=== PATIENT | female | born 1975 | race Caucasian/White ===

== ENCOUNTER 2018-05-09 14:12 | Emergency (ER) | payer MEDICARE, MEDICAID ==
[~2018-05-09] VITALS: Ht 160 cm; Wt 72.1 kg
[~2018-05-09 14:12] MED LIST: AMIT25TA9 PO; BCL10T PO; CLCX200C PO; FENO135C PO; LSNP20T PO; LURA80TA PO; METH-53 PO; METO100T5 PO; MILN50TA6 PO; NF-ESOM40C PO; OXYC60TA9 PO; ROSU20TA14 PO; ZOLP12.5 PO
--- OUTSIDE RECORDS SUMMARY | 2018-05-09 14:20 | XMS REPORT | Encounter Summary ---
Author Author [facility] Organization [facility] Address Unknown Phone Unavailable Care Team Providers Care Telecommunications Line Mechanic Name Role Phone Jolly Bonilla MD Unavailable Osvaldo Maharaj MD Unavailable Tano Freeman MD PCP Reason for Visit * Reason Comments Infusion Therapy * Treatment (Routine) Referred By Contact Referred To Contact Status Reason Specialty Diagnoses / Procedures Romel Grayson MD [address] [facility] [address] [place] [address] [facility] Cl [address] [place] [address] Closed Diagnoses Age-related osteoporosis without current pathological fracture P rocedures ZOLEDRONIC ACID (RECLAST) Encounter Details Care Team Description Date Type Department Romel Grayson MD [address] [facility] [address] [place] [address] [phone] Age-related osteoporosis without current pathological fracture (Primary Dx) 05/04/2018 Infusion Infusion Therapy Clinic - [facility] [address] [place] [address] Social History Date Tobacco Use Types Packs/Day Years Used Current Every Day Smoker Cigarettes Smokeless Tobacco: Never Used Comments: Tried vape once and got very ill. Alcohol Use Drinks/Week oz/Week Comments No Sex Assigned at Date Recorded Not on file Industry Job Start Date Occupation Not on file Not on file Not on file Travel End Travel History Travel Start No recent travel history available. as of this encounter Last Filed Vital Signs Time Taken Vital Sign Reading 05/04/2018 2:04 PM IRIDOLOGIST Blood Pressure 113/74 05/04/2018 2:04 PM IRIDOLOGIST Pulse 89 05/04/2018 2:04 PM IRIDOLOGIST Temperature 37.1 C (98.8 F) 05/04/2018 2:04 PM IRIDOLOGIST Respiratory Rate 14 05/04/2018 2:04 PM IRIDOLOGIST Oxygen Saturation 100% - Inhaled Oxygen - Concentration - Weight - - Height - - Body Mass Index - in this encounter Functional Status Date of Assessment Functional Status Response 05/04/2018 Does the patient have a hearing impairment: Yes 05/04/2018 Does the patient have a visual impairment: Yes 05/04/2018 Does the patient have impaired ambulation: Yes 05/04/2018 Does the patient have an activity of daily living No (ADL) impairment: 05/04/2018 Does the patient have an instrumental activity of Yes daily living (IADL) impairment: Date of Assessment Cognitive Status Response 05/04/2018 Does the patient have a cognitive impairment: Yes as of this encounter Plan of Treatment Not on fileas of this encounter Visit Diagnoses Diagnosis Age-related osteoporosis without current pathological fracture - Primary Senile osteoporosis in this encounter Administered Medications Action Date Dose Rate Site Medication Order MAR Action 05/04/2018 2:30 PM IRIDOLOGIST 5 mg zoledronic acid/mannitol/water (RECLAST) Given - New 5mg/100 mL IVPB Bag 5 mg, Intravenous, ONCE, 1 dose, Anastasia 05/04/18 at 1415, Flush IV site with NS at the completion of infusion., in this encounter
--- OUTSIDE RECORDS SUMMARY | 2018-05-09 14:20 | XMS REPORT | Clinical Summary ---
Author Author [facility] Organization [facility] Address Unknown Phone Unavailable Care Team Providers Care Fur Joiner Name Role Phone Jolly Bonilla MD Unavailable Osvaldo Maharaj MD Unavailable Tano Freeman MD PCP Source Comments Some departments are not documenting in the electronic medical record. If you do not see the information that you expected, contact Release of Information in the Health Information Management department at [phone] for further assistance in locating additional records.[facility] Allergies Comments Active Allergy Reactions Severity Noted Date Adhesive Tape (Rosins) RASH Medium 01/14/2018 Aspirin UNKNOWN 03/21/2014 Sulfamethoxazole-Trimetho RASH Medium 08/16/2016 prim Hornet Venom ANAPHYLAXIS 03/21/2014 Methadone NAUSEA AND 03/21/2014 VOMITING, ITCHING Tramadol NAUSEA AND 03/21/2014 VOMITING, ITCHING Venom-Wasp ANAPHYLAXIS 03/21/2014 Hydrocodone-Acetaminophen NAUSEA AND 03/21/2014 VOMITING, ITCHING Medications End Date Status Medication Sig Dispensed Refills Start Date Active metoprolol XL (TOPROL XL) Take 100 mg 0 100 mg tablet by mouth daily. Active cholecalciferol (Vitamin Take 2,000 0 D3) (VITAMIN D-3) 1,000 Units by units tablet mouth daily. Active Magnesium 100 mg cap Take 400 mg 0 by mouth. Active diclofenac(+) (VOLTAREN) Apply 2 g 0 1 % gel topical gel topically to affected area twice daily. Active fenofibrate Take 145 mg 0 nanocrystallized (TRICOR) by mouth 145 mg tablet daily. Take with food. Active montelukast (SINGULAIR) Take 10 mg by 0 10 mg tablet mouth daily. Active cetirizine (ZYRTEC) 1 Take 10 mg by 0 mg/mL oral solution mouth daily. Active nortriptyline (PAMELOR) Take 50 mg by 0 10 mg capsule mouth at bedtime daily. Active ascorbic acid (VITAMIN C) Take 4,000 mg 0 500 mg tablet by mouth daily. Active vitamins, B complex tab Take 1 Tab by 0 mouth daily. Active potassium chloride SR Take 10 mEq 0 (K-DUR) 10 mEq by mouth as tabletIndications: one Needed (With daily PRN Lasix.). Take with a meal and a full glass of water. Active umeclidinium-vilanterol Inhale 1 puff 0 62.5-25 mcg/actuation by mouth into dsdv the lungs daily. Active fluticasone (FLOVENT HFA) Inhale 2 0 220 mcg/actuation inhaler Puffs by mouth into the lungs daily. Active latanoprost (XALATAN) Place 1 drop 0 0.005 % ophthalmic into or solution around eye(s) at bedtime daily. Active ZOLEDRONIC Administer 0 ACID/MANNITOL-WATER through vein. (RECLAST IV) Active atorvastatin (LIPITOR) 80 Take 80 mg by 0 mg tablet mouth daily. Active duloxetine DR (CYMBALTA) Take one 0 60 mg capsule capsule by 8 mouth daily. Active insulin aspart U-100 Inject 0 (NOVOLOG FLEXPEN) 100 fifteen Units 8 unit/mL injection PEN under the skin three times daily with meals. Active insulin glargine (LANTUS Inject thirty 0 SOLOSTAR, BASAGLAR) 100 Units under 8 unit/mL (3 mL) injection the skin PEN twice daily. Active cariprazine (VRAYLAR) 1.5 Take 1.5 mg 0 mg cap by mouth daily. Active ramelteon(+) (ROZEREM) 8 Take 8 mg by 0 mg tab mouth at bedtime as needed. Active bumetanide (BUMEX) 1 mg Take 1 mg by 0 tablet mouth daily. Active metFORMIN-ER(+) Take 1,000 mg 0 (FORTAMET) 500 mg by mouth extended release tablet twice daily. 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 She additionally reports recurrent otitis media. She has had pneumonia five total times. She received Pneumovax in 2009. She has been hospitalized twice for pneumonia. She has had two pneumonias since Pneumovax. No osteomyelitis, no meningitis. No cellulitis. No skin abscess. - Immunodeffiency evaluation revealed normal quantitative studies of immunoglobulins (IgA, IgG, IgM), normal CH50, T&B cell panel normal aside from slightly elevated CD4 and CD8, normal lymphocyte proliferation to mitogens and antigens, normal oxidative burst, normal MBL, normal response to tetanus and haemophilus. She did however have suboptimal pneumococcal IgG antibody concentrations with 11 of 23 serotypes demonstrating a sufficient response, post booster pneumovax she had an excellent response with 22/23 serotypes tested in the protective range. - I had a long discussion with her and her mother that her immune evaluation reveals she has a normal healthy immune system. She is most likely getting recurrent bronchitis due to her COPD and possibly allergic rhinitis (will optimize tx for this). She has already been referred to pulmonary for further evaluation. Allergic rhinitis 03/21/2014 Overview: History of allergic rhinoconjunctivitis. She was on allergy immunotherapy approximately one year ago by an model maker plaster, Dr. Bustos, in [place], [place] and also for one year in 2007. She was skin tested in September 2012, and she reports she was positive for everything. She was unable to complete immunotherapy secondary to recurrent infections and her not being able to complete shots. She has tried Flonase, Nasonex, and Nasacort, and they have not been helpful. Tried Qnasl last visit but did not like and switched back to Flonase. Will repeat skin testing next visit. - Continue Flonase two sprays per nostril daily. - Continue cetirizine 10 mg p.o. daily. - Continue Singulair 10 mg p.o. daily. - Continue Astelin nose spray 2 puffs in each nostril twice a day - Hold Zyrtec and Astelin for 7 days prior to your next appt for skin testing Allergy or toxic reaction to venom 03/21/2014 Overview: - Will readdress once aeroallergen skin testing complete - Continue to carry injectable epinephrine (EpiPen). - Serum tryptase normal Cough 03/21/2014 Overview: She has an apparent history of asthma as a child with a positive methacholine challenge. Spirometry at last visit was normal. Complete PFT's showed Normal ventilatory studies with a moderate defect in diffusion. There is no significant improvement in lung function following the administration of a bronchodilator. - Suspect she may have underlying COPD given 20+ pack year smoking history and frequent mucus production - Discussed importance of smoking cessation - Referred to pulmonary for further evaluation of decreased DLCO Resolved Problems Problem Noted Date Resolved Date Aseptic meningitis 01/14/2018 01/20/2018 Diabetic ketoacidosis with coma associated with diabetes mellitus due to 01/20/2018 underlying condition Encephalopathy 01/14/2018 01/20/2018 On mechanically assisted ventilation 01/14/2018 01/20/2018 Altered mental status, unspecified 01/13/2018 01/20/2018 Encounters Care Team Description Date Type Specialty Romel Grayson MD Age-related osteoporosis without current pathological fracture (Primary Dx) 05/04/2018 Infusion Infusion Riccardo Shafer RPH 04/28/2018 Orders Only Infusion Romel Grayson MD Results 04/24/2018 Telephone Endocrinology, Metabolism & Genetics Encounter for monitoring denosumab therapy; Osteoporosis, unspecified osteoporosis type, unspecified pathological fracture presence; Postmenopausal osteoporosis; Encounter for monitoring zoledronate therapy 04/18/2018 Clinical Endocrinology, Metabolism Support & Genetics Romel Grayson MD Age-related osteoporosis without current pathological fracture (Primary Dx); Vitamin D deficiency 04/03/2018 Office Visit Endocrinology, Metabolism & Genetics Romel Grayson MD Encounter for monitoring denosumab therapy (Primary Dx); Osteoporosis, unspecified osteoporosis type, unspecified pathological fracture presence 03/24/2018 Orders Only Endocrinology, Metabolism & Genetics from Last 3 Months Immunizations Name Dates Previously Given Next Due Pneumococcal Vaccine 04/11/2014 (23-Yarelis Adult) Family History Medical History Relation Name Comments Hypertension Other Relation Name Status Comments Other Social History Date Tobacco Use Types Packs/Day Years Used Current Every Day Smoker Cigarettes Smokeless Tobacco: Never Used Tobacco Cessation: Ready to Quit: No; Counseling Given: No Comments: Tried vape once and got very ill. Alcohol Use Drinks/Week oz/Week Comments No Sex Assigned at Date Recorded Not on file Industry Job Start Date Occupation Not on file Not on file Not on file Travel End Travel History Travel Start No recent travel history available. Last Filed Vital Signs Time Taken Vital Sign Reading 05/04/2018 2:04 PM EMERGENCY ROOM CLERK Blood Pressure 113/74 05/04/2018 2:04 PM EMERGENCY ROOM CLERK Pulse 89 05/04/2018 2:04 PM EMERGENCY ROOM CLERK Temperature 37.1 C (98.8 F) 05/04/2018 2:04 PM EMERGENCY ROOM CLERK Respiratory Rate 14 05/04/2018 2:04 PM EMERGENCY ROOM CLERK Oxygen Saturation 100% - Inhaled Oxygen - Concentration 04/03/2018 1:16 PM EMERGENCY ROOM CLERK Weight 73.4 kg (161 lb 12.8 oz) 04/03/2018 1:16 PM EMERGENCY ROOM CLERK Height 161.3 cm (5' 3.5") 04/03/2018 1:16 PM EMERGENCY ROOM CLERK Body Mass Index 28.21 Plan of Treatment Health Maintenance Due Date Last Done Comments PHYSICAL (COMPREHENSIVE) 1983 EXAM HIV SCREENING 1991 DILATED EYE EXAM 1994 DTAP/TDAP VACCINES (1 - 1994 Tdap) FOOT EXAM 1994 MICROALBUMIN 1994 CERVICAL CANCER SCREENING 2006 BREAST CANCER SCREENING 2016 INFLUENZA VACCINE 12/28/2017 HBA1C 07/22/2018 01/19/2018 PNEUMONIA VACCINE (DM) Completed 04/11/2014 Procedures Comments Procedure Name Priority Date/Time Associated Diagnosis BONE DENSITY SPINE/HIP Routine 04/18/2018 Encounter for monitoring denosumab therapy Osteoporosis, unspecified osteoporosis type, unspecified pathological fracture presence from Last 3 Months Results * BONE DENSITY SPINE/HIP (04/18/2018) Narrative Performed At Performing Organization Address City/State/Zipcode Phone Number IN CLINIC from Last 3 Months Insurance Payer Benefit Subscriber ID Type Phone Address Plan / Group MEDICARE MEDICARE xxxxxxxxxxx Medicare PART A AND B [facility] MEDICAID [facility] xxxxxxxxxxx Medicaid [employer] [place] Advance Directives Patient has advance care planning documents, and code status on file. For more information, please contact: [facility] [address] [place] [address] Date Inactivated Comments Code Status Date Activated 01/20/2018 3:07 PM Full Code 01/13/2018 10:49 PM Provider has discussed Code Status No, more discussion w/Patient or Family? needed
--- OUTSIDE RECORDS SUMMARY | 2018-05-09 14:20 | XMS REPORT | Encounter Summary ---
Author Author [facility] Organization [facility] Address Unknown Phone Unavailable Care Team Providers Care Mounter Saxophones Name Role Phone Jolly Bonilla MD Unavailable Osvaldo Maharaj MD Unavailable Tano Freeman MD PCP Encounter Details Care Team Description Date Type Department Riccardo Shafer [facility] 04/28/2018 Orders Only Infusion Therapy Clinic - [place] [address] [place] [address] Social History Date Tobacco Use Types Packs/Day [...] travel history available. as of this encounter Functional Status Date of Assessment Functional Status Response 01/20/2018 Does the patient have a hearing impairment: No 01/20/2018 Does the patient have a visual impairment: No 01/20/2018 Does the patient have impaired ambulation: No 01/20/2018 Does the patient have an activity of daily living No (ADL) impairment: 01/20/2018 Does the patient have an instrumental activity of No daily living (IADL) impairment: Date of Assessment Cognitive Status Response 01/20/2018 Does the patient have a cognitive impairment: No as of this encounter Plan of Treatment Not on fileas of this encounter Visit Diagnoses Not on filein this encounter
--- OUTSIDE RECORDS SUMMARY | 2018-05-09 14:20 | XMS REPORT | Encounter Summary ---
Author Author [facility] Organization [facility] Address Unknown Phone Unavailable Care Team Providers Care City Constable Name Role Phone Jolly Bonilla MD Unavailable Osvaldo Maharaj MD Unavailable Tano Freeman MD PCP Reason for Referral * Radiology Services (Routine) Referred By Contact Referred To Contact Status Reason Specialty Diagnoses / Procedures Romel Grayson MD [address] [facility] [address] [place] [address] New Request Radiology Diagnoses Encounter for monitoring denosumab therapy Osteoporosis, unspecified osteoporosis type, unspecified pathological fracture presence P rocedures BONE DENSITY SPINE/HIP Reason for Visit * Reason Comments Test/procedure Encounter Details Care Team Description Date Type Department Encounter for monitoring denosumab therapy; Osteoporosis, unspecified osteoporosis type, unspecified pathological fracture presence; Postmenopausal osteoporosis; Encounter for monitoring zoledronate therapy 04/18/2018 Clinical [facility] Support Physicians - Internal Medicine [facility] [address] [place] [address] Social History Date Tobacco Use Types Packs/Day [...] Treatment Not on fileas of this encounter Procedures Comments Procedure Name Priority Date/Time Associated Diagnosis BONE DENSITY SPINE/HIP Routine 04/18/2018 Encounter for monitoring denosumab therapy Osteoporosis, unspecified osteoporosis type, unspecified pathological fracture presence in this encounter Results * BONE DENSITY SPINE/HIP (04/18/2018) Narrative Performed At Performing Organization Address City/State/Zipcode Phone Number IN CLINIC in this encounter Visit Diagnoses Diagnosis Encounter for monitoring denosumab therapy Encounter for therapeutic drug monitoring Osteoporosis, unspecified osteoporosis type, unspecified pathological fracture presence Postmenopausal osteoporosis Senile osteoporosis Encounter for monitoring zoledronate therapy Encounter for therapeutic drug monitoring in this encounter
--- OUTSIDE RECORDS SUMMARY | 2018-05-09 14:20 | XMS REPORT | Encounter Summary ---
Author Author [facility] Organization [facility] Address Unknown Phone Unavailable Care Team Providers Care Contracts Administrator Name Role Phone Jolly Bonilla MD Unavailable Osvaldo Maharaj MD Unavailable Tano Freeman MD PCP Reason for Visit * Reason Comments Results Encounter Details Care Team Description Date Type Department Romel Grayson MD [address] [facility] [address] [place], [place] [id number] Results 04/24/[address] [facility] Physicians - Internal Medicine [facility] [address] [place] [address] Social History Date Tobacco Use Types Packs/Day [...] cognitive impairment: No as of this encounter Miscellaneous Notes * Telephone Encounter - Lazara Ayala RN - 04/24/2018 1:51 PM SAP SOLUTION MANAGER CONSULTANT Called pt Relayed message She verbalized understanding * Telephone Encounter - Romel Grayson MD - 04/24/2018 1:32 PM SAP SOLUTION MANAGER CONSULTANT Please call patient and let her know that I have reviewed her bone density and it is stable since the most recent one completed in July 2016. We will proceed with Reclast dose this year. I have ordered. The infusion clinic will call her to schedule. in this encounter Plan of Treatment Not on fileas of this encounter Visit Diagnoses Not on filein this encounter
--- OUTSIDE RECORDS SUMMARY | 2018-05-09 14:20 | XMS REPORT | Encounter Summary ---
Author Author [facility] Organization [facility] Address Unknown Phone Unavailable Care Team Providers Care Blister Pack Operator Name Role Phone Jolly Bonilla MD Unavailable Osvaldo Maharaj MD Unavailable Tano Freeman MD PCP Reason for Visit * Reason Comments Osteoporosis Encounter Details Care Team Description Date Type Department Romel Grayson MD [address] [facility] [address] [place] [address] Age-related osteoporosis without current pathological fracture (Primary Dx); Vitamin D deficiency 04/03/2018 Office Visit [facility] - Internal Medicine [facility] Level 5A [address] [place] [address] Social History Date Tobacco Use [...] Vital Signs Time Taken Vital Sign Reading 04/03/2018 1:16 PM ARNP Blood Pressure 125/85 04/03/2018 1:16 PM ARNP Pulse 89 - Temperature - - Respiratory Rate - - Oxygen Saturation - - Inhaled Oxygen - Concentration 04/03/2018 1:16 PM ARNP Weight 73.4 kg (161 lb 12.8 oz) 04/03/2018 1:16 PM ARNP Height 161.3 cm (5' 3.5") 04/03/2018 1:16 PM ARNP Body Mass Index 28.21 in this encounter Functional Status Date of [...] cognitive impairment: No as of this encounter Progress Notes * Romel Grayson MD - 04/03/2018 2:40 PM ARNP Date of Service: 04/03/2018 Subjective: Rupali Ya is a 43 y.o. female Presented to the [facility] today for ongoing management of osteoporosis. She is under the primary care of Dr. Dumont. Her other medical problems include history of bipolar disorder, vitamin D deficiency, type 2 diabetes, and gastroesophageal reflux disease. History of Present Illness Ms. Ya was diagnosed with osteoporosis around 2012. Summary of osteoporosis history and treatment is as below. Since her last appointment, she has not had any fractures. She has fallen after she lost her balance and did not have any fractures at that time. She has been participating in physical therapy for the past 3 months. She last visited his dentist in 2002, she had dental extraction for her teeth when she was 26 years old. She last seen a dentist in 2002. She has symptoms of heartburn. She continues to have epidural injections intermittently, her most recent one was in November 2017, she does not take any calcium supplementation, she consumes 8 or more servings of dairy per day. She was admitted in December 2017 with aseptic meningitis that was thought to be medication induced. She has questions today were than Reclast can cause aseptic meningitis, most recently last dose was February 2017. She continues to take vitamin D 2000 IUs daily. Review of Systems A comprehensive review of system was obtained from patient today and was positive for back pain, pelvic pain, poor balance. The remainder of review of systems. Past Medical History: Diagnosis Date Allergic headache Asthma Bipolar 1 disorder (HCC) DM (diabetes mellitus) (HCC) Immunodeficiency (HCC) Ovarian cancer (HCC) Recurrent infections Thyroid disease Urticaria Past Surgical History: Procedure Laterality Date APPENDECTOMY CHOLECYSTECTOMY HYSTERECTOMY at age 34 Family History Problem Relation Age of Onset Hypertension Other Social History Social History Marital status: Spouse name: N/A Number of children: N/A Years of education: N/A Occupational History Not on file. Social History Main Topics Smoking status: Current Every Day Smoker Types: Cigarettes Smokeless tobacco: Never Used Comment: Tried vape once and got very ill. Alcohol use No Drug use: No Sexual activity: Not on file Other Topics Concern Not on file Social History Narrative No narrative on file Objective: ascorbic acid (VITAMIN C) 500 mg tablet Take 4,000 mg by mouth daily. atorvastatin (LIPITOR) 80 mg tablet Take 80 mg by mouth daily. bumetanide (BUMEX) 1 mg tablet Take 1 mg by mouth daily. cariprazine (VRAYLAR) 1.5 mg cap Take 1.5 mg by mouth daily. cetirizine (ZYRTEC) 1 mg/mL oral solution Take 10 mg by mouth daily. cholecalciferol (Vitamin D3) (VITAMIN D-3) 1,000 units tablet Take 2,000 Units by mouth daily. diclofenac(+) (VOLTAREN) 1 % gel topical gel Apply 2 g topically to affected area twice daily. duloxetine DR (CYMBALTA) 60 mg capsule Take one capsule by mouth daily. fenofibrate nanocrystallized (TRICOR) 145 mg tablet Take 145 mg by mouth daily. Take with food. fluticasone (FLOVENT HFA) 220 mcg/actuation inhaler Inhale 2 Puffs by mouth into the lungs daily. insulin aspart U-100 (NOVOLOG FLEXPEN) 100 unit/mL injection PEN Inject fifteen Units under the skin three times daily with meals. (Patient taking differently: Inject 25 Units under the skin three times daily with meals.) insulin glargine (LANTUS SOLOSTAR, BASAGLAR) 100 unit/mL (3 mL) injection PEN Inject thirty Units under the skin twice daily. (Patient taking differently : Inject 35 Units under the skin twice daily.) latanoprost (XALATAN) 0.005 % ophthalmic solution Place 1 drop into or around eye(s) at bedtime daily. Magnesium 100 mg cap Take 400 mg by mouth. metFORMIN-ER(+) (FORTAMET) 500 mg extended release tablet Take 1,000 mg by mouth twice daily. metoprolol XL (TOPROL XL) 100 mg tablet Take 100 mg by mouth daily. montelukast (SINGULAIR) 10 mg tablet Take 10 mg by mouth daily. nortriptyline (PAMELOR) 10 mg capsule Take 50 mg by mouth at bedtime daily. potassium chloride SR (K-DUR) 10 mEq tablet Take 10 mEq by mouth as Needed ( With Lasix.). Take with a meal and a full glass of water. ramelteon(+) (ROZEREM) 8 mg tab Take 8 mg by mouth at bedtime as needed. umeclidinium-vilanterol 62.5-25 mcg/actuation dsdv Inhale 1 puff by mouth into the lungs daily. vitamins, B complex tab Take 1 Tab by mouth daily. ZOLEDRONIC ACID/MANNITOL-WATER (RECLAST IV) Administer through vein. Vitals: 04/03/18 1316 BP: 125/85 Pulse: 89 Weight: 73.4 kg (161 lb 12.8 oz) Height: 161.3 cm (63.5") Body mass index is 28.21 kg/m. Physical Exam Vitals reviewed. Constitutional: oriented to person, place, and time. On a wheelchair. HENT: Head: Normocephalic and atraumatic. Mouth/Throat: Oropharynx is clear and moist. Eyes: Conjunctivae normal Neck: Normal range of motion. Neck supple. Cardiovascular: Normal rate Pulmonary/Chest: Effort normal Abdominal: Soft. Musculoskeletal: exhibits no edema. Neurological: alert and oriented to person, place, and time. Neuro exam is grossly unremarkable Skin is warm and dry. No rash noted. No erythema. Labs reviewed Bone density reviewed. Assessment and Plan: Osteoporosis Diagnosis : 2012, first bone density was 05/2015 Risk factors: smoking, premature menopause (total abdominal hysterectomy at age 34 for ovarian cancer, and was treated with hormone replacement therapy for one year after that) , vitamin D deficiency, history of alcohol abuse in the past ( quit 1994), family history of osteoporosis in brother and possibly mother, multiple steroid injections in the past, diabetes type 2, chronic vitamin D deficiency. Fracture history Multiple stress fracture in bilateral fe9 th rib fracture 11/2016 after chiropractor treatment. 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 Treatment history Prolia 2012 - 05/2015 Forteo 05/2015 - 08/2015 Prolia 09/2015 - 06/2016 (last dose was 06/2016). Reclast: 02/2017 Plan: Bonnie was evaluated by Dr. Watt and no evidence of osteogenesis imperfecta was found. She has tolerated Reclast well in February 2017. She is pleased that she has not had fracture over the past year although she has fallen. She would like to continue with the treatment. She was supposed to get bone density today however, the senior radiation protection technician was out of the office. Bone density was rescheduled on April 18. Once the results of this test is back, will proceed with Reclast depending on results. Vitamin D deficiency Currently on 2000IU daily Most recent vitamin D level was normal 62 in October 2016. Diabetes type 2 Diabetes being managed by primary care physician. Return to clinic in 1 year with repeat bone density. in this encounter Plan of Treatment Not on fileas of this encounter Visit Diagnoses Diagnosis Age-related osteoporosis without current pathological fracture - Primary Senile osteoporosis Vitamin D deficiency Unspecified vitamin D deficiency in this encounter
--- OUTSIDE RECORDS SUMMARY | 2018-05-09 14:21 | XMS REPORT | Encounter Summary ---
Author Author [facility] Organization [facility] Address Unknown Phone Unavailable Care Team Providers Care Residential Specialist Name Role Phone Jolly Bonilla MD Unavailable Heena Dumont MD PCP Osvaldo Maharaj MD Unavailable Reason for Referral * Radiology Services (Routine) Referred By Contact Referred To Contact Status Reason Specialty Diagnoses / Procedures Romel Graysno MD [address] [place] [address] [address] [place] [address] New Request Radiology Diagnoses Encounter for monitoring denosumab therapy Osteoporosis, unspecified osteoporosis type, unspecified pathological fracture presence P rocedures BONE DENSITY SPINE/HIP Encounter Details Care Team Description Date Type Department Romel Grayson MD [address] [place] [address] [address] [place], [place] [id number] Encounter for monitoring denosumab therapy (Primary Dx); Osteoporosis, unspecified osteoporosis type, unspecified pathological fracture presence 03/24/2018 Orders Only [facility] - Internal Medicine [facility] [address] [place] [address] Social History Date Tobacco Use [...] Treatment Not on fileas of this encounter Results * BONE DENSITY SPINE/HIP (04/18/2018) Narrative Performed At Performing Organization Address City/State/Zipcode Phone Number IN CLINIC in this encounter Visit Diagnoses Diagnosis Encounter for monitoring denosumab therapy - Primary Encounter for therapeutic drug monitoring Osteoporosis, unspecified osteoporosis type, unspecified pathological fracture presence in this encounter
--- OUTSIDE RECORDS SUMMARY | 2018-05-09 14:21 | XMS REPORT | CCD ---
Author Author [facility] Organization Unknown Address [address] [facility] [address] [place], [place] [id number] Care Team Providers Care Cash Crop Farmer Name Role Phone FRANK, MABEL DO Attphys FRANK, MABEL DO Prisurg Vital Signs Unknown or Not Available. Allergies Allergy Code Allergy Type Reaction Status ULTRAM 062956 Drug allergy Active METHADONE 6813 Drug allergy Active ASPIRIN 1191 Drug allergy Active VICODIN 039441 Drug allergy Active Procedures Procedure Code Procedure Type Date HAND; 2VWS 54579599 SNOMED CT 11/26/2014 History of Immunizations Immunization Code Date pneumococcal polysaccharide PPV23 33 05/30/2010 Influenza, seasonal, injectable 141 03/30/2011 Problems Problem Code Start Date Resolved Date Status SUICIDE ATTEMPT BY DRUG INGESTION 18357168 08/18/2011 Active BIPOLAR 1 DISORDER 881186690 Active HYPERLIPIDEMIA 76733202 Active Results Unknown or Not Available. Active Medications Unknown or Not Available. Medications Administered During Visit Unknown or Not Available. Encounters Encounter Diagnosis Diagnosis Code Start Date CONTUSION OF HANDS 75537 11/26/2014 Social History Smoking Status Code Start Date End Date Current every day smoker 261942460 Patient Decision Aids Unknown or Not Available. Discharge Instructions You were admitted to [facility] on 11/26/2014 with a principal diagnosis of CONTUSION OF HANDS. You were discharged from [facility] on 11/26/2014. Should you have any questions prior to discharge, please contact a member of your healthcare team. If you have left the hospital and have any questions, please contact your primary care physician. Chief Complaint and Reason For Visit Chief Complaint Date of Onset FINGER INJURY Function Status Unknown or Not Available. Referral/Transition of Care Unknown or Not Available.
--- OUTSIDE RECORDS SUMMARY | 2018-05-09 14:30 | XMS REPORT ---
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 Also with cervicalgia, requesting eval for interventional procedures. CMP 09/16/2015 12:00 AM EKG (12-lead electrocardiogram) 11/13/2015 12:00 AM HEMOGLOBIN 12/16/2015 12:00 AM COMPREHENSIVE METABOLIC PANEL 09/09/2016 12:00 AM CBC W/ AUTO DIFF (RFLX MAN DIFF IF IND). 09/09/2016 12:00 AM Lipid profile 09/24/2016 12:00 AM Urine dipstick in office (automated) 11/02/2016 12:[address] (with and without contrast) 11/03/2012 12:[address] (with and without contrast) 11/03/2012 12:00 AM Liver imaging (SPECT) 11/14/2012 12:00 AM Lipase 11/27/2012 12:00 AM Peripheral Blood Smear 11/27/2012 12:00 AM Urine culture 11/27/2012 12:00 AM allergies 04/30/2016 1:40 PM Peripheral blood smear review by pathologist 12/12/2013 12:00 AM Injection,Subcutaneous/Intramuscul 03/29/2014 12:00 AM Injection,Subcutaneous/Intramuscul 03/29/2014 12:00 AM IM Injection 03/29/2014 12:00 AM Chest X-Ray Pa & Lat 06/12/2014 12:00 AM CBC with Auto 10/01/2014 12:00 AM KUB 09/25/2014 12:00 AM Medications Active Name Start Date Estimated Completion Date SIG Comments Nexium 40 mg oral capsule,delayed release(DR/EC) take 1 capsule (40 mg) by oral route once daily Pyridium 200 mg oral tablet 09/11/2013 TAKE 1 TABLET(S) BY MOUTH TID Vitamin D3 50,000 units then 2,000 units 09/19/2013 one tablet (50,000 units) once weekly for twelve weeks, then 2,000 units once daily for 30 days. amitriptyline 25 mg oral tablet 12/07/2013 TAKE 1-2 TABLETS BY ORAL ROUTE ONCE DAILY AT BEDTIME PRN Janumet 50-1,000 mg oral tablet 01/08/2014 take 1 tablet by oral route 2 times per day with meals meloxicam 7.5 mg oral tablet 03/07/2014 TAKE 1-2 TABLETS BY ORAL ROUTE QD PRN FOR BACK PAIN magnesium oxide 400 mg oral capsule take 1 capsule by oral route daily EpiPen 0.3 mg/0.3 mL injection auto-injector inject 0.3 milliliter (0.3 mg) by intramuscular route once as needed for anaphylaxis EpiPen 0.3 mg/0.3 mL injection auto-injector inject 0.3 milliliter (0.3 mg) by intramuscular route once as needed for anaphylaxis fenofibrate 120 mg oral tablet take 1 tablet (120 mg) by oral route once daily Flovent HFA 220 mcg/actuation inhalation HFA aerosol inhaler 09/01/2015 inhale 1 puff (220 mcg) by inhalation route 2 times per day Anoro Ellipta 62.5-25 mcg/actuation inhalation blister with device 09/01/2015 inhale 1 puff by inhalation route once daily at the same time each day Anoro Ellipta 62.5-25 mcg/actuation inhalation blister with device 12/02/2015 INHALE 1 PUFF BY INHALATION ROUTE ONCE DAILY AT THE SAME TIME EACH DAY clobetasol-emollient 0.05 % topical foam 01/19/2016 APPLY BY EXTERNAL ROUTE ONCE DAILY omeprazole 20 mg oral capsule,delayed release(DR/EC) 03/19/2016 TAKE 1 CAPSULE (20 MG) BY ORAL ROUTE ONCE DAILY BEFORE A MEAL FOR 30 DAYS albuterol sulfate 2.5 mg /3 mL (0.083 %) inhalation solution for nebulization 07/19/2017 inhale 3 milliliters (2.5 mg) by nebulization route every 8 hours for 30 days montelukast 10 mg oral tablet 07/19/2017 TAKE 1 TABLET BY MOUTH EVERY EVENING FOR 30 DAYS Flomax 0.4 mg oral capsule,extended release 24hr take 1 capsule (0.4 mg ) by oral route once daily 1/2 hour following the same meal each day cetirizine 10 mg oral tablet 10/12/2017 TAKE 1 TABLET BY MOUTH EVERY DAY potassium chloride 10 mEq oral capsule, extended release 10/27/2017 TAKE 1 CAPSULE (10 MEQ) BY ORAL ROUTE ONLY WHEN TAKING Bumetinide bumetanide 1 mg oral tablet 10/27/2017 TAKE 1 TABLET (1 MG) BY ORAL ROUTE ONCE DAILY FOR 7 DAYS Lantus U-100 Insulin 100 unit/mL subcutaneous solution 54 units Novolog U-100 Insulin aspart 100 unit/mL subcutaneous solution 8 units increasing 1 unit every 50 Cymbalta oral unsure of dose amount. takes one tablet daily Fish Oil 120 mg-180 mg- 60 mg-1,200 mg oral capsule,delayed release(DR/EC) take 1 capsule by oral route daily Vitamin C 1,000 mg oral tablet extended release take 6 tablets by oral route daily Voltaren 1 % topical gel apply 2 gram to the affected area(s) by topical route 4 times per day Vraylar 1.5 mg (1)- 3 mg (6) oral capsule,dose pack take as directed Rozerem 8 mg oral tablet take 1 tablet (8 mg) by oral route once daily at bedtime Name Start Date Expiration Date SIG Comments Zoloft 100 mg oral tablet take 1.5 tablets (150 mg) by oral route once daily dosage change diclofenac sodium 75 mg oral tablet,delayed release (DR/EC) 11/17/20092009 take 1 tablet (75 mg) by oral route daily x 10 days Percocet 5-325 mg oral tablet 12/16/2009 12/23/2009 take 1 - 2 tablets by oral route every 4-6 hours as needed for 7 days Biaxin 250 mg oral tablet 01/29/2010 02/08/2010 take 1 tablet (250 mg) by oral route every 12 hours for 10 days Promethazine VC-Codeine 6.25-5-10 mg/5 mL oral syrup 01/29/2010 02/05/2010 take 5 milliliters by oral route every 6 hours as needed, not to exceed 30 mL in 24 hours for 7 days Medrol (Simon) 4 mg oral tablets,dose pack 01/29/2010 02/03/2010 take as directed for 5 days amoxicillin 500 mg oral tablet 02/06/2010 02/16/2010 take 1 tablet (500 mg) by oral route 3 times per day for 10 days nystatin 100,000 unit/mL oral suspension 02/06/2010 02/13/2010 take 5 milliliters (500,000 unit) by oral route 4 times per day for 7 days baclofen 20 mg oral tablet 12/01/2010 12/31/2010 TAKE 1 TABLET BY MOUTH THREE TIMES DAILY methocarbamol 500 mg oral tablet 12/01/2010 12/31/2010 TAKE 1 TABLET BY MOUTH TWICE DAILY NEEDED FOR PAIN prednisone 10 mg oral tablet 02/17/2011 02/22/2011 take 1 tablet (10 mg) by oral route once daily for 5 days Cymbalta 60 mg oral capsule,delayed release(DR/EC) 03/02/2011 04/01/2011 take 1 capsule (60 mg) by oral route once daily for 30 days Zithromax Z-Simon 250 mg oral tablet 04/28/2011 05/03/2011 take 2 tablets (500 mg) by oral route once daily for 1 day then 1 tablet (250 mg) by oral route once daily for 4 days Voltaren 1 % topical gel 05/11/2011 07/10/2011 apply 2 gram to the affected area(s) by topical route 4 times per day for 30 days Bentyl 10 mg oral capsule 05/14/2011 06/13/2011 take 1 capsule (10 mg) by oral route 3 times per day for 30 days Cipro 500 mg oral tablet 06/15/2011 06/22/2011 take 1 tablet (500 mg) by oral route every 12 hours for 7 days Zithromax Z-Simon 250 mg oral tablet 08/02/2011 08/07/2011 take 2 tablets (500 mg ) by oral route once daily for 1 day then 1 tablet (250 mg) by oral route once daily for 4 days Geodon 60 mg oral capsule 09/10/2011 10/10/2011 take 2 capsules by oral route once a day (in the evening) for 30 days Crestor 20 mg oral tablet 12/09/2011 12/09/2011 take 1 tablet (20 mg) by oral route once daily Zithromax Z-Simon 250 mg oral tablet 02/09/2012 02/14/2012 take 2 tablets (500 mg) by oral route once daily for 1 day then 1 tablet (250 mg) by oral route once daily for 4 days meloxicam 15 mg oral tablet 02/19/2012 05/19/2012 TAKE 1 TABLET BY MOUTH EVERY DAY FOR PAIN Zoloft 100 mg oral tablet 03/30/2012 04/29/2012 take 1.5 tablets (150 mg) by oral route once daily for 30 days Geodon 80 mg oral capsule 03/30/2012 04/29/2012 take 1 capsule by oral route BID Trilipix 135 mg oral capsule,delayed release(/EC) 04/24/2012 07/23/2012 take 1 capsule (135 mg) by oral route once daily for 30 days Savella 50 mg oral tablet 05/26/2012 08/24/2012 take 1 tablet (50 mg) by oral route 2 times per day for 30 days Zithromax Z-Simon 250 mg oral tablet 06/20/2012 06/25/2012 take 2 tablets (500 mg) by oral route once daily for 1 day then 1 tablet (250 mg) by oral route once daily for 4 days Ambien CR 12.5 mg oral tablet,ext release multiphase 07/24/2012 09/22/2012 take 1 tablet (12.5 mg) by oral route once daily at bedtime for 30 days Augmentin 875-125 mg oral tablet 10/11/2012 10/18/2012 take 1 tablet by oral route every 12 hours for 7 days Cipro 500 mg oral tablet 12/04/2012 12/11/2012 take 1 tablet (500 mg) by oral route every 12 hours for 7 days promethazine 25 mg oral tablet 12/29/2012 01/28/2013 take 1 tablet (25 mg) by oral route every 6 hours as needed Toprol XL 100 mg oral tablet extended release 24 hr 01/18/2013 04/18/2013 take 1 tablet (100 mg) by oral route once daily for 30 days Zithromax Z-Simon 250 mg oral tablet 01/25/2013 01/30/2013 take 2 tablets (500 mg ) by oral route once daily for 1 day then 1 tablet (250 mg) by oral route once daily for 4 days tizanidine 4 mg oral tablet 11/15/2012 12/07/2012 TAKE 1/2 TO 1 TABLET BY MOUTH TWICE DAILY NEEDED FOR PAIN Cipro 500 mg oral tablet 03/28/2013 04/04/2013 take 1 tablet (500 mg) by oral route 2 times per day for 7 days tizanidine 4 mg oral tablet 01/17/2012 11/27/2012 Cipro 500 mg oral tablet 04/17/2013 04/24/2013 take 1 tablet (500 mg) by oral route 2 times per day for 7 days Zithromax Z-Simon 250 mg oral tablet 05/09/2013 05/14/2013 take 2 tablets ( 500 mg) by oral route once daily for 1 day then 1 tablet (250 mg) by oral route once daily for 4 days Voltaren 1 % topical gel 06/04/2013 10/02/2013 apply 2 gram to the affected area (s) by topical route 4 times per day for 30 days Levaquin 750 mg oral tablet 07/16/2013 07/23/2013 take 1 tablet (750 mg) by oral route once daily for 7 days Zithromax Z-Simon 250 mg oral tablet 09/14/2013 09/19/2013 take 2 tablets (500 mg) by oral route once daily for 1 day then 1 tablet (250 mg) by oral route once daily for 4 days Tessalon Perles 100 mg oral capsule 10/02/2013 11/01/2013 take 1 capsule by oral route once a day (at bedtime) for 30 days Cipro 500 mg oral tablet 10/15/2013 10/22/2013 take 1 tablet (500 mg) by oral route every 12 hours for 7 days Zithromax Z-Simon 250 mg oral tablet 10/23/2013 10/28/2013 take 2 tablets (500 mg ) by oral route once daily for 1 day then 1 tablet (250 mg) by oral route once daily for 4 days ibuprofen 600 mg oral tablet 11/16/2013 12/16/2013 take 1 tablet (600 mg) by oral route every 6 hours as needed with food for 30 days amitriptyline 50 mg oral tablet 12/07/2013 03/07/2014 take 1tablets by oral route once daily at bedtime PRN lisinopril 20 mg oral tablet 01/02/2014 12/28/2014 take 1 tablet (20 mg) by oral route once daily for 90 days azithromycin 250 mg oral tablet 01/24/2014 01/29/2014 take 2 tablets (500 mg) by oral route once daily for 1 day then 1 tablet (250 mg) by oral route once daily for 4 days hydrocodone-acetaminophen 7.5-325 mg oral tablet 02/03/2014 02/06/2014 take 1 tablet by oral route every 6 hours as needed for pain for 3 days meloxicam 7.5 mg oral tablet 02/07/2014 03/09/2014 take 1-2 tablets by oral route QD PRN for back pain Estrace 0.01 % (0.1 mg/gram) vaginal cream 02/13/2014 02/14/2014 apply 1 applicatorful by vaginal route 3XW Lipitor 40 mg oral tablet 2014 07/02/2014 take 1 tablet (40 mg) by oral route once daily at bedtime for 30 days multivitamin oral capsule 2014 06/02/2014 take 1 capsule by oral route daily for 30 days capsaicin 0.075 % topical cream 03/15/2014 06/13/2014 apply to the affected area(s) by topical route 3 times per day for 30 days Savella 50 mg oral tablet 03/18/2014 TAKE 1 TABLET (50 MG) BY ORAL ROUTE 2 FOR 30 DAYS bacitracin 500 unit/gram topical ointment 04/02/2014 04/09/2014 apply to affected area by external route 2 times a day for 7 days Raleigh 5-325 mg oral tablet 06/17/2014 06/27/2014 take 1 tablet by oral route every 6 hours as needed for pain for 10 days Ambien CR 12.5 mg oral tablet,ext release multiphase 07/08/2014 10/06/2014 take 1 tablet (12.5 mg) by oral route once daily at bedtime for 30 days naproxen 500 mg oral tablet 07/12/2014 07/17/2014 take 1 tablet by oral route bid for 3 days then taper down 0.5 tab bid for 1 day and 0.5 tab once daily for 1 day. metronidazole 500 mg oral tablet 08/28/2014 09/04/2014 take 1 tablet by oral route 2 times a day for 7 days Bactrim 400-80 mg oral tablet take 1 tablet by oral route BID x 7 days. Finished on 10-12-14 Flagyl 500 mg oral tablet take 1 tablet by oral route BID x 14 days. Started 10-04-14 Tessalon Perles 100 mg oral capsule 10/09/2014 10/16/2014 take 1 capsule by oral route 2 times a day for 7 days ondansetron 4 mg oral tablet,disintegrating 12/04/2014 01/03/2015 dissolve 1 tablet by oral route 2 times a day as needed for 30 days srvikwnt-sylitfzvd-WM 3.5-10,000-1 mg/mL-unit/mL-% otic drops,suspension 201401/08/2015 instill 4 drops into affected ear(s) by otic route 3 times per day for 7 days rx completed Ambien CR 12.5 mg oral tablet,ext release multiphase 02/25/2015 03/27/2015 take 1 tablet (12.5 mg) by oral route once daily at bedtime for 30 days per patient this is gone permently Lasix 20 mg oral tablet 03/21/2015 06/19/2015 take 1 tablet (20 mg) by oral route once daily for 1-3 days at a time then reassess swelling, use PRN Levaquin 750 mg oral tablet 05/06/2015 05/13/2015 take 1 tablet (750 mg) by oral route once daily for 7 days clobetasol-emollient 0.05 % topical foam 05/08/2015 09/05/2015 apply by external route once daily naproxen 500 mg oral tablet 05/19/2015 08/17/2015 take 1 tablet by oral route 2 times a day for 30 days Zithromax Z-Simon 250 mg oral tablet 05/20/2015 05/25/2015 take 2 tablets ( 500 mg) by oral route once daily for 1 day then 1 tablet (250 mg) by oral route once daily for 4 days Vimovo 500-20 mg oral tablet,IR,delayed rel,biphasic 06/10/2015 10/08/2015 take 1 tablet by oral route 2 times per day 30 minutes before meals for 30 days baclofen 10 mg oral tablet 06/17/2015 07/17/2015 1 TABLET BY ORAL ROUTE BEFORE BED PRN MUSCLE SPASM promethazine 25 mg oral tablet 06/17/2015 07/17/2015 take 1 tablet by oral route 2 times a day as needed for 30 days Ventolin HFA 90 mcg/actuation inhalation HFA aerosol inhaler 07/04/20152015 inhale 1 puff (90 mcg) by inhalation route every 6 hours PRN azithromycin 250 mg oral tablet 11/03/2015 11/08/2015 take 2 tablets (500 mg) by oral route once daily for 1 day then 1 tablet (250 mg) by oral route once daily for 4 days Levaquin 750 mg oral tablet 11/24/2015 12/01/2015 take 1 tablet (750 mg) by oral route once daily for 7 days omeprazole 20 mg oral capsule,delayed release(DR/EC) 12/16/2015 04/14/2016 take 1 capsule (20 mg) by oral route once daily before a meal for 30 days metoclopramide HCl 5 mg oral tablet take 1 tab by oral route 4 times per day 30 minutes before meals and at bedtime Elocon 0.1 % topical cream 04/02/2016 09/29/2016 apply a thin layer to the affected area(s) by topical route once daily for 90 days Estrace 0.01 % (0.1 mg/gram) vaginal cream 04/02/2016 04/09/2016 insert 1 gram by vaginal route 3 times per week for 7 days Levaquin 750 mg oral tablet 04/26/2016 05/03/2016 take 1 tablet (750 mg) by oral route once daily for 7 days doxycycline hyclate 100 mg oral capsule 05/04/2016 05/09/2016 take 1 capsule (100 mg) by oral route 2 times per day for 5 days nicotine 21 mg/24 hr transdermal patch 24 hour 05/13/2016 05/27/2016 apply 1 patch (21 mg) by transdermal route once daily and remove at bedtime for 14 days Savella 50 mg oral tablet 06/04/2016 12/01/2016 take 1 tablet (50 mg) by oral route 2 times per day for 30 days azithromycin 250 mg oral tablet 06/07/2016 06/12/2016 take 2 tablets (500 mg) by oral route once daily for 1 day then 1 tablet (250 mg) by oral route once daily for 4 days omeprazole 20 mg oral capsule,delayed release(DR/EC) 07/05/2016 TAKE 1 CAPSULE (20 MG) BY ORAL ROUTE ONCE DAILY BEFORE A MEAL FOR 30 DAYS hydrocortisone-acetic acid 1-2 % otic drops 07/07/2016 07/17/2016 instill 2 drops into right ear by otic route 3 times per day. Ok for similiar substitution or individual components. iikflget-xtlmitaxl-ST 3.5-10,000-1 mg/mL-unit/mL-% otic drops,suspension 201607/23/2016 instill 4 drops into affected ear(s) by otic route 3 times per day for 7 days Jardiance 10 mg oral tablet take 1 tablet (10 mg) by oral route once daily in the morning Cipro 500 mg oral tablet 11/01/2016 11/08/2016 take 1 tablet (500 mg) by oral route every 12 hours for 7 days oxycodone 5 mg oral tablet 11/05/2016 11/15/2016 take 1 tablet every 6 hours as needed. doxycycline monohydrate 100 mg oral tablet 11/17/2016 11/24/2016 take 1 tablet (100 mg) by oral route every 12 hours for 7 days ProAir HFA 90 mcg/actuation inhalation HFA aerosol inhaler 11/22/2016 inhale 1 puff (90 mcg) by inhalation route every 6 hours as needed hydrocodone-acetaminophen 5-325 mg oral tablet 01/19/2017 01/28/2017 take 1 tablet by oral route BID x 9 days MS Contin 15 mg oral tablet extended release 02/02/2017 2017 take 1 tablet (15 mg) by oral route every 12 hours for 30 days gentamicin 0.3 % ophthalmic (eye) drops 02/25/2017 instill 1 drop into both eyes by ophthalmic route every 4 hours for 7 days Chantix Starting Month Box 0.5 mg (11)- 1 mg (42) oral tablets,dose pack 201605/30/2017 DIRECTED Macrobid 100 mg oral capsule 06/24/2017 take 1 capsule (100 mg) by oral route every 12 hours with food for 7 days triamcinolone acetonide 0.5 % topical ointment 06/28/2017 apply a thin layer to the affected area(s) by topical route 3 times per day for 90 days Savella 50 mg oral tablet 08/01/2017 11/29/2017 TAKE 1 TABLET BY MOUTH TWICE DAILY metoprolol succinate 100 mg oral tablet extended release 24 hr 08/23/201708/23 TAKE 1 TABLET BY MOUTH EVERY DAY nortriptyline 10 mg oral capsule 08/29/2017 08/29/2017 TAKE 1 CAPSULE BY ORAL ROUTE ONCE A DAY (AT BEDTIME) FOR 30 DAYS Myrbetriq 25 mg oral tablet extended release 24 hr 08/29/2017 08/29/2017 TAKE 1 TABLET (25 MG) BY ORAL ROUTE ONCE DAILY SWALLOWING WHOLE WITH WATER. DO NOT CRUSH, CHEW AND/OR DIVIDE. FOR 30 DAYS naproxen 250 mg oral tablet 09/12/2017 take 1 tablet (250 mg) by oral route 2 times per day with food atorvastatin 80 mg oral tablet 10/27/2017 04/25/2018 take 1 tablet (80 mg) by oral route once daily for 30 days baclofen 10 mg oral tablet 12/22/2017 01/21/2018 take 1 tablet by oral route once a day (at bedtime) for 30 days Aimovig Autoinjector 70 mg/mL subcutaneous auto-injector 03/30/2018 04/29/2018 inject 1 milliliter (70 mg) by subcutaneous route once a month in the abdomen , thigh, or outer area of upper arm for 30 days metaxalone 800 mg oral tablet 03/30/2018 04/06/2018 take 1 tablet by oral route 3 times a day for 7 days orphenadrine citrate 100 mg oral tablet extended release 04/07/20182017 take 1 tablet (100 mg) by oral route 2 times per day in the morning and evening for 7 days Discontinued Name Start Date Discontinued Date SIG Comments Elmiron 100 mg oral capsule 11/10/2009 take 1 capsule (100 mg) by oral route 3 times per day with water, 1 hour before or 2 hours after a meal Lyrica 150 mg oral capsule 11/17/2010 1 tab TID no longer taking chlorzoxazone 500 mg oral tablet 11/27/2012 take 1 tablet (500 mg) by oral route 3 times per day Imitrex 100 mg oral tablet 11/27/2012 take 1 tablet (100 mg) by oral route once with fluids as early as possible after the onset of a migraine attack;may repeat after 2 hours if headache returns, not to exceed 200mg in 24hrs pseudoephedrine HCl 60 mg oral tablet 11/10/2009 take 1 tablet (60 mg) by oral route every 6 hours as needed diphenhydramine HCl 50 mg oral capsule 12/02/2010 take 1 capsule (50 mg) by oral route every 6 hours as needed chlorpheniramine maleate 4 mg oral tablet 03/18/2010 take 1 tablet (4 mg) by oral route every 6 hours as needed meloxicam 15 mg oral tablet 11/17/2009 take 1 tablet (15 mg) by oral route once daily Pyridium 200 mg oral tablet 03/18/2010 take 1 tablet (200 mg) by oral route 3 times per day Bactrim DS Oral 160-800 mg Oral Tablet 11/06/2009 11/17/2009 Tylenol-Codeine #3 300-30 mg oral tablet 12/10/2009 12/10/2009 take 1 tablet by oral route every 4-6 hours as needed Pt. states that it doesn't work for her. Elmiron 100 mg oral capsule 03/18/2010 take 1 capsule (100 mg) by oral route 3 times per day with water, 1 hour before or 2 hours after a meal Motrin 800 mg oral tablet 12/16/2009 03/18/2010 take 1 tablet by oral route every 8 hours as needed Darvocet-N 50 50-325 mg oral tablet 12/16/2009 03/18/2010 take 1 tablet by oral route every 4-6 hours as needed for pain Proventil HFA 90 mcg/actuation inhalation HFA aerosol inhaler 01/29/20102009 inhale 2 puffs by inhalation route every 4-6 hours as needed for 21 days Diflucan 150 mg oral tablet 02/06/2010 02/06/2010 take 1 tablet (150 mg) by oral route once estradiol 0.1 mg/24 hr transdermal patch weekly 02/16/2010 06/18/2010 apply 1 patch by transdermal route once weekly for 30 days Progesterone/Triest/Testosterone 200 mg/1.25mg/0.75m 06/18/2010 11/17/2010 Apply 1ml to wrist daily stopped, cannot afford Cymbalta 03/02/2011 dose change Simvastatin 11/02/2011 Bactroban 2 % topical ointment 11/17/2010 08/18/2011 apply a small amount to the affected area by topical route 3 times per day Augmentin 875-125 mg oral tablet 11/17/2010 12/02/2010 take 1 tablet by oral route every 12 hours Tessalon 200 mg oral capsule 11/17/2010 11/24/2010 take 1 capsule (200 mg) by oral route 3 times per day as needed promethazine-codeine 6.25-10 mg/5 mL oral syrup 02/17/2011 03/02/2011 take 5 milliliters by oral route every 6 hours as needed, not to exceed 30 mL in 24 hours Chantix Starting Month Simon 0.5 mg (11)- 1 mg (42) oral tablets,dose pack 201111/02/2011 take as directed Vicodin 5-500 mg oral tablet 03/30/2012 Lyrica 150 mg oral capsule 10/05/2011 11/02/2011 take 1 capsule (150 mg) by oral route three times a day for 30 days Amitiza 8 mcg oral capsule 10/14/2011 11/02/2011 take 1 capsule (8 mcg) by oral route 2 times per day with food and water for 30 days Savella 12.5 mg oral tablet 01/11/2012 03/30/2012 take 1 tablets (12.5 mg) by oral route 2 times per day Ambien CR 12.5 mg oral tablet,ext release multiphase 03/13/2012 03/30/2012 TAKE 1 tablet (12.5 mg) by oral route at bedtime as needed for 30 days amitriptyline 25 mg oral tablet 04/11/2012 04/24/2012 take 2 tablet (50 mg) by oral route once daily at bedtime Dexilant 60 mg oral capsule,biphase delayed releas 04/11/2012 05/18/2013 take 1 capsule (60 mg) by oral route once daily Chantix Starting Month Box 0.5 mg (11)- 1 mg (42) oral tablets,dose pack 04/1106/06/2012 take as directed Cipro 500 mg oral tablet 04/18/2012 04/24/2012 take 1 tablet (500 mg) by oral route every 12 hours for 7 days Ambien 10 mg oral tablet 05/03/2012 take 1 tablet (10 mg) by oral route once daily at bedtime for 30 days Ambien CR 12.5 mg oral tablet,ext release multiphase 04/28/2012 05/03/2012 take 1 tablet (12.5 mg) by oral route once daily at bedtime ondansetron 4 mg oral tablet,disintegrating 04/28/2012 05/02/2012 dissolve 1 tablet by oral route QID PRN need prior auth will change medication Restoril 30 mg oral capsule 05/03/2012 06/06/2012 take 1 capsule (30 mg) by oral route once daily at bedtime as needed simvastatin 40 mg oral tablet 08/23/2013 take 1 tablet (40 mg) by oral route once daily in the evening changed to crestor Flonase 50 mcg/actuation nasal spray,suspension 06/20/2012 10/31/2012 inhale 1 spray (50 mcg) in each nostril by intranasal route once daily Restoril 15 mg oral capsule 06/28/2012 07/11/2012 take 1 capsule (15 mg) by oral route once daily at bedtime as needed Chantix Starting Month Box 0.5 mg (11)- 1 mg (42) oral tablets,dose pack 201210/31/2012 take as directed Ambien 10 mg oral tablet 07/11/2012 07/24/2012 take 1 tablet (10 mg) by oral route once daily at bedtime for 30 days cetirizine 10 mg oral tablet 07/28/2012 11/27/2012 take 1 tablet (10 mg) by oral route once daily Sudafed 12 Hour 120 mg oral tablet extended release 07/28/2012 10/31/2012 take 1 tablet (120 mg) by oral route every 12 hours phenazopyridine 200 mg oral tablet 10/03/2012 10/31/2012 take 1 tablet (200 mg) by oral route 3 times per day after meals Proventil HFA 90 mcg/actuation inhalation HFA aerosol inhaler 10/10/20122012 inhale 1 - 2 puffs by inhalation route every 6 hours as needed Geodon 80 mg oral capsule 01/22/2013 take 1 capsule (80 mg) by oral route 2 times per day with food naproxen 500 mg oral tablet,delayed release (DR/EC) 12/29/2012 05/18/2013 take 1 tablet by oral route 2 times a day Saphris 10 mg sublingual tablet, sublingual 03/28/2013 place 1 tablet (10 mg) under the tongue and allow to dissolve by sublingual route 2 times per day albuterol sulfate 2.5 mg /3 mL (0.083 %) inhalation solution for nebulization 01/25/2013 08/23/2013 inhale 3 milliliters (2.5 mg) by nebulization route 3 times per day Compazine 10mg 01/31/2013 08/23/2013 1 tab every 6 hours as needed amoxicillin 500 mg oral capsule 02/09/2013 02/19/2013 take 1 capsule by oral route 3 times a day for 5 days cyclobenzaprine 10 mg oral tablet 12/29/2012 08/23/2013 take 1 tablet (10 mg) by oral route 2 times per day as needed Zofran (as hydrochloride) 4 mg oral tablet 03/21/2013 05/18/2013 take 1 tablet by mouth q6 hours for nausea Latuda 40 mg oral tablet 09/22/2016 take 1 tablet (40 mg) by oral route once daily with food (at least 350 calories) mental health removed due to weight gain Lunesta 2 mg oral tablet 06/15/2012 05/18/2013 take 1 tablet (2 mg) by oral route daily baclofen oral 07/29/2014 promethazine-codeine 6.25-10 mg/5 mL oral syrup 05/18/2013 take 5 milliliters by oral route every 6 hours as needed, not to exceed 30 mL in 24 hours Mildred Perles 100 mg oral capsule 04/30/2013 05/18/2013 take 1 capsule ( 100 mg) by oral route 3 times per day Bactrim DS 800-160 mg oral tablet 05/18/2013 Augmentin 875-125 mg oral tablet 05/16/2013 05/18/2013 take 1 tablet by oral route every 12 hours for 7 days amoxicillin 500 mg oral capsule 07/12/2013 take 1 capsule (500 mg) by oral route every 12 hours Celebrex 200 mg oral capsule 05/18/2013 05/31/2013 take 1 capsule (200 mg) by oral route once daily as needed for 30 days insurance did not cover it Celebrex 200 mg oral capsule 07/10/2013 07/26/2013 take 1 capsule (200 mg) by oral route once daily for 30 days She is already on ibuprofen and vicoprofen by other providers doxycycline hyclate oral 08/23/2013 changed to diclofenac bid Tylenol-Codeine #3 300-30 mg oral tablet 07/18/2013 07/19/2013 take 1 tablet by oral route every 4 hours as needed ibuprofen 800 mg oral tablet 07/18/2013 10/02/2013 take 1 tablet by oral route 3 times a day as needed Vicoprofen 7.5-200 mg oral tablet 07/19/2013 10/02/2013 take 1 tablet by oral route every 6 hours as needed for pain not to exceed 5 tablets in 24hrs prednisone oral 08/23/2013 albuterol sulfate 90 mcg/actuation inhalation HFA aerosol inhaler 07/25/2013 inhale 1 - 2 puffs by inhalation route every 4 hours as needed Symbicort 80-4.5 mcg/actuation inhalation HFA aerosol inhaler 07/25/20132013 inhale 2 puffs by inhalation route 2 times per day in the morning and evening promethazine-codeine 6.25-10 mg/5 mL oral syrup 07/25/2013 09/14/2013 take 5 milliliters by oral route every 4-6 hours as needed, not to exceed 30 mL in 24 hours Crestor 40 mg oral tablet 10/02/2013 take 1 tablet (40 mg) by oral route once daily for 30 days diclofenac sodium oral 10/02/2013 Toprol XL oral 02/07/2014 naproxen 500 mg oral tablet 09/06/2013 10/02/2013 take 1 tablet by oral route 2 times a day for 30 days promethazine 25 mg oral tablet 09/17/2013 11/21/2013 Take 1 tab every 4-6 hours as needed Xanax 1 mg oral tablet 10/12/2013 12/05/2013 take 1 tablet daily at HS loratadine 10 mg oral tablet 10/23/2013 12/05/2013 take 1 tablet (10 mg) by oral route once daily as needed Medrol (Simon) 4 mg oral tablets,dose pack 10/23/2013 12/05/2013 take as directed Pyridium 200 mg oral tablet 10/29/2013 02/07/2014 TAKE 1 TABLET(S) BY MOUTH TID diclofenac sodium 75 mg oral tablet,delayed release (DR/EC) 11/02/20132013 take 1 tablet (75 mg) by oral route 2 times per day for 30 days amitriptyline 25 mg oral tablet 12/10/2013 02/07/2014 TAKE 1-2 TABLETS BY ORAL ROUTE ONCE DAILY AT BEDTIME PRN Zovirax 5 % topical cream 01/16/2014 03/17/2016 apply to the affected area(s ) by topical route 5 times per day Sudafed 12 Hour 120 mg oral tablet extended release 01/30/2014 02/07/2014 take 1 tablet (120 mg) by oral route every 12 hours Singulair 10 mg oral tablet 01/30/2014 07/01/2014 take 1 tablet (10 mg) by oral route once daily in the evening Levaquin 500 mg oral tablet 02/03/2014 02/07/2014 take 1 tablet by oral route once a day for 5 days Nexium 40 mg oral capsule,delayed release(DR/EC) 02/04/2014 05/27/2014 1 CAPSULE BY ORAL ROUTE 1 TIME PER DAY Elmiron 100 mg oral capsule 02/07/2014 06/25/2014 take 1 capsule (100 mg) by oral route 3 times per day with water, 1 hour before or 2 hours after a meal for 30 days States its not working Ambien CR 6.25 mg oral tablet,ext release multiphase 02/25/2014 03/01/2014 take 1 tablet (6.25 mg) by oral route once daily at bedtime for 30 days per kaylynn increase strenth lidocaine 5 % topical adhesive patch,medicated 03/15/2014 05/27/2014 apply 1 patch by transdermal route once daily (May wear up to 12hours.) for 30 days QNASL 80 mcg/actuation nasal HFA aerosol inhaler 07/29/2014 spray 2 sprays ( 160 mcg) in each nostril by intranasal route once daily Janumet 50-1,000 mg oral tablet 04/28/2014 06/25/2014 TAKE 1 TABLET BY MOUTH TWICE DAILY WITH MEALS Nicoderm CQ 14 mg/24 hr transdermal patch 24 hour 06/03/2014 07/29/2014 apply 1 patch (14 mg) by transdermal route once daily and remove at bedtime for 30 days Symbicort 160-4.5 mcg/actuation inhalation HFA aerosol inhaler 06/12/20142014 inhale 1 puff by inhalation route 2 times a day albuterol sulfate 2.5 mg /3 mL (0.083 %) inhalation solution for nebulization 06/12/2014 09/25/2014 inhale 3 milliliters (2.5 mg) by nebulization route 4 times per day Medrol (Simon) 4 mg oral tablets,dose pack 06/12/2014 07/01/2014 take as directed nicotine 21 mg/24 hr transdermal patch 24 hour 06/12/2014 07/29/2014 apply 1 patch (21 mg) by transdermal route once daily prednisone 20 mg oral tablet 07/02/2014 07/29/2014 take 60mg x2 days then 40mg x2 days then 20mg x4 days Breo Ellipta 100-25 mcg/dose inhalation blister with device 07/29/2014 inhale 1 puff by inhalation route once daily at the same time each day amitriptyline 25 mg oral tablet 07/01/2014 09/25/2014 take 1 tablet (25 mg) by oral route once daily at bedtime for 30 days multivitamin oral capsule 07/02/2014 11/16/2017 TAKE 1 CAPSULE BY ORAL ROUTE DAILY FOR 30 DAYS meloxicam 7.5 mg oral tablet 07/02/2014 10/09/2014 TAKE 1-2 TABLETS BY ORAL ROUTE QD PRN FOR BACK PAIN Zithromax Z-Simon 250 mg oral tablet 07/29/2014 Symbicort 160-4.5 mcg/actuation inhalation HFA aerosol inhaler 07/17/201409/12 inhale 1 puff by inhalation route 2 times per day in the morning and evening Sudafed 12 Hour 120 mg oral tablet extended release 07/17/2014 03/21/2015 take 1 tablet (120 mg) by oral route every 12 hours Flonase 50 mcg/actuation nasal spray,suspension 01/08/2015 inhale 1 spray ( 50 mcg) in each nostril by intranasal route once daily azelastine 0.15 % (205.5 mcg) nasal spray,non-aerosol 01/08/2015 spray 2 sprays (411 mcg) in each nostril by intranasal route 2 times per day WelChol 3.75 gram oral powder in packet 07/29/2014 09/12/2014 take 1 packet ( 3.75 gram) dissolved in 120 to 240ml of water; stir and drink by oral route once daily with a meal for 30 days ondansetron 4 mg oral tablet,disintegrating 08/28/2014 09/04/2014 take one tab every 4 hours as needed for nausea Invokana 100 mg oral tablet 10/18/2014 take 1 tablet (100 mg) by oral route once daily before the first meal of the day Calcium 500 + D 500 mg(1,250mg) -200 unit oral tablet 01/16/2016 take 1 tablet by oral route daily magnesium oxide 400 mg oral capsule 10/18/2014 take 1 capsule by oral route daily Advair Diskus 100-50 mcg/dose inhalation blister with device 09/25/2014 inhale 1 puff by inhalation route 2 times per day in the morning and evening approximately 12 hours apart for 30 days Cholestyramine Light 4 gram oral powder 09/25/2014 take 1 scoop (4 gram) dissolved in 2 to 6 ounces of water or noncarbonated beverage by oral route 1 times per day metformin 500 mg oral tablet 10/18/2014 take 4 tablets by oral route Dooley's Yeast 500 mg (7.5 gr) oral tablet 10/09/2014 take 2 tablets by oral route daily Cipro 250 mg oral tablet 12/13/2014 take 1 tablet by oral route BID x 2 weeks. Startes on 10-13-14 Spiriva with HandiHaler 18 mcg inhalation capsule, w/inhalation device 07/15 inhale 1 capsule (18 mcg) by inhalation route once daily carbamazepine 200 mg oral tablet extended release 12 hr 10/18/2014 12/13/2014 take 1 tablet (200 mg) by oral route every 12 hours for 30 days Pt. reports not having the seizures Invokana 100 mg oral tablet 04/13/2016 take 1 tablet (100 mg) by oral route once daily before the first meal of the day Zyrtec 10 mg oral tablet 03/17/2016 take 1 tablet (10 mg) by oral route once daily Symbicort 160-4.5 mcg/actuation inhalation HFA aerosol inhaler 07/15/2015 inhale 2 puffs by inhalation route 2 times per day in the morning and evening Prolia 60 mg/mL subcutaneous syringe 07/04/2015 inject 1 milliliter (60 mg) by subcutaneous route every 6 months in the upper arm, upper thigh or abdomen switched to forteo simvastatin 20 mg oral tablet 03/17/2016 take 1 tablet (20 mg) by oral route once daily in the evening promethazine 50 mg oral tablet 04/29/2015 07/15/2015 take 1 tablet (50 mg) by oral route once daily at bedtime promethazine-DM 6.25-15 mg/5 mL oral syrup 05/06/2015 05/20/2015 take 5 milliliters by oral route every 4 hours as needed promethazine-codeine 6.25-10 mg/5 mL oral syrup 05/20/2015 06/06/2015 take 5 milliliters by oral route every 4-6 hours as needed, not to exceed 30 mL in 24 hours oxycodone 5 mg oral tablet 06/02/2015 06/06/2015 take 1 tablet by oral route every 12 hours for 30 days Grastek 2,800 BAU sublingual tablet, sublingual 06/06/2015 01/16/2016 place 1 tablet under tongue by translingual route daily QNASL 80 mcg/actuation nasal HFA aerosol inhaler 06/06/2015 07/15/2015 spray 2 sprays (160 mcg) in each nostril by intranasal route once daily Forteo 20 mcg/dose - 600 mcg/2.4 mL subcutaneous pen injector 01/16/2016 inject 0.08 milliliter (20 mcg) by subcutaneous route once daily into the thigh or abdominal wall Nasonex 50 mcg/actuation nasal spray,non-aerosol 07/15/2015 09/22/2016 spray 2 sprays in each nostril by intranasal route once daily Sudafed 12 Hour 120 mg oral tablet extended release 07/15/2015 07/30/2015 take 1 tablet (120 mg) by oral route every 12 hours Vimovo 500-20 mg oral tablet,IR,delayed rel,biphasic 09/01/2015 01/16/2016 take 1 tablet by oral route 2 times per day 30 minutes before meals for 30 days Patanol 0.1 % ophthalmic drops 10/20/2015 09/22/2016 instill 1 drop into affected eye(s) by ophthalmic route 2 times per day at an interval of 6 to 8 hours metronidazole 250 mg oral tablet 09/22/2016 take 1 tablet (250 mg) by oral route 4 times per day clobetasol-emollient 0.05 % topical foam 02/09/2016 04/02/2016 APPLY BY EXTERNAL ROUTE ONCE DAILY Pt. reports this is not working. metformin oral 09/22/2016 cyclobenzaprine 10 mg oral tablet 04/26/2016 08/26/2016 take 1 tablet by oral route once a day (at bedtime) Zyrtec-D 5-120 mg oral tablet extended release 12 hr 06/18/2016 08/26/2016 take 1 tablet by oral route every 12 hours duplicate hydrocodone-acetaminophen 10-325 mg oral tablet 08/26/2016 08/26/2016 take 1 tablet by oral route every 6 hours for 30 days May fill 08/02/16 oxycodone 10 mg oral tablet 08/26/2016 09/22/2016 take 1 tablet (10 mg) by oral route every 6 hours for 30 days Geodon 60 mg oral capsule 03/30/2018 take 1 capsule (60 mg) by oral route once daily with food albuterol sulfate 2.5 mg /3 mL (0.083 %) inhalation solution for nebulization 11/17/2016 11/22/2016 inhale 3 milliliters (2.5 mg) by nebulization route 4 times per day prednisone 20 mg oral tablet 11/17/2016 01/03/2017 take 2 tablets x2 days then 1 tablet daily x4 Lasix 20 mg oral tablet 11/29/2016 04/20/2017 TAKE 1 TABLET (20 MG) BY ORAL ROUTE ONCE DAILY FOR 1-3 DAYS AT A TIME THEN REASSESS SWELLING, USE PRN Diflucan 150 mg oral tablet 06/24/2017 06/28/2017 take 1 tablet (150 mg) by oral route once for 1 day mometasone 0.1 % topical cream 06/28/2017 06/28/2017 apply a thin layer to the affected area(s) by topical route once daily changed phenazopyridine 100 mg oral tablet 01/24/2018 take 1 tablet (100 mg) by oral route 3 times per day after meals 4 days of the week oxycodone 10 mg oral tablet 01/24/2018 take 1 tablet (10 mg) by oral route every 3 hours Ambien CR 12.5 mg oral tablet,ext release multiphase 03/30/2018 take 1 tablet (12.5 mg) by oral route once daily at bedtime Problem List Description Status Onset Anemia Active Bipolar disorder, unspecified Active Anxiety Active Digestive Active Fibromyalgia Active Gastroesophageal Reflux Active Headache Active Insomnia, Active interstial cysitis Active Irritable bowel syndrome Active Migraine Active Pelvic Inflammatory Disease Active Seasonal Allergies Active Thoracic Spine Pain Active Obstructive Sleep Apnea Active 08/10/2013 Hyperlipidemia Active 12/07/2013 Elevated liver enzymes Active 12/07/2013 Menopausal Syndrome Active 12/07/2013 Fatty liver disease, nonalcoholic Active 01/08/2014 Osteoporosis Active Vaginal lesion Active 02/13/2014 Allergic rhinitis, unspecified allergic rhinitis type Active 06/09/2015 Vital Signs Date Time BP-Sys(mm[Hg] BP-Ilsha(mm[Hg]) HR(bpm) RR(rpm) Temp WT HT HC BMI BSA BMI Percentile O2 Sat(%) 05/02/2018 11:35:00 AM 126 mmHg 70 mmHg 97 bpm 97.9 F 171.187 lbs 63 in 30.3242 kg/m 1.8578 m 98 % 03/30/2018 4:30:00 PM 132 mmHg 70 mmHg 98 bpm 97.6 F 166.5 lbs 63 in 29.49 kg/m2 1.83 m2 98 % 01/24/2018 11:25:00 AM 108 mmHg 72 mmHg 92 bpm 18 rpm 99 F 168 lbs 63 in 29.7596 kg/m 1.8405 m 97 % 12/16/2017 10:42:00 AM 120 mmHg 78 mmHg 69 bpm 18 rpm 98.1 F 169.375 lbs 63 in 30.00 kg/m2 1.85 m2 94 % 11/16/2017 10:12:00 AM 120 mmHg 60 mmHg 99 bpm 98.1 F 166 lbs 63 in 29.4053 kg/m 1.8295 m 97 % 11/02/2017 1:47:00 PM 130 mmHg 80 mmHg 87 bpm 16 rpm 97.7 F 161 lbs 63 in 28.52 kg/m2 1.80 m2 98 % 10/27/2017 10:04:00 AM 112 mmHg 70 mmHg 94 bpm 18 rpm 98.1 F 164.375 lbs 63 in 29.1174 kg/m 1.8205 m 97 % 09/14/2017 2:45:00 PM 118 mmHg 80 mmHg 84 bpm 16 rpm 98.6 F 169.125 lbs 63 in 29.96 kg/m2 1.85 m2 93 % 09/06/2017 10:48:00 AM 102 mmHg 64 mmHg 102 bpm 18 rpm 98.1 F 63 in 94 % 08/15/2017 2:14:00 PM 126 mmHg 82 mmHg 101 bpm 18 rpm 97.1 F 166.375 lbs 63 in 29.4717 kg/m 1.8315 m 95 % 07/18/2017 3:02:00 PM 134 mmHg 80 mmHg 105 bpm 16 rpm 98.4 F 164.25 lbs 63 in 29.10 kg/m2 1.82 m2 97 % 06/28/2017 10:42:00 AM 123 mmHg 85 mmHg 92 bpm 98.2 F 159 lbs 63 in 28.1653 kg/m 1.7905 m 06/24/2017 10:30:00 AM 124 mmHg 84 mmHg 100 bpm 18 rpm 96.5 F 163.25 lbs 63 in 28.92 kg/m2 1.81 m2 100 % 06/02/2017 4:02:00 PM 132 mmHg 82 mmHg 93 bpm 16 rpm 98.2 F 164 lbs 63 in 29.051 kg/m 1.8184 m 100 % 04/20/2017 2:09:00 PM 118 mmHg 78 mmHg 94 bpm 18 rpm 98.5 F 164.25 lbs 63 in 29.10 kg/m2 1.82 m2 98 % 03/22/2017 10:12:00 AM 110 mmHg 78 mmHg 106 bpm 16 rpm 98.4 F 162.5 lbs 63 in 28.7853 kg/m 1.8101 m 96 % 03/05/2017 9:12:00 AM 132 mmHg 64 mmHg 91 bpm 18 rpm 96.9 F 159.375 lbs 63 in 28.23 kg/m2 1.79 m2 100 % 02/23/2017 5:33:00 PM 128 mmHg 73 mmHg 89 bpm 18 rpm 98.6 F 164 lbs 63 in 29.051 kg/m 1.8184 m 99 % 02/21/2017 3:21:00 PM 126 mmHg 74 mmHg 85 bpm 16 rpm 98.3 F 160.375 lbs 63 in 28.41 kg/m2 1.80 m2 99 % 02/15/2017 2:03:00 PM 128 mmHg 84 mmHg 98 bpm 16 rpm 97.5 F 65 in 99 % 02/02/2017 10:43:00 AM 126 mmHg 86 mmHg 97 bpm 18 rpm 98.3 F 154.375 lbs 63 in 27.346 kg/m 1.7642 m 96 % 01/03/2017 2:07:00 PM 112 mmHg 72 mmHg 93 bpm 16 rpm 98.6 F 155 lbs 63 in 27.46 kg/m2 1.77 m2 97 % 12/15/2016 10:45:00 AM 126 mmHg 78 mmHg 94 bpm 16 rpm 97.8 F 97 % 12/02/2016 2:07:00 PM 130 mmHg 80 mmHg 95 bpm 16 rpm 99.3 F 151.25 lbs 63 in 26.7925 kg/m 1.7463 m 99 % 11/23/2016 10:04:00 AM 118 mmHg 76 mmHg 98 bpm 18 rpm 97.6 F 99 % 11/17/2016 10:33:00 AM 132 mmHg 72 mmHg 99 bpm 18 rpm 98.6 F 63 in 98 % 11/02/2016 10:28:00 AM 118 mmHg 80 mmHg 96 bpm 18 rpm 98 F 158 lbs 63 in 27.9882 kg/m 1.7848 m 98 % 10/06/2016 11:43:00 AM 122 mmHg 75 mmHg 79 bpm 18 rpm 97.3 F 63 in 99 % 09/22/2016 9:59:00 AM 114 mmHg 70 mmHg 88 bpm 16 rpm 98.1 F 158.25 lbs 63 in 28.0324 kg/m 1.7862 m 95 % 09/09/2016 8:50:00 AM 130 mmHg 74 mmHg 83 bpm 18 rpm 97.3 F 155.125 lbs 63 in 27.48 kg/m2 1.77 m2 97 % 08/26/2016 3:05:00 PM 124 mmHg 80 mmHg 91 bpm 16 rpm 99.1 F 155 lbs 63 in 27.4567 kg/m 1.7678 m 98 % 07/09/2016 3:23:00 PM 122 mmHg 76 mmHg 79 bpm 18 rpm 98.1 F 95 % 07/06/2016 10:45:00 AM 118 mmHg 76 mmHg 88 bpm 16 rpm 98.8 F 157.125 lbs 63 in 27.8332 kg/m 1.7799 m 97 % 06/18/2016 8:47:00 AM 124 mmHg 70 mmHg 93 bpm 18 rpm 97.2 F 154 lbs 63 in 27.28 kg/m2 1.76 m2 98 % 06/07/2016 10:37:00 AM 86 bpm 16 rpm 98 F 154 lbs 63 in 27.2796 kg/m 1.7621 m 97 % 06/04/2016 11:01:00 AM 120 mmHg 74 mmHg 87 bpm 16 rpm 98.6 F 154.5 lbs 63 in 27.37 kg/m2 1.76 m2 98 % 05/13/2016 3:09:00 PM 104 mmHg 68 mmHg 92 bpm 16 rpm 98 F 153 lbs 63 in 27.1025 kg/m 1.7564 m 94 % 05/03/2016 3:38:00 PM 120 mmHg 80 mmHg 99 bpm 16 rpm 99.4 F 152.25 lbs 63 in 26.97 kg/m2 1.75 m2 97 % 04/26/2016 10:23:00 AM 132 mmHg 76 mmHg 101 bpm 18 rpm 97.6 F 154.125 lbs 63 in 27.3017 kg/m 1.7628 m 98 % 04/14/2016 1:35:00 PM 128 mmHg 68 mmHg 76 bpm 18 rpm 98.3 F 156 lbs 63 in 27.63 kg/m2 1.77 m2 98 % 04/13/2016 9:40:00 AM 114 mmHg 68 mmHg 78 bpm 18 rpm 97.6 F 156.8 lbs 63 in 27.7756 kg/m 1.778 m 94 % 04/02/2016 11:09:00 AM 121 mmHg 68 mmHg 63 bpm 97.8 F 150 lbs 63 in 26.57 kg/m2 1.74 m2 04/02/2016 10:05:00 AM 110 mmHg 70 mmHg 80 bpm 16 rpm 99.3 F 150.375 lbs 63 in 26.6375 kg/m 1.7412 m 100 % 03/26/2016 5:23:00 PM 134 mmHg 72 mmHg 99 bpm 18 rpm 97.2 F 94 % 03/17/2016 10:46:00 AM 118 mmHg 80 mmHg 79 bpm 16 rpm 98.9 F 152.5 lbs 63 in 27.0139 kg/m 1.7535 m 96 % 03/05/2016 10:47:00 AM 91 bpm 18 rpm 99.1 F 152.2 lbs 63 in 26.96 kg/m2 1.75 m2 97 % 02/16/2016 2:34:00 PM 108 mmHg 64 mmHg 93 bpm 16 rpm 100.8 F 155.5 lbs 63 in 27.5453 kg/m 1.7707 m 95 % 02/14/2016 11:32:00 AM 79 bpm 18 rpm 98.2 F 152 lbs 63 in 26.93 kg/m2 1.75 m2 97 % 01/16/2016 10:53:00 AM 120 mmHg 80 mmHg 80 bpm 18 rpm 99 F 151.5 lbs 63 in 26.8367 kg/m 1.7477 m 98 % 12/16/2015 11:41:00 AM 130 mmHg 80 mmHg 101 bpm 18 rpm 98 F 150.25 lbs 63 in 26.62 kg/m2 1.74 m2 97 % 11/24/2015 11:26:00 AM 124 mmHg 66 mmHg 86 bpm 18 rpm 97.8 F 155 lbs 63 in 27.4567 kg/m 1.7678 m 97 % 11/18/2015 1:37:00 PM 122 mmHg 74 mmHg 86 bpm 16 rpm 98.3 F 156.375 lbs 63 in 27.70 kg/m2 1.78 m2 97 % 11/03/2015 9:27:00 AM 118 mmHg 80 mmHg 88 bpm 18 rpm 98.2 F 98 % 10/20/2015 2:08:00 PM 128 mmHg 72 mmHg 81 bpm 18 rpm 97.4 F 156.187 lbs 63 in 27.67 kg/m2 1.77 m2 98 % 09/23/2015 2:36:00 PM 110 mmHg 70 mmHg 82 bpm 18 rpm 97.4 F 156 lbs 63 in 27.6339 kg/m 1.7735 m 99 % 09/16/2015 10:49:00 AM 128 mmHg 74 mmHg 74 bpm 18 rpm 96.6 F 156 lbs 63 in 27.63 kg/m2 1.77 m2 95 % 09/02/2015 2:12:00 PM 118 mmHg 64 mmHg 83 bpm 18 rpm 96.1 F 160 lbs 63 in 28.3424 kg/m 1.7961 m 96 % 09/01/2015 10:50:00 AM 108 mmHg 72 mmHg 96 bpm 19 rpm 97.4 F 160 lbs 63 in 28.34 kg/m2 1.80 m2 98 % 07/30/2015 2:32:00 PM 126 mmHg 72 mmHg 80 bpm 98.7 F 163.25 lbs 63 in 28.9181 kg/m 1.8142 m 97 % 07/15/2015 8:58:00 AM 126 mmHg 68 mmHg 100 bpm 18 rpm 96.9 F 160 lbs 63 in 28.34 kg/m2 1.80 m2 97 % 07/04/2015 11:09:00 AM 120 mmHg 84 mmHg 87 bpm 98.5 F 164.375 lbs 63 in 29.1174 kg/m 1.8205 m 97 % 06/06/2015 10:02:00 AM 110 mmHg 70 mmHg 86 bpm 97.9 F 163 lbs 63 in 28.87 kg/m2 1.81 m2 98 % 06/06/2015 9:12:00 AM 132 mmHg 64 mmHg 90 bpm 18 rpm 96.5 F 163.25 lbs 100 % 06/02/2015 3:06:00 PM 124 mmHg 64 mmHg 79 bpm 18 rpm 97 F 160.125 lbs 97 % 05/26/2015 10:18:00 AM 102 mmHg 56 mmHg 84 bpm 18 rpm 97.8 F 96 % 05/20/2015 1:34:00 PM 124 mmHg 68 mmHg 89 bpm 18 rpm 96.8 F 160 lbs 63 in 28.3424 kg/m 1.7961 m 96 % 05/08/2015 4:11:00 PM 118 mmHg 74 mmHg 83 bpm 98.6 F 160.375 lbs 63 in 28.41 kg/m2 1.80 m2 96 % 05/06/2015 11:20:00 AM 124 mmHg 72 mmHg 72 bpm 18 rpm 96.9 F 161.5 lbs 63 in 28.6081 kg/m 1.8045 m 98 % 04/29/2015 3:07:00 PM 126 mmHg 72 mmHg 90 bpm 18 rpm 97.6 F 161.125 lbs 63 in 28.54 kg/m2 1.80 m2 97 % 03/27/2015 1:22:00 PM 106 mmHg 68 mmHg 110 bpm 97.4 F 164 lbs 63 in 29.051 kg/m 1.8184 m 97 % 03/21/2015 11:11:00 AM 110 mmHg 64 mmHg 94 bpm 98.6 F 162.125 lbs 63 in 28.72 kg/m2 1.81 m2 98 % 03/12/2015 11:37:00 AM 126 mmHg 64 mmHg 81 bpm 18 rpm 97.7 F 158 lbs 63 in 27.9882 kg/m 1.7848 m 99 % 02/26/2015 11:23:00 AM 114 mmHg 80 mmHg 97 bpm 20 rpm 98.2 F 160 lbs 96 % 02/13/2015 3:33:00 PM 120 mmHg 72 mmHg 91 bpm 98.7 F 159.125 lbs 63 in 28.1874 kg/m 1.7912 m 97 % 01/15/2015 10:55:00 AM 86 bpm 20 rpm 96.8 F 157.6 lbs 96 % 01/13/2015 4:28:00 PM 110 mmHg 70 mmHg 94 bpm 98.2 F 156.375 lbs 63 in 27.7003 kg/m 1.7756 m 99 % 01/08/2015 3:14:00 PM 114 mmHg 77 mmHg 77 bpm 97.2 F 158.125 lbs 63 in 28.01 kg/m2 1.79 m2 01/01/2015 2:18:00 PM 125 mmHg 70 mmHg 103 bpm 20 rpm 97.8 F 187 lbs 63 in 33.1252 kg/m 1.9417 m 98 % 12/13/2014 11:03:00 AM 112 mmHg 70 mmHg 86 bpm 97.7 F 156.25 lbs 63 in 27.68 kg/m2 1.77 m2 97 % 11/27/2014 9:57:00 AM 110 mmHg 80 mmHg 97 bpm 16 rpm 98.3 F 156 lbs 63 in 27.6339 kg/m 1.7735 m 96 % 11/14/2014 3:57:00 PM 112 mmHg 72 mmHg 90 bpm 99 F 156.5 lbs 63 in 27.72 kg/m2 1.78 m2 96 % 10/18/2014 11:46:00 AM 120 mmHg 62 mmHg 100 bpm 16 rpm 97.5 F 157 lbs 93 % 10/09/2014 1:38:00 PM 122 mmHg 76 mmHg 89 bpm 98.2 F 157.125 lbs 63 in 27.8332 kg/m 1.7799 m 98 % 09/25/2014 2:42:00 PM 110 mmHg 78 mmHg 102 bpm 98.7 F 158.5 lbs 63 in 28.08 kg/m2 1.79 m2 95 % 09/17/2014 11:09:00 AM 122 mmHg 66 mmHg 100 bpm 18 rpm 97.8 F 156.125 lbs 63 in 27.656 kg/m 1.7742 m 98 % 09/04/2014 2:06:00 PM 120 mmHg 70 mmHg 105 bpm 97.4 F 157.5 lbs 63 in 27.90 kg/m2 1.78 m2 96 % 08/28/2014 3:02:00 PM 128 mmHg 66 mmHg 104 bpm 18 rpm 98.1 F 158.125 lbs 63 in 28.0103 kg/m 1.7855 m 98 % 08/01/2014 3:24:00 PM 132 mmHg 66 mmHg 86 bpm 18 rpm 98.7 F 161 lbs 63 in 28.52 kg/m2 1.80 m2 98 % 07/29/2014 3:37:00 PM 126 mmHg 78 mmHg 90 bpm 97.8 F 165.25 lbs 63 in 29.2724 kg/m 1.8253 m 93 % 07/25/2014 2:03:00 PM 108 mmHg 76 mmHg 99 bpm 99 F 163.375 lbs 63 in 28.94 kg/m2 1.81 m2 95 % 07/17/2014 10:02:00 AM 132 mmHg 66 mmHg 100 bpm 18 rpm 97.9 F 167.125 lbs 63 in 29.6046 kg/m 1.8357 m 100 % 07/11/2014 4:07:00 PM 135 mmHg 85 mmHg 124 bpm 18 rpm 98.3 F 164.375 lbs 63 in 29.12 kg/m2 1.82 m2 100 % 07/01/2014 3:45:00 PM 126 mmHg 70 mmHg 91 bpm 97.6 F 167.125 lbs 63 in 29.6046 kg/m 1.8357 m 98 % 06/25/2014 11:04:00 AM 120 mmHg 70 mmHg 100 bpm 20 rpm 97 F 157.125 lbs 63 in 27.83 kg/m2 1.78 m2 97 % 06/12/2014 10:49:00 AM 110 mmHg 80 mmHg 120 bpm 20 rpm 97.6 F 160.25 lbs 63 in 28.3867 kg/m 1.7975 m 99 % 06/06/2014 10:57:00 AM 100 mmHg 68 mmHg 112 bpm 18 rpm 97.6 F 156 lbs 63 in 27.63 kg/m2 1.77 m2 98 % 05/27/2014 2:18:00 PM 118 mmHg 72 mmHg 107 bpm 20 rpm 97 F 157 lbs 63 in 27.811 kg/m 1.7792 m 100 % 04/20/2014 9:42:00 AM 132 mmHg 72 mmHg 114 bpm 18 rpm 97.4 F 165 lbs 63 in 29.23 kg/m2 1.82 m2 97 % 03/29/2014 5:23:00 PM 122 mmHg 72 mmHg 74 bpm 20 rpm 97.8 F 158 lbs 63 in 27.9882 kg/m 1.7848 m 03/15/2014 10:29:00 AM 116 mmHg 60 mmHg 120 bpm 18 rpm 98 F 156 lbs 63 in 27.63 kg/m2 1.77 m2 2014 3:17:00 PM 102 mmHg 60 mmHg 95 bpm 18 rpm 96.8 F 158 lbs 63 in 27.9882 kg/m 1.7848 m 95 % 02/13/2014 1:48:00 PM 106 mmHg 66 mmHg 86 bpm 97.4 F 159 lbs 63 in 28.17 kg/m2 1.79 m2 02/07/2014 3:06:00 PM 118 mmHg 68 mmHg 107 bpm 18 rpm 96.5 F 157 lbs 63 in 27.811 kg/m 1.7792 m 93 % 02/03/2014 2:15:00 PM 92 mmHg 58 mmHg 104 bpm 18 rpm 97.3 F 153.187 lbs 64 in 26.29 kg/m2 1.77 m2 93 % 01/30/2014 1:56:00 PM 124 mmHg 62 mmHg 90 bpm 18 rpm 97.8 F 157.25 lbs 63 in 27.8553 kg/m 1.7806 m 95 % 01/24/2014 5:04:00 PM 94 mmHg 62 mmHg 86 bpm 18 rpm 98.2 F 164.125 lbs 63 in 29.07 kg/m2 1.82 m2 93 % 01/16/2014 2:27:00 PM 126 mmHg 74 mmHg 100 bpm 18 rpm 161 lbs 64 in 27.6353 kg/m 1.8159 m 99 % 01/08/2014 2:23:00 PM 132 mmHg 66 mmHg 102 bpm 18 rpm 97.8 F 157 lbs 64 in 26.95 kg/m2 1.79 m2 98 % 12/05/2013 9:42:00 AM 134 mmHg 66 mmHg 97 bpm 18 rpm 97.6 F 161.25 lbs 64 in 27.6782 kg/m 1.8174 m 99 % 11/21/2013 3:06:00 PM 126 mmHg 66 mmHg 112 bpm 18 rpm 98.1 F 167 lbs 64 in 28.67 kg/m2 1.85 m2 98 % 10/23/2013 2:20:00 PM 117 mmHg 65 mmHg 99 bpm 20 rpm 97.8 F 176 lbs 64 in 30.21 kg/m 1.8987 m 96 % 10/12/2013 9:34:00 AM 122 mmHg 66 mmHg 111 bpm 18 rpm 97.7 F 177.125 lbs 94 % 10/02/2013 4:04:00 PM 130 mmHg 80 mmHg 105 bpm 18 rpm 98.1 F 177 lbs 64 in 30.3817 kg/m 1.904 m 97 % 09/14/2013 10:08:00 AM 123 mmHg 66 mmHg 102 bpm 18 rpm 97.8 F 64 in 97 % 09/05/2013 7:27:00 PM 140 mmHg 74 mmHg 114 bpm 18 rpm 98.4 F 97 % 08/31/2013 10:11:00 AM 132 mmHg 74 mmHg 97 bpm 18 rpm 96.3 F 180.125 lbs 64 in 30.9181 kg/m 1.9208 m 98 % 08/23/2013 1:45:00 PM 106 mmHg 70 mmHg 103 bpm 20 rpm 97.5 F 182 lbs 64 in 31.24 kg/m2 1.93 m2 98 % 08/10/2013 11:06:00 AM 132 mmHg 68 mmHg 114 bpm 18 rpm 98.1 F 164.5 lbs 64 in 28.2361 kg/m 1.8356 m 95 % 07/25/2013 4:01:00 PM 122 mmHg 64 mmHg 97 bpm 18 rpm 97.1 F 181 lbs 64 in 31.07 kg/m2 1.93 m2 98 % 07/18/2013 3:52:00 PM 134 mmHg 78 mmHg 122 bpm 24 rpm 98.6 F 184.5 lbs 64 in 31.669 kg/m 1.944 m 96 % 07/12/2013 3:49:00 PM 128 mmHg 68 mmHg 112 bpm 18 rpm 97.9 F 183.437 lbs 64 in 31.49 kg/m2 1.94 m2 97 % 05/18/2013 8:36:00 AM 132 mmHg 78 mmHg 78 bpm 22 rpm 97.4 F 188 lbs 64 in 32.2698 kg/m 1.9623 m 05/16/2013 1:49:00 PM 132 mmHg 64 mmHg 93 bpm 18 rpm 98.3 F 189.125 lbs 64 in 32.46 kg/m2 1.97 m2 97 % 05/09/2013 2:56:00 PM 136 mmHg 72 mmHg 111 bpm 18 rpm 98.5 F 186 lbs 64 in 31.9265 kg/m 1.9518 m 100 % 04/17/2013 11:34:00 AM 126 mmHg 78 mmHg 104 bpm 18 rpm 98.2 F 188.375 lbs 64 in 32.33 kg/m2 1.96 m2 96 % 04/03/2013 2:24:00 PM 120 mmHg 80 mmHg 89 bpm 16 rpm 97.3 F 189 lbs 64 in 32.4414 kg/m 1.9675 m 03/28/2013 7:31:00 PM 136 mmHg 68 mmHg 98 bpm 18 rpm 98.2 F 188 lbs 64 in 32.27 kg/m2 1.96 m2 97 % 03/21/2013 1:58:00 PM 136 mmHg 74 mmHg 86 bpm 18 rpm 98.7 F 188.25 lbs 64 in 32.3127 kg/m 1.9636 m 03/20/2013 1:41:00 PM 132 mmHg 84 mmHg 98 bpm 20 rpm 97.4 F 189 lbs 64 in 32.44 kg/m2 1.97 m2 02/19/2013 2:40:00 PM 112 mmHg 82 mmHg 104 bpm 96 % 02/19/2013 1:45:00 PM 122 mmHg 80 mmHg 111 bpm 18 rpm 98.2 F 188.375 lbs 96 % 02/09/2013 10:19:00 AM 118 mmHg 70 mmHg 105 bpm 20 rpm 97.4 F 190 lbs 64 in 32.6131 kg/m 1.9727 m 95 % 01/25/2013 10:59:00 AM 132 mmHg 72 mmHg 99 bpm 18 rpm 97.8 F 189.5 lbs 64 in 32.53 kg/m2 1.97 m2 98 % 01/22/2013 2:47:00 PM 133 mmHg 89 mmHg 107 bpm 98.2 F 186.25 lbs 64 in 31.9694 kg/m 1.9532 m 12/29/2012 10:06:00 AM 136 mmHg 68 mmHg 104 bpm 18 rpm 98.3 F 187.125 lbs 64 in 32.12 kg/m2 1.96 m2 99 % 11/27/2012 1:17:00 PM 122 mmHg 62 mmHg 108 bpm 18 rpm 98.6 F 189.25 lbs 64 in 32.4844 kg/m 1.9688 m 96 % 11/08/2012 3:13:00 PM 132 mmHg 90 mmHg 88 bpm 16 rpm 96.8 F 194 lbs 64 in 33.30 kg/m2 1.99 m2 11/07/2012 1:50:00 PM 138 mmHg 74 mmHg 98 bpm 18 rpm 98.9 F 194.125 lbs 64 in 33.3211 kg/m 1.994 m 10/31/2012 1:39:00 PM 142 mmHg 90 mmHg 76 bpm 18 rpm 97.8 F 196.125 lbs 64 in 33.66 kg/m2 2.00 m2 10/19/2012 3:47:00 PM 150 mmHg 90 mmHg 88 bpm 14 rpm 98.2 F 191 lbs 64 in 32.7847 kg/m 1.9779 m 10/10/2012 10:45:00 AM 130 mmHg 74 mmHg 100 bpm 18 rpm 98.9 F 191.5 lbs 64 in 32.87 kg/m2 1.98 m2 98 % 10/03/2012 10:46:00 AM 138 mmHg 78 mmHg 68 bpm 18 rpm 98.7 F 194.25 lbs 64 in 33.3426 kg/m 1.9947 m 09/26/2012 3:28:00 PM 134 mmHg 68 mmHg 72 bpm 18 rpm 98.4 F 193.375 lbs 64 in 33.19 kg/m2 1.99 m2 09/06/2012 2:13:00 PM 136 mmHg 76 mmHg 72 bpm 18 rpm 97.7 F 197.25 lbs 64 in 33.8575 kg/m 2.01 m 09/06/2012 7:56:00 AM 128 mmHg 88 mmHg 104 bpm 18 rpm 96.2 F 197.25 lbs 64 in 33.86 kg/m2 2.01 m2 08/31/2012 2:53:00 PM 132 mmHg 68 mmHg 68 bpm 18 rpm 98.1 F 194.125 lbs 64 in 33.3211 kg/m 1.994 m 07/28/2012 10:22:00 AM 126 mmHg 72 mmHg 68 bpm 18 rpm 96.7 F 193.5 lbs 07/11/2012 1:57:00 PM 132 mmHg 68 mmHg 68 bpm 18 rpm 98 F 197.5 lbs 06/21/2012 11:10:00 AM 136 mmHg 82 mmHg 100 bpm 18 rpm 98.8 F 196.375 lbs 64 in 33.7073 kg/m 2.0055 m 06/20/2012 3:53:00 PM 140 mmHg 90 mmHg 103 bpm 20 rpm 97.7 F 197 lbs 64 in 33.81 kg/m2 2.01 m2 97 % 06/06/2012 1:30:00 PM 134 mmHg 92 mmHg 102 bpm 18 rpm 97.2 F 194 lbs 64 in 33.2997 kg/m 1.9934 m 05/03/2012 10:51:00 AM 136 mmHg 72 mmHg 68 bpm 18 rpm 98.7 F 190.25 lbs 04/28/2012 2:04:00 PM 124 mmHg 68 mmHg 96 bpm 20 rpm 96.4 F 188.4 lbs 64 in 32.3385 kg/m 1.9644 m 04/11/2012 2:18:00 PM 110 mmHg 78 mmHg 101 bpm 18 rpm 98.8 F 190 lbs 64 in 32.61 kg/m2 1.97 m2 98 % 03/30/2012 1:36:00 PM 128 mmHg 68 mmHg 68 bpm 18 rpm 97.9 F 184.125 lbs 64 in 31.6047 kg/m 1.942 m 03/15/2012 2:28:00 PM 124 mmHg 64 mmHg 64 bpm 18 rpm 97 F 182 lbs 64 in 31.24 kg/m2 1.93 m2 03/15/2012 12:54:00 PM 146 mmHg 82 mmHg 82 bpm 16 rpm 95.6 F 182.5 lbs 64 in 31.3257 kg/m 1.9334 m 02/09/2012 10:56:00 AM 132 mmHg 70 mmHg 68 bpm 18 rpm 97.8 F 181.125 lbs 64 in 31.09 kg/m2 1.93 m2 12/23/2011 2:48:00 PM 128 mmHg 66 mmHg 68 bpm 18 rpm 98.2 F 174.375 lbs 64 in 29.9311 kg/m 1.8899 m 11/02/2011 2:48:00 PM 132 mmHg 68 mmHg 84 bpm 18 rpm 98.4 F 172 lbs 64 in 29.52 kg/m2 1.88 m2 94 % 10/14/2011 10:34:00 AM 126 mmHg 66 mmHg 66 bpm 18 rpm 96.6 F 171.125 lbs 64 in 29.3732 kg/m 1.8722 m 09/27/2011 3:14:00 PM 136 mmHg 64 mmHg 68 bpm 18 rpm 97.1 F 166.5 lbs 64 in 28.58 kg/m2 1.85 m2 08/18/2011 10:40:00 AM 126 mmHg 72 mmHg 68 bpm 18 rpm 98.6 F 160.5 lbs 64 in 27.5495 kg/m 1.8131 m 08/02/2011 2:47:00 PM 120 mmHg 68 mmHg 68 bpm 18 rpm 96.8 F 160.375 lbs 64 in 27.53 kg/m2 1.81 m2 07/08/2011 1:36:00 PM 136 mmHg 74 mmHg 68 bpm 18 rpm 97.7 F 161.125 lbs 64 in 27.6568 kg/m 1.8166 m 07/05/2011 1:57:00 PM 128 mmHg 90 mmHg 84 bpm 16 rpm 96.6 F 160 lbs 64 in 27.46 kg/m2 1.81 m2 06/15/2011 1:48:00 PM 138 mmHg 70 mmHg 68 bpm 18 rpm 97.4 F 160.5 lbs 64 in 27.5495 kg/m 1.8131 m 05/14/2011 10:30:00 AM 118 mmHg 68 mmHg 72 bpm 18 rpm 96.6 F 159.375 lbs 64 in 27.36 kg/m2 1.81 m2 05/11/2011 12:46:00 PM 108 mmHg 80 mmHg 62 bpm 16 rpm 97.8 F 155 lbs 64 in 26.6054 kg/m 1.7818 m 04/28/2011 9:16:00 AM 118 mmHg 68 mmHg 68 bpm 18 rpm 96.5 F 159.5 lbs 64 in 27.38 kg/m2 1.81 m2 03/02/2011 2:57:00 PM 134 mmHg 78 mmHg 80 bpm 18 rpm 98.2 F 02/17/2011 9:47:00 AM 130 mmHg 72 mmHg 76 bpm 18 rpm 97.2 F 155 lbs 01/19/2011 10:48:00 AM 126 mmHg 80 mmHg 76 bpm 16 rpm 95.6 F 154.5 lbs 64 in 26.5196 kg/m 1.7789 m 12/16/2010 2:49:00 PM 110 mmHg 76 mmHg 78 bpm 16 rpm 96.9 F 12/02/2010 2:21:00 PM 122 mmHg 85 mmHg 96 bpm 98.4 F 157.312 lbs 64 in 27.0024 kg/m 1.795 m 11/24/2010 10:10:00 AM 128 mmHg 70 mmHg 74 bpm 18 rpm 98.2 F 148 lbs 11/17/2010 2:25:00 PM 134 mmHg 78 mmHg 70 bpm 18 rpm 98.3 F 150 lbs 10/01/2010 1:23:00 PM 116 mmHg 80 mmHg 74 bpm 16 rpm 97.6 F 09/02/2010 2:01:00 PM 124 mmHg 80 mmHg 84 bpm 16 rpm 97.1 F 08/26/2010 9:52:00 AM 106 mmHg 72 mmHg 76 bpm 16 rpm 97.4 F 146.5 lbs 07/23/2010 9:43:00 AM 102 mmHg 54 mmHg 84 bpm 18 rpm 97 F 148 lbs 07/06/2010 8:27:00 AM 112 mmHg 68 mmHg 68 bpm 16 rpm 98.4 F 149.5 lbs 06/18/2010 2:28:00 PM 132 mmHg 83 mmHg 99 bpm 98 F 06/03/2010 9:50:00 AM 130 mmHg 80 mmHg 96 bpm 20 rpm 98.2 F 150.375 lbs 03/18/2010 3:14:00 PM 134 mmHg 82 mmHg 82 bpm 16 rpm 97.1 F 152 lbs 02/06/2010 12:40:00 PM 140 mmHg 90 mmHg 88 bpm 16 rpm 97.4 F 151.25 lbs 02/04/2010 2:44:00 PM 135 mmHg 90 mmHg 81 bpm 98.4 F 01/29/2010 10:55:00 AM 118 mmHg 80 mmHg 95 bpm 20 rpm 96.9 F 168 lbs 93 % 12/16/2009 3:34:00 PM 128 mmHg 80 mmHg 69 bpm 98.1 F 12/10/2009 3:30:00 PM 110 mmHg 64 mmHg 68 bpm 16 rpm 97.8 F 152 lbs 11/26/2009 3:20:00 PM 128 mmHg 84 mmHg 74 bpm 98.6 F 146.5 lbs 63.5 in 25.544 kg/m 1.7255 m 11/17/2009 9:05:00 AM 124 mmHg 70 mmHg 72 bpm 16 rpm 97.6 F 151.25 lbs 11/10/2009 2:16:00 PM 128 mmHg 78 mmHg 80 bpm 16 rpm 99.8 F 144 lbs Social History Name Description Comments Lives with spouse in an apartment with a child recieving Social Security Disability Did not graduate from High School experimented with illicit drugs in past 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 10/20/2015 - History of Procedures Date Ordered Description Order Status 02/13/2015 12:00 AM IMMUNIZATION ADMIN Reviewed 02/13/2015 12:00 AM INFLUENZA VAC 4 VALENT PRSRV FREE 3 YRS PLUS IM Reviewed 02/13/2015 12:00 AM Tick Panel Reviewed 03/12/2015 12:00 AM Physical Therapy Consult Reviewed 03/21/2015 12:00 AM RADEX SPINE CERVICAL 2 OR 3 VIEWS Reviewed 04/29/2015 12:00 AM INFLUENZA A/B AG EIA Reviewed 05/20/2015 12:00 AM COMPLETE CBC W/AUTO DIFF WBC Reviewed 05/20/2015 12:00 AM COMPREHEN METABOLIC PANEL Reviewed 05/20/2015 12:00 AM CHEST X-RAY 2VW FRONTAL&LATL Reviewed 05/20/2015 12:00 AM BORDETELLA ANTIBODY Reviewed 05/20/2015 12:00 AM FIBRIN DEGRADATION QUANT Reviewed 05/26/2015 12:00 AM X-RAY EXAM OF FOOT Reviewed 06/02/2015 12:00 AM DXA BONE DENSITY AXIAL Reviewed 06/06/2015 12:00 AM TDAP VACCINE 7 YRS/> IM Reviewed 07/17/2015 12:00 AM INFLUENZA A/B AG EIA Reviewed 07/28/2015 12:00 AM X-RAY EXAM OF PELVIS Reviewed 04/28/2011 12:00 AM THER/PROPH/DIAG INJ SC/IM Reviewed 04/28/2011 12:00 AM Decadron 1 mg [facility]#[id number] (Jr) Reviewed 04/28/2011 12:00 AM Depo-Medrol 80 mg [facility]#[id number] Reviewed 09/02/2015 12:00 AM Toradol 60 Mg ND#7614-0541-99 Reviewed 09/02/2015 12:00 AM Phenergan, Up to 50 Mg [facility] Medicaid Reviewed 09/16/2015 12:00 AM Toradol 60 Mg N[facility]#6282-0917-70 Reviewed 09/16/2015 12:00 AM Phenergan Up to 50 mg [facility] Medicare Reviewed 05/11/2011 12:00 AM N BLOCK INJ OCCIPITAL Reviewed 05/11/2011 12:00 AM Kenalog [id number] ANNA Reviewed 11/13/2015 12:00 AM ASSAY OF TROPONIN QUANT Returned 11/13/2015 12:00 AM ASSAY THYROID STIM HORMONE Returned 11/13/2015 12:00 AM COMPLETE CBC W/AUTO DIFF WBC Returned 11/13/2015 12:00 AM METABOLIC PANEL TOTAL CA Returned 11/13/2015 12:00 AM ASSAY OF MAGNESIUM Returned 11/24/2015 12:00 AM COMPLETE CBC W/AUTO DIFF WBC Reviewed 11/24/2015 12:00 AM COMPREHEN METABOLIC PANEL Reviewed 11/24/2015 12:00 AM CHEST X-RAY 2VW FRONTAL&LATL Reviewed 06/15/2011 12:00 AM COMPLETE CBC W/AUTO DIFF WBC Reviewed 06/15/2011 12:00 AM COMPREHEN METABOLIC PANEL Reviewed 07/08/2011 12:00 AM THER/PROPH/DIAG INJ SC/IM Reviewed 07/08/2011 12:00 AM Toradol,15mg [facility]#[id number], Hetmejiaer Reviewed 07/08/2011 12:00 AM Phenergan 50 Mg Im [facility] 9158-0070-81 ALLIE Grahn Reviewed 01/21/2016 12:00 AM ECG MONIT/REPRT UP TO 48 HRS Returned 08/02/2011 12:00 AM THER/PROPH/DIAG INJ SC/IM Reviewed 08/02/2011 12:00 AM Decadron 1 mg [facility]#[id number] (Jr) Reviewed 08/02/2011 12:00 AM Depo-Medrol 80 mg [facility]#[id number]-Ipezqyyi Reviewed 03/05/2016 12:00 AM COMPLETE CBC W/AUTO DIFF WBC Reviewed 03/05/2016 12:00 AM STREP A ASSAY W/OPTIC Reviewed 03/05/2016 12:00 AM C-REACTIVE PROTEIN Reviewed 03/18/2016 12:00 AM [facility] MEDICARE - flu vaccine administration Reviewed 03/18/2016 12:00 AM INFLUENZA VACCINE QUADRIVALENT 3 YRS PLUS IM Reviewed 04/15/2016 12:00 AM Screening mammography, bilateral Reviewed 04/16/2016 12:00 AM Consult/Referral Reviewed 05/03/2016 12:00 AM METABOLIC PANEL TOTAL CA Returned 05/03/2016 12:00 AM COMPLETE CBC W/AUTO DIFF WBC Returned 06/07/2016 12:00 AM Consult/Referral Reviewed 09/27/2011 12:00 AM THER/PROPH/DIAG INJ SC/IM Reviewed 09/27/2011 12:00 AM Depo-Medrol 80 mg [facility]#[id number]-Bkinqpke Reviewed 09/27/2011 12:00 AM Depo-Medrol 40 mg [facility]#[id number] Reviewed 07/06/2016 12:00 AM CHEST X-RAY 4/> VIEWS Returned 10/14/2011 12:00 AM X-RAY EXAM OF ABDOMEN Reviewed 10/14/2011 12:00 AM URINALYSIS AUTO W/O SCOPE Reviewed 08/09/2016 12:00 AM INJ FORAMEN EPIDURAL L/S Reviewed 08/09/2016 12:00 AM INJECT SPINE LUMBAR/SACRAL Reviewed 08/09/2016 12:00 AM INJECT SPINE CERV/THORACIC Reviewed 09/09/2016 12:[address] HEAD/BRAIN W/O DYE Reviewed 09/22/2016 12:00 AM COMPLETE CBC W/AUTO DIFF WBC Returned 09/22/2016 12:00 AM COMPREHEN METABOLIC PANEL Returned 09/22/2016 12:00 AM LIPID PANEL Returned 09/22/2016 12:00 AM GLYCOSYLATED HEMOGLOBIN TEST Returned 09/22/2016 12:00 AM ALBUMIN URINE MICROALBUMIN QUANTIATIVE Returned 09/22/2016 12:00 AM ASSAY OF MAGNESIUM Returned 10/06/2016 12:00 AM STREP A ASSAY W/OPTIC Reviewed 12/23/2011 12:00 AM THER/PROPH/DIAG INJ SC/IM Reviewed 12/23/2011 12:00 AM Decadron 1 mg [facility]#[id number] (Jr) Reviewed 12/23/2011 12:00 AM Depo-Medrol 80 mg [facility]#[id number]-Mfbsoyme Reviewed 11/02/2016 11:45 AM URINALYSIS AUTO W/O SCOPE Reviewed 11/23/2016 12:00 AM COMPLETE CBC W/AUTO DIFF WBC Reviewed 11/23/2016 12:00 AM COMPREHEN METABOLIC PANEL Reviewed 11/23/2016 12:00 AM CHEST X-RAY 2VW FRONTAL&LATL Reviewed 11/23/2016 12:00 AM FIBRIN DEGRADE SEMIQUANT Reviewed 11/23/2016 12:00 AM ASSAY OF TROPONIN QUANT Reviewed 11/23/2016 12:00 AM ELECTROCARDIOGRAM TRACING Reviewed 12/02/2016 12:00 AM X-RAY EXAM OF ABDOMEN Returned 12/15/2016 12:00 AM X-RAY EXAM RIBS UNI 2 VIEWS Reviewed 12/20/2016 12:00 AM INJECT SPINE LUMBAR/SACRAL Reviewed 12/20/2016 12:00 AM INJECT SPINE CERV/THORACIC Reviewed 02/09/2012 12:00 AM THER/PROPH/DIAG INJ SC/IM Reviewed 02/09/2012 12:00 AM Decadron 1 mg [facility]#[id number] (Jr) Reviewed 02/09/2012 12:00 AM Depo-Medrol 80 mg [facility]#[id number]-Nbblznmr Reviewed 02/21/2017 12:00 AM CULTURE OTHR SPECIMN AEROBIC Returned 02/21/2017 12:00 AM INFLUENZA ASSAY W/OPTIC Returned 02/23/2017 12:00 AM COMPLETE CBC W/AUTO DIFF WBC Reviewed 02/23/2017 12:00 AM X-RAY EXAM OF KNEE 3 Returned 03/15/2012 12:00 AM N BLOCK INJ OCCIPITAL Reviewed 03/15/2012 12:00 AM Kenalog [id number] ANNA Reviewed 04/11/2012 12:00 AM COMPLETE CBC W/AUTO DIFF WBC Reviewed 04/11/2012 12:00 AM COMPREHEN METABOLIC PANEL Reviewed 04/11/2012 12:00 AM LIPID PANEL Reviewed 04/11/2012 12:00 AM ASSAY THYROID STIM HORMONE Reviewed 04/11/2012 12:00 AM DESTRUCT PREMALG LES 2-14 Reviewed 04/20/2017 12:00 AM INFLUENZA ASSAY W/OPTIC Returned 04/20/2017 12:00 AM HERPES SIMPLEX 1 AG IF Returned 04/20/2017 12:00 AM VIRUS INOCULATION SHELL VIA Returned 04/20/2017 12:00 AM HERPES SIMPLEX 2 AG IF Returned 04/20/2017 12:00 AM ANTIBODY DETECTION NOS IF Returned 06/28/2017 12:00 AM Screening mammography, bilateral Reviewed 06/02/2017 12:00 AM EXTRACRANIAL BILAT STUDY Returned 06/28/2017 12:00 AM CYTOPATH C/V THIN LAYER Reviewed 06/28/2017 12:00 AM SPECIMEN HANDLING OFFICE-LAB Reviewed 06/28/2017 12:00 AM MAMMOGRAM BOTH BREASTS Reviewed 06/24/2017 12:00 AM COMPLETE CBC W/AUTO DIFF WBC Reviewed 06/24/2017 12:00 AM COMPREHEN METABOLIC PANEL Reviewed 06/24/2017 12:00 AM URNLS DIP STICK/TABLET RGNT AUTO W/O MICROSCOPY Reviewed 06/24/2017 12:00 AM RBC SED RATE AUTOMATED Reviewed 07/18/2017 12:00 AM DETECT AGENT NOS DNA AMP Returned 06/20/2012 12:00 AM THER/PROPH/DIAG INJ SC/IM Reviewed 06/20/2012 12:00 AM Decadron, Per 1 Mg [facility]# [address]-76 Reviewed 06/20/2012 12:00 AM Depo-Medrol, Per 80 Mg [facility]#0202-1631-93 Reviewed 09/06/2017 12:00 AM RADEX FOOT COMPLETE MINIMUM 3 VIEWS Returned 09/06/2017 12:00 AM X-RAY EXAM RIBS UNI 2 VIEWS Returned 08/15/2017 12:00 AM COMPLETE CBC W/AUTO DIFF WBC Returned 08/15/2017 12:00 AM COMPREHEN METABOLIC PANEL Returned 08/15/2017 12:00 AM URINALYSIS AUTO W/SCOPE Returned 11/16/2017 12:00 AM MRI BRAIN STEM W/O & W/DYE Returned 09/06/2012 12:00 AM N BLOCK INJ OCCIPITAL Reviewed 09/06/2012 12:00 AM Kenalog [id number] ANNA Reviewed 09/06/2012 12:00 AM X-RAY EXAM RIBS UNI 2 VIEWS Reviewed 09/26/2012 12:00 AM THER/PROPH/DIAG INJ SC/IM Reviewed 09/26/2012 12:00 AM Decadron, Per 1 Mg [facility]# [address]-27 Reviewed 09/26/2012 12:00 AM Depo-Medrol, Per 80 Mg [facility]#1818-6348-73 Reviewed 11/02/2017 12:00 AM COMPLETE CBC W/AUTO DIFF WBC Reviewed 11/02/2017 12:00 AM METABOLIC PANEL TOTAL CA Reviewed 10/03/2012 12:00 AM URINALYSIS AUTO W/O SCOPE Reviewed 10/03/2012 12:00 AM THER/PROPH/DIAG INJ SC/IM Reviewed 10/03/2012 12:00 AM Toradol 60 Mg [facility]#6423-5886-37 Reviewed 10/03/2012 12:00 AM Phenergan, 25Mg [facility]#3746-3331-17 Reviewed 10/19/2012 12:00 AM N BLOCK INJ OCCIPITAL Reviewed 10/19/2012 12:00 AM Kenalog, Per 10 Mg [facility]#3392-4032-84 Reviewed 10/19/2012 12:00 AM Toradol 30 Mg [facility]#9284-1787-54 Reviewed 10/19/2012 12:00 AM THER/PROPH/DIAG INJ SC/IM Reviewed 10/31/2012 12:00 AM COMPLETE CBC W/AUTO DIFF WBC Reviewed 10/31/2012 12:00 AM COMPREHEN METABOLIC PANEL Reviewed 10/31/2012 12:00 AM LIPID PANEL Reviewed 10/31/2012 12:00 AM ELECTROCARDIOGRAM COMPLETE Reviewed 11/03/2012 12:[address] THORAX W/O & W/DYE Reviewed 11/08/2012 12:00 AM N BLOCK INJ OCCIPITAL Reviewed 11/08/2012 12:00 AM Kenalog [id number] ANNA Reviewed 11/27/2012 12:00 AM COMPLETE CBC W/AUTO DIFF WBC Reviewed 11/27/2012 12:00 AM COMPREHEN METABOLIC PANEL Reviewed 11/27/2012 12:00 AM URINALYSIS NONAUTO W/SCOPE Reviewed 01/05/2013 12:00 AM IMMUNOTHERAPY INJECTIONS Reviewed 01/11/2013 12:00 AM Holter monitoring, 24-hour, continuous original ECG waveform, recording and storage without superimposition scanning utilizing a device capable of producing a full miniaturized printout; includes recording, microprocessor-based analysis with report, physician review and interpretation Reviewed 01/11/2013 12:00 AM IMMUNOTHERAPY INJECTIONS Reviewed 01/18/2013 12:00 AM IMMUNOTHERAPY INJECTIONS Reviewed 01/22/2013 12:00 AM Pelvic & Breast Exam - Medicare Reviewed 01/22/2013 12:00 AM Pap Specimen Handling - Medicare Reviewed 01/22/2013 12:00 AM HIV-1ANTIBODY Reviewed 01/25/2013 12:00 AM THER/PROPH/DIAG INJ SC/IM Reviewed 01/25/2013 12:00 AM Decadron, Per 1 Mg [facility]# [id number] Reviewed 01/25/2013 12:00 AM Depo-Medrol, Per 80 Mg [facility]#1460-2215-70 Reviewed 01/26/2013 12:00 AM IMMUNOTHERAPY ONE INJECTION Reviewed 01/26/2013 12:00 AM IMMUNOTHERAPY INJECTIONS Reviewed 02/01/2013 12:00 AM IMMUNOTHERAPY INJECTIONS Reviewed 02/08/2013 12:00 AM IMMUNOTHERAPY INJECTIONS Reviewed 02/16/2013 12:00 AM IMMUNOTHERAPY INJECTIONS Reviewed 03/14/2013 12:00 AM IMMUNOTHERAPY INJECTIONS Reviewed 03/20/2013 12:00 AM Cervical Spine Complete - MOB Reviewed 03/21/2013 12:00 AM COMPLETE CBC W/AUTO DIFF WBC Reviewed 03/21/2013 12:00 AM COMPREHEN METABOLIC PANEL Reviewed 03/21/2013 12:00 AM ASSAY OF LIPASE Reviewed 03/21/2013 12:00 AM X-RAY EXAM OF ABDOMEN Reviewed 03/22/2013 12:00 AM GLYCOSYLATED HEMOGLOBIN TEST Reviewed 04/03/2013 12:00 AM IMMUNOTHERAPY INJECTIONS Reviewed 04/17/2013 12:00 AM URINE CULTURE/COLONY COUNT Reviewed 04/25/2013 12:00 AM IMMUNOTHERAPY INJECTIONS Reviewed 03/05/2013 12:00 AM IMMUNOTHERAPY INJECTIONS Reviewed 05/16/2013 12:00 AM THER/PROPH/DIAG INJ SC/IM Reviewed 05/16/2013 12:00 AM Decadron, Per 1 Mg [place]# [address]-63 Reviewed 05/16/2013 12:00 AM Depo-Medrol, Per 80 Mg [facility]#4754-7920-70 Reviewed 05/31/2013 12:00 AM IMMUNOTHERAPY INJECTIONS Reviewed 06/08/2013 12:00 AM IMMUNOTHERAPY INJECTIONS Reviewed 06/14/2013 12:00 AM IMMUNOTHERAPY INJECTIONS Reviewed 06/28/2013 12:00 AM IMMUNOTHERAPY INJECTIONS Reviewed 07/12/2013 12:00 AM X-RAY EXAM RIBS UNI 2 VIEWS Reviewed 07/18/2013 12:00 AM Toradol 60 Mg [facility]#9633-4337-71 Reviewed 07/18/2013 12:00 AM THER/PROPH/DIAG INJ SC/IM Reviewed 08/23/2013 12:00 AM COMPLETE CBC W/AUTO DIFF WBC Reviewed 08/23/2013 12:00 AM COMPREHEN METABOLIC PANEL Reviewed 08/23/2013 12:00 AM LIPID PANEL Reviewed 08/31/2013 12:00 AM X-RAY EXAM OF LOWER LEG Reviewed 09/04/2013 12:00 AM IMMUNOTHERAPY INJECTIONS Reviewed 09/14/2013 12:00 AM THER/PROPH/DIAG INJ SC/IM Reviewed 09/14/2013 12:00 AM Decadron, Per 1 Mg [facility]# [address]-46 Reviewed 09/14/2013 12:00 AM Depo-Medrol, Per 80 Mg [facility]#2462-4998-53 Reviewed 09/20/2013 12:00 AM IMMUNOTHERAPY INJECTIONS Reviewed 10/02/2013 12:00 AM IMMUNOTHERAPY INJECTIONS Reviewed 10/17/2013 12:00 AM IMMUNOTHERAPY INJECTIONS Reviewed 11/11/2009 12:00 AM URINALYSIS AUTO W/SCOPE Reviewed 11/26/2009 12:00 AM CYTOPATH TBS C/V MANUAL Reviewed 11/26/2009 12:00 AM SPECIMEN HANDLING OFFICE-LAB Reviewed 11/26/2009 12:00 AM N.GONORRHOEAE DNA AMP PROB Reviewed 11/26/2009 12:00 AM CHLAMYDIA CULTURE Reviewed 11/26/2009 12:00 AM COMPLETE CBC W/AUTO DIFF WBC Reviewed 11/26/2009 12:00 AM ASSAY GLUCOSE BLOOD QUANT Reviewed 12/10/2009 12:00 AM N BLOCK INJ OCCIPITAL Reviewed 12/10/2009 12:00 AM Kenalog [id number] ANNA Reviewed 12/16/2009 12:00 AM HIV-1ANTIBODY Reviewed 12/16/2009 12:00 AM COMPLETE CBC W/AUTO DIFF WBC Reviewed 12/16/2009 12:00 AM METABOLIC PANEL TOTAL CA Reviewed 12/16/2009 12:00 AM Type and screen Reviewed 12/16/2009 12:00 AM PROTHROMBIN TIME Reviewed 12/16/2009 12:00 AM THROMBOPLASTIN TIME PARTIAL Reviewed 03/18/2010 12:00 AM DRAIN/INJ JOINT/BURSA W/O US Reviewed 03/18/2010 12:00 AM Kenalog [id number] ANNA Reviewed 11/21/2013 12:00 AM RADEX HAND MINIMUM 3 VIEWS Reviewed 06/03/2010 12:00 AM INJ TRIGGER POINT 1/2 MUSCL Reviewed 06/03/2010 12:00 AM Kenalog per 10Mg Im-Ndc#[address]-60(Niall) Reviewed 12/05/2013 12:00 AM COMPLETE CBC W/AUTO DIFF WBC Reviewed 12/05/2013 12:00 AM COMPREHEN METABOLIC PANEL Reviewed 12/05/2013 12:00 AM LIPID PANEL Reviewed 12/05/2013 12:00 AM GLYCOSYLATED HEMOGLOBIN TEST Reviewed 12/05/2013 12:00 AM ASSAY THYROID STIM HORMONE Reviewed 12/05/2013 12:00 AM ACUTE HEPATITIS PANEL Reviewed 12/05/2013 12:00 AM ASSAY OF GONADOTROPIN (FSH) Reviewed 12/05/2013 12:00 AM ASSAY OF ESTRADIOL Reviewed 12/05/2013 12:00 AM ASSAY OF FREE TESTOSTERONE Reviewed 12/05/2013 12:00 AM ASSAY OF PROGESTERONE Reviewed 06/18/2010 12:00 AM INJ TRIGGER POINT 1/2 MUSCL Reviewed 01/10/2014 12:00 AM Prolia, 1 Mg RHC Medicare Reviewed 02/07/2014 12:00 AM VIT D 1 25-DIHYDROXY Reviewed 02/13/2014 12:00 AM VIRUS INOCULATION TISSUE Reviewed 02/25/2014 12:00 AM COMPLETE CBC W/AUTO DIFF WBC Reviewed 02/25/2014 12:00 AM COMPREHEN METABOLIC PANEL Reviewed 02/25/2014 12:00 AM METABOLIC PANEL TOTAL CA Reviewed 02/25/2014 12:00 AM LIPID PANEL Reviewed 02/25/2014 12:00 AM GLYCOSYLATED HEMOGLOBIN TEST Reviewed 02/25/2014 12:00 AM Physical Therapy Consult Reviewed 07/23/2010 12:00 AM INJ TRIGGER POINT 1/2 MUSCL Reviewed 07/23/2010 12:00 AM Kenalog per 10Mg Im-Ndc#[address]-45(Niall) Reviewed 2014 12:00 AM COMPLETE CBC W/AUTO DIFF WBC Reviewed 2014 12:00 AM COMPREHEN METABOLIC PANEL Reviewed 2014 12:00 AM ASSAY OF MAGNESIUM Reviewed 2014 12:00 AM ELECTROCARDIOGRAM COMPLETE Reviewed 04/24/2014 12:00 AM INFLUENZA VAC 4 VALENT PRSRV FREE 3 YRS PLUS IM Reviewed 08/26/2010 12:00 AM URINALYSIS NONAUTO W/SCOPE Reviewed 08/26/2010 12:00 AM METABOLIC PANEL TOTAL CA Reviewed 05/27/2014 12:00 AM COMPLETE CBC W/AUTO DIFF WBC Reviewed 05/27/2014 12:00 AM COMPREHEN METABOLIC PANEL Reviewed 05/27/2014 12:00 AM LIPID PANEL Reviewed 05/27/2014 12:00 AM VITAMIN B-12 Reviewed 05/27/2014 12:00 AM ASSAY THYROID STIM HORMONE Reviewed 05/27/2014 12:00 AM ASSAY OF PHOSPHORUS Reviewed 05/27/2014 12:00 AM ASSAY OF PARATHORMONE Reviewed 05/27/2014 12:00 AM VIT D 1 25-DIHYDROXY Reviewed 06/06/2014 12:00 AM INFLUENZA A/B AG EIA Reviewed 06/12/2014 12:00 AM CHEST X-RAY 2VW FRONTAL&LATL Reviewed 06/27/2014 12:00 AM CHEST X-RAY 2VW FRONTAL&LATL Reviewed 07/18/2014 12:[address] HEAD/BRAIN W/O DYE Reviewed 07/29/2014 12:00 AM MRI BRAIN STEM W/O & W/DYE Reviewed 07/29/2014 12:00 AM MRI JNT OF LWR EXTRE W/O DYE Reviewed 10/01/2010 12:00 AM N BLOCK INJ OCCIPITAL Reviewed 10/01/2010 12:00 AM Kengretta [id number] ANNA Reviewed 07/25/2014 12:00 AM THER/PROPH/DIAG INJ SC/IM Reviewed 07/25/2014 12:00 AM Prolia, 60 Mg Reviewed 07/01/2014 12:00 AM COMPLETE CBC W/AUTO DIFF WBC Reviewed 07/01/2014 12:00 AM COMPREHEN METABOLIC PANEL Reviewed 07/01/2014 12:00 AM MRI JOINT OF LWR EXTR W/DYE Reviewed 07/01/2014 12:00 AM ASSAY OF GGT Reviewed 07/01/2014 12:00 AM ALPHA-FETOPROTEIN SERUM Reviewed 07/11/2014 12:00 AM CHEST X-RAY 2VW FRONTAL&LATL Reviewed 08/28/2014 12:00 AM CLOSTRIDIUM AG EIA Reviewed 08/28/2014 12:00 AM X-RAY EXAM OF ABDOMEN Reviewed 08/28/2014 12:00 AM FECES CULTURE AEROBIC BACT Reviewed 10/01/2014 12:00 AM COMPREHEN METABOLIC PANEL Reviewed 11/19/2010 12:[address] ABDOMEN W/O & W/DYE Reviewed 11/19/2010 12:[address] PELVIS W/O & W/DYE Reviewed 09/25/2014 12:00 AM CLOSTRIDIUM AG EIA Reviewed 09/25/2014 12:00 AM COMPREHEN METABOLIC PANEL Reviewed 09/25/2014 12:00 AM ASSAY OF LIPASE Reviewed 12/02/2010 12:00 AM CYTOPATH TBS C/V MANUAL Reviewed 12/02/2010 12:00 AM Pelvic & Breast Exam - Medicare Reviewed 12/02/2010 12:00 AM Pap Specimen Handling - Medicare Reviewed 10/18/2014 12:00 AM COMPLETE CBC W/AUTO DIFF WBC Reviewed 10/18/2014 12:00 AM COMPREHEN METABOLIC PANEL Reviewed 10/18/2014 12:00 AM GLYCOSYLATED HEMOGLOBIN TEST Reviewed 10/18/2014 12:00 AM URINALYSIS AUTO W/SCOPE Reviewed 10/18/2014 12:00 AM MICROALBUMIN QUANTITATIVE Reviewed 01/08/2015 12:00 AM CYTOPATH TBS C/V MANUAL Reviewed 01/08/2015 12:00 AM SPECIMEN HANDLING OFFICE-LAB Reviewed 01/15/2015 12:00 AM ENT Consult Reviewed Results Summary Date and Description Results 11/11/2009 2:49 PM COLOR YELLOW APPEARANCE CLEAR SPEC GRAV 1.010 pH 6.5 PROTEIN NEGATIVE GLUCOSE NEGATIVE KETONE NEGATIVE BILIRUBIN NEGATIVE BLOOD TRACE -LYSED NITRITE NEGATIVE LEUK SCREEN NEGATIVE WBC/HPF 0-5 RBC/HPF RARE CASTS/LPF NEGATIVE CRYSTALS NEGATIVE MUCOUS THRDS NEGATIVE BACTERIA FEW EPITH CELLS FEW SQUAMOUS TRICHOMONAS NEGATIVE YEAST NEGATIVE CULT SET UP? NO 12/16/2009 5:20 PM PROTIME 10.30 secsINR 1.0 PTT 26.70 secsGLUCOSE 91.0 mg/ dLSODIUM 136.0 mmol/LPOTASSIUM 4.10 mmol/LCHLORIDE 101.0 mmol/LCO2 24.0 mmol/ LBUN 11.0 mg/dLCREATININE 0.70 mg/dLCALCIUM 10.20 mg/dLAGE 34 GFR NonAA 96 GFR AA 116 eGFR >60 mL/min/1.73 m2eGFR AA* >60 WBC 10.5 RBC 3.65 HGB 11.40 g/dLHCT 34.80 %MCV 95.0 fLMCH 31.20 pgMCHC 32.80 g/dLRDW SD 48 RDW CV 13.70 %MPV 11.30 fLPLT 310 NRBC# 0.00 NRBC% 0.0 %NEUT 58.90 %%LYMP 30.0 %%MONO 6.40 %%EOS 4.40 %% BASO 0.30 %#NEUT 6.17 #LYMP 3.14 #MONO 0.67 #EOS 0.46 #BASO 0.03 MANUAL DIFF NOT IND 08/26/2010 10:35 AM COLOR YELLOW APPEARANCE TURBID SPEC GRAV >=1.030 pH 6.0 PROTEIN NEGATIVE GLUCOSE NEGATIVE KETONE NEGATIVE BILIRUBIN NEGATIVE BLOOD NEGATIVE NITRITE NEGATIVE LEUK SCREEN NEGATIVE WBC/HPF NEGATIVE RBC/HPF NEGATIVE CASTS/LPF NEGATIVE CRYSTALS 4++++ AMORPH MUCOUS THRDS NEGATIVE BACTERIA NEGATIVE EPITH CELLS FEW SQUAMOUS TRICHOMONAS NEGATIVE YEAST NEGATIVE CULT SET UP? NO GLUCOSE 101.0 mg/dLSODIUM 140.0 mmol/LPOTASSIUM 4.80 mmol/ LCHLORIDE 103.0 mmol/LCO2 26.0 mmol/LBUN 11.0 mg/dLCREATININE 0.70 mg/dLCALCIUM 10.50 mg/dLAGE 35 GFR NonAA 96 GFR AA 116 eGFR >60 mL/min/1.73 m2eGFR AA* >60 06/15/2011 2:38 PM WBC 13.1 RBC 4.51 HGB 13.50 g/dLHCT 40.60 %MCV 90.0 fLMCH 29.90 pgMCHC 33.30 g/dLRDW SD 44 RDW CV 13.40 %MPV 11.40 fLPLT 288 NRBC# 0.00 NRBC% 0.0 %NEUT 71.30 %%LYMP 20.70 %%MONO 5.10 %%EOS 2.50 %%BASO 0.40 %#NEUT 9.34 #LYMP 2.72 #MONO 0.67 #EOS 0.33 #BASO 0.05 MANUAL DIFF NOT IND GLUCOSE 103.0 mg/dLSODIUM 142.0 mmol/LPOTASSIUM 4.40 mmol/LCHLORIDE 103.0 mmol/LCO2 29.0 mmol/LBUN 7.0 mg/dLCREATININE 0.70 mg/dLSGOT/AST 15.0 IU/LSGPT/ALT 27.0 IU/ LALK PHOS 173.0 IU/LTOTAL PROTEIN 7.90 g/dLALBUMIN 5.0 g/dLTOTAL BILI 0.20 mg/ dLCALCIUM 10.50 mg/dLAGE 36 GFR NonAA 95 GFR AA 115 eGFR >60 mL/min/1.73 m2eGFR AA* >60 04/24/2012 11:10 AM WBC 10.6 RBC 4.50 HGB 13.20 g/dLHCT 40.60 %MCV 90.0 fLMCH 29.30 pgMCHC 32.50 g/dLRDW SD 45 RDW CV 13.50 %MPV 11.30 fLPLT 231 NRBC# 0.00 NRBC% 0.0 %NEUT 65.0 %%LYMP 25.10 %%MONO 6.70 %%EOS 2.90 %%BASO 0.30 %#NEUT 6.91 #LYMP 2.67 #MONO 0.71 #EOS 0.31 #BASO 0.03 MANUAL DIFF NOT IND GLUCOSE 93.0 mg/dLSODIUM 139.0 mmol/LPOTASSIUM 4.30 mmol/LCHLORIDE 105.0 mmol/LCO2 23.0 mmol/LBUN 9.0 mg/dLCREATININE 0.70 mg/dLSGOT/AST 37.0 IU/LSGPT/ALT 62.0 IU/LALK PHOS 131.0 IU/LTOTAL PROTEIN 7.70 g/dLALBUMIN 4.70 g/dLTOTAL BILI 0.30 mg/ dLCALCIUM 10.10 mg/dLAGE 37 GFR NonAA 95 GFR AA 115 eGFR 60 eGFR AA* 60 TRIGLYCERIDES 347.0 mg/dLCHOLESTEROL 168.0 mg/dLHDL 23.0 mg/dLTOT CHOL/HDL 7.3 LDL (CALC) 76.0 mg/dLTSH 0.930 uIU/mL 11/01/2012 9:46 AM GLUCOSE 141.0 mg/dLSODIUM 138.0 mmol/LPOTASSIUM 5.10 mmol/ LCHLORIDE 100.0 mmol/LCO2 25.0 mmol/LBUN 13.0 mg/dLCREATININE 0.80 mg/dLSGOT/ AST 51.0 IU/LSGPT/ALT 107.0 IU/LALK PHOS 109.0 IU/LTOTAL PROTEIN 7.90 g/ dLALBUMIN 4.70 g/dLTOTAL BILI 0.50 mg/dLCALCIUM 11.30 mg/dLAGE 37 GFR NonAA 81 GFR AA 98 eGFR 60 eGFR AA* 60 TRIGLYCERIDES 673.0 mg/dLCHOLESTEROL 254.0 mg/ dLHDL 15.0 mg/dLTOT CHOL/HDL 16.9 LDL (CALC) INVALID MG/DL TRIG WBC 16.6 RBC 4.37 HGB 13.30 g/dLHCT 41.10 %MCV 94.0 fLMCH 30.40 pgMCHC 32.40 g/dLRDW SD 50 RDW CV 14.60 %MPV 12.0 fLPLT 344 NRBC# 0.00 NRBC% 0.0 %NEUT 70.90 %%LYMP 22.70 % %MONO 5.30 %%EOS 0.70 %%BASO 0.40 %#NEUT 11.79 #LYMP 3.77 #MONO 0.88 #EOS 0.11 # BASO 0.06 MANUAL DIFF SEE BELOW SEGS 70 BANDS 8 LYMPHS 20 MONOS 2 11/27/2012 1:52 PM COLOR ORANGE APPEARANCE HAZY SPEC GRAV 1.010 pH 5.0 PROTEIN 100 GLUCOSE 250 KETONE TRACE BILIRUBIN NEGATIVE BLOOD NEGATIVE NITRITE NEGATIVE LEUK SCREEN NEGATIVE WBC/HPF RARE RBC/HPF NEGATIVE CASTS/LPF NEGATIVE CRYSTALS NEGATIVE MUCOUS THRDS NEGATIVE BACTERIA NEGATIVE EPITH CELLS FEW SQUAMOUS TRICHOMONAS NEGATIVE YEAST NEGATIVE CULT SET UP? NO WBC 20.0 RBC 4.06 HGB 12.90 g/dLHCT 38.90 %MCV 96.0 fLMCH 31.80 pgMCHC 33.20 g/dLRDW SD 48 RDW CV 13.50 % MPV 11.70 fLPLT 382 NRBC# 0.00 NRBC% 0.0 %NEUT 75.10 %%LYMP 16.90 %%MONO 5.0 %% EOS 2.60 %%BASO 0.40 %#NEUT 15.05 #LYMP 3.38 #MONO 1.01 #EOS 0.52 #BASO 0.08 MANUAL DIFF SEE BELOW SEGS 77 BANDS 1 LYMPHS 15 MONOS 4 EOS 3.0 %GLUCOSE 146.0 mg/dLSODIUM 139.0 mmol/LPOTASSIUM 5.10 mmol/LCHLORIDE 99.0 mmol/LCO2 27.0 mmol/ LBUN 9.0 mg/dLCREATININE 1.0 mg/dLSGOT/AST 77.0 IU/LSGPT/ALT 94.0 IU/LALK PHOS 84.0 IU/LTOTAL PROTEIN 8.0 g/dLALBUMIN 4.80 g/dLTOTAL BILI 0.50 mg/dLCALCIUM 11.60 mg/dLAGE 37 GFR NonAA 63 GFR AA 76 eGFR 60 eGFR AA* 60 01/22/2013 3:52 PM HIV AG/AB COMBO 0.13 03/21/2013 2:27 PM HGB A1C 6.10 %Est Avg Glucose 128.4 mg/dL 03/21/2013 2:37 PM WBC 16.2 RBC 4.14 HGB 13.10 g/dLHCT 39.90 %MCV 96.0 fLMCH 31.60 pgMCHC 32.80 g/dLRDW SD 48 RDW CV 13.70 %MPV 11.70 fLPLT 371 NRBC# 0.00 NRBC% 0.0 %NEUT 68.80 %%LYMP 23.30 %%MONO 5.10 %%EOS 2.40 %%BASO 0.40 %#NEUT 11.09 #LYMP 3.77 #MONO 0.83 #EOS 0.39 #BASO 0.07 MANUAL DIFF SEE BELOW SEGS 66 BANDS 1 LYMPHS 19 MONOS 9 EOS 4.0 %BASO 1.0 %GLUCOSE 187.0 mg/dLSODIUM 137.0 mmol/LPOTASSIUM 4.40 mmol/LCHLORIDE 99.0 mmol/LCO2 25.0 mmol/LBUN 7.0 mg/ dLCREATININE 0.80 mg/dLSGOT/AST 94.0 IU/LSGPT/ALT 124.0 IU/LALK PHOS 106.0 IU/ LTOTAL PROTEIN 8.20 g/dLALBUMIN 4.70 g/dLTOTAL BILI 0.60 mg/dLCALCIUM 10.90 mg/ dLAGE 38 GFR NonAA 81 GFR AA 98 eGFR >60 mL/min/1.73 m2eGFR AA* >60 LIPASE 45.0 U/L 08/31/2013 10:54 AM GLUCOSE 255.0 mg/dLSODIUM 133.0 mmol/LPOTASSIUM 4.60 mmol/ LCHLORIDE 100.0 mmol/LCO2 20.0 mmol/LBUN 12.0 mg/dLCREATININE 0.80 mg/dLSGOT/ AST 52.0 IU/LSGPT/ALT 87.0 IU/LALK PHOS 118.0 IU/LTOTAL PROTEIN 7.20 g/ dLALBUMIN 4.30 g/dLTOTAL BILI 0.30 mg/dLCALCIUM 9.30 mg/dLAGE 38 GFR NonAA 81 GFR AA 98 eGFR 60 eGFR AA* 60 WBC 11.3 RBC 3.96 HGB 12.40 g/dLHCT 37.80 %MCV 96.0 fLMCH 31.30 pgMCHC 32.80 g/dLRDW SD 45 RDW CV 12.80 %MPV 12.50 fLPLT 242 NRBC# 0.00 NRBC% 0.0 %NEUT 65.40 %%LYMP 26.60 %%MONO 5.30 %%EOS 2.30 %%BASO 0.40 %#NEUT 7.36 #LYMP 3.00 #MONO 0.60 #EOS 0.26 #BASO 0.05 MANUAL DIFF NOT IND TRIGLYCERIDES 908.0 mg/dLCHOLESTEROL 243.0 mg/dLHDL 16.0 mg/dLTOT CHOL/HDL 15.2 LDL (CALC) INVALID MG/DL 12/12/2013 11:25 AM WBC 12.1 RBC 4.68 HGB 14.30 g/dLHCT 41.30 %MCV 88.0 fLMCH 30.60 pgMCHC 34.60 g/dLRDW SD 44 RDW CV 13.70 %MPV 12.80 fLPLT 272 NRBC# 0.00 NRBC% 0.0 %NEUT 65.80 %%LYMP 25.60 %%MONO 4.20 %%EOS 4.10 %%BASO 0.30 %#NEUT 7.97 #LYMP 3.11 #MONO 0.51 #EOS 0.50 #BASO 0.04 MANUAL DIFF NOT IND GLUCOSE 358.0 mg/dLSODIUM 129.0 mmol/LPOTASSIUM 3.20 mmol/LCHLORIDE 89.0 mmol/LCO2 23.0 mmol/LBUN 6.0 mg/dLCREATININE 0.70 mg/dLSGOT/AST 34.0 IU/LSGPT/ALT 43.0 IU/LALK PHOS 212.0 IU/LTOTAL PROTEIN 8.30 g/dLALBUMIN 4.10 g/dLTOTAL BILI 0.50 mg/ dLCALCIUM 10.10 mg/dLAGE 38 GFR NonAA 94 GFR AA 114 eGFR 60 eGFR AA* 60 HGB A1C 12.90 %Est Avg Glucose 323.5 mg/dLTSH 0.30 uIU/mLPROGESTERONE 0.10 ng/ mLESTRADIOL 15.0 pg/mLFSH 70.20 mIU/mLTRIGLYCERIDES 1990.0 mg/dLCHOLESTEROL 362.0 mg/dLHDL 21.0 mg/dLTOT CHOL/HDL 17.2 LDL (CALC) INVALID MG/DLHep A Ab, IgM Negative HBsAg Screen Negative Hep B Core Ab, IgM Negative Hep C Virus Ab < 0.1 Free Testosterone(Direct) 0.50 pg/mL 02/07/2014 3:55 PM VITAMIN D 31.10 ng/mL 02/27/2014 10:45 AM WBC 14.1 RBC 4.37 HGB 13.20 g/dLHCT 38.70 %MCV 89.0 fLMCH 30.20 pgMCHC 34.10 g/dLRDW SD 44 RDW CV 13.60 %MPV 11.50 fLPLT 355 NRBC# 0.00 NRBC% 0.0 %NEUT 71.20 %%LYMP 21.0 %%MONO 4.80 %%EOS 2.80 %%BASO 0.20 %#NEUT 10.03 #LYMP 2.95 #MONO 0.68 #EOS 0.39 #BASO 0.03 MANUAL DIFF SEE BELOW SEGS 75 LYMPHS 20 MONOS 3 EOS 2.0 %GLUCOSE 105.0 mg/dLSODIUM 134.0 mmol/LPOTASSIUM 5.90 mmol/LCHLORIDE 98.0 mmol/LCO2 23.0 mmol/LBUN 12.0 mg/dLCREATININE 0.80 mg/dLSGOT /AST 20.0 IU/LSGPT/ALT 37.0 IU/LALK PHOS 123.0 IU/LTOTAL PROTEIN 8.10 g/ dLALBUMIN 4.90 g/dLTOTAL BILI 0.30 mg/dLCALCIUM 10.80 mg/dLAGE 38 GFR NonAA 81 GFR AA 98 eGFR 60 eGFR AA* 60 TRIGLYCERIDES 905.0 mg/dLCHOLESTEROL 286.0 mg/ dLHDL 27.0 mg/dLTOT CHOL/HDL 10.6 LDL (CALC) INVALID MG/DLGLUCOSE 105.0 mg/ dLSODIUM 134.0 mmol/LPOTASSIUM 5.90 mmol/LCHLORIDE 98.0 mmol/LCO2 23.0 mmol/ LBUN 12.0 mg/dLCREATININE 0.80 mg/dLCALCIUM 10.80 mg/dLAGE 38 GFR NonAA 81 GFR AA 98 eGFR 60 eGFR AA* 60 HGB A1C 6.0 %Est Avg Glucose 125.5 mg/dL 2014 4:42 PM WBC 16.9 RBC 4.22 HGB 12.80 g/dLHCT 37.40 %MCV 89.0 fLMCH 30.30 pgMCHC 34.20 g/dLRDW SD 43 RDW CV 13.40 %MPV 11.30 fLPLT 325 NRBC# 0.00 NRBC% 0.0 %NEUT 69.80 %%LYMP 24.20 %%MONO 3.30 %%EOS 2.40 %%BASO 0.30 %#NEUT 11.76 #LYMP 4.07 #MONO 0.56 #EOS 0.41 #BASO 0.05 MANUAL DIFF SEE BELOW SEGS 74 LYMPHS 22 MONOS 4 WBC 16.9 RBC 4.22 HGB 12.80 g/dLHCT 37.40 %MCV 89.0 fLMCH 30.30 pgMCHC 34.20 g/dLRDW SD 43 RDW CV 13.40 %MPV 11.30 fLPLT 325 NRBC# 0.00 NRBC% 0.0 %NEUT 69.80 %%LYMP 24.20 %%MONO 3.30 %%EOS 2.40 %%BASO 0.30 %#NEUT 11.76 #LYMP 4.07 #MONO 0.56 #EOS 0.41 #BASO 0.05 MANUAL DIFF PENDING MAGNESIUM 1.40 mg/dLGLUCOSE 104.0 mg/dLSODIUM 133.0 mmol/LPOTASSIUM 4.70 mmol/LCHLORIDE 98.0 mmol/LCO2 22.0 mmol/LBUN 10.0 mg/dLCREATININE 0.70 mg/dLSGOT/AST 28.0 IU/ LSGPT/ALT 50.0 IU/LALK PHOS 119.0 IU/LTOTAL PROTEIN 8.0 g/dLALBUMIN 4.60 g/ dLTOTAL BILI 0.20 mg/dLCALCIUM 10.0 mg/dLAGE 39 GFR NonAA 94 GFR AA 114 eGFR 60 eGFR AA* 60 06/06/2014 12:10 PM INFLUENZA A & B NO INFLUENZA A OR B DETECTED GLUCOSE 159.0 mg/dLSODIUM 132.0 mmol/LPOTASSIUM 4.50 mmol/LCHLORIDE 100.0 mmol/LCO2 23.0 mmol/ LBUN 11.0 mg/dLCREATININE 0.70 mg/dLSGOT/AST 29.0 IU/LSGPT/ALT 45.0 IU/LALK PHOS 150.0 IU/LTOTAL PROTEIN 8.50 g/dLALBUMIN 4.90 g/dLTOTAL BILI 0.40 mg/ dLCALCIUM 10.60 mg/dLAGE 39 GFR NonAA 94 GFR AA 114 eGFR >60 mL/min/1.73 m2eGFR AA* >60 TRIGLYCERIDES 369.0 mg/dLCHOLESTEROL 153.0 mg/dLHDL 26.0 mg/dLTOT CHOL/ HDL 5.9 LDL (CALC) 53.0 mg/dLPHOSPHORUS 3.20 mg/dLTSH 0.180 uIU/mLWBC 16.1 RBC 4.86 HGB 14.50 g/dLHCT 43.30 %MCV 89.0 fLMCH 29.80 pgMCHC 33.50 g/dLRDW SD 43 RDW CV 13.10 %MPV 11.70 fLPLT 367 NRBC# 0.00 NRBC% 0.0 %NEUT 60.30 %%LYMP 32.20 %%MONO 3.90 %%EOS 3.40 %%BASO 0.20 %#NEUT 9.69 #LYMP 5.18 #MONO 0.62 #EOS 0.55 # BASO 0.04 MANUAL DIFF SEE BELOW SEGS 67 BANDS 1 LYMPHS 29 MONOS 2 EOS 1.0 % VITAMIN B12 352.0 pg/mLVITAMIN D >96.0 ng/mLPTH, Intact 14 08/30/2014 1:42 PM C DIFFICILE NAAT NEGATIVE 09/25/2014 3:38 PM LIPASE 46.0 U/LGLUCOSE 116.0 mg/dLSODIUM 134.0 mmol/ LPOTASSIUM 4.60 mmol/LCHLORIDE 98.0 mmol/LCO2 26.0 mmol/LBUN 10.0 mg/ dLCREATININE 0.80 mg/dLSGOT/AST 49.0 IU/LSGPT/ALT 74.0 IU/LALK PHOS 95.0 IU/ LTOTAL PROTEIN 8.50 g/dLALBUMIN 4.0 g/dLTOTAL BILI 0.30 mg/dLCALCIUM 10.70 mg/ dLAGE 39 GFR NonAA 80 GFR AA 97 eGFR >60 mL/min/1.73 m2eGFR AA* >60 09/27/2014 10:30 AM C DIFFICILE NAAT TNP-FORMED STOOL 10/02/2014 4:01 PM GLUCOSE 124.0 mg/dLSODIUM 135.0 mmol/LPOTASSIUM 4.60 mmol/ LCHLORIDE 99.0 mmol/LCO2 24.0 mmol/LBUN 6.0 mg/dLCREATININE 0.70 mg/dLSGOT/AST 56.0 IU/LSGPT/ALT 94.0 IU/LALK PHOS 106.0 IU/LTOTAL PROTEIN 7.50 g/dLALBUMIN 4.70 g/dLTOTAL BILI 0.40 mg/dLCALCIUM 10.40 mg/dLAGE 39 GFR NonAA 94 GFR AA 114 eGFR >60 mL/min/1.73 m2eGFR AA* >60 WBC 16.1 RBC 4.62 HGB 14.0 g/dLHCT 41.70 % MCV 90.0 fLMCH 30.30 pgMCHC 33.60 g/dLRDW SD 43 RDW CV 13.20 %MPV 11.90 fLPLT 391 NRBC# 0.00 NRBC% 0.0 %NEUT 51.30 %%LYMP 38.30 %%MONO 5.80 %%EOS 4.20 %%BASO 0.40 %#NEUT 8.25 #LYMP 6.15 #MONO 0.93 #EOS 0.67 #BASO 0.06 MANUAL DIFF SEE BELOW SEGS 53 BANDS 2 LYMPHS 32 MONOS 8 EOS 5.0 %ATYP LYMPHS FEW 10/23/2014 12:35 PM WBC 15.2 RBC 4.59 HGB 13.90 g/dLHCT 41.60 %MCV 91.0 fLMCH 30.30 pgMCHC 33.40 g/dLRDW SD 44 RDW CV 13.60 %MPV 11.10 fLPLT 375 NRBC# 0.00 NRBC% 0.0 %NEUT 59.30 %%LYMP 30.40 %%MONO 5.30 %%EOS 4.60 %%BASO 0.40 %#NEUT 9.00 #LYMP 4.61 #MONO 0.80 #EOS 0.69 #BASO 0.06 MANUAL DIFF NOT IND GLUCOSE 112.0 mg/dLSODIUM 138.0 mmol/LPOTASSIUM 4.10 mmol/LCHLORIDE 104.0 mmol/LCO2 23.0 mmol/LBUN 7.0 mg/dLCREATININE 0.70 mg/dLSGOT/AST 38.0 IU/LSGPT/ALT 60.0 IU/ LALK PHOS 85.0 IU/LTOTAL PROTEIN 8.0 g/dLALBUMIN 4.60 g/dLTOTAL BILI 0.30 mg/ dLCALCIUM 10.0 mg/dLAGE 39 GFR NonAA 94 GFR AA 114 eGFR >60 mL/min/1.73 m2eGFR AA* >60 COLOR YELLOW APPEARANCE CLEAR SPEC GRAV 1.010 pH 5.5 PROTEIN NEGATIVE GLUCOSE NEGATIVE KETONE NEGATIVE BILIRUBIN NEGATIVE BLOOD NEGATIVE NITRITE NEGATIVE LEUK SCREEN NEGATIVE MICRO INDICATED? NOT INDICATED HGB A1C 6.30 %Est Avg Glucose 134.1 mg/dLMICROALBUMIN UR <0.5 MG/DL 02/13/2015 4:38 PM Lyme IgG/IgM Ab <0.91 Lyme Disease Ab, Quant,IgM <0.80 RMSF , IgG, EIA Negative [facility] Spotted Fever,IgM 0.51 E. chaffeensis ([facility]) IgGTiter Negative titerE. chaffeensis (HME) IgMTiter Negative 04/29/2015 3:38 PM INFLUENZA A & B NO INFLUENZA A OR B DETECTED 05/20/2015 1:55 PM WBC 16.4 RBC 4.60 HGB 13.90 g/dLHCT 41.70 %MCV 91.0 fLMCH 30.20 pgMCHC 33.30 g/dLRDW SD 45 RDW CV 13.70 %MPV 11.70 fLPLT 343 NRBC# 0.00 NRBC% 0.0 %NEUT 60.70 %%LYMP 30.90 %%MONO 4.80 %%EOS 3.40 %%BASO 0.20 %#NEUT 9.96 #LYMP 5.06 #MONO 0.79 #EOS 0.55 #BASO 0.04 MANUAL DIFF NOT IND GLUCOSE 125.0 mg/dLSODIUM 140.0 mmol/LPOTASSIUM 3.90 mmol/LCHLORIDE 107.0 mmol/LCO2 22.0 mmol/LBUN 7.0 mg/dLCREATININE 1.0 mg/dLSGOT/AST 23.0 IU/LSGPT/ALT 30.0 IU/ LALK PHOS 78.0 IU/LTOTAL PROTEIN 7.10 g/dLALBUMIN 4.30 g/dLTOTAL BILI 0.40 mg/ dLCALCIUM 9.80 mg/dLAGE 40 GFR NonAA 62 GFR AA 75 eGFR >60 mL/min/1.73meGFR AA * >60 B pertussis IgG Ab 1.09 B pertussis IgM Ab <1.0 05/21/2015 12:35 PM D-DIMER QUANT <0.19 07/17/2015 11:30 AM INFLUENZA A & B NO INFLUENZA A OR B DETECTED 11/24/2015 11:50 AM WBC 18.2 RBC 4.65 HGB 14.20 g/dLHCT 43.0 %MCV 93.0 fLMCH 30.50 pgMCHC 33.0 g/dLRDW SD 44 RDW CV 13.20 %MPV 10.80 fLPLT 394 NRBC# 0.00 NRBC% 0.0 %NEUT 64.0 %%LYMP 27.80 %%MONO 4.50 %%EOS 2.70 %%BASO 0.40 %#NEUT 11.63 #LYMP 5.05 #MONO 0.81 #EOS 0.49 #BASO 0.08 MANUAL DIFF SEE BELOW SEGS 66 BANDS 2 LYMPHS 26 MONOS 2 EOS 3.0 %BASO 1.0 %GLUCOSE 151.0 mg/dLSODIUM 138.0 mmol/LPOTASSIUM 4.10 mmol/LCHLORIDE 102.0 mmol/LCO2 23.0 mmol/LBUN 7.0 mg/ dLCREATININE 0.80 mg/dLSGOT/AST 26.0 IU/LSGPT/ALT 41.0 IU/LALK PHOS 181.0 IU/ LTOTAL PROTEIN 7.70 g/dLALBUMIN 5.10 g/dLTOTAL BILI 0.40 mg/dLCALCIUM 10.50 mg/ dLAGE 40 GFR NonAA 80 GFR AA 97 eGFR >60 mL/min/1.73meGFR AA* >60 03/05/2016 11:20 AM STREP SCREEN NEGATIVE C REACTIVE PROTEIN 23.0 mg/LWBC 20.0 RBC 4.24 HGB 12.70 g/dLHCT 39.80 %MCV 94.0 fLMCH 30.0 pgMCHC 31.90 g/dLRDW SD 47 RDW CV 14.0 %MPV 11.40 fLPLT 432 NRBC# 0.00 NRBC% 0.0 %NEUT 67.30 %%LYMP 25.10 %%MONO 3.90 %%EOS 2.50 %%BASO 0.50 %#NEUT 13.44 #LYMP 5.01 #MONO 0.78 # EOS 0.50 #BASO 0.09 MANUAL DIFF SEE BELOW SEGS 62 BANDS 7 LYMPHS 24 MONOS 2 EOS 5.0 % 10/06/2016 1:32 PM STREP SCREEN NEGATIVE 11/02/2016 11:45 AM Clarity Ur clear Color Ur yellow Glucose Ur-sCnc >=1000mg/ dL Bilirub Ur Ql Strip neg Ketones Ur Ql Strip neg Sp Gr Ur Qn 1.020 Hgb Ur Ql Strip neg pH Ur-LsCnc 5.5 Prot Ur Ql Strip neg Urobilinogen Ur-mCnc 0.2 E.U../ dL Nitrite Ur Ql Strip neg WBC Est Ur Ql Strip neg 11/23/2016 10:50 AM WBC 21.9 RBC 4.30 HGB 13.0 g/dLHCT 40.0 %MCV 93.0 fLMCH 30.20 pgMCHC 32.50 g/dLRDW SD 50 RDW CV 14.80 %MPV 11.30 fLPLT 443 NRBC# 0.00 NRBC% 0.0 %NEUT 55.30 %%LYMP 37.0 %%MONO 4.40 %%EOS 1.70 %%BASO 0.30 %#NEUT 12.09 #LYMP 8.08 #MONO 0.96 #EOS 0.38 #BASO 0.07 MANUAL DIFF SEE BELOW SEGS 61 BANDS 2 LYMPHS 36 EOS 1.0 %GLUCOSE 192.0 mg/dLSODIUM 136.0 mmol/LPOTASSIUM 3.20 mmol/LCHLORIDE 103.0 mmol/LCO2 22.0 mmol/LBUN 18.0 mg/dLCREATININE 0.80 mg/ dLSGOT/AST 18.0 IU/LSGPT/ALT 21.0 IU/LALK PHOS 54.0 IU/LTOTAL PROTEIN 7.30 g/ dLALBUMIN 4.0 g/dLTOTAL BILI 0.40 mg/dLCALCIUM 9.70 mg/dLAGE 41 GFR NonAA 79 GFR AA 96 eGFR >60 mL/min/1.73meGFR AA* >60 D-DIMER QUANT <0.19 TROPONIN-I AD <0.04 ng/mL 02/23/2017 6:53 PM WBC 21.1 RBC 4.14 HGB 12.70 g/dLHCT 37.50 %MCV 91.0 fLMCH 30.70 pgMCHC 33.90 g/dLRDW SD 46 RDW CV 13.80 %MPV 11.20 fLPLT 437 NRBC# 0.04 NRBC% 0.2 %NEUT 61.90 %%LYMP 24.60 %%MONO 5.50 %%EOS 2.60 %%BASO 0.80 %#NEUT 13.12 #LYMP 5.19 #MONO 1.16 #EOS 0.54 #BASO 0.16 MANUAL DIFF SEE BELOW SEGS 60 BANDS 2 LYMPHS 29 MONOS 3 EOS 1.0 %BASO 1.0 %METAS 4 06/24/2017 11:15 AM WBC 14.2 RBC 4.38 HGB 13.50 g/dLHCT 42.20 %MCV 96.0 fLMCH 30.80 pgMCHC 32.0 g/dLRDW SD 48 RDW CV 13.60 %MPV 11.0 fLPLT 376 NRBC# 0.00 NRBC % 0.0 %NEUT 65.30 %%LYMP 25.50 %%MONO 4.90 %%EOS 3.0 %%BASO 0.50 %#NEUT 9.27 # LYMP 3.63 #MONO 0.69 #EOS 0.43 #BASO 0.07 MANUAL DIFF NOT IND GLUCOSE 376.0 mg/ dLSODIUM 134.0 mmol/LPOTASSIUM 4.30 mmol/LCHLORIDE 100.0 mmol/LCO2 22.0 mmol/ LBUN 10.0 mg/dLCREATININE 0.90 mg/dLSGOT/AST 21.0 IU/LSGPT/ALT 29.0 IU/LALK PHOS 104.0 IU/LTOTAL PROTEIN 8.10 g/dLALBUMIN 4.90 g/dLTOTAL BILI 0.30 mg/ dLCALCIUM 10.0 mg/dLAGE 42 GFR NonAA 69 GFR AA 84 eGFR >60 mL/min/1.73meGFR AA * >60 COLOR YELLOW APPEARANCE CLEAR SPEC GRAV 1.010 pH 5.0 PROTEIN NEGATIVE GLUCOSE >=1000 mg/dLKETONE NEGATIVE BILIRUBIN NEGATIVE BLOOD NEGATIVE NITRITE NEGATIVE LEUK SCREEN NEGATIVE MICRO INDICATED? SEE BELOW WBC/HPF RARE RBC/HPF NEGATIVE CASTS/LPF NEGATIVE /LPFCRYSTALS NEGATIVE MUCOUS THRDS NEGATIVE BACTERIA NEGATIVE EPITH CELLS FEW SQUAMOUS /HPFTRICHOMONAS NEGATIVE YEAST FEW BUDDING CULT SET UP? NO SEDRATE 13.0 mm/hr 11/02/2017 3:38 PM GLUCOSE 190.0 mg/dLSODIUM 138.0 mmol/LPOTASSIUM 3.60 mmol/ LCHLORIDE 103.0 mmol/LCO2 21.0 mmol/LBUN 8.0 mg/dLCREATININE 0.80 mg/dLCALCIUM 10.50 mg/dLAGE 42 GFR NonAA 79 GFR AA 96 eGFR 79 eGFR AA* >60 WBC 15.5 RBC 3.92 HGB 12.40 g/dLHCT 37.50 %MCV 96.0 fLMCH 31.60 pgMCHC 33.10 g/dLRDW SD 47 RDW CV 13.30 %MPV 11.10 fLPLT 485 NRBC# 0.00 NRBC% 0.0 %NEUT 63.20 %%LYMP 29.10 %%MONO 4.10 %%EOS 2.30 %%BASO 0.50 %#NEUT 9.82 #LYMP 4.52 #MONO 0.64 #EOS 0.35 #BASO 0.08 MANUAL DIFF NOT IND History Of Immunizations Name Date Admin Mfg Name Mfg Code Trade Name Lot# Route Inj Vis Given Vis Pub CVX Influenza 03/30/2011 Not Entered NE Not Entered Not Entered Not Entered 03/31/2011 05/30/2017 141 Influenza 04/24/2014 [employer] FLUZONE [id number] Intramuscular Left Upper Arm 02/27/2014 01/15/2014 141 Influenza 02/13/2015 [employer] FLUZONE [id number] Intramuscular Left Deltoid 02/13/2015 01/03/2015 140 Tdap 06/06/2015 [employer] SKB BOOSTRIX [id number] Intramuscular Left Deltoid 06/06/2015 07/23/2014 115 Influenza 03/18/[address] [facility] FLUZONE [id number] Intramuscular Left Deltoid 03/17/2016 01/03/2015 141 History of Past Illness Name Date of Onset Comments Fibromyalgia interstial cysitis Irritable bowel syndrome Insomnia, Migraine Gastroesophageal Reflux Seasonal Allergies Thoracic Spine Pain Bipolar disorder, unspecified Anxiety Anemia Cancer cervical Digestive Headache Gonorrhea Pelvic Inflammatory Disease Urinary Frequency Nov 10 2009 2:16PM Cystitis, Chronic Interstitial Nov 10 2009 2:16PM Dysuria Nov 11 2009 2:42PM Lumbago Nov 17 2009 9:14AM Gynecological Exam Nov 26 2009 3:26PM Endometriosis Nov 26 2009 3:26PM Pelvic Inflammatory Disease Nov 26 2009 3:26PM Pelvic Pain Nov 26 2009 3:26PM Occipital Neuralgia Dec 10 2009 4:08PM Lumbago Dec 10 2009 3:34PM Menorrhagia Dec 16 2009 3:35PM Pelvic Pain Dec 16 2009 3:35PM AARON with liver dysfunction Hypertension Hyperlipidemia, unspecified Bronchitis Jan 29 2010 10:58AM Sinusitis, Acute Jan 29 2010 10:58AM Otitis Media, Acute Jan 29 2010 10:58AM Obstructive Sleep Apnea 08/10/2013 Postoperative Examination Following Surgery Feb 04 2010 2:46PM Menopausal Syndrome Feb 04 2010 2:46PM Upper Respiratory Infection Feb 06 2010 12:42PM Hyperlipidemia 12/07/2013 Elevated liver enzymes 12/07/2013 Menopausal Syndrome 12/07/2013 Fatty liver disease, nonalcoholic 01/08/2014 Osteoporosis Vaginal lesion 02/13/2014 Lumbago Mar 18 2010 3:20PM Bursitis Mar 18 2010 3:20PM Trochanteric Bursitis Mar 18 2010 4:08PM Lumbago Jun 03 2010 9:52AM Bursitis Jun 03 2010 9:52AM Myofascial pain Jun 03 2010 10:20AM Spinal enthesopathy Jun 03 2010 10:20AM Neuralgia Jun 18 2010 2:29PM Muscle Spasm Jun 18 2010 2:29PM Lumbago Jul 06 2010 8:33AM Bursitis Jul 06 2010 8:33AM Allergic rhinitis, unspecified allergic rhinitis type 06/09/2015 Myofascial pain Jul 23 2010 10:30AM Spinal enthesopathy Jul 23 2010 10:30AM Lumbago Jul 23 2010 9:49AM Bursitis Jul 23 2010 9:49AM Lumbago Aug 26 2010 9:52AM Lumbago Sep 02 2010 2:01PM Myofascial pain Sep 30 2010 3:06PM Occipital Neuralgia Oct 01 2010 1:44PM Abdominal Pain, Generalized Nov 17 2010 2:25PM Bronchitis, Acute Nov 17 2010 2:25PM Impetigo Nov 17 2010 2:25PM Sinusitis, Acute Nov 17 2010 2:25PM Abdominal Pain, LLQ Nov 24 2010 10:09AM Routine gynecological examination Dec 02 2010 2:23PM Lumbago Dec 16 2010 2:48PM Lumbago Jan 19 2011 10:54AM Muscle Spasm Jan 19 2011 10:54AM Bronchiolitis, Viral Feb 17 2011 9:45AM Low Back Pain Mar 02 2011 2:54PM Myalgia Mar 02 2011 2:54PM Bronchitis, Acute Apr 28 2011 9:13AM Bilateral Occipital Neuralgia May 11 2011 1:32PM Constipation May 14 2011 10:32AM Fibromyalgia May 14 2011 10:32AM Abdominal Pain Jun 15 2011 1:50PM Lumbago b 6 2011 1:58PM Muscle Spasm b 6 2011 1:58PM Headache Feb 9 2011 1:38PM Heart Sound Abnormality Jun 9 2011 1:38PM Upper Respiratory Infections Aug 02 2011 2:49PM Bipolar Disorder Aug 18 2011 10:42AM Anxiety Disorder Aug 18 2011 10:42AM Insomnia Aug 18 2011 10:42AM Tobacco Abuse Aug 18 2011 10:42AM Pain in joint; Hip Sep 27 2011 3:16PM Abdominal Pain Oct 14 2011 10:36AM Constipation Oct 14 2011 10:36AM Fibromyalgia Nov 02 2011 2:50PM Upper Respiratory Infections Dec 23 2011 2:50PM Upper Respiratory Infections Feb 09 2012 10:58AM Bilateral Occipital Neuralgia Mar 15 2012 1:10PM Sprain/Strain Improving Mar 15 2012 2:30PM Insomnia Mar 30 2012 1:38PM Hyperlipidemia, unspecified Apr 11 2012 2:26PM Fatigue Apr 11 2012 2:26PM Benign nevi, multiple Apr 11 2012 2:26PM Insomnia Apr 11 2012 2:26PM Gastritis Apr 11 2012 2:26PM Benign neoplasm of skin, multiple Apr 13 2012 10:20AM Insomnia Apr 28 2012 2:08PM Nausea With Vomiting Apr 28 2012 2:08PM Insomnia May 03 2012 10:53AM Nausea With Vomiting May 03 2012 10:53AM Lumbago Jun 06 2012 1:31PM Muscle Spasm Jun 06 2012 1:31PM Cough Jun 20 2012 3:58PM Sinusitis, Acute Jun 20 2012 3:58PM Upper Respiratory Infections Jun 20 2012 3:58PM Muscle Spasm Jun 21 2012 11:20AM SI joint pain Jun 21 2012 11:20AM Insomnia Jul 11 2012 1:59PM Tobacco Abuse Jul 11 2012 1:59PM Upper Respiratory Infections Jul 28 2012 10:25AM Lumbago Sep 06 2012 8:08AM Bilateral greater occipital neuralgia Sep 06 2012 8:08AM Bilateral Occipital Neuralgia Sep 06 2012 8:32AM Right rib pain Sep 06 2012 2:15PM Allergic Rhinitis Sep 26 2012 3:31PM Headache Oct 03 2012 10:48AM Dysuria Oct 03 2012 10:48AM Upper Respiratory Infections Oct 10 2012 10:47AM Occipital Neuralgia Oct 19 2012 3:50PM Headache Oct 19 2012 3:50PM Lumbago Oct 19 2012 3:50PM Bilateral greater occipital neuralgia Oct 19 2012 3:50PM Hypertension Oct 31 2012 1:42PM Tachycardia Oct 31 2012 1:42PM Cough Nov 03 2012 12:22PM Elevated liver enzymes Nov 03 2012 12:22PM Abdominal Pain Nov 07 2012 1:53PM Hypertension Nov 07 2012 1:53PM Tachycardia Nov 07 2012 1:53PM Bilateral Occipital Neuralgia Nov 08 2012 4:05PM Bilateral greater occipital neuralgia Nov 08 2012 3:15PM Fatty Liver Disease, nonalcoholic Nov 14 2012 1:15PM Abdominal Pain Nov 27 2012 1:20PM Leukocytosis Nov 27 2012 1:20PM Fatty Liver Disease, nonalcoholic Nov 27 2012 1:20PM Fatigue Nov 27 2012 1:20PM Tachycardia Nov 27 2012 1:20PM Neck Pain Dec 29 2012 10:08AM Allergic rhinitis; due to pollen Jan 05 2013 11:36AM Allergic rhinitis; due to other allergen Jan 05 2013 11:36AM Palpitations Jan 11 2013 2:39PM Allergic rhinitis; due to pollen Jan 11 2013 3:05PM Allergic rhinitis; due to other allergen Jan 11 2013 3:05PM Allergic rhinitis; due to pollen Jan 18 2013 1:01PM Allergic rhinitis; due to other allergen Jan 18 2013 1:01PM Routine gynecological examination Jan 22 2013 2:48PM Allergic rhinitis; due to pollen Jan 26 2013 11:13AM Allergic rhinitis; due to other allergen Jan 26 2013 11:13AM Bronchitis, Acute Jan 25 2013 11:02AM Allergic rhinitis; due to pollen Feb 01 2013 3:13PM Allergic rhinitis; due to other allergen Feb 01 2013 3:13PM Allergic rhinitis; due to pollen Feb 08 2013 3:41PM Allergic rhinitis; due to other allergen Feb 08 2013 3:41PM Upper Respiratory Infection Feb 09 2013 10:23AM Allergic rhinitis; due to pollen Feb 16 2013 11:17AM Allergic rhinitis; due to other allergen Feb 16 2013 11:17AM Bilateral Occipital Neuralgia Feb 19 2013 1:48PM Allergic rhinitis; due to pollen Mar 14 2013 1:33PM Allergic rhinitis; due to other allergen Mar 14 2013 1:33PM Headache Mar 20 2013 1:45PM Abdominal Pain Mar 21 2013 2:00PM Nausea With Vomiting Mar 21 2013 2:00PM Diarrhea Mar 21 2013 2:00PM Glycosuria Mar 22 2013 11:05AM Abdominal Pain Mar 28 2013 7:35PM Headache Apr 03 2013 2:25PM Cervicalgia Apr 03 2013 2:25PM Allergic rhinitis; due to pollen Apr 03 2013 4:14PM Allergic rhinitis; due to other allergen Apr 03 2013 4:14PM Dysuria Apr 17 2013 11:36AM Allergic rhinitis; due to pollen Apr 25 2013 1:55PM Allergic rhinitis; due to other allergen Apr 25 2013 1:55PM Allergic rhinitis; due to pollen May 08 2013 4:06PM Allergic rhinitis; due to other allergen May 08 2013 4:06PM Rib Fracture, Closed May 09 2013 2:58PM Cough May 09 2013 2:58PM Sinusitis, Acute May 16 2013 1:51PM Headache May 18 2013 8:44AM Cervicalgia May 18 2013 8:44AM Allergic rhinitis; due to pollen May 31 2013 2:54PM Allergic rhinitis; due to other allergen May 31 2013 2:54PM Allergic rhinitis; due to pollen Jun 08 2013 11:50AM Allergic rhinitis; due to other allergen Jun 08 2013 11:50AM Allergic rhinitis; due to pollen Jun 14 2013 3:04PM Allergic rhinitis; due to other allergen Jun 14 2013 3:04PM Allergic rhinitis; due to pollen Jun 28 2013 2:54PM Allergic rhinitis; due to other allergen Jun 28 2013 2:54PM Chest Pain Jul 12 2013 3:51PM Shortness Of Breath Jul 12 2013 3:51PM Left 8th Rib Fracture, Closed Jul 18 2013 3:57PM Cough Jul 25 2013 4:03PM Obstructive Sleep Apnea Aug 10 2013 11:08AM Anxiety Disorder Aug 10 2013 11:08AM Obstructive Sleep Apnea Aug 23 2013 2:03PM Anemia Aug 23 2013 2:03PM Bipolar disorder, unspecified Aug 23 2013 2:03PM Gastroesophageal Reflux Aug 23 2013 2:03PM Irritable bowel syndrome Aug 23 2013 2:03PM Pelvic Inflammatory Disease Aug 23 2013 2:03PM Seasonal Allergies Aug 23 2013 2:03PM Lower leg pain-Left Aug 31 2013 10:13AM Fibular Fracture, Closed Aug 31 2013 10:13AM Allergic rhinitis; due to pollen Sep 04 2013 5:11PM Allergic rhinitis; due to other allergen Sep 04 2013 5:11PM Fibular Fracture, Closed Sep 05 2013 7:31PM Sinusitis, Acute Sep 14 2013 10:10AM Allergic rhinitis; due to pollen Sep 20 2013 4:19PM Allergic rhinitis; due to other allergen Sep 20 2013 4:19PM Fatigue Oct 02 2013 4:09PM Hypertension Oct 02 2013 4:09PM Obstructive Sleep Apnea Oct 02 2013 4:09PM Anemia Oct 02 2013 4:09PM Bipolar disorder, unspecified Oct 02 2013 4:09PM Fibromyalgia Oct 02 2013 4:09PM Gastroesophageal Reflux Oct 02 2013 4:09PM Headache Oct 02 2013 4:09PM Insomnia, Oct 02 2013 4:09PM Irritable Bowel Syndrome Oct 02 2013 4:09PM Migraine Oct 02 2013 4:09PM Pelvic Inflammatory Disease Oct 02 2013 4:09PM Seasonal Allergies Oct 02 2013 4:09PM Thoracic Spine Pain Oct 02 2013 4:09PM Elevated liver enzymes Oct 02 2013 4:09PM Dysphagia Oct 02 2013 4:09PM Nausea Oct 02 2013 4:09PM Hyperglycemia Oct 02 2013 4:09PM Allergic rhinitis; due to pollen Oct 02 2013 4:29PM Allergic rhinitis; due to other allergen Oct 02 2013 4:29PM Bilateral rib pain Oct 02 2013 4:09PM Obstructive sleep apnea (adult) Oct 12 2013 9:36AM Insomnia Oct 12 2013 9:36AM Allergic rhinitis; due to pollen Oct 17 2013 1:52PM Allergic rhinitis; due to other allergen Oct 17 2013 1:52PM Bronchitis, Acute Oct 23 2013 2:22PM Hand pain, right Nov 21 2013 3:09PM Obstructive Sleep Apnea Dec 05 2013 9:44AM Anemia Dec 05 2013 9:44AM Bipolar disorder, unspecified Dec 05 2013 9:44AM Anxiety Dec 05 2013 9:44AM Gastroesophageal Reflux Dec 05 2013 9:44AM Hyperlipidemia Dec 05 2013 9:44AM Elevated liver enzymes Dec 05 2013 9:44AM Menopausal syndrome Dec 05 2013 9:44AM Elevated white blood cell count Dec 12 2013 4:52PM Back Pain Jan 08 2014 2:26PM Diabetes Mellitus, Type II Jan 08 2014 2:26PM Hyperlipidemia Jan 08 2014 2:26PM Obstructive Sleep Apnea Jan 08 2014 2:26PM Anemia Jan 08 2014 2:26PM Anxiety Jan 08 2014 2:26PM Gastroesophageal Reflux Jan 08 2014 2:26PM Fatty liver disease, nonalcoholic Jan 08 2014 2:26PM Osteoporosis Jan 10 2014 4:11PM Costochondritis Jan 16 2014 2:29PM Oral herpes simplex infection Jan 16 2014 2:29PM Upper respiratory infection Jan 24 2014 5:07PM Diabetes Mellitus, Type II Jan 30 2014 1:58PM Allergic rhinitis Jan 30 2014 1:58PM Hernia, hiatal Jan 30 2014 1:58PM Bronchitis, Acute Feb 03 2014 2:20PM Viral respiratory illness Feb 03 2014 2:20PM Painful rib Feb 03 2014 2:20PM Myofascial pain Feb 07 2014 3:18PM Fatty liver disease, nonalcoholic Feb 07 2014 3:18PM Hyperlipidemia Feb 07 2014 3:18PM Bipolar disorder, unspecified Feb 07 2014 3:18PM Anxiety Feb 07 2014 3:18PM Fibromyalgia Feb 07 2014 3:18PM Gastroesophageal Reflux Feb 07 2014 3:18PM Headache Feb 07 2014 3:18PM Irritable Bowel Syndrome Feb 07 2014 3:18PM Seasonal Allergies Feb 07 2014 3:18PM Cystitis, interstitial Feb 07 2014 3:18PM Dyspareunia Feb 13 2014 1:51PM Vaginal Lesion Feb 13 2014 1:51PM Diabetes Mellitus, Type II Feb 25 2014 4:17PM Generalized weakness Feb 25 2014 4:23PM Hyperlipidemia, Mixed 2014 3:24PM Obesity 2014 3:24PM Hyperkalemia 2014 3:24PM Hypercalcemia 2014 3:24PM Leukocytosis 2014 3:24PM Palpitations 2014 3:24PM Elevated liver enzymes Mar 15 2014 10:33AM Fatty liver disease, nonalcoholic Mar 15 2014 10:33AM Menopausal Syndrome Mar 15 2014 10:33AM Bipolar disorder, unspecified Mar 15 2014 10:33AM Anxiety Mar 15 2014 10:33AM Fibromyalgia Mar 15 2014 10:33AM Gastroesophageal Reflux Mar 15 2014 10:33AM Headache Mar 15 2014 10:33AM Insomnia, Mar 15 2014 10:33AM Irritable bowel syndrome Mar 15 2014 10:33AM Seasonal Allergies Mar 15 2014 10:33AM Thoracic Spine Pain Mar 15 2014 10:33AM Upper Respiratory Infection Mar 29 2014 5:52PM Allergic rhinitis; due to other allergen Mar 29 2014 5:56PM Maxillary Sinusitis, Acute Mar 29 2014 5:29PM Acute Pharyngitis Mar 29 2014 5:29PM Fever, unspecified Mar 29 2014 5:29PM Itching Apr 20 2014 9:44AM Contact dermatitis Apr 20 2014 9:44AM Flu Apr 24 2014 3:35PM Fatigue May 27 2014 2:25PM Hypothyroidism, Acquired May 27 2014 2:25PM Fatty liver disease, nonalcoholic May 27 2014 2:25PM Hyperlipidemia May 27 2014 2:25PM Menopausal Syndrome May 27 2014 2:25PM Bipolar disorder, unspecified May 27 2014 2:25PM Anxiety May 27 2014 2:25PM Gastroesophageal Reflux May 27 2014 2:25PM Headache May 27 2014 2:25PM Insomnia, May 27 2014 2:25PM Irritable Bowel Syndrome May 27 2014 2:25PM Seasonal Allergies May 27 2014 2:25PM Osteomalacia May 27 2014 2:25PM Chronic nausea May 27 2014 2:25PM Tobacco abuse May 27 2014 2:25PM Upper Respiratory Infections Jun 06 2014 11:01AM Cough Jun 12 2014 12:34PM Upper Respiratory Infections Jun 12 2014 10:55AM Bronchitis, Acute Jun 12 2014 10:55AM Painful rib Jun 12 2014 10:55AM Tobacco abuse Jun 12 2014 10:55AM Bronchitis, Acute Jun 25 2014 11:13AM Cough Jun 27 2014 6:10PM Ankle pain, left Jul 01 2014 3:51PM Tendon dysfunction Jul 01 2014 3:51PM Osteoporosis Jul 01 2014 3:51PM Elevated liver enzymes Jul 01 2014 3:51PM Sternal pain Jul 11 2014 4:22PM Right Otitis Media, Acute Jul 17 2014 10:04AM Asthma Jul 17 2014 10:04AM Headache Jul 18 2014 4:46PM Fall as cause of accidental injury in home as place of occurrence, initial encounter Jul 18 2014 4:46PM Ankle instability, left Jul 23 2014 11:30AM Ankle pain Jul 23 2014 11:30AM History of fall Jul 23 2014 11:30AM Headache Jul 23 2014 11:30AM Osteoporosis Jul 25 2014 2:09PM Post concussion syndrome Jul 29 2014 3:46PM Fall Jul 29 2014 3:46PM Spinal stenosis Jul 29 2014 3:46PM Ankle pain, chronic, left Jul 11 2014 4:22PM Vertigo Jul 11 2014 4:22PM Eustachian tube dysfunction Aug 01 2014 3:27PM Abdominal Pain Aug 28 2014 3:04PM Diarrhea Aug 28 2014 3:04PM Bipolar disorder, unspecified Sep 04 2014 2:15PM Anxiety Sep 04 2014 2:15PM Fibromyalgia Sep 04 2014 2:15PM Headache Sep 04 2014 2:15PM Irritable bowel syndrome Sep 04 2014 2:15PM Seasonal Allergies Sep 04 2014 2:15PM Thoracic Spine Pain Sep 04 2014 2:15PM Osteoporosis Sep 04 2014 2:15PM Dyspnea on exertion Sep 04 2014 2:15PM RSD (reflex sympathetic dystrophy) Sep 04 2014 2:15PM Allergic rhinitis Sep 17 2014 11:11AM Epigastric pain Sep 25 2014 2:47PM Diarrhea Sep 25 2014 2:47PM Diarrhea Oct 01 2014 11:17AM Elevated liver enzymes Oct 18 2014 11:53AM Fatty liver disease, nonalcoholic Oct 18 2014 11:53AM Hyperlipidemia Oct 18 2014 11:53AM Bipolar disorder, unspecified Oct 18 2014 11:53AM Anxiety Oct 18 2014 11:53AM Fibromyalgia Oct 18 2014 11:53AM Gastroesophageal Reflux Oct 18 2014 11:53AM Insomnia, Oct 18 2014 11:53AM Irritable bowel syndrome Oct 18 2014 11:53AM Migraine Oct 18 2014 11:53AM Pelvic Inflammatory Disease Oct 18 2014 11:53AM Seasonal Allergies Oct 18 2014 11:53AM Thoracic Spine Pain Oct 18 2014 11:53AM Osteoporosis Oct 18 2014 11:53AM Nausea & vomiting Oct 18 2014 11:53AM Abnormal mental state Oct 18 2014 11:53AM Abnormal blood sugar Oct 18 2014 11:53AM Fatty liver disease, nonalcoholic Oct 09 2014 1:54PM Hyperlipidemia Oct 09 2014 1:54PM Menopausal Syndrome Oct 09 2014 1:54PM Bipolar disorder, unspecified Oct 09 2014 1:54PM Anxiety Oct 09 2014 1:54PM Fibromyalgia Oct 09 2014 1:54PM Gastroesophageal Reflux Oct 09 2014 1:54PM Headache Oct 09 2014 1:54PM Insomnia, Oct 09 2014 1:54PM Irritable bowel syndrome Oct 09 2014 1:54PM Migraine Oct 09 2014 1:54PM Pelvic Inflammatory Disease Oct 09 2014 1:54PM Seasonal Allergies Oct 09 2014 1:54PM Thoracic Spine Pain Oct 09 2014 1:54PM Osteoporosis Oct 09 2014 1:54PM Osteoarthritis Nov 14 2014 4:01PM Elevated liver enzymes Nov 14 2014 4:01PM Fatty liver disease, nonalcoholic Nov 14 2014 4:01PM Hyperlipidemia Nov 14 2014 4:01PM Menopausal Syndrome Nov 14 2014 4:01PM Bipolar disorder, unspecified Nov 14 2014 4:01PM Anxiety Nov 14 2014 4:01PM Gastroesophageal Reflux Nov 14 2014 4:01PM Headache Nov 14 2014 4:01PM Insomnia, Nov 14 2014 4:01PM Irritable bowel syndrome Nov 14 2014 4:01PM Migraine Nov 14 2014 4:01PM Seasonal Allergies Nov 14 2014 4:01PM Thoracic Spine Pain Nov 14 2014 4:01PM Osteoporosis Nov 14 2014 4:01PM Tendinopathy Nov 14 2014 4:01PM Seizure Oct 18 2014 11:53AM Acute Hand pain, left Nov 27 2014 10:00AM Elevated liver enzymes Dec 13 2014 11:08AM Fatty liver disease, nonalcoholic Dec 13 2014 11:08AM Hyperlipidemia Dec 13 2014 11:08AM Menopausal Syndrome Dec 13 2014 11:08AM Vaginal lesion Dec 13 2014 11:08AM Bipolar disorder, unspecified Dec 13 2014 11:08AM Anxiety Dec 13 2014 11:08AM Fibromyalgia Dec 13 2014 11:08AM Gastroesophageal Reflux Dec 13 2014 11:08AM Headache Dec 13 2014 11:08AM Insomnia, Dec 13 2014 11:08AM Irritable bowel syndrome Dec 13 2014 11:08AM Migraine Dec 13 2014 11:08AM Pelvic Inflammatory Disease Dec 13 2014 11:08AM Seasonal Allergies Dec 13 2014 11:08AM Thoracic Spine Pain Dec 13 2014 11:08AM Osteoporosis Dec 13 2014 11:08AM Ankle pain Dec 13 2014 11:08AM Heel pain Dec 13 2014 11:08AM Right ear pain Jan 01 2015 2:37PM Gynecological Exam Jan 08 2015 3:25PM Elevated liver enzymes Jan 13 2015 4:34PM Fatty liver disease, nonalcoholic Jan 13 2015 4:34PM Hyperlipidemia Jan 13 2015 4:34PM Menopausal Syndrome Jan 13 2015 4:34PM Bipolar disorder, unspecified Jan 13 2015 4:34PM Anxiety Jan 13 2015 4:34PM Fibromyalgia Jan 13 2015 4:34PM Gastroesophageal Reflux Jan 13 2015 4:34PM Headache Jan 13 2015 4:34PM Insomnia, Jan 13 2015 4:34PM Irritable bowel syndrome Jan 13 2015 4:34PM Pelvic Inflammatory Disease Jan 13 2015 4:34PM Seasonal Allergies Jan 13 2015 4:34PM Thoracic Spine Pain Jan 13 2015 4:34PM Osteoporosis Jan 13 2015 4:34PM Ear pain, bilateral Jan 15 2015 10:56AM Osteoporosis Jan 21 2015 3:43PM Flu Vaccine Feb 13 2015 4:28PM Lichen sclerosus of female genitalia Feb 13 2015 3:38PM Viral Gastroenteritis Feb 26 2015 11:24AM Lumbar strain, initial encounter Mar 12 2015 11:39AM Neck pain Mar 21 2015 11:15AM Fall from chair, initial encounter Mar 21 2015 11:15AM Osteoarthritis Mar 21 2015 11:15AM Edema Mar 21 2015 11:15AM Radicular pain of both lower extremities Mar 21 2015 11:15AM Acute URI Apr 29 2015 3:09PM Left lower quadrant pain Apr 29 2015 3:09PM Non-intractable vomiting with nausea, vomiting of unspecified type Apr 29 2015 3:09PM Acute URI May 06 2015 11:22AM Walking pneumonia May 06 2015 11:22AM Dysphagia May 09 2015 10:50AM Pyloric stenosis May 09 2015 10:50AM Cough May 20 2015 1:36PM Acute frontal sinusitis, recurrence not specified May 20 2015 1:36PM Cough May 20 2015 3:58PM Right foot pain May 26 2015 10:22AM Fracture of toe of right foot May 26 2015 10:22AM Osteoporosis Jun 02 2015 4:29PM Frequent fractures of bone Jun 02 2015 4:29PM Nondisplaced fracture of proximal phalanx of lesser toe of right foot with delayed healing, subsequent encounter Jun 02 2015 3:08PM Osteoporosis Jun 02 2015 3:08PM Acid Reflux Jun 06 2015 10:08AM Osteoarthritis Jun 06 2015 10:08AM Foot fracture, right, with delayed healing, subsequent encounter Jun 06 2015 10:08AM Non-intractable vomiting without nausea, vomiting of unspecified type Jun 06 2015 10:08AM Osteoporosis Jun 06 2015 10:08AM Chronic pain of lower extremity, right Jun 06 2015 10:08AM Adacel Jun 06 2015 11:31AM Allergic rhinitis, unspecified allergic rhinitis type Jun 06 2015 9:14AM Acute upper respiratory infection Jul 15 2015 9:01AM Fever Jul 17 2015 9:50AM Cough Jul 17 2015 9:50AM Pelvic Pain Jul 28 2015 12:10PM Intractable migraine without aura and with status migrainosus Sep 02 2015 2: 14PM Migraine Sep 01 2015 10:54AM Osteoporosis Sep 01 2015 10:54AM Neck pain, chronic Sep 01 2015 10:54AM Elevated alkaline phosphatase level Sep 01 2015 10:54AM Mild persistent asthma without complication Sep 01 2015 10:54AM Intractable migraine with aura with status migrainosus Sep 16 2015 10:53AM Osteogenesis imperfecta Sep 16 2015 10:53AM Fibromyalgia Sep 23 2015 2:39PM Chronic back pain Sep 23 2015 2:39PM Osteoporosis Jul 04 2015 11:14AM Polyarthralgia Jul 04 2015 11:14AM Primary osteoarthritis of both hips Jul 04 2015 11:14AM Acid Reflux May 08 2015 4:18PM Nausea May 08 2015 4:18PM Osteoporosis May 08 2015 4:18PM Bone pain May 08 2015 4:18PM AARON (nonalcoholic steatohepatitis) May 08 2015 4:18PM IBS (irritable bowel syndrome) May 08 2015 4:18PM Lichen sclerosus May 08 2015 4:18PM Symphysis pubis disruption, sequela Jul 30 2015 2:38PM Tail bone pain Jul 30 2015 2:38PM Allergic conjunctivitis, left Oct 20 2015 2:10PM Upper respiratory tract infection, unspecified type Nov 03 2015 9:29AM Chest pain Nov 13 2015 2:18PM Cough Nov 24 2015 11:28AM Acute upper respiratory infection Nov 24 2015 11:28AM Abdominal Pain Dec 16 2015 11:45AM BRBPR (bright red blood per rectum) Dec 16 2015 11:45AM Osteoarthritis Nov 18 2015 1:41PM Osteoporosis Nov 18 2015 1:41PM Lichen sclerosus Nov 18 2015 1:41PM Osteoarthritis Jan 16 2016 10:58AM Osteoporosis Jan 16 2016 10:58AM Palpitations Jan 16 2016 10:58AM Anxiety about health Jan 16 2016 10:58AM Heart palpitations Jan 21 2016 4:43PM Allergic contact dermatitis due to adhesives Feb 14 2016 11:33AM Neck pain Mar 05 2016 10:52AM Fever in other diseases Mar 05 2016 10:52AM Sore throat Mar 05 2016 10:52AM Acute upper respiratory infection Mar 05 2016 10:52AM Acid Reflux Mar 17 2016 10:49AM Allergic Rhinitis Mar 17 2016 10:49AM Back Pain Mar 17 2016 10:49AM Diabetes Mellitus, Type II Mar 17 2016 10:49AM Fatigue Mar 17 2016 10:49AM Hyperlipidemia, Mixed Mar 17 2016 10:49AM Hypertension Mar 17 2016 10:49AM Osteoarthritis Mar 17 2016 10:49AM Peripheral Neuropathy Mar 17 2016 10:49AM Mild intermittent asthma without complication Mar 17 2016 10:49AM Flu Vaccine Mar 18 2016 11:58AM Cough Mar 26 2016 5:25PM Seasonal allergic rhinitis, unspecified allergic rhinitis trigger Mar 26 2016 5:25PM Left lower quadrant pain Mar 26 2016 5:25PM Atypical chest pain Mar 17 2016 10:49AM Generalized anxiety disorder Mar 17 2016 10:49AM Gastroenteritis and colitis, viral Mar 26 2016 5:25PM Encounter for screening mammogram for breast cancer Apr 02 2016 11:40AM Lichen sclerosus of female genitalia Apr 02 2016 11:15AM Disturbance in affect Feb 16 2016 2:38PM Disturbance of skin sensation Feb 16 2016 2:38PM Seasonal allergic rhinitis due to other allergic trigger Apr 13 2016 9:43AM Seasonal allergies Apr 16 2016 9:20AM Acute midline low back pain without sciatica Apr 26 2016 10:26AM Acute non-recurrent maxillary sinusitis Apr 26 2016 10:26AM Pneumonia of right lower lobe due to infectious organism May 03 2016 3:43PM Diarrhea May 03 2016 3:43PM Cough May 13 2016 3:12PM Mild intermittent asthma without complication May 13 2016 3:12PM Tobacco dependence May 13 2016 3:12PM Osteoporosis Apr 02 2016 10:08AM Hypoparathyroidism Apr 02 2016 10:08AM Chronic pain syndrome Apr 02 2016 10:08AM Diabetes Mellitus, Type II Apr 14 2016 1:38PM Osteoporosis Apr 14 2016 1:38PM Subacute maxillary sinusitis Apr 14 2016 1:38PM Hormone replacement therapy Apr 14 2016 1:38PM Tobacco dependence Apr 14 2016 1:38PM Tobacco dependence May 03 2016 3:43PM Insomnia May 03 2016 3:43PM Spinal stenosis, cervical region Jun 04 2016 11:05AM Acute non-recurrent frontal sinusitis Jun 07 2016 10:38AM Acute upper respiratory infection Jun 18 2016 8:49AM Back Pain Jun 04 2016 11:05AM Lower extremity pain, central, left Jun 04 2016 11:05AM Weakness of left lower extremity Jun 04 2016 11:05AM Recurrent pneumonia Jul 06 2016 10:48AM Cough Jul 06 2016 10:48AM Otitis externa Jul 06 2016 10:48AM Bulging of cervical intervertebral disc Jul 09 2016 3:50PM Cervical spinal stenosis Jul 09 2016 3:50PM Lumbago Jul 09 2016 3:25PM Stenosis, cervical spine Jul 09 2016 3:25PM Disc disorder of cervical region Jul 09 2016 3:25PM Cervicalgia Jul 09 2016 3:25PM Osteoporosis Jul 16 2016 10:32AM Lumbago Aug 09 2016 8:51AM Bulging of cervical intervertebral disc Aug 09 2016 9:03AM Cervical stenosis of spine Aug 09 2016 9:03AM Lumbar radiculitis Aug 27 2016 9:35AM Blurry vision, bilateral Sep 09 2016 8:52AM Intractable acute post-traumatic headache Sep 09 2016 8:52AM Head injury, initial encounter Sep 09 2016 8:52AM Nystagmus Sep 09 2016 8:52AM Headache Sep 09 2016 11:29AM Dizziness Sep 09 2016 11:29AM Diabetes Mellitus, Type II Sep 22 2016 10:05AM Hyperlipidemia, Mixed Sep 22 2016 10:05AM Hypertension Sep 22 2016 10:05AM Hypomagnesemia Sep 22 2016 10:05AM Osteoporosis Sep 22 2016 10:05AM Polypharmacy Sep 22 2016 10:05AM Hyperlipidemia, unspecified Sep 24 2016 8:48AM Osteoporosis Aug 26 2016 3:09PM Peripheral Neuropathy Aug 26 2016 3:09PM Osteogenesis imperfecta Aug 26 2016 3:09PM Chronic pain syndrome Aug 26 2016 3:09PM Anxiety about health Aug 26 2016 3:09PM Sore throat Oct 06 2016 11:45AM Seasonal allergic rhinitis due to other allergic trigger Oct 06 2016 11:45AM Back Pain Nov 02 2016 10:33AM Polyuria Nov 02 2016 10:33AM Polyuria Nov 02 2016 11:45AM Stenosis, cervical spine Nov 05 2016 3:20PM Cervicalgia Nov 05 2016 3:20PM Disc disorder of cervical region Nov 05 2016 3:20PM Chronic obstructive pulmonary disease with acute exacerbation Nov 17 2016 10: 34AM Cough Nov 23 2016 10:06AM Fever, unspecified fever cause Nov 23 2016 10:06AM Shortness of breath on exertion Nov 23 2016 10:06AM Other chest pain Nov 23 2016 10:06AM Acid Reflux Dec 02 2016 2:15PM LLQ abdominal pain Dec 02 2016 2:15PM Generalized anxiety disorder Dec 02 2016 2:15PM Abdominal pain Dec 02 2016 2:54PM Radiculitis LT L4-5 Dec 14 2016 8:43AM Rib pain on left side Dec 15 2016 10:47AM Osteoporosis Dec 15 2016 10:47AM Closed fracture of one rib of left side, initial encounter Dec 15 2016 10: 47AM Chronic pain syndrome Dec 15 2016 10:47AM Cervicalgia Dec 20 2016 9:08AM Chronic pain syndrome Dec 02 2016 2:15PM Bronchospasm Jan 03 2017 2:12PM Chronic pain syndrome Jan 03 2017 2:12PM Anxiety about health Jan 03 2017 2:12PM Lumbar radiculopathy Jan 07 2017 2:55PM Eye pain, bilateral Feb 21 2017 3:25PM Other malaise Feb 21 2017 3:25PM Other fatigue Feb 21 2017 3:25PM Pain in left knee Feb 23 2017 5:37PM Knee swelling Feb 23 2017 5:37PM Unspecified conjunctivitis Feb 25 2017 9:00AM Chronic pain syndrome Feb 02 2017 10:46AM Anxiety about health Feb 02 2017 10:46AM Allergic reaction Mar 05 2017 9:14AM Osteoporosis Feb 15 2017 2:08PM Generalized weakness Feb 15 2017 2:08PM Chronic pain syndrome Feb 15 2017 2:08PM Lymphadenopathy Apr 20 2017 2:12PM Sore throat Apr 20 2017 2:12PM Nicotine Addiction Mar 22 2017 10:15AM Lightheadedness Jun 02 2017 4:05PM Encounter for screening mammogram for breast cancer Jun 17 2017 9:16AM Type 2 diabetes mellitus with hyperglycemia Jun 24 2017 10:33AM jail (current) use of insulin Jun 24 2017 10:33AM Fatigue, unspecified type Jun 24 2017 10:33AM Malaise Jun 24 2017 10:33AM Tingling of left upper extremity Jun 02 2017 4:05PM Routine gynecological examination Jun 28 2017 10:51AM Obesity Jun 28 2017 10:51AM Special screening for malignant neoplasms; breast; other screening mammogram Jun 28 2017 10:51AM Charity vaginitis Jun 28 2017 10:51AM Lichen sclerosus Jun 28 2017 10:51AM Cough Jul 18 2017 3:05PM Myalgia Jul 18 2017 3:05PM Back Pain Aug 15 2017 2:20PM Nausea & vomiting Aug 15 2017 2:20PM Polyuria Aug 15 2017 2:20PM Muscle spasm Aug 15 2017 2:20PM Foot pain, left Sep 06 2017 10:50AM Rib pain on right side Sep 06 2017 10:50AM Rib contusion, right, sequela Sep 14 2017 2:48PM Mixed hyperlipidemia Oct 27 2017 10:10AM Obstructive Sleep Apnea Oct 27 2017 10:10AM Bipolar disorder, unspecified Oct 27 2017 10:10AM Anxiety Oct 27 2017 10:10AM Fibromyalgia Oct 27 2017 10:10AM Gastroesophageal Reflux Oct 27 2017 10:10AM Insomnia, Oct 27 2017 10:10AM Vomiting Nov 02 2017 1:54PM Diarrhea Nov 02 2017 1:54PM Paresthesias Nov 16 2017 10:26AM Syncope Nov 16 2017 10:26AM Conversion disorder Nov 16 2017 10:26AM Cervicalgia Nov 16 2017 10:26AM Bladder incontinence Nov 16 2017 10:26AM Hemiballismus Nov 16 2017 10:26AM Cervicalgia Dec 16 2017 10:44AM Cognitive impairment Dec 16 2017 10:44AM Cervicalgia Jan 24 2018 11:28AM Cognitive impairment Jan 24 2018 11:28AM Chronic migraine w/o aura, intractable, w status migrainosus Jan 24 2018 11: 28AM Cervicalgia Mar 30 2018 4:32PM Cognitive impairment Mar 30 2018 4:32PM Chronic migraine w/o aura, intractable, w status migrainosus Mar 30 2018 4: 32PM Spasm Mar 30 2018 4:32PM Cervicalgia May 02 2018 11:43AM Cognitive impairment May 02 2018 11:43AM Chronic migraine w/o aura, intractable, w status migrainosus May 02 2018 11: 43AM Spasm May 02 2018 11:43AM Payers Insurance Name Company Name Plan Name Plan Number Policy Number Policy Group Number Start Date Medicare Part B [employer] [place] [id number] N/A [facility] Plan [facility] Comm Plan of [id number] Wednesday, 2012 [facility] Comm [id number] N/A Medicare RHC Medicare RHC [id number] N/A Medicare Part A Medicare - Lab/Xray [id number] N/A Medicare Part B [place] [id number] Monday, February 28, 2000 [place] [facility] [place] [employer] [place] [id number] Tuesday, November 10, 2009 Medicare Part A Medicare Part A [id number] N/A [place] [employer] - RHC [place] [employer] Pro[employer] - [facility] [id number] May History of Encounters Visit Date Visit Type Provider 05/02/2018 Office visit Aniket Mayen DO 03/30/2018 Office visit Aniket Mayen DO 01/24/2018 Office visit Aniket Mayen DO 01/12/2018 [facility] John Hoskins MD 01/12/2018 [facility] Martín Arora MD 12/16/2017 Office visit Aniket Mayen DO 12/09/2017 [facility] John Hoskins MD 11/16/2017 Office visit Aniket Mayen DO 11/02/2017 Office visit Symone Marie [employer] 10/27/2017 Office visit Kaylynn Mendez [employer] 09/14/2017 Office visit Heena Dumont MD 09/06/2017 Office visit Kaylynn Mendez [employer] 08/15/2017 Office visit Heena Dumont MD 07/18/2017 Office visit Heena Dumont MD 06/28/2017 Office visit 06/28/2017 Office visit Lena El GLOBAL CLIMATE CHANGE RESEARCHER 06/24/2017 Office visit Sundeep Russell GLOBAL CLIMATE CHANGE RESEARCHER 06/02/2017 Office visit Heena Dumont MD 04/20/2017 Office visit 04/20/2017 Office visit 04/20/2017 Office visit 04/20/2017 Office visit Heena Dumont MD 03/22/2017 Office visit Heena Dumont MD 03/05/2017 Office visit Lena Chaves GLOBAL CLIMATE CHANGE RESEARCHER 02/23/2017 Office visit Symone Marie GLOBAL CLIMATE CHANGE RESEARCHER 02/21/2017 Office visit Heena Dumont MD 02/15/2017 Office visit Heena Dumont MD 02/02/2017 Office visit Heean Dumont MD 01/07/2017 Office visit Riccardo Cardoza MD 01/03/2017 Office visit Heena Dumont MD 12/15/2016 Office visit Kaylynn Mendez GLOBAL CLIMATE CHANGE RESEARCHER 12/02/2016 Office visit Heena Dumont MD 11/23/2016 [facility] John Hoskins MD 11/23/2016 Office visit Kaylynn Mendez GLOBAL CLIMATE CHANGE RESEARCHER 11/17/2016 Office visit Kaylynn Mendez GLOBAL CLIMATE CHANGE RESEARCHER 11/05/2016 Office visit Riccardo Cardoza MD 11/02/2016 Office visit Heena Dumont MD 10/06/2016 Office visit Kaylynn Mendez GLOBAL CLIMATE CHANGE RESEARCHER 09/22/2016 Office visit Heena Dumont MD 09/09/2016 Office visit Kaylynn Mendez GLOBAL CLIMATE CHANGE RESEARCHER 08/27/2016 Office visit Riccardo Cardoza MD 08/26/2016 Office visit Heena Dumont MD 07/09/2016 Office visit Riccardo Cardoza MD 07/06/2016 Office visit Heena Dumont MD 06/18/2016 Office visit Kaylynn Mendez GLOBAL CLIMATE CHANGE RESEARCHER 06/07/2016 Office visit Sundeep Russell GLOBAL CLIMATE CHANGE RESEARCHER 06/04/2016 Office visit Heena Dumont MD 05/13/2016 Office visit Heena Dumont MD 05/03/2016 Office visit Heena Dumont MD 04/26/2016 Office visit Kaylynn Mendez GLOBAL CLIMATE CHANGE RESEARCHER 04/14/2016 Office visit Heena Dumont MD 04/13/2016 Office visit Kaylynn Mendez GLOBAL CLIMATE CHANGE RESEARCHER 04/02/2016 Office visit Lena El GLOBAL CLIMATE CHANGE RESEARCHER 04/02/2016 Office visit Heena Dumont MD 03/26/2016 Office visit Yesica Falcon GLOBAL CLIMATE CHANGE RESEARCHER 03/17/2016 Office visit Heena Dumont MD 03/05/2016 Office visit Kaylynn Mendez GLOBAL CLIMATE CHANGE RESEARCHER 02/16/2016 Office visit Heena Dumont MD 02/14/2016 Office visit Na Jones GLOBAL CLIMATE CHANGE RESEARCHER 01/16/2016 Office visit Heena Dumont MD 12/16/2015 Office visit Heena Dumont MD 11/24/2015 Office visit Kaylynn Mendez GLOBAL CLIMATE CHANGE RESEARCHER 11/18/2015 Office visit Heena Dumont MD 11/03/2015 Office visit Sundeep Russell GLOBAL CLIMATE CHANGE RESEARCHER 10/20/2015 Office visit Kaylynn Mendez GLOBAL CLIMATE CHANGE RESEARCHER 09/23/2015 Office visit Kaylynn Mendez GLOBAL CLIMATE CHANGE RESEARCHER 09/16/[address] Pepe Figueroa MD 09/02/2015 Office visit Kaylynn Mendez GLOBAL CLIMATE CHANGE RESEARCHER 09/01/2015 Office visit Kaylynn Mendez GLOBAL CLIMATE CHANGE RESEARCHER 07/30/2015 Office visit Heena Dumont MD 07/15/2015 Office visit Kaylynn Mendez GLOBAL CLIMATE CHANGE RESEARCHER 07/04/2015 Office visit Heena Dumont MD 06/06/2015 Office visit Heena Dumont MD 06/06/2015 Office visit Kaylynn Mendez GLOBAL CLIMATE CHANGE RESEARCHER 06/02/2015 Office visit Kaylynn Mendez GLOBAL CLIMATE CHANGE RESEARCHER 05/26/2015 Office visit Kaylynn Mendez GLOBAL CLIMATE CHANGE RESEARCHER 05/20/2015 Office visit Kaylynn Mendez GLOBAL CLIMATE CHANGE RESEARCHER 05/08/2015 Office visit Heena Dumont MD 05/06/2015 Office visit Kyalynn Mendez GLOBAL CLIMATE CHANGE RESEARCHER 04/29/2015 Office visit Kaylynn Mendez GLOBAL CLIMATE CHANGE RESEARCHER 03/27/2015 Voided Brittni Yanez GLOBAL CLIMATE CHANGE RESEARCHER 03/21/2015 Office visit Heena Dumont MD 03/12/2015 Office visit Kaylynn Mendez GLOBAL CLIMATE CHANGE RESEARCHER 02/26/2015 Office visit Brittni Yanez GLOBAL CLIMATE CHANGE RESEARCHER 02/13/2015 Office visit Heena Dumont MD 01/15/2015 Office visit Brittni Yanez GLOBAL CLIMATE CHANGE RESEARCHER 01/13/2015 Office visit Heena Dumont MD 01/08/[address] Carol Fowler MD 01/01/2015 Office visit Brittni Yanez GLOBAL CLIMATE CHANGE RESEARCHER 12/13/2014 Office visit Heena Dumont MD 11/27/2014 Office visit Kaylynn Mendez GLOBAL CLIMATE CHANGE RESEARCHER 11/14/2014 Office visit Heena Dumont MD 10/18/2014 Office visit Heena Dumont MD 10/17/2014 [facility] 10/09/2014 Office visit Heena Dumont MD 09/25/2014 Office visit Heena Dumont MD 09/17/2014 Office visit Kaylynn Mendez GLOBAL CLIMATE CHANGE RESEARCHER 09/04/2014 Office visit Heena Dumont MD 08/28/2014 Office visit Kaylynn Mendez GLOBAL CLIMATE CHANGE RESEARCHER 08/23/2014 [facility] 08/01/2014 Office visit Kaylynn Mendez GLOBAL CLIMATE CHANGE RESEARCHER 07/29/2014 Office visit Heena Dumont MD 07/25/2014 Nurse visit Heena Dumont MD 07/17/2014 Office visit Kaylynn Mendez GLOBAL CLIMATE CHANGE RESEARCHER 07/11/2014 Office visit Heena Dumont MD 07/01/2014 Office visit Heena Dumont MD 06/25/2014 Office visit Kaylynn Mendez GLOBAL CLIMATE CHANGE RESEARCHER 06/12/2014 Office visit Kaylynn Mendez GLOBAL CLIMATE CHANGE RESEARCHER 06/06/2014 Office visit Kaylynn Mendez GLOBAL CLIMATE CHANGE RESEARCHER 05/27/2014 Office visit Heena Dumont MD 04/20/2014 Office visit Yesica Falcon GLOBAL CLIMATE CHANGE RESEARCHER 03/29/2014 Office visit Na Jones GLOBAL CLIMATE CHANGE RESEARCHER 03/15/2014 Office visit Heena Dumont MD 2014 Office visit Heena Dumont MD 2014 [facility] John Hoskins MD 02/27/2014 Nurse visit Heena Dumont MD 02/13/2014 Office visit Lena El GLOBAL CLIMATE CHANGE RESEARCHER 02/07/2014 Office visit Heena Dumont MD 02/03/2014 Office visit Na Jones GLOBAL CLIMATE CHANGE RESEARCHER 01/30/2014 Office visit Kaylynn Mendez GLOBAL CLIMATE CHANGE RESEARCHER 01/24/2014 Office visit Sundeep Russell GLOBAL CLIMATE CHANGE RESEARCHER 01/16/2014 Office visit Kaylynn Mendez GLOBAL CLIMATE CHANGE RESEARCHER 01/10/2014 Nurse visit Kaylynn Mendez GLOBAL CLIMATE CHANGE RESEARCHER 01/08/2014 Office visit Kaylynn Mendez GLOBAL CLIMATE CHANGE RESEARCHER 12/05/2013 Office visit Kaylynn Mendez GLOBAL CLIMATE CHANGE RESEARCHER 11/21/2013 Office visit Kaylynn Mendez GLOBAL CLIMATE CHANGE RESEARCHER 10/23/2013 Office visit Brittni Yanez GLOBAL CLIMATE CHANGE RESEARCHER 10/17/2013 Nurse visit Heena Dumont MD 10/12/2013 Office visit Kaylynn Mendez GLOBAL CLIMATE CHANGE RESEARCHER 10/02/2013 Office visit Heena Dumont MD 09/20/2013 Nurse visit Kaylynn Mendez GLOBAL CLIMATE CHANGE RESEARCHER 09/20/2013 Voided Heena Dumont MD 09/14/2013 Office visit Kaylynn Walker GLOBAL CLIMATE CHANGE RESEARCHER 09/05/2013 Office visit Sundeep Russell GLOBAL CLIMATE CHANGE RESEARCHER 09/04/2013 Nurse visit Kaylynn Walker GLOBAL CLIMATE CHANGE RESEARCHER 08/31/2013 Office visit Kaylynn Walker GLOBAL CLIMATE CHANGE RESEARCHER 08/23/2013 Office visit Heena Dumont MD 08/10/2013 Office visit Kaylynn Walker GLOBAL CLIMATE CHANGE RESEARCHER 07/25/2013 Office visit Kaylynn Walker GLOBAL CLIMATE CHANGE RESEARCHER 07/18/2013 Office visit Kaylynn Walker GLOBAL CLIMATE CHANGE RESEARCHER 07/12/2013 Office visit Kaylynn Walker GLOBAL CLIMATE CHANGE RESEARCHER 06/28/2013 Nurse visit Kaylynn Walker GLOBAL CLIMATE CHANGE RESEARCHER 06/14/2013 Nurse visit Kaylynn Walker GLOBAL CLIMATE CHANGE RESEARCHER 06/08/2013 Nurse visit Kaylynn Walker GLOBAL CLIMATE CHANGE RESEARCHER 05/31/2013 Nurse visit Chadd Norris DO 05/18/2013 Office visit Terese Davidson MD 05/16/2013 Office visit Kaylynn Walker GLOBAL CLIMATE CHANGE RESEARCHER 05/09/2013 Office visit Kaylynn Mendez GLOBAL CLIMATE CHANGE RESEARCHER 04/29/2013 [facility] 04/25/2013 Nurse visit Kaylynn Walker GLOBAL CLIMATE CHANGE RESEARCHER 04/17/2013 Office visit Kaylynn Walker GLOBAL CLIMATE CHANGE RESEARCHER 04/03/2013 Nurse visit Kaylynn Walker GLOBAL CLIMATE CHANGE RESEARCHER 04/03/2013 Office visit Terese Davidson MD 03/28/2013 Office visit Sundeep Russell GLOBAL CLIMATE CHANGE RESEARCHER 03/21/2013 Office visit Kaylynn Mendez GLOBAL CLIMATE CHANGE RESEARCHER 03/20/2013 Office visit Terese Davidson MD 03/14/2013 Nurse visit Kaylynn Walker GLOBAL CLIMATE CHANGE RESEARCHER 03/05/2013 Nurse visit Kaylynn Mendez GLOBAL CLIMATE CHANGE RESEARCHER 02/19/2013 Office visit Terese Davidson MD 02/16/2013 Nurse visit Kaylynn Mendez GLOBAL CLIMATE CHANGE RESEARCHER 02/09/2013 Office visit Sundeep Russell GLOBAL CLIMATE CHANGE RESEARCHER 02/08/2013 Nurse visit Kaylynn Walker GLOBAL CLIMATE CHANGE RESEARCHER 02/01/2013 Nurse visit Kaylynn Walker GLOBAL CLIMATE CHANGE RESEARCHER 01/26/2013 Nurse visit Sabrina Mendez COOLING SYSTEM OPERATOR 01/25/2013 Office visit Kaylynn Walker GLOBAL CLIMATE CHANGE RESEARCHER 01/22/2013 Office visit Yoan Castaneda MD 01/18/2013 Nurse visit Kaylynn Walker GLOBAL CLIMATE CHANGE RESEARCHER 01/11/2013 Nurse visit Kaylynn Walker GLOBAL CLIMATE CHANGE RESEARCHER 01/05/2013 Nurse visit Kaylynn Walker GLOBAL CLIMATE CHANGE RESEARCHER 12/29/2012 Office visit Kaylynn Walker GLOBAL CLIMATE CHANGE RESEARCHER 11/27/2012 Office visit Kaylynn Mendez GLOBAL CLIMATE CHANGE RESEARCHER 11/08/2012 Office visit Odell Tierney MD 11/08/2012 Voided Odell Tierney MD 11/07/2012 Office visit Kaylynn Mendez GLOBAL CLIMATE CHANGE RESEARCHER 10/31/2012 [facility] John Hoskins MD 10/31/2012 Office visit Kaylynn Walker GLOBAL CLIMATE CHANGE RESEARCHER 10/19/2012 Office visit Genoveva Ayala GLOBAL CLIMATE CHANGE RESEARCHER 10/10/2012 Office visit Kaylynn Walker GLOBAL CLIMATE CHANGE RESEARCHER 10/03/2012 Office visit Kaylynn Walker GLOBAL CLIMATE CHANGE RESEARCHER 09/26/2012 Office visit Kaylynn Walker GLOBAL CLIMATE CHANGE RESEARCHER 09/06/2012 Office visit Kaylynn Andrea GLOBAL CLIMATE CHANGE RESEARCHER 09/06/2012 Office visit Odell Tierney MD 08/31/2012 Voided Kaylynn Andrea GLOBAL CLIMATE CHANGE RESEARCHER 07/28/2012 Office visit Kaylynn Walker GLOBAL CLIMATE CHANGE RESEARCHER 07/27/2012 Office visit David Joyner DO 07/20/2012 [facility] David Sheriffuman DO 07/13/2012 [facility] David Joyner DO 07/11/2012 Office visit Kaylynn Andrea GLOBAL CLIMATE CHANGE RESEARCHER 06/27/2012 [facility] Odell Tierney MD 06/21/2012 Office visit David Joyner DO 06/21/2012 Office visit Odell Tierney MD 06/20/2012 Office visit Brittni Yanez GLOBAL CLIMATE CHANGE RESEARCHER 06/06/2012 Office visit Odell Tierney MD 05/03/2012 Office visit Kaylynn Mendez GLOBAL CLIMATE CHANGE RESEARCHER 04/28/2012 Office visit Brittni Yanez GLOBAL CLIMATE CHANGE RESEARCHER 04/11/2012 Office visit Kaylynn Mendez GLOBAL CLIMATE CHANGE RESEARCHER 04/06/2012 [facility] John Hoskins MD 03/30/2012 Office visit Kaylynn Walker GLOBAL CLIMATE CHANGE RESEARCHER 03/15/2012 Office visit Kaylynn Walker GLOBAL CLIMATE CHANGE RESEARCHER 03/15/2012 Office visit Odell Tierney MD 02/09/2012 Office visit Kaylynn Mendez GLOBAL CLIMATE CHANGE RESEARCHER 12/23/2011 Office visit Kaylynn Walker GLOBAL CLIMATE CHANGE RESEARCHER 11/02/2011 Office visit Kaylynn Walker GLOBAL CLIMATE CHANGE RESEARCHER 10/14/2011 Office visit Kaylynn Walker GLOBAL CLIMATE CHANGE RESEARCHER 09/27/2011 Office visit Kaylynn Walker GLOBAL CLIMATE CHANGE RESEARCHER 08/19/2011 Hospital [facility] Hoskins MD 08/18/2011 [facility] John Hoskins MD 08/18/2011 Office visit Kaylynn Walker GLOBAL CLIMATE CHANGE RESEARCHER 08/02/2011 Office visit Kaylynn Walker GLOBAL CLIMATE CHANGE RESEARCHER 07/08/2011 Office visit Kaylynn Walker GLOBAL CLIMATE CHANGE RESEARCHER 07/05/2011 Office visit Odell Tierney MD 06/15/2011 Office visit Kaylynn Mendez GLOBAL CLIMATE CHANGE RESEARCHER 05/14/2011 Office visit Kaylynn Mendez GLOBAL CLIMATE CHANGE RESEARCHER 05/11/2011 Office visit Odell Tierney MD 04/28/2011 Office visit Kaylynn Mendez GLOBAL CLIMATE CHANGE RESEARCHER 03/02/2011 Office visit Chadd Norris DO 02/17/2011 Office visit Chadd Norris DO 01/19/2011 Office visit Odell Tierney MD 12/16/2010 Office visit Odell Tierney MD 12/02/2010 Office visit Yoan Castaneda MD 11/24/2010 Office visit Chadd Norris DO 11/17/2010 Office visit Chadd Norris DO 10/01/2010 Office visit Odell Tierney MD 09/02/2010 Office visit Odell Tierney MD 08/26/2010 Office visit Odell Tierney MD 07/23/2010 Office visit Odell Tierney MD 07/06/2010 Office visit Odell Tierney MD 06/18/2010 Office visit Yoan Castaneda MD 06/03/2010 Office visit Odell Tierney MD 03/18/2010 Office visit Odell Tierney MD 02/06/2010 Office visit Vickie STEIN 02/04/2010 Surgery Yoan Castaneda MD 01/29/2010 Office visit Hillary RITCHIE 12/23/2009 Surgery Yoan Castaneda MD 12/16/2009 Surgery Yoan Castaneda MD 12/10/2009 Office visit Odell Tierney MD 11/26/2009 Office visit Yoan Castaneda MD 11/17/2009 Office visit Odell Tierney MD 11/10/2009 Office visit Chadd Norris DO
--- OUTSIDE RECORDS SUMMARY | 2018-05-09 14:35 | XMS REPORT ---
Author Author Aniket Mayen Organization [facility] Address [address] [place], [place] [id number] Care Team Providers Care Sap Treasury Consultant Name Role Phone Aniket Mayen PCP Heena Dumont PreferredProvider Allergies and Adverse Reactions Name Reaction Notes Aspirin Methadone Ultram Vicodin Bactrim rash on legs Plan of Treatment Planned Activity Comments Planned Date Planned Time Plan/Goal VIDEO SWALLOW 05/08/2015 12:00 AM CMP 09/16/2015 12:00 AM EKG (12-lead electrocardiogram) [...] 01/19/2016 APPLY BY EXTERNAL ROUTE ONCE DAILY OneTouch TEEspy IQ Meter miscellaneous kit 01/21/2016 test 2 x daily, Dx: E11.9, 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 OneTouch Tequila Lancets 33 gauge miscellaneous misc 01/21/2016 use as directed omeprazole 20 mg oral capsule,delayed release(DR/EC) 03/19/2016 [...] TAKE 1 TABLET BY MOUTH EVERY DAY atorvastatin 80 mg oral tablet 10/27/2017 04/25/2018 take 1 tablet (80 mg) by oral route once daily for 30 days potassium chloride 10 mEq oral capsule, extended [...] by oral route once daily at bedtime Aimovig Autoinjector 70 mg/mL subcutaneous auto-injector 03/30/2018 04/29/2018 inject 1 milliliter (70 mg) by subcutaneous route once a month in the abdomen , thigh, or outer area of upper arm for 30 days metaxalone 800 mg oral tablet 03/30/2018 04/06/2018 take 1 tablet by oral route 3 times a day for 7 days Name Start Date Expiration Date SIG Comments [...] route BID Trilipix 135 mg oral capsule,delayed release(DR/EC) 04/24/2012 07/23/2012 take 1 capsule (135 mg) [...] 2 times a day for 7 days cane miscellaneous device 05/20/2014 08/27/2014 use as directed for 99 days Howell 5-325 mg oral tablet 06/17/2014 06/27/2014 take [...] a day as needed for 30 days [id number]-[id number]-[id number] 3.5-10,000-1 mg/mL-unit/mL-% otic drops,suspension 201401/08/2015 instill 4 [...] a day as needed for 30 days wheelchair miscellaneous device 07/04/2015 10/11/2015 use as directed for 99 days Ventolin HFA 90 mcg/actuation inhalation HFA [...] 30 minutes before meals and at bedtime OneTouch Gómez miscellaneous strip 01/21/2016 07/19/2016 Test 2x daily, Dx: E11.9 TEST STRIPS Elocon 0.1 % topical cream 04/02/2016 09/29/2016 [...] Ok for similiar substitution or individual components. [id number]-[id number]-[id number] 3.5-10,000-1 mg/mL-unit/mL-% otic drops,suspension 201607/23/2016 instill 4 [...] route 2 times per day with food baclofen 10 mg oral tablet 12/22/2017 01/21/2018 take 1 tablet by oral route once a day (at bedtime) for 30 days Discontinued Name Start Date Discontinued Date [...] to exceed 30 mL in 24 hours Tessalon Perles 100 mg oral capsule 04/30/2013 05/18/2013 [...] Active 06/09/2015 Vital Signs Date Time BP-Sys(mm[Hg] BP-Lisha(mm[Hg]) HR(bpm) RR(rpm) Temp WT HT HC BMI BSA BMI Percentile O2 Sat(%) 03/30/2018 4:30:00 PM 132 mmHg 70 mmHg 98 bpm 97.6 F 166.5 lbs 63 in 29.4938 kg/m 1.8322 m 98 % 01/24/2018 11:25:00 AM 108 mmHg 72 mmHg 92 bpm 18 rpm 99 F 168 lbs 63 in 29.76 kg/m2 1.84 m2 97 % 12/16/2017 10:42:00 AM 120 mmHg 78 mmHg 69 bpm 18 rpm 98.1 F 169.375 lbs 63 in 30.0031 kg/m 1.848 m 94 % 11/16/2017 10:12:00 AM 120 mmHg 60 mmHg 99 bpm 98.1 F 166 lbs 63 in 29.41 kg/m2 1.83 m2 97 % 11/02/2017 1:47:00 PM 130 mmHg 80 mmHg 87 bpm 16 rpm 97.7 F 161 lbs 63 in 28.5196 kg/m 1.8017 m 98 % 10/27/2017 10:04:00 AM 112 mmHg 70 mmHg 94 bpm 18 rpm 98.1 F 164.375 lbs 63 in 29.12 kg/m2 1.82 m2 97 % 09/14/2017 2:45:00 PM 118 mmHg 80 mmHg 84 bpm 16 rpm 98.6 F 169.125 lbs 63 in 29.9588 kg/m 1.8466 m 93 % 09/06/2017 10:48:00 AM 102 mmHg [...] 154.5 lbs 64 in 26.5196 kg/m 1.7789 12/16/2010 2:49:00 PM 110 mmHg 76 mmHg 78 bpm 16 rpm 96.9 F 12/02/2010 2:21:00 PM 122 mmHg 85 mmHg 96 bpm 98.4 F 157.312 lbs 64 in 27.0024 kg/m 1.795 11/24/2010 10:10:00 AM 128 mmHg 70 mmHg [...] Reviewed 04/28/2011 12:00 AM Decadron 1 mg NDC#[id number] (Jr) Reviewed 04/28/2011 12:00 AM Depo-Medrol 80 mg NDC#[id number]-Qnkvoigx Reviewed 09/02/2015 12:00 AM Toradol 60 Mg NDC#8043-8153-47 Reviewed 09/02/2015 12:00 AM Phenergan, Up to 50 Mg RHC Medicaid Reviewed 09/16/2015 12:00 AM Toradol 60 Mg NDC#0544-9656-30 Reviewed 09/16/2015 12:00 AM Phenergan Up to 50 mg RHC Medicare Reviewed 05/11/2011 12:00 AM N BLOCK INJ OCCIPITAL Reviewed 05/11/2011 12:00 AM Kenalog Mm-[address]-20 ANNA Reviewed 11/13/2015 12:00 AM ASSAY OF [...] INJ SC/IM Reviewed 07/08/2011 12:00 AM Toradol,15mg [facility]#[id number], Brunildaer Reviewed 07/08/2011 12:00 AM Phenergan 50 Mg Im [facility] 4206-2848-75 ALLIE [place] Reviewed 01/21/2016 12:00 AM ECG MONIT/REPRT UP TO 48 HRS Returned 08/02/2011 12:00 AM THER/PROPH/DIAG INJ SC/IM Reviewed 08/02/2011 12:00 AM Decadron 1 mg [facility]#[id number] (Jr) Reviewed 08/02/2011 12:00 AM Depo-Medrol 80 mg [facility]#[id number]-Tkdbkeor Reviewed 03/05/2016 12:00 AM COMPLETE CBC W/AUTO DIFF WBC Reviewed 03/05/2016 12:00 AM STREP A ASSAY W/OPTIC Reviewed 03/05/2016 12:00 AM C-REACTIVE PROTEIN Reviewed 03/18/2016 12:00 AM [facility] - flu vaccine administration Reviewed 03/18/2016 [...] Reviewed 09/27/2011 12:00 AM Depo-Medrol 80 mg [facility]#[id number]-Ksxilbnx Reviewed 09/27/2011 12:00 AM Depo-Medrol 40 mg [facility]#[id number] Reviewed 07/06/2016 12:00 AM CHEST X-RAY 4/> [...] Reviewed 12/23/2011 12:00 AM Decadron 1 mg NDC#[id number] (Jr) Reviewed 12/23/2011 12:00 AM Depo-Medrol 80 mg NDC#[id number]-Gujscvkv Reviewed 11/02/2016 11:45 AM URINALYSIS AUTO W/O [...] Reviewed 02/09/2012 12:00 AM Decadron 1 mg NDC#58256138428 (Jr) Reviewed 02/09/2012 12:00 AM Depo-Medrol 80 mg NDC#[id number]-Goerpoom Reviewed 02/21/2017 12:00 AM CULTURE OTHR SPECIMN AEROBIC Returned 02/21/2017 12:00 AM INFLUENZA ASSAY W/OPTIC Returned 02/23/2017 12:00 AM COMPLETE CBC W/AUTO DIFF WBC Reviewed 02/23/2017 12:00 AM X-RAY EXAM OF KNEE 3 Returned 03/15/2012 12:00 AM N BLOCK INJ OCCIPITAL Reviewed 03/15/2012 12:00 AM [place]entin Mn-[address]-20 ANNA Reviewed 04/11/2012 12:00 AM COMPLETE CBC [...] 06/20/2012 12:00 AM Decadron, Per 1 Mg [facility]# [address]-05 Reviewed 06/20/2012 12:00 AM Depo-Medrol, Per 80 Mg [facility]#1930[address]-39 Reviewed 09/06/2017 12:00 AM RADEX FOOT COMPLETE [...] INJ OCCIPITAL Reviewed 09/06/2012 12:00 AM Kenalog Cq-[address]-20 ANNA Reviewed 09/06/2012 12:00 AM X-RAY EXAM RIBS UNI 2 VIEWS Reviewed 09/26/2012 12:00 AM THER/PROPH/DIAG INJ SC/IM Reviewed 09/26/2012 12:00 AM Decadron, Per 1 Mg [facility]# [address]-76 Reviewed 09/26/2012 12:00 AM Depo-Medrol, Per 80 Mg ND#0623-6426-78 Reviewed 11/02/2017 12:00 AM COMPLETE CBC W/AUTO DIFF WBC Reviewed 11/02/2017 12:00 AM METABOLIC PANEL TOTAL CA Reviewed 10/03/2012 12:00 AM URINALYSIS AUTO W/O SCOPE Reviewed 10/03/2012 12:00 AM THER/PROPH/DIAG INJ SC/IM Reviewed 10/03/2012 12:00 AM Toradol 60 Mg [facility]#2414-1848-14 Reviewed 10/03/2012 12:00 AM Phenergan, 25Mg ND#5548-5852-86 Reviewed 10/19/2012 12:00 AM N BLOCK INJ OCCIPITAL Reviewed 10/19/2012 12:00 AM Kenalog, Per 10 Mg ND#2178-0654-68 Reviewed 10/19/2012 12:00 AM Toradol 30 Mg ND#5631-5302-50 Reviewed 10/19/2012 12:00 AM THER/PROPH/DIAG INJ SC/IM Reviewed 10/31/2012 12:00 AM COMPLETE CBC W/AUTO DIFF WBC Reviewed 10/31/2012 12:00 AM COMPREHEN METABOLIC PANEL Reviewed 10/31/2012 12:00 AM LIPID PANEL Reviewed 10/31/2012 12:00 AM ELECTROCARDIOGRAM COMPLETE Reviewed 11/03/2012 12:[address] THORAX W/O & W/DYE Reviewed 11/08/2012 12:00 AM N BLOCK INJ OCCIPITAL Reviewed 11/08/2012 12:00 AM Kenalog Qn-[address]-20 ANNA Reviewed 11/27/2012 12:00 AM COMPLETE CBC [...] 01/25/2013 12:00 AM Decadron, Per 1 Mg [facility]# [address]-04 Reviewed 01/25/2013 12:00 AM Depo-Medrol, Per 80 Mg [facility]#0216-6807-84 Reviewed 01/26/2013 12:00 AM IMMUNOTHERAPY ONE INJECTION [...] 05/16/2013 12:00 AM Decadron, Per 1 Mg [facility]# [address]-05 Reviewed 05/16/2013 12:00 AM Depo-Medrol, Per 80 Mg [facility]#5757-5894-44 Reviewed 05/31/2013 12:00 AM IMMUNOTHERAPY INJECTIONS Reviewed 06/08/2013 12:00 AM IMMUNOTHERAPY INJECTIONS Reviewed 06/14/2013 12:00 AM IMMUNOTHERAPY INJECTIONS Reviewed 06/28/2013 12:00 AM IMMUNOTHERAPY INJECTIONS Reviewed 07/12/2013 12:00 AM X-RAY EXAM RIBS UNI 2 VIEWS Reviewed 07/18/2013 12:00 AM Toradol 60 Mg [facility]#5962-1367-84 Reviewed 07/18/2013 12:00 AM THER/PROPH/DIAG INJ SC/IM Reviewed 08/23/2013 12:00 AM COMPLETE CBC W/AUTO DIFF WBC Reviewed 08/23/2013 12:00 AM COMPREHEN METABOLIC PANEL Reviewed 08/23/2013 12:00 AM LIPID PANEL Reviewed 08/31/2013 12:00 AM X-RAY EXAM OF LOWER LEG Reviewed 09/04/2013 12:00 AM IMMUNOTHERAPY INJECTIONS Reviewed 09/14/2013 12:00 AM THER/PROPH/DIAG INJ SC/IM Reviewed 09/14/2013 12:00 AM Decadron, Per 1 Mg [facility]# [address]-83 Reviewed 09/14/2013 12:00 AM Depo-Medrol, Per 80 Mg [facility]#3409-3053-74 Reviewed 09/20/2013 12:00 AM IMMUNOTHERAPY INJECTIONS Reviewed [...] INJ OCCIPITAL Reviewed 12/10/2009 12:00 AM Kenalog Ut-[address]-20 ANNA Reviewed 12/16/2009 12:00 AM HIV-1ANTIBODY Reviewed 12/16/2009 12:00 AM COMPLETE CBC W/AUTO DIFF WBC Reviewed 12/16/2009 12:00 AM METABOLIC PANEL TOTAL CA Reviewed 12/16/2009 12:00 AM Type and screen Reviewed 12/16/2009 12:00 AM PROTHROMBIN TIME Reviewed 12/16/2009 12:00 AM THROMBOPLASTIN TIME PARTIAL Reviewed 03/18/2010 12:00 AM DRAIN/INJ JOINT/BURSA W/O US Reviewed 03/18/2010 12:00 AM Kenalog Sd-[address]-20 ANNA Reviewed 11/21/2013 12:00 AM RADEX HAND MINIMUM 3 VIEWS Reviewed 06/03/2010 12:00 AM INJ TRIGGER POINT 1/2 MUSCL Reviewed 06/03/2010 12:00 AM Kenalog per 10Mg Im-Ndc#[address]-55(Niall) Reviewed 12/05/2013 12:00 AM COMPLETE CBC W/AUTO [...] Reviewed 07/23/2010 12:00 AM Kenalog per 10Mg Im-Ndc#[address]-16(Niall) Reviewed 2014 12:00 AM COMPLETE CBC W/AUTO [...] BLOCK INJ OCCIPITAL Reviewed 10/01/2010 12:00 AM Kenalog Gg-[address]-20 ANNA Reviewed 07/25/2014 12:00 AM THER/PROPH/DIAG INJ [...] Quant,IgM <0.80 RMSF , IgG, EIA Negative [facility] Spotted Fever,IgM 0.51 E. chaffeensis (HME) IgGTiter [...] 141 Influenza 04/24/2014 [employer] paste[employer]C FLUZONE [id number] Intramuscular Left Upper Arm 02/27/2014 01/15/2014 141 Influenza 02/13/2015 [employer] paste[employer]C FLUZONE [id number] Intramuscular Left Deltoid 02/13/2015 01/03/2015 140 Tdap 06/06/2015 [employer] SKB BOOSTRIX [id number] Intramuscular Left Deltoid 06/06/2015 07/23/2014 115 Influenza 03/18/2016 [facility] FLUZONE [id number] Intramuscular Left Deltoid 03/17/2016 01/03/2015 141 History [...] Abdominal Pain Jun 15 2011 1:50PM Lumbago Feb 6 2011 1:58PM Muscle Spasm Feb 6 2011 1:58PM Headache Feb 9 2011 1:38PM Heart Sound Abnormality Jul 08 2011 1:38PM Upper Respiratory Infections Aug 02 [...] mellitus with hyperglycemia Jun 24 2017 10:33AM residential (current) use of insulin Jun 24 2017 [...] 4: 32PM Spasm Mar 30 2018 4:32PM Payers Insurance Name Company Name Plan Name Plan Number Policy Number Policy Group Number Start Date Medicare Part B Medicare Of [place] [id number] N/A [facility] Community Plan of [facility] Comm Plan of [id number] Wednesday, 2012 [facility] [id number] N/A Medicare RHC Medicare RHC [id number] N/A Medicare Part A Medicare - Lab/Xray [id number] N/A Medicare Part B Medicare [place] [id number] Monday, February 28, 2000 [place] [employer] [place] [employer] [place] [id number] Tuesday, November 10, 2009 Medicare Part A Medicare Part A [id number] N/A [place] [employer] - RHC [place] [employer] Prog - RHC [id number] May History of Encounters Visit Date Visit Type Provider 03/30/2018 Office visit Aniket Mayen DO 01/24/2018 Office visit Aniket Mayen DO 01/12/2018 Hospital John Hoskins MD 01/12/2018 [facility] Martín Arora MD 12/16/2017 Office visit Aniket Mayen DO 12/09/2017 Hospital John Hoskins MD 11/16/2017 Office visit Aniket Mayen DO 11/02/2017 Office visit Symone Marie DISTRIBUTOR OF DIRECTORIES 10/27/2017 Office visit Kaylynn Mendez DISTRIBUTOR OF DIRECTORIES 09/14/2017 Office visit Heena Dumont MD 09/06/2017 Office visit Kaylynn Mendez DISTRIBUTOR OF DIRECTORIES 08/15/2017 Office visit Heena Dumont MD 07/18/2017 Office visit Heena Dumont MD 06/28/2017 Office visit 06/28/2017 Office visit Lena El DISTRIBUTOR OF DIRECTORIES 06/24/2017 Office visit Sundeep Russell DISTRIBUTOR OF DIRECTORIES 06/02/2017 Office visit Heena Dumont MD 04/20/2017 Office visit 04/20/2017 Office visit 04/20/2017 Office visit 04/20/2017 Office visit Heena Dumont MD 03/22/2017 Office visit Heena Dumont MD 03/05/2017 Office visit Lena Chaves DISTRIBUTOR OF DIRECTORIES 02/23/2017 Office visit Symone Marie DISTRIBUTOR OF DIRECTORIES 02/21/2017 Office visit Heena Dumont MD 02/15/2017 Office visit Heena Dumont MD 02/02/2017 Office visit Heena Dumont MD 01/07/2017 Office visit Riccardo Cardoza MD 01/03/2017 Office visit Heena Dumont MD 12/15/2016 Office visit Kaylynn Mendez DISTRIBUTOR OF DIRECTORIES 12/02/2016 Office visit Heena Dumont MD 11/23/2016 [facility] Eliseo Hoskins MD 11/23/2016 Office visit Kaylynn Mendez DISTRIBUTOR OF DIRECTORIES 11/17/2016 Office visit Kaylynn Mendez DISTRIBUTOR OF DIRECTORIES 11/05/2016 Office visit Riccardo Cardoza MD 11/02/2016 Office visit Heena Dumont MD 10/06/2016 Office visit Kaylynn Mendez DISTRIBUTOR OF DIRECTORIES 09/22/2016 Office visit Heena Dumont MD 09/09/2016 Office visit Kaylynn Mendez DISTRIBUTOR OF DIRECTORIES 08/27/2016 Office visit Riccardo Cardoza MD 08/26/2016 Office visit Heena Dumont MD 07/09/2016 Office visit Riccardo Cardoza MD 07/06/2016 Office visit Heena Dumont MD 06/18/2016 Office visit Kaylynn Mendez DISTRIBUTOR OF DIRECTORIES 06/07/2016 Office visit Sundeep Russell DISTRIBUTOR OF DIRECTORIES 06/04/2016 Office visit Heena Dumont MD 05/13/2016 Office visit Heena Dumont MD 05/03/2016 Office visit Heena Dumont MD 04/26/2016 Office visit Kaylynn Mendez DISTRIBUTOR OF DIRECTORIES 04/14/2016 Office visit Heena Dumont MD 04/13/2016 Office visit Kaylynn Mendez DISTRIBUTOR OF DIRECTORIES 04/02/2016 Office visit Lena El DISTRIBUTOR OF DIRECTORIES 04/02/2016 Office visit Heena Dumont MD 03/26/2016 Office visit Yesica Falcon DISTRIBUTOR OF DIRECTORIES 03/17/2016 Office visit Heena Dumont MD 03/05/2016 Office visit Kaylynn Mendez DISTRIBUTOR OF DIRECTORIES 02/16/2016 Office visit Heena Dumont MD 02/14/2016 Office visit Na Jones DISTRIBUTOR OF DIRECTORIES 01/16/2016 Office visit Heena Dumont MD 12/16/2015 Office visit Heena Dumont MD 11/24/2015 Office visit Kaylynn Mendez DISTRIBUTOR OF DIRECTORIES 11/18/2015 Office visit Heena Dumont MD 11/03/2015 Office visit Sundeep Russell DISTRIBUTOR OF DIRECTORIES 10/20/2015 Office visit Kaylynn Mendez DISTRIBUTOR OF DIRECTORIES 09/23/2015 Office visit Kaylynn Mendez DISTRIBUTOR OF DIRECTORIES 09/16/[address] Pepe Figueroa MD 09/02/2015 Office visit Kaylynn Mendez DISTRIBUTOR OF DIRECTORIES 09/01/2015 Office visit Kaylynn Mendez DISTRIBUTOR OF DIRECTORIES 07/30/2015 Office visit Heena Dumont MD 07/15/2015 Office visit Kaylynn Mendez DISTRIBUTOR OF DIRECTORIES 07/04/2015 Office visit Heena Dumont MD 06/06/2015 Office visit Heena Dumont MD 06/06/2015 Office visit Kaylynn Mendez DISTRIBUTOR OF DIRECTORIES 06/02/2015 Office visit Kaylynn Mendez DISTRIBUTOR OF DIRECTORIES 05/26/2015 Office visit Kaylynn Mendez DISTRIBUTOR OF DIRECTORIES 05/20/2015 Office visit Kaylynn Mendez DISTRIBUTOR OF DIRECTORIES 05/08/2015 Office visit Heena Dumont MD 05/06/2015 Office visit Kaylynn Mendez DISTRIBUTOR OF DIRECTORIES 04/29/2015 Office visit Kaylynn Mendez DISTRIBUTOR OF DIRECTORIES 03/27/2015 Voided Brittni Yanez DISTRIBUTOR OF DIRECTORIES 03/21/2015 Office visit Heena Dumont MD 03/12/2015 Office visit Kaylynn Mendez DISTRIBUTOR OF DIRECTORIES 02/26/2015 Office visit Brittni Yanez DISTRIBUTOR OF DIRECTORIES 02/13/2015 Office visit Heena Dumont MD 01/15/2015 Office visit Brittni Yanez DISTRIBUTOR OF DIRECTORIES 01/13/2015 Office visit Heena Dumont MD 01/08/[address] Carol Fowler MD 01/01/2015 Office visit Brittni Yanez DISTRIBUTOR OF DIRECTORIES 12/13/2014 Office visit Heena Dumont MD 11/27/2014 Office visit Kaylynn Mendez DISTRIBUTOR OF DIRECTORIES 11/14/2014 Office visit Heena Dumont MD 10/18/2014 Office visit Heena Dumont MD 10/17/2014 [facility] John Hoskins MD 10/09/2014 Office visit Heena Dumont MD 09/25/2014 Office visit Heena Dumont MD 09/17/2014 Office visit Kaylynn Mendez DISTRIBUTOR OF DIRECTORIES 09/04/2014 Office visit Heena Dumont MD 08/28/2014 Office visit Kaylynn Mendez DISTRIBUTOR OF DIRECTORIES 08/23/2014 [facility] John Hoskins MD 08/01/2014 Office visit Kaylynn Mendez DISTRIBUTOR OF DIRECTORIES 07/29/2014 Office visit Heena Dumont MD 07/25/2014 Nurse visit Heena Dumont MD 07/17/2014 Office visit Kaylynn Mendez DISTRIBUTOR OF DIRECTORIES 07/11/2014 Office visit Heena Dumont MD 07/01/2014 Office visit Heena Dumont MD 06/25/2014 Office visit Kaylynn Mendez DISTRIBUTOR OF DIRECTORIES 06/12/2014 Office visit Kaylynn Mendez DISTRIBUTOR OF DIRECTORIES 06/06/2014 Office visit Kaylynn Mendez DISTRIBUTOR OF DIRECTORIES 05/27/2014 Office visit Heena Dumont MD 04/20/2014 Office visit Yesica Falcon DISTRIBUTOR OF DIRECTORIES 03/29/2014 Office visit Na Jones DISTRIBUTOR OF DIRECTORIES 03/15/2014 Office visit Heena Dumont MD 2014 Office visit Heena Dumont MD 2014 [facility] John Hoskins MD 02/27/2014 Nurse visit Heena Dumont MD 02/13/2014 Office visit Lena El DISTRIBUTOR OF DIRECTORIES 02/07/2014 Office visit Heena Dumont MD 02/03/2014 Office visit Na Jones DISTRIBUTOR OF DIRECTORIES 01/30/2014 Office visit Kaylynn Mendez DISTRIBUTOR OF DIRECTORIES 01/24/2014 Office visit Sundeep Russell DISTRIBUTOR OF DIRECTORIES 01/16/2014 Office visit Kaylynn Mendez DISTRIBUTOR OF DIRECTORIES 01/10/2014 Nurse visit Kaylynn Walker DISTRIBUTOR OF DIRECTORIES 01/08/2014 Office visit Kaylynn Walker DISTRIBUTOR OF DIRECTORIES 12/05/2013 Office visit Kaylynn Walker DISTRIBUTOR OF DIRECTORIES 11/21/2013 Office visit Kaylynn Mendez DISTRIBUTOR OF DIRECTORIES 10/23/2013 Office visit Brittni Yanez DISTRIBUTOR OF DIRECTORIES 10/17/2013 Nurse visit Heena Dumont MD 10/12/2013 Office visit Kaylynn Mendez DISTRIBUTOR OF DIRECTORIES 10/02/2013 Office visit Heena Dumont MD 09/20/2013 Nurse visit Kaylynn Mendez DISTRIBUTOR OF DIRECTORIES 09/20/2013 Voided Heena Dumont MD 09/14/2013 Office visit Kaylynn Mendez DISTRIBUTOR OF DIRECTORIES 09/05/2013 Office visit Sundeep Russell DISTRIBUTOR OF DIRECTORIES 09/04/2013 Nurse visit Kaylynn Walker DISTRIBUTOR OF DIRECTORIES 08/31/2013 Office visit Kaylynn Walker DISTRIBUTOR OF DIRECTORIES 08/23/2013 Office visit Heena Dumotn MD 08/10/2013 Office visit Kaylynn Walker DISTRIBUTOR OF DIRECTORIES 07/25/2013 Office visit Kaylynn Walker DISTRIBUTOR OF DIRECTORIES 07/18/2013 Office visit Kaylynn Walker DISTRIBUTOR OF DIRECTORIES 07/12/2013 Office visit Kaylynn Walker DISTRIBUTOR OF DIRECTORIES 06/28/2013 Nurse visit Kaylynn Walker DISTRIBUTOR OF DIRECTORIES 06/14/2013 Nurse visit Kaylynn Walker DISTRIBUTOR OF DIRECTORIES 06/08/2013 Nurse visit Kaylynn Walker DISTRIBUTOR OF DIRECTORIES 05/31/2013 Nurse visit Chadd Norris DO 05/18/2013 Office visit Terese Davidson MD 05/16/2013 Office visit Kaylynn Walker DISTRIBUTOR OF DIRECTORIES 05/09/2013 Office visit Kaylynn Walker DISTRIBUTOR OF DIRECTORIES 04/29/2013 [facility] John Hoskins MD 04/25/2013 Nurse visit Kaylynn Walker DISTRIBUTOR OF DIRECTORIES 04/17/2013 Office visit Kaylynn Walker DISTRIBUTOR OF DIRECTORIES 04/03/2013 Nurse visit Kaylynn Walker DISTRIBUTOR OF DIRECTORIES 04/03/2013 Office visit Terese Davidson MD 03/28/2013 Office visit Sundeep Russell DISTRIBUTOR OF DIRECTORIES 03/21/2013 Office visit Kaylynn Mendez DISTRIBUTOR OF DIRECTORIES 03/20/2013 Office visit Terese Davidson MD 03/14/2013 Nurse visit Kaylynn Walker DISTRIBUTOR OF DIRECTORIES 03/05/2013 Nurse visit Kaylynn Walker DISTRIBUTOR OF DIRECTORIES 02/19/2013 Office visit Terese Davidson MD 02/16/2013 Nurse visit Kaylynn Walker DISTRIBUTOR OF DIRECTORIES 02/09/2013 Office visit Sundeep Russell DISTRIBUTOR OF DIRECTORIES 02/08/2013 Nurse visit Kaylynn Walker DISTRIBUTOR OF DIRECTORIES 02/01/2013 Nurse visit Kaylynn Walker DISTRIBUTOR OF DIRECTORIES 01/26/2013 Nurse visit Sabrina Mendez DIGITAL PRINTER OPERATOR 01/25/2013 Office visit Kaylynn Walker DISTRIBUTOR OF DIRECTORIES 01/22/2013 Office visit Yoan Castaneda MD 01/18/2013 Nurse visit Kaylynn Walker DISTRIBUTOR OF DIRECTORIES 01/11/2013 Nurse visit Kaylynn Walker DISTRIBUTOR OF DIRECTORIES 01/05/2013 Nurse visit Kaylynn Walker DISTRIBUTOR OF DIRECTORIES 12/29/2012 Office visit Kaylynn Walker DISTRIBUTOR OF DIRECTORIES 11/27/2012 Office visit Kaylynn Walker DISTRIBUTOR OF DIRECTORIES 11/08/2012 Office visit Odell Tierney MD 11/08/2012 Voided Odell Tierney MD 11/07/2012 Office visit Kaylynn Walker DISTRIBUTOR OF DIRECTORIES 10/31/2012 [facility] John Hoskins MD 10/31/2012 Office visit Kaylynn Walker DISTRIBUTOR OF DIRECTORIES 10/19/2012 Office visit Genoveva Ayala DISTRIBUTOR OF DIRECTORIES 10/10/2012 Office visit Kaylynn Mendez DISTRIBUTOR OF DIRECTORIES 10/03/2012 Office visit Kaylynn Mendez DISTRIBUTOR OF DIRECTORIES 09/26/2012 Office visit Kaylynn Mendez DISTRIBUTOR OF DIRECTORIES 09/06/2012 Office visit Kaylynn Mendez DISTRIBUTOR OF DIRECTORIES 09/06/2012 Office visit Odell Tierney MD 08/31/2012 Voided Kaylynn Mendez DISTRIBUTOR OF DIRECTORIES 07/28/2012 Office visit Kaylynn Andrea DISTRIBUTOR OF DIRECTORIES 07/27/2012 Office visit David Joyner DO 07/20/2012 Hospital David Joyner DO 07/13/2012 Hospital David Joyner DO 07/11/2012 Office visit Kaylynn Mendez DISTRIBUTOR OF DIRECTORIES 06/27/2012 Hospital Odell Tierney MD 06/21/2012 Office visit David Joyner DO 06/21/2012 Office visit Odell Tierney MD 06/20/2012 Office visit Brittni Yanez DISTRIBUTOR OF DIRECTORIES 06/06/2012 Office visit Odell Tierney MD 05/03/2012 Office visit Kaylynn Mendez DISTRIBUTOR OF DIRECTORIES 04/28/2012 Office visit Brittni Yanez DISTRIBUTOR OF DIRECTORIES 04/11/2012 Office visit Kaylynn Mendez DISTRIBUTOR OF DIRECTORIES 04/06/2012 [facility] John Hoskins MD 03/30/2012 Office visit Kaylynn Mendez DISTRIBUTOR OF DIRECTORIES 03/15/2012 Office visit Kaylynn Mendez DISTRIBUTOR OF DIRECTORIES 03/15/2012 Office visit Odell Tierney MD 02/09/2012 Office visit Kaylynn Mendez DISTRIBUTOR OF DIRECTORIES 12/23/2011 Office visit Kaylynn Mendez DISTRIBUTOR OF DIRECTORIES 11/02/2011 Office visit Kaylynn Mendez DISTRIBUTOR OF DIRECTORIES 10/14/2011 Office visit Kaylynn Walker DISTRIBUTOR OF DIRECTORIES 09/27/2011 Office visit Kaylynn Mendez DISTRIBUTOR OF DIRECTORIES 08/19/2011 Hospital John Hoskins MD 08/18/2011 Hospital John Hoskins MD 08/18/2011 Office visit Kaylynn Mendez DISTRIBUTOR OF DIRECTORIES 08/02/2011 Office visit Kaylynn Walker DISTRIBUTOR OF DIRECTORIES 07/08/2011 Office visit Kaylynn Mendez DISTRIBUTOR OF DIRECTORIES 07/05/2011 Office visit Odell Tierney MD 06/15/2011 Office visit Kaylynn Mendez DISTRIBUTOR OF DIRECTORIES 05/14/2011 Office visit Kaylynn Mendez DISTRIBUTOR OF DIRECTORIES 05/11/2011 Office visit Odell Tierney MD 04/28/2011 Office visit Kaylynn Mendez DISTRIBUTOR OF DIRECTORIES 03/02/2011 Office visit Chadd Norris DO 02/17/2011 [...]
[2018-05-09] MEDS ORDERED: NEOM10SO8 OT (14:41)
--- NOTE | 2018-05-09 14:41 | ED EENT ---
History of Present Illness General Chief Complaint: Ear Problems Stated Complaint: EAR ACHE Nursing Triage Note: ARRIVED VIA AMB TO TRIAGE ET COMPLAINS OF LEFT SIDED EAR PAIN DUE TO IMMUNE SYSTEM BEING DOWN AFTER TAKING RELCAST. Source: patient Exam Limitations: no limitations History of Present Illness Date Seen by Provider: May 09, 2018 Time Seen by Provider: 14:30 Initial Comments This 43-year-old woman presents to the emergency room with complaints of left sided otalgia and radiation of pain into the face around the left jaw. This has been present for a couple of days. She reports having upper respiratory infection symptoms for about 5 days. She is presently taking Augmentin. She states the Augmentin "isn't doing anything". She is afebrile at present. She reports that her ear canal is extremely swollen and she is having difficulty hearing out of it as a result. She is under the impression she is having immune problems because of Reclast treatments she gets for osteogenesis imperfecta. Patient also states she was recently admitted to [facility] for a medication-induced meningitis. Patient lives in [place] and sees Granados at the [facility] clinic in [place]. She describes multiple comorbidities and states "I couldn't possibly tell you all my medical problems". Allergies and Home Medications Allergies Coded Allergies: aspirin (Verified Allergy, Unknown, 12/26/14) methadone (Verified Allergy, Unknown, 12/26/14) tramadol (Verified Allergy, Unknown, 12/26/14) NSAIDS (Non-Steroidal Anti-Inflamma (Verified Adverse Reaction, Unknown, 05/09/18) "I just can't have them" Home Medications Amitriptyline Hcl 25 Mg Tab, 25 MG PO DAILY, (Reported) Baclofen 10 Mg Tab, 10 MG PO TID, (Reported) Celecoxib 200 Mg Capsule, 200 MG PO DAILY, (Reported) Esomeprazole Mag Trihydrate 40 Mg Capsule.dr, 40 MG PO DAILY, (Reported) Fenofibric Acid (Choline) 135 Mg Capsule.dr, 135 MG PO DAILY, (Reported) Lisinopril 20 Mg Tab, 20 MG PO DAILY, (Reported) Lurasidone Hcl 80 Mg Tablet, 80 MG PO DAILY, (Reported) Methocarbamol 750 Mg Tablet, 1 EACH PO QID PRN PRN for MUSCLE SPASMS Prescribed by: MEL PERSAUD on 06/12/13 4759 Metoprolol Succinate 100 Mg Tab.sr.24h, 1 EACH PO DAILY, (Reported) Milnacipran Hcl 50 Mg Tablet, 50 MG PO BID, (Reported) Neomycin/Polymyxin B Sulf/Hc 10 Ml Solution, 4 DROPS OT QID Prescribed by: MATT CORTEZ on 05/09/18 1441 Oxycodone Hcl 60 Mg Tab.sr.12h, 60 MG PO PRN PRN for HEADACHE, (Reported) Rosuvastatin Calcium 20 Mg Tablet, 20 MG PO DAILY, (Reported) Zolpidem Tartrate 12.5 Mg/Bottle Tab.mphase, 12.5 MG PO HS, (Reported) Patient Home Medication List Home Medication List Reviewed: Yes Review of Systems Review of Systems Constitutional: no symptoms reported Eyes: No Symptoms Reported Ears: See HPI Nose: no symptoms reported Mouth: no symptoms reported Throat: no symptoms reported Respiratory: no symptoms reported Cardiovascular: no symptoms reported Gastrointestinal: no symptoms reported Musculoskeletal: see HPI Skin: no symptoms reported Neurological: No Symptoms Reported Immunological/Allergic: see HPI Past Uqrqchn-Pybtbw-Ghpbos Hx Patient Social History Alcohol Use: Denies Use Recreational Drug Use: No Smoking Status: Current Everyday Smoker Recent Foreign Travel: No Contact w/Someone Who Travel: No Recent Infectious Disease Expo: No Immunizations Up To Date Date of Influenza Vaccine: Mar 30, 2013 Past Medical History Surgeries: Yes (LAPROSCOPY X2) Respiratory: No Cardiac: Yes ("ABNORMALLY HIGH PULSE") High Cholesterol, Hypertension 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 oz. [id number]; BMI Method:Stated General Appearance: WD/WN, no apparent distress Ears: left ear canal normal (mild erythema with the appearance of excoriation. 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 There did appear to be some excoriation within the ear canal. However, there were no exam findings to correlate with patient's pain in either ear. It was noted in K tracks that patient has had numerous controlled substances filled in the recent past. Departure Impression Primary Impression: Otitis externa Qualified Codes: H60.503 - Unspecified acute noninfective otitis externa, bilateral Additional Impression: Otalgia of both ears Disposition: HOME, SELF-CARE Condition: Stable Departure-Patient Inst. Decision time for Depature: 14:37 Referrals: SUNNY JEREZ MD (PCP/Family) Primary Care Physician Patient Instructions: Outer Ear Infection (DC) Add. Discharge Instructions: Continue with your antibiotics as prescribed. Follow up with your primary care provider if not improving after using drops for 48 hours. Return to care if symptoms are worsening, especially if you develop recurrent fevers over 100. Avoid placing anything in your ear canals other than the prescribed drops. This applies to Q-tips, fingernails, etc. All discharge instructions reviewed with patient and/or family. Voiced understanding. Scripts Neomycin/Polymyxin B Sulf/Hc (Nhlervim-Ufavxwmej-Fx Ear Soln) 10 Ml Solution 4 DROPS OT QID, #1 EA Prov: MATT ROWELL MD 05/09/18 MATT ROWELL MD May 09, 2018 14:41
--- OUTSIDE RECORDS SUMMARY | 2018-05-09 14:41 | XMS REPORT ---
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 takes one tablet daily Ambien CR 12.5 mg oral tablet,ext release multiphase take 1 tablet ( 12.5 mg) by oral route once daily at bedtime Fish Oil 120 mg-180 mg- 60 mg-1,200 mg oral capsule,delayed release(DR/EC) take 1 capsule by oral route daily Vitamin C 1,000 mg oral tablet extended release take 6 tablets by oral route daily Voltaren 1 % topical gel apply 2 gram to the affected area(s) by topical route 4 times per day Name Start Date Expiration Date SIG Comments [...] times per day for 7 days Zithromax Z-Simno 250 mg oral tablet 05/09/2013 05/14/2013 take [...] 08/27/2014 use as directed for 99 days Zelienople 5-325 mg oral tablet 06/17/2014 06/27/2014 take [...] a day as needed for 30 days wywroutp-stwdbzjxz-OT 3.5-10,000-1 mg/mL-unit/mL-% otic drops,suspension 201401/08/2015 instill 4 [...] minutes before meals and at bedtime OneTouch Verio miscellaneous strip 01/21/2016 07/19/2016 Test 2x daily, [...] Ok for similiar substitution or individual components. qulhjdsk-feqpgvthk-QL 3.5-10,000-1 mg/mL-unit/mL-% otic drops,suspension 201607/23/2016 instill 4 [...] route every 6 hours for 30 days albuterol sulfate 2.5 mg /3 mL (0.083 [...] mg) by oral route every 3 hours Problem List Description Status Onset Anemia Active [...] HC BMI BSA BMI Percentile O2 Sat(%) 01/24/2018 11:25:00 AM 108 mmHg 72 mmHg [...] 194 lbs 64 in 33.2997 kg/m 1.9934 05/03/2012 10:51:00 AM 136 mmHg 72 mmHg 68 bpm 18 rpm 98.7 F 190.25 lbs 04/28/2012 2:04:00 PM 124 mmHg 68 mmHg 96 bpm 20 rpm 96.4 F 188.4 lbs 64 in 32.3385 kg/m 1.9644 04/11/2012 2:18:00 PM 110 mmHg 78 mmHg [...] 182.5 lbs 64 in 31.3257 kg/m 1.9334 02/09/2012 10:56:00 AM 132 mmHg 70 mmHg [...] Reviewed 04/28/2011 12:00 AM Decadron 1 mg [facility]#65535130224 (Jr) Reviewed 04/28/2011 12:00 AM Depo-Medrol 80 mg ND#[id number]-Nymaetoa Reviewed 09/02/2015 12:00 AM Toradol 60 Mg ND#8261-9834-56 Reviewed 09/02/2015 12:00 AM Phenergan, Up to 50 Mg [facility] Medicaid Reviewed 09/16/2015 12:00 AM Toradol 60 Mg ND#7386-4634-52 Reviewed 09/16/2015 12:00 AM Phenergan Up to 50 mg [facility] Medicare Reviewed 05/11/2011 12:00 AM N BLOCK INJ OCCIPITAL Reviewed 05/11/2011 12:00 AM Kenalog By-[address]-20 ANNA Reviewed 11/13/2015 12:00 AM ASSAY OF [...] INJ SC/IM Reviewed 07/08/2011 12:00 AM Toradol,15mg [facility]#33120986449, Adilene Reviewed 07/08/2011 12:00 AM Phenergan 50 Mg Im [facility] 9969-1114-88 [facility] Reviewed 01/21/2016 12:00 AM ECG MONIT/REPRT UP TO 48 HRS Returned 08/02/2011 12:00 AM THER/PROPH/DIAG INJ SC/IM Reviewed 08/02/2011 12:00 AM Decadron 1 mg [facility]#20990999151 (Jr) Reviewed 08/02/2011 12:00 AM Depo-Medrol 80 mg [facility]#[id number]-Gkicfnlr Reviewed 03/05/2016 12:00 AM COMPLETE CBC W/AUTO DIFF WBC Reviewed 03/05/2016 12:00 AM STREP A ASSAY W/OPTIC Reviewed 03/05/2016 12:00 AM C-REACTIVE PROTEIN Reviewed 03/18/2016 12:00 AM C MEDICARE - flu vaccine administration Reviewed 03/18/2016 [...] Reviewed 09/27/2011 12:00 AM Depo-Medrol 80 mg [facility]#[id number]-Clitnwke Reviewed 09/27/2011 12:00 AM Depo-Medrol 40 mg [facility]#[id number] Reviewed 07/06/2016 12:00 AM CHEST X-RAY 4/> [...] Reviewed 12/23/2011 12:00 AM Decadron 1 mg [facility]#[id number] (Jr) Reviewed 12/23/2011 12:00 AM Depo-Medrol 80 mg [facility]#[id number]-Sspyioiv Reviewed 11/02/2016 11:45 AM URINALYSIS AUTO W/O [...] Reviewed 02/09/2012 12:00 AM Decadron 1 mg [facility]#22505104852 (Jr) Reviewed 02/09/2012 12:00 AM Depo-Medrol 80 mg [facility]#[id number]-Hrcaflot Reviewed 02/21/2017 12:00 AM CULTURE OTHR SPECIMN AEROBIC Returned 02/21/2017 12:00 AM INFLUENZA ASSAY W/OPTIC Returned 02/23/2017 12:00 AM COMPLETE CBC W/AUTO DIFF WBC Reviewed 02/23/2017 12:00 AM X-RAY EXAM OF KNEE 3 Returned 03/15/2012 12:00 AM N BLOCK INJ OCCIPITAL Reviewed 03/15/2012 12:00 AM Quentin Fg-[address]-20 ANNA Reviewed 04/11/2012 12:00 AM COMPLETE CBC [...] 06/20/2012 12:00 AM Decadron, Per 1 Mg N[facility]# [address]-36 Reviewed 06/20/2012 12:00 AM Depo-Medrol, Per 80 Mg N[facility]#3515-9129-28 Reviewed 09/06/2017 12:00 AM RADEX FOOT COMPLETE [...] INJ OCCIPITAL Reviewed 09/06/2012 12:00 AM Kenalog Fv-[address]-20 ANNA Reviewed 09/06/2012 12:00 AM X-RAY EXAM RIBS UNI 2 VIEWS Reviewed 09/26/2012 12:00 AM THER/PROPH/DIAG INJ SC/IM Reviewed 09/26/2012 12:00 AM Decadron, Per 1 Mg NDC# [address]-70 Reviewed 09/26/2012 12:00 AM Depo-Medrol, Per 80 Mg NDC#4005-1463-24 Reviewed 11/02/2017 12:00 AM COMPLETE CBC W/AUTO DIFF WBC Reviewed 11/02/2017 12:00 AM METABOLIC PANEL TOTAL CA Reviewed 10/03/2012 12:00 AM URINALYSIS AUTO W/O SCOPE Reviewed 10/03/2012 12:00 AM THER/PROPH/DIAG INJ SC/IM Reviewed 10/03/2012 12:00 AM Toradol 60 Mg [facility]#4983-3771-07 Reviewed 10/03/2012 12:00 AM Phenergan, 25Mg [facility]#2448-7691-85 Reviewed 10/19/2012 12:00 AM N BLOCK INJ OCCIPITAL Reviewed 10/19/2012 12:00 AM Kenalog, Per 10 Mg [facility]#0047-2041-16 Reviewed 10/19/2012 12:00 AM Toradol 30 Mg [facility]#7243-5948-53 Reviewed 10/19/2012 12:00 AM THER/PROPH/DIAG INJ SC/IM Reviewed 10/31/2012 12:00 AM COMPLETE CBC W/AUTO DIFF WBC Reviewed 10/31/2012 12:00 AM COMPREHEN METABOLIC PANEL Reviewed 10/31/2012 12:00 AM LIPID PANEL Reviewed 10/31/2012 12:00 AM ELECTROCARDIOGRAM COMPLETE Reviewed 11/03/2012 12:[address] THORAX W/O & W/DYE Reviewed 11/08/2012 12:00 AM N BLOCK INJ OCCIPITAL Reviewed 11/08/2012 12:00 AM Kenalog Jl-[address]-20 ANNA Reviewed 11/27/2012 12:00 AM COMPLETE CBC [...] 01/25/2013 12:00 AM Decadron, Per 1 Mg [facility]# [address]-77 Reviewed 01/25/2013 12:00 AM Depo-Medrol, Per 80 Mg [facility]#0887-3166-48 Reviewed 01/26/2013 12:00 AM IMMUNOTHERAPY ONE INJECTION [...] 05/16/2013 12:00 AM Decadron, Per 1 Mg [facility]# [address]-96 Reviewed 05/16/2013 12:00 AM Depo-Medrol, Per 80 Mg [facility]#2747-9325-91 Reviewed 05/31/2013 12:00 AM IMMUNOTHERAPY INJECTIONS Reviewed 06/08/2013 12:00 AM IMMUNOTHERAPY INJECTIONS Reviewed 06/14/2013 12:00 AM IMMUNOTHERAPY INJECTIONS Reviewed 06/28/2013 12:00 AM IMMUNOTHERAPY INJECTIONS Reviewed 07/12/2013 12:00 AM X-RAY EXAM RIBS UNI 2 VIEWS Reviewed 07/18/2013 12:00 AM Toradol 60 Mg [facility]#7181-8331-79 Reviewed 07/18/2013 12:00 AM THER/PROPH/DIAG INJ SC/IM Reviewed 08/23/2013 12:00 AM COMPLETE CBC W/AUTO DIFF WBC Reviewed 08/23/2013 12:00 AM COMPREHEN METABOLIC PANEL Reviewed 08/23/2013 12:00 AM LIPID PANEL Reviewed 08/31/2013 12:00 AM X-RAY EXAM OF LOWER LEG Reviewed 09/04/2013 12:00 AM IMMUNOTHERAPY INJECTIONS Reviewed 09/14/2013 12:00 AM THER/PROPH/DIAG INJ SC/IM Reviewed 09/14/2013 12:00 AM Decadron, Per 1 Mg [facility]# [address]-17 Reviewed 09/14/2013 12:00 AM Depo-Medrol, Per 80 Mg [facility]#1872-3334-73 Reviewed 09/20/2013 12:00 AM IMMUNOTHERAPY INJECTIONS Reviewed [...] INJ OCCIPITAL Reviewed 12/10/2009 12:00 AM Kenalog Vu-[address]-20 ANNA Reviewed 12/16/2009 12:00 AM HIV-1ANTIBODY Reviewed 12/16/2009 12:00 AM COMPLETE CBC W/AUTO DIFF WBC Reviewed 12/16/2009 12:00 AM METABOLIC PANEL TOTAL CA Reviewed 12/16/2009 12:00 AM Type and screen Reviewed 12/16/2009 12:00 AM PROTHROMBIN TIME Reviewed 12/16/2009 12:00 AM THROMBOPLASTIN TIME PARTIAL Reviewed 03/18/2010 12:00 AM DRAIN/INJ JOINT/BURSA W/O US Reviewed 03/18/2010 12:00 AM Kenalog Ai-[address]-20 ANNA Reviewed 11/21/2013 12:00 AM RADEX HAND MINIMUM 3 VIEWS Reviewed 06/03/2010 12:00 AM INJ TRIGGER POINT 1/2 MUSCL Reviewed 06/03/2010 12:00 AM Kenalog per 10Mg Im-[facility]#[address]-80(Niall) Reviewed 12/05/2013 12:00 AM COMPLETE CBC W/AUTO [...] Reviewed 07/23/2010 12:00 AM Kenalog per 10Mg Im-[facility]#[address]-14(Niall) Reviewed 2014 12:00 AM COMPLETE CBC W/AUTO [...] INJ OCCIPITAL Reviewed 10/01/2010 12:00 AM Kenalog Wh-[address]-20 ANNA Reviewed 07/25/2014 12:00 AM THER/PROPH/DIAG INJ [...] Quant,IgM <0.80 RMSF , IgG, EIA Negative [facility] Spotted Fever,IgM 0.51 E. chaffeensis (HME) [...] 141 Influenza 04/24/2014 sanofi pasteur PMC FLUZONE [id number] Intramuscular Left Upper Arm 02/27/2014 01/15/2014 141 Influenza 02/13/2015 sanofi pasteur PMC FLUZONE [id number] Intramuscular Left Deltoid 02/13/2015 01/03/2015 140 Tdap 06/06/2015 Gl[employer]oSmith[employer] SKB BOOSTRIX [id number] Intramuscular Left Deltoid 06/06/2015 07/23/2014 115 Influenza 03/18/2016 sanofi pasteur PMC FLUZONE [id number] Intramuscular Left Deltoid 03/17/2016 01/03/2015 141 History [...] unspecified allergic rhinitis type 06/09/2015 Myofascial pain b 2010 10:30AM Spinal enthesopathy Jul 23 2010 [...] Abdominal Pain Jun 15 2011 1:50PM Lumbago Jul 05 2011 1:58PM Muscle Spasm Jul 05 2011 1:58PM Headache Jul 08 2011 1:38PM Heart Sound Abnormality Jul 08 [...] Jun 27 2014 6:10PM Ankle pain, left Feb 2014 3:51PM Tendon dysfunction b 2014 3:51PM Osteoporosis Feb 2014 3:51PM Elevated liver enzymes Feb 2014 3:51PM Sternal pain Feb 2014 4:22PM Right Otitis Media, Acute b 2014 10:04AM Asthma b 2014 10:04AM Headache b 2014 4:46PM Fall as cause of accidental injury in home as place of occurrence, initial encounter b 2014 4:46PM Ankle instability, left b 2014 11:30AM Ankle pain b 2014 11:30AM History of fall Jul 23 2014 11:30AM Headache b 2014 11:30AM Osteoporosis Feb 2014 2:09PM Post concussion syndrome Jul 29 2014 3:46PM Fall Jul 29 2014 3:46PM Spinal stenosis Jul 29 2014 3:46PM Ankle pain, chronic, left Feb 12 2014 4:22PM Vertigo Feb 12 2014 4:22PM Eustachian tube dysfunction Aug 01 [...] Jul 09 2016 3:50PM Cervical spinal stenosis Feb 2016 3:50PM Lumbago Feb 10 2016 3:25PM Stenosis, cervical spine b 2016 3:25PM Disc disorder of cervical region b 2016 3:25PM Cervicalgia b 2016 3:25PM Osteoporosis Jul 16 2016 10:32AM [...] mellitus with hyperglycemia Jun 24 2017 10:33AM penitentiary (current) use of insulin Jun 24 2017 [...] status migrainosus Jan 24 2018 11: 28AM Payers Insurance Name Company Name Plan Name Plan Number Policy Number Policy Group Number Start Date Medicare Part B Medicare Of [place] [id number] N/A [facility] Plan of [facility] Comm Plan of [id number] Wednesday, 2012 [facility] - RHC - [facility] of [facility] RHC Comm [id number] N/A Medicare RHC Medicare RHC [id number] N/A Medicare Part A Medicare - Lab/Xray [id number] N/A Medicare Part B Medicare [facility] [id number] Monday, February 28, 2000 [place] [employer] [place] [employer] [place] [id number] Tuesday, November 10, 2009 Medicare Part A Medicare Part A [id number] N/A [place] [employer] [place] [employer] - [place] [id number] May History of Encounters Visit Date Visit Type Provider 01/24/2018 Office visit [facility] DO 12/16/2017 Office visit [facility] 12/09/2017 [facility] John Hoskins MD 11/16/2017 Office visit [facility] Mayen DO 11/02/2017 Office visit Symone Marie INFLATED BALL MOLDER 10/27/2017 Office visit Kaylynn Mendez INFLATED BALL MOLDER 09/14/2017 Office visit Heena Dumont MD 09/06/2017 Office visit Kaylynn Mendez INFLATED BALL MOLDER 08/15/2017 Office visit Heena Dumont MD 07/18/2017 Office visit Heena Dumont MD 06/28/2017 Office visit 06/28/2017 Office visit Lena El INFLATED BALL MOLDER 06/24/2017 Office visit Sundeep Russell INFLATED BALL MOLDER 06/02/2017 Office visit Heena Dumont MD 04/20/2017 Office visit 04/20/2017 Office visit 04/20/2017 Office visit 04/20/2017 Office visit Heena Dumont MD 03/22/2017 Office visit Heena Dumont MD 03/05/2017 Office visit Lena Chaves INFLATED BALL MOLDER 02/23/2017 Office visit Symone Marie INFLATED BALL MOLDER 02/21/2017 Office visit Heena Dumont MD 02/15/2017 Office visit Heena Duomnt MD 02/02/2017 Office visit Heena Dumont MD 01/07/2017 Office visit Riccardo Cardoza MD 01/03/2017 Office visit Heena Dumont MD 12/15/2016 Office visit Kaylynn Mendez INFLATED BALL MOLDER 12/02/2016 Office visit Heena Dumont MD 11/23/2016 [facility] Eliseo Hoskins MD 11/23/2016 Office visit Kaylynn Mendez INFLATED BALL MOLDER 11/17/2016 Office visit Kaylynn Mendez INFLATED BALL MOLDER 11/05/2016 Office visit Riccardo Cardoza MD 11/02/2016 Office visit Heena Dumont MD 10/06/2016 Office visit Kaylynn Mendez INFLATED BALL MOLDER 09/22/2016 Office visit Heena Dumont MD 09/09/2016 Office visit Kaylynn Mendez INFLATED BALL MOLDER 08/27/2016 Office visit Riccardo Cardoza MD 08/26/2016 Office visit Heena Dumont MD 07/09/2016 Office visit Riccardo Cardoza MD 07/06/2016 Office visit Heena Dumont MD 06/18/2016 Office visit Kaylynn Mendez INFLATED BALL MOLDER 06/07/2016 Office visit Sundeep Russell INFLATED BALL MOLDER 06/04/2016 Office visit Heena Dumont MD 05/13/2016 Office visit Heena Dumont MD 05/03/2016 Office visit Heena Dumont MD 04/26/2016 Office visit Kaylynn Mendez INFLATED BALL MOLDER 04/14/2016 Office visit Heena Dumont MD 04/13/2016 Office visit Kaylynn Mendez INFLATED BALL MOLDER 04/02/2016 Office visit Lena El INFLATED BALL MOLDER 04/02/2016 Office visit Heena Dumont MD 03/26/2016 Office visit Yesica Falcon INFLATED BALL MOLDER 03/17/2016 Office visit Heena Dumont MD 03/05/2016 Office visit Kaylynn Mendez INFLATED BALL MOLDER 02/16/2016 Office visit Heena Dumont MD 02/14/2016 Office visit Na Jones INFLATED BALL MOLDER 01/16/2016 Office visit Heena Dumont MD 12/16/2015 Office visit Heena Dumont MD 11/24/2015 Office visit Kaylynn Mendez INFLATED BALL MOLDER 11/18/2015 Office visit Heena Dumont MD 11/03/2015 Office visit Sundeep Russell INFLATED BALL MOLDER 10/20/2015 Office visit Kaylynn Mendez INFLATED BALL MOLDER 09/23/2015 Office visit Kaylynn Mendez INFLATED BALL MOLDER 09/16/[address] Pepe Figueroa MD 09/02/2015 Office visit Kaylynn Mendez INFLATED BALL MOLDER 09/01/2015 Office visit Kaylynn Mendez INFLATED BALL MOLDER 07/30/2015 Office visit Heena Dumont MD 07/15/2015 Office visit Kaylynn Mendez INFLATED BALL MOLDER 07/04/2015 Office visit Heena Dumont MD 06/06/2015 Office visit Heena Dumont MD 06/06/2015 Office visit Kaylynn Mendez INFLATED BALL MOLDER 06/02/2015 Office visit Kaylynn Walker INFLATED BALL MOLDER 05/26/2015 Office visit Kaylynn Walker INFLATED BALL MOLDER 05/20/2015 Office visit Kaylynn Mendez INFLATED BALL MOLDER 05/08/2015 Office visit Heena Dumont MD 05/06/2015 Office visit Kaylynn Mendez INFLATED BALL MOLDER 04/29/2015 Office visit Kaylynn Mendez INFLATED BALL MOLDER 03/27/2015 Voided Brittni Yanez INFLATED BALL MOLDER 03/21/2015 Office visit Heena Dumont MD 03/12/2015 Office visit Kaylynn Mendez INFLATED BALL MOLDER 02/26/2015 Office visit Brittni Yanez INFLATED BALL MOLDER 02/13/2015 Office visit Heena Dumont MD 01/15/2015 Office visit Brittni Yanez INFLATED BALL MOLDER 01/13/2015 Office visit Heena Dumont MD 01/08/[address] Carol Fowler MD 01/01/2015 Office visit Brittni Yanez INFLATED BALL MOLDER 12/13/2014 Office visit Heena Dumont MD 11/27/2014 Office visit Kaylynn Mendez INFLATED BALL MOLDER 11/14/2014 Office visit Heena Dumont MD 10/18/2014 Office visit Heena Dumont MD 10/17/2014 [facility] John Hoskins MD 10/09/2014 Office visit Heena Dumont MD 09/25/2014 Office visit Heena Dumont MD 09/17/2014 Office visit Kaylynn Mendez INFLATED BALL MOLDER 09/04/2014 Office visit Heena Dumont MD 08/28/2014 Office visit Kaylynn Mendez INFLATED BALL MOLDER 08/23/2014 Hospital John Hoskins MD 08/01/2014 Office visit Kaylynn Mendez INFLATED BALL MOLDER 07/29/2014 Office visit Heena Dumont MD 07/25/2014 Nurse visit Heena Dumont MD 07/17/2014 Office visit Kaylynn Mendez INFLATED BALL MOLDER 07/11/2014 Office visit Heena Dumont MD 07/01/2014 Office visit Heena Dumont MD 06/25/2014 Office visit Kaylynn Mendez INFLATED BALL MOLDER 06/12/2014 Office visit Kaylynn Mendez INFLATED BALL MOLDER 06/06/2014 Office visit Kaylynn Mendez INFLATED BALL MOLDER 05/27/2014 Office visit Heena Dumont MD 04/20/2014 Office visit Yesica Falcon INFLATED BALL MOLDER 03/29/2014 Office visit Na Jones INFLATED BALL MOLDER 03/15/2014 Office visit Heena Dumont MD 2014 Office visit Heena Dumont MD 2014 [facility] John Hosikns MD 02/27/2014 Nurse visit Heena Dumont MD 02/13/2014 Office visit Lena El INFLATED BALL MOLDER 02/07/2014 Office visit Heena Dumont MD 02/03/2014 Office visit Na Jones INFLATED BALL MOLDER 01/30/2014 Office visit Kaylynn Mendez INFLATED BALL MOLDER 01/24/2014 Office visit Sundeep Russell INFLATED BALL MOLDER 01/16/2014 Office visit Kaylynn Walker INFLATED BALL MOLDER 01/10/2014 Nurse visit Kaylynn Walker INFLATED BALL MOLDER 01/08/2014 Office visit Kaylynn Walker INFLATED BALL MOLDER 12/05/2013 Office visit Kaylynn Walker INFLATED BALL MOLDER 11/21/2013 Office visit Kaylynn Walker INFLATED BALL MOLDER 10/23/2013 Office visit Brittni Yanez INFLATED BALL MOLDER 10/17/2013 Nurse visit Heena Dumont MD 10/12/2013 Office visit Kaylynn Walker INFLATED BALL MOLDER 10/02/2013 Office visit Heena Dumont MD 09/20/2013 Nurse visit Kaylynn Mendez INFLATED BALL MOLDER 09/20/2013 Voided Heena Dumont MD 09/14/2013 Office visit Kaylynn Walker INFLATED BALL MOLDER 09/05/2013 Office visit Sundeep Russell INFLATED BALL MOLDER 09/04/2013 Nurse visit Kaylynn Mendez INFLATED BALL MOLDER 08/31/2013 Office visit Kaylynn Walker INFLATED BALL MOLDER 08/23/2013 Office visit Heena Dumont MD 08/10/2013 Office visit Kaylynn Walker INFLATED BALL MOLDER 07/25/2013 Office visit Kaylynn Walker INFLATED BALL MOLDER 07/18/2013 Office visit Kaylynn Walker INFLATED BALL MOLDER 07/12/2013 Office visit Kaylynn Walker INFLATED BALL MOLDER 06/28/2013 Nurse visit Kaylynn Walker INFLATED BALL MOLDER 06/14/2013 Nurse visit Kaylynn Mendez INFLATED BALL MOLDER 06/08/2013 Nurse visit Kaylynn Walker INFLATED BALL MOLDER 05/31/2013 Nurse visit Chadd Norris DO 05/18/2013 Office visit Terese Davidson MD 05/16/2013 Office visit Kaylynn Mendez INFLATED BALL MOLDER 05/09/2013 Office visit Kaylynn Mendez INFLATED BALL MOLDER 04/29/2013 [facility] John Hoskins MD 04/25/2013 Nurse visit Kaylynn Walker INFLATED BALL MOLDER 04/17/2013 Office visit Kaylynn Walker INFLATED BALL MOLDER 04/03/2013 Nurse visit Kaylynn Mendez INFLATED BALL MOLDER 04/03/2013 Office visit Terese Davidson MD 03/28/2013 Office visit Sundeep Russell INFLATED BALL MOLDER 03/21/2013 Office visit Kaylynn Mendez INFLATED BALL MOLDER 03/20/2013 Office visit Terese Davidson MD 03/14/2013 Nurse visit Kaylynn Mendez INFLATED BALL MOLDER 03/05/2013 Nurse visit Kaylynn Walker INFLATED BALL MOLDER 02/19/2013 Office visit Terese Davidson MD 02/16/2013 Nurse visit Kaylynn Walker INFLATED BALL MOLDER 02/09/2013 Office visit Sundeep Russell INFLATED BALL MOLDER 02/08/2013 Nurse visit Kaylynn Walker INFLATED BALL MOLDER 02/01/2013 Nurse visit Kaylynn Walker INFLATED BALL MOLDER 01/26/2013 Nurse visit Sabrina Andrea VARITYPE OPERATOR 01/25/2013 Office visit Kaylynn Walker INFLATED BALL MOLDER 01/22/2013 Office visit Yoan Castaneda MD 01/18/2013 Nurse visit Kaylynn Walker INFLATED BALL MOLDER 01/11/2013 Nurse visit Kaylynn Walker INFLATED BALL MOLDER 01/05/2013 Nurse visit Kaylynn Walker INFLATED BALL MOLDER 12/29/2012 Office visit Kaylynn Andrea INFLATED BALL MOLDER 11/27/2012 Office visit Kaylynn Mendez INFLATED BALL MOLDER 11/08/2012 Office visit Odell Tierney MD 11/08/2012 Voided Odell Tierney MD 11/07/2012 Office visit Kaylynn Mendez INFLATED BALL MOLDER 10/31/2012 [facility] John Hoskins MD 10/31/2012 Office visit Kaylynn Mendez INFLATED BALL MOLDER 10/19/2012 Office visit Genoveva Ayala INFLATED BALL MOLDER 10/10/2012 Office visit Kaylynn Mendez INFLATED BALL MOLDER 10/03/2012 Office visit Kaylynn Mendez INFLATED BALL MOLDER 09/26/2012 Office visit Kaylynn Mendez INFLATED BALL MOLDER 09/06/2012 Office visit Kaylynn Mendez INFLATED BALL MOLDER 09/06/2012 Office visit Odell Tierney MD 08/31/2012 Voided Kaylynn Mendez INFLATED BALL MOLDER 07/28/2012 Office visit Kaylynn Mendez INFLATED BALL MOLDER 07/27/2012 Office visit David Joyner DO 07/20/2012 [facility] David Joyner DO 07/13/2012 [facility] David Joyner DO 07/11/2012 Office visit Kaylynn Mendez INFLATED BALL MOLDER 06/27/2012 [facility] Odell Tierney MD 06/21/2012 Office visit David Joyner DO 06/21/2012 Office visit Odell Tierney MD 06/20/2012 Office visit Brittni Yanez INFLATED BALL MOLDER 06/06/2012 Office visit Odell Tierney MD 05/03/2012 Office visit Kaylynn Mendez INFLATED BALL MOLDER 04/28/2012 Office visit Brittni Yanez INFLATED BALL MOLDER 04/11/2012 Office visit Kaylynn Mendez INFLATED BALL MOLDER 04/06/2012 [facility] John Hoskins MD 03/30/2012 Office visit Kaylynn Mendez INFLATED BALL MOLDER 03/15/2012 Office visit Kaylynn Mendez INFLATED BALL MOLDER 03/15/2012 Office visit Odell Tierney MD 02/09/2012 Office visit Kaylynn Mendez INFLATED BALL MOLDER 12/23/2011 Office visit Kaylynn Mendez INFLATED BALL MOLDER 11/02/2011 Office visit Kaylynn Mendez INFLATED BALL MOLDER 10/14/2011 Office visit Kaylynn Mendez INFLATED BALL MOLDER 09/27/2011 Office visit Kaylynn Mendez INFLATED BALL MOLDER 08/19/2011 Hospital John Hoskins MD 08/18/2011 Hospital John Hoskins MD 08/18/2011 Office visit Kaylynn Mendez INFLATED BALL MOLDER 08/02/2011 Office visit Kaylynn Mendez INFLATED BALL MOLDER 07/08/2011 Office visit Kaylynn Mendez INFLATED BALL MOLDER 07/05/2011 Office visit Odell Tierney MD 06/15/2011 Office visit Kaylynn Mendez INFLATED BALL MOLDER 05/14/2011 Office visit Kaylynn Andrea INFLATED BALL MOLDER 05/11/2011 Office visit Odell Tierney MD 04/28/2011 Office visit Kaylynn Mendez INFLATED BALL MOLDER 03/02/2011 Office visit Chadd Norris DO 02/17/2011 [...]
[2018-05-09 14:47] VITALS: BP 140/83
--- OUTSIDE RECORDS SUMMARY | 2018-05-09 14:47 | XMS REPORT ---
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 takes one tablet daily oxycodone 10 mg oral tablet take 1 tablet [...] by topical route 4 times per day baclofen 10 mg oral tablet 12/16/2017 12/23/2017 take 1 tablet by oral route once a day (at bedtime) for 7 days Name Start Date Expiration [...] 08/27/2014 use as directed for 99 days [place] 5-325 mg oral tablet 06/17/2014 06/27/2014 take [...] a day as needed for 30 days oknpenpf-decmevfah-VS 3.5-10,000-1 mg/mL-unit/mL-% otic drops,suspension 201401/08/2015 instill 4 [...] minutes before meals and at bedtime OneTouch Verk[employer] miscellaneous strip 01/21/2016 07/19/2016 Test 2x daily, [...] Ok for similiar substitution or individual components. zykiqtrt-rqdtxrctn-HO 3.5-10,000-1 mg/mL-unit/mL-% otic drops,suspension 201607/23/2016 instill 4 [...] route 2 times per day with food Discontinued Name Start Date Discontinued Date SIG [...] area(s) by topical route once daily changed Problem List Description Status Onset Anemia Active [...] HC BMI BSA BMI Percentile O2 Sat(%) 12/16/2017 10:42:00 AM 120 mmHg 78 mmHg [...] 160.5 lbs 64 in 27.5495 kg/m 1.8131 05/14/2011 10:30:00 AM 118 mmHg 68 mmHg [...] Reviewed 04/28/2011 12:00 AM Decadron 1 mg NDC#[id number] (Jr) Reviewed 04/28/2011 12:00 AM Depo-Medrol 80 mg NDC#[id number]-Mvfqltnl Reviewed 09/02/2015 12:00 AM Toradol 60 Mg NDC#6843-9901-47 Reviewed 09/02/2015 12:00 AM Phenergan, Up to 50 Mg [facility] Medicaid Reviewed 09/16/2015 12:00 AM Toradol 60 Mg [facility]#8534-7560-15 Reviewed 09/16/2015 12:00 AM Phenergan Up to 50 mg [facility] Medicare Reviewed 05/11/2011 12:00 AM N BLOCK INJ OCCIPITAL Reviewed 05/11/2011 12:00 AM Kenalog Sm-[address]-20 ANNA Reviewed 11/13/2015 12:00 AM ASSAY OF [...] SC/IM Reviewed 07/08/2011 12:00 AM Toradol,15mg [facility]#[id number], [place] Reviewed 07/08/2011 12:00 AM Phenergan 50 Mg Im [facility] 4092-8500-20 [facility] Reviewed 01/21/2016 12:00 AM ECG MONIT/REPRT UP TO 48 HRS Returned 08/02/2011 12:00 AM THER/PROPH/DIAG INJ SC/IM Reviewed 08/02/2011 12:00 AM Decadron 1 mg [facility]#[id number] (Jr) Reviewed 08/02/2011 12:00 AM Depo-Medrol 80 mg [facility]#[id number]-Fysatlxk Reviewed 03/05/2016 12:00 AM COMPLETE CBC W/AUTO DIFF WBC Reviewed 03/05/2016 12:00 AM STREP A ASSAY W/OPTIC Reviewed 03/05/2016 12:00 AM C-REACTIVE PROTEIN Reviewed 03/18/2016 12:00 AM RHC MEDICARE - flu vaccine administration Reviewed 03/18/2016 [...] Reviewed 09/27/2011 12:00 AM Depo-Medrol 80 mg [facility]#[id number]-Zcrlxgwo Reviewed 09/27/2011 12:00 AM Depo-Medrol 40 mg [facility]#[id number] Reviewed 07/06/2016 12:00 AM CHEST X-RAY 4/> [...] Reviewed 12/23/2011 12:00 AM Decadron 1 mg [facility]#[id number] (Jr) Reviewed 12/23/2011 12:00 AM Depo-Medrol 80 mg [facility]#[id number]-Iqjgqzvh Reviewed 11/02/2016 11:45 AM URINALYSIS AUTO W/O [...] 02/09/2012 12:00 AM Decadron 1 mg [facility]#[id number] (Jr) Reviewed 02/09/2012 12:00 AM Depo-Medrol 80 mg N[facility]#[id number]-Raouqasq Reviewed 02/21/2017 12:00 AM CULTURE OTHR SPECIMN AEROBIC Returned 02/21/2017 12:00 AM INFLUENZA ASSAY W/OPTIC Returned 02/23/2017 12:00 AM COMPLETE CBC W/AUTO DIFF WBC Reviewed 02/23/2017 12:00 AM X-RAY EXAM OF KNEE 3 Returned 03/15/2012 12:00 AM N BLOCK INJ OCCIPITAL Reviewed 03/15/2012 12:00 AM Kenalog Yo-[address]-20 ANNA Reviewed 04/11/2012 12:00 AM COMPLETE CBC [...] 06/20/2012 12:00 AM Decadron, Per 1 Mg [facility]# [address]-57 Reviewed 06/20/2012 12:00 AM Depo-Medrol, Per 80 Mg ND#1853-5934-19 Reviewed 09/06/2017 12:00 AM RADEX FOOT COMPLETE [...] INJ OCCIPITAL Reviewed 09/06/2012 12:00 AM Kenalog Xa-[address]-20 ANNA Reviewed 09/06/2012 12:00 AM X-RAY EXAM RIBS UNI 2 VIEWS Reviewed 09/26/2012 12:00 AM THER/PROPH/DIAG INJ SC/IM Reviewed 09/26/2012 12:00 AM Decadron, Per 1 Mg [facility]# [address]-83 Reviewed 09/26/2012 12:00 AM Depo-Medrol, Per 80 Mg [facility]#5620-2938-00 Reviewed 11/02/2017 12:00 AM COMPLETE CBC W/AUTO DIFF WBC Reviewed 11/02/2017 12:00 AM METABOLIC PANEL TOTAL CA Reviewed 10/03/2012 12:00 AM URINALYSIS AUTO W/O SCOPE Reviewed 10/03/2012 12:00 AM THER/PROPH/DIAG INJ SC/IM Reviewed 10/03/2012 12:00 AM Toradol 60 Mg [facility]#3921-3181-25 Reviewed 10/03/2012 12:00 AM Phenergan, 25Mg [facility]#0376-6414-68 Reviewed 10/19/2012 12:00 AM N BLOCK INJ OCCIPITAL Reviewed 10/19/2012 12:00 AM Kenalog, Per 10 Mg [facility]#5503-6846-99 Reviewed 10/19/2012 12:00 AM Toradol 30 Mg [facility]#9375-7937-86 Reviewed 10/19/2012 12:00 AM THER/PROPH/DIAG INJ SC/IM Reviewed 10/31/2012 12:00 AM COMPLETE CBC W/AUTO DIFF WBC Reviewed 10/31/2012 12:00 AM COMPREHEN METABOLIC PANEL Reviewed 10/31/2012 12:00 AM LIPID PANEL Reviewed 10/31/2012 12:00 AM ELECTROCARDIOGRAM COMPLETE Reviewed 11/03/2012 12:[address] THORAX W/O & W/DYE Reviewed 11/08/2012 12:00 AM N BLOCK INJ OCCIPITAL Reviewed 11/08/2012 12:00 AM Kenalog Pu-[address]-20 ANNA Reviewed 11/27/2012 12:00 AM COMPLETE CBC [...] 12:00 AM Decadron, Per 1 Mg [facility]# [address]-21 Reviewed 01/25/2013 12:00 AM Depo-Medrol, Per 80 Mg [facility]#2300-4958-06 Reviewed 01/26/2013 12:00 AM IMMUNOTHERAPY ONE INJECTION [...] 12:00 AM Decadron, Per 1 Mg [facility]# [address]-00 Reviewed 05/16/2013 12:00 AM Depo-Medrol, Per 80 Mg [facility]#7455-7324-65 Reviewed 05/31/2013 12:00 AM IMMUNOTHERAPY INJECTIONS Reviewed 06/08/2013 12:00 AM IMMUNOTHERAPY INJECTIONS Reviewed 06/14/2013 12:00 AM IMMUNOTHERAPY INJECTIONS Reviewed 06/28/2013 12:00 AM IMMUNOTHERAPY INJECTIONS Reviewed 07/12/2013 12:00 AM X-RAY EXAM RIBS UNI 2 VIEWS Reviewed 07/18/2013 12:00 AM Toradol 60 Mg [facility]#4803-4662-98 Reviewed 07/18/2013 12:00 AM THER/PROPH/DIAG INJ SC/IM Reviewed 08/23/2013 12:00 AM COMPLETE CBC W/AUTO DIFF WBC Reviewed 08/23/2013 12:00 AM COMPREHEN METABOLIC PANEL Reviewed 08/23/2013 12:00 AM LIPID PANEL Reviewed 08/31/2013 12:00 AM X-RAY EXAM OF LOWER LEG Reviewed 09/04/2013 12:00 AM IMMUNOTHERAPY INJECTIONS Reviewed 09/14/2013 12:00 AM THER/PROPH/DIAG INJ SC/IM Reviewed 09/14/2013 12:00 AM Decadron, Per 1 Mg [facility]# [address]-31 Reviewed 09/14/2013 12:00 AM Depo-Medrol, Per 80 Mg [facility]#5459-9089-75 Reviewed 09/20/2013 12:00 AM IMMUNOTHERAPY INJECTIONS Reviewed [...] INJ OCCIPITAL Reviewed 12/10/2009 12:00 AM Kenalog Iy-[address]-20 ANNA Reviewed 12/16/2009 12:00 AM HIV-1ANTIBODY Reviewed 12/16/2009 12:00 AM COMPLETE CBC W/AUTO DIFF WBC Reviewed 12/16/2009 12:00 AM METABOLIC PANEL TOTAL CA Reviewed 12/16/2009 12:00 AM Type and screen Reviewed 12/16/2009 12:00 AM PROTHROMBIN TIME Reviewed 12/16/2009 12:00 AM THROMBOPLASTIN TIME PARTIAL Reviewed 03/18/2010 12:00 AM DRAIN/INJ JOINT/BURSA W/O US Reviewed 03/18/2010 12:00 AM Kenalog We-[address]-20 ANNA Reviewed 11/21/2013 12:00 AM RADEX HAND MINIMUM 3 VIEWS Reviewed 06/03/2010 12:00 AM INJ TRIGGER POINT 1/2 MUSCL Reviewed 06/03/2010 12:00 AM Kenalog per 10Mg Im-[facility]#[address]-24(Niall) Reviewed 12/05/2013 12:00 AM COMPLETE CBC W/AUTO [...] Reviewed 07/23/2010 12:00 AM Kenalog per 10Mg Im-N[facility]#[address]-43(Niall) Reviewed 2014 12:00 AM COMPLETE CBC W/AUTO [...] INJ OCCIPITAL Reviewed 10/01/2010 12:00 AM Kenalog Vr-[address]-20 ANNA Reviewed 07/25/2014 12:00 AM THER/PROPH/DIAG INJ [...] Quant,IgM <0.80 RMSF , IgG, EIA Negative [facility] Spotted Fever,IgM 0.51 E. chaffeensis (HME) [...] 141 Influenza 04/24/2014 sanofi pasteur PMC FLUZONE [id number] Intramuscular Left Upper Arm 02/27/2014 01/15/2014 141 Influenza 02/13/2015 sanofi pasteur PMC FLUZONE [id number] Intramuscular Left Deltoid 02/13/2015 01/03/2015 140 Tdap 06/06/2015 Gl[employer]oSmith[employer] SKB BOOSTRIX [id number] Intramuscular Left Deltoid 06/06/2015 07/23/2014 115 Influenza 03/18/2016 sanofi pasteur PMC FLUZONE [id number] Intramuscular Left Deltoid 03/17/2016 01/03/2015 141 History [...] Jul 08 2011 1:38PM Heart Sound Abnormality b 2011 1:38PM Upper Respiratory Infections Aug 02 [...] pain, left Feb 2014 3:51PM Tendon dysfunction Feb 2014 3:51PM Osteoporosis b 2014 3:51PM Elevated liver enzymes Feb 2014 3:51PM Sternal pain b 2014 4:22PM Right Otitis Media, Acute Jul 17 2014 10:04AM Asthma Jul 17 2014 10:04AM Headache b 2014 4:46PM Fall as cause of accidental injury in home as place of occurrence, initial encounter Jul 18 2014 4:46PM Ankle instability, left b 2014 11:30AM Ankle pain b 2014 11:30AM History of fall Jul 23 2014 11:30AM Headache b 2014 11:30AM Osteoporosis b 2014 2:09PM Post concussion syndrome Jul 29 2014 3:46PM Fall Jul 29 2014 3:46PM Spinal stenosis Jul 29 2014 3:46PM Ankle pain, chronic, left Feb 2014 4:22PM Vertigo Jul 11 2014 4:22PM [...] of cervical region b 2016 3:25PM Cervicalgia Jul 09 2016 3:25PM [...] mellitus with hyperglycemia Jun 24 2017 10:33AM correction (current) use of insulin Jun 24 2017 [...] 10:44AM Cognitive impairment Dec 16 2017 10:44AM Payers Insurance Name Company Name Plan Name Plan Number Policy Number Policy Group Number Start Date Medicare Part B Medicare Of [place] [id number] N/A [facility] Comm Plan of [id number] Wednesday, 2012 [facility] Comm [id number] N/A Medicare [facility] Medicare [facility] [id number] N/A Medicare Part A Medicare - Lab/Xray [id number] N/A Medicare Part B Medicare [place] [id number] Monday, February 28, 2000 [place] [employer] [facility] [place] [employer] [id number] Tuesday, November 10, 2009 Medicare Part A Medicare Part A [id number] N/A [place] [employer] [place] [facility] [place] [employer] [place] [employer] [id number] May History of Encounters Visit Date Visit Type Provider 12/16/2017 Office visit Aniket Mayen DO 11/16/2017 Office visit Aniket Mayen DO 11/02/2017 Office visit Symone Marie ANTENNA RIGGER 10/27/2017 Office visit Kaylynn Mendez ANTENNA RIGGER 09/14/2017 Office visit Heena Dumont MD 09/06/2017 Office visit Kaylynn Mendez ANTENNA RIGGER 08/15/2017 Office visit Heena Dumont MD 07/18/2017 Office visit Heena Dumont MD 06/28/2017 Office visit 06/28/2017 Office visit Lena El ANTENNA RIGGER 06/24/2017 Office visit Sundeep Russell ANTENNA RIGGER 06/02/2017 Office visit Heena Dumont MD 04/20/2017 Office visit 04/20/2017 Office visit 04/20/2017 Office visit 04/20/2017 Office visit Heena Dumont MD 03/22/2017 Office visit Heena Dumont MD 03/05/2017 Office visit Lena Chaves ANTENNA RIGGER 02/23/2017 Office visit Symone Marie ANTENNA RIGGER 02/21/2017 Office visit Heena Dumont MD 02/15/2017 Office visit Heena Dumont MD 02/02/2017 Office visit Heena Dumont MD 01/07/2017 Office visit Riccardo Cadroza MD 01/03/2017 Office visit Heena Dumont MD 12/15/2016 Office visit Kaylynn Mendez ANTENNA RIGGER 12/02/2016 Office visit Heena Dumont MD 11/23/2016 Zuleika Hoskins MD 11/23/2016 Office visit Kaylynn Mendez ANTENNA RIGGER 11/17/2016 Office visit Kaylynn Mendez ANTENNA RIGGER 11/05/2016 Office visit Riccardo Cardoza MD 11/02/2016 Office visit Heena Dumont MD 10/06/2016 Office visit Kaylynn Mendez ANTENNA RIGGER 09/22/2016 Office visit Heena Dumont MD 09/09/2016 Office visit Kaylynn Mendez ANTENNA RIGGER 08/27/2016 Office visit Riccardo Cardoza MD 08/26/2016 Office visit Heena Dumont MD 07/09/2016 Office visit Riccardo Cardoza MD 07/06/2016 Office visit Heena Dumont MD 06/18/2016 Office visit Kaylynn Mendez ANTENNA RIGGER 06/07/2016 Office visit Sundeep Russell ANTENNA RIGGER 06/04/2016 Office visit Heena Dumont MD 05/13/2016 Office visit Heena Dumont MD 05/03/2016 Office visit Heena Dumont MD 04/26/2016 Office visit Kaylynn Mendez ANTENNA RIGGER 04/14/2016 Office visit Heena Dumont MD 04/13/2016 Office visit Kaylynn Mendez ANTENNA RIGGER 04/02/2016 Office visit Lena El ANTENNA RIGGER 04/02/2016 Office visit Heena Dumont MD 03/26/2016 Office visit Yesica Falcon ANTENNA RIGGER 03/17/2016 Office visit Heena Dumont MD 03/05/2016 Office visit Kaylynn Mendez ANTENNA RIGGER 02/16/2016 Office visit Heena Dumont MD 02/14/2016 Office visit Na Jones ANTENNA RIGGER 01/16/2016 Office visit Heena Dumont MD 12/16/2015 Office visit Heena Dumont MD 11/24/2015 Office visit Kaylynn Mendez ANTENNA RIGGER 11/18/2015 Office visit Heena Dumont MD 11/03/2015 Office visit Sundeep Rusesll ANTENNA RIGGER 10/20/2015 Office visit Kaylynn Mendez ANTENNA RIGGER 09/23/2015 Office visit Kaylynn Mendez ANTENNA RIGGER 09/16/[address] Pepe Figueroa MD 09/02/2015 Office visit Kaylynn Mendez ANTENNA RIGGER 09/01/2015 Office visit Kaylynn Mendez ANTENNA RIGGER 07/30/2015 Office visit Heena Dumont MD 07/15/2015 Office visit Kaylynn Mendez ANTENNA RIGGER 07/04/2015 Office visit Heena Dumont MD 06/06/2015 Office visit Heena Dumont MD 06/06/2015 Office visit Kaylynn Mendez ANTENNA RIGGER 06/02/2015 Office visit Kaylynn Walker ANTENNA RIGGER 05/26/2015 Office visit Kaylynn Walker ANTENNA RIGGER 05/20/2015 Office visit Kaylynn Mendez ANTENNA RIGGER 05/08/2015 Office visit Heena Dumont MD 05/06/2015 Office visit Kaylynn Mendez ANTENNA RIGGER 04/29/2015 Office visit Kaylynn Mendez ANTENNA RIGGER 03/27/2015 Voided Brittni Yanez ANTENNA RIGGER 03/21/2015 Office visit Heena Dumont MD 03/12/2015 Office visit Kaylynn Mendez ANTENNA RIGGER 02/26/2015 Office visit Brittni Yanez ANTENNA RIGGER 02/13/2015 Office visit Heena Dumont MD 01/15/2015 Office visit Brittni Yanez ANTENNA RIGGER 01/13/2015 Office visit Heena Dumont MD 01/08/[address] Carol Fowler MD 01/01/2015 Office visit Brittni Yanez ANTENNA RIGGER 12/13/2014 Office visit Heena Dumont MD 11/27/2014 Office visit Kaylynn Mendez ANTENNA RIGGER 11/14/2014 Office visit Heena Dumont MD 10/18/2014 Office visit Heena Dumont MD 10/17/2014 Hospital Eliseo Hoskins MD 10/09/2014 Office visit Heena Dumont MD 09/25/2014 Office visit Heena Dumont MD 09/17/2014 Office visit Kaylynn Mendez ANTENNA RIGGER 09/04/2014 Office visit Heena Dumont MD 08/28/2014 Office visit Kaylynn Mendez ANTENNA RIGGER 08/23/2014 [facility] Eliseo Hoskins MD 08/01/2014 Office visit aKylynn Mendez ANTENNA RIGGER 07/29/2014 Office visit Heena Dumont MD 07/25/2014 Nurse visit Heena Dumont MD 07/17/2014 Office visit Kaylynn Mendez ANTENNA RIGGER 07/11/2014 Office visit Heena Dumont MD 07/01/2014 Office visit Heena Dumont MD 06/25/2014 Office visit Kaylynn Mendez ANTENNA RIGGER 06/12/2014 Office visit Kaylynn Mendez ANTENNA RIGGER 06/06/2014 Office visit Kaylynn Mendez ANTENNA RIGGER 05/27/2014 Office visit Heena Dumont MD 04/20/2014 Office visit Yesica Falcon ANTENNA RIGGER 03/29/2014 Office visit Na Jones ANTENNA RIGGER 03/15/2014 Office visit Henea Dumont MD 2014 Office visit Heena Dumont MD 2014 Hospital John Hoskins MD 02/27/2014 Nurse visit Heena Dumont MD 02/13/2014 Office visit Lena El ANTENNA RIGGER 02/07/2014 Office visit Heena Dumont MD 02/03/2014 Office visit Na Jones ANTENNA RIGGER 01/30/2014 Office visit Kaylynn Mendez ANTENNA RIGGER 01/24/2014 Office visit Sundeep Russell ANTENNA RIGGER 01/16/2014 Office visit Kaylynn Mendez ANTENNA RIGGER 01/10/2014 Nurse visit Kaylynn Mendez ANTENNA RIGGER 01/08/2014 Office visit Kaylynn Walker ANTENNA RIGGER 12/05/2013 Office visit Kaylynn Walker ANTENNA RIGGER 11/21/2013 Office visit Kaylynn Walker ANTENNA RIGGER 10/23/2013 Office visit Brittni Yanez ANTENNA RIGGER 10/17/2013 Nurse visit Heena Dumont MD 10/12/2013 Office visit Kaylynn Walker ANTENNA RIGGER 10/02/2013 Office visit Heena Dumont MD 09/20/2013 Nurse visit Kaylynn Walker ANTENNA RIGGER 09/20/2013 Voided Heena Dumont MD 09/14/2013 Office visit Kaylynn Walker ANTENNA RIGGER 09/05/2013 Office visit Sundeep Russell ANTENNA RIGGER 09/04/2013 Nurse visit Kaylynn Walker ANTENNA RIGGER 08/31/2013 Office visit Kaylynn Walker ANTENNA RIGGER 08/23/2013 Office visit Heena Dumont MD 08/10/2013 Office visit Kaylynn Walker ANTENNA RIGGER 07/25/2013 Office visit Kaylynn Walker ANTENNA RIGGER 07/18/2013 Office visit Kaylynn Walker ANTENNA RIGGER 07/12/2013 Office visit Kaylynn Walker ANTENNA RIGGER 06/28/2013 Nurse visit Kaylynn Walker ANTENNA RIGGER 06/14/2013 Nurse visit Kaylynn Walker ANTENNA RIGGER 06/08/2013 Nurse visit Kaylynn Walker ANTENNA RIGGER 05/31/2013 Nurse visit Chadd Norris DO 05/18/2013 Office visit Terese Davidson MD 05/16/2013 Office visit Kaylynn Mendez ANTENNA RIGGER 05/09/2013 Office visit Kaylynn Mendez ANTENNA RIGGER 04/29/2013 [facility] Eliseo Hoskins MD 04/25/2013 Nurse visit Kaylynn Walker ANTENNA RIGGER 04/17/2013 Office visit Kaylynn Walker ANTENNA RIGGER 04/03/2013 Nurse visit Kaylynn Walker ANTENNA RIGGER 04/03/2013 Office visit Terese Davidson MD 03/28/2013 Office visit Sundeep Russell ANTENNA RIGGER 03/21/2013 Office visit Kaylynn Mendez ANTENNA RIGGER 03/20/2013 Office visit Terese Davidson MD 03/14/2013 Nurse visit Kaylynn Mendez ANTENNA RIGGER 03/05/2013 Nurse visit Kaylynn Walker ANTENNA RIGGER 02/19/2013 Office visit Terese Davidson MD 02/16/2013 Nurse visit Kaylynn Mendez ANTENNA RIGGER 02/09/2013 Office visit Sundeep Russell ANTENNA RIGGER 02/08/2013 Nurse visit Kaylynn Walker ANTENNA RIGGER 02/01/2013 Nurse visit Kaylynn Walker ANTENNA RIGGER 01/26/2013 Nurse visit Sabrina Mendez [employer] 01/25/2013 Office visit Kaylynn Mendez ANTENNA RIGGER 01/22/2013 Office visit Yoan Castaneda MD 01/18/2013 Nurse visit Kaylynn Walker ANTENNA RIGGER 01/11/2013 Nurse visit Kaylynn Walker ANTENNA RIGGER 01/05/2013 Nurse visit Kaylynn Walker ANTENNA RIGGER 12/29/2012 Office visit Kaylynn Walker ANTENNA RIGGER 11/27/2012 Office visit Kaylynn Walker ANTENNA RIGGER 11/08/2012 Office visit Odell Tierney MD 11/08/2012 Voided Odell Tierney MD 11/07/2012 Office visit Kaylynn Walker ANTENNA RIGGER 10/31/2012 [facility] John Hoskins MD 10/31/2012 Office visit Kaylynn Walker ANTENNA RIGGER 10/19/2012 Office visit Genoveva Ayala ANTENNA RIGGER 10/10/2012 Office visit Kaylynn Walker ANTENNA RIGGER 10/03/2012 Office visit Kaylynn Walker ANTENNA RIGGER 09/26/2012 Office visit Kaylynn Walker ANTENNA RIGGER 09/06/2012 Office visit Kaylynn Walker ANTENNA RIGGER 09/06/2012 Office visit Odell Tierney MD 08/31/2012 Voided Kaylynn Mendez ANTENNA RIGGER 07/28/2012 Office visit Kaylynn Walker ANTENNA RIGGER 07/27/2012 Office visit David Joyner DO 07/20/2012 [facility] 07/13/2012 [facility] DO 07/11/2012 Office visit Kaylynn Mendez ANTENNA RIGGER 06/27/2012 [facility] Odell Tierney MD 06/21/2012 Office visit David Joyner DO 06/21/2012 Office visit Odell Tierney MD 06/20/2012 Office visit Brittni Yanez ANTENNA RIGGER 06/06/2012 Office visit Odell Tierney MD 05/03/2012 Office visit Kaylynn Mendez ANTENNA RIGGER 04/28/2012 Office visit Brittni Yanez ANTENNA RIGGER 04/11/2012 Office visit Kaylynn Mendez ANTENNA RIGGER 04/06/2012 [facility] John Hoskins MD 03/30/2012 Office visit Kaylynn Walker ANTENNA RIGGER 03/15/2012 Office visit Kaylynn Andrea ANTENNA RIGGER 03/15/2012 Office visit Odell Tierney MD 02/09/2012 Office visit Kaylynn Walker ANTENNA RIGGER 12/23/2011 Office visit Kaylynn Walker ANTENNA RIGGER 11/02/2011 Office visit Kaylynn Walker ANTENNA RIGGER 10/14/2011 Office visit Kaylynn Walker ANTENNA RIGGER 09/27/2011 Office visit Kaylynn Walker ANTENNA RIGGER 08/19/2011 Hospital John Hoskins MD 08/18/2011 [facility] John Hoskins MD 08/18/2011 Office visit Kaylynn Walker ANTENNA RIGGER 08/02/2011 Office visit Kaylynn Walker ANTENNA RIGGER 07/08/2011 Office visit Kaylynn Mendez ANTENNA RIGGER 07/05/2011 Office visit Odell Tierney MD 06/15/2011 Office visit Kaylynn Mendez ANTENNA RIGGER 05/14/2011 Office visit Kaylynn Mendez ANTENNA RIGGER 05/11/2011 Office visit Odell Tierney MD 04/28/2011 Office visit Kaylynn Mendez ANTENNA RIGGER 03/02/2011 Office visit Chadd Norris DO 02/17/2011 [...]
--- OUTSIDE RECORDS SUMMARY | 2018-05-09 14:52 | XMS REPORT ---
Author Author Aniket Mayen Organization [facility] Address [address] [place], [place] [id number] Care Team Providers Care Inspector Subassemblies Name Role Phone Aniket Mayen PCP Heena [...] 01/19/2016 APPLY BY EXTERNAL ROUTE ONCE DAILY [employer] IQ Meter miscellaneous kit 01/21/2016 test 2 [...] 08/27/2014 use as directed for 99 days Morganza 5-325 mg oral tablet 06/17/2014 06/27/2014 take [...] a day as needed for 30 days esvivxww-eszankfkx-KX 3.5-10,000-1 mg/mL-unit/mL-% otic drops,suspension 201401/08/2015 instill 4 [...] Ok for similiar substitution or individual components. fbpylmag-munjdebla-CN 3.5-10,000-1 mg/mL-unit/mL-% otic drops,suspension 201607/23/2016 instill 4 [...] Reviewed 04/28/2011 12:00 AM Decadron 1 mg [facility]#[id number] (Jr) Reviewed 04/28/2011 12:00 AM Depo-Medrol 80 mg N[facility]#[id number]-Rohvqjoh Reviewed 09/02/2015 12:00 AM Toradol 60 Mg NDC#7044-8841-65 Reviewed 09/02/2015 12:00 AM Phenergan, Up to 50 Mg RHC Medicaid Reviewed 09/16/2015 12:00 AM Toradol 60 Mg [facility]#6998-9072-23 Reviewed 09/16/2015 12:00 AM Phenergan Up to 50 mg RHC Medicare Reviewed 05/11/2011 12:00 AM N BLOCK INJ OCCIPITAL Reviewed 05/11/2011 12:00 AM Kenalog On-[address]-20 ANNA Reviewed 11/13/2015 12:00 AM ASSAY OF [...] SC/IM Reviewed 07/08/2011 12:00 AM Toradol,15mg [facility]#[id number], [place] Reviewed 07/08/2011 12:00 AM Phenergan 50 Mg Im [facility] 3138-3960-40 [facility] Reviewed 01/21/2016 12:00 AM ECG MONIT/REPRT UP TO 48 HRS Returned 08/02/2011 12:00 AM THER/PROPH/DIAG INJ SC/IM Reviewed 08/02/2011 12:00 AM Decadron 1 mg [facility]#[id number] (Jr) Reviewed 08/02/2011 12:00 AM Depo-Medrol 80 mg [facility]#[id number]-Ojhnbwhj Reviewed 03/05/2016 12:00 AM COMPLETE CBC W/AUTO [...] Reviewed 09/27/2011 12:00 AM Depo-Medrol 80 mg [facility]#[id number]-Dupvkufv Reviewed 09/27/2011 12:00 AM Depo-Medrol 40 mg [facility]#[id number] Reviewed 07/06/2016 12:00 AM CHEST X-RAY 4/> [...] Reviewed 12/23/2011 12:00 AM Decadron 1 mg [facility]#[id number] (Jr) Reviewed 12/23/2011 12:00 AM Depo-Medrol 80 mg [facility]#[id number]-Tmpvvfzj Reviewed 11/02/2016 11:45 AM URINALYSIS AUTO W/O [...] 02/09/2012 12:00 AM Decadron 1 mg [facility]#[id number] (Jr) Reviewed 02/09/2012 12:00 AM Depo-Medrol 80 mg [facility]#[id number]-Avdgqulx Reviewed 02/21/2017 12:00 AM CULTURE OTHR SPECIMN AEROBIC Returned 02/21/2017 12:00 AM INFLUENZA ASSAY W/OPTIC Returned 02/23/2017 12:00 AM COMPLETE CBC W/AUTO DIFF WBC Reviewed 02/23/2017 12:00 AM X-RAY EXAM OF KNEE 3 Returned 03/15/2012 12:00 AM N BLOCK INJ OCCIPITAL Reviewed 03/15/2012 12:00 AM Kenalog Lp-[address]-20 ANNA Reviewed 04/11/2012 12:00 AM COMPLETE CBC [...] 12:00 AM Decadron, Per 1 Mg [facility]# [address]-23 Reviewed 06/20/2012 12:00 AM Depo-Medrol, Per 80 Mg N[facility]#6834-0422-14 Reviewed 09/06/2017 12:00 AM RADEX FOOT COMPLETE MINIMUM 3 VIEWS Returned 09/06/2017 12:00 AM X-RAY EXAM RIBS UNI 2 VIEWS Returned 08/15/2017 12:00 AM COMPLETE CBC W/AUTO DIFF WBC Returned 08/15/2017 12:00 AM COMPREHEN METABOLIC PANEL Returned 08/15/2017 12:00 AM URINALYSIS AUTO W/SCOPE Returned 11/02/2017 12:00 AM COMPLETE CBC W/AUTO DIFF WBC Reviewed 11/02/2017 12:00 AM METABOLIC PANEL TOTAL CA Reviewed 11/16/2017 12:00 AM MRI BRAIN STEM W/O & W/DYE Returned 09/06/2012 12:00 AM N BLOCK INJ OCCIPITAL Reviewed 09/06/2012 12:00 AM Kenalog Qs-[address]-20 ANNA Reviewed 09/06/2012 12:00 AM X-RAY EXAM RIBS UNI 2 VIEWS Reviewed 09/26/2012 12:00 AM THER/PROPH/DIAG INJ SC/IM Reviewed 09/26/2012 12:00 AM Decadron, Per 1 Mg [place]# [address]-63 Reviewed 09/26/2012 12:00 AM Depo-Medrol, Per 80 Mg [facility]#5416-7398-51 Reviewed 10/03/2012 12:00 AM URINALYSIS AUTO W/O SCOPE Reviewed 10/03/2012 12:00 AM THER/PROPH/DIAG INJ SC/IM Reviewed 10/03/2012 12:00 AM Toradol 60 Mg [facility]#9775-3525-16 Reviewed 10/03/2012 12:00 AM Phenergan, 25Mg [facility]#7310-2865-64 Reviewed 10/19/2012 12:00 AM N BLOCK INJ OCCIPITAL Reviewed 10/19/2012 12:00 AM Kenalog, Per 10 Mg ND#5820-0601-15 Reviewed 10/19/2012 12:00 AM Toradol 30 Mg [facility]#1467-4844-75 Reviewed 10/19/2012 12:00 AM THER/PROPH/DIAG INJ SC/IM Reviewed 10/31/2012 12:00 AM COMPLETE CBC W/AUTO DIFF WBC Reviewed 10/31/2012 12:00 AM COMPREHEN METABOLIC PANEL Reviewed 10/31/2012 12:00 AM LIPID PANEL Reviewed 10/31/2012 12:00 AM ELECTROCARDIOGRAM COMPLETE Reviewed 11/03/2012 12:[address] THORAX W/O & W/DYE Reviewed 11/08/2012 12:00 AM N BLOCK INJ OCCIPITAL Reviewed 11/08/2012 12:00 AM Kenalog Zk-[address]-20 ANNA Reviewed 11/27/2012 12:00 AM COMPLETE CBC [...] 12:00 AM Decadron, Per 1 Mg [facility]# [address]-47 Reviewed 01/25/2013 12:00 AM Depo-Medrol, Per 80 Mg [facility]#0939-5627-20 Reviewed 01/26/2013 12:00 AM IMMUNOTHERAPY ONE INJECTION [...] 12:00 AM Decadron, Per 1 Mg [facility]# [address]-05 Reviewed 05/16/2013 12:00 AM Depo-Medrol, Per 80 Mg [facility]#8406-1215-56 Reviewed 05/31/2013 12:00 AM IMMUNOTHERAPY INJECTIONS Reviewed 06/08/2013 12:00 AM IMMUNOTHERAPY INJECTIONS Reviewed 06/14/2013 12:00 AM IMMUNOTHERAPY INJECTIONS Reviewed 06/28/2013 12:00 AM IMMUNOTHERAPY INJECTIONS Reviewed 07/12/2013 12:00 AM X-RAY EXAM RIBS UNI 2 VIEWS Reviewed 07/18/2013 12:00 AM Toradol 60 Mg [facility]#2214-1415-99 Reviewed 07/18/2013 12:00 AM THER/PROPH/DIAG INJ SC/IM Reviewed 08/23/2013 12:00 AM COMPLETE CBC W/AUTO DIFF WBC Reviewed 08/23/2013 12:00 AM COMPREHEN METABOLIC PANEL Reviewed 08/23/2013 12:00 AM LIPID PANEL Reviewed 08/31/2013 12:00 AM X-RAY EXAM OF LOWER LEG Reviewed 09/04/2013 12:00 AM IMMUNOTHERAPY INJECTIONS Reviewed 09/14/2013 12:00 AM THER/PROPH/DIAG INJ SC/IM Reviewed 09/14/2013 12:00 AM Decadron, Per 1 Mg [facility]# [address]-00 Reviewed 09/14/2013 12:00 AM Depo-Medrol, Per 80 Mg [facility]#9186-5700-89 Reviewed 09/20/2013 12:00 AM IMMUNOTHERAPY INJECTIONS Reviewed [...] INJ OCCIPITAL Reviewed 12/10/2009 12:00 AM Kenalog Tj-[address]-20 ANNA Reviewed 12/16/2009 12:00 AM HIV-1ANTIBODY Reviewed 12/16/2009 12:00 AM COMPLETE CBC W/AUTO DIFF WBC Reviewed 12/16/2009 12:00 AM METABOLIC PANEL TOTAL CA Reviewed 12/16/2009 12:00 AM Type and screen Reviewed 12/16/2009 12:00 AM PROTHROMBIN TIME Reviewed 12/16/2009 12:00 AM THROMBOPLASTIN TIME PARTIAL Reviewed 03/18/2010 12:00 AM DRAIN/INJ JOINT/BURSA W/O US Reviewed 03/18/2010 12:00 AM Kenalog Vx-[address]-20 ANNA Reviewed 11/21/2013 12:00 AM RADEX HAND MINIMUM 3 VIEWS Reviewed 06/03/2010 12:00 AM INJ TRIGGER POINT 1/2 MUSCL Reviewed 06/03/2010 12:00 AM Kenalog per 10Mg Im-[facility]#[address]-60(Niall) Reviewed 12/05/2013 12:00 AM COMPLETE CBC W/AUTO [...] Reviewed 07/23/2010 12:00 AM Kenalog per 10Mg Im-Ndc#[address]-92(Niall) Reviewed 2014 12:00 AM COMPLETE CBC W/AUTO [...] INJ OCCIPITAL Reviewed 10/01/2010 12:00 AM Kenalog Lo-[address]-20 ANNA Reviewed 07/25/2014 12:00 AM THER/PROPH/DIAG INJ [...] Quant,IgM <0.80 RMSF , IgG, EIA Negative [facility] Spotted Fever,IgM 0.51 E. chaffeensis [...] 141 Influenza 04/24/2014 sanofi pasteur PMC FLUZONE [id number] Intramuscular Left Upper Arm 02/27/2014 01/15/2014 141 Influenza 02/13/2015 sanofi pasteur PMC FLUZONE [id number] Intramuscular Left Deltoid 02/13/2015 01/03/2015 140 Tdap 06/06/2015 [employer] SKB BOOSTRIX [id number] Intramuscular Left Deltoid 06/06/2015 07/23/2014 115 Influenza 03/18/2016 sanofi pasteur PMC FLUZONE [id number] Intramuscular Left Deltoid 03/17/2016 01/03/2015 141 History [...] mellitus with hyperglycemia Jun 24 2017 10:33AM assisted (current) use of insulin Jun 24 2017 [...] Date Medicare Part B Medicare [place] [id number] N/A [facility] Comm Plan of [id number] Wednesday, 2012 [facility] Comm [id number] N/A Medicare [facility] Medicare [facility] [id number] N/A Medicare Part A Medicare - Lab/Xray [id number] N/A Medicare Part B Medicare [place] [id number] Monday, February 28, 2000 [place] [facility] [place] [facility] [place] [facility] [id number] Tuesday, November 10, 2009 Medicare Part A Medicare Part A [id number] N/A [place] [employer] - [facility] [employer] - [facility] [id number] May History of Encounters Visit Date Visit Type Provider 12/16/2017 Office visit Aniket Mayen DO 11/16/2017 Office visit Aniket Mayen DO 11/02/2017 Office visit Symone Marie FLAT EXAMINER 10/27/2017 Office visit Kaylynn Mendez FLAT EXAMINER 09/14/2017 Office visit Heena Dumont MD 09/06/2017 Office visit Kaylynn Mendez FLAT EXAMINER 08/15/2017 Office visit Heena Dumont MD 07/18/2017 Office visit Heena Dumont MD 06/28/2017 Office visit 06/28/2017 Office visit Lena El FLAT EXAMINER 06/24/2017 Office visit Sundeep Russell FLAT EXAMINER 06/02/2017 Office visit Heena Dumont MD 04/20/2017 Office visit 04/20/2017 Office visit 04/20/2017 Office visit 04/20/2017 Office visit Heena Dumont MD 03/22/2017 Office visit Heena Dumont MD 03/05/2017 Office visit eLna Chaves FLAT EXAMINER 02/23/2017 Office visit Symone Marie FLAT EXAMINER 02/21/2017 Office visit Heena Dumont MD 02/15/2017 Office visit Heena Dumont MD 02/02/2017 Office visit Heena Dumont MD 01/07/2017 Office visit Riccardo Cardoza MD 01/03/2017 Office visit Heena Dumont MD 12/15/2016 Office visit Kaylynn Mendez FLAT EXAMINER 12/02/2016 Office visit Heena Dumont MD 11/23/2016 Zuleika Hoskins MD 11/23/2016 Office visit Kaylynn Mendez FLAT EXAMINER 11/17/2016 Office visit Kaylynn Mendez FLAT EXAMINER 11/05/2016 Office visit Riccardo Cardoza MD 11/02/2016 Office visit Heena Dumont MD 10/06/2016 Office visit Kaylynn Mendez FLAT EXAMINER 09/22/2016 Office visit Heena Dumont MD 09/09/2016 Office visit Kaylynn Mendez FLAT EXAMINER 08/27/2016 Office visit Riccardo Cardoza MD 08/26/2016 Office visit Heena Dumont MD 07/09/2016 Office visit Riccardo Cardoza MD 07/06/2016 Office visit Heena Dumont MD 06/18/2016 Office visit Kaylynn Mendez FLAT EXAMINER 06/07/2016 Office visit Sundeep Russell FLAT EXAMINER 06/04/2016 Office visit Heena Dumont MD 05/13/2016 Office visit Heena Dumont MD 05/03/2016 Office visit Heena Dumont MD 04/26/2016 Office visit Kaylynn Mendze FLAT EXAMINER 04/14/2016 Office visit Heena Dumont MD 04/13/2016 Office visit Kaylynn Mendez FLAT EXAMINER 04/02/2016 Office visit Lena El FLAT EXAMINER 04/02/2016 Office visit Heena Dumont MD 03/26/2016 Office visit Yesica Falcon FLAT EXAMINER 03/17/2016 Office visit Heena Dumont MD 03/05/2016 Office visit Kaylynn Mendez FLAT EXAMINER 02/16/2016 Office visit Heena Dumont MD 02/14/2016 Office visit Na Jones FLAT EXAMINER 01/16/2016 Office visit Heena Dumont MD 12/16/2015 Office visit Heena Dumont MD 11/24/2015 Office visit Kaylynn Mendez FLAT EXAMINER 11/18/2015 Office visit Heena Dumont MD 11/03/2015 Office visit Sundeep Russell FLAT EXAMINER 10/20/2015 Office visit Kaylynn Mendez FLAT EXAMINER 09/23/2015 Office visit Kaylynn Mendez FLAT EXAMINER 09/16/[address] Pepe Figueroa MD 09/02/2015 Office visit Kaylynn Mendez FLAT EXAMINER 09/01/2015 Office visit Kaylynn Mendez FLAT EXAMINER 07/30/2015 Office visit Heena Dumont MD 07/15/2015 Office visit Kaylynn Mendez FLAT EXAMINER 07/04/2015 Office visit Heena Dumont MD 06/06/2015 Office visit Heena Dumont MD 06/06/2015 Office visit Kaylynn Mendez FLAT EXAMINER 06/02/2015 Office visit Kaylynn Walker FLAT EXAMINER 05/26/2015 Office visit Kaylynn Walker FLAT EXAMINER 05/20/2015 Office visit Kaylynn Mendez FLAT EXAMINER 05/08/2015 Office visit Heena Dumont MD 05/06/2015 Office visit Kaylynn Mendez FLAT EXAMINER 04/29/2015 Office visit Kaylynn Mendez FLAT EXAMINER 03/27/2015 Voided Brittni Yanez FLAT EXAMINER 03/21/2015 Office visit Heena Dumont MD 03/12/2015 Office visit Kaylynn Mendez FLAT EXAMINER 02/26/2015 Office visit Brittni Yanez FLAT EXAMINER 02/13/2015 Office visit Heena Dumont MD 01/15/2015 Office visit Brittni Yanez FLAT EXAMINER 01/13/2015 Office visit Heena Dumont MD 01/08/[address] Carol Fowler MD 01/01/2015 Office visit Brittni Yanez FLAT EXAMINER 12/13/2014 Office visit Heena Dumont MD 11/27/2014 Office visit Kaylynn Mendez FLAT EXAMINER 11/14/2014 Office visit Heena Dumont MD 10/18/2014 Office visit Heena Dumont MD 10/17/2014 Hospital Eliseo Hoskins MD 10/09/2014 Office visit Heena Dumont MD 09/25/2014 Office visit Heena Dumont MD 09/17/2014 Office visit Kaylynn Mendez FLAT EXAMINER 09/04/2014 Office visit Heena Dumont MD 08/28/2014 Office visit Kaylynn Mendez FLAT EXAMINER 08/23/2014 [facility] Eliseo Hoskins MD 08/01/2014 Office visit Kaylynn Mendez FLAT EXAMINER 07/29/2014 Office visit Heena Dumont MD 07/25/2014 Nurse visit Heena Dumont MD 07/17/2014 Office visit Kaylynn Mendez FLAT EXAMINER 07/11/2014 Office visit Heena Dumont MD 07/01/2014 Office visit Heena Dumont MD 06/25/2014 Office visit Kaylynn Mendez FLAT EXAMINER 06/12/2014 Office visit Kaylynn Mendez FLAT EXAMINER 06/06/2014 Office visit Kaylynn Mendez FLAT EXAMINER 05/27/2014 Office visit Heena Dumont MD 04/20/2014 Office visit Yesica Falcon FLAT EXAMINER 03/29/2014 Office visit Na Jones FLAT EXAMINER 03/15/2014 Office visit Heena Dumont MD 2014 Office visit Heena Dumont MD 2014 Hospital John Hoskins MD 02/27/2014 Nurse visit Heena Dumont MD 02/13/2014 Office visit Lena El FLAT EXAMINER 02/07/2014 Office visit Heena Dumont MD 02/03/2014 Office visit Na Jones FLAT EXAMINER 01/30/2014 Office visit Kaylynn Mendez FLAT EXAMINER 01/24/2014 Office visit Sundeep Russell FLAT EXAMINER 01/16/2014 Office visit Kaylynn Mendez FLAT EXAMINER 01/10/2014 Nurse visit Kaylynn Mendez FLAT EXAMINER 01/08/2014 Office visit Kaylynn Walker FLAT EXAMINER 12/05/2013 Office visit Kaylynn Walker FLAT EXAMINER 11/21/2013 Office visit Kaylynn Walker FLAT EXAMINER 10/23/2013 Office visit Brittni Yanez FLAT EXAMINER 10/17/2013 Nurse visit Heena Dumont MD 10/12/2013 Office visit Kaylynn Walker FLAT EXAMINER 10/02/2013 Office visit Heena Dumont MD 09/20/2013 Nurse visit Kaylynn Walker FLAT EXAMINER 09/20/2013 Voided Heena Dumont MD 09/14/2013 Office visit Kaylynn Walker FLAT EXAMINER 09/05/2013 Office visit Sundeep Russell FLAT EXAMINER 09/04/2013 Nurse visit Kaylynn Walker FLAT EXAMINER 08/31/2013 Office visit Kaylynn Walker FLAT EXAMINER 08/23/2013 Office visit Heena Dumont MD 08/10/2013 Office visit Kaylynn Walker FLAT EXAMINER 07/25/2013 Office visit Kaylynn Walker FLAT EXAMINER 07/18/2013 Office visit Kaylynn Walker FLAT EXAMINER 07/12/2013 Office visit Kaylynn Walker FLAT EXAMINER 06/28/2013 Nurse visit Kaylynn Walker FLAT EXAMINER 06/14/2013 Nurse visit Kaylynn Walker FLAT EXAMINER 06/08/2013 Nurse visit Kaylynn Walker FLAT EXAMINER 05/31/2013 Nurse visit Chadd Norris DO 05/18/2013 Office visit Terese Davidson MD 05/16/2013 Office visit Kaylynn Mendez FLAT EXAMINER 05/09/2013 Office visit Kaylynn Mendez FLAT EXAMINER 04/29/2013 [facility] Eliseo Hoskins MD 04/25/2013 Nurse visit Kaylynn Walker FLAT EXAMINER 04/17/2013 Office visit Kaylynn Walker FLAT EXAMINER 04/03/2013 Nurse visit Kaylynn Walker FLAT EXAMINER 04/03/2013 Office visit Terese Davidson MD 03/28/2013 Office visit Sundeep Russell FLAT EXAMINER 03/21/2013 Office visit Kaylynn Mendez FLAT EXAMINER 03/20/2013 Office visit Terese Davidson MD 03/14/2013 Nurse visit Kaylynn Mendez FLAT EXAMINER 03/05/2013 Nurse visit Kaylynn Walker FLAT EXAMINER 02/19/2013 Office visit Terese Davidson MD 02/16/2013 Nurse visit Kaylynn Mendez FLAT EXAMINER 02/09/2013 Office visit Sundeep Russell FLAT EXAMINER 02/08/2013 Nurse visit Kaylynn Walker FLAT EXAMINER 02/01/2013 Nurse visit Kaylynn Walker FLAT EXAMINER 01/26/2013 Nurse visit Sabrina Mendez BOOKING OFFICER 01/25/2013 Office visit Kaylynn Mendez FLAT EXAMINER 01/22/2013 Office visit Yoan Castaneda MD 01/18/2013 Nurse visit Kaylynn Walker FLAT EXAMINER 01/11/2013 Nurse visit Kaylynn Walker FLAT EXAMINER 01/05/2013 Nurse visit Kaylynn Walker FLAT EXAMINER 12/29/2012 Office visit Kaylynn Walker FLAT EXAMINER 11/27/2012 Office visit Kaylynn Walker FLAT EXAMINER 11/08/2012 Office visit Odell Tierney MD 11/08/2012 Voided Odell Tierney MD 11/07/2012 Office visit Kaylynn Walker FLAT EXAMINER 10/31/2012 [facility] John Hoskins MD 10/31/2012 Office visit Kaylynn Walker FLAT EXAMINER 10/19/2012 Office visit Genoveva Ayala FLAT EXAMINER 10/10/2012 Office visit Kaylynn Walker FLAT EXAMINER 10/03/2012 Office visit Kaylynn Walker FLAT EXAMINER 09/26/2012 Office visit Kaylynn Walker FLAT EXAMINER 09/06/2012 Office visit Kaylynn Walker FLAT EXAMINER 09/06/2012 Office visit Odell Tierney MD 08/31/2012 Voided Kaylynn Mendez FLAT EXAMINER 07/28/2012 Office visit Kaylynn Walker FLAT EXAMINER 07/27/2012 Office visit David Joyner DO 07/20/2012 [facility] 07/13/2012 [facility] DO 07/11/2012 Office visit Kaylynn Mendez FLAT EXAMINER 06/27/2012 [facility] Odell Tierney MD 06/21/2012 Office visit David Joyner DO 06/21/2012 Office visit Odell Tierney MD 06/20/2012 Office visit Brittni Yanez FLAT EXAMINER 06/06/2012 Office visit Odell Tierney MD 05/03/2012 Office visit Kaylynn Mendez FLAT EXAMINER 04/28/2012 Office visit Brittni Yanez FLAT EXAMINER 04/11/2012 Office visit Kaylynn Mendez FLAT EXAMINER 04/06/2012 [facility] John Hoskins MD 03/30/2012 Office visit Kaylynn Walker FLAT EXAMINER 03/15/2012 Office visit Kaylynn Andrea FLAT EXAMINER 03/15/2012 Office visit Odell Tierney MD 02/09/2012 Office visit Kaylynn Walker FLAT EXAMINER 12/23/2011 Office visit Kaylynn Walker FLAT EXAMINER 11/02/2011 Office visit Kaylynn Walker FLAT EXAMINER 10/14/2011 Office visit Kaylynn Walker FLAT EXAMINER 09/27/2011 Office visit Kaylynn Walker FLAT EXAMINER 08/19/2011 Hospital John Hoskins MD 08/18/2011 [facility] John Hoskins MD 08/18/2011 Office visit Kaylynn Walker FLAT EXAMINER 08/02/2011 Office visit Kaylynn Walker FLAT EXAMINER 07/08/2011 Office visit Kaylynn Mendez FLAT EXAMINER 07/05/2011 Office visit Odell Tierney MD 06/15/2011 Office visit Kaylynn Mendez FLAT EXAMINER 05/14/2011 Office visit Kaylynn Mendez FLAT EXAMINER 05/11/2011 Office visit Odell Tierney MD 04/28/2011 Office visit Kaylynn Mendez FLAT EXAMINER 03/02/2011 Office visit Chadd Norris DO 02/17/2011 [...]
--- OUTSIDE RECORDS SUMMARY | 2018-05-09 14:58 | XMS REPORT ---
Author Author Heena Dumont Organization [facility] Address [address] [place], [place] [id number] Care Team Providers Care Ctrs Name Role Phone Heena Dumont PCP Heena Dumont PreferredProvider Allergies and Adverse [...] ORAL ROUTE QD PRN FOR BACK PAIN baclofen 10 mg oral tablet 03/07/2014 1 TABLET BY ORAL ROUTE 3 TIMES PER DAY PRN MUSCLE SPASM baclofen 10 mg oral tablet 06/09/2014 1 TABLET BY ORAL ROUTE 3 TIMES PER DAY PRN MUSCLE SPASM multivitamin oral capsule 07/02/2014 TAKE 1 CAPSULE BY ORAL ROUTE DAILY FOR 30 DAYS baclofen 10 mg oral tablet 07/31/2014 1 TABLET BY ORAL ROUTE 3 TIMES PER DAY PRN MUSCLE SPASM magnesium oxide 400 mg oral capsule take [...] DAILY AT THE SAME TIME EACH DAY metoclopramide HCl 5 mg oral tablet take 1 tab by oral route 4 times per day 30 minutes before meals and at bedtime clobetasol-emollient 0.05 % topical foam 01/19/2016 APPLY BY EXTERNAL ROUTE ONCE DAILY OneToRUNform IQ Meter miscellaneous kit 01/21/2016 test 2 x daily, Dx: E11.9, 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 Larry Mandel Lancjaxson 33 gauge miscellaneous [facility] 01/21/2016 use as directed cetirizine 10 mg oral tablet 01/26/2016 TAKE 1 TABLET BY MOUTH EVERY DAY omeprazole 20 mg oral capsule,delayed release(DR/EC) 03/19/2016 TAKE 1 CAPSULE (20 MG) BY ORAL ROUTE ONCE DAILY BEFORE A MEAL FOR 30 DAYS omeprazole 20 mg oral capsule,delayed release(DR/EC) 07/05/2016 TAKE 1 CAPSULE (20 MG) BY ORAL ROUTE ONCE DAILY BEFORE A MEAL FOR 30 DAYS cetirizine 10 mg oral tablet 08/23/2016 TAKE 1 TABLET BY MOUTH EVERY DAY Geodon 60 mg oral capsule take 1 capsule (60 mg) by oral route once daily with food Jardiance 10 mg oral tablet take 1 tablet (10 mg) by oral route once daily in the morning ProAir HFA 90 mcg/actuation inhalation HFA aerosol inhaler 11/22/2016 inhale 1 puff (90 mcg) by inhalation route every 6 hours as needed potassium chloride 10 mEq oral capsule, extended release 11/29/2016 TAKE 1 CAPSULE (10 MEQ) BY ORAL ROUTE ONLY WHEN TAKING LASIX. cetirizine 10 mg oral tablet 12/06/2016 TAKE 1 TABLET BY MOUTH EVERY DAY gentamicin 0.3 % ophthalmic (eye) drops 02/25/2017 instill 1 drop into both eyes by ophthalmic route every 4 hours for 7 days Macrobid 100 mg oral capsule 06/24/2017 take 1 capsule (100 mg) by oral route every 12 hours with food for 7 days triamcinolone acetonide 0.5 % topical ointment 06/28/2017 apply a thin layer to the affected area(s) by topical route 3 times per day for 90 days albuterol sulfate 2.5 mg /3 mL (0.083 %) inhalation solution for nebulization 07/19/2017 inhale 3 milliliters (2.5 mg) by nebulization route every 8 hours for 30 days montelukast 10 mg oral tablet 07/19/2017 TAKE 1 TABLET BY MOUTH EVERY EVENING FOR 30 DAYS Savella 50 mg oral tablet 08/01/2017 11/29/2017 TAKE 1 TABLET BY MOUTH TWICE DAILY naproxen 250 mg oral tablet 09/12/2017 take 1 tablet (250 mg) by oral route 2 times per day with food bumetanide 1 mg oral tablet 09/12/2017 TAKE 1 TABLET (1 MG) BY ORAL ROUTE ONCE DAILY FOR 7 DAYS phenazopyridine 100 mg oral tablet take 1 tablet (100 mg) by oral route 3 times per day after meals 4 days of the week Flomax 0.4 mg oral capsule,extended release 24hr take 1 capsule (0.4 mg ) by oral route once daily 1/2 hour following the same meal each day Name Start Date Expiration Date SIG [...] 08/27/2014 use as directed for 99 days [place] 5-325 mg oral tablet 06/17/2014 06/27/2014 take [...] 2 times a day for 7 days baclofen 10 mg oral tablet 10/18/2014 02/15/2015 1/2 TABLET BY ORAL ROUTE 3 TIMES PER DAY PRN MUSCLE SPASM ondansetron 4 mg oral tablet,disintegrating 12/04/2014 01/03/2015 dissolve 1 tablet by oral route 2 times a day as needed for 30 days dihhupmf-byakrepag-PY 3.5-10,000-1 mg/mL-unit/mL-% otic drops,suspension 201401/08/2015 instill 4 [...] a time then reassess swelling, use PRN potassium chloride 10 mEq oral capsule, extended release 03/21/20152015 take 1 capsule (10 meq) by oral route only when taking lasix. Levaquin 750 mg oral tablet 05/06/2015 05/13/2015 [...] 7 days omeprazole 20 mg oral capsule,delayed release(/EC) 12/16/2015 04/14/2016 take 1 capsule (20 mg) by oral route once daily before a meal for 30 days OneTouch Verio miscellaneous strip 01/21/2016 07/19/2016 Test [...] oral route once daily for 4 days hydrocortisone-acetic acid 1-2 % otic drops 07/07/2016 07/17/2016 instill 2 drops into right ear by otic route 3 times per day. Ok for similiar substitution or individual components. wnjqhoqm-ucmwhqdmt-QF 3.5-10,000-1 mg/mL-unit/mL-% otic drops,suspension 201607/23/2016 instill 4 drops into affected ear(s) by otic route 3 times per day for 7 days atorvastatin 80 mg oral tablet 09/24/2016 03/23/2017 take 1 tablet (80 mg) by oral route once daily for 30 days Riddel said to increase from 40 to 80 due to recent Lipid panel Cipro 500 mg oral tablet 11/01/2016 11/08/2016 take 1 tablet (500 mg) by oral route every 12 hours for 7 days oxycodone 5 mg oral tablet 11/05/2016 11/15/2016 take 1 tablet every 6 hours as needed. doxycycline monohydrate 100 mg oral tablet 11/17/2016 11/24/2016 take 1 tablet (100 mg) by oral route every 12 hours for 7 days hydrocodone-acetaminophen 5-325 mg oral tablet 01/19/2017 01/28/2017 take 1 tablet by oral route BID x 9 days MS Contin 15 mg oral tablet extended release 02/02/2017 2017 take 1 tablet (15 mg) by oral route every 12 hours for 30 days Chantix Starting Month Box 0.5 mg (11)- 1 mg (42) oral tablets,dose pack 201605/30/2017 DIRECTED metoprolol succinate 100 mg oral tablet extended [...] CRUSH, CHEW AND/OR DIVIDE. FOR 30 DAYS Discontinued Name Start Date Discontinued Date SIG [...] bedtime for 30 days per kaylynn increase willa lidocaine 5 % topical adhesive patch,medicated 03/15/2014 [...] once daily at bedtime for 30 days meloxicam 7.5 mg oral tablet 07/02/2014 10/09/2014 [...] HC BMI BSA BMI Percentile O2 Sat(%) 09/14/2017 2:45:00 PM 118 mmHg 80 mmHg [...] 174.375 lbs 64 in 29.9311 kg/m 1.8899 11/02/2011 2:48:00 PM 132 mmHg 68 mmHg [...] 155 lbs 64 in 26.6054 kg/m 1.7818 04/28/2011 9:16:00 AM 118 mmHg 68 mmHg [...] Reviewed 04/28/2011 12:00 AM Decadron 1 mg ND#[id number] (Jr) Reviewed 04/28/2011 12:00 AM Depo-Medrol 80 mg ND#[id number]-Glegrigs Reviewed 09/02/2015 12:00 AM Toradol 60 Mg NDC#0977-7152-85 Reviewed 09/02/2015 12:00 AM Phenergan, Up to 50 Mg RHC Medicaid Reviewed 09/16/2015 12:00 AM Toradol 60 Mg ND#5423-5152-74 Reviewed 09/16/2015 12:00 AM Phenergan Up to 50 mg RHC Medicare Reviewed 05/11/2011 12:00 AM N BLOCK INJ OCCIPITAL Reviewed 05/11/2011 12:00 AM Kenalog Qv-[address]-20 ANNA Reviewed 11/13/2015 12:00 AM ASSAY OF [...] INJ SC/IM Reviewed 07/08/2011 12:00 AM Toradol,15mg [facility]#[id number], [place] Reviewed 07/08/2011 12:00 AM Phenergan 50 Mg Im Nd 5693-1655-22 [place] Reviewed 01/21/2016 12:00 AM ECG MONIT/REPRT UP TO 48 HRS Returned 08/02/2011 12:00 AM THER/PROPH/DIAG INJ SC/IM Reviewed 08/02/2011 12:00 AM Decadron 1 mg [facility]#[id number] (Jr) Reviewed 08/02/2011 12:00 AM Depo-Medrol 80 mg [facility]#[id number]-Xmieodef Reviewed 03/05/2016 12:00 AM COMPLETE CBC W/AUTO DIFF WBC Reviewed 03/05/2016 12:00 AM STREP A ASSAY W/OPTIC Reviewed 03/05/2016 12:00 AM C-REACTIVE PROTEIN Reviewed 03/18/2016 12:00 AM [facility] MEDIC[facility] - flu vaccine administration Reviewed 03/18/2016 [...] Reviewed 09/27/2011 12:00 AM Depo-Medrol 80 mg ND#[id number]-Zxocpisn Reviewed 09/27/2011 12:00 AM Depo-Medrol 40 mg ND#[id number] Reviewed 07/06/2016 12:00 AM CHEST X-RAY 4/> [...] Reviewed 12/23/2011 12:00 AM Decadron 1 mg NDC#[id number] (Jr) Reviewed 12/23/2011 12:00 AM Depo-Medrol 80 mg NDC#[id number]-Oevkrdkd Reviewed 11/02/2016 11:45 AM URINALYSIS AUTO W/O [...] Reviewed 02/09/2012 12:00 AM Decadron 1 mg NDC#[id number] (Jr) Reviewed 02/09/2012 12:00 AM Depo-Medrol 80 mg NDC#[id number]-Tpshfriv Reviewed 02/21/2017 12:00 AM CULTURE OTHR SPECIMN AEROBIC Returned 02/21/2017 12:00 AM INFLUENZA ASSAY W/OPTIC Returned 02/23/2017 12:00 AM COMPLETE CBC W/AUTO DIFF WBC Reviewed 02/23/2017 12:00 AM X-RAY EXAM OF KNEE 3 Returned 03/15/2012 12:00 AM N BLOCK INJ OCCIPITAL Reviewed 03/15/2012 12:00 AM Kenalog Bd-[address]-20 ANNA Reviewed 04/11/2012 12:00 AM COMPLETE CBC [...] 06/20/2012 12:00 AM Decadron, Per 1 Mg [facility]# [address]-81 Reviewed 06/20/2012 12:00 AM Depo-Medrol, Per 80 Mg [facility]#1469-8147-39 Reviewed 09/06/2017 12:00 AM RADEX FOOT COMPLETE MINIMUM 3 VIEWS Returned 09/06/2017 12:00 AM X-RAY EXAM RIBS UNI 2 VIEWS Returned 08/15/2017 12:00 AM COMPLETE CBC W/AUTO DIFF WBC Returned 08/15/2017 12:00 AM COMPREHEN METABOLIC PANEL Returned 08/15/2017 12:00 AM URINALYSIS AUTO W/SCOPE Returned 09/06/2012 12:00 AM N BLOCK INJ OCCIPITAL Reviewed 09/06/2012 12:00 AM Kenalog Mc-[address]-20 ANNA Reviewed 09/06/2012 12:00 AM X-RAY EXAM RIBS UNI 2 VIEWS Reviewed 09/26/2012 12:00 AM THER/PROPH/DIAG INJ SC/IM Reviewed 09/26/2012 12:00 AM Decadron, Per 1 Mg ND# [address]-39 Reviewed 09/26/2012 12:00 AM Depo-Medrol, Per 80 Mg ND#5324-7972-82 Reviewed 10/03/2012 12:00 AM URINALYSIS AUTO W/O SCOPE Reviewed 10/03/2012 12:00 AM THER/PROPH/DIAG INJ SC/IM Reviewed 10/03/2012 12:00 AM Toradol 60 Mg ND#9198-1723-29 Reviewed 10/03/2012 12:00 AM Phenergan, 25Mg ND#0316-6366-30 Reviewed 10/19/2012 12:00 AM N BLOCK INJ OCCIPITAL Reviewed 10/19/2012 12:00 AM Kenalog, Per 10 Mg ND#9374-0884-91 Reviewed 10/19/2012 12:00 AM Toradol 30 Mg ND#8143-7909-30 Reviewed 10/19/2012 12:00 AM THER/PROPH/DIAG INJ SC/IM Reviewed 10/31/2012 12:00 AM COMPLETE CBC W/AUTO DIFF WBC Reviewed 10/31/2012 12:00 AM COMPREHEN METABOLIC PANEL Reviewed 10/31/2012 12:00 AM LIPID PANEL Reviewed 10/31/2012 12:00 AM ELECTROCARDIOGRAM COMPLETE Reviewed 11/03/2012 12:[address] THORAX W/O & W/DYE Reviewed 11/08/2012 12:00 AM N BLOCK INJ OCCIPITAL Reviewed 11/08/2012 12:00 AM Kenalog Dw-[address]-20 ANNA Reviewed 11/27/2012 12:00 AM COMPLETE CBC [...] 01/25/2013 12:00 AM Decadron, Per 1 Mg [facility]# [address]-32 Reviewed 01/25/2013 12:00 AM Depo-Medrol, Per 80 Mg [facility]#2608-6966-22 Reviewed 01/26/2013 12:00 AM IMMUNOTHERAPY ONE INJECTION [...] 05/16/2013 12:00 AM Decadron, Per 1 Mg [facility]# [address]-04 Reviewed 05/16/2013 12:00 AM Depo-Medrol, Per 80 Mg [facility]#7346-3653-03 Reviewed 05/31/2013 12:00 AM IMMUNOTHERAPY INJECTIONS Reviewed 06/08/2013 12:00 AM IMMUNOTHERAPY INJECTIONS Reviewed 06/14/2013 12:00 AM IMMUNOTHERAPY INJECTIONS Reviewed 06/28/2013 12:00 AM IMMUNOTHERAPY INJECTIONS Reviewed 07/12/2013 12:00 AM X-RAY EXAM RIBS UNI 2 VIEWS Reviewed 07/18/2013 12:00 AM Toradol 60 Mg [facility]#3203-0585-86 Reviewed 07/18/2013 12:00 AM THER/PROPH/DIAG INJ SC/IM Reviewed 08/23/2013 12:00 AM COMPLETE CBC W/AUTO DIFF WBC Reviewed 08/23/2013 12:00 AM COMPREHEN METABOLIC PANEL Reviewed 08/23/2013 12:00 AM LIPID PANEL Reviewed 08/31/2013 12:00 AM X-RAY EXAM OF LOWER LEG Reviewed 09/04/2013 12:00 AM IMMUNOTHERAPY INJECTIONS Reviewed 09/14/2013 12:00 AM THER/PROPH/DIAG INJ SC/IM Reviewed 09/14/2013 12:00 AM Decadron, Per 1 Mg [facility]# [address]-15 Reviewed 09/14/2013 12:00 AM Depo-Medrol, Per 80 Mg [facility]#6284-7403-89 Reviewed 09/20/2013 12:00 AM IMMUNOTHERAPY INJECTIONS Reviewed [...] BLOCK INJ OCCIPITAL Reviewed 12/10/2009 12:00 AM Quentni Vj-[address]-20 ANNA Reviewed 12/16/2009 12:00 AM HIV-1ANTIBODY Reviewed 12/16/2009 12:00 AM COMPLETE CBC W/AUTO DIFF WBC Reviewed 12/16/2009 12:00 AM METABOLIC PANEL TOTAL CA Reviewed 12/16/2009 12:00 AM Type and screen Reviewed 12/16/2009 12:00 AM PROTHROMBIN TIME Reviewed 12/16/2009 12:00 AM THROMBOPLASTIN TIME PARTIAL Reviewed 03/18/2010 12:00 AM DRAIN/INJ JOINT/BURSA W/O US Reviewed 03/18/2010 12:00 AM Kenalog Lr-[address]-20 ANNA Reviewed 11/21/2013 12:00 AM RADEX HAND MINIMUM 3 VIEWS Reviewed 06/03/2010 12:00 AM INJ TRIGGER POINT 1/2 MUSCL Reviewed 06/03/2010 12:00 AM Kenalog per 10Mg [facility]#[address]-05(Niall) Reviewed 12/05/2013 12:00 AM COMPLETE CBC W/AUTO [...] Reviewed 07/23/2010 12:00 AM Kenalog per 10Mg Im-[facility]#[address]-55(Niall) Reviewed 2014 12:00 AM COMPLETE CBC W/AUTO [...] INJ OCCIPITAL Reviewed 10/01/2010 12:00 AM Kenalog Hx-[address]-20 ANNA Reviewed 07/25/2014 12:00 AM THER/PROPH/DIAG INJ [...] Quant,IgM <0.80 RMSF , IgG, EIA Negative [facility] Spotted Fever,IgM 0.51 E. chaffeensis ([facility]) [...] CULT SET UP? NO SEDRATE 13.0 mm/hr History Of Immunizations Name Date Admin Mfg Name Mfg Code Trade Name Lot# Route Inj Vis Given Vis Pub CVX Influenza 03/30/2011 Not Entered NE Not Entered Not Entered Not Entered 03/31/2011 05/30/2017 141 Influenza 04/24/2014 sanofi pasteur PMC FLUZONE [id number] Intramuscular Left Upper Arm 02/27/2014 01/15/2014 141 Influenza 02/13/2015 sanofi pasteur PMC FLUZONE [id number] Intramuscular Left Deltoid 02/13/2015 01/03/2015 140 Tdap 06/06/2015 GlaxoSmithKline SKB BOOSTRIX [id number] Intramuscular Left Deltoid 06/06/2015 07/23/2014 115 Influenza 03/18/2016 sanofi pasteur PMC FLUZONE [id number] Intramuscular Left Deltoid 03/17/2016 01/03/2015 141 History [...] Media, Acute Jul 17 2014 10:04AM Asthma b 2014 10:04AM Headache [...] chronic, left Feb 12 2014 4:22PM Vertigo b 12 2014 4:22PM Eustachian tube dysfunction Aug [...] 2016 10:48AM Bulging of cervical intervertebral disc b 2016 3:50PM Cervical spinal stenosis Feb 10 2016 3:50PM Lumbago Feb 10 2016 3:25PM Stenosis, cervical spine Feb 2016 3:25PM Disc disorder of cervical region b 2016 3:25PM Cervicalgia b 10 2016 3:25PM Osteoporosis Jul 16 2016 10:32AM [...] mellitus with hyperglycemia Jun 24 2017 10:33AM alf (current) use of insulin Jun 24 2017 [...] contusion, right, sequela Sep 14 2017 2:48PM Payers Insurance Name Company Name Plan Name Plan Number Policy Number Policy Group Number Start Date Medicare RHC Medicare RHC [id number] N/A [facility] Comm [id number] N/A Medicare Part A Medicare - Lab/Xray [id number] N/A Medicare Part B Medicare Of [place] [id number] Monday, February 28, 2000 [place] [facility] [employer] [facility] [place] [employer] [place] [id number] Tuesday, November 10, 2009 Medicare Part A Medicare Part A [id number] N/A [place] [employer] - RHC [place] [employer] Pro[employer] - RHC [id number] [place] Comm Plan of [id number] Wednesday, May 30, 2012 History of Encounters Visit Date Visit Type Provider 09/14/2017 Office visit Heena Dumont MD 09/06/2017 Office visit Kaylynn Mendez APRN 08/15/2017 Office visit Heena Dumont MD 07/18/2017 Office visit Heena Dumont MD 06/28/2017 Office visit 06/28/2017 Office visit Lena El ASPHALT MACHINE OPERATOR 06/24/2017 Office visit Sundeep Russell ASPHALT MACHINE OPERATOR 06/02/2017 Office visit Heena Dumont MD 04/20/2017 Office visit 04/20/2017 Office visit 04/20/2017 Office visit 04/20/2017 Office visit Heena Dumont MD 03/22/2017 Office visit Heena Dumont MD 03/05/2017 Office visit Lena Chaves ASPHALT MACHINE OPERATOR 02/23/2017 Office visit Symone PolkBarbara Marie ASPHALT MACHINE OPERATOR 02/21/2017 Office visit Heena Dumont MD 02/15/2017 Office visit Heena Dumont MD 02/02/2017 Office visit Heena Dumont MD 01/07/2017 Office visit Riccardo Cardoza MD 01/03/2017 Office visit Heena Dumont MD 12/15/2016 Office visit Kaylynn Mendez ASPHALT MACHINE OPERATOR 12/02/2016 Office visit Heena Dumont MD 11/23/2016 [facility] Eliseo Hoskins MD 11/23/2016 Office visit Kaylynn Mendez ASPHALT MACHINE OPERATOR 11/17/2016 Office visit Kaylynn Mendez ASPHALT MACHINE OPERATOR 11/05/2016 Office visit Riccardo Cardoza MD 11/02/2016 Office visit Heena Dumont MD 10/06/2016 Office visit Kaylynn Mendez ASPHALT MACHINE OPERATOR 09/22/2016 Office visit Heena Dumont MD 09/09/2016 Office visit Kaylynn Mendez ASPHALT MACHINE OPERATOR 08/27/2016 Office visit Riccardo Cardoza MD 08/26/2016 Office visit Heena Dumont MD 07/09/2016 Office visit Riccardo Cardoza MD 07/06/2016 Office visit Heena Dumont MD 06/18/2016 Office visit Kaylynn Mendez ASPHALT MACHINE OPERATOR 06/07/2016 Office visit Sundeep Russell ASPHALT MACHINE OPERATOR 06/04/2016 Office visit Heena Dumont MD 05/13/2016 Office visit Heena Dumont MD 05/03/2016 Office visit Heena Dumont MD 04/26/2016 Office visit Kaylynn Mendez ASPHALT MACHINE OPERATOR 04/14/2016 Office visit Heena Dumont MD 04/13/2016 Office visit Kaylynn Mendez ASPHALT MACHINE OPERATOR 04/02/2016 Office visit Lena El ASPHALT MACHINE OPERATOR 04/02/2016 Office visit Heena Dumont MD 03/26/2016 Office visit Yesica Falcon ASPHALT MACHINE OPERATOR 03/17/2016 Office visit Heena Dumont MD 03/05/2016 Office visit Kaylynn Mendez ASPHALT MACHINE OPERATOR 02/16/2016 Office visit Heena Dumont MD 02/14/2016 Office visit Na Jones ASPHALT MACHINE OPERATOR 01/16/2016 Office visit Heena Dumont MD 12/16/2015 Office visit Heena Dumont MD 11/24/2015 Office visit Kaylynn Mendez ASPHALT MACHINE OPERATOR 11/18/2015 Office visit Heena Dumont MD 11/03/2015 Office visit Sundeep Russell ASPHALT MACHINE OPERATOR 10/20/2015 Office visit Kaylynn Mendez ASPHALT MACHINE OPERATOR 09/23/2015 Office visit Kaylynn Mendez ASPHALT MACHINE OPERATOR 09/16/[address] Pepe Figueroa MD 09/02/2015 Office visit Kaylynn Mendez ASPHALT MACHINE OPERATOR 09/01/2015 Office visit Kaylynn Mendez ASPHALT MACHINE OPERATOR 07/30/2015 Office visit Heena Dumont MD 07/15/2015 Office visit Kaylynn Mendez ASPHALT MACHINE OPERATOR 07/04/2015 Office visit Heena Dumont MD 06/06/2015 Office visit Heena Dumont MD 06/06/2015 Office visit Kaylynn Mendez ASPHALT MACHINE OPERATOR 06/02/2015 Office visit Kaylynn Mendez ASPHALT MACHINE OPERATOR 05/26/2015 Office visit Kaylynn Mendez ASPHALT MACHINE OPERATOR 05/20/2015 Office visit Kaylynn Mendez ASPHALT MACHINE OPERATOR 05/08/2015 Office visit Heena Dumont MD 05/06/2015 Office visit Kaylynn Mendez ASPHALT MACHINE OPERATOR 04/29/2015 Office visit Kaylynn Mendez ASPHALT MACHINE OPERATOR 03/27/2015 Voided Brittni Yanez ASPHALT MACHINE OPERATOR 03/21/2015 Office visit Heena Dumont MD 03/12/2015 Office visit Kaylynn Mendez ASPHALT MACHINE OPERATOR 02/26/2015 Office visit Brittni Yanez ASPHALT MACHINE OPERATOR 02/13/2015 Office visit Heena Dumont MD 01/15/2015 Office visit Brittni Yanez ASPHALT MACHINE OPERATOR 01/13/2015 Office visit Heena Dumont MD 01/08/[address] Carol Fowler MD 01/01/2015 Office visit Brittni Yanez ASPHALT MACHINE OPERATOR 12/13/2014 Office visit Heena Dumont MD 11/27/2014 Office visit Kaylynn Mendez ASPHALT MACHINE OPERATOR 11/14/2014 Office visit Heena Dumont MD 10/18/2014 Office visit Heena Dumont MD 10/17/2014 [facility] John Hoskins MD 10/09/2014 Office visit Heena Dumont MD 09/25/2014 Office visit Heena Dumont MD 09/17/2014 Office visit Kaylynn Mendez ASPHALT MACHINE OPERATOR 09/04/2014 Office visit Heena Dumont MD 08/28/2014 Office visit Kaylynn Mendez ASPHALT MACHINE OPERATOR 08/23/2014 [facility] John Hoskins MD 08/01/2014 Office visit Kaylynn Mendez ASPHALT MACHINE OPERATOR 07/29/2014 Office visit Heena Dumont MD 07/25/2014 Nurse visit Heena Dumont MD 07/17/2014 Office visit Kaylynn Mendez ASPHALT MACHINE OPERATOR 07/11/2014 Office visit Heena Dumont MD 07/01/2014 Office visit Heena Dumont MD 06/25/2014 Office visit Kaylynn Walker ASPHALT MACHINE OPERATOR 06/12/2014 Office visit Kaylynn Walker ASPHALT MACHINE OPERATOR 06/06/2014 Office visit Kaylynn Mendez ASPHALT MACHINE OPERATOR 05/27/2014 Office visit Heena Dumont MD 04/20/2014 Office visit Yesica Falcon ASPHALT MACHINE OPERATOR 03/29/2014 Office visit Na Jones ASPHALT MACHINE OPERATOR 03/15/2014 Office visit Heena Dumont MD 2014 Office visit Heena Dumont MD 2014 [facility] John Hoskins MD 02/27/2014 Nurse visit Heena Dumont MD 02/13/2014 Office visit Lena El ASPHALT MACHINE OPERATOR 02/07/2014 Office visit Heena Dumont MD 02/03/2014 Office visit Na Jones ASPHALT MACHINE OPERATOR 01/30/2014 Office visit Kaylynn Mendez ASPHALT MACHINE OPERATOR 01/24/2014 Office visit Sundeep Russell ASPHALT MACHINE OPERATOR 01/16/2014 Office visit Kaylynn Mendez ASPHALT MACHINE OPERATOR 01/10/2014 Nurse visit Kaylynn Mendez ASPHALT MACHINE OPERATOR 01/08/2014 Office visit Kaylynn Mendez ASPHALT MACHINE OPERATOR 12/05/2013 Office visit Kaylynn Mendez ASPHALT MACHINE OPERATOR 11/21/2013 Office visit Kaylynn Mendez ASPHALT MACHINE OPERATOR 10/23/2013 Office visit Brittni Yanez ASPHALT MACHINE OPERATOR 10/17/2013 Nurse visit Heena Dumont MD 10/12/2013 Office visit Kaylynn Mendez ASPHALT MACHINE OPERATOR 10/02/2013 Office visit Heena Dumont MD 09/20/2013 Nurse visit Kaylynn Mendez ASPHALT MACHINE OPERATOR 09/20/2013 Voided Heena Dumont MD 09/14/2013 Office visit Kaylynn Walker ASPHALT MACHINE OPERATOR 09/05/2013 Office visit Sundeep Russell ASPHALT MACHINE OPERATOR 09/04/2013 Nurse visit Kaylynn Mendez ASPHALT MACHINE OPERATOR 08/31/2013 Office visit Kaylynn Mendez ASPHALT MACHINE OPERATOR 08/23/2013 Office visit Heena Dumont MD 08/10/2013 Office visit Kaylynn Mendez ASPHALT MACHINE OPERATOR 07/25/2013 Office visit Kaylynn Mendez ASPHALT MACHINE OPERATOR 07/18/2013 Office visit Kaylynn Walker ASPHALT MACHINE OPERATOR 07/12/2013 Office visit Kaylynn Walker ASPHALT MACHINE OPERATOR 06/28/2013 Nurse visit Kaylynn Walker ASPHALT MACHINE OPERATOR 06/14/2013 Nurse visit Kaylynn Walker ASPHALT MACHINE OPERATOR 06/08/2013 Nurse visit Kaylynn Walker ASPHALT MACHINE OPERATOR 05/31/2013 Nurse visit Chadd Norris DO 05/18/2013 Office visit Terese Davidson MD 05/16/2013 Office visit Kaylynn Walker ASPHALT MACHINE OPERATOR 05/09/2013 Office visit Kaylynn Walker ASPHALT MACHINE OPERATOR 04/29/2013 [facility] John Hoskins MD 04/25/2013 Nurse visit Kaylynn Walker ASPHALT MACHINE OPERATOR 04/17/2013 Office visit Kaylynn Walker ASPHALT MACHINE OPERATOR 04/03/2013 Nurse visit Kaylynn Walker ASPHALT MACHINE OPERATOR 04/03/2013 Office visit Terese Davidson MD 03/28/2013 Office visit Sundeep Russell ASPHALT MACHINE OPERATOR 03/21/2013 Office visit Kaylynn Walker ASPHALT MACHINE OPERATOR 03/20/2013 Office visit Terese Davidson MD 03/14/2013 Nurse visit Kaylynn Walker ASPHALT MACHINE OPERATOR 03/05/2013 Nurse visit Kaylynn Walker ASPHALT MACHINE OPERATOR 02/19/2013 Office visit Terese Davidson MD 02/16/2013 Nurse visit Kaylynn Walker ASPHALT MACHINE OPERATOR 02/09/2013 Office visit Sundeep Russell ASPHALT MACHINE OPERATOR 02/08/2013 Nurse visit Kaylynn Walker ASPHALT MACHINE OPERATOR 02/01/2013 Nurse visit Kaylynn Walker ASPHALT MACHINE OPERATOR 01/26/2013 Nurse visit Sabrina Menedz SALESPERSON FURNITURE 01/25/2013 Office visit Kaylynn Walker ASPHALT MACHINE OPERATOR 01/22/2013 Office visit Yoan Castaneda MD 01/18/2013 Nurse visit Kaylynn Walker ASPHALT MACHINE OPERATOR 01/11/2013 Nurse visit Kaylynn Walker ASPHALT MACHINE OPERATOR 01/05/2013 Nurse visit Kaylynn Walker ASPHALT MACHINE OPERATOR 12/29/2012 Office visit Kaylynn Walker ASPHALT MACHINE OPERATOR 11/27/2012 Office visit Kaylynn Mendez ASPHALT MACHINE OPERATOR 11/08/2012 Office visit Odell Tierney MD 11/08/2012 Voided Odell Tierney MD 11/07/2012 Office visit Kaylynn Mendez ASPHALT MACHINE OPERATOR 10/31/2012 [facility] John Hoskins MD 10/31/2012 Office visit Kaylynn Walker ASPHALT MACHINE OPERATOR 10/19/2012 Office visit Genoveva Ayala ASPHALT MACHINE OPERATOR 10/10/2012 Office visit Kaylynn Walker ASPHALT MACHINE OPERATOR 10/03/2012 Office visit Kaylynn Walker ASPHALT MACHINE OPERATOR 09/26/2012 Office visit Kaylynn Walker ASPHALT MACHINE OPERATOR 09/06/2012 Office visit Kaylynn Mendez ASPHALT MACHINE OPERATOR 09/06/2012 Office visit Odell Tierney MD 08/31/2012 Voided Kaylynn Mendez ASPHALT MACHINE OPERATOR 07/28/2012 Office visit Kaylynn Andrea ASPHALT MACHINE OPERATOR 07/27/2012 Office visit David Ar DO 07/20/2012 Hospital David Sherifftom DO 07/13/2012 Hospital David Ar DO 07/11/2012 Office visit Kaylynn Mendez [employer] MACHINE OPERATOR 06/27/2012 Hospital Odell Tierney MD 06/21/2012 Office visit David Joyner DO 06/21/2012 Office visit Odell Tierney MD 06/20/2012 Office visit Brittni Yanez [employer] MACHINE OPERATOR 06/06/2012 Office visit Odell Tierney MD 05/03/2012 Office visit Kaylynn Mendez [employer] MACHINE OPERATOR 04/28/2012 Office visit Brittni Yanez [employer] MACHINE OPERATOR 04/11/2012 Office visit Kaylynn Mendez [employer] MACHINE OPERATOR 04/06/2012 Hospital John Hoskins MD 03/30/2012 Office visit Kaylynn Mendez [employer] MACHINE OPERATOR 03/15/2012 Office visit Kaylynn Mendez [employer] MACHINE OPERATOR 03/15/2012 Office visit Odell Tierney MD 02/09/2012 Office visit Kaylynn Mendez [employer] MACHINE OPERATOR 12/23/2011 Office visit Kaylynn Mendez [employer] MACHINE OPERATOR 11/02/2011 Office visit Kaylynn Mendez [employer] MACHINE OPERATOR 10/14/2011 Office visit Kaylynn Mendez [employer] MACHINE OPERATOR 09/27/2011 Office visit Kaylynn Mendez [employer] MACHINE OPERATOR 08/19/2011 Hospital John Hoskins MD 08/18/2011 Hospital John Hoskins MD 08/18/2011 Office visit Kaylynn Mendez [employer] MACHINE OPERATOR 08/02/2011 Office visit Kaylynn Mendez [employer] MACHINE OPERATOR 07/08/2011 Office visit Kaylynn Mendez [employer] MACHINE OPERATOR 07/05/2011 Office visit Odell Tierney MD 06/15/2011 Office visit Kaylynn Mendez [employer] MACHINE OPERATOR 05/14/2011 Office visit Kaylynn Mendez [employer] MACHINE OPERATOR 05/11/2011 Office visit Odell Tierney MD 04/28/2011 Office visit Kaylynn Mendez [employer] MACHINE OPERATOR 03/02/2011 Office visit Chadd Norris DO 02/17/2011 [...]
--- OUTSIDE RECORDS SUMMARY | 2018-05-09 15:03 | XMS REPORT ---
Author Author Heena Dumont Organization [facility] Address [address] [place], [place] [id number] Care Team Providers Care Psych Rn Name Role Phone Heena Dumont PCP Heena Dumont PreferredProvider Allergies and Adverse Reactions Name Reaction Notes Aspirin Methadone Ultram Vicodin Plan of Treatment Planned Activity Comments Planned Date Planned Time Plan/Goal VIDEO SWALLOW 05/08/2015 12:00 AM CMP 09/16/2015 12:00 AM EKG (12-lead electrocardiogram) 11/13/2015 12:00 AM HEMOGLOBIN 12/16/2015 12:00 AM EKG (12-lead electrocardiogram) 10/31/2012 12:[address] (with and without contrast) 11/03/2012 12:[address] (with and without contrast) 11/03/2012 12:00 AM Liver imaging (SPECT) 11/14/2012 12:00 AM Lipase 11/27/2012 12:00 AM Peripheral Blood Smear 11/27/2012 12:00 AM Urine culture 11/27/2012 12:00 AM Allergy Injection Multiple 01/11/2013 12:00 AM Allergy Injection Single 01/26/2013 12:00 AM Allergy Injection Multiple 03/05/2013 12:00 AM allergies 04/30/2016 1:40 PM Peripheral blood smear review by pathologist 12/12/2013 12:00 AM Injection,Subcutaneous/Intramuscul 03/29/2014 12:00 AM Injection,Subcutaneous/Intramuscul 03/29/2014 12:00 AM IM Injection 03/29/2014 12:00 AM Chest X-Ray Pa & Lat 06/12/2014 12:00 AM CBC with Auto 10/01/2014 12:00 AM KUB 09/25/2014 12:00 AM Medications Active Name Start Date Estimated Completion Date SIG Comments Latuda 40 mg oral tablet take 1 tablet (40 mg) by oral route once daily with food (at least 350 calories) Nexium 40 mg oral capsule,delayed release(DR/EC) take [...] route 2 times per day with meals montelukast 10 mg oral tablet 02/25/2014 TAKE 1 TABLET BY MOUTH EVERY EVENING meloxicam 7.5 mg oral tablet 03/07/2014 TAKE 1-2 TABLETS BY ORAL ROUTE QD PRN FOR BACK PAIN baclofen 10 mg oral tablet 03/07/2014 1 TABLET BY ORAL ROUTE 3 TIMES PER DAY PRN MUSCLE SPASM baclofen 10 mg oral tablet 06/09/2014 1 TABLET BY ORAL ROUTE 3 TIMES PER DAY PRN MUSCLE SPASM metoprolol succinate 100 mg oral tablet extended release 24 hr 07/02/2014 1 TABLET BY ORAL ROUTE 1 TIME PER DAY FOR 30 DAYS multivitamin oral capsule 07/02/2014 TAKE 1 CAPSULE [...] (120 mg) by oral route once daily montelukast 10 mg oral tablet 06/06/2015 TAKE 1 TABLET BY MOUTH EVERY EVENING metoprolol succinate 100 mg oral tablet extended release 24 hr 06/18/2015 1 TABLET BY ORAL ROUTE 1 TIME PER DAY FOR 30 DAYS Nasonex 50 mcg/actuation nasal spray,non-aerosol 07/15/2015 spray 2 sprays in each nostril by intranasal route once daily metoprolol succinate 100 mg oral tablet extended release 24 hr 07/23/2015 TAKE 1 TABLET BY MOUTH EVERY DAY Flovent HFA 220 mcg/actuation inhalation HFA aerosol inhaler 09/01/2015 inhale 1 puff (220 mcg) by inhalation route 2 times per day Anoro Ellipta 62.5-25 mcg/actuation inhalation blister with device 09/01/2015 inhale 1 puff by inhalation route once daily at the same time each day Patanol 0.1 % ophthalmic drops 10/20/2015 instill 1 drop into affected eye( s) by ophthalmic route 2 times per day at an interval of 6 to 8 hours metoprolol succinate 100 mg oral tablet extended release 24 hr 11/24/2015 TAKE 1 TABLET BY MOUTH EVERY DAY Anoro Ellipta 62.5-25 mcg/actuation inhalation blister with device 12/02/2015 INHALE 1 PUFF BY INHALATION ROUTE ONCE DAILY AT THE SAME TIME EACH DAY nortriptyline 10 mg oral capsule 12/22/2015 TAKE 1 CAPSULE BY ORAL ROUTE ONCE A DAY (AT BEDTIME) FOR 30 DAYS atorvastatin 40 mg oral tablet take 1 tablet (40 mg) by oral route once daily metoclopramide HCl 5 mg oral tablet take 1 tab by oral route 4 times per day 30 minutes before meals and at bedtime metronidazole 250 mg oral tablet take 1 tablet (250 mg) by oral route 4 times per day clobetasol-emollient 0.05 % topical foam 01/19/2016 APPLY BY EXTERNAL ROUTE ONCE DAILY SocialVolt IQ Meter miscellaneous kit 01/21/2016 test 2 x daily, Dx: E11.9, 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 Corduro DelI Love QC Lancets 33 gauge miscellaneous misc 01/21/2016 use as directed [employer]Volt miscellaneous strip 01/21/2016 07/19/2016 Test 2x daily, Dx: E11.9 TEST STRIPS cetirizine 10 mg oral tablet 01/26/2016 TAKE 1 TABLET BY MOUTH EVERY DAY nortriptyline 10 mg oral capsule 01/28/2016 TAKE 1 CAPSULE BY ORAL ROUTE ONCE A DAY (AT BEDTIME) FOR 30 DAYS omeprazole 20 mg oral capsule,delayed release(DR/EC) 03/19/2016 TAKE 1 CAPSULE (20 MG) BY ORAL ROUTE ONCE DAILY BEFORE A MEAL FOR 30 DAYS Elocon 0.1 % topical cream 04/02/2016 09/29/2016 apply a thin layer to the affected area(s) by topical route once daily for 90 days Lasix 20 mg oral tablet 04/12/2016 TAKE 1 TABLET (20 MG) BY ORAL ROUTE ONCE DAILY FOR 1-3 DAYS AT A TIME THEN REASSESS SWELLING, USE PRN potassium chloride 10 mEq oral capsule, extended release 04/12/2016 TAKE 1 CAPSULE (10 MEQ) BY ORAL ROUTE ONLY WHEN TAKING LASIX. metformin oral cyclobenzaprine 10 mg oral tablet 04/26/2016 take 1 tablet by oral route once a day (at bedtime) cetirizine 10 mg oral tablet 04/26/2016 TAKE 1 TABLET BY MOUTH EVERY DAY Savella 50 mg oral tablet 06/04/2016 12/01/2016 take 1 tablet (50 mg) by oral route 2 times per day for 30 days Myrbetriq 25 mg oral tablet extended release 24 hr 06/08/2016 09/06/2016 take 1 tablet (25 mg) by oral route once daily swallowing whole with water. Do not crush, chew and/or divide. for 30 days Zyrtec-D 5-120 mg oral tablet extended release 12 hr 06/18/2016 take 1 tablet by oral route every 12 hours montelukast 10 mg oral tablet 07/01/2016 12/28/2016 TAKE 1 TABLET BY MOUTH EVERY EVENING for 30 days omeprazole 20 mg oral capsule,delayed release(DR/EC) 07/05/2016 TAKE 1 CAPSULE (20 MG) BY ORAL ROUTE ONCE DAILY BEFORE A MEAL FOR 30 DAYS metoprolol succinate 100 mg oral tablet extended release 24 hr 07/05/2016 TAKE 1 TABLET BY MOUTH EVERY DAY hydrocodone-acetaminophen 10-325 mg oral tablet 07/05/2016 08/04/2016 take 1 tablet by oral route every 6 hours for 30 days hydrocortisone-acetic acid 1-2 % otic drops 07/07/2016 07/17/2016 instill 2 drops into right ear by otic route 3 times per day. Ok for similiar substitution or individual components. Name Start Date Expiration Date SIG Comments [...] apply 1 applicatorful by vaginal route 3XW metoprolol succinate 100 mg oral tablet extended release 24 hr 02/26/201407/26 1 TABLET BY ORAL ROUTE 1 TIME PER DAY for 30 days Lipitor 40 mg oral tablet 2014 07/02/2014 [...] 08/27/2014 use as directed for 99 days [place] 5-325 mg oral tablet 06/17/2014 06/27/2014 take [...] days baclofen 10 mg oral tablet 10/18/2014 02/15/201505/31 TABLET BY ORAL ROUTE 3 TIMES PER DAY PRN MUSCLE SPASM ondansetron 4 mg oral tablet,disintegrating 12/04/2014 01/03/2015 dissolve 1 tablet by oral route 2 times a day as needed for 30 days mtbjoxtx-qkmokxbfz-RP 3.5-10,000-1 mg/mL-unit/mL-% otic drops,suspension 201401/08/2015 instill 4 drops into affected ear(s) by otic route 3 times per day for 7 days rx completed Ambien CR 12.5 mg oral tablet,ext release multiphase 02/25/2015 03/27/2015 take 1 tablet (12.5 mg) by oral route once daily at bedtime for 30 days Lasix 20 mg oral tablet 03/21/2015 06/19/2015 [...] by inhalation route every 6 hours PRN nortriptyline 10 mg oral capsule 09/16/2015 12/15/2015 take 1 capsule by oral route once a day (at bedtime) for 30 days azithromycin 250 mg oral tablet 11/03/2015 11/08/2015 [...] daily before a meal for 30 days Estrace 0.01 % (0.1 mg/gram) vaginal [...] and remove at bedtime for 14 days azithromycin 250 mg oral tablet 06/07/2016 06/12/2016 take 2 tablets (500 mg) by oral route once daily for 1 day then 1 tablet (250 mg) by oral route once daily for 4 days Discontinued Name Start Date Discontinued Date [...] (15 mg) by oral route once daily Dr. Patterson Pyridium 200 mg oral tablet 03/18/2010 take 1 tablet (200 mg) by oral route [address] Jin Bactrim DS Oral 160-800 mg Oral Tablet 11/06/2009 11/17/2009 Dr. Hammond Tylenol-Codeine #3 300-30 mg oral tablet 12/10/2009 [...] once daily at bedtime for 30 days Please do not fill unless patient brings back her old script of Restoril. cetirizine 10 mg oral tablet 07/28/2012 11/27/2012 [...] tablet by mouth q6 hours for nausea Lunesta 2 mg oral tablet 06/15/2012 05/18/2013 [...] once daily as needed for 30 days Celebrex 200 mg oral capsule 05/18/2013 05/31/2013 [...] daily into the thigh or abdominal wall Sudafed 12 Hour 120 mg oral tablet extended release 07/15/2015 07/30/2015 take 1 tablet (120 mg) by oral route every 12 hours Vimovo 500-20 mg oral tablet,IR,delayed rel,biphasic 09/01/2015 01/16/2016 take 1 tablet by oral route 2 times per day 30 minutes before meals for 30 days clobetasol-emollient 0.05 % topical foam 02/09/2016 04/02/2016 APPLY BY EXTERNAL ROUTE ONCE DAILY clobetasol-emollient 0.05 % topical foam 02/09/2016 04/02/2016 APPLY BY EXTERNAL ROUTE ONCE DAILY Pt. reports this is not working. Problem List Description Status Onset Anemia Active [...] HC BMI BSA BMI Percentile O2 Sat(%) 07/06/2016 10:45:00 AM 118 mmHg 76 mmHg 88 bpm 16 rpm 98.8 F 157.125 lbs 63 in 27.83 kg/m2 1.78 m2 97 % 06/18/2016 8:47:00 AM 124 mmHg 70 mmHg 93 bpm 18 rpm 97.2 F 154 lbs 63 in 27.2796 kg/m 1.7621 m 98 % 06/07/2016 10:37:00 AM 86 bpm 16 rpm 98 F 154 lbs 63 in 27.28 kg/ m2 1.76 m2 97 % 06/04/2016 11:01:00 AM 120 mmHg 74 mmHg 87 bpm 16 rpm 98.6 F 154.5 lbs 63 in 27.3682 kg/m 1.765 m 98 % 05/13/2016 3:09:00 PM 104 mmHg 68 mmHg 92 bpm 16 rpm 98 F 153 lbs 63 in 27.10 kg/m2 1.76 m2 94 % 05/03/2016 3:38:00 PM 120 mmHg 80 mmHg 99 bpm 16 rpm 99.4 F 152.25 lbs 63 in 26.9696 kg/m 1.7521 m 97 % 04/26/2016 10:23:00 AM 132 mmHg 76 mmHg 101 bpm 18 rpm 97.6 F 154.125 lbs 63 in 27.30 kg/m2 1.76 m2 98 % 04/14/2016 1:35:00 PM 128 mmHg 68 mmHg 76 bpm 18 rpm 98.3 F 156 lbs 63 in 27.6339 kg/m 1.7735 m 98 % 04/13/2016 9:40:00 AM 114 mmHg 68 mmHg 78 bpm 18 rpm 97.6 F 156.8 lbs 63 in 27.78 kg/m2 1.78 m2 94 % 04/02/2016 11:09:00 AM 121 mmHg 68 mmHg 63 bpm 97.8 F 150 lbs 63 in 26.571 kg/m 1.7391 m 04/02/2016 10:05:00 AM 110 mmHg 70 mmHg 80 bpm 16 rpm 99.3 F 150.375 lbs 63 in 26.64 kg/m2 1.74 m2 100 % 03/26/2016 5:23:00 PM 134 mmHg 72 mmHg 99 bpm 18 rpm 97.2 F 94 % 03/17/2016 10:46:00 AM 118 mmHg 80 mmHg 79 bpm 16 rpm 98.9 F 152.5 lbs 63 in 27.01 kg/m2 1.75 m2 96 % 03/05/2016 10:47:00 AM 91 bpm 18 rpm 99.1 F 152.2 lbs 63 in 26.9607 kg/m 1.7518 m 97 % 02/16/2016 2:34:00 PM 108 mmHg 64 mmHg 93 bpm 16 rpm 100.8 F 155.5 lbs 63 in 27.55 kg/m2 1.77 m2 95 % 02/14/2016 11:32:00 AM 79 bpm 18 rpm 98.2 F 152 lbs 63 in 26.9253 kg/m 1.7506 m 97 % 01/16/2016 10:53:00 AM 120 mmHg 80 mmHg 80 bpm 18 rpm 99 F 151.5 lbs 63 in 26.84 kg/m2 1.75 m2 98 % 12/16/2015 11:41:00 AM 130 mmHg 80 mmHg 101 bpm 18 rpm 98 F 150.25 lbs 63 in 26.6153 kg/m 1.7405 m 97 % 11/24/2015 11:26:00 AM 124 mmHg 66 mmHg 86 bpm 18 rpm 97.8 F 155 lbs 63 in 27.46 kg/m2 1.77 m2 97 % 11/18/2015 1:37:00 PM 122 mmHg 74 mmHg 86 bpm 16 rpm 98.3 F 156.375 lbs 63 in 27.7003 kg/m 1.7756 m 97 % 11/03/2015 9:27:00 AM 118 mmHg 80 mmHg 88 bpm 18 rpm 98.2 F 98 % 10/20/2015 2:08:00 PM 128 mmHg 72 mmHg 81 bpm 18 rpm 97.4 F 156.187 lbs 63 in 27.6671 kg/m 1.7746 m 98 % 09/23/2015 2:36:00 PM 110 mmHg 70 mmHg 82 bpm 18 rpm 97.4 F 156 lbs 63 in 27.63 kg/m2 1.77 m2 99 % 09/16/2015 10:49:00 AM 128 mmHg 74 mmHg 74 bpm 18 rpm 96.6 F 156 lbs 63 in 27.6339 kg/m 1.7735 m 95 % 09/02/2015 2:12:00 PM 118 mmHg 64 mmHg 83 bpm 18 rpm 96.1 F 160 lbs 63 in 28.34 kg/m2 1.80 m2 96 % 09/01/2015 10:50:00 AM 108 mmHg 72 mmHg 96 bpm 19 rpm 97.4 F 160 lbs 63 in 28.3424 kg/m 1.7961 m 98 % 07/30/2015 2:32:00 PM 126 mmHg 72 mmHg 80 bpm 98.7 F 163.25 lbs 63 in 28.92 kg/m2 1.81 m2 97 % 07/15/2015 8:58:00 AM 126 mmHg 68 mmHg 100 bpm 18 rpm 96.9 F 160 lbs 63 in 28.3424 kg/m 1.7961 m 97 % 07/04/2015 11:09:00 AM 120 mmHg 84 mmHg 87 bpm 98.5 F 164.375 lbs 63 in 29.12 kg/m2 1.82 m2 97 % 06/06/2015 10:02:00 AM 110 mmHg 70 mmHg 86 bpm 97.9 F 163 lbs 63 in 28.8739 kg/m 1.8129 m 98 % 06/06/2015 9:12:00 AM 132 mmHg [...] bpm 98.2 F 157.125 lbs 63 in 27.83 kg/m2 1.78 m2 98 % 09/25/2014 2:42:00 PM 110 mmHg 78 mmHg 102 bpm 98.7 F 158.5 lbs 63 in 28.0767 kg/m 1.7877 m 95 % 09/17/2014 11:09:00 AM 122 mmHg 66 mmHg 100 bpm 18 rpm 97.8 F 156.125 lbs 63 in 27.66 kg/m2 1.77 m2 98 % 09/04/2014 2:06:00 PM 120 mmHg 70 mmHg 105 bpm 97.4 F 157.5 lbs 63 in 27.8996 kg/m 1.782 m 96 % 08/28/2014 3:02:00 PM 128 mmHg 66 mmHg 104 bpm 18 rpm 98.1 F 158.125 lbs 63 in 28.01 kg/m2 1.79 m2 98 % 08/01/2014 3:24:00 PM 132 mmHg 66 mmHg 86 bpm 18 rpm 98.7 F 161 lbs 63 in 28.5196 kg/m 1.8017 m 98 % 07/29/2014 3:37:00 PM 126 mmHg 78 mmHg 90 bpm 97.8 F 165.25 lbs 63 in 29.27 kg/m2 1.83 m2 93 % 07/25/2014 2:03:00 PM 108 mmHg 76 mmHg 99 bpm 99 F 163.375 lbs 63 in 28.9403 kg/m 1.8149 m 95 % 07/17/2014 10:02:00 AM 132 mmHg 66 mmHg 100 bpm 18 rpm 97.9 F 167.125 lbs 63 in 29.60 kg/m2 1.84 m2 100 % 07/11/2014 4:07:00 PM 135 mmHg 85 mmHg 124 bpm 18 rpm 98.3 F 164.375 lbs 63 in 29.1174 kg/m 1.8205 m 100 % 07/01/2014 3:45:00 PM 126 mmHg 70 mmHg 91 bpm 97.6 F 167.125 lbs 63 in 29.60 kg/m2 1.84 m2 98 % 06/25/2014 11:04:00 AM 120 mmHg 70 mmHg 100 bpm 20 rpm 97 F 157.125 lbs 63 in 27.8332 kg/m 1.7799 m 97 % 06/12/2014 10:49:00 AM 110 mmHg 80 mmHg 120 bpm 20 rpm 97.6 F 160.25 lbs 63 in 28.39 kg/m2 1.80 m2 99 % 06/06/2014 10:57:00 AM 100 mmHg 68 mmHg 112 bpm 18 rpm 97.6 F 156 lbs 63 in 27.6339 kg/m 1.7735 m 98 % 05/27/2014 2:18:00 PM 118 mmHg 72 mmHg 107 bpm 20 rpm 97 F 157 lbs 63 in 27.81 kg/m2 1.78 m2 100 % 04/20/2014 9:42:00 AM 132 mmHg 72 mmHg 114 bpm 18 rpm 97.4 F 165 lbs 63 in 29.2281 kg/m 1.8239 m 97 % 03/29/2014 5:23:00 PM 122 mmHg 72 mmHg 74 bpm 20 rpm 97.8 F 158 lbs 63 in 27.99 kg/m2 1.78 m2 03/15/2014 10:29:00 AM 116 mmHg 60 mmHg 120 bpm 18 rpm 98 F 156 lbs 63 in 27.6339 kg/m 1.7735 m 2014 3:17:00 PM 102 mmHg 60 mmHg 95 bpm 18 rpm 96.8 F 158 lbs 63 in 27.99 kg/m2 1.78 m2 95 % 02/13/2014 1:48:00 PM 106 mmHg 66 mmHg 86 bpm 97.4 F 159 lbs 63 in 28.1653 kg/m 1.7905 m 02/07/2014 3:06:00 PM 118 mmHg 68 mmHg 107 bpm 18 rpm 96.5 F 157 lbs 63 in 27.81 kg/m2 1.78 m2 93 % 02/03/2014 2:15:00 PM 92 mmHg 58 mmHg 104 bpm 18 rpm 97.3 F 153.187 lbs 64 in 26.2943 kg/m 1.7713 m 93 % 01/30/2014 1:56:00 PM 124 mmHg 62 mmHg 90 bpm 18 rpm 97.8 F 157.25 lbs 63 in 27.86 kg/m2 1.78 m2 95 % 01/24/2014 5:04:00 PM 94 mmHg 62 mmHg 86 bpm 18 rpm 98.2 F 164.125 lbs 63 in 29.0731 kg/m 1.8191 m 93 % 01/16/2014 2:27:00 PM 126 mmHg 74 mmHg 100 bpm 18 rpm 161 lbs 64 in 27.64 kg/m2 1.82 m2 99 % 01/08/2014 2:23:00 PM 132 mmHg 66 mmHg 102 bpm 18 rpm 97.8 F 157 lbs 64 in 26.9487 kg/m 1.7932 m 98 % 12/05/2013 9:42:00 AM 134 mmHg 66 mmHg 97 bpm 18 rpm 97.6 F 161.25 lbs 64 in 27.68 kg/m2 1.82 m2 99 % 11/21/2013 3:06:00 PM 126 mmHg 66 mmHg 112 bpm 18 rpm 98.1 F 167 lbs 64 in 28.6652 kg/m 1.8495 m 98 % 10/23/2013 2:20:00 PM 117 mmHg 65 mmHg 99 bpm 20 rpm 97.8 F 176 lbs 64 in 30.21 kg/m2 1.90 m2 96 % 10/12/2013 9:34:00 AM 122 mmHg 66 mmHg 111 bpm 18 rpm 97.7 F 177.125 lbs 94 % 10/02/2013 4:04:00 PM 130 mmHg 80 mmHg 105 bpm 18 rpm 98.1 F 177 lbs 64 in 30.38 kg/m2 1.90 m2 97 % 09/14/2013 10:08:00 AM 123 mmHg [...] rpm 98.8 F 196.375 lbs 64 in 33.71 kg/m2 2.01 m2 06/20/2012 3:53:00 PM 140 mmHg 90 mmHg 103 bpm 20 rpm 97.7 F 197 lbs 64 in 33.8146 kg/m 2.0087 m 97 % 06/06/2012 1:30:00 PM 134 mmHg 92 mmHg 102 bpm 18 rpm 97.2 F 194 lbs 64 in 33.30 kg/m2 1.99 m2 05/03/2012 10:51:00 AM 136 mmHg 72 mmHg 68 bpm 18 rpm 98.7 F 190.25 lbs 04/28/2012 2:04:00 PM 124 mmHg 68 mmHg 96 bpm 20 rpm 96.4 F 188.4 lbs 64 in 32.34 kg/m2 1.96 m2 04/11/2012 2:18:00 PM 110 mmHg 78 mmHg 101 bpm 18 rpm 98.8 F 190 lbs 64 in 32.6131 kg/m 1.9727 m 98 % 03/30/2012 1:36:00 PM 128 mmHg 68 mmHg 68 bpm 18 rpm 97.9 F 184.125 lbs 64 in 31.60 kg/m2 1.94 m2 03/15/2012 2:28:00 PM 124 mmHg 64 mmHg 64 bpm 18 rpm 97 F 182 lbs 64 in 31.2399 kg/m 1.9307 m 03/15/2012 12:54:00 PM 146 mmHg 82 mmHg 82 bpm 16 rpm 95.6 F 182.5 lbs 64 in 31.33 kg/m2 1.93 m2 02/09/2012 10:56:00 AM 132 mmHg 70 mmHg 68 bpm 18 rpm 97.8 F 181.125 lbs 64 in 31.0897 kg/m 1.9261 m 12/23/2011 2:48:00 PM 128 mmHg 66 mmHg 68 bpm 18 rpm 98.2 F 174.375 lbs 64 in 29.93 kg/m2 1.89 m2 11/02/2011 2:48:00 PM 132 mmHg 68 mmHg 84 bpm 18 rpm 98.4 F 172 lbs 64 in 29.5234 kg/m 1.877 m 94 % 10/14/2011 10:34:00 AM 126 mmHg 66 mmHg 66 bpm 18 rpm 96.6 F 171.125 lbs 64 in 29.37 kg/m2 1.87 m2 09/27/2011 3:14:00 PM 136 mmHg 64 mmHg 68 bpm 18 rpm 97.1 F 166.5 lbs 64 in 28.5794 kg/m 1.8467 m 08/18/2011 10:40:00 AM 126 mmHg 72 mmHg 68 bpm 18 rpm 98.6 F 160.5 lbs 64 in 27.55 kg/m2 1.81 m2 08/02/2011 2:47:00 PM 120 mmHg 68 mmHg 68 bpm 18 rpm 96.8 F 160.375 lbs 64 in 27.528 kg/m 1.8124 m 07/08/2011 1:36:00 PM 136 mmHg 74 mmHg 68 bpm 18 rpm 97.7 F 161.125 lbs 64 in 27.66 kg/m2 1.82 m2 07/05/2011 1:57:00 PM 128 mmHg 90 mmHg 84 bpm 16 rpm 96.6 F 160 lbs 64 in 27.4637 kg/m 1.8103 m 06/15/2011 1:48:00 PM 138 mmHg 70 mmHg 68 bpm 18 rpm 97.4 F 160.5 lbs 64 in 27.55 kg/m2 1.81 m2 05/14/2011 10:30:00 AM 118 mmHg 68 mmHg 72 bpm 18 rpm 96.6 F 159.375 lbs 64 in 27.3564 kg/m 1.8068 m 05/11/2011 12:46:00 PM 108 mmHg 80 mmHg 62 bpm 16 rpm 97.8 F 155 lbs 64 in 26.61 kg/m2 1.78 m2 04/28/2011 9:16:00 AM 118 mmHg 68 mmHg 68 bpm 18 rpm 96.5 F 159.5 lbs 64 in 27.3778 kg/m 1.8075 m 03/02/2011 2:57:00 PM 134 mmHg 78 mmHg 80 bpm 18 rpm 98.2 F 02/17/2011 9:47:00 AM 130 mmHg 72 mmHg 76 bpm 18 rpm 97.2 F 155 lbs 01/19/2011 10:48:00 AM 126 mmHg 80 mmHg 76 bpm 16 rpm 95.6 F 154.5 lbs 64 in 26.52 kg/m2 1.78 m2 12/16/2010 2:49:00 PM 110 mmHg 76 mmHg 78 bpm 16 rpm 96.9 F 12/02/2010 2:21:00 PM 122 mmHg 85 mmHg 96 bpm 98.4 F 157.312 lbs 64 in 27.00 kg/m2 1.80 m2 11/24/2010 10:10:00 AM 128 mmHg 70 mmHg [...] bpm 98.6 F 146.5 lbs 63.5 in 25.54 kg/m2 1.73 m2 11/17/2009 9:05:00 AM 124 mmHg 70 mmHg [...] Reviewed 02/13/2015 12:00 AM Tick Panel Reviewed 03/21/2015 12:00 AM RADEX SPINE CERVICAL [...] 12:00 AM Decadron 1 mg [facility]#[id number] (Jr) Reviewed 04/28/2011 12:00 AM Depo-Medrol 80 mg [facility]#[id number] Reviewed 09/02/2015 12:00 AM Toradol 60 Mg ND#[id number] Reviewed 09/02/2015 12:00 AM Phenergan, Up to 50 Mg [facility] Medicaid Reviewed 09/16/2015 12:00 AM Toradol 60 Mg [facility]#3163-3583-81 Reviewed 09/16/2015 12:00 AM Phenergan Up to 50 mg RHC Medicare Reviewed 05/11/2011 12:00 AM N BLOCK INJ OCCIPITAL Reviewed 05/11/2011 12:00 AM Kenalog [id number] ANNA Reviewed 11/13/2015 12:00 AM ASSAY OF TROPONIN QUANT Returned 11/13/2015 12:00 AM ASSAY THYROID STIM HORMONE Returned 11/13/2015 12:00 AM COMPLETE CBC W/AUTO DIFF WBC Returned 11/13/2015 12:00 AM METABOLIC PANEL TOTAL CA Returned 11/13/2015 12:00 AM ASSAY OF MAGNESIUM Returned 11/24/2015 12:00 AM COMPLETE CBC W/AUTO DIFF WBC Returned 11/24/2015 12:00 AM COMPREHEN METABOLIC PANEL Returned 11/24/2015 12:00 AM CHEST X-RAY 2VW FRONTAL&LATL Returned 06/15/2011 12:00 AM COMPLETE CBC W/AUTO DIFF WBC Reviewed 06/15/2011 12:00 AM COMPREHEN METABOLIC PANEL Reviewed 07/08/2011 12:00 AM THER/PROPH/DIAG INJ SC/IM Reviewed 07/08/2011 12:00 AM Toradol,15mg [facility]#[id number], [place] Reviewed 07/08/2011 12:00 AM Phenergan 50 Mg Im Formerly Named [facility] [id number] [place] Reviewed 01/21/2016 12:00 AM ECG MONIT/REPRT UP TO 48 HRS Returned 08/02/2011 12:00 AM THER/PROPH/DIAG INJ SC/IM Reviewed 08/02/2011 12:00 AM Decadron 1 mg ND#[id number] (Jr) Reviewed 08/02/2011 12:00 AM Depo-Medrol 80 mg ND#[id number] Reviewed 03/05/2016 12:00 AM COMPLETE CBC W/AUTO DIFF WBC Returned 03/05/2016 12:00 AM STREP A ASSAY W/OPTIC Returned 03/05/2016 12:00 AM C-REACTIVE PROTEIN Returned 03/18/2016 12:00 AM [facility] MEDIC[facility] - flu vaccine administration Reviewed 03/18/2016 [...] Reviewed 09/27/2011 12:00 AM Depo-Medrol 80 mg ND#[id number]-Gadlfctt Reviewed 07/06/2016 12:00 AM CHEST X-RAY 4/> VIEWS Returned 10/14/2011 12:00 AM X-RAY EXAM OF ABDOMEN Reviewed 10/14/2011 12:00 AM URINALYSIS AUTO W/O SCOPE Reviewed 12/23/2011 12:00 AM THER/PROPH/DIAG INJ SC/IM Reviewed 12/23/2011 12:00 AM Decadron 1 mg ND#[id number] (Jr) Reviewed 12/23/2011 12:00 AM Depo-Medrol 80 mg [facility]#[id number] Reviewed 02/09/2012 12:00 AM THER/PROPH/DIAG INJ SC/IM Reviewed 02/09/2012 12:00 AM Decadron 1 mg [facility]#[id number] (Jr) Reviewed 02/09/2012 12:00 AM Depo-Medrol 80 mg [facility]#[id number] Reviewed 03/15/2012 12:00 AM N BLOCK INJ OCCIPITAL Reviewed 03/15/2012 12:00 AM Kenalog [id number] ANNA Reviewed 04/11/2012 12:00 AM COMPLETE CBC W/AUTO DIFF WBC Reviewed 04/11/2012 12:00 AM COMPREHEN METABOLIC PANEL Reviewed 04/11/2012 12:00 AM LIPID PANEL Reviewed 04/11/2012 12:00 AM ASSAY THYROID STIM HORMONE Reviewed 06/20/2012 12:00 AM THER/PROPH/DIAG INJ SC/IM Reviewed 06/20/2012 12:00 AM Decadron, Per 1 Mg ND# [address]-92 Reviewed 06/20/2012 12:00 AM Depo-Medrol, Per 80 Mg ND#6242-1468-96 Reviewed 09/06/2012 12:00 AM N BLOCK INJ OCCIPITAL Reviewed 09/06/2012 12:00 AM Kenalog [id number] ANNA Reviewed 09/06/2012 12:00 AM X-RAY EXAM RIBS UNI 2 VIEWS Reviewed 09/26/2012 12:00 AM THER/PROPH/DIAG INJ SC/IM Reviewed 09/26/2012 12:00 AM Decadron, Per 1 Mg ND# [id number] Reviewed 09/26/2012 12:00 AM Depo-Medrol, Per 80 Mg ND#7796-2444-10 Reviewed 10/03/2012 12:00 AM URINALYSIS AUTO W/O SCOPE Reviewed 10/03/2012 12:00 AM THER/PROPH/DIAG INJ SC/IM Reviewed 10/03/2012 12:00 AM Toradol 60 Mg ND#[id number] Reviewed 10/03/2012 12:00 AM Phenergan, 25Mg ND#9675-3636-34 Reviewed 10/19/2012 12:00 AM N BLOCK INJ OCCIPITAL Reviewed 10/19/2012 12:00 AM Kenalog, Per 10 Mg ND#0492-2045-05 Reviewed 10/19/2012 12:00 AM Toradol 30 Mg ND#9151-0307-57 Reviewed 10/19/2012 12:00 AM THER/PROPH/DIAG INJ SC/IM Reviewed 10/31/2012 12:00 AM COMPLETE CBC W/AUTO DIFF WBC Reviewed 10/31/2012 12:00 AM COMPREHEN METABOLIC PANEL Reviewed 10/31/2012 12:00 AM LIPID PANEL Reviewed 11/03/2012 12:[address] THORAX W/O & W/DYE Reviewed 11/08/2012 12:00 AM N BLOCK INJ OCCIPITAL Reviewed 11/08/2012 12:00 AM Kenalog [id number] ANNA Reviewed 11/27/2012 12:00 AM COMPLETE CBC [...] with report, physician review and interpretation Reviewed 01/18/2013 12:00 AM IMMUNOTHERAPY INJECTIONS Reviewed 01/22/2013 12:00 AM Pelvic & Breast Exam - Medicare Reviewed 01/22/2013 12:00 AM Pap Specimen Handling - Medicare Reviewed 01/22/2013 12:00 AM HIV-1ANTIBODY Reviewed 01/25/2013 12:00 AM THER/PROPH/DIAG INJ SC/IM Reviewed 01/25/2013 12:00 AM Decadron, Per 1 Mg [facility]# [address]-54 Reviewed 01/25/2013 12:00 AM Depo-Medrol, Per 80 Mg [facility] [place]#7299-3401-80 Reviewed 01/26/2013 12:00 AM IMMUNOTHERAPY INJECTIONS Reviewed [...] Reviewed 04/25/2013 12:00 AM IMMUNOTHERAPY INJECTIONS Reviewed 05/16/2013 12:00 AM THER/PROPH/DIAG INJ SC/IM Reviewed 05/16/2013 12:00 AM Decadron, Per 1 Mg [facility] [place]# [address]-70 Reviewed 05/16/2013 12:00 AM Depo-Medrol, Per 80 Mg [facility] [place]#3813-4382-07 Reviewed 05/31/2013 12:00 AM IMMUNOTHERAPY INJECTIONS Reviewed 06/08/2013 12:00 AM IMMUNOTHERAPY INJECTIONS Reviewed 06/14/2013 12:00 AM IMMUNOTHERAPY INJECTIONS Reviewed 06/28/2013 12:00 AM IMMUNOTHERAPY INJECTIONS Reviewed 07/12/2013 12:00 AM X-RAY EXAM RIBS UNI 2 VIEWS Reviewed 07/18/2013 12:00 AM Toradol 60 Mg [facility] [place]#9112-1602-91 Reviewed 07/18/2013 12:00 AM THER/PROPH/DIAG INJ SC/IM Reviewed 08/23/2013 12:00 AM COMPLETE CBC W/AUTO DIFF WBC Reviewed 08/23/2013 12:00 AM COMPREHEN METABOLIC PANEL Reviewed 08/23/2013 12:00 AM LIPID PANEL Reviewed 08/31/2013 12:00 AM X-RAY EXAM OF LOWER LEG Reviewed 09/04/2013 12:00 AM IMMUNOTHERAPY INJECTIONS Reviewed 09/14/2013 12:00 AM THER/PROPH/DIAG INJ SC/IM Reviewed 09/14/2013 12:00 AM Decadron, Per 1 Mg [facility] [place]# [address]-46 Reviewed 09/14/2013 12:00 AM Depo-Medrol, Per 80 Mg [facility] [place]#4506-2779-48 Reviewed 09/20/2013 12:00 AM IMMUNOTHERAPY INJECTIONS Reviewed [...] INJ OCCIPITAL Reviewed 12/10/2009 12:00 AM Kenalog Do-[id number] ANNA Reviewed 12/16/2009 12:00 AM HIV-1ANTIBODY Reviewed 12/16/2009 12:00 AM COMPLETE CBC W/AUTO DIFF WBC Reviewed 12/16/2009 12:00 AM METABOLIC PANEL TOTAL CA Reviewed 12/16/2009 12:00 AM Type and screen Reviewed 12/16/2009 12:00 AM PROTHROMBIN TIME Reviewed 12/16/2009 12:00 AM THROMBOPLASTIN TIME PARTIAL Reviewed 03/18/2010 12:00 AM DRAIN/INJ JOINT/BURSA W/O US Reviewed 03/18/2010 12:00 AM Kenalog [id number] ANNA Reviewed 11/21/2013 12:00 AM RADEX HAND MINIMUM 3 VIEWS Reviewed 06/03/2010 12:00 AM INJ TRIGGER POINT 1/2 MUSCL Reviewed 06/03/2010 12:00 AM Kenalog per 10Mg -Formerly Named [facility]#[id number](Niall) Reviewed 12/05/2013 12:00 AM COMPLETE CBC W/AUTO [...] Reviewed 07/23/2010 12:00 AM Kenalog per 10Mg Im-Formerly Named [facility]#[id number](Niall) Reviewed 2014 12:00 AM COMPLETE CBC W/AUTO [...] INJ OCCIPITAL Reviewed 10/01/2010 12:00 AM Kenalog [id number] ANNA Reviewed 07/25/2014 12:00 AM THER/PROPH/DIAG INJ [...] 12:00 AM ENT Consult Reviewed Results Summary Data and Description Results 11/11/2009 2:49 PM COLOR [...] 0.46 #BASO 0.03 MANUAL DIFF NOT IND 12/24/2009 5:30 AM WBC 13.4 RBC 3.01 HGB 9.30 g/dLHCT 29.10 %MCV 97.0 fLMCH 30.90 pgMCHC 32.0 g/dLRDW SD 46 RDW CV 12.90 %MPV 11.30 fLPLT 222 NRBC# 0.00 NRBC% 0.0 %NEUT 71.30 %%LYMP 19.70 %%MONO 6.20 %%EOS 2.70 %%BASO 0.10 %#NEUT 9.51 #LYMP 2.63 #MONO 0.83 #EOS 0.36 #BASO 0.02 MANUAL DIFF NOT IND 08/26/2010 10:35 AM [...] 115 eGFR >60 mL/min/1.73 m2eGFR AA* >60 06/16/2011 12:02 PM TRIGLYCERIDES 421.0 mg/dLCHOLESTEROL 352.0 mg/dLHDL 27.0 mg /dLTOT CHOL/HDL 13.0 LDL (CALC) INVALID MG/DL TRIG 07/05/2011 3:55 PM URIC ACID 3.2 mg/dLMAGNESIUM 2.30 mg/dLFREE T4 0.86 TSH 0.430 uIU/mLVITAMIN B12 252.0 pg/mL 04/24/2012 11:10 AM WBC 10.6 RBC 4.50 [...] 4.68 HGB 14.30 g/dLHCT 41.30 %MCV 88.0 [facility] pgHC 34.60 g/dLRDW SD 44 RDW CV 13.70 [...] 75 LYMPHS 20 MONOS 3 EOS 2.0 %WBC 14.1 RBC 4.37 HGB 13.20 g/dLHCT 38.70 %MCV 89.0 fLMCH 30.20 pgMCHC 34.10 g/dLRDW SD 44 RDW CV 13.60 %MPV 11.50 fLPLT 355 NRBC# 0.00 NRBC% 0.0 %NEUT 71.20 %%LYMP 21.0 %%MONO 4.80 %%EOS 2.80 %%BASO 0.20 %# NEUT 10.03 #LYMP 2.95 #MONO 0.68 #EOS 0.39 #BASO 0.03 MANUAL DIFF PENDING GLUCOSE 105.0 mg/dLSODIUM 134.0 mmol/LPOTASSIUM 5.90 mmol/LCHLORIDE 98.0 mmol/ LCO2 23.0 mmol/LBUN 12.0 mg/dLCREATININE 0.80 mg/dLSGOT/AST 20.0 IU/LSGPT/ALT 37.0 IU/LALK PHOS 123.0 IU/LTOTAL PROTEIN 8.10 g/dLALBUMIN 4.90 g/dLTOTAL BILI 0.30 mg/dLCALCIUM 10.80 mg/dLAGE 38 GFR NonAA 81 GFR AA 98 eGFR 60 eGFR AA* 60 TRIGLYCERIDES 905.0 mg/dLCHOLESTEROL 286.0 mg/dLHDL 27.0 mg/dLTOT CHOL/HDL 10.6 LDL (CALC) INVALID MG/DLGLUCOSE 105.0 mg/dLSODIUM 134.0 mmol/LPOTASSIUM 5.90 mmol/LCHLORIDE 98.0 mmol/LCO2 23.0 mmol/LBUN 12.0 mg/dLCREATININE 0.80 mg/ dLCALCIUM 10.80 mg/dLAGE 38 GFR NonAA 81 GFR [...] AA 114 eGFR 60 eGFR AA* 60 03/18/2014 2:46 PM VITAMIN D 38.60 ng/mL 06/06/2014 12:10 PM INFLUENZA A & B [...] C DIFFICILE NAAT NEGATIVE 09/25/2014 3:38 PM WBC 19.7 RBC 4.70 HGB 14.50 g/dLHCT 42.20 %MCV 90.0 fLMCH 30.90 pgMCHC 34.40 g/dLRDW SD 43 RDW CV 13.0 %MPV 11.50 fLPLT 392 NRBC# 0.00 NRBC% 0.0 LIPASE 46.0 U/LGLUCOSE 116.0 mg/dLSODIUM 134.0 mmol/LPOTASSIUM 4.60 mmol/LCHLORIDE 98.0 mmol/LCO2 26.0 mmol/LBUN 10.0 mg/dLCREATININE 0.80 mg/dLSGOT /AST 49.0 IU/LSGPT/ALT 74.0 IU/LALK PHOS 95.0 IU/LTOTAL PROTEIN 8.50 g/ dLALBUMIN 4.0 g/dLTOTAL BILI 0.30 mg/dLCALCIUM 10.70 mg/dLAGE 39 GFR NonAA 80 GFR AA 97 [...] Quant,IgM <0.80 RMSF , IgG, EIA Negative [facility] Spotted Fever,IgM 0.51 E. chaffeensis (HME) IgGTiter Negative titerE. chaffeensis (HME) IgMTiter Negative 02/20/2015 8:20 AM WBC 26.1 RBC 4.66 HGB 13.80 g/dLHCT 41.70 %MCV 90.0 fLMCH 29.60 pgMCHC 33.10 g/dLRDW SD 48 RDW CV 14.70 %MPV 11.30 fLPLT 414 NRBC# 0.00 NRBC% 0.0 GLUCOSE 121.0 mg/dLSODIUM 134.0 mmol/LPOTASSIUM 3.90 mmol/LCHLORIDE 98.0 mmol/LCO2 27.0 mmol/LBUN 9.0 mg/dLCREATININE 0.70 mg/dLSGOT/AST 20.0 IU/ LSGPT/ALT 41.0 IU/LALK PHOS 111.0 IU/LTOTAL PROTEIN 7.20 g/dLALBUMIN 4.10 g/ dLTOTAL BILI 0.20 mg/dLCALCIUM 9.80 mg/dLAGE 39 GFR NonAA 94 GFR AA 114 eGFR > 60 mL/min/1.73meGFR AA* >60 TRIGLYCERIDES 773.0 mg/dLCHOLESTEROL 303.0 mg/ dLHDL 36.0 mg/dLTOT CHOL/HDL 8.4 LDL 188.0 mg/dLTSH 0.660 uIU/mLVITAMIN D 45.50 ng/mL 04/29/2015 3:38 PM INFLUENZA A & B NO INFLUENZA A OR B DETECTED 05/20/2015 1:55 PM WBC 16.4 RBC 4.60 HGB 13.90 g/dLHCT 41.70 %MCV 91.0 fLMCH 30.20 pgHC 33.30 g/dLRDW SD 45 RDW CV 13.70 [...] <1.0 05/21/2015 12:35 PM D-DIMER QUANT <0.19 06/11/2015 2:48 PM GLUCOSE 129.0 mg/dLSODIUM 136.0 mmol/LPOTASSIUM 4.40 mmol/ LCHLORIDE 103.0 mmol/LCO2 24.0 mmol/LBUN 11.0 mg/dLCREATININE 0.80 mg/dLSGOT/ AST 32.0 IU/LSGPT/ALT 39.0 IU/LALK PHOS 120.0 IU/LTOTAL PROTEIN 7.50 g/ dLALBUMIN 4.80 g/dLTOTAL BILI 0.30 mg/dLCALCIUM 10.50 mg/dLAGE 40 GFR NonAA 80 GFR AA 97 eGFR >60 mL/min/1.73meGFR AA* >60 PTH, Intact 11 07/17/2015 11:30 AM INFLUENZA A & B NO INFLUENZA A OR B DETECTED 07/18/2015 11:32 AM WBC 18.1 RBC 4.28 HGB 13.20 g/dLHCT 39.50 %MCV 92.0 fLMCH 30.80 pgMCHC 33.40 g/dLRDW SD 47 RDW CV 14.0 %MPV 12.20 fLPLT 410 NRBC# 0.00 NRBC% 0.0 GLUCOSE 89.0 mg/dLSODIUM 138.0 mmol/LPOTASSIUM 4.20 mmol/LCHLORIDE 103.0 mmol/LCO2 25.0 mmol/LBUN 13.0 mg/dLCREATININE 0.80 mg/dLSGOT/AST 28.0 IU/ LSGPT/ALT 31.0 IU/LALK PHOS 157.0 IU/LTOTAL PROTEIN 7.30 g/dLALBUMIN 4.70 g/ dLTOTAL BILI 0.30 mg/dLCALCIUM 10.30 mg/dLAGE 40 GFR NonAA 80 GFR AA 97 eGFR > 60 mL/min/1.73meGFR AA* >60 VITAMIN D 60.90 ng/mLPTH, Intact 9 08/08/2015 10:12 AM GLUCOSE 130.0 mg/dLSODIUM 138.0 mmol/LPOTASSIUM 4.70 mmol/ LCHLORIDE 104.0 mmol/LCO2 24.0 mmol/LBUN 12.0 mg/dLCREATININE 0.80 mg/dLSGOT/ AST 27.0 IU/LSGPT/ALT 32.0 IU/LALK PHOS 159.0 IU/LTOTAL PROTEIN 7.20 g/ dLALBUMIN 4.60 g/dLTOTAL BILI 0.30 mg/dLCALCIUM 10.10 mg/dLAGE 40 GFR NonAA 80 GFR AA 97 eGFR >60 mL/min/1.73meGFR AA* >60 PROTIME 10.90 secsINR 1.0 WBC 12.8 RBC 4.53 HGB 14.0 g/dLHCT 42.30 %MCV 93.0 fLMCH 30.90 pgMCHC 33.10 g/dLRDW SD 47 RDW CV 13.80 %MPV 11.90 fLPLT 384 NRBC# 0.00 NRBC% 0.0 %NEUT 61.0 %%LYMP 29.60 %%MONO 5.60 %%EOS 3.40 %%BASO 0.40 %#NEUT 7.83 #LYMP 3.79 #MONO 0.72 #EOS 0.43 #BASO 0.05 MANUAL DIFF NOT IND AFP, Serum, Tumor Marker 2.40 ng/mL 08/15/2015 12:02 PM WBC 12.9 RBC 4.35 HGB 13.70 g/dLHCT 40.40 %MCV 93.0 fLMCH 31.50 pgMCHC 33.90 g/dLRDW SD 45 RDW CV 13.20 %MPV 11.50 fLPLT 371 NRBC# 0.00 NRBC% 0.0 %NEUT 61.50 %%LYMP 30.20 %%MONO 4.70 %%EOS 2.60 %%BASO 0.60 %#NEUT 7.91 #LYMP 3.89 #MONO 0.61 #EOS 0.34 #BASO 0.08 MANUAL DIFF NOT IND GLUCOSE 181.0 mg/dLSODIUM 136.0 mmol/LPOTASSIUM 4.10 mmol/LCHLORIDE 101.0 mmol/LCO2 23.0 mmol/LBUN 11.0 mg/dLCREATININE 0.80 mg/dLSGOT/AST 38.0 IU/LSGPT/ALT 42.0 IU /LALK PHOS 172.0 IU/LTOTAL PROTEIN 7.40 g/dLALBUMIN 4.70 g/dLTOTAL BILI 0.30 mg/ dLCALCIUM 10.20 mg/dLAGE 40 GFR NonAA 80 GFR AA 97 eGFR >60 mL/min/1.73meGFR AA* >60 PTH, Intact 13 08/26/2015 10:08 AM MICROALBUMIN UR 6.0 ug/mLTRIGLYCERIDES 709.0 mg/ dLCHOLESTEROL 264.0 mg/dLHDL 15.0 mg/dLTOT CHOL/HDL 17.6 LDL 167.0 mg/dL 09/30/2015 2:40 PM GLUCOSE 129.0 mg/dLSODIUM 140.0 mmol/LPOTASSIUM 3.70 mmol/ LCHLORIDE 103.0 mmol/LCO2 26.0 mmol/LBUN 11.0 mg/dLCREATININE 0.80 mg/dLSGOT/ AST 30.0 IU/LSGPT/ALT 43.0 IU/LALK PHOS 149.0 IU/LTOTAL PROTEIN 7.40 g/ dLALBUMIN 4.50 g/dLTOTAL BILI 0.30 mg/dLCALCIUM 9.90 mg/dLAGE 40 GFR NonAA 80 GFR AA 97 eGFR >60 mL/min/1.73meGFR AA* >60 VITAMIN D 46.50 ng/mLGLUCOSE 129.0 mg/dLSODIUM 140.0 mmol/LPOTASSIUM 3.70 mmol/LCHLORIDE 103.0 mmol/LCO2 26.0 mmol/LBUN 11.0 mg/dLCREATININE 0.80 mg/dLSGOT/AST 30.0 IU/LSGPT/ALT 43.0 IU /LALK PHOS 149.0 IU/LTOTAL PROTEIN 7.40 g/dLALBUMIN 4.50 g/dLTOTAL BILI 0.30 mg/ dLCALCIUM 9.90 mg/dLAGE 40 GFR NonAA 80 GFR AA 97 eGFR >60 mL/min/1.73meGFR AA * >60 PTH, Intact 12 11/03/2015 10:02 AM C REACTIVE PROTEIN 9.0 mg/LURIC ACID 2.8 mg/dLRA Factor < 15.0 IU/mLSEDRATE 10.0 mm/hrANA Direct Negative 11/13/2015 3:50 PM WBC 15.0 RBC 4.61 HGB 14.0 g/dLHCT 42.60 %MCV 92.0 fLMCH 30.40 pgMCHC 32.90 g/dLRDW SD 44 RDW CV 12.90 %MPV 11.30 fLPLT 413 NRBC# 0.00 NRBC% 0.0 %NEUT 53.90 %%LYMP 35.80 %%MONO 5.20 %%EOS 4.0 %%BASO 0.50 %#NEUT 8.08 #LYMP 5.36 #MONO 0.78 #EOS 0.60 #BASO 0.07 MANUAL DIFF NOT IND TSH 0.520 uIU/mLGLUCOSE 149.0 mg/dLSODIUM 136.0 mmol/LPOTASSIUM 3.40 mmol/LCHLORIDE 101.0 mmol/LCO2 23.0 mmol/LBUN 10.0 mg/dLCREATININE 0.80 mg/dLCALCIUM 10.10 mg/dLAGE 40 GFR NonAA 80 GFR AA 97 eGFR >60 mL/min/1.73meGFR AA* >60 TROPONIN-I AD < 0.04 ng/mLMAGNESIUM 2.10 mg/dL 11/24/2015 11:50 AM WBC 18.2 RBC 4.65 [...] >60 03/05/2016 11:20 AM STREP SCREEN NEGATIVE GLUCOSE 121.0 mg/dLSODIUM 139.0 mmol/ LPOTASSIUM 3.60 mmol/LCHLORIDE 106.0 mmol/LCO2 22.0 mmol/LBUN 7.0 mg/ dLCREATININE 0.70 mg/dLCALCIUM 9.10 mg/dLAGE 41 GFR NonAA 93 GFR AA 113 eGFR > 60 mL/min/1.73meGFR AA* >60 C REACTIVE PROTEIN 23.0 mg/LWBC 20.0 RBC 4.24 HGB 12.70 g/dLHCT 39.80 %MCV 94.0 fLMCH 30.0 pgMCHC 31.90 g/dLRDW SD 47 RDW CV 14.0 %MPV 11.40 fLPLT 432 NRBC# 0.00 NRBC% 0.0 %NEUT 67.30 %%LYMP 25.10 %%MONO 3.90 % %EOS 2.50 %%BASO 0.50 %#NEUT 13.44 #LYMP 5.01 #MONO 0.78 #EOS 0.50 #BASO 0.09 MANUAL DIFF SEE BELOW SEGS 62 BANDS 7 LYMPHS 24 MONOS 2 EOS 5.0 % 04/16/2016 10:28 AM TOTAL VOLUME 3100 CREAT UR 24.10 mg/dLCREAT UR 24H 0.7 TOTAL VOLUME: 3100 ML Cortisol,F,ug/L,U <1 ug/LCortisol,F,ug/24hr,U <3 ug/24 hr 05/03/2016 5:02 PM GLUCOSE 106.0 mg/dLSODIUM 138.0 mmol/LPOTASSIUM 3.80 mmol/ LCHLORIDE 102.0 mmol/LCO2 22.0 mmol/LBUN 8.0 mg/dLCREATININE 0.70 mg/dLCALCIUM 10.50 mg/dLAGE 41 GFR NonAA 93 GFR AA 113 eGFR >60 mL/min/1.73meGFR AA* >60 WBC 18.9 RBC 4.43 HGB 13.20 g/dLHCT 39.80 %MCV 90.0 fLMCH 29.80 pgMCHC 33.20 g/ dLRDW SD 41 RDW CV 12.40 %MPV 10.50 fLPLT 434 NRBC# 0.00 NRBC% 0.0 %NEUT 59.30 % %LYMP 31.70 %%MONO 4.30 %%EOS 3.10 %%BASO 0.40 %#NEUT 11.21 #LYMP 5.98 #MONO 0.82 #EOS 0.58 #BASO 0.07 MANUAL DIFF SEE BELOW SEGS 69 BANDS 1 LYMPHS 28 MONOS 2 ANISO 1+ 05/05/2016 4:21 PM Salivary Cortisol, MS 0.104 Salivary Cortisol, MS 0.017 Salivary Cortisol, MS <0.010 06/18/2016 9:35 AM Adenovirus Not Detected Coronavirus 229E Not Detected Coronavirus HKU1 Not Detected Coronavirus NL63 Not Detected Coronavirus OC43 Not Detected Human Metapneumoviru Not Detected Human Rhinov/Enterov Not Detected Influenza A Not Detected Influenza B Not Detected Parainfluenza Virus1 Not Detected Parainfluenza Virus2 Not Detected Parainfluenza Virus3 Not Detected Parainfluenza Virus4 Not Detected Resp Syncytial Virus Not Detected Bordetella pertussis Not Detected Chlamydophila pneumo Not Detected Mycoplasma pneumonia Not Detected History Of Immunizations Name Date Admin Mfg Name Mf Code Trade Name Lot# Route Inj Vis Given Vis Pub CVX Influenza 03/30/2011 Not Entered NE Not Entered Not Entered Not Entered 03/31/2011 05/30/2016 141 Influenza 04/24/2014 sanofi pasteur PMC Fluzone [id number] Intramuscular Left Upper Arm 02/27/2014 01/15/2014 141 Influenza 02/13/2015 sanofi pasteur PMC Fluzone [id number] Intramuscular Left Deltoid 02/13/2015 01/03/2015 140 Tdap 06/06/2015 Gl[employer]oSmithKline SKB BOOSTRIX [id number] Intramuscular Left Deltoid 06/06/2015 07/23/2014 115 Influenza 03/18/2016 sanofi pasteur PMC Fluzone [id number] Intramuscular Left Deltoid 03/17/2016 01/03/2015 141 History [...] Jun 27 2014 6:10PM Ankle pain, left b 2014 3:51PM Tendon dysfunction Jul 01 2014 3:51PM Osteoporosis Jul 01 2014 3:51PM Elevated liver enzymes b 2014 3:51PM Sternal pain Jul 11 2014 4:22PM Right Otitis Media, Acute Jul 17 2014 10:04AM Asthma Jul 17 2014 10:04AM Headache Jul 18 2014 4:46PM Fall as cause of accidental injury in home as place of occurrence, initial encounter Jul 18 2014 4:46PM Ankle instability, left b 2014 11:30AM Ankle pain Jul 23 2014 [...] 10:48AM Otitis externa Jul 06 2016 10:48AM Payers Insurance Name Company Name Plan Name Plan Number Policy Number Policy Group Number Start Date Medicare [facility] Medicare [facility] [id number] N/A [facility] Comm [id number] N/A Medicare Part A Medicare - Lab/Xray [id number] N/A Medicare Part B Medicare Of [place] [id number] Tuesday, February 28, 2000 [place] [facility] [place] [facility] [place] [id number] Tuesday, November 10, 2009 Medicare Part A Medicare Part A [id number] N/A [place] [facility] [id number] May [facility] Plan of [id number] Wednesday, May 30, 2012 History of Encounters Visit Date Visit Type Provider 07/06/2016 Office visit Heena Dumont MD 06/18/2016 Office visit Kaylynn Mendez REPLANTER 06/07/2016 Office visit Sundeep Russell REPLANTER 06/04/2016 Office visit Heena Dumont MD 05/13/2016 Office visit Heena Dumont MD 05/03/2016 Office visit Heena Dumont MD 04/26/2016 Office visit Kaylynn Mendez REPLANTER 04/14/2016 Office visit Heena Dumont MD 04/13/2016 Office visit Kaylynn Mendez REPLANTER 04/02/2016 Office visit Lena El REPLANTER 04/02/2016 Office visit Heena Dumont MD 03/26/2016 Office visit Yesica Falcon REPLANTER 03/17/2016 Office visit Heena Dumont MD 03/05/2016 Office visit Kaylynn Mendez REPLANTER 02/16/2016 Office visit Heena Dumont MD 02/14/2016 Office visit Na Jones REPLANTER 01/16/2016 Office visit Heena Dumont MD 12/16/2015 Office visit Heena Dumont MD 11/24/2015 Office visit Kaylynn Mendez REPLANTER 11/18/2015 Office visit Heena Dumont MD 11/03/2015 Office visit Sundeep Russell REPLANTER 10/20/2015 Office visit Kaylynn Mendez REPLANTER 09/23/2015 Office visit Kaylynn Mendez REPLANTER 09/16/[address] Pepe Figueroa MD 09/02/2015 Office visit Kaylynn Mendez REPLANTER 09/01/2015 Office visit Kaylynn Mendez REPLANTER 07/30/2015 Office visit Heena Dumont MD 07/15/2015 Office visit Kaylynn Mendez REPLANTER 07/04/2015 Office visit Heena Dumont MD 06/06/2015 Office visit Heena Dumont MD 06/06/2015 Office visit Kaylynn Mendez REPLANTER 06/02/2015 Office visit Kaylynn Mendez REPLANTER 05/26/2015 Office visit Kaylynn Mendez REPLANTER 05/20/2015 Office visit Kaylynn Mendez REPLANTER 05/08/2015 Office visit Heena Dumont MD 05/06/2015 Office visit Kaylynn Mendez REPLANTER 04/29/2015 Office visit Kaylynn Mendez REPLANTER 03/27/2015 Voided Brittni Yanez REPLANTER 03/21/2015 Office visit Heena Dumont MD 03/12/2015 Office visit Kaylynn Mendez REPLANTER 02/26/2015 Office visit Brittni Yanez REPLANTER 02/13/2015 Office visit Heena Dumont MD 01/15/2015 Office visit Brittni Yanez REPLANTER 01/13/2015 Office visit Heena Dumont MD 01/08/[address] Carol Fowler MD 01/01/2015 Office visit Brittni Yanez REPLANTER 12/13/2014 Office visit Heena Dumont MD 11/27/2014 Office visit Kaylynn Mendez REPLANTER 11/14/2014 Office visit Heena Dumont MD 10/18/2014 Office visit Heena Dumont MD 10/17/2014 Hospital Eliseo Hoskins MD 10/09/2014 Office visit Heena Dumont MD 09/25/2014 Office visit Heena Dumont MD 09/17/2014 Office visit Kaylynn Mendez REPLANTER 09/04/2014 Office visit Heena Dumont MD 08/28/2014 Office visit Kaylynn Mendez REPLANTER 08/23/2014 [facility] Eliseo Hoskins MD 08/01/2014 Office visit Kaylynn Mendez REPLANTER 07/29/2014 Office visit Heena Dumont MD 07/25/2014 Nurse visit Heena Dumont MD 07/17/2014 Office visit Kaylynn Mendez REPLANTER 07/11/2014 Office visit Heena Dumont MD 07/01/2014 Office visit Heena Dumont MD 06/25/2014 Office visit Kaylynn Mendez REPLANTER 06/12/2014 Office visit Kaylynn Mendez REPLANTER 06/06/2014 Office visit Kaylynn Mendez REPLANTER 05/27/2014 Office visit Heena Dumont MD 04/20/2014 Office visit Yesica Falcon REPLANTER 03/29/2014 Office visit Na Jones REPLANTER 03/15/2014 Office visit Heena Dumont MD 2014 Office visit Heena Dumont MD 2014 [facility] John Hoskins MD 02/27/2014 Nurse visit Heena Dumont MD 02/13/2014 Office visit Lena El REPLANTER 02/07/2014 Office visit Heena Dumont MD 02/03/2014 Office visit Na Jones REPLANTER 01/30/2014 Office visit Kaylynn Mendez REPLANTER 01/24/2014 Office visit Sundeep Russell REPLANTER 01/16/2014 Office visit Kaylynn Mendez REPLANTER 01/10/2014 Nurse visit Kaylynn Mendez REPLANTER 01/08/2014 Office visit Kaylynn Mendez REPLANTER 12/05/2013 Office visit Kaylynn Walker REPLANTER 11/21/2013 Office visit Kaylynn Walker REPLANTER 10/23/2013 Office visit Brittni Yanez REPLANTER 10/17/2013 Nurse visit Heena Dumont MD 10/12/2013 Office visit Kaylynn Mendez REPLANTER 10/02/2013 Office visit Heena Dumont MD 09/20/2013 Nurse visit Kaylynn Mendez REPLANTER 09/20/2013 Voided Heena Dumont MD 09/14/2013 Office visit Kaylynn Walker REPLANTER 09/05/2013 Office visit Sundeep Russell REPLANTER 09/04/2013 Nurse visit Kaylynn Walker REPLANTER 08/31/2013 Office visit Kaylynn Walker REPLANTER 08/23/2013 Office visit Heena Dumont MD 08/10/2013 Office visit Kaylynn Walker REPLANTER 07/25/2013 Office visit Kaylynn Walker REPLANTER 07/18/2013 Office visit Kaylynn Walker REPLANTER 07/12/2013 Office visit Kaylynn Walker REPLANTER 06/28/2013 Nurse visit Kaylynn Walker REPLANTER 06/14/2013 Nurse visit Kaylynn Walker REPLANTER 06/08/2013 Nurse visit Kaylynn Andrea REPLANTER 05/31/2013 Nurse visit Chadd Norris DO 05/18/2013 Office visit Terese Davidson MD 05/16/2013 Office visit Kaylynn Mendez REPLANTER 05/09/2013 Office visit Kaylynn Mendez REPLANTER 04/29/2013 [facility] Eliseo Hoskins MD 04/25/2013 Nurse visit Kaylynn Mendez REPLANTER 04/17/2013 Office visit Kaylynn Walker REPLANTER 04/03/2013 Nurse visit Kaylynn Mendez REPLANTER 04/03/2013 Office visit Terese Davidson MD 03/28/2013 Office visit Sundeep Russell REPLANTER 03/21/2013 Office visit Kaylynn Mendez REPLANTER 03/20/2013 Office visit Terese Davidson MD 03/14/2013 Nurse visit Kaylynn Mendez REPLANTER 03/05/2013 Nurse visit Kaylynn Mendez REPLANTER 02/19/2013 Office visit Terese Davidson MD 02/16/2013 Nurse visit Kaylynn Mendez REPLANTER 02/09/2013 Office visit Sundeep Russell REPLANTER 02/08/2013 Nurse visit Kaylynn Mendez REPLANTER 02/01/2013 Nurse visit Kaylynn Walker REPLANTER 01/26/2013 Nurse visit Sabrina Mendez MARKETING SALES SUPERVISOR 01/25/2013 Office visit Kaylynn Mendez REPLANTER 01/22/2013 Office visit Yoan Castaneda MD 01/18/2013 Nurse visit Kaylynn Walker REPLANTER 01/11/2013 Nurse visit Kaylynn Walker REPLANTER 01/05/2013 Nurse visit Kaylynn Walker REPLANTER 12/29/2012 Office visit Kaylynn Walker REPLANTER 11/27/2012 Office visit Kaylynn Walker REPLANTER 11/08/2012 Office visit Odell Tierney MD 11/08/2012 Voided Odell Tierney MD 11/07/2012 Office visit Kaylynn Walker REPLANTER 10/31/2012 [facility] John Hoskins MD 10/31/2012 Office visit Kaylynn Walker REPLANTER 10/19/2012 Office visit Genoveva Ayala REPLANTER 10/10/2012 Office visit Kaylynn Walker REPLANTER 10/03/2012 Office visit Kaylynn Walker REPLANTER 09/26/2012 Office visit Kaylynn Walker REPLANTER 09/06/2012 Office visit Kaylynn Walker REPLANTER 09/06/2012 Office visit Odell Tierney MD 08/31/2012 Voided Kaylynn Mendez REPLANTER 07/28/2012 Office visit Kaylynn Mendez REPLANTER 07/27/2012 Office visit David Joyner DO 07/20/2012 [facility] DO 07/13/2012 [facility] DO 07/11/2012 Office visit Kaylynn Mendez REPLANTER 06/27/2012 [facility] Odell Tierney MD 06/21/2012 Office visit David Joyner DO 06/21/2012 Office visit Odell Tierney MD 06/20/2012 Office visit Brittni Yanez REPLANTER 06/06/2012 Office visit Odell Tierney MD 05/03/2012 Office visit Kaylynn Mendez REPLANTER 04/28/2012 Office visit Brittni Yanez REPLANTER 04/11/2012 Office visit Kaylynn Mendez REPLANTER 04/06/2012 [facility] John Hoskins MD 03/30/2012 Office visit Kaylynn Mendez REPLANTER 03/15/2012 Office visit Kaylynn Mendez REPLANTER 03/15/2012 Office visit Odell Tierney MD 02/09/2012 Office visit Kaylynn Mendez REPLANTER 12/23/2011 Office visit Kaylynn Walker REPLANTER 11/02/2011 Office visit Kaylynn Walker REPLANTER 10/14/2011 Office visit Kaylynn Mendez REPLANTER 09/27/2011 Office visit Kaylynn Mendez REPLANTER 08/19/2011 [facility] John Hoskins MD 08/18/2011 [facility] John Hoskins MD 08/18/2011 Office visit Kaylynn Mendez REPLANTER 08/02/2011 Office visit Kaylynn Walker REPLANTER 07/08/2011 Office visit Kaylynn Andrea REPLANTER 07/05/2011 Office visit dOell Tierney MD 06/15/2011 Office visit Kaylynn Mendez REPLANTER 05/14/2011 Office visit Kaylynn Mendez REPLANTER 05/11/2011 Office visit Odell Tierney MD 04/28/2011 Office visit Kaylynn Menedz REPLANTER 03/02/2011 Office visit Chadd Norris DO 02/17/2011 [...]
--- OUTSIDE RECORDS SUMMARY | 2018-05-09 15:09 | XMS REPORT ---
Author Author Heena Dumont Organization [facility] Address [address] [place], [place] [id number] Care Team Providers Care Business Services Tech Name Role Phone Heena Dumont PCP Heena [...] SIG Comments Nexium 40 mg oral capsule,delayed release(/EC) take 1 capsule (40 mg) by oral [...] 1 TIME PER DAY FOR 30 DAYS metoprolol succinate 100 mg [...] daily at the same time each day metoprolol succinate 100 mg oral tablet extended release 24 hr 11/24/2015 TAKE 1 TABLET BY MOUTH EVERY DAY Anoro Ellipta 62.5-25 mcg/actuation inhalation blister with device 12/02/2015 INHALE 1 PUFF BY INHALATION ROUTE ONCE DAILY AT THE SAME TIME EACH DAY nortriptyline 10 mg oral capsule 12/22/2015 TAKE 1 CAPSULE BY ORAL ROUTE ONCE A DAY (AT BEDTIME) FOR 30 DAYS metoclopramide HCl 5 mg oral tablet take 1 tab by oral route 4 times per day 30 minutes before meals and at bedtime clobetasol-emollient 0.05 % topical foam 01/19/2016 APPLY BY EXTERNAL ROUTE ONCE DAILY [employer] IQ Meter miscellaneous kit 01/21/2016 test 2 x daily, Dx: E11.9, 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 OneTouch ZEFR Lancets 33 gauge miscellaneous [facility] [place]21[place]2016 use as directed cetirizine 10 mg oral tablet 01/26/2016 TAKE 1 TABLET BY MOUTH EVERY DAY nortriptyline 10 mg oral capsule 01/28/2016 TAKE 1 CAPSULE BY ORAL ROUTE ONCE A DAY (AT BEDTIME) FOR 30 DAYS omeprazole 20 mg oral capsule,delayed release(DR/EC) 03/19/2016 TAKE 1 CAPSULE (20 MG) BY ORAL ROUTE ONCE DAILY BEFORE A MEAL FOR 30 DAYS Lasix 20 mg oral tablet 04/12/2016 TAKE 1 TABLET (20 MG) BY ORAL ROUTE ONCE DAILY FOR 1-3 DAYS AT A TIME THEN REASSESS SWELLING, USE PRN potassium chloride 10 mEq oral capsule, extended release 04/12/2016 TAKE 1 CAPSULE (10 MEQ) BY ORAL ROUTE ONLY WHEN TAKING LASIX. Savella 50 mg oral tablet 06/04/2016 12/01/2016 take 1 tablet (50 mg) by oral route 2 times per day for 30 days montelukast 10 mg oral tablet 07/01/2016 12/28/2016 TAKE 1 TABLET BY MOUTH EVERY EVENING for 30 days omeprazole 20 mg oral capsule,delayed release(DR/EC) 07/05/2016 TAKE 1 CAPSULE (20 MG) BY ORAL ROUTE ONCE DAILY BEFORE A MEAL FOR 30 DAYS metoprolol succinate 100 mg oral tablet extended release 24 hr 07/05/2016 TAKE 1 TABLET BY MOUTH EVERY DAY cetirizine 10 mg oral tablet 08/23/2016 TAKE 1 TABLET BY MOUTH EVERY DAY nortriptyline 10 mg oral capsule 08/23/2016 TAKE 1 CAPSULE BY ORAL ROUTE ONCE A DAY (AT BEDTIME) FOR 30 DAYS Geodon 60 mg oral capsule take 1 capsule (60 mg) by oral route once daily with food Jardiance 10 mg oral tablet take 1 tablet (10 mg) by oral route once daily in the morning atorvastatin 80 mg oral tablet 09/24/2016 03/23/2017 take 1 tablet (80 mg) by oral route once daily for 30 days Riddel said to increase from 40 to 80 due to recent Lipid panel oxycodone 5 mg oral tablet 10/06/2016 take 0.5 tablet only as needed. Myrbetriq 25 mg oral tablet extended release 24 hr 10/20/2016 TAKE 1 TABLET (25 MG) BY ORAL ROUTE ONCE DAILY SWALLOWING WHOLE WITH WATER. DO NOT CRUSH, CHEW AND/OR DIVIDE. FOR 30 DAYS Cipro 500 mg oral tablet 11/01/2016 11/08/2016 take 1 tablet (500 mg) by oral route every 12 hours for 7 days MS Contin 30 mg oral tablet extended release 11/02/2016 12/02/2016 take 0.5 tablet by oral route every 12 hours for 30 days Name Start Date Expiration Date SIG [...] 08/27/2014 use as directed for 99 days Alburnett 5-325 mg oral tablet 06/17/2014 06/27/2014 take [...] a day as needed for 30 days mszbwnwe-mfqvnnpcn-AO 3.5-10,000-1 mg/mL-unit/mL-% otic drops,suspension 201401/08/2015 instill 4 [...] oral route once daily for 4 days Myrbetriq 25 mg oral tablet extended release 24 hr 06/08/2016 09/06/2016 take 1 tablet (25 mg) by oral route once daily swallowing whole with water. Do not crush, chew and/or divide. for 30 days hydrocortisone-acetic acid 1-2 % otic drops 07/07/2016 07/17/2016 instill 2 drops into right ear by otic route 3 times per day. Ok for similiar substitution or individual components. iipjkoed-gggxyrnoz-WN 3.5-10,000-1 mg/mL-unit/mL-% otic drops,suspension 201607/23/2016 instill 4 drops into affected ear(s) by otic route 3 times per day for 7 days Discontinued Name Start Date [...] mL in 24 hours Chantix Starting Month 0.5 mg (11)- 1 mg (42) oral [...] route every 6 hours for 30 days Problem List Description Status Onset Anemia Active [...] HC BMI BSA BMI Percentile O2 Sat(%) 11/02/2016 10:28:00 AM 118 mmHg 80 mmHg 96 bpm 18 rpm 98 F 158 lbs 63 in 27.99 kg/m2 1.78 m2 98 % 10/06/2016 11:43:00 AM 122 mmHg 75 mmHg 79 bpm 18 rpm 97.3 F 63 in 99 % 09/22/2016 9:59:00 AM 114 mmHg 70 mmHg 88 bpm 16 rpm 98.1 F 158.25 lbs 63 in 28.03 kg/m2 1.79 m2 95 % 09/09/2016 8:50:00 AM 130 mmHg 74 mmHg 83 bpm 18 rpm 97.3 F 155.125 lbs 63 in 27.4789 kg/m 1.7685 m 97 % 08/26/2016 3:05:00 PM 124 mmHg 80 mmHg 91 bpm 16 rpm 99.1 F 155 lbs 63 in 27.46 kg/m2 1.77 m2 98 % 07/09/2016 3:23:00 PM 122 mmHg [...] Reviewed 04/28/2011 12:00 AM Decadron 1 mg NDC#[id number] (Jr) Reviewed 04/28/2011 12:00 AM Depo-Medrol 80 mg NDC#[id number]-Bbwjhzvr Reviewed 09/02/2015 12:00 AM Toradol 60 Mg NDC#2744-7889-61 Reviewed 09/02/2015 12:00 AM Phenergan, Up to 50 Mg RHC Medicaid Reviewed 09/16/2015 12:00 AM Toradol 60 Mg NDC#8519-3222-82 Reviewed 09/16/2015 12:00 AM Phenergan Up to 50 mg RHC Medicare Reviewed 05/11/2011 12:00 AM N BLOCK INJ OCCIPITAL Reviewed 05/11/2011 12:00 AM Kenalog Sc-[address]-20 ANNA Reviewed 11/13/2015 12:00 AM ASSAY OF [...] INJ SC/IM Reviewed 07/08/2011 12:00 AM Toradol,15mg [facility]#[id number], [place] Reviewed 07/08/2011 12:00 AM Phenergan 50 Mg Im [facility] 4594-4849-69 [place] Reviewed 01/21/2016 12:00 AM ECG MONIT/REPRT UP TO 48 HRS Returned 08/02/2011 12:00 AM THER/PROPH/DIAG INJ SC/IM Reviewed 08/02/2011 12:00 AM Decadron 1 mg [facility]#[id number] (Jr) Reviewed 08/02/2011 12:00 AM Depo-Medrol 80 mg [facility]#[id number]-Wamhsrgp Reviewed 03/05/2016 12:00 AM COMPLETE CBC W/AUTO DIFF WBC Reviewed 03/05/2016 12:00 AM STREP A ASSAY W/OPTIC Reviewed 03/05/2016 12:00 AM C-REACTIVE PROTEIN Reviewed 03/18/2016 12:00 AM [facility] MEDICARE - flu vaccine administration Reviewed 03/18/2016 [...] Reviewed 09/27/2011 12:00 AM Depo-Medrol 80 mg [facility]#[id number]-Vvugqari Reviewed 09/27/2011 12:00 AM Depo-Medrol 40 mg N[facility]#[id number] Reviewed 07/06/2016 12:00 AM CHEST X-RAY 4/> [...] 10/06/2016 12:00 AM STREP A ASSAY W/OPTIC Returned 12/23/2011 12:00 AM THER/PROPH/DIAG INJ SC/IM Reviewed 12/23/2011 12:00 AM Decadron 1 mg N[facility]#[id number] (Jr) Reviewed 12/23/2011 12:00 AM Depo-Medrol 80 mg N[facility]#[id number]-Zxzbzwle Reviewed 11/02/2016 11:45 AM URINALYSIS AUTO W/O SCOPE Reviewed 02/09/2012 12:00 AM THER/PROPH/DIAG INJ SC/IM Reviewed 02/09/2012 12:00 AM Decadron 1 mg [facility]#[id number] (Jr) Reviewed 02/09/2012 12:00 AM Depo-Medrol 80 mg N[facility]#[id number]-Iimimdpo Reviewed 03/15/2012 12:00 AM N BLOCK INJ OCCIPITAL Reviewed 03/15/2012 12:00 AM Kenalog [id number]-[id number] ANNA Reviewed 04/11/2012 12:00 AM COMPLETE CBC W/AUTO DIFF WBC Reviewed 04/11/2012 12:00 AM COMPREHEN METABOLIC PANEL Reviewed 04/11/2012 12:00 AM LIPID PANEL Reviewed 04/11/2012 12:00 AM ASSAY THYROID STIM HORMONE Reviewed 04/11/2012 12:00 AM DESTRUCT PREMALG LES 2-14 Reviewed 06/20/2012 12:00 AM THER/PROPH/DIAG INJ SC/IM Reviewed 06/20/2012 12:00 AM Decadron, Per 1 Mg ND# [address]-47 Reviewed 06/20/2012 12:00 AM Depo-Medrol, Per 80 Mg ND#2755-8334-82 Reviewed 09/06/2012 12:00 AM N BLOCK INJ OCCIPITAL Reviewed 09/06/2012 12:00 AM Kenalog Wi-[address]-20 ANNA Reviewed 09/06/2012 12:00 AM X-RAY EXAM RIBS UNI 2 VIEWS Reviewed 09/26/2012 12:00 AM THER/PROPH/DIAG INJ SC/IM Reviewed 09/26/2012 12:00 AM Decadron, Per 1 Mg ND# [address]-59 Reviewed 09/26/2012 12:00 AM Depo-Medrol, Per 80 Mg [facility]#9786-0645-68 Reviewed 10/03/2012 12:00 AM URINALYSIS AUTO W/O SCOPE Reviewed 10/03/2012 12:00 AM THER/PROPH/DIAG INJ SC/IM Reviewed 10/03/2012 12:00 AM Toradol 60 Mg ND#8488-2996-35 Reviewed 10/03/2012 12:00 AM Phenergan, 25Mg ND#5314-1569-81 Reviewed 10/19/2012 12:00 AM N BLOCK INJ OCCIPITAL Reviewed 10/19/2012 12:00 AM Kenalog, Per 10 Mg [facility]#8896-2865-93 Reviewed 10/19/2012 12:00 AM Toradol 30 Mg ND#9923-3355-61 Reviewed 10/19/2012 12:00 AM THER/PROPH/DIAG INJ SC/IM Reviewed 10/31/2012 12:00 AM COMPLETE CBC W/AUTO DIFF WBC Reviewed 10/31/2012 12:00 AM COMPREHEN METABOLIC PANEL Reviewed 10/31/2012 12:00 AM LIPID PANEL Reviewed 10/31/2012 12:00 AM ELECTROCARDIOGRAM COMPLETE Reviewed 11/03/2012 12:[address] THORAX W/O & W/DYE Reviewed 11/08/2012 12:00 AM N BLOCK INJ OCCIPITAL Reviewed 11/08/2012 12:00 AM Kenalog Wy-[address]-20 ANNA Reviewed 11/27/2012 12:00 AM COMPLETE CBC [...] 01/25/2013 12:00 AM Decadron, Per 1 Mg [facility]# [address]-77 Reviewed 01/25/2013 12:00 AM Depo-Medrol, Per 80 Mg [facility]#0245-0780-41 Reviewed 01/26/2013 12:00 AM IMMUNOTHERAPY ONE INJECTION [...] 05/16/2013 12:00 AM Decadron, Per 1 Mg [facility]# [address]-72 Reviewed 05/16/2013 12:00 AM Depo-Medrol, Per 80 Mg [facility]#6298-4378-09 Reviewed 05/31/2013 12:00 AM IMMUNOTHERAPY INJECTIONS Reviewed 06/08/2013 12:00 AM IMMUNOTHERAPY INJECTIONS Reviewed 06/14/2013 12:00 AM IMMUNOTHERAPY INJECTIONS Reviewed 06/28/2013 12:00 AM IMMUNOTHERAPY INJECTIONS Reviewed 07/12/2013 12:00 AM X-RAY EXAM RIBS UNI 2 VIEWS Reviewed 07/18/2013 12:00 AM Toradol 60 Mg [facility]#0523-6214-19 Reviewed 07/18/2013 12:00 AM THER/PROPH/DIAG INJ SC/IM Reviewed 08/23/2013 12:00 AM COMPLETE CBC W/AUTO DIFF WBC Reviewed 08/23/2013 12:00 AM COMPREHEN METABOLIC PANEL Reviewed 08/23/2013 12:00 AM LIPID PANEL Reviewed 08/31/2013 12:00 AM X-RAY EXAM OF LOWER LEG Reviewed 09/04/2013 12:00 AM IMMUNOTHERAPY INJECTIONS Reviewed 09/14/2013 12:00 AM THER/PROPH/DIAG INJ SC/IM Reviewed 09/14/2013 12:00 AM Decadron, Per 1 Mg [facility]# [address]-03 Reviewed 09/14/2013 12:00 AM Depo-Medrol, Per 80 Mg [facility]#5999-8165-64 Reviewed 09/20/2013 12:00 AM IMMUNOTHERAPY INJECTIONS Reviewed [...] INJ OCCIPITAL Reviewed 12/10/2009 12:00 AM Kenalog Ti-[address]-20 ANNA Reviewed 12/16/2009 12:00 AM HIV-1ANTIBODY Reviewed 12/16/2009 12:00 AM COMPLETE CBC W/AUTO DIFF WBC Reviewed 12/16/2009 12:00 AM METABOLIC PANEL TOTAL CA Reviewed 12/16/2009 12:00 AM Type and screen Reviewed 12/16/2009 12:00 AM PROTHROMBIN TIME Reviewed 12/16/2009 12:00 AM THROMBOPLASTIN TIME PARTIAL Reviewed 03/18/2010 12:00 AM DRAIN/INJ JOINT/BURSA W/O US Reviewed 03/18/2010 12:00 AM Kenalog Je-[address]-20 ANNA Reviewed 11/21/2013 12:00 AM RADEX HAND MINIMUM 3 VIEWS Reviewed 06/03/2010 12:00 AM INJ TRIGGER POINT 1/2 MUSCL Reviewed 06/03/2010 12:00 AM Kenalog per 10Mg Im-[facility]#[address]-67(Niall) Reviewed 12/05/2013 12:00 AM COMPLETE CBC W/AUTO [...] Reviewed 07/23/2010 12:00 AM Kenalog per 10Mg Im-[facility]#[address]-74(Niall) Reviewed 2014 12:00 AM COMPLETE CBC W/AUTO [...] INJ OCCIPITAL Reviewed 10/01/2010 12:00 AM Kenalog Su-[address]-20 ANNA Reviewed 07/25/2014 12:00 AM THER/PROPH/DIAG INJ [...] Quant,IgM <0.80 RMSF , IgG, EIA Negative [facility] Spotted Fever,IgM 0.51 E. chaffeensis (HME) [...] pneumo Not Detected Mycoplasma pneumonia Not Detected 09/22/2016 11:10 AM WBC 16.6 RBC 4.32 HGB 13.40 g/dLHCT 40.90 %MCV 95.0 fLMCH 31.0 pgMCHC 32.80 g/dLRDW SD 46 RDW CV 13.10 %MPV 11.30 fLPLT 427 NRBC# 0.00 NRBC% 0.0 %NEUT 59.20 %%LYMP 30.10 %%MONO 4.80 %%EOS 4.90 %%BASO 0.50 %#NEUT 9.83 #LYMP 5.01 #MONO 0.80 #EOS 0.81 #BASO 0.08 MANUAL DIFF NOT IND MICROALBUMIN UR 5.0 ug/mLGLUCOSE 173.0 mg/dLSODIUM 137.0 mmol/LPOTASSIUM 3.50 mmol/LCHLORIDE 105.0 mmol/LCO2 22.0 mmol/LBUN 12.0 mg/dLCREATININE 0.80 mg/ dLSGOT/AST 38.0 IU/LSGPT/ALT 55.0 IU/LALK PHOS 67.0 IU/LTOTAL PROTEIN 8.10 g/ dLALBUMIN 4.40 g/dLTOTAL BILI 0.30 mg/dLCALCIUM 9.70 mg/dLAGE 41 GFR NonAA 79 GFR AA 96 eGFR >60 mL/min/1.73meGFR AA* >60 TRIGLYCERIDES 667.0 mg/ dLCHOLESTEROL 242.0 mg/dLHDL 11.0 mg/dLTOT CHOL/HDL 22.0 LDL (CALC) INVALID mg/ dLHGB A1C 6.20 %Est Avg Glucose 131.2 mg/dLMAGNESIUM 2.0 mg/dL 10/06/2016 1:32 PM STREP SCREEN NEGATIVE 11/02/2016 11:45 AM Clarity Ur clear Color Ur yellow Glucose Ur-sCnc >=1000mg/ dL Bilirub Ur Ql Strip neg Ketones Ur Ql Strip neg Sp Gr Ur Qn 1.020 Hgb Ur Ql Strip neg pH Ur-LsCnc 5.5 Prot Ur Ql Strip neg Urobilinogen Ur-mCnc 0.2 E.U../ dL Nitrite Ur Ql Strip neg WBC Est Ur Ql Strip neg History Of Immunizations Name Date Admin Mfg Name Mfg Code Trade Name Lot# Route Inj Vis Given Vis Pub CVX Influenza 03/30/2011 Not Entered NE Not Entered Not Entered Not Entered 03/31/2011 05/30/2016 141 Influenza 04/24/2014 sanofi pasteur PMC Fluzone [id number] Intramuscular Left Upper Arm 02/27/2014 01/15/2014 141 Influenza 02/13/2015 sanofi pasteur PMC Fluzone [id number] Intramuscular Left Deltoid 02/13/2015 01/03/2015 140 Tdap 06/06/2015 GlaxoSmithKline SKB BOOSTRIX [id number] Intramuscular Left Deltoid 06/06/2015 07/23/2014 115 Influenza 03/18/2016 sanofi pasteur PMC Fluzone [id number] Intramuscular Left Deltoid 03/17/2016 01/03/2015 141 History [...] 10:30AM Lumbago Jul 23 2010 9:49AM Bursitis b 2010 9:49AM Lumbago Aug 26 2010 9:52AM [...] 3:51PM Tendon dysfunction b 2014 3:51PM Osteoporosis b 2014 3:51PM Elevated liver enzymes b 2014 [...] 29 2014 3:46PM Ankle pain, chronic, left b 2014 4:22PM Vertigo Jul 11 2014 4:22PM [...] 09 2016 3:50PM Cervical spinal stenosis Feb 10 [...] 2016 10:33AM Polyuria Nov 02 2016 11:45AM Payers Insurance Name Company Name Plan Name Plan Number Policy Number Policy Group Number Start Date Medicare RHC Medicare RHC [id number] N/A [facility] - RHC - [facility] of [facility] RHC Comm [id number] N/A Medicare Part A Medicare - Lab/Xray [id number] N/A Medicare Part B Medicare Of [place] [id number] Monday, February 28, 2000 [place] [facility] [place] [id number] Tuesday, November 10, 2009 Medicare Part A Medicare Part A [id number] N/A [place] [employer] - RHC [place] [employer] - RHC [id number] [facility] Comm Plan of [id number] Wednesday, May 30, 2012 History of Encounters Visit Date Visit Type Provider 11/02/2016 Office visit Heena Dumont MD 10/06/2016 Office visit Kaylynn Mendez FOOT DRILL OPERATOR 09/22/2016 Office visit Heena Dumont MD 09/09/2016 Office visit Kaylynn Mendez FOOT DRILL OPERATOR 08/27/2016 Office visit Riccardo Cardoza MD 08/26/2016 Office visit Heena Dumont MD 07/09/2016 Office visit Riccardo Cardoza MD 07/06/2016 Office visit Heena Dumont MD 06/18/2016 Office visit Kaylynn Mendez FOOT DRILL OPERATOR 06/07/2016 Office visit Sundeep Russell FOOT DRILL OPERATOR 06/04/2016 Office visit Heena Dumont MD 05/13/2016 Office visit Heena Dumont MD 05/03/2016 Office visit Heena Dumont MD 04/26/2016 Office visit Kaylynn Mendez FOOT DRILL OPERATOR 04/14/2016 Office visit Heena Dumont MD 04/13/2016 Office visit Kaylynn Mendez FOOT DRILL OPERATOR 04/02/2016 Office visit Lena El FOOT DRILL OPERATOR 04/02/2016 Office visit Heena Dumont MD 03/26/2016 Office visit Yesica Falcon FOOT DRILL OPERATOR 03/17/2016 Office visit Heena Dumont MD 03/05/2016 Office visit Kaylynn Mendez FOOT DRILL OPERATOR 02/16/2016 Office visit Heena Dumont MD 02/14/2016 Office visit Na Jones FOOT DRILL OPERATOR 01/16/2016 Office visit Heena Dumont MD 12/16/2015 Office visit Heena Dumont MD 11/24/2015 Office visit Kaylynn Mendez FOOT DRILL OPERATOR 11/18/2015 Office visit Heena Dumont MD 11/03/2015 Office visit Sundeep Russell FOOT DRILL OPERATOR 10/20/2015 Office visit Kaylynn Walker FOOT DRILL OPERATOR 09/23/2015 Office visit Kaylynn Mendez FOOT DRILL OPERATOR 09/16/[address] Pepe Figueroa MD 09/02/2015 Office visit Kaylynn Mendez FOOT DRILL OPERATOR 09/01/2015 Office visit Kaylynn Walker FOOT DRILL OPERATOR 07/30/2015 Office visit Heena Dumont MD 07/15/2015 Office visit Kaylynn Mendez FOOT DRILL OPERATOR 07/04/2015 Office visit Heena Dumont MD 06/06/2015 Office visit Heena Dumont MD 06/06/2015 Office visit Kaylynn Mendez FOOT DRILL OPERATOR 06/02/2015 Office visit Kaylynn Walker FOOT DRILL OPERATOR 05/26/2015 Office visit Kaylynn Mendez FOOT DRILL OPERATOR 05/20/2015 Office visit Kaylynn Mendez FOOT DRILL OPERATOR 05/08/2015 Office visit Heena Dumont MD 05/06/2015 Office visit Kaylynn Mendez FOOT DRILL OPERATOR 04/29/2015 Office visit Kaylynn Mendez FOOT DRILL OPERATOR 03/27/2015 Voided Brittni Yanez FOOT DRILL OPERATOR 03/21/2015 Office visit Heena Dumont MD 03/12/2015 Office visit Kaylynn Mendez FOOT DRILL OPERATOR 02/26/2015 Office visit Brittni Yanez FOOT DRILL OPERATOR 02/13/2015 Office visit Heena Dumont MD 01/15/2015 Office visit Brittni Yanez FOOT DRILL OPERATOR 01/13/2015 Office visit Heena Dumont MD 01/08/[address] Carol Fowler MD 01/01/2015 Office visit Brittni Yanez FOOT DRILL OPERATOR 12/13/2014 Office visit Heena Dumont MD 11/27/2014 Office visit Kaylynn Mendez FOOT DRILL OPERATOR 11/14/2014 Office visit Heena Dumont MD 10/18/2014 Office visit Heena Dumont MD 10/17/2014 [facility] Eliseo Hoskins MD 10/09/2014 Office visit Heena Dumont MD 09/25/2014 Office visit Heena Dumont MD 09/17/2014 Office visit Kaylynn Mendez FOOT DRILL OPERATOR 09/04/2014 Office visit Heena Dumont MD 08/28/2014 Office visit Kaylynn Mendez FOOT DRILL OPERATOR 08/23/2014 [facility] Eliseo Hoskins MD 08/01/2014 Office visit Kaylynn Mendez FOOT DRILL OPERATOR 07/29/2014 Office visit Heena Dumont MD 07/25/2014 Nurse visit Heena Dumont MD 07/17/2014 Office visit Kaylynn Mendez FOOT DRILL OPERATOR 07/11/2014 Office visit Heena Dumont MD 07/01/2014 Office visit Heena Dumont MD 06/25/2014 Office visit Kaylynn Mendez FOOT DRILL OPERATOR 06/12/2014 Office visit Kaylynn Mendez FOOT DRILL OPERATOR 06/06/2014 Office visit Kaylynn Mendez FOOT DRILL OPERATOR 05/27/2014 Office visit Heena Dumont MD 04/20/2014 Office visit Yesica Falcon FOOT DRILL OPERATOR 03/29/2014 Office visit Na Jones FOOT DRILL OPERATOR 03/15/2014 Office visit Heena Dumont MD 2014 Office visit Heena Dumont MD 2014 [facility] Eliseo Hoskins MD 02/27/2014 Nurse visit Heena Dumont MD 02/13/2014 Office visit Lena El FOOT DRILL OPERATOR 02/07/2014 Office visit Heena Dumont MD 02/03/2014 Office visit Na Jones FOOT DRILL OPERATOR 01/30/2014 Office visit Kaylynn Mendez FOOT DRILL OPERATOR 01/24/2014 Office visit Sundeep Russell FOOT DRILL OPERATOR 01/16/2014 Office visit Kaylynn Mendez FOOT DRILL OPERATOR 01/10/2014 Nurse visit Kaylynn Mendez FOOT DRILL OPERATOR 01/08/2014 Office visit Kaylynn Mendez FOOT DRILL OPERATOR 12/05/2013 Office visit Kaylynn Mendez FOOT DRILL OPERATOR 11/21/2013 Office visit Kaylynn Mendez FOOT DRILL OPERATOR 10/23/2013 Office visit Brittni Yanez FOOT DRILL OPERATOR 10/17/2013 Nurse visit Heena Dumont MD 10/12/2013 Office visit Kaylynn Mendez FOOT DRILL OPERATOR 10/02/2013 Office visit Heena Dumont MD 09/20/2013 Nurse visit Kaylynn Mendez FOOT DRILL OPERATOR 09/20/2013 Voided Heena Dumont MD 09/14/2013 Office visit Kaylynn Mendez FOOT DRILL OPERATOR 09/05/2013 Office visit Sundeep Russell FOOT DRILL OPERATOR 09/04/2013 Nurse visit Kaylynn Mendez FOOT DRILL OPERATOR 08/31/2013 Office visit Kaylynn Mendez FOOT DRILL OPERATOR 08/23/2013 Office visit Heena Dumont MD 08/10/2013 Office visit Kaylynn Walker FOOT DRILL OPERATOR 07/25/2013 Office visit Kaylynn Walker FOOT DRILL OPERATOR 07/18/2013 Office visit Kaylynn Walker FOOT DRILL OPERATOR 07/12/2013 Office visit Kaylynn Walker FOOT DRILL OPERATOR 06/28/2013 Nurse visit Kaylynn Walker FOOT DRILL OPERATOR 06/14/2013 Nurse visit Kaylynn Walker FOOT DRILL OPERATOR 06/08/2013 Nurse visit Kaylynn Walker FOOT DRILL OPERATOR 05/31/2013 Nurse visit Chadd Norris DO 05/18/2013 Office visit Terese Davidson MD 05/16/2013 Office visit Kaylynn Walker FOOT DRILL OPERATOR 05/09/2013 Office visit Kaylynn Walker FOOT DRILL OPERATOR 04/29/2013 [facility] John Hoskins MD 04/25/2013 Nurse visit Kaylynn Walker FOOT DRILL OPERATOR 04/17/2013 Office visit Kaylynn Walker FOOT DRILL OPERATOR 04/03/2013 Nurse visit Kaylynn Walker FOOT DRILL OPERATOR 04/03/2013 Office visit Terese Davidson MD 03/28/2013 Office visit Sundeep Russell FOOT DRILL OPERATOR 03/21/2013 Office visit Kaylynn Mendez FOOT DRILL OPERATOR 03/20/2013 Office visit Terese Davidson MD 03/14/2013 Nurse visit Kaylynn Walker FOOT DRILL OPERATOR 03/05/2013 Nurse visit Kaylynn Walker FOOT DRILL OPERATOR 02/19/2013 Office visit Terese Davidson MD 02/16/2013 Nurse visit Kaylynn Walker FOOT DRILL OPERATOR 02/09/2013 Office visit Sundeep Russell FOOT DRILL OPERATOR 02/08/2013 Nurse visit Kaylynn Walker FOOT DRILL OPERATOR 02/01/2013 Nurse visit Kaylynn Walker FOOT DRILL OPERATOR 01/26/2013 Nurse visit Sabrina Mendez [employer]OL SPECIALIST 01/25/2013 Office visit Kaylynn Walker FOOT DRILL OPERATOR 01/22/2013 Office visit Yoan Castaneda MD 01/18/2013 Nurse visit Kaylynn Walker FOOT DRILL OPERATOR 01/11/2013 Nurse visit Kaylynn Walker FOOT DRILL OPERATOR 01/05/2013 Nurse visit Kaylynn Walker FOOT DRILL OPERATOR 12/29/2012 Office visit Kaylynn Walker FOOT DRILL OPERATOR 11/27/2012 Office visit Kaylynn Walker FOOT DRILL OPERATOR 11/08/2012 Office visit Odell Tierney MD 11/08/2012 Voided Odell Tierney MD 11/07/2012 Office visit Kaylynn Walker FOOT DRILL OPERATOR 10/31/2012 [facility] John Hoskins MD 10/31/2012 Office visit Kaylynn Walker FOOT DRILL OPERATOR 10/19/2012 Office visit Genoveva Ayala FOOT DRILL OPERATOR 10/10/2012 Office visit Kaylynn Walker FOOT DRILL OPERATOR 10/03/2012 Office visit Kaylynn Walker FOOT DRILL OPERATOR 09/26/2012 Office visit Kaylynn Mendez FOOT DRILL OPERATOR 09/06/2012 Office visit Kaylynn Mendez FOOT DRILL OPERATOR 09/06/2012 Office visit Odell Tierney MD 08/31/2012 Voided Kaylynn Mendez FOOT DRILL OPERATOR 07/28/2012 Office visit Kaylynn Mendez FOOT DRILL OPERATOR 07/27/2012 Office visit David rA DO 07/20/2012 [facility] David Joyner DO 07/13/2012 Hospital David Joyner DO 07/11/2012 Office visit Kaylynn Mendez FOOT DRILL OPERATOR 06/27/2012 Hospital Odell Tierney MD 06/21/2012 Office visit David Joyner DO 06/21/2012 Office visit Odell Tierney MD 06/20/2012 Office visit Brittni Yanez FOOT DRILL OPERATOR 06/06/2012 Office visit Odell Tierney MD 05/03/2012 Office visit Kaylynn Mendez FOOT DRILL OPERATOR 04/28/2012 Office visit Brittni Yanez FOOT DRILL OPERATOR 04/11/2012 Office visit Kaylynn Mendez FOOT DRILL OPERATOR 04/06/2012 [facility] John Hoskins MD 03/30/2012 Office visit Kaylynn Mendez FOOT DRILL OPERATOR 03/15/2012 Office visit Kaylynn Mendez FOOT DRILL OPERATOR 03/15/2012 Office visit Odell Tierney MD 02/09/2012 Office visit Kaylynn Mendez FOOT DRILL OPERATOR 12/23/2011 Office visit Kaylynn Mendez FOOT DRILL OPERATOR 11/02/2011 Office visit Kaylynn Mendez FOOT DRILL OPERATOR 10/14/2011 Office visit Kaylynn Andrea FOOT DRILL OPERATOR 09/27/2011 Office visit Kaylynn Mendez FOOT DRILL OPERATOR 08/19/2011 [facility] John Hoskins MD 08/18/2011 [facility] John Hoskins MD 08/18/2011 Office visit Kaylynn Mendez FOOT DRILL OPERATOR 08/02/2011 Office visit Kaylynn Mendez FOOT DRILL OPERATOR 07/08/2011 Office visit Kaylynn Mendez FOOT DRILL OPERATOR 07/05/2011 Office visit Odell Tierney MD 06/15/2011 Office visit Kaylynn Mendez FOOT DRILL OPERATOR 05/14/2011 Office visit Kaylynn Mendez FOOT DRILL OPERATOR 05/11/2011 Office visit Odell Tierney MD 04/28/2011 Office visit Kaylynn Mendez FOOT DRILL OPERATOR 03/02/2011 Office visit Chadd Norris DO [...]
--- OUTSIDE RECORDS SUMMARY | 2018-05-09 15:14 | XMS REPORT ---
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 [employer]ila Lancets 33 gauge miscellaneous [facility] [place] 01/21/2016 use as directed cetirizine 10 mg [...] TAKE 1 TABLET BY MOUTH EVERY DAY montelukast 10 mg oral tablet 01/03/2017 TAKE 1 TABLET BY MOUTH EVERY EVENING FOR 30 DAYS Savella 50 mg oral tablet 01/03/2017 TAKE 1 TABLET BY MOUTH TWICE DAILY metoprolol succinate 100 mg oral tablet extended release 24 hr 02/10/2017 TAKE 1 TABLET BY MOUTH EVERY DAY gentamicin 0.3 % ophthalmic (eye) drops 02/25/2017 instill 1 drop into both eyes by ophthalmic route every 4 hours for 7 days nortriptyline 10 mg oral capsule 02/28/2017 TAKE 1 CAPSULE BY ORAL ROUTE ONCE A DAY (AT BEDTIME) FOR 30 DAYS Myrbetriq 25 mg oral tablet extended release 24 hr 04/20/2017 TAKE 1 TABLET (25 MG) BY ORAL ROUTE ONCE DAILY SWALLOWING WHOLE WITH WATER. DO NOT CRUSH, CHEW AND/OR DIVIDE. FOR 30 DAYS bumetanide 1 mg oral tablet 04/20/2017 take 1 tablet (1 mg) by oral route once daily for 7 days Macrobid 100 mg oral capsule 06/24/2017 take 1 capsule (100 mg) by oral route every 12 hours with food for 7 days triamcinolone acetonide 0.5 % topical ointment 06/28/2017 apply a thin layer to the affected area(s) by topical route 3 times per day for 90 days Name Start Date Expiration Date SIG [...] 08/27/2014 use as directed for 99 days Amasa 5-325 mg oral tablet 06/17/2014 06/27/2014 take [...] a day as needed for 30 days ejtxhuet-qlkpncisy-MC 3.5-10,000-1 mg/mL-unit/mL-% otic drops,suspension 201401/08/2015 instill 4 [...] oral route once daily for 4 days montelukast 10 mg oral tablet 07/01/2016 12/28/2016 TAKE 1 TABLET BY MOUTH EVERY EVENING for 30 days hydrocortisone-acetic acid 1-2 % otic drops 07/07/2016 07/17/2016 instill 2 drops into right ear by otic route 3 times per day. Ok for similiar substitution or individual components. jpixmxiz-bjggzfrwr-BU 3.5-10,000-1 mg/mL-unit/mL-% otic drops,suspension 201607/23/2016 instill 4 [...] mg (42) oral tablets,dose pack 201605/30/2017 DIRECTED Discontinued Name Start Date Discontinued Date SIG [...] 10/18/2014 take 4 tablets by oral route Odoley's Yeast 500 mg (7.5 gr) oral tablet [...] HC BMI BSA BMI Percentile O2 Sat(%) 06/28/2017 10:42:00 AM 123 mmHg 85 mmHg 92 bpm 98.2 F 159 lbs 63 in 28.17 kg/m2 1.79 m2 06/24/2017 10:30:00 AM 124 mmHg 84 mmHg 100 bpm 18 rpm 96.5 F 163.25 lbs 63 in 28.9181 kg/m 1.8142 m 100 % 06/02/2017 4:02:00 PM 132 mmHg 82 mmHg 93 bpm 16 rpm 98.2 F 164 lbs 63 in 29.05 kg/m2 1.82 m2 100 % 04/20/2017 2:09:00 PM 118 mmHg 78 mmHg 94 bpm 18 rpm 98.5 F 164.25 lbs 63 in 29.0953 kg/m 1.8198 m 98 % 03/22/2017 10:12:00 AM 110 mmHg 78 mmHg 106 bpm 16 rpm 98.4 F 162.5 lbs 63 in 28.79 kg/m2 1.81 m2 96 % 03/05/2017 9:12:00 AM 132 mmHg 64 mmHg 91 bpm 18 rpm 96.9 F 159.375 lbs 63 in 28.2317 kg/m 1.7926 m 100 % 02/23/2017 5:33:00 PM 128 mmHg 73 mmHg 89 bpm 18 rpm 98.6 F 164 lbs 63 in 29.05 kg/m2 1.82 m2 99 % 02/21/2017 3:21:00 PM 126 mmHg 74 mmHg 85 bpm 16 rpm 98.3 F 160.375 lbs 63 in 28.4089 kg/m 1.7982 m 99 % 02/15/2017 2:03:00 PM 128 mmHg [...] rpm 99.3 F 151.25 lbs 63 in 26.79 kg/m2 1.75 m2 99 % 11/23/2016 10:04:00 AM 118 mmHg [...] rpm 96.8 F 160 lbs 63 in 28.34 kg/m2 1.80 m2 96 % 05/08/2015 4:11:00 PM 118 mmHg 74 mmHg 83 bpm 98.6 F 160.375 lbs 63 in 28.4089 kg/m 1.7982 m 96 % 05/06/2015 11:20:00 AM 124 mmHg 72 mmHg 72 bpm 18 rpm 96.9 F 161.5 lbs 63 in 28.61 kg/m2 1.80 m2 98 % 04/29/2015 3:07:00 PM 126 mmHg 72 mmHg 90 bpm 18 rpm 97.6 F 161.125 lbs 63 in 28.5417 kg/m 1.8024 m 97 % 03/27/2015 1:22:00 PM 106 mmHg 68 mmHg 110 bpm 97.4 F 164 lbs 63 in 29.05 kg/m2 1.82 m2 97 % 03/21/2015 11:11:00 AM 110 mmHg 64 mmHg 94 bpm 98.6 F 162.125 lbs 63 in 28.7189 kg/m 1.808 m 98 % 03/12/2015 11:37:00 AM 126 mmHg 64 mmHg 81 bpm 18 rpm 97.7 F 158 lbs 63 in 27.99 kg/m2 1.78 m2 99 % 02/26/2015 11:23:00 AM 114 mmHg 80 mmHg 97 bpm 20 rpm 98.2 F 160 lbs 96 % 02/13/2015 3:33:00 PM 120 mmHg 72 mmHg 91 bpm 98.7 F 159.125 lbs 63 in 28.19 kg/m2 1.79 m2 97 % 01/15/2015 10:55:00 AM 86 bpm [...] Reviewed 04/28/2011 12:00 AM Decadron 1 mg [facility]#[id number] (Jr) Reviewed 04/28/2011 12:00 AM Depo-Medrol 80 mg [facility]#[id number]-Naovzrfm Reviewed 09/02/2015 12:00 AM Toradol 60 Mg ND#2269-1207-48 Reviewed 09/02/2015 12:00 AM Phenergan, Up to 50 Mg RHC Medicaid Reviewed 09/16/2015 12:00 AM Toradol 60 Mg ND#9511-2554-63 Reviewed 09/16/2015 12:00 AM Phenergan Up to 50 mg RHC Medicare Reviewed 05/11/2011 12:00 AM N BLOCK INJ OCCIPITAL Reviewed 05/11/2011 12:00 AM Kenalog Nf-[address]-20 ANNA Reviewed 11/13/2015 12:00 AM ASSAY OF [...] INJ SC/IM Reviewed 07/08/2011 12:00 AM Toradol,15mg [facility]#[id number], [place] Reviewed 07/08/2011 12:00 AM Phenergan 50 Mg Im [facility] 5624-0158-49 ALLIE [place] Reviewed 01/21/2016 12:00 AM ECG MONIT/REPRT UP TO 48 HRS Returned 08/02/2011 12:00 AM THER/PROPH/DIAG INJ SC/IM Reviewed 08/02/2011 12:00 AM Decadron 1 mg [facility]#[id number] (Jr) Reviewed 08/02/2011 12:00 AM Depo-Medrol 80 mg [facility]#[id number]-Jqqhaunz Reviewed 03/05/2016 12:00 AM COMPLETE CBC W/AUTO [...] Reviewed 09/27/2011 12:00 AM Depo-Medrol 80 mg [facility]#[id number]-Jcsgmbcb Reviewed 09/27/2011 12:00 AM Depo-Medrol 40 mg [facility]#[id number] Reviewed 07/06/2016 12:00 AM CHEST X-RAY 4/> [...] Reviewed 12/23/2011 12:00 AM Decadron 1 mg [facility]#[id number] (Jr) Reviewed 12/23/2011 12:00 AM Depo-Medrol 80 mg [facility]#[id number]-Mkpgeren Reviewed 11/02/2016 11:45 AM URINALYSIS AUTO W/O [...] Reviewed 02/09/2012 12:00 AM Decadron 1 mg [facility]#[id number] (Jr) Reviewed 02/09/2012 12:00 AM Depo-Medrol 80 mg [facility]#[id number]-Crbfcfry Reviewed 02/21/2017 12:00 AM CULTURE OTHR SPECIMN AEROBIC Returned 02/21/2017 12:00 AM INFLUENZA ASSAY W/OPTIC Returned 02/23/2017 12:00 AM COMPLETE CBC W/AUTO DIFF WBC Reviewed 02/23/2017 12:00 AM X-RAY EXAM OF KNEE 3 Returned 03/15/2012 12:00 AM N BLOCK INJ OCCIPITAL Reviewed 03/15/2012 12:00 AM Kenalog Nt-[address]-20 ANNA Reviewed 04/11/2012 12:00 AM COMPLETE CBC [...] 12:00 AM ANTIBODY DETECTION NOS IF Returned 06/02/2017 12:00 AM EXTRACRANIAL BILAT STUDY Returned 06/28/2017 12:00 AM MAMMOGRAM BOTH BREASTS Reviewed 06/24/2017 12:00 AM COMPLETE CBC W/AUTO DIFF WBC Returned 06/24/2017 12:00 AM COMPREHEN METABOLIC PANEL Returned 06/24/2017 12:00 AM URNLS DIP STICK/TABLET RGNT AUTO W/O MICROSCOPY Returned 06/24/2017 12:00 AM RBC SED RATE AUTOMATED Returned 06/20/2012 12:00 AM THER/PROPH/DIAG INJ SC/IM Reviewed 06/20/2012 12:00 AM Decadron, Per 1 Mg [facility]# [address]-34 Reviewed 06/20/2012 12:00 AM Depo-Medrol, Per 80 Mg [facility]#0507-7160-52 Reviewed 09/06/2012 12:00 AM N BLOCK INJ OCCIPITAL Reviewed 09/06/2012 12:00 AM Kenalog Dw-[address]-20 ANNA Reviewed 09/06/2012 12:00 AM X-RAY EXAM RIBS UNI 2 VIEWS Reviewed 09/26/2012 12:00 AM THER/PROPH/DIAG INJ SC/IM Reviewed 09/26/2012 12:00 AM Decadron, Per 1 Mg [facility]# [address]-97 Reviewed 09/26/2012 12:00 AM Depo-Medrol, Per 80 Mg [facility]#4224-1152-63 Reviewed 10/03/2012 12:00 AM URINALYSIS AUTO W/O SCOPE Reviewed 10/03/2012 12:00 AM THER/PROPH/DIAG INJ SC/IM Reviewed 10/03/2012 12:00 AM Toradol 60 Mg ND#6956-4987-91 Reviewed 10/03/2012 12:00 AM Phenergan, 25Mg [facility]#0041-8854-93 Reviewed 10/19/2012 12:00 AM N BLOCK INJ OCCIPITAL Reviewed 10/19/2012 12:00 AM Kenalog, Per 10 Mg [facility]#8024-9907-97 Reviewed 10/19/2012 12:00 AM Toradol 30 Mg [facility]#9239-6062-76 Reviewed 10/19/2012 12:00 AM THER/PROPH/DIAG INJ SC/IM Reviewed 10/31/2012 12:00 AM COMPLETE CBC W/AUTO DIFF WBC Reviewed 10/31/2012 12:00 AM COMPREHEN METABOLIC PANEL Reviewed 10/31/2012 12:00 AM LIPID PANEL Reviewed 10/31/2012 12:00 AM ELECTROCARDIOGRAM COMPLETE Reviewed 11/03/2012 12:[address] THORAX W/O & W/DYE Reviewed 11/08/2012 12:00 AM N BLOCK INJ OCCIPITAL Reviewed 11/08/2012 12:00 AM Kenalog Jp-[address]-20 ANNA Reviewed 11/27/2012 12:00 AM COMPLETE CBC [...] 01/25/2013 12:00 AM Decadron, Per 1 Mg [facility]# [address]-02 Reviewed 01/25/2013 12:00 AM Depo-Medrol, Per 80 Mg [facility]#5107-4485-49 Reviewed 01/26/2013 12:00 AM IMMUNOTHERAPY ONE INJECTION [...] 05/16/2013 12:00 AM Decadron, Per 1 Mg [facility]# [address]-24 Reviewed 05/16/2013 12:00 AM Depo-Medrol, Per 80 Mg [facility]#3525-8383-84 Reviewed 05/31/2013 12:00 AM IMMUNOTHERAPY INJECTIONS Reviewed 06/08/2013 12:00 AM IMMUNOTHERAPY INJECTIONS Reviewed 06/14/2013 12:00 AM IMMUNOTHERAPY INJECTIONS Reviewed 06/28/2013 12:00 AM IMMUNOTHERAPY INJECTIONS Reviewed 07/12/2013 12:00 AM X-RAY EXAM RIBS UNI 2 VIEWS Reviewed 07/18/2013 12:00 AM Toradol 60 Mg [facility]#0962-4126-45 Reviewed 07/18/2013 12:00 AM THER/PROPH/DIAG INJ SC/IM Reviewed 08/23/2013 12:00 AM COMPLETE CBC W/AUTO DIFF WBC Reviewed 08/23/2013 12:00 AM COMPREHEN METABOLIC PANEL Reviewed 08/23/2013 12:00 AM LIPID PANEL Reviewed 08/31/2013 12:00 AM X-RAY EXAM OF LOWER LEG Reviewed 09/04/2013 12:00 AM IMMUNOTHERAPY INJECTIONS Reviewed 09/14/2013 12:00 AM THER/PROPH/DIAG INJ SC/IM Reviewed 09/14/2013 12:00 AM Decadron, Per 1 Mg [facility]# [address]-36 Reviewed 09/14/2013 12:00 AM Depo-Medrol, Per 80 Mg [facility]#0691-6034-13 Reviewed 09/20/2013 12:00 AM IMMUNOTHERAPY INJECTIONS Reviewed [...] INJ OCCIPITAL Reviewed 12/10/2009 12:00 AM Kenalog Qn-[address]-20 ANNA Reviewed 12/16/2009 12:00 AM HIV-1ANTIBODY Reviewed 12/16/2009 12:00 AM COMPLETE CBC W/AUTO DIFF WBC Reviewed 12/16/2009 12:00 AM METABOLIC PANEL TOTAL CA Reviewed 12/16/2009 12:00 AM Type and screen Reviewed 12/16/2009 12:00 AM PROTHROMBIN TIME Reviewed 12/16/2009 12:00 AM THROMBOPLASTIN TIME PARTIAL Reviewed 03/18/2010 12:00 AM DRAIN/INJ JOINT/BURSA W/O US Reviewed 03/18/2010 12:00 AM Kenalog Jw-[address]-20 ANNA Reviewed 11/21/2013 12:00 AM RADEX HAND MINIMUM 3 VIEWS Reviewed 06/03/2010 12:00 AM INJ TRIGGER POINT 1/2 MUSCL Reviewed 06/03/2010 12:00 AM Kenalog per 10Mg [facility]#[address]-65(Niall) Reviewed 12/05/2013 12:00 AM COMPLETE CBC W/AUTO [...] Reviewed 07/23/2010 12:00 AM INJ TRIGGER POINT 12 MUSCL Reviewed 07/23/2010 12:00 AM Kenalog per 10Mg [facility]#[address]-38(Niall) Reviewed 2014 12:00 AM COMPLETE CBC W/AUTO [...] INJ OCCIPITAL Reviewed 10/01/2010 12:00 AM Kenalog Ak-[address]-20 ANNA Reviewed 07/25/2014 12:00 AM THER/PROPH/DIAG INJ [...] Quant,IgM <0.80 RMSF , IgG, EIA Negative [facility] Spotted Fever,IgM 0.51 E. chaffeensis [...] 3 EOS 1.0 %BASO 1.0 %METAS 4 History Of Immunizations Name Date Admin Mfg Name Mfg Code Trade Name Lot# Route Inj Vis Given Vis Pub CVX Influenza 03/30/2011 Not Entered NE Not Entered Not Entered Not Entered 03/31/2011 05/30/2017 141 Influenza 04/24/2014 sanofi pasteur PMC Fluzone [id number] Intramuscular Left Upper Arm 02/27/2014 01/15/2014 141 Influenza 02/13/2015 sanofi pasteur PMC Fluzone [id number] Intramuscular Left Deltoid 02/13/2015 01/03/2015 140 Tdap 06/06/2015 GlaxoSmithKline SKB BOOSTRIX [id number] Intramuscular Left Deltoid 06/06/2015 07/23/2014 115 Influenza 03/18/2016 sanofi pasteur PMC Fluzone [id number] Intramuscular Left Deltoid 03/17/2016 01/03/2015 141 History [...] unspecified allergic rhinitis type 06/09/2015 Myofascial pain Feb 2010 10:30AM Spinal enthesopathy Jul 23 2010 [...] Abdominal Pain Jun 15 2011 1:50PM Lumbago Jun 6 2011 1:58PM Muscle Spasm Feb 6 2011 1:58PM Headache Feb 9 2011 1:38PM Heart Sound Abnormality Feb 9 2011 1:38PM Upper Respiratory Infections Aug [...] 27 2014 6:10PM Ankle pain, left Feb 2 2014 3:51PM Tendon dysfunction Feb 2 2014 3:51PM Osteoporosis Feb 2 2014 3:51PM Elevated liver enzymes Jul 01 [...] Jul 09 2016 3:50PM Cervical spinal stenosis b 2016 3:50PM Lumbago b 2016 3:25PM Stenosis, cervical spine Jul 09 [...] mellitus with hyperglycemia Jun 24 2017 10:33AM 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 Jun 24 2017 [...] 10:51AM Lichen sclerosus Jun 28 2017 10:51AM Payers Insurance Name Company Name Plan Name Plan Number Policy Number Policy Group Number Start Date Medicare RHC Medicare RHC [id number] N/A [facility] - RHC - [facility] RHC Comm [id number] N/A Medicare Part A Medicare - Lab/Xray [id number] N/A Medicare Part B Medicare Of [place] [id number] Monday, February 28, 2000 [place] [employer] [place] [id number] Tuesday, November 10, 2009 Medicare Part A Medicare Part A [id number] N/A [place] [employer] - R[place] [employer] - RHC [id number] May [facility] Plan [facility] Comm Plan of [id number] Wednesday, May 30, 2012 History of Encounters Visit Date Visit Type Provider 06/28/2017 Office visit 06/28/2017 Office visit Lena El MAINTENANCE SUPERVISOR MECHANICAL 06/24/2017 Office visit Sundeep Russell MAINTENANCE SUPERVISOR MECHANICAL 06/02/2017 Office visit Heena Dumont MD 04/20/2017 Office visit 04/20/2017 Office visit 04/20/2017 Office visit 04/20/2017 Office visit Heena Dumont MD 03/22/2017 Office visit Heena Dumont MD 03/05/2017 Office visit Lena Chaves MAINTENANCE SUPERVISOR MECHANICAL 02/23/2017 Office visit Symone Marie MAINTENANCE SUPERVISOR MECHANICAL 02/21/2017 Office visit Heena Dumont MD 02/15/2017 Office visit Heena Dumont MD 02/02/2017 Office visit Heena Dumont MD 01/07/2017 Office visit Riccardo Cardoza MD 01/03/2017 Office visit Heena Dumont MD 12/15/2016 Office visit Kaylynn Mendez MAINTENANCE SUPERVISOR MECHANICAL 12/02/2016 Office visit Heena Dumont MD 11/23/2016 [facility] John Hoskins MD 11/23/2016 Office visit Kaylynn Mendez MAINTENANCE SUPERVISOR MECHANICAL 11/17/2016 Office visit Kaylynn Mendez MAINTENANCE SUPERVISOR MECHANICAL 11/05/2016 Office visit Riccardo Cardoza MD 11/02/2016 Office visit Heena Dumont MD 10/06/2016 Office visit Kaylynn Mendez MAINTENANCE SUPERVISOR MECHANICAL 09/22/2016 Office visit Heena Dumont MD 09/09/2016 Office visit Kaylynn Mendez MAINTENANCE SUPERVISOR MECHANICAL 08/27/2016 Office visit Riccardo Cardoza MD 08/26/2016 Office visit Heena Dumont MD 07/09/2016 Office visit Riccardo Cardoza MD 07/06/2016 Office visit Heena Dumont MD 06/18/2016 Office visit Kaylynn Mendez MAINTENANCE SUPERVISOR MECHANICAL 06/07/2016 Office visit Sundeep Russell MAINTENANCE SUPERVISOR MECHANICAL 06/04/2016 Office visit Heena Dumont MD 05/13/2016 Office visit Heena Dumont MD 05/03/2016 Office visit Heena Dumont MD 04/26/2016 Office visit Kaylynn Mendez MAINTENANCE SUPERVISOR MECHANICAL 04/14/2016 Office visit Heena Dumont MD 04/13/2016 Office visit Kaylynn Mendez MAINTENANCE SUPERVISOR MECHANICAL 04/02/2016 Office visit Lena El MAINTENANCE SUPERVISOR MECHANICAL 04/02/2016 Office visit Heena Dumont MD 03/26/2016 Office visit Yesica Falcon MAINTENANCE SUPERVISOR MECHANICAL 03/17/2016 Office visit Heena Dumont MD 03/05/2016 Office visit Kaylynn Mendez MAINTENANCE SUPERVISOR MECHANICAL 02/16/2016 Office visit Heena Dumont MD 02/14/2016 Office visit Na Jones MAINTENANCE SUPERVISOR MECHANICAL 01/16/2016 Office visit Heena Dumont MD 12/16/2015 Office visit Heena Dumont MD 11/24/2015 Office visit Kaylynn Mendez MAINTENANCE SUPERVISOR MECHANICAL 11/18/2015 Office visit Heena Dumont MD 11/03/2015 Office visit Sundeep Russell MAINTENANCE SUPERVISOR MECHANICAL 10/20/2015 Office visit Kaylynn Mendez MAINTENANCE SUPERVISOR MECHANICAL 09/23/2015 Office visit Kaylynn Mendez MAINTENANCE SUPERVISOR MECHANICAL 09/16/[address] Pepe Figueroa MD 09/02/2015 Office visit Kaylynn Mendez MAINTENANCE SUPERVISOR MECHANICAL 09/01/2015 Office visit Kaylynn Mendez MAINTENANCE SUPERVISOR MECHANICAL 07/30/2015 Office visit Heena Dumont MD 07/15/2015 Office visit Kaylynn Mendez MAINTENANCE SUPERVISOR MECHANICAL 07/04/2015 Office visit Heena Dumont MD 06/06/2015 Office visit Heena Dumont MD 06/06/2015 Office visit Kaylynn Mendez MAINTENANCE SUPERVISOR MECHANICAL 06/02/2015 Office visit Kaylynn Walker MAINTENANCE SUPERVISOR MECHANICAL 05/26/2015 Office visit Kaylynn Walker MAINTENANCE SUPERVISOR MECHANICAL 05/20/2015 Office visit Kaylynn Walker MAINTENANCE SUPERVISOR MECHANICAL 05/08/2015 Office visit Heena Dumont MD 05/06/2015 Office visit Kaylynn Mendez MAINTENANCE SUPERVISOR MECHANICAL 04/29/2015 Office visit Kaylynn Walker MAINTENANCE SUPERVISOR MECHANICAL 03/27/2015 Voided Brittni Yanez MAINTENANCE SUPERVISOR MECHANICAL 03/21/2015 Office visit Heena Dumont MD 03/12/2015 Office visit Kaylynn Mendez MAINTENANCE SUPERVISOR MECHANICAL 02/26/2015 Office visit Brittni Yanez MAINTENANCE SUPERVISOR MECHANICAL 02/13/2015 Office visit Heena Dumont MD 01/15/2015 Office visit Brittni Yanez MAINTENANCE SUPERVISOR MECHANICAL 01/13/2015 Office visit Heena Dumont MD 01/08/[address] Carol Fowler MD 01/01/2015 Office visit Brittni Yanez MAINTENANCE SUPERVISOR MECHANICAL 12/13/2014 Office visit Heena Dumont MD 11/27/2014 Office visit Kaylynn Mendez MAINTENANCE SUPERVISOR MECHANICAL 11/14/2014 Office visit Heena Dumont MD 10/18/2014 Office visit Heena Dumont MD 10/17/2014 [facility] John Hoskins MD 10/09/2014 Office visit Heena Dumont MD 09/25/2014 Office visit Heena Dumont MD 09/17/2014 Office visit Kaylynn Mendez MAINTENANCE SUPERVISOR MECHANICAL 09/04/2014 Office visit Heena Dumont MD 08/28/2014 Office visit Kaylynn Mendez MAINTENANCE SUPERVISOR MECHANICAL 08/23/2014 [facility] Eliseo Hoskins MD 08/01/2014 Office visit Kaylynn Mendez MAINTENANCE SUPERVISOR MECHANICAL 07/29/2014 Office visit Heena Dumont MD 07/25/2014 Nurse visit Heena Dumont MD 07/17/2014 Office visit Kaylynn Mendez MAINTENANCE SUPERVISOR MECHANICAL 07/11/2014 Office visit Heena Dumont MD 07/01/2014 Office visit Heena Dumont MD 06/25/2014 Office visit Kaylynn Mendez MAINTENANCE SUPERVISOR MECHANICAL 06/12/2014 Office visit Kaylynn Mendez MAINTENANCE SUPERVISOR MECHANICAL 06/06/2014 Office visit Kaylynn Mendez MAINTENANCE SUPERVISOR MECHANICAL 05/27/2014 Office visit Heena Dumnot MD 04/20/2014 Office visit Yesica Falcon MAINTENANCE SUPERVISOR MECHANICAL 03/29/2014 Office visit Na Jones MAINTENANCE SUPERVISOR MECHANICAL 03/15/2014 Office visit Heena Dumont MD 2014 Office visit Heena Dumont MD 2014 [facility] oJhn Hoskins MD 02/27/2014 Nurse visit Heena Dumont MD 02/13/2014 Office visit Lena El MAINTENANCE SUPERVISOR MECHANICAL 02/07/2014 Office visit Heena Dumont MD 02/03/2014 Office visit Na Jones MAINTENANCE SUPERVISOR MECHANICAL 01/30/2014 Office visit Kaylynn Mendez MAINTENANCE SUPERVISOR MECHANICAL 01/24/2014 Office visit Sundeep Russell MAINTENANCE SUPERVISOR MECHANICAL 01/16/2014 Office visit Kaylynn Mendez MAINTENANCE SUPERVISOR MECHANICAL 01/10/2014 Nurse visit Kaylynn Mendez MAINTENANCE SUPERVISOR MECHANICAL 01/08/2014 Office visit Kaylynn Mendez MAINTENANCE SUPERVISOR MECHANICAL 12/05/2013 Office visit Kaylynn Walker MAINTENANCE SUPERVISOR MECHANICAL 11/21/2013 Office visit Kaylynn Walker MAINTENANCE SUPERVISOR MECHANICAL 10/23/2013 Office visit Brittni Yanez MAINTENANCE SUPERVISOR MECHANICAL 10/17/2013 Nurse visit Heena Dumont MD 10/12/2013 Office visit Kaylynn Walker MAINTENANCE SUPERVISOR MECHANICAL 10/02/2013 Office visit Heena Dumont MD 09/20/2013 Nurse visit Kaylynn Walker MAINTENANCE SUPERVISOR MECHANICAL 09/20/2013 Voided Heena Dumont MD 09/14/2013 Office visit Kaylynn Walker MAINTENANCE SUPERVISOR MECHANICAL 09/05/2013 Office visit Sundeep Russell MAINTENANCE SUPERVISOR MECHANICAL 09/04/2013 Nurse visit Kaylynn Walker MAINTENANCE SUPERVISOR MECHANICAL 08/31/2013 Office visit Kaylynn Walker MAINTENANCE SUPERVISOR MECHANICAL 08/23/2013 Office visit Heena Dumont MD 08/10/2013 Office visit Kaylynn Walker MAINTENANCE SUPERVISOR MECHANICAL 07/25/2013 Office visit Kaylynn Walker MAINTENANCE SUPERVISOR MECHANICAL 07/18/2013 Office visit Kaylynn Walker MAINTENANCE SUPERVISOR MECHANICAL 07/12/2013 Office visit Kaylynn Walker MAINTENANCE SUPERVISOR MECHANICAL 06/28/2013 Nurse visit Kaylynn Walker MAINTENANCE SUPERVISOR MECHANICAL 06/14/2013 Nurse visit Kaylynn Walker MAINTENANCE SUPERVISOR MECHANICAL 06/08/2013 Nurse visit Kaylynn Mendez MAINTENANCE SUPERVISOR MECHANICAL 05/31/2013 Nurse visit Chadd Norris DO 05/18/2013 Office visit Terese Davidson MD 05/16/2013 Office visit Kaylynn Mendez MAINTENANCE SUPERVISOR MECHANICAL 05/09/2013 Office visit Kaylynn Mendez MAINTENANCE SUPERVISOR MECHANICAL 04/29/2013 [facility] John Hoskins MD 04/25/2013 Nurse visit Kaylynn Mendez MAINTENANCE SUPERVISOR MECHANICAL 04/17/2013 Office visit Kaylynn Mendez MAINTENANCE SUPERVISOR MECHANICAL 04/03/2013 Nurse visit Kaylynn Mendez MAINTENANCE SUPERVISOR MECHANICAL 04/03/2013 Office visit Terese Davidson MD 03/28/2013 Office visit Sundeep Russell MAINTENANCE SUPERVISOR MECHANICAL 03/21/2013 Office visit Kaylynn Mendez MAINTENANCE SUPERVISOR MECHANICAL 03/20/2013 Office visit Terese Davidson MD 03/14/2013 Nurse visit Kaylynn Mendez MAINTENANCE SUPERVISOR MECHANICAL 03/05/2013 Nurse visit Kaylynn Mendez MAINTENANCE SUPERVISOR MECHANICAL 02/19/2013 Office visit Terese Davidson MD 02/16/2013 Nurse visit Kaylynn Mendez MAINTENANCE SUPERVISOR MECHANICAL 02/09/2013 Office visit Sundeep Russell MAINTENANCE SUPERVISOR MECHANICAL 02/08/2013 Nurse visit Kaylynn Walker MAINTENANCE SUPERVISOR MECHANICAL 02/01/2013 Nurse visit Kaylynn Walker MAINTENANCE SUPERVISOR MECHANICAL 01/26/2013 Nurse visit Sabrina Mendez TIRE BUILDER 01/25/2013 Office visit Kaylynn Mendez MAINTENANCE SUPERVISOR MECHANICAL 01/22/2013 Office visit Yoan Castaneda MD 01/18/2013 Nurse visit Kaylynn Mendez MAINTENANCE SUPERVISOR MECHANICAL 01/11/2013 Nurse visit Kaylynn Walker MAINTENANCE SUPERVISOR MECHANICAL 01/05/2013 Nurse visit Kaylynn Walker MAINTENANCE SUPERVISOR MECHANICAL 12/29/2012 Office visit Kaylynn Walker MAINTENANCE SUPERVISOR MECHANICAL 11/27/2012 Office visit Kaylynn Walker MAINTENANCE SUPERVISOR MECHANICAL 11/08/2012 Office visit Odell Tierney MD 11/08/2012 Voided Odell Tierney MD 11/07/2012 Office visit Kaylynn Walker MAINTENANCE SUPERVISOR MECHANICAL 10/31/2012 [facility] John Hoskins MD 10/31/2012 Office visit Kaylynn Walker MAINTENANCE SUPERVISOR MECHANICAL 10/19/2012 Office visit Genoveva Ayala MAINTENANCE SUPERVISOR MECHANICAL 10/10/2012 Office visit Kaylynn Walker MAINTENANCE SUPERVISOR MECHANICAL 10/03/2012 Office visit Kaylynn Walker MAINTENANCE SUPERVISOR MECHANICAL 09/26/2012 Office visit Kaylynn Walker MAINTENANCE SUPERVISOR MECHANICAL 09/06/2012 Office visit Kaylynn Walker MAINTENANCE SUPERVISOR MECHANICAL 09/06/2012 Office visit Odell Tierney MD 08/31/2012 Voided Kaylynn Mendez MAINTENANCE SUPERVISOR MECHANICAL 07/28/2012 Office visit Kaylynn Walker MAINTENANCE SUPERVISOR MECHANICAL 07/27/2012 Office visit David Joyner DO 07/20/2012 [facility] David Ar DO 07/13/2012 [facility] 07/11/2012 Office visit Kaylynn Mendez MAINTENANCE SUPERVISOR MECHANICAL 06/27/2012 [facility] Odell Tierney MD 06/21/2012 Office visit David Joyner DO 06/21/2012 Office visit Odell Tierney MD 06/20/2012 Office visit Brittni Yanez MAINTENANCE SUPERVISOR MECHANICAL 06/06/2012 Office visit Odell Tierney MD 05/03/2012 Office visit Kaylynn Mendez MAINTENANCE SUPERVISOR MECHANICAL 04/28/2012 Office visit Brittni Yanez MAINTENANCE SUPERVISOR MECHANICAL 04/11/2012 Office visit Kaylynn Mendez MAINTENANCE SUPERVISOR MECHANICAL 04/06/2012 [facility] John Hoskins MD 03/30/2012 Office visit Kaylynn Walker MAINTENANCE SUPERVISOR MECHANICAL 03/15/2012 Office visit Kaylynn Mendez MAINTENANCE SUPERVISOR MECHANICAL 03/15/2012 Office visit Odell Tierney MD 02/09/2012 Office visit Kaylynn Mendez MAINTENANCE SUPERVISOR MECHANICAL 12/23/2011 Office visit Kaylynn Walker MAINTENANCE SUPERVISOR MECHANICAL 11/02/2011 Office visit Kaylynn Walker MAINTENANCE SUPERVISOR MECHANICAL 10/14/2011 Office visit Kaylynn Walker MAINTENANCE SUPERVISOR MECHANICAL 09/27/2011 Office visit Kaylynn Walker MAINTENANCE SUPERVISOR MECHANICAL 08/19/2011 [facility] John Hoskins MD 08/18/2011 [facility] John Hoskins MD 08/18/2011 Office visit Kaylynn Walker 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
--- OUTSIDE RECORDS SUMMARY | 2018-05-09 15:19 | XMS REPORT ---
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 nhhjpedl-awnnzsnfl-MZ 3.5-10,000-1 mg/mL-unit/mL-% otic drops,suspension 201607/23/2016 instill 4 [...] (11)- 1 mg (42) oral tablets,dose pack 03/2204/21/2017 take as directed for 30 days Discontinued Name Start Date [...] A TIME THEN REASSESS SWELLING, USE PRN Problem List Description Status Onset Anemia Active [...] HC BMI BSA BMI Percentile O2 Sat(%) 04/20/2017 2:09:00 PM 118 mmHg 78 mmHg [...] rpm 98.3 F 154.375 lbs 63 in 27.35 kg/m2 1.76 m2 96 % 01/03/2017 2:07:00 PM 112 mmHg 72 mmHg 93 bpm 16 rpm 98.6 F 155 lbs 63 in 27.4567 kg/m 1.7678 m 97 % 12/15/2016 10:45:00 AM 126 mmHg [...] Reviewed 04/28/2011 12:00 AM Decadron 1 mg ND#[id number] (Jr) Reviewed 04/28/2011 12:00 AM Depo-Medrol 80 mg NDC#[id number]-Kussucbq Reviewed 09/02/2015 12:00 AM Toradol 60 Mg NDC#0014-5665-27 Reviewed 09/02/2015 12:00 AM Phenergan, Up to 50 Mg RHC Medicaid Reviewed 09/16/2015 12:00 AM Toradol 60 Mg NDC#2999-5529-46 Reviewed 09/16/2015 12:00 AM Phenergan Up to 50 mg RHC Medicare Reviewed 05/11/2011 12:00 AM N BLOCK INJ OCCIPITAL Reviewed 05/11/2011 12:00 AM Kenalog Yn-[address]-20 ANNA Reviewed 11/13/2015 12:00 AM ASSAY OF [...] INJ SC/IM Reviewed 07/08/2011 12:00 AM Toradol,15mg [facility]#[id number], [place] Reviewed 07/08/2011 12:00 AM Phenergan 50 Mg Im [facility] 9911-8232-29 [place] Reviewed 01/21/2016 12:00 AM ECG MONIT/REPRT UP TO 48 HRS Returned 08/02/2011 12:00 AM THER/PROPH/DIAG INJ SC/IM Reviewed 08/02/2011 12:00 AM Decadron 1 mg [facility] 2001#[id number] (Jr) Reviewed 08/02/2011 12:00 AM Depo-Medrol 80 mg [facility] 2001#[id number]-Gozcarzo Reviewed 03/05/2016 12:00 AM COMPLETE CBC W/AUTO DIFF WBC Reviewed 03/05/2016 12:00 AM STREP A ASSAY W/OPTIC Reviewed 03/05/2016 12:00 AM C-REACTIVE PROTEIN Reviewed 03/18/2016 12:00 AM [facility] MED[facility] - flu vaccine administration Reviewed [...] Reviewed 09/27/2011 12:00 AM Depo-Medrol 80 mg ND#[id number]-Jdnxmich Reviewed 09/27/2011 12:00 AM Depo-Medrol 40 mg ND#[id number] Reviewed 07/06/2016 12:00 AM CHEST X-RAY 4/> [...] Reviewed 12/23/2011 12:00 AM Decadron 1 mg [facility] 2001#[id number] (Rj) Reviewed 12/23/2011 12:00 AM Depo-Medrol 80 mg [facility] 2001#[id number]-Pcaoxlua Reviewed 11/02/2016 11:45 AM URINALYSIS AUTO W/O [...] Reviewed 02/09/2012 12:00 AM Decadron 1 mg ND#[id number] (Jr) Reviewed 02/09/2012 12:00 AM Depo-Medrol 80 mg NDC#[id number]-Zkdxzggd Reviewed 02/21/2017 12:00 AM CULTURE OTHR SPECIMN AEROBIC Returned 02/21/2017 12:00 AM INFLUENZA ASSAY W/OPTIC Returned 02/23/2017 12:00 AM COMPLETE CBC W/AUTO DIFF WBC Reviewed 02/23/2017 12:00 AM X-RAY EXAM OF KNEE 3 Returned 03/15/2012 12:00 AM N BLOCK INJ OCCIPITAL Reviewed 03/15/2012 12:00 AM Kenalog As-[address]-20 ANNA Reviewed 04/11/2012 12:00 AM COMPLETE CBC [...] 12:00 AM ANTIBODY DETECTION NOS IF Returned 06/20/2012 12:00 AM THER/PROPH/DIAG INJ SC/IM Reviewed 06/20/2012 12:00 AM Decadron, Per 1 Mg ND# [address]-55 Reviewed 06/20/2012 12:00 AM Depo-Medrol, Per 80 Mg ND#1864-5829-74 Reviewed 09/06/2012 12:00 AM N BLOCK INJ OCCIPITAL Reviewed 09/06/2012 12:00 AM Kenalog Jj-[address]-20 ANNA Reviewed 09/06/2012 12:00 AM X-RAY EXAM RIBS UNI 2 VIEWS Reviewed 09/26/2012 12:00 AM THER/PROPH/DIAG INJ SC/IM Reviewed 09/26/2012 12:00 AM Decadron, Per 1 Mg NDC# [address]-97 Reviewed 09/26/2012 12:00 AM Depo-Medrol, Per 80 Mg [facility] 2001#3688-7206-90 Reviewed 10/03/2012 12:00 AM URINALYSIS AUTO W/O SCOPE Reviewed 10/03/2012 12:00 AM THER/PROPH/DIAG INJ SC/IM Reviewed 10/03/2012 12:00 AM Toradol 60 Mg [facility] 2001#6136-7024-80 Reviewed 10/03/2012 12:00 AM Phenergan, 25Mg [facility] 2001#3121-6267-74 Reviewed 10/19/2012 12:00 AM N BLOCK INJ OCCIPITAL Reviewed 10/19/2012 12:00 AM Kenalog, Per 10 Mg [facility] 2001#0614-8056-11 Reviewed 10/19/2012 12:00 AM Toradol 30 Mg [facility] 2001#6547-1193-20 Reviewed 10/19/2012 12:00 AM THER/PROPH/DIAG INJ SC/IM Reviewed 10/31/2012 12:00 AM COMPLETE CBC W/AUTO DIFF WBC Reviewed 10/31/2012 12:00 AM COMPREHEN METABOLIC PANEL Reviewed 10/31/2012 12:00 AM LIPID PANEL Reviewed 10/31/2012 12:00 AM ELECTROCARDIOGRAM COMPLETE Reviewed 11/03/2012 12:[address] THORAX W/O & W/DYE Reviewed 11/08/2012 12:00 AM N BLOCK INJ OCCIPITAL Reviewed 11/08/2012 12:00 AM Kenalog Qi-[address]-20 ANNA Reviewed 11/27/2012 12:00 AM COMPLETE CBC [...] 01/25/2013 12:00 AM Decadron, Per 1 Mg [facility] 2001# [address]-23 Reviewed 01/25/2013 12:00 AM Depo-Medrol, Per 80 Mg [facility] 2001#9575-1715-50 Reviewed 01/26/2013 12:00 AM IMMUNOTHERAPY ONE INJECTION [...] 05/16/2013 12:00 AM Decadron, Per 1 Mg [facility] 2001# [address]-63 Reviewed 05/16/2013 12:00 AM Depo-Medrol, Per 80 Mg [facility] 2001#1237-7084-21 Reviewed 05/31/2013 12:00 AM IMMUNOTHERAPY INJECTIONS Reviewed 06/08/2013 12:00 AM IMMUNOTHERAPY INJECTIONS Reviewed 06/14/2013 12:00 AM IMMUNOTHERAPY INJECTIONS Reviewed 06/28/2013 12:00 AM IMMUNOTHERAPY INJECTIONS Reviewed 07/12/2013 12:00 AM X-RAY EXAM RIBS UNI 2 VIEWS Reviewed 07/18/2013 12:00 AM Toradol 60 Mg [facility] 2001#1683-9284-85 Reviewed 07/18/2013 12:00 AM THER/PROPH/DIAG INJ SC/IM Reviewed 08/23/2013 12:00 AM COMPLETE CBC W/AUTO DIFF WBC Reviewed 08/23/2013 12:00 AM COMPREHEN METABOLIC PANEL Reviewed 08/23/2013 12:00 AM LIPID PANEL Reviewed 08/31/2013 12:00 AM X-RAY EXAM OF LOWER LEG Reviewed 09/04/2013 12:00 AM IMMUNOTHERAPY INJECTIONS Reviewed 09/14/2013 12:00 AM THER/PROPH/DIAG INJ SC/IM Reviewed 09/14/2013 12:00 AM Decadron, Per 1 Mg [facility] 2001# [address]-47 Reviewed 09/14/2013 12:00 AM Depo-Medrol, Per 80 Mg [facility] 2001#7978-7467-46 Reviewed 09/20/2013 12:00 AM IMMUNOTHERAPY INJECTIONS Reviewed [...] INJ OCCIPITAL Reviewed 12/10/2009 12:00 AM Kenalog In-[address]-20 ANNA Reviewed 12/16/2009 12:00 AM HIV-1ANTIBODY Reviewed 12/16/2009 12:00 AM COMPLETE CBC W/AUTO DIFF WBC Reviewed 12/16/2009 12:00 AM METABOLIC PANEL TOTAL CA Reviewed 12/16/2009 12:00 AM Type and screen Reviewed 12/16/2009 12:00 AM PROTHROMBIN TIME Reviewed 12/16/2009 12:00 AM THROMBOPLASTIN TIME PARTIAL Reviewed 03/18/2010 12:00 AM DRAIN/INJ JOINT/BURSA W/O US Reviewed 03/18/2010 12:00 AM Kenalog Dl-[address]-20 ANNA Reviewed 11/21/2013 12:00 AM RADEX HAND MINIMUM 3 VIEWS Reviewed 06/03/2010 12:00 AM INJ TRIGGER POINT 1/2 MUSCL Reviewed 06/03/2010 12:00 AM Kenalog per 10Mg Im-[facility]#[address]-56(Niall) Reviewed 12/05/2013 12:00 AM COMPLETE CBC W/AUTO [...] Reviewed 07/23/2010 12:00 AM Kenalog per 10Mg Im-[facility]#[address]-30(Niall) Reviewed 2014 12:00 AM COMPLETE CBC W/AUTO [...] INJ OCCIPITAL Reviewed 10/01/2010 12:00 AM Kenalog Ur-[address]-20 ANNA Reviewed 07/25/2014 12:00 AM THER/PROPH/DIAG INJ [...] 4.68 HGB 14.30 g/dLHCT 41.30 %MCV 88.0 [facility] 30.60 pgHC 34.60 g/dLRDW SD 44 RDW [...] Quant,IgM <0.80 RMSF , IgG, EIA Negative [facility] Spotted Fever,IgM 0.51 E. [...] 141 Influenza 04/24/2014 sanofi pasteur PMC Fluzone [id number] Intramuscular Left Upper Arm 02/27/2014 01/15/2014 141 Influenza 02/13/2015 sanofi pasteur PMC Fluzone [id number] Intramuscular Left Deltoid 02/13/2015 01/03/2015 140 Tdap 06/06/2015 [place] [facility] [place] [facility] BOOSTRIX [id number] Intramuscular Left Deltoid 06/06/2015 07/23/2014 115 Influenza 03/18/2016 sanofi pasteur PMC Fluzone [id number] Intramuscular Left Deltoid 03/17/2016 01/03/2015 141 History [...] Lumbago Jul 05 2011 1:58PM Muscle Spasm Feb 2011 1:58PM Headache Feb 9 2011 1:38PM [...] pain, left b 2014 3:51PM Tendon dysfunction b 2014 3:51PM [...] extremity Jun 04 2016 11:05AM Recurrent pneumonia b 2016 10:48AM Cough b 2016 10:48AM Otitis externa Feb 7 2016 10:48AM Bulging of cervical intervertebral disc Feb 2016 3:50PM Cervical spinal stenosis Feb 10 2016 3:50PM Lumbago Feb 10 2016 3:25PM Stenosis, cervical spine Feb 10 2016 3:25PM Disc disorder of cervical region Feb 10 2016 3:25PM Cervicalgia Feb 10 2016 3:25PM Osteoporosis Jul 16 2016 [...] 2:12PM Nicotine Addiction Mar 22 2017 10:15AM Payers Insurance Name Company Name Plan Name Plan Number Policy Number Policy Group Number Start Date Medicare RHC Medicare RHC [id number] N/A [employer] - RHC - Community Plan of [facility] RHC Comm [id number] N/A Medicare Part A Medicare - Lab/Xray [id number] N/A Medicare Part B Medicare Of [place] [id number] Monday, February 28, 2000 [place] [employer] [place] [id number] Tuesday, November 10, 2009 Medicare Part A Medicare Part A [id number] N/A [place] [employer] - [place]HC [place] [employer] - RHC [id number] May [facility] Comm Plan of [id number] Wednesday, May 30, 2012 History of Encounters Visit Date Visit Type Provider 04/20/2017 Office visit 04/20/2017 Office visit 04/20/2017 Office visit 04/20/2017 Office visit Heena Dumont MD 03/22/2017 Office visit Heena Dumont MD 03/05/2017 Office visit Lena Chaves COMMUNICATIONS MANAGER 02/23/2017 Office visit Symone Marie COMMUNICATIONS MANAGER 02/21/2017 Office visit Heena Dumont MD 02/15/2017 Office visit Heena Dumont MD 02/02/2017 Office visit Heena Dumont MD 01/07/2017 Office visit Riccardo Cardoza MD 01/03/2017 Office visit Heena Dumont MD 12/15/2016 Office visit Kaylynn Mendez COMMUNICATIONS MANAGER 12/02/2016 Office visit Heena Dumont MD 11/23/2016 [facility] John Hoskins MD 11/23/2016 Office visit Kaylynn Mendez COMMUNICATIONS MANAGER 11/17/2016 Office visit Kaylynn Mendez COMMUNICATIONS MANAGER 11/05/2016 Office visit Riccardo Cardoza MD 11/02/2016 Office visit Heena Dumont MD 10/06/2016 Office visit Kaylynn Mendez COMMUNICATIONS MANAGER 09/22/2016 Office visit Heena Dumont MD 09/09/2016 Office visit Kaylynn Mendez COMMUNICATIONS MANAGER 08/27/2016 Office visit Riccardo Cardoza MD 08/26/2016 Office visit Heena Dumont MD 07/09/2016 Office visit Riccardo Cardoza MD 07/06/2016 Office visit Heena Dumont MD 06/18/2016 Office visit Kaylynn Mendez COMMUNICATIONS MANAGER 06/07/2016 Office visit Sundeep Russell COMMUNICATIONS MANAGER 06/04/2016 Office visit Heena Dumont MD 05/13/2016 Office visit Heena Dumont MD 05/03/2016 Office visit Heena Dumont MD 04/26/2016 Office visit Kaylynn Mendez COMMUNICATIONS MANAGER 04/14/2016 Office visit Heena Dumont MD 04/13/2016 Office visit Kaylynn Mendez COMMUNICATIONS MANAGER 04/02/2016 Office visit Lena El COMMUNICATIONS MANAGER 04/02/2016 Office visit Heena Dumont MD 03/26/2016 Office visit Yesica Falcon COMMUNICATIONS MANAGER 03/17/2016 Office visit Heena Dumont MD 03/05/2016 Office visit Kaylynn Mendez COMMUNICATIONS MANAGER 02/16/2016 Office visit Heena Dumont MD 02/14/2016 Office visit Na Jones COMMUNICATIONS MANAGER 01/16/2016 Office visit Heena Dumont MD 12/16/2015 Office visit Heena Dumont MD 11/24/2015 Office visit Kaylynn Mendez COMMUNICATIONS MANAGER 11/18/2015 Office visit Heena Dumont MD 11/03/2015 Office visit Sundeep Russell COMMUNICATIONS MANAGER 10/20/2015 Office visit Kaylynn Mendez COMMUNICATIONS MANAGER 09/23/2015 Office visit Kaylynn Mendez COMMUNICATIONS MANAGER 09/16/[address] Pepe Figueroa MD 09/02/2015 Office visit Kaylynn Mendez COMMUNICATIONS MANAGER 09/01/2015 Office visit Kaylynn Mendez COMMUNICATIONS MANAGER 07/30/2015 Office visit Heena Dumont MD 07/15/2015 Office visit Kaylynn Mendez COMMUNICATIONS MANAGER 07/04/2015 Office visit Heena Dumont MD 06/06/2015 Office visit Heena Dumont MD 06/06/2015 Office visit Kaylynn Mendez COMMUNICATIONS MANAGER 06/02/2015 Office visit Kaylynn Mendez COMMUNICATIONS MANAGER 05/26/2015 Office visit Kaylynn Mendez COMMUNICATIONS MANAGER 05/20/2015 Office visit Kaylynn Mendez COMMUNICATIONS MANAGER 05/08/2015 Office visit Heena Dumont MD 05/06/2015 Office visit Kaylynn Mendez COMMUNICATIONS MANAGER 04/29/2015 Office visit Kaylynn Mendez COMMUNICATIONS MANAGER 03/27/2015 Voided Brittni Yanez COMMUNICATIONS MANAGER 03/21/2015 Office visit Heena Dumont MD 03/12/2015 Office visit Kaylynn Mendez COMMUNICATIONS MANAGER 02/26/2015 Office visit Brittni Yanez COMMUNICATIONS MANAGER 02/13/2015 Office visit Heena Dumont MD 01/15/2015 Office visit Brittni Yanez COMMUNICATIONS MANAGER 01/13/2015 Office visit Heena Dumont MD 01/08/[address] Carol Fowler MD 01/01/2015 Office visit Brittni Yanez COMMUNICATIONS MANAGER 12/13/2014 Office visit Heena Dumont MD 11/27/2014 Office visit Kaylynn Mendez COMMUNICATIONS MANAGER 11/14/2014 Office visit Heena Dumont MD 10/18/2014 Office visit Heena Dumont MD 10/17/2014 [facility] Eliseo Hoskins MD 10/09/2014 Office visit Heena Dumont MD 09/25/2014 Office visit Heena Dumont MD 09/17/2014 Office visit Kaylynn Mendez COMMUNICATIONS MANAGER 09/04/2014 Office visit Heena Dumont MD 08/28/2014 Office visit Kaylynn Mendez COMMUNICATIONS MANAGER 08/23/2014 [facility] Eliseo Hoskins MD 08/01/2014 Office visit Kaylynn Mendez COMMUNICATIONS MANAGER 07/29/2014 Office visit Heena Dumont MD 07/25/2014 Nurse visit Heena Dumont MD 07/17/2014 Office visit Kaylynn Mendez COMMUNICATIONS MANAGER 07/11/2014 Office visit Heena Dumont MD 07/01/2014 Office visit Heena Dumont MD 06/25/2014 Office visit Kaylynn Mendez COMMUNICATIONS MANAGER 06/12/2014 Office visit Kaylynn Mendez COMMUNICATIONS MANAGER 06/06/2014 Office visit Kaylynn Mendez COMMUNICATIONS MANAGER 05/27/2014 Office visit Heena Dumont MD 04/20/2014 Office visit Yesica Falcon COMMUNICATIONS MANAGER 03/29/2014 Office visit Na Jones COMMUNICATIONS MANAGER 03/15/2014 Office visit Heena Dumont MD 2014 Office visit Heena Dumont MD 2014 [facility] Eliseo Hoskins MD 02/27/2014 Nurse visit Heena Dumont MD 02/13/2014 Office visit Lena El COMMUNICATIONS MANAGER 02/07/2014 Office visit Heena Dumont MD 02/03/2014 Office visit Na Jones COMMUNICATIONS MANAGER 01/30/2014 Office visit Kaylynn Mendez COMMUNICATIONS MANAGER 01/24/2014 Office visit Sundeep Russell COMMUNICATIONS MANAGER 01/16/2014 Office visit Kaylynn Mendez COMMUNICATIONS MANAGER 01/10/2014 Nurse visit Kaylynn Mendez COMMUNICATIONS MANAGER 01/08/2014 Office visit Kaylynn Mendez COMMUNICATIONS MANAGER 12/05/2013 Office visit Kaylynn Mendez COMMUNICATIONS MANAGER 11/21/2013 Office visit Kaylynn Mendez COMMUNICATIONS MANAGER 10/23/2013 Office visit Brittni Yanez COMMUNICATIONS MANAGER 10/17/2013 Nurse visit Heena Dumont MD 10/12/2013 Office visit Kaylynn Mendez COMMUNICATIONS MANAGER 10/02/2013 Office visit Heena Dumont MD 09/20/2013 Nurse visit Kaylynn Walker COMMUNICATIONS MANAGER 09/20/2013 Voided Heena Dumont MD 09/14/2013 Office visit Kaylynn Walker COMMUNICATIONS MANAGER 09/05/2013 Office visit Sundeep Russell COMMUNICATIONS MANAGER 09/04/2013 Nurse visit Kaylynn Walker COMMUNICATIONS MANAGER 08/31/2013 Office visit Kaylynn Walker COMMUNICATIONS MANAGER 08/23/2013 Office visit Heena Dumont MD 08/10/2013 Office visit Kaylynn Walker COMMUNICATIONS MANAGER 07/25/2013 Office visit Kaylynn Walker COMMUNICATIONS MANAGER 07/18/2013 Office visit Kaylynn Walker COMMUNICATIONS MANAGER 07/12/2013 Office visit Kaylynn Walker COMMUNICATIONS MANAGER 06/28/2013 Nurse visit Kaylynn Walker COMMUNICATIONS MANAGER 06/14/2013 Nurse visit Kaylynn Walker COMMUNICATIONS MANAGER 06/08/2013 Nurse visit Kaylynn Walker COMMUNICATIONS MANAGER 05/31/2013 Nurse visit Chadd Norris DO 05/18/2013 Office visit Terese Davidson MD 05/16/2013 Office visit Kaylynn Walker COMMUNICATIONS MANAGER 05/09/2013 Office visit Kaylynn Walker COMMUNICATIONS MANAGER 04/29/2013 [facility] Eliseo Hoskins MD 04/25/2013 Nurse visit Kaylynn Walker COMMUNICATIONS MANAGER 04/17/2013 Office visit Kaylynn Walker COMMUNICATIONS MANAGER 04/03/2013 Nurse visit Kaylynn Walker COMMUNICATIONS MANAGER 04/03/2013 Office visit Terese Davidson MD 03/28/2013 Office visit Sundeep Russell COMMUNICATIONS MANAGER 03/21/2013 Office visit Kaylynn Mendez COMMUNICATIONS MANAGER 03/20/2013 Office visit Terese Davidson MD 03/14/2013 Nurse visit Kaylynn Walker COMMUNICATIONS MANAGER 03/05/2013 Nurse visit Kaylynn Mendez COMMUNICATIONS MANAGER 02/19/2013 Office visit Terese Davidson MD 02/16/2013 Nurse visit Kaylynn Walker COMMUNICATIONS MANAGER 02/09/2013 Office visit Sundeep Russell COMMUNICATIONS MANAGER 02/08/2013 Nurse visit Kaylynn Walker COMMUNICATIONS MANAGER 02/01/2013 Nurse visit Kaylynn Walker COMMUNICATIONS MANAGER 01/26/2013 Nurse visit Sabrina Mendez [employer] ANALYST 01/25/2013 Office visit Kaylynn Walker COMMUNICATIONS MANAGER 01/22/2013 Office visit Yoan Castaneda MD 01/18/2013 Nurse visit Kaylynn Walker COMMUNICATIONS MANAGER 01/11/2013 Nurse visit Kaylynn Walker COMMUNICATIONS MANAGER 01/05/2013 Nurse visit Kaylynn Walker COMMUNICATIONS MANAGER 12/29/2012 Office visit Kaylynn Walker COMMUNICATIONS MANAGER 11/27/2012 Office visit Kaylynn Mendez COMMUNICATIONS MANAGER 11/08/2012 Office visit Odell Tierney MD 11/08/2012 Voided Odell Tierney MD 11/07/2012 Office visit Kaylynn Mendez COMMUNICATIONS MANAGER 10/31/2012 Hospital John Hoskins MD 10/31/2012 Office visit Kaylynn Walker COMMUNICATIONS MANAGER 10/19/2012 Office visit Genoveva Ayala COMMUNICATIONS MANAGER 10/10/2012 Office visit Kaylynn Walker COMMUNICATIONS MANAGER 10/03/2012 Office visit Kaylynn Walker COMMUNICATIONS MANAGER 09/26/2012 Office visit Kaylynn Walker COMMUNICATIONS MANAGER 09/06/2012 Office visit Kaylynn Andrea COMMUNICATIONS MANAGER 09/06/2012 Office visit Odell Tierney MD 08/31/2012 Voided Kaylynn Mendez COMMUNICATIONS MANAGER 07/28/2012 Office visit Kaylynn Walker COMMUNICATIONS MANAGER 07/27/2012 Office visit David Joyner DO 07/20/2012 [facility] David Bouman DO 07/13/2012 Hospital David Bouman DO 07/11/2012 Office visit Kaylynn Andrea COMMUNICATIONS MANAGER 06/27/2012 [facility] Odell Tierney MD 06/21/2012 Office visit David Joyner DO 06/21/2012 Office visit Odell Tierney MD 06/20/2012 Office visit Brittni Yanez COMMUNICATIONS MANAGER 06/06/2012 Office visit Odell Tierney MD 05/03/2012 Office visit Kaylynn Mendez COMMUNICATIONS MANAGER 04/28/2012 Office visit Brittni Yanez COMMUNICATIONS MANAGER 04/11/2012 Office visit Kaylynn Mendez COMMUNICATIONS MANAGER 04/06/2012 Hospital John Hoskins MD 03/30/2012 Office visit Kaylynn Walker COMMUNICATIONS MANAGER 03/15/2012 Office visit Kaylynn Mendez COMMUNICATIONS MANAGER 03/15/2012 Office visit Odell Tierney MD 02/09/2012 Office visit Kaylynn Mendez COMMUNICATIONS MANAGER 12/23/2011 Office visit Kaylynn Mendez COMMUNICATIONS MANAGER 11/02/2011 Office visit Kaylynn Walker COMMUNICATIONS MANAGER 10/14/2011 Office visit Kaylynn Walker COMMUNICATIONS MANAGER 09/27/2011 Office visit Kaylynn Walker COMMUNICATIONS MANAGER 08/19/2011 Hospital John Hoskins MD 08/18/2011 Hospital John Hoskins MD 08/18/2011 Office visit Kaylynn Walker COMMUNICATIONS MANAGER 08/02/2011 Office visit Kaylynn Walker COMMUNICATIONS MANAGER 07/08/2011 Office visit Kaylynn Walker COMMUNICATIONS MANAGER 07/05/2011 Office visit Odell Tierney MD 06/15/2011 Office visit Kaylynn Mendez COMMUNICATIONS MANAGER 05/14/2011 Office visit Kaylynn Mendez COMMUNICATIONS MANAGER 05/11/2011 Office visit Odell Tierney MD 04/28/2011 Office visit Kaylynn Walker COMMUNICATIONS MANAGER 03/02/2011 Office visit Chadd Norris DO 02/17/2011 [...]
--- OUTSIDE RECORDS SUMMARY | 2018-05-09 15:24 | XMS REPORT ---
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 Role Phone Heena Dumont PCP Allergies and Adverse Reactions Name Reaction Notes Aspirin Methadone Ultram Vicodin Plan of Treatment Planned Activity Comments Planned Date Planned Time Plan/Goal CINE/VID X-RAY THROAT/ESOPH 05/08/2015 12:00 AM TDAP VACCINE 7 YRS/> IM 06/06/2015 12:00 AM ELECTROCARDIOGRAM COMPLETE 10/31/2012 12:[address] PELVIS W/O & W/DYE 11/03/2012 12:[address] ABDOMEN W/O & W/DYE 11/03/2012 12:00 AM LIVER IMAGING (3D) 11/14/2012 12:00 AM ASSAY OF LIPASE 11/27/2012 12:00 AM BLOOD SMEAR INTERPRETATION 11/27/2012 12:00 AM URINE CULTURE/COLONY COUNT 11/27/2012 12:00 AM IMMUNOTHERAPY INJECTIONS 01/11/2013 12:00 AM IMMUNOTHERAPY ONE INJECTION 01/26/2013 12:00 AM IMMUNOTHERAPY INJECTIONS 03/05/2013 12:00 AM BLOOD SMEAR INTERPRETATION 12/12/2013 12:00 AM THER/PROPH/DIAG INJ SC/IM 03/29/2014 12:00 AM THER/PROPH/DIAG INJ SC/IM 03/29/2014 12:00 AM THER/PROPH/DIAG INJ SC/IM 03/29/2014 12:00 AM CHEST X-RAY 2VW FRONTAL&LATL 06/12/2014 12:00 AM COMPLETE CBC W/AUTO DIFF WBC 10/01/2014 12:00 AM X-RAY EXAM OF ABDOMEN 09/25/2014 12:00 AM Medications Active Name Start [...] 2,000 units once daily for 30 days. Myrbetriq 25 mg oral tablet extended release 24 hr take 1 tablet (25 mg ) by oral route once daily swallowing whole with water. Do not crush, chew and/ or divide. amitriptyline 25 mg oral tablet 12/07/2013 TAKE 1-2 TABLETS BY ORAL ROUTE ONCE DAILY AT BEDTIME PRN Janumet 50-1,000 mg oral tablet 01/08/2014 take 1 tablet by oral route 2 times per day with meals Zovirax 5 % topical cream 01/16/2014 apply to the affected area(s) by topical route 5 times per day montelukast 10 mg oral tablet 02/25/2014 TAKE [...] 3 TIMES PER DAY PRN MUSCLE SPASM Glucose test strips and lancets 08/14/2014 08/09/2015 Test bid OneTouch Delica Lancets 33 gauge miscellaneous misc 08/21/2014 use as directed Calcium 500 + D 500 mg(1,250mg) -200 unit oral tablet take 1 tablet by oral route daily promethazine 25 mg oral tablet 10/07/2014 TAKE 1 TABLET BY MOUTH TWICE DAILY Spiriva with HandiHaler 18 mcg inhalation capsule, w/inhalation device inhale 1 capsule (18 mcg) by inhalation route once daily promethazine 25 mg oral tablet 12/16/2014 TAKE 1 TABLET BY MOUTH TWICE DAILY Invokana 100 mg oral tablet take 1 tablet (100 mg) by oral route once daily before the first meal of the day Zyrtec 10 mg oral tablet take 1 tablet (10 mg) by oral route once daily magnesium oxide 400 mg oral capsule take 1 capsule by oral route daily Symbicort 160-4.5 mcg/actuation inhalation HFA aerosol inhaler inhale 2 puffs by inhalation route 2 times per day in the morning and evening EpiPen 0.3 mg/0.3 mL (1:1,000) injection auto-injector inject 0.3 milliliter (0.3 mg) by intramuscular route once as needed for anaphylaxis Prolia 60 mg/mL subcutaneous syringe inject 1 milliliter (60 mg) by subcutaneous route every 6 months in the upper arm, upper thigh or abdomen promethazine 25 mg oral tablet 01/27/2015 TAKE 1 TABLET BY MOUTH TWICE DAILY simvastatin 20 mg oral tablet take 1 tablet (20 mg) by oral route once daily in the evening fenofibrate 120 mg oral tablet take 1 tablet (120 mg) by oral route once daily Lasix 20 mg oral tablet 03/21/2015 06/19/2015 take 1 tablet (20 mg) by oral route once daily for 1-3 days at a time then reassess swelling, use PRN potassium chloride 10 mEq oral capsule, extended release 03/21/20152015 take 1 capsule (10 meq) by oral route only when taking lasix. promethazine 50 mg oral tablet 04/29/2015 take 1 tablet (50 mg) by oral route once daily at bedtime Vimovo 500-20 mg oral tablet,IR & delay rel,biphasic 05/08/2015 09/05/2015 take 1 tablet by oral route 2 times per day 30 minutes before meals for 30 days clobetasol-emollient 0.05 % topical foam 05/08/2015 09/05/2015 apply by external route once daily naproxen 500 mg oral tablet 05/19/2015 08/17/2015 take 1 tablet by oral route 2 times a day for 30 days omeprazole 20 mg oral capsule,delayed release(DR/EC) 05/19/2015 09/16/2015 take 1 capsule (20 mg) by oral route once daily before a meal for 30 days Grastek 2,800 BAU sublingual tablet, sublingual 06/06/2015 place 1 tablet under tongue by translingual route daily QNASL 80 mcg/actuation nasal HFA aerosol inhaler 06/06/2015 spray 2 sprays ( 160 mcg) in each nostril by intranasal route once daily montelukast 10 mg oral tablet 06/06/2015 TAKE 1 TABLET BY MOUTH EVERY EVENING hydrocodone-acetaminophen 7.5-325 mg oral tablet 06/06/2015 07/06/2015 take 1 tablet by oral route every 8 hours for 30 days Name Start Date [...] oral route once daily for 7 days Savella 50 mg oral tablet 09/10/2013 03/09/2014 take 1 tablet (50 mg) by oral route 2 for 30 days Zithromax Z-Simon 250 mg [...] 08/27/2014 use as directed for 99 days [place] 5-325 mg oral tablet 06/17/2014 06/27/2014 take 1 tablet by oral route every 6 hours as needed for pain for 10 days promethazine 25 mg oral tablet 07/01/2014 09/29/2014 take 1 tablet (25 mg) by oral route 2 times per day for 30 days Ambien CR 12.5 mg [...] a day as needed for 30 days rfqptqbn-stfvsdjop-HG 3.5-10,000-1 mg/mL-unit/mL-% otic drops,suspension 201401/08/2015 instill 4 drops into affected ear(s) by otic route 3 times per day for 7 days rx completed Ambien CR 12.5 mg oral tablet,ext release multiphase 02/25/2015 03/27/2015 take 1 tablet (12.5 mg) by oral route once daily at bedtime for 30 days baclofen 10 mg oral tablet 03/12/2015 04/11/2015 1 TABLET BY ORAL ROUTE BEFORE BED PRN MUSCLE SPASM Levaquin 750 mg oral tablet 05/06/2015 05/13/2015 [...] ORAL ROUTE ONCE DAILY AT BEDTIME PRN Sudafed 12 Hour 120 mg oral tablet [...] before the first meal of the day magnesium oxide 400 mg oral capsule 10/18/2014 [...] BID x 2 weeks. Startes on 10-13-14 carbamazepine 200 mg oral tablet extended release 12 hr 10/18/2014 12/13/2014 take 1 tablet (200 mg) by oral route every 12 hours for 30 days Pt. reports not having the seizures promethazine-DM 6.25-15 mg/5 mL oral syrup 05/06/2015 [...] route every 12 hours for 30 days Problem List Description [...] 01/08/2014 Osteoporosis Active Vaginal lesion Active 02/13/2014 Vital Signs Date Time BP-Sys(mm[Hg] BP-Lisha(mm[Hg]) HR(bpm) RR(rpm) Temp WT HT HC BMI BSA BMI Percentile O2 Sat(%) 06/06/2015 10:02:00 AM 110 mmHg 70 mmHg [...] F 176 lbs 64 in 30.21 kg/m 1.90 m2 96 % 10/12/2013 9:34:00 AM 122 mmHg 66 mmHg 111 bpm 18 rpm 97.7 F 177.125 lbs 94 % 10/02/2013 4:04:00 PM 130 mmHg 80 mmHg 105 bpm 18 rpm 98.1 F 177 lbs 64 in 30.3817 kg/m 1.90 m2 97 % 09/14/2013 10:08:00 AM [...] 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 History of Procedures Date Ordered Description Order Status 02/13/2015 12:00 AM IMMUNIZATION ADMIN Reviewed 02/13/2015 12:00 AM INFLUENZA VAC 4 VALENT PRSRV FREE 3 YRS PLUS IM Reviewed 02/13/2015 12:00 AM Tick Panel Returned 03/21/2015 12:00 AM RADEX SPINE CERVICAL 2 OR 3 VIEWS Returned 04/29/2015 12:00 AM INFLUENZA A/B AG EIA Returned 05/20/2015 12:00 AM COMPLETE CBC W/AUTO DIFF WBC Returned 05/20/2015 12:00 AM COMPREHEN METABOLIC PANEL Returned 05/20/2015 12:00 AM CHEST X-RAY 2VW FRONTAL&LATL Returned 05/20/2015 12:00 AM BORDETELLA ANTIBODY Returned 05/20/2015 12:00 AM FIBRIN DEGRADATION QUANT Returned 05/26/2015 12:00 AM X-RAY EXAM OF FOOT Returned 06/02/2015 12:00 AM DXA BONE DENSITY AXIAL Returned 04/28/2011 12:00 AM THER/PROPH/DIAG INJ SC/IM Reviewed 04/28/2011 12:00 AM Decadron 1 mg [facility]#[id number] (Jr) Reviewed 04/28/2011 12:00 AM Depo-Medrol 80 mg NDC#[id number]-Hbsfspap Reviewed 05/11/2011 12:00 AM N BLOCK INJ OCCIPITAL Reviewed 05/11/2011 12:00 AM Kenalog Pt-[address]-20 ANNA Reviewed 06/15/2011 12:00 AM COMPLETE CBC W/AUTO DIFF WBC Returned 06/15/2011 12:00 AM COMPREHEN METABOLIC PANEL Returned 07/08/2011 12:00 AM THER/PROPH/DIAG INJ SC/IM Reviewed 07/08/2011 12:00 AM Toradol,15mg NDC#[id number], Hetmejiaer Reviewed 07/08/2011 12:00 AM Phenergan 50 Mg Im Nd 3220-2394-68 ALLIE Hoskins Reviewed 08/02/2011 12:00 AM THER/PROPH/DIAG INJ SC/IM Reviewed 08/02/2011 12:00 AM Decadron 1 mg NDC#[id number] (Jr) Reviewed 08/02/2011 12:00 AM Depo-Medrol 80 mg NDC#[id number]-Afavpjcp Reviewed 09/27/2011 12:00 AM THER/PROPH/DIAG INJ SC/IM Reviewed 09/27/2011 12:00 AM Depo-Medrol 80 mg NDC#[id number]-Hjsdxcdd Reviewed 10/14/2011 12:00 AM X-RAY EXAM OF ABDOMEN Returned 10/14/2011 12:00 AM URINALYSIS AUTO W/O SCOPE Reviewed 12/23/2011 12:00 AM THER/PROPH/DIAG INJ SC/IM Reviewed 12/23/2011 12:00 AM Decadron 1 mg NDC#[id number] (Jr) Reviewed 12/23/2011 12:00 AM Depo-Medrol 80 mg NDC#[id number]-Ftbfvmzo Reviewed 02/09/2012 12:00 AM THER/PROPH/DIAG INJ SC/IM Reviewed 02/09/2012 12:00 AM Decadron 1 mg NDC#[id number] (Jr) Reviewed 02/09/2012 12:00 AM Depo-Medrol 80 mg NDC#[id number]-Lkjfvlfh Reviewed 03/15/2012 12:00 AM N BLOCK INJ OCCIPITAL Reviewed 03/15/2012 12:00 AM Kenalog Bj-[address]-20 ANNA Reviewed 04/11/2012 12:00 AM COMPLETE CBC W/AUTO DIFF WBC Returned 04/11/2012 12:00 AM COMPREHEN METABOLIC PANEL Returned 04/11/2012 12:00 AM LIPID PANEL Returned 04/11/2012 12:00 AM ASSAY THYROID STIM HORMONE Returned 06/20/2012 12:00 AM THER/PROPH/DIAG INJ SC/IM Reviewed 06/20/2012 12:00 AM Decadron, Per 1 Mg ND# [address]-86 Reviewed 06/20/2012 12:00 AM Depo-Medrol, Per 80 Mg ND#3638-1983-45 Reviewed 09/06/2012 12:00 AM N BLOCK INJ OCCIPITAL Reviewed 09/06/2012 12:00 AM Kenalog Sq-[address]-20 ANNA Reviewed 09/06/2012 12:00 AM X-RAY EXAM RIBS UNI 2 VIEWS Returned 09/26/2012 12:00 AM THER/PROPH/DIAG INJ SC/IM Reviewed 09/26/2012 12:00 AM Decadron, Per 1 Mg ND# [address]-01 Reviewed 09/26/2012 12:00 AM Depo-Medrol, Per 80 Mg ND#6579-5361-64 Reviewed 10/03/2012 12:00 AM URINALYSIS AUTO W/O SCOPE Reviewed 10/03/2012 12:00 AM THER/PROPH/DIAG INJ SC/IM Reviewed 10/03/2012 12:00 AM Toradol 60 Mg ND#4488-2217-65 Reviewed 10/03/2012 12:00 AM Phenergan, 25Mg ND#4271-2407-69 Reviewed 10/19/2012 12:00 AM N BLOCK INJ OCCIPITAL Reviewed 10/19/2012 12:00 AM Kenalog, Per 10 Mg ND#1859-5211-37 Reviewed 10/19/2012 12:00 AM Toradol 30 Mg ND#2085-9230-45 Reviewed 10/19/2012 12:00 AM THER/PROPH/DIAG INJ SC/IM Reviewed 10/31/2012 12:00 AM COMPLETE CBC W/AUTO DIFF WBC Returned 10/31/2012 12:00 AM COMPREHEN METABOLIC PANEL Returned 10/31/2012 12:00 AM LIPID PANEL Returned 11/03/2012 12:[address] THORAX W/O & W/DYE Returned 11/08/2012 12:00 AM N BLOCK INJ OCCIPITAL Reviewed 11/08/2012 12:00 AM Kenalog Bq-[address]-20 ANNA Reviewed 11/27/2012 12:00 AM COMPLETE CBC W/AUTO DIFF WBC Returned 11/27/2012 12:00 AM COMPREHEN METABOLIC PANEL Returned 11/27/2012 12:00 AM URINALYSIS NONAUTO W/SCOPE Returned 01/05/2013 12:00 AM IMMUNOTHERAPY INJECTIONS Reviewed 01/11/2013 12:00 AM Holter monitoring, 24-hour, continuous original ECG waveform, recording and storage without superimposition scanning utilizing a device capable of producing a full miniaturized printout; includes recording, microprocessor-based analysis with report, physician review and interpretation Returned 01/18/2013 12:00 AM IMMUNOTHERAPY INJECTIONS Reviewed 01/22/2013 12:00 AM Pelvic & Breast Exam - Medicare Returned 01/22/2013 12:00 AM Pap Specimen Handling - Medicare Reviewed 01/22/2013 12:00 AM HIV-1ANTIBODY Returned 01/25/2013 12:00 AM THER/PROPH/DIAG INJ SC/IM Reviewed 01/25/2013 12:00 AM Decadron, Per 1 Mg [facility]# [address]-95 Reviewed 01/25/2013 12:00 AM Depo-Medrol, Per 80 Mg [facility]#1676-5200-77 Reviewed 01/26/2013 12:00 AM IMMUNOTHERAPY INJECTIONS Returned 02/01/2013 12:00 AM IMMUNOTHERAPY INJECTIONS Reviewed 02/08/2013 12:00 AM IMMUNOTHERAPY INJECTIONS Reviewed 02/16/2013 12:00 AM IMMUNOTHERAPY INJECTIONS Reviewed 03/14/2013 12:00 AM IMMUNOTHERAPY INJECTIONS Reviewed 03/20/2013 12:00 AM Cervical Spine Complete - MOB Returned 03/21/2013 12:00 AM COMPLETE CBC W/AUTO DIFF WBC Returned 03/21/2013 12:00 AM COMPREHEN METABOLIC PANEL Returned 03/21/2013 12:00 AM ASSAY OF LIPASE Returned 03/21/2013 12:00 AM X-RAY EXAM OF ABDOMEN Returned 03/22/2013 12:00 AM GLYCOSYLATED HEMOGLOBIN TEST Returned 04/03/2013 12:00 AM IMMUNOTHERAPY INJECTIONS Reviewed 04/17/2013 12:00 AM URINE CULTURE/COLONY COUNT Returned 04/25/2013 12:00 AM IMMUNOTHERAPY INJECTIONS Reviewed 05/16/2013 12:00 AM THER/PROPH/DIAG INJ SC/IM Reviewed 05/16/2013 12:00 AM Decadron, Per 1 Mg [facility]# [address]-16 Reviewed 05/16/2013 12:00 AM Depo-Medrol, Per 80 Mg [facility]#1245-4845-64 Reviewed 05/31/2013 12:00 AM IMMUNOTHERAPY INJECTIONS Reviewed 06/08/2013 12:00 AM IMMUNOTHERAPY INJECTIONS Reviewed 06/14/2013 12:00 AM IMMUNOTHERAPY INJECTIONS Reviewed 06/28/2013 12:00 AM IMMUNOTHERAPY INJECTIONS Reviewed 07/12/2013 12:00 AM X-RAY EXAM RIBS UNI 2 VIEWS Returned 07/18/2013 12:00 AM Toradol 60 Mg [facility]#9719-2719-61 Reviewed 07/18/2013 12:00 AM THER/PROPH/DIAG INJ SC/IM Reviewed 08/23/2013 12:00 AM COMPLETE CBC W/AUTO DIFF WBC Reviewed 08/23/2013 12:00 AM COMPREHEN METABOLIC PANEL Reviewed 08/23/2013 12:00 AM LIPID PANEL Reviewed 08/31/2013 12:00 AM X-RAY EXAM OF LOWER LEG Returned 09/04/2013 12:00 AM IMMUNOTHERAPY INJECTIONS Reviewed 09/14/2013 12:00 AM THER/PROPH/DIAG INJ SC/IM Reviewed 09/14/2013 12:00 AM Decadron, Per 1 Mg [facility]# [address]-50 Reviewed 09/14/2013 12:00 AM Depo-Medrol, Per 80 Mg [facility]#0168-6344-75 Reviewed 09/20/2013 12:00 AM IMMUNOTHERAPY INJECTIONS Reviewed [...] INJ OCCIPITAL Reviewed 12/10/2009 12:00 AM Kenalog Qg-[address]-20 ANNA Reviewed 12/16/2009 12:00 AM HIV-1ANTIBODY Reviewed 12/16/2009 12:00 AM COMPLETE CBC W/AUTO DIFF WBC Reviewed 12/16/2009 12:00 AM METABOLIC PANEL TOTAL CA Reviewed 12/16/2009 12:00 AM Type and screen Reviewed 12/16/2009 12:00 AM PROTHROMBIN TIME Reviewed 12/16/2009 12:00 AM THROMBOPLASTIN TIME PARTIAL Reviewed 03/18/2010 12:00 AM DRAIN/INJ JOINT/BURSA W/O US Reviewed 03/18/2010 12:00 AM Kenalog Bs-[address]-20 ANNA Reviewed 11/21/2013 12:00 AM RADEX HAND MINIMUM 3 VIEWS Returned 06/03/2010 12:00 AM INJ TRIGGER POINT 05/31 MUSCL Reviewed 06/03/2010 12:00 AM Kenalog per 10Mg [facility]#[address]-49(Niall) Reviewed 12/05/2013 12:00 AM COMPLETE CBC W/AUTO DIFF WBC Returned 12/05/2013 12:00 AM COMPREHEN METABOLIC PANEL Returned 12/05/2013 12:00 AM LIPID PANEL Returned 12/05/2013 12:00 AM GLYCOSYLATED HEMOGLOBIN TEST Returned 12/05/2013 12:00 AM ASSAY THYROID STIM HORMONE Returned 12/05/2013 12:00 AM ACUTE HEPATITIS PANEL Returned 12/05/2013 12:00 AM ASSAY OF GONADOTROPIN (FSH) Returned 12/05/2013 12:00 AM ASSAY OF ESTRADIOL Returned 12/05/2013 12:00 AM ASSAY OF FREE TESTOSTERONE Returned 12/05/2013 12:00 AM ASSAY OF PROGESTERONE Returned 06/18/2010 12:00 AM INJ TRIGGER POINT 05/31 MUSCL Reviewed 01/10/2014 12:00 AM Prolia, 1 Mg RHC Medicare Reviewed 02/07/2014 12:00 AM VIT D 1 25-DIHYDROXY Returned 02/13/2014 12:00 AM VIRUS INOCULATION TISSUE Returned 02/25/2014 12:00 AM COMPLETE CBC W/AUTO DIFF WBC Returned 02/25/2014 12:00 AM COMPREHEN METABOLIC PANEL Returned 02/25/2014 12:00 AM METABOLIC PANEL TOTAL CA Returned 02/25/2014 12:00 AM LIPID PANEL Returned 02/25/2014 12:00 AM GLYCOSYLATED HEMOGLOBIN TEST Returned 02/25/2014 12:00 AM Physical Therapy Consult Returned 07/23/2010 12:00 AM INJ TRIGGER POINT 2 MUSCL Reviewed 07/23/2010 12:00 AM Kenalog per 10Mg Im-[facility]#[address]-48(Niall) Reviewed 2014 12:00 AM COMPLETE CBC W/AUTO DIFF WBC Returned 2014 12:00 AM COMPREHEN METABOLIC PANEL Returned 2014 12:00 AM ASSAY OF MAGNESIUM Returned 2014 12:00 AM ELECTROCARDIOGRAM COMPLETE Reviewed 04/24/2014 12:00 AM INFLUENZA VAC 4 VALENT PRSRV FREE 3 YRS PLUS IM Reviewed 08/26/2010 12:00 AM URINALYSIS NONAUTO W/SCOPE Reviewed 08/26/2010 12:00 AM METABOLIC PANEL TOTAL CA Reviewed 05/27/2014 12:00 AM COMPLETE CBC W/AUTO DIFF WBC Returned 05/27/2014 12:00 AM COMPREHEN METABOLIC PANEL Returned 05/27/2014 12:00 AM LIPID PANEL Returned 05/27/2014 12:00 AM VITAMIN B-12 Returned 05/27/2014 12:00 AM ASSAY THYROID STIM HORMONE Returned 05/27/2014 12:00 AM ASSAY OF PHOSPHORUS Returned 05/27/2014 12:00 AM ASSAY OF PARATHORMONE Returned 05/27/2014 12:00 AM VIT D 1 25-DIHYDROXY Returned 06/06/2014 12:00 AM INFLUENZA A/B AG EIA Returned 06/12/2014 12:00 AM CHEST X-RAY 2VW FRONTAL&LATL Returned 06/27/2014 12:00 AM CHEST X-RAY 2VW FRONTAL&LATL Returned 07/18/2014 12:[address] HEAD/BRAIN W/O DYE Returned 07/29/2014 12:00 AM MRI BRAIN STEM W/O & W/DYE Returned 07/29/2014 12:00 AM MRI JNT OF LWR EXTRE W/O DYE Returned 10/01/2010 12:00 AM N BLOCK INJ OCCIPITAL Reviewed 10/01/2010 12:00 AM Kenalog Cv-[id number] ANNA Reviewed 07/25/2014 12:00 AM THER/PROPH/DIAG INJ SC/IM Reviewed 07/25/2014 12:00 AM Prolia, 60 Mg Reviewed 07/01/2014 12:00 AM COMPLETE CBC W/AUTO DIFF WBC Returned 07/01/2014 12:00 AM COMPREHEN METABOLIC PANEL Returned 07/01/2014 12:00 AM MRI JOINT OF LWR EXTR W/DYE Returned 07/01/2014 12:00 AM ASSAY OF GGT Returned 07/01/2014 12:00 AM ALPHA-FETOPROTEIN SERUM Returned 07/11/2014 12:00 AM CHEST X-RAY 2VW FRONTAL&LATL Returned 08/28/2014 12:00 AM CLOSTRIDIUM AG EIA Reviewed 08/28/2014 12:00 AM X-RAY EXAM OF ABDOMEN Reviewed 08/28/2014 12:00 AM FECES CULTURE AEROBIC BACT Reviewed 10/01/2014 12:00 AM COMPREHEN METABOLIC PANEL Returned 11/19/2010 12:[address] ABDOMEN W/O & W/DYE Reviewed 11/19/2010 12:[address] PELVIS W/O & W/DYE Reviewed 09/25/2014 12:00 AM CLOSTRIDIUM AG EIA Returned 09/25/2014 12:00 AM COMPREHEN METABOLIC PANEL Returned 09/25/2014 12:00 AM ASSAY OF LIPASE Returned 12/02/2010 12:00 AM CYTOPATH TBS C/V MANUAL Reviewed 12/02/2010 12:00 AM Pelvic & Breast Exam - Medicare Reviewed 12/02/2010 12:00 AM Pap Specimen Handling - Medicare Reviewed 10/18/2014 12:00 AM COMPLETE CBC W/AUTO DIFF WBC Returned 10/18/2014 12:00 AM COMPREHEN METABOLIC PANEL Returned 10/18/2014 12:00 AM GLYCOSYLATED HEMOGLOBIN TEST Returned 10/18/2014 12:00 AM URINALYSIS AUTO W/SCOPE Returned 10/18/2014 12:00 AM MICROALBUMIN QUANTITATIVE Returned 01/08/2015 12:00 AM CYTOPATH TBS C/V MANUAL Returned 01/08/2015 12:00 AM SPECIMEN HANDLING OFFICE-LAB Reviewed 01/15/2015 12:00 AM ENT Consult Reviewed Results Summary Data and Description Results 11/11/2009 2:49 PM COLOR YELLOW APPEARANCE CLEAR SPEC GRAV 1.010 pH 6.5 PROTEIN NEGATIVE GLUCOSE NEGATIVE KETONE NEGATIVE BILIRUBIN NEGATIVE BLOOD TRACE -LYSED NITRITE NEGATIVE LEUK SCREEN NEGATIVE CASTS/LPF NEGATIVE CRYSTALS NEGATIVE MUCOUS THRDS NEGATIVE BACTERIA FEW EPITH CELLS FEW SQUAMOUS TRICHOMONAS NEGATIVE YEAST NEGATIVE 12/16/2009 5:20 PM PROTIME 10.30 secsINR 1.0 PTT 26.70 secsGLUCOSE 91.0 mg/ dLSODIUM 136.0 mmol/LPOTASSIUM 4.10 mmol/LCHLORIDE 101.0 mmol/LCO2 24.0 mmol/ LBUN 11.0 mg/dLCREATININE 0.70 mg/dLCALCIUM 10.20 mg/dLeGFR >60 mL/min/1.73 m2WBC 10.5 RBC 3.65 HGB 11.40 g/dLHCT 34.80 %MCV 95.0 fLMCH 31.20 pgMCHC 32.80 g /dLRDW CV 13.70 %MPV 11.30 fLPLT 310 %NEUT 58.90 %%LYMP 30.0 %%MONO 6.40 %%EOS 4.40 %%BASO 0.30 %#NEUT 6.17 #LYMP 3.14 #MONO 0.67 #EOS 0.46 #BASO 0.03 12/24/2009 5:30 AM WBC 13.4 RBC 3.01 HGB 9.30 g/dLHCT 29.10 %MCV 97.0 fLMCH 30.90 pgMCHC 32.0 g/dLRDW CV 12.90 %MPV 11.30 fLPLT 222 %NEUT 71.30 %%LYMP 19.70 %%MONO 6.20 %%EOS 2.70 %%BASO 0.10 %#NEUT 9.51 #LYMP 2.63 #MONO 0.83 #EOS 0.36 #BASO 0.02 08/26/2010 10:35 AM COLOR YELLOW APPEARANCE TURBID SPEC GRAV >=1.030 pH 6.0 PROTEIN NEGATIVE GLUCOSE NEGATIVE KETONE NEGATIVE BILIRUBIN NEGATIVE BLOOD NEGATIVE NITRITE NEGATIVE LEUK SCREEN NEGATIVE CASTS/LPF NEGATIVE CRYSTALS 4+++ + AMORPH MUCOUS THRDS NEGATIVE BACTERIA NEGATIVE EPITH CELLS FEW SQUAMOUS TRICHOMONAS NEGATIVE YEAST NEGATIVE GLUCOSE 101.0 mg/dLSODIUM 140.0 mmol/ LPOTASSIUM 4.80 mmol/LCHLORIDE 103.0 mmol/LCO2 26.0 mmol/LBUN 11.0 mg/ dLCREATININE 0.70 mg/dLCALCIUM 10.50 mg/dLeGFR >60 mL/min/1.73 m2 06/15/2011 2:38 PM WBC 13.1 RBC 4.51 HGB 13.50 g/dLHCT 40.60 %MCV 90.0 fLMCH 29.90 pgMCHC 33.30 g/dLRDW CV 13.40 %MPV 11.40 fLPLT 288 %NEUT 71.30 %%LYMP 20.70 %%MONO 5.10 %%EOS 2.50 %%BASO 0.40 %#NEUT 9.34 #LYMP 2.72 #MONO 0.67 #EOS 0.33 #BASO 0.05 GLUCOSE 103.0 mg/dLSODIUM 142.0 mmol/LPOTASSIUM 4.40 mmol/ LCHLORIDE 103.0 mmol/LCO2 29.0 mmol/LBUN 7.0 mg/dLCREATININE 0.70 mg/dLSGOT/AST 15.0 IU/LSGPT/ALT 27.0 IU/LALK PHOS 173.0 IU/LTOTAL PROTEIN 7.90 g/dLALBUMIN 5.0 g/dLTOTAL BILI 0.20 mg/dLCALCIUM 10.50 mg/dLeGFR >60 mL/min/1.73 m2 06/16/2011 12:02 PM TRIGLYCERIDES 421.0 mg/dLCHOLESTEROL 352.0 mg/dLHDL 27.0 mg /dLLDL (CALC) INVALID MG/DL 07/05/2011 3:55 PM URIC ACID 3.2 mg/dLMAGNESIUM 2.30 mg/dLTSH 0.430 uIU/ mLVITAMIN B12 252.0 pg/mL 04/24/2012 11:10 AM WBC 10.6 RBC 4.50 HGB 13.20 g/dLHCT 40.60 %MCV 90.0 fLMCH 29.30 pgMCHC 32.50 g/dLRDW CV 13.50 %MPV 11.30 fLPLT 231 %NEUT 65.0 %%LYMP 25.10 %%MONO 6.70 %%EOS 2.90 %%BASO 0.30 %#NEUT 6.91 #LYMP 2.67 #MONO 0.71 #EOS 0.31 #BASO 0.03 GLUCOSE 93.0 mg/dLSODIUM 139.0 mmol/LPOTASSIUM 4.30 mmol/ LCHLORIDE 105.0 mmol/LCO2 23.0 mmol/LBUN 9.0 mg/dLCREATININE 0.70 mg/dLSGOT/AST 37.0 IU/LSGPT/ALT 62.0 IU/LALK PHOS 131.0 IU/LTOTAL PROTEIN 7.70 g/dLALBUMIN 4.70 g/dLTOTAL BILI 0.30 mg/dLCALCIUM 10.10 mg/dLeGFR 60 TRIGLYCERIDES 347.0 mg/ dLCHOLESTEROL 168.0 mg/dLHDL 23.0 mg/dLLDL (CALC) 76.0 mg/dLTSH 0.930 uIU/mL 11/01/2012 9:46 AM GLUCOSE 141.0 mg/dLSODIUM 138.0 mmol/LPOTASSIUM 5.10 mmol/ LCHLORIDE 100.0 mmol/LCO2 25.0 mmol/LBUN 13.0 mg/dLCREATININE 0.80 mg/dLSGOT/ AST 51.0 IU/LSGPT/ALT 107.0 IU/LALK PHOS 109.0 IU/LTOTAL PROTEIN 7.90 g/ dLALBUMIN 4.70 g/dLTOTAL BILI 0.50 mg/dLCALCIUM 11.30 mg/dLeGFR 60 TRIGLYCERIDES 673.0 mg/dLCHOLESTEROL 254.0 mg/dLHDL 15.0 mg/dLLDL (CALC) INVALID MG/DLWBC 16.6 RBC 4.37 HGB 13.30 g/dLHCT 41.10 %MCV 94.0 fLMCH 30.40 pgMCHC 32.40 g/dLRDW CV 14.60 %MPV 12.0 fLPLT 344 %NEUT 70.90 %%LYMP 22.70 %% MONO 5.30 %%EOS 0.70 %%BASO 0.40 %#NEUT 11.79 #LYMP 3.77 #MONO 0.88 #EOS 0.11 # BASO 0.06 11/27/2012 1:52 PM COLOR ORANGE APPEARANCE HAZY SPEC GRAV 1.010 pH 5.0 PROTEIN 100 GLUCOSE 250 KETONE TRACE BILIRUBIN NEGATIVE BLOOD NEGATIVE NITRITE NEGATIVE LEUK SCREEN NEGATIVE CASTS/LPF NEGATIVE CRYSTALS NEGATIVE MUCOUS THRDS NEGATIVE BACTERIA NEGATIVE EPITH CELLS FEW SQUAMOUS TRICHOMONAS NEGATIVE YEAST NEGATIVE WBC 20.0 RBC 4.06 HGB 12.90 g/dLHCT 38.90 %MCV 96.0 fLMCH 31.80 pgMCHC 33.20 g/ dLRDW CV 13.50 %MPV 11.70 fLPLT 382 %NEUT 75.10 %%LYMP 16.90 %%MONO 5.0 %%EOS 2.60 %%BASO 0.40 %#NEUT 15.05 #LYMP 3.38 #MONO 1.01 #EOS 0.52 #BASO 0.08 EOS 3.0 %GLUCOSE 146.0 mg/dLSODIUM 139.0 mmol/LPOTASSIUM 5.10 mmol/LCHLORIDE 99.0 mmol/LCO2 27.0 mmol/LBUN 9.0 mg/dLCREATININE 1.0 mg/dLSGOT/AST 77.0 IU/LSGPT/ ALT 94.0 IU/LALK PHOS 84.0 IU/LTOTAL PROTEIN 8.0 g/dLALBUMIN 4.80 g/dLTOTAL BILI 0.50 mg/dLCALCIUM 11.60 mg/dLeGFR 60 01/22/2013 3:52 PM HIV AG/AB COMBO 0.13 03/21/2013 2:27 PM Est Avg Glucose 128.4 mg/dL 03/21/2013 2:37 PM WBC 16.2 RBC 4.14 HGB 13.10 g/dLHCT 39.90 %MCV 96.0 fLMCH 31.60 pgMCHC 32.80 g/dLRDW CV 13.70 %MPV 11.70 fLPLT 371 %NEUT 68.80 %%LYMP 23.30 %%MONO 5.10 %%EOS 2.40 %%BASO 0.40 %#NEUT 11.09 #LYMP 3.77 #MONO 0.83 # EOS 0.39 #BASO 0.07 EOS 4.0 %BASO 1.0 %GLUCOSE 187.0 mg/dLSODIUM 137.0 mmol/ LPOTASSIUM 4.40 mmol/LCHLORIDE 99.0 mmol/LCO2 25.0 mmol/LBUN 7.0 mg/ dLCREATININE 0.80 mg/dLSGOT/AST 94.0 IU/LSGPT/ALT 124.0 IU/LALK PHOS 106.0 IU/ LTOTAL PROTEIN 8.20 g/dLALBUMIN 4.70 g/dLTOTAL BILI 0.60 mg/dLCALCIUM 10.90 mg/ dLeGFR >60 mL/min/1.73 [id number] 45.0 U/L 08/31/2013 10:54 AM GLUCOSE 255.0 mg/dLSODIUM 133.0 mmol/LPOTASSIUM 4.60 mmol/ LCHLORIDE 100.0 mmol/LCO2 20.0 mmol/LBUN 12.0 mg/dLCREATININE 0.80 mg/dLSGOT/ AST 52.0 IU/LSGPT/ALT 87.0 IU/LALK PHOS 118.0 IU/LTOTAL PROTEIN 7.20 g/ dLALBUMIN 4.30 g/dLTOTAL BILI 0.30 mg/dLCALCIUM 9.30 mg/dLeGFR 60 WBC 11.3 RBC 3.96 HGB 12.40 g/dLHCT 37.80 %MCV 96.0 fLMCH 31.30 pgMCHC 32.80 g/dLRDW CV 12.80 %MPV 12.50 fLPLT 242 %NEUT 65.40 %%LYMP 26.60 %%MONO 5.30 %%EOS 2.30 %% BASO 0.40 %#NEUT 7.36 #LYMP 3.00 #MONO 0.60 #EOS 0.26 #BASO 0.05 TRIGLYCERIDES 908.0 mg/dLCHOLESTEROL 243.0 mg/dLHDL 16.0 mg/dLLDL (CALC) INVALID MG/DL 12/12/2013 11:25 AM WBC 12.1 RBC 4.68 HGB 14.30 g/dLHCT 41.30 %MCV 88.0 fLMCH 30.60 pgMCHC 34.60 g/dLRDW CV 13.70 %MPV 12.80 fLPLT 272 %NEUT 65.80 %%LYMP 25.60 %%MONO 4.20 %%EOS 4.10 %%BASO 0.30 %#NEUT 7.97 #LYMP 3.11 #MONO 0.51 #EOS 0.50 #BASO 0.04 GLUCOSE 358.0 mg/dLSODIUM 129.0 mmol/LPOTASSIUM 3.20 mmol/ LCHLORIDE 89.0 mmol/LCO2 23.0 mmol/LBUN 6.0 mg/dLCREATININE 0.70 mg/dLSGOT/AST 34.0 IU/LSGPT/ALT 43.0 IU/LALK PHOS 212.0 IU/LTOTAL PROTEIN 8.30 g/dLALBUMIN 4.10 g/dLTOTAL BILI 0.50 mg/dLCALCIUM 10.10 mg/dLeGFR 60 Est Avg Glucose 323.5 mg/dLTSH 0.30 uIU/mLPROGESTERONE 0.10 ng/mLESTRADIOL 15.0 pg/mLFSH 70.20 mIU/ mLTRIGLYCERIDES 1990.0 mg/dLCHOLESTEROL 362.0 mg/dLHDL 21.0 mg/dLLDL (CALC) INVALID MG/DLHep A Ab, IgM Negative HBsAg Screen Negative Hep B Core Ab, IgM Negative Hep C Virus Ab <0.1 Free Testosterone(Direct) 0.50 pg/mL 02/07/2014 3:55 PM VITAMIN D 31.10 ng/mL 02/27/2014 10:45 AM WBC 14.1 RBC 4.37 HGB 13.20 g/dLHCT 38.70 %MCV 89.0 fLMCH 30.20 pgMCHC 34.10 g/dLRDW CV 13.60 %MPV 11.50 fLPLT 355 %NEUT 71.20 %%LYMP 21.0 %%MONO 4.80 %%EOS 2.80 %%BASO 0.20 %#NEUT 10.03 #LYMP 2.95 #MONO 0.68 #EOS 0.39 #BASO 0.03 EOS 2.0 %WBC 14.1 RBC 4.37 HGB 13.20 g/dLHCT 38.70 %MCV 89.0 fLMCH 30.20 pgMCHC 34.10 g/dLRDW CV 13.60 %MPV 11.50 fLPLT 355 %NEUT 71.20 %% LYMP 21.0 %%MONO 4.80 %%EOS 2.80 %%BASO 0.20 %#NEUT 10.03 #LYMP 2.95 #MONO 0.68 #EOS 0.39 #BASO 0.03 GLUCOSE 105.0 mg/dLSODIUM 134.0 mmol/LPOTASSIUM 5.90 mmol/ LCHLORIDE 98.0 mmol/LCO2 23.0 mmol/LBUN 12.0 mg/dLCREATININE 0.80 mg/dLSGOT/AST 20.0 IU/LSGPT/ALT 37.0 IU/LALK PHOS 123.0 IU/LTOTAL PROTEIN 8.10 g/dLALBUMIN 4.90 g/dLTOTAL BILI 0.30 mg/dLCALCIUM 10.80 mg/dLeGFR 60 TRIGLYCERIDES 905.0 mg/ dLCHOLESTEROL 286.0 mg/dLHDL 27.0 mg/dLLDL (CALC) INVALID MG/DLGLUCOSE 105.0 mg/ dLSODIUM 134.0 mmol/LPOTASSIUM 5.90 mmol/LCHLORIDE 98.0 mmol/LCO2 23.0 mmol/ LBUN 12.0 mg/dLCREATININE 0.80 mg/dLCALCIUM 10.80 mg/dLeGFR 60 Est Avg Glucose 125.5 mg/dL 2014 4:42 PM WBC 16.9 RBC 4.22 HGB 12.80 g/dLHCT 37.40 %MCV 89.0 fLMCH 30.30 pgMCHC 34.20 g/dLRDW CV 13.40 %MPV 11.30 fLPLT 325 %NEUT 69.80 %%LYMP 24.20 %%MONO 3.30 %%EOS 2.40 %%BASO 0.30 %#NEUT 11.76 #LYMP 4.07 #MONO 0.56 # EOS 0.41 #BASO 0.05 WBC 16.9 RBC 4.22 HGB 12.80 g/dLHCT 37.40 %MCV 89.0 fLMCH 30.30 pgMCHC 34.20 g/dLRDW CV 13.40 %MPV 11.30 fLPLT 325 %NEUT 69.80 %%LYMP 24.20 %%MONO 3.30 %%EOS 2.40 %%BASO 0.30 %#NEUT 11.76 #LYMP 4.07 #MONO 0.56 # EOS 0.41 #BASO 0.05 MAGNESIUM 1.40 mg/dLGLUCOSE 104.0 mg/dLSODIUM 133.0 mmol/ LPOTASSIUM 4.70 mmol/LCHLORIDE 98.0 mmol/LCO2 22.0 mmol/LBUN 10.0 mg/ dLCREATININE 0.70 mg/dLSGOT/AST 28.0 IU/LSGPT/ALT 50.0 IU/LALK PHOS 119.0 IU/ LTOTAL PROTEIN 8.0 g/dLALBUMIN 4.60 g/dLTOTAL BILI 0.20 mg/dLCALCIUM 10.0 mg/ dLeGFR 60 03/18/2014 2:46 PM VITAMIN D 38.60 ng/mL 06/06/2014 12:10 PM INFLUENZA A & B NO INFLUENZA A OR B DETECTED GLUCOSE 159.0 mg/dLSODIUM 132.0 mmol/LPOTASSIUM 4.50 mmol/LCHLORIDE 100.0 mmol/LCO2 23.0 mmol/ LBUN 11.0 mg/dLCREATININE 0.70 mg/dLSGOT/AST 29.0 IU/LSGPT/ALT 45.0 IU/LALK PHOS 150.0 IU/LTOTAL PROTEIN 8.50 g/dLALBUMIN 4.90 g/dLTOTAL BILI 0.40 mg/ dLCALCIUM 10.60 mg/dLeGFR >60 mL/min/1.73 [id number] 369.0 mg/ dLCHOLESTEROL 153.0 mg/dLHDL 26.0 mg/dLLDL (CALC) 53.0 mg/dLPHOSPHORUS 3.20 mg/ dLTSH 0.180 uIU/mLWBC 16.1 RBC 4.86 HGB 14.50 g/dLHCT 43.30 %MCV 89.0 fLMCH 29.80 pgMCHC 33.50 g/dLRDW CV 13.10 %MPV 11.70 fLPLT 367 %NEUT 60.30 %%LYMP 32.20 %%MONO 3.90 %%EOS 3.40 %%BASO 0.20 %#NEUT 9.69 #LYMP 5.18 #MONO 0.62 #EOS 0.55 #BASO 0.04 EOS 1.0 %VITAMIN B12 352.0 pg/mLVITAMIN D >96.0 ng/mL 08/30/2014 1:42 PM C DIFFICILE NAAT NEGATIVE 09/25/2014 3:38 PM WBC 19.7 RBC 4.70 HGB 14.50 g/dLHCT 42.20 %MCV 90.0 fLMCH 30.90 pgMCHC 34.40 g/dLRDW CV 13.0 %MPV 11.50 fLPLT 392 LIPASE 46.0 U/LGLUCOSE 116.0 mg/dLSODIUM 134.0 mmol/LPOTASSIUM 4.60 mmol/LCHLORIDE 98.0 mmol/LCO2 26.0 mmol/LBUN 10.0 mg/dLCREATININE 0.80 mg/dLSGOT/AST 49.0 IU/LSGPT/ALT 74.0 IU/ LALK PHOS 95.0 IU/LTOTAL PROTEIN 8.50 g/dLALBUMIN 4.0 g/dLTOTAL BILI 0.30 mg/ dLCALCIUM 10.70 mg/dLeGFR >60 mL/min/1.73 m2 09/27/2014 10:30 AM C DIFFICILE NAAT TNP-FORMED STOOL 10/02/2014 4:01 PM GLUCOSE 124.0 mg/dLSODIUM 135.0 mmol/LPOTASSIUM 4.60 mmol/ LCHLORIDE 99.0 mmol/LCO2 24.0 mmol/LBUN 6.0 mg/dLCREATININE 0.70 mg/dLSGOT/AST 56.0 IU/LSGPT/ALT 94.0 IU/LALK PHOS 106.0 IU/LTOTAL PROTEIN 7.50 g/dLALBUMIN 4.70 g/dLTOTAL BILI 0.40 mg/dLCALCIUM 10.40 mg/dLeGFR >60 mL/min/1.73 m2WBC 16.1 RBC 4.62 HGB 14.0 g/dLHCT 41.70 %MCV 90.0 fLMCH 30.30 pgMCHC 33.60 g/dLRDW CV 13.20 %MPV 11.90 fLPLT 391 %NEUT 51.30 %%LYMP 38.30 %%MONO 5.80 %%EOS 4.20 %% BASO 0.40 %#NEUT 8.25 #LYMP 6.15 #MONO 0.93 #EOS 0.67 #BASO 0.06 EOS 5.0 %ATYP LYMPHS FEW 10/23/2014 12:35 PM WBC 15.2 RBC 4.59 HGB 13.90 g/dLHCT 41.60 %MCV 91.0 fLMCH 30.30 pgMCHC 33.40 g/dLRDW CV 13.60 %MPV 11.10 fLPLT 375 %NEUT 59.30 %%LYMP 30.40 %%MONO 5.30 %%EOS 4.60 %%BASO 0.40 %#NEUT 9.00 #LYMP 4.61 #MONO 0.80 #EOS 0.69 #BASO 0.06 GLUCOSE 112.0 mg/dLSODIUM 138.0 mmol/LPOTASSIUM 4.10 mmol/ LCHLORIDE 104.0 mmol/LCO2 23.0 mmol/LBUN 7.0 mg/dLCREATININE 0.70 mg/dLSGOT/AST 38.0 IU/LSGPT/ALT 60.0 IU/LALK PHOS 85.0 IU/LTOTAL PROTEIN 8.0 g/dLALBUMIN 4.60 g/dLTOTAL BILI 0.30 mg/dLCALCIUM 10.0 mg/dLeGFR >60 mL/min/1.73 g2MZFEH YELLOW APPEARANCE CLEAR SPEC GRAV 1.010 pH 5.5 PROTEIN NEGATIVE GLUCOSE NEGATIVE KETONE NEGATIVE BILIRUBIN NEGATIVE BLOOD NEGATIVE NITRITE NEGATIVE LEUK SCREEN NEGATIVE Est Avg Glucose 134.1 mg/dLMICROALBUMIN UR <0.5 MG/DL 02/13/2015 4:38 PM RMSF, IgG, EIA Negative [facility] Spotted Fever,IgM 0.51 E. chaffeensis (HME) IgGTiter Negative titer 02/20/2015 8:20 AM WBC 26.1 RBC 4.66 HGB 13.80 g/dLHCT 41.70 %MCV 90.0 fLMCH 29.60 pgMCHC 33.10 g/dLRDW CV 14.70 %MPV 11.30 fLPLT 414 GLUCOSE 121.0 mg/ dLSODIUM 134.0 mmol/LPOTASSIUM 3.90 mmol/LCHLORIDE 98.0 mmol/LCO2 27.0 mmol/ LBUN 9.0 mg/dLCREATININE 0.70 mg/dLSGOT/AST 20.0 IU/LSGPT/ALT 41.0 IU/LALK PHOS 111.0 IU/LTOTAL PROTEIN 7.20 g/dLALBUMIN 4.10 g/dLTOTAL BILI 0.20 mg/dLCALCIUM 9.80 mg/dLeGFR >60 mL/min/1.73mTRIGLYCERIDES 773.0 mg/dLCHOLESTEROL 303.0 mg/ dLHDL 36.0 mg/dLLDL 188.0 mg/dLTSH 0.660 uIU/mLVITAMIN D 45.50 ng/mL 04/29/2015 3:38 PM INFLUENZA A & B NO INFLUENZA A OR B DETECTED 05/20/2015 1:55 PM WBC 16.4 RBC 4.60 HGB 13.90 g/dLHCT 41.70 %MCV 91.0 fLMCH 30.20 pgMCHC 33.30 g/dLRDW CV 13.70 %MPV 11.70 fLPLT 343 %NEUT 60.70 %%LYMP 30.90 %%MONO 4.80 %%EOS 3.40 %%BASO 0.20 %#NEUT 9.96 #LYMP 5.06 #MONO 0.79 #EOS 0.55 #BASO 0.04 GLUCOSE 125.0 mg/dLSODIUM 140.0 mmol/LPOTASSIUM 3.90 mmol/ LCHLORIDE 107.0 mmol/LCO2 22.0 mmol/LBUN 7.0 mg/dLCREATININE 1.0 mg/dLSGOT/AST 23.0 IU/LSGPT/ALT 30.0 IU/LALK PHOS 78.0 IU/LTOTAL PROTEIN 7.10 g/dLALBUMIN 4.30 g/dLTOTAL BILI 0.40 mg/dLCALCIUM 9.80 mg/dLeGFR >60 mL/min/1.73m 05/21/2015 12:35 PM D-DIMER QUANT <0.19 History Of Immunizations Name Date Admin Mfg Name Mfg Code Trade Name Lot# Route Inj Vis Given Vis Pub CVX Influenza 03/30/2011 Not Entered NE Not Entered Not Entered Not Entered 03/31/2011 05/30/2015 141 Influenza 04/24/2014 sanofi pasteur PMC Fluzone [id number] Intramuscular Left Upper Arm 02/27/2014 01/15/2014 141 Influenza 02/13/2015 sanofi pasteur PMC Fluzone [id number] Intramuscular Left Deltoid 02/13/2015 01/03/2015 140 History of Past Illness Name Date of [...] 2010 8:33AM Bursitis Jul 06 2010 8:33AM Myofascial pain Jul 23 2010 10:30AM Spinal [...] Muscle Spasm Jul 05 2011 1:58PM Headache Jun 9 2011 1:38PM Heart Sound Abnormality Feb [...] 2015 10:08AM Adacel Jun 06 2015 11:31AM Payers Insurance Name Company Name Plan Name Plan Number Policy Number Policy Group Number Start Date Medicare Part A Medicare Part A [id number] N/A [facility] - Community Plan [facility] RHC Comm [id number] N/A [place] [employer] - R[place] [employer] - C [id number] [facility] Comm Plan of [id number] Wednesday, 2012 Medicare Part B Medicare [place] [id number] Monday, 2000 [place] Medical Assistance [facility] Medical Assistance Prog [id number] Tuesday, 2009 History of Encounters Visit Date Visit Type Provider 06/06/2015 Office visit Heena Dumont MD 06/06/2015 Office visit Kaylynn Mendez [employer]ER[employer] 06/02/2015 Office visit Kaylynn Mendez [employer]SEHOLD RE[employer]IGERATION MECH[employer]IC 05/26/2015 Office visit Kaylynn Mendez HOUSEHOLD RE[employer]IGERATION MECH[employer]IC 05/20/2015 Office visit Kaylynn Mendez HOUSEHOLD REFRIGERATION MECHANIC 05/08/2015 Office visit Heena Dumont MD 05/06/2015 Office visit Kaylynn Mendez HOUSEHOLD REFRIGERATION MECHANIC 04/29/2015 Office visit Kaylynn Mendez HOUSEHOLD REFRIGERATION MECHANIC 03/27/2015 Voided Brittni Yanez [employer]SEHOLD RE[employer]IGERATION MECH[employer]IC 03/21/2015 Office visit Heena Dumont MD 03/12/2015 Office visit Kaylynn Mendez HOUSEHOLD RE[employer]IGERATION MECHANIC 02/26/2015 Office visit Brittni Yanez HOUSEHOLD REFRIGERATION MECHANIC 02/13/2015 Office visit Heena Dumont MD 01/15/2015 Office visit Brittni Yanez [employer]SEHOLD RE[employer]IGERATION MECHANIC 01/13/2015 Office visit Heena Dumont MD 01/08/[address] Carol Fowler MD 01/01/2015 Office visit Brittni Yanez [employer]SEHOLD RE[employer]IGERATION MECH[employer]IC 12/13/2014 Office visit Heena Dumont MD 11/27/2014 Office visit Kaylynn Mendez [employer]SEHOLD RE[employer]IGERATION MECHANIC 11/14/2014 Office visit Heena Dumont MD 10/18/2014 Office visit Heena Dumont MD 10/17/2014 Hospital John Hoskins MD 10/09/2014 Office visit Heena Dumont MD 09/25/2014 Office visit Heena Dumont MD 09/17/2014 Office visit Kaylynn Mendez [employer]SEHOLD RE[employer]IGERATION MECH[employer]IC 09/04/2014 Office visit Heena Dumont MD 08/28/2014 Office visit Kaylynn Mendez HOUSEHOLD REFRIGERATION MECHANIC 08/23/2014 [facility] John Hoskins MD 08/01/2014 Office visit Kaylynn Mendez [employer]SEHOLD RE[employer]IGERATION MECH[employer]IC 07/29/2014 Office visit Heena Dumont MD 07/25/2014 Nurse visit Heena Dumont MD 07/17/2014 Office visit Kaylynn Mendez [employer]HOLD [employer]ER[employer] MECH[employer]IC 07/11/2014 Office visit Heena Dumont MD 07/01/2014 Office visit Heena Dumont MD 06/25/2014 Office visit Kaylynn Mendez HOUSEHOLD REFRIGERATION MECHANIC 06/12/2014 Office visit Kaylynn Mendez HOUSEHOLD REFRIGERATION MECHANIC 06/06/2014 Office visit Kaylynn Mendez HOUSEHOLD REFRIGERATION MECHANIC 05/27/2014 Office visit Heena Dumont MD 04/20/2014 Office visit Yesica Falcon [employer]HOLD RE[employer]IGERATION MECHANIC 03/29/2014 Office visit Na Jones [employer]SEHOLD REFRIGERATION MECHANIC 03/15/2014 Office visit Heena Dumont MD 2014 Office visit Heena Dumont MD 2014 [facility] John Hoskins MD 02/27/2014 Nurse visit Heena Dumont MD 02/13/2014 Office visit Lena El [employer]HOLD RE[employer]ERATION MECH[employer]IC 02/07/2014 Office visit Heena Dumont MD 02/03/2014 Office visit Na Jones [employer]SEHOLD RE[employer]IGERATION MECHANIC 01/30/2014 Office visit Kaylynn Mendez HOUSEHOLD REFRIGERATION MECHANIC 01/24/2014 Office visit Sundeep Russell [employer]SEHOLD RE[employer]IGERATION MECHANIC 01/16/2014 Office visit Kaylynn Mendez HOUSEHOLD REFRIGERATION MECHANIC 01/10/2014 Nurse visit Kaylynn Mendez HOUSEHOLD REFRIGERATION MECHANIC 01/08/2014 Office visit Kaylynn Mendez HOUSEHOLD REFRIGERATION MECHANIC 12/05/2013 Office visit Kaylynn Walker [employer]SEHOLD RE[employer]IGERATION MECHANIC 11/21/2013 Office visit Kaylynn Mendez HOUSEHOLD REFRIGERATION MECHANIC 10/23/2013 Office visit Brittni Yanez HOUSEHOLD REFRIGERATION MECHANIC 10/17/2013 Nurse visit Heena Dumont MD 10/12/2013 Office visit Kaylynn Mendez HOUSEHOLD REFRIGERATION MECHANIC 10/02/2013 Office visit Heena Dumont MD 09/20/2013 Nurse visit Kaylynn Mendez HOUSEHOLD REFRIGERATION MECHANIC 09/20/2013 Voided Heena Dumont MD 09/14/2013 Office visit Kaylynn Mendez HOUSEHOLD REFRIGERATION MECHANIC 09/05/2013 Office visit Sundeep Russell HOUSEHOLD REFRIGERATION MECHANIC 09/04/2013 Nurse visit Kaylynn Walker HOUSEHOLD REFRIGERATION MECHANIC 08/31/2013 Office visit Kaylynn Walker HOUSEHOLD REFRIGERATION MECHANIC 08/23/2013 Office visit Heena Dumont MD 08/10/2013 Office visit Kaylynn Walker HOUSEHOLD REFRIGERATION MECHANIC 07/25/2013 Office visit Kaylynn Walker HOUSEHOLD REFRIGERATION MECHANIC 07/18/2013 Office visit Kaylynn Walker HOUSEHOLD REFRIGERATION MECHANIC 07/12/2013 Office visit Kaylynn Walker HOUSEHOLD REFRIGERATION MECHANIC 06/28/2013 Nurse visit Kaylynn Walker HOUSEHOLD REFRIGERATION MECHANIC 06/14/2013 Nurse visit Kaylynn Walker HOUSEHOLD REFRIGERATION MECHANIC 06/08/2013 Nurse visit Kaylynn Walker HOUSEHOLD REFRIGERATION MECHANIC 05/31/2013 Nurse visit Chadd Norris DO 05/18/2013 Office visit Terese Davidson MD 05/16/2013 Office visit Kaylynn Walker [employer]SEHOLD RE[employer]IGERATION MECHANIC 05/09/2013 Office visit Kaylynn Walker HOUSEHOLD REFRIGERATION MECHANIC 04/29/2013 [facility] John Hoskins MD 04/25/2013 Nurse visit Kaylynn Walker HOUSEHOLD REFRIGERATION MECHANIC 04/17/2013 Office visit Kaylynn Walker HOUSEHOLD REFRIGERATION MECHANIC 04/03/2013 Nurse visit Kaylynn Walker HOUSEHOLD REFRIGERATION MECHANIC 04/03/2013 Office visit Terese Davidson MD 03/28/2013 Office visit Sundeep Russell HOUSEHOLD REFRIGERATION MECHANIC 03/21/2013 Office visit Kaylynn Mendez HOUSEHOLD REFRIGERATION MECHANIC 03/20/2013 Office visit Terese Davidson MD 03/14/2013 Nurse visit Kaylynn Walker [employer]SEHOLD REFRIGERATION MECHANIC 03/05/2013 Nurse visit Kaylynn Mendez HOUSEHOLD REFRIGERATION MECHANIC 02/19/2013 Office visit Terese Davidson MD 02/16/2013 Nurse visit Kaylynn Walker HOUSEHOLD REFRIGERATION MECHANIC 02/09/2013 Office visit Sundeep Russell HOUSEHOLD REFRIGERATION MECHANIC 02/08/2013 Nurse visit Kaylynn Walker HOUSEHOLD REFRIGERATION MECHANIC 02/01/2013 Nurse visit Kaylynn Walker HOUSEHOLD REFRIGERATION MECHANIC 01/26/2013 Nurse visit Sabrina Mendez SNOWBLOWER MECHANIC 01/25/2013 Office visit Kaylynn Walker HOUSEHOLD RE[employer]IGERATION MECHANIC 01/22/2013 Office visit Yoan Castaneda MD 01/18/2013 Nurse visit Kaylynn Walker [employer]HOLD RE[employer]IGERATION MECHANIC 01/11/2013 Nurse visit Kaylynn Walker HOUSEHOLD REFRIGERATION MECHANIC 01/05/2013 Nurse visit Kaylynn Walker HOUSEHOLD REFRIGERATION MECHANIC 12/29/2012 Office visit Kaylynn Walker HOUSEHOLD REFRIGERATION MECHANIC 11/27/2012 Office visit Kaylynn Walker HOUSEHOLD REFRIGERATION MECHANIC 11/08/2012 Office visit Odell Tierney MD 11/08/2012 Voided Odell Tierney MD 11/07/2012 Office visit Kaylynn Mendez HOUSEHOLD REFRIGERATION MECHANIC 10/31/2012 [facility] John Hoskins MD 10/31/2012 Office visit Kaylynn Walker HOUSEHOLD RE[employer]IGERATION MECHANIC 10/19/2012 Office visit Genoveva Ayala [employer]SEHOLD REFRIGERATION MECHANIC 10/10/2012 Office visit Kaylynn Mendez HOUSEHOLD REFRIGERATION MECHANIC 10/03/2012 Office visit Kaylynn Mendez HOUSEHOLD REFRIGERATION MECHANIC 09/26/2012 Office visit Kaylynn Mendez HOUSEHOLD REFRIGERATION MECHANIC 09/06/2012 Office visit Kaylynn Mendez HOUSEHOLD REFRIGERATION MECHANIC 09/06/2012 Office visit Odell Tierney MD 08/31/2012 Voided Kaylynn Mendez [employer]HOLD RE[employer]IGERATION MECHANIC 07/28/2012 Office visit Kaylynn Andrea [employer]HOLD RE[employer]IGERATION MECHANIC 07/27/2012 Office visit David Ar DO 07/20/2012 Hospital David Joyner DO 07/13/2012 [facility] David Joyner DO 07/11/2012 Office visit Kaylynn Mendez HOUSEHOLD REFRIGERATION MECHANIC 06/27/2012 [facility] Odell Tierney MD 06/21/2012 Office visit David Joyner DO 06/21/2012 Office visit Odell Tierney MD 06/20/2012 Office visit Brittni Yanez [employer]SEHOLD RE[employer]IGERATION MECH[employer]IC 06/06/2012 Office visit Odell Tierney MD 05/03/2012 Office visit Kaylynn Mendez HOUSEHOLD REFRIGERATION MECHANIC 04/28/2012 Office visit Brittni Yanez HOUSEHOLD REFRIGERATION MECHANIC 04/11/2012 Office visit Kaylynn Mendez HOUSEHOLD REFRIGERATION MECHANIC 04/06/2012 [facility] John Hoskins MD 03/30/2012 Office visit Kaylynn Mendez HOUSEHOLD REFRIGERATION MECHANIC 03/15/2012 Office visit Kaylynn Mendez HOUSEHOLD REFRIGERATION MECHANIC 03/15/2012 Office visit Odell Tierney MD 02/09/2012 Office visit Kaylynn Mendez HOUSEHOLD REFRIGERATION MECHANIC 12/23/2011 Office visit Kaylynn Mendez HOUSEHOLD REFRIGERATION MECHANIC 11/02/2011 Office visit Kaylynn Mendez HOUSEHOLD REFRIGERATION MECHANIC 10/14/2011 Office visit Kaylynn Mendez HOUSEHOLD REFRIGERATION MECHANIC 09/27/2011 Office visit Kaylynn Mendez HOUSEHOLD REFRIGERATION MECHANIC 08/19/2011 Hospital John Hoskins MD 08/18/2011 Hospital John Hoskins MD 08/18/2011 Office visit Kaylynn Mendez HOUSEHOLD REFRIGERATION MECHANIC 08/02/2011 Office visit Kaylynn Walker [employer]SEHOLD REFRIGERATION MECHANIC 07/08/2011 Office visit Kaylynn Mendez HOUSEHOLD REFRIGERATION MECHANIC 07/05/2011 Office visit Odell Tierney MD 06/15/2011 Office visit Kaylynn Mendez HOUSEHOLD REFRIGERATION MECHANIC 05/14/2011 Office visit Kaylynn Mendez HOUSEHOLD REFRIGERATION MECHANIC 05/11/2011 Office visit Odell Tierney MD 04/28/2011 Office visit Kaylynn Mendez HOUSEHOLD REFRIGERATION MECHANIC 03/02/2011 Office visit Chadd Norris DO 02/17/2011 [...] visit Odell Tierney MD 03/18/2010 Office visit Oedll Tierney MD 02/06/2010 Office visit Vickie STEIN 02/04/2010 Surgery Yoan Castaneda MD 01/29/2010 Office visit Hillary RITCHIE 12/23/2009 Surgery Yoan Castaneda MD 12/16/2009 Surgery Yoan Castaneda MD 12/10/2009 Office visit Odell Tierney MD 11/26/2009 Office visit Yoan Castaneda MD 11/17/2009 Office visit Odell Tierney MD 11/10/2009 Office visit Chadd Norris DO
--- OUTSIDE RECORDS SUMMARY | 2018-05-09 15:29 | XMS REPORT ---
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 uuijidip-zozhujshi-BY 3.5-10,000-1 mg/mL-unit/mL-% otic drops,suspension 201607/23/2016 instill 4 [...] Reviewed 04/28/2011 12:00 AM Decadron 1 mg ND#[id number] (Jr) Reviewed 04/28/2011 12:00 AM Depo-Medrol 80 mg ND#[id number]-Bcyozhjm Reviewed 09/02/2015 12:00 AM Toradol 60 Mg NDC#4285-2540-76 Reviewed 09/02/2015 12:00 AM Phenergan, Up to 50 Mg RHC Medicaid Reviewed 09/16/2015 12:00 AM Toradol 60 Mg ND#5385-8164-34 Reviewed 09/16/2015 12:00 AM Phenergan Up to 50 mg RHC Medicare Reviewed 05/11/2011 12:00 AM N BLOCK INJ OCCIPITAL Reviewed 05/11/2011 12:00 AM Kenalog Fe-[address]-20 ANNA Reviewed 11/13/2015 12:00 AM ASSAY OF [...] INJ SC/IM Reviewed 07/08/2011 12:00 AM Toradol,15mg [facility]#[id number], [place] Reviewed 07/08/2011 12:00 AM Phenergan 50 Mg Im Nd 0038-8484-21 [place] Reviewed 01/21/2016 12:00 AM ECG MONIT/REPRT UP TO 48 HRS Returned 08/02/2011 12:00 AM THER/PROPH/DIAG INJ SC/IM Reviewed 08/02/2011 12:00 AM Decadron 1 mg [facility]#[id number] (Jr) Reviewed 08/02/2011 12:00 AM Depo-Medrol 80 mg [facility]#[id number]-Jxhuvnsf Reviewed 03/05/2016 12:00 AM COMPLETE CBC W/AUTO DIFF WBC Reviewed 03/05/2016 12:00 AM STREP A ASSAY W/OPTIC Reviewed 03/05/2016 12:00 AM C-REACTIVE PROTEIN Reviewed 03/18/2016 12:00 AM [facility] MEDICARE - flu vaccine administration Reviewed 03/18/2016 [...] Reviewed 09/27/2011 12:00 AM Depo-Medrol 80 mg ND#[id number]-Izepojql Reviewed 09/27/2011 12:00 AM Depo-Medrol 40 mg ND#[id number] Reviewed 07/06/2016 12:00 AM CHEST X-RAY 4/> [...] Reviewed 12/23/2011 12:00 AM Decadron 1 mg NDC#[id number] (Jr) Reviewed 12/23/2011 12:00 AM Depo-Medrol 80 mg NDC#[id number]-Uhsshxwf Reviewed 11/02/2016 11:45 AM URINALYSIS AUTO W/O [...] Reviewed 02/09/2012 12:00 AM Decadron 1 mg NDC#[id number] (Jr) Reviewed 02/09/2012 12:00 AM Depo-Medrol 80 mg NDC#[id number]-Rxrbwepe Reviewed 02/21/2017 12:00 AM CULTURE OTHR SPECIMN AEROBIC Returned 02/21/2017 12:00 AM INFLUENZA ASSAY W/OPTIC Returned 02/23/2017 12:00 AM COMPLETE CBC W/AUTO DIFF WBC Reviewed 02/23/2017 12:00 AM X-RAY EXAM OF KNEE 3 Returned 03/15/2012 12:00 AM N BLOCK INJ OCCIPITAL Reviewed 03/15/2012 12:00 AM Kenalog Qk-[address]-20 ANNA Reviewed 04/11/2012 12:00 AM COMPLETE CBC [...] 06/20/2012 12:00 AM Decadron, Per 1 Mg [facility]# [address]-84 Reviewed 06/20/2012 12:00 AM Depo-Medrol, Per 80 Mg [facility]#8069-2871-83 Reviewed 09/06/2017 12:00 AM RADEX FOOT COMPLETE MINIMUM 3 VIEWS Returned 09/06/2017 12:00 AM X-RAY EXAM RIBS UNI 2 VIEWS Returned 08/15/2017 12:00 AM COMPLETE CBC W/AUTO DIFF WBC Returned 08/15/2017 12:00 AM COMPREHEN METABOLIC PANEL Returned 08/15/2017 12:00 AM URINALYSIS AUTO W/SCOPE Returned 09/06/2012 12:00 AM N BLOCK INJ OCCIPITAL Reviewed 09/06/2012 12:00 AM Kenalog Ae-[address]-20 ANNA Reviewed 09/06/2012 12:00 AM X-RAY EXAM RIBS UNI 2 VIEWS Reviewed 09/26/2012 12:00 AM THER/PROPH/DIAG INJ SC/IM Reviewed 09/26/2012 12:00 AM Decadron, Per 1 Mg ND# [address]-37 Reviewed 09/26/2012 12:00 AM Depo-Medrol, Per 80 Mg ND#4002-9673-98 Reviewed 10/03/2012 12:00 AM URINALYSIS AUTO W/O SCOPE Reviewed 10/03/2012 12:00 AM THER/PROPH/DIAG INJ SC/IM Reviewed 10/03/2012 12:00 AM Toradol 60 Mg ND#8309-6896-33 Reviewed 10/03/2012 12:00 AM Phenergan, 25Mg ND#8600-4664-86 Reviewed 10/19/2012 12:00 AM N BLOCK INJ OCCIPITAL Reviewed 10/19/2012 12:00 AM Kenalog, Per 10 Mg ND#3322-6586-56 Reviewed 10/19/2012 12:00 AM Toradol 30 Mg ND#2117-8580-03 Reviewed 10/19/2012 12:00 AM THER/PROPH/DIAG INJ SC/IM Reviewed 10/31/2012 12:00 AM COMPLETE CBC W/AUTO DIFF WBC Reviewed 10/31/2012 12:00 AM COMPREHEN METABOLIC PANEL Reviewed 10/31/2012 12:00 AM LIPID PANEL Reviewed 10/31/2012 12:00 AM ELECTROCARDIOGRAM COMPLETE Reviewed 11/03/2012 12:[address] THORAX W/O & W/DYE Reviewed 11/08/2012 12:00 AM N BLOCK INJ OCCIPITAL Reviewed 11/08/2012 12:00 AM Kenalog Jc-[address]-20 ANNA Reviewed 11/27/2012 12:00 AM COMPLETE CBC [...] 01/25/2013 12:00 AM Decadron, Per 1 Mg [facility]# [address]-98 Reviewed 01/25/2013 12:00 AM Depo-Medrol, Per 80 Mg [facility]#4925-7464-19 Reviewed 01/26/2013 12:00 AM IMMUNOTHERAPY ONE INJECTION [...] 05/16/2013 12:00 AM Decadron, Per 1 Mg [facility]# [address]-46 Reviewed 05/16/2013 12:00 AM Depo-Medrol, Per 80 Mg [facility]#2043-6834-78 Reviewed 05/31/2013 12:00 AM IMMUNOTHERAPY INJECTIONS Reviewed 06/08/2013 12:00 AM IMMUNOTHERAPY INJECTIONS Reviewed 06/14/2013 12:00 AM IMMUNOTHERAPY INJECTIONS Reviewed 06/28/2013 12:00 AM IMMUNOTHERAPY INJECTIONS Reviewed 07/12/2013 12:00 AM X-RAY EXAM RIBS UNI 2 VIEWS Reviewed 07/18/2013 12:00 AM Toradol 60 Mg [facility]#[address]-97 Reviewed 07/18/2013 12:00 AM THER/PROPH/DIAG INJ SC/IM Reviewed 08/23/2013 12:00 AM COMPLETE CBC W/AUTO DIFF WBC Reviewed 08/23/2013 12:00 AM COMPREHEN METABOLIC PANEL Reviewed 08/23/2013 12:00 AM LIPID PANEL Reviewed 08/31/2013 12:00 AM X-RAY EXAM OF LOWER LEG Reviewed 09/04/2013 12:00 AM IMMUNOTHERAPY INJECTIONS Reviewed 09/14/2013 12:00 AM THER/PROPH/DIAG INJ SC/IM Reviewed 09/14/2013 12:00 AM Decadron, Per 1 Mg [facility]# [address]-05 Reviewed 09/14/2013 12:00 AM Depo-Medrol, Per 80 Mg [facility]#9280-3186-45 Reviewed 09/20/2013 12:00 AM IMMUNOTHERAPY INJECTIONS Reviewed [...] BLOCK INJ OCCIPITAL Reviewed 12/10/2009 12:00 AM Quentin Pq-[address]-20 ANNA Reviewed 12/16/2009 12:00 AM HIV-1ANTIBODY Reviewed 12/16/2009 12:00 AM COMPLETE CBC W/AUTO DIFF WBC Reviewed 12/16/2009 12:00 AM METABOLIC PANEL TOTAL CA Reviewed 12/16/2009 12:00 AM Type and screen Reviewed 12/16/2009 12:00 AM PROTHROMBIN TIME Reviewed 12/16/2009 12:00 AM THROMBOPLASTIN TIME PARTIAL Reviewed 03/18/2010 12:00 AM DRAIN/INJ JOINT/BURSA W/O US Reviewed 03/18/2010 12:00 AM Kenalog Rk-[address]-20 ANNA Reviewed 11/21/2013 12:00 AM RADEX HAND MINIMUM 3 VIEWS Reviewed 06/03/2010 12:00 AM INJ TRIGGER POINT 1/2 MUSCL Reviewed 06/03/2010 12:00 AM Kenalog per 10Mg Im-[facility]#[address]-80(Niall) Reviewed 12/05/2013 12:00 AM COMPLETE CBC W/AUTO [...] Reviewed 07/23/2010 12:00 AM Kenalog per 10Mg Im-[facility]#[address]-20(Niall) Reviewed 2014 12:00 AM COMPLETE CBC W/AUTO [...] INJ OCCIPITAL Reviewed 10/01/2010 12:00 AM Kenalog Ty-[address]-20 ANNA Reviewed 07/25/2014 12:00 AM THER/PROPH/DIAG INJ [...] 141 Influenza 04/24/2014 sanofi pasteur PMC FLUZONE [id number] Intramuscular Left Upper Arm 02/27/2014 01/15/2014 141 Influenza 02/13/2015 sanofi pasteur PMC FLUZONE [id number] Intramuscular Left Deltoid 02/13/2015 01/03/2015 140 Tdap 06/06/2015 [employer] SKB BOOSTRIX [id number] Intramuscular Left Deltoid 06/06/2015 07/23/2014 115 Influenza 03/18/2016 sanofi pasteur PMC FLUZONE [id number] Intramuscular Left Deltoid 03/17/2016 01/03/2015 141 History [...] Number Start Date Medicare RHC Medicare RHC [id number] N/A [facility] Comm [id number] N/A Medicare Part A Medicare - Lab/Xray [id number] N/A Medicare Part B Medicare Of [place] [id number] Monday, February 28, 2000 [place] [employer] [place]g [id number] Tuesday, November 10, 2009 Medicare Part A Medicare Part A [id number] N/A [place] Portfolio Administrator Prog - RHC [place] Portfolio Administrator Prog - RHC [id number] [facility] Comm Plan of [id number] Wednesday, May 30, 2012 History of Encounters Visit Date Visit Type Provider 09/14/2017 Office visit Heena Dumont MD 09/06/2017 Office visit Kaylynn Mendez APRN 08/15/2017 Office visit Heena Dumont MD 07/18/2017 Office visit Heena Dumont MD 06/28/2017 Office visit 06/28/2017 Office visit Lena El MATE CHIEF 06/24/2017 Office visit Sundeep Russell MATE CHIEF 06/02/2017 Office visit Heena Dumont MD 04/20/2017 Office visit 04/20/2017 Office visit 04/20/2017 Office visit 04/20/2017 Office visit Heena Dumont MD 03/22/2017 Office visit Heena Dumont MD 03/05/2017 Office visit Lena Chaves MATE CHIEF 02/23/2017 Office visit Symone PolkBarbara Marie MATE CHIEF 02/21/2017 Office visit Heena Dumont MD 02/15/2017 Office visit Heena Dumont MD 02/02/2017 Office visit Heena Dumont MD 01/07/2017 Office visit Riccardo Cardoza MD 01/03/2017 Office visit Heena Dumont MD 12/15/2016 Office visit Kaylynn Mendez MATE CHIEF 12/02/2016 Office visit Heena Dumont MD 11/23/2016 [facility] Eliseo Hoskins MD 11/23/2016 Office visit Kaylynn Mendez MATE CHIEF 11/17/2016 Office visit Kaylynn Mendez MATE CHIEF 11/05/2016 Office visit Riccardo Cardoza MD 11/02/2016 Office visit Heena Dumont MD 10/06/2016 Office visit Kaylynn Mendez MATE CHIEF 09/22/2016 Office visit Heena Dumont MD 09/09/2016 Office visit Kaylynn Mendez MATE CHIEF 08/27/2016 Office visit Riccardo Cardoza MD 08/26/2016 Office visit Heena Dumont MD 07/09/2016 Office visit Riccardo Cardoza MD 07/06/2016 Office visit Heena Dumont MD 06/18/2016 Office visit Kaylynn Mendez MATE CHIEF 06/07/2016 Office visit Sundeep Russell MATE CHIEF 06/04/2016 Office visit Heena Dumont MD 05/13/2016 Office visit Heena Dumont MD 05/03/2016 Office visit Heena Dumont MD 04/26/2016 Office visit Kaylynn Mendez MATE CHIEF 04/14/2016 Office visit Heena Dumont MD 04/13/2016 Office visit Kaylynn Mendez MATE CHIEF 04/02/2016 Office visit Lena El MATE CHIEF 04/02/2016 Office visit Heena Dumont MD 03/26/2016 Office visit Yesica Falcon MATE CHIEF 03/17/2016 Office visit Heena Dumont MD 03/05/2016 Office visit Kaylynn Mendez MATE CHIEF 02/16/2016 Office visit Heena Dumont MD 02/14/2016 Office visit Na Jones MATE CHIEF 01/16/2016 Office visit Heena Dumont MD 12/16/2015 Office visit Heena Dumont MD 11/24/2015 Office visit Kaylynn Mendez MATE CHIEF 11/18/2015 Office visit Heena Dumont MD 11/03/2015 Office visit Sundeep Russell MATE CHIEF 10/20/2015 Office visit Kaylynn Mendez MATE CHIEF 09/23/2015 Office visit Kaylynn Mendez MATE CHIEF 09/16/[address] Pepe Figueroa MD 09/02/2015 Office visit Kaylynn Mendez MATE CHIEF 09/01/2015 Office visit Kaylynn Mendez MATE CHIEF 07/30/2015 Office visit Heena Dumont MD 07/15/2015 Office visit Kaylynn Mendez MATE CHIEF 07/04/2015 Office visit Heena Dumont MD 06/06/2015 Office visit Heena Dumont MD 06/06/2015 Office visit Kaylynn Mendez MATE CHIEF 06/02/2015 Office visit Kaylynn Mendez MATE CHIEF 05/26/2015 Office visit Kaylynn Mendez MATE CHIEF 05/20/2015 Office visit Kaylynn Mendez MATE CHIEF 05/08/2015 Office visit Heena Dumont MD 05/06/2015 Office visit Kaylynn Mendez MATE CHIEF 04/29/2015 Office visit Kaylynn Mendez MATE CHIEF 03/27/2015 Voided Brittni Yanez MATE CHIEF 03/21/2015 Office visit Heena Dumont MD 03/12/2015 Office visit Kaylynn Mendez MATE CHIEF 02/26/2015 Office visit Brittni Yanez MATE CHIEF 02/13/2015 Office visit Heena Dumont MD 01/15/2015 Office visit Brittni Yanez MATE CHIEF 01/13/2015 Office visit Heena Dumont MD 01/08/[address] Carol Fowler MD 01/01/2015 Office visit Brittni Yanez MATE CHIEF 12/13/2014 Office visit Heena Dumont MD 11/27/2014 Office visit Kaylynn Mendez MATE CHIEF 11/14/2014 Office visit Heena Dumont MD 10/18/2014 Office visit Heena Dumont MD 10/17/2014 [facility] John Hoskins MD 10/09/2014 Office visit Heena Dumont MD 09/25/2014 Office visit Heena Dumont MD 09/17/2014 Office visit Kaylynn Mendez MATE CHIEF 09/04/2014 Office visit Heena Dumont MD 08/28/2014 Office visit Kaylynn Mendez MATE CHIEF 08/23/2014 [facility] John Hoskins MD 08/01/2014 Office visit Kaylynn Mendez MATE CHIEF 07/29/2014 Office visit Heena Dumont MD 07/25/2014 Nurse visit Heena Dumont MD 07/17/2014 Office visit Kaylynn Mendez MATE CHIEF 07/11/2014 Office visit Heena Dumont MD 07/01/2014 Office visit Heena Dumont MD 06/25/2014 Office visit Kaylynn Walker MATE CHIEF 06/12/2014 Office visit Kaylynn Walker MATE CHIEF 06/06/2014 Office visit Kaylynn Mendez MATE CHIEF 05/27/2014 Office visit Heena Dumont MD 04/20/2014 Office visit Yesica Falcon MATE CHIEF 03/29/2014 Office visit Na Jones MATE CHIEF 03/15/2014 Office visit Heena Dumont MD 2014 Office visit Heena Dumont MD 2014 [facility] John Hoskins MD 02/27/2014 Nurse visit Heena Dumont MD 02/13/2014 Office visit Lena El MATE CHIEF 02/07/2014 Office visit Heena Dumont MD 02/03/2014 Office visit Na Jones MATE CHIEF 01/30/2014 Office visit Kaylynn Mendez MATE CHIEF 01/24/2014 Office visit Sundeep Russell MATE CHIEF 01/16/2014 Office visit Kaylynn Mendez MATE CHIEF 01/10/2014 Nurse visit Kaylynn Mendez MATE CHIEF 01/08/2014 Office visit Kaylynn Mendez MATE CHIEF 12/05/2013 Office visit Kaylynn Mendez MATE CHIEF 11/21/2013 Office visit Kaylynn Mendez MATE CHIEF 10/23/2013 Office visit Brittni Yanez MATE CHIEF 10/17/2013 Nurse visit Heena Dumont MD 10/12/2013 Office visit Kaylynn Mendez MATE CHIEF 10/02/2013 Office visit Heena Dumont MD 09/20/2013 Nurse visit Kaylynn Mendez MATE CHIEF 09/20/2013 Voided Heena Dumont MD 09/14/2013 Office visit Kaylynn Walker MATE CHIEF 09/05/2013 Office visit Sundeep Russell MATE CHIEF 09/04/2013 Nurse visit Kaylynn Mendez MATE CHIEF 08/31/2013 Office visit Kaylynn Mendez MATE CHIEF 08/23/2013 Office visit Heena Dumont MD 08/10/2013 Office visit Kaylynn Mendez MATE CHIEF 07/25/2013 Office visit Kaylynn Mendez MATE CHIEF 07/18/2013 Office visit Kaylynn Walker MATE CHIEF 07/12/2013 Office visit Kaylynn Walker MATE CHIEF 06/28/2013 Nurse visit Kaylynn Walker MATE CHIEF 06/14/2013 Nurse visit Kaylynn Walker MATE CHIEF 06/08/2013 Nurse visit Kaylynn Walker MATE CHIEF 05/31/2013 Nurse visit Chadd Norris DO 05/18/2013 Office visit Terese Davidson MD 05/16/2013 Office visit Kaylynn Walker MATE CHIEF 05/09/2013 Office visit Kaylynn Walker MATE CHIEF 04/29/2013 [facility] John Hoskins MD 04/25/2013 Nurse visit Kaylynn Walker MATE CHIEF 04/17/2013 Office visit Kaylynn Walker MATE CHIEF 04/03/2013 Nurse visit Kaylynn Walker MATE CHIEF 04/03/2013 Office visit Terese Davidson MD 03/28/2013 Office visit Sundeep Russell MATE CHIEF 03/21/2013 Office visit Kaylynn Walker MATE CHIEF 03/20/2013 Office visit Terese Davidson MD 03/14/2013 Nurse visit Kaylynn Walker MATE CHIEF 03/05/2013 Nurse visit Kaylynn Walker MATE CHIEF 02/19/2013 Office visit Terese Davidson MD 02/16/2013 Nurse visit Kaylynn Walker MATE CHIEF 02/09/2013 Office visit Sundeep Russell MATE CHIEF 02/08/2013 Nurse visit Kaylynn Walker MATE CHIEF 02/01/2013 Nurse visit Kaylynn Walker MATE CHIEF 01/26/2013 Nurse visit Sabrina Mendez VETERINARY LABORATORY TECHNICIAN 01/25/2013 Office visit Kaylynn Walker MATE CHIEF 01/22/2013 Office visit Yoan Castaneda MD 01/18/2013 Nurse visit Kaylynn Walker MATE CHIEF 01/11/2013 Nurse visit Kaylynn Walker MATE CHIEF 01/05/2013 Nurse visit Kaylynn Walker MATE CHIEF 12/29/2012 Office visit Kaylynn Walker MATE CHIEF 11/27/2012 Office visit Kaylynn Mendez MATE CHIEF 11/08/2012 Office visit Odell Tierney MD 11/08/2012 Voided Odell Tierney MD 11/07/2012 Office visit Kaylynn Mendez MATE CHIEF 10/31/2012 [facility] John Hoskins MD 10/31/2012 Office visit Kaylynn Walker MATE CHIEF 10/19/2012 Office visit Genoveva Ayala MATE CHIEF 10/10/2012 Office visit Kaylynn Walker MATE CHIEF 10/03/2012 Office visit Kaylynn Walker MATE CHIEF 09/26/2012 Office visit Kaylynn Walker MATE CHIEF 09/06/2012 Office visit Kaylynn Mendez MATE CHIEF 09/06/2012 Office visit Odell Tierney MD 08/31/2012 Voided Kaylynn Mendez MATE CHIEF 07/28/2012 Office visit Kaylynn Andrea MATE CHIEF 07/27/2012 Office visit David Ar DO 07/20/2012 Hospital David Sherifftom DO 07/13/2012 Hospital David Ar DO 07/11/2012 Office visit Kaylynn Mendez MATE CHIEF 06/27/2012 Hospital Odell Tierney MD 06/21/2012 Office visit David Joyner DO 06/21/2012 Office visit Odell Tierney MD 06/20/2012 Office visit Brittni Yanez MATE CHIEF 06/06/2012 Office visit Odell Tierney MD 05/03/2012 Office visit Kaylynn Mendez MATE CHIEF 04/28/2012 Office visit Brittni Yanez MATE CHIEF 04/11/2012 Office visit Kaylynn Mendez MATE CHIEF 04/06/2012 Hospital John Hoskins MD 03/30/2012 Office visit Kaylynn Mendez MATE CHIEF 03/15/2012 Office visit Kaylynn Mendez MATE CHIEF 03/15/2012 Office visit Odell Tierney MD 02/09/2012 Office visit Kaylynn Mendez MATE CHIEF 12/23/2011 Office visit Kaylynn Mendez MATE CHIEF 11/02/2011 Office visit Kaylynn Mendez MATE CHIEF 10/14/2011 Office visit Kaylynn Mendez MATE CHIEF 09/27/2011 Office visit Kaylynn Mendez MATE CHIEF 08/19/2011 Hospital John Hoskins MD 08/18/2011 Hospital John Hoskins MD 08/18/2011 Office visit Kaylynn Mendez MATE CHIEF 08/02/2011 Office visit Kaylynn Mendez MATE CHIEF 07/08/2011 Office visit Kaylynn Mendez MATE CHIEF 07/05/2011 Office visit Odell Tierney MD 06/15/2011 Office visit Kaylynn Mendez MATE CHIEF 05/14/2011 Office visit Kaylynn Mendez MATE CHIEF 05/11/2011 Office visit Odell Tierney MD 04/28/2011 Office visit Kaylynn Mendez MATE CHIEF 03/02/2011 Office visit Chadd Norris DO 02/17/2011 [...]
--- OUTSIDE RECORDS SUMMARY | 2018-05-09 15:33 | XMS REPORT ---
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 Name Role Phone Kaylynn Mendez PCP Unavailable Allergies and Adverse Reactions Name Reaction Notes Aspirin Methadone Ultram Vicodin Plan of Treatment Planned Activity Comments Planned Date Planned Time Plan/Goal CINE/VID X-RAY THROAT/ESOPH 05/08/2015 12:00 AM INFLUENZA A/B AG EIA 07/17/2015 12:00 AM ELECTROCARDIOGRAM COMPLETE 10/31/2012 12:00 AM [...] take 1 tablet by oral route daily Invokana 100 mg oral tablet take 1 [...] intramuscular route once as needed for anaphylaxis simvastatin 20 mg oral tablet take 1 tablet (20 mg) by oral route once daily in the evening fenofibrate 120 mg oral tablet take 1 tablet (120 mg) by oral route once daily clobetasol-emollient 0.05 % topical foam 05/08/2015 09/05/2015 [...] tablet under tongue by translingual route daily montelukast 10 mg oral tablet 06/06/2015 TAKE 1 TABLET BY MOUTH EVERY EVENING Vimovo 500-20 mg oral tablet,IR,delayed rel,biphasic 06/10/2015 [...] a day as needed for 30 days metoprolol succinate 100 mg oral tablet extended release 24 hr 06/18/2015 1 TABLET BY ORAL ROUTE 1 TIME PER DAY FOR 30 DAYS Forteo 20 mcg/dose - 600 mcg/2.4 mL subcutaneous pen injector inject 0.08 milliliter (20 mcg) by subcutaneous route once daily into the thigh or abdominal wall hydrocodone-acetaminophen 7.5-325 mg oral tablet 07/04/2015 08/03/2015 take 1 tablet by oral route every 8 hours for 30 days wheelchair miscellaneous device 07/04/2015 10/11/2015 use as directed for 99 days Ventolin HFA 90 mcg/actuation inhalation HFA aerosol inhaler 07/04/20152015 inhale 1 puff (90 mcg) by inhalation route every 6 hours PRN Nasonex 50 mcg/actuation nasal spray,non-aerosol 07/15/2015 spray 2 sprays in each nostril by intranasal route once daily Sudafed 12 Hour 120 mg oral tablet extended release 07/15/2015 take 1 tablet (120 mg) by oral route every 12 hours Name Start Date Expiration Date SIG Comments [...] 08/27/2014 use as directed for 99 days [place] 5-325 mg oral tablet 06/17/2014 06/27/2014 take [...] a day as needed for 30 days [id number] 3.5-10,000-1 mg/mL-unit/mL-% otic drops,suspension 201401/08/2015 instill 4 [...] ORAL ROUTE ONCE DAILY AT BEDTIME PRN Robertafed 12 Hour 120 mg oral tablet extended [...] days Pt. reports not having the seizures Symbicort 160-4.5 mcg/actuation inhalation HFA aerosol inhaler 07/15/2015 inhale 2 puffs by inhalation route 2 times per day in the morning and evening Prolia 60 mg/mL subcutaneous syringe 07/04/2015 inject 1 milliliter (60 mg) by subcutaneous route every 6 months in the upper arm, upper thigh or abdomen switched to forteo promethazine 50 mg oral tablet 04/29/2015 07/15/2015 [...] route every 12 hours for 30 days QNASL 80 mcg/actuation nasal HFA aerosol inhaler 06/06/2015 07/15/2015 spray 2 sprays (160 mcg) in each nostril by intranasal route once daily Problem List Description Status Onset Anemia Active [...] HC BMI BSA BMI Percentile O2 Sat(%) 07/15/2015 8:58:00 AM 126 mmHg 68 mmHg [...] 12:00 AM DXA BONE DENSITY AXIAL Returned 06/06/2015 12:00 AM TDAP VACCINE 7 YRS/> IM Reviewed 04/28/2011 12:00 AM THER/PROPH/DIAG INJ SC/IM Reviewed 04/28/2011 12:00 AM Decadron 1 mg NDC#[id number] (Jr) Reviewed 04/28/2011 12:00 AM Depo-Medrol 80 mg NDC#[id number]-Czzfgoej Reviewed 05/11/2011 12:00 AM N BLOCK INJ OCCIPITAL Reviewed 05/11/2011 12:00 AM Kenalog Qf-[address]-20 ANNA Reviewed 06/15/2011 12:00 AM COMPLETE CBC W/AUTO DIFF WBC Returned 06/15/2011 12:00 AM COMPREHEN METABOLIC PANEL Returned 07/08/2011 12:00 AM THER/PROPH/DIAG INJ SC/IM Reviewed 07/08/2011 12:00 AM Toradol,15mg NDC#[id number], Adilene Reviewed 07/08/2011 12:00 AM Phenergan 50 Mg Im Ndc 5398-0199-01 ALLIE Hoskins Reviewed 08/02/2011 12:00 AM THER/PROPH/DIAG INJ SC/IM Reviewed 08/02/2011 12:00 AM Decadron 1 mg NDC#[id number] (Jr) Reviewed 08/02/2011 12:00 AM Depo-Medrol 80 mg NDC#[id number]-Hojrjony Reviewed 09/27/2011 12:00 AM THER/PROPH/DIAG INJ SC/IM Reviewed 09/27/2011 12:00 AM Depo-Medrol 80 mg NDC#[id number]-Enkmiwia Reviewed 10/14/2011 12:00 AM X-RAY EXAM OF ABDOMEN Returned 10/14/2011 12:00 AM URINALYSIS AUTO W/O SCOPE Reviewed 12/23/2011 12:00 AM THER/PROPH/DIAG INJ SC/IM Reviewed 12/23/2011 12:00 AM Decadron 1 mg NDC#[id number] (Jr) Reviewed 12/23/2011 12:00 AM Depo-Medrol 80 mg NDC#[id number]-Thiqbwca Reviewed 02/09/2012 12:00 AM THER/PROPH/DIAG INJ SC/IM Reviewed 02/09/2012 12:00 AM Decadron 1 mg NDC#[id number] (Jr) Reviewed 02/09/2012 12:00 AM Depo-Medrol 80 mg NDC#[id number]-Xtcfqvfo Reviewed 03/15/2012 12:00 AM N BLOCK INJ OCCIPITAL Reviewed 03/15/2012 12:00 AM Kenalog Qt-[address]-20 ANNA Reviewed 04/11/2012 12:00 AM COMPLETE CBC W/AUTO DIFF WBC Returned 04/11/2012 12:00 AM COMPREHEN METABOLIC PANEL Returned 04/11/2012 12:00 AM LIPID PANEL Returned 04/11/2012 12:00 AM ASSAY THYROID STIM HORMONE Returned 06/20/2012 12:00 AM THER/PROPH/DIAG INJ SC/IM Reviewed 06/20/2012 12:00 AM Decadron, Per 1 Mg ND# [address]-81 Reviewed 06/20/2012 12:00 AM Depo-Medrol, Per 80 Mg ND#0837-7432-20 Reviewed 09/06/2012 12:00 AM N BLOCK INJ OCCIPITAL Reviewed 09/06/2012 12:00 AM Kenalog Hf-[address]-20 ANNA Reviewed 09/06/2012 12:00 AM X-RAY EXAM RIBS UNI 2 VIEWS Returned 09/26/2012 12:00 AM THER/PROPH/DIAG INJ SC/IM Reviewed 09/26/2012 12:00 AM Decadron, Per 1 Mg [facility]# [address]-83 Reviewed 09/26/2012 12:00 AM Depo-Medrol, Per 80 Mg [facility]#9776-2803-26 Reviewed 10/03/2012 12:00 AM URINALYSIS AUTO W/O SCOPE Reviewed 10/03/2012 12:00 AM THER/PROPH/DIAG INJ SC/IM Reviewed 10/03/2012 12:00 AM Toradol 60 Mg ND#2005-7308-27 Reviewed 10/03/2012 12:00 AM Phenergan, 25Mg ND#2438-0630-35 Reviewed 10/19/2012 12:00 AM N BLOCK INJ OCCIPITAL Reviewed 10/19/2012 12:00 AM Kenalog, Per 10 Mg [facility]#5900-0594-72 Reviewed 10/19/2012 12:00 AM Toradol 30 Mg ND#4589-2412-19 Reviewed 10/19/2012 12:00 AM THER/PROPH/DIAG INJ SC/IM Reviewed 10/31/2012 12:00 AM COMPLETE CBC W/AUTO DIFF WBC Returned 10/31/2012 12:00 AM COMPREHEN METABOLIC PANEL Returned 10/31/2012 12:00 AM LIPID PANEL Returned 11/03/2012 12:[address] THORAX W/O & W/DYE Returned 11/08/2012 12:00 AM N BLOCK INJ OCCIPITAL Reviewed 11/08/2012 12:00 AM Kenalog Ug-[address]-20 ANNA Reviewed 11/27/2012 12:00 AM COMPLETE CBC [...] 01/25/2013 12:00 AM Decadron, Per 1 Mg [facility]# [address]-86 Reviewed 01/25/2013 12:00 AM Depo-Medrol, Per 80 Mg [facility]#3004-2334-85 Reviewed 01/26/2013 12:00 AM IMMUNOTHERAPY INJECTIONS Returned [...] 05/16/2013 12:00 AM Decadron, Per 1 Mg [facility]# [address]-23 Reviewed 05/16/2013 12:00 AM Depo-Medrol, Per 80 Mg [facility]#5491-9812-69 Reviewed 05/31/2013 12:00 AM IMMUNOTHERAPY INJECTIONS Reviewed 06/08/2013 12:00 AM IMMUNOTHERAPY INJECTIONS Reviewed 06/14/2013 12:00 AM IMMUNOTHERAPY INJECTIONS Reviewed 06/28/2013 12:00 AM IMMUNOTHERAPY INJECTIONS Reviewed 07/12/2013 12:00 AM X-RAY EXAM RIBS UNI 2 VIEWS Returned 07/18/2013 12:00 AM Toradol 60 Mg [facility]#1209-2064-45 Reviewed 07/18/2013 12:00 AM THER/PROPH/DIAG INJ SC/IM Reviewed 08/23/2013 12:00 AM COMPLETE CBC W/AUTO DIFF WBC Reviewed 08/23/2013 12:00 AM COMPREHEN METABOLIC PANEL Reviewed 08/23/2013 12:00 AM LIPID PANEL Reviewed 08/31/2013 12:00 AM X-RAY EXAM OF LOWER LEG Returned 09/04/2013 12:00 AM IMMUNOTHERAPY INJECTIONS Reviewed 09/14/2013 12:00 AM THER/PROPH/DIAG INJ SC/IM Reviewed 09/14/2013 12:00 AM Decadron, Per 1 Mg [facility]# [address]-14 Reviewed 09/14/2013 12:00 AM Depo-Medrol, Per 80 Mg [facility]#2376-8024-48 Reviewed 09/20/2013 12:00 AM IMMUNOTHERAPY INJECTIONS Reviewed [...] INJ OCCIPITAL Reviewed 12/10/2009 12:00 AM Kenalog Nj-[address]-20 ANNA Reviewed 12/16/2009 12:00 AM HIV-1ANTIBODY Reviewed 12/16/2009 12:00 AM COMPLETE CBC W/AUTO DIFF WBC Reviewed 12/16/2009 12:00 AM METABOLIC PANEL TOTAL CA Reviewed 12/16/2009 12:00 AM Type and screen Reviewed 12/16/2009 12:00 AM PROTHROMBIN TIME Reviewed 12/16/2009 12:00 AM THROMBOPLASTIN TIME PARTIAL Reviewed 03/18/2010 12:00 AM DRAIN/INJ JOINT/BURSA W/O US Reviewed 03/18/2010 12:00 AM Kenalog Ru-[address]-20 ANNA Reviewed 11/21/2013 12:00 AM RADEX HAND MINIMUM 3 VIEWS Returned 06/03/2010 12:00 AM INJ TRIGGER POINT 1/2 MUSCL Reviewed 06/03/2010 12:00 AM Kenalog per 10Mg Im-[facility]#[address]-70(Niall) Reviewed 12/05/2013 12:00 AM COMPLETE CBC W/AUTO [...] Returned 06/18/2010 12:00 AM INJ TRIGGER POINT 1/2 [...] Returned 07/23/2010 12:00 AM INJ TRIGGER POINT 1/2 MUSCL Reviewed 07/23/2010 12:00 AM Kenalog per 10Mg Im-Ndc#[address]-81(Niall) Reviewed 2014 12:00 AM COMPLETE CBC W/AUTO [...] INJ OCCIPITAL Reviewed 10/01/2010 12:00 AM Kenalog Uu-[address]-20 ANNA Reviewed 07/25/2014 12:00 AM THER/PROPH/DIAG INJ [...] 0.60 mg/dLCALCIUM 10.90 mg/ dLeGFR >60 mL/min/1.73 [id number] 45.0 U/L 08/31/2013 10:54 AM GLUCOSE 255.0 [...] 0.40 mg/ dLCALCIUM 10.60 mg/dLeGFR >60 mL/min/1.73 [id number] 369.0 mg/ dLCHOLESTEROL 153.0 mg/dLHDL 26.0 mg/dLLDL [...] BILI 0.30 mg/dLCALCIUM 10.0 mg/dLeGFR >60 mL/min/1.73 [id number] YELLOW APPEARANCE CLEAR SPEC GRAV 1.010 pH 5.5 PROTEIN NEGATIVE GLUCOSE NEGATIVE KETONE NEGATIVE BILIRUBIN NEGATIVE BLOOD NEGATIVE NITRITE NEGATIVE LEUK SCREEN NEGATIVE Est Avg Glucose 134.1 mg/dLMICROALBUMIN UR <0.5 MG/DL 02/13/2015 4:38 PM RMSF, IgG, EIA Negative [facility] Spotted Fever,IgM 0.51 E. [...] mL/min/1.73m 05/21/2015 12:35 PM D-DIMER QUANT <0.19 06/11/2015 2:48 PM GLUCOSE 129.0 mg/dLSODIUM 136.0 mmol/LPOTASSIUM 4.40 mmol/ LCHLORIDE 103.0 mmol/LCO2 24.0 mmol/LBUN 11.0 mg/dLCREATININE 0.80 mg/dLSGOT/ AST 32.0 IU/LSGPT/ALT 39.0 IU/LALK PHOS 120.0 IU/LTOTAL PROTEIN 7.50 g/ dLALBUMIN 4.80 g/dLTOTAL BILI 0.30 mg/dLCALCIUM 10.50 mg/dLeGFR >60 mL/min/ 1.73m History Of Immunizations Name Date Admin Mfg Name Mfg Code Trade Name Lot# Route Inj Vis Given Vis Pub CVX Influenza 03/30/2011 Not Entered NE Not Entered Not Entered Not Entered 03/31/2011 05/30/2015 141 Influenza 04/24/2014 sanofi pasteur PMC Fluzone [id number] Intramuscular Left Upper Arm 02/27/2014 01/15/2014 141 Influenza 02/13/2015 sanofi pasteur PMC Fluzone [id number] Intramuscular Left Deltoid 02/13/2015 01/03/2015 140 Tdap 06/06/2015 GlaxoSmithKline SKB BOOSTRIX [id number] Intramuscular Left Deltoid 06/06/2015 07/23/2014 115 History of Past Illness Name Date of [...] Muscle Spasm Jul 05 2011 1:58PM Headache Feb 9 2011 1:38PM [...] Feb 2 2014 3:51PM Elevated liver enzymes Feb 2 2015 3:51PM Sternal pain Jul 11 2014 4:22PM [...] 2015 9:50AM Cough Jul 17 2015 9:50AM Payers Insurance Name Company Name Plan Name Plan Number Policy Number Policy Group Number Start Date Medicare Part A Medicare Part A [id number] N/A [facility] - RHC - Community Plan [facility] Comm [id number] N/A [place] [employer] - RHC [place] [employer] - RHC [id number] [facility] Comm Plan of [id number] Wednesday, 2012 Medicare Part B Medicare Of [place] [id number] Monday, 2000 [place] Medical Assistance [facility] Medical Assistance Prog [id number] Tuesday, 2009 History of Encounters Visit Date Visit Type Provider 07/15/2015 Office visit Kaylynn Mendez CONTINUOUS WASHER OPERATOR 07/04/2015 Office visit Heena Dumont MD 06/06/2015 Office visit Heena Dumont MD 06/06/2015 Office visit Kaylynn Mendez CONTINUOUS WASHER OPERATOR 06/02/2015 Office visit Kaylynn Mendez CONTINUOUS WASHER OPERATOR 05/26/2015 Office visit Kaylynn Mendez CONTINUOUS WASHER OPERATOR 05/20/2015 Office visit Kaylynn Mendez CONTINUOUS WASHER OPERATOR 05/08/2015 Office visit Heena Dumont MD 05/06/2015 Office visit Kaylynn Mendez CONTINUOUS WASHER OPERATOR 04/29/2015 Office visit Kaylynn Mendez CONTINUOUS WASHER OPERATOR 03/27/2015 Voided Brittni Yanez CONTINUOUS WASHER OPERATOR 03/21/2015 Office visit Heena Dumont MD 03/12/2015 Office visit Kaylynn Mendez CONTINUOUS WASHER OPERATOR 02/26/2015 Office visit Brittni Yanez CONTINUOUS WASHER OPERATOR 02/13/2015 Office visit Heena Dumont MD 01/15/2015 Office visit Brittni Yanez CONTINUOUS WASHER OPERATOR 01/13/2015 Office visit Heena Dumont MD 01/08/[address] Carol Fowler MD 01/01/2015 Office visit Brittni Yanez CONTINUOUS WASHER OPERATOR 12/13/2014 Office visit Heena Dumont MD 11/27/2014 Office visit Kaylynn Mendez CONTINUOUS WASHER OPERATOR 11/14/2014 Office visit Heena Dumont MD 10/18/2014 Office visit Heena Dumont MD 10/17/2014 [facility] John Hoskins MD 10/09/2014 Office visit Heena Dumont MD 09/25/2014 Office visit Heena Dumont MD 09/17/2014 Office visit Kaylynn Mendez CONTINUOUS WASHER OPERATOR 09/04/2014 Office visit Heena Dumont MD 08/28/2014 Office visit Kaylynn Mendez CONTINUOUS WASHER OPERATOR 08/23/2014 [facility] John Hoskins MD 08/01/2014 Office visit Kaylynn Mendez CONTINUOUS WASHER OPERATOR 07/29/2014 Office visit Heena Dumont MD 07/25/2014 Nurse visit Heena Dumont MD 07/17/2014 Office visit Kaylynn Mendez CONTINUOUS WASHER OPERATOR 07/11/2014 Office visit Heena Dumont MD 07/01/2014 Office visit Heena Dumont MD 06/25/2014 Office visit Kaylynn Mendez CONTINUOUS WASHER OPERATOR 06/12/2014 Office visit Kaylynn Mendez CONTINUOUS WASHER OPERATOR 06/06/2014 Office visit Kaylynn Mendez CONTINUOUS WASHER OPERATOR 05/27/2014 Office visit Heena Dumont MD 04/20/2014 Office visit Yesica Falcon CONTINUOUS WASHER OPERATOR 03/29/2014 Office visit Na Jones CONTINUOUS WASHER OPERATOR 03/15/2014 Office visit Heena Dumont MD 2014 Office visit Heena Dumont MD 2014 [facility] John Hoskins MD 02/27/2014 Nurse visit Heena Dumont MD 02/13/2014 Office visit Lena El CONTINUOUS WASHER OPERATOR 02/07/2014 Office visit Heena Dumont MD 02/03/2014 Office visit Na Jones CONTINUOUS WASHER OPERATOR 01/30/2014 Office visit Kaylynn Mendez CONTINUOUS WASHER OPERATOR 01/24/2014 Office visit Sundeep Russell CONTINUOUS WASHER OPERATOR 01/16/2014 Office visit Kaylynn Mendez CONTINUOUS WASHER OPERATOR 01/10/2014 Nurse visit Kaylynn Mendez CONTINUOUS WASHER OPERATOR 01/08/2014 Office visit Kaylynn Mendez CONTINUOUS WASHER OPERATOR 12/05/2013 Office visit Kaylynn Mendez CONTINUOUS WASHER OPERATOR 11/21/2013 Office visit Kaylynn Mendez CONTINUOUS WASHER OPERATOR 10/23/2013 Office visit Brittni Yanez CONTINUOUS WASHER OPERATOR 10/17/2013 Nurse visit Heena Dumont MD 10/12/2013 Office visit Kaylynn Mendez CONTINUOUS WASHER OPERATOR 10/02/2013 Office visit Heena Dumont MD 09/20/2013 Nurse visit Kaylynn Mendez CONTINUOUS WASHER OPERATOR 09/20/2013 Voided Heena Dumont MD 09/14/2013 Office visit Kaylynn Walker CONTINUOUS WASHER OPERATOR 09/05/2013 Office visit Sundeep Russell CONTINUOUS WASHER OPERATOR 09/04/2013 Nurse visit Kaylynn Walker CONTINUOUS WASHER OPERATOR 08/31/2013 Office visit Kaylynn Walker CONTINUOUS WASHER OPERATOR 08/23/2013 Office visit Heena Dumont MD 08/10/2013 Office visit Kaylynn Walker CONTINUOUS WASHER OPERATOR 07/25/2013 Office visit Kaylynn Walker CONTINUOUS WASHER OPERATOR 07/18/2013 Office visit Kaylynn Walker CONTINUOUS WASHER OPERATOR 07/12/2013 Office visit Kaylynn Walker CONTINUOUS WASHER OPERATOR 06/28/2013 Nurse visit Kaylynn Walker CONTINUOUS WASHER OPERATOR 06/14/2013 Nurse visit Kaylynn Walker CONTINUOUS WASHER OPERATOR 06/08/2013 Nurse visit Kaylynn Walker CONTINUOUS WASHER OPERATOR 05/31/2013 Nurse visit Chadd Norris DO 05/18/2013 Office visit Terese Davidson MD 05/16/2013 Office visit Kaylynn Walker CONTINUOUS WASHER OPERATOR 05/09/2013 Office visit Kaylynn Mendez CONTINUOUS WASHER OPERATOR 04/29/2013 [facility] John Hoskins MD 04/25/2013 Nurse visit Kaylynn Walker CONTINUOUS WASHER OPERATOR 04/17/2013 Office visit Kaylynn Walker CONTINUOUS WASHER OPERATOR 04/03/2013 Nurse visit Kaylynn Mendez CONTINUOUS WASHER OPERATOR 04/03/2013 Office visit Terese Davidson MD 03/28/2013 Office visit Sundeep Russell CONTINUOUS WASHER OPERATOR 03/21/2013 Office visit Kaylynn Mendez CONTINUOUS WASHER OPERATOR 03/20/2013 Office visit Terese Davidson MD 03/14/2013 Nurse visit Kaylynn Walker CONTINUOUS WASHER OPERATOR 03/05/2013 Nurse visit Kaylynn Mendez CONTINUOUS WASHER OPERATOR 02/19/2013 Office visit Terese Davidson MD 02/16/2013 Nurse visit Kaylynn Mendez CONTINUOUS WASHER OPERATOR 02/09/2013 Office visit Sundeep Russell CONTINUOUS WASHER OPERATOR 02/08/2013 Nurse visit Kaylynn Walker CONTINUOUS WASHER OPERATOR 02/01/2013 Nurse visit Kaylynn Walker CONTINUOUS WASHER OPERATOR 01/26/2013 Nurse visit Sabrina Mendez SALES FLOOR ASSOCIATE 01/25/2013 Office visit Kaylynn Mendez CONTINUOUS WASHER OPERATOR 01/22/2013 Office visit Yoan Castaneda MD 01/18/2013 Nurse visit Kaylynn Walker CONTINUOUS WASHER OPERATOR 01/11/2013 Nurse visit Kaylynn Walker CONTINUOUS WASHER OPERATOR 01/05/2013 Nurse visit Kaylynn Walker CONTINUOUS WASHER OPERATOR 12/29/2012 Office visit Kaylynn Walker CONTINUOUS WASHER OPERATOR 11/27/2012 Office visit Kaylynn Walker CONTINUOUS WASHER OPERATOR 11/08/2012 Office visit Odell Tierney MD 11/08/2012 Voided Odell Tierney MD 11/07/2012 Office visit Kaylynn Mendez CONTINUOUS WASHER OPERATOR 10/31/2012 [facility] John Hoskins MD 10/31/2012 Office visit Kaylynn Mendez CONTINUOUS WASHER OPERATOR 10/19/2012 Office visit Genoveva Ayala CONTINUOUS WASHER OPERATOR 10/10/2012 Office visit Kaylynn Walker CONTINUOUS WASHER OPERATOR 10/03/2012 Office visit Kaylynn Walker CONTINUOUS WASHER OPERATOR 09/26/2012 Office visit Kaylynn Walker CONTINUOUS WASHER OPERATOR 09/06/2012 Office visit Kaylynn Walker CONTINUOUS WASHER OPERATOR 09/06/2012 Office visit Odell Tierney MD 08/31/2012 Voided Kaylynn Mendez CONTINUOUS WASHER OPERATOR 07/28/2012 Office visit Kaylynn Mendez CONTINUOUS WASHER OPERATOR 07/27/2012 Office visit David Joyner DO 07/20/2012 [facility] David Joyner DO 07/13/2012 [facility] David Joyner DO 07/11/2012 Office visit Kaylynn Mendez CONTINUOUS WASHER OPERATOR 06/27/2012 [facility] Odell Tierney MD 06/21/2012 Office visit David Joyner DO 06/21/2012 Office visit Odell Tierney MD 06/20/2012 Office visit Brittni Yanez CONTINUOUS WASHER OPERATOR 06/06/2012 Office visit Odell Tierney MD 05/03/2012 Office visit Kaylynn Mendez CONTINUOUS WASHER OPERATOR 04/28/2012 Office visit Brittni Yanez CONTINUOUS WASHER OPERATOR 04/11/2012 Office visit Kaylynn Mendez CONTINUOUS WASHER OPERATOR 04/06/2012 [facility] John Hoskins MD 03/30/2012 Office visit Kaylynn Mendez CONTINUOUS WASHER OPERATOR 03/15/2012 Office visit Kaylynn Mendez CONTINUOUS WASHER OPERATOR 03/15/2012 Office visit Odell Tierney MD 02/09/2012 Office visit Kaylynn Mendez CONTINUOUS WASHER OPERATOR 12/23/2011 Office visit Kaylynn Mendez CONTINUOUS WASHER OPERATOR 11/02/2011 Office visit Kaylynn Mendez CONTINUOUS WASHER OPERATOR 10/14/2011 Office visit Kaylynn Mendez CONTINUOUS WASHER OPERATOR 09/27/2011 Office visit Kaylynn Mendez CONTINUOUS WASHER OPERATOR 08/19/2011 [facility] John Hoskins MD 08/18/2011 [facility] John Hoskins MD 08/18/2011 Office visit Kaylynn Mendez CONTINUOUS WASHER OPERATOR 08/02/2011 Office visit Kaylynn Mendez CONTINUOUS WASHER OPERATOR 07/08/2011 Office visit Kaylynn Mendez CONTINUOUS WASHER OPERATOR 07/05/2011 Office visit Odell Tierney MD 06/15/2011 Office visit Kaylynn Mendez CONTINUOUS WASHER OPERATOR 05/14/2011 Office visit Kaylynn Mendez CONTINUOUS WASHER OPERATOR 05/11/2011 Office visit Odell Tierney MD 04/28/2011 Office visit Kaylynn Mendez CONTINUOUS WASHER OPERATOR 03/02/2011 Office visit Chadd Norris DO [...]
--- OUTSIDE RECORDS SUMMARY | 2018-05-09 15:39 | XMS REPORT ---
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 DO NOT CRUSH, CHEW AND/OR DIVIDE. FOR 30 DAYS MS Contin 30 mg oral tablet extended release 11/02/2016 12/02/2016 take 0.5 tablet by oral route every 12 hours for 30 days albuterol sulfate 2.5 mg /3 mL (0.083 %) inhalation solution for nebulization 11/17/2016 inhale 3 milliliters (2.5 mg) by nebulization route 4 times per day doxycycline monohydrate 100 mg oral tablet 11/17/2016 11/24/2016 take 1 tablet (100 mg) by oral route every 12 hours for 7 days prednisone 20 mg oral tablet 11/17/2016 take 2 tablets x2 days then 1 tablet daily x4 Name Start Date Expiration Date SIG Comments [...] 08/27/2014 use as directed for 99 days Safford 5-325 mg oral tablet 06/17/2014 06/27/2014 take [...] a day as needed for 30 days hhbwbbpo-hgsealuho-RG 3.5-10,000-1 mg/mL-unit/mL-% otic drops,suspension 201401/08/2015 instill 4 [...] Ok for similiar substitution or individual components. ccgcqcna-vaaputxcu-EO 3.5-10,000-1 mg/mL-unit/mL-% otic drops,suspension 201607/23/2016 instill 4 drops into affected ear(s) by otic route 3 times per day for 7 days Cipro 500 mg oral tablet 11/01/2016 11/08/2016 take 1 tablet (500 mg) by oral route every 12 hours for 7 days oxycodone 5 mg oral tablet 11/05/2016 11/15/2016 take 1 tablet every 6 hours as needed. Discontinued Name Start Date Discontinued Date SIG [...] HC BMI BSA BMI Percentile O2 Sat(%) 11/17/2016 10:33:00 AM 132 mmHg 72 mmHg [...] Reviewed 04/28/2011 12:00 AM Decadron 1 mg ND#[id number] (Jr) Reviewed 04/28/2011 12:00 AM Depo-Medrol 80 mg ND#[id number]-Dgqixuor Reviewed 09/02/2015 12:00 AM Toradol 60 Mg ND#2643-9883-23 Reviewed 09/02/2015 12:00 AM Phenergan, Up to 50 Mg RHC Medicaid Reviewed 09/16/2015 12:00 AM Toradol 60 Mg [facility]#9997-9975-57 Reviewed 09/16/2015 12:00 AM Phenergan Up to 50 mg RHC Medicare Reviewed 05/11/2011 12:00 AM N BLOCK INJ OCCIPITAL Reviewed 05/11/2011 12:00 AM Kenalog Om-[address]-20 ANNA Reviewed 11/13/2015 12:00 AM ASSAY OF [...] INJ SC/IM Reviewed 07/08/2011 12:00 AM Toradol,15mg [facility]#[id number], Brunildaer Reviewed 07/08/2011 12:00 AM Phenergan 50 Mg Im [facility] 9035-8166-68 [facility] Reviewed 01/21/2016 12:00 AM ECG MONIT/REPRT UP TO 48 HRS Returned 08/02/2011 12:00 AM THER/PROPH/DIAG INJ SC/IM Reviewed 08/02/2011 12:00 AM Decadron 1 mg [facility]#[id number] (Jr) Reviewed 08/02/2011 12:00 AM Depo-Medrol 80 mg [facility]#[id number]-Xvrywuwb Reviewed 03/05/2016 12:00 AM COMPLETE CBC W/AUTO DIFF WBC Reviewed 03/05/2016 12:00 AM STREP A ASSAY W/OPTIC Reviewed 03/05/2016 12:00 AM C-REACTIVE PROTEIN Reviewed 03/18/2016 12:00 AM [facility] MEDICARE - flu vaccine administration Reviewed [...] Reviewed 09/27/2011 12:00 AM Depo-Medrol 80 mg NDC#[id number]-Apzmypbv Reviewed 09/27/2011 12:00 AM Depo-Medrol 40 mg NDC#[id number] Reviewed 07/06/2016 12:00 AM CHEST X-RAY 4/> [...] Reviewed 12/23/2011 12:00 AM Decadron 1 mg NDC#[id number] (Jr) Reviewed 12/23/2011 12:00 AM Depo-Medrol 80 mg NDC#[id number]-Cdpqwpvt Reviewed 11/02/2016 11:45 AM URINALYSIS AUTO W/O SCOPE Reviewed 02/09/2012 12:00 AM THER/PROPH/DIAG INJ SC/IM Reviewed 02/09/2012 12:00 AM Decadron 1 mg NDC#[id number] (Jr) Reviewed 02/09/2012 12:00 AM Depo-Medrol 80 mg ND#[id number]-Luodfpju Reviewed 03/15/2012 12:00 AM N BLOCK INJ OCCIPITAL Reviewed 03/15/2012 12:00 AM Kenalog Gm-[address]-20 ANNA Reviewed 04/11/2012 12:00 AM COMPLETE CBC W/AUTO DIFF WBC Reviewed 04/11/2012 12:00 AM COMPREHEN METABOLIC PANEL Reviewed 04/11/2012 12:00 AM LIPID PANEL Reviewed 04/11/2012 12:00 AM ASSAY THYROID STIM HORMONE Reviewed 04/11/2012 12:00 AM DESTRUCT PREMALG LES 2-14 Reviewed 06/20/2012 12:00 AM THER/PROPH/DIAG INJ SC/IM Reviewed 06/20/2012 12:00 AM Decadron, Per 1 Mg ND# [address]-00 Reviewed 06/20/2012 12:00 AM Depo-Medrol, Per 80 Mg ND#2532-9150-03 Reviewed 09/06/2012 12:00 AM N BLOCK INJ OCCIPITAL Reviewed 09/06/2012 12:00 AM Kenalog Rr-[address]-20 ANNA Reviewed 09/06/2012 12:00 AM X-RAY EXAM RIBS UNI 2 VIEWS Reviewed 09/26/2012 12:00 AM THER/PROPH/DIAG INJ SC/IM Reviewed 09/26/2012 12:00 AM Decadron, Per 1 Mg ND# [address]-74 Reviewed 09/26/2012 12:00 AM Depo-Medrol, Per 80 Mg ND#2081-8202-92 Reviewed 10/03/2012 12:00 AM URINALYSIS AUTO W/O SCOPE Reviewed 10/03/2012 12:00 AM THER/PROPH/DIAG INJ SC/IM Reviewed 10/03/2012 12:00 AM Toradol 60 Mg ND#9973-4438-64 Reviewed 10/03/2012 12:00 AM Phenergan, 25Mg ND#0945-8888-37 Reviewed 10/19/2012 12:00 AM N BLOCK INJ OCCIPITAL Reviewed 10/19/2012 12:00 AM Kenalog, Per 10 Mg ND#3746-1811-85 Reviewed 10/19/2012 12:00 AM Toradol 30 Mg ND#7345-2784-64 Reviewed 10/19/2012 12:00 AM THER/PROPH/DIAG INJ SC/IM Reviewed 10/31/2012 12:00 AM COMPLETE CBC W/AUTO DIFF WBC Reviewed 10/31/2012 12:00 AM COMPREHEN METABOLIC PANEL Reviewed 10/31/2012 12:00 AM LIPID PANEL Reviewed 10/31/2012 12:00 AM ELECTROCARDIOGRAM COMPLETE Reviewed 11/03/2012 12:[address] THORAX W/O & W/DYE Reviewed 11/08/2012 12:00 AM N BLOCK INJ OCCIPITAL Reviewed 11/08/2012 12:00 AM Kenalog Jo-[address]-20 ANNA Reviewed 11/27/2012 12:00 AM COMPLETE CBC [...] 01/25/2013 12:00 AM Decadron, Per 1 Mg [facility]# [address]-59 Reviewed 01/25/2013 12:00 AM Depo-Medrol, Per 80 Mg [facility]#7845-8737-21 Reviewed 01/26/2013 12:00 AM IMMUNOTHERAPY ONE INJECTION [...] 05/16/2013 12:00 AM Decadron, Per 1 Mg [facility]# [address]-25 Reviewed 05/16/2013 12:00 AM Depo-Medrol, Per 80 Mg [facility]#1041-4122-85 Reviewed 05/31/2013 12:00 AM IMMUNOTHERAPY INJECTIONS Reviewed 06/08/2013 12:00 AM IMMUNOTHERAPY INJECTIONS Reviewed 06/14/2013 12:00 AM IMMUNOTHERAPY INJECTIONS Reviewed 06/28/2013 12:00 AM IMMUNOTHERAPY INJECTIONS Reviewed 07/12/2013 12:00 AM X-RAY EXAM RIBS UNI 2 VIEWS Reviewed 07/18/2013 12:00 AM Toradol 60 Mg [facility]#3106-8370-02 Reviewed 07/18/2013 12:00 AM THER/PROPH/DIAG INJ SC/IM Reviewed 08/23/2013 12:00 AM COMPLETE CBC W/AUTO DIFF WBC Reviewed 08/23/2013 12:00 AM COMPREHEN METABOLIC PANEL Reviewed 08/23/2013 12:00 AM LIPID PANEL Reviewed 08/31/2013 12:00 AM X-RAY EXAM OF LOWER LEG Reviewed 09/04/2013 12:00 AM IMMUNOTHERAPY INJECTIONS Reviewed 09/14/2013 12:00 AM THER/PROPH/DIAG INJ SC/IM Reviewed 09/14/2013 12:00 AM Decadron, Per 1 Mg [facility]# [address]-18 Reviewed 09/14/2013 12:00 AM Depo-Medrol, Per 80 Mg [facility]#3658-6528-78 Reviewed 09/20/2013 12:00 AM IMMUNOTHERAPY INJECTIONS Reviewed [...] INJ OCCIPITAL Reviewed 12/10/2009 12:00 AM Kenalog Qe-[address]-20 ANNA Reviewed 12/16/2009 12:00 AM HIV-1ANTIBODY Reviewed 12/16/2009 12:00 AM COMPLETE CBC W/AUTO DIFF WBC Reviewed 12/16/2009 12:00 AM METABOLIC PANEL TOTAL CA Reviewed 12/16/2009 12:00 AM Type and screen Reviewed 12/16/2009 12:00 AM PROTHROMBIN TIME Reviewed 12/16/2009 12:00 AM THROMBOPLASTIN TIME PARTIAL Reviewed 03/18/2010 12:00 AM DRAIN/INJ JOINT/BURSA W/O US Reviewed 03/18/2010 12:00 AM Kenalog On-[address]-20 ANNA Reviewed 11/21/2013 12:00 AM RADEX HAND MINIMUM 3 VIEWS Reviewed 06/03/2010 12:00 AM INJ TRIGGER POINT 1/2 MUSCL Reviewed 06/03/2010 12:00 AM Kenalog per 10Mg -[facility]#[address]-29(Niall) Reviewed 12/05/2013 12:00 AM COMPLETE CBC W/AUTO [...] AM Kenalog per 10Mg Im-[facility]#[address]-70(Niall) Reviewed 2014 12:00 AM COMPLETE CBC W/AUTO [...] BLOCK INJ OCCIPITAL Reviewed 10/01/2010 12:00 AM Quentin Xl-[address]-20 ANNA Reviewed 07/25/2014 12:00 AM THER/PROPH/DIAG INJ [...] Quant,IgM <0.80 RMSF , IgG, EIA Negative [facility] Spotted Fever,IgM 0.51 E. chaffeensis (HME) [...] neg WBC Est Ur Ql Strip neg 11/12/2016 9:25 AM GLUCOSE 148.0 mg/dLSODIUM 141.0 mmol/LPOTASSIUM 4.0 mmol/ LCHLORIDE 108.0 mmol/LCO2 23.0 mmol/LBUN 12.0 mg/dLCREATININE 0.70 mg/dLSGOT/ AST 20.0 IU/LSGPT/ALT 33.0 IU/LALK PHOS 69.0 IU/LTOTAL PROTEIN 7.50 g/dLALBUMIN 4.10 g/dLTOTAL BILI 0.20 mg/dLCALCIUM 9.70 mg/dLAGE 41 GFR NonAA 93 GFR AA 113 eGFR >60 mL/min/1.73meGFR AA* >60 FREE T4 0.95 TSH 1.180 uIU/mLT3 TOTAL 93.0 ng/dLVITAMIN D 62.60 ng/mL History Of Immunizations Name Date Admin Mfg Name Mfg Code Trade Name Lot# Route Inj Vis Given Vis Pub CVX Influenza 03/30/2011 Not Entered NE Not Entered Not Entered Not Entered 03/31/2011 05/30/2016 141 Influenza 04/24/2014 sanofi pasteur PMC Fluzone [id number] Intramuscular Left Upper Arm 02/27/2014 01/15/2014 141 Influenza 02/13/2015 sanofi pasteur PMC Fluzone [id number] Intramuscular Left Deltoid 02/13/2015 01/03/2015 140 Tdap 06/06/2015 GlaxoSmithKline SKB BOOSTRIX [id number] Intramuscular Left Deltoid 06/06/2015 07/23/2014 115 Influenza 03/18/2016 sanofi pasteur PMC Fluzone [id number] Intramuscular Left Deltoid 03/17/2016 01/03/2015 141 History [...] Lumbago Feb 6 2011 1:58PM Muscle Spasm Jul 05 2011 [...] Lumbago b 2016 3:25PM Stenosis, cervical spine b 2016 [...] acute exacerbation Nov 17 2016 10: 34AM Payers Insurance Name Company Name Plan Name Plan Number Policy Number Policy Group Number Start Date Medicare RHC Medicare [facility] [id number] N/A [facility] Comm [id number] N/A Medicare Part A Medicare - Lab/Xray [id number] N/A Medicare Part B Medicare [place] [id number] Monday, February 28, 2000 [place] [employer] [place] [employer] [place] Prog [id number] Tuesday, November 10, 2009 Medicare Part A Medicare Part A [id number] N/A [place] Care[place] Non Medical Prog - RHC [place] [employer] Non Medical Prog - RHC [id number] May [facility] Plan of [id number] Wednesday, May 30, 2012 History of Encounters Visit Date Visit Type Provider 11/17/2016 Office visit Kaylynn Mendez BEATER ENGINEER HELPER 11/05/2016 Office visit Riccardo Cardoza MD 11/02/2016 Office visit Heena Dumont MD 10/06/2016 Office visit Kaylynn Mendez BEATER ENGINEER HELPER 09/22/2016 Office visit Heena Dumont MD 09/09/2016 Office visit Kaylynn Mendez BEATER ENGINEER HELPER 08/27/2016 Office visit Riccardo Cardoza MD 08/26/2016 Office visit Heena Dumont MD 07/09/2016 Office visit Riccardo Cardoza MD 07/06/2016 Office visit Heena Dumont MD 06/18/2016 Office visit Kaylynn Mendez BEATER ENGINEER HELPER 06/07/2016 Office visit Sundeep Russell BEATER ENGINEER HELPER 06/04/2016 Office visit Heena Dumont MD 05/13/2016 Office visit Heena Dumont MD 05/03/2016 Office visit Heena Dumont MD 04/26/2016 Office visit Kaylynn Mendez BEATER ENGINEER HELPER 04/14/2016 Office visit Heena Dumont MD 04/13/2016 Office visit Kaylynn Mendez BEATER ENGINEER HELPER 04/02/2016 Office visit Lena El BEATER ENGINEER HELPER 04/02/2016 Office visit Heena Dumont MD 03/26/2016 Office visit Yesica Falcon BEATER ENGINEER HELPER 03/17/2016 Office visit Heena Dumont MD 03/05/2016 Office visit Kaylynn Mendez BEATER ENGINEER HELPER 02/16/2016 Office visit Heena Dumont MD 02/14/2016 Office visit Na Jones BEATER ENGINEER HELPER 01/16/2016 Office visit Heena Dumont MD 12/16/2015 Office visit Heena Dumont MD 11/24/2015 Office visit Kaylynn Mendez BEATER ENGINEER HELPER 11/18/2015 Office visit Heena Dumont MD 11/03/2015 Office visit Sundeep Galloran BEATER ENGINEER HELPER 10/20/2015 Office visit Kaylynn Walker BEATER ENGINEER HELPER 09/23/2015 Office visit Kaylynn Walker BEATER ENGINEER HELPER 09/16/[address] Pepe Figueroa MD 09/02/2015 Office visit Kaylynn Walker BEATER ENGINEER HELPER 09/01/2015 Office visit Kaylynn Walker BEATER ENGINEER HELPER 07/30/2015 Office visit Heena Dumont MD 07/15/2015 Office visit Kaylynn Walker BEATER ENGINEER HELPER 07/04/2015 Office visit Heena Dumont MD 06/06/2015 Office visit Heena Dumont MD 06/06/2015 Office visit Kaylynn Walker BEATER ENGINEER HELPER 06/02/2015 Office visit Kaylynn Walker BEATER ENGINEER HELPER 05/26/2015 Office visit Kaylynn Walker BEATER ENGINEER HELPER 05/20/2015 Office visit Kaylynn Walker BEATER ENGINEER HELPER 05/08/2015 Office visit Heena Dumont MD 05/06/2015 Office visit Kaylynn Walker BEATER ENGINEER HELPER 04/29/2015 Office visit Kaylynn Walker BEATER ENGINEER HELPER 03/27/2015 Voided Brittni Yanez BEATER ENGINEER HELPER 03/21/2015 Office visit Heena Dumont MD 03/12/2015 Office visit Kaylynn Mendez BEATER ENGINEER HELPER 02/26/2015 Office visit Brittni Yanez BEATER ENGINEER HELPER 02/13/2015 Office visit Heena Dumont MD 01/15/2015 Office visit Brittni Yanez BEATER ENGINEER HELPER 01/13/2015 Office visit Heena Dumont MD 01/08/[address] Carol Fowler MD 01/01/2015 Office visit Brittni Yanez BEATER ENGINEER HELPER 12/13/2014 Office visit Heena Dumont MD 11/27/2014 Office visit Kaylynn Mendez BEATER ENGINEER HELPER 11/14/2014 Office visit Heena Dumont MD 10/18/2014 Office visit Heena Dumont MD 10/17/2014 [facility] MD 10/09/2014 Office visit Heena Dumont MD 09/25/2014 Office visit Heena Dumont MD 09/17/2014 Office visit Kaylynn Mendez BEATER ENGINEER HELPER 09/04/2014 Office visit Heena Dumont MD 08/28/2014 Office visit Kaylynn Mendez BEATER ENGINEER HELPER 08/23/2014 [facility] Hoskins MD 08/01/2014 Office visit Kaylynn Mendez BEATER ENGINEER HELPER 07/29/2014 Office visit Heena Dumont MD 07/25/2014 Nurse visit Heena Dumont MD 07/17/2014 Office visit Kaylynn Mendez BEATER ENGINEER HELPER 07/11/2014 Office visit Heena Dumont MD 07/01/2014 Office visit Heena Dumont MD 06/25/2014 Office visit Kaylynn Mendez BEATER ENGINEER HELPER 06/12/2014 Office visit Kaylynn Mendez BEATER ENGINEER HELPER 06/06/2014 Office visit Kaylynn Mendez BEATER ENGINEER HELPER 05/27/2014 Office visit Heena Dumont MD 04/20/2014 Office visit Yesica Falcon BEATER ENGINEER HELPER 03/29/2014 Office visit Na Jones BEATER ENGINEER HELPER 03/15/2014 Office visit Heena Dumont MD 2014 Office visit Heena Dumont MD 2014 [facility] Eliseo Hoskins MD 02/27/2014 Nurse visit Heena Dumont MD 02/13/2014 Office visit Lena El BEATER ENGINEER HELPER 02/07/2014 Office visit Heena Dumont MD 02/03/2014 Office visit Na Jones BEATER ENGINEER HELPER 01/30/2014 Office visit Kaylynn Mendez BEATER ENGINEER HELPER 01/24/2014 Office visit Sundeep Russell BEATER ENGINEER HELPER 01/16/2014 Office visit Kaylynn Mendez BEATER ENGINEER HELPER 01/10/2014 Nurse visit Kaylynn Mendez BEATER ENGINEER HELPER 01/08/2014 Office visit Kaylynn Walker BEATER ENGINEER HELPER 12/05/2013 Office visit Kaylynn Mendez BEATER ENGINEER HELPER 11/21/2013 Office visit Kaylynn Mendez BEATER ENGINEER HELPER 10/23/2013 Office visit Brittni Yanez BEATER ENGINEER HELPER 10/17/2013 Nurse visit Heena Dumont MD 10/12/2013 Office visit Kaylynn Mendez BEATER ENGINEER HELPER 10/02/2013 Office visit Heena Dumont MD 09/20/2013 Nurse visit Kaylynn Mendez BEATER ENGINEER HELPER 09/20/2013 Voided Heena Dumont MD 09/14/2013 Office visit Kaylynn Mendez BEATER ENGINEER HELPER 09/05/2013 Office visit Sundeep Russell BEATER ENGINEER HELPER 09/04/2013 Nurse visit Kaylynn Walker BEATER ENGINEER HELPER 08/31/2013 Office visit Kaylynn Mendez BEATER ENGINEER HELPER 08/23/2013 Office visit Heena Dumont MD 08/10/2013 Office visit Kaylynn Mendez BEATER ENGINEER HELPER 07/25/2013 Office visit Kaylynn Walker BEATER ENGINEER HELPER 07/18/2013 Office visit Kaylynn Walker BEATER ENGINEER HELPER 07/12/2013 Office visit Kaylynn Walker BEATER ENGINEER HELPER 06/28/2013 Nurse visit Kaylynn Walker BEATER ENGINEER HELPER 06/14/2013 Nurse visit Kaylynn Walker BEATER ENGINEER HELPER 06/08/2013 Nurse visit Kaylynn Walker BEATER ENGINEER HELPER 05/31/2013 Nurse visit Chadd Norris DO 05/18/2013 Office visit Terese Davidson MD 05/16/2013 Office visit Kaylynn Walker BEATER ENGINEER HELPER 05/09/2013 Office visit Kaylynn Mendez BEATER ENGINEER HELPER 04/29/2013 [facility] MD 04/25/2013 Nurse visit Kaylynn Walker BEATER ENGINEER HELPER 04/17/2013 Office visit Kaylynn Walker BEATER ENGINEER HELPER 04/03/2013 Nurse visit Kaylynn Walker BEATER ENGINEER HELPER 04/03/2013 Office visit Terese Davidson MD 03/28/2013 Office visit Sundeep Russell BEATER ENGINEER HELPER 03/21/2013 Office visit Kaylynn Mendez BEATER ENGINEER HELPER 03/20/2013 Office visit Terese Davidson MD 03/14/2013 Nurse visit Kaylynn Walker BEATER ENGINEER HELPER 03/05/2013 Nurse visit Kaylynn Walker BEATER ENGINEER HELPER 02/19/2013 Office visit Terese Davidson MD 02/16/2013 Nurse visit Kaylynn Walker BEATER ENGINEER HELPER 02/09/2013 Office visit Sundeep Russell BEATER ENGINEER HELPER 02/08/2013 Nurse visit Kaylynn Walker BEATER ENGINEER HELPER 02/01/2013 Nurse visit Kaylynn Walker BEATER ENGINEER HELPER 01/26/2013 Nurse visit Sabrina Andrea GROCERY STORE ASSOCIATE 01/25/2013 Office visit Kaylynn Mendez BEATER ENGINEER HELPER 01/22/2013 Office visit Yoan Castaneda MD 01/18/2013 Nurse visit Kaylynn Walker BEATER ENGINEER HELPER 01/11/2013 Nurse visit Kaylynn Walker BEATER ENGINEER HELPER 01/05/2013 Nurse visit Kaylynn Walker BEATER ENGINEER HELPER 12/29/2012 Office visit Kaylynn Walker BEATER ENGINEER HELPER 11/27/2012 Office visit Kaylynn Mendez BEATER ENGINEER HELPER 11/08/2012 Office visit Odell Tierney MD 11/08/2012 Voided Odell Tierney MD 11/07/2012 Office visit Kaylynn Mendez BEATER ENGINEER HELPER 10/31/2012 [facility] MD 10/31/2012 Office visit Kaylynn Walker BEATER ENGINEER HELPER 10/19/2012 Office visit Genoveva Ayala BEATER ENGINEER HELPER 10/10/2012 Office visit Kaylynn Walker BEATER ENGINEER HELPER 10/03/2012 Office visit Kaylynn Walker BEATER ENGINEER HELPER 09/26/2012 Office visit Kaylynn Walker BEATER ENGINEER HELPER 09/06/2012 Office visit Kaylynn Mendez BEATER ENGINEER HELPER 09/06/2012 Office visit Odell Tierney MD 08/31/2012 Voided Kaylynn Mendez BEATER ENGINEER HELPER 07/28/2012 Office visit Kaylynn Mendez BEATER ENGINEER HELPER 07/27/2012 Office visit David Joyenr DO 07/20/2012 [facility] DO 07/13/2012 [facility] Joyner DO 07/11/2012 Office visit Kaylynn Mendez BEATER ENGINEER HELPER 06/27/2012 [facility] Odell Tierney MD 06/21/2012 Office visit David Joyner DO 06/21/2012 Office visit Odell Tierney MD 06/20/2012 Office visit Brittni Yanez BEATER ENGINEER HELPER 06/06/2012 Office visit Odell Tierney MD 05/03/2012 Office visit Kaylynn Mendez BEATER ENGINEER HELPER 04/28/2012 Office visit Brittni Yanez BEATER ENGINEER HELPER 04/11/2012 Office visit Kaylynn Andrea BEATER ENGINEER HELPER 04/06/2012 [facility] MD 03/30/2012 Office visit Kaylynn Walker BEATER ENGINEER HELPER 03/15/2012 Office visit Kaylynn Walker BEATER ENGINEER HELPER 03/15/2012 Office visit Odell Tierney MD 02/09/2012 Office visit Kaylynn Andrea BEATER ENGINEER HELPER 12/23/2011 Office visit Kaylynn Walker BEATER ENGINEER HELPER 11/02/2011 Office visit Kaylynn Walker BEATER ENGINEER HELPER 10/14/2011 Office visit Kaylynn Walker BEATER ENGINEER HELPER 09/27/2011 Office visit Kaylynn Walker BEATER ENGINEER HELPER 08/19/2011 [facility] Hos[facility] MD 08/18/2011 [facility] MD 08/18/2011 Office visit Kaylynn Mendez BEATER ENGINEER HELPER 08/02/2011 Office visit Kaylynn Walker BEATER ENGINEER HELPER 07/08/2011 Office visit Kaylynn Andrea BEATER ENGINEER HELPER 07/05/2011 Office visit Odell Tierney MD 06/15/2011 Office visit Kaylynn Mendez BEATER ENGINEER HELPER 05/14/2011 Office visit Kaylynn Mendez BEATER ENGINEER HELPER 05/11/2011 Office visit Odell Tierney MD 04/28/2011 Office visit Kaylynn Mendez BEATER ENGINEER HELPER 03/02/2011 Office visit Chadd Norris DO 02/17/2011 [...]
--- OUTSIDE RECORDS SUMMARY | 2018-05-09 15:43 | XMS REPORT ---
Author Kaylynn Lyles Organization [facility] Address [address] [place], [place] [id number] Care Team Providers Care Wharf Attendant Name Role Phone Kaylynn Mendez PCP Unavailable Allergies and Adverse Reactions Name Reaction Notes Aspirin Methadone Ultram Vicodin Plan of Treatment Planned Activity Comments Planned Date Planned Time Plan/Goal CINE/VID X-RAY THROAT/ESOPH 05/08/2015 12:00 AM COMPREHEN METABOLIC PANEL 09/16/2015 12:00 AM ELECTROCARDIOGRAM COMPLETE 10/31/2012 12:00 AM [...] 3 TIMES PER DAY PRN MUSCLE SPASM Larry Mandel Lancets 33 gauge miscellaneous misc 08/21/2014 use [...] (120 mg) by oral route once daily Grastek 2,800 BAU sublingual tablet, sublingual 06/06/2015 place 1 tablet under tongue by translingual route daily montelukast 10 mg oral tablet 06/06/2015 TAKE 1 TABLET BY MOUTH EVERY EVENING Vimovo 500-20 mg oral tablet,IR,delayed rel,biphasic 06/10/2015 10/08/2015 take 1 tablet by oral route 2 times per day 30 minutes before meals for 30 days metoprolol succinate 100 mg oral tablet extended release 24 hr 06/18/2015 1 TABLET BY ORAL ROUTE 1 TIME PER DAY FOR 30 DAYS Forteo 20 mcg/dose - 600 mcg/2.4 mL subcutaneous pen injector inject 0.08 milliliter (20 mcg) by subcutaneous route once daily into the thigh or abdominal wall wheelchair miscellaneous device 07/04/2015 10/11/2015 use as [...] daily at the same time each day Vimovo 500-20 mg oral tablet,IR,delayed rel,biphasic 09/01/2015 take 1 tablet by oral route 2 times per day 30 minutes before meals for 30 days nortriptyline 10 mg oral capsule 09/16/2015 12/15/2015 take 1 capsule by oral route once a day (at bedtime) for 30 days hydrocodone-acetaminophen 10-325 mg oral tablet 09/23/2015 10/23/2015 take 1 tablet by oral route every [...] 08/27/2014 use as directed for 99 days Tarzan 5-325 mg oral tablet 06/17/2014 06/27/2014 take [...] 0.5 tab once daily for 1 day. Glucose test strips and lancets 08/14/2014 08/09/2015 Test bid metronidazole 500 mg oral tablet 08/28/2014 09/04/2014 [...] a day as needed for 30 days [id number]-[id number]-SY 3.5-10,000-1 mg/mL-unit/mL-% otic drops,suspension 201401/08/2015 instill 4 [...] daily before a meal for 30 days Zithromax Z-Simon 250 mg oral tablet 05/20/2015 05/25/2015 take 2 tablets ( 500 mg) by oral route once daily for 1 day then 1 tablet (250 mg) by oral route once daily for 4 days baclofen 10 mg oral tablet 06/17/2015 07/17/2015 1 TABLET BY ORAL ROUTE BEFORE BED PRN MUSCLE SPASM promethazine 25 mg oral tablet 06/17/2015 07/17/2015 take 1 tablet by oral route 2 times a day as needed for 30 days Discontinued Name Start Date [...] bedtime for 30 days per kaylynn increase lynnnth lidocaine 5 % topical adhesive patch,medicated 03/15/2014 [...] mg) by oral route every 12 hours Problem List Description Status Onset Anemia [...] HC BMI BSA BMI Percentile O2 Sat(%) 09/23/2015 2:36:00 PM 110 mmHg 70 mmHg [...] 07/17/2015 12:00 AM INFLUENZA A/B AG EIA Returned 07/28/2015 12:00 AM X-RAY EXAM OF PELVIS Returned 04/28/2011 12:00 AM THER/PROPH/DIAG INJ SC/IM Reviewed 04/28/2011 12:00 AM Decadron 1 mg ND#[id number] (Jr) Reviewed 04/28/2011 12:00 AM Depo-Medrol 80 mg NDC#[id number]-Glvpmzpv Reviewed 09/02/2015 12:00 AM Toradol 60 Mg ND#1734-9496-36 Reviewed 09/02/2015 12:00 AM Phenergan, Up to 50 Mg RHC Medicaid Reviewed 05/11/2011 12:00 AM N BLOCK INJ OCCIPITAL Reviewed 05/11/2011 12:00 AM Kenalog Ok-[address]-20 ANNA Reviewed 06/15/2011 12:00 AM COMPLETE CBC W/AUTO DIFF WBC Returned 06/15/2011 12:00 AM COMPREHEN METABOLIC PANEL Returned 07/08/2011 12:00 AM THER/PROPH/DIAG INJ SC/IM Reviewed 07/08/2011 12:00 AM Toradol,15mg ND#[id number], Brunildaer Reviewed 07/08/2011 12:00 AM Phenergan 50 Mg Im Nd 5366-2023-41 ALLIE Forreston Reviewed 08/02/2011 12:00 AM THER/PROPH/DIAG INJ SC/IM Reviewed 08/02/2011 12:00 AM Decadron 1 mg NDC#[id number] (Jr) Reviewed 08/02/2011 12:00 AM Depo-Medrol 80 mg NDC#[id number]-Dbgfblel Reviewed 09/27/2011 12:00 AM THER/PROPH/DIAG INJ SC/IM Reviewed 09/27/2011 12:00 AM Depo-Medrol 80 mg NDC#[id number]-Czrabord Reviewed 10/14/2011 12:00 AM X-RAY EXAM OF ABDOMEN Returned 10/14/2011 12:00 AM URINALYSIS AUTO W/O SCOPE Reviewed 12/23/2011 12:00 AM THER/PROPH/DIAG INJ SC/IM Reviewed 12/23/2011 12:00 AM Decadron 1 mg NDC#[id number] (Jr) Reviewed 12/23/2011 12:00 AM Depo-Medrol 80 mg NDC#[id number]-Sqsvhnva Reviewed 02/09/2012 12:00 AM THER/PROPH/DIAG INJ SC/IM Reviewed 02/09/2012 12:00 AM Decadron 1 mg NDC#[id number] (Jr) Reviewed 02/09/2012 12:00 AM Depo-Medrol 80 mg NDC#[id number]-Kpjczbpq Reviewed 03/15/2012 12:00 AM N BLOCK INJ OCCIPITAL Reviewed 03/15/2012 12:00 AM Kenalog Ps-[address]-20 ANNA Reviewed 04/11/2012 12:00 AM COMPLETE CBC W/AUTO DIFF WBC Returned 04/11/2012 12:00 AM COMPREHEN METABOLIC PANEL Returned 04/11/2012 12:00 AM LIPID PANEL Returned 04/11/2012 12:00 AM ASSAY THYROID STIM HORMONE Returned 06/20/2012 12:00 AM THER/PROPH/DIAG INJ SC/IM Reviewed 06/20/2012 12:00 AM Decadron, Per 1 Mg ND# [address]-32 Reviewed 06/20/2012 12:00 AM Depo-Medrol, Per 80 Mg NDC#1304-7465-73 Reviewed 09/06/2012 12:00 AM N BLOCK INJ OCCIPITAL Reviewed 09/06/2012 12:00 AM Kenalog [id number]-[id number] ANNA Reviewed 09/06/2012 12:00 AM X-RAY EXAM RIBS UNI 2 VIEWS Returned 09/26/2012 12:00 AM THER/PROPH/DIAG INJ SC/IM Reviewed 09/26/2012 12:00 AM Decadron, Per 1 Mg NDC# [address]-95 Reviewed 09/26/2012 12:00 AM Depo-Medrol, Per 80 Mg NDC#6045-8974-80 Reviewed 10/03/2012 12:00 AM URINALYSIS AUTO W/O SCOPE Reviewed 10/03/2012 12:00 AM THER/PROPH/DIAG INJ SC/IM Reviewed 10/03/2012 12:00 AM Toradol 60 Mg [facility]#7478-3454-93 Reviewed 10/03/2012 12:00 AM Phenergan, 25Mg ND#7972-6274-45 Reviewed 10/19/2012 12:00 AM N BLOCK INJ OCCIPITAL Reviewed 10/19/2012 12:00 AM Kenalog, Per 10 Mg ND#7975-6757-18 Reviewed 10/19/2012 12:00 AM Toradol 30 Mg ND#3757-3533-90 Reviewed 10/19/2012 12:00 AM THER/PROPH/DIAG INJ SC/IM Reviewed 10/31/2012 12:00 AM COMPLETE CBC W/AUTO DIFF WBC Returned 10/31/2012 12:00 AM COMPREHEN METABOLIC PANEL Returned 10/31/2012 12:00 AM LIPID PANEL Returned 11/03/2012 12:[address] THORAX W/O & W/DYE Returned 11/08/2012 12:00 AM N BLOCK INJ OCCIPITAL Reviewed 11/08/2012 12:00 AM Kenalog [id number]-[id number] ANNA Reviewed 11/27/2012 12:00 AM COMPLETE CBC [...] 01/25/2013 12:00 AM Decadron, Per 1 Mg [facility]# [address]-66 Reviewed 01/25/2013 12:00 AM Depo-Medrol, Per 80 Mg [facility]#8015-8458-37 Reviewed 01/26/2013 12:00 AM IMMUNOTHERAPY INJECTIONS Returned [...] 05/16/2013 12:00 AM Decadron, Per 1 Mg [facility]# [address]-53 Reviewed 05/16/2013 12:00 AM Depo-Medrol, Per 80 Mg [facility]#5113-5259-89 Reviewed 05/31/2013 12:00 AM IMMUNOTHERAPY INJECTIONS Reviewed 06/08/2013 12:00 AM IMMUNOTHERAPY INJECTIONS Reviewed 06/14/2013 12:00 AM IMMUNOTHERAPY INJECTIONS Reviewed 06/28/2013 12:00 AM IMMUNOTHERAPY INJECTIONS Reviewed 07/12/2013 12:00 AM X-RAY EXAM RIBS UNI 2 VIEWS Returned 07/18/2013 12:00 AM Toradol 60 Mg [facility]#1498-8749-19 Reviewed 07/18/2013 12:00 AM THER/PROPH/DIAG INJ SC/IM Reviewed 08/23/2013 12:00 AM COMPLETE CBC W/AUTO DIFF WBC Reviewed 08/23/2013 12:00 AM COMPREHEN METABOLIC PANEL Reviewed 08/23/2013 12:00 AM LIPID PANEL Reviewed 08/31/2013 12:00 AM X-RAY EXAM OF LOWER LEG Returned 09/04/2013 12:00 AM IMMUNOTHERAPY INJECTIONS Reviewed 09/14/2013 12:00 AM THER/PROPH/DIAG INJ SC/IM Reviewed 09/14/2013 12:00 AM Decadron, Per 1 Mg [facility]# [address]-97 Reviewed 09/14/2013 12:00 AM Depo-Medrol, Per 80 Mg [facility]#6292-4998-07 Reviewed 09/20/2013 12:00 AM IMMUNOTHERAPY INJECTIONS Reviewed [...] INJ OCCIPITAL Reviewed 12/10/2009 12:00 AM Kenalog Av-[id number] ANNA Reviewed 12/16/2009 12:00 AM HIV-1ANTIBODY Reviewed 12/16/2009 12:00 AM COMPLETE CBC W/AUTO DIFF WBC Reviewed 12/16/2009 12:00 AM METABOLIC PANEL TOTAL CA Reviewed 12/16/2009 12:00 AM Type and screen Reviewed 12/16/2009 12:00 AM PROTHROMBIN TIME Reviewed 12/16/2009 12:00 AM THROMBOPLASTIN TIME PARTIAL Reviewed 03/18/2010 12:00 AM DRAIN/INJ JOINT/BURSA W/O US Reviewed 03/18/2010 12:00 AM Kenalog Gu-[id number] ANNA Reviewed 11/21/2013 12:00 AM RADEX HAND MINIMUM 3 VIEWS Returned 06/03/2010 12:00 AM INJ TRIGGER POINT 1/2 MUSCL Reviewed 06/03/2010 12:00 AM Kenalog per 10Mg Im-[facility]#[address]-11(Niall) Reviewed 12/05/2013 12:00 AM COMPLETE CBC W/AUTO [...] Returned 06/18/2010 12:00 AM INJ TRIGGER POINT /2 MUSCL Reviewed 01/10/2014 12:00 AM Prolia, 1 [...] Reviewed 07/23/2010 12:00 AM Kenalog per 10Mg [facility]#[address]-55(Niall) Reviewed 2014 12:00 AM COMPLETE CBC W/AUTO [...] INJ OCCIPITAL Reviewed 10/01/2010 12:00 AM Kenalog Hw-[address]-20 ANNA Reviewed 07/25/2014 12:00 AM THER/PROPH/DIAG INJ [...] 0.60 mg/dLCALCIUM 10.90 mg/ dLeGFR >60 mL/min/1.73 [id number] 45.0 U/L 08/31/2013 10:54 AM GLUCOSE 255.0 [...] g/dLTOTAL BILI 0.50 mg/dLCALCIUM 10.10 mg/dLeGFR 60 HGB A1C 12.90 %Est Avg Glucose 323.5 mg/dLTSH 0.30 uIU/mLPROGESTERONE 0.10 ng/mLESTRADIOL 15.0 pg/ mLFSH 70.20 mIU/mLTRIGLYCERIDES 1990.0 mg/dLCHOLESTEROL 362.0 mg/dLHDL 21.0 mg/ dLLDL (CALC) INVALID MG/DLHep A Ab, IgM Negative [...] 12.0 mg/dLCREATININE 0.80 mg/dLCALCIUM 10.80 mg/dLeGFR 60 HGB A1C 6.0 %Est Avg Glucose [...] 0.40 mg/ dLCALCIUM 10.60 mg/dLeGFR >60 mL/min/1.73 [id number] 369.0 mg/ dLCHOLESTEROL 153.0 mg/dLHDL 26.0 mg/dLLDL [...] BILI 0.30 mg/dLCALCIUM 10.0 mg/dLeGFR >60 mL/min/1.73 [id number] YELLOW APPEARANCE CLEAR SPEC GRAV 1.010 pH 5.5 PROTEIN NEGATIVE GLUCOSE NEGATIVE KETONE NEGATIVE BILIRUBIN NEGATIVE BLOOD NEGATIVE NITRITE NEGATIVE LEUK SCREEN NEGATIVE HGB A1C 6.30 %Est Avg Glucose 134.1 mg/dLMICROALBUMIN UR <0.5 MG/DL 02/13/2015 4:38 PM RMSF, IgG, EIA Negative [facility] Spotted Fever,IgM 0.51 E. chaffeensis [...] 0.30 mg/dLCALCIUM 10.50 mg/dLeGFR >60 mL/min/ 1.73m 07/17/2015 11:30 AM INFLUENZA A & B NO INFLUENZA A OR B DETECTED 07/18/2015 11:32 AM WBC 18.1 RBC 4.28 HGB 13.20 g/dLHCT 39.50 %MCV 92.0 fLMCH 30.80 pgMCHC 33.40 g/dLRDW CV 14.0 %MPV 12.20 fLPLT 410 GLUCOSE 89.0 mg/ dLSODIUM 138.0 mmol/LPOTASSIUM 4.20 mmol/LCHLORIDE 103.0 mmol/LCO2 25.0 mmol/ LBUN 13.0 mg/dLCREATININE 0.80 mg/dLSGOT/AST 28.0 IU/LSGPT/ALT 31.0 IU/LALK PHOS 157.0 IU/LTOTAL PROTEIN 7.30 g/dLALBUMIN 4.70 g/dLTOTAL BILI 0.30 mg/ dLCALCIUM 10.30 mg/dLeGFR >60 mL/min/1.73mVITAMIN D 60.90 ng/mL 08/08/2015 10:12 AM GLUCOSE 130.0 mg/dLSODIUM 138.0 mmol/LPOTASSIUM 4.70 mmol/ LCHLORIDE 104.0 mmol/LCO2 24.0 mmol/LBUN 12.0 mg/dLCREATININE 0.80 mg/dLSGOT/ AST 27.0 IU/LSGPT/ALT 32.0 IU/LALK PHOS 159.0 IU/LTOTAL PROTEIN 7.20 g/ dLALBUMIN 4.60 g/dLTOTAL BILI 0.30 mg/dLCALCIUM 10.10 mg/dLeGFR >60 mL/min/ 1.73mPROTIME 10.90 secsINR 1.0 WBC 12.8 RBC 4.53 HGB 14.0 g/dLHCT 42.30 %MCV 93.0 fLMCH 30.90 pgMCHC 33.10 g/dLRDW CV 13.80 %MPV 11.90 fLPLT 384 %NEUT 61.0 % %LYMP 29.60 %%MONO 5.60 %%EOS 3.40 %%BASO 0.40 %#NEUT 7.83 #LYMP 3.79 #MONO 0.72 #EOS 0.43 #BASO 0.05 AFP, Serum, Tumor Marker 2.40 ng/mL 08/15/2015 12:02 PM WBC 12.9 RBC 4.35 HGB 13.70 g/dLHCT 40.40 %MCV 93.0 fLMCH 31.50 pgMCHC 33.90 g/dLRDW CV 13.20 %MPV 11.50 fLPLT 371 %NEUT 61.50 %%LYMP 30.20 %%MONO 4.70 %%EOS 2.60 %%BASO 0.60 %#NEUT 7.91 #LYMP 3.89 #MONO 0.61 #EOS 0.34 #BASO 0.08 GLUCOSE 181.0 mg/dLSODIUM 136.0 mmol/LPOTASSIUM 4.10 mmol/ LCHLORIDE 101.0 mmol/LCO2 23.0 mmol/LBUN 11.0 mg/dLCREATININE 0.80 mg/dLSGOT/ AST 38.0 IU/LSGPT/ALT 42.0 IU/LALK PHOS 172.0 IU/LTOTAL PROTEIN 7.40 g/ dLALBUMIN 4.70 g/dLTOTAL BILI 0.30 mg/dLCALCIUM 10.20 mg/dLeGFR >60 mL/min/ 1.73m 08/26/2015 10:08 AM MICROALBUMIN UR 6.0 ug/mLTRIGLYCERIDES 709.0 mg/ dLCHOLESTEROL 264.0 mg/dLHDL 15.0 mg/dLLDL 167.0 mg/dL 09/30/2015 2:40 PM GLUCOSE 129.0 mg/dLSODIUM 140.0 mmol/LPOTASSIUM 3.70 mmol/ LCHLORIDE 103.0 mmol/LCO2 26.0 mmol/LBUN 11.0 mg/dLCREATININE 0.80 mg/dLSGOT/ AST 30.0 IU/LSGPT/ALT 43.0 IU/LALK PHOS 149.0 IU/LTOTAL PROTEIN 7.40 g/ dLALBUMIN 4.50 g/dLTOTAL BILI 0.30 mg/dLCALCIUM 9.90 mg/dLeGFR >60 mL/min/1.73m VITAMIN D 46.50 ng/mLGLUCOSE 129.0 mg/dLSODIUM 140.0 mmol/LPOTASSIUM 3.70 mmol/ LCHLORIDE 103.0 mmol/LCO2 26.0 mmol/LBUN 11.0 mg/dLCREATININE 0.80 mg/dLSGOT/ AST 30.0 IU/LSGPT/ALT 43.0 IU/LALK PHOS 149.0 IU/LTOTAL PROTEIN 7.40 g/ dLALBUMIN 4.50 g/dLTOTAL BILI 0.30 mg/dLCALCIUM 9.90 mg/dLeGFR >60 mL/min/1.73m History Of Immunizations Name Date Admin Mfg Name Mfg Code Trade Name Lot# Route Inj Vis Given Vis Pub CVX Influenza 03/30/2011 Not Entered NE Not Entered Not Entered Not Entered 03/31/2011 05/30/2015 141 Influenza 04/24/2014 sanofi pasteur PMC Fluzone [id number] Intramuscular Left Upper Arm 02/27/2014 01/15/2014 141 Influenza 02/13/2015 sanofi pasteur PMC Fluzone [id number] Intramuscular Left Deltoid 02/13/2015 01/03/2015 140 Tdap [...] Tail bone pain Jul 30 2015 2:38PM Payers Insurance Name Company Name Plan Name Plan Number Policy Number Policy Group Number Start Date Medicare Part A Medicare [facility] [id number] N/A [facility] [id number] N/A Medicare Part A Medicare - [employer] [id number] N/A Medicare Part B Medicare Of [place] [id number] Monday, February 28, 2000 [place] [facility] [place] [facility] [place] [facility] [id number] Tuesday, November 10, 2009 Medicare Part A Medicare Part A [id number] N/A [place] [employer] [facility] [place] [employer] [place] [facility] [id number] [facility] [place] [facility] Plan of [id number] Wednesday, May 30, 2012 History of Encounters Visit Date Visit Type Provider 09/23/2015 Office visit Kaylynn Mendez AUTO LEASING MANAGER 09/16/[address] Pepe Figueroa MD 09/02/2015 Office visit Kaylynn Mendez AUTO LEASING MANAGER 09/01/2015 Office visit Kaylynn Mendez AUTO LEASING MANAGER 07/30/2015 Office visit Heean Dumont MD 07/15/2015 Office visit Kaylynn Mendez AUTO LEASING MANAGER 07/04/2015 Office visit Heena Dumont MD 06/06/2015 Office visit Heena Dumont MD 06/06/2015 Office visit Kaylynn Mendez AUTO LEASING MANAGER 06/02/2015 Office visit Kaylynn Mendez AUTO LEASING MANAGER 05/26/2015 Office visit Kaylynn Mendez AUTO LEASING MANAGER 05/20/2015 Office visit Kaylynn Mendez AUTO LEASING MANAGER 05/08/2015 Office visit Heena Dumont MD 05/06/2015 Office visit Kaylynn Mendez AUTO LEASING MANAGER 04/29/2015 Office visit Kaylynn Mendez AUTO LEASING MANAGER 03/27/2015 Voided Brittni Yanez AUTO LEASING MANAGER 03/21/2015 Office visit Heena Dumont MD 03/12/2015 Office visit Kaylynn Mendez AUTO LEASING MANAGER 02/26/2015 Office visit Brittni Yanez AUTO LEASING MANAGER 02/13/2015 Office visit Heena Dumont MD 01/15/2015 Office visit Brittni Yanez AUTO LEASING MANAGER 01/13/2015 Office visit Heena Dumont MD 01/08/[address] Carol Fowler MD 01/01/2015 Office visit Brittni Yanez AUTO LEASING MANAGER 12/13/2014 Office visit Heena Dumont MD 11/27/2014 Office visit Kaylynn Mendez AUTO LEASING MANAGER 11/14/2014 Office visit Heena Dumont MD 10/18/2014 Office visit Heena Dumont MD 10/17/2014 [facility] John Hoskins MD 10/09/2014 Office visit Heena Dumont MD 09/25/2014 Office visit Heena Dumont MD 09/17/2014 Office visit Kaylynn Mendez AUTO LEASING MANAGER 09/04/2014 Office visit Heena Dumont MD 08/28/2014 Office visit Kaylynn Mendez AUTO LEASING MANAGER 08/23/2014 [facility] John Hoskins MD 08/01/2014 Office visit Kaylynn Mendez AUTO LEASING MANAGER 07/29/2014 Office visit Heena Dumont MD 07/25/2014 Nurse visit Heena Dumont MD 07/17/2014 Office visit Kaylynn Mendez AUTO LEASING MANAGER 07/11/2014 Office visit Heena Dumont MD 07/01/2014 Office visit Heena Dumont MD 06/25/2014 Office visit Kaylynn Mendez AUTO LEASING MANAGER 06/12/2014 Office visit Kaylynn Mendez AUTO LEASING MANAGER 06/06/2014 Office visit Kaylynn Mendez AUTO LEASING MANAGER 05/27/2014 Office visit Heena Dumont MD 04/20/2014 Office visit Yesica Falcon AUTO LEASING MANAGER 03/29/2014 Office visit Na Jones AUTO LEASING MANAGER 03/15/2014 Office visit Heena Dumont MD 2014 Office visit Heena Dumont MD 2014 [facility] John Hoskins MD 02/27/2014 Nurse visit Heena Dumont MD 02/13/2014 Office visit Lena El AUTO LEASING MANAGER 02/07/2014 Office visit Heena Dumont MD 02/03/2014 Office visit Na Jones AUTO LEASING MANAGER 01/30/2014 Office visit Kaylynn Mendez AUTO LEASING MANAGER 01/24/2014 Office visit Sundeep Russell AUTO LEASING MANAGER 01/16/2014 Office visit Kaylynn Mendez AUTO LEASING MANAGER 01/10/2014 Nurse visit Kaylynn Mendez AUTO LEASING MANAGER 01/08/2014 Office visit Kaylynn Walker AUTO LEASING MANAGER 12/05/2013 Office visit Kaylynn Mendez AUTO LEASING MANAGER 11/21/2013 Office visit Kaylynn Mendez AUTO LEASING MANAGER 10/23/2013 Office visit Brittni Yanez AUTO LEASING MANAGER 10/17/2013 Nurse visit Heena Dumont MD 10/12/2013 Office visit Kaylynn Mendez AUTO LEASING MANAGER 10/02/2013 Office visit Heena Dumont MD 09/20/2013 Nurse visit Kaylynn Mendez AUTO LEASING MANAGER 09/20/2013 Voided Heena Dumont MD 09/14/2013 Office visit Kaylynn Mendez AUTO LEASING MANAGER 09/05/2013 Office visit Sundeep Russell AUTO LEASING MANAGER 09/04/2013 Nurse visit Kaylynn Mendez AUTO LEASING MANAGER 08/31/2013 Office visit Kaylynn Mendez AUTO LEASING MANAGER 08/23/2013 Office visit Heena Dumont MD 08/10/2013 Office visit Kaylynn Mendez AUTO LEASING MANAGER 07/25/2013 Office visit Kaylynn Mendez AUTO LEASING MANAGER 07/18/2013 Office visit Kaylynn Walker AUTO LEASING MANAGER 07/12/2013 Office visit Kaylynn Walker AUTO LEASING MANAGER 06/28/2013 Nurse visit Kaylynn Walker AUTO LEASING MANAGER 06/14/2013 Nurse visit Kaylynn Walker AUTO LEASING MANAGER 06/08/2013 Nurse visit Kaylynn Walker AUTO LEASING MANAGER 05/31/2013 Nurse visit Chadd Norris DO 05/18/2013 Office visit Terese Davidson MD 05/16/2013 Office visit Kaylynn Walker AUTO LEASING MANAGER 05/09/2013 Office visit Kaylynn Walker AUTO LEASING MANAGER 04/29/2013 Hospital John Hoskins MD 04/25/2013 Nurse visit Kaylynn Walker AUTO LEASING MANAGER 04/17/2013 Office visit Kaylynn Walker AUTO LEASING MANAGER 04/03/2013 Nurse visit Kaylynn Walker AUTO LEASING MANAGER 04/03/2013 Office visit Terese Davidson MD 03/28/2013 Office visit Sundeep Russell AUTO LEASING MANAGER 03/21/2013 Office visit Kaylynn Walker AUTO LEASING MANAGER 03/20/2013 Office visit Terese Davidson MD 03/14/2013 Nurse visit Kaylynn Walker AUTO LEASING MANAGER 03/05/2013 Nurse visit Kaylynn Walker AUTO LEASING MANAGER 02/19/2013 Office visit Terese Davidson MD 02/16/2013 Nurse visit Kaylynn Walker AUTO LEASING MANAGER 02/09/2013 Office visit Sundeep Russell AUTO LEASING MANAGER 02/08/2013 Nurse visit Kaylynn Walker AUTO LEASING MANAGER 02/01/2013 Nurse visit Kaylynn Walker AUTO LEASING MANAGER 01/26/2013 Nurse visit Sabrina Mendez SLITTER HELPER 01/25/2013 Office visit Kaylynn Walker AUTO LEASING MANAGER 01/22/2013 Office visit Yoan Castaneda MD 01/18/2013 Nurse visit Kaylynn Walker AUTO LEASING MANAGER 01/11/2013 Nurse visit Kaylynn Walker AUTO LEASING MANAGER 01/05/2013 Nurse visit Kaylynn Walker AUTO LEASING MANAGER 12/29/2012 Office visit Kaylynn Walker AUTO LEASING MANAGER 11/27/2012 Office visit Kaylynn Mendez AUTO LEASING MANAGER 11/08/2012 Office visit Odell Tierney MD 11/08/2012 Voided Odell Tierney MD 11/07/2012 Office visit Kaylynn Walker AUTO LEASING MANAGER 10/31/2012 [facility] John Hoskins MD 10/31/2012 Office visit Kaylynn Walker AUTO LEASING MANAGER 10/19/2012 Office visit Genoveva Ayala AUTO LEASING MANAGER 10/10/2012 Office visit Kaylynn Walker AUTO LEASING MANAGER 10/03/2012 Office visit Kaylynn Walker AUTO LEASING MANAGER 09/26/2012 Office visit Kaylynn Walker AUTO LEASING MANAGER 09/06/2012 Office visit Kaylynn Walker AUTO LEASING MANAGER 09/06/2012 Office visit Odell Tierney MD 08/31/2012 Voided Kaylynn Mendez AUTO LEASING MANAGER 07/28/2012 Office visit Kaylynn Andrea AUTO LEASING MANAGER 07/27/2012 Office visit David Ar DO 07/20/2012 Hospital David Joyner DO 07/13/2012 Hospital David Ar DO 07/11/2012 Office visit Kaylynn Mendez AUTO LEASING MANAGER 06/27/2012 [facility] Odell Tierney MD 06/21/2012 Office visit David Joyner DO 06/21/2012 Office visit Odell Tierney MD 06/20/2012 Office visit Brittni Yanez AUTO LEASING MANAGER 06/06/2012 Office visit Odell Tierney MD 05/03/2012 Office visit Kaylynn Mendez AUTO LEASING MANAGER 04/28/2012 Office visit Brittni Yanez AUTO LEASING MANAGER 04/11/2012 Office visit Kaylynn Mendez AUTO LEASING MANAGER 04/06/2012 Hospital John Hoskins MD 03/30/2012 Office visit Kaylynn Mendez AUTO LEASING MANAGER 03/15/2012 Office visit Kaylynn Mendez AUTO LEASING MANAGER 03/15/2012 Office visit Odell Tierney MD 02/09/2012 Office visit Kaylynn Mendez AUTO LEASING MANAGER 12/23/2011 Office visit Kaylynn Mendez AUTO LEASING MANAGER 11/02/2011 Office visit Kaylynn Mendez AUTO LEASING MANAGER 10/14/2011 Office visit Kaylynn Mendez AUTO LEASING MANAGER 09/27/2011 Office visit Kaylynn Mendez AUTO LEASING MANAGER 08/19/2011 Hospital John Hoskins MD 08/18/2011 Hospital John Hoskins MD 08/18/2011 Office visit Kaylynn Mendez AUTO LEASING MANAGER 08/02/2011 Office visit Kaylynn Mendez AUTO LEASING MANAGER 07/08/2011 Office visit Kaylynn Mendez AUTO LEASING MANAGER 07/05/2011 Office visit Odell Tierney MD 06/15/2011 Office visit Kaylynn Mendez AUTO LEASING MANAGER 05/14/2011 Office visit Kaylynn Mendez AUTO LEASING MANAGER 05/11/2011 Office visit Odell Tierney MD 04/28/2011 Office visit Kaylynn Mendez AUTO LEASING MANAGER 03/02/2011 Office visit Chadd Norris DO [...]
--- OUTSIDE RECORDS SUMMARY | 2018-05-09 15:47 | XMS REPORT ---
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 oxycodone 5 mg oral tablet 04/11/2015 05/11/2015 take 1 tablet by oral route every 12 hours for 30 days promethazine 50 mg oral tablet 04/29/2015 take 1 tablet (50 mg) by oral route once daily at bedtime Levaquin 750 mg oral tablet 05/06/2015 05/13/2015 take 1 tablet (750 mg) by oral route once daily for 7 days promethazine-DM 6.25-15 mg/5 mL oral syrup 05/06/2015 take 5 milliliters by oral route every 4 hours as needed Vimovo 500-20 mg oral tablet,IR & delay rel,biphasic 05/08/2015 09/05/2015 take 1 tablet by oral route 2 times per day 30 minutes before meals for 30 days clobetasol-emollient 0.05 % topical foam 05/08/2015 09/05/2015 apply by external route once daily Name Start Date Expiration Date SIG Comments [...] 08/27/2014 use as directed for 99 days [place] 5-325 mg oral tablet 06/17/2014 06/27/2014 take [...] a day as needed for 30 days [id number]-[id number]-WF 3.5-10,000-1 mg/mL-unit/mL-% otic drops,suspension 201401/08/2015 instill 4 [...] ORAL ROUTE BEFORE BED PRN MUSCLE SPASM Discontinued Name Start Date Discontinued Date SIG [...] oral route [address] Annabel Mcgill DS Oral 160-800 mg Oral Tablet 11/06/2009 [...] days per kaylynn increase strenth lidocaine 5 %(700 mg/patch) topical adhesive patch,medicated 03/15/201405/27 apply 1 patch by transdermal route once [...] days Pt. reports not having the seizures Problem List Description Status Onset Anemia Active [...] HC BMI BSA BMI Percentile O2 Sat(%) 05/08/2015 4:11:00 PM 118 mmHg 74 mmHg [...] F 157 lbs 63 in 27.811 kg/m 1.78 m2 100 % 04/20/2014 9:42:00 AM 132 mmHg 72 mmHg 114 bpm 18 rpm 97.4 F 165 lbs 63 in 29.23 kg/m2 1.8239 m 97 % 03/29/2014 5:23:00 PM 122 mmHg 72 mmHg 74 bpm 20 rpm 97.8 F 158 lbs 63 in 27.9882 kg/m 1.78 m2 03/15/2014 10:29:00 AM 116 mmHg 60 mmHg 120 bpm 18 rpm 98 F 156 lbs 63 in 27.63 kg/m2 1.7735 m 2014 3:17:00 PM 102 mmHg 60 mmHg 95 bpm 18 rpm 96.8 F 158 lbs 63 in 27.9882 kg/m 1.78 m2 95 % 02/13/2014 1:48:00 PM 106 mmHg 66 mmHg 86 bpm 97.4 F 159 lbs 63 in 28.17 kg/m2 1.7905 m 02/07/2014 3:06:00 PM 118 mmHg 68 mmHg 107 bpm 18 rpm 96.5 F 157 lbs 63 in 27.811 kg/m 1.78 m2 93 % 02/03/2014 2:15:00 PM 92 mmHg 58 mmHg 104 bpm 18 rpm 97.3 F 153.187 lbs 64 in 26.29 kg/m2 1.7713 m 93 % 01/30/2014 1:56:00 PM 124 mmHg 62 mmHg 90 bpm 18 rpm 97.8 F 157.25 lbs 63 in 27.8553 kg/m 1.78 m2 95 % 01/24/2014 5:04:00 PM 94 mmHg 62 mmHg 86 bpm 18 rpm 98.2 F 164.125 lbs 63 in 29.07 kg/m2 1.8191 m 93 % 01/16/2014 2:27:00 PM 126 mmHg 74 mmHg 100 bpm 18 rpm 161 lbs 64 in 27.6353 kg/m 1.82 m2 99 % 01/08/2014 2:23:00 PM 132 mmHg 66 mmHg 102 bpm 18 rpm 97.8 F 157 lbs 64 in 26.95 kg/m2 1.7932 m 98 % 12/05/2013 9:42:00 AM 134 mmHg 66 mmHg 97 bpm 18 rpm 97.6 F 161.25 lbs 64 in 27.6782 kg/m 1.82 m2 99 % 11/21/2013 3:06:00 PM 126 mmHg 66 mmHg 112 bpm 18 rpm 98.1 F 167 lbs 64 in 28.67 kg/m2 1.8495 m 98 % 10/23/2013 2:20:00 PM [...] 12:00 AM INFLUENZA A/B AG EIA Returned 04/28/2011 12:00 AM THER/PROPH/DIAG INJ SC/IM Reviewed 04/28/2011 12:00 AM Decadron 1 mg [facility]#[id number] (Jr) Reviewed 04/28/2011 12:00 AM Depo-Medrol 80 mg ND#[id number]-Hhedomcf Reviewed 05/11/2011 12:00 AM N BLOCK INJ OCCIPITAL Reviewed 05/11/2011 12:00 AM Kenalog Hi-[address]-1963-20 ANNA Reviewed 06/15/2011 12:00 AM COMPLETE CBC W/AUTO DIFF WBC Returned 06/15/2011 12:00 AM COMPREHEN METABOLIC PANEL Returned 07/08/2011 12:00 AM THER/PROPH/DIAG INJ SC/IM Reviewed 07/08/2011 12:00 AM Toradol,15mg ND#[id number], [place] Reviewed 07/08/2011 12:00 AM Phenergan 50 Mg Im Nd 6841-6351-29 FP [place] Reviewed 08/02/2011 12:00 AM THER/PROPH/DIAG INJ SC/IM Reviewed 08/02/2011 12:00 AM Decadron 1 mg NDC#[id number] (Jr) Reviewed 08/02/2011 12:00 AM Depo-Medrol 80 mg NDC#[id number]-Txvjkvcf Reviewed 09/27/2011 12:00 AM THER/PROPH/DIAG INJ SC/IM Reviewed 09/27/2011 12:00 AM Depo-Medrol 80 mg NDC#[id number]-Nopyzgcf Reviewed 10/14/2011 12:00 AM X-RAY EXAM OF ABDOMEN Returned 10/14/2011 12:00 AM URINALYSIS AUTO W/O SCOPE Reviewed 12/23/2011 12:00 AM THER/PROPH/DIAG INJ SC/IM Reviewed 12/23/2011 12:00 AM Decadron 1 mg NDC#[id number] (Jr) Reviewed 12/23/2011 12:00 AM Depo-Medrol 80 mg NDC#[id number]-Kfqzdvlr Reviewed 02/09/2012 12:00 AM THER/PROPH/DIAG INJ SC/IM Reviewed 02/09/2012 12:00 AM Decadron 1 mg NDC#[id number] (Jr) Reviewed 02/09/2012 12:00 AM Depo-Medrol 80 mg NDC#[id number]-Yelmjwht Reviewed 03/15/2012 12:00 AM N BLOCK INJ OCCIPITAL Reviewed 03/15/2012 12:00 AM Kenalog Nt-[address]-20 ANNA Reviewed 04/11/2012 12:00 AM COMPLETE CBC W/AUTO DIFF WBC Returned 04/11/2012 12:00 AM COMPREHEN METABOLIC PANEL Returned 04/11/2012 12:00 AM LIPID PANEL Returned 04/11/2012 12:00 AM ASSAY THYROID STIM HORMONE Returned 06/20/2012 12:00 AM THER/PROPH/DIAG INJ SC/IM Reviewed 06/20/2012 12:00 AM Decadron, Per 1 Mg ND# [address]-61 Reviewed 06/20/2012 12:00 AM Depo-Medrol, Per 80 Mg ND#3413-4164-71 Reviewed 09/06/2012 12:00 AM N BLOCK INJ OCCIPITAL Reviewed 09/06/2012 12:00 AM Kenalog Tr-[address]-20 ANNA Reviewed 09/06/2012 12:00 AM X-RAY EXAM RIBS UNI 2 VIEWS Returned 09/26/2012 12:00 AM THER/PROPH/DIAG INJ SC/IM Reviewed 09/26/2012 12:00 AM Decadron, Per 1 Mg ND# [address]-35 Reviewed 09/26/2012 12:00 AM Depo-Medrol, Per 80 Mg ND#7915-9437-44 Reviewed 10/03/2012 12:00 AM URINALYSIS AUTO W/O SCOPE Reviewed 10/03/2012 12:00 AM THER/PROPH/DIAG INJ SC/IM Reviewed 10/03/2012 12:00 AM Toradol 60 Mg ND#0088-0449-71 Reviewed 10/03/2012 12:00 AM Phenergan, 25Mg ND#6976-1227-12 Reviewed 10/19/2012 12:00 AM N BLOCK INJ OCCIPITAL Reviewed 10/19/2012 12:00 AM Kenalog, Per 10 Mg ND#3057-3741-45 Reviewed 10/19/2012 12:00 AM Toradol 30 Mg ND#7109-0793-98 Reviewed 10/19/2012 12:00 AM THER/PROPH/DIAG INJ SC/IM Reviewed 10/31/2012 12:00 AM COMPLETE CBC W/AUTO DIFF WBC Returned 10/31/2012 12:00 AM COMPREHEN METABOLIC PANEL Returned 10/31/2012 12:00 AM LIPID PANEL Returned 11/03/2012 12:[address] THORAX W/O & W/DYE Returned 11/08/2012 12:00 AM N BLOCK INJ OCCIPITAL Reviewed 11/08/2012 12:00 AM Kenalog Ze-[address]-20 ANNA Reviewed 11/27/2012 12:00 AM COMPLETE CBC [...] 12:00 AM Decadron, Per 1 Mg [facility]# [address]-58 Reviewed 01/25/2013 12:00 AM Depo-Medrol, Per 80 Mg [facility]#5768-5283-38 Reviewed 01/26/2013 12:00 AM IMMUNOTHERAPY INJECTIONS Returned [...] 12:00 AM Decadron, Per 1 Mg [facility]# [address]-58 Reviewed 05/16/2013 12:00 AM Depo-Medrol, Per 80 Mg [facility]#2446-5946-43 Reviewed 05/31/2013 12:00 AM IMMUNOTHERAPY INJECTIONS Reviewed 06/08/2013 12:00 AM IMMUNOTHERAPY INJECTIONS Reviewed 06/14/2013 12:00 AM IMMUNOTHERAPY INJECTIONS Reviewed 06/28/2013 12:00 AM IMMUNOTHERAPY INJECTIONS Reviewed 07/12/2013 12:00 AM X-RAY EXAM RIBS UNI 2 VIEWS Returned 07/18/2013 12:00 AM Toradol 60 Mg [facility]#9738-9446-25 Reviewed 07/18/2013 12:00 AM THER/PROPH/DIAG INJ SC/IM Reviewed 08/23/2013 12:00 AM COMPLETE CBC W/AUTO DIFF WBC Reviewed 08/23/2013 12:00 AM COMPREHEN METABOLIC PANEL Reviewed 08/23/2013 12:00 AM LIPID PANEL Reviewed 08/31/2013 12:00 AM X-RAY EXAM OF LOWER LEG Returned 09/04/2013 12:00 AM IMMUNOTHERAPY INJECTIONS Reviewed 09/14/2013 12:00 AM THER/PROPH/DIAG INJ SC/IM Reviewed 09/14/2013 12:00 AM Decadron, Per 1 Mg [facility]# [address]-82 Reviewed 09/14/2013 12:00 AM Depo-Medrol, Per 80 Mg [facility]#9219-0067-59 Reviewed 09/20/2013 12:00 AM IMMUNOTHERAPY INJECTIONS Reviewed [...] INJ OCCIPITAL Reviewed 12/10/2009 12:00 AM Kenalog Vo-[address]-20 ANNA Reviewed 12/16/2009 12:00 AM HIV-1ANTIBODY Reviewed 12/16/2009 12:00 AM COMPLETE CBC W/AUTO DIFF WBC Reviewed 12/16/2009 12:00 AM METABOLIC PANEL TOTAL CA Reviewed 12/16/2009 12:00 AM Type and screen Reviewed 12/16/2009 12:00 AM PROTHROMBIN TIME Reviewed 12/16/2009 12:00 AM THROMBOPLASTIN TIME PARTIAL Reviewed 03/18/2010 12:00 AM DRAIN/INJ JOINT/BURSA W/O US Reviewed 03/18/2010 12:00 AM Kenalog Yx-[address]-20 ANNA Reviewed 11/21/2013 12:00 AM RADEX HAND MINIMUM 3 VIEWS Returned 06/03/2010 12:00 AM INJ TRIGGER POINT 1/2 MUSCL Reviewed 06/03/2010 12:00 AM Kenalog per 10Mg Im-Ndc#[address]-67(Niall) Reviewed 12/05/2013 12:00 AM COMPLETE CBC W/AUTO [...] Reviewed 07/23/2010 12:00 AM Kenalog per 10Mg Im-Ndc#[address]-76(Niall) Reviewed 2014 12:00 AM COMPLETE CBC W/AUTO [...] INJ OCCIPITAL Reviewed 10/01/2010 12:00 AM Kenalog Mz-[address]-20 ANNA Reviewed 07/25/2014 12:00 AM THER/PROPH/DIAG INJ [...] 0.60 mg/dLCALCIUM 10.90 mg/ dLeGFR >60 mL/min/1.73 [id number] 45.0 U/L 08/31/2013 10:54 AM GLUCOSE 255.0 [...] 0.40 mg/ dLCALCIUM 10.60 mg/dLeGFR >60 mL/min/1.73 [id number] 369.0 mg/ dLCHOLESTEROL 153.0 mg/dLHDL 26.0 mg/dLLDL [...] BILI 0.30 mg/dLCALCIUM 10.0 mg/dLeGFR >60 mL/min/1.73 [id number] YELLOW APPEARANCE CLEAR SPEC GRAV 1.010 pH 5.5 PROTEIN NEGATIVE GLUCOSE NEGATIVE KETONE NEGATIVE BILIRUBIN NEGATIVE BLOOD NEGATIVE NITRITE NEGATIVE LEUK SCREEN NEGATIVE Est Avg Glucose 134.1 mg/dLMICROALBUMIN UR <0.5 MG/DL 02/13/2015 4:38 PM RMSF, IgG, EIA Negative Dejuan [facility] Spotted Fever,IgM 0.51 E. [...] B NO INFLUENZA A OR B DETECTED History Of Immunizations Name Date Admin [facility] Name Mf Code Trade Name Lot# Route Inj Vis Given Vis Pub CVX Influenza 03/30/2011 Not Entered NE Not Entered Not Entered Not Entered 03/31/2011 05/30/2015 141 Influenza 04/24/2014 sanofi pasteur PMC Fluzone [id number] Intramuscular Left Upper Arm 02/27/2014 01/15/2014 141 Influenza 02/13/2015 sanofi pasteur PMC Fluzone [id number] Intramuscular Left Deltoid 02/13/2015 01/03/2015 140 History [...] 3:51PM Tendon dysfunction Feb 2014 3:51PM Osteoporosis Feb 2014 3:51PM Elevated liver enzymes b 2014 3:51PM Sternal pain Jul 11 2014 4:22PM Right Otitis Media, Acute Jul 17 2014 10:04AM Asthma b 2014 10:04AM Headache b 2014 4:46PM Fall as cause of accidental injury in home as place of occurrence, initial encounter Jul 18 2014 4:46PM Ankle instability, left Feb 2014 11:30AM Ankle pain b 2014 11:30AM History of fall Jul 23 2014 11:30AM Headache b 2014 11:30AM Osteoporosis b 2014 2:09PM Post concussion syndrome Jul 29 2014 3:46PM Fall Jul 29 2014 3:46PM Spinal stenosis Jul 29 2014 3:46PM Ankle pain, chronic, left Feb 2014 4:22PM Vertigo b 12 2014 4:22PM [...] 10:50AM Pyloric stenosis May 09 2015 10:50AM Payers Insurance Name Company Name Plan Name Plan Number Policy Number Policy Group Number Start Date Medicare Part A Medicare Part A [id number] N/A [facility] - Community Plan [facility] RHC Comm [id number] N/A [place] [employer] - R[place] [employer] - RHC [id number] May [facility] Comm Plan of [id number] Wednesday, 2012 Medicare Part B Medicare Of [place] [id number] Monday, 2000 [place] [employer] [place] [employer] [place] [id number] Tuesday, 2009 History of Encounters Visit Date Visit Type Provider 05/08/2015 Office visit Heena Dumont MD 05/06/2015 Office visit Kaylynn Mendez VESSEL MASTER 04/29/2015 Office visit Kaylynn Mendez VESSEL MASTER 03/27/2015 Voided Brittni Yanez VESSEL MASTER 03/21/2015 Office visit Heena Dumont MD 03/12/2015 Office visit Kaylynn Mendez VESSEL MASTER 02/26/2015 Office visit Brittni Yanez VESSEL MASTER 02/13/2015 Office visit Heena Dumont MD 01/15/2015 Office visit Brittni Yanez VESSEL MASTER 01/13/2015 Office visit Heena Dumont MD 01/08/[address] Carol Fowler MD 01/01/2015 Office visit Brittni Yanez VESSEL MASTER 12/13/2014 Office visit Heena Dumont MD 11/27/2014 Office visit Kaylynn Mendez VESSEL MASTER 11/14/2014 Office visit Heena Dumont MD 10/18/2014 Office visit Heena Dumont MD 10/17/2014 [facility] Eliseo Hoskins MD 10/09/2014 Office visit Heena Dumont MD 09/25/2014 Office visit Heena Dumont MD 09/17/2014 Office visit Kaylynn Mendez VESSEL MASTER 09/04/2014 Office visit Heena Dumont MD 08/28/2014 Office visit Kaylynn Mendez VESSEL MASTER 08/23/2014 [facility] John Hoskins MD 08/01/2014 Office visit Kaylynn Mendez VESSEL MASTER 07/29/2014 Office visit Heena Dumont MD 07/25/2014 Nurse visit Heena Dumont MD 07/17/2014 Office visit Kaylynn Menedz VESSEL MASTER 07/11/2014 Office visit Heena Dumont MD 07/01/2014 Office visit Heena Dumont MD 06/25/2014 Office visit Kaylynn Mendez VESSEL MASTER 06/12/2014 Office visit Kaylynn Walker VESSEL MASTER 06/06/2014 Office visit Kaylynn Walker VESSEL MASTER 05/27/2014 Office visit Heena Dumont MD 04/20/2014 Office visit Yesica Falcon VESSEL MASTER 03/29/2014 Office visit Na Jones VESSEL MASTER 03/15/2014 Office visit Heena Dumont MD 2014 Office visit Heena Dumont MD 2014 [facility] John Hoskins MD 02/27/2014 Nurse visit Heena Dumont MD 02/13/2014 Office visit Lena El VESSEL MASTER 02/07/2014 Office visit Heena Dumont MD 02/03/2014 Office visit Na Jones VESSEL MASTER 01/30/2014 Office visit Kaylynn Mendez VESSEL MASTER 01/24/2014 Office visit Sundeep Russell VESSEL MASTER 01/16/2014 Office visit Kaylynn Mendez VESSEL MASTER 01/10/2014 Nurse visit Kaylynn Walker VESSEL MASTER 01/08/2014 Office visit Kaylynn Walker VESSEL MASTER 12/05/2013 Office visit Kaylynn Mendez VESSEL MASTER 11/21/2013 Office visit Kaylynn Mendez VESSEL MASTER 10/23/2013 Office visit Brittni Yanez VESSEL MASTER 10/17/2013 Nurse visit Heena Dumont MD 10/12/2013 Office visit Kaylynn Mendez VESSEL MASTER 10/02/2013 Office visit Heena Dumont MD 09/20/2013 Nurse visit Kaylynn Mendez VESSEL MASTER 09/20/2013 Voided Heena Dumont MD 09/14/2013 Office visit Kaylynn Walker VESSEL MASTER 09/05/2013 Office visit Sundeep Russell VESSEL MASTER 09/04/2013 Nurse visit Kaylynn Walker VESSEL MASTER 08/31/2013 Office visit Kaylynn Mendez VESSEL MASTER 08/23/2013 Office visit Heena Dumont MD 08/10/2013 Office visit Kaylynn Mendez VESSEL MASTER 07/25/2013 Office visit Kaylynn Walker VESSEL MASTER 07/18/2013 Office visit Kaylynn Walker VESSEL MASTER 07/12/2013 Office visit Kaylynn Walker VESSEL MASTER 06/28/2013 Nurse visit Kaylynn Walker VESSEL MASTER 06/14/2013 Nurse visit Kaylynn Walker VESSEL MASTER 06/08/2013 Nurse visit Kaylynn Walker VESSEL MASTER 05/31/2013 Nurse visit Chadd Norris DO 05/18/2013 Office visit Terese Davidson MD 05/16/2013 Office visit Kaylynn Walker VESSEL MASTER 05/09/2013 Office visit Kaylynn Walker VESSEL MASTER 04/29/2013 [facility] John Hoskins MD 04/25/2013 Nurse visit Kaylynn Walker VESSEL MASTER 04/17/2013 Office visit Kaylynn Walker VESSEL MASTER 04/03/2013 Nurse visit Kaylynn Walker VESSEL MASTER 04/03/2013 Office visit Terese Davidson MD 03/28/2013 Office visit Sundeep Russell VESSEL MASTER 03/21/2013 Office visit Kaylynn Mendez VESSEL MASTER 03/20/2013 Office visit Terese Davidson MD 03/14/2013 Nurse visit Kaylynn Walker VESSEL MASTER 03/05/2013 Nurse visit Kaylynn Walker VESSEL MASTER 02/19/2013 Office visit Terese Davidson MD 02/16/2013 Nurse visit Kaylynn Walker VESSEL MASTER 02/09/2013 Office visit Sundeep Russell VESSEL MASTER 02/08/2013 Nurse visit Kaylynn Walker VESSEL MASTER 02/01/2013 Nurse visit Kaylynn Walker VESSEL MASTER 01/26/2013 Nurse visit Sabrina Andrea GUITAR REPAIRER 01/25/2013 Office visit Kaylynn Walker VESSEL MASTER 01/22/2013 Office visit Yoan Castaneda MD 01/18/2013 Nurse visit Kaylynn Walker VESSEL MASTER 01/11/2013 Nurse visit Kaylynn Walker VESSEL MASTER 01/05/2013 Nurse visit Kaylynn Walker VESSEL MASTER 12/29/2012 Office visit Kaylynn Walker VESSEL MASTER 11/27/2012 Office visit Kaylynn Mendez VESSEL MASTER 11/08/2012 Office visit Odell Tierney MD 11/08/2012 Voided Odell Tierney MD 11/07/2012 Office visit Kaylynn Mendez VESSEL MASTER 10/31/2012 [facility] John Hoskins MD 10/31/2012 Office visit Kaylynn Walker VESSEL MASTER 10/19/2012 Office visit Genoveva Ayala VESSEL MASTER 10/10/2012 Office visit Kaylynn Walker VESSEL MASTER 10/03/2012 Office visit Kaylynn Walker VESSEL MASTER 09/26/2012 Office visit Kaylynn Walker VESSEL MASTER 09/06/2012 Office visit Kaylynn Walker VESSEL MASTER 09/06/2012 Office visit Odell Tierney MD 08/31/2012 Voided Kaylynn Mendez VESSEL MASTER 07/28/2012 Office visit Kaylynn Mendez VESSEL MASTER 07/27/2012 Office visit Davidaziza Joyner DO 07/20/2012 Hospital David Sherifftom DO 07/13/2012 Hospital David Joyner DO 07/11/2012 Office visit Kaylynn Mendez VESSEL MASTER 06/27/2012 [facility] Odell Tierney MD 06/21/2012 Office visit David Joyner DO 06/21/2012 Office visit Odell Tierney MD 06/20/2012 Office visit Brittni Yanez VESSEL MASTER 06/06/2012 Office visit Odell Tierney MD 05/03/2012 Office visit Kaylynn Mendez VESSEL MASTER 04/28/2012 Office visit Brittni Yanez VESSEL MASTER 04/11/2012 Office visit Kaylynn Mendez VESSEL MASTER 04/06/2012 Hospital John Hoskins MD 03/30/2012 Office visit Kaylynn Mendez VESSEL MASTER 03/15/2012 Office visit Kaylynn Mendez VESSEL MASTER 03/15/2012 Office visit Odell Tierney MD 02/09/2012 Office visit Kaylynn Mendez VESSEL MASTER 12/23/2011 Office visit Kaylynn Mendez VESSEL MASTER 11/02/2011 Office visit Kaylynn Mendez VESSEL MASTER 10/14/2011 Office visit Kaylynn Mendez VESSEL MASTER 09/27/2011 Office visit Kaylynn Mendez VESSEL MASTER 08/19/2011 Hospital John Hoskins MD 08/18/2011 Hospital John Hoskins MD 08/18/2011 Office visit Kaylynn Mendez VESSEL MASTER 08/02/2011 Office visit Kaylynn Mendez VESSEL MASTER 07/08/2011 Office visit Kaylynn Mendez VESSEL MASTER 07/05/2011 Office visit Odell Tierney MD 06/15/2011 Office visit Kaylynn Mendez VESSEL MASTER 05/14/2011 Office visit Kaylnyn Mendez VESSEL MASTER 05/11/2011 Office visit Odell Tierney MD 04/28/2011 Office visit Kaylynn Mendez VESSEL MASTER 03/02/2011 Office visit Chadd Norris DO 02/17/2011 [...]
--- OUTSIDE RECORDS SUMMARY | 2018-05-09 15:52 | XMS REPORT ---
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 OneTouch Delica Lancets 33 gauge miscellaneous [facility] 01/21/2016 use as directed cetirizine 10 mg [...] EVERY DAY hydrocodone-acetaminophen 10-325 mg oral tablet 07/27/2016 08/26/2016 take 1 tablet by oral route every 6 hours for 30 days May fill 08/02/16 Name Start Date Expiration Date SIG Comments [...] 08/27/2014 use as directed for 99 days Ferdinand 5-325 mg oral tablet 06/17/2014 06/27/2014 take [...] baclofen 10 mg oral tablet 10/18/2014 02/15/2015 12 TABLET BY ORAL ROUTE 3 TIMES PER DAY PRN MUSCLE SPASM ondansetron 4 mg oral tablet,disintegrating 12/04/2014 01/03/2015 dissolve 1 tablet by oral route 2 times a day as needed for 30 days jlqioslj-ierplyzsd-ZJ 3.5-10,000-1 mg/mL-unit/mL-% otic drops,suspension 201401/08/2015 instill 4 [...] Test 2x daily, Dx: E11.9 TEST STRIPS Estrace 0.01 % (0.1 mg/gram) vaginal cream [...] Ok for similiar substitution or individual components. cxgjkazb-krksiqlxz-CS 3.5-10,000-1 mg/mL-unit/mL-% otic drops,suspension 201607/23/2016 instill 4 [...] by oral route once daily Chantix Starting [facility] Box 0.5 mg (11)- 1 mg (42) [...] HC BMI BSA BMI Percentile O2 Sat(%) 07/09/2016 3:23:00 PM 122 mmHg 76 mmHg [...] Reviewed 04/28/2011 12:00 AM Decadron 1 mg NDC#[id number] (Jr) Reviewed 04/28/2011 12:00 AM Depo-Medrol 80 mg NDC#[id number]-Lczgikxc Reviewed 09/02/2015 12:00 AM Toradol 60 Mg NDC#5587-8503-23 Reviewed 09/02/2015 12:00 AM Phenergan, Up to 50 Mg RHC Medicaid Reviewed 09/16/2015 12:00 AM Toradol 60 Mg NDC#7202-9507-62 Reviewed 09/16/2015 12:00 AM Phenergan Up to 50 mg RHC Medicare Reviewed 05/11/2011 12:00 AM N BLOCK INJ OCCIPITAL Reviewed 05/11/2011 12:00 AM Kenalog Ny-[address]-20 ANNA Reviewed 11/13/2015 12:00 AM ASSAY OF [...] SC/IM Reviewed 07/08/2011 12:00 AM Toradol,15mg [facility]#[id number], [place] Reviewed 07/08/2011 12:00 AM Phenergan 50 Mg Im [facility] [id number] [place] Reviewed 01/21/2016 12:00 AM ECG MONIT/REPRT UP TO 48 HRS Returned 08/02/2011 12:00 AM THER/PROPH/DIAG INJ SC/IM Reviewed 08/02/2011 12:00 AM Decadron [address] [facility]#[id number] (Jr) Reviewed 08/02/2011 12:00 AM Depo-Medrol [address] [facility]#[id number]-Ebgwtwck Reviewed 03/05/2016 12:00 AM COMPLETE CBC W/AUTO DIFF WBC Returned 03/05/2016 12:00 AM STREP A ASSAY W/OPTIC Returned 03/05/2016 12:00 AM C-REACTIVE PROTEIN Returned 03/18/2016 12:00 AM [facility] - flu vaccine administration Reviewed [...] 09/27/2011 12:00 AM Depo-Medrol [address] [facility]#[id number]-Hnqngams Reviewed 07/06/2016 12:00 AM CHEST X-RAY 4/> VIEWS Returned 10/14/2011 12:00 AM X-RAY EXAM OF ABDOMEN Reviewed 10/14/2011 12:00 AM URINALYSIS AUTO W/O SCOPE Reviewed 12/23/2011 12:00 AM THER/PROPH/DIAG INJ SC/IM Reviewed 12/23/2011 12:00 AM Decadron 1 mg N[facility]#[id number] (Jr) Reviewed 12/23/2011 12:00 AM Depo-Medrol 80 mg NDC#[id number]-Srknmlnr Reviewed 02/09/2012 12:00 AM THER/PROPH/DIAG INJ SC/IM Reviewed 02/09/2012 12:00 AM Decadron 1 mg N[facility]#[id number] (Jr) Reviewed 02/09/2012 12:00 AM Depo-Medrol 80 mg NDC#[id number]-Xlqyqzze Reviewed 03/15/2012 12:00 AM N BLOCK INJ OCCIPITAL Reviewed 03/15/2012 12:00 AM Kenalog Iz-[address]-20 ANNA Reviewed 04/11/2012 12:00 AM COMPLETE CBC W/AUTO DIFF WBC Reviewed 04/11/2012 12:00 AM COMPREHEN METABOLIC PANEL Reviewed 04/11/2012 12:00 AM LIPID PANEL Reviewed 04/11/2012 12:00 AM ASSAY THYROID STIM HORMONE Reviewed 06/20/2012 12:00 AM THER/PROPH/DIAG INJ SC/IM Reviewed 06/20/2012 12:00 AM Decadron, Per 1 Mg ND# [address]-59 Reviewed 06/20/2012 12:00 AM Depo-Medrol, Per 80 Mg ND#4330-3301-15 Reviewed 09/06/2012 12:00 AM N BLOCK INJ OCCIPITAL Reviewed 09/06/2012 12:00 AM Kenalog Ol-[address]-20 ANNA Reviewed 09/06/2012 12:00 AM X-RAY EXAM RIBS UNI 2 VIEWS Reviewed 09/26/2012 12:00 AM THER/PROPH/DIAG INJ SC/IM Reviewed 09/26/2012 12:00 AM Decadron, Per 1 Mg ND# [address]-46 Reviewed 09/26/2012 12:00 AM Depo-Medrol, Per 80 Mg ND#5692-0062-81 Reviewed 10/03/2012 12:00 AM URINALYSIS AUTO W/O SCOPE Reviewed 10/03/2012 12:00 AM THER/PROPH/DIAG INJ SC/IM Reviewed 10/03/2012 12:00 AM Toradol 60 Mg ND#6715-5399-27 Reviewed 10/03/2012 12:00 AM Phenergan, 25Mg [facility]#8043-5422-01 Reviewed 10/19/2012 12:00 AM N BLOCK INJ OCCIPITAL Reviewed 10/19/2012 12:00 AM Kenalog, Per 10 Mg ND#9953-5717-04 Reviewed 10/19/2012 12:00 AM Toradol [address] [facility]#7482-7994-53 Reviewed 10/19/2012 12:00 AM THER/PROPH/DIAG INJ SC/IM Reviewed 10/31/2012 12:00 AM COMPLETE CBC W/AUTO DIFF WBC Reviewed 10/31/2012 12:00 AM COMPREHEN METABOLIC PANEL Reviewed 10/31/2012 12:00 AM LIPID PANEL Reviewed 11/03/2012 12:[address] THORAX W/O & W/DYE Reviewed 11/08/2012 12:00 AM N BLOCK INJ OCCIPITAL Reviewed 11/08/2012 12:00 AM Kenalog Cq-[address]-20 ANNA Reviewed 11/27/2012 12:00 AM COMPLETE CBC [...] 12:00 AM Decadron, Per [address] [facility]# [address]-88 Reviewed 01/25/2013 12:00 AM Depo-Medrol, Per [address] [facility]#7352-6676-32 Reviewed 01/26/2013 12:00 AM IMMUNOTHERAPY INJECTIONS Reviewed [...] 12:00 AM Decadron, Per [address] [facility]# [address]-31 Reviewed 05/16/2013 12:00 AM Depo-Medrol, Per [address] [facility]#3958-9419-48 Reviewed 05/31/2013 12:00 AM IMMUNOTHERAPY INJECTIONS Reviewed 06/08/2013 12:00 AM IMMUNOTHERAPY INJECTIONS Reviewed 06/14/2013 12:00 AM IMMUNOTHERAPY INJECTIONS Reviewed 06/28/2013 12:00 AM IMMUNOTHERAPY INJECTIONS Reviewed 07/12/2013 12:00 AM X-RAY EXAM RIBS UNI 2 VIEWS Reviewed 07/18/2013 12:00 AM Toradol [address] [facility]#1898-2311-55 Reviewed 07/18/2013 12:00 AM THER/PROPH/DIAG INJ SC/IM Reviewed 08/23/2013 12:00 AM COMPLETE CBC W/AUTO DIFF WBC Reviewed 08/23/2013 12:00 AM COMPREHEN METABOLIC PANEL Reviewed 08/23/2013 12:00 AM LIPID PANEL Reviewed 08/31/2013 12:00 AM X-RAY EXAM OF LOWER LEG Reviewed 09/04/2013 12:00 AM IMMUNOTHERAPY INJECTIONS Reviewed 09/14/2013 12:00 AM THER/PROPH/DIAG INJ SC/IM Reviewed 09/14/2013 12:00 AM Decadron, Per [address] [facility]# [address]-12 Reviewed 09/14/2013 12:00 AM Depo-Medrol, Per [address] [facility]#5687-3089-62 Reviewed 09/20/2013 12:00 AM IMMUNOTHERAPY INJECTIONS Reviewed [...] INJ OCCIPITAL Reviewed 12/10/2009 12:00 AM Kenalog Vk-[address]-20 ANNA Reviewed 12/16/2009 12:00 AM HIV-1ANTIBODY Reviewed 12/16/2009 12:00 AM COMPLETE CBC W/AUTO DIFF WBC Reviewed 12/16/2009 12:00 AM METABOLIC PANEL TOTAL CA Reviewed 12/16/2009 12:00 AM Type and screen Reviewed 12/16/2009 12:00 AM PROTHROMBIN TIME Reviewed 12/16/2009 12:00 AM THROMBOPLASTIN TIME PARTIAL Reviewed 03/18/2010 12:00 AM DRAIN/INJ JOINT/BURSA W/O US Reviewed 03/18/2010 12:00 AM Kenalog Ye-[address]-20 ANNA Reviewed 11/21/2013 12:00 AM RADEX HAND MINIMUM 3 VIEWS Reviewed 06/03/2010 12:00 AM INJ TRIGGER POINT 1/2 MUSCL Reviewed 06/03/2010 12:00 AM Kenalog per 10Mg -[facility]#[address]-96(Niall) Reviewed 12/05/2013 12:00 AM COMPLETE CBC W/AUTO [...] Reviewed 07/23/2010 12:00 AM Kenalog per 10Mg Im-Nvc#[address]-12(Niall) Reviewed 2014 12:00 AM COMPLETE CBC W/AUTO [...] INJ OCCIPITAL Reviewed 10/01/2010 12:00 AM Kenalog Kq-[address]-20 ANNA Reviewed 07/25/2014 12:00 AM THER/PROPH/DIAG INJ [...] 4.59 HGB 13.90 g/dLHCT 41.60 %MCV 91.0 [facility] 30.30 [facility] 33.40 g/dLRDW SD 44 RDW CV 13.60 [...] Quant,IgM <0.80 RMSF , IgG, EIA Negative [facility] Spotted Fever,IgM 0.51 E. chaffeensis [...] Detected History Of Immunizations Name Date Admin [facility] Name Mf Code Trade Name Lot# Route Inj Vis Given Vis Pub CVX Influenza 03/30/2011 Not Entered NE Not Entered Not Entered Not Entered 03/31/2011 05/30/2016 141 Influenza 04/24/2014 sanofi pasteur PMC Fluzone [id number] Intramuscular Left Upper Arm 02/27/2014 01/15/2014 141 Influenza 02/13/2015 sanofi pasteur PMC Fluzone [id number] Intramuscular Left Deltoid 02/13/2015 01/03/2015 140 Tdap 06/06/2015 Glaxmg[employer]IAine SKB BOOSTRIX [id number] Intramuscular Left Deltoid 06/06/2015 07/23/2014 115 Influenza 03/18/2016 [facility] Fluzone [id number] Intramuscular Left Deltoid 03/17/2016 01/03/2015 141 History [...] stenosis of spine Aug 09 2016 9:03AM Payers Insurance Name Company Name Plan Name Plan Number Policy Number Policy Group Number Start Date Medicare RHC Medicare RHC [id number] N/A [facility] - RHC - Community [facility] RHC Comm [id number] N/A Medicare Part A Medicare - Lab/Xray [id number] N/A Medicare Part B Medicare Of [place] [id number] Monday, February 28, 2000 [place] [employer] [place] [employer] [place]g [id number] Tuesday, November 10, 2009 Medicare Part A Medicare Part A [id number] N/A [place] [employer] - RHC [place] 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 Prog - RHC [id number] May [facility] Comm Plan of [id number] Wednesday, May 30, 2012 History of Encounters Visit Date Visit Type Provider 07/09/2016 Office visit Riccardo Cardoza MD 07/06/2016 Office visit Heena Dumont MD 06/18/2016 Office visit Kaylynn Mendez PHOTOGRAMMETRIC SURVEYOR 06/07/2016 Office visit Sundeep Russell PHOTOGRAMMETRIC SURVEYOR 06/04/2016 Office visit Heena Dumont MD 05/13/2016 Office visit Heena Dumont MD 05/03/2016 Office visit Heena Dumont MD 04/26/2016 Office visit Kaylynn Mendez PHOTOGRAMMETRIC SURVEYOR 04/14/2016 Office visit Heena Dumont MD 04/13/2016 Office visit Kaylynn Mendez PHOTOGRAMMETRIC SURVEYOR 04/02/2016 Office visit Lena El PHOTOGRAMMETRIC SURVEYOR 04/02/2016 Office visit Heena Dumont MD 03/26/2016 Office visit Yesica Falcon PHOTOGRAMMETRIC SURVEYOR 03/17/2016 Office visit Heena Dumont MD 03/05/2016 Office visit Kaylynn Mendez PHOTOGRAMMETRIC SURVEYOR 02/16/2016 Office visit Heena Dumont MD 02/14/2016 Office visit Na Jones PHOTOGRAMMETRIC SURVEYOR 01/16/2016 Office visit Heena Dumont MD 12/16/2015 Office visit Heena Dumont MD 11/24/2015 Office visit Kaylynn Mendez PHOTOGRAMMETRIC SURVEYOR 11/18/2015 Office visit Heena Dumont MD 11/03/2015 Office visit Sundeep Russell PHOTOGRAMMETRIC SURVEYOR 10/20/2015 Office visit Kaylynn Walker PHOTOGRAMMETRIC SURVEYOR 09/23/2015 Office visit Kaylynn Walker PHOTOGRAMMETRIC SURVEYOR 09/16/[address] Pepe Figueroa MD 09/02/2015 Office visit Kaylynn Walker PHOTOGRAMMETRIC SURVEYOR 09/01/2015 Office visit Kaylynn Walker PHOTOGRAMMETRIC SURVEYOR 07/30/2015 Office visit Heena Dumont MD 07/15/2015 Office visit Kaylynn Walker PHOTOGRAMMETRIC SURVEYOR 07/04/2015 Office visit Heena Dumont MD 06/06/2015 Office visit Heena Dumont MD 06/06/2015 Office visit Kaylynn Walker PHOTOGRAMMETRIC SURVEYOR 06/02/2015 Office visit Kaylynn Walker PHOTOGRAMMETRIC SURVEYOR 05/26/2015 Office visit Kaylynn Walker PHOTOGRAMMETRIC SURVEYOR 05/20/2015 Office visit Kaylynn Walker PHOTOGRAMMETRIC SURVEYOR 05/08/2015 Office visit Heena Dumont MD 05/06/2015 Office visit Kaylynn Walker PHOTOGRAMMETRIC SURVEYOR 04/29/2015 Office visit Kaylynn Walker PHOTOGRAMMETRIC SURVEYOR 03/27/2015 Voided Brittni Yanez PHOTOGRAMMETRIC SURVEYOR 03/21/2015 Office visit Heena Dumont MD 03/12/2015 Office visit Kaylynn Mendez PHOTOGRAMMETRIC SURVEYOR 02/26/2015 Office visit Brittni Yanez PHOTOGRAMMETRIC SURVEYOR 02/13/2015 Office visit Heena Dumont MD 01/15/2015 Office visit Brittni Yanez PHOTOGRAMMETRIC SURVEYOR 01/13/2015 Office visit Heena Dumont MD 01/08/[address] Carol Fowler MD 01/01/2015 Office visit Brittni Yanez PHOTOGRAMMETRIC SURVEYOR 12/13/2014 Office visit Heena Dumont MD 11/27/2014 Office visit Kaylynn Mendez PHOTOGRAMMETRIC SURVEYOR 11/14/2014 Office visit Heena Dumont MD 10/18/2014 Office visit Heena Dumont MD 10/17/2014 [facility] John Hoskins MD 10/09/2014 Office visit Heena Dumont MD 09/25/2014 Office visit Heena Dumont MD 09/17/2014 Office visit Kaylynn Mendez PHOTOGRAMMETRIC SURVEYOR 09/04/2014 Office visit Heena Dumont MD 08/28/2014 Office visit Kaylynn Mendez PHOTOGRAMMETRIC SURVEYOR 08/23/2014 [facility] John Hoskins MD 08/01/2014 Office visit Kaylynn Mendez PHOTOGRAMMETRIC SURVEYOR 07/29/2014 Office visit Heena Dumont MD 07/25/2014 Nurse visit Heena Dumont MD 07/17/2014 Office visit Kaylynn Mendez PHOTOGRAMMETRIC SURVEYOR 07/11/2014 Office visit Heena Dumont MD 07/01/2014 Office visit Heena Dumont MD 06/25/2014 Office visit Kaylynn Mendez PHOTOGRAMMETRIC SURVEYOR 06/12/2014 Office visit Kaylynn Mendez PHOTOGRAMMETRIC SURVEYOR 06/06/2014 Office visit Kaylynn Mendez PHOTOGRAMMETRIC SURVEYOR 05/27/2014 Office visit Heena Dumont MD 04/20/2014 Office visit Yesica Falcon PHOTOGRAMMETRIC SURVEYOR 03/29/2014 Office visit Na Jones PHOTOGRAMMETRIC SURVEYOR 03/15/2014 Office visit Heena Dumont MD 2014 Office visit Heena Dumont MD 2014 [facility] John Hoskins MD 02/27/2014 Nurse visit Heena Dumont MD 02/13/2014 Office visit Lena El PHOTOGRAMMETRIC SURVEYOR 02/07/2014 Office visit Heena Dumont MD 02/03/2014 Office visit Na Jones PHOTOGRAMMETRIC SURVEYOR 01/30/2014 Office visit Kaylynn Mendez PHOTOGRAMMETRIC SURVEYOR 01/24/2014 Office visit Sundeep Russell PHOTOGRAMMETRIC SURVEYOR 01/16/2014 Office visit Kaylynn Mendez PHOTOGRAMMETRIC SURVEYOR 01/10/2014 Nurse visit Kaylynn Mendez PHOTOGRAMMETRIC SURVEYOR 01/08/2014 Office visit Kaylynn Walker PHOTOGRAMMETRIC SURVEYOR 12/05/2013 Office visit Kaylynn Walker PHOTOGRAMMETRIC SURVEYOR 11/21/2013 Office visit Kaylynn Mendez PHOTOGRAMMETRIC SURVEYOR 10/23/2013 Office visit Brittni Yanez PHOTOGRAMMETRIC SURVEYOR 10/17/2013 Nurse visit Heena Dumont MD 10/12/2013 Office visit Kaylynn Mendez PHOTOGRAMMETRIC SURVEYOR 10/02/2013 Office visit Heena Dumont MD 09/20/2013 Nurse visit Kaylynn Mendez PHOTOGRAMMETRIC SURVEYOR 09/20/2013 Voided Heena Dumont MD 09/14/2013 Office visit Kaylynn Walker PHOTOGRAMMETRIC SURVEYOR 09/05/2013 Office visit Sundeep Russell PHOTOGRAMMETRIC SURVEYOR 09/04/2013 Nurse visit Kaylynn Walker PHOTOGRAMMETRIC SURVEYOR 08/31/2013 Office visit Kaylynn Walker PHOTOGRAMMETRIC SURVEYOR 08/23/2013 Office visit Heena Dumont MD 08/10/2013 Office visit Kaylynn Walker PHOTOGRAMMETRIC SURVEYOR 07/25/2013 Office visit Kaylynn Walker PHOTOGRAMMETRIC SURVEYOR 07/18/2013 Office visit Kaylynn Walker PHOTOGRAMMETRIC SURVEYOR 07/12/2013 Office visit Kaylynn Walker PHOTOGRAMMETRIC SURVEYOR 06/28/2013 Nurse visit Kaylynn Walker PHOTOGRAMMETRIC SURVEYOR 06/14/2013 Nurse visit Kaylynn Walker PHOTOGRAMMETRIC SURVEYOR 06/08/2013 Nurse visit Kaylynn Walker PHOTOGRAMMETRIC SURVEYOR 05/31/2013 Nurse visit Chadd Norris DO 05/18/2013 Office visit Terese Davidson MD 05/16/2013 Office visit Kaylynn Walker PHOTOGRAMMETRIC SURVEYOR 05/09/2013 Office visit Kaylynn Walker PHOTOGRAMMETRIC SURVEYOR 04/29/2013 [facility] John Hoskins MD 04/25/2013 Nurse visit Kaylynn Walker PHOTOGRAMMETRIC SURVEYOR 04/17/2013 Office visit Kaylynn Walker PHOTOGRAMMETRIC SURVEYOR 04/03/2013 Nurse visit Kaylynn Walker PHOTOGRAMMETRIC SURVEYOR 04/03/2013 Office visit Terese Davidson MD 03/28/2013 Office visit Sundeep Russell PHOTOGRAMMETRIC SURVEYOR 03/21/2013 Office visit Kaylynn Mendez PHOTOGRAMMETRIC SURVEYOR 03/20/2013 Office visit Terese Davidson MD 03/14/2013 Nurse visit Kaylynn Walker PHOTOGRAMMETRIC SURVEYOR 03/05/2013 Nurse visit Kaylynn Walker PHOTOGRAMMETRIC SURVEYOR 02/19/2013 Office visit Terese Davidson MD 02/16/2013 Nurse visit Kaylynn Mendez PHOTOGRAMMETRIC SURVEYOR 02/09/2013 Office visit Sundeep Russell PHOTOGRAMMETRIC SURVEYOR 02/08/2013 Nurse visit Kaylynn Walker PHOTOGRAMMETRIC SURVEYOR 02/01/2013 Nurse visit Kaylynn Walker PHOTOGRAMMETRIC SURVEYOR 01/26/2013 Nurse visit Sabrina Andrea WET MIX OPERATOR 01/25/2013 Office visit Kaylynn Andrea PHOTOGRAMMETRIC SURVEYOR 01/22/2013 Office visit Yoan Castaneda MD 01/18/2013 Nurse visit Kaylynn Mendez PHOTOGRAMMETRIC SURVEYOR 01/11/2013 Nurse visit Kaylynn Walker PHOTOGRAMMETRIC SURVEYOR 01/05/2013 Nurse visit Kaylynn Walker PHOTOGRAMMETRIC SURVEYOR 12/29/2012 Office visit Kaylynn Walker PHOTOGRAMMETRIC SURVEYOR 11/27/2012 Office visit Kaylynn Mendez PHOTOGRAMMETRIC SURVEYOR 11/08/2012 Office visit Odell Tierney MD 11/08/2012 Voided Odell Tierney MD 11/07/2012 Office visit Kaylynn Mendez PHOTOGRAMMETRIC SURVEYOR 10/31/2012 [facility] John Hoskins MD 10/31/2012 Office visit Kaylynn Mendez PHOTOGRAMMETRIC SURVEYOR 10/19/2012 Office visit Genoveva Ayala PHOTOGRAMMETRIC SURVEYOR 10/10/2012 Office visit Kaylynn Mendez PHOTOGRAMMETRIC SURVEYOR 10/03/2012 Office visit Kaylynn Walker PHOTOGRAMMETRIC SURVEYOR 09/26/2012 Office visit Kaylynn Walker PHOTOGRAMMETRIC SURVEYOR 09/06/2012 Office visit Kaylynn Mendez PHOTOGRAMMETRIC SURVEYOR 09/06/2012 Office visit Odell Tierney MD 08/31/2012 Voided Kaylynn Mendez PHOTOGRAMMETRIC SURVEYOR 07/28/2012 Office visit Kaylynn Mendez PHOTOGRAMMETRIC SURVEYOR 07/27/2012 Office visit David Joyner DO 07/20/2012 [facility] David Joyner DO 07/13/2012 [facility] David Joyner DO 07/11/2012 Office visit Kaylynn Mendez PHOTOGRAMMETRIC SURVEYOR 06/27/2012 [facility] Odell Tierney MD 06/21/2012 Office visit David Joyner DO 06/21/2012 Office visit Odell Tierney MD 06/20/2012 Office visit Brittni Yanez PHOTOGRAMMETRIC SURVEYOR 06/06/2012 Office visit Odell Tierney MD 05/03/2012 Office visit Kaylynn Mendez PHOTOGRAMMETRIC SURVEYOR 04/28/2012 Office visit Brittni Yanez PHOTOGRAMMETRIC SURVEYOR 04/11/2012 Office visit Kaylynn Andrea PHOTOGRAMMETRIC SURVEYOR 04/06/2012 [facility] John Hoskins MD 03/30/2012 Office visit Kaylynn Mendez PHOTOGRAMMETRIC SURVEYOR 03/15/2012 Office visit Kaylynn Andrea PHOTOGRAMMETRIC SURVEYOR 03/15/2012 Office visit Odell Tierney MD 02/09/2012 Office visit Kaylynn Mendez PHOTOGRAMMETRIC SURVEYOR 12/23/2011 Office visit Kaylynn Walker PHOTOGRAMMETRIC SURVEYOR 11/02/2011 Office visit Kaylynn Walker PHOTOGRAMMETRIC SURVEYOR 10/14/2011 Office visit Kaylynn Walker PHOTOGRAMMETRIC SURVEYOR 09/27/2011 Office visit Kaylynn Mendez PHOTOGRAMMETRIC SURVEYOR 08/19/2011 Hospital John Hoskins MD 08/18/2011 [facility] John Hoskins MD 08/18/2011 Office visit Kaylynn Mendez PHOTOGRAMMETRIC SURVEYOR 08/02/2011 Office visit Kaylynn Mendez PHOTOGRAMMETRIC SURVEYOR 07/08/2011 Office visit Kaylynn Andrea PHOTOGRAMMETRIC SURVEYOR 07/05/2011 Office visit Odell Tierney MD 06/15/2011 Office visit Kaylynn Mendez PHOTOGRAMMETRIC SURVEYOR 05/14/2011 Office visit Kaylynn Mendez PHOTOGRAMMETRIC SURVEYOR 05/11/2011 Office visit Odell Tierney MD 04/28/2011 Office visit Kaylynn Mendez PHOTOGRAMMETRIC SURVEYOR 03/02/2011 Office visit Chadd Norris DO 02/17/2011 [...]
--- OUTSIDE RECORDS SUMMARY | 2018-05-09 15:57 | XMS REPORT ---
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 metformin oral Name Start Date Expiration Date SIG Comments [...] 08/27/2014 use as directed for 99 days [place] 5-325 mg oral tablet 06/17/2014 06/27/2014 take [...] a day as needed for 30 days [id number]-[id number]-WK 3.5-10,000-1 mg/mL-unit/mL-% otic drops,suspension 201401/08/2015 instill 4 [...] 3 times per week for 7 days Discontinued Name Start Date [...] route [address] Jin Bactmarta DS Oral 160-800 mg Oral Tablet 11/06/2009 [...] HC BMI BSA BMI Percentile O2 Sat(%) 04/14/2016 1:35:00 PM 128 mmHg 68 mmHg [...] Reviewed 04/28/2011 12:00 AM Decadron 1 mg ND#[id number] (Jr) Reviewed 04/28/2011 12:00 AM Depo-Medrol 80 mg ND#[id number]-Uhbgvpob Reviewed 09/02/2015 12:00 AM Toradol 60 Mg [facility]#[id number] Reviewed 09/02/2015 12:00 AM Phenergan, Up to 50 Mg RHC Medicaid Reviewed 09/16/2015 12:00 AM Toradol 60 Mg [facility]#2142-8052-44 Reviewed 09/16/2015 12:00 AM Phenergan Up to 50 mg RHC Medicare Reviewed 05/11/2011 12:00 AM N BLOCK INJ OCCIPITAL Reviewed 05/11/2011 12:00 AM Kenalog Ej-[address]-20 ANNA Reviewed 11/13/2015 12:00 AM ASSAY OF [...] INJ SC/IM Reviewed 07/08/2011 12:00 AM Toradol,15mg [facility]#[id number], [place] Reviewed 07/08/2011 12:00 AM Phenergan 50 Mg Im [facility] 2187-2465-24 ALLIE [place] Reviewed 01/21/2016 12:00 AM ECG MONIT/REPRT UP TO 48 HRS Returned 08/02/2011 12:00 AM THER/PROPH/DIAG INJ SC/IM Reviewed 08/02/2011 12:00 AM Decadron 1 mg [facility]#[id number] (Jr) Reviewed 08/02/2011 12:00 AM Depo-Medrol 80 mg [facility]#[id number]-Aypvddnc Reviewed 03/05/2016 12:00 AM COMPLETE CBC W/AUTO DIFF WBC Returned 03/05/2016 12:00 AM STREP A ASSAY W/OPTIC Returned 03/05/2016 12:00 AM C-REACTIVE PROTEIN Returned 03/18/2016 12:00 AM [facility] MEDICARE - flu vaccine administration Reviewed 03/18/2016 12:00 AM INFLUENZA VACCINE QUADRIVALENT 3 YRS PLUS IM Reviewed 09/27/2011 12:00 AM THER/PROPH/DIAG INJ SC/IM Reviewed 09/27/2011 12:00 AM Depo-Medrol 80 mg NDC#[id number]-Njvrbbrg Reviewed 10/14/2011 12:00 AM X-RAY EXAM OF ABDOMEN Returned 10/14/2011 12:00 AM URINALYSIS AUTO W/O SCOPE Reviewed 12/23/2011 12:00 AM THER/PROPH/DIAG INJ SC/IM Reviewed 12/23/2011 12:00 AM Decadron 1 mg NDC#[id number] (Jr) Reviewed 12/23/2011 12:00 AM Depo-Medrol 80 mg NDC#[id number]-Wroycbvn Reviewed 02/09/2012 12:00 AM THER/PROPH/DIAG INJ SC/IM Reviewed 02/09/2012 12:00 AM Decadron 1 mg NDC#[id number] (Jr) Reviewed 02/09/2012 12:00 AM Depo-Medrol 80 mg NDC#[id number]-Xyyqpdjj Reviewed 03/15/2012 12:00 AM N BLOCK INJ OCCIPITAL Reviewed 03/15/2012 12:[address]-[address]-20 ANNA Reviewed 04/11/2012 12:00 AM COMPLETE CBC W/AUTO DIFF WBC Returned 04/11/2012 12:00 AM COMPREHEN METABOLIC PANEL Returned 04/11/2012 12:00 AM LIPID PANEL Returned 04/11/2012 12:00 AM ASSAY THYROID STIM HORMONE Returned 06/20/2012 12:00 AM THER/PROPH/DIAG INJ SC/IM Reviewed 06/20/2012 12:00 AM Decadron, Per 1 Mg ND# [address]-37 Reviewed 06/20/2012 12:00 AM Depo-Medrol, Per 80 Mg NDC#0613-9130-82 Reviewed 09/06/2012 12:00 AM N BLOCK INJ OCCIPITAL Reviewed 09/06/2012 12:00 AM Kenalog Yj-[address]-20 ANNA Reviewed 09/06/2012 12:00 AM X-RAY EXAM RIBS UNI 2 VIEWS Returned 09/26/2012 12:00 AM THER/PROPH/DIAG INJ SC/IM Reviewed 09/26/2012 12:00 AM Decadron, Per 1 Mg [facility]# [address]-21 Reviewed 09/26/2012 12:00 AM Depo-Medrol, Per 80 Mg [facility]#7042-4741-66 Reviewed 10/03/2012 12:00 AM URINALYSIS AUTO W/O SCOPE Reviewed 10/03/2012 12:00 AM THER/PROPH/DIAG INJ SC/IM Reviewed 10/03/2012 12:00 AM Toradol 60 Mg [facility]#0841-4121-20 Reviewed 10/03/2012 12:00 AM Phenergan, 25Mg [facility]#3670-3803-94 Reviewed 10/19/2012 12:00 AM N BLOCK INJ OCCIPITAL Reviewed 10/19/2012 12:00 AM Kenalog, Per 10 Mg [facility]#1785-7058-41 Reviewed 10/19/2012 12:00 AM Toradol 30 Mg [facility]#4225-9650-86 Reviewed 10/19/2012 12:00 AM THER/PROPH/DIAG INJ SC/IM Reviewed 10/31/2012 12:00 AM COMPLETE CBC W/AUTO DIFF WBC Returned 10/31/2012 12:00 AM COMPREHEN METABOLIC PANEL Returned 10/31/2012 12:00 AM LIPID PANEL Returned 11/03/2012 12:[address] THORAX W/O & W/DYE Returned 11/08/2012 12:00 AM N BLOCK INJ OCCIPITAL Reviewed 11/08/2012 12:00 AM Kenalog Un-[address]-20 ANNA Reviewed 11/27/2012 12:00 AM COMPLETE CBC [...] 01/25/2013 12:00 AM Decadron, Per 1 Mg [facility]# [address]-90 Reviewed 01/25/2013 12:00 AM Depo-Medrol, Per 80 Mg [facility]#9677-7134-84 Reviewed 01/26/2013 12:00 AM IMMUNOTHERAPY INJECTIONS Returned [...] 05/16/2013 12:00 AM Decadron, Per 1 Mg [facility]# [address]-49 Reviewed 05/16/2013 12:00 AM Depo-Medrol, Per 80 Mg [facility]#5529-6776-22 Reviewed 05/31/2013 12:00 AM IMMUNOTHERAPY INJECTIONS Reviewed 06/08/2013 12:00 AM IMMUNOTHERAPY INJECTIONS Reviewed 06/14/2013 12:00 AM IMMUNOTHERAPY INJECTIONS Reviewed 06/28/2013 12:00 AM IMMUNOTHERAPY INJECTIONS Reviewed 07/12/2013 12:00 AM X-RAY EXAM RIBS UNI 2 VIEWS Returned 07/18/2013 12:00 AM Toradol 60 Mg [facility]#4783-5767-81 Reviewed 07/18/2013 12:00 AM THER/PROPH/DIAG INJ SC/IM Reviewed 08/23/2013 12:00 AM COMPLETE CBC W/AUTO DIFF WBC Reviewed 08/23/2013 12:00 AM COMPREHEN METABOLIC PANEL Reviewed 08/23/2013 12:00 AM LIPID PANEL Reviewed 08/31/2013 12:00 AM X-RAY EXAM OF LOWER LEG Returned 09/04/2013 12:00 AM IMMUNOTHERAPY INJECTIONS Reviewed 09/14/2013 12:00 AM THER/PROPH/DIAG INJ SC/IM Reviewed 09/14/2013 12:00 AM Decadron, Per 1 Mg [facility]# [address]-82 Reviewed 09/14/2013 12:00 AM Depo-Medrol, Per 80 Mg [facility]#3894-1934-36 Reviewed 09/20/2013 12:00 AM IMMUNOTHERAPY INJECTIONS Reviewed [...] INJ OCCIPITAL Reviewed 12/10/2009 12:00 AM Kenalog Pb-[address]-20 ANNA Reviewed 12/16/2009 12:00 AM HIV-1ANTIBODY Reviewed 12/16/2009 12:00 AM COMPLETE CBC W/AUTO DIFF WBC Reviewed 12/16/2009 12:00 AM METABOLIC PANEL TOTAL CA Reviewed 12/16/2009 12:00 AM Type and screen Reviewed 12/16/2009 12:00 AM PROTHROMBIN TIME Reviewed 12/16/2009 12:00 AM THROMBOPLASTIN TIME PARTIAL Reviewed 03/18/2010 12:00 AM DRAIN/INJ JOINT/BURSA W/O US Reviewed 03/18/2010 12:00 AM Kenalog Ep-[address]-20 ANNA Reviewed 11/21/2013 12:00 AM RADEX HAND MINIMUM 3 VIEWS Returned 06/03/2010 12:00 AM INJ TRIGGER POINT 1/2 MUSCL Reviewed 06/03/2010 12:00 AM Kenalog per 10Mg Im-[facility]#[address]-82(Niall) Reviewed 12/05/2013 12:00 AM COMPLETE CBC W/AUTO [...] Returned 07/23/2010 12:00 AM INJ TRIGGER POINT /2 MUSCL Reviewed 07/23/2010 12:00 AM Kenalog per 10Mg Im-Ndc#[address]-78(Niall) Reviewed 2014 12:00 AM COMPLETE CBC W/AUTO [...] INJ OCCIPITAL Reviewed 10/01/2010 12:00 AM Kenalog Ek-[address]-20 ANNA Reviewed 07/25/2014 12:00 AM THER/PROPH/DIAG INJ [...] Quant,IgM <0.80 RMSF , IgG, EIA Negative [facility] Spotted Fever,IgM 0.51 E. chaffeensis [...] LYMPHS 24 MONOS 2 EOS 5.0 % History Of Immunizations Name Date Admin Mfg Name Mfg Code Trade Name Lot# Route Inj Vis Given Vis Pub CVX Influenza 03/30/2011 Not Entered NE Not Entered Not Entered Not Entered 03/31/2011 05/30/2016 141 Influenza 04/24/2014 sanofi pasteur PMC Fluzone [id number] Intramuscular Left Upper Arm 02/27/2014 01/15/2014 141 Influenza 02/13/2015 sanofi pasteur PMC Fluzone [id number] Intramuscular Left Deltoid 02/13/2015 01/03/2015 140 Tdap 06/06/2015 GlaxoSmithKline SKB BOOSTRIX [id number] Intramuscular Left Deltoid 06/06/2015 07/23/2014 115 Influenza 03/18/2016 sanofi pasteur PMC Fluzone [id number] Intramuscular Left Deltoid 03/17/2016 01/03/2015 141 History [...] pain, left Feb 2014 3:51PM Tendon dysfunction Jul 01 2014 [...] other allergic trigger Apr 13 2016 9:43AM Payers Insurance Name Company Name Plan Name Plan Number Policy Number Policy Group Number Start Date Medicare Part A Medicare RHC [id number] N/A [facility] Comm [id number] N/A Medicare Part A Medicare - Lab/Xray [id number] N/A Medicare Part B Medicare Of [place] [id number] Monday, February 28, 2000 [place] [employer] [facility] [place] [employer] [facility] [id number] Tuesday, November 10, 2009 Medicare Part A Medicare Part A [id number] N/A [place] [employer] [facility] [id number] [facility] Comm Plan of [id number] Wednesday, May 30, 2012 History of Encounters Visit Date Visit Type Provider 04/14/2016 Office visit Heena Dumont MD 04/13/2016 Office visit Kaylynn Mendez VEGETABLE FARMER 04/02/2016 Office visit Lena El VEGETABLE FARMER 04/02/2016 Office visit Heena Dumont MD 03/26/2016 Office visit Yesica Falcon VEGETABLE FARMER 03/17/2016 Office visit Heena Dumont MD 03/05/2016 Office visit Kaylynn Mendez VEGETABLE FARMER 02/16/2016 Office visit Heena Dumont MD 02/14/2016 Office visit Na Jones VEGETABLE FARMER 01/16/2016 Office visit Heena Dumont MD 12/16/2015 Office visit Heena Dumont MD 11/24/2015 Office visit Kaylynn Mendez VEGETABLE FARMER 11/18/2015 Office visit Heena Dumont MD 11/03/2015 Office visit Sundeep Russell VEGETABLE FARMER 10/20/2015 Office visit Kaylynn Mendez VEGETABLE FARMER 09/23/2015 Office visit Kaylynn Mendez VEGETABLE FARMER 09/16/[address] Pepe Figueroa MD 09/02/2015 Office visit Kaylynn Mendez VEGETABLE FARMER 09/01/2015 Office visit Kaylynn Mendez VEGETABLE FARMER 07/30/2015 Office visit Heena Dumont MD 07/15/2015 Office visit Kaylynn Mendez VEGETABLE FARMER 07/04/2015 Office visit Heena Dumont MD 06/06/2015 Office visit Heena Dumont MD 06/06/2015 Office visit Kaylynn Mendez VEGETABLE FARMER 06/02/2015 Office visit Kaylynn Mendez VEGETABLE FARMER 05/26/2015 Office visit Kaylynn Mendez VEGETABLE FARMER 05/20/2015 Office visit Kaylynn Mendez VEGETABLE FARMER 05/08/2015 Office visit Heena Dumont MD 05/06/2015 Office visit Kaylynn Mendez VEGETABLE FARMER 04/29/2015 Office visit Kaylynn Mendez VEGETABLE FARMER 03/27/2015 Voided Brittni Yanez VEGETABLE FARMER 03/21/2015 Office visit Heena Dumont MD 03/12/2015 Office visit Kaylynn Mendez VEGETABLE FARMER 02/26/2015 Office visit Brittni Yanez VEGETABLE FARMER 02/13/2015 Office visit Heena Duomnt MD 01/15/2015 Office visit Brittni Yanez VEGETABLE FARMER 01/13/2015 Office visit Heena Dumont MD 01/08/[address] Carol Fowler MD 01/01/2015 Office visit Brittni Yanez VEGETABLE FARMER 12/13/2014 Office visit Heena Dumont MD 11/27/2014 Office visit Kaylynn Mendez VEGETABLE FARMER 11/14/2014 Office visit Heena Dumont MD 10/18/2014 Office visit Heena Dumont MD 10/17/2014 [facility] John Hoskins MD 10/09/2014 Office visit Heena Dumont MD 09/25/2014 Office visit Heena Dumont MD 09/17/2014 Office visit Kaylynn Mendez VEGETABLE FARMER 09/04/2014 Office visit Heena Dumont MD 08/28/2014 Office visit Kaylynn Mendez VEGETABLE FARMER 08/23/2014 [facility] John Hoskins MD 08/01/2014 Office visit Kaylynn Mendez VEGETABLE FARMER 07/29/2014 Office visit Heena Dumont MD 07/25/2014 Nurse visit Heena Dumont MD 07/17/2014 Office visit Kaylynn Mendez VEGETABLE FARMER 07/11/2014 Office visit Heena Dumont MD 07/01/2014 Office visit Heena Dumont MD 06/25/2014 Office visit Kaylynn Mendez VEGETABLE FARMER 06/12/2014 Office visit Kaylynn Mendez VEGETABLE FARMER 06/06/2014 Office visit Kaylynn Mendez VEGETABLE FARMER 05/27/2014 Office visit Heena Dumont MD 04/20/2014 Office visit Yesica Falcon VEGETABLE FARMER 03/29/2014 Office visit Na Jones VEGETABLE FARMER 03/15/2014 Office visit Heena Dumont MD 2014 Office visit Heena Dumont MD 2014 [facility] John Hoskins MD 02/27/2014 Nurse visit Heena Dumont MD 02/13/2014 Office visit Lena El VEGETABLE FARMER 02/07/2014 Office visit Heena Dumont MD 02/03/2014 Office visit Na Jones VEGETABLE FARMER 01/30/2014 Office visit Kaylynn Mendez VEGETABLE FARMER 01/24/2014 Office visit Sundeep Russell VEGETABLE FARMER 01/16/2014 Office visit Kaylynn Walker VEGETABLE FARMER 01/10/2014 Nurse visit Kaylynn Mendez VEGETABLE FARMER 01/08/2014 Office visit Kaylynn Walker VEGETABLE FARMER 12/05/2013 Office visit Kaylynn Walker VEGETABLE FARMER 11/21/2013 Office visit Kaylynn Walker VEGETABLE FARMER 10/23/2013 Office visit Brittni Yanez VEGETABLE FARMER 10/17/2013 Nurse visit Heena Dumont MD 10/12/2013 Office visit Kaylynn Mendez VEGETABLE FARMER 10/02/2013 Office visit Heena Dumont MD 09/20/2013 Nurse visit Kaylynn Mendez VEGETABLE FARMER 09/20/2013 Voided Heena Dumont MD 09/14/2013 Office visit Kaylynn Walker VEGETABLE FARMER 09/05/2013 Office visit Sundeep Drew VEGETABLE FARMER 09/04/2013 Nurse visit Kaylynn Walker VEGETABLE FARMER 08/31/2013 Office visit Kaylynn Walker VEGETABLE FARMER 08/23/2013 Office visit Heena Dumont MD 08/10/2013 Office visit Kaylynn Walker VEGETABLE FARMER 07/25/2013 Office visit Kaylynn Walker VEGETABLE FARMER 07/18/2013 Office visit Kaylynn Walker VEGETABLE FARMER 07/12/2013 Office visit Kaylynn Walker VEGETABLE FARMER 06/28/2013 Nurse visit Kaylynn Walker VEGETABLE FARMER 06/14/2013 Nurse visit Kaylynn Walker VEGETABLE FARMER 06/08/2013 Nurse visit Kaylynn Walker VEGETABLE FARMER 05/31/2013 Nurse visit Chadd Norris DO 05/18/2013 Office visit Terese Davidson MD 05/16/2013 Office visit Kaylynn Walker VEGETABLE FARMER 05/09/2013 Office visit Kaylynn Mendez VEGETABLE FARMER 04/29/2013 [facility] John Hoskins MD 04/25/2013 Nurse visit Kaylynn Walker VEGETABLE FARMER 04/17/2013 Office visit Kaylynn Walker VEGETABLE FARMER 04/03/2013 Nurse visit Kaylynn Mendez VEGETABLE FARMER 04/03/2013 Office visit Terese Davidson MD 03/28/2013 Office visit Sundeep Russell VEGETABLE FARMER 03/21/2013 Office visit Kaylynn Mendez VEGETABLE FARMER 03/20/2013 Office visit Terese Davidson MD 03/14/2013 Nurse visit Kaylynn Walker VEGETABLE FARMER 03/05/2013 Nurse visit Kaylynn Mendez VEGETABLE FARMER 02/19/2013 Office visit Terese Davidson MD 02/16/2013 Nurse visit Kaylynn Mendez VEGETABLE FARMER 02/09/2013 Office visit Sundeep Russell VEGETABLE FARMER 02/08/2013 Nurse visit Kaylynn Walker VEGETABLE FARMER 02/01/2013 Nurse visit Kaylynn Walker VEGETABLE FARMER 01/26/2013 Nurse visit Sabrina Mendez [employer] 01/25/2013 Office visit Kaylynn Walker VEGETABLE FARMER 01/22/2013 Office visit Yoan Castaneda MD 01/18/2013 Nurse visit Kaylynn Walker VEGETABLE FARMER 01/11/2013 Nurse visit Kaylynn Walker VEGETABLE FARMER 01/05/2013 Nurse visit Kaylynn Walker VEGETABLE FARMER 12/29/2012 Office visit Kaylynn Walker VEGETABLE FARMER 11/27/2012 Office visit Kaylynn Walker VEGETABLE FARMER 11/08/2012 Office visit Odell Tierney MD 11/08/2012 Voided Odell Tierney MD 11/07/2012 Office visit Kaylynn Walker VEGETABLE FARMER 10/31/2012 [facility] John Hoskins MD 10/31/2012 Office visit Kaylynn Mendez VEGETABLE FARMER 10/19/2012 Office visit Genoveva Ayala VEGETABLE FARMER 10/10/2012 Office visit Kaylynn Andrea VEGETABLE FARMER 10/03/2012 Office visit Kaylynn Walker VEGETABLE FARMER 09/26/2012 Office visit Kaylynn Walker VEGETABLE FARMER 09/06/2012 Office visit Kaylynn Mendez VEGETABLE FARMER 09/06/2012 Office visit Odell Tierney MD 08/31/2012 Voided Kaylynn Mendez VEGETABLE FARMER 07/28/2012 Office visit Kaylynn Mendez VEGETABLE FARMER 07/27/2012 Office visit David Joyner DO 07/20/2012 [facility] David Joyner DO 07/13/2012 [facility] David Joyner DO 07/11/2012 Office visit Kaylynn Mendez VEGETABLE FARMER 06/27/2012 [facility] Odell Tierney MD 06/21/2012 Office visit David Joyner DO 06/21/2012 Office visit Odell Tierney MD 06/20/2012 Office visit Brittni Yanez VEGETABLE FARMER 06/06/2012 Office visit Odell Tierney MD 05/03/2012 Office visit Kaylynn Mendez VEGETABLE FARMER 04/28/2012 Office visit Brittni Yanez VEGETABLE FARMER 04/11/2012 Office visit Kaylynn Mendez VEGETABLE FARMER 04/06/2012 [facility] John Hoskins MD 03/30/2012 Office visit Kaylynn Mendez VEGETABLE FARMER 03/15/2012 Office visit Kaylynn Mendez VEGETABLE FARMER 03/15/2012 Office visit Odell Tierney MD 02/09/2012 Office visit Kaylynn Mendez VEGETABLE FARMER 12/23/2011 Office visit Kaylynn Mendez VEGETABLE FARMER 11/02/2011 Office visit Kaylynn Mendez VEGETABLE FARMER 10/14/2011 Office visit Kaylynn Mendez VEGETABLE FARMER 09/27/2011 Office visit Kaylynn Mendez VEGETABLE FARMER 08/19/2011 [facility] John Hoskins MD 08/18/2011 [facility] John Hoskins MD 08/18/2011 Office visit Kaylynn Mendez VEGETABLE FARMER 08/02/2011 Office visit Kaylynn Mendez VEGETABLE FARMER 07/08/2011 Office visit Kaylynn Mendez VEGETABLE FARMER 07/05/2011 Office visit Odell Tierney MD 06/15/2011 Office visit Kaylynn Mendez VEGETABLE FARMER 05/14/2011 Office visit Kaylynn Mendez VEGETABLE FARMER 05/11/2011 Office visit Odell Tierney MD 04/28/2011 Office visit Kaylynn Mendez VEGETABLE FARMER 03/02/2011 Office visit Chadd Norris DO 02/17/2011 [...] 02/06/2010 Office visit Vickie STEIN 02/04/2010 Surgery oYan Castaneda MD 01/29/2010 Office visit Hillary RITCHIE 12/23/2009 Surgery Yoan Castaneda MD 12/16/2009 Surgery Yoan Castaneda MD 12/10/2009 Office visit Odell Tierney MD 11/26/2009 Office visit Yoan Castaneda MD 11/17/2009 Office visit Odell Tierney MD 11/10/2009 Office visit Chadd Norris DO
--- OUTSIDE RECORDS SUMMARY | 2018-05-09 16:02 | XMS REPORT ---
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 Larry Novoa 33 gauge [facility] 01/21/2016 use as directed omeprazole 20 mg [...] inhalation route every 6 hours as needed gentamicin 0.3 % ophthalmic (eye) drops 02/25/2017 [...] route 2 times per day with food phenazopyridine 100 mg oral tablet take 1 [...] ORAL ROUTE ONCE DAILY FOR 7 DAYS Name Start Date Expiration Date SIG Comments [...] 08/27/2014 use as directed for 99 days Cougar 5-325 mg oral tablet 06/17/2014 06/27/2014 take [...] a day as needed for 30 days msecdibo-cfjxyqcje-FQ 3.5-10,000-1 mg/mL-unit/mL-% otic drops,suspension 201401/08/2015 instill 4 [...] Ok for similiar substitution or individual components. ruxzbyyy-warseicjk-LT 3.5-10,000-1 mg/mL-unit/mL-% otic drops,suspension 201607/23/2016 instill 4 [...] HC BMI BSA BMI Percentile O2 Sat(%) 10/27/2017 10:04:00 AM 112 mmHg 70 mmHg [...] Reviewed 04/28/2011 12:00 AM Decadron 1 mg ND#[id number] (Jr) Reviewed 04/28/2011 12:00 AM Depo-Medrol 80 mg ND#[id number]-Xcmifkjg Reviewed 09/02/2015 12:00 AM Toradol 60 Mg NDC#6552-4988-53 Reviewed 09/02/2015 12:00 AM Phenergan, Up to 50 Mg RHC Medicaid Reviewed 09/16/2015 12:00 AM Toradol 60 Mg NDC#0762-7686-41 Reviewed 09/16/2015 12:00 AM Phenergan Up to 50 mg RHC Medicare Reviewed 05/11/2011 12:00 AM N BLOCK INJ OCCIPITAL Reviewed 05/11/2011 12:00 AM Kengretta Vu-[id number] ANNA Reviewed 11/13/2015 12:00 AM ASSAY OF [...] SC/IM Reviewed 07/08/2011 12:00 AM Toradol,15mg [facility]#[id number], [place] Reviewed 07/08/2011 12:00 AM Phenergan 50 Mg Im [facility] 2870-1245-70 [place] Reviewed 01/21/2016 12:00 AM ECG MONIT/REPRT UP TO 48 HRS Returned 08/02/2011 12:00 AM THER/PROPH/DIAG INJ SC/IM Reviewed 08/02/2011 12:00 AM Decadron 1 mg [facility]#[id number] (Jr) Reviewed 08/02/2011 12:00 AM Depo-Medrol 80 mg [facility]#[id number]-Xnwyxbqd Reviewed 03/05/2016 12:00 AM COMPLETE CBC W/AUTO DIFF WBC Reviewed 03/05/2016 12:00 AM STREP A ASSAY W/OPTIC Reviewed 03/05/2016 12:00 AM C-REACTIVE PROTEIN Reviewed 03/18/2016 12:00 AM [facility] MED[facility] - flu vaccine administration Reviewed [...] 09/27/2011 12:00 AM Depo-Medrol 80 mg [facility]#[id number]-Jldxfida Reviewed 09/27/2011 12:00 AM Depo-Medrol 40 mg [facility]#[id number] Reviewed 07/06/2016 12:00 AM CHEST X-RAY 4/> [...] Reviewed 12/23/2011 12:00 AM Decadron 1 mg NDC#[id number] (Jr) Reviewed 12/23/2011 12:00 AM Depo-Medrol 80 mg NDC#[id number]-Dxehipvp Reviewed 11/02/2016 11:45 AM URINALYSIS AUTO W/O [...] Reviewed 02/09/2012 12:00 AM Decadron 1 mg NDC#33698952050 (Jr) Reviewed 02/09/2012 12:00 AM Depo-Medrol 80 mg NDC#14293411092-Msjhbvfl Reviewed 02/21/2017 12:00 AM CULTURE OTHR SPECIMN AEROBIC Returned 02/21/2017 12:00 AM INFLUENZA ASSAY W/OPTIC Returned 02/23/2017 12:00 AM COMPLETE CBC W/AUTO DIFF WBC Reviewed 02/23/2017 12:00 AM X-RAY EXAM OF KNEE 3 Returned 03/15/2012 12:00 AM N BLOCK INJ OCCIPITAL Reviewed 03/15/2012 12:00 AM Kenalog Vx-[address]-20 ANNA Reviewed 04/11/2012 12:00 AM COMPLETE CBC [...] 12:00 AM Decadron, Per 1 Mg [facility]# [address]-17 Reviewed 06/20/2012 12:00 AM Depo-Medrol, Per 80 Mg [facility]#1852-3807-30 Reviewed 09/06/2017 12:00 AM RADEX FOOT COMPLETE MINIMUM 3 VIEWS Returned 09/06/2017 12:00 AM X-RAY EXAM RIBS UNI 2 VIEWS Returned 08/15/2017 12:00 AM COMPLETE CBC W/AUTO DIFF WBC Returned 08/15/2017 12:00 AM COMPREHEN METABOLIC PANEL Returned 08/15/2017 12:00 AM URINALYSIS AUTO W/SCOPE Returned 09/06/2012 12:00 AM N BLOCK INJ OCCIPITAL Reviewed 09/06/2012 12:00 AM Kenalog Lw-[address]-20 ANNA Reviewed 09/06/2012 12:00 AM X-RAY EXAM RIBS UNI 2 VIEWS Reviewed 09/26/2012 12:00 AM THER/PROPH/DIAG INJ SC/IM Reviewed 09/26/2012 12:00 AM Decadron, Per 1 Mg [facility]# [address]-61 Reviewed 09/26/2012 12:00 AM Depo-Medrol, Per 80 Mg [facility]#6662-0022-42 Reviewed 10/03/2012 12:00 AM URINALYSIS AUTO W/O SCOPE Reviewed 10/03/2012 12:00 AM THER/PROPH/DIAG INJ SC/IM Reviewed 10/03/2012 12:00 AM Toradol 60 Mg [facility]#7132-8372-52 Reviewed 10/03/2012 12:00 AM Phenergan, 25Mg [facility]#0638-7287-78 Reviewed 10/19/2012 12:00 AM N BLOCK INJ OCCIPITAL Reviewed 10/19/2012 12:00 AM Kenalog, Per 10 Mg [facility]#5013-7717-48 Reviewed 10/19/2012 12:00 AM Toradol 30 Mg [facility]#9215-0484-91 Reviewed 10/19/2012 12:00 AM THER/PROPH/DIAG INJ SC/IM Reviewed 10/31/2012 12:00 AM COMPLETE CBC W/AUTO DIFF WBC Reviewed 10/31/2012 12:00 AM COMPREHEN METABOLIC PANEL Reviewed 10/31/2012 12:00 AM LIPID PANEL Reviewed 10/31/2012 12:00 AM ELECTROCARDIOGRAM COMPLETE Reviewed 11/03/2012 12:[address] THORAX W/O & W/DYE Reviewed 11/08/2012 12:00 AM N BLOCK INJ OCCIPITAL Reviewed 11/08/2012 12:00 AM Kenalog Uw-[address]-20 ANNA Reviewed 11/27/2012 12:00 AM COMPLETE CBC [...] 12:00 AM Decadron, Per 1 Mg [facility]# [address]-93 Reviewed 01/25/2013 12:00 AM Depo-Medrol, Per 80 Mg [facility]#2103-6232-57 Reviewed 01/26/2013 12:00 AM IMMUNOTHERAPY ONE INJECTION [...] 12:00 AM Decadron, Per 1 Mg [facility]# [address]-13 Reviewed 05/16/2013 12:00 AM Depo-Medrol, Per 80 Mg [facility]#5701-7309-11 Reviewed 05/31/2013 12:00 AM IMMUNOTHERAPY INJECTIONS Reviewed 06/08/2013 12:00 AM IMMUNOTHERAPY INJECTIONS Reviewed 06/14/2013 12:00 AM IMMUNOTHERAPY INJECTIONS Reviewed 06/28/2013 12:00 AM IMMUNOTHERAPY INJECTIONS Reviewed 07/12/2013 12:00 AM X-RAY EXAM RIBS UNI 2 VIEWS Reviewed 07/18/2013 12:00 AM Toradol 60 Mg [facility]#9695-3065-00 Reviewed 07/18/2013 12:00 AM THER/PROPH/DIAG INJ SC/IM Reviewed 08/23/2013 12:00 AM COMPLETE CBC W/AUTO DIFF WBC Reviewed 08/23/2013 12:00 AM COMPREHEN METABOLIC PANEL Reviewed 08/23/2013 12:00 AM LIPID PANEL Reviewed 08/31/2013 12:00 AM X-RAY EXAM OF LOWER LEG Reviewed 09/04/2013 12:00 AM IMMUNOTHERAPY INJECTIONS Reviewed 09/14/2013 12:00 AM THER/PROPH/DIAG INJ SC/IM Reviewed 09/14/2013 12:00 AM Decadron, Per 1 Mg [facility]# [address]-97 Reviewed 09/14/2013 12:00 AM Depo-Medrol, Per 80 Mg [facility]#3448-0593-03 Reviewed 09/20/2013 12:00 AM IMMUNOTHERAPY INJECTIONS Reviewed [...] INJ OCCIPITAL Reviewed 12/10/2009 12:00 AM Kenalog Vb-[address]-20 ANNA Reviewed 12/16/2009 12:00 AM HIV-1ANTIBODY Reviewed 12/16/2009 12:00 AM COMPLETE CBC W/AUTO DIFF WBC Reviewed 12/16/2009 12:00 AM METABOLIC PANEL TOTAL CA Reviewed 12/16/2009 12:00 AM Type and screen Reviewed 12/16/2009 12:00 AM PROTHROMBIN TIME Reviewed 12/16/2009 12:00 AM THROMBOPLASTIN TIME PARTIAL Reviewed 03/18/2010 12:00 AM DRAIN/INJ JOINT/BURSA W/O US Reviewed 03/18/2010 12:00 AM Kenalog Qo-[address]-20 ANNA Reviewed 11/21/2013 12:00 AM RADEX HAND MINIMUM 3 VIEWS Reviewed 06/03/2010 12:00 AM INJ TRIGGER POINT 1/2 MUSCL Reviewed 06/03/2010 12:00 AM Kenalog per 10Mg Im-Nd#[address]-63(Niall) Reviewed 12/05/2013 12:00 AM COMPLETE CBC W/AUTO [...] Reviewed 07/23/2010 12:00 AM Kenalog per 10Mg Im-Nd#[address]-73(Niall) Reviewed 2014 12:00 AM COMPLETE CBC W/AUTO [...] INJ OCCIPITAL Reviewed 10/01/2010 12:00 AM Kenalog Xv-[address]-20 ANNA Reviewed 07/25/2014 12:00 AM THER/PROPH/DIAG INJ [...] Quant,IgM <0.80 RMSF , IgG, EIA Negative Dejuan Mtn Spotted Fever,IgM 0.51 E. chaffeensis (HME) IgGTiter [...] 141 Influenza 04/24/2014 sanofi pasteur PMC FLUZONE [id number] Intramuscular Left Upper Arm 02/27/2014 01/15/2014 141 Influenza 02/13/2015 sanofi pasteur PMC FLUZONE [id number] Intramuscular Left Deltoid 02/13/2015 01/03/2015 140 Tdap 06/06/2015 [employer] SKB BOOSTRIX [id number] Intramuscular Left Deltoid 06/06/2015 07/23/2014 115 Influenza 03/18/2016 sanofi pasteur PMC FLUZONE [id number] Intramuscular Left Deltoid 03/17/2016 01/03/2015 141 History [...] Lumbago Jul 05 2011 1:58PM Muscle Spasm b 2011 1:58PM Headache Jul 08 2011 1:38PM [...] 10:48AM Cough b 2016 10:48AM Otitis externa b 7 2016 10:48AM Bulging of cervical intervertebral [...] mellitus with hyperglycemia Jun 24 2017 10:33AM 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 Jun 24 2017 [...] 2017 10:10AM Insomnia, Oct 27 2017 10:10AM Payers Insurance Name Company Name Plan Name Plan Number Policy Number Policy Group Number Start Date Medicare RHC Medicare RHC [id number] N/A [facility] Comm [id number] N/A Medicare Part A Medicare - Lab/ay [id number] N/A Medicare Part B Medicare Of [place] [id number] Monday, February 28, 2000 [place] [employer] [place] [employer] [place] [id number] Tuesday, November 10, 2009 Medicare Part A Medicare Part A [id number] N/A [place] Bed Placement Coordinator Prog - RHC [place] Bed Placement Coordinator Prog - RHC [id number] [facility] Comm Plan of [id number] Wednesday, May 30, 2012 History of Encounters Visit Date Visit Type Provider 10/27/2017 Office visit Kaylynn Mendez APRN 09/14/2017 Office visit Heena Dumont MD 09/06/2017 Office visit Kaylynn Mendez APRN 08/15/2017 Office visit Heena Dumont MD 07/18/2017 Office visit Heena Dumont MD 06/28/2017 Office visit 06/28/2017 Office visit Lena El BLIND EYELETTER 06/24/2017 Office visit Sundeep Russell BLIND EYELETTER 06/02/2017 Office visit Heena Dumont MD 04/20/2017 Office visit 04/20/2017 Office visit 04/20/2017 Office visit 04/20/2017 Office visit Heena Dumont MD 03/22/2017 Office visit Heena Dumont MD 03/05/2017 Office visit Lena Chaves BLIND EYELETTER 02/23/2017 Office visit Symone Gaby Marie BLIND EYELETTER 02/21/2017 Office visit Heena Dumont MD 02/15/2017 Office visit Heena Dumont MD 02/02/2017 Office visit Heena Dumont MD 01/07/2017 Office visit Riccardo Cardoza MD 01/03/2017 Office visit Heena Dumont MD 12/15/2016 Office visit Kaylynn Mendez BLIND EYELETTER 12/02/2016 Office visit Heena Dumont MD 11/23/2016 [facility] Eliseo Hoskins MD 11/23/2016 Office visit Kaylynn Mendez BLIND EYELETTER 11/17/2016 Office visit Kaylynn Mendez BLIND EYELETTER 11/05/2016 Office visit Riccardo Cardoza MD 11/02/2016 Office visit Heena Dumont MD 10/06/2016 Office visit Kaylynn Mendez BLIND EYELETTER 09/22/2016 Office visit Heena Dumont MD 09/09/2016 Office visit Kaylynn Mendez BLIND EYELETTER 08/27/2016 Office visit Riccardo Cardoza MD 08/26/2016 Office visit Heena Dumont MD 07/09/2016 Office visit Riccardo Cardoza MD 07/06/2016 Office visit Heena Dumont MD 06/18/2016 Office visit Kaylynn Mendez BLIND EYELETTER 06/07/2016 Office visit Sundeep Russell BLIND EYELETTER 06/04/2016 Office visit Heena Dumont MD 05/13/2016 Office visit Heena Dumont MD 05/03/2016 Office visit Heena Dumont MD 04/26/2016 Office visit Kaylynn Mendez BLIND EYELETTER 04/14/2016 Office visit Heena Dumont MD 04/13/2016 Office visit Kaylynn Mendez BLIND EYELETTER 04/02/2016 Office visit Lena El BLIND EYELETTER 04/02/2016 Office visit Heena Dumont MD 03/26/2016 Office visit Yesica Falcon BLIND EYELETTER 03/17/2016 Office visit Heena Dumont MD 03/05/2016 Office visit Kaylynn Mendez BLIND EYELETTER 02/16/2016 Office visit Heena Dumont MD 02/14/2016 Office visit Na Jones BLIND EYELETTER 01/16/2016 Office visit Heena Dumont MD 12/16/2015 Office visit Heena Dumont MD 11/24/2015 Office visit Kaylynn Mendez BLIND EYELETTER 11/18/2015 Office visit Heena Dumont MD 11/03/2015 Office visit Sundeep Russell BLIND EYELETTER 10/20/2015 Office visit Kaylynn Mendez BLIND EYELETTER 09/23/2015 Office visit Kaylynn Mendez BLIND EYELETTER 09/16/[address] Pepe Figueroa MD 09/02/2015 Office visit Kaylynn Mendez BLIND EYELETTER 09/01/2015 Office visit Kaylynn Mendez BLIND EYELETTER 07/30/2015 Office visit Heena Dumont MD 07/15/2015 Office visit Kaylynn Mendez BLIND EYELETTER 07/04/2015 Office visit Heena Dumont MD 06/06/2015 Office visit Heena Dumont MD 06/06/2015 Office visit Kaylynn Mendez BLIND EYELETTER 06/02/2015 Office visit Kaylynn Walker BLIND EYELETTER 05/26/2015 Office visit Kaylynn Mendez BLIND EYELETTER 05/20/2015 Office visit Kaylynn Mendez BLIND EYELETTER 05/08/2015 Office visit Heena Dumont MD 05/06/2015 Office visit Kaylynn Mendez BLIND EYELETTER 04/29/2015 Office visit Kaylynn Mendez BLIND EYELETTER 03/27/2015 Voided Brittni Yanez BLIND EYELETTER 03/21/2015 Office visit Heena Dumont MD 03/12/2015 Office visit Kaylynn Mendez BLIND EYELETTER 02/26/2015 Office visit Brittni Yanez BLIND EYELETTER 02/13/2015 Office visit Heena Dumont MD 01/15/2015 Office visit Brittni Yanez BLIND EYELETTER 01/13/2015 Office visit Heena Dumont MD 01/08/[address] Carol Fowler MD 01/01/2015 Office visit Brittni Yanez BLIND EYELETTER 12/13/2014 Office visit Heena Dumont MD 11/27/2014 Office visit Kaylynn Mendez BLIND EYELETTER 11/14/2014 Office visit Heena Dumont MD 10/18/2014 Office visit Heena Dumont MD 10/17/2014 [facility] Eliseo Hoskins MD 10/09/2014 Office visit Heena Dumont MD 09/25/2014 Office visit Heena Dumont MD 09/17/2014 Office visit Kaylynn Mendez BLIND EYELETTER 09/04/2014 Office visit Heena Dumont MD 08/28/2014 Office visit Kaylynn Mendez BLIND EYELETTER 08/23/2014 [facility] John Hoskins MD 08/01/2014 Office visit Kaylynn Mendez BLIND EYELETTER 07/29/2014 Office visit Heena Dumont MD 07/25/2014 Nurse visit Heena Dumont MD 07/17/2014 Office visit Kaylynn Mendez BLIND EYELETTER 07/11/2014 Office visit Heena Dumont MD 07/01/2014 Office visit Heena Dumont MD 06/25/2014 Office visit Kaylynn Mendez BLIND EYELETTER 06/12/2014 Office visit Kaylynn Mendez BLIND EYELETTER 06/06/2014 Office visit Kaylynn Mendez BLIND EYELETTER 05/27/2014 Office visit Heena Dumont MD 04/20/2014 Office visit Yesica Falcon BLIND EYELETTER 03/29/2014 Office visit Na Jones BLIND EYELETTER 03/15/2014 Office visit Heena Dumont MD 2014 Office visit Heena Dumont MD 2014 [facility] John Hoskins MD 02/27/2014 Nurse visit Heena Dumont MD 02/13/2014 Office visit Lena El BLIND EYELETTER 02/07/2014 Office visit Heena Dumont MD 02/03/2014 Office visit Na Jones BLIND EYELETTER 01/30/2014 Office visit Kaylynn Mendez BLIND EYELETTER 01/24/2014 Office visit Sundeep Russell BLIND EYELETTER 01/16/2014 Office visit Kaylynn Mendez BLIND EYELETTER 01/10/2014 Nurse visit Kaylynn Mendez BLIND EYELETTER 01/08/2014 Office visit Kaylynn Mendez BLIND EYELETTER 12/05/2013 Office visit Kaylynn Mendez BLIND EYELETTER 11/21/2013 Office visit Kaylynn Mendez BLIND EYELETTER 10/23/2013 Office visit Brittni Yanez BLIND EYELETTER 10/17/2013 Nurse visit Heena Dumont MD 10/12/2013 Office visit Kaylynn Mendez BLIND EYELETTER 10/02/2013 Office visit Heena Dumont MD 09/20/2013 Nurse visit Kaylynn Mendez BLIND EYELETTER 09/20/2013 Voided Heena Dumont MD 09/14/2013 Office visit Kaylynn Mendez BLIND EYELETTER 09/05/2013 Office visit Sundeep Russell BLIND EYELETTER 09/04/2013 Nurse visit Kaylynn Mendez BLIND EYELETTER 08/31/2013 Office visit Kaylynn Mendez BLIND EYELETTER 08/23/2013 Office visit Heena Dumont MD 08/10/2013 Office visit Kaylynn Walker BLIND EYELETTER 07/25/2013 Office visit Kaylynn Walker BLIND EYELETTER 07/18/2013 Office visit Kaylynn Walker BLIND EYELETTER 07/12/2013 Office visit Kaylynn Walker BLIND EYELETTER 06/28/2013 Nurse visit Kaylnyn Walker BLIND EYELETTER 06/14/2013 Nurse visit Kaylynn Walker BLIND EYELETTER 06/08/2013 Nurse visit Kaylynn Walker BLIND EYELETTER 05/31/2013 Nurse visit Chadd Norris DO 05/18/2013 Office visit Terese Davidson MD 05/16/2013 Office visit Kaylynn Walker BLIND EYELETTER 05/09/2013 Office visit Kaylynn Walker BLIND EYELETTER 04/29/2013 [facility] John Hoskins MD 04/25/2013 Nurse visit Kaylynn Walker BLIND EYELETTER 04/17/2013 Office visit Kaylynn Walker BLIND EYELETTER 04/03/2013 Nurse visit Kaylynn Walker BLIND EYELETTER 04/03/2013 Office visit Terese Davidson MD 03/28/2013 Office visit Sundeep Russell BLIND EYELETTER 03/21/2013 Office visit Kaylynn Mendez BLIND EYELETTER 03/20/2013 Office visit Terese Davidson MD 03/14/2013 Nurse visit Kaylynn Walker BLIND EYELETTER 03/05/2013 Nurse visit Kaylynn Mendez BLIND EYELETTER 02/19/2013 Office visit Terese Davidson MD 02/16/2013 Nurse visit Kaylynn Mendez BLIND EYELETTER 02/09/2013 Office visit Sundeep Russell BLIND EYELETTER 02/08/2013 Nurse visit Kaylynn Walker BLIND EYELETTER 02/01/2013 Nurse visit Kaylynn Walker BLIND EYELETTER 01/26/2013 Nurse visit Sabrina Mendez SENIOR BUSINESS CONSULTANT 01/25/2013 Office visit Kaylynn Andrea BLIND EYELETTER 01/22/2013 Office visit Yoan Castaneda MD 01/18/2013 Nurse visit Kaylynn Walker BLIND EYELETTER 01/11/2013 Nurse visit Kaylynn Walker BLIND EYELETTER 01/05/2013 Nurse visit Kaylynn Walker BLIND EYELETTER 12/29/2012 Office visit Kaylynn Walker BLIND EYELETTER 11/27/2012 Office visit Kaylynn Mendez BLIND EYELETTER 11/08/2012 Office visit Odell Tierney MD 11/08/2012 Voided Odell Tierney MD 11/07/2012 Office visit Kaylynn Mendez BLIND EYELETTER 10/31/2012 [facility] John Hoskins MD 10/31/2012 Office visit Kaylynn Mendze BLIND EYELETTER 10/19/2012 Office visit Genoveva Ayala BLIND EYELETTER 10/10/2012 Office visit Kaylynn Mendez BLIND EYELETTER 10/03/2012 Office visit Kaylynn Walker BLIND EYELETTER 09/26/2012 Office visit Kaylynn Walker BLIND EYELETTER 09/06/2012 Office visit Kaylynn Mendez BLIND EYELETTER 09/06/2012 Office visit Odell Tierney MD 08/31/2012 Voided Kaylynn Mendez BLIND EYELETTER 07/28/2012 Office visit Kaylynn Mendez BLIND EYELETTER 07/27/2012 Office visit David Ar DO 07/20/2012 Hospital David Joyner DO 07/13/2012 [facility] David Joyner DO 07/11/2012 Office visit Kaylynn Mendez BLIND EYELETTER 06/27/2012 [facility] Odell Tierney MD 06/21/2012 Office visit David Joyner DO 06/21/2012 Office visit Odell Tierney MD 06/20/2012 Office visit Brittni Yanez BLIND EYELETTER 06/06/2012 Office visit Odell Tierney MD 05/03/2012 Office visit Kaylynn Mendez BLIND EYELETTER 04/28/2012 Office visit Brittni Yanez BLIND EYELETTER 04/11/2012 Office visit Kaylynn Mendez BLIND EYELETTER 04/06/2012 [facility] John Hoskins MD 03/30/2012 Office visit Kaylynn Mendez BLIND EYELETTER 03/15/2012 Office visit Kaylynn Mendez BLIND EYELETTER 03/15/2012 Office visit Odell Tierney MD 02/09/2012 Office visit Kaylynn Mendez BLIND EYELETTER 12/23/2011 Office visit Kaylynn Mendez BLIND EYELETTER 11/02/2011 Office visit Kaylynn Mendez BLIND EYELETTER 10/14/2011 Office visit Kaylynn Mendez BLIND EYELETTER 09/27/2011 Office visit Kaylynn Mendez BLIND EYELETTER 08/19/2011 [facility] John Hoskins MD 08/18/2011 [facility] John Hoskins MD 08/18/2011 Office visit Kaylynn Mendez BLIND EYELETTER 08/02/2011 Office visit Kaylynn Mendez BLIND EYELETTER 07/08/2011 Office visit Kaylynn Mendez BLIND EYELETTER 07/05/2011 Office visit Odell Tierney MD 06/15/2011 Office visit Kaylynn Mendez BLIND EYELETTER 05/14/2011 Office visit Kaylynn Mendez BLIND EYELETTER 05/11/2011 Office visit Odell Tierney MD 04/28/2011 Office visit Kaylynn Mendez BLIND EYELETTER 03/02/2011 Office visit Chadd Norris DO 02/17/2011 [...]
--- OUTSIDE RECORDS SUMMARY | 2018-05-09 16:06 | XMS REPORT ---
Author Kaylynn Lyles Organization [facility] Address [address] [place], [place] [id number] Care Team Providers Care Endoscopy Nurse Name Role Phone Kaylynn Mendez PCP Unavailable Allergies and Adverse Reactions Name Reaction Notes Aspirin Methadone Ultram Vicodin Plan of Treatment Planned Activity Comments Planned Date Planned Time Plan/Goal CINE/VID X-RAY THROAT/ESOPH 05/08/2015 12:00 AM BORDETELLA ANTIBODY 05/20/2015 12:00 AM ELECTROCARDIOGRAM COMPLETE 10/31/2012 12:00 AM [...] 09/05/2015 apply by external route once daily oxycodone 5 mg oral tablet 05/11/2015 06/10/2015 take 1 tablet by oral route every 12 hours for 30 days naproxen 500 mg oral tablet 05/19/2015 08/17/2015 take 1 tablet by oral route 2 times a day for 30 days omeprazole 20 mg oral capsule,delayed release(DR/EC) 05/19/2015 09/16/2015 take 1 capsule (20 mg) by oral route once daily before a meal for 30 days promethazine-codeine 6.25-10 mg/5 mL oral syrup 05/20/2015 take 5 milliliters by oral route every 4-6 hours as needed, not to exceed 30 mL in 24 hours Zithromax Z-Simon 250 mg oral tablet 05/20/2015 05/25/2015 take 2 tablets ( 500 mg) by oral route once daily for 1 day then 1 tablet (250 mg) by oral route once daily for 4 days Name Start Date Expiration Date SIG [...] 08/27/2014 use as directed for 99 days Oakes 5-325 mg oral tablet 06/17/2014 06/27/2014 take [...] a day as needed for 30 days [id number]-[id number]-YY 3.5-10,000-1 mg/mL-unit/mL-% otic drops,suspension 201401/08/2015 instill 4 [...] oral route once daily for 7 days Discontinued Name Start Date [...] oral route every 4 hours as needed Problem List Description Status Onset Anemia Active [...] HC BMI BSA BMI Percentile O2 Sat(%) 05/20/2015 1:34:00 PM 124 mmHg 68 mmHg [...] rpm 97.4 F 190 lbs 64 in 32.61 kg/m2 1.9727 m 95 % 01/25/2013 10:59:00 AM 132 mmHg 72 mmHg 99 bpm 18 rpm 97.8 F 189.5 lbs 64 in 32.5273 kg/m 1.97 m2 98 % 01/22/2013 2:47:00 PM 133 mmHg 89 mmHg 107 bpm 98.2 F 186.25 lbs 64 in 31.97 kg/m2 1.9532 m 12/29/2012 10:06:00 AM 136 mmHg 68 mmHg 104 bpm 18 rpm 98.3 F 187.125 lbs 64 in 32.1196 kg/m 1.96 m2 99 % 11/27/2012 1:17:00 PM 122 mmHg 62 mmHg 108 bpm 18 rpm 98.6 F 189.25 lbs 64 in 32.48 kg/m2 1.9688 m 96 % 11/08/2012 3:13:00 PM 132 mmHg 90 mmHg 88 bpm 16 rpm 96.8 F 194 lbs 64 in 33.2997 kg/m 1.99 m2 11/07/2012 1:50:00 PM 138 mmHg 74 mmHg 98 bpm 18 rpm 98.9 F 194.125 lbs 64 in 33.32 kg/m2 1.994 m 10/31/2012 1:39:00 PM 142 mmHg 90 mmHg 76 bpm 18 rpm 97.8 F 196.125 lbs 64 in 33.6644 kg/m 2.00 m2 10/19/2012 3:47:00 PM 150 mmHg 90 mmHg 88 bpm 14 rpm 98.2 F 191 lbs 64 in 32.78 kg/m2 1.9779 m 10/10/2012 10:45:00 AM 130 mmHg 74 mmHg 100 bpm 18 rpm 98.9 F 191.5 lbs 64 in 32.8706 kg/m 1.98 m2 98 % 10/03/2012 10:46:00 AM 138 mmHg 78 mmHg 68 bpm 18 rpm 98.7 F 194.25 lbs 64 in 33.34 kg/m2 1.9947 m 09/26/2012 3:28:00 PM 134 mmHg 68 mmHg 72 bpm 18 rpm 98.4 F 193.375 lbs 64 in 33.1924 kg/m 1.99 m2 09/06/2012 2:13:00 PM 136 mmHg 76 mmHg 72 bpm 18 rpm 97.7 F 197.25 lbs 64 in 33.86 kg/m2 2.01 m 09/06/2012 7:56:00 AM 128 mmHg 88 mmHg 104 bpm 18 rpm 96.2 F 197.25 lbs 64 in 33.8575 kg/m 2.01 m2 08/31/2012 2:53:00 PM 132 mmHg 68 mmHg 68 bpm 18 rpm 98.1 F 194.125 lbs 64 in 33.32 kg/m2 1.994 m 07/28/2012 10:22:00 AM 126 mmHg 72 mmHg 68 bpm 18 rpm 96.7 F 193.5 lbs 07/11/2012 1:57:00 PM 132 mmHg 68 mmHg 68 bpm 18 rpm 98 F 197.5 lbs 06/21/2012 11:10:00 AM 136 mmHg 82 mmHg 100 bpm 18 rpm 98.8 F 196.375 lbs 64 in 33.7073 kg/m 2.01 m2 06/20/2012 3:53:00 PM 140 mmHg 90 mmHg 103 bpm 20 rpm 97.7 F 197 lbs 64 in 33.81 kg/m2 2.0087 m 97 % 06/06/2012 1:30:00 PM 134 mmHg 92 mmHg 102 bpm 18 rpm 97.2 F 194 lbs 64 in 33.2997 kg/m 1.99 m2 05/03/2012 10:51:00 AM 136 mmHg 72 mmHg 68 bpm 18 rpm 98.7 F 190.25 lbs 04/28/2012 2:04:00 PM 124 mmHg 68 mmHg 96 bpm 20 rpm 96.4 F 188.4 lbs 64 in 32.3385 kg/m 1.96 m2 04/11/2012 2:18:00 PM 110 mmHg 78 mmHg 101 bpm 18 rpm 98.8 F 190 lbs 64 in 32.61 kg/m2 1.9727 m 98 % 03/30/2012 1:36:00 PM 128 mmHg 68 mmHg 68 bpm 18 rpm 97.9 F 184.125 lbs 64 in 31.6047 kg/m 1.94 m2 03/15/2012 2:28:00 PM 124 mmHg 64 mmHg 64 bpm 18 rpm 97 F 182 lbs 64 in 31.24 kg/m2 1.9307 m 03/15/2012 12:54:00 PM 146 mmHg 82 mmHg 82 bpm 16 rpm 95.6 F 182.5 lbs 64 in 31.3257 kg/m 1.93 m2 02/09/2012 10:56:00 AM 132 mmHg 70 mmHg 68 bpm 18 rpm 97.8 F 181.125 lbs 64 in 31.09 kg/m2 1.9261 m 12/23/2011 2:48:00 PM 128 mmHg 66 mmHg 68 bpm 18 rpm 98.2 F 174.375 lbs 64 in 29.9311 kg/m 1.89 m2 11/02/2011 2:48:00 PM 132 mmHg 68 mmHg 84 bpm 18 rpm 98.4 F 172 lbs 64 in 29.52 kg/m2 1.877 m 94 % 10/14/2011 10:34:00 AM 126 mmHg 66 mmHg 66 bpm 18 rpm 96.6 F 171.125 lbs 64 in 29.3732 kg/m 1.87 m2 09/27/2011 3:14:00 PM 136 mmHg 64 mmHg 68 bpm 18 rpm 97.1 F 166.5 lbs 64 in 28.58 kg/m2 1.8467 m 08/18/2011 10:40:00 AM 126 mmHg 72 mmHg 68 bpm 18 rpm 98.6 F 160.5 lbs 64 in 27.5495 kg/m 1.81 m2 08/02/2011 2:47:00 PM 120 mmHg 68 mmHg 68 bpm 18 rpm 96.8 F 160.375 lbs 64 in 27.53 kg/m2 1.8124 m 07/08/2011 1:36:00 PM 136 mmHg 74 mmHg 68 bpm 18 rpm 97.7 F 161.125 lbs 64 in 27.6568 kg/m 1.82 m2 07/05/2011 1:57:00 PM 128 mmHg 90 mmHg 84 bpm 16 rpm 96.6 F 160 lbs 64 in 27.46 kg/m2 1.8103 m 06/15/2011 1:48:00 PM 138 mmHg 70 mmHg 68 bpm 18 rpm 97.4 F 160.5 lbs 64 in 27.5495 kg/m 1.81 m2 05/14/2011 10:30:00 AM 118 mmHg 68 mmHg 72 bpm 18 rpm 96.6 F 159.375 lbs 64 in 27.36 kg/m2 1.8068 m 05/11/2011 12:46:00 PM 108 mmHg 80 mmHg 62 bpm 16 rpm 97.8 F 155 lbs 64 in 26.6054 kg/m 1.78 m2 04/28/2011 9:16:00 AM 118 mmHg 68 mmHg 68 bpm 18 rpm 96.5 F 159.5 lbs 64 in 27.38 kg/m2 1.8075 m 03/02/2011 2:57:00 PM 134 mmHg 78 mmHg 80 bpm 18 rpm 98.2 F 02/17/2011 9:47:00 AM 130 mmHg 72 mmHg 76 bpm 18 rpm 97.2 F 155 lbs 01/19/2011 10:48:00 AM 126 mmHg 80 mmHg 76 bpm 16 rpm 95.6 F 154.5 lbs 64 in 26.5196 kg/m 1.78 m2 12/16/2010 2:49:00 PM 110 mmHg 76 mmHg 78 bpm 16 rpm 96.9 F 12/02/2010 2:21:00 PM 122 mmHg 85 mmHg 96 bpm 98.4 F 157.312 lbs 64 in 27.0024 kg/m 1.80 m2 11/24/2010 10:10:00 AM 128 mmHg [...] F 146.5 lbs 63.5 in 25.544 kg/m 1.73 m2 11/17/2009 9:05:00 AM 124 mmHg [...] X-RAY 2VW FRONTAL&LATL Returned 05/20/2015 12:00 AM FIBRIN DEGRADATION QUANT Returned 04/28/2011 12:00 AM THER/PROPH/DIAG INJ SC/IM Reviewed 04/28/2011 12:00 AM Decadron 1 mg ND#[id number] (Jr) Reviewed 04/28/2011 12:00 AM Depo-Medrol 80 mg NDC#[id number]-Kaawiliz Reviewed 05/11/2011 12:00 AM N BLOCK INJ OCCIPITAL Reviewed 05/11/2011 12:00 AM Kenalog Yq-[address]-20 ANNA Reviewed 06/15/2011 12:00 AM COMPLETE CBC W/AUTO DIFF WBC Returned 06/15/2011 12:00 AM COMPREHEN METABOLIC PANEL Returned 07/08/2011 12:00 AM THER/PROPH/DIAG INJ SC/IM Reviewed 07/08/2011 12:00 AM Toradol,15mg ND#[id number], Adilene Reviewed 07/08/2011 12:00 AM Phenergan 50 Mg Im Nd 3803-6280-95 ALLIE Hoskins Reviewed 08/02/2011 12:00 AM THER/PROPH/DIAG INJ SC/IM Reviewed 08/02/2011 12:00 AM Decadron 1 mg NDC#[id number] (Jr) Reviewed 08/02/2011 12:00 AM Depo-Medrol 80 mg NDC#[id number]-Jgbvtcam Reviewed 09/27/2011 12:00 AM THER/PROPH/DIAG INJ SC/IM Reviewed 09/27/2011 12:00 AM Depo-Medrol 80 mg NDC#[id number]-Uhycfyfk Reviewed 10/14/2011 12:00 AM X-RAY EXAM OF ABDOMEN Returned 10/14/2011 12:00 AM URINALYSIS AUTO W/O SCOPE Reviewed 12/23/2011 12:00 AM THER/PROPH/DIAG INJ SC/IM Reviewed 12/23/2011 12:00 AM Decadron 1 mg NDC#[id number] (Jr) Reviewed 12/23/2011 12:00 AM Depo-Medrol 80 mg NDC#[id number]-Zjgffkas Reviewed 02/09/2012 12:00 AM THER/PROPH/DIAG INJ SC/IM Reviewed 02/09/2012 12:00 AM Decadron 1 mg NDC#85610234988 (Jr) Reviewed 02/09/2012 12:00 AM Depo-Medrol 80 mg NDC#[id number]-Whevhqhz Reviewed 03/15/2012 12:00 AM N BLOCK INJ OCCIPITAL Reviewed 03/15/2012 12:00 AM Kenalog Tb-[address]-20 ANNA Reviewed 04/11/2012 12:00 AM COMPLETE CBC W/AUTO DIFF WBC Returned 04/11/2012 12:00 AM COMPREHEN METABOLIC PANEL Returned 04/11/2012 12:00 AM LIPID PANEL Returned 04/11/2012 12:00 AM ASSAY THYROID STIM HORMONE Returned 06/20/2012 12:00 AM THER/PROPH/DIAG INJ SC/IM Reviewed 06/20/2012 12:00 AM Decadron, Per 1 Mg ND# [address]-32 Reviewed 06/20/2012 12:00 AM Depo-Medrol, Per 80 Mg NDC#4737-2851-62 Reviewed 09/06/2012 12:00 AM N BLOCK INJ OCCIPITAL Reviewed 09/06/2012 12:00 AM Kenalog Qw-[address]-20 ANNA Reviewed 09/06/2012 12:00 AM X-RAY EXAM RIBS UNI 2 VIEWS Returned 09/26/2012 12:00 AM THER/PROPH/DIAG INJ SC/IM Reviewed 09/26/2012 12:00 AM Decadron, Per 1 Mg NDC# [address]-64 Reviewed 09/26/2012 12:00 AM Depo-Medrol, Per 80 Mg NDC#6655-4495-60 Reviewed 10/03/2012 12:00 AM URINALYSIS AUTO W/O SCOPE Reviewed 10/03/2012 12:00 AM THER/PROPH/DIAG INJ SC/IM Reviewed 10/03/2012 12:00 AM Toradol 60 Mg [facility]#8857-5439-85 Reviewed 10/03/2012 12:00 AM Phenergan, 25Mg ND#9522-1158-05 Reviewed 10/19/2012 12:00 AM N BLOCK INJ OCCIPITAL Reviewed 10/19/2012 12:00 AM Kenalog, Per 10 Mg ND#7234-8355-59 Reviewed 10/19/2012 12:00 AM Toradol 30 Mg ND#6194-7250-66 Reviewed 10/19/2012 12:00 AM THER/PROPH/DIAG INJ SC/IM Reviewed 10/31/2012 12:00 AM COMPLETE CBC W/AUTO DIFF WBC Returned 10/31/2012 12:00 AM COMPREHEN METABOLIC PANEL Returned 10/31/2012 12:00 AM LIPID PANEL Returned 11/03/2012 12:[address] THORAX W/O & W/DYE Returned 11/08/2012 12:00 AM N BLOCK INJ OCCIPITAL Reviewed 11/08/2012 12:00 AM Kenalog Eh-[address]-20 ANNA Reviewed 11/27/2012 12:00 AM COMPLETE CBC [...] Per 1 Mg [facility]# [address]-67 Reviewed 01/25/2013 12:00 AM Depo-Medrol, Per 80 Mg [facility]#3296-2110-38 Reviewed 01/26/2013 12:00 AM IMMUNOTHERAPY INJECTIONS Returned [...] Per 1 Mg [facility]# [address]-76 Reviewed 05/16/2013 12:00 AM Depo-Medrol, Per 80 Mg [facility]#8209-8105-37 Reviewed 05/31/2013 12:00 AM IMMUNOTHERAPY INJECTIONS Reviewed 06/08/2013 12:00 AM IMMUNOTHERAPY INJECTIONS Reviewed 06/14/2013 12:00 AM IMMUNOTHERAPY INJECTIONS Reviewed 06/28/2013 12:00 AM IMMUNOTHERAPY INJECTIONS Reviewed 07/12/2013 12:00 AM X-RAY EXAM RIBS UNI 2 VIEWS Returned 07/18/2013 12:00 AM Toradol 60 Mg [facility]#9631-4886-88 Reviewed 07/18/2013 12:00 AM THER/PROPH/DIAG INJ SC/IM Reviewed 08/23/2013 12:00 AM COMPLETE CBC W/AUTO DIFF WBC Reviewed 08/23/2013 12:00 AM COMPREHEN METABOLIC PANEL Reviewed 08/23/2013 12:00 AM LIPID PANEL Reviewed 08/31/2013 12:00 AM X-RAY EXAM OF LOWER LEG Returned 09/04/2013 12:00 AM IMMUNOTHERAPY INJECTIONS Reviewed 09/14/2013 12:00 AM THER/PROPH/DIAG INJ SC/IM Reviewed 09/14/2013 12:00 AM Decadron, Per 1 Mg [facility]# [address]-23 Reviewed 09/14/2013 12:00 AM Depo-Medrol, Per 80 Mg [facility]#4203-6675-83 Reviewed 09/20/2013 12:00 AM IMMUNOTHERAPY INJECTIONS Reviewed [...] INJ OCCIPITAL Reviewed 12/10/2009 12:00 AM Kenalog Tk-[address]-20 ANNA Reviewed 12/16/2009 12:00 AM HIV-1ANTIBODY Reviewed 12/16/2009 12:00 AM COMPLETE CBC W/AUTO DIFF WBC Reviewed 12/16/2009 12:00 AM METABOLIC PANEL TOTAL CA Reviewed 12/16/2009 12:00 AM Type and screen Reviewed 12/16/2009 12:00 AM PROTHROMBIN TIME Reviewed 12/16/2009 12:00 AM THROMBOPLASTIN TIME PARTIAL Reviewed 03/18/2010 12:00 AM DRAIN/INJ JOINT/BURSA W/O US Reviewed 03/18/2010 12:00 AM Kenalog Dq-[address]-20 ANNA Reviewed 11/21/2013 12:00 AM RADEX HAND MINIMUM 3 VIEWS Returned 06/03/2010 12:00 AM INJ TRIGGER POINT 1/2 MUSCL Reviewed 06/03/2010 12:00 AM Kenalog per 10Mg Im-[facility]#[address]-58(Niall) Reviewed 12/05/2013 12:00 AM COMPLETE CBC W/AUTO [...] Reviewed 07/23/2010 12:00 AM Kenalog per 10Mg Im-[facility]#[address]-68(Niall) Reviewed 2014 12:00 AM COMPLETE CBC W/AUTO [...] INJ OCCIPITAL Reviewed 10/01/2010 12:00 AM Kenalog Bh-[address]-20 ANNA Reviewed 07/25/2014 12:00 AM THER/PROPH/DIAG INJ [...] 0.60 mg/dLCALCIUM 10.90 mg/ dLeGFR >60 mL/min/1.73 [id number] 45.0 U/L 08/31/2013 10:54 AM GLUCOSE 255.0 [...] 0.40 mg/ dLCALCIUM 10.60 mg/dLeGFR >60 mL/min/1.73 [id number] 369.0 mg/ dLCHOLESTEROL 153.0 mg/dLHDL 26.0 mg/dLLDL [...] BILI 0.30 mg/dLCALCIUM 10.0 mg/dLeGFR >60 mL/min/1.73 [id number] YELLOW APPEARANCE CLEAR SPEC GRAV 1.010 pH 5.5 PROTEIN NEGATIVE GLUCOSE NEGATIVE KETONE NEGATIVE BILIRUBIN NEGATIVE BLOOD NEGATIVE NITRITE NEGATIVE LEUK SCREEN NEGATIVE Est Avg Glucose 134.1 mg/dLMICROALBUMIN UR <0.5 MG/DL 02/13/2015 4:38 PM RMSF, IgG, EIA Negative Dejuan Mtn Spotted Fever,IgM [...] 141 Influenza 04/24/2014 sanofi pasteur PMC Fluzone [id number] Intramuscular Left Upper Arm 02/27/2014 01/15/2014 141 Influenza 02/13/2015 sanofi pasteur PMC Fluzone [id number] Intramuscular Left Deltoid 02/13/2015 01/03/2015 140 History [...] 2015 1:36PM Cough May 20 2015 3:58PM Payers Insurance Name Company Name Plan Name Plan Number Policy Number Policy Group Number Start Date Medicare Part A Medicare Part A [id number] N/A [facility] RHC Comm [id number] N/A [facility] 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 - [facility] [id number] May [facility] Comm Plan of [id number] Wednesday, 2012 Medicare Part B Medicare [place] [id number] Monday, 2000 [place] [employer] [facility] [place] [employer] [id number] Tuesday, 2009 History of Encounters Visit Date Visit Type Provider 05/20/2015 Office visit Kaylynn Mendez APRN 05/08/2015 Office visit Heena Dumont MD 05/06/2015 Office visit Kaylynn Mendez APRN 04/29/2015 Office visit Kaylynn Mendez APRN 03/27/2015 Voided Brittni Yanez BLIND AIDE 03/21/2015 Office visit Heena Dumont MD 03/12/2015 Office visit Kaylynn Mendez APRN 02/26/2015 Office visit Brittni Yanez APRN 02/13/2015 Office visit Heena Dumont MD 01/15/2015 Office visit Brittni Yanez APRN 01/13/2015 Office visit Heena Dumont MD 01/08/[address] Carol Fowler MD 01/01/2015 Office visit Brittni Yanez APRN 12/13/2014 Office visit Heena Dumont MD 11/27/2014 Office visit Kaylynn Mendez BLIND AIDE 11/14/2014 Office visit Heena Dumont MD 10/18/2014 Office visit Heena Dumont MD 10/17/2014 [facility] John Hoskins MD 10/09/2014 Office visit Heena Dumont MD 09/25/2014 Office visit Heena Dumont MD 09/17/2014 Office visit Kaylynn Mendez BLIND AIDE 09/04/2014 Office visit Heena Dumont MD 08/28/2014 Office visit Kaylynn Mendez BLIND AIDE 08/23/2014 [facility] John Hoskins MD 08/01/2014 Office visit Kaylynn Mendez BLIND AIDE 07/29/2014 Office visit Heena Dumont MD 07/25/2014 Nurse visit Heena Dumont MD 07/17/2014 Office visit Kaylynn Mendez BLIND AIDE 07/11/2014 Office visit Heena Dumont MD 07/01/2014 Office visit Heena Dumont MD 06/25/2014 Office visit Kaylynn Mendez BLIND AIDE 06/12/2014 Office visit Kaylynn Mendez BLIND AIDE 06/06/2014 Office visit Kaylynn Mendez BLIND AIDE 05/27/2014 Office visit Heena Dumont MD 04/20/2014 Office visit Yesica Falcon BLIND AIDE 03/29/2014 Office visit Na Jones BLIND AIDE 03/15/2014 Office visit Heena Dumont MD 2014 Office visit Heena Dumont MD 2014 [facility] John Hoskins MD 02/27/2014 Nurse visit Heena Dumont MD 02/13/2014 Office visit Lena El BLIND AIDE 02/07/2014 Office visit Heena Dumont MD 02/03/2014 Office visit Na Jones BLIND AIDE 01/30/2014 Office visit Kaylynn Mendez BLIND AIDE 01/24/2014 Office visit Sundeep Russell BLIND AIDE 01/16/2014 Office visit Kaylynn Walker BLIND AIDE 01/10/2014 Nurse visit Kaylynn Mendez BLIND AIDE 01/08/2014 Office visit Kaylynn Walker BLIND AIDE 12/05/2013 Office visit Kaylynn Walker BLIND AIDE 11/21/2013 Office visit Kaylynn Walker BLIND AIDE 10/23/2013 Office visit Brittni Yanez BLIND AIDE 10/17/2013 Nurse visit Heena Dumont MD 10/12/2013 Office visit Kaylynn Mendez BLIND AIDE 10/02/2013 Office visit Heena Dumont MD 09/20/2013 Nurse visit Kaylynn Mendez BLIND AIDE 09/20/2013 Voided Heena Dumont MD 09/14/2013 Office visit Kaylynn Walker BLIND AIDE 09/05/2013 Office visit Sundeep Drew BLIND AIDE 09/04/2013 Nurse visit Kaylynn Walker BLIND AIDE 08/31/2013 Office visit Kaylynn Walker BLIND AIDE 08/23/2013 Office visit Heena Dumont MD 08/10/2013 Office visit Kaylynn Walker BLIND AIDE 07/25/2013 Office visit Kaylynn Walker BLIND AIDE 07/18/2013 Office visit Kaylynn Walker BLIND AIDE 07/12/2013 Office visit Kaylynn Walker BLIND AIDE 06/28/2013 Nurse visit Kaylynn Walker BLIND AIDE 06/14/2013 Nurse visit Kaylynn Walker BLIND AIDE 06/08/2013 Nurse visit Kaylynn Walker BLIND AIDE 05/31/2013 Nurse visit Chadd Norris DO 05/18/2013 Office visit Terese Davidson MD 05/16/2013 Office visit Kaylynn Walker BLIND AIDE 05/09/2013 Office visit Kaylynn Mendez BLIND AIDE 04/29/2013 [facility] John Hoskins MD 04/25/2013 Nurse visit Kaylynn Walker BLIND AIDE 04/17/2013 Office visit Kaylynn Walker BLIND AIDE 04/03/2013 Nurse visit Kaylynn Mendez BLIND AIDE 04/03/2013 Office visit Terese Davidson MD 03/28/2013 Office visit Sundeep Russell BLIND AIDE 03/21/2013 Office visit Kaylynn Mendez BLIND AIDE 03/20/2013 Office visit Terese Davidson MD 03/14/2013 Nurse visit Kaylynn Walker BLIND AIDE 03/05/2013 Nurse visit Kaylynn Mendez BLIND AIDE 02/19/2013 Office visit Terese Davidson MD 02/16/2013 Nurse visit Kaylynn Mendez BLIND AIDE 02/09/2013 Office visit Sundeep Russell BLIND AIDE 02/08/2013 Nurse visit Kaylynn Walker BLIND AIDE 02/01/2013 Nurse visit Kaylynn Walker BLIND AIDE 01/26/2013 Nurse visit Sabrina Mendez EXTRUDER OPERATOR 01/25/2013 Office visit Kaylynn Walker BLIND AIDE 01/22/2013 Office visit Yoan Castaneda MD 01/18/2013 Nurse visit Kaylynn Walker BLIND AIDE 01/11/2013 Nurse visit Kaylynn Walker BLIND AIDE 01/05/2013 Nurse visit Kaylynn Walker BLIND AIDE 12/29/2012 Office visit Kaylynn Walker BLIND AIDE 11/27/2012 Office visit Kaylynn Walker BLIND AIDE 11/08/2012 Office visit Odell Tierney MD 11/08/2012 Voided Odell Tierney MD 11/07/2012 Office visit Kaylynn Walker BLIND AIDE 10/31/2012 [facility] John Hoskins MD 10/31/2012 Office visit Kaylynn Mendez BLIND AIDE 10/19/2012 Office visit Genoveva Ayala BLIND AIDE 10/10/2012 Office visit Kaylynn Andrea BLIND AIDE 10/03/2012 Office visit Kaylynn Walker BLIND AIDE 09/26/2012 Office visit Kaylynn Walker BLIND AIDE 09/06/2012 Office visit Kaylynn Mendez BLIND AIDE 09/06/2012 Office visit Odell Tierney MD 08/31/2012 Voided Kaylynn Mendez BLIND AIDE 07/28/2012 Office visit Kaylynn Mendez BLIND AIDE 07/27/2012 Office visit David Joyner DO 07/20/2012 [facility] David Joyner DO 07/13/2012 [facility] David Joyner DO 07/11/2012 Office visit Kaylynn Mendez BLIND AIDE 06/27/2012 [facility] Odell Tierney MD 06/21/2012 Office visit David Joyner DO 06/21/2012 Office visit Odell Tierney MD 06/20/2012 Office visit Brittni Yanez BLIND AIDE 06/06/2012 Office visit Odell Tierney MD 05/03/2012 Office visit Kaylynn Mendez BLIND AIDE 04/28/2012 Office visit Brittni Yanez BLIND AIDE 04/11/2012 Office visit Kaylynn Mendez BLIND AIDE 04/06/2012 [facility] John Hoskins MD 03/30/2012 Office visit Kaylynn Mendez BLIND AIDE 03/15/2012 Office visit Kaylynn Mendez BLIND AIDE 03/15/2012 Office visit Odell Tierney MD 02/09/2012 Office visit Kaylynn Mendez BLIND AIDE 12/23/2011 Office visit Kaylynn Mendez BLIND AIDE 11/02/2011 Office visit Kaylynn Mendez BLIND AIDE 10/14/2011 Office visit Kaylynn Mendez BLIND AIDE 09/27/2011 Office visit Kaylynn Mendez BLIND AIDE 08/19/2011 [facility] John Hoskins MD 08/18/2011 [facility] John Hoskins MD 08/18/2011 Office visit Kaylynn Mendez BLIND AIDE 08/02/2011 Office visit Kaylynn Mendez BLIND AIDE 07/08/2011 Office visit Kaylynn Mendez BLIND AIDE 07/05/2011 Office visit Odell Tierney MD 06/15/2011 Office visit Kaylynn Menedz BLIND AIDE 05/14/2011 Office visit Kaylynn Mendez BLIND AIDE 05/11/2011 Office visit Odell Tierney MD 04/28/2011 Office visit Kaylynn Mendez BLIND AIDE 03/02/2011 Office visit Chadd Norris DO 02/17/2011 [...]
--- OUTSIDE RECORDS SUMMARY | 2018-05-09 16:10 | XMS REPORT ---
Author Author Heena Dumont Organization [facility] Address [address] [place] [id number] Care Team Providers Care It Manager Name Role Phone Heena Dumont PCP Allergies and Adverse Reactions Name Reaction Notes Aspirin Methadone Ultram Vicodin Plan of Treatment Planned Activity Comments Planned Date Planned Time Plan/Goal CT PELVIS W/O & W/DYE 11/03/2012 12:[address] ABDOMEN W/O & W/DYE 11/03/2012 12:00 AM LIVER IMAGING (3D) 11/14/2012 12:00 AM ASSAY OF LIPASE 11/27/2012 12:00 AM BLOOD SMEAR INTERPRETATION 11/27/2012 12:00 AM URINE CULTURE/COLONY COUNT 11/27/2012 12:00 AM BLOOD SMEAR INTERPRETATION 12/12/2013 12:00 AM CHEST X-RAY 2VW FRONTAL&LATL 06/12/2014 12:00 AM COMPLETE CBC W/AUTO DIFF WBC 10/01/2014 12:00 AM X-RAY EXAM OF ABDOMEN 09/25/2014 12:00 AM Medications Active Name Start Date Estimated Completion Date SIG Comments Latuda Oral tablet 40 mg take 1 tablet (40 mg) by oral route once daily with food (at least 350 calories) Nexium oral capsule,delayed release(DR/EC) 40 mg take 1 capsule (40 mg) by oral route once daily Pyridium oral tablet 200 mg 09/11/2013 TAKE 1 TABLET(S) BY MOUTH TID Vitamin D3 50,000 units then 2,000 units 09/19/2013 one tablet (50,000 units) once weekly for twelve weeks, then 2,000 units once daily for 30 days. Myrbetriq oral tablet extended release 24 hr 25 mg take 1 tablet (25 mg ) by oral route once daily swallowing whole with water. Do not crush, chew and/ or divide. amitriptyline oral tablet 25 mg 12/07/2013 TAKE 1-2 TABLETS BY ORAL ROUTE ONCE DAILY AT BEDTIME PRN lisinopril oral tablet 20 mg 01/02/2014 12/28/2014 take 1 tablet (20 mg) by oral route once daily for 90 days Janumet oral tablet 50-1,000 mg 01/08/2014 take 1 tablet by oral route 2 times per day with meals Zovirax topical cream 5 % 01/16/2014 apply to the affected area(s) by topical route 5 times per day montelukast oral tablet 10 mg 02/25/2014 TAKE 1 TABLET BY MOUTH EVERY EVENING meloxicam oral tablet 7.5 mg 03/07/2014 TAKE 1-2 TABLETS BY ORAL ROUTE QD PRN FOR BACK PAIN baclofen oral tablet 10 mg 03/07/2014 1 TABLET BY ORAL ROUTE 3 TIMES PER DAY PRN MUSCLE SPASM baclofen oral tablet 10 mg 06/09/2014 1 TABLET BY ORAL ROUTE 3 TIMES PER DAY PRN MUSCLE SPASM metoprolol succinate oral tablet extended release 24 hr 100 mg 07/02/2014 1 TABLET BY ORAL ROUTE 1 TIME PER DAY FOR 30 DAYS multivitamin oral capsule 07/02/2014 TAKE 1 CAPSULE BY ORAL ROUTE DAILY FOR 30 DAYS montelukast oral tablet 10 mg 07/02/2014 TAKE 1 TABLET BY MOUTH EVERY EVENING Sudafed 12 Hour oral tablet extended release 120 mg 07/17/2014 take 1 tablet (120 mg) by oral route every 12 hours Flonase nasal spray,suspension 50 mcg/actuation inhale 1 spray (50 mcg) in each nostril by intranasal route once daily azelastine nasal spray,non-aerosol 0.15 % (205.5 mcg) spray 2 sprays ( 411 mcg) in each nostril by intranasal route 2 times per day baclofen oral tablet 10 mg 07/31/2014 1 TABLET BY ORAL ROUTE 3 TIMES PER DAY PRN MUSCLE SPASM Glucose test strips and lancets 08/14/2014 08/09/2015 Test bid OneTouch Delica Lancets miscellaneous misc 33 gauge 08/21/2014 use as directed Calcium 500 + D oral tablet 500 mg(1,250mg) -200 unit take 1 tablet by oral route daily promethazine oral tablet 25 mg 10/07/2014 TAKE 1 TABLET BY MOUTH TWICE DAILY Cipro oral tablet 250 mg take 1 tablet by oral route BID x 2 weeks. Startes on 10-13-14 Spiriva with HandiHaler inhalation capsule, w/inhalation device 18 mcg inhale 1 capsule (18 mcg) by inhalation route once daily carbamazepine oral tablet extended release 12 hr 200 mg 10/18/2014 04/16/2015 take 1 tablet (200 mg) by oral route every 12 hours for 30 days baclofen oral tablet 10 mg 10/18/2014 02/15/2015 1/2 TABLET BY ORAL ROUTE 3 TIMES PER DAY PRN MUSCLE SPASM oxycodone oral tablet 5 mg 11/11/2014 12/11/2014 take 1 tablet by oral route every 12 hours for 30 days Name Start Date Expiration Date SIG Comments Zoloft Oral Tablet 100 mg take 1.5 tablets (150 mg) by oral route once daily dosage change Diclofenac Sodium Oral Tablet, Delayed Release (E.C.) 75 mg 11/17/20092009 take 1 tablet (75 mg) by oral route daily x 10 days Percocet Oral Tablet 5-325 mg 12/16/2009 12/23/2009 take 1 - 2 tablets by oral route every 4-6 hours as needed for 7 days Biaxin Oral Tablet 250 mg 01/29/2010 02/08/2010 take 1 tablet (250 mg) by oral route every 12 hours for 10 days Promethazine VC-Codeine Oral Syrup 5-6.25-10 mg/5 mL 01/29/2010 02/05/2010 take 5 milliliters by oral route every 6 hours as needed, not to exceed 30 mL in 24 hours for 7 days Medrol (Simon) Oral Tablets, Dose Pack 4 mg 01/29/2010 02/03/2010 take as directed for 5 days Amoxicillin Oral Tablet 500 mg 02/06/2010 02/16/2010 take 1 tablet (500 mg) by oral route 3 times per day for 10 days Nystatin Oral Suspension 100,000 unit/mL 02/06/2010 02/13/2010 take 5 milliliters (500,000 unit) by oral route 4 times per day for 7 days baclofen Oral Tablet 20 mg 12/01/2010 12/31/2010 TAKE 1 TABLET BY MOUTH THREE TIMES DAILY methocarbamol Oral Tablet 500 mg 12/01/2010 12/31/2010 TAKE 1 TABLET BY MOUTH TWICE DAILY NEEDED FOR PAIN prednisone Oral Tablet 10 mg 02/17/2011 02/22/2011 take 1 tablet (10 mg) by oral route once daily for 5 days Cymbalta Oral Capsule, Delayed Release(E.C.) 60 mg 03/02/2011 04/01/2011 take 1 capsule (60 mg) by oral route once daily for 30 days Zithromax Z-Simon Oral Tablet 250 mg 04/28/2011 05/03/2011 take 2 tablets (500 mg) by oral route once daily for 1 day then 1 tablet (250 mg) by oral route once daily for 4 days Voltaren Topical Gel 1 % 05/11/2011 07/10/2011 apply 2 gram to the affected area(s) by topical route 4 times per day for 30 days Bentyl Oral Capsule 10 mg 05/14/2011 06/13/2011 take 1 capsule (10 mg) by oral route 3 times per day for 30 days Cipro Oral Tablet 500 mg 06/15/2011 06/22/2011 take 1 tablet (500 mg) by oral route every 12 hours for 7 days Zithromax Z-Simon Oral Tablet 250 mg 08/02/2011 08/07/2011 take 2 tablets (500 mg ) by oral route once daily for 1 day then 1 tablet (250 mg) by oral route once daily for 4 days Geodon Oral Capsule 60 mg 09/10/2011 10/10/2011 take 2 capsules by oral route once a day (in the evening) for 30 days Crestor Oral Tablet 20 mg 12/09/2011 12/09/2011 take 1 tablet (20 mg) by oral route once daily Zithromax Z-Simon Oral tablet 250 mg 02/09/2012 02/14/2012 take 2 tablets (500 mg) by oral route once daily for 1 day then 1 tablet (250 mg) by oral route once daily for 4 days meloxicam Oral tablet 15 mg 02/19/2012 05/19/2012 TAKE 1 TABLET BY MOUTH EVERY DAY FOR PAIN Zoloft Oral tablet 100 mg 03/30/2012 04/29/2012 take 1.5 tablets (150 mg) by oral route once daily for 30 days Geodon Oral capsule 80 mg 03/30/2012 04/29/2012 take 1 capsule by oral route BID Trilipix Oral capsule,delayed release(DR/EC) 135 mg 04/24/2012 07/23/2012 take 1 capsule (135 mg) by oral route once daily for 30 days Savella Oral tablet 50 mg 05/26/2012 08/24/2012 take 1 tablet (50 mg) by oral route 2 times per day for 30 days Zithromax Z-Simon Oral tablet 250 mg 06/20/2012 06/25/2012 take 2 tablets (500 mg) by oral route once daily for 1 day then 1 tablet (250 mg) by oral route once daily for 4 days Ambien CR Oral tablet,ext release multiphase 12.5 mg 07/24/2012 09/22/2012 take 1 tablet (12.5 mg) by oral route once daily at bedtime for 30 days Augmentin Oral tablet 875-125 mg 10/11/2012 10/18/2012 take 1 tablet by oral route every 12 hours for 7 days Cipro Oral tablet 500 mg 12/04/2012 12/11/2012 take 1 tablet (500 mg) by oral route every 12 hours for 7 days promethazine Oral tablet 25 mg 12/29/2012 01/28/2013 take 1 tablet (25 mg) by oral route every 6 hours as needed Toprol XL Oral tablet extended release 24 hr 100 mg 01/18/2013 04/18/2013 take 1 tablet (100 mg) by oral route once daily for 30 days Zithromax Z-Simon Oral tablet 250 mg 01/25/2013 01/30/2013 take 2 tablets (500 mg ) by oral route once daily for 1 day then 1 tablet (250 mg) by oral route once daily for 4 days tizanidine Oral tablet 4 mg 11/15/2012 12/07/2012 TAKE 1/2 TO 1 TABLET BY MOUTH TWICE DAILY NEEDED FOR PAIN Cipro Oral tablet 500 mg 03/28/2013 04/04/2013 take 1 tablet (500 mg) by oral route 2 times per day for 7 days tizanidine oral tablet 4 mg 01/17/2012 11/27/2012 Cipro oral tablet 500 mg 04/17/2013 04/24/2013 take 1 tablet (500 mg) by oral route 2 times per day for 7 days Zithromax Z-Simon oral tablet 250 mg 05/09/2013 05/14/2013 take 2 tablets ( 500 mg) by oral route once daily for 1 day then 1 tablet (250 mg) by oral route once daily for 4 days Voltaren topical gel 1 % 06/04/2013 10/02/2013 apply 2 gram to the affected area (s) by topical route 4 times per day for 30 days Levaquin oral tablet 750 mg 07/16/2013 07/23/2013 take 1 tablet (750 mg) by oral route once daily for 7 days Savella Oral tablet 50 mg 09/10/2013 03/09/2014 take 1 tablet (50 mg) by oral route 2 for 30 days Zithromax Z-Simon oral tablet 250 mg 09/14/2013 09/19/2013 take 2 tablets (500 mg) by oral route once daily for 1 day then 1 tablet (250 mg) by oral route once daily for 4 days Tessalon Perles oral capsule 100 mg 10/02/2013 11/01/2013 take 1 capsule by oral route once a day (at bedtime) for 30 days Cipro oral tablet 500 mg 10/15/2013 10/22/2013 take 1 tablet (500 mg) by oral route every 12 hours for 7 days Zithromax Z-Simon oral tablet 250 mg 10/23/2013 10/28/2013 take 2 tablets (500 mg ) by oral route once daily for 1 day then 1 tablet (250 mg) by oral route once daily for 4 days ibuprofen oral tablet 600 mg 11/16/2013 12/16/2013 take 1 tablet (600 mg) by oral route every 6 hours as needed with food for 30 days amitriptyline oral tablet 50 mg 12/07/2013 03/07/2014 take 1tablets by oral route once daily at bedtime PRN azithromycin oral tablet 250 mg 01/24/2014 01/29/2014 take 2 tablets (500 mg) by oral route once daily for 1 day then 1 tablet (250 mg) by oral route once daily for 4 days hydrocodone-acetaminophen oral tablet 7.5-325 mg 02/03/2014 02/06/2014 take 1 tablet by oral route every 6 hours as needed for pain for 3 days meloxicam oral tablet 7.5 mg 02/07/2014 03/09/2014 take 1-2 tablets by oral route QD PRN for back pain Estrace vaginal cream 0.01 % (0.1 mg/gram) 02/13/2014 02/14/2014 apply 1 applicatorful by vaginal route 3XW metoprolol succinate oral tablet extended release 24 hr 100 mg 02/26/201407/26 1 TABLET BY ORAL ROUTE 1 TIME PER DAY for 30 days Lipitor oral tablet 40 mg 2014 07/02/2014 take 1 tablet (40 mg) by oral route once daily at bedtime for 30 days multivitamin oral capsule 2014 06/02/2014 take 1 capsule by oral route daily for 30 days capsaicin topical cream 0.075 % 03/15/2014 06/13/2014 apply to the affected area(s) by topical route 3 times per day for 30 days Savella oral tablet 50 mg 03/18/2014 TAKE 1 TABLET (50 MG) BY ORAL ROUTE 2 FOR 30 DAYS bacitracin topical ointment 500 unit/gram 04/02/2014 04/09/2014 apply to affected area by external route 2 times a day for 7 days cane miscellaneous device 05/20/2014 08/27/2014 use as directed for 99 days [place] oral tablet 5-325 mg 06/17/2014 06/27/2014 take 1 tablet by oral route every 6 hours as needed for pain for 10 days promethazine oral tablet 25 mg 07/01/2014 09/29/2014 take 1 tablet (25 mg) by oral route 2 times per day for 30 days Ambien CR oral tablet,ext release multiphase 12.5 mg 07/08/2014 10/06/2014 take 1 tablet (12.5 mg) by oral route once daily at bedtime for 30 days naproxen oral tablet 500 mg 07/12/2014 07/17/2014 take 1 tablet by oral route bid for 3 days then taper down 0.5 tab bid for 1 day and 0.5 tab once daily for 1 day. metronidazole oral tablet 500 mg 08/28/2014 09/04/2014 take 1 tablet by oral route 2 times a day for 7 days Bactrim oral tablet 400-80 mg take 1 tablet by oral route BID x 7 days. Finished on 10-12-14 Flagyl oral tablet 500 mg take 1 tablet by oral route BID x 14 days. Started 10-04-14 Tessalon Perles oral capsule 100 mg 10/09/2014 10/16/2014 take 1 capsule by oral route 2 times a day for 7 days Discontinued Name Start Date Discontinued Date SIG Comments Elmiron Oral Capsule 100 mg 11/10/2009 take 1 capsule (100 mg) by oral route 3 times per day with water, 1 hour before or 2 hours after a meal Lyrica Oral Capsule 150 mg 11/17/2010 1 tab TID no longer taking Chlorzoxazone Oral Tablet 500 mg 11/27/2012 take 1 tablet (500 mg) by oral route 3 times per day Imitrex Oral Tablet 100 mg 11/27/2012 take 1 tablet (100 mg) by oral route once with fluids as early as possible after the onset of a migraine attack;may repeat after 2 hours if headache returns, not to exceed 200mg in 24hrs Pseudoephedrine HCl Oral Tablet 60 mg 11/10/2009 take 1 tablet (60 mg) by oral route every 6 hours as needed Diphenhydramine HCl Oral Capsule 50 mg 12/02/2010 take 1 capsule (50 mg) by oral route every 6 hours as needed Chlorpheniramine Maleate Oral Tablet 4 mg 03/18/2010 take 1 tablet (4 mg) by oral route every 6 hours as needed Meloxicam Oral Tablet 15 mg 11/17/2009 take 1 tablet (15 mg) by oral route once daily Dr. Patterson Pyridium Oral Tablet 200 mg 03/18/2010 take 1 tablet (200 mg) by oral route [address] Jin Bactrim DS Oral 160-800 mg Oral Tablet 11/06/2009 11/17/2009 Dr. Hammond Tylenol-Codeine #3 Oral Tablet 300-30 mg 12/10/2009 12/10/2009 take 1 tablet by oral route every 4-6 hours as needed Pt. states that it doesn't work for her. Elmiron Oral Capsule 100 mg 03/18/2010 take 1 capsule (100 mg) by oral route 3 times per day with water, 1 hour before or 2 hours after a meal Motrin Oral Tablet 800 mg 12/16/2009 03/18/2010 take 1 tablet by oral route every 8 hours as needed Darvocet-N 50 Oral Tablet 50-325 mg 12/16/2009 03/18/2010 take 1 tablet by oral route every 4-6 hours as needed for pain Proventil HFA Inhalation Aerosol Inhaler 90 mcg/Actuation 01/29/20102009 inhale 2 puffs by inhalation route every 4-6 hours as needed for 21 days Diflucan Oral Tablet 150 mg 02/06/2010 02/06/2010 take 1 tablet (150 mg) by oral route once Estradiol Transdermal Patch Weekly 0.1 mg/24 hr 02/16/2010 06/18/2010 apply 1 patch by transdermal route once weekly for 30 days Progesterone/Triest/Testosterone 200 mg/1.25mg/0.75m 06/18/2010 11/17/2010 Apply 1ml to wrist daily stopped, cannot afford Cymbalta 03/02/2011 dose change Simvastatin 11/02/2011 Bactroban Topical Ointment 2 % 11/17/2010 08/18/2011 apply a small amount to the affected area by topical route 3 times per day Augmentin Oral Tablet 875-125 mg 11/17/2010 12/02/2010 take 1 tablet by oral route every 12 hours Tessalon Oral Capsule 200 mg 11/17/2010 11/24/2010 take 1 capsule (200 mg) by oral route 3 times per day as needed promethazine-codeine Oral Syrup 6.25-10 mg/5 mL 02/17/2011 03/02/2011 take 5 milliliters by oral route every 6 hours as needed, not to exceed 30 mL in 24 hours Chantix Starting Month Simon Oral Tablets, Dose Pack 0.5(11)-1(3X14) mg 201111/02/2011 take as directed Vicodin Oral Tablet 5-500 mg 03/30/2012 Lyrica Oral Capsule 150 mg 10/05/2011 11/02/2011 take 1 capsule (150 mg) by oral route three times a day for 30 days Amitiza Oral Capsule 8 mcg 10/14/2011 11/02/2011 take 1 capsule (8 mcg) by oral route 2 times per day with food and water for 30 days Savella Oral Tablet 12.5 mg 01/11/2012 03/30/2012 take 1 tablets (12.5 mg) by oral route 2 times per day Ambien CR Oral tablet,ext release multiphase 12.5 mg 03/13/2012 03/30/2012 TAKE 1 tablet (12.5 mg) by oral route at bedtime as needed for 30 days amitriptyline Oral tablet 25 mg 04/11/2012 04/24/2012 take 2 tablet (50 mg) by oral route once daily at bedtime Dexilant Oral cap, multiphase delay release 60 mg 04/11/2012 05/18/2013 take 1 capsule (60 mg) by oral route once daily Chantix Starting Month Box Oral tablets,dose pack 0.5 (11)-1 (42) mg 201106/06/2012 take as directed Cipro Oral tablet 500 mg 04/18/2012 04/24/2012 take 1 tablet (500 mg) by oral route every 12 hours for 7 days Ambien Oral tablet 10 mg 05/03/2012 take 1 tablet (10 mg) by oral route once daily at bedtime for 30 days Ambien CR Oral tablet,ext release multiphase 12.5 mg 04/28/2012 05/03/2012 take 1 tablet (12.5 mg) by oral route once daily at bedtime ondansetron Oral tablet,disintegrating 4 mg 04/28/2012 05/02/2012 dissolve 1 tablet by oral route QID PRN need prior auth will change medication Restoril Oral capsule 30 mg 05/03/2012 06/06/2012 take 1 capsule (30 mg) by oral route once daily at bedtime as needed simvastatin Oral tablet 40 mg 08/23/2013 take 1 tablet (40 mg) by oral route once daily in the evening changed to crestor Flonase Nasal [place], Suspension 50 mcg/actuation 06/20/2012 10/31/2012 inhale 1 spray (50 mcg) in each nostril by intranasal route once daily Restoril Oral capsule 15 mg 06/28/2012 07/11/2012 take 1 capsule (15 mg) by oral route once daily at bedtime as needed Chantix Starting Month Box Oral tablets,dose pack 0.5 11)-1 42) mg 201210/31/2012 take as directed Ambien Oral tablet 10 mg 07/11/2012 07/24/2012 take 1 tablet (10 mg) by oral route once daily at bedtime for 30 days Please do not fill unless patient brings back her old script of Restoril. cetirizine Oral tablet 10 mg 07/28/2012 11/27/2012 take 1 tablet (10 mg) by oral route once daily Sudafed 12 Hour Oral tablet extended release 120 mg 07/28/2012 10/31/2012 take 1 tablet (120 mg) by oral route every 12 hours phenazopyridine Oral tablet 200 mg 10/03/2012 10/31/2012 take 1 tablet (200 mg) by oral route 3 times per day after meals Proventil HFA Inhalation HFA Aerosol Inhaler 90 mcg/actuation 10/10/20122012 inhale 1 - 2 puffs by inhalation route every 6 hours as needed Geodon Oral capsule 80 mg 01/22/2013 take 1 capsule (80 mg) by oral route 2 times per day with food naproxen Oral tablet,delayed release (DR/EC) 500 mg 12/29/2012 05/18/2013 take 1 tablet by oral route 2 times a day Saphris Sublingual tablet, sublingual 10 mg 03/28/2013 place 1 tablet (10 mg) under the tongue and allow to dissolve by sublingual route 2 times per day albuterol sulfate Inhalation Solution for Nebulization 2.5 mg /3 mL (0.083 %) 01/25/2013 08/23/2013 inhale 3 milliliters (2.5 mg) by nebulization route 3 times per day Compazine 10mg 01/31/2013 08/23/2013 1 tab every 6 hours as needed amoxicillin Oral capsule 500 mg 02/09/2013 02/19/2013 take 1 capsule by oral route 3 times a day for 5 days cyclobenzaprine Oral tablet 10 mg 12/29/2012 08/23/2013 take 1 tablet (10 mg) by oral route 2 times per day as needed Zofran Oral tablet 4 mg 03/21/2013 05/18/2013 take 1 tablet by mouth q6 hours for nausea Lunesta oral tablet 2 mg 06/15/2012 05/18/2013 take 1 tablet (2 mg) by oral route daily baclofen oral 07/29/2014 promethazine-codeine oral syrup 6.25-10 mg/5 mL 05/18/2013 take 5 milliliters by oral route every 6 hours as needed, not to exceed 30 mL in 24 hours Tesrama Perles oral capsule 100 mg 04/30/2013 05/18/2013 take 1 capsule ( 100 mg) by oral route 3 times per day Bactrim DS oral tablet 800-160 mg 05/18/2013 Augmentin oral tablet 875-125 mg 05/16/2013 05/18/2013 take 1 tablet by oral route every 12 hours for 7 days amoxicillin oral capsule 500 mg 07/12/2013 take 1 capsule (500 mg) by oral route every 12 hours Celebrex oral capsule 200 mg 05/18/2013 05/31/2013 take 1 capsule (200 mg) by oral route once daily as needed for 30 days Celebrex oral capsule 200 mg 05/18/2013 05/31/2013 take 1 capsule (200 mg) by oral route once daily as needed for 30 days insurance did not cover it Celebrex oral capsule 200 mg 07/10/2013 07/26/2013 take 1 capsule (200 mg) by oral route once daily for 30 days She is already on ibuprofen and vicoprofen by other providers doxycycline hyclate oral 08/23/2013 changed to diclofenac bid Tylenol-Codeine #3 oral tablet 300-30 mg 07/18/2013 07/19/2013 take 1 tablet by oral route every 4 hours as needed ibuprofen oral tablet 800 mg 07/18/2013 10/02/2013 take 1 tablet by oral route 3 times a day as needed Vicoprofen oral tablet 7.5-200 mg 07/19/2013 10/02/2013 take 1 tablet by oral route every 6 hours as needed for pain not to exceed 5 tablets in 24hrs prednisone oral 08/23/2013 albuterol sulfate inhalation HFA aerosol inhaler 90 mcg/actuation 07/25/2013 inhale 1 - 2 puffs by inhalation route every 4 hours as needed Symbicort inhalation HFA aerosol inhaler 80-4.5 mcg/actuation 07/25/20132013 inhale 2 puffs by inhalation route 2 times per day in the morning and evening promethazine-codeine oral syrup 6.25-10 mg/5 mL 07/25/2013 09/14/2013 take 5 milliliters by oral route every 4-6 hours as needed, not to exceed 30 mL in 24 hours Crestor oral tablet 40 mg 10/02/2013 take 1 tablet (40 mg) by oral route once daily for 30 days diclofenac sodium oral 10/02/2013 Toprol XL oral 02/07/2014 naproxen oral tablet 500 mg 09/06/2013 10/02/2013 take 1 tablet by oral route 2 times a day for 30 days promethazine oral tablet 25 mg 09/17/2013 11/21/2013 Take 1 tab every 4-6 hours as needed Xanax oral tablet 1 mg 10/12/2013 12/05/2013 take 1 tablet daily at HS loratadine oral tablet 10 mg 10/23/2013 12/05/2013 take 1 tablet (10 mg) by oral route once daily as needed Medrol (Simon) oral tablets,dose pack 4 mg 10/23/2013 12/05/2013 take as directed Pyridium oral tablet 200 mg 10/29/2013 02/07/2014 TAKE 1 TABLET(S) BY MOUTH TID diclofenac sodium oral tablet,delayed release (DR/EC) 75 mg 11/02/20132013 take 1 tablet (75 mg) by oral route 2 times per day for 30 days amitriptyline oral tablet 25 mg 12/10/2013 02/07/2014 TAKE 1-2 TABLETS BY ORAL ROUTE ONCE DAILY AT BEDTIME PRN Sudafed 12 Hour oral tablet extended release 120 mg 01/30/2014 02/07/2014 take 1 tablet (120 mg) by oral route every 12 hours Singulair oral tablet 10 mg 01/30/2014 07/01/2014 take 1 tablet (10 mg) by oral route once daily in the evening Levaquin oral tablet 500 mg 02/03/2014 02/07/2014 take 1 tablet by oral route once a day for 5 days Nexium oral capsule,delayed release(DR/EC) 40 mg 02/04/2014 05/27/2014 1 CAPSULE BY ORAL ROUTE 1 TIME PER DAY Elmiron oral capsule 100 mg 02/07/2014 06/25/2014 take 1 capsule (100 mg) by oral route 3 times per day with water, 1 hour before or 2 hours after a meal for 30 days States its not working Ambien CR oral tablet,ext release multiphase 6.25 mg 02/25/2014 03/01/2014 take 1 tablet (6.25 mg) by oral route once daily at bedtime for 30 days per kaylynn yaima crouch lidocaine topical adhesive patch,medicated 5 %(700 mg/patch) 03/15/201405/27 apply 1 patch by transdermal route once daily (May wear up to 12hours.) for 30 days QNASL nasal HFA aerosol inhaler 80 mcg/actuation 07/29/2014 spray 2 sprays ( 160 mcg) in each nostril by intranasal route once daily Janumet oral tablet 50-1,000 mg 04/28/2014 06/25/2014 TAKE 1 TABLET BY MOUTH TWICE DAILY WITH MEALS Nicoderm CQ transdermal patch 24 hour 14 mg/24 hr 06/03/2014 07/29/2014 apply 1 patch (14 mg) by transdermal route once daily and remove at bedtime for 30 days Symbicort inhalation HFA aerosol inhaler 160-4.5 mcg/actuation 06/12/20142014 inhale 1 puff by inhalation route 2 times a day albuterol sulfate inhalation solution for nebulization 2.5 mg /3 mL (0.083 %) 06/12/2014 09/25/2014 inhale 3 milliliters (2.5 mg) by nebulization route 4 times per day Medrol (Simon) oral tablets,dose pack 4 mg 06/12/2014 07/01/2014 take as directed nicotine transdermal patch 24 hour 21 mg/24 hr 06/12/2014 07/29/2014 apply 1 patch (21 mg) by transdermal route once daily prednisone oral tablet 20 mg 07/02/2014 07/29/2014 take 60mg x2 days then 40mg x2 days then 20mg x4 days Breo Ellipta inhalation blister with device 100-25 mcg/dose 07/29/2014 inhale 1 puff by inhalation route once daily at the same time each day amitriptyline oral tablet 25 mg 07/01/2014 09/25/2014 take 1 tablet (25 mg) by oral route once daily at bedtime for 30 days meloxicam oral tablet 7.5 mg 07/02/2014 10/09/2014 TAKE 1-2 TABLETS BY ORAL ROUTE QD PRN FOR BACK PAIN Zithromax Z-Simon oral tablet 250 mg 07/29/2014 Symbicort inhalation HFA aerosol inhaler 160-4.5 mcg/actuation 07/17/201409/12 inhale 1 puff by inhalation route 2 times per day in the morning and evening WelChol oral powder in packet 3.75 gram 07/29/2014 09/12/2014 take 1 packet ( 3.75 gram) dissolved in 120 to 240ml of water; stir and drink by oral route once daily with a meal for 30 days ondansetron oral tablet,disintegrating 4 mg 08/28/2014 09/04/2014 take one tab every 4 hours as needed for nausea Invokana oral tablet 100 mg 10/18/2014 take 1 tablet (100 mg) by oral route once daily before the first meal of the day magnesium oxide oral capsule 400 mg 10/18/2014 take 1 capsule by oral route daily Advair Diskus inhalation blister with device 100-50 mcg/dose 09/25/2014 inhale 1 puff by inhalation route 2 times per day in the morning and evening approximately 12 hours apart for 30 days Cholestyramine Light oral powder 4 gram 09/25/2014 take 1 scoop (4 gram) dissolved in 2 to 6 ounces of water or noncarbonated beverage by oral route 1 times per day metformin oral tablet 500 mg 10/18/2014 take 4 tablets by oral route Dooley's Yeast oral tablet 500 mg (7.5 gr) 10/09/2014 take 2 tablets by oral route daily Problem List Description Status Onset Anemia [...] HC BMI BSA BMI Percentile O2 Sat(%) 11/14/2014 3:57:00 PM 112 mmHg 72 mmHg 90 bpm 99 F 156.5 lbs 63 in 27.72 kg/m2 1.78 m2 96 % 10/18/2014 11:46:00 AM 120 mmHg 62 mmHg 100 bpm 16 rpm 97.5 F 157 lbs 93 % 10/09/2014 1:38:00 PM 122 mmHg 76 mmHg 89 bpm 98.2 F 157.125 lbs 63 in 27.8332 kg/m 1.78 m2 98 % 09/25/2014 2:42:00 PM 110 mmHg 78 mmHg 102 bpm 98.7 F 158.5 lbs 63 in 28.08 kg/m2 1.7877 m 95 % 09/17/2014 11:09:00 AM 122 mmHg 66 mmHg 100 bpm 18 rpm 97.8 F 156.125 lbs 63 in 27.656 kg/m 1.77 m2 98 % 09/04/2014 2:06:00 PM 120 mmHg 70 mmHg 105 bpm 97.4 F 157.5 lbs 63 in 27.90 kg/m2 1.782 m 96 % 08/28/2014 3:02:00 PM 128 mmHg 66 mmHg 104 bpm 18 rpm 98.1 F 158.125 lbs 63 in 28.0103 kg/m 1.79 m2 98 % 08/01/2014 3:24:00 PM 132 mmHg 66 mmHg 86 bpm 18 rpm 98.7 F 161 lbs 63 in 28.52 kg/m2 1.8017 m 98 % 07/29/2014 3:37:00 PM 126 mmHg 78 mmHg 90 bpm 97.8 F 165.25 lbs 63 in 29.2724 kg/m 1.83 m2 93 % 07/25/2014 2:03:00 PM 108 mmHg 76 mmHg 99 bpm 99 F 163.375 lbs 63 in 28.94 kg/m2 1.8149 m 95 % 07/17/2014 10:02:00 AM 132 mmHg 66 mmHg 100 bpm 18 rpm 97.9 F 167.125 lbs 63 in 29.6046 kg/m 1.84 m2 100 % 07/11/2014 4:07:00 PM 135 mmHg 85 mmHg 124 bpm 18 rpm 98.3 F 164.375 lbs 63 in 29.12 kg/m2 1.8205 m 100 % 07/01/2014 3:45:00 PM 126 mmHg 70 mmHg 91 bpm 97.6 F 167.125 lbs 63 in 29.6046 kg/m 1.84 m2 98 % 06/25/2014 11:04:00 AM 120 mmHg 70 mmHg 100 bpm 20 rpm 97 F 157.125 lbs 63 in 27.83 kg/m2 1.7799 m 97 % 06/12/2014 10:49:00 AM 110 mmHg 80 mmHg 120 bpm 20 rpm 97.6 F 160.25 lbs 63 in 28.3867 kg/m 1.80 m2 99 % 06/06/2014 10:57:00 AM 100 mmHg 68 mmHg 112 bpm 18 rpm 97.6 F 156 lbs 63 in 27.63 kg/m2 1.7735 m 98 % 05/27/2014 2:18:00 PM [...] rpm 96.3 F 180.125 lbs 64 in 30.92 kg/m2 1.9208 m 98 % 08/23/2013 1:45:00 PM 106 mmHg 70 mmHg 103 bpm 20 rpm 97.5 F 182 lbs 64 in 31.2399 kg/m 1.93 m2 98 % 08/10/2013 11:06:00 AM 132 mmHg 68 mmHg 114 bpm 18 rpm 98.1 F 164.5 lbs 64 in 28.24 kg/m2 1.8356 m 95 % 07/25/2013 4:01:00 PM 122 mmHg 64 mmHg 97 bpm 18 rpm 97.1 F 181 lbs 64 in 31.0683 kg/m 1.93 m2 98 % 07/18/2013 3:52:00 PM 134 mmHg 78 mmHg 122 bpm 24 rpm 98.6 F 184.5 lbs 64 in 31.67 kg/m2 1.944 m 96 % 07/12/2013 3:49:00 PM 128 mmHg 68 mmHg 112 bpm 18 rpm 97.9 F 183.437 lbs 64 in 31.4867 kg/m 1.94 m2 97 % 05/18/2013 8:36:00 AM 132 mmHg 78 mmHg 78 bpm 22 rpm 97.4 F 188 lbs 64 in 32.27 kg/m2 1.9623 m 05/16/2013 1:49:00 PM 132 mmHg 64 mmHg 93 bpm 18 rpm 98.3 F 189.125 lbs 64 in 32.4629 kg/m 1.97 m2 97 % 05/09/2013 2:56:00 PM 136 mmHg 72 mmHg 111 bpm 18 rpm 98.5 F 186 lbs 64 in 31.93 kg/m2 1.9518 m 100 % 04/17/2013 11:34:00 AM 126 mmHg 78 mmHg 104 bpm 18 rpm 98.2 F 188.375 lbs 64 in 32.3342 kg/m 1.96 m2 96 % 04/03/2013 2:24:00 PM 120 mmHg 80 mmHg 89 bpm 16 rpm 97.3 F 189 lbs 64 in 32.44 kg/m2 1.9675 m 03/28/2013 7:31:00 PM 136 mmHg 68 mmHg 98 bpm 18 rpm 98.2 F 188 lbs 64 in 32.2698 kg/m 1.96 m2 97 % 03/21/2013 1:58:00 PM 136 mmHg 74 mmHg 86 bpm 18 rpm 98.7 F 188.25 lbs 64 in 32.31 kg/m2 1.9636 m 03/20/2013 1:41:00 PM 132 mmHg 84 mmHg 98 bpm 20 rpm 97.4 F 189 lbs 64 in 32.4414 kg/m 1.97 m2 02/19/2013 2:40:00 PM 112 mmHg [...] F 189.25 lbs 64 in 32.48 kg/m2 1.97 m2 96 % 11/08/2012 3:13:00 PM 132 mmHg 90 mmHg 88 bpm 16 rpm 96.8 F 194 lbs 64 in 33.2997 kg/m 1.9934 m 11/07/2012 1:50:00 PM 138 mmHg 74 mmHg 98 bpm 18 rpm 98.9 F 194.125 lbs 64 in 33.32 kg/m2 1.99 m2 10/31/2012 1:39:00 PM 142 mmHg 90 mmHg 76 bpm 18 rpm 97.8 F 196.125 lbs 64 in 33.6644 kg/m 2.0043 m 10/19/2012 3:47:00 PM 150 mmHg 90 mmHg 88 bpm 14 rpm 98.2 F 191 lbs 64 in 32.78 kg/m2 1.98 m2 10/10/2012 10:45:00 AM 130 mmHg 74 mmHg 100 bpm 18 rpm 98.9 F 191.5 lbs 64 in 32.8706 kg/m 1.9805 m 98 % 10/03/2012 10:46:00 AM 138 mmHg 78 mmHg 68 bpm 18 rpm 98.7 F 194.25 lbs 64 in 33.34 kg/m2 1.99 m2 09/26/2012 3:28:00 PM 134 mmHg 68 mmHg 72 bpm 18 rpm 98.4 F 193.375 lbs 64 in 33.1924 kg/m 1.9902 m 09/06/2012 2:13:00 PM 136 mmHg 76 mmHg 72 bpm 18 rpm 97.7 F 197.25 lbs 64 in 33.86 kg/m2 2.01 m2 09/06/2012 7:56:00 AM 128 mmHg 88 mmHg 104 bpm 18 rpm 96.2 F 197.25 lbs 64 in 33.8575 kg/m 2.01 m 08/31/2012 2:53:00 PM 132 mmHg 68 mmHg 68 bpm 18 rpm 98.1 F 194.125 lbs 64 in 33.32 kg/m2 1.99 m2 07/28/2012 10:22:00 AM 126 mmHg 72 mmHg [...] of Procedures Date Ordered Description Order Status 04/28/2011 12:00 AM THER/PROPH/DIAG INJ SC/IM Reviewed 05/11/2011 12:00 AM N BLOCK INJ OCCIPITAL Reviewed 06/15/2011 12:00 AM COMPLETE CBC W/AUTO DIFF WBC Returned 06/15/2011 12:00 AM COMPREHEN METABOLIC PANEL Returned 07/08/2011 12:00 AM THER/PROPH/DIAG INJ SC/IM Reviewed 08/02/2011 12:00 AM THER/PROPH/DIAG INJ SC/IM Reviewed 09/27/2011 12:00 AM THER/PROPH/DIAG INJ SC/IM Reviewed 10/14/2011 12:00 AM X-RAY EXAM OF ABDOMEN Returned 10/14/2011 12:00 AM URINALYSIS AUTO W/O SCOPE Reviewed 12/23/2011 12:00 AM THER/PROPH/DIAG INJ SC/IM Reviewed 02/09/2012 12:00 AM THER/PROPH/DIAG INJ SC/IM Reviewed 03/15/2012 12:00 AM N BLOCK INJ OCCIPITAL Reviewed 04/11/2012 12:00 AM COMPLETE CBC W/AUTO DIFF WBC Returned 04/11/2012 12:00 AM COMPREHEN METABOLIC PANEL Returned 04/11/2012 12:00 AM LIPID PANEL Returned 04/11/2012 12:00 AM ASSAY THYROID STIM HORMONE Returned 06/20/2012 12:00 AM THER/PROPH/DIAG INJ SC/IM Reviewed 09/06/2012 12:00 AM N BLOCK INJ OCCIPITAL Reviewed 09/06/2012 12:00 AM X-RAY EXAM RIBS UNI 2 VIEWS Returned 09/26/2012 12:00 AM THER/PROPH/DIAG INJ SC/IM Reviewed 10/03/2012 12:00 AM URINALYSIS AUTO W/O SCOPE Reviewed 10/03/2012 12:00 AM THER/PROPH/DIAG INJ SC/IM Reviewed 10/19/2012 12:00 AM N BLOCK INJ OCCIPITAL Reviewed 10/19/2012 12:00 AM THER/PROPH/DIAG INJ SC/IM Reviewed 10/31/2012 12:00 AM COMPLETE CBC W/AUTO DIFF WBC Returned 10/31/2012 12:00 AM COMPREHEN METABOLIC PANEL Returned 10/31/2012 12:00 AM LIPID PANEL Returned 11/03/2012 12:[address] THORAX W/O & W/DYE Returned 11/08/2012 12:00 AM N BLOCK INJ OCCIPITAL Reviewed 11/27/2012 12:00 AM COMPLETE CBC W/AUTO [...] AM IMMUNOTHERAPY INJECTIONS Reviewed 01/22/2013 12:00 AM HIV-1ANTIBODY Returned 01/25/2013 12:00 AM THER/PROPH/DIAG INJ SC/IM Reviewed 01/26/2013 12:00 AM IMMUNOTHERAPY INJECTIONS Returned 02/01/2013 12:00 AM IMMUNOTHERAPY INJECTIONS Reviewed 02/08/2013 12:00 AM IMMUNOTHERAPY INJECTIONS Reviewed 02/16/2013 12:00 AM IMMUNOTHERAPY INJECTIONS Reviewed 03/14/2013 12:00 AM IMMUNOTHERAPY INJECTIONS Reviewed 03/21/2013 12:00 AM COMPLETE CBC W/AUTO [...] 05/16/2013 12:00 AM THER/PROPH/DIAG INJ SC/IM Reviewed 05/31/2013 12:00 AM IMMUNOTHERAPY INJECTIONS Reviewed 06/08/2013 12:00 AM IMMUNOTHERAPY INJECTIONS Reviewed 06/14/2013 12:00 AM IMMUNOTHERAPY INJECTIONS Reviewed 06/28/2013 12:00 AM IMMUNOTHERAPY INJECTIONS Reviewed 07/12/2013 12:00 AM X-RAY EXAM RIBS UNI 2 VIEWS Returned 07/18/2013 12:00 AM THER/PROPH/DIAG INJ SC/IM Reviewed 08/23/2013 12:00 AM COMPLETE CBC W/AUTO DIFF WBC Reviewed 08/23/2013 12:00 AM COMPREHEN METABOLIC PANEL Reviewed 08/23/2013 12:00 AM LIPID PANEL Reviewed 08/31/2013 12:00 AM X-RAY EXAM OF LOWER LEG Returned 09/04/2013 12:00 AM IMMUNOTHERAPY INJECTIONS Reviewed 09/14/2013 12:00 AM THER/PROPH/DIAG INJ SC/IM Reviewed 09/20/2013 12:00 AM IMMUNOTHERAPY INJECTIONS Reviewed [...] 12:00 AM N BLOCK INJ OCCIPITAL Reviewed 12/16/2009 12:00 AM HIV-1ANTIBODY Reviewed 12/16/2009 12:00 AM COMPLETE CBC W/AUTO DIFF WBC Reviewed 12/16/2009 12:00 AM METABOLIC PANEL TOTAL CA Reviewed 12/16/2009 12:00 AM Type and screen Reviewed 12/16/2009 12:00 AM PROTHROMBIN TIME Reviewed 12/16/2009 12:00 AM THROMBOPLASTIN TIME PARTIAL Reviewed 03/18/2010 12:00 AM DRAIN/INJ JOINT/BURSA W/O US Reviewed 06/03/2010 12:00 AM INJ TRIGGER POINT 1/2 MUSCL Reviewed 12/05/2013 12:00 AM COMPLETE CBC W/AUTO [...] AM INJ TRIGGER POINT 1/2 MUSCL Reviewed 02/07/2014 12:00 AM VIT D 1 25-DIHYDROXY Returned 02/13/2014 12:00 AM VIRUS INOCULATION TISSUE Returned 02/25/2014 12:00 AM COMPLETE CBC W/AUTO DIFF WBC Returned 02/25/2014 12:00 AM COMPREHEN METABOLIC PANEL Returned 02/25/2014 12:00 AM METABOLIC PANEL TOTAL CA Returned 02/25/2014 12:00 AM LIPID PANEL Returned 02/25/2014 12:00 AM GLYCOSYLATED HEMOGLOBIN TEST Returned 07/23/2010 12:00 AM INJ TRIGGER POINT 1/2 MUSCL Reviewed 2014 12:00 AM COMPLETE CBC W/AUTO DIFF WBC Returned 2014 12:00 AM COMPREHEN METABOLIC PANEL Returned 2014 12:00 AM ASSAY OF MAGNESIUM Returned 2014 12:00 AM ELECTROCARDIOGRAM COMPLETE Reviewed 08/26/2010 12:00 AM URINALYSIS NONAUTO W/SCOPE [...] 12:00 AM N BLOCK INJ OCCIPITAL Reviewed 07/25/2014 12:00 AM THER/PROPH/DIAG INJ SC/IM Reviewed 07/01/2014 12:00 AM COMPLETE CBC W/AUTO [...] 12:00 AM CYTOPATH TBS C/V MANUAL Reviewed 10/18/2014 12:00 AM COMPLETE CBC W/AUTO DIFF WBC Returned 10/18/2014 12:00 AM COMPREHEN METABOLIC PANEL Returned 10/18/2014 12:00 AM GLYCOSYLATED HEMOGLOBIN TEST Returned 10/18/2014 12:00 AM URINALYSIS AUTO W/SCOPE Returned 10/18/2014 12:00 AM MICROALBUMIN QUANTITATIVE Returned Results Summary Data and Description Results 11/11/2009 [...] 0.13 03/21/2013 2:27 PM HGB A1C 6.10 % 03/21/2013 2:37 PM WBC 16.2 RBC 4.14 [...] 0.60 mg/dLCALCIUM 10.90 mg/ dLeGFR >60 mL/min/1.73 [id number] 45.0 U/L 08/31/2013 10:54 AM GLUCOSE 255.0 [...] mg/dLCALCIUM 10.10 mg/dLeGFR 60 HGB A1C 12.90 %TSH 0.30 uIU/mLPROGESTERONE 0.10 ng/mLESTRADIOL 15.0 pg/mLFSH 70.20 [...] mg/dLCALCIUM 10.80 mg/dLeGFR 60 HGB A1C 6.0 % 2014 4:42 PM WBC 16.9 RBC 4.22 [...] 0.40 mg/ dLCALCIUM 10.60 mg/dLeGFR >60 mL/min/1.73 [id number] 369.0 mg/ dLCHOLESTEROL 153.0 mg/dLHDL 26.0 mg/dLLDL [...] %VITAMIN B12 352.0 pg/mLVITAMIN D >96.0 ng/mL 09/25/2014 3:38 PM WBC 19.7 RBC 4.70 HGB 14.50 g/dLHCT 42.20 %MCV 90.0 fLMCH 30.90 pgMCHC 34.40 g/dLRDW CV 13.0 %MPV 11.50 fLPLT 392 LIPASE 46.0 U/LGLUCOSE 116.0 mg/dLSODIUM 134.0 mmol/LPOTASSIUM 4.60 mmol/LCHLORIDE 98.0 mmol/LCO2 26.0 mmol/LBUN 10.0 mg/dLCREATININE 0.80 mg/dLSGOT/AST 49.0 IU/LSGPT/ALT 74.0 IU/ LALK PHOS 95.0 IU/LTOTAL PROTEIN 8.50 g/dLALBUMIN 4.0 g/dLTOTAL BILI 0.30 mg/ dLCALCIUM 10.70 mg/dLeGFR >60 mL/min/1.73 m2 10/02/2014 4:01 PM GLUCOSE 124.0 mg/dLSODIUM 135.0 [...] BILI 0.30 mg/dLCALCIUM 10.0 mg/dLeGFR >60 mL/min/1.73 [id number] YELLOW APPEARANCE CLEAR SPEC GRAV 1.010 pH 5.5 PROTEIN NEGATIVE GLUCOSE NEGATIVE KETONE NEGATIVE BILIRUBIN NEGATIVE BLOOD NEGATIVE NITRITE NEGATIVE LEUK SCREEN NEGATIVE HGB A1C 6.30 %MICROALBUMIN UR <0.5 MG/DL History Of Immunizations Name Date Admin Mfg Name Mfg Code Trade Name Lot# Route Inj Vis Given Vis Pub CVX Influenza 03/30/2011 Not Entered NE Not Entered Not Entered Not Entered 03/31/2011 05/30/2015 141 Influenza 04/24/2014 sanofi pasteur PMC Fluzone [id number] Intramuscular Left Upper Arm 02/27/2014 01/15/2014 141 History of Past Illness Name Date [...] 2014 4:01PM Seizure Oct 18 2014 11:53AM Payers Insurance Name Company Name Plan Name Plan Number Policy Number Policy Group Number Start Date Medicare Part A Medicare Part A [id number] N/A [facility] Community Plan [facility] RHC Comm [id number] N/A [place] [employer] - R[employer] [place] [employer] - RHC [id number] [facility] Comm Plan of [id number] Wednesday, 2012 Medicare Part B Medicare [place] [id number] Monday, 2000 [place] [employer] [place] [employer] [id number] Tuesday, 2009 History of Encounters Visit Date Visit Type Provider 11/14/2014 Office visit Heena Dumont MD 10/18/2014 Office visit Heena Dumont MD 10/09/2014 Office visit Heena Dumont MD 09/25/2014 Office visit Heena Dumont MD 09/17/2014 Office visit Kaylynn Mendez [employer] COMM[employer]ER 09/04/2014 Office visit Heena Dumont MD 08/28/2014 Office visit Kaylynn Mendez [employer] COMMISSIONER 08/01/2014 Office visit Kaylynn Mendez [employer] COMMISSIONER 07/29/2014 Office visit Heena Dumont MD 07/25/2014 Nurse visit Heena Dumont MD 07/17/2014 Office visit Kaylynn Mendez [employer] COMM[employer]ER 07/11/2014 Office visit Heena Dumont MD 07/01/2014 Office visit Heena Dumont MD 06/25/2014 Office visit Kaylynn Mendez [employer] COMM[employer]IONER 06/12/2014 Office visit Kaylynn Mendez TAX COMMISSIONER 06/06/2014 Office visit Kaylynn Mendez [employer]AX COMMISSIONER 05/27/2014 Office visit Heena Dumont MD 04/20/2014 Office visit Yesica Falcon [employer] COMM[employer]ER 03/29/2014 Office visit Na Jones [employer] COMMISSIONER 03/15/2014 Office visit Heena Dumont MD 2014 Office visit Heena Dumont MD 2014 [facility] Eliseo Hoskins MD 02/27/2014 Nurse visit Heena Dumont MD 02/13/2014 Office visit Lena El TAX COMMISSIONER 02/07/2014 Office visit Heena Dumont MD 02/03/2014 Office visit Na Jones TAX COMMISSIONER 01/30/2014 Office visit Kaylynn Mendez TAX COMMISSIONER 01/24/2014 Office visit Sundeep Russell [employer]AX COMMISSIONER 01/16/2014 Office visit Kaylynn Walker [employer]AX COMMISSIONER 01/10/2014 Nurse visit Kaylynn Walker TAX COMMISSIONER 01/08/2014 Office visit Kaylynn Walker TAX COMMISSIONER 12/05/2013 Office visit Kaylynn Walker TAX COMMISSIONER 11/21/2013 Office visit Kaylynn Walker TAX COMMISSIONER 10/23/2013 Office visit Brittni Yanez TAX COMMISSIONER 10/17/2013 Nurse visit Heena Dumont MD 10/12/2013 Office visit Kaylynn Mendez [employer] COMMISSIONER 10/02/2013 Office visit Heena Dumont MD 09/20/2013 Voided Heena Dumont MD 09/20/2013 Nurse visit Kaylynn Walker [employer] COMM[employer]ER 09/14/2013 Office visit Kaylynn Walker TAX COMMISSIONER 09/05/2013 Office visit Sundeep Russell [employer]AX COMMISSIONER 09/04/2013 Nurse visit Kaylynn Mendez TAX COMMISSIONER 08/31/2013 Office visit Kaylynn Walker TAX COMMISSIONER 08/23/2013 Office visit Heena Dumont MD 08/10/2013 Office visit Kaylynn Walker TAX COMMISSIONER 07/25/2013 Office visit Kaylynn Walker TAX COMMISSIONER 07/18/2013 Office visit Kaylynn Walker TAX COMMISSIONER 07/12/2013 Office visit Kaylynn Walker TAX COMMISSIONER 06/28/2013 Nurse visit Kaylynn Walker [employer]AX COMMISSIONER 06/14/2013 Nurse visit Kaylynn Walker [employer]AX COMMISSIONER 06/08/2013 Nurse visit Kaylynn Walker TAX COMMISSIONER 05/31/2013 Nurse visit Chadd Norris DO 05/18/2013 Office visit Terese Davidson MD 05/16/2013 Office visit Kaylynn Mendez TAX COMMISSIONER 05/09/2013 Office visit Kaylynn Mendez TAX COMMISSIONER 04/29/2013 [facility] John Hoskins MD 04/25/2013 Nurse visit Kaylynn Mendez TAX COMMISSIONER 04/17/2013 Office visit Kaylynn Mendez TAX COMMISSIONER 04/03/2013 Office visit Terese Davidson MD 04/03/2013 Nurse visit Kaylynn Mendez TAX COMMISSIONER 03/28/2013 Office visit Sundeep Russell [employer]AX COMMISSIONER 03/21/2013 Office visit Kaylynn Mendez TAX COMMISSIONER 03/20/2013 Office visit Terese Davidson MD 03/14/2013 Nurse visit Kaylynn Mendez [employer] COMMISSIONER 03/05/2013 Nurse visit Kaylynn Mendez TAX COMMISSIONER 02/19/2013 Office visit Terese Davidson MD 02/16/2013 Nurse visit Kaylynn Andrea [employer] COMM[employer]IONER 02/09/2013 Office visit Sundeep Russell TAX COMMISSIONER 02/08/2013 Nurse visit Kaylynn Andrea TAX COMMISSIONER 02/01/2013 Nurse visit Kaylynn Andrea TAX COMMISSIONER 01/26/2013 Nurse visit Sabrina Andrea [employer] DIRECTOR 01/25/2013 Office visit Kaylynn Andrea [employer]AX COMMISSIONER 01/22/2013 Office visit Yoan Castaneda MD 01/18/2013 Nurse visit Kaylynn Andrea TAX COMMISSIONER 01/11/2013 Nurse visit Kaylynn Walker TAX COMMISSIONER 01/05/2013 Nurse visit Kaylynn Walker TAX COMMISSIONER 12/29/2012 Office visit Kaylynn Andrea TAX COMMISSIONER 11/27/2012 Office visit Kaylynn Mendez TAX COMMISSIONER 11/08/2012 Voided Odell Tierney MD 11/08/2012 Office visit Odell Tierney MD 11/07/2012 Office visit Kaylynn Mendez TAX COMMISSIONER 10/31/2012 Office visit Kaylynn Mendez TAX COMMISSIONER 10/31/2012 [facility] John Hoskins MD 10/19/2012 Office visit Genoveva Ayala TAX COMMISSIONER 10/10/2012 Office visit Kaylynn Mendez TAX COMMISSIONER 10/03/2012 Office visit Kaylynn Mendez TAX COMMISSIONER 09/26/2012 Office visit Kaylynn Mendez TAX COMMISSIONER 09/06/2012 Office visit Odell Tierney MD 09/06/2012 Office visit Kaylynn Mendez TAX COMMISSIONER 08/31/2012 Voided Kaylynn Mendez TAX COMMISSIONER 07/28/2012 Office visit Kaylynn Mendez TAX COMMISSIONER 07/27/2012 Office visit David Joyner DO 07/20/2012 [employer] DO 07/13/2012 [employer] DO 07/11/2012 Office visit Kaylynn Mendez TAX COMMISSIONER 06/27/2012 [facility] Odell Tierney MD 06/21/2012 Office visit Odell Tierney MD 06/21/2012 Office visit David Joyner DO 06/20/2012 Office visit Brittni Yanez TAX COMMISSIONER 06/06/2012 Office visit Odell Tierney MD 05/03/2012 Office visit Kaylynn Mendez TAX COMMISSIONER 04/28/2012 Office visit Brittni Yanez TAX COMMISSIONER 04/11/2012 Office visit Kaylynn Mendez TAX COMMISSIONER 04/06/2012 [facility] John Hoskins MD 03/30/2012 Office visit Kaylynn Mendez TAX COMMISSIONER 03/15/2012 Office visit Odell Tierney MD 03/15/2012 Office visit Kaylynn Mendez TAX COMMISSIONER 02/09/2012 Office visit Kaylynn Mendez TAX COMMISSIONER 12/23/2011 Office visit Kaylynn Mendez TAX COMMISSIONER 11/02/2011 Office visit Kaylynn Mendez TAX COMMISSIONER 10/14/2011 Office visit Kaylynn Mendez TAX COMMISSIONER 09/27/2011 Office visit Kaylynn Mendez TAX COMMISSIONER 08/19/2011 [facility] John Hoskins MD 08/18/2011 Office visit Kaylynn Mendez TAX COMMISSIONER 08/18/2011 [facility] John Hoskins MD 08/02/2011 Office visit Kaylynn Mendez TAX COMMISSIONER 07/08/2011 Office visit Kaylynn Mendez TAX COMMISSIONER 07/05/2011 Office visit Odell Tierney MD 06/15/2011 Office visit Kaylynn Mendez TAX COMMISSIONER 05/14/2011 Office visit Kaylynn Mendez [employer]AX COMMISSIONER 05/11/2011 Office visit Odell Tierney MD 04/28/2011 Office visit Kaylynn Mendez [employer]AX COMMISSIONER 03/02/2011 Office visit Chadd Norris DO 02/17/2011 Office visit Chadd Norris DO 01/19/2011 Office visit Odell Tierney MD 12/16/2010 Office visit Odell Tierney MD 12/02/2010 Office visit Yoan Castaenda MD 11/24/2010 Office visit Chadd Norris DO [...] 02/06/2010 Office visit Vickie STEIN 02/04/2010 Surgery Yaon Castaneda MD 01/29/2010 Office visit Hillary RITCHIE 12/23/2009 Surgery Yoan Castaneda MD 12/16/2009 Surgery Yoan Castaneda MD 12/10/2009 Office visit Odell Tierney MD 11/26/2009 Office visit Yoan Castaneda MD 11/17/2009 Office visit Odell Tierney MD 11/10/2009 Office visit Chadd Norris DO
--- OUTSIDE RECORDS SUMMARY | 2018-05-09 16:15 | XMS REPORT ---
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 Sidecar Lancets 33 gauge miscellaneous misc 01/21/2016 use as directed BriefMe miscellaneous strip 01/21/2016 07/19/2016 Test 2x daily, [...] EVERY DAY hydrocodone-acetaminophen 10-325 mg oral tablet 05/03/2016 06/02/2016 take 1 tablet by oral route every 8 hours for 30 days nicotine 21 mg/24 hr transdermal patch 24 hour 05/13/2016 05/27/2016 apply 1 patch (21 mg) by transdermal route once daily and remove at bedtime for 14 days Name Start Date Expiration Date SIG [...] 08/27/2014 use as directed for 99 days Clay 5-325 mg oral tablet 06/17/2014 06/27/2014 take [...] a day as needed for 30 days wzxlkglk-rbneynuiv-VP 3.5-10,000-1 mg/mL-unit/mL-% otic drops,suspension 201401/08/2015 instill 4 [...] times a day for 30 days Zithromax Z-Ismon 250 mg oral tablet 05/20/2015 05/25/2015 take [...] 2 times per day for 5 days Discontinued Name Start Date Discontinued Date [...] HC BMI BSA BMI Percentile O2 Sat(%) 05/13/2016 3:09:00 PM 104 mmHg 68 mmHg [...] Reviewed 04/28/2011 12:00 AM Decadron 1 mg ND#[id number] (Jr) Reviewed 04/28/2011 12:00 AM Depo-Medrol 80 mg ND#[id number]-Sxukmptv Reviewed 09/02/2015 12:00 AM Toradol 60 Mg NDC#8189-8927-76 Reviewed 09/02/2015 12:00 AM Phenergan, Up to 50 Mg RHC Medicaid Reviewed 09/16/2015 12:00 AM Toradol 60 Mg ND#1050-8054-08 Reviewed 09/16/2015 12:00 AM Phenergan Up to 50 mg RHC Medicare Reviewed 05/11/2011 12:00 AM N BLOCK INJ OCCIPITAL Reviewed 05/11/2011 12:00 AM Kenalog Fi-[address]-20 ANNA Reviewed 11/13/2015 12:00 AM ASSAY OF [...] Reviewed 07/08/2011 12:00 AM Toradol,15mg [facility]#[id number], [place] Reviewed 07/08/2011 12:00 AM Phenergan 50 Mg Im [facility] 5124-5212-68 [place] Reviewed 01/21/2016 12:00 AM ECG MONIT/REPRT UP TO 48 HRS Returned 08/02/2011 12:00 AM THER/PROPH/DIAG INJ SC/IM Reviewed 08/02/2011 12:00 AM Decadron 1 mg [facility]#[id number] (Jr) Reviewed 08/02/2011 12:00 AM Depo-Medrol 80 mg [facility]#[id number]-Amahcneq Reviewed 03/05/2016 12:00 AM COMPLETE CBC W/AUTO DIFF WBC Returned 03/05/2016 12:00 AM STREP A ASSAY W/OPTIC Returned 03/05/2016 12:00 AM C-REACTIVE PROTEIN Returned 03/18/2016 12:00 AM [facility] MEDICARE - flu vaccine administration Reviewed 03/18/2016 12:00 AM INFLUENZA VACCINE QUADRIVALENT 3 YRS PLUS IM Reviewed 04/15/2016 12:00 AM Screening mammography, bilateral Reviewed 04/16/2016 12:00 AM Consult/Referral Reviewed 05/03/2016 12:00 AM METABOLIC PANEL TOTAL CA Returned 05/03/2016 12:00 AM COMPLETE CBC W/AUTO DIFF WBC Returned 09/27/2011 12:00 AM THER/PROPH/DIAG INJ SC/IM Reviewed 09/27/2011 12:00 AM Depo-Medrol 80 mg [facility]#[id number]-Qobcgftb Reviewed 10/14/2011 12:00 AM X-RAY EXAM OF ABDOMEN Reviewed 10/14/2011 12:00 AM URINALYSIS AUTO W/O SCOPE Reviewed 12/23/2011 12:00 AM THER/PROPH/DIAG INJ SC/IM Reviewed 12/23/2011 12:00 AM Decadron 1 mg NDC#[id number] (Jr) Reviewed 12/23/2011 12:00 AM Depo-Medrol 80 mg NDC#[id number]-Zqcthlml Reviewed 02/09/2012 12:00 AM THER/PROPH/DIAG INJ SC/IM Reviewed 02/09/2012 12:00 AM Decadron 1 mg NDC#25171364150 (Jr) Reviewed 02/09/2012 12:00 AM Depo-Medrol 80 mg NDC#[id number]-Vsjjllwb Reviewed 03/15/2012 12:00 AM N BLOCK INJ OCCIPITAL Reviewed 03/15/2012 12:00 AM Kenalog Nc-[address]-20 ANNA Reviewed 04/11/2012 12:00 AM COMPLETE CBC W/AUTO DIFF WBC Reviewed 04/11/2012 12:00 AM COMPREHEN METABOLIC PANEL Reviewed 04/11/2012 12:00 AM LIPID PANEL Reviewed 04/11/2012 12:00 AM ASSAY THYROID STIM HORMONE Reviewed 06/20/2012 12:00 AM THER/PROPH/DIAG INJ SC/IM Reviewed 06/20/2012 12:00 AM Decadron, Per 1 Mg ND# [address]-50 Reviewed 06/20/2012 12:00 AM Depo-Medrol, Per 80 Mg ND#3728-2960-27 Reviewed 09/06/2012 12:00 AM N BLOCK INJ OCCIPITAL Reviewed 09/06/2012 12:00 AM Kenalog Xn-[address]-20 ANNA Reviewed 09/06/2012 12:00 AM X-RAY EXAM RIBS UNI 2 VIEWS Reviewed 09/26/2012 12:00 AM THER/PROPH/DIAG INJ SC/IM Reviewed 09/26/2012 12:00 AM Decadron, Per 1 Mg NDC# [address]-54 Reviewed 09/26/2012 12:00 AM Depo-Medrol, Per 80 Mg NDC#9872-9873-52 Reviewed 10/03/2012 12:00 AM URINALYSIS AUTO W/O SCOPE Reviewed 10/03/2012 12:00 AM THER/PROPH/DIAG INJ SC/IM Reviewed 10/03/2012 12:00 AM Toradol 60 Mg NDC#5702-4919-35 Reviewed 10/03/2012 12:00 AM Phenergan, 25Mg NDC#4672-3583-58 Reviewed 10/19/2012 12:00 AM N BLOCK INJ OCCIPITAL Reviewed 10/19/2012 12:00 AM Kenalog, Per 10 Mg [facility]#0555-4648-48 Reviewed 10/19/2012 12:00 AM Toradol 30 Mg [facility]#3140-3496-38 Reviewed 10/19/2012 12:00 AM THER/PROPH/DIAG INJ SC/IM Reviewed 10/31/2012 12:00 AM COMPLETE CBC W/AUTO DIFF WBC Reviewed 10/31/2012 12:00 AM COMPREHEN METABOLIC PANEL Reviewed 10/31/2012 12:00 AM LIPID PANEL Reviewed 11/03/2012 12:[address] THORAX W/O & W/DYE Reviewed 11/08/2012 12:00 AM N BLOCK INJ OCCIPITAL Reviewed 11/08/2012 12:00 AM Kenalog Fg-[address]-20 ANNA Reviewed 11/27/2012 12:00 AM COMPLETE CBC [...] AM Decadron, Per 1 Mg [facility]# [address]-69 Reviewed 01/25/2013 12:00 AM Depo-Medrol, Per 80 Mg [facility]#0240-2202-98 Reviewed 01/26/2013 12:00 AM IMMUNOTHERAPY INJECTIONS Reviewed [...] AM Decadron, Per 1 Mg [facility]# [address]-58 Reviewed 05/16/2013 12:00 AM Depo-Medrol, Per 80 Mg [facility]#1549-4131-86 Reviewed 05/31/2013 12:00 AM IMMUNOTHERAPY INJECTIONS Reviewed 06/08/2013 12:00 AM IMMUNOTHERAPY INJECTIONS Reviewed 06/14/2013 12:00 AM IMMUNOTHERAPY INJECTIONS Reviewed 06/28/2013 12:00 AM IMMUNOTHERAPY INJECTIONS Reviewed 07/12/2013 12:00 AM X-RAY EXAM RIBS UNI 2 VIEWS Reviewed 07/18/2013 12:00 AM Toradol 60 Mg [facility]#3365-1714-55 Reviewed 07/18/2013 12:00 AM THER/PROPH/DIAG INJ SC/IM Reviewed 08/23/2013 12:00 AM COMPLETE CBC W/AUTO DIFF WBC Reviewed 08/23/2013 12:00 AM COMPREHEN METABOLIC PANEL Reviewed 08/23/2013 12:00 AM LIPID PANEL Reviewed 08/31/2013 12:00 AM X-RAY EXAM OF LOWER LEG Reviewed 09/04/2013 12:00 AM IMMUNOTHERAPY INJECTIONS Reviewed 09/14/2013 12:00 AM THER/PROPH/DIAG INJ SC/IM Reviewed 09/14/2013 12:00 AM Decadron, Per 1 Mg [facility]# [address]-33 Reviewed 09/14/2013 12:00 AM Depo-Medrol, Per 80 Mg [facility]#2153-2368-90 Reviewed 09/20/2013 12:00 AM IMMUNOTHERAPY INJECTIONS Reviewed [...] INJ OCCIPITAL Reviewed 12/10/2009 12:00 AM Kenalog Mv-[address]-20 ANNA Reviewed 12/16/2009 12:00 AM HIV-1ANTIBODY Reviewed 12/16/2009 12:00 AM COMPLETE CBC W/AUTO DIFF WBC Reviewed 12/16/2009 12:00 AM METABOLIC PANEL TOTAL CA Reviewed 12/16/2009 12:00 AM Type and screen Reviewed 12/16/2009 12:00 AM PROTHROMBIN TIME Reviewed 12/16/2009 12:00 AM THROMBOPLASTIN TIME PARTIAL Reviewed 03/18/2010 12:00 AM DRAIN/INJ JOINT/BURSA W/O US Reviewed 03/18/2010 12:00 AM Kenalog On-[address]-20 ANNA Reviewed 11/21/2013 12:00 AM RADEX HAND MINIMUM 3 VIEWS Reviewed 06/03/2010 12:00 AM INJ TRIGGER POINT 1/2 MUSCL Reviewed 06/03/2010 12:00 AM Kenalog per 10Mg -[facility]#[address]-34(Niall) Reviewed 12/05/2013 12:00 AM COMPLETE CBC W/AUTO [...] Reviewed 07/23/2010 12:00 AM Kenalog per 10Mg Im-[facility]#[address]-34(Niall) Reviewed 2014 12:00 AM COMPLETE CBC W/AUTO [...] INJ OCCIPITAL Reviewed 10/01/2010 12:00 AM Kenalog Wz-[address]-20 ANNA Reviewed 07/25/2014 12:00 AM THER/PROPH/DIAG INJ [...] Cortisol, MS 0.017 Salivary Cortisol, MS <0.010 History Of Immunizations Name Date Admin Mfg Name Mfg Code Trade Name Lot# Route Inj Vis Given Vis Pub CVX Influenza 03/30/2011 Not Entered NE Not Entered Not Entered Not Entered 03/31/2011 05/30/2016 141 Influenza 04/24/2014 sanofi pasteur PMC Fluzone [id number] Intramuscular Left Upper Arm 02/27/2014 01/15/2014 141 Influenza 02/13/2015 sanofi pasteur PMC Fluzone [id number] Intramuscular Left Deltoid 02/13/2015 01/03/2015 140 Tdap 06/06/2015 GlaxoSmithKline SKB BOOSTRIX [id number] Intramuscular Left Deltoid 06/06/2015 07/23/2014 115 Influenza 03/18/2016 sanofi pasteur PMC Fluzone [id number] Intramuscular Left Deltoid 03/17/2016 01/03/2015 141 History [...] Media, Acute b 2014 10:04AM Asthma b 18 2014 10:04AM Headache Feb 2014 4:46PM Fall as cause of accidental injury in home as place of occurrence, initial encounter Feb 2014 4:46PM Ankle instability, left Feb 2014 11:30AM Ankle pain b 2014 11:30AM History of fall b 2014 11:30AM Headache b 2014 11:30AM Osteoporosis [...] 3:12PM Tobacco dependence May 13 2016 3:12PM Payers Insurance Name Company Name Plan Name Plan Number Policy Number Policy Group Number Start Date Medicare Part A Medicare RHC [id number] N/A [facility] - RHC - Community Plan of [facility] RHC Comm [id number] N/A Medicare Part A Medicare - Lab/Xray [id number] N/A Medicare Part B Medicare Of [place] [id number] Monday, February 28, 2000 [place] [facility] [employer] [facility] [place] [facility] [employer] [facility] [id number] Tuesday, November 10, 2009 Medicare Part A Medicare Part A [id number] N/A [place] Informatics Coordinator Prog - [facility] - RHC [id number] May [facility] Comm Plan of [id number] Wednesday, May 30, 2012 History of Encounters Visit Date Visit Type Provider 05/13/2016 Office visit Heena Dumont MD 05/03/2016 Office visit Heena Dumont MD 04/26/2016 Office visit Kaylynn Mendez LPN CARE MANAGER 04/14/2016 Office visit Heena Dumont MD 04/13/2016 Office visit Kaylynn Mendez LPN CARE MANAGER 04/02/2016 Office visit Lena El LPN CARE MANAGER 04/02/2016 Office visit Heena Dumont MD 03/26/2016 Office visit Yesica Falcon LPN CARE MANAGER 03/17/2016 Office visit Heena Dumont MD 03/05/2016 Office visit Kaylynn Mendez LPN CARE MANAGER 02/16/2016 Office visit Heena Dumont MD 02/14/2016 Office visit Na Jones LPN CARE MANAGER 01/16/2016 Office visit Heena Dumont MD 12/16/2015 Office visit Heena Dumont MD 11/24/2015 Office visit Kaylynn Mendez LPN CARE MANAGER 11/18/2015 Office visit Heena Dumont MD 11/03/2015 Office visit Sundeep Russell LPN CARE MANAGER 10/20/2015 Office visit Kaylynn Walker LPN CARE MANAGER 09/23/2015 Office visit Kaylynn Walker LPN CARE MANAGER 09/16/[address] Pepe Figueroa MD 09/02/2015 Office visit Kaylynn Walker LPN CARE MANAGER 09/01/2015 Office visit Kaylynn Walker LPN CARE MANAGER 07/30/2015 Office visit Heena Dumont MD 07/15/2015 Office visit Kaylynn Walker LPN CARE MANAGER 07/04/2015 Office visit Heena Dumont MD 06/06/2015 Office visit Heena Dumont MD 06/06/2015 Office visit Kaylynn Walker LPN CARE MANAGER 06/02/2015 Office visit Kaylynn Walker LPN CARE MANAGER 05/26/2015 Office visit Kaylynn Walker LPN CARE MANAGER 05/20/2015 Office visit Kaylynn Walker LPN CARE MANAGER 05/08/2015 Office visit Heena Dumont MD 05/06/2015 Office visit Kaylynn Walker LPN CARE MANAGER 04/29/2015 Office visit Kaylynn Walker LPN CARE MANAGER 03/27/2015 Voided Brittni Yanez LPN CARE MANAGER 03/21/2015 Office visit Heena Dumont MD 03/12/2015 Office visit Kaylynn Mendez LPN CARE MANAGER 02/26/2015 Office visit Brittni Yanez LPN CARE MANAGER 02/13/2015 Office visit Heena Dumont MD 01/15/2015 Office visit Brittni Yanez LPN CARE MANAGER 01/13/2015 Office visit Heena Dumont MD 01/08/[address] Carol Fowler MD 01/01/2015 Office visit Brittni Yanez LPN CARE MANAGER 12/13/2014 Office visit Heena Dumont MD 11/27/2014 Office visit Kaylynn Mendez LPN CARE MANAGER 11/14/2014 Office visit Heena Dumont MD 10/18/2014 Office visit Heena Dumont MD 10/17/2014 [facility] John Hoskins MD 10/09/2014 Office visit Heena Dumont MD 09/25/2014 Office visit Heena Dumont MD 09/17/2014 Office visit Kaylynn Mendez LPN CARE MANAGER 09/04/2014 Office visit Heena Dumont MD 08/28/2014 Office visit Kaylynn Mendez LPN CARE MANAGER 08/23/2014 [facility] John Hoskins MD 08/01/2014 Office visit Kaylynn Mendez LPN CARE MANAGER 07/29/2014 Office visit Heena Dumont MD 07/25/2014 Nurse visit Heena Dumont MD 07/17/2014 Office visit Kaylynn Mendez LPN CARE MANAGER 07/11/2014 Office visit Heena Dumont MD 07/01/2014 Office visit Heena Dumotn MD 06/25/2014 Office visit Kaylynn Mendez LPN CARE MANAGER 06/12/2014 Office visit Kaylynn Mendez LPN CARE MANAGER 06/06/2014 Office visit Kaylynn Mendez LPN CARE MANAGER 05/27/2014 Office visit Heena Dumont MD 04/20/2014 Office visit Yesica Falcon LPN CARE MANAGER 03/29/2014 Office visit Na Jones LPN CARE MANAGER 03/15/2014 Office visit Heena Dumont MD 2014 Office visit Heena Dumont MD 2014 [facility] John Hoskins MD 02/27/2014 Nurse visit Heena Dumont MD 02/13/2014 Office visit Lena El LPN CARE MANAGER 02/07/2014 Office visit Heena Dumont MD 02/03/2014 Office visit Na Jones LPN CARE MANAGER 01/30/2014 Office visit Kaylynn Mendez LPN CARE MANAGER 01/24/2014 Office visit Sundeep Russell LPN CARE MANAGER 01/16/2014 Office visit Kaylynn Mendez LPN CARE MANAGER 01/10/2014 Nurse visit Kaylynn Mendez LPN CARE MANAGER 01/08/2014 Office visit Kaylynn Walker LPN CARE MANAGER 12/05/2013 Office visit Kaylynn Mendez LPN CARE MANAGER 11/21/2013 Office visit Kaylynn Mendez LPN CARE MANAGER 10/23/2013 Office visit Brittni Yanez LPN CARE MANAGER 10/17/2013 Nurse visit Heena Dumont MD 10/12/2013 Office visit Kaylynn Mendez LPN CARE MANAGER 10/02/2013 Office visit Heena Dumont MD 09/20/2013 Nurse visit Kaylynn Mendez LPN CARE MANAGER 09/20/2013 Voided Heena Dumont MD 09/14/2013 Office visit Kaylynn Mendez LPN CARE MANAGER 09/05/2013 Office visit Sundeep Russell LPN CARE MANAGER 09/04/2013 Nurse visit Kaylynn Walker LPN CARE MANAGER 08/31/2013 Office visit Kaylynn Mendez LPN CARE MANAGER 08/23/2013 Office visit Heena Dumont MD 08/10/2013 Office visit Kaylynn Mendez LPN CARE MANAGER 07/25/2013 Office visit Kaylynn Walker LPN CARE MANAGER 07/18/2013 Office visit Kaylynn Walker LPN CARE MANAGER 07/12/2013 Office visit Kaylynn Walker LPN CARE MANAGER 06/28/2013 Nurse visit Kaylynn Walker LPN CARE MANAGER 06/14/2013 Nurse visit Kaylynn Walker LPN CARE MANAGER 06/08/2013 Nurse visit Kaylynn Walker LPN CARE MANAGER 05/31/2013 Nurse visit Chadd Norris DO 05/18/2013 Office visit Terese Davidson MD 05/16/2013 Office visit Kaylynn Walker LPN CARE MANAGER 05/09/2013 Office visit Kaylynn Walker LPN CARE MANAGER 04/29/2013 [facility] John Hoskins MD 04/25/2013 Nurse visit Kaylynn Walker LPN CARE MANAGER 04/17/2013 Office visit Kaylynn Walker LPN CARE MANAGER 04/03/2013 Nurse visit Kaylynn Walker LPN CARE MANAGER 04/03/2013 Office visit Terese Davidson MD 03/28/2013 Office visit Sundeep Russell LPN CARE MANAGER 03/21/2013 Office visit Kaylynn Mendez LPN CARE MANAGER 03/20/2013 Office visit Terese Davidson MD 03/14/2013 Nurse visit Kaylynn Walker LPN CARE MANAGER 03/05/2013 Nurse visit Kaylynn Walker LPN CARE MANAGER 02/19/2013 Office visit Terese Davidson MD 02/16/2013 Nurse visit Kaylynn Mendez LPN CARE MANAGER 02/09/2013 Office visit Sundeep Russell LPN CARE MANAGER 02/08/2013 Nurse visit Kaylynn Walker LPN CARE MANAGER 02/01/2013 Nurse visit Kaylynn Walker LPN CARE MANAGER 01/26/2013 Nurse visit Sabrina Andrea DE ALCOHOLIZER 01/25/2013 Office visit Kaylynn Andrea LPN CARE MANAGER 01/22/2013 Office visit Yoan Castaneda MD 01/18/2013 Nurse visit Kaylynn Walker LPN CARE MANAGER 01/11/2013 Nurse visit Kaylynn Walker LPN CARE MANAGER 01/05/2013 Nurse visit Kaylynn Walker LPN CARE MANAGER 12/29/2012 Office visit Kaylynn Walker LPN CARE MANAGER 11/27/2012 Office visit Kaylynn Mendez LPN CARE MANAGER 11/08/2012 Office visit Odell Tierney MD 11/08/2012 Voided Odell Tierney MD 11/07/2012 Office visit Kaylynn Mendez LPN CARE MANAGER 10/31/2012 [facility] John Hoskins MD 10/31/2012 Office visit Kaylynn Mendez LPN CARE MANAGER 10/19/2012 Office visit Genoveva Ayala LPN CARE MANAGER 10/10/2012 Office visit Kaylynn Mendez LPN CARE MANAGER 10/03/2012 Office visit Kaylynn Walker LPN CARE MANAGER 09/26/2012 Office visit Kaylynn Walker LPN CARE MANAGER 09/06/2012 Office visit Kaylynn Mendez LPN CARE MANAGER 09/06/2012 Office visit Odell Tierney MD 08/31/2012 Voided Kaylynn Mendez LPN CARE MANAGER 07/28/2012 Office visit Kaylynn Mendez LPN CARE MANAGER 07/27/2012 Office visit David Joyner DO 07/20/2012 [facility] David Joyner DO 07/13/2012 [facility] David Joyner DO 07/11/2012 Office visit Kyalynn Mendez LPN CARE MANAGER 06/27/2012 [facility] Odell Tierney MD 06/21/2012 Office visit David Joyner DO 06/21/2012 Office visit Odell Tierney MD 06/20/2012 Office visit Brittni Yanez LPN CARE MANAGER 06/06/2012 Office visit Odell Tierney MD 05/03/2012 Office visit Kaylynn Mendez LPN CARE MANAGER 04/28/2012 Office visit Brittni Yanez LPN CARE MANAGER 04/11/2012 Office visit Kaylynn Mendez LPN CARE MANAGER 04/06/2012 [facility] John Hoskins MD 03/30/2012 Office visit Kaylynn Mendez LPN CARE MANAGER 03/15/2012 Office visit Kaylynn Walker LPN CARE MANAGER 03/15/2012 Office visit Odell Tierney MD 02/09/2012 Office visit Kaylynn Walker LPN CARE MANAGER 12/23/2011 Office visit Kaylynn Walker LPN CARE MANAGER 11/02/2011 Office visit Kaylynn Walker LPN CARE MANAGER 10/14/2011 Office visit Kaylynn Walker LPN CARE MANAGER 09/27/2011 Office visit Kaylynn Mendez LPN CARE MANAGER 08/19/2011 Hospital John Hoskins MD 08/18/2011 [facility] John Hoskins MD 08/18/2011 Office visit Kaylynn Mendez LPN CARE MANAGER 08/02/2011 Office visit Kaylynn Mendez LPN CARE MANAGER 07/08/2011 Office visit Kaylynn Andrea LPN CARE MANAGER 07/05/2011 Office visit Odell Tierney MD 06/15/2011 Office visit Kaylynn Mendez LPN CARE MANAGER 05/14/2011 Office visit Kaylynn Andrea LPN CARE MANAGER 05/11/2011 Office visit Odell Tierney MD 04/28/2011 Office visit Kaylynn Mendez LPN CARE MANAGER 03/02/2011 Office visit Chadd Norris DO [...] Yoan Castaneda MD 01/29/2010 Office visit Hillary Graeme RITCHIE 12/23/2009 Surgery Yoan Castaneda MD 12/16/2009 Surgery Yoan Castaneda MD 12/10/2009 Office visit Odell Tierney MD 11/26/2009 Office visit Yoan Castaneda MD 11/17/2009 Office visit Odell Tierney MD 11/10/2009 Office visit Chadd Norris DO
--- OUTSIDE RECORDS SUMMARY | 2018-05-09 16:19 | XMS REPORT ---
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 Name Role Phone Brittni Yanez PCP Unavailable Allergies and Adverse Reactions Name Reaction Notes Aspirin Methadone Ultram Vicodin Plan of Treatment Planned Activity Comments Planned Date Planned Time Plan/Goal ELECTROCARDIOGRAM COMPLETE 10/31/2012 12:[address] PELVIS [...] BY MOUTH EVERY EVENING Sudafed 12 Hour 120 mg oral tablet extended release 07/17/2014 take 1 tablet (120 mg) by oral route every 12 hours baclofen 10 mg oral tablet 07/31/2014 1 [...] (18 mcg) by inhalation route once daily baclofen 10 mg oral tablet 10/18/2014 02/15/2015 1/2 TABLET BY ORAL ROUTE 3 TIMES PER DAY PRN MUSCLE SPASM promethazine 25 mg oral tablet 12/16/2014 TAKE 1 TABLET BY MOUTH TWICE DAILY Ambien CR 12.5 mg oral tablet,ext release multiphase 12/28/2014 01/27/2015 take 1 tablet (12.5 mg) by oral route once daily at bedtime for 30 days Invokana 100 mg oral tablet take 1 [...] the upper arm, upper thigh or abdomen oxycodone 5 mg oral tablet 01/13/2015 02/12/2015 take 1 tablet by oral route every 12 hours for 30 days baclofen 10 mg oral tablet 01/16/2015 03/17/2015 1 TABLET BY ORAL ROUTE BEFORE BED PRN MUSCLE SPASM Name Start Date Expiration Date SIG Comments [...] 08/27/2014 use as directed for 99 days [place] 5-325 mg oral tablet 06/17/2014 06/27/2014 take [...] a day as needed for 30 days awwupsbt-[id number]-FX 3.5-10,000-1 mg/mL-unit/mL-% otic drops,suspension 201401/08/2015 instill 4 drops into affected ear(s) by otic route 3 times per day for 7 days rx completed Discontinued Name Start Date Discontinued Date SIG [...] per day in the morning and evening Flonase 50 mcg/actuation nasal spray,suspension 01/08/2015 inhale [...] HC BMI BSA BMI Percentile O2 Sat(%) 01/15/2015 10:55:00 AM 86 bpm 20 rpm 96.8 F 157.6 lbs 96 % 01/13/2015 4:28:00 PM 110 mmHg 70 mmHg 94 bpm 98.2 F 156.375 lbs 63 in 27.70 kg/m2 1.7756 m 99 % 01/08/2015 3:14:00 PM 114 mmHg 77 mmHg 77 bpm 97.2 F 158.125 lbs 63 in 28.0103 kg/m 1.79 m2 01/01/2015 2:18:00 PM 125 mmHg 70 mmHg 103 bpm 20 rpm 97.8 F 187 lbs 63 in 33.13 kg/m2 1.9417 m 98 % 12/13/2014 11:03:00 AM 112 mmHg 70 mmHg 86 bpm 97.7 F 156.25 lbs 63 in 27.6782 kg/m 1.77 m2 97 % 11/27/2014 9:57:00 AM 110 mmHg 80 mmHg 97 bpm 16 rpm 98.3 F 156 lbs 63 in 27.63 kg/m2 1.7735 m 96 % 11/14/2014 3:57:00 PM 112 mmHg 72 mmHg 90 bpm 99 F 156.5 lbs 63 in 27.7224 kg/m 1.78 m2 96 % 10/18/2014 11:46:00 AM [...] Reviewed 04/28/2011 12:00 AM Decadron 1 mg ND#[id number] (Jr) Reviewed 04/28/2011 12:00 AM Depo-Medrol 80 mg NDC#[id number]-Vtiirxhf Reviewed 05/11/2011 12:00 AM N BLOCK INJ OCCIPITAL Reviewed 05/11/2011 12:00 AM Kenalog Rp-[address]-20 ANNA Reviewed 06/15/2011 12:00 AM COMPLETE CBC W/AUTO DIFF WBC Returned 06/15/2011 12:00 AM COMPREHEN METABOLIC PANEL Returned 07/08/2011 12:00 AM THER/PROPH/DIAG INJ SC/IM Reviewed 07/08/2011 12:00 AM Toradol,15mg ND#[id number], Brunildaer Reviewed 07/08/2011 12:00 AM Phenergan 50 Mg Im Nd 5508-3770-20 ALLIE Hoskins Reviewed 08/02/2011 12:00 AM THER/PROPH/DIAG INJ SC/IM Reviewed 08/02/2011 12:00 AM Decadron 1 mg NDC#[id number] (Jr) Reviewed 08/02/2011 12:00 AM Depo-Medrol 80 mg NDC#[id number]-Rwsayptw Reviewed 09/27/2011 12:00 AM THER/PROPH/DIAG INJ SC/IM Reviewed 09/27/2011 12:00 AM Depo-Medrol 80 mg NDC#[id number]-Qyktrggo Reviewed 10/14/2011 12:00 AM X-RAY EXAM OF ABDOMEN Returned 10/14/2011 12:00 AM URINALYSIS AUTO W/O SCOPE Reviewed 12/23/2011 12:00 AM THER/PROPH/DIAG INJ SC/IM Reviewed 12/23/2011 12:00 AM Decadron 1 mg NDC#[id number] (Jr) Reviewed 12/23/2011 12:00 AM Depo-Medrol 80 mg NDC#[id number]-Rbdbunru Reviewed 02/09/2012 12:00 AM THER/PROPH/DIAG INJ SC/IM Reviewed 02/09/2012 12:00 AM Decadron 1 mg NDC#[id number] (Jr) Reviewed 02/09/2012 12:00 AM Depo-Medrol 80 mg NDC#[id number]-Cwznfzsq Reviewed 03/15/2012 12:00 AM N BLOCK INJ OCCIPITAL Reviewed 03/15/2012 12:00 AM Kenalog Ri-[address]-20 ANNA Reviewed 04/11/2012 12:00 AM COMPLETE CBC W/AUTO DIFF WBC Returned 04/11/2012 12:00 AM COMPREHEN METABOLIC PANEL Returned 04/11/2012 12:00 AM LIPID PANEL Returned 04/11/2012 12:00 AM ASSAY THYROID STIM HORMONE Returned 06/20/2012 12:00 AM THER/PROPH/DIAG INJ SC/IM Reviewed 06/20/2012 12:00 AM Decadron, Per 1 Mg ND# [address]-75 Reviewed 06/20/2012 12:00 AM Depo-Medrol, Per 80 Mg NDC#4312-7213-27 Reviewed 09/06/2012 12:00 AM N BLOCK INJ OCCIPITAL Reviewed 09/06/2012 12:00 AM Kenalog Ra-[address]-20 ANNA Reviewed 09/06/2012 12:00 AM X-RAY EXAM RIBS UNI 2 VIEWS Returned 09/26/2012 12:00 AM THER/PROPH/DIAG INJ SC/IM Reviewed 09/26/2012 12:00 AM Decadron, Per 1 Mg ND# [address]-79 Reviewed 09/26/2012 12:00 AM Depo-Medrol, Per 80 Mg NDC#4494-8295-17 Reviewed 10/03/2012 12:00 AM URINALYSIS AUTO W/O SCOPE Reviewed 10/03/2012 12:00 AM THER/PROPH/DIAG INJ SC/IM Reviewed 10/03/2012 12:00 AM Toradol 60 Mg ND#5852-4748-08 Reviewed 10/03/2012 12:00 AM Phenergan, 25Mg ND#2469-0130-57 Reviewed 10/19/2012 12:00 AM N BLOCK INJ OCCIPITAL Reviewed 10/19/2012 12:00 AM Kenalog, Per 10 Mg ND#7462-8788-59 Reviewed 10/19/2012 12:00 AM Toradol 30 Mg ND#6757-1595-20 Reviewed 10/19/2012 12:00 AM THER/PROPH/DIAG INJ SC/IM Reviewed 10/31/2012 12:00 AM COMPLETE CBC W/AUTO DIFF WBC Returned 10/31/2012 12:00 AM COMPREHEN METABOLIC PANEL Returned 10/31/2012 12:00 AM LIPID PANEL Returned 11/03/2012 12:[address] THORAX W/O & W/DYE Returned 11/08/2012 12:00 AM N BLOCK INJ OCCIPITAL Reviewed 11/08/2012 12:00 AM Kenalog Bh-[address]-20 ANNA Reviewed 11/27/2012 12:00 AM COMPLETE CBC [...] 01/25/2013 12:00 AM Decadron, Per 1 Mg [facility]# [address]-43 Reviewed 01/25/2013 12:00 AM Depo-Medrol, Per 80 Mg [facility]#3898-2033-08 Reviewed 01/26/2013 12:00 AM IMMUNOTHERAPY INJECTIONS Returned [...] 05/16/2013 12:00 AM Decadron, Per 1 Mg [facility]# [address]-91 Reviewed 05/16/2013 12:00 AM Depo-Medrol, Per 80 Mg [facility]#4162-9570-88 Reviewed 05/31/2013 12:00 AM IMMUNOTHERAPY INJECTIONS Reviewed 06/08/2013 12:00 AM IMMUNOTHERAPY INJECTIONS Reviewed 06/14/2013 12:00 AM IMMUNOTHERAPY INJECTIONS Reviewed 06/28/2013 12:00 AM IMMUNOTHERAPY INJECTIONS Reviewed 07/12/2013 12:00 AM X-RAY EXAM RIBS UNI 2 VIEWS Returned 07/18/2013 12:00 AM Toradol 60 Mg [facility]#1050-6525-75 Reviewed 07/18/2013 12:00 AM THER/PROPH/DIAG INJ SC/IM Reviewed 08/23/2013 12:00 AM COMPLETE CBC W/AUTO DIFF WBC Reviewed 08/23/2013 12:00 AM COMPREHEN METABOLIC PANEL Reviewed 08/23/2013 12:00 AM LIPID PANEL Reviewed 08/31/2013 12:00 AM X-RAY EXAM OF LOWER LEG Returned 09/04/2013 12:00 AM IMMUNOTHERAPY INJECTIONS Reviewed 09/14/2013 12:00 AM THER/PROPH/DIAG INJ SC/IM Reviewed 09/14/2013 12:00 AM Decadron, Per 1 Mg [facility]# [address]-16 Reviewed 09/14/2013 12:00 AM Depo-Medrol, Per 80 Mg [facility]#1552-2153-13 Reviewed 09/20/2013 12:00 AM IMMUNOTHERAPY INJECTIONS Reviewed [...] INJ OCCIPITAL Reviewed 12/10/2009 12:00 AM Kenalog Ny-[address]-20 ANNA Reviewed 12/16/2009 12:00 AM HIV-1ANTIBODY Reviewed 12/16/2009 12:00 AM COMPLETE CBC W/AUTO DIFF WBC Reviewed 12/16/2009 12:00 AM METABOLIC PANEL TOTAL CA Reviewed 12/16/2009 12:00 AM Type and screen Reviewed 12/16/2009 12:00 AM PROTHROMBIN TIME Reviewed 12/16/2009 12:00 AM THROMBOPLASTIN TIME PARTIAL Reviewed 03/18/2010 12:00 AM DRAIN/INJ JOINT/BURSA W/O US Reviewed 03/18/2010 12:00 AM Kenalog Bm-[address]-20 ANNA Reviewed 11/21/2013 12:00 AM RADEX HAND MINIMUM 3 VIEWS Returned 06/03/2010 12:00 AM INJ TRIGGER POINT 1/2 MUSCL Reviewed 06/03/2010 12:00 AM Kenalog per 10Mg Im-[facility]#[address]-77(Niall) Reviewed 12/05/2013 12:00 AM COMPLETE CBC W/AUTO [...] 12:00 AM Kenalog per 10Mg Im-[facility]#[address]-51(Niall) Reviewed 2014 12:00 AM COMPLETE CBC W/AUTO [...] INJ OCCIPITAL Reviewed 10/01/2010 12:00 AM Kenalog Go-[address]-20 ANNA Reviewed 07/25/2014 12:00 AM THER/PROPH/DIAG INJ [...] 0.60 mg/dLCALCIUM 10.90 mg/ dLeGFR >60 mL/min/1.73 h2MZDMBU 45.0 U/L 08/31/2013 10:54 AM GLUCOSE 255.0 [...] 0.40 mg/ dLCALCIUM 10.60 mg/dLeGFR >60 mL/min/1.73 [id number] 369.0 mg/ dLCHOLESTEROL 153.0 mg/dLHDL 26.0 mg/dLLDL [...] BILI 0.30 mg/dLCALCIUM 10.0 mg/dLeGFR >60 mL/min/1.73 p0OSOIT YELLOW APPEARANCE CLEAR SPEC GRAV 1.010 pH 5.5 PROTEIN NEGATIVE GLUCOSE NEGATIVE KETONE NEGATIVE BILIRUBIN NEGATIVE BLOOD NEGATIVE NITRITE NEGATIVE LEUK SCREEN NEGATIVE HGB A1C 6.30 %Est Avg Glucose 134.1 mg/dLMICROALBUMIN UR <0.5 MG/DL History Of Immunizations Name Date Admin Mf [place] [facility] [place] Name Lot# Route Inj Vis Given Vis Pub CVX Influenza 03/30/2011 Not Entered NE Not Entered Not Entered Not Entered 03/31/2011 05/30/2015 141 Influenza 04/24/2014 sanofi pasteur PMC Fluzone [id number] Intramuscular Left Upper Arm 02/27/2014 01/15/2014 141 [...] 2014 10:04AM Asthma b 2014 10:04AM Headache Feb 2014 4:46PM Fall as cause of accidental injury in home as place of occurrence, initial encounter Feb 2014 4:46PM Ankle instability, left Feb 2014 11:30AM Ankle pain b 2014 11:30AM History of fall b 2014 11:30AM Headache Feb 24 2014 11:30AM Osteoporosis Feb 2014 2:09PM Post [...] 2015 10:56AM Osteoporosis Jan 21 2015 3:43PM Payers Insurance Name Company Name Plan Name Plan Number Policy Number Policy Group Number Start Date Medicare Part A Medicare Part A [id number] N/A [facility] Comm [id number] N/A [facility] Asst Pro - [facility] Asst Pro - [facility] [id number] May [facility] Comm Plan of [id number] Wednesday, 2012 Medicare Part B Medicare [place] [id number] Monday, 2000 [place] [facility] Prog [id number] Tuesday, 2009 History of Encounters Visit Date Visit Type Provider 01/15/2015 Office visit Brittni Yanez AIR HOSE COUPLER 01/13/2015 Office visit Heena Dumont MD 01/08/[address] Carol Fowler MD 01/01/2015 Office visit Brittni Yanez AIR HOSE COUPLER 12/13/2014 Office visit Heena Dumont MD 11/27/2014 Office visit Kaylynn Mendez AIR HOSE COUPLER 11/14/2014 Office visit Heena Dumont MD 10/18/2014 Office visit Heena Dumont MD 10/09/2014 Office visit Heena Dumont MD 09/25/2014 Office visit Heena Dumont MD 09/17/2014 Office visit Kaylynn Mendez AIR HOSE COUPLER 09/04/2014 Office visit Heena Dumont MD 08/28/2014 Office visit Kaylynn Mendez AIR HOSE COUPLER 08/23/2014 [facility] John Hoskins MD 08/01/2014 Office visit Kaylynn Mendez AIR HOSE COUPLER 07/29/2014 Office visit Heena Dumont MD 07/25/2014 Nurse visit Heena Dumont MD 07/17/2014 Office visit Kaylynn Mendez AIR HOSE COUPLER 07/11/2014 Office visit Heena Dumont MD 07/01/2014 Office visit Heena Dumont MD 06/25/2014 Office visit Kaylynn Mendez AIR HOSE COUPLER 06/12/2014 Office visit Kaylynn Mendez AIR HOSE COUPLER 06/06/2014 Office visit Kaylynn Mendez AIR HOSE COUPLER 05/27/2014 Office visit Heena Dumont MD 04/20/2014 Office visit Yesica Falcon AIR HOSE COUPLER 03/29/2014 Office visit Na Jones AIR HOSE COUPLER 03/15/2014 Office visit Heena Dumont MD 2014 Office visit Heena Dumont MD 2014 [facility] John Hoskins MD 02/27/2014 Nurse visit Heena Dumont MD 02/13/2014 Office visit Lena El AIR HOSE COUPLER 02/07/2014 Office visit Heena Dumont MD 02/03/2014 Office visit Na Jones AIR HOSE COUPLER 01/30/2014 Office visit Kaylynn Mendez AIR HOSE COUPLER 01/24/2014 Office visit Sundeep Russell AIR HOSE COUPLER 01/16/2014 Office visit Kaylynn Mendez AIR HOSE COUPLER 01/10/2014 Nurse visit Kaylynn Mendez AIR HOSE COUPLER 01/08/2014 Office visit Kaylynn Mendez AIR HOSE COUPLER 12/05/2013 Office visit Kaylynn Mendez AIR HOSE COUPLER 11/21/2013 Office visit Kaylynn Walker AIR HOSE COUPLER 10/23/2013 Office visit Brittni Yanez AIR HOSE COUPLER 10/17/2013 Nurse visit Heena Dumont MD 10/12/2013 Office visit Kaylynn Mendez AIR HOSE COUPLER 10/02/2013 Office visit Heena Dumont MD 09/20/2013 Nurse visit Kaylynn Mendez AIR HOSE COUPLER 09/20/2013 Voided Heena Dumont MD 09/14/2013 Office visit Kaylynn Walker AIR HOSE COUPLER 09/05/2013 Office visit Sundeep Russell AIR HOSE COUPLER 09/04/2013 Nurse visit Kaylynn Walker AIR HOSE COUPLER 08/31/2013 Office visit Kaylynn Walker AIR HOSE COUPLER 08/23/2013 Office visit Heena Dumont MD 08/10/2013 Office visit Kaylynn Walker AIR HOSE COUPLER 07/25/2013 Office visit Kaylynn Walker AIR HOSE COUPLER 07/18/2013 Office visit Kaylynn Walker AIR HOSE COUPLER 07/12/2013 Office visit Kaylynn Walker AIR HOSE COUPLER 06/28/2013 Nurse visit Kaylynn Walker AIR HOSE COUPLER 06/14/2013 Nurse visit Kaylynn Walker AIR HOSE COUPLER 06/08/2013 Nurse visit Kaylynn Mendez AIR HOSE COUPLER 05/31/2013 Nurse visit Chadd Norris DO 05/18/2013 Office visit Terese Davidson MD 05/16/2013 Office visit Kaylynn eMndez AIR HOSE COUPLER 05/09/2013 Office visit Kaylynn Mendez AIR HOSE COUPLER 04/29/2013 [facility] John Hoskins MD 04/25/2013 Nurse visit Kaylynn Mendez AIR HOSE COUPLER 04/17/2013 Office visit Kaylynn Mendez AIR HOSE COUPLER 04/03/2013 Nurse visit Kaylynn Mendez AIR HOSE COUPLER 04/03/2013 Office visit Terese Davidosn MD 03/28/2013 Office visit Sundeep Russell AIR HOSE COUPLER 03/21/2013 Office visit Kaylynn Mendez AIR HOSE COUPLER 03/20/2013 Office visit Terese Davidson MD 03/14/2013 Nurse visit Kaylynn Mendez AIR HOSE COUPLER 03/05/2013 Nurse visit Kaylynn Mendez AIR HOSE COUPLER 02/19/2013 Office visit Terese Davidson MD 02/16/2013 Nurse visit Kaylynn Mendez AIR HOSE COUPLER 02/09/2013 Office visit Sundeep Russell AIR HOSE COUPLER 02/08/2013 Nurse visit Kaylynn Mendez AIR HOSE COUPLER 02/01/2013 Nurse visit Kaylynn Mendez AIR HOSE COUPLER 01/26/2013 Nurse visit Sabrina Mendez DESIGN SALES CONSULTANT 01/25/2013 Office visit Kaylynn Mendez AIR HOSE COUPLER 01/22/2013 Office visit Yoan Castaneda MD 01/18/2013 Nurse visit Kaylynn Mendez AIR HOSE COUPLER 01/11/2013 Nurse visit Kaylynn Mendez AIR HOSE COUPLER 01/05/2013 Nurse visit Kaylynn Walker AIR HOSE COUPLER 12/29/2012 Office visit Kaylynn Walker AIR HOSE COUPLER 11/27/2012 Office visit Kaylynn Walker AIR HOSE COUPLER 11/08/2012 Office visit Odell Tierney MD 11/08/2012 Voided Odell Tierney MD 11/07/2012 Office visit Kaylynn Mendez AIR HOSE COUPLER 10/31/2012 [facility] John Hoskins MD 10/31/2012 Office visit Kaylynn Walker AIR HOSE COUPLER 10/19/2012 Office visit Genoveva Ayala AIR HOSE COUPLER 10/10/2012 Office visit Kaylynn Walker AIR HOSE COUPLER 10/03/2012 Office visit Kaylynn Walker AIR HOSE COUPLER 09/26/2012 Office visit Kaylynn Walker AIR HOSE COUPLER 09/06/2012 Office visit Kaylynn Walker AIR HOSE COUPLER 09/06/2012 Office visit Odell Tierney MD 08/31/2012 Voided Kaylynn Mendez AIR HOSE COUPLER 07/28/2012 Office visit Kaylynn Walker AIR HOSE COUPLER 07/27/2012 Office visit David Joyner DO 07/20/2012 [facility] 07/13/2012 [facility] DO 07/11/2012 Office visit Kaylynn Mendez AIR HOSE COUPLER 06/27/2012 [facility] Odell Tierney MD 06/21/2012 Office visit David Joyner DO 06/21/2012 Office visit Odell Tierney MD 06/20/2012 Office visit Brittni Yanez AIR HOSE COUPLER 06/06/2012 Office visit Odell Tierney MD 05/03/2012 Office visit Kaylynn Mendez AIR HOSE COUPLER 04/28/2012 Office visit Brittni Yanez AIR HOSE COUPLER 04/11/2012 Office visit Kaylynn Mendez AIR HOSE COUPLER 04/06/2012 [facility] John Hoskins MD 03/30/2012 Office visit Kaylynn Walker AIR HOSE COUPLER 03/15/2012 Office visit Kaylynn Mendez AIR HOSE COUPLER 03/15/2012 Office visit Odell Tierney MD 02/09/2012 Office visit Kaylynn Mendez AIR HOSE COUPLER 12/23/2011 Office visit Kaylynn Walker AIR HOSE COUPLER 11/02/2011 Office visit Kaylynn Walker AIR HOSE COUPLER 10/14/2011 Office visit Kaylynn Mendez AIR HOSE COUPLER 09/27/2011 Office visit Kaylynn Walker AIR HOSE COUPLER 08/19/2011 [facility] John Hoskins MD 08/18/2011 [facility] John Hoskins MD 08/18/2011 Office visit Kaylynn Walker AIR HOSE COUPLER 08/02/2011 Office visit Kaylynn Walker AIR HOSE COUPLER 07/08/2011 Office visit Kaylynn Walker AIR HOSE COUPLER 07/05/2011 Office visit Odell Tierney MD 06/15/2011 Office visit Kaylynn Andrea AIR HOSE COUPLER 05/14/2011 Office visit Kaylynn Mendez AIR HOSE COUPLER 05/11/2011 Office visit Odell Tierney MD 04/28/2011 Office visit Kaylynn Mendez AIR HOSE COUPLER 03/02/2011 Office visit Chadd Norris DO 02/17/2011 [...]
--- OUTSIDE RECORDS SUMMARY | 2018-05-09 16:23 | XMS REPORT ---
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 Name Role Phone Sundeep Russell PCP Allergies and Adverse Reactions Name Reaction Notes Aspirin Methadone Ultram Vicodin Plan of Treatment Planned Activity Comments Planned Date Planned Time Plan/Goal CINE/VID X-RAY THROAT/ESOPH 05/08/2015 12:00 AM COMPREHEN METABOLIC PANEL 09/16/2015 12:00 AM ELECTROCARDIOGRAM COMPLETE 11/13/2015 12:00 AM ASSAY OF TROPONIN QUANT 11/13/2015 12:00 AM ASSAY THYROID STIM HORMONE 11/13/2015 12:00 AM COMPLETE CBC W/AUTO DIFF WBC 11/13/2015 12:00 AM METABOLIC PANEL TOTAL CA 11/13/2015 12:00 AM ASSAY OF MAGNESIUM 11/13/2015 12:00 AM ELECTROCARDIOGRAM COMPLETE 10/31/2012 12:00 AM [...] 3 TIMES PER DAY PRN MUSCLE SPASM OneTouch Delnatalio Lancets 33 gauge miscellaneous [facility] 08/21/2014 use as directed Calcium 500 + [...] daily into the thigh or abdominal wall Ventolin HFA 90 mcg/actuation inhalation HFA aerosol [...] a day (at bedtime) for 30 days Patanol 0.1 % ophthalmic drops 10/20/2015 instill 1 drop into affected eye( s) by ophthalmic route 2 times per day at an interval of 6 to 8 hours hydrocodone-acetaminophen 10-325 mg oral tablet 10/28/2015 11/27/2015 take 1 tablet by oral route every [...] 08/27/2014 use as directed for 99 days Hugo 5-325 mg oral tablet 06/17/2014 06/27/2014 take [...] a day as needed for 30 days mablixbv-fkjgonqfh-ZC 3.5-10,000-1 mg/mL-unit/mL-% otic drops,suspension 201401/08/2015 instill 4 [...] 10/11/2015 use as directed for 99 days azithromycin 250 mg oral tablet 11/03/2015 [...] HC BMI BSA BMI Percentile O2 Sat(%) 11/03/2015 9:27:00 AM 118 mmHg 80 mmHg [...] Reviewed 04/28/2011 12:00 AM Decadron 1 mg [facility]#[id number] (Jr) Reviewed 04/28/2011 12:00 AM Depo-Medrol 80 mg ND#[id number]-Hpftpysy Reviewed 09/02/2015 12:00 AM Toradol 60 Mg [facility]#9189-2739-56 Reviewed 09/02/2015 12:00 AM Phenergan, Up to 50 Mg [facility] Medicaid Reviewed 09/16/2015 12:00 AM Toradol 60 Mg [facility]#6242-4920-15 Reviewed 09/16/2015 12:00 AM Phenergan Up to 50 mg [facility] Medicare Reviewed 05/11/2011 12:00 AM N BLOCK INJ OCCIPITAL Reviewed 05/11/2011 12:00 AM Kenalog Sk-[address]-20 ANNA Reviewed 06/15/2011 12:00 AM COMPLETE CBC W/AUTO DIFF WBC Returned 06/15/2011 12:00 AM COMPREHEN METABOLIC PANEL Returned 07/08/2011 12:00 AM THER/PROPH/DIAG INJ SC/IM Reviewed 07/08/2011 12:00 AM Toradol,15mg [facility]#[id number], Brunildaer Reviewed 07/08/2011 12:00 AM Phenergan 50 Mg Im [facility] 8530-1504-44 ALLIE Hoskins Reviewed 08/02/2011 12:00 AM THER/PROPH/DIAG INJ SC/IM Reviewed 08/02/2011 12:00 AM Decadron 1 mg ND#[id number] (Jr) Reviewed 08/02/2011 12:00 AM Depo-Medrol 80 mg ND#[id number]-Keawoozw Reviewed 09/27/2011 12:00 AM THER/PROPH/DIAG INJ SC/IM Reviewed 09/27/2011 12:00 AM Depo-Medrol 80 mg NDC#[id number]-Bniedmfq Reviewed 10/14/2011 12:00 AM X-RAY EXAM OF ABDOMEN Returned 10/14/2011 12:00 AM URINALYSIS AUTO W/O SCOPE Reviewed 12/23/2011 12:00 AM THER/PROPH/DIAG INJ SC/IM Reviewed 12/23/2011 12:00 AM Decadron 1 mg NDC#[id number] (Jr) Reviewed 12/23/2011 12:00 AM Depo-Medrol 80 mg NDC#[id number]-Ixvksead Reviewed 02/09/2012 12:00 AM THER/PROPH/DIAG INJ SC/IM Reviewed 02/09/2012 12:00 AM Decadron 1 mg NDC#49514372213 (Jr) Reviewed 02/09/2012 12:00 AM Depo-Medrol 80 mg NDC#[id number]-Apepccdn Reviewed 03/15/2012 12:00 AM N BLOCK INJ OCCIPITAL Reviewed 03/15/2012 12:00 AM Kenalog Yt-[address]-20 ANNA Reviewed 04/11/2012 12:00 AM COMPLETE CBC W/AUTO DIFF WBC Returned 04/11/2012 12:00 AM COMPREHEN METABOLIC PANEL Returned 04/11/2012 12:00 AM LIPID PANEL Returned 04/11/2012 12:00 AM ASSAY THYROID STIM HORMONE Returned 06/20/2012 12:00 AM THER/PROPH/DIAG INJ SC/IM Reviewed 06/20/2012 12:00 AM Decadron, Per 1 Mg ND# [address]-35 Reviewed 06/20/2012 12:00 AM Depo-Medrol, Per 80 Mg ND#1600-0508-93 Reviewed 09/06/2012 12:00 AM N BLOCK INJ OCCIPITAL Reviewed 09/06/2012 12:00 AM Kenalog Gt-[address]-20 ANNA Reviewed 09/06/2012 12:00 AM X-RAY EXAM RIBS UNI 2 VIEWS Returned 09/26/2012 12:00 AM THER/PROPH/DIAG INJ SC/IM Reviewed 09/26/2012 12:00 AM Decadron, Per 1 Mg NDC# [address]-41 Reviewed 09/26/2012 12:00 AM Depo-Medrol, Per 80 Mg ND#0538-7327-21 Reviewed 10/03/2012 12:00 AM URINALYSIS AUTO W/O SCOPE Reviewed 10/03/2012 12:00 AM THER/PROPH/DIAG INJ SC/IM Reviewed 10/03/2012 12:00 AM Toradol 60 Mg ND#8517-6109-93 Reviewed 10/03/2012 12:00 AM Phenergan, 25Mg NDC#2545-8574-85 Reviewed 10/19/2012 12:00 AM N BLOCK INJ OCCIPITAL Reviewed 10/19/2012 12:00 AM Kenalog, Per 10 Mg ND#2838-5974-99 Reviewed 10/19/2012 12:00 AM Toradol 30 Mg NDC#1155-0499-00 Reviewed 10/19/2012 12:00 AM THER/PROPH/DIAG INJ SC/IM Reviewed 10/31/2012 12:00 AM COMPLETE CBC W/AUTO DIFF WBC Returned 10/31/2012 12:00 AM COMPREHEN METABOLIC PANEL Returned 10/31/2012 12:00 AM LIPID PANEL Returned 11/03/2012 12:[address] THORAX W/O & W/DYE Returned 11/08/2012 12:00 AM N BLOCK INJ OCCIPITAL Reviewed 11/08/2012 12:00 AM Kenalog Qu-[address]-20 ANNA Reviewed 11/27/2012 12:00 AM COMPLETE CBC [...] Per 1 Mg [facility]# [address]-60 Reviewed 01/25/2013 12:00 AM Depo-Medrol, Per 80 Mg [facility]#2561-2078-16 Reviewed 01/26/2013 12:00 AM IMMUNOTHERAPY INJECTIONS Returned [...] Per 1 Mg [facility]# [address]-86 Reviewed 05/16/2013 12:00 AM Depo-Medrol, Per 80 Mg [facility]#8719-8913-59 Reviewed 05/31/2013 12:00 AM IMMUNOTHERAPY INJECTIONS Reviewed 06/08/2013 12:00 AM IMMUNOTHERAPY INJECTIONS Reviewed 06/14/2013 12:00 AM IMMUNOTHERAPY INJECTIONS Reviewed 06/28/2013 12:00 AM IMMUNOTHERAPY INJECTIONS Reviewed 07/12/2013 12:00 AM X-RAY EXAM RIBS UNI 2 VIEWS Returned 07/18/2013 12:00 AM Toradol 60 Mg [facility]#2268-5843-64 Reviewed 07/18/2013 12:00 AM THER/PROPH/DIAG INJ SC/IM Reviewed 08/23/2013 12:00 AM COMPLETE CBC W/AUTO DIFF WBC Reviewed 08/23/2013 12:00 AM COMPREHEN METABOLIC PANEL Reviewed 08/23/2013 12:00 AM LIPID PANEL Reviewed 08/31/2013 12:00 AM X-RAY EXAM OF LOWER LEG Returned 09/04/2013 12:00 AM IMMUNOTHERAPY INJECTIONS Reviewed 09/14/2013 12:00 AM THER/PROPH/DIAG INJ SC/IM Reviewed 09/14/2013 12:00 AM Decadron, Per 1 Mg [facility]# [address]-35 Reviewed 09/14/2013 12:00 AM Depo-Medrol, Per 80 Mg [facility]#2785-8911-14 Reviewed 09/20/2013 12:00 AM IMMUNOTHERAPY INJECTIONS Reviewed [...] INJ OCCIPITAL Reviewed 12/10/2009 12:00 AM Kenalog Ur-[address]-20 ANNA Reviewed 12/16/2009 12:00 AM HIV-1ANTIBODY Reviewed 12/16/2009 12:00 AM COMPLETE CBC W/AUTO DIFF WBC Reviewed 12/16/2009 12:00 AM METABOLIC PANEL TOTAL CA Reviewed 12/16/2009 12:00 AM Type and screen Reviewed 12/16/2009 12:00 AM PROTHROMBIN TIME Reviewed 12/16/2009 12:00 AM THROMBOPLASTIN TIME PARTIAL Reviewed 03/18/2010 12:00 AM DRAIN/INJ JOINT/BURSA W/O US Reviewed 03/18/2010 12:00 AM Kenalog Pe-[address]-20 ANNA Reviewed 11/21/2013 12:00 AM RADEX HAND MINIMUM 3 VIEWS Returned 06/03/2010 12:00 AM INJ TRIGGER POINT 1/2 MUSCL Reviewed 06/03/2010 12:00 AM Kenalog per 10Mg -[facility]#[address]-30(Niall) Reviewed 12/05/2013 12:00 AM COMPLETE CBC W/AUTO [...] Reviewed 07/23/2010 12:00 AM Kenalog per 10Mg Im-[facility]#[address]-16(Niall) Reviewed 2014 12:00 AM COMPLETE CBC W/AUTO [...] INJ OCCIPITAL Reviewed 10/01/2010 12:00 AM Kenalog Ra-[address]-20 ANNA Reviewed 07/25/2014 12:00 AM THER/PROPH/DIAG INJ [...] 0.60 mg/dLCALCIUM 10.90 mg/ dLeGFR >60 mL/min/1.73 [id number] 45.0 U/L 08/31/2013 10:54 AM GLUCOSE 255.0 [...] 0.40 mg/ dLCALCIUM 10.60 mg/dLeGFR >60 mL/min/1.73 [id number] 369.0 mg/ dLCHOLESTEROL 153.0 mg/dLHDL 26.0 mg/dLLDL [...] BILI 0.30 mg/dLCALCIUM 10.0 mg/dLeGFR >60 mL/min/1.73 l2IZENH YELLOW APPEARANCE CLEAR SPEC GRAV 1.010 pH 5.5 PROTEIN NEGATIVE GLUCOSE NEGATIVE KETONE NEGATIVE BILIRUBIN NEGATIVE BLOOD NEGATIVE NITRITE NEGATIVE LEUK SCREEN NEGATIVE HGB A1C 6.30 %Est Avg Glucose 134.1 mg/dLMICROALBUMIN UR <0.5 MG/DL 02/13/2015 4:38 PM RMSF, IgG, EIA Negative [facility] Spotted Fever,IgM 0.51 E. chaffeensis (HME) [...] BILI 0.30 mg/dLCALCIUM 9.90 mg/dLeGFR >60 mL/min/1.73m 11/03/2015 10:02 AM C REACTIVE PROTEIN 9.0 mg/LURIC ACID 2.8 mg/dLRA Factor < 15.0 IU/mLSEDRATE 10.0 mm/hrANA Direct Negative History Of Immunizations Name Date Admin Mfg Name Mfg Code Trade Name Lot# Route Inj Vis Given Vis Pub CVX Influenza 03/30/2011 Not Entered NE Not Entered Not Entered Not Entered 03/31/2011 05/30/2015 141 Influenza 04/24/2014 sanofi pasteur PMC Fluzone [id number] Intramuscular Left Upper Arm 02/27/2014 01/15/2014 141 Influenza 02/13/2015 sanofi pasteur PMC Fluzone [id number] Intramuscular Left Deltoid 02/13/2015 01/03/2015 140 Tdap [...] Lumbago Feb 6 2011 1:58PM Muscle Spasm b 6 2011 1:58PM Headache b 9 2011 1:38PM Heart Sound Abnormality b 2011 [...] 9:29AM Chest pain Nov 13 2015 2:18PM Payers Insurance Name Company Name Plan Name Plan Number Policy Number Policy Group Number Start Date Medicare Part A Medicare C [id number] N/A [facility] Comm [id number] N/A Medicare Part A Medicare - Lab/Xray [id number] N/A Medicare Part B Medicare Of [place] [id number] Monday, February 28, 2000 [place] [employer] [facility] [place] [employer]g [id number] Tuesday, November 10, 2009 Medicare Part A Medicare Part A [id number] N/A [place] 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 Pepe Figueroa MD 09/02/2015 Office visit Kaylynn Walker [facility] 09/01/2015 Office visit Kaylynn Walker [facility] 07/30/2015 Office visit Heena Dumont MD 07/15/2015 Office visit Kaylynn Walker [facility] 07/04/2015 Office visit Heena Dumont MD 06/06/2015 Office visit Heena Dumont MD 06/06/2015 Office visit Kaylynn Walker [facility] 06/02/2015 Office visit Kaylynn Walker [facility] 05/26/2015 Office visit Kaylynn Walker [facility] 05/20/2015 Office visit Kaylynn Walker [facility] 05/08/2015 Office visit Heena Dumont MD 05/06/2015 Office visit Kaylynn Walker [facility] 04/29/2015 Office visit Kaylynn Walker [facility] 03/27/2015 Voided Brittni Yanez [facility] 03/21/2015 Office visit Heena Dumont MD 03/12/2015 Office visit Kaylynn Mendez [facility] 02/26/2015 Office visit Brittni Yanez [facility] 02/13/2015 Office visit Heena Dumont MD 01/15/2015 Office visit Brittni Yanez [facility] 01/13/2015 Office visit Heena Dumont MD 01/08/[address] Carol Fowler MD 01/01/2015 Office visit Brittni Yanez [facility] 12/13/2014 Office visit Heena Dumont MD 11/27/2014 Office visit Kaylynn Mendez [facility] 11/14/2014 Office visit Heena Dumont MD 10/18/2014 Office visit Heena Dumont MD 10/17/2014 [facility] Hoskins MD 10/09/2014 Office visit Heena Dumont MD 09/25/2014 Office visit Heean Dumont MD 09/17/2014 Office visit Kaylynn Mendez [facility] 09/04/2014 Office visit Heena Dumont MD 08/28/2014 Office visit Kaylynn Mendez [facility] 08/23/2014 [facility] John Hoskins MD 08/01/2014 Office visit Kaylynn Mendez [facility] 07/29/2014 Office visit Heena Dumont MD 07/25/2014 Nurse visit Heena Dumont MD 07/17/2014 Office visit Kaylynn Mendez [facility] 07/11/2014 Office visit Heena Dumont MD 07/01/2014 Office visit Heena Dumont MD 06/25/2014 Office visit Kaylynn Mendez [facility] 06/12/2014 Office visit Kaylynn Mendez [facility] 06/06/2014 Office visit Kaylynn Mendez [facility] 05/27/2014 Office visit Heena Dumont MD 04/20/2014 Office visit Yesica Falcon [facility] 03/29/2014 Office visit Na Jones [facility] 03/15/2014 Office visit Heena Dumont MD 2014 Office visit Heena Dumont MD 2014 [facility] John Hoskins MD 02/27/2014 Nurse visit Heena Dumont MD 02/13/2014 Office visit Lena El [facility] 02/07/2014 Office visit Heena Dumont MD 02/03/2014 Office visit Na Jones [facility] 01/30/2014 Office visit Kaylynn Mendez [facility] 01/24/2014 Office visit Sundeep Russell [facility] 01/16/2014 Office visit Kaylynn Mendez [facility] 01/10/2014 Nurse visit Kaylynn Mendez [facility] 01/08/2014 Office visit Kaylynn Walker [facility] 12/05/2013 Office visit Kaylynn Walker [facility] 11/21/2013 Office visit Kaylynn Mendez [facility] 10/23/2013 Office visit Brittni Yanez [facility] 10/17/2013 Nurse visit Heena Dumont MD 10/12/2013 Office visit Kaylynn Mendez [facility] 10/02/2013 Office visit eHena Dumont MD 09/20/2013 Nurse visit Kaylynn Mendez [facility] 09/20/2013 Voided Heena Dumont MD 09/14/2013 Office visit Kaylynn Mendez [facility] 09/05/2013 Office visit Sundeep Russell [facility] 09/04/2013 Nurse visit Kaylynn Walker [facility] 08/31/2013 Office visit Kaylynn Mendez [facility] 08/23/2013 Office visit Heena Dumont MD 08/10/2013 Office visit Kaylynn Walker [facility] 07/25/2013 Office visit Kaylynn Walker [facility] 07/18/2013 Office visit Kaylynn Walker [facility] 07/12/2013 Office visit Kaylynn Walker [facility] 06/28/2013 Nurse visit Kaylynn Walker [facility] 06/14/2013 Nurse visit Kaylynn Walker [facility] 06/08/2013 Nurse visit Kaylynn Walker [facility] 05/31/2013 Nurse visit Chadd Norris DO 05/18/2013 Office visit Terese Davidson MD 05/16/2013 Office visit Kaylynn Walker [facility] 05/09/2013 Office visit Kaylynn Walker [facility] 04/29/2013 [facility] John Hoskins MD 04/25/2013 Nurse visit Kaylynn Walker [facility] 04/17/2013 Office visit Kaylynn Walker [facility] 04/03/2013 Nurse visit Kaylynn Walker [facility] 04/03/2013 Office visit Terese Davidson MD 03/28/2013 Office visit Sundeep Russell [facility] 03/21/2013 Office visit Kaylynn Walker [facility] 03/20/2013 Office visit Terese Davidson MD 03/14/2013 Nurse visit Kaylynn Walker [facility] 03/05/2013 Nurse visit Kaylynn Mendez [facility] 02/19/2013 Office visit Terese Davidson MD 02/16/2013 Nurse visit Kaylynn Walker [facility] 02/09/2013 Office visit Sundeep Russell [facility] 02/08/2013 Nurse visit Kaylynn Walker [facility] 02/01/2013 Nurse visit Kaylynn Mendez [facility] 01/26/2013 Nurse visit Sabrina Andrea TOWERMAN 01/25/2013 Office visit Kaylynn Andrea [facility] 01/22/2013 Office visit Yoan Castaneda MD 01/18/2013 Nurse visit Kaylynn Walker [facility] 01/11/2013 Nurse visit Kaylynn Walker [facility] 01/05/2013 Nurse visit Kaylynn Walker [facility] 12/29/2012 Office visit Kaylynn Walker [facility] 11/27/2012 Office visit Kaylynn Mendez [facility] 11/08/2012 Office visit Odell Tierney MD 11/08/2012 Voided Odell Tierney MD 11/07/2012 Office visit Kaylynn Mendez [facility] 10/31/2012 [facility] John Hoskins MD 10/31/2012 Office visit Kaylynn Walker [facility] 10/19/2012 Office visit Genoveva Ayala [facility] 10/10/2012 Office visit Kaylynn Mendez [facility] 10/03/2012 Office visit Kaylynn Walker [facility] 09/26/2012 Office visit Kaylynn Walker [facility] 09/06/2012 Office visit Kaylynn Mendez [facility] 09/06/2012 Office visit Odell Tierney MD 08/31/2012 Voided Kaylynn Mendez [facility] 07/28/2012 Office visit Kaylynn Mendez [facility] 07/27/2012 Office visit David Joyner DO 07/20/2012 [facility] David Joyner DO 07/13/2012 [facility] David Joyner DO 07/11/2012 Office visit Kaylynn Mendez [facility] 06/27/2012 [facility] Odell Tierney MD 06/21/2012 Office visit David Joyner DO 06/21/2012 Office visit Odell Tierney MD 06/20/2012 Office visit Brittni Yanez [facility] 06/06/2012 Office visit Odell Tierney MD 05/03/2012 Office visit Kaylynn Mendez [facility] 04/28/2012 Office visit Brittni Tomy Yanez [facility] 04/11/2012 Office visit Kaylynn Mendez [facility] 04/06/2012 [facility] Hos[facility] MD 03/30/2012 Office visit Kaylynn Walker [facility] 03/15/2012 Office visit Kaylynn Walker [facility] 03/15/2012 Office visit Odell Tierney MD 02/09/2012 Office visit Kaylynn Walker [facility] 12/23/2011 Office visit Kaylynn Walker [facility] 11/02/2011 Office visit Kaylynn Walker [facility] 10/14/2011 Office visit Kaylynn Walker [facility] 09/27/2011 Office visit Kaylynn Walker [facility] 08/19/2011 [facility] Hoskins MD 08/18/2011 [facility] Hoskins MD 08/18/2011 Office visit Kaylynn Mendez [facility] 08/02/2011 Office visit Kaylynn Walker [facility] 07/08/2011 Office visit Kaylynn Mendez [facility] 07/05/2011 Office visit Odell Tierney MD 06/15/2011 Office visit Kaylynn Mendez [facility] 05/14/2011 Office visit Kaylynn Andrea [facility] 05/11/2011 Office visit Odell Tierney MD 04/28/2011 Office visit Kaylynn Mendez [facility] 03/02/2011 Office visit Chadd Norris DO 02/17/2011 [...]
--- OUTSIDE RECORDS SUMMARY | 2018-05-09 16:27 | XMS REPORT ---
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 Name Role Phone Heena Dumont PCP Allergies and Adverse Reactions Name Reaction Notes Aspirin Methadone Ultram Vicodin Plan of Treatment Planned Activity Comments Planned Date Planned Time Plan/Goal X-RAY EXAM NECK SPINE 2-3 VW 03/21/2015 12:00 AM ELECTROCARDIOGRAM COMPLETE 10/31/2012 12:00 AM [...] once daily at bedtime for 30 days promethazine 25 mg oral tablet 02/25/2015 TAKE 1 TABLET BY MOUTH TWICE DAILY baclofen 10 mg oral tablet 03/12/2015 04/11/2015 1 TABLET BY ORAL ROUTE BEFORE BED PRN MUSCLE SPASM oxycodone 5 mg oral tablet 03/12/2015 04/11/2015 take 1 tablet by oral route every 12 hours for 30 days simvastatin 20 mg oral tablet take 1 [...] by oral route only when taking lasix. Name Start Date Expiration Date SIG Comments [...] 08/27/2014 use as directed for 99 days [place] 5-325 mg oral tablet 06/17/2014 06/27/2014 take [...] a day as needed for 30 days jumyaeju-ufobjqmas-GD 3.5-10,000-1 mg/mL-unit/mL-% otic drops,suspension 201401/08/2015 instill 4 drops into affected ear(s) by otic route 3 times per day for 7 days rx completed clobetasol-emollient 0.05 % topical cream 02/13/2015 02/27/2015 apply to affected area(s) by topical route daily for 14 days Discontinued Name Start Date Discontinued Date [...] HC BMI BSA BMI Percentile O2 Sat(%) 03/21/2015 11:11:00 AM 110 mmHg 64 mmHg [...] Reviewed 02/13/2015 12:00 AM Tick Panel Returned 04/28/2011 12:00 AM THER/PROPH/DIAG INJ SC/IM Reviewed 04/28/2011 12:00 AM Decadron 1 mg NDC#[id number] (Jr) Reviewed 04/28/2011 12:00 AM Depo-Medrol 80 mg NDC#[id number]-Yxjcelvs Reviewed 05/11/2011 12:00 AM N BLOCK INJ OCCIPITAL Reviewed 05/11/2011 12:00 AM Kenalog Qj-[address]-20 ANNA Reviewed 06/15/2011 12:00 AM COMPLETE CBC W/AUTO DIFF WBC Returned 06/15/2011 12:00 AM COMPREHEN METABOLIC PANEL Returned 07/08/2011 12:00 AM THER/PROPH/DIAG INJ SC/IM Reviewed 07/08/2011 12:00 AM Toradol,15mg ND#[id number], [place] Reviewed 07/08/2011 12:00 AM Phenergan 50 Mg Im Nd 9017-5238-13 ALLIE Hoskins Reviewed 08/02/2011 12:00 AM THER/PROPH/DIAG INJ SC/IM Reviewed 08/02/2011 12:00 AM Decadron 1 mg NDC#[id number] (Jr) Reviewed 08/02/2011 12:00 AM Depo-Medrol 80 mg NDC#[id number]-Bdtxpcmi Reviewed 09/27/2011 12:00 AM THER/PROPH/DIAG INJ SC/IM Reviewed 09/27/2011 12:00 AM Depo-Medrol 80 mg NDC#[id number]-Ollpopcf Reviewed 10/14/2011 12:00 AM X-RAY EXAM OF ABDOMEN Returned 10/14/2011 12:00 AM URINALYSIS AUTO W/O SCOPE Reviewed 12/23/2011 12:00 AM THER/PROPH/DIAG INJ SC/IM Reviewed 12/23/2011 12:00 AM Decadron 1 mg NDC#[id number] (Jr) Reviewed 12/23/2011 12:00 AM Depo-Medrol 80 mg NDC#[id number]-Umotgupa Reviewed 02/09/2012 12:00 AM THER/PROPH/DIAG INJ SC/IM Reviewed 02/09/2012 12:00 AM Decadron 1 mg NDC#[id number] (Jr) Reviewed 02/09/2012 12:00 AM Depo-Medrol 80 mg NDC#[id number]-Bptrmpzy Reviewed 03/15/2012 12:00 AM N BLOCK INJ OCCIPITAL Reviewed 03/15/2012 12:00 AM Kenalog Du-[address]-20 ANNA Reviewed 04/11/2012 12:00 AM COMPLETE CBC W/AUTO DIFF WBC Returned 04/11/2012 12:00 AM COMPREHEN METABOLIC PANEL Returned 04/11/2012 12:00 AM LIPID PANEL Returned 04/11/2012 12:00 AM ASSAY THYROID STIM HORMONE Returned 06/20/2012 12:00 AM THER/PROPH/DIAG INJ SC/IM Reviewed 06/20/2012 12:00 AM Decadron, Per 1 Mg NDC# [address]-08 Reviewed 06/20/2012 12:00 AM Depo-Medrol, Per 80 Mg ND#0190-2709-62 Reviewed 09/06/2012 12:00 AM N BLOCK INJ OCCIPITAL Reviewed 09/06/2012 12:00 AM Kenalog Qy-[address]-20 ANNA Reviewed 09/06/2012 12:00 AM X-RAY EXAM RIBS UNI 2 VIEWS Returned 09/26/2012 12:00 AM THER/PROPH/DIAG INJ SC/IM Reviewed 09/26/2012 12:00 AM Decadron, Per 1 Mg NDC# [address]-48 Reviewed 09/26/2012 12:00 AM Depo-Medrol, Per 80 Mg NDC#1235-0950-17 Reviewed 10/03/2012 12:00 AM URINALYSIS AUTO W/O SCOPE Reviewed 10/03/2012 12:00 AM THER/PROPH/DIAG INJ SC/IM Reviewed 10/03/2012 12:00 AM Toradol 60 Mg NDC#4522-4933-07 Reviewed 10/03/2012 12:00 AM Phenergan, 25Mg NDC#3610-6836-11 Reviewed 10/19/2012 12:00 AM N BLOCK INJ OCCIPITAL Reviewed 10/19/2012 12:00 AM Kenalog, Per 10 Mg [facility]#4354-2507-14 Reviewed 10/19/2012 12:00 AM Toradol 30 Mg [facility]#3061-2670-30 Reviewed 10/19/2012 12:00 AM THER/PROPH/DIAG INJ SC/IM Reviewed 10/31/2012 12:00 AM COMPLETE CBC W/AUTO DIFF WBC Returned 10/31/2012 12:00 AM COMPREHEN METABOLIC PANEL Returned 10/31/2012 12:00 AM LIPID PANEL Returned 11/03/2012 12:[address] THORAX W/O & W/DYE Returned 11/08/2012 12:00 AM N BLOCK INJ OCCIPITAL Reviewed 11/08/2012 12:00 AM Kenalog Ux-[address]-20 ANNA Reviewed 11/27/2012 12:00 AM COMPLETE CBC [...] 01/25/2013 12:00 AM Decadron, Per 1 Mg [facility]# [address]-29 Reviewed 01/25/2013 12:00 AM Depo-Medrol, Per 80 Mg [facility]#7967-4377-11 Reviewed 01/26/2013 12:00 AM IMMUNOTHERAPY INJECTIONS Returned [...] 05/16/2013 12:00 AM Decadron, Per 1 Mg [facility]# [address]-41 Reviewed 05/16/2013 12:00 AM Depo-Medrol, Per 80 Mg [facility]#5905-3419-21 Reviewed 05/31/2013 12:00 AM IMMUNOTHERAPY INJECTIONS Reviewed 06/08/2013 12:00 AM IMMUNOTHERAPY INJECTIONS Reviewed 06/14/2013 12:00 AM IMMUNOTHERAPY INJECTIONS Reviewed 06/28/2013 12:00 AM IMMUNOTHERAPY INJECTIONS Reviewed 07/12/2013 12:00 AM X-RAY EXAM RIBS UNI 2 VIEWS Returned 07/18/2013 12:00 AM Toradol 60 Mg [facility]#4313-8460-92 Reviewed 07/18/2013 12:00 AM THER/PROPH/DIAG INJ SC/IM Reviewed 08/23/2013 12:00 AM COMPLETE CBC W/AUTO DIFF WBC Reviewed 08/23/2013 12:00 AM COMPREHEN METABOLIC PANEL Reviewed 08/23/2013 12:00 AM LIPID PANEL Reviewed 08/31/2013 12:00 AM X-RAY EXAM OF LOWER LEG Returned 09/04/2013 12:00 AM IMMUNOTHERAPY INJECTIONS Reviewed 09/14/2013 12:00 AM THER/PROPH/DIAG INJ SC/IM Reviewed 09/14/2013 12:00 AM Decadron, Per 1 Mg [facility]# [address]-17 Reviewed 09/14/2013 12:00 AM Depo-Medrol, Per 80 Mg [facility]#4802-1083-89 Reviewed 09/20/2013 12:00 AM IMMUNOTHERAPY INJECTIONS Reviewed [...] INJ OCCIPITAL Reviewed 12/10/2009 12:00 AM Kenalog Dc-[address]-20 ANNA Reviewed 12/16/2009 12:00 AM HIV-1ANTIBODY Reviewed 12/16/2009 12:00 AM COMPLETE CBC W/AUTO DIFF WBC Reviewed 12/16/2009 12:00 AM METABOLIC PANEL TOTAL CA Reviewed 12/16/2009 12:00 AM Type and screen Reviewed 12/16/2009 12:00 AM PROTHROMBIN TIME Reviewed 12/16/2009 12:00 AM THROMBOPLASTIN TIME PARTIAL Reviewed 03/18/2010 12:00 AM DRAIN/INJ JOINT/BURSA W/O US Reviewed 03/18/2010 12:00 AM Kenalog Oh-[address]-20 ANNA Reviewed 11/21/2013 12:00 AM RADEX HAND MINIMUM 3 VIEWS Returned 06/03/2010 12:00 AM INJ TRIGGER POINT 1/2 MUSCL Reviewed 06/03/2010 12:00 AM Kenalog per 10Mg -[facility]#[address]-48(Niall) Reviewed 12/05/2013 12:00 AM COMPLETE CBC W/AUTO [...] 07/23/2010 12:00 AM Kenalog per 10Mg Im-[facility]#[address]-71(Niall) Reviewed 2014 12:00 AM COMPLETE CBC W/AUTO [...] INJ OCCIPITAL Reviewed 10/01/2010 12:00 AM Kenalog Ag-[address]-20 ANNA Reviewed 07/25/2014 12:00 AM THER/PROPH/DIAG INJ [...] 0.60 mg/dLCALCIUM 10.90 mg/ dLeGFR >60 mL/min/1.73 [id number] 45.0 U/L 08/31/2013 10:54 AM GLUCOSE 255.0 [...] 0.40 mg/ dLCALCIUM 10.60 mg/dLeGFR >60 mL/min/1.73 [id number] 369.0 mg/ dLCHOLESTEROL 153.0 mg/dLHDL 26.0 mg/dLLDL [...] BILI 0.30 mg/dLCALCIUM 10.0 mg/dLeGFR >60 mL/min/1.73 [id number] YELLOW APPEARANCE CLEAR SPEC GRAV 1.010 pH 5.5 PROTEIN NEGATIVE GLUCOSE NEGATIVE KETONE NEGATIVE BILIRUBIN NEGATIVE BLOOD NEGATIVE NITRITE NEGATIVE LEUK SCREEN NEGATIVE Est Avg Glucose 134.1 mg/dLMICROALBUMIN UR <0.5 MG/DL 02/13/2015 4:38 PM RMSF, IgG, EIA Negative [facility] Spotted Fever,IgM 0.51 E. chaffeensis ([facility]) [...] 188.0 mg/dLTSH 0.660 uIU/mLVITAMIN D 45.50 ng/mL History Of Immunizations Name Date Admin Mfg Name Mfg Code Trade Name Lot# Route Inj Vis Given Vis Pub CVX Influenza 03/30/2011 Not Entered NE Not Entered Not Entered Not Entered 03/31/2011 05/30/2015 141 Influenza 04/24/2014 sanofi pasteur PMC Fluzone [id number] Intramuscular Left Upper Arm 02/27/2014 01/15/2014 141 Influenza 02/13/2015 sanofi pasteur PMC Fluzone [id number] Intramuscular Left Deltoid 02/13/2015 01/03/2015 140 History [...] Muscle Spasm Feb 6 2011 1:58PM Headache Jun 9 2011 1:38PM Heart Sound Abnormality b 9 2011 1:38PM Upper Respiratory Infections Aug [...] both lower extremities Mar 21 2015 11:15AM Payers Insurance Name Company Name Plan Name Plan Number Policy Number Policy Group Number Start Date Medicare Part A Medicare Part A [id number] N/A [facility] Plan [facility] Comm [id number] N/A [place] [facility] [place] [facility] - C [id number] May [facility] Comm Plan of [id number] Wednesday, 2012 Medicare Part B Medicare Of [place] [id number] Monday, 2000 [place] [facility] [employer] [facility] [place] [employer] [facility] [id number] Tuesday, 2009 History of Encounters Visit Date Visit Type Provider 03/21/2015 Office visit Heena Dumont MD 03/12/2015 Office visit Kaylynn Mendez APRN 02/26/2015 Office visit Brittni Yanez APRN 02/13/2015 Office visit Heena Dumont MD 01/15/2015 Office visit Brittni Yanez OVERCOIL STEPPER 01/13/2015 Office visit Heena Dumont MD 01/08/[address] Carol Fowler MD 01/01/2015 Office visit Brittni Yanez APRN 12/13/2014 Office visit Heena Dumont MD 11/27/2014 Office visit Kaylynn Mendez APRN 11/14/2014 Office visit Heena Dumont MD 10/18/2014 Office visit Heena Dumont MD 10/17/2014 [facility] Eliseo Hoskins MD 10/09/2014 Office visit Heena Dumont MD 09/25/2014 Office visit Heena Dumont MD 09/17/2014 Office visit Kaylynn Mendez OVERCOIL STEPPER 09/04/2014 Office visit Heena Dumont MD 08/28/2014 Office visit Kaylynn Mendez OVERCOIL STEPPER 08/23/2014 [facility] John Hoskins MD 08/01/2014 Office visit Kaylynn Mendez OVERCOIL STEPPER 07/29/2014 Office visit Heena Dumont MD 07/25/2014 Nurse visit Heena Dumont MD 07/17/2014 Office visit Kaylynn Mendez OVERCOIL STEPPER 07/11/2014 Office visit Heena Dumont MD 07/01/2014 Office visit Heena Dumont MD 06/25/2014 Office visit Kaylynn Mendez OVERCOIL STEPPER 06/12/2014 Office visit Kaylynn Mendez OVERCOIL STEPPER 06/06/2014 Office visit Kaylynn Mendez OVERCOIL STEPPER 05/27/2014 Office visit Heena Dumont MD 04/20/2014 Office visit eYsica Falcon OVERCOIL STEPPER 03/29/2014 Office visit Na Jones OVERCOIL STEPPER 03/15/2014 Office visit Heena Dumont MD 2014 Office visit Heena Dumont MD 2014 [facility] Eliseo Hoskins MD 02/27/2014 Nurse visit Heena Dumont MD 02/13/2014 Office visit Lena El OVERCOIL STEPPER 02/07/2014 Office visit Heena Dumont MD 02/03/2014 Office visit Na Jones OVERCOIL STEPPER 01/30/2014 Office visit Kaylynn Mendez OVERCOIL STEPPER 01/24/2014 Office visit Sundeep Russell OVERCOIL STEPPER 01/16/2014 Office visit Kaylynn Mendez OVERCOIL STEPPER 01/10/2014 Nurse visit Kaylynn Mendez OVERCOIL STEPPER 01/08/2014 Office visit Kaylynn Mendez OVERCOIL STEPPER 12/05/2013 Office visit Kaylynn Mendez OVERCOIL STEPPER 11/21/2013 Office visit Kaylynn Walker OVERCOIL STEPPER 10/23/2013 Office visit Brittni Yanez OVERCOIL STEPPER 10/17/2013 Nurse visit Heena Dumont MD 10/12/2013 Office visit Kaylynn Mendez OVERCOIL STEPPER 10/02/2013 Office visit Heena Dumont MD 09/20/2013 Nurse visit Kaylynn Mendez OVERCOIL STEPPER 09/20/2013 Voided Heena Dumont MD 09/14/2013 Office visit Kaylynn Mendez OVERCOIL STEPPER 09/05/2013 Office visit Sundeep Russell OVERCOIL STEPPER 09/04/2013 Nurse visit Kaylynn Mendez OVERCOIL STEPPER 08/31/2013 Office visit Kaylynn Mendez OVERCOIL STEPPER 08/23/2013 Office visit Heena Dumont MD 08/10/2013 Office visit Kaylynn Walker OVERCOIL STEPPER 07/25/2013 Office visit Kaylynn Walker OVERCOIL STEPPER 07/18/2013 Office visit Kaylynn Walker OVERCOIL STEPPER 07/12/2013 Office visit Kaylynn Walker OVERCOIL STEPPER 06/28/2013 Nurse visit Kaylynn Walker OVERCOIL STEPPER 06/14/2013 Nurse visit Kaylynn Walker OVERCOIL STEPPER 06/08/2013 Nurse visit Kaylynn Walker OVERCOIL STEPPER 05/31/2013 Nurse visit Chadd Norris DO 05/18/2013 Office visit Terese Davidson MD 05/16/2013 Office visit Kaylynn Walker OVERCOIL STEPPER 05/09/2013 Office visit Kaylynn Walker OVERCOIL STEPPER 04/29/2013 [facility] John Hoskins MD 04/25/2013 Nurse visit Kaylynn Walker OVERCOIL STEPPER 04/17/2013 Office visit Kaylynn Walker OVERCOIL STEPPER 04/03/2013 Nurse visit Kaylynn Walker OVERCOIL STEPPER 04/03/2013 Office visit Terese Davidson MD 03/28/2013 Office visit Sundeep Russell OVERCOIL STEPPER 03/21/2013 Office visit Kaylynn Mendez OVERCOIL STEPPER 03/20/2013 Office visit Terese Davidson MD 03/14/2013 Nurse visit Kaylynn Walker OVERCOIL STEPPER 03/05/2013 Nurse visit Kaylynn Walker OVERCOIL STEPPER 02/19/2013 Office visit Terese Davidson MD 02/16/2013 Nurse visit Kaylynn Walker OVERCOIL STEPPER 02/09/2013 Office visit Sundeep Russell OVERCOIL STEPPER 02/08/2013 Nurse visit Kaylynn Walker OVERCOIL STEPPER 02/01/2013 Nurse visit Kaylynn Walker OVERCOIL STEPPER 01/26/2013 Nurse visit Sabrina Mendez [employer] 01/25/2013 Office visit Kaylynn Walker OVERCOIL STEPPER 01/22/2013 Office visit Yoan Castaneda MD 01/18/2013 Nurse visit Kaylynn Walker OVERCOIL STEPPER 01/11/2013 Nurse visit Kaylynn Walker OVERCOIL STEPPER 01/05/2013 Nurse visit Kaylynn Walker OVERCOIL STEPPER 12/29/2012 Office visit Kaylynn Walker OVERCOIL STEPPER 11/27/2012 Office visit Kaylynn Walker OVERCOIL STEPPER 11/08/2012 Office visit Odell Tierney MD 11/08/2012 Voided Odell Tierney MD 11/07/2012 Office visit Kaylynn Walker OVERCOIL STEPPER 10/31/2012 [facility] John Hoskins MD 10/31/2012 Office visit Kaylynn Walker OVERCOIL STEPPER 10/19/2012 Office visit eGnoveva Ayala OVERCOIL STEPPER 10/10/2012 Office visit Kaylynn Walker OVERCOIL STEPPER 10/03/2012 Office visit Kaylynn Walker OVERCOIL STEPPER 09/26/2012 Office visit Kaylynn Mendez OVERCOIL STEPPER 09/06/2012 Office visit Kaylynn Mendez OVERCOIL STEPPER 09/06/2012 Office visit Odell Tierney MD 08/31/2012 Voided Kaylynn Mendez OVERCOIL STEPPER 07/28/2012 Office visit Kaylynn Andrea OVERCOIL STEPPER 07/27/2012 Office visit David Jazieltom DO 07/20/2012 Hospital David Joyner DO 07/13/2012 Hospital David Joyner DO 07/11/2012 Office visit Kaylynn Mendez OVERCOIL STEPPER 06/27/2012 Hospital Odell Tierney MD 06/21/2012 Office visit David Joyner DO 06/21/2012 Office visit Odell Tierney MD 06/20/2012 Office visit Brittni Yanze OVERCOIL STEPPER 06/06/2012 Office visit Odell Tierney MD 05/03/2012 Office visit Kaylynn Mendez OVERCOIL STEPPER 04/28/2012 Office visit Brittni Yanez OVERCOIL STEPPER 04/11/2012 Office visit Kaylynn Mendez OVERCOIL STEPPER 04/06/2012 [facility] John Hoskins MD 03/30/2012 Office visit Kaylynn Mendez OVERCOIL STEPPER 03/15/2012 Office visit Kaylynn Mendez OVERCOIL STEPPER 03/15/2012 Office visit Odell Tierney MD 02/09/2012 Office visit Kaylynn Mendez OVERCOIL STEPPER 12/23/2011 Office visit Kaylynn Mendez OVERCOIL STEPPER 11/02/2011 Office visit Kaylynn Mendez OVERCOIL STEPPER 10/14/2011 Office visit Kaylynn Mendez OVERCOIL STEPPER 09/27/2011 Office visit Kaylynn Mendez OVERCOIL STEPPER 08/19/2011 [facility] John Hoskins MD 08/18/2011 [facility] John Hoskins MD 08/18/2011 Office visit Kaylynn Mendez OVERCOIL STEPPER 08/02/2011 Office visit Kaylynn Mendez OVERCOIL STEPPER 07/08/2011 Office visit Kaylynn Mendez OVERCOIL STEPPER 07/05/2011 Office visit Odell Tierney MD 06/15/2011 Office visit Kaylynn Mendez OVERCOIL STEPPER 05/14/2011 Office visit Kaylynn Mendez OVERCOIL STEPPER 05/11/2011 Office visit Odell Tierney MD 04/28/2011 Office visit Kaylynn Mendez OVERCOIL STEPPER 03/02/2011 Office visit Chadd Norris DO 02/17/2011 [...]
--- OUTSIDE RECORDS SUMMARY | 2018-05-09 16:31 | XMS REPORT ---
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 [employer] Tequila Lancets 33 gauge miscellaneous misc 01/21/2016 use as directed [employer] miscellaneous strip 01/21/2016 07/19/2016 Test 2x daily, [...] 08/27/2014 use as directed for 99 days Kyle 5-325 mg oral tablet 06/17/2014 06/27/2014 take [...] a day as needed for 30 days gwodogcp-pecnzjwqe-HM 3.5-10,000-1 mg/mL-unit/mL-% otic drops,suspension 201401/08/2015 instill 4 [...] Reviewed 04/28/2011 12:00 AM Decadron 1 mg ND#[id number] (Rj) Reviewed 04/28/2011 12:00 AM Depo-Medrol 80 mg ND#[id number]-Zlaezigc Reviewed 09/02/2015 12:00 AM Toradol 60 Mg [facility]#3468-3576-37 Reviewed 09/02/2015 12:00 AM Phenergan, Up to 50 Mg [facility] Medicaid Reviewed 09/16/2015 12:00 AM Toradol 60 Mg [facility]#0909-6047-07 Reviewed 09/16/2015 12:00 AM Phenergan Up to 50 mg R[facility] Medicare Reviewed 05/11/2011 12:00 AM N BLOCK INJ OCCIPITAL Reviewed 05/11/2011 12:00 AM Kenalog Xj-[address]-20 ANNA Reviewed 11/13/2015 12:00 AM ASSAY OF [...] AM Toradol,15mg [facility]#[id number], [place] Reviewed 07/08/2011 12:00 AM Phenergan 50 Mg Im [facility] [id number] [place] Reviewed 01/21/2016 12:00 AM ECG MONIT/REPRT UP TO 48 HRS Returned 08/02/2011 12:00 AM THER/PROPH/DIAG INJ SC/IM Reviewed 08/02/2011 12:00 AM Decadron 1 mg [facility]#[id number] (Jr) Reviewed 08/02/2011 12:00 AM Depo-Medrol 80 mg [facility]#[id number]-Svwkkihi Reviewed 03/05/2016 12:00 AM COMPLETE CBC W/AUTO DIFF WBC Returned 03/05/2016 12:00 AM STREP A ASSAY W/OPTIC Returned 03/05/2016 12:00 AM C-REACTIVE PROTEIN Returned 03/18/2016 12:00 AM [facility] MEDICARE - flu vaccine administration Reviewed 03/18/2016 12:00 AM INFLUENZA VACCINE QUADRIVALENT 3 YRS PLUS IM Reviewed 09/27/2011 12:00 AM THER/PROPH/DIAG INJ SC/IM Reviewed 09/27/2011 12:00 AM Depo-Medrol 80 mg NDC#[id number]-Fvryeieh Reviewed 10/14/2011 12:00 AM X-RAY EXAM OF ABDOMEN Returned 10/14/2011 12:00 AM URINALYSIS AUTO W/O SCOPE Reviewed 12/23/2011 12:00 AM THER/PROPH/DIAG INJ SC/IM Reviewed 12/23/2011 12:00 AM Decadron 1 mg NDC#[id number] (Jr) Reviewed 12/23/2011 12:00 AM Depo-Medrol 80 mg NDC#[id number]-Fdhljogh Reviewed 02/09/2012 12:00 AM THER/PROPH/DIAG INJ SC/IM Reviewed 02/09/2012 12:00 AM Decadron 1 mg NDC#[id number] (Jr) Reviewed 02/09/2012 12:00 AM Depo-Medrol 80 mg NDC#[id number]-Idzeqfux Reviewed 03/15/2012 12:00 AM N BLOCK INJ OCCIPITAL Reviewed 03/15/2012 12:00 AM Kenalog Wt-[address]-20 ANNA Reviewed 04/11/2012 12:00 AM COMPLETE CBC W/AUTO DIFF WBC Returned 04/11/2012 12:00 AM COMPREHEN METABOLIC PANEL Returned 04/11/2012 12:00 AM LIPID PANEL Returned 04/11/2012 12:00 AM ASSAY THYROID STIM HORMONE Returned 06/20/2012 12:00 AM THER/PROPH/DIAG INJ SC/IM Reviewed 06/20/2012 12:00 AM Decadron, Per 1 Mg ND# [address]-48 Reviewed 06/20/2012 12:00 AM Depo-Medrol, Per 80 Mg NDC#0240-8722-62 Reviewed 09/06/2012 12:00 AM N BLOCK INJ OCCIPITAL Reviewed 09/06/2012 12:00 AM Kenalog Ce-[address]-20 ANNA Reviewed 09/06/2012 12:00 AM X-RAY EXAM RIBS UNI 2 VIEWS Returned 09/26/2012 12:00 AM THER/PROPH/DIAG INJ SC/IM Reviewed 09/26/2012 12:00 AM Decadron, Per 1 Mg [facility] [address]-33 Reviewed 09/26/2012 12:00 AM Depo-Medrol, Per 80 Mg [facility]#6686-3658-05 Reviewed 10/03/2012 12:00 AM URINALYSIS AUTO W/O SCOPE Reviewed 10/03/2012 12:00 AM THER/PROPH/DIAG INJ SC/IM Reviewed 10/03/2012 12:00 AM Toradol 60 Mg [facility]#5944-7168-79 Reviewed 10/03/2012 12:00 AM Phenergan, 25Mg [facility]#4012-4928-13 Reviewed 10/19/2012 12:00 AM N BLOCK INJ OCCIPITAL Reviewed 10/19/2012 12:00 AM Kenalog, Per 10 Mg [facility]#4056-7659-83 Reviewed 10/19/2012 12:00 AM Toradol 30 Mg [facility]#4684-6229-91 Reviewed 10/19/2012 12:00 AM THER/PROPH/DIAG INJ SC/IM Reviewed 10/31/2012 12:00 AM COMPLETE CBC W/AUTO DIFF WBC Returned 10/31/2012 12:00 AM COMPREHEN METABOLIC PANEL Returned 10/31/2012 12:00 AM LIPID PANEL Returned 11/03/2012 12:[address] THORAX W/O & W/DYE Returned 11/08/2012 12:00 AM N BLOCK INJ OCCIPITAL Reviewed 11/08/2012 12:00 AM Kenalog Fl-[address]-20 ANNA Reviewed 11/27/2012 12:00 AM COMPLETE CBC [...] Mg [facility]# [address]-44 Reviewed 01/25/2013 12:00 AM Depo-Medrol, Per 80 Mg [facility]#3859-3372-96 Reviewed 01/26/2013 12:00 AM IMMUNOTHERAPY INJECTIONS Returned [...] Mg [facility]# [address]-16 Reviewed 05/16/2013 12:00 AM Depo-Medrol, Per 80 Mg [facility]#0203-7604-31 Reviewed 05/31/2013 12:00 AM IMMUNOTHERAPY INJECTIONS Reviewed 06/08/2013 12:00 AM IMMUNOTHERAPY INJECTIONS Reviewed 06/14/2013 12:00 AM IMMUNOTHERAPY INJECTIONS Reviewed 06/28/2013 12:00 AM IMMUNOTHERAPY INJECTIONS Reviewed 07/12/2013 12:00 AM X-RAY EXAM RIBS UNI 2 VIEWS Returned 07/18/2013 12:00 AM Toradol 60 Mg [facility]#3390-8282-22 Reviewed 07/18/2013 12:00 AM THER/PROPH/DIAG INJ SC/IM [...] Mg [facility]# [address]-70 Reviewed 09/14/2013 12:00 AM Depo-Medrol, Per 80 Mg [facility]#9698-0788-78 Reviewed 09/20/2013 12:00 AM IMMUNOTHERAPY INJECTIONS Reviewed [...] INJ OCCIPITAL Reviewed 12/10/2009 12:00 AM Kenalog Xd-[address]-20 ANNA Reviewed 12/16/2009 12:00 AM HIV-1ANTIBODY Reviewed 12/16/2009 12:00 AM COMPLETE CBC W/AUTO DIFF WBC Reviewed 12/16/2009 12:00 AM METABOLIC PANEL TOTAL CA Reviewed 12/16/2009 12:00 AM Type and screen Reviewed 12/16/2009 12:00 AM PROTHROMBIN TIME Reviewed 12/16/2009 12:00 AM THROMBOPLASTIN TIME PARTIAL Reviewed 03/18/2010 12:00 AM DRAIN/INJ JOINT/BURSA W/O US Reviewed 03/18/2010 12:00 AM Kenalog Wd-[address]-20 ANNA Reviewed 11/21/2013 12:00 AM RADEX HAND MINIMUM 3 VIEWS Returned 06/03/2010 12:00 AM INJ TRIGGER POINT 1/2 MUSCL Reviewed 06/03/2010 12:00 AM Kenalog per 10Mg Im-[facility]#[address]-60(Niall) Reviewed 12/05/2013 12:00 AM COMPLETE CBC W/AUTO [...] Reviewed 07/23/2010 12:00 AM Kenalog per 10Mg Im-Ndc#[address]-86(Niall) Reviewed 2014 12:00 AM COMPLETE CBC W/AUTO [...] INJ OCCIPITAL Reviewed 10/01/2010 12:00 AM Kenalog Zy-[address]-20 ANNA Reviewed 07/25/2014 12:00 AM THER/PROPH/DIAG INJ [...] Quant,IgM <0.80 RMSF , IgG, EIA Negative [facility] Spotted Fever,IgM 0.51 E. chaffeensis (HME) IgGTiter [...] 141 Influenza 04/24/2014 sanofi pasteur PMC Fluzone [id number] Intramuscular Left Upper Arm 02/27/2014 01/15/2014 141 Influenza 02/13/2015 sanofi pasteur PMC Fluzone [id number] Intramuscular Left Deltoid 02/13/2015 01/03/2015 140 Tdap 06/06/2015 [employer] SKB BOOSTRIX [id number] Intramuscular Left Deltoid 06/06/2015 07/23/2014 115 Influenza 03/18/2016 sanofi pasteur PMC Fluzone [id number] Intramuscular Left Deltoid 03/17/2016 01/03/2015 141 History [...] Start Date Medicare Part A Medicare RHC [id number] N/A [facility] Comm [id number] N/A Medicare Part A Medicare - Lab/Xray [id number] N/A Medicare Part B Medicare Of [place] [id number] Monday, February 28, 2000 [place] [employer] [facility] [place] [facility]g [id number] Tuesday, November 10, 2009 Medicare Part A Medicare Part A [id number] N/A [place] [facility]illary [facility] [id number] May [facility] Comm Plan of [id number] Wednesday, May 30, 2012 History of Encounters Visit Date Visit Type Provider 04/14/2016 Office visit Heena Dumont MD 04/13/2016 Office visit Kaylynn Mendez GLASS ENAMEL MIXER 04/02/2016 Office visit Lena El GLASS ENAMEL MIXER 04/02/2016 Office visit Heena Dumont MD 03/26/2016 Office visit Yesica Falcon GLASS ENAMEL MIXER 03/17/2016 Office visit Heena Dumont MD 03/05/2016 Office visit Kaylynn Mendez GLASS ENAMEL MIXER 02/16/2016 Office visit Heena Dumont MD 02/14/2016 Office visit Na Jones GLASS ENAMEL MIXER 01/16/2016 Office visit Heena Dumont MD 12/16/2015 Office visit Heena Dumont MD 11/24/2015 Office visit Kaylynn Mendez GLASS ENAMEL MIXER 11/18/2015 Office visit Heena Dumont MD 11/03/2015 Office visit Sundeep Russell GLASS ENAMEL MIXER 10/20/2015 Office visit Kaylynn Mendez GLASS ENAMEL MIXER 09/23/2015 Office visit Kaylynn Mendez GLASS ENAMEL MIXER 09/16/[address] Pepe Figueroa MD 09/02/2015 Office visit Kaylynn Mendez GLASS ENAMEL MIXER 09/01/2015 Office visit Kaylynn Mendez GLASS ENAMEL MIXER 07/30/2015 Office visit Heena Dumont MD 07/15/2015 Office visit Kaylynn Mendez GLASS ENAMEL MIXER 07/04/2015 Office visit Heena Dumont MD 06/06/2015 Office visit Heena Dumont MD 06/06/2015 Office visit Kaylynn Mendez GLASS ENAMEL MIXER 06/02/2015 Office visit Kaylynn Mendez GLASS ENAMEL MIXER 05/26/2015 Office visit Kaylynn Mendez GLASS ENAMEL MIXER 05/20/2015 Office visit Kaylynn Mendez GLASS ENAMEL MIXER 05/08/2015 Office visit Heena Dumont MD 05/06/2015 Office visit Kaylynn Mendez GLASS ENAMEL MIXER 04/29/2015 Office visit Kaylynn Mendez GLASS ENAMEL MIXER 03/27/2015 Voided Brittni Yanez GLASS ENAMEL MIXER 03/21/2015 Office visit Heena Dumont MD 03/12/2015 Office visit Kaylynn Mendez GLASS ENAMEL MIXER 02/26/2015 Office visit Brittni Yanez GLASS ENAMEL MIXER 02/13/2015 Office visit Heena Dumont MD 01/15/2015 Office visit Brittni Yanez GLASS ENAMEL MIXER 01/13/2015 Office visit Heena Dumont MD 01/08/[address] Carol Fowler MD 01/01/2015 Office visit Brittni Yanez GLASS ENAMEL MIXER 12/13/2014 Office visit Heena Dumont MD 11/27/2014 Office visit Kaylynn Mendez GLASS ENAMEL MIXER 11/14/2014 Office visit Heena Dumont MD 10/18/2014 Office visit Heena Dumont MD 10/17/2014 [facility] John Hoskins MD 10/09/2014 Office visit Heena Dumont MD 09/25/2014 Office visit Heena Dumont MD 09/17/2014 Office visit Kaylynn Mendez GLASS ENAMEL MIXER 09/04/2014 Office visit Heena Dumont MD 08/28/2014 Office visit Kaylynn Mendez GLASS ENAMEL MIXER 08/23/2014 [facility] John Hoskins MD 08/01/2014 Office visit Kaylynn Mendez GLASS ENAMEL MIXER 07/29/2014 Office visit Heena Dumont MD 07/25/2014 Nurse visit Heena Dumont MD 07/17/2014 Office visit Kaylynn Mendez GLASS ENAMEL MIXER 07/11/2014 Office visit Heena Dumont MD 07/01/2014 Office visit Heena Dumont MD 06/25/2014 Office visit Kaylynn Mendez GLASS ENAMEL MIXER 06/12/2014 Office visit Kaylynn Mendez GLASS ENAMEL MIXER 06/06/2014 Office visit Kaylynn Mendez GLASS ENAMEL MIXER 05/27/2014 Office visit Heena Dumont MD 04/20/2014 Office visit Yesica Falcon GLASS ENAMEL MIXER 03/29/2014 Office visit Na Jones GLASS ENAMEL MIXER 03/15/2014 Office visit Heena Dumont MD 2014 Office visit Heena Dumont MD 2014 [facility] John Hoskins MD 02/27/2014 Nurse visit Heena Dumont MD 02/13/2014 Office visit Lena El GLASS ENAMEL MIXER 02/07/2014 Office visit Heena Dumont MD 02/03/2014 Office visit Na Jones GLASS ENAMEL MIXER 01/30/2014 Office visit Kaylynn Mendez GLASS ENAMEL MIXER 01/24/2014 Office visit Sundeep Russell GLASS ENAMEL MIXER 01/16/2014 Office visit Kaylynn Walker GLASS ENAMEL MIXER 01/10/2014 Nurse visit Kaylynn Mendez GLASS ENAMEL MIXER 01/08/2014 Office visit Kaylynn Walker GLASS ENAMEL MIXER 12/05/2013 Office visit Kaylynn Walker GLASS ENAMEL MIXER 11/21/2013 Office visit Kaylynn Walker GLASS ENAMEL MIXER 10/23/2013 Office visit Brittni Yanez GLASS ENAMEL MIXER 10/17/2013 Nurse visit Heena Dumont MD 10/12/2013 Office visit Kaylynn Mendez GLASS ENAMEL MIXER 10/02/2013 Office visit Heena Dumont MD 09/20/2013 Nurse visit Kaylynn Mendez GLASS ENAMEL MIXER 09/20/2013 Voided Heena Dumont MD 09/14/2013 Office visit Kaylynn Walker GLASS ENAMEL MIXER 09/05/2013 Office visit Sundeep Drew GLASS ENAMEL MIXER 09/04/2013 Nurse visit Kaylynn Walker GLASS ENAMEL MIXER 08/31/2013 Office visit Kaylynn Walker GLASS ENAMEL MIXER 08/23/2013 Office visit Heena Dumont MD 08/10/2013 Office visit Kaylynn Walker GLASS ENAMEL MIXER 07/25/2013 Office visit Kaylynn Walker GLASS ENAMEL MIXER 07/18/2013 Office visit Kaylynn Walker GLASS ENAMEL MIXER 07/12/2013 Office visit Kaylynn Walker GLASS ENAMEL MIXER 06/28/2013 Nurse visit Kaylynn Walker GLASS ENAMEL MIXER 06/14/2013 Nurse visit Kaylynn Walker GLASS ENAMEL MIXER 06/08/2013 Nurse visit Kaylynn Walker GLASS ENAMEL MIXER 05/31/2013 Nurse visit Chadd Norris DO 05/18/2013 Office visit Terese Davidson MD 05/16/2013 Office visit Kaylynn Walker GLASS ENAMEL MIXER 05/09/2013 Office visit Kaylynn Mendez GLASS ENAMEL MIXER 04/29/2013 [facility] John Hoskins MD 04/25/2013 Nurse visit Kaylynn Walker GLASS ENAMEL MIXER 04/17/2013 Office visit Kaylynn Walker GLASS ENAMEL MIXER 04/03/2013 Nurse visit Kaylynn Mendez GLASS ENAMEL MIXER 04/03/2013 Office visit Terese Davidson MD 03/28/2013 Office visit Sundeep Russell GLASS ENAMEL MIXER 03/21/2013 Office visit Kaylynn Mendez GLASS ENAMEL MIXER 03/20/2013 Office visit Terese Davidson MD 03/14/2013 Nurse visit Kaylynn Walker GLASS ENAMEL MIXER 03/05/2013 Nurse visit Kaylynn Mendez GLASS ENAMEL MIXER 02/19/2013 Office visit Terese Davidson MD 02/16/2013 Nurse visit Kaylynn Mendez GLASS ENAMEL MIXER 02/09/2013 Office visit Sundeep Russell GLASS ENAMEL MIXER 02/08/2013 Nurse visit Kaylynn Walker GLASS ENAMEL MIXER 02/01/2013 Nurse visit Kaylynn Walker GLASS ENAMEL MIXER 01/26/2013 Nurse visit Sabrina Mendez PAD TUFTER 01/25/2013 Office visit Kaylynn Walker GLASS ENAMEL MIXER 01/22/2013 Office visit Yoan Castaneda MD 01/18/2013 Nurse visit Kaylynn Walker GLASS ENAMEL MIXER 01/11/2013 Nurse visit Kaylynn Walker GLASS ENAMEL MIXER 01/05/2013 Nurse visit Kaylynn Walker GLASS ENAMEL MIXER 12/29/2012 Office visit Kaylynn Walker GLASS ENAMEL MIXER 11/27/2012 Office visit Kaylynn Walker GLASS ENAMEL MIXER 11/08/2012 Office visit Odell Tierney MD 11/08/2012 Voided Odell Tierney MD 11/07/2012 Office visit Kaylynn Walker GLASS ENAMEL MIXER 10/31/2012 [facility] John Hoskins MD 10/31/2012 Office visit Kaylynn Mendez GLASS ENAMEL MIXER 10/19/2012 Office visit Genoveva Ayala GLASS ENAMEL MIXER 10/10/2012 Office visit Kaylynn Andrea GLASS ENAMEL MIXER 10/03/2012 Office visit Kaylynn Walker GLASS ENAMEL MIXER 09/26/2012 Office visit Kaylynn Walker GLASS ENAMEL MIXER 09/06/2012 Office visit Kaylynn Mendez GLASS ENAMEL MIXER 09/06/2012 Office visit Odell Tierney MD 08/31/2012 Voided Kaylynn Mendez GLASS ENAMEL MIXER 07/28/2012 Office visit Kaylynn Mendez GLASS ENAMEL MIXER 07/27/2012 Office visit David Joyner DO 07/20/2012 [facility] David Joyner DO 07/13/2012 [facility] David Joyner DO 07/11/2012 Office visit Kaylynn Mendez GLASS ENAMEL MIXER 06/27/2012 [facility] Odell Tierney MD 06/21/2012 Office visit David Joyner DO 06/21/2012 Office visit Odell Tierney MD 06/20/2012 Office visit Brittni Yanez GLASS ENAMEL MIXER 06/06/2012 Office visit Odell Tierney MD 05/03/2012 Office visit Kaylynn Mendez GLASS ENAMEL MIXER 04/28/2012 Office visit Brittni Yanez GLASS ENAMEL MIXER 04/11/2012 Office visit Kaylynn Mendez GLASS ENAMEL MIXER 04/06/2012 [facility] John Hoskins MD 03/30/2012 Office visit Kaylynn Mendez GLASS ENAMEL MIXER 03/15/2012 Office visit Kaylynn Mendez GLASS ENAMEL MIXER 03/15/2012 Office visit Odell Tierney MD 02/09/2012 Office visit Kaylynn Mendez GLASS ENAMEL MIXER 12/23/2011 Office visit Kaylynn Mendez GLASS ENAMEL MIXER 11/02/2011 Office visit Kaylynn Mendez GLASS ENAMEL MIXER 10/14/2011 Office visit Kaylynn Mendez GLASS ENAMEL MIXER 09/27/2011 Office visit Kaylynn Mendez GLASS ENAMEL MIXER 08/19/2011 [facility] John Hoskins MD 08/18/2011 [facility] John Hoskins MD 08/18/2011 Office visit Kaylynn Mendez GLASS ENAMEL MIXER 08/02/2011 Office visit Kaylynn Mendez GLASS ENAMEL MIXER 07/08/2011 Office visit Kaylynn Mendez GLASS ENAMEL MIXER 07/05/2011 Office visit Odell Tierney MD 06/15/2011 Office visit Kaylynn Mendez GLASS ENAMEL MIXER 05/14/2011 Office visit Kaylynn Mendez GLASS ENAMEL MIXER 05/11/2011 Office visit Odell Tierney MD 04/28/2011 Office visit Kaylynn Mendez GLASS ENAMEL MIXER 03/02/2011 Office visit Chadd Norris DO 02/17/2011 [...]
--- OUTSIDE RECORDS SUMMARY | 2018-05-09 16:36 | XMS REPORT ---
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 Name Role Phone Heena Dumont PCP Allergies and Adverse Reactions Name Reaction Notes Aspirin Methadone Ultram Vicodin Plan of Treatment Planned Activity Comments Planned Date Planned Time Plan/Goal CINE/VID X-RAY THROAT/ESOPH 05/08/2015 12:00 AM COMPREHEN METABOLIC PANEL 09/16/2015 12:00 AM ELECTROCARDIOGRAM COMPLETE 11/13/2015 12:00 AM HEMOGLOBIN 12/16/2015 12:00 AM ELECTROCARDIOGRAM COMPLETE 10/31/2012 12:00 AM [...] 3 TIMES PER DAY PRN MUSCLE SPASM Invokana 100 mg oral tablet take 1 tablet (100 mg) by oral route once daily before the first meal of the day magnesium oxide 400 mg oral capsule take [...] DAILY AT THE SAME TIME EACH DAY omeprazole 20 mg oral capsule,delayed release(DR/EC) 12/16/2015 04/14/2016 take 1 capsule (20 mg) by oral route once daily before a meal for 30 days nortriptyline 10 mg oral capsule 12/22/2015 TAKE [...] 01/19/2016 APPLY BY EXTERNAL ROUTE ONCE DAILY [employer] IQ Meter miscellaneous kit 01/21/2016 test 2 x daily, Dx: E11.9, 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 [employer] Lancets 33 gauge miscellaneous misc 01/21/2016 use as directed [employer] miscellaneous strip 01/21/2016 07/19/2016 Test 2x daily, Dx: E11.9 TEST STRIPS cetirizine 10 mg oral tablet 01/26/2016 TAKE 1 TABLET BY MOUTH EVERY DAY nortriptyline 10 mg oral capsule 01/28/2016 TAKE 1 CAPSULE BY ORAL ROUTE ONCE A DAY (AT BEDTIME) FOR 30 DAYS clobetasol-emollient 0.05 % topical foam 02/09/2016 APPLY BY EXTERNAL ROUTE ONCE DAILY hydrocodone-acetaminophen 10-325 mg oral tablet 2016 04/03/2016 take 1 tablet by oral route every [...] 08/27/2014 use as directed for 99 days [place] 5-325 mg oral tablet 06/17/2014 06/27/2014 take [...] a day as needed for 30 days zwbktsgs-[id number]-UN 3.5-10,000-1 mg/mL-unit/mL-% otic drops,suspension 201401/08/2015 instill 4 [...] for 30 days States its not working Svitlanaien CR 6.25 mg oral tablet,ext release multiphase [...] days Pt. reports not having the seizures Zyrtec 10 mg oral tablet 03/17/2016 take [...] 30 minutes before meals for 30 days Problem List Description Status [...] Active 06/09/2015 Vital Signs Date Time BP-Sys(mm[Hg] BP-Lsiha(mm[Hg]) HR(bpm) RR(rpm) Temp WT HT HC BMI BSA BMI Percentile O2 Sat(%) 03/17/2016 10:46:00 AM 118 mmHg 80 mmHg [...] Decadron 1 mg [facility]#[id number] (Jr) Reviewed 04/28/2011 12:00 AM Depo-Medrol 80 mg [facility]#[id number]-Xkvcuppe Reviewed 09/02/2015 12:00 AM Toradol 60 Mg [facility]#8006-4473-22 Reviewed 09/02/2015 12:00 AM Phenergan, Up to 50 Mg [facility] Medicaid Reviewed 09/16/2015 12:00 AM Toradol 60 Mg [facility]#3432-1327-19 Reviewed 09/16/2015 12:00 AM Phenergan Up to 50 mg [facility] Medicare Reviewed 05/11/2011 12:00 AM N BLOCK INJ OCCIPITAL Reviewed 05/11/2011 12:00 AM Kengretta Ia-[address]-20 ANNA Reviewed 11/13/2015 12:00 AM ASSAY OF [...] 12:00 AM Toradol,15mg [facility]#[id number], Adilene Reviewed 07/08/2011 12:00 AM Phenergan 50 Mg Im [facility] [place] [id number] ALLIE Hoskins Reviewed 01/21/2016 12:00 AM ECG MONIT/REPRT UP TO 48 HRS Returned 08/02/2011 12:00 AM THER/PROPH/DIAG INJ SC/IM Reviewed 08/02/2011 12:00 AM Decadron 1 mg [facility]#[id number] (Jr) Reviewed 08/02/2011 12:00 AM Depo-Medrol 80 mg [facility]#[id number]-Ymdpggva Reviewed 03/05/2016 12:00 AM COMPLETE CBC W/AUTO DIFF WBC Returned 03/05/2016 12:00 AM STREP A ASSAY W/OPTIC Returned 03/05/2016 12:00 AM C-REACTIVE PROTEIN Returned 03/18/2016 12:00 AM [facility] MEDICARE - flu vaccine administration Reviewed 03/18/2016 12:00 AM INFLUENZA VACCINE QUADRIVALENT 3 YRS PLUS IM Reviewed 09/27/2011 12:00 AM THER/PROPH/DIAG INJ SC/IM Reviewed 09/27/2011 12:00 AM Depo-Medrol 80 mg N[facility]#[id number]-Ogkiyuha Reviewed 10/14/2011 12:00 AM X-RAY EXAM OF ABDOMEN Returned 10/14/2011 12:00 AM URINALYSIS AUTO W/O SCOPE Reviewed 12/23/2011 12:00 AM THER/PROPH/DIAG INJ SC/IM Reviewed 12/23/2011 12:00 AM Decadron 1 mg [facility]#[id number] (Jr) Reviewed 12/23/2011 12:00 AM Depo-Medrol 80 mg [facility]#[id number]-Hurhlyab Reviewed 02/09/2012 12:00 AM THER/PROPH/DIAG INJ SC/IM Reviewed 02/09/2012 12:00 AM Decadron 1 mg [facility]#[id number] (Jr) Reviewed 02/09/2012 12:00 AM Depo-Medrol 80 mg [facility]#[id number]-Pkcbmpgl Reviewed 03/15/2012 12:00 AM N BLOCK INJ OCCIPITAL Reviewed 03/15/2012 12:00 AM Kenalog Ey-[address]-20 ANNA Reviewed 04/11/2012 12:00 AM COMPLETE CBC W/AUTO DIFF WBC Returned 04/11/2012 12:00 AM COMPREHEN METABOLIC PANEL Returned 04/11/2012 12:00 AM LIPID PANEL Returned 04/11/2012 12:00 AM ASSAY THYROID STIM HORMONE Returned 06/20/2012 12:00 AM THER/PROPH/DIAG INJ SC/IM Reviewed 06/20/2012 12:00 AM Decadron, Per 1 Mg ND# [address]-84 Reviewed 06/20/2012 12:00 AM Depo-Medrol, Per 80 Mg ND#5364-0818-01 Reviewed 09/06/2012 12:00 AM N BLOCK INJ OCCIPITAL Reviewed 09/06/2012 12:00 AM Kenalog Nm-[address]-20 ANNA Reviewed 09/06/2012 12:00 AM X-RAY EXAM RIBS UNI 2 VIEWS Returned 09/26/2012 12:00 AM THER/PROPH/DIAG INJ SC/IM Reviewed 09/26/2012 12:00 AM Decadron, Per 1 Mg ND# [address]-76 Reviewed 09/26/2012 12:00 AM Depo-Medrol, Per 80 Mg [facility]#8013-6205-59 Reviewed 10/03/2012 12:00 AM URINALYSIS AUTO W/O SCOPE Reviewed 10/03/2012 12:00 AM THER/PROPH/DIAG INJ SC/IM Reviewed 10/03/2012 12:00 AM Toradol 60 Mg ND#9307-7862-81 Reviewed 10/03/2012 12:00 AM Phenergan, 25Mg [facility]#6385-5430-83 Reviewed 10/19/2012 12:00 AM N BLOCK INJ OCCIPITAL Reviewed 10/19/2012 12:00 AM Kenalog, Per 10 Mg [facility]#6022-5078-43 Reviewed 10/19/2012 12:00 AM Toradol 30 Mg ND#5582-4858-40 Reviewed 10/19/2012 12:00 AM THER/PROPH/DIAG INJ SC/IM Reviewed 10/31/2012 12:00 AM COMPLETE CBC W/AUTO DIFF WBC Returned 10/31/2012 12:00 AM COMPREHEN METABOLIC PANEL Returned 10/31/2012 12:00 AM LIPID PANEL Returned 11/03/2012 12:[address] THORAX W/O & W/DYE Returned 11/08/2012 12:00 AM N BLOCK INJ OCCIPITAL Reviewed 11/08/2012 12:00 AM Kenalog Wh-[address]-20 ANNA Reviewed 11/27/2012 12:00 AM COMPLETE CBC [...] 1 Mg [facility]# [address]-21 Reviewed 01/25/2013 12:00 AM Depo-Medrol, Per 80 Mg [facility]#5438-5892-77 Reviewed 01/26/2013 12:00 AM IMMUNOTHERAPY INJECTIONS Returned [...] 1 Mg [facility]# [address]-47 Reviewed 05/16/2013 12:00 AM Depo-Medrol, Per 80 Mg [facility]#2139-5011-72 Reviewed 05/31/2013 12:00 AM IMMUNOTHERAPY INJECTIONS Reviewed 06/08/2013 12:00 AM IMMUNOTHERAPY INJECTIONS Reviewed 06/14/2013 12:00 AM IMMUNOTHERAPY INJECTIONS Reviewed 06/28/2013 12:00 AM IMMUNOTHERAPY INJECTIONS Reviewed 07/12/2013 12:00 AM X-RAY EXAM RIBS UNI 2 VIEWS Returned 07/18/2013 12:00 AM Toradol 60 Mg [facility]#5507-3191-28 Reviewed 07/18/2013 12:00 AM THER/PROPH/DIAG INJ SC/IM [...] 1 Mg [facility]# [address]-33 Reviewed 09/14/2013 12:00 AM Depo-Medrol, Per 80 Mg [facility]#3679-2860-35 Reviewed 09/20/2013 12:00 AM IMMUNOTHERAPY INJECTIONS Reviewed [...] INJ OCCIPITAL Reviewed 12/10/2009 12:00 AM Kenalog Xf-[address]-20 ANNA Reviewed 12/16/2009 12:00 AM HIV-1ANTIBODY Reviewed 12/16/2009 12:00 AM COMPLETE CBC W/AUTO DIFF WBC Reviewed 12/16/2009 12:00 AM METABOLIC PANEL TOTAL CA Reviewed 12/16/2009 12:00 AM Type and screen Reviewed 12/16/2009 12:00 AM PROTHROMBIN TIME Reviewed 12/16/2009 12:00 AM THROMBOPLASTIN TIME PARTIAL Reviewed 03/18/2010 12:00 AM DRAIN/INJ JOINT/BURSA W/O US Reviewed 03/18/2010 12:00 AM Kenalog Ie-[address]-20 ANNA Reviewed 11/21/2013 12:00 AM RADEX HAND MINIMUM 3 VIEWS Returned 06/03/2010 12:00 AM INJ TRIGGER POINT 1/2 MUSCL Reviewed 06/03/2010 12:00 AM Kenalog per 10Mg Im-Nd#[address]-10(Niall) Reviewed 12/05/2013 12:00 AM COMPLETE CBC W/AUTO [...] Reviewed 07/23/2010 12:00 AM Kenalog per 10Mg Im-Nd#[address]-08(Niall) Reviewed 2014 12:00 AM COMPLETE CBC W/AUTO [...] INJ OCCIPITAL Reviewed 10/01/2010 12:00 AM Kenalog Is-[address]-20 ANNA Reviewed 07/25/2014 12:00 AM THER/PROPH/DIAG INJ [...] 0.60 mg/dLCALCIUM 10.90 mg/ dLeGFR >60 mL/min/1.73 [id number] 45.0 U/L 08/31/2013 10:54 AM GLUCOSE 255.0 [...] 0.40 mg/ dLCALCIUM 10.60 mg/dLeGFR >60 mL/min/1.73 [id number] 369.0 mg/ dLCHOLESTEROL 153.0 mg/dLHDL 26.0 mg/dLLDL [...] BILI 0.30 mg/dLCALCIUM 10.0 mg/dLeGFR >60 mL/min/1.73 [id number] YELLOW APPEARANCE CLEAR SPEC GRAV 1.010 pH 5.5 PROTEIN NEGATIVE GLUCOSE NEGATIVE KETONE NEGATIVE BILIRUBIN NEGATIVE BLOOD NEGATIVE NITRITE NEGATIVE LEUK SCREEN NEGATIVE Est Avg Glucose 134.1 mg/dLMICROALBUMIN UR <0.5 MG/DL 02/13/2015 4:38 PM RMSF, IgG, EIA Negative Dejuan Okn Spotted Fever,IgM 0.51 E. chaffeensis (HME) IgGTiter [...] %MCV 92.0 fLMCH 30.40 pgMCHC 32.90 g/dLRDW CV 12.90 %MPV 11.30 fLPLT 413 %NEUT 53.90 %%LYMP 35.80 %%MONO 5.20 %%EOS 4.0 %%BASO 0.50 %#NEUT 8.08 #LYMP 5.36 #MONO 0.78 #EOS 0.60 #BASO 0.07 TSH 0.520 uIU/mLGLUCOSE 149.0 mg/dLSODIUM 136.0 mmol/LPOTASSIUM 3.40 mmol/LCHLORIDE 101.0 mmol/LCO2 23.0 mmol/LBUN 10.0 mg/dLCREATININE 0.80 mg/ dLCALCIUM 10.10 mg/dLeGFR >60 mL/min/1.73mTROPONIN-I AD <0.04 ng/mLMAGNESIUM 2.10 mg/dL 11/24/2015 11:50 AM WBC 18.2 RBC 4.65 HGB 14.20 g/dLHCT 43.0 %MCV 93.0 fLMCH 30.50 pgMCHC 33.0 g/dLRDW CV 13.20 %MPV 10.80 fLPLT 394 %NEUT 64.0 %%LYMP 27.80 %%MONO 4.50 %%EOS 2.70 %%BASO 0.40 %#NEUT 11.63 #LYMP 5.05 #MONO 0.81 #EOS 0.49 #BASO 0.08 EOS 3.0 %BASO 1.0 %GLUCOSE 151.0 mg/dLSODIUM 138.0 mmol/LPOTASSIUM 4.10 mmol/LCHLORIDE 102.0 mmol/LCO2 23.0 mmol/LBUN 7.0 mg/dLCREATININE 0.80 mg/ dLSGOT/AST 26.0 IU/LSGPT/ALT 41.0 IU/LALK PHOS 181.0 IU/LTOTAL PROTEIN 7.70 g/ dLALBUMIN 5.10 g/dLTOTAL BILI 0.40 mg/dLCALCIUM 10.50 mg/dLeGFR >60 mL/min/ 1.73m 03/05/2016 11:20 AM GLUCOSE 121.0 mg/dLSODIUM 139.0 mmol/LPOTASSIUM 3.60 mmol/ LCHLORIDE 106.0 mmol/LCO2 22.0 mmol/LBUN 7.0 mg/dLCREATININE 0.70 mg/dLCALCIUM 9.10 mg/dLeGFR >60 mL/min/1.73mC REACTIVE PROTEIN 23.0 mg/LWBC 20.0 RBC 4.24 HGB 12.70 g/dLHCT 39.80 %MCV 94.0 fLMCH 30.0 pgMCHC 31.90 g/dLRDW CV 14.0 %MPV 11.40 fLPLT 432 %NEUT 67.30 %%LYMP 25.10 %%MONO 3.90 %%EOS 2.50 %%BASO 0.50 %# NEUT 13.44 #LYMP 5.01 #MONO 0.78 #EOS 0.50 #BASO 0.09 EOS 5.0 % History Of Immunizations Name Date Admin Mfg Name Mfg Code Trade Name Lot# Route Inj Vis Given Vis Pub CVX Influenza 03/30/2011 Not Entered NE Not Entered Not Entered Not Entered 03/31/2011 05/30/2016 141 Influenza 04/24/2014 sanofi pasteur PMC Fluzone [id number] Intramuscular Left Upper Arm 02/27/2014 01/15/2014 141 Influenza 02/13/2015 sanofi pasteur PMC Fluzone [id number] Intramuscular Left Deltoid 02/13/2015 01/03/2015 140 Tdap 06/06/2015 GlaxoSmithKline SKB BOOSTRIX [id number] Intramuscular Left Deltoid 06/06/2015 07/23/2014 115 Influenza 03/18/2016 sanofi pasteur PMC Fluzone [id number] Intramuscular Left Deltoid 03/17/2016 01/03/2015 141 History [...] Osteoporosis b 2014 3:51PM Elevated liver enzymes Jul 01 [...] 10:49AM Flu Vaccine Mar 18 2016 11:58AM Payers Insurance Name Company Name Plan Name Plan Number Policy Number Policy Group Number Start Date Medicare Part A Medicare RHC [id number] N/A [facility] - RHC - Community Plan [facility] RHC Comm [id number] N/A Medicare Part A Medicare - Lab/Xray [id number] N/A Medicare Part B Medicare Of [place] [id number] Monday, February 28, 2000 [employer] [facility] [place] [employer] [id number] Tuesday, November 10, 2009 Medicare Part A Medicare Part A [id number] N/A [employer] - R[employer] - RHC [id number] May [facility] Comm Plan of [id number] Wednesday, May 30, 2012 History of Encounters Visit Date Visit Type Provider 03/17/2016 Office visit Heena Dumont MD 03/05/2016 Office visit Kaylynn Mendez [employer] 02/16/2016 Office visit Heena Dumont MD 02/14/2016 Office visit Na Jones [employer] 01/16/2016 Office visit Heena Dumont MD 12/16/2015 Office visit Heena Dumont MD 11/24/2015 Office visit Kaylynn Mendez [employer] 11/18/2015 Office visit Heena Dumont MD 11/03/2015 Office visit Sundeep Russell [employer] 10/20/2015 Office visit Kaylynn Mendez [employer] 09/23/2015 Office visit Kaylynn Mendez [employer] 09/16/[address] Pepe Figueroa MD 09/02/2015 Office visit Kaylynn Mendez [employer] 09/01/2015 Office visit Kaylynn Mendez [employer] 07/30/2015 Office visit Heena Dumont MD 07/15/2015 Office visit Kaylynn Mendez [employer] 07/04/2015 Office visit Heena Dumont MD 06/06/2015 Office visit Heena Dumont MD 06/06/2015 Office visit Kaylynn Walker [employer] 06/02/2015 Office visit Kaylynn Walker [employer] 05/26/2015 Office visit Kaylynn Walker [employer] 05/20/2015 Office visit Kaylynn Walker [employer] 05/08/2015 Office visit Heena Dumont MD 05/06/2015 Office visit Kaylynn Mendez [employer] 04/29/2015 Office visit Kaylynn Walker [employer] 03/27/2015 Voided Brittni Yanez [employer] 03/21/2015 Office visit Heena Dumont MD 03/12/2015 Office visit Kaylynn Mendez [employer] 02/26/2015 Office visit Brittni Yanez [employer] 02/13/2015 Office visit Heena Dumont MD 01/15/2015 Office visit Brittni Yanez [employer] 01/13/2015 Office visit Heena Dumont MD 01/08/[address] Carol Fowler MD 01/01/2015 Office visit Brittni Yanez [employer] 12/13/2014 Office visit Heena Dumont MD 11/27/2014 Office visit Kaylynn Mendez [employer] 11/14/2014 Office visit Heena Dumont MD 10/18/2014 Office visit Heena Dumont MD 10/17/2014 [facility] John Hoskins MD 10/09/2014 Office visit Heena Dumont MD 09/25/2014 Office visit Heena Dumont MD 09/17/2014 Office visit Kaylynn Mendez [employer] 09/04/2014 Office visit Heena Dumont MD 08/28/2014 Office visit Kaylynn Mendez [employer] 08/23/2014 Hospital John Hoskins MD 08/01/2014 Office visit Kaylynn Mendez [employer] 07/29/2014 Office visit Heena Dumont MD 07/25/2014 Nurse visit Heena Dumont MD 07/17/2014 Office visit Kaylynn Mendez [employer] 07/11/2014 Office visit Heena Dumont MD 07/01/2014 Office visit Heena Dumont MD 06/25/2014 Office visit Kaylynn Mendez [employer] 06/12/2014 Office visit Kaylynn Mendez [employer] 06/06/2014 Office visit Kaylynn Mendez [employer] 05/27/2014 Office visit Heena Dumont MD 04/20/2014 Office visit Yesica Falcon [employer] 03/29/2014 Office visit Na Jones [employer] 03/15/2014 Office visit Heena Dumont MD 2014 Office visit Heena Dumont MD 2014 [facility] John Hoskins MD 02/27/2014 Nurse visit Heena Dumont MD 02/13/2014 Office visit Lena El [employer] 02/07/2014 Office visit Heena Dumont MD 02/03/2014 Office visit Na Jones [employer] 01/30/2014 Office visit Kaylynn Mendez [employer] 01/24/2014 Office visit Sundeep Russell [employer] 01/16/2014 Office visit Kaylynn Walker [employer] 01/10/2014 Nurse visit Kaylynn Mendez [employer] 01/08/2014 Office visit Kaylynn Walker [employer] 12/05/2013 Office visit Kaylynn Walker [employer] 11/21/2013 Office visit Kaylynn Walker [employer] 10/23/2013 Office visit Brittni Yanez [employer] 10/17/2013 Nurse visit Heena Dumont MD 10/12/2013 Office visit Kaylynn Mendez [employer] 10/02/2013 Office visit Heena Dumont MD 09/20/2013 Nurse visit Kaylynn Mendez [employer] 09/20/2013 Voided Heena Dumont MD 09/14/2013 Office visit Kaylynn Walker [employer] 09/05/2013 Office visit Sundeep Russell [employer] 09/04/2013 Nurse visit Kaylynn Walker [employer] 08/31/2013 Office visit Kaylynn Walker [employer] 08/23/2013 Office visit Heena Dumont MD 08/10/2013 Office visit Kaylynn Mendez [employer] 07/25/2013 Office visit Kaylynn Walker [employer] 07/18/2013 Office visit Kaylynn Walker [employer] 07/12/2013 Office visit Kaylynn Walker [employer] 06/28/2013 Nurse visit Kaylynn Walker [employer] 06/14/2013 Nurse visit Kaylynn Walker [employer] 06/08/2013 Nurse visit Kaylynn Walker [employer] 05/31/2013 Nurse visit Chadd Norris DO 05/18/2013 Office visit Terese Davidson MD 05/16/2013 Office visit Kaylynn Mendez [employer] 05/09/2013 Office visit Kaylynn Walker [employer] 04/29/2013 [facility] John Hoskins MD 04/25/2013 Nurse visit Kaylynn Walker [employer] 04/17/2013 Office visit Kaylynn Walker [employer] 04/03/2013 Nurse visit Kaylynn Mendez [employer] 04/03/2013 Office visit Terese Davidson MD 03/28/2013 Office visit Sundeep Russell [employer] 03/21/2013 Office visit Kaylynn Mendez [employer] 03/20/2013 Office visit Terese Davidson MD 03/14/2013 Nurse visit Kaylynn Mendez [employer] 03/05/2013 Nurse visit Kaylynn Andrea [employer] 02/19/2013 Office visit Terese Davidson MD 02/16/2013 Nurse visit Kaylynn Andrea [employer] 02/09/2013 Office visit Sundeep Russell [employer] 02/08/2013 Nurse visit Kaylynn Mendez [employer] 02/01/2013 Nurse visit Kaylynn Andrea [employer] 01/26/2013 Nurse visit Sabrina Andrea [employer] 01/25/2013 Office visit Kaylynn Andrea [employer] 01/22/2013 Office visit Yoan Castaneda MD 01/18/2013 Nurse visit Kaylynn Andrea [employer] 01/11/2013 Nurse visit Kaylynn Andrea [employer] 01/05/2013 Nurse visit Kaylynn Andrea [employer] 12/29/2012 Office visit Kaylynn Andrea [employer] 11/27/2012 Office visit Kaylynn Mendez [employer] 11/08/2012 Office visit Odell Tierney MD 11/08/2012 Voided Odell Tierney MD 11/07/2012 Office visit Kaylynn Mendez [employer] 10/31/2012 [facility] John Hoskins MD 10/31/2012 Office visit Kaylynn Mendez [employer] 10/19/2012 Office visit Genoveva Ayala [employer] 10/10/2012 Office visit Kaylynn Mendez [employer] 10/03/2012 Office visit Kaylynn Andrea [employer] 09/26/2012 Office visit Kaylynn Andrea [employer] 09/06/2012 Office visit Kaylynn Andrea [employer] 09/06/2012 Office visit Odell Tierney MD 08/31/2012 Voided Kaylynn Mednez [employer] 07/28/2012 Office visit Kaylynn Mendez [employer] 07/27/2012 Office visit David Joyner DO 07/20/2012 [facility] David Joyner DO 07/13/2012 [facility] David Joyner DO 07/11/2012 Office visit Kaylynn Mendez [employer] 06/27/2012 [facility] Odell Tierney MD 06/21/2012 Office visit David Joyner DO 06/21/2012 Office visit Odell Tierney MD 06/20/2012 Office visit Brittni Yanez [employer] 06/06/2012 Office visit Odell Tierney MD 05/03/2012 Office visit Kaylynn Mendez [employer] 04/28/2012 Office visit Brittni Yanez [employer] 04/11/2012 Office visit Kaylynn Mendez [employer] 04/06/2012 [facility] John Hoskins MD 03/30/2012 Office visit Kaylynn Mendez [employer] 03/15/2012 Office visit Kaylynn Mendez [employer] 03/15/2012 Office visit Odell Tierney MD 02/09/2012 Office visit Kaylynn Mendez [employer] 12/23/2011 Office visit Kaylynn Walker [employer] 11/02/2011 Office visit Kaylynn Walker [employer] 10/14/2011 Office visit Kaylynn Walker [employer] 09/27/2011 Office visit Kaylynn Walker [employer] 08/19/2011 Hospital John Hoskins MD 08/18/2011 Hospital John Hoskins MD 08/18/2011 Office visit Kaylynn Mendez [employer] 08/02/2011 Office visit Kaylynn Walker [employer] 07/08/2011 Office visit Kaylynn Walker [employer] 07/05/2011 Office visit Odell Tierney MD 06/15/2011 Office visit Kaylynn Mendez [employer] 05/14/2011 Office visit Kaylynn Andrea [employer] 05/11/2011 Office visit Odell Tierney MD 04/28/2011 Office visit Kaylynn Mendez [employer] 03/02/2011 Office visit Chadd Norris DO 02/17/2011 [...]
--- OUTSIDE RECORDS SUMMARY | 2018-05-09 16:39 | XMS REPORT ---
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 Name Role Phone Heena Dumont PCP Allergies [...] CHEST X-RAY 2VW FRONTAL&LATL 06/12/2014 12:00 AM X-RAY EXAM OF ABDOMEN 09/25/2014 12:00 AM COMPLETE CBC W/AUTO DIFF WBC 10/01/2014 12:00 AM COMPREHEN METABOLIC PANEL 10/01/2014 12:00 AM Medications Active Name Start Date [...] ORAL ROUTE DAILY FOR 30 DAYS meloxicam oral tablet 7.5 mg 07/02/2014 TAKE 1-2 TABLETS BY ORAL ROUTE QD PRN FOR BACK PAIN montelukast oral tablet 10 mg 07/02/2014 TAKE 1 TABLET BY MOUTH EVERY EVENING Ambien CR oral tablet,ext release multiphase 12.5 mg 07/08/2014 10/06/2014 take 1 tablet (12.5 mg) by oral route once daily at bedtime for 30 days Sudafed 12 Hour oral tablet extended release [...] misc 33 gauge 08/21/2014 use as directed Invokana oral tablet 100 mg take 1 tablet (100 mg) by oral route once daily before the first meal of the day Calcium 500 + D oral tablet 500 mg(1,250mg) -200 unit take 1 tablet by oral route daily magnesium oxide oral capsule 400 mg take 1 capsule by oral route daily baclofen oral tablet 10 mg 09/12/2014 1 TABLET BY ORAL ROUTE 3 TIMES PER DAY PRN MUSCLE SPASM metformin oral tablet 500 mg take 4 tablets by oral route Dooley's Yeast oral tablet 500 mg (7.5 gr) take 2 tablets by oral route daily oxycodone oral tablet 5 mg 09/27/2014 10/27/2014 take 1 tablet by oral route once a day (at bedtime) for 30 days Name Start Date Expiration [...] 08/27/2014 use as directed for 99 days [place] oral tablet 5-325 mg 06/17/2014 06/27/2014 take 1 tablet by oral route every 6 hours as needed for pain for 10 days promethazine oral tablet 25 mg 07/01/2014 09/29/2014 take 1 tablet (25 mg) by oral route 2 times per day for 30 days naproxen oral tablet 500 [...] mg) by oral route once daily Dr. aPtterson Pyridium Oral Tablet 200 mg 03/18/2010 take [...] the evening changed to crestor Flonase Nasal [place], Suspension 50 mcg/actuation 06/20/2012 10/31/2012 inhale 1 spray (50 mcg) in each nostril by intranasal route once daily Restoril Oral capsule 15 mg 06/28/2012 07/11/2012 take 1 capsule (15 mg) by oral route once daily at bedtime as needed Chantix Starting Month Box Oral tablets,dose pack 0.5 (11)-1 42) mg 201210/31/2012 take as directed Ambien [...] 30 mL in 24 hours Tessalon Perles oral capsule 100 mg 04/30/2013 05/18/2013 [...] ORAL ROUTE ONCE DAILY AT BEDTIME PRN Prateek 12 Hour oral tablet extended release 120 [...] days States its not working Svitlanaien CR oral tablet,ext release multiphase 6.25 mg 02/25/2014 03/01/2014 take 1 tablet (6.25 mg) by oral route once daily at bedtime for 30 days per kaylynn crouch lidocaine topical adhesive patch,medicated 5 %(700 [...] once daily at bedtime for 30 days Zithromax Z-Simon oral tablet 250 mg 07/29/2014 [...] every 4 hours as needed for nausea Advair Diskus inhalation blister with device 100-50 mcg/dose 09/25/2014 inhale 1 puff by inhalation route 2 times per day in the morning and evening approximately 12 hours apart for 30 days Cholestyramine Light oral powder 4 gram 09/25/2014 take 1 scoop (4 gram) dissolved in 2 to 6 ounces of water or noncarbonated beverage by oral route 1 times per day Problem List Description Status Onset Anemia Active [...] disease, nonalcoholic Active 01/08/2014 Osteoporosis Active Vaginal Lesion Active 02/13/2014 Vital Signs Date Time BP-Sys(mm[Hg] BP-Lisha(mm[Hg]) HR(bpm) RR(rpm) Temp WT HT HC BMI BSA BMI Percentile O2 Sat(%) 09/25/2014 2:42:00 PM 110 mmHg 78 mmHg [...] F 180.125 lbs 64 in 30.92 kg/m2 1.92 m2 98 % 08/23/2013 1:45:00 PM 106 mmHg 70 mmHg 103 bpm 20 rpm 97.5 F 182 lbs 64 in 31.2399 kg/m 1.9307 m 98 % 08/10/2013 11:06:00 AM 132 mmHg 68 mmHg 114 bpm 18 rpm 98.1 F 164.5 lbs 64 in 28.24 kg/m2 1.84 m2 95 % 07/25/2013 4:01:00 PM 122 mmHg 64 mmHg 97 bpm 18 rpm 97.1 F 181 lbs 64 in 31.0683 kg/m 1.9254 m 98 % 07/18/2013 3:52:00 PM 134 mmHg 78 mmHg 122 bpm 24 rpm 98.6 F 184.5 lbs 64 in 31.67 kg/m2 1.94 m2 96 % 07/12/2013 3:49:00 PM 128 mmHg 68 mmHg 112 bpm 18 rpm 97.9 F 183.437 lbs 64 in 31.4867 kg/m 1.9384 m 97 % 05/18/2013 8:36:00 AM 132 mmHg 78 mmHg 78 bpm 22 rpm 97.4 F 188 lbs 64 in 32.27 kg/m2 1.96 m2 05/16/2013 1:49:00 PM 132 mmHg 64 mmHg 93 bpm 18 rpm 98.3 F 189.125 lbs 64 in 32.4629 kg/m 1.9682 m 97 % 05/09/2013 2:56:00 PM 136 mmHg 72 mmHg 111 bpm 18 rpm 98.5 F 186 lbs 64 in 31.93 kg/m2 1.95 m2 100 % 04/17/2013 11:34:00 AM 126 mmHg 78 mmHg 104 bpm 18 rpm 98.2 F 188.375 lbs 64 in 32.3342 kg/m 1.9643 m 96 % 04/03/2013 2:24:00 PM 120 mmHg 80 mmHg 89 bpm 16 rpm 97.3 F 189 lbs 64 in 32.44 kg/m2 1.97 m2 03/28/2013 7:31:00 PM 136 mmHg 68 mmHg 98 bpm 18 rpm 98.2 F 188 lbs 64 in 32.2698 kg/m 1.9623 m 97 % 03/21/2013 1:58:00 PM 136 mmHg 74 mmHg 86 bpm 18 rpm 98.7 F 188.25 lbs 64 in 32.31 kg/m2 1.96 m2 03/20/2013 1:41:00 PM 132 mmHg 84 mmHg 98 bpm 20 rpm 97.4 F 189 lbs 64 in 32.4414 kg/m 1.9675 m 02/19/2013 2:40:00 PM 112 mmHg 82 mmHg 104 bpm 96 % 02/19/2013 1:45:00 PM 122 mmHg 80 mmHg 111 bpm 18 rpm 98.2 F 188.375 lbs 96 % 02/09/2013 10:19:00 AM 118 mmHg 70 mmHg 105 bpm 20 rpm 97.4 F 190 lbs 64 in 32.61 kg/m2 1.97 m2 95 % 01/25/2013 10:59:00 AM 132 mmHg 72 mmHg 99 bpm 18 rpm 97.8 F 189.5 lbs 64 in 32.5273 kg/m 1.9701 m 98 % 01/22/2013 2:47:00 PM 133 mmHg 89 mmHg 107 bpm 98.2 F 186.25 lbs 64 in 31.97 kg/m2 1.95 m2 12/29/2012 10:06:00 AM 136 mmHg 68 mmHg 104 bpm 18 rpm 98.3 F 187.125 lbs 64 in 32.1196 kg/m 1.9577 m 99 % 11/27/2012 1:17:00 PM 122 mmHg [...] AM INJ TRIGGER POINT 2 MUSCL Reviewed 2014 12:00 AM COMPLETE CBC [...] 12:00 AM FECES CULTURE AEROBIC BACT Reviewed 09/25/2014 12:00 AM CLOSTRIDIUM AG EIA Returned 09/25/2014 12:00 AM COMPREHEN METABOLIC PANEL Returned 09/25/2014 12:00 AM ASSAY OF LIPASE Returned 11/19/2010 12:[address] ABDOMEN W/O & W/DYE Reviewed 11/19/2010 12:[address] PELVIS W/O & W/DYE Reviewed 12/02/2010 12:00 AM CYTOPATH TBS C/V MANUAL Reviewed Results Summary Data and Description Results [...] 0.60 mg/dLCALCIUM 10.90 mg/ dLeGFR >60 mL/min/1.73 [id number] 45.0 U/L 08/31/2013 10:54 AM GLUCOSE 255.0 [...] 0.40 mg/ dLCALCIUM 10.60 mg/dLeGFR >60 mL/min/1.73 [id number] 369.0 mg/ dLCHOLESTEROL 153.0 mg/dLHDL 26.0 mg/dLLDL [...] mg/ dLCALCIUM 10.70 mg/dLeGFR >60 mL/min/1.73 m2 History Of Immunizations Name Date Admin Mfg Name Mfg Code Trade Name Lot# Route Inj Vis Given Vis Pub CVX Influenza 03/30/2011 Not Entered NE Not Entered Not Entered Not Entered 03/31/2011 05/30/2015 141 Influenza 04/24/2014 [facility] Fluzone [id number] Intramuscular Left Upper Arm 02/27/2014 01/15/2014 141 [...] Fatty liver disease, nonalcoholic 01/08/2014 Osteoporosis Vaginal Lesion 02/13/2014 Lumbago Mar 18 2010 3:20PM Bursitis [...] Jun 9 2011 1:38PM Heart Sound Abnormality Jul [...] 2014 2:47PM Diarrhea Oct 01 2014 11:17AM Payers Insurance Name Company Name Plan Name Plan Number Policy Number Policy Group Number Start Date Medicare Part A Medicare Part A [id number] N/A [facility] Plan [facility] RHC Comm [id number] N/A [employer] [place] [employer] [facility] [id number] [facility] Comm Plan of [id number] Wednesday, 2012 Medicare Part B [place] [id number] Monday, 2000 [place] [employer] [place] [employer] [id number] Tuesday, 2009 History of Encounters Visit Date Visit Type Provider 09/25/2014 Office visit Heena Dumont MD 09/17/2014 Office visit Kaylynn Mendez PHYSICIAN SCRIBE 09/04/2014 Office visit Heena Dumont MD 08/28/2014 Office visit Kaylynn Mendez PHYSICIAN SCRIBE 08/01/2014 Office visit Kaylynn Mendez PHYSICIAN SCRIBE 07/29/2014 Office visit Heena Dumont MD 07/25/2014 Nurse visit Heena Dumont MD 07/17/2014 Office visit Kaylynn Mendez PHYSICIAN SCRIBE 07/11/2014 Office visit Heena Dumont MD 07/01/2014 Office visit Heena Dumont MD 06/25/2014 Office visit Kaylynn Mendez PHYSICIAN SCRIBE 06/12/2014 Office visit Kaylynn Mendez PHYSICIAN SCRIBE 06/06/2014 Office visit Kaylynn Mendez PHYSICIAN SCRIBE 05/27/2014 Office visit Heena Dumont MD 04/20/2014 Office visit Yesica Falcno PHYSICIAN SCRIBE 03/29/2014 Office visit Na Jones PHYSICIAN SCRIBE 03/15/2014 Office visit Heena Dumont MD 2014 Office visit Heena Dumont MD 2014 [facility] John Hoskins MD 02/27/2014 Nurse visit Heena Dumont MD 02/13/2014 Office visit Lena El PHYSICIAN SCRIBE 02/07/2014 Office visit Heena Dumont MD 02/03/2014 Office visit Na Jones PHYSICIAN SCRIBE 01/30/2014 Office visit Kaylynn Mendez PHYSICIAN SCRIBE 01/24/2014 Office visit Sundeep Russell PHYSICIAN SCRIBE 01/16/2014 Office visit Kaylynn Walker PHYSICIAN SCRIBE 01/10/2014 Nurse visit Kaylynn Mendez PHYSICIAN SCRIBE 01/08/2014 Office visit Kaylynn Walker PHYSICIAN SCRIBE 12/05/2013 Office visit Kaylynn Walker PHYSICIAN SCRIBE 11/21/2013 Office visit Kaylynn Walker PHYSICIAN SCRIBE 10/23/2013 Office visit Brittni Yanez PHYSICIAN SCRIBE 10/17/2013 Nurse visit Heena Dumont MD 10/12/2013 Office visit Kaylynn Mendez PHYSICIAN SCRIBE 10/02/2013 Office visit Heena Dumont MD 09/20/2013 Voided Heena Dumont MD 09/20/2013 Nurse visit Kaylynn Walker PHYSICIAN SCRIBE 09/14/2013 Office visit Kaylynn Walker PHYSICIAN SCRIBE 09/05/2013 Office visit Sundeep Russell PHYSICIAN SCRIBE 09/04/2013 Nurse visit Kaylynn Mendez PHYSICIAN SCRIBE 08/31/2013 Office visit Kaylynn Walker PHYSICIAN SCRIBE 08/23/2013 Office visit Heena Dumont MD 08/10/2013 Office visit Kaylynn Mendez PHYSICIAN SCRIBE 07/25/2013 Office visit Kaylynn Walker PHYSICIAN SCRIBE 07/18/2013 Office visit Kaylynn Walker PHYSICIAN SCRIBE 07/12/2013 Office visit Kaylynn Walker PHYSICIAN SCRIBE 06/28/2013 Nurse visit Kaylynn Walker PHYSICIAN SCRIBE 06/14/2013 Nurse visit Kaylynn Walker PHYSICIAN SCRIBE 06/08/2013 Nurse visit Kaylynn Walker PHYSICIAN SCRIBE 05/31/2013 Nurse visit Chadd Norris DO 05/18/2013 Office visit Terese Davidson MD 05/16/2013 Office visit Kaylynn Mendez PHYSICIAN SCRIBE 05/09/2013 Office visit Kaylynn Walker PHYSICIAN SCRIBE 04/29/2013 [facility] John Hoskins MD 04/25/2013 Nurse visit Kaylynn Walker PHYSICIAN SCRIBE 04/17/2013 Office visit Kaylynn Mendez PHYSICIAN SCRIBE 04/03/2013 Office visit Terese Davidson MD 04/03/2013 Nurse visit Kaylynn Mendez PHYSICIAN SCRIBE 03/28/2013 Office visit Sundeep Russell PHYSICIAN SCRIBE 03/21/2013 Office visit Kaylynn Walker PHYSICIAN SCRIBE 03/20/2013 Office visit Terese Davidson MD 03/14/2013 Nurse visit Kaylynn Mendez PHYSICIAN SCRIBE 03/05/2013 Nurse visit Kaylynn Andrea PHYSICIAN SCRIBE 02/19/2013 Office visit Terese Davidson MD 02/16/2013 Nurse visit Kaylynn Andrea PHYSICIAN SCRIBE 02/09/2013 Office visit Sundeep Russell PHYSICIAN SCRIBE 02/08/2013 Nurse visit Kaylynn Andrea PHYSICIAN SCRIBE 02/01/2013 Nurse visit Kaylynn Andrea PHYSICIAN SCRIBE 01/26/2013 Nurse visit Sabrina Andrea 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 01/25/2013 Office visit Kaylynn Mendez PHYSICIAN SCRIBE 01/22/2013 Office visit Yoan Castaneda MD 01/18/2013 Nurse visit Kaylynn Andrea PHYSICIAN SCRIBE 01/11/2013 Nurse visit Kaylynn Andrea PHYSICIAN SCRIBE 01/05/2013 Nurse visit Kaylynn Andrea PHYSICIAN SCRIBE 12/29/2012 Office visit Kaylynn Andrea PHYSICIAN SCRIBE 11/27/2012 Office visit Kaylynn Mendez PHYSICIAN SCRIBE 11/08/2012 Voided Odell Tierney MD 11/08/2012 Office visit Odell Tierney MD 11/07/2012 Office visit Kaylynn Mendez PHYSICIAN SCRIBE 10/31/2012 Office visit Kaylynn Mendez PHYSICIAN SCRIBE 10/31/2012 [facility] John Hoskins MD 10/19/2012 Office visit Genoveva Ayala PHYSICIAN SCRIBE 10/10/2012 Office visit Kaylynn Mendez PHYSICIAN SCRIBE 10/03/2012 Office visit Kaylynn Mendez PHYSICIAN SCRIBE 09/26/2012 Office visit Kaylynn Mendez PHYSICIAN SCRIBE 09/06/2012 Office visit Odell Tierney MD 09/06/2012 Office visit Kaylynn Mendez PHYSICIAN SCRIBE 08/31/2012 Voided Kaylynn Mendez PHYSICIAN SCRIBE 07/28/2012 Office visit Kaylynn Mendez PHYSICIAN SCRIBE 07/27/2012 Office visit David Joyner DO 07/20/2012 [facility] David Joyner DO 07/13/2012 [facility] David Joyner DO 07/11/2012 Office visit Kaylynn Mendez PHYSICIAN SCRIBE 06/27/2012 [facility] Odell Tierney MD 06/21/2012 Office visit Odell Tierney MD 06/21/2012 Office visit David Joyner DO 06/20/2012 Office visit Brittni Yanez PHYSICIAN SCRIBE 06/06/2012 Office visit Odell Tierney MD 05/03/2012 Office visit Kaylynn Mendez PHYSICIAN SCRIBE 04/28/2012 Office visit Brittni Yanez PHYSICIAN SCRIBE 04/11/2012 Office visit Kaylynn Mendez PHYSICIAN SCRIBE 04/06/2012 [facility] John Hoskins MD 03/30/2012 Office visit Kaylynn Mendez PHYSICIAN SCRIBE 03/15/2012 Office visit Odell Tierney MD 03/15/2012 Office visit Kaylynn Mendez PHYSICIAN SCRIBE 02/09/2012 Office visit Kaylynn Walker PHYSICIAN SCRIBE 12/23/2011 Office visit Kaylynn Walker PHYSICIAN SCRIBE 11/02/2011 Office visit Kaylynn Walker PHYSICIAN SCRIBE 10/14/2011 Office visit Kaylynn Walker PHYSICIAN SCRIBE 09/27/2011 Office visit Kaylynn Walker PHYSICIAN SCRIBE 08/19/2011 [facility] John Hoskins MD 08/18/2011 Office visit Kaylynn Walker PHYSICIAN SCRIBE 08/18/2011 [facility] John Hoskins MD 08/02/2011 Office visit Kaylynn Walker PHYSICIAN SCRIBE 07/08/2011 Office visit Kaylynn Andrea PHYSICIAN SCRIBE 07/05/2011 Office visit Odell Tierney MD 06/15/2011 Office visit Kaylynn Walker PHYSICIAN SCRIBE 05/14/2011 Office visit Kaylynn Mendez PHYSICIAN SCRIBE 05/11/2011 Office visit Odell Tierney MD 04/28/2011 Office visit Kaylynn Mendez PHYSICIAN SCRIBE 03/02/2011 Office visit Chadd Norris DO 02/17/2011 [...]
--- OUTSIDE RECORDS SUMMARY | 2018-05-09 16:43 | XMS REPORT ---
Author Brittni Alvarez Organization [facility] Address [address] [place], [place] [id number] Care Team Providers Care Group Exercise Manager Name Role Phone Brittni Yanez PCP Unavailable [...] the upper arm, upper thigh or abdomen baclofen 10 mg oral tablet 01/16/2015 03/17/2015 1 TABLET BY ORAL ROUTE BEFORE BED PRN MUSCLE SPASM promethazine 25 mg oral tablet 01/27/2015 TAKE 1 TABLET BY MOUTH TWICE DAILY oxycodone 5 mg oral tablet 02/13/2015 03/15/2015 take 1 tablet by oral route every 12 hours for 30 days clobetasol-emollient 0.05 % topical cream 02/13/2015 02/27/2015 apply to affected area(s) by topical route daily for 14 days Ambien CR 12.5 mg oral tablet,ext release multiphase 02/25/2015 03/27/2015 take 1 tablet (12.5 mg) by oral route once daily at bedtime for 30 days promethazine 25 mg oral tablet 02/25/2015 TAKE 1 TABLET BY MOUTH TWICE DAILY Name Start Date Expiration Date SIG Comments [...] 08/27/2014 use as directed for 99 days [place] 5-325 mg oral tablet 06/17/2014 06/27/2014 take [...] a day as needed for 30 days awjzmmhb-johcgpege-DP 3.5-10,000-1 mg/mL-unit/mL-% otic drops,suspension 201401/08/2015 instill 4 [...] HC BMI BSA BMI Percentile O2 Sat(%) 02/26/2015 11:23:00 AM 114 mmHg 80 mmHg [...] Reviewed 04/28/2011 12:00 AM Decadron 1 mg ND#[id number] (Jr) Reviewed 04/28/2011 12:00 AM Depo-Medrol 80 mg NDC#[id number]-Wpienuue Reviewed 05/11/2011 12:00 AM N BLOCK INJ OCCIPITAL Reviewed 05/11/2011 12:00 AM Kenalog Rm-[address]-20 ANNA Reviewed 06/15/2011 12:00 AM COMPLETE CBC W/AUTO DIFF WBC Returned 06/15/2011 12:00 AM COMPREHEN METABOLIC PANEL Returned 07/08/2011 12:00 AM THER/PROPH/DIAG INJ SC/IM Reviewed 07/08/2011 12:00 AM Toradol,15mg ND#[id number], [place] Reviewed 07/08/2011 12:00 AM Phenergan 50 Mg Im Ndc 6393-9503-94 [place] Reviewed 08/02/2011 12:00 AM THER/PROPH/DIAG INJ SC/IM Reviewed 08/02/2011 12:00 AM Decadron 1 mg NDC#[id number] (Jr) Reviewed 08/02/2011 12:00 AM Depo-Medrol 80 mg NDC#[id number]-Ngpdlyzp Reviewed 09/27/2011 12:00 AM THER/PROPH/DIAG INJ SC/IM Reviewed 09/27/2011 12:00 AM Depo-Medrol 80 mg NDC#[id number]-Koidsdtr Reviewed 10/14/2011 12:00 AM X-RAY EXAM OF ABDOMEN Returned 10/14/2011 12:00 AM URINALYSIS AUTO W/O SCOPE Reviewed 12/23/2011 12:00 AM THER/PROPH/DIAG INJ SC/IM Reviewed 12/23/2011 12:00 AM Decadron 1 mg NDC#16037393037 (Jr) Reviewed 12/23/2011 12:00 AM Depo-Medrol 80 mg NDC#[id number]-Rdxtexpu Reviewed 02/09/2012 12:00 AM THER/PROPH/DIAG INJ SC/IM Reviewed 02/09/2012 12:00 AM Decadron 1 mg NDC#[id number] (Jr) Reviewed 02/09/2012 12:00 AM Depo-Medrol 80 mg NDC#[id number]-Epbrpyvf Reviewed 03/15/2012 12:00 AM N BLOCK INJ OCCIPITAL Reviewed 03/15/2012 12:00 AM Kenalog Vc-[address]-20 ANNA Reviewed 04/11/2012 12:00 AM COMPLETE CBC W/AUTO DIFF WBC Returned 04/11/2012 12:00 AM COMPREHEN METABOLIC PANEL Returned 04/11/2012 12:00 AM LIPID PANEL Returned 04/11/2012 12:00 AM ASSAY THYROID STIM HORMONE Returned 06/20/2012 12:00 AM THER/PROPH/DIAG INJ SC/IM Reviewed 06/20/2012 12:00 AM Decadron, Per 1 Mg ND# [address]-09 Reviewed 06/20/2012 12:00 AM Depo-Medrol, Per 80 Mg ND#2876-3414-88 Reviewed 09/06/2012 12:00 AM N BLOCK INJ OCCIPITAL Reviewed 09/06/2012 12:00 AM Kenalog Yo-[address]-20 ANNA Reviewed 09/06/2012 12:00 AM X-RAY EXAM RIBS UNI 2 VIEWS Returned 09/26/2012 12:00 AM THER/PROPH/DIAG INJ SC/IM Reviewed 09/26/2012 12:00 AM Decadron, Per 1 Mg ND# [address]-38 Reviewed 09/26/2012 12:00 AM Depo-Medrol, Per 80 Mg ND#6705-4539-32 Reviewed 10/03/2012 12:00 AM URINALYSIS AUTO W/O SCOPE Reviewed 10/03/2012 12:00 AM THER/PROPH/DIAG INJ SC/IM Reviewed 10/03/2012 12:00 AM Toradol 60 Mg ND#8101-2365-45 Reviewed 10/03/2012 12:00 AM Phenergan, 25Mg ND#5397-8357-46 Reviewed 10/19/2012 12:00 AM N BLOCK INJ OCCIPITAL Reviewed 10/19/2012 12:00 AM Kenalog, Per 10 Mg ND#6257-7001-07 Reviewed 10/19/2012 12:00 AM Toradol 30 Mg ND#3351-9639-42 Reviewed 10/19/2012 12:00 AM THER/PROPH/DIAG INJ SC/IM Reviewed 10/31/2012 12:00 AM COMPLETE CBC W/AUTO DIFF WBC Returned 10/31/2012 12:00 AM COMPREHEN METABOLIC PANEL Returned 10/31/2012 12:00 AM LIPID PANEL Returned 11/03/2012 12:[address] THORAX W/O & W/DYE Returned 11/08/2012 12:00 AM N BLOCK INJ OCCIPITAL Reviewed 11/08/2012 12:00 AM Kenalog Go-[address]-20 ANNA Reviewed 11/27/2012 12:00 AM COMPLETE CBC [...] Per 1 Mg [facility]# [address]-28 Reviewed 01/25/2013 12:00 AM Depo-Medrol, Per 80 Mg [facility]#1400-3643-74 Reviewed 01/26/2013 12:00 AM IMMUNOTHERAPY INJECTIONS Returned [...] 12:00 AM Decadron, Per 1 Mg ND# [address]-96 Reviewed 05/16/2013 12:00 AM Depo-Medrol, Per 80 Mg [facility]#8217-8257-98 Reviewed 05/31/2013 12:00 AM IMMUNOTHERAPY INJECTIONS Reviewed 06/08/2013 12:00 AM IMMUNOTHERAPY INJECTIONS Reviewed 06/14/2013 12:00 AM IMMUNOTHERAPY INJECTIONS Reviewed 06/28/2013 12:00 AM IMMUNOTHERAPY INJECTIONS Reviewed 07/12/2013 12:00 AM X-RAY EXAM RIBS UNI 2 VIEWS Returned 07/18/2013 12:00 AM Toradol 60 Mg [facility]#9137-9407-02 Reviewed 07/18/2013 12:00 AM THER/PROPH/DIAG INJ SC/IM Reviewed 08/23/2013 12:00 AM COMPLETE CBC W/AUTO DIFF WBC Reviewed 08/23/2013 12:00 AM COMPREHEN METABOLIC PANEL Reviewed 08/23/2013 12:00 AM LIPID PANEL Reviewed 08/31/2013 12:00 AM X-RAY EXAM OF LOWER LEG Returned 09/04/2013 12:00 AM IMMUNOTHERAPY INJECTIONS Reviewed 09/14/2013 12:00 AM THER/PROPH/DIAG INJ SC/IM Reviewed 09/14/2013 12:00 AM Decadron, Per 1 Mg [facility]# [address]-05 Reviewed 09/14/2013 12:00 AM Depo-Medrol, Per 80 Mg [facility]#0980-4907-52 Reviewed 09/20/2013 12:00 AM IMMUNOTHERAPY INJECTIONS Reviewed [...] INJ OCCIPITAL Reviewed 12/10/2009 12:00 AM Kenalog Bg-[address]-20 ANNA Reviewed 12/16/2009 12:00 AM HIV-1ANTIBODY Reviewed 12/16/2009 12:00 AM COMPLETE CBC W/AUTO DIFF WBC Reviewed 12/16/2009 12:00 AM METABOLIC PANEL TOTAL CA Reviewed 12/16/2009 12:00 AM Type and screen Reviewed 12/16/2009 12:00 AM PROTHROMBIN TIME Reviewed 12/16/2009 12:00 AM THROMBOPLASTIN TIME PARTIAL Reviewed 03/18/2010 12:00 AM DRAIN/INJ JOINT/BURSA W/O US Reviewed 03/18/2010 12:00 AM Kenalog Tr-[address]-20 ANNA Reviewed 11/21/2013 12:00 AM RADEX HAND MINIMUM 3 VIEWS Returned 06/03/2010 12:00 AM INJ TRIGGER POINT 1/2 MUSCL Reviewed 06/03/2010 12:00 AM Kenalog per 10Mg Im-Nd#[address]-89(Niall) Reviewed 12/05/2013 12:00 AM COMPLETE CBC W/AUTO [...] Reviewed 07/23/2010 12:00 AM Kenalog per 10Mg Im-Nd#[address]-57(Niall) Reviewed 2014 12:00 AM COMPLETE CBC W/AUTO [...] INJ OCCIPITAL Reviewed 10/01/2010 12:00 AM Kenalog Ox-[address]-20 ANNA Reviewed 07/25/2014 12:00 AM THER/PROPH/DIAG INJ [...] 0.60 mg/dLCALCIUM 10.90 mg/ dLeGFR >60 mL/min/1.73 [id number] 45.0 U/L 08/31/2013 10:54 AM GLUCOSE 255.0 [...] 0.40 mg/ dLCALCIUM 10.60 mg/dLeGFR >60 mL/min/1.73 [id number] 369.0 mg/ dLCHOLESTEROL 153.0 mg/dLHDL 26.0 mg/dLLDL [...] BILI 0.30 mg/dLCALCIUM 10.0 mg/dLeGFR >60 mL/min/1.73 [id number] YELLOW APPEARANCE CLEAR SPEC GRAV 1.010 pH 5.5 PROTEIN NEGATIVE GLUCOSE NEGATIVE KETONE NEGATIVE BILIRUBIN NEGATIVE BLOOD NEGATIVE NITRITE NEGATIVE LEUK SCREEN NEGATIVE HGB A1C 6.30 %Est Avg Glucose 134.1 mg/dLMICROALBUMIN UR <0.5 MG/DL 02/13/2015 4:38 PM RMSF, IgG, EIA Negative [facility] Spotted [...] 141 Influenza 04/24/2014 [employer]C Fluzone [id number] Intramuscular Left Upper Arm 02/27/2014 01/15/2014 141 Influenza 02/13/2015 [employer] paste[employer] PMC Fluzone [id number] Intramuscular Left Deltoid 02/13/2015 01/03/2015 140 History [...] left Feb 12 2014 4:22PM Vertigo b 2014 4:22PM Eustachian tube dysfunction Aug 01 [...] 3:38PM Viral Gastroenteritis Feb 26 2015 11:24AM Payers Insurance Name Company Name Plan Name Plan Number Policy Number Policy Group Number Start Date Medicare Part A Medicare Part A [id number] N/A [facility] Comm [id number] N/A [id number] [facility] Comm Plan of [id number] Wednesday, 2012 Medicare Part B [place] [id number] Monday, 2000 [place] [facility] Medical Assistance Pro [id number] Tuesday, 2009 History of Encounters Visit Date Visit Type Provider 02/26/2015 Office visit Brittni Yanez ANTENNA SPECIALIST 02/13/2015 Office visit Heena Dumont MD 01/15/2015 Office visit Brittni Yanez ANTENNA SPECIALIST 01/13/2015 Office visit Heena Dumont MD 01/08/[address] Carol Fowler MD 01/01/2015 Office visit Brittni Yanez ANTENNA SPECIALIST 12/13/2014 Office visit Heena Dumont MD 11/27/2014 Office visit Kaylynn Mendez ANTENNA SPECIALIST 11/14/2014 Office visit Heena Dumont MD 10/18/2014 Office visit Heena Dumont MD 10/17/2014 [facility] John Hoskins MD 10/09/2014 Office visit Heena Dumont MD 09/25/2014 Office visit Heena Dumont MD 09/17/2014 Office visit Kaylynn Mendez ANTENNA SPECIALIST 09/04/2014 Office visit Heena Dumont MD 08/28/2014 Office visit Kaylynn Mendez ANTENNA SPECIALIST 08/23/2014 [facility] John Hoskins MD 08/01/2014 Office visit Kaylynn Mendez ANTENNA SPECIALIST 07/29/2014 Office visit Heena Dumont MD 07/25/2014 Nurse visit Heena Dumont MD 07/17/2014 Office visit Kaylynn Mendez ANTENNA SPECIALIST 07/11/2014 Office visit Heena Dumont MD 07/01/2014 Office visit Heena Dumont MD 06/25/2014 Office visit Kaylynn Mendez ANTENNA SPECIALIST 06/12/2014 Office visit Kaylynn Mendez ANTENNA SPECIALIST 06/06/2014 Office visit Kaylynn Mendez ANTENNA SPECIALIST 05/27/2014 Office visit Heena Dumont MD 04/20/2014 Office visit Yesica Falcon ANTENNA SPECIALIST 03/29/2014 Office visit Na Jones ANTENNA SPECIALIST 03/15/2014 Office visit Heena Dumont MD 2014 Office visit Heena Dumont MD 2014 [facility] John Hoskins MD 02/27/2014 Nurse visit Heena Dumont MD 02/13/2014 Office visit Lena El ANTENNA SPECIALIST 02/07/2014 Office visit Heena Dumont MD 02/03/2014 Office visit Na Jones ANTENNA SPECIALIST 01/30/2014 Office visit Kaylynn Walker ANTENNA SPECIALIST 01/24/2014 Office visit Sundeep Russell ANTENNA SPECIALIST 01/16/2014 Office visit Kaylynn Walker ANTENNA SPECIALIST 01/10/2014 Nurse visit Kaylynn Walker ANTENNA SPECIALIST 01/08/2014 Office visit Kaylynn Walker ANTENNA SPECIALIST 12/05/2013 Office visit Kaylynn Walker ANTENNA SPECIALIST 11/21/2013 Office visit Kaylynn Walker ANTENNA SPECIALIST 10/23/2013 Office visit Brittni Yanez ANTENNA SPECIALIST 10/17/2013 Nurse visit Heena Dumont MD 10/12/2013 Office visit Kaylynn Andrea ANTENNA SPECIALIST 10/02/2013 Office visit Heena Dumont MD 09/20/2013 Nurse visit Kaylynn Mendez ANTENNA SPECIALIST 09/20/2013 Voided Heena Dumont MD 09/14/2013 Office visit Kaylynn Walker ANTENNA SPECIALIST 09/05/2013 Office visit Sundeep Russell ANTENNA SPECIALIST 09/04/2013 Nurse visit Kaylynn Walker ANTENNA SPECIALIST 08/31/2013 Office visit Kaylynn Walker ANTENNA SPECIALIST 08/23/2013 Office visit Heena Dumont MD 08/10/2013 Office visit Kaylynn Walker ANTENNA SPECIALIST 07/25/2013 Office visit Kaylynn Walker ANTENNA SPECIALIST 07/18/2013 Office visit Kaylynn Walker ANTENNA SPECIALIST 07/12/2013 Office visit Kaylynn Walker ANTENNA SPECIALIST 06/28/2013 Nurse visit Kaylynn Walker ANTENNA SPECIALIST 06/14/2013 Nurse visit Kaylynn Walker ANTENNA SPECIALIST 06/08/2013 Nurse visit Kaylynn Walker ANTENNA SPECIALIST 05/31/2013 Nurse visit Chadd Norris DO 05/18/2013 Office visit Terese Davidson MD 05/16/2013 Office visit Kaylynn Mendez ANTENNA SPECIALIST 05/09/2013 Office visit Kaylynn Mendez ANTENNA SPECIALIST 04/29/2013 [facility] John Hoskins MD 04/25/2013 Nurse visit Kaylynn Walker ANTENNA SPECIALIST 04/17/2013 Office visit Kaylynn Walker ANTENNA SPECIALIST 04/03/2013 Nurse visit Kaylynn Mendez ANTENNA SPECIALIST 04/03/2013 Office visit Terese Davidson MD 03/28/2013 Office visit Sundeep Russell ANTENNA SPECIALIST 03/21/2013 Office visit Kaylynn Mendez ANTENNA SPECIALIST 03/20/2013 Office visit Terese Davidson MD 03/14/2013 Nurse visit Kaylynn Mendez ANTENNA SPECIALIST 03/05/2013 Nurse visit Kaylynn Mendez ANTENNA SPECIALIST 02/19/2013 Office visit Terese Davidson MD 02/16/2013 Nurse visit Kaylynn Mendez ANTENNA SPECIALIST 02/09/2013 Office visit Sundeep Russell ANTENNA SPECIALIST 02/08/2013 Nurse visit Kaylynn Mendez ANTENNA SPECIALIST 02/01/2013 Nurse visit Kaylynn Walker ANTENNA SPECIALIST 01/26/2013 Nurse visit Sabrina Andrea WOOD CABINETMAKER 01/25/2013 Office visit Kaylynn Mendez ANTENNA SPECIALIST 01/22/2013 Office visit Yoan Castaneda MD 01/18/2013 Nurse visit Kaylynn Walker ANTENNA SPECIALIST 01/11/2013 Nurse visit Kaylynn Walker ANTENNA SPECIALIST 01/05/2013 Nurse visit Kaylynn Walker ANTENNA SPECIALIST 12/29/2012 Office visit Kaylynn Walker ANTENNA SPECIALIST 11/27/2012 Office visit Kaylynn Walker ANTENNA SPECIALIST 11/08/2012 Office visit Odell Tierney MD 11/08/2012 Voided Odell Tierney MD 11/07/2012 Office visit Kaylynn Mendez ANTENNA SPECIALIST 10/31/2012 [facility] John Hoskins MD 10/31/2012 Office visit Kaylynn Mendez ANTENNA SPECIALIST 10/19/2012 Office visit Genoveva Ayala ANTENNA SPECIALIST 10/10/2012 Office visit Kaylynn Mendez ANTENNA SPECIALIST 10/03/2012 Office visit Kaylynn Walker ANTENNA SPECIALIST 09/26/2012 Office visit Kaylynn Mendez ANTENNA SPECIALIST 09/06/2012 Office visit Kaylynn Mendez ANTENNA SPECIALIST 09/06/2012 Office visit Odell Tierney MD 08/31/2012 Voided Kaylynn Mendez ANTENNA SPECIALIST 07/28/2012 Office visit Kaylynn Mendez ANTENNA SPECIALIST 07/27/2012 Office visit David Joyner DO 07/20/2012 [facility] DO 07/13/2012 [facility] DO 07/11/2012 Office visit Kaylynn Mendez ANTENNA SPECIALIST 06/27/2012 [facility] Odell Tierney MD 06/21/2012 Office visit David Joyner DO 06/21/2012 Office visit Odell Tierney MD 06/20/2012 Office visit Brittni Yanez ANTENNA SPECIALIST 06/06/2012 Office visit Odell Tierney MD 05/03/2012 Office visit Kaylynn Mendez ANTENNA SPECIALIST 04/28/2012 Office visit Brittni Yanez ANTENNA SPECIALIST 04/11/2012 Office visit Kaylynn Mendez ANTENNA SPECIALIST 04/06/2012 [facility] John Hoskins MD 03/30/2012 Office visit Kaylynn Mendez ANTENNA SPECIALIST 03/15/2012 Office visit Kaylynn Mendez ANTENNA SPECIALIST 03/15/2012 Office visit Odell Tierney MD 02/09/2012 Office visit Kaylynn Mendez ANTENNA SPECIALIST 12/23/2011 Office visit Kaylynn Mendez ANTENNA SPECIALIST 11/02/2011 Office visit Kaylynn Walker ANTENNA SPECIALIST 10/14/2011 Office visit Kaylynn Mendez ANTENNA SPECIALIST 09/27/2011 Office visit Kaylynn Mendez ANTENNA SPECIALIST 08/19/2011 [facility] John Hoskins MD 08/18/2011 [facility] Hoskins MD 08/18/2011 Office visit Kaylynn Mendez ANTENNA SPECIALIST 08/02/2011 Office visit Kaylynn Mendez ANTENNA SPECIALIST 07/08/2011 Office visit Kaylynn Mendez ANTENNA SPECIALIST 07/05/2011 Office visit Odell Tierney MD 06/15/2011 Office visit Kaylynn Mendez ANTENNA SPECIALIST 05/14/2011 Office visit Kaylynn Mendez ANTENNA SPECIALIST 05/11/2011 Office visit Odell Tierney MD 04/28/2011 Office visit Kaylynn Andrea ANTENNA SPECIALIST 03/02/2011 Office visit Chadd Norris DO 02/17/2011 Office visit Chadd Norris DO 01/19/2011 Office visit Odell Tierney MD 12/16/2010 Office visit Odell Tierney MD 12/02/2010 Office visit oYan Castaneda MD 11/24/2010 Office visit Chadd Norris [...] Surgery Yoan Castaneda MD 12/16/2009 Surgery Yoan Castanead MD 12/10/2009 Office visit Odell Tierney MD 11/26/2009 Office visit Yoan Castaneda MD 11/17/2009 Office visit Odell Tierney MD 11/10/2009 Office visit Chadd Norris DO
--- OUTSIDE RECORDS SUMMARY | 2018-05-09 16:48 | XMS REPORT ---
Author Author Heena Dumont Organization [facility] Address [address] [place], [place] [id number] Care Team Providers Care Flight/Transport Nurse Name Role Phone Heena Dumont PCP Heena Dumont PreferredProvider Allergies and Adverse Reactions Name Reaction Notes Aspirin Methadone Ultram Vicodin Plan of Treatment Planned Activity Comments Planned Date Planned Time Plan/Goal VIDEO SWALLOW 05/08/2015 12:00 AM CMP 09/16/2015 12:00 AM EKG (12-lead electrocardiogram) 11/13/2015 12:00 AM HEMOGLOBIN 12/16/2015 12:00 AM Chest x-ray, complete, four or more views 07/06/2016 12:00 AM EKG (12-lead electrocardiogram) 10/31/2012 12:00 [...] 01/19/2016 APPLY BY EXTERNAL ROUTE ONCE DAILY [employer] IQ Meter miscellaneous kit 01/21/2016 test 2 x daily, Dx: E11.9, 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 H3 [employer] Lancets 33 gauge miscellaneous misc 01/21/2016 use as directed [employer] miscellaneous strip 01/21/2016 07/19/2016 Test 2x daily, [...] route every 6 hours for 30 days Name Start Date [...] 08/27/2014 use as directed for 99 days [place] 5-325 mg oral tablet 06/17/2014 06/27/2014 take [...] baclofen 10 mg oral tablet 10/18/2014 02/15/2015 1 TABLET BY ORAL ROUTE 3 TIMES PER DAY PRN MUSCLE SPASM ondansetron 4 mg oral tablet,disintegrating 12/04/2014 01/03/2015 dissolve 1 tablet by oral route 2 times a day as needed for 30 days zymyvjuj-[id number]-UC 3.5-10,000-1 mg/mL-unit/mL-% otic drops,suspension 201401/08/2015 instill 4 [...] Reviewed 04/28/2011 12:00 AM Decadron 1 mg ND#[id number] (Jr) Reviewed 04/28/2011 12:00 AM Depo-Medrol 80 mg NDC#[id number]-Jsegyfaj Reviewed 09/02/2015 12:00 AM Toradol 60 Mg ND#4428-7415-80 Reviewed 09/02/2015 12:00 AM Phenergan, Up to 50 Mg RHC Medicaid Reviewed 09/16/2015 12:00 AM Toradol 60 Mg NDC#5977-2564-68 Reviewed 09/16/2015 12:00 AM Phenergan Up to 50 mg RHC Medicare Reviewed 05/11/2011 12:00 AM N BLOCK INJ OCCIPITAL Reviewed 05/11/2011 12:00 AM Kenalog Bi-136[address]-1951-20 ANNA Reviewed 11/13/2015 12:00 AM ASSAY OF [...] INJ SC/IM Reviewed 07/08/2011 12:00 AM Toradol,15mg NDC#[id number], [place] Reviewed 07/08/2011 12:00 AM Phenergan [address] [facility] 2654-5775-73 [place] Reviewed 01/21/2016 12:00 AM ECG MONIT/REPRT UP TO 48 HRS Returned 08/02/2011 12:00 AM THER/PROPH/DIAG INJ SC/IM Reviewed 08/02/2011 12:00 AM Decadron 1 mg NDC#[id number] (Jr) Reviewed 08/02/2011 12:00 AM Depo-Medrol 80 mg NDC#[id number]-Yeaquwik Reviewed 03/05/2016 12:00 AM COMPLETE CBC W/AUTO DIFF WBC Returned 03/05/2016 12:00 AM STREP A ASSAY W/OPTIC Returned 03/05/2016 12:00 AM C-REACTIVE PROTEIN Returned 03/18/2016 12:00 AM [facility] MEDICARE - flu vaccine administration Reviewed 03/18/2016 [...] Reviewed 09/27/2011 12:00 AM Depo-Medrol 80 mg NDC#[id number]-Lrtdctor Reviewed 10/14/2011 12:00 AM X-RAY EXAM OF ABDOMEN Reviewed 10/14/2011 12:00 AM URINALYSIS AUTO W/O SCOPE Reviewed 12/23/2011 12:00 AM THER/PROPH/DIAG INJ SC/IM Reviewed 12/23/2011 12:00 AM Decadron 1 mg NDC#[id number] (Jr) Reviewed 12/23/2011 12:00 AM Depo-Medrol 80 mg NDC#[id number]-Bingcnmr Reviewed 02/09/2012 12:00 AM THER/PROPH/DIAG INJ SC/IM Reviewed 02/09/2012 12:00 AM Decadron 1 mg NDC#[id number] (Jr) Reviewed 02/09/2012 12:00 AM Depo-Medrol 80 mg NDC#[id number]-Wykchgto Reviewed 03/15/2012 12:00 AM N BLOCK INJ OCCIPITAL Reviewed 03/15/2012 12:00 AM Kenalog Rt-[address]-20 ANNA Reviewed 04/11/2012 12:00 AM COMPLETE CBC W/AUTO DIFF WBC Reviewed 04/11/2012 12:00 AM COMPREHEN METABOLIC PANEL Reviewed 04/11/2012 12:00 AM LIPID PANEL Reviewed 04/11/2012 12:00 AM ASSAY THYROID STIM HORMONE Reviewed 06/20/2012 12:00 AM THER/PROPH/DIAG INJ SC/IM Reviewed 06/20/2012 12:00 AM Decadron, Per 1 Mg ND# [address]-05 Reviewed 06/20/2012 12:00 AM Depo-Medrol, Per 80 Mg ND#0902-3805-04 Reviewed 09/06/2012 12:00 AM N BLOCK INJ OCCIPITAL Reviewed 09/06/2012 12:00 AM Kenalog Lh-[address]-20 ANNA Reviewed 09/06/2012 12:00 AM X-RAY EXAM RIBS UNI 2 VIEWS Reviewed 09/26/2012 12:00 AM THER/PROPH/DIAG INJ SC/IM Reviewed 09/26/2012 12:00 AM Decadron, Per 1 Mg ND# [address]-96 Reviewed 09/26/2012 12:00 AM Depo-Medrol, Per 80 Mg ND#7421-1912-02 Reviewed 10/03/2012 12:00 AM URINALYSIS AUTO W/O SCOPE Reviewed 10/03/2012 12:00 AM THER/PROPH/DIAG INJ SC/IM Reviewed 10/03/2012 12:00 AM Toradol 60 Mg ND#2575-9176-56 Reviewed 10/03/2012 12:00 AM Phenergan, 25Mg ND#8101-7232-55 Reviewed 10/19/2012 12:00 AM N BLOCK INJ OCCIPITAL Reviewed 10/19/2012 12:00 AM Kenalog, Per 10 Mg ND#6872-8704-03 Reviewed 10/19/2012 12:00 AM Toradol 30 Mg NDC#2368-1061-14 Reviewed 10/19/2012 12:00 AM THER/PROPH/DIAG INJ SC/IM Reviewed 10/31/2012 12:00 AM COMPLETE CBC W/AUTO DIFF WBC Reviewed 10/31/2012 12:00 AM COMPREHEN METABOLIC PANEL Reviewed 10/31/2012 12:00 AM LIPID PANEL Reviewed 11/03/2012 12:[address] THORAX W/O & W/DYE Reviewed 11/08/2012 12:00 AM N BLOCK INJ OCCIPITAL Reviewed 11/08/2012 12:00 AM Kenalog Qc-[address]-20 ANNA Reviewed 11/27/2012 12:00 AM COMPLETE CBC [...] Per 1 Mg [facility]# [address]-44 Reviewed 01/25/2013 12:00 AM Depo-Medrol, Per 80 Mg [facility]#8065-4470-99 Reviewed 01/26/2013 12:00 AM IMMUNOTHERAPY INJECTIONS Reviewed [...] Per 1 Mg [facility]# [address]-45 Reviewed 05/16/2013 12:00 AM Depo-Medrol, Per 80 Mg [facility]#3575-0222-85 Reviewed 05/31/2013 12:00 AM IMMUNOTHERAPY INJECTIONS Reviewed 06/08/2013 12:00 AM IMMUNOTHERAPY INJECTIONS Reviewed 06/14/2013 12:00 AM IMMUNOTHERAPY INJECTIONS Reviewed 06/28/2013 12:00 AM IMMUNOTHERAPY INJECTIONS Reviewed 07/12/2013 12:00 AM X-RAY EXAM RIBS UNI 2 VIEWS Reviewed 07/18/2013 12:00 AM Toradol 60 Mg [facility]#6142-2856-86 Reviewed 07/18/2013 12:00 AM THER/PROPH/DIAG INJ SC/IM Reviewed 08/23/2013 12:00 AM COMPLETE CBC W/AUTO DIFF WBC Reviewed 08/23/2013 12:00 AM COMPREHEN METABOLIC PANEL Reviewed 08/23/2013 12:00 AM LIPID PANEL Reviewed 08/31/2013 12:00 AM X-RAY EXAM OF LOWER LEG Reviewed 09/04/2013 12:00 AM IMMUNOTHERAPY INJECTIONS Reviewed 09/14/2013 12:00 AM THER/PROPH/DIAG INJ SC/IM Reviewed 09/14/2013 12:00 AM Decadron, Per 1 Mg [facility]# [address]-15 Reviewed 09/14/2013 12:00 AM Depo-Medrol, Per 80 Mg [facility]#0162-4876-02 Reviewed 09/20/2013 12:00 AM IMMUNOTHERAPY INJECTIONS Reviewed [...] INJ OCCIPITAL Reviewed 12/10/2009 12:00 AM Kenalog Kb-[address]-20 ANNA Reviewed 12/16/2009 12:00 AM HIV-1ANTIBODY Reviewed 12/16/2009 12:00 AM COMPLETE CBC W/AUTO DIFF WBC Reviewed 12/16/2009 12:00 AM METABOLIC PANEL TOTAL CA Reviewed 12/16/2009 12:00 AM Type and screen Reviewed 12/16/2009 12:00 AM PROTHROMBIN TIME Reviewed 12/16/2009 12:00 AM THROMBOPLASTIN TIME PARTIAL Reviewed 03/18/2010 12:00 AM DRAIN/INJ JOINT/BURSA W/O US Reviewed 03/18/2010 12:00 AM Kenalog Mf-[address]-20 ANNA Reviewed 11/21/2013 12:00 AM RADEX HAND MINIMUM 3 VIEWS Reviewed 06/03/2010 12:00 AM INJ TRIGGER POINT 1/2 MUSCL Reviewed 06/03/2010 12:00 AM Kenalog per 10Mg Im-Nd#[address]-99(Niall) Reviewed 12/05/2013 12:00 AM COMPLETE CBC W/AUTO [...] Reviewed 07/23/2010 12:00 AM Kenalog per 10Mg Im-[facility]#[address]-96(Niall) Reviewed 2014 12:00 AM COMPLETE CBC W/AUTO [...] INJ OCCIPITAL Reviewed 10/01/2010 12:00 AM Kenalog Px-[address]-20 ANNA Reviewed 07/25/2014 12:00 AM THER/PROPH/DIAG INJ [...] Quant,IgM <0.80 RMSF , IgG, EIA Negative [facility] Spotted Fever,IgM 0.51 E. chaffeensis [...] 141 Influenza 04/24/2014 sanofi pasteur PMC Fluzone [id number] Intramuscular Left Upper Arm 02/27/2014 01/15/2014 141 Influenza 02/13/2015 sanofi pasteur PMC Fluzone [id number] Intramuscular Left Deltoid 02/13/2015 01/03/2015 140 Tdap 06/06/2015 [employer] SKB BOOSTRIX [id number] Intramuscular Left Deltoid 06/06/2015 07/23/2014 115 Influenza 03/18/2016 sanofi pasteur PMC Fluzone [id number] Intramuscular Left Deltoid 03/17/2016 01/03/2015 141 History [...] 24 2014 5:07PM Diabetes Mellitus, Type II Sep 3 2014 1:58PM Allergic rhinitis Jan 30 2014 [...] Tendon dysfunction Feb 2014 3:51PM Osteoporosis Feb 2 2014 3:51PM Elevated liver enzymes Feb 2014 [...] 2016 10:48AM Cough Jul 06 2016 10:48AM Payers Insurance Name Company Name Plan Name Plan Number Policy Number Policy Group Number Start Date Medicare RHC Medicare RHC [id number] N/A [facility] Comm [id number] N/A Medicare Part A Medicare - Lab/ay [id number] N/A Medicare Part B Medicare Of [place] [id number] Monday, February 28, 2000 [place] [employer] [place] [employer] [place] [id number] Tuesday, November 10, 2009 Medicare Part A Medicare Part A [id number] N/A [place] [employer] - RHC [place] Comb[employer] Prog - [facility] [id number] May [facility] Comm Plan of [id number] Wednesday, May 30, 2012 History of Encounters Visit Date Visit Type Provider 07/06/2016 Office visit Heena Dumont MD 06/18/2016 Office visit Kaylynn Mendez APRN 06/07/2016 Office visit Sundeep Russell APRN 06/04/2016 Office visit Heena Dumont MD 05/13/2016 Office visit Heena Dumont MD 05/03/2016 Office visit Heena Dumont MD 04/26/2016 Office visit Kaylynn Mendez COMPUTER INFORMATION SYSTEMS INSTRUCTOR 04/14/2016 Office visit Heena Dumont MD 04/13/2016 Office visit Kaylynn Mendez COMPUTER INFORMATION SYSTEMS INSTRUCTOR 04/02/2016 Office visit Lena El COMPUTER INFORMATION SYSTEMS INSTRUCTOR 04/02/2016 Office visit Heena Dumont MD 03/26/2016 Office visit Yesica Falcon COMPUTER INFORMATION SYSTEMS INSTRUCTOR 03/17/2016 Office visit Heena Dumont MD 03/05/2016 Office visit Kaylynn Mendez COMPUTER INFORMATION SYSTEMS INSTRUCTOR 02/16/2016 Office visit Heena Dumont MD 02/14/2016 Office visit Na Jones COMPUTER INFORMATION SYSTEMS INSTRUCTOR 01/16/2016 Office visit Heena Dumont MD 12/16/2015 Office visit Heena Dumont MD 11/24/2015 Office visit Kaylynn Mendez COMPUTER INFORMATION SYSTEMS INSTRUCTOR 11/18/2015 Office visit Heena Dumont MD 11/03/2015 Office visit Sundeep Russell COMPUTER INFORMATION SYSTEMS INSTRUCTOR 10/20/2015 Office visit Kaylynn Mendez COMPUTER INFORMATION SYSTEMS INSTRUCTOR 09/23/2015 Office visit Kaylynn Mendez COMPUTER INFORMATION SYSTEMS INSTRUCTOR 09/16/[address] Pepe Figueroa MD 09/02/2015 Office visit Kaylynn Mendez COMPUTER INFORMATION SYSTEMS INSTRUCTOR 09/01/2015 Office visit Kaylynn Mendez COMPUTER INFORMATION SYSTEMS INSTRUCTOR 07/30/2015 Office visit Heena Dumont MD 07/15/2015 Office visit Kaylynn Mendez COMPUTER INFORMATION SYSTEMS INSTRUCTOR 07/04/2015 Office visit Heena Dumont MD 06/06/2015 Office visit Heena Dumont MD 06/06/2015 Office visit Kaylynn Mendez COMPUTER INFORMATION SYSTEMS INSTRUCTOR 06/02/2015 Office visit Kaylynn Mendez COMPUTER INFORMATION SYSTEMS INSTRUCTOR 05/26/2015 Office visit Kaylynn Mendez COMPUTER INFORMATION SYSTEMS INSTRUCTOR 05/20/2015 Office visit Kaylynn Mendez COMPUTER INFORMATION SYSTEMS INSTRUCTOR 05/08/2015 Office visit Heena Dumont MD 05/06/2015 Office visit Kaylynn Mendez COMPUTER INFORMATION SYSTEMS INSTRUCTOR 04/29/2015 Office visit Kaylynn Mendez COMPUTER INFORMATION SYSTEMS INSTRUCTOR 03/27/2015 Voided Brittni Yanez COMPUTER INFORMATION SYSTEMS INSTRUCTOR 03/21/2015 Office visit Heena Dumont MD 03/12/2015 Office visit Kaylynn Mednez COMPUTER INFORMATION SYSTEMS INSTRUCTOR 02/26/2015 Office visit Brittni Yanez COMPUTER INFORMATION SYSTEMS INSTRUCTOR 02/13/2015 Office visit Heena Dumont MD 01/15/2015 Office visit Brittni Yanez COMPUTER INFORMATION SYSTEMS INSTRUCTOR 01/13/2015 Office visit Heena Dumont MD 01/08/[address] Carol Fowler MD 01/01/2015 Office visit Brittni Yanez COMPUTER INFORMATION SYSTEMS INSTRUCTOR 12/13/2014 Office visit Heena Dumont MD 11/27/2014 Office visit Kaylynn Mendez COMPUTER INFORMATION SYSTEMS INSTRUCTOR 11/14/2014 Office visit Heena Dumont MD 10/18/2014 Office visit Heena Dumont MD 10/17/2014 [facility] Eliseo Hoskins MD 10/09/2014 Office visit Heena Dumont MD 09/25/2014 Office visit Heena Dumont MD 09/17/2014 Office visit Kaylynn Mendez COMPUTER INFORMATION SYSTEMS INSTRUCTOR 09/04/2014 Office visit Heena Dumont MD 08/28/2014 Office visit Kaylynn Mendez COMPUTER INFORMATION SYSTEMS INSTRUCTOR 08/23/2014 [facility] Eliseo Hoskins MD 08/01/2014 Office visit Kaylynn Mendez COMPUTER INFORMATION SYSTEMS INSTRUCTOR 07/29/2014 Office visit Heena Dumont MD 07/25/2014 Nurse visit Heena Dumont MD 07/17/2014 Office visit Kaylynn Mendez COMPUTER INFORMATION SYSTEMS INSTRUCTOR 07/11/2014 Office visit Heena Dumont MD 07/01/2014 Office visit Heena Dumont MD 06/25/2014 Office visit Kaylynn Mendez COMPUTER INFORMATION SYSTEMS INSTRUCTOR 06/12/2014 Office visit Kaylynn Mendez COMPUTER INFORMATION SYSTEMS INSTRUCTOR 06/06/2014 Office visit Kaylynn Mendez COMPUTER INFORMATION SYSTEMS INSTRUCTOR 05/27/2014 Office visit Heena Dumont MD 04/20/2014 Office visit Yesica Falcon COMPUTER INFORMATION SYSTEMS INSTRUCTOR 03/29/2014 Office visit Na Jones COMPUTER INFORMATION SYSTEMS INSTRUCTOR 03/15/2014 Office visit Heena Dumont MD 2014 Office visit Heena Dumont MD 2014 [facility] Eliseo Hoskins MD 02/27/2014 Nurse visit Heena Dumont MD 02/13/2014 Office visit Lena El COMPUTER INFORMATION SYSTEMS INSTRUCTOR 02/07/2014 Office visit Heena Dumont MD 02/03/2014 Office visit Na Jones COMPUTER INFORMATION SYSTEMS INSTRUCTOR 01/30/2014 Office visit Kaylynn Mendez COMPUTER INFORMATION SYSTEMS INSTRUCTOR 01/24/2014 Office visit Sundeep Russell COMPUTER INFORMATION SYSTEMS INSTRUCTOR 01/16/2014 Office visit Kaylynn Mendez COMPUTER INFORMATION SYSTEMS INSTRUCTOR 01/10/2014 Nurse visit Kaylynn Mendez COMPUTER INFORMATION SYSTEMS INSTRUCTOR 01/08/2014 Office visit Kaylynn Mendez COMPUTER INFORMATION SYSTEMS INSTRUCTOR 12/05/2013 Office visit Kaylynn Mendez COMPUTER INFORMATION SYSTEMS INSTRUCTOR 11/21/2013 Office visit Kaylynn Mendez COMPUTER INFORMATION SYSTEMS INSTRUCTOR 10/23/2013 Office visit Brittni Yanez COMPUTER INFORMATION SYSTEMS INSTRUCTOR 10/17/2013 Nurse visit Heena Dumont MD 10/12/2013 Office visit Kaylynn Walker COMPUTER INFORMATION SYSTEMS INSTRUCTOR 10/02/2013 Office visit Heena Dumont MD 09/20/2013 Nurse visit Kaylynn Walker COMPUTER INFORMATION SYSTEMS INSTRUCTOR 09/20/2013 Voided Heena Dumont MD 09/14/2013 Office visit Kaylynn Walker COMPUTER INFORMATION SYSTEMS INSTRUCTOR 09/05/2013 Office visit Sundeep Russell COMPUTER INFORMATION SYSTEMS INSTRUCTOR 09/04/2013 Nurse visit Kaylynn Walker COMPUTER INFORMATION SYSTEMS INSTRUCTOR 08/31/2013 Office visit Kaylynn Walker COMPUTER INFORMATION SYSTEMS INSTRUCTOR 08/23/2013 Office visit Heena Dumont MD 08/10/2013 Office visit Kaylynn Walker COMPUTER INFORMATION SYSTEMS INSTRUCTOR 07/25/2013 Office visit Kaylynn Walker COMPUTER INFORMATION SYSTEMS INSTRUCTOR 07/18/2013 Office visit Kaylynn Walker COMPUTER INFORMATION SYSTEMS INSTRUCTOR 07/12/2013 Office visit Kaylynn Walker COMPUTER INFORMATION SYSTEMS INSTRUCTOR 06/28/2013 Nurse visit Kaylynn Walker COMPUTER INFORMATION SYSTEMS INSTRUCTOR 06/14/2013 Nurse visit Kaylynn Walker COMPUTER INFORMATION SYSTEMS INSTRUCTOR 06/08/2013 Nurse visit Kaylynn Walker COMPUTER INFORMATION SYSTEMS INSTRUCTOR 05/31/2013 Nurse visit Chadd Norris DO 05/18/2013 Office visit Terese Davidson MD 05/16/2013 Office visit Kaylynn Walker COMPUTER INFORMATION SYSTEMS INSTRUCTOR 05/09/2013 Office visit Kaylynn Walker COMPUTER INFORMATION SYSTEMS INSTRUCTOR 04/29/2013 [facility] Eliseo Hoskins MD 04/25/2013 Nurse visit Kaylynn Walker COMPUTER INFORMATION SYSTEMS INSTRUCTOR 04/17/2013 Office visit Kaylynn Walker COMPUTER INFORMATION SYSTEMS INSTRUCTOR 04/03/2013 Nurse visit Kaylynn Walker COMPUTER INFORMATION SYSTEMS INSTRUCTOR 04/03/2013 Office visit Terese Davidson MD 03/28/2013 Office visit Sundeep Russell COMPUTER INFORMATION SYSTEMS INSTRUCTOR 03/21/2013 Office visit Kaylynn Mendez COMPUTER INFORMATION SYSTEMS INSTRUCTOR 03/20/2013 Office visit Terese Davidson MD 03/14/2013 Nurse visit Kaylynn Walker COMPUTER INFORMATION SYSTEMS INSTRUCTOR 03/05/2013 Nurse visit Kaylynn Mendez COMPUTER INFORMATION SYSTEMS INSTRUCTOR 02/19/2013 Office visit Terese Davidson MD 02/16/2013 Nurse visit Kaylynn Walker COMPUTER INFORMATION SYSTEMS INSTRUCTOR 02/09/2013 Office visit Sundeep Russell COMPUTER INFORMATION SYSTEMS INSTRUCTOR 02/08/2013 Nurse visit Kaylynn Walker COMPUTER INFORMATION SYSTEMS INSTRUCTOR 02/01/2013 Nurse visit Kaylynn Walker COMPUTER INFORMATION SYSTEMS INSTRUCTOR 01/26/2013 Nurse visit Sabrina Mendez STEEPING PRESS OPERATOR 01/25/2013 Office visit Kaylynn Walker COMPUTER INFORMATION SYSTEMS INSTRUCTOR 01/22/2013 Office visit Yoan Castaneda MD 01/18/2013 Nurse visit Kaylynn Walker COMPUTER INFORMATION SYSTEMS INSTRUCTOR 01/11/2013 Nurse visit Kaylynn Walker COMPUTER INFORMATION SYSTEMS INSTRUCTOR 01/05/2013 Nurse visit Kaylynn Walker COMPUTER INFORMATION SYSTEMS INSTRUCTOR 12/29/2012 Office visit Kaylynn Walker COMPUTER INFORMATION SYSTEMS INSTRUCTOR 11/27/2012 Office visit Kaylynn Walker COMPUTER INFORMATION SYSTEMS INSTRUCTOR 11/08/2012 Office visit Odell Tierney MD 11/08/2012 Voided Odell Tierney MD 11/07/2012 Office visit Kaylynn Mendez COMPUTER INFORMATION SYSTEMS INSTRUCTOR 10/31/2012 [facility] Hoskins MD 10/31/2012 Office visit Kaylynn Walker COMPUTER INFORMATION SYSTEMS INSTRUCTOR 10/19/2012 Office visit Genoveva Ayala COMPUTER INFORMATION SYSTEMS INSTRUCTOR 10/10/2012 Office visit Kaylynn Walker COMPUTER INFORMATION SYSTEMS INSTRUCTOR 10/03/2012 Office visit Kaylynn Walker COMPUTER INFORMATION SYSTEMS INSTRUCTOR 09/26/2012 Office visit Kaylynn Walker COMPUTER INFORMATION SYSTEMS INSTRUCTOR 09/06/2012 Office visit Kaylynn Walker COMPUTER INFORMATION SYSTEMS INSTRUCTOR 09/06/2012 Office visit Odell Tierney MD 08/31/2012 Voided Kaylynn Andrea COMPUTER INFORMATION SYSTEMS INSTRUCTOR 07/28/2012 Office visit Kaylynn Walker COMPUTER INFORMATION SYSTEMS INSTRUCTOR 07/27/2012 Office visit David Joyner DO 07/20/2012 [facility] David Joyner DO 07/13/2012 [facility] David Joyner DO 07/11/2012 Office visit Kaylynn Walker COMPUTER INFORMATION SYSTEMS INSTRUCTOR 06/27/2012 [facility] Odell Tierney MD 06/21/2012 Office visit David Joyner DO 06/21/2012 Office visit Odell Tierney MD 06/20/2012 Office visit Brittni Yanez COMPUTER INFORMATION SYSTEMS INSTRUCTOR 06/06/2012 Office visit Odell Tierney MD 05/03/2012 Office visit Kaylynn Mendez COMPUTER INFORMATION SYSTEMS INSTRUCTOR 04/28/2012 Office visit Brittni Yanez COMPUTER INFORMATION SYSTEMS INSTRUCTOR 04/11/2012 Office visit Kaylynn Walker COMPUTER INFORMATION SYSTEMS INSTRUCTOR 04/06/2012 [facility] John Hoskins MD 03/30/2012 Office visit Kaylynn Walker COMPUTER INFORMATION SYSTEMS INSTRUCTOR 03/15/2012 Office visit Kaylynn Walker COMPUTER INFORMATION SYSTEMS INSTRUCTOR 03/15/2012 Office visit Odell Tierney MD 02/09/2012 Office visit Kaylynn Mendez COMPUTER INFORMATION SYSTEMS INSTRUCTOR 12/23/2011 Office visit Kaylynn Walker COMPUTER INFORMATION SYSTEMS INSTRUCTOR 11/02/2011 Office visit Kaylynn Walker COMPUTER INFORMATION SYSTEMS INSTRUCTOR 10/14/2011 Office visit Kaylynn Walker COMPUTER INFORMATION SYSTEMS INSTRUCTOR 09/27/2011 Office visit Kaylynn Walker COMPUTER INFORMATION SYSTEMS INSTRUCTOR 08/19/2011 [facility] Hoskins MD 08/18/2011 [facility] Hoskins MD 08/18/2011 Office visit Kaylynn Walker COMPUTER INFORMATION SYSTEMS INSTRUCTOR 08/02/2011 Office visit Kaylynn Walker COMPUTER INFORMATION SYSTEMS INSTRUCTOR 07/08/2011 Office visit Kaylynn Walker COMPUTER INFORMATION SYSTEMS INSTRUCTOR 07/05/2011 Office visit Odell Tierney MD 06/15/2011 Office visit Kaylynn Mendez COMPUTER INFORMATION SYSTEMS INSTRUCTOR 05/14/2011 Office visit Kaylynn Mendez COMPUTER INFORMATION SYSTEMS INSTRUCTOR 05/11/2011 Office visit Odell Tierney MD 04/28/2011 Office visit Kaylynn Mendez COMPUTER INFORMATION SYSTEMS INSTRUCTOR 03/02/2011 Office visit Chadd Norris DO 02/17/2011 [...]
--- OUTSIDE RECORDS SUMMARY | 2018-05-09 16:51 | XMS REPORT ---
Author Author Heena Dumont Organization [facility] Address [address] [place], [place] [id number] Care Team Providers Care Commissioner Of Officials Name Role Phone Heena Dumont PCP Allergies [...] X-RAY EXAM OF ABDOMEN 09/25/2014 12:00 AM CYTOPATH TBS C/V MANUAL 01/08/2015 12:00 AM Medications Active Name Start Date [...] ROUTE ONCE DAILY AT BEDTIME PRN Janumet oral tablet 50-1,000 mg 01/08/2014 take [...] by oral route every 12 hours baclofen oral tablet 10 mg 07/31/2014 1 [...] BY MOUTH TWICE DAILY Spiriva with HandiHaler inhalation capsule, w/inhalation device 18 mcg inhale 1 capsule (18 mcg) by inhalation route once daily baclofen oral tablet 10 mg 10/18/2014 02/15/2015 1/2 TABLET BY ORAL ROUTE 3 TIMES PER DAY PRN MUSCLE SPASM baclofen oral tablet 10 mg 12/03/2014 1 TABLET BY ORAL ROUTE 3 TIMES PER DAY PRN MUSCLE SPASM oxycodone oral tablet 5 mg 12/13/2014 01/12/2015 take 1 tablet by oral route every 12 hours for 30 days promethazine oral tablet 25 mg 12/16/2014 TAKE 1 TABLET BY MOUTH TWICE DAILY Ambien CR oral tablet,ext release multiphase 12.5 mg 12/28/2014 01/27/2015 take 1 tablet (12.5 mg) by oral route once daily at bedtime for 30 days [id number] otic drops,suspension 3.5-10,000-1 mg/mL-unit/mL-% 201401/08/2015 instill 4 drops into affected ear(s) by otic route 3 times per day for 7 days Invokana 100 mg oral tablet take [...] the upper arm, upper thigh or abdomen Name Start Date Expiration Date SIG Comments [...] route once daily at bedtime PRN lisinopril oral tablet 20 mg 01/02/2014 12/28/2014 take 1 tablet (20 mg) by oral route once daily for 90 days azithromycin oral tablet 250 mg 01/24/2014 01/29/2014 [...] 08/27/2014 use as directed for 99 days [place] oral tablet 5-325 mg 06/17/2014 06/27/2014 take [...] times a day for 7 days ondansetron oral tablet,disintegrating 4 mg 12/04/2014 01/03/2015 dissolve 1 tablet by oral [...] the evening changed to crestor Flonase Nasal [place], Suspension 50 mcg/actuation 06/20/2012 10/31/2012 inhale 1 [...] exceed 30 mL in 24 hours Mildred Rogers oral capsule 100 mg 04/30/2013 05/18/2013 take [...] ORAL ROUTE ONCE DAILY AT BEDTIME PRN Robertafekonstantin 12 Hour oral tablet extended release 120 [...] for 30 days States its not working Gabriel CR oral tablet,ext release multiphase 6.25 mg 02/25/2014 03/01/2014 take 1 tablet (6.25 mg) by oral route once daily at bedtime for 30 days per kaylynn increase willa lidocaine topical adhesive patch,medicated 5 %(700 mg/patch) [...] day in the morning and evening Flonase nasal spray,suspension 50 mcg/actuation 01/08/2015 inhale 1 spray ( 50 mcg) in each nostril by intranasal route once daily azelastine nasal spray,non-aerosol 0.15 % (205.5 mcg) 01/08/2015 spray 2 sprays (411 mcg) in each nostril by intranasal route 2 times per day WelChol oral powder in packet 3.75 gram [...] 2 tablets by oral route daily Cipro oral tablet 250 mg 12/13/2014 take 1 tablet by oral route BID x 2 weeks. Startes on 10-13-14 carbamazepine oral tablet extended release 12 hr 200 mg 10/18/2014 12/13/2014 take 1 tablet (200 mg) [...] HC BMI BSA BMI Percentile O2 Sat(%) 01/08/2015 3:14:00 PM 114 mmHg 77 mmHg [...] Reviewed 04/28/2011 12:00 AM Decadron 1 mg NDC#[id number] (Jr) Reviewed 04/28/2011 12:00 AM Depo-Medrol 80 mg NDC#[id number]-Vajgkcrs Reviewed 05/11/2011 12:00 AM N BLOCK INJ OCCIPITAL Reviewed 05/11/2011 12:00 AM Kenalog Mm-[id number] ANNA Reviewed 06/15/2011 12:00 AM COMPLETE CBC W/AUTO DIFF WBC Returned 06/15/2011 12:00 AM COMPREHEN METABOLIC PANEL Returned 07/08/2011 12:00 AM THER/PROPH/DIAG INJ SC/IM Reviewed 07/08/2011 12:00 AM Toradol,15mg NDC#[id number], Adilene Reviewed 07/08/2011 12:00 AM Phenergan 50 Mg Im Nd 8855-7182-19 [place]IE [place] Reviewed 08/02/2011 12:00 AM THER/PROPH/DIAG INJ SC/IM Reviewed 08/02/2011 12:00 AM Decadron 1 mg NDC#[id number] (Jr) Reviewed 08/02/2011 12:00 AM Depo-Medrol 80 mg NDC#[id number]-Gbnzneza Reviewed 09/27/2011 12:00 AM THER/PROPH/DIAG INJ SC/IM Reviewed 09/27/2011 12:00 AM Depo-Medrol 80 mg NDC#[id number]-Hndqeueg Reviewed 09/27/2011 12:00 AM Depo-Medrol 40 mg NDC#[id number] Ordered 10/14/2011 12:00 AM X-RAY EXAM OF ABDOMEN Returned 10/14/2011 12:00 AM URINALYSIS AUTO W/O SCOPE Reviewed 12/23/2011 12:00 AM THER/PROPH/DIAG INJ SC/IM Reviewed 12/23/2011 12:00 AM Decadron 1 mg NDC#[id number] (Jr) Reviewed 12/23/2011 12:00 AM Depo-Medrol 80 mg NDC#[id number]-Knqonajk Reviewed 02/09/2012 12:00 AM THER/PROPH/DIAG INJ SC/IM Reviewed 02/09/2012 12:00 AM Decadron 1 mg ND#[id number] (Jr) Reviewed 02/09/2012 12:00 AM Depo-Medrol 80 mg NDC#[id number]-Ugecjalg Reviewed 03/15/2012 12:00 AM N BLOCK INJ OCCIPITAL Reviewed 03/15/2012 12:00 AM Kenalog Gu-[address]-20 ANNA Reviewed 04/11/2012 12:00 AM COMPLETE CBC W/AUTO DIFF WBC Returned 04/11/2012 12:00 AM COMPREHEN METABOLIC PANEL Returned 04/11/2012 12:00 AM LIPID PANEL Returned 04/11/2012 12:00 AM ASSAY THYROID STIM HORMONE Returned 04/11/2012 12:00 AM DESTRUCT PREMALG LES 2-14 Ordered 06/20/2012 12:00 AM THER/PROPH/DIAG INJ SC/IM Reviewed 06/20/2012 12:00 AM Decadron, Per 1 Mg ND# [address]-65 Reviewed 06/20/2012 12:00 AM Depo-Medrol, Per 80 Mg ND#3130-9408-45 Reviewed 09/06/2012 12:00 AM N BLOCK INJ OCCIPITAL Reviewed 09/06/2012 12:00 AM Kenalog Hx-[address]-20 ANNA Reviewed 09/06/2012 12:00 AM X-RAY EXAM RIBS UNI 2 VIEWS Returned 09/26/2012 12:00 AM THER/PROPH/DIAG INJ SC/IM Reviewed 09/26/2012 12:00 AM Decadron, Per 1 Mg ND# [address]-03 Reviewed 09/26/2012 12:00 AM Depo-Medrol, Per 80 Mg ND#6556-7270-32 Reviewed 10/03/2012 12:00 AM URINALYSIS AUTO W/O SCOPE Reviewed 10/03/2012 12:00 AM THER/PROPH/DIAG INJ SC/IM Reviewed 10/03/2012 12:00 AM Toradol 60 Mg ND#3353-3193-62 Reviewed 10/03/2012 12:00 AM Phenergan, 25Mg ND#4153-9404-65 Reviewed 10/19/2012 12:00 AM N BLOCK INJ OCCIPITAL Reviewed 10/19/2012 12:00 AM Kenalog, Per 10 Mg [facility]#5369-7103-00 Reviewed 10/19/2012 12:00 AM Toradol 30 Mg [facility]#5135-8488-88 Reviewed 10/19/2012 12:00 AM THER/PROPH/DIAG INJ SC/IM Reviewed 10/31/2012 12:00 AM COMPLETE CBC W/AUTO DIFF WBC Returned 10/31/2012 12:00 AM COMPREHEN METABOLIC PANEL Returned 10/31/2012 12:00 AM LIPID PANEL Returned 10/31/2012 12:00 AM ELECTROCARDIOGRAM COMPLETE Ordered 11/03/2012 12:[address] PELVIS W/O & W/DYE Ordered 11/03/2012 12:[address] ABDOMEN W/O & W/DYE Ordered 11/03/2012 12:[address] THORAX W/O & W/DYE Returned 11/08/2012 12:00 AM N BLOCK INJ OCCIPITAL Reviewed 11/08/2012 12:00 AM Kenalog Vs-[id number] ANNA Reviewed 11/14/2012 12:00 AM LIVER IMAGING (3D) Ordered 11/27/2012 12:00 AM COMPLETE CBC W/AUTO DIFF WBC Returned 11/27/2012 12:00 AM COMPREHEN METABOLIC PANEL Returned 11/27/2012 12:00 AM URINALYSIS NONAUTO W/SCOPE Returned 11/27/2012 12:00 AM ASSAY OF LIPASE Ordered 11/27/2012 12:00 AM BLOOD SMEAR INTERPRETATION Ordered 11/27/2012 12:00 AM URINE CULTURE/COLONY COUNT Ordered 01/05/2013 12:00 AM IMMUNOTHERAPY INJECTIONS Reviewed 01/11/2013 12:00 AM Holter monitoring, 24-hour, continuous original ECG waveform, recording and storage without superimposition scanning utilizing a device capable of producing a full miniaturized printout; includes recording, microprocessor-based analysis with report, physician review and interpretation Returned 01/11/2013 12:00 AM IMMUNOTHERAPY INJECTIONS Ordered 01/18/2013 12:00 AM IMMUNOTHERAPY INJECTIONS Reviewed 01/22/2013 12:00 AM Pelvic & Breast Exam - Medicare Returned 01/22/2013 12:00 AM Pap Specimen Handling - Medicare Reviewed 01/22/2013 12:00 AM HIV-1ANTIBODY Returned 01/25/2013 12:00 AM THER/PROPH/DIAG INJ SC/IM Reviewed 01/25/2013 12:00 AM Decadron, Per 1 Mg [facility]# [address]-03 Reviewed 01/25/2013 12:00 AM Depo-Medrol, Per 80 Mg [facility]#0182-7911-95 Reviewed 01/26/2013 12:00 AM IMMUNOTHERAPY ONE INJECTION Ordered 01/26/2013 12:00 AM IMMUNOTHERAPY INJECTIONS Returned 02/01/2013 12:00 AM IMMUNOTHERAPY INJECTIONS Reviewed 02/08/2013 12:00 AM IMMUNOTHERAPY INJECTIONS Reviewed 02/16/2013 12:00 AM IMMUNOTHERAPY INJECTIONS Reviewed 02/19/2013 12:00 AM N BLOCK INJ OCCIPITAL Ordered 02/19/2013 12:00 AM Kenalog Ke-[address]-20 ANNA Ordered 03/14/2013 12:00 AM IMMUNOTHERAPY INJECTIONS Reviewed 03/20/2013 [...] Returned 04/25/2013 12:00 AM IMMUNOTHERAPY INJECTIONS Reviewed 03/05/2013 12:00 AM IMMUNOTHERAPY INJECTIONS Ordered 05/16/2013 12:00 AM THER/PROPH/DIAG INJ SC/IM Reviewed 05/16/2013 12:00 AM Decadron, Per 1 Mg [facility]# [address]-67 Reviewed 05/16/2013 12:00 AM Depo-Medrol, Per 80 Mg [facility]#0361-4392-12 Reviewed 05/31/2013 12:00 AM IMMUNOTHERAPY INJECTIONS Reviewed 06/08/2013 12:00 AM IMMUNOTHERAPY INJECTIONS Reviewed 06/14/2013 12:00 AM IMMUNOTHERAPY INJECTIONS Reviewed 06/28/2013 12:00 AM IMMUNOTHERAPY INJECTIONS Reviewed 07/12/2013 12:00 AM X-RAY EXAM RIBS UNI 2 VIEWS Returned 07/18/2013 12:00 AM Toradol 60 Mg [facility]#0850-3750-76 Reviewed 07/18/2013 12:00 AM THER/PROPH/DIAG INJ SC/IM Reviewed 08/23/2013 12:00 AM COMPLETE CBC W/AUTO DIFF WBC Reviewed 08/23/2013 12:00 AM COMPREHEN METABOLIC PANEL Reviewed 08/23/2013 12:00 AM LIPID PANEL Reviewed 08/31/2013 12:00 AM X-RAY EXAM OF LOWER LEG Returned 09/04/2013 12:00 AM IMMUNOTHERAPY INJECTIONS Reviewed 09/14/2013 12:00 AM THER/PROPH/DIAG INJ SC/IM Reviewed 09/14/2013 12:00 AM Decadron, Per 1 Mg [facility]# [address]-70 Reviewed 09/14/2013 12:00 AM Depo-Medrol, Per 80 Mg [facility]#1530-3653-23 Reviewed 09/20/2013 12:00 AM IMMUNOTHERAPY INJECTIONS Reviewed [...] INJ OCCIPITAL Reviewed 12/10/2009 12:00 AM Kenalog Wn-[address]-20 ANNA Reviewed 12/16/2009 12:00 AM HIV-1ANTIBODY Reviewed 12/16/2009 12:00 AM COMPLETE CBC W/AUTO DIFF WBC Reviewed 12/16/2009 12:00 AM METABOLIC PANEL TOTAL CA Reviewed 12/16/2009 12:00 AM Type and screen Reviewed 12/16/2009 12:00 AM PROTHROMBIN TIME Reviewed 12/16/2009 12:00 AM THROMBOPLASTIN TIME PARTIAL Reviewed 03/18/2010 12:00 AM DRAIN/INJ JOINT/BURSA W/O US Reviewed 03/18/2010 12:00 AM Kenalog Ng-[address]-20 ANNA Reviewed 11/21/2013 12:00 AM RADEX HAND MINIMUM 3 VIEWS Returned 06/03/2010 12:00 AM INJ TRIGGER POINT 1/2 MUSCL Reviewed 06/03/2010 12:00 AM Kenalog per 10Mg [facility]#[address]-24(Niall) Reviewed 12/05/2013 12:00 AM COMPLETE CBC W/AUTO [...] 12/05/2013 12:00 AM ASSAY OF PROGESTERONE Returned 12/12/2013 12:00 AM BLOOD SMEAR INTERPRETATION Ordered 06/18/2010 12:00 AM INJ TRIGGER POINT 1/2 [...] Reviewed 07/23/2010 12:00 AM Kenalog per 10Mg [facility]#[address]-89(Niall) Reviewed 2014 12:00 AM COMPLETE CBC W/AUTO DIFF WBC Returned 2014 12:00 AM COMPREHEN METABOLIC PANEL Returned 2014 12:00 AM ASSAY OF MAGNESIUM Returned 2014 12:00 AM ELECTROCARDIOGRAM COMPLETE Reviewed 03/29/2014 12:00 AM THER/PROPH/DIAG INJ SC/IM Ordered 03/29/2014 12:00 AM Rocephin 1 gram [facility]#3578-8666-73 Ordered 03/29/2014 12:00 AM THER/PROPH/DIAG INJ SC/IM Ordered 03/29/2014 12:00 AM Decadron, Per 1 Mg [facility]# [address]-72 Ordered 03/29/2014 12:00 AM THER/PROPH/DIAG INJ SC/IM Ordered 03/29/2014 12:00 AM Decadron, Per 1 Mg [facility]# [address]-60 Ordered 03/29/2014 12:00 AM Rocephin 1 gram [facility]#3595-0480-44 Ordered 04/24/2014 12:00 AM INFLUENZA VAC 4 VALENT [...] 06/12/2014 12:00 AM CHEST X-RAY 2VW FRONTAL&LATL Ordered 06/12/2014 12:00 AM CHEST X-RAY 2VW FRONTAL&LATL Returned 06/27/2014 12:00 AM CHEST X-RAY 2VW FRONTAL&LATL Returned 07/18/2014 12:[address] HEAD/BRAIN W/O DYE Returned 07/29/2014 12:00 AM MRI BRAIN STEM W/O & W/DYE Returned 07/29/2014 12:00 AM MRI JNT OF LWR EXTRE W/O DYE Returned 10/01/2010 12:00 AM N BLOCK INJ OCCIPITAL Reviewed 10/01/2010 12:00 AM Kenalog Za-[address]-20 ANNA Reviewed 07/25/2014 12:00 AM THER/PROPH/DIAG INJ [...] CULTURE AEROBIC BACT Reviewed 10/01/2014 12:00 AM COMPLETE CBC W/AUTO DIFF WBC Ordered 10/01/2014 12:00 AM COMPREHEN METABOLIC PANEL Returned 11/19/2010 12:[address] ABDOMEN W/O & W/DYE Reviewed 11/19/2010 12:[address] PELVIS W/O & W/DYE Reviewed 09/25/2014 12:00 AM X-RAY EXAM OF ABDOMEN Ordered 09/25/2014 12:00 AM CLOSTRIDIUM AG EIA Returned [...] 01/08/2015 12:00 AM CYTOPATH TBS C/V MANUAL Ordered 01/08/2015 12:00 AM SPECIMEN HANDLING OFFICE-LAB Ordered Results Summary Data and Description Results 11/11/2009 [...] 0.60 mg/dLCALCIUM 10.90 mg/ dLeGFR >60 mL/min/1.73 [id number] 45.0 U/L 08/31/2013 10:54 AM GLUCOSE 255.0 [...] 0.40 mg/ dLCALCIUM 10.60 mg/dLeGFR >60 mL/min/1.73 [id number] 369.0 mg/ dLCHOLESTEROL 153.0 mg/dLHDL 26.0 mg/dLLDL [...] BILI 0.30 mg/dLCALCIUM 10.0 mg/dLeGFR >60 mL/min/1.73 [id number] YELLOW APPEARANCE CLEAR SPEC GRAV 1.010 pH [...] 141 Influenza 04/24/2014 sanofi pasteur PMC Fluzone [id number] Intramuscular Left Upper Arm 02/27/2014 01/15/2014 141 [...] Lumbago Feb 6 2011 1:58PM Muscle Spasm Jun 6 2011 1:58PM Headache Feb 9 2011 [...] 2:37PM Gynecological Exam Jan 08 2015 3:25PM Payers Insurance Name Company Name Plan Name Plan Number Policy Number Policy Group Number Start Date Medicare Part A Medicare Part A [id number] N/A [facility] - RHC - Community Plan of [facility] RHC Comm [id number] N/A [employer] - [employer] - RHC [id number] [facility] Comm Plan of [id number] Wednesday, 2012 Medicare Part B Medicare Of [place] [id number] Monday, 2000 [place] [employer] [place] [employer] [id number] Tuesday, 2009 History of Encounters Visit Date Visit Type Provider 01/08/[address] Carol Fowler MD 01/01/2015 Office visit Brittni Yanez POWERED BRIDGE SPECIALIST 12/13/2014 Office visit Heena Dumont MD 11/27/2014 Office visit Kaylynn Mendez POWERED BRIDGE SPECIALIST 11/14/2014 Office visit Heena Dumont MD 10/18/2014 Office visit Heena Dumont MD 10/09/2014 Office visit Heena Dumont MD 09/25/2014 Office visit Heena Dumont MD 09/17/2014 Office visit Kaylynn Mendez POWERED BRIDGE SPECIALIST 09/04/2014 Office visit Heena Dumont MD 08/28/2014 Office visit Kaylynn Mendez POWERED BRIDGE SPECIALIST 08/23/2014 [facility] John Hoskins MD 08/01/2014 Office visit Kaylynn Mendez POWERED BRIDGE SPECIALIST 07/29/2014 Office visit Heena Dumont MD 07/25/2014 Nurse visit Heena Dumont MD 07/17/2014 Office visit Kaylynn Mendez POWERED BRIDGE SPECIALIST 07/11/2014 Office visit Heena Dumont MD 07/01/2014 Office visit Heena Dumont MD 06/25/2014 Office visit Kaylynn Mendez POWERED BRIDGE SPECIALIST 06/12/2014 Office visit Kaylynn Mendez POWERED BRIDGE SPECIALIST 06/06/2014 Office visit Kaylynn Mendez POWERED BRIDGE SPECIALIST 05/27/2014 Office visit Heena Dumont MD 04/20/2014 Office visit Yesica Falcon POWERED BRIDGE SPECIALIST 03/29/2014 Office visit Na Jones POWERED BRIDGE SPECIALIST 03/15/2014 Office visit Heena Dumont MD 2014 Office visit Heena Dumont MD 2014 [facility] John Hoskins MD 02/27/2014 Nurse visit Heena Dumont MD 02/13/2014 Office visit Lena El POWERED BRIDGE SPECIALIST 02/07/2014 Office visit Heena uDmont MD 02/03/2014 Office visit Na Jones POWERED BRIDGE SPECIALIST 01/30/2014 Office visit Kaylynn Mendez POWERED BRIDGE SPECIALIST 01/24/2014 Office visit Sundeep Russell POWERED BRIDGE SPECIALIST 01/16/2014 Office visit Kaylynn Walker POWERED BRIDGE SPECIALIST 01/10/2014 Nurse visit Kaylynn Walker POWERED BRIDGE SPECIALIST 01/08/2014 Office visit Kaylynn Walker POWERED BRIDGE SPECIALIST 12/05/2013 Office visit Kaylynn Walker POWERED BRIDGE SPECIALIST 11/21/2013 Office visit Kaylynn Walker POWERED BRIDGE SPECIALIST 10/23/2013 Office visit Brittni Yanez POWERED BRIDGE SPECIALIST 10/17/2013 Nurse visit Heena Dumont MD 10/12/2013 Office visit Kaylynn Mendez POWERED BRIDGE SPECIALIST 10/02/2013 Office visit Heena Dumont MD 09/20/2013 Voided Heena Dumont MD 09/20/2013 Nurse visit Kaylynn Walker POWERED BRIDGE SPECIALIST 09/14/2013 Office visit Kaylynn Walker POWERED BRIDGE SPECIALIST 09/05/2013 Office visit Sundeep Russell POWERED BRIDGE SPECIALIST 09/04/2013 Nurse visit Kaylynn Mendez POWERED BRIDGE SPECIALIST 08/31/2013 Office visit Kaylynn Mendez POWERED BRIDGE SPECIALIST 08/23/2013 Office visit Heena Dumont MD 08/10/2013 Office visit Kaylynn Mendez POWERED BRIDGE SPECIALIST 07/25/2013 Office visit Kaylynn Walker POWERED BRIDGE SPECIALIST 07/18/2013 Office visit Kaylynn Walker POWERED BRIDGE SPECIALIST 07/12/2013 Office visit Kaylynn Mendez POWERED BRIDGE SPECIALIST 06/28/2013 Nurse visit Kaylynn Walker POWERED BRIDGE SPECIALIST 06/14/2013 Nurse visit Kaylynn Walker POWERED BRIDGE SPECIALIST 06/08/2013 Nurse visit Kaylynn Walker POWERED BRIDGE SPECIALIST 05/31/2013 Nurse visit Chadd Norris DO 05/18/2013 Office visit Terese Davidson MD 05/16/2013 Office visit Kaylynn Mendez POWERED BRIDGE SPECIALIST 05/09/2013 Office visit Kaylynn Mendez POWERED BRIDGE SPECIALIST 04/29/2013 [facility] John Hoskins MD 04/25/2013 Nurse visit Kaylynn Walker POWERED BRIDGE SPECIALIST 04/17/2013 Office visit Kaylynn Mendez POWERED BRIDGE SPECIALIST 04/03/2013 Office visit Terese Davidson MD 04/03/2013 Nurse visit Kaylynn Mendez POWERED BRIDGE SPECIALIST 03/28/2013 Office visit Sundeep Russell POWERED BRIDGE SPECIALIST 03/21/2013 Office visit Kaylynn Mendez POWERED BRIDGE SPECIALIST 03/20/2013 Office visit Terese Davidson MD 03/14/2013 Nurse visit Kaylynn Mendez POWERED BRIDGE SPECIALIST 03/05/2013 Nurse visit Kaylynn Mendez POWERED BRIDGE SPECIALIST 02/19/2013 Office visit Terese Davidson MD 02/16/2013 Nurse visit Kaylynn Mendez POWERED BRIDGE SPECIALIST 02/09/2013 Office visit Sundeep Russell POWERED BRIDGE SPECIALIST 02/08/2013 Nurse visit Kaylynn Mendez POWERED BRIDGE SPECIALIST 02/01/2013 Nurse visit Kaylynn Mendez POWERED BRIDGE SPECIALIST 01/26/2013 Nurse visit Sabrina Andrea APPEALS OFFICER 01/25/2013 Office visit Kaylynn Mendez POWERED BRIDGE SPECIALIST 01/22/2013 Office visit Yoan Castaneda MD 01/18/2013 Nurse visit Kaylynn Mendez POWERED BRIDGE SPECIALIST 01/11/2013 Nurse visit Kaylynn Walker POWERED BRIDGE SPECIALIST 01/05/2013 Nurse visit Kaylynn Walker POWERED BRIDGE SPECIALIST 12/29/2012 Office visit Kaylynn Walker POWERED BRIDGE SPECIALIST 11/27/2012 Office visit Kaylynn Mednez POWERED BRIDGE SPECIALIST 11/08/2012 Voided Odell Tierney MD 11/08/2012 Office visit Odell Tierney MD 11/07/2012 Office visit Kaylynn Mendez POWERED BRIDGE SPECIALIST 10/31/2012 Office visit Kaylynn Mendez POWERED BRIDGE SPECIALIST 10/31/2012 [facility] John Hoskins MD 10/19/2012 Office visit Genoveva Ayala POWERED BRIDGE SPECIALIST 10/10/2012 Office visit Kaylynn Mendez POWERED BRIDGE SPECIALIST 10/03/2012 Office visit Kaylynn Mendez POWERED BRIDGE SPECIALIST 09/26/2012 Office visit Kaylynn Mendez POWERED BRIDGE SPECIALIST 09/06/2012 Office visit Odell Tierney MD 09/06/2012 Office visit Kaylynn Mendez POWERED BRIDGE SPECIALIST 08/31/2012 Voided Kaylynn Mendez POWERED BRIDGE SPECIALIST 07/28/2012 Office visit Kaylynn Mendez POWERED BRIDGE SPECIALIST 07/27/2012 Office visit David Joyner DO 07/20/2012 [facility] David Botom DO 07/13/2012 [facility] DO 07/11/2012 Office visit Kaylynn Mendez POWERED BRIDGE SPECIALIST 06/27/2012 [facility] Odell Tierney MD 06/21/2012 Office visit Odell Tierney MD 06/21/2012 Office visit David Joyner DO 06/20/2012 Office visit Brittni Yanez POWERED BRIDGE SPECIALIST 06/06/2012 Office visit Odell Tierney MD 05/03/2012 Office visit Kaylynn Mendez POWERED BRIDGE SPECIALIST 04/28/2012 Office visit Brittni Yanez POWERED BRIDGE SPECIALIST 04/11/2012 Office visit Kaylynn Mendez POWERED BRIDGE SPECIALIST 04/06/2012 [facility] John Hoskins MD 03/30/2012 Office visit Kaylynn Mendez POWERED BRIDGE SPECIALIST 03/15/2012 Office visit Odell Tierney MD 03/15/2012 Office visit Kaylynn Mendez POWERED BRIDGE SPECIALIST 02/09/2012 Office visit Kaylynn Mendez POWERED BRIDGE SPECIALIST 12/23/2011 Office visit Kaylynn Mendez POWERED BRIDGE SPECIALIST 11/02/2011 Office visit Kaylynn Mendez POWERED BRIDGE SPECIALIST 10/14/2011 Office visit Kaylynn Mendez POWERED BRIDGE SPECIALIST 09/27/2011 Office visit Kaylynn Mendez POWERED BRIDGE SPECIALIST 08/19/2011 [facility] John Hoskins MD 08/18/2011 Office visit Kaylynn Mendez POWERED BRIDGE SPECIALIST 08/18/2011 [facility] John Hoskins MD 08/02/2011 Office visit Kaylynn Mendez POWERED BRIDGE SPECIALIST 07/08/2011 Office visit Kaylynn Mendez POWERED BRIDGE SPECIALIST 07/05/2011 Office visit Odell Tierney MD 06/15/2011 Office visit Kaylynn Mendez POWERED BRIDGE SPECIALIST 05/14/2011 Office visit Kaylynn Mendez POWERED BRIDGE SPECIALIST 05/11/2011 Office visit Odell Tierney MD 04/28/2011 Office visit Kaylynn Mendez POWERED BRIDGE SPECIALIST 03/02/2011 Office visit Chadd Norris DO [...]
--- OUTSIDE RECORDS SUMMARY | 2018-05-09 16:56 | XMS REPORT ---
Author Author Kaylynn Mendez Organization [facility] Address [address] [place], [place] [id number] Care Team Providers Care Design Engineering Manager Name Role Phone Kaylynn Mendez PCP Unavailable Heena Dumont PreferredProvider Allergies and Adverse Reactions Name Reaction Notes Aspirin Methadone Ultram Vicodin Plan of Treatment Planned Activity Comments Planned Date Planned Time Plan/Goal VIDEO SWALLOW 05/08/2015 12:00 AM CMP 09/16/2015 12:00 AM EKG (12-lead electrocardiogram) 11/13/2015 12:00 AM HEMOGLOBIN 12/16/2015 12:[address] HEAD W/O CONTRAST 09/09/2016 12:00 AM EKG (12-lead electrocardiogram) 10/31/2012 12:00 [...] 01/19/2016 APPLY BY EXTERNAL ROUTE ONCE DAILY [employer] IQ Meter miscellaneous kit 01/21/2016 test 2 x daily, Dx: E11.9, 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 metformin oral Savella 50 mg oral tablet 06/04/2016 12/01/2016 [...] A DAY (AT BEDTIME) FOR 30 DAYS oxycodone 10 mg oral tablet 08/26/2016 09/25/2016 take 1 tablet (10 mg) by oral route every 6 hours for 30 days MS Contin 30 mg oral tablet extended release 09/01/2016 10/01/2016 take 1 tablet (30 mg) by oral route every 12 hours [...] 08/27/2014 use as directed for 99 days [place] 5-325 mg oral tablet 06/17/2014 06/27/2014 take [...] route BID x 7 days. Finished on 5-16-15 Flagyl 500 mg oral tablet take 1 [...] a day as needed for 30 days jptbiisr-nrvwgdqbm-EL 3.5-10,000-1 mg/mL-unit/mL-% otic drops,suspension 201401/08/2015 instill 4 [...] Ok for similiar substitution or individual components. mzkxttod-rrwshrixi-AQ 3.5-10,000-1 mg/mL-unit/mL-% otic drops,suspension 201607/23/2016 instill 4 [...] route [address] Jin Bactrineelima DS Oral 160-800 mg Oral Tablet 11/06/2009 [...] days States its not working Gabriel CR 6.25 mg oral tablet,ext release multiphase [...] DAILY Pt. reports this is not working. cyclobenzaprine 10 mg oral tablet 04/26/2016 08/26/2016 take 1 tablet by oral route once a day (at bedtime) Zyrtec-D 5-120 mg oral tablet extended release 12 hr 06/18/2016 08/26/2016 take 1 tablet by oral route every 12 hours duplicate hydrocodone-acetaminophen 10-325 mg oral tablet 08/26/2016 08/26/2016 take 1 tablet by oral route every 6 hours for 30 days May fill 08/02/16 Problem List Description Status Onset Anemia Active [...] HC BMI BSA BMI Percentile O2 Sat(%) 09/09/2016 8:50:00 AM 130 mmHg 74 mmHg [...] Reviewed 04/28/2011 12:00 AM Decadron 1 mg NDC#[id number] (Jr) Reviewed 04/28/2011 12:00 AM Depo-Medrol 80 mg NDC#[id number]-Yadithdb Reviewed 09/02/2015 12:00 AM Toradol 60 Mg ND#9002-7392-03 Reviewed 09/02/2015 12:00 AM Phenergan, Up to 50 Mg RHC Medicaid Reviewed 09/16/2015 12:00 AM Toradol 60 Mg [facility]#5658-4490-98 Reviewed 09/16/2015 12:00 AM Phenergan Up to 50 mg RHC Medicare Reviewed 05/11/2011 12:00 AM N BLOCK INJ OCCIPITAL Reviewed 05/11/2011 12:00 AM Kenalog Na-[address]-20 ANNA Reviewed 11/13/2015 12:00 AM ASSAY OF [...] INJ SC/IM Reviewed 07/08/2011 12:00 AM Toradol,15mg [facility]#[id number], [place] Reviewed 07/08/2011 12:00 AM Phenergan 50 Mg Im [facility] [phone] [facility] Reviewed 01/21/2016 12:00 AM ECG MONIT/REPRT UP TO 48 HRS Returned 08/02/2011 12:00 AM THER/PROPH/DIAG INJ SC/IM Reviewed 08/02/2011 12:00 AM Decadron 1 mg [facility]#[id number] (Jr) Reviewed 08/02/2011 12:00 AM Depo-Medrol 80 mg [facility]#[id number]-Dhrqixnk Reviewed 03/05/2016 12:00 AM COMPLETE CBC W/AUTO DIFF WBC Returned 03/05/2016 12:00 AM STREP A ASSAY W/OPTIC Returned 03/05/2016 12:00 AM C-REACTIVE PROTEIN Returned 03/18/2016 12:00 AM [facility] - flu vaccine administration Reviewed [...] Reviewed 09/27/2011 12:00 AM Depo-Medrol 80 mg NDC#[id number]-Yfyfahwf Reviewed 07/06/2016 12:00 AM CHEST X-RAY 4/> VIEWS Returned 10/14/2011 12:00 AM X-RAY EXAM OF ABDOMEN Reviewed 10/14/2011 12:00 AM URINALYSIS AUTO W/O SCOPE Reviewed 08/09/2016 12:00 AM INJ FORAMEN EPIDURAL L/S Reviewed 08/09/2016 12:00 AM INJECT SPINE LUMBAR/SACRAL Reviewed 08/09/2016 12:00 AM INJECT SPINE CERV/THORACIC Reviewed 12/23/2011 12:00 AM THER/PROPH/DIAG INJ SC/IM Reviewed 12/23/2011 12:00 AM Decadron 1 mg NDC#[id number] (Jr) Reviewed 12/23/2011 12:00 AM Depo-Medrol 80 mg NDC#[id number]-Kytscypm Reviewed 02/09/2012 12:00 AM THER/PROPH/DIAG INJ SC/IM Reviewed 02/09/2012 12:00 AM Decadron 1 mg NDC#87044020791 (Jr) Reviewed 02/09/2012 12:00 AM Depo-Medrol 80 mg NDC#[id number]-Jsvxogcy Reviewed 03/15/2012 12:00 AM N BLOCK INJ OCCIPITAL Reviewed 03/15/2012 12:00 AM Kenalog Ig-[address]-20 ANNA Reviewed 04/11/2012 12:00 AM COMPLETE CBC W/AUTO DIFF WBC Reviewed 04/11/2012 12:00 AM COMPREHEN METABOLIC PANEL Reviewed 04/11/2012 12:00 AM LIPID PANEL Reviewed 04/11/2012 12:00 AM ASSAY THYROID STIM HORMONE Reviewed 06/20/2012 12:00 AM THER/PROPH/DIAG INJ SC/IM Reviewed 06/20/2012 12:00 AM Decadron, Per 1 Mg NDC# [address]-31 Reviewed 06/20/2012 12:00 AM Depo-Medrol, Per 80 Mg NDC#1099-2955-47 Reviewed 09/06/2012 12:00 AM N BLOCK INJ OCCIPITAL Reviewed 09/06/2012 12:00 AM Kenalog Vt-[address]-20 ANNA Reviewed 09/06/2012 12:00 AM X-RAY EXAM RIBS UNI 2 VIEWS Reviewed 09/26/2012 12:00 AM THER/PROPH/DIAG INJ SC/IM Reviewed 09/26/2012 12:00 AM Decadron, Per 1 Mg NDC# [address]-53 Reviewed 09/26/2012 12:00 AM Depo-Medrol, Per 80 Mg NDC#1985-2479-27 Reviewed 10/03/2012 12:00 AM URINALYSIS AUTO W/O SCOPE Reviewed 10/03/2012 12:00 AM THER/PROPH/DIAG INJ SC/IM Reviewed 10/03/2012 12:00 AM Toradol 60 Mg NDC#4499-0521-97 Reviewed 10/03/2012 12:00 AM Phenergan, 25Mg NDC#4401-0085-65 Reviewed 10/19/2012 12:00 AM N BLOCK INJ OCCIPITAL Reviewed 10/19/2012 12:00 AM Kenalog, Per 10 Mg ND#6210-3097-04 Reviewed 10/19/2012 12:00 AM Toradol 30 Mg NDC#1230-5996-70 Reviewed 10/19/2012 12:00 AM THER/PROPH/DIAG INJ SC/IM Reviewed 10/31/2012 12:00 AM COMPLETE CBC W/AUTO DIFF WBC Reviewed 10/31/2012 12:00 AM COMPREHEN METABOLIC PANEL Reviewed 10/31/2012 12:00 AM LIPID PANEL Reviewed 11/03/2012 12:[address] THORAX W/O & W/DYE Reviewed 11/08/2012 12:00 AM N BLOCK INJ OCCIPITAL Reviewed 11/08/2012 12:00 AM Kenalog Qn-[address]-20 ANNA Reviewed 11/27/2012 12:00 AM COMPLETE CBC [...] 01/25/2013 12:00 AM Decadron, Per 1 Mg [facility]# [address]-09 Reviewed 01/25/2013 12:00 AM Depo-Medrol, Per 80 Mg [facility]#6368-8977-01 Reviewed 01/26/2013 12:00 AM IMMUNOTHERAPY INJECTIONS Reviewed [...] 05/16/2013 12:00 AM Decadron, Per 1 Mg [facility]# [address]-61 Reviewed 05/16/2013 12:00 AM Depo-Medrol, Per 80 Mg [facility]#4239-9039-04 Reviewed 05/31/2013 12:00 AM IMMUNOTHERAPY INJECTIONS Reviewed 06/08/2013 12:00 AM IMMUNOTHERAPY INJECTIONS Reviewed 06/14/2013 12:00 AM IMMUNOTHERAPY INJECTIONS Reviewed 06/28/2013 12:00 AM IMMUNOTHERAPY INJECTIONS Reviewed 07/12/2013 12:00 AM X-RAY EXAM RIBS UNI 2 VIEWS Reviewed 07/18/2013 12:00 AM Toradol 60 Mg [facility]#9854-1304-83 Reviewed 07/18/2013 12:00 AM THER/PROPH/DIAG INJ SC/IM Reviewed 08/23/2013 12:00 AM COMPLETE CBC W/AUTO DIFF WBC Reviewed 08/23/2013 12:00 AM COMPREHEN METABOLIC PANEL Reviewed 08/23/2013 12:00 AM LIPID PANEL Reviewed 08/31/2013 12:00 AM X-RAY EXAM OF LOWER LEG Reviewed 09/04/2013 12:00 AM IMMUNOTHERAPY INJECTIONS Reviewed 09/14/2013 12:00 AM THER/PROPH/DIAG INJ SC/IM Reviewed 09/14/2013 12:00 AM Decadron, Per 1 Mg [facility]# [address]-55 Reviewed 09/14/2013 12:00 AM Depo-Medrol, Per 80 Mg [facility]#6162-0657-45 Reviewed 09/20/2013 12:00 AM IMMUNOTHERAPY INJECTIONS Reviewed [...] INJ OCCIPITAL Reviewed 12/10/2009 12:00 AM Kenalog Pg-[address]-20 ANNA Reviewed 12/16/2009 12:00 AM HIV-1ANTIBODY Reviewed 12/16/2009 12:00 AM COMPLETE CBC W/AUTO DIFF WBC Reviewed 12/16/2009 12:00 AM METABOLIC PANEL TOTAL CA Reviewed 12/16/2009 12:00 AM Type and screen Reviewed 12/16/2009 12:00 AM PROTHROMBIN TIME Reviewed 12/16/2009 12:00 AM THROMBOPLASTIN TIME PARTIAL Reviewed 03/18/2010 12:00 AM DRAIN/INJ JOINT/BURSA W/O US Reviewed 03/18/2010 12:00 AM Kenalog Nb-[address]-20 ANNA Reviewed 11/21/2013 12:00 AM RADEX HAND MINIMUM 3 VIEWS Reviewed 06/03/2010 12:00 AM INJ TRIGGER POINT 1/2 MUSCL Reviewed 06/03/2010 12:00 AM Kenalog per 10Mg Im-Nd#[address]-39(Niall) Reviewed 12/05/2013 12:00 AM COMPLETE CBC W/AUTO [...] Reviewed 07/23/2010 12:00 AM Kenalog per 10Mg Im-Nd#[address]-29(Niall) Reviewed 2014 12:00 AM COMPLETE CBC W/AUTO [...] INJ OCCIPITAL Reviewed 10/01/2010 12:00 AM Kenalog Ux-[address]-20 ANNA Reviewed 07/25/2014 12:00 AM THER/PROPH/DIAG INJ [...] Quant,IgM <0.80 RMSF , IgG, EIA Negative [facility] Spotted Fever,IgM 0.51 E. chaffeensis (HME) [...] 141 Influenza 04/24/2014 sanofi pasteur PMC Fluzone [id number] Intramuscular Left Upper Arm 02/27/2014 01/15/2014 141 Influenza 02/13/2015 sanofi pasteur PMC Fluzone [id number] Intramuscular Left Deltoid 02/13/2015 01/03/2015 140 Tdap 06/06/2015 [employer] SKB BOOSTRIX [id number] Intramuscular Left Deltoid 06/06/2015 07/23/2014 115 Influenza 03/18/2016 sanofi pasteur PMC Fluzone [id number] Intramuscular Left Deltoid 03/17/2016 01/03/2015 141 History [...] Abdominal Pain Jun 15 2011 1:50PM Lumbago Fe 6 2011 1:58PM Muscle Spasm Jul 05 2011 1:58PM Headache Jul 08 2011 1:38PM Heart Sound Abnormality Feb 2011 1:38PM Upper Respiratory Infections Aug 02 [...] liver enzymes b 2014 3:51PM Sternal pain b 2014 4:22PM [...] 11:30AM Headache Jul 23 2014 11:30AM Osteoporosis b 2014 2:09PM Post [...] spinal stenosis Jul 09 2016 3:50PM Lumbago b 2016 3:25PM Stenosis, [...] 2016 8:52AM Nystagmus Sep 09 2016 8:52AM Payers Insurance Name Company Name Plan Name Plan Number Policy Number Policy Group Number Start Date Medicare [facility] Medicare [facility] [id number] N/A [facility] Comm [id number] N/A Medicare Part A Medicare - Lab/[facility] [id number] N/A Medicare Part B Medicare Of [place] [id number] Monday, February 28, 2000 [place] [employer] [place] [employer] [place] [id number] Tuesday, November 10, 2009 Medicare Part A Medicare Part A [id number] N/A [place] 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 Prog 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g - [facility] [id number] May [facility] [place] [facility] Plan of [id number] Wednesday, May 30, 2012 History of Encounters Visit Date Visit Type Provider 09/09/2016 Office visit Kaylynn Mendez SENIOR TRAINING SPECIALIST 08/27/2016 Office visit Riccardo Cardoza MD 08/26/2016 Office visit Heena Dumont MD 07/09/2016 Office visit Riccardo Cardoza MD 07/06/2016 Office visit Heena Dumont MD 06/18/2016 Office visit Kaylynn Mendez SENIOR TRAINING SPECIALIST 06/07/2016 Office visit Sundeep Russell SENIOR TRAINING SPECIALIST 06/04/2016 Office visit Heena Dumont MD 05/13/2016 Office visit Heena Dumont MD 05/03/2016 Office visit Heena Dumont MD 04/26/2016 Office visit Kaylynn Mendez SENIOR TRAINING SPECIALIST 04/14/2016 Office visit Heena Dumont MD 04/13/2016 Office visit Kaylynn Mendez SENIOR TRAINING SPECIALIST 04/02/2016 Office visit Lena El SENIOR TRAINING SPECIALIST 04/02/2016 Office visit Heena Dumont MD 03/26/2016 Office visit Yesica Falcon SENIOR TRAINING SPECIALIST 03/17/2016 Office visit Heena Dumont MD 03/05/2016 Office visit Kaylynn Mendez SENIOR TRAINING SPECIALIST 02/16/2016 Office visit Heena Dumont MD 02/14/2016 Office visit Na Jones SENIOR TRAINING SPECIALIST 01/16/2016 Office visit Heena Dumont MD 12/16/2015 Office visit Heena Dumont MD 11/24/2015 Office visit Kaylynn Mendez SENIOR TRAINING SPECIALIST 11/18/2015 Office visit Heena Dumont MD 11/03/2015 Office visit Sundeep Russell SENIOR TRAINING SPECIALIST 10/20/2015 Office visit Kaylynn Mendez SENIOR TRAINING SPECIALIST 09/23/2015 Office visit Kaylynn Mendez SENIOR TRAINING SPECIALIST 09/16/[address] Pepe Figueroa MD 09/02/2015 Office visit Kaylynn Mendez SENIOR TRAINING SPECIALIST 09/01/2015 Office visit Kaylynn Mendez SENIOR TRAINING SPECIALIST 07/30/2015 Office visit Heena Dumont MD 07/15/2015 Office visit Kaylynn Mendez SENIOR TRAINING SPECIALIST 07/04/2015 Office visit Heena Dumont MD 06/06/2015 Office visit Heena Dumont MD 06/06/2015 Office visit Kaylynn Mendez SENIOR TRAINING SPECIALIST 06/02/2015 Office visit Kaylynn Mendez SENIOR TRAINING SPECIALIST 05/26/2015 Office visit Kaylynn Mendez SENIOR TRAINING SPECIALIST 05/20/2015 Office visit Kaylynn Mendez SENIOR TRAINING SPECIALIST 05/08/2015 Office visit Heena Dumont MD 05/06/2015 Office visit Kaylynn Mendez SENIOR TRAINING SPECIALIST 04/29/2015 Office visit Kaylynn Mendez SENIOR TRAINING SPECIALIST 03/27/2015 Voided Brittni Yanez SENIOR TRAINING SPECIALIST 03/21/2015 Office visit Heena Dumont MD 03/12/2015 Office visit Kaylynn Mendez SENIOR TRAINING SPECIALIST 02/26/2015 Office visit Brittni Yanez SENIOR TRAINING SPECIALIST 02/13/2015 Office visit Heena Dumont MD 01/15/2015 Office visit Brittni Yanez SENIOR TRAINING SPECIALIST 01/13/2015 Office visit Heena Dumont MD 01/08/[address] Carol Fowler MD 01/01/2015 Office visit Brittni Yanez SENIOR TRAINING SPECIALIST 12/13/2014 Office visit Heena Dumont MD 11/27/2014 Office visit Kaylynn Mendez SENIOR TRAINING SPECIALIST 11/14/2014 Office visit Heena Dumont MD 10/18/2014 Office visit Heena Dumont MD 10/17/2014 [facility] John Hoskins MD 10/09/2014 Office visit Heena Dumont MD 09/25/2014 Office visit Heena Dumont MD 09/17/2014 Office visit Kaylynn Mendez SENIOR TRAINING SPECIALIST 09/04/2014 Office visit Heena Dumont MD 08/28/2014 Office visit Kaylynn Mendez SENIOR TRAINING SPECIALIST 08/23/2014 [facility] John Hoskins MD 08/01/2014 Office visit Kaylynn Mendez SENIOR TRAINING SPECIALIST 07/29/2014 Office visit Heena Dumont MD 07/25/2014 Nurse visit Heena Dumont MD 07/17/2014 Office visit Kaylynn Mendez SENIOR TRAINING SPECIALIST 07/11/2014 Office visit Heena Dumont MD 07/01/2014 Office visit Heena Dumont MD 06/25/2014 Office visit Kaylynn Mendez SENIOR TRAINING SPECIALIST 06/12/2014 Office visit Kaylynn Mendez SENIOR TRAINING SPECIALIST 06/06/2014 Office visit Kaylynn Mendez SENIOR TRAINING SPECIALIST 05/27/2014 Office visit Heena Dumont MD 04/20/2014 Office visit Yesica Falcon SENIOR TRAINING SPECIALIST 03/29/2014 Office visit Na Jones SENIOR TRAINING SPECIALIST 03/15/2014 Office visit Heena Dumont MD 2014 Office visit Heena Dumont MD 2014 [facility] John Hoskins MD 02/27/2014 Nurse visit Heena Dumont MD 02/13/2014 Office visit Lena El SENIOR TRAINING SPECIALIST 02/07/2014 Office visit Heena Dumont MD 02/03/2014 Office visit Na Jones SENIOR TRAINING SPECIALIST 01/30/2014 Office visit Kaylynn Walker SENIOR TRAINING SPECIALIST 01/24/2014 Office visit Sundeep Russell SENIOR TRAINING SPECIALIST 01/16/2014 Office visit Kaylynn Walker SENIOR TRAINING SPECIALIST 01/10/2014 Nurse visit Kaylynn Walker SENIOR TRAINING SPECIALIST 01/08/2014 Office visit Kaylynn Walker SENIOR TRAINING SPECIALIST 12/05/2013 Office visit Kaylynn Walker SENIOR TRAINING SPECIALIST 11/21/2013 Office visit Kaylynn Walker SENIOR TRAINING SPECIALIST 10/23/2013 Office visit Brittni Yanez SENIOR TRAINING SPECIALIST 10/17/2013 Nurse visit Heena Dumont MD 10/12/2013 Office visit Kaylynn Andrea SENIOR TRAINING SPECIALIST 10/02/2013 Office visit Heena Dumont MD 09/20/2013 Nurse visit Kaylynn Mendez SENIOR TRAINING SPECIALIST 09/20/2013 Voided Heena Dumont MD 09/14/2013 Office visit Kaylynn Walker SENIOR TRAINING SPECIALIST 09/05/2013 Office visit Sundeep Russell SENIOR TRAINING SPECIALIST 09/04/2013 Nurse visit Kaylynn Walker SENIOR TRAINING SPECIALIST 08/31/2013 Office visit Kaylynn Walker SENIOR TRAINING SPECIALIST 08/23/2013 Office visit Heena Dumont MD 08/10/2013 Office visit Kaylynn Walker SENIOR TRAINING SPECIALIST 07/25/2013 Office visit Kaylynn Walker SENIOR TRAINING SPECIALIST 07/18/2013 Office visit Kaylynn Walker SENIOR TRAINING SPECIALIST 07/12/2013 Office visit Kaylynn Walker SENIOR TRAINING SPECIALIST 06/28/2013 Nurse visit Kaylynn Walker SENIOR TRAINING SPECIALIST 06/14/2013 Nurse visit Kaylynn Walker SENIOR TRAINING SPECIALIST 06/08/2013 Nurse visit Kaylynn Walker SENIOR TRAINING SPECIALIST 05/31/2013 Nurse visit Chadd Norris DO 05/18/2013 Office visit Terese Davidson MD 05/16/2013 Office visit Kaylynn Mendez SENIOR TRAINING SPECIALIST 05/09/2013 Office visit Kaylynn Mendez SENIOR TRAINING SPECIALIST 04/29/2013 [facility] John Hoskins MD 04/25/2013 Nurse visit Kaylynn Walker SENIOR TRAINING SPECIALIST 04/17/2013 Office visit Kaylynn Walker SENIOR TRAINING SPECIALIST 04/03/2013 Nurse visit Kaylynn Mendez SENIOR TRAINING SPECIALIST 04/03/2013 Office visit Terese Davidson MD 03/28/2013 Office visit Sundeep Russell SENIOR TRAINING SPECIALIST 03/21/2013 Office visit Kaylynn Mendez SENIOR TRAINING SPECIALIST 03/20/2013 Office visit Terese Davidson MD 03/14/2013 Nurse visit Kaylynn Mendez SENIOR TRAINING SPECIALIST 03/05/2013 Nurse visit Kaylynn Mendez SENIOR TRAINING SPECIALIST 02/19/2013 Office visit Terese Davidson MD 02/16/2013 Nurse visit Kaylynn Mendez SENIOR TRAINING SPECIALIST 02/09/2013 Office visit Sundeep Russell SENIOR TRAINING SPECIALIST 02/08/2013 Nurse visit Kaylynn Mendez SENIOR TRAINING SPECIALIST 02/01/2013 Nurse visit Kaylynn Walker SENIOR TRAINING SPECIALIST 01/26/2013 Nurse visit Sabrina Andrea OUTPATIENT RECEPTIONIST 01/25/2013 Office visit Kaylynn Mendez SENIOR TRAINING SPECIALIST 01/22/2013 Office visit Yoan Castaneda MD 01/18/2013 Nurse visit Kaylynn Walker SENIOR TRAINING SPECIALIST 01/11/2013 Nurse visit Kaylynn Walker SENIOR TRAINING SPECIALIST 01/05/2013 Nurse visit Kaylynn Walker SENIOR TRAINING SPECIALIST 12/29/2012 Office visit Kaylynn Walker SENIOR TRAINING SPECIALIST 11/27/2012 Office visit Kaylynn Walker SENIOR TRAINING SPECIALIST 11/08/2012 Office visit Odell Tierney MD 11/08/2012 Voided Odell Tierney MD 11/07/2012 Office visit Kaylynn Mendez SENIOR TRAINING SPECIALIST 10/31/2012 [facility] John Hoskins MD 10/31/2012 Office visit Kaylynn Mendez SENIOR TRAINING SPECIALIST 10/19/2012 Office visit Genoveva Ayala SENIOR TRAINING SPECIALIST 10/10/2012 Office visit Kaylynn Mendez SENIOR TRAINING SPECIALIST 10/03/2012 Office visit Kaylynn Walker SENIOR TRAINING SPECIALIST 09/26/2012 Office visit Kaylynn Mendez SENIOR TRAINING SPECIALIST 09/06/2012 Office visit Kaylynn Mendez SENIOR TRAINING SPECIALIST 09/06/2012 Office visit Odell Tierney MD 08/31/2012 Voided Kaylynn Mendez SENIOR TRAINING SPECIALIST 07/28/2012 Office visit Kaylynn Mendez SENIOR TRAINING SPECIALIST 07/27/2012 Office visit David Joyner DO 07/20/2012 [facility] DO 07/13/2012 [facility] DO 07/11/2012 Office visit Kaylynn Mendez SENIOR TRAINING SPECIALIST 06/27/2012 [facility] Odell Tierney MD 06/21/2012 Office visit David Joyner DO 06/21/2012 Office visit Odell Tierney MD 06/20/2012 Office visit Brittni Yanez SENIOR TRAINING SPECIALIST 06/06/2012 Office visit Odell Tierney MD 05/03/2012 Office visit Kaylynn Mendez SENIOR TRAINING SPECIALIST 04/28/2012 Office visit Brittni Yanez SENIOR TRAINING SPECIALIST 04/11/2012 Office visit Kaylynn Mendez SENIOR TRAINING SPECIALIST 04/06/2012 [facility] John Hoskins MD 03/30/2012 Office visit Kaylynn Mendez SENIOR TRAINING SPECIALIST 03/15/2012 Office visit Kaylynn Mendez SENIOR TRAINING SPECIALIST 03/15/2012 Office visit Odell Tierney MD 02/09/2012 Office visit Kaylynn Mendez SENIOR TRAINING SPECIALIST 12/23/2011 Office visit Kaylynn Mendez SENIOR TRAINING SPECIALIST 11/02/2011 Office visit Kaylynn Walker SENIOR TRAINING SPECIALIST 10/14/2011 Office visit Kaylynn Mendez SENIOR TRAINING SPECIALIST 09/27/2011 Office visit Kaylynn Mendez SENIOR TRAINING SPECIALIST 08/19/2011 [facility] Hoskins MD 08/18/2011 [facility] John Hoskins MD 08/18/2011 Office visit Kaylynn Mendez SENIOR TRAINING SPECIALIST 08/02/2011 Office visit Kaylynn Mendez SENIOR TRAINING SPECIALIST 07/08/2011 Office visit Kaylynn Mendez SENIOR TRAINING SPECIALIST 07/05/2011 Office visit Odell Tierney MD 06/15/2011 Office visit Kaylynn Mendez SENIOR TRAINING SPECIALIST 05/14/2011 Office visit Kaylynn Mendez SENIOR TRAINING SPECIALIST 05/11/2011 Office visit Odell Tierney MD 04/28/2011 Office visit Kaylynn Andrea SENIOR TRAINING SPECIALIST 03/02/2011 Office visit Chadd Norris DO [...] Office visit Vickie STEIN 02/04/2010 Surgery Yoan Csataneda MD 01/29/2010 Office visit Hillary RITCHIE 12/23/2009 Surgery Yoan Castaneda MD 12/16/2009 Surgery Yoan Castaneda MD 12/10/2009 Office visit Odell Tierney MD 11/26/2009 Office visit Yoan Castaneda MD 11/17/2009 Office visit Odell Tierney MD 11/10/2009 Office visit Chadd Norris DO
--- OUTSIDE RECORDS SUMMARY | 2018-05-09 17:02 | XMS REPORT ---
Author Author Kaylynn Mendez Organization [facility] Address [address] [place], [place] [id number] Care Team Providers Care Shoe Shanker Name Role Phone Kaylynn Mendez PCP Unavailable [...] 01/19/2016 APPLY BY EXTERNAL ROUTE ONCE DAILY [employer] IQ Meter HomeAwaycellaneous kit 01/21/2016 test 2 x daily, Dx: [...] route every 12 hours for 30 days doxycycline monohydrate 100 mg oral tablet 11/17/2016 11/24/2016 take 1 tablet (100 mg) by oral route every 12 hours for 7 days prednisone 20 mg oral tablet 11/17/2016 take 2 tablets x2 days then 1 tablet daily x4 ProAir HFA 90 mcg/actuation inhalation HFA aerosol inhaler 11/22/2016 inhale 1 puff (90 mcg) by inhalation route every 6 hours as needed Name Start Date Expiration Date SIG Comments [...] 08/27/2014 use as directed for 99 days [place] 5-325 mg oral tablet 06/17/2014 06/27/2014 take [...] a day as needed for 30 days [id number]-[id number]-BZ 3.5-10,000-1 mg/mL-unit/mL-% otic drops,suspension 201401/08/2015 instill 4 [...] Ok for similiar substitution or individual components. pwbzmfjh-hxhicpevi-FK 3.5-10,000-1 mg/mL-unit/mL-% otic drops,suspension 201607/23/2016 instill 4 [...] by nebulization route 4 times per day Problem List Description Status [...] 04/28/2011 12:00 AM Decadron 1 mg [facility]#[id number] (Jr) Reviewed 04/28/2011 12:00 AM Depo-Medrol 80 mg ND#[id number]-Jpcxvvby Reviewed 09/02/2015 12:00 AM Toradol 60 Mg ND#3045-5354-19 Reviewed 09/02/2015 12:00 AM Phenergan, Up to 50 Mg R[facility] Medicaid Reviewed 09/16/2015 12:00 AM Toradol 60 Mg ND#9071-0036-44 Reviewed 09/16/2015 12:00 AM Phenergan Up to 50 mg RHC Medicare Reviewed 05/11/2011 12:00 AM N BLOCK INJ OCCIPITAL Reviewed 05/11/2011 12:00 AM Kenalog Yr-[address]-20 ANNA Reviewed 11/13/2015 12:00 AM ASSAY OF [...] SC/IM Reviewed 07/08/2011 12:00 AM Toradol,15mg [facility]#[id number], [place] Reviewed 07/08/2011 12:00 AM Phenergan 50 Mg Im [facility] 4677-2165-57 [facility] Reviewed 01/21/2016 12:00 AM ECG MONIT/REPRT UP TO 48 HRS Returned 08/02/2011 12:00 AM THER/PROPH/DIAG INJ SC/IM Reviewed 08/02/2011 12:00 AM Decadron 1 mg [facility]#[id number] (Jr) Reviewed 08/02/2011 12:00 AM Depo-Medrol 80 mg [facility]#[id number]-Vmhcfwbx Reviewed 03/05/2016 12:00 AM COMPLETE CBC W/AUTO [...] Reviewed 09/27/2011 12:00 AM Depo-Medrol 80 mg NDC#[id number]-Lbxcqoiu Reviewed 09/27/2011 12:00 AM Depo-Medrol 40 mg NDC#[id number] Reviewed 07/06/2016 12:00 AM CHEST X-RAY 4/> [...] Reviewed 12/23/2011 12:00 AM Decadron 1 mg [facility]#[id number] (Jr) Reviewed 12/23/2011 12:00 AM Depo-Medrol 80 mg N[facility]#[id number]-Vdjkziya Reviewed 11/02/2016 11:45 AM URINALYSIS AUTO W/O SCOPE Reviewed 02/09/2012 12:00 AM THER/PROPH/DIAG INJ SC/IM Reviewed 02/09/2012 12:00 AM Decadron 1 mg [facility]#[id number] (Jr) Reviewed 02/09/2012 12:00 AM Depo-Medrol 80 mg N[facility]#[id number]-Rsjuswby Reviewed 03/15/2012 12:00 AM N BLOCK INJ OCCIPITAL Reviewed 03/15/2012 12:00 AM Kenalog Xt-[address]-20 ANNA Reviewed 04/11/2012 12:00 AM COMPLETE CBC W/AUTO DIFF WBC Reviewed 04/11/2012 12:00 AM COMPREHEN METABOLIC PANEL Reviewed 04/11/2012 12:00 AM LIPID PANEL Reviewed 04/11/2012 12:00 AM ASSAY THYROID STIM HORMONE Reviewed 04/11/2012 12:00 AM DESTRUCT PREMALG LES 2-14 Reviewed 06/20/2012 12:00 AM THER/PROPH/DIAG INJ SC/IM Reviewed 06/20/2012 12:00 AM Decadron, Per 1 Mg ND# [address]-45 Reviewed 06/20/2012 12:00 AM Depo-Medrol, Per 80 Mg ND#8588-9570-51 Reviewed 09/06/2012 12:00 AM N BLOCK INJ OCCIPITAL Reviewed 09/06/2012 12:00 AM Kenalog Ff-[address]-20 ANNA Reviewed 09/06/2012 12:00 AM X-RAY EXAM RIBS UNI 2 VIEWS Reviewed 09/26/2012 12:00 AM THER/PROPH/DIAG INJ SC/IM Reviewed 09/26/2012 12:00 AM Decadron, Per 1 Mg ND# [address]-15 Reviewed 09/26/2012 12:00 AM Depo-Medrol, Per 80 Mg ND#6806-3619-15 Reviewed 10/03/2012 12:00 AM URINALYSIS AUTO W/O SCOPE Reviewed 10/03/2012 12:00 AM THER/PROPH/DIAG INJ SC/IM Reviewed 10/03/2012 12:00 AM Toradol 60 Mg NDC#3756-4645-99 Reviewed 10/03/2012 12:00 AM Phenergan, 25Mg NDC#0674-7878-64 Reviewed 10/19/2012 12:00 AM N BLOCK INJ OCCIPITAL Reviewed 10/19/2012 12:00 AM Kenalog, Per 10 Mg [facility]#0121-7715-63 Reviewed 10/19/2012 12:00 AM Toradol 30 Mg [facility]#8570-7296-83 Reviewed 10/19/2012 12:00 AM THER/PROPH/DIAG INJ SC/IM Reviewed 10/31/2012 12:00 AM COMPLETE CBC W/AUTO DIFF WBC Reviewed 10/31/2012 12:00 AM COMPREHEN METABOLIC PANEL Reviewed 10/31/2012 12:00 AM LIPID PANEL Reviewed 10/31/2012 12:00 AM ELECTROCARDIOGRAM COMPLETE Reviewed 11/03/2012 12:[address] THORAX W/O & W/DYE Reviewed 11/08/2012 12:00 AM N BLOCK INJ OCCIPITAL Reviewed 11/08/2012 12:00 AM Kenalog Jv-[address]-20 ANNA Reviewed 11/27/2012 12:00 AM COMPLETE CBC [...] 12:00 AM Decadron, Per 1 Mg [facility]# [address]-88 Reviewed 01/25/2013 12:00 AM Depo-Medrol, Per 80 Mg [facility]#2944-6151-42 Reviewed 01/26/2013 12:00 AM IMMUNOTHERAPY ONE INJECTION [...] 12:00 AM Decadron, Per 1 Mg [facility]# [address]-31 Reviewed 05/16/2013 12:00 AM Depo-Medrol, Per 80 Mg [facility]#8649-9633-65 Reviewed 05/31/2013 12:00 AM IMMUNOTHERAPY INJECTIONS Reviewed 06/08/2013 12:00 AM IMMUNOTHERAPY INJECTIONS Reviewed 06/14/2013 12:00 AM IMMUNOTHERAPY INJECTIONS Reviewed 06/28/2013 12:00 AM IMMUNOTHERAPY INJECTIONS Reviewed 07/12/2013 12:00 AM X-RAY EXAM RIBS UNI 2 VIEWS Reviewed 07/18/2013 12:00 AM Toradol 60 Mg [facility]#4171-7193-32 Reviewed 07/18/2013 12:00 AM THER/PROPH/DIAG INJ SC/IM Reviewed 08/23/2013 12:00 AM COMPLETE CBC W/AUTO DIFF WBC Reviewed 08/23/2013 12:00 AM COMPREHEN METABOLIC PANEL Reviewed 08/23/2013 12:00 AM LIPID PANEL Reviewed 08/31/2013 12:00 AM X-RAY EXAM OF LOWER LEG Reviewed 09/04/2013 12:00 AM IMMUNOTHERAPY INJECTIONS Reviewed 09/14/2013 12:00 AM THER/PROPH/DIAG INJ SC/IM Reviewed 09/14/2013 12:00 AM Decadron, Per 1 Mg [facility]# [address]-16 Reviewed 09/14/2013 12:00 AM Depo-Medrol, Per 80 Mg [facility]#1106-9763-40 Reviewed 09/20/2013 12:00 AM IMMUNOTHERAPY INJECTIONS Reviewed [...] INJ OCCIPITAL Reviewed 12/10/2009 12:00 AM Kenalog Oc-[address]-20 ANNA Reviewed 12/16/2009 12:00 AM HIV-1ANTIBODY Reviewed 12/16/2009 12:00 AM COMPLETE CBC W/AUTO DIFF WBC Reviewed 12/16/2009 12:00 AM METABOLIC PANEL TOTAL CA Reviewed 12/16/2009 12:00 AM Type and screen Reviewed 12/16/2009 12:00 AM PROTHROMBIN TIME Reviewed 12/16/2009 12:00 AM THROMBOPLASTIN TIME PARTIAL Reviewed 03/18/2010 12:00 AM DRAIN/INJ JOINT/BURSA W/O US Reviewed 03/18/2010 12:00 AM Kenalog Dc-[address]-20 ANNA Reviewed 11/21/2013 12:00 AM RADEX HAND MINIMUM 3 VIEWS Reviewed 06/03/2010 12:00 AM INJ TRIGGER POINT 1/2 MUSCL Reviewed 06/03/2010 12:00 AM Kenalog per 10Mg [facility]#[address]-91(Niall) Reviewed 12/05/2013 12:00 AM COMPLETE CBC W/AUTO [...] 07/23/2010 12:00 AM Kenalog per 10Mg Im-[facility]#[address]-27(Niall) Reviewed 2014 12:00 AM COMPLETE CBC W/AUTO [...] INJ OCCIPITAL Reviewed 10/01/2010 12:00 AM Kenalog Mp-[address]-20 ANNA Reviewed 07/25/2014 12:00 AM THER/PROPH/DIAG INJ [...] Quant,IgM <0.80 RMSF , IgG, EIA Negative [facility] Spotted Fever,IgM 0.51 E. chaffeensis [...] 141 Influenza 04/24/2014 sanofi pasteur PMC Fluzone [id number] Intramuscular Left Upper Arm 02/27/2014 01/15/2014 141 Influenza 02/13/2015 sanofi pasteur PMC Fluzone [id number] Intramuscular Left Deltoid 02/13/2015 01/03/2015 140 Tdap 06/06/2015 [employer] SKB BOOSTRIX [id number] Intramuscular Left Deltoid 06/06/2015 07/23/2014 115 Influenza 03/18/2016 sanofi pasteur PMC Fluzone [id number] Intramuscular Left Deltoid 03/17/2016 01/03/2015 141 History [...] Lumbago Jun 6 2011 1:58PM Muscle Spasm Jul 05 [...] Feb 2 2014 3:51PM Tendon dysfunction Feb 2014 3:51PM Osteoporosis Jul 01 2014 3:51PM [...] 2014 2:15PM Dyspnea on exertion Sep 04 2015 2:15PM RSD (reflex sympathetic dystrophy) Sep 04 [...] Number Start Date Medicare RHC Medicare RHC [id number] N/A [facility] - RHC - [employer] [facility] [place] RHC Comm [id number] N/A Medicare Part A Medicare - Lab/Xray [id number] N/A Medicare Part B Medicare Of [place] [id number] Monday, February 28, 2000 [place] [facility] [place] [facility] [place] [facility] [place] [id number] Tuesday, November 10, 2009 Medicare Part A Medicare Part A [id number] N/A [place] [employer] - RHC [place] [employer] - RHC [id number] [facility] Plan of [facility] Plan of [id number] Wednesday, May 30, 2012 History of Encounters Visit Date Visit Type Provider 11/17/2016 Office visit Kaylynn Mendez APARTMENT RENTAL AGENT 11/05/2016 Office visit Riccardo Cardoza MD 11/02/2016 Office visit Heena Dumont MD 10/06/2016 Office visit Kaylynn Mendez APARTMENT RENTAL AGENT 09/22/2016 Office visit Heena Dumont MD 09/09/2016 Office visit Kaylynn Mendez APARTMENT RENTAL AGENT 08/27/2016 Office visit Riccardo Cardoza MD 08/26/2016 Office visit Heena Dumont MD 07/09/2016 Office visit Riccardo Cardoza MD 07/06/2016 Office visit Heena Dumont MD 06/18/2016 Office visit Kaylynn Mendez APARTMENT RENTAL AGENT 06/07/2016 Office visit Sundeep Russell APARTMENT RENTAL AGENT 06/04/2016 Office visit Heena Dumont MD 05/13/2016 Office visit Heena Dumont MD 05/03/2016 Office visit Heena Dumont MD 04/26/2016 Office visit Kaylynn Mendez APARTMENT RENTAL AGENT 04/14/2016 Office visit Heena Dumont MD 04/13/2016 Office visit Kaylynn Mendez APARTMENT RENTAL AGENT 04/02/2016 Office visit Lena El APARTMENT RENTAL AGENT 04/02/2016 Office visit Heena Dumont MD 03/26/2016 Office visit Yesica Falcon APARTMENT RENTAL AGENT 03/17/2016 Office visit Heena Dumont MD 03/05/2016 Office visit Kaylynn Mendez APARTMENT RENTAL AGENT 02/16/2016 Office visit Heena Dumont MD 02/14/2016 Office visit Na Jones APARTMENT RENTAL AGENT 01/16/2016 Office visit Heena Dumont MD 12/16/2015 Office visit Heena Dumont MD 11/24/2015 Office visit Kaylynn Mendez APARTMENT RENTAL AGENT 11/18/2015 Office visit Heena Dumont MD 11/03/2015 Office visit Sundeep Russell APARTMENT RENTAL AGENT 10/20/2015 Office visit Kaylynn Walker APARTMENT RENTAL AGENT 09/23/2015 Office visit Kaylynn Walker APARTMENT RENTAL AGENT 09/16/[address] Pepe Figueroa MD 09/02/2015 Office visit Kaylynn Walker APARTMENT RENTAL AGENT 09/01/2015 Office visit Kaylynn Walker APARTMENT RENTAL AGENT 07/30/2015 Office visit Heena Dumont MD 07/15/2015 Office visit Kaylynn Walker APARTMENT RENTAL AGENT 07/04/2015 Office visit Heena Dumont MD 06/06/2015 Office visit Heena Dumont MD 06/06/2015 Office visit Kaylynn Walker APARTMENT RENTAL AGENT 06/02/2015 Office visit Kaylynn Walker APARTMENT RENTAL AGENT 05/26/2015 Office visit Kaylynn Walker APARTMENT RENTAL AGENT 05/20/2015 Office visit Kaylynn Mendez APARTMENT RENTAL AGENT 05/08/2015 Office visit Heena Dumont MD 05/06/2015 Office visit Kaylynn Mendez APARTMENT RENTAL AGENT 04/29/2015 Office visit Kaylynn Mendez APARTMENT RENTAL AGENT 03/27/2015 Voided Brittni Yanez APARTMENT RENTAL AGENT 03/21/2015 Office visit Heena Dumont MD 03/12/2015 Office visit Kaylynn Mendez APARTMENT RENTAL AGENT 02/26/2015 Office visit Brittni Yanez APARTMENT RENTAL AGENT 02/13/2015 Office visit Heena Dumont MD 01/15/2015 Office visit Brittni Yanez APARTMENT RENTAL AGENT 01/13/2015 Office visit Heena Dumont MD 01/08/[address] Carol Fowler MD 01/01/2015 Office visit Brittni Yanez APARTMENT RENTAL AGENT 12/13/2014 Office visit Heena Dumont MD 11/27/2014 Office visit Kaylynn Mendez APARTMENT RENTAL AGENT 11/14/2014 Office visit Heena Dumont MD 10/18/2014 Office visit Heena Dumont MD 10/17/2014 [facility] John Hoskins MD 10/09/2014 Office visit Heena Dumont MD 09/25/2014 Office visit Heena Dumont MD 09/17/2014 Office visit Kaylynn Mendez APARTMENT RENTAL AGENT 09/04/2014 Office visit Heena Dumont MD 08/28/2014 Office visit Kaylynn Mendez APARTMENT RENTAL AGENT 08/23/2014 Hospital John Hoskins MD 08/01/2014 Office visit Kaylynn Mendez APARTMENT RENTAL AGENT 07/29/2014 Office visit Heena Dumont MD 07/25/2014 Nurse visit Heena Dumont MD 07/17/2014 Office visit Kaylynn Mendez APARTMENT RENTAL AGENT 07/11/2014 Office visit Heena Dumont MD 07/01/2014 Office visit Heena Dumont MD 06/25/2014 Office visit Kaylynn Mendez APARTMENT RENTAL AGENT 06/12/2014 Office visit Kaylynn Mendez APARTMENT RENTAL AGENT 06/06/2014 Office visit Kaylynn Mendez APARTMENT RENTAL AGENT 05/27/2014 Office visit Heena Dumont MD 04/20/2014 Office visit Yesica Falcon APARTMENT RENTAL AGENT 03/29/2014 Office visit Na Jones APARTMENT RENTAL AGENT 03/15/2014 Office visit Heena Dumont MD 2014 Office visit Heena Dumont MD 2014 [facility] Eliseo Hoskins MD 02/27/2014 Nurse visit Heena Dumont MD 02/13/2014 Office visit Lena El APARTMENT RENTAL AGENT 02/07/2014 Office visit Heena Dumont MD 02/03/2014 Office visit Na Jones APARTMENT RENTAL AGENT 01/30/2014 Office visit Kaylynn Mendez APARTMENT RENTAL AGENT 01/24/2014 Office visit Sundeep Russell APARTMENT RENTAL AGENT 01/16/2014 Office visit Kaylynn Mendez APARTMENT RENTAL AGENT 01/10/2014 Nurse visit Kaylynn Mendez APARTMENT RENTAL AGENT 01/08/2014 Office visit Kaylynn Walker APARTMENT RENTAL AGENT 12/05/2013 Office visit Kaylynn Walker APARTMENT RENTAL AGENT 11/21/2013 Office visit Kaylynn Mendez APARTMENT RENTAL AGENT 10/23/2013 Office visit Brittni Yanez APARTMENT RENTAL AGENT 10/17/2013 Nurse visit Heena Dumont MD 10/12/2013 Office visit Kaylynn Mendez APARTMENT RENTAL AGENT 10/02/2013 Office visit Heena Dumont MD 09/20/2013 Nurse visit Kaylynn Mendez APARTMENT RENTAL AGENT 09/20/2013 Voided Heena Dumont MD 09/14/2013 Office visit Kaylynn Walker APARTMENT RENTAL AGENT 09/05/2013 Office visit Sundeep Russell APARTMENT RENTAL AGENT 09/04/2013 Nurse visit Kaylynn Walker APARTMENT RENTAL AGENT 08/31/2013 Office visit Kaylynn Walker APARTMENT RENTAL AGENT 08/23/2013 Office visit Heena Dumont MD 08/10/2013 Office visit Kaylynn Walker APARTMENT RENTAL AGENT 07/25/2013 Office visit Kaylynn Walker APARTMENT RENTAL AGENT 07/18/2013 Office visit Kaylynn Walker APARTMENT RENTAL AGENT 07/12/2013 Office visit Kaylynn Walker APARTMENT RENTAL AGENT 06/28/2013 Nurse visit Kaylynn Walker APARTMENT RENTAL AGENT 06/14/2013 Nurse visit Kaylynn Walker APARTMENT RENTAL AGENT 06/08/2013 Nurse visit Kaylynn Walker APARTMENT RENTAL AGENT 05/31/2013 Nurse visit Chadd Norris DO 05/18/2013 Office visit Terese Davidson MD 05/16/2013 Office visit Kaylynn Mendez APARTMENT RENTAL AGENT 05/09/2013 Office visit Kaylynn Walker APARTMENT RENTAL AGENT 04/29/2013 [facility] John Hoskins MD 04/25/2013 Nurse visit Kaylynn Walker APARTMENT RENTAL AGENT 04/17/2013 Office visit Kaylynn Walker APARTMENT RENTAL AGENT 04/03/2013 Nurse visit Kaylynn Mendez APARTMENT RENTAL AGENT 04/03/2013 Office visit Terese Davidson MD 03/28/2013 Office visit Sundeep Russell APARTMENT RENTAL AGENT 03/21/2013 Office visit Kaylynn Mendez APARTMENT RENTAL AGENT 03/20/2013 Office visit Terese Davidson MD 03/14/2013 Nurse visit Kaylynn Mendez APARTMENT RENTAL AGENT 03/05/2013 Nurse visit Kaylynn Mendez APARTMENT RENTAL AGENT 02/19/2013 Office visit Terese Davidson MD 02/16/2013 Nurse visit Kaylynn Mendez APARTMENT RENTAL AGENT 02/09/2013 Office visit Sundeep Russell APARTMENT RENTAL AGENT 02/08/2013 Nurse visit Kaylynn Walker APARTMENT RENTAL AGENT 02/01/2013 Nurse visit Kaylynn Mendez APARTMENT RENTAL AGENT 01/26/2013 Nurse visit Sabrina Mendez SOFTWARE PUBLISHER 01/25/2013 Office visit Kaylynn Mendez APARTMENT RENTAL AGENT 01/22/2013 Office visit Yoan Castaneda MD 01/18/2013 Nurse visit Kaylynn Walker APARTMENT RENTAL AGENT 01/11/2013 Nurse visit Kaylynn Walker APARTMENT RENTAL AGENT 01/05/2013 Nurse visit Kaylynn Walker APARTMENT RENTAL AGENT 12/29/2012 Office visit Kaylynn Mendez APARTMENT RENTAL AGENT 11/27/2012 Office visit Kaylynn Mendez APARTMENT RENTAL AGENT 11/08/2012 Office visit Odell Tierney MD 11/08/2012 Voided Odell Tierney MD 11/07/2012 Office visit Kaylynn Mendez APARTMENT RENTAL AGENT 10/31/2012 [facility] John Hoskins MD 10/31/2012 Office visit Kaylynn Mendez APARTMENT RENTAL AGENT 10/19/2012 Office visit Genoveva Ayala APARTMENT RENTAL AGENT 10/10/2012 Office visit Kaylynn Mendez APARTMENT RENTAL AGENT 10/03/2012 Office visit Kalyynn Walker APARTMENT RENTAL AGENT 09/26/2012 Office visit Kaylynn Walker APARTMENT RENTAL AGENT 09/06/2012 Office visit Kaylynn Mendez APARTMENT RENTAL AGENT 09/06/2012 Office visit Odell Tierney MD 08/31/2012 Voided Kaylynn Mendez APARTMENT RENTAL AGENT 07/28/2012 Office visit Kaylynn Mendez APARTMENT RENTAL AGENT 07/27/2012 Office visit David Joyner DO 07/20/2012 [facility] David Joyner DO 07/13/2012 [facility] David Joyner DO 07/11/2012 Office visit Kaylynn Mendez APARTMENT RENTAL AGENT 06/27/2012 Hospital Odell Tierney MD 06/21/2012 Office visit David Joyner DO 06/21/2012 Office visit Odell Tierney MD 06/20/2012 Office visit Brittni Yanez APARTMENT RENTAL AGENT 06/06/2012 Office visit Odell Tierney MD 05/03/2012 Office visit Kaylynn Mendez APARTMENT RENTAL AGENT 04/28/2012 Office visit Brittni Yanez APARTMENT RENTAL AGENT 04/11/2012 Office visit Kaylynn Mendez APARTMENT RENTAL AGENT 04/06/2012 [facility] John Hoskins MD 03/30/2012 Office visit Kaylynn Mendez APARTMENT RENTAL AGENT 03/15/2012 Office visit Kaylynn Mendez APARTMENT RENTAL AGENT 03/15/2012 Office visit Odell Tierney MD 02/09/2012 Office visit Kaylynn Menedz APARTMENT RENTAL AGENT 12/23/2011 Office visit Kaylynn Mendez APARTMENT RENTAL AGENT 11/02/2011 Office visit Kaylynn Mendez APARTMENT RENTAL AGENT 10/14/2011 Office visit Kaylynn Mendez APARTMENT RENTAL AGENT 09/27/2011 Office visit Kaylynn Mendez APARTMENT RENTAL AGENT 08/19/2011 Hospital John Hoskins MD 08/18/2011 [facility] John Hoskins MD 08/18/2011 Office visit Kaylynn Andrea APARTMENT RENTAL AGENT 08/02/2011 Office visit Kaylynn Andrea APARTMENT RENTAL AGENT 07/08/2011 Office visit Kaylynn Mendez APARTMENT RENTAL AGENT 07/05/2011 Office visit Odell Tierney MD 06/15/2011 Office visit Kaylynn Mendez APARTMENT RENTAL AGENT 05/14/2011 Office visit Kaylynn Mendez APARTMENT RENTAL AGENT 05/11/2011 Office visit Odell Tierney MD 04/28/2011 Office visit Kaylynn Mendez APARTMENT RENTAL AGENT 03/02/2011 Office visit Chadd Norris DO 02/17/2011 [...]
--- OUTSIDE RECORDS SUMMARY | 2018-05-09 17:06 | XMS REPORT ---
Author Kaylynn Lyles Organization [facility] Address [address] [place], [place] [id number] Care Team Providers Care Sugar Grinder Name Role Phone Kaylynn Mendez PCP Unavailable [...] TIMES PER DAY PRN MUSCLE SPASM OneTouch Delica Lancets 33 gauge miscellaneous misc [...] 09/05/2015 apply by external route once daily omeprazole 20 mg oral capsule,delayed release(DR/EC) 05/19/2015 [...] 1 TABLET BY MOUTH EVERY DAY hydrocodone-acetaminophen 7.5-325 mg oral tablet 08/28/2015 09/27/2015 take 1 tablet by oral route every 8 hours for 30 days Flovent HFA 220 mcg/actuation inhalation HFA aerosol [...] 30 minutes before meals for 30 days Name Start Date Expiration [...] 08/27/2014 use as directed for 99 days Convoy 5-325 mg oral tablet 06/17/2014 06/27/2014 take [...] a day as needed for 30 days flnmbzos-hprrdvvlh-CY 3.5-10,000-1 mg/mL-unit/mL-% otic drops,suspension 201401/08/2015 instill 4 [...] oral route once daily for 7 days naproxen 500 mg oral tablet 05/19/2015 [...] HC BMI BSA BMI Percentile O2 Sat(%) 09/02/2015 2:12:00 PM 118 mmHg 64 mmHg [...] Reviewed 04/28/2011 12:00 AM Decadron 1 mg ND#[id number] (Jr) Reviewed 04/28/2011 12:00 AM Depo-Medrol 80 mg NDC#[id number]-Lmbbcdll Reviewed 09/02/2015 12:00 AM Phenergan, Up to 50 Mg RHC Medicaid Reviewed 05/11/2011 12:00 AM N BLOCK INJ OCCIPITAL Reviewed 05/11/2011 12:00 AM Kenalog Er-[address]-20 ANNA Reviewed 06/15/2011 12:00 AM COMPLETE CBC W/AUTO DIFF WBC Returned 06/15/2011 12:00 AM COMPREHEN METABOLIC PANEL Returned 07/08/2011 12:00 AM THER/PROPH/DIAG INJ SC/IM Reviewed 07/08/2011 12:00 AM Toradol,15mg ND#[id number], Brunildaer Reviewed 07/08/2011 12:00 AM Phenergan 50 Mg Im Formerly Named [facility] [id number] [facility] Reviewed 08/02/2011 12:00 AM THER/PROPH/DIAG INJ SC/IM Reviewed 08/02/2011 12:00 AM Decadron 1 mg ND#[id number] (Jr) Reviewed 08/02/2011 12:00 AM Depo-Medrol 80 mg ND#[id number]-Xtxujiit Reviewed 09/27/2011 12:00 AM THER/PROPH/DIAG INJ SC/IM Reviewed 09/27/2011 12:00 AM Depo-Medrol 80 mg ND#[id number]-Afermggt Reviewed 10/14/2011 12:00 AM X-RAY EXAM OF ABDOMEN Returned 10/14/2011 12:00 AM URINALYSIS AUTO W/O SCOPE Reviewed 12/23/2011 12:00 AM THER/PROPH/DIAG INJ SC/IM Reviewed 12/23/2011 12:00 AM Decadron 1 mg NDC#[id number] (Jr) Reviewed 12/23/2011 12:00 AM Depo-Medrol 80 mg NDC#[id number]-Vcgsesiu Reviewed 02/09/2012 12:00 AM THER/PROPH/DIAG INJ SC/IM Reviewed 02/09/2012 12:00 AM Decadron 1 mg ND#[id number] (Jr) Reviewed 02/09/2012 12:00 AM Depo-Medrol 80 mg ND#[id number]-Bsfpufqs Reviewed 03/15/2012 12:00 AM N BLOCK INJ OCCIPITAL Reviewed 03/15/2012 12:00 AM Kenalog Nj-[address]-20 ANNA Reviewed 04/11/2012 12:00 AM COMPLETE CBC W/AUTO DIFF WBC Returned 04/11/2012 12:00 AM COMPREHEN METABOLIC PANEL Returned 04/11/2012 12:00 AM LIPID PANEL Returned 04/11/2012 12:00 AM ASSAY THYROID STIM HORMONE Returned 06/20/2012 12:00 AM THER/PROPH/DIAG INJ SC/IM Reviewed 06/20/2012 12:00 AM Decadron, Per 1 Mg ND# [address]-32 Reviewed 06/20/2012 12:00 AM Depo-Medrol, Per 80 Mg ND#5091-6404-60 Reviewed 09/06/2012 12:00 AM N BLOCK INJ OCCIPITAL Reviewed 09/06/2012 12:00 AM Kenalog Jc-[address]-20 ANNA Reviewed 09/06/2012 12:00 AM X-RAY EXAM RIBS UNI 2 VIEWS Returned 09/26/2012 12:00 AM THER/PROPH/DIAG INJ SC/IM Reviewed 09/26/2012 12:00 AM Decadron, Per 1 Mg ND# [address]-37 Reviewed 09/26/2012 12:00 AM Depo-Medrol, Per 80 Mg ND#8568-1917-39 Reviewed 10/03/2012 12:00 AM URINALYSIS AUTO W/O SCOPE Reviewed 10/03/2012 12:00 AM THER/PROPH/DIAG INJ SC/IM Reviewed 10/03/2012 12:00 AM Toradol 60 Mg ND#3657-1608-06 Reviewed 10/03/2012 12:00 AM Phenergan, 25Mg ND#2079-2358-45 Reviewed 10/19/2012 12:00 AM N BLOCK INJ OCCIPITAL Reviewed 10/19/2012 12:00 AM Kenalog, Per 10 Mg ND#3799-7078-59 Reviewed 10/19/2012 12:00 AM Toradol 30 Mg [facility]#8110-5115-29 Reviewed 10/19/2012 12:00 AM THER/PROPH/DIAG INJ SC/IM Reviewed 10/31/2012 12:00 AM COMPLETE CBC W/AUTO DIFF WBC Returned 10/31/2012 12:00 AM COMPREHEN METABOLIC PANEL Returned 10/31/2012 12:00 AM LIPID PANEL Returned 11/03/2012 12:[address] THORAX W/O & W/DYE Returned 11/08/2012 12:00 AM N BLOCK INJ OCCIPITAL Reviewed 11/08/2012 12:00 AM Kenalog Vd-224[address]-2006-20 ANNA Reviewed 11/27/2012 12:00 AM COMPLETE CBC [...] Decadron, Per 1 Mg [facility]# [address]-11 Reviewed 01/25/2013 12:00 AM Depo-Medrol, Per 80 Mg [facility]#3819-4186-78 Reviewed 01/26/2013 12:00 AM IMMUNOTHERAPY INJECTIONS Returned [...] Decadron, Per 1 Mg [facility]# [address]-72 Reviewed 05/16/2013 12:00 AM Depo-Medrol, Per 80 Mg [facility]#9320-1238-76 Reviewed 05/31/2013 12:00 AM IMMUNOTHERAPY INJECTIONS Reviewed 06/08/2013 12:00 AM IMMUNOTHERAPY INJECTIONS Reviewed 06/14/2013 12:00 AM IMMUNOTHERAPY INJECTIONS Reviewed 06/28/2013 12:00 AM IMMUNOTHERAPY INJECTIONS Reviewed 07/12/2013 12:00 AM X-RAY EXAM RIBS UNI 2 VIEWS Returned 07/18/2013 12:00 AM Toradol 60 Mg [facility]#4974-0697-11 Reviewed 07/18/2013 12:00 AM THER/PROPH/DIAG INJ SC/IM Reviewed 08/23/2013 12:00 AM COMPLETE CBC W/AUTO DIFF WBC Reviewed 08/23/2013 12:00 AM COMPREHEN METABOLIC PANEL Reviewed 08/23/2013 12:00 AM LIPID PANEL Reviewed 08/31/2013 12:00 AM X-RAY EXAM OF LOWER LEG Returned 09/04/2013 12:00 AM IMMUNOTHERAPY INJECTIONS Reviewed 09/14/2013 12:00 AM THER/PROPH/DIAG INJ SC/IM Reviewed 09/14/2013 12:00 AM Decadron, Per 1 Mg [facility]# [address]-57 Reviewed 09/14/2013 12:00 AM Depo-Medrol, Per 80 Mg [facility]#1973-5642-87 Reviewed 09/20/2013 12:00 AM IMMUNOTHERAPY INJECTIONS Reviewed [...] INJ OCCIPITAL Reviewed 12/10/2009 12:00 AM Kenalog Hf-[address]-20 ANNA Reviewed 12/16/2009 12:00 AM HIV-1ANTIBODY Reviewed 12/16/2009 12:00 AM COMPLETE CBC W/AUTO DIFF WBC Reviewed 12/16/2009 12:00 AM METABOLIC PANEL TOTAL CA Reviewed 12/16/2009 12:00 AM Type and screen Reviewed 12/16/2009 12:00 AM PROTHROMBIN TIME Reviewed 12/16/2009 12:00 AM THROMBOPLASTIN TIME PARTIAL Reviewed 03/18/2010 12:00 AM DRAIN/INJ JOINT/BURSA W/O US Reviewed 03/18/2010 12:00 AM Kengretta Jv-[address]-20 ANNA Reviewed 11/21/2013 12:00 AM RADEX HAND MINIMUM 3 VIEWS Returned 06/03/2010 12:00 AM INJ TRIGGER POINT 1/2 MUSCL Reviewed 06/03/2010 12:00 AM Kenalog per 10Mg -Formerly Named [facility]#[address]-29(Niall) Reviewed 12/05/2013 12:00 AM COMPLETE CBC W/AUTO [...] Named [facility]#[id number](Niall) Reviewed 2014 12:00 AM COMPLETE CBC W/AUTO [...] INJ OCCIPITAL Reviewed 10/01/2010 12:00 AM Kenalog Kj-[address]-20 ANNA Reviewed 07/25/2014 12:00 AM THER/PROPH/DIAG INJ [...] 0.60 mg/dLCALCIUM 10.90 mg/ dLeGFR >60 mL/min/1.73 [id number] 45.0 U/L 08/31/2013 10:54 AM GLUCOSE 255.0 [...] 0.40 mg/ dLCALCIUM 10.60 mg/dLeGFR >60 mL/min/1.73 [id number] 369.0 mg/ dLCHOLESTEROL 153.0 mg/dLHDL 26.0 mg/dLLDL [...] BILI 0.30 mg/dLCALCIUM 10.0 mg/dLeGFR >60 mL/min/1.73 [id number] YELLOW APPEARANCE CLEAR SPEC GRAV 1.010 pH [...] dLCHOLESTEROL 264.0 mg/dLHDL 15.0 mg/dLLDL 167.0 mg/dL History Of Immunizations Name Date Admin Mfg Name Mfg Code Trade Name Lot# Route Inj Vis Given Vis Pub CVX Influenza 03/30/2011 Not Entered NE Not Entered Not Entered Not Entered 03/31/2011 05/30/2015 141 Influenza 04/24/2014 sanofi pasteur PMC Fluzone [id number] Intramuscular Left Upper Arm 02/27/2014 01/15/2014 141 Influenza 02/13/2015 sanofi pasteur PMC Fluzone [id number] Intramuscular Left Deltoid 02/13/2015 01/03/2015 140 Tdap [...] 1:58PM Muscle Spasm Feb 2011 1:58PM Headache Jul 08 2011 1:38PM [...] status migrainosus Sep 02 2015 2: 14PM Payers Insurance Name Company Name Plan Name Plan Number Policy Number Policy Group Number Start Date Medicare Part A Medicare Part A [facility] [id number] N/A [facility] Comm [id number] N/A Medicare Part B Medicare Of [place] [id number] Monday, 2000 [place] [facility] [employer] [place] [facility] [employer] [facility] [id number] Tuesday, 2009 Medicare Part A Medicare Part A [id number] N/A [place] [employer] - [facility] [place] [employer] - [facility] [id number] May [facility] Comm Plan of [id number] Wednesday, 2012 History of Encounters Visit Date Visit Type Provider 09/02/2015 Office visit Kaylynn Mendez APRN 09/01/2015 Office visit Kaylynn Mendez DEMONSTRATOR SALES 07/30/2015 Office visit Heena Dumont MD 07/15/2015 Office visit Kaylynn Mendez [employer]STRATOR SALES 07/04/2015 Office visit Heena Dumont MD 06/06/2015 Office visit Heena Dumont MD 06/06/2015 Office visit Kaylynn Mendez DEMONSTRATOR SALES 06/02/2015 Office visit Kaylynn Walker DEMONSTRATOR SALES 05/26/2015 Office visit Kaylynn Walker DEMONSTRATOR SALES 05/20/2015 Office visit Kaylynn Mendez DEMONSTRATOR SALES 05/08/2015 Office visit Heena Dumont MD 05/06/2015 Office visit Kaylynn Mendez DEMONSTRATOR SALES 04/29/2015 Office visit Kaylynn Mendez DEMONSTRATOR SALES 03/27/2015 Voided Brittni Yanez DEMONSTRATOR SALES 03/21/2015 Office visit Heena Dumont MD 03/12/2015 Office visit Kaylynn Mendez DEMONSTRATOR SALES 02/26/2015 Office visit Brittni Yanez DEMONSTRATOR SALES 02/13/2015 Office visit Heena Dumont MD 01/15/2015 Office visit Brittni Yanez DEMONSTRATOR SALES 01/13/2015 Office visit Heena Dumont MD 01/08/[address] Carol Fowler MD 01/01/2015 Office visit Brittni Yanez DEMONSTRATOR SALES 12/13/2014 Office visit Heena Dumont MD 11/27/2014 Office visit Kaylynn Mendez DEMONSTRATOR SALES 11/14/2014 Office visit Heena Dumont MD 10/18/2014 Office visit Heena Dumont MD 10/17/2014 [facility] Eliseo Hoskins MD 10/09/2014 Office visit Heena Dumont MD 09/25/2014 Office visit Heena Dumont MD 09/17/2014 Office visit Kaylynn Mendez DEMONSTRATOR SALES 09/04/2014 Office visit Heena Dumont MD 08/28/2014 Office visit Kaylynn Mendez DEMONSTRATOR SALES 08/23/2014 [facility] Eliseo Hoskins MD 08/01/2014 Office visit Kaylynn Mendez [employer]STRATOR SALES 07/29/2014 Office visit Heena Dumont MD 07/25/2014 Nurse visit Heena Dumont MD 07/17/2014 Office visit Kaylynn Mendez [employer]ATOR SALES 07/11/2014 Office visit Heena Dumont MD 07/01/2014 Office visit Heena Dumont MD 06/25/2014 Office visit Kaylynn Mendez DEMONSTRATOR SALES 06/12/2014 Office visit Kaylynn Mendez DEMONSTRATOR SALES 06/06/2014 Office visit Kaylynn Mendez DEMONSTRATOR SALES 05/27/2014 Office visit Heena Dumont MD 04/20/2014 Office visit Yesica Falcon DEMONSTRATOR SALES 03/29/2014 Office visit Na Jones DEMONSTRATOR SALES 03/15/2014 Office visit Heena Dumont MD 2014 Office visit Heena Dumont MD 2014 [facility] John Hoskins MD 02/27/2014 Nurse visit Heena Dumont MD 02/13/2014 Office visit Lena El DEMONSTRATOR SALES 02/07/2014 Office visit Heena Dumont MD 02/03/2014 Office visit Na Jones [employer]ONSTRATOR SALES 01/30/2014 Office visit Kaylynn Mendez DEMONSTRATOR SALES 01/24/2014 Office visit Sundeep Russell DEMONSTRATOR SALES 01/16/2014 Office visit Kaylynn Mendez DEMONSTRATOR SALES 01/10/2014 Nurse visit Kaylynn Mendez [employer]ONSTRATOR SALES 01/08/2014 Office visit Kaylynn Walker DEMONSTRATOR SALES 12/05/2013 Office visit Kaylynn Walker [employer]ONSTRATOR SALES 11/21/2013 Office visit Kaylynn Walker [employer]ONSTRATOR SALES 10/23/2013 Office visit Brittni Yanez DEMONSTRATOR SALES 10/17/2013 Nurse visit Heena Dumont MD 10/12/2013 Office visit Kaylynn Mendez [employer]ONSTRATOR SALES 10/02/2013 Office visit Heena Dumont MD 09/20/2013 Nurse visit Kaylynn Mendez [employer]STRATOR SALES 09/20/2013 Voided Heena Dumont MD 09/14/2013 Office visit Kaylynn Walker [employer]ONSTRATOR SALES 09/05/2013 Office visit Sundeep Russell DEMONSTRATOR SALES 09/04/2013 Nurse visit Kaylynn Mendez DEMONSTRATOR SALES 08/31/2013 Office visit Kaylynn Walker [employer]ONSTRATOR SALES 08/23/2013 Office visit Heena Dumont MD 08/10/2013 Office visit Kaylynn Mendez DEMONSTRATOR SALES 07/25/2013 Office visit Kaylynn Walker DEMONSTRATOR SALES 07/18/2013 Office visit Kaylynn Walker DEMONSTRATOR SALES 07/12/2013 Office visit Kaylynn Andrea [employer]ONSTRATOR SALES 06/28/2013 Nurse visit Kaylynn Walker DEMONSTRATOR SALES 06/14/2013 Nurse visit Kaylynn Mendez DEMONSTRATOR SALES 06/08/2013 Nurse visit Kaylynn Mendez DEMONSTRATOR SALES 05/31/2013 Nurse visit Chadd Norris DO 05/18/2013 Office visit Terese Davidson MD 05/16/2013 Office visit Kaylynn Mendez DEMONSTRATOR SALES 05/09/2013 Office visit Kaylynn Mendez DEMONSTRATOR SALES 04/29/2013 [facility] John Hoskins MD 04/25/2013 Nurse visit Kaylynn Walker DEMONSTRATOR SALES 04/17/2013 Office visit Kaylynn Walker [employer]ONSTRATOR SALES 04/03/2013 Nurse visit Kaylynn Mendez DEMONSTRATOR SALES 04/03/2013 Office visit Terese Davidson MD 03/28/2013 Office visit Sundeep Russell DEMONSTRATOR SALES 03/21/2013 Office visit Kaylynn Mendez DEMONSTRATOR SALES 03/20/2013 Office visit Terese Davidson MD 03/14/2013 Nurse visit Kaylynn Mendez DEMONSTRATOR SALES 03/05/2013 Nurse visit Kaylynn Walker DEMONSTRATOR SALES 02/19/2013 Office visit Terese Davidson MD 02/16/2013 Nurse visit Kaylynn Walker [employer]ONSTRATOR SALES 02/09/2013 Office visit Sundeep Russell DEMONSTRATOR SALES 02/08/2013 Nurse visit Kaylynn Walker DEMONSTRATOR SALES 02/01/2013 Nurse visit Kaylynn Walker DEMONSTRATOR SALES 01/26/2013 Nurse visit Sabrina Andrea ALMOND PASTE MIXER 01/25/2013 Office visit Kaylynn Andrea [employer]ONSTRATOR SALES 01/22/2013 Office visit Yoan Castaneda MD 01/18/2013 Nurse visit Kaylynn Walker [employer]ATOR SALES 01/11/2013 Nurse visit Kaylynn Walker [employer]ONSTRATOR SALES 01/05/2013 Nurse visit Kaylynn Walker [employer]ONSTRATOR SALES 12/29/2012 Office visit Kaylynn Walker [employer]ONSTRATOR SALES 11/27/2012 Office visit Kaylynn Mendez DEMONSTRATOR SALES 11/08/2012 Office visit Odell Tierney MD 11/08/2012 Voided Odell Tierney MD 11/07/2012 Office visit Kaylynn Mendez [employer]ONSTRATOR SALES 10/31/2012 [facility] John Hoskins MD 10/31/2012 Office visit Kaylynn Mendez DEMONSTRATOR SALES 10/19/2012 Office visit Genoveva Ayala DEMONSTRATOR SALES 10/10/2012 Office visit Kaylynn Mendez DEMONSTRATOR SALES 10/03/2012 Office visit Kaylynn Walker [employer]ONSTRATOR SALES 09/26/2012 Office visit Kaylynn Andrea DEMONSTRATOR SALES 09/06/2012 Office visit Kaylynn Mendez DEMONSTRATOR SALES 09/06/2012 Office visit Odell Tierney MD 08/31/2012 Voided Kaylynn Mendez DEMONSTRATOR SALES 07/28/2012 Office visit Kaylynn Mendez DEMONSTRATOR SALES 07/27/2012 Office visit David Joyner DO 07/20/2012 [facility] David Joyner DO 07/13/2012 [facility] David Joyner DO 07/11/2012 Office visit Kaylynn Mendez DEMONSTRATOR SALES 06/27/2012 [facility] Odell Tierney MD 06/21/2012 Office visit David Joyner DO 06/21/2012 Office visit Odell Tierney MD 06/20/2012 Office visit Brittni Yanez DEMONSTRATOR SALES 06/06/2012 Office visit Odell Tierney MD 05/03/2012 Office visit Kaylynn Mendez DEMONSTRATOR SALES 04/28/2012 Office visit Brittni Yanez DEMONSTRATOR SALES 04/11/2012 Office visit Kaylynn Mendez DEMONSTRATOR SALES 04/06/2012 [facility] John Hoskins MD 03/30/2012 Office visit Kaylynn Mendez DEMONSTRATOR SALES 03/15/2012 Office visit Kaylynn Mendez DEMONSTRATOR SALES 03/15/2012 Office visit Odell Tierney MD 02/09/2012 Office visit Kaylynn Mendez DEMONSTRATOR SALES 12/23/2011 Office visit Kaylynn Mendez DEMONSTRATOR SALES 11/02/2011 Office visit Kaylynn Mendez DEMONSTRATOR SALES 10/14/2011 Office visit Kaylynn Mendez DEMONSTRATOR SALES 09/27/2011 Office visit Kaylynn Mendez DEMONSTRATOR SALES 08/19/2011 Hospital John Hoskins MD 08/18/2011 Hospital John Hoskins MD 08/18/2011 Office visit Kaylynn Mendez DEMONSTRATOR SALES 08/02/2011 Office visit Kaylynn Mendez DEMONSTRATOR SALES 07/08/2011 Office visit Kaylynn Mendez DEMONSTRATOR SALES 07/05/2011 Office visit Odell Tierney MD 06/15/2011 Office visit Kaylynn Mendez DEMONSTRATOR SALES 05/14/2011 Office visit Kaylynn Andrea [employer]ONSTRATOR SALES 05/11/2011 Office visit Odell Tierney MD 04/28/2011 Office visit Kaylynn Mendez [employer]STRATOR SALES 03/02/2011 Office visit Chadd Norris DO 02/17/2011 [...] Odell Tierney MD 06/18/2010 Office visit Yoan Catsaneda MD 06/03/2010 Office visit Odell Tierney MD 03/18/2010 Office visit Odell Tierney MD 02/06/2010 Office visit Vickie STEIN 02/04/2010 Surgery Yoan Castaneda MD 01/29/2010 Office visit Hillary RITCHIE 12/23/2009 Surgery Yoan Castaneda MD 12/16/2009 Surgery Yoan Castaneda MD 12/10/2009 Office visit Odell Tierney MD 11/26/2009 Office visit Yoan Castanead MD 11/17/2009 Office visit Odell Tierney MD 11/10/2009 Office visit Chadd Norris DO
--- OUTSIDE RECORDS SUMMARY | 2018-05-09 17:09 | XMS REPORT ---
Author Author Heena Dumont Organization [facility] Address [address] [place], [place] [id number] Care Team Providers Care [employer] Manager Name Role Phone Heena Dumont PCP [...] TIMES PER DAY PRN MUSCLE SPASM promethazine oral tablet 25 mg 12/16/2014 TAKE [...] upper arm, upper thigh or abdomen oxycodone oral tablet 5 mg 01/13/2015 02/12/2015 take 1 tablet by oral [...] 08/27/2014 use as directed for 99 days [place] oral tablet 5-325 mg 06/17/2014 06/27/2014 take [...] route BID x 14 days. Started 10-04-14 Mildred Rogers oral capsule 100 mg 10/09/2014 10/16/2014 take 1 capsule by oral route 2 times a day for 7 days ondansetron oral tablet,disintegrating 4 mg 12/04/2014 01/03/2015 dissolve 1 tablet by oral route 2 times a day as needed for 30 days fsuaanpo-vazbxryyg-UT otic drops,suspension 3.5-10,000-1 mg/mL-unit/mL-% 201401/08/2015 instill 4 [...] the evening changed to crestor Flonase Nasal [place], Suspension 50 mcg/actuation 06/20/2012 10/31/2012 inhale 1 [...] HC BMI BSA BMI Percentile O2 Sat(%) 01/13/2015 4:28:00 PM 110 mmHg 70 mmHg 94 bpm 98.2 F 156.375 lbs 63 in 27.70 kg/m2 1.78 m2 99 % 01/08/2015 3:14:00 PM 114 mmHg 77 mmHg 77 bpm 97.2 F 158.125 lbs 63 in 28.0103 kg/m 1.7855 m 01/01/2015 2:18:00 PM 125 mmHg 70 mmHg 103 bpm 20 rpm 97.8 F 187 lbs 63 in 33.13 kg/m2 1.94 m2 98 % 12/13/2014 11:03:00 AM 112 mmHg 70 mmHg 86 bpm 97.7 F 156.25 lbs 63 in 27.6782 kg/m 1.7749 m 97 % 11/27/2014 9:57:00 AM 110 mmHg 80 mmHg 97 bpm 16 rpm 98.3 F 156 lbs 63 in 27.63 kg/m2 1.77 m2 96 % 11/14/2014 3:57:00 PM 112 mmHg 72 mmHg 90 bpm 99 F 156.5 lbs 63 in 27.7224 kg/m 1.7763 m 96 % 10/18/2014 11:46:00 AM 120 mmHg [...] 171.125 lbs 64 in 29.3732 kg/m 1.8722 09/27/2011 3:14:00 PM 136 mmHg 64 mmHg 68 bpm 18 rpm 97.1 F 166.5 lbs 64 in 28.58 kg/m2 1.85 m2 08/18/2011 10:40:00 AM 126 mmHg 72 mmHg 68 bpm 18 rpm 98.6 F 160.5 lbs 64 in 27.5495 kg/m 1.8131 08/02/2011 2:47:00 PM 120 mmHg 68 mmHg [...] Reviewed 04/28/2011 12:00 AM Decadron 1 mg NDC#[id number] (Jr) Reviewed 04/28/2011 12:00 AM Depo-Medrol 80 mg NDC#[id number]-Epebbarw Reviewed 05/11/2011 12:00 AM N BLOCK INJ OCCIPITAL Reviewed 05/11/2011 12:00 AM Kenalog Ft-[address]-20 ANNA Reviewed 06/15/2011 12:00 AM COMPLETE CBC W/AUTO DIFF WBC Returned 06/15/2011 12:00 AM COMPREHEN METABOLIC PANEL Returned 07/08/2011 12:00 AM THER/PROPH/DIAG INJ SC/IM Reviewed 07/08/2011 12:00 AM Toradol,15mg ND#[id number], Brunildaer Reviewed 07/08/2011 12:00 AM Phenergan 50 Mg Im Nd 7589-3287-78 FP [place] Reviewed 08/02/2011 12:00 AM THER/PROPH/DIAG INJ SC/IM Reviewed 08/02/2011 12:00 AM Decadron 1 mg NDC#[id number] (Jr) Reviewed 08/02/2011 12:00 AM Depo-Medrol 80 mg NDC#[id number]-Ycevzhux Reviewed 09/27/2011 12:00 AM THER/PROPH/DIAG INJ SC/IM Reviewed 09/27/2011 12:00 AM Depo-Medrol 80 mg NDC#[id number]-Bsqapusi Reviewed 09/27/2011 12:00 AM Depo-Medrol 40 mg NDC#[id number] Ordered 10/14/2011 12:00 AM X-RAY EXAM OF ABDOMEN Returned 10/14/2011 12:00 AM URINALYSIS AUTO W/O SCOPE Reviewed 12/23/2011 12:00 AM THER/PROPH/DIAG INJ SC/IM Reviewed 12/23/2011 12:00 AM Decadron 1 mg NDC#[id number] (Jr) Reviewed 12/23/2011 12:00 AM Depo-Medrol 80 mg NDC#[id number]-Gxcwvpnt Reviewed 02/09/2012 12:00 AM THER/PROPH/DIAG INJ SC/IM Reviewed 02/09/2012 12:00 AM Decadron 1 mg NDC#[id number] (Jr) Reviewed 02/09/2012 12:00 AM Depo-Medrol 80 mg NDC#[id number]-Ttszhicb Reviewed 03/15/2012 12:00 AM N BLOCK INJ OCCIPITAL Reviewed 03/15/2012 12:00 AM Kenalog Rt-[address]-20 ANNA Reviewed 04/11/2012 12:00 AM COMPLETE CBC W/AUTO DIFF WBC Returned 04/11/2012 12:00 AM COMPREHEN METABOLIC PANEL Returned 04/11/2012 12:00 AM LIPID PANEL Returned 04/11/2012 12:00 AM ASSAY THYROID STIM HORMONE Returned 04/11/2012 12:00 AM DESTRUCT PREMALG LES 2-14 Ordered 06/20/2012 12:00 AM THER/PROPH/DIAG INJ SC/IM Reviewed 06/20/2012 12:00 AM Decadron, Per 1 Mg ND# [address]-44 Reviewed 06/20/2012 12:00 AM Depo-Medrol, Per 80 Mg ND#2140-6935-72 Reviewed 09/06/2012 12:00 AM N BLOCK INJ OCCIPITAL Reviewed 09/06/2012 12:00 AM Kenalog Iy-[address]-20 ANNA Reviewed 09/06/2012 12:00 AM X-RAY EXAM RIBS UNI 2 VIEWS Returned 09/26/2012 12:00 AM THER/PROPH/DIAG INJ SC/IM Reviewed 09/26/2012 12:00 AM Decadron, Per 1 Mg ND# [address]-36 Reviewed 09/26/2012 12:00 AM Depo-Medrol, Per 80 Mg ND#2414-4931-74 Reviewed 10/03/2012 12:00 AM URINALYSIS AUTO W/O SCOPE Reviewed 10/03/2012 12:00 AM THER/PROPH/DIAG INJ SC/IM Reviewed 10/03/2012 12:00 AM Toradol 60 Mg ND#8266-7527-50 Reviewed 10/03/2012 12:00 AM Phenergan, 25Mg ND#8594-2541-27 Reviewed 10/19/2012 12:00 AM N BLOCK INJ OCCIPITAL Reviewed 10/19/2012 12:00 AM Kenalog, Per 10 Mg [facility]#6699-2235-42 Reviewed 10/19/2012 12:00 AM Toradol 30 Mg [facility]#6284-5989-79 Reviewed 10/19/2012 12:00 AM THER/PROPH/DIAG INJ SC/IM [...] INJ OCCIPITAL Reviewed 11/08/2012 12:00 AM Kenalog Cz-[address]-20 ANNA Reviewed 11/14/2012 12:00 AM LIVER IMAGING [...] 01/25/2013 12:00 AM Decadron, Per 1 Mg [facility]# [address]-79 Reviewed 01/25/2013 12:00 AM Depo-Medrol, Per 80 Mg [facility]#8197-1941-75 Reviewed 01/26/2013 12:00 AM IMMUNOTHERAPY ONE INJECTION Ordered 01/26/2013 12:00 AM IMMUNOTHERAPY INJECTIONS Returned 02/01/2013 12:00 AM IMMUNOTHERAPY INJECTIONS Reviewed 02/08/2013 12:00 AM IMMUNOTHERAPY INJECTIONS Reviewed 02/16/2013 12:00 AM IMMUNOTHERAPY INJECTIONS Reviewed 02/19/2013 12:00 AM N BLOCK INJ OCCIPITAL Ordered 02/19/2013 12:00 AM Kenalog Jv-[address]-20 ANNA Ordered 03/14/2013 12:00 AM IMMUNOTHERAPY INJECTIONS [...] 05/16/2013 12:00 AM Decadron, Per 1 Mg [facility]# [address]-42 Reviewed 05/16/2013 12:00 AM Depo-Medrol, Per 80 Mg [facility]#0816-0908-85 Reviewed 05/31/2013 12:00 AM IMMUNOTHERAPY INJECTIONS Reviewed 06/08/2013 12:00 AM IMMUNOTHERAPY INJECTIONS Reviewed 06/14/2013 12:00 AM IMMUNOTHERAPY INJECTIONS Reviewed 06/28/2013 12:00 AM IMMUNOTHERAPY INJECTIONS Reviewed 07/12/2013 12:00 AM X-RAY EXAM RIBS UNI 2 VIEWS Returned 07/18/2013 12:00 AM Toradol 60 Mg [facility]#1915-6762-84 Reviewed 07/18/2013 12:00 AM THER/PROPH/DIAG INJ SC/IM Reviewed 08/23/2013 12:00 AM COMPLETE CBC W/AUTO DIFF WBC Reviewed 08/23/2013 12:00 AM COMPREHEN METABOLIC PANEL Reviewed 08/23/2013 12:00 AM LIPID PANEL Reviewed 08/31/2013 12:00 AM X-RAY EXAM OF LOWER LEG Returned 09/04/2013 12:00 AM IMMUNOTHERAPY INJECTIONS Reviewed 09/14/2013 12:00 AM THER/PROPH/DIAG INJ SC/IM Reviewed 09/14/2013 12:00 AM Decadron, Per 1 Mg [facility]# [address]-44 Reviewed 09/14/2013 12:00 AM Depo-Medrol, Per 80 Mg [facility]#4507-4832-28 Reviewed 09/20/2013 12:00 AM IMMUNOTHERAPY INJECTIONS Reviewed [...] INJ OCCIPITAL Reviewed 12/10/2009 12:00 AM Quentin Hg-[address]-20 ANNA Reviewed 12/16/2009 12:00 AM HIV-1ANTIBODY Reviewed 12/16/2009 12:00 AM COMPLETE CBC W/AUTO DIFF WBC Reviewed 12/16/2009 12:00 AM METABOLIC PANEL TOTAL CA Reviewed 12/16/2009 12:00 AM Type and screen Reviewed 12/16/2009 12:00 AM PROTHROMBIN TIME Reviewed 12/16/2009 12:00 AM THROMBOPLASTIN TIME PARTIAL Reviewed 03/18/2010 12:00 AM DRAIN/INJ JOINT/BURSA W/O US Reviewed 03/18/2010 12:00 AM Quentin Qn-[address]-20 ANNA Reviewed 11/21/2013 12:00 AM RADEX HAND MINIMUM 3 VIEWS Returned 06/03/2010 12:00 AM INJ TRIGGER POINT 1/2 MUSCL Reviewed 06/03/2010 12:00 AM Kenalog per 10Mg Im-[facility]#[address]-54(Niall) Reviewed 12/05/2013 12:00 AM COMPLETE CBC W/AUTO [...] AM Kenalog per 10Mg Im-[facility]#[address]-58(Niall) Reviewed 2014 12:00 AM COMPLETE CBC W/AUTO DIFF WBC Returned 2014 12:00 AM COMPREHEN METABOLIC PANEL Returned 2014 12:00 AM ASSAY OF MAGNESIUM Returned 2014 12:00 AM ELECTROCARDIOGRAM COMPLETE Reviewed 03/29/2014 12:00 AM THER/PROPH/DIAG INJ SC/IM Ordered 03/29/2014 12:00 AM Rocephin 1 gram [facility]#8410-0025-13 Ordered 03/29/2014 12:00 AM THER/PROPH/DIAG INJ SC/IM Ordered 03/29/2014 12:00 AM Decadron, Per 1 Mg [facility]# [address]-69 Ordered 03/29/2014 12:00 AM THER/PROPH/DIAG INJ SC/IM Ordered 03/29/2014 12:00 AM Decadron, Per 1 Mg [facility]# [address]-70 Ordered 03/29/2014 12:00 AM Rocephin 1 gram [facility]#6756-7449-67 Ordered 04/24/2014 12:00 AM INFLUENZA VAC 4 [...] INJ OCCIPITAL Reviewed 10/01/2010 12:00 AM Kenalog Dn-[address]-20 ANNA Reviewed 07/25/2014 12:00 AM THER/PROPH/DIAG INJ [...] Returned 01/08/2015 12:00 AM SPECIMEN HANDLING OFFICE-LAB Ordered [...] 0.60 mg/dLCALCIUM 10.90 mg/ dLeGFR >60 mL/min/1.73 [id number] 45.0 U/L 08/31/2013 10:54 AM GLUCOSE 255.0 [...] 0.40 mg/ dLCALCIUM 10.60 mg/dLeGFR >60 mL/min/1.73 [id number] 369.0 mg/ dLCHOLESTEROL 153.0 mg/dLHDL 26.0 mg/dLLDL [...] BILI 0.30 mg/dLCALCIUM 10.0 mg/dLeGFR >60 mL/min/1.73 o1GQPXP YELLOW APPEARANCE CLEAR SPEC GRAV 1.010 pH [...] 141 Influenza 04/24/2014 sanofi pasteur PMC Fluzone [id number] Intramuscular Left Upper Arm 02/27/2014 01/15/2014 141 [...] pain, left b 2014 3:51PM Tendon dysfunction Feb 2 2014 [...] 2015 4:34PM Osteoporosis Jan 13 2015 4:34PM Payers Insurance Name Company Name Plan Name Plan Number Policy Number Policy Group Number Start Date Medicare Part A Medicare Part A [id number] N/A [facility] Plan [facility] RHC Comm [id number] N/A [place] [employer] - [facility] [employer] - C [id number] [facility] Comm Plan of [id number] Wednesday, 2012 Medicare Part B Medicare [place] [id number] Monday, 2000 [place] [employer] [place] [employer] [id number] Tuesday, 2009 History of Encounters Visit Date Visit Type Provider 01/13/2015 Office visit Heena Dumont MD 01/08/[address] Carol Fowler MD 01/01/2015 Office visit Brittni Yanez BELLOWS ASSEMBLER 12/13/2014 Office visit Heena Dumont MD 11/27/2014 Office visit Kaylynn Mendez [employer] ASSEM[employer]ER 11/14/2014 Office visit Heena Dumont MD 10/18/2014 Office visit Heena Dumont MD 10/09/2014 Office visit Heena Dumont MD 09/25/2014 Office visit Heena Dumont MD 09/17/2014 Office visit Kaylynn Mendez [employer] ASSEMBLER 09/04/2014 Office visit Heena Dumont MD 08/28/2014 Office visit Kaylynn Mendez BELLOWS ASSEMBLER 08/23/2014 [facility] Eliseo Hoskins MD 08/01/2014 Office visit Kaylynn Mendez [employer]LLOWS ASSEMBLER 07/29/2014 Office visit Heena Dumont MD 07/25/2014 Nurse visit Heena Dumont MD 07/17/2014 Office visit Kaylynn Mendez [employer] ASSEMBLER 07/11/2014 Office visit Heena Dumont MD 07/01/2014 Office visit Heena Dumont MD 06/25/2014 Office visit Kaylynn Mendez [employer] ASSEMBLER 06/12/2014 Office visit Kaylynn Mendez BELLOWS ASSEMBLER 06/06/2014 Office visit Kaylynn Mendez [employer]LLOWS ASSEMBLER 05/27/2014 Office visit Heena Dumont MD 04/20/2014 Office visit Yesica Falcon [employer]ER 03/29/2014 Office visit Na Jones [employer]OWS ASSEMBLER 03/15/2014 Office visit Heena Dumont MD 2014 Office visit Heena Dumont MD 2014 [facility] Eliseo Hoskins MD 02/27/2014 Nurse visit Heena Dumont MD 02/13/2014 Office visit Lena El [employer] ASSEMBLER 02/07/2014 Office visit Heena Dumont MD 02/03/2014 Office visit Na Jones [employer]LLOWS ASSEMBLER 01/30/2014 Office visit Kaylynn Mendez [employer]LLOWS ASSEMBLER 01/24/2014 Office visit Sundeep Russell [employer] ASSEMBLER 01/16/2014 Office visit Kaylynn Mendez [employer]LLOWS ASSEMBLER 01/10/2014 Nurse visit Kaylynn Mendez [employer]LLOWS ASSEMBLER 01/08/2014 Office visit Kaylynn Walker [employer]LLOWS ASSEMBLER 12/05/2013 Office visit Kaylynn Mendez BELLOWS ASSEMBLER 11/21/2013 Office visit Kaylynn Mendez BELLOWS ASSEMBLER 10/23/2013 Office visit Brittni Yanez [employer]LLOWS ASSEMBLER 10/17/2013 Nurse visit Heena Dumont MD 10/12/2013 Office visit Kaylynn Mendez [employer]LLOWS ASSEMBLER 10/02/2013 Office visit Heena Dumont MD 09/20/2013 Voided Heena Dumont MD 09/20/2013 Nurse visit Kaylynn Walker [employer] ASSEMBLER 09/14/2013 Office visit Kaylynn Walker BELLOWS ASSEMBLER 09/05/2013 Office visit Sundeep Russell [employer]LLOWS ASSEMBLER 09/04/2013 Nurse visit Kaylynn Walker BELLOWS ASSEMBLER 08/31/2013 Office visit Kaylynn Mendez BELLOWS ASSEMBLER 08/23/2013 Office visit Heena Dumont MD 08/10/2013 Office visit Kaylynn Walker [employer]LLOWS ASSEMBLER 07/25/2013 Office visit Kaylynn Walker BELLOWS ASSEMBLER 07/18/2013 Office visit Kaylynn Walker BELLOWS ASSEMBLER 07/12/2013 Office visit Kaylynn Walker BELLOWS ASSEMBLER 06/28/2013 Nurse visit Kaylynn Walker BELLOWS ASSEMBLER 06/14/2013 Nurse visit Kaylynn Mendez [employer]LLOWS ASSEMBLER 06/08/2013 Nurse visit Kaylynn Walker BELLOWS ASSEMBLER 05/31/2013 Nurse visit Chadd Norris DO 05/18/2013 Office visit Terese Davidson MD 05/16/2013 Office visit Kaylynn Mendez [employer]LLOWS ASSEMBLER 05/09/2013 Office visit Kaylynn Mendez BELLOWS ASSEMBLER 04/29/2013 [facility] John Hoskins MD 04/25/2013 Nurse visit Kaylynn Walker BELLOWS ASSEMBLER 04/17/2013 Office visit Kaylynn Walker BELLOWS ASSEMBLER 04/03/2013 Office visit Terese Davidson MD 04/03/2013 Nurse visit Kaylynn Mendez [employer]LLOWS ASSEMBLER 03/28/2013 Office visit Sundeep Russell [employer]LLOWS ASSEMBLER 03/21/2013 Office visit Kaylynn Mendez BELLOWS ASSEMBLER 03/20/2013 Office visit Terese Davidson MD 03/14/2013 Nurse visit Kaylynn Mendez [employer]LLOWS ASSEMBLER 03/05/2013 Nurse visit Kaylynn Mendez BELLOWS ASSEMBLER 02/19/2013 Office visit Terese Davidson MD 02/16/2013 Nurse visit Kaylynn Mendez [employer]LLOWS ASSEMBLER 02/09/2013 Office visit Sundeep Russell [employer]LLOWS ASSEMBLER 02/08/2013 Nurse visit Kaylynn Mendez BELLOWS ASSEMBLER 02/01/2013 Nurse visit Kaylynn Mendez BELLOWS ASSEMBLER 01/26/2013 Nurse visit Sabrina Mendez ADULT CARE PROVIDER 01/25/2013 Office visit Kaylynn Mendez [employer]LLOWS ASSEMBLER 01/22/2013 Office visit Yoan Castaneda MD 01/18/2013 Nurse visit Kaylynn Mendez BELLOWS ASSEMBLER 01/11/2013 Nurse visit Kaylynn Walker [employer]LLOWS ASSEMBLER 01/05/2013 Nurse visit Kaylynn Mendez BELLOWS ASSEMBLER 12/29/2012 Office visit Kaylynn Mendez BELLOWS ASSEMBLER 11/27/2012 Office visit Kaylynn Mendez BELLOWS ASSEMBLER 11/08/2012 Voided Odell Tierney MD 11/08/2012 Office visit Odell Tierney MD 11/07/2012 Office visit Kaylynn Mendez BELLOWS ASSEMBLER 10/31/2012 Office visit Kaylynn Mendez BELLOWS ASSEMBLER 10/31/2012 [facility] John Hoskins MD 10/19/2012 Office visit Genoveva Ayala [employer]LLOWS ASSEMBLER 10/10/2012 Office visit Kaylynn Mendez BELLOWS ASSEMBLER 10/03/2012 Office visit Kaylynn Walker BELLOWS ASSEMBLER 09/26/2012 Office visit Kaylynn Mendez BELLOWS ASSEMBLER 09/06/2012 Office visit Odell Tierney MD 09/06/2012 Office visit Kaylynn Mendez BELLOWS ASSEMBLER 08/31/2012 Voided Kaylynn Mendez BELLOWS ASSEMBLER 07/28/2012 Office visit Kaylynn Mendez BELLOWS ASSEMBLER 07/27/2012 Office visit David Joyner DO 07/20/2012 [facility] David Joyner DO 07/13/2012 [facility] David Joyner DO 07/11/2012 Office visit Kaylynn Mendez BELLOWS ASSEMBLER 06/27/2012 Hospital Odell Tierney MD 06/21/2012 Office visit Odell Tierney MD 06/21/2012 Office visit David Joyner DO 06/20/2012 Office visit Brittni Yanez BELLOWS ASSEMBLER 06/06/2012 Office visit Odell Tierney MD 05/03/2012 Office visit Kaylynn Mendez BELLOWS ASSEMBLER 04/28/2012 Office visit Brittni Yanez BELLOWS ASSEMBLER 04/11/2012 Office visit Kaylynn Mendez BELLOWS ASSEMBLER 04/06/2012 Hospital John Hoskins MD 03/30/2012 Office visit Kaylynn Mendez BELLOWS ASSEMBLER 03/15/2012 Office visit Odell Tierney MD 03/15/2012 Office visit Kaylynn Mendez BELLOWS ASSEMBLER 02/09/2012 Office visit Kaylynn Walker [employer]LLOWS ASSEMBLER 12/23/2011 Office visit Kaylynn Walker BELLOWS ASSEMBLER 11/02/2011 Office visit Kaylynn Mendez BELLOWS ASSEMBLER 10/14/2011 Office visit Kaylynn Mendez BELLOWS ASSEMBLER 09/27/2011 Office visit Kaylynn Andrea [employer]LLOWS ASSEMBLER 08/19/2011 Hospital John Hoskins MD 08/18/2011 Office visit Kaylynn Mendez BELLOWS ASSEMBLER 08/18/2011 [facility] John Hoskins MD 08/02/2011 Office visit Kaylynn Mendez BELLOWS ASSEMBLER 07/08/2011 Office visit Kaylynn Andrea [employer]LLOWS ASSEMBLER 07/05/2011 Office visit Odell Tierney MD 06/15/2011 Office visit Kaylynn Mendez [employer]LLOWS ASSEMBLER 05/14/2011 Office visit Kaylynn Mendez BELLOWS ASSEMBLER 05/11/2011 Office visit Odell Tierney MD 04/28/2011 Office visit Kaylynn Mendez [employer]LLOWS ASSEMBLER 03/02/2011 Office visit Chadd Norris DO 02/17/2011 [...]
--- OUTSIDE RECORDS SUMMARY | 2018-05-09 17:15 | XMS REPORT ---
Author Author Kaylynn Mendez Organization [facility] Address [address] [place], [place] [id number] Care Team Providers Care Interdisciplinary Professor Name Role Phone Kaylynn Mendez PCP Unavailable [...] 01/19/2016 APPLY BY EXTERNAL ROUTE ONCE DAILY [employer] ([employer]) IQ Meter Avancarcellaneous kit 01/21/2016 test 2 x daily, Dx: [...] inhalation route every 6 hours as needed Myrbetriq 25 mg oral tablet extended release 24 hr 11/22/2016 TAKE 1 TABLET (25 MG) BY ORAL ROUTE ONCE DAILY SWALLOWING WHOLE WITH WATER. DO NOT CRUSH, CHEW AND/OR DIVIDE. FOR 30 DAYS Name Start Date Expiration Date SIG [...] 08/27/2014 use as directed for 99 days [place] 5-325 mg oral tablet 06/17/2014 06/27/2014 take [...] a day as needed for 30 days tqjjnwnc-dgfmegyxa-VT 3.5-10,000-1 mg/mL-unit/mL-% otic drops,suspension 201401/08/2015 instill 4 [...] Ok for similiar substitution or individual components. oxmvltpo-oenbaqgzv-ZG 3.5-10,000-1 mg/mL-unit/mL-% otic drops,suspension 201607/23/2016 instill 4 [...] HC BMI BSA BMI Percentile O2 Sat(%) 11/23/2016 10:04:00 AM 118 mmHg 76 mmHg [...] Reviewed 04/28/2011 12:00 AM Decadron 1 mg [facility]#[id number] (Jr) Reviewed 04/28/2011 12:00 AM Depo-Medrol 80 mg [facility]#[id number]-Ylxzfvcy Reviewed 09/02/2015 12:00 AM Toradol 60 Mg ND#4133-9610-56 Reviewed 09/02/2015 12:00 AM Phenergan, Up to 50 Mg RHC Medicaid Reviewed 09/16/2015 12:00 AM Toradol 60 Mg ND#0044-5887-92 Reviewed 09/16/2015 12:00 AM Phenergan Up to 50 mg RHC Medicare Reviewed 05/11/2011 12:00 AM N BLOCK INJ OCCIPITAL Reviewed 05/11/2011 12:00 AM Kenalog Xg-[address]-20 ANNA Reviewed 11/13/2015 12:00 AM ASSAY OF [...] INJ SC/IM Reviewed 07/08/2011 12:00 AM Toradol,15mg [facility]#[id number], Adilene Reviewed 07/08/2011 12:00 AM Phenergan 50 Mg Im [facility] 4777-2275-61 ALLIE Hoskins Reviewed 01/21/2016 12:00 AM ECG MONIT/REPRT UP TO 48 HRS Returned 08/02/2011 12:00 AM THER/PROPH/DIAG INJ SC/IM Reviewed 08/02/2011 12:00 AM Decadron 1 mg [facility]#[id number] (Jr) Reviewed 08/02/2011 12:00 AM Depo-Medrol 80 mg [facility]#[id number]-Jrhfolcx Reviewed 03/05/2016 12:00 AM COMPLETE CBC W/AUTO DIFF WBC Reviewed 03/05/2016 12:00 AM STREP A ASSAY W/OPTIC Reviewed 03/05/2016 12:00 AM C-REACTIVE PROTEIN Reviewed 03/18/2016 12:00 AM [facility] MEDICARE - flu vaccine administration Reviewed [...] Reviewed 09/27/2011 12:00 AM Depo-Medrol 80 mg [facility]#[id number]-Uubfivyc Reviewed 09/27/2011 12:00 AM Depo-Medrol 40 mg [facility]#[id number] Reviewed 07/06/2016 12:00 AM CHEST X-RAY 4/> [...] Reviewed 12/23/2011 12:00 AM Decadron 1 mg [facility]#[id number] (Jr) Reviewed 12/23/2011 12:00 AM Depo-Medrol 80 mg [facility]#[id number]-Spfwfysb Reviewed 11/02/2016 11:45 AM URINALYSIS AUTO W/O SCOPE Reviewed 11/23/2016 12:00 AM COMPLETE CBC W/AUTO DIFF WBC Returned 11/23/2016 12:00 AM COMPREHEN METABOLIC PANEL Returned 11/23/2016 12:00 AM CHEST X-RAY 2VW FRONTAL&LATL Returned 11/23/2016 12:00 AM FIBRIN DEGRADE SEMIQUANT Returned 11/23/2016 12:00 AM ASSAY OF TROPONIN QUANT Returned 11/23/2016 12:00 AM ELECTROCARDIOGRAM TRACING Reviewed 02/09/2012 12:00 AM THER/PROPH/DIAG INJ SC/IM Reviewed 02/09/2012 12:00 AM Decadron 1 mg [facility]#[id number] () Reviewed 02/09/2012 12:00 AM Depo-Medrol 80 mg [facility]#[id number]-Quwtnbxj Reviewed 03/15/2012 12:00 AM N BLOCK INJ OCCIPITAL Reviewed 03/15/2012 12:00 AM Kenalog Bj-[address]-20 ANNA Reviewed 04/11/2012 12:00 AM COMPLETE CBC W/AUTO DIFF WBC Reviewed 04/11/2012 12:00 AM COMPREHEN METABOLIC PANEL Reviewed 04/11/2012 12:00 AM LIPID PANEL Reviewed 04/11/2012 12:00 AM ASSAY THYROID STIM HORMONE Reviewed 04/11/2012 12:00 AM DESTRUCT PREMALG LES 2-14 Reviewed 06/20/2012 12:00 AM THER/PROPH/DIAG INJ SC/IM Reviewed 06/20/2012 12:00 AM Decadron, Per 1 Mg ND# [address]-39 Reviewed 06/20/2012 12:00 AM Depo-Medrol, Per 80 Mg [facility]#5221-9738-18 Reviewed 09/06/2012 12:00 AM N BLOCK INJ OCCIPITAL Reviewed 09/06/2012 12:00 AM Kenalog Hf-[address]-20 ANNA Reviewed 09/06/2012 12:00 AM X-RAY EXAM RIBS UNI 2 VIEWS Reviewed 09/26/2012 12:00 AM THER/PROPH/DIAG INJ SC/IM Reviewed 09/26/2012 12:00 AM Decadron, Per 1 Mg [facility]# [address]-84 Reviewed 09/26/2012 12:00 AM Depo-Medrol, Per 80 Mg [facility]#7398-7576-53 Reviewed 10/03/2012 12:00 AM URINALYSIS AUTO W/O SCOPE Reviewed 10/03/2012 12:00 AM THER/PROPH/DIAG INJ SC/IM Reviewed 10/03/2012 12:00 AM Toradol 60 Mg [facility]#2176-4000-29 Reviewed 10/03/2012 12:00 AM Phenergan, 25Mg [facility]#9637-5813-75 Reviewed 10/19/2012 12:00 AM N BLOCK INJ OCCIPITAL Reviewed 10/19/2012 12:00 AM Kenalog, Per 10 Mg [facility]#4481-9684-20 Reviewed 10/19/2012 12:00 AM Toradol 30 Mg [facility]#5696-5426-39 Reviewed 10/19/2012 12:00 AM THER/PROPH/DIAG INJ SC/IM Reviewed 10/31/2012 12:00 AM COMPLETE CBC W/AUTO DIFF WBC Reviewed 10/31/2012 12:00 AM COMPREHEN METABOLIC PANEL Reviewed 10/31/2012 12:00 AM LIPID PANEL Reviewed 10/31/2012 12:00 AM ELECTROCARDIOGRAM COMPLETE Reviewed 11/03/2012 12:[address] THORAX W/O & W/DYE Reviewed 11/08/2012 12:00 AM N BLOCK INJ OCCIPITAL Reviewed 11/08/2012 12:00 AM Kenalog Nk-[address]-20 ANNA Reviewed 11/27/2012 12:00 AM COMPLETE CBC [...] 01/25/2013 12:00 AM Decadron, Per 1 Mg [facility]# [address]-54 Reviewed 01/25/2013 12:00 AM Depo-Medrol, Per 80 Mg [facility]#2741-6900-10 Reviewed 01/26/2013 12:00 AM IMMUNOTHERAPY ONE INJECTION [...] 05/16/2013 12:00 AM Decadron, Per 1 Mg [facility]# [address]-24 Reviewed 05/16/2013 12:00 AM Depo-Medrol, Per 80 Mg [facility]#3971-0733-02 Reviewed 05/31/2013 12:00 AM IMMUNOTHERAPY INJECTIONS Reviewed 06/08/2013 12:00 AM IMMUNOTHERAPY INJECTIONS Reviewed 06/14/2013 12:00 AM IMMUNOTHERAPY INJECTIONS Reviewed 06/28/2013 12:00 AM IMMUNOTHERAPY INJECTIONS Reviewed 07/12/2013 12:00 AM X-RAY EXAM RIBS UNI 2 VIEWS Reviewed 07/18/2013 12:00 AM Toradol 60 Mg [facility]#0687-8988-47 Reviewed 07/18/2013 12:00 AM THER/PROPH/DIAG INJ SC/IM Reviewed 08/23/2013 12:00 AM COMPLETE CBC W/AUTO DIFF WBC Reviewed 08/23/2013 12:00 AM COMPREHEN METABOLIC PANEL Reviewed 08/23/2013 12:00 AM LIPID PANEL Reviewed 08/31/2013 12:00 AM X-RAY EXAM OF LOWER LEG Reviewed 09/04/2013 12:00 AM IMMUNOTHERAPY INJECTIONS Reviewed 09/14/2013 12:00 AM THER/PROPH/DIAG INJ SC/IM Reviewed 09/14/2013 12:00 AM Decadron, Per 1 Mg [facility]# [address]-33 Reviewed 09/14/2013 12:00 AM Depo-Medrol, Per 80 Mg [facility]#3686-2248-34 Reviewed 09/20/2013 12:00 AM IMMUNOTHERAPY INJECTIONS Reviewed [...] INJ OCCIPITAL Reviewed 12/10/2009 12:00 AM Quentin Wh-[address]-20 ANNA Reviewed 12/16/2009 12:00 AM HIV-1ANTIBODY Reviewed 12/16/2009 12:00 AM COMPLETE CBC W/AUTO DIFF WBC Reviewed 12/16/2009 12:00 AM METABOLIC PANEL TOTAL CA Reviewed 12/16/2009 12:00 AM Type and screen Reviewed 12/16/2009 12:00 AM PROTHROMBIN TIME Reviewed 12/16/2009 12:00 AM THROMBOPLASTIN TIME PARTIAL Reviewed 03/18/2010 12:00 AM DRAIN/INJ JOINT/BURSA W/O US Reviewed 03/18/2010 12:00 AM Quentin Ks-[address]-20 ANNA Reviewed 11/21/2013 12:00 AM RADEX HAND MINIMUM 3 VIEWS Reviewed 06/03/2010 12:00 AM INJ TRIGGER POINT 1/2 MUSCL Reviewed 06/03/2010 12:00 AM Kenalog per 10Mg Im-[facility]#[address]-56(Niall) Reviewed 12/05/2013 12:00 AM COMPLETE CBC W/AUTO [...] Reviewed 07/23/2010 12:00 AM Kenalog per 10Mg Im-[facility]#[address]-10(Niall) Reviewed 2014 12:00 AM COMPLETE CBC W/AUTO [...] INJ OCCIPITAL Reviewed 10/01/2010 12:00 AM Kenalog Pz-[address]-20 ANNA Reviewed 07/25/2014 12:00 AM THER/PROPH/DIAG INJ [...] Quant,IgM <0.80 RMSF , IgG, EIA Negative [facility] Spotted Fever,IgM 0.51 E. [...] uIU/mLT3 TOTAL 93.0 ng/dLVITAMIN D 62.60 ng/mL 11/23/2016 10:50 AM WBC 21.9 RBC 4.30 [...] D-DIMER QUANT <0.19 TROPONIN-I AD <0.04 ng/mL History Of Immunizations Name Date Admin Mfg Name Mfg Code Trade Name Lot# Route Inj Vis Given Vis Pub CVX Influenza 03/30/2011 Not Entered NE Not Entered Not Entered Not Entered 03/31/2011 05/30/2016 141 Influenza 04/24/2014 sanofi pasteur PMC Fluzone [id number] Intramuscular Left Upper Arm 02/27/2014 01/15/2014 141 Influenza 02/13/2015 sanofi pasteur PMC Fluzone [id number] Intramuscular Left Deltoid 02/13/2015 01/03/2015 140 Tdap 06/06/2015 GlaxoSmithKline SKB BOOSTRIX [id number] Intramuscular Left Deltoid 06/06/2015 07/23/2014 115 Influenza 03/18/2016 sanofi pasteur PMC Fluzone [id number] Intramuscular Left Deltoid 03/17/2016 01/03/2015 141 History [...] Other chest pain Nov 23 2016 10:06AM Payers Insurance Name Company Name Plan Name Plan Number Policy Number Policy Group Number Start Date Medicare RHC Medicare RHC [id number] N/A [facility] - RHC - Community Plan of [facility] RHC Comm [id number] N/A Medicare Part A Medicare - Lab/Xray [id number] N/A Medicare Part B Medicare Of [place] [id number] Monday, February 28, 2000 [place] [employer] [place] [employer] [place] [id number] Tuesday, November 10, 2009 Medicare Part A Medicare Part A [id number] N/A [place] [employer] - RHC [place] [employer] - RHC [id number] [facility] Comm Plan of [id number] Wednesday, May 30, 2012 History of Encounters Visit Date Visit Type Provider 11/23/2016 Office visit Kaylynn Mendez P D DRIVER 11/17/2016 Office visit Kaylynn Mendez P D DRIVER 11/05/2016 Office visit Riccardo Cardoza MD 11/02/2016 Office visit Heena Dumont MD 10/06/2016 Office visit Kaylynn Mendez P D DRIVER 09/22/2016 Office visit Heena Dumont MD 09/09/2016 Office visit Kaylynn Mendez P D DRIVER 08/27/2016 Office visit Riccardo Cardoza MD 08/26/2016 Office visit Heena Dumont MD 07/09/2016 Office visit Riccardo Cardoza MD 07/06/2016 Office visit Heena Dumont MD 06/18/2016 Office visit Kaylynn Mendez P D DRIVER 06/07/2016 Office visit Sundeep Russell P D DRIVER 06/04/2016 Office visit Heena Dumont MD 05/13/2016 Office visit Heena Dumont MD 05/03/2016 Office visit Heena Dumont MD 04/26/2016 Office visit Kaylynn Mendez P D DRIVER 04/14/2016 Office visit Heena Dumont MD 04/13/2016 Office visit Kaylynn Mendez P D DRIVER 04/02/2016 Office visit Lena El P D DRIVER 04/02/2016 Office visit Heena Dumont MD 03/26/2016 Office visit Yesica Falcon P D DRIVER 03/17/2016 Office visit Heena Dumont MD 03/05/2016 Office visit Kaylynn Mendez P D DRIVER 02/16/2016 Office visit Heena Dumont MD 02/14/2016 Office visit Na Jones P D DRIVER 01/16/2016 Office visit Heena Dumont MD 12/16/2015 Office visit Heena Dumont MD 11/24/2015 Office visit Kaylynn Mendez P D DRIVER 11/18/2015 Office visit Heena Dumont MD 11/03/2015 Office visit Sundeep Russell P D DRIVER 10/20/2015 Office visit Kaylynn Walker P D DRIVER 09/23/2015 Office visit Kaylynn Walker P D DRIVER 09/16/[address] Pepe Figueroa MD 09/02/2015 Office visit Kaylynn Walker P D DRIVER 09/01/2015 Office visit Kaylynn Walker P D DRIVER 07/30/2015 Office visit Heena Dumont MD 07/15/2015 Office visit Kaylynn Mendez P D DRIVER 07/04/2015 Office visit Heena Dumont MD 06/06/2015 Office visit Heena Dumont MD 06/06/2015 Office visit Kaylynn Mendez P D DRIVER 06/02/2015 Office visit Kaylynn Walker P D DRIVER 05/26/2015 Office visit Kaylynn Mendez P D DRIVER 05/20/2015 Office visit Kaylynn Mendez P D DRIVER 05/08/2015 Office visit Heena Dumont MD 05/06/2015 Office visit Kaylynn Mendez P D DRIVER 04/29/2015 Office visit Kaylynn Mendez P D DRIVER 03/27/2015 Voided Brittni Yanez P D DRIVER 03/21/2015 Office visit Heena Dumont MD 03/12/2015 Office visit Kaylynn Mendez P D DRIVER 02/26/2015 Office visit Brittni Yanez P D DRIVER 02/13/2015 Office visit Heena Dumont MD 01/15/2015 Office visit Brittni Yanez P D DRIVER 01/13/2015 Office visit Heena Dumont MD 01/08/[address] Carol Fowler MD 01/01/2015 Office visit Brittni Yanez P D DRIVER 12/13/2014 Office visit Heena Dumont MD 11/27/2014 Office visit Kaylynn Mendez P D DRIVER 11/14/2014 Office visit Heena Dumont MD 10/18/2014 Office visit Heena Dumont MD 10/17/2014 [facility] Eliseo Hoskins MD 10/09/2014 Office visit Heena Dumont MD 09/25/2014 Office visit Heena Dumont MD 09/17/2014 Office visit Kaylynn Mendez P D DRIVER 09/04/2014 Office visit Heena Dumont MD 08/28/2014 Office visit Kaylynn Mendez P D DRIVER 08/23/2014 [facility] John Hoskins MD 08/01/2014 Office visit Kaylynn Mendez P D DRIVER 07/29/2014 Office visit Heena Dumont MD 07/25/2014 Nurse visit Heena Dumont MD 07/17/2014 Office visit Kaylynn Mendez P D DRIVER 07/11/2014 Office visit Heena Dumont MD 07/01/2014 Office visit Heena Dumont MD 06/25/2014 Office visit Kaylynn Mendez P D DRIVER 06/12/2014 Office visit Kaylynn Mendez P D DRIVER 06/06/2014 Office visit Kaylynn Mendez P D DRIVER 05/27/2014 Office visit Heena Dumont MD 04/20/2014 Office visit Yesica Falcon P D DRIVER 03/29/2014 Office visit Na Jones P D DRIVER 03/15/2014 Office visit Heena Dumont MD 2014 Office visit Heena Dumont MD 2014 [facility] John Hoskins MD 02/27/2014 Nurse visit Heena Dumont MD 02/13/2014 Office visit Lena El P D DRIVER 02/07/2014 Office visit Heena Dumont MD 02/03/2014 Office visit Na Jones P D DRIVER 01/30/2014 Office visit Kaylynn Mendez P D DRIVER 01/24/2014 Office visit Sundeep Russell P D DRIVER 01/16/2014 Office visit Kaylynn Mendez P D DRIVER 01/10/2014 Nurse visit Kaylynn Mendez P D DRIVER 01/08/2014 Office visit Kaylynn Mendez P D DRIVER 12/05/2013 Office visit Kaylynn Mendez P D DRIVER 11/21/2013 Office visit Kaylynn Mendez P D DRIVER 10/23/2013 Office visit Brittni Yanez P D DRIVER 10/17/2013 Nurse visit Heena Dumont MD 10/12/2013 Office visit Kaylynn Mendez P D DRIVER 10/02/2013 Office visit Heena Dumont MD 09/20/2013 Nurse visit Kaylynn Mendez P D DRIVER 09/20/2013 Voided Heena Dumont MD 09/14/2013 Office visit Kaylynn Mendez P D DRIVER 09/05/2013 Office visit Sundeep Russell P D DRIVER 09/04/2013 Nurse visit Kaylynn Mendez P D DRIVER 08/31/2013 Office visit Kaylynn Mendez P D DRIVER 08/23/2013 Office visit Heena Dumont MD 08/10/2013 Office visit Kaylynn Mendez P D DRIVER 07/25/2013 Office visit Kaylynn Mendez P D DRIVER 07/18/2013 Office visit Kaylynn Mendez P D DRIVER 07/12/2013 Office visit Kaylynn Walker P D DRIVER 06/28/2013 Nurse visit Kaylynn Walker P D DRIVER 06/14/2013 Nurse visit Kaylynn Walker P D DRIVER 06/08/2013 Nurse visit Kaylynn Walker P D DRIVER 05/31/2013 Nurse visit Chadd Norris DO 05/18/2013 Office visit Terese Davidson MD 05/16/2013 Office visit Kaylynn Walker P D DRIVER 05/09/2013 Office visit Kaylynn Walker P D DRIVER 04/29/2013 [facility] John Hoskins MD 04/25/2013 Nurse visit Kaylynn Walker P D DRIVER 04/17/2013 Office visit Kaylynn Walker P D DRIVER 04/03/2013 Nurse visit Kaylynn Walker P D DRIVER 04/03/2013 Office visit Terese Davidson MD 03/28/2013 Office visit Sundeep Russell P D DRIVER 03/21/2013 Office visit Kaylynn Walker P D DRIVER 03/20/2013 Office visit Terese Davidson MD 03/14/2013 Nurse visit Kaylynn Walker P D DRIVER 03/05/2013 Nurse visit Kaylynn Walker P D DRIVER 02/19/2013 Office visit Terese Davidson MD 02/16/2013 Nurse visit Kaylynn Walker P D DRIVER 02/09/2013 Office visit Sundeep Russell P D DRIVER 02/08/2013 Nurse visit Kaylynn Walker P D DRIVER 02/01/2013 Nurse visit Kaylynn Walker P D DRIVER 01/26/2013 Nurse visit Sabrina Mendez LIFTER DRIVER 01/25/2013 Office visit Kaylynn Walker P D DRIVER 01/22/2013 Office visit Yoan Castaneda MD 01/18/2013 Nurse visit Kaylynn Walker P D DRIVER 01/11/2013 Nurse visit Kaylynn Walker P D DRIVER 01/05/2013 Nurse visit Kaylynn Walker P D DRIVER 12/29/2012 Office visit Kaylynn Walker P D DRIVER 11/27/2012 Office visit Kaylynn Mendez P D DRIVER 11/08/2012 Office visit Odell Tierney MD 11/08/2012 Voided Odell Tierney MD 11/07/2012 Office visit Kaylynn Mendez P D DRIVER 10/31/2012 [facility] John Hoskins MD 10/31/2012 Office visit Kaylynn Walker P D DRIVER 10/19/2012 Office visit Genoveva Ayala P D DRIVER 10/10/2012 Office visit Kaylynn Walker P D DRIVER 10/03/2012 Office visit Kaylynn Walker P D DRIVER 09/26/2012 Office visit Kaylynn Walker P D DRIVER 09/06/2012 Office visit Kaylynn Walker P D DRIVER 09/06/2012 Office visit Odell Tierney MD 08/31/2012 Voided Kaylynn Mendez P D DRIVER 07/28/2012 Office visit Kaylynn Mendez P D DRIVER 07/27/2012 Office visit David Ar DO 07/20/2012 Hospital David Sherifftom DO 07/13/2012 Hospital David Ar DO 07/11/2012 Office visit Kaylynn Mendez P D DRIVER 06/27/2012 Hospital Odell Tierney MD 06/21/2012 Office visit David Joyner DO 06/21/2012 Office visit Odell Tierney MD 06/20/2012 Office visit Brittni Yanez P D DRIVER 06/06/2012 Office visit Odell Tierney MD 05/03/2012 Office visit Kaylynn Mendez P D DRIVER 04/28/2012 Office visit Brittni Yanez P D DRIVER 04/11/2012 Office visit Kaylynn Mendez P D DRIVER 04/06/2012 Hospital John Hoskins MD 03/30/2012 Office visit Kaylynn Mendez P D DRIVER 03/15/2012 Office visit Kaylynn Mendez P D DRIVER 03/15/2012 Office visit Odell Tierney MD 02/09/2012 Office visit Kaylynn Mendez P D DRIVER 12/23/2011 Office visit Kaylynn Mendez P D DRIVER 11/02/2011 Office visit Kaylynn Mendez P D DRIVER 10/14/2011 Office visit Kaylynn Mendez P D DRIVER 09/27/2011 Office visit Kaylynn Mendez P D DRIVER 08/19/2011 Hospital John Hoskins MD 08/18/2011 Hospital John Hoskins MD 08/18/2011 Office visit Kaylynn Mendez P D DRIVER 08/02/2011 Office visit Kaylynn Mendez P D DRIVER 07/08/2011 Office visit Kaylynn Mendez P D DRIVER 07/05/2011 Office visit Odell Tierney MD 06/15/2011 Office visit Kaylynn Mendez P D DRIVER 05/14/2011 Office visit Kaylynn Mendez P D DRIVER 05/11/2011 Office visit Odell Tierney MD 04/28/2011 Office visit Kaylynn Mendez P D DRIVER 03/02/2011 Office visit Chadd Norris DO 02/17/2011 [...]
--- OUTSIDE RECORDS SUMMARY | 2018-05-09 17:18 | XMS REPORT ---
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 Name Role Phone Kaylynn Mendez PCP Unavailable Allergies and Adverse Reactions Name Reaction Notes Aspirin Methadone Ultram Vicodin Plan of Treatment Planned Activity Comments Planned Date Planned Time Plan/Goal CINE/VID X-RAY THROAT/ESOPH 05/08/2015 12:00 AM BORDETELLA ANTIBODY 05/20/2015 12:00 AM FIBRIN DEGRADATION QUANT 05/20/2015 12:00 AM ELECTROCARDIOGRAM COMPLETE 10/31/2012 12:00 [...] 08/27/2014 use as directed for 99 days Orient 5-325 mg oral tablet 06/17/2014 06/27/2014 take [...] a day as needed for 30 days dvtoulew-zfougllsn-RC 3.5-10,000-1 mg/mL-unit/mL-% otic drops,suspension 201401/08/2015 instill 4 [...] 159.5 lbs 64 in 27.38 kg/m2 1.8075 03/02/2011 2:57:00 PM 134 mmHg 78 mmHg [...] 12:00 AM CHEST X-RAY 2VW FRONTAL&LATL Returned 04/28/2011 12:00 AM THER/PROPH/DIAG INJ SC/IM Reviewed 04/28/2011 12:00 AM Decadron 1 mg ND#[id number] (Jr) Reviewed 04/28/2011 12:00 AM Depo-Medrol 80 mg NDC#[id number]-Hrbylnch Reviewed 05/11/2011 12:00 AM N BLOCK INJ OCCIPITAL Reviewed 05/11/2011 12:00 AM Kenalog Kb-[address]-20 ANNA Reviewed 06/15/2011 12:00 AM COMPLETE CBC W/AUTO DIFF WBC Returned 06/15/2011 12:00 AM COMPREHEN METABOLIC PANEL Returned 07/08/2011 12:00 AM THER/PROPH/DIAG INJ SC/IM Reviewed 07/08/2011 12:00 AM Toradol,15mg ND#[id number], Adilene Reviewed 07/08/2011 12:00 AM Phenergan 50 Mg Im Nd 3598-6789-07 ALLIE Hoskins Reviewed 08/02/2011 12:00 AM THER/PROPH/DIAG INJ SC/IM Reviewed 08/02/2011 12:00 AM Decadron 1 mg NDC#[id number] (Jr) Reviewed 08/02/2011 12:00 AM Depo-Medrol 80 mg NDC#[id number]-Ovafbeuj Reviewed 09/27/2011 12:00 AM THER/PROPH/DIAG INJ SC/IM Reviewed 09/27/2011 12:00 AM Depo-Medrol 80 mg NDC#[id number]-Hozpqkih Reviewed 10/14/2011 12:00 AM X-RAY EXAM OF ABDOMEN Returned 10/14/2011 12:00 AM URINALYSIS AUTO W/O SCOPE Reviewed 12/23/2011 12:00 AM THER/PROPH/DIAG INJ SC/IM Reviewed 12/23/2011 12:00 AM Decadron 1 mg NDC#[id number] (Jr) Reviewed 12/23/2011 12:00 AM Depo-Medrol 80 mg NDC#[id number]-Dpwmqxpx Reviewed 02/09/2012 12:00 AM THER/PROPH/DIAG INJ SC/IM Reviewed 02/09/2012 12:00 AM Decadron 1 mg NDC#[id number] (Jr) Reviewed 02/09/2012 12:00 AM Depo-Medrol 80 mg NDC#[id number]-Dllusoia Reviewed 03/15/2012 12:00 AM N BLOCK INJ OCCIPITAL Reviewed 03/15/2012 12:00 AM Kenalog Ae-[address]-20 ANNA Reviewed 04/11/2012 12:00 AM COMPLETE CBC W/AUTO DIFF WBC Returned 04/11/2012 12:00 AM COMPREHEN METABOLIC PANEL Returned 04/11/2012 12:00 AM LIPID PANEL Returned 04/11/2012 12:00 AM ASSAY THYROID STIM HORMONE Returned 06/20/2012 12:00 AM THER/PROPH/DIAG INJ SC/IM Reviewed 06/20/2012 12:00 AM Decadron, Per 1 Mg ND# [address]-98 Reviewed 06/20/2012 12:00 AM Depo-Medrol, Per 80 Mg NDC#2597-5436-58 Reviewed 09/06/2012 12:00 AM N BLOCK INJ OCCIPITAL Reviewed 09/06/2012 12:00 AM Kenalog Lx-[address]-20 ANNA Reviewed 09/06/2012 12:00 AM X-RAY EXAM RIBS UNI 2 VIEWS Returned 09/26/2012 12:00 AM THER/PROPH/DIAG INJ SC/IM Reviewed 09/26/2012 12:00 AM Decadron, Per 1 Mg NDC# [address]-07 Reviewed 09/26/2012 12:00 AM Depo-Medrol, Per 80 Mg NDC#7236-2669-61 Reviewed 10/03/2012 12:00 AM URINALYSIS AUTO W/O SCOPE Reviewed 10/03/2012 12:00 AM THER/PROPH/DIAG INJ SC/IM Reviewed 10/03/2012 12:00 AM Toradol 60 Mg ND#2003-5500-31 Reviewed 10/03/2012 12:00 AM Phenergan, 25Mg ND#7170-2273-03 Reviewed 10/19/2012 12:00 AM N BLOCK INJ OCCIPITAL Reviewed 10/19/2012 12:00 AM Kenalog, Per 10 Mg ND#4892-3817-01 Reviewed 10/19/2012 12:00 AM Toradol 30 Mg ND#5843-2006-46 Reviewed 10/19/2012 12:00 AM THER/PROPH/DIAG INJ SC/IM Reviewed 10/31/2012 12:00 AM COMPLETE CBC W/AUTO DIFF WBC Returned 10/31/2012 12:00 AM COMPREHEN METABOLIC PANEL Returned 10/31/2012 12:00 AM LIPID PANEL Returned 11/03/2012 12:[address] THORAX W/O & W/DYE Returned 11/08/2012 12:00 AM N BLOCK INJ OCCIPITAL Reviewed 11/08/2012 12:00 AM Kenalog Vs-[address]-20 ANNA Reviewed 11/27/2012 12:00 AM COMPLETE CBC [...] 01/25/2013 12:00 AM Decadron, Per 1 Mg [facility]# [address]-67 Reviewed 01/25/2013 12:00 AM Depo-Medrol, Per 80 Mg [facility]#8551-0589-20 Reviewed 01/26/2013 12:00 AM IMMUNOTHERAPY INJECTIONS Returned [...] 05/16/2013 12:00 AM Decadron, Per 1 Mg [facility]# [address]-09 Reviewed 05/16/2013 12:00 AM Depo-Medrol, Per 80 Mg [facility]#2349-0134-56 Reviewed 05/31/2013 12:00 AM IMMUNOTHERAPY INJECTIONS Reviewed 06/08/2013 12:00 AM IMMUNOTHERAPY INJECTIONS Reviewed 06/14/2013 12:00 AM IMMUNOTHERAPY INJECTIONS Reviewed 06/28/2013 12:00 AM IMMUNOTHERAPY INJECTIONS Reviewed 07/12/2013 12:00 AM X-RAY EXAM RIBS UNI 2 VIEWS Returned 07/18/2013 12:00 AM Toradol 60 Mg [facility]#3195-9230-70 Reviewed 07/18/2013 12:00 AM THER/PROPH/DIAG INJ SC/IM Reviewed 08/23/2013 12:00 AM COMPLETE CBC W/AUTO DIFF WBC Reviewed 08/23/2013 12:00 AM COMPREHEN METABOLIC PANEL Reviewed 08/23/2013 12:00 AM LIPID PANEL Reviewed 08/31/2013 12:00 AM X-RAY EXAM OF LOWER LEG Returned 09/04/2013 12:00 AM IMMUNOTHERAPY INJECTIONS Reviewed 09/14/2013 12:00 AM THER/PROPH/DIAG INJ SC/IM Reviewed 09/14/2013 12:00 AM Decadron, Per 1 Mg [facility]# [address]-51 Reviewed 09/14/2013 12:00 AM Depo-Medrol, Per 80 Mg [facility]#5815-0279-40 Reviewed 09/20/2013 12:00 AM IMMUNOTHERAPY INJECTIONS Reviewed [...] INJ OCCIPITAL Reviewed 12/10/2009 12:00 AM Kenalog Ds-[address]-20 ANNA Reviewed 12/16/2009 12:00 AM HIV-1ANTIBODY Reviewed 12/16/2009 12:00 AM COMPLETE CBC W/AUTO DIFF WBC Reviewed 12/16/2009 12:00 AM METABOLIC PANEL TOTAL CA Reviewed 12/16/2009 12:00 AM Type and screen Reviewed 12/16/2009 12:00 AM PROTHROMBIN TIME Reviewed 12/16/2009 12:00 AM THROMBOPLASTIN TIME PARTIAL Reviewed 03/18/2010 12:00 AM DRAIN/INJ JOINT/BURSA W/O US Reviewed 03/18/2010 12:00 AM Kenalog Af-[address]-20 ANNA Reviewed 11/21/2013 12:00 AM RADEX HAND MINIMUM 3 VIEWS Returned 06/03/2010 12:00 AM INJ TRIGGER POINT 1/2 MUSCL Reviewed 06/03/2010 12:00 AM Kenalog per 10Mg [facility]#[address]-50(Niall) Reviewed 12/05/2013 12:00 AM COMPLETE CBC W/AUTO [...] Reviewed 07/23/2010 12:00 AM Kenalog per 10Mg [facility]#[address]-82(Niall) Reviewed 2014 12:00 AM COMPLETE CBC W/AUTO [...] INJ OCCIPITAL Reviewed 10/01/2010 12:00 AM Kenalog Bb-[address]-20 ANNA Reviewed 07/25/2014 12:00 AM THER/PROPH/DIAG INJ [...] 0.60 mg/dLCALCIUM 10.90 mg/ dLeGFR >60 mL/min/1.73 [id number] 45.0 U/L 08/31/2013 10:54 AM GLUCOSE 255.0 [...] 0.40 mg/ dLCALCIUM 10.60 mg/dLeGFR >60 mL/min/1.73 [id number] 369.0 mg/ dLCHOLESTEROL 153.0 mg/dLHDL 26.0 mg/dLLDL [...] BILI 0.30 mg/dLCALCIUM 10.0 mg/dLeGFR >60 mL/min/1.73 [id number] YELLOW APPEARANCE CLEAR SPEC GRAV 1.010 pH [...] BILI 0.40 mg/dLCALCIUM 9.80 mg/dLeGFR >60 mL/min/1.73m History Of Immunizations Name Date Admin Mfg Name Mfg Code Trade Name Lot# Route Inj Vis Given Vis Pub CVX Influenza 03/30/2011 Not Entered NE Not Entered Not Entered Not Entered 03/31/2011 05/30/2015 141 Influenza 04/24/2014 sanofi pasteur PMC Fluzone [id number] Intramuscular Left Upper Arm 02/27/2014 01/15/2014 141 Influenza 02/13/2015 sanofi pasteur PMC Fluzone [id number] Intramuscular Left Deltoid 02/13/2015 01/03/2015 140 History [...] 3:51PM Tendon dysfunction b 2014 3:51PM Osteoporosis Jul 01 2014 3:51PM [...] Date Medicare Part A Medicare Part A [id number] N/A [facility] [id number] N/A [employer]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 [facility] [id number] May [facility] Comm Plan of [id number] Wednesday, 2012 Medicare Part B Medicare [place] [id number] Monday, 2000 [place] [employer] [facility] [place] [employer] [facility]g [id number] Tuesday, 2009 History of Encounters Visit Date Visit Type Provider 05/20/2015 Office visit Kaylynn Mendez MACHINIST INSTRUCTOR 05/08/2015 Office visit Heena Dumont MD 05/06/2015 Office visit Kaylynn Mendez MACHINIST INSTRUCTOR 04/29/2015 Office visit Kaylynn Mendez MACHINIST INSTRUCTOR 03/27/2015 Voided Brittni Yanez MACHINIST INSTRUCTOR 03/21/2015 Office visit Heena Dumont MD 03/12/2015 Office visit Kaylynn Mendez MACHINIST INSTRUCTOR 02/26/2015 Office visit Brittni Yanez MACHINIST INSTRUCTOR 02/13/2015 Office visit Heena Dumont MD 01/15/2015 Office visit Brittni Yanez MACHINIST INSTRUCTOR 01/13/2015 Office visit Heena Dumont MD 01/08/[address] Carol Fowler MD 01/01/2015 Office visit Brittni Yanez MACHINIST INSTRUCTOR 12/13/2014 Office visit Heena Dumont MD 11/27/2014 Office visit Kaylynn Mendez MACHINIST INSTRUCTOR 11/14/2014 Office visit Heena Dumont MD 10/18/2014 Office visit Heena Dumont MD 10/17/2014 [facility] Eliseo Hoskins MD 10/09/2014 Office visit Heena Dumont MD 09/25/2014 Office visit Heena Dumont MD 09/17/2014 Office visit Kaylynn Mendez MACHINIST INSTRUCTOR 09/04/2014 Office visit Heena Dumont MD 08/28/2014 Office visit Kaylynn Mendez MACHINIST INSTRUCTOR 08/23/2014 [facility] Eliseo Hoskins MD 08/01/2014 Office visit Kaylynn Mendez MACHINIST INSTRUCTOR 07/29/2014 Office visit Heena Dumont MD 07/25/2014 Nurse visit Heena Dumont MD 07/17/2014 Office visit Kaylynn Mendez MACHINIST INSTRUCTOR 07/11/2014 Office visit Henea Dumont MD 07/01/2014 Office visit Heena Dumont MD 06/25/2014 Office visit Kaylynn Mendez MACHINIST INSTRUCTOR 06/12/2014 Office visit Kaylynn Mendez MACHINIST INSTRUCTOR 06/06/2014 Office visit Kaylynn Mendez MACHINIST INSTRUCTOR 05/27/2014 Office visit Heena Dumont MD 04/20/2014 Office visit Yesica Falcon MACHINIST INSTRUCTOR 03/29/2014 Office visit Na Jones MACHINIST INSTRUCTOR 03/15/2014 Office visit Heena Dumont MD 2014 Office visit Heena Dumont MD 2014 [facility] John Hoskins MD 02/27/2014 Nurse visit Heena Dumont MD 02/13/2014 Office visit Lena El MACHINIST INSTRUCTOR 02/07/2014 Office visit Heena Dumont MD 02/03/2014 Office visit Na Jones MACHINIST INSTRUCTOR 01/30/2014 Office visit Kaylynn Mendez MACHINIST INSTRUCTOR 01/24/2014 Office visit Sundeep Russell MACHINIST INSTRUCTOR 01/16/2014 Office visit Kaylynn Mendez MACHINIST INSTRUCTOR 01/10/2014 Nurse visit Kaylynn Mendez MACHINIST INSTRUCTOR 01/08/2014 Office visit Kaylynn Mendez MACHINIST INSTRUCTOR 12/05/2013 Office visit Kaylynn Mendez MACHINIST INSTRUCTOR 11/21/2013 Office visit Kaylynn Mendez MACHINIST INSTRUCTOR 10/23/2013 Office visit Brittni Yanez MACHINIST INSTRUCTOR 10/17/2013 Nurse visit Heena Dumont MD 10/12/2013 Office visit Kaylynn Mendez MACHINIST INSTRUCTOR 10/02/2013 Office visit Heena Dumont MD 09/20/2013 Nurse visit Kaylynn Mendez MACHINIST INSTRUCTOR 09/20/2013 Voided Heena Dumont MD 09/14/2013 Office visit Kaylynn Mendez MACHINIST INSTRUCTOR 09/05/2013 Office visit Sundeep Russell MACHINIST INSTRUCTOR 09/04/2013 Nurse visit Kaylynn Walker MACHINIST INSTRUCTOR 08/31/2013 Office visit Kaylynn Walker MACHINIST INSTRUCTOR 08/23/2013 Office visit Heena Dumont MD 08/10/2013 Office visit Kaylynn Walker MACHINIST INSTRUCTOR 07/25/2013 Office visit Kaylynn Walker MACHINIST INSTRUCTOR 07/18/2013 Office visit Kaylynn Walker MACHINIST INSTRUCTOR 07/12/2013 Office visit Kaylynn Walker MACHINIST INSTRUCTOR 06/28/2013 Nurse visit Kaylynn Walker MACHINIST INSTRUCTOR 06/14/2013 Nurse visit Kaylynn Walker MACHINIST INSTRUCTOR 06/08/2013 Nurse visit Kaylynn Walker MACHINIST INSTRUCTOR 05/31/2013 Nurse visit Chadd Norris DO 05/18/2013 Office visit Terese Davidson MD 05/16/2013 Office visit Kaylynn Walker MACHINIST INSTRUCTOR 05/09/2013 Office visit Kaylynn Walker MACHINIST INSTRUCTOR 04/29/2013 [facility] John Hoskins MD 04/25/2013 Nurse visit Kaylynn Walker MACHINIST INSTRUCTOR 04/17/2013 Office visit Kaylynn Walker MACHINIST INSTRUCTOR 04/03/2013 Nurse visit Kaylynn Walker MACHINIST INSTRUCTOR 04/03/2013 Office visit eTrese Davidson MD 03/28/2013 Office visit Sundeep Russell MACHINIST INSTRUCTOR 03/21/2013 Office visit Kaylynn Mendez MACHINIST INSTRUCTOR 03/20/2013 Office visit Terese Davidson MD 03/14/2013 Nurse visit Kaylynn Walker MACHINIST INSTRUCTOR 03/05/2013 Nurse visit Kaylynn Walker MACHINIST INSTRUCTOR 02/19/2013 Office visit Terese Davidson MD 02/16/2013 Nurse visit Kaylynn Walker MACHINIST INSTRUCTOR 02/09/2013 Office visit Sundeep Russell MACHINIST INSTRUCTOR 02/08/2013 Nurse visit Kaylynn Walker MACHINIST INSTRUCTOR 02/01/2013 Nurse visit Kaylynn Walker MACHINIST INSTRUCTOR 01/26/2013 Nurse visit Sabrina Mendez MUSKRAT TRAPPER 01/25/2013 Office visit Kaylynn Walker MACHINIST INSTRUCTOR 01/22/2013 Office visit Yoan Castaneda MD 01/18/2013 Nurse visit Kaylynn Walker MACHINIST INSTRUCTOR 01/11/2013 Nurse visit Kaylynn Walker MACHINIST INSTRUCTOR 01/05/2013 Nurse visit Kaylynn Walker MACHINIST INSTRUCTOR 12/29/2012 Office visit Kaylynn Walker MACHINIST INSTRUCTOR 11/27/2012 Office visit Kaylynn Walker MACHINIST INSTRUCTOR 11/08/2012 Office visit Odell Tierney MD 11/08/2012 Voided Odell Tierney MD 11/07/2012 Office visit Kaylynn Mendez MACHINIST INSTRUCTOR 10/31/2012 [facility] John Hoskins MD 10/31/2012 Office visit Kaylynn Walker MACHINIST INSTRUCTOR 10/19/2012 Office visit Genoveva Ayala MACHINIST INSTRUCTOR 10/10/2012 Office visit Kaylynn Mendez MACHINIST INSTRUCTOR 10/03/2012 Office visit Kaylynn Andrea MACHINIST INSTRUCTOR 09/26/2012 Office visit Kaylynn Mendez MACHINIST INSTRUCTOR 09/06/2012 Office visit Kaylynn Mendez MACHINIST INSTRUCTOR 09/06/2012 Office visit Odell Tierney MD 08/31/2012 Voided Kaylnyn Mendez MACHINIST INSTRUCTOR 07/28/2012 Office visit Kaylynn Mendez MACHINIST INSTRUCTOR 07/27/2012 Office visit David Ar DO 07/20/2012 [facility] David Joyner DO 07/13/2012 [facility] David Joyner DO 07/11/2012 Office visit Kaylynn Mendez MACHINIST INSTRUCTOR 06/27/2012 [facility] Odell Tierney MD 06/21/2012 Office visit David Joyner DO 06/21/2012 Office visit Odell Tierney MD 06/20/2012 Office visit Brittni Yanez MACHINIST INSTRUCTOR 06/06/2012 Office visit Odell Tierney MD 05/03/2012 Office visit Kaylynn Mendez MACHINIST INSTRUCTOR 04/28/2012 Office visit Brittni Yanez MACHINIST INSTRUCTOR 04/11/2012 Office visit Kaylynn Mendez MACHINIST INSTRUCTOR 04/06/2012 [facility] John Hoskins MD 03/30/2012 Office visit Kaylynn Mendez MACHINIST INSTRUCTOR 03/15/2012 Office visit Kaylynn Mendez MACHINIST INSTRUCTOR 03/15/2012 Office visit Odell Tierney MD 02/09/2012 Office visit Kaylynn Mendez MACHINIST INSTRUCTOR 12/23/2011 Office visit Kaylynn Mendez MACHINIST INSTRUCTOR 11/02/2011 Office visit Kaylynn Mendez MACHINIST INSTRUCTOR 10/14/2011 Office visit Kaylynn Andrea MACHINIST INSTRUCTOR 09/27/2011 Office visit Kaylynn Mendez MACHINIST INSTRUCTOR 08/19/2011 [facility] John Hoskins MD 08/18/2011 [facility] John Hoskins MD 08/18/2011 Office visit Kaylynn Mendez MACHINIST INSTRUCTOR 08/02/2011 Office visit Kaylynn Walker MACHINIST INSTRUCTOR 07/08/2011 Office visit Kaylynn Mendez MACHINIST INSTRUCTOR 07/05/2011 Office visit Odell Tierney MD 06/15/2011 Office visit Kaylynn Mendez MACHINIST INSTRUCTOR 05/14/2011 Office visit Kaylynn Mendez MACHINIST INSTRUCTOR 05/11/2011 Office visit Odell Tierney MD 04/28/2011 Office visit Kaylynn Mendez MACHINIST INSTRUCTOR 03/02/2011 Office visit Chadd Norris DO [...]
--- OUTSIDE RECORDS SUMMARY | 2018-05-09 17:24 | XMS REPORT ---
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 FOR 30 DAYS ProAir HFA 90 mcg/actuation inhalation HFA aerosol inhaler 11/22/2016 inhale 1 puff (90 mcg) by inhalation route every 6 hours as needed Myrbetriq 25 mg oral tablet extended release 24 hr 11/22/2016 TAKE 1 TABLET (25 MG) BY ORAL ROUTE ONCE DAILY SWALLOWING WHOLE WITH WATER. DO NOT CRUSH, CHEW AND/OR DIVIDE. FOR 30 DAYS Lasix 20 mg oral tablet 11/29/2016 TAKE 1 TABLET (20 MG) BY ORAL [...] TAKE 1 TABLET BY MOUTH TWICE DAILY MS Contin 30 mg oral tablet extended release 01/03/2017 02/02/2017 take 0.5 tablet by oral route every 12 hours for 30 days hydrocodone-acetaminophen 5-325 mg oral tablet 01/06/2017 01/16/2017 take 1 tablet by oral route BID x 10 days Name Start Date Expiration Date SIG [...] route once daily for 30 days Zithromax Z-Smion 250 mg oral tablet 01/25/2013 01/30/2013 take [...] 08/27/2014 use as directed for 99 days Gladstone 5-325 mg oral tablet 06/17/2014 06/27/2014 take [...] a day as needed for 30 days fykirxiy-pzdhivnmq-PF 3.5-10,000-1 mg/mL-unit/mL-% otic drops,suspension 201401/08/2015 instill 4 [...] crush, chew and/or divide. for 30 days montelukast 10 mg oral tablet 07/01/2016 12/28/2016 TAKE 1 TABLET BY MOUTH EVERY EVENING for 30 days hydrocortisone-acetic acid 1-2 % otic drops 07/07/2016 07/17/2016 instill 2 drops into right ear by otic route 3 times per day. Ok for similiar substitution or individual components. eraxpfyw-udpcxzigf-MA 3.5-10,000-1 mg/mL-unit/mL-% otic drops,suspension 201607/23/2016 instill 4 [...] route every 12 hours for 7 days Discontinued Name Start Date [...] each nostril by intranasal route once daily Fadiumet 50-1,000 mg oral tablet 04/28/2014 06/25/2014 TAKE [...] x2 days then 1 tablet daily x4 Problem List Description Status Onset Anemia Active [...] HC BMI BSA BMI Percentile O2 Sat(%) 01/03/2017 2:07:00 PM 112 mmHg 72 mmHg [...] Reviewed 04/28/2011 12:00 AM Decadron 1 mg [facility]#[id number] (Jr) Reviewed 04/28/2011 12:00 AM Depo-Medrol 80 mg [facility]#[id number]-Yjrwcgmf Reviewed 09/02/2015 12:00 AM Toradol 60 Mg ND#6661-7418-29 Reviewed 09/02/2015 12:00 AM Phenergan, Up to 50 Mg [facility] Medicaid Reviewed 09/16/2015 12:00 AM Toradol 60 Mg ND#4695-9969-34 Reviewed 09/16/2015 12:00 AM Phenergan Up to 50 mg [facility] Medicare Reviewed 05/11/2011 12:00 AM N BLOCK INJ OCCIPITAL Reviewed 05/11/2011 12:00 AM Kengretta Ji-[address]-20 ANNA Reviewed 11/13/2015 12:00 AM ASSAY OF [...] INJ SC/IM Reviewed 07/08/2011 12:00 AM Toradol,15mg [facility]#[id number], [place] Reviewed 07/08/2011 12:00 AM Phenergan 50 Mg Im [facility] 3119-8322-31 [place] Reviewed 01/21/2016 12:00 AM ECG MONIT/REPRT UP TO 48 HRS Returned 08/02/2011 12:00 AM THER/PROPH/DIAG INJ SC/IM Reviewed 08/02/2011 12:00 AM Decadron 1 mg [facility]#[id number] (Jr) Reviewed 08/02/2011 12:00 AM Depo-Medrol 80 mg [facility]#[id number]-Kkptscms Reviewed 03/05/2016 12:00 AM COMPLETE CBC W/AUTO DIFF WBC Reviewed 03/05/2016 12:00 AM STREP A ASSAY W/OPTIC Reviewed 03/05/2016 12:00 AM C-REACTIVE PROTEIN Reviewed 03/18/2016 12:00 AM [facility] MEDICARE - flu vaccine administration Reviewed [...] Reviewed 09/27/2011 12:00 AM Depo-Medrol 80 mg ND#[id number]-Rflwxudx Reviewed 09/27/2011 12:00 AM Depo-Medrol 40 mg [facility]#[id number] Reviewed 07/06/2016 12:00 AM CHEST X-RAY 4/> [...] Reviewed 12/23/2011 12:00 AM Decadron 1 mg [facility]#[id number] (Jr) Reviewed 12/23/2011 12:00 AM Depo-Medrol 80 mg [facility]#[id number]-Pxiyrtws Reviewed 11/02/2016 11:45 AM URINALYSIS AUTO W/O [...] X-RAY EXAM RIBS UNI 2 VIEWS Reviewed 02/09/2012 12:00 AM THER/PROPH/DIAG INJ SC/IM Reviewed 02/09/2012 12:00 AM Decadron 1 mg [facility]#[id number] (Jr) Reviewed 02/09/2012 12:00 AM Depo-Medrol 80 mg [facility]#[id number]-Domgqdbb Reviewed 03/15/2012 12:00 AM N BLOCK INJ OCCIPITAL Reviewed 03/15/2012 12:00 AM Kenalog Ax-[address]-20 ANNA Reviewed 04/11/2012 12:00 AM COMPLETE CBC W/AUTO DIFF WBC Reviewed 04/11/2012 12:00 AM COMPREHEN METABOLIC PANEL Reviewed 04/11/2012 12:00 AM LIPID PANEL Reviewed 04/11/2012 12:00 AM ASSAY THYROID STIM HORMONE Reviewed 04/11/2012 12:00 AM DESTRUCT PREMALG LES 2-14 Reviewed 06/20/2012 12:00 AM THER/PROPH/DIAG INJ SC/IM Reviewed 06/20/2012 12:00 AM Decadron, Per 1 Mg ND# [address]-09 Reviewed 06/20/2012 12:00 AM Depo-Medrol, Per 80 Mg ND#9610-9503-94 Reviewed 09/06/2012 12:00 AM N BLOCK INJ OCCIPITAL Reviewed 09/06/2012 12:00 AM Kenalog My-[address]-20 ANNA Reviewed 09/06/2012 12:00 AM X-RAY EXAM RIBS UNI 2 VIEWS Reviewed 09/26/2012 12:00 AM THER/PROPH/DIAG INJ SC/IM Reviewed 09/26/2012 12:00 AM Decadron, Per 1 Mg ND# [address]-79 Reviewed 09/26/2012 12:00 AM Depo-Medrol, Per 80 Mg ND#1863-1503-97 Reviewed 10/03/2012 12:00 AM URINALYSIS AUTO W/O SCOPE Reviewed 10/03/2012 12:00 AM THER/PROPH/DIAG INJ SC/IM Reviewed 10/03/2012 12:00 AM Toradol 60 Mg ND#4316-5505-90 Reviewed 10/03/2012 12:00 AM Phenergan, 25Mg ND#2808-0778-73 Reviewed 10/19/2012 12:00 AM N BLOCK INJ OCCIPITAL Reviewed 10/19/2012 12:00 AM Kenalog, Per 10 Mg ND#4939-6786-62 Reviewed 10/19/2012 12:00 AM Toradol 30 Mg ND#3599-5619-85 Reviewed 10/19/2012 12:00 AM THER/PROPH/DIAG INJ SC/IM Reviewed 10/31/2012 12:00 AM COMPLETE CBC W/AUTO DIFF WBC Reviewed 10/31/2012 12:00 AM COMPREHEN METABOLIC PANEL Reviewed 10/31/2012 12:00 AM LIPID PANEL Reviewed 10/31/2012 12:00 AM ELECTROCARDIOGRAM COMPLETE Reviewed 11/03/2012 12:[address] THORAX W/O & W/DYE Reviewed 11/08/2012 12:00 AM N BLOCK INJ OCCIPITAL Reviewed 11/08/2012 12:00 AM Kengretta Qa-[address]-20 ANNA Reviewed 11/27/2012 12:00 AM COMPLETE CBC [...] Mg [facility]# [address]-48 Reviewed 01/25/2013 12:00 AM Depo-Medrol, Per 80 Mg [facility]#9191-6261-09 Reviewed 01/26/2013 12:00 AM IMMUNOTHERAPY ONE INJECTION [...] Mg [facility]# [address]-31 Reviewed 05/16/2013 12:00 AM Depo-Medrol, Per 80 Mg [facility]#7299-0454-77 Reviewed 05/31/2013 12:00 AM IMMUNOTHERAPY INJECTIONS Reviewed 06/08/2013 12:00 AM IMMUNOTHERAPY INJECTIONS Reviewed 06/14/2013 12:00 AM IMMUNOTHERAPY INJECTIONS Reviewed 06/28/2013 12:00 AM IMMUNOTHERAPY INJECTIONS Reviewed 07/12/2013 12:00 AM X-RAY EXAM RIBS UNI 2 VIEWS Reviewed 07/18/2013 12:00 AM Toradol 60 Mg [facility]#1501-4978-14 Reviewed 07/18/2013 12:00 AM THER/PROPH/DIAG INJ SC/IM [...] Mg [facility]# [address]-51 Reviewed 09/14/2013 12:00 AM Depo-Medrol, Per 80 Mg [facility]#1136-1937-54 Reviewed 09/20/2013 12:00 AM IMMUNOTHERAPY INJECTIONS Reviewed [...] INJ OCCIPITAL Reviewed 12/10/2009 12:00 AM Kenalog Cx-[address]-20 ANNA Reviewed 12/16/2009 12:00 AM HIV-1ANTIBODY Reviewed 12/16/2009 12:00 AM COMPLETE CBC W/AUTO DIFF WBC Reviewed 12/16/2009 12:00 AM METABOLIC PANEL TOTAL CA Reviewed 12/16/2009 12:00 AM Type and screen Reviewed 12/16/2009 12:00 AM PROTHROMBIN TIME Reviewed 12/16/2009 12:00 AM THROMBOPLASTIN TIME PARTIAL Reviewed 03/18/2010 12:00 AM DRAIN/INJ JOINT/BURSA W/O US Reviewed 03/18/2010 12:00 AM Kengretta Ej-[address]-20 ANNA Reviewed 11/21/2013 12:00 AM RADEX HAND MINIMUM 3 VIEWS Reviewed 06/03/2010 12:00 AM INJ TRIGGER POINT 1/2 MUSCL Reviewed 06/03/2010 12:00 AM Kenalog per 10Mg -[facility]#[address]-72(Niall) Reviewed 12/05/2013 12:00 AM COMPLETE CBC W/AUTO [...] 07/23/2010 12:00 AM Kenalog per 10Mg Im-[facility]#[address]-38(Niall) Reviewed 2014 12:00 AM COMPLETE CBC W/AUTO [...] INJ OCCIPITAL Reviewed 10/01/2010 12:00 AM Kenalog Yf-[address]-20 ANNA Reviewed 07/25/2014 12:00 AM THER/PROPH/DIAG INJ [...] 141 Influenza 04/24/2014 sanofi pasteur PMC Fluzone [id number] Intramuscular Left Upper Arm 02/27/2014 01/15/2014 141 Influenza 02/13/2015 sanofi pasteur PMC Fluzone [id number] Intramuscular Left Deltoid 02/13/2015 01/03/2015 140 Tdap 06/06/2015 [employer] SKB BOOSTRIX [id number] Intramuscular Left Deltoid 06/06/2015 07/23/2014 115 Influenza 03/18/2016 sanofi pasteur PMC Fluzone [id number] Intramuscular Left Deltoid 03/17/2016 01/03/2015 141 History [...] Jul 09 2016 3:50PM Cervical spinal stenosis Fe2016 3:50PM Lumbago Jul 09 2016 3:25PM Stenosis, cervical spine b 2016 [...] 2:12PM Lumbar radiculopathy Jan 07 2017 2:55PM Payers Insurance Name Company Name Plan Name Plan Number Policy Number Policy Group Number Start Date Medicare RHC Medicare RHC [id number] N/A [facility] Plan [facility] Comm [id number] N/A Medicare Part A Medicare - Lab/Xray [id number] N/A Medicare Part B Medicare Of [place] [id number] Monday, February 28, 2000 [place] [facility] [employer] [facility] [place] [employer] [facility] [id number] Tuesday, November 10, 2009 Medicare Part A Medicare Part A [id number] N/A [place] [employer] Prog - RHC [place] [employer] Prog - RHC [id number] May [facility] Plan of [id number] Wednesday, May 30, 2012 History of Encounters Visit Date Visit Type Provider 01/07/2017 Office visit Riccardo Cardoza MD 01/03/2017 Office visit Heena Dumont MD 12/15/2016 Office visit Kaylynn Mendez ORNAMENT SETTER 12/02/2016 Office visit Heena Dumont MD 11/23/2016 Office visit Kaylynn Mendez ORNAMENT SETTER 11/17/2016 Office visit Kaylynn Mendez ORNAMENT SETTER 11/05/2016 Office visit Riccarod Cardoza MD 11/02/2016 Office visit Heena Dumont MD 10/06/2016 Office visit Kaylynn Mendez ORNAMENT SETTER 09/22/2016 Office visit Heena Dumont MD 09/09/2016 Office visit Kaylynn Mendez ORNAMENT SETTER 08/27/2016 Office visit Riccardo Cardoza MD 08/26/2016 Office visit Heena Dumont MD 07/09/2016 Office visit Riccardo Cardoza MD 07/06/2016 Office visit Heena Dumont MD 06/18/2016 Office visit Kaylynn Mendez ORNAMENT SETTER 06/07/2016 Office visit Sundeep Russell ORNAMENT SETTER 06/04/2016 Office visit Heena Dumont MD 05/13/2016 Office visit Heena Dumont MD 05/03/2016 Office visit Heena Dumont MD 04/26/2016 Office visit Kaylynn Mendez ORNAMENT SETTER 04/14/2016 Office visit Heena Dumont MD 04/13/2016 Office visit Kaylynn Mendez ORNAMENT SETTER 04/02/2016 Office visit Lena El ORNAMENT SETTER 04/02/2016 Office visit Heena Dumont MD 03/26/2016 Office visit Yesica Falcon ORNAMENT SETTER 03/17/2016 Office visit Heena Dumont MD 03/05/2016 Office visit Kaylynn Mendez ORNAMENT SETTER 02/16/2016 Office visit Heena Dumont MD 02/14/2016 Office visit Na Jones ORNAMENT SETTER 01/16/2016 Office visit Heena Dumont MD 12/16/2015 Office visit Heena Dumont MD 11/24/2015 Office visit Kaylynn Mendez ORNAMENT SETTER 11/18/2015 Office visit Heena Dumont MD 11/03/2015 Office visit Sundeep Russell ORNAMENT SETTER 10/20/2015 Office visit Kaylynn Walker ORNAMENT SETTER 09/23/2015 Office visit Kaylynn Walker ORNAMENT SETTER 09/16/[address] Pepe Figueroa MD 09/02/2015 Office visit Kaylynn Walker ORNAMENT SETTER 09/01/2015 Office visit Kaylynn Walker ORNAMENT SETTER 07/30/2015 Office visit Heena Dumont MD 07/15/2015 Office visit Kaylynn Walker ORNAMENT SETTER 07/04/2015 Office visit Heena Dumont MD 06/06/2015 Office visit Heena Dumont MD 06/06/2015 Office visit Kaylynn Walker ORNAMENT SETTER 06/02/2015 Office visit Kaylynn Walker ORNAMENT SETTER 05/26/2015 Office visit Kaylynn Walker ORNAMENT SETTER 05/20/2015 Office visit Kaylynn Mendez ORNAMENT SETTER 05/08/2015 Office visit Heena Dumont MD 05/06/2015 Office visit Kaylynn Mendez ORNAMENT SETTER 04/29/2015 Office visit Kaylynn Mendez ORNAMENT SETTER 03/27/2015 Voided Brittni Yanez ORNAMENT SETTER 03/21/2015 Office visit Heena Dumont MD 03/12/2015 Office visit Kaylynn Mendez ORNAMENT SETTER 02/26/2015 Office visit Brittni Yanez ORNAMENT SETTER 02/13/2015 Office visit Heena Dumont MD 01/15/2015 Office visit Brittni Yanez ORNAMENT SETTER 01/13/2015 Office visit Heena Dumont MD 01/08/[address] Carol Fowler MD 01/01/2015 Office visit Brittni Yanez ORNAMENT SETTER 12/13/2014 Office visit Heena Dumont MD 11/27/2014 Office visit Kaylynn Mendez ORNAMENT SETTER 11/14/2014 Office visit Heena Dumont MD 10/18/2014 Office visit Heena Dumont MD 10/17/2014 [facility] John Hoskins MD 10/09/2014 Office visit Heena Dumont MD 09/25/2014 Office visit Heena Dumont MD 09/17/2014 Office visit Kaylynn Mendez ORNAMENT SETTER 09/04/2014 Office visit Heena Dumont MD 08/28/2014 Office visit Kaylynn Mendez ORNAMENT SETTER 08/23/2014 Hospital John Hoskins MD 08/01/2014 Office visit Kaylynn Mendez ORNAMENT SETTER 07/29/2014 Office visit Heena Dumont MD 07/25/2014 Nurse visit Heena Dumont MD 07/17/2014 Office visit Kaylynn Mendez ORNAMENT SETTER 07/11/2014 Office visit Heena Dumont MD 07/01/2014 Office visit Heena Dumont MD 06/25/2014 Office visit Kaylynn Mendez ORNAMENT SETTER 06/12/2014 Office visit Kaylynn Mnedez ORNAMENT SETTER 06/06/2014 Office visit Kaylynn Mendez ORNAMENT SETTER 05/27/2014 Office visit Heena Dumont MD 04/20/2014 Office visit Yesica Falcon ORNAMENT SETTER 03/29/2014 Office visit Na Jones ORNAMENT SETTER 03/15/2014 Office visit Heena Dumont MD 2014 Office visit Heena Dumont MD 2014 [facility] Eliseo Hoskins MD 02/27/2014 Nurse visit Heena Dumont MD 02/13/2014 Office visit Lena El ORNAMENT SETTER 02/07/2014 Office visit Heena Dumont MD 02/03/2014 Office visit Na Jones ORNAMENT SETTER 01/30/2014 Office visit Kaylynn Mendez ORNAMENT SETTER 01/24/2014 Office visit Sundeep Russell ORNAMENT SETTER 01/16/2014 Office visit Kaylynn Mendez ORNAMENT SETTER 01/10/2014 Nurse visit Kaylynn Mendez ORNAMENT SETTER 01/08/2014 Office visit Kaylynn Walker ORNAMENT SETTER 12/05/2013 Office visit Kaylynn Walker ORNAMENT SETTER 11/21/2013 Office visit Kaylynn Mendez ORNAMENT SETTER 10/23/2013 Office visit Brittni Yanez ORNAMENT SETTER 10/17/2013 Nurse visit Heena Dumont MD 10/12/2013 Office visit Kaylynn Mendez ORNAMENT SETTER 10/02/2013 Office visit Heena Dumont MD 09/20/2013 Nurse visit Kaylynn Mendez ORNAMENT SETTER 09/20/2013 Voided Heena Dumont MD 09/14/2013 Office visit Kaylynn Walker ORNAMENT SETTER 09/05/2013 Office visit Sundeep Russell ORNAMENT SETTER 09/04/2013 Nurse visit Kaylynn Walker ORNAMENT SETTER 08/31/2013 Office visit Kaylynn Walker ORNAMENT SETTER 08/23/2013 Office visit Heena Dumont MD 08/10/2013 Office visit Kaylynn Walker ORNAMENT SETTER 07/25/2013 Office visit Kaylynn Walker ORNAMENT SETTER 07/18/2013 Office visit Kaylynn Walker ORNAMENT SETTER 07/12/2013 Office visit Kaylynn Walker ORNAMENT SETTER 06/28/2013 Nurse visit Kaylynn Walker ORNAMENT SETTER 06/14/2013 Nurse visit Kaylynn Walker ORNAMENT SETTER 06/08/2013 Nurse visit Kaylynn Walker ORNAMENT SETTER 05/31/2013 Nurse visit Chadd Norris DO 05/18/2013 Office visit Terese Davidson MD 05/16/2013 Office visit Kaylynn Mendez ORNAMENT SETTER 05/09/2013 Office visit Kaylynn Walker ORNAMENT SETTER 04/29/2013 [facility] John Hoskins MD 04/25/2013 Nurse visit Kaylynn Walker ORNAMENT SETTER 04/17/2013 Office visit Kaylynn Walker ORNAMENT SETTER 04/03/2013 Nurse visit Kaylynn Mendez ORNAMENT SETTER 04/03/2013 Office visit Terese Davidson MD 03/28/2013 Office visit Sundeep Russell ORNAMENT SETTER 03/21/2013 Office visit Kaylynn Mendez ORNAMENT SETTER 03/20/2013 Office visit Terese Davidson MD 03/14/2013 Nurse visit Kaylynn Mendez ORNAMENT SETTER 03/05/2013 Nurse visit Kaylynn Mendez ORNAMENT SETTER 02/19/2013 Office visit Terese Davidson MD 02/16/2013 Nurse visit Kaylynn Mendez ORNAMENT SETTER 02/09/2013 Office visit Sundeep Russell ORNAMENT SETTER 02/08/2013 Nurse visit Kaylynn Walker ORNAMENT SETTER 02/01/2013 Nurse visit Kaylynn Mendez ORNAMENT SETTER 01/26/2013 Nurse visit Sabrina Mendez CASTING MACHINE SET UP OPERATOR 01/25/2013 Office visit Kaylynn Mendez ORNAMENT SETTER 01/22/2013 Office visit Yoan Castaneda MD 01/18/2013 Nurse visit Kaylynn Walker ORNAMENT SETTER 01/11/2013 Nurse visit Kaylynn Walker ORNAMENT SETTER 01/05/2013 Nurse visit Kaylynn Walker ORNAMENT SETTER 12/29/2012 Office visit Kaylynn Mendez ORNAMENT SETTER 11/27/2012 Office visit Kaylynn Mendez ORNAMENT SETTER 11/08/2012 Office visit Odell Tierney MD 11/08/2012 Voided Odell Tierney MD 11/07/2012 Office visit Kaylynn Mendez ORNAMENT SETTER 10/31/2012 [facility] John Hoskins MD 10/31/2012 Office visit Kaylynn Mendez ORNAMENT SETTER 10/19/2012 Office visit Genoveva Ayala ORNAMENT SETTER 10/10/2012 Office visit Kaylynn Mendez ORNAMENT SETTER 10/03/2012 Office visit Kaylynn Walker ORNAMENT SETTER 09/26/2012 Office visit Kaylynn Walker ORNAMENT SETTER 09/06/2012 Office visit Kaylynn Mendez ORNAMENT SETTER 09/06/2012 Office visit Odell Tierney MD 08/31/2012 Voided Kaylynn Mendez ORNAMENT SETTER 07/28/2012 Office visit Kaylynn Mendez ORNAMENT SETTER 07/27/2012 Office visit David Joynre DO 07/20/2012 [facility] David Joyner DO 07/13/2012 [facility] David Joyner DO 07/11/2012 Office visit Kaylynn Mendez ORNAMENT SETTER 06/27/2012 Hospital Odell Tierney MD 06/21/2012 Office visit David Joyner DO 06/21/2012 Office visit Odell Tierney MD 06/20/2012 Office visit Brittni Yanez ORNAMENT SETTER 06/06/2012 Office visit Odell Tierney MD 05/03/2012 Office visit Kaylynn Mendez ORNAMENT SETTER 04/28/2012 Office visit Brittni aYnez ORNAMENT SETTER 04/11/2012 Office visit Kaylynn Mendez ORNAMENT SETTER 04/06/2012 [facility] John Hoskins MD 03/30/2012 Office visit Kaylynn Mendez ORNAMENT SETTER 03/15/2012 Office visit Kaylynn Mendez ORNAMENT SETTER 03/15/2012 Office visit Odell Tierney MD 02/09/2012 Office visit Kaylynn Mendez ORNAMENT SETTER 12/23/2011 Office visit Kaylynn Mendez ORNAMENT SETTER 11/02/2011 Office visit Kaylynn Mendez ORNAMENT SETTER 10/14/2011 Office visit Kaylynn Mendez ORNAMENT SETTER 09/27/2011 Office visit Kaylynn Mendez ORNAMENT SETTER 08/19/2011 Hospital John Hoskins MD 08/18/2011 [facility] John Hoskins MD 08/18/2011 Office visit Kaylynn Andrea ORNAMENT SETTER 08/02/2011 Office visit Kaylynn Andrea ORNAMENT SETTER 07/08/2011 Office visit Kaylynn Mendez ORNAMENT SETTER 07/05/2011 Office visit Odell Tierney MD 06/15/2011 Office visit Kaylynn Mendez ORNAMENT SETTER 05/14/2011 Office visit Kaylynn Mendez ORNAMENT SETTER 05/11/2011 Office visit Odell Tierney MD 04/28/2011 Office visit Kaylynn Mendez ORNAMENT SETTER 03/02/2011 Office visit Chadd Norris DO 02/17/2011 [...]
--- OUTSIDE RECORDS SUMMARY | 2018-05-09 17:28 | XMS REPORT ---
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 OneTonadja Mandel Lancets 33 gauge miscellaneous misc 01/21/2016 use as directed One[employer]ja aMgaña miscellaneous strip 01/21/2016 07/19/2016 Test 2x daily, Dx: E11.9 TEST STRIPS cetirizine 10 mg oral tablet 01/26/2016 TAKE 1 TABLET BY MOUTH EVERY DAY nortriptyline 10 mg oral capsule 01/28/2016 TAKE 1 CAPSULE BY ORAL ROUTE ONCE A DAY (AT BEDTIME) FOR 30 DAYS hydrocodone-acetaminophen 10-325 mg oral tablet 02/03/2016 2016 take 1 tablet by oral route every 8 hours for 30 days clobetasol-emollient 0.05 % topical foam 02/09/2016 APPLY BY EXTERNAL ROUTE ONCE DAILY Name Start Date Expiration Date SIG [...] 08/27/2014 use as directed for 99 days Chester 5-325 mg oral tablet 06/17/2014 06/27/2014 take [...] a day as needed for 30 days hsspqdiv-[id number]-KQ 3.5-10,000-1 mg/mL-unit/mL-% otic drops,suspension 201401/08/2015 instill 4 [...] 30 mL in 24 hours Mildred Rogers 100 mg oral capsule 04/30/2013 05/18/2013 take [...] HC BMI BSA BMI Percentile O2 Sat(%) 02/16/2016 2:34:00 PM 108 mmHg 64 mmHg [...] Reviewed 04/28/2011 12:00 AM Decadron 1 mg ND#[id number] (Jr) Reviewed 04/28/2011 12:00 AM Depo-Medrol 80 mg ND#[id number]-Wechuyhq Reviewed 09/02/2015 12:00 AM Toradol 60 Mg [facility]#3157-9209-40 Reviewed 09/02/2015 12:00 AM Phenergan, Up to 50 Mg RHC Medicaid Reviewed 09/16/2015 12:00 AM Toradol 60 Mg [facility]#4215-6732-50 Reviewed 09/16/2015 12:00 AM Phenergan Up to 50 mg RHC Medicare Reviewed 05/11/2011 12:00 AM N BLOCK INJ OCCIPITAL Reviewed 05/11/2011 12:00 AM Kenalog Wl-[id number] ANNA Reviewed 11/13/2015 12:00 AM ASSAY OF [...] 12:00 AM Toradol,15mg [facility]#[id number], Brunildaer Reviewed 07/08/2011 12:00 AM Phenergan 50 Mg Im [facility] 9010-5723-66 [facility] Reviewed 01/21/2016 12:00 AM ECG MONIT/REPRT UP TO 48 HRS Returned 08/02/2011 12:00 AM THER/PROPH/DIAG INJ SC/IM Reviewed 08/02/2011 12:00 AM Decadron 1 mg [facility]#[id number] (Jr) Reviewed 08/02/2011 12:00 AM Depo-Medrol 80 mg [facility]#[id number]-Hjkapgxb Reviewed 09/27/2011 12:00 AM THER/PROPH/DIAG INJ SC/IM Reviewed 09/27/2011 12:00 AM Depo-Medrol 80 mg [facility]#[id number]-Zailmvng Reviewed 10/14/2011 12:00 AM X-RAY EXAM OF ABDOMEN Returned 10/14/2011 12:00 AM URINALYSIS AUTO W/O SCOPE Reviewed 12/23/2011 12:00 AM THER/PROPH/DIAG INJ SC/IM Reviewed 12/23/2011 12:00 AM Decadron 1 mg NDC#[id number] (Jr) Reviewed 12/23/2011 12:00 AM Depo-Medrol 80 mg NDC#[id number]-Ilhraiiy Reviewed 02/09/2012 12:00 AM THER/PROPH/DIAG INJ SC/IM Reviewed 02/09/2012 12:00 AM Decadron 1 mg NDC#[id number] (Jr) Reviewed 02/09/2012 12:00 AM Depo-Medrol 80 mg NDC#[id number]-Vyygktaw Reviewed 03/15/2012 12:00 AM N BLOCK INJ OCCIPITAL Reviewed 03/15/2012 12:00 AM Kenalog Vc-[id number] ANNA Reviewed 04/11/2012 12:00 AM COMPLETE CBC W/AUTO DIFF WBC Returned 04/11/2012 12:00 AM COMPREHEN METABOLIC PANEL Returned 04/11/2012 12:00 AM LIPID PANEL Returned 04/11/2012 12:00 AM ASSAY THYROID STIM HORMONE Returned 06/20/2012 12:00 AM THER/PROPH/DIAG INJ SC/IM Reviewed 06/20/2012 12:00 AM Decadron, Per 1 Mg NDC# [address]-21 Reviewed 06/20/2012 12:00 AM Depo-Medrol, Per 80 Mg NDC#6793-8607-05 Reviewed 09/06/2012 12:00 AM N BLOCK INJ OCCIPITAL Reviewed 09/06/2012 12:00 AM Kenalog Dy-[id number] ANNA Reviewed 09/06/2012 12:00 AM X-RAY EXAM RIBS UNI 2 VIEWS Returned 09/26/2012 12:00 AM THER/PROPH/DIAG INJ SC/IM Reviewed 09/26/2012 12:00 AM Decadron, Per 1 Mg NDC# [address]-92 Reviewed 09/26/2012 12:00 AM Depo-Medrol, Per 80 Mg NDC#8905-3549-25 Reviewed 10/03/2012 12:00 AM URINALYSIS AUTO W/O SCOPE Reviewed 10/03/2012 12:00 AM THER/PROPH/DIAG INJ SC/IM Reviewed 10/03/2012 12:00 AM Toradol 60 Mg [facility]#3906-4395-80 Reviewed 10/03/2012 12:00 AM Phenergan, 25Mg ND#1253-1423-83 Reviewed 10/19/2012 12:00 AM N BLOCK INJ OCCIPITAL Reviewed 10/19/2012 12:00 AM Kenalog, Per 10 Mg [facility]#6387-2580-91 Reviewed 10/19/2012 12:00 AM Toradol 30 Mg ND#0409-2585-25 Reviewed 10/19/2012 12:00 AM THER/PROPH/DIAG INJ SC/IM Reviewed 10/31/2012 12:00 AM COMPLETE CBC W/AUTO DIFF WBC Returned 10/31/2012 12:00 AM COMPREHEN METABOLIC PANEL Returned 10/31/2012 12:00 AM LIPID PANEL Returned 11/03/2012 12:[address] THORAX W/O & W/DYE Returned 11/08/2012 12:00 AM N BLOCK INJ OCCIPITAL Reviewed 11/08/2012 12:00 AM Kenalog Vu-[id number] ANNA Reviewed 11/27/2012 12:00 AM COMPLETE CBC [...] Per 1 Mg [facility]# [address]-54 Reviewed 01/25/2013 12:00 AM Depo-Medrol, Per 80 Mg NDC#8211-1330-71 Reviewed 01/26/2013 12:00 AM IMMUNOTHERAPY INJECTIONS Returned [...] Per 1 Mg [facility]# [address]-16 Reviewed 05/16/2013 12:00 AM Depo-Medrol, Per 80 Mg [facility]#5642-3311-57 Reviewed 05/31/2013 12:00 AM IMMUNOTHERAPY INJECTIONS Reviewed 06/08/2013 12:00 AM IMMUNOTHERAPY INJECTIONS Reviewed 06/14/2013 12:00 AM IMMUNOTHERAPY INJECTIONS Reviewed 06/28/2013 12:00 AM IMMUNOTHERAPY INJECTIONS Reviewed 07/12/2013 12:00 AM X-RAY EXAM RIBS UNI 2 VIEWS Returned 07/18/2013 12:00 AM Toradol 60 Mg [facility]#1930[address]-43 Reviewed 07/18/2013 12:00 AM THER/PROPH/DIAG INJ SC/IM Reviewed 08/23/2013 12:00 AM COMPLETE CBC W/AUTO DIFF WBC Reviewed 08/23/2013 12:00 AM COMPREHEN METABOLIC PANEL Reviewed 08/23/2013 12:00 AM LIPID PANEL Reviewed 08/31/2013 12:00 AM X-RAY EXAM OF LOWER LEG Returned 09/04/2013 12:00 AM IMMUNOTHERAPY INJECTIONS Reviewed 09/14/2013 12:00 AM THER/PROPH/DIAG INJ SC/IM Reviewed 09/14/2013 12:00 AM Decadron, Per 1 Mg [facility]# [address]-95 Reviewed 09/14/2013 12:00 AM Depo-Medrol, Per 80 Mg [facility]#8105-9022-48 Reviewed 09/20/2013 12:00 AM IMMUNOTHERAPY INJECTIONS Reviewed [...] INJ OCCIPITAL Reviewed 12/10/2009 12:00 AM Kenalog Ja-[address]-20 ANNA Reviewed 12/16/2009 12:00 AM HIV-1ANTIBODY Reviewed 12/16/2009 12:00 AM COMPLETE CBC W/AUTO DIFF WBC Reviewed 12/16/2009 12:00 AM METABOLIC PANEL TOTAL CA Reviewed 12/16/2009 12:00 AM Type and screen Reviewed 12/16/2009 12:00 AM PROTHROMBIN TIME Reviewed 12/16/2009 12:00 AM THROMBOPLASTIN TIME PARTIAL Reviewed 03/18/2010 12:00 AM DRAIN/INJ JOINT/BURSA W/O US Reviewed 03/18/2010 12:00 AM Kenalog Ll-[id number] ANNA Reviewed 11/21/2013 12:00 AM RADEX HAND MINIMUM 3 VIEWS Returned 06/03/2010 12:00 AM INJ TRIGGER POINT 1/2 MUSCL Reviewed 06/03/2010 12:00 AM Kenalog per 10Mg -[facility]#[address]-83(Niall) Reviewed 12/05/2013 12:00 AM COMPLETE CBC W/AUTO [...] Returned 07/23/2010 12:00 AM INJ TRIGGER POINT 05/31 MUSCL Reviewed 07/23/2010 12:00 AM Kenalog per 10Mg Im-Ndc#[address]-92(Niall) Reviewed 2014 12:00 AM COMPLETE CBC W/AUTO [...] INJ OCCIPITAL Reviewed 10/01/2010 12:00 AM Kenalog Ie-[address]-20 ANNA Reviewed 07/25/2014 12:00 AM THER/PROPH/DIAG INJ [...] 0.60 mg/dLCALCIUM 10.90 mg/ dLeGFR >60 mL/min/1.73 [id number] 45.0 U/L 08/31/2013 10:54 AM GLUCOSE 255.0 [...] 0.40 mg/ dLCALCIUM 10.60 mg/dLeGFR >60 mL/min/1.73 [id number] 369.0 mg/ dLCHOLESTEROL 153.0 mg/dLHDL 26.0 mg/dLLDL [...] BILI 0.30 mg/dLCALCIUM 10.0 mg/dLeGFR >60 mL/min/1.73 z9CHERN YELLOW APPEARANCE CLEAR SPEC GRAV 1.010 pH [...] 0.40 mg/dLCALCIUM 10.50 mg/dLeGFR >60 mL/min/ 1.73m History Of Immunizations Name Date Admin Mfg Name Mfg Code Trade Name Lot# Route Inj Vis Given Vis Pub CVX Influenza 03/30/2011 Not Entered NE Not Entered Not Entered Not Entered 03/31/2011 05/30/2016 141 Influenza 04/24/2014 sanofi pasteur PMC Fluzone [id number] Intramuscular Left Upper Arm 02/27/2014 01/15/2014 141 Influenza 02/13/2015 sanofi pasteur PMC Fluzone [id number] Intramuscular Left Deltoid 02/13/2015 01/03/2015 140 Tdap [...] due to adhesives Feb 14 2016 11:33AM Payers Insurance Name Company Name Plan Name Plan Number Policy Number Policy Group Number Start Date Medicare Part A Medicare RHC [id number] N/A [facility] RHC Comm [id number] N/A Medicare Part A Medicare - Lab/Xray [id number] N/A Medicare Part B Medicare Of [place] [id number] Monday, February 28, 2000 [place] [employer] [place] [employer] [place] [id number] Tuesday, November 10, 2009 Medicare Part A Medicare Part A [id number] N/A [place] [employer] - RHC [place] [employer] - RHC [id number] [facility] Comm Plan of [id number] Wednesday, May 30, 2012 History of Encounters Visit Date Visit Type Provider 02/16/2016 Office visit Heena Dumont MD 02/14/2016 Office visit Na Jones SPECIALTY MOLDER 01/16/2016 Office visit Heena Dumont MD 12/16/2015 Office visit Heena Dumont MD 11/24/2015 Office visit Kaylynn Mendez SPECIALTY MOLDER 11/18/2015 Office visit Heena Dumont MD 11/03/2015 Office visit Sundeep Russell SPECIALTY MOLDER 10/20/2015 Office visit Kaylynn Mendez SPECIALTY MOLDER 09/23/2015 Office visit Kaylynn Mendez SPECIALTY MOLDER 09/16/[address] Pepe Figueroa MD 09/02/2015 Office visit Kaylynn Mendez SPECIALTY MOLDER 09/01/2015 Office visit Kaylynn Mendez SPECIALTY MOLDER 07/30/2015 Office visit Heena Dumont MD 07/15/2015 Office visit Kaylynn Mendez SPECIALTY MOLDER 07/04/2015 Office visit Heena Dumont MD 06/06/2015 Office visit Heena Dumont MD 06/06/2015 Office visit Kaylynn Mendez SPECIALTY MOLDER 06/02/2015 Office visit Kaylynn Mendez SPECIALTY MOLDER 05/26/2015 Office visit Kaylynn Mendez SPECIALTY MOLDER 05/20/2015 Office visit Kaylynn Mendez SPECIALTY MOLDER 05/08/2015 Office visit Heena Dumont MD 05/06/2015 Office visit Kaylynn Mendez SPECIALTY MOLDER 04/29/2015 Office visit Kaylynn Mendez SPECIALTY MOLDER 03/27/2015 Voided Brittni Yanez SPECIALTY MOLDER 03/21/2015 Office visit Heena Dumont MD 03/12/2015 Office visit Kaylynn Mendez SPECIALTY MOLDER 02/26/2015 Office visit Brittni Yanez SPECIALTY MOLDER 02/13/2015 Office visit Heena Dumont MD 01/15/2015 Office visit Brittni Yanez SPECIALTY MOLDER 01/13/2015 Office visit Heena Dumont MD 01/08/[address] Carol Fowler MD 01/01/2015 Office visit Brittni Yanez SPECIALTY MOLDER 12/13/2014 Office visit Heena Dumont MD 11/27/2014 Office visit Kaylynn Mendez SPECIALTY MOLDER 11/14/2014 Office visit Heena Dumont MD 10/18/2014 Office visit Heena Dumont MD 10/17/2014 [facility] John Hoskins MD 10/09/2014 Office visit Heena Dumont MD 09/25/2014 Office visit Heena Dumont MD 09/17/2014 Office visit Kaylynn Mendez SPECIALTY MOLDER 09/04/2014 Office visit Heena Dumont MD 08/28/2014 Office visit Kaylynn Mendez SPECIALTY MOLDER 08/23/2014 [facility] Hoskins MD 08/01/2014 Office visit Kaylynn Mendez SPECIALTY MOLDER 07/29/2014 Office visit Heena Dumont MD 07/25/2014 Nurse visit Heena Dumont MD 07/17/2014 Office visit Kaylynn Mendez SPECIALTY MOLDER 07/11/2014 Office visit Heena Dumont MD 07/01/2014 Office visit Heena Dumont MD 06/25/2014 Office visit Kaylynn Mendez SPECIALTY MOLDER 06/12/2014 Office visit Kaylynn Mendez SPECIALTY MOLDER 06/06/2014 Office visit Kaylynn Mendez SPECIALTY MOLDER 05/27/2014 Office visit Heena Dumont MD 04/20/2014 Office visit Yesica Falcon SPECIALTY MOLDER 03/29/2014 Office visit Na Jones SPECIALTY MOLDER 03/15/2014 Office visit Heena Dumont MD 2014 Office visit Heena Dumont MD 2014 [facility] Hos[facility] MD 02/27/2014 Nurse visit Heena Dumont MD 02/13/2014 Office visit Lena El SPECIALTY MOLDER 02/07/2014 Office visit Heena Dumont MD 02/03/2014 Office visit Na Jones SPECIALTY MOLDER 01/30/2014 Office visit Kaylynn Mendez SPECIALTY MOLDER 01/24/2014 Office visit Sundeep Russell SPECIALTY MOLDER 01/16/2014 Office visit Kaylynn Walker SPECIALTY MOLDER 01/10/2014 Nurse visit Kaylynn Walker SPECIALTY MOLDER 01/08/2014 Office visit Kaylynn Walker SPECIALTY MOLDER 12/05/2013 Office visit Kaylynn Walker SPECIALTY MOLDER 11/21/2013 Office visit Kaylynn Walker SPECIALTY MOLDER 10/23/2013 Office visit Brittni Yanez SPECIALTY MOLDER 10/17/2013 Nurse visit Heena Dumont MD 10/12/2013 Office visit Kaylynn Mendez SPECIALTY MOLDER 10/02/2013 Office visit Heena Dumont MD 09/20/2013 Nurse visit Kaylynn Mendez SPECIALTY MOLDER 09/20/2013 Voided Heena Dumont MD 09/14/2013 Office visit Kaylynn Mendez SPECIALTY MOLDER 09/05/2013 Office visit Sundeep Russell SPECIALTY MOLDER 09/04/2013 Nurse visit Kaylynn Walker SPECIALTY MOLDER 08/31/2013 Office visit Kaylynn Walker SPECIALTY MOLDER 08/23/2013 Office visit Heena Dumont MD 08/10/2013 Office visit Kaylynn Mendez SPECIALTY MOLDER 07/25/2013 Office visit Kaylynn Walker SPECIALTY MOLDER 07/18/2013 Office visit Kaylynn Walker SPECIALTY MOLDER 07/12/2013 Office visit Kaylynn Walker SPECIALTY MOLDER 06/28/2013 Nurse visit Kaylynn Walker SPECIALTY MOLDER 06/14/2013 Nurse visit Kaylynn Mendez SPECIALTY MOLDER 06/08/2013 Nurse visit Kaylynn Mendez SPECIALTY MOLDER 05/31/2013 Nurse visit Chadd Norris DO 05/18/2013 Office visit Terese Davidson MD 05/16/2013 Office visit Kaylynn Mendez SPECIALTY MOLDER 05/09/2013 Office visit Kaylynn Mendez SPECIALTY MOLDER 04/29/2013 [facility] John Hoskins MD 04/25/2013 Nurse visit Kaylynn Walker SPECIALTY MOLDER 04/17/2013 Office visit Kaylynn Walker SPECIALTY MOLDER 04/03/2013 Nurse visit Kaylynn Walker SPECIALTY MOLDER 04/03/2013 Office visit Terese Davidson MD 03/28/2013 Office visit Sundeep Russell SPECIALTY MOLDER 03/21/2013 Office visit Kaylynn Mendez SPECIALTY MOLDER 03/20/2013 Office visit Terese Davidson MD 03/14/2013 Nurse visit Kaylynn Mendez SPECIALTY MOLDER 03/05/2013 Nurse visit Kaylynn Mendez SPECIALTY MOLDER 02/19/2013 Office visit Terese Davidson MD 02/16/2013 Nurse visit Kaylynn Mendez SPECIALTY MOLDER 02/09/2013 Office visit Sundeep Russell SPECIALTY MOLDER 02/08/2013 Nurse visit Kaylynn Mendez SPECIALTY MOLDER 02/01/2013 Nurse visit Kaylynn Walker SPECIALTY MOLDER 01/26/2013 Nurse visit Sabrina Andrea RETANNER 01/25/2013 Office visit Kaylynn Walker SPECIALTY MOLDER 01/22/2013 Office visit Yoan Castaneda MD 01/18/2013 Nurse visit Kaylynn Walker SPECIALTY MOLDER 01/11/2013 Nurse visit Kaylynn Walker SPECIALTY MOLDER 01/05/2013 Nurse visit Kaylynn Walker SPECIALTY MOLDER 12/29/2012 Office visit Kaylynn Walker SPECIALTY MOLDER 11/27/2012 Office visit Kaylynn Walker SPECIALTY MOLDER 11/08/2012 Office visit Odell Tierney MD 11/08/2012 Voided Odell Tierney MD 11/07/2012 Office visit Kaylynn Mendez SPECIALTY MOLDER 10/31/2012 [facility] John Hoskins MD 10/31/2012 Office visit Kaylynn Walker SPECIALTY MOLDER 10/19/2012 Office visit Genoveva Ayala SPECIALTY MOLDER 10/10/2012 Office visit Kaylynn Walker SPECIALTY MOLDER 10/03/2012 Office visit Kaylynn Walker SPECIALTY MOLDER 09/26/2012 Office visit Kaylynn Mendez SPECIALTY MOLDER 09/06/2012 Office visit Kaylynn Mendez SPECIALTY MOLDER 09/06/2012 Office visit Odell Tierney MD 08/31/2012 Voided Kaylynn Mendez SPECIALTY MOLDER 07/28/2012 Office visit Kaylynn Mendez SPECIALTY MOLDER 07/27/2012 Office visit David Joyner DO 07/20/2012 [facility] David Joyner DO 07/13/2012 [facility] Office visit Kaylynn Mendez SPECIALTY MOLDER 06/27/2012 [facility] Odell Tierney MD 06/21/2012 Office visit David Joyner DO 06/21/2012 Office visit Odell Tierney MD 06/20/2012 Office visit Brittni Yanez SPECIALTY MOLDER 06/06/2012 Office visit Odell Tierney MD 05/03/2012 Office visit Kaylynn Mendez SPECIALTY MOLDER 04/28/2012 Office visit Brittni Yanez SPECIALTY MOLDER 04/11/2012 Office visit Kaylynn Mendez SPECIALTY MOLDER 04/06/2012 [facility] John Hoskins MD 03/30/2012 Office visit Kaylynn Walker SPECIALTY MOLDER 03/15/2012 Office visit Kaylynn Mednez SPECIALTY MOLDER 03/15/2012 Office visit Odell Tierney MD 02/09/2012 Office visit Kaylynn Mendez SPECIALTY MOLDER 12/23/2011 Office visit Kaylynn Walker SPECIALTY MOLDER 11/02/2011 Office visit Kaylynn Walker SPECIALTY MOLDER 10/14/2011 Office visit Kaylynn Walker SPECIALTY MOLDER 09/27/2011 Office visit Kaylynn Mendez SPECIALTY MOLDER 08/19/2011 [facility] Hos[facility] MD 08/18/2011 [facility] Hoskins MD 08/18/2011 Office visit Kaylynn Mendez SPECIALTY MOLDER 08/02/2011 Office visit Kaylynn Mendez SPECIALTY MOLDER 07/08/2011 Office visit Kaylynn Mendez SPECIALTY MOLDER 07/05/2011 Office visit Odell Tierney MD 06/15/2011 Office visit Kaylynn Mendez SPECIALTY MOLDER 05/14/2011 Office visit Kaylynn Mendez SPECIALTY MOLDER 05/11/2011 Office visit Odell Tierney MD 04/28/2011 Office visit Kaylynn Mendez SPECIALTY MOLDER 03/02/2011 Office visit Chadd Norris DO [...]
--- OUTSIDE RECORDS SUMMARY | 2018-05-09 17:33 | XMS REPORT ---
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 [employer] Lancets 33 gauge miscellaneous misc 01/21/2016 use as directed [facility] miscellaneous strip 01/21/2016 07/19/2016 Test 2x daily, [...] 08/27/2014 use as directed for 99 days [place] 5-325 mg oral tablet 06/17/2014 06/27/2014 [...] a day as needed for 30 days iokodrfn-ctgseqvwe-YF 3.5-10,000-1 mg/mL-unit/mL-% otic drops,suspension 201401/08/2015 instill 4 [...] Reviewed 04/28/2011 12:00 AM Decadron 1 mg ND#[id number] (Jr) Reviewed 04/28/2011 12:00 AM Depo-Medrol 80 mg NDC#[id number]-Nvrpfblk Reviewed 09/02/2015 12:00 AM Toradol 60 Mg NDC#0492-8813-48 Reviewed 09/02/2015 12:00 AM Phenergan, Up to 50 Mg RHC Medicaid Reviewed 09/16/2015 12:00 AM Toradol 60 Mg NDC#8978-6696-30 Reviewed 09/16/2015 12:00 AM Phenergan Up to 50 mg RHC Medicare Reviewed 05/11/2011 12:00 AM N BLOCK INJ OCCIPITAL Reviewed 05/11/2011 12:00 AM Kenalog Xv-[address]-20 ANNA Reviewed 11/13/2015 12:00 AM ASSAY OF [...] 07/08/2011 12:00 AM Toradol,15mg [facility]#[id number], [place] Reviewed 07/08/2011 12:00 AM Phenergan 50 Mg Im [facility] 4961-7235-45 FP [place] Reviewed 01/21/2016 12:00 AM ECG MONIT/REPRT UP TO 48 HRS Returned 08/02/2011 12:00 AM THER/PROPH/DIAG INJ SC/IM Reviewed 08/02/2011 12:00 AM Decadron 1 mg ND#[id number] (Jr) Reviewed 08/02/2011 12:00 AM Depo-Medrol 80 mg ND#[id number]-Vlboimbx Reviewed 03/05/2016 12:00 AM COMPLETE CBC W/AUTO DIFF WBC Returned 03/05/2016 12:00 AM STREP A ASSAY W/OPTIC Returned 03/05/2016 12:00 AM C-REACTIVE PROTEIN Returned 03/18/2016 12:00 AM [employer] - flu vaccine administration Reviewed 03/18/2016 [...] AM Depo-Medrol 80 mg [facility]#[id number]-Uxitqddc Reviewed 07/06/2016 12:00 AM CHEST X-RAY 4/> VIEWS Returned 10/14/2011 12:00 AM X-RAY EXAM OF ABDOMEN Reviewed 10/14/2011 12:00 AM URINALYSIS AUTO W/O SCOPE Reviewed 12/23/2011 12:00 AM THER/PROPH/DIAG INJ SC/IM Reviewed 12/23/2011 12:00 AM Decadron 1 mg ND#[id number] (Jr) Reviewed 12/23/2011 12:00 AM Depo-Medrol 80 mg ND#[id number]-Zjpvhxtg Reviewed 02/09/2012 12:00 AM THER/PROPH/DIAG INJ SC/IM Reviewed 02/09/2012 12:00 AM Decadron 1 mg ND#[id number] (Jr) Reviewed 02/09/2012 12:00 AM Depo-Medrol 80 mg ND#[id number]-Mrzewgcg Reviewed 03/15/2012 12:00 AM N BLOCK INJ OCCIPITAL Reviewed 03/15/2012 12:00 AM Kenalog Zr-[address]-20 ANNA Reviewed 04/11/2012 12:00 AM COMPLETE CBC W/AUTO DIFF WBC Reviewed 04/11/2012 12:00 AM COMPREHEN METABOLIC PANEL Reviewed 04/11/2012 12:00 AM LIPID PANEL Reviewed 04/11/2012 12:00 AM ASSAY THYROID STIM HORMONE Reviewed 06/20/2012 12:00 AM THER/PROPH/DIAG INJ SC/IM Reviewed 06/20/2012 12:00 AM Decadron, Per 1 Mg ND# [address]-68 Reviewed 06/20/2012 12:00 AM Depo-Medrol, Per 80 Mg ND#7278-5717-74 Reviewed 09/06/2012 12:00 AM N BLOCK INJ OCCIPITAL Reviewed 09/06/2012 12:00 AM Kenalog Es-[address]-20 ANNA Reviewed 09/06/2012 12:00 AM X-RAY EXAM RIBS UNI 2 VIEWS Reviewed 09/26/2012 12:00 AM THER/PROPH/DIAG INJ SC/IM Reviewed 09/26/2012 12:00 AM Decadron, Per 1 Mg ND# [address]-01 Reviewed 09/26/2012 12:00 AM Depo-Medrol, Per 80 Mg ND#4632-9248-65 Reviewed 10/03/2012 12:00 AM URINALYSIS AUTO W/O SCOPE Reviewed 10/03/2012 12:00 AM THER/PROPH/DIAG INJ SC/IM Reviewed 10/03/2012 12:00 AM Toradol 60 Mg ND#3139-4660-47 Reviewed 10/03/2012 12:00 AM Phenergan, 25Mg ND#7091-6662-24 Reviewed 10/19/2012 12:00 AM N BLOCK INJ OCCIPITAL Reviewed 10/19/2012 12:00 AM Kenalog, Per 10 Mg ND#6739-1788-18 Reviewed 10/19/2012 12:00 AM Toradol 30 Mg [facility]#5876-7157-57 Reviewed 10/19/2012 12:00 AM THER/PROPH/DIAG INJ SC/IM Reviewed 10/31/2012 12:00 AM COMPLETE CBC W/AUTO DIFF WBC Reviewed 10/31/2012 12:00 AM COMPREHEN METABOLIC PANEL Reviewed 10/31/2012 12:00 AM LIPID PANEL Reviewed 11/03/2012 12:[address] THORAX W/O & W/DYE Reviewed 11/08/2012 12:00 AM N BLOCK INJ OCCIPITAL Reviewed 11/08/2012 12:00 AM Kenalog Ch-[address]-20 ANNA Reviewed 11/27/2012 12:00 AM COMPLETE CBC [...] Decadron, Per 1 Mg [facility]# [address]-19 Reviewed 01/25/2013 12:00 AM Depo-Medrol, Per 80 Mg [facility]#5866-6423-51 Reviewed 01/26/2013 12:00 AM IMMUNOTHERAPY INJECTIONS Reviewed [...] Decadron, Per 1 Mg [facility]# [address]-26 Reviewed 05/16/2013 12:00 AM Depo-Medrol, Per 80 Mg [facility]#7661-8329-59 Reviewed 05/31/2013 12:00 AM IMMUNOTHERAPY INJECTIONS Reviewed 06/08/2013 12:00 AM IMMUNOTHERAPY INJECTIONS Reviewed 06/14/2013 12:00 AM IMMUNOTHERAPY INJECTIONS Reviewed 06/28/2013 12:00 AM IMMUNOTHERAPY INJECTIONS Reviewed 07/12/2013 12:00 AM X-RAY EXAM RIBS UNI 2 VIEWS Reviewed 07/18/2013 12:00 AM Toradol 60 Mg [facility]#0552-3717-68 Reviewed 07/18/2013 12:00 AM THER/PROPH/DIAG INJ SC/IM Reviewed 08/23/2013 12:00 AM COMPLETE CBC W/AUTO DIFF WBC Reviewed 08/23/2013 12:00 AM COMPREHEN METABOLIC PANEL Reviewed 08/23/2013 12:00 AM LIPID PANEL Reviewed 08/31/2013 12:00 AM X-RAY EXAM OF LOWER LEG Reviewed 09/04/2013 12:00 AM IMMUNOTHERAPY INJECTIONS Reviewed 09/14/2013 12:00 AM THER/PROPH/DIAG INJ SC/IM Reviewed 09/14/2013 12:00 AM Decadron, Per 1 Mg [facility]# [address]-85 Reviewed 09/14/2013 12:00 AM Depo-Medrol, Per 80 Mg [facility]#6001-2979-57 Reviewed 09/20/2013 12:00 AM IMMUNOTHERAPY INJECTIONS Reviewed [...] INJ OCCIPITAL Reviewed 12/10/2009 12:00 AM Kenalog Ac-[address]-20 ANNA Reviewed 12/16/2009 12:00 AM HIV-1ANTIBODY Reviewed 12/16/2009 12:00 AM COMPLETE CBC W/AUTO DIFF WBC Reviewed 12/16/2009 12:00 AM METABOLIC PANEL TOTAL CA Reviewed 12/16/2009 12:00 AM Type and screen Reviewed 12/16/2009 12:00 AM PROTHROMBIN TIME Reviewed 12/16/2009 12:00 AM THROMBOPLASTIN TIME PARTIAL Reviewed 03/18/2010 12:00 AM DRAIN/INJ JOINT/BURSA W/O US Reviewed 03/18/2010 12:00 AM Kengretta Qx-[address]-20 ANNA Reviewed 11/21/2013 12:00 AM RADEX HAND MINIMUM 3 VIEWS Reviewed 06/03/2010 12:00 AM INJ TRIGGER POINT 1/2 MUSCL Reviewed 06/03/2010 12:00 AM Kenalog per 10Mg -[facility]#[address]-78(Niall) Reviewed 12/05/2013 12:00 AM COMPLETE CBC W/AUTO [...] Reviewed 07/23/2010 12:00 AM Kenalog per 10Mg Im-[facility]#[address]-97(Niall) Reviewed 2014 12:00 AM COMPLETE CBC W/AUTO [...] INJ OCCIPITAL Reviewed 10/01/2010 12:00 AM Kenalog Ex-[address]-20 ANNA Reviewed 07/25/2014 12:00 AM THER/PROPH/DIAG INJ [...] 141 Influenza 04/24/2014 sanofi pasteur PMC Fluzone [id number] Intramuscular Left Upper Arm 02/27/2014 01/15/2014 141 Influenza 02/13/2015 sanofi pasteur PMC Fluzone [id number] Intramuscular Left Deltoid 02/13/2015 01/03/2015 140 Tdap 06/06/2015 [employer] SKB BOOSTRIX [id number] Intramuscular Left Deltoid 06/06/2015 07/23/2014 115 Influenza 03/18/2016 sanofi pasteur PMC Fluzone [id number] Intramuscular Left Deltoid 03/17/2016 01/03/2015 141 History [...] Cervical spinal stenosis Jul 09 2016 3:50PM Payers Insurance Name Company Name Plan Name Plan Number Policy Number Policy Group Number Start Date Medicare [facility] Medicare [employer] [id number] N/A [facility] Comm [id number] N/A Medicare Part A Medicare - Lab/Xray [id number] N/A Medicare Part B Medicare Of [place] [id number] Monday, February 28, 2000 [place] [facility] Prog [id number] Tuesday, November 10, 2009 Medicare Part A Medicare Part A [id number] N/A [place] [employer]g - RHC [facility] Asst Prog - RHC [id number] May [facility] Plan of [id number] Wednesday, May 30, 2012 History of Encounters Visit Date Visit Type Provider 07/09/2016 Office visit Riccardo Cardoza MD 07/06/2016 Office visit Heena Dumont MD 06/18/2016 Office visit Kaylynn Mendez 2ND PRESSMAN 06/07/2016 Office visit Sundeep Russell 2ND PRESSMAN 06/04/2016 Office visit Heena Dumont MD 05/13/2016 Office visit Heena Dumont MD 05/03/2016 Office visit Heena Dumont MD 04/26/2016 Office visit Kaylynn Mendez 2ND PRESSMAN 04/14/2016 Office visit Heena Dumont MD 04/13/2016 Office visit Kaylynn Mendez 2ND PRESSMAN 04/02/2016 Office visit Lena El 2ND PRESSMAN 04/02/2016 Office visit Heena Dumont MD 03/26/2016 Office visit Yesica Falcon 2ND PRESSMAN 03/17/2016 Office visit Heena Dumont MD 03/05/2016 Office visit Kaylynn Mendez 2ND PRESSMAN 02/16/2016 Office visit Heena Dumont MD 02/14/2016 Office visit Na Jones 2ND PRESSMAN 01/16/2016 Office visit Heena Dumont MD 12/16/2015 Office visit Heena Dumont MD 11/24/2015 Office visit Kaylynn Mendez 2ND PRESSMAN 11/18/2015 Office visit Heena Dumont MD 11/03/2015 Office visit Sundeep Russell 2ND PRESSMAN 10/20/2015 Office visit Kaylynn Mendez 2ND PRESSMAN 09/23/2015 Office visit Kaylynn Mendez 2ND PRESSMAN 09/16/[address] Pepe Figueroa MD 09/02/2015 Office visit Kaylynn Mendez 2ND PRESSMAN 09/01/2015 Office visit Kaylynn Mendez 2ND PRESSMAN 07/30/2015 Office visit Heena Dumont MD 07/15/2015 Office visit Kaylynn Mendez 2ND PRESSMAN 07/04/2015 Office visit Heena Dumont MD 06/06/2015 Office visit Heena Dumont MD 06/06/2015 Office visit Kaylynn Mendez 2ND PRESSMAN 06/02/2015 Office visit Kaylynn Mendez 2ND PRESSMAN 05/26/2015 Office visit Kaylynn Mendez 2ND PRESSMAN 05/20/2015 Office visit Kaylynn Mendez 2ND PRESSMAN 05/08/2015 Office visit Heena Dumont MD 05/06/2015 Office visit Kaylynn Mendez 2ND PRESSMAN 04/29/2015 Office visit Kaylynn Mendez 2ND PRESSMAN 03/27/2015 Voided Brittni Yanez 2ND PRESSMAN 03/21/2015 Office visit Heena Dumont MD 03/12/2015 Office visit Kaylynn Mendez 2ND PRESSMAN 02/26/2015 Office visit Brittni Yanez 2ND PRESSMAN 02/13/2015 Office visit Heena Dumont MD 01/15/2015 Office visit Brittni Yanez 2ND PRESSMAN 01/13/2015 Office visit Heena Dumont MD 01/08/[address] Carol Fowler MD 01/01/2015 Office visit Brittni Yanez 2ND PRESSMAN 12/13/2014 Office visit Heena Dumont MD 11/27/2014 Office visit Kaylynn Mendez 2ND PRESSMAN 11/14/2014 Office visit Heena Dumont MD 10/18/2014 Office visit Heena Dumont MD 10/17/2014 [facility] John Hoskins MD 10/09/2014 Office visit Heena Dumont MD 09/25/2014 Office visit Heena Dumont MD 09/17/2014 Office visit Kaylynn Mendez 2ND PRESSMAN 09/04/2014 Office visit Heena Dumont MD 08/28/2014 Office visit Kaylynn Mendez 2ND PRESSMAN 08/23/2014 Hospital John Hoskins MD 08/01/2014 Office visit Kaylynn Mendez 2ND PRESSMAN 07/29/2014 Office visit Heena Dumont MD 07/25/2014 Nurse visit Heena Dumont MD 07/17/2014 Office visit Kaylynn Mendez 2ND PRESSMAN 07/11/2014 Office visit Heena Dumont MD 07/01/2014 Office visit Heena Dumont MD 06/25/2014 Office visit Kaylynn Mendez 2ND PRESSMAN 06/12/2014 Office visit Kaylynn Mendez 2ND PRESSMAN 06/06/2014 Office visit Kaylynn Mendez 2ND PRESSMAN 05/27/2014 Office visit Heena Dumont MD 04/20/2014 Office visit Yesica Falcon 2ND PRESSMAN 03/29/2014 Office visit Na Jones 2ND PRESSMAN 03/15/2014 Office visit Heena Dumont MD 2014 Office visit Heena Dumont MD 2014 Hospital John Hoskins MD 02/27/2014 Nurse visit Heena Dumont MD 02/13/2014 Office visit Lena El 2ND PRESSMAN 02/07/2014 Office visit Heena Dumont MD 02/03/2014 Office visit Na Jones 2ND PRESSMAN 01/30/2014 Office visit Kaylynn Mendez 2ND PRESSMAN 01/24/2014 Office visit Sundeep Russell 2ND PRESSMAN 01/16/2014 Office visit Kaylynn Mendez 2ND PRESSMAN 01/10/2014 Nurse visit Kaylynn Walker 2ND PRESSMAN 01/08/2014 Office visit Kaylynn Walker 2ND PRESSMAN 12/05/2013 Office visit Kaylynn Walker 2ND PRESSMAN 11/21/2013 Office visit Kaylynn Walker 2ND PRESSMAN 10/23/2013 Office visit Brittni Yanez 2ND PRESSMAN 10/17/2013 Nurse visit Heena Dumont MD 10/12/2013 Office visit Kaylynn Mendez 2ND PRESSMAN 10/02/2013 Office visit Heena Dumont MD 09/20/2013 Nurse visit Kaylynn Mendez 2ND PRESSMAN 09/20/2013 Voided Heena Dumont MD 09/14/2013 Office visit Kaylynn Mendez 2ND PRESSMAN 09/05/2013 Office visit Sundeep Russell 2ND PRESSMAN 09/04/2013 Nurse visit Kaylynn Mendez 2ND PRESSMAN 08/31/2013 Office visit Kaylynn Mendez 2ND PRESSMAN 08/23/2013 Office visit Heena Dumont MD 08/10/2013 Office visit Kaylynn Mendez 2ND PRESSMAN 07/25/2013 Office visit Kaylynn Mendez 2ND PRESSMAN 07/18/2013 Office visit Kaylynn Walker 2ND PRESSMAN 07/12/2013 Office visit Kaylynn Walker 2ND PRESSMAN 06/28/2013 Nurse visit Kaylynn Mendez 2ND PRESSMAN 06/14/2013 Nurse visit Kaylynn Mendez 2ND PRESSMAN 06/08/2013 Nurse visit Kaylynn Walker 2ND PRESSMAN 05/31/2013 Nurse visit Chadd Norris DO 05/18/2013 Office visit Terese Davidson MD 05/16/2013 Office visit Kaylynn Mendez 2ND PRESSMAN 05/09/2013 Office visit Kaylynn Mendez 2ND PRESSMAN 04/29/2013 [facility] John Hoskins MD 04/25/2013 Nurse visit Kaylynn Mendez 2ND PRESSMAN 04/17/2013 Office visit Kaylynn Walker 2ND PRESSMAN 04/03/2013 Nurse visit Kaylynn Mendez 2ND PRESSMAN 04/03/2013 Office visit Terese Davidson MD 03/28/2013 Office visit Sundeep Russell 2ND PRESSMAN 03/21/2013 Office visit Kaylynn Mendez 2ND PRESSMAN 03/20/2013 Office visit Terese Davidson MD 03/14/2013 Nurse visit Kaylynn Mendez 2ND PRESSMAN 03/05/2013 Nurse visit Kaylynn Mendez 2ND PRESSMAN 02/19/2013 Office visit Terese Davidson MD 02/16/2013 Nurse visit Kaylynn Mendez 2ND PRESSMAN 02/09/2013 Office visit Sundeep Russell 2ND PRESSMAN 02/08/2013 Nurse visit Kaylynn Mendez 2ND PRESSMAN 02/01/2013 Nurse visit Kaylynn Walker 2ND PRESSMAN 01/26/2013 Nurse visit Sabrina Andrea DIAGNOSTICS TECH 01/25/2013 Office visit Kaylynn Mendez 2ND PRESSMAN 01/22/2013 Office visit Yoan Castaneda MD 01/18/2013 Nurse visit Kaylynn Walker 2ND PRESSMAN 01/11/2013 Nurse visit Kaylynn Walker 2ND PRESSMAN 01/05/2013 Nurse visit Kaylynn Walker 2ND PRESSMAN 12/29/2012 Office visit Kaylynn Walker 2ND PRESSMAN 11/27/2012 Office visit Kaylynn Mendez 2ND PRESSMAN 11/08/2012 Office visit Odell Tierney MD 11/08/2012 Voided Odell Tierney MD 11/07/2012 Office visit Kaylynn Mendez 2ND PRESSMAN 10/31/2012 [facility] John Hoskins MD 10/31/2012 Office visit Kaylynn Mendez 2ND PRESSMAN 10/19/2012 Office visit Genoveva Ayala 2ND PRESSMAN 10/10/2012 Office visit Kaylynn Mendez 2ND PRESSMAN 10/03/2012 Office visit Kaylynn Mendez 2ND PRESSMAN 09/26/2012 Office visit Kaylynn Mendez 2ND PRESSMAN 09/06/2012 Office visit Kaylynn Mendez 2ND PRESSMAN 09/06/2012 Office visit Odell Tierney MD 08/31/2012 Voided Kaylynn Mendez 2ND PRESSMAN 07/28/2012 Office visit Kaylynn Mendez 2ND PRESSMAN 07/27/2012 Office visit David Joyner DO 07/20/2012 [facility] David Ar DO 07/13/2012 [facility] DO 07/11/2012 Office visit Kaylynn Mendez 2ND PRESSMAN 06/27/2012 [facility] Odell Tierney MD 06/21/2012 Office visit David Joyner DO 06/21/2012 Office visit Odell Tierney MD 06/20/2012 Office visit Brittni Yanez 2ND PRESSMAN 06/06/2012 Office visit Odell Tierney MD 05/03/2012 Office visit Kaylynn Menedz 2ND PRESSMAN 04/28/2012 Office visit Brittni Yanez 2ND PRESSMAN 04/11/2012 Office visit Kaylynn Mendez 2ND PRESSMAN 04/06/2012 [facility] John Hoskins MD 03/30/2012 Office visit Kaylynn Mendez 2ND PRESSMAN 03/15/2012 Office visit Kaylynn Mendez 2ND PRESSMAN 03/15/2012 Office visit Odell Tierney MD 02/09/2012 Office visit Kaylynn Mendez 2ND PRESSMAN 12/23/2011 Office visit Kaylynn Mendez 2ND PRESSMAN 11/02/2011 Office visit Kaylynn Mendez 2ND PRESSMAN 10/14/2011 Office visit Kaylynn Mendez 2ND PRESSMAN 09/27/2011 Office visit Kaylynn Mendez 2ND PRESSMAN 08/19/2011 Hospital John Hoskins MD 08/18/2011 Hospital John Hoskins MD 08/18/2011 Office visit Kaylynn Mendez 2ND PRESSMAN 08/02/2011 Office visit Kaylynn Mendez 2ND PRESSMAN 07/08/2011 Office visit Kaylynn Mendez 2ND PRESSMAN 07/05/2011 Office visit Odell Tierney MD 06/15/2011 Office visit Kaylynn Mendez 2ND PRESSMAN 05/14/2011 Office visit Kaylynn Mendez 2ND PRESSMAN 05/11/2011 Office visit Odell Tierney MD 04/28/2011 Office visit Kaylynn Andrea 2ND PRESSMAN 03/02/2011 Office visit Chadd Norris DO 02/17/2011 [...]
--- OUTSIDE RECORDS SUMMARY | 2018-05-09 17:37 | XMS REPORT ---
Author Brittni Alvarez Organization [facility] Address [address] [place], [place] [id number] Care Team Providers Care Director Of Consumer Marketing Name Role Phone Brittni Yanez PCP Unavailable [...] route every 12 hours for 30 days Ambien CR 12.5 mg [...] 08/27/2014 use as directed for 99 days Toxey 5-325 mg oral tablet 06/17/2014 06/27/2014 take [...] a day as needed for 30 days xigxmsqz-exyjeyien-JA 3.5-10,000-1 mg/mL-unit/mL-% otic drops,suspension 201401/08/2015 instill 4 [...] Reviewed 04/28/2011 12:00 AM Decadron 1 mg ND#[id number] (Jr) Reviewed 04/28/2011 12:00 AM Depo-Medrol 80 mg NDC#[id number]-Akrcbtdb Reviewed 05/11/2011 12:00 AM N BLOCK INJ OCCIPITAL Reviewed 05/11/2011 12:00 AM Kenalog At-[address]-20 ANNA Reviewed 06/15/2011 12:00 AM COMPLETE CBC W/AUTO DIFF WBC Returned 06/15/2011 12:00 AM COMPREHEN METABOLIC PANEL Returned 07/08/2011 12:00 AM THER/PROPH/DIAG INJ SC/IM Reviewed 07/08/2011 12:00 AM Toradol,15mg ND#[id number], Adilene Reviewed 07/08/2011 12:00 AM Phenergan 50 Mg Im Ndc 3734-6512-96 FP [place] Reviewed 08/02/2011 12:00 AM THER/PROPH/DIAG INJ SC/IM Reviewed 08/02/2011 12:00 AM Decadron 1 mg NDC#[id number] (Jr) Reviewed 08/02/2011 12:00 AM Depo-Medrol 80 mg NDC#[id number]-Xalokafo Reviewed 09/27/2011 12:00 AM THER/PROPH/DIAG INJ SC/IM Reviewed 09/27/2011 12:00 AM Depo-Medrol 80 mg NDC#[id number]-Txyewhgr Reviewed 10/14/2011 12:00 AM X-RAY EXAM OF ABDOMEN Returned 10/14/2011 12:00 AM URINALYSIS AUTO W/O SCOPE Reviewed 12/23/2011 12:00 AM THER/PROPH/DIAG INJ SC/IM Reviewed 12/23/2011 12:00 AM Decadron 1 mg NDC#[id number] (Jr) Reviewed 12/23/2011 12:00 AM Depo-Medrol 80 mg NDC#[id number]-Uajnoxtn Reviewed 02/09/2012 12:00 AM THER/PROPH/DIAG INJ SC/IM Reviewed 02/09/2012 12:00 AM Decadron 1 mg NDC#[id number] (Jr) Reviewed 02/09/2012 12:00 AM Depo-Medrol 80 mg NDC#[id number]-Ecshsykc Reviewed 03/15/2012 12:00 AM N BLOCK INJ OCCIPITAL Reviewed 03/15/2012 12:00 AM Kenalog Kb-[address]-20 ANNA Reviewed 04/11/2012 12:00 AM COMPLETE CBC W/AUTO DIFF WBC Returned 04/11/2012 12:00 AM COMPREHEN METABOLIC PANEL Returned 04/11/2012 12:00 AM LIPID PANEL Returned 04/11/2012 12:00 AM ASSAY THYROID STIM HORMONE Returned 06/20/2012 12:00 AM THER/PROPH/DIAG INJ SC/IM Reviewed 06/20/2012 12:00 AM Decadron, Per 1 Mg ND# [address]-86 Reviewed 06/20/2012 12:00 AM Depo-Medrol, Per 80 Mg ND#4140-1707-19 Reviewed 09/06/2012 12:00 AM N BLOCK INJ OCCIPITAL Reviewed 09/06/2012 12:00 AM Kenalog Pu-[address]-20 ANNA Reviewed 09/06/2012 12:00 AM X-RAY EXAM RIBS UNI 2 VIEWS Returned 09/26/2012 12:00 AM THER/PROPH/DIAG INJ SC/IM Reviewed 09/26/2012 12:00 AM Decadron, Per 1 Mg ND# [address]-53 Reviewed 09/26/2012 12:00 AM Depo-Medrol, Per 80 Mg ND#7747-5370-66 Reviewed 10/03/2012 12:00 AM URINALYSIS AUTO W/O SCOPE Reviewed 10/03/2012 12:00 AM THER/PROPH/DIAG INJ SC/IM Reviewed 10/03/2012 12:00 AM Toradol 60 Mg ND#0547-7505-20 Reviewed 10/03/2012 12:00 AM Phenergan, 25Mg ND#7007-1767-90 Reviewed 10/19/2012 12:00 AM N BLOCK INJ OCCIPITAL Reviewed 10/19/2012 12:00 AM Kenalog, Per 10 Mg ND#0591-6724-08 Reviewed 10/19/2012 12:00 AM Toradol 30 Mg ND#7543-9655-41 Reviewed 10/19/2012 12:00 AM THER/PROPH/DIAG INJ SC/IM Reviewed 10/31/2012 12:00 AM COMPLETE CBC W/AUTO DIFF WBC Returned 10/31/2012 12:00 AM COMPREHEN METABOLIC PANEL Returned 10/31/2012 12:00 AM LIPID PANEL Returned 11/03/2012 12:[address] THORAX W/O & W/DYE Returned 11/08/2012 12:00 AM N BLOCK INJ OCCIPITAL Reviewed 11/08/2012 12:00 AM Kenalog Ne-[address]-20 ANNA Reviewed 11/27/2012 12:00 AM COMPLETE CBC [...] Per 1 Mg [facility]# [address]-64 Reviewed 01/25/2013 12:00 AM Depo-Medrol, Per 80 Mg [facility]#1774-3896-50 Reviewed 01/26/2013 12:00 AM IMMUNOTHERAPY INJECTIONS Returned [...] 12:00 AM Decadron, Per 1 Mg ND# [address]-88 Reviewed 05/16/2013 12:00 AM Depo-Medrol, Per 80 Mg [facility]#6288-1279-89 Reviewed 05/31/2013 12:00 AM IMMUNOTHERAPY INJECTIONS Reviewed 06/08/2013 12:00 AM IMMUNOTHERAPY INJECTIONS Reviewed 06/14/2013 12:00 AM IMMUNOTHERAPY INJECTIONS Reviewed 06/28/2013 12:00 AM IMMUNOTHERAPY INJECTIONS Reviewed 07/12/2013 12:00 AM X-RAY EXAM RIBS UNI 2 VIEWS Returned 07/18/2013 12:00 AM Toradol 60 Mg [facility]#2206-5279-04 Reviewed 07/18/2013 12:00 AM THER/PROPH/DIAG INJ SC/IM Reviewed 08/23/2013 12:00 AM COMPLETE CBC W/AUTO DIFF WBC Reviewed 08/23/2013 12:00 AM COMPREHEN METABOLIC PANEL Reviewed 08/23/2013 12:00 AM LIPID PANEL Reviewed 08/31/2013 12:00 AM X-RAY EXAM OF LOWER LEG Returned 09/04/2013 12:00 AM IMMUNOTHERAPY INJECTIONS Reviewed 09/14/2013 12:00 AM THER/PROPH/DIAG INJ SC/IM Reviewed 09/14/2013 12:00 AM Decadron, Per 1 Mg [facility]# [address]-91 Reviewed 09/14/2013 12:00 AM Depo-Medrol, Per 80 Mg [facility]#7835-3141-49 Reviewed 09/20/2013 12:00 AM IMMUNOTHERAPY INJECTIONS Reviewed [...] INJ OCCIPITAL Reviewed 12/10/2009 12:00 AM Kenalog Sl-[address]-20 ANNA Reviewed 12/16/2009 12:00 AM HIV-1ANTIBODY Reviewed 12/16/2009 12:00 AM COMPLETE CBC W/AUTO DIFF WBC Reviewed 12/16/2009 12:00 AM METABOLIC PANEL TOTAL CA Reviewed 12/16/2009 12:00 AM Type and screen Reviewed 12/16/2009 12:00 AM PROTHROMBIN TIME Reviewed 12/16/2009 12:00 AM THROMBOPLASTIN TIME PARTIAL Reviewed 03/18/2010 12:00 AM DRAIN/INJ JOINT/BURSA W/O US Reviewed 03/18/2010 12:00 AM Kenalog Ru-[address]-20 ANNA Reviewed 11/21/2013 12:00 AM RADEX HAND MINIMUM 3 VIEWS Returned 06/03/2010 12:00 AM INJ TRIGGER POINT 1/2 MUSCL Reviewed 06/03/2010 12:00 AM Kenalog per 10Mg Im-Nd#[address]-75(Niall) Reviewed 12/05/2013 12:00 AM COMPLETE CBC W/AUTO [...] Reviewed 07/23/2010 12:00 AM Kenalog per 10Mg Im-Nd#[address]-16(Niall) Reviewed 2014 12:00 AM COMPLETE CBC W/AUTO [...] INJ OCCIPITAL Reviewed 10/01/2010 12:00 AM Kenalog Ss-[address]-20 ANNA Reviewed 07/25/2014 12:00 AM THER/PROPH/DIAG INJ [...] 0.60 mg/dLCALCIUM 10.90 mg/ dLeGFR >60 mL/min/1.73 [id number] 45.0 U/L 08/31/2013 10:54 AM GLUCOSE 255.0 [...] 0.40 mg/ dLCALCIUM 10.60 mg/dLeGFR >60 mL/min/1.73 [id number] 369.0 mg/ dLCHOLESTEROL 153.0 mg/dLHDL 26.0 mg/dLLDL [...] BILI 0.30 mg/dLCALCIUM 10.0 mg/dLeGFR >60 mL/min/1.73 [id number] YELLOW APPEARANCE CLEAR SPEC GRAV 1.010 pH 5.5 PROTEIN NEGATIVE GLUCOSE NEGATIVE KETONE NEGATIVE BILIRUBIN NEGATIVE BLOOD NEGATIVE NITRITE NEGATIVE LEUK SCREEN NEGATIVE HGB A1C 6.30 %Est Avg Glucose 134.1 mg/dLMICROALBUMIN UR <0.5 MG/DL 02/13/2015 4:38 PM RMSF, IgG, EIA Negative [facility] Spotted Fever,IgM 0.51 E. chaffeensis [...] 141 Influenza 04/24/2014 sanofi pasteur PMC Fluzone [id number] Intramuscular Left Upper Arm 02/27/2014 01/15/2014 141 Influenza 02/13/2015 sanofi pasteur PMC Fluzone [id number] Intramuscular Left Deltoid 02/13/2015 01/03/2015 140 History [...] Date Medicare Part A Medicare Part A [id number] N/A [facility] Comm [id number] N/A [facility] [id number] May [facility] Comm Plan of [id number] Wednesday, 2012 Medicare Part B Medicare Of [place] [id number] Monday, 2000 [place] [facility] Medical Assistance Pro [id number] Tuesday, 2009 History of Encounters Visit Date Visit Type Provider 02/26/[address] [employer]INGS INSPECTOR 02/13/2015 Office visit Heena Dumont MD 01/15/[address]ni Yanez [facility] OPENINGS INSPECTOR 01/13/2015 Office visit Heena Dumont MD 01/08/[address] Carol Fowler MD 01/01/2015 Office visit Brittni Yanez [facility] OPENINGS INSPECTOR 12/13/2014 Office visit Heena Dumont MD 11/27/2014 Office [address] Kaylynn Mendez [facility] OPENINGS INSPECTOR 11/14/2014 Office visit Heena Dumont MD 10/18/2014 Office visit Heena Dumont MD 10/17/2014 [facility] Jhon Hoskins MD 10/09/2014 Office visit Heena Dumont MD 09/25/2014 Office visit Heena Dumont MD 09/17/2014 Office visit Kaylynn Mendez [facility] OPENINGS INSPECTOR 09/04/2014 Office visit Heena Dumont MD 08/28/2014 Office visit Kaylynn Mendez [facility] OPENINGS INSPECTOR 08/23/2014 [facility] Hoskins MD 08/01/2014 Office visit Kaylynn Mendez [facility] OPENINGS INSPECTOR 07/29/2014 Office visit Heena Dumont MD 07/25/2014 Nurse visit Heena Dumont MD 07/17/2014 Office visit Kaylynn Mendez [facility] OPENINGS INSPECTOR 07/11/2014 Office visit Heena Dumont MD 07/01/2014 Office visit Heena Dumont MD 06/25/2014 Office visit Kaylynn Mendez [facility] OPENINGS INSPECTOR 06/12/2014 Office visit Kaylynn Mendez [facility] OPENINGS INSPECTOR 06/06/2014 Office visit Kaylynn Mendez [facility] OPENINGS INSPECTOR 05/27/2014 Office visit Heena Dumont MD 04/20/2014 Office visit Yesica Falcon [facility] OPENINGS INSPECTOR 03/29/2014 Office visit Na Jones [facility] OPENINGS INSPECTOR 03/15/2014 Office visit Heena Dumont MD 2014 Office visit Heena Dumont MD 2014 [facility] John Hoskins MD 02/27/2014 Nurse visit Heena Dumont MD 02/13/2014 Office visit Lena El [facility] OPENINGS INSPECTOR 02/07/2014 Office visit Heena Dumont MD 02/03/2014 Office visit Na Jones [facility] OPENINGS INSPECTOR 01/30/2014 Office visit Kaylynn Walker [facility] OPENINGS INSPECTOR 01/24/2014 Office visit Sundeep Russell [facility] OPENINGS INSPECTOR 01/16/2014 Office visit Kaylynn Walker [facility] OPENINGS INSPECTOR 01/10/2014 Nurse visit Kaylynn Walker [facility] OPENINGS INSPECTOR 01/08/2014 Office visit Kaylynn Walker [facility] OPENINGS INSPECTOR 12/05/2013 Office visit Kaylynn Walker [facility] OPENINGS INSPECTOR 11/21/2013 Office visit Kaylynn Walker [facility] OPENINGS INSPECTOR 10/23/2013 Office visit Brittni Yanez STRE[facility] OPENINGS INSPECTOR 10/17/2013 Nurse visit Heena Dumont MD 10/12/2013 Office visit Kaylynn Andrea [facility] OPENINGS INSPECTOR 10/02/2013 Office visit Heena Dumont MD 09/20/2013 Nurse visit Kaylynn Mendez [facility] OPENINGS INSPECTOR 09/20/2013 Voided Heena Dumont MD 09/14/2013 Office visit Kaylynn Walker [facility] OPENINGS INSPECTOR 09/05/2013 Office visit Sundeep Russell [facility] OPENINGS INSPECTOR 09/04/2013 Nurse visit Kaylynn Walker [facility] OPENINGS INSPECTOR 08/31/2013 Office visit Kaylynn Walker [facility] OPENINGS INSPECTOR 08/23/2013 Office visit Heena Dumont MD 08/10/2013 Office visit Kaylynn Walker [facility] OPENINGS INSPECTOR 07/25/2013 Office visit Kaylynn Walker [facility] OPENINGS INSPECTOR 07/18/2013 Office visit Kaylynn Walker [facility] OPENINGS INSPECTOR 07/12/2013 Office visit Kaylynn Walker [facility] OPENINGS INSPECTOR 06/28/2013 Nurse visit Kaylynn Walker [facility] OPENINGS INSPECTOR 06/14/2013 Nurse visit Kaylynn Walker [facility] OPENINGS INSPECTOR 06/08/2013 Nurse visit Kaylynn Walker [facility] OPENINGS INSPECTOR 05/31/2013 Nurse visit Chadd Norris DO 05/18/2013 Office visit Terese Davidson MD 05/16/2013 Office visit Kaylynn Mendez [facility] OPENINGS INSPECTOR 05/09/2013 Office visit Kaylynn Mendez [facility] OPENINGS INSPECTOR 04/29/2013 [facility] John Hoskins MD 04/25/2013 Nurse visit Kaylynn Walker [facility] OPENINGS INSPECTOR 04/17/2013 Office visit Kaylynn Walker [facility] OPENINGS INSPECTOR 04/03/2013 Nurse visit Kaylynn Mendez [facility] OPENINGS INSPECTOR 04/03/2013 Office visit Terese Davidson MD 03/28/2013 Office visit Sundeep Russell [facility] OPENINGS INSPECTOR 03/21/2013 Office visit Kaylynn Mendez [facility] OPENINGS INSPECTOR 03/20/2013 Office visit Terese Davidson MD 03/14/2013 Nurse visit Kaylynn Mendez [facility] OPENINGS INSPECTOR 03/05/2013 Nurse visit Kaylynn Mendez [facility] OPENINGS INSPECTOR 02/19/2013 Office visit Terese Davidson MD 02/16/2013 Nurse visit Kaylynn Mendez [facility] OPENINGS INSPECTOR 02/09/2013 Office visit Sundeep Russell [facility] OPENINGS INSPECTOR 02/08/2013 Nurse visit Kaylynn Mendez ST[employer] OPENINGS INSPECTOR 02/01/2013 Nurse visit Kaylynn Walker [facility] OPENINGS INSPECTOR 01/26/2013 Nurse visit Sabrina Andrea CAD TECHNICIAN 01/25/2013 Office visit Kaylynn Mendez [facility] OPENINGS INSPECTOR 01/22/2013 Office visit Yoan Castaneda MD 01/18/2013 Nurse visit Kaylynn Walker [facility] OPENINGS INSPECTOR 01/11/2013 Nurse visit Kaylynn Walker [facility] OPENINGS INSPECTOR 01/05/2013 Nurse visit Kaylynn Walker [facility] OPENINGS INSPECTOR 12/29/2012 Office visit Kaylynn Walker [facility] OPENINGS INSPECTOR 11/27/2012 Office visit Kaylynn Walker [facility] OPENINGS INSPECTOR 11/08/2012 Office visit Odell Tierney MD 11/08/2012 Voided Odell Tierney MD 11/07/2012 Office visit Kaylynn Mendez [facility] OPENINGS INSPECTOR 10/31/2012 [facility] John Hoskins MD 10/31/2012 Office visit Kaylynn Mendez [facility] OPENINGS INSPECTOR 10/19/2012 Office visit Genoveva Ayala STRE[facility] OPENINGS INSPECTOR 10/10/2012 Office visit Kaylynn Mendez [facility] OPENINGS INSPECTOR 10/03/2012 Office visit Kaylynn Walker [facility] OPENINGS INSPECTOR 09/26/2012 Office visit Kaylynn Mendez [facility]RE[facility] OPENINGS INSPECTOR 09/06/2012 Office visit Kaylynn Mendez [facility] OPENINGS INSPECTOR 09/06/2012 Office visit Odell Tierney MD 08/31/[address] OPENINGS INSPECTOR 07/28/2012 Office visit Kaylynn Mendez [facility] OPENINGS INSPECTOR 07/27/2012 Office visit David Joyner DO 07/20/2012 [facility] DO 07/13/2012 [facility] DO 07/11/2012 Office visit Kaylynn Mendez [facility] OPENINGS INSPECTOR 06/27/2012 [facility] Odell Tierney MD 06/21/2012 Office visit David Joyner DO 06/21/2012 Office visit Odell Tierney MD 06/20/2012 Office [address] Brittni Yanez STRE[facility] OPENINGS INSPECTOR 06/06/2012 Office visit Odell Tierney MD 05/03/2012 Office visit Kaylynn Mendez [facility] OPENINGS INSPECTOR 04/28/2012 Office visit Brittni Yanez STRE[facility] OPENINGS INSPECTOR 04/11/2012 Office visit Kaylynn Mendez [facility] OPENINGS INSPECTOR 04/06/2012 [facility] John Hoskins MD 03/30/2012 Office visit Kaylynn Mendez [facility] OPENINGS INSPECTOR 03/15/2012 Office visit Kaylynn Mendez [facility] OPENINGS INSPECTOR 03/15/2012 Office visit Odell Tierney MD 02/09/2012 Office visit Kaylynn Mendez [facility] OPENINGS INSPECTOR 12/23/2011 Office visit Kaylynn Mendez [facility] OPENINGS INSPECTOR 11/02/2011 Office visit Kaylynn Walker [facility] OPENINGS INSPECTOR 10/14/2011 Office visit Kaylynn Mendez [facility] OPENINGS INSPECTOR 09/27/2011 Office visit Kaylynn Mendez [facility] OPENINGS INSPECTOR 08/19/2011 [facility] MD 08/18/2011 [facility] Hos[facility] MD 08/18/2011 Office visit Kaylynn Mendez [facility] OPENINGS INSPECTOR 08/02/2011 Office visit Kaylynn Mendez [facility] OPENINGS INSPECTOR 07/08/2011 Office visit Kaylynn Mendez [facility] OPENINGS INSPECTOR 07/05/2011 Office visit Odell Tierney MD 06/15/2011 Office visit Kaylynn Mendez [facility] OPENINGS INSPECTOR 05/14/2011 Office visit Kaylynn Mendez [facility] OPENINGS INSPECTOR 05/11/2011 Office visit Odell Tierney MD 04/28/2011 Office visit Kaylynn Andrea ST[facility] OPENINGS INSPECTOR 03/02/2011 Office visit Chadd Norris DO 02/17/2011 [...]
--- OUTSIDE RECORDS SUMMARY | 2018-05-09 17:41 | XMS REPORT ---
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 Name Role Phone Kaylynn Mendez PCP [...] hours oxycodone 5 mg oral tablet 06/02/2015 07/02/2015 take 1 tablet by oral route every [...] 08/27/2014 use as directed for 99 days [place] 5-325 mg oral tablet 06/17/2014 06/27/2014 take [...] a day as needed for 30 days mdcpwkoi-dsuycilxv-HC 3.5-10,000-1 mg/mL-unit/mL-% otic drops,suspension 201401/08/2015 instill 4 [...] HC BMI BSA BMI Percentile O2 Sat(%) 06/02/2015 3:06:00 PM 124 mmHg 64 mmHg [...] Reviewed 04/28/2011 12:00 AM Decadron 1 mg [facility]#[id number] (Jr) Reviewed 04/28/2011 12:00 AM Depo-Medrol 80 mg ND#[id number]-Mzrwlxkm Reviewed 05/11/2011 12:00 AM N BLOCK INJ OCCIPITAL Reviewed 05/11/2011 12:00 AM Kenalog Lb-[address]-20 ANNA Reviewed 06/15/2011 12:00 AM COMPLETE CBC W/AUTO DIFF WBC Returned 06/15/2011 12:00 AM COMPREHEN METABOLIC PANEL Returned 07/08/2011 12:00 AM THER/PROPH/DIAG INJ SC/IM Reviewed 07/08/2011 12:00 AM Toradol,15mg ND#[id number], Adilene Reviewed 07/08/2011 12:00 AM Phenergan 50 Mg Im Nd 4386-3715-11 ALLIE Hoskins Reviewed 08/02/2011 12:00 AM THER/PROPH/DIAG INJ SC/IM Reviewed 08/02/2011 12:00 AM Decadron 1 mg NDC#[id number] (Jr) Reviewed 08/02/2011 12:00 AM Depo-Medrol 80 mg NDC#[id number]-Zdaxlviz Reviewed 09/27/2011 12:00 AM THER/PROPH/DIAG INJ SC/IM Reviewed 09/27/2011 12:00 AM Depo-Medrol 80 mg NDC#[id number]-Uqedgspq Reviewed 10/14/2011 12:00 AM X-RAY EXAM OF ABDOMEN Returned 10/14/2011 12:00 AM URINALYSIS AUTO W/O SCOPE Reviewed 12/23/2011 12:00 AM THER/PROPH/DIAG INJ SC/IM Reviewed 12/23/2011 12:00 AM Decadron 1 mg NDC#50090026007 (Jr) Reviewed 12/23/2011 12:00 AM Depo-Medrol 80 mg NDC#[id number]-Xqnwvhuj Reviewed 02/09/2012 12:00 AM THER/PROPH/DIAG INJ SC/IM Reviewed 02/09/2012 12:00 AM Decadron 1 mg NDC#[id number] (Jr) Reviewed 02/09/2012 12:00 AM Depo-Medrol 80 mg NDC#[id number]-Fkvrtctk Reviewed 03/15/2012 12:00 AM N BLOCK INJ OCCIPITAL Reviewed 03/15/2012 12:00 AM Kenalog Um-[address]-20 ANNA Reviewed 04/11/2012 12:00 AM COMPLETE CBC W/AUTO DIFF WBC Returned 04/11/2012 12:00 AM COMPREHEN METABOLIC PANEL Returned 04/11/2012 12:00 AM LIPID PANEL Returned 04/11/2012 12:00 AM ASSAY THYROID STIM HORMONE Returned 06/20/2012 12:00 AM THER/PROPH/DIAG INJ SC/IM Reviewed 06/20/2012 12:00 AM Decadron, Per 1 Mg NDC# [address]-93 Reviewed 06/20/2012 12:00 AM Depo-Medrol, Per 80 Mg NDC#5472-4759-43 Reviewed 09/06/2012 12:00 AM N BLOCK INJ OCCIPITAL Reviewed 09/06/2012 12:00 AM Kenalog Uv-[address]-20 ANNA Reviewed 09/06/2012 12:00 AM X-RAY EXAM RIBS UNI 2 VIEWS Returned 09/26/2012 12:00 AM THER/PROPH/DIAG INJ SC/IM Reviewed 09/26/2012 12:00 AM Decadron, Per 1 Mg [facility]# [address]-76 Reviewed 09/26/2012 12:00 AM Depo-Medrol, Per 80 Mg [facility]#4969-9022-83 Reviewed 10/03/2012 12:00 AM URINALYSIS AUTO W/O SCOPE Reviewed 10/03/2012 12:00 AM THER/PROPH/DIAG INJ SC/IM Reviewed 10/03/2012 12:00 AM Toradol 60 Mg [facility]#1792-7684-96 Reviewed 10/03/2012 12:00 AM Phenergan, 25Mg [facility]#7994-2817-18 Reviewed 10/19/2012 12:00 AM N BLOCK INJ OCCIPITAL Reviewed 10/19/2012 12:00 AM Kenalog, Per 10 Mg [facility]#2746-2209-35 Reviewed 10/19/2012 12:00 AM Toradol 30 Mg [facility]#6989-1026-23 Reviewed 10/19/2012 12:00 AM THER/PROPH/DIAG INJ SC/IM Reviewed 10/31/2012 12:00 AM COMPLETE CBC W/AUTO DIFF WBC Returned 10/31/2012 12:00 AM COMPREHEN METABOLIC PANEL Returned 10/31/2012 12:00 AM LIPID PANEL Returned 11/03/2012 12:[address] THORAX W/O & W/DYE Returned 11/08/2012 12:00 AM N BLOCK INJ OCCIPITAL Reviewed 11/08/2012 12:00 AM Kenalog Mo-[address]-20 ANNA Reviewed 11/27/2012 12:00 AM COMPLETE CBC [...] 01/25/2013 12:00 AM Decadron, Per 1 Mg [facility]# [address]-34 Reviewed 01/25/2013 12:00 AM Depo-Medrol, Per 80 Mg [facility]#5997-4967-17 Reviewed 01/26/2013 12:00 AM IMMUNOTHERAPY INJECTIONS Returned [...] 05/16/2013 12:00 AM Decadron, Per 1 Mg [facility]# [address]-27 Reviewed 05/16/2013 12:00 AM Depo-Medrol, Per 80 Mg [facility]#9663-4714-57 Reviewed 05/31/2013 12:00 AM IMMUNOTHERAPY INJECTIONS Reviewed 06/08/2013 12:00 AM IMMUNOTHERAPY INJECTIONS Reviewed 06/14/2013 12:00 AM IMMUNOTHERAPY INJECTIONS Reviewed 06/28/2013 12:00 AM IMMUNOTHERAPY INJECTIONS Reviewed 07/12/2013 12:00 AM X-RAY EXAM RIBS UNI 2 VIEWS Returned 07/18/2013 12:00 AM Toradol 60 Mg [facility]#9323-7157-00 Reviewed 07/18/2013 12:00 AM THER/PROPH/DIAG INJ SC/IM Reviewed 08/23/2013 12:00 AM COMPLETE CBC W/AUTO DIFF WBC Reviewed 08/23/2013 12:00 AM COMPREHEN METABOLIC PANEL Reviewed 08/23/2013 12:00 AM LIPID PANEL Reviewed 08/31/2013 12:00 AM X-RAY EXAM OF LOWER LEG Returned 09/04/2013 12:00 AM IMMUNOTHERAPY INJECTIONS Reviewed 09/14/2013 12:00 AM THER/PROPH/DIAG INJ SC/IM Reviewed 09/14/2013 12:00 AM Decadron, Per 1 Mg [facility]# [address]-43 Reviewed 09/14/2013 12:00 AM Depo-Medrol, Per 80 Mg [facility]#4201-1578-90 Reviewed 09/20/2013 12:00 AM IMMUNOTHERAPY INJECTIONS Reviewed [...] INJ OCCIPITAL Reviewed 12/10/2009 12:00 AM Quentin We-[address]-20 ANNA Reviewed 12/16/2009 12:00 AM HIV-1ANTIBODY Reviewed 12/16/2009 12:00 AM COMPLETE CBC W/AUTO DIFF WBC Reviewed 12/16/2009 12:00 AM METABOLIC PANEL TOTAL CA Reviewed 12/16/2009 12:00 AM Type and screen Reviewed 12/16/2009 12:00 AM PROTHROMBIN TIME Reviewed 12/16/2009 12:00 AM THROMBOPLASTIN TIME PARTIAL Reviewed 03/18/2010 12:00 AM DRAIN/INJ JOINT/BURSA W/O US Reviewed 03/18/2010 12:00 AM Kengretta Ch-[address]-20 ANNA Reviewed 11/21/2013 12:00 AM RADEX HAND MINIMUM 3 VIEWS Returned 06/03/2010 12:00 AM INJ TRIGGER POINT 1/2 MUSCL Reviewed 06/03/2010 12:00 AM Kenalog per 10Mg Im-[facility]#[address]-03(Niall) Reviewed 12/05/2013 12:00 AM COMPLETE CBC W/AUTO [...] Reviewed 07/23/2010 12:00 AM Kenalog per 10Mg Im-Nd#[address]-46(Niall) Reviewed 2014 12:00 AM COMPLETE CBC W/AUTO [...] INJ OCCIPITAL Reviewed 10/01/2010 12:00 AM Quentin Zp-[address]-20 ANNA Reviewed 07/25/2014 12:00 AM THER/PROPH/DIAG INJ [...] 0.60 mg/dLCALCIUM 10.90 mg/ dLeGFR >60 mL/min/1.73 [id number] 45.0 U/L 08/31/2013 10:54 AM GLUCOSE 255.0 mg/dLSODIUM 133.0 mmol/LPOTASSIUM 4.60 mmol/ LCHLORIDE 100.0 mmol/LCO2 20.0 mmol/LBUN 12.0 mg/dLCREATININE 0.80 mg/dLSGOT/ AST 52.0 IU/LSGPT/ALT 87.0 IU/LALK PHOS 118.0 IU/LTOTAL PROTEIN 7.20 g/ dLALBUMIN 4.30 g/dLTOTAL BILI 0.30 mg/dLCALCIUM 9.30 mg/dLeGFR 60 WBC 11.3 RBC 3.96 HGB 12.40 g/dLHCT 37.80 %MCV 96.0 fLH 31.30 pgMCHC 32.80 g/dLRDW CV 12.80 %MPV [...] 0.40 mg/ dLCALCIUM 10.60 mg/dLeGFR >60 mL/min/1.73 [id number] 369.0 mg/ dLCHOLESTEROL 153.0 mg/dLHDL 26.0 mg/dLLDL [...] BILI 0.30 mg/dLCALCIUM 10.0 mg/dLeGFR >60 mL/min/1.73 [id number] YELLOW APPEARANCE CLEAR SPEC GRAV 1.010 pH [...] Not Entered 03/31/2011 05/30/2015 141 Influenza 04/24/2014 [facility] Fluzone [id number] Intramuscular Left Upper Arm 02/27/2014 01/15/2014 141 Influenza 02/13/2015 [facility] Fluzone [id number] Intramuscular Left Deltoid 02/13/2015 01/03/2015 140 History [...] 08 2011 1:38PM Heart Sound Abnormality Feb 9 [...] 2015 3:08PM Osteoporosis Jun 02 2015 3:08PM Payers Insurance Name Company Name Plan Name Plan Number Policy Number Policy Group Number Start Date Medicare Part A Medicare Part A [id number] N/A [facility] Comm [id number] N/A [place] [facility]g - [facility] Clinical Interviewer Prog - [facility] [id number] May [facility] Comm Plan of [id number] Wednesday, 2012 Medicare Part B Medicare [facility] [id number] Monday, 2000 [place] [employer] [facility] [place] [employer] [id number] Tuesday, 2009 History of Encounters Visit Date Visit Type Provider 06/02/2015 Office visit Kaylynn Mendez HIMS CODER 05/26/2015 Office visit Kaylynn Mendez HIMS CODER 05/20/2015 Office visit Kaylynn Mendez HIMS CODER 05/08/2015 Office visit Heena Dumont MD 05/06/2015 Office visit Kaylynn Mendez HIMS CODER 04/29/2015 Office visit Kaylynn Mendez HIMS CODER 03/27/2015 Voided Brittni Yanez HIMS CODER 03/21/2015 Office visit Heena Dumont MD 03/12/2015 Office visit Kaylynn Mendez HIMS CODER 02/26/2015 Office visit Brittni Yanez HIMS CODER 02/13/2015 Office visit Heena Dumont MD 01/15/2015 Office visit Brittni Yanez HIMS CODER 01/13/2015 Office visit Heena Dumont MD 01/08/[address] Carol Fowler MD 01/01/2015 Office visit Brittni Yanez HIMS CODER 12/13/2014 Office visit Heena Dumont MD 11/27/2014 Office visit Kaylynn Mendez HIMS CODER 11/14/2014 Office visit Heena Dumont MD 10/18/2014 Office visit Heena Dumont MD 10/17/2014 [facility] John Hoskins MD 10/09/2014 Office visit Heena Dumont MD 09/25/2014 Office visit Heena Dumont MD 09/17/2014 Office visit Kaylynn Mendez HIMS CODER 09/04/2014 Office visit Heena Dumont MD 08/28/2014 Office visit Kaylynn Mendez HIMS CODER 08/23/2014 [facility] John Hoskins MD 08/01/2014 Office visit Kaylynn Mendez HIMS CODER 07/29/2014 Office visit Heena Dumont MD 07/25/2014 Nurse visit Heena Dumont MD 07/17/2014 Office visit Kaylynn Mendez HIMS CODER 07/11/2014 Office visit Heena Dumont MD 07/01/2014 Office visit Heena Dumont MD 06/25/2014 Office visit Kaylynn Mendez HIMS CODER 06/12/2014 Office visit Kaylynn Mendez HIMS CODER 06/06/2014 Office visit Kaylynn Mendez HIMS CODER 05/27/2014 Office visit Heena Dumont MD 04/20/2014 Office visit Yesica Falcon HIMS CODER 03/29/2014 Office visit Na Jones HIMS CODER 03/15/2014 Office visit Heena Dumont MD 2014 Office visit Heena Dumont MD 2014 [facility] John Hoskins MD 02/27/2014 Nurse visit Heena Dumont MD 02/13/2014 Office visit Lena El HIMS CODER 02/07/2014 Office visit Heena Dumont MD 02/03/2014 Office visit Na Jones HIMS CODER 01/30/2014 Office visit Kaylynn Mendez HIMS CODER 01/24/2014 Office visit Sundeep Russell HIMS CODER 01/16/2014 Office visit Kaylynn Walker HIMS CODER 01/10/2014 Nurse visit Kaylynn Walker HIMS CODER 01/08/2014 Office visit Kaylynn Walker HIMS CODER 12/05/2013 Office visit Kaylynn Walker HIMS CODER 11/21/2013 Office visit Kaylynn Walker HIMS CODER 10/23/2013 Office visit Brittni Yanez HIMS CODER 10/17/2013 Nurse visit Heena Dumont MD 10/12/2013 Office visit Kaylynn Mendez HIMS CODER 10/02/2013 Office visit Heena Dumont MD 09/20/2013 Nurse visit Kaylynn Mendez HIMS CODER 09/20/2013 Voided Heena Dumont MD 09/14/2013 Office visit Kaylynn Mendez HIMS CODER 09/05/2013 Office visit Sundeep Russell HIMS CODER 09/04/2013 Nurse visit Kaylynn Mendez HIMS CODER 08/31/2013 Office visit Kaylynn Mendez HIMS CODER 08/23/2013 Office visit Heena Dumont MD 08/10/2013 Office visit Kaylynn Mendez HIMS CODER 07/25/2013 Office visit Kaylynn Walker HIMS CODER 07/18/2013 Office visit Kaylynn Walker HIMS CODER 07/12/2013 Office visit Kaylynn Mendez HIMS CODER 06/28/2013 Nurse visit Kaylynn Walker HIMS CODER 06/14/2013 Nurse visit Kaylynn Walker HIMS CODER 06/08/2013 Nurse visit Kaylynn Walker HIMS CODER 05/31/2013 Nurse visit Chadd Norris DO 05/18/2013 Office visit Terese Davidson MD 05/16/2013 Office visit Kaylynn Mendez HIMS CODER 05/09/2013 Office visit Kaylynn Mendez HIMS CODER 04/29/2013 [facility] Eliseo Hoskins MD 04/25/2013 Nurse visit Kaylynn Walker HIMS CODER 04/17/2013 Office visit Kaylynn Walker HIMS CODER 04/03/2013 Nurse visit Kaylynn Mendez HIMS CODER 04/03/2013 Office visit Terese Davidson MD 03/28/2013 Office visit Sundeep Russell HIMS CODER 03/21/2013 Office visit Kaylynn Mendez HIMS CODER 03/20/2013 Office visit Terese Davidson MD 03/14/2013 Nurse visit Kaylynn Mendez HIMS CODER 03/05/2013 Nurse visit Kaylynn Mendez HIMS CODER 02/19/2013 Office visit Terese Davidson MD 02/16/2013 Nurse visit Kaylynn Mendez HIMS CODER 02/09/2013 Office visit Sundeep Russell HIMS CODER 02/08/2013 Nurse visit Kaylynn Mendez HIMS CODER 02/01/2013 Nurse visit Kaylynn Mendez HIMS CODER 01/26/2013 Nurse visit Sabrina Mendez CHARGING CRANE OPERATOR 01/25/2013 Office visit Kaylynn Walker HIMS CODER 01/22/2013 Office visit Yoan Castaneda MD 01/18/2013 Nurse visit Kaylynn Mendez HIMS CODER 01/11/2013 Nurse visit Kaylynn Walker HIMS CODER 01/05/2013 Nurse visit Kaylynn Walker HIMS CODER 12/29/2012 Office visit Kaylynn Walker HIMS CODER 11/27/2012 Office visit Kaylynn Walker HIMS CODER 11/08/2012 Office visit Odell Tierney MD 11/08/2012 Voided Odell Tierney MD 11/07/2012 Office visit Kaylynn Mendez HIMS CODER 10/31/2012 [facility] John Hoskins MD 10/31/2012 Office visit Kaylynn Mendez HIMS CODER 10/19/2012 Office visit Genoveva Ayala HIMS CODER 10/10/2012 Office visit Kaylynn Mendez HIMS CODER 10/03/2012 Office visit Kaylynn Mendez HIMS CODER 09/26/2012 Office visit Kaylynn Mendez HIMS CODER 09/06/2012 Office visit Kaylynn Mendez HIMS CODER 09/06/2012 Office visit Odell Tierney MD 08/31/2012 Voided Kaylynn Mendez HIMS CODER 07/28/2012 Office visit Kaylynn Mendez HIMS CODER 07/27/2012 Office visit [facility] 07/20/[facility] [facility] DO 07/11/2012 Office visit Kaylynn Mendez HIMS CODER 06/27/2012 [facility] Odell Tierney MD 06/21/2012 Office visit David Joyner DO 06/21/2012 Office visit Odell Tierney MD 06/20/2012 Office visit Brittni Yanez HIMS CODER 06/06/2012 Office visit Odell Tierney MD 05/03/2012 Office visit Kaylynn Mendez HIMS CODER 04/28/2012 Office visit Brittni Yanez HIMS CODER 04/11/2012 Office visit Kaylynn Mendez HIMS CODER 04/06/2012 [facility] John Hoskins MD 03/30/2012 Office visit Kaylynn Mendez HIMS CODER 03/15/2012 Office visit Kaylynn Mendez HIMS CODER 03/15/2012 Office visit Odell Tierney MD 02/09/2012 Office visit Kaylynn Mendez HIMS CODER 12/23/2011 Office visit Kaylynn Mendez HIMS CODER 11/02/2011 Office visit Kaylynn Mendez HIMS CODER 10/14/2011 Office visit Kaylynn Mendez HIMS CODER 09/27/2011 Office visit Kaylynn Mendez HIMS CODER 08/19/2011 [facility] John Hoskins MD 08/18/2011 [facility] John Hoskins MD 08/18/2011 Office visit Kaylynn Mendez HIMS CODER 08/02/2011 Office visit Kaylynn Mendez HIMS CODER 07/08/2011 Office visit Kaylynn Mendez HIMS CODER 07/05/2011 Office visit Odell Tierney MD 06/15/2011 Office visit Kaylynn Mendez HIMS CODER 05/14/2011 Office visit Kaylynn Mendez HIMS CODER 05/11/2011 Office visit Odell Tierney MD 04/28/2011 Office visit Kaylynn Mendez HIMS CODER 03/02/2011 Office visit Chadd Norris DO 02/17/2011 [...]
--- OUTSIDE RECORDS SUMMARY | 2018-05-09 17:46 | XMS REPORT ---
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 [id number]-[id number]-QY 3.5-10,000-1 mg/mL-unit/mL-% otic drops,suspension 201607/23/2016 instill 4 [...] Reviewed 04/28/2011 12:00 AM Decadron 1 mg ND#[id number] (Jr) Reviewed 04/28/2011 12:00 AM Depo-Medrol 80 mg ND#[id number]-Wdobjbsn Reviewed 09/02/2015 12:00 AM Toradol 60 Mg ND#7907-4230-67 Reviewed 09/02/2015 12:00 AM Phenergan, Up to 50 Mg RHC Medicaid Reviewed 09/16/2015 12:00 AM Toradol 60 Mg [facility]#9571-6323-15 Reviewed 09/16/2015 12:00 AM Phenergan Up to 50 mg RHC Medicare Reviewed 05/11/2011 12:00 AM N BLOCK INJ OCCIPITAL Reviewed 05/11/2011 12:00 AM Kenalog Np-[address]-20 ANNA Reviewed 11/13/2015 12:00 AM ASSAY OF [...] INJ SC/IM Reviewed 07/08/2011 12:00 AM Toradol,15mg [facility]#[id number], Brunildaer Reviewed 07/08/2011 12:00 AM Phenergan 50 Mg Im [facility] [id number] [facility] Reviewed 01/21/2016 12:00 AM ECG MONIT/REPRT UP TO 48 HRS Returned 08/02/2011 12:00 AM THER/PROPH/DIAG INJ SC/IM Reviewed 08/02/2011 12:00 AM Decadron 1 mg [facility]#[id number] (Jr) Reviewed 08/02/2011 12:00 AM Depo-Medrol 80 mg [facility]#[id number]-Amztliez Reviewed 03/05/2016 12:00 AM COMPLETE CBC W/AUTO DIFF WBC Reviewed 03/05/2016 12:00 AM STREP A ASSAY W/OPTIC Reviewed 03/05/2016 12:00 AM C-REACTIVE PROTEIN Reviewed 03/18/2016 12:00 AM [facility] MEDICARE - flu vaccine administration Reviewed 03/18/2016 [...] Reviewed 09/27/2011 12:00 AM Depo-Medrol 80 mg NDC#[id number]-Kmuyemfw Reviewed 09/27/2011 12:00 AM Depo-Medrol 40 mg NDC#[id number] Reviewed 07/06/2016 12:00 AM CHEST X-RAY 4/> [...] Reviewed 12/23/2011 12:00 AM Decadron 1 mg NDC#[id number] (Jr) Reviewed 12/23/2011 12:00 AM Depo-Medrol 80 mg NDC#[id number]-Aetwwglk Reviewed 11/02/2016 11:45 AM URINALYSIS AUTO W/O SCOPE Reviewed 02/09/2012 12:00 AM THER/PROPH/DIAG INJ SC/IM Reviewed 02/09/2012 12:00 AM Decadron 1 mg NDC#[id number] (Jr) Reviewed 02/09/2012 12:00 AM Depo-Medrol 80 mg ND#[id number]-Avixkgne Reviewed 03/15/2012 12:00 AM N BLOCK INJ OCCIPITAL Reviewed 03/15/2012 12:00 AM Kenalog Ej-[address]-20 ANNA Reviewed 04/11/2012 12:00 AM COMPLETE CBC W/AUTO DIFF WBC Reviewed 04/11/2012 12:00 AM COMPREHEN METABOLIC PANEL Reviewed 04/11/2012 12:00 AM LIPID PANEL Reviewed 04/11/2012 12:00 AM ASSAY THYROID STIM HORMONE Reviewed 04/11/2012 12:00 AM DESTRUCT PREMALG LES 2-14 Reviewed 06/20/2012 12:00 AM THER/PROPH/DIAG INJ SC/IM Reviewed 06/20/2012 12:00 AM Decadron, Per 1 Mg ND# [address]-87 Reviewed 06/20/2012 12:00 AM Depo-Medrol, Per 80 Mg ND#7849-5967-40 Reviewed 09/06/2012 12:00 AM N BLOCK INJ OCCIPITAL Reviewed 09/06/2012 12:00 AM Kenalog Yl-[address]-20 ANNA Reviewed 09/06/2012 12:00 AM X-RAY EXAM RIBS UNI 2 VIEWS Reviewed 09/26/2012 12:00 AM THER/PROPH/DIAG INJ SC/IM Reviewed 09/26/2012 12:00 AM Decadron, Per 1 Mg ND# [address]-28 Reviewed 09/26/2012 12:00 AM Depo-Medrol, Per 80 Mg ND#9358-3651-61 Reviewed 10/03/2012 12:00 AM URINALYSIS AUTO W/O SCOPE Reviewed 10/03/2012 12:00 AM THER/PROPH/DIAG INJ SC/IM Reviewed 10/03/2012 12:00 AM Toradol 60 Mg ND#4507-3013-39 Reviewed 10/03/2012 12:00 AM Phenergan, 25Mg ND#9731-8446-14 Reviewed 10/19/2012 12:00 AM N BLOCK INJ OCCIPITAL Reviewed 10/19/2012 12:00 AM Kenalog, Per 10 Mg ND#4507-7881-41 Reviewed 10/19/2012 12:00 AM Toradol 30 Mg ND#8050-3902-71 Reviewed 10/19/2012 12:00 AM THER/PROPH/DIAG INJ SC/IM Reviewed 10/31/2012 12:00 AM COMPLETE CBC W/AUTO DIFF WBC Reviewed 10/31/2012 12:00 AM COMPREHEN METABOLIC PANEL Reviewed 10/31/2012 12:00 AM LIPID PANEL Reviewed 10/31/2012 12:00 AM ELECTROCARDIOGRAM COMPLETE Reviewed 11/03/2012 12:[address] THORAX W/O & W/DYE Reviewed 11/08/2012 12:00 AM N BLOCK INJ OCCIPITAL Reviewed 11/08/2012 12:00 AM Kenalog Cf-[address]-20 ANNA Reviewed 11/27/2012 12:00 AM COMPLETE CBC [...] Decadron, Per 1 Mg [facility]# [address]-24 Reviewed 01/25/2013 12:00 AM Depo-Medrol, Per 80 Mg [facility]#4072-6030-86 Reviewed 01/26/2013 12:00 AM IMMUNOTHERAPY ONE INJECTION [...] Decadron, Per 1 Mg [facility]# [address]-32 Reviewed 05/16/2013 12:00 AM Depo-Medrol, Per 80 Mg [facility]#7195-1905-26 Reviewed 05/31/2013 12:00 AM IMMUNOTHERAPY INJECTIONS Reviewed 06/08/2013 12:00 AM IMMUNOTHERAPY INJECTIONS Reviewed 06/14/2013 12:00 AM IMMUNOTHERAPY INJECTIONS Reviewed 06/28/2013 12:00 AM IMMUNOTHERAPY INJECTIONS Reviewed 07/12/2013 12:00 AM X-RAY EXAM RIBS UNI 2 VIEWS Reviewed 07/18/2013 12:00 AM Toradol 60 Mg [facility]#3122-3730-34 Reviewed 07/18/2013 12:00 AM THER/PROPH/DIAG INJ SC/IM Reviewed 08/23/2013 12:00 AM COMPLETE CBC W/AUTO DIFF WBC Reviewed 08/23/2013 12:00 AM COMPREHEN METABOLIC PANEL Reviewed 08/23/2013 12:00 AM LIPID PANEL Reviewed 08/31/2013 12:00 AM X-RAY EXAM OF LOWER LEG Reviewed 09/04/2013 12:00 AM IMMUNOTHERAPY INJECTIONS Reviewed 09/14/2013 12:00 AM THER/PROPH/DIAG INJ SC/IM Reviewed 09/14/2013 12:00 AM Decadron, Per 1 Mg [facility]# [address]-81 Reviewed 09/14/2013 12:00 AM Depo-Medrol, Per 80 Mg [facility]#6205-9711-49 Reviewed 09/20/2013 12:00 AM IMMUNOTHERAPY INJECTIONS Reviewed [...] INJ OCCIPITAL Reviewed 12/10/2009 12:00 AM Kenalog Xf-[address]-20 ANNA Reviewed 12/16/2009 12:00 AM HIV-1ANTIBODY Reviewed 12/16/2009 12:00 AM COMPLETE CBC W/AUTO DIFF WBC Reviewed 12/16/2009 12:00 AM METABOLIC PANEL TOTAL CA Reviewed 12/16/2009 12:00 AM Type and screen Reviewed 12/16/2009 12:00 AM PROTHROMBIN TIME Reviewed 12/16/2009 12:00 AM THROMBOPLASTIN TIME PARTIAL Reviewed 03/18/2010 12:00 AM DRAIN/INJ JOINT/BURSA W/O US Reviewed 03/18/2010 12:00 AM Kenalog Os-[address]-20 ANNA Reviewed 11/21/2013 12:00 AM RADEX HAND MINIMUM 3 VIEWS Reviewed 06/03/2010 12:00 AM INJ TRIGGER POINT 1/2 MUSCL Reviewed 06/03/2010 12:00 AM Kenalog per 10Mg -[facility]#[address]-13(Niall) Reviewed 12/05/2013 12:00 AM COMPLETE CBC W/AUTO [...] Reviewed 07/23/2010 12:00 AM Kenalog per 10Mg Im-[facility]#[address]-79(Niall) Reviewed 2014 12:00 AM COMPLETE CBC W/AUTO [...] INJ OCCIPITAL Reviewed 10/01/2010 12:00 AM Quentin Ws-[address]-20 ANNA Reviewed 07/25/2014 12:00 AM THER/PROPH/DIAG INJ [...] Quant,IgM <0.80 RMSF , IgG, EIA Negative [facility] Spotted Fever,IgM 0.51 E. chaffeensis [...] 141 Influenza 04/24/2014 sanofi pasteur PMC Fluzone [id number] Intramuscular Left Upper Arm 02/27/2014 01/15/2014 141 Influenza 02/13/2015 sanofi pasteur PMC Fluzone [id number] Intramuscular Left Deltoid 02/13/2015 01/03/2015 140 Tdap 06/06/2015 [employer] SKB BOOSTRIX [id number] Intramuscular Left Deltoid 06/06/2015 07/23/2014 115 Influenza 03/18/2016 sanofi pasteur PMC Fluzone [id number] Intramuscular Left Deltoid 03/17/2016 01/03/2015 141 History [...] Group Number Start Date Medicare RHC Medicare [facility] [id number] N/A Health system - [facility] Comm [id number] N/A Medicare Part A Medicare - Lab/Xray [id number] N/A Medicare Part B Medicare [place] [id number] Monday, February 28, 2000 [place] [facility] [place] [id number] Tuesday, November 10, 2009 Medicare Part A Medicare Part A [id number] N/A [place] [employer] Prog - [place] [employer] Prog - RHC [id number] May [facility] Plan of [id number] Wednesday, May 30, 2012 History of Encounters Visit Date Visit Type Provider 11/17/2016 Office visit Kaylynn Mendez FOXER 11/05/2016 Office visit Riccardo Cardoza MD 11/02/2016 Office visit Heena Dumont MD 10/06/2016 Office visit Kaylynn Mendez FOXER 09/22/2016 Office visit Heena Dumont MD 09/09/2016 Office visit Kaylynn Mendez FOXER 08/27/2016 Office visit Riccardo Cardoza MD 08/26/2016 Office visit Heena Dumont MD 07/09/2016 Office visit Riccardo Cardoza MD 07/06/2016 Office visit Heena Dumont MD 06/18/2016 Office visit Kaylynn Mendez FOXER 06/07/2016 Office visit Sundeep Russell FOXER 06/04/2016 Office visit Heena Dumont MD 05/13/2016 Office visit Heena Dumont MD 05/03/2016 Office visit Heena Dumont MD 04/26/2016 Office visit Kaylynn Mendez FOXER 04/14/2016 Office visit Heena Dumont MD 04/13/2016 Office visit Kaylynn Mendez FOXER 04/02/2016 Office visit Lena El FOXER 04/02/2016 Office visit Heena Dumont MD 03/26/2016 Office visit Yesica Falcon FOXER 03/17/2016 Office visit Heena Dumont MD 03/05/2016 Office visit Kaylynn Mendez FOXER 02/16/2016 Office visit Heena Dumont MD 02/14/2016 Office visit Na Jones FOXER 01/16/2016 Office visit Heena Dumont MD 12/16/2015 Office visit Heena Dumont MD 11/24/2015 Office visit Kaylynn Mendez FOXER 11/18/2015 Office visit Heena Dumont MD 11/03/2015 Office visit Sundeep Galloran FOXER 10/20/2015 Office visit Kaylynn Walker FOXER 09/23/2015 Office visit Kaylynn Walker FOXER 09/16/[address] Pepe Figueroa MD 09/02/2015 Office visit Kaylynn Walker FOXER 09/01/2015 Office visit Kaylynn Walker FOXER 07/30/2015 Office visit Heena Dumont MD 07/15/2015 Office visit Kaylynn Walker FOXER 07/04/2015 Office visit Heena Dumont MD 06/06/2015 Office visit Heena Dumont MD 06/06/2015 Office visit Kaylynn Walker FOXER 06/02/2015 Office visit Kaylynn Walker FOXER 05/26/2015 Office visit Kaylynn Walker FOXER 05/20/2015 Office visit Kaylynn Walker FOXER 05/08/2015 Office visit Heena Dumont MD 05/06/2015 Office visit Kaylynn Walker FOXER 04/29/2015 Office visit Kaylynn Walker FOXER 03/27/2015 Voided Brittni Yanez FOXER 03/21/2015 Office visit Heena Dumont MD 03/12/2015 Office visit Kaylynn Mendez FOXER 02/26/2015 Office visit Brittni Yanez FOXER 02/13/2015 Office visit Heena Dumont MD 01/15/2015 Office visit Brittni Yanez FOXER 01/13/2015 Office visit Heena Dumont MD 01/08/[address] Carol Fowler MD 01/01/2015 Office visit Brittni Yanez FOXER 12/13/2014 Office visit Heena Dumont MD 11/27/2014 Office visit Kaylynn Mendez FOXER 11/14/2014 Office visit Heena Dumont MD 10/18/2014 Office visit Heena Dumont MD 10/17/2014 [facility] John Hoskins MD 10/09/2014 Office visit Heena Dumont MD 09/25/2014 Office visit Heena Dumont MD 09/17/2014 Office visit Kaylynn Mendez FOXER 09/04/2014 Office visit Heena Dumont MD 08/28/2014 Office visit Kaylynn Mendez FOXER 08/23/2014 [facility] John Hoskins MD 08/01/2014 Office visit Kaylynn Mendez FOXER 07/29/2014 Office visit Heena Dumont MD 07/25/2014 Nurse visit Heena Dumont MD 07/17/2014 Office visit Kaylynn Mendez FOXER 07/11/2014 Office visit Heena Dumont MD 07/01/2014 Office visit Heena Dumont MD 06/25/2014 Office visit Kaylynn Mendez FOXER 06/12/2014 Office visit Kaylynn Mendez FOXER 06/06/2014 Office visit Kaylynn Mendez FOXER 05/27/2014 Office visit Heena Dumont MD 04/20/2014 Office visit Yesica Falcon FOXER 03/29/2014 Office visit Na Jones FOXER 03/15/2014 Office visit Heena Dumont MD 2014 Office visit Heena Dumont MD 2014 [facility] Eliseo Hoskins MD 02/27/2014 Nurse visit Heena Dumont MD 02/13/2014 Office visit Lena El FOXER 02/07/2014 Office visit Heena Dumont MD 02/03/2014 Office visit Na Jones FOXER 01/30/2014 Office visit Kaylynn Mendez FOXER 01/24/2014 Office visit Sundeep Russell FOXER 01/16/2014 Office visit Kaylynn Mendez FOXER 01/10/2014 Nurse visit Kaylynn Mendez FOXER 01/08/2014 Office visit Kaylynn Walker FOXER 12/05/2013 Office visit Kaylynn Mendez FOXER 11/21/2013 Office visit Kaylynn Mendez FOXER 10/23/2013 Office visit Brittni Yanez FOXER 10/17/2013 Nurse visit Heena Dumont MD 10/12/2013 Office visit Kaylynn Mendez FOXER 10/02/2013 Office visit Heena Dumont MD 09/20/2013 Nurse visit Kaylynn Mendez FOXER 09/20/2013 Voided Heena Dumont MD 09/14/2013 Office visit Kaylynn Mendez FOXER 09/05/2013 Office visit Sundeep Russell FOXER 09/04/2013 Nurse visit Kaylynn Walker FOXER 08/31/2013 Office visit Kaylynn Mendez FOXER 08/23/2013 Office visit Heena Dumont MD 08/10/2013 Office visit Kaylynn Mendez FOXER 07/25/2013 Office visit Kaylynn Walker FOXER 07/18/2013 Office visit Kaylynn Walker FOXER 07/12/2013 Office visit Kaylynn Walker FOXER 06/28/2013 Nurse visit Kaylynn Walker FOXER 06/14/2013 Nurse visit Kaylynn Walker FOXER 06/08/2013 Nurse visit Kaylynn Walker FOXER 05/31/2013 Nurse visit Chadd Norris DO 05/18/2013 Office visit Terese Davidson MD 05/16/2013 Office visit Kaylynn Walker FOXER 05/09/2013 Office visit Kaylynn Mendez FOXER 04/29/2013 [facility] John Hoskins MD 04/25/2013 Nurse visit Kaylynn Walker FOXER 04/17/2013 Office visit Kaylynn Walker FOXER 04/03/2013 Nurse visit Kaylynn Walker FOXER 04/03/2013 Office visit Terese Davidson MD 03/28/2013 Office visit Sundeep Russell FOXER 03/21/2013 Office visit Kaylynn Mendez FOXER 03/20/2013 Office visit Terese Davidson MD 03/14/2013 Nurse visit Kaylynn Walker FOXER 03/05/2013 Nurse visit Kaylynn Walker FOXER 02/19/2013 Office visit Terese Davidson MD 02/16/2013 Nurse visit Kaylynn Walker FOXER 02/09/2013 Office visit Sundeep Russell FOXER 02/08/2013 Nurse visit Kaylynn Walker FOXER 02/01/2013 Nurse visit Kaylynn Walker FOXER 01/26/2013 Nurse visit Sabrina Andrea GUARD IMMIGRATION 01/25/2013 Office visit Kaylynn Mendez FOXER 01/22/2013 Office visit Yoan Castaneda MD 01/18/2013 Nurse visit Kaylynn Walker FOXER 01/11/2013 Nurse visit Kaylynn Walker FOXER 01/05/2013 Nurse visit Kaylynn Walker FOXER 12/29/2012 Office visit Kaylynn Walker FOXER 11/27/2012 Office visit Kaylynn Mendez FOXER 11/08/2012 Office visit Odell Tierney MD 11/08/2012 Voided Odell Tierney MD 11/07/2012 Office visit Kaylynn Mendez FOXER 10/31/2012 [facility] John Hoskins MD 10/31/2012 Office visit Kaylynn Walker FOXER 10/19/2012 Office visit Genoveva Ayala FOXER 10/10/2012 Office visit Kaylynn Walker FOXER 10/03/2012 Office visit Kaylynn Walker FOXER 09/26/2012 Office visit Kaylynn Walker FOXER 09/06/2012 Office visit Kaylynn Mendez FOXER 09/06/2012 Office visit Odell Tierney MD 08/31/2012 Voided Kaylynn Mendez FOXER 07/28/2012 Office visit Kaylynn Mendez FOXER 07/27/2012 Office visit David Joyner DO 07/20/2012 [facility] David Joyner DO 07/13/2012 [facility] David Joyner DO 07/11/2012 Office visit Kaylynn Mendez FOXER 06/27/2012 [facility] Odell Tierney MD 06/21/2012 Office visit David Joyner DO 06/21/2012 Office visit Odell Tierney MD 06/20/2012 Office visit Brittni Yanez FOXER 06/06/2012 Office visit Odell Tierney MD 05/03/2012 Office visit Kaylynn Mendez FOXER 04/28/2012 Office visit Brittni Yanez FOXER 04/11/2012 Office visit Kaylynn Andrea FOXER 04/06/2012 [facility] John Hoskins MD 03/30/2012 Office visit Kaylynn Walker FOXER 03/15/2012 Office visit Kaylynn Walker FOXER 03/15/2012 Office visit Odell Tierney MD 02/09/2012 Office visit Kaylynn Andrea FOXER 12/23/2011 Office visit Kaylynn Walker FOXER 11/02/2011 Office visit Kaylynn Walker FOXER 10/14/2011 Office visit Kaylynn Walker FOXER 09/27/2011 Office visit Kaylynn Walker FOXER 08/19/2011 [facility] John Hoskins MD 08/18/2011 [facility] John Hoskins MD 08/18/2011 Office visit Kaylynn Mendez FOXER 08/02/2011 Office visit Kaylynn Walker FOXER 07/08/2011 Office visit Kaylynn Andrea FOXER 07/05/2011 Office visit Odell Tierney MD 06/15/2011 Office visit Kaylynn Mendez FOXER 05/14/2011 Office visit Kaylynn Mendez FOXER 05/11/2011 Office visit Odell Tierney MD 04/28/2011 Office visit Kaylynn Mendez FOXER 03/02/2011 Office visit Chadd Norris DO 02/17/2011 [...]
--- OUTSIDE RECORDS SUMMARY | 2018-05-09 17:51 | XMS REPORT ---
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 OneTouch Delica Lancets 33 [facility] 01/21/2016 use as directed cetirizine 10 [...] to 80 due to recent Lipid panel MS Contin 30 mg oral tablet extended release 10/06/2016 11/05/2016 take 0.5 tablet by oral route every 12 hours for 30 days oxycodone 5 mg oral tablet 10/06/2016 take [...] route every 12 hours for 7 days Name Start Date Expiration [...] 08/27/2014 use as directed for 99 days [place] 5-325 mg oral tablet 06/17/2014 06/27/2014 take [...] a day as needed for 30 days gdzseylp-xhnhjzsvp-UE 3.5-10,000-1 mg/mL-unit/mL-% otic drops,suspension 201401/08/2015 instill 4 [...] Ok for similiar substitution or individual components. wjavhazj-zicpxizyj-TV 3.5-10,000-1 mg/mL-unit/mL-% otic drops,suspension 201607/23/2016 instill 4 [...] HC BMI BSA BMI Percentile O2 Sat(%) 10/06/2016 11:43:00 AM 122 mmHg 75 mmHg [...] Reviewed 04/28/2011 12:00 AM Decadron 1 mg ND#[id number] (Jr) Reviewed 04/28/2011 12:00 AM Depo-Medrol 80 mg NDC#[id number]-Ipzsmwny Reviewed 09/02/2015 12:00 AM Toradol 60 Mg NDC#2785-4797-94 Reviewed 09/02/2015 12:00 AM Phenergan, Up to 50 Mg RHC Medicaid Reviewed 09/16/2015 12:00 AM Toradol 60 Mg NDC#5338-1159-33 Reviewed 09/16/2015 12:00 AM Phenergan Up to 50 mg RHC Medicare Reviewed 05/11/2011 12:00 AM N BLOCK INJ OCCIPITAL Reviewed 05/11/2011 12:00 AM Kenalog Nz-[address]-20 ANNA Reviewed 11/13/2015 12:00 AM ASSAY OF [...] INJ SC/IM Reviewed 07/08/2011 12:00 AM Toradol,15mg [facility]#[id number], [place] Reviewed 07/08/2011 12:00 AM Phenergan 50 Mg Im [facility] 4523-3365-77 [place] Reviewed 01/21/2016 12:00 AM ECG MONIT/REPRT UP TO 48 HRS Returned 08/02/2011 12:00 AM THER/PROPH/DIAG INJ SC/IM Reviewed 08/02/2011 12:00 AM Decadron 1 mg [facility]#[id number] (Jr) Reviewed 08/02/2011 12:00 AM Depo-Medrol 80 mg [facility]#[id number]-Pbdgwudq Reviewed 03/05/2016 12:00 AM COMPLETE CBC W/AUTO DIFF WBC Reviewed 03/05/2016 12:00 AM STREP A ASSAY W/OPTIC Reviewed 03/05/2016 12:00 AM C-REACTIVE PROTEIN Reviewed 03/18/2016 12:00 AM [facility] [employer] - flu vaccine administration Reviewed [...] Reviewed 09/27/2011 12:00 AM Depo-Medrol 80 mg ND#[id number]-Lssgpdaa Reviewed 09/27/2011 12:00 AM Depo-Medrol 40 mg NDC#[id number] Reviewed 07/06/2016 12:00 AM CHEST X-RAY 4/> [...] Reviewed 12/23/2011 12:00 AM Decadron 1 mg NDC#[id number] (Jr) Reviewed 12/23/2011 12:00 AM Depo-Medrol 80 mg NDC#[id number]-Jnlvtltv Reviewed 02/09/2012 12:00 AM THER/PROPH/DIAG INJ SC/IM Reviewed 02/09/2012 12:00 AM Decadron 1 mg NDC#[id number] (Jr) Reviewed 02/09/2012 12:00 AM Depo-Medrol 80 mg NDC#[id number]-Pfryuvqk Reviewed 03/15/2012 12:00 AM N BLOCK INJ OCCIPITAL Reviewed 03/15/2012 12:00 AM Kenalog Or-[address]-20 ANNA Reviewed 04/11/2012 12:00 AM COMPLETE CBC W/AUTO DIFF WBC Reviewed 04/11/2012 12:00 AM COMPREHEN METABOLIC PANEL Reviewed 04/11/2012 12:00 AM LIPID PANEL Reviewed 04/11/2012 12:00 AM ASSAY THYROID STIM HORMONE Reviewed 04/11/2012 12:00 AM DESTRUCT PREMALG LES 2-14 Reviewed 06/20/2012 12:00 AM THER/PROPH/DIAG INJ SC/IM Reviewed 06/20/2012 12:00 AM Decadron, Per 1 Mg ND# [address]-00 Reviewed 06/20/2012 12:00 AM Depo-Medrol, Per 80 Mg ND#2229-6956-35 Reviewed 09/06/2012 12:00 AM N BLOCK INJ OCCIPITAL Reviewed 09/06/2012 12:00 AM Kenalog Vh-[address]-20 ANNA Reviewed 09/06/2012 12:00 AM X-RAY EXAM RIBS UNI 2 VIEWS Reviewed 09/26/2012 12:00 AM THER/PROPH/DIAG INJ SC/IM Reviewed 09/26/2012 12:00 AM Decadron, Per 1 Mg [facility]# [address]-01 Reviewed 09/26/2012 12:00 AM Depo-Medrol, Per 80 Mg ND#5154-7132-76 Reviewed 10/03/2012 12:00 AM URINALYSIS AUTO W/O SCOPE Reviewed 10/03/2012 12:00 AM THER/PROPH/DIAG INJ SC/IM Reviewed 10/03/2012 12:00 AM Toradol 60 Mg ND#7676-9303-98 Reviewed 10/03/2012 12:00 AM Phenergan, 25Mg [facility]#8229-6522-68 Reviewed 10/19/2012 12:00 AM N BLOCK INJ OCCIPITAL Reviewed 10/19/2012 12:00 AM Kenalog, Per 10 Mg [facility]#4270-3397-66 Reviewed 10/19/2012 12:00 AM Toradol 30 Mg [facility]#2201-1185-90 Reviewed 10/19/2012 12:00 AM THER/PROPH/DIAG INJ SC/IM Reviewed 10/31/2012 12:00 AM COMPLETE CBC W/AUTO DIFF WBC Reviewed 10/31/2012 12:00 AM COMPREHEN METABOLIC PANEL Reviewed 10/31/2012 12:00 AM LIPID PANEL Reviewed 10/31/2012 12:00 AM ELECTROCARDIOGRAM COMPLETE Reviewed 11/03/2012 12:[address] THORAX W/O & W/DYE Reviewed 11/08/2012 12:00 AM N BLOCK INJ OCCIPITAL Reviewed 11/08/2012 12:00 AM Kenalog Et-[address]-20 ANNA Reviewed 11/27/2012 12:00 AM COMPLETE CBC [...] 01/25/2013 12:00 AM Decadron, Per 1 Mg [facility]# [address]-74 Reviewed 01/25/2013 12:00 AM Depo-Medrol, Per 80 Mg ND#1567-9451-69 Reviewed 01/26/2013 12:00 AM IMMUNOTHERAPY ONE INJECTION [...] 12:00 AM Decadron, Per 1 Mg ND# [address]-05 Reviewed 05/16/2013 12:00 AM Depo-Medrol, Per 80 Mg ND#2711-9311-58 Reviewed 05/31/2013 12:00 AM IMMUNOTHERAPY INJECTIONS Reviewed 06/08/2013 12:00 AM IMMUNOTHERAPY INJECTIONS Reviewed 06/14/2013 12:00 AM IMMUNOTHERAPY INJECTIONS Reviewed 06/28/2013 12:00 AM IMMUNOTHERAPY INJECTIONS Reviewed 07/12/2013 12:00 AM X-RAY EXAM RIBS UNI 2 VIEWS Reviewed 07/18/2013 12:00 AM Toradol 60 Mg [facility]#7191-2432-71 Reviewed 07/18/2013 12:00 AM THER/PROPH/DIAG INJ SC/IM Reviewed 08/23/2013 12:00 AM COMPLETE CBC W/AUTO DIFF WBC Reviewed 08/23/2013 12:00 AM COMPREHEN METABOLIC PANEL Reviewed 08/23/2013 12:00 AM LIPID PANEL Reviewed 08/31/2013 12:00 AM X-RAY EXAM OF LOWER LEG Reviewed 09/04/2013 12:00 AM IMMUNOTHERAPY INJECTIONS Reviewed 09/14/2013 12:00 AM THER/PROPH/DIAG INJ SC/IM Reviewed 09/14/2013 12:00 AM Decadron, Per 1 Mg [facility]# [address]-86 Reviewed 09/14/2013 12:00 AM Depo-Medrol, Per 80 Mg [facility]#2517-8508-04 Reviewed 09/20/2013 12:00 AM IMMUNOTHERAPY INJECTIONS Reviewed [...] INJ OCCIPITAL Reviewed 12/10/2009 12:00 AM Kenalog Xo-[address]-20 ANNA Reviewed 12/16/2009 12:00 AM HIV-1ANTIBODY Reviewed 12/16/2009 12:00 AM COMPLETE CBC W/AUTO DIFF WBC Reviewed 12/16/2009 12:00 AM METABOLIC PANEL TOTAL CA Reviewed 12/16/2009 12:00 AM Type and screen Reviewed 12/16/2009 12:00 AM PROTHROMBIN TIME Reviewed 12/16/2009 12:00 AM THROMBOPLASTIN TIME PARTIAL Reviewed 03/18/2010 12:00 AM DRAIN/INJ JOINT/BURSA W/O US Reviewed 03/18/2010 12:00 AM Kenalog Ce-[address]-20 ANNA Reviewed 11/21/2013 12:00 AM RADEX HAND MINIMUM 3 VIEWS Reviewed 06/03/2010 12:00 AM INJ TRIGGER POINT 1/2 MUSCL Reviewed 06/03/2010 12:00 AM Kenalog per 10Mg Im-Ndc#[address]-52(Niall) Reviewed 12/05/2013 12:00 AM COMPLETE CBC W/AUTO [...] Reviewed 07/23/2010 12:00 AM Kenalog per 10Mg Im-Ndc#[address]-00(Niall) Reviewed 2014 12:00 AM COMPLETE CBC W/AUTO [...] INJ OCCIPITAL Reviewed 10/01/2010 12:00 AM Kenalog Xn-[address]-20 ANNA Reviewed 07/25/2014 12:00 AM THER/PROPH/DIAG INJ [...] <0.80 RMSF , IgG, EIA Negative Dejuan [facility] Spotted Fever,IgM 0.51 E. chaffeensis (HME) IgGTiter [...] mg/dL 10/06/2016 1:32 PM STREP SCREEN NEGATIVE History Of Immunizations Name Date Admin Mfg Name Mfg Code Trade Name Lot# Route Inj Vis Given Vis Pub CVX Influenza 03/30/2011 Not Entered NE Not Entered Not Entered Not Entered 03/31/2011 05/30/2016 141 Influenza 04/24/2014 sanofi pasteur PMC Fluzone [id number] Intramuscular Left Upper Arm 02/27/2014 01/15/2014 141 Influenza 02/13/2015 sanofi pasteur PMC Fluzone [id number] Intramuscular Left Deltoid 02/13/2015 01/03/2015 140 Tdap 06/06/2015 [employer]oSmith[employer]line SKB BOOSTRIX [id number] Intramuscular Left Deltoid 06/06/2015 07/23/2014 115 Influenza 03/18/2016 sanofi pasteur PMC Fluzone [id number] Intramuscular Left Deltoid 03/17/2016 01/03/2015 141 History [...] Muscle Spasm Jul 05 2011 1:58PM Headache b 2011 1:38PM Heart Sound Abnormality Feb 9 [...] Feb 2 2014 3:51PM Elevated liver enzymes b 2014 [...] other allergic trigger Oct 06 2016 11:45AM Payers Insurance Name Company Name Plan Name Plan Number Policy Number Policy Group Number Start Date Medicare [employer] Medicare [employer] [facility] [id number] N/A [facility] Comm [id number] N/A Medicare Part A Medicare - Lab/Xray [id number] N/A Medicare Part B Medicare Of [place] [id number] Monday, February 28, 2000 [place] [employer] [place] [employer] [place] [id number] Tuesday, November 10, 2009 Medicare Part A Medicare Part A [id number] N/A [place] [employer] [place] [employer] [id number] May [facility] Plan of [id number] Wednesday, May 30, 2012 History of Encounters Visit Date Visit Type Provider 10/06/2016 Office visit Kaylynn Mendez ROOM SERVICE WAITER 09/22/2016 Office visit Heena Dumont MD 09/09/2016 Office visit Kaylynn Mendez ROOM SERVICE WAITER 08/27/2016 Office visit Riccardo Cardoaz MD 08/26/2016 Office visit Heena Dumont MD 07/09/2016 Office visit Riccardo Cardoza MD 07/06/2016 Office visit Heena Dumont MD 06/18/2016 Office visit Kaylynn Mendez ROOM SERVICE WAITER 06/07/2016 Office visit Sundeep Russell ROOM SERVICE WAITER 06/04/2016 Office visit Heena Dumont MD 05/13/2016 Office visit Heena Dumont MD 05/03/2016 Office visit Heena Dumont MD 04/26/2016 Office visit Kaylnyn Mendez ROOM SERVICE WAITER 04/14/2016 Office visit Heena Dumont MD 04/13/2016 Office visit Kaylynn Mendez ROOM SERVICE WAITER 04/02/2016 Office visit Lena El ROOM SERVICE WAITER 04/02/2016 Office visit Heena Dumont MD 03/26/2016 Office visit Yesica Falcon ROOM SERVICE WAITER 03/17/2016 Office visit Heena Dumont MD 03/05/2016 Office visit Kaylynn Mendez ROOM SERVICE WAITER 02/16/2016 Office visit Heena Dumont MD 02/14/2016 Office visit Na Jones ROOM SERVICE WAITER 01/16/2016 Office visit Heena Dumont MD 12/16/2015 Office visit Heena Dumont MD 11/24/2015 Office visit Kaylynn Mendez ROOM SERVICE WAITER 11/18/2015 Office visit Heena Dumont MD 11/03/2015 Office visit Sundeep Russell ROOM SERVICE WAITER 10/20/2015 Office visit Kaylynn Mendez ROOM SERVICE WAITER 09/23/2015 Office visit Kaylynn Mendez ROOM SERVICE WAITER 09/16/[address] Pepe Figueroa MD 09/02/2015 Office visit Kaylynn Mendez ROOM SERVICE WAITER 09/01/2015 Office visit Kaylynn Mendez ROOM SERVICE WAITER 07/30/2015 Office visit Heena Dumont MD 07/15/2015 Office visit Kaylynn Mendez ROOM SERVICE WAITER 07/04/2015 Office visit Heena Dumont MD 06/06/2015 Office visit Heena Dumont MD 06/06/2015 Office visit Kaylynn Walker ROOM SERVICE WAITER 06/02/2015 Office visit Kaylynn Walker ROOM SERVICE WAITER 05/26/2015 Office visit Kaylynn Walker ROOM SERVICE WAITER 05/20/2015 Office visit Kaylynn Walker ROOM SERVICE WAITER 05/08/2015 Office visit Heena Dumont MD 05/06/2015 Office visit Kaylynn Walker ROOM SERVICE WAITER 04/29/2015 Office visit Kaylynn Walker ROOM SERVICE WAITER 03/27/2015 Voided Brittni Yanez ROOM SERVICE WAITER 03/21/2015 Office visit Heena Dumont MD 03/12/2015 Office visit Kaylynn Mendez ROOM SERVICE WAITER 02/26/2015 Office visit Brittni Yanez ROOM SERVICE WAITER 02/13/2015 Office visit Heena Dumont MD 01/15/2015 Office visit Brittni Yanez ROOM SERVICE WAITER 01/13/2015 Office visit Heena Dumont MD 01/08/[address] Carol Fowler MD 01/01/2015 Office visit Brittni Yanez ROOM SERVICE WAITER 12/13/2014 Office visit Heena Dumont MD 11/27/2014 Office visit Kaylynn Mendez ROOM SERVICE WAITER 11/14/2014 Office visit Heena Dumont MD 10/18/2014 Office visit Heena Dumont MD 10/17/2014 Hospital John Hoskins MD 10/09/2014 Office visit Heena Dumont MD 09/25/2014 Office visit Heena Dumont MD 09/17/2014 Office visit Kaylynn Mendez ROOM SERVICE WAITER 09/04/2014 Office visit Heena Dumont MD 08/28/2014 Office visit Kaylynn Mendez ROOM SERVICE WAITER 08/23/2014 [facility] John Hoskins MD 08/01/2014 Office visit Kaylynn Mendez ROOM SERVICE WAITER 07/29/2014 Office visit Heena Dumont MD 07/25/2014 Nurse visit Heena Dumont MD 07/17/2014 Office visit Kaylynn Mendez ROOM SERVICE WAITER 07/11/2014 Office visit Heena Dumont MD 07/01/2014 Office visit Heena Dumont MD 06/25/2014 Office visit Kaylynn Mendez ROOM SERVICE WAITER 06/12/2014 Office visit Kaylynn Walker ROOM SERVICE WAITER 06/06/2014 Office visit Kaylynn Walker ROOM SERVICE WAITER 05/27/2014 Office visit Heena Dumont MD 04/20/2014 Office visit Yesica Falcon ROOM SERVICE WAITER 03/29/2014 Office visit Na Jones ROOM SERVICE WAITER 03/15/2014 Office visit Heena Dumont MD 2014 Office visit Heena Dumont MD 2014 [facility] John Hoskins MD 02/27/2014 Nurse visit Heena Dumont MD 02/13/2014 Office visit Lena El ROOM SERVICE WAITER 02/07/2014 Office visit Heena Dumont MD 02/03/2014 Office visit Na Jones ROOM SERVICE WAITER 01/30/2014 Office visit Kaylynn Walker ROOM SERVICE WAITER 01/24/2014 Office visit Sundeep Russell ROOM SERVICE WAITER 01/16/2014 Office visit Kaylynn Walker ROOM SERVICE WAITER 01/10/2014 Nurse visit Kaylynn Walker ROOM SERVICE WAITER 01/08/2014 Office visit Kaylynn Walker ROOM SERVICE WAITER 12/05/2013 Office visit Kaylynn Walker ROOM SERVICE WAITER 11/21/2013 Office visit Kaylynn Walker ROOM SERVICE WAITER 10/23/2013 Office visit Brittni Yanez ROOM SERVICE WAITER 10/17/2013 Nurse visit Heena Dumont MD 10/12/2013 Office visit Kaylynn Walker ROOM SERVICE WAITER 10/02/2013 Office visit Heena Dumont MD 09/20/2013 Nurse visit Kaylynn Mendez ROOM SERVICE WAITER 09/20/2013 Voided Heena Dumont MD 09/14/2013 Office visit Kaylynn Walker ROOM SERVICE WAITER 09/05/2013 Office visit Sundeep Russell ROOM SERVICE WAITER 09/04/2013 Nurse visit Kaylynn Walker ROOM SERVICE WAITER 08/31/2013 Office visit Kaylynn Walker ROOM SERVICE WAITER 08/23/2013 Office visit Heena Dumont MD 08/10/2013 Office visit Kaylynn Walker ROOM SERVICE WAITER 07/25/2013 Office visit Kaylynn Walker ROOM SERVICE WAITER 07/18/2013 Office visit Kaylynn Walker ROOM SERVICE WAITER 07/12/2013 Office visit Kaylynn Walker ROOM SERVICE WAITER 06/28/2013 Nurse visit Kaylynn Walker ROOM SERVICE WAITER 06/14/2013 Nurse visit Kaylynn Walker ROOM SERVICE WAITER 06/08/2013 Nurse visit Kaylynn Walker ROOM SERVICE WAITER 05/31/2013 Nurse visit Chadd Norris DO 05/18/2013 Office visit Terese Davidson MD 05/16/2013 Office visit Kaylynn Mendez ROOM SERVICE WAITER 05/09/2013 Office visit Kaylynn Walker ROOM SERVICE WAITER 04/29/2013 [facility] John Hoskins MD 04/25/2013 Nurse visit Kaylynn Walker ROOM SERVICE WAITER 04/17/2013 Office visit Kaylynn Walker ROOM SERVICE WAITER 04/03/2013 Nurse visit Kaylynn Mendez ROOM SERVICE WAITER 04/03/2013 Office visit Terese Davidson MD 03/28/2013 Office visit Sundeep Russell ROOM SERVICE WAITER 03/21/2013 Office visit Kaylynn Mendez ROOM SERVICE WAITER 03/20/2013 Office visit Terese Davidson MD 03/14/2013 Nurse visit Kaylynn Mendez ROOM SERVICE WAITER 03/05/2013 Nurse visit Kaylynn Mendez ROOM SERVICE WAITER 02/19/2013 Office visit Terese Davidson MD 02/16/2013 Nurse visit Kaylynn Andrea ROOM SERVICE WAITER 02/09/2013 Office visit Sundeep Russell ROOM SERVICE WAITER 02/08/2013 Nurse visit Kaylynn Andrea ROOM SERVICE WAITER 02/01/2013 Nurse visit Kaylynn Walker ROOM SERVICE WAITER 01/26/2013 Nurse visit Sabrina Andrea MEDICARE INTERVIEWER 01/25/2013 Office visit Kaylynn Mendez ROOM SERVICE WAITER 01/22/2013 Office visit Yoan Castaneda MD 01/18/2013 Nurse visit Kaylynn Walker ROOM SERVICE WAITER 01/11/2013 Nurse visit Kaylynn Walker ROOM SERVICE WAITER 01/05/2013 Nurse visit Kaylynn Walker ROOM SERVICE WAITER 12/29/2012 Office visit Kaylynn Andrea ROOM SERVICE WAITER 11/27/2012 Office visit Kaylynn Mendez ROOM SERVICE WAITER 11/08/2012 Office visit Odell Tierney MD 11/08/2012 Voided Odell Tierney MD 11/07/2012 Office visit Kaylynn Mendez ROOM SERVICE WAITER 10/31/2012 [facility] John Hoskins MD 10/31/2012 Office visit Kaylynn Mendez ROOM SERVICE WAITER 10/19/2012 Office visit Genoveva Ayala ROOM SERVICE WAITER 10/10/2012 Office visit Kaylynn Mendez ROOM SERVICE WAITER 10/03/2012 Office visit Kaylynn Mendez ROOM SERVICE WAITER 09/26/2012 Office visit Kaylynn Mendez ROOM SERVICE WAITER 09/06/2012 Office visit Kaylynn Mendez ROOM SERVICE WAITER 09/06/2012 Office visit Odell Tierney MD 08/31/2012 Voided Kaylynn Mendez ROOM SERVICE WAITER 07/28/2012 Office visit Kaylynn Mendez ROOM SERVICE WAITER 07/27/2012 Office visit David Joyner DO 07/20/2012 [facility] David Joyner DO 07/13/2012 [facility] David Joyner DO 07/11/2012 Office visit Kaylynn Mendez ROOM SERVICE WAITER 06/27/2012 [facility] Odell Tierney MD 06/21/2012 Office visit David Joyner DO 06/21/2012 Office visit Odell Tierney MD 06/20/2012 Office visit Brittni Yanez ROOM SERVICE WAITER 06/06/2012 Office visit Odell Tierney MD 05/03/2012 Office visit Kaylynn Mendez ROOM SERVICE WAITER 04/28/2012 Office visit Brittni Yanez ROOM SERVICE WAITER 04/11/2012 Office visit Kaylynn Mendez ROOM SERVICE WAITER 04/06/2012 [facility] John Hoskins MD 03/30/2012 Office visit Kaylynn Mendez ROOM SERVICE WAITER 03/15/2012 Office visit Kaylynn Mendez ROOM SERVICE WAITER 03/15/2012 Office visit Odell Tierney MD 02/09/2012 Office visit Kaylynn Mendez ROOM SERVICE WAITER 12/23/2011 Office visit Kaylynn Mendez ROOM SERVICE WAITER 11/02/2011 Office visit Kaylynn Mendez ROOM SERVICE WAITER 10/14/2011 Office visit Kaylynn Mendez ROOM SERVICE WAITER 09/27/2011 Office visit Kaylynn Mendez ROOM SERVICE WAITER 08/19/2011 Hospital John Hoskins MD 08/18/2011 Hospital John Hoskins MD 08/18/2011 Office visit Kaylynn Mendez ROOM SERVICE WAITER 08/02/2011 Office visit Kaylynn Mendez ROOM SERVICE WAITER 07/08/2011 Office visit Kaylynn Mendez ROOM SERVICE WAITER 07/05/2011 Office visit Odell Tierney MD 06/15/2011 Office visit Kaylynn Mendez ROOM SERVICE WAITER 05/14/2011 Office visit Kaylynn Mendez ROOM SERVICE WAITER 05/11/2011 Office visit Odell Tierney MD 04/28/2011 Office visit Kaylynn Andrea ROOM SERVICE WAITER 03/02/2011 Office visit Chadd Norris DO 02/17/2011 [...]
--- OUTSIDE RECORDS SUMMARY | 2018-05-09 17:55 | XMS REPORT ---
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 Name Role Phone Kaylynn Mendez PCP Unavailable [...] 08/27/2014 use as directed for 99 days Lonepine 5-325 mg oral tablet 06/17/2014 06/27/2014 take [...] a day as needed for 30 days seurlxby-uwqbejlyv-FM 3.5-10,000-1 mg/mL-unit/mL-% otic drops,suspension 201401/08/2015 instill 4 [...] Reviewed 04/28/2011 12:00 AM Decadron 1 mg NDC#[id number] (Jr) Reviewed 04/28/2011 12:00 AM Depo-Medrol 80 mg NDC#[id number]-Vlrrfxnh Reviewed 05/11/2011 12:00 AM N BLOCK INJ OCCIPITAL Reviewed 05/11/2011 12:00 AM Kenalog Eh-[address]-20 ANNA Reviewed 06/15/2011 12:00 AM COMPLETE CBC W/AUTO DIFF WBC Returned 06/15/2011 12:00 AM COMPREHEN METABOLIC PANEL Returned 07/08/2011 12:00 AM THER/PROPH/DIAG INJ SC/IM Reviewed 07/08/2011 12:00 AM Toradol,15mg NDC#[id number], Adilene Reviewed 07/08/2011 12:00 AM Phenergan 50 Mg Im Ndc 9614-8175-35 ALLIE Hoskins Reviewed 08/02/2011 12:00 AM THER/PROPH/DIAG INJ SC/IM Reviewed 08/02/2011 12:00 AM Decadron 1 mg NDC#[id number] (Jr) Reviewed 08/02/2011 12:00 AM Depo-Medrol 80 mg NDC#[id number]-Ygurggbh Reviewed 09/27/2011 12:00 AM THER/PROPH/DIAG INJ SC/IM Reviewed 09/27/2011 12:00 AM Depo-Medrol 80 mg NDC#[id number]-Nzlhahbz Reviewed 10/14/2011 12:00 AM X-RAY EXAM OF ABDOMEN Returned 10/14/2011 12:00 AM URINALYSIS AUTO W/O SCOPE Reviewed 12/23/2011 12:00 AM THER/PROPH/DIAG INJ SC/IM Reviewed 12/23/2011 12:00 AM Decadron 1 mg NDC#49762603814 (Jr) Reviewed 12/23/2011 12:00 AM Depo-Medrol 80 mg NDC#[id number]-Otmkwywf Reviewed 02/09/2012 12:00 AM THER/PROPH/DIAG INJ SC/IM Reviewed 02/09/2012 12:00 AM Decadron 1 mg NDC#[id number] (Jr) Reviewed 02/09/2012 12:00 AM Depo-Medrol 80 mg NDC#[id number]-Jyjaeecr Reviewed 03/15/2012 12:00 AM N BLOCK INJ OCCIPITAL Reviewed 03/15/2012 12:00 AM Kenalog Wl-[address]-20 ANNA Reviewed 04/11/2012 12:00 AM COMPLETE CBC W/AUTO DIFF WBC Returned 04/11/2012 12:00 AM COMPREHEN METABOLIC PANEL Returned 04/11/2012 12:00 AM LIPID PANEL Returned 04/11/2012 12:00 AM ASSAY THYROID STIM HORMONE Returned 06/20/2012 12:00 AM THER/PROPH/DIAG INJ SC/IM Reviewed 06/20/2012 12:00 AM Decadron, Per 1 Mg ND# [address]-85 Reviewed 06/20/2012 12:00 AM Depo-Medrol, Per 80 Mg ND#9839-2053-46 Reviewed 09/06/2012 12:00 AM N BLOCK INJ OCCIPITAL Reviewed 09/06/2012 12:00 AM Kenalog If-[address]-20 ANNA Reviewed 09/06/2012 12:00 AM X-RAY EXAM RIBS UNI 2 VIEWS Returned 09/26/2012 12:00 AM THER/PROPH/DIAG INJ SC/IM Reviewed 09/26/2012 12:00 AM Decadron, Per 1 Mg [facility]# [address]-57 Reviewed 09/26/2012 12:00 AM Depo-Medrol, Per 80 Mg [facility]#0732-7704-64 Reviewed 10/03/2012 12:00 AM URINALYSIS AUTO W/O SCOPE Reviewed 10/03/2012 12:00 AM THER/PROPH/DIAG INJ SC/IM Reviewed 10/03/2012 12:00 AM Toradol 60 Mg ND#0786-2670-37 Reviewed 10/03/2012 12:00 AM Phenergan, 25Mg ND#2015-4201-78 Reviewed 10/19/2012 12:00 AM N BLOCK INJ OCCIPITAL Reviewed 10/19/2012 12:00 AM Kenalog, Per 10 Mg [facility]#7782-1543-87 Reviewed 10/19/2012 12:00 AM Toradol 30 Mg ND#3486-7965-18 Reviewed 10/19/2012 12:00 AM THER/PROPH/DIAG INJ SC/IM Reviewed 10/31/2012 12:00 AM COMPLETE CBC W/AUTO DIFF WBC Returned 10/31/2012 12:00 AM COMPREHEN METABOLIC PANEL Returned 10/31/2012 12:00 AM LIPID PANEL Returned 11/03/2012 12:[address] THORAX W/O & W/DYE Returned 11/08/2012 12:00 AM N BLOCK INJ OCCIPITAL Reviewed 11/08/2012 12:00 AM Kenalog Bl-[address]-20 ANNA Reviewed 11/27/2012 12:00 AM COMPLETE CBC [...] 12:00 AM Decadron, Per 1 Mg [facility]# [address]-50 Reviewed 01/25/2013 12:00 AM Depo-Medrol, Per 80 Mg [facility]#5000-9663-36 Reviewed 01/26/2013 12:00 AM IMMUNOTHERAPY INJECTIONS Returned [...] 12:00 AM Decadron, Per 1 Mg [facility]# [address]-88 Reviewed 05/16/2013 12:00 AM Depo-Medrol, Per 80 Mg [facility]#5682-4605-57 Reviewed 05/31/2013 12:00 AM IMMUNOTHERAPY INJECTIONS Reviewed 06/08/2013 12:00 AM IMMUNOTHERAPY INJECTIONS Reviewed 06/14/2013 12:00 AM IMMUNOTHERAPY INJECTIONS Reviewed 06/28/2013 12:00 AM IMMUNOTHERAPY INJECTIONS Reviewed 07/12/2013 12:00 AM X-RAY EXAM RIBS UNI 2 VIEWS Returned 07/18/2013 12:00 AM Toradol 60 Mg [facility]#7162-3158-88 Reviewed 07/18/2013 12:00 AM THER/PROPH/DIAG INJ SC/IM Reviewed 08/23/2013 12:00 AM COMPLETE CBC W/AUTO DIFF WBC Reviewed 08/23/2013 12:00 AM COMPREHEN METABOLIC PANEL Reviewed 08/23/2013 12:00 AM LIPID PANEL Reviewed 08/31/2013 12:00 AM X-RAY EXAM OF LOWER LEG Returned 09/04/2013 12:00 AM IMMUNOTHERAPY INJECTIONS Reviewed 09/14/2013 12:00 AM THER/PROPH/DIAG INJ SC/IM Reviewed 09/14/2013 12:00 AM Decadron, Per 1 Mg [facility]# [address]-18 Reviewed 09/14/2013 12:00 AM Depo-Medrol, Per 80 Mg [facility]#7540-3671-59 Reviewed 09/20/2013 12:00 AM IMMUNOTHERAPY INJECTIONS Reviewed [...] INJ OCCIPITAL Reviewed 12/10/2009 12:00 AM Kenalog Ij-[address]-20 ANNA Reviewed 12/16/2009 12:00 AM HIV-1ANTIBODY Reviewed 12/16/2009 12:00 AM COMPLETE CBC W/AUTO DIFF WBC Reviewed 12/16/2009 12:00 AM METABOLIC PANEL TOTAL CA Reviewed 12/16/2009 12:00 AM Type and screen Reviewed 12/16/2009 12:00 AM PROTHROMBIN TIME Reviewed 12/16/2009 12:00 AM THROMBOPLASTIN TIME PARTIAL Reviewed 03/18/2010 12:00 AM DRAIN/INJ JOINT/BURSA W/O US Reviewed 03/18/2010 12:00 AM Kenalog Dk-[address]-20 ANNA Reviewed 11/21/2013 12:00 AM RADEX HAND MINIMUM 3 VIEWS Returned 06/03/2010 12:00 AM INJ TRIGGER POINT 1/2 MUSCL Reviewed 06/03/2010 12:00 AM Kenalog per 10Mg Im-[facility]#[address]-38(Niall) Reviewed 12/05/2013 12:00 AM COMPLETE CBC W/AUTO [...] Reviewed 07/23/2010 12:00 AM Kenalog per 10Mg Im-Ndc#[address]-36(Niall) Reviewed 2014 12:00 AM COMPLETE CBC W/AUTO [...] INJ OCCIPITAL Reviewed 10/01/2010 12:00 AM Kenalog Un-[address]-20 ANNA Reviewed 07/25/2014 12:00 AM THER/PROPH/DIAG INJ [...] 0.60 mg/dLCALCIUM 10.90 mg/ dLeGFR >60 mL/min/1.73 [id number] 45.0 U/L 08/31/2013 10:54 AM GLUCOSE 255.0 [...] 0.40 mg/ dLCALCIUM 10.60 mg/dLeGFR >60 mL/min/1.73 [id number] 369.0 mg/ dLCHOLESTEROL 153.0 mg/dLHDL 26.0 mg/dLLDL [...] BILI 0.30 mg/dLCALCIUM 10.0 mg/dLeGFR >60 mL/min/1.73 [id number] YELLOW APPEARANCE CLEAR SPEC GRAV 1.010 pH 5.5 PROTEIN NEGATIVE GLUCOSE NEGATIVE KETONE NEGATIVE BILIRUBIN NEGATIVE BLOOD NEGATIVE NITRITE NEGATIVE LEUK SCREEN NEGATIVE Est Avg Glucose 134.1 mg/dLMICROALBUMIN UR <0.5 MG/DL 02/13/2015 4:38 PM RMSF, IgG, EIA Negative [facility] Spotted Fever,IgM 0.51 E. 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 - RHC [id number] [facility] Comm Plan of [id number] Wednesday, 2012 Medicare Part B Medicare Of [place] [id number] Monday, 2000 [place] Medical Assistance [facility] Medical Assistance Prog [id number] Tuesday, 2009 History of Encounters Visit Date Visit Type Provider 07/15/2015 Office visit Kaylynn Mendez FOOD PRODUCTION WORKER 07/04/2015 Office visit Heena Dumont MD 06/06/2015 Office visit Heena Dumont MD 06/06/2015 Office visit Kaylynn Mendez FOOD PRODUCTION WORKER 06/02/2015 Office visit Kaylynn Mendez FOOD PRODUCTION WORKER 05/26/2015 Office visit Kaylynn Mendez FOOD PRODUCTION WORKER 05/20/2015 Office visit Kaylynn Mendez FOOD PRODUCTION WORKER 05/08/2015 Office visit Heena Dumont MD 05/06/2015 Office visit Kaylynn Mendez FOOD PRODUCTION WORKER 04/29/2015 Office visit Kaylynn Mendez FOOD PRODUCTION WORKER 03/27/2015 Voided Brittni Yanez FOOD PRODUCTION WORKER 03/21/2015 Office visit Heena Dumont MD 03/12/2015 Office visit Kaylynn Mendez FOOD PRODUCTION WORKER 02/26/2015 Office visit Brittni Yanez FOOD PRODUCTION WORKER 02/13/2015 Office visit Heena Dumont MD 01/15/2015 Office visit Brittni Yanez FOOD PRODUCTION WORKER 01/13/2015 Office visit Heena Dumont MD 01/08/[address] Carol Fowler MD 01/01/2015 Office visit Brittni Yanez FOOD PRODUCTION WORKER 12/13/2014 Office visit Heena Dumont MD 11/27/2014 Office visit Kaylynn Mendez FOOD PRODUCTION WORKER 11/14/2014 Office visit Heena Dumont MD 10/18/2014 Office visit Heena Dumont MD 10/17/2014 [facility] John Hoskins MD 10/09/2014 Office visit Heena Dumont MD 09/25/2014 Office visit Heena Dumont MD 09/17/2014 Office visit Kaylynn Mendez FOOD PRODUCTION WORKER 09/04/2014 Office visit Heena Dumont MD 08/28/2014 Office visit Kaylynn Mendez FOOD PRODUCTION WORKER 08/23/2014 [facility] John Hoskins MD 08/01/2014 Office visit Kaylynn Mendez FOOD PRODUCTION WORKER 07/29/2014 Office visit Heena Dumont MD 07/25/2014 Nurse visit Heena Dumont MD 07/17/2014 Office visit Kaylynn Mendez FOOD PRODUCTION WORKER 07/11/2014 Office visit Heena Dumont MD 07/01/2014 Office visit Heena Dumont MD 06/25/2014 Office visit Kaylynn Mendez FOOD PRODUCTION WORKER 06/12/2014 Office visit Kaylynn Mendez FOOD PRODUCTION WORKER 06/06/2014 Office visit Kaylynn Mendez FOOD PRODUCTION WORKER 05/27/2014 Office visit Heena Dumont MD 04/20/2014 Office visit Yesica Falcon FOOD PRODUCTION WORKER 03/29/2014 Office visit Na Jones FOOD PRODUCTION WORKER 03/15/2014 Office visit Heena Dumont MD 2014 Office visit Heena Dumont MD 2014 [facility] John Hoskins MD 02/27/2014 Nurse visit Heena Dumont MD 02/13/2014 Office visit Lena El FOOD PRODUCTION WORKER 02/07/2014 Office visit Heean Dumont MD 02/03/2014 Office visit Na Jones FOOD PRODUCTION WORKER 01/30/2014 Office visit Kaylynn Mendez FOOD PRODUCTION WORKER 01/24/2014 Office visit Sundeep Russell FOOD PRODUCTION WORKER 01/16/2014 Office visit Kaylynn Mendez FOOD PRODUCTION WORKER 01/10/2014 Nurse visit Kaylynn Mendez FOOD PRODUCTION WORKER 01/08/2014 Office visit Kaylynn Mendez FOOD PRODUCTION WORKER 12/05/2013 Office visit Kaylynn Mendez FOOD PRODUCTION WORKER 11/21/2013 Office visit Kaylynn Mendez FOOD PRODUCTION WORKER 10/23/2013 Office visit Brittni Yanez FOOD PRODUCTION WORKER 10/17/2013 Nurse visit Heena Dumont MD 10/12/2013 Office visit Kaylynn Mendez FOOD PRODUCTION WORKER 10/02/2013 Office visit Heena Dumont MD 09/20/2013 Nurse visit Kaylynn Mendez FOOD PRODUCTION WORKER 09/20/2013 Voided Heena Dumont MD 09/14/2013 Office visit Kaylynn Walker FOOD PRODUCTION WORKER 09/05/2013 Office visit Sundeep Russell FOOD PRODUCTION WORKER 09/04/2013 Nurse visit Kaylynn Walker FOOD PRODUCTION WORKER 08/31/2013 Office visit Kaylynn Walker FOOD PRODUCTION WORKER 08/23/2013 Office visit Heena Dumont MD 08/10/2013 Office visit Kaylynn Walker FOOD PRODUCTION WORKER 07/25/2013 Office visit Kaylynn Walker FOOD PRODUCTION WORKER 07/18/2013 Office visit Kaylynn Walker FOOD PRODUCTION WORKER 07/12/2013 Office visit Kaylynn Walker FOOD PRODUCTION WORKER 06/28/2013 Nurse visit Kaylynn Walker FOOD PRODUCTION WORKER 06/14/2013 Nurse visit Kaylynn Walker FOOD PRODUCTION WORKER 06/08/2013 Nurse visit Kaylynn Walker FOOD PRODUCTION WORKER 05/31/2013 Nurse visit Chadd Norris DO 05/18/2013 Office visit Terese Davidson MD 05/16/2013 Office visit Kaylynn Walker FOOD PRODUCTION WORKER 05/09/2013 Office visit Kaylynn Mendez FOOD PRODUCTION WORKER 04/29/2013 [facility] John Hoskins MD 04/25/2013 Nurse visit Kaylynn Walker FOOD PRODUCTION WORKER 04/17/2013 Office visit Kayylnn Walker FOOD PRODUCTION WORKER 04/03/2013 Nurse visit Kaylynn Mendez FOOD PRODUCTION WORKER 04/03/2013 Office visit Terese Davidson MD 03/28/2013 Office visit Sundeep Russell FOOD PRODUCTION WORKER 03/21/2013 Office visit Kaylynn Mendez FOOD PRODUCTION WORKER 03/20/2013 Office visit Terese Davidson MD 03/14/2013 Nurse visit Kaylynn Walker FOOD PRODUCTION WORKER 03/05/2013 Nurse visit Kaylynn Mendez FOOD PRODUCTION WORKER 02/19/2013 Office visit Terese Davidson MD 02/16/2013 Nurse visit Kaylynn Mendez FOOD PRODUCTION WORKER 02/09/2013 Office visit Sundeep Russell FOOD PRODUCTION WORKER 02/08/2013 Nurse visit Kaylynn Walker FOOD PRODUCTION WORKER 02/01/2013 Nurse visit Kaylynn Walker FOOD PRODUCTION WORKER 01/26/2013 Nurse visit Sabrina Mendez DECAL TRANSFERRER 01/25/2013 Office visit Kaylynn Mendez FOOD PRODUCTION WORKER 01/22/2013 Office visit Yoan Castaneda MD 01/18/2013 Nurse visit Kaylynn Walker FOOD PRODUCTION WORKER 01/11/2013 Nurse visit Kaylynn Walker FOOD PRODUCTION WORKER 01/05/2013 Nurse visit Kaylynn Walker FOOD PRODUCTION WORKER 12/29/2012 Office visit Kaylynn Walker FOOD PRODUCTION WORKER 11/27/2012 Office visit Kaylynn Walker FOOD PRODUCTION WORKER 11/08/2012 Office visit Odell Tierney MD 11/08/2012 Voided Odell Tierney MD 11/07/2012 Office visit Kaylynn Mendez FOOD PRODUCTION WORKER 10/31/2012 [facility] John Hoskins MD 10/31/2012 Office visit Kayylnn Mendez FOOD PRODUCTION WORKER 10/19/2012 Office visit Genoveva Ayala FOOD PRODUCTION WORKER 10/10/2012 Office visit Kaylynn Walker FOOD PRODUCTION WORKER 10/03/2012 Office visit Kaylynn Walker FOOD PRODUCTION WORKER 09/26/2012 Office visit Kaylynn Walker FOOD PRODUCTION WORKER 09/06/2012 Office visit Kaylynn Walker FOOD PRODUCTION WORKER 09/06/2012 Office visit Odell Tierney MD 08/31/2012 Voided Kaylynn Mendez FOOD PRODUCTION WORKER 07/28/2012 Office visit Kaylynn Mendez FOOD PRODUCTION WORKER 07/27/2012 Office visit David Joyner DO 07/20/2012 [facility] David Joyner DO 07/13/2012 [facility] David Joyner DO 07/11/2012 Office visit Kaylynn Mendez FOOD PRODUCTION WORKER 06/27/2012 [facility] Odell Tierney MD 06/21/2012 Office visit David Joyner DO 06/21/2012 Office visit Odell Tierney MD 06/20/2012 Office visit Brittni Yanez FOOD PRODUCTION WORKER 06/06/2012 Office visit Odell Tierney MD 05/03/2012 Office visit Kaylynn Mendez FOOD PRODUCTION WORKER 04/28/2012 Office visit Brittni Yanez FOOD PRODUCTION WORKER 04/11/2012 Office visit Kaylynn Mendez FOOD PRODUCTION WORKER 04/06/2012 [facility] John Hoskins MD 03/30/2012 Office visit Kaylynn Mendez FOOD PRODUCTION WORKER 03/15/2012 Office visit Kaylynn Mendez FOOD PRODUCTION WORKER 03/15/2012 Office visit Odell Tierney MD 02/09/2012 Office visit Kaylynn Mendez FOOD PRODUCTION WORKER 12/23/2011 Office visit Kaylynn Mendez FOOD PRODUCTION WORKER 11/02/2011 Office visit Kaylynn Mendez FOOD PRODUCTION WORKER 10/14/2011 Office visit Kaylynn Mendez FOOD PRODUCTION WORKER 09/27/2011 Office visit Kaylynn Mendez FOOD PRODUCTION WORKER 08/19/2011 [facility] John Hoskins MD 08/18/2011 [facility] John Hoskins MD 08/18/2011 Office visit Kaylynn Mendez FOOD PRODUCTION WORKER 08/02/2011 Office visit Kaylynn Mendez FOOD PRODUCTION WORKER 07/08/2011 Office visit Kaylynn Mendez FOOD PRODUCTION WORKER 07/05/2011 Office visit Odell Tierney MD 06/15/2011 Office visit Kaylynn Mendez FOOD PRODUCTION WORKER 05/14/2011 Office visit Kaylynn Mendez FOOD PRODUCTION WORKER 05/11/2011 Office visit Odell Tierney MD 04/28/2011 Office visit Kaylynn Mendez FOOD PRODUCTION WORKER 03/02/2011 Office visit Chadd Norris DO 02/17/2011 [...]
--- OUTSIDE RECORDS SUMMARY | 2018-05-09 17:59 | XMS REPORT ---
Author Na Marsh Organization [facility] Address [address] [place], [place] [id number] Care Team Providers Care Facilities Maintenance Manager Name Role Phone Na Jones PCP Allergies and Adverse Reactions Name Reaction Notes Aspirin Methadone Ultram Vicodin Plan of Treatment Planned Activity Comments Planned Date Planned Time Plan/Goal CINE/VID X-RAY THROAT/ESOPH 05/08/2015 12:00 AM COMPREHEN METABOLIC PANEL 09/16/2015 12:00 AM ELECTROCARDIOGRAM COMPLETE 11/13/2015 12:00 AM HEMOGLOBIN 12/16/2015 12:00 AM ECG MONIT/REPRT UP TO 48 HRS 01/21/2016 12:00 AM ELECTROCARDIOGRAM COMPLETE 10/31/2012 12:00 AM [...] APPLY BY EXTERNAL ROUTE ONCE DAILY OneTouch [employer] Now IQ Meter miscellaneous kit 01/21/2016 test 2 x daily, Dx: E11.9, 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 OneTouch Delnatalio Lancets 33 gauge miscellaneous misc 01/21/2016 use as directed OneTouch Verio miscellaneous strip 01/21/2016 07/19/2016 Test [...] 08/27/2014 use as directed for 99 days [place] 5-325 mg oral tablet 06/17/2014 06/27/2014 take [...] a day as needed for 30 days opaejmmg-lizdrbipw-QD 3.5-10,000-1 mg/mL-unit/mL-% otic drops,suspension 201401/08/2015 instill 4 [...] HC BMI BSA BMI Percentile O2 Sat(%) 02/14/2016 11:32:00 AM 79 bpm 18 rpm [...] Reviewed 04/28/2011 12:00 AM Decadron 1 mg NDC#08061767047 (Jr) Reviewed 04/28/2011 12:00 AM Depo-Medrol 80 mg NDC#52150301610-Avcalvif Reviewed 09/02/2015 12:00 AM Toradol 60 Mg NDC#3634-3509-34 Reviewed 09/02/2015 12:00 AM Phenergan, Up to 50 Mg RHC Medicaid Reviewed 09/16/2015 12:00 AM Toradol 60 Mg [facility]#9403-5705-78 Reviewed 09/16/2015 12:00 AM Phenergan Up to 50 mg RHC Medicare Reviewed 05/11/2011 12:00 AM N BLOCK INJ OCCIPITAL Reviewed 05/11/2011 12:00 AM Kenalog Rj-[address]-20 ANNA Reviewed 11/13/2015 12:00 AM ASSAY OF [...] SC/IM Reviewed 07/08/2011 12:00 AM Toradol,15mg [facility]#[id number] Reviewed 07/08/2011 12:00 AM Phenergan 50 Mg Im [facility] 8623-5416-87 ALLIE Hoskins Reviewed 08/02/2011 12:00 AM THER/PROPH/DIAG INJ SC/IM Reviewed 08/02/2011 12:00 AM Decadron 1 mg [facility]#86073219934 (Jr) Reviewed 08/02/2011 12:00 AM Depo-Medrol 80 mg [facility]#[id number]-Uqdmmnhq Reviewed 09/27/2011 12:00 AM THER/PROPH/DIAG INJ SC/IM Reviewed 09/27/2011 12:00 AM Depo-Medrol 80 mg [facility]#89802529351-Qesyhdrt Reviewed 10/14/2011 12:00 AM X-RAY EXAM OF ABDOMEN Returned 10/14/2011 12:00 AM URINALYSIS AUTO W/O SCOPE Reviewed 12/23/2011 12:00 AM THER/PROPH/DIAG INJ SC/IM Reviewed 12/23/2011 12:00 AM Decadron 1 mg N[facility]#31114758545 (Jr) Reviewed 12/23/2011 12:00 AM Depo-Medrol 80 mg NDC#[id number]-Oywcebpn Reviewed 02/09/2012 12:00 AM THER/PROPH/DIAG INJ SC/IM Reviewed 02/09/2012 12:00 AM Decadron 1 mg N[facility]#66858485902 (Jr) Reviewed 02/09/2012 12:00 AM Depo-Medrol 80 mg NDC#76676395474-Gracvzsu Reviewed 03/15/2012 12:00 AM N BLOCK INJ OCCIPITAL Reviewed 03/15/2012 12:00 AM Kenalog Up-[address]-20 ANNA Reviewed 04/11/2012 12:00 AM COMPLETE CBC W/AUTO DIFF WBC Returned 04/11/2012 12:00 AM COMPREHEN METABOLIC PANEL Returned 04/11/2012 12:00 AM LIPID PANEL Returned 04/11/2012 12:00 AM ASSAY THYROID STIM HORMONE Returned 06/20/2012 12:00 AM THER/PROPH/DIAG INJ SC/IM Reviewed 06/20/2012 12:00 AM Decadron, Per 1 Mg ND# [address]-07 Reviewed 06/20/2012 12:00 AM Depo-Medrol, Per 80 Mg ND#2565-0767-73 Reviewed 09/06/2012 12:00 AM N BLOCK INJ OCCIPITAL Reviewed 09/06/2012 12:00 AM Kenalog Bn-[address]-20 ANNA Reviewed 09/06/2012 12:00 AM X-RAY EXAM RIBS UNI 2 VIEWS Returned 09/26/2012 12:00 AM THER/PROPH/DIAG INJ SC/IM Reviewed 09/26/2012 12:00 AM Decadron, Per 1 Mg ND# [address]-07 Reviewed 09/26/2012 12:00 AM Depo-Medrol, Per 80 Mg ND#1981-6615-01 Reviewed 10/03/2012 12:00 AM URINALYSIS AUTO W/O SCOPE Reviewed 10/03/2012 12:00 AM THER/PROPH/DIAG INJ SC/IM Reviewed 10/03/2012 12:00 AM Toradol 60 Mg ND#1526-3180-85 Reviewed 10/03/2012 12:00 AM Phenergan, 25Mg ND#5015-7321-82 Reviewed 10/19/2012 12:00 AM N BLOCK INJ OCCIPITAL Reviewed 10/19/2012 12:00 AM Kenalog, Per 10 Mg ND#6357-2950-26 Reviewed 10/19/2012 12:00 AM Toradol 30 Mg [facility]#6465-0927-05 Reviewed 10/19/2012 12:00 AM THER/PROPH/DIAG INJ SC/IM Reviewed 10/31/2012 12:00 AM COMPLETE CBC W/AUTO DIFF WBC Returned 10/31/2012 12:00 AM COMPREHEN METABOLIC PANEL Returned 10/31/2012 12:00 AM LIPID PANEL Returned 11/03/2012 12:[address] THORAX W/O & W/DYE Returned 11/08/2012 12:00 AM N BLOCK INJ OCCIPITAL Reviewed 11/08/2012 12:00 AM Kenalog Pm-[address]-20 ANNA Reviewed 11/27/2012 12:00 AM COMPLETE CBC [...] 1 Mg [facility]# [address]-54 Reviewed 01/25/2013 12:00 AM Depo-Medrol, Per 80 Mg [facility]#0752-8455-21 Reviewed 01/26/2013 12:00 AM IMMUNOTHERAPY INJECTIONS Returned [...] 1 Mg [facility]# [address]-91 Reviewed 05/16/2013 12:00 AM Depo-Medrol, Per 80 Mg [facility]#9579-9371-46 Reviewed 05/31/2013 12:00 AM IMMUNOTHERAPY INJECTIONS Reviewed 06/08/2013 12:00 AM IMMUNOTHERAPY INJECTIONS Reviewed 06/14/2013 12:00 AM IMMUNOTHERAPY INJECTIONS Reviewed 06/28/2013 12:00 AM IMMUNOTHERAPY INJECTIONS Reviewed 07/12/2013 12:00 AM X-RAY EXAM RIBS UNI 2 VIEWS Returned 07/18/2013 12:00 AM Toradol 60 Mg [facility]#9949-9968-17 Reviewed 07/18/2013 12:00 AM THER/PROPH/DIAG INJ SC/IM [...] 1 Mg [facility]# [address]-49 Reviewed 09/14/2013 12:00 AM Depo-Medrol, Per 80 Mg [facility]#9145-9894-70 Reviewed 09/20/2013 12:00 AM IMMUNOTHERAPY INJECTIONS Reviewed [...] INJ OCCIPITAL Reviewed 12/10/2009 12:00 AM Kenalog Of-[address]-20 ANNA Reviewed 12/16/2009 12:00 AM HIV-1ANTIBODY Reviewed 12/16/2009 12:00 AM COMPLETE CBC W/AUTO DIFF WBC Reviewed 12/16/2009 12:00 AM METABOLIC PANEL TOTAL CA Reviewed 12/16/2009 12:00 AM Type and screen Reviewed 12/16/2009 12:00 AM PROTHROMBIN TIME Reviewed 12/16/2009 12:00 AM THROMBOPLASTIN TIME PARTIAL Reviewed 03/18/2010 12:00 AM DRAIN/INJ JOINT/BURSA W/O US Reviewed 03/18/2010 12:00 AM Kenalog Vd-[address]-20 ANNA Reviewed 11/21/2013 12:00 AM RADEX HAND MINIMUM 3 VIEWS Returned 06/03/2010 12:00 AM INJ TRIGGER POINT 1/2 MUSCL Reviewed 06/03/2010 12:00 AM Kenalog per 10Mg -[facility]#[address]-60(Niall) Reviewed 12/05/2013 12:00 AM COMPLETE CBC W/AUTO [...] Reviewed 07/23/2010 12:00 AM Kenalog per 10Mg Im-[facility]#[address]-48(Niall) Reviewed 2014 12:00 AM COMPLETE CBC W/AUTO [...] INJ OCCIPITAL Reviewed 10/01/2010 12:00 AM Kenalog Cj-[address]-20 ANNA Reviewed 07/25/2014 12:00 AM THER/PROPH/DIAG INJ [...] 0.60 mg/dLCALCIUM 10.90 mg/ dLeGFR >60 mL/min/1.73 [id number] 45.0 U/L 08/31/2013 10:54 AM GLUCOSE 255.0 [...] 0.40 mg/ dLCALCIUM 10.60 mg/dLeGFR >60 mL/min/1.73 [id number] 369.0 mg/ dLCHOLESTEROL 153.0 mg/dLHDL 26.0 mg/dLLDL [...] BILI 0.30 mg/dLCALCIUM 10.0 mg/dLeGFR >60 mL/min/1.73 [id number] YELLOW APPEARANCE CLEAR SPEC GRAV 1.010 pH 5.5 PROTEIN NEGATIVE GLUCOSE NEGATIVE KETONE NEGATIVE BILIRUBIN NEGATIVE BLOOD NEGATIVE NITRITE NEGATIVE LEUK SCREEN NEGATIVE Est Avg Glucose 134.1 mg/dLMICROALBUMIN UR <0.5 MG/DL 02/13/2015 4:38 PM RMSF, IgG, EIA Negative [facility] Spotted Fever,IgM 0.51 E. chaffeensis [...] 141 Influenza 04/24/2014 sanofi pasteur PMC Fluzone [id number] Intramuscular Left Upper Arm 02/27/2014 01/15/2014 141 Influenza 02/13/2015 sanofi pasteur PMC Fluzone [id number] Intramuscular Left Deltoid 02/13/2015 01/03/2015 140 Tdap [...] Start Date Medicare Part A Medicare RHC [id number] N/A [facility] - RHC - Community Plan of [facility] RHC Comm [id number] N/A Medicare Part A Medicare - Lab/Xray [id number] N/A Medicare Part B Medicare Of [place] [id number] Monday, February 28, 2000 [place] [facility] [place] [facility] [place] [id number] Tuesday, November 10, 2009 Medicare Part A Medicare Part A [id number] N/A [place] [employer] - [place] [employer] - R[place] [id number] [facility] Plan [facility] Comm Plan of [id number] Wednesday, May 30, 2012 History of Encounters Visit Date Visit Type Provider 02/14/2016 Office visit Na Jones SOX ANALYST 01/16/2016 Office visit Heena Dumont MD 12/16/2015 Office visit Heena Dumont MD 11/24/2015 Office visit Kaylynn Mendez SOX ANALYST 11/18/2015 Office visit Heena Dumont MD 11/03/2015 Office visit Sundeep Russell SOX ANALYST 10/20/2015 Office visit Kaylynn Mendez SOX ANALYST 09/23/2015 Office visit Kaylynn Mendez SOX ANALYST 09/16/[address] Pepe Figueroa MD 09/02/2015 Office visit Kaylynn Mendez SOX ANALYST 09/01/2015 Office visit Kaylynn Mendez SOX ANALYST 07/30/2015 Office visit Heena Dumont MD 07/15/2015 Office visit Kaylynn Mendez SOX ANALYST 07/04/2015 Office visit Heena Dumont MD 06/06/2015 Office visit Heena Dumont MD 06/06/2015 Office visit Kaylynn Mendez SOX ANALYST 06/02/2015 Office visit Kaylynn Mendez SOX ANALYST 05/26/2015 Office visit Kaylynn Mendez SOX ANALYST 05/20/2015 Office visit Kaylynn Mendez SOX ANALYST 05/08/2015 Office visit Heena Dumont MD 05/06/2015 Office visit Kaylynn Mendez SOX ANALYST 04/29/2015 Office visit Kaylynn Mendez SOX ANALYST 03/27/2015 Voided Brittni Yanez SOX ANALYST 03/21/2015 Office visit Heena Dumont MD 03/12/2015 Office visit Kaylynn Mendez SOX ANALYST 02/26/2015 Office visit Brittni Yanez SOX ANALYST 02/13/2015 Office visit Heena Dumont MD 01/15/2015 Office visit Brittni Yanez SOX ANALYST 01/13/2015 Office visit Heena Dumont MD 01/08/[address] Carol Fowler MD 01/01/2015 Office visit Brittni Yanez SOX ANALYST 12/13/2014 Office visit Heena Dumont MD 11/27/2014 Office visit Kaylynn Mendez SOX ANALYST 11/14/2014 Office visit Heena Dumont MD 10/18/2014 Office visit Heena Dumont MD 10/17/2014 [facility] Eliseo Hoskins MD 10/09/2014 Office visit Heena Dumont MD 09/25/2014 Office visit Heena Dumont MD 09/17/2014 Office visit Kaylynn Mendez SOX ANALYST 09/04/2014 Office visit Heena Dumont MD 08/28/2014 Office visit Kaylynn Mendez SOX ANALYST 08/23/2014 [facility] Eliseo Hoskins MD 08/01/2014 Office visit Kaylynn Mendez SOX ANALYST 07/29/2014 Office visit Heena Dumont MD 07/25/2014 Nurse visit Heena Dumont MD 07/17/2014 Office visit Kaylynn Mendez SOX ANALYST 07/11/2014 Office visit Heena Dumont MD 07/01/2014 Office visit Heena Dumont MD 06/25/2014 Office visit Kaylynn Mendez SOX ANALYST 06/12/2014 Office visit Kaylynn Mendez SOX ANALYST 06/06/2014 Office visit Kaylynn Mendez SOX ANALYST 05/27/2014 Office visit Heena Dumont MD 04/20/2014 Office visit Yesica Falcon SOX ANALYST 03/29/2014 Office visit Na Jones SOX ANALYST 03/15/2014 Office visit Heena Duomnt MD 2014 Office visit Heena Dumont MD 2014 [facility] John Hoskins MD 02/27/2014 Nurse visit Heena Dumont MD 02/13/2014 Office visit Lena El SOX ANALYST 02/07/2014 Office visit Heena Dumont MD 02/03/2014 Office visit Na Jones SOX ANALYST 01/30/2014 Office visit Kaylynn Mendez SOX ANALYST 01/24/2014 Office visit Sundeep Russell SOX ANALYST 01/16/2014 Office visit Kaylynn Mendez SOX ANALYST 01/10/2014 Nurse visit Kaylynn Mendez SOX ANALYST 01/08/2014 Office visit Kaylynn Mendez SOX ANALYST 12/05/2013 Office visit Kaylynn Walker SOX ANALYST 11/21/2013 Office visit Kaylynn Walker SOX ANALYST 10/23/2013 Office visit Brittni Yanez SOX ANALYST 10/17/2013 Nurse visit Heena Dumont MD 10/12/2013 Office visit Kaylynn Walker SOX ANALYST 10/02/2013 Office visit Heena Dumont MD 09/20/2013 Nurse visit Kaylynn Walker SOX ANALYST 09/20/2013 Voided Heena Dumont MD 09/14/2013 Office visit Kaylynn Walker SOX ANALYST 09/05/2013 Office visit Sundeep Russell SOX ANALYST 09/04/2013 Nurse visit Kaylynn Walker SOX ANALYST 08/31/2013 Office visit Kaylynn Walker SOX ANALYST 08/23/2013 Office visit Heena Dumont MD 08/10/2013 Office visit Kaylynn Walker SOX ANALYST 07/25/2013 Office visit Kaylynn Walker SOX ANALYST 07/18/2013 Office visit Kaylynn Walker SOX ANALYST 07/12/2013 Office visit Kaylynn Walker SOX ANALYST 06/28/2013 Nurse visit Kaylynn Walker SOX ANALYST 06/14/2013 Nurse visit Kaylynn Walker SOX ANALYST 06/08/2013 Nurse visit Kaylynn Walker SOX ANALYST 05/31/2013 Nurse visit Chadd Norris DO 05/18/2013 Office visit Terese Davidson MD 05/16/2013 Office visit Kaylynn Mendez SOX ANALYST 05/09/2013 Office visit Kaylynn Mendez SOX ANALYST 04/29/2013 Zuleika Hoskins MD 04/25/2013 Nurse visit Kaylynn Mendez SOX ANALYST 04/17/2013 Office visit Kaylynn Walker SOX ANALYST 04/03/2013 Nurse visit Kaylynn Mendez SOX ANALYST 04/03/2013 Office visit Terese Davidson MD 03/28/2013 Office visit Sundeep Russell SOX ANALYST 03/21/2013 Office visit Kaylynn Mendez SOX ANALYST 03/20/2013 Office visit Terese Davidson MD 03/14/2013 Nurse visit Kaylynn Mendez SOX ANALYST 03/05/2013 Nurse visit Kaylynn Mendez SOX ANALYST 02/19/2013 Office visit Terese Davidson MD 02/16/2013 Nurse visit Kaylynn Mendez SOX ANALYST 02/09/2013 Office visit Sundeep Russell SOX ANALYST 02/08/2013 Nurse visit Kaylynn Walker SOX ANALYST 02/01/2013 Nurse visit Kaylynn Walker SOX ANALYST 01/26/2013 Nurse visit Sabrina Mendez FISHER SPEAR 01/25/2013 Office visit Kaylynn Mendez SOX ANALYST 01/22/2013 Office visit Yoan Castaneda MD 01/18/2013 Nurse visit Kaylynn Walker SOX ANALYST 01/11/2013 Nurse visit Kaylynn Walker SOX ANALYST 01/05/2013 Nurse visit Kaylynn Walker SOX ANALYST 12/29/2012 Office visit Kaylynn Walker SOX ANALYST 11/27/2012 Office visit Kaylynn Walker SOX ANALYST 11/08/2012 Office visit Odell Tierney MD 11/08/2012 Voided Odell Tierney MD 11/07/2012 Office visit Kaylynn Walker SOX ANALYST 10/31/2012 [facility] John Hoskins MD 10/31/2012 Office visit Kaylynn Walker SOX ANALYST 10/19/2012 Office visit Genoveva Ayala SOX ANALYST 10/10/2012 Office visit Kaylynn Walker SOX ANALYST 10/03/2012 Office visit Kaylynn Walker SOX ANALYST 09/26/2012 Office visit Kalyynn Walker SOX ANALYST 09/06/2012 Office visit Kaylynn Walker SOX ANALYST 09/06/2012 Office visit Odell Tierney MD 08/31/2012 Voided Kaylynn Mendez SOX ANALYST 07/28/2012 Office visit Kaylynn Walker SOX ANALYST 07/27/2012 Office visit David Joyner DO 07/20/2012 [facility] 07/13/2012 [facility] DO 07/11/2012 Office visit Kaylynn Mendez SOX ANALYST 06/27/2012 [facility] Odell Tierney MD 06/21/2012 Office visit David Joyner DO 06/21/2012 Office visit Odell Tierney MD 06/20/2012 Office visit Brittni Yanez SOX ANALYST 06/06/2012 Office visit Odell Tierney MD 05/03/2012 Office visit Kaylynn Mendez SOX ANALYST 04/28/2012 Office visit Brittni Yanez SOX ANALYST 04/11/2012 Office visit Kaylynn Mendez SOX ANALYST 04/06/2012 [facility] John Hoskins MD 03/30/2012 Office visit Kaylynn Walker SOX ANALYST 03/15/2012 Office visit Kaylynn Walker SOX ANALYST 03/15/2012 Office visit Odell Tierney MD 02/09/2012 Office visit Kaylynn Walker SOX ANALYST 12/23/2011 Office visit Kaylynn Walker SOX ANALYST 11/02/2011 Office visit Kaylynn Walker SOX ANALYST 10/14/2011 Office visit Kaylynn Walker SOX ANALYST 09/27/2011 Office visit Kaylynn Walker SOX ANALYST 08/19/2011 [facility] John Hoskins MD 08/18/2011 [facility] John Hoskins MD 08/18/2011 Office visit Kaylynn Walker SOX ANALYST 08/02/2011 Office visit Kaylynn Walker SOX ANALYST 07/08/2011 Office visit Kaylynn Walker SOX ANALYST 07/05/2011 Office visit Odell Tierney MD 06/15/2011 Office visit Kaylynn Mendez SOX ANALYST 05/14/2011 Office visit Kaylynn Mendez SOX ANALYST 05/11/2011 Office visit Odell Tierney MD 04/28/2011 Office visit Kaylynn Mendez SOX ANALYST 03/02/2011 Office visit Chadd Norris DO 02/17/2011 [...]
--- OUTSIDE RECORDS SUMMARY | 2018-05-09 18:05 | XMS REPORT ---
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 qlllvybu-yfizzngqp-BF 3.5-10,000-1 mg/mL-unit/mL-% otic drops,suspension 201607/23/2016 instill 4 [...] Reviewed 04/28/2011 12:00 AM Decadron 1 mg FORMERLY NAMED [facility]#[id number] (Jr) Reviewed 04/28/2011 12:00 AM Depo-Medrol 80 mg FORMERLY NAMED [facility]#[id number]-Bomakqwl Reviewed 09/02/2015 12:00 AM Toradol 60 Mg ND#9011-9214-33 Reviewed 09/02/2015 12:00 AM Phenergan, Up to 50 Mg RHC Medicaid Reviewed 09/16/2015 12:00 AM Toradol 60 Mg ND#2197-2799-73 Reviewed 09/16/2015 12:00 AM Phenergan Up to 50 mg RHC Medicare Reviewed 05/11/2011 12:00 AM N BLOCK INJ OCCIPITAL Reviewed 05/11/2011 12:00 AM Kengretta Qz-[address]-0002-20 ANNA Reviewed 11/13/2015 12:00 AM ASSAY OF [...] INJ SC/IM Reviewed 07/08/2011 12:00 AM Toradol,15mg FORMERLY NAMED [facility]#[id number], [place] Reviewed 07/08/2011 12:00 AM Phenergan 50 Mg Im [facility] 2848-3184-31 [place] Reviewed 01/21/2016 12:00 AM ECG MONIT/REPRT UP TO 48 HRS Returned 08/02/2011 12:00 AM THER/PROPH/DIAG INJ SC/IM Reviewed 08/02/2011 12:00 AM Decadron 1 mg FORMERLY NAMED [facility]#[id number] (Jr) Reviewed 08/02/2011 12:00 AM Depo-Medrol 80 mg FORMERLY NAMED [facility]#[id number]-Rrlgsyiw Reviewed 03/05/2016 12:00 AM COMPLETE CBC W/AUTO DIFF WBC Reviewed 03/05/2016 12:00 AM STREP A ASSAY W/OPTIC Reviewed 03/05/2016 12:00 AM C-REACTIVE PROTEIN Reviewed 03/18/2016 12:00 AM [facility] - flu vaccine administration Reviewed 03/18/2016 [...] Reviewed 09/27/2011 12:00 AM Depo-Medrol 80 mg ND#[id number]-Wofzllmi Reviewed 09/27/2011 12:00 AM Depo-Medrol 40 mg FORMERLY NAMED [facility]#[id number] Reviewed 07/06/2016 12:00 AM CHEST X-RAY 4/> [...] Reviewed 12/23/2011 12:00 AM Decadron 1 mg NDC#[id number] (Jr) Reviewed 12/23/2011 12:00 AM Depo-Medrol 80 mg NDC#[id number]-Mmjqhydy Reviewed 11/02/2016 11:45 AM URINALYSIS AUTO W/O [...] Reviewed 02/09/2012 12:00 AM Decadron 1 mg N[facility]#[id number] (Jr) Reviewed 02/09/2012 12:00 AM Depo-Medrol 80 mg N[facility]#[id number]-Aonjqdoy Reviewed 03/15/2012 12:00 AM N BLOCK INJ OCCIPITAL Reviewed 03/15/2012 12:00 AM Kenalog Jq-[address]-20 ANNA Reviewed 04/11/2012 12:00 AM COMPLETE CBC W/AUTO DIFF WBC Reviewed 04/11/2012 12:00 AM COMPREHEN METABOLIC PANEL Reviewed 04/11/2012 12:00 AM LIPID PANEL Reviewed 04/11/2012 12:00 AM ASSAY THYROID STIM HORMONE Reviewed 04/11/2012 12:00 AM DESTRUCT PREMALG LES 2-14 Reviewed 06/20/2012 12:00 AM THER/PROPH/DIAG INJ SC/IM Reviewed 06/20/2012 12:00 AM Decadron, Per 1 Mg ND# [address]-33 Reviewed 06/20/2012 12:00 AM Depo-Medrol, Per 80 Mg ND#9179-4845-75 Reviewed 09/06/2012 12:00 AM N BLOCK INJ OCCIPITAL Reviewed 09/06/2012 12:00 AM Kenalog Bh-[address]-20 ANNA Reviewed 09/06/2012 12:00 AM X-RAY EXAM RIBS UNI 2 VIEWS Reviewed 09/26/2012 12:00 AM THER/PROPH/DIAG INJ SC/IM Reviewed 09/26/2012 12:00 AM Decadron, Per 1 Mg ND# [address]-59 Reviewed 09/26/2012 12:00 AM Depo-Medrol, Per 80 Mg ND#6754-1324-67 Reviewed 10/03/2012 12:00 AM URINALYSIS AUTO W/O SCOPE Reviewed 10/03/2012 12:00 AM THER/PROPH/DIAG INJ SC/IM Reviewed 10/03/2012 12:00 AM Toradol 60 Mg ND#8284-5168-88 Reviewed 10/03/2012 12:00 AM Phenergan, 25Mg ND#5220-4966-53 Reviewed 10/19/2012 12:00 AM N BLOCK INJ OCCIPITAL Reviewed 10/19/2012 12:00 AM Kenalog, Per 10 Mg ND#3475-4325-13 Reviewed 10/19/2012 12:00 AM Toradol 30 Mg ND#3118-1332-92 Reviewed 10/19/2012 12:00 AM THER/PROPH/DIAG INJ SC/IM Reviewed 10/31/2012 12:00 AM COMPLETE CBC W/AUTO DIFF WBC Reviewed 10/31/2012 12:00 AM COMPREHEN METABOLIC PANEL Reviewed 10/31/2012 12:00 AM LIPID PANEL Reviewed 10/31/2012 12:00 AM ELECTROCARDIOGRAM COMPLETE Reviewed 11/03/2012 12:[address] THORAX W/O & W/DYE Reviewed 11/08/2012 12:00 AM N BLOCK INJ OCCIPITAL Reviewed 11/08/2012 12:00 AM Kengretta Lr-[address]-20 ANNA Reviewed 11/27/2012 12:00 AM COMPLETE CBC [...] 01/25/2013 12:00 AM Decadron, Per 1 Mg FORMERLY NAMED [facility]# [address]-40 Reviewed 01/25/2013 12:00 AM Depo-Medrol, Per 80 Mg FORMERLY NAMED [facility]#0816-3391-63 Reviewed 01/26/2013 12:00 AM IMMUNOTHERAPY ONE INJECTION [...] 05/16/2013 12:00 AM Decadron, Per 1 Mg FORMERLY NAMED [facility]# [address]-69 Reviewed 05/16/2013 12:00 AM Depo-Medrol, Per 80 Mg FORMERLY NAMED [facility]#7125-1375-91 Reviewed 05/31/2013 12:00 AM IMMUNOTHERAPY INJECTIONS Reviewed 06/08/2013 12:00 AM IMMUNOTHERAPY INJECTIONS Reviewed 06/14/2013 12:00 AM IMMUNOTHERAPY INJECTIONS Reviewed 06/28/2013 12:00 AM IMMUNOTHERAPY INJECTIONS Reviewed 07/12/2013 12:00 AM X-RAY EXAM RIBS UNI 2 VIEWS Reviewed 07/18/2013 12:00 AM Toradol 60 Mg FORMERLY NAMED [facility]#4532-2522-67 Reviewed 07/18/2013 12:00 AM THER/PROPH/DIAG INJ SC/IM Reviewed 08/23/2013 12:00 AM COMPLETE CBC W/AUTO DIFF WBC Reviewed 08/23/2013 12:00 AM COMPREHEN METABOLIC PANEL Reviewed 08/23/2013 12:00 AM LIPID PANEL Reviewed 08/31/2013 12:00 AM X-RAY EXAM OF LOWER LEG Reviewed 09/04/2013 12:00 AM IMMUNOTHERAPY INJECTIONS Reviewed 09/14/2013 12:00 AM THER/PROPH/DIAG INJ SC/IM Reviewed 09/14/2013 12:00 AM Decadron, Per 1 Mg FORMERLY NAMED [facility]# [address]-92 Reviewed 09/14/2013 12:00 AM Depo-Medrol, Per 80 Mg FORMERLY NAMED [facility]#5587-6543-26 Reviewed 09/20/2013 12:00 AM IMMUNOTHERAPY INJECTIONS Reviewed [...] INJ OCCIPITAL Reviewed 12/10/2009 12:00 AM Kenalog Zy-[address]-20 ANNA Reviewed 12/16/2009 12:00 AM HIV-1ANTIBODY Reviewed 12/16/2009 12:00 AM COMPLETE CBC W/AUTO DIFF WBC Reviewed 12/16/2009 12:00 AM METABOLIC PANEL TOTAL CA Reviewed 12/16/2009 12:00 AM Type and screen Reviewed 12/16/2009 12:00 AM PROTHROMBIN TIME Reviewed 12/16/2009 12:00 AM THROMBOPLASTIN TIME PARTIAL Reviewed 03/18/2010 12:00 AM DRAIN/INJ JOINT/BURSA W/O US Reviewed 03/18/2010 12:00 AM Kengretta Tt-[address]-20 ANNA Reviewed 11/21/2013 12:00 AM RADEX HAND MINIMUM 3 VIEWS Reviewed 06/03/2010 12:00 AM INJ TRIGGER POINT 1/2 MUSCL Reviewed 06/03/2010 12:00 AM Kenalog per 10Mg -[facility]#[address]-47(Niall) Reviewed 12/05/2013 12:00 AM COMPLETE CBC W/AUTO [...] 07/23/2010 12:00 AM Kenalog per 10Mg Im-[facility]#[address]-93(Niall) Reviewed 2014 12:00 AM COMPLETE CBC W/AUTO [...] INJ OCCIPITAL Reviewed 10/01/2010 12:00 AM Kenalog Xh-[address]-20 ANNA Reviewed 07/25/2014 12:00 AM THER/PROPH/DIAG INJ [...] 141 Influenza 04/24/2014 sanofi pasteur PMC Fluzone [id number] Intramuscular Left Upper Arm 02/27/2014 01/15/2014 141 Influenza 02/13/2015 sanofi pasteur PMC Fluzone [id number] Intramuscular Left Deltoid 02/13/2015 01/03/2015 140 Tdap 06/06/2015 [employer]Smith[employer] SKB BOOSTRIX [id number] Intramuscular Left Deltoid 06/06/2015 07/23/2014 115 Influenza 03/18/2016 sanofi pasteur PMC Fluzone [id number] Intramuscular Left Deltoid 03/17/2016 01/03/2015 141 History [...] Anxiety about health Jan 03 2017 2:12PM Payers Insurance Name Company Name Plan Name Plan Number Policy Number Policy Group Number Start Date Medicare RHC Medicare RHC [id number] N/A [facility] RH Comm [id number] N/A Medicare Part A Medicare - Lab/Xray [id number] N/A Medicare Part B Medicare Of [place] [id number] Monday, February 28, 2000 [place] [employer] [place] [employer] [place] [id number] Tuesday, November 10, 2009 Medicare Part A Medicare Part A [id number] N/A [place] [employer] - [place] [employer] - RHC [id number] May [facility] Plan of [id number] Wednesday, May 30, 2012 History of Encounters Visit Date Visit Type Provider 01/03/2017 Office visit Heena Dumont MD 12/15/2016 Office visit Kaylynn Mendez LUMBER BEARER 12/02/2016 Office visit Heena Dumont MD 11/23/2016 Office visit Kaylynn Mendez LUMBER BEARER 11/17/2016 Office visit Kaylynn Mendez LUMBER BEARER 11/05/2016 Office visit Riccardo Cardoza MD 11/02/2016 Office visit Heena Dumont MD 10/06/2016 Office visit Kaylynn Mendez LUMBER BEARER 09/22/2016 Office visit Heena Dumont MD 09/09/2016 Office visit Kaylynn Mendez LUMBER BEARER 08/27/2016 Office visit Riccardo Cardoza MD 08/26/2016 Office visit Heena Dumont MD 07/09/2016 Office visit Riccardo Cardoza MD 07/06/2016 Office visit Heena Dumont MD 06/18/2016 Office visit Kaylynn Mendez LUMBER BEARER 06/07/2016 Office visit Sundeep Russell LUMBER BEARER 06/04/2016 Office visit Heena Dumont MD 05/13/2016 Office visit Heena Dumont MD 05/03/2016 Office visit Heena Dumont MD 04/26/2016 Office visit Kaylynn Mendez LUMBER BEARER 04/14/2016 Office visit Heena Dumont MD 04/13/2016 Office visit Kaylynn Mendez LUMBER BEARER 04/02/2016 Office visit Lena El LUMBER BEARER 04/02/2016 Office visit Heena Dumont MD 03/26/2016 Office visit Yesica Falcon LUMBER BEARER 03/17/2016 Office visit Heena Dumont MD 03/05/2016 Office visit Kaylynn Mendez LUMBER BEARER 02/16/2016 Office visit Heena Dumont MD 02/14/2016 Office visit Na Jones LUMBER BEARER 01/16/2016 Office visit Heena Dumont MD 12/16/2015 Office visit Heena Dumont MD 11/24/2015 Office visit Kaylynn Mendez LUMBER BEARER 11/18/2015 Office visit Heena Dumont MD 11/03/2015 Office visit Sundeep Russell LUMBER BEARER 10/20/2015 Office visit Kaylynn Walker LUMBER BEARER 09/23/2015 Office visit Kaylynn Mendez LUMBER BEARER 09/16/[address] Pepe Figueroa MD 09/02/2015 Office visit Kaylynn Mendez LUMBER BEARER 09/01/2015 Office visit Kaylynn Walker LUMBER BEARER 07/30/2015 Office visit Heena Dumont MD 07/15/2015 Office visit Kaylynn Mendez LUMBER BEARER 07/04/2015 Office visit Heena Dumont MD 06/06/2015 Office visit Heena Dumont MD 06/06/2015 Office visit Kaylynn Walker LUMBER BEARER 06/02/2015 Office visit Kaylynn Walker LUMBER BEARER 05/26/2015 Office visit Kaylynn Walker LUMBER BEARER 05/20/2015 Office visit Kaylynn Mendez LUMBER BEARER 05/08/2015 Office visit Heena Dumont MD 05/06/2015 Office visit Kaylynn Mendez LUMBER BEARER 04/29/2015 Office visit Kaylynn Mendze LUMBER BEARER 03/27/2015 Voided Brittni Yanez LUMBER BEARER 03/21/2015 Office visit Heena Dumont MD 03/12/2015 Office visit Kaylynn Mendez LUMBER BEARER 02/26/2015 Office visit Brittni Yanez LUMBER BEARER 02/13/2015 Office visit Heena Dumont MD 01/15/2015 Office visit Brittni Yanez LUMBER BEARER 01/13/2015 Office visit Heena Dumont MD 01/08/[address] Carol Fowler MD 01/01/2015 Office visit Brittni Yanez LUMBER BEARER 12/13/2014 Office visit Heena Dumont MD 11/27/2014 Office visit Kaylynn Mendez LUMBER BEARER 11/14/2014 Office visit Heena Dumont MD 10/18/2014 Office visit Heena Dumont MD 10/17/2014 [facility] John Hoskins MD 10/09/2014 Office visit Heena Dumont MD 09/25/2014 Office visit Heena Dumont MD 09/17/2014 Office visit Kaylynn Mendez LUMBER BEARER 09/04/2014 Office visit Heena Dumont MD 08/28/2014 Office visit Kaylynn Mendez LUMBER BEARER 08/23/2014 [facility] John Hoskins MD 08/01/2014 Office visit Kaylynn Mendez LUMBER BEARER 07/29/2014 Office visit Heena Dumont MD 07/25/2014 Nurse visit Heena Dumont MD 07/17/2014 Office visit Kaylynn Mendez LUMBER BEARER 07/11/2014 Office visit Heena Dumont MD 07/01/2014 Office visit Heena Dumont MD 06/25/2014 Office visit Kaylynn Mendez LUMBER BEARER 06/12/2014 Office visit Kaylynn Walker LUMBER BEARER 06/06/2014 Office visit Kaylynn Mendez LUMBER BEARER 05/27/2014 Office visit Heena Dumont MD 04/20/2014 Office visit Yesica Falcon LUMBER BEARER 03/29/2014 Office visit Na Jones LUMBER BEARER 03/15/2014 Office visit Heena Dumont MD 2014 Office visit Heena Dumont MD 2014 [facility] Eliseo Hoskins MD 02/27/2014 Nurse visit Heena Dumont MD 02/13/2014 Office visit Lena El LUMBER BEARER 02/07/2014 Office visit Heena Dumont MD 02/03/2014 Office visit Na Jones LUMBER BEARER 01/30/2014 Office visit Kaylynn Mendez LUMBER BEARER 01/24/2014 Office visit Sundeep Russell LUMBER BEARER 01/16/2014 Office visit Kaylynn Walker LUMBER BEARER 01/10/2014 Nurse visit Kaylynn Mendez LUMBER BEARER 01/08/2014 Office visit Kaylynn Walker LUMBER BEARER 12/05/2013 Office visit Kaylynn Mendez LUMBER BEARER 11/21/2013 Office visit Kaylynn Mendez LUMBER BEARER 10/23/2013 Office visit Brittni Yanez LUMBER BEARER 10/17/2013 Nurse visit Heena Dumont MD 10/12/2013 Office visit Kaylynn Mendez LUMBER BEARER 10/02/2013 Office visit Heena Dumont MD 09/20/2013 Nurse visit Kaylynn Mendez LUMBER BEARER 09/20/2013 Voided Heena Dumont MD 09/14/2013 Office visit Kaylynn Walker LUMBER BEARER 09/05/2013 Office visit Sundeep Russell LUMBER BEARER 09/04/2013 Nurse visit Kaylynn Walker LUMBER BEARER 08/31/2013 Office visit Kaylynn Mendez LUMBER BEARER 08/23/2013 Office visit Heena Dumont MD 08/10/2013 Office visit Kaylynn Walker LUMBER BEARER 07/25/2013 Office visit Kaylynn Walker LUMBER BEARER 07/18/2013 Office visit Kaylynn Walker LUMBER BEARER 07/12/2013 Office visit Kaylynn Walker LUMBER BEARER 06/28/2013 Nurse visit Kaylynn Walker LUMBER BEARER 06/14/2013 Nurse visit Kaylynn Walker LUMBER BEARER 06/08/2013 Nurse visit Kaylynn Walker LUMBER BEARER 05/31/2013 Nurse visit Chadd Norris DO 05/18/2013 Office visit Terese Davidson MD 05/16/2013 Office visit Kaylynn Walker LUMBER BEARER 05/09/2013 Office visit Kaylynn Walker LUMBER BEARER 04/29/2013 [facility] John Hoskins MD 04/25/2013 Nurse visit Kaylynn Walker LUMBER BEARER 04/17/2013 Office visit Kaylynn Walker LUMBER BEARER 04/03/2013 Nurse visit Kaylynn Walker LUMBER BEARER 04/03/2013 Office visit Terese Davidson MD 03/28/2013 Office visit Sundeep Russell LUMBER BEARER 03/21/2013 Office visit Kaylynn Mendez LUMBER BEARER 03/20/2013 Office visit Terese Davidson MD 03/14/2013 Nurse visit Kaylynn Walker LUMBER BEARER 03/05/2013 Nurse visit Kaylynn Walker LUMBER BEARER 02/19/2013 Office visit Terese Davidson MD 02/16/2013 Nurse visit Kaylynn Walker LUMBER BEARER 02/09/2013 Office visit Sundeep Russell LUMBER BEARER 02/08/2013 Nurse visit Kaylynn Walker LUMBER BEARER 02/01/2013 Nurse visit Kaylynn Walker LUMBER BEARER 01/26/2013 Nurse visit Sabrina Andrea APPEALS ANALYST 01/25/2013 Office visit Kaylynn Walker LUMBER BEARER 01/22/2013 Office visit Yoan Castaneda MD 01/18/2013 Nurse visit Kaylynn Walker LUMBER BEARER 01/11/2013 Nurse visit Kaylynn Walker LUMBER BEARER 01/05/2013 Nurse visit Kaylynn Walker LUMBER BEARER 12/29/2012 Office visit Kaylynn Walker LUMBER BEARER 11/27/2012 Office visit Kaylynn Mendez LUMBER BEARER 11/08/2012 Office visit Odell Tierney MD 11/08/2012 Voided Odell Tierney MD 11/07/2012 Office visit Kaylynn Walker LUMBER BEARER 10/31/2012 [facility] John Hoskins MD 10/31/2012 Office visit Kaylynn Walker LUMBER BEARER 10/19/2012 Office visit Genoveva Ayala LUMBER BEARER 10/10/2012 Office visit Kaylynn Walker LUMBER BEARER 10/03/2012 Office visit Kaylynn Walker LUMBER BEARER 09/26/2012 Office visit Kaylynn Walker LUMBER BEARER 09/06/2012 Office visit Kaylynn Mendez LUMBER BEARER 09/06/2012 Office visit Odell Tierney MD 08/31/2012 Voided Kaylynn Mendez LUMBER BEARER 07/28/2012 Office visit Kaylynn Walker LUMBER BEARER 07/27/2012 Office visit David Joyner DO 07/20/2012 [facility] David Joyner DO 07/13/2012 [facility] David Joyner DO 07/11/2012 Office visit Kaylynn Mendez LUMBER BEARER 06/27/2012 [facility] Odell Tierney MD 06/21/2012 Office visit David Joyner DO 06/21/2012 Office visit Odell Tierney MD 06/20/2012 Office visit Brittni Yanez LUMBER BEARER 06/06/2012 Office visit Odell Tierney MD 05/03/2012 Office visit Kaylynn Mendez LUMBER BEARER 04/28/2012 Office visit Brittni Yanez LUMBER BEARER 04/11/2012 Office visit Kaylynn Mendez LUMBER BEARER 04/06/2012 [facility] John Hoskins MD 03/30/2012 Office visit Kaylynn Mendez LUMBER BEARER 03/15/2012 Office visit Kaylynn Mendez LUMBER BEARER 03/15/2012 Office visit Odell Tierney MD 02/09/2012 Office visit Kaylynn Mendez LUMBER BEARER 12/23/2011 Office visit Kaylynn Mendez LUMBER BEARER 11/02/2011 Office visit Kaylynn Mendez LUMBER BEARER 10/14/2011 Office visit Kaylynn Mendez LUMBER BEARER 09/27/2011 Office visit Kaylynn Mendez LUMBER BEARER 08/19/2011 [facility] John Hoskins MD 08/18/2011 [facility] John Hoskins MD 08/18/2011 Office visit Kaylynn Mendez LUMBER BEARER 08/02/2011 Office visit Kaylynn Mendez LUMBER BEARER 07/08/2011 Office visit Kaylynn Andrea LUMBER BEARER 07/05/2011 Office visit Odell Tierney MD 06/15/2011 Office visit Kaylynn Mendez LUMBER BEARER 05/14/2011 Office visit Kaylynn Mendez LUMBER BEARER 05/11/2011 Office visit Odell Tierney MD 04/28/2011 Office visit Kaylynn Mendez LUMBER BEARER 03/02/2011 Office visit Chadd Norris DO 02/17/2011 Office visit Chadd Norris DO 01/19/2011 Office visit Odell Tierney MD 12/16/2010 Office visit Odell Tierney MD 12/02/2010 Office visit Yoan Csataneda MD 11/24/2010 Office visit Chadd Norris DO [...]
--- OUTSIDE RECORDS SUMMARY | 2018-05-09 18:10 | XMS REPORT ---
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 Itaconix DelTokalas Lancets 33 gauge miscellaneous misc 01/21/2016 use as directed curated.by miscellaneous strip 01/21/2016 07/19/2016 Test 2x daily, [...] 08/27/2014 use as directed for 99 days [place] 5-325 mg oral tablet 06/17/2014 06/27/2014 take [...] a day as needed for 30 days gsrkysam-ruglpapwa-NP 3.5-10,000-1 mg/mL-unit/mL-% otic drops,suspension 201401/08/2015 instill 4 [...] Reviewed 04/28/2011 12:00 AM Decadron 1 mg ND#[id number] (Jr) Reviewed 04/28/2011 12:00 AM Depo-Medrol 80 mg NDC#[id number]-Bzirjaak Reviewed 09/02/2015 12:00 AM Toradol 60 Mg NDC#1251-9751-21 Reviewed 09/02/2015 12:00 AM Phenergan, Up to 50 Mg RHC Medicaid Reviewed 09/16/2015 12:00 AM Toradol 60 Mg NDC#2191-1829-26 Reviewed 09/16/2015 12:00 AM Phenergan Up to 50 mg RHC Medicare Reviewed 05/11/2011 12:00 AM N BLOCK INJ OCCIPITAL Reviewed 05/11/2011 12:00 AM Kenalog Gr-[address]-20 ANNA Reviewed 11/13/2015 12:00 AM ASSAY OF [...] INJ SC/IM Reviewed 07/08/2011 12:00 AM Toradol,15mg [facility]#[id number], [place] Reviewed 07/08/2011 12:00 AM Phenergan 50 Mg Im [facility] 0337-0668-26 FP [place] Reviewed 01/21/2016 12:00 AM ECG MONIT/REPRT UP TO 48 HRS Returned 08/02/2011 12:00 AM THER/PROPH/DIAG INJ SC/IM Reviewed 08/02/2011 12:00 AM Decadron 1 mg ND#[id number] (Jr) Reviewed 08/02/2011 12:00 AM Depo-Medrol 80 mg ND#[id number]-Sjgoitkq Reviewed 03/05/2016 12:00 AM COMPLETE CBC W/AUTO DIFF WBC Returned 03/05/2016 12:00 AM STREP A ASSAY W/OPTIC Returned 03/05/2016 12:00 AM C-REACTIVE PROTEIN Returned 03/18/2016 12:00 AM [facility] MEDICARE - flu vaccine administration Reviewed 03/18/2016 [...] Reviewed 09/27/2011 12:00 AM Depo-Medrol [address] [facility]#[id number]-Jzvpindb Reviewed 07/06/2016 12:00 AM CHEST X-RAY 4/> VIEWS Returned 10/14/2011 12:00 AM X-RAY EXAM OF ABDOMEN Reviewed 10/14/2011 12:00 AM URINALYSIS AUTO W/O SCOPE Reviewed 12/23/2011 12:00 AM THER/PROPH/DIAG INJ SC/IM Reviewed 12/23/2011 12:00 AM Decadron 1 mg ND#[id number] (Jr) Reviewed 12/23/2011 12:00 AM Depo-Medrol 80 mg ND#[id number]-Hwyjuufc Reviewed 02/09/2012 12:00 AM THER/PROPH/DIAG INJ SC/IM Reviewed 02/09/2012 12:00 AM Decadron 1 mg ND#[id number] (Jr) Reviewed 02/09/2012 12:00 AM Depo-Medrol 80 mg ND#[id number]-Sljkrvsz Reviewed 03/15/2012 12:00 AM N BLOCK INJ OCCIPITAL Reviewed 03/15/2012 12:00 AM Kenalog Sb-[address]-20 ANNA Reviewed 04/11/2012 12:00 AM COMPLETE CBC W/AUTO DIFF WBC Reviewed 04/11/2012 12:00 AM COMPREHEN METABOLIC PANEL Reviewed 04/11/2012 12:00 AM LIPID PANEL Reviewed 04/11/2012 12:00 AM ASSAY THYROID STIM HORMONE Reviewed 06/20/2012 12:00 AM THER/PROPH/DIAG INJ SC/IM Reviewed 06/20/2012 12:00 AM Decadron, Per 1 Mg ND# [address]-71 Reviewed 06/20/2012 12:00 AM Depo-Medrol, Per 80 Mg ND#0177-3465-00 Reviewed 09/06/2012 12:00 AM N BLOCK INJ OCCIPITAL Reviewed 09/06/2012 12:00 AM Kenalog Nt-[address]-20 ANNA Reviewed 09/06/2012 12:00 AM X-RAY EXAM RIBS UNI 2 VIEWS Reviewed 09/26/2012 12:00 AM THER/PROPH/DIAG INJ SC/IM Reviewed 09/26/2012 12:00 AM Decadron, Per 1 Mg ND# [address]-29 Reviewed 09/26/2012 12:00 AM Depo-Medrol, Per 80 Mg ND#5581-2797-55 Reviewed 10/03/2012 12:00 AM URINALYSIS AUTO W/O SCOPE Reviewed 10/03/2012 12:00 AM THER/PROPH/DIAG INJ SC/IM Reviewed 10/03/2012 12:00 AM Toradol 60 Mg ND#3729-5174-45 Reviewed 10/03/2012 12:00 AM Phenergan, 25Mg ND#4519-9509-92 Reviewed 10/19/2012 12:00 AM N BLOCK INJ OCCIPITAL Reviewed 10/19/2012 12:00 AM Kenalog, Per 10 Mg ND#9046-8092-52 Reviewed 10/19/2012 12:00 AM Toradol [address] [facility]#[id number] Reviewed 10/19/2012 12:00 AM THER/PROPH/DIAG INJ SC/IM Reviewed 10/31/2012 12:00 AM COMPLETE CBC W/AUTO DIFF WBC Reviewed 10/31/2012 12:00 AM COMPREHEN METABOLIC PANEL Reviewed 10/31/2012 12:00 AM LIPID PANEL Reviewed 11/03/2012 12:[address] THORAX W/O & W/DYE Reviewed 11/08/2012 12:00 AM N BLOCK INJ OCCIPITAL Reviewed 11/08/2012 12:00 AM Kenalog Ko-[address]-20 ANNA Reviewed 11/27/2012 12:00 AM COMPLETE CBC [...] 01/25/2013 12:00 AM Decadron, Per [address] [facility]# [address]-56 Reviewed 01/25/2013 12:00 AM Depo-Medrol, Per [address] [facility]#[id number] Reviewed 01/26/2013 12:00 AM IMMUNOTHERAPY INJECTIONS Reviewed [...] 05/16/2013 12:00 AM Decadron, Per [address] [facility]# [address]-81 Reviewed 05/16/2013 12:00 AM Depo-Medrol, Per [address] [facility]#[id number] Reviewed 05/31/2013 12:00 AM IMMUNOTHERAPY INJECTIONS Reviewed 06/08/2013 12:00 AM IMMUNOTHERAPY INJECTIONS Reviewed 06/14/2013 12:00 AM IMMUNOTHERAPY INJECTIONS Reviewed 06/28/2013 12:00 AM IMMUNOTHERAPY INJECTIONS Reviewed 07/12/2013 12:00 AM X-RAY EXAM RIBS UNI 2 VIEWS Reviewed 07/18/2013 12:00 AM Toradol [address] [facility]#[id number] Reviewed 07/18/2013 12:00 AM THER/PROPH/DIAG INJ SC/IM Reviewed 08/23/2013 12:00 AM COMPLETE CBC W/AUTO DIFF WBC Reviewed 08/23/2013 12:00 AM COMPREHEN METABOLIC PANEL Reviewed 08/23/2013 12:00 AM LIPID PANEL Reviewed 08/31/2013 12:00 AM X-RAY EXAM OF LOWER LEG Reviewed 09/04/2013 12:00 AM IMMUNOTHERAPY INJECTIONS Reviewed 09/14/2013 12:00 AM THER/PROPH/DIAG INJ SC/IM Reviewed 09/14/2013 12:00 AM Decadron, Per [address] [facility]# [id number] Reviewed 09/14/2013 12:00 AM Depo-Medrol, Per [address] [facility]#4847-6496-91 Reviewed 09/20/2013 12:00 AM IMMUNOTHERAPY INJECTIONS Reviewed [...] INJ OCCIPITAL Reviewed 12/10/2009 12:00 AM Kenalog Fy-[address]-20 ANNA Reviewed 12/16/2009 12:00 AM HIV-1ANTIBODY Reviewed 12/16/2009 12:00 AM COMPLETE CBC W/AUTO DIFF WBC Reviewed 12/16/2009 12:00 AM METABOLIC PANEL TOTAL CA Reviewed 12/16/2009 12:00 AM Type and screen Reviewed 12/16/2009 12:00 AM PROTHROMBIN TIME Reviewed 12/16/2009 12:00 AM THROMBOPLASTIN TIME PARTIAL Reviewed 03/18/2010 12:00 AM DRAIN/INJ JOINT/BURSA W/O US Reviewed 03/18/2010 12:00 AM Kengretta Vr-[address]-20 ANNA Reviewed 11/21/2013 12:00 AM RADEX HAND MINIMUM 3 VIEWS Reviewed 06/03/2010 12:00 AM INJ TRIGGER POINT 1/2 MUSCL Reviewed 06/03/2010 12:00 AM Kenalog per 10Mg -[facility]#[address]-35(Niall) Reviewed 12/05/2013 12:00 AM COMPLETE CBC W/AUTO [...] Reviewed 07/23/2010 12:00 AM Kenalog per 10Mg Im-[facility]#[address]-38(Niall) Reviewed 2014 12:00 AM COMPLETE CBC W/AUTO [...] INJ OCCIPITAL Reviewed 10/01/2010 12:00 AM Kenalog Jk-[address]-20 ANNA Reviewed 07/25/2014 12:00 AM THER/PROPH/DIAG INJ [...] 141 Influenza 04/24/2014 sanofi pasteur PMC Fluzone [id number] Intramuscular Left Upper Arm 02/27/2014 01/15/2014 141 Influenza 02/13/2015 sanofi pasteur PMC Fluzone [id number] Intramuscular Left Deltoid 02/13/2015 01/03/2015 140 Tdap 06/06/2015 Gl[employer]oSmith[employer] SKB BOOSTRIX [id number] Intramuscular Left Deltoid 06/06/2015 07/23/2014 115 Influenza 03/18/2016 sanofi pasteur PMC Fluzone [id number] Intramuscular Left Deltoid 03/17/2016 01/03/2015 141 History [...] 2016 3:25PM Cervicalgia Jul 09 2016 3:25PM Payers Insurance Name Company Name Plan Name Plan Number Policy Number Policy Group Number Start Date Medicare [facility] Medicare [facility] [id number] N/A [facility] - [facility] - [facility] Comm [id number] N/A Medicare Part A Medicare - Lab/Xray [id number] N/A Medicare Part B Medicare Of [place] [id number] Monday, February 28, 2000 [place] [employer] [place] [employer] [place] [id number] Tuesday, November 10, 2009 Medicare Part A Medicare Part A [id number] N/A [employer] [place] [employer] - [employer] [id number] May [facility] [place] Plan of [place] [facility] Plan of [id number] Wednesday, May 30, 2012 History of Encounters Visit Date Visit Type Provider 07/09/2016 Office visit Riccardo Cardoza MD 07/06/2016 Office visit Heena Dumont MD 06/18/2016 Office visit Kaylynn Mendez BENEFITS TECHNICIAN 06/07/2016 Office visit Sundeep Russell BENEFITS TECHNICIAN 06/04/2016 Office visit Heena Dumont MD 05/13/2016 Office visit Heena Dumont MD 05/03/2016 Office visit Heena Dumont MD 04/26/2016 Office visit Kaylynn Mendez BENEFITS TECHNICIAN 04/14/2016 Office visit Heena Dumont MD 04/13/2016 Office visit Kaylynn Mendez BENEFITS TECHNICIAN 04/02/2016 Office visit Lena El BENEFITS TECHNICIAN 04/02/2016 Office visit Heena Dumont MD 03/26/2016 Office visit Yesica Falcon BENEFITS TECHNICIAN 03/17/2016 Office visit Heena Dumont MD 03/05/2016 Office visit Kaylynn Mendez BENEFITS TECHNICIAN 02/16/2016 Office visit Heena Dumont MD 02/14/2016 Office visit Na Jones BENEFITS TECHNICIAN 01/16/2016 Office visit Heena Dumont MD 12/16/2015 Office visit Heena Dumont MD 11/24/2015 Office visit Kaylynn Mendez BENEFITS TECHNICIAN 11/18/2015 Office visit Heena Dumont MD 11/03/2015 Office visit Sundeep Russell BENEFITS TECHNICIAN 10/20/2015 Office visit Kaylynn Mendez BENEFITS TECHNICIAN 09/23/2015 Office visit Kaylynn Mendez BENEFITS TECHNICIAN 09/16/[address] Pepe Figueroa MD 09/02/2015 Office visit Kaylynn Mendez BENEFITS TECHNICIAN 09/01/2015 Office visit Kaylynn Mendez BENEFITS TECHNICIAN 07/30/2015 Office visit Heena Dumont MD 07/15/2015 Office visit Kaylynn Mendez BENEFITS TECHNICIAN 07/04/2015 Office visit Heena Dumont MD 06/06/2015 Office visit Heena Dumont MD 06/06/2015 Office visit Kaylynn Mendez BENEFITS TECHNICIAN 06/02/2015 Office visit Kaylynn Walker BENEFITS TECHNICIAN 05/26/2015 Office visit Kaylynn Walker BENEFITS TECHNICIAN 05/20/2015 Office visit Kaylnyn Walker BENEFITS TECHNICIAN 05/08/2015 Office visit Heena Dumont MD 05/06/2015 Office visit Kaylynn Walker BENEFITS TECHNICIAN 04/29/2015 Office visit Kaylynn Walker BENEFITS TECHNICIAN 03/27/2015 Voided Brittni Yanez BENEFITS TECHNICIAN 03/21/2015 Office visit Heena Dumont MD 03/12/2015 Office visit Kaylynn Mendez BENEFITS TECHNICIAN 02/26/2015 Office visit Brittni Yanez BENEFITS TECHNICIAN 02/13/2015 Office visit Heena Dumont MD 01/15/2015 Office visit Brittni Yanez BENEFITS TECHNICIAN 01/13/2015 Office visit Heena Dumont MD 01/08/[address] Carol Fowler MD 01/01/2015 Office visit Brittni Yanez BENEFITS TECHNICIAN 12/13/2014 Office visit Heena Dumont MD 11/27/2014 Office visit Kaylynn Mendez BENEFITS TECHNICIAN 11/14/2014 Office visit Heena Dumont MD 10/18/2014 Office visit Heena Dumont MD 10/17/2014 [facility] John Hoskins MD 10/09/2014 Office visit Heena Dumont MD 09/25/2014 Office visit Heena Dumont MD 09/17/2014 Office visit Kaylynn Mendez BENEFITS TECHNICIAN 09/04/2014 Office visit Heena Dumont MD 08/28/2014 Office visit Kaylynn Mendez BENEFITS TECHNICIAN 08/23/2014 [facility] John Hoskins MD 08/01/2014 Office visit aKylynn Mendez BENEFITS TECHNICIAN 07/29/2014 Office visit Heena Dumont MD 07/25/2014 Nurse visit Heena Dumont MD 07/17/2014 Office visit Kaylynn Mendez BENEFITS TECHNICIAN 07/11/2014 Office visit Heena Dumont MD 07/01/2014 Office visit Heena Dumont MD 06/25/2014 Office visit Kaylynn Mendez BENEFITS TECHNICIAN 06/12/2014 Office visit Kaylynn Mendez BENEFITS TECHNICIAN 06/06/2014 Office visit Kaylynn Mendez BENEFITS TECHNICIAN 05/27/2014 Office visit Heena Dumont MD 04/20/2014 Office visit Yesica Falcon BENEFITS TECHNICIAN 03/29/2014 Office visit Na Jones BENEFITS TECHNICIAN 03/15/2014 Office visit Heena Dumont MD 2014 Office visit Heena Dumont MD 2014 [facility] John Hoskins MD 02/27/2014 Nurse visit Heena Dumont MD 02/13/2014 Office visit Lena El BENEFITS TECHNICIAN 02/07/2014 Office visit Heena Dumont MD 02/03/2014 Office visit Na Jones BENEFITS TECHNICIAN 01/30/2014 Office visit Kaylynn Mendez BENEFITS TECHNICIAN 01/24/2014 Office visit Sundeep Russell BENEFITS TECHNICIAN 01/16/2014 Office visit Kaylynn Walker BENEFITS TECHNICIAN 01/10/2014 Nurse visit Kaylynn Walker BENEFITS TECHNICIAN 01/08/2014 Office visit Kaylynn Walker BENEFITS TECHNICIAN 12/05/2013 Office visit Kaylynn Walker BENEFITS TECHNICIAN 11/21/2013 Office visit Kaylynn Walker BENEFITS TECHNICIAN 10/23/2013 Office visit Brittni Yanez BENEFITS TECHNICIAN 10/17/2013 Nurse visit Heena Dumont MD 10/12/2013 Office visit Kaylynn Walker BENEFITS TECHNICIAN 10/02/2013 Office visit Heena Dumont MD 09/20/2013 Nurse visit Kaylynn Mendez BENEFITS TECHNICIAN 09/20/2013 Voided Heena Dumont MD 09/14/2013 Office visit Kaylynn Walker BENEFITS TECHNICIAN 09/05/2013 Office visit Sundeep Russell BENEFITS TECHNICIAN 09/04/2013 Nurse visit Kaylynn Mendez BENEFITS TECHNICIAN 08/31/2013 Office visit Kaylynn Walker BENEFITS TECHNICIAN 08/23/2013 Office visit Heena Dumont MD 08/10/2013 Office visit Kaylynn Walker BENEFITS TECHNICIAN 07/25/2013 Office visit Kaylynn Walker BENEFITS TECHNICIAN 07/18/2013 Office visit Kaylynn Walker BENEFITS TECHNICIAN 07/12/2013 Office visit Kaylynn Walker BENEFITS TECHNICIAN 06/28/2013 Nurse visit Kaylynn Walker BENEFITS TECHNICIAN 06/14/2013 Nurse visit Kaylynn Walker BENEFITS TECHNICIAN 06/08/2013 Nurse visit Kaylynn Walker BENEFITS TECHNICIAN 05/31/2013 Nurse visit Chadd Norris DO 05/18/2013 Office visit Terese Davidson MD 05/16/2013 Office visit Kaylynn Mendez BENEFITS TECHNICIAN 05/09/2013 Office visit Kaylynn Mendez BENEFITS TECHNICIAN 04/29/2013 [facility] John Hoskins MD 04/25/2013 Nurse visit Kaylynn Walker BENEFITS TECHNICIAN 04/17/2013 Office visit Kaylynn Walker BENEFITS TECHNICIAN 04/03/2013 Nurse visit Kaylynn Walker BENEFITS TECHNICIAN 04/03/2013 Office visit Terese Davidson MD 03/28/2013 Office visit Sundeep Russell BENEFITS TECHNICIAN 03/21/2013 Office visit Kaylynn Mendez BENEFITS TECHNICIAN 03/20/2013 Office visit Terese Davidson MD 03/14/2013 Nurse visit Kaylynn Mendez BENEFITS TECHNICIAN 03/05/2013 Nurse visit Kaylynn Mendez BENEFITS TECHNICIAN 02/19/2013 Office visit Terese Davidson MD 02/16/2013 Nurse visit Kaylynn Walker BENEFITS TECHNICIAN 02/09/2013 Office visit Sundeep Russell BENEFITS TECHNICIAN 02/08/2013 Nurse visit Kaylynn Andrea BENEFITS TECHNICIAN 02/01/2013 Nurse visit Kaylynn Andrea BENEFITS TECHNICIAN 01/26/2013 Nurse visit Sabrina Andrea VOICE OVER ARTIST 01/25/2013 Office visit Kaylynn Andrea BENEFITS TECHNICIAN 01/22/2013 Office visit Yoan Castaneda MD 01/18/2013 Nurse visit Kaylynn Andrea BENEFITS TECHNICIAN 01/11/2013 Nurse visit Kaylynn Walker BENEFITS TECHNICIAN 01/05/2013 Nurse visit Kaylynn Walker BENEFITS TECHNICIAN 12/29/2012 Office visit Kaylynn Andrea BENEFITS TECHNICIAN 11/27/2012 Office visit Kaylynn Mendez BENEFITS TECHNICIAN 11/08/2012 Office visit Odell Tierney MD 11/08/2012 Voided Odell Tierney MD 11/07/2012 Office visit Kaylynn Mendez BENEFITS TECHNICIAN 10/31/2012 [facility] John Hoskins MD 10/31/2012 Office visit Kaylynn Mendez BENEFITS TECHNICIAN 10/19/2012 Office visit Genoveva Ayala BENEFITS TECHNICIAN 10/10/2012 Office visit Kaylynn Mendez BENEFITS TECHNICIAN 10/03/2012 Office visit Kaylynn Andrea BENEFITS TECHNICIAN 09/26/2012 Office visit Kaylynn Mendez BENEFITS TECHNICIAN 09/06/2012 Office visit Kaylynn Mendez BENEFITS TECHNICIAN 09/06/2012 Office visit Odell Tierney MD 08/31/2012 Voided Kaylynn Mendez BENEFITS TECHNICIAN 07/28/2012 Office visit Kaylynn Mendez BENEFITS TECHNICIAN 07/27/2012 Office visit David Joyner DO 07/20/2012 [facility] 07/11/2012 Office visit Kaylynn Mendez BENEFITS TECHNICIAN 06/27/2012 [facility] Odell Tierney MD 06/21/2012 Office visit David Joyner DO 06/21/2012 Office visit Odell Tierney MD 06/20/2012 Office visit Brittni Yanez BENEFITS TECHNICIAN 06/06/2012 Office visit Odell Tierney MD 05/03/2012 Office visit Kaylynn Mendez BENEFITS TECHNICIAN 04/28/2012 Office visit Brittni Yanez BENEFITS TECHNICIAN 04/11/2012 Office visit Kaylynn Mendez BENEFITS TECHNICIAN 04/06/2012 [facility] John Hoskins MD 03/30/2012 Office visit Kaylynn Mendez BENEFITS TECHNICIAN 03/15/2012 Office visit Kaylynn Mendez BENEFITS TECHNICIAN 03/15/2012 Office visit Odell Tierney MD 02/09/2012 Office visit Kaylynn Mendez BENEFITS TECHNICIAN 12/23/2011 Office visit Kaylynn Mendez BENEFITS TECHNICIAN 11/02/2011 Office visit Kaylynn Mendez BENEFITS TECHNICIAN 10/14/2011 Office visit Kaylynn Mendez BENEFITS TECHNICIAN 09/27/2011 Office visit Kaylynn Mendez BENEFITS TECHNICIAN 08/19/2011 [facility] John Hoskins MD 08/18/2011 [facility] John Hoskins MD 08/18/2011 Office visit Kaylynn Mendez BENEFITS TECHNICIAN 08/02/2011 Office visit Kaylynn Mendez BENEFITS TECHNICIAN 07/08/2011 Office visit Kaylynn Mendez BENEFITS TECHNICIAN 07/05/2011 Office visit Odell Tierney MD 06/15/2011 Office visit Kaylynn Mendez BENEFITS TECHNICIAN 05/14/2011 Office visit Kaylynn Mendez BENEFITS TECHNICIAN 05/11/2011 Office visit Odell Tierney MD 04/28/2011 Office visit Kaylynn Mendez BENEFITS TECHNICIAN 03/02/2011 Office visit Chadd Norris DO 02/17/2011 [...]
--- OUTSIDE RECORDS SUMMARY | 2018-05-09 18:16 | XMS REPORT ---
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 mvyrlasw-bplihlrep-YG 3.5-10,000-1 mg/mL-unit/mL-% otic drops,suspension 201607/23/2016 instill 4 [...] 12:00 AM Decadron 1 mg [facility]#[id number] (Jr) Reviewed 04/28/2011 12:00 AM Depo-Medrol 80 mg [facility]#[id number]-Rgidkcav Reviewed 09/02/2015 12:00 AM Toradol 60 Mg ND#6770-1839-50 Reviewed 09/02/2015 12:00 AM Phenergan, Up to 50 Mg [facility] Medicaid Reviewed 09/16/2015 12:00 AM Toradol 60 Mg ND#5087-0994-26 Reviewed 09/16/2015 12:00 AM Phenergan Up to 50 mg [facility] Medicare Reviewed 05/11/2011 12:00 AM N BLOCK INJ OCCIPITAL Reviewed 05/11/2011 12:00 AM Kengretta On-[address]-20 ANNA Reviewed 11/13/2015 12:00 AM ASSAY OF [...] Reviewed 07/08/2011 12:00 AM Toradol,15mg [facility]#[id number], [place] Reviewed 07/08/2011 12:00 AM Phenergan 50 Mg Im [facility] 1933-6753-10 [place] Reviewed 01/21/2016 12:00 AM ECG MONIT/REPRT UP TO 48 HRS Returned 08/02/2011 12:00 AM THER/PROPH/DIAG INJ SC/IM Reviewed 08/02/2011 12:00 AM Decadron 1 mg [facility]#[id number] (Jr) Reviewed 08/02/2011 12:00 AM Depo-Medrol 80 mg [facility]#[id number]-Kabtatpl Reviewed 03/05/2016 12:00 AM COMPLETE CBC W/AUTO DIFF WBC Reviewed 03/05/2016 12:00 AM STREP A ASSAY W/OPTIC Reviewed 03/05/2016 12:00 AM C-REACTIVE PROTEIN Reviewed 03/18/2016 12:00 AM [facility] MEDIC[facility] - flu vaccine administration Reviewed 03/18/2016 [...] Reviewed 09/27/2011 12:00 AM Depo-Medrol 80 mg ND#[id number]-Sptovyvy Reviewed 09/27/2011 12:00 AM Depo-Medrol 40 mg [facility]#[id number] Reviewed 07/06/2016 12:00 AM CHEST X-RAY 4/> [...] Reviewed 12/23/2011 12:00 AM Decadron 1 mg [facility]#[id number] (Jr) Reviewed 12/23/2011 12:00 AM Depo-Medrol 80 mg [facility]#[id number]-Gusnwmli Reviewed 11/02/2016 11:45 AM URINALYSIS AUTO W/O [...] Reviewed 02/09/2012 12:00 AM Decadron 1 mg [facility]#[id number] (Jr) Reviewed 02/09/2012 12:00 AM Depo-Medrol 80 mg [facility]#[id number]-Apueexwu Reviewed 03/15/2012 12:00 AM N BLOCK INJ OCCIPITAL Reviewed 03/15/2012 12:00 AM Kenalog Wf-[address]-20 ANNA Reviewed 04/11/2012 12:00 AM COMPLETE CBC W/AUTO DIFF WBC Reviewed 04/11/2012 12:00 AM COMPREHEN METABOLIC PANEL Reviewed 04/11/2012 12:00 AM LIPID PANEL Reviewed 04/11/2012 12:00 AM ASSAY THYROID STIM HORMONE Reviewed 04/11/2012 12:00 AM DESTRUCT PREMALG LES 2-14 Reviewed 06/20/2012 12:00 AM THER/PROPH/DIAG INJ SC/IM Reviewed 06/20/2012 12:00 AM Decadron, Per 1 Mg ND# [address]-19 Reviewed 06/20/2012 12:00 AM Depo-Medrol, Per 80 Mg ND#1259-4751-57 Reviewed 09/06/2012 12:00 AM N BLOCK INJ OCCIPITAL Reviewed 09/06/2012 12:00 AM Kenalog Cg-[address]-20 ANNA Reviewed 09/06/2012 12:00 AM X-RAY EXAM RIBS UNI 2 VIEWS Reviewed 09/26/2012 12:00 AM THER/PROPH/DIAG INJ SC/IM Reviewed 09/26/2012 12:00 AM Decadron, Per 1 Mg ND# [address]-29 Reviewed 09/26/2012 12:00 AM Depo-Medrol, Per 80 Mg ND#3520-2111-62 Reviewed 10/03/2012 12:00 AM URINALYSIS AUTO W/O SCOPE Reviewed 10/03/2012 12:00 AM THER/PROPH/DIAG INJ SC/IM Reviewed 10/03/2012 12:00 AM Toradol 60 Mg ND#4851-7285-07 Reviewed 10/03/2012 12:00 AM Phenergan, 25Mg ND#5132-8141-92 Reviewed 10/19/2012 12:00 AM N BLOCK INJ OCCIPITAL Reviewed 10/19/2012 12:00 AM Kenalog, Per 10 Mg ND#5576-9531-03 Reviewed 10/19/2012 12:00 AM Toradol 30 Mg ND#0583-8800-66 Reviewed 10/19/2012 12:00 AM THER/PROPH/DIAG INJ SC/IM Reviewed 10/31/2012 12:00 AM COMPLETE CBC W/AUTO DIFF WBC Reviewed 10/31/2012 12:00 AM COMPREHEN METABOLIC PANEL Reviewed 10/31/2012 12:00 AM LIPID PANEL Reviewed 10/31/2012 12:00 AM ELECTROCARDIOGRAM COMPLETE Reviewed 11/03/2012 12:[address] THORAX W/O & W/DYE Reviewed 11/08/2012 12:00 AM N BLOCK INJ OCCIPITAL Reviewed 11/08/2012 12:00 AM Kengretta Uy-[address]-20 ANNA Reviewed 11/27/2012 12:00 AM COMPLETE CBC [...] AM Decadron, Per 1 Mg [facility]# [address]-69 Reviewed 01/25/2013 12:00 AM Depo-Medrol, Per 80 Mg [facility]#6669-0521-73 Reviewed 01/26/2013 12:00 AM IMMUNOTHERAPY ONE INJECTION [...] AM Decadron, Per 1 Mg [facility]# [address]-75 Reviewed 05/16/2013 12:00 AM Depo-Medrol, Per 80 Mg [facility]#6331-8549-63 Reviewed 05/31/2013 12:00 AM IMMUNOTHERAPY INJECTIONS Reviewed 06/08/2013 12:00 AM IMMUNOTHERAPY INJECTIONS Reviewed 06/14/2013 12:00 AM IMMUNOTHERAPY INJECTIONS Reviewed 06/28/2013 12:00 AM IMMUNOTHERAPY INJECTIONS Reviewed 07/12/2013 12:00 AM X-RAY EXAM RIBS UNI 2 VIEWS Reviewed 07/18/2013 12:00 AM Toradol 60 Mg [facility]#1813-7036-13 Reviewed 07/18/2013 12:00 AM THER/PROPH/DIAG INJ SC/IM Reviewed 08/23/2013 12:00 AM COMPLETE CBC W/AUTO DIFF WBC Reviewed 08/23/2013 12:00 AM COMPREHEN METABOLIC PANEL Reviewed 08/23/2013 12:00 AM LIPID PANEL Reviewed 08/31/2013 12:00 AM X-RAY EXAM OF LOWER LEG Reviewed 09/04/2013 12:00 AM IMMUNOTHERAPY INJECTIONS Reviewed 09/14/2013 12:00 AM THER/PROPH/DIAG INJ SC/IM Reviewed 09/14/2013 12:00 AM Decadron, Per 1 Mg [facility]# [address]-13 Reviewed 09/14/2013 12:00 AM Depo-Medrol, Per 80 Mg [facility]#4855-7306-51 Reviewed 09/20/2013 12:00 AM IMMUNOTHERAPY INJECTIONS Reviewed [...] INJ OCCIPITAL Reviewed 12/10/2009 12:00 AM Kenalog Wb-[address]-20 ANNA Reviewed 12/16/2009 12:00 AM HIV-1ANTIBODY Reviewed 12/16/2009 12:00 AM COMPLETE CBC W/AUTO DIFF WBC Reviewed 12/16/2009 12:00 AM METABOLIC PANEL TOTAL CA Reviewed 12/16/2009 12:00 AM Type and screen Reviewed 12/16/2009 12:00 AM PROTHROMBIN TIME Reviewed 12/16/2009 12:00 AM THROMBOPLASTIN TIME PARTIAL Reviewed 03/18/2010 12:00 AM DRAIN/INJ JOINT/BURSA W/O US Reviewed 03/18/2010 12:00 AM Kengretta Er-[address]-20 ANNA Reviewed 11/21/2013 12:00 AM RADEX HAND MINIMUM 3 VIEWS Reviewed 06/03/2010 12:00 AM INJ TRIGGER POINT 1/2 MUSCL Reviewed 06/03/2010 12:00 AM Kenalog per 10Mg -[facility]#[address]-75(Niall) Reviewed 12/05/2013 12:00 AM COMPLETE CBC W/AUTO [...] Reviewed 07/23/2010 12:00 AM Kenalog per 10Mg Im-[facility]#[address]-70(Niall) Reviewed 2014 12:00 AM COMPLETE CBC W/AUTO [...] INJ OCCIPITAL Reviewed 10/01/2010 12:00 AM Kenalog Xn-[address]-20 ANNA Reviewed 07/25/2014 12:00 AM THER/PROPH/DIAG INJ [...] 141 Influenza 04/24/2014 sanofi pasteur PMC Fluzone [id number] Intramuscular Left Upper Arm 02/27/2014 01/15/2014 141 Influenza 02/13/2015 sanofi pasteur PMC Fluzone [id number] Intramuscular Left Deltoid 02/13/2015 01/03/2015 140 Tdap 06/06/2015 [employer] SKB BOOSTRIX [id number] Intramuscular Left Deltoid 06/06/2015 07/23/2014 115 Influenza 03/18/2016 sanofi pasteur PMC Fluzone [id number] Intramuscular Left Deltoid 03/17/2016 01/03/2015 141 History [...] Number Start Date Medicare RHC Medicare RHC [id number] N/A [facility] Plan [facility] Comm [id number] N/A Medicare Part A Medicare - Lab/Xray [id number] N/A Medicare Part B Medicare Of [place] [id number] Monday, February 28, 2000 [place] [facility] [place] [facility] [place] [id number] Tuesday, November 10, 2009 Medicare Part A Medicare Part A [id number] N/A [place] [employer] - RHC [place] [employer] - RHC [id number] May [facility] [place] [facility] Plan of [id number] Wednesday, May 30, 2012 History of Encounters Visit Date Visit Type Provider 01/07/2017 Office visit Riccardo Cardoza MD 01/03/2017 Office visit Heena Dumont MD 12/15/2016 Office visit Kaylynn Mendez [facility] MODEL 12/02/2016 Office visit Heena Dumont MD 11/23/2016 Office visit Kaylynn Mendez [employer] [facility] 11/17/2016 Office visit Kaylynn Mendez [employer] MODEL 11/05/2016 Office visit Riccardo Cardoza MD 11/02/2016 Office visit Heena Dumont MD 10/06/2016 Office visit Kaylynn Mendez [employer]ISTS[employer] MODEL 09/22/2016 Office visit Heena Dumont MD 09/09/2016 Office visit Kaylynn Mendez [employer]ISTS[facility] MODEL 08/27/2016 Office visit Riccardo Cardoza MD 08/26/2016 Office visit Heena Dumont MD 07/09/2016 Office visit Riccardo Cardoza MD 07/06/2016 Office visit Heena Dumont MD 06/18/2016 Office visit Kaylynn Mendez [employer]DEL 06/07/2016 Office visit Sundeep Russell [employer]DEL 06/04/2016 Office visit Heena Dumont MD 05/13/2016 Office visit Heena Dumont MD 05/03/2016 Office visit Heena Dumont MD 04/26/2016 Office visit Kaylynn Mendez [employer] MODEL 04/14/2016 Office visit Heena Dumont MD 04/13/2016 Office visit Kaylynn Mendez [employer]ISTS[employer] MODEL 04/02/2016 Office visit Lena El [employer] MODEL 04/02/2016 Office visit Heena Dumont MD 03/26/2016 Office visit Yesica Falcon [employer] MODEL 03/17/2016 Office visit Heena Dumont MD 03/05/2016 Office visit Kaylynn Mendez [employer] MODEL 02/16/2016 Office visit Heena Dumont MD 02/14/2016 Office visit Na Jones [employer] MODEL 01/16/2016 Office visit Heena Dumont MD 12/16/2015 Office visit Heena Dumont MD 11/24/2015 Office visit Kaylynn Mendez [employer]ISTS[employer] MODEL 11/18/2015 Office visit Heena Dumont MD 11/03/2015 Office visit Sundeep Russell [employer] [facility]DEL 10/20/2015 Office visit Kaylynn Walker [employer]DEL 09/23/2015 Office visit Kaylynn Walker [employer] MODEL 09/16/[address] Pepe Figueroa MD 09/02/2015 Office visit Kaylynn Walker [employer] MODEL 09/01/2015 Office visit Kaylynn Walker [employer]ISTS[employer] MODEL 07/30/2015 Office visit Heena Dumont MD 07/15/2015 Office visit Kaylynn Walker [employer] MODEL 07/04/2015 Office visit Heena Dumont MD 06/06/2015 Office visit Heena Dumont MD 06/06/2015 Office visit Kaylynn Walker [employer]ISTS' MODEL 06/02/2015 Office visit Kaylynn Walker ARTISTS' MODEL 05/26/2015 Office visit Kaylynn Walker [employer]ISTS' MODEL 05/20/2015 Office visit Kaylynn Mendez [employer]ISTS' MODEL 05/08/2015 Office visit Heena Dumont MD 05/06/2015 Office visit Kaylynn Mendez [employer] MODEL 04/29/2015 Office visit Kaylynn Mendez [employer]ISTS[employer] MODEL 03/27/2015 Voided Brittni Yanez [employer] MODEL 03/21/2015 Office visit Heena Dumont MD 03/12/2015 Office visit Kaylynn Mendez [employer] MODEL 02/26/2015 Office visit Brittni Yanez [employer]ISTS' MODEL 02/13/2015 Office visit Heena Dumont MD 01/15/2015 Office visit Brittni Yanez [employer]ISTS[employer] MODEL 01/13/2015 Office visit Heena Dumont MD 01/08/[address] Carol Fowler MD 01/01/2015 Office visit Brittni Yanez [employer] MODEL 12/13/2014 Office visit Heena Dumont MD 11/27/2014 Office visit Kaylynn Mendez [employer] MODEL 11/14/2014 Office visit Heena Dumont MD 10/18/2014 Office visit Heena Dumont MD 10/17/2014 Hospital John Hoskins MD 10/09/2014 Office visit Heena Dumont MD 09/25/2014 Office visit Heena Dumont MD 09/17/2014 Office visit Kaylynn Mendez [employer] MODEL 09/04/2014 Office visit Heena Dumont MD 08/28/2014 Office visit Kaylynn Mendez [employer]ISTS[employer] MODEL 08/23/2014 Hospital John Hoskins MD 08/01/2014 Office visit Kaylynn Mendez [employer]ISTS' MODEL 07/29/2014 Office visit Heena Dumont MD 07/25/2014 Nurse visit Heena Dumont MD 07/17/2014 Office visit Kaylynn Mendez [employer] MODEL 07/11/2014 Office visit Heena Dumont MD 07/01/2014 Office visit Heena Dumont MD 06/25/2014 Office visit Kaylynn Mendez [employer]ISTS' MODEL 06/12/2014 Office visit Kaylynn Mendez [employer]ISTS' MODEL 06/06/2014 Office visit Kaylynn Mendez [employer]ISTS[employer] MODEL 05/27/2014 Office visit Heena Dumont MD 04/20/2014 Office visit Yesica Falcon [employer] MODEL 03/29/2014 Office visit Na Jones [employer] MODEL 03/15/2014 Office visit Heena Dumont MD 2014 Office visit Heena Dumont MD 2014 [facility] Eliseo Hoskins MD 02/27/2014 Nurse visit Heena Dumont MD 02/13/2014 Office visit Lena El [employer]ISTS' MODEL 02/07/2014 Office visit Heena Dumont MD 02/03/2014 Office visit Na Jones [employer]ISTS' MODEL 01/30/2014 Office visit Kaylynn Mendez [employer] MODEL 01/24/2014 Office visit Sundeep Russell [employer]ISTS[employer] MODEL 01/16/2014 Office visit Kaylynn Mendez [employer]ISTS[employer] MODEL 01/10/2014 Nurse visit Kaylynn Mendez [employer]ISTS[employer] MODEL 01/08/2014 Office visit Kaylynn Walker [employer] MODEL 12/05/2013 Office visit Kaylynn Walker [employer]ISTS' MODEL 11/21/2013 Office visit Kaylynn Mendez [employer]ISTS' MODEL 10/23/2013 Office visit Brittni Yanez [employer] MODEL 10/17/2013 Nurse visit Heena Dumont MD 10/12/2013 Office visit Kaylynn Mendez [employer] MODEL 10/02/2013 Office visit Heena Dumont MD 09/20/2013 Nurse visit Kaylynn Mendez [employer]ISTS[employer] MODEL 09/20/2013 Voided Heena Dumont MD 09/14/2013 Office visit Kaylynn Walker [employer] MODEL 09/05/2013 Office visit Sundeep Rusesll [employer]ISTS' MODEL 09/04/2013 Nurse visit Kaylynn Walker [employer]ISTS[employer] MODEL 08/31/2013 Office visit Kaylynn Walker [employer]ISTS[employer] MODEL 08/23/2013 Office visit Heena Dumont MD 08/10/2013 Office visit Kaylynn Walker [employer]ISTS[employer] MODEL 07/25/2013 Office visit Kaylynn Walker ARTISTS' MODEL 07/18/2013 Office visit Kaylynn Walker ARTISTS' MODEL 07/12/2013 Office visit Kaylynn Walker [employer]ISTS[employer] MODEL 06/28/2013 Nurse visit Kaylynn Walker [employer]ISTS' MODEL 06/14/2013 Nurse visit Kaylynn Walker [employer]ISTS[employer] MODEL 06/08/2013 Nurse visit Kaylynn Walker [employer] MODEL 05/31/2013 Nurse visit Chadd Norris DO 05/18/2013 Office visit Terese Davidson MD 05/16/2013 Office visit Kaylynn Mendez [employer]DEL 05/09/2013 Office visit Kaylynn Walker [employer] MODEL 04/29/2013 [facility] John Hoskins MD 04/25/2013 Nurse visit Kaylynn Walker [employer]ISTS' MODEL 04/17/2013 Office visit Kaylynn Walker ARTISTS' MODEL 04/03/2013 Nurse visit Kaylynn Mendez [employer]ISTS[employer] MODEL 04/03/2013 Office visit Terese Davidson MD 03/28/2013 Office visit Sundeep Russell [employer] MODEL 03/21/2013 Office visit Kaylynn Mendez [employer]ISTS[employer] MODEL 03/20/2013 Office visit Terese Davidson MD 03/14/2013 Nurse visit Kaylynn Mendez [employer]ISTS[employer] MODEL 03/05/2013 Nurse visit Kaylynn Mendez [employer]ISTS[employer] MODEL 02/19/2013 Office visit Terese Davidson MD 02/16/2013 Nurse visit Kaylynn Mendez [employer]ISTS[employer] MODEL 02/09/2013 Office visit Sundeep Russell [employer]DEL 02/08/2013 Nurse visit Kaylynn Walker [employer] MODEL 02/01/2013 Nurse visit Kaylynn Mendez [employer] 01/26/2013 Nurse visit Sabrina Mendez ASSESSMENT RN 01/25/2013 Office visit Kaylynn Mendez [employer] 01/22/2013 Office visit Yoan Castaneda MD 01/18/2013 Nurse visit Kaylynn Walker [employer] 01/11/2013 Nurse visit Kaylynn Walker [employer]DEL 01/05/2013 Nurse visit Kaylynn Walker [employer]DEL 12/29/2012 Office visit Kaylynn Mendez [employer] MODEL 11/27/2012 Office visit Kaylynn Mendez [employer]ISTS[employer] MODEL 11/08/2012 Office visit Odell Tierney MD 11/08/2012 Voided Odell Tierney MD 11/07/2012 Office visit Kaylynn Mendez [employer]DEL 10/31/2012 [facility] John Hoskins MD 10/31/2012 Office visit Kaylynn Mendez [employer]ISTS[employer] MODEL 10/19/2012 Office visit Genoveva Ayala [employer] MODEL 10/10/2012 Office visit Kaylynn Mendez [employer]ISTS[employer] MODEL 10/03/2012 Office visit Kaylynn Walker [employer]ISTS[employer] MODEL 09/26/2012 Office visit Kaylynn Walker [employer]ISTS[employer] MODEL 09/06/2012 Office visit Kaylynn Mendez [employer]ISTS[employer] MODEL 09/06/2012 Office visit Odell Tierney MD 08/31/2012 Voided Kaylynn Mendez [employer]ISTS[employer] MODEL 07/28/2012 Office visit Kaylynn Mendez [employer]ISTS[employer] MODEL 07/27/2012 Office visit David Joyner DO 07/20/2012 [facility] David Joyner DO 07/13/2012 [facility] David Joyner DO 07/11/2012 Office visit Kaylynn Mendez [employer] 06/27/2012 Hospital Odell Tierney MD 06/21/2012 Office visit David Joyner DO 06/21/2012 Office visit Odell Tierney MD 06/20/2012 Office visit Brittni Yanez [employer]DEL 06/06/2012 Office visit Odell Tierney MD 05/03/2012 Office visit Kaylynn Mendez [employer]ISTS' MODEL 04/28/2012 Office visit Brittni Yanez ARTISTS' MODEL 04/11/2012 Office visit Kaylynn Mendez [employer]ISTS[employer] MODEL 04/06/2012 [facility] John Hoskins MD 03/30/2012 Office visit Kaylynn Mendez [employer]ISTS[employer] MODEL 03/15/2012 Office visit Kaylynn Mendez ARTISTS' MODEL 03/15/2012 Office visit Odell Tierney MD 02/09/2012 Office visit Kaylynn Mendez [employer]ISTS[employer] MODEL 12/23/2011 Office visit Kaylynn Mendez ARTISTS' MODEL 11/02/2011 Office visit Kaylynn Mendez ARTISTS' MODEL 10/14/2011 Office visit Kaylynn Mendez ARTISTS' MODEL 09/27/2011 Office visit Kaylynn Mendez ARTISTS' MODEL 08/19/2011 Hospital John Hoskins MD 08/18/2011 [facility] John Hoskins MD 08/18/2011 Office visit Kaylynn Andrea [employer] MODEL 08/02/2011 Office visit Kaylynn Andrea [employer]ISTS' MODEL 07/08/2011 Office visit Kaylynn Mendez [employer]ISTS' MODEL 07/05/2011 Office visit Odell Tierney MD 06/15/2011 Office visit Kaylynn Mendez [employer]ISTS[employer] MODEL 05/14/2011 Office visit Kaylynn Mendez [employer]ISTS' MODEL 05/11/2011 Office visit Odell Tierney MD 04/28/2011 Office visit Kaylynn Mendez [employer]DEL 03/02/2011 Office visit Chadd Norris DO 02/17/2011 [...]
--- OUTSIDE RECORDS SUMMARY | 2018-05-09 18:20 | XMS REPORT ---
Author Kaylynn Lyles Organization [facility] Address [address] [place], [place] [id number] Care Team Providers Care Clinical Education Assistant Name Role Phone Kaylynn Mendez PCP Unavailable Allergies and Adverse Reactions Name Reaction Notes Aspirin Methadone Ultram Vicodin Plan of Treatment Planned Activity Comments Planned Date Planned Time Plan/Goal CINE/VID X-RAY THROAT/ESOPH 05/08/2015 12:00 AM COMPREHEN METABOLIC PANEL 09/16/2015 12:00 AM ELECTROCARDIOGRAM COMPLETE 11/13/2015 12:00 AM CHEST X-RAY 2VW FRONTAL&LATL 11/24/2015 12:00 AM ELECTROCARDIOGRAM COMPLETE 10/31/2012 12:00 AM [...] route every 8 hours for 30 days metoprolol succinate 100 mg oral tablet extended release 24 hr 11/24/2015 TAKE 1 TABLET BY MOUTH EVERY DAY Levaquin 750 mg oral tablet 11/24/2015 12/01/2015 [...] 08/27/2014 use as directed for 99 days Bureau 5-325 mg oral tablet 06/17/2014 06/27/2014 take [...] a day as needed for 30 days [id number]-[id number]-KW 3.5-10,000-1 mg/mL-unit/mL-% otic drops,suspension 201401/08/2015 instill 4 [...] HC BMI BSA BMI Percentile O2 Sat(%) 11/24/2015 11:26:00 AM 124 mmHg 66 mmHg [...] Reviewed 04/28/2011 12:00 AM Decadron 1 mg NDC#[id number] (Jr) Reviewed 04/28/2011 12:00 AM Depo-Medrol 80 mg ND#[id number]-Fycqdlif Reviewed 09/02/2015 12:00 AM Toradol 60 Mg ND#7447-2809-79 Reviewed 09/02/2015 12:00 AM Phenergan, Up to 50 Mg RHC Medicaid Reviewed 09/16/2015 12:00 AM Toradol 60 Mg ND#1623-5715-65 Reviewed 09/16/2015 12:00 AM Phenergan Up to 50 mg RHC Medicare Reviewed 05/11/2011 12:00 AM N BLOCK INJ OCCIPITAL Reviewed 05/11/2011 12:00 AM Kenalog Mo-[address]-20 ANNA Reviewed 11/13/2015 12:00 AM ASSAY OF TROPONIN QUANT Returned 11/13/2015 12:00 AM ASSAY THYROID STIM HORMONE Returned 11/13/2015 12:00 AM COMPLETE CBC W/AUTO DIFF WBC Returned 11/13/2015 12:00 AM METABOLIC PANEL TOTAL CA Returned 11/13/2015 12:00 AM ASSAY OF MAGNESIUM Returned 11/24/2015 12:00 AM COMPLETE CBC W/AUTO DIFF WBC Returned 11/24/2015 12:00 AM COMPREHEN METABOLIC PANEL Returned 06/15/2011 12:00 AM COMPLETE CBC W/AUTO DIFF WBC Returned 06/15/2011 12:00 AM COMPREHEN METABOLIC PANEL Returned 07/08/2011 12:00 AM THER/PROPH/DIAG INJ SC/IM Reviewed 07/08/2011 12:00 AM Toradol,15mg [facility]#[id number] Reviewed 07/08/2011 12:00 AM Phenergan 50 Mg Im [facility] [id number] [facility] Reviewed 08/02/2011 12:00 AM THER/PROPH/DIAG INJ SC/IM Reviewed 08/02/2011 12:00 AM Decadron 1 mg ND#[id number] (Jr) Reviewed 08/02/2011 12:00 AM Depo-Medrol 80 mg [facility]#[id number]-Zmojaauh Reviewed 09/27/2011 12:00 AM THER/PROPH/DIAG INJ SC/IM Reviewed 09/27/2011 12:00 AM Depo-Medrol 80 mg [facility]#[id number]-Zzgbqvno Reviewed 10/14/2011 12:00 AM X-RAY EXAM OF ABDOMEN Returned 10/14/2011 12:00 AM URINALYSIS AUTO W/O SCOPE Reviewed 12/23/2011 12:00 AM THER/PROPH/DIAG INJ SC/IM Reviewed 12/23/2011 12:00 AM Decadron 1 mg NDC#[id number] (Jr) Reviewed 12/23/2011 12:00 AM Depo-Medrol 80 mg NDC#[id number]-Sdqkrmic Reviewed 02/09/2012 12:00 AM THER/PROPH/DIAG INJ SC/IM Reviewed 02/09/2012 12:00 AM Decadron 1 mg NDC#[id number] (Jr) Reviewed 02/09/2012 12:00 AM Depo-Medrol 80 mg NDC#[id number]-Aydsjrde Reviewed 03/15/2012 12:00 AM N BLOCK INJ OCCIPITAL Reviewed 03/15/2012 12:00 AM Kenalog Qy-[address]-20 ANNA Reviewed 04/11/2012 12:00 AM COMPLETE CBC W/AUTO DIFF WBC Returned 04/11/2012 12:00 AM COMPREHEN METABOLIC PANEL Returned 04/11/2012 12:00 AM LIPID PANEL Returned 04/11/2012 12:00 AM ASSAY THYROID STIM HORMONE Returned 06/20/2012 12:00 AM THER/PROPH/DIAG INJ SC/IM Reviewed 06/20/2012 12:00 AM Decadron, Per 1 Mg NDC# [address]-87 Reviewed 06/20/2012 12:00 AM Depo-Medrol, Per 80 Mg NDC#4856-7232-15 Reviewed 09/06/2012 12:00 AM N BLOCK INJ OCCIPITAL Reviewed 09/06/2012 12:00 AM Kenalog Hf-[address]-20 ANNA Reviewed 09/06/2012 12:00 AM X-RAY EXAM RIBS UNI 2 VIEWS Returned 09/26/2012 12:00 AM THER/PROPH/DIAG INJ SC/IM Reviewed 09/26/2012 12:00 AM Decadron, Per 1 Mg NDC# [address]-14 Reviewed 09/26/2012 12:00 AM Depo-Medrol, Per 80 Mg NDC#6173-2593-75 Reviewed 10/03/2012 12:00 AM URINALYSIS AUTO W/O SCOPE Reviewed 10/03/2012 12:00 AM THER/PROPH/DIAG INJ SC/IM Reviewed 10/03/2012 12:00 AM Toradol 60 Mg [facility]#2326-0501-73 Reviewed 10/03/2012 12:00 AM Phenergan, 25Mg ND#2665-7065-99 Reviewed 10/19/2012 12:00 AM N BLOCK INJ OCCIPITAL Reviewed 10/19/2012 12:00 AM Kenalog, Per 10 Mg [facility]#3917-8331-10 Reviewed 10/19/2012 12:00 AM Toradol 30 Mg ND#4551-1467-94 Reviewed 10/19/2012 12:00 AM THER/PROPH/DIAG INJ SC/IM Reviewed 10/31/2012 12:00 AM COMPLETE CBC W/AUTO DIFF WBC Returned 10/31/2012 12:00 AM COMPREHEN METABOLIC PANEL Returned 10/31/2012 12:00 AM LIPID PANEL Returned 11/03/2012 12:[address] THORAX W/O & W/DYE Returned 11/08/2012 12:00 AM N BLOCK INJ OCCIPITAL Reviewed 11/08/2012 12:[address]-[address]-20 ANNA Reviewed 11/27/2012 12:00 AM COMPLETE CBC [...] 01/25/2013 12:00 AM Decadron, Per 1 Mg [facility]# [address]-53 Reviewed 01/25/2013 12:00 AM Depo-Medrol, Per 80 Mg [facility]#3239-1195-39 Reviewed 01/26/2013 12:00 AM IMMUNOTHERAPY INJECTIONS Returned [...] 05/16/2013 12:00 AM Decadron, Per 1 Mg [facility]# [address]-29 Reviewed 05/16/2013 12:00 AM Depo-Medrol, Per 80 Mg [facility]#8094-9973-67 Reviewed 05/31/2013 12:00 AM IMMUNOTHERAPY INJECTIONS Reviewed 06/08/2013 12:00 AM IMMUNOTHERAPY INJECTIONS Reviewed 06/14/2013 12:00 AM IMMUNOTHERAPY INJECTIONS Reviewed 06/28/2013 12:00 AM IMMUNOTHERAPY INJECTIONS Reviewed 07/12/2013 12:00 AM X-RAY EXAM RIBS UNI 2 VIEWS Returned 07/18/2013 12:00 AM Toradol 60 Mg [facility]#9865-1585-08 Reviewed 07/18/2013 12:00 AM THER/PROPH/DIAG INJ SC/IM Reviewed 08/23/2013 12:00 AM COMPLETE CBC W/AUTO DIFF WBC Reviewed 08/23/2013 12:00 AM COMPREHEN METABOLIC PANEL Reviewed 08/23/2013 12:00 AM LIPID PANEL Reviewed 08/31/2013 12:00 AM X-RAY EXAM OF LOWER LEG Returned 09/04/2013 12:00 AM IMMUNOTHERAPY INJECTIONS Reviewed 09/14/2013 12:00 AM THER/PROPH/DIAG INJ SC/IM Reviewed 09/14/2013 12:00 AM Decadron, Per 1 Mg [facility]# [address]-45 Reviewed 09/14/2013 12:00 AM Depo-Medrol, Per 80 Mg [facility]#6742-7183-30 Reviewed 09/20/2013 12:00 AM IMMUNOTHERAPY INJECTIONS Reviewed [...] INJ OCCIPITAL Reviewed 12/10/2009 12:00 AM Kenalog Ek-[address]-20 ANNA Reviewed 12/16/2009 12:00 AM HIV-1ANTIBODY Reviewed 12/16/2009 12:00 AM COMPLETE CBC W/AUTO DIFF WBC Reviewed 12/16/2009 12:00 AM METABOLIC PANEL TOTAL CA Reviewed 12/16/2009 12:00 AM Type and screen Reviewed 12/16/2009 12:00 AM PROTHROMBIN TIME Reviewed 12/16/2009 12:00 AM THROMBOPLASTIN TIME PARTIAL Reviewed 03/18/2010 12:00 AM DRAIN/INJ JOINT/BURSA W/O US Reviewed 03/18/2010 12:00 AM Kenalog Sy-[address]-20 ANNA Reviewed 11/21/2013 12:00 AM RADEX HAND MINIMUM 3 VIEWS Returned 06/03/2010 12:00 AM INJ TRIGGER POINT 1/2 MUSCL Reviewed 06/03/2010 12:00 AM Kenalog per 10Mg -[facility]#[address]-91(Niall) Reviewed 12/05/2013 12:00 AM COMPLETE CBC W/AUTO [...] Reviewed 07/23/2010 12:00 AM Kenalog per 10Mg Im-[facility]#[address]-22(Niall) Reviewed 2014 12:00 AM COMPLETE CBC W/AUTO [...] INJ OCCIPITAL Reviewed 10/01/2010 12:00 AM Kenalog Pq-[address]-20 ANNA Reviewed 07/25/2014 12:00 AM THER/PROPH/DIAG INJ [...] 0.60 mg/dLCALCIUM 10.90 mg/ dLeGFR >60 mL/min/1.73 [id number] 45.0 U/L 08/31/2013 10:54 AM GLUCOSE 255.0 [...] 0.40 mg/ dLCALCIUM 10.60 mg/dLeGFR >60 mL/min/1.73 [id number] 369.0 mg/ dLCHOLESTEROL 153.0 mg/dLHDL 26.0 mg/dLLDL [...] BILI 0.30 mg/dLCALCIUM 10.0 mg/dLeGFR >60 mL/min/1.73 [id number] YELLOW APPEARANCE CLEAR SPEC GRAV 1.010 pH 5.5 PROTEIN NEGATIVE GLUCOSE NEGATIVE KETONE NEGATIVE BILIRUBIN NEGATIVE BLOOD NEGATIVE NITRITE NEGATIVE LEUK SCREEN NEGATIVE HGB A1C 6.30 %Est Avg Glucose 134.1 mg/dLMICROALBUMIN UR <0.5 MG/DL 02/13/2015 4:38 PM RMSF, IgG, EIA Negative [facility] Spotted Fever,IgM 0.51 E. chaffeensis [...] 141 Influenza 04/24/2014 sanofi pasteur PMC Fluzone [id number] Intramuscular Left Upper Arm 02/27/2014 01/15/2014 141 Influenza 02/13/2015 sanofi pasteur PMC Fluzone [id number] Intramuscular Left Deltoid 02/13/2015 01/03/2015 140 Tdap [...] upper respiratory infection Nov 24 2015 11:28AM Payers Insurance Name Company Name Plan Name Plan Number Policy Number Policy Group Number Start Date Medicare Part A Medicare [employer] [id number] N/A [facility] - RHC - [place] [facility]HC Comm [id number] N/A Medicare Part A Medicare - Lab/Xray [id number] N/A Medicare Part B Medicare [place] [id number] Monday, February 28, 2000 [place] [employer] [place] [employer] [id number] Tuesday, November 10, 2009 Medicare Part A Medicare Part A [id number] N/A [place] [employer] - [place] [employer] - [place] [id number] May [facility] Community Plan of [facility] Comm Plan of [id number] Wednesday, May 30, 2012 History of Encounters Visit Date Visit Type Provider 11/24/2015 Office visit Kaylynn Mendez RN INTERNSHIP 11/18/2015 Office visit Heena Dumont MD 11/03/2015 Office visit Sundeep Russell RN INTERNSHIP 10/20/2015 Office visit Kaylynn Mendez RN INTERNSHIP 09/23/2015 Office visit Kaylynn Mendez RN INTERNSHIP 09/16/[address] Pepe Figueroa MD 09/02/2015 Office visit Kaylynn Mendez RN INTERNSHIP 09/01/2015 Office visit Kaylynn Mendez RN INTERNSHIP 07/30/2015 Office visit Heena Dumont MD 07/15/2015 Office visit Kaylynn Mendez RN INTERNSHIP 07/04/2015 Office visit Heena Dumont MD 06/06/2015 Office visit Heena Dumont MD 06/06/2015 Office visit Kaylynn Mendez RN INTERNSHIP 06/02/2015 Office visit Kaylynn Mendez RN INTERNSHIP 05/26/2015 Office visit Kaylynn Mendez RN INTERNSHIP 05/20/2015 Office visit Kaylynn Mendez RN INTERNSHIP 05/08/2015 Office visit Heena Dumont MD 05/06/2015 Office visit Kaylynn Mendez RN INTERNSHIP 04/29/2015 Office visit Kaylynn Mendez RN INTERNSHIP 03/27/2015 Voided Brittni Yanez RN INTERNSHIP 03/21/2015 Office visit Heena Dumont MD 03/12/2015 Office visit Kaylynn Mendez RN INTERNSHIP 02/26/2015 Office visit Brittni Yanez RN INTERNSHIP 02/13/2015 Office visit Heena Dumont MD 01/15/2015 Office visit Brittni Yanez RN INTERNSHIP 01/13/2015 Office visit Heena Dumont MD 01/08/[address] Carol Fowler MD 01/01/2015 Office visit Brittni Yanez RN INTERNSHIP 12/13/2014 Office visit Heena Dumont MD 11/27/2014 Office visit Kaylynn Mendez RN INTERNSHIP 11/14/2014 Office visit Heena Dumont MD 10/18/2014 Office visit Heena Dumont MD 10/17/2014 [facility] Eliseo Hoskins MD 10/09/2014 Office visit Heena Dumont MD 09/25/2014 Office visit Heena Dumont MD 09/17/2014 Office visit Kaylynn Mendez RN INTERNSHIP 09/04/2014 Office visit Heena Dumont MD 08/28/2014 Office visit Kaylynn Mendez RN INTERNSHIP 08/23/2014 [facility] Eliseo Hoskins MD 08/01/2014 Office visit Kaylynn Mendez RN INTERNSHIP 07/29/2014 Office visit Heena Dumont MD 07/25/2014 Nurse visit Heena Dumont MD 07/17/2014 Office visit Kaylynn Mendez RN INTERNSHIP 07/11/2014 Office visit Heena Dumont MD 07/01/2014 Office visit Heena Dumont MD 06/25/2014 Office visit Kaylynn Mendez RN INTERNSHIP 06/12/2014 Office visit Kaylynn Mendez RN INTERNSHIP 06/06/2014 Office visit Kaylynn Mendez RN INTERNSHIP 05/27/2014 Office visit Heena Dumont MD 04/20/2014 Office visit Yesica Falcon RN INTERNSHIP 03/29/2014 Office visit Na Jones RN INTERNSHIP 03/15/2014 Office visit Heena Dumont MD 2014 Office visit Heena Dumont MD 2014 [facility] Eliseo Hoskins MD 02/27/2014 Nurse visit Heena Dumont MD 02/13/2014 Office visit Lena El RN INTERNSHIP 02/07/2014 Office visit Heena Dumont MD 02/03/2014 Office visit Na Jones RN INTERNSHIP 01/30/2014 Office visit Kaylynn Mendez RN INTERNSHIP 01/24/2014 Office visit Sundeep Russell RN INTERNSHIP 01/16/2014 Office visit Kaylynn Mendez RN INTERNSHIP 01/10/2014 Nurse visit Kaylynn Mendez RN INTERNSHIP 01/08/2014 Office visit Kaylynn Mendez RN INTERNSHIP 12/05/2013 Office visit Kaylynn Mendez RN INTERNSHIP 11/21/2013 Office visit Kaylynn Mendez RN INTERNSHIP 10/23/2013 Office visit Brittni Yanez RN INTERNSHIP 10/17/2013 Nurse visit Heena Dumont MD 10/12/2013 Office visit Kaylynn Mendez RN INTERNSHIP 10/02/2013 Office visit Heena Dumont MD 09/20/2013 Nurse visit Kaylynn Walker RN INTERNSHIP 09/20/2013 Voided Heena Dumont MD 09/14/2013 Office visit Kaylynn Walker RN INTERNSHIP 09/05/2013 Office visit Sundeep Russell RN INTERNSHIP 09/04/2013 Nurse visit Kaylynn Walker RN INTERNSHIP 08/31/2013 Office visit Kaylynn Walker RN INTERNSHIP 08/23/2013 Office visit Heena Dumont MD 08/10/2013 Office visit Kaylynn Walker RN INTERNSHIP 07/25/2013 Office visit Kaylynn Walker RN INTERNSHIP 07/18/2013 Office visit Kaylynn Walker RN INTERNSHIP 07/12/2013 Office visit Kaylynn Walker RN INTERNSHIP 06/28/2013 Nurse visit Kaylynn Walker RN INTERNSHIP 06/14/2013 Nurse visit Kaylynn Walker RN INTERNSHIP 06/08/2013 Nurse visit Kaylynn Walker RN INTERNSHIP 05/31/2013 Nurse visit Chadd Norris DO 05/18/2013 Office visit Terese Davidson MD 05/16/2013 Office visit Kaylynn Walker RN INTERNSHIP 05/09/2013 Office visit Kaylynn Walker RN INTERNSHIP 04/29/2013 [facility] Eliseo Hoskins MD 04/25/2013 Nurse visit Kaylynn Walker RN INTERNSHIP 04/17/2013 Office visit Kaylynn Walker RN INTERNSHIP 04/03/2013 Nurse visit Kaylynn Walker RN INTERNSHIP 04/03/2013 Office visit Terese Davidson MD 03/28/2013 Office visit Sundeep Russell RN INTERNSHIP 03/21/2013 Office visit Kaylynn Mendez RN INTERNSHIP 03/20/2013 Office visit Terese Davidson MD 03/14/2013 Nurse visit Kaylynn Walker RN INTERNSHIP 03/05/2013 Nurse visit Kaylynn Mendez RN INTERNSHIP 02/19/2013 Office visit Terese Davidson MD 02/16/2013 Nurse visit Kaylynn Walker RN INTERNSHIP 02/09/2013 Office visit Sundeep Russell RN INTERNSHIP 02/08/2013 Nurse visit Kaylynn Walker RN INTERNSHIP 02/01/2013 Nurse visit Kaylynn Walker RN INTERNSHIP 01/26/2013 Nurse visit Sabrina Mendez SALES ORDER COORDINATOR 01/25/2013 Office visit Kaylynn Walker RN INTERNSHIP 01/22/2013 Office visit Yoan Castaneda MD 01/18/2013 Nurse visit Kaylynn Walker RN INTERNSHIP 01/11/2013 Nurse visit Kaylynn Walker RN INTERNSHIP 01/05/2013 Nurse visit Kaylynn Walker RN INTERNSHIP 12/29/2012 Office visit Kaylynn Walker RN INTERNSHIP 11/27/2012 Office visit Kaylynn Mendez RN INTERNSHIP 11/08/2012 Office visit Odell Tierney MD 11/08/2012 Voided Odell Tierney MD 11/07/2012 Office visit Kaylynn Mendez RN INTERNSHIP 10/31/2012 Hospital John Hoskins MD 10/31/2012 Office visit Kaylynn Walker RN INTERNSHIP 10/19/2012 Office visit Genoveva Ayala RN INTERNSHIP 10/10/2012 Office visit Kaylynn Walker RN INTERNSHIP 10/03/2012 Office visit Kaylynn Walker RN INTERNSHIP 09/26/2012 Office visit Kaylynn Walker RN INTERNSHIP 09/06/2012 Office visit Kaylynn Andrea RN INTERNSHIP 09/06/2012 Office visit Odell Tierney MD 08/31/2012 Voided Kaylynn Mendez RN INTERNSHIP 07/28/2012 Office visit Kaylynn Walker RN INTERNSHIP 07/27/2012 Office visit David Joyner DO 07/20/2012 [facility] David Bouman DO 07/13/2012 Hospital David Bouman DO 07/11/2012 Office visit Kaylynn Andrea RN INTERNSHIP 06/27/2012 [facility] Odell Tierney MD 06/21/2012 Office visit David Joyner DO 06/21/2012 Office visit Odell Tierney MD 06/20/2012 Office visit Brittni Yanez RN INTERNSHIP 06/06/2012 Office visit Odell Tierney MD 05/03/2012 Office visit Kaylynn Mendez RN INTERNSHIP 04/28/2012 Office visit Brittni Yanez RN INTERNSHIP 04/11/2012 Office visit Kaylynn Mendez RN INTERNSHIP 04/06/2012 Hospital John Hoskins MD 03/30/2012 Office visit Kaylynn Walker RN INTERNSHIP 03/15/2012 Office visit Kaylynn Mendez RN INTERNSHIP 03/15/2012 Office visit Odell Tierney MD 02/09/2012 Office visit Kaylynn Mendez RN INTERNSHIP 12/23/2011 Office visit Kaylynn Mendez RN INTERNSHIP 11/02/2011 Office visit Kaylynn Walker RN INTERNSHIP 10/14/2011 Office visit Kaylynn Walker RN INTERNSHIP 09/27/2011 Office visit Kaylynn Walker RN INTERNSHIP 08/19/2011 Hospital John Hoskins MD 08/18/2011 Hospital John Hoskins MD 08/18/2011 Office visit Kaylynn Walker RN INTERNSHIP 08/02/2011 Office visit Kaylynn Walker RN INTERNSHIP 07/08/2011 Office visit Kaylynn Walker RN INTERNSHIP 07/05/2011 Office visit Odell Tierney MD 06/15/2011 Office visit Kaylynn Menedz RN INTERNSHIP 05/14/2011 Office visit Kaylynn Mendez RN INTERNSHIP 05/11/2011 Office visit Odell Tierney MD 04/28/2011 Office visit Kaylynn Walker RN INTERNSHIP 03/02/2011 Office visit Chadd Norris DO 02/17/2011 [...]
--- OUTSIDE RECORDS SUMMARY | 2018-05-09 18:25 | XMS REPORT ---
Author Sundeep Carlson [facility] Address [address] [place], [place] [id number] Care Team Providers Care Painter Sign Maintenance Name Role Phone Sundeep Russell PCP Allergies and Adverse Reactions Name Reaction Notes Aspirin Methadone Ultram Vicodin Plan of Treatment Planned Activity Comments Planned Date Planned Time Plan/Goal CINE/VID X-RAY THROAT/ESOPH 05/08/2015 12:00 AM COMPREHEN METABOLIC PANEL 09/16/2015 12:00 AM ELECTROCARDIOGRAM COMPLETE 11/13/2015 12:00 AM ASSAY OF TROPONIN QUANT 11/13/2015 12:00 AM ASSAY THYROID STIM HORMONE 11/13/2015 12:00 AM METABOLIC PANEL TOTAL CA [...] 08/27/2014 use as directed for 99 days Elgin 5-325 mg oral tablet 06/17/2014 06/27/2014 take [...] a day as needed for 30 days obufyueo-[id number]-ZV 3.5-10,000-1 mg/mL-unit/mL-% otic drops,suspension 201401/08/2015 instill 4 [...] Reviewed 04/28/2011 12:00 AM Decadron 1 mg NDC#[id number] (Jr) Reviewed 04/28/2011 12:00 AM Depo-Medrol 80 mg NDC#[id number]-Zblejemo Reviewed 09/02/2015 12:00 AM Toradol 60 Mg NDC#9918-1281-55 Reviewed 09/02/2015 12:00 AM Phenergan, Up to 50 Mg RHC Medicaid Reviewed 09/16/2015 12:00 AM Toradol 60 Mg NDC#3021-0378-61 Reviewed 09/16/2015 12:00 AM Phenergan Up to 50 mg C Medicare Reviewed 05/11/2011 12:00 AM N BLOCK INJ OCCIPITAL Reviewed 05/11/2011 12:00 AM Kenalog Fa-[address]-20 ANNA Reviewed 11/13/2015 12:00 AM COMPLETE CBC W/AUTO DIFF WBC Returned 06/15/2011 12:00 AM COMPLETE CBC W/AUTO DIFF WBC Returned 06/15/2011 12:00 AM COMPREHEN METABOLIC PANEL Returned 07/08/2011 12:00 AM THER/PROPH/DIAG INJ SC/IM Reviewed 07/08/2011 12:00 AM Toradol,15mg ND#[id number], [place] Reviewed 07/08/2011 12:00 AM Phenergan 50 Mg Im [facility] 8963-3871-44 ALLIE [place] Reviewed 08/02/2011 12:00 AM THER/PROPH/DIAG INJ SC/IM Reviewed 08/02/2011 12:00 AM Decadron 1 mg ND#[id number] (Jr) Reviewed 08/02/2011 12:00 AM Depo-Medrol 80 mg NDC#[id number]-Mdrzdqnf Reviewed 09/27/2011 12:00 AM THER/PROPH/DIAG INJ SC/IM Reviewed 09/27/2011 12:00 AM Depo-Medrol 80 mg NDC#[id number]-Ufqeooip Reviewed 10/14/2011 12:00 AM X-RAY EXAM OF ABDOMEN Returned 10/14/2011 12:00 AM URINALYSIS AUTO W/O SCOPE Reviewed 12/23/2011 12:00 AM THER/PROPH/DIAG INJ SC/IM Reviewed 12/23/2011 12:00 AM Decadron 1 mg NDC#[id number] (Jr) Reviewed 12/23/2011 12:00 AM Depo-Medrol 80 mg NDC#[id number]-Vgdwcmen Reviewed 02/09/2012 12:00 AM THER/PROPH/DIAG INJ SC/IM Reviewed 02/09/2012 12:00 AM Decadron 1 mg NDC#[id number] (Jr) Reviewed 02/09/2012 12:00 AM Depo-Medrol 80 mg NDC#[id number]-Nnqyxfyo Reviewed 03/15/2012 12:00 AM N BLOCK INJ OCCIPITAL Reviewed 03/15/2012 12:00 AM Kenalog Bh-[address]-20 ANNA Reviewed 04/11/2012 12:00 AM COMPLETE CBC W/AUTO DIFF WBC Returned 04/11/2012 12:00 AM COMPREHEN METABOLIC PANEL Returned 04/11/2012 12:00 AM LIPID PANEL Returned 04/11/2012 12:00 AM ASSAY THYROID STIM HORMONE Returned 06/20/2012 12:00 AM THER/PROPH/DIAG INJ SC/IM Reviewed 06/20/2012 12:00 AM Decadron, Per 1 Mg ND# [address]-33 Reviewed 06/20/2012 12:00 AM Depo-Medrol, Per 80 Mg ND#1314-3844-30 Reviewed 09/06/2012 12:00 AM N BLOCK INJ OCCIPITAL Reviewed 09/06/2012 12:00 AM Kenalog Cj-[address]-20 ANNA Reviewed 09/06/2012 12:00 AM X-RAY EXAM RIBS UNI 2 VIEWS Returned 09/26/2012 12:00 AM THER/PROPH/DIAG INJ SC/IM Reviewed 09/26/2012 12:00 AM Decadron, Per 1 Mg ND# [address]-24 Reviewed 09/26/2012 12:00 AM Depo-Medrol, Per 80 Mg ND#1708-8197-17 Reviewed 10/03/2012 12:00 AM URINALYSIS AUTO W/O SCOPE Reviewed 10/03/2012 12:00 AM THER/PROPH/DIAG INJ SC/IM Reviewed 10/03/2012 12:00 AM Toradol 60 Mg ND#2231-5849-82 Reviewed 10/03/2012 12:00 AM Phenergan, 25Mg NDC#9430-6986-66 Reviewed 10/19/2012 12:00 AM N BLOCK INJ OCCIPITAL Reviewed 10/19/2012 12:00 AM Kenalog, Per 10 Mg ND#0748-7554-06 Reviewed 10/19/2012 12:00 AM Toradol 30 Mg NDC#2991-7232-54 Reviewed 10/19/2012 12:00 AM THER/PROPH/DIAG INJ SC/IM Reviewed 10/31/2012 12:00 AM COMPLETE CBC W/AUTO DIFF WBC Returned 10/31/2012 12:00 AM COMPREHEN METABOLIC PANEL Returned 10/31/2012 12:00 AM LIPID PANEL Returned 11/03/2012 12:[address] THORAX W/O & W/DYE Returned 11/08/2012 12:00 AM N BLOCK INJ OCCIPITAL Reviewed 11/08/2012 12:00 AM Kenalog Bx-[address]-20 ANNA Reviewed 11/27/2012 12:00 AM COMPLETE CBC [...] 12:00 AM Decadron, Per 1 Mg [facility]# [address]-88 Reviewed 01/25/2013 12:00 AM Depo-Medrol, Per 80 Mg [facility]#5089-9388-90 Reviewed 01/26/2013 12:00 AM IMMUNOTHERAPY INJECTIONS Returned [...] 12:00 AM Decadron, Per 1 Mg [facility]# [address]-81 Reviewed 05/16/2013 12:00 AM Depo-Medrol, Per 80 Mg [facility]#2624-0437-26 Reviewed 05/31/2013 12:00 AM IMMUNOTHERAPY INJECTIONS Reviewed 06/08/2013 12:00 AM IMMUNOTHERAPY INJECTIONS Reviewed 06/14/2013 12:00 AM IMMUNOTHERAPY INJECTIONS Reviewed 06/28/2013 12:00 AM IMMUNOTHERAPY INJECTIONS Reviewed 07/12/2013 12:00 AM X-RAY EXAM RIBS UNI 2 VIEWS Returned 07/18/2013 12:00 AM Toradol 60 Mg [facility]#3533-4930-37 Reviewed 07/18/2013 12:00 AM THER/PROPH/DIAG INJ SC/IM Reviewed 08/23/2013 12:00 AM COMPLETE CBC W/AUTO DIFF WBC Reviewed 08/23/2013 12:00 AM COMPREHEN METABOLIC PANEL Reviewed 08/23/2013 12:00 AM LIPID PANEL Reviewed 08/31/2013 12:00 AM X-RAY EXAM OF LOWER LEG Returned 09/04/2013 12:00 AM IMMUNOTHERAPY INJECTIONS Reviewed 09/14/2013 12:00 AM THER/PROPH/DIAG INJ SC/IM Reviewed 09/14/2013 12:00 AM Decadron, Per 1 Mg [facility]# [address]-65 Reviewed 09/14/2013 12:00 AM Depo-Medrol, Per 80 Mg [facility]#2308-5872-12 Reviewed 09/20/2013 12:00 AM IMMUNOTHERAPY INJECTIONS Reviewed [...] INJ OCCIPITAL Reviewed 12/10/2009 12:00 AM Kenalog We-[address]-20 ANNA Reviewed 12/16/2009 12:00 AM HIV-1ANTIBODY Reviewed 12/16/2009 12:00 AM COMPLETE CBC W/AUTO DIFF WBC Reviewed 12/16/2009 12:00 AM METABOLIC PANEL TOTAL CA Reviewed 12/16/2009 12:00 AM Type and screen Reviewed 12/16/2009 12:00 AM PROTHROMBIN TIME Reviewed 12/16/2009 12:00 AM THROMBOPLASTIN TIME PARTIAL Reviewed 03/18/2010 12:00 AM DRAIN/INJ JOINT/BURSA W/O US Reviewed 03/18/2010 12:00 AM Kenalog Cu-[address]-20 ANNA Reviewed 11/21/2013 12:00 AM RADEX HAND MINIMUM 3 VIEWS Returned 06/03/2010 12:00 AM INJ TRIGGER POINT 1/2 MUSCL Reviewed 06/03/2010 12:00 AM Kenalog per 10Mg -[facility]#[address]-54(Niall) Reviewed 12/05/2013 12:00 AM COMPLETE CBC W/AUTO [...] Reviewed 07/23/2010 12:00 AM Kenalog per 10Mg Im-[facility]#[address]-15(Niall) Reviewed 2014 12:00 AM COMPLETE CBC W/AUTO [...] INJ OCCIPITAL Reviewed 10/01/2010 12:00 AM Kenalog Va-[address]-20 ANNA Reviewed 07/25/2014 12:00 AM THER/PROPH/DIAG INJ [...] 0.60 mg/dLCALCIUM 10.90 mg/ dLeGFR >60 mL/min/1.73 [id number] 45.0 U/L 08/31/2013 10:54 AM GLUCOSE 255.0 [...] 0.40 mg/ dLCALCIUM 10.60 mg/dLeGFR >60 mL/min/1.73 [id number] 369.0 mg/ dLCHOLESTEROL 153.0 mg/dLHDL 26.0 mg/dLLDL [...] BILI 0.30 mg/dLCALCIUM 10.0 mg/dLeGFR >60 mL/min/1.73 u9GPLIF YELLOW APPEARANCE CLEAR SPEC GRAV 1.010 pH 5.5 PROTEIN NEGATIVE GLUCOSE NEGATIVE KETONE NEGATIVE BILIRUBIN NEGATIVE BLOOD NEGATIVE NITRITE NEGATIVE LEUK SCREEN NEGATIVE HGB A1C 6.30 %Est Avg Glucose 134.1 mg/dLMICROALBUMIN UR <0.5 MG/DL 02/13/2015 4:38 PM RMSF, IgG, EIA Negative [facility] Spotted Fever,IgM 0.51 E. chaffeensis (HME) IgGTiter [...] 141 Influenza 04/24/2014 sanofi pasteur PMC Fluzone [id number] Intramuscular Left Upper Arm 02/27/2014 01/15/2014 141 Influenza 02/13/2015 sanofi pasteur PMC Fluzone [id number] Intramuscular Left Deltoid 02/13/2015 01/03/2015 140 Tdap [...] Muscle Spasm Jun 6 2011 1:58PM Headache Jul 08 2011 1:38PM Heart Sound Abnormality b 9 [...] Start Date Medicare Part A Medicare C [id number] N/A [facility] Comm [id number] N/A Medicare Part A Medicare - Lab/Xray [id number] N/A Medicare Part B Medicare Of [place] [id number] Monday, February 28, 2000 [place] [facility] [employer] [facility] [place] [facility] [place] [facility] [id number] Tuesday, November 10, 2009 Medicare Part A Medicare Part A [id number] N/A [place] [facility] [id number] [facility] Comm Plan of [id number] Wednesday, May 30, 2012 History of Encounters Visit Date Visit Type Provider 11/03/2015 Office visit Sundeep Russell CDL B DRIVER 10/20/2015 Office visit Kaylynn Walker CDL B DRIVER 09/23/2015 Office visit Kaylynn Walker CDL B DRIVER 09/16/[address] Pepe Figueroa MD 09/02/2015 Office visit Kaylynn Walker CDL B DRIVER 09/01/2015 Office visit Kaylynn Walker CDL B DRIVER 07/30/2015 Office visit Heena Dumont MD 07/15/2015 Office visit Kaylynn Walker CDL B DRIVER 07/04/2015 Office visit Heena Dumont MD 06/06/2015 Office visit Heena Dumont MD 06/06/2015 Office visit Kaylynn Walker CDL B DRIVER 06/02/2015 Office visit Kaylynn Walker CDL B DRIVER 05/26/2015 Office visit Kaylynn Walker CDL B DRIVER 05/20/2015 Office visit Kaylynn Walker CDL B DRIVER 05/08/2015 Office visit Heena Dumont MD 05/06/2015 Office visit Kaylynn Walker CDL B DRIVER 04/29/2015 Office visit Kaylynn Walker CDL B DRIVER 03/27/2015 Voided Brittni Yanez CDL B DRIVER 03/21/2015 Office visit Heena Dumont MD 03/12/2015 Office visit Kaylynn Mendez CDL B DRIVER 02/26/2015 Office visit Brittni Yanez CDL B DRIVER 02/13/2015 Office visit Heena Dumont MD 01/15/2015 Office visit Brittni Yanez CDL B DRIVER 01/13/2015 Office visit Heena Dmuont MD 01/08/[address] Carol Fowler MD 01/01/2015 Office visit Brittni Yanez CDL B DRIVER 12/13/2014 Office visit Heena Dumont MD 11/27/2014 Office visit Kaylynn Mendez CDL B DRIVER 11/14/2014 Office visit Heena Dumont MD 10/18/2014 Office visit Heena Dumont MD 10/17/2014 [facility] Hoskins MD 10/09/2014 Office visit Heena Dumont MD 09/25/2014 Office visit Heena Dumont MD 09/17/2014 Office visit Kaylynn Mendez CDL B DRIVER 09/04/2014 Office visit Heena Dumont MD 08/28/2014 Office visit Kaylynn Mendez CDL B DRIVER 08/23/2014 [facility] John Hoskins MD 08/01/2014 Office visit Kaylynn Mendez CDL B DRIVER 07/29/2014 Office visit Heena Dumont MD 07/25/2014 Nurse visit Heena Dumont MD 07/17/2014 Office visit Kaylynn Mendez CDL B DRIVER 07/11/2014 Office visit Heena Dumont MD 07/01/2014 Office visit Heena Dumont MD 06/25/2014 Office visit Kaylynn Walker CDL B DRIVER 06/12/2014 Office visit Kaylynn Walker CDL B DRIVER 06/06/2014 Office visit Kaylynn Andrea CDL B DRIVER 05/27/2014 Office visit Heena Dumont MD 04/20/2014 Office visit Yesica Falcon CDL B DRIVER 03/29/2014 Office visit Na Jones CDL B DRIVER 03/15/2014 Office visit Heena Dumont MD 2014 Office visit Heena Dumont MD 2014 [facility] John Hoskins MD 02/27/2014 Nurse visit Heena Dumont MD 02/13/2014 Office visit Lena El CDL B DRIVER 02/07/2014 Office visit Heena Dumont MD 02/03/2014 Office visit Na Jones CDL B DRIVER 01/30/2014 Office visit Kaylynn Mendez CDL B DRIVER 01/24/2014 Office visit Sundeep Russell CDL B DRIVER 01/16/2014 Office visit Kaylynn Walker CDL B DRIVER 01/10/2014 Nurse visit Kaylynn Walker CDL B DRIVER 01/08/2014 Office visit Kaylynn Walker CDL B DRIVER 12/05/2013 Office visit Kaylynn Walker CDL B DRIVER 11/21/2013 Office visit Kaylynn Mendez CDL B DRIVER 10/23/2013 Office visit Brittni Yanez CDL B DRIVER 10/17/2013 Nurse visit Heena Dumont MD 10/12/2013 Office visit Kaylynn Walker CDL B DRIVER 10/02/2013 Office visit Heena Dumont MD 09/20/2013 Nurse visit Kaylynn Walker CDL B DRIVER 09/20/2013 Voided Heena Dumont MD 09/14/2013 Office visit Kaylynn Walker CDL B DRIVER 09/05/2013 Office visit Sundeep Russell CDL B DRIVER 09/04/2013 Nurse visit Kaylynn Walker CDL B DRIVER 08/31/2013 Office visit Kaylynn Walker CDL B DRIVER 08/23/2013 Office visit Heena Dumont MD 08/10/2013 Office visit Kaylynn Walker CDL B DRIVER 07/25/2013 Office visit Kaylynn Walker CDL B DRIVER 07/18/2013 Office visit Kaylynn Walker CDL B DRIVER 07/12/2013 Office visit Kaylynn Walker CDL B DRIVER 06/28/2013 Nurse visit Kaylynn Walker CDL B DRIVER 06/14/2013 Nurse visit Kaylynn Walker CDL B DRIVER 06/08/2013 Nurse visit Kaylynn Walker CDL B DRIVER 05/31/2013 Nurse visit Chadd Norris DO 05/18/2013 Office visit Terese Davidson MD 05/16/2013 Office visit Kaylynn Walker CDL B DRIVER 05/09/2013 Office visit Kaylynn Walker CDL B DRIVER 04/29/2013 [facility] John Hoskins MD 04/25/2013 Nurse visit Kaylynn Walker CDL B DRIVER 04/17/2013 Office visit Kaylynn Walker CDL B DRIVER 04/03/2013 Nurse visit Kaylynn Walker CDL B DRIVER 04/03/2013 Office visit Terese Davidson MD 03/28/2013 Office visit Sundeep Russell CDL B DRIVER 03/21/2013 Office visit Kaylynn Walker CDL B DRIVER 03/20/2013 Office visit Terese Davidson MD 03/14/2013 Nurse visit Kaylynn Walker CDL B DRIVER 03/05/2013 Nurse visit Kaylynn Walker CDL B DRIVER 02/19/2013 Office visit Terese Davidson MD 02/16/2013 Nurse visit Kaylynn Walker CDL B DRIVER 02/09/2013 Office visit Sundeep Russell CDL B DRIVER 02/08/2013 Nurse visit Kaylynn Walker CDL B DRIVER 02/01/2013 Nurse visit Kaylynn Walker CDL B DRIVER 01/26/2013 Nurse visit Sabrina Andrea PRINT BUYER 01/25/2013 Office visit Kaylynn Andrea CDL B DRIVER 01/22/2013 Office visit Yoan Castaneda MD 01/18/2013 Nurse visit Kaylynn Walker CDL B DRIVER 01/11/2013 Nurse visit Kaylynn Walker CDL B DRIVER 01/05/2013 Nurse visit Kaylynn Walker CDL B DRIVER 12/29/2012 Office visit Kaylynn Walker CDL B DRIVER 11/27/2012 Office visit Kaylynn Mendez CDL B DRIVER 11/08/2012 Office visit Odell Tierney MD 11/08/2012 Voided Odell Tierney MD 11/07/2012 Office visit Kaylynn Mendez CDL B DRIVER 10/31/2012 [facility] John Hoskins MD 10/31/2012 Office visit Kaylynn Mendez CDL B DRIVER 10/19/2012 Office visit Genoveva Ayala CDL B DRIVER 10/10/2012 Office visit Kaylynn Mendez CDL B DRIVER 10/03/2012 Office visit Kaylynn Walker CDL B DRIVER 09/26/2012 Office visit Kaylynn Walker CDL B DRIVER 09/06/2012 Office visit Kaylynn Walker CDL B DRIVER 09/06/2012 Office visit Odell Tierney MD 08/31/2012 Voided Kaylynn Mendez CDL B DRIVER 07/28/2012 Office visit Kaylynn Mendez CDL B DRIVER 07/27/2012 Office visit David Joyner DO 07/20/2012 [facility] David Joyner DO 07/13/2012 [facility] David Joyner DO 07/11/2012 Office visit Kaylynn Mendez CDL B DRIVER 06/27/2012 [facility] Odell Tierney MD 06/21/2012 Office visit David Joyner DO 06/21/2012 Office visit Odell Tierney MD 06/20/2012 Office visit Brittni Yanez CDL B DRIVER 06/06/2012 Office visit Odell Tierney MD 05/03/2012 Office visit Kaylynn Andrea CDL B DRIVER 04/28/2012 Office visit Brittni Tomy Yanez CDL B DRIVER 04/11/2012 Office visit Kaylynn Mendez CDL B DRIVER 04/06/2012 [facility] MD 03/30/2012 Office visit Kaylynn Walker CDL B DRIVER 03/15/2012 Office visit Kaylynn Walker CDL B DRIVER 03/15/2012 Office visit Odell Tierney MD 02/09/2012 Office visit Kaylynn Walker CDL B DRIVER 12/23/2011 Office visit Kaylynn Walker CDL B DRIVER 11/02/2011 Office visit Kaylynn Walker CDL B DRIVER 10/14/2011 Office visit Kaylynn Walker CDL B DRIVER 09/27/2011 Office visit Kaylynn Walker CDL B DRIVER 08/19/2011 [facility] Hoskins MD 08/18/2011 [facility] John Hoskins MD 08/18/2011 Office visit Kaylynn Walker CDL B DRIVER 08/02/2011 Office visit Kaylynn Walker CDL B DRIVER 07/08/2011 Office visit Kaylynn Walker CDL B DRIVER 07/05/2011 Office visit Odell Tierney MD 06/15/2011 Office visit Kaylynn Walker CDL B DRIVER 05/14/2011 Office visit Kaylynn Andrea CDL B DRIVER 05/11/2011 Office visit Odell Tierney MD 04/28/2011 Office visit Kaylynn Mendez CDL B DRIVER 03/02/2011 Office visit Chadd Norris DO [...]
--- OUTSIDE RECORDS SUMMARY | 2018-05-09 18:30 | XMS REPORT ---
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 Aud[place] Tequila Lancets 33 gauge miscellaneous misc 01/21/2016 use as directed [place] miscellaneous strip 01/21/2016 07/19/2016 Test 2x daily, [...] 08/27/2014 use as directed for 99 days [place] 5-325 mg oral tablet 06/17/2014 06/27/2014 take [...] a day as needed for 30 days daubkrhd-cisrkdxow-KG 3.5-10,000-1 mg/mL-unit/mL-% otic drops,suspension 201401/08/2015 instill 4 [...] Reviewed 04/28/2011 12:00 AM Decadron 1 mg ND#[id number] (Jr) Reviewed 04/28/2011 12:00 AM Depo-Medrol 80 mg ND#[id number]-Jfwacdqt Reviewed 09/02/2015 12:00 AM Toradol 60 Mg [facility]#4194-1001-34 Reviewed 09/02/2015 12:00 AM Phenergan, Up to 50 Mg R[facility] Medicaid Reviewed 09/16/2015 12:00 AM Toradol 60 Mg [facility]#7090-7544-11 Reviewed 09/16/2015 12:00 AM Phenergan Up to 50 mg RHC Medicare Reviewed 05/11/2011 12:00 AM N BLOCK INJ OCCIPITAL Reviewed 05/11/2011 12:00 AM Kenalog Eb-[address]-20 ANNA Reviewed 11/13/2015 12:00 AM ASSAY OF [...] 07/08/2011 12:00 AM Toradol,15mg [facility]#[id number], [place]il[place] Reviewed 07/08/2011 12:00 AM Phenergan 50 Mg [facility] 8495-7993-10 ALLIE Rosalia Reviewed 01/21/2016 12:00 AM ECG MONIT/REPRT UP TO 48 HRS Returned 08/02/2011 12:00 AM THER/PROPH/DIAG INJ SC/IM Reviewed 08/02/2011 12:00 AM Decadron 1 mg [facility]#[id number] (Jr) Reviewed 08/02/2011 12:00 AM Depo-Medrol 80 mg [facility]#[id number]-Xvwyfrxy Reviewed 03/05/2016 12:00 AM COMPLETE CBC W/AUTO DIFF WBC Returned 03/05/2016 12:00 AM STREP A ASSAY W/OPTIC Returned 03/05/2016 12:00 AM C-REACTIVE PROTEIN Returned 03/18/2016 12:00 AM [facility] MEDICARE - flu vaccine administration Reviewed 03/18/2016 12:00 AM INFLUENZA VACCINE QUADRIVALENT 3 YRS PLUS IM Reviewed 09/27/2011 12:00 AM THER/PROPH/DIAG INJ SC/IM Reviewed 09/27/2011 12:00 AM Depo-Medrol 80 mg NDC#[id number]-Guyykkcq Reviewed 10/14/2011 12:00 AM X-RAY EXAM OF ABDOMEN Returned 10/14/2011 12:00 AM URINALYSIS AUTO W/O SCOPE Reviewed 12/23/2011 12:00 AM THER/PROPH/DIAG INJ SC/IM Reviewed 12/23/2011 12:00 AM Decadron 1 mg N[facility]#[id number] (Jr) Reviewed 12/23/2011 12:00 AM Depo-Medrol 80 mg NDC#[id number]-Ammzlpst Reviewed 02/09/2012 12:00 AM THER/PROPH/DIAG INJ SC/IM Reviewed 02/09/2012 12:00 AM Decadron 1 mg N[facility]#[id number] (Jr) Reviewed 02/09/2012 12:00 AM Depo-Medrol 80 mg NDC#[id number]-Qbblplwl Reviewed 03/15/2012 12:00 AM N BLOCK INJ OCCIPITAL Reviewed 03/15/2012 12:00 AM Kenalog Qm-[address]-20 ANNA Reviewed 04/11/2012 12:00 AM COMPLETE CBC W/AUTO DIFF WBC Returned 04/11/2012 12:00 AM COMPREHEN METABOLIC PANEL Returned 04/11/2012 12:00 AM LIPID PANEL Returned 04/11/2012 12:00 AM ASSAY THYROID STIM HORMONE Returned 06/20/2012 12:00 AM THER/PROPH/DIAG INJ SC/IM Reviewed 06/20/2012 12:00 AM Decadron, Per 1 Mg ND# [address]-90 Reviewed 06/20/2012 12:00 AM Depo-Medrol, Per 80 Mg NDC#0097-2570-88 Reviewed 09/06/2012 12:00 AM N BLOCK INJ OCCIPITAL Reviewed 09/06/2012 12:00 AM Kenalog Vt-[address]-20 ANNA Reviewed 09/06/2012 12:00 AM X-RAY EXAM RIBS UNI 2 VIEWS Returned 09/26/2012 12:00 AM THER/PROPH/DIAG INJ SC/IM Reviewed 09/26/2012 12:00 AM Decadron, Per 1 Mg [facility]# [address]-87 Reviewed 09/26/2012 12:00 AM Depo-Medrol, Per 80 Mg [facility]#5056-7785-27 Reviewed 10/03/2012 12:00 AM URINALYSIS AUTO W/O SCOPE Reviewed 10/03/2012 12:00 AM THER/PROPH/DIAG INJ SC/IM Reviewed 10/03/2012 12:00 AM Toradol 60 Mg [facility]#7011-3178-67 Reviewed 10/03/2012 12:00 AM Phenergan, 25Mg [facility]#9754-8583-35 Reviewed 10/19/2012 12:00 AM N BLOCK INJ OCCIPITAL Reviewed 10/19/2012 12:00 AM Kenalog, Per 10 Mg [facility]#4318-6390-53 Reviewed 10/19/2012 12:00 AM Toradol 30 Mg [facility]#9766-6684-52 Reviewed 10/19/2012 12:00 AM THER/PROPH/DIAG INJ SC/IM Reviewed 10/31/2012 12:00 AM COMPLETE CBC W/AUTO DIFF WBC Returned 10/31/2012 12:00 AM COMPREHEN METABOLIC PANEL Returned 10/31/2012 12:00 AM LIPID PANEL Returned 11/03/2012 12:[address] THORAX W/O & W/DYE Returned 11/08/2012 12:00 AM N BLOCK INJ OCCIPITAL Reviewed 11/08/2012 12:00 AM Kenalog Cb-[address]-20 ANNA Reviewed 11/27/2012 12:00 AM COMPLETE CBC [...] Decadron, Per 1 Mg [facility]# [address]-03 Reviewed 01/25/2013 12:00 AM Depo-Medrol, Per 80 Mg [facility]#0552-9703-70 Reviewed 01/26/2013 12:00 AM IMMUNOTHERAPY INJECTIONS Returned [...] Decadron, Per 1 Mg [facility]# [address]-22 Reviewed 05/16/2013 12:00 AM Depo-Medrol, Per 80 Mg [facility]#5094-9200-36 Reviewed 05/31/2013 12:00 AM IMMUNOTHERAPY INJECTIONS Reviewed 06/08/2013 12:00 AM IMMUNOTHERAPY INJECTIONS Reviewed 06/14/2013 12:00 AM IMMUNOTHERAPY INJECTIONS Reviewed 06/28/2013 12:00 AM IMMUNOTHERAPY INJECTIONS Reviewed 07/12/2013 12:00 AM X-RAY EXAM RIBS UNI 2 VIEWS Returned 07/18/2013 12:00 AM Toradol 60 Mg [facility]#2069-9476-35 Reviewed 07/18/2013 12:00 AM THER/PROPH/DIAG INJ SC/IM Reviewed 08/23/2013 12:00 AM COMPLETE CBC W/AUTO DIFF WBC Reviewed 08/23/2013 12:00 AM COMPREHEN METABOLIC PANEL Reviewed 08/23/2013 12:00 AM LIPID PANEL Reviewed 08/31/2013 12:00 AM X-RAY EXAM OF LOWER LEG Returned 09/04/2013 12:00 AM IMMUNOTHERAPY INJECTIONS Reviewed 09/14/2013 12:00 AM THER/PROPH/DIAG INJ SC/IM Reviewed 09/14/2013 12:00 AM Decadron, Per 1 Mg [facility]# [address]-30 Reviewed 09/14/2013 12:00 AM Depo-Medrol, Per 80 Mg [facility]#3496-4143-99 Reviewed 09/20/2013 12:00 AM IMMUNOTHERAPY INJECTIONS Reviewed [...] INJ OCCIPITAL Reviewed 12/10/2009 12:00 AM Kenalog Ts-[address]-20 ANNA Reviewed 12/16/2009 12:00 AM HIV-1ANTIBODY Reviewed 12/16/2009 12:00 AM COMPLETE CBC W/AUTO DIFF WBC Reviewed 12/16/2009 12:00 AM METABOLIC PANEL TOTAL CA Reviewed 12/16/2009 12:00 AM Type and screen Reviewed 12/16/2009 12:00 AM PROTHROMBIN TIME Reviewed 12/16/2009 12:00 AM THROMBOPLASTIN TIME PARTIAL Reviewed 03/18/2010 12:00 AM DRAIN/INJ JOINT/BURSA W/O US Reviewed 03/18/2010 12:00 AM Kenalog Qm-[address]-20 ANNA Reviewed 11/21/2013 12:00 AM RADEX HAND MINIMUM 3 VIEWS Returned 06/03/2010 12:00 AM INJ TRIGGER POINT 1/2 MUSCL Reviewed 06/03/2010 12:00 AM Kenalog per 10Mg [facility]#[address]-33(Niall) Reviewed 12/05/2013 12:00 AM COMPLETE CBC W/AUTO [...] Reviewed 07/23/2010 12:00 AM Kenalog per 10Mg Im-Ndc#[address]-62(Niall) Reviewed 2014 12:00 AM COMPLETE CBC W/AUTO [...] INJ OCCIPITAL Reviewed 10/01/2010 12:00 AM Kenalog He-[address]-20 ANNA Reviewed 07/25/2014 12:00 AM THER/PROPH/DIAG INJ [...] Quant,IgM <0.80 RMSF , IgG, EIA Negative [facility] Spotted Fever,IgM 0.51 E. chaffeensis [...] 141 Influenza 04/24/2014 sanofi pasteur PMC Fluzone [id number] Intramuscular Left Upper Arm 02/27/2014 01/15/2014 141 Influenza 02/13/2015 sanofi pasteur PMC Fluzone [id number] Intramuscular Left Deltoid 02/13/2015 01/03/2015 140 Tdap 06/06/2015 [employer] SKB BOOSTRIX [id number] Intramuscular Left Deltoid 06/06/2015 07/23/2014 115 Influenza 03/18/2016 sanofi pasteur PMC Fluzone [id number] Intramuscular Left Deltoid 03/17/2016 01/03/2015 141 History [...] Start Date Medicare Part A Medicare RHC [id number] N/A [facility] Comm [id number] N/A Medicare Part A Medicare - Lab/Xray [id number] N/A Medicare Part B Medicare Of [place] [id number] Monday, February 28, 2000 [place] [id number] Tuesday, November 10, 2009 Medicare Part A Medicare Part A [id number] N/A [place] Paper Plate [employer]ender Prog [facility] - [facility] [id number] May [facility] Comm Plan of [id number] Wednesday, May 30, 2012 History of Encounters Visit Date Visit Type Provider 04/14/2016 Office visit Heena Dumont MD 04/13/2016 Office visit Kaylynn Mendez MERCHANDISER RETAIL REPRESENTATIVE 04/02/2016 Office visit Lena El MERCHANDISER RETAIL REPRESENTATIVE 04/02/2016 Office visit Heena Dumont MD 03/26/2016 Office visit Yesica Falcon MERCHANDISER RETAIL REPRESENTATIVE 03/17/2016 Office visit Heena Dumont MD 03/05/2016 Office visit Kaylynn Mendez MERCHANDISER RETAIL REPRESENTATIVE 02/16/2016 Office visit Heena Dumont MD 02/14/2016 Office visit Na Jones MERCHANDISER RETAIL REPRESENTATIVE 01/16/2016 Office visit Heena Dumont MD 12/16/2015 Office visit Heena Dumont MD 11/24/2015 Office visit Kaylynn Mendez MERCHANDISER RETAIL REPRESENTATIVE 11/18/2015 Office visit Heena Dumont MD 11/03/2015 Office visit Sundeep Russell MERCHANDISER RETAIL REPRESENTATIVE 10/20/2015 Office visit Kaylynn Mendez MERCHANDISER RETAIL REPRESENTATIVE 09/23/2015 Office visit Kaylynn Mendez MERCHANDISER RETAIL REPRESENTATIVE 09/16/[address] Pepe Figueroa MD 09/02/2015 Office visit Kaylynn Mendez MERCHANDISER RETAIL REPRESENTATIVE 09/01/2015 Office visit Kaylynn Mendez MERCHANDISER RETAIL REPRESENTATIVE 07/30/2015 Office visit Heena Dumont MD 07/15/2015 Office visit Kaylynn Mendez MERCHANDISER RETAIL REPRESENTATIVE 07/04/2015 Office visit Heena Dumont MD 06/06/2015 Office visit Heena Dumont MD 06/06/2015 Office visit Kaylynn Mendez MERCHANDISER RETAIL REPRESENTATIVE 06/02/2015 Office visit Kaylynn Mendez MERCHANDISER RETAIL REPRESENTATIVE 05/26/2015 Office visit Kaylynn Mendez MERCHANDISER RETAIL REPRESENTATIVE 05/20/2015 Office visit Kaylynn Mendez MERCHANDISER RETAIL REPRESENTATIVE 05/08/2015 Office visit Heena Dumont MD 05/06/2015 Office visit Kaylynn Mendez MERCHANDISER RETAIL REPRESENTATIVE 04/29/2015 Office visit Kaylynn Mendez MERCHANDISER RETAIL REPRESENTATIVE 03/27/2015 Voided Brittni Yanez MERCHANDISER RETAIL REPRESENTATIVE 03/21/2015 Office visit Heena Dumont MD 03/12/2015 Office visit Kaylynn Mendez MERCHANDISER RETAIL REPRESENTATIVE 02/26/2015 Office visit Brittni Yanez MERCHANDISER RETAIL REPRESENTATIVE 02/13/2015 Office visit Heena Dumont MD 01/15/2015 Office visit Brittni Yanez MERCHANDISER RETAIL REPRESENTATIVE 01/13/2015 Office visit Heena Dumont MD 01/08/[address] Carol Fowler MD 01/01/2015 Office visit Brittni Yanez MERCHANDISER RETAIL REPRESENTATIVE 12/13/2014 Office visit Heena Dumont MD 11/27/2014 Office visit Kaylynn Mendez MERCHANDISER RETAIL REPRESENTATIVE 11/14/2014 Office visit Heena Dumont MD 10/18/2014 Office visit Heena Dumont MD 10/17/2014 [facility] John Hoskins MD 10/09/2014 Office visit Heena Dumont MD 09/25/2014 Office visit Heena Dumont MD 09/17/2014 Office visit Kaylynn Mendez MERCHANDISER RETAIL REPRESENTATIVE 09/04/2014 Office visit Heena Dumont MD 08/28/2014 Office visit Kaylynn Mendez MERCHANDISER RETAIL REPRESENTATIVE 08/23/2014 [facility] John Hoskins MD 08/01/2014 Office visit Kaylynn Mendez MERCHANDISER RETAIL REPRESENTATIVE 07/29/2014 Office visit Heena Dumont MD 07/25/2014 Nurse visit Heena Dumont MD 07/17/2014 Office visit Kaylynn Mendez MERCHANDISER RETAIL REPRESENTATIVE 07/11/2014 Office visit Heena Dumont MD 07/01/2014 Office visit Heena Dumont MD 06/25/2014 Office visit Kaylynn Mendez MERCHANDISER RETAIL REPRESENTATIVE 06/12/2014 Office visit Kaylynn Mendez MERCHANDISER RETAIL REPRESENTATIVE 06/06/2014 Office visit Kaylynn Mendez MERCHANDISER RETAIL REPRESENTATIVE 05/27/2014 Office visit Heena Dumont MD 04/20/2014 Office visit Yesica Falcon MERCHANDISER RETAIL REPRESENTATIVE 03/29/2014 Office visit Na Jones MERCHANDISER RETAIL REPRESENTATIVE 03/15/2014 Office visit Heena Dumont MD 2014 Office visit Heena Dumont MD 2014 [facility] John Hoskins MD 02/27/2014 Nurse visit Heena Dumont MD 02/13/2014 Office visit Lena El MERCHANDISER RETAIL REPRESENTATIVE 02/07/2014 Office visit Heena Dumont MD 02/03/2014 Office visit Na Jones MERCHANDISER RETAIL REPRESENTATIVE 01/30/2014 Office visit Kaylynn Mendez MERCHANDISER RETAIL REPRESENTATIVE 01/24/2014 Office visit Sundeep Russell MERCHANDISER RETAIL REPRESENTATIVE 01/16/2014 Office visit Kaylynn Walker MERCHANDISER RETAIL REPRESENTATIVE 01/10/2014 Nurse visit Kaylynn Mendez MERCHANDISER RETAIL REPRESENTATIVE 01/08/2014 Office visit Kaylynn Walker MERCHANDISER RETAIL REPRESENTATIVE 12/05/2013 Office visit Kaylynn Walker MERCHANDISER RETAIL REPRESENTATIVE 11/21/2013 Office visit Kaylynn Walker MERCHANDISER RETAIL REPRESENTATIVE 10/23/2013 Office visit Brittni Yanez MERCHANDISER RETAIL REPRESENTATIVE 10/17/2013 Nurse visit Heena Dumont MD 10/12/2013 Office visit Kaylynn Mendez MERCHANDISER RETAIL REPRESENTATIVE 10/02/2013 Office visit Heena Dumont MD 09/20/2013 Nurse visit Kaylynn Mendez MERCHANDISER RETAIL REPRESENTATIVE 09/20/2013 Voided Heena Dumont MD 09/14/2013 Office visit Kaylynn Walker MERCHANDISER RETAIL REPRESENTATIVE 09/05/2013 Office visit Sundeep Drew MERCHANDISER RETAIL REPRESENTATIVE 09/04/2013 Nurse visit Kaylynn Walker MERCHANDISER RETAIL REPRESENTATIVE 08/31/2013 Office visit Kyalynn Walker MERCHANDISER RETAIL REPRESENTATIVE 08/23/2013 Office visit Heena Dumont MD 08/10/2013 Office visit Kaylynn Walker MERCHANDISER RETAIL REPRESENTATIVE 07/25/2013 Office visit Kaylynn Walker MERCHANDISER RETAIL REPRESENTATIVE 07/18/2013 Office visit Kaylynn Walker MERCHANDISER RETAIL REPRESENTATIVE 07/12/2013 Office visit Kaylynn Walker MERCHANDISER RETAIL REPRESENTATIVE 06/28/2013 Nurse visit Kaylynn Walker MERCHANDISER RETAIL REPRESENTATIVE 06/14/2013 Nurse visit Kaylynn Walker MERCHANDISER RETAIL REPRESENTATIVE 06/08/2013 Nurse visit Kaylynn Walker MERCHANDISER RETAIL REPRESENTATIVE 05/31/2013 Nurse visit Chadd Norris DO 05/18/2013 Office visit Terese Davidson MD 05/16/2013 Office visit Kaylynn Walker MERCHANDISER RETAIL REPRESENTATIVE 05/09/2013 Office visit Kaylynn Mendez MERCHANDISER RETAIL REPRESENTATIVE 04/29/2013 [facility] John Hoskins MD 04/25/2013 Nurse visit Kaylynn Walker MERCHANDISER RETAIL REPRESENTATIVE 04/17/2013 Office visit Kaylynn Walker MERCHANDISER RETAIL REPRESENTATIVE 04/03/2013 Nurse visit Kaylynn Mendez MERCHANDISER RETAIL REPRESENTATIVE 04/03/2013 Office visit Terese Davidson MD 03/28/2013 Office visit Sundeep Russell MERCHANDISER RETAIL REPRESENTATIVE 03/21/2013 Office visit Kaylynn Mendez MERCHANDISER RETAIL REPRESENTATIVE 03/20/2013 Office visit Terese Davidson MD 03/14/2013 Nurse visit Kaylynn Walker MERCHANDISER RETAIL REPRESENTATIVE 03/05/2013 Nurse visit Kaylynn Mendez MERCHANDISER RETAIL REPRESENTATIVE 02/19/2013 Office visit Terese Davidson MD 02/16/2013 Nurse visit Kaylynn Mendez MERCHANDISER RETAIL REPRESENTATIVE 02/09/2013 Office visit Sundeep Russell MERCHANDISER RETAIL REPRESENTATIVE 02/08/2013 Nurse visit Kaylynn Walker MERCHANDISER RETAIL REPRESENTATIVE 02/01/2013 Nurse visit Kaylynn Walker MERCHANDISER RETAIL REPRESENTATIVE 01/26/2013 Nurse visit Sabrina Mendez INTEGRATED CIRCUIT FABRICATOR 01/25/2013 Office visit Kaylynn Walker MERCHANDISER RETAIL REPRESENTATIVE 01/22/2013 Office visit Yoan Castaneda MD 01/18/2013 Nurse visit Kaylynn Walker MERCHANDISER RETAIL REPRESENTATIVE 01/11/2013 Nurse visit Kaylynn Walker MERCHANDISER RETAIL REPRESENTATIVE 01/05/2013 Nurse visit Kaylynn Walker MERCHANDISER RETAIL REPRESENTATIVE 12/29/2012 Office visit Kaylynn Walker MERCHANDISER RETAIL REPRESENTATIVE 11/27/2012 Office visit Kaylynn Walker MERCHANDISER RETAIL REPRESENTATIVE 11/08/2012 Office visit Odell Tierney MD 11/08/2012 Voided Odell Tierney MD 11/07/2012 Office visit Kaylynn Walker MERCHANDISER RETAIL REPRESENTATIVE 10/31/2012 [facility] John Hoskins MD 10/31/2012 Office visit Kaylynn Mendez MERCHANDISER RETAIL REPRESENTATIVE 10/19/2012 Office visit Genoveva Ayala MERCHANDISER RETAIL REPRESENTATIVE 10/10/2012 Office visit Kaylynn Andrea MERCHANDISER RETAIL REPRESENTATIVE 10/03/2012 Office visit Kaylynn Walker MERCHANDISER RETAIL REPRESENTATIVE 09/26/2012 Office visit Kaylynn Walker MERCHANDISER RETAIL REPRESENTATIVE 09/06/2012 Office visit Kaylynn Mendez MERCHANDISER RETAIL REPRESENTATIVE 09/06/2012 Office visit Odell Tierney MD 08/31/2012 Voided Kaylynn Mendez MERCHANDISER RETAIL REPRESENTATIVE 07/28/2012 Office visit Kaylynn Mendez MERCHANDISER RETAIL REPRESENTATIVE 07/27/2012 Office visit David Joyner DO 07/20/2012 [facility] David Joyner DO 07/13/2012 [facility] David Joyner DO 07/11/2012 Office visit Kaylynn Mendez MERCHANDISER RETAIL REPRESENTATIVE 06/27/2012 [facility] Odell Tierney MD 06/21/2012 Office visit David Joyner DO 06/21/2012 Office visit Odell Tierney MD 06/20/2012 Office visit Britnti Yanez MERCHANDISER RETAIL REPRESENTATIVE 06/06/2012 Office visit Odell Tierney MD 05/03/2012 Office visit Kaylynn Mendez MERCHANDISER RETAIL REPRESENTATIVE 04/28/2012 Office visit Brittni Yanez MERCHANDISER RETAIL REPRESENTATIVE 04/11/2012 Office visit Kaylynn Mendez MERCHANDISER RETAIL REPRESENTATIVE 04/06/2012 [facility] John Hoskins MD 03/30/2012 Office visit Kaylynn Mendez MERCHANDISER RETAIL REPRESENTATIVE 03/15/2012 Office visit Kaylynn Mendez MERCHANDISER RETAIL REPRESENTATIVE 03/15/2012 Office visit Odell Tierney MD 02/09/2012 Office visit Kaylynn Mendez MERCHANDISER RETAIL REPRESENTATIVE 12/23/2011 Office visit Kaylynn Mendez MERCHANDISER RETAIL REPRESENTATIVE 11/02/2011 Office visit Kaylynn Mendez MERCHANDISER RETAIL REPRESENTATIVE 10/14/2011 Office visit Kaylynn Mendez MERCHANDISER RETAIL REPRESENTATIVE 09/27/2011 Office visit Kaylynn Mendez MERCHANDISER RETAIL REPRESENTATIVE 08/19/2011 Hospital John Hoskins MD 08/18/2011 [facility] John Hoskins MD 08/18/2011 Office visit Kaylynn Mendez MERCHANDISER RETAIL REPRESENTATIVE 08/02/2011 Office visit Kaylynn Mendez MERCHANDISER RETAIL REPRESENTATIVE 07/08/2011 Office visit Kaylynn Mendez MERCHANDISER RETAIL REPRESENTATIVE 07/05/2011 Office visit Odell Tierney MD 06/15/2011 Office visit Kaylynn Mendez MERCHANDISER RETAIL REPRESENTATIVE 05/14/2011 Office visit Kaylynn Mendez MERCHANDISER RETAIL REPRESENTATIVE 05/11/2011 Office visit Odell Tierney MD 04/28/2011 Office visit Kaylynn Mendez MERCHANDISER RETAIL REPRESENTATIVE 03/02/2011 Office visit Chadd Norris DO 02/17/2011 [...] Surgery Yoan Castaneda MD 12/10/2009 Office visit Oedll Tierney MD 11/26/2009 Office visit Yoan Castaneda MD 11/17/2009 Office visit Odell Tierney MD 11/10/2009 Office visit Chadd Norris DO
--- OUTSIDE RECORDS SUMMARY | 2018-05-09 18:34 | XMS REPORT ---
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 [employer] I/O Lancets 33 gauge miscellaneous misc 01/21/2016 use as directed Evestra miscellaneous strip 01/21/2016 07/19/2016 Test 2x daily, [...] 08/27/2014 use as directed for 99 days Elizabeth 5-325 mg oral tablet 06/17/2014 06/27/2014 take [...] a day as needed for 30 days [id number]-GF 3.5-10,000-1 mg/mL-unit/mL-% otic drops,suspension 201401/08/2015 instill 4 [...] Reviewed 04/28/2011 12:00 AM Decadron 1 mg ND#[id number] (Jr) Reviewed 04/28/2011 12:00 AM Depo-Medrol 80 mg NDC#[id number]-Viwgfpoe Reviewed 09/02/2015 12:00 AM Toradol 60 Mg NDC#3225-9530-47 Reviewed 09/02/2015 12:00 AM Phenergan, Up to 50 Mg R[facility] Medicaid Reviewed 09/16/2015 12:00 AM Toradol 60 Mg NDC#9300-8873-24 Reviewed 09/16/2015 12:00 AM Phenergan Up to 50 mg RHC Medicare Reviewed 05/11/2011 12:00 AM N BLOCK INJ OCCIPITAL Reviewed 05/11/2011 12:00 AM Kenalog Hl-[address]-20 ANNA Reviewed 11/13/2015 12:00 AM ASSAY OF [...] INJ SC/IM Reviewed 07/08/2011 12:00 AM Toradol,15mg [facility]#[id number], [place] Reviewed 07/08/2011 12:00 AM Phenergan 50 Mg Im [facility] 4963-4153-46 FP [place] Reviewed 01/21/2016 12:00 AM ECG MONIT/REPRT UP TO 48 HRS Returned 08/02/2011 12:00 AM THER/PROPH/DIAG INJ SC/IM Reviewed 08/02/2011 12:00 AM Decadron 1 mg ND#[id number] (Jr) Reviewed 08/02/2011 12:00 AM Depo-Medrol 80 mg ND#[id number]-Rnmdqmuw Reviewed 03/05/2016 12:00 AM COMPLETE CBC W/AUTO DIFF WBC Returned 03/05/2016 12:00 AM STREP A ASSAY W/OPTIC Returned 03/05/2016 12:00 AM C-REACTIVE PROTEIN Returned 03/18/2016 12:00 AM [facility] MEDICARE - flu vaccine administration Reviewed [...] Reviewed 09/27/2011 12:00 AM Depo-Medrol 80 mg [facility]#[id number]-Bdaopxlp Reviewed 07/06/2016 12:00 AM CHEST X-RAY 4/> VIEWS Returned 10/14/2011 12:00 AM X-RAY EXAM OF ABDOMEN Reviewed 10/14/2011 12:00 AM URINALYSIS AUTO W/O SCOPE Reviewed 12/23/2011 12:00 AM THER/PROPH/DIAG INJ SC/IM Reviewed 12/23/2011 12:00 AM Decadron 1 mg ND#[id number] (Jr) Reviewed 12/23/2011 12:00 AM Depo-Medrol 80 mg ND#[id number]-Fmygbkof Reviewed 02/09/2012 12:00 AM THER/PROPH/DIAG INJ SC/IM Reviewed 02/09/2012 12:00 AM Decadron 1 mg ND#[id number] (Jr) Reviewed 02/09/2012 12:00 AM Depo-Medrol 80 mg ND#[id number]-Ockeerru Reviewed 03/15/2012 12:00 AM N BLOCK INJ OCCIPITAL Reviewed 03/15/2012 12:00 AM Kenalog Ey-[address]-20 ANNA Reviewed 04/11/2012 12:00 AM COMPLETE CBC W/AUTO DIFF WBC Reviewed 04/11/2012 12:00 AM COMPREHEN METABOLIC PANEL Reviewed 04/11/2012 12:00 AM LIPID PANEL Reviewed 04/11/2012 12:00 AM ASSAY THYROID STIM HORMONE Reviewed 06/20/2012 12:00 AM THER/PROPH/DIAG INJ SC/IM Reviewed 06/20/2012 12:00 AM Decadron, Per 1 Mg ND# [address]-55 Reviewed 06/20/2012 12:00 AM Depo-Medrol, Per 80 Mg ND#4567-2019-12 Reviewed 09/06/2012 12:00 AM N BLOCK INJ OCCIPITAL Reviewed 09/06/2012 12:00 AM Kenalog Cc-[address]-20 ANNA Reviewed 09/06/2012 12:00 AM X-RAY EXAM RIBS UNI 2 VIEWS Reviewed 09/26/2012 12:00 AM THER/PROPH/DIAG INJ SC/IM Reviewed 09/26/2012 12:00 AM Decadron, Per 1 Mg ND# [address]-39 Reviewed 09/26/2012 12:00 AM Depo-Medrol, Per 80 Mg ND#9008-6013-18 Reviewed 10/03/2012 12:00 AM URINALYSIS AUTO W/O SCOPE Reviewed 10/03/2012 12:00 AM THER/PROPH/DIAG INJ SC/IM Reviewed 10/03/2012 12:00 AM Toradol 60 Mg ND#2163-3365-42 Reviewed 10/03/2012 12:00 AM Phenergan, 25Mg ND#7881-9568-19 Reviewed 10/19/2012 12:00 AM N BLOCK INJ OCCIPITAL Reviewed 10/19/2012 12:00 AM Kenalog, Per 10 Mg ND#5915-4541-10 Reviewed 10/19/2012 12:00 AM Toradol 30 Mg [facility]#1333-1454-01 Reviewed 10/19/2012 12:00 AM THER/PROPH/DIAG INJ SC/IM Reviewed 10/31/2012 12:00 AM COMPLETE CBC W/AUTO DIFF WBC Reviewed 10/31/2012 12:00 AM COMPREHEN METABOLIC PANEL Reviewed 10/31/2012 12:00 AM LIPID PANEL Reviewed 11/03/2012 12:[address] THORAX W/O & W/DYE Reviewed 11/08/2012 12:00 AM N BLOCK INJ OCCIPITAL Reviewed 11/08/2012 12:00 AM Kenalog Ye-[address]-20 ANNA Reviewed 11/27/2012 12:00 AM COMPLETE CBC [...] 01/25/2013 12:00 AM Decadron, Per 1 Mg [facility]# [address]-90 Reviewed 01/25/2013 12:00 AM Depo-Medrol, Per 80 Mg [facility]#1619-5517-04 Reviewed 01/26/2013 12:00 AM IMMUNOTHERAPY INJECTIONS Reviewed [...] 05/16/2013 12:00 AM Decadron, Per 1 Mg [facility]# [address]-29 Reviewed 05/16/2013 12:00 AM Depo-Medrol, Per 80 Mg [facility]#2711-0250-56 Reviewed 05/31/2013 12:00 AM IMMUNOTHERAPY INJECTIONS Reviewed 06/08/2013 12:00 AM IMMUNOTHERAPY INJECTIONS Reviewed 06/14/2013 12:00 AM IMMUNOTHERAPY INJECTIONS Reviewed 06/28/2013 12:00 AM IMMUNOTHERAPY INJECTIONS Reviewed 07/12/2013 12:00 AM X-RAY EXAM RIBS UNI 2 VIEWS Reviewed 07/18/2013 12:00 AM Toradol 60 Mg [facility]#7303-2987-94 Reviewed 07/18/2013 12:00 AM THER/PROPH/DIAG INJ SC/IM Reviewed 08/23/2013 12:00 AM COMPLETE CBC W/AUTO DIFF WBC Reviewed 08/23/2013 12:00 AM COMPREHEN METABOLIC PANEL Reviewed 08/23/2013 12:00 AM LIPID PANEL Reviewed 08/31/2013 12:00 AM X-RAY EXAM OF LOWER LEG Reviewed 09/04/2013 12:00 AM IMMUNOTHERAPY INJECTIONS Reviewed 09/14/2013 12:00 AM THER/PROPH/DIAG INJ SC/IM Reviewed 09/14/2013 12:00 AM Decadron, Per 1 Mg [facility]# [address]-16 Reviewed 09/14/2013 12:00 AM Depo-Medrol, Per 80 Mg [facility]#2212-5674-75 Reviewed 09/20/2013 12:00 AM IMMUNOTHERAPY INJECTIONS Reviewed [...] INJ OCCIPITAL Reviewed 12/10/2009 12:00 AM Kenalog Gp-[address]-20 ANNA Reviewed 12/16/2009 12:00 AM HIV-1ANTIBODY Reviewed 12/16/2009 12:00 AM COMPLETE CBC W/AUTO DIFF WBC Reviewed 12/16/2009 12:00 AM METABOLIC PANEL TOTAL CA Reviewed 12/16/2009 12:00 AM Type and screen Reviewed 12/16/2009 12:00 AM PROTHROMBIN TIME Reviewed 12/16/2009 12:00 AM THROMBOPLASTIN TIME PARTIAL Reviewed 03/18/2010 12:00 AM DRAIN/INJ JOINT/BURSA W/O US Reviewed 03/18/2010 12:00 AM Kengretta Kb-[address]-20 ANNA Reviewed 11/21/2013 12:00 AM RADEX HAND MINIMUM 3 VIEWS Reviewed 06/03/2010 12:00 AM INJ TRIGGER POINT 1/2 MUSCL Reviewed 06/03/2010 12:00 AM Kenalog per 10Mg -[facility]#[address]-65(Niall) Reviewed 12/05/2013 12:00 AM COMPLETE CBC W/AUTO [...] Reviewed 07/23/2010 12:00 AM Kenalog per 10Mg Im-[facility]#[address]-68(Niall) Reviewed 2014 12:00 AM COMPLETE CBC W/AUTO [...] INJ OCCIPITAL Reviewed 10/01/2010 12:00 AM Kenalog Ev-[address]-20 ANNA Reviewed 07/25/2014 12:00 AM THER/PROPH/DIAG INJ [...] 141 Influenza 04/24/2014 sanofi pasteur PMC Fluzone [id number] Intramuscular Left Upper Arm 02/27/2014 01/15/2014 141 Influenza 02/13/2015 sanofi pasteur PMC Fluzone [id number] Intramuscular Left Deltoid 02/13/2015 01/03/2015 140 Tdap 06/06/2015 [employer] SKB BOOSTRIX [id number] Intramuscular Left Deltoid 06/06/2015 07/23/2014 115 Influenza 03/18/2016 sanofi pasteur PMC Fluzone [id number] Intramuscular Left Deltoid 03/17/2016 01/03/2015 141 History [...] Number Policy Group Number Start Date Medicare [facility] Medicare [facility] [id number] N/A [facility] - [facility] - [facility] Comm [id number] N/A Medicare Part A Medicare - Lab/Xray [id number] N/A Medicare Part B Medicare Of [place] [id number] Monday, February 28, 2000 [place] [facility] [place] [facility] [place] [id number] Tuesday, November 10, 2009 Medicare Part A Medicare Part A [id number] N/A [place] [employer] - [facility] [place] [employer] - [facility] [id number] [facility] Plan of [place] [facility] Plan of [id number] Wednesday, May 30, 2012 History of Encounters Visit Date Visit Type Provider 07/09/2016 Office visit Riccardo Cardoza MD 07/06/2016 Office visit Heena Dumont MD 06/18/2016 Office visit Kaylynn Mendez [place] [facility] 06/07/2016 Office visit Sundeep Russell [place] [facility] 06/04/2016 Office visit Heena Dumont MD 05/13/2016 Office visit Heena Dumont MD 05/03/2016 Office visit Heena Dumont MD 04/26/2016 Office visit Kaylynn Mendez [place] [facility] 04/14/2016 Office visit Heena Dumont MD 04/13/2016 Office visit Kaylynn Mendez [place] [facility] 04/02/2016 Office visit Lena El [place] [facility] 04/02/2016 Office visit Heena Dumont MD 03/26/2016 Office visit Yesica Falcon [place] [facility] 03/17/2016 Office visit Heena Dumont MD 03/05/2016 Office visit Kaylnyn Mendez [place] [facility] 02/16/2016 Office visit Heena Dumont MD 02/14/2016 Office visit Na Jones [place] [facility] 01/16/2016 Office visit Heena Dumont MD 12/16/2015 Office visit Heena Dumont MD 11/24/2015 Office visit Kaylynn Mendez [place] [facility] 11/18/2015 Office visit Heena Dumont MD 11/03/2015 Office visit Sundeep Russell [place] [facility] 10/20/2015 Office visit Kaylynn Mendez [place] [facility] 09/23/2015 Office visit Kaylynn Mendez [place] [facility] 09/16/[address] Pepe Figueroa MD 09/02/2015 Office visit Kaylynn Mendez [place] [facility] 09/01/2015 Office visit Kaylynn Mendez [place] [facility] 07/30/2015 Office visit Heena Dumont MD 07/15/2015 Office visit Kaylynn Mendez [place] [facility] 07/04/2015 Office visit Heena Dumont MD 06/06/2015 Office visit Heena Dumont MD 06/06/2015 Office visit Kaylynn Mendez [place] [facility] 06/02/2015 Office visit Kaylynn Walker [place] [facility] 05/26/2015 Office visit Kaylynn Walker [place] [facility] 05/20/2015 Office visit Kaylynn Walker [place] [facility] 05/08/2015 Office visit Heena Dumont MD 05/06/2015 Office visit Kaylynn Walker [place] [facility] 04/29/2015 Office visit Kaylynn Walker [place] [facility] 03/27/2015 Voided Brittni Yanez [place] [facility] 03/21/2015 Office visit Heena Dumont MD 03/12/2015 Office visit Kaylynn Mendez [place] [facility] 02/26/2015 Office visit Brittni Yanez [place] [facility] 02/13/2015 Office visit Heena Dumont MD 01/15/2015 Office visit Brittni Yanez [place] [facility] 01/13/2015 Office visit Heena Dumont MD 01/08/[address] Carol Fowler MD 01/01/2015 Office visit Brittni Yanez [place] [facility] 12/13/2014 Office visit Heena Dumont MD 11/27/2014 Office visit Kaylynn Mendez [place] [facility] 11/14/2014 Office visit Heena Dumont MD 10/18/2014 Office visit Heena Dumont MD 10/17/2014 [facility] John Hoskins MD 10/09/2014 Office visit Heena Dumont MD 09/25/2014 Office visit Heena Dumont MD 09/17/2014 Office visit Kaylynn Mendez [place] [facility] 09/04/2014 Office visit Heena Dumont MD 08/28/2014 Office visit Kaylynn Mendez [place] [facility] 08/23/2014 [facility] John Hoskins MD 08/01/2014 Office visit Kaylynn Mendez [place] [facility] 07/29/2014 Office visit Heena Dumont MD 07/25/2014 Nurse visit Heena Dumont MD 07/17/2014 Office visit Kaylynn Mendez [place] [facility] 07/11/2014 Office visit Heena Dumont MD 07/01/2014 Office visit Heena Dumont MD 06/25/2014 Office visit Kaylynn Mendez [place] [facility] 06/12/2014 Office visit Kaylynn Mendez [place] [facility] 06/06/2014 Office visit Kaylynn Mendez [place] [facility] 05/27/2014 Office visit Heena Dumont MD 04/20/2014 Office visit Yesica Falcon [place] [facility] 03/29/2014 Office visit Na Jones [place] [facility] 03/15/2014 Office visit Heena Dumont MD 2014 Office visit Heena Dumont MD 2014 [facility] John Hoskins MD 02/27/2014 Nurse visit Heena Dumont MD 02/13/2014 Office visit Lena lE [place] [facility] 02/07/2014 Office visit Heena Dumont MD 02/03/2014 Office visit Na Jones [place] [facility] 01/30/2014 Office visit Kaylynn Mendez [place] [facility] 01/24/2014 Office visit Sundeep Russell [place] [facility] 01/16/2014 Office visit Kaylynn Walker [place] [facility] 01/10/2014 Nurse visit Kaylynn Walker [place] [facility] 01/08/2014 Office visit Kaylynn Walker [place] [facility] 12/05/2013 Office visit Kaylynn Walker [place] [facility] 11/21/2013 Office visit Kaylynn Walker [place] [facility] 10/23/2013 Office visit Brittni Yanez [place] [facility] 10/17/2013 Nurse visit Heena Dumont MD 10/12/2013 Office visit Kaylynn Walker [place] [facility] 10/02/2013 Office visit Heena Dumont MD 09/20/2013 Nurse visit Kaylynn Mendez [place] [facility] 09/20/2013 Voided Heena Dumont MD 09/14/2013 Office visit Kaylynn Walker [place] [facility] 09/05/2013 Office visit Sundeep Russell [place] [facility] 09/04/2013 Nurse visit Kaylynn Mendez [place] [facility] 08/31/2013 Office visit Kaylynn Walker [place] [facility] 08/23/2013 Office visit Heena Dumont MD 08/10/2013 Office visit Kaylynn Walker [place] [facility] 07/25/2013 Office visit Kaylynn Walker [place] [facility] 07/18/2013 Office visit Kaylynn Walker [place] [facility] 07/12/2013 Office visit Kaylynn Walker [place] [facility] 06/28/2013 Nurse visit Kaylynn Walker [place] [facility] 06/14/2013 Nurse visit Kaylynn Walker [place] [facility] 06/08/2013 Nurse visit Kaylynn Walker [place] [facility] 05/31/2013 Nurse visit Chadd Norris DO 05/18/2013 Office visit Terese Davidson MD 05/16/2013 Office visit Kaylynn Mendez [place] [facility] 05/09/2013 Office visit Kaylynn Mendez [place] [facility] 04/29/2013 [facility] John Hoskins MD 04/25/2013 Nurse visit Kaylynn Walker [place] [facility] 04/17/2013 Office visit Kaylynn Walker [place] [facility] 04/03/2013 Nurse visit Kaylynn Walker [place] [facility] 04/03/2013 Office visit Terese Davidson MD 03/28/2013 Office visit Sundeep Russell [place] [facility] 03/21/2013 Office visit Kaylynn Mendez [place] [facility] 03/20/2013 Office visit Terese Davidson MD 03/14/2013 Nurse visit Kaylynn Mendez [place] [facility] 03/05/2013 Nurse visit Kaylynn Mendez [place] [facility] 02/19/2013 Office visit Terese Davidson MD 02/16/2013 Nurse visit Kaylynn Walker [place] [facility] 02/09/2013 Office visit Sundeep Russell [place] [facility] 02/08/2013 Nurse visit Kaylynn Andrea [place] [facility] 02/01/2013 Nurse visit Kaylynn Andrea [place] [facility] 01/26/2013 Nurse visit Sabrina Andrea [employer] PITCHER 01/25/2013 Office visit Kaylynn Andrea [place] [facility] 01/22/2013 Office visit Yoan Castaneda MD 01/18/2013 Nurse visit Kaylynn Andrea [place] [facility] 01/11/2013 Nurse visit Kaylynn Walker [place] [facility] 01/05/2013 Nurse visit Kaylynn Walker [place] [facility] 12/29/2012 Office visit Kaylynn Andrea [place] [facility] 11/27/2012 Office visit Kaylynn Mendez [place] [facility] 11/08/2012 Office visit Odell Tierney MD 11/08/2012 Voided Odell Tierney MD 11/07/2012 Office visit Kaylynn Mendez [place] [facility] 10/31/2012 [facility] John Hoskins MD 10/31/2012 Office visit Kaylynn Mendez [place] [facility] 10/19/2012 Office visit Genoveva Ayala [place] [facility] 10/10/2012 Office visit Kaylynn Mendez [place] [facility] 10/03/2012 Office visit Kaylynn Andrea [place] [facility] 09/26/2012 Office visit Kaylynn Mendez [place] [facility] 09/06/2012 Office visit Kaylynn Mnedez [place] [facility] 09/06/2012 Office visit Odell Tierney MD 08/31/2012 Voided Kaylynn Mendez [place] [facility] 07/28/2012 Office visit Kaylynn Mendez [place] [facility] 07/27/2012 Office visit David Joyner DO 07/20/2012 [facility] 07/13/2012 [facility] 07/11/2012 Office visit Kaylynn Mendez [place] [facility] 06/27/2012 [facility] Odell Tierney MD 06/21/2012 Office visit David Joyner DO 06/21/2012 Office visit Odell Tierney MD 06/20/2012 Office visit Brittni Yanez [place] [facility] 06/06/2012 Office visit Odell Tierney MD 05/03/2012 Office visit Kaylynn Mendez [place] [facility] 04/28/2012 Office visit Brittni Yanez [place] [facility] 04/11/2012 Office visit Kaylynn Mendez [place] [facility] 04/06/2012 [facility] John Hoskins MD 03/30/2012 Office visit Kaylynn Mendez [place] [facility] 03/15/2012 Office visit Kaylynn Mendez [place] [facility] 03/15/2012 Office visit Odell Tierney MD 02/09/2012 Office visit Kaylynn Mendez [place] [facility] 12/23/2011 Office visit Kaylynn Mendez [place] [facility] 11/02/2011 Office visit Kaylynn Mendez [place] [facility] 10/14/2011 Office visit Kaylynn Mendez [place] [facility] 09/27/2011 Office visit Kaylynn Mendez [place] [facility] 08/19/2011 Hospital John Hoskins MD 08/18/2011 Hospital John Hoskins MD 08/18/2011 Office visit Kaylynn Mendez [place] [facility] 08/02/2011 Office visit Kaylynn Mendez [place] [facility] 07/08/2011 Office visit Kaylynn Mendez [place] [facility] 07/05/2011 Office visit Odell Tierney MD 06/15/2011 Office visit Kaylynn Mendez [place] [facility] 05/14/2011 Office visit Kaylynn Mendez [place] [facility] 05/11/2011 Office visit Odell Tierney MD 04/28/2011 Office visit Kaylynn Mendez [place] [facility] 03/02/2011 Office visit Chadd Norris DO 02/17/2011 [...]
--- OUTSIDE RECORDS SUMMARY | 2018-05-09 18:39 | XMS REPORT ---
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 Name Role Phone Sundeep Russell PCP Allergies [...] SPASM OneTouch Delnatalio Lancets 33 gauge [facility] 08/21/2014 use as directed Calcium 500 + [...] route every 8 hours for 30 days azithromycin 250 mg oral [...] 08/27/2014 use as directed for 99 days Acosta 5-325 mg oral tablet 06/17/2014 06/27/2014 take [...] a day as needed for 30 days ymhafmor-cvwehexgt-LT 3.5-10,000-1 mg/mL-unit/mL-% otic drops,suspension 201401/08/2015 instill 4 [...] 10/11/2015 use as directed for 99 days Discontinued Name Start Date Discontinued Date [...] Reviewed 04/28/2011 12:00 AM Decadron 1 mg ND#[id number] (Jr) Reviewed 04/28/2011 12:00 AM Depo-Medrol 80 mg NDC#[id number]-Tebiwbml Reviewed 09/02/2015 12:00 AM Toradol 60 Mg NDC#8353-2064-37 Reviewed 09/02/2015 12:00 AM Phenergan, Up to 50 Mg RHC Medicaid Reviewed 09/16/2015 12:00 AM Toradol 60 Mg NDC#0471-7217-10 Reviewed 09/16/2015 12:00 AM Phenergan Up to 50 mg RHC Medicare Reviewed 05/11/2011 12:00 AM N BLOCK INJ OCCIPITAL Reviewed 05/11/2011 12:00 AM Kenalog Mi-[address]-20 ANNA Reviewed 06/15/2011 12:00 AM COMPLETE CBC W/AUTO DIFF WBC Returned 06/15/2011 12:00 AM COMPREHEN METABOLIC PANEL Returned 07/08/2011 12:00 AM THER/PROPH/DIAG INJ SC/IM Reviewed 07/08/2011 12:00 AM Toradol,15mg ND#[id number], Hetmejiaer Reviewed 07/08/2011 12:00 AM Phenergan 50 Mg Im Nd 6711-0175-55 FP [place] Reviewed 08/02/2011 12:00 AM THER/PROPH/DIAG INJ SC/IM Reviewed 08/02/2011 12:00 AM Decadron 1 mg NDC#[id number] (Jr) Reviewed 08/02/2011 12:00 AM Depo-Medrol 80 mg NDC#[id number]-Bhukhhlh Reviewed 09/27/2011 12:00 AM THER/PROPH/DIAG INJ SC/IM Reviewed 09/27/2011 12:00 AM Depo-Medrol 80 mg NDC#[id number]-Yghaefpg Reviewed 10/14/2011 12:00 AM X-RAY EXAM OF ABDOMEN Returned 10/14/2011 12:00 AM URINALYSIS AUTO W/O SCOPE Reviewed 12/23/2011 12:00 AM THER/PROPH/DIAG INJ SC/IM Reviewed 12/23/2011 12:00 AM Decadron 1 mg NDC#[id number] (Jr) Reviewed 12/23/2011 12:00 AM Depo-Medrol 80 mg NDC#[id number]-Xdmopfss Reviewed 02/09/2012 12:00 AM THER/PROPH/DIAG INJ SC/IM Reviewed 02/09/2012 12:00 AM Decadron 1 mg NDC#[id number] (Jr) Reviewed 02/09/2012 12:00 AM Depo-Medrol 80 mg NDC#[id number]-Kvkeqxnd Reviewed 03/15/2012 12:00 AM N BLOCK INJ OCCIPITAL Reviewed 03/15/2012 12:00 AM Kenalog Dy-[address]-20 ANNA Reviewed 04/11/2012 12:00 AM COMPLETE CBC W/AUTO DIFF WBC Returned 04/11/2012 12:00 AM COMPREHEN METABOLIC PANEL Returned 04/11/2012 12:00 AM LIPID PANEL Returned 04/11/2012 12:00 AM ASSAY THYROID STIM HORMONE Returned 06/20/2012 12:00 AM THER/PROPH/DIAG INJ SC/IM Reviewed 06/20/2012 12:00 AM Decadron, Per 1 Mg [facility]# [address]-22 Reviewed 06/20/2012 12:00 AM Depo-Medrol, Per 80 Mg ND#3496-9061-10 Reviewed 09/06/2012 12:00 AM N BLOCK INJ OCCIPITAL Reviewed 09/06/2012 12:00 AM Kenalog Iy-[address]-20 ANNA Reviewed 09/06/2012 12:00 AM X-RAY EXAM RIBS UNI 2 VIEWS Returned 09/26/2012 12:00 AM THER/PROPH/DIAG INJ SC/IM Reviewed 09/26/2012 12:00 AM Decadron, Per 1 Mg [facility]# [address]-72 Reviewed 09/26/2012 12:00 AM Depo-Medrol, Per 80 Mg [facility]#2733-2038-39 Reviewed 10/03/2012 12:00 AM URINALYSIS AUTO W/O SCOPE Reviewed 10/03/2012 12:00 AM THER/PROPH/DIAG INJ SC/IM Reviewed 10/03/2012 12:00 AM Toradol 60 Mg ND#7351-4830-59 Reviewed 10/03/2012 12:00 AM Phenergan, 25Mg [facility]#6661-1825-19 Reviewed 10/19/2012 12:00 AM N BLOCK INJ OCCIPITAL Reviewed 10/19/2012 12:00 AM Kenalog, Per 10 Mg [facility]#6844-8397-70 Reviewed 10/19/2012 12:00 AM Toradol 30 Mg [facility]#0475-8256-46 Reviewed 10/19/2012 12:00 AM THER/PROPH/DIAG INJ SC/IM Reviewed 10/31/2012 12:00 AM COMPLETE CBC W/AUTO DIFF WBC Returned 10/31/2012 12:00 AM COMPREHEN METABOLIC PANEL Returned 10/31/2012 12:00 AM LIPID PANEL Returned 11/03/2012 12:[address] THORAX W/O & W/DYE Returned 11/08/2012 12:00 AM N BLOCK INJ OCCIPITAL Reviewed 11/08/2012 12:00 AM Kenalog Fl-[address]-20 ANNA Reviewed 11/27/2012 12:00 AM COMPLETE CBC [...] 01/25/2013 12:00 AM Decadron, Per 1 Mg [facility]# [address]-35 Reviewed 01/25/2013 12:00 AM Depo-Medrol, Per 80 Mg [facility]#1704-8233-50 Reviewed 01/26/2013 12:00 AM IMMUNOTHERAPY INJECTIONS Returned [...] 05/16/2013 12:00 AM Decadron, Per 1 Mg [facility]# [address]-06 Reviewed 05/16/2013 12:00 AM Depo-Medrol, Per 80 Mg [facility]#9049-8762-19 Reviewed 05/31/2013 12:00 AM IMMUNOTHERAPY INJECTIONS Reviewed 06/08/2013 12:00 AM IMMUNOTHERAPY INJECTIONS Reviewed 06/14/2013 12:00 AM IMMUNOTHERAPY INJECTIONS Reviewed 06/28/2013 12:00 AM IMMUNOTHERAPY INJECTIONS Reviewed 07/12/2013 12:00 AM X-RAY EXAM RIBS UNI 2 VIEWS Returned 07/18/2013 12:00 AM Toradol 60 Mg [facility]#4512-1648-83 Reviewed 07/18/2013 12:00 AM THER/PROPH/DIAG INJ SC/IM Reviewed 08/23/2013 12:00 AM COMPLETE CBC W/AUTO DIFF WBC Reviewed 08/23/2013 12:00 AM COMPREHEN METABOLIC PANEL Reviewed 08/23/2013 12:00 AM LIPID PANEL Reviewed 08/31/2013 12:00 AM X-RAY EXAM OF LOWER LEG Returned 09/04/2013 12:00 AM IMMUNOTHERAPY INJECTIONS Reviewed 09/14/2013 12:00 AM THER/PROPH/DIAG INJ SC/IM Reviewed 09/14/2013 12:00 AM Decadron, Per 1 Mg [facility]# [address]-83 Reviewed 09/14/2013 12:00 AM Depo-Medrol, Per 80 Mg [facility]#9348-3969-26 Reviewed 09/20/2013 12:00 AM IMMUNOTHERAPY INJECTIONS Reviewed [...] INJ OCCIPITAL Reviewed 12/10/2009 12:00 AM Kenalog Xu-[address]-20 ANNA Reviewed 12/16/2009 12:00 AM HIV-1ANTIBODY Reviewed 12/16/2009 12:00 AM COMPLETE CBC W/AUTO DIFF WBC Reviewed 12/16/2009 12:00 AM METABOLIC PANEL TOTAL CA Reviewed 12/16/2009 12:00 AM Type and screen Reviewed 12/16/2009 12:00 AM PROTHROMBIN TIME Reviewed 12/16/2009 12:00 AM THROMBOPLASTIN TIME PARTIAL Reviewed 03/18/2010 12:00 AM DRAIN/INJ JOINT/BURSA W/O US Reviewed 03/18/2010 12:00 AM Kenalog Tc-[address]-20 ANNA Reviewed 11/21/2013 12:00 AM RADEX HAND MINIMUM 3 VIEWS Returned 06/03/2010 12:00 AM INJ TRIGGER POINT 1/2 MUSCL Reviewed 06/03/2010 12:00 AM Kenalog per 10Mg Im-Ndc#[address]-73(Niall) Reviewed 12/05/2013 12:00 AM COMPLETE CBC W/AUTO [...] Reviewed 07/23/2010 12:00 AM Kenalog per 10Mg Im-Ndc#[address]-99(Niall) Reviewed 2014 12:00 AM COMPLETE CBC W/AUTO [...] INJ OCCIPITAL Reviewed 10/01/2010 12:00 AM Kenalog Eb-[address]-20 ANNA Reviewed 07/25/2014 12:00 AM THER/PROPH/DIAG INJ [...] 0.60 mg/dLCALCIUM 10.90 mg/ dLeGFR >60 mL/min/1.73 [id number] 45.0 U/L 08/31/2013 10:54 AM GLUCOSE 255.0 [...] 0.40 mg/ dLCALCIUM 10.60 mg/dLeGFR >60 mL/min/1.73 [id number] 369.0 mg/ dLCHOLESTEROL 153.0 mg/dLHDL 26.0 mg/dLLDL [...] BILI 0.30 mg/dLCALCIUM 10.0 mg/dLeGFR >60 mL/min/1.73 [id number] YELLOW APPEARANCE CLEAR SPEC GRAV 1.010 pH 5.5 PROTEIN NEGATIVE GLUCOSE NEGATIVE KETONE NEGATIVE BILIRUBIN NEGATIVE BLOOD NEGATIVE NITRITE NEGATIVE LEUK SCREEN NEGATIVE HGB A1C 6.30 %Est Avg Glucose 134.1 mg/dLMICROALBUMIN UR <0.5 MG/DL 02/13/2015 4:38 PM RMSF, IgG, EIA Negative Dejuan [facility] Spotted Fever,IgM 0.51 E. chaffeensis (HME) [...] 141 Influenza 04/24/2014 sanofi pasteur PMC Fluzone [id number] Intramuscular Left Upper Arm 02/27/2014 01/15/2014 141 Influenza 02/13/2015 sanofi pasteur PMC Fluzone [id number] Intramuscular Left Deltoid 02/13/2015 01/03/2015 140 Tdap 06/06/2015 [employer] SKB BOOSTRIX [id number] Intramuscular Left Deltoid 06/06/2015 [...] Muscle Spasm b 6 2011 1:58PM Headache Jun 9 2011 [...] infection, unspecified type Nov 03 2015 9:29AM Payers Insurance Name Company Name Plan Name Plan Number Policy Number Policy Group Number Start Date Medicare Part A Medicare RHC [id number] N/A [facility] [id number] N/A Medicare Part A Medicare - Lab/Xray [id number] N/A Medicare Part B Medicare Of [place] [id number] Monday, February 28, 2000 [place] [employer] [place] [id number] Tuesday, November 10, 2009 Medicare Part A Medicare Part A [id number] N/A [place] Manager Social Responsibility Prog [facility] - RH [id number] May [facility] Plan of [id number] Wednesday, May 30, 2012 History of Encounters Visit Date Visit Type Provider 11/03/2015 Office visit Sundeep Russell APRN 10/20/2015 Office visit Kaylynn Mendez [employer]VEYING 09/23/2015 Office visit Kaylynn Mendez [employer]YING 09/16/[address] Pepe Figueroa MD 09/02/2015 Office visit Kaylynn Mendez [employer] 09/01/2015 Office visit Kaylynn Mendez [employer]VEYING 07/30/2015 Office visit Heena Dumont MD 07/15/2015 Office visit Kaylynn Mendez [employer]VEYING 07/04/2015 Office visit Heena Dumont MD 06/06/2015 Office visit Heena Dumont MD 06/06/2015 Office visit Kaylynn Mendez [employer]VEYING 06/02/2015 Office visit Kaylynn Walker [employer] SURVEYING 05/26/2015 Office visit Kaylynn Walker [employer]VEYING 05/20/2015 Office visit Kaylynn Walker [employer] SURVEYING 05/08/2015 Office visit Heena Dumont MD 05/06/2015 Office visit Kaylynn Mendez [employer]VEYING 04/29/2015 Office visit Kaylynn Walker [employer]VEYING 03/27/2015 Voided Brittni Yanez [employer]VEYING 03/21/2015 Office visit Heena Dumont MD 03/12/2015 Office visit Kaylynn Mendez [employer]VEYING 02/26/2015 Office visit Brittni Yanez [employer]VEYING 02/13/2015 Office visit Heena Dumont MD 01/15/2015 Office visit Brittni Yanez [employer]VEYING 01/13/2015 Office visit Heena Dumont MD 01/08/[address] Carol Fowler MD 01/01/2015 Office visit Brittni Yanez [employer]VEYING 12/13/2014 Office visit Heena Dumont MD 11/27/2014 Office visit Kaylynn Mendez [employer]VEYING 11/14/2014 Office visit Heena Dumont MD 10/18/2014 Office visit Heena Dumont MD 10/17/2014 Hospital John Hoskins MD 10/09/2014 Office visit Heena Dumont MD 09/25/2014 Office visit Heena Dumont MD 09/17/2014 Office visit Kaylynn Mendez [employer]VEYING 09/04/2014 Office visit Heena Dumont MD 08/28/2014 Office visit Kaylynn Mendez [employer]VEYING 08/23/2014 [facility] Hoskins MD 08/01/2014 Office visit Kaylynn Mendez [employer]VEYING 07/29/2014 Office visit Heena Dumont MD 07/25/2014 Nurse visit Heena Dumont MD 07/17/2014 Office visit Kaylynn Mendez [employer]VEYING 07/11/2014 Office visit Heena Dumont MD 07/01/2014 Office visit Heena Dumont MD 06/25/2014 Office visit Kaylynn Mendez [employer]VEYING 06/12/2014 Office visit Kaylynn Mendez [employer] SURVEYING 06/06/2014 Office visit Kaylynn Mendez [employer] SURVEYING 05/27/2014 Office visit Heena Dumont MD 04/20/2014 Office visit Yesica Falcon [employer]VEYING 03/29/2014 Office visit Na Jones [employer] SURVEYING 03/15/2014 Office visit Heena Dumont MD 2014 Office visit Heena Dumont MD 2014 [facility] John Hoskins MD 02/27/2014 Nurse visit Heena Dumont MD 02/13/2014 Office visit Lena El [employer]VEYING 02/07/2014 Office visit Heena Dumont MD 02/03/2014 Office visit Na Jones [employer]VEYING 01/30/2014 Office visit Kaylynn Mendez [employer]VEYING 01/24/2014 Office visit Sundeep Russell [employer]VEYING 01/16/2014 Office visit Kaylynn Walker [employer]VEYING 01/10/2014 Nurse visit Kaylynn Walker [employer]VEYING 01/08/2014 Office visit Kaylynn Walker [employer]VEYING 12/05/2013 Office visit Kaylynn Walker [employer] SURVEYING 11/21/2013 Office visit Kaylynn Walker [employer] SURVEYING 10/23/2013 Office visit Brittni Yanez [employer] SURVEYING 10/17/2013 Nurse visit Heena Dumont MD 10/12/2013 Office visit Kaylynn Walker [employer]VEYING 10/02/2013 Office visit Heena Dumont MD 09/20/2013 Nurse visit Kaylynn Mendez [employer]VEYING 09/20/2013 Voided Heena Dumont MD 09/14/2013 Office visit Kaylynn Walker [employer]VEYING 09/05/2013 Office visit Sundeep Russell [employer]VEYING 09/04/2013 Nurse visit Kaylynn Mendez [employer]VEYING 08/31/2013 Office visit Kaylynn Walker [employer]VEYING 08/23/2013 Office visit Heena Dumont MD 08/10/2013 Office visit Kaylynn Walker [employer] SURVEYING 07/25/2013 Office visit Kaylynn Walker [employer] SURVEYING 07/18/2013 Office visit Kaylynn Walker [employer] SURVEYING 07/12/2013 Office visit Kaylynn Andrea [employer] SURVEYING 06/28/2013 Nurse visit Kaylynn Walker [employer]VEYING 06/14/2013 Nurse visit Kaylynn Mendez [employer]VEYING 06/08/2013 Nurse visit Kaylynn Walker [employer]VEYING 05/31/2013 Nurse visit Chadd Norris DO 05/18/2013 Office visit Terese Davidson MD 05/16/2013 Office visit Kaylynn Mendez [employer]VEYING 05/09/2013 Office visit Kaylynn Mendez [employer] SURVEYING 04/29/2013 [facility] John Hoskins MD 04/25/2013 Nurse visit Kaylynn Walker [employer]VEYING 04/17/2013 Office visit Kaylynn Walker [employer] SURVEYING 04/03/2013 Nurse visit Kaylynn Mendez [employer] SURVEYING 04/03/2013 Office visit Terese Davidson MD 03/28/2013 Office visit Sundeep Russell [employer]VEYING 03/21/2013 Office visit Kaylynn Mendez [employer] SURVEYING 03/20/2013 Office visit Terese Davidson MD 03/14/2013 Nurse visit Kaylynn Mendez [employer]VEYING 03/05/2013 Nurse visit Kaylynn Walker [employer]VEYING 02/19/2013 Office visit Terese Davidson MD 02/16/2013 Nurse visit Kaylynn Walker [employer]VEYING 02/09/2013 Office visit Sundeep Russell [employer]VEYING 02/08/2013 Nurse visit Kaylynn Walker [employer] SURVEYING 02/01/2013 Nurse visit Kaylynn Walker [employer]VEYING 01/26/2013 Nurse visit Sabrina Andrea NUTRITION AND DIETETICS INSTRUCTOR 01/25/2013 Office visit Kaylynn Andrea [employer]VEYING 01/22/2013 Office visit Yoan Castaneda MD 01/18/2013 Nurse visit Kaylynn Walker [employer]VEYING 01/11/2013 Nurse visit Kaylynn Walker [employer]VEYING 01/05/2013 Nurse visit Kaylynn Walker [employer]VEYING 12/29/2012 Office visit Kaylynn Walker [employer]VEYING 11/27/2012 Office visit Kaylynn Mendez [employer]VEYING 11/08/2012 Office visit Odell Tierney MD 11/08/2012 Voided Odell Tierney MD 11/07/2012 Office visit Kaylynn Mendez [employer] 10/31/2012 [facility] John Hoskins MD 10/31/2012 Office visit Kaylynn Mendez [employer]YING 10/19/2012 Office visit Genoveva Ayala [employer] SURVEYING 10/10/2012 Office visit Kaylynn Mendez [employer] SURVEYING 10/03/2012 Office visit Kaylynn Mendez [employer]VEYING 09/26/2012 Office visit Kaylynn Mendez [employer]VEYING 09/06/2012 Office visit Kaylynn Mendez [employer]VEYING 09/06/2012 Office visit Odell Tierney MD 08/31/2012 Voided Kaylynn Mendez [employer] 07/28/2012 Office visit Kaylynn Mendez [employer] 07/27/2012 Office visit David Joyner DO 07/20/2012 [facility] David Joyner DO 07/13/2012 [facility] David Joyner DO 07/11/2012 Office visit Kaylynn Mendez [employer]YING 06/27/2012 [facility] Odell Tierney MD 06/21/2012 Office visit David Joyner DO 06/21/2012 Office visit Odell Tierney MD 06/20/2012 Office visit Brittni Yanez [employer]VEYING 06/06/2012 Office visit Odell Tierney MD 05/03/2012 Office visit Kaylynn Mendez [employer]VEYING 04/28/2012 Office visit Brittni Yanez [employer] SURVEYING 04/11/2012 Office visit Kaylynn Mendez [employer] SURVEYING 04/06/2012 [facility] John Hoskins MD 03/30/2012 Office visit Kaylynn Mendez [employer]VEYING 03/15/2012 Office visit Kaylynn Mendez [employer] SURVEYING 03/15/2012 Office visit Odell Tierney MD 02/09/2012 Office visit Kaylynn Mendez [employer]VEYING 12/23/2011 Office visit Kaylynn Mendez [employer]VEYING 11/02/2011 Office visit Kaylynn Mendez [employer] SURVEYING 10/14/2011 Office visit Kaylynn Mendez [employer]VEYING 09/27/2011 Office visit Kaylynn Mendez [employer]VEYING 08/19/2011 [facility] Hos[facility] MD 08/18/2011 Hospital John Hoskins MD 08/18/2011 Office visit Kaylynn Mendez [employer] SURVEYING 08/02/2011 Office visit Kaylynn Mendez [employer] SURVEYING 07/08/2011 Office visit Kaylynn Mendez [employer] CLE[employer] SURVEYING 07/05/2011 Office visit Odell Tierney MD 06/15/2011 Office visit Kaylynn Mendez [employer]VEYING 05/14/2011 Office visit Kaylynn Andrea [employer]VEYING 05/11/2011 Office visit Odell Tierney MD 04/28/2011 Office visit Kaylynn Mendez [employer]YING 03/02/2011 Office visit Chadd Norris DO 02/17/2011 [...]
--- OUTSIDE RECORDS SUMMARY | 2018-05-09 18:44 | XMS REPORT ---
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 Name Start Date Expiration Date SIG Comments [...] 08/27/2014 use as directed for 99 days Imler 5-325 mg oral tablet 06/17/2014 06/27/2014 take [...] a day as needed for 30 days mjgxesvw-aqsaoechv-QW 3.5-10,000-1 mg/mL-unit/mL-% otic drops,suspension 201401/08/2015 instill 4 [...] Ok for similiar substitution or individual components. lcadsebk-uptnsdwmn-IO 3.5-10,000-1 mg/mL-unit/mL-% otic drops,suspension 201607/23/2016 instill 4 [...] Reviewed 04/28/2011 12:00 AM Decadron 1 mg ND#[id number] (Jr) Reviewed 04/28/2011 12:00 AM Depo-Medrol 80 mg ND#[id number]-Itxngznz Reviewed 09/02/2015 12:00 AM Toradol 60 Mg NDC#8466-9732-84 Reviewed 09/02/2015 12:00 AM Phenergan, Up to 50 Mg RHC Medicaid Reviewed 09/16/2015 12:00 AM Toradol 60 Mg ND#7735-8546-81 Reviewed 09/16/2015 12:00 AM Phenergan Up to 50 mg RHC Medicare Reviewed 05/11/2011 12:00 AM N BLOCK INJ OCCIPITAL Reviewed 05/11/2011 12:00 AM Kenalog Co-[address]-20 ANNA Reviewed 11/13/2015 12:00 AM ASSAY OF [...] INJ SC/IM Reviewed 07/08/2011 12:00 AM Toradol,15mg [facility]#[id number], [place] Reviewed 07/08/2011 12:00 AM Phenergan 50 Mg Im [facility] [id number] [place] Reviewed 01/21/2016 12:00 AM ECG MONIT/REPRT UP TO 48 HRS Returned 08/02/2011 12:00 AM THER/PROPH/DIAG INJ SC/IM Reviewed 08/02/2011 12:00 AM Decadron 1 mg [facility]#[id number] (Jr) Reviewed 08/02/2011 12:00 AM Depo-Medrol 80 mg [facility]#[id number]-Hekagytd Reviewed 03/05/2016 12:00 AM COMPLETE CBC W/AUTO DIFF WBC Reviewed 03/05/2016 12:00 AM STREP A ASSAY W/OPTIC Reviewed 03/05/2016 12:00 AM C-REACTIVE PROTEIN Reviewed 03/18/2016 12:00 AM [facility] MEDICARE - flu vaccine administration [...] Reviewed 09/27/2011 12:00 AM Depo-Medrol 80 mg [facility]#[id number]-Bohgrezw Reviewed 09/27/2011 12:00 AM Depo-Medrol 40 mg NDC#[id number] Reviewed 07/06/2016 12:00 AM CHEST X-RAY 4/> [...] Reviewed 12/23/2011 12:00 AM Decadron 1 mg NDC#[id number] (Jr) Reviewed 12/23/2011 12:00 AM Depo-Medrol 80 mg NDC#[id number]-Ozwantan Reviewed 11/02/2016 11:45 AM URINALYSIS AUTO W/O SCOPE Reviewed 02/09/2012 12:00 AM THER/PROPH/DIAG INJ SC/IM Reviewed 02/09/2012 12:00 AM Decadron 1 mg NDC#[id number] (Jr) Reviewed 02/09/2012 12:00 AM Depo-Medrol 80 mg NDC#[id number]-Nrsiizrn Reviewed 03/15/2012 12:00 AM N BLOCK INJ OCCIPITAL Reviewed 03/15/2012 12:00 AM Kenalog Aj-[address]-20 ANNA Reviewed 04/11/2012 12:00 AM COMPLETE CBC W/AUTO DIFF WBC Reviewed 04/11/2012 12:00 AM COMPREHEN METABOLIC PANEL Reviewed 04/11/2012 12:00 AM LIPID PANEL Reviewed 04/11/2012 12:00 AM ASSAY THYROID STIM HORMONE Reviewed 04/11/2012 12:00 AM DESTRUCT PREMALG LES 2-14 Reviewed 06/20/2012 12:00 AM THER/PROPH/DIAG INJ SC/IM Reviewed 06/20/2012 12:00 AM Decadron, Per 1 Mg ND# [address]-22 Reviewed 06/20/2012 12:00 AM Depo-Medrol, Per 80 Mg ND#7823-5323-24 Reviewed 09/06/2012 12:00 AM N BLOCK INJ OCCIPITAL Reviewed 09/06/2012 12:00 AM Kenalog Sw-[address]-20 ANNA Reviewed 09/06/2012 12:00 AM X-RAY EXAM RIBS UNI 2 VIEWS Reviewed 09/26/2012 12:00 AM THER/PROPH/DIAG INJ SC/IM Reviewed 09/26/2012 12:00 AM Decadron, Per 1 Mg ND# [address]-86 Reviewed 09/26/2012 12:00 AM Depo-Medrol, Per 80 Mg ND#2266-5337-93 Reviewed 10/03/2012 12:00 AM URINALYSIS AUTO W/O SCOPE Reviewed 10/03/2012 12:00 AM THER/PROPH/DIAG INJ SC/IM Reviewed 10/03/2012 12:00 AM Toradol 60 Mg ND#9311-8014-56 Reviewed 10/03/2012 12:00 AM Phenergan, 25Mg ND#8486-8124-59 Reviewed 10/19/2012 12:00 AM N BLOCK INJ OCCIPITAL Reviewed 10/19/2012 12:00 AM Kenalog, Per 10 Mg ND#9712-3957-67 Reviewed 10/19/2012 12:00 AM Toradol 30 Mg ND#2089-1059-21 Reviewed 10/19/2012 12:00 AM THER/PROPH/DIAG INJ SC/IM Reviewed 10/31/2012 12:00 AM COMPLETE CBC W/AUTO DIFF WBC Reviewed 10/31/2012 12:00 AM COMPREHEN METABOLIC PANEL Reviewed 10/31/2012 12:00 AM LIPID PANEL Reviewed 10/31/2012 12:00 AM ELECTROCARDIOGRAM COMPLETE Reviewed 11/03/2012 12:[address] THORAX W/O & W/DYE Reviewed 11/08/2012 12:00 AM N BLOCK INJ OCCIPITAL Reviewed 11/08/2012 12:00 AM Kenalog Ue-[address]-20 ANNA Reviewed 11/27/2012 12:00 AM COMPLETE CBC [...] 01/25/2013 12:00 AM Decadron, Per 1 Mg [facility]# [address]-54 Reviewed 01/25/2013 12:00 AM Depo-Medrol, Per 80 Mg [facility]#6932-9643-70 Reviewed 01/26/2013 12:00 AM IMMUNOTHERAPY ONE INJECTION [...] 05/16/2013 12:00 AM Decadron, Per 1 Mg [facility]# [address]-77 Reviewed 05/16/2013 12:00 AM Depo-Medrol, Per 80 Mg [facility]#1274-9561-17 Reviewed 05/31/2013 12:00 AM IMMUNOTHERAPY INJECTIONS Reviewed 06/08/2013 12:00 AM IMMUNOTHERAPY INJECTIONS Reviewed 06/14/2013 12:00 AM IMMUNOTHERAPY INJECTIONS Reviewed 06/28/2013 12:00 AM IMMUNOTHERAPY INJECTIONS Reviewed 07/12/2013 12:00 AM X-RAY EXAM RIBS UNI 2 VIEWS Reviewed 07/18/2013 12:00 AM Toradol 60 Mg [facility]#5594-1379-62 Reviewed 07/18/2013 12:00 AM THER/PROPH/DIAG INJ SC/IM Reviewed 08/23/2013 12:00 AM COMPLETE CBC W/AUTO DIFF WBC Reviewed 08/23/2013 12:00 AM COMPREHEN METABOLIC PANEL Reviewed 08/23/2013 12:00 AM LIPID PANEL Reviewed 08/31/2013 12:00 AM X-RAY EXAM OF LOWER LEG Reviewed 09/04/2013 12:00 AM IMMUNOTHERAPY INJECTIONS Reviewed 09/14/2013 12:00 AM THER/PROPH/DIAG INJ SC/IM Reviewed 09/14/2013 12:00 AM Decadron, Per 1 Mg [facility]# [address]-02 Reviewed 09/14/2013 12:00 AM Depo-Medrol, Per 80 Mg [facility]#6464-2584-99 Reviewed 09/20/2013 12:00 AM IMMUNOTHERAPY INJECTIONS Reviewed [...] INJ OCCIPITAL Reviewed 12/10/2009 12:00 AM Kenalog Pg-[address]-20 ANNA Reviewed 12/16/2009 12:00 AM HIV-1ANTIBODY Reviewed 12/16/2009 12:00 AM COMPLETE CBC W/AUTO DIFF WBC Reviewed 12/16/2009 12:00 AM METABOLIC PANEL TOTAL CA Reviewed 12/16/2009 12:00 AM Type and screen Reviewed 12/16/2009 12:00 AM PROTHROMBIN TIME Reviewed 12/16/2009 12:00 AM THROMBOPLASTIN TIME PARTIAL Reviewed 03/18/2010 12:00 AM DRAIN/INJ JOINT/BURSA W/O US Reviewed 03/18/2010 12:00 AM Kenalog Av-[address]-20 ANNA Reviewed 11/21/2013 12:00 AM RADEX HAND MINIMUM 3 VIEWS Reviewed 06/03/2010 12:00 AM INJ TRIGGER POINT 1/2 MUSCL Reviewed 06/03/2010 12:00 AM Kenalog per 10Mg Im-Nd#[address]-73(Niall) Reviewed 12/05/2013 12:00 AM COMPLETE CBC W/AUTO [...] 07/23/2010 12:00 AM Kenalog per 10Mg Im-[facility]#[address]-56(Niall) Reviewed 2014 12:00 AM COMPLETE CBC W/AUTO [...] INJ OCCIPITAL Reviewed 10/01/2010 12:00 AM Kenalog Rr-[address]-20 ANNA Reviewed 07/25/2014 12:00 AM THER/PROPH/DIAG INJ [...] 141 Influenza 04/24/2014 sanofi pasteur PMC Fluzone [id number] Intramuscular Left Upper Arm 02/27/2014 01/15/2014 141 Influenza 02/13/2015 sanofi pasteur PMC Fluzone [id number] Intramuscular Left Deltoid 02/13/2015 01/03/2015 140 Tdap 06/06/2015 [employer] SKB BOOSTRIX [id number] Intramuscular Left Deltoid 06/06/2015 07/23/2014 115 Influenza 03/18/2016 sanofi pasteur PMC Fluzone [id number] Intramuscular Left Deltoid 03/17/2016 01/03/2015 141 History [...] of cervical region Nov 05 2016 3:20PM Payers Insurance Name Company Name Plan Name Plan Number Policy Number Policy Group Number Start Date Medicare RHC Medicare RHC [id number] N/A [facility] RHC Comm [id number] N/A Medicare Part A Medicare - Lab/Xray [id number] N/A Medicare Part B Medicare Of [place] [id number] Monday, February 28, 2000 [place] [employer] [facility] [place] [employer] [id number] Tuesday, November 10, 2009 Medicare Part A Medicare Part A [id number] N/A [place] [employer] [place] [employer] - RHC [id number] May [facility] Comm Plan of [id number] Wednesday, May 30, 2012 History of Encounters Visit Date Visit Type Provider 11/05/2016 Office visit Riccardo Cardoza MD 11/02/2016 Office visit Heena Dumont MD 10/06/2016 Office visit Kaylynn Mendez CALENDER RUNNER 09/22/2016 Office visit Heena Dumont MD 09/09/2016 Office visit Kaylynn Mendez CALENDER RUNNER 08/27/2016 Office visit Riccardo Cardoza MD 08/26/2016 Office visit Heena Dumont MD 07/09/2016 Office visit Riccardo Cardoza MD 07/06/2016 Office visit Heena Dumont MD 06/18/2016 Office visit Kaylynn Mendez APRN 06/07/2016 Office visit Sundeep Russell APRN 06/04/2016 Office visit Heena Dumont MD 05/13/2016 Office visit Heena Dumont MD 05/03/2016 Office visit Heena Dumont MD 04/26/2016 Office visit Kaylynn Mendez CALENDER RUNNER 04/14/2016 Office visit Heena Dumont MD 04/13/2016 Office visit Kaylynn Mendez CALENDER RUNNER 04/02/2016 Office visit Lena El CALENDER RUNNER 04/02/2016 Office visit Heena Dumont MD 03/26/2016 Office visit Yesica Falcon CALENDER RUNNER 03/17/2016 Office visit Heena Dumont MD 03/05/2016 Office visit Kaylynn Mendez CALENDER RUNNER 02/16/2016 Office visit Heena Dumont MD 02/14/2016 Office visit Na Jones CALENDER RUNNER 01/16/2016 Office visit Heena Dumont MD 12/16/2015 Office visit Heena Dumont MD 11/24/2015 Office visit Kaylynn Mendez CALENDER RUNNER 11/18/2015 Office visit Heena Dumont MD 11/03/2015 Office visit Sundeep Russell CALENDER RUNNER 10/20/2015 Office visit Kaylynn Mendez CALENDER RUNNER 09/23/2015 Office visit Kaylynn Mendze CALENDER RUNNER 09/16/[address] Pepe Figueroa MD 09/02/2015 Office visit Kaylynn Mendez CALENDER RUNNER 09/01/2015 Office visit Kaylynn Mendez CALENDER RUNNER 07/30/2015 Office visit Heena Dumont MD 07/15/2015 Office visit Kaylynn Mendez CALENDER RUNNER 07/04/2015 Office visit Heena Dumont MD 06/06/2015 Office visit Heena Dumont MD 06/06/2015 Office visit Kaylynn Mendez CALENDER RUNNER 06/02/2015 Office visit Kaylynn Mendez CALENDER RUNNER 05/26/2015 Office visit Kaylynn Mendez CALENDER RUNNER 05/20/2015 Office visit Kaylynn Mendez CALENDER RUNNER 05/08/2015 Office visit Heena Dumont MD 05/06/2015 Office visit Kaylynn Mendez CALENDER RUNNER 04/29/2015 Office visit Kaylynn Mendez CALENDER RUNNER 03/27/2015 Voided Brittni Yanez CALENDER RUNNER 03/21/2015 Office visit Heena Dumont MD 03/12/2015 Office visit Kaylynn Mendez CALENDER RUNNER 02/26/2015 Office visit Brittni Yanez CALENDER RUNNER 02/13/2015 Office visit Heena Dumont MD 01/15/2015 Office visit Brittni Yanez CALENDER RUNNER 01/13/2015 Office visit Heena Dumont MD 01/08/[address] Carol Fowler MD 01/01/2015 Office visit Brittni Yanez CALENDER RUNNER 12/13/2014 Office visit Heena Dumont MD 11/27/2014 Office visit Kaylynn Mendez CALENDER RUNNER 11/14/2014 Office visit Heena Dumont MD 10/18/2014 Office visit Heena Dumont MD 10/17/2014 [facility] John Hoskins MD 10/09/2014 Office visit Heena Dumont MD 09/25/2014 Office visit Heena Dumont MD 09/17/2014 Office visit Kaylynn Mendez CALENDER RUNNER 09/04/2014 Office visit Heena Dumont MD 08/28/2014 Office visit Kaylynn Mendez CALENDER RUNNER 08/23/2014 [facility] John Hoskins MD 08/01/2014 Office visit Kaylynn Mendez CALENDER RUNNER 07/29/2014 Office visit Heena Dumont MD 07/25/2014 Nurse visit Heena Dumont MD 07/17/2014 Office visit Kaylynn Mendez CALENDER RUNNER 07/11/2014 Office visit Heena Dumont MD 07/01/2014 Office visit Heena Dumont MD 06/25/2014 Office visit Kaylynn Mendez CALENDER RUNNER 06/12/2014 Office visit Kaylynn Mendez CALENDER RUNNER 06/06/2014 Office visit Kaylynn Mendez CALENDER RUNNER 05/27/2014 Office visit Heena Dumont MD 04/20/2014 Office visit Yesica Falcon CALENDER RUNNER 03/29/2014 Office visit Na Jones CALENDER RUNNER 03/15/2014 Office visit Heena Dumont MD 2014 Office visit Heena Dumont MD 2014 [facility] John Hoskins MD 02/27/2014 Nurse visit Heena Dumont MD 02/13/2014 Office visit Lena El CALENDER RUNNER 02/07/2014 Office visit Heena Dumont MD 02/03/2014 Office visit Na Jones CALENDER RUNNER 01/30/2014 Office visit Kaylynn Mendez CALENDER RUNNER 01/24/2014 Office visit Sundeep Russell CALENDER RUNNER 01/16/2014 Office visit Kaylynn Mendez CALENDER RUNNER 01/10/2014 Nurse visit Kaylynn Mendez CALENDER RUNNER 01/08/2014 Office visit Kaylynn Mendez CALENDER RUNNER 12/05/2013 Office visit Kaylynn Walker CALENDER RUNNER 11/21/2013 Office visit Kaylynn Mendez CALENDER RUNNER 10/23/2013 Office visit Brittni Yanez CALENDER RUNNER 10/17/2013 Nurse visit Heena Dumont MD 10/12/2013 Office visit Kaylynn Mendez CALENDER RUNNER 10/02/2013 Office visit Heena Dumont MD 09/20/2013 Nurse visit Kaylynn Mendez CALENDER RUNNER 09/20/2013 Voided Heena Dumont MD 09/14/2013 Office visit Kaylynn Walker CALENDER RUNNER 09/05/2013 Office visit Sundeep Russell CALENDER RUNNER 09/04/2013 Nurse visit Kaylynn Walker CALENDER RUNNER 08/31/2013 Office visit Kaylynn Walker CALENDER RUNNER 08/23/2013 Office visit Heena Dumont MD 08/10/2013 Office visit Kaylynn Walker CALENDER RUNNER 07/25/2013 Office visit Kaylynn Walker CALENDER RUNNER 07/18/2013 Office visit Kaylynn Walker CALENDER RUNNER 07/12/2013 Office visit Kaylynn Walker CALENDER RUNNER 06/28/2013 Nurse visit Kaylynn Walker CALENDER RUNNER 06/14/2013 Nurse visit Kaylynn Walker CALENDER RUNNER 06/08/2013 Nurse visit Kaylynn Walker CALENDER RUNNER 05/31/2013 Nurse visit Chadd Norris DO 05/18/2013 Office visit Terese Davidson MD 05/16/2013 Office visit Kaylynn Walker CALENDER RUNNER 05/09/2013 Office visit Kaylynn Walker CALENDER RUNNER 04/29/2013 [facility] John Hoskins MD 04/25/2013 Nurse visit Kaylynn Walker CALENDER RUNNER 04/17/2013 Office visit Kaylynn Walker CALENDER RUNNER 04/03/2013 Nurse visit Kaylynn Walker CALENDER RUNNER 04/03/2013 Office visit Terese Davidson MD 03/28/2013 Office visit Sundeep Russell CALENDER RUNNER 03/21/2013 Office visit Kaylynn Mendez CALENDER RUNNER 03/20/2013 Office visit Terese Davidson MD 03/14/2013 Nurse visit Kaylynn Walker CALENDER RUNNER 03/05/2013 Nurse visit Kaylynn Mendez CALENDER RUNNER 02/19/2013 Office visit Terese Davidson MD 02/16/2013 Nurse visit Kaylynn Mendez CALENDER RUNNER 02/09/2013 Office visit Sundeep Russell CALENDER RUNNER 02/08/2013 Nurse visit Kaylynn Walker CALENDER RUNNER 02/01/2013 Nurse visit Kaylynn Walker CALENDER RUNNER 01/26/2013 Nurse visit Sabrina Mendez [employer] 01/25/2013 Office visit Kaylynn Walker CALENDER RUNNER 01/22/2013 Office visit Yoan Castaneda MD 01/18/2013 Nurse visit Kaylynn Walker CALENDER RUNNER 01/11/2013 Nurse visit Kaylynn Walker CALENDER RUNNER 01/05/2013 Nurse visit Kaylynn Walker CALENDER RUNNER 12/29/2012 Office visit Kaylynn Walker CALENDER RUNNER 11/27/2012 Office visit Kaylynn Walker CALENDER RUNNER 11/08/2012 Office visit Odell Tierney MD 11/08/2012 Voided Odell Tierney MD 11/07/2012 Office visit Kaylynn Mendez CALENDER RUNNER 10/31/2012 [facility] John Hoskins MD 10/31/2012 Office visit Kaylynn Mendez CALENDER RUNNER 10/19/2012 Office visit Genoveva Ayala CALENDER RUNNER 10/10/2012 Office visit Kaylynn Mendez CALENDER RUNNER 10/03/2012 Office visit Kaylynn Walker CALENDER RUNNER 09/26/2012 Office visit Kaylynn Mendez CALENDER RUNNER 09/06/2012 Office visit Kaylynn Walker CALENDER RUNNER 09/06/2012 Office visit Odell Tierney MD 08/31/2012 Voided Kaylynn Mendez CALENDER RUNNER 07/28/2012 Office visit Kaylynn Mendez CALENDER RUNNER 07/27/2012 Office visit David Joyner DO 07/20/2012 Hospital David Joyner DO 07/13/2012 [facility] David Joyner DO 07/11/2012 Office visit Kaylynn Mendez CALENDER RUNNER 06/27/2012 Hospital Odell Tierney MD 06/21/2012 Office visit David Joyner DO 06/21/2012 Office visit Odell Tierney MD 06/20/2012 Office visit Brittni Yanez CALENDER RUNNER 06/06/2012 Office visit Odell Tierney MD 05/03/2012 Office visit Kaylynn Mendez CALENDER RUNNER 04/28/2012 Office visit Brittni Yanez CALENDER RUNNER 04/11/2012 Office visit Kaylynn Mendez CALENDER RUNNER 04/06/2012 [facility] John Hoskins MD 03/30/2012 Office visit Kaylynn Mendez CALENDER RUNNER 03/15/2012 Office visit Kaylynn Mendez CALENDER RUNNER 03/15/2012 Office visit Odell Tierney MD 02/09/2012 Office visit Kaylynn Mendez CALENDER RUNNER 12/23/2011 Office visit Kaylynn Mendez CALENDER RUNNER 11/02/2011 Office visit Kaylynn Mendez CALENDER RUNNER 10/14/2011 Office visit Kaylynn Mendez CALENDER RUNNER 09/27/2011 Office visit Kaylynn Mendez CALENDER RUNNER 08/19/2011 Hospital John Hoskins MD 08/18/2011 [facility] John Hoskins MD 08/18/2011 Office visit Kaylynn Mendez CALENDER RUNNER 08/02/2011 Office visit Kaylynn Mendez CALENDER RUNNER 07/08/2011 Office visit Kaylynn Mendez CALENDER RUNNER 07/05/2011 Office visit Odell Tierney MD 06/15/2011 Office visit Kaylynn Mendez CALENDER RUNNER 05/14/2011 Office visit Kaylynn Mendez CALENDER RUNNER 05/11/2011 Office visit Odell Tierney MD 04/28/2011 Office visit Kaylynn Mendez CALENDER RUNNER 03/02/2011 Office visit Chadd Norris DO 02/17/2011 [...]
--- OUTSIDE RECORDS SUMMARY | 2018-05-09 18:48 | XMS REPORT ---
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 [employer] Lancets 33 gauge miscellaneous misc 01/21/2016 use as directed [facility] miscellaneous strip 01/21/2016 07/19/2016 Test 2x daily, [...] route every 8 hours for 30 days omeprazole 20 mg oral capsule,delayed release(DR/EC) 03/19/2016 TAKE 1 CAPSULE (20 MG) BY ORAL ROUTE ONCE DAILY BEFORE A MEAL FOR 30 DAYS Name Start Date Expiration [...] 08/27/2014 use as directed for 99 days [place] 5-325 mg oral tablet 06/17/2014 06/27/2014 take [...] a day as needed for 30 days umoxeyoe-uvhvqxrok-RN 3.5-10,000-1 mg/mL-unit/mL-% otic drops,suspension 201401/08/2015 instill 4 [...] HC BMI BSA BMI Percentile O2 Sat(%) 03/26/2016 5:23:00 PM 134 mmHg 72 mmHg [...] Reviewed 04/28/2011 12:00 AM Decadron 1 mg [facility]#42693129903 (Jr) Reviewed 04/28/2011 12:00 AM Depo-Medrol 80 mg ND#[id number]-Oobajubz Reviewed 09/02/2015 12:00 AM Toradol 60 Mg [facility]#7449-5435-54 Reviewed 09/02/2015 12:00 AM Phenergan, Up to 50 Mg [facility] Medicaid Reviewed 09/16/2015 12:00 AM Toradol 60 Mg ND#0305-0235-93 Reviewed 09/16/2015 12:00 AM Phenergan Up to 50 mg [facility] Medicare Reviewed 05/11/2011 12:00 AM N BLOCK INJ OCCIPITAL Reviewed 05/11/2011 12:00 AM Kenalog Vq-[id number] ANNA Reviewed 11/13/2015 12:00 AM ASSAY OF [...] INJ SC/IM Reviewed 07/08/2011 12:00 AM Toradol,15mg ND#[id number], [place] Reviewed 07/08/2011 12:00 AM Phenergan 50 Mg Im [facility] [id number] [facility] Reviewed 01/21/2016 12:00 AM ECG MONIT/REPRT UP TO 48 HRS Returned 08/02/2011 12:00 AM THER/PROPH/DIAG INJ SC/IM Reviewed 08/02/2011 12:00 AM Decadron 1 mg NDC#[id number] (Jr) Reviewed 08/02/2011 12:00 AM Depo-Medrol 80 mg ND#[id number]-Pkfaxwbs Reviewed 03/05/2016 12:00 AM COMPLETE CBC W/AUTO DIFF WBC Returned 03/05/2016 12:00 AM STREP A ASSAY W/OPTIC Returned 03/05/2016 12:00 AM C-REACTIVE PROTEIN Returned 03/18/2016 12:00 AM [facility] MEDICARE - flu vaccine administration Reviewed 03/18/2016 12:00 AM INFLUENZA VACCINE QUADRIVALENT 3 YRS PLUS IM Reviewed 09/27/2011 12:00 AM THER/PROPH/DIAG INJ SC/IM Reviewed 09/27/2011 12:00 AM Depo-Medrol 80 mg NDC#[id number]-Siwqguau Reviewed 10/14/2011 12:00 AM X-RAY EXAM OF ABDOMEN Returned 10/14/2011 12:00 AM URINALYSIS AUTO W/O SCOPE Reviewed 12/23/2011 12:00 AM THER/PROPH/DIAG INJ SC/IM Reviewed 12/23/2011 12:00 AM Decadron 1 mg NDC#[id number] (Jr) Reviewed 12/23/2011 12:00 AM Depo-Medrol 80 mg NDC#[id number]-Eyhbqqlb Reviewed 02/09/2012 12:00 AM THER/PROPH/DIAG INJ SC/IM Reviewed 02/09/2012 12:00 AM Decadron 1 mg NDC#[id number] (Jr) Reviewed 02/09/2012 12:00 AM Depo-Medrol 80 mg NDC#[id number]-Ynbzmhan Reviewed 03/15/2012 12:00 AM N BLOCK INJ OCCIPITAL Reviewed 03/15/2012 12:00 AM Kenalog Rl-[id number] ANNA Reviewed 04/11/2012 12:00 AM COMPLETE CBC W/AUTO DIFF WBC Returned 04/11/2012 12:00 AM COMPREHEN METABOLIC PANEL Returned 04/11/2012 12:00 AM LIPID PANEL Returned 04/11/2012 12:00 AM ASSAY THYROID STIM HORMONE Returned 06/20/2012 12:00 AM THER/PROPH/DIAG INJ SC/IM Reviewed 06/20/2012 12:00 AM Decadron, Per 1 Mg [facility]# [address]-84 Reviewed 06/20/2012 12:00 AM Depo-Medrol, Per 80 Mg ND#3570-6228-15 Reviewed 09/06/2012 12:00 AM N BLOCK INJ OCCIPITAL Reviewed 09/06/2012 12:00 AM Kenalog Kg-[id number] ANNA Reviewed 09/06/2012 12:00 AM X-RAY EXAM RIBS UNI 2 VIEWS Returned 09/26/2012 12:00 AM THER/PROPH/DIAG INJ SC/IM Reviewed 09/26/2012 12:00 AM Decadron, Per 1 Mg [facility]# [address]-43 Reviewed 09/26/2012 12:00 AM Depo-Medrol, Per 80 Mg [facility]#3476-2747-39 Reviewed 10/03/2012 12:00 AM URINALYSIS AUTO W/O SCOPE Reviewed 10/03/2012 12:00 AM THER/PROPH/DIAG INJ SC/IM Reviewed 10/03/2012 12:00 AM Toradol 60 Mg [facility]#1581-8075-17 Reviewed 10/03/2012 12:00 AM Phenergan, 25Mg [facility]#8191-3190-22 Reviewed 10/19/2012 12:00 AM N BLOCK INJ OCCIPITAL Reviewed 10/19/2012 12:00 AM Kenalog, Per 10 Mg [facility]#8293-1146-41 Reviewed 10/19/2012 12:00 AM Toradol 30 Mg [facility]#3985-3667-78 Reviewed 10/19/2012 12:00 AM THER/PROPH/DIAG INJ SC/IM Reviewed 10/31/2012 12:00 AM COMPLETE CBC W/AUTO DIFF WBC Returned 10/31/2012 12:00 AM COMPREHEN METABOLIC PANEL Returned 10/31/2012 12:00 AM LIPID PANEL Returned 11/03/2012 12:[address] THORAX W/O & W/DYE Returned 11/08/2012 12:00 AM N BLOCK INJ OCCIPITAL Reviewed 11/08/2012 12:00 AM Kenalog Uu-[id number] ANNA Reviewed 11/27/2012 12:00 AM COMPLETE CBC [...] 01/25/2013 12:00 AM Decadron, Per 1 Mg [facility]# [address]-75 Reviewed 01/25/2013 12:00 AM Depo-Medrol, Per 80 Mg [facility]#6188-4944-22 Reviewed 01/26/2013 12:00 AM IMMUNOTHERAPY INJECTIONS Returned [...] 05/16/2013 12:00 AM Decadron, Per 1 Mg [facility]# [address]-86 Reviewed 05/16/2013 12:00 AM Depo-Medrol, Per 80 Mg [facility]#0826-3541-00 Reviewed 05/31/2013 12:00 AM IMMUNOTHERAPY INJECTIONS Reviewed 06/08/2013 12:00 AM IMMUNOTHERAPY INJECTIONS Reviewed 06/14/2013 12:00 AM IMMUNOTHERAPY INJECTIONS Reviewed 06/28/2013 12:00 AM IMMUNOTHERAPY INJECTIONS Reviewed 07/12/2013 12:00 AM X-RAY EXAM RIBS UNI 2 VIEWS Returned 07/18/2013 12:00 AM Toradol 60 Mg [facility]#1039-9690-79 Reviewed 07/18/2013 12:00 AM THER/PROPH/DIAG INJ SC/IM Reviewed 08/23/2013 12:00 AM COMPLETE CBC W/AUTO DIFF WBC Reviewed 08/23/2013 12:00 AM COMPREHEN METABOLIC PANEL Reviewed 08/23/2013 12:00 AM LIPID PANEL Reviewed 08/31/2013 12:00 AM X-RAY EXAM OF LOWER LEG Returned 09/04/2013 12:00 AM IMMUNOTHERAPY INJECTIONS Reviewed 09/14/2013 12:00 AM THER/PROPH/DIAG INJ SC/IM Reviewed 09/14/2013 12:00 AM Decadron, Per 1 Mg [facility]# [address]-97 Reviewed 09/14/2013 12:00 AM Depo-Medrol, Per 80 Mg [facility]#3637-7299-37 Reviewed 09/20/2013 12:00 AM IMMUNOTHERAPY INJECTIONS Reviewed [...] INJ OCCIPITAL Reviewed 12/10/2009 12:00 AM Kenalog Rk-[id number] ANNA Reviewed 12/16/2009 12:00 AM HIV-1ANTIBODY Reviewed 12/16/2009 12:00 AM COMPLETE CBC W/AUTO DIFF WBC Reviewed 12/16/2009 12:00 AM METABOLIC PANEL TOTAL CA Reviewed 12/16/2009 12:00 AM Type and screen Reviewed 12/16/2009 12:00 AM PROTHROMBIN TIME Reviewed 12/16/2009 12:00 AM THROMBOPLASTIN TIME PARTIAL Reviewed 03/18/2010 12:00 AM DRAIN/INJ JOINT/BURSA W/O US Reviewed 03/18/2010 12:00 AM Kenalog Ea-[address]-20 ANNA Reviewed 11/21/2013 12:00 AM RADEX HAND MINIMUM 3 VIEWS Returned 06/03/2010 12:00 AM INJ TRIGGER POINT 1/2 MUSCL Reviewed 06/03/2010 12:00 AM Kenalog per 10Mg Im-Ndc#[address]-69(Niall) Reviewed 12/05/2013 12:00 AM COMPLETE CBC W/AUTO [...] Reviewed 07/23/2010 12:00 AM Kenalog per 10Mg Im-Ndc#[address]-32(Niall) Reviewed 2014 12:00 AM COMPLETE CBC W/AUTO [...] INJ OCCIPITAL Reviewed 10/01/2010 12:00 AM Kenalog Uy-[address]-20 ANNA Reviewed 07/25/2014 12:00 AM THER/PROPH/DIAG INJ [...] 0.60 mg/dLCALCIUM 10.90 mg/ dLeGFR >60 mL/min/1.73 [id number] 45.0 U/L 08/31/2013 10:54 AM GLUCOSE 255.0 [...] 0.40 mg/ dLCALCIUM 10.60 mg/dLeGFR >60 mL/min/1.73 [id number] 369.0 mg/ dLCHOLESTEROL 153.0 mg/dLHDL 26.0 mg/dLLDL [...] BILI 0.30 mg/dLCALCIUM 10.0 mg/dLeGFR >60 mL/min/1.73 [id number] YELLOW APPEARANCE CLEAR SPEC GRAV 1.010 pH 5.5 PROTEIN NEGATIVE GLUCOSE NEGATIVE KETONE NEGATIVE BILIRUBIN NEGATIVE BLOOD NEGATIVE NITRITE NEGATIVE LEUK SCREEN NEGATIVE HGB A1C 6.30 %Est Avg Glucose 134.1 mg/dLMICROALBUMIN UR <0.5 MG/DL 02/13/2015 4:38 PM RMSF, IgG, EIA Negative [facility] [...] 141 Influenza 04/24/2014 sanofi pasteur PMC Fluzone [id number] Intramuscular Left Upper Arm 02/27/2014 01/15/2014 141 Influenza 02/13/2015 sanofi pasteur PMC Fluzone [id number] Intramuscular Left Deltoid 02/13/2015 01/03/2015 140 Tdap 06/06/2015 Gl[employer]oSmith[employer]line SKB BOOSTRIX [id number] Intramuscular Left Deltoid 06/06/2015 07/23/2014 115 Influenza 03/18/2016 sanofi pasteur PMC Fluzone [id number] Intramuscular Left Deltoid 03/17/2016 01/03/2015 141 History [...] Muscle Spasm Jul 05 2011 1:58PM Headache Fe 9 2011 1:38PM Heart Sound Abnormality Fe2011 1:38PM Upper Respiratory Infections Aug 02 2011 [...] Tendon dysfunction Jul 01 2014 3:51PM Osteoporosis b 2014 3:51PM Elevated [...] 11:58AM Cough Mar 26 2016 5:25PM Seasonal allergies Mar 26 2016 5:25PM Abdominal pain Mar 26 2016 5:25PM Diverticulitis Mar 26 2016 5:25PM Atypical chest pain Mar 17 2016 10:49AM Generalized anxiety disorder Mar 17 2016 10:49AM Payers Insurance Name Company Name Plan Name Plan Number Policy Number Policy Group Number Start Date Medicare Part A Medicare [facility] [id number] N/A [facility] [id number] N/A Medicare Part A Medicare - Lab/Xray [id number] N/A Medicare Part B Medicare Of [place] [id number] Monday, February 28, 2000 [place] [employer] [place] [employer] [id number] Tuesday, November 10, 2009 Medicare Part A Medicare Part A [id number] N/A [place] [employer] - [employer] [place] [employer] - [facility] [id number] May [facility] Comm Plan of [id number] Wednesday, May 30, 2012 History of Encounters Visit Date Visit Type Provider 03/26/2016 Office visit Yesica Falcon APRN 03/17/2016 Office visit Heena Dumont MD 03/05/2016 Office visit Kaylynn Mendez MATERIAL CHECKER 02/16/2016 Office visit Heena Dumont MD 02/14/2016 Office visit Na Jones MATERIAL CHECKER 01/16/2016 Office visit Heena Dumont MD 12/16/2015 Office visit Heena Dumont MD 11/24/2015 Office visit Kaylynn Mendez MATERIAL CHECKER 11/18/2015 Office visit Heena Dumont MD 11/03/2015 Office visit Sundeep Russell MATERIAL CHECKER 10/20/2015 Office visit Kaylynn Walker MATERIAL CHECKER 09/23/2015 Office visit Kaylynn Walker MATERIAL CHECKER 09/16/[address] Pepe Figueroa MD 09/02/2015 Office visit Kaylynn Walker MATERIAL CHECKER 09/01/2015 Office visit Kaylynn Walker MATERIAL CHECKER 07/30/2015 Office visit Heena Dumont MD 07/15/2015 Office visit Kaylynn Mendez MATERIAL CHECKER 07/04/2015 Office visit Heena Dumont MD 06/06/2015 Office visit Heena Dumont MD 06/06/2015 Office visit Kaylynn Mendez MATERIAL CHECKER 06/02/2015 Office visit Kaylynn Mendez MATERIAL CHECKER 05/26/2015 Office visit Kaylynn Mendez MATERIAL CHECKER 05/20/2015 Office visit Kaylynn Mendez MATERIAL CHECKER 05/08/2015 Office visit Heena Dumont MD 05/06/2015 Office visit Kaylynn Mendez MATERIAL CHECKER 04/29/2015 Office visit Kaylynn Mendez MATERIAL CHECKER 03/27/2015 Voided Brittni Yanez MATERIAL CHECKER 03/21/2015 Office visit Heena Dumont MD 03/12/2015 Office visit Kaylynn Mendez MATERIAL CHECKER 02/26/2015 Office visit Brittni Yanez MATERIAL CHECKER 02/13/2015 Office visit Heena Dumont MD 01/15/2015 Office visit Brittni Yanez MATERIAL CHECKER 01/13/2015 Office visit Heena Dumont MD 01/08/[address] Carol Fowler MD 01/01/2015 Office visit Brittni Yanez MATERIAL CHECKER 12/13/2014 Office visit Heena Dumont MD 11/27/2014 Office visit Kaylynn Mendez MATERIAL CHECKER 11/14/2014 Office visit Heena Dumont MD 10/18/2014 Office visit Heena Dumont MD 10/17/2014 [facility] Eliseo Hoskins MD 10/09/2014 Office visit Heena Dumont MD 09/25/2014 Office visit Heena Dumont MD 09/17/2014 Office visit Kaylynn Mendez MATERIAL CHECKER 09/04/2014 Office visit Heena Dumont MD 08/28/2014 Office visit Kaylynn Mendez MATERIAL CHECKER 08/23/2014 [facility] John Hoskins MD 08/01/2014 Office visit Kaylynn Mendez MATERIAL CHECKER 07/29/2014 Office visit Heena Dumont MD 07/25/2014 Nurse visit Heena Dumont MD 07/17/2014 Office visit Kaylynn Mendez MATERIAL CHECKER 07/11/2014 Office visit Heena Dumont MD 07/01/2014 Office visit Heena Dumont MD 06/25/2014 Office visit Kaylynn Mendez MATERIAL CHECKER 06/12/2014 Office visit Kaylynn Mendez MATERIAL CHECKER 06/06/2014 Office visit Kaylynn Mendez MATERIAL CHECKER 05/27/2014 Office visit Heena Dumont MD 04/20/2014 Office visit Yesica Falcon MATERIAL CHECKER 03/29/2014 Office visit Na Jones MATERIAL CHECKER 03/15/2014 Office visit Heena Dumont MD 2014 Office visit Heena Dumont MD 2014 [facility] John Hoskins MD 02/27/2014 Nurse visit Heena Dumont MD 02/13/2014 Office visit Lena El MATERIAL CHECKER 02/07/2014 Office visit Heena Dumont MD 02/03/2014 Office visit Na Jones MATERIAL CHECKER 01/30/2014 Office visit Kaylynn Mendez MATERIAL CHECKER 01/24/2014 Office visit Sundeep Russell MATERIAL CHECKER 01/16/2014 Office visit Kaylynn Mendez MATERIAL CHECKER 01/10/2014 Nurse visit Kaylynn Mendez MATERIAL CHECKER 01/08/2014 Office visit Kaylynn Mendez MATERIAL CHECKER 12/05/2013 Office visit Kaylynn Mendez MATERIAL CHECKER 11/21/2013 Office visit Kaylynn Mendez MATERIAL CHECKER 10/23/2013 Office visit Brittni Yanez MATERIAL CHECKER 10/17/2013 Nurse visit Heena Dumont MD 10/12/2013 Office visit Kaylynn Mendez MATERIAL CHECKER 10/02/2013 Office visit Heena Dumont MD 09/20/2013 Nurse visit Kaylynn Mendez MATERIAL CHECKER 09/20/2013 Voided Heena Dumont MD 09/14/2013 Office visit Kaylynn Mendez MATERIAL CHECKER 09/05/2013 Office visit Sundeep Russell MATERIAL CHECKER 09/04/2013 Nurse visit Kaylynn Mendez MATERIAL CHECKER 08/31/2013 Office visit Kaylynn Mendez MATERIAL CHECKER 08/23/2013 Office visit Heena Dumont MD 08/10/2013 Office visit Kaylynn Mnedez MATERIAL CHECKER 07/25/2013 Office visit Kaylynn Mendez MATERIAL CHECKER 07/18/2013 Office visit Kaylynn Mendez MATERIAL CHECKER 07/12/2013 Office visit Kaylynn Walker MATERIAL CHECKER 06/28/2013 Nurse visit Kaylynn Walker MATERIAL CHECKER 06/14/2013 Nurse visit Kaylynn Walker MATERIAL CHECKER 06/08/2013 Nurse visit Kaylynn Walker MATERIAL CHECKER 05/31/2013 Nurse visit Chadd Norris DO 05/18/2013 Office visit Terese Davidson MD 05/16/2013 Office visit Kaylynn Walker MATERIAL CHECKER 05/09/2013 Office visit Kaylynn Walker MATERIAL CHECKER 04/29/2013 [facility] John Hoskins MD 04/25/2013 Nurse visit Kaylynn Walker MATERIAL CHECKER 04/17/2013 Office visit Kaylynn Walker MATERIAL CHECKER 04/03/2013 Nurse visit Kaylynn Walker MATERIAL CHECKER 04/03/2013 Office visit Terese Davidson MD 03/28/2013 Office visit Sundeep Russell MATERIAL CHECKER 03/21/2013 Office visit Kaylynn Walker MATERIAL CHECKER 03/20/2013 Office visit Terese Davidson MD 03/14/2013 Nurse visit Kaylynn Walker MATERIAL CHECKER 03/05/2013 Nurse visit Kaylynn Walker MATERIAL CHECKER 02/19/2013 Office visit Terese Davidson MD 02/16/2013 Nurse visit Kaylynn Walker MATERIAL CHECKER 02/09/2013 Office visit Sundeep Russell MATERIAL CHECKER 02/08/2013 Nurse visit Kaylynn Walker MATERIAL CHECKER 02/01/2013 Nurse visit Kaylynn Walker MATERIAL CHECKER 01/26/2013 Nurse visit Sabrina Mendez LAPIDARIST 01/25/2013 Office visit Kaylynn Walker MATERIAL CHECKER 01/22/2013 Office visit Yoan Castaneda MD 01/18/2013 Nurse visit Kaylynn Walker MATERIAL CHECKER 01/11/2013 Nurse visit Kaylynn Walker MATERIAL CHECKER 01/05/2013 Nurse visit Kaylynn Walker MATERIAL CHECKER 12/29/2012 Office visit Kaylynn Walker MATERIAL CHECKER 11/27/2012 Office visit Kaylynn Mendez MATERIAL CHECKER 11/08/2012 Office visit Odell Tierney MD 11/08/2012 Voided Odell Tierney MD 11/07/2012 Office visit Kaylynn Walker MATERIAL CHECKER 10/31/2012 [facility] John Hoskins MD 10/31/2012 Office visit Kaylynn Walker MATERIAL CHECKER 10/19/2012 Office visit Genoveva Ayala MATERIAL CHECKER 10/10/2012 Office visit Kaylynn Walker MATERIAL CHECKER 10/03/2012 Office visit Kaylynn Walker MATERIAL CHECKER 09/26/2012 Office visit Kaylynn Walker MATERIAL CHECKER 09/06/2012 Office visit Kaylynn Walker MATERIAL CHECKER 09/06/2012 Office visit Odell Tierney MD 08/31/2012 Voided Kaylynn Walker MATERIAL CHECKER 07/28/2012 Office visit Kaylynn Walker MATERIAL CHECKER 07/27/2012 Office visit David Ar DO 07/20/2012 Hospital David Joyner DO 07/13/2012 Hospital David Joyner DO 07/11/2012 Office visit Kaylynn Mendez MATERIAL CHECKER 06/27/2012 [facility] Odell Tierney MD 06/21/2012 Office visit David Joyner DO 06/21/2012 Office visit Odell Tierney MD 06/20/2012 Office visit Brittni Yanez MATERIAL CHECKER 06/06/2012 Office visit Odell Tierney MD 05/03/2012 Office visit Kaylynn Mendez MATERIAL CHECKER 04/28/2012 Office visit Brittni Yanez MATERIAL CHECKER 04/11/2012 Office visit Kaylynn Mendez MATERIAL CHECKER 04/06/2012 Hospital John Hoskins MD 03/30/2012 Office visit Kaylynn Mendez MATERIAL CHECKER 03/15/2012 Office visit Kaylynn Mendez MATERIAL CHECKER 03/15/2012 Office visit Odell Tierney MD 02/09/2012 Office visit Kaylynn Mendez MATERIAL CHECKER 12/23/2011 Office visit Kaylynn Mendez MATERIAL CHECKER 11/02/2011 Office visit Kaylynn Mendez MATERIAL CHECKER 10/14/2011 Office visit Kaylynn Mendez MATERIAL CHECKER 09/27/2011 Office visit Kaylynn Mendez MATERIAL CHECKER 08/19/2011 Hospital John Hoskins MD 08/18/2011 Hospital John Hoskins MD 08/18/2011 Office visit Kaylynn Mendez MATERIAL CHECKER 08/02/2011 Office visit Kaylynn Mendez MATERIAL CHECKER 07/08/2011 Office visit Kaylynn Mendez MATERIAL CHECKER 07/05/2011 Office visit Odell Tierney MD 06/15/2011 Office visit Kaylynn Mendez MATERIAL CHECKER 05/14/2011 Office visit Kaylynn Mendez MATERIAL CHECKER 05/11/2011 Office visit Odell Tierney MD 04/28/2011 Office visit Kaylynn Mendez MATERIAL CHECKER 03/02/2011 Office visit Chadd Norris DO 02/17/2011 [...] visit Odell Tierney MD 07/06/2010 Office visit Odlel Tierney MD 06/18/2010 Office visit Yoan Castaneda [...]
--- OUTSIDE RECORDS SUMMARY | 2018-05-09 18:53 | XMS REPORT ---
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 [employer] Lancets 33 gauge miscellaneous misc 01/21/2016 use as directed [facility] miscellaneous strip 01/21/2016 07/19/2016 Test 2x daily, [...] 08/27/2014 use as directed for 99 days [place] 5-325 mg oral tablet 06/17/2014 06/27/2014 take [...] a day as needed for 30 days awywpaee-mxeusvmow-EQ 3.5-10,000-1 mg/mL-unit/mL-% otic drops,suspension 201401/08/2015 instill 4 [...] HC BMI BSA BMI Percentile O2 Sat(%) 06/18/2016 8:47:00 AM 124 mmHg 70 mmHg [...] Reviewed 04/28/2011 12:00 AM Decadron 1 mg [facility] [place][id number] (Jr) Reviewed 04/28/2011 12:00 AM Depo-Medrol 80 mg ND#[id number]-Nqiuwzgb Reviewed 09/02/2015 12:00 AM Toradol 60 Mg ND#0282-6937-08 Reviewed 09/02/2015 12:00 AM Phenergan, Up to 50 Mg RHC Medicaid Reviewed 09/16/2015 12:00 AM Toradol 60 Mg ND#8997-1222-47 Reviewed 09/16/2015 12:00 AM Phenergan Up to 50 mg RHC Medicare Reviewed 05/11/2011 12:00 AM N BLOCK INJ OCCIPITAL Reviewed 05/11/2011 12:00 AM Kenalog Lz-[address]-20 ANNA Reviewed 11/13/2015 12:00 AM ASSAY OF [...] INJ SC/IM Reviewed 07/08/2011 12:00 AM Toradol,15mg [facility] [place][id number], [place] Reviewed 07/08/2011 12:00 AM Phenergan 50 Mg Im [facility] 4661-6240-52 ALLIE [place] Reviewed 01/21/2016 12:00 AM ECG MONIT/REPRT UP TO 48 HRS Returned 08/02/2011 12:00 AM THER/PROPH/DIAG INJ SC/IM Reviewed 08/02/2011 12:00 AM Decadron 1 mg [facility] [place][id number] (Jr) Reviewed 08/02/2011 12:00 AM Depo-Medrol 80 mg NDC#[id number]-Ozevqqiz Reviewed 03/05/2016 12:00 AM COMPLETE CBC W/AUTO DIFF WBC Returned 03/05/2016 12:00 AM STREP A ASSAY W/OPTIC Returned 03/05/2016 12:00 AM C-REACTIVE PROTEIN Returned 03/18/2016 12:00 AM [facility] MEDICARE - flu vaccine administration Reviewed [...] Reviewed 09/27/2011 12:00 AM Depo-Medrol 80 mg NDC#[id number]-Sslzsmgy Reviewed 10/14/2011 12:00 AM X-RAY EXAM OF ABDOMEN Reviewed 10/14/2011 12:00 AM URINALYSIS AUTO W/O SCOPE Reviewed 12/23/2011 12:00 AM THER/PROPH/DIAG INJ SC/IM Reviewed 12/23/2011 12:00 AM Decadron 1 mg NDC#[id number] (Jr) Reviewed 12/23/2011 12:00 AM Depo-Medrol 80 mg NDC#[id number]-Jpklixwl Reviewed 02/09/2012 12:00 AM THER/PROPH/DIAG INJ SC/IM Reviewed 02/09/2012 12:00 AM Decadron 1 mg NDC#[id number] (Jr) Reviewed 02/09/2012 12:00 AM Depo-Medrol 80 mg NDC#[id number]-Ktojvauq Reviewed 03/15/2012 12:00 AM N BLOCK INJ OCCIPITAL Reviewed 03/15/2012 12:00 AM Kenalog Px-[address]-20 ANNA Reviewed 04/11/2012 12:00 AM COMPLETE CBC W/AUTO DIFF WBC Reviewed 04/11/2012 12:00 AM COMPREHEN METABOLIC PANEL Reviewed 04/11/2012 12:00 AM LIPID PANEL Reviewed 04/11/2012 12:00 AM ASSAY THYROID STIM HORMONE Reviewed 06/20/2012 12:00 AM THER/PROPH/DIAG INJ SC/IM Reviewed 06/20/2012 12:00 AM Decadron, Per 1 Mg ND# [address]-28 Reviewed 06/20/2012 12:00 AM Depo-Medrol, Per 80 Mg ND#9809-4453-46 Reviewed 09/06/2012 12:00 AM N BLOCK INJ OCCIPITAL Reviewed 09/06/2012 12:00 AM Kenalog Vt-[address]-20 ANNA Reviewed 09/06/2012 12:00 AM X-RAY EXAM RIBS UNI 2 VIEWS Reviewed 09/26/2012 12:00 AM THER/PROPH/DIAG INJ SC/IM Reviewed 09/26/2012 12:00 AM Decadron, Per 1 Mg ND# [address]-22 Reviewed 09/26/2012 12:00 AM Depo-Medrol, Per 80 Mg ND#0526-7833-75 Reviewed 10/03/2012 12:00 AM URINALYSIS AUTO W/O SCOPE Reviewed 10/03/2012 12:00 AM THER/PROPH/DIAG INJ SC/IM Reviewed 10/03/2012 12:00 AM Toradol 60 Mg ND#5547-2153-01 Reviewed 10/03/2012 12:00 AM Phenergan, 25Mg [facility] [place]#9300-0372-56 Reviewed 10/19/2012 12:00 AM N BLOCK INJ OCCIPITAL Reviewed 10/19/2012 12:00 AM Kenalog, Per 10 Mg ND#8318-8638-48 Reviewed 10/19/2012 12:00 AM Toradol 30 Mg [facility] [place]#8098-4692-20 Reviewed 10/19/2012 12:00 AM THER/PROPH/DIAG INJ SC/IM Reviewed 10/31/2012 12:00 AM COMPLETE CBC W/AUTO DIFF WBC Reviewed 10/31/2012 12:00 AM COMPREHEN METABOLIC PANEL Reviewed 10/31/2012 12:00 AM LIPID PANEL Reviewed 11/03/2012 12:[address] THORAX W/O & W/DYE Reviewed 11/08/2012 12:00 AM N BLOCK INJ OCCIPITAL Reviewed 11/08/2012 12:00 AM Kenalog Pz-[address]-20 ANNA Reviewed 11/27/2012 12:00 AM COMPLETE CBC [...] 01/25/2013 12:00 AM Decadron, Per 1 Mg [facility] [place] [address]-38 Reviewed 01/25/2013 12:00 AM Depo-Medrol, Per 80 Mg ND#7448-8563-51 Reviewed 01/26/2013 12:00 AM IMMUNOTHERAPY INJECTIONS Reviewed [...] 12:00 AM Decadron, Per 1 Mg ND# [address]-67 Reviewed 05/16/2013 12:00 AM Depo-Medrol, Per 80 Mg NDC#4850-1949-92 Reviewed 05/31/2013 12:00 AM IMMUNOTHERAPY INJECTIONS Reviewed 06/08/2013 12:00 AM IMMUNOTHERAPY INJECTIONS Reviewed 06/14/2013 12:00 AM IMMUNOTHERAPY INJECTIONS Reviewed 06/28/2013 12:00 AM IMMUNOTHERAPY INJECTIONS Reviewed 07/12/2013 12:00 AM X-RAY EXAM RIBS UNI 2 VIEWS Reviewed 07/18/2013 12:00 AM Toradol 60 Mg [facility] [place]#0292-56[address]-69 Reviewed 07/18/2013 12:00 AM THER/PROPH/DIAG INJ SC/IM Reviewed 08/23/2013 12:00 AM COMPLETE CBC W/AUTO DIFF WBC Reviewed 08/23/2013 12:00 AM COMPREHEN METABOLIC PANEL Reviewed 08/23/2013 12:00 AM LIPID PANEL Reviewed 08/31/2013 12:00 AM X-RAY EXAM OF LOWER LEG Reviewed 09/04/2013 12:00 AM IMMUNOTHERAPY INJECTIONS Reviewed 09/14/2013 12:00 AM THER/PROPH/DIAG INJ SC/IM Reviewed 09/14/2013 12:00 AM Decadron, Per 1 Mg [facility] [place] [address]-13 Reviewed 09/14/2013 12:00 AM Depo-Medrol, Per 80 Mg [facility] [place]#1167-3423-78 Reviewed 09/20/2013 12:00 AM IMMUNOTHERAPY INJECTIONS Reviewed [...] INJ OCCIPITAL Reviewed 12/10/2009 12:00 AM Kenalog Qw-[address]-20 ANNA Reviewed 12/16/2009 12:00 AM HIV-1ANTIBODY Reviewed 12/16/2009 12:00 AM COMPLETE CBC W/AUTO DIFF WBC Reviewed 12/16/2009 12:00 AM METABOLIC PANEL TOTAL CA Reviewed 12/16/2009 12:00 AM Type and screen Reviewed 12/16/2009 12:00 AM PROTHROMBIN TIME Reviewed 12/16/2009 12:00 AM THROMBOPLASTIN TIME PARTIAL Reviewed 03/18/2010 12:00 AM DRAIN/INJ JOINT/BURSA W/O US Reviewed 03/18/2010 12:[address]-[address]-20 ANNA Reviewed 11/21/2013 12:00 AM RADEX HAND MINIMUM 3 VIEWS Reviewed 06/03/2010 12:00 AM INJ TRIGGER POINT 1/2 MUSCL Reviewed 06/03/2010 12:00 AM Kenalog per 10Mg Im-Ndc#[address]-69(Niall) Reviewed 12/05/2013 12:00 AM COMPLETE CBC W/AUTO [...] Reviewed 07/23/2010 12:00 AM Kenalog per 10Mg Im-Ndc#[address]-27(Niall) Reviewed 2014 12:00 AM COMPLETE CBC W/AUTO [...] INJ OCCIPITAL Reviewed 10/01/2010 12:00 [place]-[address]-20 ANNA Reviewed 07/25/2014 12:00 AM THER/PROPH/DIAG INJ [...] Quant,IgM <0.80 RMSF , IgG, EIA Negative [facility] [...] 141 Influenza 04/24/2014 sanofi pasteur PMC Fluzone [id number] Intramuscular Left Upper Arm 02/27/2014 01/15/2014 141 Influenza 02/13/2015 sanofi pasteur PMC Fluzone [id number] Intramuscular Left Deltoid 02/13/2015 01/03/2015 140 Tdap 06/06/2015 [employer] SKB BOOSTRIX [id number] Intramuscular Left Deltoid 06/06/2015 07/23/2014 115 Influenza 03/18/2016 sanofi pasteur PMC Fluzone [id number] Intramuscular Left Deltoid 03/17/2016 01/03/2015 141 History [...] Jul 05 2011 1:58PM Muscle Spasm Feb 6 2011 1:58PM Headache Feb 9 2011 1:38PM Heart Sound Abnormality Feb 2011 [...] left lower extremity Jun 04 2016 11:05AM Payers Insurance Name Company Name Plan Name Plan Number Policy Number Policy Group Number Start Date Medicare RHC Medicare RHC [id number] N/A [facility] RHC Comm [id number] N/A Medicare Part A Medicare - Lab/Xray [id number] N/A Medicare Part B Medicare Of [place] [id number] Monday, February 28, 2000 [place] [employer] [place] [id number] Tuesday, November 10, 2009 Medicare Part A Medicare Part A [id number] N/A [place] [employer] - [place] [employer] - RHC [id number] May [facility] Comm Plan of [id number] Wednesday, May 30, 2012 History of Encounters Visit Date Visit Type Provider 06/18/2016 Office visit Kaylynn Mendez SENIOR CLINICAL PROJECT MANAGER 06/07/2016 Office visit Sundeep Russell SENIOR CLINICAL PROJECT MANAGER 06/04/2016 Office visit Heena Dumont MD 05/13/2016 Office visit Heena Dumont MD 05/03/2016 Office visit Heena Dumont MD 04/26/2016 Office visit Kaylynn Mendez SENIOR CLINICAL PROJECT MANAGER 04/14/2016 Office visit Heena Dumont MD 04/13/2016 Office visit Kaylynn Mendez SENIOR CLINICAL PROJECT MANAGER 04/02/2016 Office visit Lena El SENIOR CLINICAL PROJECT MANAGER 04/02/2016 Office visit Heena Dumont MD 03/26/2016 Office visit Yesica Falcon SENIOR CLINICAL PROJECT MANAGER 03/17/2016 Office visit Heena Dumont MD 03/05/2016 Office visit Kaylynn Mendez SENIOR CLINICAL PROJECT MANAGER 02/16/2016 Office visit Heena Dumont MD 02/14/2016 Office visit Na Jones SENIOR CLINICAL PROJECT MANAGER 01/16/2016 Office visit Heena Dumont MD 12/16/2015 Office visit Heena Dumont MD 11/24/2015 Office visit Kaylynn Mendez SENIOR CLINICAL PROJECT MANAGER 11/18/2015 Office visit Heena Dumont MD 11/03/2015 Office visit Sundeep Russell SENIOR CLINICAL PROJECT MANAGER 10/20/2015 Office visit Kaylynn Mendez SENIOR CLINICAL PROJECT MANAGER 09/23/2015 Office visit Kaylynn Andrea SENIOR CLINICAL PROJECT MANAGER 09/16/[address] Pepe Figueroa MD 09/02/2015 Office visit Kaylynn Mendez SENIOR CLINICAL PROJECT MANAGER 09/01/2015 Office visit Kaylynn Mendez SENIOR CLINICAL PROJECT MANAGER 07/30/2015 Office visit Heena Dumont MD 07/15/2015 Office visit Kaylynn Mendez SENIOR CLINICAL PROJECT MANAGER 07/04/2015 Office visit Heena Dumont MD 06/06/2015 Office visit Heena Dumont MD 06/06/2015 Office visit Kaylynn Mendez SENIOR CLINICAL PROJECT MANAGER 06/02/2015 Office visit Kaylynn Mendez SENIOR CLINICAL PROJECT MANAGER 05/26/2015 Office visit Kaylynn Mendez SENIOR CLINICAL PROJECT MANAGER 05/20/2015 Office visit Kaylynn Mendez SENIOR CLINICAL PROJECT MANAGER 05/08/2015 Office visit Heena Dumont MD 05/06/2015 Office visit Kaylynn Mendez SENIOR CLINICAL PROJECT MANAGER 04/29/2015 Office visit Kaylynn Mendez SENIOR CLINICAL PROJECT MANAGER 03/27/2015 Voided Brittni Yanez SENIOR CLINICAL PROJECT MANAGER 03/21/2015 Office visit Heena Dumont MD 03/12/2015 Office visit Kaylynn Mendez SENIOR CLINICAL PROJECT MANAGER 02/26/2015 Office visit Brittni Yanez SENIOR CLINICAL PROJECT MANAGER 02/13/2015 Office visit Heena Dumont MD 01/15/2015 Office visit Brittni Yanez SENIOR CLINICAL PROJECT MANAGER 01/13/2015 Office visit Heena Dumont MD 01/08/[address] Carol Fowler MD 01/01/2015 Office visit Brittni Yanez SENIOR CLINICAL PROJECT MANAGER 12/13/2014 Office visit Heena Dumont MD 11/27/2014 Office visit Kaylynn Mendez SENIOR CLINICAL PROJECT MANAGER 11/14/2014 Office visit Heena Dumont MD 10/18/2014 Office visit Heena Dumont MD 10/17/2014 [facility] Eliseo Hoskins MD 10/09/2014 Office visit Heena Dumont MD 09/25/2014 Office visit Heena Dumont MD 09/17/2014 Office visit Kaylynn Mendez SENIOR CLINICAL PROJECT MANAGER 09/04/2014 Office visit Heena Dumont MD 08/28/2014 Office visit Kaylynn Mendze SENIOR CLINICAL PROJECT MANAGER 08/23/2014 [facility] John Hoskins MD 08/01/2014 Office visit Kaylynn Mendez SENIOR CLINICAL PROJECT MANAGER 07/29/2014 Office visit Heena Dumont MD 07/25/2014 Nurse visit Heena Dumont MD 07/17/2014 Office visit Kaylynn Mendez SENIOR CLINICAL PROJECT MANAGER 07/11/2014 Office visit Heena Dumont MD 07/01/2014 Office visit Heena Dumont MD 06/25/2014 Office visit Kaylynn Mendez SENIOR CLINICAL PROJECT MANAGER 06/12/2014 Office visit Kaylynn Mendez SENIOR CLINICAL PROJECT MANAGER 06/06/2014 Office visit Kaylynn Mendez SENIOR CLINICAL PROJECT MANAGER 05/27/2014 Office visit Heena Dumont MD 04/20/2014 Office visit Yesica Falcon SENIOR CLINICAL PROJECT MANAGER 03/29/2014 Office visit Na Jones SENIOR CLINICAL PROJECT MANAGER 03/15/2014 Office visit Heena Dumont MD 2014 Office visit Heena Dumont MD 2014 [facility] John Hoskins MD 02/27/2014 Nurse visit Heena Dumont MD 02/13/2014 Office visit Lena El SENIOR CLINICAL PROJECT MANAGER 02/07/2014 Office visit Heena Dumont MD 02/03/2014 Office visit Na Jones SENIOR CLINICAL PROJECT MANAGER 01/30/2014 Office visit Kaylynn Mendez SENIOR CLINICAL PROJECT MANAGER 01/24/2014 Office visit Sundeep Russell SENIOR CLINICAL PROJECT MANAGER 01/16/2014 Office visit Kaylynn Mendez SENIOR CLINICAL PROJECT MANAGER 01/10/2014 Nurse visit Kaylynn Mendez SENIOR CLINICAL PROJECT MANAGER 01/08/2014 Office visit Kaylynn Mendez SENIOR CLINICAL PROJECT MANAGER 12/05/2013 Office visit Kaylynn Mendez SENIOR CLINICAL PROJECT MANAGER 11/21/2013 Office visit Kaylynn Mendez SENIOR CLINICAL PROJECT MANAGER 10/23/2013 Office visit Brittni Yanez SENIOR CLINICAL PROJECT MANAGER 10/17/2013 Nurse visit Heena Dumont MD 10/12/2013 Office visit Kaylynn Mendez SENIOR CLINICAL PROJECT MANAGER 10/02/2013 Office visit Heena Dumont MD 09/20/2013 Nurse visit Kaylynn Mendez SENIOR CLINICAL PROJECT MANAGER 09/20/2013 Voided Heena Dumont MD 09/14/2013 Office visit Kaylynn Mendez SENIOR CLINICAL PROJECT MANAGER 09/05/2013 Office visit Sundeep Russell SENIOR CLINICAL PROJECT MANAGER 09/04/2013 Nurse visit Kaylynn Mendez SENIOR CLINICAL PROJECT MANAGER 08/31/2013 Office visit Kaylynn Mendez SENIOR CLINICAL PROJECT MANAGER 08/23/2013 Office visit Heena Dumont MD 08/10/2013 Office visit Kaylynn Walker SENIOR CLINICAL PROJECT MANAGER 07/25/2013 Office visit Kaylynn Walker SENIOR CLINICAL PROJECT MANAGER 07/18/2013 Office visit Kaylynn Walker SENIOR CLINICAL PROJECT MANAGER 07/12/2013 Office visit Kaylynn Walker SENIOR CLINICAL PROJECT MANAGER 06/28/2013 Nurse visit Kaylynn Walker SENIOR CLINICAL PROJECT MANAGER 06/14/2013 Nurse visit Kaylynn Walker SENIOR CLINICAL PROJECT MANAGER 06/08/2013 Nurse visit Kaylynn Walker SENIOR CLINICAL PROJECT MANAGER 05/31/2013 Nurse visit Chadd Norris DO 05/18/2013 Office visit Terese Davidson MD 05/16/2013 Office visit Kaylynn Walker SENIOR CLINICAL PROJECT MANAGER 05/09/2013 Office visit Kaylynn Walker SENIOR CLINICAL PROJECT MANAGER 04/29/2013 [facility] John Hoskins MD 04/25/2013 Nurse visit Kaylynn Walker SENIOR CLINICAL PROJECT MANAGER 04/17/2013 Office visit Kaylynn Walker SENIOR CLINICAL PROJECT MANAGER 04/03/2013 Nurse visit Kaylynn Walker SENIOR CLINICAL PROJECT MANAGER 04/03/2013 Office visit Terese Davidson MD 03/28/2013 Office visit Sundeep Russell SENIOR CLINICAL PROJECT MANAGER 03/21/2013 Office visit Kaylynn Mendez SENIOR CLINICAL PROJECT MANAGER 03/20/2013 Office visit Terese Davidson MD 03/14/2013 Nurse visit Kaylynn Walker SENIOR CLINICAL PROJECT MANAGER 03/05/2013 Nurse visit Kaylynn Walker SENIOR CLINICAL PROJECT MANAGER 02/19/2013 Office visit Terese Davidson MD 02/16/2013 Nurse visit Kaylynn Walker SENIOR CLINICAL PROJECT MANAGER 02/09/2013 Office visit Sundeep Russell SENIOR CLINICAL PROJECT MANAGER 02/08/2013 Nurse visit Kaylynn Walker SENIOR CLINICAL PROJECT MANAGER 02/01/2013 Nurse visit Kaylynn Walker SENIOR CLINICAL PROJECT MANAGER 01/26/2013 Nurse visit Sabrina Mendez CAPACITOR ASSEMBLER 01/25/2013 Office visit Kaylynn Walker SENIOR CLINICAL PROJECT MANAGER 01/22/2013 Office visit Yoan Castaneda MD 01/18/2013 Nurse visit Kaylynn Walker SENIOR CLINICAL PROJECT MANAGER 01/11/2013 Nurse visit Kaylynn Walker SENIOR CLINICAL PROJECT MANAGER 01/05/2013 Nurse visit Kaylynn Walker SENIOR CLINICAL PROJECT MANAGER 12/29/2012 Office visit Kaylynn Walker SENIOR CLINICAL PROJECT MANAGER 11/27/2012 Office visit Kaylynn Andrea SENIOR CLINICAL PROJECT MANAGER 11/08/2012 Office visit Odell Tierney MD 11/08/2012 Voided Odell Tierney MD 11/07/2012 Office visit Kaylynn Mendez SENIOR CLINICAL PROJECT MANAGER 10/31/2012 [facility] John Hoskins MD 10/31/2012 Office visit Kaylynn Walker SENIOR CLINICAL PROJECT MANAGER 10/19/2012 Office visit Genoveva Ayala SENIOR CLINICAL PROJECT MANAGER 10/10/2012 Office visit Kaylynn Walker SENIOR CLINICAL PROJECT MANAGER 10/03/2012 Office visit Kaylynn Walker SENIOR CLINICAL PROJECT MANAGER 09/26/2012 Office visit Kaylynn Walker SENIOR CLINICAL PROJECT MANAGER 09/06/2012 Office visit Kaylynn Walker SENIOR CLINICAL PROJECT MANAGER 09/06/2012 Office visit Odell Tierney MD 08/31/2012 Voided Kaylynn Mnedez SENIOR CLINICAL PROJECT MANAGER 07/28/2012 Office visit Kaylynn Mendez SENIOR CLINICAL PROJECT MANAGER 07/27/2012 Office visit David Ar DO 07/20/2012 Hospital David Ar DO 07/13/2012 Hospital David Ar DO 07/11/2012 Office visit Kaylynn Mendez SENIOR CLINICAL PROJECT MANAGER 06/27/2012 [facility] Odell Tierney MD 06/21/2012 Office visit David Joyner DO 06/21/2012 Office visit Odell Tierney MD 06/20/2012 Office visit Brittni Yanez SENIOR CLINICAL PROJECT MANAGER 06/06/2012 Office visit Odell Tierney MD 05/03/2012 Office visit Kaylynn Mendez SENIOR CLINICAL PROJECT MANAGER 04/28/2012 Office visit Brittni Yanez SENIOR CLINICAL PROJECT MANAGER 04/11/2012 Office visit Kaylynn Mendez SENIOR CLINICAL PROJECT MANAGER 04/06/2012 [facility] John Hoskins MD 03/30/2012 Office visit Kaylynn Mendez SENIOR CLINICAL PROJECT MANAGER 03/15/2012 Office visit Kaylynn Mendez SENIOR CLINICAL PROJECT MANAGER 03/15/2012 Office visit Odell Tierney MD 02/09/2012 Office visit Kaylynn Mendez SENIOR CLINICAL PROJECT MANAGER 12/23/2011 Office visit Kaylynn Mendez SENIOR CLINICAL PROJECT MANAGER 11/02/2011 Office visit Kaylynn Mendez SENIOR CLINICAL PROJECT MANAGER 10/14/2011 Office visit Kaylynn Mendez SENIOR CLINICAL PROJECT MANAGER 09/27/2011 Office visit Kaylynn Mendez SENIOR CLINICAL PROJECT MANAGER 08/19/2011 [facility] John Hoskins MD 08/18/2011 [facility] John Hoskins MD 08/18/2011 Office visit Kaylynn Mendez SENIOR CLINICAL PROJECT MANAGER 08/02/2011 Office visit Kaylynn Mendez SENIOR CLINICAL PROJECT MANAGER 07/08/2011 Office visit Kaylynn Mendez SENIOR CLINICAL PROJECT MANAGER 07/05/2011 Office visit Odell Tierney MD 06/15/2011 Office visit Kaylynn Mendez SENIOR CLINICAL PROJECT MANAGER 05/14/2011 Office visit Kaylynn Mendez SENIOR CLINICAL PROJECT MANAGER 05/11/2011 Office visit Odell Tierney MD 04/28/2011 Office visit Kaylynn Menedz SENIOR CLINICAL PROJECT MANAGER 03/02/2011 Office visit Chadd Norris DO [...]
--- OUTSIDE RECORDS SUMMARY | 2018-05-09 18:58 | XMS REPORT ---
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 [facility] [place] Lancets 33 gauge miscellaneous [facility] 01/21/2016 use as directed AIM miscellaneous strip 01/21/2016 07/19/2016 Test 2x daily, [...] oral route once a day (at bedtime) Levaquin 750 mg oral tablet 04/26/2016 05/03/2016 take 1 tablet (750 mg) by oral route once daily for 7 days cetirizine 10 mg oral tablet 04/26/2016 TAKE 1 TABLET BY MOUTH EVERY DAY Name Start Date Expiration Date SIG Comments [...] 08/27/2014 use as directed for 99 days [place] 5-325 mg oral tablet 06/17/2014 06/27/2014 take [...] a day as needed for 30 days qmontzgt-ebrcxaxpn-IM 3.5-10,000-1 mg/mL-unit/mL-% otic drops,suspension 201401/08/2015 instill 4 [...] HC BMI BSA BMI Percentile O2 Sat(%) 04/26/2016 10:23:00 AM 132 mmHg 76 mmHg [...] Reviewed 04/28/2011 12:00 AM Decadron 1 mg [facility]#[id number] (Jr) Reviewed 04/28/2011 12:00 AM Depo-Medrol 80 mg ND#[id number]-Bbauczur Reviewed 09/02/2015 12:00 AM Toradol 60 Mg ND#3851-9508-07 Reviewed 09/02/2015 12:00 AM Phenergan, Up to 50 Mg [facility] Medicaid Reviewed 09/16/2015 12:00 AM Toradol 60 Mg ND#8366-6026-97 Reviewed 09/16/2015 12:00 AM Phenergan Up to 50 mg RHC Medicare Reviewed 05/11/2011 12:00 AM N BLOCK INJ OCCIPITAL Reviewed 05/11/2011 12:00 AM Kenalog Jh-[id number] ANNA Reviewed 11/13/2015 12:00 AM ASSAY OF [...] INJ SC/IM Reviewed 07/08/2011 12:00 AM Toradol,15mg ND#[id number], [place] Reviewed 07/08/2011 12:00 AM Phenergan 50 Mg Im [facility] [id number] [facility] Reviewed 01/21/2016 12:00 AM ECG MONIT/REPRT UP TO 48 HRS Returned 08/02/2011 12:00 AM THER/PROPH/DIAG INJ SC/IM Reviewed 08/02/2011 12:00 AM Decadron 1 mg NDC#[id number] (Jr) Reviewed 08/02/2011 12:00 AM Depo-Medrol 80 mg NDC#[id number]-Hxepkopo Reviewed 03/05/2016 12:00 AM COMPLETE CBC W/AUTO DIFF WBC Returned 03/05/2016 12:00 AM STREP A ASSAY W/OPTIC Returned 03/05/2016 12:00 AM C-REACTIVE PROTEIN Returned 03/18/2016 12:00 AM [facility] MEDICARE - flu vaccine administration Reviewed 03/18/2016 12:00 AM INFLUENZA VACCINE QUADRIVALENT 3 YRS PLUS IM Reviewed 04/16/2016 12:00 AM Consult/Referral Reviewed 09/27/2011 12:00 AM THER/PROPH/DIAG INJ SC/IM Reviewed 09/27/2011 12:00 AM Depo-Medrol 80 mg NDC#[id number]-Qxfkalor Reviewed 10/14/2011 12:00 AM X-RAY EXAM OF ABDOMEN Reviewed 10/14/2011 12:00 AM URINALYSIS AUTO W/O SCOPE Reviewed 12/23/2011 12:00 AM THER/PROPH/DIAG INJ SC/IM Reviewed 12/23/2011 12:00 AM Decadron 1 mg NDC#[id number] (Jr) Reviewed 12/23/2011 12:00 AM Depo-Medrol 80 mg NDC#[id number]-Yozczkhu Reviewed 02/09/2012 12:00 AM THER/PROPH/DIAG INJ SC/IM Reviewed 02/09/2012 12:00 AM Decadron 1 mg NDC#[id number] (Jr) Reviewed 02/09/2012 12:00 AM Depo-Medrol 80 mg NDC#[id number]-Zjiyzqcf Reviewed 03/15/2012 12:00 AM N BLOCK INJ OCCIPITAL Reviewed 03/15/2012 12:00 AM Kenalog Mf-[address]-20 ANNA Reviewed 04/11/2012 12:00 AM COMPLETE CBC W/AUTO DIFF WBC Reviewed 04/11/2012 12:00 AM COMPREHEN METABOLIC PANEL Reviewed 04/11/2012 12:00 AM LIPID PANEL Reviewed 04/11/2012 12:00 AM ASSAY THYROID STIM HORMONE Reviewed 06/20/2012 12:00 AM THER/PROPH/DIAG INJ SC/IM Reviewed 06/20/2012 12:00 AM Decadron, Per 1 Mg ND# [address]-87 Reviewed 06/20/2012 12:00 AM Depo-Medrol, Per 80 Mg ND#8940-6393-23 Reviewed 09/06/2012 12:00 AM N BLOCK INJ OCCIPITAL Reviewed 09/06/2012 12:00 AM Kenalog Lj-[address]-20 ANNA Reviewed 09/06/2012 12:00 AM X-RAY EXAM RIBS UNI 2 VIEWS Reviewed 09/26/2012 12:00 AM THER/PROPH/DIAG INJ SC/IM Reviewed 09/26/2012 12:00 AM Decadron, Per 1 Mg ND# [address]-17 Reviewed 09/26/2012 12:00 AM Depo-Medrol, Per 80 Mg ND#1461-8085-20 Reviewed 10/03/2012 12:00 AM URINALYSIS AUTO W/O SCOPE Reviewed 10/03/2012 12:00 AM THER/PROPH/DIAG INJ SC/IM Reviewed 10/03/2012 12:00 AM Toradol 60 Mg ND#7173-7347-83 Reviewed 10/03/2012 12:00 AM Phenergan, 25Mg ND#5734-7393-98 Reviewed 10/19/2012 12:00 AM N BLOCK INJ OCCIPITAL Reviewed 10/19/2012 12:00 AM Kenalog, Per 10 Mg ND#6062-4511-94 Reviewed 10/19/2012 12:00 AM Toradol 30 Mg ND#5001-9756-18 Reviewed 10/19/2012 12:00 AM THER/PROPH/DIAG INJ SC/IM Reviewed 10/31/2012 12:00 AM COMPLETE CBC W/AUTO DIFF WBC Reviewed 10/31/2012 12:00 AM COMPREHEN METABOLIC PANEL Reviewed 10/31/2012 12:00 AM LIPID PANEL Reviewed 11/03/2012 12:[address] THORAX W/O & W/DYE Reviewed 11/08/2012 12:00 AM N BLOCK INJ OCCIPITAL Reviewed 11/08/2012 12:00 AM Kenalog Zk-[address]-20 ANNA Reviewed 11/27/2012 12:00 AM COMPLETE CBC [...] 01/25/2013 12:00 AM Decadron, Per 1 Mg ND# [address]-79 Reviewed 01/25/2013 12:00 AM Depo-Medrol, Per 80 Mg NDC#6203-5908-39 Reviewed 01/26/2013 12:00 AM IMMUNOTHERAPY INJECTIONS Reviewed [...] 05/16/2013 12:00 AM Decadron, Per 1 Mg NDC# [address]-60 Reviewed 05/16/2013 12:00 AM Depo-Medrol, Per 80 Mg NDC#1868-0172-34 Reviewed 05/31/2013 12:00 AM IMMUNOTHERAPY INJECTIONS Reviewed 06/08/2013 12:00 AM IMMUNOTHERAPY INJECTIONS Reviewed 06/14/2013 12:00 AM IMMUNOTHERAPY INJECTIONS Reviewed 06/28/2013 12:00 AM IMMUNOTHERAPY INJECTIONS Reviewed 07/12/2013 12:00 AM X-RAY EXAM RIBS UNI 2 VIEWS Reviewed 07/18/2013 12:00 AM Toradol 60 Mg [facility]#6380-5715-28 Reviewed 07/18/2013 12:00 AM THER/PROPH/DIAG INJ SC/IM Reviewed 08/23/2013 12:00 AM COMPLETE CBC W/AUTO DIFF WBC Reviewed 08/23/2013 12:00 AM COMPREHEN METABOLIC PANEL Reviewed 08/23/2013 12:00 AM LIPID PANEL Reviewed 08/31/2013 12:00 AM X-RAY EXAM OF LOWER LEG Reviewed 09/04/2013 12:00 AM IMMUNOTHERAPY INJECTIONS Reviewed 09/14/2013 12:00 AM THER/PROPH/DIAG INJ SC/IM Reviewed 09/14/2013 12:00 AM Decadron, Per 1 Mg [facility]# [address]-47 Reviewed 09/14/2013 12:00 AM Depo-Medrol, Per 80 Mg [facility]#4471-3054-68 Reviewed 09/20/2013 12:00 AM IMMUNOTHERAPY INJECTIONS Reviewed [...] INJ OCCIPITAL Reviewed 12/10/2009 12:00 AM Kenalog Az-[address]-20 ANNA Reviewed 12/16/2009 12:00 AM HIV-1ANTIBODY Reviewed 12/16/2009 12:00 AM COMPLETE CBC W/AUTO DIFF WBC Reviewed 12/16/2009 12:00 AM METABOLIC PANEL TOTAL CA Reviewed 12/16/2009 12:00 AM Type and screen Reviewed 12/16/2009 12:00 AM PROTHROMBIN TIME Reviewed 12/16/2009 12:00 AM THROMBOPLASTIN TIME PARTIAL Reviewed 03/18/2010 12:00 AM DRAIN/INJ JOINT/BURSA W/O US Reviewed 03/18/2010 12:00 AM Kenalog Hn-[address]-20 ANNA Reviewed 11/21/2013 12:00 AM RADEX HAND MINIMUM 3 VIEWS Reviewed 06/03/2010 12:00 AM INJ TRIGGER POINT 1/2 MUSCL Reviewed 06/03/2010 12:00 AM Kenalog per 10Mg Im-Nd#[address]-52(Niall) Reviewed 12/05/2013 12:00 AM COMPLETE CBC W/AUTO [...] Reviewed 07/23/2010 12:00 AM Kenalog per 10Mg Im-Ndc#[address]-73(Niall) Reviewed 2014 12:00 AM COMPLETE CBC W/AUTO [...] INJ OCCIPITAL Reviewed 10/01/2010 12:00 AM Kenalog Hl-[address]-20 ANNA Reviewed 07/25/2014 12:00 AM THER/PROPH/DIAG INJ [...] Quant,IgM <0.80 RMSF , IgG, EIA Negative [facility] Spotted Fever,IgM 0.51 E. chaffeensis [...] ML Cortisol,F,ug/L,U <1 ug/LCortisol,F,ug/24hr,U <3 ug/24 hr History Of Immunizations Name Date Admin Mfg Name Mfg Code Trade Name Lot# Route Inj Vis Given Vis Pub CVX Influenza 03/30/2011 Not Entered NE Not Entered Not Entered Not Entered 03/31/2011 05/30/2016 141 Influenza 04/24/2014 sanofi pasteur PMC Fluzone [id number] Intramuscular Left Upper Arm 02/27/2014 01/15/2014 141 Influenza 02/13/2015 sanofi pasteur PMC Fluzone [id number] Intramuscular Left Deltoid 02/13/2015 01/03/2015 140 Tdap 06/06/2015 GlaxoSmithKline SKB BOOSTRIX [id number] Intramuscular Left Deltoid 06/06/2015 07/23/2014 115 Influenza 03/18/2016 sanofi pasteur PMC Fluzone [id number] Intramuscular Left Deltoid 03/17/2016 01/03/2015 141 History [...] non-recurrent maxillary sinusitis Apr 26 2016 10:26AM Payers Insurance Name Company Name Plan Name Plan Number Policy Number Policy Group Number Start Date Medicare Part A Medicare RHC [id number] N/A [facility] - [facility] Plan of [facility] RHC Comm [id number] N/A Medicare Part A Medicare - Lab/Xray [id number] N/A Medicare Part B Medicare Of [place] [id number] Monday, February 28, 2000 [place] [employer] [place] [employer] [place] [id number] Tuesday, November 10, 2009 Medicare Part A Medicare Part A [id number] N/A [place] [employer] - R[place] [employer] - RHC [id number] May [facility] Comm Plan of [id number] Wednesday, May 30, 2012 History of Encounters Visit Date Visit Type Provider 04/26/2016 Office visit Kaylynn Mendez FINANCIAL AID MANAGER 04/14/2016 Office visit Heena Dumont MD 04/13/2016 Office visit Kaylynn Mendez FINANCIAL AID MANAGER 04/02/2016 Office visit Lena El FINANCIAL AID MANAGER 04/02/2016 Office visit Heena Dumont MD 03/26/2016 Office visit Yesica Falcon FINANCIAL AID MANAGER 03/17/2016 Office visit Heena Dumont MD 03/05/2016 Office visit Kaylynn Mendez FINANCIAL AID MANAGER 02/16/2016 Office visit Heena Dumont MD 02/14/2016 Office visit Na Jones FINANCIAL AID MANAGER 01/16/2016 Office visit Heena Dumont MD 12/16/2015 Office visit Heena Dumont MD 11/24/2015 Office visit Kaylynn Mendez FINANCIAL AID MANAGER 11/18/2015 Office visit Heena Dumont MD 11/03/2015 Office visit Sundeep Russell FINANCIAL AID MANAGER 10/20/2015 Office visit Kaylynn Mendez FINANCIAL AID MANAGER 09/23/2015 Office visit Kaylynn Mendez FINANCIAL AID MANAGER 09/16/[address] Pepe Figueroa MD 09/02/2015 Office visit Kaylynn Mendez FINANCIAL AID MANAGER 09/01/2015 Office visit Kaylynn Mendez FINANCIAL AID MANAGER 07/30/2015 Office visit Heena Dumont MD 07/15/2015 Office visit Kaylynn Mendez FINANCIAL AID MANAGER 07/04/2015 Office visit Heena Dumont MD 06/06/2015 Office visit Heean Dumont MD 06/06/2015 Office visit Kaylynn Mendez FINANCIAL AID MANAGER 06/02/2015 Office visit Kaylynn Walker FINANCIAL AID MANAGER 05/26/2015 Office visit Kaylynn Walker FINANCIAL AID MANAGER 05/20/2015 Office visit Kaylynn Walker FINANCIAL AID MANAGER 05/08/2015 Office visit Heena Dumont MD 05/06/2015 Office visit Kaylynn Mendez FINANCIAL AID MANAGER 04/29/2015 Office visit Kaylynn Walker FINANCIAL AID MANAGER 03/27/2015 Voided Brittni Yanez FINANCIAL AID MANAGER 03/21/2015 Office visit Heena Dumont MD 03/12/2015 Office visit Kaylynn Mendez FINANCIAL AID MANAGER 02/26/2015 Office visit Brittni Yanez FINANCIAL AID MANAGER 02/13/2015 Office visit Heena Dumont MD 01/15/2015 Office visit Brittni Yanez FINANCIAL AID MANAGER 01/13/2015 Office visit Heena Dumont MD 01/08/[address] Carol Fowler MD 01/01/2015 Office visit Brittni Yanez FINANCIAL AID MANAGER 12/13/2014 Office visit Heena Dumont MD 11/27/2014 Office visit Kaylynn Mendez FINANCIAL AID MANAGER 11/14/2014 Office visit Heena Dumont MD 10/18/2014 Office visit Heena Dumont MD 10/17/2014 [facility] John Hoskins MD 10/09/2014 Office visit Heena Dumont MD 09/25/2014 Office visit Heena Dumont MD 09/17/2014 Office visit Kaylynn Mendez FINANCIAL AID MANAGER 09/04/2014 Office visit Heena Dumont MD 08/28/2014 Office visit Kaylynn Mendez FINANCIAL AID MANAGER 08/23/2014 [facility] John Hoskins MD 08/01/2014 Office visit Kaylynn Mendez FINANCIAL AID MANAGER 07/29/2014 Office visit Heena Dumont MD 07/25/2014 Nurse visit Heena Dumont MD 07/17/2014 Office visit Kaylynn Mendez FINANCIAL AID MANAGER 07/11/2014 Office visit Heena Dumont MD 07/01/2014 Office visit Heena Dumont MD 06/25/2014 Office visit Kaylynn Mendez FINANCIAL AID MANAGER 06/12/2014 Office visit Kaylynn Mendez FINANCIAL AID MANAGER 06/06/2014 Office visit Kaylynn Mendez FINANCIAL AID MANAGER 05/27/2014 Office visit Heena Dumont MD 04/20/2014 Office visit Yesica Falcon FINANCIAL AID MANAGER 03/29/2014 Office visit Na Jones FINANCIAL AID MANAGER 03/15/2014 Office visit Heena Dumont MD 2014 Office visit Heena Dumont MD 2014 [facility] John Hoskins MD 02/27/2014 Nurse visit Heena Dumont MD 02/13/2014 Office visit Lena El FINANCIAL AID MANAGER 02/07/2014 Office visit Heena Dumont MD 02/03/2014 Office visit Na Jones FINANCIAL AID MANAGER 01/30/2014 Office visit Kaylynn Mendez FINANCIAL AID MANAGER 01/24/2014 Office visit Sundeep Russell FINANCIAL AID MANAGER 01/16/2014 Office visit Kaylynn Walker FINANCIAL AID MANAGER 01/10/2014 Nurse visit Kaylynn Mendez FINANCIAL AID MANAGER 01/08/2014 Office visit Kaylynn Mendez FINANCIAL AID MANAGER 12/05/2013 Office visit Kaylynn Walker FINANCIAL AID MANAGER 11/21/2013 Office visit Kaylynn Andrea FINANCIAL AID MANAGER 10/23/2013 Office visit Brittni Yanez FINANCIAL AID MANAGER 10/17/2013 Nurse visit Heena Dumont MD 10/12/2013 Office visit Kaylynn Mendez FINANCIAL AID MANAGER 10/02/2013 Office visit Heena Dumont MD 09/20/2013 Nurse visit Kaylynn Mendez FINANCIAL AID MANAGER 09/20/2013 Voided Heena Dumont MD 09/14/2013 Office visit Kaylynn Walker FINANCIAL AID MANAGER 09/05/2013 Office visit Sundeep Russell FINANCIAL AID MANAGER 09/04/2013 Nurse visit Kaylynn Mendez FINANCIAL AID MANAGER 08/31/2013 Office visit Kaylynn Mendez FINANCIAL AID MANAGER 08/23/2013 Office visit Heena Dumont MD 08/10/2013 Office visit Kaylynn Mendez FINANCIAL AID MANAGER 07/25/2013 Office visit Kaylynn Walker FINANCIAL AID MANAGER 07/18/2013 Office visit Kaylynn Walker FINANCIAL AID MANAGER 07/12/2013 Office visit Kaylynn Walker FINANCIAL AID MANAGER 06/28/2013 Nurse visit Kaylynn Walker FINANCIAL AID MANAGER 06/14/2013 Nurse visit Kaylynn Walker FINANCIAL AID MANAGER 06/08/2013 Nurse visit Kaylynn Walker FINANCIAL AID MANAGER 05/31/2013 Nurse visit Chadd Norris DO 05/18/2013 Office visit Terese Davidson MD 05/16/2013 Office visit Kaylynn Mendez FINANCIAL AID MANAGER 05/09/2013 Office visit Kaylynn Mendez FINANCIAL AID MANAGER 04/29/2013 [facility] John Hoskins MD 04/25/2013 Nurse visit Kaylynn Walker FINANCIAL AID MANAGER 04/17/2013 Office visit Kaylynn Mendez FINANCIAL AID MANAGER 04/03/2013 Nurse visit Kaylynn Mendez FINANCIAL AID MANAGER 04/03/2013 Office visit Terese Davidson MD 03/28/2013 Office visit Sundeep Russell FINANCIAL AID MANAGER 03/21/2013 Office visit Kaylynn Mendez FINANCIAL AID MANAGER 03/20/2013 Office visit Terese Davidson MD 03/14/2013 Nurse visit Kaylynn Mendez FINANCIAL AID MANAGER 03/05/2013 Nurse visit Kaylynn Walker FINANCIAL AID MANAGER 02/19/2013 Office visit Terese Davidson MD 02/16/2013 Nurse visit Kaylynn Andrea FINANCIAL AID MANAGER 02/09/2013 Office visit Sundeep Russell FINANCIAL AID MANAGER 02/08/2013 Nurse visit Kaylynn Mendez FINANCIAL AID MANAGER 02/01/2013 Nurse visit Kaylynn Walker FINANCIAL AID MANAGER 01/26/2013 Nurse visit Sabrina Andrea ELEVATOR ERECTOR HELPER 01/25/2013 Office visit Kaylynn Andrea FINANCIAL AID MANAGER 01/22/2013 Office visit Yoan Castaneda MD 01/18/2013 Nurse visit Kaylynn Andrea FINANCIAL AID MANAGER 01/11/2013 Nurse visit Kaylynn Walker FINANCIAL AID MANAGER 01/05/2013 Nurse visit Kaylynn Walker FINANCIAL AID MANAGER 12/29/2012 Office visit Kaylynn Andrea FINANCIAL AID MANAGER 11/27/2012 Office visit Kaylynn Andrea FINANCIAL AID MANAGER 11/08/2012 Office visit Odell Tierney MD 11/08/2012 Voided Odell Tierney MD 11/07/2012 Office visit Kaylynn Mendez FINANCIAL AID MANAGER 10/31/2012 [facility] John Hoskins MD 10/31/2012 Office visit Kaylynn Mendez FINANCIAL AID MANAGER 10/19/2012 Office visit Genoveva Ayala FINANCIAL AID MANAGER 10/10/2012 Office visit Kaylynn Mendez FINANCIAL AID MANAGER 10/03/2012 Office visit Kaylynn Walker FINANCIAL AID MANAGER 09/26/2012 Office visit Kaylynn Mendez FINANCIAL AID MANAGER 09/06/2012 Office visit Kaylynn Andrea FINANCIAL AID MANAGER 09/06/2012 Office visit Odell Tierney MD 08/31/2012 Voided Kaylynn Mendez FINANCIAL AID MANAGER 07/28/2012 Office visit Kaylynn Mendez FINANCIAL AID MANAGER 07/27/2012 Office visit David Joyner DO 07/20/2012 [facility] David Joyner DO 07/13/2012 [facility] David Joyner DO 07/11/2012 Office visit Kaylynn Mendez FINANCIAL AID MANAGER 06/27/2012 [facility] Odell Tierney MD 06/21/2012 Office visit David Joyner DO 06/21/2012 Office visit Odell Tierney MD 06/20/2012 Office visit Brittni Yanez FINANCIAL AID MANAGER 06/06/2012 Office visit Odell Tierney MD 05/03/2012 Office visit Kaylynn Mendez FINANCIAL AID MANAGER 04/28/2012 Office visit Brittni Yanez FINANCIAL AID MANAGER 04/11/2012 Office visit Kaylynn Mendez FINANCIAL AID MANAGER 04/06/2012 [facility] John Hoskins MD 03/30/2012 Office visit Kaylynn Walker FINANCIAL AID MANAGER 03/15/2012 Office visit Kaylynn Walker FINANCIAL AID MANAGER 03/15/2012 Office visit Oedll Tierney MD 02/09/2012 Office visit Kaylynn Walker FINANCIAL AID MANAGER 12/23/2011 Office visit Kaylynn Walker FINANCIAL AID MANAGER 11/02/2011 Office visit Kaylynn Walker FINANCIAL AID MANAGER 10/14/2011 Office visit Kaylynn Walker FINANCIAL AID MANAGER 09/27/2011 Office visit Kaylynn Walker FINANCIAL AID MANAGER 08/19/2011 [facility] John Hoskins MD 08/18/2011 [facility] John Hoskins MD 08/18/2011 Office visit Kaylynn Walker FINANCIAL AID MANAGER 08/02/2011 Office visit Kaylynn Walker FINANCIAL AID MANAGER 07/08/2011 Office visit Kaylynn Walker FINANCIAL AID MANAGER 07/05/2011 Office visit Odell Tierney MD 06/15/2011 Office visit Kaylynn Walker FINANCIAL AID MANAGER 05/14/2011 Office visit Kaylynn Mendez FINANCIAL AID MANAGER 05/11/2011 Office visit Odell Tierney MD 04/28/2011 Office visit Kaylynn Andrea FINANCIAL AID MANAGER 03/02/2011 Office visit Chadd Norris DO [...]
--- OUTSIDE RECORDS SUMMARY | 2018-05-09 19:01 | XMS REPORT ---
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 Name Role Phone Kaylynn Mendez PCP Unavailable [...] 08/27/2014 use as directed for 99 days Troy 5-325 mg oral tablet 06/17/2014 06/27/2014 take [...] a day as needed for 30 days apsdwvqs-cdycciokn-CK 3.5-10,000-1 mg/mL-unit/mL-% otic drops,suspension 201401/08/2015 instill 4 [...] HC BMI BSA BMI Percentile O2 Sat(%) 03/12/2015 11:37:00 AM 126 mmHg 64 mmHg [...] Reviewed 04/28/2011 12:00 AM Decadron 1 mg ND#[id number] (Jr) Reviewed 04/28/2011 12:00 AM Depo-Medrol 80 mg NDC#[id number]-Ahsbixlb Reviewed 05/11/2011 12:00 AM N BLOCK INJ OCCIPITAL Reviewed 05/11/2011 12:00 AM Kenalog Uz-[address]-20 ANNA Reviewed 06/15/2011 12:00 AM COMPLETE CBC W/AUTO DIFF WBC Returned 06/15/2011 12:00 AM COMPREHEN METABOLIC PANEL Returned 07/08/2011 12:00 AM THER/PROPH/DIAG INJ SC/IM Reviewed 07/08/2011 12:00 AM Toradol,15mg ND#[id number], Brunildaer Reviewed 07/08/2011 12:00 AM Phenergan 50 Mg Im Nd 0158-3974-40 FP West Reviewed 08/02/2011 12:00 AM THER/PROPH/DIAG INJ SC/IM Reviewed 08/02/2011 12:00 AM Decadron 1 mg NDC#[id number] (Jr) Reviewed 08/02/2011 12:00 AM Depo-Medrol 80 mg NDC#[id number]-Ihqalqqp Reviewed 09/27/2011 12:00 AM THER/PROPH/DIAG INJ SC/IM Reviewed 09/27/2011 12:00 AM Depo-Medrol 80 mg NDC#[id number]-Dqhobdoo Reviewed 10/14/2011 12:00 AM X-RAY EXAM OF ABDOMEN Returned 10/14/2011 12:00 AM URINALYSIS AUTO W/O SCOPE Reviewed 12/23/2011 12:00 AM THER/PROPH/DIAG INJ SC/IM Reviewed 12/23/2011 12:00 AM Decadron 1 mg NDC#[id number] (Jr) Reviewed 12/23/2011 12:00 AM Depo-Medrol 80 mg NDC#[id number]-Qqcqffvr Reviewed 02/09/2012 12:00 AM THER/PROPH/DIAG INJ SC/IM Reviewed 02/09/2012 12:00 AM Decadron 1 mg NDC#[id number] (Jr) Reviewed 02/09/2012 12:00 AM Depo-Medrol 80 mg NDC#[id number]-Rvznmbxb Reviewed 03/15/2012 12:00 AM N BLOCK INJ OCCIPITAL Reviewed 03/15/2012 12:00 AM Kenalog Rj-[address]-20 ANNA Reviewed 04/11/2012 12:00 AM COMPLETE CBC W/AUTO DIFF WBC Returned 04/11/2012 12:00 AM COMPREHEN METABOLIC PANEL Returned 04/11/2012 12:00 AM LIPID PANEL Returned 04/11/2012 12:00 AM ASSAY THYROID STIM HORMONE Returned 06/20/2012 12:00 AM THER/PROPH/DIAG INJ SC/IM Reviewed 06/20/2012 12:00 AM Decadron, Per 1 Mg [facility]# [address]-53 Reviewed 06/20/2012 12:00 AM Depo-Medrol, Per 80 Mg ND#8035-0290-59 Reviewed 09/06/2012 12:00 AM N BLOCK INJ OCCIPITAL Reviewed 09/06/2012 12:00 AM Kenalog Ww-[address]-20 ANNA Reviewed 09/06/2012 12:00 AM X-RAY EXAM RIBS UNI 2 VIEWS Returned 09/26/2012 12:00 AM THER/PROPH/DIAG INJ SC/IM Reviewed 09/26/2012 12:00 AM Decadron, Per 1 Mg [facility]# [address]-29 Reviewed 09/26/2012 12:00 AM Depo-Medrol, Per 80 Mg [facility]#8258-0403-59 Reviewed 10/03/2012 12:00 AM URINALYSIS AUTO W/O SCOPE Reviewed 10/03/2012 12:00 AM THER/PROPH/DIAG INJ SC/IM Reviewed 10/03/2012 12:00 AM Toradol 60 Mg [facility]#6304-0502-23 Reviewed 10/03/2012 12:00 AM Phenergan, 25Mg [facility]#2305-7072-68 Reviewed 10/19/2012 12:00 AM N BLOCK INJ OCCIPITAL Reviewed 10/19/2012 12:00 AM Kenalog, Per 10 Mg [facility]#2469-8780-85 Reviewed 10/19/2012 12:00 AM Toradol 30 Mg [facility]#3511-3003-99 Reviewed 10/19/2012 12:00 AM THER/PROPH/DIAG INJ SC/IM Reviewed 10/31/2012 12:00 AM COMPLETE CBC W/AUTO DIFF WBC Returned 10/31/2012 12:00 AM COMPREHEN METABOLIC PANEL Returned 10/31/2012 12:00 AM LIPID PANEL Returned 11/03/2012 12:[address] THORAX W/O & W/DYE Returned 11/08/2012 12:00 AM N BLOCK INJ OCCIPITAL Reviewed 11/08/2012 12:00 AM Kenalog Am-[address]-20 ANNA Reviewed 11/27/2012 12:00 AM COMPLETE CBC [...] 01/25/2013 12:00 AM Decadron, Per 1 Mg [facility]# [address]-01 Reviewed 01/25/2013 12:00 AM Depo-Medrol, Per 80 Mg [facility]#6561-9249-95 Reviewed 01/26/2013 12:00 AM IMMUNOTHERAPY INJECTIONS Returned [...] 05/16/2013 12:00 AM Decadron, Per 1 Mg [facility]# [address]-87 Reviewed 05/16/2013 12:00 AM Depo-Medrol, Per 80 Mg [facility]#3945-6092-92 Reviewed 05/31/2013 12:00 AM IMMUNOTHERAPY INJECTIONS Reviewed 06/08/2013 12:00 AM IMMUNOTHERAPY INJECTIONS Reviewed 06/14/2013 12:00 AM IMMUNOTHERAPY INJECTIONS Reviewed 06/28/2013 12:00 AM IMMUNOTHERAPY INJECTIONS Reviewed 07/12/2013 12:00 AM X-RAY EXAM RIBS UNI 2 VIEWS Returned 07/18/2013 12:00 AM Toradol 60 Mg [facility]#4238-8691-33 Reviewed 07/18/2013 12:00 AM THER/PROPH/DIAG INJ SC/IM Reviewed 08/23/2013 12:00 AM COMPLETE CBC W/AUTO DIFF WBC Reviewed 08/23/2013 12:00 AM COMPREHEN METABOLIC PANEL Reviewed 08/23/2013 12:00 AM LIPID PANEL Reviewed 08/31/2013 12:00 AM X-RAY EXAM OF LOWER LEG Returned 09/04/2013 12:00 AM IMMUNOTHERAPY INJECTIONS Reviewed 09/14/2013 12:00 AM THER/PROPH/DIAG INJ SC/IM Reviewed 09/14/2013 12:00 AM Decadron, Per 1 Mg [facility]# [address]-33 Reviewed 09/14/2013 12:00 AM Depo-Medrol, Per 80 Mg [facility]#0343-5190-23 Reviewed 09/20/2013 12:00 AM IMMUNOTHERAPY INJECTIONS Reviewed [...] INJ OCCIPITAL Reviewed 12/10/2009 12:00 AM Kenalog Tl-[address]-20 ANNA Reviewed 12/16/2009 12:00 AM HIV-1ANTIBODY Reviewed 12/16/2009 12:00 AM COMPLETE CBC W/AUTO DIFF WBC Reviewed 12/16/2009 12:00 AM METABOLIC PANEL TOTAL CA Reviewed 12/16/2009 12:00 AM Type and screen Reviewed 12/16/2009 12:00 AM PROTHROMBIN TIME Reviewed 12/16/2009 12:00 AM THROMBOPLASTIN TIME PARTIAL Reviewed 03/18/2010 12:00 AM DRAIN/INJ JOINT/BURSA W/O US Reviewed 03/18/2010 12:00 AM Kenalog Kq-[address]-20 ANNA Reviewed 11/21/2013 12:00 AM RADEX HAND MINIMUM 3 VIEWS Returned 06/03/2010 12:00 AM INJ TRIGGER POINT 1/2 MUSCL Reviewed 06/03/2010 12:00 AM Kenalog per 10Mg Im-Ndc#[address]-78(Niall) Reviewed 12/05/2013 12:00 AM COMPLETE CBC W/AUTO [...] Reviewed 07/23/2010 12:00 AM Kenalog per 10Mg Im-Ndc#[address]-57(Niall) Reviewed 2014 12:00 AM COMPLETE CBC W/AUTO [...] INJ OCCIPITAL Reviewed 10/01/2010 12:00 AM Kenalog Ou-[address]-20 ANNA Reviewed 07/25/2014 12:00 AM THER/PROPH/DIAG INJ [...] 0.60 mg/dLCALCIUM 10.90 mg/ dLeGFR >60 mL/min/1.73 [id number] 45.0 U/L 08/31/2013 10:54 AM GLUCOSE 255.0 [...] 0.40 mg/ dLCALCIUM 10.60 mg/dLeGFR >60 mL/min/1.73 [id number] 369.0 mg/ dLCHOLESTEROL 153.0 mg/dLHDL 26.0 mg/dLLDL [...] BILI 0.30 mg/dLCALCIUM 10.0 mg/dLeGFR >60 mL/min/1.73 [id number] YELLOW APPEARANCE CLEAR SPEC GRAV 1.010 pH 5.5 PROTEIN NEGATIVE GLUCOSE NEGATIVE KETONE NEGATIVE BILIRUBIN NEGATIVE BLOOD NEGATIVE NITRITE NEGATIVE LEUK SCREEN NEGATIVE Est Avg Glucose 134.1 mg/dLMICROALBUMIN UR <0.5 MG/DL 02/13/2015 4:38 PM RMSF, IgG, EIA Negative [facility] Spotted Fever,IgM 0.51 E. chaffeensis (HME) [...] 141 Influenza 04/24/2014 sanofi pasteur PMC Fluzone [id number] Intramuscular Left Upper Arm 02/27/2014 01/15/2014 141 Influenza 02/13/2015 sanofi pasteur PMC Fluzone [id number] Intramuscular Left Deltoid 02/13/2015 01/03/2015 140 History [...] Otitis Media, Acute b 2014 10:04AM Asthma Feb 18 2014 10:04AM Headache Feb 2014 4:46PM Fall as cause of accidental injury in home as place of occurrence, initial encounter Feb 2014 4:46PM Ankle instability, left Feb 2014 11:30AM Ankle pain b 2014 11:30AM History of fall Jul 23 2014 11:30AM Headache Feb 2014 11:30AM Osteoporosis Feb 26 2014 2:09PM Post concussion syndrome Jul 29 [...] strain, initial encounter Mar 12 2015 11:39AM Payers Insurance Name Company Name Plan Name Plan Number Policy Number Policy Group Number Start Date Medicare Part A Medicare Part A [id number] N/A [facility] Comm [id number] N/A [id number] May [facility] Plan of [id number] Wednesday, 2012 Medicare Part B Medicare [facility] [id number] Monday, 2000 [place] [employer] [facility] Medical Assistance Pro [id number] Tuesday, 2009 History of Encounters Visit Date Visit Type Provider 03/12/2015 Office visit Kaylynn Mendez ENGAGEMENT EXECUTIVE 02/26/2015 Office visit Brittni Yanez ENGAGEMENT EXECUTIVE 02/13/2015 Office visit Heena Dumont MD 01/15/2015 Office visit Brittni Yanez ENGAGEMENT EXECUTIVE 01/13/2015 Office visit Heena Dumont MD 01/08/[address] Carol Fowler MD 01/01/2015 Office visit Brittni Yanez ENGAGEMENT EXECUTIVE 12/13/2014 Office visit Heena Dumont MD 11/27/2014 Office visit Kaylynn Mendez ENGAGEMENT EXECUTIVE 11/14/2014 Office visit Henea Dumont MD 10/18/2014 Office visit Heena Dumont MD 10/17/2014 [facility] Hoskins MD 10/09/2014 Office visit Heena Dumont MD 09/25/2014 Office visit Heena Dumont MD 09/17/2014 Office visit Kaylynn Mendez ENGAGEMENT EXECUTIVE 09/04/2014 Office visit Heena Dumont MD 08/28/2014 Office visit Kaylynn Mendez ENGAGEMENT EXECUTIVE 08/23/2014 [facility] John Hoskins MD 08/01/2014 Office visit Kaylynn Mendez ENGAGEMENT EXECUTIVE 07/29/2014 Office visit Heena Dumont MD 07/25/2014 Nurse visit Heena Dumont MD 07/17/2014 Office visit Kaylynn Mendez ENGAGEMENT EXECUTIVE 07/11/2014 Office visit Heena Dumont MD 07/01/2014 Office visit Heena Dumont MD 06/25/2014 Office visit Kaylynn Mendez ENGAGEMENT EXECUTIVE 06/12/2014 Office visit Kaylynn Mendez ENGAGEMENT EXECUTIVE 06/06/2014 Office visit Kaylynn Mendez ENGAGEMENT EXECUTIVE 05/27/2014 Office visit Heena Dumont MD 04/20/2014 Office visit Yesica Falcon ENGAGEMENT EXECUTIVE 03/29/2014 Office visit Na Jones ENGAGEMENT EXECUTIVE 03/15/2014 Office visit Heena Dumont MD 2014 Office visit Heena Dumont MD 2014 [facility] MD 02/27/2014 Nurse visit Heena Dumont MD 02/13/2014 Office visit Lena El ENGAGEMENT EXECUTIVE 02/07/2014 Office visit Heena Dumont MD 02/03/2014 Office visit Na Jones ENGAGEMENT EXECUTIVE 01/30/2014 Office visit Kaylynn Andrea ENGAGEMENT EXECUTIVE 01/24/2014 Office visit Sundeep Russell ENGAGEMENT EXECUTIVE 01/16/2014 Office visit Kaylynn Walker ENGAGEMENT EXECUTIVE 01/10/2014 Nurse visit Kaylynn Andrea ENGAGEMENT EXECUTIVE 01/08/2014 Office visit Kaylynn Walker ENGAGEMENT EXECUTIVE 12/05/2013 Office visit Kaylynn Walker ENGAGEMENT EXECUTIVE 11/21/2013 Office visit Kaylynn Walker ENGAGEMENT EXECUTIVE 10/23/2013 Office visit Brittni Yanez ENGAGEMENT EXECUTIVE 10/17/2013 Nurse visit Heena Dumont MD 10/12/2013 Office visit Kaylynn Mendez ENGAGEMENT EXECUTIVE 10/02/2013 Office visit Heena Dumont MD 09/20/2013 Nurse visit Kaylynn Mendez ENGAGEMENT EXECUTIVE 09/20/2013 Voided Heena Dumont MD 09/14/2013 Office visit Kaylynn Walker ENGAGEMENT EXECUTIVE 09/05/2013 Office visit Sundeep Russell ENGAGEMENT EXECUTIVE 09/04/2013 Nurse visit Kaylynn Mendez ENGAGEMENT EXECUTIVE 08/31/2013 Office visit Kaylynn Mendez ENGAGEMENT EXECUTIVE 08/23/2013 Office visit Heena Dumont MD 08/10/2013 Office visit Kaylynn Mendez ENGAGEMENT EXECUTIVE 07/25/2013 Office visit Kaylynn Walker ENGAGEMENT EXECUTIVE 07/18/2013 Office visit Kaylynn Walker ENGAGEMENT EXECUTIVE 07/12/2013 Office visit Kaylynn Andrea ENGAGEMENT EXECUTIVE 06/28/2013 Nurse visit Kaylynn Walker ENGAGEMENT EXECUTIVE 06/14/2013 Nurse visit Kaylynn Walker ENGAGEMENT EXECUTIVE 06/08/2013 Nurse visit Kaylynn Walker ENGAGEMENT EXECUTIVE 05/31/2013 Nurse visit Chadd Norris DO 05/18/2013 Office visit Terese Davidson MD 05/16/2013 Office visit Kaylynn Mendez ENGAGEMENT EXECUTIVE 05/09/2013 Office visit Kaylynn Walker ENGAGEMENT EXECUTIVE 04/29/2013 [facility] Eliseo Hoskins MD 04/25/2013 Nurse visit Kaylynn Walker ENGAGEMENT EXECUTIVE 04/17/2013 Office visit Kaylynn Walker ENGAGEMENT EXECUTIVE 04/03/2013 Nurse visit Kaylynn Mendez ENGAGEMENT EXECUTIVE 04/03/2013 Office visit Terese Davidson MD 03/28/2013 Office visit Sundeep Russell ENGAGEMENT EXECUTIVE 03/21/2013 Office visit Kaylynn Mendez ENGAGEMENT EXECUTIVE 03/20/2013 Office visit Terese Davidson MD 03/14/2013 Nurse visit Kaylynn Mendez ENGAGEMENT EXECUTIVE 03/05/2013 Nurse visit Kaylynn Mendez ENGAGEMENT EXECUTIVE 02/19/2013 Office visit Terese Davidson MD 02/16/2013 Nurse visit Kaylynn Mendez ENGAGEMENT EXECUTIVE 02/09/2013 Office visit Sundeep Russell ENGAGEMENT EXECUTIVE 02/08/2013 Nurse visit Kaylynn Mendez ENGAGEMENT EXECUTIVE 02/01/2013 Nurse visit Kaylynn Mendez ENGAGEMENT EXECUTIVE 01/26/2013 Nurse visit Sabrina Andrea RICE DRIER OPERATOR 01/25/2013 Office visit Kaylynn Mendez ENGAGEMENT EXECUTIVE 01/22/2013 Office visit Yoan Castaneda MD 01/18/2013 Nurse visit Kaylynn Mendez ENGAGEMENT EXECUTIVE 01/11/2013 Nurse visit Kaylynn Mendez ENGAGEMENT EXECUTIVE 01/05/2013 Nurse visit Kaylynn Walker ENGAGEMENT EXECUTIVE 12/29/2012 Office visit Kaylynn Walker ENGAGEMENT EXECUTIVE 11/27/2012 Office visit Kaylynn Mendez ENGAGEMENT EXECUTIVE 11/08/2012 Office visit Odell Tierney MD 11/08/2012 Voided Odell Tierney MD 11/07/2012 Office visit Kaylynn Mendez ENGAGEMENT EXECUTIVE 10/31/2012 [facility] John Hoskins MD 10/31/2012 Office visit Kaylynn Mendez ENGAGEMENT EXECUTIVE 10/19/2012 Office visit Genoveva Ayala ENGAGEMENT EXECUTIVE 10/10/2012 Office visit Kaylynn Mendez ENGAGEMENT EXECUTIVE 10/03/2012 Office visit Kaylynn Mendez ENGAGEMENT EXECUTIVE 09/26/2012 Office visit Kaylynn Mendez ENGAGEMENT EXECUTIVE 09/06/2012 Office visit Kaylynn Mendez ENGAGEMENT EXECUTIVE 09/06/2012 Office visit Odell Tierney MD 08/31/2012 Voided Kaylynn Mendez ENGAGEMENT EXECUTIVE 07/28/2012 Office visit Kaylynn Mendez ENGAGEMENT EXECUTIVE 07/27/2012 Office visit David Joyner DO 07/20/2012 [facility] DO 07/13/2012 [facility] DO 07/11/2012 Office visit Kaylynn Mendez ENGAGEMENT EXECUTIVE 06/27/2012 [facility] Odell Tierney MD 06/21/2012 Office visit David Joyner DO 06/21/2012 Office visit Odell Tierney MD 06/20/2012 Office visit Brittni Yanez ENGAGEMENT EXECUTIVE 06/06/2012 Office visit Odell Tierney MD 05/03/2012 Office visit Kaylynn Mendez ENGAGEMENT EXECUTIVE 04/28/2012 Office visit Brittni Yanez ENGAGEMENT EXECUTIVE 04/11/2012 Office visit Kaylynn Mendez ENGAGEMENT EXECUTIVE 04/06/2012 [facility] John Hoskins MD 03/30/2012 Office visit Kaylynn Mendez ENGAGEMENT EXECUTIVE 03/15/2012 Office visit Kaylynn Mendez ENGAGEMENT EXECUTIVE 03/15/2012 Office visit Odell Tierney MD 02/09/2012 Office visit Kaylynn Mendez ENGAGEMENT EXECUTIVE 12/23/2011 Office visit Kaylynn Mendez ENGAGEMENT EXECUTIVE 11/02/2011 Office visit Kaylynn Mendez ENGAGEMENT EXECUTIVE 10/14/2011 Office visit Kaylynn Mendez ENGAGEMENT EXECUTIVE 09/27/2011 Office visit Kaylynn Mendez ENGAGEMENT EXECUTIVE 08/19/2011 [facility] MD 08/18/2011 [facility] MD 08/18/2011 Office visit Kaylynn Mendez ENGAGEMENT EXECUTIVE 08/02/2011 Office visit Kaylynn Mendez ENGAGEMENT EXECUTIVE 07/08/2011 Office visit Kaylynn Mendez ENGAGEMENT EXECUTIVE 07/05/2011 Office visit Odell Tierney MD 06/15/2011 Office visit Kaylynn Mendez ENGAGEMENT EXECUTIVE 05/14/2011 Office visit Kaylynn Mendez ENGAGEMENT EXECUTIVE 05/11/2011 Office visit Odell Tierney MD 04/28/2011 Office visit Kaylynn Mendez ENGAGEMENT EXECUTIVE 03/02/2011 Office visit Chadd Norris DO 02/17/2011 [...]
--- OUTSIDE RECORDS SUMMARY | 2018-05-09 19:06 | XMS REPORT ---
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 Role Phone Kaylynn Mendez PCP Unavailable [...] 08/27/2014 use as directed for 99 days [facility] 5-325 mg oral tablet 06/17/2014 06/27/2014 take [...] a day as needed for 30 days [id number]-[id number]-[place] 3.5-10,000-1 mg/mL-unit/mL-% otic drops,suspension 201401/08/2015 instill 4 [...] Reviewed 04/28/2011 12:00 AM Decadron 1 mg NDC#[id number] (Jr) Reviewed 04/28/2011 12:00 AM Depo-Medrol 80 mg ND#[id number]-Rwuvmfsi Reviewed 09/02/2015 12:00 AM Toradol 60 Mg ND#8034-8845-30 Reviewed 09/02/2015 12:00 AM Phenergan, Up to 50 Mg [facility] Medicaid Reviewed 09/16/2015 12:00 AM Toradol 60 Mg ND#8677-9603-60 Reviewed 09/16/2015 12:00 AM Phenergan Up to 50 mg [facility] Medicare Reviewed 05/11/2011 12:00 AM N BLOCK INJ OCCIPITAL Reviewed 05/11/2011 12:00 AM Kenalog Ru-[address]-20 ANNA Reviewed 11/13/2015 12:00 AM ASSAY OF [...] 12:00 AM Toradol,15mg [facility]#[id number] Reviewed 07/08/2011 12:00 AM Phenergan 50 Mg Im [facility] 9377-2743-02 [facility] Reviewed 08/02/2011 12:00 AM THER/PROPH/DIAG INJ SC/IM Reviewed 08/02/2011 12:00 AM Decadron 1 mg ND#[id number] (Jr) Reviewed 08/02/2011 12:00 AM Depo-Medrol 80 mg [facility]#[id number]-Lhfurkrx Reviewed 09/27/2011 12:00 AM THER/PROPH/DIAG INJ SC/IM Reviewed 09/27/2011 12:00 AM Depo-Medrol 80 mg [facility]#[id number]-Grjvnopr Reviewed 10/14/2011 12:00 AM X-RAY EXAM OF ABDOMEN Returned 10/14/2011 12:00 AM URINALYSIS AUTO W/O SCOPE Reviewed 12/23/2011 12:00 AM THER/PROPH/DIAG INJ SC/IM Reviewed 12/23/2011 12:00 AM Decadron 1 mg NDC#[id number] (Jr) Reviewed 12/23/2011 12:00 AM Depo-Medrol 80 mg NDC#[id number]-Yrzwgfne Reviewed 02/09/2012 12:00 AM THER/PROPH/DIAG INJ SC/IM Reviewed 02/09/2012 12:00 AM Decadron 1 mg NDC#[id number] (Jr) Reviewed 02/09/2012 12:00 AM Depo-Medrol 80 mg NDC#[id number]-Udqylpyd Reviewed 03/15/2012 12:00 AM N BLOCK INJ OCCIPITAL Reviewed 03/15/2012 12:00 AM Kenalog Fu-[address]-20 ANNA Reviewed 04/11/2012 12:00 AM COMPLETE CBC W/AUTO DIFF WBC Returned 04/11/2012 12:00 AM COMPREHEN METABOLIC PANEL Returned 04/11/2012 12:00 AM LIPID PANEL Returned 04/11/2012 12:00 AM ASSAY THYROID STIM HORMONE Returned 06/20/2012 12:00 AM THER/PROPH/DIAG INJ SC/IM Reviewed 06/20/2012 12:00 AM Decadron, Per 1 Mg NDC# [address]-14 Reviewed 06/20/2012 12:00 AM Depo-Medrol, Per 80 Mg NDC#1768-4313-57 Reviewed 09/06/2012 12:00 AM N BLOCK INJ OCCIPITAL Reviewed 09/06/2012 12:00 AM Kenalog Dc-[address]-20 ANNA Reviewed 09/06/2012 12:00 AM X-RAY EXAM RIBS UNI 2 VIEWS Returned 09/26/2012 12:00 AM THER/PROPH/DIAG INJ SC/IM Reviewed 09/26/2012 12:00 AM Decadron, Per 1 Mg NDC# [address]-17 Reviewed 09/26/2012 12:00 AM Depo-Medrol, Per 80 Mg NDC#8021-6371-77 Reviewed 10/03/2012 12:00 AM URINALYSIS AUTO W/O SCOPE Reviewed 10/03/2012 12:00 AM THER/PROPH/DIAG INJ SC/IM Reviewed 10/03/2012 12:00 AM Toradol 60 Mg [facility]#0781-4889-11 Reviewed 10/03/2012 12:00 AM Phenergan, 25Mg ND#9288-7226-59 Reviewed 10/19/2012 12:00 AM N BLOCK INJ OCCIPITAL Reviewed 10/19/2012 12:00 AM Kenalog, Per 10 Mg [facility]#0268-7495-34 Reviewed 10/19/2012 12:00 AM Toradol 30 Mg ND#5981-4450-34 Reviewed 10/19/2012 12:00 AM THER/PROPH/DIAG INJ SC/IM Reviewed 10/31/2012 12:00 AM COMPLETE CBC W/AUTO DIFF WBC Returned 10/31/2012 12:00 AM COMPREHEN METABOLIC PANEL Returned 10/31/2012 12:00 AM LIPID PANEL Returned 11/03/2012 12:[address] THORAX W/O & W/DYE Returned 11/08/2012 12:00 AM N BLOCK INJ OCCIPITAL Reviewed 11/08/2012 12:00 AM Kenalog [id number]-[id number] ANNA Reviewed 11/27/2012 12:00 AM COMPLETE CBC [...] Per 1 Mg [facility]# [address]-95 Reviewed 01/25/2013 12:00 AM Depo-Medrol, Per 80 Mg [facility]#4500-1396-59 Reviewed 01/26/2013 12:00 AM IMMUNOTHERAPY INJECTIONS Returned [...] Per 1 Mg [facility]# [address]-42 Reviewed 05/16/2013 12:00 AM Depo-Medrol, Per 80 Mg [facility]#9683-7094-52 Reviewed 05/31/2013 12:00 AM IMMUNOTHERAPY INJECTIONS Reviewed 06/08/2013 12:00 AM IMMUNOTHERAPY INJECTIONS Reviewed 06/14/2013 12:00 AM IMMUNOTHERAPY INJECTIONS Reviewed 06/28/2013 12:00 AM IMMUNOTHERAPY INJECTIONS Reviewed 07/12/2013 12:00 AM X-RAY EXAM RIBS UNI 2 VIEWS Returned 07/18/2013 12:00 AM Toradol 60 Mg [facility]#0326-5710-97 Reviewed 07/18/2013 12:00 AM THER/PROPH/DIAG INJ SC/IM Reviewed 08/23/2013 12:00 AM COMPLETE CBC W/AUTO DIFF WBC Reviewed 08/23/2013 12:00 AM COMPREHEN METABOLIC PANEL Reviewed 08/23/2013 12:00 AM LIPID PANEL Reviewed 08/31/2013 12:00 AM X-RAY EXAM OF LOWER LEG Returned 09/04/2013 12:00 AM IMMUNOTHERAPY INJECTIONS Reviewed 09/14/2013 12:00 AM THER/PROPH/DIAG INJ SC/IM Reviewed 09/14/2013 12:00 AM Decadron, Per 1 Mg [facility]# [address]-29 Reviewed 09/14/2013 12:00 AM Depo-Medrol, Per 80 Mg [facility]#2857-8604-44 Reviewed 09/20/2013 12:00 AM IMMUNOTHERAPY INJECTIONS Reviewed [...] INJ OCCIPITAL Reviewed 12/10/2009 12:00 AM Kenalog Dk-[address]-20 ANNA Reviewed 12/16/2009 12:00 AM HIV-1ANTIBODY Reviewed 12/16/2009 12:00 AM COMPLETE CBC W/AUTO DIFF WBC Reviewed 12/16/2009 12:00 AM METABOLIC PANEL TOTAL CA Reviewed 12/16/2009 12:00 AM Type and screen Reviewed 12/16/2009 12:00 AM PROTHROMBIN TIME Reviewed 12/16/2009 12:00 AM THROMBOPLASTIN TIME PARTIAL Reviewed 03/18/2010 12:00 AM DRAIN/INJ JOINT/BURSA W/O US Reviewed 03/18/2010 12:[address]-[address]-20 ANNA Reviewed 11/21/2013 12:00 AM RADEX HAND MINIMUM 3 VIEWS Returned 06/03/2010 12:00 AM INJ TRIGGER POINT 1/2 MUSCL Reviewed 06/03/2010 12:00 AM Kenalog per 10Mg -[facility]#[address]-46(Niall) Reviewed 12/05/2013 12:00 AM COMPLETE CBC W/AUTO [...] Kenalog per 10Mg Im-[facility]#[address]-40(Niall) Reviewed 2014 12:00 AM COMPLETE CBC W/AUTO [...] INJ OCCIPITAL Reviewed 10/01/2010 12:00 AM Kenalog Rf-[address]-20 ANNA Reviewed 07/25/2014 12:00 AM THER/PROPH/DIAG INJ [...] 0.60 mg/dLCALCIUM 10.90 mg/ dLeGFR >60 mL/min/1.73 [id number] 45.0 U/L 08/31/2013 10:54 AM GLUCOSE 255.0 [...] 0.40 mg/ dLCALCIUM 10.60 mg/dLeGFR >60 mL/min/1.73 [id number] 369.0 mg/ dLCHOLESTEROL 153.0 mg/dLHDL 26.0 mg/dLLDL [...] BILI 0.30 mg/dLCALCIUM 10.0 mg/dLeGFR >60 mL/min/1.73 [id number] YELLOW APPEARANCE CLEAR SPEC GRAV 1.010 pH 5.5 PROTEIN NEGATIVE GLUCOSE NEGATIVE KETONE NEGATIVE BILIRUBIN NEGATIVE BLOOD NEGATIVE NITRITE NEGATIVE LEUK SCREEN NEGATIVE HGB A1C 6.30 %Est Avg Glucose 134.1 mg/dLMICROALBUMIN UR <0.5 MG/DL 02/13/2015 4:38 PM RMSF, IgG, EIA Negative [facility] Spotted [...] 141 Influenza 04/24/2014 sanofi pasteur PMC Fluzone [id number] Intramuscular Left Upper Arm 02/27/2014 01/15/2014 141 Influenza 02/13/2015 sanofi pasteur PMC Fluzone [id number] Intramuscular Left Deltoid 02/13/2015 01/03/2015 140 Tdap [...] Number Start Date Medicare Part A Medicare [facility] [id number] N/A [facility] - [facility] [place] [facility] [id number] N/A Medicare Part A Medicare - Lab/Xray [id number] N/A Medicare Part B Medicare [place] [id number] Monday, February 28, 2000 [place] Medical Assistance [place] Medical Assistance Prog [id number] Tuesday, November 10, 2009 Medicare Part A Medicare Part A [id number] N/A [place] [employer] Prog - R[facility] [place] 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 Pepe Figueroa MD 09/02/2015 Office visit Kaylynn Mendez HOME IMPROVEMENT CONTRACTOR 09/01/2015 Office visit Kaylynn Mendez HOME IMPROVEMENT CONTRACTOR 07/30/2015 Office visit Heena Dumont MD 07/15/2015 Office visit Kaylynn Mendez HOME IMPROVEMENT CONTRACTOR 07/04/2015 Office visit Heena Dumont MD 06/06/2015 Office visit Heena Dumont MD 06/06/2015 Office visit Kaylynn Mendez HOME IMPROVEMENT CONTRACTOR 06/02/2015 Office visit Kaylynn Mendez HOME IMPROVEMENT CONTRACTOR 05/26/2015 Office visit Kaylynn Mendez HOME IMPROVEMENT CONTRACTOR 05/20/2015 Office visit Kaylynn Mendez HOME IMPROVEMENT CONTRACTOR 05/08/2015 Office visit Heena Dumont MD 05/06/2015 Office visit Kaylynn Mendez HOME IMPROVEMENT CONTRACTOR 04/29/2015 Office visit Kaylynn Mendez HOME IMPROVEMENT CONTRACTOR 03/27/2015 Voided Brittni Yanez HOME IMPROVEMENT CONTRACTOR 03/21/2015 Office visit Heena Dumont MD 03/12/2015 Office visit Kaylynn Mendez HOME IMPROVEMENT CONTRACTOR 02/26/2015 Office visit Brittni Yanez HOME IMPROVEMENT CONTRACTOR 02/13/2015 Office visit Heena Dumont MD 01/15/2015 Office visit Brittni Yanez HOME IMPROVEMENT CONTRACTOR 01/13/2015 Office visit Heena Dumont MD 01/08/[address] Carol Fowler MD 01/01/2015 Office visit Brittni Yanez HOME IMPROVEMENT CONTRACTOR 12/13/2014 Office visit Heena Dumont MD 11/27/2014 Office visit Kaylynn Mendez HOME IMPROVEMENT CONTRACTOR 11/14/2014 Office visit Heena Dumont MD 10/18/2014 Office visit Heena Dumont MD 10/17/2014 [facility] Eliseo Hoskins MD 10/09/2014 Office visit Heena Dumont MD 09/25/2014 Office visit Heena Dumont MD 09/17/2014 Office visit Kaylynn Mendez HOME IMPROVEMENT CONTRACTOR 09/04/2014 Office visit Heena Dumont MD 08/28/2014 Office visit Kaylynn Mendez HOME IMPROVEMENT CONTRACTOR 08/23/2014 [facility] Eliseo Hoskins MD 08/01/2014 Office visit Kaylynn Mendez HOME IMPROVEMENT CONTRACTOR 07/29/2014 Office visit Heena Dumont MD 07/25/2014 Nurse visit Heena Dumont MD 07/17/2014 Office visit Kaylynn Mendez HOME IMPROVEMENT CONTRACTOR 07/11/2014 Office visit Heena Dumont MD 07/01/2014 Office visit Heena Dumont MD 06/25/2014 Office visit Kaylynn Mendez HOME IMPROVEMENT CONTRACTOR 06/12/2014 Office visit Kaylynn Mendez HOME IMPROVEMENT CONTRACTOR 06/06/2014 Office visit Kaylynn Mendez HOME IMPROVEMENT CONTRACTOR 05/27/2014 Office visit Heena Dumont MD 04/20/2014 Office visit Yesica Falcon HOME IMPROVEMENT CONTRACTOR 03/29/2014 Office visit Na Jones HOME IMPROVEMENT CONTRACTOR 03/15/2014 Office visit Heena Dumont MD 2014 Office visit Heena Dumont MD 2014 [facility] Eliseo Hoskins MD 02/27/2014 Nurse visit Heena Dumont MD 02/13/2014 Office visit Lena El HOME IMPROVEMENT CONTRACTOR 02/07/2014 Office visit Heena Dumont MD 02/03/2014 Office visit Na Jones HOME IMPROVEMENT CONTRACTOR 01/30/2014 Office visit Kaylynn Mendez HOME IMPROVEMENT CONTRACTOR 01/24/2014 Office visit Sundeep Russell HOME IMPROVEMENT CONTRACTOR 01/16/2014 Office visit Kaylynn Mendez HOME IMPROVEMENT CONTRACTOR 01/10/2014 Nurse visit Kaylynn Mendez HOME IMPROVEMENT CONTRACTOR 01/08/2014 Office visit Kaylynn Mendez HOME IMPROVEMENT CONTRACTOR 12/05/2013 Office visit Kaylynn Mendez HOME IMPROVEMENT CONTRACTOR 11/21/2013 Office visit Kaylynn Mendez HOME IMPROVEMENT CONTRACTOR 10/23/2013 Office visit Brittni Yanez HOME IMPROVEMENT CONTRACTOR 10/17/2013 Nurse visit Heena Dumont MD 10/12/2013 Office visit Kaylynn Mendez HOME IMPROVEMENT CONTRACTOR 10/02/2013 Office visit Heena Dumont MD 09/20/2013 Nurse visit Kaylynn Walker HOME IMPROVEMENT CONTRACTOR 09/20/2013 Voided Heena Dumont MD 09/14/2013 Office visit Kaylynn Walker HOME IMPROVEMENT CONTRACTOR 09/05/2013 Office visit Sundeep Russell HOME IMPROVEMENT CONTRACTOR 09/04/2013 Nurse visit Kaylynn Walker HOME IMPROVEMENT CONTRACTOR 08/31/2013 Office visit Kaylynn Walker HOME IMPROVEMENT CONTRACTOR 08/23/2013 Office visit Heena Dumont MD 08/10/2013 Office visit Kaylynn Walker HOME IMPROVEMENT CONTRACTOR 07/25/2013 Office visit Kaylynn Walker HOME IMPROVEMENT CONTRACTOR 07/18/2013 Office visit Kaylynn Walker HOME IMPROVEMENT CONTRACTOR 07/12/2013 Office visit Kaylynn Walker HOME IMPROVEMENT CONTRACTOR 06/28/2013 Nurse visit Kaylynn Walker HOME IMPROVEMENT CONTRACTOR 06/14/2013 Nurse visit Kaylynn Walker HOME IMPROVEMENT CONTRACTOR 06/08/2013 Nurse visit Kaylynn Walker HOME IMPROVEMENT CONTRACTOR 05/31/2013 Nurse visit Chadd Norris DO 05/18/2013 Office visit Terese Davidson MD 05/16/2013 Office visit Kaylynn Walker HOME IMPROVEMENT CONTRACTOR 05/09/2013 Office visit Kaylynn Walker HOME IMPROVEMENT CONTRACTOR 04/29/2013 [facility] Eliseo Hoskins MD 04/25/2013 Nurse visit Kaylynn Walker HOME IMPROVEMENT CONTRACTOR 04/17/2013 Office visit Kaylynn Walker HOME IMPROVEMENT CONTRACTOR 04/03/2013 Nurse visit Kaylynn Walker HOME IMPROVEMENT CONTRACTOR 04/03/2013 Office visit Terese Davidson MD 03/28/2013 Office visit Sundeep Russell HOME IMPROVEMENT CONTRACTOR 03/21/2013 Office visit Kaylynn Mendez HOME IMPROVEMENT CONTRACTOR 03/20/2013 Office visit Terese Davidson MD 03/14/2013 Nurse visit Kaylynn Walker HOME IMPROVEMENT CONTRACTOR 03/05/2013 Nurse visit Kaylynn Mendez HOME IMPROVEMENT CONTRACTOR 02/19/2013 Office visit Terese Davidson MD 02/16/2013 Nurse visit Kaylynn Walker HOME IMPROVEMENT CONTRACTOR 02/09/2013 Office visit Sundeep Russell HOME IMPROVEMENT CONTRACTOR 02/08/2013 Nurse visit Kaylynn Walker HOME IMPROVEMENT CONTRACTOR 02/01/2013 Nurse visit Kaylynn Walker HOME IMPROVEMENT CONTRACTOR 01/26/2013 Nurse visit Sabrina Mendez FISH HATCHERY SUPERINTENDENT 01/25/2013 Office visit Kaylynn Walker HOME IMPROVEMENT CONTRACTOR 01/22/2013 Office visit Yoan Castaneda MD 01/18/2013 Nurse visit Kaylynn Walker HOME IMPROVEMENT CONTRACTOR 01/11/2013 Nurse visit Kaylynn Walker HOME IMPROVEMENT CONTRACTOR 01/05/2013 Nurse visit Kaylynn Walker HOME IMPROVEMENT CONTRACTOR 12/29/2012 Office visit Kaylynn Walker HOME IMPROVEMENT CONTRACTOR 11/27/2012 Office visit Kaylynn Mendez HOME IMPROVEMENT CONTRACTOR 11/08/2012 Office visit Odell Tierney MD 11/08/2012 Voided Odell Tierney MD 11/07/2012 Office visit Kaylynn Mendez HOME IMPROVEMENT CONTRACTOR 10/31/2012 Hospital John Hoskins MD 10/31/2012 Office visit Kaylynn Walker HOME IMPROVEMENT CONTRACTOR 10/19/2012 Office visit Genoveva Ayala HOME IMPROVEMENT CONTRACTOR 10/10/2012 Office visit Kaylynn Walker HOME IMPROVEMENT CONTRACTOR 10/03/2012 Office visit Kaylynn Walker HOME IMPROVEMENT CONTRACTOR 09/26/2012 Office visit Kaylynn Walker HOME IMPROVEMENT CONTRACTOR 09/06/2012 Office visit Kaylynn Andrea HOME IMPROVEMENT CONTRACTOR 09/06/2012 Office visit Odell Tierney MD 08/31/2012 Voided Kaylynn Mendez HOME IMPROVEMENT CONTRACTOR 07/28/2012 Office visit Kaylynn Walker HOME IMPROVEMENT CONTRACTOR 07/27/2012 Office visit David Joyner DO 07/20/2012 [facility] David Bouman DO 07/13/2012 Hospital David Bouman DO 07/11/2012 Office visit Kaylynn Andrea HOME IMPROVEMENT CONTRACTOR 06/27/2012 [facility] Odell Tierney MD 06/21/2012 Office visit David Joyner DO 06/21/2012 Office visit Odell Tierney MD 06/20/2012 Office visit Brittni Yanez HOME IMPROVEMENT CONTRACTOR 06/06/2012 Office visit Odell Tierney MD 05/03/2012 Office visit Kaylynn Mendez HOME IMPROVEMENT CONTRACTOR 04/28/2012 Office visit Brittni Yanez HOME IMPROVEMENT CONTRACTOR 04/11/2012 Office visit Kaylynn Mendez HOME IMPROVEMENT CONTRACTOR 04/06/2012 Hospital John Hoskins MD 03/30/2012 Office visit Kaylynn Walker HOME IMPROVEMENT CONTRACTOR 03/15/2012 Office visit Kaylynn Mendez HOME IMPROVEMENT CONTRACTOR 03/15/2012 Office visit Odell Tierney MD 02/09/2012 Office visit Kaylynn Mendez HOME IMPROVEMENT CONTRACTOR 12/23/2011 Office visit Kaylynn Mendez HOME IMPROVEMENT CONTRACTOR 11/02/2011 Office visit Kaylynn Walker HOME IMPROVEMENT CONTRACTOR 10/14/2011 Office visit Kaylynn Walker HOME IMPROVEMENT CONTRACTOR 09/27/2011 Office visit Kaylynn Walker HOME IMPROVEMENT CONTRACTOR 08/19/2011 Hospital John Hoskins MD 08/18/2011 Hospital John Hoskins MD 08/18/2011 Office visit Kaylynn Walker HOME IMPROVEMENT CONTRACTOR 08/02/2011 Office visit Kaylynn Walker HOME IMPROVEMENT CONTRACTOR 07/08/2011 Office visit Kaylynn Walker HOME IMPROVEMENT CONTRACTOR 07/05/2011 Office visit Odell Tierney MD 06/15/2011 Office visit Kaylynn Mendez HOME IMPROVEMENT CONTRACTOR 05/14/2011 Office visit Kaylynn Mendez HOME IMPROVEMENT CONTRACTOR 05/11/2011 Office visit Odell Tierney MD 04/28/2011 Office visit Kaylynn Walker HOME IMPROVEMENT CONTRACTOR 03/02/2011 Office visit Chadd Norris DO 02/17/2011 [...]
--- OUTSIDE RECORDS SUMMARY | 2018-05-09 19:10 | XMS REPORT ---
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 [employer] [place] Lancets 33 gauge miscellaneous misc 01/21/2016 use as directed [employer] miscellaneous strip 01/21/2016 07/19/2016 Test 2x daily, [...] 3 times per week for 7 days Name Start Date Expiration [...] use as directed for 99 days [place] 5-325 mg oral tablet 06/17/2014 06/27/2014 take [...] a day as needed for 30 days dolmijmd-gwadwdnsa-JF 3.5-10,000-1 mg/mL-unit/mL-% otic drops,suspension 201401/08/2015 instill 4 [...] exceed 30 mL in 24 hours Mildred Davises 100 mg oral capsule 04/30/2013 05/18/2013 take [...] HC BMI BSA BMI Percentile O2 Sat(%) 04/02/2016 11:09:00 AM 121 mmHg 68 mmHg [...] Reviewed 04/28/2011 12:00 AM Decadron 1 mg ND#[id number] (Jr) Reviewed 04/28/2011 12:00 AM Depo-Medrol 80 mg ND#[id number]-Etqjtbxs Reviewed 09/02/2015 12:00 AM Toradol 60 Mg ND#8336-1872-40 Reviewed 09/02/2015 12:00 AM Phenergan, Up to 50 Mg RHC Medicaid Reviewed 09/16/2015 12:00 AM Toradol 60 Mg ND#9077-7356-73 Reviewed 09/16/2015 12:00 AM Phenergan Up to 50 mg RHC Medicare Reviewed 05/11/2011 12:00 AM N BLOCK INJ OCCIPITAL Reviewed 05/11/2011 12:00 AM Kenalog Nk-[address]-20 ANNA Reviewed 11/13/2015 12:00 AM ASSAY OF [...] AM Toradol,15mg [facility] [place][id number], [place] Reviewed 07/08/2011 12:00 AM Phenergan 50 Mg Im [facility] [id number] FP [place] Reviewed 01/21/2016 12:00 AM ECG MONIT/REPRT UP TO 48 HRS Returned 08/02/2011 12:00 AM THER/PROPH/DIAG INJ SC/IM Reviewed 08/02/2011 12:00 AM Decadron 1 mg [facility] [place]#[id number] (Jr) Reviewed 08/02/2011 12:00 AM Depo-Medrol 80 mg [facility] [place]#[id number]-Mttssggx Reviewed 03/05/2016 12:00 AM COMPLETE CBC W/AUTO DIFF WBC Returned 03/05/2016 12:00 AM STREP A ASSAY W/OPTIC Returned 03/05/2016 12:00 AM C-REACTIVE PROTEIN Returned 03/18/2016 12:00 AM [facility] MEDICARE - flu vaccine administration Reviewed 03/18/2016 12:00 AM INFLUENZA VACCINE QUADRIVALENT 3 YRS PLUS IM Reviewed 09/27/2011 12:00 AM THER/PROPH/DIAG INJ SC/IM Reviewed 09/27/2011 12:00 AM Depo-Medrol 80 mg [facility] [place]#[id number]-Rexatyfd Reviewed 10/14/2011 12:00 AM X-RAY EXAM OF ABDOMEN Returned 10/14/2011 12:00 AM URINALYSIS AUTO W/O SCOPE Reviewed 12/23/2011 12:00 AM THER/PROPH/DIAG INJ SC/IM Reviewed 12/23/2011 12:00 AM Decadron 1 mg [facility] [place]#[id number] (Jr) Reviewed 12/23/2011 12:00 AM Depo-Medrol 80 mg NDC#[id number]-Ficfrvpd Reviewed 02/09/2012 12:00 AM THER/PROPH/DIAG INJ SC/IM Reviewed 02/09/2012 12:00 AM Decadron 1 mg NDC#[id number] (Jr) Reviewed 02/09/2012 12:00 AM Depo-Medrol 80 mg NDC#[id number]-Mobcesli Reviewed 03/15/2012 12:00 AM N BLOCK INJ OCCIPITAL Reviewed 03/15/2012 12:00 AM Kenalog Lk-[address]-20 ANNA Reviewed 04/11/2012 12:00 AM COMPLETE CBC W/AUTO DIFF WBC Returned 04/11/2012 12:00 AM COMPREHEN METABOLIC PANEL Returned 04/11/2012 12:00 AM LIPID PANEL Returned 04/11/2012 12:00 AM ASSAY THYROID STIM HORMONE Returned 06/20/2012 12:00 AM THER/PROPH/DIAG INJ SC/IM Reviewed 06/20/2012 12:00 AM Decadron, Per 1 Mg ND# [address]-18 Reviewed 06/20/2012 12:00 AM Depo-Medrol, Per 80 Mg ND#0902-0919-30 Reviewed 09/06/2012 12:00 AM N BLOCK INJ OCCIPITAL Reviewed 09/06/2012 12:00 AM Kenalog Hu-[address]-20 ANNA Reviewed 09/06/2012 12:00 AM X-RAY EXAM RIBS UNI 2 VIEWS Returned 09/26/2012 12:00 AM THER/PROPH/DIAG INJ SC/IM Reviewed 09/26/2012 12:00 AM Decadron, Per 1 Mg ND# [address]-28 Reviewed 09/26/2012 12:00 AM Depo-Medrol, Per 80 Mg ND#2959-6634-06 Reviewed 10/03/2012 12:00 AM URINALYSIS AUTO W/O SCOPE Reviewed 10/03/2012 12:00 AM THER/PROPH/DIAG INJ SC/IM Reviewed 10/03/2012 12:00 AM Toradol 60 Mg ND#6750-2327-94 Reviewed 10/03/2012 12:00 AM Phenergan, 25Mg ND#2625-3905-78 Reviewed 10/19/2012 12:00 AM N BLOCK INJ OCCIPITAL Reviewed 10/19/2012 12:00 AM Kenalog, Per 10 Mg [facility] [place]#4082-8265-66 Reviewed 10/19/2012 12:00 AM Toradol 30 Mg [facility] [place]#2826-6671-15 Reviewed 10/19/2012 12:00 AM THER/PROPH/DIAG INJ SC/IM Reviewed 10/31/2012 12:00 AM COMPLETE CBC W/AUTO DIFF WBC Returned 10/31/2012 12:00 AM COMPREHEN METABOLIC PANEL Returned 10/31/2012 12:00 AM LIPID PANEL Returned 11/03/2012 12:[address] THORAX W/O & W/DYE Returned 11/08/2012 12:00 AM N BLOCK INJ OCCIPITAL Reviewed 11/08/2012 12:00 AM Kenalog Cn-[address]-20 ANNA Reviewed 11/27/2012 12:00 AM COMPLETE CBC [...] Mg [facility] [place] [address]-25 Reviewed 01/25/2013 12:00 AM Depo-Medrol, Per 80 Mg [facility] [place]#2412-8333-70 Reviewed 01/26/2013 12:00 AM IMMUNOTHERAPY INJECTIONS Returned [...] 05/16/2013 12:00 AM Decadron, Per 1 Mg [facility] [place] [address]-46 Reviewed 05/16/2013 12:00 AM Depo-Medrol, Per 80 Mg [facility] [place]#8961-8552-78 Reviewed 05/31/2013 12:00 AM IMMUNOTHERAPY INJECTIONS Reviewed 06/08/2013 12:00 AM IMMUNOTHERAPY INJECTIONS Reviewed 06/14/2013 12:00 AM IMMUNOTHERAPY INJECTIONS Reviewed 06/28/2013 12:00 AM IMMUNOTHERAPY INJECTIONS Reviewed 07/12/2013 12:00 AM X-RAY EXAM RIBS UNI 2 VIEWS Returned 07/18/2013 12:00 AM Toradol 60 Mg [facility] [place]#1675-3531-94 Reviewed 07/18/2013 12:00 AM THER/PROPH/DIAG INJ SC/IM [...] Mg [facility] [place] [address]-42 Reviewed 09/14/2013 12:00 AM Depo-Medrol, Per 80 Mg [facility] [place]#4210-9656-96 Reviewed 09/20/2013 12:00 AM IMMUNOTHERAPY INJECTIONS Reviewed [...] INJ OCCIPITAL Reviewed 12/10/2009 12:00 AM Kenalog Ip-[address]-20 ANNA Reviewed 12/16/2009 12:00 AM HIV-1ANTIBODY Reviewed 12/16/2009 12:00 AM COMPLETE CBC W/AUTO DIFF WBC Reviewed 12/16/2009 12:00 AM METABOLIC PANEL TOTAL CA Reviewed 12/16/2009 12:00 AM Type and screen Reviewed 12/16/2009 12:00 AM PROTHROMBIN TIME Reviewed 12/16/2009 12:00 AM THROMBOPLASTIN TIME PARTIAL Reviewed 03/18/2010 12:00 AM DRAIN/INJ JOINT/BURSA W/O US Reviewed 03/18/2010 12:00 AM Kenalog Rn-[address]-20 ANNA Reviewed 11/21/2013 12:00 AM RADEX HAND MINIMUM 3 VIEWS Returned 06/03/2010 12:00 AM INJ TRIGGER POINT 1/2 MUSCL Reviewed 06/03/2010 12:00 AM Kenalog per 10Mg [facility]#[address]-16(Niall) Reviewed 12/05/2013 12:00 AM COMPLETE CBC W/AUTO [...] Reviewed 07/23/2010 12:00 AM Kenalog per 10Mg [facility]#[address]-87(Niall) Reviewed 2014 12:00 AM COMPLETE CBC W/AUTO [...] INJ OCCIPITAL Reviewed 10/01/2010 12:00 AM Quentin Ka-[address]-20 ANNA Reviewed 07/25/2014 12:00 AM THER/PROPH/DIAG INJ [...] Quant,IgM <0.80 RMSF , IgG, EIA Negative [facility] Spotted Fever,IgM 0.51 E. chaffeensis (HME) [...] 141 Influenza 04/24/2014 sanofi pasteur PMC Fluzone [id number] Intramuscular Left Upper Arm 02/27/2014 01/15/2014 141 Influenza 02/13/2015 sanofi pasteur PMC Fluzone [id number] Intramuscular Left Deltoid 02/13/2015 01/03/2015 140 Tdap 06/06/2015 [employer] SKB BOOSTRIX [id number] Intramuscular Left Deltoid 06/06/2015 07/23/2014 115 Influenza 03/18/2016 [facility] Fluzone [id number] Intramuscular Left Deltoid 03/17/2016 01/03/2015 141 History [...] of female genitalia Apr 02 2016 11:15AM Payers Insurance Name Company Name Plan Name Plan Number Policy Number Policy Group Number Start Date Medicare Part A Medicare RHC [id number] N/A [facility] - RHC - Community Plan of [facility] RHC Comm [id number] N/A Medicare Part A Medicare - Lab/Xray [id number] N/A Medicare Part B Medicare Of [place] [id number] Monday, February 28, 2000 [place] [employer] [place] [employer] [id number] Tuesday, November 10, 2009 Medicare Part A Medicare Part A [id number] N/A [place] [employer] - RHC [place] [employer] - RHC [id number] May [facility] Plan of [facility] Comm Plan of [id number] Wednesday, May 30, 2012 History of Encounters Visit Date Visit Type Provider 04/02/2016 Office visit Lena El CCO & PRESIDENT 04/02/2016 Office visit Heena Dumont MD 03/26/2016 Office visit Yesica Falcon CCO & PRESIDENT 03/17/2016 Office visit Heena Dumont MD 03/05/2016 Office visit Kaylynn Mendez CCO & PRESIDENT 02/16/2016 Office visit Heena Dumont MD 02/14/2016 Office visit Na Jones CCO & PRESIDENT 01/16/2016 Office visit Heena Dumont MD 12/16/2015 Office visit Heena Dumont MD 11/24/2015 Office visit Kaylynn Mendez CCO & PRESIDENT 11/18/2015 Office visit Heena Dumont MD 11/03/2015 Office visit Sundeep Russell CCO & PRESIDENT 10/20/2015 Office visit Kaylynn Mendez CCO & PRESIDENT 09/23/2015 Office visit Kaylynn Mendez CCO & PRESIDENT 09/16/[address] Pepe Figueroa MD 09/02/2015 Office visit Kaylynn Mendez CCO & PRESIDENT 09/01/2015 Office visit Kaylynn Walker CCO & PRESIDENT 07/30/2015 Office visit Heena Dumont MD 07/15/2015 Office visit Kaylynn Walker CCO & PRESIDENT 07/04/2015 Office visit Heena Dumont MD 06/06/2015 Office visit Heena Dumont MD 06/06/2015 Office visit Kaylynn Walker CCO & PRESIDENT 06/02/2015 Office visit Kaylynn Walker CCO & PRESIDENT 05/26/2015 Office visit Kaylynn Walker CCO & PRESIDENT 05/20/2015 Office visit Kaylynn Walker CCO & PRESIDENT 05/08/2015 Office visit Heena Dumont MD 05/06/2015 Office visit Kaylynn Walker CCO & PRESIDENT 04/29/2015 Office visit Kaylynn Walker CCO & PRESIDENT 03/27/2015 Voided Brittni Yanez CCO & PRESIDENT 03/21/2015 Office visit Heena Dumont MD 03/12/2015 Office visit Kaylynn Mendez CCO & PRESIDENT 02/26/2015 Office visit Brittni Yanez CCO & PRESIDENT 02/13/2015 Office visit Heena Dumont MD 01/15/2015 Office visit Brittni Yanez CCO & PRESIDENT 01/13/2015 Office visit Heena Dumont MD 01/08/[address] Carol Fowler MD 01/01/2015 Office visit Brittni Yanez CCO & PRESIDENT 12/13/2014 Office visit Heena Dumont MD 11/27/2014 Office visit Kaylynn Mendez CCO & PRESIDENT 11/14/2014 Office visit Heena Dumont MD 10/18/2014 Office visit Heena Dumont MD 10/17/2014 [facility] Eliseo Hoskins MD 10/09/2014 Office visit Heena Dumont MD 09/25/2014 Office visit Heena Dumont MD 09/17/2014 Office visit Kaylynn Mendez CCO & PRESIDENT 09/04/2014 Office visit Heena Dumont MD 08/28/2014 Office visit Kaylynn Mendez CCO & PRESIDENT 08/23/2014 [facility] Eliseo Hoskins MD 08/01/2014 Office visit Kaylynn Mendez CCO & PRESIDENT 07/29/2014 Office visit Heena Dumont MD 07/25/2014 Nurse visit Heena Dumont MD 07/17/2014 Office visit Kaylynn Mendez CCO & PRESIDENT 07/11/2014 Office visit Heena Dumont MD 07/01/2014 Office visit Heena Dumont MD 06/25/2014 Office visit Kaylynn Mendez CCO & PRESIDENT 06/12/2014 Office visit Kaylynn Mendez CCO & PRESIDENT 06/06/2014 Office visit Kaylynn Mendez CCO & PRESIDENT 05/27/2014 Office visit Heena Dumont MD 04/20/2014 Office visit Yesica Falcon CCO & PRESIDENT 03/29/2014 Office visit Na Jones CCO & PRESIDENT 03/15/2014 Office visit Heena Dumont MD 2014 Office visit Heena Dumont MD 2014 [facility] John Hoskins MD 02/27/2014 Nurse visit Heena Dumont MD 02/13/2014 Office visit Lena El CCO & PRESIDENT 02/07/2014 Office visit Heena Dumont MD 02/03/2014 Office visit Na Jones CCO & PRESIDENT 01/30/2014 Office visit Kaylynn Mendez CCO & PRESIDENT 01/24/2014 Office visit Sundeep Russell CCO & PRESIDENT 01/16/2014 Office visit Kaylynn Walker CCO & PRESIDENT 01/10/2014 Nurse visit Kaylynn Walker CCO & PRESIDENT 01/08/2014 Office visit Kaylynn Walker CCO & PRESIDENT 12/05/2013 Office visit Kaylynn Walker CCO & PRESIDENT 11/21/2013 Office visit Kaylynn Walker CCO & PRESIDENT 10/23/2013 Office visit Brittni Yanez CCO & PRESIDENT 10/17/2013 Nurse visit Heena Dumont MD 10/12/2013 Office visit Kaylynn Mendez CCO & PRESIDENT 10/02/2013 Office visit Heena Dumont MD 09/20/2013 Nurse visit Kaylynn Mendez CCO & PRESIDENT 09/20/2013 Voided Heena Dumont MD 09/14/2013 Office visit Kaylynn Walker CCO & PRESIDENT 09/05/2013 Office visit Sundeep Russell CCO & PRESIDENT 09/04/2013 Nurse visit Kaylynn Walker CCO & PRESIDENT 08/31/2013 Office visit Kaylynn Walker CCO & PRESIDENT 08/23/2013 Office visit Heena Dumont MD 08/10/2013 Office visit Kaylynn Walker CCO & PRESIDENT 07/25/2013 Office visit Kaylynn Walker CCO & PRESIDENT 07/18/2013 Office visit Kaylynn Walker CCO & PRESIDENT 07/12/2013 Office visit Kaylynn Walker CCO & PRESIDENT 06/28/2013 Nurse visit Kaylynn Walker CCO & PRESIDENT 06/14/2013 Nurse visit Kaylynn Walker CCO & PRESIDENT 06/08/2013 Nurse visit Kaylynn Walker CCO & PRESIDENT 05/31/2013 Nurse visit Chadd Norris DO 05/18/2013 Office visit Terese Davidson MD 05/16/2013 Office visit Kaylynn Walker CCO & PRESIDENT 05/09/2013 Office visit Kaylynn Walker CCO & PRESIDENT 04/29/2013 [facility] John Hoskins MD 04/25/2013 Nurse visit Kaylynn Walker CCO & PRESIDENT 04/17/2013 Office visit Kaylynn Walker CCO & PRESIDENT 04/03/2013 Nurse visit Kaylynn Walker CCO & PRESIDENT 04/03/2013 Office visit Terese Davidson MD 03/28/2013 Office visit Sundeep Russell CCO & PRESIDENT 03/21/2013 Office visit Kaylynn Mendez CCO & PRESIDENT 03/20/2013 Office visit Terese Davidson MD 03/14/2013 Nurse visit Kaylynn Mendze CCO & PRESIDENT 03/05/2013 Nurse visit Kaylynn Andrea CCO & PRESIDENT 02/19/2013 Office visit Terese Davidson MD 02/16/2013 Nurse visit Kaylynn Mendez CCO & PRESIDENT 02/09/2013 Office visit Sundeep Russell CCO & PRESIDENT 02/08/2013 Nurse visit Kaylynn Andrea CCO & PRESIDENT 02/01/2013 Nurse visit Kaylynn Walker CCO & PRESIDENT 01/26/2013 Nurse visit Sabrina Andrea 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 01/25/2013 Office visit Kaylynn Andrea CCO & PRESIDENT 01/22/2013 Office visit Yoan Castaneda MD 01/18/2013 Nurse visit Kaylynn Andrea CCO & PRESIDENT 01/11/2013 Nurse visit Kaylynn Walker CCO & PRESIDENT 01/05/2013 Nurse visit Kaylynn Andrea CCO & PRESIDENT 12/29/2012 Office visit Kaylynn Andrea CCO & PRESIDENT 11/27/2012 Office visit Kaylynn Mendez CCO & PRESIDENT 11/08/2012 Office visit Odell Tierney MD 11/08/2012 Voided Odell Tierney MD 11/07/2012 Office visit Kaylynn Mendez CCO & PRESIDENT 10/31/2012 [facility] John Hoskins MD 10/31/2012 Office visit Kaylynn Mendez CCO & PRESIDENT 10/19/2012 Office visit Genoveva Ayala CCO & PRESIDENT 10/10/2012 Office visit Kaylynn Mendez CCO & PRESIDENT 10/03/2012 Office visit Kaylynn Mendez CCO & PRESIDENT 09/26/2012 Office visit Kaylynn Mendez CCO & PRESIDENT 09/06/2012 Office visit Kaylynn Mendez CCO & PRESIDENT 09/06/2012 Office visit Odell Tierney MD 08/31/2012 Voided Kaylynn Mendez CCO & PRESIDENT 07/28/2012 Office visit Kaylynn Mendez CCO & PRESIDENT 07/27/2012 Office visit David Joyner DO 07/20/2012 [facility] David Joyner DO 07/13/2012 Hospital David Joyner DO 07/11/2012 Office visit Kaylynn Mendez CCO & PRESIDENT 06/27/2012 [facility] Odell Tierney MD 06/21/2012 Office visit David Joyner DO 06/21/2012 Office visit Odell Tierney MD 06/20/2012 Office visit Brittni Yanez CCO & PRESIDENT 06/06/2012 Office visit Odell Tierney MD 05/03/2012 Office visit Kaylynn Mendez CCO & PRESIDENT 04/28/2012 Office visit Brittni Yanez CCO & PRESIDENT 04/11/2012 Office visit Kaylynn Mendez CCO & PRESIDENT 04/06/2012 Hospital John Hoskins MD 03/30/2012 Office visit Kaylynn Mendez CCO & PRESIDENT 03/15/2012 Office visit Kaylynn Mendez CCO & PRESIDENT 03/15/2012 Office visit Odell Tierney MD 02/09/2012 Office visit Kaylynn Mendez CCO & PRESIDENT 12/23/2011 Office visit Kaylynn Walker CCO & PRESIDENT 11/02/2011 Office visit Kaylynn Walker CCO & PRESIDENT 10/14/2011 Office visit Kaylynn Walker CCO & PRESIDENT 09/27/2011 Office visit Kaylynn Walker CCO & PRESIDENT 08/19/2011 Hospital John Hoskins MD 08/18/2011 Hospital John Hoskins MD 08/18/2011 Office visit Kaylynn Mendez CCO & PRESIDENT 08/02/2011 Office visit Kaylynn Mendez CCO & PRESIDENT 07/08/2011 Office visit Kaylynn Mendez CCO & PRESIDENT 07/05/2011 Office visit Odell Tierney MD 06/15/2011 Office visit Kaylynn Mendez CCO & PRESIDENT 05/14/2011 Office visit Kaylynn Andrea CCO & PRESIDENT 05/11/2011 Office visit Odell Tierney MD 04/28/2011 Office visit Kaylynn Mendez CCO & PRESIDENT 03/02/2011 Office visit Chadd Norris DO 02/17/2011 [...]
--- OUTSIDE RECORDS SUMMARY | 2018-05-09 19:15 | XMS REPORT ---
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 jhghujve-ilnackxet-ME 3.5-10,000-1 mg/mL-unit/mL-% otic drops,suspension 201607/23/2016 instill 4 [...] route BID x 2 weeks. Startes on 5-17-15 Spiriva with HandiHaler 18 mcg inhalation capsule, [...] HC BMI BSA BMI Percentile O2 Sat(%) 08/26/2016 3:05:00 PM 124 mmHg 80 mmHg [...] Reviewed 04/28/2011 12:00 AM Decadron 1 mg NDC#[id number] (Jr) Reviewed 04/28/2011 12:00 AM Depo-Medrol 80 mg NDC#[id number]-Azlhbpqa Reviewed 09/02/2015 12:00 AM Toradol 60 Mg NDC#5279-8573-92 Reviewed 09/02/2015 12:00 AM Phenergan, Up to 50 Mg RHC Medicaid Reviewed 09/16/2015 12:00 AM Toradol 60 Mg NDC#8012-6462-60 Reviewed 09/16/2015 12:00 AM Phenergan Up to 50 mg RHC Medicare Reviewed 05/11/2011 12:00 AM N BLOCK INJ OCCIPITAL Reviewed 05/11/2011 12:[address]-[address]-20 ANNA Reviewed 11/13/2015 12:00 AM ASSAY OF [...] SC/IM Reviewed 07/08/2011 12:00 AM Toradol,15mg [facility]#[id number], [place] Reviewed 07/08/2011 12:00 AM Phenergan 50 Mg Im [facility] 9006-6728-94 [facility] Reviewed 01/21/2016 12:00 AM ECG MONIT/REPRT UP TO 48 HRS Returned 08/02/2011 12:00 AM THER/PROPH/DIAG INJ SC/IM Reviewed 08/02/2011 12:00 AM Decadron 1 mg [facility]#[id number] (Jr) Reviewed 08/02/2011 12:00 AM Depo-Medrol 80 mg [facility]#[id number]-Rtcrgnko Reviewed 03/05/2016 12:00 AM COMPLETE CBC W/AUTO DIFF WBC Returned 03/05/2016 12:00 AM STREP A ASSAY W/OPTIC Returned 03/05/2016 12:00 AM C-REACTIVE PROTEIN Returned 03/18/2016 12:00 AM [facility] [address] MEDICARE - flu vaccine administration Reviewed 03/18/2016 [...] Reviewed 09/27/2011 12:00 AM Depo-Medrol 80 mg NDC#[id number]-Qgyawwym Reviewed 07/06/2016 12:00 AM CHEST X-RAY 4/> VIEWS Returned 10/14/2011 12:00 AM X-RAY EXAM OF ABDOMEN Reviewed 10/14/2011 12:00 AM URINALYSIS AUTO W/O SCOPE Reviewed 12/23/2011 12:00 AM THER/PROPH/DIAG INJ SC/IM Reviewed 12/23/2011 12:00 AM Decadron 1 mg NDC#[id number] (Jr) Reviewed 12/23/2011 12:00 AM Depo-Medrol 80 mg ND#[id number]-Fngfsuup Reviewed 02/09/2012 12:00 AM THER/PROPH/DIAG INJ SC/IM Reviewed 02/09/2012 12:00 AM Decadron 1 mg ND#[id number] (Jr) Reviewed 02/09/2012 12:00 AM Depo-Medrol 80 mg NDC#[id number]-Jaxwitpd Reviewed 03/15/2012 12:00 AM N BLOCK INJ OCCIPITAL Reviewed 03/15/2012 12:00 AM Kenalog Vq-[address]-20 ANNA Reviewed 04/11/2012 12:00 AM COMPLETE CBC W/AUTO DIFF WBC Reviewed 04/11/2012 12:00 AM COMPREHEN METABOLIC PANEL Reviewed 04/11/2012 12:00 AM LIPID PANEL Reviewed 04/11/2012 12:00 AM ASSAY THYROID STIM HORMONE Reviewed 06/20/2012 12:00 AM THER/PROPH/DIAG INJ SC/IM Reviewed 06/20/2012 12:00 AM Decadron, Per 1 Mg ND# [address]-85 Reviewed 06/20/2012 12:00 AM Depo-Medrol, Per 80 Mg ND#4639-1724-64 Reviewed 09/06/2012 12:00 AM N BLOCK INJ OCCIPITAL Reviewed 09/06/2012 12:00 AM Kenalog El-[address]-20 ANNA Reviewed 09/06/2012 12:00 AM X-RAY EXAM RIBS UNI 2 VIEWS Reviewed 09/26/2012 12:00 AM THER/PROPH/DIAG INJ SC/IM Reviewed 09/26/2012 12:00 AM Decadron, Per 1 Mg [facility]# [address]-87 Reviewed 09/26/2012 12:00 AM Depo-Medrol, Per 80 Mg [facility]#1137-3083-32 Reviewed 10/03/2012 12:00 AM URINALYSIS AUTO W/O SCOPE Reviewed 10/03/2012 12:00 AM THER/PROPH/DIAG INJ SC/IM Reviewed 10/03/2012 12:00 AM Toradol 60 Mg [facility]#8786-6099-10 Reviewed 10/03/2012 12:00 AM Phenergan, 25Mg [facility]#0448-9010-12 Reviewed 10/19/2012 12:00 AM N BLOCK INJ OCCIPITAL Reviewed 10/19/2012 12:00 AM Kenalog, Per 10 Mg [facility]#7976-6022-97 Reviewed 10/19/2012 12:00 AM Toradol 30 Mg [facility]#1714-4674-03 Reviewed 10/19/2012 12:00 AM THER/PROPH/DIAG INJ SC/IM Reviewed 10/31/2012 12:00 AM COMPLETE CBC W/AUTO DIFF WBC Reviewed 10/31/2012 12:00 AM COMPREHEN METABOLIC PANEL Reviewed 10/31/2012 12:00 AM LIPID PANEL Reviewed 11/03/2012 12:[address] THORAX W/O & W/DYE Reviewed 11/08/2012 12:00 AM N BLOCK INJ OCCIPITAL Reviewed 11/08/2012 12:00 AM Kenalog Zh-[address]-20 ANNA Reviewed 11/27/2012 12:00 AM COMPLETE CBC [...] 12:00 AM Decadron, Per 1 Mg [facility]# [address]-22 Reviewed 01/25/2013 12:00 AM Depo-Medrol, Per 80 Mg [facility]#9075-9734-91 Reviewed 01/26/2013 12:00 AM IMMUNOTHERAPY INJECTIONS Reviewed [...] 12:00 AM Decadron, Per 1 Mg [facility]# [address]-17 Reviewed 05/16/2013 12:00 AM Depo-Medrol, Per 80 Mg [facility]#4501-0680-69 Reviewed 05/31/2013 12:00 AM IMMUNOTHERAPY INJECTIONS Reviewed 06/08/2013 12:00 AM IMMUNOTHERAPY INJECTIONS Reviewed 06/14/2013 12:00 AM IMMUNOTHERAPY INJECTIONS Reviewed 06/28/2013 12:00 AM IMMUNOTHERAPY INJECTIONS Reviewed 07/12/2013 12:00 AM X-RAY EXAM RIBS UNI 2 VIEWS Reviewed 07/18/2013 12:00 AM Toradol 60 Mg [facility]#3812-3853-82 Reviewed 07/18/2013 12:00 AM THER/PROPH/DIAG INJ SC/IM Reviewed 08/23/2013 12:00 AM COMPLETE CBC W/AUTO DIFF WBC Reviewed 08/23/2013 12:00 AM COMPREHEN METABOLIC PANEL Reviewed 08/23/2013 12:00 AM LIPID PANEL Reviewed 08/31/2013 12:00 AM X-RAY EXAM OF LOWER LEG Reviewed 09/04/2013 12:00 AM IMMUNOTHERAPY INJECTIONS Reviewed 09/14/2013 12:00 AM THER/PROPH/DIAG INJ SC/IM Reviewed 09/14/2013 12:00 AM Decadron, Per 1 Mg [facility]# [address]-10 Reviewed 09/14/2013 12:00 AM Depo-Medrol, Per 80 Mg [facility]#2002-8690-81 Reviewed 09/20/2013 12:00 AM IMMUNOTHERAPY INJECTIONS Reviewed [...] INJ OCCIPITAL Reviewed 12/10/2009 12:00 AM Kenalog Vv-[address]-20 ANNA Reviewed 12/16/2009 12:00 AM HIV-1ANTIBODY Reviewed 12/16/2009 12:00 AM COMPLETE CBC W/AUTO DIFF WBC Reviewed 12/16/2009 12:00 AM METABOLIC PANEL TOTAL CA Reviewed 12/16/2009 12:00 AM Type and screen Reviewed 12/16/2009 12:00 AM PROTHROMBIN TIME Reviewed 12/16/2009 12:00 AM THROMBOPLASTIN TIME PARTIAL Reviewed 03/18/2010 12:00 AM DRAIN/INJ JOINT/BURSA W/O US Reviewed 03/18/2010 12:00 AM Kenalog Ga-[address]-20 ANNA Reviewed 11/21/2013 12:00 AM RADEX HAND MINIMUM 3 VIEWS Reviewed 06/03/2010 12:00 AM INJ TRIGGER POINT 1/2 MUSCL Reviewed 06/03/2010 12:00 AM Kenalog per 10Mg Im-[facility]#[address]-21(Niall) Reviewed 12/05/2013 12:00 AM COMPLETE CBC W/AUTO [...] 12:00 AM Kenalog per 10Mg [facility]#[address]-18(Niall) Reviewed 2014 12:00 AM COMPLETE CBC W/AUTO [...] INJ OCCIPITAL Reviewed 10/01/2010 12:00 AM Kenalog Vr-[address]-20 ANNA Reviewed 07/25/2014 12:00 AM THER/PROPH/DIAG INJ [...] Quant,IgM <0.80 RMSF , IgG, EIA Negative [facility] Spotted Fever,IgM 0.51 E. chaffeensis [...] 141 Influenza 04/24/2014 sanofi pasteur PMC Fluzone [id number] Intramuscular Left Upper Arm 02/27/2014 01/15/2014 141 Influenza 02/13/2015 sanofi pasteur PMC Fluzone [id number] Intramuscular Left Deltoid 02/13/2015 01/03/2015 140 Tdap 06/06/2015 [employer] SKB BOOSTRIX [id number] Intramuscular Left Deltoid 06/06/2015 07/23/2014 115 Influenza 03/18/2016 sanofi pasteur PMC Fluzone [id number] Intramuscular Left Deltoid 03/17/2016 01/03/2015 141 History [...] Number Start Date Medicare RHC Medicare RHC [id number] N/A [facility] RHC Comm [id number] N/A Medicare Part A Medicare - Lab/Xray [id number] N/A Medicare Part B Medicare Of [place] [id number] Monday, February 28, 2000 [place] [facility] [place] [facility] [place] [id number] Tuesday, November 10, 2009 Medicare Part A Medicare Part A [id number] N/A [place] [employer] - RHC [place] [employer] - RHC [id number] May [facility] Comm Plan of [id number] Wednesday, May 30, 2012 History of Encounters Visit Date Visit Type Provider 08/27/2016 Office visit Riccardo Cardoza MD 08/26/2016 Office visit Heena Dumont MD 07/09/2016 Office visit Riccardo Cardoza MD 07/06/2016 Office visit Heena Dumont MD 06/18/2016 Office visit Kaylynn Mendez APRN 06/07/2016 Office visit Sundeep Russell APRN 06/04/2016 Office visit Heena Dumont MD 05/13/2016 Office visit Heena Dumont MD 05/03/2016 Office visit Heena Dumont MD 04/26/2016 Office visit Kaylynn Mendez APRN 04/14/2016 Office visit Heena Dumont MD 04/13/2016 Office visit Kaylynn Mendez APRN 04/02/2016 Office visit Lena El DAIRY TECHNOLOGIST 04/02/2016 Office visit Heena Dumont MD 03/26/2016 Office visit Yesica Falcon DAIRY TECHNOLOGIST 03/17/2016 Office visit Heena Dumont MD 03/05/2016 Office visit Kaylynn Mendez DAIRY TECHNOLOGIST 02/16/2016 Office visit Heena Dumont MD 02/14/2016 Office visit Na Jones DAIRY TECHNOLOGIST 01/16/2016 Office visit Heena Dumont MD 12/16/2015 Office visit Heena Dumont MD 11/24/2015 Office visit Kaylynn Mendez DAIRY TECHNOLOGIST 11/18/2015 Office visit Heena Dumont MD 11/03/2015 Office visit Sundeep Russell DAIRY TECHNOLOGIST 10/20/2015 Office visit Kaylynn Mendez DAIRY TECHNOLOGIST 09/23/2015 Office visit Kaylynn Mendez DAIRY TECHNOLOGIST 09/16/[address] Pepe Figueroa MD 09/02/2015 Office visit Kaylynn Mendez DAIRY TECHNOLOGIST 09/01/2015 Office visit Kaylynn Mendez DAIRY TECHNOLOGIST 07/30/2015 Office visit Heena Dumont MD 07/15/2015 Office visit Kaylynn Mendez DAIRY TECHNOLOGIST 07/04/2015 Office visit Heena Dumont MD 06/06/2015 Office visit Heena Dumont MD 06/06/2015 Office visit Kaylynn Mendez DAIRY TECHNOLOGIST 06/02/2015 Office visit Kaylynn Mendez DAIRY TECHNOLOGIST 05/26/2015 Office visit Kaylynn Mendez DAIRY TECHNOLOGIST 05/20/2015 Office visit Kaylynn Mendez DAIRY TECHNOLOGIST 05/08/2015 Office visit Heena Dumont MD 05/06/2015 Office visit Kaylynn Mendez DAIRY TECHNOLOGIST 04/29/2015 Office visit Kaylynn Mendez DAIRY TECHNOLOGIST 03/27/2015 Voided Brittni Yanez DAIRY TECHNOLOGIST 03/21/2015 Office visit Heena Dumont MD 03/12/2015 Office visit Kaylynn Mendez DAIRY TECHNOLOGIST 02/26/2015 Office visit Brittni Yanez DAIRY TECHNOLOGIST 02/13/2015 Office visit Heena Dumont MD 01/15/2015 Office visit Brittni Yanez DAIRY TECHNOLOGIST 01/13/2015 Office visit Heena Dumont MD 01/08/[address] Carol Fowler MD 01/01/2015 Office visit Brittni Yanez DAIRY TECHNOLOGIST 12/13/2014 Office visit Heena Dumont MD 11/27/2014 Office visit Kaylynn Mendez DAIRY TECHNOLOGIST 11/14/2014 Office visit Heena Dumont MD 10/18/2014 Office visit Heena Dumont MD 10/17/2014 [facility] John Hoskins MD 10/09/2014 Office visit Heena Dumont MD 09/25/2014 Office visit Heena Dumont MD 09/17/2014 Office visit Kaylynn Mendez DAIRY TECHNOLOGIST 09/04/2014 Office visit Heena Dumont MD 08/28/2014 Office visit Kaylynn Mendez DAIRY TECHNOLOGIST 08/23/2014 [facility] John Hoskins MD 08/01/2014 Office visit Kaylynn Mendez DAIRY TECHNOLOGIST 07/29/2014 Office visit Heena Dumont MD 07/25/2014 Nurse visit Heena Dumont MD 07/17/2014 Office visit Kaylynn Mendez DAIRY TECHNOLOGIST 07/11/2014 Office visit Heena Dumont MD 07/01/2014 Office visit Heena Dumont MD 06/25/2014 Office visit Kaylynn Mendez DAIRY TECHNOLOGIST 06/12/2014 Office visit Kaylynn Mendez DAIRY TECHNOLOGIST 06/06/2014 Office visit Kaylynn Mendez DAIRY TECHNOLOGIST 05/27/2014 Office visit Heena Dumont MD 04/20/2014 Office visit Yesica Falcon DAIRY TECHNOLOGIST 03/29/2014 Office visit Na Jones DAIRY TECHNOLOGIST 03/15/2014 Office visit Heena Dumont MD 2014 Office visit Heena Dumont MD 2014 [facility] John Hoskins MD 02/27/2014 Nurse visit Heena Dumont MD 02/13/2014 Office visit Lena El DAIRY TECHNOLOGIST 02/07/2014 Office visit Heena Dumont MD 02/03/2014 Office visit Na Jones DAIRY TECHNOLOGIST 01/30/2014 Office visit Kaylynn Mendez DAIRY TECHNOLOGIST 01/24/2014 Office visit Sundeep Russell DAIRY TECHNOLOGIST 01/16/2014 Office visit Kaylynn Mendez DAIRY TECHNOLOGIST 01/10/2014 Nurse visit Kaylynn Mendez DAIRY TECHNOLOGIST 01/08/2014 Office visit Kaylynn Mendez DAIRY TECHNOLOGIST 12/05/2013 Office visit Kaylynn Mendez DAIRY TECHNOLOGIST 11/21/2013 Office visit Kaylynn Mendez DAIRY TECHNOLOGIST 10/23/2013 Office visit Brittni Yanez DAIRY TECHNOLOGIST 10/17/2013 Nurse visit Heena Dumont MD 10/12/2013 Office visit Kaylynn Mendez DAIRY TECHNOLOGIST 10/02/2013 Office visit Heena Dumont MD 09/20/2013 Nurse visit Kaylynn Mendez DAIRY TECHNOLOGIST 09/20/2013 Voided Heena Dumont MD 09/14/2013 Office visit Kaylynn Mendez DAIRY TECHNOLOGIST 09/05/2013 Office visit Sundeep Russell DAIRY TECHNOLOGIST 09/04/2013 Nurse visit Kaylynn Walker DAIRY TECHNOLOGIST 08/31/2013 Office visit Kaylynn Walker DAIRY TECHNOLOGIST 08/23/2013 Office visit Heena Dumont MD 08/10/2013 Office visit Kaylynn Walker DAIRY TECHNOLOGIST 07/25/2013 Office visit Kaylynn Walker DAIRY TECHNOLOGIST 07/18/2013 Office visit Kaylynn Walker DAIRY TECHNOLOGIST 07/12/2013 Office visit Kaylynn Walker DAIRY TECHNOLOGIST 06/28/2013 Nurse visit Kaylynn Walker DAIRY TECHNOLOGIST 06/14/2013 Nurse visit Kaylynn Walker DAIRY TECHNOLOGIST 06/08/2013 Nurse visit Kaylynn Walker DAIRY TECHNOLOGIST 05/31/2013 Nurse visit Chadd Norris DO 05/18/2013 Office visit Terese Davidson MD 05/16/2013 Office visit Kaylynn Walker DAIRY TECHNOLOGIST 05/09/2013 Office visit Kaylynn Walker DAIRY TECHNOLOGIST 04/29/2013 [facility] John Hoskins MD 04/25/2013 Nurse visit Kaylynn Walker DAIRY TECHNOLOGIST 04/17/2013 Office visit Kaylynn Walker DAIRY TECHNOLOGIST 04/03/2013 Nurse visit Kaylynn Walker DAIRY TECHNOLOGIST 04/03/2013 Office visit Terese Davidson MD 03/28/2013 Office visit Sundepe Russell DAIRY TECHNOLOGIST 03/21/2013 Office visit Kaylynn Mendez DAIRY TECHNOLOGIST 03/20/2013 Office visit Terese Davidson MD 03/14/2013 Nurse visit Kaylynn Walker DAIRY TECHNOLOGIST 03/05/2013 Nurse visit Kaylynn Walker DAIRY TECHNOLOGIST 02/19/2013 Office visit Terese Davidson MD 02/16/2013 Nurse visit Kaylynn Walker DAIRY TECHNOLOGIST 02/09/2013 Office visit Sundeep Russell DAIRY TECHNOLOGIST 02/08/2013 Nurse visit Kaylynn Walker DAIRY TECHNOLOGIST 02/01/2013 Nurse visit Kaylynn Walker DAIRY TECHNOLOGIST 01/26/2013 Nurse visit Sabrina Mendez HOUSE MOTHER 01/25/2013 Office visit Kaylynn Walker DAIRY TECHNOLOGIST 01/22/2013 Office visit Yoan Castaneda MD 01/18/2013 Nurse visit Kaylynn Walker DAIRY TECHNOLOGIST 01/11/2013 Nurse visit Kaylynn Walker DAIRY TECHNOLOGIST 01/05/2013 Nurse visit Kaylynn Walker DAIRY TECHNOLOGIST 12/29/2012 Office visit Kaylynn Walker DAIRY TECHNOLOGIST 11/27/2012 Office visit Kaylynn Mendez DAIRY TECHNOLOGIST 11/08/2012 Office visit Odell Tierney MD 11/08/2012 Voided Odell Tierney MD 11/07/2012 Office visit Kaylynn Mendez DAIRY TECHNOLOGIST 10/31/2012 [facility] John Hoskins MD 10/31/2012 Office visit Kaylynn Walker DAIRY TECHNOLOGIST 10/19/2012 Office visit Genoveva Ayala DAIRY TECHNOLOGIST 10/10/2012 Office visit Kaylynn Walker DAIRY TECHNOLOGIST 10/03/2012 Office visit Kaylynn Walker DAIRY TECHNOLOGIST 09/26/2012 Office visit Kaylynn Mendez DAIRY TECHNOLOGIST 09/06/2012 Office visit Kaylynn Mendez DAIRY TECHNOLOGIST 09/06/2012 Office visit Odell Tierney MD 08/31/2012 Voided Kaylynn Mendez DAIRY TECHNOLOGIST 07/28/2012 Office visit Kaylynn Mendez DAIRY TECHNOLOGIST 07/27/2012 Office visit David Ar DO 07/20/2012 Hospital David Jazieluman DO 07/13/2012 Hospital David Jazieluman DO 07/11/2012 Office visit Kaylynn Mendez DAIRY TECHNOLOGIST 06/27/2012 [facility] Odell Tierney MD 06/21/2012 Office visit David Joyner DO 06/21/2012 Office visit Odell Tierney MD 06/20/2012 Office visit Brittni Yanez DAIRY TECHNOLOGIST 06/06/2012 Office visit Odell Tierney MD 05/03/2012 Office visit Kaylynn Mendez DAIRY TECHNOLOGIST 04/28/2012 Office visit Brittni Yanez DAIRY TECHNOLOGIST 04/11/2012 Office visit Kaylynn Mendez DAIRY TECHNOLOGIST 04/06/2012 [facility] John Hoskins MD 03/30/2012 Office visit Kaylynn Mendez DAIRY TECHNOLOGIST 03/15/2012 Office visit Kaylynn Mendez DAIRY TECHNOLOGIST 03/15/2012 Office visit Odell Tierney MD 02/09/2012 Office visit Kaylynn Mendez DAIRY TECHNOLOGIST 12/23/2011 Office visit Kaylynn Mendez DAIRY TECHNOLOGIST 11/02/2011 Office visit Kaylynn Mendez DAIRY TECHNOLOGIST 10/14/2011 Office visit Kaylynn Mendez DAIRY TECHNOLOGIST 09/27/2011 Office visit Kaylynn Mendez DAIRY TECHNOLOGIST 08/19/2011 Hospital John Hoskins MD 08/18/2011 [facility] John Hoskins MD 08/18/2011 Office visit Kaylynn Mendez DAIRY TECHNOLOGIST 08/02/2011 Office visit Kaylynn Mendez DAIRY TECHNOLOGIST 07/08/2011 Office visit Kaylynn Mendez DAIRY TECHNOLOGIST 07/05/2011 Office visit Odell Tierney MD 06/15/2011 Office visit Kaylynn Mendez DAIRY TECHNOLOGIST 05/14/2011 Office visit Kaylynn Mendez DAIRY TECHNOLOGIST 05/11/2011 Office visit Odell Tierney MD 04/28/2011 Office visit Kaylynn Mendez DAIRY TECHNOLOGIST 03/02/2011 Office visit Chadd Norris DO 02/17/2011 Office visit Chadd Norris DO 01/19/2011 Office visit Oedll Tierney MD 12/16/2010 Office visit Odell Tierney [...]
--- OUTSIDE RECORDS SUMMARY | 2018-05-09 19:20 | XMS REPORT ---
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 Name Role Phone Heena Dumont PCP Allergies [...] gauge miscellaneous misc 08/21/2014 use as directed Invokana 100 mg oral tablet take 1 [...] 30 DAYS hydrocodone-acetaminophen 10-325 mg oral tablet 01/02/2016 02/01/2016 take 1 tablet by oral route every 8 hours for 30 days Printing again due to printer error atorvastatin 40 mg oral tablet take 1 tablet (40 mg) by oral route once daily metoclopramide HCl 5 mg oral tablet take 1 tab by oral route 4 times per day 30 minutes before meals and at bedtime metronidazole 250 mg oral tablet take 1 tablet (250 mg) by oral route 4 times per day Name Start [...] a day as needed for 30 days hbhlnsne-gsykpnizz-PQ 3.5-10,000-1 mg/mL-unit/mL-% otic drops,suspension 201401/08/2015 instill 4 [...] HC BMI BSA BMI Percentile O2 Sat(%) 01/16/2016 10:53:00 AM 120 mmHg 80 mmHg [...] 04/28/2011 12:00 AM Decadron 1 mg [facility]#[id number] (Jr) Reviewed 04/28/2011 12:00 AM Depo-Medrol 80 mg ND#[id number]-Kgqoyvkg Reviewed 09/02/2015 12:00 AM Toradol 60 Mg ND#5970-1481-60 Reviewed 09/02/2015 12:00 AM Phenergan, Up to 50 Mg [facility] Medicaid Reviewed 09/16/2015 12:00 AM Toradol 60 Mg ND#2930-5778-45 Reviewed 09/16/2015 12:00 AM Phenergan Up to 50 mg [facility] Medicare Reviewed 05/11/2011 12:00 AM N BLOCK INJ OCCIPITAL Reviewed 05/11/2011 12:00 AM Kenalog Ad-[address]-20 ANNA Reviewed 11/13/2015 12:00 AM ASSAY OF [...] INJ SC/IM Reviewed 07/08/2011 12:00 AM Toradol,15mg NDC#[id number], Hetmejiaer Reviewed 07/08/2011 12:00 AM Phenergan 50 Mg Im Ndc 3048-6257-46 [place] Reviewed 08/02/2011 12:00 AM THER/PROPH/DIAG INJ SC/IM Reviewed 08/02/2011 12:00 AM Decadron 1 mg NDC#19054913129 (Jr) Reviewed 08/02/2011 12:00 AM Depo-Medrol 80 mg NDC#[id number]-Kklrrgym Reviewed 09/27/2011 12:00 AM THER/PROPH/DIAG INJ SC/IM Reviewed 09/27/2011 12:00 AM Depo-Medrol 80 mg NDC#[id number]-Qrspwfuc Reviewed 10/14/2011 12:00 AM X-RAY EXAM OF ABDOMEN Returned 10/14/2011 12:00 AM URINALYSIS AUTO W/O SCOPE Reviewed 12/23/2011 12:00 AM THER/PROPH/DIAG INJ SC/IM Reviewed 12/23/2011 12:00 AM Decadron 1 mg NDC#18116609621 (Jr) Reviewed 12/23/2011 12:00 AM Depo-Medrol 80 mg NDC#[id number]-Pjkhziun Reviewed 02/09/2012 12:00 AM THER/PROPH/DIAG INJ SC/IM Reviewed 02/09/2012 12:00 AM Decadron 1 mg NDC#38490000928 (Jr) Reviewed 02/09/2012 12:00 AM Depo-Medrol 80 mg NDC#[id number]-Jkdgbllo Reviewed 03/15/2012 12:00 AM N BLOCK INJ OCCIPITAL Reviewed 03/15/2012 12:00 AM Kenalog Kk-[address]-20 ANNA Reviewed 04/11/2012 12:00 AM COMPLETE CBC W/AUTO DIFF WBC Returned 04/11/2012 12:00 AM COMPREHEN METABOLIC PANEL Returned 04/11/2012 12:00 AM LIPID PANEL Returned 04/11/2012 12:00 AM ASSAY THYROID STIM HORMONE Returned 06/20/2012 12:00 AM THER/PROPH/DIAG INJ SC/IM Reviewed 06/20/2012 12:00 AM Decadron, Per 1 Mg ND# [address]-73 Reviewed 06/20/2012 12:00 AM Depo-Medrol, Per 80 Mg NDC#9455-3903-14 Reviewed 09/06/2012 12:00 AM N BLOCK INJ OCCIPITAL Reviewed 09/06/2012 12:00 AM Kenalog Yh-[address]-20 ANNA Reviewed 09/06/2012 12:00 AM X-RAY EXAM RIBS UNI 2 VIEWS Returned 09/26/2012 12:00 AM THER/PROPH/DIAG INJ SC/IM Reviewed 09/26/2012 12:00 AM Decadron, Per 1 Mg ND# [address]-47 Reviewed 09/26/2012 12:00 AM Depo-Medrol, Per 80 Mg NDC#5316-0501-20 Reviewed 10/03/2012 12:00 AM URINALYSIS AUTO W/O SCOPE Reviewed 10/03/2012 12:00 AM THER/PROPH/DIAG INJ SC/IM Reviewed 10/03/2012 12:00 AM Toradol 60 Mg NDC#3317-6143-03 Reviewed 10/03/2012 12:00 AM Phenergan, 25Mg ND#7996-6822-44 Reviewed 10/19/2012 12:00 AM N BLOCK INJ OCCIPITAL Reviewed 10/19/2012 12:00 AM Kenalog, Per 10 Mg ND#0686-0691-50 Reviewed 10/19/2012 12:00 AM Toradol 30 Mg NDC#9494-4814-54 Reviewed 10/19/2012 12:00 AM THER/PROPH/DIAG INJ SC/IM Reviewed 10/31/2012 12:00 AM COMPLETE CBC W/AUTO DIFF WBC Returned 10/31/2012 12:00 AM COMPREHEN METABOLIC PANEL Returned 10/31/2012 12:00 AM LIPID PANEL Returned 11/03/2012 12:[address] THORAX W/O & W/DYE Returned 11/08/2012 12:00 AM N BLOCK INJ OCCIPITAL Reviewed 11/08/2012 12:00 AM Kenalog Xg-47[address]-1971-20 ANNA Reviewed 11/27/2012 12:00 AM COMPLETE CBC [...] 12:00 AM Decadron, Per 1 Mg [facility]# [address]-57 Reviewed 01/25/2013 12:00 AM Depo-Medrol, Per 80 Mg [facility]#8461-5997-37 Reviewed 01/26/2013 12:00 AM IMMUNOTHERAPY INJECTIONS Returned [...] 12:00 AM Decadron, Per 1 Mg NDC# [address]-13 Reviewed 05/16/2013 12:00 AM Depo-Medrol, Per 80 Mg [facility]#4226-5927-57 Reviewed 05/31/2013 12:00 AM IMMUNOTHERAPY INJECTIONS Reviewed 06/08/2013 12:00 AM IMMUNOTHERAPY INJECTIONS Reviewed 06/14/2013 12:00 AM IMMUNOTHERAPY INJECTIONS Reviewed 06/28/2013 12:00 AM IMMUNOTHERAPY INJECTIONS Reviewed 07/12/2013 12:00 AM X-RAY EXAM RIBS UNI 2 VIEWS Returned 07/18/2013 12:00 AM Toradol 60 Mg [facility]#5403-4072-45 Reviewed 07/18/2013 12:00 AM THER/PROPH/DIAG INJ SC/IM Reviewed 08/23/2013 12:00 AM COMPLETE CBC W/AUTO DIFF WBC Reviewed 08/23/2013 12:00 AM COMPREHEN METABOLIC PANEL Reviewed 08/23/2013 12:00 AM LIPID PANEL Reviewed 08/31/2013 12:00 AM X-RAY EXAM OF LOWER LEG Returned 09/04/2013 12:00 AM IMMUNOTHERAPY INJECTIONS Reviewed 09/14/2013 12:00 AM THER/PROPH/DIAG INJ SC/IM Reviewed 09/14/2013 12:00 AM Decadron, Per 1 Mg [facility]# [address]-74 Reviewed 09/14/2013 12:00 AM Depo-Medrol, Per 80 Mg [facility]#0312-8952-52 Reviewed 09/20/2013 12:00 AM IMMUNOTHERAPY INJECTIONS Reviewed [...] INJ OCCIPITAL Reviewed 12/10/2009 12:00 AM Kenalog Bz-[address]-20 ANNA Reviewed 12/16/2009 12:00 AM HIV-1ANTIBODY Reviewed 12/16/2009 12:00 AM COMPLETE CBC W/AUTO DIFF WBC Reviewed 12/16/2009 12:00 AM METABOLIC PANEL TOTAL CA Reviewed 12/16/2009 12:00 AM Type and screen Reviewed 12/16/2009 12:00 AM PROTHROMBIN TIME Reviewed 12/16/2009 12:00 AM THROMBOPLASTIN TIME PARTIAL Reviewed 03/18/2010 12:00 AM DRAIN/INJ JOINT/BURSA W/O US Reviewed 03/18/2010 12:00 AM Kenalog Wi-[address]-20 ANNA Reviewed 11/21/2013 12:00 AM RADEX HAND MINIMUM 3 VIEWS Returned 06/03/2010 12:00 AM INJ TRIGGER POINT 1/2 MUSCL Reviewed 06/03/2010 12:00 AM Kenalog per 10Mg Im-Nd#[address]-80(Niall) Reviewed 12/05/2013 12:00 AM COMPLETE CBC W/AUTO [...] Reviewed 07/23/2010 12:00 AM Kenalog per 10Mg Im-Ndc#[address]-26(Niall) Reviewed 2014 12:00 AM COMPLETE CBC W/AUTO [...] INJ OCCIPITAL Reviewed 10/01/2010 12:00 AM Kenalog Lp-[address]-20 ANNA Reviewed 07/25/2014 12:00 AM THER/PROPH/DIAG INJ [...] 0.60 mg/dLCALCIUM 10.90 mg/ dLeGFR >60 mL/min/1.73 [id number] 45.0 U/L 08/31/2013 10:54 AM GLUCOSE 255.0 [...] 0.40 mg/ dLCALCIUM 10.60 mg/dLeGFR >60 mL/min/1.73 [id number] 369.0 mg/ dLCHOLESTEROL 153.0 mg/dLHDL 26.0 mg/dLLDL [...] BILI 0.30 mg/dLCALCIUM 10.0 mg/dLeGFR >60 mL/min/1.73 [id number] YELLOW APPEARANCE CLEAR SPEC GRAV 1.010 pH 5.5 PROTEIN NEGATIVE GLUCOSE NEGATIVE KETONE NEGATIVE BILIRUBIN NEGATIVE BLOOD NEGATIVE NITRITE NEGATIVE LEUK SCREEN NEGATIVE HGB A1C 6.30 %Est Avg Glucose 134.1 mg/dLMICROALBUMIN UR <0.5 MG/DL 02/13/2015 4:38 PM RMSF, IgG, EIA Negative [facility] Spotted Fever,IgM 0.51 E. chaffeensis (HME) [...] 141 Influenza 04/24/2014 sanofi pasteur PMC Fluzone [id number] Intramuscular Left Upper Arm 02/27/2014 01/15/2014 141 Influenza 02/13/2015 sanofi pasteur PMC Fluzone [id number] Intramuscular Left Deltoid 02/13/2015 01/03/2015 140 Tdap 06/06/2015 [facility] SKB BOOSTRIX [id number] Intramuscular Left Deltoid 06/06/2015 [...] Headache b 2011 1:38PM Heart Sound Abnormality b 2011 [...] Anxiety about health Jan 16 2016 10:58AM Payers Insurance Name Company Name Plan Name Plan Number Policy Number Policy Group Number Start Date Medicare Part A Medicare [facility] [id number] N/A [facility] [id number] N/A Medicare Part A Medicare - Lab/Xray [id number] N/A Medicare Part B Medicare Of [place] [id number] Tuesday, February 28, 2000 [place] [facility] [employer] [facility] [place] [facility] [employer] [facility] [id number] Tuesday, November 10, 2009 Medicare Part A Medicare Part A [id number] N/A [place] [facility] - [facility] [id number] May [facility] Plan of [id number] Wednesday, May 30, 2012 History of Encounters Visit Date Visit Type Provider 01/16/2016 Office visit Heena Dumont MD 12/16/2015 Office visit Heena Dumont MD 11/24/2015 Office visit Kaylynn Mendez QUALITY ENG 11/18/2015 Office visit Heena Dumont MD 11/03/2015 Office visit Sundeep Russell QUALITY ENG 10/20/2015 Office visit Kaylynn Mendez QUALITY ENG 09/23/2015 Office visit Kaylynn Mendez QUALITY ENG 09/16/[address] Pepe Figueroa MD 09/02/2015 Office visit Kaylynn Mendez QUALITY ENG 09/01/2015 Office visit Kaylynn Mendez QUALITY ENG 07/30/2015 Office visit Heena Dumont MD 07/15/2015 Office visit Kaylynn Mendez QUALITY ENG 07/04/2015 Office visit Heena Dumont MD 06/06/2015 Office visit Heena Dumont MD 06/06/2015 Office visit Kaylynn Mendez QUALITY ENG 06/02/2015 Office visit Kaylynn Mendez QUALITY ENG 05/26/2015 Office visit Kaylynn Mendez QUALITY ENG 05/20/2015 Office visit Kaylynn Mendez QUALITY ENG 05/08/2015 Office visit Heena Dumont MD 05/06/2015 Office visit Kaylynn Mendez QUALITY ENG 04/29/2015 Office visit Kaylynn Mendez QUALITY ENG 03/27/2015 Voided Brittni Yanez QUALITY ENG 03/21/2015 Office visit Heena Dumont MD 03/12/2015 Office visit Kaylynn Mendez QUALITY ENG 02/26/2015 Office visit Brittni Yanez QUALITY ENG 02/13/2015 Office visit Heena Dumont MD 01/15/2015 Office visit Brittni Yanez QUALITY ENG 01/13/2015 Office visit Heena Dumont MD 01/08/[address] Carol Fowler MD 01/01/2015 Office visit Brittni Yanez QUALITY ENG 12/13/2014 Office visit Heena Dumont MD 11/27/2014 Office visit Kaylynn Mendez QUALITY ENG 11/14/2014 Office visit Heena Dumont MD 10/18/2014 Office visit Heena Dumont MD 10/17/2014 [facility] Eliseo Hoskins MD 10/09/2014 Office visit Heena Dumont MD 09/25/2014 Office visit Heena Dumont MD 09/17/2014 Office visit Kaylynn Mendez QUALITY ENG 09/04/2014 Office visit Heena Dumont MD 08/28/2014 Office visit Kaylynn Mendez QUALITY ENG 08/23/2014 [facility] John Hoskins MD 08/01/2014 Office visit Kaylynn Mendez QUALITY ENG 07/29/2014 Office visit Heena Dumont MD 07/25/2014 Nurse visit Heena Dumont MD 07/17/2014 Office visit Kaylynn Mendez QUALITY ENG 07/11/2014 Office visit Heena Dumont MD 07/01/2014 Office visit Heena Dumont MD 06/25/2014 Office visit Kaylynn Mendez QUALITY ENG 06/12/2014 Office visit Kaylynn Walker QUALITY ENG 06/06/2014 Office visit Kaylynn Walker QUALITY ENG 05/27/2014 Office visit Heena Dumont MD 04/20/2014 Office visit Yesica Falcon QUALITY ENG 03/29/2014 Office visit Na Jones QUALITY ENG 03/15/2014 Office visit Heena Dumont MD 2014 Office visit Heena Dumont MD 2014 [facility] John Hoskins MD 02/27/2014 Nurse visit Heena Dumont MD 02/13/2014 Office visit Lena El QUALITY ENG 02/07/2014 Office visit Heena Dumont MD 02/03/2014 Office visit Na Jones QUALITY ENG 01/30/2014 Office visit Kaylynn Mendez QUALITY ENG 01/24/2014 Office visit Sundeep Russell QUALITY ENG 01/16/2014 Office visit Kaylynn Mendez QUALITY ENG 01/10/2014 Nurse visit Kaylynn Walker QUALITY ENG 01/08/2014 Office visit Kaylynn Walker QUALITY ENG 12/05/2013 Office visit Kaylynn Mendez QUALITY ENG 11/21/2013 Office visit Kaylynn Mendez QUALITY ENG 10/23/2013 Office visit Brittni Yanez QUALITY ENG 10/17/2013 Nurse visit Heena Dumont MD 10/12/2013 Office visit Kaylynn Mendez QUALITY ENG 10/02/2013 Office visit Heena Dumont MD 09/20/2013 Nurse visit Kaylynn Mendez QUALITY ENG 09/20/2013 Voided Heena Dumont MD 09/14/2013 Office visit Kaylynn Walker QUALITY ENG 09/05/2013 Office visit Sundeep Russell QUALITY ENG 09/04/2013 Nurse visit Kaylynn Walker QUALITY ENG 08/31/2013 Office visit Kaylynn Mendez QUALITY ENG 08/23/2013 Office visit Heena Dumont MD 08/10/2013 Office visit Kaylynn Mendez QUALITY ENG 07/25/2013 Office visit Kaylynn Walker QUALITY ENG 07/18/2013 Office visit Kaylynn Walker QUALITY ENG 07/12/2013 Office visit Kaylynn Walker QUALITY ENG 06/28/2013 Nurse visit Kaylynn Walker QUALITY ENG 06/14/2013 Nurse visit Kaylynn Walker QUALITY ENG 06/08/2013 Nurse visit Kaylynn Walker QUALITY ENG 05/31/2013 Nurse visit Chadd Norris DO 05/18/2013 Office visit Terese Davidson MD 05/16/2013 Office visit Kaylynn Walker QUALITY ENG 05/09/2013 Office visit Kaylynn Walker QUALITY ENG 04/29/2013 [facility] John Hoskins MD 04/25/2013 Nurse visit Kaylynn Walker QUALITY ENG 04/17/2013 Office visit Kaylynn Walker QUALITY ENG 04/03/2013 Nurse visit Kaylynn Walker QUALITY ENG 04/03/2013 Office visit Terese Davidson MD 03/28/2013 Office visit Sundeep Russell QUALITY ENG 03/21/2013 Office visit Kaylynn Mendez QUALITY ENG 03/20/2013 Office visit Terese Davidson MD 03/14/2013 Nurse visit Kaylynn Walker QUALITY ENG 03/05/2013 Nurse visit Kaylynn Walker QUALITY ENG 02/19/2013 Office visit Terese Davidson MD 02/16/2013 Nurse visit Kaylynn Walker QUALITY ENG 02/09/2013 Office visit Sundeep Russell QUALITY ENG 02/08/2013 Nurse visit Kaylynn Walker QUALITY ENG 02/01/2013 Nurse visit Kaylynn Walker QUALITY ENG 01/26/2013 Nurse visit Sabrina Andrea DATA PROCESSING CONSULTANT 01/25/2013 Office visit Kaylynn Walker QUALITY ENG 01/22/2013 Office visit Yoan Castaneda MD 01/18/2013 Nurse visit Kaylynn Walker QUALITY ENG 01/11/2013 Nurse visit Kaylynn Walker QUALITY ENG 01/05/2013 Nurse visit Kaylynn Walker QUALITY ENG 12/29/2012 Office visit Kaylynn Walker QUALITY ENG 11/27/2012 Office visit Kaylynn Mendez QUALITY ENG 11/08/2012 Office visit Odell Tierney MD 11/08/2012 Voided Odell Tierney MD 11/07/2012 Office visit Kaylynn Mendez QUALITY ENG 10/31/2012 [facility] John Hoskins MD 10/31/2012 Office visit Kaylynn Walker QUALITY ENG 10/19/2012 Office visit Genoveva Ayala QUALITY ENG 10/10/2012 Office visit Kaylynn Walker QUALITY ENG 10/03/2012 Office visit Kaylynn Walker QUALITY ENG 09/26/2012 Office visit Kaylynn Walker QUALITY ENG 09/06/2012 Office visit Kaylynn Walker QUALITY ENG 09/06/2012 Office visit Odell Tierney MD 08/31/2012 Voided Kaylynn Mendez QUALITY ENG 07/28/2012 Office visit Kaylynn Mendez QUALITY ENG 07/27/2012 Office visit Davidaziza Joyner DO 07/20/2012 [facility] David Sherifftom DO 07/13/2012 Hospital David Joyner DO 07/11/2012 Office visit Kaylynn Mendez QUALITY ENG 06/27/2012 [facility] Odell Tierney MD 06/21/2012 Office visit David Joyner DO 06/21/2012 Office visit Odell Tierney MD 06/20/2012 Office visit Brittni Yanez QUALITY ENG 06/06/2012 Office visit Odell Tierney MD 05/03/2012 Office visit Kaylynn Mendez QUALITY ENG 04/28/2012 Office visit Brittni Yanez QUALITY ENG 04/11/2012 Office visit Kaylynn Mendez QUALITY ENG 04/06/2012 Hospital John Hoskins MD 03/30/2012 Office visit Kaylynn Mendez QUALITY ENG 03/15/2012 Office visit Kaylynn Mendez QUALITY ENG 03/15/2012 Office visit Odell Tierney MD 02/09/2012 Office visit Kaylynn Mendez QUALITY ENG 12/23/2011 Office visit Kaylynn Mendez QUALITY ENG 11/02/2011 Office visit Kaylynn Mendez QUALITY ENG 10/14/2011 Office visit Kaylynn Mendez QUALITY ENG 09/27/2011 Office visit Kaylynn Mendez QUALITY ENG 08/19/2011 Hospital John Hoskins MD 08/18/2011 Hospital John Hoskins MD 08/18/2011 Office visit Kaylynn Mendez QUALITY ENG 08/02/2011 Office visit Kaylynn Mendez QUALITY ENG 07/08/2011 Office visit Kaylynn Mendez QUALITY ENG 07/05/2011 Office visit Odell Tierney MD 06/15/2011 Office visit Kaylynn Mendez QUALITY ENG 05/14/2011 Office visit Kaylynn Mendez QUALITY ENG 05/11/2011 Office visit Odell Tierney MD 04/28/2011 Office visit Kaylynn Mendez QUALITY ENG 03/02/2011 Office visit Chadd Norris DO 02/17/2011 Office visit Chadd Norris DO 01/19/2011 Office visit Odell Tierney MD 12/16/2010 Office visit Odell Tierney MD 12/02/2010 Office visit Yoan Castaneda MD 11/24/2010 Office visit Chadd Norris DO 11/17/2010 Office visit Chadd Norris DO 10/01/2010 Office visit Odell Tierney MD 09/02/2010 Office visit Odell Tierney MD 08/26/2010 Office visit Oedll Tierney MD 07/23/2010 Office visit Odell Tierney [...]
--- OUTSIDE RECORDS SUMMARY | 2018-05-09 19:25 | XMS REPORT ---
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 tkydpdij-xkxxilroa-HA 3.5-10,000-1 mg/mL-unit/mL-% otic drops,suspension 201607/23/2016 instill 4 [...] Reviewed 04/28/2011 12:00 AM Decadron 1 mg ND#[id number] (Jr) Reviewed 04/28/2011 12:00 AM Depo-Medrol 80 mg ND#[id number]-Qlvqxteh Reviewed 09/02/2015 12:00 AM Toradol 60 Mg NDC#0436-5718-10 Reviewed 09/02/2015 12:00 AM Phenergan, Up to 50 Mg RHC Medicaid Reviewed 09/16/2015 12:00 AM Toradol 60 Mg ND#1416-3815-38 Reviewed 09/16/2015 12:00 AM Phenergan Up to 50 mg RHC Medicare Reviewed 05/11/2011 12:00 AM N BLOCK INJ OCCIPITAL Reviewed 05/11/2011 12:00 AM Kenalog La-[address]-20 ANNA Reviewed 11/13/2015 12:00 AM ASSAY OF [...] SC/IM Reviewed 07/08/2011 12:00 AM Toradol,15mg [facility]#[id number], [place] Reviewed 07/08/2011 12:00 AM Phenergan 50 Mg Im [facility] [id number] [place] Reviewed 01/21/2016 12:00 AM ECG MONIT/REPRT UP TO 48 HRS Returned 08/02/2011 12:00 AM THER/PROPH/DIAG INJ SC/IM Reviewed 08/02/2011 12:00 AM Decadron 1 mg [facility]#[id number] (Jr) Reviewed 08/02/2011 12:00 AM Depo-Medrol 80 mg [facility]#[id number]-Bncmdsuc Reviewed 03/05/2016 12:00 AM COMPLETE CBC W/AUTO DIFF WBC Reviewed 03/05/2016 12:00 AM STREP A ASSAY W/OPTIC Reviewed 03/05/2016 12:00 AM C-REACTIVE PROTEIN Reviewed 03/18/2016 12:00 AM [facility] MEDICARE - flu vaccine administration Reviewed 03/18/2016 [...] 09/27/2011 12:00 AM Depo-Medrol 80 mg [facility]#[id number]-Jmlkffqc Reviewed 09/27/2011 12:00 AM Depo-Medrol 40 mg NDC#[id number] Reviewed 07/06/2016 12:00 AM CHEST X-RAY 4/> [...] Reviewed 12/23/2011 12:00 AM Decadron 1 mg NDC#[id number] (Jr) Reviewed 12/23/2011 12:00 AM Depo-Medrol 80 mg NDC#[id number]-Voxnikrp Reviewed 11/02/2016 11:45 AM URINALYSIS AUTO W/O SCOPE Reviewed 02/09/2012 12:00 AM THER/PROPH/DIAG INJ SC/IM Reviewed 02/09/2012 12:00 AM Decadron 1 mg NDC#[id number] (Jr) Reviewed 02/09/2012 12:00 AM Depo-Medrol 80 mg NDC#[id number]-Xqnlwoao Reviewed 03/15/2012 12:00 AM N BLOCK INJ OCCIPITAL Reviewed 03/15/2012 12:00 AM Kenalog Vj-[address]-20 ANNA Reviewed 04/11/2012 12:00 AM COMPLETE CBC W/AUTO DIFF WBC Reviewed 04/11/2012 12:00 AM COMPREHEN METABOLIC PANEL Reviewed 04/11/2012 12:00 AM LIPID PANEL Reviewed 04/11/2012 12:00 AM ASSAY THYROID STIM HORMONE Reviewed 04/11/2012 12:00 AM DESTRUCT PREMALG LES 2-14 Reviewed 06/20/2012 12:00 AM THER/PROPH/DIAG INJ SC/IM Reviewed 06/20/2012 12:00 AM Decadron, Per 1 Mg ND# [address]-44 Reviewed 06/20/2012 12:00 AM Depo-Medrol, Per 80 Mg ND#1514-7471-57 Reviewed 09/06/2012 12:00 AM N BLOCK INJ OCCIPITAL Reviewed 09/06/2012 12:00 AM Kenalog Av-[address]-20 ANNA Reviewed 09/06/2012 12:00 AM X-RAY EXAM RIBS UNI 2 VIEWS Reviewed 09/26/2012 12:00 AM THER/PROPH/DIAG INJ SC/IM Reviewed 09/26/2012 12:00 AM Decadron, Per 1 Mg ND# [address]-07 Reviewed 09/26/2012 12:00 AM Depo-Medrol, Per 80 Mg ND#2809-2112-37 Reviewed 10/03/2012 12:00 AM URINALYSIS AUTO W/O SCOPE Reviewed 10/03/2012 12:00 AM THER/PROPH/DIAG INJ SC/IM Reviewed 10/03/2012 12:00 AM Toradol 60 Mg ND#7790-9726-89 Reviewed 10/03/2012 12:00 AM Phenergan, 25Mg ND#1964-0416-67 Reviewed 10/19/2012 12:00 AM N BLOCK INJ OCCIPITAL Reviewed 10/19/2012 12:00 AM Kenalog, Per 10 Mg ND#9463-9093-10 Reviewed 10/19/2012 12:00 AM Toradol 30 Mg ND#0072-2318-64 Reviewed 10/19/2012 12:00 AM THER/PROPH/DIAG INJ SC/IM Reviewed 10/31/2012 12:00 AM COMPLETE CBC W/AUTO DIFF WBC Reviewed 10/31/2012 12:00 AM COMPREHEN METABOLIC PANEL Reviewed 10/31/2012 12:00 AM LIPID PANEL Reviewed 10/31/2012 12:00 AM ELECTROCARDIOGRAM COMPLETE Reviewed 11/03/2012 12:[address] THORAX W/O & W/DYE Reviewed 11/08/2012 12:00 AM N BLOCK INJ OCCIPITAL Reviewed 11/08/2012 12:00 AM Kenalog Fr-[address]-20 ANNA Reviewed 11/27/2012 12:00 AM COMPLETE CBC [...] Decadron, Per 1 Mg [facility]# [address]-89 Reviewed 01/25/2013 12:00 AM Depo-Medrol, Per 80 Mg [facility]#3908-4541-91 Reviewed 01/26/2013 12:00 AM IMMUNOTHERAPY ONE INJECTION [...] Decadron, Per 1 Mg [facility]# [address]-92 Reviewed 05/16/2013 12:00 AM Depo-Medrol, Per 80 Mg [facility]#8943-5182-65 Reviewed 05/31/2013 12:00 AM IMMUNOTHERAPY INJECTIONS Reviewed 06/08/2013 12:00 AM IMMUNOTHERAPY INJECTIONS Reviewed 06/14/2013 12:00 AM IMMUNOTHERAPY INJECTIONS Reviewed 06/28/2013 12:00 AM IMMUNOTHERAPY INJECTIONS Reviewed 07/12/2013 12:00 AM X-RAY EXAM RIBS UNI 2 VIEWS Reviewed 07/18/2013 12:00 AM Toradol 60 Mg [facility]#8462-6337-26 Reviewed 07/18/2013 12:00 AM THER/PROPH/DIAG INJ SC/IM Reviewed 08/23/2013 12:00 AM COMPLETE CBC W/AUTO DIFF WBC Reviewed 08/23/2013 12:00 AM COMPREHEN METABOLIC PANEL Reviewed 08/23/2013 12:00 AM LIPID PANEL Reviewed 08/31/2013 12:00 AM X-RAY EXAM OF LOWER LEG Reviewed 09/04/2013 12:00 AM IMMUNOTHERAPY INJECTIONS Reviewed 09/14/2013 12:00 AM THER/PROPH/DIAG INJ SC/IM Reviewed 09/14/2013 12:00 AM Decadron, Per 1 Mg [facility]# [address]-01 Reviewed 09/14/2013 12:00 AM Depo-Medrol, Per 80 Mg [facility]#3501-9698-66 Reviewed 09/20/2013 12:00 AM IMMUNOTHERAPY INJECTIONS Reviewed [...] INJ OCCIPITAL Reviewed 12/10/2009 12:00 AM Kenalog Ow-[address]-20 ANNA Reviewed 12/16/2009 12:00 AM HIV-1ANTIBODY Reviewed 12/16/2009 12:00 AM COMPLETE CBC W/AUTO DIFF WBC Reviewed 12/16/2009 12:00 AM METABOLIC PANEL TOTAL CA Reviewed 12/16/2009 12:00 AM Type and screen Reviewed 12/16/2009 12:00 AM PROTHROMBIN TIME Reviewed 12/16/2009 12:00 AM THROMBOPLASTIN TIME PARTIAL Reviewed 03/18/2010 12:00 AM DRAIN/INJ JOINT/BURSA W/O US Reviewed 03/18/2010 12:[address]-[address]-20 ANNA Reviewed 11/21/2013 12:00 AM RADEX HAND MINIMUM 3 VIEWS Reviewed 06/03/2010 12:00 AM INJ TRIGGER POINT 1/2 MUSCL Reviewed 06/03/2010 12:00 AM Kenalog per 10Mg Im-Nd#[address]-71(Niall) Reviewed 12/05/2013 12:00 AM COMPLETE CBC W/AUTO [...] Reviewed 07/23/2010 12:00 AM Kenalog per 10Mg Im-[facility]#[address]-91(Niall) Reviewed 2014 12:00 AM COMPLETE CBC W/AUTO [...] INJ OCCIPITAL Reviewed 10/01/2010 12:00 AM Kenalog Um-[address]-20 ANNA Reviewed 07/25/2014 12:00 AM THER/PROPH/DIAG INJ [...] Quant,IgM <0.80 RMSF , IgG, EIA Negative [facility] Spotted Fever,IgM 0.51 E. chaffeensis (HME) [...] 141 Influenza 04/24/2014 sanofi pasteur PMC Fluzone [id number] Intramuscular Left Upper Arm 02/27/2014 01/15/2014 141 Influenza 02/13/2015 sanofi pasteur PMC Fluzone [id number] Intramuscular Left Deltoid 02/13/2015 01/03/2015 140 Tdap 06/06/2015 Storify SKB BOOSTRIX [id number] Intramuscular Left Deltoid 06/06/2015 07/23/2014 115 Influenza 03/18/2016 [facility] Fluzone [id number] Intramuscular Left Deltoid 03/17/2016 01/03/2015 141 History [...] Number Policy Group Number Start Date Medicare [facility] Medicare C [id number] N/A [facility] Comm [id number] N/A Medicare Part A Medicare - Lab/Xray [id number] N/A Medicare Part B Medicare Of [place] [id number] Monday, February 28, 2000 [place] [facility] [place] [facility] [place] [id number] Tuesday, November 10, 2009 Medicare Part A Medicare Part A [id number] N/A [place] [facility] [place] [facility] - [facility] [id number] May [facility] Plan of [id number] Wednesday, May 30, 2012 History of Encounters Visit Date Visit Type Provider 11/05/2016 Office visit Riccardo Cardoza MD 11/02/2016 Office visit Heena Dumont MD 10/06/2016 Office visit Kaylynn Mendez ASSISTANT CROSS COUNTRY COACH 09/22/2016 Office visit Heena Dumont MD 09/09/2016 Office visit Kaylynn Mendez ASSISTANT CROSS COUNTRY COACH 08/27/2016 Office visit Riccardo Cardoza MD 08/26/2016 Office visit Heena Dumont MD 07/09/2016 Office visit Riccardo Cardoza MD 07/06/2016 Office visit Heena Dumont MD 06/18/2016 Office visit Kaylynn Mendez ASSISTANT CROSS COUNTRY COACH 06/07/2016 Office visit Sundeep Russell ASSISTANT CROSS COUNTRY COACH 06/04/2016 Office visit Heena Dumont MD 05/13/2016 Office visit Heena Dumont MD 05/03/2016 Office visit Heena Dumont MD 04/26/2016 Office visit Kaylynn Mendez ASSISTANT CROSS COUNTRY COACH 04/14/2016 Office visit Heena Dumont MD 04/13/2016 Office visit Kaylynn Mendez ASSISTANT CROSS COUNTRY COACH 04/02/2016 Office visit Lena El ASSISTANT CROSS COUNTRY COACH 04/02/2016 Office visit Heena Dumont MD 03/26/2016 Office visit Yesica Falcon ASSISTANT CROSS COUNTRY COACH 03/17/2016 Office visit Heena Dumont MD 03/05/2016 Office visit Kaylynn Mendez ASSISTANT CROSS COUNTRY COACH 02/16/2016 Office visit Heena Dumont MD 02/14/2016 Office visit Na Jones ASSISTANT CROSS COUNTRY COACH 01/16/2016 Office visit Heena Dumont MD 12/16/2015 Office visit Heena Dumont MD 11/24/2015 Office visit Kaylynn Mendez ASSISTANT CROSS COUNTRY COACH 11/18/2015 Office visit Heena Dumont MD 11/03/2015 Office visit Sundeep Russell ASSISTANT CROSS COUNTRY COACH 10/20/2015 Office visit Kaylynn Mendez ASSISTANT CROSS COUNTRY COACH 09/23/2015 Office visit Kaylynn Mendez ASSISTANT CROSS COUNTRY COACH 09/16/[address] Pepe Figueroa MD 09/02/2015 Office visit Kaylynn Mendez ASSISTANT CROSS COUNTRY COACH 09/01/2015 Office visit Kaylynn Mendez ASSISTANT CROSS COUNTRY COACH 07/30/2015 Office visit Heena Dumont MD 07/15/2015 Office visit Kaylynn Mendez ASSISTANT CROSS COUNTRY COACH 07/04/2015 Office visit Heena Dumont MD 06/06/2015 Office visit Heena Dumont MD 06/06/2015 Office visit Kaylynn Mendez ASSISTANT CROSS COUNTRY COACH 06/02/2015 Office visit Kaylynn Mendez ASSISTANT CROSS COUNTRY COACH 05/26/2015 Office visit Kaylynn Mendez ASSISTANT CROSS COUNTRY COACH 05/20/2015 Office visit Kaylynn Walker ASSISTANT CROSS COUNTRY COACH 05/08/2015 Office visit Heena Dumont MD 05/06/2015 Office visit Kaylynn Andrea ASSISTANT CROSS COUNTRY COACH 04/29/2015 Office visit Kaylynn Walker ASSISTANT CROSS COUNTRY COACH 03/27/2015 Voided Brittni Yanez ASSISTANT CROSS COUNTRY COACH 03/21/2015 Office visit Heena Dumont MD 03/12/2015 Office visit Kaylynn Mendez ASSISTANT CROSS COUNTRY COACH 02/26/2015 Office visit Brittni Yanez ASSISTANT CROSS COUNTRY COACH 02/13/2015 Office visit Heena Dumont MD 01/15/2015 Office visit Brittni Yanez ASSISTANT CROSS COUNTRY COACH 01/13/2015 Office visit Heena Dumont MD 01/08/[address] Carol Fowler MD 01/01/2015 Office visit Brittni Yanez ASSISTANT CROSS COUNTRY COACH 12/13/2014 Office visit Heena Dumont MD 11/27/2014 Office visit Kaylynn Mendez ASSISTANT CROSS COUNTRY COACH 11/14/2014 Office visit Heena Dumont MD 10/18/2014 Office visit Heena Dumont MD 10/17/2014 [facility] John Hoskins MD 10/09/2014 Office visit Heena Dumont MD 09/25/2014 Office visit Heena Dumont MD 09/17/2014 Office visit Kaylynn Mendez ASSISTANT CROSS COUNTRY COACH 09/04/2014 Office visit Heena Dumont MD 08/28/2014 Office visit Kaylynn Mendez ASSISTANT CROSS COUNTRY COACH 08/23/2014 [facility] John Hoskins MD 08/01/2014 Office visit Kaylynn Mendez ASSISTANT CROSS COUNTRY COACH 07/29/2014 Office visit Heena Dumont MD 07/25/2014 Nurse visit Heena Dumont MD 07/17/2014 Office visit Kaylynn Mendez ASSISTANT CROSS COUNTRY COACH 07/11/2014 Office visit Heena Dumont MD 07/01/2014 Office visit Heena Dumont MD 06/25/2014 Office visit Kaylynn Mendez ASSISTANT CROSS COUNTRY COACH 06/12/2014 Office visit Kaylynn Mendez ASSISTANT CROSS COUNTRY COACH 06/06/2014 Office visit Kaylynn Mendez ASSISTANT CROSS COUNTRY COACH 05/27/2014 Office visit Heena Dumont MD 04/20/2014 Office visit Yesica Falcon ASSISTANT CROSS COUNTRY COACH 03/29/2014 Office visit Na Jones ASSISTANT CROSS COUNTRY COACH 03/15/2014 Office visit Heena Dumont MD 2014 Office visit Heena Dumont MD 2014 [facility] John Hoskins MD 02/27/2014 Nurse visit Heena Dumont MD 02/13/2014 Office visit Lena El ASSISTANT CROSS COUNTRY COACH 02/07/2014 Office visit Heena Dumont MD 02/03/2014 Office visit Na Jones ASSISTANT CROSS COUNTRY COACH 01/30/2014 Office visit Kaylynn Mendez ASSISTANT CROSS COUNTRY COACH 01/24/2014 Office visit Sundeep Russell ASSISTANT CROSS COUNTRY COACH 01/16/2014 Office visit Kaylynn Walker ASSISTANT CROSS COUNTRY COACH 01/10/2014 Nurse visit Kaylynn Walker ASSISTANT CROSS COUNTRY COACH 01/08/2014 Office visit Kaylynn Walker ASSISTANT CROSS COUNTRY COACH 12/05/2013 Office visit Kaylynn Walker ASSISTANT CROSS COUNTRY COACH 11/21/2013 Office visit Kaylynn Walker ASSISTANT CROSS COUNTRY COACH 10/23/2013 Office visit Brtitni Yanez ASSISTANT CROSS COUNTRY COACH 10/17/2013 Nurse visit Heena Dumont MD 10/12/2013 Office visit Kaylynn Mendez ASSISTANT CROSS COUNTRY COACH 10/02/2013 Office visit Heena Dumont MD 09/20/2013 Nurse visit Kaylynn Walker ASSISTANT CROSS COUNTRY COACH 09/20/2013 Voided Heena Dumont MD 09/14/2013 Office visit Kaylynn Walker ASSISTANT CROSS COUNTRY COACH 09/05/2013 Office visit Sundeep Russell ASSISTANT CROSS COUNTRY COACH 09/04/2013 Nurse visit Kaylynn Mendez ASSISTANT CROSS COUNTRY COACH 08/31/2013 Office visit Kaylynn Mendez ASSISTANT CROSS COUNTRY COACH 08/23/2013 Office visit Heena Dumont MD 08/10/2013 Office visit Kaylynn Walker ASSISTANT CROSS COUNTRY COACH 07/25/2013 Office visit Kaylynn Walker ASSISTANT CROSS COUNTRY COACH 07/18/2013 Office visit Kaylynn Walker ASSISTANT CROSS COUNTRY COACH 07/12/2013 Office visit Kaylynn Walker ASSISTANT CROSS COUNTRY COACH 06/28/2013 Nurse visit Kaylynn Walker ASSISTANT CROSS COUNTRY COACH 06/14/2013 Nurse visit Kaylynn Walker ASSISTANT CROSS COUNTRY COACH 06/08/2013 Nurse visit Kaylynn Walker ASSISTANT CROSS COUNTRY COACH 05/31/2013 Nurse visit Chadd Norris DO 05/18/2013 Office visit Terese Davidson MD 05/16/2013 Office visit Kaylynn Mendez ASSISTANT CROSS COUNTRY COACH 05/09/2013 Office visit Kaylynn Walker ASSISTANT CROSS COUNTRY COACH 04/29/2013 [facility] Eliseo Hoskins MD 04/25/2013 Nurse visit Kaylynn Walker ASSISTANT CROSS COUNTRY COACH 04/17/2013 Office visit Kaylynn Walker ASSISTANT CROSS COUNTRY COACH 04/03/2013 Nurse visit Kaylynn Walker ASSISTANT CROSS COUNTRY COACH 04/03/2013 Office visit Terese Davidson MD 03/28/2013 Office visit Sundeep Russell ASSISTANT CROSS COUNTRY COACH 03/21/2013 Office visit Kaylynn Mendez ASSISTANT CROSS COUNTRY COACH 03/20/2013 Office visit Terese Davidson MD 03/14/2013 Nurse visit Kaylynn Mendez ASSISTANT CROSS COUNTRY COACH 03/05/2013 Nurse visit Kaylynn Mendez ASSISTANT CROSS COUNTRY COACH 02/19/2013 Office visit Terese Davidson MD 02/16/2013 Nurse visit Kaylynn Mendez ASSISTANT CROSS COUNTRY COACH 02/09/2013 Office visit Sundeep Russell ASSISTANT CROSS COUNTRY COACH 02/08/2013 Nurse visit Kaylynn Mendez ASSISTANT CROSS COUNTRY COACH 02/01/2013 Nurse visit Kaylynn Mendez ASSISTANT CROSS COUNTRY COACH 01/26/2013 Nurse visit Sabrina Andrea NETWORK RELAY TESTER 01/25/2013 Office visit Kaylynn Mendez ASSISTANT CROSS COUNTRY COACH 01/22/2013 Office visit Yoan Castaneda MD 01/18/2013 Nurse visit Kaylynn Mendez ASSISTANT CROSS COUNTRY COACH 01/11/2013 Nurse visit Kaylynn Mendez ASSISTANT CROSS COUNTRY COACH 01/05/2013 Nurse visit Kaylynn Walker ASSISTANT CROSS COUNTRY COACH 12/29/2012 Office visit Kaylynn Walker ASSISTANT CROSS COUNTRY COACH 11/27/2012 Office visit Kaylynn Mendez ASSISTANT CROSS COUNTRY COACH 11/08/2012 Office visit Odell Tierney MD 11/08/2012 Voided Odell Tierney MD 11/07/2012 Office visit Kaylynn Mendez ASSISTANT CROSS COUNTRY COACH 10/31/2012 [facility] John Hoskins MD 10/31/2012 Office visit Kaylynn Mendez ASSISTANT CROSS COUNTRY COACH 10/19/2012 Office visit Genoveva Ayala ASSISTANT CROSS COUNTRY COACH 10/10/2012 Office visit Kaylynn Mendez ASSISTANT CROSS COUNTRY COACH 10/03/2012 Office visit Kaylynn Mendez ASSISTANT CROSS COUNTRY COACH 09/26/2012 Office visit Kaylynn Mendez ASSISTANT CROSS COUNTRY COACH 09/06/2012 Office visit Kaylynn Mendez ASSISTANT CROSS COUNTRY COACH 09/06/2012 Office visit Odell Tierney MD 08/31/2012 Voided Kaylynn Mendez ASSISTANT CROSS COUNTRY COACH 07/28/2012 Office visit Kaylynn Mendez ASSISTANT CROSS COUNTRY COACH 07/27/2012 Office visit David Joyner DO 07/20/2012 [facility] DO 07/13/2012 [facility] DO 07/11/2012 Office visit Kaylynn Mendez ASSISTANT CROSS COUNTRY COACH 06/27/2012 [facility] Odell Tierney MD 06/21/2012 Office visit David Joyner DO 06/21/2012 Office visit Odell Tierney MD 06/20/2012 Office visit Brittni Yanez ASSISTANT CROSS COUNTRY COACH 06/06/2012 Office visit Odell Tierney MD 05/03/2012 Office visit Kaylynn Mendez ASSISTANT CROSS COUNTRY COACH 04/28/2012 Office visit Brittni aYnez ASSISTANT CROSS COUNTRY COACH 04/11/2012 Office visit Kaylynn Mendez ASSISTANT CROSS COUNTRY COACH 04/06/2012 [facility] John Hoskins MD 03/30/2012 Office visit Kaylynn Mendez ASSISTANT CROSS COUNTRY COACH 03/15/2012 Office visit Kaylynn Mendez ASSISTANT CROSS COUNTRY COACH 03/15/2012 Office visit Odell Tierney MD 02/09/2012 Office visit Kaylynn Mendez ASSISTANT CROSS COUNTRY COACH 12/23/2011 Office visit Kaylynn Mendez ASSISTANT CROSS COUNTRY COACH 11/02/2011 Office visit Kaylynn Mendez ASSISTANT CROSS COUNTRY COACH 10/14/2011 Office visit Kaylynn Mendez ASSISTANT CROSS COUNTRY COACH 09/27/2011 Office visit Kaylynn Mendez ASSISTANT CROSS COUNTRY COACH 08/19/2011 [facility] John Hoskins MD 08/18/2011 [facility] John Hoskins MD 08/18/2011 Office visit Kaylynn Mendez ASSISTANT CROSS COUNTRY COACH 08/02/2011 Office visit Kaylynn Mendez ASSISTANT CROSS COUNTRY COACH 07/08/2011 Office visit Kaylynn Mendez ASSISTANT CROSS COUNTRY COACH 07/05/2011 Office visit Odell Tierney MD 06/15/2011 Office visit Kaylynn Mendez ASSISTANT CROSS COUNTRY COACH 05/14/2011 Office visit Kaylynn Mendez ASSISTANT CROSS COUNTRY COACH 05/11/2011 Office visit Odell Tierney MD 04/28/2011 Office visit Kaylynn Mendez ASSISTANT CROSS COUNTRY COACH 03/02/2011 Office visit Chadd Norris DO 02/17/2011 [...]
--- OUTSIDE RECORDS SUMMARY | 2018-05-09 19:30 | XMS REPORT ---
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 [employer] Closure Lancets 33 gauge miscellaneous misc 01/21/2016 use as directed Kixer miscellaneous strip 01/21/2016 07/19/2016 Test 2x daily, [...] use as directed for 99 days [place] 5-325 mg oral tablet 06/17/2014 06/27/2014 take [...] a day as needed for 30 days tfyvzsme-gjimsopoc-WM 3.5-10,000-1 mg/mL-unit/mL-% otic drops,suspension 201401/08/2015 instill 4 [...] Reviewed 04/28/2011 12:00 AM Decadron 1 mg ND#[id number] (Jr) Reviewed 04/28/2011 12:00 AM Depo-Medrol 80 mg NDC#[id number]-Valmgyqq Reviewed 09/02/2015 12:00 AM Toradol 60 Mg NDC#0340-6802-86 Reviewed 09/02/2015 12:00 AM Phenergan, Up to 50 Mg RHC Medicaid Reviewed 09/16/2015 12:00 AM Toradol 60 Mg NDC#1919-3853-97 Reviewed 09/16/2015 12:00 AM Phenergan Up to 50 mg RHC Medicare Reviewed 05/11/2011 12:00 AM N BLOCK INJ OCCIPITAL Reviewed 05/11/2011 12:00 AM Kenalog Qs-[address]-20 ANNA Reviewed 11/13/2015 12:00 AM ASSAY OF [...] AM Toradol,15mg [facility]#[id number], Brunildaer Reviewed 07/08/2011 12:00 AM Phenergan 50 Mg Im [facility] 1880-4494-50 FP [place] Reviewed 01/21/2016 12:00 AM ECG MONIT/REPRT UP TO 48 HRS Returned 08/02/2011 12:00 AM THER/PROPH/DIAG INJ SC/IM Reviewed 08/02/2011 12:00 AM Decadron 1 mg ND#[id number] (Jr) Reviewed 08/02/2011 12:00 AM Depo-Medrol 80 mg ND#[id number]-Pekwiapi Reviewed 03/05/2016 12:00 AM COMPLETE CBC W/AUTO DIFF WBC Returned 03/05/2016 12:00 AM STREP A ASSAY W/OPTIC Returned 03/05/2016 12:00 AM C-REACTIVE PROTEIN Returned 03/18/2016 12:00 AM [facility] MEDICARE - flu vaccine administration Reviewed [...] Reviewed 09/27/2011 12:00 AM Depo-Medrol 80 mg [facility]#[id number]-Ntajalhq Reviewed 07/06/2016 12:00 AM CHEST X-RAY 4/> VIEWS Returned 10/14/2011 12:00 AM X-RAY EXAM OF ABDOMEN Reviewed 10/14/2011 12:00 AM URINALYSIS AUTO W/O SCOPE Reviewed 12/23/2011 12:00 AM THER/PROPH/DIAG INJ SC/IM Reviewed 12/23/2011 12:00 AM Decadron 1 mg ND#[id number] (Jr) Reviewed 12/23/2011 12:00 AM Depo-Medrol 80 mg ND#[id number]-Caigtdse Reviewed 02/09/2012 12:00 AM THER/PROPH/DIAG INJ SC/IM Reviewed 02/09/2012 12:00 AM Decadron 1 mg ND#[id number] (Jr) Reviewed 02/09/2012 12:00 AM Depo-Medrol 80 mg ND#[id number]-Vjcwcsfh Reviewed 03/15/2012 12:00 AM N BLOCK INJ OCCIPITAL Reviewed 03/15/2012 12:00 AM Kenalog Ej-[address]-20 ANNA Reviewed 04/11/2012 12:00 AM COMPLETE CBC W/AUTO DIFF WBC Reviewed 04/11/2012 12:00 AM COMPREHEN METABOLIC PANEL Reviewed 04/11/2012 12:00 AM LIPID PANEL Reviewed 04/11/2012 12:00 AM ASSAY THYROID STIM HORMONE Reviewed 06/20/2012 12:00 AM THER/PROPH/DIAG INJ SC/IM Reviewed 06/20/2012 12:00 AM Decadron, Per 1 Mg ND# [address]-41 Reviewed 06/20/2012 12:00 AM Depo-Medrol, Per 80 Mg ND#0700-5109-57 Reviewed 09/06/2012 12:00 AM N BLOCK INJ OCCIPITAL Reviewed 09/06/2012 12:00 AM Kenalog Uy-[address]-20 ANNA Reviewed 09/06/2012 12:00 AM X-RAY EXAM RIBS UNI 2 VIEWS Reviewed 09/26/2012 12:00 AM THER/PROPH/DIAG INJ SC/IM Reviewed 09/26/2012 12:00 AM Decadron, Per 1 Mg ND# [address]-93 Reviewed 09/26/2012 12:00 AM Depo-Medrol, Per 80 Mg ND#3370-1461-39 Reviewed 10/03/2012 12:00 AM URINALYSIS AUTO W/O SCOPE Reviewed 10/03/2012 12:00 AM THER/PROPH/DIAG INJ SC/IM Reviewed 10/03/2012 12:00 AM Toradol 60 Mg ND#4393-4978-40 Reviewed 10/03/2012 12:00 AM Phenergan, 25Mg ND#6649-2639-36 Reviewed 10/19/2012 12:00 AM N BLOCK INJ OCCIPITAL Reviewed 10/19/2012 12:00 AM Kenalog, Per 10 Mg ND#5916-9572-00 Reviewed 10/19/2012 12:00 AM Toradol 30 Mg [facility]#2807-0208-88 Reviewed 10/19/2012 12:00 AM THER/PROPH/DIAG INJ SC/IM Reviewed 10/31/2012 12:00 AM COMPLETE CBC W/AUTO DIFF WBC Reviewed 10/31/2012 12:00 AM COMPREHEN METABOLIC PANEL Reviewed 10/31/2012 12:00 AM LIPID PANEL Reviewed 11/03/2012 12:[address] THORAX W/O & W/DYE Reviewed 11/08/2012 12:00 AM N BLOCK INJ OCCIPITAL Reviewed 11/08/2012 12:00 AM Kenalog Vd-[address]-20 ANNA Reviewed 11/27/2012 12:00 AM COMPLETE CBC [...] Mg [facility]# [address]-76 Reviewed 01/25/2013 12:00 AM Depo-Medrol, Per 80 Mg [facility]#1149-1833-91 Reviewed 01/26/2013 12:00 AM IMMUNOTHERAPY INJECTIONS Reviewed [...] 05/16/2013 12:00 AM Decadron, Per 1 Mg [facility]# [address]-58 Reviewed 05/16/2013 12:00 AM Depo-Medrol, Per 80 Mg [facility]#1863-0296-31 Reviewed 05/31/2013 12:00 AM IMMUNOTHERAPY INJECTIONS Reviewed 06/08/2013 12:00 AM IMMUNOTHERAPY INJECTIONS Reviewed 06/14/2013 12:00 AM IMMUNOTHERAPY INJECTIONS Reviewed 06/28/2013 12:00 AM IMMUNOTHERAPY INJECTIONS Reviewed 07/12/2013 12:00 AM X-RAY EXAM RIBS UNI 2 VIEWS Reviewed 07/18/2013 12:00 AM Toradol 60 Mg [facility]#3236-5459-54 Reviewed 07/18/2013 12:00 AM THER/PROPH/DIAG INJ SC/IM [...] Mg [facility]# [address]-37 Reviewed 09/14/2013 12:00 AM Depo-Medrol, Per 80 Mg [facility]#2083-1057-84 Reviewed 09/20/2013 12:00 AM IMMUNOTHERAPY INJECTIONS Reviewed [...] INJ OCCIPITAL Reviewed 12/10/2009 12:00 AM Kenalog Ay-[address]-20 ANNA Reviewed 12/16/2009 12:00 AM HIV-1ANTIBODY Reviewed 12/16/2009 12:00 AM COMPLETE CBC W/AUTO DIFF WBC Reviewed 12/16/2009 12:00 AM METABOLIC PANEL TOTAL CA Reviewed 12/16/2009 12:00 AM Type and screen Reviewed 12/16/2009 12:00 AM PROTHROMBIN TIME Reviewed 12/16/2009 12:00 AM THROMBOPLASTIN TIME PARTIAL Reviewed 03/18/2010 12:00 AM DRAIN/INJ JOINT/BURSA W/O US Reviewed 03/18/2010 12:00 AM Kengretta Jm-[address]-20 ANNA Reviewed 11/21/2013 12:00 AM RADEX HAND MINIMUM 3 VIEWS Reviewed 06/03/2010 12:00 AM INJ TRIGGER POINT 1/2 MUSCL Reviewed 06/03/2010 12:00 AM Kenalog per 10Mg -[facility]#[address]-98(Niall) Reviewed 12/05/2013 12:00 AM COMPLETE CBC W/AUTO [...] 07/23/2010 12:00 AM Kenalog per 10Mg Im-[facility]#[address]-42(Niall) Reviewed 2014 12:00 AM COMPLETE CBC W/AUTO [...] INJ OCCIPITAL Reviewed 10/01/2010 12:00 AM Kenalog Bt-[address]-20 ANNA Reviewed 07/25/2014 12:00 AM THER/PROPH/DIAG INJ [...] 141 Influenza 04/24/2014 sanofi pasteur PMC Fluzone [id number] Intramuscular Left Upper Arm 02/27/2014 01/15/2014 141 Influenza 02/13/2015 sanofi pasteur PMC Fluzone [id number] Intramuscular Left Deltoid 02/13/2015 01/03/2015 140 Tdap 06/06/2015 [employer] SKB BOOSTRIX [id number] Intramuscular Left Deltoid 06/06/2015 07/23/2014 115 Influenza 03/18/2016 sanofi pasteur PMC Fluzone [id number] Intramuscular Left Deltoid 03/17/2016 01/03/2015 141 History [...] 2016 3:25PM Osteoporosis Jul 16 2016 10:32AM Payers Insurance Name Company Name Plan Name Plan Number Policy Number Policy Group Number Start Date Medicare [facility] Medicare RHC [id number] N/A [facility] Comm [id number] N/A Medicare Part A Medicare - Lab/Xray [id number] N/A Medicare Part B Medicare Of [place] [id number] Monday, February 28, 2000 [place] [employer] [place] [employer] [place] [id number] Tuesday, November 10, 2009 Medicare Part A Medicare Part A [id number] N/A [place] [employer] 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 Plan of [id number] Wednesday, May 30, 2012 History of Encounters Visit Date Visit Type Provider 07/09/2016 Office visit Riccardo Cardoza MD 07/06/2016 Office visit Heena Dumont MD 06/18/2016 Office visit Kaylynn Mendez EQUIPMENT PROCESSOR 06/07/2016 Office visit Sundeep Russell EQUIPMENT PROCESSOR 06/04/2016 Office visit Heena Dumont MD 05/13/2016 Office visit Heena Dumont MD 05/03/2016 Office visit Heena Dumont MD 04/26/2016 Office visit Kaylynn Mendez EQUIPMENT PROCESSOR 04/14/2016 Office visit Heena Dumont MD 04/13/2016 Office visit Kaylynn Mendez EQUIPMENT PROCESSOR 04/02/2016 Office visit Lena El EQUIPMENT PROCESSOR 04/02/2016 Office visit Heena Dumont MD 03/26/2016 Office visit Yesica Falcon EQUIPMENT PROCESSOR 03/17/2016 Office visit Heena Dumont MD 03/05/2016 Office visit Kaylynn Mendez EQUIPMENT PROCESSOR 02/16/2016 Office visit Heena Dumont MD 02/14/2016 Office visit Na Jones EQUIPMENT PROCESSOR 01/16/2016 Office visit Heena Dumont MD 12/16/2015 Office visit Heena Dumont MD 11/24/2015 Office visit Kaylynn Mendez EQUIPMENT PROCESSOR 11/18/2015 Office visit Heena Dumont MD 11/03/2015 Office visit Sundeep Russell EQUIPMENT PROCESSOR 10/20/2015 Office visit Kaylynn Mendez EQUIPMENT PROCESSOR 09/23/2015 Office visit Kaylynn Mendez EQUIPMENT PROCESSOR 09/16/[address] Pepe Figueroa MD 09/02/2015 Office visit Kaylynn Mendez EQUIPMENT PROCESSOR 09/01/2015 Office visit Kaylynn Mendez EQUIPMENT PROCESSOR 07/30/2015 Office visit Heena Dumont MD 07/15/2015 Office visit Kaylynn Mendez EQUIPMENT PROCESSOR 07/04/2015 Office visit Heena Dumont MD 06/06/2015 Office visit Heena Dumont MD 06/06/2015 Office visit Kaylynn Mendez EQUIPMENT PROCESSOR 06/02/2015 Office visit Kaylynn Andrea EQUIPMENT PROCESSOR 05/26/2015 Office visit Kaylynn Mendez EQUIPMENT PROCESSOR 05/20/2015 Office visit Kaylynn Mendez EQUIPMENT PROCESSOR 05/08/2015 Office visit Heena Dumotn MD 05/06/2015 Office visit Kaylynn Mendez EQUIPMENT PROCESSOR 04/29/2015 Office visit Kaylynn Mendez EQUIPMENT PROCESSOR 03/27/2015 Voided Brittni Yanez EQUIPMENT PROCESSOR 03/21/2015 Office visit Heena Dumont MD 03/12/2015 Office visit Kaylynn Mendez EQUIPMENT PROCESSOR 02/26/2015 Office visit Brittni Yanez EQUIPMENT PROCESSOR 02/13/2015 Office visit Heena Dumont MD 01/15/2015 Office visit Brittin Yanez EQUIPMENT PROCESSOR 01/13/2015 Office visit Heena Dumont MD 01/08/[address] Carol Fowler MD 01/01/2015 Office visit Brittni Yanez EQUIPMENT PROCESSOR 12/13/2014 Office visit Heena Dumont MD 11/27/2014 Office visit Kaylynn Mendez EQUIPMENT PROCESSOR 11/14/2014 Office visit Heena Dumont MD 10/18/2014 Office visit Heena Dumont MD 10/17/2014 [facility] Eliseo Hoskins MD 10/09/2014 Office visit Heena Dumont MD 09/25/2014 Office visit Heena Dumont MD 09/17/2014 Office visit Kaylynn Mendez EQUIPMENT PROCESSOR 09/04/2014 Office visit Heena Dumont MD 08/28/2014 Office visit Kaylynn Mendez EQUIPMENT PROCESSOR 08/23/2014 [facility] Eliseo Hoskins MD 08/01/2014 Office visit Kaylynn Mendez EQUIPMENT PROCESSOR 07/29/2014 Office visit Heena Dumont MD 07/25/2014 Nurse visit Heena Dumont MD 07/17/2014 Office visit Kaylynn Mendez EQUIPMENT PROCESSOR 07/11/2014 Office visit Heena Dumont MD 07/01/2014 Office visit Heena Dumont MD 06/25/2014 Office visit Kaylynn Mendez EQUIPMENT PROCESSOR 06/12/2014 Office visit Kaylynn Mendez EQUIPMENT PROCESSOR 06/06/2014 Office visit Kaylynn Mendez EQUIPMENT PROCESSOR 05/27/2014 Office visit Heena Dumont MD 04/20/2014 Office visit Yesica Falcon EQUIPMENT PROCESSOR 03/29/2014 Office visit Na Jones EQUIPMENT PROCESSOR 03/15/2014 Office visit Heena Dumont MD 2014 Office visit Heena Dumont MD 2014 [facility] John Hoskins MD 02/27/2014 Nurse visit Heena Dumont MD 02/13/2014 Office visit Lena El EQUIPMENT PROCESSOR 02/07/2014 Office visit Heena Dumont MD 02/03/2014 Office visit Na Jones EQUIPMENT PROCESSOR 01/30/2014 Office visit Kaylynn Mendez EQUIPMENT PROCESSOR 01/24/2014 Office visit Sundeep Russell EQUIPMENT PROCESSOR 01/16/2014 Office visit Kaylynn Walker EQUIPMENT PROCESSOR 01/10/2014 Nurse visit Kaylynn Walker EQUIPMENT PROCESSOR 01/08/2014 Office visit Kaylynn Walker EQUIPMENT PROCESSOR 12/05/2013 Office visit Kaylynn Walker EQUIPMENT PROCESSOR 11/21/2013 Office visit Kaylynn Walker EQUIPMENT PROCESSOR 10/23/2013 Office visit Brittni Yanez EQUIPMENT PROCESSOR 10/17/2013 Nurse visit Heena Dumont MD 10/12/2013 Office visit Kaylynn Walker EQUIPMENT PROCESSOR 10/02/2013 Office visit Heena Dumont MD 09/20/2013 Nurse visit Kaylynn Mendez EQUIPMENT PROCESSOR 09/20/2013 Voided Heena Dumont MD 09/14/2013 Office visit Kaylynn Walker EQUIPMENT PROCESSOR 09/05/2013 Office visit Sundeep Russell EQUIPMENT PROCESSOR 09/04/2013 Nurse visit Kaylynn Walker EQUIPMENT PROCESSOR 08/31/2013 Office visit Kaylynn Walker EQUIPMENT PROCESSOR 08/23/2013 Office visit Heena Dumont MD 08/10/2013 Office visit Kaylynn Walker EQUIPMENT PROCESSOR 07/25/2013 Office visit Kaylynn Walker EQUIPMENT PROCESSOR 07/18/2013 Office visit Kaylynn Walker EQUIPMENT PROCESSOR 07/12/2013 Office visit Kaylynn Walker EQUIPMENT PROCESSOR 06/28/2013 Nurse visit Kaylynn Walker EQUIPMENT PROCESSOR 06/14/2013 Nurse visit Kaylynn Walker EQUIPMENT PROCESSOR 06/08/2013 Nurse visit Kaylynn Walker EQUIPMENT PROCESSOR 05/31/2013 Nurse visit Chadd Norris DO 05/18/2013 Office visit Terese Davidson MD 05/16/2013 Office visit Kaylynn Mendez EQUIPMENT PROCESSOR 05/09/2013 Office visit Kaylynn Mendez EQUIPMENT PROCESSOR 04/29/2013 [facility] John Hoskins MD 04/25/2013 Nurse visit Kaylynn Walker EQUIPMENT PROCESSOR 04/17/2013 Office visit Kaylynn Walker EQUIPMENT PROCESSOR 04/03/2013 Nurse visit Kaylynn Mendez EQUIPMENT PROCESSOR 04/03/2013 Office visit Terese Davidson MD 03/28/2013 Office visit Sundeep Russell EQUIPMENT PROCESSOR 03/21/2013 Office visit Kaylynn Mendez EQUIPMENT PROCESSOR 03/20/2013 Office visit Terese Davidson MD 03/14/2013 Nurse visit Kaylynn Mendez EQUIPMENT PROCESSOR 03/05/2013 Nurse visit Kaylynn Walker EQUIPMENT PROCESSOR 02/19/2013 Office visit Terese Davidson MD 02/16/2013 Nurse visit Kaylynn Walker EQUIPMENT PROCESSOR 02/09/2013 Office visit Sundeep Russell EQUIPMENT PROCESSOR 02/08/2013 Nurse visit Kaylynn Walker EQUIPMENT PROCESSOR 02/01/2013 Nurse visit Kaylynn Walker EQUIPMENT PROCESSOR 01/26/2013 Nurse visit Sabrina Andrea PANELBOARD ASSEMBLER 01/25/2013 Office visit Kaylynn Andrea EQUIPMENT PROCESSOR 01/22/2013 Office visit Yoan Castaneda MD 01/18/2013 Nurse visit Kaylynn Walker EQUIPMENT PROCESSOR 01/11/2013 Nurse visit Kaylynn Walker EQUIPMENT PROCESSOR 01/05/2013 Nurse visit Kaylynn Walker EQUIPMENT PROCESSOR 12/29/2012 Office visit Kaylynn Walker EQUIPMENT PROCESSOR 11/27/2012 Office visit Kaylynn Mendez EQUIPMENT PROCESSOR 11/08/2012 Office visit Odell Tierney MD 11/08/2012 Voided Odell Tierney MD 11/07/2012 Office visit Kaylynn Mendez EQUIPMENT PROCESSOR 10/31/2012 [facility] John Hoskins MD 10/31/2012 Office visit Kaylynn Mendez EQUIPMENT PROCESSOR 10/19/2012 Office visit Genoveva Ayala EQUIPMENT PROCESSOR 10/10/2012 Office visit Kaylynn Mendez EQUIPMENT PROCESSOR 10/03/2012 Office visit Kaylynn Walker EQUIPMENT PROCESSOR 09/26/2012 Office visit Kaylynn Mendez EQUIPMENT PROCESSOR 09/06/2012 Office visit Kaylynn Mendez EQUIPMENT PROCESSOR 09/06/2012 Office visit Odell Tierney MD 08/31/2012 Voided Kaylynn Mendez EQUIPMENT PROCESSOR 07/28/2012 Office visit Kaylynn Mendez EQUIPMENT PROCESSOR 07/27/2012 Office visit David Joyner DO 07/20/2012 [facility] David Joyner DO 07/13/2012 [facility] David Joyner DO 07/11/2012 Office visit Kaylynn Mendez EQUIPMENT PROCESSOR 06/27/2012 [facility] Odell Tierney MD 06/21/2012 Office visit David Joyner DO 06/21/2012 Office visit Odell Tierney MD 06/20/2012 Office visit Brittni Yanez EQUIPMENT PROCESSOR 06/06/2012 Office visit Odell Tierney MD 05/03/2012 Office visit Kaylynn Mendez EQUIPMENT PROCESSOR 04/28/2012 Office visit Brittni Yanez EQUIPMENT PROCESSOR 04/11/2012 Office visit Kaylynn Mendez EQUIPMENT PROCESSOR 04/06/2012 [facility] John Hoskins MD 03/30/2012 Office visit Kaylynn Mendez EQUIPMENT PROCESSOR 03/15/2012 Office visit Kaylynn Mendez EQUIPMENT PROCESSOR 03/15/2012 Office visit Odell Tierney MD 02/09/2012 Office visit Kaylynn Mendez EQUIPMENT PROCESSOR 12/23/2011 Office visit Kaylynn Mendez EQUIPMENT PROCESSOR 11/02/2011 Office visit Kaylynn Mendez EQUIPMENT PROCESSOR 10/14/2011 Office visit Kaylynn Mendez EQUIPMENT PROCESSOR 09/27/2011 Office visit Kaylynn Mendez EQUIPMENT PROCESSOR 08/19/2011 [facility] John Hoskins MD 08/18/2011 [facility] John Hoskins MD 08/18/2011 Office visit Kaylynn Mendez EQUIPMENT PROCESSOR 08/02/2011 Office visit Kaylynn Mendez EQUIPMENT PROCESSOR 07/08/2011 Office visit Kaylynn Mendez EQUIPMENT PROCESSOR 07/05/2011 Office visit Odell Tierney MD 06/15/2011 Office visit Kaylynn Mendez EQUIPMENT PROCESSOR 05/14/2011 Office visit Kaylynn Andrea EQUIPMENT PROCESSOR 05/11/2011 Office visit Odell Tierney MD 04/28/2011 Office visit Kaylynn Mendez EQUIPMENT PROCESSOR 03/02/2011 Office visit Chadd Norris DO 02/17/2011 [...]
--- OUTSIDE RECORDS SUMMARY | 2018-05-09 19:34 | XMS REPORT ---
Author Kaylynn Lyles Organization [facility] Address [address] [place], [place] [id number] Care Team Providers Care Manager In Training Name Role Phone Kaylynn Mendez PCP Unavailable [...] route every 8 hours for 30 days Patanol 0.1 % ophthalmic drops 10/20/2015 instill 1 drop into affected eye( s) by ophthalmic route 2 times per day at an interval of 6 to 8 hours Name Start Date Expiration Date SIG [...] 08/27/2014 use as directed for 99 days Bluford 5-325 mg oral tablet 06/17/2014 06/27/2014 take [...] a day as needed for 30 days igdsloaf-xdecobhwl-JO 3.5-10,000-1 mg/mL-unit/mL-% otic drops,suspension 201401/08/2015 instill 4 [...] HC BMI BSA BMI Percentile O2 Sat(%) 10/20/2015 2:08:00 PM 128 mmHg 72 mmHg [...] Reviewed 04/28/2011 12:00 AM Decadron 1 mg ND#[id number] (Jr) Reviewed 04/28/2011 12:00 AM Depo-Medrol 80 mg ND#[id number]-Rnoiauqt Reviewed 09/02/2015 12:00 AM Toradol 60 Mg NDC#0021-1157-66 Reviewed 09/02/2015 12:00 AM Phenergan, Up to 50 Mg RHC Medicaid Reviewed 09/16/2015 12:00 AM Toradol 60 Mg ND#4792-0025-06 Reviewed 09/16/2015 12:00 AM Phenergan Up to 50 mg RHC Medicare Reviewed 05/11/2011 12:00 AM N BLOCK INJ OCCIPITAL Reviewed 05/11/2011 12:00 AM Kenalog Gr-[address]-20 ANNA Reviewed 06/15/2011 12:00 AM COMPLETE CBC W/AUTO DIFF WBC Returned 06/15/2011 12:00 AM COMPREHEN METABOLIC PANEL Returned 07/08/2011 12:00 AM THER/PROPH/DIAG INJ SC/IM Reviewed 07/08/2011 12:00 AM Toradol,15mg ND#[id number], Adilene Reviewed 07/08/2011 12:00 AM Phenergan 50 Mg Im Ndc 8322-3329-67 [place] Reviewed 08/02/2011 12:00 AM THER/PROPH/DIAG INJ SC/IM Reviewed 08/02/2011 12:00 AM Decadron 1 mg NDC#[id number] (Jr) Reviewed 08/02/2011 12:00 AM Depo-Medrol 80 mg NDC#[id number]-Noqguiem Reviewed 09/27/2011 12:00 AM THER/PROPH/DIAG INJ SC/IM Reviewed 09/27/2011 12:00 AM Depo-Medrol 80 mg NDC#[id number]-Wnwbeehf Reviewed 10/14/2011 12:00 AM X-RAY EXAM OF ABDOMEN Returned 10/14/2011 12:00 AM URINALYSIS AUTO W/O SCOPE Reviewed 12/23/2011 12:00 AM THER/PROPH/DIAG INJ SC/IM Reviewed 12/23/2011 12:00 AM Decadron 1 mg NDC#[id number] (Jr) Reviewed 12/23/2011 12:00 AM Depo-Medrol 80 mg NDC#[id number]-Buzdichd Reviewed 02/09/2012 12:00 AM THER/PROPH/DIAG INJ SC/IM Reviewed 02/09/2012 12:00 AM Decadron 1 mg NDC#[id number] (Jr) Reviewed 02/09/2012 12:00 AM Depo-Medrol 80 mg NDC#[id number]-Fewvwact Reviewed 03/15/2012 12:00 AM N BLOCK INJ OCCIPITAL Reviewed 03/15/2012 12:00 AM Kenalog Lh-[address]-20 ANNA Reviewed 04/11/2012 12:00 AM COMPLETE CBC W/AUTO DIFF WBC Returned 04/11/2012 12:00 AM COMPREHEN METABOLIC PANEL Returned 04/11/2012 12:00 AM LIPID PANEL Returned 04/11/2012 12:00 AM ASSAY THYROID STIM HORMONE Returned 06/20/2012 12:00 AM THER/PROPH/DIAG INJ SC/IM Reviewed 06/20/2012 12:00 AM Decadron, Per 1 Mg ND# [address]-24 Reviewed 06/20/2012 12:00 AM Depo-Medrol, Per 80 Mg ND#3197-7248-38 Reviewed 09/06/2012 12:00 AM N BLOCK INJ OCCIPITAL Reviewed 09/06/2012 12:00 AM Kenalog Qm-[address]-20 ANNA Reviewed 09/06/2012 12:00 AM X-RAY EXAM RIBS UNI 2 VIEWS Returned 09/26/2012 12:00 AM THER/PROPH/DIAG INJ SC/IM Reviewed 09/26/2012 12:00 AM Decadron, Per 1 Mg [facility]# [address]-76 Reviewed 09/26/2012 12:00 AM Depo-Medrol, Per 80 Mg [facility]#8565-6997-43 Reviewed 10/03/2012 12:00 AM URINALYSIS AUTO W/O SCOPE Reviewed 10/03/2012 12:00 AM THER/PROPH/DIAG INJ SC/IM Reviewed 10/03/2012 12:00 AM Toradol 60 Mg [facility]#8139-2224-64 Reviewed 10/03/2012 12:00 AM Phenergan, 25Mg [facility]#9530-6615-71 Reviewed 10/19/2012 12:00 AM N BLOCK INJ OCCIPITAL Reviewed 10/19/2012 12:00 AM Kenalog, Per 10 Mg ND#1145-6264-70 Reviewed 10/19/2012 12:00 AM Toradol 30 Mg [facility]#6385-4036-00 Reviewed 10/19/2012 12:00 AM THER/PROPH/DIAG INJ SC/IM Reviewed 10/31/2012 12:00 AM COMPLETE CBC W/AUTO DIFF WBC Returned 10/31/2012 12:00 AM COMPREHEN METABOLIC PANEL Returned 10/31/2012 12:00 AM LIPID PANEL Returned 11/03/2012 12:[address] THORAX W/O & W/DYE Returned 11/08/2012 12:00 AM N BLOCK INJ OCCIPITAL Reviewed 11/08/2012 12:00 AM Kenalog Oh-[address]-20 ANNA Reviewed 11/27/2012 12:00 AM COMPLETE CBC [...] 12:00 AM Decadron, Per 1 Mg [facility]# [address]-65 Reviewed 01/25/2013 12:00 AM Depo-Medrol, Per 80 Mg [facility]#9955-2790-36 Reviewed 01/26/2013 12:00 AM IMMUNOTHERAPY INJECTIONS Returned [...] 12:00 AM Decadron, Per 1 Mg [facility]# [address]-26 Reviewed 05/16/2013 12:00 AM Depo-Medrol, Per 80 Mg [facility]#7884-1672-00 Reviewed 05/31/2013 12:00 AM IMMUNOTHERAPY INJECTIONS Reviewed 06/08/2013 12:00 AM IMMUNOTHERAPY INJECTIONS Reviewed 06/14/2013 12:00 AM IMMUNOTHERAPY INJECTIONS Reviewed 06/28/2013 12:00 AM IMMUNOTHERAPY INJECTIONS Reviewed 07/12/2013 12:00 AM X-RAY EXAM RIBS UNI 2 VIEWS Returned 07/18/2013 12:00 AM Toradol 60 Mg [facility]#2159-0408-83 Reviewed 07/18/2013 12:00 AM THER/PROPH/DIAG INJ SC/IM Reviewed 08/23/2013 12:00 AM COMPLETE CBC W/AUTO DIFF WBC Reviewed 08/23/2013 12:00 AM COMPREHEN METABOLIC PANEL Reviewed 08/23/2013 12:00 AM LIPID PANEL Reviewed 08/31/2013 12:00 AM X-RAY EXAM OF LOWER LEG Returned 09/04/2013 12:00 AM IMMUNOTHERAPY INJECTIONS Reviewed 09/14/2013 12:00 AM THER/PROPH/DIAG INJ SC/IM Reviewed 09/14/2013 12:00 AM Decadron, Per 1 Mg [facility]# [address]-99 Reviewed 09/14/2013 12:00 AM Depo-Medrol, Per 80 Mg [facility]#6594-0528-37 Reviewed 09/20/2013 12:00 AM IMMUNOTHERAPY INJECTIONS Reviewed [...] INJ OCCIPITAL Reviewed 12/10/2009 12:00 AM Quentin Ua-[address]-20 ANNA Reviewed 12/16/2009 12:00 AM HIV-1ANTIBODY Reviewed 12/16/2009 12:00 AM COMPLETE CBC W/AUTO DIFF WBC Reviewed 12/16/2009 12:00 AM METABOLIC PANEL TOTAL CA Reviewed 12/16/2009 12:00 AM Type and screen Reviewed 12/16/2009 12:00 AM PROTHROMBIN TIME Reviewed 12/16/2009 12:00 AM THROMBOPLASTIN TIME PARTIAL Reviewed 03/18/2010 12:00 AM DRAIN/INJ JOINT/BURSA W/O US Reviewed 03/18/2010 12:00 AM Quentin Cl-[address]-20 ANNA Reviewed 11/21/2013 12:00 AM RADEX HAND MINIMUM 3 VIEWS Returned 06/03/2010 12:00 AM INJ TRIGGER POINT 2 MUSCL Reviewed 06/03/2010 12:00 AM Kenalog per 10Mg Im-Nd#[address]-04(Niall) Reviewed 12/05/2013 12:00 AM COMPLETE CBC W/AUTO [...] Returned 06/18/2010 12:00 AM INJ TRIGGER POINT 2 MUSCL Reviewed 01/10/2014 12:00 AM Prolia, 1 [...] Reviewed 07/23/2010 12:00 AM Kenalog per 10Mg Im-Nd#[address]-80(Niall) Reviewed 2014 12:00 AM COMPLETE CBC W/AUTO [...] INJ OCCIPITAL Reviewed 10/01/2010 12:00 AM Kenalog Vw-[address]-20 ANNA Reviewed 07/25/2014 12:00 AM THER/PROPH/DIAG INJ [...] 0.60 mg/dLCALCIUM 10.90 mg/ dLeGFR >60 mL/min/1.73 [id number] 45.0 U/L 08/31/2013 10:54 AM GLUCOSE 255.0 [...] 0.40 mg/ dLCALCIUM 10.60 mg/dLeGFR >60 mL/min/1.73 [id number] 369.0 mg/ dLCHOLESTEROL 153.0 mg/dLHDL 26.0 mg/dLLDL [...] BILI 0.30 mg/dLCALCIUM 10.0 mg/dLeGFR >60 mL/min/1.73 [id number] YELLOW APPEARANCE CLEAR SPEC GRAV 1.010 pH 5.5 PROTEIN NEGATIVE GLUCOSE NEGATIVE KETONE NEGATIVE BILIRUBIN NEGATIVE BLOOD NEGATIVE NITRITE NEGATIVE LEUK SCREEN NEGATIVE HGB A1C 6.30 %Est Avg Glucose 134.1 mg/dLMICROALBUMIN UR <0.5 MG/DL 02/13/2015 4:38 PM RMSF, IgG, EIA Negative [facility] Spotted Fever,IgM 0.51 E. chaffeensis [...] 141 Influenza 04/24/2014 sanofi pasteur PMC Fluzone [id number] Intramuscular Left Upper Arm 02/27/2014 01/15/2014 141 Influenza 02/13/2015 sanofi pasteur PMC Fluzone [id number] Intramuscular Left Deltoid 02/13/2015 01/03/2015 140 Tdap [...] Allergic conjunctivitis, left Oct 20 2015 2:10PM Payers Insurance Name Company Name Plan Name Plan Number Policy Number Policy Group Number Start Date Medicare Part A Medicare RHC [id number] N/A [facility] - RHC - [facility] RHC Comm [id number] N/A Medicare Part A Medicare - Lab/Xray [id number] N/A Medicare Part B Medicare Of [place] [id number] Monday, February 28, 2000 [place] [employer] [place] [employer] [place] [id number] Tuesday, November 10, 2009 Medicare Part A Medicare Part A [id number] N/A [place] [employer] - RHC [place] [employer] - RHC [id number] May [facility] Comm Plan of [id number] Wednesday, May 30, 2012 History of Encounters Visit Date Visit Type Provider 10/20/2015 Office visit Kaylynn Mendez SENIOR WRITER 09/23/2015 Office visit Kaylynn Mendez SENIOR WRITER 09/16/[address] Pepe Figueroa MD 09/02/2015 Office visit Kaylynn Mendez SENIOR WRITER 09/01/2015 Office visit Kaylynn Mendez SENIOR WRITER 07/30/2015 Office visit Heena Dumont MD 07/15/2015 Office visit Kaylynn Mendez SENIOR WRITER 07/04/2015 Office visit Heena Dumont MD 06/06/2015 Office visit Heena Dumont MD 06/06/2015 Office visit Kaylynn Mendez SENIOR WRITER 06/02/2015 Office visit Kaylynn Mendez SENIOR WRITER 05/26/2015 Office visit Kaylynn Mendez SENIOR WRITER 05/20/2015 Office visit Kaylynn Mendez SENIOR WRITER 05/08/2015 Office visit Heena Dumont MD 05/06/2015 Office visit Kaylynn Mendez SENIOR WRITER 04/29/2015 Office visit Kaylynn Mendez SENIOR WRITER 03/27/2015 Voided Brittni Yanez SENIOR WRITER 03/21/2015 Office visit Heena Dumont MD 03/12/2015 Office visit Kaylynn Mendez SENIOR WRITER 02/26/2015 Office visit Brittni Yanez APRN 02/13/2015 Office visit Heena Dumont MD 01/15/2015 Office visit Brittni Yanez SENIOR WRITER 01/13/2015 Office visit Heena Dumont MD 01/08/[address] Carol Fowler MD 01/01/2015 Office visit Brittni Yanez SENIOR WRITER 12/13/2014 Office visit Heena Dumont MD 11/27/2014 Office visit Kaylynn Mendez SENIOR WRITER 11/14/2014 Office visit Heena Dumont MD 10/18/2014 Office visit Heena Dumont MD 10/17/2014 [facility] Eliseo Hoskins MD 10/09/2014 Office visit Heena Dumont MD 09/25/2014 Office visit Heena Dumont MD 09/17/2014 Office visit Kaylynn Mendez SENIOR WRITER 09/04/2014 Office visit Heena Dumont MD 08/28/2014 Office visit Kaylynn Mendez SENIOR WRITER 08/23/2014 [facility] Eliseo Hoskins MD 08/01/2014 Office visit Kaylynn Mendez SENIOR WRITER 07/29/2014 Office visit Heena Dumont MD 07/25/2014 Nurse visit Heena Dumont MD 07/17/2014 Office visit Kaylynn Mendez SENIOR WRITER 07/11/2014 Office visit Heena Dumont MD 07/01/2014 Office visit Heena Dumont MD 06/25/2014 Office visit Kaylynn Mendez SENIOR WRITER 06/12/2014 Office visit Kaylynn Mendez SENIOR WRITER 06/06/2014 Office visit Kaylynn Mendez SENIOR WRITER 05/27/2014 Office visit Heena Dumont MD 04/20/2014 Office visit Yesica Falcon SENIOR WRITER 03/29/2014 Office visit Na Jones SENIOR WRITER 03/15/2014 Office visit Heena Dumont MD 2014 Office visit Heena Dumont MD 2014 [facility] Eliseo Hoskins MD 02/27/2014 Nurse visit Heena Dumont MD 02/13/2014 Office visit Lena El SENIOR WRITER 02/07/2014 Office visit Heena Dumont MD 02/03/2014 Office visit Na Jones SENIOR WRITER 01/30/2014 Office visit Kaylynn Mendez SENIOR WRITER 01/24/2014 Office visit Sundeep Russell SENIOR WRITER 01/16/2014 Office visit Kaylynn Mendez SENIOR WRITER 01/10/2014 Nurse visit Kaylynn Mendez SENIOR WRITER 01/08/2014 Office visit Kaylynn Mendez SENIOR WRITER 12/05/2013 Office visit Kaylynn Mendez SENIOR WRITER 11/21/2013 Office visit Kaylynn Mendez SENIOR WRITER 10/23/2013 Office visit Brittni Yanez SENIOR WRITER 10/17/2013 Nurse visit Heena Dumont MD 10/12/2013 Office visit Kaylynn Mendez SENIOR WRITER 10/02/2013 Office visit Heena Dumont MD 09/20/2013 Nurse visit Kaylynn Mendez SENIOR WRITER 09/20/2013 Voided Heena Dumont MD 09/14/2013 Office visit Kaylynn Mendez SENIOR WRITER 09/05/2013 Office visit Sundeep Russell SENIOR WRITER 09/04/2013 Nurse visit Kaylynn Walker SENIOR WRITER 08/31/2013 Office visit Kaylynn Walker SENIOR WRITER 08/23/2013 Office visit Heena Dumont MD 08/10/2013 Office visit Kaylynn Walker SENIOR WRITER 07/25/2013 Office visit Kaylynn Walker SENIOR WRITER 07/18/2013 Office visit Kaylynn Walker SENIOR WRITER 07/12/2013 Office visit Kaylynn Walker SENIOR WRITER 06/28/2013 Nurse visit Kaylynn Walker SENIOR WRITER 06/14/2013 Nurse visit Kaylynn Walker SENIOR WRITER 06/08/2013 Nurse visit Kaylynn Walker SENIOR WRITER 05/31/2013 Nurse visit Chadd Norris DO 05/18/2013 Office visit Terese Davidson MD 05/16/2013 Office visit Kaylynn Mendez SENIOR WRITER 05/09/2013 Office visit Kaylynn Mendez SENIOR WRITER 04/29/2013 [facility] Eliseo Hoskins MD 04/25/2013 Nurse visit Kaylynn Walker SENIOR WRITER 04/17/2013 Office visit Kaylynn Mendez SENIOR WRITER 04/03/2013 Nurse visit Kaylynn Mendez SENIOR WRITER 04/03/2013 Office visit Terese Davidson MD 03/28/2013 Office visit Sundeep Russell SENIOR WRITER 03/21/2013 Office visit Kaylynn Mendez SENIOR WRITER 03/20/2013 Office visit Terese Davidson MD 03/14/2013 Nurse visit Kaylynn Mendez SENIOR WRITER 03/05/2013 Nurse visit Kaylynn Mendez SENIOR WRITER 02/19/2013 Office visit Terese Davidson MD 02/16/2013 Nurse visit Kaylynn Mendez SENIOR WRITER 02/09/2013 Office visit Sundeep Russell SENIOR WRITER 02/08/2013 Nurse visit Kaylynn Walker SENIOR WRITER 02/01/2013 Nurse visit Kaylynn Mendez SENIOR WRITER 01/26/2013 Nurse visit Sabrina Mendez HAND MOUNTER 01/25/2013 Office visit Kaylynn Mendez SENIOR WRITER 01/22/2013 Office visit Yoan Castaneda MD 01/18/2013 Nurse visit Kaylynn Walker SENIOR WRITER 01/11/2013 Nurse visit Kaylynn Walker SENIOR WRITER 01/05/2013 Nurse visit Kaylynn Walker SENIOR WRITER 12/29/2012 Office visit Kaylynn Mendez SENIOR WRITER 11/27/2012 Office visit Kaylynn Walker SENIOR WRITER 11/08/2012 Office visit Odell Tierney MD 11/08/2012 Voided Odell Tierney MD 11/07/2012 Office visit Kaylynn Andrea SENIOR WRITER 10/31/2012 [facility] John Hoskins MD 10/31/2012 Office visit Kaylynn Walker SENIOR WRITER 10/19/2012 Office visit Genoveva Ayala SENIOR WRITER 10/10/2012 Office visit Kaylynn Walker SENIOR WRITER 10/03/2012 Office visit Kaylynn Walker SENIOR WRITER 09/26/2012 Office visit Kaylynn Walker SENIOR WRITER 09/06/2012 Office visit Kaylynn Walker SENIOR WRITER 09/06/2012 Office visit Odell Tierney MD 08/31/2012 Voided Kaylynn Andrea SENIOR WRITER 07/28/2012 Office visit Kaylynn Walker SENIOR WRITER 07/27/2012 Office visit David Joyner DO 07/20/2012 [facility] 07/13/2012 [facility] David Joyner DO 07/11/2012 Office visit Kaylynn Andrea SENIOR WRITER 06/27/2012 [facility] Odell Tierney MD 06/21/2012 Office visit David Joyner DO 06/21/2012 Office visit Odell Tierney MD 06/20/2012 Office visit Brittni Yanez SENIOR WRITER 06/06/2012 Office visit Odell Tierney MD 05/03/2012 Office visit Kaylynn Mendez SENIOR WRITER 04/28/2012 Office visit Brittni Yanez SENIOR WRITER 04/11/2012 Office visit Kaylynn Walker SENIOR WRITER 04/06/2012 [facility] John Hoskins MD 03/30/2012 Office visit Kaylynn Walker SENIOR WRITER 03/15/2012 Office visit Kaylynn Mendez SENIOR WRITER 03/15/2012 Office visit Odell Tierney MD 02/09/2012 Office visit Kaylynn Walker SENIOR WRITER 12/23/2011 Office visit Kaylynn Walker SENIOR WRITER 11/02/2011 Office visit Kaylynn Walker SENIOR WRITER 10/14/2011 Office visit Kaylynn Walker SENIOR WRITER 09/27/2011 Office visit Kaylynn Mendez SENIOR WRITER 08/19/2011 Hospital Jhon Hoskins MD 08/18/2011 [facility] John Hoskins MD 08/18/2011 Office visit Kaylynn Walker SENIOR WRITER 08/02/2011 Office visit Kaylynn Walker SENIOR WRITER 07/08/2011 Office visit Kaylnyn Walker SENIOR WRITER 07/05/2011 Office visit Odell Tierney MD 06/15/2011 Office visit Kaylynn Walker SENIOR WRITER 05/14/2011 Office visit Kaylynn Walker SENIOR WRITER 05/11/2011 Office visit Odell Tierney MD 04/28/2011 Office visit Kaylynn Mendez SENIOR WRITER 03/02/2011 Office visit Chadd Norris DO 02/17/2011 [...]
--- OUTSIDE RECORDS SUMMARY | 2018-05-09 19:38 | XMS REPORT ---
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 Role Phone Kaylynn Mendez PCP Unavailable [...] 08/27/2014 use as directed for 99 days [place] 5-325 mg oral tablet 06/17/2014 06/27/2014 take [...] a day as needed for 30 days qxbqiklu-jhqyvgdsi-UK 3.5-10,000-1 mg/mL-unit/mL-% otic drops,suspension 201401/08/2015 instill 4 [...] Reviewed 04/28/2011 12:00 AM Decadron 1 mg ND#[id number] (Jr) Reviewed 04/28/2011 12:00 AM Depo-Medrol 80 mg NDC#[id number]-Tszlrefh Reviewed 05/11/2011 12:00 AM N BLOCK INJ OCCIPITAL Reviewed 05/11/2011 12:00 AM Kenalog Md-[address]-20 ANNA Reviewed 06/15/2011 12:00 AM COMPLETE CBC W/AUTO DIFF WBC Returned 06/15/2011 12:00 AM COMPREHEN METABOLIC PANEL Returned 07/08/2011 12:00 AM THER/PROPH/DIAG INJ SC/IM Reviewed 07/08/2011 12:00 AM Toradol,15mg ND#[id number], Brunildaer Reviewed 07/08/2011 12:00 AM Phenergan 50 Mg Im Nd 0783-9841-77 FP [place] Reviewed 08/02/2011 12:00 AM THER/PROPH/DIAG INJ SC/IM Reviewed 08/02/2011 12:00 AM Decadron 1 mg NDC#[id number] (Jr) Reviewed 08/02/2011 12:00 AM Depo-Medrol 80 mg NDC#[id number]-Fdeuchqm Reviewed 09/27/2011 12:00 AM THER/PROPH/DIAG INJ SC/IM Reviewed 09/27/2011 12:00 AM Depo-Medrol 80 mg NDC#[id number]-Wducyggx Reviewed 10/14/2011 12:00 AM X-RAY EXAM OF ABDOMEN Returned 10/14/2011 12:00 AM URINALYSIS AUTO W/O SCOPE Reviewed 12/23/2011 12:00 AM THER/PROPH/DIAG INJ SC/IM Reviewed 12/23/2011 12:00 AM Decadron 1 mg NDC#[id number] (Jr) Reviewed 12/23/2011 12:00 AM Depo-Medrol 80 mg NDC#[id number]-Pjwvqtsg Reviewed 02/09/2012 12:00 AM THER/PROPH/DIAG INJ SC/IM Reviewed 02/09/2012 12:00 AM Decadron 1 mg NDC#65410875319 (Jr) Reviewed 02/09/2012 12:00 AM Depo-Medrol 80 mg NDC#[id number]-Tvduggwc Reviewed 03/15/2012 12:00 AM N BLOCK INJ OCCIPITAL Reviewed 03/15/2012 12:00 AM Kenalog Qs-[address]-20 ANNA Reviewed 04/11/2012 12:00 AM COMPLETE CBC W/AUTO DIFF WBC Returned 04/11/2012 12:00 AM COMPREHEN METABOLIC PANEL Returned 04/11/2012 12:00 AM LIPID PANEL Returned 04/11/2012 12:00 AM ASSAY THYROID STIM HORMONE Returned 06/20/2012 12:00 AM THER/PROPH/DIAG INJ SC/IM Reviewed 06/20/2012 12:00 AM Decadron, Per 1 Mg [facility]# [address]-82 Reviewed 06/20/2012 12:00 AM Depo-Medrol, Per 80 Mg ND#4277-4730-00 Reviewed 09/06/2012 12:00 AM N BLOCK INJ OCCIPITAL Reviewed 09/06/2012 12:00 AM Kenalog Cv-[address]-20 ANNA Reviewed 09/06/2012 12:00 AM X-RAY EXAM RIBS UNI 2 VIEWS Returned 09/26/2012 12:00 AM THER/PROPH/DIAG INJ SC/IM Reviewed 09/26/2012 12:00 AM Decadron, Per 1 Mg [facility]# [address]-64 Reviewed 09/26/2012 12:00 AM Depo-Medrol, Per 80 Mg [facility]#2080-2218-93 Reviewed 10/03/2012 12:00 AM URINALYSIS AUTO W/O SCOPE Reviewed 10/03/2012 12:00 AM THER/PROPH/DIAG INJ SC/IM Reviewed 10/03/2012 12:00 AM Toradol 60 Mg [facility]#2369-0713-46 Reviewed 10/03/2012 12:00 AM Phenergan, 25Mg [facility]#0158-2858-66 Reviewed 10/19/2012 12:00 AM N BLOCK INJ OCCIPITAL Reviewed 10/19/2012 12:00 AM Kenalog, Per 10 Mg [facility]#6911-7782-83 Reviewed 10/19/2012 12:00 AM Toradol 30 Mg [facility]#6468-5744-76 Reviewed 10/19/2012 12:00 AM THER/PROPH/DIAG INJ SC/IM Reviewed 10/31/2012 12:00 AM COMPLETE CBC W/AUTO DIFF WBC Returned 10/31/2012 12:00 AM COMPREHEN METABOLIC PANEL Returned 10/31/2012 12:00 AM LIPID PANEL Returned 11/03/2012 12:[address] THORAX W/O & W/DYE Returned 11/08/2012 12:00 AM N BLOCK INJ OCCIPITAL Reviewed 11/08/2012 12:00 AM Kenalog Ao-[address]-20 ANNA Reviewed 11/27/2012 12:00 AM COMPLETE CBC [...] 1 Mg [facility]# [address]-76 Reviewed 01/25/2013 12:00 AM Depo-Medrol, Per 80 Mg [facility]#7910-6982-04 Reviewed 01/26/2013 12:00 AM IMMUNOTHERAPY INJECTIONS Returned [...] 1 Mg [facility]# [address]-68 Reviewed 05/16/2013 12:00 AM Depo-Medrol, Per 80 Mg [facility]#6933-4311-92 Reviewed 05/31/2013 12:00 AM IMMUNOTHERAPY INJECTIONS Reviewed 06/08/2013 12:00 AM IMMUNOTHERAPY INJECTIONS Reviewed 06/14/2013 12:00 AM IMMUNOTHERAPY INJECTIONS Reviewed 06/28/2013 12:00 AM IMMUNOTHERAPY INJECTIONS Reviewed 07/12/2013 12:00 AM X-RAY EXAM RIBS UNI 2 VIEWS Returned 07/18/2013 12:00 AM Toradol 60 Mg [facility]#1504-6450-76 Reviewed 07/18/2013 12:00 AM THER/PROPH/DIAG INJ SC/IM [...] 1 Mg [facility]# [address]-00 Reviewed 09/14/2013 12:00 AM Depo-Medrol, Per 80 Mg [facility]#1139-9895-44 Reviewed 09/20/2013 12:00 AM IMMUNOTHERAPY INJECTIONS Reviewed [...] INJ OCCIPITAL Reviewed 12/10/2009 12:00 AM Kenalog Oi-[address]-20 ANNA Reviewed 12/16/2009 12:00 AM HIV-1ANTIBODY Reviewed 12/16/2009 12:00 AM COMPLETE CBC W/AUTO DIFF WBC Reviewed 12/16/2009 12:00 AM METABOLIC PANEL TOTAL CA Reviewed 12/16/2009 12:00 AM Type and screen Reviewed 12/16/2009 12:00 AM PROTHROMBIN TIME Reviewed 12/16/2009 12:00 AM THROMBOPLASTIN TIME PARTIAL Reviewed 03/18/2010 12:00 AM DRAIN/INJ JOINT/BURSA W/O US Reviewed 03/18/2010 12:[address]-[address]-20 ANNA Reviewed 11/21/2013 12:00 AM RADEX HAND MINIMUM 3 VIEWS Returned 06/03/2010 12:00 AM INJ TRIGGER POINT 1/2 MUSCL Reviewed 06/03/2010 12:00 AM Kenalog per 10Mg Im-Ndc#[address]-65(Niall) Reviewed 12/05/2013 12:00 AM COMPLETE CBC W/AUTO [...] Reviewed 07/23/2010 12:00 AM Kenalog per 10Mg Im-Ndc#[address]-74(Niall) Reviewed 2014 12:00 AM COMPLETE CBC W/AUTO [...] INJ OCCIPITAL Reviewed 10/01/2010 12:00 AM Kenalog Th-[address]-20 ANNA Reviewed 07/25/2014 12:00 AM THER/PROPH/DIAG INJ [...] 0.60 mg/dLCALCIUM 10.90 mg/ dLeGFR >60 mL/min/1.73 [id number] 45.0 U/L 08/31/2013 10:54 AM GLUCOSE 255.0 [...] 0.40 mg/ dLCALCIUM 10.60 mg/dLeGFR >60 mL/min/1.73 [id number] 369.0 mg/ dLCHOLESTEROL 153.0 mg/dLHDL 26.0 mg/dLLDL [...] BILI 0.30 mg/dLCALCIUM 10.0 mg/dLeGFR >60 mL/min/1.73 [id number] YELLOW APPEARANCE CLEAR SPEC GRAV 1.010 pH 5.5 PROTEIN NEGATIVE GLUCOSE NEGATIVE KETONE NEGATIVE BILIRUBIN NEGATIVE BLOOD NEGATIVE NITRITE NEGATIVE LEUK SCREEN NEGATIVE Est Avg Glucose 134.1 mg/dLMICROALBUMIN UR <0.5 MG/DL 02/13/2015 4:38 PM RMSF, IgG, EIA Negative [facility] Spotted Fever,IgM 0.51 E. chaffeensis [...] 141 Influenza 04/24/2014 sanofi pasteur PMC Fluzone [id number] Intramuscular Left Upper Arm 02/27/2014 01/15/2014 141 Influenza 02/13/2015 sanofi pasteur PMC Fluzone [id number] Intramuscular Left Deltoid 02/13/2015 01/03/2015 140 History [...] Date Medicare Part A Medicare Part A [id number] N/A [facility] [id number] [id number] May [facility] Plan of [id number] Wednesday, 2012 Medicare Part B Medicare Of [place] [id number] Monday, 2000 [place] [facility] Assistance [facility] Medical Assistance Pro [id number] Tuesday, 2009 History of Encounters Visit Date Visit Type Provider 03/12/2015 Office visit Kaylynn Mendez ADOLESCENT COUNSELOR 02/26/2015 Office visit Brittni Yanez ADOLESCENT COUNSELOR 02/13/2015 Office visit Heena Dumont MD 01/15/2015 Office visit Brittni Yanez ADOLESCENT COUNSELOR 01/13/2015 Office visit Heena Dumont MD 01/08/[address] Carol Fowler MD 01/01/2015 Office visit Brittni Yanez ADOLESCENT COUNSELOR 12/13/2014 Office visit Heena Dumont MD 11/27/2014 Office visit Kaylynn Mendez ADOLESCENT COUNSELOR 11/14/2014 Office visit Heena Dumont MD 10/18/2014 Office visit Heena Dumont MD 10/17/2014 [facility] John Hoskins MD 10/09/2014 Office visit Heena Dumont MD 09/25/2014 Office visit Heena Dumont MD 09/17/2014 Office visit Kaylynn Mendez ADOLESCENT COUNSELOR 09/04/2014 Office visit Heena Dumont MD 08/28/2014 Office visit Kaylynn Mendez ADOLESCENT COUNSELOR 08/23/2014 [facility] Hoskins MD 08/01/2014 Office visit Kaylynn Mendez ADOLESCENT COUNSELOR 07/29/2014 Office visit Heena Dumont MD 07/25/2014 Nurse visit Heena Dumont MD 07/17/2014 Office visit Kaylynn Mendez ADOLESCENT COUNSELOR 07/11/2014 Office visit Heena Dumont MD 07/01/2014 Office visit Heena Dumont MD 06/25/2014 Office visit Kaylynn Mendez ADOLESCENT COUNSELOR 06/12/2014 Office visit Kaylynn Mendez ADOLESCENT COUNSELOR 06/06/2014 Office visit Kaylynn Mendez ADOLESCENT COUNSELOR 05/27/2014 Office visit Heena Dumont MD 04/20/2014 Office visit Yesica Falcon ADOLESCENT COUNSELOR 03/29/2014 Office visit Na Jones ADOLESCENT COUNSELOR 03/15/2014 Office visit Heena Dumont MD 2014 Office visit Heena Dumont MD 2014 [facility] MD 02/27/2014 Nurse visit Heena Dumont MD 02/13/2014 Office visit Lena El ADOLESCENT COUNSELOR 02/07/2014 Office visit Heena Dumont MD 02/03/2014 Office visit Na Jones ADOLESCENT COUNSELOR 01/30/2014 Office visit Kaylynn Walker ADOLESCENT COUNSELOR 01/24/2014 Office visit Sundeep Russell ADOLESCENT COUNSELOR 01/16/2014 Office visit Kaylynn Walker ADOLESCENT COUNSELOR 01/10/2014 Nurse visit Kaylynn Walker ADOLESCENT COUNSELOR 01/08/2014 Office visit Kaylynn Walker ADOLESCENT COUNSELOR 12/05/2013 Office visit Kaylynn Walker ADOLESCENT COUNSELOR 11/21/2013 Office visit Kaylynn Walker ADOLESCENT COUNSELOR 10/23/2013 Office visit Brittni Yanez ADOLESCENT COUNSELOR 10/17/2013 Nurse visit Heena Dumont MD 10/12/2013 Office visit Kaylynn Mendez ADOLESCENT COUNSELOR 10/02/2013 Office visit Heena Dumont MD 09/20/2013 Nurse visit Kaylynn Mendez ADOLESCENT COUNSELOR 09/20/2013 Voided Heena Dumont MD 09/14/2013 Office visit Kaylynn Walker ADOLESCENT COUNSELOR 09/05/2013 Office visit Sundeep Russell ADOLESCENT COUNSELOR 09/04/2013 Nurse visit Kaylynn Walker ADOLESCENT COUNSELOR 08/31/2013 Office visit Kaylynn Walker ADOLESCENT COUNSELOR 08/23/2013 Office visit Heena Dumont MD 08/10/2013 Office visit Kaylynn Walker ADOLESCENT COUNSELOR 07/25/2013 Office visit Kaylynn Walker ADOLESCENT COUNSELOR 07/18/2013 Office visit Kaylynn Walker ADOLESCENT COUNSELOR 07/12/2013 Office visit Kaylynn Walker ADOLESCENT COUNSELOR 06/28/2013 Nurse visit Kaylynn Walker ADOLESCENT COUNSELOR 06/14/2013 Nurse visit Kaylynn Walker ADOLESCENT COUNSELOR 06/08/2013 Nurse visit Kaylynn Walker ADOLESCENT COUNSELOR 05/31/2013 Nurse visit Chadd Norris DO 05/18/2013 Office visit Terese Davidson MD 05/16/2013 Office visit Kaylynn Walker ADOLESCENT COUNSELOR 05/09/2013 Office visit Kaylynn Walker ADOLESCENT COUNSELOR 04/29/2013 [facility] John Hoskins MD 04/25/2013 Nurse visit Kaylynn Walker ADOLESCENT COUNSELOR 04/17/2013 Office visit Kaylynn Walker ADOLESCENT COUNSELOR 04/03/2013 Nurse visit Kaylynn Walker ADOLESCENT COUNSELOR 04/03/2013 Office visit Terese Davidson MD 03/28/2013 Office visit Sundeep Russell ADOLESCENT COUNSELOR 03/21/2013 Office visit aKylynn Mendez ADOLESCENT COUNSELOR 03/20/2013 Office visit Terese Davidson MD 03/14/2013 Nurse visit Kaylynn Mendez ADOLESCENT COUNSELOR 03/05/2013 Nurse visit Kaylynn Mendez ADOLESCENT COUNSELOR 02/19/2013 Office visit Terese Davidson MD 02/16/2013 Nurse visit Kaylynn Mendez ADOLESCENT COUNSELOR 02/09/2013 Office visit Sundeep Russell ADOLESCENT COUNSELOR 02/08/2013 Nurse visit Kaylynn Mendez ADOLESCENT COUNSELOR 02/01/2013 Nurse visit Kaylynn Andrea ADOLESCENT COUNSELOR 01/26/2013 Nurse visit Sabrina Mendez LINE REPAIRER TOWER 01/25/2013 Office visit Kaylynn Walker ADOLESCENT COUNSELOR 01/22/2013 Office visit Yoan Castaneda MD 01/18/2013 Nurse visit Kaylynn Walker ADOLESCENT COUNSELOR 01/11/2013 Nurse visit Kaylynn Walker ADOLESCENT COUNSELOR 01/05/2013 Nurse visit Kaylynn Walker ADOLESCENT COUNSELOR 12/29/2012 Office visit Kaylynn Walker ADOLESCENT COUNSELOR 11/27/2012 Office visit Kaylynn Mendez ADOLESCENT COUNSELOR 11/08/2012 Office visit Odell Tierney MD 11/08/2012 Voided Odell Tierney MD 11/07/2012 Office visit Kaylynn Mendez ADOLESCENT COUNSELOR 10/31/2012 [facility] John Hoskins MD 10/31/2012 Office visit Kaylynn Mendez ADOLESCENT COUNSELOR 10/19/2012 Office visit Genoveva Ayala ADOLESCENT COUNSELOR 10/10/2012 Office visit Kaylynn Mendez ADOLESCENT COUNSELOR 10/03/2012 Office visit Kaylynn Mendez ADOLESCENT COUNSELOR 09/26/2012 Office visit Kaylynn Mendze ADOLESCENT COUNSELOR 09/06/2012 Office visit Kaylynn Mendez ADOLESCENT COUNSELOR 09/06/2012 Office visit Odell Tierney MD 08/31/2012 Voided Kaylynn Mendez ADOLESCENT COUNSELOR 07/28/2012 Office visit Kaylynn Mendez ADOLESCENT COUNSELOR 07/27/2012 Office visit David Joyner DO 07/20/2012 [facility] David Ar DO 07/13/2012 [facility] DO 07/11/2012 Office visit Kaylynn Mendez ADOLESCENT COUNSELOR 06/27/2012 [facility] Odell Tierney MD 06/21/2012 Office visit David Joyner DO 06/21/2012 Office visit Odell Tierney MD 06/20/2012 Office visit Brittni Yanez ADOLESCENT COUNSELOR 06/06/2012 Office visit Odell Tierney MD 05/03/2012 Office visit Kaylynn Mendez ADOLESCENT COUNSELOR 04/28/2012 Office visit Brittni Yanez ADOLESCENT COUNSELOR 04/11/2012 Office visit Kaylynn Mendez ADOLESCENT COUNSELOR 04/06/2012 [facility] John Hoskins MD 03/30/2012 Office visit Kaylynn Mendez ADOLESCENT COUNSELOR 03/15/2012 Office visit Kaylynn Mendez ADOLESCENT COUNSELOR 03/15/2012 Office visit Odell Tierney MD 02/09/2012 Office visit Kaylynn Mendez ADOLESCENT COUNSELOR 12/23/2011 Office visit Kaylynn Mendez ADOLESCENT COUNSELOR 11/02/2011 Office visit Kaylynn Mendez ADOLESCENT COUNSELOR 10/14/2011 Office visit Kaylynn Mendez ADOLESCENT COUNSELOR 09/27/2011 Office visit Kaylynn Mendez ADOLESCENT COUNSELOR 08/19/2011 [facility] Hos[facility] MD 08/18/2011 [facility] Hoskins MD 08/18/2011 Office visit Kaylynn Mendez ADOLESCENT COUNSELOR 08/02/2011 Office visit Kaylynn Mendez ADOLESCENT COUNSELOR 07/08/2011 Office visit Kaylynn Mendez ADOLESCENT COUNSELOR 07/05/2011 Office visit Odell Tierney MD 06/15/2011 Office visit Kaylynn Mendez ADOLESCENT COUNSELOR 05/14/2011 Office visit Kaylynn Mendez ADOLESCENT COUNSELOR 05/11/2011 Office visit Odell Tierney MD 04/28/2011 Office visit Kaylynn Andrea ADOLESCENT COUNSELOR 03/02/2011 Office visit Chadd Norris DO 02/17/2011 [...]
--- OUTSIDE RECORDS SUMMARY | 2018-05-09 19:43 | XMS REPORT ---
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.] and remove at bedtime for 14 days Discontinued Name Start Date [...] mL in 24 hours Chantix Starting Month Smion 0.5 mg (11)- 1 mg (42) oral [...] HC BMI BSA BMI Percentile O2 Sat(%) 06/04/2016 11:01:00 AM 120 mmHg 74 mmHg [...] 159.5 lbs 64 in 27.3778 kg/m 1.8075 03/02/2011 2:57:00 PM 134 mmHg 78 [...] Reviewed 04/28/2011 12:00 AM Decadron 1 mg ND#[id number] (Jr) Reviewed 04/28/2011 12:00 AM Depo-Medrol 80 mg ND#[id number]-Bckqehzw Reviewed 09/02/2015 12:00 AM Toradol 60 Mg ND#9129-5713-00 Reviewed 09/02/2015 12:00 AM Phenergan, Up to 50 Mg [facility] Medicaid Reviewed 09/16/2015 12:00 AM Toradol 60 Mg ND#6627-9526-92 Reviewed 09/16/2015 12:00 AM Phenergan Up to 50 mg [facility] Medicare Reviewed 05/11/2011 12:00 AM N BLOCK INJ OCCIPITAL Reviewed 05/11/2011 12:00 AM Kenalog At-[address]-20 ANNA Reviewed 11/13/2015 12:00 AM ASSAY OF [...] 07/08/2011 12:00 AM Toradol,15mg [facility]#[id number], [place] Reviewed 07/08/2011 12:00 AM Phenergan 50 Mg Im [facility] 3001-0421-37 [facility] Reviewed 01/21/2016 12:00 AM ECG MONIT/REPRT UP TO 48 HRS Returned 08/02/2011 12:00 AM THER/PROPH/DIAG INJ SC/IM Reviewed 08/02/2011 12:00 AM Decadron 1 mg [facility]#[id number] (Jr) Reviewed 08/02/2011 12:00 AM Depo-Medrol 80 mg [facility]#[id number] Reviewed 03/05/2016 12:00 AM COMPLETE CBC W/AUTO DIFF WBC Returned 03/05/2016 12:00 AM STREP A ASSAY W/OPTIC Returned 03/05/2016 12:00 AM C-REACTIVE PROTEIN Returned 03/18/2016 12:00 AM [facility] MEDICARE - flu vaccine administration Reviewed [...] AM Depo-Medrol 80 mg [facility]#[id number]-Jsbmgksn Reviewed 10/14/2011 12:00 AM X-RAY EXAM OF ABDOMEN Reviewed 10/14/2011 12:00 AM URINALYSIS AUTO W/O SCOPE Reviewed 12/23/2011 12:00 AM THER/PROPH/DIAG INJ SC/IM Reviewed 12/23/2011 12:00 AM Decadron 1 mg [facility]#[id number] (Jr) Reviewed 12/23/2011 12:00 AM Depo-Medrol 80 mg [facility]#[id number]-Mbjolwgk Reviewed 02/09/2012 12:00 AM THER/PROPH/DIAG INJ SC/IM Reviewed 02/09/2012 12:00 AM Decadron 1 mg [facility]#[id number] (Jr) Reviewed 02/09/2012 12:00 AM Depo-Medrol 80 mg N[facility]#[id number]-Btwvnxjl Reviewed 03/15/2012 12:00 AM N BLOCK INJ OCCIPITAL Reviewed 03/15/2012 12:00 AM Kenalog Hy-[address]-20 ANNA Reviewed 04/11/2012 12:00 AM COMPLETE CBC W/AUTO DIFF WBC Reviewed 04/11/2012 12:00 AM COMPREHEN METABOLIC PANEL Reviewed 04/11/2012 12:00 AM LIPID PANEL Reviewed 04/11/2012 12:00 AM ASSAY THYROID STIM HORMONE Reviewed 06/20/2012 12:00 AM THER/PROPH/DIAG INJ SC/IM Reviewed 06/20/2012 12:00 AM Decadron, Per 1 Mg ND# [address]-53 Reviewed 06/20/2012 12:00 AM Depo-Medrol, Per 80 Mg ND#7525-7815-29 Reviewed 09/06/2012 12:00 AM N BLOCK INJ OCCIPITAL Reviewed 09/06/2012 12:00 AM Kenalog Ux-[address]-20 ANNA Reviewed 09/06/2012 12:00 AM X-RAY EXAM RIBS UNI 2 VIEWS Reviewed 09/26/2012 12:00 AM THER/PROPH/DIAG INJ SC/IM Reviewed 09/26/2012 12:00 AM Decadron, Per 1 Mg ND# [address]-42 Reviewed 09/26/2012 12:00 AM Depo-Medrol, Per 80 Mg ND#0537-7538-07 Reviewed 10/03/2012 12:00 AM URINALYSIS AUTO W/O SCOPE Reviewed 10/03/2012 12:00 AM THER/PROPH/DIAG INJ SC/IM Reviewed 10/03/2012 12:00 AM Toradol 60 Mg ND#3063-5396-07 Reviewed 10/03/2012 12:00 AM Phenergan, 25Mg ND#9869-6108-34 Reviewed 10/19/2012 12:00 AM N BLOCK INJ OCCIPITAL Reviewed 10/19/2012 12:00 AM Kenalog, Per 10 Mg [facility]#6762-1064-66 Reviewed 10/19/2012 12:00 AM Toradol 30 Mg ND#1160-6805-70 Reviewed 10/19/2012 12:00 AM THER/PROPH/DIAG INJ SC/IM Reviewed 10/31/2012 12:00 AM COMPLETE CBC W/AUTO DIFF WBC Reviewed 10/31/2012 12:00 AM COMPREHEN METABOLIC PANEL Reviewed 10/31/2012 12:00 AM LIPID PANEL Reviewed 11/03/2012 12:[address] THORAX W/O & W/DYE Reviewed 11/08/2012 12:00 AM N BLOCK INJ OCCIPITAL Reviewed 11/08/2012 12:00 AM Kenalog Jx-[address]-20 ANNA Reviewed 11/27/2012 12:00 AM COMPLETE CBC [...] Per 1 Mg [facility]# [address]-82 Reviewed 01/25/2013 12:00 AM Depo-Medrol, Per 80 Mg [facility]#6326-5290-17 Reviewed 01/26/2013 12:00 AM IMMUNOTHERAPY INJECTIONS Reviewed [...] Per 1 Mg [facility]# [address]-93 Reviewed 05/16/2013 12:00 AM Depo-Medrol, Per 80 Mg [facility]#5698-9476-35 Reviewed 05/31/2013 12:00 AM IMMUNOTHERAPY INJECTIONS Reviewed 06/08/2013 12:00 AM IMMUNOTHERAPY INJECTIONS Reviewed 06/14/2013 12:00 AM IMMUNOTHERAPY INJECTIONS Reviewed 06/28/2013 12:00 AM IMMUNOTHERAPY INJECTIONS Reviewed 07/12/2013 12:00 AM X-RAY EXAM RIBS UNI 2 VIEWS Reviewed 07/18/2013 12:00 AM Toradol 60 Mg [facility]#2825-4202-30 Reviewed 07/18/2013 12:00 AM THER/PROPH/DIAG INJ SC/IM Reviewed 08/23/2013 12:00 AM COMPLETE CBC W/AUTO DIFF WBC Reviewed 08/23/2013 12:00 AM COMPREHEN METABOLIC PANEL Reviewed 08/23/2013 12:00 AM LIPID PANEL Reviewed 08/31/2013 12:00 AM X-RAY EXAM OF LOWER LEG Reviewed 09/04/2013 12:00 AM IMMUNOTHERAPY INJECTIONS Reviewed 09/14/2013 12:00 AM THER/PROPH/DIAG INJ SC/IM Reviewed 09/14/2013 12:00 AM Decadron, Per 1 Mg [facility]# [address]-64 Reviewed 09/14/2013 12:00 AM Depo-Medrol, Per 80 Mg [facility]#4740-9620-72 Reviewed 09/20/2013 12:00 AM IMMUNOTHERAPY INJECTIONS Reviewed [...] INJ OCCIPITAL Reviewed 12/10/2009 12:00 AM Kenalog Sq-[address]-20 ANNA Reviewed 12/16/2009 12:00 AM HIV-1ANTIBODY Reviewed 12/16/2009 12:00 AM COMPLETE CBC W/AUTO DIFF WBC Reviewed 12/16/2009 12:00 AM METABOLIC PANEL TOTAL CA Reviewed 12/16/2009 12:00 AM Type and screen Reviewed 12/16/2009 12:00 AM PROTHROMBIN TIME Reviewed 12/16/2009 12:00 AM THROMBOPLASTIN TIME PARTIAL Reviewed 03/18/2010 12:00 AM DRAIN/INJ JOINT/BURSA W/O US Reviewed 03/18/2010 12:00 AM Kenalog Tm-[address]-20 ANNA Reviewed 11/21/2013 12:00 AM RADEX HAND MINIMUM 3 VIEWS Reviewed 06/03/2010 12:00 AM INJ TRIGGER POINT 1/2 MUSCL Reviewed 06/03/2010 12:00 AM Kenalog per 10Mg [facility]#[address]-85(Niall) Reviewed 12/05/2013 12:00 AM COMPLETE CBC W/AUTO [...] Reviewed 07/23/2010 12:00 AM Kenalog per 10Mg [facility]#[address]-49(Niall) Reviewed 2014 12:00 AM COMPLETE CBC W/AUTO [...] INJ OCCIPITAL Reviewed 10/01/2010 12:00 AM Kenalog Yi-[address]-20 ANNA Reviewed 07/25/2014 12:00 AM THER/PROPH/DIAG INJ [...] Quant,IgM <0.80 RMSF , IgG, EIA Negative [facility] Spotted Fever,IgM 0.51 E. chaffeensis [...] 141 Influenza 04/24/2014 sanofi pasteur PMC Fluzone [id number] Intramuscular Left Upper Arm 02/27/2014 01/15/2014 141 Influenza 02/13/2015 sanofi pasteur PMC Fluzone [id number] Intramuscular Left Deltoid 02/13/2015 01/03/2015 140 Tdap 06/06/2015 [employer] SKB BOOSTRIX [id number] Intramuscular Left Deltoid 06/06/2015 07/23/2014 115 Influenza 03/18/2016 sanofi pasteur PMC Fluzone [id number] Intramuscular Left Deltoid 03/17/2016 01/03/2015 141 History [...] stenosis, cervical region Jun 04 2016 11:05AM Payers Insurance Name Company Name Plan Name Plan Number Policy Number Policy Group Number Start Date Medicare Part A Medicare [facility] [id number] N/A [facility] Comm [id number] N/A Medicare Part A Medicare - Lab/ay [id number] N/A Medicare Part B Medicare Of [place] [id number] Monday, February 28, 2000 [place] [employer] [place] [employer] [id number] Tuesday, November 10, 2009 Medicare Part A Medicare Part A [id number] N/A [place] [employer] - [facility] [place] [employer] - [facility] [id number] May [facility] Comm Plan of [id number] Wednesday, May 30, 2012 History of Encounters Visit Date Visit Type Provider 06/04/2016 Office visit Heena Dumont MD 05/13/2016 Office visit Heena Dumont MD 05/03/2016 Office visit Heena Dumont MD 04/26/2016 Office visit Kaylynn Mendez SECURITY OFFICER 04/14/2016 Office visit Heena Dumont MD 04/13/2016 Office visit Kaylynn Mendez SECURITY OFFICER 04/02/2016 Office visit Lena El SECURITY OFFICER 04/02/2016 Office visit Heena Dumont MD 03/26/2016 Office visit Yesica Falcon SECURITY OFFICER 03/17/2016 Office visit Heena Dumont MD 03/05/2016 Office visit Kaylynn Mendez SECURITY OFFICER 02/16/2016 Office visit Heena Dumont MD 02/14/2016 Office visit Na Jones SECURITY OFFICER 01/16/2016 Office visit Heena Dumont MD 12/16/2015 Office visit Heena Dumont MD 11/24/2015 Office visit Kaylynn Mendez SECURITY OFFICER 11/18/2015 Office visit Heena Dumont MD 11/03/2015 Office visit Sundeep Russell SECURITY OFFICER 10/20/2015 Office visit Kaylynn Mendez SECURITY OFFICER 09/23/2015 Office visit Kaylynn Mendez SECURITY OFFICER 09/16/[address] Pepe Figueroa MD 09/02/2015 Office visit Kaylynn Mendze SECURITY OFFICER 09/01/2015 Office visit Kaylynn Mendez SECURITY OFFICER 07/30/2015 Office visit Heena Dumont MD 07/15/2015 Office visit Kaylynn Mendez SECURITY OFFICER 07/04/2015 Office visit Heena Dumont MD 06/06/2015 Office visit Heena Dumont MD 06/06/2015 Office visit Kaylynn Mendez SECURITY OFFICER 06/02/2015 Office visit Kaylynn Mendez SECURITY OFFICER 05/26/2015 Office visit Kaylynn Mendez SECURITY OFFICER 05/20/2015 Office visit Kaylynn Mendez SECURITY OFFICER 05/08/2015 Office visit eHena Dumont MD 05/06/2015 Office visit Kaylynn Mendez SECURITY OFFICER 04/29/2015 Office visit Kaylynn Mendez SECURITY OFFICER 03/27/2015 Voided Brittni Yanez SECURITY OFFICER 03/21/2015 Office visit Heena Dumont MD 03/12/2015 Office visit Kaylynn Mendez SECURITY OFFICER 02/26/2015 Office visit Brittni Yanez SECURITY OFFICER 02/13/2015 Office visit Heena Dumont MD 01/15/2015 Office visit Brittni Yanez SECURITY OFFICER 01/13/2015 Office visit Heena Dumont MD 01/08/[address] Carol Fowler MD 01/01/2015 Office visit Brittni Yanez SECURITY OFFICER 12/13/2014 Office visit Heena Dumont MD 11/27/2014 Office visit Kaylynn Mendez SECURITY OFFICER 11/14/2014 Office visit Heena Dumont MD 10/18/2014 Office visit Heena Dumont MD 10/17/2014 [facility] John Hoskins MD 10/09/2014 Office visit Heena Dumont MD 09/25/2014 Office visit Heena Dumont MD 09/17/2014 Office visit Kaylynn Mendez SECURITY OFFICER 09/04/2014 Office visit Heena Dumont MD 08/28/2014 Office visit Kaylynn Mendez SECURITY OFFICER 08/23/2014 [facility] John Hoskins MD 08/01/2014 Office visit Kaylynn Mendez SECURITY OFFICER 07/29/2014 Office visit Heena Dumont MD 07/25/2014 Nurse visit Heena Dumont MD 07/17/2014 Office visit Kaylynn Mendez SECURITY OFFICER 07/11/2014 Office visit Heena Dumont MD 07/01/2014 Office visit Heena Dumont MD 06/25/2014 Office visit Kaylynn Mendez SECURITY OFFICER 06/12/2014 Office visit Kaylynn Mendez SECURITY OFFICER 06/06/2014 Office visit Kaylynn Mendez SECURITY OFFICER 05/27/2014 Office visit Heena Dumont MD 04/20/2014 Office visit Yesica Falcon SECURITY OFFICER 03/29/2014 Office visit Na Jones SECURITY OFFICER 03/15/2014 Office visit Heena Dumont MD 2014 Office visit Heena Dumont MD 2014 [facility] John Hoskins MD 02/27/2014 Nurse visit Heena Dumont MD 02/13/2014 Office visit Lena El SECURITY OFFICER 02/07/2014 Office visit Heena Dumont MD 02/03/2014 Office visit Na Jones SECURITY OFFICER 01/30/2014 Office visit Kaylynn Mendez SECURITY OFFICER 01/24/2014 Office visit Sundeep Russell SECURITY OFFICER 01/16/2014 Office visit Kaylynn Mendez SECURITY OFFICER 01/10/2014 Nurse visit Kaylynn Mendez SECURITY OFFICER 01/08/2014 Office visit Kaylynn Mendez SECURITY OFFICER 12/05/2013 Office visit Kaylynn Mendez SECURITY OFFICER 11/21/2013 Office visit Kaylynn Mendez SECURITY OFFICER 10/23/2013 Office visit Brittni Yanez SECURITY OFFICER 10/17/2013 Nurse visit Heena Dumont MD 10/12/2013 Office visit Kaylynn Mendez SECURITY OFFICER 10/02/2013 Office visit Heena Dumont MD 09/20/2013 Nurse visit Kaylynn Mendez SECURITY OFFICER 09/20/2013 Voided Heena Dumont MD 09/14/2013 Office visit Kaylynn Walker SECURITY OFFICER 09/05/2013 Office visit Sundeep Russell SECURITY OFFICER 09/04/2013 Nurse visit Kaylynn Walker SECURITY OFFICER 08/31/2013 Office visit Kaylynn Walker SECURITY OFFICER 08/23/2013 Office visit Heena Dumont MD 08/10/2013 Office visit Kaylynn Walker SECURITY OFFICER 07/25/2013 Office visit Kaylynn Walker SECURITY OFFICER 07/18/2013 Office visit Kaylynn Walker SECURITY OFFICER 07/12/2013 Office visit Kaylynn Walker SECURITY OFFICER 06/28/2013 Nurse visit Kaylynn Walker SECURITY OFFICER 06/14/2013 Nurse visit Kaylynn Walker SECURITY OFFICER 06/08/2013 Nurse visit Kaylynn Walker SECURITY OFFICER 05/31/2013 Nurse visit Chadd Norris DO 05/18/2013 Office visit Terese Davidson MD 05/16/2013 Office visit Kaylynn Walker SECURITY OFFICER 05/09/2013 Office visit Kaylynn Walker SECURITY OFFICER 04/29/2013 [facility] John Hoskins MD 04/25/2013 Nurse visit Kaylynn Walker SECURITY OFFICER 04/17/2013 Office visit Kaylynn Walker SECURITY OFFICER 04/03/2013 Nurse visit Kaylynn Walker SECURITY OFFICER 04/03/2013 Office visit Terese Davidson MD 03/28/2013 Office visit Sundeep Russell SECURITY OFFICER 03/21/2013 Office visit Kaylynn Mendez SECURITY OFFICER 03/20/2013 Office visit Terese Davidson MD 03/14/2013 Nurse visit Kaylynn Walker SECURITY OFFICER 03/05/2013 Nurse visit Kaylynn Mendez SECURITY OFFICER 02/19/2013 Office visit Terese Davidson MD 02/16/2013 Nurse visit Kayylnn Walker SECURITY OFFICER 02/09/2013 Office visit Sundeep Russell SECURITY OFFICER 02/08/2013 Nurse visit Kaylynn Walker SECURITY OFFICER 02/01/2013 Nurse visit Kaylynn Walker SECURITY OFFICER 01/26/2013 Nurse visit Sabrina Mendez HIGH RISK OB 01/25/2013 Office visit Kaylynn Walker SECURITY OFFICER 01/22/2013 Office visit Yoan Castaneda MD 01/18/2013 Nurse visit Kaylynn Walker SECURITY OFFICER 01/11/2013 Nurse visit Kaylynn Walker SECURITY OFFICER 01/05/2013 Nurse visit Kaylynn Walker SECURITY OFFICER 12/29/2012 Office visit Kaylynn Walker SECURITY OFFICER 11/27/2012 Office visit Kaylynn Walker SECURITY OFFICER 11/08/2012 Office visit Odell Tierney MD 11/08/2012 Voided Odell Tierney MD 11/07/2012 Office visit Kaylynn Mendez SECURITY OFFICER 10/31/2012 [facility] John Hoskins MD 10/31/2012 Office visit Kaylynn Mendez SECURITY OFFICER 10/19/2012 Office visit Genoveva Ayala SECURITY OFFICER 10/10/2012 Office visit Kaylynn Mendez SECURITY OFFICER 10/03/2012 Office visit Kaylynn Walker SECURITY OFFICER 09/26/2012 Office visit Kaylynn Walker SECURITY OFFICER 09/06/2012 Office visit Kaylynn Andrea SECURITY OFFICER 09/06/2012 Office visit Odell Tierney MD 08/31/2012 Voided Kaylynn Mendez SECURITY OFFICER 07/28/2012 Office visit Kaylynn Walker SECURITY OFFICER 07/27/2012 Office visit David Joyner DO 07/20/2012 Hospital David Sheriffuman DO 07/13/2012 Hospital David Bouman DO 07/11/2012 Office visit Kaylynn Mendez SECURITY OFFICER 06/27/2012 Hospital Odell Tierney MD 06/21/2012 Office visit David Joyner DO 06/21/2012 Office visit Odell Tierney MD 06/20/2012 Office visit Brittni Yanez SECURITY OFFICER 06/06/2012 Office visit Odell Tierney MD 05/03/2012 Office visit Kaylynn Mendez SECURITY OFFICER 04/28/2012 Office visit Brittni Yanez SECURITY OFFICER 04/11/2012 Office visit Kaylynn Mendez SECURITY OFFICER 04/06/2012 Hospital John Hoskins MD 03/30/2012 Office visit Kaylynn Mendez SECURITY OFFICER 03/15/2012 Office visit Kaylynn Mendez SECURITY OFFICER 03/15/2012 Office visit Odell Tierney MD 02/09/2012 Office visit Kaylynn Mendez SECURITY OFFICER 12/23/2011 Office visit Kaylynn Mendez SECURITY OFFICER 11/02/2011 Office visit Kaylynn Mendez SECURITY OFFICER 10/14/2011 Office visit Kaylynn Walker SECURITY OFFICER 09/27/2011 Office visit Kaylynn Mendez SECURITY OFFICER 08/19/2011 Hospital John Hoskins MD 08/18/2011 [facility] John Hoskins MD 08/18/2011 Office visit Kaylynn Mendez SECURITY OFFICER 08/02/2011 Office visit Kaylynn Mendez SECURITY OFFICER 07/08/2011 Office visit Kaylynn Mendez SECURITY OFFICER 07/05/2011 Office visit Odell Tierney MD 06/15/2011 Office visit Kaylynn Mendez SECURITY OFFICER 05/14/2011 Office visit Kaylynn Mendez SECURITY OFFICER 05/11/2011 Office visit Odell Tierney MD 04/28/2011 Office visit Kaylynn Mendez SECURITY OFFICER 03/02/2011 Office visit Chadd Norris DO 02/17/2011 [...]
--- OUTSIDE RECORDS SUMMARY | 2018-05-09 19:48 | XMS REPORT ---
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 DO NOT CRUSH, CHEW AND/OR DIVIDE. FOR 30 DAYS Geodon 60 mg oral [...] 10/06/2016 take 0.5 tablet only as needed. Name Start Date Expiration Date [...] 08/27/2014 use as directed for 99 days [place] 5-325 mg oral tablet 06/17/2014 06/27/2014 take [...] a day as needed for 30 days forxfgae-fjkidfrqu-WE 3.5-10,000-1 mg/mL-unit/mL-% otic drops,suspension 201401/08/2015 instill 4 [...] Ok for similiar substitution or individual components. adyfiuqh-hfukygvym-SN 3.5-10,000-1 mg/mL-unit/mL-% otic drops,suspension 201607/23/2016 instill 4 [...] Reviewed 04/28/2011 12:00 AM Decadron 1 mg [facility]#[id number] (Jr) Reviewed 04/28/2011 12:00 AM Depo-Medrol 80 mg [facility]#[id number]-Klwewxyf Reviewed 09/02/2015 12:00 AM Toradol 60 Mg NDC#7829-1943-14 Reviewed 09/02/2015 12:00 AM Phenergan, Up to 50 Mg R[facility] Medicaid Reviewed 09/16/2015 12:00 AM Toradol 60 Mg ND#9828-8179-04 Reviewed 09/16/2015 12:00 AM Phenergan Up to 50 mg RHC Medicare Reviewed 05/11/2011 12:00 AM N BLOCK INJ OCCIPITAL Reviewed 05/11/2011 12:00 AM Quentin Ry-[address]-20 ANNA Reviewed 11/13/2015 12:00 AM ASSAY OF [...] INJ SC/IM Reviewed 07/08/2011 12:00 AM Toradol,15mg [facility]#[id number], [place] Reviewed 07/08/2011 12:00 AM Phenergan 50 Mg Im [facility] [place] 6271-8016-42 [place] Reviewed 01/21/2016 12:00 AM ECG MONIT/REPRT UP TO 48 HRS Returned 08/02/2011 12:00 AM THER/PROPH/DIAG INJ SC/IM Reviewed 08/02/2011 12:00 AM Decadron 1 mg [facility]#[id number] (Jr) Reviewed 08/02/2011 12:00 AM Depo-Medrol 80 mg [facility]#[id number]-Xevfzqyc Reviewed 03/05/2016 12:00 AM COMPLETE CBC W/AUTO [...] Reviewed 09/27/2011 12:00 AM Depo-Medrol 80 mg [facility]#[id number]-Bufwwadx Reviewed 07/06/2016 12:00 AM CHEST X-RAY 4/> [...] 09/22/2016 12:00 AM ASSAY OF MAGNESIUM Returned 12/23/2011 12:00 AM THER/PROPH/DIAG INJ SC/IM Reviewed 12/23/2011 12:00 AM Decadron 1 mg [facility]#[id number] (Jr) Reviewed 12/23/2011 12:00 AM Depo-Medrol 80 mg [facility]#[id number]-Xgnqmdwg Reviewed 02/09/2012 12:00 AM THER/PROPH/DIAG INJ SC/IM Reviewed 02/09/2012 12:00 AM Decadron 1 mg [facility]#[id number] (Jr) Reviewed 02/09/2012 12:00 AM Depo-Medrol 80 mg [facility]#[id number]-Bvwbjlbf Reviewed 03/15/2012 12:00 AM N BLOCK INJ OCCIPITAL Reviewed 03/15/2012 12:00 AM Kenalog Cc-[address]-20 ANNA Reviewed 04/11/2012 12:00 AM COMPLETE CBC W/AUTO DIFF WBC Reviewed 04/11/2012 12:00 AM COMPREHEN METABOLIC PANEL Reviewed 04/11/2012 12:00 AM LIPID PANEL Reviewed 04/11/2012 12:00 AM ASSAY THYROID STIM HORMONE Reviewed 06/20/2012 12:00 AM THER/PROPH/DIAG INJ SC/IM Reviewed 06/20/2012 12:00 AM Decadron, Per 1 Mg [facility]# [address]-82 Reviewed 06/20/2012 12:00 AM Depo-Medrol, Per 80 Mg N[facility]#3415-8093-36 Reviewed 09/06/2012 12:00 AM N BLOCK INJ OCCIPITAL Reviewed 09/06/2012 12:00 AM Kenalog Hg-[address]-20 ANNA Reviewed 09/06/2012 12:00 AM X-RAY EXAM RIBS UNI 2 VIEWS Reviewed 09/26/2012 12:00 AM THER/PROPH/DIAG INJ SC/IM Reviewed 09/26/2012 12:00 AM Decadron, Per 1 Mg [facility]# [address]-12 Reviewed 09/26/2012 12:00 AM Depo-Medrol, Per 80 Mg [facility]#8665-5449-72 Reviewed 10/03/2012 12:00 AM URINALYSIS AUTO W/O SCOPE Reviewed 10/03/2012 12:00 AM THER/PROPH/DIAG INJ SC/IM Reviewed 10/03/2012 12:00 AM Toradol 60 Mg ND#4542-7038-80 Reviewed 10/03/2012 12:00 AM Phenergan, 25Mg [facility]#8650-5908-00 Reviewed 10/19/2012 12:00 AM N BLOCK INJ OCCIPITAL Reviewed 10/19/2012 12:00 AM Kenalog, Per 10 Mg [facility]#9055-8348-69 Reviewed 10/19/2012 12:00 AM Toradol 30 Mg ND#4522-4086-80 Reviewed 10/19/2012 12:00 AM THER/PROPH/DIAG INJ SC/IM Reviewed 10/31/2012 12:00 AM COMPLETE CBC W/AUTO DIFF WBC Reviewed 10/31/2012 12:00 AM COMPREHEN METABOLIC PANEL Reviewed 10/31/2012 12:00 AM LIPID PANEL Reviewed 11/03/2012 12:[address] THORAX W/O & W/DYE Reviewed 11/08/2012 12:00 AM N BLOCK INJ OCCIPITAL Reviewed 11/08/2012 12:00 AM Kenalog Bj-[address]-20 ANNA Reviewed 11/27/2012 12:00 AM COMPLETE CBC [...] 01/25/2013 12:00 AM Decadron, Per 1 Mg [facility]# [address]-21 Reviewed 01/25/2013 12:00 AM Depo-Medrol, Per 80 Mg [facility]#0915-4664-32 Reviewed 01/26/2013 12:00 AM IMMUNOTHERAPY INJECTIONS Reviewed [...] 05/16/2013 12:00 AM Decadron, Per 1 Mg [facility]# [address]-05 Reviewed 05/16/2013 12:00 AM Depo-Medrol, Per 80 Mg [facility]#6931-6112-01 Reviewed 05/31/2013 12:00 AM IMMUNOTHERAPY INJECTIONS Reviewed 06/08/2013 12:00 AM IMMUNOTHERAPY INJECTIONS Reviewed 06/14/2013 12:00 AM IMMUNOTHERAPY INJECTIONS Reviewed 06/28/2013 12:00 AM IMMUNOTHERAPY INJECTIONS Reviewed 07/12/2013 12:00 AM X-RAY EXAM RIBS UNI 2 VIEWS Reviewed 07/18/2013 12:00 AM Toradol 60 Mg [facility]#7297-1872-42 Reviewed 07/18/2013 12:00 AM THER/PROPH/DIAG INJ SC/IM Reviewed 08/23/2013 12:00 AM COMPLETE CBC W/AUTO DIFF WBC Reviewed 08/23/2013 12:00 AM COMPREHEN METABOLIC PANEL Reviewed 08/23/2013 12:00 AM LIPID PANEL Reviewed 08/31/2013 12:00 AM X-RAY EXAM OF LOWER LEG Reviewed 09/04/2013 12:00 AM IMMUNOTHERAPY INJECTIONS Reviewed 09/14/2013 12:00 AM THER/PROPH/DIAG INJ SC/IM Reviewed 09/14/2013 12:00 AM Decadron, Per 1 Mg [facility]# [address]-36 Reviewed 09/14/2013 12:00 AM Depo-Medrol, Per 80 Mg [facility]#2928-2895-31 Reviewed 09/20/2013 12:00 AM IMMUNOTHERAPY INJECTIONS Reviewed [...] INJ OCCIPITAL Reviewed 12/10/2009 12:00 AM Quentin Dh-[address]-20 ANNA Reviewed 12/16/2009 12:00 AM HIV-1ANTIBODY Reviewed 12/16/2009 12:00 AM COMPLETE CBC W/AUTO DIFF WBC Reviewed 12/16/2009 12:00 AM METABOLIC PANEL TOTAL CA Reviewed 12/16/2009 12:00 AM Type and screen Reviewed 12/16/2009 12:00 AM PROTHROMBIN TIME Reviewed 12/16/2009 12:00 AM THROMBOPLASTIN TIME PARTIAL Reviewed 03/18/2010 12:00 AM DRAIN/INJ JOINT/BURSA W/O US Reviewed 03/18/2010 12:00 AM Quentin Oe-[address]-20 ANNA Reviewed 11/21/2013 12:00 AM RADEX HAND MINIMUM 3 VIEWS Reviewed 06/03/2010 12:00 AM INJ TRIGGER POINT 1/2 MUSCL Reviewed 06/03/2010 12:00 AM Kenalog per 10Mg Im-[facility] [place]#[address]-33(Niall) Reviewed 12/05/2013 12:00 AM COMPLETE CBC W/AUTO [...] Reviewed 07/23/2010 12:00 AM Kenalog per 10Mg Im-Nd#[address]-90(Niall) Reviewed 2014 12:00 AM COMPLETE CBC W/AUTO [...] INJ OCCIPITAL Reviewed 10/01/2010 12:00 AM Kenalog Kp-[address]-20 ANNA Reviewed 07/25/2014 12:00 AM THER/PROPH/DIAG INJ [...] Quant,IgM <0.80 RMSF , IgG, EIA Negative [facility] Spotted Fever,IgM 0.51 E. chaffeensis [...] %Est Avg Glucose 131.2 mg/dLMAGNESIUM 2.0 mg/dL History Of Immunizations Name Date Admin Mfg Name Mfg Code Trade Name Lot# Route Inj Vis Given Vis Pub CVX Influenza 03/30/2011 Not Entered NE Not Entered Not Entered Not Entered 03/31/2011 05/30/2016 141 Influenza 04/24/2014 sanofi pasteur PMC Fluzone [id number] Intramuscular Left Upper Arm 02/27/2014 01/15/2014 141 Influenza 02/13/2015 sanofi pasteur PMC Fluzone [id number] Intramuscular Left Deltoid 02/13/2015 01/03/2015 140 Tdap 06/06/2015 [employer]oSmith[employer] SKB BOOSTRIX [id number] Intramuscular Left Deltoid 06/06/2015 07/23/2014 115 Influenza 03/18/2016 [facility] Fluzone [id number] Intramuscular Left Deltoid 03/17/2016 01/03/2015 141 History [...] Number Start Date Medicare RHC Medicare RHC [id number] N/A [facility] [id number] N/A Medicare Part A Medicare - Lab/Xray [id number] N/A Medicare Part B Medicare Of [place] [id number] Monday, February 28, 2000 [place] [facility] [place] [facility] [place] [id number] Tuesday, November 10, 2009 Medicare Part A Medicare Part A [id number] N/A [place] [facility] [id number] May [facility] Comm Plan of [id number] Wednesday, May 30, 2012 History of Encounters Visit Date Visit Type Provider 10/06/2016 Office visit Kaylynn Mendez PIG MACHINE CRANE OPERATOR 09/22/2016 Office visit Heena Dumont MD 09/09/2016 Office visit Kaylynn Mendez PIG MACHINE CRANE OPERATOR 08/27/2016 Office visit Riccardo Cardoza MD 08/26/2016 Office visit Heena Dumont MD 07/09/2016 Office visit Riccardo Cardoza MD 07/06/2016 Office visit Heena Dumont MD 06/18/2016 Office visit Kaylynn Mendez PIG MACHINE CRANE OPERATOR 06/07/2016 Office visit Sundeep Russell PIG MACHINE CRANE OPERATOR 06/04/2016 Office visit Heena Dumont MD 05/13/2016 Office visit Heena Dumont MD 05/03/2016 Office visit Heena Dumont MD 04/26/2016 Office visit Kaylynn Mendez PIG MACHINE CRANE OPERATOR 04/14/2016 Office visit Heena Dumont MD 04/13/2016 Office visit Kaylynn Mendez PIG MACHINE CRANE OPERATOR 04/02/2016 Office visit Lena El PIG MACHINE CRANE OPERATOR 04/02/2016 Office visit Heena Dumont MD 03/26/2016 Office visit Yesica Falcon PIG MACHINE CRANE OPERATOR 03/17/2016 Office visit Heena Dumont MD 03/05/2016 Office visit Kaylynn Mendez PIG MACHINE CRANE OPERATOR 02/16/2016 Office visit Heena Dumont MD 02/14/2016 Office visit Na Jones PIG MACHINE CRANE OPERATOR 01/16/2016 Office visit Heena Dumont MD 12/16/2015 Office visit Heena Dumont MD 11/24/2015 Office visit Kaylynn Mendez PIG MACHINE CRANE OPERATOR 11/18/2015 Office visit Heena Dumont MD 11/03/2015 Office visit Sundeep Russell PIG MACHINE CRANE OPERATOR 10/20/2015 Office visit Kaylynn Mendez PIG MACHINE CRANE OPERATOR 09/23/2015 Office visit Kaylynn Mendez PIG MACHINE CRANE OPERATOR 09/16/[address] Pepe Figueroa MD 09/02/2015 Office visit Kaylynn Mendez PIG MACHINE CRANE OPERATOR 09/01/2015 Office visit Kaylynn Mendez PIG MACHINE CRANE OPERATOR 07/30/2015 Office visit Heena Dumont MD 07/15/2015 Office visit Kaylynn Mendez PIG MACHINE CRANE OPERATOR 07/04/2015 Office visit Heena Dumont MD 06/06/2015 Office visit Heena Dumont MD 06/06/2015 Office visit Kaylynn Mendez PIG MACHINE CRANE OPERATOR 06/02/2015 Office visit Kaylynn Mendez PIG MACHINE CRANE OPERATOR 05/26/2015 Office visit Kaylynn Mendez PIG MACHINE CRANE OPERATOR 05/20/2015 Office visit Kaylynn Mendez PIG MACHINE CRANE OPERATOR 05/08/2015 Office visit Heena Dumont MD 05/06/2015 Office visit Kaylynn Mendez PIG MACHINE CRANE OPERATOR 04/29/2015 Office visit Kaylynn Mendez PIG MACHINE CRANE OPERATOR 03/27/2015 Voided Brittni Yanez PIG MACHINE CRANE OPERATOR 03/21/2015 Office visit Heena Dumont MD 03/12/2015 Office visit Kaylynn Mendez PIG MACHINE CRANE OPERATOR 02/26/2015 Office visit Brittni Yanez PIG MACHINE CRANE OPERATOR 02/13/2015 Office visit Heena Dumont MD 01/15/2015 Office visit Brittni Yanez PIG MACHINE CRANE OPERATOR 01/13/2015 Office visit Heena Dumont MD 01/08/[address] Carol Fowler MD 01/01/2015 Office visit Brittni Yanez PIG MACHINE CRANE OPERATOR 12/13/2014 Office visit Heena Dumont MD 11/27/2014 Office visit Kaylynn Mendez PIG MACHINE CRANE OPERATOR 11/14/2014 Office visit Heena Dumont MD 10/18/2014 Office visit Heena Dumont MD 10/17/2014 [facility] John Hoskins MD 10/09/2014 Office visit Heena Dumont MD 09/25/2014 Office visit Heena Dumont MD 09/17/2014 Office visit Kaylynn Mendez PIG MACHINE CRANE OPERATOR 09/04/2014 Office visit Heena Dumont MD 08/28/2014 Office visit Kaylynn Mendez PIG MACHINE CRANE OPERATOR 08/23/2014 [facility] John Hoskins MD 08/01/2014 Office visit Kaylynn Mendez PIG MACHINE CRANE OPERATOR 07/29/2014 Office visit Heena Dumont MD 07/25/2014 Nurse visit Heena Dumont MD 07/17/2014 Office visit Kaylynn Mendez PIG MACHINE CRANE OPERATOR 07/11/2014 Office visit Heena Dumont MD 07/01/2014 Office visit Heena Dumont MD 06/25/2014 Office visit Kaylynn Mendez PIG MACHINE CRANE OPERATOR 06/12/2014 Office visit Kaylynn Mendez PIG MACHINE CRANE OPERATOR 06/06/2014 Office visit Kaylynn Mendez PIG MACHINE CRANE OPERATOR 05/27/2014 Office visit Heena Dumont MD 04/20/2014 Office visit Yesica Falcon PIG MACHINE CRANE OPERATOR 03/29/2014 Office visit Na Jones PIG MACHINE CRANE OPERATOR 03/15/2014 Office visit Heena Dumont MD 2014 Office visit Heena Dumont MD 2014 [facility] John Hoskins MD 02/27/2014 Nurse visit Heena Dumont MD 02/13/2014 Office visit Lena El PIG MACHINE CRANE OPERATOR 02/07/2014 Office visit Heena Dumont MD 02/03/2014 Office visit Na Jones PIG MACHINE CRANE OPERATOR 01/30/2014 Office visit Kaylynn Mendez PIG MACHINE CRANE OPERATOR 01/24/2014 Office visit Sundeep Russell PIG MACHINE CRANE OPERATOR 01/16/2014 Office visit Kaylynn Walker PIG MACHINE CRANE OPERATOR 01/10/2014 Nurse visit Kaylynn Walker PIG MACHINE CRANE OPERATOR 01/08/2014 Office visit Kaylynn Walker PIG MACHINE CRANE OPERATOR 12/05/2013 Office visit Kaylynn Walker PIG MACHINE CRANE OPERATOR 11/21/2013 Office visit Kaylynn Walker PIG MACHINE CRANE OPERATOR 10/23/2013 Office visit Brittni Yanez PIG MACHINE CRANE OPERATOR 10/17/2013 Nurse visit Heena Dumont MD 10/12/2013 Office visit Kaylynn Walker PIG MACHINE CRANE OPERATOR 10/02/2013 Office visit Heena Dumont MD 09/20/2013 Nurse visit Kaylynn Walker PIG MACHINE CRANE OPERATOR 09/20/2013 Voided Heena Dumont MD 09/14/2013 Office visit Kaylynn Walker PIG MACHINE CRANE OPERATOR 09/05/2013 Office visit Sundeep Russell PIG MACHINE CRANE OPERATOR 09/04/2013 Nurse visit Kaylynn Walker PIG MACHINE CRANE OPERATOR 08/31/2013 Office visit Kaylynn Walker PIG MACHINE CRANE OPERATOR 08/23/2013 Office visit Heena Dumont MD 08/10/2013 Office visit Kaylynn Walker PIG MACHINE CRANE OPERATOR 07/25/2013 Office visit Kaylynn Walker PIG MACHINE CRANE OPERATOR 07/18/2013 Office visit Kaylynn Walker PIG MACHINE CRANE OPERATOR 07/12/2013 Office visit Kaylynn Walker PIG MACHINE CRANE OPERATOR 06/28/2013 Nurse visit Kaylynn Walker PIG MACHINE CRANE OPERATOR 06/14/2013 Nurse visit Kaylynn Walker PIG MACHINE CRANE OPERATOR 06/08/2013 Nurse visit Kaylynn Walker PIG MACHINE CRANE OPERATOR 05/31/2013 Nurse visit Chadd Norris DO 05/18/2013 Office visit Terese Davidson MD 05/16/2013 Office visit Kaylynn Mendez PIG MACHINE CRANE OPERATOR 05/09/2013 Office visit Kaylynn Mendez PIG MACHINE CRANE OPERATOR 04/29/2013 [facility] John Hoskins MD 04/25/2013 Nurse visit Kaylynn Walker PIG MACHINE CRANE OPERATOR 04/17/2013 Office visit Kaylynn Walker PIG MACHINE CRANE OPERATOR 04/03/2013 Nurse visit Kaylynn Mendez PIG MACHINE CRANE OPERATOR 04/03/2013 Office visit Terese Davidson MD 03/28/2013 Office visit Sundeep Russell PIG MACHINE CRANE OPERATOR 03/21/2013 Office visit Kaylynn Mendez PIG MACHINE CRANE OPERATOR 03/20/2013 Office visit Terese Davidson MD 03/14/2013 Nurse visit Kaylynn Mendez PIG MACHINE CRANE OPERATOR 03/05/2013 Nurse visit Kaylynn Mendez PIG MACHINE CRANE OPERATOR 02/19/2013 Office visit Terese Davidson MD 02/16/2013 Nurse visit Kaylynn Mendez PIG MACHINE CRANE OPERATOR 02/09/2013 Office visit Sundeep Russell PIG MACHINE CRANE OPERATOR 02/08/2013 Nurse visit Kaylynn Mendez PIG MACHINE CRANE OPERATOR 02/01/2013 Nurse visit Kaylynn Walker PIG MACHINE CRANE OPERATOR 01/26/2013 Nurse visit Sabrina Mendez FACING GRINDER 01/25/2013 Office visit Kaylynn Walker PIG MACHINE CRANE OPERATOR 01/22/2013 Office visit Yoan Castaneda MD 01/18/2013 Nurse visit Kaylynn Walker PIG MACHINE CRANE OPERATOR 01/11/2013 Nurse visit Kaylynn Walker PIG MACHINE CRANE OPERATOR 01/05/2013 Nurse visit Kaylynn Walker PIG MACHINE CRANE OPERATOR 12/29/2012 Office visit Kaylynn Walker PIG MACHINE CRANE OPERATOR 11/27/2012 Office visit Kaylynn Walker PIG MACHINE CRANE OPERATOR 11/08/2012 Office visit Odell Tierney MD 11/08/2012 Voided Odell Tierney MD 11/07/2012 Office visit Kaylynn Walker PIG MACHINE CRANE OPERATOR 10/31/2012 [facility] John Hoskins MD 10/31/2012 Office visit Kaylynn Walker PIG MACHINE CRANE OPERATOR 10/19/2012 Office visit Genoveva Ayala PIG MACHINE CRANE OPERATOR 10/10/2012 Office visit Kaylynn Walker PIG MACHINE CRANE OPERATOR 10/03/2012 Office visit Kaylynn Walker PIG MACHINE CRANE OPERATOR 09/26/2012 Office visit Kaylynn Walker PIG MACHINE CRANE OPERATOR 09/06/2012 Office visit Kaylynn Walker PIG MACHINE CRANE OPERATOR 09/06/2012 Office visit Odell Tierney MD 08/31/2012 Voided Kaylynn Mendez PIG MACHINE CRANE OPERATOR 07/28/2012 Office visit Kaylynn Walker PIG MACHINE CRANE OPERATOR 07/27/2012 Office visit David Joyner DO 07/20/2012 [facility] David Joyner DO 07/13/2012 [facility] DO 07/11/2012 Office visit Kaylynn Mendez PIG MACHINE CRANE OPERATOR 06/27/2012 [facility] Odell Tierney MD 06/21/2012 Office visit David Joyner DO 06/21/2012 Office visit Odell Tierney MD 06/20/2012 Office visit Brittni Yanez PIG MACHINE CRANE OPERATOR 06/06/2012 Office visit Odell Tierney MD 05/03/2012 Office visit Kaylynn Mendez PIG MACHINE CRANE OPERATOR 04/28/2012 Office visit Brittni Yanez PIG MACHINE CRANE OPERATOR 04/11/2012 Office visit Kaylynn Mendez PIG MACHINE CRANE OPERATOR 04/06/2012 [facility] John Hoskins MD 03/30/2012 Office visit Kaylynn Mendez PIG MACHINE CRANE OPERATOR 03/15/2012 Office visit Kaylynn Mendez PIG MACHINE CRANE OPERATOR 03/15/2012 Office visit Odell Tierney MD 02/09/2012 Office visit Kaylynn Walker PIG MACHINE CRANE OPERATOR 12/23/2011 Office visit Kaylynn Walker PIG MACHINE CRANE OPERATOR 11/02/2011 Office visit Kaylynn Walker PIG MACHINE CRANE OPERATOR 10/14/2011 Office visit Kaylynn Walker PIG MACHINE CRANE OPERATOR 09/27/2011 Office visit Kaylynn Mendez PIG MACHINE CRANE OPERATOR 08/19/2011 [facility] John Hoskins MD 08/18/2011 [facility] John Hoskins MD 08/18/2011 Office visit Kaylynn Mendez PIG MACHINE CRANE OPERATOR 08/02/2011 Office visit Kaylynn Mendez PIG MACHINE CRANE OPERATOR 07/08/2011 Office visit Kaylynn Andrea PIG MACHINE CRANE OPERATOR 07/05/2011 Office visit Odell Tierney MD 06/15/2011 Office visit Kaylynn Mendez PIG MACHINE CRANE OPERATOR 05/14/2011 Office visit Kaylynn Mendez PIG MACHINE CRANE OPERATOR 05/11/2011 Office visit Odell Tierney MD 04/28/2011 Office visit Kaylynn Anrdea PIG MACHINE CRANE OPERATOR 03/02/2011 Office visit Chadd Norris DO [...]
--- OUTSIDE RECORDS SUMMARY | 2018-05-09 19:53 | XMS REPORT ---
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 piabzxir-ojacvyilw-ZB 3.5-10,000-1 mg/mL-unit/mL-% otic drops,suspension 201607/23/2016 instill 4 [...] Reviewed 04/28/2011 12:00 AM Decadron 1 mg [facility]#[id number] (Jr) Reviewed 04/28/2011 12:00 AM Depo-Medrol 80 mg ND#[id number]-Nscpvefw Reviewed 09/02/2015 12:00 AM Toradol 60 Mg [facility]#3637-8159-68 Reviewed 09/02/2015 12:00 AM Phenergan, Up to 50 Mg [facility] Medicaid Reviewed 09/16/2015 12:00 AM Toradol 60 Mg [facility]#3861-4046-29 Reviewed 09/16/2015 12:00 AM Phenergan Up to 50 mg [facility] Medicare Reviewed 05/11/2011 12:00 AM N BLOCK INJ OCCIPITAL Reviewed 05/11/2011 12:00 AM Kenalog Qr-[address]-20 ANNA Reviewed 11/13/2015 12:00 AM ASSAY OF [...] INJ SC/IM Reviewed 07/08/2011 12:00 AM Toradol,15mg [facility]#[id number], Brunildaer Reviewed 07/08/2011 12:00 AM Phenergan 50 Mg Im [facility] [id number] [facility] Reviewed 01/21/2016 12:00 AM ECG MONIT/REPRT UP TO 48 HRS Returned 08/02/2011 12:00 AM THER/PROPH/DIAG INJ SC/IM Reviewed 08/02/2011 12:00 AM Decadron 1 mg [facility]#[id number] (Jr) Reviewed 08/02/2011 12:00 AM Depo-Medrol 80 mg [facility]#[id number]-Moczhnjo Reviewed 03/05/2016 12:00 AM COMPLETE CBC W/AUTO DIFF WBC Returned 03/05/2016 12:00 AM STREP A ASSAY W/OPTIC Returned 03/05/2016 12:00 AM C-REACTIVE PROTEIN Returned 03/18/2016 12:00 AM [facility] MEDICARE - flu vaccine administration Reviewed [...] Reviewed 09/27/2011 12:00 AM Depo-Medrol 80 mg NDC#[id number]-Qlpgyshr Reviewed 07/06/2016 12:00 AM CHEST X-RAY 4/> VIEWS Returned 10/14/2011 12:00 AM X-RAY EXAM OF ABDOMEN Reviewed 10/14/2011 12:00 AM URINALYSIS AUTO W/O SCOPE Reviewed 08/09/2016 12:00 AM INJ FORAMEN EPIDURAL L/S Reviewed 08/09/2016 12:00 AM INJECT SPINE LUMBAR/SACRAL Reviewed 08/09/2016 12:00 AM INJECT SPINE CERV/THORACIC Reviewed 09/09/2016 12:[address] HEAD/BRAIN W/O DYE Returned 12/23/2011 12:00 AM THER/PROPH/DIAG INJ SC/IM Reviewed 12/23/2011 12:00 AM Decadron 1 mg [facility]#[id number] (Jr) Reviewed 12/23/2011 12:00 AM Depo-Medrol 80 mg N[facility]#[id number]-Nspheero Reviewed 02/09/2012 12:00 AM THER/PROPH/DIAG INJ SC/IM Reviewed 02/09/2012 12:00 AM Decadron 1 mg [facility]#[id number] (Jr) Reviewed 02/09/2012 12:00 AM Depo-Medrol 80 mg N[facility]#[id number]-Khqsruje Reviewed 03/15/2012 12:00 AM N BLOCK INJ OCCIPITAL Reviewed 03/15/2012 12:00 AM Kenalog Nd-[address]-20 ANNA Reviewed 04/11/2012 12:00 AM COMPLETE CBC W/AUTO DIFF WBC Reviewed 04/11/2012 12:00 AM COMPREHEN METABOLIC PANEL Reviewed 04/11/2012 12:00 AM LIPID PANEL Reviewed 04/11/2012 12:00 AM ASSAY THYROID STIM HORMONE Reviewed 06/20/2012 12:00 AM THER/PROPH/DIAG INJ SC/IM Reviewed 06/20/2012 12:00 AM Decadron, Per 1 Mg ND# [address]-78 Reviewed 06/20/2012 12:00 AM Depo-Medrol, Per 80 Mg ND#7825-2262-22 Reviewed 09/06/2012 12:00 AM N BLOCK INJ OCCIPITAL Reviewed 09/06/2012 12:00 AM Kenalog Fh-[address]-20 ANNA Reviewed 09/06/2012 12:00 AM X-RAY EXAM RIBS UNI 2 VIEWS Reviewed 09/26/2012 12:00 AM THER/PROPH/DIAG INJ SC/IM Reviewed 09/26/2012 12:00 AM Decadron, Per 1 Mg [facility]# [address]-70 Reviewed 09/26/2012 12:00 AM Depo-Medrol, Per 80 Mg [facility]#1493-0591-10 Reviewed 10/03/2012 12:00 AM URINALYSIS AUTO W/O SCOPE Reviewed 10/03/2012 12:00 AM THER/PROPH/DIAG INJ SC/IM Reviewed 10/03/2012 12:00 AM Toradol 60 Mg [facility]#6932-7713-26 Reviewed 10/03/2012 12:00 AM Phenergan, 25Mg [facility]#9812-0215-79 Reviewed 10/19/2012 12:00 AM N BLOCK INJ OCCIPITAL Reviewed 10/19/2012 12:00 AM Kenalog, Per 10 Mg ND#0364-2893-82 Reviewed 10/19/2012 12:00 AM Toradol 30 Mg [facility]#6928-7283-15 Reviewed 10/19/2012 12:00 AM THER/PROPH/DIAG INJ SC/IM Reviewed 10/31/2012 12:00 AM COMPLETE CBC W/AUTO DIFF WBC Reviewed 10/31/2012 12:00 AM COMPREHEN METABOLIC PANEL Reviewed 10/31/2012 12:00 AM LIPID PANEL Reviewed 11/03/2012 12:[address] THORAX W/O & W/DYE Reviewed 11/08/2012 12:00 AM N BLOCK INJ OCCIPITAL Reviewed 11/08/2012 12:00 AM Kenalog Yl-[address]-20 ANNA Reviewed 11/27/2012 12:00 AM COMPLETE CBC [...] 12:00 AM Decadron, Per 1 Mg ND# [address]-72 Reviewed 01/25/2013 12:00 AM Depo-Medrol, Per 80 Mg NDC#3087-0948-86 Reviewed 01/26/2013 12:00 AM IMMUNOTHERAPY INJECTIONS Reviewed [...] 12:00 AM Decadron, Per 1 Mg N[facility]# [address]-42 Reviewed 05/16/2013 12:00 AM Depo-Medrol, Per 80 Mg NDC#4357-8560-39 Reviewed 05/31/2013 12:00 AM IMMUNOTHERAPY INJECTIONS Reviewed 06/08/2013 12:00 AM IMMUNOTHERAPY INJECTIONS Reviewed 06/14/2013 12:00 AM IMMUNOTHERAPY INJECTIONS Reviewed 06/28/2013 12:00 AM IMMUNOTHERAPY INJECTIONS Reviewed 07/12/2013 12:00 AM X-RAY EXAM RIBS UNI 2 VIEWS Reviewed 07/18/2013 12:00 AM Toradol 60 Mg [facility]#4042-5636-41 Reviewed 07/18/2013 12:00 AM THER/PROPH/DIAG INJ SC/IM Reviewed 08/23/2013 12:00 AM COMPLETE CBC W/AUTO DIFF WBC Reviewed 08/23/2013 12:00 AM COMPREHEN METABOLIC PANEL Reviewed 08/23/2013 12:00 AM LIPID PANEL Reviewed 08/31/2013 12:00 AM X-RAY EXAM OF LOWER LEG Reviewed 09/04/2013 12:00 AM IMMUNOTHERAPY INJECTIONS Reviewed 09/14/2013 12:00 AM THER/PROPH/DIAG INJ SC/IM Reviewed 09/14/2013 12:00 AM Decadron, Per 1 Mg [facility]# [address]-30 Reviewed 09/14/2013 12:00 AM Depo-Medrol, Per 80 Mg [facility]#5552-2653-58 Reviewed 09/20/2013 12:00 AM IMMUNOTHERAPY INJECTIONS Reviewed [...] INJ OCCIPITAL Reviewed 12/10/2009 12:00 AM Kenalog Fy-[address]-20 ANNA Reviewed 12/16/2009 12:00 AM HIV-1ANTIBODY Reviewed 12/16/2009 12:00 AM COMPLETE CBC W/AUTO DIFF WBC Reviewed 12/16/2009 12:00 AM METABOLIC PANEL TOTAL CA Reviewed 12/16/2009 12:00 AM Type and screen Reviewed 12/16/2009 12:00 AM PROTHROMBIN TIME Reviewed 12/16/2009 12:00 AM THROMBOPLASTIN TIME PARTIAL Reviewed 03/18/2010 12:00 AM DRAIN/INJ JOINT/BURSA W/O US Reviewed 03/18/2010 12:00 AM Kenalog Jt-[address]-20 ANNA Reviewed 11/21/2013 12:00 AM RADEX HAND MINIMUM 3 VIEWS Reviewed 06/03/2010 12:00 AM INJ TRIGGER POINT 1/2 MUSCL Reviewed 06/03/2010 12:00 AM Kenalog per 10Mg Im-Ndc#[address]-53(Niall) Reviewed 12/05/2013 12:00 AM COMPLETE CBC W/AUTO [...] Reviewed 07/23/2010 12:00 AM Kenalog per 10Mg Im-Ndc#[address]-23(Niall) Reviewed 2014 12:00 AM COMPLETE CBC W/AUTO [...] INJ OCCIPITAL Reviewed 10/01/2010 12:00 AM Kengretta Ti-[address]-20 NANA Reviewed 07/25/2014 12:00 AM THER/PROPH/DIAG INJ SC/IM [...] Quant,IgM <0.80 RMSF , IgG, EIA Negative [facility] Spotted Fever,IgM 0.51 E. chaffeensis (HME) [...] 141 Influenza 04/24/2014 sanofi pasteur PMC Fluzone [id number] Intramuscular Left Upper Arm 02/27/2014 01/15/2014 141 Influenza 02/13/2015 sanofi pasteur PMC Fluzone [id number] Intramuscular Left Deltoid 02/13/2015 01/03/2015 140 Tdap 06/06/2015 [employer] SKB BOOSTRIX [id number] Intramuscular Left Deltoid 06/06/2015 07/23/2014 115 Influenza 03/18/2016 sanofi pasteur PMC Fluzone [id number] Intramuscular Left Deltoid 03/17/2016 01/03/2015 141 History [...] Oct 31 2012 1:42PM Tachycardia Oct 31 2013 1:42PM Cough Nov 03 2012 12:22PM Elevated [...] stenosis Jul 09 2016 3:50PM Lumbago b 10 2016 3:25PM Stenosis, cervical spine b [...] 2016 11:29AM Dizziness Sep 09 2016 11:29AM Payers Insurance Name Company Name Plan Name Plan Number Policy Number Policy Group Number Start Date Medicare [facility] Medicare [facility] [id number] N/A [facility] Comm [id number] N/A Medicare Part A Medicare - Lab/Xray [id number] N/A Medicare Part B Medicare Of [place] [id number] Monday, February 28, 2000 [place] [employer] [place] [id number] Tuesday, November 10, 2009 Medicare Part A Medicare Part A [id number] N/A [place] [employer] [place] [employer] [place] [employer] [place] [employer] [id number] [facility] Plan of [id number] Wednesday, May 30, 2012 History of Encounters Visit Date Visit Type Provider 09/09/2016 Office visit Kaylynn Mendez CONSERVATION OFFICER 08/27/2016 Office visit Riccardo Cardoza MD 08/26/2016 Office visit Heena Dumont MD 07/09/2016 Office visit Riccardo Cardoza MD 07/06/2016 Office visit Heena Dumont MD 06/18/2016 Office visit Kaylynn Mendez CONSERVATION OFFICER 06/07/2016 Office visit Sundeep Russell CONSERVATION OFFICER 06/04/2016 Office visit Heena Dumont MD 05/13/2016 Office visit Heena Dumont MD 05/03/2016 Office visit Heena Dumont MD 04/26/2016 Office visit Kaylynn Mendez CONSERVATION OFFICER 04/14/2016 Office visit Heena Dumont MD 04/13/2016 Office visit Kaylynn Mendez CONSERVATION OFFICER 04/02/2016 Office visit Lena El CONSERVATION OFFICER 04/02/2016 Office visit Heena Dumont MD 03/26/2016 Office visit Yesica Falcon CONSERVATION OFFICER 03/17/2016 Office visit Heena Dumont MD 03/05/2016 Office visit Kaylynn Mendez CONSERVATION OFFICER 02/16/2016 Office visit Heena Dumont MD 02/14/2016 Office visit Na Jones CONSERVATION OFFICER 01/16/2016 Office visit Heena Dumont MD 12/16/2015 Office visit Heena Dumont MD 11/24/2015 Office visit Kaylynn Mendez CONSERVATION OFFICER 11/18/2015 Office visit Heena Dumont MD 11/03/2015 Office visit Sundeep Russell CONSERVATION OFFICER 10/20/2015 Office visit Kaylynn Mendez CONSERVATION OFFICER 09/23/2015 Office visit Kaylynn Mendez CONSERVATION OFFICER 09/16/[address] Pepe Figueroa MD 09/02/2015 Office visit Kaylynn Mendez CONSERVATION OFFICER 09/01/2015 Office visit Kaylynn Mendez CONSERVATION OFFICER 07/30/2015 Office visit Heena Dumont MD 07/15/2015 Office visit Kaylynn Mendez CONSERVATION OFFICER 07/04/2015 Office visit Heena Dumont MD 06/06/2015 Office visit Heena Dumont MD 06/06/2015 Office visit Kaylynn Mendez CONSERVATION OFFICER 06/02/2015 Office visit Kaylynn Andrea CONSERVATION OFFICER 05/26/2015 Office visit Kaylynn Mendez CONSERVATION OFFICER 05/20/2015 Office visit Kaylynn Mendez CONSERVATION OFFICER 05/08/2015 Office visit Heena Dumont MD 05/06/2015 Office visit Kaylynn Mendez CONSERVATION OFFICER 04/29/2015 Office visit Kaylynn Mendez CONSERVATION OFFICER 03/27/2015 Voided Brittni Yanez CONSERVATION OFFICER 03/21/2015 Office visit Heena Dumont MD 03/12/2015 Office visit Kaylynn Mendez CONSERVATION OFFICER 02/26/2015 Office visit Brittni Yanez CONSERVATION OFFICER 02/13/2015 Office visit Heena Dumont MD 01/15/2015 Office visit Brittni Yanez CONSERVATION OFFICER 01/13/2015 Office visit Heena Dumont MD 01/08/[address] Carol Fowler MD 01/01/2015 Office visit Brittni Yanez CONSERVATION OFFICER 12/13/2014 Office visit Heena Dumont MD 11/27/2014 Office visit Kaylynn Mendez CONSERVATION OFFICER 11/14/2014 Office visit Heena Dumont MD 10/18/2014 Office visit Heena Dumont MD 10/17/2014 Hospital Eliseo Hoskins MD 10/09/2014 Office visit Heena Dumont MD 09/25/2014 Office visit Heena Dumont MD 09/17/2014 Office visit Kaylynn Mendez CONSERVATION OFFICER 09/04/2014 Office visit Heena Dumont MD 08/28/2014 Office visit Kaylynn Mendez CONSERVATION OFFICER 08/23/2014 [facility] John Hoskins MD 08/01/2014 Office visit Kaylynn Mendez CONSERVATION OFFICER 07/29/2014 Office visit Heena Dumont MD 07/25/2014 Nurse visit Heena Dumont MD 07/17/2014 Office visit Kaylynn Mendez CONSERVATION OFFICER 07/11/2014 Office visit Heena Dumont MD 07/01/2014 Office visit Heena Dumont MD 06/25/2014 Office visit Kaylynn Mendez CONSERVATION OFFICER 06/12/2014 Office visit Kaylynn Mendez CONSERVATION OFFICER 06/06/2014 Office visit Kaylynn Mendez CONSERVATION OFFICER 05/27/2014 Office visit Heena Dumont MD 04/20/2014 Office visit Yesica Falcon CONSERVATION OFFICER 03/29/2014 Office visit Na Jones CONSERVATION OFFICER 03/15/2014 Office visit Heena Dumont MD 2014 Office visit Heena Dumont MD 2014 [facility] John Hoskins MD 02/27/2014 Nurse visit Heena Dumont MD 02/13/2014 Office visit Lena El CONSERVATION OFFICER 02/07/2014 Office visit Heena Dumont MD 02/03/2014 Office visit Na Jones CONSERVATION OFFICER 01/30/2014 Office visit Kaylynn Mendez CONSERVATION OFFICER 01/24/2014 Office visit Sundeep Russell CONSERVATION OFFICER 01/16/2014 Office visit Kaylynn Walker CONSERVATION OFFICER 01/10/2014 Nurse visit Kaylynn Walker CONSERVATION OFFICER 01/08/2014 Office visit Kaylynn Walker CONSERVATION OFFICER 12/05/2013 Office visit Kaylynn Walker CONSERVATION OFFICER 11/21/2013 Office visit Kaylynn Walker CONSERVATION OFFICER 10/23/2013 Office visit Brittni Yanez CONSERVATION OFFICER 10/17/2013 Nurse visit Heena Dumont MD 10/12/2013 Office visit Kaylynn Walker CONSERVATION OFFICER 10/02/2013 Office visit Heena Dumont MD 09/20/2013 Nurse visit Kaylynn Mendez CONSERVATION OFFICER 09/20/2013 Voided Heena Dumont MD 09/14/2013 Office visit Kaylynn Walker CONSERVATION OFFICER 09/05/2013 Office visit Sundeep Russell CONSERVATION OFFICER 09/04/2013 Nurse visit Kaylynn Walker CONSERVATION OFFICER 08/31/2013 Office visit Kaylynn Walker CONSERVATION OFFICER 08/23/2013 Office visit Heena Dumont MD 08/10/2013 Office visit Kaylynn Walker CONSERVATION OFFICER 07/25/2013 Office visit Kaylynn Walker CONSERVATION OFFICER 07/18/2013 Office visit Kaylynn Walker CONSERVATION OFFICER 07/12/2013 Office visit Kaylynn Walker CONSERVATION OFFICER 06/28/2013 Nurse visit Kaylynn Walker CONSERVATION OFFICER 06/14/2013 Nurse visit Kaylynn Walker CONSERVATION OFFICER 06/08/2013 Nurse visit Kaylynn Walker CONSERVATION OFFICER 05/31/2013 Nurse visit Chadd Norris DO 05/18/2013 Office visit Terese Davidson MD 05/16/2013 Office visit Kaylynn Mendez CONSERVATION OFFICER 05/09/2013 Office visit Kaylynn Mendez CONSERVATION OFFICER 04/29/2013 [facility] John Hoskins MD 04/25/2013 Nurse visit Kaylynn Walker CONSERVATION OFFICER 04/17/2013 Office visit Kaylynn Walker CONSERVATION OFFICER 04/03/2013 Nurse visit Kaylynn Walker CONSERVATION OFFICER 04/03/2013 Office visit Terese Davidson MD 03/28/2013 Office visit Sundeep Russell CONSERVATION OFFICER 03/21/2013 Office visit Kaylynn Mendez CONSERVATION OFFICER 03/20/2013 Office visit Terese Davidson MD 03/14/2013 Nurse visit Kaylynn Mendez CONSERVATION OFFICER 03/05/2013 Nurse visit Kaylynn Walker CONSERVATION OFFICER 02/19/2013 Office visit Terese Davidson MD 02/16/2013 Nurse visit Kaylynn Walker CONSERVATION OFFICER 02/09/2013 Office visit Sundeep Russell CONSERVATION OFFICER 02/08/2013 Nurse visit Kaylynn Walker CONSERVATION OFFICER 02/01/2013 Nurse visit Kaylynn Walker CONSERVATION OFFICER 01/26/2013 Nurse visit Sabrina Andrea BISQUE BRUSHER 01/25/2013 Office visit Kaylynn Andrea CONSERVATION OFFICER 01/22/2013 Office visit Yoan Castaneda MD 01/18/2013 Nurse visit Kaylynn Walker CONSERVATION OFFICER 01/11/2013 Nurse visit Kaylynn Walker CONSERVATION OFFICER 01/05/2013 Nurse visit Kaylynn Walker CONSERVATION OFFICER 12/29/2012 Office visit Kaylynn Walker CONSERVATION OFFICER 11/27/2012 Office visit Kaylynn Mendez CONSERVATION OFFICER 11/08/2012 Office visit Odell Tierney MD 11/08/2012 Voided Odell Tierney MD 11/07/2012 Office visit Kaylynn Mendez CONSERVATION OFFICER 10/31/2012 [facility] John Hoskins MD 10/31/2012 Office visit Kaylynn Mendez CONSERVATION OFFICER 10/19/2012 Office visit Genoveva Ayala CONSERVATION OFFICER 10/10/2012 Office visit Kaylynn Mendez CONSERVATION OFFICER 10/03/2012 Office visit Kaylynn Walker CONSERVATION OFFICER 09/26/2012 Office visit Kaylynn Mendez CONSERVATION OFFICER 09/06/2012 Office visit Kaylynn Mendez CONSERVATION OFFICER 09/06/2012 Office visit Odell Tierney MD 08/31/2012 Voided Kaylynn Mendez CONSERVATION OFFICER 07/28/2012 Office visit Kaylynn Mendez CONSERVATION OFFICER 07/27/2012 Office visit David Joyner DO 07/20/2012 [facility] David Joyner DO 07/13/2012 [facility] David Joyner DO 07/11/2012 Office visit Kaylynn Mendez CONSERVATION OFFICER 06/27/2012 [facility] Odell Tierney MD 06/21/2012 Office visit David Joyner DO 06/21/2012 Office visit Odell Tierney MD 06/20/2012 Office visit Brittni Yanez CONSERVATION OFFICER 06/06/2012 Office visit Odell Tierney MD 05/03/2012 Office visit Kaylynn Mendez CONSERVATION OFFICER 04/28/2012 Office visit Brittni Yanez CONSERVATION OFFICER 04/11/2012 Office visit Kaylynn Mendez CONSERVATION OFFICER 04/06/2012 [facility] John Hoskins MD 03/30/2012 Office visit Kaylynn Mendez CONSERVATION OFFICER 03/15/2012 Office visit Kaylynn Mendez CONSERVATION OFFICER 03/15/2012 Office visit Odell Tierney MD 02/09/2012 Office visit Kaylynn Mendez CONSERVATION OFFICER 12/23/2011 Office visit Kaylynn Mendez CONSERVATION OFFICER 11/02/2011 Office visit Kaylynn Mendez CONSERVATION OFFICER 10/14/2011 Office visit Kaylynn Mendez CONSERVATION OFFICER 09/27/2011 Office visit Kaylynn Mendez CONSERVATION OFFICER 08/19/2011 Hospital John Hoskins MD 08/18/2011 [facility] John Hoskins MD 08/18/2011 Office visit Kaylynn Mendez CONSERVATION OFFICER 08/02/2011 Office visit Kaylynn Mendez CONSERVATION OFFICER 07/08/2011 Office visit Kaylynn Mendez CONSERVATION OFFICER 07/05/2011 Office visit Odell Tierney MD 06/15/2011 Office visit Kaylynn Mendez CONSERVATION OFFICER 05/14/2011 Office visit Kaylynn Andrea CONSERVATION OFFICER 05/11/2011 Office visit Odell Tierney MD 04/28/2011 Office visit Kaylynn Mendez CONSERVATION OFFICER 03/02/2011 Office visit Chadd Norris DO [...]
--- OUTSIDE RECORDS SUMMARY | 2018-05-09 19:58 | XMS REPORT ---
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 Name Role Phone Kaylynn Mendez PCP [...] times per day for 7 days Zithromax Z-Smion 250 mg oral tablet 05/09/2013 05/14/2013 take [...] 08/27/2014 use as directed for 99 days [place] 5-325 mg oral tablet 06/17/2014 06/27/2014 take [...] a day as needed for 30 days [id number] 3.5-10,000-1 mg/mL-unit/mL-% otic drops,suspension 201401/08/2015 instill 4 [...] Reviewed 04/28/2011 12:00 AM Decadron 1 mg ND#[id number] (Jr) Reviewed 04/28/2011 12:00 AM Depo-Medrol 80 mg NDC#[id number]-Izceqmnz Reviewed 09/02/2015 12:00 AM Toradol 60 Mg ND#7279-8021-89 Reviewed 09/02/2015 12:00 AM Phenergan, Up to 50 Mg RHC Medicaid Reviewed 05/11/2011 12:00 AM N BLOCK INJ OCCIPITAL Reviewed 05/11/2011 12:00 AM Kenalog Lw-[address]-20 ANNA Reviewed 06/15/2011 12:00 AM COMPLETE CBC W/AUTO DIFF WBC Returned 06/15/2011 12:00 AM COMPREHEN METABOLIC PANEL Returned 07/08/2011 12:00 AM THER/PROPH/DIAG INJ SC/IM Reviewed 07/08/2011 12:00 AM Toradol,15mg ND#[id number], Brunildaer Reviewed 07/08/2011 12:00 AM Phenergan 50 Mg Im Nd 2054-4514-78 ALL[place] Reviewed 08/02/2011 12:00 AM THER/PROPH/DIAG INJ SC/IM Reviewed 08/02/2011 12:00 AM Decadron 1 mg NDC#[id number] (Jr) Reviewed 08/02/2011 12:00 AM Depo-Medrol 80 mg NDC#[id number]-Alimavis Reviewed 09/27/2011 12:00 AM THER/PROPH/DIAG INJ SC/IM Reviewed 09/27/2011 12:00 AM Depo-Medrol 80 mg NDC#[id number]-Cectwyvh Reviewed 10/14/2011 12:00 AM X-RAY EXAM OF ABDOMEN Returned 10/14/2011 12:00 AM URINALYSIS AUTO W/O SCOPE Reviewed 12/23/2011 12:00 AM THER/PROPH/DIAG INJ SC/IM Reviewed 12/23/2011 12:00 AM Decadron 1 mg NDC#[id number] (Jr) Reviewed 12/23/2011 12:00 AM Depo-Medrol 80 mg NDC#[id number]-Nemrozhi Reviewed 02/09/2012 12:00 AM THER/PROPH/DIAG INJ SC/IM Reviewed 02/09/2012 12:00 AM Decadron 1 mg NDC#[id number] (Jr) Reviewed 02/09/2012 12:00 AM Depo-Medrol 80 mg NDC#[id number]-Fpqqdicv Reviewed 03/15/2012 12:00 AM N BLOCK INJ OCCIPITAL Reviewed 03/15/2012 12:00 AM Kenalog Ej-[address]-20 ANNA Reviewed 04/11/2012 12:00 AM COMPLETE CBC W/AUTO DIFF WBC Returned 04/11/2012 12:00 AM COMPREHEN METABOLIC PANEL Returned 04/11/2012 12:00 AM LIPID PANEL Returned 04/11/2012 12:00 AM ASSAY THYROID STIM HORMONE Returned 06/20/2012 12:00 AM THER/PROPH/DIAG INJ SC/IM Reviewed 06/20/2012 12:00 AM Decadron, Per 1 Mg ND# [address]-57 Reviewed 06/20/2012 12:00 AM Depo-Medrol, Per 80 Mg NDC#4299-1699-16 Reviewed 09/06/2012 12:00 AM N BLOCK INJ OCCIPITAL Reviewed 09/06/2012 12:00 AM Kenalog Ke-[address]-20 ANNA Reviewed 09/06/2012 12:00 AM X-RAY EXAM RIBS UNI 2 VIEWS Returned 09/26/2012 12:00 AM THER/PROPH/DIAG INJ SC/IM Reviewed 09/26/2012 12:00 AM Decadron, Per 1 Mg NDC# [address]-13 Reviewed 09/26/2012 12:00 AM Depo-Medrol, Per 80 Mg NDC#2144-4655-54 Reviewed 10/03/2012 12:00 AM URINALYSIS AUTO W/O SCOPE Reviewed 10/03/2012 12:00 AM THER/PROPH/DIAG INJ SC/IM Reviewed 10/03/2012 12:00 AM Toradol 60 Mg [facility]#7030-1251-24 Reviewed 10/03/2012 12:00 AM Phenergan, 25Mg ND#2189-5189-33 Reviewed 10/19/2012 12:00 AM N BLOCK INJ OCCIPITAL Reviewed 10/19/2012 12:00 AM Kenalog, Per 10 Mg ND#0740-4789-44 Reviewed 10/19/2012 12:00 AM Toradol 30 Mg ND#0449-0671-12 Reviewed 10/19/2012 12:00 AM THER/PROPH/DIAG INJ SC/IM Reviewed 10/31/2012 12:00 AM COMPLETE CBC W/AUTO DIFF WBC Returned 10/31/2012 12:00 AM COMPREHEN METABOLIC PANEL Returned 10/31/2012 12:00 AM LIPID PANEL Returned 11/03/2012 12:[address] THORAX W/O & W/DYE Returned 11/08/2012 12:00 AM N BLOCK INJ OCCIPITAL Reviewed 11/08/2012 12:00 AM Kenalog My-[address]-20 ANNA Reviewed 11/27/2012 12:00 AM COMPLETE CBC [...] 12:00 AM Decadron, Per 1 Mg [facility]# [address]-37 Reviewed 01/25/2013 12:00 AM Depo-Medrol, Per 80 Mg [facility]#2496-5226-49 Reviewed 01/26/2013 12:00 AM IMMUNOTHERAPY INJECTIONS Returned [...] 12:00 AM Decadron, Per 1 Mg [facility]# [address]-96 Reviewed 05/16/2013 12:00 AM Depo-Medrol, Per 80 Mg [facility]#3511-1805-65 Reviewed 05/31/2013 12:00 AM IMMUNOTHERAPY INJECTIONS Reviewed 06/08/2013 12:00 AM IMMUNOTHERAPY INJECTIONS Reviewed 06/14/2013 12:00 AM IMMUNOTHERAPY INJECTIONS Reviewed 06/28/2013 12:00 AM IMMUNOTHERAPY INJECTIONS Reviewed 07/12/2013 12:00 AM X-RAY EXAM RIBS UNI 2 VIEWS Returned 07/18/2013 12:00 AM Toradol 60 Mg [facility]#6443-7605-21 Reviewed 07/18/2013 12:00 AM THER/PROPH/DIAG INJ SC/IM Reviewed 08/23/2013 12:00 AM COMPLETE CBC W/AUTO DIFF WBC Reviewed 08/23/2013 12:00 AM COMPREHEN METABOLIC PANEL Reviewed 08/23/2013 12:00 AM LIPID PANEL Reviewed 08/31/2013 12:00 AM X-RAY EXAM OF LOWER LEG Returned 09/04/2013 12:00 AM IMMUNOTHERAPY INJECTIONS Reviewed 09/14/2013 12:00 AM THER/PROPH/DIAG INJ SC/IM Reviewed 09/14/2013 12:00 AM Decadron, Per 1 Mg [facility]# [address]-48 Reviewed 09/14/2013 12:00 AM Depo-Medrol, Per 80 Mg [facility]#3258-2459-42 Reviewed 09/20/2013 12:00 AM IMMUNOTHERAPY INJECTIONS Reviewed [...] INJ OCCIPITAL Reviewed 12/10/2009 12:00 AM Kenalog Ih-[address]-20 ANNA Reviewed 12/16/2009 12:00 AM HIV-1ANTIBODY Reviewed 12/16/2009 12:00 AM COMPLETE CBC W/AUTO DIFF WBC Reviewed 12/16/2009 12:00 AM METABOLIC PANEL TOTAL CA Reviewed 12/16/2009 12:00 AM Type and screen Reviewed 12/16/2009 12:00 AM PROTHROMBIN TIME Reviewed 12/16/2009 12:00 AM THROMBOPLASTIN TIME PARTIAL Reviewed 03/18/2010 12:00 AM DRAIN/INJ JOINT/BURSA W/O US Reviewed 03/18/2010 12:00 AM Kenalog Qx-[address]-20 ANNA Reviewed 11/21/2013 12:00 AM RADEX HAND MINIMUM 3 VIEWS Returned 06/03/2010 12:00 AM INJ TRIGGER POINT 1/2 MUSCL Reviewed 06/03/2010 12:00 AM Kenalog per 10Mg Im-[facility]#[address]-97(Niall) Reviewed 12/05/2013 12:00 AM COMPLETE CBC W/AUTO [...] Reviewed 07/23/2010 12:00 AM Kenalog per 10Mg Im-[facility]#[address]-56(Niall) Reviewed 2014 12:00 AM COMPLETE CBC W/AUTO [...] INJ OCCIPITAL Reviewed 10/01/2010 12:00 AM Kenalog Wy-[address]-20 ANNA Reviewed 07/25/2014 12:00 AM THER/PROPH/DIAG INJ [...] 0.60 mg/dLCALCIUM 10.90 mg/ dLeGFR >60 mL/min/1.73 [id number] 45.0 U/L 08/31/2013 10:54 AM GLUCOSE 255.0 [...] 0.40 mg/ dLCALCIUM 10.60 mg/dLeGFR >60 mL/min/1.73 [id number] 369.0 mg/ dLCHOLESTEROL 153.0 mg/dLHDL 26.0 mg/dLLDL [...] BILI 0.30 mg/dLCALCIUM 10.0 mg/dLeGFR >60 mL/min/1.73 [id number] YELLOW APPEARANCE CLEAR SPEC GRAV 1.010 pH [...] 141 Influenza 04/24/2014 sanofi pasteur PMC Fluzone [id number] Intramuscular Left Upper Arm 02/27/2014 01/15/2014 141 Influenza 02/13/2015 sanofi pasteur PMC Fluzone [id number] Intramuscular Left Deltoid 02/13/2015 01/03/2015 140 Tdap [...] 4:18PM Lichen sclerosus May 08 2015 4:18PM Payers Insurance Name Company Name Plan Name Plan Number Policy Number Policy Group Number Start Date Medicare Part A Medicare [facility] [id number] N/A [facility] Comm [id number] N/A Medicare Part A Medicare - Lab/Xray [id number] N/A Medicare Part B Medicare Of [place] [id number] Monday, February 28, 2000 [facility] Prog [id number] Tuesday, November 10, 2009 Medicare Part A Medicare Part A [id number] N/A [place] [employer] - [facility] [place] [employer] - [facility] [id number] May [facility] [place] [facility] Plan of [id number] Wednesday, May 30, 2012 History of Encounters Visit Date Visit Type Provider 09/23/2015 Office visit Kaylynn Mendez PAPER WINDER 09/16/[address] Pepe Figueroa MD 09/02/2015 Office visit Kaylynn Mendez PAPER WINDER 09/01/2015 Office visit Kaylynn Mendez PAPER WINDER 07/30/2015 Office visit Heena Dumont MD 07/15/2015 Office visit Kaylynn Mendez PAPER WINDER 07/04/2015 Office visit Heena Dumont MD 06/06/2015 Office visit Heena Dumont MD 06/06/2015 Office visit Kaylynn Mendez PAPER WINDER 06/02/2015 Office visit Kaylynn Mendez PAPER WINDER 05/26/2015 Office visit Kaylynn Mendez PAPER WINDER 05/20/2015 Office visit Kaylynn Mendez PAPER WINDER 05/08/2015 Office visit Heena Dumont MD 05/06/2015 Office visit Kaylynn Mendez PAPER WINDER 04/29/2015 Office visit Kaylynn Mendez PAPER WINDER 03/27/2015 Voided Brittni Yanez PAPER WINDER 03/21/2015 Office visit Heena Dumont MD 03/12/2015 Office visit Kaylynn Mendez PAPER WINDER 02/26/2015 Office visit Brittni Yanez PAPER WINDER 02/13/2015 Office visit Heena Dumont MD 01/15/2015 Office visit Brittni Yanez PAPER WINDER 01/13/2015 Office visit Heena Dumont MD 01/08/[address] Carol Fowler MD 01/01/2015 Office visit Brittni Yanez PAPER WINDER 12/13/2014 Office visit Heena Dumont MD 11/27/2014 Office visit Kaylynn Mendez PAPER WINDER 11/14/2014 Office visit Heena Dumont MD 10/18/2014 Office visit Heena Dumont MD 10/17/2014 Hospital John Hoskins MD 10/09/2014 Office visit Heena Dumont MD 09/25/2014 Office visit Heena Dumont MD 09/17/2014 Office visit Kaylynn Mendez PAPER WINDER 09/04/2014 Office visit Heena Dumont MD 08/28/2014 Office visit Kaylynn Mendez PAPER WINDER 08/23/2014 Hospital John Hoskins MD 08/01/2014 Office visit Kaylynn Mendez PAPER WINDER 07/29/2014 Office visit Heena Dumont MD 07/25/2014 Nurse visit Heena Dumont MD 07/17/2014 Office visit Kaylynn Mendez PAPER WINDER 07/11/2014 Office visit Heena Dumont MD 07/01/2014 Office visit Heena Dumont MD 06/25/2014 Office visit Kaylynn Mendez PAPER WINDER 06/12/2014 Office visit Kaylynn Mendez PAPER WINDER 06/06/2014 Office visit Kaylynn Mendez PAPER WINDER 05/27/2014 Office visit Heena Dumont MD 04/20/2014 Office visit Yesica Falcon PAPER WINDER 03/29/2014 Office visit Na Jones PAPER WINDER 03/15/2014 Office visit Heena Dumont MD 2014 Office visit Heena Dumont MD 2014 [facility] John Hoskins MD 02/27/2014 Nurse visit Heena Dumont MD 02/13/2014 Office visit Lena El PAPER WINDER 02/07/2014 Office visit Heena Dumont MD 02/03/2014 Office visit Na Jones PAPER WINDER 01/30/2014 Office visit Kaylynn Mendez PAPER WINDER 01/24/2014 Office visit Sundeep Russell PAPER WINDER 01/16/2014 Office visit Kaylynn Mendez PAPER WINDER 01/10/2014 Nurse visit Kaylynn Mendez PAPER WINDER 01/08/2014 Office visit Kaylynn Walker PAPER WINDER 12/05/2013 Office visit Kaylynn Mendez PAPER WINDER 11/21/2013 Office visit Kaylynn Mendez PAPER WINDER 10/23/2013 Office visit Brittni Yanez PAPER WINDER 10/17/2013 Nurse visit Heena Dumont MD 10/12/2013 Office visit Kaylynn Mendez PAPER WINDER 10/02/2013 Office visit Heena Dumont MD 09/20/2013 Nurse visit Kaylynn Mendez PAPER WINDER 09/20/2013 Voided Heena Dumont MD 09/14/2013 Office visit Kaylynn Walker PAPER WINDER 09/05/2013 Office visit Sundeep Russell PAPER WINDER 09/04/2013 Nurse visit Kaylynn Walker PAPER WINDER 08/31/2013 Office visit Kaylynn Walker PAPER WINDER 08/23/2013 Office visit Heena Dumont MD 08/10/2013 Office visit Kaylynn Mendez PAPER WINDER 07/25/2013 Office visit Kaylynn Walker PAPER WINDER 07/18/2013 Office visit Kaylynn Walker PAPER WINDER 07/12/2013 Office visit Kaylynn Walker PAPER WINDER 06/28/2013 Nurse visit Kaylynn Walker PAPER WINDER 06/14/2013 Nurse visit Kaylynn Walker PAPER WINDER 06/08/2013 Nurse visit Kaylynn Walker PAPER WINDER 05/31/2013 Nurse visit Chadd Norris DO 05/18/2013 Office visit Terese Davidson MD 05/16/2013 Office visit Kaylynn Walker PAPER WINDER 05/09/2013 Office visit Kaylynn Walker PAPER WINDER 04/29/2013 [facility] John Hoskins MD 04/25/2013 Nurse visit Kaylynn Walker PAPER WINDER 04/17/2013 Office visit Kaylynn Walker PAPER WINDER 04/03/2013 Nurse visit Kaylynn Walker PAPER WINDER 04/03/2013 Office visit Terese Davidson MD 03/28/2013 Office visit Sundeep Russell PAPER WINDER 03/21/2013 Office visit Kaylynn Mendez PAPER WINDER 03/20/2013 Office visit Terese Davidson MD 03/14/2013 Nurse visit Kaylynn Mendez PAPER WINDER 03/05/2013 Nurse visit Kaylynn Walker PAPER WINDER 02/19/2013 Office visit Terese Davidson MD 02/16/2013 Nurse visit Kaylynn Walker PAPER WINDER 02/09/2013 Office visit Sundeep Russell PAPER WINDER 02/08/2013 Nurse visit Kaylynn Walker PAPER WINDER 02/01/2013 Nurse visit Kaylynn Walker PAPER WINDER 01/26/2013 Nurse visit Sabrina Andrea OPERATIONS SUPPORT REPRESENTATIVE 01/25/2013 Office visit Kaylynn Walker PAPER WINDER 01/22/2013 Office visit Yoan Castaneda MD 01/18/2013 Nurse visit Kaylynn Walker PAPER WINDER 01/11/2013 Nurse visit Kaylynn Walker PAPER WINDER 01/05/2013 Nurse visit Kaylynn Walker PAPER WINDER 12/29/2012 Office visit Kaylynn Walker PAPER WINDER 11/27/2012 Office visit Kaylynn Mendez PAPER WINDER 11/08/2012 Office visit Odell Tierney MD 11/08/2012 Voided Odell Tierney MD 11/07/2012 Office visit Kaylynn Walker PAPER WINDER 10/31/2012 [facility] John Hoskins MD 10/31/2012 Office visit Kaylynn Walker PAPER WINDER 10/19/2012 Office visit Genoveva Ayala PAPER WINDER 10/10/2012 Office visit Kaylynn Walker PAPER WINDER 10/03/2012 Office visit Kaylynn Walker PAPER WINDER 09/26/2012 Office visit Kaylynn Walker PAPER WINDER 09/06/2012 Office visit Kaylynn Walker PAPER WINDER 09/06/2012 Office visit Odell Tierney MD 08/31/2012 Voided Kaylynn Mendez PAPER WINDER 07/28/2012 Office visit Kaylynn Walker PAPER WINDER 07/27/2012 Office visit David Joyner DO 07/20/2012 [facility] David Joyner DO 07/13/2012 Hospital David Joyner DO 07/11/2012 Office visit Kaylynn Mendez PAPER WINDER 06/27/2012 Hospital Odell Tierney MD 06/21/2012 Office visit David Joyner DO 06/21/2012 Office visit Odell Tierney MD 06/20/2012 Office visit Brittni Yanez PAPER WINDER 06/06/2012 Office visit Odell Tierney MD 05/03/2012 Office visit Kaylynn eMndez PAPER WINDER 04/28/2012 Office visit Brittni Yanez PAPER WINDER 04/11/2012 Office visit Kaylynn Mendez PAPER WINDER 04/06/2012 [facility] John Hoskins MD 03/30/2012 Office visit Kaylynn Mendez PAPER WINDER 03/15/2012 Office visit Kaylynn Mendez PAPER WINDER 03/15/2012 Office visit Odell Tierney MD 02/09/2012 Office visit Kaylynn Mendez PAPER WINDER 12/23/2011 Office visit Kaylynn Mendez PAPER WINDER 11/02/2011 Office visit Kaylynn Mendez PAPER WINDER 10/14/2011 Office visit Kaylynn Mendez PAPER WINDER 09/27/2011 Office visit Kaylynn Mendez PAPER WINDER 08/19/2011 Hospital John Hoskins MD 08/18/2011 [facility] John Hoskins MD 08/18/2011 Office visit Kaylynn Mendez PAPER WINDER 08/02/2011 Office visit Kaylynn Mendez PAPER WINDER 07/08/2011 Office visit Kaylynn Mendez PAPER WINDER 07/05/2011 Office visit Odell Tierney MD 06/15/2011 Office visit Kaylynn Mendez PAPER WINDER 05/14/2011 Office visit Kaylynn Mendez PAPER WINDER 05/11/2011 Office visit Odell Tierney MD 04/28/2011 Office visit Kaylynn Mendez PAPER WINDER 03/02/2011 Office visit Chadd Norris DO 02/17/2011 [...]
--- OUTSIDE RECORDS SUMMARY | 2018-05-09 20:01 | XMS REPORT ---
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 Name Role Phone Kaylynn Mendez PCP Unavailable [...] oral route once daily for 4 days Mildred Davises 100 mg oral capsule 10/02/2013 11/01/2013 take [...] 08/27/2014 use as directed for 99 days [place] 5-325 mg oral tablet 06/17/2014 06/27/2014 take [...] a day as needed for 30 days [id number]-[id number]-UW 3.5-10,000-1 mg/mL-unit/mL-% otic drops,suspension 201401/08/2015 instill 4 [...] Reviewed 04/28/2011 12:00 AM Decadron 1 mg NDC#[id number] (Jr) Reviewed 04/28/2011 12:00 AM Depo-Medrol 80 mg NDC#[id number]-Yfmijxen Reviewed 05/11/2011 12:00 AM N BLOCK INJ OCCIPITAL Reviewed 05/11/2011 12:00 AM Kenalog Ti-[address]-20 ANNA Reviewed 06/15/2011 12:00 AM COMPLETE CBC W/AUTO DIFF WBC Returned 06/15/2011 12:00 AM COMPREHEN METABOLIC PANEL Returned 07/08/2011 12:00 AM THER/PROPH/DIAG INJ SC/IM Reviewed 07/08/2011 12:00 AM Toradol,15mg NDC#[id number], [place] Reviewed 07/08/2011 12:00 AM Phenergan 50 Mg Im Ndc 6356-3022-67 ALLIE Hoskins Reviewed 08/02/2011 12:00 AM THER/PROPH/DIAG INJ SC/IM Reviewed 08/02/2011 12:00 AM Decadron 1 mg NDC#[id number] (Jr) Reviewed 08/02/2011 12:00 AM Depo-Medrol 80 mg NDC#[id number]-Dquivtte Reviewed 09/27/2011 12:00 AM THER/PROPH/DIAG INJ SC/IM Reviewed 09/27/2011 12:00 AM Depo-Medrol 80 mg NDC#[id number]-Uawycdlg Reviewed 10/14/2011 12:00 AM X-RAY EXAM OF ABDOMEN Returned 10/14/2011 12:00 AM URINALYSIS AUTO W/O SCOPE Reviewed 12/23/2011 12:00 AM THER/PROPH/DIAG INJ SC/IM Reviewed 12/23/2011 12:00 AM Decadron 1 mg NDC#[id number] (Jr) Reviewed 12/23/2011 12:00 AM Depo-Medrol 80 mg NDC#[id number]-Manopbbx Reviewed 02/09/2012 12:00 AM THER/PROPH/DIAG INJ SC/IM Reviewed 02/09/2012 12:00 AM Decadron 1 mg NDC#[id number] (Jr) Reviewed 02/09/2012 12:00 AM Depo-Medrol 80 mg NDC#[id number]-Ukfzxawa Reviewed 03/15/2012 12:00 AM N BLOCK INJ OCCIPITAL Reviewed 03/15/2012 12:00 AM Kenalog Km-[address]-20 ANNA Reviewed 04/11/2012 12:00 AM COMPLETE CBC W/AUTO DIFF WBC Returned 04/11/2012 12:00 AM COMPREHEN METABOLIC PANEL Returned 04/11/2012 12:00 AM LIPID PANEL Returned 04/11/2012 12:00 AM ASSAY THYROID STIM HORMONE Returned 06/20/2012 12:00 AM THER/PROPH/DIAG INJ SC/IM Reviewed 06/20/2012 12:00 AM Decadron, Per 1 Mg ND# [address]-00 Reviewed 06/20/2012 12:00 AM Depo-Medrol, Per 80 Mg ND#8800-8740-13 Reviewed 09/06/2012 12:00 AM N BLOCK INJ OCCIPITAL Reviewed 09/06/2012 12:00 AM Kenalog Bk-[address]-20 ANNA Reviewed 09/06/2012 12:00 AM X-RAY EXAM RIBS UNI 2 VIEWS Returned 09/26/2012 12:00 AM THER/PROPH/DIAG INJ SC/IM Reviewed 09/26/2012 12:00 AM Decadron, Per 1 Mg ND# [address]-08 Reviewed 09/26/2012 12:00 AM Depo-Medrol, Per 80 Mg [facility]#6641-5158-53 Reviewed 10/03/2012 12:00 AM URINALYSIS AUTO W/O SCOPE Reviewed 10/03/2012 12:00 AM THER/PROPH/DIAG INJ SC/IM Reviewed 10/03/2012 12:00 AM Toradol 60 Mg [facility]#1159-7758-88 Reviewed 10/03/2012 12:00 AM Phenergan, 25Mg [facility]#7028-8619-71 Reviewed 10/19/2012 12:00 AM N BLOCK INJ OCCIPITAL Reviewed 10/19/2012 12:00 AM Kenalog, Per 10 Mg [facility]#7000-1439-41 Reviewed 10/19/2012 12:00 AM Toradol 30 Mg [facility]#5052-2192-88 Reviewed 10/19/2012 12:00 AM THER/PROPH/DIAG INJ SC/IM Reviewed 10/31/2012 12:00 AM COMPLETE CBC W/AUTO DIFF WBC Returned 10/31/2012 12:00 AM COMPREHEN METABOLIC PANEL Returned 10/31/2012 12:00 AM LIPID PANEL Returned 11/03/2012 12:[address] THORAX W/O & W/DYE Returned 11/08/2012 12:00 AM N BLOCK INJ OCCIPITAL Reviewed 11/08/2012 12:00 AM Kenalog Rc-[address]-20 ANNA Reviewed 11/27/2012 12:00 AM COMPLETE CBC [...] 1 Mg [facility]# [address]-03 Reviewed 01/25/2013 12:00 AM Depo-Medrol, Per 80 Mg [facility]#6388-7809-74 Reviewed 01/26/2013 12:00 AM IMMUNOTHERAPY INJECTIONS Returned [...] 1 Mg [facility]# [address]-65 Reviewed 05/16/2013 12:00 AM Depo-Medrol, Per 80 Mg [facility]#6101-8141-60 Reviewed 05/31/2013 12:00 AM IMMUNOTHERAPY INJECTIONS Reviewed 06/08/2013 12:00 AM IMMUNOTHERAPY INJECTIONS Reviewed 06/14/2013 12:00 AM IMMUNOTHERAPY INJECTIONS Reviewed 06/28/2013 12:00 AM IMMUNOTHERAPY INJECTIONS Reviewed 07/12/2013 12:00 AM X-RAY EXAM RIBS UNI 2 VIEWS Returned 07/18/2013 12:00 AM Toradol 60 Mg [facility]#2368-0331-72 Reviewed 07/18/2013 12:00 AM THER/PROPH/DIAG INJ SC/IM [...] 1 Mg [facility]# [address]-92 Reviewed 09/14/2013 12:00 AM Depo-Medrol, Per 80 Mg [facility]#0271-6907-65 Reviewed 09/20/2013 12:00 AM IMMUNOTHERAPY INJECTIONS Reviewed [...] INJ OCCIPITAL Reviewed 12/10/2009 12:00 AM Kenalog Np-[address]-20 ANNA Reviewed 12/16/2009 12:00 AM HIV-1ANTIBODY Reviewed 12/16/2009 12:00 AM COMPLETE CBC W/AUTO DIFF WBC Reviewed 12/16/2009 12:00 AM METABOLIC PANEL TOTAL CA Reviewed 12/16/2009 12:00 AM Type and screen Reviewed 12/16/2009 12:00 AM PROTHROMBIN TIME Reviewed 12/16/2009 12:00 AM THROMBOPLASTIN TIME PARTIAL Reviewed 03/18/2010 12:00 AM DRAIN/INJ JOINT/BURSA W/O US Reviewed 03/18/2010 12:00 AM Kenalog Ag-[address]-20 ANNA Reviewed 11/21/2013 12:00 AM RADEX HAND MINIMUM 3 VIEWS Returned 06/03/2010 12:00 AM INJ TRIGGER POINT 1/2 MUSCL Reviewed 06/03/2010 12:00 AM Kenalog per 10Mg Im-[facility]#[address]-26(Niall) Reviewed 12/05/2013 12:00 AM COMPLETE CBC W/AUTO [...] Reviewed 07/23/2010 12:00 AM Kenalog per 10Mg Im-[facility]#[address]-69(Niall) Reviewed 2014 12:00 AM COMPLETE CBC W/AUTO [...] INJ OCCIPITAL Reviewed 10/01/2010 12:00 AM Quentin Ww-[address]-20 ANNA Reviewed 07/25/2014 12:00 AM THER/PROPH/DIAG INJ [...] 0.60 mg/dLCALCIUM 10.90 mg/ dLeGFR >60 mL/min/1.73 [id number] 45.0 U/L 08/31/2013 10:54 AM GLUCOSE 255.0 [...] 0.40 mg/ dLCALCIUM 10.60 mg/dLeGFR >60 mL/min/1.73 [id number] 369.0 mg/ dLCHOLESTEROL 153.0 mg/dLHDL 26.0 mg/dLLDL [...] BILI 0.30 mg/dLCALCIUM 10.0 mg/dLeGFR >60 mL/min/1.73 [id number] YELLOW APPEARANCE CLEAR SPEC GRAV 1.010 pH 5.5 PROTEIN NEGATIVE GLUCOSE NEGATIVE KETONE NEGATIVE BILIRUBIN NEGATIVE BLOOD NEGATIVE NITRITE NEGATIVE [place] SCREEN NEGATIVE Est Avg Glucose 134.1 mg/dLMICROALBUMIN UR <0.5 MG/DL 02/13/2015 4:38 PM RMSF, IgG, EIA Negative [facility] [...] 141 Influenza 04/24/2014 sanofi pasteur PMC Fluzone [id number] Intramuscular Left Upper Arm 02/27/2014 01/15/2014 141 Influenza 02/13/2015 sanofi pasteur PMC Fluzone [id number] Intramuscular Left Deltoid 02/13/2015 01/03/2015 140 Tdap 06/06/2015 GlaxoSmFishin' GlueKlTribeHR SKB BOOSTRIX [id number] Intramuscular Left Deltoid 06/06/2015 [...] upper respiratory infection Jul 15 2015 9:01AM Payers Insurance Name Company Name Plan Name Plan Number Policy Number Policy Group Number Start Date Medicare Part A Medicare Part A [id number] N/A [facility] - RH - Community Plan of [facility] RHC Comm [id number] N/A [employer] - RHC [employer] - RHC [id number] [facility] Plan [facility] Comm Plan of [id number] Wednesday, 2012 Medicare Part B Medicare [facility] [id number] Monday, 2000 [place] [employer] [id number] Tuesday, 2009 History of Encounters Visit Date Visit Type Provider 07/15/2015 Office visit Kaylynn Mendez INSTALLER SOFT TOP 07/04/2015 Office visit Heena Dumont MD 06/06/2015 Office visit Heena Dumont MD 06/06/2015 Office visit Kaylynn Mendez INSTALLER SOFT TOP 06/02/2015 Office visit Kaylynn Mendez INSTALLER SOFT TOP 05/26/2015 Office visit Kaylynn Mendez INSTALLER SOFT TOP 05/20/2015 Office visit Kaylynn Mendez INSTALLER SOFT TOP 05/08/2015 Office visit Heena Dumont MD 05/06/2015 Office visit Kaylynn Mendez INSTALLER SOFT TOP 04/29/2015 Office visit Kaylynn Mendez INSTALLER SOFT TOP 03/27/2015 Voided Brittni Yanez INSTALLER SOFT TOP 03/21/2015 Office visit Heena Dumont MD 03/12/2015 Office visit Kaylynn Mendez INSTALLER SOFT TOP 02/26/2015 Office visit Brittni Yanez INSTALLER SOFT TOP 02/13/2015 Office visit Heena Dumont MD 01/15/2015 Office visit Brittni Yanez INSTALLER SOFT TOP 01/13/2015 Office visit Heena Dumont MD 01/08/[address] Carol Fowler MD 01/01/2015 Office visit Brittni Yanez INSTALLER SOFT TOP 12/13/2014 Office visit Heena Dumont MD 11/27/2014 Office visit Kaylynn Mendez INSTALLER SOFT TOP 11/14/2014 Office visit Heena Dumont MD 10/18/2014 Office visit Heena Dumont MD 10/17/2014 Hospital John Hoskins MD 10/09/2014 Office visit Heena Dumont MD 09/25/2014 Office visit Heena Dumont MD 09/17/2014 Office visit Kaylynn Mendez INSTALLER SOFT TOP 09/04/2014 Office visit Heena Dumont MD 08/28/2014 Office visit Kaylynn Mendez INSTALLER SOFT TOP 08/23/2014 [facility] John Hoskins MD 08/01/2014 Office visit Kaylynn Mendez INSTALLER SOFT TOP 07/29/2014 Office visit Heena Dumont MD 07/25/2014 Nurse visit Heena Dumont MD 07/17/2014 Office visit Kaylynn Mendez INSTALLER SOFT TOP 07/11/2014 Office visit Heena Dumont MD 07/01/2014 Office visit Heena Dumont MD 06/25/2014 Office visit Kaylynn Mendez INSTALLER SOFT TOP 06/12/2014 Office visit Kaylynn Mendez INSTALLER SOFT TOP 06/06/2014 Office visit Kaylynn Mendez INSTALLER SOFT TOP 05/27/2014 Office visit Heena Dumont MD 04/20/2014 Office visit Yesica Falcon INSTALLER SOFT TOP 03/29/2014 Office visit Na Jones INSTALLER SOFT TOP 03/15/2014 Office visit Heena Dumont MD 2014 Office visit Heena Dumont MD 2014 [facility] John Hoskins MD 02/27/2014 Nurse visit Heena Dumont MD 02/13/2014 Office visit Lena El INSTALLER SOFT TOP 02/07/2014 Office visit Heena Dumont MD 02/03/2014 Office visit Na Jones INSTALLER SOFT TOP 01/30/2014 Office visit Kaylynn Mendez INSTALLER SOFT TOP 01/24/2014 Office visit Sundeep Russell INSTALLER SOFT TOP 01/16/2014 Office visit Kaylynn Mendez INSTALLER SOFT TOP 01/10/2014 Nurse visit Kaylynn Mendez INSTALLER SOFT TOP 01/08/2014 Office visit Kaylynn Mendez INSTALLER SOFT TOP 12/05/2013 Office visit Kaylynn Mendez INSTALLER SOFT TOP 11/21/2013 Office visit Kaylynn Mendez INSTALLER SOFT TOP 10/23/2013 Office visit Brittni Yanez INSTALLER SOFT TOP 10/17/2013 Nurse visit Heena Dumont MD 10/12/2013 Office visit Kaylynn Mendez INSTALLER SOFT TOP 10/02/2013 Office visit Heena Dumont MD 09/20/2013 Nurse visit Kaylynn Mendez INSTALLER SOFT TOP 09/20/2013 Voided Heena Dumont MD 09/14/2013 Office visit Kaylynn Mendez INSTALLER SOFT TOP 09/05/2013 Office visit Sundeep Russell INSTALLER SOFT TOP 09/04/2013 Nurse visit Kaylynn eMndez INSTALLER SOFT TOP 08/31/2013 Office visit Kaylynn Walker INSTALLER SOFT TOP 08/23/2013 Office visit Heena Dumont MD 08/10/2013 Office visit Kaylynn Walker INSTALLER SOFT TOP 07/25/2013 Office visit Kaylynn Walker INSTALLER SOFT TOP 07/18/2013 Office visit Kaylynn Walker INSTALLER SOFT TOP 07/12/2013 Office visit Kaylynn Walker INSTALLER SOFT TOP 06/28/2013 Nurse visit Kaylynn Walker INSTALLER SOFT TOP 06/14/2013 Nurse visit Kaylynn Walker INSTALLER SOFT TOP 06/08/2013 Nurse visit Kaylynn Walker INSTALLER SOFT TOP 05/31/2013 Nurse visit Chadd Norris DO 05/18/2013 Office visit Terese Davidson MD 05/16/2013 Office visit Kaylynn Walker INSTALLER SOFT TOP 05/09/2013 Office visit Kaylynn Walker INSTALLER SOFT TOP 04/29/2013 [facility] John Hoskins MD 04/25/2013 Nurse visit Kaylynn Walker INSTALLER SOFT TOP 04/17/2013 Office visit Kaylynn Walker INSTALLER SOFT TOP 04/03/2013 Nurse visit Kaylynn Walker INSTALLER SOFT TOP 04/03/2013 Office visit Terese Davidson MD 03/28/2013 Office visit Sundeep Russell INSTALLER SOFT TOP 03/21/2013 Office visit Kaylynn Mendez INSTALLER SOFT TOP 03/20/2013 Office visit Terese Davidson MD 03/14/2013 Nurse visit Kaylynn Walker INSTALLER SOFT TOP 03/05/2013 Nurse visit Kaylynn Walker INSTALLER SOFT TOP 02/19/2013 Office visit Terese Davidson MD 02/16/2013 Nurse visit Kaylynn Walker INSTALLER SOFT TOP 02/09/2013 Office visit Sundeep Russell INSTALLER SOFT TOP 02/08/2013 Nurse visit Kaylynn Walker INSTALLER SOFT TOP 02/01/2013 Nurse visit Kaylynn Walker INSTALLER SOFT TOP 01/26/2013 Nurse visit Sabrina Mendez SUPERVISOR MAINSPRING FABRICATION 01/25/2013 Office visit Kaylynn Walker INSTALLER SOFT TOP 01/22/2013 Office visit Yoan Castaneda MD 01/18/2013 Nurse visit Kaylynn Walker INSTALLER SOFT TOP 01/11/2013 Nurse visit Kaylynn Walker INSTALLER SOFT TOP 01/05/2013 Nurse visit Kaylynn Walker INSTALLER SOFT TOP 12/29/2012 Office visit Kaylynn Walker INSTALLER SOFT TOP 11/27/2012 Office visit Kaylynn Walker INSTALLER SOFT TOP 11/08/2012 Office visit Odell Tierney MD 11/08/2012 Voided Odell Tierney MD 11/07/2012 Office visit Kaylynn Walker INSTALLER SOFT TOP 10/31/2012 [facility] John Hoskins MD 10/31/2012 Office visit Kaylynn Walker INSTALLER SOFT TOP 10/19/2012 Office visit Genoveva Ayala INSTALLER SOFT TOP 10/10/2012 Office visit Kaylynn Walker INSTALLER SOFT TOP 10/03/2012 Office visit Kaylynn Walker INSTALLER SOFT TOP 09/26/2012 Office visit Kaylynn Mendez INSTALLER SOFT TOP 09/06/2012 Office visit Kaylynn Mendze INSTALLER SOFT TOP 09/06/2012 Office visit Odell Tierney MD 08/31/2012 Voided Kaylynn Mendez INSTALLER SOFT TOP 07/28/2012 Office visit Kaylynn Mendez INSTALLER SOFT TOP 07/27/2012 Office visit David Ar DO 07/20/2012 Hospital David Sheriffuman DO 07/13/2012 Hospital David Jazieluman DO 07/11/2012 Office visit Kaylynn Mendez INSTALLER SOFT TOP 06/27/2012 [facility] Odell Tierney MD 06/21/2012 Office visit David Joyner DO 06/21/2012 Office visit Odell Tierney MD 06/20/2012 Office visit Brittni Yanez INSTALLER SOFT TOP 06/06/2012 Office visit Odell Tierney MD 05/03/2012 Office visit Kaylynn Mendez INSTALLER SOFT TOP 04/28/2012 Office visit Brittni Yanez INSTALLER SOFT TOP 04/11/2012 Office visit Kaylynn Mendez INSTALLER SOFT TOP 04/06/2012 [facility] John Hoskins MD 03/30/2012 Office visit Kaylynn Mendez INSTALLER SOFT TOP 03/15/2012 Office visit Kaylynn Mendez INSTALLER SOFT TOP 03/15/2012 Office visit Odell Tierney MD 02/09/2012 Office visit Kaylynn Mendez INSTALLER SOFT TOP 12/23/2011 Office visit Kaylynn Mendez INSTALLER SOFT TOP 11/02/2011 Office visit Kaylynn Mendez INSTALLER SOFT TOP 10/14/2011 Office visit Kaylynn Mendez INSTALLER SOFT TOP 09/27/2011 Office visit Kaylynn Mnedez INSTALLER SOFT TOP 08/19/2011 Hospital John Hoskins MD 08/18/2011 [facility] John Hoskins MD 08/18/2011 Office visit Kaylynn Mendez INSTALLER SOFT TOP 08/02/2011 Office visit Kaylynn Mendez INSTALLER SOFT TOP 07/08/2011 Office visit Kaylynn Mendez INSTALLER SOFT TOP 07/05/2011 Office visit Odell Tierney MD 06/15/2011 Office visit Kaylynn Mendez INSTALLER SOFT TOP 05/14/2011 Office visit Kaylynn Mendez INSTALLER SOFT TOP 05/11/2011 Office visit Odell Tierney MD 04/28/2011 Office visit Kaylynn Mendez INSTALLER SOFT TOP 03/02/2011 Office visit Chadd Norris DO 02/17/2011 Office visit Chadd Norris DO 01/19/2011 Office visit Odell Tierney MD 12/16/2010 Office visit Odlel Tierney MD 12/02/2010 Office visit Yoan Castaneda [...] visit Odell Tierney MD 11/26/2009 Office visit oYan Castaneda MD 11/17/2009 Office visit Odell Tierney MD 11/10/2009 Office visit Chadd Norris DO
--- OUTSIDE RECORDS SUMMARY | 2018-05-09 20:06 | XMS REPORT ---
Author Kaylynn Lyles Organization [facility] Address [address] [place], [place] [id number] Care Team Providers Care Equal Opportunity Director Name Role Phone Kaylynn Mendez PCP Unavailable [...] 08/27/2014 use as directed for 99 days [place] 5-325 mg oral tablet 06/17/2014 06/27/2014 take [...] a day as needed for 30 days hjqugjbi-kpjiyadcm-IX 3.5-10,000-1 mg/mL-unit/mL-% otic drops,suspension 201401/08/2015 instill 4 [...] Reviewed 04/28/2011 12:00 AM Decadron 1 mg ND#[id number] (Jr) Reviewed 04/28/2011 12:00 AM Depo-Medrol 80 mg NDC#[id number]-Lxfqlzko Reviewed 09/02/2015 12:00 AM Toradol 60 Mg ND#5637-1514-98 Reviewed 09/02/2015 12:00 AM Phenergan, Up to 50 Mg RHC Medicaid Reviewed 05/11/2011 12:00 AM N BLOCK INJ OCCIPITAL Reviewed 05/11/2011 12:00 AM Kenalog Ik-[address]-20 ANNA Reviewed 06/15/2011 12:00 AM COMPLETE CBC W/AUTO DIFF WBC Returned 06/15/2011 12:00 AM COMPREHEN METABOLIC PANEL Returned 07/08/2011 12:00 AM THER/PROPH/DIAG INJ SC/IM Reviewed 07/08/2011 12:00 AM Toradol,15mg ND#[id number], Brunildaer Reviewed 07/08/2011 12:00 AM Phenergan 50 Mg Im Nd 8147-9261-62 ALLIE Boss Reviewed 08/02/2011 12:00 AM THER/PROPH/DIAG INJ SC/IM Reviewed 08/02/2011 12:00 AM Decadron 1 mg NDC#[id number] (Jr) Reviewed 08/02/2011 12:00 AM Depo-Medrol 80 mg NDC#[id number]-Zoukkqpl Reviewed 09/27/2011 12:00 AM THER/PROPH/DIAG INJ SC/IM Reviewed 09/27/2011 12:00 AM Depo-Medrol 80 mg NDC#[id number]-Iectaxog Reviewed 10/14/2011 12:00 AM X-RAY EXAM OF ABDOMEN Returned 10/14/2011 12:00 AM URINALYSIS AUTO W/O SCOPE Reviewed 12/23/2011 12:00 AM THER/PROPH/DIAG INJ SC/IM Reviewed 12/23/2011 12:00 AM Decadron 1 mg NDC#[id number] (Jr) Reviewed 12/23/2011 12:00 AM Depo-Medrol 80 mg NDC#[id number]-Cplxpnix Reviewed 02/09/2012 12:00 AM THER/PROPH/DIAG INJ SC/IM Reviewed 02/09/2012 12:00 AM Decadron 1 mg NDC#[id number] (Jr) Reviewed 02/09/2012 12:00 AM Depo-Medrol 80 mg NDC#[id number]-Exthwssc Reviewed 03/15/2012 12:00 AM N BLOCK INJ OCCIPITAL Reviewed 03/15/2012 12:00 AM Kenalog Hc-[address]-20 ANNA Reviewed 04/11/2012 12:00 AM COMPLETE CBC W/AUTO DIFF WBC Returned 04/11/2012 12:00 AM COMPREHEN METABOLIC PANEL Returned 04/11/2012 12:00 AM LIPID PANEL Returned 04/11/2012 12:00 AM ASSAY THYROID STIM HORMONE Returned 06/20/2012 12:00 AM THER/PROPH/DIAG INJ SC/IM Reviewed 06/20/2012 12:00 AM Decadron, Per 1 Mg ND# [address]-69 Reviewed 06/20/2012 12:00 AM Depo-Medrol, Per 80 Mg NDC#4579-1195-20 Reviewed 09/06/2012 12:00 AM N BLOCK INJ OCCIPITAL Reviewed 09/06/2012 12:00 AM Kenalog Oq-[address]-20 ANNA Reviewed 09/06/2012 12:00 AM X-RAY EXAM RIBS UNI 2 VIEWS Returned 09/26/2012 12:00 AM THER/PROPH/DIAG INJ SC/IM Reviewed 09/26/2012 12:00 AM Decadron, Per 1 Mg NDC# [address]-59 Reviewed 09/26/2012 12:00 AM Depo-Medrol, Per 80 Mg NDC#3612-2728-82 Reviewed 10/03/2012 12:00 AM URINALYSIS AUTO W/O SCOPE Reviewed 10/03/2012 12:00 AM THER/PROPH/DIAG INJ SC/IM Reviewed 10/03/2012 12:00 AM Toradol 60 Mg [facility]#1800-7634-06 Reviewed 10/03/2012 12:00 AM Phenergan, 25Mg ND#5308-1003-49 Reviewed 10/19/2012 12:00 AM N BLOCK INJ OCCIPITAL Reviewed 10/19/2012 12:00 AM Kenalog, Per 10 Mg ND#4603-2505-34 Reviewed 10/19/2012 12:00 AM Toradol 30 Mg ND#2920-0034-70 Reviewed 10/19/2012 12:00 AM THER/PROPH/DIAG INJ SC/IM Reviewed 10/31/2012 12:00 AM COMPLETE CBC W/AUTO DIFF WBC Returned 10/31/2012 12:00 AM COMPREHEN METABOLIC PANEL Returned 10/31/2012 12:00 AM LIPID PANEL Returned 11/03/2012 12:[address] THORAX W/O & W/DYE Returned 11/08/2012 12:00 AM N BLOCK INJ OCCIPITAL Reviewed 11/08/2012 12:00 AM Kenalog Ch-[address]-20 ANNA Reviewed 11/27/2012 12:00 AM COMPLETE CBC [...] Per 1 Mg [facility]# [address]-19 Reviewed 01/25/2013 12:00 AM Depo-Medrol, Per 80 Mg [facility]#8809-8928-61 Reviewed 01/26/2013 12:00 AM IMMUNOTHERAPY INJECTIONS Returned [...] Per 1 Mg [facility]# [address]-71 Reviewed 05/16/2013 12:00 AM Depo-Medrol, Per 80 Mg [facility]#1735-3702-26 Reviewed 05/31/2013 12:00 AM IMMUNOTHERAPY INJECTIONS Reviewed 06/08/2013 12:00 AM IMMUNOTHERAPY INJECTIONS Reviewed 06/14/2013 12:00 AM IMMUNOTHERAPY INJECTIONS Reviewed 06/28/2013 12:00 AM IMMUNOTHERAPY INJECTIONS Reviewed 07/12/2013 12:00 AM X-RAY EXAM RIBS UNI 2 VIEWS Returned 07/18/2013 12:00 AM Toradol 60 Mg [facility]#7178-9366-85 Reviewed 07/18/2013 12:00 AM THER/PROPH/DIAG INJ SC/IM Reviewed 08/23/2013 12:00 AM COMPLETE CBC W/AUTO DIFF WBC Reviewed 08/23/2013 12:00 AM COMPREHEN METABOLIC PANEL Reviewed 08/23/2013 12:00 AM LIPID PANEL Reviewed 08/31/2013 12:00 AM X-RAY EXAM OF LOWER LEG Returned 09/04/2013 12:00 AM IMMUNOTHERAPY INJECTIONS Reviewed 09/14/2013 12:00 AM THER/PROPH/DIAG INJ SC/IM Reviewed 09/14/2013 12:00 AM Decadron, Per 1 Mg [facility]# [address]-26 Reviewed 09/14/2013 12:00 AM Depo-Medrol, Per 80 Mg [facility]#5274-4102-58 Reviewed 09/20/2013 12:00 AM IMMUNOTHERAPY INJECTIONS Reviewed [...] INJ OCCIPITAL Reviewed 12/10/2009 12:00 AM Kenalog Aw-[address]-20 ANNA Reviewed 12/16/2009 12:00 AM HIV-1ANTIBODY Reviewed 12/16/2009 12:00 AM COMPLETE CBC W/AUTO DIFF WBC Reviewed 12/16/2009 12:00 AM METABOLIC PANEL TOTAL CA Reviewed 12/16/2009 12:00 AM Type and screen Reviewed 12/16/2009 12:00 AM PROTHROMBIN TIME Reviewed 12/16/2009 12:00 AM THROMBOPLASTIN TIME PARTIAL Reviewed 03/18/2010 12:00 AM DRAIN/INJ JOINT/BURSA W/O US Reviewed 03/18/2010 12:00 AM Kenalog Zx-[address]-20 ANNA Reviewed 11/21/2013 12:00 AM RADEX HAND MINIMUM 3 VIEWS Returned 06/03/2010 12:00 AM INJ TRIGGER POINT 1/2 MUSCL Reviewed 06/03/2010 12:00 AM Kenalog per 10Mg Im-[facility][Note 3]#[address]-36(Niall) Reviewed 12/05/2013 12:00 AM COMPLETE CBC W/AUTO [...] Reviewed 07/23/2010 12:00 AM Kenalog per 10Mg Im-[facility]#[address]-55(Niall) Reviewed 2014 12:00 AM COMPLETE CBC W/AUTO [...] INJ OCCIPITAL Reviewed 10/01/2010 12:00 AM Kenalog Tu-[address]-20 ANNA Reviewed 07/25/2014 12:00 AM THER/PROPH/DIAG INJ [...] 0.60 mg/dLCALCIUM 10.90 mg/ dLeGFR >60 mL/min/1.73 [id number] 45.0 U/L 08/31/2013 10:54 AM GLUCOSE 255.0 [...] 0.40 mg/ dLCALCIUM 10.60 mg/dLeGFR >60 mL/min/1.73 [id number] 369.0 mg/ dLCHOLESTEROL 153.0 mg/dLHDL 26.0 mg/dLLDL [...] BILI 0.30 mg/dLCALCIUM 10.0 mg/dLeGFR >60 mL/min/1.73 [id number] YELLOW APPEARANCE CLEAR SPEC GRAV 1.010 pH 5.5 PROTEIN NEGATIVE GLUCOSE NEGATIVE KETONE NEGATIVE BILIRUBIN NEGATIVE BLOOD NEGATIVE NITRITE NEGATIVE LEUK SCREEN NEGATIVE HGB A1C 6.30 %Est Avg Glucose 134.1 mg/dLMICROALBUMIN UR <0.5 MG/DL 02/13/2015 4:38 PM RMSF, IgG, EIA Negative [facility] Spotted Fever,IgM 0.51 E. [...] 141 Influenza 04/24/2014 sanofi pasteur PMC Fluzone [id number] Intramuscular Left Upper Arm 02/27/2014 01/15/2014 141 Influenza 02/13/2015 sanofi pasteur PMC Fluzone [id number] Intramuscular Left Deltoid 02/13/2015 01/03/2015 140 Tdap 06/06/2015 GlaxoSmAppirioine SKB BOOSTRIX [id number] Intramuscular Left Deltoid 06/06/2015 [...] of both hips Jul 04 2015 11:14AM Payers Insurance Name Company Name Plan Name Plan Number Policy Number Policy Group Number Start Date Medicare Part A Medicare RHC [id number] N/A [facility] - C - [facility] [id number] N/A Medicare Part A Medicare - Lab/Xray [id number] N/A Medicare Part B Medicare Of [place] [id number] Monday, February 28, 2000 [place] [employer] [place] [employer] [place]g [id number] Tuesday, November 10, 2009 Medicare Part A Medicare Part A [id number] N/A [place] [employer] - RHC [place] [employer] - RHC [id number] [facility] Plan of [id number] Wednesday, May 30, 2012 History of Encounters Visit Date Visit Type Provider 09/23/2015 Office visit Kaylynn Mendez HR INTERN 09/16/[address] Pepe Figueroa MD 09/02/2015 Office visit Kaylynn Mendez HR INTERN 09/01/2015 Office visit Kaylynn Mendez HR INTERN 07/30/2015 Office visit Heena Dumont MD 07/15/2015 Office visit Kaylynn Mendez HR INTERN 07/04/2015 Office visit Heena Dumont MD 06/06/2015 Office visit Heena Dumont MD 06/06/2015 Office visit Kaylynn Mendez HR INTERN 06/02/2015 Office visit Kaylynn Mendez HR INTERN 05/26/2015 Office visit Kaylynn Mendez HR INTERN 05/20/2015 Office visit Kaylynn Mendez HR INTERN 05/08/2015 Office visit Heena Dumont MD 05/06/2015 Office visit Kaylynn Mendez HR INTERN 04/29/2015 Office visit Kaylynn Mendez HR INTERN 03/27/2015 Voided Brittni Yanez HR INTERN 03/21/2015 Office visit Heena Dumont MD 03/12/2015 Office visit Kaylynn Mendez HR INTERN 02/26/2015 Office visit Brittni Yanez HR INTERN 02/13/2015 Office visit Heena Dumont MD 01/15/2015 Office visit Brittni Yanez HR INTERN 01/13/2015 Office visit Heena Dumont MD 01/08/[address] aCrol Fowler MD 01/01/2015 Office visit Brittni Yanez HR INTERN 12/13/2014 Office visit Heena Dumont MD 11/27/2014 Office visit Kaylynn Mendez HR INTERN 11/14/2014 Office visit Heena Dumont MD 10/18/2014 Office visit Heena Dumont MD 10/17/2014 [facility] Eliseo Hoskins MD 10/09/2014 Office visit Heena Dumont MD 09/25/2014 Office visit Heena Dumont MD 09/17/2014 Office visit Kaylynn Mendez HR INTERN 09/04/2014 Office visit Heena Dumont MD 08/28/2014 Office visit Kaylynn Mendez HR INTERN 08/23/2014 [facility] Eliseo Hoskins MD 08/01/2014 Office visit Kaylynn Mendez HR INTERN 07/29/2014 Office visit Heena Dumont MD 07/25/2014 Nurse visit Heena Dumont MD 07/17/2014 Office visit Kaylynn Mendez HR INTERN 07/11/2014 Office visit Heena Dumont MD 07/01/2014 Office visit Heena Dumont MD 06/25/2014 Office visit Kaylynn Mendez HR INTERN 06/12/2014 Office visit Kaylynn Mendez HR INTERN 06/06/2014 Office visit Kaylynn Mendez HR INTERN 05/27/2014 Office visit Heena Dumont MD 04/20/2014 Office visit Yesica Falcon HR INTERN 03/29/2014 Office visit Na Jones HR INTERN 03/15/2014 Office visit Heena Dumont MD 2014 Office visit Heena Dumont MD 2014 [facility] John Hoskins MD 02/27/2014 Nurse visit Heena Dumont MD 02/13/2014 Office visit Lena El HR INTERN 02/07/2014 Office visit Heena Dumont MD 02/03/2014 Office visit Na Jones HR INTERN 01/30/2014 Office visit Kaylynn Mendez HR INTERN 01/24/2014 Office visit Sundeep Russell HR INTERN 01/16/2014 Office visit Kaylynn Mendez HR INTERN 01/10/2014 Nurse visit Kaylynn Mendez HR INTERN 01/08/2014 Office visit Kaylynn Mendez HR INTERN 12/05/2013 Office visit Kaylynn Mendez HR INTERN 11/21/2013 Office visit Kaylynn Mendez HR INTERN 10/23/2013 Office visit Brittni Yanez HR INTERN 10/17/2013 Nurse visit Heena Dumont MD 10/12/2013 Office visit Kaylynn Mendez HR INTERN 10/02/2013 Office visit Heena Dumont MD 09/20/2013 Nurse visit Kaylynn Walker HR INTERN 09/20/2013 Voided Heena Dumont MD 09/14/2013 Office visit Kaylynn Walker HR INTERN 09/05/2013 Office visit Sundeep Russell HR INTERN 09/04/2013 Nurse visit Kaylynn Walker HR INTERN 08/31/2013 Office visit Kaylynn Walker HR INTERN 08/23/2013 Office visit Heena Dumont MD 08/10/2013 Office visit Kaylynn Walker HR INTERN 07/25/2013 Office visit Kaylynn Walker HR INTERN 07/18/2013 Office visit Kaylynn Walker HR INTERN 07/12/2013 Office visit Kaylynn Walker HR INTERN 06/28/2013 Nurse visit Kaylynn Walker HR INTERN 06/14/2013 Nurse visit Kaylynn Walker HR INTERN 06/08/2013 Nurse visit Kaylynn Walker HR INTERN 05/31/2013 Nurse visit Chadd Norris DO 05/18/2013 Office visit Terese Davidson MD 05/16/2013 Office visit Kaylynn Walker HR INTERN 05/09/2013 Office visit Kaylynn Mendez HR INTERN 04/29/2013 [facility] Eliseo Hoskins MD 04/25/2013 Nurse visit Kaylynn Walker HR INTERN 04/17/2013 Office visit Kaylynn Walker HR INTERN 04/03/2013 Nurse visit Kaylynn Walker HR INTERN 04/03/2013 Office visit Terese Davidson MD 03/28/2013 Office visit Sundeep Russell HR INTERN 03/21/2013 Office visit Kaylynn Mendez HR INTERN 03/20/2013 Office visit Terese Davidson MD 03/14/2013 Nurse visit Kaylynn Mendez HR INTERN 03/05/2013 Nurse visit Kaylynn Mendez HR INTERN 02/19/2013 Office visit Terese Davidson MD 02/16/2013 Nurse visit Kaylynn Mendez HR INTERN 02/09/2013 Office visit Sundeep Russell HR INTERN 02/08/2013 Nurse visit Kaylynn Walker HR INTERN 02/01/2013 Nurse visit Kaylynn Walker HR INTERN 01/26/2013 Nurse visit Sabrina Mendez TRIMMER LOADER 01/25/2013 Office visit Kaylynn Walker HR INTERN 01/22/2013 Office visit Yoan Castaneda MD 01/18/2013 Nurse visit Kaylynn Walker HR INTERN 01/11/2013 Nurse visit Kaylynn Walker HR INTERN 01/05/2013 Nurse visit Kaylynn Walker HR INTERN 12/29/2012 Office visit Kaylynn Walker HR INTERN 11/27/2012 Office visit Kaylynn Walker HR INTERN 11/08/2012 Office visit Odell Tierney MD 11/08/2012 Voided Odell Tierney MD 11/07/2012 Office visit Kaylynn Mendez HR INTERN 10/31/2012 Hospital John Hoskins MD 10/31/2012 Office visit Kaylynn Walker HR INTERN 10/19/2012 Office visit Genoveva Ayala HR INTERN 10/10/2012 Office visit Kaylynn Walker HR INTERN 10/03/2012 Office visit Kaylynn Walker HR INTERN 09/26/2012 Office visit Kaylynn Walker HR INTERN 09/06/2012 Office visit Kaylynn Andrea HR INTERN 09/06/2012 Office visit Odell Tierney MD 08/31/2012 Voided Kaylynn Andrea HR INTERN 07/28/2012 Office visit Kaylynn Walker HR INTERN 07/27/2012 Office visit David Joyner DO 07/20/2012 [facility] David Joyner DO 07/13/2012 [facility] David Jonyer DO 07/11/2012 Office visit Kaylynn Andrea HR INTERN 06/27/2012 [facility] Odell Tierney MD 06/21/2012 Office visit David Joyner DO 06/21/2012 Office visit Odell Tierney MD 06/20/2012 Office visit Brittni Yanez HR INTERN 06/06/2012 Office visit Odell Tierney MD 05/03/2012 Office visit Kaylynn Mendez HR INTERN 04/28/2012 Office visit Brittni Yanez HR INTERN 04/11/2012 Office visit Kaylynn Mendez HR INTERN 04/06/2012 Hospital John Hoskins MD 03/30/2012 Office visit Kaylynn Mendez HR INTERN 03/15/2012 Office visit Kaylynn Andrea HR INTERN 03/15/2012 Office visit Odell Tierney MD 02/09/2012 Office visit Kaylynn Mendez HR INTERN 12/23/2011 Office visit Kaylynn Walker HR INTERN 11/02/2011 Office visit Kaylynn Walker HR INTERN 10/14/2011 Office visit Kaylynn Walker HR INTERN 09/27/2011 Office visit Kaylynn Walker HR INTERN 08/19/2011 Hospital John Hoskins MD 08/18/2011 Hospital John Hoskins MD 08/18/2011 Office visit Kaylynn Walker HR INTERN 08/02/2011 Office visit Kaylynn Walker HR INTERN 07/08/2011 Office visit Kaylynn Walker HR INTERN 07/05/2011 Office visit Odell Tierney MD 06/15/2011 Office visit Kaylynn Mendez HR INTERN 05/14/2011 Office visit Kaylynn Mendez HR INTERN 05/11/2011 Office visit Odell Tierney MD 04/28/2011 Office visit Kaylynn Mendez HR INTERN 03/02/2011 Office visit Chadd Norris DO 02/17/2011 [...] Surgery Yoan Castaneda MD 01/29/2010 Office visit Hlilary RITCHIE 12/23/2009 Surgery Yoan Castaneda MD 12/16/2009 Surgery Yoan Castaneda MD 12/10/2009 Office visit Odell Tierney MD 11/26/2009 Office visit Yoan Castaneda MD 11/17/2009 Office visit Odell Tierney MD 11/10/2009 Office visit Chadd Norris DO
--- OUTSIDE RECORDS SUMMARY | 2018-05-09 20:11 | XMS REPORT ---
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 vtvlxwlt-xmyhdbgib-UM 3.5-10,000-1 mg/mL-unit/mL-% otic drops,suspension 201607/23/2016 instill 4 [...] Reviewed 04/28/2011 12:00 AM Decadron 1 mg ND#[id number] (Jr) Reviewed 04/28/2011 12:00 AM Depo-Medrol 80 mg NDC#[id number]-Zlaaxwwf Reviewed 09/02/2015 12:00 AM Toradol 60 Mg NDC#9434-8789-97 Reviewed 09/02/2015 12:00 AM Phenergan, Up to 50 Mg RHC Medicaid Reviewed 09/16/2015 12:00 AM Toradol 60 Mg NDC#8833-3502-84 Reviewed 09/16/2015 12:00 AM Phenergan Up to 50 mg RHC Medicare Reviewed 05/11/2011 12:00 AM N BLOCK INJ OCCIPITAL Reviewed 05/11/2011 12:00 AM Kenalog Lr-[address]-20 ANNA Reviewed 11/13/2015 12:00 AM ASSAY OF [...] INJ SC/IM Reviewed 07/08/2011 12:00 AM Toradol,15mg [facility]#[id number], [place] Reviewed 07/08/2011 12:00 AM Phenergan 50 Mg Im [facility] 4950-7253-42 [place] Reviewed 01/21/2016 12:00 AM ECG MONIT/REPRT UP TO 48 HRS Returned 08/02/2011 12:00 AM THER/PROPH/DIAG INJ SC/IM Reviewed 08/02/2011 12:00 AM Decadron 1 mg [facility]#[id number] (Jr) Reviewed 08/02/2011 12:00 AM Depo-Medrol 80 mg [facility]#[id number]-Dfgrbqak Reviewed 03/05/2016 12:00 AM COMPLETE CBC W/AUTO DIFF WBC Reviewed 03/05/2016 12:00 AM STREP A ASSAY W/OPTIC Reviewed 03/05/2016 12:00 AM C-REACTIVE PROTEIN Reviewed 03/18/2016 12:00 AM [facility] MEDICARE - flu vaccine administration Reviewed [...] Reviewed 09/27/2011 12:00 AM Depo-Medrol 80 mg ND#[id number]-Kcdvogxt Reviewed 09/27/2011 12:00 AM Depo-Medrol 40 mg ND#[id number] Reviewed 07/06/2016 12:00 AM CHEST X-RAY 4/> [...] Reviewed 12/23/2011 12:00 AM Decadron 1 mg [facility]#[id number] (Jr) Reviewed 12/23/2011 12:00 AM Depo-Medrol 80 mg [facility]#[id number]-Shwjmjhq Reviewed 11/02/2016 11:45 AM URINALYSIS AUTO W/O [...] Reviewed 02/09/2012 12:00 AM Decadron 1 mg ND#[id number] (Jr) Reviewed 02/09/2012 12:00 AM Depo-Medrol 80 mg NDC#[id number]-Wnbhugyf Reviewed 02/21/2017 12:00 AM CULTURE OTHR SPECIMN AEROBIC Returned 02/21/2017 12:00 AM INFLUENZA ASSAY W/OPTIC Returned 02/23/2017 12:00 AM COMPLETE CBC W/AUTO DIFF WBC Reviewed 02/23/2017 12:00 AM X-RAY EXAM OF KNEE 3 Returned 03/15/2012 12:00 AM N BLOCK INJ OCCIPITAL Reviewed 03/15/2012 12:00 AM Kenalog Vy-[address]-20 ANNA Reviewed 04/11/2012 12:00 AM COMPLETE CBC [...] 12:00 AM Decadron, Per 1 Mg ND# [address]-06 Reviewed 06/20/2012 12:00 AM Depo-Medrol, Per 80 Mg ND#2178-1041-35 Reviewed 09/06/2012 12:00 AM N BLOCK INJ OCCIPITAL Reviewed 09/06/2012 12:00 AM Kenalog Zw-[address]-20 ANNA Reviewed 09/06/2012 12:00 AM X-RAY EXAM RIBS UNI 2 VIEWS Reviewed 09/26/2012 12:00 AM THER/PROPH/DIAG INJ SC/IM Reviewed 09/26/2012 12:00 AM Decadron, Per 1 Mg NDC# [address]-07 Reviewed 09/26/2012 12:00 AM Depo-Medrol, Per 80 Mg [facility]#9864-2895-61 Reviewed 10/03/2012 12:00 AM URINALYSIS AUTO W/O SCOPE Reviewed 10/03/2012 12:00 AM THER/PROPH/DIAG INJ SC/IM Reviewed 10/03/2012 12:00 AM Toradol 60 Mg [facility]#6750-2433-44 Reviewed 10/03/2012 12:00 AM Phenergan, 25Mg [facility]#4428-3490-49 Reviewed 10/19/2012 12:00 AM N BLOCK INJ OCCIPITAL Reviewed 10/19/2012 12:00 AM Kenalog, Per 10 Mg [facility]#5915-5900-25 Reviewed 10/19/2012 12:00 AM Toradol 30 Mg [facility]#4026-5577-89 Reviewed 10/19/2012 12:00 AM THER/PROPH/DIAG INJ SC/IM Reviewed 10/31/2012 12:00 AM COMPLETE CBC W/AUTO DIFF WBC Reviewed 10/31/2012 12:00 AM COMPREHEN METABOLIC PANEL Reviewed 10/31/2012 12:00 AM LIPID PANEL Reviewed 10/31/2012 12:00 AM ELECTROCARDIOGRAM COMPLETE Reviewed 11/03/2012 12:[address] THORAX W/O & W/DYE Reviewed 11/08/2012 12:00 AM N BLOCK INJ OCCIPITAL Reviewed 11/08/2012 12:00 AM Kenalog Gd-[address]-20 ANNA Reviewed 11/27/2012 12:00 AM COMPLETE CBC [...] 01/25/2013 12:00 AM Decadron, Per 1 Mg [facility]# [address]-39 Reviewed 01/25/2013 12:00 AM Depo-Medrol, Per 80 Mg [facility]#9380-5131-88 Reviewed 01/26/2013 12:00 AM IMMUNOTHERAPY ONE INJECTION [...] 05/16/2013 12:00 AM Decadron, Per 1 Mg [facility]# [address]-08 Reviewed 05/16/2013 12:00 AM Depo-Medrol, Per 80 Mg [facility]#9998-3743-38 Reviewed 05/31/2013 12:00 AM IMMUNOTHERAPY INJECTIONS Reviewed 06/08/2013 12:00 AM IMMUNOTHERAPY INJECTIONS Reviewed 06/14/2013 12:00 AM IMMUNOTHERAPY INJECTIONS Reviewed 06/28/2013 12:00 AM IMMUNOTHERAPY INJECTIONS Reviewed 07/12/2013 12:00 AM X-RAY EXAM RIBS UNI 2 VIEWS Reviewed 07/18/2013 12:00 AM Toradol 60 Mg [facility]#9767-2399-70 Reviewed 07/18/2013 12:00 AM THER/PROPH/DIAG INJ SC/IM Reviewed 08/23/2013 12:00 AM COMPLETE CBC W/AUTO DIFF WBC Reviewed 08/23/2013 12:00 AM COMPREHEN METABOLIC PANEL Reviewed 08/23/2013 12:00 AM LIPID PANEL Reviewed 08/31/2013 12:00 AM X-RAY EXAM OF LOWER LEG Reviewed 09/04/2013 12:00 AM IMMUNOTHERAPY INJECTIONS Reviewed 09/14/2013 12:00 AM THER/PROPH/DIAG INJ SC/IM Reviewed 09/14/2013 12:00 AM Decadron, Per 1 Mg [facility]# [address]-33 Reviewed 09/14/2013 12:00 AM Depo-Medrol, Per 80 Mg [facility]#1794-9308-07 Reviewed 09/20/2013 12:00 AM IMMUNOTHERAPY INJECTIONS Reviewed [...] INJ OCCIPITAL Reviewed 12/10/2009 12:00 AM Kenalog Ne-[address]-20 ANNA Reviewed 12/16/2009 12:00 AM HIV-1ANTIBODY Reviewed 12/16/2009 12:00 AM COMPLETE CBC W/AUTO DIFF WBC Reviewed 12/16/2009 12:00 AM METABOLIC PANEL TOTAL CA Reviewed 12/16/2009 12:00 AM Type and screen Reviewed 12/16/2009 12:00 AM PROTHROMBIN TIME Reviewed 12/16/2009 12:00 AM THROMBOPLASTIN TIME PARTIAL Reviewed 03/18/2010 12:00 AM DRAIN/INJ JOINT/BURSA W/O US Reviewed 03/18/2010 12:00 AM Kenalog Zv-[address]-20 ANNA Reviewed 11/21/2013 12:00 AM RADEX HAND MINIMUM 3 VIEWS Reviewed 06/03/2010 12:00 AM INJ TRIGGER POINT 1/2 MUSCL Reviewed 06/03/2010 12:00 AM Kenalog per 10Mg Im-[facility]#[address]-79(Niall) Reviewed 12/05/2013 12:00 AM COMPLETE CBC W/AUTO [...] 07/23/2010 12:00 AM Kenalog per 10Mg Im-[facility]#[address]-76(Niall) Reviewed 2014 12:00 AM COMPLETE CBC W/AUTO [...] INJ OCCIPITAL Reviewed 10/01/2010 12:00 AM Kenalog Az-[address]-20 ANNA Reviewed 07/25/2014 12:00 AM THER/PROPH/DIAG INJ [...] 4.68 HGB 14.30 g/dLHCT 41.30 %MCV 88.0 [facility] 30.60 pgHC 34.60 g/dLRDW SD 44 RDW [...] 141 Influenza 04/24/2014 sanofi pasteur PMC Fluzone [id number] Intramuscular Left Upper Arm 02/27/2014 01/15/2014 141 Influenza 02/13/2015 sanofi pasteur PMC Fluzone [id number] Intramuscular Left Deltoid 02/13/2015 01/03/2015 140 Tdap 06/06/2015 [employer] Gamerine SKB BOOSTRIX [id number] Intramuscular Left Deltoid 06/06/2015 07/23/2014 115 Influenza 03/18/2016 sanofi pasteur PMC Fluzone [id number] Intramuscular Left Deltoid 03/17/2016 01/03/2015 141 History [...] 2:12PM Sore throat Apr 20 2017 2:12PM Payers Insurance Name Company Name Plan Name Plan Number Policy Number Policy Group Number Start Date Medicare [facility] Medicare [facility] [id number] N/A [facility] RHC Comm [id number] N/A Medicare Part A Medicare - Lab/Xray [id number] N/A Medicare Part B Medicare Of [place] [id number] Monday, February 28, 2000 [place] [employer] [place] [employer] [place] [id number] Tuesday, November 10, 2009 Medicare Part A Medicare Part A [id number] N/A [place] [employer] - [place] [employer] - [place] [id number] [facility] Plan of [id number] Wednesday, May 30, 2012 History of Encounters Visit Date Visit Type Provider 04/20/2017 Office visit 04/20/2017 Office visit 04/20/2017 Office visit 04/20/2017 Office visit Heena Dumont MD 03/22/2017 Office visit Heena Dumont MD 03/05/2017 Office visit Lena Chaves EXPORT COORDINATOR 02/23/2017 Office visit Symone Marie EXPORT COORDINATOR 02/21/2017 Office visit Heena Dumont MD 02/15/2017 Office visit Heena Dumont MD 02/02/2017 Office visit Heena Dumont MD 01/07/2017 Office visit Riccardo Cardoza MD 01/03/2017 Office visit Heena Dumont MD 12/15/2016 Office visit Kaylynn Mendez EXPORT COORDINATOR 12/02/2016 Office visit Heena Dumont MD 11/23/2016 [facility] Eliseo Hoskins MD 11/23/2016 Office visit Kaylynn Mendez EXPORT COORDINATOR 11/17/2016 Office visit Kaylynn Mendez EXPORT COORDINATOR 11/05/2016 Office visit Riccardo Cardoza MD 11/02/2016 Office visit Heena Dumont MD 10/06/2016 Office visit Kaylynn Mendez EXPORT COORDINATOR 09/22/2016 Office visit Heena Dumont MD 09/09/2016 Office visit Kaylynn Mendez EXPORT COORDINATOR 08/27/2016 Office visit Riccardo Cardoza MD 08/26/2016 Office visit Heena Dumont MD 07/09/2016 Office visit Riccardo Cardoza MD 07/06/2016 Office visit Heena Dumont MD 06/18/2016 Office visit Kaylynn Mendez EXPORT COORDINATOR 06/07/2016 Office visit Sundeep Russell EXPORT COORDINATOR 06/04/2016 Office visit Heena Dumont MD 05/13/2016 Office visit Heena Dumont MD 05/03/2016 Office visit Heena Dumont MD 04/26/2016 Office visit Kaylynn Mendez EXPORT COORDINATOR 04/14/2016 Office visit Heena Dumont MD 04/13/2016 Office visit Kaylynn Mendez EXPORT COORDINATOR 04/02/2016 Office visit Lena El EXPORT COORDINATOR 04/02/2016 Office visit Heena Dumont MD 03/26/2016 Office visit Yesica Falcon EXPORT COORDINATOR 03/17/2016 Office visit Heena Dumont MD 03/05/2016 Office visit Kaylynn Mendez EXPORT COORDINATOR 02/16/2016 Office visit Heena Dumont MD 02/14/2016 Office visit Na Jones EXPORT COORDINATOR 01/16/2016 Office visit Heena Dumont MD 12/16/2015 Office visit Heena Dumont MD 11/24/2015 Office visit Kaylynn Mendez EXPORT COORDINATOR 11/18/2015 Office visit Heena Dumont MD 11/03/2015 Office visit Sundeep Russell EXPORT COORDINATOR 10/20/2015 Office visit Kaylynn Mendez EXPORT COORDINATOR 09/23/2015 Office visit Kaylynn Mendez EXPORT COORDINATOR 09/16/[address] Pepe Figueroa MD 09/02/2015 Office visit Kaylynn Mendez EXPORT COORDINATOR 09/01/2015 Office visit Kaylynn Mendez EXPORT COORDINATOR 07/30/2015 Office visit Heena Dumont MD 07/15/2015 Office visit Kaylynn Mendez EXPORT COORDINATOR 07/04/2015 Office visit Heena Dumont MD 06/06/2015 Office visit Heena Dumont MD 06/06/2015 Office visit Kaylynn Mendez EXPORT COORDINATOR 06/02/2015 Office visit Kaylynn Mendez EXPORT COORDINATOR 05/26/2015 Office visit Kaylynn Mendez EXPORT COORDINATOR 05/20/2015 Office visit Kaylynn Mendez EXPORT COORDINATOR 05/08/2015 Office visit Heena Dumont MD 05/06/2015 Office visit Kaylynn Mendez EXPORT COORDINATOR 04/29/2015 Office visit Kaylynn Mendez EXPORT COORDINATOR 03/27/2015 Voided Brittni Yanez EXPORT COORDINATOR 03/21/2015 Office visit Heena Dumont MD 03/12/2015 Office visit Kaylynn Mendez EXPORT COORDINATOR 02/26/2015 Office visit Brittni Yanez EXPORT COORDINATOR 02/13/2015 Office visit Heena Dumont MD 01/15/2015 Office visit Brittni Yanez EXPORT COORDINATOR 01/13/2015 Office visit Heena Dumont MD 01/08/[address] Carol Fowler MD 01/01/2015 Office visit Brittni Yanez EXPORT COORDINATOR 12/13/2014 Office visit Heena Dumont MD 11/27/2014 Office visit Kaylynn Mendez EXPORT COORDINATOR 11/14/2014 Office visit Heena Dumont MD 10/18/2014 Office visit Heena Dumont MD 10/17/2014 [facility] Eliseo Hoskins MD 10/09/2014 Office visit Heena Dumont MD 09/25/2014 Office visit Heena Dumont MD 09/17/2014 Office visit Kaylynn Mendez EXPORT COORDINATOR 09/04/2014 Office visit Heena Dumont MD 08/28/2014 Office visit Kaylynn Mendez EXPORT COORDINATOR 08/23/2014 [facility] Eliseo Hoskins MD 08/01/2014 Office visit Kaylynn Mendez EXPORT COORDINATOR 07/29/2014 Office visit Heena Dumont MD 07/25/2014 Nurse visit Heena Dumont MD 07/17/2014 Office visit Kaylynn Mendez EXPORT COORDINATOR 07/11/2014 Office visit Heena Dumont MD 07/01/2014 Office visit Heena uDmont MD 06/25/2014 Office visit Kaylynn Mendez EXPORT COORDINATOR 06/12/2014 Office visit Kaylynn Mendez EXPORT COORDINATOR 06/06/2014 Office visit Kaylynn Mendez EXPORT COORDINATOR 05/27/2014 Office visit Heena Dumont MD 04/20/2014 Office visit Yesica Falcon EXPORT COORDINATOR 03/29/2014 Office visit Na Jones EXPORT COORDINATOR 03/15/2014 Office visit Heena Dumont MD 2014 Office visit Heena Dumont MD 2014 [facility] Eliseo Hoskins MD 02/27/2014 Nurse visit Heena Dumont MD 02/13/2014 Office visit Lena El EXPORT COORDINATOR 02/07/2014 Office visit Heena Dumont MD 02/03/2014 Office visit Na Jones EXPORT COORDINATOR 01/30/2014 Office visit Kaylynn Mendez EXPORT COORDINATOR 01/24/2014 Office visit Sundeep Russell EXPORT COORDINATOR 01/16/2014 Office visit Kaylynn Mendez EXPORT COORDINATOR 01/10/2014 Nurse visit Kaylynn Mendez EXPORT COORDINATOR 01/08/2014 Office visit Kaylynn Mendez EXPORT COORDINATOR 12/05/2013 Office visit Kaylynn Mendez EXPORT COORDINATOR 11/21/2013 Office visit Kaylynn Mendez EXPORT COORDINATOR 10/23/2013 Office visit Brittni Yanez EXPORT COORDINATOR 10/17/2013 Nurse visit Heena Dumont MD 10/12/2013 Office visit Kaylynn Mendez EXPORT COORDINATOR 10/02/2013 Office visit Heena Dumont MD 09/20/2013 Nurse visit Kaylynn Walker EXPORT COORDINATOR 09/20/2013 Voided Heena Dumont MD 09/14/2013 Office visit Kaylynn Walker EXPORT COORDINATOR 09/05/2013 Office visit Sundeep Russell EXPORT COORDINATOR 09/04/2013 Nurse visit Kaylynn Walker EXPORT COORDINATOR 08/31/2013 Office visit Kaylynn Walker EXPORT COORDINATOR 08/23/2013 Office visit Heena Dumont MD 08/10/2013 Office visit Kaylynn Walker EXPORT COORDINATOR 07/25/2013 Office visit Kaylynn Walker EXPORT COORDINATOR 07/18/2013 Office visit Kaylynn Walker EXPORT COORDINATOR 07/12/2013 Office visit Kaylynn Walker EXPORT COORDINATOR 06/28/2013 Nurse visit Kaylynn Walker EXPORT COORDINATOR 06/14/2013 Nurse visit Kaylynn Walker EXPORT COORDINATOR 06/08/2013 Nurse visit Kaylynn Walker EXPORT COORDINATOR 05/31/2013 Nurse visit Chadd Norris DO 05/18/2013 Office visit Terese Davidson MD 05/16/2013 Office visit Kaylynn Walker EXPORT COORDINATOR 05/09/2013 Office visit Kaylynn Mendez EXPORT COORDINATOR 04/29/2013 [facility] Eliseo Hoskins MD 04/25/2013 Nurse visit Kaylynn Walker EXPORT COORDINATOR 04/17/2013 Office visit Kaylynn Walker EXPORT COORDINATOR 04/03/2013 Nurse visit Kaylynn Walker EXPORT COORDINATOR 04/03/2013 Office visit Terese Davidson MD 03/28/2013 Office visit Sundeep Russell EXPORT COORDINATOR 03/21/2013 Office visit Kaylynn Mendez EXPORT COORDINATOR 03/20/2013 Office visit Terese Davidson MD 03/14/2013 Nurse visit Kaylynn Walker EXPORT COORDINATOR 03/05/2013 Nurse visit Kaylynn Walker EXPORT COORDINATOR 02/19/2013 Office visit Terese Davidson MD 02/16/2013 Nurse visit Kaylynn Mendez EXPORT COORDINATOR 02/09/2013 Office visit Sundeep Russell EXPORT COORDINATOR 02/08/2013 Nurse visit Kaylynn Walker EXPORT COORDINATOR 02/01/2013 Nurse visit Kaylynn Walker EXPORT COORDINATOR 01/26/2013 Nurse visit Sabrina Andrea YARD JACKER 01/25/2013 Office visit Kaylynn Walker EXPORT COORDINATOR 01/22/2013 Office visit Yoan Castaneda MD 01/18/2013 Nurse visit Kaylynn Walker EXPORT COORDINATOR 01/11/2013 Nurse visit Kaylynn Walker EXPORT COORDINATOR 01/05/2013 Nurse visit Kaylynn Walker EXPORT COORDINATOR 12/29/2012 Office visit Kaylynn Walker EXPORT COORDINATOR 11/27/2012 Office visit Kaylynn Mendez EXPORT COORDINATOR 11/08/2012 Office visit Odell Tierney MD 11/08/2012 Voided Odell Tierney MD 11/07/2012 Office visit Kaylynn Mendez EXPORT COORDINATOR 10/31/2012 Hospital John Hoskins MD 10/31/2012 Office visit Kaylynn Mendez EXPORT COORDINATOR 10/19/2012 Office visit Genoveva Ayala EXPORT COORDINATOR 10/10/2012 Office visit Kaylynn Walker EXPORT COORDINATOR 10/03/2012 Office visit Kaylynn Walker EXPORT COORDINATOR 09/26/2012 Office visit Kaylynn Walker EXPORT COORDINATOR 09/06/2012 Office visit Kaylynn Andrea EXPORT COORDINATOR 09/06/2012 Office visit Odell Tierney MD 08/31/2012 Voided Kaylynn Mendez EXPORT COORDINATOR 07/28/2012 Office visit Kaylynn Mendez EXPORT COORDINATOR 07/27/2012 Office visit David Joyner DO 07/20/2012 [facility] David Sheriffuman DO 07/13/2012 Hospital David Bouman DO 07/11/2012 Office visit Kaylynn Mendez EXPORT COORDINATOR 06/27/2012 [facility] Odell Tierney MD 06/21/2012 Office visit David Joyner DO 06/21/2012 Office visit Odell Tierney MD 06/20/2012 Office visit Brittni Yanez EXPORT COORDINATOR 06/06/2012 Office visit Odell Tierney MD 05/03/2012 Office visit Kaylynn Mendez EXPORT COORDINATOR 04/28/2012 Office visit Brittni Yanez EXPORT COORDINATOR 04/11/2012 Office visit Kaylynn Mendez EXPORT COORDINATOR 04/06/2012 Hospital John Hoskins MD 03/30/2012 Office visit Kaylynn Mendez EXPORT COORDINATOR 03/15/2012 Office visit Kaylynn Mendez EXPORT COORDINATOR 03/15/2012 Office visit Odell Tierney MD 02/09/2012 Office visit Kaylynn Mendez EXPORT COORDINATOR 12/23/2011 Office visit Kaylynn Mendez EXPORT COORDINATOR 11/02/2011 Office visit Kaylynn Mendez EXPORT COORDINATOR 10/14/2011 Office visit Kaylynn Walker EXPORT COORDINATOR 09/27/2011 Office visit Kaylynn Mendez EXPORT COORDINATOR 08/19/2011 Hospital John Hoskins MD 08/18/2011 Hospital John Hoskins MD 08/18/2011 Office visit Kaylynn Mendez EXPORT COORDINATOR 08/02/2011 Office visit Kaylynn Walker EXPORT COORDINATOR 07/08/2011 Office visit Kaylynn Mendez EXPORT COORDINATOR 07/05/2011 Office visit Odell Tierney MD 06/15/2011 Office visit Kaylynn Mendez EXPORT COORDINATOR 05/14/2011 Office visit Kaylynn Mendez EXPORT COORDINATOR 05/11/2011 Office visit Odell Tierney MD 04/28/2011 Office visit Kaylynn Mendez EXPORT COORDINATOR 03/02/2011 Office visit Chadd Norris DO 02/17/2011 [...] Yoan Castaneda MD 01/29/2010 Office visit Hillary RTICHIE 12/23/2009 Surgery Yoan Castaneda MD 12/16/2009 Surgery Yoan Castaneda MD 12/10/2009 Office visit Odell Tierney MD 11/26/2009 Office visit Yoan Castaneda MD 11/17/2009 Office visit Odell Tierney MD 11/10/2009 Office visit Chadd Norris DO
--- OUTSIDE RECORDS SUMMARY | 2018-05-09 20:15 | XMS REPORT ---
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 [employer]ila Lancets 33 gauge miscellaneous misc 01/21/2016 use as directed [employer] Verio miscellaneous strip 01/21/2016 07/19/2016 Test 2x daily, Dx: E11.9 TEST STRIPS Name Start Date Expiration Date SIG Comments [...] 08/27/2014 use as directed for 99 days Hunter 5-325 mg oral tablet 06/17/2014 06/27/2014 take [...] a day as needed for 30 days iyleovek-urwobuuzw-XR 3.5-10,000-1 mg/mL-unit/mL-% otic drops,suspension 201401/08/2015 instill 4 [...] Reviewed 04/28/2011 12:00 AM Decadron 1 mg NDC#[id number] (Jr) Reviewed 04/28/2011 12:00 AM Depo-Medrol 80 mg NDC#[id number]-Wgvplids Reviewed 09/02/2015 12:00 AM Toradol 60 Mg NDC#0720-8507-84 Reviewed 09/02/2015 12:00 AM Phenergan, Up to 50 Mg RHC Medicaid Reviewed 09/16/2015 12:00 AM Toradol 60 Mg NDC#2874-6891-09 Reviewed 09/16/2015 12:00 AM Phenergan Up to 50 mg RHC Medicare Reviewed 05/11/2011 12:00 AM N BLOCK INJ OCCIPITAL Reviewed 05/11/2011 12:00 AM Kenalog Bi-[address]-20 ANNA Reviewed 11/13/2015 12:00 AM ASSAY OF [...] INJ SC/IM Reviewed 07/08/2011 12:00 AM Toradol,15mg ND#[id number], Brunildaer Reviewed 07/08/2011 12:00 AM Phenergan 50 Mg Im [facility] 0493-9752-12 [facility] Reviewed 08/02/2011 12:00 AM THER/PROPH/DIAG INJ SC/IM Reviewed 08/02/2011 12:00 AM Decadron 1 mg ND#[id number] (Jr) Reviewed 08/02/2011 12:00 AM Depo-Medrol 80 mg NDC#[id number]-Gtbgbqse Reviewed 09/27/2011 12:00 AM THER/PROPH/DIAG INJ SC/IM Reviewed 09/27/2011 12:00 AM Depo-Medrol 80 mg ND#[id number]-Lwngemrs Reviewed 10/14/2011 12:00 AM X-RAY EXAM OF ABDOMEN Returned 10/14/2011 12:00 AM URINALYSIS AUTO W/O SCOPE Reviewed 12/23/2011 12:00 AM THER/PROPH/DIAG INJ SC/IM Reviewed 12/23/2011 12:00 AM Decadron 1 mg NDC#[id number] (Jr) Reviewed 12/23/2011 12:00 AM Depo-Medrol 80 mg NDC#[id number]-Shtylihq Reviewed 02/09/2012 12:00 AM THER/PROPH/DIAG INJ SC/IM Reviewed 02/09/2012 12:00 AM Decadron 1 mg ND#[id number] (Jr) Reviewed 02/09/2012 12:00 AM Depo-Medrol 80 mg ND#[id number]-Vfaihqkd Reviewed 03/15/2012 12:00 AM N BLOCK INJ OCCIPITAL Reviewed 03/15/2012 12:00 AM Kenalog Zs-[address]-20 ANNA Reviewed 04/11/2012 12:00 AM COMPLETE CBC W/AUTO DIFF WBC Returned 04/11/2012 12:00 AM COMPREHEN METABOLIC PANEL Returned 04/11/2012 12:00 AM LIPID PANEL Returned 04/11/2012 12:00 AM ASSAY THYROID STIM HORMONE Returned 06/20/2012 12:00 AM THER/PROPH/DIAG INJ SC/IM Reviewed 06/20/2012 12:00 AM Decadron, Per 1 Mg ND# [address]-46 Reviewed 06/20/2012 12:00 AM Depo-Medrol, Per 80 Mg ND#6881-3942-06 Reviewed 09/06/2012 12:00 AM N BLOCK INJ OCCIPITAL Reviewed 09/06/2012 12:00 AM Kenalog Lc-[address]-20 ANNA Reviewed 09/06/2012 12:00 AM X-RAY EXAM RIBS UNI 2 VIEWS Returned 09/26/2012 12:00 AM THER/PROPH/DIAG INJ SC/IM Reviewed 09/26/2012 12:00 AM Decadron, Per 1 Mg ND# [address]-55 Reviewed 09/26/2012 12:00 AM Depo-Medrol, Per 80 Mg ND#3117-2316-13 Reviewed 10/03/2012 12:00 AM URINALYSIS AUTO W/O SCOPE Reviewed 10/03/2012 12:00 AM THER/PROPH/DIAG INJ SC/IM Reviewed 10/03/2012 12:00 AM Toradol 60 Mg ND#4434-5137-34 Reviewed 10/03/2012 12:00 AM Phenergan, 25Mg ND#8773-9457-12 Reviewed 10/19/2012 12:00 AM N BLOCK INJ OCCIPITAL Reviewed 10/19/2012 12:00 AM Kenalog, Per 10 Mg ND#6380-7591-24 Reviewed 10/19/2012 12:00 AM Toradol 30 Mg ND#6404-5566-37 Reviewed 10/19/2012 12:00 AM THER/PROPH/DIAG INJ SC/IM Reviewed 10/31/2012 12:00 AM COMPLETE CBC W/AUTO DIFF WBC Returned 10/31/2012 12:00 AM COMPREHEN METABOLIC PANEL Returned 10/31/2012 12:00 AM LIPID PANEL Returned 11/03/2012 12:[address] THORAX W/O & W/DYE Returned 11/08/2012 12:00 AM N BLOCK INJ OCCIPITAL Reviewed 11/08/2012 12:00 AM Kenalog Xw-[address]-20 ANNA Reviewed 11/27/2012 12:00 AM COMPLETE CBC [...] Per 1 Mg [facility]# [address]-30 Reviewed 01/25/2013 12:00 AM Depo-Medrol, Per 80 Mg [facility]#9204-2092-96 Reviewed 01/26/2013 12:00 AM IMMUNOTHERAPY INJECTIONS Returned [...] Per 1 Mg [facility]# [address]-17 Reviewed 05/16/2013 12:00 AM Depo-Medrol, Per 80 Mg [facility]#7844-7883-15 Reviewed 05/31/2013 12:00 AM IMMUNOTHERAPY INJECTIONS Reviewed 06/08/2013 12:00 AM IMMUNOTHERAPY INJECTIONS Reviewed 06/14/2013 12:00 AM IMMUNOTHERAPY INJECTIONS Reviewed 06/28/2013 12:00 AM IMMUNOTHERAPY INJECTIONS Reviewed 07/12/2013 12:00 AM X-RAY EXAM RIBS UNI 2 VIEWS Returned 07/18/2013 12:00 AM Toradol 60 Mg [facility]#5505-7780-01 Reviewed 07/18/2013 12:00 AM THER/PROPH/DIAG INJ SC/IM Reviewed 08/23/2013 12:00 AM COMPLETE CBC W/AUTO DIFF WBC Reviewed 08/23/2013 12:00 AM COMPREHEN METABOLIC PANEL Reviewed 08/23/2013 12:00 AM LIPID PANEL Reviewed 08/31/2013 12:00 AM X-RAY EXAM OF LOWER LEG Returned 09/04/2013 12:00 AM IMMUNOTHERAPY INJECTIONS Reviewed 09/14/2013 12:00 AM THER/PROPH/DIAG INJ SC/IM Reviewed 09/14/2013 12:00 AM Decadron, Per 1 Mg [facility]# [address]-08 Reviewed 09/14/2013 12:00 AM Depo-Medrol, Per 80 Mg [facility]#0966-4267-76 Reviewed 09/20/2013 12:00 AM IMMUNOTHERAPY INJECTIONS Reviewed [...] INJ OCCIPITAL Reviewed 12/10/2009 12:00 AM Kenalog Zj-[address]-20 ANNA Reviewed 12/16/2009 12:00 AM HIV-1ANTIBODY Reviewed 12/16/2009 12:00 AM COMPLETE CBC W/AUTO DIFF WBC Reviewed 12/16/2009 12:00 AM METABOLIC PANEL TOTAL CA Reviewed 12/16/2009 12:00 AM Type and screen Reviewed 12/16/2009 12:00 AM PROTHROMBIN TIME Reviewed 12/16/2009 12:00 AM THROMBOPLASTIN TIME PARTIAL Reviewed 03/18/2010 12:00 AM DRAIN/INJ JOINT/BURSA W/O US Reviewed 03/18/2010 12:00 AM Kenalog Ht-[address]-20 ANNA Reviewed 11/21/2013 12:00 AM RADEX HAND MINIMUM 3 VIEWS Returned 06/03/2010 12:00 AM INJ TRIGGER POINT 1/2 MUSCL Reviewed 06/03/2010 12:00 AM Kenalog per 10Mg -[facility]#[address]-37(Niall) Reviewed 12/05/2013 12:00 AM COMPLETE CBC W/AUTO [...] Reviewed 07/23/2010 12:00 AM Kenalog per 10Mg Im-[facility]#[address]-54(Niall) Reviewed 2014 12:00 AM COMPLETE CBC W/AUTO [...] INJ OCCIPITAL Reviewed 10/01/2010 12:00 AM Kenalog Hz-[address]-20 ANNA Reviewed 07/25/2014 12:00 AM THER/PROPH/DIAG INJ [...] 0.60 mg/dLCALCIUM 10.90 mg/ dLeGFR >60 mL/min/1.73 [id number] 45.0 U/L 08/31/2013 10:54 AM GLUCOSE 255.0 [...] 0.40 mg/ dLCALCIUM 10.60 mg/dLeGFR >60 mL/min/1.73 [id number] 369.0 mg/ dLCHOLESTEROL 153.0 mg/dLHDL 26.0 mg/dLLDL [...] BILI 0.30 mg/dLCALCIUM 10.0 mg/dLeGFR >60 mL/min/1.73 [id number] YELLOW APPEARANCE CLEAR SPEC GRAV 1.010 pH 5.5 PROTEIN NEGATIVE GLUCOSE NEGATIVE KETONE NEGATIVE BILIRUBIN NEGATIVE BLOOD NEGATIVE NITRITE NEGATIVE [place] SCREEN NEGATIVE HGB A1C 6.30 %Est Avg Glucose 134.1 mg/dLMICROALBUMIN UR <0.5 MG/DL 02/13/2015 4:38 PM RMSF, IgG, EIA Negative [facility] Spotted Fever,IgM 0.51 E. chaffeensis [...] 141 Influenza 04/24/2014 sanofi pasteur PMC Fluzone [id number] Intramuscular Left Upper Arm 02/27/2014 01/15/2014 141 Influenza 02/13/2015 sanofi pasteur PMC Fluzone [id number] Intramuscular Left Deltoid 02/13/2015 01/03/2015 140 Tdap [...] Muscle Spasm Jun 18 2010 2:29PM Lumbago b 2010 8:33AM Bursitis Jul 06 2010 8:33AM [...] 10:58AM Heart palpitations Jan 21 2016 4:43PM Payers Insurance Name Company Name Plan Name Plan Number Policy Number Policy Group Number Start Date Medicare Part A Medicare RHC [id number] N/A [facility] [id number] N/A Medicare Part A Medicare - Lab/Xray [id number] N/A Medicare Part B Medicare [place] [id number] Monday, February 28, 2000 [place] [employer] [place] [employer] Prog [id number] Tuesday, November 10, 2009 Medicare Part A Medicare Part A [id number] N/A [place] [employer] - RHC [place] [employer] - RHC [id number] May [facility] [place] [facility] Plan of [id number] Wednesday, May 30, 2012 History of Encounters Visit Date Visit Type Provider 01/16/2016 Office visit Heena Dumont MD 12/16/2015 Office visit Heena Dumont MD 11/24/2015 Office visit Kaylynn Mendez LEAD DESIGNER 11/18/2015 Office visit Heena Dumont MD 11/03/2015 Office visit Sundeep Russell LEAD DESIGNER 10/20/2015 Office visit Kaylynn Mendez LEAD DESIGNER 09/23/2015 Office visit Kaylynn Mendez LEAD DESIGNER 09/16/[address] Pepe Figueroa MD 09/02/2015 Office visit Kaylynn Mendez LEAD DESIGNER 09/01/2015 Office visit Kaylynn Mendez LEAD DESIGNER 07/30/2015 Office visit Heena Dumont MD 07/15/2015 Office visit Kaylynn Mendez LEAD DESIGNER 07/04/2015 Office visit Heena Dumont MD 06/06/2015 Office visit Heena Dumont MD 06/06/2015 Office visit Kaylynn Mendez LEAD DESIGNER 06/02/2015 Office visit Kaylynn Mendez LEAD DESIGNER 05/26/2015 Office visit Kaylynn Mendez LEAD DESIGNER 05/20/2015 Office visit Kaylynn Mendez LEAD DESIGNER 05/08/2015 Office visit Heena Dumont MD 05/06/2015 Office visit Kaylynn Mendez LEAD DESIGNER 04/29/2015 Office visit Kaylynn Mendez LEAD DESIGNER 03/27/2015 Voided Brittni Yanez LEAD DESIGNER 03/21/2015 Office visit Heena Dumont MD 03/12/2015 Office visit Kaylynn Mendez LEAD DESIGNER 02/26/2015 Office visit Brittni Yanez LEAD DESIGNER 02/13/2015 Office visit Heena Dumont MD 01/15/2015 Office visit Brittni Yanez LEAD DESIGNER 01/13/2015 Office visit Heena Dumont MD 01/08/[address] Carol Fowler MD 01/01/2015 Office visit Brittni Yanez LEAD DESIGNER 12/13/2014 Office visit Heena Dumont MD 11/27/2014 Office visit Kaylynn Mendez LEAD DESIGNER 11/14/2014 Office visit Heena Dumont MD 10/18/2014 Office visit Heena Dumont MD 10/17/2014 [facility] John Hoskins MD 10/09/2014 Office visit Heena Dumont MD 09/25/2014 Office visit Heena Dumont MD 09/17/2014 Office visit Kaylynn Mendez LEAD DESIGNER 09/04/2014 Office visit Heena Dumont MD 08/28/2014 Office visit Kaylynn Mendez LEAD DESIGNER 08/23/2014 [facility] John Hoskins MD 08/01/2014 Office visit Kaylynn Mendez LEAD DESIGNER 07/29/2014 Office visit Heena Dumont MD 07/25/2014 Nurse visit Heena Dumont MD 07/17/2014 Office visit Kaylynn Mendez LEAD DESIGNER 07/11/2014 Office visit Heena Dumont MD 07/01/2014 Office visit Heena Dumont MD 06/25/2014 Office visit Kaylynn Mendez LEAD DESIGNER 06/12/2014 Office visit Kaylynn Mendez LEAD DESIGNER 06/06/2014 Office visit Kaylynn Mendez LEAD DESIGNER 05/27/2014 Office visit Heena Dumont MD 04/20/2014 Office visit Yesica Falcon LEAD DESIGNER 03/29/2014 Office visit Na Jones LEAD DESIGNER 03/15/2014 Office visit Heena Dumont MD 2014 Office visit Heena Dumont MD 2014 [facility] John Hoskins MD 02/27/2014 Nurse visit Heena Dumont MD 02/13/2014 Office visit Lena El LEAD DESIGNER 02/07/2014 Office visit Heena Dumont MD 02/03/2014 Office visit Na Jones LEAD DESIGNER 01/30/2014 Office visit Kaylynn Mendez LEAD DESIGNER 01/24/2014 Office visit Sundeep Russell LEAD DESIGNER 01/16/2014 Office visit Kaylynn Mendez LEAD DESIGNER 01/10/2014 Nurse visit Kaylynn Mendez LEAD DESIGNER 01/08/2014 Office visit Kaylynn Mendez LEAD DESIGNER 12/05/2013 Office visit Kaylynn Mendez LEAD DESIGNER 11/21/2013 Office visit Kaylynn Mendez LEAD DESIGNER 10/23/2013 Office visit Brittni Yanez LEAD DESIGNER 10/17/2013 Nurse visit Heena Dumont MD 10/12/2013 Office visit Kaylynn Mendez LEAD DESIGNER 10/02/2013 Office visit Heena Dumont MD 09/20/2013 Nurse visit Kaylynn Mendez LEAD DESIGNER 09/20/2013 Voided Heena Dumont MD 09/14/2013 Office visit Kaylynn Walker LEAD DESIGNER 09/05/2013 Office visit Sundeep Russell LEAD DESIGNER 09/04/2013 Nurse visit Kaylynn Walker LEAD DESIGNER 08/31/2013 Office visit Kaylynn Walker LEAD DESIGNER 08/23/2013 Office visit Heena Dumont MD 08/10/2013 Office visit Kaylynn Walker LEAD DESIGNER 07/25/2013 Office visit Kaylynn Walker LEAD DESIGNER 07/18/2013 Office visit Kaylynn Walker LEAD DESIGNER 07/12/2013 Office visit Kaylynn Walker LEAD DESIGNER 06/28/2013 Nurse visit Kaylynn Walker LEAD DESIGNER 06/14/2013 Nurse visit Kaylynn Walker LEAD DESIGNER 06/08/2013 Nurse visit Kaylynn Walker LEAD DESIGNER 05/31/2013 Nurse visit Chadd Norris DO 05/18/2013 Office visit Terese Davidson MD 05/16/2013 Office visit Kaylynn Walker LEAD DESIGNER 05/09/2013 Office visit Kaylynn Mendez LEAD DESIGNER 04/29/2013 [facility] John Hoskins MD 04/25/2013 Nurse visit Kaylynn Walker LEAD DESIGNER 04/17/2013 Office visit Kaylynn Walker LEAD DESIGNER 04/03/2013 Nurse visit Kaylynn Mendez LEAD DESIGNER 04/03/2013 Office visit Terese Davidson MD 03/28/2013 Office visit Sundeep Russell LEAD DESIGNER 03/21/2013 Office visit Kaylynn Mendez LEAD DESIGNER 03/20/2013 Office visit Terese Davidson MD 03/14/2013 Nurse visit Kaylynn Walker LEAD DESIGNER 03/05/2013 Nurse visit Kaylynn Mendez LEAD DESIGNER 02/19/2013 Office visit Terese Davidson MD 02/16/2013 Nurse visit Kaylynn Mendez LEAD DESIGNER 02/09/2013 Office visit Sundeep Russell LEAD DESIGNER 02/08/2013 Nurse visit Kaylynn Walker LEAD DESIGNER 02/01/2013 Nurse visit Kaylynn Walker LEAD DESIGNER 01/26/2013 Nurse visit Sabrina Mendez BATON TE[employer]ER 01/25/2013 Office visit Kaylynn Walker LEAD DESIGNER 01/22/2013 Office visit Yoan Castaneda MD 01/18/2013 Nurse visit Kaylynn Walker LEAD DESIGNER 01/11/2013 Nurse visit Kaylynn Walker LEAD DESIGNER 01/05/2013 Nurse visit Kaylynn Walker LEAD DESIGNER 12/29/2012 Office visit Kaylynn Walker LEAD DESIGNER 11/27/2012 Office visit Kaylynn Walker LEAD DESIGNER 11/08/2012 Office visit Odell Tierney MD 11/08/2012 Voided Odell Tierney MD 11/07/2012 Office visit Kaylynn Mendez LEAD DESIGNER 10/31/2012 [facility] John Hoskins MD 10/31/2012 Office visit Kaylynn Mendez LEAD DESIGNER 10/19/2012 Office visit Genoveva Ayala LEAD DESIGNER 10/10/2012 Office visit Kaylynn Mendez LEAD DESIGNER 10/03/2012 Office visit Kaylynn Walker LEAD DESIGNER 09/26/2012 Office visit Kaylynn Walker LEAD DESIGNER 09/06/2012 Office visit Kaylynn Mendez LEAD DESIGNER 09/06/2012 Office visit Odell Tierney MD 08/31/2012 Voided Kaylynn Mendez LEAD DESIGNER 07/28/2012 Office visit Kaylynn Mendez LEAD DESIGNER 07/27/2012 Office visit David Joyner DO 07/20/2012 Hospital David Joyner DO 07/13/2012 [facility] David Joyner DO 07/11/2012 Office visit Kaylynn Mendez LEAD DESIGNER 06/27/2012 Hospital Odell Tierney MD 06/21/2012 Office visit David Joyner DO 06/21/2012 Office visit Odell Tierney MD 06/20/2012 Office visit Brittni Yanez LEAD DESIGNER 06/06/2012 Office visit Odell Tierney MD 05/03/2012 Office visit Kaylynn Mendez LEAD DESIGNER 04/28/2012 Office visit Brittni Yanez LEAD DESIGNER 04/11/2012 Office visit Kaylynn Mendez LEAD DESIGNER 04/06/2012 [facility] John Hoskins MD 03/30/2012 Office visit Kaylynn Mendez LEAD DESIGNER 03/15/2012 Office visit Kaylynn Mendez LEAD DESIGNER 03/15/2012 Office visit Odell Tierney MD 02/09/2012 Office visit Kaylynn Mendez LEAD DESIGNER 12/23/2011 Office visit Kaylynn Mendez LEAD DESIGNER 11/02/2011 Office visit Kaylynn Mendez LEAD DESIGNER 10/14/2011 Office visit Kaylynn Mendez LEAD DESIGNER 09/27/2011 Office visit Kaylynn Mendez LEAD DESIGNER 08/19/2011 Hospital John Hoskins MD 08/18/2011 Hospital John Hoskins MD 08/18/2011 Office visit Kaylynn Mendez LEAD DESIGNER 08/02/2011 Office visit Kaylynn Mendez LEAD DESIGNER 07/08/2011 Office visit Kaylynn Mendez LEAD DESIGNER 07/05/2011 Office visit Odell Tierney MD 06/15/2011 Office visit Kaylynn Mendez LEAD DESIGNER 05/14/2011 Office visit Kaylynn Mendez LEAD DESIGNER 05/11/2011 Office visit Odell Tierney MD 04/28/2011 Office visit Kaylynn Mendez LEAD DESIGNER 03/02/2011 Office visit Chadd Norris DO 02/17/2011 [...]
--- OUTSIDE RECORDS SUMMARY | 2018-05-09 20:19 | XMS REPORT ---
Author Author Kaylynn Mendez Organization [facility] Address [address] [place], [place] [id number] Care Team Providers Care Client Representative Name Role Phone Kaylynn Mendez PCP Unavailable [...] 08/27/2014 use as directed for 99 days Winslow 5-325 mg oral tablet 06/17/2014 06/27/2014 take [...] a day as needed for 30 days roymyqgb-ahpsmxekt-BG 3.5-10,000-1 mg/mL-unit/mL-% otic drops,suspension 201401/08/2015 instill 4 [...] Reviewed 04/28/2011 12:00 AM Decadron 1 mg ND#[id number] (Jr) Reviewed 04/28/2011 12:00 AM Depo-Medrol 80 mg NDC#[id number]-Irqbcxmk Reviewed 05/11/2011 12:00 AM N BLOCK INJ OCCIPITAL Reviewed 05/11/2011 12:00 AM Kenalog Sq-[address]-20 ANNA Reviewed 06/15/2011 12:00 AM COMPLETE CBC W/AUTO DIFF WBC Returned 06/15/2011 12:00 AM COMPREHEN METABOLIC PANEL Returned 07/08/2011 12:00 AM THER/PROPH/DIAG INJ SC/IM Reviewed 07/08/2011 12:00 AM Toradol,15mg ND#[id number], Adilene Reviewed 07/08/2011 12:00 AM Phenergan 50 Mg Im Nd 6582-2510-74 ALLIE Hoskins Reviewed 08/02/2011 12:00 AM THER/PROPH/DIAG INJ SC/IM Reviewed 08/02/2011 12:00 AM Decadron 1 mg NDC#[id number] (Jr) Reviewed 08/02/2011 12:00 AM Depo-Medrol 80 mg NDC#[id number]-Dqtatspo Reviewed 09/27/2011 12:00 AM THER/PROPH/DIAG INJ SC/IM Reviewed 09/27/2011 12:00 AM Depo-Medrol 80 mg NDC#[id number]-Vjmxvxmq Reviewed 10/14/2011 12:00 AM X-RAY EXAM OF ABDOMEN Returned 10/14/2011 12:00 AM URINALYSIS AUTO W/O SCOPE Reviewed 12/23/2011 12:00 AM THER/PROPH/DIAG INJ SC/IM Reviewed 12/23/2011 12:00 AM Decadron 1 mg NDC#[id number] (Jr) Reviewed 12/23/2011 12:00 AM Depo-Medrol 80 mg NDC#[id number]-Yppipevk Reviewed 02/09/2012 12:00 AM THER/PROPH/DIAG INJ SC/IM Reviewed 02/09/2012 12:00 AM Decadron 1 mg NDC#[id number] (Jr) Reviewed 02/09/2012 12:00 AM Depo-Medrol 80 mg NDC#[id number]-Sqnqczxu Reviewed 03/15/2012 12:00 AM N BLOCK INJ OCCIPITAL Reviewed 03/15/2012 12:00 AM Kenalog Gr-[address]-20 ANNA Reviewed 04/11/2012 12:00 AM COMPLETE CBC W/AUTO DIFF WBC Returned 04/11/2012 12:00 AM COMPREHEN METABOLIC PANEL Returned 04/11/2012 12:00 AM LIPID PANEL Returned 04/11/2012 12:00 AM ASSAY THYROID STIM HORMONE Returned 06/20/2012 12:00 AM THER/PROPH/DIAG INJ SC/IM Reviewed 06/20/2012 12:00 AM Decadron, Per 1 Mg ND# [address]-30 Reviewed 06/20/2012 12:00 AM Depo-Medrol, Per 80 Mg NDC#8032-2786-76 Reviewed 09/06/2012 12:00 AM N BLOCK INJ OCCIPITAL Reviewed 09/06/2012 12:00 AM Kenalog Ov-[address]-20 ANNA Reviewed 09/06/2012 12:00 AM X-RAY EXAM RIBS UNI 2 VIEWS Returned 09/26/2012 12:00 AM THER/PROPH/DIAG INJ SC/IM Reviewed 09/26/2012 12:00 AM Decadron, Per 1 Mg NDC# [address]-83 Reviewed 09/26/2012 12:00 AM Depo-Medrol, Per 80 Mg NDC#0203-3283-58 Reviewed 10/03/2012 12:00 AM URINALYSIS AUTO W/O SCOPE Reviewed 10/03/2012 12:00 AM THER/PROPH/DIAG INJ SC/IM Reviewed 10/03/2012 12:00 AM Toradol 60 Mg ND#2785-6728-93 Reviewed 10/03/2012 12:00 AM Phenergan, 25Mg ND#7225-4823-90 Reviewed 10/19/2012 12:00 AM N BLOCK INJ OCCIPITAL Reviewed 10/19/2012 12:00 AM Kenalog, Per 10 Mg ND#5250-7582-61 Reviewed 10/19/2012 12:00 AM Toradol 30 Mg ND#5629-9004-62 Reviewed 10/19/2012 12:00 AM THER/PROPH/DIAG INJ SC/IM Reviewed 10/31/2012 12:00 AM COMPLETE CBC W/AUTO DIFF WBC Returned 10/31/2012 12:00 AM COMPREHEN METABOLIC PANEL Returned 10/31/2012 12:00 AM LIPID PANEL Returned 11/03/2012 12:[address] THORAX W/O & W/DYE Returned 11/08/2012 12:00 AM N BLOCK INJ OCCIPITAL Reviewed 11/08/2012 12:00 AM Kenalog Pf-[address]-20 ANNA Reviewed 11/27/2012 12:00 AM COMPLETE CBC [...] Decadron, Per 1 Mg [facility]# [address]-10 Reviewed 01/25/2013 12:00 AM Depo-Medrol, Per 80 Mg [facility]#5570-4399-98 Reviewed 01/26/2013 12:00 AM IMMUNOTHERAPY INJECTIONS Returned [...] Decadron, Per 1 Mg [facility]# [address]-24 Reviewed 05/16/2013 12:00 AM Depo-Medrol, Per 80 Mg [facility]#7919-6811-19 Reviewed 05/31/2013 12:00 AM IMMUNOTHERAPY INJECTIONS Reviewed 06/08/2013 12:00 AM IMMUNOTHERAPY INJECTIONS Reviewed 06/14/2013 12:00 AM IMMUNOTHERAPY INJECTIONS Reviewed 06/28/2013 12:00 AM IMMUNOTHERAPY INJECTIONS Reviewed 07/12/2013 12:00 AM X-RAY EXAM RIBS UNI 2 VIEWS Returned 07/18/2013 12:00 AM Toradol 60 Mg [facility]#2487-5378-39 Reviewed 07/18/2013 12:00 AM THER/PROPH/DIAG INJ SC/IM Reviewed 08/23/2013 12:00 AM COMPLETE CBC W/AUTO DIFF WBC Reviewed 08/23/2013 12:00 AM COMPREHEN METABOLIC PANEL Reviewed 08/23/2013 12:00 AM LIPID PANEL Reviewed 08/31/2013 12:00 AM X-RAY EXAM OF LOWER LEG Returned 09/04/2013 12:00 AM IMMUNOTHERAPY INJECTIONS Reviewed 09/14/2013 12:00 AM THER/PROPH/DIAG INJ SC/IM Reviewed 09/14/2013 12:00 AM Decadron, Per 1 Mg [facility]# [address]-89 Reviewed 09/14/2013 12:00 AM Depo-Medrol, Per 80 Mg [facility]#0232-7074-87 Reviewed 09/20/2013 12:00 AM IMMUNOTHERAPY INJECTIONS Reviewed [...] INJ OCCIPITAL Reviewed 12/10/2009 12:00 AM Kenalog Nk-[address]-20 ANNA Reviewed 12/16/2009 12:00 AM HIV-1ANTIBODY Reviewed 12/16/2009 12:00 AM COMPLETE CBC W/AUTO DIFF WBC Reviewed 12/16/2009 12:00 AM METABOLIC PANEL TOTAL CA Reviewed 12/16/2009 12:00 AM Type and screen Reviewed 12/16/2009 12:00 AM PROTHROMBIN TIME Reviewed 12/16/2009 12:00 AM THROMBOPLASTIN TIME PARTIAL Reviewed 03/18/2010 12:00 AM DRAIN/INJ JOINT/BURSA W/O US Reviewed 03/18/2010 12:00 AM Kenalog Sy-[address]-20 ANNA Reviewed 11/21/2013 12:00 AM RADEX HAND MINIMUM 3 VIEWS Returned 06/03/2010 12:00 AM INJ TRIGGER POINT 1/2 MUSCL Reviewed 06/03/2010 12:00 AM Kenalog per 10Mg Im-[facility]#[address]-36(Niall) Reviewed 12/05/2013 12:00 AM COMPLETE CBC W/AUTO [...] AM Kenalog per 10Mg Im-[facility]#[address]-93(Niall) Reviewed 2014 12:00 AM COMPLETE CBC W/AUTO [...] INJ OCCIPITAL Reviewed 10/01/2010 12:00 AM Kenalog Gn-[address]-20 ANNA Reviewed 07/25/2014 12:00 AM THER/PROPH/DIAG INJ [...] 0.60 mg/dLCALCIUM 10.90 mg/ dLeGFR >60 mL/min/1.73 [id number] 45.0 U/L 08/31/2013 10:54 AM GLUCOSE 255.0 [...] 0.40 mg/ dLCALCIUM 10.60 mg/dLeGFR >60 mL/min/1.73 [id number] 369.0 mg/ dLCHOLESTEROL 153.0 mg/dLHDL 26.0 mg/dLLDL [...] BILI 0.30 mg/dLCALCIUM 10.0 mg/dLeGFR >60 mL/min/1.73 [id number] YELLOW APPEARANCE CLEAR SPEC GRAV 1.010 pH [...] 141 Influenza 04/24/2014 sanofi pasteur PMC Fluzone [id number] Intramuscular Left Upper Arm 02/27/2014 01/15/2014 141 Influenza 02/13/2015 san[employer]i paste[employer] PMC Fluzone [id number] Intramuscular Left Deltoid 02/13/2015 01/03/2015 140 History [...] Date Medicare Part A Medicare Part A [id number] N/A [facility] [id number] N/A [place] Director Software Quality Assurance Prog [facility] - C [id number] [facility] Comm Plan of [id number] Wednesday, 2012 Medicare Part B Medicare [place] [id number] Monday, 2000 [place] Medical [place] Program [place] [employer] [place] Prog [id number] Tuesday, 2009 History of Encounters Visit Date Visit Type Provider 05/20/2015 Office visit Kaylynn Mendez PRESSED OR BLOWN GLASS WORKER 05/08/2015 Office visit Heena Dumont MD 05/06/2015 Office visit Kaylynn Mendez PRESSED OR BLOWN GLASS WORKER 04/29/2015 Office visit Kaylynn Mendez PRESSED OR BLOWN GLASS WORKER 03/27/2015 Voided Brittni Yanez PRESSED OR BLOWN GLASS WORKER 03/21/2015 Office visit Heena Dmuont MD 03/12/2015 Office visit Kaylynn Mendez PRESSED OR BLOWN GLASS WORKER 02/26/2015 Office visit Brittni Yanez PRESSED OR BLOWN GLASS WORKER 02/13/2015 Office visit Heena Dumont MD 01/15/2015 Office visit Brittni Yanez PRESSED OR BLOWN GLASS WORKER 01/13/2015 Office visit Heena Dumont MD 01/08/[address] Carol Fowler MD 01/01/2015 Office visit Brittni Yanez PRESSED OR BLOWN GLASS WORKER 12/13/2014 Office visit Heena Dumont MD 11/27/2014 Office visit Kaylynn Mendez PRESSED OR BLOWN GLASS WORKER 11/14/2014 Office visit Heena Dumont MD 10/18/2014 Office visit Heena Dumont MD 10/17/2014 [facility] Eliseo Hoskins MD 10/09/2014 Office visit Heena Dumont MD 09/25/2014 Office visit Heena Dumont MD 09/17/2014 Office visit Kaylynn Mendez PRESSED OR BLOWN GLASS WORKER 09/04/2014 Office visit Heena Dumont MD 08/28/2014 Office visit Kaylynn Mendez PRESSED OR BLOWN GLASS WORKER 08/23/2014 [facility] Eliseo Hoskins MD 08/01/2014 Office visit Kaylynn Mendez PRESSED OR BLOWN GLASS WORKER 07/29/2014 Office visit Heena Dumont MD 07/25/2014 Nurse visit Heena Dumont MD 07/17/2014 Office visit Kaylynn Mendez PRESSED OR BLOWN GLASS WORKER 07/11/2014 Office visit Heena Dumont MD 07/01/2014 Office visit Heena Dumont MD 06/25/2014 Office visit Kaylynn Mendez PRESSED OR BLOWN GLASS WORKER 06/12/2014 Office visit Kaylynn Mendez PRESSED OR BLOWN GLASS WORKER 06/06/2014 Office visit Kaylynn Mendez PRESSED OR BLOWN GLASS WORKER 05/27/2014 Office visit Heena Dumont MD 04/20/2014 Office visit Yesica Falcon PRESSED OR BLOWN GLASS WORKER 03/29/2014 Office visit Na Jones PRESSED OR BLOWN GLASS WORKER 03/15/2014 Office visit Heena Dumont MD 2014 Office visit Heena Dumont MD 2014 [facility] John Hoskins MD 02/27/2014 Nurse visit Heena Dumont MD 02/13/2014 Office visit Lena El PRESSED OR BLOWN GLASS WORKER 02/07/2014 Office visit Heena Dumont MD 02/03/2014 Office visit Na Jones PRESSED OR BLOWN GLASS WORKER 01/30/2014 Office visit Kaylynn Mendez PRESSED OR BLOWN GLASS WORKER 01/24/2014 Office visit Sundeep Russell PRESSED OR BLOWN GLASS WORKER 01/16/2014 Office visit Kaylynn Mendez PRESSED OR BLOWN GLASS WORKER 01/10/2014 Nurse visit Kaylynn Mendez PRESSED OR BLOWN GLASS WORKER 01/08/2014 Office visit Kaylynn Mendez PRESSED OR BLOWN GLASS WORKER 12/05/2013 Office visit Kaylynn Mendez PRESSED OR BLOWN GLASS WORKER 11/21/2013 Office visit Kaylynn Mendez PRESSED OR BLOWN GLASS WORKER 10/23/2013 Office visit Brittni Yanez PRESSED OR BLOWN GLASS WORKER 10/17/2013 Nurse visit Heena Dumont MD 10/12/2013 Office visit Kaylynn Mendez PRESSED OR BLOWN GLASS WORKER 10/02/2013 Office visit Heena Dumont MD 09/20/2013 Nurse visit Kaylynn Mendez PRESSED OR BLOWN GLASS WORKER 09/20/2013 Voided Heena Dumont MD 09/14/2013 Office visit Kaylynn Mendez PRESSED OR BLOWN GLASS WORKER 09/05/2013 Office visit Sundeep Russell PRESSED OR BLOWN GLASS WORKER 09/04/2013 Nurse visit Kaylynn Walker PRESSED OR BLOWN GLASS WORKER 08/31/2013 Office visit Kaylynn Walker PRESSED OR BLOWN GLASS WORKER 08/23/2013 Office visit Heena Dumont MD 08/10/2013 Office visit Kaylynn Walker PRESSED OR BLOWN GLASS WORKER 07/25/2013 Office visit Kaylynn Walker PRESSED OR BLOWN GLASS WORKER 07/18/2013 Office visit Kaylynn Walker PRESSED OR BLOWN GLASS WORKER 07/12/2013 Office visit Kaylynn Walker PRESSED OR BLOWN GLASS WORKER 06/28/2013 Nurse visit Kaylynn Walker PRESSED OR BLOWN GLASS WORKER 06/14/2013 Nurse visit Kaylynn Walker PRESSED OR BLOWN GLASS WORKER 06/08/2013 Nurse visit Kaylynn Walker PRESSED OR BLOWN GLASS WORKER 05/31/2013 Nurse visit Chadd Norris DO 05/18/2013 Office visit Terese Davidson MD 05/16/2013 Office visit Kaylynn Walker PRESSED OR BLOWN GLASS WORKER 05/09/2013 Office visit Kaylynn Walker PRESSED OR BLOWN GLASS WORKER 04/29/2013 [facility] John Hoskins MD 04/25/2013 Nurse visit Kaylynn Walker PRESSED OR BLOWN GLASS WORKER 04/17/2013 Office visit Kaylynn Walker PRESSED OR BLOWN GLASS WORKER 04/03/2013 Nurse visit Kaylynn Walker PRESSED OR BLOWN GLASS WORKER 04/03/2013 Office visit Terese Davidson MD 03/28/2013 Office visit Sundeep Russell PRESSED OR BLOWN GLASS WORKER 03/21/2013 Office visit Kaylynn Mendez PRESSED OR BLOWN GLASS WORKER 03/20/2013 Office visit Terese Davidson MD 03/14/2013 Nurse visit Kaylynn Walker PRESSED OR BLOWN GLASS WORKER 03/05/2013 Nurse visit Kaylynn Walker PRESSED OR BLOWN GLASS WORKER 02/19/2013 Office visit Terese Davidson MD 02/16/2013 Nurse visit Kaylynn Walker PRESSED OR BLOWN GLASS WORKER 02/09/2013 Office visit Sundeep Russell PRESSED OR BLOWN GLASS WORKER 02/08/2013 Nurse visit Kaylynn Walker PRESSED OR BLOWN GLASS WORKER 02/01/2013 Nurse visit Kaylynn Walker PRESSED OR BLOWN GLASS WORKER 01/26/2013 Nurse visit Sabrina Mendez WELFARE ADVISER 01/25/2013 Office visit Kaylynn Walker PRESSED OR BLOWN GLASS WORKER 01/22/2013 Office visit Yoan Castaneda MD 01/18/2013 Nurse visit Kaylynn Walker PRESSED OR BLOWN GLASS WORKER 01/11/2013 Nurse visit Kaylynn Walker PRESSED OR BLOWN GLASS WORKER 01/05/2013 Nurse visit Kaylynn Walker PRESSED OR BLOWN GLASS WORKER 12/29/2012 Office visit Kaylynn Walker PRESSED OR BLOWN GLASS WORKER 11/27/2012 Office visit Kaylynn Walker PRESSED OR BLOWN GLASS WORKER 11/08/2012 Office visit Odell Tierney MD 11/08/2012 Voided Odell Tierney MD 11/07/2012 Office visit Kaylynn Mendez PRESSED OR BLOWN GLASS WORKER 10/31/2012 [facility] John Hoskins MD 10/31/2012 Office visit Kaylynn Walker PRESSED OR BLOWN GLASS WORKER 10/19/2012 Office visit Genoveva Ayala PRESSED OR BLOWN GLASS WORKER 10/10/2012 Office visit Kayylnn Mendez PRESSED OR BLOWN GLASS WORKER 10/03/2012 Office visit Kaylynn Andrea PRESSED OR BLOWN GLASS WORKER 09/26/2012 Office visit Kaylynn Mendez PRESSED OR BLOWN GLASS WORKER 09/06/2012 Office visit Kaylynn Mendez PRESSED OR BLOWN GLASS WORKER 09/06/2012 Office visit Odell Tierney MD 08/31/2012 Voided Kaylynn Mendez PRESSED OR BLOWN GLASS WORKER 07/28/2012 Office visit Kaylynn Mendez PRESSED OR BLOWN GLASS WORKER 07/27/2012 Office visit David Ar DO 07/20/2012 [facility] David Joyner DO 07/13/2012 [facility] David Joyner DO 07/11/2012 Office visit Kaylynn Mendez PRESSED OR BLOWN GLASS WORKER 06/27/2012 [facility] Odell Tierney MD 06/21/2012 Office visit David Joyner DO 06/21/2012 Office visit Odell Tierney MD 06/20/2012 Office visit Brittni Yanez PRESSED OR BLOWN GLASS WORKER 06/06/2012 Office visit Odell Tierney MD 05/03/2012 Office visit Kaylynn Mendez PRESSED OR BLOWN GLASS WORKER 04/28/2012 Office visit Brittni Yanez PRESSED OR BLOWN GLASS WORKER 04/11/2012 Office visit Kaylynn Mendez PRESSED OR BLOWN GLASS WORKER 04/06/2012 [facility] John Hoskins MD 03/30/2012 Office visit Kaylynn Mendez PRESSED OR BLOWN GLASS WORKER 03/15/2012 Office visit Kaylynn Mendez PRESSED OR BLOWN GLASS WORKER 03/15/2012 Office visit Odell Tierney MD 02/09/2012 Office visit Kaylynn Mendez PRESSED OR BLOWN GLASS WORKER 12/23/2011 Office visit Kaylynn Mendez PRESSED OR BLOWN GLASS WORKER 11/02/2011 Office visit Kaylynn Mendez PRESSED OR BLOWN GLASS WORKER 10/14/2011 Office visit Kaylynn Andrea PRESSED OR BLOWN GLASS WORKER 09/27/2011 Office visit Kaylynn Mendez PRESSED OR BLOWN GLASS WORKER 08/19/2011 [facility] John Hoskins MD 08/18/2011 [facility] John Hoskins MD 08/18/2011 Office visit Kaylynn Mendez PRESSED OR BLOWN GLASS WORKER 08/02/2011 Office visit Kaylynn Walker PRESSED OR BLOWN GLASS WORKER 07/08/2011 Office visit Kaylynn Mendez PRESSED OR BLOWN GLASS WORKER 07/05/2011 Office visit Odell Tierney MD 06/15/2011 Office visit Kaylynn Mendez PRESSED OR BLOWN GLASS WORKER 05/14/2011 Office visit Kaylynn Mendez PRESSED OR BLOWN GLASS WORKER 05/11/2011 Office visit Odell Tierney MD 04/28/2011 Office visit Kaylynn Mendez PRESSED OR BLOWN GLASS WORKER 03/02/2011 Office visit Chadd Norris DO 02/17/2011 Office visit Chadd Norris DO 01/19/2011 Office visit Odell Tierney MD 12/16/2010 Office visit Odell Tierney MD 12/02/2010 Office visit Yoan Castaneda MD 11/24/2010 Office visit Chadd oNrris DO 11/17/2010 Office visit Chadd Norris DO [...]
--- OUTSIDE RECORDS SUMMARY | 2018-05-09 20:24 | XMS REPORT ---
Author Author Kaylynn Mendez Organization [facility] Address [address] [place], [place] [id number] Care Team Providers Care Financial Administrative Assistant Name Role Phone Kaylynn Mendez PCP [...] 01/19/2016 APPLY BY EXTERNAL ROUTE ONCE DAILY [employer] IQ Meter Enjectcellaneous kit 01/21/2016 test 2 x daily, Dx: [...] DAILY BEFORE A MEAL FOR 30 DAYS montelukast 10 mg oral tablet 07/01/2016 12/28/2016 [...] CRUSH, CHEW AND/OR DIVIDE. FOR 30 DAYS prednisone 20 mg oral tablet 11/17/2016 take [...] BY ORAL ROUTE ONLY WHEN TAKING LASIX. MS Contin 30 mg oral tablet extended release 12/02/2016 01/01/2017 take 0.5 tablet by oral route every 12 hours for 30 days cetirizine 10 mg oral tablet 12/06/2016 TAKE [...] 08/27/2014 use as directed for 99 days Spivey 5-325 mg oral tablet 06/17/2014 06/27/2014 take [...] a day as needed for 30 days seogqiku-hqorynckk-DA 3.5-10,000-1 mg/mL-unit/mL-% otic drops,suspension 201401/08/2015 instill 4 [...] Ok for similiar substitution or individual components. fmkjyskm-prghajksp-ZR 3.5-10,000-1 mg/mL-unit/mL-% otic drops,suspension 201607/23/2016 instill 4 [...] bedtime for 30 days per kaylynn increase iwlla lidocaine 5 % topical adhesive patch,medicated 03/15/2014 [...] HC BMI BSA BMI Percentile O2 Sat(%) 12/15/2016 10:45:00 AM 126 mmHg 78 mmHg [...] 04/28/2011 12:00 AM Decadron 1 mg [facility]#86079378104 (Jr) Reviewed 04/28/2011 12:00 AM Depo-Medrol 80 mg ND#[id number]-Oblpcawe Reviewed 09/02/2015 12:00 AM Toradol 60 Mg ND#4811-4642-07 Reviewed 09/02/2015 12:00 AM Phenergan, Up to 50 Mg RHC Medicaid Reviewed 09/16/2015 12:00 AM Toradol 60 Mg [facility]#8878-7932-41 Reviewed 09/16/2015 12:00 AM Phenergan Up to 50 mg RHC Medicare Reviewed 05/11/2011 12:00 AM N BLOCK INJ OCCIPITAL Reviewed 05/11/2011 12:00 AM Kenalog Nw-[address]-20 ANNA Reviewed 11/13/2015 12:00 AM ASSAY OF [...] INJ SC/IM Reviewed 07/08/2011 12:00 AM Toradol,15mg ND#[id number], Hetmejiaer Reviewed 07/08/2011 12:00 AM Phenergan 50 Mg Im [facility][Note 3] 5566-5569-30 [place] Reviewed 01/21/2016 12:00 AM ECG MONIT/REPRT UP TO 48 HRS Returned 08/02/2011 12:00 AM THER/PROPH/DIAG INJ SC/IM Reviewed 08/02/2011 12:00 AM Decadron 1 mg [facility]#81389856970 (Jr) Reviewed 08/02/2011 12:00 AM Depo-Medrol 80 mg [facility]#[id number]-Kdaudefp Reviewed 03/05/2016 12:00 AM COMPLETE CBC W/AUTO DIFF WBC Reviewed 03/05/2016 12:00 AM STREP A ASSAY W/OPTIC Reviewed 03/05/2016 12:00 AM C-REACTIVE PROTEIN Reviewed 03/18/2016 12:00 AM [facility] MEDICARE - flu vaccine administration Reviewed [...] Depo-Medrol 80 mg [facility]#[id number]-Hbvzwxyp Reviewed 09/27/2011 12:00 AM Depo-Medrol 40 mg [facility]#1576277102 Reviewed 07/06/2016 12:00 AM CHEST X-RAY 4/> [...] Reviewed 12/23/2011 12:00 AM Decadron 1 mg [facility]#00896284320 (Jr) Reviewed 12/23/2011 12:00 AM Depo-Medrol 80 mg N[facility]#[id number]-Btotolqn Reviewed 11/02/2016 11:45 AM URINALYSIS AUTO W/O SCOPE Reviewed 11/23/2016 12:00 AM COMPLETE CBC W/AUTO DIFF WBC Returned 11/23/2016 12:00 AM COMPREHEN METABOLIC PANEL Returned 11/23/2016 12:00 AM CHEST X-RAY 2VW FRONTAL&LATL Returned 11/23/2016 12:00 AM FIBRIN DEGRADE SEMIQUANT Returned 11/23/2016 12:00 AM ASSAY OF TROPONIN QUANT Returned 11/23/2016 12:00 AM ELECTROCARDIOGRAM TRACING Reviewed 12/02/2016 12:00 AM X-RAY EXAM OF ABDOMEN Returned 12/15/2016 12:00 AM X-RAY EXAM RIBS UNI 2 VIEWS Returned 02/09/2012 12:00 AM THER/PROPH/DIAG INJ SC/IM Reviewed 02/09/2012 12:00 AM Decadron 1 mg [facility]#[id number] (Jr) Reviewed 02/09/2012 12:00 AM Depo-Medrol 80 mg [facility]#03797642043-Rkwrmfxm Reviewed 03/15/2012 12:00 AM N BLOCK INJ OCCIPITAL Reviewed 03/15/2012 12:00 AM Kenalog Fx-[address]-20 ANNA Reviewed 04/11/2012 12:00 AM COMPLETE CBC W/AUTO DIFF WBC Reviewed 04/11/2012 12:00 AM COMPREHEN METABOLIC PANEL Reviewed 04/11/2012 12:00 AM LIPID PANEL Reviewed 04/11/2012 12:00 AM ASSAY THYROID STIM HORMONE Reviewed 04/11/2012 12:00 AM DESTRUCT PREMALG LES 2-14 Reviewed 06/20/2012 12:00 AM THER/PROPH/DIAG INJ SC/IM Reviewed 06/20/2012 12:00 AM Decadron, Per 1 Mg ND# [address]-84 Reviewed 06/20/2012 12:00 AM Depo-Medrol, Per 80 Mg NDC#2036-7093-59 Reviewed 09/06/2012 12:00 AM N BLOCK INJ OCCIPITAL Reviewed 09/06/2012 12:00 AM Kenalog Dp-[address]-20 ANNA Reviewed 09/06/2012 12:00 AM X-RAY EXAM RIBS UNI 2 VIEWS Reviewed 09/26/2012 12:00 AM THER/PROPH/DIAG INJ SC/IM Reviewed 09/26/2012 12:00 AM Decadron, Per 1 Mg NDC# [address]-48 Reviewed 09/26/2012 12:00 AM Depo-Medrol, Per 80 Mg NDC#8408-4002-31 Reviewed 10/03/2012 12:00 AM URINALYSIS AUTO W/O SCOPE Reviewed 10/03/2012 12:00 AM THER/PROPH/DIAG INJ SC/IM Reviewed 10/03/2012 12:00 AM Toradol 60 Mg ND#6784-6968-42 Reviewed 10/03/2012 12:00 AM Phenergan, 25Mg ND#8861-3814-65 Reviewed 10/19/2012 12:00 AM N BLOCK INJ OCCIPITAL Reviewed 10/19/2012 12:00 AM Kenalog, Per 10 Mg ND#5033-5054-41 Reviewed 10/19/2012 12:00 AM Toradol 30 Mg ND#2204-0592-28 Reviewed 10/19/2012 12:00 AM THER/PROPH/DIAG INJ SC/IM Reviewed 10/31/2012 12:00 AM COMPLETE CBC W/AUTO DIFF WBC Reviewed 10/31/2012 12:00 AM COMPREHEN METABOLIC PANEL Reviewed 10/31/2012 12:00 AM LIPID PANEL Reviewed 10/31/2012 12:00 AM ELECTROCARDIOGRAM COMPLETE Reviewed 11/03/2012 12:[address] THORAX W/O & W/DYE Reviewed 11/08/2012 12:00 AM N BLOCK INJ OCCIPITAL Reviewed 11/08/2012 12:00 AM Kenalog Sp-[address]-20 ANNA Reviewed 11/27/2012 12:00 AM COMPLETE CBC [...] 1 Mg [facility]# [address]-69 Reviewed 01/25/2013 12:00 AM Depo-Medrol, Per 80 Mg [facility]#7463-6290-71 Reviewed 01/26/2013 12:00 AM IMMUNOTHERAPY ONE INJECTION [...] 1 Mg [facility]# [address]-23 Reviewed 05/16/2013 12:00 AM Depo-Medrol, Per 80 Mg [facility]#0091-6022-96 Reviewed 05/31/2013 12:00 AM IMMUNOTHERAPY INJECTIONS Reviewed 06/08/2013 12:00 AM IMMUNOTHERAPY INJECTIONS Reviewed 06/14/2013 12:00 AM IMMUNOTHERAPY INJECTIONS Reviewed 06/28/2013 12:00 AM IMMUNOTHERAPY INJECTIONS Reviewed 07/12/2013 12:00 AM X-RAY EXAM RIBS UNI 2 VIEWS Reviewed 07/18/2013 12:00 AM Toradol 60 Mg [facility]#2882-7033-45 Reviewed 07/18/2013 12:00 AM THER/PROPH/DIAG INJ SC/IM [...] 1 Mg [facility]# [address]-53 Reviewed 09/14/2013 12:00 AM Depo-Medrol, Per 80 Mg [facility]#3155-5644-09 Reviewed 09/20/2013 12:00 AM IMMUNOTHERAPY INJECTIONS Reviewed [...] INJ OCCIPITAL Reviewed 12/10/2009 12:00 AM Kenalog My-[address]-20 ANNA Reviewed 12/16/2009 12:00 AM HIV-1ANTIBODY Reviewed 12/16/2009 12:00 AM COMPLETE CBC W/AUTO DIFF WBC Reviewed 12/16/2009 12:00 AM METABOLIC PANEL TOTAL CA Reviewed 12/16/2009 12:00 AM Type and screen Reviewed 12/16/2009 12:00 AM PROTHROMBIN TIME Reviewed 12/16/2009 12:00 AM THROMBOPLASTIN TIME PARTIAL Reviewed 03/18/2010 12:00 AM DRAIN/INJ JOINT/BURSA W/O US Reviewed 03/18/2010 12:00 AM Kenalog Gw-[address]-20 ANNA Reviewed 11/21/2013 12:00 AM RADEX HAND MINIMUM 3 VIEWS Reviewed 06/03/2010 12:00 AM INJ TRIGGER POINT 1/2 MUSCL Reviewed 06/03/2010 12:00 AM Kenalog per 10Mg Im-Ndc#[address]-66(Niall) Reviewed 12/05/2013 12:00 AM COMPLETE CBC W/AUTO [...] Reviewed 07/23/2010 12:00 AM Kenalog per 10Mg Im-Ndc#[address]-33(Niall) Reviewed 2014 12:00 AM COMPLETE CBC W/AUTO [...] INJ OCCIPITAL Reviewed 10/01/2010 12:00 AM Kenalog Iy-[address]-20 ANNA Reviewed 07/25/2014 12:00 AM THER/PROPH/DIAG INJ [...] <0.80 RMSF , IgG, EIA Negative Dejuan [facility]3] Spotted Fever,IgM 0.51 E. chaffeensis (HME) IgGTiter [...] 141 Influenza 04/24/2014 sanofi pasteur PMC Fluzone [id number] Intramuscular Left Upper Arm 02/27/2014 01/15/2014 141 Influenza 02/13/2015 sanofi pasteur PMC Fluzone [id number] Intramuscular Left Deltoid 02/13/2015 01/03/2015 140 Tdap 06/06/2015 [employer] SKB BOOSTRIX [id number] Intramuscular Left Deltoid 06/06/2015 07/23/2014 115 Influenza 03/18/2016 sanofi pasteur PMC Fluzone [id number] Intramuscular Left Deltoid 03/17/2016 01/03/2015 141 History [...] of cervical region b 2016 3:25PM Cervicalgia Feb 10 2016 3:25PM [...] 2016 10:47AM Cervicalgia Dec 20 2016 9:08AM Payers Insurance Name Company Name Plan Name Plan Number Policy Number Policy Group Number Start Date Medicare RHC Medicare RHC [id number] N/A [facility] Comm [id number] N/A Medicare Part A Medicare - Lab/Xray [id number] N/A Medicare Part B Medicare Of [place] [id number] Monday, February 28, 2000 [place] [facility] [employer] [facility] [place] [employer] Prog [id number] Tuesday, November 10, 2009 Medicare Part A Medicare Part A [id number] N/A [place]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 - RHC [id number] [facility] Comm Plan of [id number] Wednesday, May 30, 2012 History of Encounters Visit Date Visit Type Provider 12/15/2016 Office visit Kaylynn Mendez APRN 12/02/2016 Office visit Heena Dumont MD 11/23/2016 Office visit Kaylynn Mendez APRN 11/17/2016 Office visit Kaylynn Mendez APRN 11/05/2016 Office visit Rcicardo Cardoza MD 11/02/2016 Office visit Heena Dumont MD 10/06/2016 Office visit Kaylynn Mendez CLOCK REPAIR TECHNICIAN 09/22/2016 Office visit Heena Dumont MD 09/09/2016 Office visit Kaylynn Mendez CLOCK REPAIR TECHNICIAN 08/27/2016 Office visit Riccardo Cardoza MD 08/26/2016 Office visit Heena Dumont MD 07/09/2016 Office visit Riccardo Cardoza MD 07/06/2016 Office visit Heena Dumont MD 06/18/2016 Office visit Kaylynn Mendez CLOCK REPAIR TECHNICIAN 06/07/2016 Office visit Sundeep Russell CLOCK REPAIR TECHNICIAN 06/04/2016 Office visit Heena Dumont MD 05/13/2016 Office visit Heena Dumont MD 05/03/2016 Office visit Heena Dumont MD 04/26/2016 Office visit Kaylynn Mendez CLOCK REPAIR TECHNICIAN 04/14/2016 Office visit Heena Dumont MD 04/13/2016 Office visit Kaylynn Mendez CLOCK REPAIR TECHNICIAN 04/02/2016 Office visit Lena El CLOCK REPAIR TECHNICIAN 04/02/2016 Office visit Heena Dumont MD 03/26/2016 Office visit Yesica Falcon CLOCK REPAIR TECHNICIAN 03/17/2016 Office visit Heena Dumont MD 03/05/2016 Office visit Kaylynn Mendez CLOCK REPAIR TECHNICIAN 02/16/2016 Office visit Heena Dumont MD 02/14/2016 Office visit Na Jones CLOCK REPAIR TECHNICIAN 01/16/2016 Office visit Heena Dumont MD 12/16/2015 Office visit Heena Dumont MD 11/24/2015 Office visit Kaylynn Mendez CLOCK REPAIR TECHNICIAN 11/18/2015 Office visit Heena Dumont MD 11/03/2015 Office visit Sundeep Russell CLOCK REPAIR TECHNICIAN 10/20/2015 Office visit Kaylynn Mendez CLOCK REPAIR TECHNICIAN 09/23/2015 Office visit Kaylynn Mendez CLOCK REPAIR TECHNICIAN 09/16/[address] Pepe Figueroa MD 09/02/2015 Office visit Kaylynn Mendez CLOCK REPAIR TECHNICIAN 09/01/2015 Office visit Kaylynn Mendez CLOCK REPAIR TECHNICIAN 07/30/2015 Office visit Heena Dumont MD 07/15/2015 Office visit Kaylynn Mendez CLOCK REPAIR TECHNICIAN 07/04/2015 Office visit Heena Dumont MD 06/06/2015 Office visit Heena Dumont MD 06/06/2015 Office visit Kaylynn Mendez CLOCK REPAIR TECHNICIAN 06/02/2015 Office visit Kaylynn Mendez CLOCK REPAIR TECHNICIAN 05/26/2015 Office visit Kaylynn Mendez CLOCK REPAIR TECHNICIAN 05/20/2015 Office visit Kaylynn Mendez CLOCK REPAIR TECHNICIAN 05/08/2015 Office visit Heena Dumont MD 05/06/2015 Office visit Kaylynn Mendez CLOCK REPAIR TECHNICIAN 04/29/2015 Office visit Kaylynn Mendez CLOCK REPAIR TECHNICIAN 03/27/2015 Voided Brittni Yanez CLOCK REPAIR TECHNICIAN 03/21/2015 Office visit Heena Dumont MD 03/12/2015 Office visit Kaylynn Mendez CLOCK REPAIR TECHNICIAN 02/26/2015 Office visit Brittni Yanez CLOCK REPAIR TECHNICIAN 02/13/2015 Office visit Heena Dumont MD 01/15/2015 Office visit Brittni Yanez CLOCK REPAIR TECHNICIAN 01/13/2015 Office visit Heena Dumont MD 01/08/[address] Carol Fowler MD 01/01/2015 Office visit Brittni Yanez CLOCK REPAIR TECHNICIAN 12/13/2014 Office visit Heena Dumont MD 11/27/2014 Office visit Kaylynn Mendez CLOCK REPAIR TECHNICIAN 11/14/2014 Office visit Heena Dumont MD 10/18/2014 Office visit Heena Dumont MD 10/17/2014 [facility] Hos[facility] MD 10/09/2014 Office visit Heena Dumont MD 09/25/2014 Office visit Heena Dumont MD 09/17/2014 Office visit Kaylynn Mendez CLOCK REPAIR TECHNICIAN 09/04/2014 Office visit Heena Dumont MD 08/28/2014 Office visit Kaylynn Mendez CLOCK REPAIR TECHNICIAN 08/23/2014 [facility] Hoskins MD 08/01/2014 Office visit Kaylynn Mendez CLOCK REPAIR TECHNICIAN 07/29/2014 Office visit Heena Dumont MD 07/25/2014 Nurse visit Heena Dumont MD 07/17/2014 Office visit Kaylynn Mendez CLOCK REPAIR TECHNICIAN 07/11/2014 Office visit Heena Dumont MD 07/01/2014 Office visit Heena Dumont MD 06/25/2014 Office visit Kaylynn Mendez CLOCK REPAIR TECHNICIAN 06/12/2014 Office visit Kaylynn Mendez CLOCK REPAIR TECHNICIAN 06/06/2014 Office visit Kaylynn Mendez CLOCK REPAIR TECHNICIAN 05/27/2014 Office visit Heena Dumont MD 04/20/2014 Office visit Yesica Falcon CLOCK REPAIR TECHNICIAN 03/29/2014 Office visit Na Jones CLOCK REPAIR TECHNICIAN 03/15/2014 Office visit Heena Dumont MD 2014 Office visit Heena Dumont MD 2014 [facility] MD 02/27/2014 Nurse visit Heena Dumont MD 02/13/2014 Office visit Lena El CLOCK REPAIR TECHNICIAN 02/07/2014 Office visit Heena Dumont MD 02/03/2014 Office visit Na Jones CLOCK REPAIR TECHNICIAN 01/30/2014 Office visit Kaylynn Mendez CLOCK REPAIR TECHNICIAN 01/24/2014 Office visit Sundeep Russell CLOCK REPAIR TECHNICIAN 01/16/2014 Office visit Kaylynn Walker CLOCK REPAIR TECHNICIAN 01/10/2014 Nurse visit Kaylynn Walker CLOCK REPAIR TECHNICIAN 01/08/2014 Office visit Kaylynn Walker CLOCK REPAIR TECHNICIAN 12/05/2013 Office visit Kaylynn Walker CLOCK REPAIR TECHNICIAN 11/21/2013 Office visit Kaylynn Walker CLOCK REPAIR TECHNICIAN 10/23/2013 Office visit Brittni Yanez CLOCK REPAIR TECHNICIAN 10/17/2013 Nurse visit Heena Dumont MD 10/12/2013 Office visit Kaylynn Mendez CLOCK REPAIR TECHNICIAN 10/02/2013 Office visit Heena Dumont MD 09/20/2013 Nurse visit Kaylynn Mendez CLOCK REPAIR TECHNICIAN 09/20/2013 Voided Heena Dumont MD 09/14/2013 Office visit Kaylynn Walker CLOCK REPAIR TECHNICIAN 09/05/2013 Office visit Sundeep Russell CLOCK REPAIR TECHNICIAN 09/04/2013 Nurse visit Kaylynn Mendez CLOCK REPAIR TECHNICIAN 08/31/2013 Office visit Kaylynn Walker CLOCK REPAIR TECHNICIAN 08/23/2013 Office visit Heena Dumont MD 08/10/2013 Office visit Kaylynn Walker CLOCK REPAIR TECHNICIAN 07/25/2013 Office visit Kaylynn Walker CLOCK REPAIR TECHNICIAN 07/18/2013 Office visit Kaylynn Walker CLOCK REPAIR TECHNICIAN 07/12/2013 Office visit Kaylynn Walker CLOCK REPAIR TECHNICIAN 06/28/2013 Nurse visit Kaylynn Walker CLOCK REPAIR TECHNICIAN 06/14/2013 Nurse visit Kaylynn Walker CLOCK REPAIR TECHNICIAN 06/08/2013 Nurse visit Kaylynn Walker CLOCK REPAIR TECHNICIAN 05/31/2013 Nurse visit Chadd Norris DO 05/18/2013 Office visit Terese Davidson MD 05/16/2013 Office visit Kaylynn Mendez CLOCK REPAIR TECHNICIAN 05/09/2013 Office visit Kaylynn Mendez CLOCK REPAIR TECHNICIAN 04/29/2013 [facility] John Hoskins MD 04/25/2013 Nurse visit Kaylynn Walker CLOCK REPAIR TECHNICIAN 04/17/2013 Office visit Kaylynn Walker CLOCK REPAIR TECHNICIAN 04/03/2013 Nurse visit Kaylynn Walker CLOCK REPAIR TECHNICIAN 04/03/2013 Office visit Terese Davidson MD 03/28/2013 Office visit Sundeep Russell CLOCK REPAIR TECHNICIAN 03/21/2013 Office visit Kaylynn Mendez CLOCK REPAIR TECHNICIAN 03/20/2013 Office visit Terese Davidson MD 03/14/2013 Nurse visit Kaylynn Mendez CLOCK REPAIR TECHNICIAN 03/05/2013 Nurse visit Kaylynn Mendez CLOCK REPAIR TECHNICIAN 02/19/2013 Office visit Terese Davidson MD 02/16/2013 Nurse visit Kaylynn Mendez CLOCK REPAIR TECHNICIAN 02/09/2013 Office visit Sundeep Russell CLOCK REPAIR TECHNICIAN 02/08/2013 Nurse visit Kaylynn Mednez CLOCK REPAIR TECHNICIAN 02/01/2013 Nurse visit Kaylynn Andrea CLOCK REPAIR TECHNICIAN 01/26/2013 Nurse visit Sabrina Mendez CHICKEN FANCIER 01/25/2013 Office visit Kaylynn Mendez CLOCK REPAIR TECHNICIAN 01/22/2013 Office visit Yoan Castaneda MD 01/18/2013 Nurse visit Kaylynn Walker CLOCK REPAIR TECHNICIAN 01/11/2013 Nurse visit Kaylynn Walker CLOCK REPAIR TECHNICIAN 01/05/2013 Nurse visit Kaylynn Walker CLOCK REPAIR TECHNICIAN 12/29/2012 Office visit Kaylynn Walker CLOCK REPAIR TECHNICIAN 11/27/2012 Office visit Kaylynn Andrea CLOCK REPAIR TECHNICIAN 11/08/2012 Office visit Odell Tierney MD 11/08/2012 Voided Odell Tierney MD 11/07/2012 Office visit Kaylynn Mendez CLOCK REPAIR TECHNICIAN 10/31/2012 [facility] John Hoskins MD 10/31/2012 Office visit Kaylynn Walker CLOCK REPAIR TECHNICIAN 10/19/2012 Office visit Genoveva Ayala CLOCK REPAIR TECHNICIAN 10/10/2012 Office visit Kaylynn Mendez CLOCK REPAIR TECHNICIAN 10/03/2012 Office visit Kaylynn Mendez CLOCK REPAIR TECHNICIAN 09/26/2012 Office visit Kaylynn Mendez CLOCK REPAIR TECHNICIAN 09/06/2012 Office visit Kaylynn Mendez CLOCK REPAIR TECHNICIAN 09/06/2012 Office visit Odell Tierney MD 08/31/2012 Voided Kaylynn Mendez CLOCK REPAIR TECHNICIAN 07/28/2012 Office visit Kaylynn Mendez CLOCK REPAIR TECHNICIAN 07/27/2012 Office visit David Joyner DO 07/20/2012 [facility] David Botom DO 07/13/2012 [facility] DO 07/11/2012 Office visit Kaylynn Mendez CLOCK REPAIR TECHNICIAN 06/27/2012 [facility] Odell Tierney MD 06/21/2012 Office visit David Joyner DO 06/21/2012 Office visit Odell Tierney MD 06/20/2012 Office visit Brittni Yanez CLOCK REPAIR TECHNICIAN 06/06/2012 Office visit Odell Tierney MD 05/03/2012 Office visit Kaylynn Mendez CLOCK REPAIR TECHNICIAN 04/28/2012 Office visit Brittni Yanez CLOCK REPAIR TECHNICIAN 04/11/2012 Office visit Kaylynn Mendez CLOCK REPAIR TECHNICIAN 04/06/2012 [facility] John Hoskins MD 03/30/2012 Office visit Kaylynn Mendez CLOCK REPAIR TECHNICIAN 03/15/2012 Office visit Kaylynn Mendez CLOCK REPAIR TECHNICIAN 03/15/2012 Office visit Odell Tierney MD 02/09/2012 Office visit Kaylynn Mendez CLOCK REPAIR TECHNICIAN 12/23/2011 Office visit Kaylynn Mendez CLOCK REPAIR TECHNICIAN 11/02/2011 Office visit Kaylynn Walker CLOCK REPAIR TECHNICIAN 10/14/2011 Office visit Kaylynn Andrea CLOCK REPAIR TECHNICIAN 09/27/2011 Office visit Kaylynn Mendez CLOCK REPAIR TECHNICIAN 08/19/2011 [facility] MD 08/18/2011 [facility] MD 08/18/2011 Office visit Kaylynn Mendez CLOCK REPAIR TECHNICIAN 08/02/2011 Office visit Kaylynn Mendez CLOCK REPAIR TECHNICIAN 07/08/2011 Office visit Kaylynn Mendez CLOCK REPAIR TECHNICIAN 07/05/2011 Office visit Odell Tierney MD 06/15/2011 Office visit Kaylynn Mendez CLOCK REPAIR TECHNICIAN 05/14/2011 Office visit Kaylynn Mendez CLOCK REPAIR TECHNICIAN 05/11/2011 Office visit Odell Tierney MD 04/28/2011 Office visit Kaylynn Mendez CLOCK REPAIR TECHNICIAN 03/02/2011 Office visit Chadd Norris DO [...] visit Yoan Castaneda MD 06/03/2010 Office visit dOell Tierney MD 03/18/2010 Office visit Odell Tierney [...]
--- OUTSIDE RECORDS SUMMARY | 2018-05-09 20:29 | XMS REPORT ---
Author Author Heena Dumont Organization 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 VSoft Lancets 33 gauge miscellaneous misc 01/21/2016 use as directed CaterCow miscellaneous strip 01/21/2016 07/19/2016 Test 2x daily, [...] 08/27/2014 use as directed for 99 days Saluda 5-325 mg oral tablet 06/17/2014 06/27/2014 take [...] a day as needed for 30 days psvrzyek-ezuxqxmbx-LQ 3.5-10,000-1 mg/mL-unit/mL-% otic drops,suspension 201401/08/2015 instill 4 [...] Reviewed 04/28/2011 12:00 AM Decadron 1 mg ND#[id number] (Jr) Reviewed 04/28/2011 12:00 AM Depo-Medrol 80 mg ND#[id number]-Ydgkmeis Reviewed 09/02/2015 12:00 AM Toradol 60 Mg NDC#8135-4206-70 Reviewed 09/02/2015 12:00 AM Phenergan, Up to 50 Mg RHC Medicaid Reviewed 09/16/2015 12:00 AM Toradol 60 Mg ND#9725-6772-92 Reviewed 09/16/2015 12:00 AM Phenergan Up to 50 mg RHC Medicare Reviewed 05/11/2011 12:00 AM N BLOCK INJ OCCIPITAL Reviewed 05/11/2011 12:00 AM Kenalog Vf-[address]-20 ANNA Reviewed 11/13/2015 12:00 AM ASSAY OF [...] INJ SC/IM Reviewed 07/08/2011 12:00 AM Toradol,15mg [facility]#[id number], [place] Reviewed 07/08/2011 12:00 AM Phenergan 50 Mg Im [facility] 4226-5209-84 [place] Reviewed 01/21/2016 12:00 AM ECG MONIT/REPRT UP TO 48 HRS Returned 08/02/2011 12:00 AM THER/PROPH/DIAG INJ SC/IM Reviewed 08/02/2011 12:00 [address] Dec[address] [facility]#[id number] (Jr) Reviewed 08/02/2011 12:00 AM Depo-Medrol [address] [facility]#[id number]-Mfoswqxm Reviewed 03/05/2016 12:00 AM COMPLETE CBC W/AUTO DIFF WBC Returned 03/05/2016 12:00 AM STREP A ASSAY W/OPTIC Returned 03/05/2016 12:00 AM C-REACTIVE PROTEIN Returned 03/18/2016 12:00 AM [facility] MEDICARE - flu vaccine administration Reviewed 03/18/2016 12:00 AM INFLUENZA VACCINE QUADRIVALENT 3 YRS PLUS IM Reviewed 04/15/2016 12:00 AM Screening mammography, bilateral Reviewed 04/16/2016 12:00 AM Consult/Referral Reviewed 05/03/2016 12:00 AM METABOLIC PANEL TOTAL CA Returned 05/03/2016 12:00 AM COMPLETE CBC W/AUTO DIFF WBC Returned 09/27/2011 12:00 AM THER/PROPH/DIAG INJ SC/IM Reviewed 09/27/2011 12:00 AM Depo-Medrol [address] [facility]#[id number]-Pxkyrxmu Reviewed 10/14/2011 12:00 AM X-RAY EXAM OF ABDOMEN Reviewed 10/14/2011 12:00 AM URINALYSIS AUTO W/O SCOPE Reviewed 12/23/2011 12:00 AM THER/PROPH/DIAG INJ SC/IM Reviewed 12/23/2011 12:00 AM Decadron 1 mg NDC#[id number] (Jr) Reviewed 12/23/2011 12:00 AM Depo-Medrol 80 mg NDC#[id number]-Gnkfqfjb Reviewed 02/09/2012 12:00 AM THER/PROPH/DIAG INJ SC/IM Reviewed 02/09/2012 12:00 AM Decadron 1 mg NDC#[id number] (Jr) Reviewed 02/09/2012 12:00 AM Depo-Medrol 80 mg NDC#[id number]-Stpyywqt Reviewed 03/15/2012 12:00 AM N BLOCK INJ OCCIPITAL Reviewed 03/15/2012 12:00 AM Kenalog Ux-[address]-20 ANNA Reviewed 04/11/2012 12:00 AM COMPLETE CBC W/AUTO DIFF WBC Reviewed 04/11/2012 12:00 AM COMPREHEN METABOLIC PANEL Reviewed 04/11/2012 12:00 AM LIPID PANEL Reviewed 04/11/2012 12:00 AM ASSAY THYROID STIM HORMONE Reviewed 06/20/2012 12:00 AM THER/PROPH/DIAG INJ SC/IM Reviewed 06/20/2012 12:00 AM Decadron, Per 1 Mg ND# [address]-18 Reviewed 06/20/2012 12:00 AM Depo-Medrol, Per 80 Mg ND#3919-2749-74 Reviewed 09/06/2012 12:00 AM N BLOCK INJ OCCIPITAL Reviewed 09/06/2012 12:00 AM Kenalog Ga-[address]-20 ANNA Reviewed 09/06/2012 12:00 AM X-RAY EXAM RIBS UNI 2 VIEWS Reviewed 09/26/2012 12:00 AM THER/PROPH/DIAG INJ SC/IM Reviewed 09/26/2012 12:00 AM Decadron, Per 1 Mg NDC# [address]-03 Reviewed 09/26/2012 12:00 AM Depo-Medrol, Per 80 Mg NDC#6029-0276-75 Reviewed 10/03/2012 12:00 AM URINALYSIS AUTO W/O SCOPE Reviewed 10/03/2012 12:00 AM THER/PROPH/DIAG INJ SC/IM Reviewed 10/03/2012 12:00 AM Toradol 60 Mg NDC#9462-8229-93 Reviewed 10/03/2012 12:00 AM Phenergan, 25Mg NDC#7159-0625-97 Reviewed 10/19/2012 12:00 AM N BLOCK INJ OCCIPITAL Reviewed 10/19/2012 12:00 AM Kenalog, Per [address] [facility]#1821-7233-22 Reviewed 10/19/2012 12:00 [address] [facility]#1423-1458-06 Reviewed 10/19/2012 12:00 AM THER/PROPH/DIAG INJ SC/IM Reviewed 10/31/2012 12:00 AM COMPLETE CBC W/AUTO DIFF WBC Reviewed 10/31/2012 12:00 AM COMPREHEN METABOLIC PANEL Reviewed 10/31/2012 12:00 AM LIPID PANEL Reviewed 11/03/2012 12:[address] THORAX W/O & W/DYE Reviewed 11/08/2012 12:00 AM N BLOCK INJ OCCIPITAL Reviewed 11/08/2012 12:00 AM Kenalog Kp-[address]-20 ANNA Reviewed 11/27/2012 12:00 AM COMPLETE CBC [...] 01/25/2013 12:00 AM Decadron, Per [address] [facility]# [address]-31 Reviewed 01/25/2013 12:00 AM Depo-Medrol, Per [address] [facility]#2661-9080-95 Reviewed 01/26/2013 12:00 AM IMMUNOTHERAPY INJECTIONS Reviewed [...] 05/16/2013 12:00 AM Decadron, Per [address] [facility]# [address]-38 Reviewed 05/16/2013 12:00 AM Depo-Medrol, Per [address] [facility]#2485-1351-53 Reviewed 05/31/2013 12:00 AM IMMUNOTHERAPY INJECTIONS Reviewed 06/08/2013 12:00 AM IMMUNOTHERAPY INJECTIONS Reviewed 06/14/2013 12:00 AM IMMUNOTHERAPY INJECTIONS Reviewed 06/28/2013 12:00 AM IMMUNOTHERAPY INJECTIONS Reviewed 07/12/2013 12:00 AM X-RAY EXAM RIBS UNI 2 VIEWS Reviewed 07/18/2013 12:[address] [facility]#4863-5282-20 Reviewed 07/18/2013 12:00 AM THER/PROPH/DIAG INJ SC/IM Reviewed 08/23/2013 12:00 AM COMPLETE CBC W/AUTO DIFF WBC Reviewed 08/23/2013 12:00 AM COMPREHEN METABOLIC PANEL Reviewed 08/23/2013 12:00 AM LIPID PANEL Reviewed 08/31/2013 12:00 AM X-RAY EXAM OF LOWER LEG Reviewed 09/04/2013 12:00 AM IMMUNOTHERAPY INJECTIONS Reviewed 09/14/2013 12:00 AM THER/PROPH/DIAG INJ SC/IM Reviewed 09/14/2013 12:00 AM Decadron, Per [address] [facility]# [address]-79 Reviewed 09/14/2013 12:00 AM Depo-Medrol, Per [address] [facility]#8628-7166-42 Reviewed 09/20/2013 12:00 AM IMMUNOTHERAPY INJECTIONS Reviewed [...] INJ OCCIPITAL Reviewed 12/10/2009 12:00 AM Kenalog Kw-[address]-20 ANNA Reviewed 12/16/2009 12:00 AM HIV-1ANTIBODY Reviewed 12/16/2009 12:00 AM COMPLETE CBC W/AUTO DIFF WBC Reviewed 12/16/2009 12:00 AM METABOLIC PANEL TOTAL CA Reviewed 12/16/2009 12:00 AM Type and screen Reviewed 12/16/2009 12:00 AM PROTHROMBIN TIME Reviewed 12/16/2009 12:00 AM THROMBOPLASTIN TIME PARTIAL Reviewed 03/18/2010 12:00 AM DRAIN/INJ JOINT/BURSA W/O US Reviewed 03/18/2010 12:00 AM Kenalog Mu-[address]-20 ANNA Reviewed 11/21/2013 12:00 AM RADEX HAND MINIMUM 3 VIEWS Reviewed 06/03/2010 12:00 AM INJ TRIGGER POINT 1/2 MUSCL Reviewed 06/03/2010 12:00 AM Kenalog per 10Mg -[facility]#[address]-35(Niall) Reviewed 12/05/2013 12:00 AM COMPLETE CBC W/AUTO [...] Kenalog per 10Mg Im-[facility]#[address]-29(Niall) Reviewed 2014 12:00 AM COMPLETE CBC W/AUTO [...] INJ OCCIPITAL Reviewed 10/01/2010 12:00 AM Kenalog Zr-[address]-20 ANNA Reviewed 07/25/2014 12:00 AM THER/PROPH/DIAG INJ [...] 141 Influenza 04/24/2014 sanofi pasteur PMC Fluzone [id number] Intramuscular Left Upper Arm 02/27/2014 01/15/2014 141 Influenza 02/13/2015 sanofi pasteur PMC Fluzone [id number] Intramuscular Left Deltoid 02/13/2015 01/03/2015 140 Tdap 06/06/2015 [employer] SKB BOOSTRIX [id number] Intramuscular Left Deltoid 06/06/2015 07/23/2014 115 Influenza 03/18/2016 sanofi pasteur PMC Fluzone [id number] Intramuscular Left Deltoid 03/17/2016 01/03/2015 141 History [...] 2016 3:43PM Insomnia May 03 2016 3:43PM Payers Insurance Name Company Name Plan Name Plan Number Policy Number Policy Group Number Start Date Medicare Part A Medicare RHC [id number] N/A [facility] Comm [id number] N/A Medicare Part A Medicare - Lab/Xray [id number] N/A Medicare Part B Medicare Of [place] [id number] Monday, February 28, 2000 [place] [employer] [place] [employer] Prog [id number] Tuesday, November 10, 2009 Medicare Part A Medicare Part A [id number] N/A [place] [employer] Prog - RHC [place] [employer] Prog - RHC [id number] May [facility] Comm Plan of [id number] Wednesday, May 30, 2012 History of Encounters Visit Date Visit Type Provider 05/13/2016 Office visit Heena Dumont MD 05/03/2016 Office visit Heena Dumont MD 04/26/2016 Office visit Kaylynn Mendez CLOTH WINDER 04/14/2016 Office visit Heena Dumont MD 04/13/2016 Office visit Kaylynn Mendez CL[facility] WINDER 04/02/2016 Office visit Lena El CLOTH WINDER 04/02/2016 Office visit Heena Dumont MD 03/26/2016 Office visit Yesica Falcon CL[facility] WINDER 03/17/2016 Office visit Heena Dumont MD 03/05/2016 Office visit Kaylynn Mendez CLOTH WINDER 02/16/2016 Office visit Heena Dumont MD 02/14/2016 Office visit Na Jones CLOTH WINDER 01/16/2016 Office visit Heena Dumont MD 12/16/2015 Office visit Heena Dumont MD 11/24/2015 Office visit Kaylynn Mendez CL[employer] WINDER 11/18/2015 Office visit Heena Dumont MD 11/03/2015 Office visit Sundeep Russell CL[facility] WINDER 10/20/2015 Office visit Kaylynn Walker [employer] WINDER 09/23/2015 Office visit Kaylynn Walker CLOTH WINDER 09/16/[address] Pepe Figueroa MD 09/02/2015 Office visit Kaylynn Walker [employer] WINDER 09/01/2015 Office visit Kaylynn Walker [employer] WINDER 07/30/2015 Office visit Heena Dumont MD 07/15/2015 Office visit Kaylynn Mendez CL[facility] WINDER 07/04/2015 Office visit Heena Dumont MD 06/06/2015 Office visit Heena Dumont MD 06/06/2015 Office visit Kaylynn Mendez CL[employer] WINDER 06/02/2015 Office visit Kaylynn Walker CLOTH WINDER 05/26/2015 Office visit Kaylynn Walker CLOTH WINDER 05/20/2015 Office visit Kaylynn Mendez CLOTH WINDER 05/08/2015 Office visit Heena Dumont MD 05/06/2015 Office visit Kaylynn Mendez CLOTH WINDER 04/29/2015 Office visit Kaylynn Mendez CL[employer] WINDER 03/27/2015 Voided Brittni Yanez CL[facility] WINDER 03/21/2015 Office visit Heena Dumont MD 03/12/2015 Office visit Kaylynn Mendez CLOTH WINDER 02/26/2015 Office visit Brittni Yanez CLOTH WINDER 02/13/2015 Office visit Heena Dumont MD 01/15/2015 Office visit Brittni Yanez CL[facility] WINDER 01/13/2015 Office visit Heena Dumont MD 01/08/[address] Carol Fowler MD 01/01/2015 Office visit Brittni Yanez [employer] WINDER 12/13/2014 Office visit Heena Dumont MD 11/27/2014 Office visit Kaylynn Mendez [employer] WINDER 11/14/2014 Office visit Heena Dumont MD 10/18/2014 Office visit Heena Dumont MD 10/17/2014 [facility] John Hoskins MD 10/09/2014 Office visit Heena Dumont MD 09/25/2014 Office visit Heena Dumont MD 09/17/2014 Office visit Kaylynn Mendez CL[employer] WINDER 09/04/2014 Office visit Heena Dumont MD 08/28/2014 Office visit Kaylynn Mendez CL[employer] WINDER 08/23/2014 [facility] John Hoskins MD 08/01/2014 Office visit Kaylynn Mendez CL[employer] WINDER 07/29/2014 Office visit Heena Dumont MD 07/25/2014 Nurse visit Heena Dumont MD 07/17/2014 Office visit Kaylynn Mendez [employer] W[employer]ER 07/11/2014 Office visit Heena Dumont MD 07/01/2014 Office visit Heena Dumont MD 06/25/2014 Office visit Kaylynn Mendez [employer] WINDER 06/12/2014 Office visit Kaylynn Mendez CL[employer] WINDER 06/06/2014 Office visit Kaylynn Mendez CL[employer] WINDER 05/27/2014 Office visit Heena Dumont MD 04/20/2014 Office visit Yesica Falcon CL[facility] WINDER 03/29/2014 Office visit Na Jones CL[facility] WINDER 03/15/2014 Office visit Heena Dumont MD 2014 Office visit Heena Dumont MD 2014 [facility] John Hoskins MD 02/27/2014 Nurse visit Heena Dumont MD 02/13/2014 Office visit Lena El CL[facility] WINDER 02/07/2014 Office visit Heena Dumont MD 02/03/2014 Office visit Na Jones CLOTH WINDER 01/30/2014 Office visit Kaylynn Mendez CL[facility] WINDER 01/24/2014 Office visit Sundeep Russell CLOTH WINDER 01/16/2014 Office visit Kaylynn Mendez CLOTH WINDER 01/10/2014 Nurse visit Kaylynn Mendez CL[facility] WINDER 01/08/2014 Office visit Kaylynn Walker [employer] WINDER 12/05/2013 Office visit Kaylynn Mendez CLOTH WINDER 11/21/2013 Office visit Kaylynn Mendez CLOTH WINDER 10/23/2013 Office visit Brittni Yanez CL[facility] WINDER 10/17/2013 Nurse visit Heena Dumont MD 10/12/2013 Office visit Kaylynn Mendez CL[employer] WINDER 10/02/2013 Office visit Heena Dumont MD 09/20/2013 Nurse visit Kaylynn Mendez [employer] WINDER 09/20/2013 Voided Heena Dumont MD 09/14/2013 Office visit Kaylynn Mendez CL[employer] WINDER 09/05/2013 Office visit Sundeep Russell CLOTH WINDER 09/04/2013 Nurse visit Kaylynn Mendez CLOTH WINDER 08/31/2013 Office visit Kaylynn Mendez CLOTH WINDER 08/23/2013 Office visit Heena Dumont MD 08/10/2013 Office visit Kaylynn Mendez CL[employer] WINDER 07/25/2013 Office visit Kaylynn Mendez CLOTH WINDER 07/18/2013 Office visit Kaylynn Walker CL[employer] WINDER 07/12/2013 Office visit Kaylynn Walker CL[facility] WINDER 06/28/2013 Nurse visit Kaylynn Walker CL[employer] WINDER 06/14/2013 Nurse visit Kaylynn Walker CLOTH WINDER 06/08/2013 Nurse visit Kaylynn Walker CLOTH WINDER 05/31/2013 Nurse visit Chadd Norris DO 05/18/2013 Office visit Terese Davidson MD 05/16/2013 Office visit Kaylynn Walker CL[facility] WINDER 05/09/2013 Office visit Kaylynn Walker CLOTH WINDER 04/29/2013 [facility] John Hoskins MD 04/25/2013 Nurse visit Kaylynn Walker CLOTH WINDER 04/17/2013 Office visit Kaylynn Walker CLOTH WINDER 04/03/2013 Nurse visit Kaylynn Walker CLOTH WINDER 04/03/2013 Office visit Terese Davidson MD 03/28/2013 Office visit Sundeep Russell CLOTH WINDER 03/21/2013 Office visit Kaylynn Walker CLOTH WINDER 03/20/2013 Office visit Terese Davidson MD 03/14/2013 Nurse visit Kaylynn Walker CL[employer] WINDER 03/05/2013 Nurse visit Kaylynn Walker CL[employer] WINDER 02/19/2013 Office visit Terese Davidson MD 02/16/2013 Nurse visit Kaylynn Walker CL[employer] WINDER 02/09/2013 Office visit Sundeep Russell CLOTH WINDER 02/08/2013 Nurse visit Kaylynn Walker CLOTH WINDER 02/01/2013 Nurse visit Kaylynn Walker CL[employer] WINDER 01/26/2013 Nurse visit Sabrina Mendez PANTOMIMIST 01/25/2013 Office visit Kaylynn Walker [employer] WINDER 01/22/2013 Office visit Yoan Castaneda MD 01/18/2013 Nurse visit Kaylynn Walker CL[employer] WINDER 01/11/2013 Nurse visit Kaylynn Walker CLOTH WINDER 01/05/2013 Nurse visit Kaylynn Walker CL[employer] WINDER 12/29/2012 Office visit Kaylynn Walker CL[employer] WINDER 11/27/2012 Office visit Kaylynn Mendez CLOTH WINDER 11/08/2012 Office visit Odell Tierney MD 11/08/2012 Voided Odell Tierney MD 11/07/2012 Office visit Kaylynn Walker CL[employer] WINDER 10/31/2012 [facility] John Hoskins MD 10/31/2012 Office visit Kaylynn Walker CL[employer] WINDER 10/19/2012 Office visit Genoveva Ayala CL[facility] WINDER 10/10/2012 Office visit Kaylynn Walker CL[facility] WINDER 10/03/2012 Office visit Kaylynn Walker CL[facility] WINDER 09/26/2012 Office visit Kaylynn Walker CL[employer] WINDER 09/06/2012 Office visit Kaylynn Walker CL[employer] WINDER 09/06/2012 Office visit Odell Tierney MD 08/31/2012 Voided Kaylynn Mendez CL[facility] WINDER 07/28/2012 Office visit Kaylynn Andrea CL[facility] WINDER 07/27/2012 Office visit David Ar DO 07/20/2012 Hospital David Joyner DO 07/13/2012 Hospital Advid Ar DO 07/11/2012 Office visit Kaylynn Mendez CL[facility] WINDER 06/27/2012 [facility] Odell Tierney MD 06/21/2012 Office visit David Joyner DO 06/21/2012 Office visit Odell Tierney MD 06/20/2012 Office visit Brittni Yanez CL[facility] WINDER 06/06/2012 Office visit Odell Tierney MD 05/03/2012 Office visit Kaylynn Mendez CL[facility] WINDER 04/28/2012 Office visit Brittni Yanez CLOTH WINDER 04/11/2012 Office visit Kaylynn Mendez CLOTH WINDER 04/06/2012 Hospital John Hoskins MD 03/30/2012 Office visit Kaylynn Mendez CLOTH WINDER 03/15/2012 Office visit Kaylynn Mendez CLOTH WINDER 03/15/2012 Office visit Odell Tierney MD 02/09/2012 Office visit Kaylynn Mendez CL[facility] WINDER 12/23/2011 Office visit Kaylynn Mendez CLOTH WINDER 11/02/2011 Office visit Kaylynn Mendez CLOTH WINDER 10/14/2011 Office visit Kaylynn Mendez CLOTH WINDER 09/27/2011 Office visit Kaylynn Mendez CLOTH WINDER 08/19/2011 Hospital John Hoskins MD 08/18/2011 Hospital John Hoskins MD 08/18/2011 Office visit Kaylynn Mendez CLOTH WINDER 08/02/2011 Office visit Kaylynn Mendez CLOTH WINDER 07/08/2011 Office visit Kaylynn Mendez CLOTH WINDER 07/05/2011 Office visit Odell Tierney MD 06/15/2011 Office visit Kaylynn Mendez CL[facility] WINDER 05/14/2011 Office visit Kaylynn Mendez CL[facility] WINDER 05/11/2011 Office visit Odell Tierney MD 04/28/2011 Office visit Kaylynn Mendez CL[facility] WINDER 03/02/2011 Office visit Chadd Norris DO [...]
--- OUTSIDE RECORDS SUMMARY | 2018-05-09 20:33 | XMS REPORT ---
Author Author Kaylynn Mendez Organization [facility] Address [address] [place], [place] [id number] Care Team Providers Care Leverman Name Role Phone Kaylynn Mendez PCP Unavailable Allergies and Adverse Reactions Name Reaction Notes Aspirin Methadone Ultram Vicodin Plan of Treatment Planned Activity Comments Planned Date Planned Time Plan/Goal CINE/VID X-RAY THROAT/ESOPH 05/08/2015 12:00 AM DXA BONE DENSITY AXIAL 06/02/2015 12:00 AM ELECTROCARDIOGRAM COMPLETE 10/31/2012 12:00 AM [...] 08/27/2014 use as directed for 99 days [place] 5-325 mg oral tablet 06/17/2014 06/27/2014 take [...] a day as needed for 30 days ljqxswat-yitlbsyqe-OX 3.5-10,000-1 mg/mL-unit/mL-% otic drops,suspension 201401/08/2015 instill 4 [...] to exceed 30 mL in 24 hours Tesmaylinon Perles 100 mg oral capsule 04/30/2013 05/18/2013 [...] 12:00 AM X-RAY EXAM OF FOOT Returned 04/28/2011 12:00 AM THER/PROPH/DIAG INJ SC/IM Reviewed 04/28/2011 12:00 AM Decadron 1 mg [facility]#[id number] (Jr) Reviewed 04/28/2011 12:00 AM Depo-Medrol 80 mg ND#[id number]-Cbgccaxf Reviewed 05/11/2011 12:00 AM N BLOCK INJ OCCIPITAL Reviewed 05/11/2011 12:00 AM Kenalog Eh-[address]-20 ANNA Reviewed 06/15/2011 12:00 AM COMPLETE CBC W/AUTO DIFF WBC Returned 06/15/2011 12:00 AM COMPREHEN METABOLIC PANEL Returned 07/08/2011 12:00 AM THER/PROPH/DIAG INJ SC/IM Reviewed 07/08/2011 12:00 AM Toradol,15mg ND#[id number], [place] Reviewed 07/08/2011 12:00 AM Phenergan 50 Mg Im Nd 6159-9495-68 ALLIE Hoskins Reviewed 08/02/2011 12:00 AM THER/PROPH/DIAG INJ SC/IM Reviewed 08/02/2011 12:00 AM Decadron 1 mg NDC#[id number] (Jr) Reviewed 08/02/2011 12:00 AM Depo-Medrol 80 mg N[facility]#[id number]-Hcahflqd Reviewed 09/27/2011 12:00 AM THER/PROPH/DIAG INJ SC/IM Reviewed 09/27/2011 12:00 AM Depo-Medrol 80 mg NDC#[id number]-Zogdkths Reviewed 10/14/2011 12:00 AM X-RAY EXAM OF ABDOMEN Returned 10/14/2011 12:00 AM URINALYSIS AUTO W/O SCOPE Reviewed 12/23/2011 12:00 AM THER/PROPH/DIAG INJ SC/IM Reviewed 12/23/2011 12:00 AM Decadron 1 mg [facility]#[id number] (Jr) Reviewed 12/23/2011 12:00 AM Depo-Medrol 80 mg NDC#[id number]-Diisahgb Reviewed 02/09/2012 12:00 AM THER/PROPH/DIAG INJ SC/IM Reviewed 02/09/2012 12:00 AM Decadron 1 mg [facility]#[id number] (Jr) Reviewed 02/09/2012 12:00 AM Depo-Medrol 80 mg NDC#[id number]-Crzxlwyy Reviewed 03/15/2012 12:00 AM N BLOCK INJ OCCIPITAL Reviewed 03/15/2012 12:00 AM Kenalog Nl-[address]-20 ANNA Reviewed 04/11/2012 12:00 AM COMPLETE CBC W/AUTO DIFF WBC Returned 04/11/2012 12:00 AM COMPREHEN METABOLIC PANEL Returned 04/11/2012 12:00 AM LIPID PANEL Returned 04/11/2012 12:00 AM ASSAY THYROID STIM HORMONE Returned 06/20/2012 12:00 AM THER/PROPH/DIAG INJ SC/IM Reviewed 06/20/2012 12:00 AM Decadron, Per 1 Mg NDC# [address]-35 Reviewed 06/20/2012 12:00 AM Depo-Medrol, Per 80 Mg NDC#6534-7043-67 Reviewed 09/06/2012 12:00 AM N BLOCK INJ OCCIPITAL Reviewed 09/06/2012 12:00 AM Kenalog Ma-[address]-20 ANNA Reviewed 09/06/2012 12:00 AM X-RAY EXAM RIBS UNI 2 VIEWS Returned 09/26/2012 12:00 AM THER/PROPH/DIAG INJ SC/IM Reviewed 09/26/2012 12:00 AM Decadron, Per 1 Mg [facility]# [address]-80 Reviewed 09/26/2012 12:00 AM Depo-Medrol, Per 80 Mg [facility]#0940-9850-57 Reviewed 10/03/2012 12:00 AM URINALYSIS AUTO W/O SCOPE Reviewed 10/03/2012 12:00 AM THER/PROPH/DIAG INJ SC/IM Reviewed 10/03/2012 12:00 AM Toradol 60 Mg [facility]#0445-5970-86 Reviewed 10/03/2012 12:00 AM Phenergan, 25Mg [facility]#9978-6481-55 Reviewed 10/19/2012 12:00 AM N BLOCK INJ OCCIPITAL Reviewed 10/19/2012 12:00 AM Kenalog, Per 10 Mg [facility]#2619-[address]255-98 Reviewed 10/19/2012 12:00 AM Toradol 30 Mg [facility]#6209-9157-61 Reviewed 10/19/2012 12:00 AM THER/PROPH/DIAG INJ SC/IM Reviewed 10/31/2012 12:00 AM COMPLETE CBC W/AUTO DIFF WBC Returned 10/31/2012 12:00 AM COMPREHEN METABOLIC PANEL Returned 10/31/2012 12:00 AM LIPID PANEL Returned 11/03/2012 12:[address] THORAX W/O & W/DYE Returned 11/08/2012 12:00 AM N BLOCK INJ OCCIPITAL Reviewed 11/08/2012 12:00 AM Kenalog Bt-[address]-20 ANNA Reviewed 11/27/2012 12:00 AM COMPLETE CBC [...] 01/25/2013 12:00 AM Decadron, Per 1 Mg [facility]# [address]-77 Reviewed 01/25/2013 12:00 AM Depo-Medrol, Per 80 Mg [facility]#9722-8183-95 Reviewed 01/26/2013 12:00 AM IMMUNOTHERAPY INJECTIONS Returned [...] 05/16/2013 12:00 AM Decadron, Per 1 Mg [facility]# [address]-64 Reviewed 05/16/2013 12:00 AM Depo-Medrol, Per 80 Mg [facility]#8023-9448-64 Reviewed 05/31/2013 12:00 AM IMMUNOTHERAPY INJECTIONS Reviewed 06/08/2013 12:00 AM IMMUNOTHERAPY INJECTIONS Reviewed 06/14/2013 12:00 AM IMMUNOTHERAPY INJECTIONS Reviewed 06/28/2013 12:00 AM IMMUNOTHERAPY INJECTIONS Reviewed 07/12/2013 12:00 AM X-RAY EXAM RIBS UNI 2 VIEWS Returned 07/18/2013 12:00 AM Toradol 60 Mg [facility]#8190-5818-23 Reviewed 07/18/2013 12:00 AM THER/PROPH/DIAG INJ SC/IM Reviewed 08/23/2013 12:00 AM COMPLETE CBC W/AUTO DIFF WBC Reviewed 08/23/2013 12:00 AM COMPREHEN METABOLIC PANEL Reviewed 08/23/2013 12:00 AM LIPID PANEL Reviewed 08/31/2013 12:00 AM X-RAY EXAM OF LOWER LEG Returned 09/04/2013 12:00 AM IMMUNOTHERAPY INJECTIONS Reviewed 09/14/2013 12:00 AM THER/PROPH/DIAG INJ SC/IM Reviewed 09/14/2013 12:00 AM Decadron, Per 1 Mg [facility]# [address]-53 Reviewed 09/14/2013 12:00 AM Depo-Medrol, Per 80 Mg [facility]#9943-5582-18 Reviewed 09/20/2013 12:00 AM IMMUNOTHERAPY INJECTIONS Reviewed [...] INJ OCCIPITAL Reviewed 12/10/2009 12:00 AM Kenalog Zd-[address]-20 ANNA Reviewed 12/16/2009 12:00 AM HIV-1ANTIBODY Reviewed 12/16/2009 12:00 AM COMPLETE CBC W/AUTO DIFF WBC Reviewed 12/16/2009 12:00 AM METABOLIC PANEL TOTAL CA Reviewed 12/16/2009 12:00 AM Type and screen Reviewed 12/16/2009 12:00 AM PROTHROMBIN TIME Reviewed 12/16/2009 12:00 AM THROMBOPLASTIN TIME PARTIAL Reviewed 03/18/2010 12:00 AM DRAIN/INJ JOINT/BURSA W/O US Reviewed 03/18/2010 12:00 AM Kenalog Yg-[address]-20 ANNA Reviewed 11/21/2013 12:00 AM RADEX HAND MINIMUM 3 VIEWS Returned 06/03/2010 12:00 AM INJ TRIGGER POINT 1/2 MUSCL Reviewed 06/03/2010 12:00 AM Kenalog per 10Mg [facility]#[address]-27(Niall) Reviewed 12/05/2013 12:00 AM COMPLETE CBC W/AUTO [...] 07/23/2010 12:00 AM Kenalog per 10Mg [facility]#[address]-96(Niall) Reviewed 2014 12:00 AM COMPLETE CBC W/AUTO [...] INJ OCCIPITAL Reviewed 10/01/2010 12:00 AM Quentin Qb-[address]-20 ANNA Reviewed 07/25/2014 12:00 AM THER/PROPH/DIAG INJ [...] 0.60 mg/dLCALCIUM 10.90 mg/ dLeGFR >60 mL/min/1.73 [id number] 45.0 U/L 08/31/2013 10:54 AM GLUCOSE 255.0 [...] 0.40 mg/ dLCALCIUM 10.60 mg/dLeGFR >60 mL/min/1.73 [id number] 369.0 mg/ dLCHOLESTEROL 153.0 mg/dLHDL 26.0 mg/dLLDL [...] BILI 0.30 mg/dLCALCIUM 10.0 mg/dLeGFR >60 mL/min/1.73 q0TAGUD YELLOW APPEARANCE CLEAR SPEC GRAV 1.010 pH [...] Not Entered 03/31/2011 05/30/2015 141 Influenza 04/24/2014 [facility] Fluzone [id number] Intramuscular Left Upper Arm 02/27/2014 01/15/2014 141 Influenza 02/13/2015 [facility] Fluzone [id number] Intramuscular Left Deltoid 02/13/2015 01/03/2015 140 History [...] fractures of bone Jun 02 2015 4:29PM Payers Insurance Name Company Name Plan Name Plan Number Policy Number Policy Group Number Start Date Medicare Part A Medicare Part A [id number] N/A [facility] Comm [id number] N/A [place] [employer] - [facility] [id number] May [facility] Comm Plan of [id number] Wednesday, 2012 Medicare Part B Medicare [facility] [id number] Monday, 2000 [place] [employer] [place] [employer]g [id number] Tuesday, 2009 History of Encounters Visit Date Visit Type Provider 06/02/2015 Office visit Kaylynn Mendez APRN 05/26/2015 Office visit Kaylynn Mendez APRN 05/20/2015 Office visit Kaylynn Mendez APRN 05/08/2015 Office visit Heena Dumont MD 05/06/2015 Office visit Kaylynn Mendez APRN 04/29/2015 Office visit Kaylynn Mendez APRN 03/27/2015 Voided Brittni Yanez FURNITURE BUILDER 03/21/2015 Office visit Heena Dumont MD 03/12/2015 Office visit Kaylynn Mendez FURNITURE BUILDER 02/26/2015 Office visit Brittni Yanez FURNITURE BUILDER 02/13/2015 Office visit Heena Dumont MD 01/15/2015 Office visit Brittni Yanez FURNITURE BUILDER 01/13/2015 Office visit Heena Dumont MD 01/08/[address] Carol Fowler MD 01/01/2015 Office visit Brittni Yanez FURNITURE BUILDER 12/13/2014 Office visit Heena Dumont MD 11/27/2014 Office visit Kaylynn Mendez FURNITURE BUILDER 11/14/2014 Office visit Heena Dumont MD 10/18/2014 Office visit Heena Dumont MD 10/17/2014 [facility] John Hoskins MD 10/09/2014 Office visit Heena Dumont MD 09/25/2014 Office visit Heena Dumont MD 09/17/2014 Office visit Kaylynn Mendez FURNITURE BUILDER 09/04/2014 Office visit Heena Dumont MD 08/28/2014 Office visit Kaylynn Mendez FURNITURE BUILDER 08/23/2014 [facility] John Hoskins MD 08/01/2014 Office visit Kaylynn Mendez FURNITURE BUILDER 07/29/2014 Office visit Heena Dumont MD 07/25/2014 Nurse visit Heena Dumont MD 07/17/2014 Office visit Kaylynn Mendez FURNITURE BUILDER 07/11/2014 Office visit Heena Dumont MD 07/01/2014 Office visit Heena Dumont MD 06/25/2014 Office visit Kaylynn Mendez FURNITURE BUILDER 06/12/2014 Office visit Kaylynn Mendez FURNITURE BUILDER 06/06/2014 Office visit Kaylynn Mendez FURNITURE BUILDER 05/27/2014 Office visit Heena Dumont MD 04/20/2014 Office visit Yesica Falcon FURNITURE BUILDER 03/29/2014 Office visit Na Jones FURNITURE BUILDER 03/15/2014 Office visit Heena Dumont MD 2014 Office visit Heena Dumont MD 2014 [facility] John Hoskins MD 02/27/2014 Nurse visit Heena Dumont MD 02/13/2014 Office visit Lena El FURNITURE BUILDER 02/07/2014 Office visit Heena Dumont MD 02/03/2014 Office visit Na Jones FURNITURE BUILDER 01/30/2014 Office visit Kaylynn Walker FURNITURE BUILDER 01/24/2014 Office visit Sundeep Russell FURNITURE BUILDER 01/16/2014 Office visit Kaylynn Walker FURNITURE BUILDER 01/10/2014 Nurse visit Kaylynn Walker FURNITURE BUILDER 01/08/2014 Office visit Kaylynn Walker FURNITURE BUILDER 12/05/2013 Office visit Kaylynn Walker FURNITURE BUILDER 11/21/2013 Office visit Kaylynn Walker FURNITURE BUILDER 10/23/2013 Office visit Brittni Yanez FURNITURE BUILDER 10/17/2013 Nurse visit Heena Dumont MD 10/12/2013 Office visit Kaylynn Walker FURNITURE BUILDER 10/02/2013 Office visit Heena Dumont MD 09/20/2013 Nurse visit Kaylynn Walker FURNITURE BUILDER 09/20/2013 Voided Heena Dumont MD 09/14/2013 Office visit Kaylynn Walker FURNITURE BUILDER 09/05/2013 Office visit Sundeep Russell FURNITURE BUILDER 09/04/2013 Nurse visit Kaylynn Walker FURNITURE BUILDER 08/31/2013 Office visit Kaylynn Walker FURNITURE BUILDER 08/23/2013 Office visit Heena Dumont MD 08/10/2013 Office visit Kaylynn Walker FURNITURE BUILDER 07/25/2013 Office visit Kaylynn Walker FURNITURE BUILDER 07/18/2013 Office visit Kaylynn Walker FURNITURE BUILDER 07/12/2013 Office visit Kaylynn Walker FURNITURE BUILDER 06/28/2013 Nurse visit Kaylynn Walker FURNITURE BUILDER 06/14/2013 Nurse visit Kaylynn Walker FURNITURE BUILDER 06/08/2013 Nurse visit Kaylynn Walker FURNITURE BUILDER 05/31/2013 Nurse visit Chadd Norris DO 05/18/2013 Office visit Terese Davidson MD 05/16/2013 Office visit Kaylynn Mendez FURNITURE BUILDER 05/09/2013 Office visit Kaylynn Mendez FURNITURE BUILDER 04/29/2013 [facility] Eliseo Hoskins MD 04/25/2013 Nurse visit Kaylynn Walker FURNITURE BUILDER 04/17/2013 Office visit Kaylynn Walker FURNITURE BUILDER 04/03/2013 Nurse visit Kaylynn Walker FURNITURE BUILDER 04/03/2013 Office visit Terese Davidson MD 03/28/2013 Office visit Sundeep Russell FURNITURE BUILDER 03/21/2013 Office visit Kaylynn Mendez FURNITURE BUILDER 03/20/2013 Office visit Terese Davidson MD 03/14/2013 Nurse visit Kaylynn Walker FURNITURE BUILDER 03/05/2013 Nurse visit Kaylynn Mendez FURNITURE BUILDER 02/19/2013 Office visit Terese Davidson MD 02/16/2013 Nurse visit Kaylynn Mendez FURNITURE BUILDER 02/09/2013 Office visit Sundeep Russell FURNITURE BUILDER 02/08/2013 Nurse visit Kaylynn Mendez FURNITURE BUILDER 02/01/2013 Nurse visit Kaylynn Walker FURNITURE BUILDER 01/26/2013 Nurse visit Sabrina Mendez MOTION PICTURE PHOTOGRAPHER 01/25/2013 Office visit Kaylynn Walker FURNITURE BUILDER 01/22/2013 Office visit Yoan Castaneda MD 01/18/2013 Nurse visit Kaylynn Walker FURNITURE BUILDER 01/11/2013 Nurse visit Kaylynn Walker FURNITURE BUILDER 01/05/2013 Nurse visit Kaylynn Walker FURNITURE BUILDER 12/29/2012 Office visit Kaylynn Walker FURNITURE BUILDER 11/27/2012 Office visit Kaylynn Andrea FURNITURE BUILDER 11/08/2012 Office visit Odell Tierney MD 11/08/2012 Voided Odell Tierney MD 11/07/2012 Office visit Kaylynn Andrea FURNITURE BUILDER 10/31/2012 [facility] John Hoskins MD 10/31/2012 Office visit Kaylynn Walker FURNITURE BUILDER 10/19/2012 Office visit Genoveva Ayala FURNITURE BUILDER 10/10/2012 Office visit Kaylynn Walker FURNITURE BUILDER 10/03/2012 Office visit Kaylynn Walker FURNITURE BUILDER 09/26/2012 Office visit Kaylynn Walker FURNITURE BUILDER 09/06/2012 Office visit Kaylynn Mendez FURNITURE BUILDER 09/06/2012 Office visit Odell Tierney MD 08/31/2012 Voided Kaylynn Mendez FURNITURE BUILDER 07/28/2012 Office visit Kaylynn Mendez FURNITURE BUILDER 07/27/2012 Office visit David Joyner DO 07/20/2012 [facility] Advid Botom DO 07/13/2012 [facility] DO 07/11/2012 Office visit Kaylynn Mendez FURNITURE BUILDER 06/27/2012 [facility] Odell Tiernye MD 06/21/2012 Office visit David Joyner DO 06/21/2012 Office visit Odell Tierney MD 06/20/2012 Office visit Brittni Yanez FURNITURE BUILDER 06/06/2012 Office visit Odell Tierney MD 05/03/2012 Office visit Kaylynn Mendez FURNITURE BUILDER 04/28/2012 Office visit Brittni Yanez FURNITURE BUILDER 04/11/2012 Office visit Kaylynn Mnedez FURNITURE BUILDER 04/06/2012 [facility] John Hoskins MD 03/30/2012 Office visit Kaylynn Mendez FURNITURE BUILDER 03/15/2012 Office visit Kaylynn Mendez FURNITURE BUILDER 03/15/2012 Office visit Odell Tierney MD 02/09/2012 Office visit Kaylynn Mendez FURNITURE BUILDER 12/23/2011 Office visit Kaylynn Mendez FURNITURE BUILDER 11/02/2011 Office visit Kaylynn Walker FURNITURE BUILDER 10/14/2011 Office visit Kaylynn Mendez FURNITURE BUILDER 09/27/2011 Office visit Kaylynn Mendez FURNITURE BUILDER 08/19/2011 [facility] Hoskins MD 08/18/2011 [facility] John Hoskins MD 08/18/2011 Office visit Kaylynn Mendez FURNITURE BUILDER 08/02/2011 Office visit Kaylynn Mendez FURNITURE BUILDER 07/08/2011 Office visit Kaylynn Andrea FURNITURE BUILDER 07/05/2011 Office visit Odell Tierney MD 06/15/2011 Office visit Kaylynn Mendez FURNITURE BUILDER 05/14/2011 Office visit Kaylynn Andrea FURNITURE BUILDER 05/11/2011 Office visit Odell Tierney MD 04/28/2011 Office visit Kaylynn Andrea FURNITURE BUILDER 03/02/2011 Office visit Chadd Norris DO 02/17/2011 [...]
--- OUTSIDE RECORDS SUMMARY | 2018-05-09 20:37 | XMS REPORT ---
Author Author Heena Dumont Organization [facility] Address [address] [place], [place] [id number] Care Team Providers Care Senior Procurement Specialist Name Role Phone Heena Dumont PCP Allergies [...] 08/27/2014 use as directed for 99 days [place] oral tablet 5-325 mg 06/17/2014 06/27/2014 take [...] a day as needed for 30 days [id number]-bryaskhqv-PR otic drops,suspension 3.5-10,000-1 mg/mL-unit/mL-% 201401/08/2015 instill 4 [...] the evening changed to crestor Flonase Nasal [place], Suspension 50 mcg/actuation 06/20/2012 10/31/2012 inhale 1 [...] Reviewed 04/28/2011 12:00 AM Decadron 1 mg NDC#[id number] (Jr) Reviewed 04/28/2011 12:00 AM Depo-Medrol 80 mg NDC#[id number]-Ddrkzyww Reviewed 05/11/2011 12:00 AM N BLOCK INJ OCCIPITAL Reviewed 05/11/2011 12:00 AM Kenalog Oo-[address]-20 ANNA Reviewed 06/15/2011 12:00 AM COMPLETE CBC W/AUTO DIFF WBC Returned 06/15/2011 12:00 AM COMPREHEN METABOLIC PANEL Returned 07/08/2011 12:00 AM THER/PROPH/DIAG INJ SC/IM Reviewed 07/08/2011 12:00 AM Toradol,15mg ND#[id number], [place] Reviewed 07/08/2011 12:00 AM Phenergan 50 Mg Im Nd 7407-8791-07 ALLIE Hoskins Reviewed 08/02/2011 12:00 AM THER/PROPH/DIAG INJ SC/IM Reviewed 08/02/2011 12:00 AM Decadron 1 mg NDC#[id number] (Jr) Reviewed 08/02/2011 12:00 AM Depo-Medrol 80 mg NDC#[id number]-Qhfveyka Reviewed 09/27/2011 12:00 AM THER/PROPH/DIAG INJ SC/IM Reviewed 09/27/2011 12:00 AM Depo-Medrol 80 mg NDC#[id number]-Sbmpmxlb Reviewed 09/27/2011 12:00 AM Depo-Medrol 40 mg NDC#[id number] Ordered 10/14/2011 12:00 AM X-RAY EXAM OF ABDOMEN Returned 10/14/2011 12:00 AM URINALYSIS AUTO W/O SCOPE Reviewed 12/23/2011 12:00 AM THER/PROPH/DIAG INJ SC/IM Reviewed 12/23/2011 12:00 AM Decadron 1 mg NDC#[id number] (Jr) Reviewed 12/23/2011 12:00 AM Depo-Medrol 80 mg NDC#[id number]-Larxvbje Reviewed 02/09/2012 12:00 AM THER/PROPH/DIAG INJ SC/IM Reviewed 02/09/2012 12:00 AM Decadron 1 mg NDC#[id number] (Jr) Reviewed 02/09/2012 12:00 AM Depo-Medrol 80 mg NDC#[id number]-Ytygqjie Reviewed 03/15/2012 12:00 AM N BLOCK INJ OCCIPITAL Reviewed 03/15/2012 12:00 AM Kenalog Cj-[address]-20 ANNA Reviewed 04/11/2012 12:00 AM COMPLETE CBC W/AUTO DIFF WBC Returned 04/11/2012 12:00 AM COMPREHEN METABOLIC PANEL Returned 04/11/2012 12:00 AM LIPID PANEL Returned 04/11/2012 12:00 AM ASSAY THYROID STIM HORMONE Returned 04/11/2012 12:00 AM DESTRUCT PREMALG LES 2-14 Ordered 06/20/2012 12:00 AM THER/PROPH/DIAG INJ SC/IM Reviewed 06/20/2012 12:00 AM Decadron, Per 1 Mg ND# [address]-07 Reviewed 06/20/2012 12:00 AM Depo-Medrol, Per 80 Mg ND#4133-0956-11 Reviewed 09/06/2012 12:00 AM N BLOCK INJ OCCIPITAL Reviewed 09/06/2012 12:00 AM Kenalog Gs-[address]-20 ANNA Reviewed 09/06/2012 12:00 AM X-RAY EXAM RIBS UNI 2 VIEWS Returned 09/26/2012 12:00 AM THER/PROPH/DIAG INJ SC/IM Reviewed 09/26/2012 12:00 AM Decadron, Per 1 Mg ND# [address]-51 Reviewed 09/26/2012 12:00 AM Depo-Medrol, Per 80 Mg NDC#9592-4801-77 Reviewed 10/03/2012 12:00 AM URINALYSIS AUTO W/O SCOPE Reviewed 10/03/2012 12:00 AM THER/PROPH/DIAG INJ SC/IM Reviewed 10/03/2012 12:00 AM Toradol 60 Mg NDC#4355-1340-06 Reviewed 10/03/2012 12:00 AM Phenergan, 25Mg [facility]#3618-0981-81 Reviewed 10/19/2012 12:00 AM N BLOCK INJ OCCIPITAL Reviewed 10/19/2012 12:00 AM Kenalog, Per 10 Mg [facility]#8092-6150-33 Reviewed 10/19/2012 12:00 AM Toradol 30 Mg [facility]#2934-3679-91 Reviewed 10/19/2012 12:00 AM THER/PROPH/DIAG INJ SC/IM [...] INJ OCCIPITAL Reviewed 11/08/2012 12:00 AM Kenalog Rl-[address]-20 ANNA Reviewed 11/14/2012 12:00 AM LIVER IMAGING [...] 1 Mg [facility]# [address]-29 Reviewed 01/25/2013 12:00 AM Depo-Medrol, Per 80 Mg [facility]#9795-9798-58 Reviewed 01/26/2013 12:00 AM IMMUNOTHERAPY ONE INJECTION Ordered 01/26/2013 12:00 AM IMMUNOTHERAPY INJECTIONS Returned 02/01/2013 12:00 AM IMMUNOTHERAPY INJECTIONS Reviewed 02/08/2013 12:00 AM IMMUNOTHERAPY INJECTIONS Reviewed 02/16/2013 12:00 AM IMMUNOTHERAPY INJECTIONS Reviewed 02/19/2013 12:00 AM N BLOCK INJ OCCIPITAL Ordered 02/19/2013 12:00 AM Kenalog Tt-[address]-20 ANNA Ordered 03/14/2013 12:00 AM IMMUNOTHERAPY INJECTIONS [...] 1 Mg [facility]# [address]-84 Reviewed 05/16/2013 12:00 AM Depo-Medrol, Per 80 Mg [facility]#3290-0579-68 Reviewed 05/31/2013 12:00 AM IMMUNOTHERAPY INJECTIONS Reviewed 06/08/2013 12:00 AM IMMUNOTHERAPY INJECTIONS Reviewed 06/14/2013 12:00 AM IMMUNOTHERAPY INJECTIONS Reviewed 06/28/2013 12:00 AM IMMUNOTHERAPY INJECTIONS Reviewed 07/12/2013 12:00 AM X-RAY EXAM RIBS UNI 2 VIEWS Returned 07/18/2013 12:00 AM Toradol 60 Mg [facility]#0302-3922-78 Reviewed 07/18/2013 12:00 AM THER/PROPH/DIAG INJ SC/IM [...] 1 Mg [facility]# [address]-92 Reviewed 09/14/2013 12:00 AM Depo-Medrol, Per 80 Mg [facility]#6738-0331-17 Reviewed 09/20/2013 12:00 AM IMMUNOTHERAPY INJECTIONS Reviewed [...] INJ OCCIPITAL Reviewed 12/10/2009 12:00 AM Quentin Ox-[address]-20 ANNA Reviewed 12/16/2009 12:00 AM HIV-1ANTIBODY Reviewed 12/16/2009 12:00 AM COMPLETE CBC W/AUTO DIFF WBC Reviewed 12/16/2009 12:00 AM METABOLIC PANEL TOTAL CA Reviewed 12/16/2009 12:00 AM Type and screen Reviewed 12/16/2009 12:00 AM PROTHROMBIN TIME Reviewed 12/16/2009 12:00 AM THROMBOPLASTIN TIME PARTIAL Reviewed 03/18/2010 12:00 AM DRAIN/INJ JOINT/BURSA W/O US Reviewed 03/18/2010 12:00 AM Quentin Lq-[address]-20 ANNA Reviewed 11/21/2013 12:00 AM RADEX HAND MINIMUM 3 VIEWS Returned 06/03/2010 12:00 AM INJ TRIGGER POINT 1/2 MUSCL Reviewed 06/03/2010 12:00 AM Kenalog per 10Mg Im-[facility]#[address]-75(Niall) Reviewed 12/05/2013 12:00 AM COMPLETE CBC W/AUTO [...] Ordered 06/18/2010 12:00 AM INJ TRIGGER POINT 2 [...] 07/23/2010 12:00 AM Kenalog per 10Mg Im-[facility]#[address]-41(Niall) Reviewed 2014 12:00 AM COMPLETE CBC W/AUTO DIFF WBC Returned 2014 12:00 AM COMPREHEN METABOLIC PANEL Returned 2014 12:00 AM ASSAY OF MAGNESIUM Returned 2014 12:00 AM ELECTROCARDIOGRAM COMPLETE Reviewed 03/29/2014 12:00 AM THER/PROPH/DIAG INJ SC/IM Ordered 03/29/2014 12:00 AM Rocephin 1 gram [facility]#1403-5322-59 Ordered 03/29/2014 12:00 AM THER/PROPH/DIAG INJ SC/IM Ordered 03/29/2014 12:00 AM Decadron, Per 1 Mg [facility]# [address]-61 Ordered 03/29/2014 12:00 AM THER/PROPH/DIAG INJ SC/IM Ordered 03/29/2014 12:00 AM Decadron, Per 1 Mg [facility]# [address]-58 Ordered 03/29/2014 12:00 AM Rocephin 1 gram [facility]#2446-0288-36 Ordered 04/24/2014 12:00 AM INFLUENZA VAC 4 [...] INJ OCCIPITAL Reviewed 10/01/2010 12:00 AM Kenalog Nk-[address]-20 ANNA Reviewed 07/25/2014 12:00 AM THER/PROPH/DIAG INJ [...] 01/08/2015 12:00 AM SPECIMEN HANDLING OFFICE-LAB Ordered 01/15/2015 12:00 AM ENT Consult Reviewed Results [...] 0.60 mg/dLCALCIUM 10.90 mg/ dLeGFR >60 mL/min/1.73 [id number] 45.0 U/L 08/31/2013 10:54 AM GLUCOSE 255.0 [...] 0.40 mg/ dLCALCIUM 10.60 mg/dLeGFR >60 mL/min/1.73 [id number] 369.0 mg/ dLCHOLESTEROL 153.0 mg/dLHDL 26.0 mg/dLLDL [...] BILI 0.30 mg/dLCALCIUM 10.0 mg/dLeGFR >60 mL/min/1.73 [id number] YELLOW APPEARANCE CLEAR SPEC GRAV 1.010 pH [...] 141 Influenza 04/24/2014 sanofi pasteur PMC Fluzone [id number] Intramuscular Left Upper Arm 02/27/2014 01/15/2014 141 [...] Ear pain, bilateral Jan 15 2015 10:56AM Payers Insurance Name Company Name Plan Name Plan Number Policy Number Policy Group Number Start Date Medicare Part A Medicare Part A [id number] N/A [facility] RHC Comm [id number] N/A [place] [employer] [facility] C [id number] May [facility] Comm Plan of [id number] Wednesday, 2012 Medicare Part B Medicare [place] [id number] Monday, 2000 [place] [employer] [place] [employer] [id number] Tuesday, 2009 History of Encounters Visit Date Visit Type Provider 01/15/2015 Office visit Brittni Yanez GLOBAL VP CREATIVE + CONTENT MARKETING 01/13/2015 Office visit Heena Dumont MD 01/08/[address] Carol Fowler MD 01/01/2015 Office visit Brittni Yanez [employer]LO[employer] VP CREATIVE + CONTENT MARKETING 12/13/2014 Office visit Heena Dumont MD 11/27/2014 Office visit Kaylynn Mendez GLOBAL VP CREATIVE + CONTENT MARKETING 11/14/2014 Office visit Heena Dumont MD 10/18/2014 Office visit Heena Dumont MD 10/09/2014 Office visit Heena Dumont MD 09/25/2014 Office visit Heena Dumont MD 09/17/2014 Office visit Kaylynn Mendez GLOBAL VP CREATIVE + CONTENT MARKETING 09/04/2014 Office visit Heena Dumont MD 08/28/2014 Office visit Kaylynn Mendez GLOBAL VP CREATIVE + CONTENT MARKETING 08/23/2014 [facility] John Hoskins MD 08/01/2014 Office visit Kaylynn Walker GLOBAL VP CREATIVE + CONTENT MARKETING 07/29/2014 Office visit Heena Dumont MD 07/25/2014 Nurse visit Heena Dumont MD 07/17/2014 Office visit Kaylynn Mendez GLOBAL VP CREATIVE + CONTENT MARKETING 07/11/2014 Office visit Heena Dumont MD 07/01/2014 Office visit Heena Dumont MD 06/25/2014 Office visit Kaylynn Walker GLOBAL VP CREATIVE + CONTENT MARKETING 06/12/2014 Office visit Kaylynn Walker GLOBAL VP CREATIVE + CONTENT MARKETING 06/06/2014 Office visit Kaylynn Mendez GLOBAL VP CREATIVE + CONTENT MARKETING 05/27/2014 Office visit Heena Dumont MD 04/20/2014 Office visit Yesica Falcon GLOBAL VP CREATIVE + CONTENT MARKETING 03/29/2014 Office visit Na Jones GLOBAL VP CREATIVE + CONTENT MARKETING 03/15/2014 Office visit Heena Dumont MD 2014 Office visit Heena Dumont MD 2014 [facility] John Hoskins MD 02/27/2014 Nurse visit Heena Dumont MD 02/13/2014 Office visit Lena El GLOBAL VP CREATIVE + CONTENT MARKETING 02/07/2014 Office visit Heena Dumont MD 02/03/2014 Office visit Na Jones GLOBAL VP CREATIVE + CONTENT MARKETING 01/30/2014 Office visit Kaylynn Mendez GLOBAL VP CREATIVE + CONTENT MARKETING 01/24/2014 Office visit Sundeep Russell GLOBAL VP CREATIVE + CONTENT MARKETING 01/16/2014 Office visit Kaylynn Mendez GLOBAL VP CREATIVE + CONTENT MARKETING 01/10/2014 Nurse visit Kaylynn Mendez GLOBAL VP CREATIVE + CONTENT MARKETING 01/08/2014 Office visit Kaylynn Walker GLOBAL VP CREATIVE + CONTENT MARKETING 12/05/2013 Office visit Kaylynn Mendez GLOBAL VP CREATIVE + CONTENT MARKETING 11/21/2013 Office visit Kaylynn Walker GLOBAL VP CREATIVE + CONTENT MARKETING 10/23/2013 Office visit Brittni Yanez GLOBAL VP CREATIVE + CONTENT MARKETING 10/17/2013 Nurse visit Heena Dumont MD 10/12/2013 Office visit Kaylynn Mendez GLOBAL VP CREATIVE + CONTENT MARKETING 10/02/2013 Office visit Heena Dumont MD 09/20/2013 Voided Heena Dumont MD 09/20/2013 Nurse visit Kaylynn Walker GLOBAL VP CREATIVE + CONTENT MARKETING 09/14/2013 Office visit Kaylynn Walker GLOBAL VP CREATIVE + CONTENT MARKETING 09/05/2013 Office visit Sundeep Russell GLOBAL VP CREATIVE + CONTENT MARKETING 09/04/2013 Nurse visit Kaylynn Mendez GLOBAL VP CREATIVE + CONTENT MARKETING 08/31/2013 Office visit Kaylynn Mendez GLOBAL VP CREATIVE + CONTENT MARKETING 08/23/2013 Office visit Heena Dumont MD 08/10/2013 Office visit Kaylynn Mendez GLOBAL VP CREATIVE + CONTENT MARKETING 07/25/2013 Office visit Kaylynn Walker GLOBAL VP CREATIVE + CONTENT MARKETING 07/18/2013 Office visit Kaylynn Walker GLOBAL VP CREATIVE + CONTENT MARKETING 07/12/2013 Office visit Kaylynn Walker GLOBAL VP CREATIVE + CONTENT MARKETING 06/28/2013 Nurse visit Kaylynn Walker GLOBAL VP CREATIVE + CONTENT MARKETING 06/14/2013 Nurse visit Kaylynn Walker GLOBAL VP CREATIVE + CONTENT MARKETING 06/08/2013 Nurse visit Kaylynn Walker GLOBAL VP CREATIVE + CONTENT MARKETING 05/31/2013 Nurse visit Chadd Jr PAGAN 05/18/2013 Office visit Terese Davidson MD 05/16/2013 Office visit Kaylynn Walker GLOBAL VP CREATIVE + CONTENT MARKETING 05/09/2013 Office visit Kaylynn Walker GLOBAL VP CREATIVE + CONTENT MARKETING 04/29/2013 [facility] John Hoskins MD 04/25/2013 Nurse visit Kaylynn Walker GLOBAL VP CREATIVE + CONTENT MARKETING 04/17/2013 Office visit Kaylynn Walker GLOBAL VP CREATIVE + CONTENT MARKETING 04/03/2013 Office visit Terese Davidson MD 04/03/2013 Nurse visit Kaylynn Walker GLOBAL VP CREATIVE + CONTENT MARKETING 03/28/2013 Office visit Sundeep Russell GLOBAL VP CREATIVE + CONTENT MARKETING 03/21/2013 Office visit Kaylynn Walker GLOBAL VP CREATIVE + CONTENT MARKETING 03/20/2013 Office visit Terese Davidson MD 03/14/2013 Nurse visit Kaylynn Walker GLOBAL VP CREATIVE + CONTENT MARKETING 03/05/2013 Nurse visit Kaylynn Mendez GLOBAL VP CREATIVE + CONTENT MARKETING 02/19/2013 Office visit Terese Davidson MD 02/16/2013 Nurse visit Kaylynn Walker GLOBAL VP CREATIVE + CONTENT MARKETING 02/09/2013 Office visit Sundeep Russell GLOBAL VP CREATIVE + CONTENT MARKETING 02/08/2013 Nurse visit Kaylynn Walker GLOBAL VP CREATIVE + CONTENT MARKETING 02/01/2013 Nurse visit Kaylynn Walker GLOBAL VP CREATIVE + CONTENT MARKETING 01/26/2013 Nurse visit Sabrina Mendez SPLUNK CONSULTANT 01/25/2013 Office visit Kaylynn Walker GLOBAL VP CREATIVE + CONTENT MARKETING 01/22/2013 Office visit Yoan Castaneda MD 01/18/2013 Nurse visit Kaylynn Walker GLOBAL VP CREATIVE + CONTENT MARKETING 01/11/2013 Nurse visit Kaylynn Walker GLOBAL VP CREATIVE + CONTENT MARKETING 01/05/2013 Nurse visit Kaylynn Walker GLOBAL VP CREATIVE + CONTENT MARKETING 12/29/2012 Office visit Kaylynn Walker GLOBAL VP CREATIVE + CONTENT MARKETING 11/27/2012 Office visit Kaylynn Mendez GLOBAL VP CREATIVE + CONTENT MARKETING 11/08/2012 Voided Odell Tierney MD 11/08/2012 Office visit Odell Tierney MD 11/07/2012 Office visit Kaylynn Walker GLOBAL VP CREATIVE + CONTENT MARKETING 10/31/2012 Office visit Kaylynn Mendez GLOBAL VP CREATIVE + CONTENT MARKETING 10/31/2012 [facility] John Hoskins MD 10/19/2012 Office visit Genoveva Ayala GLOBAL VP CREATIVE + CONTENT MARKETING 10/10/2012 Office visit Kaylynn Mendez GLOBAL VP CREATIVE + CONTENT MARKETING 10/03/2012 Office visit Kaylynn Walker GLOBAL VP CREATIVE + CONTENT MARKETING 09/26/2012 Office visit Kaylynn Mendez GLOBAL VP CREATIVE + CONTENT MARKETING 09/06/2012 Office visit Odell Tierney MD 09/06/2012 Office visit Kaylynn Mendez GLOBAL VP CREATIVE + CONTENT MARKETING 08/31/2012 Voided Kaylynn Mendez GLOBAL VP CREATIVE + CONTENT MARKETING 07/28/2012 Office visit Kaylynn Walker GLOBAL VP CREATIVE + CONTENT MARKETING 07/27/2012 Office visit David Ar DO 07/20/2012 Hospital David Sherifftom DO 07/13/2012 Hospital David Joyner DO 07/11/2012 Office visit Kaylynn Mendez GLOBAL VP CREATIVE + CONTENT MARKETING 06/27/2012 [facility] Odell Tierney MD 06/21/2012 Office visit Odell Tierney MD 06/21/2012 Office visit David Joyner DO 06/20/2012 Office visit Brittni Yanez GLOBAL VP CREATIVE + CONTENT MARKETING 06/06/2012 Office visit Odell Tierney MD 05/03/2012 Office visit Kaylynn Mendez GLOBAL VP CREATIVE + CONTENT MARKETING 04/28/2012 Office visit Brittni Yanez GLOBAL VP CREATIVE + CONTENT MARKETING 04/11/2012 Office visit Kaylynn Mendez GLOBAL VP CREATIVE + CONTENT MARKETING 04/06/2012 [facility] John Hoskins MD 03/30/2012 Office visit Kaylynn Mendez GLOBAL VP CREATIVE + CONTENT MARKETING 03/15/2012 Office visit Odell Tierney MD 03/15/2012 Office visit Kaylynn Mendez GLOBAL VP CREATIVE + CONTENT MARKETING 02/09/2012 Office visit Kaylynn Mendez GLOBAL VP CREATIVE + CONTENT MARKETING 12/23/2011 Office visit Kaylynn Mendez GLOBAL VP CREATIVE + CONTENT MARKETING 11/02/2011 Office visit Kaylynn Mendez GLOBAL VP CREATIVE + CONTENT MARKETING 10/14/2011 Office visit Kaylynn Andrea GLOBAL VP CREATIVE + CONTENT MARKETING 09/27/2011 Office visit Kaylynn Mendez GLOBAL VP CREATIVE + CONTENT MARKETING 08/19/2011 Hospital John Hoskins MD 08/18/2011 Office visit Kaylynn Mendez GLOBAL VP CREATIVE + CONTENT MARKETING 08/18/2011 [facility] John Hoskins MD 08/02/2011 Office visit Kaylynn Mendez GLOBAL VP CREATIVE + CONTENT MARKETING 07/08/2011 Office visit Kaylynn Mendez GLOBAL VP CREATIVE + CONTENT MARKETING 07/05/2011 Office visit Odell Tierney MD 06/15/2011 Office visit Kaylynn Mendez GLOBAL VP CREATIVE + CONTENT MARKETING 05/14/2011 Office visit Kaylynn Mendez GLOBAL VP CREATIVE + CONTENT MARKETING 05/11/2011 Office visit Odell Tierney MD 04/28/2011 Office visit Kaylynn Mendez GLOBAL VP CREATIVE + CONTENT MARKETING 03/02/2011 Office visit Chadd Norris DO 02/17/2011 [...]
--- OUTSIDE RECORDS SUMMARY | 2018-05-09 20:41 | XMS REPORT ---
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 [employer] Tequila Lancets 33 gauge miscellaneous misc 01/21/2016 use as directed Medical Envelope Verio miscellaneous strip 01/21/2016 07/19/2016 Test 2x [...] 08/27/2014 use as directed for 99 days [place] 5-325 mg oral tablet 06/17/2014 06/27/2014 take [...] a day as needed for 30 days [id number] 3.5-10,000-1 mg/mL-unit/mL-% otic drops,suspension 201401/08/2015 instill 4 [...] Reviewed 04/28/2011 12:00 AM Decadron 1 mg NDC#[id number] (Jr) Reviewed 04/28/2011 12:00 AM Depo-Medrol 80 mg NDC#[id number]-Pjooqhxc Reviewed 09/02/2015 12:00 AM Toradol 60 Mg NDC#2530-3546-94 Reviewed 09/02/2015 12:00 AM Phenergan, Up to 50 Mg RHC Medicaid Reviewed 09/16/2015 12:00 AM Toradol 60 Mg NDC#9682-9592-06 Reviewed 09/16/2015 12:00 AM Phenergan Up to 50 mg RHC Medicare Reviewed 05/11/2011 12:00 AM N BLOCK INJ OCCIPITAL Reviewed 05/11/2011 12:00 AM Kenalog Or-[address]-20 ANNA Reviewed 11/13/2015 12:00 AM ASSAY OF [...] INJ SC/IM Reviewed 07/08/2011 12:00 AM Toradol,15mg ND#[id number], Brunildaer Reviewed 07/08/2011 12:00 AM Phenergan 50 Mg Im [facility] 6196-6948-10 [facility] Reviewed 08/02/2011 12:00 AM THER/PROPH/DIAG INJ SC/IM Reviewed 08/02/2011 12:00 AM Decadron 1 mg ND#[id number] (Jr) Reviewed 08/02/2011 12:00 AM Depo-Medrol 80 mg NDC#[id number]-Nqgeseci Reviewed 09/27/2011 12:00 AM THER/PROPH/DIAG INJ SC/IM Reviewed 09/27/2011 12:00 AM Depo-Medrol 80 mg ND#[id number]-Wdibcfxo Reviewed 10/14/2011 12:00 AM X-RAY EXAM OF ABDOMEN Returned 10/14/2011 12:00 AM URINALYSIS AUTO W/O SCOPE Reviewed 12/23/2011 12:00 AM THER/PROPH/DIAG INJ SC/IM Reviewed 12/23/2011 12:00 AM Decadron 1 mg NDC#[id number] (Jr) Reviewed 12/23/2011 12:00 AM Depo-Medrol 80 mg NDC#[id number]-Efegtrta Reviewed 02/09/2012 12:00 AM THER/PROPH/DIAG INJ SC/IM Reviewed 02/09/2012 12:00 AM Decadron 1 mg ND#[id number] (Jr) Reviewed 02/09/2012 12:00 AM Depo-Medrol 80 mg ND#[id number]-Jekqloky Reviewed 03/15/2012 12:00 AM N BLOCK INJ OCCIPITAL Reviewed 03/15/2012 12:00 AM Kenalog Bg-[address]-20 ANNA Reviewed 04/11/2012 12:00 AM COMPLETE CBC W/AUTO DIFF WBC Returned 04/11/2012 12:00 AM COMPREHEN METABOLIC PANEL Returned 04/11/2012 12:00 AM LIPID PANEL Returned 04/11/2012 12:00 AM ASSAY THYROID STIM HORMONE Returned 06/20/2012 12:00 AM THER/PROPH/DIAG INJ SC/IM Reviewed 06/20/2012 12:00 AM Decadron, Per 1 Mg ND# [address]-15 Reviewed 06/20/2012 12:00 AM Depo-Medrol, Per 80 Mg ND#0402-8721-10 Reviewed 09/06/2012 12:00 AM N BLOCK INJ OCCIPITAL Reviewed 09/06/2012 12:00 AM Kenalog Di-907[address]-2003-20 ANNA Reviewed 09/06/2012 12:00 AM X-RAY EXAM RIBS UNI 2 VIEWS Returned 09/26/2012 12:00 AM THER/PROPH/DIAG INJ SC/IM Reviewed 09/26/2012 12:00 AM Decadron, Per 1 Mg ND# [address]-42 Reviewed 09/26/2012 12:00 AM Depo-Medrol, Per 80 Mg ND#3790-4218-98 Reviewed 10/03/2012 12:00 AM URINALYSIS AUTO W/O SCOPE Reviewed 10/03/2012 12:00 AM THER/PROPH/DIAG INJ SC/IM Reviewed 10/03/2012 12:00 AM Toradol 60 Mg ND#2824-2539-02 Reviewed 10/03/2012 12:00 AM Phenergan, 25Mg ND#6600-9529-14 Reviewed 10/19/2012 12:00 AM N BLOCK INJ OCCIPITAL Reviewed 10/19/2012 12:00 AM Kenalog, Per 10 Mg ND#2233-4736-34 Reviewed 10/19/2012 12:00 AM Toradol 30 Mg ND#3917-9227-03 Reviewed 10/19/2012 12:00 AM THER/PROPH/DIAG INJ SC/IM Reviewed 10/31/2012 12:00 AM COMPLETE CBC W/AUTO DIFF WBC Returned 10/31/2012 12:00 AM COMPREHEN METABOLIC PANEL Returned 10/31/2012 12:00 AM LIPID PANEL Returned 11/03/2012 12:[address] THORAX W/O & W/DYE Returned 11/08/2012 12:00 AM N BLOCK INJ OCCIPITAL Reviewed 11/08/2012 12:00 AM Kenalog Pu-[address]-20 ANNA Reviewed 11/27/2012 12:00 AM COMPLETE CBC [...] 12:00 AM Decadron, Per 1 Mg [facility]# [address]-98 Reviewed 01/25/2013 12:00 AM Depo-Medrol, Per 80 Mg [facility]#4816-4103-05 Reviewed 01/26/2013 12:00 AM IMMUNOTHERAPY INJECTIONS Returned [...] 12:00 AM Decadron, Per 1 Mg [facility]# [address]-68 Reviewed 05/16/2013 12:00 AM Depo-Medrol, Per 80 Mg [facility]#4444-3576-64 Reviewed 05/31/2013 12:00 AM IMMUNOTHERAPY INJECTIONS Reviewed 06/08/2013 12:00 AM IMMUNOTHERAPY INJECTIONS Reviewed 06/14/2013 12:00 AM IMMUNOTHERAPY INJECTIONS Reviewed 06/28/2013 12:00 AM IMMUNOTHERAPY INJECTIONS Reviewed 07/12/2013 12:00 AM X-RAY EXAM RIBS UNI 2 VIEWS Returned 07/18/2013 12:00 AM Toradol 60 Mg [facility]#9186-3471-35 Reviewed 07/18/2013 12:00 AM THER/PROPH/DIAG INJ SC/IM Reviewed 08/23/2013 12:00 AM COMPLETE CBC W/AUTO DIFF WBC Reviewed 08/23/2013 12:00 AM COMPREHEN METABOLIC PANEL Reviewed 08/23/2013 12:00 AM LIPID PANEL Reviewed 08/31/2013 12:00 AM X-RAY EXAM OF LOWER LEG Returned 09/04/2013 12:00 AM IMMUNOTHERAPY INJECTIONS Reviewed 09/14/2013 12:00 AM THER/PROPH/DIAG INJ SC/IM Reviewed 09/14/2013 12:00 AM Decadron, Per 1 Mg [facility]# [address]-48 Reviewed 09/14/2013 12:00 AM Depo-Medrol, Per 80 Mg [facility]#1747-1492-63 Reviewed 09/20/2013 12:00 AM IMMUNOTHERAPY INJECTIONS Reviewed [...] INJ OCCIPITAL Reviewed 12/10/2009 12:00 AM Kenalog Zg-[address]-20 ANNA Reviewed 12/16/2009 12:00 AM HIV-1ANTIBODY Reviewed 12/16/2009 12:00 AM COMPLETE CBC W/AUTO DIFF WBC Reviewed 12/16/2009 12:00 AM METABOLIC PANEL TOTAL CA Reviewed 12/16/2009 12:00 AM Type and screen Reviewed 12/16/2009 12:00 AM PROTHROMBIN TIME Reviewed 12/16/2009 12:00 AM THROMBOPLASTIN TIME PARTIAL Reviewed 03/18/2010 12:00 AM DRAIN/INJ JOINT/BURSA W/O US Reviewed 03/18/2010 12:00 AM Kenalog Hm-[address]-20 ANNA Reviewed 11/21/2013 12:00 AM RADEX HAND MINIMUM 3 VIEWS Returned 06/03/2010 12:00 AM INJ TRIGGER POINT 1/2 MUSCL Reviewed 06/03/2010 12:00 AM Kenalog per 10Mg -[facility]#[address]-40(Niall) Reviewed 12/05/2013 12:00 AM COMPLETE CBC W/AUTO [...] AM Kenalog per 10Mg Im-[facility]#[address]-77(Niall) Reviewed 2014 12:00 AM COMPLETE CBC W/AUTO [...] INJ OCCIPITAL Reviewed 10/01/2010 12:00 AM Kenalog Nr-[address]-20 ANNA Reviewed 07/25/2014 12:00 AM THER/PROPH/DIAG INJ [...] 0.60 mg/dLCALCIUM 10.90 mg/ dLeGFR >60 mL/min/1.73 [id number] 45.0 U/L 08/31/2013 10:54 AM GLUCOSE 255.0 [...] 0.40 mg/ dLCALCIUM 10.60 mg/dLeGFR >60 mL/min/1.73 [id number] 369.0 mg/ dLCHOLESTEROL 153.0 mg/dLHDL 26.0 mg/dLLDL [...] BILI 0.30 mg/dLCALCIUM 10.0 mg/dLeGFR >60 mL/min/1.73 e5DTHAA YELLOW APPEARANCE CLEAR SPEC GRAV 1.010 pH 5.5 PROTEIN NEGATIVE GLUCOSE NEGATIVE KETONE NEGATIVE BILIRUBIN NEGATIVE BLOOD NEGATIVE NITRITE NEGATIVE LEUK SCREEN NEGATIVE HGB A1C 6.30 %Est Avg Glucose 134.1 mg/dLMICROALBUMIN UR <0.5 MG/DL 02/13/2015 4:38 PM RMSF, IgG, EIA Negative [facility] [...] 141 Influenza 04/24/2014 sanofi pasteur PMC Fluzone [id number] Intramuscular Left Upper Arm 02/27/2014 01/15/2014 141 Influenza 02/13/2015 sanofi pasteur PMC Fluzone [id number] Intramuscular Left Deltoid 02/13/2015 01/03/2015 140 Tdap [...] Start Date Medicare Part A Medicare RHC [id number] N/A [facility] [id number] N/A Medicare Part A Medicare - Lab/Xray [id number] N/A Medicare Part B Medicare [place] [id number] Monday, February 28, 2000 [place] [facility] [place] [facility] [place] [facility] Assistance Prog [id number] Tuesday, November 10, 2009 Medicare Part A Medicare Part A [id number] N/A [place] 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 Captain Prog - RHC [place] Vessel Captain Prog - RHC [id number] May [facility] [place] [facility] Plan of [id number] Wednesday, May 30, 2012 History of Encounters Visit Date Visit Type Provider 01/16/2016 Office visit Heena Dumont MD 12/16/2015 Office visit Heena Dumont MD 11/24/2015 Office visit Kaylynn Mendez TRUCK CRANE OPERATOR 11/18/2015 Office visit Heena Dumont MD 11/03/2015 Office visit Sundeep Russell TRUCK CRANE OPERATOR 10/20/2015 Office visit Kaylynn Mendez TRUCK CRANE OPERATOR 09/23/2015 Office visit Kaylynn Mendez TRUCK CRANE OPERATOR 09/16/[address] Pepe Figueroa MD 09/02/2015 Office visit Kaylynn Mendez TRUCK CRANE OPERATOR 09/01/2015 Office visit Kaylynn Mendez TRUCK CRANE OPERATOR 07/30/2015 Office visit Heena Dumont MD 07/15/2015 Office visit Kaylynn Mendez TRUCK CRANE OPERATOR 07/04/2015 Office visit Heena Dumont MD 06/06/2015 Office visit Heena Dumont MD 06/06/2015 Office visit Kaylynn Mendez TRUCK CRANE OPERATOR 06/02/2015 Office visit Kaylynn Mendez TRUCK CRANE OPERATOR 05/26/2015 Office visit Kaylynn Mendez TRUCK CRANE OPERATOR 05/20/2015 Office visit Kaylynn Mendez TRUCK CRANE OPERATOR 05/08/2015 Office visit Heena Dumont MD 05/06/2015 Office visit Kaylynn Mendez TRUCK CRANE OPERATOR 04/29/2015 Office visit Kaylynn Mendez TRUCK CRANE OPERATOR 03/27/2015 Voided Brittni Yanez TRUCK CRANE OPERATOR 03/21/2015 Office visit Heena Dumont MD 03/12/2015 Office visit Kaylynn Mendez TRUCK CRANE OPERATOR 02/26/2015 Office visit Brittni Yanez TRUCK CRANE OPERATOR 02/13/2015 Office visit Heena Dumont MD 01/15/2015 Office visit Brittni Yanez TRUCK CRANE OPERATOR 01/13/2015 Office visit Heena Dumont MD 01/08/[address] Carol Fowler MD 01/01/2015 Office visit Brittni Yanez TRUCK CRANE OPERATOR 12/13/2014 Office visit Heena Dumont MD 11/27/2014 Office visit Kaylynn Mendez TRUCK CRANE OPERATOR 11/14/2014 Office visit Heena Dumont MD 10/18/2014 Office visit Heena Dumont MD 10/17/2014 [facility] John Hoskins MD 10/09/2014 Office visit Heena Dumont MD 09/25/2014 Office visit Heena Dumont MD 09/17/2014 Office visit Kaylynn Mendez TRUCK CRANE OPERATOR 09/04/2014 Office visit Heena Dumont MD 08/28/2014 Office visit Kaylynn Mendez TRUCK CRANE OPERATOR 08/23/2014 [facility] John Hoskins MD 08/01/2014 Office visit Kaylynn Mendez TRUCK CRANE OPERATOR 07/29/2014 Office visit Heena Dumont MD 07/25/2014 Nurse visit Heena Dumont MD 07/17/2014 Office visit Kaylynn Mendez TRUCK CRANE OPERATOR 07/11/2014 Office visit Heena Dumont MD 07/01/2014 Office visit Heena Dumont MD 06/25/2014 Office visit Kaylynn Mendez TRUCK CRANE OPERATOR 06/12/2014 Office visit Kaylynn Mendez TRUCK CRANE OPERATOR 06/06/2014 Office visit Kaylynn Mendez TRUCK CRANE OPERATOR 05/27/2014 Office visit Heena Dumont MD 04/20/2014 Office visit Yesica Falcon TRUCK CRANE OPERATOR 03/29/2014 Office visit Na Jones TRUCK CRANE OPERATOR 03/15/2014 Office visit Heena Dumont MD 2014 Office visit Heena Dumont MD 2014 [facility] John Hoskins MD 02/27/2014 Nurse visit Heena Dumont MD 02/13/2014 Office visit Lena El TRUCK CRANE OPERATOR 02/07/2014 Office visit Heena Dumont MD 02/03/2014 Office visit Na Jones TRUCK CRANE OPERATOR 01/30/2014 Office visit Kaylynn Mendez TRUCK CRANE OPERATOR 01/24/2014 Office visit Sundeep Russell TRUCK CRANE OPERATOR 01/16/2014 Office visit Kaylynn Mendez TRUCK CRANE OPERATOR 01/10/2014 Nurse visit Kaylynn Mendez TRUCK CRANE OPERATOR 01/08/2014 Office visit Kaylynn Mendez TRUCK CRANE OPERATOR 12/05/2013 Office visit Kaylynn Mendez TRUCK CRANE OPERATOR 11/21/2013 Office visit Kaylynn Mendez TRUCK CRANE OPERATOR 10/23/2013 Office visit Brittni Yanez TRUCK CRANE OPERATOR 10/17/2013 Nurse visit Heena Dumont MD 10/12/2013 Office visit Kaylynn Mendez TRUCK CRANE OPERATOR 10/02/2013 Office visit Heena Dumont MD 09/20/2013 Nurse visit Kaylynn Mendez TRUCK CRANE OPERATOR 09/20/2013 Voided Heena Dumont MD 09/14/2013 Office visit Kaylynn Walker TRUCK CRANE OPERATOR 09/05/2013 Office visit Sundeep Russell TRUCK CRANE OPERATOR 09/04/2013 Nurse visit Kaylynn Walker TRUCK CRANE OPERATOR 08/31/2013 Office visit Kaylynn Walker TRUCK CRANE OPERATOR 08/23/2013 Office visit Heena Dumont MD 08/10/2013 Office visit Kaylynn Walker TRUCK CRANE OPERATOR 07/25/2013 Office visit Kaylynn Walker TRUCK CRANE OPERATOR 07/18/2013 Office visit Kaylynn Walker TRUCK CRANE OPERATOR 07/12/2013 Office visit Kaylynn Walker TRUCK CRANE OPERATOR 06/28/2013 Nurse visit Kaylynn Walker TRUCK CRANE OPERATOR 06/14/2013 Nurse visit Kaylynn Walker TRUCK CRANE OPERATOR 06/08/2013 Nurse visit Kaylynn Walker TRUCK CRANE OPERATOR 05/31/2013 Nurse visit Chadd Norris DO 05/18/2013 Office visit Terese Davidson MD 05/16/2013 Office visit Kaylynn Walker TRUCK CRANE OPERATOR 05/09/2013 Office visit Kaylynn Mendez TRUCK CRANE OPERATOR 04/29/2013 [facility] John Hoskins MD 04/25/2013 Nurse visit Kaylynn Walker TRUCK CRANE OPERATOR 04/17/2013 Office visit Kaylynn Walker TRUCK CRANE OPERATOR 04/03/2013 Nurse visit Kaylynn Mendez TRUCK CRANE OPERATOR 04/03/2013 Office visit Terese Davidson MD 03/28/2013 Office visit Sundeep Russell TRUCK CRANE OPERATOR 03/21/2013 Office visit Kaylynn Mendez TRUCK CRANE OPERATOR 03/20/2013 Office visit Terese Davidson MD 03/14/2013 Nurse visit Kaylynn Walker TRUCK CRANE OPERATOR 03/05/2013 Nurse visit Kaylynn Mendez TRUCK CRANE OPERATOR 02/19/2013 Office visit Terese Davidson MD 02/16/2013 Nurse visit Kaylynn Mendez TRUCK CRANE OPERATOR 02/09/2013 Office visit Sundeep Russell TRUCK CRANE OPERATOR 02/08/2013 Nurse visit Kaylynn Walker TRUCK CRANE OPERATOR 02/01/2013 Nurse visit Kaylynn Walker TRUCK CRANE OPERATOR 01/26/2013 Nurse visit Sabrina Mendez BELT MACHINE OPERATOR 01/25/2013 Office visit Kaylynn Walker TRUCK CRANE OPERATOR 01/22/2013 Office visit Yoan Castaneda MD 01/18/2013 Nurse visit Kaylynn Walker TRUCK CRANE OPERATOR 01/11/2013 Nurse visit Kaylynn Walker TRUCK CRANE OPERATOR 01/05/2013 Nurse visit Kaylynn Walker TRUCK CRANE OPERATOR 12/29/2012 Office visit Kaylynn Walker TRUCK CRANE OPERATOR 11/27/2012 Office visit Kaylynn Walker TRUCK CRANE OPERATOR 11/08/2012 Office visit Odell Tierney MD 11/08/2012 Voided Odell Tierney MD 11/07/2012 Office visit Kaylynn Mendez TRUCK CRANE OPERATOR 10/31/2012 [facility] John Hoskins MD 10/31/2012 Office visit Kaylynn Mendez TRUCK CRANE OPERATOR 10/19/2012 Office visit Genoveva Ayala TRUCK CRANE OPERATOR 10/10/2012 Office visit Kaylynn Mendez TRUCK CRANE OPERATOR 10/03/2012 Office visit Kaylynn Walker TRUCK CRANE OPERATOR 09/26/2012 Office visit Kaylynn Walker TRUCK CRANE OPERATOR 09/06/2012 Office visit Kaylynn Mendez TRUCK CRANE OPERATOR 09/06/2012 Office visit Odell Tierney MD 08/31/2012 Voided Kaylynn Mendez TRUCK CRANE OPERATOR 07/28/2012 Office visit Kaylynn Mendez TRUCK CRANE OPERATOR 07/27/2012 Office visit David Joyner DO 07/20/2012 Hospital David Joyner DO 07/13/2012 [facility] David Joyner DO 07/11/2012 Office visit Kaylynn Mendez TRUCK CRANE OPERATOR 06/27/2012 Hospital Odell Tierney MD 06/21/2012 Office visit David Joyner DO 06/21/2012 Office visit Odell Tierney MD 06/20/2012 Office visit Brittni Yanez TRUCK CRANE OPERATOR 06/06/2012 Office visit Odell Tierney MD 05/03/2012 Office visit Kaylynn Mendez TRUCK CRANE OPERATOR 04/28/2012 Office visit Brittni Yanez TRUCK CRANE OPERATOR 04/11/2012 Office visit Kaylynn Mendez TRUCK CRANE OPERATOR 04/06/2012 [facility] John Hoskins MD 03/30/2012 Office visit Kaylynn Mendez TRUCK CRANE OPERATOR 03/15/2012 Office visit Kaylynn Mendez TRUCK CRANE OPERATOR 03/15/2012 Office visit Odell Tierney MD 02/09/2012 Office visit Kaylynn Mendez TRUCK CRANE OPERATOR 12/23/2011 Office visit Kaylynn Mendez TRUCK CRANE OPERATOR 11/02/2011 Office visit Kaylynn Mendez TRUCK CRANE OPERATOR 10/14/2011 Office visit Kaylynn Mendez TRUCK CRANE OPERATOR 09/27/2011 Office visit Kaylynn Mendez TRUCK CRANE OPERATOR 08/19/2011 Hospital John Hoskins MD 08/18/2011 Hospital John Hoskins MD 08/18/2011 Office visit Kaylynn Mendez TRUCK CRANE OPERATOR 08/02/2011 Office visit Kaylynn Mendez TRUCK CRANE OPERATOR 07/08/2011 Office visit Kaylynn Mendez TRUCK CRANE OPERATOR 07/05/2011 Office visit Odell Tierney MD 06/15/2011 Office visit Kaylynn Mendez TRUCK CRANE OPERATOR 05/14/2011 Office visit Kaylynn Mendez TRUCK CRANE OPERATOR 05/11/2011 Office visit Odell Tierney MD 04/28/2011 Office visit Kaylynn Mendez TRUCK CRANE OPERATOR 03/02/2011 Office visit Chadd Norris DO 02/17/2011 Office visit Chadd Norris DO 01/19/2011 Office visit Odell Tierney MD 12/16/2010 Office visit Odell Tierney MD 12/02/2010 Office visit Yoan Castaneda MD 11/24/2010 Office visit Chadd Norris DO 11/17/2010 Office visit Chadd Norris DO 10/01/2010 Office visit Odell Tierney MD 09/02/2010 Office visit Odell Tierney MD 08/26/2010 Office visit Odell Tireney MD 07/23/2010 Office visit Odell Tierney MD [...]
--- OUTSIDE RECORDS SUMMARY | 2018-05-09 20:44 | XMS REPORT ---
Author Author Heena Dumont Organization [facility] Address [address] [place] [id number] Care Team Providers Care Clinical Appeals Rn Name Role Phone Heena Dumont PCP Allergies [...] (18 mcg) by inhalation route once daily oxycodone oral tablet 5 mg 10/09/2014 11/08/2014 take 1 tablet by oral route every 12 hours for 30 days carbamazepine oral tablet extended release 12 hr 200 mg 10/18/2014 04/16/2015 take 1 tablet (200 mg) by oral route every 12 hours for 30 days baclofen oral tablet 10 mg 10/18/2014 02/15/2015 1/2 TABLET BY ORAL ROUTE 3 TIMES PER DAY PRN MUSCLE SPASM Name Start Date Expiration [...] 08/27/2014 use as directed for 99 days [place] oral tablet 5-325 mg 06/17/2014 06/27/2014 take [...] the evening changed to crestor Flonase Nasal [place], Suspension 50 mcg/actuation 06/20/2012 10/31/2012 inhale 1 [...] HC BMI BSA BMI Percentile O2 Sat(%) 10/18/2014 11:46:00 AM 120 mmHg 62 mmHg [...] AM CT PELVIS W/O & W/DYE Reviewed 10/18/2014 12:00 AM COMPLETE CBC W/AUTO DIFF WBC Returned 10/18/2014 12:00 AM COMPREHEN METABOLIC PANEL Returned 10/18/2014 12:00 AM GLYCOSYLATED HEMOGLOBIN TEST Returned 10/18/2014 12:00 AM URINALYSIS AUTO W/SCOPE Returned 10/18/2014 12:00 AM MICROALBUMIN QUANTITATIVE Returned 09/25/2014 12:00 AM CLOSTRIDIUM AG EIA Returned [...] 0.60 mg/dLCALCIUM 10.90 mg/ dLeGFR >60 mL/min/1.73 [id number] 45.0 U/L 08/31/2013 10:54 AM GLUCOSE 255.0 [...] 0.40 mg/ dLCALCIUM 10.60 mg/dLeGFR >60 mL/min/1.73 [id number] 369.0 mg/ dLCHOLESTEROL 153.0 mg/dLHDL 26.0 mg/dLLDL [...] BILI 0.30 mg/dLCALCIUM 10.0 mg/dLeGFR >60 mL/min/1.73 [id number] YELLOW APPEARANCE CLEAR SPEC GRAV 1.010 pH [...] 141 Influenza 04/24/2014 sanofi pasteur PMC Fluzone [id number] Intramuscular Left Upper Arm 02/27/2014 01/15/2014 141 History of Past Illness Name Date of Onset Comments Fibromyalgia interstial cysitis Irritable bowel syndrome Insomnia, Migraine Gastroesophageal Reflux Seasonal Allergies Thoracic Spine Pain Bipolar disorder, unspecified Anxiety Anemia Cancer cervical Digestive Headache Gonorrhea Pelvic Inflammatory Disease Urinary Frequency Paulo 14 2010 2:16PM Cystitis, Chronic Interstitial Nov 10 2009 [...] 2014 3:46PM Ankle pain, chronic, left b 12 2014 4:22PM Vertigo Jun 12 2014 4:22PM Eustachian tube dysfunction Aug [...] 2014 11:53AM Hyperlipidemia Oct 18 2014 11:53AM Menopausal Syndrome Oct 18 2014 11:53AM Vaginal Lesion Oct 18 2014 11:53AM Bipolar disorder, unspecified Oct 18 2014 11:53AM Anxiety Oct 18 2014 11:53AM Fibromyalgia Oct 18 2014 11:53AM Gastroesophageal Reflux Oct 18 2014 11:53AM Headache Oct 18 2014 11:53AM Insomnia, Oct 18 2014 11:53AM Irritable bowel syndrome Oct 18 2014 11:53AM Migraine Oct 18 2014 11:53AM Pelvic Inflammatory Disease Oct 18 2014 11:53AM Seasonal Allergies Oct 18 2014 11:53AM Thoracic Spine Pain Oct 18 2014 11:53AM Osteoporosis Oct 18 2014 11:53AM Nausea & vomiting Oct 18 2014 11:53AM Urinary frequency Oct 18 2014 11:53AM Abnormal mental state Oct 18 2014 11:53AM Abnormal blood sugar Oct 18 2014 11:53AM Payers Insurance Name Company Name Plan Name Plan Number Policy Number Policy Group Number Start Date Medicare Part A Medicare Part A [id number] N[facility] [id number] N/A [place] [employer] [facility] [employer] - C [id number] May [employer] Plan of [id number] Wednesday, 2012 Medicare Part B Medicare [place] [id number] Monday, 2000 [place] [employer] [place] [employer] [id number] Tuesday, 2009 History of Encounters Visit Date Visit Type Provider 10/18/2014 Office visit Heena Dumont MD 10/09/2014 Office visit Heena Dumont MD 09/25/2014 Office visit Heena Dumont MD 09/17/2014 Office visit Kaylynn Mendez APRN 09/04/2014 Office visit Heena Dumont MD 08/28/2014 Office visit Kaylynn Mendez COMPENSATION AND BENEFITS ADMINISTRATOR 08/01/2014 Office visit Kaylynn Walker COMPENSATION AND BENEFITS ADMINISTRATOR 07/29/2014 Office visit Heena Dumont MD 07/25/2014 Nurse visit Heena Dumont MD 07/17/2014 Office visit Kaylynn Mendez COMPENSATION AND BENEFITS ADMINISTRATOR 07/11/2014 Office visit Henea Dumont MD 07/01/2014 Office visit Heena Dumont MD 06/25/2014 Office visit Kaylynn Walker COMPENSATION AND BENEFITS ADMINISTRATOR 06/12/2014 Office visit Kaylynn Walker COMPENSATION AND BENEFITS ADMINISTRATOR 06/06/2014 Office visit Kaylynn Andrea COMPENSATION AND BENEFITS ADMINISTRATOR 05/27/2014 Office visit Heena Dumont MD 04/20/2014 Office visit Yesica Falcon COMPENSATION AND BENEFITS ADMINISTRATOR 03/29/2014 Office visit Na Jones COMPENSATION AND BENEFITS ADMINISTRATOR 03/15/2014 Office visit Heena Duomnt MD 2014 Office visit Heena Dumont MD 2014 [facility] Eliseo Hoskins MD 02/27/2014 Nurse visit Heena Dumont MD 02/13/2014 Office visit Lena El COMPENSATION AND BENEFITS ADMINISTRATOR 02/07/2014 Office visit Heena Dumont MD 02/03/2014 Office visit Na Jones COMPENSATION AND BENEFITS ADMINISTRATOR 01/30/2014 Office visit Kaylynn Mendez COMPENSATION AND BENEFITS ADMINISTRATOR 01/24/2014 Office visit Sundeep Russell COMPENSATION AND BENEFITS ADMINISTRATOR 01/16/2014 Office visit Kaylynn Walker COMPENSATION AND BENEFITS ADMINISTRATOR 01/10/2014 Nurse visit Kaylynn Walker COMPENSATION AND BENEFITS ADMINISTRATOR 01/08/2014 Office visit Kaylynn Walker COMPENSATION AND BENEFITS ADMINISTRATOR 12/05/2013 Office visit Kaylynn Walker COMPENSATION AND BENEFITS ADMINISTRATOR 11/21/2013 Office visit Kaylynn Walker COMPENSATION AND BENEFITS ADMINISTRATOR 10/23/2013 Office visit Brittni Yanez COMPENSATION AND BENEFITS ADMINISTRATOR 10/17/2013 Nurse visit Heena Dumont MD 10/12/2013 Office visit Kaylynn Mendez COMPENSATION AND BENEFITS ADMINISTRATOR 10/02/2013 Office visit Heena Dumont MD 09/20/2013 Voided Heena Dumont MD 09/20/2013 Nurse visit Kaylynn Walker COMPENSATION AND BENEFITS ADMINISTRATOR 09/14/2013 Office visit Kaylynn Walker COMPENSATION AND BENEFITS ADMINISTRATOR 09/05/2013 Office visit Sundeep Russell COMPENSATION AND BENEFITS ADMINISTRATOR 09/04/2013 Nurse visit Kaylynn Walker COMPENSATION AND BENEFITS ADMINISTRATOR 08/31/2013 Office visit Kaylynn Walker COMPENSATION AND BENEFITS ADMINISTRATOR 08/23/2013 Office visit Heena Dumont MD 08/10/2013 Office visit Kaylynn Walker COMPENSATION AND BENEFITS ADMINISTRATOR 07/25/2013 Office visit Kaylynn Walker COMPENSATION AND BENEFITS ADMINISTRATOR 07/18/2013 Office visit Kaylynn Walker COMPENSATION AND BENEFITS ADMINISTRATOR 07/12/2013 Office visit Kaylynn Walker COMPENSATION AND BENEFITS ADMINISTRATOR 06/28/2013 Nurse visit Kaylynn Walker COMPENSATION AND BENEFITS ADMINISTRATOR 06/14/2013 Nurse visit Kaylynn Walker COMPENSATION AND BENEFITS ADMINISTRATOR 06/08/2013 Nurse visit Kaylynn Walker COMPENSATION AND BENEFITS ADMINISTRATOR 05/31/2013 Nurse visit Chadd Norris DO 05/18/2013 Office visit Terese Davidson MD 05/16/2013 Office visit Kaylynn Walker COMPENSATION AND BENEFITS ADMINISTRATOR 05/09/2013 Office visit Kaylynn Walker COMPENSATION AND BENEFITS ADMINISTRATOR 04/29/2013 [facility] John Hoskins MD 04/25/2013 Nurse visit Kaylynn Walker COMPENSATION AND BENEFITS ADMINISTRATOR 04/17/2013 Office visit Kaylynn Walker COMPENSATION AND BENEFITS ADMINISTRATOR 04/03/2013 Office visit Terese Davidson MD 04/03/2013 Nurse visit Kaylynn Walker COMPENSATION AND BENEFITS ADMINISTRATOR 03/28/2013 Office visit Sundeep Russell COMPENSATION AND BENEFITS ADMINISTRATOR 03/21/2013 Office visit Kaylynn Mendez COMPENSATION AND BENEFITS ADMINISTRATOR 03/20/2013 Office visit Terese Davidson MD 03/14/2013 Nurse visit Kaylynn Walker COMPENSATION AND BENEFITS ADMINISTRATOR 03/05/2013 Nurse visit Kaylynn Walker COMPENSATION AND BENEFITS ADMINISTRATOR 02/19/2013 Office visit Terese Davidson MD 02/16/2013 Nurse visit Kaylynn Walker COMPENSATION AND BENEFITS ADMINISTRATOR 02/09/2013 Office visit Sundeep Russell COMPENSATION AND BENEFITS ADMINISTRATOR 02/08/2013 Nurse visit Kaylynn Walker COMPENSATION AND BENEFITS ADMINISTRATOR 02/01/2013 Nurse visit Kaylynn Walker COMPENSATION AND BENEFITS ADMINISTRATOR 01/26/2013 Nurse visit Sabrina Andrea CHIPS SCREEN TENDER 01/25/2013 Office visit Kaylynn Walker COMPENSATION AND BENEFITS ADMINISTRATOR 01/22/2013 Office visit Yoan Castaneda MD 01/18/2013 Nurse visit Kaylynn Walker COMPENSATION AND BENEFITS ADMINISTRATOR 01/11/2013 Nurse visit Kaylynn Walker COMPENSATION AND BENEFITS ADMINISTRATOR 01/05/2013 Nurse visit Kaylynn Walker COMPENSATION AND BENEFITS ADMINISTRATOR 12/29/2012 Office visit Kaylynn Walker COMPENSATION AND BENEFITS ADMINISTRATOR 11/27/2012 Office visit Kaylynn Mendez COMPENSATION AND BENEFITS ADMINISTRATOR 11/08/2012 Voided Odell Tierney MD 11/08/2012 Office visit Odell Tierney MD 11/07/2012 Office visit Kaylynn Walker COMPENSATION AND BENEFITS ADMINISTRATOR 10/31/2012 Office visit Kaylynn Walker COMPENSATION AND BENEFITS ADMINISTRATOR 10/31/2012 [facility] John Hoskins MD 10/19/2012 Office visit Genoveva Ayala COMPENSATION AND BENEFITS ADMINISTRATOR 10/10/2012 Office visit Kaylynn Walker COMPENSATION AND BENEFITS ADMINISTRATOR 10/03/2012 Office visit Kaylynn Walker COMPENSATION AND BENEFITS ADMINISTRATOR 09/26/2012 Office visit Kaylynn Walker COMPENSATION AND BENEFITS ADMINISTRATOR 09/06/2012 Office visit Odell Tierney MD 09/06/2012 Office visit Kaylynn Walker COMPENSATION AND BENEFITS ADMINISTRATOR 08/31/2012 Voided Kaylynn Walker COMPENSATION AND BENEFITS ADMINISTRATOR 07/28/2012 Office visit Kaylynn Walker COMPENSATION AND BENEFITS ADMINISTRATOR 07/27/2012 Office visit David Joyner DO 07/20/2012 [facility] David Joyner DO 07/13/2012 Hospital Dvaid Joyner DO 07/11/2012 Office visit Kaylynn Mendez COMPENSATION AND BENEFITS ADMINISTRATOR 06/27/2012 Hospital Odell Tierney MD 06/21/2012 Office visit Odell Tierney MD 06/21/2012 Office visit David Joyner DO 06/20/2012 Office visit Brittni Yanez COMPENSATION AND BENEFITS ADMINISTRATOR 06/06/2012 Office visit Odell Tierney MD 05/03/2012 Office visit Kaylynn Mendez COMPENSATION AND BENEFITS ADMINISTRATOR 04/28/2012 Office visit Brittni Yanez COMPENSATION AND BENEFITS ADMINISTRATOR 04/11/2012 Office visit Kaylynn Mendez COMPENSATION AND BENEFITS ADMINISTRATOR 04/06/2012 Hospital John Hoskins MD 03/30/2012 Office visit Kaylynn Mendez COMPENSATION AND BENEFITS ADMINISTRATOR 03/15/2012 Office visit Odell Tierney MD 03/15/2012 Office visit Kaylynn Mendez COMPENSATION AND BENEFITS ADMINISTRATOR 02/09/2012 Office visit Kaylynn Mendez COMPENSATION AND BENEFITS ADMINISTRATOR 12/23/2011 Office visit Kaylynn Mendez COMPENSATION AND BENEFITS ADMINISTRATOR 11/02/2011 Office visit Kaylynn Mendez COMPENSATION AND BENEFITS ADMINISTRATOR 10/14/2011 Office visit Kaylynn Mendez COMPENSATION AND BENEFITS ADMINISTRATOR 09/27/2011 Office visit Kaylynn Mendez COMPENSATION AND BENEFITS ADMINISTRATOR 08/19/2011 [facility] John Hoskins MD 08/18/2011 Office visit Kaylynn Mendez COMPENSATION AND BENEFITS ADMINISTRATOR 08/18/2011 [facility] John Hoskins MD 08/02/2011 Office visit Kaylynn Mendez COMPENSATION AND BENEFITS ADMINISTRATOR 07/08/2011 Office visit Kaylynn Mendez COMPENSATION AND BENEFITS ADMINISTRATOR 07/05/2011 Office visit Odell Tierney MD 06/15/2011 Office visit Kaylynn Mendez COMPENSATION AND BENEFITS ADMINISTRATOR 05/14/2011 Office visit Kaylynn Mendez COMPENSATION AND BENEFITS ADMINISTRATOR 05/11/2011 Office visit Odell Tierney MD 04/28/2011 Office visit Kaylynn Mendez COMPENSATION AND BENEFITS ADMINISTRATOR 03/02/2011 Office visit Chadd Norris DO 02/17/2011 [...]
--- OUTSIDE RECORDS SUMMARY | 2018-05-09 20:48 | XMS REPORT ---
Author Author Kaylynn Mendez Organization [facility] Address [address] [place], [place] [id number] Care Team Providers Care [employer] Officer Name Role Phone Kaylynn Mendez PCP Unavailable [...] 08/27/2014 use as directed for 99 days Waves 5-325 mg oral tablet 06/17/2014 06/27/2014 take [...] a day as needed for 30 days [id number] 3.5-10,000-1 mg/mL-unit/mL-% otic drops,suspension 201401/08/2015 instill 4 [...] Reviewed 04/28/2011 12:00 AM Decadron 1 mg ND#[id number] (Jr) Reviewed 04/28/2011 12:00 AM Depo-Medrol 80 mg NDC#[id number]-Ipqifijw Reviewed 05/11/2011 12:00 AM N BLOCK INJ OCCIPITAL Reviewed 05/11/2011 12:00 AM Kenalog Cu-[address]-20 ANNA Reviewed 06/15/2011 12:00 AM COMPLETE CBC W/AUTO DIFF WBC Returned 06/15/2011 12:00 AM COMPREHEN METABOLIC PANEL Returned 07/08/2011 12:00 AM THER/PROPH/DIAG INJ SC/IM Reviewed 07/08/2011 12:00 AM Toradol,15mg ND#[id number], Adilene Reviewed 07/08/2011 12:00 AM Phenergan 50 Mg Im Nd 8694-5144-11 ALLIE Hoskins Reviewed 08/02/2011 12:00 AM THER/PROPH/DIAG INJ SC/IM Reviewed 08/02/2011 12:00 AM Decadron 1 mg NDC#[id number] (Jr) Reviewed 08/02/2011 12:00 AM Depo-Medrol 80 mg NDC#[id number]-Zwudzabs Reviewed 09/27/2011 12:00 AM THER/PROPH/DIAG INJ SC/IM Reviewed 09/27/2011 12:00 AM Depo-Medrol 80 mg NDC#[id number]-Gappdqhk Reviewed 10/14/2011 12:00 AM X-RAY EXAM OF ABDOMEN Returned 10/14/2011 12:00 AM URINALYSIS AUTO W/O SCOPE Reviewed 12/23/2011 12:00 AM THER/PROPH/DIAG INJ SC/IM Reviewed 12/23/2011 12:00 AM Decadron 1 mg NDC#[id number] (Jr) Reviewed 12/23/2011 12:00 AM Depo-Medrol 80 mg NDC#[id number]-Uxaslgua Reviewed 02/09/2012 12:00 AM THER/PROPH/DIAG INJ SC/IM Reviewed 02/09/2012 12:00 AM Decadron 1 mg NDC#[id number] (Jr) Reviewed 02/09/2012 12:00 AM Depo-Medrol 80 mg NDC#[id number]-Drlzkmim Reviewed 03/15/2012 12:00 AM N BLOCK INJ OCCIPITAL Reviewed 03/15/2012 12:00 AM Kenalog Mt-[address]-20 ANNA Reviewed 04/11/2012 12:00 AM COMPLETE CBC W/AUTO DIFF WBC Returned 04/11/2012 12:00 AM COMPREHEN METABOLIC PANEL Returned 04/11/2012 12:00 AM LIPID PANEL Returned 04/11/2012 12:00 AM ASSAY THYROID STIM HORMONE Returned 06/20/2012 12:00 AM THER/PROPH/DIAG INJ SC/IM Reviewed 06/20/2012 12:00 AM Decadron, Per 1 Mg ND# [address]-76 Reviewed 06/20/2012 12:00 AM Depo-Medrol, Per 80 Mg NDC#0445-3504-49 Reviewed 09/06/2012 12:00 AM N BLOCK INJ OCCIPITAL Reviewed 09/06/2012 12:00 AM Kenalog Gb-[address]-20 ANNA Reviewed 09/06/2012 12:00 AM X-RAY EXAM RIBS UNI 2 VIEWS Returned 09/26/2012 12:00 AM THER/PROPH/DIAG INJ SC/IM Reviewed 09/26/2012 12:00 AM Decadron, Per 1 Mg NDC# [address]-36 Reviewed 09/26/2012 12:00 AM Depo-Medrol, Per 80 Mg NDC#0404-6084-39 Reviewed 10/03/2012 12:00 AM URINALYSIS AUTO W/O SCOPE Reviewed 10/03/2012 12:00 AM THER/PROPH/DIAG INJ SC/IM Reviewed 10/03/2012 12:00 AM Toradol 60 Mg ND#2466-1607-20 Reviewed 10/03/2012 12:00 AM Phenergan, 25Mg ND#9586-0799-09 Reviewed 10/19/2012 12:00 AM N BLOCK INJ OCCIPITAL Reviewed 10/19/2012 12:00 AM Kenalog, Per 10 Mg ND#4809-3678-41 Reviewed 10/19/2012 12:00 AM Toradol 30 Mg ND#0024-3726-57 Reviewed 10/19/2012 12:00 AM THER/PROPH/DIAG INJ SC/IM Reviewed 10/31/2012 12:00 AM COMPLETE CBC W/AUTO DIFF WBC Returned 10/31/2012 12:00 AM COMPREHEN METABOLIC PANEL Returned 10/31/2012 12:00 AM LIPID PANEL Returned 11/03/2012 12:[address] THORAX W/O & W/DYE Returned 11/08/2012 12:00 AM N BLOCK INJ OCCIPITAL Reviewed 11/08/2012 12:00 AM Kenalog Ze-[address]-20 ANNA Reviewed 11/27/2012 12:00 AM COMPLETE CBC [...] 1 Mg [facility]# [address]-99 Reviewed 01/25/2013 12:00 AM Depo-Medrol, Per 80 Mg [facility]#3864-4165-94 Reviewed 01/26/2013 12:00 AM IMMUNOTHERAPY INJECTIONS Returned [...] 1 Mg [facility]# [address]-81 Reviewed 05/16/2013 12:00 AM Depo-Medrol, Per 80 Mg [facility]#6821-9230-63 Reviewed 05/31/2013 12:00 AM IMMUNOTHERAPY INJECTIONS Reviewed 06/08/2013 12:00 AM IMMUNOTHERAPY INJECTIONS Reviewed 06/14/2013 12:00 AM IMMUNOTHERAPY INJECTIONS Reviewed 06/28/2013 12:00 AM IMMUNOTHERAPY INJECTIONS Reviewed 07/12/2013 12:00 AM X-RAY EXAM RIBS UNI 2 VIEWS Returned 07/18/2013 12:00 AM Toradol 60 Mg [facility]#3965-3296-46 Reviewed 07/18/2013 12:00 AM THER/PROPH/DIAG INJ SC/IM [...] 1 Mg [facility]# [address]-29 Reviewed 09/14/2013 12:00 AM Depo-Medrol, Per 80 Mg [facility]#9961-2233-75 Reviewed 09/20/2013 12:00 AM IMMUNOTHERAPY INJECTIONS Reviewed [...] INJ OCCIPITAL Reviewed 12/10/2009 12:00 AM Kenalog Ot-[address]-20 ANNA Reviewed 12/16/2009 12:00 AM HIV-1ANTIBODY Reviewed 12/16/2009 12:00 AM COMPLETE CBC W/AUTO DIFF WBC Reviewed 12/16/2009 12:00 AM METABOLIC PANEL TOTAL CA Reviewed 12/16/2009 12:00 AM Type and screen Reviewed 12/16/2009 12:00 AM PROTHROMBIN TIME Reviewed 12/16/2009 12:00 AM THROMBOPLASTIN TIME PARTIAL Reviewed 03/18/2010 12:00 AM DRAIN/INJ JOINT/BURSA W/O US Reviewed 03/18/2010 12:00 AM Kenalog Nz-[address]-20 ANNA Reviewed 11/21/2013 12:00 AM RADEX HAND MINIMUM 3 VIEWS Returned 06/03/2010 12:00 AM INJ TRIGGER POINT 1/2 MUSCL Reviewed 06/03/2010 12:00 AM Kenalog per 10Mg [facility]#[address]-95(Niall) Reviewed 12/05/2013 12:00 AM COMPLETE CBC W/AUTO [...] AM Kenalog per 10Mg Im-[facility]#[address]-56(Niall) Reviewed 2014 12:00 AM COMPLETE CBC W/AUTO [...] INJ OCCIPITAL Reviewed 10/01/2010 12:00 AM Kenalog Jj-[address]-20 ANNA Reviewed 07/25/2014 12:00 AM THER/PROPH/DIAG INJ [...] 0.60 mg/dLCALCIUM 10.90 mg/ dLeGFR >60 mL/min/1.73 [id number] 45.0 U/L 08/31/2013 10:54 AM GLUCOSE 255.0 [...] 0.40 mg/ dLCALCIUM 10.60 mg/dLeGFR >60 mL/min/1.73 [id number] 369.0 mg/ dLCHOLESTEROL 153.0 mg/dLHDL 26.0 mg/dLLDL [...] BILI 0.30 mg/dLCALCIUM 10.0 mg/dLeGFR >60 mL/min/1.73 [id number] YELLOW APPEARANCE CLEAR SPEC GRAV 1.010 pH [...] 141 Influenza 04/24/2014 sanofi pasteur PMC Fluzone [id number] Intramuscular Left Upper Arm 02/27/2014 01/15/2014 141 Influenza 02/13/2015 sanofi pasteur PMC Fluzone [id number] Intramuscular Left Deltoid 02/13/2015 01/03/2015 140 History [...] Date Medicare Part A Medicare Part A [id number] N/A [facility] Comm [id number] N/A [employer] [facility] [id number] [facility] Comm Plan of [id number] Wednesday, 2012 Medicare Part B Medicare Of [place] [id number] Monday, 2000 [place] [employer] [place] [employer] [id number] Tuesday, 2009 History of Encounters Visit Date Visit Type Provider 05/20/2015 Office visit Kaylynn Mendez PLASTIC INSTALLER 05/08/2015 Office visit Heena Dumont MD 05/06/2015 Office visit Kaylynn Mendez PLASTIC INSTALLER 04/29/2015 Office visit Kaylynn Mendez PLASTIC INSTALLER 03/27/2015 Voided Brittni Yanez PLASTIC INSTALLER 03/21/2015 Office visit Heena Dumont MD 03/12/2015 Office visit Kaylynn Mendez PLASTIC INSTALLER 02/26/2015 Office visit Brittni Yanez PLASTIC INSTALLER 02/13/2015 Office visit Heena Dumont MD 01/15/2015 Office visit Brittni Yanez PLASTIC INSTALLER 01/13/2015 Office visit Heena Dumont MD 01/08/[address] Carol Fowler MD 01/01/2015 Office visit Brittni Yanez PLASTIC INSTALLER 12/13/2014 Office visit Heena Dumont MD 11/27/2014 Office visit Kaylynn Mendez PLASTIC INSTALLER 11/14/2014 Office visit Heena Dumont MD 10/18/2014 Office visit Heena Dumont MD 10/17/2014 [facility] Eliseo Hoskins MD 10/09/2014 Office visit Heena Dumont MD 09/25/2014 Office visit Heena Dumont MD 09/17/2014 Office visit Kaylynn Mendez PLASTIC INSTALLER 09/04/2014 Office visit Heena Dumont MD 08/28/2014 Office visit Kaylynn Mendez PLASTIC INSTALLER 08/23/2014 [facility] Eliseo Hoskins MD 08/01/2014 Office visit Kaylynn Mendez PLASTIC INSTALLER 07/29/2014 Office visit Heena Dumont MD 07/25/2014 Nurse visit Heena Dumont MD 07/17/2014 Office visit Kaylynn Mendez PLASTIC INSTALLER 07/11/2014 Office visit Heena Dumont MD 07/01/2014 Office visit Heena Dumont MD 06/25/2014 Office visit Kaylynn Mendez PLASTIC INSTALLER 06/12/2014 Office visit Kaylynn Mendez PLASTIC INSTALLER 06/06/2014 Office visit Kaylynn Mendez PLASTIC INSTALLER 05/27/2014 Office visit Heena Dumont MD 04/20/2014 Office visit Yesica Falcon PLASTIC INSTALLER 03/29/2014 Office visit Na Jones PLASTIC INSTALLER 03/15/2014 Office visit Heena Dumont MD 2014 Office visit Heena Dumont MD 2014 [facility] John Hoskins MD 02/27/2014 Nurse visit Heena Dumont MD 02/13/2014 Office visit Lena El PLASTIC INSTALLER 02/07/2014 Office visit Heena Dumont MD 02/03/2014 Office visit Na Jones PLASTIC INSTALLER 01/30/2014 Office visit Kaylynn Mendez PLASTIC INSTALLER 01/24/2014 Office visit Sundeep Russell PLASTIC INSTALLER 01/16/2014 Office visit Kaylynn Mendez PLASTIC INSTALLER 01/10/2014 Nurse visit Kaylynn Mendez PLASTIC INSTALLER 01/08/2014 Office visit Kaylynn Mendez PLASTIC INSTALLER 12/05/2013 Office visit Kaylynn Mendez PLASTIC INSTALLER 11/21/2013 Office visit Kaylynn Mendez PLASTIC INSTALLER 10/23/2013 Office visit Brittni Yanez PLASTIC INSTALLER 10/17/2013 Nurse visit Heena Dumont MD 10/12/2013 Office visit Kaylynn Mendez PLASTIC INSTALLER 10/02/2013 Office visit Heena Dumont MD 09/20/2013 Nurse visit Kaylynn Mendez PLASTIC INSTALLER 09/20/2013 Voided Heena Dumont MD 09/14/2013 Office visit Kaylynn Mendez PLASTIC INSTALLER 09/05/2013 Office visit Sundeep Russell PLASTIC INSTALLER 09/04/2013 Nurse visit Kaylynn Walker PLASTIC INSTALLER 08/31/2013 Office visit Kaylynn Walker PLASTIC INSTALLER 08/23/2013 Office visit Heena Dumont MD 08/10/2013 Office visit Kaylynn Walker PLASTIC INSTALLER 07/25/2013 Office visit Kaylynn Walker PLASTIC INSTALLER 07/18/2013 Office visit Kaylynn Walker PLASTIC INSTALLER 07/12/2013 Office visit Kaylynn Walker PLASTIC INSTALLER 06/28/2013 Nurse visit Kaylynn Walker PLASTIC INSTALLER 06/14/2013 Nurse visit Kaylynn Walker PLASTIC INSTALLER 06/08/2013 Nurse visit Kaylynn Walker PLASTIC INSTALLER 05/31/2013 Nurse visit Chadd Norris DO 05/18/2013 Office visit Terese Davidson MD 05/16/2013 Office visit Kaylynn Walker PLASTIC INSTALLER 05/09/2013 Office visit Kaylynn Walker PLASTIC INSTALLER 04/29/2013 [facility] John Hoskins MD 04/25/2013 Nurse visit Kaylynn Walker PLASTIC INSTALLER 04/17/2013 Office visit Kaylynn Walker PLASTIC INSTALLER 04/03/2013 Nurse visit Kaylynn Walker PLASTIC INSTALLER 04/03/2013 Office visit Terese Davidson MD 03/28/2013 Office visit Sundeep Russell PLASTIC INSTALLER 03/21/2013 Office visit Kaylynn Mendez PLASTIC INSTALLER 03/20/2013 Office visit Terese Davidson MD 03/14/2013 Nurse visit Kaylynn Walker PLASTIC INSTALLER 03/05/2013 Nurse visit Kaylynn Walker PLASTIC INSTALLER 02/19/2013 Office visit Terese Davidson MD 02/16/2013 Nurse visit Kaylynn Walker PLASTIC INSTALLER 02/09/2013 Office visit Sundeep Russell PLASTIC INSTALLER 02/08/2013 Nurse visit Kaylynn Walker PLASTIC INSTALLER 02/01/2013 Nurse visit Kaylynn Walker PLASTIC INSTALLER 01/26/2013 Nurse visit Sabrina Mendez WOOL CARDER 01/25/2013 Office visit Kaylynn Walker PLASTIC INSTALLER 01/22/2013 Office visit Yoan Castaneda MD 01/18/2013 Nurse visit Kaylynn Walker PLASTIC INSTALLER 01/11/2013 Nurse visit Kaylynn Walker PLASTIC INSTALLER 01/05/2013 Nurse visit Kaylynn Walker PLASTIC INSTALLER 12/29/2012 Office visit Kaylynn Walker PLASTIC INSTALLER 11/27/2012 Office visit Kaylynn Walker PLASTIC INSTALLER 11/08/2012 Office visit Odell Tierney MD 11/08/2012 Voided Odell Tierney MD 11/07/2012 Office visit Kaylynn Mendez PLASTIC INSTALLER 10/31/2012 [facility] John Hoskins MD 10/31/2012 Office visit Kaylynn Walker PLASTIC INSTALLER 10/19/2012 Office visit Genoveva Ayala PLASTIC INSTALLER 10/10/2012 Office visit Kaylynn Mendez PLASTIC INSTALLER 10/03/2012 Office visit Kaylynn Andrea PLASTIC INSTALLER 09/26/2012 Office visit Kaylynn Mendez PLASTIC INSTALLER 09/06/2012 Office visit Kaylynn Mendez PLASTIC INSTALLER 09/06/2012 Office visit Odell Tierney MD 08/31/2012 Voided Kaylynn Mendez PLASTIC INSTALLER 07/28/2012 Office visit Kaylynn Mendez PLASTIC INSTALLER 07/27/2012 Office visit David Ar DO 07/20/2012 [facility] David Joyner DO 07/13/2012 [facility] David Joyner DO 07/11/2012 Office visit Kaylynn Mendez PLASTIC INSTALLER 06/27/2012 [facility] Odell Tierney MD 06/21/2012 Office visit David Joyner DO 06/21/2012 Office visit Odell Tierney MD 06/20/2012 Office visit Brittni Yanez PLASTIC INSTALLER 06/06/2012 Office visit Odell Tierney MD 05/03/2012 Office visit Kaylynn Mendez PLASTIC INSTALLER 04/28/2012 Office visit Brittni Yanez PLASTIC INSTALLER 04/11/2012 Office visit Kaylynn Mendez PLASTIC INSTALLER 04/06/2012 [facility] John Hoskins MD 03/30/2012 Office visit Kaylynn Mendez PLASTIC INSTALLER 03/15/2012 Office visit Kaylynn Mendez PLASTIC INSTALLER 03/15/2012 Office visit Odell Tierney MD 02/09/2012 Office visit Kaylynn Mendez PLASTIC INSTALLER 12/23/2011 Office visit Kaylynn Mendez PLASTIC INSTALLER 11/02/2011 Office visit Kaylynn Mendez PLASTIC INSTALLER 10/14/2011 Office visit Kaylynn Andrea PLASTIC INSTALLER 09/27/2011 Office visit Kaylynn Mendez PLASTIC INSTALLER 08/19/2011 [facility] John Hoskins MD 08/18/2011 [facility] John Hoskins MD 08/18/2011 Office visit Kaylynn Mendez PLASTIC INSTALLER 08/02/2011 Office visit Kaylynn Walker PLASTIC INSTALLER 07/08/2011 Office visit Kaylynn Mendez PLASTIC INSTALLER 07/05/2011 Office visit Odell Tierney MD 06/15/2011 Office visit Kaylynn Mendez PLASTIC INSTALLER 05/14/2011 Office visit Kaylynn Mendez PLASTIC INSTALLER 05/11/2011 Office visit Odell Tierney MD 04/28/2011 Office visit Kaylynn Mendez PLASTIC INSTALLER 03/02/2011 Office visit Chadd Norris DO 02/17/2011 [...]
--- OUTSIDE RECORDS SUMMARY | 2018-05-09 20:53 | XMS REPORT ---
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 fdrzjear-cnsjxjaft-TR 3.5-10,000-1 mg/mL-unit/mL-% otic drops,suspension 201607/23/2016 instill 4 [...] HC BMI BSA BMI Percentile O2 Sat(%) 07/18/2017 3:02:00 PM 134 mmHg 80 mmHg [...] 04/28/2011 12:00 AM Decadron 1 mg [facility]#82002092396 (Jr) Reviewed 04/28/2011 12:00 AM Depo-Medrol 80 mg [facility]#[id number]-Vtkagrob Reviewed 09/02/2015 12:00 AM Toradol 60 Mg ND#4563-9286-58 Reviewed 09/02/2015 12:00 AM Phenergan, Up to 50 Mg RHC Medicaid Reviewed 09/16/2015 12:00 AM Toradol 60 Mg [facility]#1246-6088-57 Reviewed 09/16/2015 12:00 AM Phenergan Up to 50 mg RHC Medicare Reviewed 05/11/2011 12:00 AM N BLOCK INJ OCCIPITAL Reviewed 05/11/2011 12:00 AM Kenalog Yx-[address]-20 ANNA Reviewed 11/13/2015 12:00 AM ASSAY OF [...] Reviewed 07/08/2011 12:00 AM Toradol,15mg [facility]#89502691112, [place] Reviewed 07/08/2011 12:00 AM Phenergan 50 Mg Im [facility] 4588-9256-19 [place] Reviewed 01/21/2016 12:00 AM ECG MONIT/REPRT UP TO 48 HRS Returned 08/02/2011 12:00 AM THER/PROPH/DIAG INJ SC/IM Reviewed 08/02/2011 12:00 AM Decadron 1 mg [facility]#[id number] (Jr) Reviewed 08/02/2011 12:00 AM Depo-Medrol 80 mg [facility]#47330057706-Oncvfnfz Reviewed 03/05/2016 12:00 AM COMPLETE CBC W/AUTO DIFF WBC Reviewed 03/05/2016 12:00 AM STREP A ASSAY W/OPTIC Reviewed 03/05/2016 12:00 AM C-REACTIVE PROTEIN Reviewed 03/18/2016 12:00 AM [facility] MEDICARE - [...] 12:00 AM Depo-Medrol 80 mg [facility]#[id number]-Npteliqd Reviewed 09/27/2011 12:00 AM Depo-Medrol 40 mg [facility]#7172095360 Reviewed 07/06/2016 12:00 AM CHEST X-RAY 4/> [...] Reviewed 12/23/2011 12:00 AM Decadron 1 mg ND#[id number] (Jr) Reviewed 12/23/2011 12:00 AM Depo-Medrol 80 mg N[facility]#[id number]-Ydwkajyv Reviewed 11/02/2016 11:45 AM URINALYSIS AUTO W/O [...] Reviewed 02/09/2012 12:00 AM Decadron 1 mg ND#90478382139 (Jr) Reviewed 02/09/2012 12:00 AM Depo-Medrol 80 mg N[facility]#[id number]-Qwnujhai Reviewed 02/21/2017 12:00 AM CULTURE OTHR SPECIMN AEROBIC Returned 02/21/2017 12:00 AM INFLUENZA ASSAY W/OPTIC Returned 02/23/2017 12:00 AM COMPLETE CBC W/AUTO DIFF WBC Reviewed 02/23/2017 12:00 AM X-RAY EXAM OF KNEE 3 Returned 03/15/2012 12:00 AM N BLOCK INJ OCCIPITAL Reviewed 03/15/2012 12:00 AM Kenalog Qi-[address]-20 ANNA Reviewed 04/11/2012 12:00 AM COMPLETE CBC [...] Returned 06/28/2017 12:00 AM Screening mammography, bilateral Returned 06/02/2017 12:00 AM EXTRACRANIAL BILAT STUDY [...] 12:00 AM RBC SED RATE AUTOMATED Reviewed 06/20/2012 12:00 AM THER/PROPH/DIAG INJ SC/IM Reviewed 06/20/2012 12:00 AM Decadron, Per 1 Mg ND# [address]-73 Reviewed 06/20/2012 12:00 AM Depo-Medrol, Per 80 Mg NDC#0929-0588-66 Reviewed 09/06/2012 12:00 AM N BLOCK INJ OCCIPITAL Reviewed 09/06/2012 12:00 AM Quentin Yw-[address]-20 ANNA Reviewed 09/06/2012 12:00 AM X-RAY EXAM RIBS UNI 2 VIEWS Reviewed 09/26/2012 12:00 AM THER/PROPH/DIAG INJ SC/IM Reviewed 09/26/2012 12:00 AM Decadron, Per 1 Mg ND# [address]-95 Reviewed 09/26/2012 12:00 AM Depo-Medrol, Per 80 Mg NDC#9101-2080-51 Reviewed 10/03/2012 12:00 AM URINALYSIS AUTO W/O SCOPE Reviewed 10/03/2012 12:00 AM THER/PROPH/DIAG INJ SC/IM Reviewed 10/03/2012 12:00 AM Toradol 60 Mg [facility]#7525-1437-70 Reviewed 10/03/2012 12:00 AM Phenergan, 25Mg [facility]#9505-6573-40 Reviewed 10/19/2012 12:00 AM N BLOCK INJ OCCIPITAL Reviewed 10/19/2012 12:00 AM Kenalog, Per 10 Mg [facility]#4323-2046-45 Reviewed 10/19/2012 12:00 AM Toradol 30 Mg [facility]#2013-4389-88 Reviewed 10/19/2012 12:00 AM THER/PROPH/DIAG INJ SC/IM Reviewed 10/31/2012 12:00 AM COMPLETE CBC W/AUTO DIFF WBC Reviewed 10/31/2012 12:00 AM COMPREHEN METABOLIC PANEL Reviewed 10/31/2012 12:00 AM LIPID PANEL Reviewed 10/31/2012 12:00 AM ELECTROCARDIOGRAM COMPLETE Reviewed 11/03/2012 12:[address] THORAX W/O & W/DYE Reviewed 11/08/2012 12:00 AM N BLOCK INJ OCCIPITAL Reviewed 11/08/2012 12:00 AM Kenalog Da-[address]-20 ANNA Reviewed 11/27/2012 12:00 AM COMPLETE CBC [...] Decadron, Per 1 Mg [facility]# [address]-53 Reviewed 01/25/2013 12:00 AM Depo-Medrol, Per 80 Mg [facility]#9347-1480-52 Reviewed 01/26/2013 12:00 AM IMMUNOTHERAPY ONE INJECTION [...] Decadron, Per 1 Mg [facility]# [address]-50 Reviewed 05/16/2013 12:00 AM Depo-Medrol, Per 80 Mg [facility]#7849-4881-27 Reviewed 05/31/2013 12:00 AM IMMUNOTHERAPY INJECTIONS Reviewed 06/08/2013 12:00 AM IMMUNOTHERAPY INJECTIONS Reviewed 06/14/2013 12:00 AM IMMUNOTHERAPY INJECTIONS Reviewed 06/28/2013 12:00 AM IMMUNOTHERAPY INJECTIONS Reviewed 07/12/2013 12:00 AM X-RAY EXAM RIBS UNI 2 VIEWS Reviewed 07/18/2013 12:00 AM Toradol 60 Mg [facility]#4721-5989-57 Reviewed 07/18/2013 12:00 AM THER/PROPH/DIAG INJ SC/IM Reviewed 08/23/2013 12:00 AM COMPLETE CBC W/AUTO DIFF WBC Reviewed 08/23/2013 12:00 AM COMPREHEN METABOLIC PANEL Reviewed 08/23/2013 12:00 AM LIPID PANEL Reviewed 08/31/2013 12:00 AM X-RAY EXAM OF LOWER LEG Reviewed 09/04/2013 12:00 AM IMMUNOTHERAPY INJECTIONS Reviewed 09/14/2013 12:00 AM THER/PROPH/DIAG INJ SC/IM Reviewed 09/14/2013 12:00 AM Decadron, Per 1 Mg [facility]# [address]-22 Reviewed 09/14/2013 12:00 AM Depo-Medrol, Per 80 Mg [facility]#2756-9850-29 Reviewed 09/20/2013 12:00 AM IMMUNOTHERAPY INJECTIONS Reviewed [...] INJ OCCIPITAL Reviewed 12/10/2009 12:00 AM Kenalog Re-[address]-20 ANNA Reviewed 12/16/2009 12:00 AM HIV-1ANTIBODY Reviewed 12/16/2009 12:00 AM COMPLETE CBC W/AUTO DIFF WBC Reviewed 12/16/2009 12:00 AM METABOLIC PANEL TOTAL CA Reviewed 12/16/2009 12:00 AM Type and screen Reviewed 12/16/2009 12:00 AM PROTHROMBIN TIME Reviewed 12/16/2009 12:00 AM THROMBOPLASTIN TIME PARTIAL Reviewed 03/18/2010 12:00 AM DRAIN/INJ JOINT/BURSA W/O US Reviewed 03/18/2010 12:00 AM Kenalog Ih-[address]-20 ANNA Reviewed 11/21/2013 12:00 AM RADEX HAND MINIMUM 3 VIEWS Reviewed 06/03/2010 12:00 AM INJ TRIGGER POINT 1/2 MUSCL Reviewed 06/03/2010 12:00 AM Kenalog per 10Mg Im-[facility]#[address]-91(Niall) Reviewed 12/05/2013 12:00 AM COMPLETE CBC W/AUTO [...] 07/23/2010 12:00 AM Kenalog per 10Mg Im-[facility]#[address]-20(Niall) Reviewed 2014 12:00 AM COMPLETE CBC W/AUTO [...] INJ OCCIPITAL Reviewed 10/01/2010 12:00 AM Kenalog Vj-[address]-20 ANNA Reviewed 07/25/2014 12:00 AM THER/PROPH/DIAG INJ [...] 141 Influenza 04/24/2014 sanofi pasteur PMC Fluzone [id number] Intramuscular Left Upper Arm 02/27/2014 01/15/2014 141 Influenza 02/13/2015 sanofi pasteur PMC Fluzone [id number] Intramuscular Left Deltoid 02/13/2015 01/03/2015 140 Tdap 06/06/2015 [employer] SKB BOOSTRIX [id number] Intramuscular Left Deltoid 06/06/2015 07/23/2014 115 Influenza 03/18/2016 sanofi pasteur PMC Fluzone [id number] Intramuscular Left Deltoid 03/17/2016 01/03/2015 141 History [...] mellitus with hyperglycemia 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 Jun 24 2017 [...] 2017 3:05PM Myalgia Jul 18 2017 3:05PM Payers Insurance Name Company Name Plan Name Plan Number Policy Number Policy Group Number Start Date Medicare RHC Medicare RHC [id number] N/A [facility] - RHC - Community Plan of [facility] RHC Comm [id number] N/A Medicare Part A Medicare - Lab/Xray [id number] N/A Medicare Part B Medicare Of [place] [id number] Monday, February 28, 2000 [place] [employer] [place] [employer] [place] [id number] Tuesday, November 10, 2009 Medicare Part A Medicare Part A [id number] N/A [place] [employer] - [place] [employer] - RHC [id number] [facility] Plan of [facility] Comm Plan of [id number] Wednesday, May 30, 2012 History of Encounters Visit Date Visit Type Provider 07/18/2017 Office visit Heena Dumont MD 06/28/2017 Office visit 06/28/2017 Office visit Lena El SHIRT BANDER 06/24/2017 Office visit Sundeep Russell SHIRT BANDER 06/02/2017 Office visit Heena Dumont MD 04/20/2017 Office visit 04/20/2017 Office visit 04/20/2017 Office visit 04/20/2017 Office visit Heena Dumont MD 03/22/2017 Office visit Heena Dumont MD 03/05/2017 Office visit Lena Chaves SHIRT BANDER 02/23/2017 Office visit Symone Marie SHIRT BANDER 02/21/2017 Office visit Heena Dumont MD 02/15/2017 Office visit Heena Dmuont MD 02/02/2017 Office visit Heena Dumont MD 01/07/2017 Office visit Riccardo Cardoza MD 01/03/2017 Office visit Heena Dumont MD 12/15/2016 Office visit Kaylynn Mendez SHIRT BANDER 12/02/2016 Office visit Heena Dumont MD 11/23/2016 Zuleika Hoskins MD 11/23/2016 Office visit Kaylynn Mendez SHIRT BANDER 11/17/2016 Office visit Kaylynn Mendez SHIRT BANDER 11/05/2016 Office visit Riccardo Cardoza MD 11/02/2016 Office visit Heena Dumont MD 10/06/2016 Office visit Kaylynn Mendez SHIRT BANDER 09/22/2016 Office visit Heena Dumont MD 09/09/2016 Office visit Kaylynn Mendez SHIRT BANDER 08/27/2016 Office visit Riccardo Cardoza MD 08/26/2016 Office visit Heena Dumont MD 07/09/2016 Office visit Riccardo Cardoza MD 07/06/2016 Office visit Heena Dumont MD 06/18/2016 Office visit Kaylynn Mendez SHIRT BANDER 06/07/2016 Office visit Sundeep Russell SHIRT BANDER 06/04/2016 Office visit Heena Dumont MD 05/13/2016 Office visit Heena Dumont MD 05/03/2016 Office visit Heena Dumont MD 04/26/2016 Office visit Kaylynn Mendez SHIRT BANDER 04/14/2016 Office visit Heena Dumont MD 04/13/2016 Office visit Kaylynn Mendez SHIRT BANDER 04/02/2016 Office visit Lena El SHIRT BANDER 04/02/2016 Office visit Heena Dumont MD 03/26/2016 Office visit Yesica Falcon SHIRT BANDER 03/17/2016 Office visit Heena Dumont MD 03/05/2016 Office visit Kaylynn Mendez SHIRT BANDER 02/16/2016 Office visit Heena Dumont MD 02/14/2016 Office visit Na Jones SHIRT BANDER 01/16/2016 Office visit Heena Dumont MD 12/16/2015 Office visit Heena Dumont MD 11/24/2015 Office visit Kaylynn Mendez SHIRT BANDER 11/18/2015 Office visit Heena Dumont MD 11/03/2015 Office visit Sundeep Russell SHIRT BANDER 10/20/2015 Office visit Kaylynn Mendez SHIRT BANDER 09/23/2015 Office visit Kaylynn Mendez SHIRT BANDER 09/16/[address] Pepe Figueroa MD 09/02/2015 Office visit Kaylynn Mendez SHIRT BANDER 09/01/2015 Office visit Kaylynn Mendez SHIRT BANDER 07/30/2015 Office visit Heena Dumont MD 07/15/2015 Office visit Kaylynn Mendez SHIRT BANDER 07/04/2015 Office visit Heena Dumont MD 06/06/2015 Office visit Heena Dumont MD 06/06/2015 Office visit Kaylynn Mendez SHIRT BANDER 06/02/2015 Office visit Kaylynn Mendez SHIRT BANDER 05/26/2015 Office visit Kaylynn Mendez SHIRT BANDER 05/20/2015 Office visit Kaylynn Mendez SHIRT BANDER 05/08/2015 Office visit Heena Dumont MD 05/06/2015 Office visit Kaylynn Mendez SHIRT BANDER 04/29/2015 Office visit Kaylynn Mendez SHIRT BANDER 03/27/2015 Voided Brittni Yanez SHIRT BANDER 03/21/2015 Office visit Heena Dumont MD 03/12/2015 Office visit Kaylynn Mendez SHIRT BANDER 02/26/2015 Office visit Brittni Yanez SHIRT BANDER 02/13/2015 Office visit Heena Dumont MD 01/15/2015 Office visit Brittni Yanez SHIRT BANDER 01/13/2015 Office visit Heena Dumont MD 01/08/[address] Carol Fowler MD 01/01/2015 Office visit Brittni Yanez SHIRT BANDER 12/13/2014 Office visit Heena Dumont MD 11/27/2014 Office visit Kaylynn Mendez SHIRT BANDER 11/14/2014 Office visit Heena Dumont MD 10/18/2014 Office visit Heena Dumont MD 10/17/2014 Hospital Eliseo Hoskins MD 10/09/2014 Office visit Heena Dumont MD 09/25/2014 Office visit Heena Dumont MD 09/17/2014 Office visit Kaylynn Mendez SHIRT BANDER 09/04/2014 Office visit Heena Dumont MD 08/28/2014 Office visit Kaylynn Mendez SHIRT BANDER 08/23/2014 [facility] Eliseo Hoskins MD 08/01/2014 Office visit Kaylynn Mendez SHIRT BANDER 07/29/2014 Office visit Heena Dumont MD 07/25/2014 Nurse visit Heena Dumont MD 07/17/2014 Office visit Kaylynn Mendez SHIRT BANDER 07/11/2014 Office visit eHena Dumont MD 07/01/2014 Office visit Heena Dumont MD 06/25/2014 Office visit Kaylynn Mendez SHIRT BANDER 06/12/2014 Office visit Kaylynn Mendez SHIRT BANDER 06/06/2014 Office visit Kaylynn Mendez SHIRT BANDER 05/27/2014 Office visit Heena Dumont MD 04/20/2014 Office visit Yesica Falcon SHIRT BANDER 03/29/2014 Office visit Na Jones SHIRT BANDER 03/15/2014 Office visit Heena Dumont MD 2014 Office visit Heena Dumont MD 2014 Hospital John Hoskins MD 02/27/2014 Nurse visit Heena Dumont MD 02/13/2014 Office visit Lena El SHIRT BANDER 02/07/2014 Office visit Heena Dumont MD 02/03/2014 Office visit Na Jones SHIRT BANDER 01/30/2014 Office visit Kaylynn Mendez SHIRT BANDER 01/24/2014 Office visit Sundeep Russell SHIRT BANDER 01/16/2014 Office visit Kaylynn Mendez SHIRT BANDER 01/10/2014 Nurse visit Kaylynn Mendez SHIRT BANDER 01/08/2014 Office visit Kaylynn Walker SHIRT BANDER 12/05/2013 Office visit Kaylynn Walker SHIRT BANDER 11/21/2013 Office visit Kaylynn Walker SHIRT BANDER 10/23/2013 Office visit Brittni Yanez SHIRT BANDER 10/17/2013 Nurse visit Heena Dumont MD 10/12/2013 Office visit Kaylynn Mendez SHIRT BANDER 10/02/2013 Office visit Heena Dumont MD 09/20/2013 Nurse visit Kaylynn Walker SHIRT BANDER 09/20/2013 Voided Heena Dumont MD 09/14/2013 Office visit Kaylynn Walker SHIRT BANDER 09/05/2013 Office visit Sundeep Russell SHIRT BANDER 09/04/2013 Nurse visit Kaylynn Walker SHIRT BANDER 08/31/2013 Office visit Kaylynn Walker SHIRT BANDER 08/23/2013 Office visit Heena Dumont MD 08/10/2013 Office visit Kaylynn Walker SHIRT BANDER 07/25/2013 Office visit Kaylynn Walker SHIRT BANDER 07/18/2013 Office visit Kaylynn Walker SHIRT BANDER 07/12/2013 Office visit Kaylynn Walker SHIRT BANDER 06/28/2013 Nurse visit Kaylynn Walker SHIRT BANDER 06/14/2013 Nurse visit Kaylynn Walker SHIRT BANDER 06/08/2013 Nurse visit Kaylynn Walker SHIRT BANDER 05/31/2013 Nurse visit Chadd Norris DO 05/18/2013 Office visit Terese Davidson MD 05/16/2013 Office visit Kaylynn Mendez SHIRT BANDER 05/09/2013 Office visit Kaylynn Mendez SHIRT BANDER 04/29/2013 [facility] Eliseo Hoskins MD 04/25/2013 Nurse visit Kaylynn Walker SHIRT BANDER 04/17/2013 Office visit Kaylynn Walker SHIRT BANDER 04/03/2013 Nurse visit Kaylynn Mendez SHIRT BANDER 04/03/2013 Office visit Terese Davidson MD 03/28/2013 Office visit Sundeep Russell SHIRT BANDER 03/21/2013 Office visit Kaylynn Mendez SHIRT BANDER 03/20/2013 Office visit Terese Davidson MD 03/14/2013 Nurse visit Kaylynn Mendez SHIRT BANDER 03/05/2013 Nurse visit Kaylynn Mendez SHIRT BANDER 02/19/2013 Office visit Terese Davidson MD 02/16/2013 Nurse visit Kaylynn Mendez SHIRT BANDER 02/09/2013 Office visit Sundeep Russell SHIRT BANDER 02/08/2013 Nurse visit Kaylynn Walker SHIRT BANDER 02/01/2013 Nurse visit Kaylynn Walker SHIRT BANDER 01/26/2013 Nurse visit Sabrina Mendez GLASSWARE MAKER DEMONSTRATOR 01/25/2013 Office visit Kaylynn Mendez SHIRT BANDER 01/22/2013 Office visit Yoan Castaneda MD 01/18/2013 Nurse visit Kaylynn Walker SHIRT BANDER 01/11/2013 Nurse visit Kaylynn Walker SHIRT BANDER 01/05/2013 Nurse visit Kaylynn Walker SHIRT BANDER 12/29/2012 Office visit Kaylynn Walker SHIRT BANDER 11/27/2012 Office visit Kaylynn Walker SHIRT BANDER 11/08/2012 Office visit Odell Tierney MD 11/08/2012 Voided Odell Tierney MD 11/07/2012 Office visit Kaylynn Walker SHIRT BANDER 10/31/2012 [facility] John Hoskins MD 10/31/2012 Office visit Kaylynn Walker SHIRT BANDER 10/19/2012 Office visit Genoveva Ayala SHIRT BANDER 10/10/2012 Office visit Kaylynn Walker SHIRT BANDER 10/03/2012 Office visit Kaylynn Walker SHIRT BANDER 09/26/2012 Office visit Kaylynn Walker SHIRT BANDER 09/06/2012 Office visit Kaylynn Walker SHIRT BANDER 09/06/2012 Office visit Odell Tierney MD 08/31/2012 Voided Kaylynn Mendez SHIRT BANDER 07/28/2012 Office visit Kaylynn Walker SHIRT BANDER 07/27/2012 Office visit David Joyner DO 07/20/2012 [facility] DO 07/13/2012 [facility] DO 07/11/2012 Office visit Kaylynn Mendez SHIRT BANDER 06/27/2012 [facility] Odell Tierney MD 06/21/2012 Office visit David Joyner DO 06/21/2012 Office visit Odell Tierney MD 06/20/2012 Office visit Brittni Yanez SHIRT BANDER 06/06/2012 Office visit Odell Tierney MD 05/03/2012 Office visit Kaylynn Mendez SHIRT BANDER 04/28/2012 Office visit Brittni Yanez SHIRT BANDER 04/11/2012 Office visit Kaylynn Mendez SHIRT BANDER 04/06/2012 [facility] John Hoskins MD 03/30/2012 Office visit Kaylynn Walker SHIRT BANDER 03/15/2012 Office visit Kaylynn Walker SHIRT BANDER 03/15/2012 Office visit Odell Tierney MD 02/09/2012 Office visit Kaylynn Walker SHIRT BANDER 12/23/2011 Office visit Kaylynn Walker SHIRT BANDER 11/02/2011 Office visit Kaylynn Walker SHIRT BANDER 10/14/2011 Office visit Kaylynn Walker SHIRT BANDER 09/27/2011 Office visit Kaylynn Walker SHIRT BANDER 08/19/2011 Hospital John Hoskins MD 08/18/2011 [facility] John Hoskins MD 08/18/2011 Office visit Kaylynn Walker SHIRT BANDER 08/02/2011 Office visit Kaylynn Walker SHIRT BANDER 07/08/2011 Office visit Kaylynn Mendez SHIRT BANDER 07/05/2011 Office visit Odell Tierney MD 06/15/2011 Office visit Kaylynn Mendez SHIRT BANDER 05/14/2011 Office visit Kaylynn Mendez SHIRT BANDER 05/11/2011 Office visit Odell Tierney MD 04/28/2011 Office visit Kaylynn Mendez SHIRT BANDER 03/02/2011 Office visit Chadd Norris DO 02/17/2011 [...]
--- OUTSIDE RECORDS SUMMARY | 2018-05-09 20:57 | XMS REPORT ---
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 Role Phone Heena Dumont PCP Allergies [...] 12 hours for 30 days Ambien CR oral tablet,ext release multiphase 12.5 mg 11/28/2014 12/28/2014 take 1 tablet (12.5 mg) by oral route once daily at bedtime for 30 days Name Start Date Expiration [...] 08/27/2014 use as directed for 99 days Lerona oral tablet 5-325 mg 06/17/2014 06/27/2014 take [...] the evening changed to crestor Flonase Nasal [place], Suspension 50 mcg/actuation 06/20/2012 10/31/2012 inhale 1 spray (50 mcg) in each nostril by intranasal route once daily Restoril Oral capsule 15 mg 06/28/2012 07/11/2012 take 1 capsule (15 mg) by oral route once daily at bedtime as needed Chantix Starting Month Box Oral tablets,dose pack 0.5 (11)-1 (42) mg 201210/31/2012 take as directed Ambien Oral [...] HC BMI BSA BMI Percentile O2 Sat(%) 11/27/2014 9:57:00 AM 110 mmHg 80 mmHg [...] AM INJ TRIGGER POINT 05/31 MUSCL Reviewed 02/07/2014 12:00 AM VIT D 1 25-DIHYDROXY Returned 02/13/2014 12:00 AM VIRUS INOCULATION TISSUE Returned 02/25/2014 12:00 AM COMPLETE CBC W/AUTO DIFF WBC Returned 02/25/2014 12:00 AM COMPREHEN METABOLIC PANEL Returned 02/25/2014 12:00 AM METABOLIC PANEL TOTAL CA Returned 02/25/2014 12:00 AM LIPID PANEL Returned 02/25/2014 12:00 AM GLYCOSYLATED HEMOGLOBIN TEST Returned 07/23/2010 12:00 AM INJ TRIGGER POINT 05/31 MUSCL Reviewed 2014 12:00 AM COMPLETE CBC [...] 0.60 mg/dLCALCIUM 10.90 mg/ dLeGFR >60 mL/min/1.73 [id number] 45.0 U/L 08/31/2013 10:54 AM GLUCOSE 255.0 [...] 0.40 mg/ dLCALCIUM 10.60 mg/dLeGFR >60 mL/min/1.73 [id number] 369.0 mg/ dLCHOLESTEROL 153.0 mg/dLHDL 26.0 mg/dLLDL [...] BILI 0.30 mg/dLCALCIUM 10.0 mg/dLeGFR >60 mL/min/1.73 [id number] YELLOW APPEARANCE CLEAR SPEC GRAV 1.010 pH [...] Not Entered 03/31/2011 05/30/2015 141 Influenza 04/24/2014 sanstephanie pasteur PMC Fluzone [id number] Intramuscular Left Upper Arm 02/27/2014 01/15/2014 141 [...] Hand pain, left Nov 27 2014 10:00AM Payers Insurance Name Company Name Plan Name Plan Number Policy Number Policy Group Number Start Date Medicare Part A Medicare Part A [id number] N/A [facility] RHC Comm [id number] N/A [place] [employer]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 - C [id number] [facility] Comm Plan of [id number] Wednesday, 2012 Medicare Part B Medicare Of [place] [id number] Monday, 2000 [place] Medical [place] Program [place] Medical [place] Prog [id number] Tuesday, 2009 History of Encounters Visit Date Visit Type Provider 11/27/2014 Office visit Kaylynn Mendez APRN 11/14/2014 Office visit Heena Dumont MD 10/18/2014 Office visit Heena Dumont MD 10/09/2014 Office visit Heena Dumont MD 09/25/2014 Office visit Heena Dumont MD 09/17/2014 Office visit Kaylynn Mendez APRN 09/04/2014 Office visit Heena Dumont MD 08/28/2014 Office visit Kaylynn Mendez APRN 08/01/2014 Office visit Kaylynn Mendez APRN 07/29/2014 Office visit Heena Dumont MD 07/25/2014 Nurse visit Heena Dumont MD 07/17/2014 Office visit Kaylynn Mendez APRN 07/11/2014 Office visit Heena Dumont MD 07/01/2014 Office visit Heena Dumont MD 06/25/2014 Office visit Kaylynn Mendez VENEER MARKER 06/12/2014 Office visit Kaylynn Mendez VENEER MARKER 06/06/2014 Office visit Kaylynn Mendez VENEER MARKER 05/27/2014 Office visit Heena Dumont MD 04/20/2014 Office visit Yesica Falcon VENEER MARKER 03/29/2014 Office visit Na Jones VENEER MARKER 03/15/2014 Office visit Heena Dumont MD 2014 Office visit Heena Dumont MD 2014 [facility] John Hoskins MD 02/27/2014 Nurse visit Heena Dumont MD 02/13/2014 Office visit Lena El VENEER MARKER 02/07/2014 Office visit Heena Dumont MD 02/03/2014 Office visit Na Jones VENEER MARKER 01/30/2014 Office visit Kaylynn Mendez VENEER MARKER 01/24/2014 Office visit Sundeep Russell VENEER MARKER 01/16/2014 Office visit Kaylynn Mendez VENEER MARKER 01/10/2014 Nurse visit Kaylynn Mendez VENEER MARKER 01/08/2014 Office visit Kaylynn Walker VENEER MARKER 12/05/2013 Office visit Kaylynn Walker VENEER MARKER 11/21/2013 Office visit Kaylynn Mendez VENEER MARKER 10/23/2013 Office visit Brittni Yanez VENEER MARKER 10/17/2013 Nurse visit Heena Dumont MD 10/12/2013 Office visit Kaylynn Mendez VENEER MARKER 10/02/2013 Office visit Heena Dumont MD 09/20/2013 Voided Heena Dumont MD 09/20/2013 Nurse visit Kaylynn Walker VENEER MARKER 09/14/2013 Office visit Kaylynn Walker VENEER MARKER 09/05/2013 Office visit Sundeep Russell VENEER MARKER 09/04/2013 Nurse visit Kaylynn Walker VENEER MARKER 08/31/2013 Office visit Kaylynn Walker VENEER MARKER 08/23/2013 Office visit Heena Dumont MD 08/10/2013 Office visit Kaylynn Walker VENEER MARKER 07/25/2013 Office visit Kaylynn Walker VENEER MARKER 07/18/2013 Office visit Kaylynn Walker VENEER MARKER 07/12/2013 Office visit Kaylynn Walker VENEER MARKER 06/28/2013 Nurse visit Kaylynn Walker VENEER MARKER 06/14/2013 Nurse visit Kaylynn Walker VENEER MARKER 06/08/2013 Nurse visit Kaylynn Walker VENEER MARKER 05/31/2013 Nurse visit Chadd Norris DO 05/18/2013 Office visit Terese Davidson MD 05/16/2013 Office visit Kaylynn Walker VENEER MARKER 05/09/2013 Office visit Kaylynn Walker VENEER MARKER 04/29/2013 [facility] John Hoskins MD 04/25/2013 Nurse visit Kaylynn Mendez VENEER MARKER 04/17/2013 Office visit Kaylynn Mendez VENEER MARKER 04/03/2013 Office visit Terese Davidson MD 04/03/2013 Nurse visit Kaylynn Mendez VENEER MARKER 03/28/2013 Office visit Sundeep Russell VENEER MARKER 03/21/2013 Office visit Kaylynn Andrea VENEER MARKER 03/20/2013 Office visit Terese Davidson MD 03/14/2013 Nurse visit Kaylynn Mendez VENEER MARKER 03/05/2013 Nurse visit Kaylynn Mendez VENEER MARKER 02/19/2013 Office visit Terese Davidson MD 02/16/2013 Nurse visit Kaylynn Mendez VENEER MARKER 02/09/2013 Office visit Sundeep Russell VENEER MARKER 02/08/2013 Nurse visit Kaylynn Mendez VENEER MARKER 02/01/2013 Nurse visit Kaylynn Mendez VENEER MARKER 01/26/2013 Nurse visit Sabrina Andrea HAND SINGER 01/25/2013 Office visit Kaylynn Andrea VENEER MARKER 01/22/2013 Office visit Yoan Castaneda MD 01/18/2013 Nurse visit Kaylynn Mendez VENEER MARKER 01/11/2013 Nurse visit Kaylynn Andrea VENEER MARKER 01/05/2013 Nurse visit Kaylynn Mendez VENEER MARKER 12/29/2012 Office visit Kaylynn Andrea VENEER MARKER 11/27/2012 Office visit Kaylynn Mendez VENEER MARKER 11/08/2012 Voided Odell Tierney MD 11/08/2012 Office visit Odell Tierney MD 11/07/2012 Office visit Kaylynn Mendez VENEER MARKER 10/31/2012 Office visit Kaylynn Mendez VENEER MARKER 10/31/2012 [facility] John Hoskins MD 10/19/2012 Office visit Genoveva Ayala VENEER MARKER 10/10/2012 Office visit Kaylynn Mendez VENEER MARKER 10/03/2012 Office visit Kaylynn Walker VENEER MARKER 09/26/2012 Office visit Kaylynn Mendez VENEER MARKER 09/06/2012 Office visit Odell Tierney MD 09/06/2012 Office visit Kaylynn Mendez VENEER MARKER 08/31/2012 Voided Kaylynn Mendez VENEER MARKER 07/28/2012 Office visit Kaylynn Mendez VENEER MARKER 07/27/2012 Office visit David Joyner DO 07/20/2012 [facility] David Joyner DO 07/13/2012 [facility] David Joyner DO 07/11/2012 Office visit Kaylynn Mendez VENEER MARKER 06/27/2012 [facility] Odell Tierney MD 06/21/2012 Office visit Odell Tierney MD 06/21/2012 Office visit David Joyner DO 06/20/2012 Office visit Brittni Yanez VENEER MARKER 06/06/2012 Office visit Odell Tierney MD 05/03/2012 Office visit Kaylynn Mendez VENEER MARKER 04/28/2012 Office visit Brittni Tomy Yanez VENEER MARKER 04/11/2012 Office visit Kaylynn Mendez VENEER MARKER 04/06/2012 Hospital John Hoskins MD 03/30/2012 Office visit Kaylynn Andrea VENEER MARKER 03/15/2012 Office visit Odell Tierney MD 03/15/2012 Office visit Kaylynn Walker VENEER MARKER 02/09/2012 Office visit Kaylynn Walker VENEER MARKER 12/23/2011 Office visit Kaylynn Walker VENEER MARKER 11/02/2011 Office visit Kaylynn Walker VENEER MARKER 10/14/2011 Office visit Kaylynn Walker VENEER MARKER 09/27/2011 Office visit Kaylynn Walker VENEER MARKER 08/19/2011 Hospital John Hoskins MD 08/18/2011 Office visit Kaylynn Walker VENEER MARKER 08/18/2011 [facility] John Hoskins MD 08/02/2011 Office visit Kaylynn Mendez VENEER MARKER 07/08/2011 Office visit Kaylynn Andrea VENEER MARKER 07/05/2011 Office visit Odell Tierney MD 06/15/2011 Office visit Kaylynn Mendez VENEER MARKER 05/14/2011 Office visit Kaylynn Mendez VENEER MARKER 05/11/2011 Office visit Odell Tierney MD 04/28/2011 Office visit Kaylynn Mendez VENEER MARKER 03/02/2011 Office visit Chadd Norris DO 02/17/2011 [...]
--- OUTSIDE RECORDS SUMMARY | 2018-05-09 21:00 | XMS REPORT ---
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 Name Role Phone Heena Dumont PCP Allergies [...] 08/27/2014 use as directed for 99 days [place] 5-325 mg oral tablet 06/17/2014 06/27/2014 take [...] a day as needed for 30 days [id number] 3.5-10,000-1 mg/mL-unit/mL-% otic drops,suspension 201401/08/2015 instill 4 [...] Reviewed 04/28/2011 12:00 AM Decadron 1 mg [facility]#[id number] (Jr) Reviewed 04/28/2011 12:00 AM Depo-Medrol 80 mg NDC#[id number]-Eylymrns Reviewed 05/11/2011 12:00 AM N BLOCK INJ OCCIPITAL Reviewed 05/11/2011 12:00 AM Kenalog Dd-[id number] ANNA Reviewed 06/15/2011 12:00 AM COMPLETE CBC W/AUTO DIFF WBC Returned 06/15/2011 12:00 AM COMPREHEN METABOLIC PANEL Returned 07/08/2011 12:00 AM THER/PROPH/DIAG INJ SC/IM Reviewed 07/08/2011 12:00 AM Toradol,15mg NDC#[id number], [place] Reviewed 07/08/2011 12:00 AM Phenergan 50 Mg Im Ndc 4278-1404-39 ALLIE Hoskins Reviewed 08/02/2011 12:00 AM THER/PROPH/DIAG INJ SC/IM Reviewed 08/02/2011 12:00 AM Decadron 1 mg NDC#[id number] (Jr) Reviewed 08/02/2011 12:00 AM Depo-Medrol 80 mg NDC#[id number]-Zytbuoky Reviewed 09/27/2011 12:00 AM THER/PROPH/DIAG INJ SC/IM Reviewed 09/27/2011 12:00 AM Depo-Medrol 80 mg NDC#[id number]-Lzszqfyf Reviewed 10/14/2011 12:00 AM X-RAY EXAM OF ABDOMEN Returned 10/14/2011 12:00 AM URINALYSIS AUTO W/O SCOPE Reviewed 12/23/2011 12:00 AM THER/PROPH/DIAG INJ SC/IM Reviewed 12/23/2011 12:00 AM Decadron 1 mg NDC#[id number] (Jr) Reviewed 12/23/2011 12:00 AM Depo-Medrol 80 mg NDC#[id number]-Tszqdbrj Reviewed 02/09/2012 12:00 AM THER/PROPH/DIAG INJ SC/IM Reviewed 02/09/2012 12:00 AM Decadron 1 mg N[facility]#[id number] (Jr) Reviewed 02/09/2012 12:00 AM Depo-Medrol 80 mg NDC#[id number]-Nvjqxyqj Reviewed 03/15/2012 12:00 AM N BLOCK INJ OCCIPITAL Reviewed 03/15/2012 12:00 AM Kenalog Nd-[address]-20 ANNA Reviewed 04/11/2012 12:00 AM COMPLETE CBC W/AUTO DIFF WBC Returned 04/11/2012 12:00 AM COMPREHEN METABOLIC PANEL Returned 04/11/2012 12:00 AM LIPID PANEL Returned 04/11/2012 12:00 AM ASSAY THYROID STIM HORMONE Returned 06/20/2012 12:00 AM THER/PROPH/DIAG INJ SC/IM Reviewed 06/20/2012 12:00 AM Decadron, Per 1 Mg ND# [address]-41 Reviewed 06/20/2012 12:00 AM Depo-Medrol, Per 80 Mg ND#8703-2265-94 Reviewed 09/06/2012 12:00 AM N BLOCK INJ OCCIPITAL Reviewed 09/06/2012 12:00 AM Kenalog Zz-[address]-20 ANNA Reviewed 09/06/2012 12:00 AM X-RAY EXAM RIBS UNI 2 VIEWS Returned 09/26/2012 12:00 AM THER/PROPH/DIAG INJ SC/IM Reviewed 09/26/2012 12:00 AM Decadron, Per 1 Mg ND# [address]-29 Reviewed 09/26/2012 12:00 AM Depo-Medrol, Per 80 Mg ND#1517-2699-54 Reviewed 10/03/2012 12:00 AM URINALYSIS AUTO W/O SCOPE Reviewed 10/03/2012 12:00 AM THER/PROPH/DIAG INJ SC/IM Reviewed 10/03/2012 12:00 AM Toradol 60 Mg ND#8961-0307-82 Reviewed 10/03/2012 12:00 AM Phenergan, 25Mg ND#4817-7810-58 Reviewed 10/19/2012 12:00 AM N BLOCK INJ OCCIPITAL Reviewed 10/19/2012 12:00 AM Kenalog, Per 10 Mg ND#7194-8544-26 Reviewed 10/19/2012 12:00 AM Toradol 30 Mg ND#4217-2343-22 Reviewed 10/19/2012 12:00 AM THER/PROPH/DIAG INJ SC/IM Reviewed 10/31/2012 12:00 AM COMPLETE CBC W/AUTO DIFF WBC Returned 10/31/2012 12:00 AM COMPREHEN METABOLIC PANEL Returned 10/31/2012 12:00 AM LIPID PANEL Returned 11/03/2012 12:[address] THORAX W/O & W/DYE Returned 11/08/2012 12:00 AM N BLOCK INJ OCCIPITAL Reviewed 11/08/2012 12:00 AM Kenalog Xx-[address]-20 ANNA Reviewed 11/27/2012 12:00 AM COMPLETE CBC [...] 01/25/2013 12:00 AM Decadron, Per 1 Mg [facility]# [address]-23 Reviewed 01/25/2013 12:00 AM Depo-Medrol, Per 80 Mg [facility]#4809-4191-55 Reviewed 01/26/2013 12:00 AM IMMUNOTHERAPY INJECTIONS Returned [...] 05/16/2013 12:00 AM Decadron, Per 1 Mg [facility]# [address]-25 Reviewed 05/16/2013 12:00 AM Depo-Medrol, Per 80 Mg [facility]#7032-8300-80 Reviewed 05/31/2013 12:00 AM IMMUNOTHERAPY INJECTIONS Reviewed 06/08/2013 12:00 AM IMMUNOTHERAPY INJECTIONS Reviewed 06/14/2013 12:00 AM IMMUNOTHERAPY INJECTIONS Reviewed 06/28/2013 12:00 AM IMMUNOTHERAPY INJECTIONS Reviewed 07/12/2013 12:00 AM X-RAY EXAM RIBS UNI 2 VIEWS Returned 07/18/2013 12:00 AM Toradol 60 Mg [facility]#8831-0331-69 Reviewed 07/18/2013 12:00 AM THER/PROPH/DIAG INJ SC/IM Reviewed 08/23/2013 12:00 AM COMPLETE CBC W/AUTO DIFF WBC Reviewed 08/23/2013 12:00 AM COMPREHEN METABOLIC PANEL Reviewed 08/23/2013 12:00 AM LIPID PANEL Reviewed 08/31/2013 12:00 AM X-RAY EXAM OF LOWER LEG Returned 09/04/2013 12:00 AM IMMUNOTHERAPY INJECTIONS Reviewed 09/14/2013 12:00 AM THER/PROPH/DIAG INJ SC/IM Reviewed 09/14/2013 12:00 AM Decadron, Per 1 Mg [facility]# [address]-46 Reviewed 09/14/2013 12:00 AM Depo-Medrol, Per 80 Mg [facility]#4010-7853-76 Reviewed 09/20/2013 12:00 AM IMMUNOTHERAPY INJECTIONS Reviewed [...] INJ OCCIPITAL Reviewed 12/10/2009 12:00 AM Kenalog Cn-[address]-20 ANNA Reviewed 12/16/2009 12:00 AM HIV-1ANTIBODY Reviewed 12/16/2009 12:00 AM COMPLETE CBC W/AUTO DIFF WBC Reviewed 12/16/2009 12:00 AM METABOLIC PANEL TOTAL CA Reviewed 12/16/2009 12:00 AM Type and screen Reviewed 12/16/2009 12:00 AM PROTHROMBIN TIME Reviewed 12/16/2009 12:00 AM THROMBOPLASTIN TIME PARTIAL Reviewed 03/18/2010 12:00 AM DRAIN/INJ JOINT/BURSA W/O US Reviewed 03/18/2010 12:00 AM Kenalog Vc-[address]-20 ANNA Reviewed 11/21/2013 12:00 AM RADEX HAND MINIMUM 3 VIEWS Returned 06/03/2010 12:00 AM INJ TRIGGER POINT 1/2 MUSCL Reviewed 06/03/2010 12:00 AM Jose Davidalog per 10Mg -[facility]#[address]-13(Niall) Reviewed 12/05/2013 12:00 AM COMPLETE CBC W/AUTO [...] Reviewed 07/23/2010 12:00 AM Kenalog per 10Mg -[facility]#[address]-59(Niall) Reviewed 2014 12:00 AM COMPLETE CBC W/AUTO [...] INJ OCCIPITAL Reviewed 10/01/2010 12:00 AM Kenalog Nz-[address]-20 ANNA Reviewed 07/25/2014 12:00 AM THER/PROPH/DIAG INJ [...] 0.60 mg/dLCALCIUM 10.90 mg/ dLeGFR >60 mL/min/1.73 [id number] 45.0 U/L 08/31/2013 10:54 AM GLUCOSE 255.0 [...] 0.40 mg/ dLCALCIUM 10.60 mg/dLeGFR >60 mL/min/1.73 [id number] 369.0 mg/ dLCHOLESTEROL 153.0 mg/dLHDL 26.0 mg/dLLDL [...] BILI 0.30 mg/dLCALCIUM 10.0 mg/dLeGFR >60 mL/min/1.73 [id number] YELLOW APPEARANCE CLEAR SPEC GRAV 1.010 pH 5.5 PROTEIN NEGATIVE GLUCOSE NEGATIVE KETONE NEGATIVE BILIRUBIN NEGATIVE BLOOD NEGATIVE NITRITE NEGATIVE LEUK SCREEN NEGATIVE Est Avg Glucose 134.1 mg/dLMICROALBUMIN UR <0.5 MG/DL 02/13/2015 4:38 PM RMSF, IgG, EIA Negative [facility] Spotted Fever,IgM 0.51 E. chaffeensis [...] 141 Influenza 04/24/2014 sanofi pasteur PMC Fluzone [id number] Intramuscular Left Upper Arm 02/27/2014 01/15/2014 141 Influenza 02/13/2015 sanofi pasteur PMC Fluzone [id number] Intramuscular Left Deltoid 02/13/2015 01/03/2015 140 History [...] lower extremity, right Jun 06 2015 10:08AM Payers Insurance Name Company Name Plan Name Plan Number Policy Number Policy Group Number Start Date Medicare Part A Medicare Part A [id number] N/A 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 - C [id number] [facility] Comm Plan of [id number] Wednesday, 2012 Medicare Part B Medicare [facility] [id number] Monday, 2000 [place] Medical Assistance Program [place] Medical [place] Pro[place] [id number] Tuesday, 2009 History of Encounters Visit Date Visit Type Provider 06/06/2015 Office visit Heena Dumont MD 06/06/2015 Office visit Kaylynn Mendez ELECTRONIC TECH 06/02/2015 Office visit Kaylynn Mendez ELECTRONIC TECH 05/26/2015 Office visit Kaylynn Mendez ELECTRONIC TECH 05/20/2015 Office visit Kaylynn Mendez ELECTRONIC TECH 05/08/2015 Office visit Heena Dumont MD 05/06/2015 Office visit Kaylynn Mendez ELECTRONIC TECH 04/29/2015 Office visit Kaylynn Mendez ELECTRONIC TECH 03/27/2015 Voided Brittni Yanez ELECTRONIC TECH 03/21/2015 Office visit Heena Dumont MD 03/12/2015 Office visit Kaylynn Mendez ELECTRONIC TECH 02/26/2015 Office visit Brittni Yanez ELECTRONIC TECH 02/13/2015 Office visit Heena Dumont MD 01/15/2015 Office visit Brittni Yanez ELECTRONIC TECH 01/13/2015 Office visit Heena Dumont MD 01/08/[address] Carol Fowler MD 01/01/2015 Office visit Brittni Yanez ELECTRONIC TECH 12/13/2014 Office visit Heean Dumont MD 11/27/2014 Office visit Kaylynn Mendez ELECTRONIC TECH 11/14/2014 Office visit Heena Dumont MD 10/18/2014 Office visit Heena Dumont MD 10/17/2014 Hospital John Hoskins MD 10/09/2014 Office visit Heena Dumont MD 09/25/2014 Office visit Heena Dumont MD 09/17/2014 Office visit Kaylynn Mendez ELECTRONIC TECH 09/04/2014 Office visit Heena Dumont MD 08/28/2014 Office visit Kaylynn Mendez ELECTRONIC TECH 08/23/2014 [facility] John Hoskins MD 08/01/2014 Office visit Kaylynn Mendez ELECTRONIC TECH 07/29/2014 Office visit Heena Dumont MD 07/25/2014 Nurse visit Heena uDmont MD 07/17/2014 Office visit Kaylynn Mendez ELECTRONIC TECH 07/11/2014 Office visit Heena Dumont MD 07/01/2014 Office visit Heena Dumont MD 06/25/2014 Office visit Kaylynn Mendez ELECTRONIC TECH 06/12/2014 Office visit Kaylynn Mendez ELECTRONIC TECH 06/06/2014 Office visit Kaylynn Mendez ELECTRONIC TECH 05/27/2014 Office visit Heena Dumont MD 04/20/2014 Office visit Yesica Falcon ELECTRONIC TECH 03/29/2014 Office visit Na Jones ELECTRONIC TECH 03/15/2014 Office visit Heena Dumont MD 2014 Office visit Heena Dumont MD 2014 [facility] John Hoskins MD 02/27/2014 Nurse visit Heena Dumont MD 02/13/2014 Office visit Lena El ELECTRONIC TECH 02/07/2014 Office visit Heena Dumont MD 02/03/2014 Office visit Na Jones ELECTRONIC TECH 01/30/2014 Office visit Kaylynn Mendez ELECTRONIC TECH 01/24/2014 Office visit Sundeep Russell ELECTRONIC TECH 01/16/2014 Office visit Kaylynn Mendez ELECTRONIC TECH 01/10/2014 Nurse visit Kaylynn Mendez ELECTRONIC TECH 01/08/2014 Office visit Kaylynn Walker ELECTRONIC TECH 12/05/2013 Office visit Kaylynn Walker ELECTRONIC TECH 11/21/2013 Office visit Kaylynn Walker ELECTRONIC TECH 10/23/2013 Office visit Brittni Yanez ELECTRONIC TECH 10/17/2013 Nurse visit Heena Dumont MD 10/12/2013 Office visit Kaylynn Mendez ELECTRONIC TECH 10/02/2013 Office visit Heena Dumont MD 09/20/2013 Nurse visit Kaylynn Mendez ELECTRONIC TECH 09/20/2013 Voided Heena Dumont MD 09/14/2013 Office visit Kaylynn Mendez ELECTRONIC TECH 09/05/2013 Office visit Sundeep Russell ELECTRONIC TECH 09/04/2013 Nurse visit Kaylynn Mendez ELECTRONIC TECH 08/31/2013 Office visit Kaylynn Walker ELECTRONIC TECH 08/23/2013 Office visit Heena Dumont MD 08/10/2013 Office visit Kaylynn Walker ELECTRONIC TECH 07/25/2013 Office visit Kyalynn Walker ELECTRONIC TECH 07/18/2013 Office visit Kaylynn Walker ELECTRONIC TECH 07/12/2013 Office visit Kaylynn Walker ELECTRONIC TECH 06/28/2013 Nurse visit Kaylynn Walker ELECTRONIC TECH 06/14/2013 Nurse visit Kaylynn Walker ELECTRONIC TECH 06/08/2013 Nurse visit Kaylynn Walker ELECTRONIC TECH 05/31/2013 Nurse visit Chadd Norris DO 05/18/2013 Office visit Terese Davidson MD 05/16/2013 Office visit Kaylynn Walker ELECTRONIC TECH 05/09/2013 Office visit Kaylynn Walker ELECTRONIC TECH 04/29/2013 [facility] John Hoskins MD 04/25/2013 Nurse visit Kaylynn Walker ELECTRONIC TECH 04/17/2013 Office visit Kaylynn Walker ELECTRONIC TECH 04/03/2013 Nurse visit Kaylynn Walker ELECTRONIC TECH 04/03/2013 Office visit Terese Davidson MD 03/28/2013 Office visit Sundeep Russell ELECTRONIC TECH 03/21/2013 Office visit Kaylynn Mendez ELECTRONIC TECH 03/20/2013 Office visit Terese Davidson MD 03/14/2013 Nurse visit Kaylynn Walker ELECTRONIC TECH 03/05/2013 Nurse visit Kaylynn Walker ELECTRONIC TECH 02/19/2013 Office visit Terese Davidson MD 02/16/2013 Nurse visit Kaylynn Walker ELECTRONIC TECH 02/09/2013 Office visit Sundeep Russell ELECTRONIC TECH 02/08/2013 Nurse visit Kaylynn Walker ELECTRONIC TECH 02/01/2013 Nurse visit Kaylynn Walker ELECTRONIC TECH 01/26/2013 Nurse visit Sabrina Mendez 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 01/25/2013 Office visit Kaylynn Walker ELECTRONIC TECH 01/22/2013 Office visit Yoan Castaneda MD 01/18/2013 Nurse visit Kaylynn Walker ELECTRONIC TECH 01/11/2013 Nurse visit Kaylynn Walker ELECTRONIC TECH 01/05/2013 Nurse visit Kaylynn Walker ELECTRONIC TECH 12/29/2012 Office visit Kaylynn Walker ELECTRONIC TECH 11/27/2012 Office visit Kaylynn Mendez ELECTRONIC TECH 11/08/2012 Office visit Odell Tierney MD 11/08/2012 Voided Odell Tierney MD 11/07/2012 Office visit Kaylynn Walker ELECTRONIC TECH 10/31/2012 [facility] John Hoskins MD 10/31/2012 Office visit Kaylynn Walker ELECTRONIC TECH 10/19/2012 Office visit Genoveva Ayala ELECTRONIC TECH 10/10/2012 Office visit Kaylynn Walker ELECTRONIC TECH 10/03/2012 Office visit Kaylynn Mendez ELECTRONIC TECH 09/26/2012 Office visit Kaylynn Mendez ELECTRONIC TECH 09/06/2012 Office visit Kaylynn Mendez ELECTRONIC TECH 09/06/2012 Office visit Odell Tierney MD 08/31/2012 Voided Kaylynn Mendez ELECTRONIC TECH 07/28/2012 Office visit Kaylynn Mendez ELECTRONIC TECH 07/27/2012 Office visit David Ar DO 07/20/2012 [facility] David Joyner DO 07/13/2012 Hospital David Jazieluman DO 07/11/2012 Office visit Kaylynn Mendez ELECTRONIC TECH 06/27/2012 [facility] Odell Tierney MD 06/21/2012 Office visit David Joyner DO 06/21/2012 Office visit Odell Tierney MD 06/20/2012 Office visit Brittni Yanez ELECTRONIC TECH 06/06/2012 Office visit Odell Tierney MD 05/03/2012 Office visit Kaylynn Mendez ELECTRONIC TECH 04/28/2012 Office visit Brittni Yanez ELECTRONIC TECH 04/11/2012 Office visit Kaylynn Mendez ELECTRONIC TECH 04/06/2012 [facility] John Hoskins MD 03/30/2012 Office visit Kaylynn Mendez ELECTRONIC TECH 03/15/2012 Office visit Kaylynn Mendez ELECTRONIC TECH 03/15/2012 Office visit Odell Tierney MD 02/09/2012 Office visit Kaylynn Mendez ELECTRONIC TECH 12/23/2011 Office visit Kaylynn Mendez ELECTRONIC TECH 11/02/2011 Office visit Kaylynn Mendez ELECTRONIC TECH 10/14/2011 Office visit Kaylynn Mendez ELECTRONIC TECH 09/27/2011 Office visit Kaylynn Mendez ELECTRONIC TECH 08/19/2011 [facility] John Hoskins MD 08/18/2011 [facility] John Hoskins MD 08/18/2011 Office visit Kaylynn Mendez ELECTRONIC TECH 08/02/2011 Office visit Kaylynn Mendez ELECTRONIC TECH 07/08/2011 Office visit Kaylynn Mendez ELECTRONIC TECH 07/05/2011 Office visit Odell Tierney MD 06/15/2011 Office visit Kaylynn Mendez ELECTRONIC TECH 05/14/2011 Office visit Kaylynn Mendez ELECTRONIC TECH 05/11/2011 Office visit Odell Tierney MD 04/28/2011 Office visit Kaylynn Mendez ELECTRONIC TECH 03/02/2011 Office visit Chadd Norris DO 02/17/2011 [...] 12/23/2009 Surgery Yoan Castaneda MD 12/16/2009 Surgery Yaon Castaneda MD 12/10/2009 Office visit Odell Tierney MD 11/26/2009 Office visit Yoan Castaneda MD 11/17/2009 Office visit Odell Tierney MD 11/10/2009 Office visit Chadd Norris DO
--- OUTSIDE RECORDS SUMMARY | 2018-05-09 21:06 | XMS REPORT ---
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 omyushex-uwkvjcvdj-HO 3.5-10,000-1 mg/mL-unit/mL-% otic drops,suspension 201607/23/2016 instill 4 [...] Reviewed 04/28/2011 12:00 AM Decadron 1 mg [facility]#[id number] (Jr) Reviewed 04/28/2011 12:00 AM Depo-Medrol 80 mg ND#[id number]-Ldglopbu Reviewed 09/02/2015 12:00 AM Toradol 60 Mg ND#2614-7680-04 Reviewed 09/02/2015 12:00 AM Phenergan, Up to 50 Mg RHC Medicaid Reviewed 09/16/2015 12:00 AM Toradol 60 Mg [facility]#0699-3870-59 Reviewed 09/16/2015 12:00 AM Phenergan Up to 50 mg RHC Medicare Reviewed 05/11/2011 12:00 AM N BLOCK INJ OCCIPITAL Reviewed 05/11/2011 12:00 AM Kenalog Bx-[address]-20 ANNA Reviewed 11/13/2015 12:00 AM ASSAY OF [...] INJ SC/IM Reviewed 07/08/2011 12:00 AM Toradol,15mg ND#[id number], Hetmejiaer Reviewed 07/08/2011 12:00 AM Phenergan 50 Mg Im [facility] 3584-2333-63 [place] Reviewed 01/21/2016 12:00 AM ECG MONIT/REPRT UP TO 48 HRS Returned 08/02/2011 12:00 AM THER/PROPH/DIAG INJ SC/IM Reviewed 08/02/2011 12:00 AM Decadron 1 mg [facility]#[id number] (Jr) Reviewed 08/02/2011 12:00 AM Depo-Medrol 80 mg [facility]#[id number]-Vcxoxvpz Reviewed 03/05/2016 12:00 AM COMPLETE CBC W/AUTO DIFF WBC Reviewed 03/05/2016 12:00 AM STREP A ASSAY W/OPTIC Reviewed 03/05/2016 12:00 AM C-REACTIVE PROTEIN Reviewed 03/18/2016 12:00 AM [facility] MEDICARE - flu vaccine administration [...] Reviewed 09/27/2011 12:00 AM Depo-Medrol 80 mg [facility]#[id number]-Nuwrpcvz Reviewed 09/27/2011 12:00 AM Depo-Medrol 40 mg [facility]#[id number] Reviewed 07/06/2016 12:00 AM CHEST X-RAY 4/> [...] Reviewed 12/23/2011 12:00 AM Decadron 1 mg [facility]#[id number] (Jr) Reviewed 12/23/2011 12:00 AM Depo-Medrol 80 mg [facility]#[id number]-Sydbauou Reviewed 11/02/2016 11:45 AM URINALYSIS AUTO W/O [...] Reviewed 02/09/2012 12:00 AM Decadron 1 mg [facility]#20859224910 (Jr) Reviewed 02/09/2012 12:00 AM Depo-Medrol 80 mg [facility]#46041860745-Imenttcm Reviewed 03/15/2012 12:00 AM N BLOCK INJ OCCIPITAL Reviewed 03/15/2012 12:00 AM Kenalog We-[address]-20 ANNA Reviewed 04/11/2012 12:00 AM COMPLETE CBC W/AUTO DIFF WBC Reviewed 04/11/2012 12:00 AM COMPREHEN METABOLIC PANEL Reviewed 04/11/2012 12:00 AM LIPID PANEL Reviewed 04/11/2012 12:00 AM ASSAY THYROID STIM HORMONE Reviewed 04/11/2012 12:00 AM DESTRUCT PREMALG LES 2-14 Reviewed 06/20/2012 12:00 AM THER/PROPH/DIAG INJ SC/IM Reviewed 06/20/2012 12:00 AM Decadron, Per 1 Mg ND# [address]-82 Reviewed 06/20/2012 12:00 AM Depo-Medrol, Per 80 Mg [facility]#7210-8345-51 Reviewed 09/06/2012 12:00 AM N BLOCK INJ OCCIPITAL Reviewed 09/06/2012 12:00 AM Kenalog Jg-98[address]-1972-20 ANNA Reviewed 09/06/2012 12:00 AM X-RAY EXAM RIBS UNI 2 VIEWS Reviewed 09/26/2012 12:00 AM THER/PROPH/DIAG INJ SC/IM Reviewed 09/26/2012 12:00 AM Decadron, Per 1 Mg N[facility]# [address]-53 Reviewed 09/26/2012 12:00 AM Depo-Medrol, Per 80 Mg N[facility]#1745-9084-86 Reviewed 10/03/2012 12:00 AM URINALYSIS AUTO W/O SCOPE Reviewed 10/03/2012 12:00 AM THER/PROPH/DIAG INJ SC/IM Reviewed 10/03/2012 12:00 AM Toradol 60 Mg ND#0293-1350-81 Reviewed 10/03/2012 12:00 AM Phenergan, 25Mg ND#9368-0866-95 Reviewed 10/19/2012 12:00 AM N BLOCK INJ OCCIPITAL Reviewed 10/19/2012 12:00 AM Kenalog, Per 10 Mg ND#0578-8789-67 Reviewed 10/19/2012 12:00 AM Toradol 30 Mg ND#6802-4261-78 Reviewed 10/19/2012 12:00 AM THER/PROPH/DIAG INJ SC/IM Reviewed 10/31/2012 12:00 AM COMPLETE CBC W/AUTO DIFF WBC Reviewed 10/31/2012 12:00 AM COMPREHEN METABOLIC PANEL Reviewed 10/31/2012 12:00 AM LIPID PANEL Reviewed 10/31/2012 12:00 AM ELECTROCARDIOGRAM COMPLETE Reviewed 11/03/2012 12:[address] THORAX W/O & W/DYE Reviewed 11/08/2012 12:00 AM N BLOCK INJ OCCIPITAL Reviewed 11/08/2012 12:00 AM Kenalog Km-[address]-20 ANNA Reviewed 11/27/2012 12:00 AM COMPLETE CBC [...] 01/25/2013 12:00 AM Decadron, Per 1 Mg [facility]# [address]-37 Reviewed 01/25/2013 12:00 AM Depo-Medrol, Per 80 Mg [facility]#8576-9204-09 Reviewed 01/26/2013 12:00 AM IMMUNOTHERAPY ONE INJECTION [...] 05/16/2013 12:00 AM Decadron, Per 1 Mg [facility]# [address]-10 Reviewed 05/16/2013 12:00 AM Depo-Medrol, Per 80 Mg [facility]#0517-8699-84 Reviewed 05/31/2013 12:00 AM IMMUNOTHERAPY INJECTIONS Reviewed 06/08/2013 12:00 AM IMMUNOTHERAPY INJECTIONS Reviewed 06/14/2013 12:00 AM IMMUNOTHERAPY INJECTIONS Reviewed 06/28/2013 12:00 AM IMMUNOTHERAPY INJECTIONS Reviewed 07/12/2013 12:00 AM X-RAY EXAM RIBS UNI 2 VIEWS Reviewed 07/18/2013 12:00 AM Toradol 60 Mg [facility]#2358-0476-88 Reviewed 07/18/2013 12:00 AM THER/PROPH/DIAG INJ SC/IM Reviewed 08/23/2013 12:00 AM COMPLETE CBC W/AUTO DIFF WBC Reviewed 08/23/2013 12:00 AM COMPREHEN METABOLIC PANEL Reviewed 08/23/2013 12:00 AM LIPID PANEL Reviewed 08/31/2013 12:00 AM X-RAY EXAM OF LOWER LEG Reviewed 09/04/2013 12:00 AM IMMUNOTHERAPY INJECTIONS Reviewed 09/14/2013 12:00 AM THER/PROPH/DIAG INJ SC/IM Reviewed 09/14/2013 12:00 AM Decadron, Per 1 Mg [facility]# [address]-41 Reviewed 09/14/2013 12:00 AM Depo-Medrol, Per 80 Mg [facility]#4204-7968-84 Reviewed 09/20/2013 12:00 AM IMMUNOTHERAPY INJECTIONS Reviewed [...] INJ OCCIPITAL Reviewed 12/10/2009 12:00 AM Kenalog Wl-[address]-20 ANNA Reviewed 12/16/2009 12:00 AM HIV-1ANTIBODY Reviewed 12/16/2009 12:00 AM COMPLETE CBC W/AUTO DIFF WBC Reviewed 12/16/2009 12:00 AM METABOLIC PANEL TOTAL CA Reviewed 12/16/2009 12:00 AM Type and screen Reviewed 12/16/2009 12:00 AM PROTHROMBIN TIME Reviewed 12/16/2009 12:00 AM THROMBOPLASTIN TIME PARTIAL Reviewed 03/18/2010 12:00 AM DRAIN/INJ JOINT/BURSA W/O US Reviewed 03/18/2010 12:00 AM Kenalog Ek-[address]-20 ANNA Reviewed 11/21/2013 12:00 AM RADEX HAND MINIMUM 3 VIEWS Reviewed 06/03/2010 12:00 AM INJ TRIGGER POINT 1/2 MUSCL Reviewed 06/03/2010 12:00 AM Kenalog per 10Mg Im-Ndc#[address]-74(Niall) Reviewed 12/05/2013 12:00 AM COMPLETE CBC W/AUTO [...] Reviewed 07/23/2010 12:00 AM Kenalog per 10Mg Im-Ndc#[address]-50(Niall) Reviewed 2014 12:00 AM COMPLETE CBC W/AUTO [...] INJ OCCIPITAL Reviewed 10/01/2010 12:00 AM Kenalog Me-[address]-20 ANNA Reviewed 07/25/2014 12:00 AM THER/PROPH/DIAG INJ [...] Quant,IgM <0.80 RMSF , IgG, EIA Negative [facility] Spotted Fever,IgM 0.51 E. chaffeensis (HME) [...] 141 Influenza 04/24/2014 sanofi pasteur PMC Fluzone [id number] Intramuscular Left Upper Arm 02/27/2014 01/15/2014 141 Influenza 02/13/2015 sanofi pasteur PMC Fluzone [id number] Intramuscular Left Deltoid 02/13/2015 01/03/2015 140 Tdap 06/06/2015 [employer] SKB BOOSTRIX [id number] Intramuscular Left Deltoid 06/06/2015 07/23/2014 115 Influenza 03/18/2016 sanofi pasteur PMC Fluzone [id number] Intramuscular Left Deltoid 03/17/2016 01/03/2015 141 History [...] on left side Dec 15 2016 10:47AM Payers Insurance Name Company Name Plan Name Plan Number Policy Number Policy Group Number Start Date Medicare RHC Medicare RHC [id number] N/A [facility] - RHC - [facility] RHC Comm [id number] N/A Medicare Part A Medicare - Lab/Xray [id number] N/A Medicare Part B Medicare Of [place] [id number] Monday, February 28, 2000 [place] [employer] [facility] [place] [employer] [place] [id number] Tuesday, November 10, 2009 Medicare Part A Medicare Part A [id number] N/A [place] [employer] - [place] [employer] - RHC [id number] May [facility] Comm Plan of [id number] Wednesday, May 30, 2012 History of Encounters Visit Date Visit Type Provider 12/15/2016 Office visit Kaylynn Mendez APRN 12/02/2016 Office visit Heena Dumont MD 11/23/2016 Office visit Kaylynn Mendez APRN 11/17/2016 Office visit Kaylynn Mendez APRN 11/05/2016 Office visit Riccardo Cardoza MD 11/02/2016 Office visit Heena Dumont MD 10/06/2016 Office visit Kaylynn Mendez APRN 09/22/2016 Office visit Heena Dumont MD 09/09/2016 Office visit Kaylynn Mendez DIRECTOR GLOBAL 08/27/2016 Office visit Riccardo Cardoza MD 08/26/2016 Office visit Heena Dumont MD 07/09/2016 Office visit Riccardo Cardoza MD 07/06/2016 Office visit Heena Dumont MD 06/18/2016 Office visit Kaylynn Mendez DIRECTOR GLOBAL 06/07/2016 Office visit Sundeep Russell DIRECTOR GLOBAL 06/04/2016 Office visit Heena Dumont MD 05/13/2016 Office visit Heena Dumont MD 05/03/2016 Office visit Heena Dumont MD 04/26/2016 Office visit Kaylynn Mendez DIRECTOR GLOBAL 04/14/2016 Office visit Heena Dumont MD 04/13/2016 Office visit Kaylynn Mendez DIRECTOR GLOBAL 04/02/2016 Office visit Lena El DIRECTOR GLOBAL 04/02/2016 Office visit Heena Dumont MD 03/26/2016 Office visit Yesica Falcon DIRECTOR GLOBAL 03/17/2016 Office visit Heena Dumont MD 03/05/2016 Office visit Kaylynn Mendez DIRECTOR GLOBAL 02/16/2016 Office visit Heena Dumont MD 02/14/2016 Office visit Na Jones DIRECTOR GLOBAL 01/16/2016 Office visit Heena Dumont MD 12/16/2015 Office visit Heena Dumont MD 11/24/2015 Office visit Kaylynn Mendez DIRECTOR GLOBAL 11/18/2015 Office visit Heena Dumont MD 11/03/2015 Office visit Sundeep Russell DIRECTOR GLOBAL 10/20/2015 Office visit Kaylynn Mendez DIRECTOR GLOBAL 09/23/2015 Office visit Kaylynn Mendez DIRECTOR GLOBAL 09/16/[address] Pepe Figueroa MD 09/02/2015 Office visit Kaylynn Mendez DIRECTOR GLOBAL 09/01/2015 Office visit Kaylynn Mendez DIRECTOR GLOBAL 07/30/2015 Office visit Heena Dumont MD 07/15/2015 Office visit Kaylynn Mendez DIRECTOR GLOBAL 07/04/2015 Office visit Heena Dumont MD 06/06/2015 Office visit Heena Dumont MD 06/06/2015 Office visit Kaylynn Mendez DIRECTOR GLOBAL 06/02/2015 Office visit Kaylynn Walker DIRECTOR GLOBAL 05/26/2015 Office visit Kaylynn Walker DIRECTOR GLOBAL 05/20/2015 Office visit Kaylynn Walker DIRECTOR GLOBAL 05/08/2015 Office visit Heena Dumont MD 05/06/2015 Office visit Kaylynn Mendez DIRECTOR GLOBAL 04/29/2015 Office visit Kaylynn Walker DIRECTOR GLOBAL 03/27/2015 Voided Brittni Yanez DIRECTOR GLOBAL 03/21/2015 Office visit Heena Dumont MD 03/12/2015 Office visit Kaylynn Mendez DIRECTOR GLOBAL 02/26/2015 Office visit Brittni Yanez DIRECTOR GLOBAL 02/13/2015 Office visit Heena Dumont MD 01/15/2015 Office visit Brittni Yanez DIRECTOR GLOBAL 01/13/2015 Office visit Heena Dumont MD 01/08/[address] Carol Fowler MD 01/01/2015 Office visit Brittni Yanez DIRECTOR GLOBAL 12/13/2014 Office visit Heena Dumont MD 11/27/2014 Office visit Kaylynn Mendez DIRECTOR GLOBAL 11/14/2014 Office visit Heena Dumont MD 10/18/2014 Office visit Heena Dumont MD 10/17/2014 [facility] Hos[facility] MD 10/09/2014 Office visit Heena Dumont MD 09/25/2014 Office visit Heena Dumont MD 09/17/2014 Office visit Kaylynn Mendez DIRECTOR GLOBAL 09/04/2014 Office visit Heena Dumont MD 08/28/2014 Office visit Kaylynn Mendez DIRECTOR GLOBAL 08/23/2014 [facility] John Hoskins MD 08/01/2014 Office visit Kaylynn Mendez DIRECTOR GLOBAL 07/29/2014 Office visit Heena Dumont MD 07/25/2014 Nurse visit Heena Dumont MD 07/17/2014 Office visit Kaylynn Mendez DIRECTOR GLOBAL 07/11/2014 Office visit Heena Dumont MD 07/01/2014 Office visit Heena Dumont MD 06/25/2014 Office visit Kaylynn Mendez DIRECTOR GLOBAL 06/12/2014 Office visit Kaylynn Mendez DIRECTOR GLOBAL 06/06/2014 Office visit Kaylynn Mendez DIRECTOR GLOBAL 05/27/2014 Office visit Heena Dumont MD 04/20/2014 Office visit Yesica Falcon DIRECTOR GLOBAL 03/29/2014 Office visit Na Jones DIRECTOR GLOBAL 03/15/2014 Office visit Heena Dumont MD 2014 Office visit Heena Dumont MD 2014 [facility] MD 02/27/2014 Nurse visit Heena Dumont MD 02/13/2014 Office visit Lena El DIRECTOR GLOBAL 02/07/2014 Office visit Heena Dumont MD 02/03/2014 Office visit Na Jones DIRECTOR GLOBAL 01/30/2014 Office visit Kaylynn Mendez DIRECTOR GLOBAL 01/24/2014 Office visit Sundeep Russell DIRECTOR GLOBAL 01/16/2014 Office visit Kaylynn Walker DIRECTOR GLOBAL 01/10/2014 Nurse visit Kaylynn Walker DIRECTOR GLOBAL 01/08/2014 Office visit Kaylynn Walker DIRECTOR GLOBAL 12/05/2013 Office visit Kaylynn Walker DIRECTOR GLOBAL 11/21/2013 Office visit Kaylynn Walker DIRECTOR GLOBAL 10/23/2013 Office visit Brittni Yanez DIRECTOR GLOBAL 10/17/2013 Nurse visit Heena Dumont MD 10/12/2013 Office visit Kaylynn Walker DIRECTOR GLOBAL 10/02/2013 Office visit Heena Dumotn MD 09/20/2013 Nurse visit Kaylynn Walker DIRECTOR GLOBAL 09/20/2013 Voided Heena Dumont MD 09/14/2013 Office visit Kaylynn Walker DIRECTOR GLOBAL 09/05/2013 Office visit Sundeep Russell DIRECTOR GLOBAL 09/04/2013 Nurse visit Kaylynn Walker DIRECTOR GLOBAL 08/31/2013 Office visit Kaylynn Walker DIRECTOR GLOBAL 08/23/2013 Office visit Heena Dumont MD 08/10/2013 Office visit Kaylynn Walker DIRECTOR GLOBAL 07/25/2013 Office visit Kaylynn Walker DIRECTOR GLOBAL 07/18/2013 Office visit Kaylynn Walker DIRECTOR GLOBAL 07/12/2013 Office visit Kaylynn Walker DIRECTOR GLOBAL 06/28/2013 Nurse visit Kaylynn Walker DIRECTOR GLOBAL 06/14/2013 Nurse visit Kaylynn Walker DIRECTOR GLOBAL 06/08/2013 Nurse visit Kaylynn Walker DIRECTOR GLOBAL 05/31/2013 Nurse visit Chadd Norris DO 05/18/2013 Office visit Terese Davidson MD 05/16/2013 Office visit Kaylynn Mendez DIRECTOR GLOBAL 05/09/2013 Office visit Kaylynn Walker DIRECTOR GLOBAL 04/29/2013 [facility] Eliseo Hoskins MD 04/25/2013 Nurse visit Kaylynn Walker DIRECTOR GLOBAL 04/17/2013 Office visit Kaylynn Walker DIRECTOR GLOBAL 04/03/2013 Nurse visit Kaylynn Mendez DIRECTOR GLOBAL 04/03/2013 Office visit Terese Davidson MD 03/28/2013 Office visit Sundeep Russell DIRECTOR GLOBAL 03/21/2013 Office visit Kaylynn Mendez DIRECTOR GLOBAL 03/20/2013 Office visit Terese Davidson MD 03/14/2013 Nurse visit Kaylynn Mendez DIRECTOR GLOBAL 03/05/2013 Nurse visit Kaylynn Mendez DIRECTOR GLOBAL 02/19/2013 Office visit Terese Davidson MD 02/16/2013 Nurse visit Kaylynn Mendez DIRECTOR GLOBAL 02/09/2013 Office visit Sundeep Russell DIRECTOR GLOBAL 02/08/2013 Nurse visit Kaylynn Mendez DIRECTOR GLOBAL 02/01/2013 Nurse visit Kaylynn Walker DIRECTOR GLOBAL 01/26/2013 Nurse visit Sabrina Mendez NUTRITIONAL SERVICES HOST 01/25/2013 Office visit Kaylynn Mendez DIRECTOR GLOBAL 01/22/2013 Office visit Yoan Castaneda MD 01/18/2013 Nurse visit Kaylynn Walker DIRECTOR GLOBAL 01/11/2013 Nurse visit Kaylynn Walker DIRECTOR GLOBAL 01/05/2013 Nurse visit Kaylynn Walker DIRECTOR GLOBAL 12/29/2012 Office visit Kaylynn Walker DIRECTOR GLOBAL 11/27/2012 Office visit Kaylynn Walker DIRECTOR GLOBAL 11/08/2012 Office visit Odell Tierney MD 11/08/2012 Voided Odell Tierney MD 11/07/2012 Office visit Kaylynn Andrea DIRECTOR GLOBAL 10/31/2012 [facility] John Hoskins MD 10/31/2012 Office visit Kaylynn Walker DIRECTOR GLOBAL 10/19/2012 Office visit Genoveva Ayala DIRECTOR GLOBAL 10/10/2012 Office visit Kaylynn Walker DIRECTOR GLOBAL 10/03/2012 Office visit Kaylynn Walker DIRECTOR GLOBAL 09/26/2012 Office visit Kaylynn Walker DIRECTOR GLOBAL 09/06/2012 Office visit Kaylynn Walker DIRECTOR GLOBAL 09/06/2012 Office visit Odell Tierney MD 08/31/2012 Voided Kaylynn Mendez DIRECTOR GLOBAL 07/28/2012 Office visit Kaylynn Mendez DIRECTOR GLOBAL 07/27/2012 Office visit David Joyner DO 07/20/2012 [facility] DO 07/13/2012 [facility] DO 07/11/2012 Office visit Kaylynn Mendez DIRECTOR GLOBAL 06/27/2012 [facility] Odell Tierney MD 06/21/2012 Office visit David Joyner DO 06/21/2012 Office visit Odell Tierney MD 06/20/2012 Office visit Brittni Yanez DIRECTOR GLOBAL 06/06/2012 Office visit Odell Tierney MD 05/03/2012 Office visit Kaylynn Mendez DIRECTOR GLOBAL 04/28/2012 Office visit Brittni Yanez DIRECTOR GLOBAL 04/11/2012 Office visit Kaylynn Mendez DIRECTOR GLOBAL 04/06/2012 [facility] John Hoskins MD 03/30/2012 Office visit Kaylynn Walker DIRECTOR GLOBAL 03/15/2012 Office visit Kaylynn Mendez DIRECTOR GLOBAL 03/15/2012 Office visit Odell Tierney MD 02/09/2012 Office visit Kaylynn Walker DIRECTOR GLOBAL 12/23/2011 Office visit Kaylynn Walker DIRECTOR GLOBAL 11/02/2011 Office visit Kaylynn Walker DIRECTOR GLOBAL 10/14/2011 Office visit Kaylynn Walker DIRECTOR GLOBAL 09/27/2011 Office visit Kaylynn Mendez DIRECTOR GLOBAL 08/19/2011 [facility] John Hoskins MD 08/18/2011 [facility] John Hoskins MD 08/18/2011 Office visit Kaylynn Mendez DIRECTOR GLOBAL 08/02/2011 Office visit Kaylynn Mendez DIRECTOR GLOBAL 07/08/2011 Office visit Kaylynn Andrea DIRECTOR GLOBAL 07/05/2011 Office visit Odell Tierney MD 06/15/2011 Office visit Kaylynn Mendez DIRECTOR GLOBAL 05/14/2011 Office visit Kaylynn Mendez DIRECTOR GLOBAL 05/11/2011 Office visit Odell Tierney MD 04/28/2011 Office visit Kaylynn Andrea DIRECTOR GLOBAL 03/02/2011 Office visit Chadd Norris DO 02/17/2011 [...]
--- OUTSIDE RECORDS SUMMARY | 2018-05-09 21:12 | XMS REPORT ---
Author Author Kaylynn Mendez Organization [facility] Address [address] [place], [place] [id number] Care Team Providers Care Scrape Gatherer Name Role Phone Kaylynn Mendez PCP Unavailable [...] 01/19/2016 APPLY BY EXTERNAL ROUTE ONCE DAILY [employer] IQ Meter OUYAcellaneous kit 01/21/2016 test 2 x daily, Dx: [...] 08/27/2014 use as directed for 99 days [place] 5-325 mg oral tablet 06/17/2014 06/27/2014 take [...] a day as needed for 30 days xwdnvhny-aouihcuzk-JS 3.5-10,000-1 mg/mL-unit/mL-% otic drops,suspension 201401/08/2015 instill 4 [...] Ok for similiar substitution or individual components. zjmofhnk-xjfsqjspa-VP 3.5-10,000-1 mg/mL-unit/mL-% otic drops,suspension 201607/23/2016 instill 4 [...] Decadron 1 mg [facility]#06183419983 (Jr) Reviewed 04/28/2011 12:00 AM Depo-Medrol 80 mg ND#[id number]-Sfszzllh Reviewed 09/02/2015 12:00 AM Toradol 60 Mg ND#1195-2025-95 Reviewed 09/02/2015 12:00 AM Phenergan, Up to 50 Mg RHC Medicaid Reviewed 09/16/2015 12:00 AM Toradol 60 Mg [facility]#3165-5708-57 Reviewed 09/16/2015 12:00 AM Phenergan Up to 50 mg RHC Medicare Reviewed 05/11/2011 12:00 AM N BLOCK INJ OCCIPITAL Reviewed 05/11/2011 12:00 AM Kenalog Mj-[address]-20 ANNA Reviewed 11/13/2015 12:00 AM ASSAY OF [...] INJ SC/IM Reviewed 07/08/2011 12:00 AM Toradol,15mg ND#[id number], Hetmejiaer Reviewed 07/08/2011 12:00 AM Phenergan 50 Mg Im [facility] 5991-9787-20 [place] Reviewed 01/21/2016 12:00 AM ECG MONIT/REPRT UP TO 48 HRS Returned 08/02/2011 12:00 AM THER/PROPH/DIAG INJ SC/IM Reviewed 08/02/2011 12:00 AM Decadron 1 mg [facility]#78302113230 (Jr) Reviewed 08/02/2011 12:00 AM Depo-Medrol 80 mg [facility]#[id number]-Kfxspmlc Reviewed 03/05/2016 12:00 AM COMPLETE CBC W/AUTO [...] Reviewed 09/27/2011 12:00 AM Depo-Medrol 80 mg [facility]#[id number]-Gudhsggq Reviewed 09/27/2011 12:00 AM Depo-Medrol 40 mg [facility]#8157342772 Reviewed 07/06/2016 12:00 AM CHEST X-RAY 4/> [...] Reviewed 12/23/2011 12:00 AM Decadron 1 mg NDC#[id number] (Jr) Reviewed 12/23/2011 12:00 AM Depo-Medrol 80 mg NDC#[id number]-Zwonzmlw Reviewed 11/02/2016 11:45 AM URINALYSIS AUTO W/O [...] Reviewed 02/09/2012 12:00 AM Decadron 1 mg NDC#55568862191 (Jr) Reviewed 02/09/2012 12:00 AM Depo-Medrol 80 mg NDC#28579315987-Osttyoch Reviewed 03/15/2012 12:00 AM N BLOCK INJ OCCIPITAL Reviewed 03/15/2012 12:00 AM Kenalog Nf-[address]-20 ANNA Reviewed 04/11/2012 12:00 AM COMPLETE CBC W/AUTO DIFF WBC Reviewed 04/11/2012 12:00 AM COMPREHEN METABOLIC PANEL Reviewed 04/11/2012 12:00 AM LIPID PANEL Reviewed 04/11/2012 12:00 AM ASSAY THYROID STIM HORMONE Reviewed 04/11/2012 12:00 AM DESTRUCT PREMALG LES 2-14 Reviewed 06/20/2012 12:00 AM THER/PROPH/DIAG INJ SC/IM Reviewed 06/20/2012 12:00 AM Decadron, Per 1 Mg ND# [address]-84 Reviewed 06/20/2012 12:00 AM Depo-Medrol, Per 80 Mg NDC#1343-2942-92 Reviewed 09/06/2012 12:00 AM N BLOCK INJ OCCIPITAL Reviewed 09/06/2012 12:00 AM Kenalog Zl-[address]-20 ANNA Reviewed 09/06/2012 12:00 AM X-RAY EXAM RIBS UNI 2 VIEWS Reviewed 09/26/2012 12:00 AM THER/PROPH/DIAG INJ SC/IM Reviewed 09/26/2012 12:00 AM Decadron, Per 1 Mg NDC# [address]-78 Reviewed 09/26/2012 12:00 AM Depo-Medrol, Per 80 Mg NDC#7795-6809-90 Reviewed 10/03/2012 12:00 AM URINALYSIS AUTO W/O SCOPE Reviewed 10/03/2012 12:00 AM THER/PROPH/DIAG INJ SC/IM Reviewed 10/03/2012 12:00 AM Toradol 60 Mg ND#2411-0143-33 Reviewed 10/03/2012 12:00 AM Phenergan, 25Mg ND#7297-6358-51 Reviewed 10/19/2012 12:00 AM N BLOCK INJ OCCIPITAL Reviewed 10/19/2012 12:00 AM Kenalog, Per 10 Mg ND#1617-6017-40 Reviewed 10/19/2012 12:00 AM Toradol 30 Mg ND#3635-8367-04 Reviewed 10/19/2012 12:00 AM THER/PROPH/DIAG INJ SC/IM Reviewed 10/31/2012 12:00 AM COMPLETE CBC W/AUTO DIFF WBC Reviewed 10/31/2012 12:00 AM COMPREHEN METABOLIC PANEL Reviewed 10/31/2012 12:00 AM LIPID PANEL Reviewed 10/31/2012 12:00 AM ELECTROCARDIOGRAM COMPLETE Reviewed 11/03/2012 12:[address] THORAX W/O & W/DYE Reviewed 11/08/2012 12:00 AM N BLOCK INJ OCCIPITAL Reviewed 11/08/2012 12:00 AM Kenalog Tt-[address]-20 ANNA Reviewed 11/27/2012 12:00 AM COMPLETE CBC [...] 1 Mg [facility]# [address]-52 Reviewed 01/25/2013 12:00 AM Depo-Medrol, Per 80 Mg [facility]#1731-3731-33 Reviewed 01/26/2013 12:00 AM IMMUNOTHERAPY ONE INJECTION [...] 1 Mg [facility]# [address]-75 Reviewed 05/16/2013 12:00 AM Depo-Medrol, Per 80 Mg [facility]#8574-4179-18 Reviewed 05/31/2013 12:00 AM IMMUNOTHERAPY INJECTIONS Reviewed 06/08/2013 12:00 AM IMMUNOTHERAPY INJECTIONS Reviewed 06/14/2013 12:00 AM IMMUNOTHERAPY INJECTIONS Reviewed 06/28/2013 12:00 AM IMMUNOTHERAPY INJECTIONS Reviewed 07/12/2013 12:00 AM X-RAY EXAM RIBS UNI 2 VIEWS Reviewed 07/18/2013 12:00 AM Toradol 60 Mg [facility]#5109-4797-27 Reviewed 07/18/2013 12:00 AM THER/PROPH/DIAG INJ SC/IM [...] 1 Mg [facility]# [address]-07 Reviewed 09/14/2013 12:00 AM Depo-Medrol, Per 80 Mg [facility]#2969-6146-22 Reviewed 09/20/2013 12:00 AM IMMUNOTHERAPY INJECTIONS Reviewed [...] INJ OCCIPITAL Reviewed 12/10/2009 12:00 AM Kenalog Qg-[address]-20 ANNA Reviewed 12/16/2009 12:00 AM HIV-1ANTIBODY Reviewed 12/16/2009 12:00 AM COMPLETE CBC W/AUTO DIFF WBC Reviewed 12/16/2009 12:00 AM METABOLIC PANEL TOTAL CA Reviewed 12/16/2009 12:00 AM Type and screen Reviewed 12/16/2009 12:00 AM PROTHROMBIN TIME Reviewed 12/16/2009 12:00 AM THROMBOPLASTIN TIME PARTIAL Reviewed 03/18/2010 12:00 AM DRAIN/INJ JOINT/BURSA W/O US Reviewed 03/18/2010 12:00 AM Kenalog Ow-[address]-20 ANNA Reviewed 11/21/2013 12:00 AM RADEX HAND MINIMUM 3 VIEWS Reviewed 06/03/2010 12:00 AM INJ TRIGGER POINT 1/2 MUSCL Reviewed 06/03/2010 12:00 AM Kenalog per 10Mg Im-Ndc#[address]-50(Niall) Reviewed 12/05/2013 12:00 AM COMPLETE CBC W/AUTO [...] Reviewed 07/23/2010 12:00 AM Kenalog per 10Mg Im-Ndc#[address]-55(Niall) Reviewed 2014 12:00 AM COMPLETE CBC W/AUTO [...] INJ OCCIPITAL Reviewed 10/01/2010 12:00 AM Kenalog Fm-[address]-20 ANAN Reviewed 07/25/2014 12:00 AM THER/PROPH/DIAG INJ SC/IM [...] <0.80 RMSF , IgG, EIA Negative [facility] Spotted Fever,IgM 0.51 E. chaffeensis (HME) [...] 141 Influenza 04/24/2014 sanofi pasteur PMC Fluzone [id number] Intramuscular Left Upper Arm 02/27/2014 01/15/2014 141 Influenza 02/13/2015 sanofi pasteur PMC Fluzone [id number] Intramuscular Left Deltoid 02/13/2015 01/03/2015 140 Tdap 06/06/2015 [employer] SKB BOOSTRIX [id number] Intramuscular Left Deltoid 06/06/2015 07/23/2014 115 Influenza 03/18/2016 sanofi pasteur PMC Fluzone [id number] Intramuscular Left Deltoid 03/17/2016 01/03/2015 141 History [...] Chronic pain syndrome Dec 15 2016 10:47AM Payers Insurance Name Company Name Plan Name Plan Number Policy Number Policy Group Number Start Date Medicare RHC Medicare RHC [id number] N/A [facility] [id number] N/A Medicare Part A Medicare - Lab/Xray [id number] N/A Medicare Part B Medicare Of [place] [id number] Monday, February 28, 2000 [place] [employer] [place]g [id number] Tuesday, November 10, 2009 Medicare Part A Medicare Part A [id number] N/A [place] 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 - 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 [place] 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 - RHC [id number] [facility] Comm Plan of [id number] Wednesday, May 30, 2012 History of Encounters Visit Date Visit Type Provider 12/15/2016 Office visit Kaylynn Mendez APRN 12/02/2016 Office visit Heena Dumont MD 11/23/2016 Office visit Kaylynn Mendez APRN 11/17/2016 Office visit Kaylynn Mendez APRN 11/05/2016 Office visit Riccardo Cardoza MD 11/02/2016 Office visit Heena Dumont MD 10/06/2016 Office visit Kaylynn Mendez WIND TURBINE TECHNICIAN 09/22/2016 Office visit Heena Dumont MD 09/09/2016 Office visit Kaylynn Mendez WIND TURBINE TECHNICIAN 08/27/2016 Office visit Riccardo Cardoza MD 08/26/2016 Office visit Heena Dumont MD 07/09/2016 Office visit Riccardo Cardoza MD 07/06/2016 Office visit Heena Dumont MD 06/18/2016 Office visit Kaylynn Mendez WIND TURBINE TECHNICIAN 06/07/2016 Office visit Sundeep Russell WIND TURBINE TECHNICIAN 06/04/2016 Office visit Heena Dumont MD 05/13/2016 Office visit Heena Dumont MD 05/03/2016 Office visit Heena Dumont MD 04/26/2016 Office visit Kaylynn Mendez WIND TURBINE TECHNICIAN 04/14/2016 Office visit Heena Dumont MD 04/13/2016 Office visit Kaylynn Mendez WIND TURBINE TECHNICIAN 04/02/2016 Office visit Lena El WIND TURBINE TECHNICIAN 04/02/2016 Office visit Heena Dumont MD 03/26/2016 Office visit Yesica Falcon WIND TURBINE TECHNICIAN 03/17/2016 Office visit Heena Dumont MD 03/05/2016 Office visit Kaylynn Mendez WIND TURBINE TECHNICIAN 02/16/2016 Office visit Heena Dumont MD 02/14/2016 Office visit Na Jones WIND TURBINE TECHNICIAN 01/16/2016 Office visit Heena Dumont MD 12/16/2015 Office visit Heena Dumont MD 11/24/2015 Office visit Kaylynn Mendez WIND TURBINE TECHNICIAN 11/18/2015 Office visit Heena Dumont MD 11/03/2015 Office visit Sundeep Russell WIND TURBINE TECHNICIAN 10/20/2015 Office visit Kaylynn Mendez WIND TURBINE TECHNICIAN 09/23/2015 Office visit Kaylynn Mendez WIND TURBINE TECHNICIAN 09/16/[address] Pepe Figueroa MD 09/02/2015 Office visit Kaylynn Mendez WIND TURBINE TECHNICIAN 09/01/2015 Office visit Kaylynn Mendez WIND TURBINE TECHNICIAN 07/30/2015 Office visit Heena Dumont MD 07/15/2015 Office visit Kaylynn Mendez WIND TURBINE TECHNICIAN 07/04/2015 Office visit Heena Dumont MD 06/06/2015 Office visit Heena Dumont MD 06/06/2015 Office visit Kaylynn Mendez WIND TURBINE TECHNICIAN 06/02/2015 Office visit Kaylynn Mendez WIND TURBINE TECHNICIAN 05/26/2015 Office visit Kaylynn Mendez WIND TURBINE TECHNICIAN 05/20/2015 Office visit Kaylynn Mendez WIND TURBINE TECHNICIAN 05/08/2015 Office visit Heena Dumont MD 05/06/2015 Office visit Kaylynn Mendez WIND TURBINE TECHNICIAN 04/29/2015 Office visit Kaylynn Mendez WIND TURBINE TECHNICIAN 03/27/2015 Voided Brittni Yanez WIND TURBINE TECHNICIAN 03/21/2015 Office visit Heena Dumont MD 03/12/2015 Office visit Kaylynn Mendez WIND TURBINE TECHNICIAN 02/26/2015 Office visit Brittni Yanez WIND TURBINE TECHNICIAN 02/13/2015 Office visit Heena Dumont MD 01/15/2015 Office visit Brittni Yanez WIND TURBINE TECHNICIAN 01/13/2015 Office visit Heena Dumont MD 01/08/[address] Carol Fowler MD 01/01/2015 Office visit Brittni Yanez WIND TURBINE TECHNICIAN 12/13/2014 Office visit Heena Dumont MD 11/27/2014 Office visit Kaylynn Mendez WIND TURBINE TECHNICIAN 11/14/2014 Office visit Heena Dumont MD 10/18/2014 Office visit Heena Dumont MD 10/17/2014 [facility] Hoksins MD 10/09/2014 Office visit Heena Dumont MD 09/25/2014 Office visit Heena Dumont MD 09/17/2014 Office visit Kaylynn Mendez WIND TURBINE TECHNICIAN 09/04/2014 Office visit Heena Dumont MD 08/28/2014 Office visit Kaylynn Mendez WIND TURBINE TECHNICIAN 08/23/2014 [facility] John Hoskins MD 08/01/2014 Office visit Kaylynn Mendez WIND TURBINE TECHNICIAN 07/29/2014 Office visit Heena Dumont MD 07/25/2014 Nurse visit Heena Dumont MD 07/17/2014 Office visit Kaylynn Mendez WIND TURBINE TECHNICIAN 07/11/2014 Office visit Heena Dumont MD 07/01/2014 Office visit Heena Dumont MD 06/25/2014 Office visit Kaylynn Mendez WIND TURBINE TECHNICIAN 06/12/2014 Office visit Kaylynn Mendez WIND TURBINE TECHNICIAN 06/06/2014 Office visit Kaylynn Mendez WIND TURBINE TECHNICIAN 05/27/2014 Office visit Heena Dumont MD 04/20/2014 Office visit Yesica Falcon WIND TURBINE TECHNICIAN 03/29/2014 Office visit Na Jones WIND TURBINE TECHNICIAN 03/15/2014 Office visit Heena Dumont MD 2014 Office visit Heena Dumont MD 2014 [facility] Hoskins MD 02/27/2014 Nurse visit Heena Dumont MD 02/13/2014 Office visit Lena El WIND TURBINE TECHNICIAN 02/07/2014 Office visit Heena Dumont MD 02/03/2014 Office visit Na Jones WIND TURBINE TECHNICIAN 01/30/2014 Office visit Kaylynn Mendez WIND TURBINE TECHNICIAN 01/24/2014 Office visit Sundeep Russell WIND TURBINE TECHNICIAN 01/16/2014 Office visit Kaylynn Walker WIND TURBINE TECHNICIAN 01/10/2014 Nurse visit Kaylynn Walker WIND TURBINE TECHNICIAN 01/08/2014 Office visit Kaylynn Walker WIND TURBINE TECHNICIAN 12/05/2013 Office visit Kaylynn Walker WIND TURBINE TECHNICIAN 11/21/2013 Office visit Kaylynn Walker WIND TURBINE TECHNICIAN 10/23/2013 Office visit Brittni Yanez WIND TURBINE TECHNICIAN 10/17/2013 Nurse visit Heena Dumont MD 10/12/2013 Office visit Kaylynn Mendez WIND TURBINE TECHNICIAN 10/02/2013 Office visit Heena Dumont MD 09/20/2013 Nurse visit Kaylynn Mendez WIND TURBINE TECHNICIAN 09/20/2013 Voided Heena uDmont MD 09/14/2013 Office visit Kaylynn Mendez WIND TURBINE TECHNICIAN 09/05/2013 Office visit Sundeep Russell WIND TURBINE TECHNICIAN 09/04/2013 Nurse visit Kaylynn Walker WIND TURBINE TECHNICIAN 08/31/2013 Office visit Kaylynn Walker WIND TURBINE TECHNICIAN 08/23/2013 Office visit Heena Dumont MD 08/10/2013 Office visit Kaylynn Mendez WIND TURBINE TECHNICIAN 07/25/2013 Office visit Kaylynn Walker WIND TURBINE TECHNICIAN 07/18/2013 Office visit Kaylynn Walker WIND TURBINE TECHNICIAN 07/12/2013 Office visit Kaylynn Walker WIND TURBINE TECHNICIAN 06/28/2013 Nurse visit Kaylynn Walker WIND TURBINE TECHNICIAN 06/14/2013 Nurse visit Kaylynn Mendez WIND TURBINE TECHNICIAN 06/08/2013 Nurse visit Kaylynn Mendez WIND TURBINE TECHNICIAN 05/31/2013 Nurse visit Chadd Norris DO 05/18/2013 Office visit Terese Davidson MD 05/16/2013 Office visit Kaylynn Mendez WIND TURBINE TECHNICIAN 05/09/2013 Office visit Kaylynn Mendez WIND TURBINE TECHNICIAN 04/29/2013 [facility] John Hoskins MD 04/25/2013 Nurse visit Kaylynn Walker WIND TURBINE TECHNICIAN 04/17/2013 Office visit Kaylynn Walker WIND TURBINE TECHNICIAN 04/03/2013 Nurse visit Kaylynn Walker WIND TURBINE TECHNICIAN 04/03/2013 Office visit Terese Davidson MD 03/28/2013 Office visit Sundeep Russell WIND TURBINE TECHNICIAN 03/21/2013 Office visit Kaylynn Mendez WIND TURBINE TECHNICIAN 03/20/2013 Office visit Terese Davidson MD 03/14/2013 Nurse visit Kaylynn Mendez WIND TURBINE TECHNICIAN 03/05/2013 Nurse visit Kaylynn Mendez WIND TURBINE TECHNICIAN 02/19/2013 Office visit Terese Davidson MD 02/16/2013 Nurse visit Kaylynn Mendez WIND TURBINE TECHNICIAN 02/09/2013 Office visit Sundeep Russell WIND TURBINE TECHNICIAN 02/08/2013 Nurse visit Kaylynn Mendez WIND TURBINE TECHNICIAN 02/01/2013 Nurse visit Kaylynn Walker WIND TURBINE TECHNICIAN 01/26/2013 Nurse visit Sabrina Andrea PATIENT SUPPORT ASSISTANT 01/25/2013 Office visit Kaylynn Walker WIND TURBINE TECHNICIAN 01/22/2013 Office visit Yoan Castaneda MD 01/18/2013 Nurse visit Kaylynn Walker WIND TURBINE TECHNICIAN 01/11/2013 Nurse visit Kaylynn Walker WIND TURBINE TECHNICIAN 01/05/2013 Nurse visit Kaylynn Walker WIND TURBINE TECHNICIAN 12/29/2012 Office visit Kaylynn Walker WIND TURBINE TECHNICIAN 11/27/2012 Office visit Kaylynn Walker WIND TURBINE TECHNICIAN 11/08/2012 Office visit Odell Tierney MD 11/08/2012 Voided Odell Tierney MD 11/07/2012 Office visit Kaylynn Mendez WIND TURBINE TECHNICIAN 10/31/2012 [facility] John Hoskins MD 10/31/2012 Office visit Kaylynn Walker WIND TURBINE TECHNICIAN 10/19/2012 Office visit Genoveva Ayala WIND TURBINE TECHNICIAN 10/10/2012 Office visit Kaylynn Walker WIND TURBINE TECHNICIAN 10/03/2012 Office visit Kaylynn Walker WIND TURBINE TECHNICIAN 09/26/2012 Office visit Kaylynn Mendez WIND TURBINE TECHNICIAN 09/06/2012 Office visit Kaylynn Mendez WIND TURBINE TECHNICIAN 09/06/2012 Office visit Odell Tierney MD 08/31/2012 Voided Kaylynn Mendez WIND TURBINE TECHNICIAN 07/28/2012 Office visit Kaylynn Mendez WIND TURBINE TECHNICIAN 07/27/2012 Office visit David Joyner DO 07/20/2012 [facility] David Joyner DO 07/13/2012 [facility] Office visit Kaylynn Mendez WIND TURBINE TECHNICIAN 06/27/2012 [facility] Odell Tierney MD 06/21/2012 Office visit David Joyner DO 06/21/2012 Office visit Odell Tierney MD 06/20/2012 Office visit Brittni Yanez WIND TURBINE TECHNICIAN 06/06/2012 Office visit Odell Tierney MD 05/03/2012 Office visit Kaylynn Mendez WIND TURBINE TECHNICIAN 04/28/2012 Office visit Brittni Yanze WIND TURBINE TECHNICIAN 04/11/2012 Office visit Kaylynn Mendez WIND TURBINE TECHNICIAN 04/06/2012 [facility] John Hoskins MD 03/30/2012 Office visit Kaylynn Walker WIND TURBINE TECHNICIAN 03/15/2012 Office visit Kaylynn Mendez WIND TURBINE TECHNICIAN 03/15/2012 Office visit Odell Tierney MD 02/09/2012 Office visit Kaylynn Mendez WIND TURBINE TECHNICIAN 12/23/2011 Office visit Kyalynn Walker WIND TURBINE TECHNICIAN 11/02/2011 Office visit Kaylynn Walker WIND TURBINE TECHNICIAN 10/14/2011 Office visit Kaylynn Walker WIND TURBINE TECHNICIAN 09/27/2011 Office visit Kaylynn Mendez WIND TURBINE TECHNICIAN 08/19/2011 Hospital John Hoskins MD 08/18/2011 Hospital John Hoskins MD 08/18/2011 Office visit Kaylynn Mendez WIND TURBINE TECHNICIAN 08/02/2011 Office visit Kaylynn Mendez WIND TURBINE TECHNICIAN 07/08/2011 Office visit Kaylynn Mendez WIND TURBINE TECHNICIAN 07/05/2011 Office visit Odell Tierney MD 06/15/2011 Office visit Kaylynn Mendez WIND TURBINE TECHNICIAN 05/14/2011 Office visit Kaylynn Mendez WIND TURBINE TECHNICIAN 05/11/2011 Office visit Odell Tierney MD 04/28/2011 Office visit Kaylynn Mendez WIND TURBINE TECHNICIAN 03/02/2011 Office visit Chadd Norris DO [...]
--- OUTSIDE RECORDS SUMMARY | 2018-05-09 21:16 | XMS REPORT ---
Author Kaylynn Lyles Organization [facility] Address [address] [place], [place] [id number] Care Team Providers Care Electric Plater Name Role Phone Kaylynn Mendez PCP Unavailable [...] to exceed 30 mL in 24 hours Name Start Date Expiration Date SIG [...] 08/27/2014 use as directed for 99 days [place] 5-325 mg oral tablet 06/17/2014 06/27/2014 take [...] a day as needed for 30 days guctxelc-txxqyjecq-DV 3.5-10,000-1 mg/mL-unit/mL-% otic drops,suspension 201401/08/2015 instill 4 [...] HC BMI BSA BMI Percentile O2 Sat(%) 05/26/2015 10:18:00 AM 102 mmHg 56 mmHg [...] Reviewed 04/28/2011 12:00 AM Decadron 1 mg ND#[id number] (Jr) Reviewed 04/28/2011 12:00 AM Depo-Medrol 80 mg ND#[id number]-Ahdbaxmn Reviewed 05/11/2011 12:00 AM N BLOCK INJ OCCIPITAL Reviewed 05/11/2011 12:00 AM Kenalog Vw-[address]-20 ANNA Reviewed 06/15/2011 12:00 AM COMPLETE CBC W/AUTO DIFF WBC Returned 06/15/2011 12:00 AM COMPREHEN METABOLIC PANEL Returned 07/08/2011 12:00 AM THER/PROPH/DIAG INJ SC/IM Reviewed 07/08/2011 12:00 AM Toradol,15mg ND#[id number], Adilene Reviewed 07/08/2011 12:00 AM Phenergan 50 Mg Im Nd 0374-2110-77 ALLIE Hoskins Reviewed 08/02/2011 12:00 AM THER/PROPH/DIAG INJ SC/IM Reviewed 08/02/2011 12:00 AM Decadron 1 mg NDC#[id number] (Jr) Reviewed 08/02/2011 12:00 AM Depo-Medrol 80 mg NDC#[id number]-Joycedsp Reviewed 09/27/2011 12:00 AM THER/PROPH/DIAG INJ SC/IM Reviewed 09/27/2011 12:00 AM Depo-Medrol 80 mg NDC#[id number]-Pxrbwzni Reviewed 10/14/2011 12:00 AM X-RAY EXAM OF ABDOMEN Returned 10/14/2011 12:00 AM URINALYSIS AUTO W/O SCOPE Reviewed 12/23/2011 12:00 AM THER/PROPH/DIAG INJ SC/IM Reviewed 12/23/2011 12:00 AM Decadron 1 mg NDC#[id number] (Jr) Reviewed 12/23/2011 12:00 AM Depo-Medrol 80 mg NDC#[id number]-Bulcfghz Reviewed 02/09/2012 12:00 AM THER/PROPH/DIAG INJ SC/IM Reviewed 02/09/2012 12:00 AM Decadron 1 mg NDC#[id number] (Jr) Reviewed 02/09/2012 12:00 AM Depo-Medrol 80 mg NDC#[id number]-Nxhjusgj Reviewed 03/15/2012 12:00 AM N BLOCK INJ OCCIPITAL Reviewed 03/15/2012 12:00 AM Kenalog Sd-[address]-20 ANNA Reviewed 04/11/2012 12:00 AM COMPLETE CBC W/AUTO DIFF WBC Returned 04/11/2012 12:00 AM COMPREHEN METABOLIC PANEL Returned 04/11/2012 12:00 AM LIPID PANEL Returned 04/11/2012 12:00 AM ASSAY THYROID STIM HORMONE Returned 06/20/2012 12:00 AM THER/PROPH/DIAG INJ SC/IM Reviewed 06/20/2012 12:00 AM Decadron, Per 1 Mg ND# [address]-87 Reviewed 06/20/2012 12:00 AM Depo-Medrol, Per 80 Mg ND#5735-9200-20 Reviewed 09/06/2012 12:00 AM N BLOCK INJ OCCIPITAL Reviewed 09/06/2012 12:00 AM Kenalog Id-[address]-20 ANNA Reviewed 09/06/2012 12:00 AM X-RAY EXAM RIBS UNI 2 VIEWS Returned 09/26/2012 12:00 AM THER/PROPH/DIAG INJ SC/IM Reviewed 09/26/2012 12:00 AM Decadron, Per 1 Mg [facility]# [address]-04 Reviewed 09/26/2012 12:00 AM Depo-Medrol, Per 80 Mg ND#3871-5788-23 Reviewed 10/03/2012 12:00 AM URINALYSIS AUTO W/O SCOPE Reviewed 10/03/2012 12:00 AM THER/PROPH/DIAG INJ SC/IM Reviewed 10/03/2012 12:00 AM Toradol 60 Mg ND#5724-4829-50 Reviewed 10/03/2012 12:00 AM Phenergan, 25Mg ND#6979-7229-19 Reviewed 10/19/2012 12:00 AM N BLOCK INJ OCCIPITAL Reviewed 10/19/2012 12:00 AM Kenalog, Per 10 Mg ND#7225-7867-54 Reviewed 10/19/2012 12:00 AM Toradol 30 Mg ND#7762-6474-99 Reviewed 10/19/2012 12:00 AM THER/PROPH/DIAG INJ SC/IM Reviewed 10/31/2012 12:00 AM COMPLETE CBC W/AUTO DIFF WBC Returned 10/31/2012 12:00 AM COMPREHEN METABOLIC PANEL Returned 10/31/2012 12:00 AM LIPID PANEL Returned 11/03/2012 12:[address] THORAX W/O & W/DYE Returned 11/08/2012 12:00 AM N BLOCK INJ OCCIPITAL Reviewed 11/08/2012 12:00 AM Kenalog Rj-[address]-20 ANNA Reviewed 11/27/2012 12:00 AM COMPLETE CBC [...] 01/25/2013 12:00 AM Decadron, Per 1 Mg [facility]# [address]-93 Reviewed 01/25/2013 12:00 AM Depo-Medrol, Per 80 Mg [facility]#8785-1139-75 Reviewed 01/26/2013 12:00 AM IMMUNOTHERAPY INJECTIONS Returned [...] 05/16/2013 12:00 AM Decadron, Per 1 Mg [facility]# [address]-48 Reviewed 05/16/2013 12:00 AM Depo-Medrol, Per 80 Mg [facility]#5860-7067-45 Reviewed 05/31/2013 12:00 AM IMMUNOTHERAPY INJECTIONS Reviewed 06/08/2013 12:00 AM IMMUNOTHERAPY INJECTIONS Reviewed 06/14/2013 12:00 AM IMMUNOTHERAPY INJECTIONS Reviewed 06/28/2013 12:00 AM IMMUNOTHERAPY INJECTIONS Reviewed 07/12/2013 12:00 AM X-RAY EXAM RIBS UNI 2 VIEWS Returned 07/18/2013 12:00 AM Toradol 60 Mg [facility]#6621-1650-01 Reviewed 07/18/2013 12:00 AM THER/PROPH/DIAG INJ SC/IM Reviewed 08/23/2013 12:00 AM COMPLETE CBC W/AUTO DIFF WBC Reviewed 08/23/2013 12:00 AM COMPREHEN METABOLIC PANEL Reviewed 08/23/2013 12:00 AM LIPID PANEL Reviewed 08/31/2013 12:00 AM X-RAY EXAM OF LOWER LEG Returned 09/04/2013 12:00 AM IMMUNOTHERAPY INJECTIONS Reviewed 09/14/2013 12:00 AM THER/PROPH/DIAG INJ SC/IM Reviewed 09/14/2013 12:00 AM Decadron, Per 1 Mg [facility]# [address]-69 Reviewed 09/14/2013 12:00 AM Depo-Medrol, Per 80 Mg [facility]#9942-7604-32 Reviewed 09/20/2013 12:00 AM IMMUNOTHERAPY INJECTIONS Reviewed [...] INJ OCCIPITAL Reviewed 12/10/2009 12:00 AM Kenalog Uy-[address]-20 ANNA Reviewed 12/16/2009 12:00 AM HIV-1ANTIBODY Reviewed 12/16/2009 12:00 AM COMPLETE CBC W/AUTO DIFF WBC Reviewed 12/16/2009 12:00 AM METABOLIC PANEL TOTAL CA Reviewed 12/16/2009 12:00 AM Type and screen Reviewed 12/16/2009 12:00 AM PROTHROMBIN TIME Reviewed 12/16/2009 12:00 AM THROMBOPLASTIN TIME PARTIAL Reviewed 03/18/2010 12:00 AM DRAIN/INJ JOINT/BURSA W/O US Reviewed 03/18/2010 12:00 AM Kenalog Vp-[address]-20 ANNA Reviewed 11/21/2013 12:00 AM RADEX HAND MINIMUM 3 VIEWS Returned 06/03/2010 12:00 AM INJ TRIGGER POINT 1/2 MUSCL Reviewed 06/03/2010 12:00 AM Kenalog per 10Mg Im-[facility]#[address]-45(Niall) Reviewed 12/05/2013 12:00 AM COMPLETE CBC W/AUTO [...] Reviewed 07/23/2010 12:00 AM Kenalog per 10Mg Im-Ndc#[address]-85(Niall) Reviewed 2014 12:00 AM COMPLETE CBC W/AUTO [...] INJ OCCIPITAL Reviewed 10/01/2010 12:00 AM Kenalog Jq-[address]-20 ANNA Reviewed 07/25/2014 12:00 AM THER/PROPH/DIAG INJ [...] 0.60 mg/dLCALCIUM 10.90 mg/ dLeGFR >60 mL/min/1.73 [id number] 45.0 U/L 08/31/2013 10:54 AM GLUCOSE 255.0 [...] 0.40 mg/ dLCALCIUM 10.60 mg/dLeGFR >60 mL/min/1.73 [id number] 369.0 mg/ dLCHOLESTEROL 153.0 mg/dLHDL 26.0 mg/dLLDL [...] BILI 0.30 mg/dLCALCIUM 10.0 mg/dLeGFR >60 mL/min/1.73 [id number] YELLOW APPEARANCE CLEAR SPEC GRAV 1.010 pH 5.5 PROTEIN NEGATIVE GLUCOSE NEGATIVE KETONE NEGATIVE BILIRUBIN NEGATIVE BLOOD NEGATIVE NITRITE NEGATIVE LEUK SCREEN NEGATIVE Est Avg Glucose 134.1 mg/dLMICROALBUMIN UR <0.5 MG/DL 02/13/2015 4:38 PM RMSF, IgG, EIA Negative [facility] Spotted Fever,IgM 0.51 E. [...] 141 Influenza 04/24/2014 [employer] [facility] Fluzone [id number] Intramuscular Left Upper Arm 02/27/2014 01/15/2014 141 Influenza 02/13/2015 [facility] Fluzone [id number] Intramuscular Left Deltoid 02/13/2015 01/03/2015 140 History [...] Spasm Jul 05 2011 1:58PM Headache b 9 2011 1:38PM Heart Sound Abnormality Jul [...] of right foot May 26 2015 10:22AM Payers Insurance Name Company Name Plan Name Plan Number Policy Number Policy Group Number Start Date Medicare Part A Medicare Part A [id number] N/A [facility] RHC Comm [id number] N/A [place] [employer] [facility] [facility] RHC [id number] May [facility] Comm Plan of [id number] Wednesday, 2012 Medicare Part B Medicare Of [place] [id number] Monday, 2000 [place] [employer] [place] [employer] [id number] Tuesday, 2009 History of Encounters Visit Date Visit Type Provider 05/26/2015 Office visit Kaylynn Mendez SET BUILDER 05/20/2015 Office visit Kaylynn Mendez SET BUILDER 05/08/2015 Office visit Heena Dumont MD 05/06/2015 Office visit Kaylynn Mendez SET BUILDER 04/29/2015 Office visit Kaylynn Mendez SET BUILDER 03/27/2015 Voided Brittni Yanez SET BUILDER 03/21/2015 Office visit Heena Dumont MD 03/12/2015 Office visit Kaylynn Mendez SET BUILDER 02/26/2015 Office visit Brittni Yanez SET BUILDER 02/13/2015 Office visit Heena Dumont MD 01/15/2015 Office visit Brittni aYnez SET BUILDER 01/13/2015 Office visit Heena Dumont MD 01/08/[address] Carol Fowler MD 01/01/2015 Office visit Brittni Yanez SET BUILDER 12/13/2014 Office visit Heena Dumont MD 11/27/2014 Office visit Kaylynn Mendez SET BUILDER 11/14/2014 Office visit Heena Dumont MD 10/18/2014 Office visit Heena Dumont MD 10/17/2014 [facility] Hoskins MD 10/09/2014 Office visit eHena Dumont MD 09/25/2014 Office visit Heena Dumont MD 09/17/2014 Office visit Kaylynn Mendez SET BUILDER 09/04/2014 Office visit Heena Dumont MD 08/28/2014 Office visit Kaylynn Mendez SET BUILDER 08/23/2014 [facility] Eliseo Hoskins MD 08/01/2014 Office visit Kaylynn Mendez SET BUILDER 07/29/2014 Office visit Heena Dumont MD 07/25/2014 Nurse visit Heena Dumont MD 07/17/2014 Office visit Kaylynn Mendez SET BUILDER 07/11/2014 Office visit Heena Dumont MD 07/01/2014 Office visit Heena Dumont MD 06/25/2014 Office visit Kaylynn Mendez SET BUILDER 06/12/2014 Office visit Kayylnn Mendez SET BUILDER 06/06/2014 Office visit Kaylynn Mendez SET BUILDER 05/27/2014 Office visit Heena Dumont MD 04/20/2014 Office visit Yesica Falcon SET BUILDER 03/29/2014 Office visit Na Jones SET BUILDER 03/15/2014 Office visit Heena Dumont MD 2014 Office visit Heena Dumont MD 2014 [facility] MD 02/27/2014 Nurse visit Heena Dumont MD 02/13/2014 Office visit Lena El SET BUILDER 02/07/2014 Office visit Heena Dumont MD 02/03/2014 Office visit Na Jones SET BUILDER 01/30/2014 Office visit Kaylynn Mendez SET BUILDER 01/24/2014 Office visit Sundeep Russell SET BUILDER 01/16/2014 Office visit Kaylynn Mendez SET BUILDER 01/10/2014 Nurse visit Kaylynn Mendez SET BUILDER 01/08/2014 Office visit Kaylynn Mendez SET BUILDER 12/05/2013 Office visit Kaylynn Mendez SET BUILDER 11/21/2013 Office visit Kaylynn Mendez SET BUILDER 10/23/2013 Office visit Brittni Yanez SET BUILDER 10/17/2013 Nurse visit Heena Dumont MD 10/12/2013 Office visit Kaylynn Mendez SET BUILDER 10/02/2013 Office visit Heena Dumont MD 09/20/2013 Nurse visit Kaylynn Mendez SET BUILDER 09/20/2013 Voided Heena Dumont MD 09/14/2013 Office visit Kaylynn Walker SET BUILDER 09/05/2013 Office visit Sundeep Russell SET BUILDER 09/04/2013 Nurse visit Kaylynn Walker SET BUILDER 08/31/2013 Office visit Kaylynn Walker SET BUILDER 08/23/2013 Office visit Heena Dumont MD 08/10/2013 Office visit Kaylynn Walker SET BUILDER 07/25/2013 Office visit Kaylynn Walker SET BUILDER 07/18/2013 Office visit Kaylynn Walker SET BUILDER 07/12/2013 Office visit Kaylynn Walker SET BUILDER 06/28/2013 Nurse visit Kaylynn Mendez SET BUILDER 06/14/2013 Nurse visit Kaylynn Mendez SET BUILDER 06/08/2013 Nurse visit Kaylynn Mendez SET BUILDER 05/31/2013 Nurse visit Chadd Norris DO 05/18/2013 Office visit Terese Davidson MD 05/16/2013 Office visit Kaylynn Mendez SET BUILDER 05/09/2013 Office visit Kaylynn Mendez SET BUILDER 04/29/2013 [facility] Eliseo Hoskins MD 04/25/2013 Nurse visit Kaylynn Mendez SET BUILDER 04/17/2013 Office visit Kaylynn Mendez SET BUILDER 04/03/2013 Nurse visit Kaylynn Mendez SET BUILDER 04/03/2013 Office visit Terese Davidson MD 03/28/2013 Office visit Sundeep Russell SET BUILDER 03/21/2013 Office visit Kaylynn Mendez SET BUILDER 03/20/2013 Office visit Terese Davidson MD 03/14/2013 Nurse visit Kaylynn Mendez SET BUILDER 03/05/2013 Nurse visit Kaylynn Mendez SET BUILDER 02/19/2013 Office visit Terese Davidson MD 02/16/2013 Nurse visit Kaylynn Mendez SET BUILDER 02/09/2013 Office visit Sundeep Russell SET BUILDER 02/08/2013 Nurse visit Kaylynn Mendez SET BUILDER 02/01/2013 Nurse visit Kaylynn Walker SET BUILDER 01/26/2013 Nurse visit Sabrina Mendez COUNTERSINKER 01/25/2013 Office visit Kaylynn Mendez SET BUILDER 01/22/2013 Office visit Yoan Castaneda MD 01/18/2013 Nurse visit Kaylynn Mendez SET BUILDER 01/11/2013 Nurse visit Kaylynn Mendez SET BUILDER 01/05/2013 Nurse visit Kaylynn Mendez SET BUILDER 12/29/2012 Office visit Kaylynn Walker SET BUILDER 11/27/2012 Office visit Kaylynn Andrea SET BUILDER 11/08/2012 Office visit Odell Tierney MD 11/08/2012 Voided Odell Tierney MD 11/07/2012 Office visit Kaylynn Andrea SET BUILDER 10/31/2012 [facility] 10/31/2012 Office visit Kaylynn Walker SET BUILDER 10/19/2012 Office visit Genoveva Ayala SET BUILDER 10/10/2012 Office visit Kaylynn Walker SET BUILDER 10/03/2012 Office visit Kaylynn Walker SET BUILDER 09/26/2012 Office visit Kaylynn Walker SET BUILDER 09/06/2012 Office visit Kaylynn Walker SET BUILDER 09/06/2012 Office visit Odell Tierney MD 08/31/2012 Voided Kaylynn Mendez SET BUILDER 07/28/2012 Office visit Kaylynn Walker SET BUILDER 07/27/2012 Office visit [facility] Joyner DO 07/20/2012 [facility]2012 [facility] 07/11/2012 Office visit Kaylynn Mendez SET BUILDER 06/27/2012 [facility] Odell Tierney MD 06/21/2012 Office visit David Joyner DO 06/21/2012 Office visit Odell Tierney MD 06/20/2012 Office visit Brittni Yanez SET BUILDER 06/06/2012 Office visit Odell Tierney MD 05/03/2012 Office visit Kaylynn Mendez SET BUILDER 04/28/2012 Office visit Brittni Yanez SET BUILDER 04/11/2012 Office visit Kaylynn Mendez SET BUILDER 04/06/2012 [facility] MD 03/30/2012 Office visit Kaylynn Mendez SET BUILDER 03/15/2012 Office visit Kaylynn Mendez SET BUILDER 03/15/2012 Office visit Odell Tierney MD 02/09/2012 Office visit Kaylynn Mendez SET BUILDER 12/23/2011 Office visit Kaylynn Walker SET BUILDER 11/02/2011 Office visit Kaylynn Walker SET BUILDER 10/14/2011 Office visit Kaylynn Mendez SET BUILDER 09/27/2011 Office visit Kaylynn Mendez SET BUILDER 08/19/2011 [facility] 08/18/2011 [facility] MD 08/18/2011 Office visit Kaylynn Walker SET BUILDER 08/02/2011 Office visit Kaylynn Walker SET BUILDER 07/08/2011 Office visit Kaylynn Mendez SET BUILDER 07/05/2011 Office visit Odell Tierney MD 06/15/2011 Office visit Kaylynn Mendez SET BUILDER 05/14/2011 Office visit Kaylynn Mendez SET BUILDER 05/11/2011 Office visit Odell Tierney MD 04/28/2011 Office visit Kaylynn Andrea SET BUILDER 03/02/2011 Office visit Chadd Norris DO [...]
--- OUTSIDE RECORDS SUMMARY | 2018-05-09 21:21 | XMS REPORT ---
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 bnysspbi-hsqlvuozv-SI 3.5-10,000-1 mg/mL-unit/mL-% otic drops,suspension 201607/23/2016 instill 4 [...] AM Decadron 1 mg [facility]#[id number] (Jr) Reviewed 04/28/2011 12:00 AM Depo-Medrol 80 mg [facility]#[id number]-Rrdxxsdq Reviewed 09/02/2015 12:00 AM Toradol 60 Mg ND#3292-2406-63 Reviewed 09/02/2015 12:00 AM Phenergan, Up to 50 Mg [facility] Medicaid Reviewed 09/16/2015 12:00 AM Toradol 60 Mg ND#8647-1384-80 Reviewed 09/16/2015 12:00 AM Phenergan Up to 50 mg [facility] Medicare Reviewed 05/11/2011 12:00 AM N BLOCK INJ OCCIPITAL Reviewed 05/11/2011 12:00 AM Kengretta Qu-[address]-20 ANNA Reviewed 11/13/2015 12:00 AM ASSAY OF [...] INJ SC/IM Reviewed 07/08/2011 12:00 AM Toradol,15mg [facility]#[id number], [place] Reviewed 07/08/2011 12:00 AM Phenergan 50 Mg Im [facility] 4407-0134-45 [place] Reviewed 01/21/2016 12:00 AM ECG MONIT/REPRT UP TO 48 HRS Returned 08/02/2011 12:00 AM THER/PROPH/DIAG INJ SC/IM Reviewed 08/02/2011 12:00 AM Decadron 1 mg [facility]#[id number] (Jr) Reviewed 08/02/2011 12:00 AM Depo-Medrol 80 mg [facility]#[id number]-Jpxsnfuo Reviewed 03/05/2016 12:00 AM COMPLETE CBC W/AUTO DIFF WBC Reviewed 03/05/2016 12:00 AM STREP A ASSAY W/OPTIC Reviewed 03/05/2016 12:00 AM C-REACTIVE PROTEIN Reviewed 03/18/2016 12:00 AM [facility] MEDICARE - flu vaccine administration Reviewed [...] Reviewed 09/27/2011 12:00 AM Depo-Medrol 80 mg ND#[id number]-Wlvptmpr Reviewed 09/27/2011 12:00 AM Depo-Medrol 40 mg [facility]#[id number] Reviewed 07/06/2016 12:00 AM CHEST X-RAY 4/> [...] Reviewed 12/23/2011 12:00 AM Decadron 1 mg [facility]#[id number] (Jr) Reviewed 12/23/2011 12:00 AM Depo-Medrol 80 mg [facility]#[id number]-Inygehtp Reviewed 11/02/2016 11:45 AM URINALYSIS AUTO W/O [...] Reviewed 02/09/2012 12:00 AM Decadron 1 mg [facility]#[id number] (Jr) Reviewed 02/09/2012 12:00 AM Depo-Medrol 80 mg ND#[id number]-Iyxuwucm Reviewed 03/15/2012 12:00 AM N BLOCK INJ OCCIPITAL Reviewed 03/15/2012 12:00 AM Kenalog Ji-[address]-20 ANNA Reviewed 04/11/2012 12:00 AM COMPLETE CBC W/AUTO DIFF WBC Reviewed 04/11/2012 12:00 AM COMPREHEN METABOLIC PANEL Reviewed 04/11/2012 12:00 AM LIPID PANEL Reviewed 04/11/2012 12:00 AM ASSAY THYROID STIM HORMONE Reviewed 04/11/2012 12:00 AM DESTRUCT PREMALG LES 2-14 Reviewed 06/20/2012 12:00 AM THER/PROPH/DIAG INJ SC/IM Reviewed 06/20/2012 12:00 AM Decadron, Per 1 Mg ND# [address]-77 Reviewed 06/20/2012 12:00 AM Depo-Medrol, Per 80 Mg ND#6112-8169-79 Reviewed 09/06/2012 12:00 AM N BLOCK INJ OCCIPITAL Reviewed 09/06/2012 12:00 AM Kenalog Vj-[address]-20 ANNA Reviewed 09/06/2012 12:00 AM X-RAY EXAM RIBS UNI 2 VIEWS Reviewed 09/26/2012 12:00 AM THER/PROPH/DIAG INJ SC/IM Reviewed 09/26/2012 12:00 AM Decadron, Per 1 Mg ND# [address]-81 Reviewed 09/26/2012 12:00 AM Depo-Medrol, Per 80 Mg ND#1530-9714-62 Reviewed 10/03/2012 12:00 AM URINALYSIS AUTO W/O SCOPE Reviewed 10/03/2012 12:00 AM THER/PROPH/DIAG INJ SC/IM Reviewed 10/03/2012 12:00 AM Toradol 60 Mg ND#3161-5608-28 Reviewed 10/03/2012 12:00 AM Phenergan, 25Mg ND#5584-1579-13 Reviewed 10/19/2012 12:00 AM N BLOCK INJ OCCIPITAL Reviewed 10/19/2012 12:00 AM Kenalog, Per 10 Mg ND#8543-4187-09 Reviewed 10/19/2012 12:00 AM Toradol 30 Mg ND#6259-3819-73 Reviewed 10/19/2012 12:00 AM THER/PROPH/DIAG INJ SC/IM Reviewed 10/31/2012 12:00 AM COMPLETE CBC W/AUTO DIFF WBC Reviewed 10/31/2012 12:00 AM COMPREHEN METABOLIC PANEL Reviewed 10/31/2012 12:00 AM LIPID PANEL Reviewed 10/31/2012 12:00 AM ELECTROCARDIOGRAM COMPLETE Reviewed 11/03/2012 12:[address] THORAX W/O & W/DYE Reviewed 11/08/2012 12:00 AM N BLOCK INJ OCCIPITAL Reviewed 11/08/2012 12:00 AM Kenalog Go-[address]-20 ANNA Reviewed 11/27/2012 12:00 AM COMPLETE CBC [...] Per 1 Mg [facility]# [address]-25 Reviewed 01/25/2013 12:00 AM Depo-Medrol, Per 80 Mg [facility]#2874-1834-03 Reviewed 01/26/2013 12:00 AM IMMUNOTHERAPY ONE INJECTION [...] Per 1 Mg [facility]# [address]-23 Reviewed 05/16/2013 12:00 AM Depo-Medrol, Per 80 Mg [facility]#4029-2922-20 Reviewed 05/31/2013 12:00 AM IMMUNOTHERAPY INJECTIONS Reviewed 06/08/2013 12:00 AM IMMUNOTHERAPY INJECTIONS Reviewed 06/14/2013 12:00 AM IMMUNOTHERAPY INJECTIONS Reviewed 06/28/2013 12:00 AM IMMUNOTHERAPY INJECTIONS Reviewed 07/12/2013 12:00 AM X-RAY EXAM RIBS UNI 2 VIEWS Reviewed 07/18/2013 12:00 AM Toradol 60 Mg [facility]#3089-7461-48 Reviewed 07/18/2013 12:00 AM THER/PROPH/DIAG INJ SC/IM Reviewed 08/23/2013 12:00 AM COMPLETE CBC W/AUTO DIFF WBC Reviewed 08/23/2013 12:00 AM COMPREHEN METABOLIC PANEL Reviewed 08/23/2013 12:00 AM LIPID PANEL Reviewed 08/31/2013 12:00 AM X-RAY EXAM OF LOWER LEG Reviewed 09/04/2013 12:00 AM IMMUNOTHERAPY INJECTIONS Reviewed 09/14/2013 12:00 AM THER/PROPH/DIAG INJ SC/IM Reviewed 09/14/2013 12:00 AM Decadron, Per 1 Mg [facility]# [address]-10 Reviewed 09/14/2013 12:00 AM Depo-Medrol, Per 80 Mg [facility]#0769-4862-85 Reviewed 09/20/2013 12:00 AM IMMUNOTHERAPY INJECTIONS Reviewed [...] INJ OCCIPITAL Reviewed 12/10/2009 12:00 AM Kenalog Hh-[address]-20 ANNA Reviewed 12/16/2009 12:00 AM HIV-1ANTIBODY Reviewed 12/16/2009 12:00 AM COMPLETE CBC W/AUTO DIFF WBC Reviewed 12/16/2009 12:00 AM METABOLIC PANEL TOTAL CA Reviewed 12/16/2009 12:00 AM Type and screen Reviewed 12/16/2009 12:00 AM PROTHROMBIN TIME Reviewed 12/16/2009 12:00 AM THROMBOPLASTIN TIME PARTIAL Reviewed 03/18/2010 12:00 AM DRAIN/INJ JOINT/BURSA W/O US Reviewed 03/18/2010 12:00 AM Kenalog Iu-[address]-20 ANNA Reviewed 11/21/2013 12:00 AM RADEX HAND MINIMUM 3 VIEWS Reviewed 06/03/2010 12:00 AM INJ TRIGGER POINT 1/2 MUSCL Reviewed 06/03/2010 12:00 AM Kenalog per 10Mg -[facility]#[address]-51(Niall) Reviewed 12/05/2013 12:00 AM COMPLETE CBC W/AUTO [...] Reviewed 07/23/2010 12:00 AM Kenalog per 10Mg Im-[facility]#[address]-40(Niall) Reviewed 2014 12:00 AM COMPLETE CBC W/AUTO [...] INJ OCCIPITAL Reviewed 10/01/2010 12:00 AM Kenalog Ui-[address]-20 ANNA Reviewed 07/25/2014 12:00 AM THER/PROPH/DIAG INJ [...] 141 Influenza 04/24/2014 sanofi pasteur PMC Fluzone [id number] Intramuscular Left Upper Arm 02/27/2014 01/15/2014 141 Influenza 02/13/2015 sanofi pasteur PMC Fluzone [id number] Intramuscular Left Deltoid 02/13/2015 01/03/2015 140 Tdap 06/06/2015 [employer] SKB BOOSTRIX [id number] Intramuscular Left Deltoid 06/06/2015 07/23/2014 115 Influenza 03/18/2016 sanofi pasteur PMC Fluzone [id number] Intramuscular Left Deltoid 03/17/2016 01/03/2015 141 History [...] Number Policy Group Number Start Date Medicare [facility] Medicare [facility] [id number] N/A [facility] [id number] N/A Medicare Part A Medicare - Lab/Xray [id number] N/A Medicare Part B Medicare Of [place] [id number] Monday, February 28, 2000 [place] [facility] [place] [facility] [id number] Tuesday, November 10, 2009 Medicare Part A Medicare Part A [id number] N/A [employer] [place] [employer] [id number] May [facility] Plan of [id number] Wednesday, May 30, 2012 History of Encounters Visit Date Visit Type Provider 01/07/2017 Office visit Riccardo Cardoza MD 01/03/2017 Office visit Heena Dumont MD 12/15/2016 Office visit Kaylynn Mendez ANALYTICAL CHEMISTRY TEACHER 12/02/2016 Office visit Heena Dumont MD 11/23/2016 [facility] Eliseo Hoskins MD 11/23/2016 Office visit Kaylynn Mendez ANALYTICAL CHEMISTRY TEACHER 11/17/2016 Office visit Kaylynn Mendez ANALYTICAL CHEMISTRY TEACHER 11/05/2016 Office visit Riccardo Cardoza MD 11/02/2016 Office visit Heena Dumont MD 10/06/2016 Office visit Kaylynn Mendez ANALYTICAL CHEMISTRY TEACHER 09/22/2016 Office visit Heena Dumont MD 09/09/2016 Office visit Kaylynn Mendez ANALYTICAL CHEMISTRY TEACHER 08/27/2016 Office visit Riccardo Cardoza MD 08/26/2016 Office visit Heena Dumont MD 07/09/2016 Office visit Riccardo Cardoza MD 07/06/2016 Office visit Heena Dumont MD 06/18/2016 Office visit Kaylynn Mendez ANALYTICAL CHEMISTRY TEACHER 06/07/2016 Office visit Sundeep Russell ANALYTICAL CHEMISTRY TEACHER 06/04/2016 Office visit Heena Dumont MD 05/13/2016 Office visit Heena Dumont MD 05/03/2016 Office visit Heena Dumont MD 04/26/2016 Office visit Kaylynn Mendez ANALYTICAL CHEMISTRY TEACHER 04/14/2016 Office visit Heena Dumont MD 04/13/2016 Office visit Kaylynn Mendez ANALYTICAL CHEMISTRY TEACHER 04/02/2016 Office visit Lena El ANALYTICAL CHEMISTRY TEACHER 04/02/2016 Office visit Heena Dumont MD 03/26/2016 Office visit Yesica Falcon ANALYTICAL CHEMISTRY TEACHER 03/17/2016 Office visit Heena Dumont MD 03/05/2016 Office visit Kaylynn Mendez ANALYTICAL CHEMISTRY TEACHER 02/16/2016 Office visit Heena Dumont MD 02/14/2016 Office visit Na Jones ANALYTICAL CHEMISTRY TEACHER 01/16/2016 Office visit Heena Dumont MD 12/16/2015 Office visit Heena Dumont MD 11/24/2015 Office visit Kaylynn Mendez ANALYTICAL CHEMISTRY TEACHER 11/18/2015 Office visit Heena Dumont MD 11/03/2015 Office visit Sundeep Russell ANALYTICAL CHEMISTRY TEACHER 10/20/2015 Office visit Kaylynn Walker ANALYTICAL CHEMISTRY TEACHER 09/23/2015 Office visit Kaylynn Walker ANALYTICAL CHEMISTRY TEACHER 09/16/[address] Pepe Figueroa MD 09/02/2015 Office visit Kaylynn Walker ANALYTICAL CHEMISTRY TEACHER 09/01/2015 Office visit Kaylynn Walker ANALYTICAL CHEMISTRY TEACHER 07/30/2015 Office visit Heena Dumont MD 07/15/2015 Office visit Kaylynn Mendez ANALYTICAL CHEMISTRY TEACHER 07/04/2015 Office visit Heena Dumont MD 06/06/2015 Office visit Heena Dumont MD 06/06/2015 Office visit Kaylynn Mendez ANALYTICAL CHEMISTRY TEACHER 06/02/2015 Office visit Kaylynn Mendez ANALYTICAL CHEMISTRY TEACHER 05/26/2015 Office visit Kaylynn Mendez ANALYTICAL CHEMISTRY TEACHER 05/20/2015 Office visit Kaylynn Mendez ANALYTICAL CHEMISTRY TEACHER 05/08/2015 Office visit Heena Dumont MD 05/06/2015 Office visit Kaylynn Mendez ANALYTICAL CHEMISTRY TEACHER 04/29/2015 Office visit Kaylynn Mendez ANALYTICAL CHEMISTRY TEACHER 03/27/2015 Voided Brittni Yanez ANALYTICAL CHEMISTRY TEACHER 03/21/2015 Office visit Heena Dumont MD 03/12/2015 Office visit Kaylynn Mendez ANALYTICAL CHEMISTRY TEACHER 02/26/2015 Office visit Brittni Yanez ANALYTICAL CHEMISTRY TEACHER 02/13/2015 Office visit Heena Dumont MD 01/15/2015 Office visit Brittni Yanez ANALYTICAL CHEMISTRY TEACHER 01/13/2015 Office visit Heena Dumont MD 01/08/[address] Carol Fowler MD 01/01/2015 Office visit Brittni Yanez ANALYTICAL CHEMISTRY TEACHER 12/13/2014 Office visit Heena Dumont MD 11/27/2014 Office visit Kaylynn Mendez ANALYTICAL CHEMISTRY TEACHER 11/14/2014 Office visit Heena Dumont MD 10/18/2014 Office visit Heena Dumont MD 10/17/2014 [facility] John Hoskins MD 10/09/2014 Office visit Heena Dumont MD 09/25/2014 Office visit Heena Dumont MD 09/17/2014 Office visit Kaylynn Mendez ANALYTICAL CHEMISTRY TEACHER 09/04/2014 Office visit Heena Dumont MD 08/28/2014 Office visit Kaylynn Mendez ANALYTICAL CHEMISTRY TEACHER 08/23/2014 [facility] John Hoskins MD 08/01/2014 Office visit Kaylynn Mendez ANALYTICAL CHEMISTRY TEACHER 07/29/2014 Office visit Heena Dumont MD 07/25/2014 Nurse visit Heena Dumont MD 07/17/2014 Office visit Kaylynn Mendez ANALYTICAL CHEMISTRY TEACHER 07/11/2014 Office visit Heena Dumont MD 07/01/2014 Office visit Heena Dumont MD 06/25/2014 Office visit Kaylynn Mendez ANALYTICAL CHEMISTRY TEACHER 06/12/2014 Office visit Kaylynn Mendez ANALYTICAL CHEMISTRY TEACHER 06/06/2014 Office visit Kaylynn Mendez ANALYTICAL CHEMISTRY TEACHER 05/27/2014 Office visit Heena Dumont MD 04/20/2014 Office visit Yesica Falcon ANALYTICAL CHEMISTRY TEACHER 03/29/2014 Office visit Na Jones ANALYTICAL CHEMISTRY TEACHER 03/15/2014 Office visit Heena Dumont MD 2014 Office visit Heena Dumont MD 2014 [facility] John Hoskins MD 02/27/2014 Nurse visit Heena Dumont MD 02/13/2014 Office visit Lnea El ANALYTICAL CHEMISTRY TEACHER 02/07/2014 Office visit Heena Dumont MD 02/03/2014 Office visit Na Jones ANALYTICAL CHEMISTRY TEACHER 01/30/2014 Office visit Kaylynn Mendez ANALYTICAL CHEMISTRY TEACHER 01/24/2014 Office visit Sundeep Russell ANALYTICAL CHEMISTRY TEACHER 01/16/2014 Office visit Kaylynn Mendez ANALYTICAL CHEMISTRY TEACHER 01/10/2014 Nurse visit Kaylynn Mendez ANALYTICAL CHEMISTRY TEACHER 01/08/2014 Office visit Kaylynn Walker ANALYTICAL CHEMISTRY TEACHER 12/05/2013 Office visit Kaylynn Mendez ANALYTICAL CHEMISTRY TEACHER 11/21/2013 Office visit Kaylynn Mendez ANALYTICAL CHEMISTRY TEACHER 10/23/2013 Office visit Brittni Yanez ANALYTICAL CHEMISTRY TEACHER 10/17/2013 Nurse visit Heena Dumont MD 10/12/2013 Office visit Kaylynn Mendez ANALYTICAL CHEMISTRY TEACHER 10/02/2013 Office visit Heena Dumont MD 09/20/2013 Nurse visit Kaylynn Mendez ANALYTICAL CHEMISTRY TEACHER 09/20/2013 Voided Heena Dumont MD 09/14/2013 Office visit Kaylynn Mendez ANALYTICAL CHEMISTRY TEACHER 09/05/2013 Office visit Sundeep Russell ANALYTICAL CHEMISTRY TEACHER 09/04/2013 Nurse visit Kaylynn Mendez ANALYTICAL CHEMISTRY TEACHER 08/31/2013 Office visit Kaylynn Mendez ANALYTICAL CHEMISTRY TEACHER 08/23/2013 Office visit Heena Dumont MD 08/10/2013 Office visit Kaylynn Mendez ANALYTICAL CHEMISTRY TEACHER 07/25/2013 Office visit Kaylynn Mnedez ANALYTICAL CHEMISTRY TEACHER 07/18/2013 Office visit Kaylynn Walker ANALYTICAL CHEMISTRY TEACHER 07/12/2013 Office visit Kaylynn Walker ANALYTICAL CHEMISTRY TEACHER 06/28/2013 Nurse visit Kaylynn Walker ANALYTICAL CHEMISTRY TEACHER 06/14/2013 Nurse visit Kaylynn Walker ANALYTICAL CHEMISTRY TEACHER 06/08/2013 Nurse visit Kaylynn Walker ANALYTICAL CHEMISTRY TEACHER 05/31/2013 Nurse visit Chadd Norris DO 05/18/2013 Office visit Terese Davidson MD 05/16/2013 Office visit Kaylynn Walker ANALYTICAL CHEMISTRY TEACHER 05/09/2013 Office visit Kaylynn Walker ANALYTICAL CHEMISTRY TEACHER 04/29/2013 Hospital John Hoskins MD 04/25/2013 Nurse visit Kaylynn Walker ANALYTICAL CHEMISTRY TEACHER 04/17/2013 Office visit Kaylynn Walker ANALYTICAL CHEMISTRY TEACHER 04/03/2013 Nurse visit Kaylynn Walker ANALYTICAL CHEMISTRY TEACHER 04/03/2013 Office visit Terese Davidson MD 03/28/2013 Office visit Sundeep Russell ANALYTICAL CHEMISTRY TEACHER 03/21/2013 Office visit Kaylynn Walker ANALYTICAL CHEMISTRY TEACHER 03/20/2013 Office visit Terese Davidson MD 03/14/2013 Nurse visit Kaylynn Walker ANALYTICAL CHEMISTRY TEACHER 03/05/2013 Nurse visit Kaylynn Walker ANALYTICAL CHEMISTRY TEACHER 02/19/2013 Office visit Terese Davidson MD 02/16/2013 Nurse visit Kaylynn Walker ANALYTICAL CHEMISTRY TEACHER 02/09/2013 Office visit Sundeep Russell ANALYTICAL CHEMISTRY TEACHER 02/08/2013 Nurse visit Kaylynn Walker ANALYTICAL CHEMISTRY TEACHER 02/01/2013 Nurse visit Kaylynn Walker ANALYTICAL CHEMISTRY TEACHER 01/26/2013 Nurse visit Sabrina Mendez INCENDIARY POWDER MIXER 01/25/2013 Office visit Kaylynn Walker ANALYTICAL CHEMISTRY TEACHER 01/22/2013 Office visit Yoan Castaneda MD 01/18/2013 Nurse visit Kaylynn Walker ANALYTICAL CHEMISTRY TEACHER 01/11/2013 Nurse visit Kaylynn Walker ANALYTICAL CHEMISTRY TEACHER 01/05/2013 Nurse visit Kaylynn Walker ANALYTICAL CHEMISTRY TEACHER 12/29/2012 Office visit Kaylynn Walker ANALYTICAL CHEMISTRY TEACHER 11/27/2012 Office visit Kaylynn Mendez ANALYTICAL CHEMISTRY TEACHER 11/08/2012 Office visit Odell Tierney MD 11/08/2012 Voided Odell Tierney MD 11/07/2012 Office visit Kaylynn Walker ANALYTICAL CHEMISTRY TEACHER 10/31/2012 [facility] John Hoskins MD 10/31/2012 Office visit Kaylynn Walker ANALYTICAL CHEMISTRY TEACHER 10/19/2012 Office visit Genoveva Ayala ANALYTICAL CHEMISTRY TEACHER 10/10/2012 Office visit Kaylynn Walker ANALYTICAL CHEMISTRY TEACHER 10/03/2012 Office visit Kaylynn Walker ANALYTICAL CHEMISTRY TEACHER 09/26/2012 Office visit Kaylynn Walker ANALYTICAL CHEMISTRY TEACHER 09/06/2012 Office visit Kaylynn Walker ANALYTICAL CHEMISTRY TEACHER 09/06/2012 Office visit Odell Tierney MD 08/31/2012 Voided Kaylynn Mendez ANALYTICAL CHEMISTRY TEACHER 07/28/2012 Office visit Kaylynn Andrea ANALYTICAL CHEMISTRY TEACHER 07/27/2012 Office visit David Ar DO 07/20/2012 Hospital David Jyoner DO 07/13/2012 Hospital David Ar DO 07/11/2012 Office visit Kaylynn Mendez ANALYTICAL CHEMISTRY TEACHER 06/27/2012 [facility] Odell Tierney MD 06/21/2012 Office visit David Joyner DO 06/21/2012 Office visit Odell Tierney MD 06/20/2012 Office visit Brittni Yanez ANALYTICAL CHEMISTRY TEACHER 06/06/2012 Office visit Odell Tierney MD 05/03/2012 Office visit Kaylynn Mendez ANALYTICAL CHEMISTRY TEACHER 04/28/2012 Office visit Brittni Yanez ANALYTICAL CHEMISTRY TEACHER 04/11/2012 Office visit Kaylynn Mendez ANALYTICAL CHEMISTRY TEACHER 04/06/2012 Hospital John Hoskins MD 03/30/2012 Office visit Kaylynn Mendez ANALYTICAL CHEMISTRY TEACHER 03/15/2012 Office visit Kaylynn Mendez ANALYTICAL CHEMISTRY TEACHER 03/15/2012 Office visit Odell Tierney MD 02/09/2012 Office visit Kaylynn Mendez ANALYTICAL CHEMISTRY TEACHER 12/23/2011 Office visit Kaylynn Mendez ANALYTICAL CHEMISTRY TEACHER 11/02/2011 Office visit Kaylynn Mendez ANALYTICAL CHEMISTRY TEACHER 10/14/2011 Office visit Kaylynn Mendez ANALYTICAL CHEMISTRY TEACHER 09/27/2011 Office visit Kaylynn Mendez ANALYTICAL CHEMISTRY TEACHER 08/19/2011 Hospital John Hoskins MD 08/18/2011 Hospital John Hoskins MD 08/18/2011 Office visit Kaylynn Mendez ANALYTICAL CHEMISTRY TEACHER 08/02/2011 Office visit Kaylynn Mendez ANALYTICAL CHEMISTRY TEACHER 07/08/2011 Office visit Kaylynn Mendez ANALYTICAL CHEMISTRY TEACHER 07/05/2011 Office visit Odell Tierney MD 06/15/2011 Office visit Kaylynn Mendez ANALYTICAL CHEMISTRY TEACHER 05/14/2011 Office visit Kaylynn Mendez ANALYTICAL CHEMISTRY TEACHER 05/11/2011 Office visit Odell Tierney MD 04/28/2011 Office visit Kaylynn Mendez ANALYTICAL CHEMISTRY TEACHER 03/02/2011 Office visit Chadd Norris DO 02/17/2011 [...]
--- OUTSIDE RECORDS SUMMARY | 2018-05-09 21:25 | XMS REPORT ---
Author Author Heena Dumont Organization [facility] Address [address] [place], [place] [id number] Care Team Providers Care Acquis[employer] Assistant Name Role Phone Heena Dumont PCP Allergies [...] wall Nasonex 50 mcg/actuation nasal spray,non-aerosol 07/15/2015 spray [...] EVERY DAY hydrocodone-acetaminophen 10-325 mg oral tablet 12/02/2015 01/01/2016 take 1 tablet by oral route every 8 hours for 30 days Anoro Ellipta 62.5-25 mcg/actuation inhalation blister with device 12/02/2015 INHALE 1 PUFF BY INHALATION ROUTE ONCE DAILY AT THE SAME TIME EACH DAY omeprazole 20 mg oral capsule,delayed release(DR/EC) 12/16/2015 04/14/2016 take 1 capsule (20 mg) by oral route once daily before a meal for 30 days Name Start Date Expiration [...] 08/27/2014 use as directed for 99 days [place] 5-325 mg oral tablet 06/17/2014 06/27/2014 take [...] a day as needed for 30 days eyrnjdxi-eaukyzttv-TS 3.5-10,000-1 mg/mL-unit/mL-% otic drops,suspension 201401/08/2015 instill 4 [...] for 30 days per kaylynn crouch lidocaine 5 % topical adhesive patch,medicated 03/15/2014 [...] HC BMI BSA BMI Percentile O2 Sat(%) 12/16/2015 11:41:00 AM 130 mmHg 80 mmHg [...] Reviewed 04/28/2011 12:00 AM Decadron 1 mg [facility]#[id number] (Jr) Reviewed 04/28/2011 12:00 AM Depo-Medrol 80 mg [facility]#[id number]-Mjauwyyr Reviewed 09/02/2015 12:00 AM Toradol 60 Mg [place]#7102-0361-38 Reviewed 09/02/2015 12:00 AM Phenergan, Up to 50 Mg [facility] Medicaid Reviewed 09/16/2015 12:00 AM Toradol 60 Mg [facility]#9693-6521-97 Reviewed 09/16/2015 12:00 AM Phenergan Up to 50 mg [facility] Medicare Reviewed 05/11/2011 12:00 AM N BLOCK INJ OCCIPITAL Reviewed 05/11/2011 12:00 AM Kengretta Yv-[address]-20 ANNA Reviewed 11/13/2015 12:00 AM ASSAY OF [...] INJ SC/IM Reviewed 07/08/2011 12:00 AM Toradol,15mg [facility]#[id number], [place] Reviewed 07/08/2011 12:00 AM Phenergan 50 Mg Im [facility] [id number] ALLIE Hoskins Reviewed 08/02/2011 12:00 AM THER/PROPH/DIAG INJ SC/IM Reviewed 08/02/2011 12:00 AM Decadron 1 mg [facility]#[id number] (Jr) Reviewed 08/02/2011 12:00 AM Depo-Medrol 80 mg [facility]#[id number]-Hkbqzzdz Reviewed 09/27/2011 12:00 AM THER/PROPH/DIAG INJ SC/IM Reviewed 09/27/2011 12:00 AM Depo-Medrol 80 mg [facility]#[id number]-Xjoflcla Reviewed 10/14/2011 12:00 AM X-RAY EXAM OF ABDOMEN Returned 10/14/2011 12:00 AM URINALYSIS AUTO W/O SCOPE Reviewed 12/23/2011 12:00 AM THER/PROPH/DIAG INJ SC/IM Reviewed 12/23/2011 12:00 AM Decadron 1 mg [facility]#[id number] (Jr) Reviewed 12/23/2011 12:00 AM Depo-Medrol 80 mg [facility]#[id number]-Fzsvfafj Reviewed 02/09/2012 12:00 AM THER/PROPH/DIAG INJ SC/IM Reviewed 02/09/2012 12:00 AM Decadron 1 mg [facility]#[id number] (Jr) Reviewed 02/09/2012 12:00 AM Depo-Medrol 80 mg [facility]#[id number]-Sgcefavu Reviewed 03/15/2012 12:00 AM N BLOCK INJ OCCIPITAL Reviewed 03/15/2012 12:00 AM Kenalog Ty-[address]-20 ANNA Reviewed 04/11/2012 12:00 AM COMPLETE CBC W/AUTO DIFF WBC Returned 04/11/2012 12:00 AM COMPREHEN METABOLIC PANEL Returned 04/11/2012 12:00 AM LIPID PANEL Returned 04/11/2012 12:00 AM ASSAY THYROID STIM HORMONE Returned 06/20/2012 12:00 AM THER/PROPH/DIAG INJ SC/IM Reviewed 06/20/2012 12:00 AM Decadron, Per 1 Mg [facility]# [address]-92 Reviewed 06/20/2012 12:00 AM Depo-Medrol, Per 80 Mg [facility]#8907-4627-73 Reviewed 09/06/2012 12:00 AM N BLOCK INJ OCCIPITAL Reviewed 09/06/2012 12:00 AM Kenalog Xh-[address]-20 ANNA Reviewed 09/06/2012 12:00 AM X-RAY EXAM RIBS UNI 2 VIEWS Returned 09/26/2012 12:00 AM THER/PROPH/DIAG INJ SC/IM Reviewed 09/26/2012 12:00 AM Decadron, Per 1 Mg [facility]# [address]-38 Reviewed 09/26/2012 12:00 AM Depo-Medrol, Per 80 Mg [facility]#6088-6011-80 Reviewed 10/03/2012 12:00 AM URINALYSIS AUTO W/O SCOPE Reviewed 10/03/2012 12:00 AM THER/PROPH/DIAG INJ SC/IM Reviewed 10/03/2012 12:00 AM Toradol 60 Mg [facility]#5756-6458-96 Reviewed 10/03/2012 12:00 AM Phenergan, 25Mg [facility]#8388-0546-06 Reviewed 10/19/2012 12:00 AM N BLOCK INJ OCCIPITAL Reviewed 10/19/2012 12:00 AM Kenalog, Per 10 Mg [facility]#4008-5493-52 Reviewed 10/19/2012 12:00 AM Toradol 30 Mg [facility]#3084-7055-76 Reviewed 10/19/2012 12:00 AM THER/PROPH/DIAG INJ SC/IM Reviewed 10/31/2012 12:00 AM COMPLETE CBC W/AUTO DIFF WBC Returned 10/31/2012 12:00 AM COMPREHEN METABOLIC PANEL Returned 10/31/2012 12:00 AM LIPID PANEL Returned 11/03/2012 12:[address] THORAX W/O & W/DYE Returned 11/08/2012 12:00 AM N BLOCK INJ OCCIPITAL Reviewed 11/08/2012 12:00 AM Kenalog Ui-[address]-20 ANNA Reviewed 11/27/2012 12:00 AM COMPLETE CBC [...] Decadron, Per 1 Mg [facility]# [address]-37 Reviewed 01/25/2013 12:00 AM Depo-Medrol, Per 80 Mg [facility]#0529-8781-28 Reviewed 01/26/2013 12:00 AM IMMUNOTHERAPY INJECTIONS Returned [...] Decadron, Per 1 Mg [facility]# [address]-33 Reviewed 05/16/2013 12:00 AM Depo-Medrol, Per 80 Mg [facility]#5525-5028-05 Reviewed 05/31/2013 12:00 AM IMMUNOTHERAPY INJECTIONS Reviewed 06/08/2013 12:00 AM IMMUNOTHERAPY INJECTIONS Reviewed 06/14/2013 12:00 AM IMMUNOTHERAPY INJECTIONS Reviewed 06/28/2013 12:00 AM IMMUNOTHERAPY INJECTIONS Reviewed 07/12/2013 12:00 AM X-RAY EXAM RIBS UNI 2 VIEWS Returned 07/18/2013 12:00 AM Toradol 60 Mg [facility]#5300-9209-73 Reviewed 07/18/2013 12:00 AM THER/PROPH/DIAG INJ SC/IM Reviewed 08/23/2013 12:00 AM COMPLETE CBC W/AUTO DIFF WBC Reviewed 08/23/2013 12:00 AM COMPREHEN METABOLIC PANEL Reviewed 08/23/2013 12:00 AM LIPID PANEL Reviewed 08/31/2013 12:00 AM X-RAY EXAM OF LOWER LEG Returned 09/04/2013 12:00 AM IMMUNOTHERAPY INJECTIONS Reviewed 09/14/2013 12:00 AM THER/PROPH/DIAG INJ SC/IM Reviewed 09/14/2013 12:00 AM Decadron, Per 1 Mg [facility]# [address]-00 Reviewed 09/14/2013 12:00 AM Depo-Medrol, Per 80 Mg [facility]#2628-1168-77 Reviewed 09/20/2013 12:00 AM IMMUNOTHERAPY INJECTIONS Reviewed [...] INJ OCCIPITAL Reviewed 12/10/2009 12:00 AM Kenalog Tj-[address]-20 ANNA Reviewed 12/16/2009 12:00 AM HIV-1ANTIBODY Reviewed 12/16/2009 12:00 AM COMPLETE CBC W/AUTO DIFF WBC Reviewed 12/16/2009 12:00 AM METABOLIC PANEL TOTAL CA Reviewed 12/16/2009 12:00 AM Type and screen Reviewed 12/16/2009 12:00 AM PROTHROMBIN TIME Reviewed 12/16/2009 12:00 AM THROMBOPLASTIN TIME PARTIAL Reviewed 03/18/2010 12:00 AM DRAIN/INJ JOINT/BURSA W/O US Reviewed 03/18/2010 12:00 AM Kenalog Fw-[address]-20 ANNA Reviewed 11/21/2013 12:00 AM RADEX HAND MINIMUM 3 VIEWS Returned 06/03/2010 12:00 AM INJ TRIGGER POINT 1/2 MUSCL Reviewed 06/03/2010 12:00 AM Kenalog per 10Mg Im-[facility]#[address]-51(Niall) Reviewed 12/05/2013 12:00 AM COMPLETE CBC W/AUTO [...] Reviewed 07/23/2010 12:00 AM Kenalog per 10Mg -[facility]#[address]-81(Niall) Reviewed 2014 12:00 AM COMPLETE CBC W/AUTO [...] INJ OCCIPITAL Reviewed 10/01/2010 12:00 AM Kengretta Bv-[address]-20 ANNA Reviewed 07/25/2014 12:00 AM THER/PROPH/DIAG INJ [...] 0.60 mg/dLCALCIUM 10.90 mg/ dLeGFR >60 mL/min/1.73 [id number] 45.0 U/L 08/31/2013 10:54 AM GLUCOSE 255.0 mg/dLSODIUM 133.0 mmol/LPOTASSIUM 4.60 mmol/ LCHLORIDE 100.0 mmol/LCO2 20.0 mmol/LBUN 12.0 mg/dLCREATININE 0.80 mg/dLSGOT/ AST 52.0 IU/LSGPT/ALT 87.0 IU/LALK PHOS 118.0 IU/LTOTAL PROTEIN 7.20 g/ dLALBUMIN 4.30 g/dLTOTAL BILI 0.30 mg/dLCALCIUM 9.30 mg/dLeGFR 60 WBC 11.3 RBC 3.96 HGB 12.40 g/dLHCT 37.80 %MCV 96.0 [facility] 31.30 pgHC 32.80 g/dLRDW CV 12.80 %MPV 12.50 fLPLT [...] 0.40 mg/ dLCALCIUM 10.60 mg/dLeGFR >60 mL/min/1.73 [id number] 369.0 mg/ dLCHOLESTEROL 153.0 mg/dLHDL 26.0 mg/dLLDL [...] BILI 0.30 mg/dLCALCIUM 10.0 mg/dLeGFR >60 mL/min/1.73 [id number] YELLOW APPEARANCE CLEAR SPEC GRAV 1.010 pH [...] 141 Influenza 04/24/2014 sanofi pasteur PMC Fluzone [id number] Intramuscular Left Upper Arm 02/27/2014 01/15/2014 141 Influenza 02/13/2015 sanofi pasteur PMC Fluzone [id number] Intramuscular Left Deltoid 02/13/2015 01/03/2015 140 Tdap 06/06/2015 [employer]Sm[employer] SKB BOOSTRIX [id number] Intramuscular Left Deltoid 06/06/2015 [...] blood per rectum) Dec 16 2015 11:45AM Payers Insurance Name Company Name Plan Name Plan Number Policy Number Policy Group Number Start Date Medicare Part A Medicare RHC [id number] N/A [facility] - RHC - Community Plan of [facility] RHC Comm [id number] N/A Medicare Part A Medicare - Lab/Xray [id number] N/A Medicare Part B Medicare Of [place] [id number] Monday, February 28, 2000 [place] [employer] [place] [id number] Tuesday, November 10, 2009 Medicare Part A Medicare Part A [id number] N/A [place] [employer] [place] [employer] - RHC [id number] May [facility] Plan [facility] Comm Plan of [id number] Wednesday, May 30, 2012 History of Encounters Visit Date Visit Type Provider 12/16/2015 Office visit Heena Dumont MD 11/24/2015 Office visit Kaylynn Mendez ASSISTANT PLANT CONTROLLER 11/18/2015 Office visit Heena Dumont MD 11/03/2015 Office visit Sundeep Russell ASSISTANT PLANT CONTROLLER 10/20/2015 Office visit Kaylynn Mendez ASSISTANT PLANT CONTROLLER 09/23/2015 Office visit Kaylynn Mendez ASSISTANT PLANT CONTROLLER 09/16/[address] Pepe Figueroa MD 09/02/2015 Office visit Kaylynn Mendez ASSISTANT PLANT CONTROLLER 09/01/2015 Office visit Kaylynn Mendez ASSISTANT PLANT CONTROLLER 07/30/2015 Office visit Heena Dumont MD 07/15/2015 Office visit Kaylynn Mendez ASSISTANT PLANT CONTROLLER 07/04/2015 Office visit Heena Dumont MD 06/06/2015 Office visit Heena Dumont MD 06/06/2015 Office visit Kaylynn Mendez ASSISTANT PLANT CONTROLLER 06/02/2015 Office visit Kaylynn Mendez ASSISTANT PLANT CONTROLLER 05/26/2015 Office visit Kaylynn Mendez ASSISTANT PLANT CONTROLLER 05/20/2015 Office visit Kaylynn Mendez ASSISTANT PLANT CONTROLLER 05/08/2015 Office visit Heena Dumont MD 05/06/2015 Office visit Kaylynn Mendez ASSISTANT PLANT CONTROLLER 04/29/2015 Office visit Kaylynn Mendez ASSISTANT PLANT CONTROLLER 03/27/2015 Voided Brittni Yanez ASSISTANT PLANT CONTROLLER 03/21/2015 Office visit Heena Dumont MD 03/12/2015 Office visit Kaylynn Mendez ASSISTANT PLANT CONTROLLER 02/26/2015 Office visit Brittni Yanez ASSISTANT PLANT CONTROLLER 02/13/2015 Office visit Heena Dumont MD 01/15/2015 Office visit Brittni Yanez ASSISTANT PLANT CONTROLLER 01/13/2015 Office visit Heena Dumont MD 01/08/[address] Carol Fowler MD 01/01/2015 Office visit Brittni Yanez ASSISTANT PLANT CONTROLLER 12/13/2014 Office visit Heena Dumont MD 11/27/2014 Office visit Kaylynn Mendez ASSISTANT PLANT CONTROLLER 11/14/2014 Office visit Heena Dumont MD 10/18/2014 Office visit Heena Dumont MD 10/17/2014 [facility] MD 10/09/2014 Office visit Heena Dumont MD 09/25/2014 Office visit Heena Dumont MD 09/17/2014 Office visit Kaylynn Mendez ASSISTANT PLANT CONTROLLER 09/04/2014 Office visit Heena Dumont MD 08/28/2014 Office visit Kaylynn Mendez ASSISTANT PLANT CONTROLLER 08/23/2014 [facility] Hos[facility] MD 08/01/2014 Office visit Kaylynn Mendez ASSISTANT PLANT CONTROLLER 07/29/2014 Office visit Heena Dumont MD 07/25/2014 Nurse visit Heena Dumont MD 07/17/2014 Office visit Kaylynn Mendez ASSISTANT PLANT CONTROLLER 07/11/2014 Office visit Heena Dumont MD 07/01/2014 Office visit Heena Dumont MD 06/25/2014 Office visit Kaylynn Mendez ASSISTANT PLANT CONTROLLER 06/12/2014 Office visit Kaylynn Mendez ASSISTANT PLANT CONTROLLER 06/06/2014 Office visit Kaylynn Mendez ASSISTANT PLANT CONTROLLER 05/27/2014 Office visit Heena Dumont MD 04/20/2014 Office visit Yesica Falcon ASSISTANT PLANT CONTROLLER 03/29/2014 Office visit Na Jones ASSISTANT PLANT CONTROLLER 03/15/2014 Office visit Heena Dumont MD 2014 Office visit Heena Dumont MD 2014 [facility] MD 02/27/2014 Nurse visit Heena Dumont MD 02/13/2014 Office visit Lena El ASSISTANT PLANT CONTROLLER 02/07/2014 Office visit Heena Dumont MD 02/03/2014 Office visit Na Jones ASSISTANT PLANT CONTROLLER 01/30/2014 Office visit Kaylynn Walker ASSISTANT PLANT CONTROLLER 01/24/2014 Office visit Sundeep Russell ASSISTANT PLANT CONTROLLER 01/16/2014 Office visit Kaylynn Walker ASSISTANT PLANT CONTROLLER 01/10/2014 Nurse visit Kaylynn Walker ASSISTANT PLANT CONTROLLER 01/08/2014 Office visit Kaylynn Walker ASSISTANT PLANT CONTROLLER 12/05/2013 Office visit Kaylynn Walker ASSISTANT PLANT CONTROLLER 11/21/2013 Office visit Kaylynn Walker ASSISTANT PLANT CONTROLLER 10/23/2013 Office visit Brittni Yanez ASSISTANT PLANT CONTROLLER 10/17/2013 Nurse visit Heena Dumont MD 10/12/2013 Office visit Kaylynn Andrea ASSISTANT PLANT CONTROLLER 10/02/2013 Office visit Heena Dumont MD 09/20/2013 Nurse visit Kaylynn Mendez ASSISTANT PLANT CONTROLLER 09/20/2013 Voided Heena Dumont MD 09/14/2013 Office visit Kaylynn Walker ASSISTANT PLANT CONTROLLER 09/05/2013 Office visit Sundeep Russell ASSISTANT PLANT CONTROLLER 09/04/2013 Nurse visit Kaylynn Walker ASSISTANT PLANT CONTROLLER 08/31/2013 Office visit Kaylynn Walker ASSISTANT PLANT CONTROLLER 08/23/2013 Office visit Heena Dumont MD 08/10/2013 Office visit Kaylynn Walker ASSISTANT PLANT CONTROLLER 07/25/2013 Office visit Kaylynn Walker ASSISTANT PLANT CONTROLLER 07/18/2013 Office visit Kaylynn Walker ASSISTANT PLANT CONTROLLER 07/12/2013 Office visit Kaylynn Walker ASSISTANT PLANT CONTROLLER 06/28/2013 Nurse visit Kaylynn Walker ASSISTANT PLANT CONTROLLER 06/14/2013 Nurse visit Kaylynn Walker ASSISTANT PLANT CONTROLLER 06/08/2013 Nurse visit Kaylynn Walker ASSISTANT PLANT CONTROLLER 05/31/2013 Nurse visit Chadd Norris DO 05/18/2013 Office visit Terese Davidson MD 05/16/2013 Office visit Kaylynn Mendez ASSISTANT PLANT CONTROLLER 05/09/2013 Office visit Kaylynn Mendez ASSISTANT PLANT CONTROLLER 04/29/2013 [facility] John Hoskins MD 04/25/2013 Nurse visit Kaylynn Walker ASSISTANT PLANT CONTROLLER 04/17/2013 Office visit Kaylynn Walker ASSISTANT PLANT CONTROLLER 04/03/2013 Nurse visit Kaylynn Walker ASSISTANT PLANT CONTROLLER 04/03/2013 Office visit Terese Davidson MD 03/28/2013 Office visit Sundeep Russell ASSISTANT PLANT CONTROLLER 03/21/2013 Office visit Kaylynn Mendez ASSISTANT PLANT CONTROLLER 03/20/2013 Office visit Terese Davidson MD 03/14/2013 Nurse visit Kaylynn Mendez ASSISTANT PLANT CONTROLLER 03/05/2013 Nurse visit Kaylynn Mendez ASSISTANT PLANT CONTROLLER 02/19/2013 Office visit Terese Davidson MD 02/16/2013 Nurse visit Kaylynn Mendez ASSISTANT PLANT CONTROLLER 02/09/2013 Office visit Sundeep Russell ASSISTANT PLANT CONTROLLER 02/08/2013 Nurse visit Kaylynn Mendez ASSISTANT PLANT CONTROLLER 02/01/2013 Nurse visit Kaylynn Walker ASSISTANT PLANT CONTROLLER 01/26/2013 Nurse visit Sabrina Mendez TELEGRAPHIC TYPEWRITER REPAIRER 01/25/2013 Office visit Kaylynn Mendez ASSISTANT PLANT CONTROLLER 01/22/2013 Office visit Yoan Castaneda MD 01/18/2013 Nurse visit Kaylynn Walker ASSISTANT PLANT CONTROLLER 01/11/2013 Nurse visit Kaylynn Walker ASSISTANT PLANT CONTROLLER 01/05/2013 Nurse visit Kaylynn Walker ASSISTANT PLANT CONTROLLER 12/29/2012 Office visit Kaylynn Walker ASSISTANT PLANT CONTROLLER 11/27/2012 Office visit Kaylynn Walker ASSISTANT PLANT CONTROLLER 11/08/2012 Office visit Odell Tierney MD 11/08/2012 Voided Odell Tierney MD 11/07/2012 Office visit Kaylynn Mendez ASSISTANT PLANT CONTROLLER 10/31/2012 [facility] John Hoskins MD 10/31/2012 Office visit Kaylynn Mendez ASSISTANT PLANT CONTROLLER 10/19/2012 Office visit Genoveva Ayala ASSISTANT PLANT CONTROLLER 10/10/2012 Office visit Kaylynn Mendez ASSISTANT PLANT CONTROLLER 10/03/2012 Office visit Kaylynn Mendez ASSISTANT PLANT CONTROLLER 09/26/2012 Office visit Kaylynn Mendez ASSISTANT PLANT CONTROLLER 09/06/2012 Office visit Kaylynn Mendez ASSISTANT PLANT CONTROLLER 09/06/2012 Office visit Odell Tierney MD 08/31/2012 Voided Kaylynn Mendez ASSISTANT PLANT CONTROLLER 07/28/2012 Office visit Kaylynn Mendez ASSISTANT PLANT CONTROLLER 07/27/2012 Office visit David Joyner DO 07/20/2012 [facility] DO 07/13/2012 [facility] DO 07/11/2012 Office visit Kaylynn Mendez ASSISTANT PLANT CONTROLLER 06/27/2012 [facility] Odell Tierney MD 06/21/2012 Office visit David Joyner DO 06/21/2012 Office visit Odell Tierney MD 06/20/2012 Office visit Brittni Yanez ASSISTANT PLANT CONTROLLER 06/06/2012 Office visit Odell Tierney MD 05/03/2012 Office visit Kaylynn Mendez ASSISTANT PLANT CONTROLLER 04/28/2012 Office visit Brittni Yanez ASSISTANT PLANT CONTROLLER 04/11/2012 Office visit Kaylynn Mendez ASSISTANT PLANT CONTROLLER 04/06/2012 [facility] John Hoskins MD 03/30/2012 Office visit Kaylynn Mendez ASSISTANT PLANT CONTROLLER 03/15/2012 Office visit Kaylynn Mendez ASSISTANT PLANT CONTROLLER 03/15/2012 Office visit Odell Tierney MD 02/09/2012 Office visit Kaylynn Mendez ASSISTANT PLANT CONTROLLER 12/23/2011 Office visit Kaylynn Mendez ASSISTANT PLANT CONTROLLER 11/02/2011 Office visit Kaylynn Walker ASSISTANT PLANT CONTROLLER 10/14/2011 Office visit Kaylynn Mendez ASSISTANT PLANT CONTROLLER 09/27/2011 Office visit Kaylynn Mendez ASSISTANT PLANT CONTROLLER 08/19/2011 [facility] MD 08/18/2011 [facility] MD 08/18/2011 Office visit Kaylynn Mendez ASSISTANT PLANT CONTROLLER 08/02/2011 Office visit Kaylynn Mendez ASSISTANT PLANT CONTROLLER 07/08/2011 Office visit Kaylynn Mendez ASSISTANT PLANT CONTROLLER 07/05/2011 Office visit Odell Tierney MD 06/15/2011 Office visit Kaylynn Mendez ASSISTANT PLANT CONTROLLER 05/14/2011 Office visit Kaylynn Mendez ASSISTANT PLANT CONTROLLER 05/11/2011 Office visit Odell Tierney MD 04/28/2011 Office visit Kaylynn Andrea ASSISTANT PLANT CONTROLLER 03/02/2011 Office visit Chadd Norris DO 02/17/2011 [...]
--- OUTSIDE RECORDS SUMMARY | 2018-05-09 21:30 | XMS REPORT ---
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 fduikqmn-xpluchnei-NQ 3.5-10,000-1 mg/mL-unit/mL-% otic drops,suspension 201607/23/2016 instill 4 [...] oral route [address] Frogge Bactrim DS Oral 160-800 mg Oral Tablet [...] Reviewed 04/28/2011 12:00 AM Decadron 1 mg NDC#[id number] (Jr) Reviewed 04/28/2011 12:00 AM Depo-Medrol 80 mg NDC#[id number]-Zosblzay Reviewed 09/02/2015 12:00 AM Toradol 60 Mg NDC#9255-2009-02 Reviewed 09/02/2015 12:00 AM Phenergan, Up to 50 Mg RHC Medicaid Reviewed 09/16/2015 12:00 AM Toradol 60 Mg NDC#6962-0977-31 Reviewed 09/16/2015 12:00 AM Phenergan Up to 50 mg RHC Medicare Reviewed 05/11/2011 12:00 AM N BLOCK INJ OCCIPITAL Reviewed 05/11/2011 12:00 AM Kenalog Zk-[address]-20 ANNA Reviewed 11/13/2015 12:00 AM ASSAY OF [...] 07/08/2011 12:00 AM Toradol,15mg [facility]#[id number], [place] Reviewed 07/08/2011 12:00 AM Phenergan 50 Mg Im [facility] 8608-5637-33 FP [place] Reviewed 01/21/2016 12:00 AM ECG MONIT/REPRT UP TO 48 HRS Returned 08/02/2011 12:00 AM THER/PROPH/DIAG INJ SC/IM Reviewed 08/02/2011 12:00 AM Decadron 1 mg [facility]#[id number] (Jr) Reviewed 08/02/2011 12:00 AM Depo-Medrol 80 mg [facility]#[id number]-Tmzopgde Reviewed 03/05/2016 12:00 AM COMPLETE CBC W/AUTO DIFF WBC Reviewed 03/05/2016 12:00 AM STREP A ASSAY W/OPTIC Reviewed 03/05/2016 12:00 AM C-REACTIVE PROTEIN Reviewed 03/18/2016 12:00 AM [facility] - [...] AM Depo-Medrol 80 mg [facility]#[id number]-Muhdnjyh Reviewed 09/27/2011 12:00 AM Depo-Medrol 40 mg NDC#9019989864 Reviewed 07/06/2016 12:00 AM CHEST X-RAY 4/> [...] Reviewed 12/23/2011 12:00 AM Decadron 1 mg NDC#07607967244 (Jr) Reviewed 12/23/2011 12:00 AM Depo-Medrol 80 mg NDC#[id number]-Ajjrtoiv Reviewed 02/09/2012 12:00 AM THER/PROPH/DIAG INJ SC/IM Reviewed 02/09/2012 12:00 AM Decadron 1 mg NDC#34723343979 (Jr) Reviewed 02/09/2012 12:00 AM Depo-Medrol 80 mg NDC#[id number]-Hxwgxvdg Reviewed 03/15/2012 12:00 AM N BLOCK INJ OCCIPITAL Reviewed 03/15/2012 12:00 AM Kenalog Ja-[address]-20 ANNA Reviewed 04/11/2012 12:00 AM COMPLETE CBC W/AUTO DIFF WBC Reviewed 04/11/2012 12:00 AM COMPREHEN METABOLIC PANEL Reviewed 04/11/2012 12:00 AM LIPID PANEL Reviewed 04/11/2012 12:00 AM ASSAY THYROID STIM HORMONE Reviewed 04/11/2012 12:00 AM DESTRUCT PREMALG LES 2-14 Reviewed 06/20/2012 12:00 AM THER/PROPH/DIAG INJ SC/IM Reviewed 06/20/2012 12:00 AM Decadron, Per 1 Mg ND# [address]-52 Reviewed 06/20/2012 12:00 AM Depo-Medrol, Per 80 Mg NDC#1113-6405-74 Reviewed 09/06/2012 12:00 AM N BLOCK INJ OCCIPITAL Reviewed 09/06/2012 12:00 AM Kenalog To-[address]-20 ANNA Reviewed 09/06/2012 12:00 AM X-RAY EXAM RIBS UNI 2 VIEWS Reviewed 09/26/2012 12:00 AM THER/PROPH/DIAG INJ SC/IM Reviewed 09/26/2012 12:00 AM Decadron, Per 1 Mg ND# [address]-17 Reviewed 09/26/2012 12:00 AM Depo-Medrol, Per 80 Mg NDC#8608-0754-31 Reviewed 10/03/2012 12:00 AM URINALYSIS AUTO W/O SCOPE Reviewed 10/03/2012 12:00 AM THER/PROPH/DIAG INJ SC/IM Reviewed 10/03/2012 12:00 AM Toradol 60 Mg ND#1014-2883-47 Reviewed 10/03/2012 12:00 AM Phenergan, 25Mg ND#8846-1872-98 Reviewed 10/19/2012 12:00 AM N BLOCK INJ OCCIPITAL Reviewed 10/19/2012 12:00 AM Kenalog, Per 10 Mg ND#1011-2595-14 Reviewed 10/19/2012 12:00 AM Toradol 30 Mg ND#0145-9951-12 Reviewed 10/19/2012 12:00 AM THER/PROPH/DIAG INJ SC/IM Reviewed 10/31/2012 12:00 AM COMPLETE CBC W/AUTO DIFF WBC Reviewed 10/31/2012 12:00 AM COMPREHEN METABOLIC PANEL Reviewed 10/31/2012 12:00 AM LIPID PANEL Reviewed 10/31/2012 12:00 AM ELECTROCARDIOGRAM COMPLETE Reviewed 11/03/2012 12:[address] THORAX W/O & W/DYE Reviewed 11/08/2012 12:00 AM N BLOCK INJ OCCIPITAL Reviewed 11/08/2012 12:00 AM Kenalog Ji-[address]-20 ANNA Reviewed 11/27/2012 12:00 AM COMPLETE CBC [...] Mg [facility]# [address]-01 Reviewed 01/25/2013 12:00 AM Depo-Medrol, Per 80 Mg [facility]#9033-3447-68 Reviewed 01/26/2013 12:00 AM IMMUNOTHERAPY ONE INJECTION [...] Mg [facility]# [address]-90 Reviewed 05/16/2013 12:00 AM Depo-Medrol, Per 80 Mg [facility]#8885-0103-06 Reviewed 05/31/2013 12:00 AM IMMUNOTHERAPY INJECTIONS Reviewed 06/08/2013 12:00 AM IMMUNOTHERAPY INJECTIONS Reviewed 06/14/2013 12:00 AM IMMUNOTHERAPY INJECTIONS Reviewed 06/28/2013 12:00 AM IMMUNOTHERAPY INJECTIONS Reviewed 07/12/2013 12:00 AM X-RAY EXAM RIBS UNI 2 VIEWS Reviewed 07/18/2013 12:00 AM Toradol 60 Mg [facility]#6712-2302-12 Reviewed 07/18/2013 12:00 AM THER/PROPH/DIAG INJ SC/IM [...] Mg [facility]# [address]-32 Reviewed 09/14/2013 12:00 AM Depo-Medrol, Per 80 Mg [facility]#6449-5222-53 Reviewed 09/20/2013 12:00 AM IMMUNOTHERAPY INJECTIONS Reviewed [...] INJ OCCIPITAL Reviewed 12/10/2009 12:00 AM Kenalog Vt-[address]-20 ANNA Reviewed 12/16/2009 12:00 AM HIV-1ANTIBODY Reviewed 12/16/2009 12:00 AM COMPLETE CBC W/AUTO DIFF WBC Reviewed 12/16/2009 12:00 AM METABOLIC PANEL TOTAL CA Reviewed 12/16/2009 12:00 AM Type and screen Reviewed 12/16/2009 12:00 AM PROTHROMBIN TIME Reviewed 12/16/2009 12:00 AM THROMBOPLASTIN TIME PARTIAL Reviewed 03/18/2010 12:00 AM DRAIN/INJ JOINT/BURSA W/O US Reviewed 03/18/2010 12:00 AM Kenalog Eo-[address]-20 ANNA Reviewed 11/21/2013 12:00 AM RADEX HAND MINIMUM 3 VIEWS Reviewed 06/03/2010 12:00 AM INJ TRIGGER POINT 1/2 MUSCL Reviewed 06/03/2010 12:00 AM Kenalog per 10Mg Im-Nd#[address]-10(Niall) Reviewed 12/05/2013 12:00 AM COMPLETE CBC W/AUTO [...] Reviewed 07/23/2010 12:00 AM Kenalog per 10Mg Im-Ndc#[address]-30(Niall) Reviewed 2014 12:00 AM COMPLETE CBC W/AUTO [...] INJ OCCIPITAL Reviewed 10/01/2010 12:00 AM Kenalog Ii-[address]-20 ANNA Reviewed 07/25/2014 12:00 AM THER/PROPH/DIAG INJ [...] <0.80 RMSF , IgG, EIA Negative [facility] Spotted Fever,IgM 0.51 E. chaffeensis [...] 141 Influenza 04/24/2014 sanofi pasteur PMC Fluzone [id number] Intramuscular Left Upper Arm 02/27/2014 01/15/2014 141 Influenza 02/13/2015 sanofi pasteur PMC Fluzone [id number] Intramuscular Left Deltoid 02/13/2015 01/03/2015 140 Tdap 06/06/2015 [employer] SKB BOOSTRIX [id number] Intramuscular Left Deltoid 06/06/2015 07/23/2014 115 Influenza 03/18/2016 sanofi pasteur PMC Fluzone [id number] Intramuscular Left Deltoid 03/17/2016 01/03/2015 141 History [...] Lumbago b 6 2011 1:58PM Muscle Spasm Jul 05 2011 1:58PM Headache Fe 9 2011 1:38PM Heart Sound Abnormality b [...] 2016 10:33AM Polyuria Nov 02 2016 10:33AM Payers Insurance Name Company Name Plan Name Plan Number Policy Number Policy Group Number Start Date Medicare [facility] Medicare [facility] [id number] N/A [facility] RHC Comm [id number] N/A Medicare Part A Medicare - Lab/Xray [id number] N/A Medicare Part B Medicare Of [place] [id number] Monday, February 28, 2000 [place] [employer] [place] [employer] [id number] Tuesday, November 10, 2009 Medicare Part A Medicare Part A [id number] N/A [place] [employer] Consumer Affairs Prog - RHC [place] [employer] - [employer] [id number] May [facility] Plan of [id number] Wednesday, May 30, 2012 History of Encounters Visit Date Visit Type Provider 11/02/2016 Office visit Heena Dumont MD 10/06/2016 Office visit Kaylynn Mendez SALES UTILITY REPRESENTATIVE 09/22/2016 Office visit eHena Dumont MD 09/09/2016 Office visit Kaylynn Mendez SALES UTILITY REPRESENTATIVE 08/27/2016 Office visit Riccardo Cardoza MD 08/26/2016 Office visit Heena Dumont MD 07/09/2016 Office visit Riccardo Cardoza MD 07/06/2016 Office visit Heena Dumont MD 06/18/2016 Office visit Kaylynn Mendez SALES UTILITY REPRESENTATIVE 06/07/2016 Office visit Sundeep Russell SALES UTILITY REPRESENTATIVE 06/04/2016 Office visit Heena Dumont MD 05/13/2016 Office visit Heena Dumont MD 05/03/2016 Office visit Heena Dumont MD 04/26/2016 Office visit Kaylynn Mendez SALES UTILITY REPRESENTATIVE 04/14/2016 Office visit Heena Dumont MD 04/13/2016 Office visit Kaylynn Mendez SALES UTILITY REPRESENTATIVE 04/02/2016 Office visit Lena El SALES UTILITY REPRESENTATIVE 04/02/2016 Office visit Heena Dumont MD 03/26/2016 Office visit Yesica Falcon SALES UTILITY REPRESENTATIVE 03/17/2016 Office visit Heena Dumont MD 03/05/2016 Office visit Kaylynn Mendez SALES UTILITY REPRESENTATIVE 02/16/2016 Office visit Heena Dumont MD 02/14/2016 Office visit Na Jones SALES UTILITY REPRESENTATIVE 01/16/2016 Office visit Heena Dumont MD 12/16/2015 Office visit Heena Dumont MD 11/24/2015 Office visit Kaylynn Mendez SALES UTILITY REPRESENTATIVE 11/18/2015 Office visit Heena Dumont MD 11/03/2015 Office visit Sundeep Russell SALES UTILITY REPRESENTATIVE 10/20/2015 Office visit Kaylynn Walker SALES UTILITY REPRESENTATIVE 09/23/2015 Office visit Kaylynn Walker SALES UTILITY REPRESENTATIVE 09/16/[address] Pepe Figueroa MD 09/02/2015 Office visit Kaylynn Walker SALES UTILITY REPRESENTATIVE 09/01/2015 Office visit Kaylynn Walker SALES UTILITY REPRESENTATIVE 07/30/2015 Office visit Heena Dumont MD 07/15/2015 Office visit Kaylynn Walker SALES UTILITY REPRESENTATIVE 07/04/2015 Office visit Heena Dumont MD 06/06/2015 Office visit Heena Dumont MD 06/06/2015 Office visit Kaylynn Walker SALES UTILITY REPRESENTATIVE 06/02/2015 Office visit Kaylynn Walker SALES UTILITY REPRESENTATIVE 05/26/2015 Office visit Kaylynn Walker SALES UTILITY REPRESENTATIVE 05/20/2015 Office visit Kaylynn Walker SALES UTILITY REPRESENTATIVE 05/08/2015 Office visit Heena Dumont MD 05/06/2015 Office visit Kaylynn Walker SALES UTILITY REPRESENTATIVE 04/29/2015 Office visit Kaylynn Walker SALES UTILITY REPRESENTATIVE 03/27/2015 Voided Brittni Yanez SALES UTILITY REPRESENTATIVE 03/21/2015 Office visit Heena Dumont MD 03/12/2015 Office visit Kaylynn Mendez SALES UTILITY REPRESENTATIVE 02/26/2015 Office visit Brittni Yanez SALES UTILITY REPRESENTATIVE 02/13/2015 Office visit Heena Dumont MD 01/15/2015 Office visit Brittni Yanez SALES UTILITY REPRESENTATIVE 01/13/2015 Office visit Heena Dumont MD 01/08/[address] Carol Fowler MD 01/01/2015 Office visit Brittni Yanez SALES UTILITY REPRESENTATIVE 12/13/2014 Office visit Heena Dumont MD 11/27/2014 Office visit Kaylynn Mendez SALES UTILITY REPRESENTATIVE 11/14/2014 Office visit Heena Dumont MD 10/18/2014 Office visit Heena Dumont MD 10/17/2014 Hospital John Hoskins MD 10/09/2014 Office visit Heena Dumont MD 09/25/2014 Office visit Heena Dumont MD 09/17/2014 Office visit Kaylynn Mendez SALES UTILITY REPRESENTATIVE 09/04/2014 Office visit Heena Dumont MD 08/28/2014 Office visit Kaylynn Mendez SALES UTILITY REPRESENTATIVE 08/23/2014 [facility] John Hoskins MD 08/01/2014 Office visit Kaylynn Mendez SALES UTILITY REPRESENTATIVE 07/29/2014 Office visit Heena Dumont MD 07/25/2014 Nurse visit Heena Dumont MD 07/17/2014 Office visit Kaylynn Mendez SALES UTILITY REPRESENTATIVE 07/11/2014 Office visit Heena Dumont MD 07/01/2014 Office visit Heena Dumont MD 06/25/2014 Office visit Kaylynn Mendez SALES UTILITY REPRESENTATIVE 06/12/2014 Office visit Kaylynn Mendez SALES UTILITY REPRESENTATIVE 06/06/2014 Office visit Kaylynn Mendez SALES UTILITY REPRESENTATIVE 05/27/2014 Office visit Heena Dumont MD 04/20/2014 Office visit Yesica Falcon SALES UTILITY REPRESENTATIVE 03/29/2014 Office visit Na Jones SALES UTILITY REPRESENTATIVE 03/15/2014 Office visit Heena Dumont MD 2014 Office visit Heena Dumont MD 2014 [facility] John Hoskins MD 02/27/2014 Nurse visit Heena Dumont MD 02/13/2014 Office visit Lena El SALES UTILITY REPRESENTATIVE 02/07/2014 Office visit Heena Dumont MD 02/03/2014 Office visit Na Jones SALES UTILITY REPRESENTATIVE 01/30/2014 Office visit Kaylynn Mendez SALES UTILITY REPRESENTATIVE 01/24/2014 Office visit Sundeep Russell SALES UTILITY REPRESENTATIVE 01/16/2014 Office visit Kaylynn Mendez SALES UTILITY REPRESENTATIVE 01/10/2014 Nurse visit Kaylynn Mendez SALES UTILITY REPRESENTATIVE 01/08/2014 Office visit Kaylynn Walker SALES UTILITY REPRESENTATIVE 12/05/2013 Office visit Kaylynn Walker SALES UTILITY REPRESENTATIVE 11/21/2013 Office visit Kaylynn Mendez SALES UTILITY REPRESENTATIVE 10/23/2013 Office visit Brittni Yanez SALES UTILITY REPRESENTATIVE 10/17/2013 Nurse visit Heena Dumont MD 10/12/2013 Office visit Kaylynn Mendez SALES UTILITY REPRESENTATIVE 10/02/2013 Office visit Heena Dumont MD 09/20/2013 Nurse visit Kaylynn Mendez SALES UTILITY REPRESENTATIVE 09/20/2013 Voided Heena Dumont MD 09/14/2013 Office visit Kaylynn Walker SALES UTILITY REPRESENTATIVE 09/05/2013 Office visit Sundeep Russell SALES UTILITY REPRESENTATIVE 09/04/2013 Nurse visit Kaylynn Walker SALES UTILITY REPRESENTATIVE 08/31/2013 Office visit Kaylynn Walker SALES UTILITY REPRESENTATIVE 08/23/2013 Office visit Heena Dumont MD 08/10/2013 Office visit Kaylynn Walker SALES UTILITY REPRESENTATIVE 07/25/2013 Office visit Kaylynn Walker SALES UTILITY REPRESENTATIVE 07/18/2013 Office visit Kaylynn Walker SALES UTILITY REPRESENTATIVE 07/12/2013 Office visit Kaylynn Walker SALES UTILITY REPRESENTATIVE 06/28/2013 Nurse visit Kaylynn Walker SALES UTILITY REPRESENTATIVE 06/14/2013 Nurse visit Kaylynn Walker SALES UTILITY REPRESENTATIVE 06/08/2013 Nurse visit Kaylynn Walker SALES UTILITY REPRESENTATIVE 05/31/2013 Nurse visit Chadd Norris DO 05/18/2013 Office visit Terese Davidson MD 05/16/2013 Office visit Kaylynn Walker SALES UTILITY REPRESENTATIVE 05/09/2013 Office visit Kaylynn Walker SALES UTILITY REPRESENTATIVE 04/29/2013 [facility] John Hoskins MD 04/25/2013 Nurse visit Kaylynn Walker SALES UTILITY REPRESENTATIVE 04/17/2013 Office visit Kaylynn Walker SALES UTILITY REPRESENTATIVE 04/03/2013 Nurse visit Kaylynn Walker SALES UTILITY REPRESENTATIVE 04/03/2013 Office visit Terese Davidson MD 03/28/2013 Office visit Sundeep Russell SALES UTILITY REPRESENTATIVE 03/21/2013 Office visit Kaylynn Mendez SALES UTILITY REPRESENTATIVE 03/20/2013 Office visit Terese Davidson MD 03/14/2013 Nurse visit Kaylynn Walker SALES UTILITY REPRESENTATIVE 03/05/2013 Nurse visit Kaylynn Walker SALES UTILITY REPRESENTATIVE 02/19/2013 Office visit Terese Davidson MD 02/16/2013 Nurse visit Kaylynn Walker SALES UTILITY REPRESENTATIVE 02/09/2013 Office visit Sundeep Russell SALES UTILITY REPRESENTATIVE 02/08/2013 Nurse visit Kaylynn Walker SALES UTILITY REPRESENTATIVE 02/01/2013 Nurse visit Kaylynn Walker SALES UTILITY REPRESENTATIVE 01/26/2013 Nurse visit Sabrina Andrea WOOD ROOM HAND 01/25/2013 Office visit Kaylynn Walker SALES UTILITY REPRESENTATIVE 01/22/2013 Office visit Yoan Castaneda MD 01/18/2013 Nurse visit Kaylynn Mendez SALES UTILITY REPRESENTATIVE 01/11/2013 Nurse visit Kaylynn Walker SALES UTILITY REPRESENTATIVE 01/05/2013 Nurse visit Kaylynn Walker SALES UTILITY REPRESENTATIVE 12/29/2012 Office visit Kaylynn Walker SALES UTILITY REPRESENTATIVE 11/27/2012 Office visit Kaylynn Mendez SALES UTILITY REPRESENTATIVE 11/08/2012 Office visit Odell Tierney MD 11/08/2012 Voided Odell Tierney MD 11/07/2012 Office visit Kaylynn Mendez SALES UTILITY REPRESENTATIVE 10/31/2012 [facility] John Hoskins MD 10/31/2012 Office visit Kaylynn Mendez SALES UTILITY REPRESENTATIVE 10/19/2012 Office visit Genoveva Ayala SALES UTILITY REPRESENTATIVE 10/10/2012 Office visit Kaylynn Mendez SALES UTILITY REPRESENTATIVE 10/03/2012 Office visit Kaylynn Walker SALES UTILITY REPRESENTATIVE 09/26/2012 Office visit Kaylynn Walker SALES UTILITY REPRESENTATIVE 09/06/2012 Office visit Kaylynn Mendez SALES UTILITY REPRESENTATIVE 09/06/2012 Office visit Odell Tierney MD 08/31/2012 Voided Kaylynn Mendez SALES UTILITY REPRESENTATIVE 07/28/2012 Office visit Kaylynn Mendez SALES UTILITY REPRESENTATIVE 07/27/2012 Office visit David Joyner DO 07/20/2012 [facility] David Joyner DO 07/13/2012 [facility] David Joyner DO 07/11/2012 Office visit Kaylynn Mendez SALES UTILITY REPRESENTATIVE 06/27/2012 [facility] Odell Tierney MD 06/21/2012 Office visit David Joyner DO 06/21/2012 Office visit Odell Tierney MD 06/20/2012 Office visit Brittni Yanez SALES UTILITY REPRESENTATIVE 06/06/2012 Office visit Odell Tierney MD 05/03/2012 Office visit Kaylynn Mendez SALES UTILITY REPRESENTATIVE 04/28/2012 Office visit Brittni Yanez SALES UTILITY REPRESENTATIVE 04/11/2012 Office visit Kaylynn Mendez SALES UTILITY REPRESENTATIVE 04/06/2012 [facility] John Hoskins MD 03/30/2012 Office visit Kaylynn Mendez SALES UTILITY REPRESENTATIVE 03/15/2012 Office visit Kaylynn Walker SALES UTILITY REPRESENTATIVE 03/15/2012 Office visit Odell Tierney MD 02/09/2012 Office visit Kaylynn Walker SALES UTILITY REPRESENTATIVE 12/23/2011 Office visit Kaylynn Walker SALES UTILITY REPRESENTATIVE 11/02/2011 Office visit Kaylynn Walker SALES UTILITY REPRESENTATIVE 10/14/2011 Office visit Kaylynn Walker SALES UTILITY REPRESENTATIVE 09/27/2011 Office visit Kaylynn Walker SALES UTILITY REPRESENTATIVE 08/19/2011 Hospital John Hoskins MD 08/18/2011 [facility] John Hoskins MD 08/18/2011 Office visit Kaylynn Mendez SALES UTILITY REPRESENTATIVE 08/02/2011 Office visit Kaylynn Mendez SALES UTILITY REPRESENTATIVE 07/08/2011 Office visit Kaylynn Andrea SALES UTILITY REPRESENTATIVE 07/05/2011 Office visit Odell Tierney MD 06/15/2011 Office visit Kaylynn Mendez SALES UTILITY REPRESENTATIVE 05/14/2011 Office visit Kaylynn Andrea SALES UTILITY REPRESENTATIVE 05/11/2011 Office visit Odell Tierney MD 04/28/2011 Office visit Kaylynn Mendez SALES UTILITY REPRESENTATIVE 03/02/2011 Office visit Chadd Norris DO [...]
--- OUTSIDE RECORDS SUMMARY | 2018-05-09 21:35 | XMS REPORT ---
Author Author Heena Dumont Organization [facility] Address [address] [place], [place] [id number] Care Team Providers Care Patcher Name Role Phone Heena Dumont PCP Allergies [...] A DAY (AT BEDTIME) FOR 30 DAYS Name Start Date Expiration [...] 08/27/2014 use as directed for 99 days [place] 5-325 mg oral tablet 06/17/2014 06/27/2014 take [...] a day as needed for 30 days hklvrnan-[id number]-VU 3.5-10,000-1 mg/mL-unit/mL-% otic drops,suspension 201401/08/2015 instill 4 [...] AM Decadron 1 mg [facility]#[id number] (Jr) Reviewed 04/28/2011 12:00 AM Depo-Medrol 80 mg ND#[id number]-Jksxnmic Reviewed 09/02/2015 12:00 AM Toradol 60 Mg ND#6280-8373-01 Reviewed 09/02/2015 12:00 AM Phenergan, Up to 50 Mg [facility] Medicaid Reviewed 09/16/2015 12:00 AM Toradol 60 Mg ND#1397-5067-78 Reviewed 09/16/2015 12:00 AM Phenergan Up to 50 mg RHC Medicare Reviewed 05/11/2011 12:00 AM N BLOCK INJ OCCIPITAL Reviewed 05/11/2011 12:00 AM Kenalog Jc-[address]-20 ANNA Reviewed 11/13/2015 12:00 AM ASSAY OF [...] INJ SC/IM Reviewed 07/08/2011 12:00 AM Toradol,15mg ND#[id number], Adilene Reviewed 07/08/2011 12:00 AM Phenergan 50 Mg Im [facility] 1519-6797-59 [facility] Reviewed 08/02/2011 12:00 AM THER/PROPH/DIAG INJ SC/IM Reviewed 08/02/2011 12:00 AM Decadron 1 mg NDC#[id number] (Jr) Reviewed 08/02/2011 12:00 AM Depo-Medrol 80 mg NDC#[id number]-Dswpaskk Reviewed 09/27/2011 12:00 AM THER/PROPH/DIAG INJ SC/IM Reviewed 09/27/2011 12:00 AM Depo-Medrol 80 mg NDC#[id number]-Cnaiuzbi Reviewed 10/14/2011 12:00 AM X-RAY EXAM OF ABDOMEN Returned 10/14/2011 12:00 AM URINALYSIS AUTO W/O SCOPE Reviewed 12/23/2011 12:00 AM THER/PROPH/DIAG INJ SC/IM Reviewed 12/23/2011 12:00 AM Decadron 1 mg NDC#[id number] (Jr) Reviewed 12/23/2011 12:00 AM Depo-Medrol 80 mg NDC#[id number]-Firflsme Reviewed 02/09/2012 12:00 AM THER/PROPH/DIAG INJ SC/IM Reviewed 02/09/2012 12:00 AM Decadron 1 mg NDC#13260114682 (Rj) Reviewed 02/09/2012 12:00 AM Depo-Medrol 80 mg NDC#[id number]-Ysaqalva Reviewed 03/15/2012 12:00 AM N BLOCK INJ OCCIPITAL Reviewed 03/15/2012 12:00 AM Kenalog Vu-[address]-20 ANNA Reviewed 04/11/2012 12:00 AM COMPLETE CBC W/AUTO DIFF WBC Returned 04/11/2012 12:00 AM COMPREHEN METABOLIC PANEL Returned 04/11/2012 12:00 AM LIPID PANEL Returned 04/11/2012 12:00 AM ASSAY THYROID STIM HORMONE Returned 06/20/2012 12:00 AM THER/PROPH/DIAG INJ SC/IM Reviewed 06/20/2012 12:00 AM Decadron, Per 1 Mg NDC# [address]-59 Reviewed 06/20/2012 12:00 AM Depo-Medrol, Per 80 Mg NDC#4733-0315-33 Reviewed 09/06/2012 12:00 AM N BLOCK INJ OCCIPITAL Reviewed 09/06/2012 12:00 AM Kenalog Xd-[address]-20 ANNA Reviewed 09/06/2012 12:00 AM X-RAY EXAM RIBS UNI 2 VIEWS Returned 09/26/2012 12:00 AM THER/PROPH/DIAG INJ SC/IM Reviewed 09/26/2012 12:00 AM Decadron, Per 1 Mg [facility]# [address]-78 Reviewed 09/26/2012 12:00 AM Depo-Medrol, Per 80 Mg ND#7182-8315-56 Reviewed 10/03/2012 12:00 AM URINALYSIS AUTO W/O SCOPE Reviewed 10/03/2012 12:00 AM THER/PROPH/DIAG INJ SC/IM Reviewed 10/03/2012 12:00 AM Toradol 60 Mg ND#0837-3605-27 Reviewed 10/03/2012 12:00 AM Phenergan, 25Mg [facility]#7184-8174-97 Reviewed 10/19/2012 12:00 AM N BLOCK INJ OCCIPITAL Reviewed 10/19/2012 12:00 AM Kenalog, Per 10 Mg [facility]#8285-0255-66 Reviewed 10/19/2012 12:00 AM Toradol 30 Mg ND#2816-8016-11 Reviewed 10/19/2012 12:00 AM THER/PROPH/DIAG INJ SC/IM Reviewed 10/31/2012 12:00 AM COMPLETE CBC W/AUTO DIFF WBC Returned 10/31/2012 12:00 AM COMPREHEN METABOLIC PANEL Returned 10/31/2012 12:00 AM LIPID PANEL Returned 11/03/2012 12:[address] THORAX W/O & W/DYE Returned 11/08/2012 12:00 AM N BLOCK INJ OCCIPITAL Reviewed 11/08/2012 12:00 AM Kenalog On-[address]-20 ANNA Reviewed 11/27/2012 12:00 AM COMPLETE CBC [...] Decadron, Per 1 Mg [facility]# [address]-52 Reviewed 01/25/2013 12:00 AM Depo-Medrol, Per 80 Mg [facility]#3592-9107-34 Reviewed 01/26/2013 12:00 AM IMMUNOTHERAPY INJECTIONS Returned [...] Decadron, Per 1 Mg [facility]# [address]-12 Reviewed 05/16/2013 12:00 AM Depo-Medrol, Per 80 Mg [facility]#9126-0874-28 Reviewed 05/31/2013 12:00 AM IMMUNOTHERAPY INJECTIONS Reviewed 06/08/2013 12:00 AM IMMUNOTHERAPY INJECTIONS Reviewed 06/14/2013 12:00 AM IMMUNOTHERAPY INJECTIONS Reviewed 06/28/2013 12:00 AM IMMUNOTHERAPY INJECTIONS Reviewed 07/12/2013 12:00 AM X-RAY EXAM RIBS UNI 2 VIEWS Returned 07/18/2013 12:00 AM Toradol 60 Mg [facility]#8778-1411-54 Reviewed 07/18/2013 12:00 AM THER/PROPH/DIAG INJ SC/IM Reviewed 08/23/2013 12:00 AM COMPLETE CBC W/AUTO DIFF WBC Reviewed 08/23/2013 12:00 AM COMPREHEN METABOLIC PANEL Reviewed 08/23/2013 12:00 AM LIPID PANEL Reviewed 08/31/2013 12:00 AM X-RAY EXAM OF LOWER LEG Returned 09/04/2013 12:00 AM IMMUNOTHERAPY INJECTIONS Reviewed 09/14/2013 12:00 AM THER/PROPH/DIAG INJ SC/IM Reviewed 09/14/2013 12:00 AM Decadron, Per 1 Mg [facility]# [address]-82 Reviewed 09/14/2013 12:00 AM Depo-Medrol, Per 80 Mg [facility]#3433-6792-77 Reviewed 09/20/2013 12:00 AM IMMUNOTHERAPY INJECTIONS Reviewed [...] INJ OCCIPITAL Reviewed 12/10/2009 12:00 AM Quentin Xc-[address]-20 ANNA Reviewed 12/16/2009 12:00 AM HIV-1ANTIBODY Reviewed 12/16/2009 12:00 AM COMPLETE CBC W/AUTO DIFF WBC Reviewed 12/16/2009 12:00 AM METABOLIC PANEL TOTAL CA Reviewed 12/16/2009 12:00 AM Type and screen Reviewed 12/16/2009 12:00 AM PROTHROMBIN TIME Reviewed 12/16/2009 12:00 AM THROMBOPLASTIN TIME PARTIAL Reviewed 03/18/2010 12:00 AM DRAIN/INJ JOINT/BURSA W/O US Reviewed 03/18/2010 12:00 AM Quentin Co-[address]-20 ANNA Reviewed 11/21/2013 12:00 AM RADEX HAND MINIMUM 3 VIEWS Returned 06/03/2010 12:00 AM INJ TRIGGER POINT 1/2 MUSCL Reviewed 06/03/2010 12:00 AM Kenalog per 10Mg Im-[facility]#[address]-29(Niall) Reviewed 12/05/2013 12:00 AM COMPLETE CBC W/AUTO [...] AM Kenalog per 10Mg Im-[facility]#[address]-03(Niall) Reviewed 2014 12:00 AM COMPLETE CBC W/AUTO [...] INJ OCCIPITAL Reviewed 10/01/2010 12:00 AM Kenalog Qx-[address]-20 ANNA Reviewed 07/25/2014 12:00 AM THER/PROPH/DIAG INJ [...] 0.60 mg/dLCALCIUM 10.90 mg/ dLeGFR >60 mL/min/1.73 [id number] 45.0 U/L 08/31/2013 10:54 AM GLUCOSE 255.0 [...] 0.40 mg/ dLCALCIUM 10.60 mg/dLeGFR >60 mL/min/1.73 [id number] 369.0 mg/ dLCHOLESTEROL 153.0 mg/dLHDL 26.0 mg/dLLDL [...] BILI 0.30 mg/dLCALCIUM 10.0 mg/dLeGFR >60 mL/min/1.73 [id number] YELLOW APPEARANCE CLEAR SPEC GRAV 1.010 pH [...] 141 Influenza 04/24/2014 sanofi pasteur PMC Fluzone [id number] Intramuscular Left Upper Arm 02/27/2014 01/15/2014 141 Influenza 02/13/2015 sanofi pasteur PMC Fluzone [id number] Intramuscular Left Deltoid 02/13/2015 01/03/2015 140 Tdap [...] encounter b 2014 4:46PM Ankle instability, left Feb 2014 11:30AM Ankle pain b 2014 11:30AM History of fall b 2014 11:30AM Headache Feb 2014 11:30AM Osteoporosis Feb 2014 2:09PM Post [...] 1:41PM Lichen sclerosus Nov 18 2015 1:41PM Payers Insurance Name Company Name Plan Name Plan Number Policy Number Policy Group Number Start Date Medicare Part A Medicare RHC [id number] N/A [facility] - [facility] RHC Comm [id number] N/A Medicare Part A Medicare - Lab/Xray [id number] N/A Medicare Part B Medicare Of [place] [id number] Monday, February 28, 2000 [place] [employer] [place] [employer] [place] [id number] Tuesday, November 10, 2009 Medicare Part A Medicare Part A [id number] N/A [place] [employer] [place] [employer] - [place]HC [id number] [facility] Comm Plan of [id number] Wednesday, May 30, 2012 History of Encounters Visit Date Visit Type Provider 12/16/2015 Office visit Heena Dumont MD 11/24/2015 Office visit Kaylynn Mendez CLERICAL SECRETARY 11/18/2015 Office visit Heena Dumont MD 11/03/2015 Office visit Sundeep Russell CLERICAL SECRETARY 10/20/2015 Office visit Kaylynn Mendez CLERICAL SECRETARY 09/23/2015 Office visit Kaylynn Mendez CLERICAL SECRETARY 09/16/[address] Pepe Figueroa MD 09/02/2015 Office visit Kaylynn Mendez CLERICAL SECRETARY 09/01/2015 Office visit Kaylynn Mendez CLERICAL SECRETARY 07/30/2015 Office visit Heena Dumont MD 07/15/2015 Office visit Kaylynn Mendez CLERICAL SECRETARY 07/04/2015 Office visit Heena Dumont MD 06/06/2015 Office visit Heena Duomnt MD 06/06/2015 Office visit Kaylynn Mendez CLERICAL SECRETARY 06/02/2015 Office visit Kaylynn Walker CLERICAL SECRETARY 05/26/2015 Office visit Kaylynn Walker CLERICAL SECRETARY 05/20/2015 Office visit Kaylynn Walker CLERICAL SECRETARY 05/08/2015 Office visit Heena Dumont MD 05/06/2015 Office visit Kaylynn Mendez CLERICAL SECRETARY 04/29/2015 Office visit Kaylynn Walker CLERICAL SECRETARY 03/27/2015 Voided Brittni Yanez CLERICAL SECRETARY 03/21/2015 Office visit Heena Dumont MD 03/12/2015 Office visit Kaylynn Mendez CLERICAL SECRETARY 02/26/2015 Office visit Brittni Yanez CLERICAL SECRETARY 02/13/2015 Office visit Heena Dumont MD 01/15/2015 Office visit Brittni Yanez CLERICAL SECRETARY 01/13/2015 Office visit Heena Dumont MD 01/08/[address] Carol Fowler MD 01/01/2015 Office visit Brittni Yanez CLERICAL SECRETARY 12/13/2014 Office visit Heena Dumont MD 11/27/2014 Office visit Kaylynn eMndez CLERICAL SECRETARY 11/14/2014 Office visit Heena Dumont MD 10/18/2014 Office visit Heena Dumont MD 10/17/2014 [facility] John Hoskins MD 10/09/2014 Office visit Heena Dumont MD 09/25/2014 Office visit Heena Dumont MD 09/17/2014 Office visit Kaylynn Mendez CLERICAL SECRETARY 09/04/2014 Office visit Heena Dumont MD 08/28/2014 Office visit Kaylynn Mendez CLERICAL SECRETARY 08/23/2014 [facility] Hos[facility] MD 08/01/2014 Office visit Kaylynn Mendez CLERICAL SECRETARY 07/29/2014 Office visit Heena Dumont MD 07/25/2014 Nurse visit Heena Dumont MD 07/17/2014 Office visit Kaylynn Mendez CLERICAL SECRETARY 07/11/2014 Office visit Heena Dumont MD 07/01/2014 Office visit Heena Dumont MD 06/25/2014 Office visit Kaylynn Mendez CLERICAL SECRETARY 06/12/2014 Office visit Kaylynn Mendez CLERICAL SECRETARY 06/06/2014 Office visit Kaylynn Mendez CLERICAL SECRETARY 05/27/2014 Office visit Heena Dumont MD 04/20/2014 Office visit Yesica Falcon CLERICAL SECRETARY 03/29/2014 Office visit Na Jones CLERICAL SECRETARY 03/15/2014 Office visit Heena Dumont MD 2014 Office visit Heena Dumont MD 2014 [facility] John Hoskins MD 02/27/2014 Nurse visit Heena Dumont MD 02/13/2014 Office visit Lena El CLERICAL SECRETARY 02/07/2014 Office visit Heena Dumont MD 02/03/2014 Office visit Na Jones CLERICAL SECRETARY 01/30/2014 Office visit Kaylynn Mendez CLERICAL SECRETARY 01/24/2014 Office visit Sundeep Russell CLERICAL SECRETARY 01/16/2014 Office visit Kaylynn Walker CLERICAL SECRETARY 01/10/2014 Nurse visit Kaylynn Walker CLERICAL SECRETARY 01/08/2014 Office visit Kaylynn Walker CLERICAL SECRETARY 12/05/2013 Office visit Kaylynn Walker CLERICAL SECRETARY 11/21/2013 Office visit Kaylynn Walker CLERICAL SECRETARY 10/23/2013 Office visit Brittni Yanez CLERICAL SECRETARY 10/17/2013 Nurse visit Heena Dumont MD 10/12/2013 Office visit Kaylynn Walker CLERICAL SECRETARY 10/02/2013 Office visit Heena Dumont MD 09/20/2013 Nurse visit Kaylynn Mendez CLERICAL SECRETARY 09/20/2013 Voided Heena Dumont MD 09/14/2013 Office visit Kaylynn Walker CLERICAL SECRETARY 09/05/2013 Office visit Sundeep Russell CLERICAL SECRETARY 09/04/2013 Nurse visit Kaylynn Mendez CLERICAL SECRETARY 08/31/2013 Office visit Kaylynn Walker CLERICAL SECRETARY 08/23/2013 Office visit Heena Dumont MD 08/10/2013 Office visit Kaylynn Walker CLERICAL SECRETARY 07/25/2013 Office visit Kaylynn Walker CLERICAL SECRETARY 07/18/2013 Office visit Kaylynn Walker CLERICAL SECRETARY 07/12/2013 Office visit Kaylynn Walker CLERICAL SECRETARY 06/28/2013 Nurse visit Kaylynn Walker CLERICAL SECRETARY 06/14/2013 Nurse visit Kaylynn Walker CLERICAL SECRETARY 06/08/2013 Nurse visit Kaylynn Walker CLERICAL SECRETARY 05/31/2013 Nurse visit Chadd Norris DO 05/18/2013 Office visit Terese Davidson MD 05/16/2013 Office visit Kaylynn Mendez CLERICAL SECRETARY 05/09/2013 Office visit Kaylynn Mendez CLERICAL SECRETARY 04/29/2013 [facility] John Hoskins MD 04/25/2013 Nurse visit Kaylynn Walker CLERICAL SECRETARY 04/17/2013 Office visit Kaylynn Walker CLERICAL SECRETARY 04/03/2013 Nurse visit Kaylynn Mendez CLERICAL SECRETARY 04/03/2013 Office visit Terese Davidson MD 03/28/2013 Office visit Sundeep Russell CLERICAL SECRETARY 03/21/2013 Office visit Kaylynn Mendez CLERICAL SECRETARY 03/20/2013 Office visit Terese Davidson MD 03/14/2013 Nurse visit Kaylynn Mendez CLERICAL SECRETARY 03/05/2013 Nurse visit Kaylynn Walker CLERICAL SECRETARY 02/19/2013 Office visit Terese Davidson MD 02/16/2013 Nurse visit Kaylynn Walker CLERICAL SECRETARY 02/09/2013 Office visit Sundeep Russell CLERICAL SECRETARY 02/08/2013 Nurse visit Kaylynn Walker CLERICAL SECRETARY 02/01/2013 Nurse visit Kaylynn Walker CLERICAL SECRETARY 01/26/2013 Nurse visit Sabrina Andrea TREASURY REPRESENTATIVE 01/25/2013 Office visit Kaylynn Andrea CLERICAL SECRETARY 01/22/2013 Office visit Yoan Castaneda MD 01/18/2013 Nurse visit Kaylynn Walker CLERICAL SECRETARY 01/11/2013 Nurse visit Kaylynn Walker CLERICAL SECRETARY 01/05/2013 Nurse visit Kaylynn Walker CLERICAL SECRETARY 12/29/2012 Office visit Kaylynn Andrea CLERICAL SECRETARY 11/27/2012 Office visit Kaylynn Mendez CLERICAL SECRETARY 11/08/2012 Office visit Odell Tierney MD 11/08/2012 Voided Odell Tierney MD 11/07/2012 Office visit Kaylynn Mendez CLERICAL SECRETARY 10/31/2012 [facility] John Hoskins MD 10/31/2012 Office visit Kaylynn Mendez CLERICAL SECRETARY 10/19/2012 Office visit Genoveva Ayala CLERICAL SECRETARY 10/10/2012 Office visit Kaylynn Mendez CLERICAL SECRETARY 10/03/2012 Office visit Kaylynn Mendez CLERICAL SECRETARY 09/26/2012 Office visit Kaylynn Mendez CLERICAL SECRETARY 09/06/2012 Office visit Kaylynn Mendez CLERICAL SECRETARY 09/06/2012 Office visit Odell Tierney MD 08/31/2012 Voided Kaylynn Mendez CLERICAL SECRETARY 07/28/2012 Office visit Kaylynn Mendez CLERICAL SECRETARY 07/27/2012 Office visit David Joyner DO 07/20/2012 [facility] David Joyner DO 07/13/2012 [facility] David Joyner DO 07/11/2012 Office visit Kaylynn Mendez CLERICAL SECRETARY 06/27/2012 [facility] Odell Tierney MD 06/21/2012 Office visit David Joyner DO 06/21/2012 Office visit Odell Tierney MD 06/20/2012 Office visit Brittni Yanez CLERICAL SECRETARY 06/06/2012 Office visit Odell Tierney MD 05/03/2012 Office visit Kaylynn Mendez CLERICAL SECRETARY 04/28/2012 Office visit Brittni Yanez CLERICAL SECRETARY 04/11/2012 Office visit Kaylynn Mendez CLERICAL SECRETARY 04/06/2012 [facility] John Hoskins MD 03/30/2012 Office visit Kaylynn Mendez CLERICAL SECRETARY 03/15/2012 Office visit Kaylynn Mendez CLERICAL SECRETARY 03/15/2012 Office visit Odell Tierney MD 02/09/2012 Office visit Kaylynn Mendez CLERICAL SECRETARY 12/23/2011 Office visit Kaylynn Mendez CLERICAL SECRETARY 11/02/2011 Office visit Kaylynn Mendez CLERICAL SECRETARY 10/14/2011 Office visit Kaylynn Mendez CLERICAL SECRETARY 09/27/2011 Office visit Kaylynn Mendez CLERICAL SECRETARY 08/19/2011 [facility] MD 08/18/2011 [facility] MD 08/18/2011 Office visit Kaylynn Mendez CLERICAL SECRETARY 08/02/2011 Office visit Kaylynn Mendez CLERICAL SECRETARY 07/08/2011 Office visit Kaylynn Mendez CLERICAL SECRETARY 07/05/2011 Office visit Odell Tierney MD 06/15/2011 Office visit Kaylynn Mendez CLERICAL SECRETARY 05/14/2011 Office visit Kaylynn Andrea CLERICAL SECRETARY 05/11/2011 Office visit Odell Tierney MD 04/28/2011 Office visit Kaylynn Mendez CLERICAL SECRETARY 03/02/2011 Office visit Chadd Norris DO 02/17/2011 [...]
--- OUTSIDE RECORDS SUMMARY | 2018-05-09 21:40 | XMS REPORT ---
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 EdnaTonad[facility] Mandel Lancets 33 [facility] 01[facility]21/2016 use as directed cetirizine [...] oral route once daily for 7 days Diflucan 150 mg oral tablet 06/24/2017 take 1 tablet (150 mg) by oral route once for 1 day Macrobid 100 mg oral capsule 06/24/2017 take 1 capsule (100 mg) by oral route every 12 hours with food for 7 days Name Start Date Expiration [...] 08/27/2014 use as directed for 99 days [place] 5-325 mg oral tablet 06/17/2014 06/27/2014 take [...] a day as needed for 30 days irtvvupj-vtfrjzcqz-UM 3.5-10,000-1 mg/mL-unit/mL-% otic drops,suspension 201401/08/2015 instill 4 [...] Ok for similiar substitution or individual components. mbejtlvw-eaevfqitb-UX 3.5-10,000-1 mg/mL-unit/mL-% otic drops,suspension 201607/23/2016 instill 4 [...] HC BMI BSA BMI Percentile O2 Sat(%) 06/24/2017 10:30:00 AM 124 mmHg 84 mmHg [...] AM Decadron 1 mg [facility]#[id number] (Jr) Reviewed 04/28/2011 12:00 AM Depo-Medrol 80 mg ND#[id number]-Igfouiry Reviewed 09/02/2015 12:00 AM Toradol 60 Mg [facility]#6624-8469-24 Reviewed 09/02/2015 12:00 AM Phenergan, Up to 50 Mg [facility] Medicaid Reviewed 09/16/2015 12:00 AM Toradol 60 Mg [facility]#6330-0809-73 Reviewed 09/16/2015 12:00 AM Phenergan Up to 50 mg RHC Medicare Reviewed 05/11/2011 12:00 AM N BLOCK INJ OCCIPITAL Reviewed 05/11/2011 12:00 AM Kenalog Sj-[address]-20 ANNA Reviewed 11/13/2015 12:00 AM ASSAY OF [...] 07/08/2011 12:00 AM Toradol,15mg [facility]#[id number], Adilene Reviewed 07/08/2011 12:00 AM Phenergan 50 Mg Im [facility] 7858-6001-94 ALLIE Hoskins Reviewed 01/21/2016 12:00 AM ECG MONIT/REPRT UP TO 48 HRS Returned 08/02/2011 12:00 AM THER/PROPH/DIAG INJ SC/IM Reviewed 08/02/2011 12:00 AM Decadron 1 mg [facility]#[id number] (Jr) Reviewed 08/02/2011 12:00 AM Depo-Medrol 80 mg [facility]#[id number]-Wjdokvbj Reviewed 03/05/2016 12:00 AM COMPLETE CBC W/AUTO [...] Reviewed 09/27/2011 12:00 AM Depo-Medrol 80 mg NDC#[id number]-Fmxyftmq Reviewed 09/27/2011 12:00 AM Depo-Medrol 40 mg N[facility]#[id number] Reviewed 07/06/2016 12:00 AM CHEST X-RAY 4/> [...] Reviewed 12/23/2011 12:00 AM Decadron 1 mg [facility]#[id number] (Jr) Reviewed 12/23/2011 12:00 AM Depo-Medrol 80 mg N[facility]#[id number]-Rdflaoqu Reviewed 11/02/2016 11:45 AM URINALYSIS AUTO W/O [...] Reviewed 02/09/2012 12:00 AM Decadron 1 mg [facility]#[id number] (Jr) Reviewed 02/09/2012 12:00 AM Depo-Medrol 80 mg [facility]#[id number]-Pcwkjepa Reviewed 02/21/2017 12:00 AM CULTURE OTHR SPECIMN AEROBIC Returned 02/21/2017 12:00 AM INFLUENZA ASSAY W/OPTIC Returned 02/23/2017 12:00 AM COMPLETE CBC W/AUTO DIFF WBC Reviewed 02/23/2017 12:00 AM X-RAY EXAM OF KNEE 3 Returned 03/15/2012 12:00 AM N BLOCK INJ OCCIPITAL Reviewed 03/15/2012 12:00 AM Kenalog Ph-90046-1957-20 ANNA Reviewed 04/11/2012 12:00 AM COMPLETE CBC [...] 12:00 AM ANTIBODY DETECTION NOS IF Returned 06/24/2017 12:00 AM COMPLETE CBC W/AUTO DIFF WBC Returned 06/24/2017 12:00 AM COMPREHEN METABOLIC PANEL Returned 06/24/2017 12:00 AM URNLS DIP STICK/TABLET RGNT AUTO W/O MICROSCOPY Returned 06/24/2017 12:00 AM RBC SED RATE AUTOMATED Returned 06/02/2017 12:00 AM EXTRACRANIAL BILAT STUDY Returned 06/20/2012 12:00 AM THER/PROPH/DIAG INJ SC/IM Reviewed 06/20/2012 12:00 AM Decadron, Per 1 Mg ND# [address]-75 Reviewed 06/20/2012 12:00 AM Depo-Medrol, Per 80 Mg NDC#5279-8952-91 Reviewed 09/06/2012 12:00 AM N BLOCK INJ OCCIPITAL Reviewed 09/06/2012 12:00 AM Kenalog Xd-[address]-20 ANNA Reviewed 09/06/2012 12:00 AM X-RAY EXAM RIBS UNI 2 VIEWS Reviewed 09/26/2012 12:00 AM THER/PROPH/DIAG INJ SC/IM Reviewed 09/26/2012 12:00 AM Decadron, Per 1 Mg ND# [address]-12 Reviewed 09/26/2012 12:00 AM Depo-Medrol, Per 80 Mg NDC#0307-9125-22 Reviewed 10/03/2012 12:00 AM URINALYSIS AUTO W/O SCOPE Reviewed 10/03/2012 12:00 AM THER/PROPH/DIAG INJ SC/IM Reviewed 10/03/2012 12:00 AM Toradol 60 Mg N[facility]#3112-6465-37 Reviewed 10/03/2012 12:00 AM Phenergan, 25Mg ND#1394-0973-77 Reviewed 10/19/2012 12:00 AM N BLOCK INJ OCCIPITAL Reviewed 10/19/2012 12:00 AM Kenalog, Per 10 Mg N[facility]#2389-7215-39 Reviewed 10/19/2012 12:00 AM Toradol 30 Mg N[facility]#0484-8972-47 Reviewed 10/19/2012 12:00 AM THER/PROPH/DIAG INJ SC/IM Reviewed 10/31/2012 12:00 AM COMPLETE CBC W/AUTO DIFF WBC Reviewed 10/31/2012 12:00 AM COMPREHEN METABOLIC PANEL Reviewed 10/31/2012 12:00 AM LIPID PANEL Reviewed 10/31/2012 12:00 AM ELECTROCARDIOGRAM COMPLETE Reviewed 11/03/2012 12:[address] THORAX W/O & W/DYE Reviewed 11/08/2012 12:00 AM N BLOCK INJ OCCIPITAL Reviewed 11/08/2012 12:00 AM Kenalog Nd-[address]-20 ANNA Reviewed 11/27/2012 12:00 AM COMPLETE CBC [...] Per 1 Mg [facility]# [address]-90 Reviewed 01/25/2013 12:00 AM Depo-Medrol, Per 80 Mg [facility]#9238-4593-72 Reviewed 01/26/2013 12:00 AM IMMUNOTHERAPY ONE INJECTION [...] Per 1 Mg [facility]# [address]-70 Reviewed 05/16/2013 12:00 AM Depo-Medrol, Per 80 Mg [facility]#3933-4219-30 Reviewed 05/31/2013 12:00 AM IMMUNOTHERAPY INJECTIONS Reviewed 06/08/2013 12:00 AM IMMUNOTHERAPY INJECTIONS Reviewed 06/14/2013 12:00 AM IMMUNOTHERAPY INJECTIONS Reviewed 06/28/2013 12:00 AM IMMUNOTHERAPY INJECTIONS Reviewed 07/12/2013 12:00 AM X-RAY EXAM RIBS UNI 2 VIEWS Reviewed 07/18/2013 12:00 AM Toradol 60 Mg [facility]#7235-4460-38 Reviewed 07/18/2013 12:00 AM THER/PROPH/DIAG INJ SC/IM Reviewed 08/23/2013 12:00 AM COMPLETE CBC W/AUTO DIFF WBC Reviewed 08/23/2013 12:00 AM COMPREHEN METABOLIC PANEL Reviewed 08/23/2013 12:00 AM LIPID PANEL Reviewed 08/31/2013 12:00 AM X-RAY EXAM OF LOWER LEG Reviewed 09/04/2013 12:00 AM IMMUNOTHERAPY INJECTIONS Reviewed 09/14/2013 12:00 AM THER/PROPH/DIAG INJ SC/IM Reviewed 09/14/2013 12:00 AM Decadron, Per 1 Mg [facility]# [address]-35 Reviewed 09/14/2013 12:00 AM Depo-Medrol, Per 80 Mg [facility]#0938-9444-69 Reviewed 09/20/2013 12:00 AM IMMUNOTHERAPY INJECTIONS Reviewed [...] INJ OCCIPITAL Reviewed 12/10/2009 12:00 AM Kenalog Gk-[address]-20 ANNA Reviewed 12/16/2009 12:00 AM HIV-1ANTIBODY Reviewed 12/16/2009 12:00 AM COMPLETE CBC W/AUTO DIFF WBC Reviewed 12/16/2009 12:00 AM METABOLIC PANEL TOTAL CA Reviewed 12/16/2009 12:00 AM Type and screen Reviewed 12/16/2009 12:00 AM PROTHROMBIN TIME Reviewed 12/16/2009 12:00 AM THROMBOPLASTIN TIME PARTIAL Reviewed 03/18/2010 12:00 AM DRAIN/INJ JOINT/BURSA W/O US Reviewed 03/18/2010 12:00 AM Kenalog Sm-[address]-20 ANNA Reviewed 11/21/2013 12:00 AM RADEX HAND MINIMUM 3 VIEWS Reviewed 06/03/2010 12:00 AM INJ TRIGGER POINT 1/2 MUSCL Reviewed 06/03/2010 12:00 AM Kenalog per 10Mg -[facility]#[address]-90(Niall) Reviewed 12/05/2013 12:00 AM COMPLETE CBC W/AUTO [...] Reviewed 07/23/2010 12:00 AM Kenalog per 10Mg Im-[facility]#[address]-74(Niall) Reviewed 2014 12:00 AM COMPLETE CBC W/AUTO [...] INJ OCCIPITAL Reviewed 10/01/2010 12:00 AM Kenalog Zw-[address]-20 ANNA Reviewed 07/25/2014 12:00 AM THER/PROPH/DIAG INJ [...] Quant,IgM <0.80 RMSF , IgG, EIA Negative [facility] Spotted Fever,IgM 0.51 E. chaffeensis [...] 141 Influenza 04/24/2014 sanofi pasteur PMC Fluzone [id number] Intramuscular Left Upper Arm 02/27/2014 01/15/2014 141 Influenza 02/13/2015 sanofi pasteur PMC Fluzone [id number] Intramuscular Left Deltoid 02/13/2015 01/03/2015 140 Tdap 06/06/2015 GlaxAnvato SKB BOOSTRIX [id number] Intramuscular Left Deltoid 06/06/2015 07/23/2014 115 Influenza 03/18/2016 [facility] Fluzone [id number] Intramuscular Left Deltoid 03/17/2016 01/03/2015 141 History [...] mellitus with hyperglycemia Jun 24 2017 10:33AM FPC (current) use of insulin Jun 24 2017 10:33AM Fatigue, unspecified type Jun 24 2017 10:33AM Malaise Jun 24 2017 10:33AM Tingling of left upper extremity Jun 02 2017 4:05PM Payers Insurance Name Company Name Plan Name Plan Number Policy Number Policy Group Number Start Date Medicare C Medicare RHC [id number] N/A 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 [id number] [facility] Comm Plan of [id number] Wednesday, May 30, 2012 History of Encounters Visit Date Visit Type Provider 06/24/2017 Office visit Sundeep Russell APRN 06/02/2017 Office visit Heena Dumont MD 04/20/2017 Office visit 04/20/2017 Office visit 04/20/2017 Office visit 04/20/2017 Office visit Heena Dumont MD 03/22/2017 Office visit Heena Dumont MD 03/05/2017 Office visit Lena Chaves TOP PRECIPITATOR OPERATOR HELPER 02/23/2017 Office visit Symone PolkBarbara Gildford TOP PRECIPITATOR OPERATOR HELPER 02/21/2017 Office visit Heena Dumont MD 02/15/2017 Office visit Heena Dumont MD 02/02/2017 Office visit Heena Dumont MD 01/07/2017 Office visit Riccardo Cardoza MD 01/03/2017 Office visit Heena Dumont MD 12/15/2016 Office visit Kaylynn Mendez TOP PRECIPITATOR OPERATOR HELPER 12/02/2016 Office visit Heena Dumont MD 11/23/2016 [facility] Eliseo Hoskins MD 11/23/2016 Office visit Kaylynn Mendez TOP PRECIPITATOR OPERATOR HELPER 11/17/2016 Office visit Kaylynn Mendez TOP PRECIPITATOR OPERATOR HELPER 11/05/2016 Office visit Riccardo Cardoza MD 11/02/2016 Office visit Heena Dumont MD 10/06/2016 Office visit Kaylynn Mendez TOP PRECIPITATOR OPERATOR HELPER 09/22/2016 Office visit Heena Dumont MD 09/09/2016 Office visit Kaylynn Mendez TOP PRECIPITATOR OPERATOR HELPER 08/27/2016 Office visit Riccardo Cardoza MD 08/26/2016 Office visit Heena Dumont MD 07/09/2016 Office visit Riccardo Cardoza MD 07/06/2016 Office visit Heena Dumont MD 06/18/2016 Office visit Kaylynn Mendez TOP PRECIPITATOR OPERATOR HELPER 06/07/2016 Office visit Sundepe Russell TOP PRECIPITATOR OPERATOR HELPER 06/04/2016 Office visit Heena Dumont MD 05/13/2016 Office visit Heena Dumont MD 05/03/2016 Office visit Heena Dumont MD 04/26/2016 Office visit Kaylynn Mendez TOP PRECIPITATOR OPERATOR HELPER 04/14/2016 Office visit Heena Dumont MD 04/13/2016 Office visit Kaylynn Mendez TOP PRECIPITATOR OPERATOR HELPER 04/02/2016 Office visit Lena El TOP PRECIPITATOR OPERATOR HELPER 04/02/2016 Office visit Heena Dumont MD 03/26/2016 Office visit Yesica Falcon TOP PRECIPITATOR OPERATOR HELPER 03/17/2016 Office visit Heena Dumont MD 03/05/2016 Office visit Kaylynn Mendez TOP PRECIPITATOR OPERATOR HELPER 02/16/2016 Office visit Heena Dumont MD 02/14/2016 Office visit Na Jones TOP PRECIPITATOR OPERATOR HELPER 01/16/2016 Office visit Heena Dumont MD 12/16/2015 Office visit Heena Dumont MD 11/24/2015 Office visit Kaylynn Mendez TOP PRECIPITATOR OPERATOR HELPER 11/18/2015 Office visit Heena Dumont MD 11/03/2015 Office visit Sundeep Russell TOP PRECIPITATOR OPERATOR HELPER 10/20/2015 Office visit Kaylynn Walker TOP PRECIPITATOR OPERATOR HELPER 09/23/2015 Office visit Kaylynn Walker TOP PRECIPITATOR OPERATOR HELPER 09/16/[address] Pepe Figueroa MD 09/02/2015 Office visit Kaylynn Walker TOP PRECIPITATOR OPERATOR HELPER 09/01/2015 Office visit Kaylynn Walker TOP PRECIPITATOR OPERATOR HELPER 07/30/2015 Office visit Heena Dumont MD 07/15/2015 Office visit Kaylynn Walker TOP PRECIPITATOR OPERATOR HELPER 07/04/2015 Office visit Heena Dumont MD 06/06/2015 Office visit Heena Dumont MD 06/06/2015 Office visit Kaylynn Walker TOP PRECIPITATOR OPERATOR HELPER 06/02/2015 Office visit Kaylynn Walker TOP PRECIPITATOR OPERATOR HELPER 05/26/2015 Office visit Kaylynn Walker TOP PRECIPITATOR OPERATOR HELPER 05/20/2015 Office visit Kaylynn Mendez TOP PRECIPITATOR OPERATOR HELPER 05/08/2015 Office visit Heena Dumont MD 05/06/2015 Office visit Kaylynn Mendez TOP PRECIPITATOR OPERATOR HELPER 04/29/2015 Office visit Kaylynn Mendez TOP PRECIPITATOR OPERATOR HELPER 03/27/2015 Voided Brittni Yanez TOP PRECIPITATOR OPERATOR HELPER 03/21/2015 Office visit Heena Dumont MD 03/12/2015 Office visit Kaylynn Mendez TOP PRECIPITATOR OPERATOR HELPER 02/26/2015 Office visit Brittni Yanez TOP PRECIPITATOR OPERATOR HELPER 02/13/2015 Office visit Heena Dumont MD 01/15/2015 Office visit Brittni Yanez TOP PRECIPITATOR OPERATOR HELPER 01/13/2015 Office visit Heena Dumont MD 01/08/[address] Carol Fowler MD 01/01/2015 Office visit Brittni Yanez TOP PRECIPITATOR OPERATOR HELPER 12/13/2014 Office visit Heena Dumont MD 11/27/2014 Office visit Kaylynn Mendez TOP PRECIPITATOR OPERATOR HELPER 11/14/2014 Office visit Heena Dumont MD 10/18/2014 Office visit Heena Dumont MD 10/17/2014 [facility] Hoskins MD 10/09/2014 Office visit Heena Dumont MD 09/25/2014 Office visit Heena Dumont MD 09/17/2014 Office visit Kaylynn Mendez TOP PRECIPITATOR OPERATOR HELPER 09/04/2014 Office visit Heena Dumont MD 08/28/2014 Office visit Kaylynn Mendez TOP PRECIPITATOR OPERATOR HELPER 08/23/2014 [facility] Hoskins MD 08/01/2014 Office visit Kyalynn Mendez TOP PRECIPITATOR OPERATOR HELPER 07/29/2014 Office visit Heena Dumont MD 07/25/2014 Nurse visit Heena Dumont MD 07/17/2014 Office visit Kaylynn Mendez TOP PRECIPITATOR OPERATOR HELPER 07/11/2014 Office visit Heena Dumont MD 07/01/2014 Office visit Heena Dumont MD 06/25/2014 Office visit Kaylynn Mendez TOP PRECIPITATOR OPERATOR HELPER 06/12/2014 Office visit Kaylynn Mendez TOP PRECIPITATOR OPERATOR HELPER 06/06/2014 Office visit Kaylynn Mendez TOP PRECIPITATOR OPERATOR HELPER 05/27/2014 Office visit Heena Dumont MD 04/20/2014 Office visit Yesica Falcon TOP PRECIPITATOR OPERATOR HELPER 03/29/2014 Office visit Na Jones TOP PRECIPITATOR OPERATOR HELPER 03/15/2014 Office visit Heena Dumont MD 2014 Office visit Heena Dumont MD 2014 [facility] Eliseo Hoskins MD 02/27/2014 Nurse visit Heena Dumont MD 02/13/2014 Office visit Lena El TOP PRECIPITATOR OPERATOR HELPER 02/07/2014 Office visit Heena Dumont MD 02/03/2014 Office visit Na Jones TOP PRECIPITATOR OPERATOR HELPER 01/30/2014 Office visit Kaylynn Mendez TOP PRECIPITATOR OPERATOR HELPER 01/24/2014 Office visit Sundeep Russell TOP PRECIPITATOR OPERATOR HELPER 01/16/2014 Office visit Kaylynn Mendez TOP PRECIPITATOR OPERATOR HELPER 01/10/2014 Nurse visit Kaylynn Mendez TOP PRECIPITATOR OPERATOR HELPER 01/08/2014 Office visit Kaylynn Walker TOP PRECIPITATOR OPERATOR HELPER 12/05/2013 Office visit Kaylynn Mendez TOP PRECIPITATOR OPERATOR HELPER 11/21/2013 Office visit Kaylynn Mendez TOP PRECIPITATOR OPERATOR HELPER 10/23/2013 Office visit Brittni Yanez TOP PRECIPITATOR OPERATOR HELPER 10/17/2013 Nurse visit Heena Dumont MD 10/12/2013 Office visit Kaylynn Mendez TOP PRECIPITATOR OPERATOR HELPER 10/02/2013 Office visit Heena Dumont MD 09/20/2013 Nurse visit Kaylynn Mendez TOP PRECIPITATOR OPERATOR HELPER 09/20/2013 Voided Heena Dumont MD 09/14/2013 Office visit Kaylynn Walker TOP PRECIPITATOR OPERATOR HELPER 09/05/2013 Office visit Sundeep Russell TOP PRECIPITATOR OPERATOR HELPER 09/04/2013 Nurse visit Kaylynn Walker TOP PRECIPITATOR OPERATOR HELPER 08/31/2013 Office visit Kaylynn Walker TOP PRECIPITATOR OPERATOR HELPER 08/23/2013 Office visit Heena Dumont MD 08/10/2013 Office visit Kaylynn Walker TOP PRECIPITATOR OPERATOR HELPER 07/25/2013 Office visit Kaylynn Walker TOP PRECIPITATOR OPERATOR HELPER 07/18/2013 Office visit Kaylynn Walker TOP PRECIPITATOR OPERATOR HELPER 07/12/2013 Office visit Kaylynn Walker TOP PRECIPITATOR OPERATOR HELPER 06/28/2013 Nurse visit Kaylynn Walker TOP PRECIPITATOR OPERATOR HELPER 06/14/2013 Nurse visit Kaylynn Walker TOP PRECIPITATOR OPERATOR HELPER 06/08/2013 Nurse visit Kaylynn Walker TOP PRECIPITATOR OPERATOR HELPER 05/31/2013 Nurse visit Chadd Norris DO 05/18/2013 Office visit Terese Davidson MD 05/16/2013 Office visit Kaylynn Mendez TOP PRECIPITATOR OPERATOR HELPER 05/09/2013 Office visit Kaylynn Mendez TOP PRECIPITATOR OPERATOR HELPER 04/29/2013 [facility] John Hoskins MD 04/25/2013 Nurse visit Kaylynn Walker TOP PRECIPITATOR OPERATOR HELPER 04/17/2013 Office visit Kaylynn Walker TOP PRECIPITATOR OPERATOR HELPER 04/03/2013 Nurse visit Kaylynn Mendez TOP PRECIPITATOR OPERATOR HELPER 04/03/2013 Office visit Terese Davidson MD 03/28/2013 Office visit Sundeep Russell TOP PRECIPITATOR OPERATOR HELPER 03/21/2013 Office visit Kaylynn Mendez TOP PRECIPITATOR OPERATOR HELPER 03/20/2013 Office visit Terese Davidson MD 03/14/2013 Nurse visit Kaylynn Mendez TOP PRECIPITATOR OPERATOR HELPER 03/05/2013 Nurse visit Kaylynn Mendez TOP PRECIPITATOR OPERATOR HELPER 02/19/2013 Office visit Terese Davidson MD 02/16/2013 Nurse visit Kaylynn Mendez TOP PRECIPITATOR OPERATOR HELPER 02/09/2013 Office visit Sundeep Russell TOP PRECIPITATOR OPERATOR HELPER 02/08/2013 Nurse visit Kaylynn Mendez TOP PRECIPITATOR OPERATOR HELPER 02/01/2013 Nurse visit Kaylynn Mendez TOP PRECIPITATOR OPERATOR HELPER 01/26/2013 Nurse visit Sabrina Mendez [place] OPERATOR 01/25/2013 Office visit Kaylynn Mendez TOP PRECIPITATOR OPERATOR HELPER 01/22/2013 Office visit Yoan Castaneda MD 01/18/2013 Nurse visit Kaylynn Walker TOP PRECIPITATOR OPERATOR HELPER 01/11/2013 Nurse visit Kaylynn Walker TOP PRECIPITATOR OPERATOR HELPER 01/05/2013 Nurse visit Kaylynn Mendez TOP PRECIPITATOR OPERATOR HELPER 12/29/2012 Office visit Kaylynn Mendez TOP PRECIPITATOR OPERATOR HELPER 11/27/2012 Office visit Kaylynn Mendez TOP PRECIPITATOR OPERATOR HELPER 11/08/2012 Office visit Odell Tierney MD 11/08/2012 Voided Odell Tierney MD 11/07/2012 Office visit Kaylynn Mendez TOP PRECIPITATOR OPERATOR HELPER 10/31/2012 [facility] John Hoskins MD 10/31/2012 Office visit Kaylynn Mendez TOP PRECIPITATOR OPERATOR HELPER 10/19/2012 Office visit Genoveva Ayala TOP PRECIPITATOR OPERATOR HELPER 10/10/2012 Office visit Kaylynn Mendez TOP PRECIPITATOR OPERATOR HELPER 10/03/2012 Office visit Kaylynn Walker TOP PRECIPITATOR OPERATOR HELPER 09/26/2012 Office visit Kaylynn Walker TOP PRECIPITATOR OPERATOR HELPER 09/06/2012 Office visit Kaylynn Mendez TOP PRECIPITATOR OPERATOR HELPER 09/06/2012 Office visit Odell Tierney MD 08/31/2012 Voided Kaylynn Mendez TOP PRECIPITATOR OPERATOR HELPER 07/28/2012 Office visit Kaylynn Mendez TOP PRECIPITATOR OPERATOR HELPER 07/27/2012 Office visit David Joyner DO 07/20/2012 [facility] David Joyner DO 07/13/2012 [facility] David Joyner DO 07/11/2012 Office visit Kaylynn Mendez TOP PRECIPITATOR OPERATOR HELPER 06/27/2012 Hospital Odell Tierney MD 06/21/2012 Office visit David Joyner DO 06/21/2012 Office visit Odell Tierney MD 06/20/2012 Office visit Brittni Yanez TOP PRECIPITATOR OPERATOR HELPER 06/06/2012 Office visit Odell Tierney MD 05/03/2012 Office visit Kaylynn Mendez TOP PRECIPITATOR OPERATOR HELPER 04/28/2012 Office visit Brittni Yanez TOP PRECIPITATOR OPERATOR HELPER 04/11/2012 Office visit Kaylynn Mendez TOP PRECIPITATOR OPERATOR HELPER 04/06/2012 [facility] John Hoskins MD 03/30/2012 Office visit Kaylynn Mendez TOP PRECIPITATOR OPERATOR HELPER 03/15/2012 Office visit Kaylynn Mendez TOP PRECIPITATOR OPERATOR HELPER 03/15/2012 Office visit Odell Tierney MD 02/09/2012 Office visit Kaylynn Mendez TOP PRECIPITATOR OPERATOR HELPER 12/23/2011 Office visit Kaylynn Mendez TOP PRECIPITATOR OPERATOR HELPER 11/02/2011 Office visit Kaylynn Mendez TOP PRECIPITATOR OPERATOR HELPER 10/14/2011 Office visit Kaylynn Mendez TOP PRECIPITATOR OPERATOR HELPER 09/27/2011 Office visit Kaylynn Mendez TOP PRECIPITATOR OPERATOR HELPER 08/19/2011 [facility] John Hoskins MD 08/18/2011 [facility] John Hoskins MD 08/18/2011 Office visit Kaylynn Andrea TOP PRECIPITATOR OPERATOR HELPER 08/02/2011 Office visit Kaylynn Andrea TOP PRECIPITATOR OPERATOR HELPER 07/08/2011 Office visit Kaylynn Mendez TOP PRECIPITATOR OPERATOR HELPER 07/05/2011 Office visit Odell Tierney MD 06/15/2011 Office visit Kaylynn Mendez TOP PRECIPITATOR OPERATOR HELPER 05/14/2011 Office visit Kaylynn Mendez TOP PRECIPITATOR OPERATOR HELPER 05/11/2011 Office visit Odell Tierney MD 04/28/2011 Office visit Kaylynn Mendez TOP PRECIPITATOR OPERATOR HELPER 03/02/2011 Office visit Chadd Norris DO [...]
--- OUTSIDE RECORDS SUMMARY | 2018-05-09 21:43 | XMS REPORT ---
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 Role Phone Heena Dumont PCP Allergies [...] 08/27/2014 use as directed for 99 days [place] oral tablet 5-325 mg 06/17/2014 06/27/2014 take [...] the evening changed to crestor Flonase Nasal [place], Suspension 50 mcg/actuation 06/20/2012 10/31/2012 inhale 1 [...] 0.60 mg/dLCALCIUM 10.90 mg/ dLeGFR >60 mL/min/1.73 [id number] 45.0 U/L 08/31/2013 10:54 AM GLUCOSE 255.0 [...] 0.40 mg/ dLCALCIUM 10.60 mg/dLeGFR >60 mL/min/1.73 [id number] 369.0 mg/ dLCHOLESTEROL 153.0 mg/dLHDL 26.0 mg/dLLDL [...] BILI 0.30 mg/dLCALCIUM 10.0 mg/dLeGFR >60 mL/min/1.73 [id number] YELLOW APPEARANCE CLEAR SPEC GRAV 1.010 pH [...] 141 Influenza 04/24/2014 sanofi pasteur PMC Fluzone [id number] Intramuscular Left Upper Arm 02/27/2014 01/15/2014 141 [...] 2014 4:01PM Tendinopathy Nov 14 2014 4:01PM Payers Insurance Name Company Name Plan Name Plan Number Policy Number Policy Group Number Start Date Medicare Part A Medicare Part A [id number] N/A [facility] - [facility] - Community Plan [facility] RHC Comm [id number] N/A [place] [employer] - RHC [id number] May [facility] Comm Plan of [id number] Wednesday, 2012 Medicare Part B Medicare [place] [id number] Monday, 2000 [place] Medical Assistance [facility] Medical Assistance Prog [id number] Tuesday, 2009 History of Encounters Visit Date Visit Type Provider 11/14/2014 Office visit Heena Dumont MD 10/18/2014 Office visit Heena Dumont MD 10/09/2014 Office visit Heena Dumont MD 09/25/2014 Office visit Heena Dumont MD 09/17/2014 Office visit Kaylynn Mendez BOBBIN MARKER 09/04/2014 Office visit Heena Dumont MD 08/28/2014 Office visit Kaylynn Mendze BOBBIN MARKER 08/01/2014 Office visit Kaylynn Mendez BOBBIN MARKER 07/29/2014 Office visit Heena Dumont MD 07/25/2014 Nurse visit Heena Dumont MD 07/17/2014 Office visit Kaylynn Mendez BOBBIN MARKER 07/11/2014 Office visit Heena Dumont MD 07/01/2014 Office visit Heena Dumont MD 06/25/2014 Office visit Kaylynn Mendez BOBBIN MARKER 06/12/2014 Office visit Kaylynn Mendez BOBBIN MARKER 06/06/2014 Office visit Kaylynn Mendez BOBBIN MARKER 05/27/2014 Office visit Heena Dumont MD 04/20/2014 Office visit Yesica Falcon BOBBIN MARKER 03/29/2014 Office visit Na Jones BOBBIN MARKER 03/15/2014 Office visit Heena Dumont MD 2014 Office visit Heena Dumont MD 2014 [facility] John Hoskins MD 02/27/2014 Nurse visit Heena Dumont MD 02/13/2014 Office visit Lena El BOBBIN MARKER 02/07/2014 Office visit Heena Dumont MD 02/03/2014 Office visit Na Jones BOBBIN MARKER 01/30/2014 Office visit Kaylynn Walker BOBBIN MARKER 01/24/2014 Office visit Sundeep Russell BOBBIN MARKER 01/16/2014 Office visit Kaylynn Walker BOBBIN MARKER 01/10/2014 Nurse visit Kaylynn Walker BOBBIN MARKER 01/08/2014 Office visit Kaylynn Walker BOBBIN MARKER 12/05/2013 Office visit Kaylynn Walker BOBBIN MARKER 11/21/2013 Office visit Kaylynn Walker BOBBIN MARKER 10/23/2013 Office visit Brittni Yanez BOBBIN MARKER 10/17/2013 Nurse visit Heena Dumont MD 10/12/2013 Office visit Kaylynn Walker BOBBIN MARKER 10/02/2013 Office visit Heena Dumont MD 09/20/2013 Voided Heena Dumont MD 09/20/2013 Nurse visit Kaylynn Walker BOBBIN MARKER 09/14/2013 Office visit Kaylynn Walker BOBBIN MARKER 09/05/2013 Office visit Sundeep Russell BOBBIN MARKER 09/04/2013 Nurse visit Kaylynn Walker BOBBIN MARKER 08/31/2013 Office visit Kaylynn Walker BOBBIN MARKER 08/23/2013 Office visit Heena Dumont MD 08/10/2013 Office visit Kaylynn Walker BOBBIN MARKER 07/25/2013 Office visit Kaylynn Walker BOBBIN MARKER 07/18/2013 Office visit Kaylynn Walker BOBBIN MARKER 07/12/2013 Office visit Kaylynn Walker BOBBIN MARKER 06/28/2013 Nurse visit Kaylynn Walker BOBBIN MARKER 06/14/2013 Nurse visit Kaylynn Walker BOBBIN MARKER 06/08/2013 Nurse visit Kaylynn Walker BOBBIN MARKER 05/31/2013 Nurse visit Chadd Norris DO 05/18/2013 Office visit Terese Davidson MD 05/16/2013 Office visit Kaylynn Mendez BOBBIN MARKER 05/09/2013 Office visit Kaylynn Walker BOBBIN MARKER 04/29/2013 [facility] John Hoskins MD 04/25/2013 Nurse visit Kaylynn Walker BOBBIN MARKER 04/17/2013 Office visit Kaylynn Walker BOBBIN MARKER 04/03/2013 Office visit Terese Davidson MD 04/03/2013 Nurse visit Kaylynn Mendez BOBBIN MARKER 03/28/2013 Office visit Sundeep Russell BOBBIN MARKER 03/21/2013 Office visit Kaylynn Mendez BOBBIN MARKER 03/20/2013 Office visit Terese Davidson MD 03/14/2013 Nurse visit Kaylynn Mendez BOBBIN MARKER 03/05/2013 Nurse visit Kaylynn Andrea BOBBIN MARKER 02/19/2013 Office visit Terese Davidson MD 02/16/2013 Nurse visit Kaylynn Andrea BOBBIN MARKER 02/09/2013 Office visit Sundeep Russell BOBBIN MARKER 02/08/2013 Nurse visit Kaylynn Walker BOBBIN MARKER 02/01/2013 Nurse visit Kaylynn Walker BOBBIN MARKER 01/26/2013 Nurse visit Sabrina Andrea POWER CUTTING MACHINE OPERATOR 01/25/2013 Office visit Kaylynn Mendez BOBBIN MARKER 01/22/2013 Office visit Yoan Castaneda MD 01/18/2013 Nurse visit Kaylynn Walker BOBBIN MARKER 01/11/2013 Nurse visit Kaylynn Walker BOBBIN MARKER 01/05/2013 Nurse visit Kaylynn Walker BOBBIN MARKER 12/29/2012 Office visit Kaylynn Walker BOBBIN MARKER 11/27/2012 Office visit Kaylynn Mendez BOBBIN MARKER 11/08/2012 Voided Odell Tierney MD 11/08/2012 Office visit Odell Tierney MD 11/07/2012 Office visit Kaylynn Mendez BOBBIN MARKER 10/31/2012 Office visit Kaylynn Mendez BOBBIN MARKER 10/31/2012 [facility] John Hoskins MD 10/19/2012 Office visit Genoveva Ayala BOBBIN MARKER 10/10/2012 Office visit Kaylynn Mendez BOBBIN MARKER 10/03/2012 Office visit Kaylynn Mendez BOBBIN MARKER 09/26/2012 Office visit Kaylynn Mendez BOBBIN MARKER 09/06/2012 Office visit Odell Tierney MD 09/06/2012 Office visit Kaylynn Mendez BOBBIN MARKER 08/31/2012 Voided Kaylynn Mendez BOBBIN MARKER 07/28/2012 Office visit Kaylynn Mendez BOBBIN MARKER 07/27/2012 Office visit David Joyner DO 07/20/2012 [facility] David Joyner DO 07/13/2012 [facility] David Joyner DO 07/11/2012 Office visit Kaylynn Mendez BOBBIN MARKER 06/27/2012 [facility] Odell Tierney MD 06/21/2012 Office visit Odell Tierney MD 06/21/2012 Office visit David Joyner DO 06/20/2012 Office visit Brittni Yanez BOBBIN MARKER 06/06/2012 Office visit Odell Tierney MD 05/03/2012 Office visit Kaylynn Mendez BOBBIN MARKER 04/28/2012 Office visit Brittni Yanez BOBBIN MARKER 04/11/2012 Office visit Kaylynn Mendez BOBBIN MARKER 04/06/2012 [facility] John Hoskins MD 03/30/2012 Office visit Kaylynn Mendez BOBBIN MARKER 03/15/2012 Office visit Oedll Tierney MD 03/15/2012 Office visit Kaylynn Mendez BOBBIN MARKER 02/09/2012 Office visit Kaylynn Mendez BOBBIN MARKER 12/23/2011 Office visit Kaylynn Mendez BOBBIN MARKER 11/02/2011 Office visit Kaylynn Mendez BOBBIN MARKER 10/14/2011 Office visit Kaylynn Mendez BOBBIN MARKER 09/27/2011 Office visit Kaylynn Mendez BOBBIN MARKER 08/19/2011 [facility] John Hoskins MD 08/18/2011 Office visit Kaylynn Mendez BOBBIN MARKER 08/18/2011 [facility] John Hoskins MD 08/02/2011 Office visit Kaylynn Mendez BOBBIN MARKER 07/08/2011 Office visit Kaylynn Mendez BOBBIN MARKER 07/05/2011 Office visit Odell Tierney MD 06/15/2011 Office visit Kaylynn Mendez BOBBIN MARKER 05/14/2011 Office visit Kaylynn Mendez BOBBIN MARKER 05/11/2011 Office visit Odell Tierney MD 04/28/2011 Office visit Kaylynn Mendez BOBBIN MARKER 03/02/2011 Office visit Chadd Norris DO [...] Odell Tierney MD 11/26/2009 Office visit Yoan Castandea MD 11/17/2009 Office visit Odell Tierney MD 11/10/2009 Office visit Chadd Norris DO
--- OUTSIDE RECORDS SUMMARY | 2018-05-09 21:49 | XMS REPORT ---
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 bckgznlz-wmheyruzi-GJ 3.5-10,000-1 mg/mL-unit/mL-% otic drops,suspension 201607/23/2016 instill 4 [...] HC BMI BSA BMI Percentile O2 Sat(%) 12/02/2016 2:07:00 PM 130 mmHg 80 mmHg [...] Decadron 1 mg [facility]#85420371864 (Jr) Reviewed 04/28/2011 12:00 AM Depo-Medrol 80 mg ND#[id number]-Wdforjvr Reviewed 09/02/2015 12:00 AM Toradol 60 Mg ND#3784-2836-79 Reviewed 09/02/2015 12:00 AM Phenergan, Up to 50 Mg RHC Medicaid Reviewed 09/16/2015 12:00 AM Toradol 60 Mg ND#2943-9181-57 Reviewed 09/16/2015 12:00 AM Phenergan Up to 50 mg RHC Medicare Reviewed 05/11/2011 12:00 AM N BLOCK INJ OCCIPITAL Reviewed 05/11/2011 12:00 AM Kenalog Bg-[address]-20 ANNA Reviewed 11/13/2015 12:00 AM ASSAY OF [...] INJ SC/IM Reviewed 07/08/2011 12:00 AM Toradol,15mg ND#[id number], [place] Reviewed 07/08/2011 12:00 AM Phenergan 50 Mg Im Nd 5540-0387-04 [place] Reviewed 01/21/2016 12:00 AM ECG MONIT/REPRT UP TO 48 HRS Returned 08/02/2011 12:00 AM THER/PROPH/DIAG INJ SC/IM Reviewed 08/02/2011 12:00 AM Decadron 1 mg [facility]#[id number] (Jr) Reviewed 08/02/2011 12:00 AM Depo-Medrol 80 mg [facility]#[id number]-Vtqmjjow Reviewed 03/05/2016 12:00 AM COMPLETE CBC W/AUTO DIFF WBC Reviewed 03/05/2016 12:00 AM STREP A ASSAY W/OPTIC Reviewed 03/05/2016 12:00 AM C-REACTIVE PROTEIN Reviewed 03/18/2016 12:00 AM [facility] MED[facility] - flu vaccine administration Reviewed 03/18/2016 [...] Depo-Medrol 80 mg [facility]#45402994494-Nelaxgca Reviewed 09/27/2011 12:00 AM Depo-Medrol 40 mg [facility]#[id number] Reviewed 07/06/2016 12:00 AM CHEST X-RAY 4/> [...] Reviewed 12/23/2011 12:00 AM Decadron 1 mg N[facility]#[id number] (Jr) Reviewed 12/23/2011 12:00 AM Depo-Medrol 80 mg N[facility]#[id number]-Dhhigrpy Reviewed 11/02/2016 11:45 AM URINALYSIS AUTO W/O [...] Reviewed 02/09/2012 12:00 AM Decadron 1 mg [facility]#97737063876 (Jr) Reviewed 02/09/2012 12:00 AM Depo-Medrol 80 mg NDC#[id number]-Hkdnefwx Reviewed 03/15/2012 12:00 AM N BLOCK INJ OCCIPITAL Reviewed 03/15/2012 12:00 AM Kenalog Wu-[address]-20 ANNA Reviewed 04/11/2012 12:00 AM COMPLETE CBC W/AUTO DIFF WBC Reviewed 04/11/2012 12:00 AM COMPREHEN METABOLIC PANEL Reviewed 04/11/2012 12:00 AM LIPID PANEL Reviewed 04/11/2012 12:00 AM ASSAY THYROID STIM HORMONE Reviewed 04/11/2012 12:00 AM DESTRUCT PREMALG LES 2-14 Reviewed 06/20/2012 12:00 AM THER/PROPH/DIAG INJ SC/IM Reviewed 06/20/2012 12:00 AM Decadron, Per 1 Mg ND# [address]-72 Reviewed 06/20/2012 12:00 AM Depo-Medrol, Per 80 Mg [facility]#8985-3255-44 Reviewed 09/06/2012 12:00 AM N BLOCK INJ OCCIPITAL Reviewed 09/06/2012 12:00 AM Kenalog Zo-[address]-20 ANNA Reviewed 09/06/2012 12:00 AM X-RAY EXAM RIBS UNI 2 VIEWS Reviewed 09/26/2012 12:00 AM THER/PROPH/DIAG INJ SC/IM Reviewed 09/26/2012 12:00 AM Decadron, Per 1 Mg [facility]# [address]-99 Reviewed 09/26/2012 12:00 AM Depo-Medrol, Per 80 Mg [facility]#0212-8768-14 Reviewed 10/03/2012 12:00 AM URINALYSIS AUTO W/O SCOPE Reviewed 10/03/2012 12:00 AM THER/PROPH/DIAG INJ SC/IM Reviewed 10/03/2012 12:00 AM Toradol 60 Mg [facility]#9126-3048-39 Reviewed 10/03/2012 12:00 AM Phenergan, 25Mg [facility]#5464-3094-46 Reviewed 10/19/2012 12:00 AM N BLOCK INJ OCCIPITAL Reviewed 10/19/2012 12:00 AM Kenalog, Per 10 Mg [facility]#1897-3555-10 Reviewed 10/19/2012 12:00 AM Toradol 30 Mg [facility]#3262-2849-77 Reviewed 10/19/2012 12:00 AM THER/PROPH/DIAG INJ SC/IM Reviewed 10/31/2012 12:00 AM COMPLETE CBC W/AUTO DIFF WBC Reviewed 10/31/2012 12:00 AM COMPREHEN METABOLIC PANEL Reviewed 10/31/2012 12:00 AM LIPID PANEL Reviewed 10/31/2012 12:00 AM ELECTROCARDIOGRAM COMPLETE Reviewed 11/03/2012 12:[address] THORAX W/O & W/DYE Reviewed 11/08/2012 12:00 AM N BLOCK INJ OCCIPITAL Reviewed 11/08/2012 12:00 AM Kenalog Wt-[address]-20 ANNA Reviewed 11/27/2012 12:00 AM COMPLETE CBC [...] 1 Mg [facility]# [address]-03 Reviewed 01/25/2013 12:00 AM Depo-Medrol, Per 80 Mg [facility]#8577-2939-75 Reviewed 01/26/2013 12:00 AM IMMUNOTHERAPY ONE INJECTION [...] 1 Mg [facility]# [address]-08 Reviewed 05/16/2013 12:00 AM Depo-Medrol, Per 80 Mg [facility]#4156-6749-07 Reviewed 05/31/2013 12:00 AM IMMUNOTHERAPY INJECTIONS Reviewed 06/08/2013 12:00 AM IMMUNOTHERAPY INJECTIONS Reviewed 06/14/2013 12:00 AM IMMUNOTHERAPY INJECTIONS Reviewed 06/28/2013 12:00 AM IMMUNOTHERAPY INJECTIONS Reviewed 07/12/2013 12:00 AM X-RAY EXAM RIBS UNI 2 VIEWS Reviewed 07/18/2013 12:00 AM Toradol 60 Mg [facility]#9945-7317-79 Reviewed 07/18/2013 12:00 AM THER/PROPH/DIAG INJ SC/IM [...] 1 Mg [facility]# [address]-56 Reviewed 09/14/2013 12:00 AM Depo-Medrol, Per 80 Mg [facility]#8423-7930-85 Reviewed 09/20/2013 12:00 AM IMMUNOTHERAPY INJECTIONS Reviewed [...] INJ OCCIPITAL Reviewed 12/10/2009 12:00 AM Kenalog Vj-[address]-20 ANNA Reviewed 12/16/2009 12:00 AM HIV-1ANTIBODY Reviewed 12/16/2009 12:00 AM COMPLETE CBC W/AUTO DIFF WBC Reviewed 12/16/2009 12:00 AM METABOLIC PANEL TOTAL CA Reviewed 12/16/2009 12:00 AM Type and screen Reviewed 12/16/2009 12:00 AM PROTHROMBIN TIME Reviewed 12/16/2009 12:00 AM THROMBOPLASTIN TIME PARTIAL Reviewed 03/18/2010 12:00 AM DRAIN/INJ JOINT/BURSA W/O US Reviewed 03/18/2010 12:00 AM Kenalog Md-[address]-20 ANNA Reviewed 11/21/2013 12:00 AM RADEX HAND MINIMUM 3 VIEWS Reviewed 06/03/2010 12:00 AM INJ TRIGGER POINT 1/2 MUSCL Reviewed 06/03/2010 12:00 AM Kenalog per 10Mg Im-Nd#[address]-66(Niall) Reviewed 12/05/2013 12:00 AM COMPLETE CBC W/AUTO [...] Reviewed 07/23/2010 12:00 AM Kenalog per 10Mg Im-Nd#[address]-46(Niall) Reviewed 2014 12:00 AM COMPLETE CBC W/AUTO [...] INJ OCCIPITAL Reviewed 10/01/2010 12:00 AM Kenalog Ma-[address]-20 ANNA Reviewed 07/25/2014 12:00 AM THER/PROPH/DIAG INJ [...] <0.80 RMSF , IgG, EIA Negative [facility] Spotted Fever,IgM 0.51 E. [...] 141 Influenza 04/24/2014 sanofi pasteur PMC Fluzone [id number] Intramuscular Left Upper Arm 02/27/2014 01/15/2014 141 Influenza 02/13/2015 sanofi pasteur PMC Fluzone [id number] Intramuscular Left Deltoid 02/13/2015 01/03/2015 140 Tdap 06/06/2015 [employer] SKB BOOSTRIX [id number] Intramuscular Left Deltoid 06/06/2015 07/23/2014 115 Influenza 03/18/2016 sanofi pasteur PMC Fluzone [id number] Intramuscular Left Deltoid 03/17/2016 01/03/2015 141 History [...] Fe 9 2011 1:38PM Heart Sound Abnormality Jul [...] Cervical spinal stenosis Feb 2016 3:50PM Lumbago b 2016 3:25PM Stenosis, [...] 2:15PM Abdominal pain Dec 02 2016 2:54PM Payers Insurance Name Company Name Plan Name Plan Number Policy Number Policy Group Number Start Date Medicare RHC Medicare RHC [id number] N/A [facility] - RHC - Community Plan [facility] RHC Comm [id number] N/A Medicare Part A Medicare - Lab/Xray [id number] N/A Medicare Part B Medicare Of [place] [id number] Monday, February 28, 2000 [place] [employer] [place] [employer] [place] [id number] Tuesday, November 10, 2009 Medicare Part A Medicare Part A [id number] N/A [place] [employer] - RHC [place] [employer] - RHC [id number] [facility] Comm Plan of [id number] Wednesday, May 30, 2012 History of Encounters Visit Date Visit Type Provider 12/02/2016 Office visit Heena Dumont MD 11/23/2016 Office visit Kaylynn Mendez CLOUD ENGAGEMENT PARTNER 11/17/2016 Office visit Kaylynn Mendez CLOUD ENGAGEMENT PARTNER 11/05/2016 Office visit Riccardo Cardoza MD 11/02/2016 Office visit Heena Dumnot MD 10/06/2016 Office visit Kaylynn Mendez CLOUD ENGAGEMENT PARTNER 09/22/2016 Office visit Heena Dumont MD 09/09/2016 Office visit Kaylynn Mendez APRN 08/27/2016 Office visit Riccardo Cardoza MD 08/26/2016 Office visit Heena Dumont MD 07/09/2016 Office visit Riccardo Cardoza MD 07/06/2016 Office visit Heena Dumont MD 06/18/2016 Office visit Kaylynn Mendez APRN 06/07/2016 Office visit Sundeep Russell APRN 06/04/2016 Office visit Heena Dumont MD 05/13/2016 Office visit Heena Dumont MD 05/03/2016 Office visit Heena Dumont MD 04/26/2016 Office visit Kaylynn Mendez CLOUD ENGAGEMENT PARTNER 04/14/2016 Office visit Heena Dumont MD 04/13/2016 Office visit Kaylynn Mendez CLOUD ENGAGEMENT PARTNER 04/02/2016 Office visit Lena El CLOUD ENGAGEMENT PARTNER 04/02/2016 Office visit Heena Dumont MD 03/26/2016 Office visit Yesica Falcon CLOUD ENGAGEMENT PARTNER 03/17/2016 Office visit Heena Dumont MD 03/05/2016 Office visit Kaylynn Mendez CLOUD ENGAGEMENT PARTNER 02/16/2016 Office visit Heean Dumont MD 02/14/2016 Office visit Na Jones CLOUD ENGAGEMENT PARTNER 01/16/2016 Office visit Heena Dumont MD 12/16/2015 Office visit Heena Dumont MD 11/24/2015 Office visit Kaylynn Mendez CLOUD ENGAGEMENT PARTNER 11/18/2015 Office visit Heena Dumont MD 11/03/2015 Office visit Sundeep Russell CLOUD ENGAGEMENT PARTNER 10/20/2015 Office visit Kaylynn Mendez CLOUD ENGAGEMENT PARTNER 09/23/2015 Office visit Kaylynn Mendez CLOUD ENGAGEMENT PARTNER 09/16/[address] Pepe Figueroa MD 09/02/2015 Office visit Kaylynn Mendez CLOUD ENGAGEMENT PARTNER 09/01/2015 Office visit Kaylynn Mendez CLOUD ENGAGEMENT PARTNER 07/30/2015 Office visit Heena Dumont MD 07/15/2015 Office visit Kaylynn Mendez CLOUD ENGAGEMENT PARTNER 07/04/2015 Office visit Heena Dumont MD 06/06/2015 Office visit Heena Dumont MD 06/06/2015 Office visit Kaylynn Mendez CLOUD ENGAGEMENT PARTNER 06/02/2015 Office visit Kaylynn Mendez CLOUD ENGAGEMENT PARTNER 05/26/2015 Office visit Kaylynn Mendez CLOUD ENGAGEMENT PARTNER 05/20/2015 Office visit Kaylynn Mendez CLOUD ENGAGEMENT PARTNER 05/08/2015 Office visit Heena Dumont MD 05/06/2015 Office visit Kaylynn Mendez CLOUD ENGAGEMENT PARTNER 04/29/2015 Office visit Kaylynn Mendez CLOUD ENGAGEMENT PARTNER 03/27/2015 Voided Brittni Yanez CLOUD ENGAGEMENT PARTNER 03/21/2015 Office visit Heena Dumont MD 03/12/2015 Office visit Kaylynn Mendez CLOUD ENGAGEMENT PARTNER 02/26/2015 Office visit Brittni Yanez CLOUD ENGAGEMENT PARTNER 02/13/2015 Office visit Heena Dumont MD 01/15/2015 Office visit Brittni Yanez CLOUD ENGAGEMENT PARTNER 01/13/2015 Office visit Heena Dumont MD 01/08/[address] Carol Fowler MD 01/01/2015 Office visit Britnti Yanez CLOUD ENGAGEMENT PARTNER 12/13/2014 Office visit Heena Dumont MD 11/27/2014 Office visit Kaylynn Mendez CLOUD ENGAGEMENT PARTNER 11/14/2014 Office visit Heena Dumont MD 10/18/2014 Office visit Heena Dumont MD 10/17/2014 [facility] Eliseo Hoskins MD 10/09/2014 Office visit Heena Dumont MD 09/25/2014 Office visit Heena Dumont MD 09/17/2014 Office visit Kaylynn Mendez CLOUD ENGAGEMENT PARTNER 09/04/2014 Office visit Heena Dumont MD 08/28/2014 Office visit Kaylynn Mendez CLOUD ENGAGEMENT PARTNER 08/23/2014 [facility] Eliseo Hoskins MD 08/01/2014 Office visit Kaylynn Mendez CLOUD ENGAGEMENT PARTNER 07/29/2014 Office visit Heena Dumont MD 07/25/2014 Nurse visit Heena Dumont MD 07/17/2014 Office visit Kaylynn Mendez CLOUD ENGAGEMENT PARTNER 07/11/2014 Office visit Heena Dumont MD 07/01/2014 Office visit Heena Dumont MD 06/25/2014 Office visit Kaylynn Mendez CLOUD ENGAGEMENT PARTNER 06/12/2014 Office visit Kaylynn Mendez CLOUD ENGAGEMENT PARTNER 06/06/2014 Office visit Kaylynn Mendez CLOUD ENGAGEMENT PARTNER 05/27/2014 Office visit Heena Dumont MD 04/20/2014 Office visit Yesica Falcon CLOUD ENGAGEMENT PARTNER 03/29/2014 Office visit Na Jones CLOUD ENGAGEMENT PARTNER 03/15/2014 Office visit Heena Dumont MD 2014 Office visit Heena Dumont MD 2014 [facility] John Hoskins MD 02/27/2014 Nurse visit Heena Dumont MD 02/13/2014 Office visit Lena El CLOUD ENGAGEMENT PARTNER 02/07/2014 Office visit Heena Dumont MD 02/03/2014 Office visit Na Jones CLOUD ENGAGEMENT PARTNER 01/30/2014 Office visit Kaylynn Mendez CLOUD ENGAGEMENT PARTNER 01/24/2014 Office visit Sundeep Russell CLOUD ENGAGEMENT PARTNER 01/16/2014 Office visit Kaylynn Mendez CLOUD ENGAGEMENT PARTNER 01/10/2014 Nurse visit Kaylynn Mendez CLOUD ENGAGEMENT PARTNER 01/08/2014 Office visit Kaylynn Mendez CLOUD ENGAGEMENT PARTNER 12/05/2013 Office visit Kaylynn Mendez CLOUD ENGAGEMENT PARTNER 11/21/2013 Office visit Kaylynn Mendez CLOUD ENGAGEMENT PARTNER 10/23/2013 Office visit Brittni Yanez CLOUD ENGAGEMENT PARTNER 10/17/2013 Nurse visit Heena Dumont MD 10/12/2013 Office visit Kaylynn Mendez CLOUD ENGAGEMENT PARTNER 10/02/2013 Office visit Heena Dumont MD 09/20/2013 Nurse visit Kaylynn Walker CLOUD ENGAGEMENT PARTNER 09/20/2013 Voided Heena Dumont MD 09/14/2013 Office visit Kaylynn Walker CLOUD ENGAGEMENT PARTNER 09/05/2013 Office visit Sundeep Russell CLOUD ENGAGEMENT PARTNER 09/04/2013 Nurse visit Kaylynn Walker CLOUD ENGAGEMENT PARTNER 08/31/2013 Office visit Kaylynn Walker CLOUD ENGAGEMENT PARTNER 08/23/2013 Office visit Heena Dumont MD 08/10/2013 Office visit Kaylynn Walker CLOUD ENGAGEMENT PARTNER 07/25/2013 Office visit Kaylynn Walker CLOUD ENGAGEMENT PARTNER 07/18/2013 Office visit Kaylynn Walker CLOUD ENGAGEMENT PARTNER 07/12/2013 Office visit Kaylynn Walker CLOUD ENGAGEMENT PARTNER 06/28/2013 Nurse visit Kaylynn Walker CLOUD ENGAGEMENT PARTNER 06/14/2013 Nurse visit Kaylynn Walker CLOUD ENGAGEMENT PARTNER 06/08/2013 Nurse visit Kaylynn Walker CLOUD ENGAGEMENT PARTNER 05/31/2013 Nurse visit Chadd Norris DO 05/18/2013 Office visit Terese Davidson MD 05/16/2013 Office visit Kaylynn Walker CLOUD ENGAGEMENT PARTNER 05/09/2013 Office visit Kaylynn Mendez CLOUD ENGAGEMENT PARTNER 04/29/2013 [facility] Eliseo Hoskins MD 04/25/2013 Nurse visit Kaylynn Walker CLOUD ENGAGEMENT PARTNER 04/17/2013 Office visit Kaylynn Walker CLOUD ENGAGEMENT PARTNER 04/03/2013 Nurse visit Kaylynn Walker CLOUD ENGAGEMENT PARTNER 04/03/2013 Office visit Terese Davidson MD 03/28/2013 Office visit Sundeep Russell CLOUD ENGAGEMENT PARTNER 03/21/2013 Office visit Kaylynn Mendez CLOUD ENGAGEMENT PARTNER 03/20/2013 Office visit Terese Davidson MD 03/14/2013 Nurse visit Kaylynn Walker CLOUD ENGAGEMENT PARTNER 03/05/2013 Nurse visit Kaylynn Mendez CLOUD ENGAGEMENT PARTNER 02/19/2013 Office visit Terese Davidson MD 02/16/2013 Nurse visit Kaylynn Mendez CLOUD ENGAGEMENT PARTNER 02/09/2013 Office visit Sundeep Russell CLOUD ENGAGEMENT PARTNER 02/08/2013 Nurse visit Kaylynn Walker CLOUD ENGAGEMENT PARTNER 02/01/2013 Nurse visit Kaylynn Walker CLOUD ENGAGEMENT PARTNER 01/26/2013 Nurse visit Sabrina Mendez STEAM TABLE WORKER 01/25/2013 Office visit Kaylynn Walker CLOUD ENGAGEMENT PARTNER 01/22/2013 Office visit Yoan Castaneda MD 01/18/2013 Nurse visit Kaylynn Walker CLOUD ENGAGEMENT PARTNER 01/11/2013 Nurse visit Kaylynn Walker CLOUD ENGAGEMENT PARTNER 01/05/2013 Nurse visit Kaylynn Walker CLOUD ENGAGEMENT PARTNER 12/29/2012 Office visit Kaylynn Walker CLOUD ENGAGEMENT PARTNER 11/27/2012 Office visit Kaylynn Mendez CLOUD ENGAGEMENT PARTNER 11/08/2012 Office visit Odell Tierney MD 11/08/2012 Voided Odell Tierney MD 11/07/2012 Office visit Kaylynn Walker CLOUD ENGAGEMENT PARTNER 10/31/2012 [facility] John Hoskins MD 10/31/2012 Office visit Kaylynn Walker CLOUD ENGAGEMENT PARTNER 10/19/2012 Office visit Genoveva Ayala CLOUD ENGAGEMENT PARTNER 10/10/2012 Office visit Kaylynn Walker CLOUD ENGAGEMENT PARTNER 10/03/2012 Office visit Kaylynn Walker CLOUD ENGAGEMENT PARTNER 09/26/2012 Office visit Kaylynn Walker CLOUD ENGAGEMENT PARTNER 09/06/2012 Office visit Kaylynn Andrea CLOUD ENGAGEMENT PARTNER 09/06/2012 Office visit Odell Tierney MD 08/31/2012 Voided Kaylynn Mendez CLOUD ENGAGEMENT PARTNER 07/28/2012 Office visit Kaylynn Walker CLOUD ENGAGEMENT PARTNER 07/27/2012 Office visit David Joyner DO 07/20/2012 [facility] David Joyner DO 07/13/2012 Hospital David Joyner DO 07/11/2012 Office visit Kaylynn Mendez CLOUD ENGAGEMENT PARTNER 06/27/2012 [facility] Odell Tierney MD 06/21/2012 Office visit David Joyner DO 06/21/2012 Office visit Odell Tierney MD 06/20/2012 Office visit Brittni Yanez CLOUD ENGAGEMENT PARTNER 06/06/2012 Office visit Odell Tierney MD 05/03/2012 Office visit Kaylynn Mendez CLOUD ENGAGEMENT PARTNER 04/28/2012 Office visit Brittni Yanez CLOUD ENGAGEMENT PARTNER 04/11/2012 Office visit Kaylynn Mendez CLOUD ENGAGEMENT PARTNER 04/06/2012 [facility] John Hoskins MD 03/30/2012 Office visit Kaylynn Mendez CLOUD ENGAGEMENT PARTNER 03/15/2012 Office visit Kaylynn Mendez CLOUD ENGAGEMENT PARTNER 03/15/2012 Office visit Odell Tierney MD 02/09/2012 Office visit Kaylynn Mendez CLOUD ENGAGEMENT PARTNER 12/23/2011 Office visit Kaylynn Mendez CLOUD ENGAGEMENT PARTNER 11/02/2011 Office visit Kaylynn Walker CLOUD ENGAGEMENT PARTNER 10/14/2011 Office visit Kaylynn Walker CLOUD ENGAGEMENT PARTNER 09/27/2011 Office visit Kaylynn Walker CLOUD ENGAGEMENT PARTNER 08/19/2011 Hospital John Hoskins MD 08/18/2011 Hospital John oHskins MD 08/18/2011 Office visit Kaylynn Walker CLOUD ENGAGEMENT PARTNER 08/02/2011 Office visit Kaylynn Walker CLOUD ENGAGEMENT PARTNER 07/08/2011 Office visit Kaylynn Mendez CLOUD ENGAGEMENT PARTNER 07/05/2011 Office visit Odell Tierney MD 06/15/2011 Office visit Kaylynn Mendez CLOUD ENGAGEMENT PARTNER 05/14/2011 Office visit Kaylynn Mendez CLOUD ENGAGEMENT PARTNER 05/11/2011 Office visit Odell Tierney MD 04/28/2011 Office visit Kaylynn Mendez CLOUD ENGAGEMENT PARTNER 03/02/2011 Office visit Chadd Norris DO 02/17/2011 [...]
--- OUTSIDE RECORDS SUMMARY | 2018-05-09 21:54 | XMS REPORT ---
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 pvbhkrzu-pmbqivbcw-AM 3.5-10,000-1 mg/mL-unit/mL-% otic drops,suspension 201607/23/2016 instill 4 [...] Reviewed 04/28/2011 12:00 AM Decadron 1 mg ND#[id number] (Jr) Reviewed 04/28/2011 12:00 AM Depo-Medrol 80 mg ND#[id number]-Zoigeiev Reviewed 09/02/2015 12:00 AM Toradol 60 Mg NDC#6460-3662-67 Reviewed 09/02/2015 12:00 AM Phenergan, Up to 50 Mg RHC Medicaid Reviewed 09/16/2015 12:00 AM Toradol 60 Mg ND#5980-0191-65 Reviewed 09/16/2015 12:00 AM Phenergan Up to 50 mg RHC Medicare Reviewed 05/11/2011 12:00 AM N BLOCK INJ OCCIPITAL Reviewed 05/11/2011 12:00 AM Kenalog Qe-[address]-20 ANNA Reviewed 11/13/2015 12:00 AM ASSAY OF [...] INJ SC/IM Reviewed 07/08/2011 12:00 AM Toradol,15mg [facility]#[id number], [place] Reviewed 07/08/2011 12:00 AM Phenergan 50 [place] 9632-5930-02 [place] Reviewed 01/21/2016 12:00 AM ECG MONIT/REPRT UP TO 48 HRS Returned 08/02/2011 12:00 AM THER/PROPH/DIAG INJ SC/IM Reviewed 08/02/2011 12:00 AM Decadron 1 mg [facility]#[id number] (Jr) Reviewed 08/02/2011 12:00 AM Depo-Medrol 80 mg [facility]#[id number]-Vfgeoyxg Reviewed 03/05/2016 12:00 AM COMPLETE CBC W/AUTO DIFF WBC Reviewed 03/05/2016 12:00 AM STREP A ASSAY W/OPTIC Reviewed 03/05/2016 12:00 AM C-REACTIVE PROTEIN Reviewed 03/18/2016 12:00 AM [facility] MEDICARE - flu vaccine administration Reviewed 03/18/2016 [...] Reviewed 09/27/2011 12:00 AM Depo-Medrol 80 mg ND#[id number]-Drjybxyb Reviewed 09/27/2011 12:00 AM Depo-Medrol 40 mg ND#[id number] Reviewed 07/06/2016 12:00 AM CHEST X-RAY 4/> [...] Reviewed 12/23/2011 12:00 AM Decadron 1 mg NDC#[id number] (Jr) Reviewed 12/23/2011 12:00 AM Depo-Medrol 80 mg NDC#[id number]-Xkflznjr Reviewed 11/02/2016 11:45 AM URINALYSIS AUTO W/O [...] Reviewed 02/09/2012 12:00 AM Decadron 1 mg NDC#[id number] (Jr) Reviewed 02/09/2012 12:00 AM Depo-Medrol 80 mg NDC#[id number]-Qsfelcfa Reviewed 02/21/2017 12:00 AM CULTURE OTHR SPECIMN AEROBIC Returned 02/21/2017 12:00 AM INFLUENZA ASSAY W/OPTIC Returned 02/23/2017 12:00 AM COMPLETE CBC W/AUTO DIFF WBC Reviewed 02/23/2017 12:00 AM X-RAY EXAM OF KNEE 3 Returned 03/15/2012 12:00 AM N BLOCK INJ OCCIPITAL Reviewed 03/15/2012 12:00 AM Kenalog Nz-[address]-20 ANNA Reviewed 04/11/2012 12:00 AM COMPLETE CBC [...] 1 Mg [facility]# [address]-33 Reviewed 06/20/2012 12:00 AM Depo-Medrol, Per 80 Mg [facility]#4472-8688-39 Reviewed 09/06/2017 12:00 AM RADEX FOOT COMPLETE MINIMUM 3 VIEWS Returned 09/06/2017 12:00 AM X-RAY EXAM RIBS UNI 2 VIEWS Returned 08/15/2017 12:00 AM COMPLETE CBC W/AUTO DIFF WBC Returned 08/15/2017 12:00 AM COMPREHEN METABOLIC PANEL Returned 08/15/2017 12:00 AM URINALYSIS AUTO W/SCOPE Returned 09/06/2012 12:00 AM N BLOCK INJ OCCIPITAL Reviewed 09/06/2012 12:00 AM Kenalog Sp-[address]-20 ANNA Reviewed 09/06/2012 12:00 AM X-RAY EXAM RIBS UNI 2 VIEWS Reviewed 09/26/2012 12:00 AM THER/PROPH/DIAG INJ SC/IM Reviewed 09/26/2012 12:00 AM Decadron, Per 1 Mg ND# [address]-14 Reviewed 09/26/2012 12:00 AM Depo-Medrol, Per 80 Mg ND#9200-9633-46 Reviewed 10/03/2012 12:00 AM URINALYSIS AUTO W/O SCOPE Reviewed 10/03/2012 12:00 AM THER/PROPH/DIAG INJ SC/IM Reviewed 10/03/2012 12:00 AM Toradol 60 Mg ND#2822-5814-38 Reviewed 10/03/2012 12:00 AM Phenergan, 25Mg ND#1237-1758-55 Reviewed 10/19/2012 12:00 AM N BLOCK INJ OCCIPITAL Reviewed 10/19/2012 12:00 AM Kenalog, Per 10 Mg ND#1126-8968-00 Reviewed 10/19/2012 12:00 AM Toradol 30 Mg ND#2700-5483-70 Reviewed 10/19/2012 12:00 AM THER/PROPH/DIAG INJ SC/IM Reviewed 10/31/2012 12:00 AM COMPLETE CBC W/AUTO DIFF WBC Reviewed 10/31/2012 12:00 AM COMPREHEN METABOLIC PANEL Reviewed 10/31/2012 12:00 AM LIPID PANEL Reviewed 10/31/2012 12:00 AM ELECTROCARDIOGRAM COMPLETE Reviewed 11/03/2012 12:[address] THORAX W/O & W/DYE Reviewed 11/08/2012 12:00 AM N BLOCK INJ OCCIPITAL Reviewed 11/08/2012 12:00 AM Kenalog Ea-[address]-20 ANNA Reviewed 11/27/2012 12:00 AM COMPLETE CBC [...] 1 Mg [facility]# [address]-66 Reviewed 01/25/2013 12:00 AM Depo-Medrol, Per 80 Mg [facility]#6216-6103-66 Reviewed 01/26/2013 12:00 AM IMMUNOTHERAPY ONE INJECTION [...] 1 Mg [facility]# [address]-47 Reviewed 05/16/2013 12:00 AM Depo-Medrol, Per 80 Mg [facility]#5210-0657-99 Reviewed 05/31/2013 12:00 AM IMMUNOTHERAPY INJECTIONS Reviewed 06/08/2013 12:00 AM IMMUNOTHERAPY INJECTIONS Reviewed 06/14/2013 12:00 AM IMMUNOTHERAPY INJECTIONS Reviewed 06/28/2013 12:00 AM IMMUNOTHERAPY INJECTIONS Reviewed 07/12/2013 12:00 AM X-RAY EXAM RIBS UNI 2 VIEWS Reviewed 07/18/2013 12:00 AM Toradol 60 Mg [facility]#8800-2264-50 Reviewed 07/18/2013 12:00 AM THER/PROPH/DIAG INJ SC/IM [...] 1 Mg [facility]# [address]-26 Reviewed 09/14/2013 12:00 AM Depo-Medrol, Per 80 Mg [facility]#5441-3163-53 Reviewed 09/20/2013 12:00 AM IMMUNOTHERAPY INJECTIONS Reviewed [...] INJ OCCIPITAL Reviewed 12/10/2009 12:00 AM Quentin Fv-[address]-20 ANNA Reviewed 12/16/2009 12:00 AM HIV-1ANTIBODY Reviewed 12/16/2009 12:00 AM COMPLETE CBC W/AUTO DIFF WBC Reviewed 12/16/2009 12:00 AM METABOLIC PANEL TOTAL CA Reviewed 12/16/2009 12:00 AM Type and screen Reviewed 12/16/2009 12:00 AM PROTHROMBIN TIME Reviewed 12/16/2009 12:00 AM THROMBOPLASTIN TIME PARTIAL Reviewed 03/18/2010 12:00 AM DRAIN/INJ JOINT/BURSA W/O US Reviewed 03/18/2010 12:00 AM Kenalog Th-[address]-20 ANNA Reviewed 11/21/2013 12:00 AM RADEX HAND MINIMUM 3 VIEWS Reviewed 06/03/2010 12:00 AM INJ TRIGGER POINT 1/2 MUSCL Reviewed 06/03/2010 12:00 AM Kenalog per 10Mg [facility]#[address]-49(Niall) Reviewed 12/05/2013 12:00 AM COMPLETE CBC W/AUTO [...] 07/23/2010 12:00 AM Kenalog per 10Mg [facility]#[address]-12(Nilal) Reviewed 2014 12:00 AM COMPLETE CBC W/AUTO [...] INJ OCCIPITAL Reviewed 10/01/2010 12:00 AM Kenalog To-[address]-20 ANNA Reviewed 07/25/2014 12:00 AM THER/PROPH/DIAG INJ [...] Quant,IgM <0.80 RMSF , IgG, EIA Negative [facility] Spotted Fever,IgM 0.51 E. [...] 141 Influenza 04/24/2014 sanofi pasteur PMC FLUZONE [id number] Intramuscular Left Upper Arm 02/27/2014 01/15/2014 141 Influenza 02/13/2015 sanofi pasteur PMC FLUZONE [id number] Intramuscular Left Deltoid 02/13/2015 01/03/2015 140 Tdap 06/06/2015 [employer] SKB BOOSTRIX [id number] Intramuscular Left Deltoid 06/06/2015 07/23/2014 115 Influenza 03/18/2016 sanofi pasteur PMC FLUZONE [id number] Intramuscular Left Deltoid 03/17/2016 01/03/2015 141 History [...] mellitus with hyperglycemia Jun 24 2017 10:33AM nursing home (current) use of insulin Jun 24 2017 [...] Number Start Date Medicare RHC Medicare RHC [id number] N/A [facility] Comm [id number] N/A Medicare Part A Medicare - Lab/Xray [id number] N/A Medicare Part B Medicare Of [place] [id number] Monday, February 28, 2000 [place] [facility] [place] [facility] [place]g [id number] Tuesday, November 10, 2009 Medicare Part A Medicare Part A [id number] N/A [place] [employer] - RHC [place] [employer] - RHC [id number] May [facility] Comm Plan of [id number] Wednesday, May 30, 2012 History of Encounters Visit Date Visit Type Provider 09/14/2017 Office visit Heena Dumont MD 09/06/2017 Office visit Kaylynn Mendez APRN 08/15/2017 Office visit Heena Dumont MD 07/18/2017 Office visit Heena Dumont MD 06/28/2017 Office visit 06/28/2017 Office visit Lena El FLOOR MOLDER 06/24/2017 Office visit Sundeep Russell FLOOR MOLDER 06/02/2017 Office visit Heena Dumont MD 04/20/2017 Office visit 04/20/2017 Office visit 04/20/2017 Office visit 04/20/2017 Office visit Heena Dumont MD 03/22/2017 Office visit Heena Dumont MD 03/05/2017 Office visit Lena Chaves FLOOR MOLDER 02/23/2017 Office visit Symone PolkBarbara Marie FLOOR MOLDER 02/21/2017 Office visit Heena Dumont MD 02/15/2017 Office visit Heena Dumont MD 02/02/2017 Office visit Heena Dumont MD 01/07/2017 Office visit Riccardo Cardoza MD 01/03/2017 Office visit Heena Dumont MD 12/15/2016 Office visit Kaylynn Mendez FLOOR MOLDER 12/02/2016 Office visit Heena Dumont MD 11/23/2016 [facility] Elsieo Hoskins MD 11/23/2016 Office visit Kaylynn Mendez FLOOR MOLDER 11/17/2016 Office visit Kaylynn Mendez FLOOR MOLDER 11/05/2016 Office visit Riccardo Cardoza MD 11/02/2016 Office visit Heena Dumont MD 10/06/2016 Office visit Kaylynn Mendez FLOOR MOLDER 09/22/2016 Office visit Heena Dumont MD 09/09/2016 Office visit Kaylynn Mendez FLOOR MOLDER 08/27/2016 Office visit Riccardo Cardoza MD 08/26/2016 Office visit Heena Dumont MD 07/09/2016 Office visit Riccardo Cardoza MD 07/06/2016 Office visit Heena Dumont MD 06/18/2016 Office visit Kaylynn Mendez FLOOR MOLDER 06/07/2016 Office visit Sundeep Russell FLOOR MOLDER 06/04/2016 Office visit Heena Dumont MD 05/13/2016 Office visit Heena Dumont MD 05/03/2016 Office visit Heena Dumont MD 04/26/2016 Office visit Kaylynn Mendez FLOOR MOLDER 04/14/2016 Office visit Heena Dumont MD 04/13/2016 Office visit Kaylynn Mendez FLOOR MOLDER 04/02/2016 Office visit Lena El FLOOR MOLDER 04/02/2016 Office visit Heena Dumont MD 03/26/2016 Office visit Yesica Falcon FLOOR MOLDER 03/17/2016 Office visit Heena Dumont MD 03/05/2016 Office visit Kaylynn Mendez FLOOR MOLDER 02/16/2016 Office visit Heena Dumont MD 02/14/2016 Office visit Na Jones FLOOR MOLDER 01/16/2016 Office visit Heena Dumont MD 12/16/2015 Office visit Heena Dumont MD 11/24/2015 Office visit Kaylynn Mendez FLOOR MOLDER 11/18/2015 Office visit Heena Dumont MD 11/03/2015 Office visit Sundeep Russell FLOOR MOLDER 10/20/2015 Office visit Kaylynn Mendez FLOOR MOLDER 09/23/2015 Office visit Kaylynn Mendez FLOOR MOLDER 09/16/[address] Pepe Figueroa MD 09/02/2015 Office visit Kaylynn Mendez FLOOR MOLDER 09/01/2015 Office visit Kaylynn Mendez FLOOR MOLDER 07/30/2015 Office visit Heena Dumont MD 07/15/2015 Office visit Kaylynn Mendez FLOOR MOLDER 07/04/2015 Office visit Heena Dumont MD 06/06/2015 Office visit Heena Dumont MD 06/06/2015 Office visit Kaylynn Mendez FLOOR MOLDER 06/02/2015 Office visit Kaylynn Mendez FLOOR MOLDER 05/26/2015 Office visit Kaylynn Mendez FLOOR MOLDER 05/20/2015 Office visit Kaylynn Mendez FLOOR MOLDER 05/08/2015 Office visit Heena Dumont MD 05/06/2015 Office visit Kaylynn Mendez FLOOR MOLDER 04/29/2015 Office visit Kaylynn Mendez FLOOR MOLDER 03/27/2015 Voided Brittni Yanez FLOOR MOLDER 03/21/2015 Office visit Heena Dumont MD 03/12/2015 Office visit Kaylynn Mendez FLOOR MOLDER 02/26/2015 Office visit Brittni Yanez FLOOR MOLDER 02/13/2015 Office visit Heena Dumont MD 01/15/2015 Office visit Brittni Yanez FLOOR MOLDER 01/13/2015 Office visit Heena Dumont MD 01/08/[address] Carol Fowler MD 01/01/2015 Office visit Brittni Yanez FLOOR MOLDER 12/13/2014 Office visit Heena Dumnot MD 11/27/2014 Office visit Kaylynn Mendez FLOOR MOLDER 11/14/2014 Office visit Heena Dumont MD 10/18/2014 Office visit Heena Dumont MD 10/17/2014 [facility] John Hoskins MD 10/09/2014 Office visit Heena Dumont MD 09/25/2014 Office visit Heena Dumont MD 09/17/2014 Office visit Kaylynn Mendez FLOOR MOLDER 09/04/2014 Office visit Heena Dumont MD 08/28/2014 Office visit Kaylynn Mendez FLOOR MOLDER 08/23/2014 [facility] John Hoskins MD 08/01/2014 Office visit Kaylynn Mendez FLOOR MOLDER 07/29/2014 Office visit Heena Dumont MD 07/25/2014 Nurse visit Heena Dumont MD 07/17/2014 Office visit Kaylynn Mendez FLOOR MOLDER 07/11/2014 Office visit Heena Dumont MD 07/01/2014 Office visit Heena Dumont MD 06/25/2014 Office visit Kaylynn Walker FLOOR MOLDER 06/12/2014 Office visit Kaylynn Walker FLOOR MOLDER 06/06/2014 Office visit Kaylynn Mendez FLOOR MOLDER 05/27/2014 Office visit Heena Dumont MD 04/20/2014 Office visit Yesica Falcon FLOOR MOLDER 03/29/2014 Office visit Na Jones FLOOR MOLDER 03/15/2014 Office visit Heena Dumont MD 2014 Office visit Heena Dumont MD 2014 [facility] John Hoskins MD 02/27/2014 Nurse visit Heena Dumont MD 02/13/2014 Office visit Lena El FLOOR MOLDER 02/07/2014 Office visit Heena Dumont MD 02/03/2014 Office visit Na Jones FLOOR MOLDER 01/30/2014 Office visit Kaylynn Mendez FLOOR MOLDER 01/24/2014 Office visit Sundeep Russell FLOOR MOLDER 01/16/2014 Office visit Kaylynn Mendez FLOOR MOLDER 01/10/2014 Nurse visit Kaylynn Mendez FLOOR MOLDER 01/08/2014 Office visit Kaylynn Mendez FLOOR MOLDER 12/05/2013 Office visit Kaylynn Mendez FLOOR MOLDER 11/21/2013 Office visit Kaylynn Mendez FLOOR MOLDER 10/23/2013 Office visit Brittni Yanez FLOOR MOLDER 10/17/2013 Nurse visit Heena Dumont MD 10/12/2013 Office visit Kaylynn Mendez FLOOR MOLDER 10/02/2013 Office visit Heena Dumont MD 09/20/2013 Nurse visit Kaylynn Mendez FLOOR MOLDER 09/20/2013 Voided Heena Dumont MD 09/14/2013 Office visit Kaylynn Walker FLOOR MOLDER 09/05/2013 Office visit Sundeep Russell FLOOR MOLDER 09/04/2013 Nurse visit Kaylynn Mendez FLOOR MOLDER 08/31/2013 Office visit Kaylynn Mendez FLOOR MOLDER 08/23/2013 Office visit Heena Dumont MD 08/10/2013 Office visit Kaylynn Mendez FLOOR MOLDER 07/25/2013 Office visit Kaylynn Mendez FLOOR MOLDER 07/18/2013 Office visit Kaylynn Walker FLOOR MOLDER 07/12/2013 Office visit Kaylynn Walker FLOOR MOLDER 06/28/2013 Nurse visit Kaylynn Walker FLOOR MOLDER 06/14/2013 Nurse visit Kaylynn Walker FLOOR MOLDER 06/08/2013 Nurse visit Kaylynn Walker FLOOR MOLDER 05/31/2013 Nurse visit Chadd Norris DO 05/18/2013 Office visit Terese Davidson MD 05/16/2013 Office visit Kaylynn Walker FLOOR MOLDER 05/09/2013 Office visit Kaylynn Walker FLOOR MOLDER 04/29/2013 [facility] John Hoskins MD 04/25/2013 Nurse visit Kaylynn Walker FLOOR MOLDER 04/17/2013 Office visit Kaylynn Walker FLOOR MOLDER 04/03/2013 Nurse visit Kaylynn Walker FLOOR MOLDER 04/03/2013 Office visit Terese Davidson MD 03/28/2013 Office visit Sundeep Russell FLOOR MOLDER 03/21/2013 Office visit Kaylynn Walker FLOOR MOLDER 03/20/2013 Office visit Terese Davidson MD 03/14/2013 Nurse visit Kaylynn Walker FLOOR MOLDER 03/05/2013 Nurse visit Kaylynn Walker FLOOR MOLDER 02/19/2013 Office visit Terese Davidson MD 02/16/2013 Nurse visit Kaylynn Walker FLOOR MOLDER 02/09/2013 Office visit Sundeep Russell FLOOR MOLDER 02/08/2013 Nurse visit Kaylynn Walker FLOOR MOLDER 02/01/2013 Nurse visit Kaylynn Walker FLOOR MOLDER 01/26/2013 Nurse visit Sabrina Mendez [employer] MA[employer] 01/25/2013 Office visit Kaylynn Walker FLOOR MOLDER 01/22/2013 Office visit Yoan Castaneda MD 01/18/2013 Nurse visit Kaylynn Walker FLOOR MOLDER 01/11/2013 Nurse visit Kaylynn Walker FLOOR MOLDER 01/05/2013 Nurse visit Kaylynn Walker FLOOR MOLDER 12/29/2012 Office visit Kaylynn Walker FLOOR MOLDER 11/27/2012 Office visit Kaylynn Mendez FLOOR MOLDER 11/08/2012 Office visit Odell Tierney MD 11/08/2012 Voided Odell Tierney MD 11/07/2012 Office visit Kaylynn Mendez FLOOR MOLDER 10/31/2012 [facility] John Hoskins MD 10/31/2012 Office visit Kaylynn Walker FLOOR MOLDER 10/19/2012 Office visit Genoveva Ayala FLOOR MOLDER 10/10/2012 Office visit Kaylynn Walker FLOOR MOLDER 10/03/2012 Office visit Kaylynn Walker FLOOR MOLDER 09/26/2012 Office visit Kaylynn Walker FLOOR MOLDER 09/06/2012 Office visit Kaylynn Mendez FLOOR MOLDER 09/06/2012 Office visit Odell Tierney MD 08/31/2012 Voided Kaylynn Mendez FLOOR MOLDER 07/28/2012 Office visit Kaylynn Andrea FLOOR MOLDER 07/27/2012 Office visit David Ar DO 07/20/2012 Hospital David Sherifftom DO 07/13/2012 Hospital David Ar DO 07/11/2012 Office visit Kaylynn Mendez FLOOR MOLDER 06/27/2012 Hospital Odell Tierney MD 06/21/2012 Office visit David Joyner DO 06/21/2012 Office visit Odell Tierney MD 06/20/2012 Office visit Brittni Yanez FLOOR MOLDER 06/06/2012 Office visit Odell Tierney MD 05/03/2012 Office visit Kaylynn Mendez FLOOR MOLDER 04/28/2012 Office visit Brittni Yanez FLOOR MOLDER 04/11/2012 Office visit Kaylynn Mendez FLOOR MOLDER 04/06/2012 Hospital John Hoskins MD 03/30/2012 Office visit Kaylynn Mendez FLOOR MOLDER 03/15/2012 Office visit Kaylynn Mendez FLOOR MOLDER 03/15/2012 Office visit Odell Tierney MD 02/09/2012 Office visit Kaylynn Mendez FLOOR MOLDER 12/23/2011 Office visit Kaylynn Mendez FLOOR MOLDER 11/02/2011 Office visit Kaylynn Mendez FLOOR MOLDER 10/14/2011 Office visit Kaylynn Mendez FLOOR MOLDER 09/27/2011 Office visit Kaylynn Mendez FLOOR MOLDER 08/19/2011 Hospital John Hoskins MD 08/18/2011 Hospital John Hoskins MD 08/18/2011 Office visit Kaylynn Mendez FLOOR MOLDER 08/02/2011 Office visit Kaylynn Mendez FLOOR MOLDER 07/08/2011 Office visit Kaylynn Mendez FLOOR MOLDER 07/05/2011 Office visit Odell Tierney MD 06/15/2011 Office visit Kaylynn Mendez FLOOR MOLDER 05/14/2011 Office visit Kaylynn Menedz FLOOR MOLDER 05/11/2011 Office visit Odell Tierney MD 04/28/2011 Office visit Kaylynn Mendez FLOOR MOLDER 03/02/2011 Office visit Chadd Norris DO [...]
--- OUTSIDE RECORDS SUMMARY | 2018-05-09 22:00 | XMS REPORT ---
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 IQ Meter miscellaneous kit 01/21/2016 test 2 [...] 08/27/2014 use as directed for 99 days Kirby 5-325 mg oral tablet 06/17/2014 06/27/2014 take [...] a day as needed for 30 days ffpgnrnq-doqgroqos-LV 3.5-10,000-1 mg/mL-unit/mL-% otic drops,suspension 201401/08/2015 instill 4 [...] Ok for similiar substitution or individual components. greonktt-sbmmtyxph-MO 3.5-10,000-1 mg/mL-unit/mL-% otic drops,suspension 201607/23/2016 instill 4 [...] Reviewed 04/28/2011 12:00 AM Decadron 1 mg ND#[id number] (Jr) Reviewed 04/28/2011 12:00 AM Depo-Medrol 80 mg ND#[id number]-Krjzoipg Reviewed 09/02/2015 12:00 AM Toradol 60 Mg NDC#5242-8235-13 Reviewed 09/02/2015 12:00 AM Phenergan, Up to 50 Mg RHC Medicaid Reviewed 09/16/2015 12:00 AM Toradol 60 Mg NDC#7342-4753-64 Reviewed 09/16/2015 12:00 AM Phenergan Up to 50 mg RHC Medicare Reviewed 05/11/2011 12:00 AM N BLOCK INJ OCCIPITAL Reviewed 05/11/2011 12:00 AM Kenalog Ce-[address]-20 ANNA Reviewed 11/13/2015 12:00 AM ASSAY OF [...] Reviewed 07/08/2011 12:00 AM Toradol,15mg [facility]#[id number], [place] Reviewed 07/08/2011 12:00 AM Phenergan 50 Mg Im [facility] 7743-0267-66 [place] Reviewed 01/21/2016 12:00 AM ECG MONIT/REPRT UP TO 48 HRS Returned 08/02/2011 12:00 AM THER/PROPH/DIAG INJ SC/IM Reviewed 08/02/2011 12:00 AM Decadron 1 mg [facility]#[id number] (Jr) Reviewed 08/02/2011 12:00 AM Depo-Medrol 80 mg [facility]#[id number]-Vscnufqn Reviewed 03/05/2016 12:00 AM COMPLETE CBC W/AUTO DIFF WBC Reviewed 03/05/2016 12:00 AM STREP A ASSAY W/OPTIC Reviewed 03/05/2016 12:00 AM C-REACTIVE PROTEIN Reviewed 03/18/2016 12:00 AM [facility] [...] Reviewed 09/27/2011 12:00 AM Depo-Medrol 80 mg ND#[id number]-Lwyoytxr Reviewed 09/27/2011 12:00 AM Depo-Medrol 40 mg [facility]#[id number] Reviewed 07/06/2016 12:00 AM CHEST X-RAY 4/> [...] Reviewed 12/23/2011 12:00 AM Decadron 1 mg NDC#[id number] (Jr) Reviewed 12/23/2011 12:00 AM Depo-Medrol 80 mg NDC#[id number]-Zvslbaad Reviewed 02/09/2012 12:00 AM THER/PROPH/DIAG INJ SC/IM Reviewed 02/09/2012 12:00 AM Decadron 1 mg NDC#[id number] (Jr) Reviewed 02/09/2012 12:00 AM Depo-Medrol 80 mg NDC#[id number]-Cnbjdnor Reviewed 03/15/2012 12:00 AM N BLOCK INJ OCCIPITAL Reviewed 03/15/2012 12:00 AM Kenalog Vl-[address]-20 ANNA Reviewed 04/11/2012 12:00 AM COMPLETE CBC W/AUTO DIFF WBC Reviewed 04/11/2012 12:00 AM COMPREHEN METABOLIC PANEL Reviewed 04/11/2012 12:00 AM LIPID PANEL Reviewed 04/11/2012 12:00 AM ASSAY THYROID STIM HORMONE Reviewed 06/20/2012 12:00 AM THER/PROPH/DIAG INJ SC/IM Reviewed 06/20/2012 12:00 AM Decadron, Per 1 Mg ND# [address]-46 Reviewed 06/20/2012 12:00 AM Depo-Medrol, Per 80 Mg NDC#7710-2908-52 Reviewed 09/06/2012 12:00 AM N BLOCK INJ OCCIPITAL Reviewed 09/06/2012 12:00 AM Kenalog Vi-[address]-20 ANNA Reviewed 09/06/2012 12:00 AM X-RAY EXAM RIBS UNI 2 VIEWS Reviewed 09/26/2012 12:00 AM THER/PROPH/DIAG INJ SC/IM Reviewed 09/26/2012 12:00 AM Decadron, Per 1 Mg [facility]# [address]-95 Reviewed 09/26/2012 12:00 AM Depo-Medrol, Per 80 Mg [facility]#7805-6321-44 Reviewed 10/03/2012 12:00 AM URINALYSIS AUTO W/O SCOPE Reviewed 10/03/2012 12:00 AM THER/PROPH/DIAG INJ SC/IM Reviewed 10/03/2012 12:00 AM Toradol 60 Mg [facility]#9486-5952-85 Reviewed 10/03/2012 12:00 AM Phenergan, 25Mg [facility]#6054-7363-17 Reviewed 10/19/2012 12:00 AM N BLOCK INJ OCCIPITAL Reviewed 10/19/2012 12:00 AM Kenalog, Per 10 Mg [facility]#0427-5278-15 Reviewed 10/19/2012 12:00 AM Toradol 30 Mg [facility]#3022-7840-68 Reviewed 10/19/2012 12:00 AM THER/PROPH/DIAG INJ SC/IM Reviewed 10/31/2012 12:00 AM COMPLETE CBC W/AUTO DIFF WBC Reviewed 10/31/2012 12:00 AM COMPREHEN METABOLIC PANEL Reviewed 10/31/2012 12:00 AM LIPID PANEL Reviewed 11/03/2012 12:[address] THORAX W/O & W/DYE Reviewed 11/08/2012 12:00 AM N BLOCK INJ OCCIPITAL Reviewed 11/08/2012 12:00 AM Kenalog Gd-[address]-20 ANNA Reviewed 11/27/2012 12:00 AM COMPLETE CBC [...] Decadron, Per 1 Mg [facility]# [address]-64 Reviewed 01/25/2013 12:00 AM Depo-Medrol, Per 80 Mg [facility]#7248-7091-43 Reviewed 01/26/2013 12:00 AM IMMUNOTHERAPY INJECTIONS Reviewed [...] Decadron, Per 1 Mg [facility]# [address]-76 Reviewed 05/16/2013 12:00 AM Depo-Medrol, Per 80 Mg [facility]#9989-6179-02 Reviewed 05/31/2013 12:00 AM IMMUNOTHERAPY INJECTIONS Reviewed 06/08/2013 12:00 AM IMMUNOTHERAPY INJECTIONS Reviewed 06/14/2013 12:00 AM IMMUNOTHERAPY INJECTIONS Reviewed 06/28/2013 12:00 AM IMMUNOTHERAPY INJECTIONS Reviewed 07/12/2013 12:00 AM X-RAY EXAM RIBS UNI 2 VIEWS Reviewed 07/18/2013 12:00 AM Toradol 60 Mg [facility]#8810-2536-24 Reviewed 07/18/2013 12:00 AM THER/PROPH/DIAG INJ SC/IM Reviewed 08/23/2013 12:00 AM COMPLETE CBC W/AUTO DIFF WBC Reviewed 08/23/2013 12:00 AM COMPREHEN METABOLIC PANEL Reviewed 08/23/2013 12:00 AM LIPID PANEL Reviewed 08/31/2013 12:00 AM X-RAY EXAM OF LOWER LEG Reviewed 09/04/2013 12:00 AM IMMUNOTHERAPY INJECTIONS Reviewed 09/14/2013 12:00 AM THER/PROPH/DIAG INJ SC/IM Reviewed 09/14/2013 12:00 AM Decadron, Per 1 Mg [facility]# [address]-87 Reviewed 09/14/2013 12:00 AM Depo-Medrol, Per 80 Mg [facility]#6236-5323-12 Reviewed 09/20/2013 12:00 AM IMMUNOTHERAPY INJECTIONS Reviewed [...] INJ OCCIPITAL Reviewed 12/10/2009 12:00 AM Quentin Uo-[address]-20 ANNA Reviewed 12/16/2009 12:00 AM HIV-1ANTIBODY Reviewed 12/16/2009 12:00 AM COMPLETE CBC W/AUTO DIFF WBC Reviewed 12/16/2009 12:00 AM METABOLIC PANEL TOTAL CA Reviewed 12/16/2009 12:00 AM Type and screen Reviewed 12/16/2009 12:00 AM PROTHROMBIN TIME Reviewed 12/16/2009 12:00 AM THROMBOPLASTIN TIME PARTIAL Reviewed 03/18/2010 12:00 AM DRAIN/INJ JOINT/BURSA W/O US Reviewed 03/18/2010 12:00 AM Quentin Bq-[address]-20 ANNA Reviewed 11/21/2013 12:00 AM RADEX HAND MINIMUM 3 VIEWS Reviewed 06/03/2010 12:00 AM INJ TRIGGER POINT 1/2 MUSCL Reviewed 06/03/2010 12:00 AM Kenalog per 10Mg [facility]#[address]-34(Niall) Reviewed 12/05/2013 12:00 AM COMPLETE CBC W/AUTO [...] AM Kenalog per 10Mg [facility]#[address]-84(Niall) Reviewed 2014 12:00 AM COMPLETE CBC W/AUTO [...] INJ OCCIPITAL Reviewed 10/01/2010 12:00 AM Kenalog Gy-[address]-20 ANNA Reviewed 07/25/2014 12:00 AM THER/PROPH/DIAG INJ [...] 141 Influenza 04/24/2014 [employer] [facility] Fluzone [id number] Intramuscular Left Upper Arm 02/27/2014 01/15/2014 141 Influenza 02/13/2015 [facility] PMC Fluzone [id number] Intramuscular Left Deltoid 02/13/2015 01/03/2015 140 Tdap 06/06/2015 [employer] SKB BOOSTRIX [id number] Intramuscular Left Deltoid 06/06/2015 07/23/2014 115 Influenza 03/18/2016 [facility] PMC Fluzone [id number] Intramuscular Left Deltoid 03/17/2016 01/03/2015 141 History [...] Lumbago b 6 2011 1:58PM Muscle Spasm Jun 6 2011 1:58PM Headache b 9 2011 1:38PM Heart Sound Abnormality Feb [...] Number Policy Group Number Start Date Medicare [facility] Medicare RHC [id number] N/A [facility] Comm [id number] N/A Medicare Part A Medicare - Lab/Xray [id number] N/A Medicare Part B Medicare Of [place] [id number] Monday, February 28, 2000 [place] [facility] [place] [facility] [place] [id number] Tuesday, November 10, 2009 Medicare Part A Medicare Part A [id number] N/A [place] [facility] - [facility] [id number] [facility] Plan of [id number] Wednesday, May 30, 2012 History of Encounters Visit Date Visit Type Provider 10/06/2016 Office visit Kaylynn Mendez FORMULATOR COMPOUNDER 09/22/2016 Office visit Heena Dumont MD 09/09/2016 Office visit Kaylynn Mendez FORMULATOR COMPOUNDER 08/27/2016 Office visit Riccardo Cardoza MD 08/26/2016 Office visit Heena Dumont MD 07/09/2016 Office visit Riccardo Cardoza MD 07/06/2016 Office visit Heena Dumont MD 06/18/2016 Office visit Kaylynn Mendez FORMULATOR COMPOUNDER 06/07/2016 Office visit Sundeep Russell FORMULATOR COMPOUNDER 06/04/2016 Office visit Heena Dumont MD 05/13/2016 Office visit Heena Dumont MD 05/03/2016 Office visit Heena Dumont MD 04/26/2016 Office visit Kaylynn Mendez FORMULATOR COMPOUNDER 04/14/2016 Office visit Heena Dumont MD 04/13/2016 Office visit Kaylynn Mendez FORMULATOR COMPOUNDER 04/02/2016 Office visit Lena El FORMULATOR COMPOUNDER 04/02/2016 Office visit Heena Dumont MD 03/26/2016 Office visit Yesica Falcon FORMULATOR COMPOUNDER 03/17/2016 Office visit Heena Dumont MD 03/05/2016 Office visit Kaylynn Mendez FORMULATOR COMPOUNDER 02/16/2016 Office visit Heena Dumont MD 02/14/2016 Office visit Na Jones FORMULATOR COMPOUNDER 01/16/2016 Office visit Heena Dumont MD 12/16/2015 Office visit Heena Dumont MD 11/24/2015 Office visit Kaylynn Mendez FORMULATOR COMPOUNDER 11/18/2015 Office visit Heena Dumont MD 11/03/2015 Office visit Sundeep Russell FORMULATOR COMPOUNDER 10/20/2015 Office visit Kaylynn Mendez FORMULATOR COMPOUNDER 09/23/2015 Office visit Kaylynn Mendez FORMULATOR COMPOUNDER 09/16/[address] Pepe Figueroa MD 09/02/2015 Office visit Kaylynn Mendez FORMULATOR COMPOUNDER 09/01/2015 Office visit Kaylynn Mendez FORMULATOR COMPOUNDER 07/30/2015 Office visit Heena Dumont MD 07/15/2015 Office visit Kaylynn Mendez FORMULATOR COMPOUNDER 07/04/2015 Office visit Heena Dumont MD 06/06/2015 Office visit Heena Dumont MD 06/06/2015 Office visit Kaylynn Mendez FORMULATOR COMPOUNDER 06/02/2015 Office visit Kaylynn Mendez FORMULATOR COMPOUNDER 05/26/2015 Office visit Kaylynn Mendez FORMULATOR COMPOUNDER 05/20/2015 Office visit Kaylynn Mendez FORMULATOR COMPOUNDER 05/08/2015 Office visit Heena Dumont MD 05/06/2015 Office visit Kaylynn Mendez FORMULATOR COMPOUNDER 04/29/2015 Office visit Kaylynn Mendez FORMULATOR COMPOUNDER 03/27/2015 Voided Brittni Yanez FORMULATOR COMPOUNDER 03/21/2015 Office visit Heena Dumont MD 03/12/2015 Office visit Kaylynn Mendez FORMULATOR COMPOUNDER 02/26/2015 Office visit Brittni Yanez FORMULATOR COMPOUNDER 02/13/2015 Office visit Heena Dumont MD 01/15/2015 Office visit Brittni Yanez FORMULATOR COMPOUNDER 01/13/2015 Office visit Heena Dumont MD 01/08/[address] Carol Fowler MD 01/01/2015 Office visit Brittni Yanez FORMULATOR COMPOUNDER 12/13/2014 Office visit Heena Dumont MD 11/27/2014 Office visit Kaylynn Mendez FORMULATOR COMPOUNDER 11/14/2014 Office visit Heena Dumont MD 10/18/2014 Office visit Heena Dumont MD 10/17/2014 [facility] John Hoskins MD 10/09/2014 Office visit Heena Dumont MD 09/25/2014 Office visit Heena Dumont MD 09/17/2014 Office visit Kaylynn Mendez FORMULATOR COMPOUNDER 09/04/2014 Office visit Heena Dumont MD 08/28/2014 Office visit Kaylynn Mendez FORMULATOR COMPOUNDER 08/23/2014 [facility] John Hoskins MD 08/01/2014 Office visit Kaylynn Mendez FORMULATOR COMPOUNDER 07/29/2014 Office visit Heena Dumont MD 07/25/2014 Nurse visit Heena Dumont MD 07/17/2014 Office visit Kaylynn Mendez FORMULATOR COMPOUNDER 07/11/2014 Office visit Heena Dumont MD 07/01/2014 Office visit Heena Dumont MD 06/25/2014 Office visit Kaylynn Mendez FORMULATOR COMPOUNDER 06/12/2014 Office visit Kaylynn Mendez FORMULATOR COMPOUNDER 06/06/2014 Office visit Kaylynn Mendez FORMULATOR COMPOUNDER 05/27/2014 Office visit Heena Dumont MD 04/20/2014 Office visit Yesica Falcon FORMULATOR COMPOUNDER 03/29/2014 Office visit Na Jones FORMULATOR COMPOUNDER 03/15/2014 Office visit Heena Dumont MD 2014 Office visit Heena Dumont MD 2014 Hospital John Hoskins MD 02/27/2014 Nurse visit Heena Dumont MD 02/13/2014 Office visit Lena El FORMULATOR COMPOUNDER 02/07/2014 Office visit Heena Dumont MD 02/03/2014 Office visit Na Jones FORMULATOR COMPOUNDER 01/30/2014 Office visit Kaylynn Walker FORMULATOR COMPOUNDER 01/24/2014 Office visit Sundeep Russell FORMULATOR COMPOUNDER 01/16/2014 Office visit Kaylynn Walker FORMULATOR COMPOUNDER 01/10/2014 Nurse visit Kaylynn Walker FORMULATOR COMPOUNDER 01/08/2014 Office visit Kaylynn Walker FORMULATOR COMPOUNDER 12/05/2013 Office visit Kaylynn Walker FORMULATOR COMPOUNDER 11/21/2013 Office visit Kaylynn Walker FORMULATOR COMPOUNDER 10/23/2013 Office visit Brittni Yanez FORMULATOR COMPOUNDER 10/17/2013 Nurse visit Heena Dumont MD 10/12/2013 Office visit Kaylynn Andrea FORMULATOR COMPOUNDER 10/02/2013 Office visit Heena Dumont MD 09/20/2013 Nurse visit Kaylynn Mendez FORMULATOR COMPOUNDER 09/20/2013 Voided Heena Dumont MD 09/14/2013 Office visit Kaylynn Walker FORMULATOR COMPOUNDER 09/05/2013 Office visit Sundeep Russell FORMULATOR COMPOUNDER 09/04/2013 Nurse visit Kaylynn Walker FORMULATOR COMPOUNDER 08/31/2013 Office visit Kaylynn Walker FORMULATOR COMPOUNDER 08/23/2013 Office visit Heena Dumont MD 08/10/2013 Office visit Kaylynn Walker FORMULATOR COMPOUNDER 07/25/2013 Office visit Kaylynn Walker FORMULATOR COMPOUNDER 07/18/2013 Office visit Kaylynn Walker FORMULATOR COMPOUNDER 07/12/2013 Office visit Kaylynn Walker FORMULATOR COMPOUNDER 06/28/2013 Nurse visit Kaylynn Walker FORMULATOR COMPOUNDER 06/14/2013 Nurse visit Kaylynn Walker FORMULATOR COMPOUNDER 06/08/2013 Nurse visit Kaylynn Walker FORMULATOR COMPOUNDER 05/31/2013 Nurse visit Chadd Norris DO 05/18/2013 Office visit Terese Davidson MD 05/16/2013 Office visit Kaylynn Mendez FORMULATOR COMPOUNDER 05/09/2013 Office visit Kaylynn Mendez FORMULATOR COMPOUNDER 04/29/2013 [facility] John Hoskins MD 04/25/2013 Nurse visit Kaylynn Walker FORMULATOR COMPOUNDER 04/17/2013 Office visit Kaylynn Walker FORMULATOR COMPOUNDER 04/03/2013 Nurse visit Kaylynn Mendez FORMULATOR COMPOUNDER 04/03/2013 Office visit Terese Davidson MD 03/28/2013 Office visit Sundeep Russell FORMULATOR COMPOUNDER 03/21/2013 Office visit Kaylynn Mendez FORMULATOR COMPOUNDER 03/20/2013 Office visit Terese Davidson MD 03/14/2013 Nurse visit Kaylynn Mendez FORMULATOR COMPOUNDER 03/05/2013 Nurse visit Kaylynn Mendez FORMULATOR COMPOUNDER 02/19/2013 Office visit Terese Davidson MD 02/16/2013 Nurse visit Kaylynn Mendez FORMULATOR COMPOUNDER 02/09/2013 Office visit Sundeep Russell FORMULATOR COMPOUNDER 02/08/2013 Nurse visit Kaylynn Mendez FORMULATOR COMPOUNDER 02/01/2013 Nurse visit Kaylynn Walker FORMULATOR COMPOUNDER 01/26/2013 Nurse visit Sabrina Andrea CORONER TRANSPORT TECHNICIAN 01/25/2013 Office visit Kaylynn Mendez FORMULATOR COMPOUNDER 01/22/2013 Office visit Yoan Castaneda MD 01/18/2013 Nurse visit Kaylynn Walker FORMULATOR COMPOUNDER 01/11/2013 Nurse visit Kaylynn Walker FORMULATOR COMPOUNDER 01/05/2013 Nurse visit Kaylynn Walker FORMULATOR COMPOUNDER 12/29/2012 Office visit Kaylynn Walker FORMULATOR COMPOUNDER 11/27/2012 Office visit Kaylynn Walker FORMULATOR COMPOUNDER 11/08/2012 Office visit Odell Tierney MD 11/08/2012 Voided Odell Tierney MD 11/07/2012 Office visit Kaylynn Mendez FORMULATOR COMPOUNDER 10/31/2012 [facility] John Hoskins MD 10/31/2012 Office visit Kaylynn Mendez FORMULATOR COMPOUNDER 10/19/2012 Office visit Genoveva Ayala FORMULATOR COMPOUNDER 10/10/2012 Office visit Kaylynn Mendez FORMULATOR COMPOUNDER 10/03/2012 Office visit Kaylynn Walker FORMULATOR COMPOUNDER 09/26/2012 Office visit Kaylynn Mendez FORMULATOR COMPOUNDER 09/06/2012 Office visit Kaylynn Mendez FORMULATOR COMPOUNDER 09/06/2012 Office visit Odell Tierney MD 08/31/2012 Voided Kaylynn Mendez FORMULATOR COMPOUNDER 07/28/2012 Office visit Kaylynn Mendez FORMULATOR COMPOUNDER 07/27/2012 Office visit David Joyner DO 07/20/2012 [facility] DO 07/13/2012 [facility] DO 07/11/2012 Office visit Kaylynn Mendez FORMULATOR COMPOUNDER 06/27/2012 [facility] Odell Tierney MD 06/21/2012 Office visit David Joyner DO 06/21/2012 Office visit Odell Tierney MD 06/20/2012 Office visit Brittni Yanez FORMULATOR COMPOUNDER 06/06/2012 Office visit Odell Tierney MD 05/03/2012 Office visit Kaylynn Mendez FORMULATOR COMPOUNDER 04/28/2012 Office visit Brittni Yanez FORMULATOR COMPOUNDER 04/11/2012 Office visit Kaylynn Mendez FORMULATOR COMPOUNDER 04/06/2012 [facility] John Hoskins MD 03/30/2012 Office visit Kaylynn Mendez FORMULATOR COMPOUNDER 03/15/2012 Office visit Kaylynn Mendez FORMULATOR COMPOUNDER 03/15/2012 Office visit Odell Tierney MD 02/09/2012 Office visit Kaylynn Mendez FORMULATOR COMPOUNDER 12/23/2011 Office visit Kaylynn Mendez FORMULATOR COMPOUNDER 11/02/2011 Office visit Kaylynn Walker FORMULATOR COMPOUNDER 10/14/2011 Office visit Kaylynn Mendez FORMULATOR COMPOUNDER 09/27/2011 Office visit Kaylynn Mendez FORMULATOR COMPOUNDER 08/19/2011 Hospital John Hoskins MD 08/18/2011 Hospital John Hoskins MD 08/18/2011 Office visit Kaylynn Mendez FORMULATOR COMPOUNDER 08/02/2011 Office visit Kaylynn Mendez FORMULATOR COMPOUNDER 07/08/2011 Office visit Kaylynn Mendez FORMULATOR COMPOUNDER 07/05/2011 Office visit Odell Tierney MD 06/15/2011 Office visit Kaylynn Mendez FORMULATOR COMPOUNDER 05/14/2011 Office visit Kaylynn Mendez FORMULATOR COMPOUNDER 05/11/2011 Office visit Odell Tierney MD 04/28/2011 Office visit Kaylynn Andrea FORMULATOR COMPOUNDER 03/02/2011 Office visit Chadd Norris DO 02/17/2011 [...]
--- OUTSIDE RECORDS SUMMARY | 2018-05-09 22:06 | XMS REPORT ---
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 kxdqjzhl-qfictuaqh-SY 3.5-10,000-1 mg/mL-unit/mL-% otic drops,suspension 201607/23/2016 instill 4 [...] 160-800 mg Oral Tablet 11/06/2009 11/17/2009 Dr. Hmamond Tylenol-Codeine #3 300-30 mg oral tablet 12/10/2009 [...] Reviewed 04/28/2011 12:00 AM Decadron 1 mg [facility]#[id number] (Jr) Reviewed 04/28/2011 12:00 AM Depo-Medrol 80 mg ND#[id number]-Hczexldv Reviewed 09/02/2015 12:00 AM Toradol 60 Mg ND#3400-2060-28 Reviewed 09/02/2015 12:00 AM Phenergan, Up to 50 Mg RHC Medicaid Reviewed 09/16/2015 12:00 AM Toradol 60 Mg ND#6800-4612-45 Reviewed 09/16/2015 12:00 AM Phenergan Up to 50 mg RHC Medicare Reviewed 05/11/2011 12:00 AM N BLOCK INJ OCCIPITAL Reviewed 05/11/2011 12:00 AM Kenalog Ap-[address]-20 ANNA Reviewed 11/13/2015 12:00 AM ASSAY OF [...] INJ SC/IM Reviewed 07/08/2011 12:00 AM Toradol,15mg ND#[id number], [place] Reviewed 07/08/2011 12:00 AM Phenergan 50 Mg Im [facility] 4419-6091-27 ALLIE [place] Reviewed 01/21/2016 12:00 AM ECG MONIT/REPRT UP TO 48 HRS Returned 08/02/2011 12:00 AM THER/PROPH/DIAG INJ SC/IM Reviewed 08/02/2011 12:00 AM Decadron 1 mg [facility]#[id number] (Jr) Reviewed 08/02/2011 12:00 AM Depo-Medrol 80 mg [facility]#[id number]-Owcnxvhm Reviewed 03/05/2016 12:00 AM COMPLETE CBC W/AUTO [...] Reviewed 09/27/2011 12:00 AM Depo-Medrol 80 mg [facility]#[id number]-Lepmpphx Reviewed 09/27/2011 12:00 AM Depo-Medrol 40 mg [facility]#[id number] Reviewed 07/06/2016 12:00 AM CHEST X-RAY 4/> [...] Reviewed 12/23/2011 12:00 AM Decadron 1 mg [facility]#[id number] (Jr) Reviewed 12/23/2011 12:00 AM Depo-Medrol 80 mg [facility]#[id number]-Mshqleuh Reviewed 11/02/2016 11:45 AM URINALYSIS AUTO W/O [...] Reviewed 02/09/2012 12:00 AM Decadron 1 mg [facility]#[id number] (Jr) Reviewed 02/09/2012 12:00 AM Depo-Medrol 80 mg [facility]#[id number]-Xmeevbep Reviewed 02/21/2017 12:00 AM CULTURE OTHR SPECIMN AEROBIC Returned 02/21/2017 12:00 AM INFLUENZA ASSAY W/OPTIC Returned 02/23/2017 12:00 AM COMPLETE CBC W/AUTO DIFF WBC Reviewed 02/23/2017 12:00 AM X-RAY EXAM OF KNEE 3 Returned 03/15/2012 12:00 AM N BLOCK INJ OCCIPITAL Reviewed 03/15/2012 12:00 AM Kenalog Yl-[address]-20 ANNA Reviewed 04/11/2012 12:00 AM COMPLETE CBC [...] 06/28/2017 12:00 AM MAMMOGRAM BOTH BREASTS Reviewed 06/20/2012 12:00 AM THER/PROPH/DIAG INJ SC/IM Reviewed 06/20/2012 12:00 AM Decadron, Per 1 Mg [facility]# [address]-28 Reviewed 06/20/2012 12:00 AM Depo-Medrol, Per 80 Mg [facility]#5836-2554-13 Reviewed 09/06/2012 12:00 AM N BLOCK INJ OCCIPITAL Reviewed 09/06/2012 12:00 AM Kenalog Jp-[address]-20 ANNA Reviewed 09/06/2012 12:00 AM X-RAY EXAM RIBS UNI 2 VIEWS Reviewed 09/26/2012 12:00 AM THER/PROPH/DIAG INJ SC/IM Reviewed 09/26/2012 12:00 AM Decadron, Per 1 Mg [facility]# [address]-57 Reviewed 09/26/2012 12:00 AM Depo-Medrol, Per 80 Mg [facility]#9842-9161-34 Reviewed 10/03/2012 12:00 AM URINALYSIS AUTO W/O SCOPE Reviewed 10/03/2012 12:00 AM THER/PROPH/DIAG INJ SC/IM Reviewed 10/03/2012 12:00 AM Toradol 60 Mg ND#0684-1425-75 Reviewed 10/03/2012 12:00 AM Phenergan, 25Mg [facility]#0414-0138-77 Reviewed 10/19/2012 12:00 AM N BLOCK INJ OCCIPITAL Reviewed 10/19/2012 12:00 AM Kenalog, Per 10 Mg [facility]#3039-7351-52 Reviewed 10/19/2012 12:00 AM Toradol 30 Mg [facility]#4108-5525-02 Reviewed 10/19/2012 12:00 AM THER/PROPH/DIAG INJ SC/IM Reviewed 10/31/2012 12:00 AM COMPLETE CBC W/AUTO DIFF WBC Reviewed 10/31/2012 12:00 AM COMPREHEN METABOLIC PANEL Reviewed 10/31/2012 12:00 AM LIPID PANEL Reviewed 10/31/2012 12:00 AM ELECTROCARDIOGRAM COMPLETE Reviewed 11/03/2012 12:[address] THORAX W/O & W/DYE Reviewed 11/08/2012 12:00 AM N BLOCK INJ OCCIPITAL Reviewed 11/08/2012 12:00 AM Kenalog Ly-[address]-20 ANNA Reviewed 11/27/2012 12:00 AM COMPLETE CBC [...] 01/25/2013 12:00 AM Decadron, Per 1 Mg [facility]# [address]-33 Reviewed 01/25/2013 12:00 AM Depo-Medrol, Per 80 Mg [facility]#0719-3084-66 Reviewed 01/26/2013 12:00 AM IMMUNOTHERAPY ONE INJECTION [...] 05/16/2013 12:00 AM Decadron, Per 1 Mg [facility]# [address]-63 Reviewed 05/16/2013 12:00 AM Depo-Medrol, Per 80 Mg [facility]#6416-5881-28 Reviewed 05/31/2013 12:00 AM IMMUNOTHERAPY INJECTIONS Reviewed 06/08/2013 12:00 AM IMMUNOTHERAPY INJECTIONS Reviewed 06/14/2013 12:00 AM IMMUNOTHERAPY INJECTIONS Reviewed 06/28/2013 12:00 AM IMMUNOTHERAPY INJECTIONS Reviewed 07/12/2013 12:00 AM X-RAY EXAM RIBS UNI 2 VIEWS Reviewed 07/18/2013 12:00 AM Toradol 60 Mg [facility]#6917-9650-54 Reviewed 07/18/2013 12:00 AM THER/PROPH/DIAG INJ SC/IM Reviewed 08/23/2013 12:00 AM COMPLETE CBC W/AUTO DIFF WBC Reviewed 08/23/2013 12:00 AM COMPREHEN METABOLIC PANEL Reviewed 08/23/2013 12:00 AM LIPID PANEL Reviewed 08/31/2013 12:00 AM X-RAY EXAM OF LOWER LEG Reviewed 09/04/2013 12:00 AM IMMUNOTHERAPY INJECTIONS Reviewed 09/14/2013 12:00 AM THER/PROPH/DIAG INJ SC/IM Reviewed 09/14/2013 12:00 AM Decadron, Per 1 Mg [facility]# [address]-51 Reviewed 09/14/2013 12:00 AM Depo-Medrol, Per 80 Mg [facility]#5676-4434-93 Reviewed 09/20/2013 12:00 AM IMMUNOTHERAPY INJECTIONS Reviewed [...] INJ OCCIPITAL Reviewed 12/10/2009 12:00 AM Kenalog La-[address]-20 ANNA Reviewed 12/16/2009 12:00 AM HIV-1ANTIBODY Reviewed 12/16/2009 12:00 AM COMPLETE CBC W/AUTO DIFF WBC Reviewed 12/16/2009 12:00 AM METABOLIC PANEL TOTAL CA Reviewed 12/16/2009 12:00 AM Type and screen Reviewed 12/16/2009 12:00 AM PROTHROMBIN TIME Reviewed 12/16/2009 12:00 AM THROMBOPLASTIN TIME PARTIAL Reviewed 03/18/2010 12:00 AM DRAIN/INJ JOINT/BURSA W/O US Reviewed 03/18/2010 12:00 AM Kenalog Nq-[address]-20 ANNA Reviewed 11/21/2013 12:00 AM RADEX HAND MINIMUM 3 VIEWS Reviewed 06/03/2010 12:00 AM INJ TRIGGER POINT 1/2 MUSCL Reviewed 06/03/2010 12:00 AM Kenalog per 10Mg [facility]#[address]-39(Niall) Reviewed 12/05/2013 12:00 AM COMPLETE CBC W/AUTO [...] 07/23/2010 12:00 AM Kenalog per 10Mg [facility]#[address]-40(Niall) Reviewed 2014 12:00 AM COMPLETE CBC W/AUTO [...] INJ OCCIPITAL Reviewed 10/01/2010 12:00 AM Kenalog Ir-[address]-20 ANNA Reviewed 07/25/2014 12:00 AM THER/PROPH/DIAG INJ [...] 141 Influenza 04/24/2014 sanofi pasteur PMC Fluzone [id number] Intramuscular Left Upper Arm 02/27/2014 01/15/2014 141 Influenza 02/13/2015 sanofi pasteur PMC Fluzone [id number] Intramuscular Left Deltoid 02/13/2015 01/03/2015 140 Tdap 06/06/2015 [employer] SKB BOOSTRIX [id number] Intramuscular Left Deltoid 06/06/2015 07/23/2014 115 Influenza 03/18/2016 sanofi pasteur PMC Fluzone [id number] Intramuscular Left Deltoid 03/17/2016 01/03/2015 141 History [...] mellitus with hyperglycemia 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 Jun 24 2017 [...] Number Start Date Medicare RHC Medicare RHC [id number] N/A [facility] - RHC - Community Plan of [facility] RHC Comm [id number] N/A Medicare Part A Medicare - Lab/Xray [id number] N/A Medicare Part B Medicare Of [place] [id number] Monday, February 28, 2000 [place] [facility] [place] [facility] [place] [id number] Tuesday, November 10, 2009 Medicare Part A Medicare Part A [id number] N/A [place] [facility] - [place] [place] [facility] - RHC [id number] [facility] Plan of [facility] Comm Plan of [id number] Wednesday, May 30, 2012 History of Encounters Visit Date Visit Type Provider 06/28/2017 Office visit 06/28/2017 Office visit Lena El EXTERMINATION SUPERVISOR 06/24/2017 Office visit Sundeep Russell EXTERMINATION SUPERVISOR 06/02/2017 Office visit Heena Dumont MD 04/20/2017 Office visit 04/20/2017 Office visit 04/20/2017 Office visit 04/20/2017 Office visit Heena Dumont MD 03/22/2017 Office visit Heena Dumont MD 03/05/2017 Office visit Lena Chaves EXTERMINATION SUPERVISOR 02/23/2017 Office visit Symone Marie EXTERMINATION SUPERVISOR 02/21/2017 Office visit Heena Dumont MD 02/15/2017 Office visit Heena Dumont MD 02/02/2017 Office visit Heena Dumont MD 01/07/2017 Office visit Riccardo Cardoza MD 01/03/2017 Office visit Heena Dumont MD 12/15/2016 Office visit Kaylynn Mendez EXTERMINATION SUPERVISOR 12/02/2016 Office visit Heena Dumont MD 11/23/2016 [facility] John Hoskins MD 11/23/2016 Office visit Kaylynn Mendez EXTERMINATION SUPERVISOR 11/17/2016 Office visit Kaylynn Mendez EXTERMINATION SUPERVISOR 11/05/2016 Office visit Riccardo Cardoza MD 11/02/2016 Office visit Heena Dumont MD 10/06/2016 Office visit Kaylynn Mendez EXTERMINATION SUPERVISOR 09/22/2016 Office visit Heena Dumont MD 09/09/2016 Office visit Kaylynn Mendez EXTERMINATION SUPERVISOR 08/27/2016 Office visit Riccardo Cardoza MD 08/26/2016 Office visit Heena Dumont MD 07/09/2016 Office visit Riccardo Cardoza MD 07/06/2016 Office visit Heena Dumont MD 06/18/2016 Office visit Kaylynn Mendez EXTERMINATION SUPERVISOR 06/07/2016 Office visit Sundeep Russell EXTERMINATION SUPERVISOR 06/04/2016 Office visit Heena Dumont MD 05/13/2016 Office visit Heena Dumont MD 05/03/2016 Office visit Heena Dumont MD 04/26/2016 Office visit Kaylynn Mendez EXTERMINATION SUPERVISOR 04/14/2016 Office visit Heena Dumont MD 04/13/2016 Office visit Kaylynn Mendez EXTERMINATION SUPERVISOR 04/02/2016 Office visit Lena El EXTERMINATION SUPERVISOR 04/02/2016 Office visit Heena Dumont MD 03/26/2016 Office visit Yesica Falcon EXTERMINATION SUPERVISOR 03/17/2016 Office visit Heena Dumont MD 03/05/2016 Office visit Kaylynn Mendez EXTERMINATION SUPERVISOR 02/16/2016 Office visit Heena Dumont MD 02/14/2016 Office visit Na Jones EXTERMINATION SUPERVISOR 01/16/2016 Office visit Heena Dumont MD 12/16/2015 Office visit Heena Dumont MD 11/24/2015 Office visit Kaylynn Mendez EXTERMINATION SUPERVISOR 11/18/2015 Office visit Heena Dumont MD 11/03/2015 Office visit Sundeep Russell EXTERMINATION SUPERVISOR 10/20/2015 Office visit Kaylynn Mendez EXTERMINATION SUPERVISOR 09/23/2015 Office visit Kaylynn Mendez EXTERMINATION SUPERVISOR 09/16/[address] Pepe Figueroa MD 09/02/2015 Office visit Kaylynn Mendez EXTERMINATION SUPERVISOR 09/01/2015 Office visit Kaylynn Mendez EXTERMINATION SUPERVISOR 07/30/2015 Office visit Heena Dumont MD 07/15/2015 Office visit Kaylynn Mendez EXTERMINATION SUPERVISOR 07/04/2015 Office visit Heena Dumont MD 06/06/2015 Office visit Heena Dumont MD 06/06/2015 Office visit Kaylynn Mendez EXTERMINATION SUPERVISOR 06/02/2015 Office visit Kaylynn Walker EXTERMINATION SUPERVISOR 05/26/2015 Office visit Kaylynn Walker EXTERMINATION SUPERVISOR 05/20/2015 Office visit Kaylynn Walker EXTERMINATION SUPERVISOR 05/08/2015 Office visit Heena Dumont MD 05/06/2015 Office visit Kaylynn Mendez EXTERMINATION SUPERVISOR 04/29/2015 Office visit Kaylynn Walker EXTERMINATION SUPERVISOR 03/27/2015 Voided Brittni Yanez EXTERMINATION SUPERVISOR 03/21/2015 Office visit Heena Dumont MD 03/12/2015 Office visit Kaylynn Mendez EXTERMINATION SUPERVISOR 02/26/2015 Office visit Brittni Yanez EXTERMINATION SUPERVISOR 02/13/2015 Office visit Heena Dumont MD 01/15/2015 Office visit Brittni Yanez EXTERMINATION SUPERVISOR 01/13/2015 Office visit Heena Dumont MD 01/08/[address] Carol Fowler MD 01/01/2015 Office visit Brittni Yanez EXTERMINATION SUPERVISOR 12/13/2014 Office visit Heena Dumont MD 11/27/2014 Office visit Kaylynn Mendez EXTERMINATION SUPERVISOR 11/14/2014 Office visit Heena Dumont MD 10/18/2014 Office visit Heena Dumont MD 10/17/2014 [facility] John Hoskins MD 10/09/2014 Office visit Heena Dumont MD 09/25/2014 Office visit Heena Dumont MD 09/17/2014 Office visit Kaylynn Mendez EXTERMINATION SUPERVISOR 09/04/2014 Office visit Heena Dumont MD 08/28/2014 Office visit Kaylynn Mendez EXTERMINATION SUPERVISOR 08/23/2014 [facility] Eliseo Hoskins MD 08/01/2014 Office visit Kaylynn Mendez EXTERMINATION SUPERVISOR 07/29/2014 Office visit Heena Dumont MD 07/25/2014 Nurse visit Heena Dumont MD 07/17/2014 Office visit Kaylynn Mendez EXTERMINATION SUPERVISOR 07/11/2014 Office visit Heena Dumont MD 07/01/2014 Office visit Heena Dumont MD 06/25/2014 Office visit Kaylynn Mendez EXTERMINATION SUPERVISOR 06/12/2014 Office visit Kaylynn Mendez EXTERMINATION SUPERVISOR 06/06/2014 Office visit Kaylynn Mendez EXTERMINATION SUPERVISOR 05/27/2014 Office visit Heena Dumont MD 04/20/2014 Office visit Yesica Falcon EXTERMINATION SUPERVISOR 03/29/2014 Office visit Na Jones EXTERMINATION SUPERVISOR 03/15/2014 Office visit Heena Dumont MD 2014 Office visit Heena Dumont MD 2014 [facility] John Hoskins MD 02/27/2014 Nurse visit Heena Dumont MD 02/13/2014 Office visit Lena El EXTERMINATION SUPERVISOR 02/07/2014 Office visit Heena Dumont MD 02/03/2014 Office visit Na Jones EXTERMINATION SUPERVISOR 01/30/2014 Office visit Kaylynn Mendez EXTERMINATION SUPERVISOR 01/24/2014 Office visit Sundeep Russell EXTERMINATION SUPERVISOR 01/16/2014 Office visit Kaylynn Mendez EXTERMINATION SUPERVISOR 01/10/2014 Nurse visit Kaylynn Mendez EXTERMINATION SUPERVISOR 01/08/2014 Office visit Kaylynn Mendez EXTERMINATION SUPERVISOR 12/05/2013 Office visit Kaylynn Walker EXTERMINATION SUPERVISOR 11/21/2013 Office visit Kaylynn Walker EXTERMINATION SUPERVISOR 10/23/2013 Office visit Brittni Yanez EXTERMINATION SUPERVISOR 10/17/2013 Nurse visit Heena Dumont MD 10/12/2013 Office visit Kaylynn Walker EXTERMINATION SUPERVISOR 10/02/2013 Office visit Heena Dumont MD 09/20/2013 Nurse visit Kaylynn Walker EXTERMINATION SUPERVISOR 09/20/2013 Voided Heena Dumont MD 09/14/2013 Office visit Kaylynn Walker EXTERMINATION SUPERVISOR 09/05/2013 Office visit Sundeep Russell EXTERMINATION SUPERVISOR 09/04/2013 Nurse visit Kaylynn Walker EXTERMINATION SUPERVISOR 08/31/2013 Office visit Kaylynn Walker EXTERMINATION SUPERVISOR 08/23/2013 Office visit Heena Dumont MD 08/10/2013 Office visit Kaylynn Walker EXTERMINATION SUPERVISOR 07/25/2013 Office visit Kaylynn Walker EXTERMINATION SUPERVISOR 07/18/2013 Office visit Kaylynn Walker EXTERMINATION SUPERVISOR 07/12/2013 Office visit Kaylynn Walker EXTERMINATION SUPERVISOR 06/28/2013 Nurse visit Kaylynn Walker EXTERMINATION SUPERVISOR 06/14/2013 Nurse visit Kaylynn Walker EXTERMINATION SUPERVISOR 06/08/2013 Nurse visit Kaylynn Mendez EXTERMINATION SUPERVISOR 05/31/2013 Nurse visit Chadd Norris DO 05/18/2013 Office visit Terese Davidson MD 05/16/2013 Office visit Kaylynn Mendez EXTERMINATION SUPERVISOR 05/09/2013 Office visit Kaylynn Mendez EXTERMINATION SUPERVISOR 04/29/2013 [facility] John Hoskins MD 04/25/2013 Nurse visit Kaylynn Mendez EXTERMINATION SUPERVISOR 04/17/2013 Office visit Kaylynn Mendez EXTERMINATION SUPERVISOR 04/03/2013 Nurse visit Kaylynn Mendez EXTERMINATION SUPERVISOR 04/03/2013 Office visit Terese Davidson MD 03/28/2013 Office visit Sundeep Russell EXTERMINATION SUPERVISOR 03/21/2013 Office visit Kaylynn Mendez EXTERMINATION SUPERVISOR 03/20/2013 Office visit Terese Davidson MD 03/14/2013 Nurse visit Kaylynn Mendez EXTERMINATION SUPERVISOR 03/05/2013 Nurse visit Kaylynn Mendez EXTERMINATION SUPERVISOR 02/19/2013 Office visit Terese Davidson MD 02/16/2013 Nurse visit Kaylynn Mendez EXTERMINATION SUPERVISOR 02/09/2013 Office visit Sundeep Russell EXTERMINATION SUPERVISOR 02/08/2013 Nurse visit Kaylynn Walker EXTERMINATION SUPERVISOR 02/01/2013 Nurse visit Kaylynn Walker EXTERMINATION SUPERVISOR 01/26/2013 Nurse visit Sabrina Mendez MENTAL HEALTH CLINICIAN 01/25/2013 Office visit Kaylynn Mendez EXTERMINATION SUPERVISOR 01/22/2013 Office visit Yoan Castaneda MD 01/18/2013 Nurse visit Kaylynn Mendez EXTERMINATION SUPERVISOR 01/11/2013 Nurse visit Kaylynn Walker EXTERMINATION SUPERVISOR 01/05/2013 Nurse visit Kaylynn Walker EXTERMINATION SUPERVISOR 12/29/2012 Office visit Kaylynn Walker EXTERMINATION SUPERVISOR 11/27/2012 Office visit Kaylynn Walker EXTERMINATION SUPERVISOR 11/08/2012 Office visit Odell Tierney MD 11/08/2012 Voided Odell Tierney MD 11/07/2012 Office visit Kaylynn Walker EXTERMINATION SUPERVISOR 10/31/2012 [facility] John Hoskins MD 10/31/2012 Office visit Kaylynn Walker EXTERMINATION SUPERVISOR 10/19/2012 Office visit Genoveva Ayala EXTERMINATION SUPERVISOR 10/10/2012 Office visit Kaylynn Walker EXTERMINATION SUPERVISOR 10/03/2012 Office visit Kaylynn Walker EXTERMINATION SUPERVISOR 09/26/2012 Office visit Kaylynn Walker EXTERMINATION SUPERVISOR 09/06/2012 Office visit Kaylynn Walker EXTERMINATION SUPERVISOR 09/06/2012 Office visit Odell Tierney MD 08/31/2012 Voided Kaylynn Mendez EXTERMINATION SUPERVISOR 07/28/2012 Office visit Kaylynn Walker EXTERMINATION SUPERVISOR 07/27/2012 Office visit David Joyner DO 07/20/2012 [facility] David Ar DO 07/13/2012 [facility] 07/11/2012 Office visit Kaylynn Mendez EXTERMINATION SUPERVISOR 06/27/2012 [facility] Odell Tierney MD 06/21/2012 Office visit David Joyner DO 06/21/2012 Office visit Odell Tierney MD 06/20/2012 Office visit Brittni Yanez EXTERMINATION SUPERVISOR 06/06/2012 Office visit Odell Tierney MD 05/03/2012 Office visit Kaylynn Mendez EXTERMINATION SUPERVISOR 04/28/2012 Office visit Brittni Yanez EXTERMINATION SUPERVISOR 04/11/2012 Office visit Kaylynn Mendez EXTERMINATION SUPERVISOR 04/06/2012 [facility] John Hoskins MD 03/30/2012 Office visit Kaylynn Walker EXTERMINATION SUPERVISOR 03/15/2012 Office visit Kaylynn Mendez EXTERMINATION SUPERVISOR 03/15/2012 Office visit Odell Tierney MD 02/09/2012 Office visit Kaylynn Mendez EXTERMINATION SUPERVISOR 12/23/2011 Office visit Kaylynn Walker EXTERMINATION SUPERVISOR 11/02/2011 Office visit Kaylynn Walker EXTERMINATION SUPERVISOR 10/14/2011 Office visit Kaylynn Walker EXTERMINATION SUPERVISOR 09/27/2011 Office visit Kaylynn Walker EXTERMINATION SUPERVISOR 08/19/2011 Hospital John Hoskins MD 08/18/2011 [facility] John Hoskins MD 08/18/2011 Office visit Kaylynn Walker EXTERMINATION SUPERVISOR 08/02/2011 Office visit Kaylynn Walker EXTERMINATION SUPERVISOR 07/08/2011 Office visit Kaylynn Walker EXTERMINATION SUPERVISOR 07/05/2011 Office visit Odell Tierney MD 06/15/2011 Office visit Kaylynn Andrea EXTERMINATION SUPERVISOR 05/14/2011 Office visit Kaylynn Mendez EXTERMINATION SUPERVISOR 05/11/2011 Office visit Odell Tierney MD 04/28/2011 Office visit Kaylynn Mendez EXTERMINATION SUPERVISOR 03/02/2011 Office visit Chadd Norris DO 02/17/2011 [...]
--- OUTSIDE RECORDS SUMMARY | 2018-05-09 22:11 | XMS REPORT ---
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 Singular Tqeuila Lancets 33 gauge miscellaneous misc 01/21/2016 use as directed [employer] miscellaneous strip 01/21/2016 07/19/2016 Test 2x daily, [...] 08/27/2014 use as directed for 99 days Balm 5-325 mg oral tablet 06/17/2014 06/27/2014 take [...] a day as needed for 30 days qboputrk-rbjgzutlt-SV 3.5-10,000-1 mg/mL-unit/mL-% otic drops,suspension 201401/08/2015 instill 4 [...] Reviewed 04/28/2011 12:00 AM Decadron 1 mg [facility]#[id number] (Jr) Reviewed 04/28/2011 12:00 AM Depo-Medrol 80 mg ND#[id number]-Bkxblewy Reviewed 09/02/2015 12:00 AM Toradol 60 Mg ND#6896-0753-16 Reviewed 09/02/2015 12:00 AM Phenergan, Up to 50 Mg R[facility] Medicaid Reviewed 09/16/2015 12:00 AM Toradol 60 Mg ND#3240-3597-32 Reviewed 09/16/2015 12:00 AM Phenergan Up to 50 mg RHC Medicare Reviewed 05/11/2011 12:00 AM N BLOCK INJ OCCIPITAL Reviewed 05/11/2011 12:00 AM Kenalog Gc-[address]-20 ANNA Reviewed 11/13/2015 12:00 AM ASSAY OF [...] SC/IM Reviewed 07/08/2011 12:00 AM Toradol,15mg [facility]#[id number], [place] Reviewed 07/08/2011 12:00 AM Phenergan 50 Mg Im [facility] 3456-3948-29 FP [place] Reviewed 01/21/2016 12:00 AM ECG MONIT/REPRT UP TO 48 HRS Returned 08/02/2011 12:00 AM THER/PROPH/DIAG INJ SC/IM Reviewed 08/02/2011 12:00 AM Decadron 1 mg [facility]#[id number] (Jr) Reviewed 08/02/2011 12:00 AM Depo-Medrol 80 mg [facility]#[id number]-Nktfdzgo Reviewed 03/05/2016 12:00 AM COMPLETE CBC W/AUTO DIFF WBC Returned 03/05/2016 12:00 AM STREP A ASSAY W/OPTIC Returned 03/05/2016 12:00 AM C-REACTIVE PROTEIN Returned 03/18/2016 12:00 AM [facility] MEDICARE - flu vaccine administration Reviewed 03/18/2016 12:00 AM INFLUENZA VACCINE QUADRIVALENT 3 YRS PLUS IM Reviewed 09/27/2011 12:00 AM THER/PROPH/DIAG INJ SC/IM Reviewed 09/27/2011 12:00 AM Depo-Medrol 80 mg [facility]#[id number]-Ygopenho Reviewed 10/14/2011 12:00 AM X-RAY EXAM OF ABDOMEN Returned 10/14/2011 12:00 AM URINALYSIS AUTO W/O SCOPE Reviewed 12/23/2011 12:00 AM THER/PROPH/DIAG INJ SC/IM Reviewed 12/23/2011 12:00 AM Decadron 1 mg [facility]#[id number] (Jr) Reviewed 12/23/2011 12:00 AM Depo-Medrol 80 mg [facility]#[id number]-Bzcpkkvp Reviewed 02/09/2012 12:00 AM THER/PROPH/DIAG INJ SC/IM Reviewed 02/09/2012 12:00 AM Decadron 1 mg [facility]#[id number] (Jr) Reviewed 02/09/2012 12:00 AM Depo-Medrol 80 mg [facility]#[id number]-Igwqjmws Reviewed 03/15/2012 12:00 AM N BLOCK INJ OCCIPITAL Reviewed 03/15/2012 12:00 AM Kenalog Pk-[address]-20 ANNA Reviewed 04/11/2012 12:00 AM COMPLETE CBC W/AUTO DIFF WBC Returned 04/11/2012 12:00 AM COMPREHEN METABOLIC PANEL Returned 04/11/2012 12:00 AM LIPID PANEL Returned 04/11/2012 12:00 AM ASSAY THYROID STIM HORMONE Returned 06/20/2012 12:00 AM THER/PROPH/DIAG INJ SC/IM Reviewed 06/20/2012 12:00 AM Decadron, Per 1 Mg ND# [address]-32 Reviewed 06/20/2012 12:00 AM Depo-Medrol, Per 80 Mg ND#7801-7063-37 Reviewed 09/06/2012 12:00 AM N BLOCK INJ OCCIPITAL Reviewed 09/06/2012 12:00 AM Kenalog Ig-[address]-20 ANNA Reviewed 09/06/2012 12:00 AM X-RAY EXAM RIBS UNI 2 VIEWS Returned 09/26/2012 12:00 AM THER/PROPH/DIAG INJ SC/IM Reviewed 09/26/2012 12:00 AM Decadron, Per 1 Mg ND# [address]-01 Reviewed 09/26/2012 12:00 AM Depo-Medrol, Per 80 Mg ND#4815-9154-20 Reviewed 10/03/2012 12:00 AM URINALYSIS AUTO W/O SCOPE Reviewed 10/03/2012 12:00 AM THER/PROPH/DIAG INJ SC/IM Reviewed 10/03/2012 12:00 AM Toradol 60 Mg ND#4942-6020-31 Reviewed 10/03/2012 12:00 AM Phenergan, 25Mg ND#5461-2896-56 Reviewed 10/19/2012 12:00 AM N BLOCK INJ OCCIPITAL Reviewed 10/19/2012 12:00 AM Kenalog, Per 10 Mg [facility]#5357-7911-18 Reviewed 10/19/2012 12:00 AM Toradol 30 Mg [facility]#3420-2422-66 Reviewed 10/19/2012 12:00 AM THER/PROPH/DIAG INJ SC/IM Reviewed 10/31/2012 12:00 AM COMPLETE CBC W/AUTO DIFF WBC Returned 10/31/2012 12:00 AM COMPREHEN METABOLIC PANEL Returned 10/31/2012 12:00 AM LIPID PANEL Returned 11/03/2012 12:[address] THORAX W/O & W/DYE Returned 11/08/2012 12:00 AM N BLOCK INJ OCCIPITAL Reviewed 11/08/2012 12:00 AM Kenalog Kk-[address]-20 ANNA Reviewed 11/27/2012 12:00 AM COMPLETE CBC [...] 12:00 AM Decadron, Per 1 Mg [facility]# [address]-38 Reviewed 01/25/2013 12:00 AM Depo-Medrol, Per 80 Mg [facility]#2899-2514-11 Reviewed 01/26/2013 12:00 AM IMMUNOTHERAPY INJECTIONS Returned [...] 12:00 AM Decadron, Per 1 Mg [facility]# [address]-94 Reviewed 05/16/2013 12:00 AM Depo-Medrol, Per 80 Mg [facility]#4172-1266-63 Reviewed 05/31/2013 12:00 AM IMMUNOTHERAPY INJECTIONS Reviewed 06/08/2013 12:00 AM IMMUNOTHERAPY INJECTIONS Reviewed 06/14/2013 12:00 AM IMMUNOTHERAPY INJECTIONS Reviewed 06/28/2013 12:00 AM IMMUNOTHERAPY INJECTIONS Reviewed 07/12/2013 12:00 AM X-RAY EXAM RIBS UNI 2 VIEWS Returned 07/18/2013 12:00 AM Toradol 60 Mg [facility]#1228-5766-21 Reviewed 07/18/2013 12:00 AM THER/PROPH/DIAG INJ SC/IM Reviewed 08/23/2013 12:00 AM COMPLETE CBC W/AUTO DIFF WBC Reviewed 08/23/2013 12:00 AM COMPREHEN METABOLIC PANEL Reviewed 08/23/2013 12:00 AM LIPID PANEL Reviewed 08/31/2013 12:00 AM X-RAY EXAM OF LOWER LEG Returned 09/04/2013 12:00 AM IMMUNOTHERAPY INJECTIONS Reviewed 09/14/2013 12:00 AM THER/PROPH/DIAG INJ SC/IM Reviewed 09/14/2013 12:00 AM Decadron, Per 1 Mg [facility]# [address]-62 Reviewed 09/14/2013 12:00 AM Depo-Medrol, Per 80 Mg [facility]#6087-9317-80 Reviewed 09/20/2013 12:00 AM IMMUNOTHERAPY INJECTIONS Reviewed [...] INJ OCCIPITAL Reviewed 12/10/2009 12:00 AM Kenalog Id-[address]-20 ANNA Reviewed 12/16/2009 12:00 AM HIV-1ANTIBODY Reviewed 12/16/2009 12:00 AM COMPLETE CBC W/AUTO DIFF WBC Reviewed 12/16/2009 12:00 AM METABOLIC PANEL TOTAL CA Reviewed 12/16/2009 12:00 AM Type and screen Reviewed 12/16/2009 12:00 AM PROTHROMBIN TIME Reviewed 12/16/2009 12:00 AM THROMBOPLASTIN TIME PARTIAL Reviewed 03/18/2010 12:00 AM DRAIN/INJ JOINT/BURSA W/O US Reviewed 03/18/2010 12:00 AM Kenalog Cv-[address]-20 ANNA Reviewed 11/21/2013 12:00 AM RADEX HAND MINIMUM 3 VIEWS Returned 06/03/2010 12:00 AM INJ TRIGGER POINT 1/2 MUSCL Reviewed 06/03/2010 12:00 AM Kenalog per 10Mg [facility]#[address]-43(Niall) Reviewed 12/05/2013 12:00 AM COMPLETE CBC W/AUTO [...] 07/23/2010 12:00 AM Kenalog per 10Mg Im-[facility]#[address]-22(Niall) Reviewed 2014 12:00 AM COMPLETE CBC W/AUTO [...] INJ OCCIPITAL Reviewed 10/01/2010 12:00 AM Quentin Gi-[address]-20 ANNA Reviewed 07/25/2014 12:00 AM THER/PROPH/DIAG INJ [...] <0.80 RMSF , IgG, EIA Negative [facility] Spotted Fever,IgM 0.51 E. chaffeensis [...] 141 Influenza 04/24/2014 sanofi pasteur [employer]C Fluzone [id number] Intramuscular Left Upper Arm 02/27/2014 01/15/2014 141 Influenza 02/13/2015 sanofi paste[employer]C Fluzone [id number] Intramuscular Left Deltoid 02/13/2015 01/03/2015 140 Tdap 06/06/2015 [employer] BOOSTRIX [id number] Intramuscular Left Deltoid 06/06/2015 07/23/2014 115 Influenza 03/18/2016 [facility] Fluzone [id number] Intramuscular Left Deltoid 03/17/2016 01/03/2015 141 History [...] of skin sensation Feb 16 2016 2:38PM Payers Insurance Name Company Name Plan Name Plan Number Policy Number Policy Group Number Start Date Medicare Part A Medicare RHC [id number] N/A [facility] RHC Comm [id number] N/A Medicare Part A Medicare - Lab/Xray [id number] N/A Medicare Part B Medicare Of [place] [id number] Monday, February 28, 2000 [place] [employer] [place] [employer] [id number] Tuesday, November 10, 2009 Medicare Part A Medicare Part A [id number] N/A [place] [employer] [place] [employer] [place] [id number] May [facility] Comm Plan of [id number] Wednesday, May 30, 2012 History of Encounters Visit Date Visit Type Provider 04/02/2016 Office visit Lena El COMMUNICATIONS PROFESSIONAL 04/02/2016 Office visit Heena Dumont MD 03/26/2016 Office visit Yesica Falcon COMMUNICATIONS PROFESSIONAL 03/17/2016 Office visit Heena Dumont MD 03/05/2016 Office visit Kaylynn Mendez COMMUNICATIONS PROFESSIONAL 02/16/2016 Office visit Heena Dumont MD 02/14/2016 Office visit Na Jones COMMUNICATIONS PROFESSIONAL 01/16/2016 Office visit Heena Dumont MD 12/16/2015 Office visit Heena Dumont MD 11/24/2015 Office visit Kaylynn Mendez COMMUNICATIONS PROFESSIONAL 11/18/2015 Office visit Heena Dumont MD 11/03/2015 Office visit Sundeep Russell COMMUNICATIONS PROFESSIONAL 10/20/2015 Office visit Kaylynn Mendez COMMUNICATIONS PROFESSIONAL 09/23/2015 Office visit Kaylynn Mendez COMMUNICATIONS PROFESSIONAL 09/16/[address] Pepe Figueroa MD 09/02/2015 Office visit Kaylynn Walker COMMUNICATIONS PROFESSIONAL 09/01/2015 Office visit Kaylynn Walker COMMUNICATIONS PROFESSIONAL 07/30/2015 Office visit Heena Dumont MD 07/15/2015 Office visit Kaylynn Walker COMMUNICATIONS PROFESSIONAL 07/04/2015 Office visit Heena Dumont MD 06/06/2015 Office visit Heena Dumont MD 06/06/2015 Office visit Kaylynn Walker COMMUNICATIONS PROFESSIONAL 06/02/2015 Office visit Kaylynn Walker COMMUNICATIONS PROFESSIONAL 05/26/2015 Office visit Kaylynn Walker COMMUNICATIONS PROFESSIONAL 05/20/2015 Office visit Kaylynn Walker COMMUNICATIONS PROFESSIONAL 05/08/2015 Office visit Heena Dumont MD 05/06/2015 Office visit Kaylynn Walker COMMUNICATIONS PROFESSIONAL 04/29/2015 Office visit Kaylynn Walker COMMUNICATIONS PROFESSIONAL 03/27/2015 Voided Brittni Yanez COMMUNICATIONS PROFESSIONAL 03/21/2015 Office visit Heena Dumont MD 03/12/2015 Office visit Kaylynn Mendez COMMUNICATIONS PROFESSIONAL 02/26/2015 Office visit Brittni Yanez COMMUNICATIONS PROFESSIONAL 02/13/2015 Office visit Heena Dumont MD 01/15/2015 Office visit Brittni Yanez COMMUNICATIONS PROFESSIONAL 01/13/2015 Office visit Heena Dumont MD 01/08/[address] Carol Fowler MD 01/01/2015 Office visit Brittni Yanez COMMUNICATIONS PROFESSIONAL 12/13/2014 Office visit Heena Dumont MD 11/27/2014 Office visit Kaylynn Mendez COMMUNICATIONS PROFESSIONAL 11/14/2014 Office visit Heena Dumont MD 10/18/2014 Office visit Heena Dumont MD 10/17/2014 [facility] MD 10/09/2014 Office visit Heena Dumont MD 09/25/2014 Office visit Heena Dumont MD 09/17/2014 Office visit Kaylynn Mendez COMMUNICATIONS PROFESSIONAL 09/04/2014 Office visit Heena Dumont MD 08/28/2014 Office visit Kaylynn Mendez COMMUNICATIONS PROFESSIONAL 08/23/2014 [facility] MD 08/01/2014 Office visit Kaylynn Mendez COMMUNICATIONS PROFESSIONAL 07/29/2014 Office visit Heena Dumont MD 07/25/2014 Nurse visit Heena Dumont MD 07/17/2014 Office visit Kaylynn Mendez COMMUNICATIONS PROFESSIONAL 07/11/2014 Office visit Heena Dumont MD 07/01/2014 Office visit Heena Dumont MD 06/25/2014 Office visit Kaylynn Walker COMMUNICATIONS PROFESSIONAL 06/12/2014 Office visit Kaylynn Mendez COMMUNICATIONS PROFESSIONAL 06/06/2014 Office visit Kaylynn Mendez COMMUNICATIONS PROFESSIONAL 05/27/2014 Office visit Heena Dumont MD 04/20/2014 Office visit Yesica Falcon COMMUNICATIONS PROFESSIONAL 03/29/2014 Office visit Na Jones COMMUNICATIONS PROFESSIONAL 03/15/2014 Office visit Heena Dumont MD 2014 Office visit Heena Dumont MD 2014 [facility] John Hoskins MD 02/27/2014 Nurse visit Heena Dumont MD 02/13/2014 Office visit Lena El COMMUNICATIONS PROFESSIONAL 02/07/2014 Office visit Heena Dumont MD 02/03/2014 Office visit Na Jones COMMUNICATIONS PROFESSIONAL 01/30/2014 Office visit Kaylynn Mendez COMMUNICATIONS PROFESSIONAL 01/24/2014 Office visit Sundeep Russell COMMUNICATIONS PROFESSIONAL 01/16/2014 Office visit Kaylynn Walker COMMUNICATIONS PROFESSIONAL 01/10/2014 Nurse visit Kaylynn Walker COMMUNICATIONS PROFESSIONAL 01/08/2014 Office visit Kaylynn Walker COMMUNICATIONS PROFESSIONAL 12/05/2013 Office visit Kaylynn Walker COMMUNICATIONS PROFESSIONAL 11/21/2013 Office visit Kaylynn Walker COMMUNICATIONS PROFESSIONAL 10/23/2013 Office visit Brittni Yanez COMMUNICATIONS PROFESSIONAL 10/17/2013 Nurse visit Heena Dumont MD 10/12/2013 Office visit Kaylynn Mendez COMMUNICATIONS PROFESSIONAL 10/02/2013 Office visit Heena Dumont MD 09/20/2013 Nurse visit Kaylynn Mendez COMMUNICATIONS PROFESSIONAL 09/20/2013 Voided Heena Dumont MD 09/14/2013 Office visit Kaylynn Walker COMMUNICATIONS PROFESSIONAL 09/05/2013 Office visit Sundeep Russell COMMUNICATIONS PROFESSIONAL 09/04/2013 Nurse visit Kaylynn Walker COMMUNICATIONS PROFESSIONAL 08/31/2013 Office visit Kaylynn Walker COMMUNICATIONS PROFESSIONAL 08/23/2013 Office visit Heena Dumont MD 08/10/2013 Office visit Kaylynn Walker COMMUNICATIONS PROFESSIONAL 07/25/2013 Office visit Kaylynn Walker COMMUNICATIONS PROFESSIONAL 07/18/2013 Office visit Kaylynn Walker COMMUNICATIONS PROFESSIONAL 07/12/2013 Office visit Kaylynn Walker COMMUNICATIONS PROFESSIONAL 06/28/2013 Nurse visit Kaylynn Walker COMMUNICATIONS PROFESSIONAL 06/14/2013 Nurse visit Kaylynn Walker COMMUNICATIONS PROFESSIONAL 06/08/2013 Nurse visit Kaylynn Walker COMMUNICATIONS PROFESSIONAL 05/31/2013 Nurse visit Chadd Norris DO 05/18/2013 Office visit Terese Davidson MD 05/16/2013 Office visit Kaylynn Walker COMMUNICATIONS PROFESSIONAL 05/09/2013 Office visit Kaylynn Walker COMMUNICATIONS PROFESSIONAL 04/29/2013 [facility] John Hoskins MD 04/25/2013 Nurse visit Kaylynn Walker COMMUNICATIONS PROFESSIONAL 04/17/2013 Office visit Kaylynn Walker COMMUNICATIONS PROFESSIONAL 04/03/2013 Nurse visit Kaylynn Walker COMMUNICATIONS PROFESSIONAL 04/03/2013 Office visit Terese Davidson MD 03/28/2013 Office visit Sundeep Russell COMMUNICATIONS PROFESSIONAL 03/21/2013 Office visit Kaylynn Mendez COMMUNICATIONS PROFESSIONAL 03/20/2013 Office visit Terese Davidson MD 03/14/2013 Nurse visit Kaylynn Walker COMMUNICATIONS PROFESSIONAL 03/05/2013 Nurse visit Kaylynn Andrea COMMUNICATIONS PROFESSIONAL 02/19/2013 Office visit Terese Davidson MD 02/16/2013 Nurse visit Kaylynn Andrea COMMUNICATIONS PROFESSIONAL 02/09/2013 Office visit Sundeep Russell COMMUNICATIONS PROFESSIONAL 02/08/2013 Nurse visit Kaylynn Walker COMMUNICATIONS PROFESSIONAL 02/01/2013 Nurse visit Kaylynn Andrea COMMUNICATIONS PROFESSIONAL 01/26/2013 Nurse visit 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 01/25/2013 Office visit Kaylynn Mendez COMMUNICATIONS PROFESSIONAL 01/22/2013 Office visit Yoan Castaneda MD 01/18/2013 Nurse visit Kaylynn Andrea COMMUNICATIONS PROFESSIONAL 01/11/2013 Nurse visit Kaylynn Andrea COMMUNICATIONS PROFESSIONAL 01/05/2013 Nurse visit Kaylynn Andrea COMMUNICATIONS PROFESSIONAL 12/29/2012 Office visit Kaylynn Mendez COMMUNICATIONS PROFESSIONAL 11/27/2012 Office visit Kaylynn Mendez COMMUNICATIONS PROFESSIONAL 11/08/2012 Office visit Odell Tierney MD 11/08/2012 Voided Odell Tierney MD 11/07/2012 Office visit Kaylynn Mendez COMMUNICATIONS PROFESSIONAL 10/31/2012 [facility] John Hoskins MD 10/31/2012 Office visit Kaylynn Mendez COMMUNICATIONS PROFESSIONAL 10/19/2012 Office visit Genoveva Ayala COMMUNICATIONS PROFESSIONAL 10/10/2012 Office visit Kaylynn Mendez COMMUNICATIONS PROFESSIONAL 10/03/2012 Office visit Kaylynn Mendez COMMUNICATIONS PROFESSIONAL 09/26/2012 Office visit Kaylynn Mendez COMMUNICATIONS PROFESSIONAL 09/06/2012 Office visit Kaylynn Mendez COMMUNICATIONS PROFESSIONAL 09/06/2012 Office visit Odell Tierney MD 08/31/2012 Voided Kaylynn Mendez COMMUNICATIONS PROFESSIONAL 07/28/2012 Office visit Kaylynn Mendez COMMUNICATIONS PROFESSIONAL 07/27/2012 Office visit David Joyner DO 07/20/2012 [facility] David Joyner DO 07/13/2012 [facility] David Joyner DO 07/11/2012 Office visit Kaylynn Mendez COMMUNICATIONS PROFESSIONAL 06/27/2012 [facility] Odell Tierney MD 06/21/2012 Office visit David Joyner DO 06/21/2012 Office visit Odell Tierney MD 06/20/2012 Office visit Brittni Yanez COMMUNICATIONS PROFESSIONAL 06/06/2012 Office visit Odell Tierney MD 05/03/2012 Office visit Kaylynn Mendez COMMUNICATIONS PROFESSIONAL 04/28/2012 Office visit Brittni Yanez COMMUNICATIONS PROFESSIONAL 04/11/2012 Office visit Kaylynn Mendez COMMUNICATIONS PROFESSIONAL 04/06/2012 [facility] MD 03/30/2012 Office visit Kaylynn Walker COMMUNICATIONS PROFESSIONAL 03/15/2012 Office visit Kaylynn Walker COMMUNICATIONS PROFESSIONAL 03/15/2012 Office visit Odell Tierney MD 02/09/2012 Office visit Kaylynn Walker COMMUNICATIONS PROFESSIONAL 12/23/2011 Office visit Kaylynn Walker COMMUNICATIONS PROFESSIONAL 11/02/2011 Office visit Kaylynn Walker COMMUNICATIONS PROFESSIONAL 10/14/2011 Office visit Kaylynn Walker COMMUNICATIONS PROFESSIONAL 09/27/2011 Office visit Kaylynn Walker COMMUNICATIONS PROFESSIONAL 08/19/2011 [facility] MD 08/18/2011 [facility] MD 08/18/2011 Office visit Kaylynn Mendez COMMUNICATIONS PROFESSIONAL 08/02/2011 Office visit Kaylynn Walker COMMUNICATIONS PROFESSIONAL 07/08/2011 Office visit Kaylynn Mendez COMMUNICATIONS PROFESSIONAL 07/05/2011 Office visit Odell Tierney MD 06/15/2011 Office visit Kaylynn Mendez COMMUNICATIONS PROFESSIONAL 05/14/2011 Office visit Kaylynn Andrea COMMUNICATIONS PROFESSIONAL 05/11/2011 Office visit Odell Tierney MD 04/28/2011 Office visit Kaylynn Mendez COMMUNICATIONS PROFESSIONAL 03/02/2011 Office visit Chadd Norris DO 02/17/2011 [...]
--- OUTSIDE RECORDS SUMMARY | 2018-05-09 22:16 | XMS REPORT ---
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 IQ Meter miscellaneous kit 01/21/2016 test 2 [...] 08/27/2014 use as directed for 99 days [place] 5-325 mg oral tablet 06/17/2014 06/27/2014 take [...] a day as needed for 30 days fwhekegu-gzxakcoxg-IW 3.5-10,000-1 mg/mL-unit/mL-% otic drops,suspension 201401/08/2015 instill 4 [...] Reviewed 04/28/2011 12:00 AM Decadron 1 mg [facility]#[id number] (Jr) Reviewed 04/28/2011 12:00 AM Depo-Medrol 80 mg NDC#[id number]-Mkcqooia Reviewed 09/02/2015 12:00 AM Toradol 60 Mg NDC#4699-6939-29 Reviewed 09/02/2015 12:00 AM Phenergan, Up to 50 Mg RHC Medicaid Reviewed 09/16/2015 12:00 AM Toradol 60 Mg NDC#8869-7196-52 Reviewed 09/16/2015 12:00 AM Phenergan Up to 50 mg RHC Medicare Reviewed 05/11/2011 12:00 AM N BLOCK INJ OCCIPITAL Reviewed 05/11/2011 12:00 AM Kenalog To-[address]-20 ANNA Reviewed 11/13/2015 12:00 AM ASSAY OF [...] INJ SC/IM Reviewed 07/08/2011 12:00 AM Toradol,15mg ND#[id number], Adil[place] Reviewed 07/08/2011 12:00 AM Phenergan 50 Mg Im [facility] 0384-3709-85 [facility] Reviewed 08/02/2011 12:00 AM THER/PROPH/DIAG INJ SC/IM Reviewed 08/02/2011 12:00 AM Decadron 1 mg ND#[id number] (Jr) Reviewed 08/02/2011 12:00 AM Depo-Medrol 80 mg ND#[id number]-Tpvucoax Reviewed 09/27/2011 12:00 AM THER/PROPH/DIAG INJ SC/IM Reviewed 09/27/2011 12:00 AM Depo-Medrol 80 mg ND#[id number]-Imlsjfzj Reviewed 10/14/2011 12:00 AM X-RAY EXAM OF ABDOMEN Returned 10/14/2011 12:00 AM URINALYSIS AUTO W/O SCOPE Reviewed 12/23/2011 12:00 AM THER/PROPH/DIAG INJ SC/IM Reviewed 12/23/2011 12:00 AM Decadron 1 mg NDC#[id number] (Jr) Reviewed 12/23/2011 12:00 AM Depo-Medrol 80 mg NDC#[id number]-Hcpzoqen Reviewed 02/09/2012 12:00 AM THER/PROPH/DIAG INJ SC/IM Reviewed 02/09/2012 12:00 AM Decadron 1 mg N[facility]#[id number] (Jr) Reviewed 02/09/2012 12:00 AM Depo-Medrol 80 mg NDC#[id number]-Xpfjdted Reviewed 03/15/2012 12:00 AM N BLOCK INJ OCCIPITAL Reviewed 03/15/2012 12:00 AM Kenalog Dq-[address]-20 ANNA Reviewed 04/11/2012 12:00 AM COMPLETE CBC W/AUTO DIFF WBC Returned 04/11/2012 12:00 AM COMPREHEN METABOLIC PANEL Returned 04/11/2012 12:00 AM LIPID PANEL Returned 04/11/2012 12:00 AM ASSAY THYROID STIM HORMONE Returned 06/20/2012 12:00 AM THER/PROPH/DIAG INJ SC/IM Reviewed 06/20/2012 12:00 AM Decadron, Per 1 Mg NDC# [address]-73 Reviewed 06/20/2012 12:00 AM Depo-Medrol, Per 80 Mg NDC#7769-9241-36 Reviewed 09/06/2012 12:00 AM N BLOCK INJ OCCIPITAL Reviewed 09/06/2012 12:00 AM Kenalog Sg-[address]-20 ANNA Reviewed 09/06/2012 12:00 AM X-RAY EXAM RIBS UNI 2 VIEWS Returned 09/26/2012 12:00 AM THER/PROPH/DIAG INJ SC/IM Reviewed 09/26/2012 12:00 AM Decadron, Per 1 Mg NDC# [address]-40 Reviewed 09/26/2012 12:00 AM Depo-Medrol, Per 80 Mg NDC#8133-1172-04 Reviewed 10/03/2012 12:00 AM URINALYSIS AUTO W/O SCOPE Reviewed 10/03/2012 12:00 AM THER/PROPH/DIAG INJ SC/IM Reviewed 10/03/2012 12:00 AM Toradol 60 Mg ND#9772-0680-66 Reviewed 10/03/2012 12:00 AM Phenergan, 25Mg ND#4346-0131-56 Reviewed 10/19/2012 12:00 AM N BLOCK INJ OCCIPITAL Reviewed 10/19/2012 12:00 AM Kenalog, Per 10 Mg ND#8106-4405-73 Reviewed 10/19/2012 12:00 AM Toradol 30 Mg ND#2695-9712-24 Reviewed 10/19/2012 12:00 AM THER/PROPH/DIAG INJ SC/IM Reviewed 10/31/2012 12:00 AM COMPLETE CBC W/AUTO DIFF WBC Returned 10/31/2012 12:00 AM COMPREHEN METABOLIC PANEL Returned 10/31/2012 12:00 AM LIPID PANEL Returned 11/03/2012 12:[address] THORAX W/O & W/DYE Returned 11/08/2012 12:00 AM N BLOCK INJ OCCIPITAL Reviewed 11/08/2012 12:00 AM Kenalog Yj-[address]-20 ANNA Reviewed 11/27/2012 12:00 AM COMPLETE CBC [...] 12:00 AM Decadron, Per 1 Mg ND# [address]-19 Reviewed 01/25/2013 12:00 AM Depo-Medrol, Per 80 Mg NDC#0204-2820-10 Reviewed 01/26/2013 12:00 AM IMMUNOTHERAPY INJECTIONS Returned [...] 05/16/2013 12:00 AM Decadron, Per 1 Mg [facility]# [address]-96 Reviewed 05/16/2013 12:00 AM Depo-Medrol, Per 80 Mg [facility]#2142-2606-33 Reviewed 05/31/2013 12:00 AM IMMUNOTHERAPY INJECTIONS Reviewed 06/08/2013 12:00 AM IMMUNOTHERAPY INJECTIONS Reviewed 06/14/2013 12:00 AM IMMUNOTHERAPY INJECTIONS Reviewed 06/28/2013 12:00 AM IMMUNOTHERAPY INJECTIONS Reviewed 07/12/2013 12:00 AM X-RAY EXAM RIBS UNI 2 VIEWS Returned 07/18/2013 12:00 AM Toradol 60 Mg [facility]#2858-5258-58 Reviewed 07/18/2013 12:00 AM THER/PROPH/DIAG INJ SC/IM Reviewed 08/23/2013 12:00 AM COMPLETE CBC W/AUTO DIFF WBC Reviewed 08/23/2013 12:00 AM COMPREHEN METABOLIC PANEL Reviewed 08/23/2013 12:00 AM LIPID PANEL Reviewed 08/31/2013 12:00 AM X-RAY EXAM OF LOWER LEG Returned 09/04/2013 12:00 AM IMMUNOTHERAPY INJECTIONS Reviewed 09/14/2013 12:00 AM THER/PROPH/DIAG INJ SC/IM Reviewed 09/14/2013 12:00 AM Decadron, Per 1 Mg [facility]# [address]-69 Reviewed 09/14/2013 12:00 AM Depo-Medrol, Per 80 Mg [facility]#2994-0453-36 Reviewed 09/20/2013 12:00 AM IMMUNOTHERAPY INJECTIONS Reviewed [...] INJ OCCIPITAL Reviewed 12/10/2009 12:00 AM Kenalog Sy-[address]-20 ANNA Reviewed 12/16/2009 12:00 AM HIV-1ANTIBODY Reviewed 12/16/2009 12:00 AM COMPLETE CBC W/AUTO DIFF WBC Reviewed 12/16/2009 12:00 AM METABOLIC PANEL TOTAL CA Reviewed 12/16/2009 12:00 AM Type and screen Reviewed 12/16/2009 12:00 AM PROTHROMBIN TIME Reviewed 12/16/2009 12:00 AM THROMBOPLASTIN TIME PARTIAL Reviewed 03/18/2010 12:00 AM DRAIN/INJ JOINT/BURSA W/O US Reviewed 03/18/2010 12:00 AM Kenalog Cb-[address]-20 ANNA Reviewed 11/21/2013 12:00 AM RADEX HAND MINIMUM 3 VIEWS Returned 06/03/2010 12:00 AM INJ TRIGGER POINT 1/2 MUSCL Reviewed 06/03/2010 12:00 AM Kenalog per 10Mg -[facility]#[address]-67(Niall) Reviewed 12/05/2013 12:00 AM COMPLETE CBC W/AUTO [...] Reviewed 07/23/2010 12:00 AM Kenalog per 10Mg Im-[facility]#[address]-83(Niall) Reviewed 2014 12:00 AM COMPLETE CBC W/AUTO [...] INJ OCCIPITAL Reviewed 10/01/2010 12:00 AM Kenalog Hd-[address]-20 ANNA Reviewed 07/25/2014 12:00 AM THER/PROPH/DIAG INJ [...] 0.60 mg/dLCALCIUM 10.90 mg/ dLeGFR >60 mL/min/1.73 [id number] 45.0 U/L 08/31/2013 10:54 AM GLUCOSE 255.0 [...] 0.40 mg/ dLCALCIUM 10.60 mg/dLeGFR >60 mL/min/1.73 [id number] 369.0 mg/ dLCHOLESTEROL 153.0 mg/dLHDL 26.0 mg/dLLDL [...] BILI 0.30 mg/dLCALCIUM 10.0 mg/dLeGFR >60 mL/min/1.73 [id number] YELLOW APPEARANCE CLEAR SPEC GRAV 1.010 pH [...] 141 Influenza 04/24/2014 sanofi pasteur PMC Fluzone [id number] Intramuscular Left Upper Arm 02/27/2014 01/15/2014 141 Influenza 02/13/2015 sanofi pasteur PMC Fluzone [id number] Intramuscular Left Deltoid 02/13/2015 01/03/2015 140 Tdap [...] Jul 08 2011 1:38PM Heart Sound Abnormality Jun 9 [...] nonalcoholic Nov 14 2012 1:15PM Abdominal Pain García 1 2013 1:20PM Leukocytosis Nov 27 2012 1:20PM Fatty [...] Start Date Medicare Part A Medicare RHC [id number] N/A [facility] RHC Comm [id number] N/A Medicare Part A Medicare - Lab/Xray [id number] N/A Medicare Part B Medicare Of [place] [id number] Monday, February 28, 2000 [place] [facility] [place] [id number] Tuesday, November 10, 2009 Medicare Part A Medicare Part A [id number] N/A [place] [employer] - R[place] [employer] - RHC [id number] [facility] Comm Plan of [id number] Wednesday, May 30, 2012 History of Encounters Visit Date Visit Type Provider 02/16/2016 Office visit Heena Dumotn MD 02/14/2016 Office visit Na Jones FOOD MIXER ASSEMBLER 01/16/2016 Office visit Heena Dumont MD 12/16/2015 Office visit Heena Dumont MD 11/24/2015 Office visit Kaylynn Mendez FOOD MIXER ASSEMBLER 11/18/2015 Office visit Heena Dumont MD 11/03/2015 Office visit Sundeep Russell FOOD MIXER ASSEMBLER 10/20/2015 Office visit Kaylynn Mendez FOOD MIXER ASSEMBLER 09/23/2015 Office visit Kaylynn Mendez FOOD MIXER ASSEMBLER 09/16/[address] Pepe Figueroa MD 09/02/2015 Office visit Kaylynn Mendez FOOD MIXER ASSEMBLER 09/01/2015 Office visit Kaylynn Mendez FOOD MIXER ASSEMBLER 07/30/2015 Office visit Heena Dumont MD 07/15/2015 Office visit Kaylynn Mendez FOOD MIXER ASSEMBLER 07/04/2015 Office visit Heena Dumont MD 06/06/2015 Office visit Heena Dumont MD 06/06/2015 Office visit Kaylynn Mendez FOOD MIXER ASSEMBLER 06/02/2015 Office visit Kaylynn Mendez FOOD MIXER ASSEMBLER 05/26/2015 Office visit Kaylynn Mendez FOOD MIXER ASSEMBLER 05/20/2015 Office visit Kaylynn Mendez FOOD MIXER ASSEMBLER 05/08/2015 Office visit Heena Dumont MD 05/06/2015 Office visit Kaylynn Mendez FOOD MIXER ASSEMBLER 04/29/2015 Office visit Kaylynn Mendez FOOD MIXER ASSEMBLER 03/27/2015 Voided Brittni Yanez FOOD MIXER ASSEMBLER 03/21/2015 Office visit Heena Dumont MD 03/12/2015 Office visit Kaylynn Mendez FOOD MIXER ASSEMBLER 02/26/2015 Office visit Brittni Yanez FOOD MIXER ASSEMBLER 02/13/2015 Office visit Heena Dumont MD 01/15/2015 Office visit Brittni Yanez FOOD MIXER ASSEMBLER 01/13/2015 Office visit Heena Dumont MD 01/08/[address] Carol Fowler MD 01/01/2015 Office visit Brittni Yanez FOOD MIXER ASSEMBLER 12/13/2014 Office visit Heena Dumont MD 11/27/2014 Office visit Kaylynn Mendez FOOD MIXER ASSEMBLER 11/14/2014 Office visit Heena Dumont MD 10/18/2014 Office visit Heena Dumont MD 10/17/2014 [facility] MD 10/09/2014 Office visit Heena Dumont MD 09/25/2014 Office visit Heena Dumont MD 09/17/2014 Office visit Kaylynn Mendez FOOD MIXER ASSEMBLER 09/04/2014 Office visit Heena Dumont MD 08/28/2014 Office visit Kaylynn Mendez FOOD MIXER ASSEMBLER 08/23/2014 [facility] MD 08/01/2014 Office visit Kaylynn Mendez FOOD MIXER ASSEMBLER 07/29/2014 Office visit Heena Dumont MD 07/25/2014 Nurse visit Heena Dumont MD 07/17/2014 Office visit Kaylynn Mendez FOOD MIXER ASSEMBLER 07/11/2014 Office visit Heena Dumont MD 07/01/2014 Office visit Heena Dumont MD 06/25/2014 Office visit Kaylynn Mendez FOOD MIXER ASSEMBLER 06/12/2014 Office visit Kaylynn Mendez FOOD MIXER ASSEMBLER 06/06/2014 Office visit Kaylynn Mendez FOOD MIXER ASSEMBLER 05/27/2014 Office visit Heena Dumont MD 04/20/2014 Office visit Yesica Falcon FOOD MIXER ASSEMBLER 03/29/2014 Office visit Na Jones FOOD MIXER ASSEMBLER 03/15/2014 Office visit Heena Dumont MD 2014 Office visit Heena Dumont MD 2014 [facility] MD 02/27/2014 Nurse visit Heena Dumont MD 02/13/2014 Office visit Lena El FOOD MIXER ASSEMBLER 02/07/2014 Office visit Heena Dumont MD 02/03/2014 Office visit Na Jones FOOD MIXER ASSEMBLER 01/30/2014 Office visit Kaylynn Mendez FOOD MIXER ASSEMBLER 01/24/2014 Office visit Sundeep Russell FOOD MIXER ASSEMBLER 01/16/2014 Office visit Kaylynn Mendez FOOD MIXER ASSEMBLER 01/10/2014 Nurse visit Kaylynn Walker FOOD MIXER ASSEMBLER 01/08/2014 Office visit Kaylynn Walker FOOD MIXER ASSEMBLER 12/05/2013 Office visit Kaylynn Walker FOOD MIXER ASSEMBLER 11/21/2013 Office visit Kaylynn Walker FOOD MIXER ASSEMBLER 10/23/2013 Office visit Brittni Yanez FOOD MIXER ASSEMBLER 10/17/2013 Nurse visit Heena Dumont MD 10/12/2013 Office visit Kaylynn Mendez FOOD MIXER ASSEMBLER 10/02/2013 Office visit Heena Dumont MD 09/20/2013 Nurse visit Kaylynn Mendez FOOD MIXER ASSEMBLER 09/20/2013 Voided Heena Dumont MD 09/14/2013 Office visit Kaylynn Mendez FOOD MIXER ASSEMBLER 09/05/2013 Office visit Sundeep Russell FOOD MIXER ASSEMBLER 09/04/2013 Nurse visit Kaylynn Mendez FOOD MIXER ASSEMBLER 08/31/2013 Office visit Kaylynn Mendez FOOD MIXER ASSEMBLER 08/23/2013 Office visit Heena Dumont MD 08/10/2013 Office visit Kaylynn Mendez FOOD MIXER ASSEMBLER 07/25/2013 Office visit Kaylynn Walker FOOD MIXER ASSEMBLER 07/18/2013 Office visit Kaylynn Walker FOOD MIXER ASSEMBLER 07/12/2013 Office visit Kaylynn Walker FOOD MIXER ASSEMBLER 06/28/2013 Nurse visit Kaylynn Mendez FOOD MIXER ASSEMBLER 06/14/2013 Nurse visit Kaylynn Mendez FOOD MIXER ASSEMBLER 06/08/2013 Nurse visit Kaylynn Mendez FOOD MIXER ASSEMBLER 05/31/2013 Nurse visit Chadd Norris DO 05/18/2013 Office visit Terese Davidson MD 05/16/2013 Office visit Kaylynn Mendez FOOD MIXER ASSEMBLER 05/09/2013 Office visit Kaylynn Mendez FOOD MIXER ASSEMBLER 04/29/2013 [facility] John Hoskins MD 04/25/2013 Nurse visit Kaylynn Mendez FOOD MIXER ASSEMBLER 04/17/2013 Office visit Kaylynn Walker FOOD MIXER ASSEMBLER 04/03/2013 Nurse visit Kaylynn Mendez FOOD MIXER ASSEMBLER 04/03/2013 Office visit Terese Davidson MD 03/28/2013 Office visit Sundeep Russell FOOD MIXER ASSEMBLER 03/21/2013 Office visit Kaylynn Mendez FOOD MIXER ASSEMBLER 03/20/2013 Office visit Terese Davidson MD 03/14/2013 Nurse visit Kaylynn Mendez FOOD MIXER ASSEMBLER 03/05/2013 Nurse visit Kaylynn Mendez FOOD MIXER ASSEMBLER 02/19/2013 Office visit Terese Davidson MD 02/16/2013 Nurse visit Kaylynn Mendez FOOD MIXER ASSEMBLER 02/09/2013 Office visit Sundeep Russell FOOD MIXER ASSEMBLER 02/08/2013 Nurse visit Kaylynn Mendez FOOD MIXER ASSEMBLER 02/01/2013 Nurse visit Kaylynn Walker FOOD MIXER ASSEMBLER 01/26/2013 Nurse visit Sabrina Andrea CINDER WORKER 01/25/2013 Office visit Kaylynn Walker FOOD MIXER ASSEMBLER 01/22/2013 Office visit Yoan Castaneda MD 01/18/2013 Nurse visit Kaylynn Walker FOOD MIXER ASSEMBLER 01/11/2013 Nurse visit Kaylynn Walker FOOD MIXER ASSEMBLER 01/05/2013 Nurse visit Kaylynn Walker FOOD MIXER ASSEMBLER 12/29/2012 Office visit Kaylynn Walker FOOD MIXER ASSEMBLER 11/27/2012 Office visit Kaylynn Walker FOOD MIXER ASSEMBLER 11/08/2012 Office visit Odell iTerney MD 11/08/2012 Voided Odell Tierney MD 11/07/2012 Office visit Kaylynn Mendez FOOD MIXER ASSEMBLER 10/31/2012 [facility] John Hoskins MD 10/31/2012 Office visit Kaylynn Walker FOOD MIXER ASSEMBLER 10/19/2012 Office visit Genoveva Ayala FOOD MIXER ASSEMBLER 10/10/2012 Office visit Kaylynn Walker FOOD MIXER ASSEMBLER 10/03/2012 Office visit Kaylynn Walker FOOD MIXER ASSEMBLER 09/26/2012 Office visit Kaylynn Mendez FOOD MIXER ASSEMBLER 09/06/2012 Office visit Kaylynn Mendez FOOD MIXER ASSEMBLER 09/06/2012 Office visit Odell Tierney MD 08/31/2012 Voided Kaylynn Mendez FOOD MIXER ASSEMBLER 07/28/2012 Office visit Kaylynn Mendez FOOD MIXER ASSEMBLER 07/27/2012 Office visit David Joyner DO 07/20/2012 [facility] David Ar DO 07/13/2012 [facility] DO 07/11/2012 Office visit Kaylynn Mendez FOOD MIXER ASSEMBLER 06/27/2012 [facility] Odell Tierney MD 06/21/2012 Office visit David Joyner DO 06/21/2012 Office visit Odell Tierney MD 06/20/2012 Office visit Brittni Yanez FOOD MIXER ASSEMBLER 06/06/2012 Office visit Odell Tierney MD 05/03/2012 Office visit Kaylynn Mendez FOOD MIXER ASSEMBLER 04/28/2012 Office visit Brittni Yanez FOOD MIXER ASSEMBLER 04/11/2012 Office visit Kaylynn Mendez FOOD MIXER ASSEMBLER 04/06/2012 [facility] John Hoskins MD 03/30/2012 Office visit Kaylynn Mendez FOOD MIXER ASSEMBLER 03/15/2012 Office visit Kaylynn Mendez FOOD MIXER ASSEMBLER 03/15/2012 Office visit Odell Tierney MD 02/09/2012 Office visit Kaylynn Mendez FOOD MIXER ASSEMBLER 12/23/2011 Office visit Kaylynn Walker FOOD MIXER ASSEMBLER 11/02/2011 Office visit Kaylynn Walker FOOD MIXER ASSEMBLER 10/14/2011 Office visit Kaylynn Walker FOOD MIXER ASSEMBLER 09/27/2011 Office visit Kaylynn Andrea FOOD MIXER ASSEMBLER 08/19/2011 [facility] MD 08/18/2011 [facility] MD 08/18/2011 Office visit Kaylynn Mendez FOOD MIXER ASSEMBLER 08/02/2011 Office visit Kaylynn Mendez FOOD MIXER ASSEMBLER 07/08/2011 Office visit Kaylynn Mendez FOOD MIXER ASSEMBLER 07/05/2011 Office visit Odell Tierney MD 06/15/2011 Office visit Kaylynn Mendez FOOD MIXER ASSEMBLER 05/14/2011 Office visit Kaylynn Mendez FOOD MIXER ASSEMBLER 05/11/2011 Office visit Odell Tierney MD 04/28/2011 Office visit Kaylynn Mendez FOOD MIXER ASSEMBLER 03/02/2011 Office visit Chadd Norris DO [...]
--- OUTSIDE RECORDS SUMMARY | 2018-05-09 22:23 | XMS REPORT ---
Author Author Kaylynn Mendez Organization [facility] Address [address] [place], [place] [id number] Care Team Providers Care Flag Signaler Name Role Phone Kaylynn Mendez PCP Unavailable [...] 01/19/2016 APPLY BY EXTERNAL ROUTE ONCE DAILY 365 docobitesToYandex IQ Meter Anyone Homecellaneous kit 01/21/2016 test 2 x daily, Dx: [...] every 12 hours for 7 days Zithromax Z-Simno 250 mg oral tablet 08/02/2011 08/07/2011 take [...] 08/27/2014 use as directed for 99 days Laie 5-325 mg oral tablet 06/17/2014 06/27/2014 take [...] a day as needed for 30 days haqjuwns-xdldpngav-N[place] 3.5-10,000-1 mg/mL-unit/mL-% otic drops,suspension 201401/08/2015 instill 4 [...] Ok for similiar substitution or individual components. cievreys-kgmvoxejl-JH 3.5-10,000-1 mg/mL-unit/mL-% otic drops,suspension 201607/23/2016 instill 4 [...] Reviewed 04/28/2011 12:00 AM Decadron 1 mg [facility]#[id number] (Jr) Reviewed 04/28/2011 12:00 AM Depo-Medrol 80 mg ND#[id number]-Ldiscuvw Reviewed 09/02/2015 12:00 AM Toradol 60 Mg ND#9195-1099-77 Reviewed 09/02/2015 12:00 AM Phenergan, Up to 50 Mg RHC Medicaid Reviewed 09/16/2015 12:00 AM Toradol 60 Mg [facility]#2009-9035-53 Reviewed 09/16/2015 12:00 AM Phenergan Up to 50 mg RHC Medicare Reviewed 05/11/2011 12:00 AM N BLOCK INJ OCCIPITAL Reviewed 05/11/2011 12:00 AM Kenalog Mo-[address]-20 ANNA Reviewed 11/13/2015 12:00 AM ASSAY OF [...] INJ SC/IM Reviewed 07/08/2011 12:00 AM Toradol,15mg ND#[id number], Hetmejiaer Reviewed 07/08/2011 12:00 AM Phenergan 50 Mg Im [facility] [id number] [place] Reviewed 01/21/2016 12:00 AM ECG MONIT/REPRT UP TO 48 HRS Returned 08/02/2011 12:00 AM THER/PROPH/DIAG INJ SC/IM Reviewed 08/02/2011 12:00 AM Decadron 1 mg [facility]#[id number] (Jr) Reviewed 08/02/2011 12:00 AM Depo-Medrol 80 mg [facility]#[id number]-Hmfelzhz Reviewed 03/05/2016 12:00 AM COMPLETE CBC W/AUTO DIFF WBC Reviewed 03/05/2016 12:00 AM STREP A ASSAY W/OPTIC Reviewed 03/05/2016 12:00 AM C-REACTIVE PROTEIN Reviewed 03/18/2016 12:00 AM [facility] MEDICARE - flu vaccine administration Reviewed [...] Reviewed 09/27/2011 12:00 AM Depo-Medrol 80 mg [facility]#[id number]-Vrrxoizl Reviewed 09/27/2011 12:00 AM Depo-Medrol 40 mg [facility]#[id number] Reviewed 07/06/2016 12:00 AM CHEST X-RAY 4/> [...] Reviewed 12/23/2011 12:00 AM Decadron 1 mg NDC#[id number] (Jr) Reviewed 12/23/2011 12:00 AM Depo-Medrol 80 mg NDC#[id number]-Zdxqqydk Reviewed 11/02/2016 11:45 AM URINALYSIS AUTO W/O [...] Reviewed 02/09/2012 12:00 AM Decadron 1 mg NDC#09058010003 (Jr) Reviewed 02/09/2012 12:00 AM Depo-Medrol 80 mg NDC#[id number]-Hgsfrxmr Reviewed 03/15/2012 12:00 AM N BLOCK INJ OCCIPITAL Reviewed 03/15/2012 12:00 AM Kenalog Yb-[address]-20 ANNA Reviewed 04/11/2012 12:00 AM COMPLETE CBC W/AUTO DIFF WBC Reviewed 04/11/2012 12:00 AM COMPREHEN METABOLIC PANEL Reviewed 04/11/2012 12:00 AM LIPID PANEL Reviewed 04/11/2012 12:00 AM ASSAY THYROID STIM HORMONE Reviewed 04/11/2012 12:00 AM DESTRUCT PREMALG LES 2-14 Reviewed 06/20/2012 12:00 AM THER/PROPH/DIAG INJ SC/IM Reviewed 06/20/2012 12:00 AM Decadron, Per 1 Mg ND# [address]-88 Reviewed 06/20/2012 12:00 AM Depo-Medrol, Per 80 Mg NDC#9893-9296-41 Reviewed 09/06/2012 12:00 AM N BLOCK INJ OCCIPITAL Reviewed 09/06/2012 12:00 AM Kenalog Wn-[address]-20 ANNA Reviewed 09/06/2012 12:00 AM X-RAY EXAM RIBS UNI 2 VIEWS Reviewed 09/26/2012 12:00 AM THER/PROPH/DIAG INJ SC/IM Reviewed 09/26/2012 12:00 AM Decadron, Per 1 Mg NDC# [address]-88 Reviewed 09/26/2012 12:00 AM Depo-Medrol, Per 80 Mg NDC#8110-2373-65 Reviewed 10/03/2012 12:00 AM URINALYSIS AUTO W/O SCOPE Reviewed 10/03/2012 12:00 AM THER/PROPH/DIAG INJ SC/IM Reviewed 10/03/2012 12:00 AM Toradol 60 Mg ND#6177-0492-98 Reviewed 10/03/2012 12:00 AM Phenergan, 25Mg ND#6192-0223-40 Reviewed 10/19/2012 12:00 AM N BLOCK INJ OCCIPITAL Reviewed 10/19/2012 12:00 AM Kenalog, Per 10 Mg ND#9664-2544-26 Reviewed 10/19/2012 12:00 AM Toradol 30 Mg ND#3289-6169-64 Reviewed 10/19/2012 12:00 AM THER/PROPH/DIAG INJ SC/IM Reviewed 10/31/2012 12:00 AM COMPLETE CBC W/AUTO DIFF WBC Reviewed 10/31/2012 12:00 AM COMPREHEN METABOLIC PANEL Reviewed 10/31/2012 12:00 AM LIPID PANEL Reviewed 10/31/2012 12:00 AM ELECTROCARDIOGRAM COMPLETE Reviewed 11/03/2012 12:[address] THORAX W/O & W/DYE Reviewed 11/08/2012 12:00 AM N BLOCK INJ OCCIPITAL Reviewed 11/08/2012 12:00 AM Kenalog Vn-[address]-20 NANA Reviewed 11/27/2012 12:00 AM COMPLETE CBC W/AUTO [...] 01/25/2013 12:00 AM Decadron, Per 1 Mg [facility]# [address]-56 Reviewed 01/25/2013 12:00 AM Depo-Medrol, Per 80 Mg [facility]#1586-5977-07 Reviewed 01/26/2013 12:00 AM IMMUNOTHERAPY ONE INJECTION [...] 05/16/2013 12:00 AM Decadron, Per 1 Mg [facility]# [address]-36 Reviewed 05/16/2013 12:00 AM Depo-Medrol, Per 80 Mg [facility]#9454-5520-52 Reviewed 05/31/2013 12:00 AM IMMUNOTHERAPY INJECTIONS Reviewed 06/08/2013 12:00 AM IMMUNOTHERAPY INJECTIONS Reviewed 06/14/2013 12:00 AM IMMUNOTHERAPY INJECTIONS Reviewed 06/28/2013 12:00 AM IMMUNOTHERAPY INJECTIONS Reviewed 07/12/2013 12:00 AM X-RAY EXAM RIBS UNI 2 VIEWS Reviewed 07/18/2013 12:00 AM Toradol 60 Mg [facility]#3669-4402-17 Reviewed 07/18/2013 12:00 AM THER/PROPH/DIAG INJ SC/IM Reviewed 08/23/2013 12:00 AM COMPLETE CBC W/AUTO DIFF WBC Reviewed 08/23/2013 12:00 AM COMPREHEN METABOLIC PANEL Reviewed 08/23/2013 12:00 AM LIPID PANEL Reviewed 08/31/2013 12:00 AM X-RAY EXAM OF LOWER LEG Reviewed 09/04/2013 12:00 AM IMMUNOTHERAPY INJECTIONS Reviewed 09/14/2013 12:00 AM THER/PROPH/DIAG INJ SC/IM Reviewed 09/14/2013 12:00 AM Decadron, Per 1 Mg [facility]# [address]-60 Reviewed 09/14/2013 12:00 AM Depo-Medrol, Per 80 Mg [facility]#1991-1832-43 Reviewed 09/20/2013 12:00 AM IMMUNOTHERAPY INJECTIONS Reviewed [...] INJ OCCIPITAL Reviewed 12/10/2009 12:00 AM Kenalog Db-[address]-20 ANNA Reviewed 12/16/2009 12:00 AM HIV-1ANTIBODY Reviewed 12/16/2009 12:00 AM COMPLETE CBC W/AUTO DIFF WBC Reviewed 12/16/2009 12:00 AM METABOLIC PANEL TOTAL CA Reviewed 12/16/2009 12:00 AM Type and screen Reviewed 12/16/2009 12:00 AM PROTHROMBIN TIME Reviewed 12/16/2009 12:00 AM THROMBOPLASTIN TIME PARTIAL Reviewed 03/18/2010 12:00 AM DRAIN/INJ JOINT/BURSA W/O US Reviewed 03/18/2010 12:00 AM Kenalog Bg-[address]-20 ANNA Reviewed 11/21/2013 12:00 AM RADEX HAND MINIMUM 3 VIEWS Reviewed 06/03/2010 12:00 AM INJ TRIGGER POINT 1/2 MUSCL Reviewed 06/03/2010 12:00 AM Kenalog per 10Mg Im-Ndc#[address]-96(Niall) Reviewed 12/05/2013 12:00 AM COMPLETE CBC W/AUTO [...] Reviewed 07/23/2010 12:00 AM Kenalog per 10Mg Im-Ndc#[address]-06(Niall) Reviewed 2014 12:00 AM COMPLETE CBC W/AUTO [...] INJ OCCIPITAL Reviewed 10/01/2010 12:00 AM Kenalog Ra-[address]-20 ANNA Reviewed 07/25/2014 12:00 AM THER/PROPH/DIAG INJ [...] <0.80 RMSF , IgG, EIA Negative [facility] Spotted Fever,IgM 0.51 E. chaffeensis (HME) IgGTiter [...] 141 Influenza 04/24/2014 sanofi pasteur PMC Fluzone [id number] Intramuscular Left Upper Arm 02/27/2014 01/15/2014 141 Influenza 02/13/2015 sanofi pasteur PMC Fluzone [id number] Intramuscular Left Deltoid 02/13/2015 01/03/2015 140 Tdap 06/06/2015 [employer]Smith[employer] SKB BOOSTRIX [id number] Intramuscular Left Deltoid 06/06/2015 07/23/2014 115 Influenza 03/18/2016 sanofi pasteur PMC Fluzone [id number] Intramuscular Left Deltoid 03/17/2016 01/03/2015 141 History [...] Chronic pain syndrome Dec 02 2016 2:15PM Payers Insurance Name Company Name Plan Name Plan Number Policy Number Policy Group Number Start Date Medicare RHC Medicare RHC [id number] N/A [facility] - [facility] - [facility] Comm [id number] N/A Medicare Part A Medicare - Lab/Xray [id number] N/A Medicare Part B Medicare Of [place] [id number] Monday, February 28, 2000 [place] [employer] [place] [employer] [place] Prog [id number] Tuesday, November 10, 2009 Medicare Part A Medicare Part A [id number] N/A [place] [employer] Prog - RHC [place] [employer] Prog - RHC [id number] May [facility] Comm Plan of [id number] Wednesday, May 30, 2012 History of Encounters Visit Date Visit Type Provider 12/15/2016 Office visit Kaylynn Mendez APRN 12/02/2016 Office visit Heena Dumont MD 11/23/2016 Office visit Kaylynn Mendez APRN 11/17/2016 Office visit Kaylynn Mendez APRN 11/05/2016 Office visit Riccardo Cardoza MD 11/02/2016 Office visit Heena Dumont MD 10/06/2016 Office visit Kaylynn Mendez CAR TRACER 09/22/2016 Office visit Heena Dumont MD 09/09/2016 Office visit Kaylynn Mendez CAR TRACER 08/27/2016 Office visit Riccardo Cardoza MD 08/26/2016 Office visit Heena Dumont MD 07/09/2016 Office visit Riccardo Cardoza MD 07/06/2016 Office visit Heena Dumont MD 06/18/2016 Office visit Kaylynn Mendez CAR TRACER 06/07/2016 Office visit Sundeep Russell CAR TRACER 06/04/2016 Office visit Heena Dumont MD 05/13/2016 Office visit Heena Dumont MD 05/03/2016 Office visit Heena Dumont MD 04/26/2016 Office visit Kaylynn Mendez CAR TRACER 04/14/2016 Office visit Heena Dumont MD 04/13/2016 Office visit Kaylynn Mendez CAR TRACER 04/02/2016 Office visit Lena El CAR TRACER 04/02/2016 Office visit Heena Dumont MD 03/26/2016 Office visit Yesica Falcon CAR TRACER 03/17/2016 Office visit Heena Dumont MD 03/05/2016 Office visit Kaylynn Mendez CAR TRACER 02/16/2016 Office visit eHena Dumont MD 02/14/2016 Office visit Na Jones CAR TRACER 01/16/2016 Office visit Heena Dumont MD 12/16/2015 Office visit Heena Dumont MD 11/24/2015 Office visit Kaylynn Mendez CAR TRACER 11/18/2015 Office visit Heena Dumont MD 11/03/2015 Office visit Sundeep Russell CAR TRACER 10/20/2015 Office visit Kaylynn Mendez CAR TRACER 09/23/2015 Office visit Kaylynn Mendez CAR TRACER 09/16/[address] Pepe Figueroa MD 09/02/2015 Office visit Kaylynn Mendez CAR TRACER 09/01/2015 Office visit Kaylynn Mendez CAR TRACER 07/30/2015 Office visit Heena Dumont MD 07/15/2015 Office visit Kaylynn Mendez CAR TRACER 07/04/2015 Office visit Heena Dumont MD 06/06/2015 Office visit Heena Dumont MD 06/06/2015 Office visit Kaylynn Mendez CAR TRACER 06/02/2015 Office visit Kaylynn Mendez CAR TRACER 05/26/2015 Office visit Kaylynn Mendez CAR TRACER 05/20/2015 Office visit Kaylynn Mendez CAR TRACER 05/08/2015 Office visit Heena Dumont MD 05/06/2015 Office visit Kaylynn Mendez CAR TRACER 04/29/2015 Office visit Kaylynn Mendez CAR TRACER 03/27/2015 Voided Brittni Yanez CAR TRACER 03/21/2015 Office visit Heena Dumont MD 03/12/2015 Office visit Kaylynn Mendez CAR TRACER 02/26/2015 Office visit Brittni Yanez CAR TRACER 02/13/2015 Office visit Heena Dumont MD 01/15/2015 Office visit Brittni Yanez CAR TRACER 01/13/2015 Office visit Heena Dumont MD 01/08/[address] Carol Fowler MD 01/01/2015 Office visit Brittni Yanez CAR TRACER 12/13/2014 Office visit Heena Dumont MD 11/27/2014 Office visit Kaylynn Mendez CAR TRACER 11/14/2014 Office visit Heena Dumont MD 10/18/2014 Office visit Heena Dumont MD 10/17/2014 [facility] John Hoskins MD 10/09/2014 Office visit Heena Dumont MD 09/25/2014 Office visit Heena Dumont MD 09/17/2014 Office visit Kaylynn Mendez CAR TRACER 09/04/2014 Office visit Heena Dumont MD 08/28/2014 Office visit Kaylynn Mendez CAR TRACER 08/23/2014 [facility] John Hoskins MD 08/01/2014 Office visit Kaylynn Mendez CAR TRACER 07/29/2014 Office visit Heena Dumont MD 07/25/2014 Nurse visit Heena Dumont MD 07/17/2014 Office visit Kaylynn Mendez CAR TRACER 07/11/2014 Office visit Heena Dumont MD 07/01/2014 Office visit Heena Dumont MD 06/25/2014 Office visit Kaylynn Mendez CAR TRACER 06/12/2014 Office visit Kaylynn Mendez CAR TRACER 06/06/2014 Office visit Kaylynn Mendez CAR TRACER 05/27/2014 Office visit Heena Dumont MD 04/20/2014 Office visit Yesica Falcon CAR TRACER 03/29/2014 Office visit Na Jones CAR TRACER 03/15/2014 Office visit Heena Dumont MD 2014 Office visit Heena Dumont MD 2014 Hospital John Hoskins MD 02/27/2014 Nurse visit Heena Dumont MD 02/13/2014 Office visit Lena El CAR TRACER 02/07/2014 Office visit Heena Dumont MD 02/03/2014 Office visit Na Jones CAR TRACER 01/30/2014 Office visit Kaylynn Mendez CAR TRACER 01/24/2014 Office visit Sundeep Russell CAR TRACER 01/16/2014 Office visit Kaylynn Walker CAR TRACER 01/10/2014 Nurse visit Kaylynn Walker CAR TRACER 01/08/2014 Office visit Kaylynn Walker CAR TRACER 12/05/2013 Office visit Kaylynn Walker CAR TRACER 11/21/2013 Office visit Kaylynn Walker CAR TRACER 10/23/2013 Office visit Brittni Yanez CAR TRACER 10/17/2013 Nurse visit Heena Dumont MD 10/12/2013 Office visit Kaylynn Mendez CAR TRACER 10/02/2013 Office visit Heena Dumont MD 09/20/2013 Nurse visit Kaylynn Mendez CAR TRACER 09/20/2013 Voided Heena Dumont MD 09/14/2013 Office visit Kaylynn Walker CAR TRACER 09/05/2013 Office visit Sundeep Russell CAR TRACER 09/04/2013 Nurse visit Kaylynn Walker CAR TRACER 08/31/2013 Office visit Kaylynn Mendez CAR TRACER 08/23/2013 Office visit Heena Dumont MD 08/10/2013 Office visit Kaylynn Walker CAR TRACER 07/25/2013 Office visit Kaylynn Walker CAR TRACER 07/18/2013 Office visit Kaylynn Walker CAR TRACER 07/12/2013 Office visit Kaylynn Walker CAR TRACER 06/28/2013 Nurse visit Kaylynn Walker CAR TRACER 06/14/2013 Nurse visit Kaylynn Walker CAR TRACER 06/08/2013 Nurse visit Kaylynn Walker CAR TRACER 05/31/2013 Nurse visit Chadd Norris DO 05/18/2013 Office visit Terese Davidson MD 05/16/2013 Office visit Kaylynn Mendez CAR TRACER 05/09/2013 Office visit Kaylynn Walker CAR TRACER 04/29/2013 [facility] John Hoskins MD 04/25/2013 Nurse visit Kaylynn Walker CAR TRACER 04/17/2013 Office visit Kaylynn Walker CAR TRACER 04/03/2013 Nurse visit Kaylynn Walker CAR TRACER 04/03/2013 Office visit Terese Davidson MD 03/28/2013 Office visit Sundeep Russell CAR TRACER 03/21/2013 Office visit Kaylynn Mendez CAR TRACER 03/20/2013 Office visit Terese Davidson MD 03/14/2013 Nurse visit Kaylynn Mendez CAR TRACER 03/05/2013 Nurse visit Kaylynn Mendez CAR TRACER 02/19/2013 Office visit Terese Davidson MD 02/16/2013 Nurse visit Kaylynn Mendez CAR TRACER 02/09/2013 Office visit Sundeep Russell CAR TRACER 02/08/2013 Nurse visit Kaylynn Mendez CAR TRACER 02/01/2013 Nurse visit Kaylynn Mendez CAR TRACER 01/26/2013 Nurse visit Sabrina Mendez [employer] 01/25/2013 Office visit Kaylynn Mendez CAR TRACER 01/22/2013 Office visit Yoan Castaneda MD 01/18/2013 Nurse visit Kaylynn Mendez CAR TRACER 01/11/2013 Nurse visit Kaylynn Andrea CAR TRACER 01/05/2013 Nurse visit Kaylynn Walker CAR TRACER 12/29/2012 Office visit Kaylynn Walker CAR TRACER 11/27/2012 Office visit Kaylynn Mendez CAR TRACER 11/08/2012 Office visit Odell Tierney MD 11/08/2012 Voided Odell Tierney MD 11/07/2012 Office visit Kaylynn Mendez CAR TRACER 10/31/2012 [facility] John Hoskins MD 10/31/2012 Office visit Kaylynn Mendez CAR TRACER 10/19/2012 Office visit Genoveva Ayala CAR TRACER 10/10/2012 Office visit Kaylynn Mendez CAR TRACER 10/03/2012 Office visit Kaylynn Mendez CAR TRACER 09/26/2012 Office visit Kaylynn Mendez CAR TRACER 09/06/2012 Office visit Kaylynn Mendez CAR TRACER 09/06/2012 Office visit Odell Tierney MD 08/31/2012 Voided Kaylynn Mendez CAR TRACER 07/28/2012 Office visit Kaylynn Mendez CAR TRACER 07/27/2012 Office visit David Joyner DO 07/20/2012 [employer] DO 07/13/2012 [employer] DO 07/11/2012 Office visit Kaylynn Mendez CAR TRACER 06/27/2012 [facility] Odell Tierney MD 06/21/2012 Office visit David Joyner DO 06/21/2012 Office visit Odell Tierney MD 06/20/2012 Office visit Brittni Yanez CAR TRACER 06/06/2012 Office visit Odell Tierney MD 05/03/2012 Office visit Kaylynn Mendez CAR TRACER 04/28/2012 Office visit Brittni Yanez CAR TRACER 04/11/2012 Office visit Kaylynn Mendez CAR TRACER 04/06/2012 [facility] John Hoskins MD 03/30/2012 Office visit Kaylynn Mendez CAR TRACER 03/15/2012 Office visit Kaylynn Mendez CAR TRACER 03/15/2012 Office visit Odell Tierney MD 02/09/2012 Office visit Kaylynn Mendez CAR TRACER 12/23/2011 Office visit Kaylynn Mendez CAR TRACER 11/02/2011 Office visit Kaylynn Mendez CAR TRACER 10/14/2011 Office visit Kaylynn Mendez CAR TRACER 09/27/2011 Office visit Kaylynn Mendze CAR TRACER 08/19/2011 [facility] Hoskins MD 08/18/2011 Hospital John Hoskins MD 08/18/2011 Office visit Kaylynn Mendez CAR TRACER 08/02/2011 Office visit Kaylynn Mendez CAR TRACER 07/08/2011 Office visit Kaylynn Mendez CAR TRACER 07/05/2011 Office visit Odell Tierney MD 06/15/2011 Office visit Kaylynn Mendez CAR TRACER 05/14/2011 Office visit Kaylynn Mendez CAR TRACER 05/11/2011 Office visit Odell Tierney MD 04/28/2011 Office visit Kaylynn Mendez CAR TRACER 03/02/2011 Office visit Chadd Norris DO 02/17/2011 [...]
--- OUTSIDE RECORDS SUMMARY | 2018-05-09 22:28 | XMS REPORT ---
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 Name Role Phone Heena Dumont PCP Allergies [...] 08/27/2014 use as directed for 99 days [place] 5-325 mg oral tablet 06/17/2014 06/27/2014 take [...] a day as needed for 30 days [id number]-[id number]-KV 3.5-10,000-1 mg/mL-unit/mL-% otic drops,suspension 201401/08/2015 instill 4 [...] Reviewed 04/28/2011 12:00 AM Decadron 1 mg NDC#[id number] (Jr) Reviewed 04/28/2011 12:00 AM Depo-Medrol 80 mg NDC#[id number]-Vzqjcxis Reviewed 05/11/2011 12:00 AM N BLOCK INJ OCCIPITAL Reviewed 05/11/2011 12:00 AM Kenalog To-[address]-20 ANNA Reviewed 06/15/2011 12:00 AM COMPLETE CBC W/AUTO DIFF WBC Returned 06/15/2011 12:00 AM COMPREHEN METABOLIC PANEL Returned 07/08/2011 12:00 AM THER/PROPH/DIAG INJ SC/IM Reviewed 07/08/2011 12:00 AM Toradol,15mg NDC#[id number], Adilene Reviewed 07/08/2011 12:00 AM Phenergan 50 Mg Im Nd 7741-6425-67 ALLIE Hoskins Reviewed 08/02/2011 12:00 AM THER/PROPH/DIAG INJ SC/IM Reviewed 08/02/2011 12:00 AM Decadron 1 mg NDC#[id number] (Jr) Reviewed 08/02/2011 12:00 AM Depo-Medrol 80 mg NDC#[id number]-Rmwbnwdb Reviewed 09/27/2011 12:00 AM THER/PROPH/DIAG INJ SC/IM Reviewed 09/27/2011 12:00 AM Depo-Medrol 80 mg NDC#[id number]-Ssgrgjih Reviewed 10/14/2011 12:00 AM X-RAY EXAM OF ABDOMEN Returned 10/14/2011 12:00 AM URINALYSIS AUTO W/O SCOPE Reviewed 12/23/2011 12:00 AM THER/PROPH/DIAG INJ SC/IM Reviewed 12/23/2011 12:00 AM Decadron 1 mg NDC#[id number] (Jr) Reviewed 12/23/2011 12:00 AM Depo-Medrol 80 mg NDC#[id number]-Atfibtww Reviewed 02/09/2012 12:00 AM THER/PROPH/DIAG INJ SC/IM Reviewed 02/09/2012 12:00 AM Decadron 1 mg NDC#[id number] (Jr) Reviewed 02/09/2012 12:00 AM Depo-Medrol 80 mg NDC#[id number]-Eolndvnm Reviewed 03/15/2012 12:00 AM N BLOCK INJ OCCIPITAL Reviewed 03/15/2012 12:00 AM Kenalog Kq-[address]-20 ANNA Reviewed 04/11/2012 12:00 AM COMPLETE CBC W/AUTO DIFF WBC Returned 04/11/2012 12:00 AM COMPREHEN METABOLIC PANEL Returned 04/11/2012 12:00 AM LIPID PANEL Returned 04/11/2012 12:00 AM ASSAY THYROID STIM HORMONE Returned 06/20/2012 12:00 AM THER/PROPH/DIAG INJ SC/IM Reviewed 06/20/2012 12:00 AM Decadron, Per 1 Mg ND# [address]-59 Reviewed 06/20/2012 12:00 AM Depo-Medrol, Per 80 Mg ND#9075-2755-15 Reviewed 09/06/2012 12:00 AM N BLOCK INJ OCCIPITAL Reviewed 09/06/2012 12:00 AM Kenalog Rf-[address]-20 ANNA Reviewed 09/06/2012 12:00 AM X-RAY EXAM RIBS UNI 2 VIEWS Returned 09/26/2012 12:00 AM THER/PROPH/DIAG INJ SC/IM Reviewed 09/26/2012 12:00 AM Decadron, Per 1 Mg ND# [address]-34 Reviewed 09/26/2012 12:00 AM Depo-Medrol, Per 80 Mg ND#2283-0082-69 Reviewed 10/03/2012 12:00 AM URINALYSIS AUTO W/O SCOPE Reviewed 10/03/2012 12:00 AM THER/PROPH/DIAG INJ SC/IM Reviewed 10/03/2012 12:00 AM Toradol 60 Mg ND#8462-2650-98 Reviewed 10/03/2012 12:00 AM Phenergan, 25Mg ND#4556-1246-79 Reviewed 10/19/2012 12:00 AM N BLOCK INJ OCCIPITAL Reviewed 10/19/2012 12:00 AM Kenalog, Per 10 Mg ND#3732-5395-84 Reviewed 10/19/2012 12:00 AM Toradol 30 Mg ND#5040-7291-84 Reviewed 10/19/2012 12:00 AM THER/PROPH/DIAG INJ SC/IM Reviewed 10/31/2012 12:00 AM COMPLETE CBC W/AUTO DIFF WBC Returned 10/31/2012 12:00 AM COMPREHEN METABOLIC PANEL Returned 10/31/2012 12:00 AM LIPID PANEL Returned 11/03/2012 12:[address] THORAX W/O & W/DYE Returned 11/08/2012 12:00 AM N BLOCK INJ OCCIPITAL Reviewed 11/08/2012 12:00 AM Kenalog Vi-[address]-20 ANNA Reviewed 11/27/2012 12:00 AM COMPLETE CBC [...] 01/25/2013 12:00 AM Decadron, Per 1 Mg [facility]# [address]-13 Reviewed 01/25/2013 12:00 AM Depo-Medrol, Per 80 Mg [facility]#3065-9443-31 Reviewed 01/26/2013 12:00 AM IMMUNOTHERAPY INJECTIONS Returned [...] 05/16/2013 12:00 AM Decadron, Per 1 Mg [facility]# [address]-66 Reviewed 05/16/2013 12:00 AM Depo-Medrol, Per 80 Mg [facility]#2989-2935-84 Reviewed 05/31/2013 12:00 AM IMMUNOTHERAPY INJECTIONS Reviewed 06/08/2013 12:00 AM IMMUNOTHERAPY INJECTIONS Reviewed 06/14/2013 12:00 AM IMMUNOTHERAPY INJECTIONS Reviewed 06/28/2013 12:00 AM IMMUNOTHERAPY INJECTIONS Reviewed 07/12/2013 12:00 AM X-RAY EXAM RIBS UNI 2 VIEWS Returned 07/18/2013 12:00 AM Toradol 60 Mg [facility]#7651-8878-18 Reviewed 07/18/2013 12:00 AM THER/PROPH/DIAG INJ SC/IM Reviewed 08/23/2013 12:00 AM COMPLETE CBC W/AUTO DIFF WBC Reviewed 08/23/2013 12:00 AM COMPREHEN METABOLIC PANEL Reviewed 08/23/2013 12:00 AM LIPID PANEL Reviewed 08/31/2013 12:00 AM X-RAY EXAM OF LOWER LEG Returned 09/04/2013 12:00 AM IMMUNOTHERAPY INJECTIONS Reviewed 09/14/2013 12:00 AM THER/PROPH/DIAG INJ SC/IM Reviewed 09/14/2013 12:00 AM Decadron, Per 1 Mg [facility]# [address]-41 Reviewed 09/14/2013 12:00 AM Depo-Medrol, Per 80 Mg [facility]#4823-1189-41 Reviewed 09/20/2013 12:00 AM IMMUNOTHERAPY INJECTIONS Reviewed [...] INJ OCCIPITAL Reviewed 12/10/2009 12:00 AM Kenalog Re-[address]-20 ANNA Reviewed 12/16/2009 12:00 AM HIV-1ANTIBODY Reviewed 12/16/2009 12:00 AM COMPLETE CBC W/AUTO DIFF WBC Reviewed 12/16/2009 12:00 AM METABOLIC PANEL TOTAL CA Reviewed 12/16/2009 12:00 AM Type and screen Reviewed 12/16/2009 12:00 AM PROTHROMBIN TIME Reviewed 12/16/2009 12:00 AM THROMBOPLASTIN TIME PARTIAL Reviewed 03/18/2010 12:00 AM DRAIN/INJ JOINT/BURSA W/O US Reviewed 03/18/2010 12:00 AM Kenalog Rw-[address]-20 ANNA Reviewed 11/21/2013 12:00 AM RADEX HAND MINIMUM 3 VIEWS Returned 06/03/2010 12:00 AM INJ TRIGGER POINT 1/2 MUSCL Reviewed 06/03/2010 12:00 AM Kenalog per 10Mg -[facility]#[address]-02(Niall) Reviewed 12/05/2013 12:00 AM COMPLETE CBC W/AUTO [...] 07/23/2010 12:00 AM Kenalog per 10Mg Im-[facility]#[address]-64(Niall) Reviewed 2014 12:00 AM COMPLETE CBC W/AUTO [...] INJ OCCIPITAL Reviewed 10/01/2010 12:00 AM Kenalog Ow-[address]-20 ANNA Reviewed 07/25/2014 12:00 AM THER/PROPH/DIAG INJ [...] 0.60 mg/dLCALCIUM 10.90 mg/ dLeGFR >60 mL/min/1.73 [id number] 45.0 U/L 08/31/2013 10:54 AM GLUCOSE 255.0 [...] 0.40 mg/ dLCALCIUM 10.60 mg/dLeGFR >60 mL/min/1.73 [id number] 369.0 mg/ dLCHOLESTEROL 153.0 mg/dLHDL 26.0 mg/dLLDL [...] BILI 0.30 mg/dLCALCIUM 10.0 mg/dLeGFR >60 mL/min/1.73 [id number] YELLOW APPEARANCE CLEAR SPEC GRAV 1.010 pH 5.5 PROTEIN NEGATIVE GLUCOSE NEGATIVE KETONE NEGATIVE BILIRUBIN NEGATIVE BLOOD NEGATIVE NITRITE NEGATIVE LEUK SCREEN NEGATIVE Est Avg Glucose 134.1 mg/dLMICROALBUMIN UR <0.5 MG/DL 02/13/2015 4:38 PM RMSF, IgG, EIA Negative [facility] Spotted Fever,IgM 0.51 E. [...] 141 Influenza 04/24/2014 sanofi pasteur PMC Fluzone [id number] Intramuscular Left Upper Arm 02/27/2014 01/15/2014 141 Influenza 02/13/2015 sanofi pasteur PMC Fluzone [id number] Intramuscular Left Deltoid 02/13/2015 01/03/2015 140 Tdap 06/06/2015 [employer] SKB BOOSTRIX [id number] Intramuscular Left Deltoid 06/06/2015 [...] allergic rhinitis type Jun 06 2015 9:14AM Payers Insurance Name Company Name Plan Name Plan Number Policy Number Policy Group Number Start Date Medicare Part A Medicare Part A [id number] N/A [facility] Comm [id number] N/A [place] 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 - [facility] 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 - [facility] [id number] May [place] Comm Plan of [id number] Wednesday, 2012 Medicare Part B Medicare [place] [id number] Monday, 2000 [place] [employer] [place] [id number] Tuesday, 2009 History of Encounters Visit Date Visit Type Provider 06/06/2015 Office visit Heena Dumont MD 06/06/2015 Office visit Kaylynn Mendez FORENSIC BALLISTICS EXPERT 06/02/2015 Office visit Kaylynn Mendez FORENSIC BALLISTICS EXPERT 05/26/2015 Office visit Kaylynn Mendez FORENSIC BALLISTICS EXPERT 05/20/2015 Office visit Kaylynn Mendez FORENSIC BALLISTICS EXPERT 05/08/2015 Office visit Heena Dumont MD 05/06/2015 Office visit Kaylynn Mendez FORENSIC BALLISTICS EXPERT 04/29/2015 Office visit Kaylynn Mendez FORENSIC BALLISTICS EXPERT 03/27/2015 Voided Brittni Yanez FORENSIC BALLISTICS EXPERT 03/21/2015 Office visit Heena Dumont MD 03/12/2015 Office visit Kaylynn Mendez FORENSIC BALLISTICS EXPERT 02/26/2015 Office visit Brittni Yanez APRN 02/13/2015 Office visit Heena Dumont MD 01/15/2015 Office visit Brittni Yanez FORENSIC BALLISTICS EXPERT 01/13/2015 Office visit Heena Dumont MD 01/08/[address] Carol Fowler MD 01/01/2015 Office visit Brittni Yanez FORENSIC BALLISTICS EXPERT 12/13/2014 Office visit Heena Dumont MD 11/27/2014 Office visit Kaylynn Mendez FORENSIC BALLISTICS EXPERT 11/14/2014 Office visit Heena Dumont MD 10/18/2014 Office visit Heena Dumont MD 10/17/2014 [facility] Eliseo Hoskins MD 10/09/2014 Office visit Heena Dumont MD 09/25/2014 Office visit Heena Dumont MD 09/17/2014 Office visit Kaylynn Mendez FORENSIC BALLISTICS EXPERT 09/04/2014 Office visit Heena Dumont MD 08/28/2014 Office visit Kaylynn Mendez FORENSIC BALLISTICS EXPERT 08/23/2014 [facility] Eliseo Hoskins MD 08/01/2014 Office visit Kaylynn Mendez FORENSIC BALLISTICS EXPERT 07/29/2014 Office visit Heena Dumont MD 07/25/2014 Nurse visit Heena Dumont MD 07/17/2014 Office visit Kaylynn Mendez FORENSIC BALLISTICS EXPERT 07/11/2014 Office visit Heena Dumont MD 07/01/2014 Office visit Heena Dumont MD 06/25/2014 Office visit Kaylynn Mendez FORENSIC BALLISTICS EXPERT 06/12/2014 Office visit Kaylynn Mendez FORENSIC BALLISTICS EXPERT 06/06/2014 Office visit Kaylynn Mendez FORENSIC BALLISTICS EXPERT 05/27/2014 Office visit Heena Dumont MD 04/20/2014 Office visit Yesica Faclon FORENSIC BALLISTICS EXPERT 03/29/2014 Office visit Na Jones FORENSIC BALLISTICS EXPERT 03/15/2014 Office visit Heena Dumont MD 2014 Office visit Heena Dumont MD 2014 [facility] Eliseo Hoskins MD 02/27/2014 Nurse visit Heena Dumont MD 02/13/2014 Office visit Lena El FORENSIC BALLISTICS EXPERT 02/07/2014 Office visit Heena Dumont MD 02/03/2014 Office visit Na Jones FORENSIC BALLISTICS EXPERT 01/30/2014 Office visit Kaylynn Mendez FORENSIC BALLISTICS EXPERT 01/24/2014 Office visit Sundeep Russell FORENSIC BALLISTICS EXPERT 01/16/2014 Office visit Kaylynn Mendez FORENSIC BALLISTICS EXPERT 01/10/2014 Nurse visit Kaylynn Mendez FORENSIC BALLISTICS EXPERT 01/08/2014 Office visit Kaylynn Mendez FORENSIC BALLISTICS EXPERT 12/05/2013 Office visit Kaylynn Mendez FORENSIC BALLISTICS EXPERT 11/21/2013 Office visit Kaylynn Mendez FORENSIC BALLISTICS EXPERT 10/23/2013 Office visit Brittni Yanez FORENSIC BALLISTICS EXPERT 10/17/2013 Nurse visit Heena Dumont MD 10/12/2013 Office visit Kaylynn Mendez FORENSIC BALLISTICS EXPERT 10/02/2013 Office visit Heena Dumont MD 09/20/2013 Nurse visit Kaylynn Mendez FORENSIC BALLISTICS EXPERT 09/20/2013 Voided Heena Dumont MD 09/14/2013 Office visit Kaylynn Mendez FORENSIC BALLISTICS EXPERT 09/05/2013 Office visit Sundeep Russell FORENSIC BALLISTICS EXPERT 09/04/2013 Nurse visit Kaylynn Walker FORENSIC BALLISTICS EXPERT 08/31/2013 Office visit Kaylynn Walker FORENSIC BALLISTICS EXPERT 08/23/2013 Office visit Heena Dumont MD 08/10/2013 Office visit Kaylynn Walker FORENSIC BALLISTICS EXPERT 07/25/2013 Office visit Kaylynn Walker FORENSIC BALLISTICS EXPERT 07/18/2013 Office visit Kaylynn Walker FORENSIC BALLISTICS EXPERT 07/12/2013 Office visit Kaylynn Walker FORENSIC BALLISTICS EXPERT 06/28/2013 Nurse visit Kaylynn Walker FORENSIC BALLISTICS EXPERT 06/14/2013 Nurse visit Kaylynn Walker FORENSIC BALLISTICS EXPERT 06/08/2013 Nurse visit Kaylynn Walker FORENSIC BALLISTICS EXPERT 05/31/2013 Nurse visit Chadd Norris DO 05/18/2013 Office visit Terese Davidson MD 05/16/2013 Office visit Kaylynn Mendez FORENSIC BALLISTICS EXPERT 05/09/2013 Office visit Kaylynn Mendez FORENSIC BALLISTICS EXPERT 04/29/2013 [facility] Eliseo Hoskins MD 04/25/2013 Nurse visit Kaylynn Walker FORENSIC BALLISTICS EXPERT 04/17/2013 Office visit Kaylynn Mendez FORENSIC BALLISTICS EXPERT 04/03/2013 Nurse visit Kaylynn Mendez FORENSIC BALLISTICS EXPERT 04/03/2013 Office visit Terese Davidson MD 03/28/2013 Office visit Sundeep Russell FORENSIC BALLISTICS EXPERT 03/21/2013 Office visit Kaylynn Mendez FORENSIC BALLISTICS EXPERT 03/20/2013 Office visit Terese Davidson MD 03/14/2013 Nurse visit Kaylynn Mendez FORENSIC BALLISTICS EXPERT 03/05/2013 Nurse visit Kaylynn Mendez FORENSIC BALLISTICS EXPERT 02/19/2013 Office visit Terese Davidson MD 02/16/2013 Nurse visit Kaylynn Mendez FORENSIC BALLISTICS EXPERT 02/09/2013 Office visit Sundeep Russell FORENSIC BALLISTICS EXPERT 02/08/2013 Nurse visit Kaylynn Walker FORENSIC BALLISTICS EXPERT 02/01/2013 Nurse visit Kaylynn Mendez FORENSIC BALLISTICS EXPERT 01/26/2013 Nurse visit Sabrina Mendez SURGERY CENTER ADMINISTRATOR 01/25/2013 Office visit Kaylynn Mendez FORENSIC BALLISTICS EXPERT 01/22/2013 Office visit Yoan Castaneda MD 01/18/2013 Nurse visit Kaylynn Walker FORENSIC BALLISTICS EXPERT 01/11/2013 Nurse visit Kaylynn Walker FORENSIC BALLISTICS EXPERT 01/05/2013 Nurse visit Kaylynn Walker FORENSIC BALLISTICS EXPERT 12/29/2012 Office visit Kaylynn Mendez FORENSIC BALLISTICS EXPERT 11/27/2012 Office visit Kaylynn Walker FORENSIC BALLISTICS EXPERT 11/08/2012 Office visit Odell Tierney MD 11/08/2012 Voided Odell Tierney MD 11/07/2012 Office visit Kaylynn Andrea FORENSIC BALLISTICS EXPERT 10/31/2012 [facility] John Hoskins MD 10/31/2012 Office visit Kaylynn Walker FORENSIC BALLISTICS EXPERT 10/19/2012 Office visit Genoveva Ayala FORENSIC BALLISTICS EXPERT 10/10/2012 Office visit Kaylynn Walker FORENSIC BALLISTICS EXPERT 10/03/2012 Office visit Kaylynn Walker FORENSIC BALLISTICS EXPERT 09/26/2012 Office visit Kaylynn Walker FORENSIC BALLISTICS EXPERT 09/06/2012 Office visit Kaylynn Walker FORENSIC BALLISTICS EXPERT 09/06/2012 Office visit Odell Tierney MD 08/31/2012 Voided Kaylynn Andrea FORENSIC BALLISTICS EXPERT 07/28/2012 Office visit Kaylynn Walker FORENSIC BALLISTICS EXPERT 07/27/2012 Office visit David Joyner DO 07/20/2012 [facility] DO 07/13/2012 [facility] David Joyner DO 07/11/2012 Office visit Kaylynn Andrea FORENSIC BALLISTICS EXPERT 06/27/2012 [facility] Odell Tierney MD 06/21/2012 Office visit David Joyner DO 06/21/2012 Office visit Odell Tierney MD 06/20/2012 Office visit Brittni Yanez FORENSIC BALLISTICS EXPERT 06/06/2012 Office visit Odell Tierney MD 05/03/2012 Office visit Kaylynn Mendez FORENSIC BALLISTICS EXPERT 04/28/2012 Office visit Brittni Yanez FORENSIC BALLISTICS EXPERT 04/11/2012 Office visit Kaylynn Walker FORENSIC BALLISTICS EXPERT 04/06/2012 [facility] John Hoskins MD 03/30/2012 Office visit Kaylynn Walker FORENSIC BALLISTICS EXPERT 03/15/2012 Office visit Kaylynn Mendez FORENSIC BALLISTICS EXPERT 03/15/2012 Office visit Odell Tierney MD 02/09/2012 Office visit Kaylynn Walker FORENSIC BALLISTICS EXPERT 12/23/2011 Office visit Kaylynn Walker FORENSIC BALLISTICS EXPERT 11/02/2011 Office visit Kaylynn Walker FORENSIC BALLISTICS EXPERT 10/14/2011 Office visit Kaylynn Walker FORENSIC BALLISTICS EXPERT 09/27/2011 Office visit Kaylynn Mendez FORENSIC BALLISTICS EXPERT 08/19/2011 [facility] John Hoskins MD 08/18/2011 [facility] John Hoskins MD 08/18/2011 Office visit Kaylynn Walker FORENSIC BALLISTICS EXPERT 08/02/2011 Office visit Kaylynn Walker FORENSIC BALLISTICS EXPERT 07/08/2011 Office visit Kaylynn Walker FORENSIC BALLISTICS EXPERT 07/05/2011 Office visit Odell Tierney MD 06/15/2011 Office visit Kaylynn Walker FORENSIC BALLISTICS EXPERT 05/14/2011 Office visit Kaylynn Walker FORENSIC BALLISTICS EXPERT 05/11/2011 Office visit Odell Tierney MD 04/28/2011 Office visit Kaylynn Mendez FORENSIC BALLISTICS EXPERT 03/02/2011 Office visit Chadd Norris DO 02/17/2011 Office visit Chadd Norris DO 01/19/2011 Office visit Odell Tierney MD 12/16/2010 Office visit Odell Tierney MD 12/02/2010 Office visit Yaon Castaneda MD 11/24/2010 Office visit Chadd Norris [...]
--- OUTSIDE RECORDS SUMMARY | 2018-05-09 22:35 | XMS REPORT ---
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 for 30 days Name Start Date Expiration [...] 08/27/2014 use as directed for 99 days [place] 5-325 mg oral tablet 06/17/2014 06/27/2014 take [...] a day as needed for 30 days oanbbxdl-gmnnxuyvg-LW 3.5-10,000-1 mg/mL-unit/mL-% otic drops,suspension 201401/08/2015 instill 4 [...] HC BMI BSA BMI Percentile O2 Sat(%) 06/07/2016 10:37:00 AM 86 bpm 16 rpm [...] 04/28/2011 12:00 AM Decadron 1 mg [facility]#[id number] (Jr) Reviewed 04/28/2011 12:00 AM Depo-Medrol 80 mg ND#[id number]-Qvrpehuq Reviewed 09/02/2015 12:00 AM Toradol 60 Mg [facility]#3926-8680-46 Reviewed 09/02/2015 12:00 AM Phenergan, Up to 50 Mg R[facility] Medicaid Reviewed 09/16/2015 12:00 AM Toradol 60 Mg [facility]#6895-2235-73 Reviewed 09/16/2015 12:00 AM Phenergan Up to 50 mg RHC Medicare Reviewed 05/11/2011 12:00 AM N BLOCK INJ OCCIPITAL Reviewed 05/11/2011 12:00 AM Kenalog Vi-[address]-20 ANNA Reviewed 11/13/2015 12:00 AM ASSAY OF [...] Reviewed 07/08/2011 12:00 AM Toradol,15mg [facility]#[id number], [place] Reviewed 07/08/2011 12:00 AM Phenergan 50 Mg Im [facility] 3415-0279-32 [facility] Reviewed 01/21/2016 12:00 AM ECG MONIT/REPRT UP TO 48 HRS Returned 08/02/2011 12:00 AM THER/PROPH/DIAG INJ SC/IM Reviewed 08/02/2011 12:00 AM Decadron 1 mg [facility]#[id number] (Jr) Reviewed 08/02/2011 12:00 AM Depo-Medrol 80 mg [facility]#[id number]-Tlmrritv Reviewed 03/05/2016 12:00 AM COMPLETE CBC W/AUTO DIFF WBC Returned 03/05/2016 12:00 AM STREP A ASSAY W/OPTIC Returned 03/05/2016 12:00 AM C-REACTIVE PROTEIN Returned 03/18/2016 12:00 AM [facility] MEDICARE - flu vaccine administration Reviewed 03/18/2016 [...] Reviewed 09/27/2011 12:00 AM Depo-Medrol 80 mg [facility]#[id number]-Ufyqodrk Reviewed 10/14/2011 12:00 AM X-RAY EXAM OF ABDOMEN Reviewed 10/14/2011 12:00 AM URINALYSIS AUTO W/O SCOPE Reviewed 12/23/2011 12:00 AM THER/PROPH/DIAG INJ SC/IM Reviewed 12/23/2011 12:00 AM Decadron 1 mg [facility]#[id number] (Jr) Reviewed 12/23/2011 12:00 AM Depo-Medrol 80 mg [facility]#[id number]-Dgkecfgj Reviewed 02/09/2012 12:00 AM THER/PROPH/DIAG INJ SC/IM Reviewed 02/09/2012 12:00 AM Decadron 1 mg [facility]#[id number] (Jr) Reviewed 02/09/2012 12:00 AM Depo-Medrol 80 mg [facility]#[id number]-Dllctkow Reviewed 03/15/2012 12:00 AM N BLOCK INJ OCCIPITAL Reviewed 03/15/2012 12:00 AM Kenalog Sx-[address]-20 ANNA Reviewed 04/11/2012 12:00 AM COMPLETE CBC W/AUTO DIFF WBC Reviewed 04/11/2012 12:00 AM COMPREHEN METABOLIC PANEL Reviewed 04/11/2012 12:00 AM LIPID PANEL Reviewed 04/11/2012 12:00 AM ASSAY THYROID STIM HORMONE Reviewed 06/20/2012 12:00 AM THER/PROPH/DIAG INJ SC/IM Reviewed 06/20/2012 12:00 AM Decadron, Per 1 Mg [facility]# [address]-73 Reviewed 06/20/2012 12:00 AM Depo-Medrol, Per 80 Mg [facility]#6119-8107-53 Reviewed 09/06/2012 12:00 AM N BLOCK INJ OCCIPITAL Reviewed 09/06/2012 12:00 AM Kenalog Xl-[address]-20 ANNA Reviewed 09/06/2012 12:00 AM X-RAY EXAM RIBS UNI 2 VIEWS Reviewed 09/26/2012 12:00 AM THER/PROPH/DIAG INJ SC/IM Reviewed 09/26/2012 12:00 AM Decadron, Per 1 Mg [facility]# [address]-87 Reviewed 09/26/2012 12:00 AM Depo-Medrol, Per 80 Mg [facility]#8145-3014-34 Reviewed 10/03/2012 12:00 AM URINALYSIS AUTO W/O SCOPE Reviewed 10/03/2012 12:00 AM THER/PROPH/DIAG INJ SC/IM Reviewed 10/03/2012 12:00 AM Toradol 60 Mg [facility]#7898-6770-37 Reviewed 10/03/2012 12:00 AM Phenergan, 25Mg [facility]#1003-1014-60 Reviewed 10/19/2012 12:00 AM N BLOCK INJ OCCIPITAL Reviewed 10/19/2012 12:00 AM Kenalog, Per 10 Mg [facility]#6443-0572-62 Reviewed 10/19/2012 12:00 AM Toradol 30 Mg [facility]#7635-8576-94 Reviewed 10/19/2012 12:00 AM THER/PROPH/DIAG INJ SC/IM Reviewed 10/31/2012 12:00 AM COMPLETE CBC W/AUTO DIFF WBC Reviewed 10/31/2012 12:00 AM COMPREHEN METABOLIC PANEL Reviewed 10/31/2012 12:00 AM LIPID PANEL Reviewed 11/03/2012 12:[address] THORAX W/O & W/DYE Reviewed 11/08/2012 12:00 AM N BLOCK INJ OCCIPITAL Reviewed 11/08/2012 12:00 AM Kenalog Hb-[address]-20 ANNA Reviewed 11/27/2012 12:00 AM COMPLETE CBC [...] Decadron, Per 1 Mg [facility]# [address]-47 Reviewed 01/25/2013 12:00 AM Depo-Medrol, Per 80 Mg [facility]#5607-2862-37 Reviewed 01/26/2013 12:00 AM IMMUNOTHERAPY INJECTIONS Reviewed [...] Decadron, Per 1 Mg [facility]# [address]-34 Reviewed 05/16/2013 12:00 AM Depo-Medrol, Per 80 Mg [facility]#7054-5939-88 Reviewed 05/31/2013 12:00 AM IMMUNOTHERAPY INJECTIONS Reviewed 06/08/2013 12:00 AM IMMUNOTHERAPY INJECTIONS Reviewed 06/14/2013 12:00 AM IMMUNOTHERAPY INJECTIONS Reviewed 06/28/2013 12:00 AM IMMUNOTHERAPY INJECTIONS Reviewed 07/12/2013 12:00 AM X-RAY EXAM RIBS UNI 2 VIEWS Reviewed 07/18/2013 12:00 AM Toradol 60 Mg [facility]#4211-7106-46 Reviewed 07/18/2013 12:00 AM THER/PROPH/DIAG INJ SC/IM Reviewed 08/23/2013 12:00 AM COMPLETE CBC W/AUTO DIFF WBC Reviewed 08/23/2013 12:00 AM COMPREHEN METABOLIC PANEL Reviewed 08/23/2013 12:00 AM LIPID PANEL Reviewed 08/31/2013 12:00 AM X-RAY EXAM OF LOWER LEG Reviewed 09/04/2013 12:00 AM IMMUNOTHERAPY INJECTIONS Reviewed 09/14/2013 12:00 AM THER/PROPH/DIAG INJ SC/IM Reviewed 09/14/2013 12:00 AM Decadron, Per 1 Mg [facility]# [address]-04 Reviewed 09/14/2013 12:00 AM Depo-Medrol, Per 80 Mg [facility]#5658-6562-06 Reviewed 09/20/2013 12:00 AM IMMUNOTHERAPY INJECTIONS Reviewed [...] INJ OCCIPITAL Reviewed 12/10/2009 12:00 AM Quentin Pp-[address]-20 ANNA Reviewed 12/16/2009 12:00 AM HIV-1ANTIBODY Reviewed 12/16/2009 12:00 AM COMPLETE CBC W/AUTO DIFF WBC Reviewed 12/16/2009 12:00 AM METABOLIC PANEL TOTAL CA Reviewed 12/16/2009 12:00 AM Type and screen Reviewed 12/16/2009 12:00 AM PROTHROMBIN TIME Reviewed 12/16/2009 12:00 AM THROMBOPLASTIN TIME PARTIAL Reviewed 03/18/2010 12:00 AM DRAIN/INJ JOINT/BURSA W/O US Reviewed 03/18/2010 12:00 AM Quentin Nq-[address]-20 ANNA Reviewed 11/21/2013 12:00 AM RADEX HAND MINIMUM 3 VIEWS Reviewed 06/03/2010 12:00 AM INJ TRIGGER POINT 1/2 MUSCL Reviewed 06/03/2010 12:00 AM Kenalog per 10Mg Im-[facility]#[address]-81(Niall) Reviewed 12/05/2013 12:00 AM COMPLETE CBC W/AUTO [...] Reviewed 07/23/2010 12:00 AM Kenalog per 10Mg Im-[facility]#[address]-50(Niall) Reviewed 2014 12:00 AM COMPLETE CBC W/AUTO [...] INJ OCCIPITAL Reviewed 10/01/2010 12:00 AM Kengretta Ae-[address]-20 ANNA Reviewed 07/25/2014 12:00 AM THER/PROPH/DIAG INJ [...] Quant,IgM <0.80 RMSF , IgG, EIA Negative [facility] [...] <0.010 History Of Immunizations Name Date Admin g Name Mf Code Trade Name Lot# Route Inj Vis Given Vis Pub CVX Influenza 03/30/2011 Not Entered NE Not Entered Not Entered Not Entered 03/31/2011 05/30/2016 141 Influenza 04/24/2014 sanofi pasteur PMC Fluzone [id number] Intramuscular Left Upper Arm 02/27/2014 01/15/2014 141 Influenza 02/13/2015 sanofi pasteur PMC Fluzone [id number] Intramuscular Left Deltoid 02/13/2015 01/03/2015 140 Tdap 06/06/2015 [employer] SKB BOOSTRIX [id number] Intramuscular Left Deltoid 06/06/2015 07/23/2014 115 Influenza 03/18/2016 [facility] Fluzone [id number] Intramuscular Left Deltoid 03/17/2016 01/03/2015 141 History [...] Muscle Spasm b 6 2011 1:58PM Headache Fe 9 2011 1:38PM [...] non-recurrent frontal sinusitis Jun 07 2016 10:38AM Payers Insurance Name Company Name Plan Name Plan Number Policy Number Policy Group Number Start Date Medicare RHC Medicare RHC [id number] N/A [facility] Comm [id number] N/A Medicare Part A Medicare - Lab/Xray [id number] N/A Medicare Part B Medicare Of [place] [id number] Monday, February 28, 2000 [place] Medical Assistance [facility] Medical Assistance Prog [id number] Tuesday, November 10, 2009 Medicare Part A Medicare Part A [id number] N/A [place] Acid [employer]ester Prog - RHC [facility] Asst Prog - RHC [id number] May [facility] Plan of [id number] Wednesday, May 30, 2012 History of Encounters Visit Date Visit Type Provider 06/07/2016 Office visit Sundeep Russell CORNICE UPHOLSTERER 06/04/2016 Office visit Heena Dumont MD 05/13/2016 Office visit Heena Dumont MD 05/03/2016 Office visit Heena Dumont MD 04/26/2016 Office visit Kaylynn Mendez CORNICE UPHOLSTERER 04/14/2016 Office visit Heena Dumont MD 04/13/2016 Office visit Kaylynn Mendez CORNICE UPHOLSTERER 04/02/2016 Office visit Lena El CORNICE UPHOLSTERER 04/02/2016 Office visit Heena Dumont MD 03/26/2016 Office visit Yesica Falcon CORNICE UPHOLSTERER 03/17/2016 Office visit Heena Dumont MD 03/05/2016 Office visit Kaylynn Mendez CORNICE UPHOLSTERER 02/16/2016 Office visit Heena Dumont MD 02/14/2016 Office visit Na Jones CORNICE UPHOLSTERER 01/16/2016 Office visit Heena Dumont MD 12/16/2015 Office visit Heena Dumont MD 11/24/2015 Office visit Kaylynn Mendez CORNICE UPHOLSTERER 11/18/2015 Office visit Heena Dumont MD 11/03/2015 Office visit Sundeep Russell CORNICE UPHOLSTERER 10/20/2015 Office visit Kaylynn Mendez CORNICE UPHOLSTERER 09/23/2015 Office visit Kaylynn Mendez CORNICE UPHOLSTERER 09/16/[address] Pepe Figueroa MD 09/02/2015 Office visit Kaylynn Mendez CORNICE UPHOLSTERER 09/01/2015 Office visit Kaylynn Mendez CORNICE UPHOLSTERER 07/30/2015 Office visit Heena Dumont MD 07/15/2015 Office visit Kaylynn Mendez CORNICE UPHOLSTERER 07/04/2015 Office visit Heena Dumont MD 06/06/2015 Office visit Heena Dumont MD 06/06/2015 Office visit Kaylynn Mendez CORNICE UPHOLSTERER 06/02/2015 Office visit Kaylynn Mendez CORNICE UPHOLSTERER 05/26/2015 Office visit Kaylynn Mendez CORNICE UPHOLSTERER 05/20/2015 Office visit Kaylynn Mendez CORNICE UPHOLSTERER 05/08/2015 Office visit Heena Dumont MD 05/06/2015 Office visit Kaylynn Mendez CORNICE UPHOLSTERER 04/29/2015 Office visit Kaylynn Mendez CORNICE UPHOLSTERER 03/27/2015 Voided Brittni Yanez CORNICE UPHOLSTERER 03/21/2015 Office visit Heena Dumont MD 03/12/2015 Office visit Kaylynn Mendez CORNICE UPHOLSTERER 02/26/2015 Office visit Brittni Yanez CORNICE UPHOLSTERER 02/13/2015 Office visit Heena Dumont MD 01/15/2015 Office visit Brittni Yanez CORNICE UPHOLSTERER 01/13/2015 Office visit Heena Dumont MD 01/08/[address] Carol Fowler MD 01/01/2015 Office visit Brittni Yanez CORNICE UPHOLSTERER 12/13/2014 Office visit Heena Dumont MD 11/27/2014 Office visit Kaylynn Mendez CORNICE UPHOLSTERER 11/14/2014 Office visit Heena Dumont MD 10/18/2014 Office visit Heena Dumont MD 10/17/2014 [facility] John Hoskins MD 10/09/2014 Office visit Heena Dumont MD 09/25/2014 Office visit Heena Dumont MD 09/17/2014 Office visit Kaylynn Mendez CORNICE UPHOLSTERER 09/04/2014 Office visit Heena Dumont MD 08/28/2014 Office visit Kaylynn Mendez CORNICE UPHOLSTERER 08/23/2014 [facility] John Hoskins MD 08/01/2014 Office visit Kaylynn Mendez CORNICE UPHOLSTERER 07/29/2014 Office visit Heena Dumont MD 07/25/2014 Nurse visit Heena Dumont MD 07/17/2014 Office visit Kaylynn Mendez CORNICE UPHOLSTERER 07/11/2014 Office visit Heena Dumont MD 07/01/2014 Office visit Heena Dumont MD 06/25/2014 Office visit Kaylynn Mendez CORNICE UPHOLSTERER 06/12/2014 Office visit Kaylynn Mendez CORNICE UPHOLSTERER 06/06/2014 Office visit Kaylynn Mendez CORNICE UPHOLSTERER 05/27/2014 Office visit Heena Dumont MD 04/20/2014 Office visit Yesica Falcon CORNICE UPHOLSTERER 03/29/2014 Office visit Na Jones CORNICE UPHOLSTERER 03/15/2014 Office visit Heena Dumont MD 2014 Office visit Heena Dumont MD 2014 [facility] Hoskins MD 02/27/2014 Nurse visit Heena Dumont MD 02/13/2014 Office visit Lena El CORNICE UPHOLSTERER 02/07/2014 Office visit Heena Dumont MD 02/03/2014 Office visit Na Jones CORNICE UPHOLSTERER 01/30/2014 Office visit Kaylynn Mendez CORNICE UPHOLSTERER 01/24/2014 Office visit Sundeep Russell CORNICE UPHOLSTERER 01/16/2014 Office visit Kaylynn Walker CORNICE UPHOLSTERER 01/10/2014 Nurse visit Kaylynn Walker CORNICE UPHOLSTERER 01/08/2014 Office visit Kaylynn Walker CORNICE UPHOLSTERER 12/05/2013 Office visit Kaylynn Walker CORNICE UPHOLSTERER 11/21/2013 Office visit Kaylynn Walker CORNICE UPHOLSTERER 10/23/2013 Office visit Brittni Yanez CORNICE UPHOLSTERER 10/17/2013 Nurse visit Heena Dumont MD 10/12/2013 Office visit Kaylynn Walker CORNICE UPHOLSTERER 10/02/2013 Office visit Heena Dumont MD 09/20/2013 Nurse visit Kaylynn Walker CORNICE UPHOLSTERER 09/20/2013 Voided Heena Dumont MD 09/14/2013 Office visit Kaylynn Walker CORNICE UPHOLSTERER 09/05/2013 Office visit Sundeep Russell CORNICE UPHOLSTERER 09/04/2013 Nurse visit Kaylynn Walker CORNICE UPHOLSTERER 08/31/2013 Office visit Kaylynn Walker CORNICE UPHOLSTERER 08/23/2013 Office visit Heena Dumont MD 08/10/2013 Office visit Kaylynn Walker CORNICE UPHOLSTERER 07/25/2013 Office visit Kaylynn Walker CORNICE UPHOLSTERER 07/18/2013 Office visit Kaylynn Walker CORNICE UPHOLSTERER 07/12/2013 Office visit Kaylynn Walker CORNICE UPHOLSTERER 06/28/2013 Nurse visit Kaylynn Walker CORNICE UPHOLSTERER 06/14/2013 Nurse visit Kaylynn Walker CORNICE UPHOLSTERER 06/08/2013 Nurse visit Kaylynn Walker CORNICE UPHOLSTERER 05/31/2013 Nurse visit Chadd Norris DO 05/18/2013 Office visit Terese Davidson MD 05/16/2013 Office visit Kaylynn Mendez CORNICE UPHOLSTERER 05/09/2013 Office visit Kaylynn Mendez CORNICE UPHOLSTERER 04/29/2013 [facility] John Hoskins MD 04/25/2013 Nurse visit Kaylynn Walker CORNICE UPHOLSTERER 04/17/2013 Office visit Kaylynn Walker CORNICE UPHOLSTERER 04/03/2013 Nurse visit Kaylynn Mendez CORNICE UPHOLSTERER 04/03/2013 Office visit Terese Davidson MD 03/28/2013 Office visit Sundeep Russell CORNICE UPHOLSTERER 03/21/2013 Office visit Kaylynn Mendez CORNICE UPHOLSTERER 03/20/2013 Office visit Terese Davidson MD 03/14/2013 Nurse visit Kaylynn Mendez CORNICE UPHOLSTERER 03/05/2013 Nurse visit Kaylynn Mendez CORNICE UPHOLSTERER 02/19/2013 Office visit Terese Davidson MD 02/16/2013 Nurse visit Kaylynn Mendez CORNICE UPHOLSTERER 02/09/2013 Office visit Sundeep Russell CORNICE UPHOLSTERER 02/08/2013 Nurse visit Kaylynn Walker CORNICE UPHOLSTERER 02/01/2013 Nurse visit Kaylynn Walker CORNICE UPHOLSTERER 01/26/2013 Nurse visit Sabrina Mendez JOB ANALYST 01/25/2013 Office visit Kaylynn Walker CORNICE UPHOLSTERER 01/22/2013 Office visit Yoan Castaneda MD 01/18/2013 Nurse visit Kaylynn Walker CORNICE UPHOLSTERER 01/11/2013 Nurse visit Kaylynn Walker CORNICE UPHOLSTERER 01/05/2013 Nurse visit Kaylynn Walker CORNICE UPHOLSTERER 12/29/2012 Office visit Kaylynn Walker CORNICE UPHOLSTERER 11/27/2012 Office visit Kaylynn Walker CORNICE UPHOLSTERER 11/08/2012 Office visit Odell Tierney MD 11/08/2012 Voided Odell Tierney MD 11/07/2012 Office visit Kaylynn Walker CORNICE UPHOLSTERER 10/31/2012 [facility] John Hoskins MD 10/31/2012 Office visit Kaylynn Walker CORNICE UPHOLSTERER 10/19/2012 Office visit Genoveva Ayala CORNICE UPHOLSTERER 10/10/2012 Office visit Kaylynn Walker CORNICE UPHOLSTERER 10/03/2012 Office visit Kaylynn Walker CORNICE UPHOLSTERER 09/26/2012 Office visit Kaylynn Walker CORNICE UPHOLSTERER 09/06/2012 Office visit Kaylynn Walker CORNICE UPHOLSTERER 09/06/2012 Office visit Odell Tierney MD 08/31/2012 Voided Kaylynn Mendez CORNICE UPHOLSTERER 07/28/2012 Office visit Kaylynn Walker CORNICE UPHOLSTERER 07/27/2012 Office visit David Joyner DO 07/20/2012 [facility] David Ar DO 07/13/2012 [facility] DO 07/11/2012 Office visit Kaylynn Mendez CORNICE UPHOLSTERER 06/27/2012 [facility] Odell Tierney MD 06/21/2012 Office visit David Joyner DO 06/21/2012 Office visit Odell Tierney MD 06/20/2012 Office visit Brittni Yanez CORNICE UPHOLSTERER 06/06/2012 Office visit Odell Tierney MD 05/03/2012 Office visit Kaylynn Mendez CORNICE UPHOLSTERER 04/28/2012 Office visit Brittni Yanez CORNICE UPHOLSTERER 04/11/2012 Office visit Kaylynn Mendez CORNICE UPHOLSTERER 04/06/2012 [facility] John Hoskins MD 03/30/2012 Office visit Kaylynn Mendez CORNICE UPHOLSTERER 03/15/2012 Office visit Kaylynn Mendez CORNICE UPHOLSTERER 03/15/2012 Office visit Odell Tierney MD 02/09/2012 Office visit Kaylynn Walker CORNICE UPHOLSTERER 12/23/2011 Office visit Kaylynn Walker CORNICE UPHOLSTERER 11/02/2011 Office visit Kaylynn Walker CORNICE UPHOLSTERER 10/14/2011 Office visit Kaylynn Walker CORNICE UPHOLSTERER 09/27/2011 Office visit Kaylynn Mendez CORNICE UPHOLSTERER 08/19/2011 [facility] John Hoskins MD 08/18/2011 [facility] John Hoskins MD 08/18/2011 Office visit Kaylynn Mendez CORNICE UPHOLSTERER 08/02/2011 Office visit Kaylynn Mendez CORNICE UPHOLSTERER 07/08/2011 Office visit Kaylynn Andrea CORNICE UPHOLSTERER 07/05/2011 Office visit Odell Tierney MD 06/15/2011 Office visit Kaylynn Mendez CORNICE UPHOLSTERER 05/14/2011 Office visit Kaylynn Mendez CORNICE UPHOLSTERER 05/11/2011 Office visit Odell Tierney MD 04/28/2011 Office visit Kaylynn Andrea CORNICE UPHOLSTERER 03/02/2011 Office visit Chadd Norris DO 02/17/2011 [...]
--- OUTSIDE RECORDS SUMMARY | 2018-05-09 22:41 | XMS REPORT ---
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 jufsuxgs-dkvotixud-EI 3.5-10,000-1 mg/mL-unit/mL-% otic drops,suspension 201607/23/2016 instill 4 [...] by oral route BID x 9 days Discontinued Name Start Date Discontinued Date [...] 30 days per kaylynn yaima crouch lidocaine 5 % topical adhesive patch,medicated 03/15/2014 05/27/2014 apply 1 patch by transdermal route once daily (May wear up to 12hours.) for 30 days QNASL 80 mcg/actuation nasal HFA aerosol inhaler 07/29/2014 spray 2 sprays ( 160 mcg) in each nostril by intranasal route once daily Emely 50-1,000 mg oral tablet 04/28/2014 06/25/2014 TAKE [...] HC BMI BSA BMI Percentile O2 Sat(%) 02/02/2017 10:43:00 AM 126 mmHg 86 mmHg [...] Reviewed 04/28/2011 12:00 AM Decadron 1 mg NDC#[id number] (Jr) Reviewed 04/28/2011 12:00 AM Depo-Medrol 80 mg NDC#[id number]-Lstglqak Reviewed 09/02/2015 12:00 AM Toradol 60 Mg NDC#8456-1138-49 Reviewed 09/02/2015 12:00 AM Phenergan, Up to 50 Mg RHC Medicaid Reviewed 09/16/2015 12:00 AM Toradol 60 Mg NDC#3768-4072-66 Reviewed 09/16/2015 12:00 AM Phenergan Up to 50 mg RHC Medicare Reviewed 05/11/2011 12:00 AM N BLOCK INJ OCCIPITAL Reviewed 05/11/2011 12:00 AM Kenalog Qi-[address]-20 ANNA Reviewed 11/13/2015 12:00 AM ASSAY OF [...] SC/IM Reviewed 07/08/2011 12:00 AM Toradol,15mg [facility]#[id number], [place] Reviewed 07/08/2011 12:00 AM Phenergan 50 Mg Im [facility] 4578-5547-39 [place] Reviewed 01/21/2016 12:00 AM ECG MONIT/REPRT UP TO 48 HRS Returned 08/02/2011 12:00 AM THER/PROPH/DIAG INJ SC/IM Reviewed 08/02/2011 12:00 AM Decadron 1 mg [facility]#[id number] (Jr) Reviewed 08/02/2011 12:00 AM Depo-Medrol 80 mg [facility]#[id number]-Uuadfnwr Reviewed 03/05/2016 12:00 AM COMPLETE CBC W/AUTO DIFF WBC Reviewed 03/05/2016 12:00 AM STREP A ASSAY W/OPTIC Reviewed 03/05/2016 12:00 AM C-REACTIVE PROTEIN Reviewed 03/18/2016 12:00 AM [facility] MEDICARE - flu vaccine administration Reviewed 03/18/2016 [...] 09/27/2011 12:00 AM Depo-Medrol 80 mg [facility]#[id number]-Smigojfu Reviewed 09/27/2011 12:00 AM Depo-Medrol 40 mg [facility]#[id number] Reviewed 07/06/2016 12:00 AM CHEST X-RAY 4/> [...] Reviewed 12/23/2011 12:00 AM Decadron 1 mg [facility]#[id number] (Jr) Reviewed 12/23/2011 12:00 AM Depo-Medrol 80 mg [facility]#[id number]-Hintpohe Reviewed 11/02/2016 11:45 AM URINALYSIS AUTO W/O SCOPE Reviewed 11/23/2016 12:00 AM COMPLETE CBC W/AUTO DIFF WBC Reviewed 11/23/2016 12:00 AM COMPREHEN METABOLIC PANEL Reviewed 11/23/2016 12:00 AM CHEST X-RAY 2VW FRONTAL&LATL Reviewed 11/23/2016 12:00 AM FIBRIN DEGRADE SEMIQUANT Reviewed 11/23/2016 12:00 AM ASSAY OF TROPONIN QUANT Reviewed 11/23/2016 12:00 AM ELECTROCARDIOGRAM TRACING Returned 12/02/2016 12:00 AM X-RAY EXAM OF ABDOMEN Returned 12/15/2016 12:00 AM X-RAY EXAM RIBS UNI 2 VIEWS Reviewed 12/20/2016 12:00 AM INJECT SPINE LUMBAR/SACRAL Reviewed 12/20/2016 12:00 AM INJECT SPINE CERV/THORACIC Reviewed 02/09/2012 12:00 AM THER/PROPH/DIAG INJ SC/IM Reviewed 02/09/2012 12:00 AM Decadron 1 mg [place]#[id number] (Jr) Reviewed 02/09/2012 12:00 AM Depo-Medrol 80 mg NDC#[id number]-Nyzmnrxf Reviewed 03/15/2012 12:00 AM N BLOCK INJ OCCIPITAL Reviewed 03/15/2012 12:00 AM Kenalog Lz-[address]-20 ANNA Reviewed 04/11/2012 12:00 AM COMPLETE CBC W/AUTO DIFF WBC Reviewed 04/11/2012 12:00 AM COMPREHEN METABOLIC PANEL Reviewed 04/11/2012 12:00 AM LIPID PANEL Reviewed 04/11/2012 12:00 AM ASSAY THYROID STIM HORMONE Reviewed 04/11/2012 12:00 AM DESTRUCT PREMALG LES 2-14 Reviewed 06/20/2012 12:00 AM THER/PROPH/DIAG INJ SC/IM Reviewed 06/20/2012 12:00 AM Decadron, Per 1 Mg ND# [address]-31 Reviewed 06/20/2012 12:00 AM Depo-Medrol, Per 80 Mg ND#9309-5553-44 Reviewed 09/06/2012 12:00 AM N BLOCK INJ OCCIPITAL Reviewed 09/06/2012 12:00 AM Kenalog Dc-[address]-20 ANNA Reviewed 09/06/2012 12:00 AM X-RAY EXAM RIBS UNI 2 VIEWS Reviewed 09/26/2012 12:00 AM THER/PROPH/DIAG INJ SC/IM Reviewed 09/26/2012 12:00 AM Decadron, Per 1 Mg ND# [address]-48 Reviewed 09/26/2012 12:00 AM Depo-Medrol, Per 80 Mg ND#0042-8926-93 Reviewed 10/03/2012 12:00 AM URINALYSIS AUTO W/O SCOPE Reviewed 10/03/2012 12:00 AM THER/PROPH/DIAG INJ SC/IM Reviewed 10/03/2012 12:00 AM Toradol 60 Mg ND#0639-0110-38 Reviewed 10/03/2012 12:00 AM Phenergan, 25Mg ND#7967-3559-13 Reviewed 10/19/2012 12:00 AM N BLOCK INJ OCCIPITAL Reviewed 10/19/2012 12:00 AM Kenalog, Per 10 Mg [facility]#9905-0055-42 Reviewed 10/19/2012 12:00 AM Toradol 30 Mg [facility]#8879-9454-35 Reviewed 10/19/2012 12:00 AM THER/PROPH/DIAG INJ SC/IM Reviewed 10/31/2012 12:00 AM COMPLETE CBC W/AUTO DIFF WBC Reviewed 10/31/2012 12:00 AM COMPREHEN METABOLIC PANEL Reviewed 10/31/2012 12:00 AM LIPID PANEL Reviewed 10/31/2012 12:00 AM ELECTROCARDIOGRAM COMPLETE Reviewed 11/03/2012 12:[address] THORAX W/O & W/DYE Reviewed 11/08/2012 12:00 AM N BLOCK INJ OCCIPITAL Reviewed 11/08/2012 12:00 AM Kenalog Gs-[address]-20 ANNA Reviewed 11/27/2012 12:00 AM COMPLETE CBC [...] 12:00 AM Decadron, Per 1 Mg [facility]# [address]-71 Reviewed 01/25/2013 12:00 AM Depo-Medrol, Per 80 Mg [facility]#8276-8330-62 Reviewed 01/26/2013 12:00 AM IMMUNOTHERAPY ONE INJECTION [...] 12:00 AM Decadron, Per 1 Mg [facility]# [address]-81 Reviewed 05/16/2013 12:00 AM Depo-Medrol, Per 80 Mg [facility]#0617-2974-37 Reviewed 05/31/2013 12:00 AM IMMUNOTHERAPY INJECTIONS Reviewed 06/08/2013 12:00 AM IMMUNOTHERAPY INJECTIONS Reviewed 06/14/2013 12:00 AM IMMUNOTHERAPY INJECTIONS Reviewed 06/28/2013 12:00 AM IMMUNOTHERAPY INJECTIONS Reviewed 07/12/2013 12:00 AM X-RAY EXAM RIBS UNI 2 VIEWS Reviewed 07/18/2013 12:00 AM Toradol 60 Mg [facility]#8273-6812-26 Reviewed 07/18/2013 12:00 AM THER/PROPH/DIAG INJ SC/IM Reviewed 08/23/2013 12:00 AM COMPLETE CBC W/AUTO DIFF WBC Reviewed 08/23/2013 12:00 AM COMPREHEN METABOLIC PANEL Reviewed 08/23/2013 12:00 AM LIPID PANEL Reviewed 08/31/2013 12:00 AM X-RAY EXAM OF LOWER LEG Reviewed 09/04/2013 12:00 AM IMMUNOTHERAPY INJECTIONS Reviewed 09/14/2013 12:00 AM THER/PROPH/DIAG INJ SC/IM Reviewed 09/14/2013 12:00 AM Decadron, Per 1 Mg [facility]# [address]-19 Reviewed 09/14/2013 12:00 AM Depo-Medrol, Per 80 Mg [facility]#1489-7290-17 Reviewed 09/20/2013 12:00 AM IMMUNOTHERAPY INJECTIONS Reviewed [...] INJ OCCIPITAL Reviewed 12/10/2009 12:00 AM Kenalog Lf-[address]-20 ANNA Reviewed 12/16/2009 12:00 AM HIV-1ANTIBODY Reviewed 12/16/2009 12:00 AM COMPLETE CBC W/AUTO DIFF WBC Reviewed 12/16/2009 12:00 AM METABOLIC PANEL TOTAL CA Reviewed 12/16/2009 12:00 AM Type and screen Reviewed 12/16/2009 12:00 AM PROTHROMBIN TIME Reviewed 12/16/2009 12:00 AM THROMBOPLASTIN TIME PARTIAL Reviewed 03/18/2010 12:00 AM DRAIN/INJ JOINT/BURSA W/O US Reviewed 03/18/2010 12:00 AM Kenalog So-[address]-20 ANNA Reviewed 11/21/2013 12:00 AM RADEX HAND MINIMUM 3 VIEWS Reviewed 06/03/2010 12:00 AM INJ TRIGGER POINT 1/2 MUSCL Reviewed 06/03/2010 12:00 AM Kenalog per 10Mg [facility]#[address]-92(Niall) Reviewed 12/05/2013 12:00 AM COMPLETE CBC W/AUTO [...] Reviewed 07/23/2010 12:00 AM Kenalog per 10Mg Im-[facility]#[address]-78(Niall) Reviewed 2014 12:00 AM COMPLETE CBC W/AUTO [...] INJ OCCIPITAL Reviewed 10/01/2010 12:00 AM Kenalog Jc-[address]-20 ANNA Reviewed 07/25/2014 12:00 AM THER/PROPH/DIAG INJ [...] 141 Influenza 04/24/2014 sanofi pasteur PMC Fluzone [id number] Intramuscular Left Upper Arm 02/27/2014 01/15/2014 141 Influenza 02/13/2015 sanofi pasteur PMC Fluzone [id number] Intramuscular Left Deltoid 02/13/2015 01/03/2015 140 Tdap 06/06/2015 [employer] SKB BOOSTRIX [id number] Intramuscular Left Deltoid 06/06/2015 07/23/2014 115 Influenza 03/18/2016 [facility] Fluzone [id number] Intramuscular Left Deltoid 03/17/2016 01/03/2015 141 History [...] Muscle Spasm Feb 6 2011 1:58PM Headache b 9 2011 [...] Number Start Date Medicare RHC Medicare RHC [id number] N/A [facility] - RHC - [facility] RHC Comm [id number] N/A Medicare Part A Medicare - Lab/Xray [id number] N/A Medicare Part B Medicare Of [place] [id number] Monday, February 28, 2000 [place] [facility] [place] [id number] Tuesday, November 10, 2009 Medicare Part A Medicare Part A [id number] N/A [place] [employer] - RHC [place] [employer] - RHC [id number] May [facility] Comm Plan of [id number] Wednesday, May 30, 2012 History of Encounters Visit Date Visit Type Provider 02/02/2017 Office visit Heena Dumont MD 01/07/2017 Office visit Riccardo Cardoza MD 01/03/2017 Office visit Heena Dumont MD 12/15/2016 Office visit Kaylynn Mendez VISITING TEACHER 12/02/2016 Office visit Heena Dumont MD 11/23/2016 [facility] Eliseo Hoskins MD 11/23/2016 Office visit Kaylynn Mendez VISITING TEACHER 11/17/2016 Office visit Kaylynn Mendez VISITING TEACHER 11/05/2016 Office visit Riccardo Cardoza MD 11/02/2016 Office visit Heena Dumont MD 10/06/2016 Office visit Kaylynn Mendez VISITING TEACHER 09/22/2016 Office visit Heena Dumont MD 09/09/2016 Office visit Kaylynn Mendez VISITING TEACHER 08/27/2016 Office visit Riccardo Cardoza MD 08/26/2016 Office visit Heena Dumont MD 07/09/2016 Office visit Riccardo Cardoza MD 07/06/2016 Office visit Heena Dumont MD 06/18/2016 Office visit Kaylynn Mendez VISITING TEACHER 06/07/2016 Office visit Sundeep Russell VISITING TEACHER 06/04/2016 Office visit Heena Dumont MD 05/13/2016 Office visit Heena Dumont MD 05/03/2016 Office visit Heena Dumont MD 04/26/2016 Office visit Kaylynn Mendez VISITING TEACHER 04/14/2016 Office visit Heena Dumont MD 04/13/2016 Office visit Kaylynn Mendez VISITING TEACHER 04/02/2016 Office visit Lena El VISITING TEACHER 04/02/2016 Office visit Heena Dumont MD 03/26/2016 Office visit Yesica Falcon VISITING TEACHER 03/17/2016 Office visit Heena Dumont MD 03/05/2016 Office visit Kaylynn Mendez VISITING TEACHER 02/16/2016 Office visit Heena Dumont MD 02/14/2016 Office visit Na Jones VISITING TEACHER 01/16/2016 Office visit Heena Dumont MD 12/16/2015 Office visit Heena Dumont MD 11/24/2015 Office visit Kaylynn Mendez VISITING TEACHER 11/18/2015 Office visit Heena Dumont MD 11/03/2015 Office visit Sundeep Russell VISITING TEACHER 10/20/2015 Office visit Kaylynn Mendez VISITING TEACHER 09/23/2015 Office visit Kaylynn Mendez VISITING TEACHER 09/16/[address] Pepe Figueroa MD 09/02/2015 Office visit Kaylynn Mendez VISITING TEACHER 09/01/2015 Office visit Kaylynn Mendez VISITING TEACHER 07/30/2015 Office visit Heena Dumont MD 07/15/2015 Office visit Kaylynn Mendez VISITING TEACHER 07/04/2015 Office visit Heena Dumont MD 06/06/2015 Office visit Heena Dumont MD 06/06/2015 Office visit Kaylynn Mendez VISITING TEACHER 06/02/2015 Office visit Kaylynn Mendez VISITING TEACHER 05/26/2015 Office visit Kaylynn Mendez VISITING TEACHER 05/20/2015 Office visit Kaylynn Mendez VISITING TEACHER 05/08/2015 Office visit Heena Dumont MD 05/06/2015 Office visit Kaylynn Mendez VISITING TEACHER 04/29/2015 Office visit Kaylynn Mendez VISITING TEACHER 03/27/2015 Voided Brittni Yanez VISITING TEACHER 03/21/2015 Office visit Heena Dumont MD 03/12/2015 Office visit Kaylynn Mendez VISITING TEACHER 02/26/2015 Office visit Brittni Yanez VISITING TEACHER 02/13/2015 Office visit Heena Dumont MD 01/15/2015 Office visit Brittni Yanez VISITING TEACHER 01/13/2015 Office visit Heena Dumont MD 01/08/[address] Carol Fowler MD 01/01/2015 Office visit Brittni Yanez VISITING TEACHER 12/13/2014 Office visit Heena Dumont MD 11/27/2014 Office visit Kaylynn Mendez VISITING TEACHER 11/14/2014 Office visit Heena Dumont MD 10/18/2014 Office visit Heena Dumont MD 10/17/2014 [facility] John Hoskins MD 10/09/2014 Office visit Heena Dumont MD 09/25/2014 Office visit Heena Dumont MD 09/17/2014 Office visit Kaylynn Mendez VISITING TEACHER 09/04/2014 Office visit Heena Dumont MD 08/28/2014 Office visit Kaylynn Mendez VISITING TEACHER 08/23/2014 [facility] John Hoskins MD 08/01/2014 Office visit Kaylynn Mendez VISITING TEACHER 07/29/2014 Office visit Heena Dumont MD 07/25/2014 Nurse visit Heena Dumont MD 07/17/2014 Office visit Kaylynn Mendez VISITING TEACHER 07/11/2014 Office visit Heena Dumont MD 07/01/2014 Office visit Heena Dumont MD 06/25/2014 Office visit Kaylynn Mendez VISITING TEACHER 06/12/2014 Office visit Kaylynn Mendez VISITING TEACHER 06/06/2014 Office visit Kaylynn Mendez VISITING TEACHER 05/27/2014 Office visit Heena Dumont MD 04/20/2014 Office visit Yesica Falcon VISITING TEACHER 03/29/2014 Office visit Na Jones VISITING TEACHER 03/15/2014 Office visit Heena Dumont MD 2014 Office visit Heena Dumont MD 2014 [facility] John Hoskins MD 02/27/2014 Nurse visit Heena Dumont MD 02/13/2014 Office visit Lena El VISITING TEACHER 02/07/2014 Office visit Heena Dumont MD 02/03/2014 Office visit Na Jones VISITING TEACHER 01/30/2014 Office visit Kaylynn Mendez VISITING TEACHER 01/24/2014 Office visit Sundeep Russell VISITING TEACHER 01/16/2014 Office visit Kaylynn Mendez VISITING TEACHER 01/10/2014 Nurse visit Kaylynn Mendez VISITING TEACHER 01/08/2014 Office visit Kaylynn Mendez VISITING TEACHER 12/05/2013 Office visit Kaylynn Mendez VISITING TEACHER 11/21/2013 Office visit Kaylynn Mendez VISITING TEACHER 10/23/2013 Office visit Brittni Yanez VISITING TEACHER 10/17/2013 Nurse visit Heena Dumont MD 10/12/2013 Office visit Kaylynn Mendez VISITING TEACHER 10/02/2013 Office visit Heena Dumont MD 09/20/2013 Nurse visit Kaylynn Mendez VISITING TEACHER 09/20/2013 Voided Heena Dumont MD 09/14/2013 Office visit Kaylynn Mendez VISITING TEACHER 09/05/2013 Office visit Sundeep Russell VISITING TEACHER 09/04/2013 Nurse visit Kaylynn Walker VISITING TEACHER 08/31/2013 Office visit Kaylynn Walker VISITING TEACHER 08/23/2013 Office visit Heena Dumont MD 08/10/2013 Office visit Kaylynn Walker VISITING TEACHER 07/25/2013 Office visit Kaylynn Walker VISITING TEACHER 07/18/2013 Office visit Kaylynn Walker VISITING TEACHER 07/12/2013 Office visit Kaylynn Walker VISITING TEACHER 06/28/2013 Nurse visit Kaylynn Walker VISITING TEACHER 06/14/2013 Nurse visit Kaylynn Walker VISITING TEACHER 06/08/2013 Nurse visit Kaylynn Walker VISITING TEACHER 05/31/2013 Nurse visit Chadd Norris DO 05/18/2013 Office visit Terese Davidson MD 05/16/2013 Office visit Kaylynn Walker VISITING TEACHER 05/09/2013 Office visit Kaylynn Walker VISITING TEACHER 04/29/2013 [facility] John Hoskins MD 04/25/2013 Nurse visit Kaylynn Walker VISITING TEACHER 04/17/2013 Office visit Kaylynn Walker VISITING TEACHER 04/03/2013 Nurse visit Kaylynn Walker VISITING TEACHER 04/03/2013 Office visit Terese Davidson MD 03/28/2013 Office visit Sundeep Russell VISITING TEACHER 03/21/2013 Office visit Kaylynn Mendez VISITING TEACHER 03/20/2013 Office visit Terese Davidson MD 03/14/2013 Nurse visit Kaylynn Walker VISITING TEACHER 03/05/2013 Nurse visit Kaylynn Walker VISITING TEACHER 02/19/2013 Office visit Terese Davidson MD 02/16/2013 Nurse visit Kaylynn Walker VISITING TEACHER 02/09/2013 Office visit Sundeep Russell VISITING TEACHER 02/08/2013 Nurse visit Kaylynn Walker VISITING TEACHER 02/01/2013 Nurse visit Kaylynn Walker VISITING TEACHER 01/26/2013 Nurse visit Sabrina Mendez TEMPLER HEAD 01/25/2013 Office visit Kaylynn Walker VISITING TEACHER 01/22/2013 Office visit Yoan Castaneda MD 01/18/2013 Nurse visit Kaylynn Walker VISITING TEACHER 01/11/2013 Nurse visit Kaylynn Walker VISITING TEACHER 01/05/2013 Nurse visit Kaylynn Walker VISITING TEACHER 12/29/2012 Office visit Kaylynn Walker VISITING TEACHER 11/27/2012 Office visit Kaylynn Walker VISITING TEACHER 11/08/2012 Office visit Odell Tierney MD 11/08/2012 Voided Odell Tierney MD 11/07/2012 Office visit Kaylynn Mendez VISITING TEACHER 10/31/2012 [facility] John Hoskins MD 10/31/2012 Office visit Kaylynn Walker VISITING TEACHER 10/19/2012 Office visit Genoveva Ayala VISITING TEACHER 10/10/2012 Office visit Kaylynn Mendez VISITING TEACHER 10/03/2012 Office visit Kaylynn Mendez VISITING TEACHER 09/26/2012 Office visit Kaylynn Mendez VISITING TEACHER 09/06/2012 Office visit Kaylynn Mendez VISITING TEACHER 09/06/2012 Office visit Odell Tierney MD 08/31/2012 Voided Kaylynn Mendez VISITING TEACHER 07/28/2012 Office visit Kaylynn Mendez VISITING TEACHER 07/27/2012 Office visit David Ar DO 07/20/2012 Hospital David Jazieluman DO 07/13/2012 Hospital David Jazieluman DO 07/11/2012 Office visit Kaylynn Mendez VISITING TEACHER 06/27/2012 [facility] Odell Tierney MD 06/21/2012 Office visit David Joyner DO 06/21/2012 Office visit Odell Tierney MD 06/20/2012 Office visit Brittni Yanez VISITING TEACHER 06/06/2012 Office visit Odell Tierney MD 05/03/2012 Office visit Kaylynn Mendez VISITING TEACHER 04/28/2012 Office visit Brittni Yanez VISITING TEACHER 04/11/2012 Office visit Kaylynn Mendez VISITING TEACHER 04/06/2012 [facility] John Hoskins MD 03/30/2012 Office visit Kaylynn Mendez VISITING TEACHER 03/15/2012 Office visit Kaylynn Mendez VISITING TEACHER 03/15/2012 Office visit Odell Tierney MD 02/09/2012 Office visit Kaylynn Mendez VISITING TEACHER 12/23/2011 Office visit Kaylynn Mendez VISITING TEACHER 11/02/2011 Office visit Kaylynn Mendez VISITING TEACHER 10/14/2011 Office visit Kaylynn Mendez VISITING TEACHER 09/27/2011 Office visit Kaylynn Mendez VISITING TEACHER 08/19/2011 Hospital John Hoskins MD 08/18/2011 [facility] John Hoskins MD 08/18/2011 Office visit Kaylynn Mendez VISITING TEACHER 08/02/2011 Office visit Kaylynn Mendez VISITING TEACHER 07/08/2011 Office visit Kaylynn Mendez VISITING TEACHER 07/05/2011 Office visit Odell Tierney MD 06/15/2011 Office visit Kaylynn Mendez VISITING TEACHER 05/14/2011 Office visit Kaylynn Mendez VISITING TEACHER 05/11/2011 Office visit Odell Tierney MD 04/28/2011 Office visit Kaylynn Mendez VISITING TEACHER 03/02/2011 Office visit Chadd Norris DO [...]
--- OUTSIDE RECORDS SUMMARY | 2018-05-09 22:49 | XMS REPORT ---
Author Author Heena Dumont Organization [facility] Address [address] [place], [place] [id number] Care Team Providers Care Scheme Technician Name Role Phone Heena Dumont PCP Heena [...] MAN DIFF IF IND). 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 xssjvbju-wcdwjanap-KG 3.5-10,000-1 mg/mL-unit/mL-% otic drops,suspension 201607/23/2016 instill 4 [...] HC BMI BSA BMI Percentile O2 Sat(%) 09/22/2016 9:59:00 AM 114 mmHg 70 mmHg [...] 04/28/2011 12:00 AM Decadron [address] [facility]#[id number] (Jr) Reviewed 04/28/2011 12:00 AM Depo-Medrol 80 mg ND#[id number]-Lmcnmdki Reviewed 09/02/2015 12:00 AM Toradol 60 Mg NDC#9661-0993-24 Reviewed 09/02/2015 12:00 AM Phenergan, Up to 50 Mg RHC Medicaid Reviewed 09/16/2015 12:00 AM Toradol 60 Mg ND#7624-7194-10 Reviewed 09/16/2015 12:00 AM Phenergan Up to 50 mg RHC Medicare Reviewed 05/11/2011 12:00 AM N BLOCK INJ OCCIPITAL Reviewed 05/11/2011 12:00 AM Kenalog Bu-[address]-20 ANNA Reviewed 11/13/2015 12:00 AM ASSAY OF [...] SC/IM Reviewed 07/08/2011 12:00 AM Toradol,15mg [facility]#[id number], [place] Reviewed 07/08/2011 12:00 AM Phenergan 50 Mg Im [facility] 5659-5617-19 [place] Reviewed 01/21/2016 12:00 AM ECG MONIT/REPRT UP TO 48 HRS Returned 08/02/2011 12:00 AM THER/PROPH/DIAG INJ SC/IM Reviewed 08/02/2011 12:00 AM Decadron [address] [facility]#[id number] (Jr) Reviewed 08/02/2011 12:00 AM Depo-Medrol [address] [facility]#[id number]-Iozyuxes Reviewed 03/05/2016 12:00 AM COMPLETE CBC W/AUTO DIFF WBC Returned 03/05/2016 12:00 AM STREP A ASSAY W/OPTIC Returned 03/05/2016 12:00 AM C-REACTIVE PROTEIN Returned 03/18/2016 12:00 AM [facility] MED[facility] - flu vaccine administration Reviewed 03/18/2016 [...] 09/27/2011 12:00 AM Depo-Medrol [address] [facility]#[id number]-Vuaaylch Reviewed 07/06/2016 12:00 AM CHEST X-RAY 4/> [...] Reviewed 12/23/2011 12:00 AM Decadron 1 mg NDC#[id number] (Jr) Reviewed 12/23/2011 12:00 AM Depo-Medrol 80 mg NDC#[id number]-Zvafqspd Reviewed 02/09/2012 12:00 AM THER/PROPH/DIAG INJ SC/IM Reviewed 02/09/2012 12:00 AM Decadron 1 mg NDC#25093710440 (Jr) Reviewed 02/09/2012 12:00 AM Depo-Medrol 80 mg NDC#[id number]-Wdiemjbv Reviewed 03/15/2012 12:00 AM N BLOCK INJ OCCIPITAL Reviewed 03/15/2012 12:00 AM Kenalog Gj-[address]-20 ANNA Reviewed 04/11/2012 12:00 AM COMPLETE CBC W/AUTO DIFF WBC Reviewed 04/11/2012 12:00 AM COMPREHEN METABOLIC PANEL Reviewed 04/11/2012 12:00 AM LIPID PANEL Reviewed 04/11/2012 12:00 AM ASSAY THYROID STIM HORMONE Reviewed 06/20/2012 12:00 AM THER/PROPH/DIAG INJ SC/IM Reviewed 06/20/2012 12:00 AM Decadron, Per 1 Mg ND# [address]-50 Reviewed 06/20/2012 12:00 AM Depo-Medrol, Per 80 Mg ND#8508-3875-45 Reviewed 09/06/2012 12:00 AM N BLOCK INJ OCCIPITAL Reviewed 09/06/2012 12:00 AM Kenalog Dn-[address]-20 ANNA Reviewed 09/06/2012 12:00 AM X-RAY EXAM RIBS UNI 2 VIEWS Reviewed 09/26/2012 12:00 AM THER/PROPH/DIAG INJ SC/IM Reviewed 09/26/2012 12:00 AM Decadron, Per 1 Mg ND# [address]-95 Reviewed 09/26/2012 12:00 AM Depo-Medrol, Per [address] [facility]#5844-6697-63 Reviewed 10/03/2012 12:00 AM URINALYSIS AUTO W/O SCOPE Reviewed 10/03/2012 12:00 AM THER/PROPH/DIAG INJ SC/IM Reviewed 10/03/2012 12:00 AM Toradol [address] [facility]#9097-6119-28 Reviewed 10/03/2012 12:00 AM Phenergan, 25Mg [facility]#6739-7500-30 Reviewed 10/19/2012 12:00 AM N BLOCK INJ OCCIPITAL Reviewed 10/19/2012 12:00 AM Kenalog, Per [address] [facility]#2203-6555-46 Reviewed 10/19/2012 12:00 AM Toradol [address] [facility]#2965-6838-49 Reviewed 10/19/2012 12:00 AM THER/PROPH/DIAG INJ SC/IM Reviewed 10/31/2012 12:00 AM COMPLETE CBC W/AUTO DIFF WBC Reviewed 10/31/2012 12:00 AM COMPREHEN METABOLIC PANEL Reviewed 10/31/2012 12:00 AM LIPID PANEL Reviewed 11/03/2012 12:[address] THORAX W/O & W/DYE Reviewed 11/08/2012 12:00 AM N BLOCK INJ OCCIPITAL Reviewed 11/08/2012 12:00 AM Kenalog Sb-[address]-20 ANNA Reviewed 11/27/2012 12:00 AM COMPLETE CBC [...] 12:00 AM Decadron, Per [address] [facility]# [address]-71 Reviewed 01/25/2013 12:00 AM Depo-Medrol, Per [address] [facility]#3857-8885-67 Reviewed 01/26/2013 12:00 AM IMMUNOTHERAPY INJECTIONS Reviewed [...] 12:00 AM Decadron, Per [address] [facility]# [address]-37 Reviewed 05/16/2013 12:00 AM Depo-Medrol, Per [address] [facility]#4245-3134-84 Reviewed 05/31/2013 12:00 AM IMMUNOTHERAPY INJECTIONS Reviewed 06/08/2013 12:00 AM IMMUNOTHERAPY INJECTIONS Reviewed 06/14/2013 12:00 AM IMMUNOTHERAPY INJECTIONS Reviewed 06/28/2013 12:00 AM IMMUNOTHERAPY INJECTIONS Reviewed 07/12/2013 12:00 AM X-RAY EXAM RIBS UNI 2 VIEWS Reviewed 07/18/2013 12:00 AM Toradol [address] [facility]#1533-3690-75 Reviewed 07/18/2013 12:00 AM THER/PROPH/DIAG INJ SC/IM Reviewed 08/23/2013 12:00 AM COMPLETE CBC W/AUTO DIFF WBC Reviewed 08/23/2013 12:00 AM COMPREHEN METABOLIC PANEL Reviewed 08/23/2013 12:00 AM LIPID PANEL Reviewed 08/31/2013 12:00 AM X-RAY EXAM OF LOWER LEG Reviewed 09/04/2013 12:00 AM IMMUNOTHERAPY INJECTIONS Reviewed 09/14/2013 12:00 AM THER/PROPH/DIAG INJ SC/IM Reviewed 09/14/2013 12:00 AM Decadron, Per [address] [facility]# [address]-61 Reviewed 09/14/2013 12:00 AM Depo-Medrol, Per [address] [facility]#5281-1894-34 Reviewed 09/20/2013 12:00 AM IMMUNOTHERAPY INJECTIONS Reviewed [...] INJ OCCIPITAL Reviewed 12/10/2009 12:00 AM Kenalog Iv-[address]-20 ANNA Reviewed 12/16/2009 12:00 AM HIV-1ANTIBODY Reviewed 12/16/2009 12:00 AM COMPLETE CBC W/AUTO DIFF WBC Reviewed 12/16/2009 12:00 AM METABOLIC PANEL TOTAL CA Reviewed 12/16/2009 12:00 AM Type and screen Reviewed 12/16/2009 12:00 AM PROTHROMBIN TIME Reviewed 12/16/2009 12:00 AM THROMBOPLASTIN TIME PARTIAL Reviewed 03/18/2010 12:00 AM DRAIN/INJ JOINT/BURSA W/O US Reviewed 03/18/2010 12:00 AM Kenalog Qk-[address]-20 ANNA Reviewed 11/21/2013 12:00 AM RADEX HAND MINIMUM 3 VIEWS Reviewed 06/03/2010 12:00 AM INJ TRIGGER POINT 1/2 MUSCL Reviewed 06/03/2010 12:00 AM Kenalog per 10Mg Im-[facility]#[address]-36(Niall) Reviewed 12/05/2013 12:00 AM COMPLETE CBC W/AUTO [...] Reviewed 07/23/2010 12:00 AM Kenalog per 10Mg Im-[facility]#[address]-66(Niall) Reviewed 2014 12:00 AM COMPLETE CBC W/AUTO [...] INJ OCCIPITAL Reviewed 10/01/2010 12:00 AM Kenalog Cf-[address]-20 ANNA Reviewed 07/25/2014 12:00 AM THER/PROPH/DIAG INJ [...] Quant,IgM <0.80 RMSF , IgG, EIA Negative [facility] Spotted Fever,IgM 0.51 E. chaffeensis [...] 13.70 g/dLHCT 40.40 %MCV 93.0 fLMCH 31.50 pgHC 33.90 g/dLRDW SD 45 RDW CV 13.20 [...] Not Entered 03/31/2011 05/30/2016 141 Influenza 04/24/2014 [facility] Fluzone [id number] Intramuscular Left Upper Arm 02/27/2014 01/15/2014 141 Influenza 02/13/2015 [facility] Fluzone [id number] Intramuscular Left Deltoid 02/13/2015 01/03/2015 140 Tdap 06/06/2015 [employer] SKB BOOSTRIX [id number] Intramuscular Left Deltoid 06/06/2015 07/23/2014 115 Influenza 03/18/[address] [facility] Fluzone [id number] Intramuscular Left Deltoid 03/17/2016 01/03/2015 141 History [...] Cervical spinal stenosis b 2016 3:50PM Lumbago Feb 10 2016 3:25PM [...] 2016 10:05AM Polypharmacy Sep 22 2016 10:05AM Payers Insurance Name Company Name Plan Name Plan Number Policy Number Policy Group Number Start Date Medicare RHC Medicare RHC [id number] N/A [facility] Comm [id number] N/A Medicare Part A Medicare - Lab/Xray [id number] N/A Medicare Part B Medicare Of [place] [id number] Monday, February 28, 2000 [place] [employer] [place] [employer] [place] [id number] Tuesday, November 10, 2009 Medicare Part A Medicare Part A [id number] N/A [place] [employer] - [place] [employer] - RHC [id number] May [place] Comm Plan of [id number] Wednesday, May 30, 2012 History of Encounters Visit Date Visit Type Provider 09/22/2016 Office visit Heena Dumont MD 09/09/2016 Office visit Kaylynn Mendez APRN 08/27/2016 Office visit Riccardo Cardoza MD 08/26/2016 Office visit Heena Dumont MD 07/09/2016 Office visit Riccardo Cardoza MD 07/06/2016 Office visit Heena Dumont MD 06/18/2016 Office visit Kaylynn Mendez STONE CRUSHER OPERATOR 06/07/2016 Office visit Sundeep Russell STONE CRUSHER OPERATOR 06/04/2016 Office visit Heena Dumont MD 05/13/2016 Office visit Heena Dumont MD 05/03/2016 Office visit Heena Dumont MD 04/26/2016 Office visit Kaylynn Mendez STONE CRUSHER OPERATOR 04/14/2016 Office visit Heena Dumont MD 04/13/2016 Office visit Kaylynn Mendez STONE CRUSHER OPERATOR 04/02/2016 Office visit Lena El STONE CRUSHER OPERATOR 04/02/2016 Office visit Heena Dumont MD 03/26/2016 Office visit Yesica Falcon STONE CRUSHER OPERATOR 03/17/2016 Office visit Heena Dumont MD 03/05/2016 Office visit Kaylynn Mendez STONE CRUSHER OPERATOR 02/16/2016 Office visit Heena Dumont MD 02/14/2016 Office visit Na Jones STONE CRUSHER OPERATOR 01/16/2016 Office visit Heena Dumont MD 12/16/2015 Office visit Heena Dumont MD 11/24/2015 Office visit Kaylynn Mendez STONE CRUSHER OPERATOR 11/18/2015 Office visit Heena Dumont MD 11/03/2015 Office visit Sundeep Russell STONE CRUSHER OPERATOR 10/20/2015 Office visit Kaylynn Walker STONE CRUSHER OPERATOR 09/23/2015 Office visit Kaylynn Mendez STONE CRUSHER OPERATOR 09/16/[address] Pepe Figueroa MD 09/02/2015 Office visit Kaylynn Walker STONE CRUSHER OPERATOR 09/01/2015 Office visit Kaylynn Walker STONE CRUSHER OPERATOR 07/30/2015 Office visit Heena Dumont MD 07/15/2015 Office visit Kaylynn Mendez STONE CRUSHER OPERATOR 07/04/2015 Office visit Heena Dumont MD 06/06/2015 Office visit Heena Dumont MD 06/06/2015 Office visit Kaylynn Mendez STONE CRUSHER OPERATOR 06/02/2015 Office visit Kaylynn Walker STONE CRUSHER OPERATOR 05/26/2015 Office visit Kaylynn Walker STONE CRUSHER OPERATOR 05/20/2015 Office visit Kaylynn Walker STONE CRUSHER OPERATOR 05/08/2015 Office visit Heena Dumont MD 05/06/2015 Office visit Kaylynn Walker STONE CRUSHER OPERATOR 04/29/2015 Office visit Kaylynn Walker STONE CRUSHER OPERATOR 03/27/2015 Voided Brittni Yanez STONE CRUSHER OPERATOR 03/21/2015 Office visit Heena Dumont MD 03/12/2015 Office visit Kaylynn Mendez STONE CRUSHER OPERATOR 02/26/2015 Office visit Brittni Yanez STONE CRUSHER OPERATOR 02/13/2015 Office visit Heena Dumont MD 01/15/2015 Office visit Brittni Yanez STONE CRUSHER OPERATOR 01/13/2015 Office visit Heena Dumont MD 01/08/[address] Carol Fowler MD 01/01/2015 Office visit Brittni Yanez STONE CRUSHER OPERATOR 12/13/2014 Office visit Heena Dumont MD 11/27/2014 Office visit Kaylynn Mendez STONE CRUSHER OPERATOR 11/14/2014 Office visit Heena Dumont MD 10/18/2014 Office visit Heena Dumont MD 10/17/2014 [facility] Eliseo Hoskins MD 10/09/2014 Office visit Heena Dumont MD 09/25/2014 Office visit Heena Dumont MD 09/17/2014 Office visit Kaylynn Mendez STONE CRUSHER OPERATOR 09/04/2014 Office visit Heena Dumont MD 08/28/2014 Office visit Kaylynn Mendez STONE CRUSHER OPERATOR 08/23/2014 [facility] Eliseo Hoskins MD 08/01/2014 Office visit Kaylynn Mendez STONE CRUSHER OPERATOR 07/29/2014 Office visit Heena Dumont MD 07/25/2014 Nurse visit Heena Dumont MD 07/17/2014 Office visit Kaylynn Mendez STONE CRUSHER OPERATOR 07/11/2014 Office visit Heena Dumont MD 07/01/2014 Office visit Heena Dumont MD 06/25/2014 Office visit Kaylynn Mendez STONE CRUSHER OPERATOR 06/12/2014 Office visit Kaylynn Mendez STONE CRUSHER OPERATOR 06/06/2014 Office visit Kaylynn Mendez STONE CRUSHER OPERATOR 05/27/2014 Office visit Heena Dumont MD 04/20/2014 Office visit Yesica Falcon STONE CRUSHER OPERATOR 03/29/2014 Office visit Na Jones STONE CRUSHER OPERATOR 03/15/2014 Office visit Heena Dumont MD 2014 Office visit Heena Dumont MD 2014 [facility] John Hoskins MD 02/27/2014 Nurse visit Heena Dumont MD 02/13/2014 Office visit Lena El STONE CRUSHER OPERATOR 02/07/2014 Office visit Heena Dumont MD 02/03/2014 Office visit Na Jones STONE CRUSHER OPERATOR 01/30/2014 Office visit Kaylynn Mendez STONE CRUSHER OPERATOR 01/24/2014 Office visit Sundeep Russell STONE CRUSHER OPERATOR 01/16/2014 Office visit Kaylynn Mendez STONE CRUSHER OPERATOR 01/10/2014 Nurse visit Kaylynn Mendez STONE CRUSHER OPERATOR 01/08/2014 Office visit Kaylynn Mendez STONE CRUSHER OPERATOR 12/05/2013 Office visit Kaylynn Mendez STONE CRUSHER OPERATOR 11/21/2013 Office visit Kaylynn Walker STONE CRUSHER OPERATOR 10/23/2013 Office visit Brittni Yanez STONE CRUSHER OPERATOR 10/17/2013 Nurse visit Heena Dumont MD 10/12/2013 Office visit Kaylynn Mendez STONE CRUSHER OPERATOR 10/02/2013 Office visit Heena Dumont MD 09/20/2013 Nurse visit Kaylynn Walker STONE CRUSHER OPERATOR 09/20/2013 Voided Heena Dumont MD 09/14/2013 Office visit Kaylynn Walker STONE CRUSHER OPERATOR 09/05/2013 Office visit Sundeep Russell STONE CRUSHER OPERATOR 09/04/2013 Nurse visit Kaylynn Walker STONE CRUSHER OPERATOR 08/31/2013 Office visit Kaylynn Walker STONE CRUSHER OPERATOR 08/23/2013 Office visit Heena Dumont MD 08/10/2013 Office visit Kaylynn Walker STONE CRUSHER OPERATOR 07/25/2013 Office visit Kaylynn Walker STONE CRUSHER OPERATOR 07/18/2013 Office visit Kaylynn Walker STONE CRUSHER OPERATOR 07/12/2013 Office visit Kaylynn Walker STONE CRUSHER OPERATOR 06/28/2013 Nurse visit Kaylynn Walker STONE CRUSHER OPERATOR 06/14/2013 Nurse visit Kaylynn Walker STONE CRUSHER OPERATOR 06/08/2013 Nurse visit Kaylynn Walker STONE CRUSHER OPERATOR 05/31/2013 Nurse visit Chadd Norris DO 05/18/2013 Office visit Terese Davidson MD 05/16/2013 Office visit Kaylynn Mendez STONE CRUSHER OPERATOR 05/09/2013 Office visit Kaylynn Mendez STONE CRUSHER OPERATOR 04/29/2013 [facility] John Hoskisn MD 04/25/2013 Nurse visit Kalyynn Walker STONE CRUSHER OPERATOR 04/17/2013 Office visit Kaylynn Walker STONE CRUSHER OPERATOR 04/03/2013 Nurse visit Kaylynn Walker STONE CRUSHER OPERATOR 04/03/2013 Office visit Terese Davidson MD 03/28/2013 Office visit Sundeep Russell STONE CRUSHER OPERATOR 03/21/2013 Office visit Kaylynn Mendez STONE CRUSHER OPERATOR 03/20/2013 Office visit Terese Davidson MD 03/14/2013 Nurse visit Kaylynn Mendez STONE CRUSHER OPERATOR 03/05/2013 Nurse visit Kaylynn Mendez STONE CRUSHER OPERATOR 02/19/2013 Office visit Terese Davidson MD 02/16/2013 Nurse visit Kaylynn Mendez STONE CRUSHER OPERATOR 02/09/2013 Office visit Sundeep Russell STONE CRUSHER OPERATOR 02/08/2013 Nurse visit Kaylynn Walker STONE CRUSHER OPERATOR 02/01/2013 Nurse visit Kaylynn Walker STONE CRUSHER OPERATOR 01/26/2013 Nurse visit Sabrina Mendez FUR COAT SEWER 01/25/2013 Office visit Kaylynn Mendez STONE CRUSHER OPERATOR 01/22/2013 Office visit Yoan Castaneda MD 01/18/2013 Nurse visit Kaylynn Walker STONE CRUSHER OPERATOR 01/11/2013 Nurse visit Kaylynn Walker STONE CRUSHER OPERATOR 01/05/2013 Nurse visit Kaylynn Walker STONE CRUSHER OPERATOR 12/29/2012 Office visit Kaylynn Walker STONE CRUSHER OPERATOR 11/27/2012 Office visit Kaylynn Andrea STONE CRUSHER OPERATOR 11/08/2012 Office visit Odell Tierney MD 11/08/2012 Voided Odell Tierney MD 11/07/2012 Office visit Kaylynn Mendez STONE CRUSHER OPERATOR 10/31/2012 [facility] John Hoskins MD 10/31/2012 Office visit Kaylynn Walker STONE CRUSHER OPERATOR 10/19/2012 Office visit Genoveva Ayala STONE CRUSHER OPERATOR 10/10/2012 Office visit Kaylynn Walker STONE CRUSHER OPERATOR 10/03/2012 Office visit Kaylynn Walker STONE CRUSHER OPERATOR 09/26/2012 Office visit Kaylynn Walker STONE CRUSHER OPERATOR 09/06/2012 Office visit Kaylynn Walker STONE CRUSHER OPERATOR 09/06/2012 Office visit Odell Tierney MD 08/31/2012 Voided Kaylynn Mendez STONE CRUSHER OPERATOR 07/28/2012 Office visit Kaylynn Mendez STONE CRUSHER OPERATOR 07/27/2012 Office visit David Joyner DO 07/20/2012 [facility] DO 07/13/2012 [facility] DO 07/11/2012 Office visit Kaylynn Mendez STONE CRUSHER OPERATOR 06/27/2012 [facility] Odell Tierney MD 06/21/2012 Office visit David Joyner DO 06/21/2012 Office visit Odell Tierney MD 06/20/2012 Office visit Brittni Yanez STONE CRUSHER OPERATOR 06/06/2012 Office visit Odell Tierney MD 05/03/2012 Office visit Kaylynn Mendez STONE CRUSHER OPERATOR 04/28/2012 Office visit Brittni Yanez STONE CRUSHER OPERATOR 04/11/2012 Office visit Kaylynn Mendez STONE CRUSHER OPERATOR 04/06/2012 [facility] John Hoskins MD 03/30/2012 Office visit Kaylynn Mendez STONE CRUSHER OPERATOR 03/15/2012 Office visit Kaylynn Mendez STONE CRUSHER OPERATOR 03/15/2012 Office visit Odell Tierney MD 02/09/2012 Office visit Kaylynn Mendez STONE CRUSHER OPERATOR 12/23/2011 Office visit Kaylynn Walker STONE CRUSHER OPERATOR 11/02/2011 Office visit Kaylynn Walker STONE CRUSHER OPERATOR 10/14/2011 Office visit Kaylynn Mendez STONE CRUSHER OPERATOR 09/27/2011 Office visit Kaylynn Mendez STONE CRUSHER OPERATOR 08/19/2011 [facility] John Hoskins MD 08/18/2011 [facility] John Hoskins MD 08/18/2011 Office visit Kaylynn Mendez STONE CRUSHER OPERATOR 08/02/2011 Office visit Kaylynn Mendez STONE CRUSHER OPERATOR 07/08/2011 Office visit Kaylynn Mendez STONE CRUSHER OPERATOR 07/05/2011 Office visit Odell Tierney MD 06/15/2011 Office visit Kaylynn Mendez STONE CRUSHER OPERATOR 05/14/2011 Office visit Kaylynn Mendez STONE CRUSHER OPERATOR 05/11/2011 Office visit Odell Tierney MD 04/28/2011 Office visit Kaylynn Mendez STONE CRUSHER OPERATOR 03/02/2011 Office visit Chadd Norris DO [...]
--- OUTSIDE RECORDS SUMMARY | 2018-05-09 22:55 | XMS REPORT ---
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 Do not crush, chew and/or divide. for 30 days Zyrtec-D 5-120 mg oral tablet extended release 12 hr 06/18/2016 take 1 tablet by oral route every 12 hours Name [...] 08/27/2014 use as directed for 99 days Aurora 5-325 mg oral tablet 06/17/2014 06/27/2014 take [...] a day as needed for 30 days rpqdjnrk-hurxrdwnm-OY 3.5-10,000-1 mg/mL-unit/mL-% otic drops,suspension 201401/08/2015 instill 4 [...] Reviewed 04/28/2011 12:00 AM Decadron 1 mg N[facility]#[id number] (Jr) Reviewed 04/28/2011 12:00 AM Depo-Medrol 80 mg NDC#[id number]-Furmjcui Reviewed 09/02/2015 12:00 AM Toradol 60 Mg ND#0530-3655-57 Reviewed 09/02/2015 12:00 AM Phenergan, Up to 50 Mg RHC Medicaid Reviewed 09/16/2015 12:00 AM Toradol 60 Mg NDC#6627-5174-46 Reviewed 09/16/2015 12:00 AM Phenergan Up to 50 mg RHC Medicare Reviewed 05/11/2011 12:00 AM N BLOCK INJ OCCIPITAL Reviewed 05/11/2011 12:00 AM Kenalog Tw-[address]-20 ANNA Reviewed 11/13/2015 12:00 AM ASSAY OF [...] INJ SC/IM Reviewed 07/08/2011 12:00 AM Toradol,15mg [facility]#[id number], [place] Reviewed 07/08/2011 12:00 AM Phenergan 50 Mg Im [facility] [id number] [facility] Reviewed 01/21/2016 12:00 AM ECG MONIT/REPRT UP TO 48 HRS Returned 08/02/2011 12:00 AM THER/PROPH/DIAG INJ SC/IM Reviewed 08/02/2011 12:00 AM Decadron 1 mg [facility]#[id number] (Jr) Reviewed 08/02/2011 12:00 AM Depo-Medrol 80 mg [facility]#[id number]-Tlrtfpbq Reviewed 03/05/2016 12:00 AM COMPLETE CBC W/AUTO DIFF WBC Returned 03/05/2016 12:00 AM STREP A ASSAY W/OPTIC Returned 03/05/2016 12:00 AM C-REACTIVE PROTEIN Returned 03/18/2016 12:00 AM [facility] MEDICARE - flu vaccine administration Reviewed 03/18/2016 [...] Reviewed 09/27/2011 12:00 AM Depo-Medrol 80 mg N[facility]#[id number]-Qewqcfgd Reviewed 10/14/2011 12:00 AM X-RAY EXAM OF ABDOMEN Reviewed 10/14/2011 12:00 AM URINALYSIS AUTO W/O SCOPE Reviewed 12/23/2011 12:00 AM THER/PROPH/DIAG INJ SC/IM Reviewed 12/23/2011 12:00 AM Decadron 1 mg [facility]#[id number] (Jr) Reviewed 12/23/2011 12:00 AM Depo-Medrol 80 mg N[facility]#[id number]-Efyoatce Reviewed 02/09/2012 12:00 AM THER/PROPH/DIAG INJ SC/IM Reviewed 02/09/2012 12:00 AM Decadron 1 mg [facility]#[id number] (Jr) Reviewed 02/09/2012 12:00 AM Depo-Medrol 80 mg N[facility]#17673075911-Wxlufctz Reviewed 03/15/2012 12:00 AM N BLOCK INJ OCCIPITAL Reviewed 03/15/2012 12:00 AM Kenalog Dx-[address]-20 ANNA Reviewed 04/11/2012 12:00 AM COMPLETE CBC W/AUTO DIFF WBC Reviewed 04/11/2012 12:00 AM COMPREHEN METABOLIC PANEL Reviewed 04/11/2012 12:00 AM LIPID PANEL Reviewed 04/11/2012 12:00 AM ASSAY THYROID STIM HORMONE Reviewed 06/20/2012 12:00 AM THER/PROPH/DIAG INJ SC/IM Reviewed 06/20/2012 12:00 AM Decadron, Per 1 Mg ND# [address]-78 Reviewed 06/20/2012 12:00 AM Depo-Medrol, Per 80 Mg ND#8968-8266-80 Reviewed 09/06/2012 12:00 AM N BLOCK INJ OCCIPITAL Reviewed 09/06/2012 12:00 AM Kenalog Gw-[address]-20 ANNA Reviewed 09/06/2012 12:00 AM X-RAY EXAM RIBS UNI 2 VIEWS Reviewed 09/26/2012 12:00 AM THER/PROPH/DIAG INJ SC/IM Reviewed 09/26/2012 12:00 AM Decadron, Per 1 Mg ND# [address]-67 Reviewed 09/26/2012 12:00 AM Depo-Medrol, Per 80 Mg ND#8460-8684-53 Reviewed 10/03/2012 12:00 AM URINALYSIS AUTO W/O SCOPE Reviewed 10/03/2012 12:00 AM THER/PROPH/DIAG INJ SC/IM Reviewed 10/03/2012 12:00 AM Toradol 60 Mg ND#9983-7947-52 Reviewed 10/03/2012 12:00 AM Phenergan, 25Mg ND#9576-3356-11 Reviewed 10/19/2012 12:00 AM N BLOCK INJ OCCIPITAL Reviewed 10/19/2012 12:00 AM Kenalog, Per 10 Mg ND#3553-3728-17 Reviewed 10/19/2012 12:00 AM Toradol 30 Mg ND#5438-8386-93 Reviewed 10/19/2012 12:00 AM THER/PROPH/DIAG INJ SC/IM Reviewed 10/31/2012 12:00 AM COMPLETE CBC W/AUTO DIFF WBC Reviewed 10/31/2012 12:00 AM COMPREHEN METABOLIC PANEL Reviewed 10/31/2012 12:00 AM LIPID PANEL Reviewed 11/03/2012 12:[address] THORAX W/O & W/DYE Reviewed 11/08/2012 12:00 AM N BLOCK INJ OCCIPITAL Reviewed 11/08/2012 12:00 AM Kenalog Al-[address]-20 ANNA Reviewed 11/27/2012 12:00 AM COMPLETE CBC [...] 01/25/2013 12:00 AM Decadron, Per 1 Mg [facility]# [address]-24 Reviewed 01/25/2013 12:00 AM Depo-Medrol, Per 80 Mg [facility]#8772-2594-07 Reviewed 01/26/2013 12:00 AM IMMUNOTHERAPY INJECTIONS Reviewed [...] 05/16/2013 12:00 AM Decadron, Per 1 Mg [facility]# [address]-50 Reviewed 05/16/2013 12:00 AM Depo-Medrol, Per 80 Mg [facility]#8016-5158-76 Reviewed 05/31/2013 12:00 AM IMMUNOTHERAPY INJECTIONS Reviewed 06/08/2013 12:00 AM IMMUNOTHERAPY INJECTIONS Reviewed 06/14/2013 12:00 AM IMMUNOTHERAPY INJECTIONS Reviewed 06/28/2013 12:00 AM IMMUNOTHERAPY INJECTIONS Reviewed 07/12/2013 12:00 AM X-RAY EXAM RIBS UNI 2 VIEWS Reviewed 07/18/2013 12:00 AM Toradol 60 Mg [facility]#5152-4290-02 Reviewed 07/18/2013 12:00 AM THER/PROPH/DIAG INJ SC/IM Reviewed 08/23/2013 12:00 AM COMPLETE CBC W/AUTO DIFF WBC Reviewed 08/23/2013 12:00 AM COMPREHEN METABOLIC PANEL Reviewed 08/23/2013 12:00 AM LIPID PANEL Reviewed 08/31/2013 12:00 AM X-RAY EXAM OF LOWER LEG Reviewed 09/04/2013 12:00 AM IMMUNOTHERAPY INJECTIONS Reviewed 09/14/2013 12:00 AM THER/PROPH/DIAG INJ SC/IM Reviewed 09/14/2013 12:00 AM Decadron, Per 1 Mg [facility]# [address]-55 Reviewed 09/14/2013 12:00 AM Depo-Medrol, Per 80 Mg [facility]#8527-0378-07 Reviewed 09/20/2013 12:00 AM IMMUNOTHERAPY INJECTIONS Reviewed [...] INJ OCCIPITAL Reviewed 12/10/2009 12:00 AM Kenalog Sc-[address]-20 ANNA Reviewed 12/16/2009 12:00 AM HIV-1ANTIBODY Reviewed 12/16/2009 12:00 AM COMPLETE CBC W/AUTO DIFF WBC Reviewed 12/16/2009 12:00 AM METABOLIC PANEL TOTAL CA Reviewed 12/16/2009 12:00 AM Type and screen Reviewed 12/16/2009 12:00 AM PROTHROMBIN TIME Reviewed 12/16/2009 12:00 AM THROMBOPLASTIN TIME PARTIAL Reviewed 03/18/2010 12:00 AM DRAIN/INJ JOINT/BURSA W/O US Reviewed 03/18/2010 12:00 AM Kenalog Do-[address]-20 ANNA Reviewed 11/21/2013 12:00 AM RADEX HAND MINIMUM 3 VIEWS Reviewed 06/03/2010 12:00 AM INJ TRIGGER POINT 1/2 MUSCL Reviewed 06/03/2010 12:00 AM Kenalog per 10Mg Im-Nd#[address]-52(Niall) Reviewed 12/05/2013 12:00 AM COMPLETE CBC W/AUTO [...] Reviewed 07/23/2010 12:00 AM Kenalog per 10Mg Im-Nd#[address]-57(Niall) Reviewed 2014 12:00 AM COMPLETE CBC W/AUTO [...] INJ OCCIPITAL Reviewed 10/01/2010 12:00 AM Kenalog Xr-[address]-20 ANNA Reviewed 07/25/2014 12:00 AM THER/PROPH/DIAG INJ [...] Quant,IgM <0.80 RMSF , IgG, EIA Negative [facility] Spotted Fever,IgM 0.51 E. [...] Of Immunizations Name Date Admin Mfg Name [facility] Code Trade Name Lot# Route Inj Vis Given Vis Pub CVX Influenza 03/30/2011 Not Entered NE Not Entered Not Entered Not Entered 03/31/2011 05/30/2016 141 Influenza 04/24/2014 sanofi pasteur PMC Fluzone [id number] Intramuscular Left Upper Arm 02/27/2014 01/15/2014 141 Influenza 02/13/2015 sanofi pasteur PMC Fluzone [id number] Intramuscular Left Deltoid 02/13/2015 01/03/2015 140 Tdap 06/06/2015 [employer] SKB BOOSTRIX [id number] Intramuscular Left Deltoid 06/06/2015 07/23/2014 115 Influenza 03/18/2016 sanofi pasteur PMC Fluzone [id number] Intramuscular Left Deltoid 03/17/2016 01/03/2015 141 History [...] upper respiratory infection Jun 18 2016 8:49AM Payers Insurance Name Company Name Plan Name Plan Number Policy Number Policy Group Number Start Date Medicare RHC Medicare RHC [id number] N/A [facility] - RHC - Community Plan [facility] RHC Comm [id number] N/A Medicare Part A Medicare - Lab/Xray [id number] N/A Medicare Part B Medicare Of [place] [id number] Monday, February 28, 2000 [place] [employer] [place] [employer] [id number] Tuesday, November 10, 2009 Medicare Part A Medicare Part A [id number] N/A [place] [employer] - RHC [place] [employer] - RHC [id number] May [facility] Plan [facility] Comm Plan of [id number] Wednesday, May 30, 2012 History of Encounters Visit Date Visit Type Provider 06/18/2016 Office visit Kaylynn Mendez SLIVER CHOPPER 06/07/2016 Office visit Sundeep Russell SLIVER CHOPPER 06/04/2016 Office visit Heena Dumont MD 05/13/2016 Office visit Heena Dumont MD 05/03/2016 Office visit Heena Dumont MD 04/26/2016 Office visit Kaylynn Mendez SLIVER CHOPPER 04/14/2016 Office visit Heena Dumont MD 04/13/2016 Office visit Kaylynn Mendez SLIVER CHOPPER 04/02/2016 Office visit Lena El SLIVER CHOPPER 04/02/2016 Office visit Heena Dumont MD 03/26/2016 Office visit Yesica Falcon SLIVER CHOPPER 03/17/2016 Office visit Heena Dumont MD 03/05/2016 Office visit Kaylynn Mendez SLIVER CHOPPER 02/16/2016 Office visit Heena Dumont MD 02/14/2016 Office visit Na Jones SLIVER CHOPPER 01/16/2016 Office visit Heena Dumont MD 12/16/2015 Office visit Heena Dumont MD 11/24/2015 Office visit Kaylynn Mendez SLIVER CHOPPER 11/18/2015 Office visit Heena Dumont MD 11/03/2015 Office visit Sundeep Russell SLIVER CHOPPER 10/20/2015 Office visit Kaylynn Walker SLIVER CHOPPER 09/23/2015 Office visit Kaylynn Walker SLIVER CHOPPER 09/16/[address] Pepe Figueroa MD 09/02/2015 Office visit Kaylynn Walker SLIVER CHOPPER 09/01/2015 Office visit Kaylynn Walker SLIVER CHOPPER 07/30/2015 Office visit Heena Dumont MD 07/15/2015 Office visit Kaylynn Walker SLIVER CHOPPER 07/04/2015 Office visit Heena Dumont MD 06/06/2015 Office visit Heena Dumont MD 06/06/2015 Office visit Kaylynn Walker SLIVER CHOPPER 06/02/2015 Office visit Kaylynn Walker SLIVER CHOPPER 05/26/2015 Office visit Kaylynn Walker SLIVER CHOPPER 05/20/2015 Office visit Kaylynn Walker SLIVER CHOPPER 05/08/2015 Office visit Heena Dumont MD 05/06/2015 Office visit Kaylynn Walker SLIVER CHOPPER 04/29/2015 Office visit Kaylynn Walker SLIVER CHOPPER 03/27/2015 Voided Brittni Yanez SLIVER CHOPPER 03/21/2015 Office visit Heena Dumont MD 03/12/2015 Office visit Kaylynn Mendez SLIVER CHOPPER 02/26/2015 Office visit Brittni Yanez SLIVER CHOPPER 02/13/2015 Office visit Heena Dumont MD 01/15/2015 Office visit Brittni Yanez SLIVER CHOPPER 01/13/2015 Office visit Heena Dumont MD 01/08/[address] Carol Fowler MD 01/01/2015 Office visit Brittni Yanez SLIVER CHOPPER 12/13/2014 Office visit Heena Dumont MD 11/27/2014 Office visit Kaylynn Mendez SLIVER CHOPPER 11/14/2014 Office visit Heena Dumont MD 10/18/2014 Office visit Heena Dumont MD 10/17/2014 [facility] John Hoskins MD 10/09/2014 Office visit Heena Dumont MD 09/25/2014 Office visit Heena Dumont MD 09/17/2014 Office visit Kaylynn Mendez SLIVER CHOPPER 09/04/2014 Office visit Heena Dumont MD 08/28/2014 Office visit Kaylynn Mendez SLIVER CHOPPER 08/23/2014 [facility] John Hoskins MD 08/01/2014 Office visit Kaylynn Mendez SLIVER CHOPPER 07/29/2014 Office visit Heena Dumont MD 07/25/2014 Nurse visit Heena Dumont MD 07/17/2014 Office visit Kaylynn Mendez SLIVER CHOPPER 07/11/2014 Office visit Heena Dumont MD 07/01/2014 Office visit Heena Dumont MD 06/25/2014 Office visit Kaylynn Mendez SLIVER CHOPPER 06/12/2014 Office visit Kaylynn Mendez SLIVER CHOPPER 06/06/2014 Office visit Kaylynn Mendez SLIVER CHOPPER 05/27/2014 Office visit Heena Dumont MD 04/20/2014 Office visit Yesica Falcon SLIVER CHOPPER 03/29/2014 Office visit Na Jones SLIVER CHOPPER 03/15/2014 Office visit Heena Dumont MD 2014 Office visit Heena Dumont MD 2014 [facility] Eliseo Hoskins MD 02/27/2014 Nurse visit Heena Dumont MD 02/13/2014 Office visit Lena El SLIVER CHOPPER 02/07/2014 Office visit Heena Dumont MD 02/03/2014 Office visit Na Jones SLIVER CHOPPER 01/30/2014 Office visit Kaylynn Mendez SLIVER CHOPPER 01/24/2014 Office visit Sundeep Russell SLIVER CHOPPER 01/16/2014 Office visit Kaylynn Mendez SLIVER CHOPPER 01/10/2014 Nurse visit Kaylynn Mendez SLIVER CHOPPER 01/08/2014 Office visit Kaylynn Walker SLIVER CHOPPER 12/05/2013 Office visit Kaylynn Mendez SLIVER CHOPPER 11/21/2013 Office visit Kaylynn Mendez SLIVER CHOPPER 10/23/2013 Office visit Brittni Yanez SLIVER CHOPPER 10/17/2013 Nurse visit Heena Dumont MD 10/12/2013 Office visit Kaylynn Mendez SLIVER CHOPPER 10/02/2013 Office visit Heena Dumont MD 09/20/2013 Nurse visit Kaylynn Mendez SLIVER CHOPPER 09/20/2013 Voided Heena Dumont MD 09/14/2013 Office visit Kaylynn Walker SLIVER CHOPPER 09/05/2013 Office visit Sundeep Russell SLIVER CHOPPER 09/04/2013 Nurse visit Kaylynn Walker SLIVER CHOPPER 08/31/2013 Office visit Kaylynn Mendez SLIVER CHOPPER 08/23/2013 Office visit Heena Dumont MD 08/10/2013 Office visit Kaylynn Mendez SLIVER CHOPPER 07/25/2013 Office visit Kaylynn Walker SLIVER CHOPPER 07/18/2013 Office visit Kaylynn Walker SLIVER CHOPPER 07/12/2013 Office visit Kaylynn Walker SLIVER CHOPPER 06/28/2013 Nurse visit Kaylynn Walker SLIVER CHOPPER 06/14/2013 Nurse visit Kaylynn Walker SLIVER CHOPPER 06/08/2013 Nurse visit Kaylynn Walker SLIVER CHOPPER 05/31/2013 Nurse visit Chadd Norris DO 05/18/2013 Office visit Terese Davidson MD 05/16/2013 Office visit Kaylynn Walker SLIVER CHOPPER 05/09/2013 Office visit Kaylynn Walker SLIVER CHOPPER 04/29/2013 [facility] John Hoskins MD 04/25/2013 Nurse visit Kaylynn Walker SLIVER CHOPPER 04/17/2013 Office visit Kaylynn Walker SLIVER CHOPPER 04/03/2013 Nurse visit Kaylynn Walker SLIVER CHOPPER 04/03/2013 Office visit Terese Davidson MD 03/28/2013 Office visit Sundeep Russell SLIVER CHOPPER 03/21/2013 Office visit Kaylynn Mendez SLIVER CHOPPER 03/20/2013 Office visit Terese Davidson MD 03/14/2013 Nurse visit Kaylynn Walker SLIVER CHOPPER 03/05/2013 Nurse visit Kaylynn Walker SLIVER CHOPPER 02/19/2013 Office visit Terese Davidson MD 02/16/2013 Nurse visit Kaylynn Walker SLIVER CHOPPER 02/09/2013 Office visit Sundeep Russell SLIVER CHOPPER 02/08/2013 Nurse visit Kaylynn Walker SLIVER CHOPPER 02/01/2013 Nurse visit Kaylynn Walker SLIVER CHOPPER 01/26/2013 Nurse visit Sabrina Mendez METAL POURER 01/25/2013 Office visit Kaylynn Mendez SLIVER CHOPPER 01/22/2013 Office visit Yoan Castaneda MD 01/18/2013 Nurse visit Kaylynn Walker SLIVER CHOPPER 01/11/2013 Nurse visit Kaylynn Walker SLIVER CHOPPER 01/05/2013 Nurse visit Kaylynn Walker SLIVER CHOPPER 12/29/2012 Office visit Kaylynn Walker SLIVER CHOPPER 11/27/2012 Office visit Kaylynn Mendez SLIVER CHOPPER 11/08/2012 Office visit Odell Tierney MD 11/08/2012 Voided Odell Tierney MD 11/07/2012 Office visit Kaylynn Mendez SLIVER CHOPPER 10/31/2012 [facility] John Hoskins MD 10/31/2012 Office visit Kaylynn Mendez SLIVER CHOPPER 10/19/2012 Office visit Genoveva Ayala SLIVER CHOPPER 10/10/2012 Office visit Kaylynn Walker SLIVER CHOPPER 10/03/2012 Office visit Kaylynn Walker SLIVER CHOPPER 09/26/2012 Office visit Kaylynn Walker SLIVER CHOPPER 09/06/2012 Office visit Kaylynn Mendez SLIVER CHOPPER 09/06/2012 Office visit Odell Tierney MD 08/31/2012 Voided Kaylynn Mendez SLIVER CHOPPER 07/28/2012 Office visit Kaylynn Mendez SLIVER CHOPPER 07/27/2012 Office visit David Joyner DO 07/20/2012 [facility] David Joyner DO 07/13/2012 [facility] David Joyner DO 07/11/2012 Office visit Kaylynn Mendez SLIVER CHOPPER 06/27/2012 [facility] Odell Tierney MD 06/21/2012 Office visit David Joyner DO 06/21/2012 Office visit Odell Tierney MD 06/20/2012 Office visit Brittni Yanez SLIVER CHOPPER 06/06/2012 Office visit Odell Tierney MD 05/03/2012 Office visit Kaylynn Mendez SLIVER CHOPPER 04/28/2012 Office visit Brittni Yanez SLIVER CHOPPER 04/11/2012 Office visit Kaylynn Andrea SLIVER CHOPPER 04/06/2012 [facility] John Hoskins MD 03/30/2012 Office visit Kaylynn Andrea SLIVER CHOPPER 03/15/2012 Office visit Kaylynn Andrea SLIVER CHOPPER 03/15/2012 Office visit Odell Tierney MD 02/09/2012 Office visit Kaylynn Mendez SLIVER CHOPPER 12/23/2011 Office visit Kaylynn Walker SLIVER CHOPPER 11/02/2011 Office visit Kaylynn Andrea SLIVER CHOPPER 10/14/2011 Office visit Kaylynn Mendez SLIVER CHOPPER 09/27/2011 Office visit Kaylynn Andrea SLIVER CHOPPER 08/19/2011 [facility] John Hoskins MD 08/18/2011 [facility] John Hoskins MD 08/18/2011 Office visit Kaylynn Mendez SLIVER CHOPPER 08/02/2011 Office visit Kaylynn Mendez SLIVER CHOPPER 07/08/2011 Office visit Kaylynn Andrea SLIVER CHOPPER 07/05/2011 Office visit Odell Tierney MD 06/15/2011 Office visit Kaylynn Mendez SLIVER CHOPPER 05/14/2011 Office visit Kaylynn Mendez SLIVER CHOPPER 05/11/2011 Office visit Odell Tierney MD 04/28/2011 Office visit Kaylynn Mendez SLIVER CHOPPER 03/02/2011 Office visit Chadd Norris DO 02/17/2011 [...]
--- OUTSIDE RECORDS SUMMARY | 2018-05-09 23:03 | XMS REPORT ---
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 mzgzpeph-eamrkjmqq-[place] 3.5-10,000-1 mg/mL-unit/mL-% otic drops,suspension 201607/23/2016 instill 4 [...] Reviewed 04/28/2011 12:00 AM Decadron 1 mg [facility]#[id number] (Jr) Reviewed 04/28/2011 12:00 AM Depo-Medrol 80 mg ND#[id number]-Wnibwhbj Reviewed 09/02/2015 12:00 AM Toradol 60 Mg [facility]#7083-3115-22 Reviewed 09/02/2015 12:00 AM Phenergan, Up to 50 Mg [facility] Medicaid Reviewed 09/16/2015 12:00 AM Toradol 60 Mg [facility]#7247-7829-78 Reviewed 09/16/2015 12:00 AM Phenergan Up to 50 mg [facility] Medicare Reviewed 05/11/2011 12:00 AM N BLOCK INJ OCCIPITAL Reviewed 05/11/2011 12:00 AM Kenalog En-[address]-20 ANNA Reviewed 11/13/2015 12:00 AM ASSAY OF [...] INJ SC/IM Reviewed 07/08/2011 12:00 AM Toradol,15mg [facility]#[id number], [place] Reviewed 07/08/2011 12:00 AM Phenergan 50 Mg Im [facility] [id number] [facility] Reviewed 01/21/2016 12:00 AM ECG MONIT/REPRT UP TO 48 HRS Returned 08/02/2011 12:00 AM THER/PROPH/DIAG INJ SC/IM Reviewed 08/02/2011 12:00 AM Decadron 1 mg [facility]#[id number] (Jr) Reviewed 08/02/2011 12:00 AM Depo-Medrol 80 mg [facility]#[id number]-Sxcnolid Reviewed 03/05/2016 12:00 AM COMPLETE CBC W/AUTO DIFF WBC Returned 03/05/2016 12:00 AM STREP A ASSAY W/OPTIC Returned 03/05/2016 12:00 AM C-REACTIVE PROTEIN Returned 03/18/2016 12:00 AM [facility] MEDICARE - flu vaccine administration Reviewed [...] Reviewed 09/27/2011 12:00 AM Depo-Medrol 80 mg NDC#[id number]-Fgkpvqqe Reviewed 07/06/2016 12:00 AM CHEST X-RAY 4/> [...] Reviewed 12/23/2011 12:00 AM Decadron 1 mg [facility]#[id number] (Jr) Reviewed 12/23/2011 12:00 AM Depo-Medrol 80 mg [facility]#[id number]-Ecwwznah Reviewed 02/09/2012 12:00 AM THER/PROPH/DIAG INJ SC/IM Reviewed 02/09/2012 12:00 AM Decadron 1 mg [facility]#07812961754 (Jr) Reviewed 02/09/2012 12:00 AM Depo-Medrol 80 mg N[facility]#[id number]-Wuxptgen Reviewed 03/15/2012 12:00 AM N BLOCK INJ OCCIPITAL Reviewed 03/15/2012 12:00 AM Kenalog Ub-[address]-20 ANNA Reviewed 04/11/2012 12:00 AM COMPLETE CBC W/AUTO DIFF WBC Reviewed 04/11/2012 12:00 AM COMPREHEN METABOLIC PANEL Reviewed 04/11/2012 12:00 AM LIPID PANEL Reviewed 04/11/2012 12:00 AM ASSAY THYROID STIM HORMONE Reviewed 06/20/2012 12:00 AM THER/PROPH/DIAG INJ SC/IM Reviewed 06/20/2012 12:00 AM Decadron, Per 1 Mg ND# [address]-19 Reviewed 06/20/2012 12:00 AM Depo-Medrol, Per 80 Mg ND#2651-0609-09 Reviewed 09/06/2012 12:00 AM N BLOCK INJ OCCIPITAL Reviewed 09/06/2012 12:00 AM Kenalog Rn-[address]-20 ANNA Reviewed 09/06/2012 12:00 AM X-RAY EXAM RIBS UNI 2 VIEWS Reviewed 09/26/2012 12:00 AM THER/PROPH/DIAG INJ SC/IM Reviewed 09/26/2012 12:00 AM Decadron, Per 1 Mg [facility]# 02230-2009-81 Reviewed 09/26/2012 12:00 AM Depo-Medrol, Per 80 Mg [facility]#8413-1315-38 Reviewed 10/03/2012 12:00 AM URINALYSIS AUTO W/O SCOPE Reviewed 10/03/2012 12:00 AM THER/PROPH/DIAG INJ SC/IM Reviewed 10/03/2012 12:00 AM Toradol 60 Mg [facility]#0957-3700-80 Reviewed 10/03/2012 12:00 AM Phenergan, 25Mg [facility]#2022-2556-58 Reviewed 10/19/2012 12:00 AM N BLOCK INJ OCCIPITAL Reviewed 10/19/2012 12:00 AM Kenalog, Per 10 Mg ND#9526-9638-02 Reviewed 10/19/2012 12:00 AM Toradol 30 Mg [facility]#1798-2780-66 Reviewed 10/19/2012 12:00 AM THER/PROPH/DIAG INJ SC/IM Reviewed 10/31/2012 12:00 AM COMPLETE CBC W/AUTO DIFF WBC Reviewed 10/31/2012 12:00 AM COMPREHEN METABOLIC PANEL Reviewed 10/31/2012 12:00 AM LIPID PANEL Reviewed 11/03/2012 12:[address] THORAX W/O & W/DYE Reviewed 11/08/2012 12:00 AM N BLOCK INJ OCCIPITAL Reviewed 11/08/2012 12:00 AM Kenalog Fr-[address]-20 ANNA Reviewed 11/27/2012 12:00 AM COMPLETE CBC [...] 12:00 AM Decadron, Per 1 Mg ND# [address]-14 Reviewed 01/25/2013 12:00 AM Depo-Medrol, Per 80 Mg N[facility]#6649-1864-04 Reviewed 01/26/2013 12:00 AM IMMUNOTHERAPY INJECTIONS Reviewed [...] 12:00 AM Decadron, Per 1 Mg N[facility]# [address]-90 Reviewed 05/16/2013 12:00 AM Depo-Medrol, Per 80 Mg N[facility]#8557-2485-96 Reviewed 05/31/2013 12:00 AM IMMUNOTHERAPY INJECTIONS Reviewed 06/08/2013 12:00 AM IMMUNOTHERAPY INJECTIONS Reviewed 06/14/2013 12:00 AM IMMUNOTHERAPY INJECTIONS Reviewed 06/28/2013 12:00 AM IMMUNOTHERAPY INJECTIONS Reviewed 07/12/2013 12:00 AM X-RAY EXAM RIBS UNI 2 VIEWS Reviewed 07/18/2013 12:00 AM Toradol 60 Mg [facility]#4236-9590-62 Reviewed 07/18/2013 12:00 AM THER/PROPH/DIAG INJ SC/IM Reviewed 08/23/2013 12:00 AM COMPLETE CBC W/AUTO DIFF WBC Reviewed 08/23/2013 12:00 AM COMPREHEN METABOLIC PANEL Reviewed 08/23/2013 12:00 AM LIPID PANEL Reviewed 08/31/2013 12:00 AM X-RAY EXAM OF LOWER LEG Reviewed 09/04/2013 12:00 AM IMMUNOTHERAPY INJECTIONS Reviewed 09/14/2013 12:00 AM THER/PROPH/DIAG INJ SC/IM Reviewed 09/14/2013 12:00 AM Decadron, Per 1 Mg [facility]# [address]-24 Reviewed 09/14/2013 12:00 AM Depo-Medrol, Per 80 Mg [facility]#4915-2651-40 Reviewed 09/20/2013 12:00 AM IMMUNOTHERAPY INJECTIONS Reviewed [...] INJ OCCIPITAL Reviewed 12/10/2009 12:00 AM Kenalog Ae-[address]-20 ANNA Reviewed 12/16/2009 12:00 AM HIV-1ANTIBODY Reviewed 12/16/2009 12:00 AM COMPLETE CBC W/AUTO DIFF WBC Reviewed 12/16/2009 12:00 AM METABOLIC PANEL TOTAL CA Reviewed 12/16/2009 12:00 AM Type and screen Reviewed 12/16/2009 12:00 AM PROTHROMBIN TIME Reviewed 12/16/2009 12:00 AM THROMBOPLASTIN TIME PARTIAL Reviewed 03/18/2010 12:00 AM DRAIN/INJ JOINT/BURSA W/O US Reviewed 03/18/2010 12:00 AM Kenalog Hd-[address]-20 ANNA Reviewed 11/21/2013 12:00 AM RADEX HAND MINIMUM 3 VIEWS Reviewed 06/03/2010 12:00 AM INJ TRIGGER POINT 1/2 MUSCL Reviewed 06/03/2010 12:00 AM Kenalog per 10Mg Im-Ndc#[address]-08(Niall) Reviewed 12/05/2013 12:00 AM COMPLETE CBC W/AUTO [...] Reviewed 07/23/2010 12:00 AM Kenalog per 10Mg Im-Ndc#[address]-87(Niall) Reviewed 2014 12:00 AM COMPLETE CBC W/AUTO [...] INJ OCCIPITAL Reviewed 10/01/2010 12:00 AM Kengretta Ak-[address]-20 ANNA Reviewed 07/25/2014 12:00 AM THER/PROPH/DIAG INJ [...] 141 Influenza 04/24/2014 sanofi pasteur PMC Fluzone [id number] Intramuscular Left Upper Arm 02/27/2014 01/15/2014 141 Influenza 02/13/2015 sanofi pasteur PMC Fluzone [id number] Intramuscular Left Deltoid 02/13/2015 01/03/2015 140 Tdap 06/06/2015 [employer] SKB BOOSTRIX [id number] Intramuscular Left Deltoid 06/06/2015 07/23/2014 115 Influenza 03/18/2016 sanofi pasteur PMC Fluzone [id number] Intramuscular Left Deltoid 03/17/2016 01/03/2015 141 History [...] Number Policy Group Number Start Date Medicare [facility] Medicare [facility] [id number] N/A [facility] Comm [id number] N/A Medicare Part A Medicare - Lab/Xray [id number] N/A Medicare Part B Medicare Of [place] [id number] Monday, February 28, 2000 [place] [facility] [place] [facility] [id number] Tuesday, November 10, 2009 Medicare Part A Medicare Part A [id number] N/A [place] [employer] [place] [employer] [id number] [facility] Plan of [id number] Wednesday, May 30, 2012 History of Encounters Visit Date Visit Type Provider 09/09/2016 Office visit Kaylynn Mendez INTEGRATED CIRCUIT FABRICATOR 08/27/2016 Office visit Riccardo Cardoza MD 08/26/2016 Office visit Heena Dumont MD 07/09/2016 Office visit Riccardo Cardoza MD 07/06/2016 Office visit Heena Dumont MD 06/18/2016 Office visit Kaylynn Mendez INTEGRATED CIRCUIT FABRICATOR 06/07/2016 Office visit Sundeep Russell INTEGRATED CIRCUIT FABRICATOR 06/04/2016 Office visit Heena Dumont MD 05/13/2016 Office visit Heena Dumont MD 05/03/2016 Office visit Heena Dumont MD 04/26/2016 Office visit Kaylynn Mendez INTEGRATED CIRCUIT FABRICATOR 04/14/2016 Office visit Heena Dumont MD 04/13/2016 Office visit Kaylynn Mendez INTEGRATED CIRCUIT FABRICATOR 04/02/2016 Office visit Lena El INTEGRATED CIRCUIT FABRICATOR 04/02/2016 Office visit Heena Dumont MD 03/26/2016 Office visit Yesica Falcon INTEGRATED CIRCUIT FABRICATOR 03/17/2016 Office visit Heena Dumont MD 03/05/2016 Office visit Kaylynn Mendez INTEGRATED CIRCUIT FABRICATOR 02/16/2016 Office visit Heena Dumont MD 02/14/2016 Office visit Na Jones INTEGRATED CIRCUIT FABRICATOR 01/16/2016 Office visit Heena Dumont MD 12/16/2015 Office visit Heena Dumont MD 11/24/2015 Office visit Kaylynn Mendez INTEGRATED CIRCUIT FABRICATOR 11/18/2015 Office visit Heena Dumont MD 11/03/2015 Office visit Sundeep Russell INTEGRATED CIRCUIT FABRICATOR 10/20/2015 Office visit Kaylynn Mendez INTEGRATED CIRCUIT FABRICATOR 09/23/2015 Office visit Kaylynn Mendez INTEGRATED CIRCUIT FABRICATOR 09/16/[address] Pepe Figueroa MD 09/02/2015 Office visit Kaylynn Mendez INTEGRATED CIRCUIT FABRICATOR 09/01/2015 Office visit Kaylynn Mendez INTEGRATED CIRCUIT FABRICATOR 07/30/2015 Office visit Heena Dumont MD 07/15/2015 Office visit Kaylynn Mendez INTEGRATED CIRCUIT FABRICATOR 07/04/2015 Office visit Heena Dumont MD 06/06/2015 Office visit Heena Dumont MD 06/06/2015 Office visit Kaylynn Mendez INTEGRATED CIRCUIT FABRICATOR 06/02/2015 Office visit Kaylynn Andrea INTEGRATED CIRCUIT FABRICATOR 05/26/2015 Office visit Kaylynn Mendez INTEGRATED CIRCUIT FABRICATOR 05/20/2015 Office visit Kaylynn Mendez INTEGRATED CIRCUIT FABRICATOR 05/08/2015 Office visit Heena Dumont MD 05/06/2015 Office visit Kaylynn Mendez INTEGRATED CIRCUIT FABRICATOR 04/29/2015 Office visit Kaylynn Mendez INTEGRATED CIRCUIT FABRICATOR 03/27/2015 Voided Brittni Yanez INTEGRATED CIRCUIT FABRICATOR 03/21/2015 Office visit Heena Dumont MD 03/12/2015 Office visit Kaylynn Mendez INTEGRATED CIRCUIT FABRICATOR 02/26/2015 Office visit Brittni Yanez INTEGRATED CIRCUIT FABRICATOR 02/13/2015 Office visit Heena Dumont MD 01/15/2015 Office visit Brittni Yanez INTEGRATED CIRCUIT FABRICATOR 01/13/2015 Office visit Heena Dumont MD 01/08/[address] Carol Fowler MD 01/01/2015 Office visit Brittni Yanez INTEGRATED CIRCUIT FABRICATOR 12/13/2014 Office visit Heena Dumont MD 11/27/2014 Office visit Kaylynn Mendez INTEGRATED CIRCUIT FABRICATOR 11/14/2014 Office visit Heena Dumont MD 10/18/2014 Office visit Heena Dumont MD 10/17/2014 Hospital Eliseo Hoskins MD 10/09/2014 Office visit Heena Dumont MD 09/25/2014 Office visit Heena Dumont MD 09/17/2014 Office visit Kaylynn Mendez INTEGRATED CIRCUIT FABRICATOR 09/04/2014 Office visit Heena Dumont MD 08/28/2014 Office visit Kaylynn Mendez INTEGRATED CIRCUIT FABRICATOR 08/23/2014 [facility] John Hoskins MD 08/01/2014 Office visit Kaylynn Mendez INTEGRATED CIRCUIT FABRICATOR 07/29/2014 Office visit Heena Dumont MD 07/25/2014 Nurse visit Heena Dumont MD 07/17/2014 Office visit Kaylynn Mendez INTEGRATED CIRCUIT FABRICATOR 07/11/2014 Office visit Heena Dumont MD 07/01/2014 Office visit Heena Dumont MD 06/25/2014 Office visit Kaylynn Mendez INTEGRATED CIRCUIT FABRICATOR 06/12/2014 Office visit Kaylynn Mendez INTEGRATED CIRCUIT FABRICATOR 06/06/2014 Office visit Kaylynn Mendez INTEGRATED CIRCUIT FABRICATOR 05/27/2014 Office visit Heena Dumont MD 04/20/2014 Office visit Yesica Falcon INTEGRATED CIRCUIT FABRICATOR 03/29/2014 Office visit Na Jones INTEGRATED CIRCUIT FABRICATOR 03/15/2014 Office visit Heena Dumont MD 2014 Office visit Heena Dumont MD 2014 [facility] John Hoskins MD 02/27/2014 Nurse visit Heena Dumont MD 02/13/2014 Office visit Lena El INTEGRATED CIRCUIT FABRICATOR 02/07/2014 Office visit Heena Dumont MD 02/03/2014 Office visit Na Jones INTEGRATED CIRCUIT FABRICATOR 01/30/2014 Office visit Kaylynn Mendez INTEGRATED CIRCUIT FABRICATOR 01/24/2014 Office visit Sundeep Russell INTEGRATED CIRCUIT FABRICATOR 01/16/2014 Office visit Kaylynn Walker INTEGRATED CIRCUIT FABRICATOR 01/10/2014 Nurse visit Kaylynn Walker INTEGRATED CIRCUIT FABRICATOR 01/08/2014 Office visit Kaylynn Walker INTEGRATED CIRCUIT FABRICATOR 12/05/2013 Office visit Kaylynn Walker INTEGRATED CIRCUIT FABRICATOR 11/21/2013 Office visit Kaylynn Walker INTEGRATED CIRCUIT FABRICATOR 10/23/2013 Office visit Brittni Yanez INTEGRATED CIRCUIT FABRICATOR 10/17/2013 Nurse visit Heena Dumont MD 10/12/2013 Office visit Kaylynn Walker INTEGRATED CIRCUIT FABRICATOR 10/02/2013 Office visit Heena Dumont MD 09/20/2013 Nurse visit Kaylynn Mendez INTEGRATED CIRCUIT FABRICATOR 09/20/2013 Voided Heena Dumont MD 09/14/2013 Office visit Kaylynn Walker INTEGRATED CIRCUIT FABRICATOR 09/05/2013 Office visit Sundeep Russell INTEGRATED CIRCUIT FABRICATOR 09/04/2013 Nurse visit Kaylynn Walker INTEGRATED CIRCUIT FABRICATOR 08/31/2013 Office visit Kaylynn Walker INTEGRATED CIRCUIT FABRICATOR 08/23/2013 Office visit Heena Dumont MD 08/10/2013 Office visit Kaylynn Walker INTEGRATED CIRCUIT FABRICATOR 07/25/2013 Office visit Kaylynn Walker INTEGRATED CIRCUIT FABRICATOR 07/18/2013 Office visit Kaylynn Walker INTEGRATED CIRCUIT FABRICATOR 07/12/2013 Office visit Kaylynn Walker INTEGRATED CIRCUIT FABRICATOR 06/28/2013 Nurse visit Kaylynn Walker INTEGRATED CIRCUIT FABRICATOR 06/14/2013 Nurse visit Kaylynn Walker INTEGRATED CIRCUIT FABRICATOR 06/08/2013 Nurse visit Kaylynn Walker INTEGRATED CIRCUIT FABRICATOR 05/31/2013 Nurse visit Chadd Norris DO 05/18/2013 Office visit Terese Davidson MD 05/16/2013 Office visit Kaylynn Mendez INTEGRATED CIRCUIT FABRICATOR 05/09/2013 Office visit Kaylynn Mendez INTEGRATED CIRCUIT FABRICATOR 04/29/2013 [facility] John Hoskins MD 04/25/2013 Nurse visit Kaylynn Walker INTEGRATED CIRCUIT FABRICATOR 04/17/2013 Office visit Kaylynn Walker INTEGRATED CIRCUIT FABRICATOR 04/03/2013 Nurse visit Kaylynn Walker INTEGRATED CIRCUIT FABRICATOR 04/03/2013 Office visit Terese Davidson MD 03/28/2013 Office visit Sundeep Russell INTEGRATED CIRCUIT FABRICATOR 03/21/2013 Office visit Kaylynn Mendez INTEGRATED CIRCUIT FABRICATOR 03/20/2013 Office visit Terese Davidson MD 03/14/2013 Nurse visit Kaylynn Mendez INTEGRATED CIRCUIT FABRICATOR 03/05/2013 Nurse visit Kaylynn Walker INTEGRATED CIRCUIT FABRICATOR 02/19/2013 Office visit Terese Davidson MD 02/16/2013 Nurse visit Kaylynn Walker INTEGRATED CIRCUIT FABRICATOR 02/09/2013 Office visit Sundeep Russell INTEGRATED CIRCUIT FABRICATOR 02/08/2013 Nurse visit Kaylynn Walker INTEGRATED CIRCUIT FABRICATOR 02/01/2013 Nurse visit Kaylynn Walker INTEGRATED CIRCUIT FABRICATOR 01/26/2013 Nurse visit Sabrina Andrea DOMAIN ARCHITECT 01/25/2013 Office visit Kaylynn Andrea INTEGRATED CIRCUIT FABRICATOR 01/22/2013 Office visit Yoan Castaneda MD 01/18/2013 Nurse visit Kaylynn Walker INTEGRATED CIRCUIT FABRICATOR 01/11/2013 Nurse visit Kaylynn Walker INTEGRATED CIRCUIT FABRICATOR 01/05/2013 Nurse visit Kaylynn Walker INTEGRATED CIRCUIT FABRICATOR 12/29/2012 Office visit Kaylynn Walker INTEGRATED CIRCUIT FABRICATOR 11/27/2012 Office visit Kaylynn Mendez INTEGRATED CIRCUIT FABRICATOR 11/08/2012 Office visit Odell Tierney MD 11/08/2012 Voided Odell Tierney MD 11/07/2012 Office visit Kaylynn Mendez INTEGRATED CIRCUIT FABRICATOR 10/31/2012 [facility] John Hoskins MD 10/31/2012 Office visit Kaylynn Mendez INTEGRATED CIRCUIT FABRICATOR 10/19/2012 Office visit Genoveva Ayala INTEGRATED CIRCUIT FABRICATOR 10/10/2012 Office visit Kaylynn Mendez INTEGRATED CIRCUIT FABRICATOR 10/03/2012 Office visit Kaylynn Walker INTEGRATED CIRCUIT FABRICATOR 09/26/2012 Office visit Kaylynn Mendez INTEGRATED CIRCUIT FABRICATOR 09/06/2012 Office visit Kaylynn Mendez INTEGRATED CIRCUIT FABRICATOR 09/06/2012 Office visit Odell Tierney MD 08/31/2012 Voided Kaylynn Mendez INTEGRATED CIRCUIT FABRICATOR 07/28/2012 Office visit Kaylynn Mendez INTEGRATED CIRCUIT FABRICATOR 07/27/2012 Office visit David Joyner DO 07/20/2012 [facility] David Joyner DO 07/13/2012 [facility] David Joyner DO 07/11/2012 Office visit Kaylynn Mendez INTEGRATED CIRCUIT FABRICATOR 06/27/2012 [facility] Odell Tierney MD 06/21/2012 Office visit David Joyner DO 06/21/2012 Office visit Odell Tierney MD 06/20/2012 Office visit Brittni Yanez INTEGRATED CIRCUIT FABRICATOR 06/06/2012 Office visit Odell Tierney MD 05/03/2012 Office visit Kaylynn Mendez INTEGRATED CIRCUIT FABRICATOR 04/28/2012 Office visit Brittni Yanez INTEGRATED CIRCUIT FABRICATOR 04/11/2012 Office visit Kaylynn Mendez INTEGRATED CIRCUIT FABRICATOR 04/06/2012 [facility] John Hoskins MD 03/30/2012 Office visit Kaylynn Mendez INTEGRATED CIRCUIT FABRICATOR 03/15/2012 Office visit Kaylynn Mendez INTEGRATED CIRCUIT FABRICATOR 03/15/2012 Office visit Odell Tierney MD 02/09/2012 Office visit Kaylynn Mendez INTEGRATED CIRCUIT FABRICATOR 12/23/2011 Office visit Kaylynn Mendez INTEGRATED CIRCUIT FABRICATOR 11/02/2011 Office visit Kaylynn Mendez INTEGRATED CIRCUIT FABRICATOR 10/14/2011 Office visit Kaylynn Mendez INTEGRATED CIRCUIT FABRICATOR 09/27/2011 Office visit Kaylynn Mendez INTEGRATED CIRCUIT FABRICATOR 08/19/2011 Hospital John Hoskins MD 08/18/2011 [facility] John Hoskins MD 08/18/2011 Office visit Kaylynn Mendez INTEGRATED CIRCUIT FABRICATOR 08/02/2011 Office visit Kaylynn Mendez INTEGRATED CIRCUIT FABRICATOR 07/08/2011 Office visit Kaylynn Mendez INTEGRATED CIRCUIT FABRICATOR 07/05/2011 Office visit Odell Tierney MD 06/15/2011 Office visit Kaylynn Mendez INTEGRATED CIRCUIT FABRICATOR 05/14/2011 Office visit Kaylynn Andrea INTEGRATED CIRCUIT FABRICATOR 05/11/2011 Office visit Odell Tierney MD 04/28/2011 Office visit Kaylynn Mendez INTEGRATED CIRCUIT FABRICATOR 03/02/2011 Office visit Chadd Norris DO 02/17/2011 [...]
--- OUTSIDE RECORDS SUMMARY | 2018-05-09 23:10 | XMS REPORT ---
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 emdxsanj-zzvkdbzkn-UH 3.5-10,000-1 mg/mL-unit/mL-% otic drops,suspension 201607/23/2016 instill 4 [...] HC BMI BSA BMI Percentile O2 Sat(%) 06/02/2017 4:02:00 PM 132 mmHg 82 mmHg [...] Reviewed 04/28/2011 12:00 AM Decadron 1 mg NDC#[id number] (Jr) Reviewed 04/28/2011 12:00 AM Depo-Medrol 80 mg NDC#[id number]-Exkuagkj Reviewed 09/02/2015 12:00 AM Toradol 60 Mg NDC#3926-3505-46 Reviewed 09/02/2015 12:00 AM Phenergan, Up to 50 Mg RHC Medicaid Reviewed 09/16/2015 12:00 AM Toradol 60 Mg NDC#4932-6125-49 Reviewed 09/16/2015 12:00 AM Phenergan Up to 50 mg RHC Medicare Reviewed 05/11/2011 12:00 AM N BLOCK INJ OCCIPITAL Reviewed 05/11/2011 12:00 AM Kenalog Je-[id number] ANNA Reviewed 11/13/2015 12:00 AM ASSAY OF [...] 12:00 AM Toradol,15mg [facility]#[id number], Brunildaer Reviewed 07/08/2011 12:00 AM Phenergan 50 Mg Im [facility] 9874-7950-16 FP Pur[place] Reviewed 01/21/2016 12:00 AM ECG MONIT/REPRT UP TO 48 HRS Returned 08/02/2011 12:00 AM THER/PROPH/DIAG INJ SC/IM Reviewed 08/02/2011 12:00 AM Decadron [address] [facility]#[id number] (Jr) Reviewed 08/02/2011 12:00 AM Depo-Medrol [address] [facility]#[id number]-Jhpkbyos Reviewed 03/05/2016 12:00 AM COMPLETE CBC W/AUTO DIFF WBC Reviewed 03/05/2016 12:00 AM STREP A ASSAY W/OPTIC Reviewed 03/05/2016 12:00 AM C-REACTIVE PROTEIN Reviewed 03/18/2016 12:00 AM [facility] MEDICARE - flu vaccine administration [...] Reviewed 09/27/2011 12:00 AM Depo-Medrol 80 mg ND#[id number]-Lfltdhoo Reviewed 09/27/2011 12:00 AM Depo-Medrol 40 mg NDC#[id number] Reviewed 07/06/2016 12:00 AM CHEST X-RAY 4/> [...] Reviewed 12/23/2011 12:00 AM Decadron [address] [facility]#[id number] (Jr) Reviewed 12/23/2011 12:00 AM Depo-Medrol [address] [facility]#[id number]-Patirsae Reviewed 11/02/2016 11:45 AM URINALYSIS AUTO W/O [...] Reviewed 02/09/2012 12:00 AM Decadron 1 mg ND#[id number] (Jr) Reviewed 02/09/2012 12:00 AM Depo-Medrol 80 mg ND#[id number]-Rpxhoxjh Reviewed 02/21/2017 12:00 AM CULTURE OTHR SPECIMN AEROBIC Returned 02/21/2017 12:00 AM INFLUENZA ASSAY W/OPTIC Returned 02/23/2017 12:00 AM COMPLETE CBC W/AUTO DIFF WBC Reviewed 02/23/2017 12:00 AM X-RAY EXAM OF KNEE 3 Returned 03/15/2012 12:00 AM N BLOCK INJ OCCIPITAL Reviewed 03/15/2012 12:00 AM Kenalog Vg-[id number] ANNA Reviewed 04/11/2012 12:00 AM COMPLETE CBC [...] 12:00 AM Decadron, Per 1 Mg ND# [address]-23 Reviewed 06/20/2012 12:00 AM Depo-Medrol, Per 80 Mg ND#3618-6073-98 Reviewed 09/06/2012 12:00 AM N BLOCK INJ OCCIPITAL Reviewed 09/06/2012 12:00 AM Kenalog Fr-[address]-20 ANNA Reviewed 09/06/2012 12:00 AM X-RAY EXAM RIBS UNI 2 VIEWS Reviewed 09/26/2012 12:00 AM THER/PROPH/DIAG INJ SC/IM Reviewed 09/26/2012 12:00 AM Decadron, Per [address] [facility]# [address]-20 Reviewed 09/26/2012 12:00 AM Depo-Medrol, Per [address] [facility]#2720-1019-51 Reviewed 10/03/2012 12:00 AM URINALYSIS AUTO W/O SCOPE Reviewed 10/03/2012 12:00 AM THER/PROPH/DIAG INJ SC/IM Reviewed 10/03/2012 12:00 AM Toradol [address] [facility]#4976-7912-27 Reviewed 10/03/2012 12:00 AM Phenergan, 25Mg [facility]#0915-6792-36 Reviewed 10/19/2012 12:00 AM N BLOCK INJ OCCIPITAL Reviewed 10/19/2012 12:00 AM Kenalog, Per [address] [facility]#8301-4719-47 Reviewed 10/19/2012 12:00 AM Toradol [address] [facility]#8394-6585-41 Reviewed 10/19/2012 12:00 AM THER/PROPH/DIAG INJ SC/IM Reviewed 10/31/2012 12:00 AM COMPLETE CBC W/AUTO DIFF WBC Reviewed 10/31/2012 12:00 AM COMPREHEN METABOLIC PANEL Reviewed 10/31/2012 12:00 AM LIPID PANEL Reviewed 10/31/2012 12:00 AM ELECTROCARDIOGRAM COMPLETE Reviewed 11/03/2012 12:[address] THORAX W/O & W/DYE Reviewed 11/08/2012 12:00 AM N BLOCK INJ OCCIPITAL Reviewed 11/08/2012 12:00 AM Kenalog Kw-[address]-20 ANNA Reviewed 11/27/2012 12:00 AM COMPLETE CBC [...] [address] [facility]# [address]-47 Reviewed 01/25/2013 12:00 AM Depo-Medrol, Per [address] [facility]#1307-5829-27 Reviewed 01/26/2013 12:00 AM IMMUNOTHERAPY ONE INJECTION [...] [address] [facility]# [address]-36 Reviewed 05/16/2013 12:00 AM Depo-Medrol, Per [address] [facility]#7485-2691-37 Reviewed 05/31/2013 12:00 AM IMMUNOTHERAPY INJECTIONS Reviewed 06/08/2013 12:00 AM IMMUNOTHERAPY INJECTIONS Reviewed 06/14/2013 12:00 AM IMMUNOTHERAPY INJECTIONS Reviewed 06/28/2013 12:00 AM IMMUNOTHERAPY INJECTIONS Reviewed 07/12/2013 12:00 AM X-RAY EXAM RIBS UNI 2 VIEWS Reviewed 07/18/2013 12:00 AM Toradol [address] [facility]#6637-2573-58 Reviewed 07/18/2013 12:00 AM THER/PROPH/DIAG INJ SC/IM [...] [address] [facility]# [address]-83 Reviewed 09/14/2013 12:00 AM Depo-Medrol, Per [address] [facility]#4356-6954-73 Reviewed 09/20/2013 12:00 AM IMMUNOTHERAPY INJECTIONS Reviewed [...] INJ OCCIPITAL Reviewed 12/10/2009 12:00 AM Quentin Ja-[address]-20 ANNA Reviewed 12/16/2009 12:00 AM HIV-1ANTIBODY Reviewed 12/16/2009 12:00 AM COMPLETE CBC W/AUTO DIFF WBC Reviewed 12/16/2009 12:00 AM METABOLIC PANEL TOTAL CA Reviewed 12/16/2009 12:00 AM Type and screen Reviewed 12/16/2009 12:00 AM PROTHROMBIN TIME Reviewed 12/16/2009 12:00 AM THROMBOPLASTIN TIME PARTIAL Reviewed 03/18/2010 12:00 AM DRAIN/INJ JOINT/BURSA W/O US Reviewed 03/18/2010 12:00 AM Quentin Mu-[address]-20 ANNA Reviewed 11/21/2013 12:00 AM RADEX HAND MINIMUM 3 VIEWS Reviewed 06/03/2010 12:00 AM INJ TRIGGER POINT 1/2 MUSCL Reviewed 06/03/2010 12:00 AM Kenalog per 10Mg Im-[facility]#[address]-21(Niall) Reviewed 12/05/2013 12:00 AM COMPLETE CBC W/AUTO [...] 07/23/2010 12:00 AM Kenalog per 10Mg Im-[facility]#[address]-16(Niall) Reviewed 2014 12:00 AM COMPLETE CBC W/AUTO [...] INJ OCCIPITAL Reviewed 10/01/2010 12:00 AM Kenalog Hg-[address]-20 ANNA Reviewed 07/25/2014 12:00 AM THER/PROPH/DIAG INJ [...] Quant,IgM <0.80 RMSF , IgG, EIA Negative [facility] Spotted Fever,IgM 0.51 E. chaffeensis [...] 141 Influenza 04/24/2014 sanofi pasteur PMC Fluzone [id number] Intramuscular Left Upper Arm 02/27/2014 01/15/2014 141 Influenza 02/13/2015 sanofi pasteur PMC Fluzone [id number] Intramuscular Left Deltoid 02/13/2015 01/03/2015 140 Tdap 06/06/2015 GlaxoSmithKline SKB BOOSTRIX [id number] Intramuscular Left Deltoid 06/06/2015 07/23/2014 115 Influenza 03/18/2016 sanofi pasteur PMC Fluzone [id number] Intramuscular Left Deltoid 03/17/2016 01/03/2015 141 History [...] for breast cancer Jun 17 2017 9:16AM Payers Insurance Name Company Name Plan Name Plan Number Policy Number Policy Group Number Start Date Medicare RHC Medicare RHC [id number] N/A [facility] - Community Plan of [facility] RHC Comm [id number] N/A Medicare Part A Medicare - Lab/Xray [id number] N/A Medicare Part B Medicare Of [place] [id number] Monday, February 28, 2000 [place] [employer] [place] [id number] Tuesday, November 10, 2009 Medicare Part A Medicare Part A [id number] N/A [place] [employer] - R[place] [employer] - RHC [id number] May [facility] Comm Plan of [id number] Wednesday, May 30, 2012 History of Encounters Visit Date Visit Type Provider 06/02/2017 Office visit Heena Dumont MD 04/20/2017 Office visit 04/20/2017 Office visit 04/20/2017 Office visit 04/20/2017 Office visit Heena Dumont MD 03/22/2017 Office visit Heena Dumont MD 03/05/2017 Office visit Lena Chaves MAINTENANCE MECHANIC ELEVATORS 02/23/2017 Office visit Symone Marie [employer]TENA[employer] MECH[employer]IC E[employer] 02/21/2017 Office visit Heena Dumont MD 02/15/2017 Office visit Heena Dumont MD 02/02/2017 Office visit Heena Dumont MD 01/07/2017 Office visit Riccardo Cardoza MD 01/03/2017 Office visit Heena Dumont MD 12/15/2016 Office visit Kaylynn Mendez MAINTENANCE MECH[employer]IC ELEVATORS 12/02/2016 Office visit Heena Dumont MD 11/23/2016 [facility] John Hoskins MD 11/23/2016 Office visit Kaylynn Mendez MAINTENANCE MECH[employer]IC ELEVATORS 11/17/2016 Office visit Kaylynn Mendez MA[employer]TENANCE MECH[employer]IC ELEVATORS 11/05/2016 Office visit Riccardo Cardoza MD 11/02/2016 Office visit Heena Dumont MD 10/06/2016 Office visit Kaylynn Mendez [employer]TE[employer]CH[employer] ELEVAT[employer] 09/22/2016 Office visit Heena Dumont MD 09/09/2016 Office visit Kaylynn Mendez [employer]TE[employer] ELEVAT[employer] 08/27/2016 Office visit Riccardo Cardoza MD 08/26/2016 Office visit Heena Dumont MD 07/09/2016 Office visit Riccardo Cardoza MD 07/06/2016 Office visit Heena Dumont MD 06/18/2016 Office visit Kaylynn Mendez [employer]TE[employer] MECH[employer]IC ELEVAT[employer] 06/07/2016 Office visit Sundeep Russell [employer]INTENANCE MECH[employer]IC ELEVAT[employer] 06/04/2016 Office visit Heena Dumont MD 05/13/2016 Office visit Heena Dumont MD 05/03/2016 Office visit Heena Dumont MD 04/26/2016 Office visit Kaylynn Mendez MAINTENANCE MECH[employer]IC ELEVATORS 04/14/2016 Office visit Heena Dumont MD 04/13/2016 Office visit Kaylynn Mendez MAINTENANCE MECH[employer]IC ELEVATORS 04/02/2016 Office visit Lena El MAINTENANCE MECH[employer]IC ELEVATORS 04/02/2016 Office visit Heena Dumont MD 03/26/2016 Office visit Yesica Falcon MAINTENANCE MECH[employer]IC ELEVATORS 03/17/2016 Office visit Heena Dumont MD 03/05/2016 Office visit Kaylynn Mendez MAINTENANCE MECH[employer]IC ELEVATORS 02/16/2016 Office visit Heena Dumont MD 02/14/2016 Office visit Na Jones MAINTENANCE MECH[employer]IC ELEVATORS 01/16/2016 Office visit Heena Dumont MD 12/16/2015 Office visit Heena Dumont MD 11/24/2015 Office visit Kaylynn Mendez MAINTENANCE MECH[employer]IC ELEVATORS 11/18/2015 Office visit Heena Dumont MD 11/03/2015 Office visit Sundeep Russell MAINTENANCE MECH[employer]IC ELEVATORS 10/20/2015 Office visit Kaylynn Mendez MAINTENANCE MECH[employer]IC ELEVATORS 09/23/2015 Office visit Kaylynn Mendez MAINTENANCE MECH[employer]IC ELEVATORS 09/16/[address] Pepe Figueroa MD 09/02/2015 Office visit Kaylynn Mendez MAINTENANCE MECH[employer]IC ELEVATORS 09/01/2015 Office visit Kaylynn Mendez MAINTENANCE MECH[employer]IC ELEVATORS 07/30/2015 Office visit Heena Dumont MD 07/15/2015 Office visit Kaylynn Mendez MAINTENANCE MECH[employer]IC ELEVATORS 07/04/2015 Office visit Heena Dumont MD 06/06/2015 Office visit Heena Dumont MD 06/06/2015 Office visit Kaylynn Mendez MAINTENANCE MECHANIC ELEVATORS 06/02/2015 Office visit Kaylynn Walker MAINTENANCE MECHANIC ELEVATORS 05/26/2015 Office visit Kaylynn Walker MAINTENANCE MECHANIC ELEVATORS 05/20/2015 Office visit Kaylynn Walker MAINTENANCE MECH[employer]IC ELEVATORS 05/08/2015 Office visit Heena Dumont MD 05/06/2015 Office visit Kaylynn Mendez MAINTENANCE MECH[employer]IC ELEVATORS 04/29/2015 Office visit Kaylynn Mendez MAINTENANCE MECHANIC ELEVATORS 03/27/2015 Voided Brittni Yanez MAINTENANCE MECHANIC ELEVATORS 03/21/2015 Office visit Heena Dumont MD 03/12/2015 Office visit Kaylynn Mendez MAINTENANCE MECHANIC ELEVATORS 02/26/2015 Office visit Brittni Yanez MAINTENANCE MECHANIC ELEVATORS 02/13/2015 Office visit Heena Dumont MD 01/15/2015 Office visit Brittni Yanez MAINTENANCE MECH[employer]IC ELEVATORS 01/13/2015 Office visit Heena Dumont MD 01/08/[address] Carol Fowler MD 01/01/2015 Office visit Brittni Yanez MAINTENANCE MECHANIC ELEVATORS 12/13/2014 Office visit Heena Dumont MD 11/27/2014 Office visit Kaylynn Mendez [employer]INTENA[employer]CE MECH[employer]IC ELEVATORS 11/14/2014 Office visit Heena Dumont MD 10/18/2014 Office visit Heena Dumont MD 10/17/2014 [facility] John Hoskins MD 10/09/2014 Office visit Heena Dumont MD 09/25/2014 Office visit Heena Dumont MD 09/17/2014 Office visit Kaylynn Mendez MAINTENANCE MECH[employer]IC ELEVATORS 09/04/2014 Office visit Heena Dumont MD 08/28/2014 Office visit Kaylynn Mendez MAINTENANCE MECH[employer]IC ELEVATORS 08/23/2014 [facility] John Hoskins MD 08/01/2014 Office visit Kaylynn Mendez MAINTENANCE MECH[employer]IC ELEVATORS 07/29/2014 Office visit Heena Dumont MD 07/25/2014 Nurse visit Heena Dumont MD 07/17/2014 Office visit Kaylynn Mendez MAINTENANCE MECH[employer]IC ELEVATORS 07/11/2014 Office visit Heena Dumont MD 07/01/2014 Office visit Heena Dumont MD 06/25/2014 Office visit Kaylynn Mendez MAINTENANCE MECH[employer]IC ELEVATORS 06/12/2014 Office visit Kaylynn Mendez MAINTENANCE MECHANIC ELEVATORS 06/06/2014 Office visit Kaylynn Mendez MAINTENANCE MECHANIC ELEVATORS 05/27/2014 Office visit Heena Dumont MD 04/20/2014 Office visit Yesica Falcon MAINTENANCE MECHANIC ELEVATORS 03/29/2014 Office visit Na Jones MAINTENANCE MECHANIC ELEVATORS 03/15/2014 Office visit Heena Dumont MD 2014 Office visit Heena Dumont MD 2014 [facility] John Hoskins MD 02/27/2014 Nurse visit Heena Dumont MD 02/13/2014 Office visit Lena El MAINTENANCE MECH[employer]IC ELEVATORS 02/07/2014 Office visit Heena Dumont MD 02/03/2014 Office visit Na Jones MAINTENANCE MECH[employer]IC ELEVATORS 01/30/2014 Office visit Kaylynn Mendez MAINTENANCE MECH[employer]IC ELEVATORS 01/24/2014 Office visit Sundeep Russell MAINTENANCE MECHANIC ELEVATORS 01/16/2014 Office visit Kaylynn Walker MAINTENANCE MECH[employer]IC ELEVATORS 01/10/2014 Nurse visit Kaylynn Walker MAINTENANCE MECH[employer]IC ELEVATORS 01/08/2014 Office visit Kaylynn Walker MAINTENANCE MECHANIC ELEVATORS 12/05/2013 Office visit Kaylynn Walker MAINTENANCE MECH[employer]IC ELEVATORS 11/21/2013 Office visit Kaylynn Walker MAINTENANCE MECH[employer]IC ELEVATORS 10/23/2013 Office visit Brittni Yanez MAINTENANCE MECHANIC ELEVATORS 10/17/2013 Nurse visit Heena Dumont MD 10/12/2013 Office visit Kaylynn Mendez MAINTENANCE MECH[employer]IC ELEVATORS 10/02/2013 Office visit Heena Dumont MD 09/20/2013 Nurse visit Kaylynn Walker MAINTENANCE MECH[employer] ELEVATORS 09/20/2013 Voided Heena Dumont MD 09/14/2013 Office visit Kaylynn Walker [employer]TENAN[employer]CH[employer] ELEVATORS 09/05/2013 Office visit Sundeep Russell MAINTENANCE MECH[employer]IC ELEVATORS 09/04/2013 Nurse visit Kaylynn Walker MAINTENANCE MECH[employer]IC ELEVATORS 08/31/2013 Office visit Kaylynn Walker MAINTENANCE MECH[employer]IC ELEVATORS 08/23/2013 Office visit Heena Dumont MD 08/10/2013 Office visit Kaylynn Walker MAINTENANCE MECH[employer]IC ELEVATORS 07/25/2013 Office visit Kaylynn Walker MAINTENANCE MECH[employer]IC ELEVATORS 07/18/2013 Office visit Kaylynn Walker MAINTENANCE MECH[employer]IC ELEVATORS 07/12/2013 Office visit Kaylynn Walker MAINTENANCE MECH[employer]IC ELEVATORS 06/28/2013 Nurse visit Kaylynn Walker MAINTENANCE MECH[employer]IC ELEVATORS 06/14/2013 Nurse visit Kaylynn Walker MAINTENANCE MECH[employer]IC ELEVATORS 06/08/2013 Nurse visit Kaylynn Walker MAINTENANCE MECH[employer]IC ELEVATORS 05/31/2013 Nurse visit Chadd Norris DO 05/18/2013 Office visit Terese Davidson MD 05/16/2013 Office visit Kaylynn Mendez [employer]INTENA[employer]CE MECH[employer] ELEVATORS 05/09/2013 Office visit Kaylynn Mendez MAINTENANCE MECH[employer]IC ELEVATORS 04/29/2013 [facility] Eliseo Hoskins MD 04/25/2013 Nurse visit Kaylynn Walker MAINTENANCE MECH[employer]IC ELEVATORS 04/17/2013 Office visit Kaylynn Walker MAINTENANCE MECHANIC ELEVATORS 04/03/2013 Nurse visit Kaylynn Mendez MAINTENANCE MECH[employer]IC ELEVATORS 04/03/2013 Office visit Terese Davidson MD 03/28/2013 Office visit Sundeep Russell MAINTENANCE MECHANIC ELEVATORS 03/21/2013 Office visit Kaylynn Mendez MAINTENANCE MECH[employer]IC ELEVATORS 03/20/2013 Office visit Terese Davidson MD 03/14/2013 Nurse visit Kaylynn Mendez MAINTENANCE MECH[employer]IC ELEVATORS 03/05/2013 Nurse visit Kaylynn Mendez MAINTENANCE MECHANIC ELEVATORS 02/19/2013 Office visit Terese Davidson MD 02/16/2013 Nurse visit Kaylynn Mendez MAINTENANCE MECHANIC ELEVATORS 02/09/2013 Office visit Sundeep Russell MAINTENANCE MECHANIC ELEVATORS 02/08/2013 Nurse visit Kaylynn Mendez MAINTENANCE MECHANIC ELEVATORS 02/01/2013 Nurse visit Kaylynn Walker MAINTENANCE MECHANIC ELEVATORS 01/26/2013 Nurse visit Sabrina Mendez GARMENT STEAMER 01/25/2013 Office visit Kaylynn Mendez MAINTENANCE MECHANIC ELEVATORS 01/22/2013 Office visit Yoan Castaneda MD 01/18/2013 Nurse visit Kaylynn Walker MAINTENANCE MECHANIC ELEVATORS 01/11/2013 Nurse visit Kaylynn Walker MAINTENANCE MECHANIC ELEVATORS 01/05/2013 Nurse visit Kaylynn Walker MAINTENANCE MECHANIC ELEVATORS 12/29/2012 Office visit Kaylynn Walker MAINTENANCE MECHANIC ELEVATORS 11/27/2012 Office visit Kaylynn Walker MAINTENANCE MECHANIC ELEVATORS 11/08/2012 Office visit Odell Tierney MD 11/08/2012 Voided Odell Tierney MD 11/07/2012 Office visit Kaylynn Walker MAINTENANCE MECH[employer]IC ELEVATORS 10/31/2012 [facility] John Hoskins MD 10/31/2012 Office visit Kaylynn Walker MAINTENANCE MECHANIC ELEVATORS 10/19/2012 Office visit Genoveva Ayala MAINTENANCE MECHANIC ELEVATORS 10/10/2012 Office visit Kaylynn Walker MAINTENANCE MECHANIC ELEVATORS 10/03/2012 Office visit Kaylynn Walker MAINTENANCE MECHANIC ELEVATORS 09/26/2012 Office visit Kaylynn Walker MAINTENANCE MECHANIC ELEVATORS 09/06/2012 Office visit Kaylynn Walker MAINTENANCE MECHANIC ELEVATORS 09/06/2012 Office visit Odell Tierney MD 08/31/2012 Voided Kaylynn Mendez MAINTENANCE MECHANIC ELEVATORS 07/28/2012 Office visit Kaylynn Walker MAINTENANCE MECHANIC ELEVATORS 07/27/2012 Office visit David Joyner DO 07/20/2012 [facility] David Ar DO 07/13/2012 [facility] DO 07/11/2012 Office visit Kaylynn Mendez MAINTENANCE MECHANIC ELEVATORS 06/27/2012 [facility] Odell Tierney MD 06/21/2012 Office visit David Joyner DO 06/21/2012 Office visit Odell Tierney MD 06/20/2012 Office visit Brittni Yanez MAINTENANCE MECHANIC ELEVATORS 06/06/2012 Office visit Odell Tierney MD 05/03/2012 Office visit Kaylynn Mendez MAINTENANCE MECHANIC ELEVATORS 04/28/2012 Office visit Brittni Yanez MAINTENANCE MECHANIC ELEVATORS 04/11/2012 Office visit Kaylynn Mendez MAINTENANCE MECHANIC ELEVATORS 04/06/2012 [facility] John Hoskins MD 03/30/2012 Office visit Kaylynn Walker MAINTENANCE MECHANIC ELEVATORS 03/15/2012 Office visit Kaylynn Andrea MAINTENANCE MECHANIC ELEVATORS 03/15/2012 Office visit Odell Tierney MD 02/09/2012 Office visit Kaylynn Walker MAINTENANCE MECHANIC ELEVATORS 12/23/2011 Office visit Kaylynn Walker MAINTENANCE MECHANIC ELEVATORS 11/02/2011 Office visit Kaylynn Walker MAINTENANCE MECHANIC ELEVATORS 10/14/2011 Office visit Kaylynn Walker MAINTENANCE MECHANIC ELEVATORS 09/27/2011 Office visit Kaylynn Walker MAINTENANCE MECHANIC ELEVATORS 08/19/2011 [facility] Hoskins MD 08/18/2011 [facility] John Hoskins MD 08/18/2011 Office visit Kaylynn Mendez MAINTENANCE MECHANIC ELEVATORS 08/02/2011 Office visit Kaylynn Mendez MAINTENANCE MECHANIC ELEVATORS 07/08/2011 Office visit Kaylynn Mendez MAINTENANCE MECHANIC ELEVATORS 07/05/2011 Office visit Odell Tierney MD 06/15/2011 Office visit Kaylynn Mendez MAINTENANCE MECH[employer]IC ELEVATORS 05/14/2011 Office visit Kaylynn Mendez MAINTENANCE MECHANIC ELEVATORS 05/11/2011 Office visit Odell Tierney MD 04/28/2011 Office visit Kaylynn Mendez MAINTENANCE MECH[employer]IC ELEVATORS 03/02/2011 Office visit Chadd Norris DO 02/17/2011 [...]
--- OUTSIDE RECORDS SUMMARY | 2018-05-09 23:18 | XMS REPORT ---
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 jcmtmwcf-alkeaxepm-NW 3.5-10,000-1 mg/mL-unit/mL-% otic drops,suspension 201607/23/2016 instill 4 [...] 04/28/2011 12:00 AM Decadron 1 mg [facility]#[id number] (Jr) Reviewed 04/28/2011 12:00 AM Depo-Medrol 80 mg [facility]#[id number]-Egqgkkbc Reviewed 09/02/2015 12:00 AM Toradol 60 Mg ND#0196-8656-87 Reviewed 09/02/2015 12:00 AM Phenergan, Up to 50 Mg RHC Medicaid Reviewed 09/16/2015 12:00 AM Toradol 60 Mg [facility]#7968-3344-33 Reviewed 09/16/2015 12:00 AM Phenergan Up to 50 mg RHC Medicare Reviewed 05/11/2011 12:00 AM N BLOCK INJ OCCIPITAL Reviewed 05/11/2011 12:00 AM Kenalog Xd-[address]-20 ANNA Reviewed 11/13/2015 12:00 AM ASSAY OF [...] 07/08/2011 12:00 AM Toradol,15mg [facility]#[id number], [place] Reviewed 07/08/2011 12:00 AM Phenergan 50 Mg Im [facility] 6402-7832-02 [place] Reviewed 01/21/2016 12:00 AM ECG MONIT/REPRT UP TO 48 HRS Returned 08/02/2011 12:00 AM THER/PROPH/DIAG INJ SC/IM Reviewed 08/02/2011 12:00 AM Decadron 1 mg [facility]#[id number] (Jr) Reviewed 08/02/2011 12:00 AM Depo-Medrol 80 mg [facility]#[id number]-Pmxgwrmm Reviewed 03/05/2016 12:00 AM COMPLETE CBC W/AUTO DIFF WBC Reviewed 03/05/2016 12:00 AM STREP A ASSAY W/OPTIC Reviewed 03/05/2016 12:00 AM C-REACTIVE PROTEIN Reviewed 03/18/2016 12:00 AM [facility] MEDIC[facility] - flu vaccine administration Reviewed [...] AM Depo-Medrol 80 mg [facility]#[id number]-Owzmnkbp Reviewed 09/27/2011 12:00 AM Depo-Medrol 40 mg [facility]#[id number] Reviewed 07/06/2016 12:00 AM CHEST X-RAY 4/> [...] Reviewed 12/23/2011 12:00 AM Decadron 1 mg [place]#[id number] (Jr) Reviewed 12/23/2011 12:00 AM Depo-Medrol 80 mg [facility]#[id number]-Idshhlfu Reviewed 11/02/2016 11:45 AM URINALYSIS AUTO W/O [...] Reviewed 02/09/2012 12:00 AM Decadron 1 mg ND#[id number] (Jr) Reviewed 02/09/2012 12:00 AM Depo-Medrol 80 mg N[facility]#[id number]-Qtjbpgdf Reviewed 02/21/2017 12:00 AM CULTURE OTHR SPECIMN AEROBIC Returned 02/21/2017 12:00 AM INFLUENZA ASSAY W/OPTIC Returned 02/23/2017 12:00 AM COMPLETE CBC W/AUTO DIFF WBC Reviewed 02/23/2017 12:00 AM X-RAY EXAM OF KNEE 3 Returned 03/15/2012 12:00 AM N BLOCK INJ OCCIPITAL Reviewed 03/15/2012 12:00 AM Kenalog Tb-[address]-20 ANNA Reviewed 04/11/2012 12:00 AM COMPLETE CBC [...] 12:00 AM Decadron, Per 1 Mg ND# [address]-34 Reviewed 06/20/2012 12:00 AM Depo-Medrol, Per 80 Mg NDC#3186-8837-58 Reviewed 09/06/2012 12:00 AM N BLOCK INJ OCCIPITAL Reviewed 09/06/2012 12:00 AM Quentin Fz-[address]-20 ANNA Reviewed 09/06/2012 12:00 AM X-RAY EXAM RIBS UNI 2 VIEWS Reviewed 09/26/2012 12:00 AM THER/PROPH/DIAG INJ SC/IM Reviewed 09/26/2012 12:00 AM Decadron, Per 1 Mg ND# [address]-75 Reviewed 09/26/2012 12:00 AM Depo-Medrol, Per 80 Mg NDC#1538-2806-44 Reviewed 10/03/2012 12:00 AM URINALYSIS AUTO W/O SCOPE Reviewed 10/03/2012 12:00 AM THER/PROPH/DIAG INJ SC/IM Reviewed 10/03/2012 12:00 AM Toradol 60 Mg [facility]#2557-0862-64 Reviewed 10/03/2012 12:00 AM Phenergan, 25Mg [facility]#9543-3061-50 Reviewed 10/19/2012 12:00 AM N BLOCK INJ OCCIPITAL Reviewed 10/19/2012 12:00 AM Kenalog, Per 10 Mg [facility]#4933-4447-13 Reviewed 10/19/2012 12:00 AM Toradol 30 Mg [facility]#7582-2248-22 Reviewed 10/19/2012 12:00 AM THER/PROPH/DIAG INJ SC/IM Reviewed 10/31/2012 12:00 AM COMPLETE CBC W/AUTO DIFF WBC Reviewed 10/31/2012 12:00 AM COMPREHEN METABOLIC PANEL Reviewed 10/31/2012 12:00 AM LIPID PANEL Reviewed 10/31/2012 12:00 AM ELECTROCARDIOGRAM COMPLETE Reviewed 11/03/2012 12:[address] THORAX W/O & W/DYE Reviewed 11/08/2012 12:00 AM N BLOCK INJ OCCIPITAL Reviewed 11/08/2012 12:00 AM Kenalog Mg-[address]-20 ANNA Reviewed 11/27/2012 12:00 AM COMPLETE CBC [...] Per 1 Mg [facility]# [address]-48 Reviewed 01/25/2013 12:00 AM Depo-Medrol, Per 80 Mg [facility]#6075-1130-51 Reviewed 01/26/2013 12:00 AM IMMUNOTHERAPY ONE INJECTION [...] Per 1 Mg [facility]# [address]-85 Reviewed 05/16/2013 12:00 AM Depo-Medrol, Per 80 Mg [facility]#3944-6741-37 Reviewed 05/31/2013 12:00 AM IMMUNOTHERAPY INJECTIONS Reviewed 06/08/2013 12:00 AM IMMUNOTHERAPY INJECTIONS Reviewed 06/14/2013 12:00 AM IMMUNOTHERAPY INJECTIONS Reviewed 06/28/2013 12:00 AM IMMUNOTHERAPY INJECTIONS Reviewed 07/12/2013 12:00 AM X-RAY EXAM RIBS UNI 2 VIEWS Reviewed 07/18/2013 12:00 AM Toradol 60 Mg [facility]#4232-7806-86 Reviewed 07/18/2013 12:00 AM THER/PROPH/DIAG INJ SC/IM Reviewed 08/23/2013 12:00 AM COMPLETE CBC W/AUTO DIFF WBC Reviewed 08/23/2013 12:00 AM COMPREHEN METABOLIC PANEL Reviewed 08/23/2013 12:00 AM LIPID PANEL Reviewed 08/31/2013 12:00 AM X-RAY EXAM OF LOWER LEG Reviewed 09/04/2013 12:00 AM IMMUNOTHERAPY INJECTIONS Reviewed 09/14/2013 12:00 AM THER/PROPH/DIAG INJ SC/IM Reviewed 09/14/2013 12:00 AM Decadron, Per 1 Mg [facility]# [address]-16 Reviewed 09/14/2013 12:00 AM Depo-Medrol, Per 80 Mg [facility]#3004-4964-79 Reviewed 09/20/2013 12:00 AM IMMUNOTHERAPY INJECTIONS Reviewed [...] INJ OCCIPITAL Reviewed 12/10/2009 12:00 AM Kenalog Kv-08960-2008-20 ANNA Reviewed 12/16/2009 12:00 AM HIV-1ANTIBODY Reviewed 12/16/2009 12:00 AM COMPLETE CBC W/AUTO DIFF WBC Reviewed 12/16/2009 12:00 AM METABOLIC PANEL TOTAL CA Reviewed 12/16/2009 12:00 AM Type and screen Reviewed 12/16/2009 12:00 AM PROTHROMBIN TIME Reviewed 12/16/2009 12:00 AM THROMBOPLASTIN TIME PARTIAL Reviewed 03/18/2010 12:00 AM DRAIN/INJ JOINT/BURSA W/O US Reviewed 03/18/2010 12:00 AM Kenalog Oa-[address]-20 ANNA Reviewed 11/21/2013 12:00 AM RADEX HAND MINIMUM 3 VIEWS Reviewed 06/03/2010 12:00 AM INJ TRIGGER POINT 1/2 MUSCL Reviewed 06/03/2010 12:00 AM Kenalog per 10Mg Im-[facility]#[address]-61(Niall) Reviewed 12/05/2013 12:00 AM COMPLETE CBC W/AUTO [...] Kenalog per 10Mg Im-[facility]#[address]-91(Niall) Reviewed 2014 12:00 AM COMPLETE CBC W/AUTO [...] INJ OCCIPITAL Reviewed 10/01/2010 12:00 AM Kenalog Aq-[address]-20 ANNA Reviewed 07/25/2014 12:00 AM THER/PROPH/DIAG INJ [...] 141 Influenza 04/24/2014 sanofi pasteur PMC Fluzone [id number] Intramuscular Left Upper Arm 02/27/2014 01/15/2014 141 Influenza 02/13/2015 sanofi pasteur PMC Fluzone [id number] Intramuscular Left Deltoid 02/13/2015 01/03/2015 140 Tdap 06/06/2015 [employer] SKB BOOSTRIX [id number] Intramuscular Left Deltoid 06/06/2015 07/23/2014 115 Influenza 03/18/2016 sanofi pasteur PMC Fluzone [id number] Intramuscular Left Deltoid 03/17/2016 01/03/2015 141 History [...] mellitus with hyperglycemia 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 Jun 24 [...] Number Start Date Medicare RHC Medicare RHC [id number] N/A [facility] - RHC - Community Plan of [facility] RHC Comm [id number] N/A Medicare Part A Medicare - Lab/Xray [id number] N/A Medicare Part B Medicare Of [place] [id number] Monday, February 28, 2000 [place] [facility] [place] [id number] Tuesday, November 10, 2009 Medicare Part A Medicare Part A [id number] N/A [place] [employer] - RHC [place] [employer] Faculty Member Prog - RHC [id number] May [facility] Plan of [facility] Comm Plan of [id number] Wednesday, May 30, 2012 History of Encounters Visit Date Visit Type Provider 07/18/2017 Office visit Heena Dumnot MD 06/28/2017 Office visit 06/28/2017 Office visit Lena El INSTRUMENT REPAIRER STEAM PLANT 06/24/2017 Office visit Sundeep Russell INSTRUMENT REPAIRER STEAM [employer]ANT 06/02/2017 Office visit Heena Dumont MD 04/20/2017 Office visit 04/20/2017 Office visit 04/20/2017 Office visit 04/20/2017 Office visit Heena Dumont MD 03/22/2017 Office visit Heena Dumont MD 03/05/2017 Office visit Lena Chaves INSTRUMENT REPAIRER STEAM PLANT 02/23/2017 Office visit Symone Marie INSTRUMENT REPAIRER STEAM PLANT 02/21/2017 Office visit Heena Dumont MD 02/15/2017 Office visit Heena Dumont MD 02/02/2017 Office visit Heena Dumont MD 01/07/2017 Office visit Riccardo Cardoza MD 01/03/2017 Office visit Heena Dumont MD 12/15/2016 Office visit Kaylynn Mendez INSTRUMENT REPAIRER STEAM PLANT 12/02/2016 Office visit Heena Dumont MD 11/23/2016 Zuleika Hoskins MD 11/23/2016 Office visit Kaylynn Mendez INSTRUMENT REPAIRER STEAM PLANT 11/17/2016 Office visit Kaylynn Mendez INSTRUMENT REPAIRER STEAM PLANT 11/05/2016 Office visit Riccardo Cardoza MD 11/02/2016 Office visit Heena Dumont MD 10/06/2016 Office visit Kaylynn Mendez INSTRUMENT REPAIRER STEAM PLANT 09/22/2016 Office visit Heena Dumont MD 09/09/2016 Office visit Kaylynn Mendez INSTRUMENT REPAIRER STEAM PLANT 08/27/2016 Office visit Riccardo Cardoza MD 08/26/2016 Office visit Heena Dumont MD 07/09/2016 Office visit Riccardo Cardoza MD 07/06/2016 Office visit Heena Dumont MD 06/18/2016 Office visit Kaylynn Mendez INSTRUMENT REPAIRER STEAM PLANT 06/07/2016 Office visit Sundeep Russell INSTRUMENT REPAIRER STEAM PLANT 06/04/2016 Office visit Heena Dumont MD 05/13/2016 Office visit Heena Dumont MD 05/03/2016 Office visit Heena Dumont MD 04/26/2016 Office visit Kaylynn Mendez INSTRUMENT REPAIRER STEAM PLANT 04/14/2016 Office visit Heena Dumont MD 04/13/2016 Office visit Kaylynn Mendez INSTRUMENT REPAIRER STEAM PLANT 04/02/2016 Office visit Lena El INSTRUMENT REPAIRER STEAM PLANT 04/02/2016 Office visit Heena Dumont MD 03/26/2016 Office visit Yesica Falcon INSTRUMENT REPAIRER STEAM PLANT 03/17/2016 Office visit Heena Dumont MD 03/05/2016 Office visit Kaylynn Mendez INSTRUMENT REPAIRER STEAM PLANT 02/16/2016 Office visit Heena Dumont MD 02/14/2016 Office visit Na Jones INSTRUMENT REPAIRER STEAM PLANT 01/16/2016 Office visit Heena Dumont MD 12/16/2015 Office visit Heena Dumont MD 11/24/2015 Office visit Kaylynn Mendez INSTRUMENT REPAIRER STEAM PLANT 11/18/2015 Office visit Heena Dumont MD 11/03/2015 Office visit Sundeep Russell INSTRUMENT REPAIRER STEAM PLANT 10/20/2015 Office visit Kaylynn Mendez INSTRUMENT REPAIRER STEAM PLANT 09/23/2015 Office visit Kaylynn Mendez INSTRUMENT REPAIRER STEAM PLANT 09/16/[address] Pepe Figueroa MD 09/02/2015 Office visit Kaylynn Mendez INSTRUMENT REPAIRER STEAM PLANT 09/01/2015 Office visit Kaylynn Mendez INSTRUMENT REPAIRER STEAM PLANT 07/30/2015 Office visit Heena Dumont MD 07/15/2015 Office visit Kaylynn Mendez INSTRUMENT REPAIRER STEAM PLANT 07/04/2015 Office visit Heena Dumont MD 06/06/2015 Office visit Heena Dumont MD 06/06/2015 Office visit Kaylynn Mendez INSTRUMENT REPAIRER STEAM PLANT 06/02/2015 Office visit Kaylynn Mendez INSTRUMENT REPAIRER STEAM PLANT 05/26/2015 Office visit Kaylynn Mendez INSTRUMENT REPAIRER STEAM PLANT 05/20/2015 Office visit Kaylynn Mendez INSTRUMENT REPAIRER STEAM PLANT 05/08/2015 Office visit Heena Dumont MD 05/06/2015 Office visit Kaylynn Mendez INSTRUMENT REPAIRER STEAM PLANT 04/29/2015 Office visit Kaylynn Mendez INSTRUMENT REPAIRER STEAM PLANT 03/27/2015 Voided Brittni Yanez INSTRUMENT REPAIRER STEAM PLANT 03/21/2015 Office visit Heena Dumont MD 03/12/2015 Office visit Kaylynn Mendez INSTRUMENT REPAIRER STEAM PLANT 02/26/2015 Office visit Brittni Yanez INSTRUMENT REPAIRER STEAM PLANT 02/13/2015 Office visit Heena Dumont MD 01/15/2015 Office visit Brittni Yanez INSTRUMENT REPAIRER STEAM PLANT 01/13/2015 Office visit Heena Dumont MD 01/08/[address] Carol Fowler MD 01/01/2015 Office visit Brittni Yanez INSTRUMENT REPAIRER STEAM PLANT 12/13/2014 Office visit Heena Dumont MD 11/27/2014 Office visit Kaylynn Mendez INSTRUMENT REPAIRER STEAM PLANT 11/14/2014 Office visit Heena Dumont MD 10/18/2014 Office visit Heena Dumont MD 10/17/2014 Hospital Eliseo Hoskins MD 10/09/2014 Office visit Heena Dumont MD 09/25/2014 Office visit Heena Dumont MD 09/17/2014 Office visit Kaylynn Mendez INSTRUMENT REPAIRER STEAM PLANT 09/04/2014 Office visit Heena Dumont MD 08/28/2014 Office visit Kaylynn Mendez INSTRUMENT REPAIRER STEAM PLANT 08/23/2014 [facility] Eliseo Hoskins MD 08/01/2014 Office visit Kaylynn Mendez INSTRUMENT REPAIRER STEAM PLANT 07/29/2014 Office visit Heena Dumont MD 07/25/2014 Nurse visit Heena Dumont MD 07/17/2014 Office visit Kaylynn Mendez INSTRUMENT REPAIRER STEAM PLANT 07/11/2014 Office visit Heena Dumont MD 07/01/2014 Office visit Heena Dumont MD 06/25/2014 Office visit Kaylynn Mendez INSTRUMENT REPAIRER STEAM PLANT 06/12/2014 Office visit Kaylynn Mendez INSTRUMENT REPAIRER STEAM PLANT 06/06/2014 Office visit Kaylynn Mendez INSTRUMENT REPAIRER STEAM PLANT 05/27/2014 Office visit Heena Dumont MD 04/20/2014 Office visit Yesica Falcon INSTRUMENT REPAIRER STEAM PLANT 03/29/2014 Office visit Na Jones INSTRUMENT REPAIRER STEAM PLANT 03/15/2014 Office visit Heena Dumont MD 2014 Office visit Heena Dumont MD 2014 Hospital John Hoskins MD 02/27/2014 Nurse visit Heena Dumont MD 02/13/2014 Office visit Lena El INSTRUMENT REPAIRER STEAM PLANT 02/07/2014 Office visit Heena Dumont MD 02/03/2014 Office visit Na Jones INSTRUMENT REPAIRER STEAM PLANT 01/30/2014 Office visit Kaylynn Mendez INSTRUMENT REPAIRER STEAM PLANT 01/24/2014 Office visit Sundeep Russell INSTRUMENT REPAIRER STEAM PLANT 01/16/2014 Office visit Kaylynn Mendez INSTRUMENT REPAIRER STEAM PLANT 01/10/2014 Nurse visit Kaylynn Mendez INSTRUMENT REPAIRER STEAM PLANT 01/08/2014 Office visit Kaylynn Walker INSTRUMENT REPAIRER STEAM PLANT 12/05/2013 Office visit Kaylynn Walker INSTRUMENT REPAIRER STEAM PLANT 11/21/2013 Office visit Kaylynn Walker INSTRUMENT REPAIRER STEAM PLANT 10/23/2013 Office visit Brittni Yanez INSTRUMENT REPAIRER STEAM PLANT 10/17/2013 Nurse visit Heena Dumont MD 10/12/2013 Office visit Kaylynn Mendez INSTRUMENT REPAIRER STEAM PLANT 10/02/2013 Office visit Heena Dumont MD 09/20/2013 Nurse visit Kaylynn Walker INSTRUMENT REPAIRER STEAM PLANT 09/20/2013 Voided Heena Dumont MD 09/14/2013 Office visit Kaylynn Walker INSTRUMENT REPAIRER STEAM PLANT 09/05/2013 Office visit Sundeep Russell INSTRUMENT REPAIRER STEAM PLANT 09/04/2013 Nurse visit Kaylynn Walker INSTRUMENT REPAIRER STEAM PLANT 08/31/2013 Office visit Kaylynn Walker INSTRUMENT REPAIRER STEAM PLANT 08/23/2013 Office visit Heena Dumont MD 08/10/2013 Office visit Kaylynn Walker INSTRUMENT REPAIRER STEAM PLANT 07/25/2013 Office visit Kaylynn Walker INSTRUMENT REPAIRER STEAM PLANT 07/18/2013 Office visit Kaylynn Walker INSTRUMENT REPAIRER STEAM PLANT 07/12/2013 Office visit Kaylynn Walker INSTRUMENT REPAIRER STEAM PLANT 06/28/2013 Nurse visit Kaylynn Walker INSTRUMENT REPAIRER STEAM PLANT 06/14/2013 Nurse visit Kaylynn Walker INSTRUMENT REPAIRER STEAM PLANT 06/08/2013 Nurse visit Kaylynn Walker INSTRUMENT REPAIRER STEAM PLANT 05/31/2013 Nurse visit Chadd Norris DO 05/18/2013 Office visit Terese Davidson MD 05/16/2013 Office visit Kaylynn Mendez INSTRUMENT REPAIRER STEAM PLANT 05/09/2013 Office visit Kaylynn Mendez INSTRUMENT REPAIRER STEAM PLANT 04/29/2013 [facility] Eliseo Hoskins MD 04/25/2013 Nurse visit Kaylynn Walker INSTRUMENT REPAIRER STEAM PLANT 04/17/2013 Office visit Kaylynn Walker INSTRUMENT REPAIRER STEAM PLANT 04/03/2013 Nurse visit Kaylynn Mendez INSTRUMENT REPAIRER STEAM PLANT 04/03/2013 Office visit Terese Davidson MD 03/28/2013 Office visit Sundeep Russell INSTRUMENT REPAIRER STEAM PLANT 03/21/2013 Office visit Kaylynn Mendez INSTRUMENT REPAIRER STEAM PLANT 03/20/2013 Office visit Terese Davidson MD 03/14/2013 Nurse visit Kaylynn Mendez INSTRUMENT REPAIRER STEAM PLANT 03/05/2013 Nurse visit Kaylynn Mendez INSTRUMENT REPAIRER STEAM PLANT 02/19/2013 Office visit Terese Davidson MD 02/16/2013 Nurse visit Kaylynn Mendez INSTRUMENT REPAIRER STEAM PLANT 02/09/2013 Office visit Sundeep Russell INSTRUMENT REPAIRER STEAM PLANT 02/08/2013 Nurse visit Kaylynn Walker INSTRUMENT REPAIRER STEAM PLANT 02/01/2013 Nurse visit Kaylynn Walker INSTRUMENT REPAIRER STEAM PLANT 01/26/2013 Nurse visit Sabrina Mendez RANGE MOUNTER 01/25/2013 Office visit Kaylynn Mendez INSTRUMENT REPAIRER STEAM PLANT 01/22/2013 Office visit Yoan Castaneda MD 01/18/2013 Nurse visit Kaylynn Walker INSTRUMENT REPAIRER STEAM PLANT 01/11/2013 Nurse visit Kaylynn Walker INSTRUMENT REPAIRER STEAM PLANT 01/05/2013 Nurse visit Kaylynn Walker INSTRUMENT REPAIRER STEAM PLANT 12/29/2012 Office visit Kaylynn Walker INSTRUMENT REPAIRER STEAM PLANT 11/27/2012 Office visit Kaylynn Walker INSTRUMENT REPAIRER STEAM PLANT 11/08/2012 Office visit Odell Tierney MD 11/08/2012 Voided Odell Tierney MD 11/07/2012 Office visit Kaylynn Walker INSTRUMENT REPAIRER STEAM PLANT 10/31/2012 [facility] John Hoskins MD 10/31/2012 Office visit Kaylynn Walker INSTRUMENT REPAIRER STEAM PLANT 10/19/2012 Office visit Genoveva Ayala INSTRUMENT REPAIRER STEAM PLANT 10/10/2012 Office visit Kaylynn Walker INSTRUMENT REPAIRER STEAM PLANT 10/03/2012 Office visit Kaylynn Walker INSTRUMENT REPAIRER STEAM PLANT 09/26/2012 Office visit Kaylynn Walker INSTRUMENT REPAIRER STEAM PLANT 09/06/2012 Office visit Kaylynn Walker INSTRUMENT REPAIRER STEAM PLANT 09/06/2012 Office visit Odell Tierney MD 08/31/2012 Voided Kaylynn Mendez INSTRUMENT REPAIRER STEAM PLANT 07/28/2012 Office visit Kaylynn Walker INSTRUMENT REPAIRER STEAM PLANT 07/27/2012 Office visit David Joyner DO 07/20/2012 [facility] DO 07/13/2012 [facility] DO 07/11/2012 Office visit Kaylynn Mendez INSTRUMENT REPAIRER STEAM PLANT 06/27/2012 [facility] Odell Tierney MD 06/21/2012 Office visit David Joyner DO 06/21/2012 Office visit Odell Tierney MD 06/20/2012 Office visit Brittni Yanez INSTRUMENT REPAIRER STEAM PLANT 06/06/2012 Office visit Odell Tierney MD 05/03/2012 Office visit Kaylynn Mendez INSTRUMENT REPAIRER STEAM PLANT 04/28/2012 Office visit Brittni Yanez INSTRUMENT REPAIRER STEAM PLANT 04/11/2012 Office visit Kaylynn Mendez INSTRUMENT REPAIRER STEAM PLANT 04/06/2012 [facility] John Hoskins MD 03/30/2012 Office visit Kaylynn Walker INSTRUMENT REPAIRER STEAM PLANT 03/15/2012 Office visit Kaylynn Walker INSTRUMENT REPAIRER STEAM PLANT 03/15/2012 Office visit Odell Tierney MD 02/09/2012 Office visit Kaylynn Walker INSTRUMENT REPAIRER STEAM PLANT 12/23/2011 Office visit Kaylynn Walker INSTRUMENT REPAIRER STEAM PLANT 11/02/2011 Office visit Kaylynn Walker INSTRUMENT REPAIRER STEAM PLANT 10/14/2011 Office visit Kaylynn Walker INSTRUMENT REPAIRER STEAM PLANT 09/27/2011 Office visit Kaylynn Walker INSTRUMENT REPAIRER STEAM PLANT 08/19/2011 Hospital John Hoskins MD 08/18/2011 [facility] John Hoskins MD 08/18/2011 Office visit Kaylynn Walker INSTRUMENT REPAIRER STEAM PLANT 08/02/2011 Office visit Kaylynn Walker INSTRUMENT REPAIRER STEAM PLANT 07/08/2011 Office visit Kaylynn Mendez INSTRUMENT REPAIRER STEAM PLANT 07/05/2011 Office visit Odell Tierney MD 06/15/2011 Office visit Kaylynn Mendez INSTRUMENT REPAIRER STEAM PLANT 05/14/2011 Office visit Kaylynn Mendez INSTRUMENT REPAIRER STEAM PLANT 05/11/2011 Office visit Odell Tierney MD 04/28/2011 Office visit Kaylynn Mendez INSTRUMENT REPAIRER STEAM PLANT 03/02/2011 Office visit Chadd Norris DO 02/17/2011 [...]
--- OUTSIDE RECORDS SUMMARY | 2018-05-09 23:25 | XMS REPORT ---
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 fwbapapc-iiqvvdrxo-HL 3.5-10,000-1 mg/mL-unit/mL-% otic drops,suspension 201607/23/2016 instill 4 [...] route [address] Annabel Uriasrineelima DS Oral 160-800 mg Oral Tablet 11/06/2009 [...] HC BMI BSA BMI Percentile O2 Sat(%) 08/15/2017 2:14:00 PM 126 mmHg 82 mmHg 101 bpm 18 rpm 97.1 F 166.375 lbs 63 in 29.47 kg/m2 1.83 m2 95 % 07/18/2017 3:02:00 PM 134 mmHg 80 mmHg 105 bpm 16 rpm 98.4 F 164.25 lbs 63 in 29.0953 kg/m 1.8198 m 97 % 06/28/2017 10:42:00 AM 123 mmHg [...] 191 lbs 64 in 32.7847 kg/m 1.9779 10/10/2012 10:45:00 AM 130 mmHg 74 mmHg [...] 04/28/2011 12:00 AM Decadron [address] [facility]#[id number] (Jr) Reviewed 04/28/2011 12:00 AM Depo-Medrol [address] [facility]#[id number]-Qbdzixhl Reviewed 09/02/2015 12:00 AM Toradol 60 Mg ND#0221-5715-69 Reviewed 09/02/2015 12:00 AM Phenergan, Up to 50 Mg RHC Medicaid Reviewed 09/16/2015 12:00 AM Toradol [address] [facility]#4641-5389-77 Reviewed 09/16/2015 12:00 AM Phenergan Up to 50 mg RHC Medicare Reviewed 05/11/2011 12:00 AM N BLOCK INJ OCCIPITAL Reviewed 05/11/2011 12:00 AM Kenalog Hk-[address]-20 ANNA Reviewed 11/13/2015 12:00 AM ASSAY OF [...] SC/IM Reviewed 07/08/2011 12:00 AM Toradol,15mg [facility]#[id number], [place] Reviewed 07/08/2011 12:00 AM Phenergan 50 Mg Im [facility] 7175-6132-78 [place] Reviewed 01/21/2016 12:00 AM ECG MONIT/REPRT UP TO 48 HRS Returned 08/02/2011 12:00 AM THER/PROPH/DIAG INJ SC/IM Reviewed 08/02/2011 12:00 AM Decadron [address] [facility]#[id number] (Jr) Reviewed 08/02/2011 12:00 AM Depo-Medrol [address] [facility]#[id number]-Sbqndkhi Reviewed 03/05/2016 12:00 AM COMPLETE CBC W/AUTO [...] 09/27/2011 12:00 AM Depo-Medrol [address] [facility]#[id number]-Xrqiehio Reviewed 09/27/2011 12:00 AM Depo-Medrol [address] [facility]#[id number] Reviewed 07/06/2016 12:00 AM CHEST X-RAY 4/> [...] Reviewed 12/23/2011 12:00 AM Decadron 1 mg ND#[id number] (Jr) Reviewed 12/23/2011 12:00 AM Depo-Medrol 80 mg NDC#[id number]-Ehncfxme Reviewed 11/02/2016 11:45 AM URINALYSIS AUTO W/O [...] Reviewed 02/09/2012 12:00 AM Decadron 1 mg ND#[id number] (Jr) Reviewed 02/09/2012 12:00 AM Depo-Medrol 80 mg NDC#[id number]-Raoealzt Reviewed 02/21/2017 12:00 AM CULTURE OTHR SPECIMN AEROBIC Returned 02/21/2017 12:00 AM INFLUENZA ASSAY W/OPTIC Returned 02/23/2017 12:00 AM COMPLETE CBC W/AUTO DIFF WBC Reviewed 02/23/2017 12:00 AM X-RAY EXAM OF KNEE 3 Returned 03/15/2012 12:00 AM N BLOCK INJ OCCIPITAL Reviewed 03/15/2012 12:00 AM Kenalog Cb-[address]-20 ANNA Reviewed 04/11/2012 12:00 AM COMPLETE CBC [...] 06/20/2012 12:00 AM Decadron, Per [address] [facility]# [address]-83 Reviewed 06/20/2012 12:00 AM Depo-Medrol, Per [address] [facility]#0630-0589-51 Reviewed 08/15/2017 12:00 AM COMPLETE CBC W/AUTO DIFF WBC Returned 08/15/2017 12:00 AM COMPREHEN METABOLIC PANEL Returned 08/15/2017 12:00 AM URINALYSIS AUTO W/SCOPE Returned 09/06/2012 12:00 AM N BLOCK INJ OCCIPITAL Reviewed 09/06/2012 12:00 AM Quentin Co-[address]-20 ANNA Reviewed 09/06/2012 12:00 AM X-RAY EXAM RIBS UNI 2 VIEWS Reviewed 09/26/2012 12:00 AM THER/PROPH/DIAG INJ SC/IM Reviewed 09/26/2012 12:00 AM Decadron, Per [address] [facility]# [address]-03 Reviewed 09/26/2012 12:00 AM Depo-Medrol, Per [address] [facility]#4445-3130-62 Reviewed 10/03/2012 12:00 AM URINALYSIS AUTO W/O SCOPE Reviewed 10/03/2012 12:00 AM THER/PROPH/DIAG INJ SC/IM Reviewed 10/03/2012 12:00 AM Toradol [address] [facility]#4293-3215-11 Reviewed 10/03/2012 12:00 AM Phenergan, 25Mg [facility]#6317-4422-28 Reviewed 10/19/2012 12:00 AM N BLOCK INJ OCCIPITAL Reviewed 10/19/2012 12:00 AM Kenalog, Per [address] [facility]#5538-6012-49 Reviewed 10/19/2012 12:00 AM Toradol [address] [facility]#1768-7364-56 Reviewed 10/19/2012 12:00 AM THER/PROPH/DIAG INJ SC/IM Reviewed 10/31/2012 12:00 AM COMPLETE CBC W/AUTO DIFF WBC Reviewed 10/31/2012 12:00 AM COMPREHEN METABOLIC PANEL Reviewed 10/31/2012 12:00 AM LIPID PANEL Reviewed 10/31/2012 12:00 AM ELECTROCARDIOGRAM COMPLETE Reviewed 11/03/2012 12:[address] THORAX W/O & W/DYE Reviewed 11/08/2012 12:00 AM N BLOCK INJ OCCIPITAL Reviewed 11/08/2012 12:00 AM Kenalog Df-[address]-20 ANNA Reviewed 11/27/2012 12:00 AM COMPLETE CBC [...] 12:00 AM Decadron, Per [address] [facility]# [address]-46 Reviewed 01/25/2013 12:00 AM Depo-Medrol, Per [address] [facility]#4489-4965-23 Reviewed 01/26/2013 12:00 AM IMMUNOTHERAPY ONE INJECTION [...] 12:00 AM Decadron, Per [address] [facility]# [address]-49 Reviewed 05/16/2013 12:00 AM Depo-Medrol, Per [address] [facility]#2635-0472-04 Reviewed 05/31/2013 12:00 AM IMMUNOTHERAPY INJECTIONS Reviewed 06/08/2013 12:00 AM IMMUNOTHERAPY INJECTIONS Reviewed 06/14/2013 12:00 AM IMMUNOTHERAPY INJECTIONS Reviewed 06/28/2013 12:00 AM IMMUNOTHERAPY INJECTIONS Reviewed 07/12/2013 12:00 AM X-RAY EXAM RIBS UNI 2 VIEWS Reviewed 07/18/2013 12:00 AM Toradol [address] [facility]#2350-4783-72 Reviewed 07/18/2013 12:00 AM THER/PROPH/DIAG INJ SC/IM Reviewed 08/23/2013 12:00 AM COMPLETE CBC W/AUTO DIFF WBC Reviewed 08/23/2013 12:00 AM COMPREHEN METABOLIC PANEL Reviewed 08/23/2013 12:00 AM LIPID PANEL Reviewed 08/31/2013 12:00 AM X-RAY EXAM OF LOWER LEG Reviewed 09/04/2013 12:00 AM IMMUNOTHERAPY INJECTIONS Reviewed 09/14/2013 12:00 AM THER/PROPH/DIAG INJ SC/IM Reviewed 09/14/2013 12:00 AM Decadron, Per [address] [facility]# [address]-41 Reviewed 09/14/2013 12:00 AM Depo-Medrol, Per [address] [facility]#2412-6099-75 Reviewed 09/20/2013 12:00 AM IMMUNOTHERAPY INJECTIONS Reviewed [...] INJ OCCIPITAL Reviewed 12/10/2009 12:00 AM Quentin SánchezSf-[address]-20 ANNA Reviewed 12/16/2009 12:00 AM HIV-1ANTIBODY Reviewed 12/16/2009 12:00 AM COMPLETE CBC W/AUTO DIFF WBC Reviewed 12/16/2009 12:00 AM METABOLIC PANEL TOTAL CA Reviewed 12/16/2009 12:00 AM Type and screen Reviewed 12/16/2009 12:00 AM PROTHROMBIN TIME Reviewed 12/16/2009 12:00 AM THROMBOPLASTIN TIME PARTIAL Reviewed 03/18/2010 12:00 AM DRAIN/INJ JOINT/BURSA W/O US Reviewed 03/18/2010 12:00 AM Quentin SánchezZa-[address]-20 ANNA Reviewed 11/21/2013 12:00 AM RADEX HAND MINIMUM 3 VIEWS Reviewed 06/03/2010 12:00 AM INJ TRIGGER POINT 1/2 MUSCL Reviewed 06/03/2010 12:00 AM Kenalog per 10Mg Im-[facility]#[address]-31(Niall) Reviewed 12/05/2013 12:00 AM COMPLETE CBC W/AUTO [...] AM Kenalog per 10Mg Im-[facility]#[address]-11(Niall) Reviewed 2014 12:00 AM COMPLETE CBC W/AUTO [...] INJ OCCIPITAL Reviewed 10/01/2010 12:00 AM Kenalog Ao-[address]-20 ANNA Reviewed 07/25/2014 12:00 AM THER/PROPH/DIAG INJ [...] Quant,IgM <0.80 RMSF , IgG, EIA Negative [facility] Spotted Fever,IgM 0.51 E. chaffeensis [...] 141 Influenza 04/24/2014 sanofi pasteur PMC Fluzone [id number] Intramuscular Left Upper Arm 02/27/2014 01/15/2014 141 Influenza 02/13/2015 sanofi pasteur PMC Fluzone [id number] Intramuscular Left Deltoid 02/13/2015 01/03/2015 140 Tdap 06/06/2015 [employer] SKB BOOSTRIX [id number] Intramuscular Left Deltoid 06/06/2015 07/23/2014 115 Influenza 03/18/2016 sanofi pasteur PMC Fluzone [id number] Intramuscular Left Deltoid 03/17/2016 01/03/2015 141 History [...] mellitus with hyperglycemia Jun 24 2017 10:33AM [facility] (current) use of insulin Jun 24 2017 [...] 2:20PM Muscle spasm Aug 15 2017 2:20PM Payers Insurance Name Company Name Plan Name Plan Number Policy Number Policy Group Number Start Date Medicare RHC Medicare RHC [id number] N/A [facility] - RHC - [facility] RHC Comm [id number] N/A Medicare Part A Medicare - Lab/Xray [id number] N/A Medicare Part B Medicare Of [place] [id number] Monday, February 28, 2000 [place] [facility] [place] [facility] [employer] [place]g [id number] Tuesday, November 10, 2009 Medicare Part A Medicare Part A [id number] N/A [place] [facility] - RHC [place] [facility] - RHC [id number] May [facility] Comm Plan of [id number] Wednesday, May 30, 2012 History of Encounters Visit Date Visit Type Provider 08/15/2017 Office visit Heena Dumont MD 07/18/2017 Office visit Heena Dumont MD 06/28/2017 Office visit 06/28/2017 Office visit Lena El FURNACE LOADER 06/24/2017 Office visit Sundeep Russell FURNACE LOADER 06/02/2017 Office visit Heena Dumont MD 04/20/2017 Office visit 04/20/2017 Office visit 04/20/2017 Office visit 04/20/2017 Office visit Heena Dumont MD 03/22/2017 Office visit Heena Dumont MD 03/05/2017 Office visit Lena Chaves FURNACE LOADER 02/23/2017 Office visit Symone Marie FURNACE LOADER 02/21/2017 Office visit Heena Dumont MD 02/15/2017 Office visit Heean Dumont MD 02/02/2017 Office visit Heena Dumont MD 01/07/2017 Office visit Riccardo Cardoza MD 01/03/2017 Office visit Heena Dumont MD 12/15/2016 Office visit Kaylynn Mendez FURNACE LOADER 12/02/2016 Office visit Heena Dumont MD 11/23/2016 [facility] Eliseo Hoskins MD 11/23/2016 Office visit Kaylynn Mendez FURNACE LOADER 11/17/2016 Office visit Kaylynn Mendez FURNACE LOADER 11/05/2016 Office visit Riccardo Cardoza MD 11/02/2016 Office visit Heena Dumont MD 10/06/2016 Office visit Kaylynn Mendez FURNACE LOADER 09/22/2016 Office visit Heena Dumont MD 09/09/2016 Office visit Kaylynn Mendez FURNACE LOADER 08/27/2016 Office visit Riccardo Cardoza MD 08/26/2016 Office visit Heena Dumont MD 07/09/2016 Office visit Riccardo Cardoza MD 07/06/2016 Office visit Heena Dumont MD 06/18/2016 Office visit Kaylynn Mendez FURNACE LOADER 06/07/2016 Office visit Sundeep Russell FURNACE LOADER 06/04/2016 Office visit Heena Dumont MD 05/13/2016 Office visit Heena Dumont MD 05/03/2016 Office visit Heena Dumont MD 04/26/2016 Office visit Kaylynn Mendze FURNACE LOADER 04/14/2016 Office visit Heena Dumont MD 04/13/2016 Office visit Kaylynn Mendez FURNACE LOADER 04/02/2016 Office visit Lena El FURNACE LOADER 04/02/2016 Office visit Heena Dumont MD 03/26/2016 Office visit Yesica Falcon FURNACE LOADER 03/17/2016 Office visit Heena Dumont MD 03/05/2016 Office visit Kaylynn Mendez FURNACE LOADER 02/16/2016 Office visit Heena Dumont MD 02/14/2016 Office visit Na Jones FURNACE LOADER 01/16/2016 Office visit Heena Dumont MD 12/16/2015 Office visit Heena Dumont MD 11/24/2015 Office visit Kaylynn Mendez FURNACE LOADER 11/18/2015 Office visit Heena Dumont MD 11/03/2015 Office visit Sundeep Russell FURNACE LOADER 10/20/2015 Office visit Kaylynn Mendez FURNACE LOADER 09/23/2015 Office visit Kaylynn Mendez FURNACE LOADER 09/16/[address] Pepe Figueroa MD 09/02/2015 Office visit Kaylynn Mendez FURNACE LOADER 09/01/2015 Office visit Kaylynn Mendez FURNACE LOADER 07/30/2015 Office visit Heena Dumont MD 07/15/2015 Office visit Kaylynn Mendez FURNACE LOADER 07/04/2015 Office visit Heena Dumont MD 06/06/2015 Office visit Heena Dumont MD 06/06/2015 Office visit Kaylynn Mendez FURNACE LOADER 06/02/2015 Office visit Kaylynn Walker FURNACE LOADER 05/26/2015 Office visit Kaylynn Walker FURNACE LOADER 05/20/2015 Office visit Kaylynn Walker FURNACE LOADER 05/08/2015 Office visit Heena Dumont MD 05/06/2015 Office visit Kaylynn Mendez FURNACE LOADER 04/29/2015 Office visit Kaylynn Mendez FURNACE LOADER 03/27/2015 Voided Brittni Yanez FURNACE LOADER 03/21/2015 Office visit Heena Dumont MD 03/12/2015 Office visit Kaylynn Mendez FURNACE LOADER 02/26/2015 Office visit Brittni Yanez FURNACE LOADER 02/13/2015 Office visit Heena Dumont MD 01/15/2015 Office visit Brittni Yanez FURNACE LOADER 01/13/2015 Office visit Heena Dumont MD 01/08/[address] Carol Fowler MD 01/01/2015 Office visit Brittni Yanez FURNACE LOADER 12/13/2014 Office visit Heena Dumont MD 11/27/2014 Office visit Kaylynn Mendez FURNACE LOADER 11/14/2014 Office visit Heena Dumont MD 10/18/2014 Office visit Heena Dumont MD 10/17/2014 Hospital Eliseo Hoskins MD 10/09/2014 Office visit Heena Dumont MD 09/25/2014 Office visit Heena Dumont MD 09/17/2014 Office visit Kaylynn Mendez FURNACE LOADER 09/04/2014 Office visit Heena Dumont MD 08/28/2014 Office visit Kaylynn Mendez FURNACE LOADER 08/23/2014 Hospital John Hoskins MD 08/01/2014 Office visit Kaylynn Mendez FURNACE LOADER 07/29/2014 Office visit Heena Dumont MD 07/25/2014 Nurse visit Heena Dumont MD 07/17/2014 Office visit Kaylynn Mendez FURNACE LOADER 07/11/2014 Office visit Heena Dumont MD 07/01/2014 Office visit Heena Dumont MD 06/25/2014 Office visit Kaylynn Mendez FURNACE LOADER 06/12/2014 Office visit Kaylynn Mendez FURNACE LOADER 06/06/2014 Office visit Kaylynn Mendez FURNACE LOADER 05/27/2014 Office visit Heena Dumont MD 04/20/2014 Office visit Yesica Falcno FURNACE LOADER 03/29/2014 Office visit Na Jones FURNACE LOADER 03/15/2014 Office visit Heena Dumont MD 2014 Office visit Heena Dumont MD 2014 [facility] John Hoskins MD 02/27/2014 Nurse visit Heena Dumont MD 02/13/2014 Office visit Lena El FURNACE LOADER 02/07/2014 Office visit Heena Dumont MD 02/03/2014 Office visit Na Jones FURNACE LOADER 01/30/2014 Office visit Kaylynn Mendez FURNACE LOADER 01/24/2014 Office visit Sundeep Russell FURNACE LOADER 01/16/2014 Office visit Kaylynn Mendez FURNACE LOADER 01/10/2014 Nurse visit Kaylynn Mendez FURNACE LOADER 01/08/2014 Office visit Kaylynn Mendez FURNACE LOADER 12/05/2013 Office visit Kaylynn Walker FURNACE LOADER 11/21/2013 Office visit Kaylynn Walker FURNACE LOADER 10/23/2013 Office visit Brittni Yanez FURNACE LOADER 10/17/2013 Nurse visit Heena Dumont MD 10/12/2013 Office visit Kaylynn Walker FURNACE LOADER 10/02/2013 Office visit Heena Dumont MD 09/20/2013 Nurse visit Kaylynn Mendez FURNACE LOADER 09/20/2013 Voided Heena Dumont MD 09/14/2013 Office visit Kaylynn Mendez FURNACE LOADER 09/05/2013 Office visit Sundeep Russell FURNACE LOADER 09/04/2013 Nurse visit Kaylynn Mendez FURNACE LOADER 08/31/2013 Office visit Kaylynn Mendez FURNACE LOADER 08/23/2013 Office visit Heena Dumont MD 08/10/2013 Office visit Kaylynn Mendez FURNACE LOADER 07/25/2013 Office visit Kaylynn Walker FURNACE LOADER 07/18/2013 Office visit Kaylynn Walker FURNACE LOADER 07/12/2013 Office visit Kaylynn Walker FURNACE LOADER 06/28/2013 Nurse visit Kaylynn Walker FURNACE LOADER 06/14/2013 Nurse visit Kaylynn Mendez FURNACE LOADER 06/08/2013 Nurse visit Kaylynn Walker FURNACE LOADER 05/31/2013 Nurse visit Chadd Norris DO 05/18/2013 Office visit Terese Davidson MD 05/16/2013 Office visit Kaylynn Mendez FURNACE LOADER 05/09/2013 Office visit Kaylynn Mendez FURNACE LOADER 04/29/2013 [facility] John Hoskins MD 04/25/2013 Nurse visit Kaylynn Walker FURNACE LOADER 04/17/2013 Office visit Kaylynn Walker FURNACE LOADER 04/03/2013 Nurse visit Kaylynn Mendez FURNACE LOADER 04/03/2013 Office visit Terese Davidson MD 03/28/2013 Office visit Sundeep Russell FURNACE LOADER 03/21/2013 Office visit Kaylynn Mendez FURNACE LOADER 03/20/2013 Office visit Terese Davidson MD 03/14/2013 Nurse visit Kaylynn Mendez FURNACE LOADER 03/05/2013 Nurse visit Kaylynn Walker FURNACE LOADER 02/19/2013 Office visit Terese Davidson MD 02/16/2013 Nurse visit Kaylynn Andrea FURNACE LOADER 02/09/2013 Office visit Sundeep Russell FURNACE LOADER 02/08/2013 Nurse visit Kaylynn Walker FURNACE LOADER 02/01/2013 Nurse visit Kaylynn Walker FURNACE LOADER 01/26/2013 Nurse visit Sabrina Andrea SKYLIGHTS ASSEMBLER 01/25/2013 Office visit Kaylynn Andrea FURNACE LOADER 01/22/2013 Office visit Yoan Castaneda MD 01/18/2013 Nurse visit Kaylynn Walker FURNACE LOADER 01/11/2013 Nurse visit Kaylynn Walker FURNACE LOADER 01/05/2013 Nurse visit Kaylynn Walker FURNACE LOADER 12/29/2012 Office visit Kaylynn Andrea FURNACE LOADER 11/27/2012 Office visit Kaylynn Mendez FURNACE LOADER 11/08/2012 Office visit Odell Tierney MD 11/08/2012 Voided Odell Tierney MD 11/07/2012 Office visit Kaylynn Mendez FURNACE LOADER 10/31/2012 [facility] John Hoskins MD 10/31/2012 Office visit Kaylynn Mendez FURNACE LOADER 10/19/2012 Office visit Genoveva Ayala FURNACE LOADER 10/10/2012 Office visit Kaylynn Mendez FURNACE LOADER 10/03/2012 Office visit Kaylynn Mendez FURNACE LOADER 09/26/2012 Office visit Kaylynn Mendez FURNACE LOADER 09/06/2012 Office visit Kaylynn Mendez FURNACE LOADER 09/06/2012 Office visit Odell Tierney MD 08/31/2012 Voided Kaylynn Mendez FURNACE LOADER 07/28/2012 Office visit Kaylynn Mendez FURNACE LOADER 07/27/2012 Office visit David Joyner DO 07/20/2012 [facility] David Joyner DO 07/13/2012 [facility] David tom DO 07/11/2012 Office visit Kaylynn Mendez FURNACE LOADER 06/27/2012 [facility] Odell Tierney MD 06/21/2012 Office visit David Joyner DO 06/21/2012 Office visit Odell Tierney MD 06/20/2012 Office visit Brittni Yanez FURNACE LOADER 06/06/2012 Office visit Odell Tierney MD 05/03/2012 Office visit Kaylynn Mendez FURNACE LOADER 04/28/2012 Office visit Brittni Yanez FURNACE LOADER 04/11/2012 Office visit Kaylynn Mendez FURNACE LOADER 04/06/2012 [facility] John Hoskins MD 03/30/2012 Office visit Kaylynn Mendez FURNACE LOADER 03/15/2012 Office visit Kaylynn Mendez FURNACE LOADER 03/15/2012 Office visit Odell Tierney MD 02/09/2012 Office visit Kaylynn Mendez FURNACE LOADER 12/23/2011 Office visit Kaylynn Mendez FURNACE LOADER 11/02/2011 Office visit Kaylynn Mendez FURNACE LOADER 10/14/2011 Office visit Kaylynn Mendez FURNACE LOADER 09/27/2011 Office visit Kaylynn Mendez FURNACE LOADER 08/19/2011 [facility] John Hoskins MD 08/18/2011 [facility] John Hoskins MD 08/18/2011 Office visit Kaylynn Mendez FURNACE LOADER 08/02/2011 Office visit Kaylynn Mendez FURNACE LOADER 07/08/2011 Office visit Kaylynn Mendez FURNACE LOADER 07/05/2011 Office visit Odell Tierney MD 06/15/2011 Office visit Kaylynn Mendez FURNACE LOADER 05/14/2011 Office visit Kaylynn Andrea FURNACE LOADER 05/11/2011 Office visit Odell Tierney MD 04/28/2011 Office visit Kaylynn Mendez FURNACE LOADER 03/02/2011 Office visit Chadd Norris DO 02/17/2011 [...]
--- OUTSIDE RECORDS SUMMARY | 2018-05-09 23:33 | XMS REPORT ---
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 zysmwyos-zqaccjqzh-EE 3.5-10,000-1 mg/mL-unit/mL-% otic drops,suspension 201607/23/2016 instill 4 [...] Reviewed 04/28/2011 12:00 AM Decadron 1 mg NDC#[id number] (Jr) Reviewed 04/28/2011 12:00 AM Depo-Medrol 80 mg NDC#[id number]-Vophkhsc Reviewed 09/02/2015 12:00 AM Toradol 60 Mg NDC#8231-4800-39 Reviewed 09/02/2015 12:00 AM Phenergan, Up to 50 Mg R[facility] Medicaid Reviewed 09/16/2015 12:00 AM Toradol 60 Mg NDC#9952-3460-87 Reviewed 09/16/2015 12:00 AM Phenergan Up to 50 mg [facility] Medicare Reviewed 05/11/2011 12:00 AM N BLOCK INJ OCCIPITAL Reviewed 05/11/2011 12:00 AM Kenalog Wt-[address]-20 ANNA Reviewed 11/13/2015 12:00 AM ASSAY OF [...] 12:00 AM Toradol,15mg [facility]#[id number], [place] Reviewed 07/08/2011 12:00 AM Phenergan 50 Mg Im [facility] 7162-4448-12 [place] Reviewed 01/21/2016 12:00 AM ECG MONIT/REPRT UP TO 48 HRS Returned 08/02/2011 12:00 AM THER/PROPH/DIAG INJ SC/IM Reviewed 08/02/2011 12:00 AM Decadron 1 mg [facility]#[id number] (Jr) Reviewed 08/02/2011 12:00 AM Depo-Medrol 80 mg [facility]#[id number]-Hkmkwgeo Reviewed 03/05/2016 12:00 AM COMPLETE CBC W/AUTO DIFF WBC Reviewed 03/05/2016 12:00 AM STREP A ASSAY W/OPTIC Reviewed 03/05/2016 12:00 AM C-REACTIVE PROTEIN Reviewed 03/18/2016 12:00 AM [employer] [facility] MEDICARE - flu vaccine administration Reviewed [...] Depo-Medrol 80 mg [facility]#[id number]-Gtxreigk Reviewed 09/27/2011 12:00 AM Depo-Medrol 40 mg [facility]#[id number] Reviewed 07/06/2016 12:00 AM CHEST X-RAY 4/> [...] Reviewed 12/23/2011 12:00 AM Decadron 1 mg NDC#[id number] (Jr) Reviewed 12/23/2011 12:00 AM Depo-Medrol 80 mg N[facility]#[id number]-Vqofdurb Reviewed 11/02/2016 11:45 AM URINALYSIS AUTO W/O [...] Reviewed 02/09/2012 12:00 AM Decadron 1 mg NDC#88530790053 (Jr) Reviewed 02/09/2012 12:00 AM Depo-Medrol 80 mg NDC#99870049798-Okmryxlx Reviewed 03/15/2012 12:00 AM N BLOCK INJ OCCIPITAL Reviewed 03/15/2012 12:00 AM Kenalog Im-[address]-20 ANNA Reviewed 04/11/2012 12:00 AM COMPLETE CBC W/AUTO DIFF WBC Reviewed 04/11/2012 12:00 AM COMPREHEN METABOLIC PANEL Reviewed 04/11/2012 12:00 AM LIPID PANEL Reviewed 04/11/2012 12:00 AM ASSAY THYROID STIM HORMONE Reviewed 04/11/2012 12:00 AM DESTRUCT PREMALG LES 2-14 Reviewed 06/20/2012 12:00 AM THER/PROPH/DIAG INJ SC/IM Reviewed 06/20/2012 12:00 AM Decadron, Per 1 Mg [facility]# [address]-33 Reviewed 06/20/2012 12:00 AM Depo-Medrol, Per 80 Mg ND#8726-2937-37 Reviewed 09/06/2012 12:00 AM N BLOCK INJ OCCIPITAL Reviewed 09/06/2012 12:00 AM Kenalog Sn-[address]-20 ANNA Reviewed 09/06/2012 12:00 AM X-RAY EXAM RIBS UNI 2 VIEWS Reviewed 09/26/2012 12:00 AM THER/PROPH/DIAG INJ SC/IM Reviewed 09/26/2012 12:00 AM Decadron, Per 1 Mg [facility]# [address]-58 Reviewed 09/26/2012 12:00 AM Depo-Medrol, Per 80 Mg [facility]#7558-7311-39 Reviewed 10/03/2012 12:00 AM URINALYSIS AUTO W/O SCOPE Reviewed 10/03/2012 12:00 AM THER/PROPH/DIAG INJ SC/IM Reviewed 10/03/2012 12:00 AM Toradol 60 Mg ND#5552-0400-34 Reviewed 10/03/2012 12:00 AM Phenergan, 25Mg ND#4241-3287-10 Reviewed 10/19/2012 12:00 AM N BLOCK INJ OCCIPITAL Reviewed 10/19/2012 12:00 AM Kenalog, Per 10 Mg ND#3807-5039-83 Reviewed 10/19/2012 12:00 AM Toradol 30 Mg [facility]#7100-1046-69 Reviewed 10/19/2012 12:00 AM THER/PROPH/DIAG INJ SC/IM Reviewed 10/31/2012 12:00 AM COMPLETE CBC W/AUTO DIFF WBC Reviewed 10/31/2012 12:00 AM COMPREHEN METABOLIC PANEL Reviewed 10/31/2012 12:00 AM LIPID PANEL Reviewed 10/31/2012 12:00 AM ELECTROCARDIOGRAM COMPLETE Reviewed 11/03/2012 12:[address] THORAX W/O & W/DYE Reviewed 11/08/2012 12:00 AM N BLOCK INJ OCCIPITAL Reviewed 11/08/2012 12:[address]-[address]-20 ANNA Reviewed 11/27/2012 12:00 AM COMPLETE CBC [...] Per 1 Mg [facility]# [address]-50 Reviewed 01/25/2013 12:00 AM Depo-Medrol, Per 80 Mg [facility]#1015-9075-91 Reviewed 01/26/2013 12:00 AM IMMUNOTHERAPY ONE INJECTION [...] Per 1 Mg [facility]# [address]-29 Reviewed 05/16/2013 12:00 AM Depo-Medrol, Per 80 Mg [facility]#8530-7738-35 Reviewed 05/31/2013 12:00 AM IMMUNOTHERAPY INJECTIONS Reviewed 06/08/2013 12:00 AM IMMUNOTHERAPY INJECTIONS Reviewed 06/14/2013 12:00 AM IMMUNOTHERAPY INJECTIONS Reviewed 06/28/2013 12:00 AM IMMUNOTHERAPY INJECTIONS Reviewed 07/12/2013 12:00 AM X-RAY EXAM RIBS UNI 2 VIEWS Reviewed 07/18/2013 12:00 AM Toradol 60 Mg [facility]#3801-3163-76 Reviewed 07/18/2013 12:00 AM THER/PROPH/DIAG INJ SC/IM Reviewed 08/23/2013 12:00 AM COMPLETE CBC W/AUTO DIFF WBC Reviewed 08/23/2013 12:00 AM COMPREHEN METABOLIC PANEL Reviewed 08/23/2013 12:00 AM LIPID PANEL Reviewed 08/31/2013 12:00 AM X-RAY EXAM OF LOWER LEG Reviewed 09/04/2013 12:00 AM IMMUNOTHERAPY INJECTIONS Reviewed 09/14/2013 12:00 AM THER/PROPH/DIAG INJ SC/IM Reviewed 09/14/2013 12:00 AM Decadron, Per 1 Mg [facility]# [address]-27 Reviewed 09/14/2013 12:00 AM Depo-Medrol, Per 80 Mg [facility]#6680-2275-01 Reviewed 09/20/2013 12:00 AM IMMUNOTHERAPY INJECTIONS Reviewed [...] INJ OCCIPITAL Reviewed 12/10/2009 12:00 AM Kenalog Ed-[address]-20 ANNA Reviewed 12/16/2009 12:00 AM HIV-1ANTIBODY Reviewed 12/16/2009 12:00 AM COMPLETE CBC W/AUTO DIFF WBC Reviewed 12/16/2009 12:00 AM METABOLIC PANEL TOTAL CA Reviewed 12/16/2009 12:00 AM Type and screen Reviewed 12/16/2009 12:00 AM PROTHROMBIN TIME Reviewed 12/16/2009 12:00 AM THROMBOPLASTIN TIME PARTIAL Reviewed 03/18/2010 12:00 AM DRAIN/INJ JOINT/BURSA W/O US Reviewed 03/18/2010 12:00 AM Kenalog Ek-[address]-20 ANNA Reviewed 11/21/2013 12:00 AM RADEX HAND MINIMUM 3 VIEWS Reviewed 06/03/2010 12:00 AM INJ TRIGGER POINT 1/2 MUSCL Reviewed 06/03/2010 12:00 AM Kenalog per 10Mg [facility]#[address]-63(Niall) Reviewed 12/05/2013 12:00 AM COMPLETE CBC W/AUTO [...] 12:00 AM Kenalog per 10Mg Im-[facility]#[address]-20(Niall) Reviewed 2014 12:00 AM COMPLETE CBC W/AUTO [...] INJ OCCIPITAL Reviewed 10/01/2010 12:00 AM Kenalog Ma-[address]-20 ANNA Reviewed 07/25/2014 12:00 AM THER/PROPH/DIAG INJ [...] 141 Influenza 04/24/2014 sanofi pasteur PMC Fluzone [id number] Intramuscular Left Upper Arm 02/27/2014 01/15/2014 141 Influenza 02/13/2015 sanofi pasteur PMC Fluzone [id number] Intramuscular Left Deltoid 02/13/2015 01/03/2015 140 Tdap 06/06/2015 [employer] SKB BOOSTRIX [id number] Intramuscular Left Deltoid 06/06/2015 07/23/2014 115 Influenza 03/18/2016 sanofi pasteur PMC Fluzone [id number] Intramuscular Left Deltoid 03/17/2016 01/03/2015 141 History [...] cervical region b 2016 3:25PM Cervicalgia Feb 2016 3:25PM Osteoporosis b 2016 10:32AM Lumbago Aug 09 2016 8:51AM [...] Number Policy Group Number Start Date Medicare [facility] Medicare RH [id number] N/A [facility] Comm [id number] N/A Medicare Part A Medicare - Lab/Xray [id number] N/A Medicare Part B Medicare Of [place] [id number] Monday, February 28, 2000 [place] [facility] [place] [facility] [place] [id number] Tuesday, November 10, 2009 Medicare Part A Medicare Part A [id number] N/A [place] [employer] Prog - RHC [facility] Asst Prog - RHC [id number] May [facility] [place] [facility] Plan of [id number] Wednesday, May 30, 2012 History of Encounters Visit Date Visit Type Provider 01/03/2017 Office visit Heena Dumont MD 12/15/2016 Office visit Kaylynn Mendez BLOCK HANDLER 12/02/2016 Office visit Heena Dumont MD 11/23/2016 Office visit Kaylynn Mendez BLOCK HANDLER 11/17/2016 Office visit Kaylynn Mendez BLOCK HANDLER 11/05/2016 Office visit Riccardo Cardoza MD 11/02/2016 Office visit Heena Dumont MD 10/06/2016 Office visit Kaylynn Mendez BLOCK HANDLER 09/22/2016 Office visit Heena Dumont MD 09/09/2016 Office visit Kaylynn Mendez BLOCK HANDLER 08/27/2016 Office visit Riccardo Cardoza MD 08/26/2016 Office visit Heena Dumont MD 07/09/2016 Office visit Riccardo Cardoza MD 07/06/2016 Office visit Heena Dumont MD 06/18/2016 Office visit Kaylynn Mendez BLOCK HANDLER 06/07/2016 Office visit Sundeep Russell BLOCK HANDLER 06/04/2016 Office visit Heena Dumont MD 05/13/2016 Office visit Heena Dumont MD 05/03/2016 Office visit Heena Dumont MD 04/26/2016 Office visit Kaylynn Mendez BLOCK HANDLER 04/14/2016 Office visit Heena Dumont MD 04/13/2016 Office visit Kaylynn Mendez BLOCK HANDLER 04/02/2016 Office visit Lena El BLOCK HANDLER 04/02/2016 Office visit Heena Dumont MD 03/26/2016 Office visit Yesica Falcon BLOCK HANDLER 03/17/2016 Office visit Heena Dumont MD 03/05/2016 Office visit Kaylynn Mendez BLOCK HANDLER 02/16/2016 Office visit Heena Dumont MD 02/14/2016 Office visit Na Jones BLOCK HANDLER 01/16/2016 Office visit Heena Dumont MD 12/16/2015 Office visit Heena Dumont MD 11/24/2015 Office visit Kaylynn Mendez BLOCK HANDLER 11/18/2015 Office visit Heena Dumont MD 11/03/2015 Office visit Sundeep Russell BLOCK HANDLER 10/20/2015 Office visit Kaylynn Walker BLOCK HANDLER 09/23/2015 Office visit Kaylynn Walker BLOCK HANDLER 09/16/[address] Pepe Figueroa MD 09/02/2015 Office visit Kaylynn Walker BLOCK HANDLER 09/01/2015 Office visit Kaylynn Walker BLOCK HANDLER 07/30/2015 Office visit Heena Dumont MD 07/15/2015 Office visit Kaylynn Walker BLOCK HANDLER 07/04/2015 Office visit Heena Dumont MD 06/06/2015 Office visit Heena Dumont MD 06/06/2015 Office visit Kaylynn Walker BLOCK HANDLER 06/02/2015 Office visit Kaylynn Walker BLOCK HANDLER 05/26/2015 Office visit Kaylynn Walker BLOCK HANDLER 05/20/2015 Office visit Kaylynn Walker BLOCK HANDLER 05/08/2015 Office visit Heena Dumont MD 05/06/2015 Office visit Kaylynn Walker BLOCK HANDLER 04/29/2015 Office visit Kaylynn Walker BLOCK HANDLER 03/27/2015 Voided Brittni Yanez BLOCK HANDLER 03/21/2015 Office visit Heena Dumont MD 03/12/2015 Office visit Kaylynn Mendez BLOCK HANDLER 02/26/2015 Office visit Brittni Yanez BLOCK HANDLER 02/13/2015 Office visit Heena Dumont MD 01/15/2015 Office visit Brittni Yanez BLOCK HANDLER 01/13/2015 Office visit Heena Dumont MD 01/08/[address] Carol Fowler MD 01/01/2015 Office visit Brittni Yanez BLOCK HANDLER 12/13/2014 Office visit Heena Dumont MD 11/27/2014 Office visit Kaylynn Mendez BLOCK HANDLER 11/14/2014 Office visit Heena Dumont MD 10/18/2014 Office visit Heena Dumont MD 10/17/2014 Hospital John Hoskins MD 10/09/2014 Office visit Heena Dumont MD 09/25/2014 Office visit Heena Dumont MD 09/17/2014 Office visit Kayylnn Mendez BLOCK HANDLER 09/04/2014 Office visit Heena Dumont MD 08/28/2014 Office visit Kaylynn Mendez BLOCK HANDLER 08/23/2014 [facility] John Hoskins MD 08/01/2014 Office visit Kaylynn Mendez BLOCK HANDLER 07/29/2014 Office visit Heena Dumont MD 07/25/2014 Nurse visit Heena Dumont MD 07/17/2014 Office visit Kaylynn Mendez BLOCK HANDLER 07/11/2014 Office visit Heena Dumont MD 07/01/2014 Office visit Heena Dumont MD 06/25/2014 Office visit Kaylynn Mendez BLOCK HANDLER 06/12/2014 Office visit Kaylynn Mendez BLOCK HANDLER 06/06/2014 Office visit Kaylynn Mendez BLOCK HANDLER 05/27/2014 Office visit Heena Dumont MD 04/20/2014 Office visit Yesica Falcon BLOCK HANDLER 03/29/2014 Office visit Na Jones BLOCK HANDLER 03/15/2014 Office visit Heena Dumont MD 2014 Office visit Heena Dumont MD 2014 [facility] John Hoskins MD 02/27/2014 Nurse visit Heena Dumont MD 02/13/2014 Office visit Lena El BLOCK HANDLER 02/07/2014 Office visit Heena Dumont MD 02/03/2014 Office visit Na Jones BLOCK HANDLER 01/30/2014 Office visit Kaylynn Mendez BLOCK HANDLER 01/24/2014 Office visit Sundeep Russell BLOCK HANDLER 01/16/2014 Office visit Kaylynn Mendez BLOCK HANDLER 01/10/2014 Nurse visit Kaylynn Mendez BLOCK HANDLER 01/08/2014 Office visit Kaylynn Walker BLOCK HANDLER 12/05/2013 Office visit Kaylynn Walker BLOCK HANDLER 11/21/2013 Office visit Kaylynn Mendez BLOCK HANDLER 10/23/2013 Office visit Brittni Yanez BLOCK HANDLER 10/17/2013 Nurse visit Heena Dumont MD 10/12/2013 Office visit Kaylynn Mendez BLOCK HANDLER 10/02/2013 Office visit Heena Dumont MD 09/20/2013 Nurse visit Kaylynn Mendez BLOCK HANDLER 09/20/2013 Voided Heena Dumont MD 09/14/2013 Office visit Kaylynn Walker BLOCK HANDLER 09/05/2013 Office visit Sundeep Russell BLOCK HANDLER 09/04/2013 Nurse visit Kaylynn Walker BLOCK HANDLER 08/31/2013 Office visit Kaylynn Walker BLOCK HANDLER 08/23/2013 Office visit Heena Dumont MD 08/10/2013 Office visit Kaylynn Walker BLOCK HANDLER 07/25/2013 Office visit Kaylynn Walker BLOCK HANDLER 07/18/2013 Office visit Kaylynn Walker BLOCK HANDLER 07/12/2013 Office visit Kaylynn Walker BLOCK HANDLER 06/28/2013 Nurse visit Kaylynn Walker BLOCK HANDLER 06/14/2013 Nurse visit Kaylynn Walker BLOCK HANDLER 06/08/2013 Nurse visit Kaylynn Walker BLOCK HANDLER 05/31/2013 Nurse visit Chadd Norris DO 05/18/2013 Office visit Terese Davidson MD 05/16/2013 Office visit Kaylynn Walker BLOCK HANDLER 05/09/2013 Office visit Kaylynn Walker BLOCK HANDLER 04/29/2013 [facility] John Hoskins MD 04/25/2013 Nurse visit Kaylynn Walker BLOCK HANDLER 04/17/2013 Office visit Kaylynn Walker BLOCK HANDLER 04/03/2013 Nurse visit Kaylynn Walker BLOCK HANDLER 04/03/2013 Office visit Terese Davidson MD 03/28/2013 Office visit Sundeep Russell BLOCK HANDLER 03/21/2013 Office visit Kaylynn Mendez BLOCK HANDLER 03/20/2013 Office visit Terese Davidson MD 03/14/2013 Nurse visit Kaylynn Walker BLOCK HANDLER 03/05/2013 Nurse visit Kaylynn Walker BLOCK HANDLER 02/19/2013 Office visit Terese Davidson MD 02/16/2013 Nurse visit Kaylynn Walker BLOCK HANDLER 02/09/2013 Office visit Sundeep Russell BLOCK HANDLER 02/08/2013 Nurse visit Kaylynn Walker BLOCK HANDLER 02/01/2013 Nurse visit Kaylynn Walker BLOCK HANDLER 01/26/2013 Nurse visit Sabrina Andrea KIER PLEATER 01/25/2013 Office visit Kaylynn Walker BLOCK HANDLER 01/22/2013 Office visit Yoan Castaneda MD 01/18/2013 Nurse visit Kaylynn Mendez BLOCK HANDLER 01/11/2013 Nurse visit Kaylynn Walker BLOCK HANDLER 01/05/2013 Nurse visit Kaylynn Walker BLOCK HANDLER 12/29/2012 Office visit Kaylynn Walker BLOCK HANDLER 11/27/2012 Office visit Kaylynn Mendez BLOCK HANDLER 11/08/2012 Office visit Odell Tierney MD 11/08/2012 Voided Odell Tierney MD 11/07/2012 Office visit Kaylynn Mendez BLOCK HANDLER 10/31/2012 [facility] John Hoskins MD 10/31/2012 Office visit Kaylynn Mendez BLOCK HANDLER 10/19/2012 Office visit Genoveva Ayala BLOCK HANDLER 10/10/2012 Office visit Kaylynn Mendez BLOCK HANDLER 10/03/2012 Office visit Kaylynn Walker BLOCK HANDLER 09/26/2012 Office visit Kaylynn Walker BLOCK HANDLER 09/06/2012 Office visit Kaylynn Mendez BLOCK HANDLER 09/06/2012 Office visit Odell Tierney MD 08/31/2012 Voided Kaylynn Mendez BLOCK HANDLER 07/28/2012 Office visit Kaylynn Mendez BLOCK HANDLER 07/27/2012 Office visit David Joyner DO 07/20/2012 [facility] David Joyner DO 07/13/2012 [facility] David Joyner DO 07/11/2012 Office visit Kaylynn Mendez BLOCK HANDLER 06/27/2012 [facility] Odell Tierney MD 06/21/2012 Office visit David Joyner DO 06/21/2012 Office visit Odell Tierney MD 06/20/2012 Office visit Brittni Yanez BLOCK HANDLER 06/06/2012 Office visit Odell Tierney MD 05/03/2012 Office visit Kaylynn Mendez BLOCK HANDLER 04/28/2012 Office visit Brittni Yanez BLOCK HANDLER 04/11/2012 Office visit Kaylynn Mendez BLOCK HANDLER 04/06/2012 [facility] John Hoskins MD 03/30/2012 Office visit Kaylynn Mendez BLOCK HANDLER 03/15/2012 Office visit Kaylynn Walker BLOCK HANDLER 03/15/2012 Office visit Odell Tierney MD 02/09/2012 Office visit Kaylynn Walker BLOCK HANDLER 12/23/2011 Office visit Kaylynn Walker BLOCK HANDLER 11/02/2011 Office visit Kaylynn Walker BLOCK HANDLER 10/14/2011 Office visit Kaylynn Walker BLOCK HANDLER 09/27/2011 Office visit Kaylynn Walker BLOCK HANDLER 08/19/2011 Hospital John Hoskins MD 08/18/2011 [facility] John Hoskins MD 08/18/2011 Office visit Kaylynn Mendez BLOCK HANDLER 08/02/2011 Office visit Kaylynn Mendez BLOCK HANDLER 07/08/2011 Office visit Kaylynn Andrea BLOCK HANDLER 07/05/2011 Office visit Odell Tierney MD 06/15/2011 Office visit Kaylynn Mendez BLOCK HANDLER 05/14/2011 Office visit Kaylynn Andrea BLOCK HANDLER 05/11/2011 Office visit Odell Tierney MD 04/28/2011 Office visit Kaylynn Mendez BLOCK HANDLER 03/02/2011 Office visit Chadd Norris DO 02/17/2011 [...]
--- OUTSIDE RECORDS SUMMARY | 2018-05-09 23:41 | XMS REPORT ---
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 Larry Mandel Lancjaxson 33 gauge [facility] [place] [facility] [place] 01/21/2016 use as directed omeprazole 20 mg [...] TAKE 1 TABLET BY MOUTH TWICE DAILY phenazopyridine 100 mg oral tablet take 1 [...] oral route once daily for 4 days Svitlanaien LAMONTE 12.5 mg oral tablet,ext release multiphase 07/24/2012 [...] 08/27/2014 use as directed for 99 days [place] 5-325 mg oral tablet 06/17/2014 06/27/2014 take [...] a day as needed for 30 days fbwnsfev-nqjewffqb-WN 3.5-10,000-1 mg/mL-unit/mL-% otic drops,suspension 201401/08/2015 instill 4 [...] 30 minutes before meals and at bedtime Larry Magaña miscellaneous strip 01/21/2016 07/19/2016 Test [...] Ok for similiar substitution or individual components. vuvuhgep-asthralwz-VF 3.5-10,000-1 mg/mL-unit/mL-% otic drops,suspension 201607/23/2016 instill 4 [...] 3 times per day for 90 days metoprolol succinate 100 mg oral tablet [...] food naproxen 500 mg oral tablet,delayed release (/EC) 12/29/2012 05/18/2013 take 1 tablet by oral [...] to exceed 30 mL in 24 hours Sadion Perles 100 mg oral capsule 04/30/2013 05/18/2013 [...] HC BMI BSA BMI Percentile O2 Sat(%) 11/16/2017 10:12:00 AM 120 mmHg 60 mmHg [...] 04/28/2011 12:00 AM Decadron [address] [facility]#[id number] (Jr) Reviewed 04/28/2011 12:00 AM Depo-Medrol [address] [facility]#[id number]-Sannoclb Reviewed 09/02/2015 12:00 AM Toradol [address] [facility]#2510-0208-34 Reviewed 09/02/2015 12:00 AM Phenergan, Up to 50 Mg RHC Medicaid Reviewed 09/16/2015 12:00 AM Toradol 60 Mg ND#5449-8008-29 Reviewed 09/16/2015 12:00 AM Phenergan Up to 50 mg RHC Medicare Reviewed 05/11/2011 12:00 AM N BLOCK INJ OCCIPITAL Reviewed 05/11/2011 12:00 AM Kenalog Fi-[address]-20 ANNA Reviewed 11/13/2015 12:00 AM ASSAY OF [...] SC/IM Reviewed 07/08/2011 12:00 AM Toradol,15mg [facility]#[id number], [place]il[place] Reviewed 07/08/2011 12:00 AM Phenergan 50 Mg Im [facility] [id number] [facility] Reviewed 01/21/2016 12:00 AM ECG MONIT/REPRT UP TO 48 HRS Returned 08/02/2011 12:00 AM THER/PROPH/DIAG INJ SC/IM Reviewed 08/02/2011 12:00 AM Decadron [address] [facility]#[id number] (Jr) Reviewed 08/02/2011 12:00 AM Depo-Medrol [address] [facility]#[id number]-Lccfeijy Reviewed 03/05/2016 12:00 AM COMPLETE CBC W/AUTO [...] Reviewed 09/27/2011 12:00 AM Depo-Medrol 80 mg NDC#[id number]-Mrbkkkyx Reviewed 09/27/2011 12:00 AM Depo-Medrol 40 mg NDC#[id number] Reviewed 07/06/2016 12:00 AM CHEST X-RAY 4/> [...] Reviewed 12/23/2011 12:00 AM Decadron 1 mg NDC#[id number] (Jr) Reviewed 12/23/2011 12:00 AM Depo-Medrol 80 mg NDC#[id number]-Nltlrexb Reviewed 11/02/2016 11:45 AM URINALYSIS AUTO W/O [...] Reviewed 02/09/2012 12:00 AM Decadron 1 mg ND#[id number] (Jr) Reviewed 02/09/2012 12:00 AM Depo-Medrol 80 mg ND#[id number]-Daboqdup Reviewed 02/21/2017 12:00 AM CULTURE OTHR SPECIMN AEROBIC Returned 02/21/2017 12:00 AM INFLUENZA ASSAY W/OPTIC Returned 02/23/2017 12:00 AM COMPLETE CBC W/AUTO DIFF WBC Reviewed 02/23/2017 12:00 AM X-RAY EXAM OF KNEE 3 Returned 03/15/2012 12:00 AM N BLOCK INJ OCCIPITAL Reviewed 03/15/2012 12:00 AM Kenalog Qn-[address]-20 ANNA Reviewed 04/11/2012 12:00 AM COMPLETE CBC [...] 12:00 AM Decadron, Per 1 Mg NDC# [address]-19 Reviewed 06/20/2012 12:00 AM Depo-Medrol, Per 80 Mg NDC#4221-7468-56 Reviewed 09/06/2017 12:00 AM RADEX FOOT COMPLETE MINIMUM 3 VIEWS Returned 09/06/2017 12:00 AM X-RAY EXAM RIBS UNI 2 VIEWS Returned 08/15/2017 12:00 AM COMPLETE CBC W/AUTO DIFF WBC Returned 08/15/2017 12:00 AM COMPREHEN METABOLIC PANEL Returned 08/15/2017 12:00 AM URINALYSIS AUTO W/SCOPE Returned 11/02/2017 12:00 AM COMPLETE CBC W/AUTO DIFF WBC Reviewed 11/02/2017 12:00 AM METABOLIC PANEL TOTAL CA Reviewed 09/06/2012 12:00 AM N BLOCK INJ OCCIPITAL Reviewed 09/06/2012 12:00 AM Kenalog Cu-[address]-20 ANNA Reviewed 09/06/2012 12:00 AM X-RAY EXAM RIBS UNI 2 VIEWS Reviewed 09/26/2012 12:00 AM THER/PROPH/DIAG INJ SC/IM Reviewed 09/26/2012 12:00 AM Decadron, Per 1 Mg NDC# [address]-64 Reviewed 09/26/2012 12:00 AM Depo-Medrol, Per 80 Mg NDC#4203-8074-33 Reviewed 10/03/2012 12:00 AM URINALYSIS AUTO W/O SCOPE Reviewed 10/03/2012 12:00 AM THER/PROPH/DIAG INJ SC/IM Reviewed 10/03/2012 12:00 AM Toradol [address] [facility]#6935-8399-61 Reviewed 10/03/2012 12:00 AM Phenergan, 25Mg [facility]#7362-6732-81 Reviewed 10/19/2012 12:00 AM N BLOCK INJ OCCIPITAL Reviewed 10/19/2012 12:00 AM Kenalog, Per [address] [facility]#7314-6944-46 Reviewed 10/19/2012 12:00 AM Toradol [address] [facility]#1899-7287-20 Reviewed 10/19/2012 12:00 AM THER/PROPH/DIAG INJ SC/IM Reviewed 10/31/2012 12:00 AM COMPLETE CBC W/AUTO DIFF WBC Reviewed 10/31/2012 12:00 AM COMPREHEN METABOLIC PANEL Reviewed 10/31/2012 12:00 AM LIPID PANEL Reviewed 10/31/2012 12:00 AM ELECTROCARDIOGRAM COMPLETE Reviewed 11/03/2012 12:[address] THORAX W/O & W/DYE Reviewed 11/08/2012 12:00 AM N BLOCK INJ OCCIPITAL Reviewed 11/08/2012 12:00 AM Kenalog Jz-[address]-20 ANNA Reviewed 11/27/2012 12:00 AM COMPLETE CBC [...] AM Decadron, Per [address] [facility]# [address]-47 Reviewed 01/25/2013 12:00 AM Depo-Medrol, Per [address] [facility]#6358-1530-23 Reviewed 01/26/2013 12:00 AM IMMUNOTHERAPY ONE INJECTION [...] AM Decadron, Per [address] [facility]# [address]-97 Reviewed 05/16/2013 12:00 AM Depo-Medrol, Per [address] [facility]#0958-7095-60 Reviewed 05/31/2013 12:00 AM IMMUNOTHERAPY INJECTIONS Reviewed 06/08/2013 12:00 AM IMMUNOTHERAPY INJECTIONS Reviewed 06/14/2013 12:00 AM IMMUNOTHERAPY INJECTIONS Reviewed 06/28/2013 12:00 AM IMMUNOTHERAPY INJECTIONS Reviewed 07/12/2013 12:00 AM X-RAY EXAM RIBS UNI 2 VIEWS Reviewed 07/18/2013 12:00 AM Toradol [address] [facility]#0283-3041-60 Reviewed 07/18/2013 12:00 AM THER/PROPH/DIAG INJ SC/IM Reviewed 08/23/2013 12:00 AM COMPLETE CBC W/AUTO DIFF WBC Reviewed 08/23/2013 12:00 AM COMPREHEN METABOLIC PANEL Reviewed 08/23/2013 12:00 AM LIPID PANEL Reviewed 08/31/2013 12:00 AM X-RAY EXAM OF LOWER LEG Reviewed 09/04/2013 12:00 AM IMMUNOTHERAPY INJECTIONS Reviewed 09/14/2013 12:00 AM THER/PROPH/DIAG INJ SC/IM Reviewed 09/14/2013 12:00 AM Decadron, Per [address] [facility]# [address]-33 Reviewed 09/14/2013 12:00 AM Depo-Medrol, Per [address] [facility]#0495-3188-86 Reviewed 09/20/2013 12:00 AM IMMUNOTHERAPY INJECTIONS Reviewed [...] INJ OCCIPITAL Reviewed 12/10/2009 12:00 AM Kenalog Oa-[address]-20 ANNA Reviewed 12/16/2009 12:00 AM HIV-1ANTIBODY Reviewed 12/16/2009 12:00 AM COMPLETE CBC W/AUTO DIFF WBC Reviewed 12/16/2009 12:00 AM METABOLIC PANEL TOTAL CA Reviewed 12/16/2009 12:00 AM Type and screen Reviewed 12/16/2009 12:00 AM PROTHROMBIN TIME Reviewed 12/16/2009 12:00 AM THROMBOPLASTIN TIME PARTIAL Reviewed 03/18/2010 12:00 AM DRAIN/INJ JOINT/BURSA W/O US Reviewed 03/18/2010 12:00 AM Kenalog Lf-[address]-20 ANNA Reviewed 11/21/2013 12:00 AM RADEX HAND MINIMUM 3 VIEWS Reviewed 06/03/2010 12:00 AM INJ TRIGGER POINT 1/2 MUSCL Reviewed 06/03/2010 12:00 AM Kenalog per 10Mg [facility]#[address]-34(Niall) Reviewed 12/05/2013 12:00 AM COMPLETE CBC W/AUTO [...] 12:00 AM Kenalog per 10Mg [facility]#[address]-70(Niall) Reviewed 2014 12:00 AM COMPLETE CBC W/AUTO [...] INJ OCCIPITAL Reviewed 10/01/2010 12:00 AM Kenalog Zr-[address]-20 ANNA Reviewed 07/25/2014 12:00 AM THER/PROPH/DIAG INJ [...] Quant,IgM <0.80 RMSF , IgG, EIA Negative [facility] Spotted [...] 141 Influenza 04/24/2014 sanofi pasteur PMC FLUZONE [id number] Intramuscular Left Upper Arm 02/27/2014 01/15/2014 141 Influenza 02/13/2015 sanofi pasteur PMC FLUZONE [id number] Intramuscular Left Deltoid 02/13/2015 01/03/2015 140 Tdap 06/06/2015 [employer] SKB BOOSTRIX [id number] Intramuscular Left Deltoid 06/06/2015 07/23/2014 115 Influenza 03/18/2016 sanofi pasteur PMC FLUZONE [id number] Intramuscular Left Deltoid 03/17/2016 01/03/2015 141 History [...] mellitus with hyperglycemia 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 Jun 24 [...] 2017 10:26AM Hemiballismus Nov 16 2017 10:26AM Payers Insurance Name Company Name Plan Name Plan Number Policy Number Policy Group Number Start Date Medicare Part B Medicare [place] [id number] Monday, 2000 [facility] Comm Plan of [id number] Wednesday, 2012 [facility] [facility] RHC Comm [id number] N/A Medicare RHC Medicare RHC [id number] N/A Medicare Part A Medicare - Lab/Xray [id number] N/A [facility] Medical Assistance Prog [id number] Tuesday, November 10, 2009 Medicare Part A Medicare Part A [id number] N/A [place] [employer] - RHC [place] [employer] Prog - RHC [id number] May History of Encounters Visit Date Visit Type Provider 11/16/2017 Office visit Aniket Mayen DO 11/02/2017 Office visit Symone Marie CARBON PAPER MACHINE OPERATOR 10/27/2017 Office visit Kaylynn Mendez CARBON PAPER MACHINE OPERATOR 09/14/2017 Office visit Heena Dumont MD 09/06/2017 Office visit Kaylynn Mendez CARBON PAPER MACHINE OPERATOR 08/15/2017 Office visit Heena Dumont MD 07/18/2017 Office visit Heena Dumont MD 06/28/2017 Office visit 06/28/2017 Office visit Lena El CARBON PAPER MACHINE OPERATOR 06/24/2017 Office visit Sundeep Russell CARBON PAPER MACHINE OPERATOR 06/02/2017 Office visit Heena Dumont MD 04/20/2017 Office visit 04/20/2017 Office visit 04/20/2017 Office visit 04/20/2017 Office visit Heena Dumont MD 03/22/2017 Office visit Heena Dumont MD 03/05/2017 Office visit Lena Chaves CARBON PAPER MACHINE OPERATOR 02/23/2017 Office visit Symone Marie CARBON PAPER MACHINE OPERATOR 02/21/2017 Office visit Heena Dumont MD 02/15/2017 Office visit Heena Dumont MD 02/02/2017 Office visit Heena Dumont MD 01/07/2017 Office visit Riccardo Cardoza MD 01/03/2017 Office visit Heena Dumont MD 12/15/2016 Office visit Kaylynn Mendez CARBON PAPER MACHINE OPERATOR 12/02/2016 Office visit Heena Dumont MD 11/23/2016 [facility] Eliseo Hoskins MD 11/23/2016 Office visit Kaylynn Mendez CARBON PAPER MACHINE OPERATOR 11/17/2016 Office visit Kaylynn Mendez CARBON PAPER MACHINE OPERATOR 11/05/2016 Office visit Riccardo Cardoza MD 11/02/2016 Office visit Heena Dumont MD 10/06/2016 Office visit Kaylynn Mendez CARBON PAPER MACHINE OPERATOR 09/22/2016 Office visit Heena Dumont MD 09/09/2016 Office visit Kaylynn Mendez CARBON PAPER MACHINE OPERATOR 08/27/2016 Office visit Riccardo Cardoza MD 08/26/2016 Office visit Heena Dumont MD 07/09/2016 Office visit Riccardo Cardoza MD 07/06/2016 Office visit Heena Dumont MD 06/18/2016 Office visit Kaylynn Mendez CARBON PAPER MACHINE OPERATOR 06/07/2016 Office visit Sundeep Russell CARBON PAPER MACHINE OPERATOR 06/04/2016 Office visit Heena Dumont MD 05/13/2016 Office visit Heena Dumont MD 05/03/2016 Office visit Heena Dumont MD 04/26/2016 Office visit Kaylynn Mendez CARBON PAPER MACHINE OPERATOR 04/14/2016 Office visit Heena Dumont MD 04/13/2016 Office visit Kaylynn Mendez CARBON PAPER MACHINE OPERATOR 04/02/2016 Office visit Lena El CARBON PAPER MACHINE OPERATOR 04/02/2016 Office visit Heena Dumont MD 03/26/2016 Office visit Yesica Falcon CARBON PAPER MACHINE OPERATOR 03/17/2016 Office visit Heena Dumont MD 03/05/2016 Office visit Kaylynn Mendez CARBON PAPER MACHINE OPERATOR 02/16/2016 Office visit Heena Dumont MD 02/14/2016 Office visit Na Jones CARBON PAPER MACHINE OPERATOR 01/16/2016 Office visit Heena Dumont MD 12/16/2015 Office visit Heena Dumont MD 11/24/2015 Office visit Kaylynn Mendez CARBON PAPER MACHINE OPERATOR 11/18/2015 Office visit Heena Dumont MD 11/03/2015 Office visit Sundeep Russell CARBON PAPER MACHINE OPERATOR 10/20/2015 Office visit Kaylynn Mendez CARBON PAPER MACHINE OPERATOR 09/23/2015 Office visit Kaylynn Mendez CARBON PAPER MACHINE OPERATOR 09/16/[address] Pepe Figueroa MD 09/02/2015 Office visit Kaylynn Mendez CARBON PAPER MACHINE OPERATOR 09/01/2015 Office visit Kaylynn Mendez CARBON PAPER MACHINE OPERATOR 07/30/2015 Office visit Heena Dumont MD 07/15/2015 Office visit Kaylynn Mendez CARBON PAPER MACHINE OPERATOR 07/04/2015 Office visit Heena Dumont MD 06/06/2015 Office visit Heena Dumont MD 06/06/2015 Office visit Kaylynn Mendez CARBON PAPER MACHINE OPERATOR 06/02/2015 Office visit Kaylynn Walker CARBON PAPER MACHINE OPERATOR 05/26/2015 Office visit Kaylynn Walker CARBON PAPER MACHINE OPERATOR 05/20/2015 Office visit Kaylynn Mendez CARBON PAPER MACHINE OPERATOR 05/08/2015 Office visit Heena Dumont MD 05/06/2015 Office visit Kaylynn Mendez CARBON PAPER MACHINE OPERATOR 04/29/2015 Office visit Kaylynn Walker CARBON PAPER MACHINE OPERATOR 03/27/2015 Voided Brittni Yanez CARBON PAPER MACHINE OPERATOR 03/21/2015 Office visit Heena Dumont MD 03/12/2015 Office visit Kaylynn Mendez CARBON PAPER MACHINE OPERATOR 02/26/2015 Office visit Brittni Yanez CARBON PAPER MACHINE OPERATOR 02/13/2015 Office visit Heena Dumont MD 01/15/2015 Office visit Brittni Yanez CARBON PAPER MACHINE OPERATOR 01/13/2015 Office visit eHena Dumont MD 01/08/[address] Carol Fowler MD 01/01/2015 Office visit Brittni Yanez CARBON PAPER MACHINE OPERATOR 12/13/2014 Office visit Heena Dumont MD 11/27/2014 Office visit Kaylynn Mendez CARBON PAPER MACHINE OPERATOR 11/14/2014 Office visit Heena Dumont MD 10/18/2014 Office visit Heena Dumont MD 10/17/2014 [facility] Hoskins MD 10/09/2014 Office visit Heena Dumont MD 09/25/2014 Office visit Heena Dumont MD 09/17/2014 Office visit Kaylynn Mendez CARBON PAPER MACHINE OPERATOR 09/04/2014 Office visit Heena Dumont MD 08/28/2014 Office visit Kaylynn Mendez CARBON PAPER MACHINE OPERATOR 08/23/2014 [facility] Eliseo Hoskins MD 08/01/2014 Office visit Kaylynn Mendez CARBON PAPER MACHINE OPERATOR 07/29/2014 Office visit Heena Dumont MD 07/25/2014 Nurse visit Heena Dumont MD 07/17/2014 Office visit Kaylynn Mendez CARBON PAPER MACHINE OPERATOR 07/11/2014 Office visit Heena Dumont MD 07/01/2014 Office visit Heena Dumont MD 06/25/2014 Office visit Kaylynn Mendez CARBON PAPER MACHINE OPERATOR 06/12/2014 Office visit Kaylynn Mendez CARBON PAPER MACHINE OPERATOR 06/06/2014 Office visit Kaylynn Mendez CARBON PAPER MACHINE OPERATOR 05/27/2014 Office visit Heena Dumont MD 04/20/2014 Office visit Yesica Falcon CARBON PAPER MACHINE OPERATOR 03/29/2014 Office visit Na Jones CARBON PAPER MACHINE OPERATOR 03/15/2014 Office visit Heena Dumont MD 2014 Office visit Heena Dumont MD 2014 [facility] John Hoskins MD 02/27/2014 Nurse visit Heena Dumont MD 02/13/2014 Office visit Lena El CARBON PAPER MACHINE OPERATOR 02/07/2014 Office visit Heena Dumont MD 02/03/2014 Office visit Na Jones CARBON PAPER MACHINE OPERATOR 01/30/2014 Office visit Kaylynn Mendez CARBON PAPER MACHINE OPERATOR 01/24/2014 Office visit Sundeep Russell CARBON PAPER MACHINE OPERATOR 01/16/2014 Office visit Kaylynn Mendez CARBON PAPER MACHINE OPERATOR 01/10/2014 Nurse visit Kaylynn Mendez CARBON PAPER MACHINE OPERATOR 01/08/2014 Office visit Kaylynn Mendez CARBON PAPER MACHINE OPERATOR 12/05/2013 Office visit Kaylynn Mendez CARBON PAPER MACHINE OPERATOR 11/21/2013 Office visit Kaylynn Walker CARBON PAPER MACHINE OPERATOR 10/23/2013 Office visit Brittni Yanez CARBON PAPER MACHINE OPERATOR 10/17/2013 Nurse visit Heena Dumont MD 10/12/2013 Office visit Kaylynn Mendez CARBON PAPER MACHINE OPERATOR 10/02/2013 Office visit Heena Dumont MD 09/20/2013 Nurse visit Kaylynn Mendez CARBON PAPER MACHINE OPERATOR 09/20/2013 Voided Heena Dumont MD 09/14/2013 Office visit Kaylynn Walker CARBON PAPER MACHINE OPERATOR 09/05/2013 Office visit Sundeep Russell CARBON PAPER MACHINE OPERATOR 09/04/2013 Nurse visit Kaylynn Walker CARBON PAPER MACHINE OPERATOR 08/31/2013 Office visit Kaylynn Walker CARBON PAPER MACHINE OPERATOR 08/23/2013 Office visit Heena Dumont MD 08/10/2013 Office visit Kaylynn Walker CARBON PAPER MACHINE OPERATOR 07/25/2013 Office visit Kaylynn Walker CARBON PAPER MACHINE OPERATOR 07/18/2013 Office visit Kaylynn Walker CARBON PAPER MACHINE OPERATOR 07/12/2013 Office visit Kaylynn Walker CARBON PAPER MACHINE OPERATOR 06/28/2013 Nurse visit Kaylynn Walker CARBON PAPER MACHINE OPERATOR 06/14/2013 Nurse visit Kaylynn Walker CARBON PAPER MACHINE OPERATOR 06/08/2013 Nurse visit Kaylynn Walker CARBON PAPER MACHINE OPERATOR 05/31/2013 Nurse visit Chadd Norris DO 05/18/2013 Office visit Terese Davidson MD 05/16/2013 Office visit Kaylynn Mendez CARBON PAPER MACHINE OPERATOR 05/09/2013 Office visit Kaylynn Mendez CARBON PAPER MACHINE OPERATOR 04/29/2013 [facility] Eliseo Hoskins MD 04/25/2013 Nurse visit Kaylynn Walker CARBON PAPER MACHINE OPERATOR 04/17/2013 Office visit Kaylynn Walker CARBON PAPER MACHINE OPERATOR 04/03/2013 Nurse visit Kaylynn Mendez CARBON PAPER MACHINE OPERATOR 04/03/2013 Office visit Terese Davidson MD 03/28/2013 Office visit Sundeep Russell CARBON PAPER MACHINE OPERATOR 03/21/2013 Office visit Kaylynn Mendez CARBON PAPER MACHINE OPERATOR 03/20/2013 Office visit Terese Davidson MD 03/14/2013 Nurse visit Kaylynn Mendez CARBON PAPER MACHINE OPERATOR 03/05/2013 Nurse visit Kaylynn Mendez CARBON PAPER MACHINE OPERATOR 02/19/2013 Office visit Terese Davidson MD 02/16/2013 Nurse visit Kaylynn Mendez CARBON PAPER MACHINE OPERATOR 02/09/2013 Office visit Sundeep Russell CARBON PAPER MACHINE OPERATOR 02/08/2013 Nurse visit Kaylynn Walker CARBON PAPER MACHINE OPERATOR 02/01/2013 Nurse visit Kaylynn Walker CARBON PAPER MACHINE OPERATOR 01/26/2013 Nurse visit Sabrina Mendez BED AND BREAKFAST INNKEEPER 01/25/2013 Office visit Kaylynn Mendez CARBON PAPER MACHINE OPERATOR 01/22/2013 Office visit Yoan Castaneda MD 01/18/2013 Nurse visit Kaylynn Walker CARBON PAPER MACHINE OPERATOR 01/11/2013 Nurse visit Kaylynn Walker CARBON PAPER MACHINE OPERATOR 01/05/2013 Nurse visit Kaylynn Walker CARBON PAPER MACHINE OPERATOR 12/29/2012 Office visit Kaylynn Walker CARBON PAPER MACHINE OPERATOR 11/27/2012 Office visit Kaylynn Andrea CARBON PAPER MACHINE OPERATOR 11/08/2012 Office visit Odell Tierney MD 11/08/2012 Voided Odell Tierney MD 11/07/2012 Office visit Kaylynn Mendez CARBON PAPER MACHINE OPERATOR 10/31/2012 [facility] John Hoskins MD 10/31/2012 Office visit Kaylynn Walker CARBON PAPER MACHINE OPERATOR 10/19/2012 Office visit Genoveva Ayala CARBON PAPER MACHINE OPERATOR 10/10/2012 Office visit Kaylynn Walker CARBON PAPER MACHINE OPERATOR 10/03/2012 Office visit Kaylynn Walker CARBON PAPER MACHINE OPERATOR 09/26/2012 Office visit Kaylynn Walker CARBON PAPER MACHINE OPERATOR 09/06/2012 Office visit Kaylynn Walker CARBON PAPER MACHINE OPERATOR 09/06/2012 Office visit Odell Tierney MD 08/31/2012 Voided Kaylynn Mendez CARBON PAPER MACHINE OPERATOR 07/28/2012 Office visit Kaylynn Mendez CARBON PAPER MACHINE OPERATOR 07/27/2012 Office visit David Joyner DO 07/20/2012 [facility] DO 07/13/2012 [facility] DO 07/11/2012 Office visit Kaylynn Mendez CARBON PAPER MACHINE OPERATOR 06/27/2012 [facility] Odell Tierney MD 06/21/2012 Office visit David Joyner DO 06/21/2012 Office visit Odell Tierney MD 06/20/2012 Office visit Brittni Yanez CARBON PAPER MACHINE OPERATOR 06/06/2012 Office visit Odell Tierney MD 05/03/2012 Office visit Kaylynn Mendez CARBON PAPER MACHINE OPERATOR 04/28/2012 Office visit Brittni Yanez CARBON PAPER MACHINE OPERATOR 04/11/2012 Office visit Kaylynn Mendez CARBON PAPER MACHINE OPERATOR 04/06/2012 [facility] John Hoskins MD 03/30/2012 Office visit Kaylynn Mendez CARBON PAPER MACHINE OPERATOR 03/15/2012 Office visit Kaylynn Mendez CARBON PAPER MACHINE OPERATOR 03/15/2012 Office visit Odell Tierney MD 02/09/2012 Office visit Kaylynn Mendez CARBON PAPER MACHINE OPERATOR 12/23/2011 Office visit Kaylynn Mendez CARBON PAPER MACHINE OPERATOR 11/02/2011 Office visit Kaylynn Mendez CARBON PAPER MACHINE OPERATOR 10/14/2011 Office visit Kaylynn Mendez CARBON PAPER MACHINE OPERATOR 09/27/2011 Office visit Kaylynn Mendez CARBON PAPER MACHINE OPERATOR 08/19/2011 [facility] John Hoskins MD 08/18/2011 [facility] John Hoskins MD 08/18/2011 Office visit Kaylynn Mendez CARBON PAPER MACHINE OPERATOR 08/02/2011 Office visit Kaylynn Mendez CARBON PAPER MACHINE OPERATOR 07/08/2011 Office visit Kaylynn Mendez CARBON PAPER MACHINE OPERATOR 07/05/2011 Office visit Odell Tierney MD 06/15/2011 Office visit Kaylynn Mendez CARBON PAPER MACHINE OPERATOR 05/14/2011 Office visit Kaylynn Andrea CARBON PAPER MACHINE OPERATOR 05/11/2011 Office visit Odell Tierney MD 04/28/2011 Office visit Kaylynn Mendez APRN 03/02/2011 Office visit Chadd Norris DO 02/17/2011 [...] Surgery Yoan Castaneda MD 12/16/2009 Surgery Yoan aCstaneda MD 12/10/2009 Office visit Odell Tierney MD 11/26/2009 Office visit Yoan Castaneda MD 11/17/2009 Office visit Odell Tierney MD 11/10/2009 Office visit Chadd Norris DO
--- OUTSIDE RECORDS SUMMARY | 2018-05-09 23:46 | XMS REPORT ---
Author Kaylynn Lyels Organization [facility] Address [address] [place], [place] [id number] Care Team Providers Care Custodial Aide Name Role Phone Kaylynn Mendez PCP Unavailable [...] 08/27/2014 use as directed for 99 days Umbarger 5-325 mg oral tablet 06/17/2014 06/27/2014 take [...] a day as needed for 30 days vrxnfrwz-kexickokb-MQ 3.5-10,000-1 mg/mL-unit/mL-% otic drops,suspension 201401/08/2015 instill 4 [...] Reviewed 04/28/2011 12:00 AM Decadron 1 mg ND#[id number] (Jr) Reviewed 04/28/2011 12:00 AM Depo-Medrol 80 mg NDC#[id number]-Xjnahvoa Reviewed 09/02/2015 12:00 AM Toradol 60 Mg ND#2147-2507-91 Reviewed 09/02/2015 12:00 AM Phenergan, Up to 50 Mg RHC Medicaid Reviewed 05/11/2011 12:00 AM N BLOCK INJ OCCIPITAL Reviewed 05/11/2011 12:00 AM Kenalog Wm-[address]-20 ANNA Reviewed 06/15/2011 12:00 AM COMPLETE CBC W/AUTO DIFF WBC Returned 06/15/2011 12:00 AM COMPREHEN METABOLIC PANEL Returned 07/08/2011 12:00 AM THER/PROPH/DIAG INJ SC/IM Reviewed 07/08/2011 12:00 AM Toradol,15mg ND#[id number], [place] Reviewed 07/08/2011 12:00 AM Phenergan 50 Mg Im Nd 3590-1495-17 [place] Reviewed 08/02/2011 12:00 AM THER/PROPH/DIAG INJ SC/IM Reviewed 08/02/2011 12:00 AM Decadron 1 mg NDC#[id number] (Jr) Reviewed 08/02/2011 12:00 AM Depo-Medrol 80 mg NDC#[id number]-Tyrcpcmf Reviewed 09/27/2011 12:00 AM THER/PROPH/DIAG INJ SC/IM Reviewed 09/27/2011 12:00 AM Depo-Medrol 80 mg NDC#[id number]-Owotvxhj Reviewed 10/14/2011 12:00 AM X-RAY EXAM OF ABDOMEN Returned 10/14/2011 12:00 AM URINALYSIS AUTO W/O SCOPE Reviewed 12/23/2011 12:00 AM THER/PROPH/DIAG INJ SC/IM Reviewed 12/23/2011 12:00 AM Decadron 1 mg NDC#[id number] (Jr) Reviewed 12/23/2011 12:00 AM Depo-Medrol 80 mg NDC#[id number]-Fgcbpaeu Reviewed 02/09/2012 12:00 AM THER/PROPH/DIAG INJ SC/IM Reviewed 02/09/2012 12:00 AM Decadron 1 mg NDC#[id number] (Jr) Reviewed 02/09/2012 12:00 AM Depo-Medrol 80 mg NDC#[id number]-Ytdxijsa Reviewed 03/15/2012 12:00 AM N BLOCK INJ OCCIPITAL Reviewed 03/15/2012 12:00 AM Kenalog Nq-[address]-20 ANNA Reviewed 04/11/2012 12:00 AM COMPLETE CBC W/AUTO DIFF WBC Returned 04/11/2012 12:00 AM COMPREHEN METABOLIC PANEL Returned 04/11/2012 12:00 AM LIPID PANEL Returned 04/11/2012 12:00 AM ASSAY THYROID STIM HORMONE Returned 06/20/2012 12:00 AM THER/PROPH/DIAG INJ SC/IM Reviewed 06/20/2012 12:00 AM Decadron, Per 1 Mg ND# [address]-21 Reviewed 06/20/2012 12:00 AM Depo-Medrol, Per 80 Mg NDC#6369-4235-95 Reviewed 09/06/2012 12:00 AM N BLOCK INJ OCCIPITAL Reviewed 09/06/2012 12:00 AM Kenalog Zs-[address]-20 ANNA Reviewed 09/06/2012 12:00 AM X-RAY EXAM RIBS UNI 2 VIEWS Returned 09/26/2012 12:00 AM THER/PROPH/DIAG INJ SC/IM Reviewed 09/26/2012 12:00 AM Decadron, Per 1 Mg NDC# [address]-89 Reviewed 09/26/2012 12:00 AM Depo-Medrol, Per 80 Mg NDC#2970-2033-55 Reviewed 10/03/2012 12:00 AM URINALYSIS AUTO W/O SCOPE Reviewed 10/03/2012 12:00 AM THER/PROPH/DIAG INJ SC/IM Reviewed 10/03/2012 12:00 AM Toradol 60 Mg [facility]#9122-3293-08 Reviewed 10/03/2012 12:00 AM Phenergan, 25Mg ND#1326-1702-19 Reviewed 10/19/2012 12:00 AM N BLOCK INJ OCCIPITAL Reviewed 10/19/2012 12:00 AM Kenalog, Per 10 Mg ND#8767-9899-92 Reviewed 10/19/2012 12:00 AM Toradol 30 Mg ND#5178-0111-90 Reviewed 10/19/2012 12:00 AM THER/PROPH/DIAG INJ SC/IM Reviewed 10/31/2012 12:00 AM COMPLETE CBC W/AUTO DIFF WBC Returned 10/31/2012 12:00 AM COMPREHEN METABOLIC PANEL Returned 10/31/2012 12:00 AM LIPID PANEL Returned 11/03/2012 12:[address] THORAX W/O & W/DYE Returned 11/08/2012 12:00 AM N BLOCK INJ OCCIPITAL Reviewed 11/08/2012 12:00 AM Kenalog Xw-[address]-20 ANNA Reviewed 11/27/2012 12:00 AM COMPLETE CBC [...] AM Decadron, Per 1 Mg [facility]# [address]-52 Reviewed 01/25/2013 12:00 AM Depo-Medrol, Per 80 Mg [facility]#0486-1714-07 Reviewed 01/26/2013 12:00 AM IMMUNOTHERAPY INJECTIONS Returned [...] AM Decadron, Per 1 Mg [facility]# [address]-52 Reviewed 05/16/2013 12:00 AM Depo-Medrol, Per 80 Mg [facility]#3152-2759-54 Reviewed 05/31/2013 12:00 AM IMMUNOTHERAPY INJECTIONS Reviewed 06/08/2013 12:00 AM IMMUNOTHERAPY INJECTIONS Reviewed 06/14/2013 12:00 AM IMMUNOTHERAPY INJECTIONS Reviewed 06/28/2013 12:00 AM IMMUNOTHERAPY INJECTIONS Reviewed 07/12/2013 12:00 AM X-RAY EXAM RIBS UNI 2 VIEWS Returned 07/18/2013 12:00 AM Toradol 60 Mg [facility]#2387-8039-06 Reviewed 07/18/2013 12:00 AM THER/PROPH/DIAG INJ SC/IM Reviewed 08/23/2013 12:00 AM COMPLETE CBC W/AUTO DIFF WBC Reviewed 08/23/2013 12:00 AM COMPREHEN METABOLIC PANEL Reviewed 08/23/2013 12:00 AM LIPID PANEL Reviewed 08/31/2013 12:00 AM X-RAY EXAM OF LOWER LEG Returned 09/04/2013 12:00 AM IMMUNOTHERAPY INJECTIONS Reviewed 09/14/2013 12:00 AM THER/PROPH/DIAG INJ SC/IM Reviewed 09/14/2013 12:00 AM Decadron, Per 1 Mg [facility]# [address]-88 Reviewed 09/14/2013 12:00 AM Depo-Medrol, Per 80 Mg [facility]#1035-4123-86 Reviewed 09/20/2013 12:00 AM IMMUNOTHERAPY INJECTIONS Reviewed [...] INJ OCCIPITAL Reviewed 12/10/2009 12:00 AM Kenalog Vp-[address]-20 ANNA Reviewed 12/16/2009 12:00 AM HIV-1ANTIBODY Reviewed 12/16/2009 12:00 AM COMPLETE CBC W/AUTO DIFF WBC Reviewed 12/16/2009 12:00 AM METABOLIC PANEL TOTAL CA Reviewed 12/16/2009 12:00 AM Type and screen Reviewed 12/16/2009 12:00 AM PROTHROMBIN TIME Reviewed 12/16/2009 12:00 AM THROMBOPLASTIN TIME PARTIAL Reviewed 03/18/2010 12:00 AM DRAIN/INJ JOINT/BURSA W/O US Reviewed 03/18/2010 12:00 AM Kenalog Iv-[address]-20 ANNA Reviewed 11/21/2013 12:00 AM RADEX HAND MINIMUM 3 VIEWS Returned 06/03/2010 12:00 AM INJ TRIGGER POINT 1/2 MUSCL Reviewed 06/03/2010 12:00 AM Kenalog per 10Mg Im-[facility]#[address]-24(Niall) Reviewed 12/05/2013 12:00 AM COMPLETE CBC W/AUTO [...] Reviewed 07/23/2010 12:00 AM Kenalog per 10Mg [facility]#[address]-79(Niall) Reviewed 2014 12:00 AM COMPLETE CBC W/AUTO [...] INJ OCCIPITAL Reviewed 10/01/2010 12:00 AM Kenalog Ax-[address]-20 ANNA Reviewed 07/25/2014 12:00 AM THER/PROPH/DIAG INJ [...] 0.60 mg/dLCALCIUM 10.90 mg/ dLeGFR >60 mL/min/1.73 [id number] 45.0 U/L 08/31/2013 10:54 AM GLUCOSE 255.0 [...] 0.40 mg/ dLCALCIUM 10.60 mg/dLeGFR >60 mL/min/1.73 [id number] 369.0 mg/ dLCHOLESTEROL 153.0 mg/dLHDL 26.0 mg/dLLDL [...] BILI 0.30 mg/dLCALCIUM 10.0 mg/dLeGFR >60 mL/min/1.73 [id number] YELLOW APPEARANCE CLEAR SPEC GRAV 1.010 pH 5.5 PROTEIN NEGATIVE GLUCOSE NEGATIVE KETONE NEGATIVE BILIRUBIN NEGATIVE BLOOD NEGATIVE NITRITE NEGATIVE LEUK SCREEN NEGATIVE HGB A1C 6.30 %Est Avg Glucose 134.1 mg/dLMICROALBUMIN UR <0.5 MG/DL 02/13/2015 4:38 PM RMSF, IgG, EIA Negative [facility] [...] 141 Influenza 04/24/2014 sanofi pasteur PMC Fluzone [id number] Intramuscular Left Upper Arm 02/27/2014 01/15/2014 141 Influenza 02/13/2015 sanofi pasteur PMC Fluzone [id number] Intramuscular Left Deltoid 02/13/2015 01/03/2015 140 Tdap 06/06/2015 [employer] SKB BOOSTRIX [id number] Intramuscular Left Deltoid 06/06/2015 [...] Chronic back pain Sep 23 2015 2:39PM Payers Insurance Name Company Name Plan Name Plan Number Policy Number Policy Group Number Start Date Medicare Part A Medicare RHC [id number] N/A [facility] - RHC - Community Plan of [facility] RHC Comm [id number] N/A Medicare Part A Medicare - Lab/Xray [id number] N/A Medicare Part B Medicare [facility] [id number] Monday, February 28, 2000 [place] [employer] [place] [id number] Tuesday, November 10, 2009 Medicare Part A Medicare Part A [id number] N/A [place] [employer] - [place] [employer] - [place] [id number] May [facility] Community Plan of [facility] Comm Plan of [id number] Wednesday, May 30, 2012 History of Encounters Visit Date Visit Type Provider 09/23/2015 Office visit aKylynn Mendez QUALITY ASSURANCE PROJECT MANAGER 09/16/[address] Pepe Figueroa MD 09/02/2015 Office visit Kaylynn Mendez QUALITY ASSURANCE PROJECT MANAGER 09/01/2015 Office visit Kaylynn Mendez QUALITY ASSURANCE PROJECT MANAGER 07/30/2015 Office visit Heena Dumont MD 07/15/2015 Office visit Kaylynn Mendez QUALITY ASSURANCE PROJECT MANAGER 07/04/2015 Office visit Heena Dumnot MD 06/06/2015 Office visit Heena Dumont MD 06/06/2015 Office visit Kaylynn Mendez QUALITY ASSURANCE PROJECT MANAGER 06/02/2015 Office visit Kaylynn Mendez QUALITY ASSURANCE PROJECT MANAGER 05/26/2015 Office visit Kaylynn Mendez QUALITY ASSURANCE PROJECT MANAGER 05/20/2015 Office visit Kaylynn Mendez QUALITY ASSURANCE PROJECT MANAGER 05/08/2015 Office visit Heena Dumont MD 05/06/2015 Office visit Kaylynn Mendez QUALITY ASSURANCE PROJECT MANAGER 04/29/2015 Office visit Kaylynn Mendez QUALITY ASSURANCE PROJECT MANAGER 03/27/2015 Voided Brittni Yanez QUALITY ASSURANCE PROJECT MANAGER 03/21/2015 Office visit Heena Dumont MD 03/12/2015 Office visit Kaylynn Mendez QUALITY ASSURANCE PROJECT MANAGER 02/26/2015 Office visit Brittni Yanez QUALITY ASSURANCE PROJECT MANAGER 02/13/2015 Office visit Heena Dumont MD 01/15/2015 Office visit Brittni Yanez QUALITY ASSURANCE PROJECT MANAGER 01/13/2015 Office visit Heena Dumont MD 01/08/[address] Carol Fowler MD 01/01/2015 Office visit Brittni Yanez QUALITY ASSURANCE PROJECT MANAGER 12/13/2014 Office visit Heena Dumont MD 11/27/2014 Office visit Kaylynn Mendez QUALITY ASSURANCE PROJECT MANAGER 11/14/2014 Office visit Heena Dumont MD 10/18/2014 Office visit Heena Dumont MD 10/17/2014 [facility] John Hoskins MD 10/09/2014 Office visit Heena Dumont MD 09/25/2014 Office visit Heena Dumont MD 09/17/2014 Office visit Kaylynn Mendez QUALITY ASSURANCE PROJECT MANAGER 09/04/2014 Office visit Heena Dumont MD 08/28/2014 Office visit Kaylynn Mendez QUALITY ASSURANCE PROJECT MANAGER 08/23/2014 [facility] John Hoskins MD 08/01/2014 Office visit Kaylynn Mendez QUALITY ASSURANCE PROJECT MANAGER 07/29/2014 Office visit Heena Dumont MD 07/25/2014 Nurse visit Heena Dumont MD 07/17/2014 Office visit Kaylynn Mendez QUALITY ASSURANCE PROJECT MANAGER 07/11/2014 Office visit Heena Dumont MD 07/01/2014 Office visit Heena Dumont MD 06/25/2014 Office visit Kaylynn Mendez QUALITY ASSURANCE PROJECT MANAGER 06/12/2014 Office visit Kaylynn Mendez QUALITY ASSURANCE PROJECT MANAGER 06/06/2014 Office visit Kaylynn Mendez QUALITY ASSURANCE PROJECT MANAGER 05/27/2014 Office visit Heena Dumont MD 04/20/2014 Office visit Yesica Falcon QUALITY ASSURANCE PROJECT MANAGER 03/29/2014 Office visit Na Jones QUALITY ASSURANCE PROJECT MANAGER 03/15/2014 Office visit Heena Dumont MD 2014 Office visit Heena Dumont MD 2014 [facility] John Hoskins MD 02/27/2014 Nurse visit Heena Dumont MD 02/13/2014 Office visit Lena El QUALITY ASSURANCE PROJECT MANAGER 02/07/2014 Office visit Heena Dumont MD 02/03/2014 Office visit Na Jones QUALITY ASSURANCE PROJECT MANAGER 01/30/2014 Office visit Kaylynn Mendez QUALITY ASSURANCE PROJECT MANAGER 01/24/2014 Office visit Sundeep Russell QUALITY ASSURANCE PROJECT MANAGER 01/16/2014 Office visit Kaylynn Mendez QUALITY ASSURANCE PROJECT MANAGER 01/10/2014 Nurse visit Kaylynn Mendez QUALITY ASSURANCE PROJECT MANAGER 01/08/2014 Office visit Kaylynn Mendez QUALITY ASSURANCE PROJECT MANAGER 12/05/2013 Office visit Kaylynn Mendez QUALITY ASSURANCE PROJECT MANAGER 11/21/2013 Office visit Kaylynn Mendez QUALITY ASSURANCE PROJECT MANAGER 10/23/2013 Office visit Brittni Yanez QUALITY ASSURANCE PROJECT MANAGER 10/17/2013 Nurse visit Heena Dumont MD 10/12/2013 Office visit Kaylynn Mendez QUALITY ASSURANCE PROJECT MANAGER 10/02/2013 Office visit Heena Dumont MD 09/20/2013 Nurse visit Kaylynn Mendez QUALITY ASSURANCE PROJECT MANAGER 09/20/2013 Voided Heena Dumont MD 09/14/2013 Office visit Kaylynn Walker QUALITY ASSURANCE PROJECT MANAGER 09/05/2013 Office visit Sundeep Russell QUALITY ASSURANCE PROJECT MANAGER 09/04/2013 Nurse visit Kaylynn Walker QUALITY ASSURANCE PROJECT MANAGER 08/31/2013 Office visit Kaylynn Walker QUALITY ASSURANCE PROJECT MANAGER 08/23/2013 Office visit Heena Dumont MD 08/10/2013 Office visit Kaylynn Walker QUALITY ASSURANCE PROJECT MANAGER 07/25/2013 Office visit Kaylynn Walker QUALITY ASSURANCE PROJECT MANAGER 07/18/2013 Office visit Kaylynn Walker QUALITY ASSURANCE PROJECT MANAGER 07/12/2013 Office visit Kaylynn Walker QUALITY ASSURANCE PROJECT MANAGER 06/28/2013 Nurse visit Kyalynn Walker QUALITY ASSURANCE PROJECT MANAGER 06/14/2013 Nurse visit Kaylynn Walker QUALITY ASSURANCE PROJECT MANAGER 06/08/2013 Nurse visit Kaylynn Walker QUALITY ASSURANCE PROJECT MANAGER 05/31/2013 Nurse visit Chadd Norris DO 05/18/2013 Office visit Terese Davidson MD 05/16/2013 Office visit Kaylynn Walker QUALITY ASSURANCE PROJECT MANAGER 05/09/2013 Office visit Kaylynn Mendez QUALITY ASSURANCE PROJECT MANAGER 04/29/2013 [facility] John Hoskins MD 04/25/2013 Nurse visit Kaylynn Walker QUALITY ASSURANCE PROJECT MANAGER 04/17/2013 Office visit Kaylynn Walker QUALITY ASSURANCE PROJECT MANAGER 04/03/2013 Nurse visit Kaylynn Mendez QUALITY ASSURANCE PROJECT MANAGER 04/03/2013 Office visit Terese Davidson MD 03/28/2013 Office visit Sundeep Russell QUALITY ASSURANCE PROJECT MANAGER 03/21/2013 Office visit Kaylynn Mendez QUALITY ASSURANCE PROJECT MANAGER 03/20/2013 Office visit Terese Davidson MD 03/14/2013 Nurse visit Kaylynn Walker QUALITY ASSURANCE PROJECT MANAGER 03/05/2013 Nurse visit Kaylynn Mendez QUALITY ASSURANCE PROJECT MANAGER 02/19/2013 Office visit Terese Davidson MD 02/16/2013 Nurse visit Kaylynn Mendez QUALITY ASSURANCE PROJECT MANAGER 02/09/2013 Office visit Sundeep Russell QUALITY ASSURANCE PROJECT MANAGER 02/08/2013 Nurse visit Kaylynn Walker QUALITY ASSURANCE PROJECT MANAGER 02/01/2013 Nurse visit Kaylynn Walker QUALITY ASSURANCE PROJECT MANAGER 01/26/2013 Nurse visit Sabrina Mendez HARDWOOD FLOOR INSTALLER 01/25/2013 Office visit Kaylynn Walker QUALITY ASSURANCE PROJECT MANAGER 01/22/2013 Office visit Yoan Castaneda MD 01/18/2013 Nurse visit Kaylynn Walker QUALITY ASSURANCE PROJECT MANAGER 01/11/2013 Nurse visit Kaylynn Walker QUALITY ASSURANCE PROJECT MANAGER 01/05/2013 Nurse visit Kaylynn Walker QUALITY ASSURANCE PROJECT MANAGER 12/29/2012 Office visit Kaylynn Walker QUALITY ASSURANCE PROJECT MANAGER 11/27/2012 Office visit Kaylynn Walker QUALITY ASSURANCE PROJECT MANAGER 11/08/2012 Office visit Odell Tierney MD 11/08/2012 Voided Odell Tierney MD 11/07/2012 Office visit Kaylynn Mendez QUALITY ASSURANCE PROJECT MANAGER 10/31/2012 [facility] John Hoskins MD 10/31/2012 Office visit Kaylynn Mendez QUALITY ASSURANCE PROJECT MANAGER 10/19/2012 Office visit Genoveva Ayala QUALITY ASSURANCE PROJECT MANAGER 10/10/2012 Office visit Kaylynn Mendez QUALITY ASSURANCE PROJECT MANAGER 10/03/2012 Office visit Kaylynn Mendez QUALITY ASSURANCE PROJECT MANAGER 09/26/2012 Office visit Kaylynn Walker QUALITY ASSURANCE PROJECT MANAGER 09/06/2012 Office visit Kaylynn Mendez QUALITY ASSURANCE PROJECT MANAGER 09/06/2012 Office visit Odell Tierney MD 08/31/2012 Voided Kaylynn Mendez QUALITY ASSURANCE PROJECT MANAGER 07/28/2012 Office visit Kaylynn Mendez QUALITY ASSURANCE PROJECT MANAGER 07/27/2012 Office visit David Joyner DO 07/20/2012 [facility] David Joyner DO 07/13/2012 [facility] David Joyner DO 07/11/2012 Office visit Kaylynn Mendez QUALITY ASSURANCE PROJECT MANAGER 06/27/2012 [facility] Odell Tierney MD 06/21/2012 Office visit David Joyner DO 06/21/2012 Office visit Odell Tierney MD 06/20/2012 Office visit Brittni Yanez QUALITY ASSURANCE PROJECT MANAGER 06/06/2012 Office visit Odell Tierney MD 05/03/2012 Office visit Kaylynn Mendez QUALITY ASSURANCE PROJECT MANAGER 04/28/2012 Office visit Brittni Yanez QUALITY ASSURANCE PROJECT MANAGER 04/11/2012 Office visit Kaylynn Mendez QUALITY ASSURANCE PROJECT MANAGER 04/06/2012 [facility] John Hoskins MD 03/30/2012 Office visit Kaylynn Mendez QUALITY ASSURANCE PROJECT MANAGER 03/15/2012 Office visit Kaylynn Mendez QUALITY ASSURANCE PROJECT MANAGER 03/15/2012 Office visit Odell Tierney MD 02/09/2012 Office visit Kaylynn Mendez QUALITY ASSURANCE PROJECT MANAGER 12/23/2011 Office visit Kaylynn Mendez QUALITY ASSURANCE PROJECT MANAGER 11/02/2011 Office visit Kaylynn Mendez QUALITY ASSURANCE PROJECT MANAGER 10/14/2011 Office visit Kaylynn Mendez QUALITY ASSURANCE PROJECT MANAGER 09/27/2011 Office visit Kaylynn Mendez QUALITY ASSURANCE PROJECT MANAGER 08/19/2011 [facility] John Hoskins MD 08/18/2011 [facility] John Hoskins MD 08/18/2011 Office visit Kaylynn Mendez QUALITY ASSURANCE PROJECT MANAGER 08/02/2011 Office visit Kaylynn Mendez QUALITY ASSURANCE PROJECT MANAGER 07/08/2011 Office visit Kaylynn Mendez QUALITY ASSURANCE PROJECT MANAGER 07/05/2011 Office visit Odell Tierney MD 06/15/2011 Office visit Kaylynn Mendez QUALITY ASSURANCE PROJECT MANAGER 05/14/2011 Office visit Kaylynn Mendez QUALITY ASSURANCE PROJECT MANAGER 05/11/2011 Office visit Odell Tierney MD 04/28/2011 Office visit Kaylynn Mendez QUALITY ASSURANCE PROJECT MANAGER 03/02/2011 Office visit Chadd Norris [...]
--- OUTSIDE RECORDS SUMMARY | 2018-05-09 23:52 | XMS REPORT ---
Author Kaylynn Lyles Organization [facility] Address [address] [place], [place] [id number] Care Team Providers Care Project Accountant Name Role Phone Kaylynn Mendez PCP Unavailable [...] 08/27/2014 use as directed for 99 days [place] 5-325 mg oral tablet 06/17/2014 06/27/2014 take [...] a day as needed for 30 days gffghflo-nalwhasfl-PT 3.5-10,000-1 mg/mL-unit/mL-% otic drops,suspension 201401/08/2015 instill 4 [...] Reviewed 04/28/2011 12:00 AM Decadron 1 mg ND#[id number] (Jr) Reviewed 04/28/2011 12:00 AM Depo-Medrol 80 mg ND#[id number]-Hidjlhzz Reviewed 05/11/2011 12:00 AM N BLOCK INJ OCCIPITAL Reviewed 05/11/2011 12:00 AM Kenalog Oj-[address]-20 ANNA Reviewed 06/15/2011 12:00 AM COMPLETE CBC W/AUTO DIFF WBC Returned 06/15/2011 12:00 AM COMPREHEN METABOLIC PANEL Returned 07/08/2011 12:00 AM THER/PROPH/DIAG INJ SC/IM Reviewed 07/08/2011 12:00 AM Toradol,15mg NDC#[id number], Adilene Reviewed 07/08/2011 12:00 AM Phenergan 50 Mg Im Nd 6731-9956-64 ALLIE Hoskins Reviewed 08/02/2011 12:00 AM THER/PROPH/DIAG INJ SC/IM Reviewed 08/02/2011 12:00 AM Decadron 1 mg NDC#[id number] (Jr) Reviewed 08/02/2011 12:00 AM Depo-Medrol 80 mg NDC#[id number]-Refaiaez Reviewed 09/27/2011 12:00 AM THER/PROPH/DIAG INJ SC/IM Reviewed 09/27/2011 12:00 AM Depo-Medrol 80 mg NDC#[id number]-Ehhlijpg Reviewed 10/14/2011 12:00 AM X-RAY EXAM OF ABDOMEN Returned 10/14/2011 12:00 AM URINALYSIS AUTO W/O SCOPE Reviewed 12/23/2011 12:00 AM THER/PROPH/DIAG INJ SC/IM Reviewed 12/23/2011 12:00 AM Decadron 1 mg NDC#[id number] (Jr) Reviewed 12/23/2011 12:00 AM Depo-Medrol 80 mg NDC#[id number]-Bsymijdi Reviewed 02/09/2012 12:00 AM THER/PROPH/DIAG INJ SC/IM Reviewed 02/09/2012 12:00 AM Decadron 1 mg NDC#[id number] (Jr) Reviewed 02/09/2012 12:00 AM Depo-Medrol 80 mg NDC#[id number]-Prxpibct Reviewed 03/15/2012 12:00 AM N BLOCK INJ OCCIPITAL Reviewed 03/15/2012 12:00 AM Kenalog Cb-[address]-20 ANNA Reviewed 04/11/2012 12:00 AM COMPLETE CBC W/AUTO DIFF WBC Returned 04/11/2012 12:00 AM COMPREHEN METABOLIC PANEL Returned 04/11/2012 12:00 AM LIPID PANEL Returned 04/11/2012 12:00 AM ASSAY THYROID STIM HORMONE Returned 06/20/2012 12:00 AM THER/PROPH/DIAG INJ SC/IM Reviewed 06/20/2012 12:00 AM Decadron, Per 1 Mg ND# [address]-21 Reviewed 06/20/2012 12:00 AM Depo-Medrol, Per 80 Mg ND#7550-1835-08 Reviewed 09/06/2012 12:00 AM N BLOCK INJ OCCIPITAL Reviewed 09/06/2012 12:00 AM Kenalog Kz-[address]-20 ANNA Reviewed 09/06/2012 12:00 AM X-RAY EXAM RIBS UNI 2 VIEWS Returned 09/26/2012 12:00 AM THER/PROPH/DIAG INJ SC/IM Reviewed 09/26/2012 12:00 AM Decadron, Per 1 Mg [facility]# [address]-03 Reviewed 09/26/2012 12:00 AM Depo-Medrol, Per 80 Mg [facility]#8789-8451-73 Reviewed 10/03/2012 12:00 AM URINALYSIS AUTO W/O SCOPE Reviewed 10/03/2012 12:00 AM THER/PROPH/DIAG INJ SC/IM Reviewed 10/03/2012 12:00 AM Toradol 60 Mg ND#1147-1883-05 Reviewed 10/03/2012 12:00 AM Phenergan, 25Mg ND#3539-7170-64 Reviewed 10/19/2012 12:00 AM N BLOCK INJ OCCIPITAL Reviewed 10/19/2012 12:00 AM Kenalog, Per 10 Mg [facility]#9166-2008-72 Reviewed 10/19/2012 12:00 AM Toradol 30 Mg ND#5832-9389-86 Reviewed 10/19/2012 12:00 AM THER/PROPH/DIAG INJ SC/IM Reviewed 10/31/2012 12:00 AM COMPLETE CBC W/AUTO DIFF WBC Returned 10/31/2012 12:00 AM COMPREHEN METABOLIC PANEL Returned 10/31/2012 12:00 AM LIPID PANEL Returned 11/03/2012 12:[address] THORAX W/O & W/DYE Returned 11/08/2012 12:00 AM N BLOCK INJ OCCIPITAL Reviewed 11/08/2012 12:00 AM Kenalog La-[address]-20 ANNA Reviewed 11/27/2012 12:00 AM COMPLETE CBC [...] Decadron, Per 1 Mg [facility]# [address]-70 Reviewed 01/25/2013 12:00 AM Depo-Medrol, Per 80 Mg [facility]#2081-3550-41 Reviewed 01/26/2013 12:00 AM IMMUNOTHERAPY INJECTIONS Returned [...] Decadron, Per 1 Mg [facility]# [address]-78 Reviewed 05/16/2013 12:00 AM Depo-Medrol, Per 80 Mg [facility]#9707-9832-05 Reviewed 05/31/2013 12:00 AM IMMUNOTHERAPY INJECTIONS Reviewed 06/08/2013 12:00 AM IMMUNOTHERAPY INJECTIONS Reviewed 06/14/2013 12:00 AM IMMUNOTHERAPY INJECTIONS Reviewed 06/28/2013 12:00 AM IMMUNOTHERAPY INJECTIONS Reviewed 07/12/2013 12:00 AM X-RAY EXAM RIBS UNI 2 VIEWS Returned 07/18/2013 12:00 AM Toradol 60 Mg [facility]#9139-4693-32 Reviewed 07/18/2013 12:00 AM THER/PROPH/DIAG INJ SC/IM Reviewed 08/23/2013 12:00 AM COMPLETE CBC W/AUTO DIFF WBC Reviewed 08/23/2013 12:00 AM COMPREHEN METABOLIC PANEL Reviewed 08/23/2013 12:00 AM LIPID PANEL Reviewed 08/31/2013 12:00 AM X-RAY EXAM OF LOWER LEG Returned 09/04/2013 12:00 AM IMMUNOTHERAPY INJECTIONS Reviewed 09/14/2013 12:00 AM THER/PROPH/DIAG INJ SC/IM Reviewed 09/14/2013 12:00 AM Decadron, Per 1 Mg [facility]# [address]-94 Reviewed 09/14/2013 12:00 AM Depo-Medrol, Per 80 Mg [facility]#8632-5820-50 Reviewed 09/20/2013 12:00 AM IMMUNOTHERAPY INJECTIONS Reviewed [...] INJ OCCIPITAL Reviewed 12/10/2009 12:00 AM Kenalog Xm-[address]-20 ANNA Reviewed 12/16/2009 12:00 AM HIV-1ANTIBODY Reviewed 12/16/2009 12:00 AM COMPLETE CBC W/AUTO DIFF WBC Reviewed 12/16/2009 12:00 AM METABOLIC PANEL TOTAL CA Reviewed 12/16/2009 12:00 AM Type and screen Reviewed 12/16/2009 12:00 AM PROTHROMBIN TIME Reviewed 12/16/2009 12:00 AM THROMBOPLASTIN TIME PARTIAL Reviewed 03/18/2010 12:00 AM DRAIN/INJ JOINT/BURSA W/O US Reviewed 03/18/2010 12:00 AM Kenalog Dq-[address]-20 ANNA Reviewed 11/21/2013 12:00 AM RADEX HAND MINIMUM 3 VIEWS Returned 06/03/2010 12:00 AM INJ TRIGGER POINT 1/2 MUSCL Reviewed 06/03/2010 12:00 AM Kenalog per 10Mg Im-[facility]#[address]-68(Niall) Reviewed 12/05/2013 12:00 AM COMPLETE CBC W/AUTO [...] Reviewed 07/23/2010 12:00 AM Kenalog per 10Mg Im-Ndc#[address]-32(Niall) Reviewed 2014 12:00 AM COMPLETE CBC W/AUTO [...] INJ OCCIPITAL Reviewed 10/01/2010 12:00 AM Kenalog Et-[address]-20 ANNA Reviewed 07/25/2014 12:00 AM THER/PROPH/DIAG INJ [...] 0.60 mg/dLCALCIUM 10.90 mg/ dLeGFR >60 mL/min/1.73 [id number] 45.0 U/L 08/31/2013 10:54 AM GLUCOSE 255.0 [...] 0.40 mg/ dLCALCIUM 10.60 mg/dLeGFR >60 mL/min/1.73 [id number] 369.0 mg/ dLCHOLESTEROL 153.0 mg/dLHDL 26.0 mg/dLLDL [...] BILI 0.30 mg/dLCALCIUM 10.0 mg/dLeGFR >60 mL/min/1.73 [id number] YELLOW APPEARANCE CLEAR SPEC GRAV 1.010 pH 5.5 PROTEIN NEGATIVE GLUCOSE NEGATIVE KETONE NEGATIVE BILIRUBIN NEGATIVE BLOOD NEGATIVE NITRITE NEGATIVE LEUK SCREEN NEGATIVE Est Avg Glucose 134.1 mg/dLMICROALBUMIN UR <0.5 MG/DL 02/13/2015 4:38 PM RMSF, IgG, EIA Negative [facility] Spotted [...] DETECTED History Of Immunizations Name Date Admin Mfg Name Mfg Code Trade Name Lot# Route Inj Vis Given Vis Pub CVX Influenza 03/30/2011 Not Entered NE Not Entered Not Entered Not Entered 03/31/2011 05/30/2015 141 Influenza 04/24/2014 sanofi pasteur PMC Fluzone [id number] Intramuscular Left Upper Arm 02/27/2014 01/15/2014 141 Influenza 02/13/2015 sanofi pasteur PMC Fluzone [id number] Intramuscular Left Deltoid 02/13/2015 01/03/2015 140 Tdap [...] Lumbago Jun 6 2011 1:58PM Muscle Spasm Jun 6 2011 1:58PM Headache Jun 9 2011 [...] 2 2014 3:51PM Tendon dysfunction Feb 2 2015 3:51PM Osteoporosis Jul 01 2014 3:51PM Elevated [...] Date Medicare Part A Medicare Part A [id number] N/A [facility] - RHC - Community Plan of [facility] RHC Comm [id number] N/A [place] [employer] - R[facility] [place] [employer] - RHC [id number] May [facility] Comm Plan of [id number] Wednesday, 2012 Medicare Part B Medicare Of [place] [id number] Monday, 2000 [place] Medical [facility] Medical Assistance Prog [id number] Tuesday, 2009 History of Encounters Visit Date Visit Type Provider 07/15/2015 Office visit Kaylynn Mendez AIR CONDITIONING SERVICE TECHNICIAN 07/04/2015 Office visit Heena Dumont MD 06/06/2015 Office visit Heena Dumont MD 06/06/2015 Office visit Kaylynn Mendez AIR CONDITIONING SERVICE TECHNICIAN 06/02/2015 Office visit Kaylnyn Mendez AIR CONDITIONING SERVICE TECHNICIAN 05/26/2015 Office visit Kaylynn Mendez AIR CONDITIONING SERVICE TECHNICIAN 05/20/2015 Office visit Kaylynn Mendez AIR CONDITIONING SERVICE TECHNICIAN 05/08/2015 Office visit Heena Dumont MD 05/06/2015 Office visit Kaylynn Mendez AIR CONDITIONING SERVICE TECHNICIAN 04/29/2015 Office visit Kaylynn Mendez AIR CONDITIONING SERVICE TECHNICIAN 03/27/2015 Voided Brittni Yanez AIR CONDITIONING SERVICE TECHNICIAN 03/21/2015 Office visit Heena Dumont MD 03/12/2015 Office visit Kaylynn Mendez AIR CONDITIONING SERVICE TECHNICIAN 02/26/2015 Office visit Brittni Yanez AIR CONDITIONING SERVICE TECHNICIAN 02/13/2015 Office visit Heena Dumont MD 01/15/2015 Office visit Brittni Yanez AIR CONDITIONING SERVICE TECHNICIAN 01/13/2015 Office visit Heena Dumont MD 01/08/[address] Carol Fowler MD 01/01/2015 Office visit Brittni Yanez AIR CONDITIONING SERVICE TECHNICIAN 12/13/2014 Office visit Heena Dumont MD 11/27/2014 Office visit Kaylynn Mendez AIR CONDITIONING SERVICE TECHNICIAN 11/14/2014 Office visit Heena Dumont MD 10/18/2014 Office visit Heena Dumont MD 10/17/2014 [facility] John Hoskins MD 10/09/2014 Office visit Heena Dumnot MD 09/25/2014 Office visit Heena Dumont MD 09/17/2014 Office visit Kaylynn Mendez AIR CONDITIONING SERVICE TECHNICIAN 09/04/2014 Office visit Heena Dumont MD 08/28/2014 Office visit Kaylynn Mendez AIR CONDITIONING SERVICE TECHNICIAN 08/23/2014 [facility] John Hoskins MD 08/01/2014 Office visit Kaylynn Mendez AIR CONDITIONING SERVICE TECHNICIAN 07/29/2014 Office visit Heena Dumont MD 07/25/2014 Nurse visit Heena Dumont MD 07/17/2014 Office visit Kaylynn Mendez AIR CONDITIONING SERVICE TECHNICIAN 07/11/2014 Office visit Heena Dumont MD 07/01/2014 Office visit Heena Dumont MD 06/25/2014 Office visit Kaylynn Mendez AIR CONDITIONING SERVICE TECHNICIAN 06/12/2014 Office visit Kaylynn Mendez AIR CONDITIONING SERVICE TECHNICIAN 06/06/2014 Office visit Kaylynn Mendez AIR CONDITIONING SERVICE TECHNICIAN 05/27/2014 Office visit Heena Dumont MD 04/20/2014 Office visit Yesica Falcon AIR CONDITIONING SERVICE TECHNICIAN 03/29/2014 Office visit Na Jones AIR CONDITIONING SERVICE TECHNICIAN 03/15/2014 Office visit Heena Dumont MD 2014 Office visit Heena Dumont MD 2014 [facility] John Hoskins MD 02/27/2014 Nurse visit Heena Dumont MD 02/13/2014 Office visit Lena El AIR CONDITIONING SERVICE TECHNICIAN 02/07/2014 Office visit Heena Dumont MD 02/03/2014 Office visit Na Jones AIR CONDITIONING SERVICE TECHNICIAN 01/30/2014 Office visit Kaylynn Mendez AIR CONDITIONING SERVICE TECHNICIAN 01/24/2014 Office visit Sundeep Russell AIR CONDITIONING SERVICE TECHNICIAN 01/16/2014 Office visit Kaylynn Mendez AIR CONDITIONING SERVICE TECHNICIAN 01/10/2014 Nurse visit Kaylynn Mendez AIR CONDITIONING SERVICE TECHNICIAN 01/08/2014 Office visit Kaylynn Mendez AIR CONDITIONING SERVICE TECHNICIAN 12/05/2013 Office visit Kaylynn Mendez AIR CONDITIONING SERVICE TECHNICIAN 11/21/2013 Office visit Kaylynn Mendez AIR CONDITIONING SERVICE TECHNICIAN 10/23/2013 Office visit Brittni Yanez AIR CONDITIONING SERVICE TECHNICIAN 10/17/2013 Nurse visit Heena Dumont MD 10/12/2013 Office visit Kaylynn Mendez AIR CONDITIONING SERVICE TECHNICIAN 10/02/2013 Office visit Heena Dumont MD 09/20/2013 Nurse visit Kaylynn Walker AIR CONDITIONING SERVICE TECHNICIAN 09/20/2013 Voided Heena Dumont MD 09/14/2013 Office visit Kaylynn Walker AIR CONDITIONING SERVICE TECHNICIAN 09/05/2013 Office visit Sundeep Russell AIR CONDITIONING SERVICE TECHNICIAN 09/04/2013 Nurse visit Kaylynn Walker AIR CONDITIONING SERVICE TECHNICIAN 08/31/2013 Office visit Kaylynn Walker AIR CONDITIONING SERVICE TECHNICIAN 08/23/2013 Office visit Heena Dumont MD 08/10/2013 Office visit Kaylynn Walker AIR CONDITIONING SERVICE TECHNICIAN 07/25/2013 Office visit Kaylynn Walker AIR CONDITIONING SERVICE TECHNICIAN 07/18/2013 Office visit Kaylynn Walker AIR CONDITIONING SERVICE TECHNICIAN 07/12/2013 Office visit Kaylynn Walker AIR CONDITIONING SERVICE TECHNICIAN 06/28/2013 Nurse visit Kaylynn Walker AIR CONDITIONING SERVICE TECHNICIAN 06/14/2013 Nurse visit Kaylynn Walker AIR CONDITIONING SERVICE TECHNICIAN 06/08/2013 Nurse visit Kaylynn Walker AIR CONDITIONING SERVICE TECHNICIAN 05/31/2013 Nurse visit Chadd Norris DO 05/18/2013 Office visit Terese Davidson MD 05/16/2013 Office visit Kaylynn Walker AIR CONDITIONING SERVICE TECHNICIAN 05/09/2013 Office visit Kaylynn Mendez AIR CONDITIONING SERVICE TECHNICIAN 04/29/2013 [facility] Eliseo Hoskins MD 04/25/2013 Nurse visit Kaylynn Walker AIR CONDITIONING SERVICE TECHNICIAN 04/17/2013 Office visit Kaylynn Walker AIR CONDITIONING SERVICE TECHNICIAN 04/03/2013 Nurse visit Kaylynn Walker AIR CONDITIONING SERVICE TECHNICIAN 04/03/2013 Office visit Terese Davidson MD 03/28/2013 Office visit Sundeep Russell AIR CONDITIONING SERVICE TECHNICIAN 03/21/2013 Office visit Kalyynn Mendez AIR CONDITIONING SERVICE TECHNICIAN 03/20/2013 Office visit Terese Davidson MD 03/14/2013 Nurse visit Kaylynn Walker AIR CONDITIONING SERVICE TECHNICIAN 03/05/2013 Nurse visit Kaylynn Mendez AIR CONDITIONING SERVICE TECHNICIAN 02/19/2013 Office visit Terese Davidson MD 02/16/2013 Nurse visit Kaylynn Walker AIR CONDITIONING SERVICE TECHNICIAN 02/09/2013 Office visit Sundeep Russell AIR CONDITIONING SERVICE TECHNICIAN 02/08/2013 Nurse visit Kaylynn Walker AIR CONDITIONING SERVICE TECHNICIAN 02/01/2013 Nurse visit Kaylynn Walker AIR CONDITIONING SERVICE TECHNICIAN 01/26/2013 Nurse visit Sabrina Andrea DECORATOR STORE 01/25/2013 Office visit Kaylynn Walker AIR CONDITIONING SERVICE TECHNICIAN 01/22/2013 Office visit Yoan Castaneda MD 01/18/2013 Nurse visit Kaylynn Walker AIR CONDITIONING SERVICE TECHNICIAN 01/11/2013 Nurse visit Kaylynn Walker AIR CONDITIONING SERVICE TECHNICIAN 01/05/2013 Nurse visit Kaylynn Walker AIR CONDITIONING SERVICE TECHNICIAN 12/29/2012 Office visit Kaylynn Walker AIR CONDITIONING SERVICE TECHNICIAN 11/27/2012 Office visit Kaylynn Walker AIR CONDITIONING SERVICE TECHNICIAN 11/08/2012 Office visit Odell Tierney MD 11/08/2012 Voided Odell Tierney MD 11/07/2012 Office visit Kaylynn Mendez AIR CONDITIONING SERVICE TECHNICIAN 10/31/2012 [facility] John Hoskins MD 10/31/2012 Office visit Kaylynn Mendez AIR CONDITIONING SERVICE TECHNICIAN 10/19/2012 Office visit Genoveva Ayala AIR CONDITIONING SERVICE TECHNICIAN 10/10/2012 Office visit Kaylynn Andrea AIR CONDITIONING SERVICE TECHNICIAN 10/03/2012 Office visit Kaylynn Mendez AIR CONDITIONING SERVICE TECHNICIAN 09/26/2012 Office visit Kaylynn Mendez AIR CONDITIONING SERVICE TECHNICIAN 09/06/2012 Office visit Kaylynn Mendez AIR CONDITIONING SERVICE TECHNICIAN 09/06/2012 Office visit Odell Tierney MD 08/31/2012 Voided Kaylynn Mendez AIR CONDITIONING SERVICE TECHNICIAN 07/28/2012 Office visit Kaylynn Mendez AIR CONDITIONING SERVICE TECHNICIAN 07/27/2012 Office visit David Joyner DO 07/20/2012 [facility] David Joyner DO 07/13/2012 Hospital David Bouman DO 07/11/2012 Office visit Kaylynn Mendez AIR CONDITIONING SERVICE TECHNICIAN 06/27/2012 [facility] Odell Tierney MD 06/21/2012 Office visit David Joyner DO 06/21/2012 Office visit Odell Tierney MD 06/20/2012 Office visit Brittni Yanez AIR CONDITIONING SERVICE TECHNICIAN 06/06/2012 Office visit Odell Tierney MD 05/03/2012 Office visit Kaylynn Mendez AIR CONDITIONING SERVICE TECHNICIAN 04/28/2012 Office visit Brittni Yanez AIR CONDITIONING SERVICE TECHNICIAN 04/11/2012 Office visit Kaylynn Mendez AIR CONDITIONING SERVICE TECHNICIAN 04/06/2012 Hospital John Hoskins MD 03/30/2012 Office visit Kaylynn Mendez AIR CONDITIONING SERVICE TECHNICIAN 03/15/2012 Office visit Kaylynn Mendez AIR CONDITIONING SERVICE TECHNICIAN 03/15/2012 Office visit Odell Tierney MD 02/09/2012 Office visit Kaylynn Mendez AIR CONDITIONING SERVICE TECHNICIAN 12/23/2011 Office visit Kaylynn Mendez AIR CONDITIONING SERVICE TECHNICIAN 11/02/2011 Office visit Kaylynn Mendez AIR CONDITIONING SERVICE TECHNICIAN 10/14/2011 Office visit Kaylynn Mendez AIR CONDITIONING SERVICE TECHNICIAN 09/27/2011 Office visit Kaylynn Mendez AIR CONDITIONING SERVICE TECHNICIAN 08/19/2011 Hospital John Hoskins MD 08/18/2011 [facility] John Hoskins MD 08/18/2011 Office visit Kaylynn Mendez AIR CONDITIONING SERVICE TECHNICIAN 08/02/2011 Office visit Kaylynn Mendez AIR CONDITIONING SERVICE TECHNICIAN 07/08/2011 Office visit Kaylynn Mendez AIR CONDITIONING SERVICE TECHNICIAN 07/05/2011 Office visit Odell Tierney MD 06/15/2011 Office visit Kaylynn Mendez AIR CONDITIONING SERVICE TECHNICIAN 05/14/2011 Office visit Kaylynn Mendez AIR CONDITIONING SERVICE TECHNICIAN 05/11/2011 Office visit Odell Tierney MD 04/28/2011 Office visit Kaylynn Mendez AIR CONDITIONING SERVICE TECHNICIAN 03/02/2011 Office visit Chadd Norris DO [...]
--- OUTSIDE RECORDS SUMMARY | 2018-05-10 00:12 | XMS REPORT ---
Author Sundeep Carlson [facility] Address [address] [place], [place] [id number] Care Team Providers Care Child Care Giver Name Role Phone Sundeep Russell PCP Allergies [...] SPASM OneTouch Delnatalio Lancets 33 gauge miscellaneous [facility] 08/21/2014 use as directed Calcium 500 + [...] 08/27/2014 use as directed for 99 days Geronimo 5-325 mg oral tablet 06/17/2014 06/27/2014 take [...] a day as needed for 30 days aelixrui-mziuwsrik-AB 3.5-10,000-1 mg/mL-unit/mL-% otic drops,suspension 201401/08/2015 instill 4 [...] Reviewed 04/28/2011 12:00 AM Decadron 1 mg [facility]#[id number] (Jr) Reviewed 04/28/2011 12:00 AM Depo-Medrol 80 mg ND#[id number]-Wnlfdzpw Reviewed 09/02/2015 12:00 AM Toradol 60 Mg [facility]#5165-5792-28 Reviewed 09/02/2015 12:00 AM Phenergan, Up to 50 Mg [facility] Medicaid Reviewed 09/16/2015 12:00 AM Toradol 60 Mg [facility]#7530-2037-11 Reviewed 09/16/2015 12:00 AM Phenergan Up to 50 mg [facility] Medicare Reviewed 05/11/2011 12:00 AM N BLOCK INJ OCCIPITAL Reviewed 05/11/2011 12:00 AM Kenalog Ak-[address]-20 ANNA Reviewed 06/15/2011 12:00 AM COMPLETE CBC W/AUTO DIFF WBC Returned 06/15/2011 12:00 AM COMPREHEN METABOLIC PANEL Returned 07/08/2011 12:00 AM THER/PROPH/DIAG INJ SC/IM Reviewed 07/08/2011 12:00 AM Toradol,15mg [facility]#[id number], Brunildaer Reviewed 07/08/2011 12:00 AM Phenergan 50 Mg Im [facility] [id number] ALLIE Hoskins Reviewed 08/02/2011 12:00 AM THER/PROPH/DIAG INJ SC/IM Reviewed 08/02/2011 12:00 AM Decadron 1 mg ND#[id number] (Jr) Reviewed 08/02/2011 12:00 AM Depo-Medrol 80 mg ND#[id number]-Bhtnotbq Reviewed 09/27/2011 12:00 AM THER/PROPH/DIAG INJ SC/IM Reviewed 09/27/2011 12:00 AM Depo-Medrol 80 mg NDC#[id number]-Tjyhhtls Reviewed 10/14/2011 12:00 AM X-RAY EXAM OF ABDOMEN Returned 10/14/2011 12:00 AM URINALYSIS AUTO W/O SCOPE Reviewed 12/23/2011 12:00 AM THER/PROPH/DIAG INJ SC/IM Reviewed 12/23/2011 12:00 AM Decadron 1 mg N[facility]#[id number] (Jr) Reviewed 12/23/2011 12:00 AM Depo-Medrol 80 mg NDC#[id number]-Tuqgxdnl Reviewed 02/09/2012 12:00 AM THER/PROPH/DIAG INJ SC/IM Reviewed 02/09/2012 12:00 AM Decadron 1 mg NDC#[id number] (Jr) Reviewed 02/09/2012 12:00 AM Depo-Medrol 80 mg NDC#[id number]-Nfoqhjjl Reviewed 03/15/2012 12:00 AM N BLOCK INJ OCCIPITAL Reviewed 03/15/2012 12:00 AM Kenalog Ye-[address]-20 ANNA Reviewed 04/11/2012 12:00 AM COMPLETE CBC W/AUTO DIFF WBC Returned 04/11/2012 12:00 AM COMPREHEN METABOLIC PANEL Returned 04/11/2012 12:00 AM LIPID PANEL Returned 04/11/2012 12:00 AM ASSAY THYROID STIM HORMONE Returned 06/20/2012 12:00 AM THER/PROPH/DIAG INJ SC/IM Reviewed 06/20/2012 12:00 AM Decadron, Per 1 Mg ND# [address]-56 Reviewed 06/20/2012 12:00 AM Depo-Medrol, Per 80 Mg ND#5540-9498-63 Reviewed 09/06/2012 12:00 AM N BLOCK INJ OCCIPITAL Reviewed 09/06/2012 12:00 AM Kenalog Xg-[address]-20 ANNA Reviewed 09/06/2012 12:00 AM X-RAY EXAM RIBS UNI 2 VIEWS Returned 09/26/2012 12:00 AM THER/PROPH/DIAG INJ SC/IM Reviewed 09/26/2012 12:00 AM Decadron, Per 1 Mg NDC# [address]-34 Reviewed 09/26/2012 12:00 AM Depo-Medrol, Per 80 Mg ND#7420-3789-48 Reviewed 10/03/2012 12:00 AM URINALYSIS AUTO W/O SCOPE Reviewed 10/03/2012 12:00 AM THER/PROPH/DIAG INJ SC/IM Reviewed 10/03/2012 12:00 AM Toradol 60 Mg ND#3392-4429-14 Reviewed 10/03/2012 12:00 AM Phenergan, 25Mg NDC#2676-6098-55 Reviewed 10/19/2012 12:00 AM N BLOCK INJ OCCIPITAL Reviewed 10/19/2012 12:00 AM Kenalog, Per 10 Mg ND#3360-3799-82 Reviewed 10/19/2012 12:00 AM Toradol 30 Mg NDC#8554-4041-62 Reviewed 10/19/2012 12:00 AM THER/PROPH/DIAG INJ SC/IM Reviewed 10/31/2012 12:00 AM COMPLETE CBC W/AUTO DIFF WBC Returned 10/31/2012 12:00 AM COMPREHEN METABOLIC PANEL Returned 10/31/2012 12:00 AM LIPID PANEL Returned 11/03/2012 12:[address] THORAX W/O & W/DYE Returned 11/08/2012 12:00 AM N BLOCK INJ OCCIPITAL Reviewed 11/08/2012 12:00 AM Kenalog Qj-[address]-20 ANNA Reviewed 11/27/2012 12:00 AM COMPLETE CBC [...] Per 1 Mg [facility]# [address]-35 Reviewed 01/25/2013 12:00 AM Depo-Medrol, Per 80 Mg [facility]#7926-0095-61 Reviewed 01/26/2013 12:00 AM IMMUNOTHERAPY INJECTIONS Returned [...] Per 1 Mg [facility]# [address]-92 Reviewed 05/16/2013 12:00 AM Depo-Medrol, Per 80 Mg [facility]#4944-4381-49 Reviewed 05/31/2013 12:00 AM IMMUNOTHERAPY INJECTIONS Reviewed 06/08/2013 12:00 AM IMMUNOTHERAPY INJECTIONS Reviewed 06/14/2013 12:00 AM IMMUNOTHERAPY INJECTIONS Reviewed 06/28/2013 12:00 AM IMMUNOTHERAPY INJECTIONS Reviewed 07/12/2013 12:00 AM X-RAY EXAM RIBS UNI 2 VIEWS Returned 07/18/2013 12:00 AM Toradol 60 Mg [facility]#5575-4759-94 Reviewed 07/18/2013 12:00 AM THER/PROPH/DIAG INJ SC/IM Reviewed 08/23/2013 12:00 AM COMPLETE CBC W/AUTO DIFF WBC Reviewed 08/23/2013 12:00 AM COMPREHEN METABOLIC PANEL Reviewed 08/23/2013 12:00 AM LIPID PANEL Reviewed 08/31/2013 12:00 AM X-RAY EXAM OF LOWER LEG Returned 09/04/2013 12:00 AM IMMUNOTHERAPY INJECTIONS Reviewed 09/14/2013 12:00 AM THER/PROPH/DIAG INJ SC/IM Reviewed 09/14/2013 12:00 AM Decadron, Per 1 Mg [facility]# [address]-49 Reviewed 09/14/2013 12:00 AM Depo-Medrol, Per 80 Mg [facility]#7845-6914-67 Reviewed 09/20/2013 12:00 AM IMMUNOTHERAPY INJECTIONS Reviewed [...] INJ OCCIPITAL Reviewed 12/10/2009 12:00 AM Kenalog Cd-[address]-20 ANNA Reviewed 12/16/2009 12:00 AM HIV-1ANTIBODY Reviewed 12/16/2009 12:00 AM COMPLETE CBC W/AUTO DIFF WBC Reviewed 12/16/2009 12:00 AM METABOLIC PANEL TOTAL CA Reviewed 12/16/2009 12:00 AM Type and screen Reviewed 12/16/2009 12:00 AM PROTHROMBIN TIME Reviewed 12/16/2009 12:00 AM THROMBOPLASTIN TIME PARTIAL Reviewed 03/18/2010 12:00 AM DRAIN/INJ JOINT/BURSA W/O US Reviewed 03/18/2010 12:00 AM Kenalog Ms-[address]-20 ANNA Reviewed 11/21/2013 12:00 AM RADEX HAND MINIMUM 3 VIEWS Returned 06/03/2010 12:00 AM INJ TRIGGER POINT 1/2 MUSCL Reviewed 06/03/2010 12:00 AM Kenalog per 10Mg -[facility]#[address]-45(Niall) Reviewed 12/05/2013 12:00 AM COMPLETE CBC W/AUTO [...] Kenalog per 10Mg Im-[facility]#[address]-58(Niall) Reviewed 2014 12:00 AM COMPLETE CBC W/AUTO [...] INJ OCCIPITAL Reviewed 10/01/2010 12:00 AM Kenalog Fn-[address]-20 ANNA Reviewed 07/25/2014 12:00 AM THER/PROPH/DIAG INJ [...] 0.60 mg/dLCALCIUM 10.90 mg/ dLeGFR >60 mL/min/1.73 [id number] 45.0 U/L 08/31/2013 10:54 AM GLUCOSE 255.0 [...] 0.40 mg/ dLCALCIUM 10.60 mg/dLeGFR >60 mL/min/1.73 [id number] 369.0 mg/ dLCHOLESTEROL 153.0 mg/dLHDL 26.0 mg/dLLDL [...] BILI 0.30 mg/dLCALCIUM 10.0 mg/dLeGFR >60 mL/min/1.73 [id number] YELLOW APPEARANCE CLEAR SPEC GRAV 1.010 pH 5.5 PROTEIN NEGATIVE GLUCOSE NEGATIVE KETONE NEGATIVE BILIRUBIN NEGATIVE BLOOD NEGATIVE NITRITE NEGATIVE LEUK SCREEN NEGATIVE HGB A1C 6.30 %Est Avg Glucose 134.1 mg/dLMICROALBUMIN UR <0.5 MG/DL 02/13/2015 4:38 PM RMSF, IgG, EIA Negative [facility] Spotted Fever,IgM 0.51 E. chaffeensis [...] 141 Influenza 04/24/2014 sanofi pasteur PMC Fluzone [id number] Intramuscular Left Upper Arm 02/27/2014 01/15/2014 141 Influenza 02/13/2015 sanofi pasteur PMC Fluzone [id number] Intramuscular Left Deltoid 02/13/2015 01/03/2015 140 Tdap [...] Start Date Medicare Part A Medicare C [id number] N/A [facility] Comm [id number] N/A Medicare Part A Medicare - Lab/Xray [id number] N/A Medicare Part B Medicare Of [place] [id number] Monday, February 28, 2000 [place] [facility] [place] [facility] [place] [facility] [id number] Tuesday, November 10, 2009 Medicare Part A Medicare Part A [id number] N/A [place] [facility] [id number] [facility] Comm Plan of [id number] Wednesday, May 30, 2012 History of Encounters Visit Date Visit Type Provider 11/03/2015 Office visit Sundeep Russell INSURANCE FOLLOW UP SPECIALIST 10/20/2015 Office visit Kaylynn Walker INSURANCE FOLLOW UP SPECIALIST 09/23/2015 Office visit Kaylynn Walker INSURANCE FOLLOW UP SPECIALIST 09/16/[address] Pepe Figueroa MD 09/02/2015 Office visit Kaylynn Walker INSURANCE FOLLOW UP SPECIALIST 09/01/2015 Office visit Kaylynn Walker INSURANCE FOLLOW UP SPECIALIST 07/30/2015 Office visit Heena Dumont MD 07/15/2015 Office visit Kaylynn Walker INSURANCE FOLLOW UP SPECIALIST 07/04/2015 Office visit Heena Dumont MD 06/06/2015 Office visit Heena Dumont MD 06/06/2015 Office visit Kaylynn Walker INSURANCE FOLLOW UP SPECIALIST 06/02/2015 Office visit Kaylynn Walker INSURANCE FOLLOW UP SPECIALIST 05/26/2015 Office visit Kaylynn Walker INSURANCE FOLLOW UP SPECIALIST 05/20/2015 Office visit Kaylynn Walker INSURANCE FOLLOW UP SPECIALIST 05/08/2015 Office visit Heena Dumont MD 05/06/2015 Office visit Kaylynn Walker INSURANCE FOLLOW UP SPECIALIST 04/29/2015 Office visit Kaylynn Walker INSURANCE FOLLOW UP SPECIALIST 03/27/2015 Voided Brittni Yanez INSURANCE FOLLOW UP SPECIALIST 03/21/2015 Office visit Heena Dumont MD 03/12/2015 Office visit Kaylynn Mendez INSURANCE FOLLOW UP SPECIALIST 02/26/2015 Office visit Brittni Yanez INSURANCE FOLLOW UP SPECIALIST 02/13/2015 Office visit Heena Dumont MD 01/15/2015 Office visit Brittni Yanez INSURANCE FOLLOW UP SPECIALIST 01/13/2015 Office visit Heena Dumont MD 01/08/[address] Carol Fowler MD 01/01/2015 Office visit Brittni Yanez INSURANCE FOLLOW UP SPECIALIST 12/13/2014 Office visit Heena Dumont MD 11/27/2014 Office visit Kaylynn Mendez INSURANCE FOLLOW UP SPECIALIST 11/14/2014 Office visit Heena Dumont MD 10/18/2014 Office visit Heena Dumont MD 10/17/2014 Hospital John Hoskins MD 10/09/2014 Office visit Heena Dumont MD 09/25/2014 Office visit Heena Dumont MD 09/17/2014 Office visit Kaylynn Mendez INSURANCE FOLLOW UP SPECIALIST 09/04/2014 Office visit Heena Dumont MD 08/28/2014 Office visit Kaylynn Mendez INSURANCE FOLLOW UP SPECIALIST 08/23/2014 [facility] John Hoskins MD 08/01/2014 Office visit Kaylynn Mendez INSURANCE FOLLOW UP SPECIALIST 07/29/2014 Office visit Heena Dumont MD 07/25/2014 Nurse visit Heena Dumont MD 07/17/2014 Office visit Kaylynn Mendez INSURANCE FOLLOW UP SPECIALIST 07/11/2014 Office visit Heena Dumont MD 07/01/2014 Office visit Heena Dumont MD 06/25/2014 Office visit Kaylynn Mendez INSURANCE FOLLOW UP SPECIALIST 06/12/2014 Office visit Kaylynn Mendez INSURANCE FOLLOW UP SPECIALIST 06/06/2014 Office visit Kaylynn Mendez INSURANCE FOLLOW UP SPECIALIST 05/27/2014 Office visit Heena Dumont MD 04/20/2014 Office visit Yesica Falcon INSURANCE FOLLOW UP SPECIALIST 03/29/2014 Office visit Na Jones INSURANCE FOLLOW UP SPECIALIST 03/15/2014 Office visit Heena Dumont MD 2014 Office visit Heena Dumont MD 2014 [facility] John Hoskins MD 02/27/2014 Nurse visit Heena Dumont MD 02/13/2014 Office visit Lena El INSURANCE FOLLOW UP SPECIALIST 02/07/2014 Office visit Heena Dumont MD 02/03/2014 Office visit Na Jones INSURANCE FOLLOW UP SPECIALIST 01/30/2014 Office visit Kaylynn Mendez INSURANCE FOLLOW UP SPECIALIST 01/24/2014 Office visit Sundeep Russell INSURANCE FOLLOW UP SPECIALIST 01/16/2014 Office visit Kaylynn Mendez INSURANCE FOLLOW UP SPECIALIST 01/10/2014 Nurse visit Kaylynn Mendez INSURANCE FOLLOW UP SPECIALIST 01/08/2014 Office visit Kaylynn Walker INSURANCE FOLLOW UP SPECIALIST 12/05/2013 Office visit Kaylynn Walker INSURANCE FOLLOW UP SPECIALIST 11/21/2013 Office visit Kaylynn Mendez INSURANCE FOLLOW UP SPECIALIST 10/23/2013 Office visit Brittni Yanez INSURANCE FOLLOW UP SPECIALIST 10/17/2013 Nurse visit Heena Dumont MD 10/12/2013 Office visit Kaylynn Mendez INSURANCE FOLLOW UP SPECIALIST 10/02/2013 Office visit Heena Dumont MD 09/20/2013 Nurse visit Kaylynn Mendez INSURANCE FOLLOW UP SPECIALIST 09/20/2013 Voided Henea Dumont MD 09/14/2013 Office visit Kaylynn Mendez INSURANCE FOLLOW UP SPECIALIST 09/05/2013 Office visit Sundeep Russell INSURANCE FOLLOW UP SPECIALIST 09/04/2013 Nurse visit Kaylynn Walker INSURANCE FOLLOW UP SPECIALIST 08/31/2013 Office visit Kaylynn Mendez INSURANCE FOLLOW UP SPECIALIST 08/23/2013 Office visit Heena Dumont MD 08/10/2013 Office visit Kaylynn Walker INSURANCE FOLLOW UP SPECIALIST 07/25/2013 Office visit Kaylynn Walker INSURANCE FOLLOW UP SPECIALIST 07/18/2013 Office visit Kaylynn Walker INSURANCE FOLLOW UP SPECIALIST 07/12/2013 Office visit Kaylynn Walker INSURANCE FOLLOW UP SPECIALIST 06/28/2013 Nurse visit Kaylynn Walker INSURANCE FOLLOW UP SPECIALIST 06/14/2013 Nurse visit Kaylynn Walker INSURANCE FOLLOW UP SPECIALIST 06/08/2013 Nurse visit Kaylynn Walker INSURANCE FOLLOW UP SPECIALIST 05/31/2013 Nurse visit Chadd Norris DO 05/18/2013 Office visit Terese Davidson MD 05/16/2013 Office visit Kaylynn Walker INSURANCE FOLLOW UP SPECIALIST 05/09/2013 Office visit Kaylynn Walker INSURANCE FOLLOW UP SPECIALIST 04/29/2013 [facility] John Hoskins MD 04/25/2013 Nurse visit Kaylynn Walker INSURANCE FOLLOW UP SPECIALIST 04/17/2013 Office visit Kaylynn Walker INSURANCE FOLLOW UP SPECIALIST 04/03/2013 Nurse visit Kaylynn Walker INSURANCE FOLLOW UP SPECIALIST 04/03/2013 Office visit Terese Davidson MD 03/28/2013 Office visit Sundeep Russell INSURANCE FOLLOW UP SPECIALIST 03/21/2013 Office visit Kaylynn Walker INSURANCE FOLLOW UP SPECIALIST 03/20/2013 Office visit Terese Davidson MD 03/14/2013 Nurse visit Kaylynn Walker INSURANCE FOLLOW UP SPECIALIST 03/05/2013 Nurse visit Kaylynn Mendez INSURANCE FOLLOW UP SPECIALIST 02/19/2013 Office visit Terese Davidson MD 02/16/2013 Nurse visit Kaylynn Walker INSURANCE FOLLOW UP SPECIALIST 02/09/2013 Office visit Sundeep Russell INSURANCE FOLLOW UP SPECIALIST 02/08/2013 Nurse visit Kaylynn Walker INSURANCE FOLLOW UP SPECIALIST 02/01/2013 Nurse visit Kaylynn Mendez INSURANCE FOLLOW UP SPECIALIST 01/26/2013 Nurse visit 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 01/25/2013 Office visit Kaylynn Andrea INSURANCE FOLLOW UP SPECIALIST 01/22/2013 Office visit Yoan Castaneda MD 01/18/2013 Nurse visit Kaylynn Walker INSURANCE FOLLOW UP SPECIALIST 01/11/2013 Nurse visit Kaylynn Walker INSURANCE FOLLOW UP SPECIALIST 01/05/2013 Nurse visit Kaylynn Walker INSURANCE FOLLOW UP SPECIALIST 12/29/2012 Office visit Kaylynn Walker INSURANCE FOLLOW UP SPECIALIST 11/27/2012 Office visit Kaylynn Mendez INSURANCE FOLLOW UP SPECIALIST 11/08/2012 Office visit Odell Tierney MD 11/08/2012 Voided Odell Tierney MD 11/07/2012 Office visit Kaylynn Mendez INSURANCE FOLLOW UP SPECIALIST 10/31/2012 [facility] John Hoskins MD 10/31/2012 Office visit Kaylynn Walker INSURANCE FOLLOW UP SPECIALIST 10/19/2012 Office visit Genoveva Ayala INSURANCE FOLLOW UP SPECIALIST 10/10/2012 Office visit Kaylynn Mendez INSURANCE FOLLOW UP SPECIALIST 10/03/2012 Office visit Kaylynn Walker INSURANCE FOLLOW UP SPECIALIST 09/26/2012 Office visit Kaylynn Walker INSURANCE FOLLOW UP SPECIALIST 09/06/2012 Office visit Kaylynn Mendez INSURANCE FOLLOW UP SPECIALIST 09/06/2012 Office visit Odell Tierney MD 08/31/2012 Voided Kaylynn Mendez INSURANCE FOLLOW UP SPECIALIST 07/28/2012 Office visit Kaylynn Mendez INSURANCE FOLLOW UP SPECIALIST 07/27/2012 Office visit David Joyner DO 07/20/2012 [facility] David Joyner DO 07/13/2012 [facility] David Joyner DO 07/11/2012 Office visit Kaylynn Mendez INSURANCE FOLLOW UP SPECIALIST 06/27/2012 [facility] Odell Tierney MD 06/21/2012 Office visit David Joyner DO 06/21/2012 Office visit Odell Tierney MD 06/20/2012 Office visit Brittni Yanez INSURANCE FOLLOW UP SPECIALIST 06/06/2012 Office visit Odell Tierney MD 05/03/2012 Office visit Kaylynn Mendez INSURANCE FOLLOW UP SPECIALIST 04/28/2012 Office visit Brittni Tomy Yanez INSURANCE FOLLOW UP SPECIALIST 04/11/2012 Office visit Kaylynn Mendez INSURANCE FOLLOW UP SPECIALIST 04/06/2012 Hospital John Hoskins MD 03/30/2012 Office visit Kaylynn Walker INSURANCE FOLLOW UP SPECIALIST 03/15/2012 Office visit Kaylynn Walker INSURANCE FOLLOW UP SPECIALIST 03/15/2012 Office visit Odell Tierney MD 02/09/2012 Office visit Kaylynn Walker INSURANCE FOLLOW UP SPECIALIST 12/23/2011 Office visit Kaylynn Walker INSURANCE FOLLOW UP SPECIALIST 11/02/2011 Office visit Kaylynn Walker INSURANCE FOLLOW UP SPECIALIST 10/14/2011 Office visit Kaylynn Walker INSURANCE FOLLOW UP SPECIALIST 09/27/2011 Office visit Kaylynn Walker INSURANCE FOLLOW UP SPECIALIST 08/19/2011 Hospital John Hoskins MD 08/18/2011 Hospital John Hoskins MD 08/18/2011 Office visit Kaylynn Mendez INSURANCE FOLLOW UP SPECIALIST 08/02/2011 Office visit Kaylynn Walker INSURANCE FOLLOW UP SPECIALIST 07/08/2011 Office visit Kaylynn Mendez INSURANCE FOLLOW UP SPECIALIST 07/05/2011 Office visit Odell Tierney MD 06/15/2011 Office visit Kaylynn Mendez INSURANCE FOLLOW UP SPECIALIST 05/14/2011 Office visit Kaylynn Andrea INSURANCE FOLLOW UP SPECIALIST 05/11/2011 Office visit Odell Tierney MD 04/28/2011 Office visit Kaylynn Mendez INSURANCE FOLLOW UP SPECIALIST 03/02/2011 Office visit Chadd Norris DO [...]
--- OUTSIDE RECORDS SUMMARY | 2018-05-10 00:34 | XMS REPORT ---
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 uvljisiz-vamioxvqn-TD 3.5-10,000-1 mg/mL-unit/mL-% otic drops,suspension 201607/23/2016 instill 4 [...] route every 12 hours for 30 days Discontinued Name Start Date [...] HC BMI BSA BMI Percentile O2 Sat(%) 03/05/2017 9:12:00 AM 132 mmHg 64 mmHg [...] Reviewed 04/28/2011 12:00 AM Decadron 1 mg ND#[id number] (Jr) Reviewed 04/28/2011 12:00 AM Depo-Medrol 80 mg ND#[id number]-Gftjpais Reviewed 09/02/2015 12:00 AM Toradol 60 Mg NDC#4753-5742-56 Reviewed 09/02/2015 12:00 AM Phenergan, Up to 50 Mg RHC Medicaid Reviewed 09/16/2015 12:00 AM Toradol 60 Mg NDC#8256-7413-05 Reviewed 09/16/2015 12:00 AM Phenergan Up to 50 mg RHC Medicare Reviewed 05/11/2011 12:00 AM N BLOCK INJ OCCIPITAL Reviewed 05/11/2011 12:00 AM Kenalog Um-[address]-20 ANNA Reviewed 11/13/2015 12:00 AM ASSAY OF [...] INJ SC/IM Reviewed 07/08/2011 12:00 AM Toradol,15mg [facility]#[id number], [place] Reviewed 07/08/2011 12:00 AM Phenergan 50 Mg Im [facility] 9429-0108-87 [place] Reviewed 01/21/2016 12:00 AM ECG MONIT/REPRT UP TO 48 HRS Returned 08/02/2011 12:00 AM THER/PROPH/DIAG INJ SC/IM Reviewed 08/02/2011 12:00 AM Decadron 1 mg [facility]#[id number] (Jr) Reviewed 08/02/2011 12:00 AM Depo-Medrol 80 mg [facility]#[id number]-[place] Reviewed 03/05/2016 12:00 AM COMPLETE CBC W/AUTO DIFF WBC Reviewed 03/05/2016 12:00 AM STREP A ASSAY W/OPTIC Reviewed 03/05/2016 12:00 AM C-REACTIVE PROTEIN Reviewed 03/18/2016 12:00 AM [facility] MEDICARE - flu vaccine administration [...] Reviewed 09/27/2011 12:00 AM Depo-Medrol 80 mg ND#[id number]-Gqsqkrhm Reviewed 09/27/2011 12:00 AM Depo-Medrol 40 mg [facility]#[id number] Reviewed 07/06/2016 12:00 AM CHEST X-RAY 4/> [...] Reviewed 12/23/2011 12:00 AM Decadron 1 mg NDC#[id number] (Jr) Reviewed 12/23/2011 12:00 AM Depo-Medrol 80 mg NDC#[id number]-Zrewrdro Reviewed 11/02/2016 11:45 AM URINALYSIS AUTO W/O [...] Reviewed 02/09/2012 12:00 AM Decadron 1 mg NDC#[id number] (Jr) Reviewed 02/09/2012 12:00 AM Depo-Medrol 80 mg NDC#[id number]-Rgqwpzoj Reviewed 02/21/2017 12:00 AM CULTURE OTHR SPECIMN AEROBIC Returned 02/21/2017 12:00 AM INFLUENZA ASSAY W/OPTIC Returned 02/23/2017 12:00 AM COMPLETE CBC W/AUTO DIFF WBC Reviewed 02/23/2017 12:00 AM X-RAY EXAM OF KNEE 3 Returned 03/15/2012 12:00 AM N BLOCK INJ OCCIPITAL Reviewed 03/15/2012 12:00 AM Kenalog Aj-[address]-20 ANNA Reviewed 04/11/2012 12:00 AM COMPLETE CBC W/AUTO DIFF WBC Reviewed 04/11/2012 12:00 AM COMPREHEN METABOLIC PANEL Reviewed 04/11/2012 12:00 AM LIPID PANEL Reviewed 04/11/2012 12:00 AM ASSAY THYROID STIM HORMONE Reviewed 04/11/2012 12:00 AM DESTRUCT PREMALG LES 2-14 Reviewed 06/20/2012 12:00 AM THER/PROPH/DIAG INJ SC/IM Reviewed 06/20/2012 12:00 AM Decadron, Per 1 Mg [place]# [address]-95 Reviewed 06/20/2012 12:00 AM Depo-Medrol, Per 80 Mg NDC#6966-2445-24 Reviewed 09/06/2012 12:00 AM N BLOCK INJ OCCIPITAL Reviewed 09/06/2012 12:00 AM Kenalog Qt-[address]-20 ANNA Reviewed 09/06/2012 12:00 AM X-RAY EXAM RIBS UNI 2 VIEWS Reviewed 09/26/2012 12:00 AM THER/PROPH/DIAG INJ SC/IM Reviewed 09/26/2012 12:00 AM Decadron, Per 1 Mg NDC# [address]-09 Reviewed 09/26/2012 12:00 AM Depo-Medrol, Per 80 Mg NDC#5407-7511-12 Reviewed 10/03/2012 12:00 AM URINALYSIS AUTO W/O SCOPE Reviewed 10/03/2012 12:00 AM THER/PROPH/DIAG INJ SC/IM Reviewed 10/03/2012 12:00 AM Toradol 60 Mg NDC#7954-3147-76 Reviewed 10/03/2012 12:00 AM Phenergan, 25Mg NDC#9289-0873-43 Reviewed 10/19/2012 12:00 AM N BLOCK INJ OCCIPITAL Reviewed 10/19/2012 12:00 AM Kenalog, Per 10 Mg [facility]#7160-7856-51 Reviewed 10/19/2012 12:00 AM Toradol 30 Mg [facility]#3580-4632-48 Reviewed 10/19/2012 12:00 AM THER/PROPH/DIAG INJ SC/IM Reviewed 10/31/2012 12:00 AM COMPLETE CBC W/AUTO DIFF WBC Reviewed 10/31/2012 12:00 AM COMPREHEN METABOLIC PANEL Reviewed 10/31/2012 12:00 AM LIPID PANEL Reviewed 10/31/2012 12:00 AM ELECTROCARDIOGRAM COMPLETE Reviewed 11/03/2012 12:[address] THORAX W/O & W/DYE Reviewed 11/08/2012 12:00 AM N BLOCK INJ OCCIPITAL Reviewed 11/08/2012 12:00 AM Kenalog Hg-[address]-20 ANNA Reviewed 11/27/2012 12:00 AM COMPLETE CBC [...] Per 1 Mg [facility]# [address]-45 Reviewed 01/25/2013 12:00 AM Depo-Medrol, Per 80 Mg [facility]#2414-2756-68 Reviewed 01/26/2013 12:00 AM IMMUNOTHERAPY ONE INJECTION [...] Per 1 Mg [facility]# [address]-62 Reviewed 05/16/2013 12:00 AM Depo-Medrol, Per 80 Mg [facility]#7694-7058-52 Reviewed 05/31/2013 12:00 AM IMMUNOTHERAPY INJECTIONS Reviewed 06/08/2013 12:00 AM IMMUNOTHERAPY INJECTIONS Reviewed 06/14/2013 12:00 AM IMMUNOTHERAPY INJECTIONS Reviewed 06/28/2013 12:00 AM IMMUNOTHERAPY INJECTIONS Reviewed 07/12/2013 12:00 AM X-RAY EXAM RIBS UNI 2 VIEWS Reviewed 07/18/2013 12:00 AM Toradol 60 Mg [facility]#0336-7134-46 Reviewed 07/18/2013 12:00 AM THER/PROPH/DIAG INJ SC/IM Reviewed 08/23/2013 12:00 AM COMPLETE CBC W/AUTO DIFF WBC Reviewed 08/23/2013 12:00 AM COMPREHEN METABOLIC PANEL Reviewed 08/23/2013 12:00 AM LIPID PANEL Reviewed 08/31/2013 12:00 AM X-RAY EXAM OF LOWER LEG Reviewed 09/04/2013 12:00 AM IMMUNOTHERAPY INJECTIONS Reviewed 09/14/2013 12:00 AM THER/PROPH/DIAG INJ SC/IM Reviewed 09/14/2013 12:00 AM Decadron, Per 1 Mg [facility]# [address]-03 Reviewed 09/14/2013 12:00 AM Depo-Medrol, Per 80 Mg [facility]#1308-9272-14 Reviewed 09/20/2013 12:00 AM IMMUNOTHERAPY INJECTIONS Reviewed [...] INJ OCCIPITAL Reviewed 12/10/2009 12:00 AM Kenalog Oq-[address]-20 ANNA Reviewed 12/16/2009 12:00 AM HIV-1ANTIBODY Reviewed 12/16/2009 12:00 AM COMPLETE CBC W/AUTO DIFF WBC Reviewed 12/16/2009 12:00 AM METABOLIC PANEL TOTAL CA Reviewed 12/16/2009 12:00 AM Type and screen Reviewed 12/16/2009 12:00 AM PROTHROMBIN TIME Reviewed 12/16/2009 12:00 AM THROMBOPLASTIN TIME PARTIAL Reviewed 03/18/2010 12:00 AM DRAIN/INJ JOINT/BURSA W/O US Reviewed 03/18/2010 12:00 AM Kenalog Wx-[address]-20 ANNA Reviewed 11/21/2013 12:00 AM RADEX HAND MINIMUM 3 VIEWS Reviewed 06/03/2010 12:00 AM INJ TRIGGER POINT 1/2 MUSCL Reviewed 06/03/2010 12:00 AM Kenalog per 10Mg [facility]#[address]-85(Niall) Reviewed 12/05/2013 12:00 AM COMPLETE CBC W/AUTO [...] AM Kenalog per 10Mg Im-[facility]#[address]-91(Niall) Reviewed 2014 12:00 AM COMPLETE CBC W/AUTO [...] INJ OCCIPITAL Reviewed 10/01/2010 12:00 AM Kenalog Kk-[address]-20 ANNA Reviewed 07/25/2014 12:00 AM THER/PROPH/DIAG INJ [...] 141 Influenza 04/24/2014 sanofi pasteur PMC Fluzone [id number] Intramuscular Left Upper Arm 02/27/2014 01/15/2014 141 Influenza 02/13/2015 sanofi pasteur PMC Fluzone [id number] Intramuscular Left Deltoid 02/13/2015 01/03/2015 140 Tdap 06/06/2015 [employer] SKB BOOSTRIX [id number] Intramuscular Left Deltoid 06/06/2015 07/23/2014 115 Influenza 03/18/2016 sanofi pasteur PMC Fluzone [id number] Intramuscular Left Deltoid 03/17/2016 01/03/2015 141 History [...] Chronic pain syndrome Feb 15 2017 2:08PM Payers Insurance Name Company Name Plan Name Plan Number Policy Number Policy Group Number Start Date Medicare C Medicare C [id number] N/A [facility] Comm [id number] N/A Medicare Part A Medicare - Lab/Xray [id number] N/A Medicare Part B Medicare Of [place] [id number] Monday, February 28, 2000 [place] [employer] [place] [employer] [place] [id number] Tuesday, November 10, 2009 Medicare Part A Medicare Part A [id number] N/A [place] [employer] Specialist Prog - R[facility] [place] [employer] Information Specialist Prog - [facility] [id number] May [facility] Comm Plan of [id number] Wednesday, May 30, 2012 History of Encounters Visit Date Visit Type Provider 03/05/2017 Office visit Lena Chaves LAB ANALYST 02/23/2017 Office visit Symone PolkBarbara GibbsSan [place]ita LAB ANALYST 02/21/2017 Office visit Heena Dumont MD 02/15/2017 Office visit Heena Dumont MD 02/02/2017 Office visit Heena Dumont MD 01/07/2017 Office visit Riccardo Cardoza MD 01/03/2017 Office visit Heena Dumont MD 12/15/2016 Office visit Kaylynn Mendez LAB ANALYST 12/02/2016 Office visit Heena Dumont MD 11/23/2016 [facility] Eliseo Hoskins MD 11/23/2016 Office visit Kaylynn Mendez LAB ANALYST 11/17/2016 Office visit Kaylynn Mendez LAB ANALYST 11/05/2016 Office visit Riccardo Cardoza MD 11/02/2016 Office visit Heena Dumont MD 10/06/2016 Office visit Kaylynn Mendez LAB ANALYST 09/22/2016 Office visit Heena Dumont MD 09/09/2016 Office visit Kaylynn Mendez LAB ANALYST 08/27/2016 Office visit Riccardo Cardoza MD 08/26/2016 Office visit Heena Dumont MD 07/09/2016 Office visit Riccardo Cardoza MD 07/06/2016 Office visit Heena Dumont MD 06/18/2016 Office visit Kaylynn Mendez LAB ANALYST 06/07/2016 Office visit Sundeep Russell LAB ANALYST 06/04/2016 Office visit Heena Dumont MD 05/13/2016 Office visit Heena Dumont MD 05/03/2016 Office visit Heena Dumont MD 04/26/2016 Office visit Kaylynn Mendez LAB ANALYST 04/14/2016 Office visit Heena Dumont MD 04/13/2016 Office visit Kaylynn Mendez LAB ANALYST 04/02/2016 Office visit Lena El LAB ANALYST 04/02/2016 Office visit Heena Dumont MD 03/26/2016 Office visit Yesica Falcon LAB ANALYST 03/17/2016 Office visit Heena Dumont MD 03/05/2016 Office visit Kaylynn Mendez LAB ANALYST 02/16/2016 Office visit Heena Dumont MD 02/14/2016 Office visit Na Jones LAB ANALYST 01/16/2016 Office visit Heena Dumont MD 12/16/2015 Office visit Heena Dumont MD 11/24/2015 Office visit Kaylynn Mendez LAB ANALYST 11/18/2015 Office visit Heena Dumont MD 11/03/2015 Office visit Sundeep Russell LAB ANALYST 10/20/2015 Office visit Kaylynn Walker LAB ANALYST 09/23/2015 Office visit Kaylynn Walker LAB ANALYST 09/16/[address] Pepe Figueroa MD 09/02/2015 Office visit Kaylynn Walker LAB ANALYST 09/01/2015 Office visit Kaylynn Walker LAB ANALYST 07/30/2015 Office visit Heena Dumont MD 07/15/2015 Office visit Kaylynn Walker LAB ANALYST 07/04/2015 Office visit Heena Dumont MD 06/06/2015 Office visit Heena Dumont MD 06/06/2015 Office visit Kaylynn Walker LAB ANALYST 06/02/2015 Office visit Kaylynn Walker LAB ANALYST 05/26/2015 Office visit Kaylynn Walker LAB ANALYST 05/20/2015 Office visit Kaylynn Andrea LAB ANALYST 05/08/2015 Office visit Heena Dumont MD 05/06/2015 Office visit Kaylynn Walker LAB ANALYST 04/29/2015 Office visit Kaylynn Walker LAB ANALYST 03/27/2015 Voided Brittni Yanez LAB ANALYST 03/21/2015 Office visit Heena Dumont MD 03/12/2015 Office visit Kaylynn Mendez LAB ANALYST 02/26/2015 Office visit Brittni Yanez LAB ANALYST 02/13/2015 Office visit Heena Dumont MD 01/15/2015 Office visit Brittni Yanez LAB ANALYST 01/13/2015 Office visit Heena Dumont MD 01/08/[address] Carol Fowler MD 01/01/2015 Office visit Brittni Yanez LAB ANALYST 12/13/2014 Office visit Heena Dumont MD 11/27/2014 Office visit Kaylynn Mendez LAB ANALYST 11/14/2014 Office visit Heena Dumont MD 10/18/2014 Office visit Heena Dumont MD 10/17/2014 Hospital John Hoskins MD 10/09/2014 Office visit Heena Dumont MD 09/25/2014 Office visit Heena Dumont MD 09/17/2014 Office visit Kaylynn Mendez LAB ANALYST 09/04/2014 Office visit Heena Dumont MD 08/28/2014 Office visit Kaylynn Mendez LAB ANALYST 08/23/2014 [facility] John Hoskins MD 08/01/2014 Office visit Kaylynn Mendez LAB ANALYST 07/29/2014 Office visit Heena Dumont MD 07/25/2014 Nurse visit Heena Dumont MD 07/17/2014 Office visit Kaylynn Mendez LAB ANALYST 07/11/2014 Office visit Heena Dumont MD 07/01/2014 Office visit Heena Dumont MD 06/25/2014 Office visit Kaylynn Mendez LAB ANALYST 06/12/2014 Office visit Kaylynn Mendez LAB ANALYST 06/06/2014 Office visit Kaylynn Mendez LAB ANALYST 05/27/2014 Office visit Heena Dumont MD 04/20/2014 Office visit Yesica Falcon LAB ANALYST 03/29/2014 Office visit Na Jones LAB ANALYST 03/15/2014 Office visit Heena Dumont MD 2014 Office visit Heena Dumont MD 2014 [facility] Eliseo Hoskins MD 02/27/2014 Nurse visit Heena Dumont MD 02/13/2014 Office visit Lena El LAB ANALYST 02/07/2014 Office visit Heena Dumont MD 02/03/2014 Office visit Na Jones LAB ANALYST 01/30/2014 Office visit Kaylynn Mendez LAB ANALYST 01/24/2014 Office visit Sundeep Russell LAB ANALYST 01/16/2014 Office visit Kaylynn Mendez LAB ANALYST 01/10/2014 Nurse visit Kaylynn Mendez LAB ANALYST 01/08/2014 Office visit Kaylynn Mendez LAB ANALYST 12/05/2013 Office visit Kaylynn Mendez LAB ANALYST 11/21/2013 Office visit Kaylynn Mendez LAB ANALYST 10/23/2013 Office visit Brittni Yanez LAB ANALYST 10/17/2013 Nurse visit Heena Dumont MD 10/12/2013 Office visit Kaylynn Mendez LAB ANALYST 10/02/2013 Office visit Heena Dumont MD 09/20/2013 Nurse visit Kaylynn Mendez LAB ANALYST 09/20/2013 Voided Heena Dumont MD 09/14/2013 Office visit Kaylynn Mendez LAB ANALYST 09/05/2013 Office visit Sundeep Russell LAB ANALYST 09/04/2013 Nurse visit Kaylynn Walker LAB ANALYST 08/31/2013 Office visit Kaylynn Mendez LAB ANALYST 08/23/2013 Office visit Heena Dumont MD 08/10/2013 Office visit Kaylynn Mendez LAB ANALYST 07/25/2013 Office visit Kaylynn Walker LAB ANALYST 07/18/2013 Office visit Kaylynn Walker LAB ANALYST 07/12/2013 Office visit Kaylynn Walker LAB ANALYST 06/28/2013 Nurse visit Kaylynn Walker LAB ANALYST 06/14/2013 Nurse visit Kaylynn Walker LAB ANALYST 06/08/2013 Nurse visit Kaylynn Walker LAB ANALYST 05/31/2013 Nurse visit Chadd Norris DO 05/18/2013 Office visit Terese Davidson MD 05/16/2013 Office visit Kaylynn Walker LAB ANALYST 05/09/2013 Office visit Kaylynn Mendez LAB ANALYST 04/29/2013 [facility] John Hoskins MD 04/25/2013 Nurse visit Kaylynn Walker LAB ANALYST 04/17/2013 Office visit Kaylynn Walker LAB ANALYST 04/03/2013 Nurse visit Kaylynn Walker LAB ANALYST 04/03/2013 Office visit Terese Davidson MD 03/28/2013 Office visit Sundeep Russell LAB ANALYST 03/21/2013 Office visit Kaylynn Mendez LAB ANALYST 03/20/2013 Office visit Terese Davidson MD 03/14/2013 Nurse visit Kaylynn Walker LAB ANALYST 03/05/2013 Nurse visit Kaylynn Walker LAB ANALYST 02/19/2013 Office visit Terese Davidson MD 02/16/2013 Nurse visit Kaylynn Mnedez LAB ANALYST 02/09/2013 Office visit Sundeep Russell LAB ANALYST 02/08/2013 Nurse visit Kaylynn Walker LAB ANALYST 02/01/2013 Nurse visit Kaylynn Walker LAB ANALYST 01/26/2013 Nurse visit Sabrina Andrea MAINTENANCE AND UTILITIES SUPERVISOR 01/25/2013 Office visit Kaylynn Mendez LAB ANALYST 01/22/2013 Office visit Yoan Castaneda MD 01/18/2013 Nurse visit Kaylynn Mendez LAB ANALYST 01/11/2013 Nurse visit Kaylynn Walker LAB ANALYST 01/05/2013 Nurse visit Kaylynn Andrea LAB ANALYST 12/29/2012 Office visit Kaylynn Walker LAB ANALYST 11/27/2012 Office visit Kaylynn Mendez LAB ANALYST 11/08/2012 Office visit Odell Tierney MD 11/08/2012 Voided Odell Tierney MD 11/07/2012 Office visit Kaylynn Mendez LAB ANALYST 10/31/2012 [facility] John Hoskins MD 10/31/2012 Office visit Kaylynn Mendez LAB ANALYST 10/19/2012 Office visit Genoveva Ayala LAB ANALYST 10/10/2012 Office visit Kaylynn Mendez LAB ANALYST 10/03/2012 Office visit Kaylynn Walker LAB ANALYST 09/26/2012 Office visit Kaylynn Walker LAB ANALYST 09/06/2012 Office visit Kaylynn Mendez LAB ANALYST 09/06/2012 Office visit Odell Tierney MD 08/31/2012 Voided Kaylynn Mendez LAB ANALYST 07/28/2012 Office visit Kaylynn Mendez LAB ANALYST 07/27/2012 Office visit David Joyner DO 07/20/2012 [facility] David Joyner DO 07/13/2012 [facility] David Joyner DO 07/11/2012 Office visit Kaylynn Mendez LAB ANALYST 06/27/2012 [facility] Odell Tierney MD 06/21/2012 Office visit David Joyner DO 06/21/2012 Office visit Odell Tierney MD 06/20/2012 Office visit Brittni Yanez LAB ANALYST 06/06/2012 Office visit Odell Tierney MD 05/03/2012 Office visit Kaylynn Mendez LAB ANALYST 04/28/2012 Office visit Brittni Yanez LAB ANALYST 04/11/2012 Office visit Kaylynn Mendez LAB ANALYST 04/06/2012 [facility] John Hoskins MD 03/30/2012 Office visit Kaylynn Mendez LAB ANALYST 03/15/2012 Office visit Kaylynn Andrea LAB ANALYST 03/15/2012 Office visit Odell Tierney MD 02/09/2012 Office visit Kaylynn Andrea LAB ANALYST 12/23/2011 Office visit Kaylynn Walker LAB ANALYST 11/02/2011 Office visit Kaylynn Walker LAB ANALYST 10/14/2011 Office visit Kaylynn Walker LAB ANALYST 09/27/2011 Office visit Kaylynn Walker LAB ANALYST 08/19/2011 Hospital John Hoskins MD 08/18/2011 [facility] John Hoskins MD 08/18/2011 Office visit Kaylynn Mendez LAB ANALYST 08/02/2011 Office visit Kaylynn Mendez LAB ANALYST 07/08/2011 Office visit Kaylynn Andrea LAB ANALYST 07/05/2011 Office visit Odell Tierney MD 06/15/2011 Office visit Kaylynn Mendez LAB ANALYST 05/14/2011 Office visit Kaylynn Andrea LAB ANALYST 05/11/2011 Office visit Odell Tierney MD 04/28/2011 Office visit Kaylynn Mendez LAB ANALYST 03/02/2011 Office visit Chadd Norris DO [...]
--- OUTSIDE RECORDS SUMMARY | 2018-05-10 00:47 | XMS REPORT ---
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 [employer] Lancets 33 [facility] 01/21/2016 use as directed cetirizine 10 [...] route every 12 hours for 30 days atorvastatin 80 mg oral tablet 09/24/2016 03/23/2017 take 1 tablet (80 mg) by oral route once daily for 30 days Riddel said to increase from 40 to 80 due to recent Lipid panel Name Start Date Expiration Date SIG Comments [...] 08/27/2014 use as directed for 99 days [place] 5-325 mg oral tablet 06/17/2014 06/27/2014 take [...] a day as needed for 30 days zijfcjot-hoiczcaue-NQ 3.5-10,000-1 mg/mL-unit/mL-% otic drops,suspension 201401/08/2015 instill 4 [...] Ok for similiar substitution or individual components. ezveuncj-uvzwycwsa-IZ 3.5-10,000-1 mg/mL-unit/mL-% otic drops,suspension 201607/23/2016 instill 4 [...] (11)- 1 mg (42) oral tablets,dose pack 3/21/ 2012 11/02/2011 take as directed Vicodin 5-500 mg oral [...] Reviewed 04/28/2011 12:00 AM Decadron 1 mg ND#[id number] (Jr) Reviewed 04/28/2011 12:00 AM Depo-Medrol 80 mg NDC#[id number]-Iinlxuyl Reviewed 09/02/2015 12:00 AM Toradol 60 Mg NDC#0847-4165-51 Reviewed 09/02/2015 12:00 AM Phenergan, Up to 50 Mg RHC Medicaid Reviewed 09/16/2015 12:00 AM Toradol 60 Mg NDC#2373-8012-92 Reviewed 09/16/2015 12:00 AM Phenergan Up to 50 mg RHC Medicare Reviewed 05/11/2011 12:00 AM N BLOCK INJ OCCIPITAL Reviewed 05/11/2011 12:00 AM Kenalog Os-[address]-20 ANNA Reviewed 11/13/2015 12:00 AM ASSAY OF [...] AM Toradol,15mg [facility]#[id number], [place] Reviewed 07/08/2011 12:00 AM Phenergan 50 Mg Im [facility] 1789-1866-95 [place] Reviewed 01/21/2016 12:00 AM ECG MONIT/REPRT UP TO 48 HRS Returned 08/02/2011 12:00 AM THER/PROPH/DIAG INJ SC/IM Reviewed 08/02/2011 12:00 AM Decadron [address] [facility]#[id number] (Jr) Reviewed 08/02/2011 12:00 AM Depo-Medrol [address] [facility]#[id number]-Iboxjmyz Reviewed 03/05/2016 12:00 AM COMPLETE CBC W/AUTO [...] Reviewed 09/27/2011 12:00 AM Depo-Medrol 80 mg ND#[id number]-Yfzulxwk Reviewed 07/06/2016 12:00 AM CHEST X-RAY 4/> VIEWS Returned 10/14/2011 12:00 AM X-RAY EXAM OF ABDOMEN Reviewed 10/14/2011 12:00 AM URINALYSIS AUTO W/O SCOPE Reviewed 08/09/2016 12:00 AM INJ FORAMEN EPIDURAL L/S Reviewed 08/09/2016 12:00 AM INJECT SPINE LUMBAR/SACRAL Reviewed 08/09/2016 12:00 AM INJECT SPINE CERV/THORACIC Reviewed 09/09/2016 12:[address] HEAD/BRAIN W/O DYE Returned 09/22/2016 12:00 AM COMPLETE CBC W/AUTO DIFF WBC Returned 09/22/2016 12:00 AM COMPREHEN METABOLIC PANEL Returned 09/22/2016 12:00 AM LIPID PANEL Returned 09/22/2016 12:00 AM GLYCOSYLATED HEMOGLOBIN TEST Returned 09/22/2016 12:00 AM ALBUMIN URINE MICROALBUMIN QUANTIATIVE Returned 09/22/2016 12:00 AM ASSAY OF MAGNESIUM Returned 12/23/2011 12:00 AM THER/PROPH/DIAG INJ SC/IM Reviewed 12/23/2011 12:00 AM Decadron 1 mg NDC#[id number] (Jr) Reviewed 12/23/2011 12:00 AM Depo-Medrol 80 mg NDC#[id number]-Irrwmcxo Reviewed 02/09/2012 12:00 AM THER/PROPH/DIAG INJ SC/IM Reviewed 02/09/2012 12:00 AM Decadron 1 mg NDC#[id number] (Jr) Reviewed 02/09/2012 12:00 AM Depo-Medrol 80 mg NDC#[id number]-Ypzzqqhw Reviewed 03/15/2012 12:00 AM N BLOCK INJ OCCIPITAL Reviewed 03/15/2012 12:00 AM Kenalog Uw-[address]-20 ANNA Reviewed 04/11/2012 12:00 AM COMPLETE CBC W/AUTO DIFF WBC Reviewed 04/11/2012 12:00 AM COMPREHEN METABOLIC PANEL Reviewed 04/11/2012 12:00 AM LIPID PANEL Reviewed 04/11/2012 12:00 AM ASSAY THYROID STIM HORMONE Reviewed 06/20/2012 12:00 AM THER/PROPH/DIAG INJ SC/IM Reviewed 06/20/2012 12:00 AM Decadron, Per 1 Mg NDC# [address]-88 Reviewed 06/20/2012 12:00 AM Depo-Medrol, Per 80 Mg NDC#1929-0767-10 Reviewed 09/06/2012 12:00 AM N BLOCK INJ OCCIPITAL Reviewed 09/06/2012 12:00 AM Kenalog Kp-[address]-20 ANNA Reviewed 09/06/2012 12:00 AM X-RAY EXAM RIBS UNI 2 VIEWS Reviewed 09/26/2012 12:00 AM THER/PROPH/DIAG INJ SC/IM Reviewed 09/26/2012 12:00 AM Decadron, Per [address] [facility]# [address]-15 Reviewed 09/26/2012 12:00 AM Depo-Medrol, Per [address] [facility]#1293-2493-30 Reviewed 10/03/2012 12:00 AM URINALYSIS AUTO W/O SCOPE Reviewed 10/03/2012 12:00 AM THER/PROPH/DIAG INJ SC/IM Reviewed 10/03/2012 12:00 AM Toradol [address] [facility]#2195-1999-15 Reviewed 10/03/2012 12:00 AM Phenergan, 25Mg [facility]#5763-9620-84 Reviewed 10/19/2012 12:00 AM N BLOCK INJ OCCIPITAL Reviewed 10/19/2012 12:00 AM Kenalog, Per [address] [facility]#0488-8250-42 Reviewed 10/19/2012 12:00 AM Toradol [address] [facility]#4086-7237-74 Reviewed 10/19/2012 12:00 AM THER/PROPH/DIAG INJ SC/IM Reviewed 10/31/2012 12:00 AM COMPLETE CBC W/AUTO DIFF WBC Reviewed 10/31/2012 12:00 AM COMPREHEN METABOLIC PANEL Reviewed 10/31/2012 12:00 AM LIPID PANEL Reviewed 11/03/2012 12:[address] THORAX W/O & W/DYE Reviewed 11/08/2012 12:00 AM N BLOCK INJ OCCIPITAL Reviewed 11/08/2012 12:00 AM Kenalog Tb-[address]-20 ANNA Reviewed 11/27/2012 12:00 AM COMPLETE CBC [...] Mg [facility]# [address]-89 Reviewed 01/25/2013 12:00 AM Depo-Medrol, Per [address] [facility]#2005-6967-39 Reviewed 01/26/2013 12:00 AM IMMUNOTHERAPY INJECTIONS Reviewed [...] Mg [facility]# [address]-78 Reviewed 05/16/2013 12:00 AM Depo-Medrol, Per [address] [facility]#6083-3889-39 Reviewed 05/31/2013 12:00 AM IMMUNOTHERAPY INJECTIONS Reviewed 06/08/2013 12:00 AM IMMUNOTHERAPY INJECTIONS Reviewed 06/14/2013 12:00 AM IMMUNOTHERAPY INJECTIONS Reviewed 06/28/2013 12:00 AM IMMUNOTHERAPY INJECTIONS Reviewed 07/12/2013 12:00 AM X-RAY EXAM RIBS UNI 2 VIEWS Reviewed 07/18/2013 12:00 AM Toradol [address] [facility]#0229-8949-47 Reviewed 07/18/2013 12:00 AM THER/PROPH/DIAG INJ SC/IM [...] Mg [facility]# [address]-20 Reviewed 09/14/2013 12:00 AM Depo-Medrol, Per [address] [facility]#6186-2943-50 Reviewed 09/20/2013 12:00 AM IMMUNOTHERAPY INJECTIONS Reviewed [...] INJ OCCIPITAL Reviewed 12/10/2009 12:00 AM Kenalog Xd-[address]-20 ANNA Reviewed 12/16/2009 12:00 AM HIV-1ANTIBODY Reviewed 12/16/2009 12:00 AM COMPLETE CBC W/AUTO DIFF WBC Reviewed 12/16/2009 12:00 AM METABOLIC PANEL TOTAL CA Reviewed 12/16/2009 12:00 AM Type and screen Reviewed 12/16/2009 12:00 AM PROTHROMBIN TIME Reviewed 12/16/2009 12:00 AM THROMBOPLASTIN TIME PARTIAL Reviewed 03/18/2010 12:00 AM DRAIN/INJ JOINT/BURSA W/O US Reviewed 03/18/2010 12:00 AM Kenalog Rr-[address]-20 ANNA Reviewed 11/21/2013 12:00 AM RADEX HAND MINIMUM 3 VIEWS Reviewed 06/03/2010 12:00 AM INJ TRIGGER POINT 1/2 MUSCL Reviewed 06/03/2010 12:00 AM Kenalog per 10Mg [facility]#[address]-64(Niall) Reviewed 12/05/2013 12:00 AM COMPLETE CBC W/AUTO [...] 07/23/2010 12:00 AM Kenalog per 10Mg [facility]#[address]-54(Niall) Reviewed 2014 12:00 AM COMPLETE CBC W/AUTO [...] INJ OCCIPITAL Reviewed 10/01/2010 12:00 AM Kenalog Ym-[address]-20 ANNA Reviewed 07/25/2014 12:00 AM THER/PROPH/DIAG INJ [...] Quant,IgM <0.80 RMSF , IgG, EIA Negative [facility] Spotted [...] 141 Influenza 04/24/2014 sanofi pasteur PMC Fluzone [id number] Intramuscular Left Upper Arm 02/27/2014 01/15/2014 141 Influenza 02/13/2015 sanofi pasteur PMC Fluzone [id number] Intramuscular Left Deltoid 02/13/2015 01/03/2015 140 Tdap 06/06/2015 TeraView SKB BOOSTRIX [id number] Intramuscular Left Deltoid 06/06/2015 07/23/2014 115 Influenza 03/18/2016 [facility] Fluzone [id number] Intramuscular Left Deltoid 03/17/2016 01/03/2015 141 History [...] Feb 6 2011 1:58PM Muscle Spasm b 2011 1:58PM Headache b 2011 1:38PM Heart [...] 10:05AM Hyperlipidemia, unspecified Sep 24 2016 8:48AM Payers Insurance Name Company Name Plan Name Plan Number Policy Number Policy Group Number Start Date Medicare RHC Medicare RHC [id number] N/A [facility] RHC Comm [id number] N/A Medicare Part A Medicare - Lab/Xray [id number] N/A Medicare Part B Medicare [place] [id number] Monday, February 28, 2000 [place] [employer] [place] [employer] [place] [id number] Tuesday, November 10, 2009 Medicare Part A Medicare Part A [id number] N/A [place] [employer] Prog - RHC [place] [employer] Prog - RHC [id number] May [facility] Comm Plan of [id number] Wednesday, May 30, 2012 History of Encounters Visit Date Visit Type Provider 09/22/2016 Office visit Heena Dumont MD 09/09/2016 Office visit Kaylynn Mendez WAITER AND CASHIER 08/27/2016 Office visit Riccardo Cardoza MD 08/26/2016 Office visit Heena Dumont MD 07/09/2016 Office visit Riccardo Cardoza MD 07/06/2016 Office visit Heena Dumont MD 06/18/2016 Office visit Kaylynn Mendez WAITER AND CASHIER 06/07/2016 Office visit Sundeep Russell WAITER AND CASHIER 06/04/2016 Office visit Heena Dumont MD 05/13/2016 Office visit Heena Dumont MD 05/03/2016 Office visit Heena Dumont MD 04/26/2016 Office visit Kaylynn Mendez WAITER AND CASHIER 04/14/2016 Office visit Heena Dumont MD 04/13/2016 Office visit Kaylynn Mendez WAITER AND CASHIER 04/02/2016 Office visit Lena El WAITER AND CASHIER 04/02/2016 Office visit Heena Dumont MD 03/26/2016 Office visit Yesica Falcon WAITER AND CASHIER 03/17/2016 Office visit Heena Dumont MD 03/05/2016 Office visit Kaylynn Mendez WAITER AND CASHIER 02/16/2016 Office visit Heena Dumont MD 02/14/2016 Office visit Na Jones WAITER AND CASHIER 01/16/2016 Office visit Heena Dumont MD 12/16/2015 Office visit Heena Dumont MD 11/24/2015 Office visit Kaylynn Mendez WAITER AND CASHIER 11/18/2015 Office visit Heena Dumont MD 11/03/2015 Office visit Sundeep Russell WAITER AND CASHIER 10/20/2015 Office visit Kaylynn Mendez WAITER AND CASHIER 09/23/2015 Office visit Kaylynn Mendez WAITER AND CASHIER 09/16/[address] Pepe Figueroa MD 09/02/2015 Office visit Kaylynn Mendez WAITER AND CASHIER 09/01/2015 Office visit Kaylynn Mendez WAITER AND CASHIER 07/30/2015 Office visit Heena Dumont MD 07/15/2015 Office visit Kaylynn Mendez WAITER AND CASHIER 07/04/2015 Office visit Heena Dumont MD 06/06/2015 Office visit Heena Dumont MD 06/06/2015 Office visit Kaylynn Mendez WAITER AND CASHIER 06/02/2015 Office visit Kaylynn Mendez WAITER AND CASHIER 05/26/2015 Office visit Kaylynn Mendez WAITER AND CASHIER 05/20/2015 Office visit Kaylynn Mendez WAITER AND CASHIER 05/08/2015 Office visit Heena Dumont MD 05/06/2015 Office visit Kaylynn Mendez WAITER AND CASHIER 04/29/2015 Office visit Kaylynn Mendez WAITER AND CASHIER 03/27/2015 Voided Brittni Yanez WAITER AND CASHIER 03/21/2015 Office visit Heena Dumont MD 03/12/2015 Office visit Kaylynn Mendez WAITER AND CASHIER 02/26/2015 Office visit Brittni Yanez WAITER AND CASHIER 02/13/2015 Office visit Heena Dumont MD 01/15/2015 Office visit Brittni Yanez WAITER AND CASHIER 01/13/2015 Office visit Heena Dumont MD 01/08/[address] Carol Fowler MD 01/01/2015 Office visit Brittni Yanez WAITER AND CASHIER 12/13/2014 Office visit Heena Dumont MD 11/27/2014 Office visit Kaylynn Mendez WAITER AND CASHIER 11/14/2014 Office visit Heena Dumont MD 10/18/2014 Office visit Heena Dumont MD 10/17/2014 [facility] John Hoskins MD 10/09/2014 Office visit Heena Dumont MD 09/25/2014 Office visit Heena Dumont MD 09/17/2014 Office visit Kaylynn Mendez WAITER AND CASHIER 09/04/2014 Office visit Heena Dumont MD 08/28/2014 Office visit Kaylynn Mendez WAITER AND CASHIER 08/23/2014 [facility] John Hoskins MD 08/01/2014 Office visit Kaylynn Mendez WAITER AND CASHIER 07/29/2014 Office visit Heena Dumont MD 07/25/2014 Nurse visit Heena Dumont MD 07/17/2014 Office visit Kaylynn Mendez WAITER AND CASHIER 07/11/2014 Office visit Heena Dumont MD 07/01/2014 Office visit Heena Dumont MD 06/25/2014 Office visit Kaylynn Mendez WAITER AND CASHIER 06/12/2014 Office visit Kaylynn Mendez WAITER AND CASHIER 06/06/2014 Office visit Kaylynn Mendez WAITER AND CASHIER 05/27/2014 Office visit Heena Dumont MD 04/20/2014 Office visit Yesica Falcon WAITER AND CASHIER 03/29/2014 Office visit Na Jones WAITER AND CASHIER 03/15/2014 Office visit Heena Dumont MD 2014 Office visit Heena Dumont MD 2014 [facility] John Hoskins MD 02/27/2014 Nurse visit Heena Dumont MD 02/13/2014 Office visit Lena El WAITER AND CASHIER 02/07/2014 Office visit Heena Dumont MD 02/03/2014 Office visit Na Jones WAITER AND CASHIER 01/30/2014 Office visit Kaylynn Mendez WAITER AND CASHIER 01/24/2014 Office visit Sundeep Russell WAITER AND CASHIER 01/16/2014 Office visit Kaylynn Mendez WAITER AND CASHIER 01/10/2014 Nurse visit Kaylynn Mendez WAITER AND CASHIER 01/08/2014 Office visit Kaylynn Mendez WAITER AND CASHIER 12/05/2013 Office visit Kaylynn Mendez WAITER AND CASHIER 11/21/2013 Office visit Kaylynn Mendez WAITER AND CASHIER 10/23/2013 Office visit Brittni Yanez WAITER AND CASHIER 10/17/2013 Nurse visit Heena Dumont MD 10/12/2013 Office visit Kaylynn Mendez WAITER AND CASHIER 10/02/2013 Office visit Heena Dumont MD 09/20/2013 Nurse visit Kaylynn Mendez WAITER AND CASHIER 09/20/2013 Voided Heena Dumont MD 09/14/2013 Office visit Kaylynn Walker WAITER AND CASHIER 09/05/2013 Office visit Sundeep Russell WAITER AND CASHIER 09/04/2013 Nurse visit Kaylynn Walker WAITER AND CASHIER 08/31/2013 Office visit Kaylynn Walker WAITER AND CASHIER 08/23/2013 Office visit Heena Dumont MD 08/10/2013 Office visit Kaylynn Walker WAITER AND CASHIER 07/25/2013 Office visit Kaylynn Walker WAITER AND CASHIER 07/18/2013 Office visit Kaylynn Walker WAITER AND CASHIER 07/12/2013 Office visit Kaylynn Walker WAITER AND CASHIER 06/28/2013 Nurse visit Kaylynn Walker WAITER AND CASHIER 06/14/2013 Nurse visit Kaylynn Walker WAITER AND CASHIER 06/08/2013 Nurse visit Kaylynn Walker WAITER AND CASHIER 05/31/2013 Nurse visit Chadd Norris DO 05/18/2013 Office visit Terese Davidson MD 05/16/2013 Office visit Kaylynn Walker WAITER AND CASHIER 05/09/2013 Office visit Kaylynn Mendez WAITER AND CASHIER 04/29/2013 [facility] John Hosknis MD 04/25/2013 Nurse visit Kaylynn Walker WAITER AND CASHIER 04/17/2013 Office visit Kaylynn Walker WAITER AND CASHIER 04/03/2013 Nurse visit Kaylynn Mendez WAITER AND CASHIER 04/03/2013 Office visit Terese Davidson MD 03/28/2013 Office visit Sundeep Russell WAITER AND CASHIER 03/21/2013 Office visit Kaylynn Mendez WAITER AND CASHIER 03/20/2013 Office visit Terese Davidson MD 03/14/2013 Nurse visit Kaylynn Walker WAITER AND CASHIER 03/05/2013 Nurse visit Kaylynn Mendez WAITER AND CASHIER 02/19/2013 Office visit Terese Davidson MD 02/16/2013 Nurse visit Kaylynn Mendez WAITER AND CASHIER 02/09/2013 Office visit Sundeep Russell WAITER AND CASHIER 02/08/2013 Nurse visit Kaylynn Walker WAITER AND CASHIER 02/01/2013 Nurse visit Kaylynn Walker WAITER AND CASHIER 01/26/2013 Nurse visit Sabrina Mendez MMD UNIT TEACHER 01/25/2013 Office visit Kaylynn Walker WAITER AND CASHIER 01/22/2013 Office visit Yoan Castaneda MD 01/18/2013 Nurse visit Kaylynn Walker WAITER AND CASHIER 01/11/2013 Nurse visit Kaylynn Walker WAITER AND CASHIER 01/05/2013 Nurse visit Kaylynn Walker WAITER AND CASHIER 12/29/2012 Office visit Kaylynn Walker WAITER AND CASHIER 11/27/2012 Office visit Kaylynn Walker WAITER AND CASHIER 11/08/2012 Office visit Odell Tierney MD 11/08/2012 Voided Odell Tierney MD 11/07/2012 Office visit Kaylynn Mendez WAITER AND CASHIER 10/31/2012 [facility] John Hoskins MD 10/31/2012 Office visit Kaylynn Mendez WAITER AND CASHIER 10/19/2012 Office visit Genoveva Ayala WAITER AND CASHIER 10/10/2012 Office visit Kaylynn Mendez WAITER AND CASHIER 10/03/2012 Office visit Kaylynn Walker WAITER AND CASHIER 09/26/2012 Office visit Kaylynn Walker WAITER AND CASHIER 09/06/2012 Office visit Kaylynn Mendez WAITER AND CASHIER 09/06/2012 Office visit Odell Tierney MD 08/31/2012 Voided Kaylynn Mendez WAITER AND CASHIER 07/28/2012 Office visit Kaylynn Mendez WAITER AND CASHIER 07/27/2012 Office visit David Joyner DO 07/20/2012 Hospital David Joyner DO 07/13/2012 [facility] David Joyner DO 07/11/2012 Office visit Kaylynn Mendez WAITER AND CASHIER 06/27/2012 Hospital Odell Tierney MD 06/21/2012 Office visit David Joyner DO 06/21/2012 Office visit Odell Tierney MD 06/20/2012 Office visit Brittni Yanez WAITER AND CASHIER 06/06/2012 Office visit Odell Tierney MD 05/03/2012 Office visit Kaylynn Mendez WAITER AND CASHIER 04/28/2012 Office visit Brittni Yanez WAITER AND CASHIER 04/11/2012 Office visit Kaylynn Mendez WAITER AND CASHIER 04/06/2012 [facility] John Hoskins MD 03/30/2012 Office visit Kaylynn Mendez WAITER AND CASHIER 03/15/2012 Office visit Kaylynn Mendez WAITER AND CASHIER 03/15/2012 Office visit Odell Tierney MD 02/09/2012 Office visit Kaylynn Mendez WAITER AND CASHIER 12/23/2011 Office visit Kaylynn Mendez WAITER AND CASHIER 11/02/2011 Office visit Kaylynn Mendez WAITER AND CASHIER 10/14/2011 Office visit Kaylynn Mendez WAITER AND CASHIER 09/27/2011 Office visit Kaylynn Mendez WAITER AND CASHIER 08/19/2011 Hospital John Hoskins MD 08/18/2011 Hospital John Hoskins MD 08/18/2011 Office visit Kaylynn Mendez WAITER AND CASHIER 08/02/2011 Office visit Kaylynn Mendez WAITER AND CASHIER 07/08/2011 Office visit Kaylynn Mendez WAITER AND CASHIER 07/05/2011 Office visit Odell Tierney MD 06/15/2011 Office visit Kaylynn Mendez WAITER AND CASHIER 05/14/2011 Office visit Kaylynn Mendez WAITER AND CASHIER 05/11/2011 Office visit Odell Tierney MD 04/28/2011 Office visit Kaylynn Mendez WAITER AND CASHIER 03/02/2011 Office visit Chadd Norris DO 02/17/2011 [...]
--- OUTSIDE RECORDS SUMMARY | 2018-05-10 01:00 | XMS REPORT ---
Author Author Lena Chaves [facility] Address [address] [place], [place] [id number] Care Team Providers Care Advertising Intern Name Role Phone Lena Chaves PCP Unavailable [...] 01/19/2016 APPLY BY EXTERNAL ROUTE ONCE DAILY [employer] 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 jigfkbvj-abjxqvydc-PH 3.5-10,000-1 mg/mL-unit/mL-% otic drops,suspension 201607/23/2016 instill 4 [...] Reviewed 04/28/2011 12:00 AM Decadron 1 mg ND#[id number] (Jr) Reviewed 04/28/2011 12:00 AM Depo-Medrol 80 mg ND#[id number]-Wzxhqley Reviewed 09/02/2015 12:00 AM Toradol 60 Mg NDC#5423-6231-23 Reviewed 09/02/2015 12:00 AM Phenergan, Up to 50 Mg RHC Medicaid Reviewed 09/16/2015 12:00 AM Toradol 60 Mg NDC#9840-3476-42 Reviewed 09/16/2015 12:00 AM Phenergan Up to 50 mg RHC Medicare Reviewed 05/11/2011 12:00 AM N BLOCK INJ OCCIPITAL Reviewed 05/11/2011 12:00 AM Kenalog Iq-[address]-20 ANNA Reviewed 11/13/2015 12:00 AM ASSAY OF [...] INJ SC/IM Reviewed 07/08/2011 12:00 AM Toradol,15mg [facility]#[id number], [place] Reviewed 07/08/2011 12:00 AM Phenergan 50 Mg Im [facility] 1814-4572-73 [place] Reviewed 01/21/2016 12:00 AM ECG MONIT/REPRT UP TO 48 HRS Returned 08/02/2011 12:00 AM THER/PROPH/DIAG INJ SC/IM Reviewed 08/02/2011 12:00 AM Decadron 1 mg [facility]#[id number] (Jr) Reviewed 08/02/2011 12:00 AM Depo-Medrol 80 mg [facility]#[id number]-Duckxlwd Reviewed 03/05/2016 12:00 AM COMPLETE CBC W/AUTO DIFF WBC Reviewed 03/05/2016 12:00 AM STREP A ASSAY W/OPTIC Reviewed 03/05/2016 12:00 AM C-REACTIVE PROTEIN Reviewed 03/18/2016 12:00 AM [facility] MEDICARE [...] Reviewed 09/27/2011 12:00 AM Depo-Medrol 80 mg ND#[id number]-Nniopalm Reviewed 09/27/2011 12:00 AM Depo-Medrol 40 mg [facility]#[id number] Reviewed 07/06/2016 12:00 AM CHEST X-RAY 4/> [...] Reviewed 12/23/2011 12:00 AM Decadron 1 mg NDC#[id number] (Jr) Reviewed 12/23/2011 12:00 AM Depo-Medrol 80 mg NDC#[id number]-Uydccjmr Reviewed 11/02/2016 11:45 AM URINALYSIS AUTO W/O [...] Reviewed 02/09/2012 12:00 AM Decadron 1 mg NDC#[id number] (Jr) Reviewed 02/09/2012 12:00 AM Depo-Medrol 80 mg NDC#[id number]-Huwikhju Reviewed 02/21/2017 12:00 AM CULTURE OTHR SPECIMN AEROBIC Returned 02/21/2017 12:00 AM INFLUENZA ASSAY W/OPTIC Returned 02/23/2017 12:00 AM COMPLETE CBC W/AUTO DIFF WBC Reviewed 02/23/2017 12:00 AM X-RAY EXAM OF KNEE 3 Returned 03/15/2012 12:00 AM N BLOCK INJ OCCIPITAL Reviewed 03/15/2012 12:00 AM Kenalog Sa-[address]-20 ANNA Reviewed 04/11/2012 12:00 AM COMPLETE CBC W/AUTO DIFF WBC Reviewed 04/11/2012 12:00 AM COMPREHEN METABOLIC PANEL Reviewed 04/11/2012 12:00 AM LIPID PANEL Reviewed 04/11/2012 12:00 AM ASSAY THYROID STIM HORMONE Reviewed 04/11/2012 12:00 AM DESTRUCT PREMALG LES 2-14 Reviewed 06/20/2012 12:00 AM THER/PROPH/DIAG INJ SC/IM Reviewed 06/20/2012 12:00 AM Decadron, Per 1 Mg ND# [address]-14 Reviewed 06/20/2012 12:00 AM Depo-Medrol, Per 80 Mg NDC#3380-6524-94 Reviewed 09/06/2012 12:00 AM N BLOCK INJ OCCIPITAL Reviewed 09/06/2012 12:00 AM Kenalog Vg-[address]-20 ANNA Reviewed 09/06/2012 12:00 AM X-RAY EXAM RIBS UNI 2 VIEWS Reviewed 09/26/2012 12:00 AM THER/PROPH/DIAG INJ SC/IM Reviewed 09/26/2012 12:00 AM Decadron, Per 1 Mg NDC# [address]-54 Reviewed 09/26/2012 12:00 AM Depo-Medrol, Per 80 Mg NDC#6733-3404-71 Reviewed 10/03/2012 12:00 AM URINALYSIS AUTO W/O SCOPE Reviewed 10/03/2012 12:00 AM THER/PROPH/DIAG INJ SC/IM Reviewed 10/03/2012 12:00 AM Toradol 60 Mg NDC#4239-4746-73 Reviewed 10/03/2012 12:00 AM Phenergan, 25Mg NDC#0533-9499-55 Reviewed 10/19/2012 12:00 AM N BLOCK INJ OCCIPITAL Reviewed 10/19/2012 12:00 AM Kenalog, Per 10 Mg [facility]#5768-7932-09 Reviewed 10/19/2012 12:00 AM Toradol 30 Mg [facility]#8459-5020-58 Reviewed 10/19/2012 12:00 AM THER/PROPH/DIAG INJ SC/IM Reviewed 10/31/2012 12:00 AM COMPLETE CBC W/AUTO DIFF WBC Reviewed 10/31/2012 12:00 AM COMPREHEN METABOLIC PANEL Reviewed 10/31/2012 12:00 AM LIPID PANEL Reviewed 10/31/2012 12:00 AM ELECTROCARDIOGRAM COMPLETE Reviewed 11/03/2012 12:[address] THORAX W/O & W/DYE Reviewed 11/08/2012 12:00 AM N BLOCK INJ OCCIPITAL Reviewed 11/08/2012 12:00 AM Kenalog Xq-[address]-20 ANNA Reviewed 11/27/2012 12:00 AM COMPLETE CBC [...] 01/25/2013 12:00 AM Decadron, Per 1 Mg [facility]# [address]-39 Reviewed 01/25/2013 12:00 AM Depo-Medrol, Per 80 Mg [facility]#8776-9912-13 Reviewed 01/26/2013 12:00 AM IMMUNOTHERAPY ONE INJECTION [...] 05/16/2013 12:00 AM Decadron, Per 1 Mg [facility]# [address]-68 Reviewed 05/16/2013 12:00 AM Depo-Medrol, Per 80 Mg [facility]#0556-1578-79 Reviewed 05/31/2013 12:00 AM IMMUNOTHERAPY INJECTIONS Reviewed 06/08/2013 12:00 AM IMMUNOTHERAPY INJECTIONS Reviewed 06/14/2013 12:00 AM IMMUNOTHERAPY INJECTIONS Reviewed 06/28/2013 12:00 AM IMMUNOTHERAPY INJECTIONS Reviewed 07/12/2013 12:00 AM X-RAY EXAM RIBS UNI 2 VIEWS Reviewed 07/18/2013 12:00 AM Toradol 60 Mg [facility]#2360-1545-30 Reviewed 07/18/2013 12:00 AM THER/PROPH/DIAG INJ SC/IM Reviewed 08/23/2013 12:00 AM COMPLETE CBC W/AUTO DIFF WBC Reviewed 08/23/2013 12:00 AM COMPREHEN METABOLIC PANEL Reviewed 08/23/2013 12:00 AM LIPID PANEL Reviewed 08/31/2013 12:00 AM X-RAY EXAM OF LOWER LEG Reviewed 09/04/2013 12:00 AM IMMUNOTHERAPY INJECTIONS Reviewed 09/14/2013 12:00 AM THER/PROPH/DIAG INJ SC/IM Reviewed 09/14/2013 12:00 AM Decadron, Per 1 Mg [facility]# [address]-66 Reviewed 09/14/2013 12:00 AM Depo-Medrol, Per 80 Mg [facility]#8096-7459-10 Reviewed 09/20/2013 12:00 AM IMMUNOTHERAPY INJECTIONS Reviewed [...] INJ OCCIPITAL Reviewed 12/10/2009 12:00 AM Kenalog Np-[address]-20 ANNA Reviewed 12/16/2009 12:00 AM HIV-1ANTIBODY Reviewed 12/16/2009 12:00 AM COMPLETE CBC W/AUTO DIFF WBC Reviewed 12/16/2009 12:00 AM METABOLIC PANEL TOTAL CA Reviewed 12/16/2009 12:00 AM Type and screen Reviewed 12/16/2009 12:00 AM PROTHROMBIN TIME Reviewed 12/16/2009 12:00 AM THROMBOPLASTIN TIME PARTIAL Reviewed 03/18/2010 12:00 AM DRAIN/INJ JOINT/BURSA W/O US Reviewed 03/18/2010 12:00 AM Kenalog Yr-[address]-20 ANNA Reviewed 11/21/2013 12:00 AM RADEX HAND MINIMUM 3 VIEWS Reviewed 06/03/2010 12:00 AM INJ TRIGGER POINT 1/2 MUSCL Reviewed 06/03/2010 12:00 AM Kenalog per 10Mg [facility]#[address]-06(Niall) Reviewed 12/05/2013 12:00 AM COMPLETE CBC W/AUTO [...] 12:00 AM Kenalog per 10Mg Im-[facility]#[address]-60(Niall) Reviewed 2014 12:00 AM COMPLETE CBC W/AUTO [...] INJ OCCIPITAL Reviewed 10/01/2010 12:00 AM Kenalog Mz-[address]-20 ANNA Reviewed 07/25/2014 12:00 AM THER/PROPH/DIAG INJ [...] Quant,IgM <0.80 RMSF , IgG, EIA Negative [facility] Spotted Fever,IgM 0.51 E. chaffeensis [...] 141 Influenza 04/24/2014 sanofi pasteur PMC Fluzone [id number] Intramuscular Left Upper Arm 02/27/2014 01/15/2014 141 Influenza 02/13/2015 sanofi pasteur PMC Fluzone [id number] Intramuscular Left Deltoid 02/13/2015 01/03/2015 140 Tdap 06/06/2015 [employer] SKB BOOSTRIX [id number] Intramuscular Left Deltoid 06/06/2015 07/23/2014 115 Influenza 03/18/2016 sanofi pasteur PMC Fluzone [id number] Intramuscular Left Deltoid 03/17/2016 01/03/2015 141 History [...] 10:46AM Allergic reaction Mar 05 2017 9:14AM Payers Insurance Name Company Name Plan Name Plan Number Policy Number Policy Group Number Start Date Medicare RHC Medicare RHC [id number] N/A [facility] [id number] N/A Medicare Part A Medicare - Lab/Xray [id number] N/A Medicare Part B Medicare [place] [id number] Monday, February 28, 2000 [place] [employer] [place] [employer] [place] [id number] Tuesday, November 10, 2009 Medicare Part A Medicare Part A [id number] N/A [place] [employer] - RHC [place] [employer] - [facility] [id number] [facility] Comm Plan of [id number] Wednesday, May 30, 2012 History of Encounters Visit Date Visit Type Provider 03/05/2017 Office visit Lena Chaves PRE K TEACHER 02/23/2017 Office visit Symone Marie PRE K TEACHER 02/21/2017 Office visit Heena Dumont MD 02/15/2017 Office visit Heena Dumont MD 02/02/2017 Office visit Heena Dumont MD 01/07/2017 Office visit Riccardo Cardoza MD 01/03/2017 Office visit Heena Dumont MD 12/15/2016 Office visit Kaylynn Mendez PRE K TEACHER 12/02/2016 Office visit Heena Dumont MD 11/23/2016 [facility] Eliseo Hoskins MD 11/23/2016 Office visit Kaylynn Mendez PRE K TEACHER 11/17/2016 Office visit Kaylynn Mendez PRE K TEACHER 11/05/2016 Office visit Riccardo Cardoza MD 11/02/2016 Office visit Heena Dumont MD 10/06/2016 Office visit Kaylynn Mendez PRE K TEACHER 09/22/2016 Office visit Heena Dumont MD 09/09/2016 Office visit Kaylynn Mendez PRE K TEACHER 08/27/2016 Office visit Riccardo Cardzoa MD 08/26/2016 Office visit Heena Dumont MD 07/09/2016 Office visit Ricacrdo Cardoza MD 07/06/2016 Office visit Heena Dumont MD 06/18/2016 Office visit Kaylynn Mendez PRE K TEACHER 06/07/2016 Office visit Sundeep Russell PRE K TEACHER 06/04/2016 Office visit Heena Dumont MD 05/13/2016 Office visit Heena Dumont MD 05/03/2016 Office visit Heena Dumont MD 04/26/2016 Office visit Kaylynn Mendez PRE K TEACHER 04/14/2016 Office visit Heena Dumont MD 04/13/2016 Office visit Kaylynn Mendez PRE K TEACHER 04/02/2016 Office visit Lena El PRE K TEACHER 04/02/2016 Office visit Heena Dumont MD 03/26/2016 Office visit Yesica Falcon PRE K TEACHER 03/17/2016 Office visit Heena Dumont MD 03/05/2016 Office visit Kaylynn Mendez PRE K TEACHER 02/16/2016 Office visit Heena Dumont MD 02/14/2016 Office visit Na Jones PRE K TEACHER 01/16/2016 Office visit eHena Dumont MD 12/16/2015 Office visit Heena Dumont MD 11/24/2015 Office visit Kaylynn Mendez PRE K TEACHER 11/18/2015 Office visit Heena Dumont MD 11/03/2015 Office visit Sundeep Russell PRE K TEACHER 10/20/2015 Office visit Kaylynn Mendez PRE K TEACHER 09/23/2015 Office visit Kaylynn Mendez PRE K TEACHER 09/16/[address] Pepe Figueroa MD 09/02/2015 Office visit Kaylynn Walker PRE K TEACHER 09/01/2015 Office visit Kaylynn Walker PRE K TEACHER 07/30/2015 Office visit Heena Dumont MD 07/15/2015 Office visit Kaylynn Walker PRE K TEACHER 07/04/2015 Office visit Heena Dumont MD 06/06/2015 Office visit Heena Dumont MD 06/06/2015 Office visit Kaylynn Walker PRE K TEACHER 06/02/2015 Office visit Kaylynn Walker PRE K TEACHER 05/26/2015 Office visit Kaylynn Walker PRE K TEACHER 05/20/2015 Office visit Kaylynn Walker PRE K TEACHER 05/08/2015 Office visit Heena Dumont MD 05/06/2015 Office visit Kaylynn Walker PRE K TEACHER 04/29/2015 Office visit Kaylynn Walker PRE K TEACHER 03/27/2015 Voided Brittni Yanez PRE K TEACHER 03/21/2015 Office visit Heena Dumont MD 03/12/2015 Office visit Kaylynn Mendez PRE K TEACHER 02/26/2015 Office visit Brittni Yanez PRE K TEACHER 02/13/2015 Office visit Heena Dumont MD 01/15/2015 Office visit Brittni Yanez PRE K TEACHER 01/13/2015 Office visit Heena Dumont MD 01/08/[address] Carol Fowler MD 01/01/2015 Office visit Brittni Yanez PRE K TEACHER 12/13/2014 Office visit Heena Dumont MD 11/27/2014 Office visit Kaylynn Mendez PRE K TEACHER 11/14/2014 Office visit Heena Dumont MD 10/18/2014 Office visit Heena Dumont MD 10/17/2014 Hospital John Hoskins MD 10/09/2014 Office visit Heena Dumont MD 09/25/2014 Office visit Heena Dumont MD 09/17/2014 Office visit Kaylynn Mendez PRE K TEACHER 09/04/2014 Office visit Heena Dumont MD 08/28/2014 Office visit Kaylynn Mendez PRE K TEACHER 08/23/2014 Hospital John Hoskins MD 08/01/2014 Office visit Kaylynn Mendez PRE K TEACHER 07/29/2014 Office visit Heena Dumont MD 07/25/2014 Nurse visit Heena Dumont MD 07/17/2014 Office visit Kaylynn Mendez PRE K TEACHER 07/11/2014 Office visit Heena Dumont MD 07/01/2014 Office visit Heena Dumont MD 06/25/2014 Office visit Kaylynn Walker PRE K TEACHER 06/12/2014 Office visit Kaylynn Walker PRE K TEACHER 06/06/2014 Office visit Kaylynn Mendez PRE K TEACHER 05/27/2014 Office visit Heena Dumont MD 04/20/2014 Office visit Yesica Falcon PRE K TEACHER 03/29/2014 Office visit Na Jones PRE K TEACHER 03/15/2014 Office visit Heena Dumont MD 2014 Office visit Heena Dumont MD 2014 [facility] John Hoskins MD 02/27/2014 Nurse visit Heena Dumont MD 02/13/2014 Office visit Lena El PRE K TEACHER 02/07/2014 Office visit Heena Dumont MD 02/03/2014 Office visit Na Jones PRE K TEACHER 01/30/2014 Office visit Kaylynn Mendez PRE K TEACHER 01/24/2014 Office visit Sundeep Russell PRE K TEACHER 01/16/2014 Office visit Kaylynn Walker PRE K TEACHER 01/10/2014 Nurse visit Kaylynn Walker PRE K TEACHER 01/08/2014 Office visit Kaylynn Walker PRE K TEACHER 12/05/2013 Office visit Kaylynn Walker PRE K TEACHER 11/21/2013 Office visit Kaylynn Walker PRE K TEACHER 10/23/2013 Office visit Brittni Yanez PRE K TEACHER 10/17/2013 Nurse visit Heena Dumont MD 10/12/2013 Office visit Kaylynn Mendez PRE K TEACHER 10/02/2013 Office visit Heena Dumont MD 09/20/2013 Nurse visit Kaylynn Mendez PRE K TEACHER 09/20/2013 Voided Heena Dumont MD 09/14/2013 Office visit Kaylynn Walker PRE K TEACHER 09/05/2013 Office visit Sundeep Russell PRE K TEACHER 09/04/2013 Nurse visit Kaylynn Walker PRE K TEACHER 08/31/2013 Office visit Kaylynn Walker PRE K TEACHER 08/23/2013 Office visit Heena Dumont MD 08/10/2013 Office visit Kaylynn Walker PRE K TEACHER 07/25/2013 Office visit Kaylynn Walker PRE K TEACHER 07/18/2013 Office visit Kaylynn Walker PRE K TEACHER 07/12/2013 Office visit Kaylynn Walker PRE K TEACHER 06/28/2013 Nurse visit Kaylynn Walker PRE K TEACHER 06/14/2013 Nurse visit Kaylynn Walker PRE K TEACHER 06/08/2013 Nurse visit Kaylynn Walker PRE K TEACHER 05/31/2013 Nurse visit Chadd Norris DO 05/18/2013 Office visit Terese Davidson MD 05/16/2013 Office visit Kaylynn Walker PRE K TEACHER 05/09/2013 Office visit Kaylynn Walker PRE K TEACHER 04/29/2013 [facility] John Hoskins MD 04/25/2013 Nurse visit Kaylynn Walker PRE K TEACHER 04/17/2013 Office visit Kaylynn Walker PRE K TEACHER 04/03/2013 Nurse visit Kaylynn Walker PRE K TEACHER 04/03/2013 Office visit Terese Davidson MD 03/28/2013 Office visit Sundeep Russell PRE K TEACHER 03/21/2013 Office visit Kaylynn Mendez PRE K TEACHER 03/20/2013 Office visit Terese Davidson MD 03/14/2013 Nurse visit Kaylynn Walker PRE K TEACHER 03/05/2013 Nurse visit Kaylynn Walker PRE K TEACHER 02/19/2013 Office visit Terese Davidson MD 02/16/2013 Nurse visit Kaylynn Walker PRE K TEACHER 02/09/2013 Office visit Sundeep Russell PRE K TEACHER 02/08/2013 Nurse visit Kaylynn Walker PRE K TEACHER 02/01/2013 Nurse visit Kaylynn Walker PRE K TEACHER 01/26/2013 Nurse visit Sabrina Andrea SUPERVISOR LOGGING 01/25/2013 Office visit Kaylynn Andrea PRE K TEACHER 01/22/2013 Office visit Yoan Castaneda MD 01/18/2013 Nurse visit Kaylynn Andrea PRE K TEACHER 01/11/2013 Nurse visit Kaylynn Walker PRE K TEACHER 01/05/2013 Nurse visit Kaylynn Mendez PRE K TEACHER 12/29/2012 Office visit Kaylynn Andrea PRE K TEACHER 11/27/2012 Office visit Kaylynn Mendez PRE K TEACHER 11/08/2012 Office visit Odell Tierney MD 11/08/2012 Voided Odell Tierney MD 11/07/2012 Office visit Kaylynn Mendez PRE K TEACHER 10/31/2012 [facility] John Hoskins MD 10/31/2012 Office visit Kaylynn Mendez PRE K TEACHER 10/19/2012 Office visit Genoveva Ayala PRE K TEACHER 10/10/2012 Office visit Kaylynn Mendez PRE K TEACHER 10/03/2012 Office visit Kaylynn Mendez PRE K TEACHER 09/26/2012 Office visit Kaylynn Mendez PRE K TEACHER 09/06/2012 Office visit Kaylynn Mendez PRE K TEACHER 09/06/2012 Office visit Odell Tierney MD 08/31/2012 Voided Kaylynn Mendez PRE K TEACHER 07/28/2012 Office visit Kaylynn Mendez PRE K TEACHER 07/27/2012 Office visit David Joyner DO 07/20/2012 [facility] David Joyner DO 07/13/2012 [facility] David Joyner DO 07/11/2012 Office visit Kaylynn Mendez PRE K TEACHER 06/27/2012 [facility] Odell Tierney MD 06/21/2012 Office visit David Joyner DO 06/21/2012 Office visit Odell Tierney MD 06/20/2012 Office visit Brittni Yanez PRE K TEACHER 06/06/2012 Office visit Odell Tierney MD 05/03/2012 Office visit Kaylynn Mendez PRE K TEACHER 04/28/2012 Office visit Brittnikitty Yanez PRE K TEACHER 04/11/2012 Office visit Kaylynn Mendez PRE K TEACHER 04/06/2012 Hospital John Hoskins MD 03/30/2012 Office visit Kaylynn Mendez PRE K TEACHER 03/15/2012 Office visit Kaylynn Mendez PRE K TEACHER 03/15/2012 Office visit Odell Tierney MD 02/09/2012 Office visit Kaylynn Walker PRE K TEACHER 12/23/2011 Office visit Kaylynn Walker PRE K TEACHER 11/02/2011 Office visit Kaylynn Walker PRE K TEACHER 10/14/2011 Office visit Kaylynn Walker PRE K TEACHER 09/27/2011 Office visit Kaylynn Walker PRE K TEACHER 08/19/2011 Hospital John Hoskins MD 08/18/2011 Hospital John Hoskins MD 08/18/2011 Office visit Kaylynn Mendez PRE K TEACHER 08/02/2011 Office visit Kaylynn Mendez PRE K TEACHER 07/08/2011 Office visit Kaylynn Mendez PRE K TEACHER 07/05/2011 Office visit Odell Tierney MD 06/15/2011 Office visit Kaylynn Mendez PRE K TEACHER 05/14/2011 Office visit Kaylynn Mendez PRE K TEACHER 05/11/2011 Office visit Odell Tierney MD 04/28/2011 Office visit Kaylynn Mendez PRE K TEACHER 03/02/2011 Office visit Chadd Norris DO [...] Odell Tierney MD 02/06/2010 Office visit Vickie STENI 02/04/2010 Surgery Yoan Castaneda MD 01/29/2010 Office visit Hillary RITCHIE 12/23/2009 Surgery Yoan Castaneda MD 12/16/2009 Surgery Yoan Castaneda MD 12/10/2009 Office visit Odell Tierney MD 11/26/2009 Office visit Yoan Castnaeda MD 11/17/2009 Office visit Odell Tierney MD 11/10/2009 Office visit Chadd Norris DO
--- OUTSIDE RECORDS SUMMARY | 2018-05-10 01:18 | XMS REPORT ---
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 lrlggisv-crinvornj-WI 3.5-10,000-1 mg/mL-unit/mL-% otic drops,suspension 201607/23/2016 instill 4 [...] Reviewed 04/28/2011 12:00 AM Decadron 1 mg ND#[id number] (Jr) Reviewed 04/28/2011 12:00 AM Depo-Medrol 80 mg ND#[id number]-Gztnzpfe Reviewed 09/02/2015 12:00 AM Toradol 60 Mg NDC#8427-3424-93 Reviewed 09/02/2015 12:00 AM Phenergan, Up to 50 Mg RHC Medicaid Reviewed 09/16/2015 12:00 AM Toradol 60 Mg ND#2386-0350-82 Reviewed 09/16/2015 12:00 AM Phenergan Up to 50 mg RHC Medicare Reviewed 05/11/2011 12:00 AM N BLOCK INJ OCCIPITAL Reviewed 05/11/2011 12:00 AM Kenalog Ia-[address]-20 ANNA Reviewed 11/13/2015 12:00 AM ASSAY OF [...] 07/08/2011 12:00 AM Toradol,15mg [facility]#[id number], [place] Reviewed 07/08/2011 12:00 AM Phenergan 50 Mg Im [facility] 0711-7134-28 [place] Reviewed 01/21/2016 12:00 AM ECG MONIT/REPRT UP TO 48 HRS Returned 08/02/2011 12:00 AM THER/PROPH/DIAG INJ SC/IM Reviewed 08/02/2011 12:00 AM Decadron 1 mg [facility]#[id number] (Jr) Reviewed 08/02/2011 12:00 AM Depo-Medrol 80 mg [facility]#[id number]-Wxvnpeof Reviewed 03/05/2016 12:00 AM COMPLETE CBC W/AUTO [...] Depo-Medrol 80 mg [facility]#[id number]-Pjxxhizx Reviewed 09/27/2011 12:00 AM Depo-Medrol 40 mg NDC#[id number] Reviewed 07/06/2016 12:00 AM CHEST X-RAY 4/> [...] Reviewed 12/23/2011 12:00 AM Decadron 1 mg NDC#[id number] (Jr) Reviewed 12/23/2011 12:00 AM Depo-Medrol 80 mg NDC#[id number]-Itqcutne Reviewed 11/02/2016 11:45 AM URINALYSIS AUTO W/O SCOPE Reviewed 02/09/2012 12:00 AM THER/PROPH/DIAG INJ SC/IM Reviewed 02/09/2012 12:00 AM Decadron 1 mg NDC#51256504390 (Jr) Reviewed 02/09/2012 12:00 AM Depo-Medrol 80 mg NDC#[id number]-Vjfvxfoq Reviewed 03/15/2012 12:00 AM N BLOCK INJ OCCIPITAL Reviewed 03/15/2012 12:00 AM Kenalog Ed-[address]-20 ANNA Reviewed 04/11/2012 12:00 AM COMPLETE CBC W/AUTO DIFF WBC Reviewed 04/11/2012 12:00 AM COMPREHEN METABOLIC PANEL Reviewed 04/11/2012 12:00 AM LIPID PANEL Reviewed 04/11/2012 12:00 AM ASSAY THYROID STIM HORMONE Reviewed 04/11/2012 12:00 AM DESTRUCT PREMALG LES 2-14 Reviewed 06/20/2012 12:00 AM THER/PROPH/DIAG INJ SC/IM Reviewed 06/20/2012 12:00 AM Decadron, Per 1 Mg ND# [address]-18 Reviewed 06/20/2012 12:00 AM Depo-Medrol, Per 80 Mg ND#8251-9981-97 Reviewed 09/06/2012 12:00 AM N BLOCK INJ OCCIPITAL Reviewed 09/06/2012 12:00 AM Kenalog Wh-[address]-20 ANNA Reviewed 09/06/2012 12:00 AM X-RAY EXAM RIBS UNI 2 VIEWS Reviewed 09/26/2012 12:00 AM THER/PROPH/DIAG INJ SC/IM Reviewed 09/26/2012 12:00 AM Decadron, Per 1 Mg ND# [address]-86 Reviewed 09/26/2012 12:00 AM Depo-Medrol, Per 80 Mg ND#9462-5261-24 Reviewed 10/03/2012 12:00 AM URINALYSIS AUTO W/O SCOPE Reviewed 10/03/2012 12:00 AM THER/PROPH/DIAG INJ SC/IM Reviewed 10/03/2012 12:00 AM Toradol 60 Mg ND#3949-3579-11 Reviewed 10/03/2012 12:00 AM Phenergan, 25Mg ND#8255-8079-69 Reviewed 10/19/2012 12:00 AM N BLOCK INJ OCCIPITAL Reviewed 10/19/2012 12:00 AM Kenalog, Per 10 Mg ND#6863-6401-32 Reviewed 10/19/2012 12:00 AM Toradol 30 Mg ND#7772-5841-78 Reviewed 10/19/2012 12:00 AM THER/PROPH/DIAG INJ SC/IM Reviewed 10/31/2012 12:00 AM COMPLETE CBC W/AUTO DIFF WBC Reviewed 10/31/2012 12:00 AM COMPREHEN METABOLIC PANEL Reviewed 10/31/2012 12:00 AM LIPID PANEL Reviewed 10/31/2012 12:00 AM ELECTROCARDIOGRAM COMPLETE Reviewed 11/03/2012 12:[address] THORAX W/O & W/DYE Reviewed 11/08/2012 12:00 AM N BLOCK INJ OCCIPITAL Reviewed 11/08/2012 12:00 AM Kenalog Jy-[address]-20 ANNA Reviewed 11/27/2012 12:00 AM COMPLETE CBC [...] 1 Mg [facility]# [address]-15 Reviewed 01/25/2013 12:00 AM Depo-Medrol, Per 80 Mg [facility]#0323-2089-22 Reviewed 01/26/2013 12:00 AM IMMUNOTHERAPY ONE INJECTION [...] 1 Mg [facility]# [address]-18 Reviewed 05/16/2013 12:00 AM Depo-Medrol, Per 80 Mg [facility]#2560-1484-33 Reviewed 05/31/2013 12:00 AM IMMUNOTHERAPY INJECTIONS Reviewed 06/08/2013 12:00 AM IMMUNOTHERAPY INJECTIONS Reviewed 06/14/2013 12:00 AM IMMUNOTHERAPY INJECTIONS Reviewed 06/28/2013 12:00 AM IMMUNOTHERAPY INJECTIONS Reviewed 07/12/2013 12:00 AM X-RAY EXAM RIBS UNI 2 VIEWS Reviewed 07/18/2013 12:00 AM Toradol 60 Mg [facility]#2141-0783-41 Reviewed 07/18/2013 12:00 AM THER/PROPH/DIAG INJ SC/IM [...] 1 Mg [facility]# [address]-98 Reviewed 09/14/2013 12:00 AM Depo-Medrol, Per 80 Mg [facility]#3285-7497-13 Reviewed 09/20/2013 12:00 AM IMMUNOTHERAPY INJECTIONS Reviewed [...] INJ OCCIPITAL Reviewed 12/10/2009 12:00 AM Kenalog Kd-[address]-20 ANNA Reviewed 12/16/2009 12:00 AM HIV-1ANTIBODY Reviewed 12/16/2009 12:00 AM COMPLETE CBC W/AUTO DIFF WBC Reviewed 12/16/2009 12:00 AM METABOLIC PANEL TOTAL CA Reviewed 12/16/2009 12:00 AM Type and screen Reviewed 12/16/2009 12:00 AM PROTHROMBIN TIME Reviewed 12/16/2009 12:00 AM THROMBOPLASTIN TIME PARTIAL Reviewed 03/18/2010 12:00 AM DRAIN/INJ JOINT/BURSA W/O US Reviewed 03/18/2010 12:00 AM Kenalog Uf-[address]-20 ANNA Reviewed 11/21/2013 12:00 AM RADEX HAND MINIMUM 3 VIEWS Reviewed 06/03/2010 12:00 AM INJ TRIGGER POINT 1/2 MUSCL Reviewed 06/03/2010 12:00 AM Kenalog per 10Mg Im-Nd#[address]-57(Niall) Reviewed 12/05/2013 12:00 AM COMPLETE CBC W/AUTO [...] 07/23/2010 12:00 AM Kenalog per 10Mg Im-[facility]#[address]-69(Niall) Reviewed 2014 12:00 AM COMPLETE CBC W/AUTO [...] INJ OCCIPITAL Reviewed 10/01/2010 12:00 AM Kenalog Pj-[address]-20 ANNA Reviewed 07/25/2014 12:00 AM THER/PROPH/DIAG INJ [...] 141 Influenza 04/24/2014 sanofi pasteur PMC Fluzone [id number] Intramuscular Left Upper Arm 02/27/2014 01/15/2014 141 Influenza 02/13/2015 sanofi pasteur PMC Fluzone [id number] Intramuscular Left Deltoid 02/13/2015 01/03/2015 140 Tdap 06/06/2015 Gl[employer]oSmith[employer] SKB BOOSTRIX [id number] Intramuscular Left Deltoid 06/06/2015 07/23/2014 115 Influenza 03/18/2016 sanofi pasteur PMC Fluzone [id number] Intramuscular Left Deltoid 03/17/2016 01/03/2015 141 History [...] Number Start Date Medicare RHC Medicare RHC [id number] N/A [facility] RHC Comm [id number] N/A Medicare Part A Medicare - Lab/Xray [id number] N/A Medicare Part B Medicare Of [place] [id number] Monday, February 28, 2000 [place] [id number] Tuesday, November 10, 2009 Medicare Part A Medicare Part A [id number] N/A [place] [facility] - RHC [place] [facility] Techn[place] Pro[place] - RHC [id number] [facility] Comm Plan of [id number] Wednesday, May 30, 2012 History of Encounters Visit Date Visit Type Provider 11/05/2016 Office visit Riccardo Cardoza MD 11/02/2016 Office visit Heena Dumont MD 10/06/2016 Office visit Kaylynn Mendez GAUGE INSPECTOR 09/22/2016 Office visit Heena Dumont MD 09/09/2016 Office visit Kaylynn Mendez GAUGE INSPECTOR 08/27/2016 Office visit Riccardo Cardoza MD 08/26/2016 Office visit Heena Dumont MD 07/09/2016 Office visit Riccardo Cardoza MD 07/06/2016 Office visit Heena Dumont MD 06/18/2016 Office visit Kaylynn Mendez APRN 06/07/2016 Office visit Sundeep Russell APRN 06/04/2016 Office visit Heena Dumont MD 05/13/2016 Office visit Heena Dumont MD 05/03/2016 Office visit Heena Dumont MD 04/26/2016 Office visit Kaylynn Mendez GAUGE INSPECTOR 04/14/2016 Office visit Heena Dumont MD 04/13/2016 Office visit Kaylynn Mendez GAUGE INSPECTOR 04/02/2016 Office visit Lena El GAUGE INSPECTOR 04/02/2016 Office visit Heena Dumont MD 03/26/2016 Office visit Yesica Falcon GAUGE INSPECTOR 03/17/2016 Office visit Heena Dumont MD 03/05/2016 Office visit Kaylynn Mendez GAUGE INSPECTOR 02/16/2016 Office visit Heena Dumont MD 02/14/2016 Office visit Na Jones GAUGE INSPECTOR 01/16/2016 Office visit Heena Dumont MD 12/16/2015 Office visit Heena Dumont MD 11/24/2015 Office visit Kaylynn Mendez GAUGE INSPECTOR 11/18/2015 Office visit Heena Dumont MD 11/03/2015 Office visit Sundeep Russell GAUGE INSPECTOR 10/20/2015 Office visit Kaylynn Mendez GAUGE INSPECTOR 09/23/2015 Office visit Kaylynn Mendez GAUGE INSPECTOR 09/16/[address] Pepe Figueroa MD 09/02/2015 Office visit Kaylynn Mendez GAUGE INSPECTOR 09/01/2015 Office visit Kaylynn Mendez GAUGE INSPECTOR 07/30/2015 Office visit Heena Dumont MD 07/15/2015 Office visit Kaylynn Mendez GAUGE INSPECTOR 07/04/2015 Office visit Heena Dumont MD 06/06/2015 Office visit Heena Dumont MD 06/06/2015 Office visit Kaylynn Mendez GAUGE INSPECTOR 06/02/2015 Office visit Kaylynn Mendez GAUGE INSPECTOR 05/26/2015 Office visit Kaylynn Mendez GAUGE INSPECTOR 05/20/2015 Office visit Kaylynn Mendez GAUGE INSPECTOR 05/08/2015 Office visit Heena Dumont MD 05/06/2015 Office visit Kaylynn Mendez GAUGE INSPECTOR 04/29/2015 Office visit Kaylynn Mendez GAUGE INSPECTOR 03/27/2015 Voided Brittni Yanez GAUGE INSPECTOR 03/21/2015 Office visit Heena Dumont MD 03/12/2015 Office visit Kaylynn Mendez GAUGE INSPECTOR 02/26/2015 Office visit Brittni Yanez GAUGE INSPECTOR 02/13/2015 Office visit Heena Dumont MD 01/15/2015 Office visit Brittni Yanez GAUGE INSPECTOR 01/13/2015 Office visit Heena Dumont MD 01/08/[address] Carol Fowler MD 01/01/2015 Office visit Brittni Yanez GAUGE INSPECTOR 12/13/2014 Office visit Heena Dumont MD 11/27/2014 Office visit Kaylynn Mendez GAUGE INSPECTOR 11/14/2014 Office visit Heena Dumont MD 10/18/2014 Office visit Heena Dumont MD 10/17/2014 [facility] John Hoskins MD 10/09/2014 Office visit Heena Dumont MD 09/25/2014 Office visit Heena Dumont MD 09/17/2014 Office visit Kaylynn Mendez GAUGE INSPECTOR 09/04/2014 Office visit Heena Dumont MD 08/28/2014 Office visit Kaylynn Mendez GAUGE INSPECTOR 08/23/2014 [facility] John Hoskins MD 08/01/2014 Office visit Kaylynn Mendez GAUGE INSPECTOR 07/29/2014 Office visit Heena Dumont MD 07/25/2014 Nurse visit Heena Dumont MD 07/17/2014 Office visit Kaylynn Mendez GAUGE INSPECTOR 07/11/2014 Office visit Heena Dumont MD 07/01/2014 Office visit Heena Dumont MD 06/25/2014 Office visit Kaylynn Mendez GAUGE INSPECTOR 06/12/2014 Office visit Kaylynn Mendez GAUGE INSPECTOR 06/06/2014 Office visit Kaylynn Mendez GAUGE INSPECTOR 05/27/2014 Office visit Heena Dumont MD 04/20/2014 Office visit Yesica Falcon GAUGE INSPECTOR 03/29/2014 Office visit Na Jones GAUGE INSPECTOR 03/15/2014 Office visit Heena Dumont MD 2014 Office visit Heena Dumont MD 2014 [facility] John Hoskins MD 02/27/2014 Nurse visit Heena Dumont MD 02/13/2014 Office visit Lena El GAUGE INSPECTOR 02/07/2014 Office visit Heena Dumont MD 02/03/2014 Office visit Na Jones GAUGE INSPECTOR 01/30/2014 Office visit Kaylynn Mendez GAUGE INSPECTOR 01/24/2014 Office visit Sundeep Russell GAUGE INSPECTOR 01/16/2014 Office visit Kaylynn Mendez GAUGE INSPECTOR 01/10/2014 Nurse visit Kaylynn Mendez GAUGE INSPECTOR 01/08/2014 Office visit Kaylynn Mendez GAUGE INSPECTOR 12/05/2013 Office visit Kaylynn Walker GAUGE INSPECTOR 11/21/2013 Office visit Kaylynn Mendez GAUGE INSPECTOR 10/23/2013 Office visit Brittni Yanez GAUGE INSPECTOR 10/17/2013 Nurse visit Heena Dumont MD 10/12/2013 Office visit Kaylynn Mednez GAUGE INSPECTOR 10/02/2013 Office visit Heena Dumont MD 09/20/2013 Nurse visit Kaylynn Mendez GAUGE INSPECTOR 09/20/2013 Voided Heena Dumont MD 09/14/2013 Office visit Kaylynn Walker GAUGE INSPECTOR 09/05/2013 Office visit Sundeep Russell GAUGE INSPECTOR 09/04/2013 Nurse visit Kaylynn Walker GAUGE INSPECTOR 08/31/2013 Office visit Kaylynn Walker GAUGE INSPECTOR 08/23/2013 Office visit Heena Dumont MD 08/10/2013 Office visit Kaylynn Walker GAUGE INSPECTOR 07/25/2013 Office visit Kaylynn Walker GAUGE INSPECTOR 07/18/2013 Office visit Kaylynn Walker GAUGE INSPECTOR 07/12/2013 Office visit Kaylynn Walker GAUGE INSPECTOR 06/28/2013 Nurse visit Kaylynn Walker GAUGE INSPECTOR 06/14/2013 Nurse visit Kaylynn Walker GAUGE INSPECTOR 06/08/2013 Nurse visit Kaylynn Walker GAUGE INSPECTOR 05/31/2013 Nurse visit Chadd Norris DO 05/18/2013 Office visit Terese Davidson MD 05/16/2013 Office visit Kaylynn Walker GAUGE INSPECTOR 05/09/2013 Office visit Kaylynn Walker GAUGE INSPECTOR 04/29/2013 [facility] John Hoskins MD 04/25/2013 Nurse visit Kaylynn Walker GAUGE INSPECTOR 04/17/2013 Office visit Kaylynn Walker GAUGE INSPECTOR 04/03/2013 Nurse visit Kaylynn Walker GAUGE INSPECTOR 04/03/2013 Office visit Terese Davidson MD 03/28/2013 Office visit Sundeep Russell GAUGE INSPECTOR 03/21/2013 Office visit Kaylynn Mendez GAUGE INSPECTOR 03/20/2013 Office visit Terese Davidson MD 03/14/2013 Nurse visit Kaylynn Walker GAUGE INSPECTOR 03/05/2013 Nurse visit Kaylynn Mendez GAUGE INSPECTOR 02/19/2013 Office visit Terese Davidson MD 02/16/2013 Nurse visit Kaylynn Mendez GAUGE INSPECTOR 02/09/2013 Office visit Sundeep Russell GAUGE INSPECTOR 02/08/2013 Nurse visit Kaylynn Walker GAUGE INSPECTOR 02/01/2013 Nurse visit Kaylynn Walker GAUGE INSPECTOR 01/26/2013 Nurse visit Sabrina Mendez WATER TREATMENT PLANT MECHANIC 01/25/2013 Office visit Kaylynn Walker GAUGE INSPECTOR 01/22/2013 Office visit Yoan Castaneda MD 01/18/2013 Nurse visit Kaylynn Walker GAUGE INSPECTOR 01/11/2013 Nurse visit Kaylynn Walker GAUGE INSPECTOR 01/05/2013 Nurse visit Kaylynn Walker GAUGE INSPECTOR 12/29/2012 Office visit Kaylynn Walker GAUGE INSPECTOR 11/27/2012 Office visit Kaylynn Walker GAUGE INSPECTOR 11/08/2012 Office visit Odell Tierney MD 11/08/2012 Voided Odell Tierney MD 11/07/2012 Office visit Kaylynn Mendez GAUGE INSPECTOR 10/31/2012 [facility] John Hoskins MD 10/31/2012 Office visit Kaylynn Mendez GAUGE INSPECTOR 10/19/2012 Office visit Genoveva Ayala GAUGE INSPECTOR 10/10/2012 Office visit Kaylynn Mendez GAUGE INSPECTOR 10/03/2012 Office visit Kaylynn Walker GAUGE INSPECTOR 09/26/2012 Office visit Kaylynn Mendez GAUGE INSPECTOR 09/06/2012 Office visit Kaylynn Walker GAUGE INSPECTOR 09/06/2012 Office visit Odell Tierney MD 08/31/2012 Voided Kaylynn Mendez GAUGE INSPECTOR 07/28/2012 Office visit Kaylynn Mendez GAUGE INSPECTOR 07/27/2012 Office visit David Joyner DO 07/20/2012 Hospital David Joyner DO 07/13/2012 [facility] David Joyner DO 07/11/2012 Office visit Kaylynn Mendez GAUGE INSPECTOR 06/27/2012 Hospital Odell Tierney MD 06/21/2012 Office visit David Joyner DO 06/21/2012 Office visit Odell Tierney MD 06/20/2012 Office visit Brittni Yanez GAUGE INSPECTOR 06/06/2012 Office visit Odell Tierney MD 05/03/2012 Office visit Kaylynn Mendez GAUGE INSPECTOR 04/28/2012 Office visit Brittni Yanez GAUGE INSPECTOR 04/11/2012 Office visit Kaylynn Mendez GAUGE INSPECTOR 04/06/2012 [facility] John Hoskins MD 03/30/2012 Office visit Kaylynn Mendez GAUGE INSPECTOR 03/15/2012 Office visit Kaylynn Mendez GAUGE INSPECTOR 03/15/2012 Office visit Odell Tierney MD 02/09/2012 Office visit Kaylynn Mendez GAUGE INSPECTOR 12/23/2011 Office visit Kaylynn Mendez GAUGE INSPECTOR 11/02/2011 Office visit Kaylynn Mendez GAUGE INSPECTOR 10/14/2011 Office visit Kaylynn Mendez GAUGE INSPECTOR 09/27/2011 Office visit Kaylynn Mendez GAUGE INSPECTOR 08/19/2011 Hospital John Hoskins MD 08/18/2011 [facility] John Hoskins MD 08/18/2011 Office visit Kaylynn Mendez GAUGE INSPECTOR 08/02/2011 Office visit Kaylynn Mendez GAUGE INSPECTOR 07/08/2011 Office visit Kaylynn Mendez GAUGE INSPECTOR 07/05/2011 Office visit Odell Tierney MD 06/15/2011 Office visit Kaylynn Mendez GAUGE INSPECTOR 05/14/2011 Office visit Kaylynn Mendez GAUGE INSPECTOR 05/11/2011 Office visit Odell Tierney MD 04/28/2011 Office visit Kaylynn Mendez GAUGE INSPECTOR 03/02/2011 Office visit Chadd Norris DO 02/17/2011 Office visit Chadd Norris DO 01/19/2011 Office visit Odell Tierney MD 12/16/2010 Office visit Odell Tierney MD 12/02/2010 Office visit Yoan Castaneda MD 11/24/2010 Office visit hCadd Norris DO 11/17/2010 Office visit Chadd Norris DO 10/01/2010 Office visit Odell iTerney MD 09/02/2010 Office visit Odell Tierney MD [...]
--- OUTSIDE RECORDS SUMMARY | 2018-05-10 01:24 | XMS REPORT ---
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 [employer] Lancets 33 gauge miscellaneous misc 01/21/2016 use as directed Ad[employer] Security miscellaneous strip 01/21/2016 07/19/2016 Test 2x daily, [...] 08/27/2014 use as directed for 99 days Hawthorne 5-325 mg oral tablet 06/17/2014 06/27/2014 take [...] a day as needed for 30 days pcimfahp-oshcxkncs-BP 3.5-10,000-1 mg/mL-unit/mL-% otic drops,suspension 201401/08/2015 instill 4 [...] Reviewed 04/28/2011 12:00 AM Decadron 1 mg ND#[id number] (Jr) Reviewed 04/28/2011 12:00 AM Depo-Medrol 80 mg ND#[id number]-Yfwjjqdl Reviewed 09/02/2015 12:00 AM Toradol 60 Mg NDC#9171-7744-52 Reviewed 09/02/2015 12:00 AM Phenergan, Up to 50 Mg RHC Medicaid Reviewed 09/16/2015 12:00 AM Toradol 60 Mg ND#6955-9721-11 Reviewed 09/16/2015 12:00 AM Phenergan Up to 50 mg RHC Medicare Reviewed 05/11/2011 12:00 AM N BLOCK INJ OCCIPITAL Reviewed 05/11/2011 12:00 AM Kenalog Dp-07136-1982-20 ANNA Reviewed 11/13/2015 12:00 AM ASSAY OF [...] Reviewed 07/08/2011 12:00 AM Toradol,15mg [facility]#[id number], [place] Reviewed 07/08/2011 12:00 AM Phenergan 50 Mg Im [facility] 3511-0604-60 [place] Reviewed 01/21/2016 12:00 AM ECG MONIT/REPRT UP TO 48 HRS Returned 08/02/2011 12:00 AM THER/PROPH/DIAG INJ SC/IM Reviewed 08/02/2011 12:00 AM Decadron 1 mg [facility]#[id number] (Jr) Reviewed 08/02/2011 12:00 AM Depo-Medrol 80 mg [facility]#[id number]-Tpwnyknd Reviewed 03/05/2016 12:00 AM COMPLETE CBC W/AUTO DIFF WBC Returned 03/05/2016 12:00 AM STREP A ASSAY W/OPTIC Returned 03/05/2016 12:00 AM C-REACTIVE PROTEIN Returned 03/18/2016 12:00 AM [facility] MEDICARE - flu vaccine administration Reviewed 03/18/2016 12:00 AM INFLUENZA VACCINE QUADRIVALENT 3 YRS PLUS IM Reviewed 04/15/2016 12:00 AM Screening mammography, bilateral Reviewed 04/16/2016 12:00 AM Consult/Referral Reviewed 05/03/2016 12:00 AM METABOLIC PANEL TOTAL CA Returned 05/03/2016 12:00 AM COMPLETE CBC W/AUTO DIFF WBC Returned 09/27/2011 12:00 AM THER/PROPH/DIAG INJ SC/IM Reviewed 09/27/2011 12:00 AM Depo-Medrol 80 mg [facility]#[id number]-Khwxjoeb Reviewed 10/14/2011 12:00 AM X-RAY EXAM OF ABDOMEN Reviewed 10/14/2011 12:00 AM URINALYSIS AUTO W/O SCOPE Reviewed 12/23/2011 12:00 AM THER/PROPH/DIAG INJ SC/IM Reviewed 12/23/2011 12:00 AM Decadron 1 mg NDC#[id number] (Jr) Reviewed 12/23/2011 12:00 AM Depo-Medrol 80 mg NDC#[id number]-Dduyinur Reviewed 02/09/2012 12:00 AM THER/PROPH/DIAG INJ SC/IM Reviewed 02/09/2012 12:00 AM Decadron 1 mg NDC#[id number] (Jr) Reviewed 02/09/2012 12:00 AM Depo-Medrol 80 mg NDC#[id number]-Rbswkkjl Reviewed 03/15/2012 12:00 AM N BLOCK INJ OCCIPITAL Reviewed 03/15/2012 12:00 AM Kenalog Zn-[address]-20 ANNA Reviewed 04/11/2012 12:00 AM COMPLETE CBC W/AUTO DIFF WBC Reviewed 04/11/2012 12:00 AM COMPREHEN METABOLIC PANEL Reviewed 04/11/2012 12:00 AM LIPID PANEL Reviewed 04/11/2012 12:00 AM ASSAY THYROID STIM HORMONE Reviewed 06/20/2012 12:00 AM THER/PROPH/DIAG INJ SC/IM Reviewed 06/20/2012 12:00 AM Decadron, Per 1 Mg ND# [address]-18 Reviewed 06/20/2012 12:00 AM Depo-Medrol, Per 80 Mg ND#9757-9584-07 Reviewed 09/06/2012 12:00 AM N BLOCK INJ OCCIPITAL Reviewed 09/06/2012 12:00 AM Kenalog Bj-[address]-20 ANNA Reviewed 09/06/2012 12:00 AM X-RAY EXAM RIBS UNI 2 VIEWS Reviewed 09/26/2012 12:00 AM THER/PROPH/DIAG INJ SC/IM Reviewed 09/26/2012 12:00 AM Decadron, Per 1 Mg NDC# [address]-65 Reviewed 09/26/2012 12:00 AM Depo-Medrol, Per 80 Mg NDC#9861-4228-64 Reviewed 10/03/2012 12:00 AM URINALYSIS AUTO W/O SCOPE Reviewed 10/03/2012 12:00 AM THER/PROPH/DIAG INJ SC/IM Reviewed 10/03/2012 12:00 AM Toradol 60 Mg NDC#6958-1968-12 Reviewed 10/03/2012 12:00 AM Phenergan, 25Mg NDC#0543-2575-13 Reviewed 10/19/2012 12:00 AM N BLOCK INJ OCCIPITAL Reviewed 10/19/2012 12:00 AM Kenalog, Per 10 Mg [facility]#4507-8681-93 Reviewed 10/19/2012 12:00 AM Toradol 30 Mg [facility]#4714-1438-91 Reviewed 10/19/2012 12:00 AM THER/PROPH/DIAG INJ SC/IM Reviewed 10/31/2012 12:00 AM COMPLETE CBC W/AUTO DIFF WBC Reviewed 10/31/2012 12:00 AM COMPREHEN METABOLIC PANEL Reviewed 10/31/2012 12:00 AM LIPID PANEL Reviewed 11/03/2012 12:[address] THORAX W/O & W/DYE Reviewed 11/08/2012 12:00 AM N BLOCK INJ OCCIPITAL Reviewed 11/08/2012 12:00 AM Kenalog Km-[address]-20 ANNA Reviewed 11/27/2012 12:00 AM COMPLETE CBC [...] Decadron, Per 1 Mg [facility]# [address]-69 Reviewed 01/25/2013 12:00 AM Depo-Medrol, Per 80 Mg [facility]#8059-8559-28 Reviewed 01/26/2013 12:00 AM IMMUNOTHERAPY INJECTIONS Reviewed [...] Decadron, Per 1 Mg [facility]# [address]-57 Reviewed 05/16/2013 12:00 AM Depo-Medrol, Per 80 Mg [facility]#2567-3751-62 Reviewed 05/31/2013 12:00 AM IMMUNOTHERAPY INJECTIONS Reviewed 06/08/2013 12:00 AM IMMUNOTHERAPY INJECTIONS Reviewed 06/14/2013 12:00 AM IMMUNOTHERAPY INJECTIONS Reviewed 06/28/2013 12:00 AM IMMUNOTHERAPY INJECTIONS Reviewed 07/12/2013 12:00 AM X-RAY EXAM RIBS UNI 2 VIEWS Reviewed 07/18/2013 12:00 AM Toradol 60 Mg [facility]#6576-6087-75 Reviewed 07/18/2013 12:00 AM THER/PROPH/DIAG INJ SC/IM Reviewed 08/23/2013 12:00 AM COMPLETE CBC W/AUTO DIFF WBC Reviewed 08/23/2013 12:00 AM COMPREHEN METABOLIC PANEL Reviewed 08/23/2013 12:00 AM LIPID PANEL Reviewed 08/31/2013 12:00 AM X-RAY EXAM OF LOWER LEG Reviewed 09/04/2013 12:00 AM IMMUNOTHERAPY INJECTIONS Reviewed 09/14/2013 12:00 AM THER/PROPH/DIAG INJ SC/IM Reviewed 09/14/2013 12:00 AM Decadron, Per 1 Mg [facility]# [address]-20 Reviewed 09/14/2013 12:00 AM Depo-Medrol, Per 80 Mg [facility]#9630-2402-77 Reviewed 09/20/2013 12:00 AM IMMUNOTHERAPY INJECTIONS Reviewed [...] INJ OCCIPITAL Reviewed 12/10/2009 12:00 AM Kenalog Qh-[address]-20 ANNA Reviewed 12/16/2009 12:00 AM HIV-1ANTIBODY Reviewed 12/16/2009 12:00 AM COMPLETE CBC W/AUTO DIFF WBC Reviewed 12/16/2009 12:00 AM METABOLIC PANEL TOTAL CA Reviewed 12/16/2009 12:00 AM Type and screen Reviewed 12/16/2009 12:00 AM PROTHROMBIN TIME Reviewed 12/16/2009 12:00 AM THROMBOPLASTIN TIME PARTIAL Reviewed 03/18/2010 12:00 AM DRAIN/INJ JOINT/BURSA W/O US Reviewed 03/18/2010 12:00 AM Kenalog Vm-[address]-20 ANNA Reviewed 11/21/2013 12:00 AM RADEX HAND MINIMUM 3 VIEWS Reviewed 06/03/2010 12:00 AM INJ TRIGGER POINT 1/2 MUSCL Reviewed 06/03/2010 12:00 AM Kenalog per 10Mg -[facility]#[address]-98(Niall) Reviewed 12/05/2013 12:00 AM COMPLETE CBC W/AUTO [...] per 10Mg Im-[facility]#[address]-00(Niall) Reviewed 2014 12:00 AM COMPLETE CBC W/AUTO [...] INJ OCCIPITAL Reviewed 10/01/2010 12:00 AM Kenalog Vm-[address]-20 ANNA Reviewed 07/25/2014 12:00 AM THER/PROPH/DIAG INJ [...] 141 Influenza 04/24/2014 sanofi pasteur PMC Fluzone [id number] Intramuscular Left Upper Arm 02/27/2014 01/15/2014 141 Influenza 02/13/2015 sanofi pasteur PMC Fluzone [id number] Intramuscular Left Deltoid 02/13/2015 01/03/2015 140 Tdap 06/06/2015 [employer] SKB BOOSTRIX [id number] Intramuscular Left Deltoid 06/06/2015 07/23/2014 115 Influenza 03/18/2016 sanofi pasteur PMC Fluzone [id number] Intramuscular Left Deltoid 03/17/2016 01/03/2015 141 History [...] 1:38PM Tobacco dependence Apr 14 2016 1:38PM Payers Insurance Name Company Name Plan Name Plan Number Policy Number Policy Group Number Start Date Medicare Part A Medicare RHC [id number] N/A [facility] RHC Comm [id number] N/A Medicare Part A Medicare - Lab/Xray [id number] N/A Medicare Part B Medicare Of [place] [id number] Monday, February 28, 2000 [place] [employer] [place] [id number] Tuesday, November 10, 2009 Medicare Part A Medicare Part A [id number] N/A [place] 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 - 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 [place] 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 - RHC [id number] [facility] Comm Plan of [id number] Wednesday, May 30, 2012 History of Encounters Visit Date Visit Type Provider 05/13/2016 Office visit Heena Dumont MD 05/03/2016 Office visit Heena Dumont MD 04/26/2016 Office visit Kaylynn Mendez PARENT COACH 04/14/2016 Office visit Heena Dumont MD 04/13/2016 Office visit Kaylynn Mendez PARENT COACH 04/02/2016 Office visit Lena El PARENT COACH 04/02/2016 Office visit Heena Dumont MD 03/26/2016 Office visit Yesica Falcon PARENT COACH 03/17/2016 Office visit Heena Dumont MD 03/05/2016 Office visit Kaylynn Mendez PARENT COACH 02/16/2016 Office visit Heena Dumont MD 02/14/2016 Office visit Na Jones PARENT COACH 01/16/2016 Office visit Heena Dumont MD 12/16/2015 Office visit Heena Dumont MD 11/24/2015 Office visit Kaylynn Mendez PARENT COACH 11/18/2015 Office visit Heena Dumont MD 11/03/2015 Office visit Sundeep Drew PARENT COACH 10/20/2015 Office visit Kaylynn Walker PARENT COACH 09/23/2015 Office visit Kaylynn Mendez PARENT COACH 09/16/[address] Pepe Figueroa MD 09/02/2015 Office visit Kaylynn Walker PARENT COACH 09/01/2015 Office visit Kaylynn Walker PARENT COACH 07/30/2015 Office visit Heena Dumont MD 07/15/2015 Office visit Kaylynn Mendez PARENT COACH 07/04/2015 Office visit Heena Dumont MD 06/06/2015 Office visit Heena Dumont MD 06/06/2015 Office visit Kaylynn Mendez PARENT COACH 06/02/2015 Office visit Kaylynn Walker PARENT COACH 05/26/2015 Office visit Kaylynn Mendez PARENT COACH 05/20/2015 Office visit Kaylynn Mendez PARENT COACH 05/08/2015 Office visit Heena Dumont MD 05/06/2015 Office visit Kaylynn Mendez PARENT COACH 04/29/2015 Office visit Kaylynn Mendez PARENT COACH 03/27/2015 Voided Brittni Yanez PARENT COACH 03/21/2015 Office visit Heena Dumont MD 03/12/2015 Office visit Kaylynn Mendez PARENT COACH 02/26/2015 Office visit Brittni Yanez PARENT COACH 02/13/2015 Office visit Heena Dumont MD 01/15/2015 Office visit Brittni Yanez PARENT COACH 01/13/2015 Office visit Heena Dumont MD 01/08/[address] Carol oFwler MD 01/01/2015 Office visit Brittni Yanez PARENT COACH 12/13/2014 Office visit Heena Dumont MD 11/27/2014 Office visit Kaylynn Mendez PARENT COACH 11/14/2014 Office visit Heena Dumont MD 10/18/2014 Office visit Heena Dumont MD 10/17/2014 [facility] W Eliseo Hoskins MD 10/09/2014 Office visit Heena Dumont MD 09/25/2014 Office visit Heena Dumont MD 09/17/2014 Office visit Kaylynn Mendez PARENT COACH 09/04/2014 Office visit Heena Dumont MD 08/28/2014 Office visit Kaylynn Mendez PARENT COACH 08/23/2014 [facility] John Hoskins MD 08/01/2014 Office visit Kaylynn Mendez PARENT COACH 07/29/2014 Office visit Heena Dumont MD 07/25/2014 Nurse visit Heena Dumont MD 07/17/2014 Office visit Kaylynn Mendez PARENT COACH 07/11/2014 Office visit Heena Dumont MD 07/01/2014 Office visit Heena Dumont MD 06/25/2014 Office visit Kaylynn Walker PARENT COACH 06/12/2014 Office visit Kaylynn Walker PARENT COACH 06/06/2014 Office visit Kaylynn Mendez PARENT COACH 05/27/2014 Office visit Heena Dumont MD 04/20/2014 Office visit Yesica Falcon PARENT COACH 03/29/2014 Office visit Na Jones PARENT COACH 03/15/2014 Office visit Heena Dumont MD 2014 Office visit Heena Dumont MD 2014 [facility] John Hoskins MD 02/27/2014 Nurse visit Heena Dumont MD 02/13/2014 Office visit Lena El PARENT COACH 02/07/2014 Office visit Heena Dumont MD 02/03/2014 Office visit Na Jones PARENT COACH 01/30/2014 Office visit Kaylynn Mendez PARENT COACH 01/24/2014 Office visit Sundeep Russell PARENT COACH 01/16/2014 Office visit Kaylynn Mendez PARENT COACH 01/10/2014 Nurse visit Kaylynn Mendez PARENT COACH 01/08/2014 Office visit Kaylynn Walker PARENT COACH 12/05/2013 Office visit Kaylynn Walker PARENT COACH 11/21/2013 Office visit Kaylynn Mendez PARENT COACH 10/23/2013 Office visit Brittni Yanez PARENT COACH 10/17/2013 Nurse visit Heena Dumont MD 10/12/2013 Office visit Kaylynn Mendez PARENT COACH 10/02/2013 Office visit Heena Dumont MD 09/20/2013 Nurse visit Kaylynn Mendez PARENT COACH 09/20/2013 Voided Heena Dumont MD 09/14/2013 Office visit Kaylynn Walker PARENT COACH 09/05/2013 Office visit Sundeep Russell PARENT COACH 09/04/2013 Nurse visit Kaylynn Walker PARENT COACH 08/31/2013 Office visit Kaylynn Walker PARENT COACH 08/23/2013 Office visit Heena Dumont MD 08/10/2013 Office visit Kaylynn Mendez PARENT COACH 07/25/2013 Office visit Kaylynn Walker PARENT COACH 07/18/2013 Office visit Kaylynn Walker PARENT COACH 07/12/2013 Office visit Kaylynn Walker PARENT COACH 06/28/2013 Nurse visit Kaylynn Walker PARENT COACH 06/14/2013 Nurse visit Kaylynn Walker PARENT COACH 06/08/2013 Nurse visit Kaylynn Walker PARENT COACH 05/31/2013 Nurse visit Chadd Norris DO 05/18/2013 Office visit Terese Davidson MD 05/16/2013 Office visit Kaylynn Walker PARENT COACH 05/09/2013 Office visit Kaylynn Walker PARENT COACH 04/29/2013 [facility] John Hoskins MD 04/25/2013 Nurse visit Kaylynn Walker PARENT COACH 04/17/2013 Office visit Kaylynn Walker PARENT COACH 04/03/2013 Nurse visit Kaylynn Walker PARENT COACH 04/03/2013 Office visit Terese Davidson MD 03/28/2013 Office visit Sundeep Russell PARENT COACH 03/21/2013 Office visit Kaylynn Mendez PARENT COACH 03/20/2013 Office visit Terese Davidson MD 03/14/2013 Nurse visit Kaylynn Walker PARENT COACH 03/05/2013 Nurse visit Kaylynn Walker PARENT COACH 02/19/2013 Office visit Terese Davidson MD 02/16/2013 Nurse visit Kaylynn Walker PARENT COACH 02/09/2013 Office visit Sundeep Russell PARENT COACH 02/08/2013 Nurse visit Kaylynn Walker PARENT COACH 02/01/2013 Nurse visit Kaylynn Walker PARENT COACH 01/26/2013 Nurse visit Sabrina Andrea AUTOMOTIVE UPHOLSTERER 01/25/2013 Office visit Kaylynn Walker PARENT COACH 01/22/2013 Office visit Yoan Castaneda MD 01/18/2013 Nurse visit Kaylynn Walker PARENT COACH 01/11/2013 Nurse visit Kaylynn Walker PARENT COACH 01/05/2013 Nurse visit Kaylynn Walker PARENT COACH 12/29/2012 Office visit Kaylynn Walker PARENT COACH 11/27/2012 Office visit Kaylynn Mendez PARENT COACH 11/08/2012 Office visit Odell Tierney MD 11/08/2012 Voided Odell Tierney MD 11/07/2012 Office visit Kaylynn Mendez PARENT COACH 10/31/2012 [facility] John Hoskins MD 10/31/2012 Office visit Kaylynn Walker PARENT COACH 10/19/2012 Office visit Genoveva Ayala PARENT COACH 10/10/2012 Office visit Kaylynn Walker PARENT COACH 10/03/2012 Office visit Kaylynn Walker PARENT COACH 09/26/2012 Office visit Kaylynn Walker PARENT COACH 09/06/2012 Office visit Kaylynn Walker PARENT COACH 09/06/2012 Office visit Odell Tierney MD 08/31/2012 Voided Kaylynn Mendez PARENT COACH 07/28/2012 Office visit Kaylynn Walker PARENT COACH 07/27/2012 Office visit David Joyner DO 07/20/2012 [facility] David Joyner DO 07/13/2012 Hospital David Joyner DO 07/11/2012 Office visit Kaylynn Mendez PARENT COACH 06/27/2012 Hospital Odell Tierney MD 06/21/2012 Office visit David Joyner DO 06/21/2012 Office visit Odell Tierney MD 06/20/2012 Office visit Brittni Yanez PARENT COACH 06/06/2012 Office visit Odell Tierney MD 05/03/2012 Office visit Kaylynn Mendez PARENT COACH 04/28/2012 Office visit Brittni Yanez PARENT COACH 04/11/2012 Office visit Kaylynn Mendez PARENT COACH 04/06/2012 Hospital John Hoskins MD 03/30/2012 Office visit Kaylynn Mendez PARENT COACH 03/15/2012 Office visit Kaylynn Mendez PARENT COACH 03/15/2012 Office visit Odell Tierney MD 02/09/2012 Office visit Kaylynn Mendez PARENT COACH 12/23/2011 Office visit Kaylynn Mendez PARENT COACH 11/02/2011 Office visit Kaylynn Mendez PARENT COACH 10/14/2011 Office visit Kaylynn Mendez PARENT COACH 09/27/2011 Office visit Kaylynn Mendez PARENT COACH 08/19/2011 Hospital John Hoskins MD 08/18/2011 Hospital John Hoskins MD 08/18/2011 Office visit Kaylynn Mendez PARENT COACH 08/02/2011 Office visit Kaylynn Mendez PARENT COACH 07/08/2011 Office visit Kaylynn Mendez PARENT COACH 07/05/2011 Office visit Odell Tierney MD 06/15/2011 Office visit Kaylynn Mendez PARENT COACH 05/14/2011 Office visit Kaylynn Mendez PARENT COACH 05/11/2011 Office visit Odell Tierney MD 04/28/2011 Office visit Kaylynn Mendez PARENT COACH 03/02/2011 Office visit Chadd Norris DO [...]
--- OUTSIDE RECORDS SUMMARY | 2018-05-10 01:44 | XMS REPORT ---
Author Author Kaylynn Mendez Organization [facility] Address [address] [place], [place] [id number] Care Team Providers Care Email Production Specialist Name Role Phone Kaylynn Mendez PCP [...] dipstick in office (automated) 11/02/2016 12:00 AM CBC With Auto Differential 11/23/2016 12:00 AM CMP (comprehensive metabolic panel) 11/23/2016 12:00 AM CX CHEST 2 VIEWS 11/23/2016 12:00 AM D-dimer assay, semi-quantitative 11/23/2016 12:00 AM Troponin 1 measurement 11/23/2016 12:00 AM EKG. 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 qszoqjgd-xteuvjkzz-RD 3.5-10,000-1 mg/mL-unit/mL-% otic drops,suspension 201607/23/2016 instill 4 [...] Reviewed 04/28/2011 12:00 AM Decadron 1 mg ND#[id number] (Jr) Reviewed 04/28/2011 12:00 AM Depo-Medrol 80 mg ND#[id number]-Zkzfhnwn Reviewed 09/02/2015 12:00 AM Toradol 60 Mg ND#3004-0283-37 Reviewed 09/02/2015 12:00 AM Phenergan, Up to 50 Mg RHC Medicaid Reviewed 09/16/2015 12:00 AM Toradol 60 Mg ND#4881-5668-77 Reviewed 09/16/2015 12:00 AM Phenergan Up to 50 mg RHC Medicare Reviewed 05/11/2011 12:00 AM N BLOCK INJ OCCIPITAL Reviewed 05/11/2011 12:00 AM Kenalog Kg-[address]-20 ANNA Reviewed 11/13/2015 12:00 AM ASSAY OF [...] INJ SC/IM Reviewed 07/08/2011 12:00 AM Toradol,15mg ND#[id number], [place] Reviewed 07/08/2011 12:00 AM Phenergan 50 Mg Im [facility] 2755-1867-22 [place] Reviewed 01/21/2016 12:00 AM ECG MONIT/REPRT UP TO 48 HRS Returned 08/02/2011 12:00 AM THER/PROPH/DIAG INJ SC/IM Reviewed 08/02/2011 12:00 AM Decadron 1 mg [facility]#[id number] (Jr) Reviewed 08/02/2011 12:00 AM Depo-Medrol 80 mg [facility] [place]#[id number]-Uacpxszn Reviewed 03/05/2016 12:00 AM COMPLETE CBC W/AUTO DIFF WBC Reviewed 03/05/2016 12:00 AM STREP A ASSAY W/OPTIC Reviewed 03/05/2016 12:00 AM C-REACTIVE PROTEIN Reviewed 03/18/2016 12:00 AM [facility] MEDICARE - flu vaccine administration [...] Reviewed 09/27/2011 12:00 AM Depo-Medrol 80 mg [facility] [place]#[id number] Reviewed 09/27/2011 12:00 AM Depo-Medrol 40 mg [facility] [place]#[id number] Reviewed 07/06/2016 12:00 AM CHEST X-RAY 4/> [...] Reviewed 12/23/2011 12:00 AM Decadron 1 mg NDC#[id number] (Jr) Reviewed 12/23/2011 12:00 AM Depo-Medrol 80 mg NDC#[id number]-Mshvzklc Reviewed 11/02/2016 11:45 AM URINALYSIS AUTO W/O SCOPE Reviewed 02/09/2012 12:00 AM THER/PROPH/DIAG INJ SC/IM Reviewed 02/09/2012 12:00 AM Decadron 1 mg NDC#[id number] (Jr) Reviewed 02/09/2012 12:00 AM Depo-Medrol 80 mg NDC#[id number]-Khgvnoab Reviewed 03/15/2012 12:00 AM N BLOCK INJ OCCIPITAL Reviewed 03/15/2012 12:00 AM Kenalog Nd-[address]-20 ANNA Reviewed 04/11/2012 12:00 AM COMPLETE CBC W/AUTO DIFF WBC Reviewed 04/11/2012 12:00 AM COMPREHEN METABOLIC PANEL Reviewed 04/11/2012 12:00 AM LIPID PANEL Reviewed 04/11/2012 12:00 AM ASSAY THYROID STIM HORMONE Reviewed 04/11/2012 12:00 AM DESTRUCT PREMALG LES 2-14 Reviewed 06/20/2012 12:00 AM THER/PROPH/DIAG INJ SC/IM Reviewed 06/20/2012 12:00 AM Decadron, Per 1 Mg NDC# [address]-42 Reviewed 06/20/2012 12:00 AM Depo-Medrol, Per 80 Mg NDC#8062-9388-53 Reviewed 09/06/2012 12:00 AM N BLOCK INJ OCCIPITAL Reviewed 09/06/2012 12:00 AM Kenalog Qu-[address]-20 ANNA Reviewed 09/06/2012 12:00 AM X-RAY EXAM RIBS UNI 2 VIEWS Reviewed 09/26/2012 12:00 AM THER/PROPH/DIAG INJ SC/IM Reviewed 09/26/2012 12:00 AM Decadron, Per 1 Mg [facility] [place]# [address]-12 Reviewed 09/26/2012 12:00 AM Depo-Medrol, Per 80 Mg [facility] [place]#9692-6043-19 Reviewed 10/03/2012 12:00 AM URINALYSIS AUTO W/O SCOPE Reviewed 10/03/2012 12:00 AM THER/PROPH/DIAG INJ SC/IM Reviewed 10/03/2012 12:00 AM Toradol 60 Mg [facility] [place]#1980-0971-21 Reviewed 10/03/2012 12:00 AM Phenergan, 25Mg [facility] [place]#7498-6787-14 Reviewed 10/19/2012 12:00 AM N BLOCK INJ OCCIPITAL Reviewed 10/19/2012 12:00 AM Kenalog, Per 10 Mg [facility] [place]#8236-9898-90 Reviewed 10/19/2012 12:00 AM Toradol 30 Mg [facility] [place]#0475-7527-78 Reviewed 10/19/2012 12:00 AM THER/PROPH/DIAG INJ SC/IM Reviewed 10/31/2012 12:00 AM COMPLETE CBC W/AUTO DIFF WBC Reviewed 10/31/2012 12:00 AM COMPREHEN METABOLIC PANEL Reviewed 10/31/2012 12:00 AM LIPID PANEL Reviewed 10/31/2012 12:00 AM ELECTROCARDIOGRAM COMPLETE Reviewed 11/03/2012 12:[address] THORAX W/O & W/DYE Reviewed 11/08/2012 12:00 AM N BLOCK INJ OCCIPITAL Reviewed 11/08/2012 12:00 AM Kenalog Bv-[address]-20 ANNA Reviewed 11/27/2012 12:00 AM COMPLETE CBC [...] 01/25/2013 12:00 AM Decadron, Per 1 Mg [facility] [place]# [address]-61 Reviewed 01/25/2013 12:00 AM Depo-Medrol, Per 80 Mg [facility] [place]#9109-0547-76 Reviewed 01/26/2013 12:00 AM IMMUNOTHERAPY ONE INJECTION [...] 05/16/2013 12:00 AM Decadron, Per 1 Mg [facility] [place]# [address]-82 Reviewed 05/16/2013 12:00 AM Depo-Medrol, Per 80 Mg [facility] [place]#5969-0708-43 Reviewed 05/31/2013 12:00 AM IMMUNOTHERAPY INJECTIONS Reviewed 06/08/2013 12:00 AM IMMUNOTHERAPY INJECTIONS Reviewed 06/14/2013 12:00 AM IMMUNOTHERAPY INJECTIONS Reviewed 06/28/2013 12:00 AM IMMUNOTHERAPY INJECTIONS Reviewed 07/12/2013 12:00 AM X-RAY EXAM RIBS UNI 2 VIEWS Reviewed 07/18/2013 12:00 AM Toradol 60 Mg [facility] [place]#5017-6563-19 Reviewed 07/18/2013 12:00 AM THER/PROPH/DIAG INJ SC/IM Reviewed 08/23/2013 12:00 AM COMPLETE CBC W/AUTO DIFF WBC Reviewed 08/23/2013 12:00 AM COMPREHEN METABOLIC PANEL Reviewed 08/23/2013 12:00 AM LIPID PANEL Reviewed 08/31/2013 12:00 AM X-RAY EXAM OF LOWER LEG Reviewed 09/04/2013 12:00 AM IMMUNOTHERAPY INJECTIONS Reviewed 09/14/2013 12:00 AM THER/PROPH/DIAG INJ SC/IM Reviewed 09/14/2013 12:00 AM Decadron, Per 1 Mg [facility] [place]# [address]-19 Reviewed 09/14/2013 12:00 AM Depo-Medrol, Per 80 Mg [facility] [place]#8787-5124-50 Reviewed 09/20/2013 12:00 AM IMMUNOTHERAPY INJECTIONS Reviewed [...] INJ OCCIPITAL Reviewed 12/10/2009 12:00 AM Quentin Dm-[address]-20 ANNA Reviewed 12/16/2009 12:00 AM HIV-1ANTIBODY Reviewed 12/16/2009 12:00 AM COMPLETE CBC W/AUTO DIFF WBC Reviewed 12/16/2009 12:00 AM METABOLIC PANEL TOTAL CA Reviewed 12/16/2009 12:00 AM Type and screen Reviewed 12/16/2009 12:00 AM PROTHROMBIN TIME Reviewed 12/16/2009 12:00 AM THROMBOPLASTIN TIME PARTIAL Reviewed 03/18/2010 12:00 AM DRAIN/INJ JOINT/BURSA W/O US Reviewed 03/18/2010 12:00 AM Quentin Id-[address]-20 ANNA Reviewed 11/21/2013 12:00 AM RADEX HAND MINIMUM 3 VIEWS Reviewed 06/03/2010 12:00 AM INJ TRIGGER POINT 1/2 MUSCL Reviewed 06/03/2010 12:00 AM Kenalog per 10Mg Im-[facility]#[address]-44(Niall) Reviewed 12/05/2013 12:00 AM COMPLETE CBC W/AUTO [...] 07/23/2010 12:00 AM Kenalog per 10Mg [facility]#[address]-34(Niall) Reviewed 2014 12:00 AM COMPLETE CBC W/AUTO [...] INJ OCCIPITAL Reviewed 10/01/2010 12:00 AM Kenalog Ed-[address]-20 ANNA Reviewed 07/25/2014 12:00 AM THER/PROPH/DIAG INJ [...] Quant,IgM <0.80 RMSF , IgG, EIA Negative [facility] Spotted Fever,IgM 0.51 E. chaffeensis [...] 141 Influenza 04/24/2014 sanofi pasteur PMC Fluzone [id number] Intramuscular Left Upper Arm 02/27/2014 01/15/2014 141 Influenza 02/13/2015 sanofi pasteur PMC Fluzone [id number] Intramuscular Left Deltoid 02/13/2015 01/03/2015 140 Tdap 06/06/2015 [employer] SKB BOOSTRIX [id number] Intramuscular Left Deltoid 06/06/2015 07/23/2014 115 Influenza 03/18/2016 sanofi pasteur PMC Fluzone [id number] Intramuscular Left Deltoid 03/17/2016 01/03/2015 141 History [...] Number Start Date Medicare RHC Medicare RHC [id number] N/A [facility] - [facility] - [facility] RHC Comm [id number] N/A Medicare Part A Medicare - Lab/Xray [id number] N/A Medicare Part B Medicare Of [place] [id number] Monday, February 28, 2000 [place] [facility] [place] [facility] [place] [facility] [place] [id number] Tuesday, November 10, 2009 Medicare Part A Medicare Part A [id number] N/A [place] [employer] - RHC [place] [employer] - RHC [id number] May [facility] Plan of [id number] Wednesday, May 30, 2012 History of Encounters Visit Date Visit Type Provider 11/23/2016 Office visit Kaylynn Mendez APRN 11/17/2016 Office visit Kaylynn Mendez APRN 11/05/2016 Office visit Riccardo Cardoza MD 11/02/2016 Office visit Heena Duomnt MD 10/06/2016 Office visit Kaylynn Mendez APRN 09/22/2016 Office visit Heena Dumont MD 09/09/2016 Office visit Kaylynn Mendez APRN 08/27/2016 Office visit Riccardo Cardoza MD 08/26/2016 Office visit Heena Dumont MD 07/09/2016 Office visit Riccardo Cardoza MD 07/06/2016 Office visit Heena Dumont MD 06/18/2016 Office visit Kaylynn Mendez ONLINE MEDIA BUYER 06/07/2016 Office visit Sundeep Russell ONLINE MEDIA BUYER 06/04/2016 Office visit Heena Dumont MD 05/13/2016 Office visit Heena Dumont MD 05/03/2016 Office visit Heena Dumont MD 04/26/2016 Office visit Kaylynn Mendez ONLINE MEDIA BUYER 04/14/2016 Office visit Heena Dumont MD 04/13/2016 Office visit Kaylynn Mendez ONLINE MEDIA BUYER 04/02/2016 Office visit Lena El ONLINE MEDIA BUYER 04/02/2016 Office visit Heena Dumont MD 03/26/2016 Office visit Yesica Falcon ONLINE MEDIA BUYER 03/17/2016 Office visit Heena Dumont MD 03/05/2016 Office visit Kaylynn Mendez ONLINE MEDIA BUYER 02/16/2016 Office visit Heena Dumont MD 02/14/2016 Office visit Na Jones ONLINE MEDIA BUYER 01/16/2016 Office visit Heena Dumont MD 12/16/2015 Office visit Heena Dumont MD 11/24/2015 Office visit Kaylynn Mendez ONLINE MEDIA BUYER 11/18/2015 Office visit Heena Dumont MD 11/03/2015 Office visit Sundeep Russell ONLINE MEDIA BUYER 10/20/2015 Office visit Kaylynn Mendez ONLINE MEDIA BUYER 09/23/2015 Office visit Kaylynn Mendez ONLINE MEDIA BUYER 09/16/[address] Pepe Figueroa MD 09/02/2015 Office visit Kaylynn Mendez ONLINE MEDIA BUYER 09/01/2015 Office visit Kaylynn Mendez ONLINE MEDIA BUYER 07/30/2015 Office visit Heena Dumont MD 07/15/2015 Office visit Kaylynn Mendez ONLINE MEDIA BUYER 07/04/2015 Office visit Heena Dumont MD 06/06/2015 Office visit Heena Dumont MD 06/06/2015 Office visit Kaylynn Mendez ONLINE MEDIA BUYER 06/02/2015 Office visit Kaylynn Walker ONLINE MEDIA BUYER 05/26/2015 Office visit Kaylynn Walker ONLINE MEDIA BUYER 05/20/2015 Office visit Kaylynn Mendez ONLINE MEDIA BUYER 05/08/2015 Office visit Heena Dumont MD 05/06/2015 Office visit Kaylynn Mendez ONLINE MEDIA BUYER 04/29/2015 Office visit Kaylynn Walker ONLINE MEDIA BUYER 03/27/2015 Voided Brittni Yanez ONLINE MEDIA BUYER 03/21/2015 Office visit Heena Dumont MD 03/12/2015 Office visit Kaylynn Mendez ONLINE MEDIA BUYER 02/26/2015 Office visit Brittni Yanez ONLINE MEDIA BUYER 02/13/2015 Office visit Heena Dumont MD 01/15/2015 Office visit Brittni Yanez ONLINE MEDIA BUYER 01/13/2015 Office visit Heena Dumont MD 01/08/[address] Carol Fowler MD 01/01/2015 Office visit Brittni Yanez ONLINE MEDIA BUYER 12/13/2014 Office visit Heena Dumont MD 11/27/2014 Office visit Kaylynn Mendez ONLINE MEDIA BUYER 11/14/2014 Office visit Heena Dumont MD 10/18/2014 Office visit Heena Dumont MD 10/17/2014 Hospital John Hoskins MD 10/09/2014 Office visit Heena Dumont MD 09/25/2014 Office visit Heena Dumont MD 09/17/2014 Office visit Kaylynn Mendez ONLINE MEDIA BUYER 09/04/2014 Office visit Heena Dumont MD 08/28/2014 Office visit Kaylynn Mendez ONLINE MEDIA BUYER 08/23/2014 [facility] Eliseo Hoskins MD 08/01/2014 Office visit Kaylynn Mendez ONLINE MEDIA BUYER 07/29/2014 Office visit Heena Dumont MD 07/25/2014 Nurse visit Heena Dumont MD 07/17/2014 Office visit Kaylynn Mendez ONLINE MEDIA BUYER 07/11/2014 Office visit Heena Dumont MD 07/01/2014 Office visit Heena Dumont MD 06/25/2014 Office visit Kaylynn Mendez ONLINE MEDIA BUYER 06/12/2014 Office visit Kaylynn Mendez ONLINE MEDIA BUYER 06/06/2014 Office visit Kaylynn Mendez ONLINE MEDIA BUYER 05/27/2014 Office visit Heena Dumont MD 04/20/2014 Office visit Yesica Falcon ONLINE MEDIA BUYER 03/29/2014 Office visit Na Jones ONLINE MEDIA BUYER 03/15/2014 Office visit Heena Dumont MD 2014 Office visit Heena Dumont MD 2014 [facility] John Hoskins MD 02/27/2014 Nurse visit Heena Dumont MD 02/13/2014 Office visit Lena El ONLINE MEDIA BUYER 02/07/2014 Office visit Heena Dumont MD 02/03/2014 Office visit Na Jones ONLINE MEDIA BUYER 01/30/2014 Office visit Kaylynn Mendez ONLINE MEDIA BUYER 01/24/2014 Office visit Sundeep Russell ONLINE MEDIA BUYER 01/16/2014 Office visit Kaylynn Mendez ONLINE MEDIA BUYER 01/10/2014 Nurse visit Kaylynn Mendez ONLINE MEDIA BUYER 01/08/2014 Office visit Kaylynn Mendez ONLINE MEDIA BUYER 12/05/2013 Office visit Kaylynn Mendez ONLINE MEDIA BUYER 11/21/2013 Office visit Kaylynn Walker ONLINE MEDIA BUYER 10/23/2013 Office visit Brittni Yanez ONLINE MEDIA BUYER 10/17/2013 Nurse visit Heena Dumont MD 10/12/2013 Office visit Kaylynn Mendez ONLINE MEDIA BUYER 10/02/2013 Office visit Heena Dumont MD 09/20/2013 Nurse visit Kaylynn Mendez ONLINE MEDIA BUYER 09/20/2013 Voided Heena Dumont MD 09/14/2013 Office visit Kaylynn Walker ONLINE MEDIA BUYER 09/05/2013 Office visit Sundeep Russell ONLINE MEDIA BUYER 09/04/2013 Nurse visit Kaylynn Walker ONLINE MEDIA BUYER 08/31/2013 Office visit Kaylynn Walker ONLINE MEDIA BUYER 08/23/2013 Office visit Heena Dumont MD 08/10/2013 Office visit Kaylynn Walker ONLINE MEDIA BUYER 07/25/2013 Office visit Kaylynn Walker ONLINE MEDIA BUYER 07/18/2013 Office visit Kaylynn Walker ONLINE MEDIA BUYER 07/12/2013 Office visit Kaylynn Walker ONLINE MEDIA BUYER 06/28/2013 Nurse visit Kaylynn Walker ONLINE MEDIA BUYER 06/14/2013 Nurse visit Kaylynn Walker ONLINE MEDIA BUYER 06/08/2013 Nurse visit Kaylynn Walker ONLINE MEDIA BUYER 05/31/2013 Nurse visit Chadd Norris DO 05/18/2013 Office visit Terese Davidson MD 05/16/2013 Office visit Kaylynn Mendez ONLINE MEDIA BUYER 05/09/2013 Office visit Kaylynn Mendez ONLINE MEDIA BUYER 04/29/2013 [facility] Eliseo Hoskins MD 04/25/2013 Nurse visit Kaylynn Walker ONLINE MEDIA BUYER 04/17/2013 Office visit Kaylynn Mendez ONLINE MEDIA BUYER 04/03/2013 Nurse visit Kaylynn Mendez ONLINE MEDIA BUYER 04/03/2013 Office visit Terese Davidson MD 03/28/2013 Office visit Sundeep Russell ONLINE MEDIA BUYER 03/21/2013 Office visit Kaylynn Mendez ONLINE MEDIA BUYER 03/20/2013 Office visit Terese Davidson MD 03/14/2013 Nurse visit Kaylynn Mendez ONLINE MEDIA BUYER 03/05/2013 Nurse visit Kaylynn Mendez ONLINE MEDIA BUYER 02/19/2013 Office visit Terese Davidson MD 02/16/2013 Nurse visit Kaylynn Mendez ONLINE MEDIA BUYER 02/09/2013 Office visit Sundeep Russell ONLINE MEDIA BUYER 02/08/2013 Nurse visit Kaylynn Walker ONLINE MEDIA BUYER 02/01/2013 Nurse visit Kaylynn Walker ONLINE MEDIA BUYER 01/26/2013 Nurse visit Sabrina Mendez EXERCISER HORSE 01/25/2013 Office visit Kaylynn Mendez ONLINE MEDIA BUYER 01/22/2013 Office visit Yoan Castaneda MD 01/18/2013 Nurse visit Kaylynn Walker ONLINE MEDIA BUYER 01/11/2013 Nurse visit Kaylynn Walker ONLINE MEDIA BUYER 01/05/2013 Nurse visit Kaylynn Walker ONLINE MEDIA BUYER 12/29/2012 Office visit Kaylynn Walker ONLINE MEDIA BUYER 11/27/2012 Office visit Kaylynn Andrea ONLINE MEDIA BUYER 11/08/2012 Office visit Odell Tierney MD 11/08/2012 Voided Odell Tierney MD 11/07/2012 Office visit Kaylynn Andrea ONLINE MEDIA BUYER 10/31/2012 [facility] John Hoskins MD 10/31/2012 Office visit Kaylynn Walker ONLINE MEDIA BUYER 10/19/2012 Office visit Genoveva Ayala ONLINE MEDIA BUYER 10/10/2012 Office visit Kaylynn Walker ONLINE MEDIA BUYER 10/03/2012 Office visit Kaylynn Walker ONLINE MEDIA BUYER 09/26/2012 Office visit Kaylynn Walker ONLINE MEDIA BUYER 09/06/2012 Office visit Kaylynn Andrea ONLINE MEDIA BUYER 09/06/2012 Office visit Odell Tierney MD 08/31/2012 Voided Kaylynn Mendez ONLINE MEDIA BUYER 07/28/2012 Office visit Kaylynn Mendez ONLINE MEDIA BUYER 07/27/2012 Office visit David Joyner DO 07/20/2012 [facility] DO 07/13/2012 [facility] DO 07/11/2012 Office visit Kaylynn Mendez ONLINE MEDIA BUYER 06/27/2012 [facility] Odell Tierney MD 06/21/2012 Office visit David Joyner DO 06/21/2012 Office visit Odell Tierney MD 06/20/2012 Office visit Brittni Yanez ONLINE MEDIA BUYER 06/06/2012 Office visit Odell Tierney MD 05/03/2012 Office visit Kaylynn Mendez ONLINE MEDIA BUYER 04/28/2012 Office visit Brittni Yanez ONLINE MEDIA BUYER 04/11/2012 Office visit Kaylynn Mendez ONLINE MEDIA BUYER 04/06/2012 [facility] John Hoskins MD 03/30/2012 Office visit Kaylynn Mendez ONLINE MEDIA BUYER 03/15/2012 Office visit Kaylynn Mendez ONLINE MEDIA BUYER 03/15/2012 Office visit Odell Tierney MD 02/09/2012 Office visit Kaylynn Mendez ONLINE MEDIA BUYER 12/23/2011 Office visit Kaylynn Walker ONLINE MEDIA BUYER 11/02/2011 Office visit Kaylynn Walker ONLINE MEDIA BUYER 10/14/2011 Office visit Kaylynn Mendez ONLINE MEDIA BUYER 09/27/2011 Office visit Kaylynn Mendez ONLINE MEDIA BUYER 08/19/2011 [facility] John Hoskins MD 08/18/2011 [facility] John Hoskins MD 08/18/2011 Office visit Kaylynn Mendez ONLINE MEDIA BUYER 08/02/2011 Office visit Kaylynn Mendez ONLINE MEDIA BUYER 07/08/2011 Office visit Kaylynn Mendez ONLINE MEDIA BUYER 07/05/2011 Office visit Odell Tierney MD 06/15/2011 Office visit Kaylynn Andrea ONLINE MEDIA BUYER 05/14/2011 Office visit Kaylynn Mendez ONLINE MEDIA BUYER 05/11/2011 Office visit Odell Tierney MD 04/28/2011 Office visit Kaylynn Mendez ONLINE MEDIA BUYER 03/02/2011 Office visit Chadd Norris DO 02/17/2011 [...]
--- OUTSIDE RECORDS SUMMARY | 2018-05-10 01:49 | XMS REPORT ---
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 Name Role Phone Kaylynn Mendez PCP Unavailable [...] 08/27/2014 use as directed for 99 days Capac 5-325 mg oral tablet 06/17/2014 06/27/2014 take [...] a day as needed for 30 days [id number] 3.5-10,000-1 mg/mL-unit/mL-% otic drops,suspension 201401/08/2015 instill 4 [...] Reviewed 04/28/2011 12:00 AM Decadron 1 mg ND#[id number] (Jr) Reviewed 04/28/2011 12:00 AM Depo-Medrol 80 mg ND#[id number]-Tebvoong Reviewed 05/11/2011 12:00 AM N BLOCK INJ OCCIPITAL Reviewed 05/11/2011 12:00 AM Kenalog Pb-[address]-20 ANNA Reviewed 06/15/2011 12:00 AM COMPLETE CBC W/AUTO DIFF WBC Returned 06/15/2011 12:00 AM COMPREHEN METABOLIC PANEL Returned 07/08/2011 12:00 AM THER/PROPH/DIAG INJ SC/IM Reviewed 07/08/2011 12:00 AM Toradol,15mg ND#[id number], Adilene Reviewed 07/08/2011 12:00 AM Phenergan 50 Mg Im Nd 7945-3083-17 ALLIE Hoskins Reviewed 08/02/2011 12:00 AM THER/PROPH/DIAG INJ SC/IM Reviewed 08/02/2011 12:00 AM Decadron 1 mg NDC#[id number] (Jr) Reviewed 08/02/2011 12:00 AM Depo-Medrol 80 mg NDC#[id number]-Vlfqiyhu Reviewed 09/27/2011 12:00 AM THER/PROPH/DIAG INJ SC/IM Reviewed 09/27/2011 12:00 AM Depo-Medrol 80 mg NDC#[id number]-Tuolqjeq Reviewed 10/14/2011 12:00 AM X-RAY EXAM OF ABDOMEN Returned 10/14/2011 12:00 AM URINALYSIS AUTO W/O SCOPE Reviewed 12/23/2011 12:00 AM THER/PROPH/DIAG INJ SC/IM Reviewed 12/23/2011 12:00 AM Decadron 1 mg NDC#[id number] (Jr) Reviewed 12/23/2011 12:00 AM Depo-Medrol 80 mg NDC#[id number]-Khlzcwbp Reviewed 02/09/2012 12:00 AM THER/PROPH/DIAG INJ SC/IM Reviewed 02/09/2012 12:00 AM Decadron 1 mg NDC#[id number] (Jr) Reviewed 02/09/2012 12:00 AM Depo-Medrol 80 mg NDC#[id number]-Eipspkjf Reviewed 03/15/2012 12:00 AM N BLOCK INJ OCCIPITAL Reviewed 03/15/2012 12:00 AM Kenalog Xi-[address]-20 ANNA Reviewed 04/11/2012 12:00 AM COMPLETE CBC W/AUTO DIFF WBC Returned 04/11/2012 12:00 AM COMPREHEN METABOLIC PANEL Returned 04/11/2012 12:00 AM LIPID PANEL Returned 04/11/2012 12:00 AM ASSAY THYROID STIM HORMONE Returned 06/20/2012 12:00 AM THER/PROPH/DIAG INJ SC/IM Reviewed 06/20/2012 12:00 AM Decadron, Per 1 Mg ND# [address]-31 Reviewed 06/20/2012 12:00 AM Depo-Medrol, Per 80 Mg ND#3522-0640-37 Reviewed 09/06/2012 12:00 AM N BLOCK INJ OCCIPITAL Reviewed 09/06/2012 12:00 AM Kenalog Lh-[address]-20 ANNA Reviewed 09/06/2012 12:00 AM X-RAY EXAM RIBS UNI 2 VIEWS Returned 09/26/2012 12:00 AM THER/PROPH/DIAG INJ SC/IM Reviewed 09/26/2012 12:00 AM Decadron, Per 1 Mg [facility]# [address]-05 Reviewed 09/26/2012 12:00 AM Depo-Medrol, Per 80 Mg ND#7327-4350-86 Reviewed 10/03/2012 12:00 AM URINALYSIS AUTO W/O SCOPE Reviewed 10/03/2012 12:00 AM THER/PROPH/DIAG INJ SC/IM Reviewed 10/03/2012 12:00 AM Toradol 60 Mg ND#9625-2825-16 Reviewed 10/03/2012 12:00 AM Phenergan, 25Mg ND#0015-1656-82 Reviewed 10/19/2012 12:00 AM N BLOCK INJ OCCIPITAL Reviewed 10/19/2012 12:00 AM Kenalog, Per 10 Mg ND#4238-3853-81 Reviewed 10/19/2012 12:00 AM Toradol 30 Mg ND#2237-5846-15 Reviewed 10/19/2012 12:00 AM THER/PROPH/DIAG INJ SC/IM Reviewed 10/31/2012 12:00 AM COMPLETE CBC W/AUTO DIFF WBC Returned 10/31/2012 12:00 AM COMPREHEN METABOLIC PANEL Returned 10/31/2012 12:00 AM LIPID PANEL Returned 11/03/2012 12:[address] THORAX W/O & W/DYE Returned 11/08/2012 12:00 AM N BLOCK INJ OCCIPITAL Reviewed 11/08/2012 12:00 AM Kenalog Ua-[address]-20 ANNA Reviewed 11/27/2012 12:00 AM COMPLETE CBC [...] 01/25/2013 12:00 AM Decadron, Per 1 Mg [facility]# [address]-44 Reviewed 01/25/2013 12:00 AM Depo-Medrol, Per 80 Mg [facility]#2132-5897-93 Reviewed 01/26/2013 12:00 AM IMMUNOTHERAPY INJECTIONS Returned [...] 05/16/2013 12:00 AM Decadron, Per 1 Mg [facility]# [address]-20 Reviewed 05/16/2013 12:00 AM Depo-Medrol, Per 80 Mg [facility]#9169-9284-81 Reviewed 05/31/2013 12:00 AM IMMUNOTHERAPY INJECTIONS Reviewed 06/08/2013 12:00 AM IMMUNOTHERAPY INJECTIONS Reviewed 06/14/2013 12:00 AM IMMUNOTHERAPY INJECTIONS Reviewed 06/28/2013 12:00 AM IMMUNOTHERAPY INJECTIONS Reviewed 07/12/2013 12:00 AM X-RAY EXAM RIBS UNI 2 VIEWS Returned 07/18/2013 12:00 AM Toradol 60 Mg [facility]#7145-1132-89 Reviewed 07/18/2013 12:00 AM THER/PROPH/DIAG INJ SC/IM Reviewed 08/23/2013 12:00 AM COMPLETE CBC W/AUTO DIFF WBC Reviewed 08/23/2013 12:00 AM COMPREHEN METABOLIC PANEL Reviewed 08/23/2013 12:00 AM LIPID PANEL Reviewed 08/31/2013 12:00 AM X-RAY EXAM OF LOWER LEG Returned 09/04/2013 12:00 AM IMMUNOTHERAPY INJECTIONS Reviewed 09/14/2013 12:00 AM THER/PROPH/DIAG INJ SC/IM Reviewed 09/14/2013 12:00 AM Decadron, Per 1 Mg [facility]# [address]-60 Reviewed 09/14/2013 12:00 AM Depo-Medrol, Per 80 Mg [facility]#7982-1883-35 Reviewed 09/20/2013 12:00 AM IMMUNOTHERAPY INJECTIONS Reviewed [...] INJ OCCIPITAL Reviewed 12/10/2009 12:00 AM Kenalog Uu-[address]-20 ANNA Reviewed 12/16/2009 12:00 AM HIV-1ANTIBODY Reviewed 12/16/2009 12:00 AM COMPLETE CBC W/AUTO DIFF WBC Reviewed 12/16/2009 12:00 AM METABOLIC PANEL TOTAL CA Reviewed 12/16/2009 12:00 AM Type and screen Reviewed 12/16/2009 12:00 AM PROTHROMBIN TIME Reviewed 12/16/2009 12:00 AM THROMBOPLASTIN TIME PARTIAL Reviewed 03/18/2010 12:00 AM DRAIN/INJ JOINT/BURSA W/O US Reviewed 03/18/2010 12:00 AM Kenalog Ab-[address]-20 ANNA Reviewed 11/21/2013 12:00 AM RADEX HAND MINIMUM 3 VIEWS Returned 06/03/2010 12:00 AM INJ TRIGGER POINT 1/2 MUSCL Reviewed 06/03/2010 12:00 AM Kenalog per 10Mg [facility]#[address]-13(Niall) Reviewed 12/05/2013 12:00 AM COMPLETE CBC W/AUTO [...] Reviewed 07/23/2010 12:00 AM Kenalog per 10Mg Im-Ndc#[address]-63(Niall) Reviewed 2014 12:00 AM COMPLETE CBC W/AUTO [...] INJ OCCIPITAL Reviewed 10/01/2010 12:00 AM Kenalog Iy-[address]-20 ANNA Reviewed 07/25/2014 12:00 AM THER/PROPH/DIAG INJ [...] 0.60 mg/dLCALCIUM 10.90 mg/ dLeGFR >60 mL/min/1.73 [id number] 45.0 U/L 08/31/2013 10:54 AM GLUCOSE 255.0 [...] 0.40 mg/ dLCALCIUM 10.60 mg/dLeGFR >60 mL/min/1.73 [id number] 369.0 mg/ dLCHOLESTEROL 153.0 mg/dLHDL 26.0 mg/dLLDL [...] BILI 0.30 mg/dLCALCIUM 10.0 mg/dLeGFR >60 mL/min/1.73 [id number] YELLOW APPEARANCE CLEAR SPEC GRAV 1.010 pH [...] 141 Influenza 04/24/2014 [employer] [facility] Fluzone [id number] Intramuscular Left Upper Arm 02/27/2014 01/15/2014 141 Influenza 02/13/2015 [facility] Fluzone [id number] Intramuscular Left Deltoid 02/13/2015 01/03/2015 140 History [...] Date Medicare Part A Medicare Part A [id number] N/A [facility] RHC Comm [id number] N/A [place] [employer] - [employer] [place] [employer] - RHC [id number] May [facility] Comm Plan of [id number] Wednesday, 2012 Medicare Part B Medicare Of [place] [id number] Monday, 2000 [place] [employer] [facility] [place] [employer] [id number] Tuesday, 2009 History of Encounters Visit Date Visit Type Provider 05/26/2015 Office visit Kaylynn Mendez CLINICAL REHABILITATION LIAISON 05/20/2015 Office visit Kaylynn Mendez CLINICAL REHABILITATION LIAISON 05/08/2015 Office visit Heena Dumont MD 05/06/2015 Office visit Kaylnyn Mendez CLINICAL REHABILITATION LIAISON 04/29/2015 Office visit Kaylynn Mendez CLINICAL REHABILITATION LIAISON 03/27/2015 Voided Brittni Yanez CLINICAL REHABILITATION LIAISON 03/21/2015 Office visit Heena Dumont MD 03/12/2015 Office visit Kaylynn Mendez CLINICAL REHABILITATION LIAISON 02/26/2015 Office visit Brittni Yanez CLINICAL REHABILITATION LIAISON 02/13/2015 Office visit Heena Dumont MD 01/15/2015 Office visit Brittni Yanez CLINICAL REHABILITATION LIAISON 01/13/2015 Office visit Heena Dumont MD 01/08/[address] Carol Fowler MD 01/01/2015 Office visit Brittni Yanez CLINICAL REHABILITATION LIAISON 12/13/2014 Office visit Heena Dumont MD 11/27/2014 Office visit Kaylynn Mendez CLINICAL REHABILITATION LIAISON 11/14/2014 Office visit Heena Dumont MD 10/18/2014 Office visit Heena Dumont MD 10/17/2014 [facility] John Hoskins MD 10/09/2014 Office visit Heena Dumont MD 09/25/2014 Office visit Heena Dumont MD 09/17/2014 Office visit Kaylynn Mendez CLINICAL REHABILITATION LIAISON 09/04/2014 Office visit Heena Dumont MD 08/28/2014 Office visit Kaylynn Mendez CLINICAL REHABILITATION LIAISON 08/23/2014 [facility] Eliseo Hoskins MD 08/01/2014 Office visit Kaylynn Mendez CLINICAL REHABILITATION LIAISON 07/29/2014 Office visit Heena Dumont MD 07/25/2014 Nurse visit Heena Dumont MD 07/17/2014 Office visit Kaylynn Mendez CLINICAL REHABILITATION LIAISON 07/11/2014 Office visit Heena Dumont MD 07/01/2014 Office visit Heena Dumont MD 06/25/2014 Office visit Kaylynn Mendez CLINICAL REHABILITATION LIAISON 06/12/2014 Office visit Kaylynn Mendez CLINICAL REHABILITATION LIAISON 06/06/2014 Office visit Kaylynn Mendez CLINICAL REHABILITATION LIAISON 05/27/2014 Office visit Heena Dumont MD 04/20/2014 Office visit Yesica Falcon CLINICAL REHABILITATION LIAISON 03/29/2014 Office visit Na Jones CLINICAL REHABILITATION LIAISON 03/15/2014 Office visit Heena Dumont MD 2014 Office visit Heena Dumont MD 2014 [facility] John Hoskins MD 02/27/2014 Nurse visit Heena Dumont MD 02/13/2014 Office visit Lena El CLINICAL REHABILITATION LIAISON 02/07/2014 Office visit Heena Dumont MD 02/03/2014 Office visit Na Jones CLINICAL REHABILITATION LIAISON 01/30/2014 Office visit Kaylynn Mendez CLINICAL REHABILITATION LIAISON 01/24/2014 Office visit Sundeep Russell CLINICAL REHABILITATION LIAISON 01/16/2014 Office visit Kaylynn Mendez CLINICAL REHABILITATION LIAISON 01/10/2014 Nurse visit Kaylynn Mendez CLINICAL REHABILITATION LIAISON 01/08/2014 Office visit Kaylynn Mendez CLINICAL REHABILITATION LIAISON 12/05/2013 Office visit Kaylynn Mendez CLINICAL REHABILITATION LIAISON 11/21/2013 Office visit Kaylynn Mendez CLINICAL REHABILITATION LIAISON 10/23/2013 Office visit Brittni Yanez CLINICAL REHABILITATION LIAISON 10/17/2013 Nurse visit Heena Dumont MD 10/12/2013 Office visit Kaylynn Mendez CLINICAL REHABILITATION LIAISON 10/02/2013 Office visit Heena Dumont MD 09/20/2013 Nurse visit Kaylynn Mendez CLINICAL REHABILITATION LIAISON 09/20/2013 Voided Heena Dumont MD 09/14/2013 Office visit Kaylynn Walker CLINICAL REHABILITATION LIAISON 09/05/2013 Office visit Sundeep Russell CLINICAL REHABILITATION LIAISON 09/04/2013 Nurse visit Kaylynn Walker CLINICAL REHABILITATION LIAISON 08/31/2013 Office visit Kaylynn Walker CLINICAL REHABILITATION LIAISON 08/23/2013 Office visit Heena Dumont MD 08/10/2013 Office visit Kaylynn Walker CLINICAL REHABILITATION LIAISON 07/25/2013 Office visit Kaylynn Walker CLINICAL REHABILITATION LIAISON 07/18/2013 Office visit Kaylynn Walker CLINICAL REHABILITATION LIAISON 07/12/2013 Office visit Kaylynn Walker CLINICAL REHABILITATION LIAISON 06/28/2013 Nurse visit Kaylynn Mendez CLINICAL REHABILITATION LIAISON 06/14/2013 Nurse visit Kaylynn Mendez CLINICAL REHABILITATION LIAISON 06/08/2013 Nurse visit Kaylynn Mendez CLINICAL REHABILITATION LIAISON 05/31/2013 Nurse visit Chadd Norris DO 05/18/2013 Office visit Terese Davidson MD 05/16/2013 Office visit Kaylynn Mendez CLINICAL REHABILITATION LIAISON 05/09/2013 Office visit Kaylynn Mendez CLINICAL REHABILITATION LIAISON 04/29/2013 [facility] Eliseo Hoskins MD 04/25/2013 Nurse visit Kaylynn Mendez CLINICAL REHABILITATION LIAISON 04/17/2013 Office visit Kaylynn Mendez CLINICAL REHABILITATION LIAISON 04/03/2013 Nurse visit Kaylynn Mendez CLINICAL REHABILITATION LIAISON 04/03/2013 Office visit Terese Davidson MD 03/28/2013 Office visit Sundeep Russell CLINICAL REHABILITATION LIAISON 03/21/2013 Office visit Kaylynn Mendez CLINICAL REHABILITATION LIAISON 03/20/2013 Office visit Terese Davidson MD 03/14/2013 Nurse visit Kaylynn Mendez CLINICAL REHABILITATION LIAISON 03/05/2013 Nurse visit Kaylynn Mendez CLINICAL REHABILITATION LIAISON 02/19/2013 Office visit Terese Davidson MD 02/16/2013 Nurse visit Kaylynn Mendez CLINICAL REHABILITATION LIAISON 02/09/2013 Office visit Sundeep Russell CLINICAL REHABILITATION LIAISON 02/08/2013 Nurse visit Kaylynn Mendez CLINICAL REHABILITATION LIAISON 02/01/2013 Nurse visit Kaylynn Walker CLINICAL REHABILITATION LIAISON 01/26/2013 Nurse visit Sabrina Mendez DISINTEGRATOR OPERATOR 01/25/2013 Office visit Kaylynn Mendez CLINICAL REHABILITATION LIAISON 01/22/2013 Office visit Yoan Castaneda MD 01/18/2013 Nurse visit Kaylynn Mendez CLINICAL REHABILITATION LIAISON 01/11/2013 Nurse visit Kaylynn Mendez CLINICAL REHABILITATION LIAISON 01/05/2013 Nurse visit Kaylynn Mendez CLINICAL REHABILITATION LIAISON 12/29/2012 Office visit Kaylynn Walker CLINICAL REHABILITATION LIAISON 11/27/2012 Office visit Kaylynn Andrea CLINICAL REHABILITATION LIAISON 11/08/2012 Office visit Odell Tierney MD 11/08/2012 Voided Odell Tierney MD 11/07/2012 Office visit Kaylynn Andrea CLINICAL REHABILITATION LIAISON 10/31/2012 [facility] John Hoskins MD 10/31/2012 Office visit Kaylynn Walker CLINICAL REHABILITATION LIAISON 10/19/2012 Office visit Genoveva Ayala CLINICAL REHABILITATION LIAISON 10/10/2012 Office visit Kaylynn Walker CLINICAL REHABILITATION LIAISON 10/03/2012 Office visit Kaylynn Walker CLINICAL REHABILITATION LIAISON 09/26/2012 Office visit Kaylynn Walker CLINICAL REHABILITATION LIAISON 09/06/2012 Office visit Kaylynn Walker CLINICAL REHABILITATION LIAISON 09/06/2012 Office visit Odell Tierney MD 08/31/2012 Voided Kaylynn Mendez CLINICAL REHABILITATION LIAISON 07/28/2012 Office visit Kaylynn Walker CLINICAL REHABILITATION LIAISON 07/27/2012 Office visit David Joyner DO 07/20/2012 [facility]2012 [facility] DO 07/11/2012 Office visit Kaylynn Mendez CLINICAL REHABILITATION LIAISON 06/27/2012 [facility] Odell Tierney MD 06/21/2012 Office visit David Joyner DO 06/21/2012 Office visit Odell Tierney MD 06/20/2012 Office visit Brittni Yanez CLINICAL REHABILITATION LIAISON 06/06/2012 Office visit Odell Tierney MD 05/03/2012 Office visit Kaylynn Mendez CLINICAL REHABILITATION LIAISON 04/28/2012 Office visit Brittni Yanez CLINICAL REHABILITATION LIAISON 04/11/2012 Office visit Kaylynn Mendez CLINICAL REHABILITATION LIAISON 04/06/2012 [facility] John Hoskins MD 03/30/2012 Office visit Kaylynn Mendez CLINICAL REHABILITATION LIAISON 03/15/2012 Office visit Kaylynn Mendez CLINICAL REHABILITATION LIAISON 03/15/2012 Office visit Odell Tierney MD 02/09/2012 Office visit Kaylynn Mendez CLINICAL REHABILITATION LIAISON 12/23/2011 Office visit Kaylynn Walker CLINICAL REHABILITATION LIAISON 11/02/2011 Office visit Kaylynn Walker CLINICAL REHABILITATION LIAISON 10/14/2011 Office visit Kaylynn Mendez CLINICAL REHABILITATION LIAISON 09/27/2011 Office visit Kaylynn Mendez CLINICAL REHABILITATION LIAISON 08/19/2011 [facility] John Hoskins MD 08/18/2011 [facility] John Hoskins MD 08/18/2011 Office visit Kaylynn Walker CLINICAL REHABILITATION LIAISON 08/02/2011 Office visit Kaylynn Walker CLINICAL REHABILITATION LIAISON 07/08/2011 Office visit Kaylynn Mendez CLINICAL REHABILITATION LIAISON 07/05/2011 Office visit Odell Tierney MD 06/15/2011 Office visit Kaylynn Mendez CLINICAL REHABILITATION LIAISON 05/14/2011 Office visit Kaylynn Mendez CLINICAL REHABILITATION LIAISON 05/11/2011 Office visit Odell Tierney MD 04/28/2011 Office visit Kaylynn Andrea CLINICAL REHABILITATION LIAISON 03/02/2011 Office visit Chadd Norris DO 02/17/2011 [...]
--- OUTSIDE RECORDS SUMMARY | 2018-05-10 01:53 | XMS REPORT ---
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 Name Role Phone Kaylynn Mendez PCP [...] 08/27/2014 use as directed for 99 days [place] 5-325 mg oral tablet 06/17/2014 06/27/2014 [...] a day as needed for 30 days evgrbrbj-ajxatwqqu-FA 3.5-10,000-1 mg/mL-unit/mL-% otic drops,suspension 201401/08/2015 instill 4 [...] HC BMI BSA BMI Percentile O2 Sat(%) 04/29/2015 3:07:00 PM 126 mmHg 72 mmHg [...] Reviewed 04/28/2011 12:00 AM Decadron 1 mg ND#[id number] (Jr) Reviewed 04/28/2011 12:00 AM Depo-Medrol 80 mg NDC#[id number]-Glyofknx Reviewed 05/11/2011 12:00 AM N BLOCK INJ OCCIPITAL Reviewed 05/11/2011 12:00 AM Kenalog Hd-[address]-20 ANNA Reviewed 06/15/2011 12:00 AM COMPLETE CBC W/AUTO DIFF WBC Returned 06/15/2011 12:00 AM COMPREHEN METABOLIC PANEL Returned 07/08/2011 12:00 AM THER/PROPH/DIAG INJ SC/IM Reviewed 07/08/2011 12:00 AM Toradol,15mg ND#[id number], [place] Reviewed 07/08/2011 12:00 AM Phenergan 50 Mg Im Nd 2097-4979-05 ALLIE Hoskins Reviewed 08/02/2011 12:00 AM THER/PROPH/DIAG INJ SC/IM Reviewed 08/02/2011 12:00 AM Decadron 1 mg NDC#[id number] (Jr) Reviewed 08/02/2011 12:00 AM Depo-Medrol 80 mg NDC#[id number]-Aqvvrqpv Reviewed 09/27/2011 12:00 AM THER/PROPH/DIAG INJ SC/IM Reviewed 09/27/2011 12:00 AM Depo-Medrol 80 mg NDC#[id number]-Pbatohpu Reviewed 10/14/2011 12:00 AM X-RAY EXAM OF ABDOMEN Returned 10/14/2011 12:00 AM URINALYSIS AUTO W/O SCOPE Reviewed 12/23/2011 12:00 AM THER/PROPH/DIAG INJ SC/IM Reviewed 12/23/2011 12:00 AM Decadron 1 mg NDC#[id number] (Jr) Reviewed 12/23/2011 12:00 AM Depo-Medrol 80 mg NDC#[id number]-Edosnxwm Reviewed 02/09/2012 12:00 AM THER/PROPH/DIAG INJ SC/IM Reviewed 02/09/2012 12:00 AM Decadron 1 mg NDC#[id number] (Jr) Reviewed 02/09/2012 12:00 AM Depo-Medrol 80 mg NDC#[id number]-Kvutdmgv Reviewed 03/15/2012 12:00 AM N BLOCK INJ OCCIPITAL Reviewed 03/15/2012 12:00 AM Kenalog Yb-[address]-20 ANNA Reviewed 04/11/2012 12:00 AM COMPLETE CBC W/AUTO DIFF WBC Returned 04/11/2012 12:00 AM COMPREHEN METABOLIC PANEL Returned 04/11/2012 12:00 AM LIPID PANEL Returned 04/11/2012 12:00 AM ASSAY THYROID STIM HORMONE Returned 06/20/2012 12:00 AM THER/PROPH/DIAG INJ SC/IM Reviewed 06/20/2012 12:00 AM Decadron, Per 1 Mg ND# [address]-01 Reviewed 06/20/2012 12:00 AM Depo-Medrol, Per 80 Mg NDC#4684-2811-49 Reviewed 09/06/2012 12:00 AM N BLOCK INJ OCCIPITAL Reviewed 09/06/2012 12:00 AM Kenalog Qm-[address]-20 ANNA Reviewed 09/06/2012 12:00 AM X-RAY EXAM RIBS UNI 2 VIEWS Returned 09/26/2012 12:00 AM THER/PROPH/DIAG INJ SC/IM Reviewed 09/26/2012 12:00 AM Decadron, Per 1 Mg ND# [address]-63 Reviewed 09/26/2012 12:00 AM Depo-Medrol, Per 80 Mg [facility]#2321-4985-74 Reviewed 10/03/2012 12:00 AM URINALYSIS AUTO W/O SCOPE Reviewed 10/03/2012 12:00 AM THER/PROPH/DIAG INJ SC/IM Reviewed 10/03/2012 12:00 AM Toradol 60 Mg [facility]#9243-9299-97 Reviewed 10/03/2012 12:00 AM Phenergan, 25Mg [facility]#6353-0224-39 Reviewed 10/19/2012 12:00 AM N BLOCK INJ OCCIPITAL Reviewed 10/19/2012 12:00 AM Kenalog, Per 10 Mg [facility]#3866-5946-93 Reviewed 10/19/2012 12:00 AM Toradol 30 Mg [facility]#6524-9345-30 Reviewed 10/19/2012 12:00 AM THER/PROPH/DIAG INJ SC/IM Reviewed 10/31/2012 12:00 AM COMPLETE CBC W/AUTO DIFF WBC Returned 10/31/2012 12:00 AM COMPREHEN METABOLIC PANEL Returned 10/31/2012 12:00 AM LIPID PANEL Returned 11/03/2012 12:[address] THORAX W/O & W/DYE Returned 11/08/2012 12:00 AM N BLOCK INJ OCCIPITAL Reviewed 11/08/2012 12:00 AM Kenalog Tw-[address]-20 ANNA Reviewed 11/27/2012 12:00 AM COMPLETE CBC [...] Per 1 Mg [facility]# [address]-94 Reviewed 01/25/2013 12:00 AM Depo-Medrol, Per 80 Mg [facility]#2527-1310-38 Reviewed 01/26/2013 12:00 AM IMMUNOTHERAPY INJECTIONS Returned [...] Per 1 Mg [facility]# [address]-94 Reviewed 05/16/2013 12:00 AM Depo-Medrol, Per 80 Mg [facility]#5727-3714-40 Reviewed 05/31/2013 12:00 AM IMMUNOTHERAPY INJECTIONS Reviewed 06/08/2013 12:00 AM IMMUNOTHERAPY INJECTIONS Reviewed 06/14/2013 12:00 AM IMMUNOTHERAPY INJECTIONS Reviewed 06/28/2013 12:00 AM IMMUNOTHERAPY INJECTIONS Reviewed 07/12/2013 12:00 AM X-RAY EXAM RIBS UNI 2 VIEWS Returned 07/18/2013 12:00 AM Toradol 60 Mg [facility]#4372-9612-94 Reviewed 07/18/2013 12:00 AM THER/PROPH/DIAG INJ SC/IM Reviewed 08/23/2013 12:00 AM COMPLETE CBC W/AUTO DIFF WBC Reviewed 08/23/2013 12:00 AM COMPREHEN METABOLIC PANEL Reviewed 08/23/2013 12:00 AM LIPID PANEL Reviewed 08/31/2013 12:00 AM X-RAY EXAM OF LOWER LEG Returned 09/04/2013 12:00 AM IMMUNOTHERAPY INJECTIONS Reviewed 09/14/2013 12:00 AM THER/PROPH/DIAG INJ SC/IM Reviewed 09/14/2013 12:00 AM Decadron, Per 1 Mg [facility]# [address]-10 Reviewed 09/14/2013 12:00 AM Depo-Medrol, Per 80 Mg [facility]#3608-6537-09 Reviewed 09/20/2013 12:00 AM IMMUNOTHERAPY INJECTIONS Reviewed [...] INJ OCCIPITAL Reviewed 12/10/2009 12:00 AM Kenalog Av-[address]-20 ANNA Reviewed 12/16/2009 12:00 AM HIV-1ANTIBODY Reviewed 12/16/2009 12:00 AM COMPLETE CBC W/AUTO DIFF WBC Reviewed 12/16/2009 12:00 AM METABOLIC PANEL TOTAL CA Reviewed 12/16/2009 12:00 AM Type and screen Reviewed 12/16/2009 12:00 AM PROTHROMBIN TIME Reviewed 12/16/2009 12:00 AM THROMBOPLASTIN TIME PARTIAL Reviewed 03/18/2010 12:00 AM DRAIN/INJ JOINT/BURSA W/O US Reviewed 03/18/2010 12:00 AM Kenalog Tc-[address]-20 ANNA Reviewed 11/21/2013 12:00 AM RADEX HAND MINIMUM 3 VIEWS Returned 06/03/2010 12:00 AM INJ TRIGGER POINT 1/2 MUSCL Reviewed 06/03/2010 12:00 AM Kenalog per 10Mg [facility]#[address]-33(Niall) Reviewed 12/05/2013 12:00 AM COMPLETE CBC W/AUTO [...] AM Kenalog per 10Mg Im-[facility]#[address]-06(Niall) Reviewed 2014 12:00 AM COMPLETE CBC W/AUTO [...] INJ OCCIPITAL Reviewed 10/01/2010 12:00 AM Kenalog Zs-[address]-20 ANNA Reviewed 07/25/2014 12:00 AM THER/PROPH/DIAG INJ [...] 0.60 mg/dLCALCIUM 10.90 mg/ dLeGFR >60 mL/min/1.73 [id number] 45.0 U/L 08/31/2013 10:54 AM GLUCOSE 255.0 [...] 0.40 mg/ dLCALCIUM 10.60 mg/dLeGFR >60 mL/min/1.73 [id number] 369.0 mg/ dLCHOLESTEROL 153.0 mg/dLHDL 26.0 mg/dLLDL [...] BILI 0.30 mg/dLCALCIUM 10.0 mg/dLeGFR >60 mL/min/1.73 [id number] YELLOW APPEARANCE CLEAR SPEC GRAV 1.010 pH 5.5 PROTEIN NEGATIVE GLUCOSE NEGATIVE KETONE NEGATIVE BILIRUBIN NEGATIVE BLOOD NEGATIVE NITRITE NEGATIVE [place]UK SCREEN NEGATIVE Est Avg Glucose 134.1 mg/dLMICROALBUMIN UR <0.5 MG/DL 02/13/2015 4:38 PM RMSF, IgG, EIA Negative Dejuan [facility] Spotted Fever,IgM 0.51 E. chaffeensis [...] 141 Influenza 04/24/2014 sanofi pasteur [facility] Fluzone [id number] Intramuscular Left Upper Arm 02/27/2014 01/15/2014 141 Influenza 02/13/2015 sanofi pasteur [facility]C Fluzone [id number] Intramuscular Left Deltoid 02/13/2015 01/03/2015 140 History [...] Lumbago Jul 05 2011 1:58PM Muscle Spasm Jun 6 2011 [...] of unspecified type Apr 29 2015 3:09PM Payers Insurance Name Company Name Plan Name Plan Number Policy Number Policy Group Number Start Date Medicare Part A Medicare Part A [id number] N/A [facility] Comm [id number] N/A [place] Patient Appointment Coordinator Prog - [facility] Patient Appointment Coordinator Prog - [facility] [id number] [facility] Comm Plan of [id number] Wednesday, 2012 Medicare Part B Medicare Of [place] [id number] Monday, 2000 [place] [employer] [place] [employer] [place]g [id number] Tuesday, 2009 History of Encounters Visit Date Visit Type Provider 04/29/2015 Office visit Kaylynn Mendez MEDICAL PARASITOLOGIST 03/27/2015 Voided Brittni Yanez MEDICAL PARASITOLOGIST 03/21/2015 Office visit Heena Dumont MD 03/12/2015 Office visit Kaylynn Mendez MEDICAL PARASITOLOGIST 02/26/2015 Office visit Brittni Yanez MEDICAL PARASITOLOGIST 02/13/2015 Office visit Heena Dumont MD 01/15/2015 Office visit Brittni Yanez MEDICAL PARASITOLOGIST 01/13/2015 Office visit Heena Dumont MD 01/08/[address] Carol Fowler MD 01/01/2015 Office visit Brittni Yanez MEDICAL PARASITOLOGIST 12/13/2014 Office visit Heena Dumont MD 11/27/2014 Office visit Kaylynn Mendez MEDICAL PARASITOLOGIST 11/14/2014 Office visit Heena Dumont MD 10/18/2014 Office visit Heena Dumont MD 10/17/2014 [facility] John Hoskins MD 10/09/2014 Office visit Heena Dumont MD 09/25/2014 Office visit Heena Dumont MD 09/17/2014 Office visit Kaylynn Mendez MEDICAL PARASITOLOGIST 09/04/2014 Office visit Heena Dumont MD 08/28/2014 Office visit Kaylynn Mendez MEDICAL PARASITOLOGIST 08/23/2014 [facility] John Hoskins MD 08/01/2014 Office visit Kaylynn Mendez MEDICAL PARASITOLOGIST 07/29/2014 Office visit Heena Dumont MD 07/25/2014 Nurse visit Heena Dumont MD 07/17/2014 Office visit Kaylynn Mendez MEDICAL PARASITOLOGIST 07/11/2014 Office visit Heena Dumont MD 07/01/2014 Office visit Heena Dumont MD 06/25/2014 Office visit Kaylynn Mendez MEDICAL PARASITOLOGIST 06/12/2014 Office visit Kaylynn Mendez MEDICAL PARASITOLOGIST 06/06/2014 Office visit Kaylynn Mendez MEDICAL PARASITOLOGIST 05/27/2014 Office visit Heena Dumont MD 04/20/2014 Office visit Yesica Falcon MEDICAL PARASITOLOGIST 03/29/2014 Office visit Na Jones MEDICAL PARASITOLOGIST 03/15/2014 Office visit Heena Dumont MD 2014 Office visit Heena Dumont MD 2014 Hospital John Hoskins MD 02/27/2014 Nurse visit Heena Dumont MD 02/13/2014 Office visit Lena El MEDICAL PARASITOLOGIST 02/07/2014 Office visit Heena Dumont MD 02/03/2014 Office visit Na Jones MEDICAL PARASITOLOGIST 01/30/2014 Office visit Kaylynn Mendez MEDICAL PARASITOLOGIST 01/24/2014 Office visit Sundeep Russell MEDICAL PARASITOLOGIST 01/16/2014 Office visit Kaylynn Walker MEDICAL PARASITOLOGIST 01/10/2014 Nurse visit Kaylynn Walker MEDICAL PARASITOLOGIST 01/08/2014 Office visit Kaylynn Walker MEDICAL PARASITOLOGIST 12/05/2013 Office visit Kaylynn Walker MEDICAL PARASITOLOGIST 11/21/2013 Office visit Kaylynn Walker MEDICAL PARASITOLOGIST 10/23/2013 Office visit Brittni Yanez MEDICAL PARASITOLOGIST 10/17/2013 Nurse visit Heena Dumont MD 10/12/2013 Office visit Kaylynn Walker MEDICAL PARASITOLOGIST 10/02/2013 Office visit Heena Dumont MD 09/20/2013 Nurse visit Kaylynn Walker MEDICAL PARASITOLOGIST 09/20/2013 Voided Heena Dumont MD 09/14/2013 Office visit Kaylynn Walker MEDICAL PARASITOLOGIST 09/05/2013 Office visit Sundeep Russell MEDICAL PARASITOLOGIST 09/04/2013 Nurse visit Kaylynn Walker MEDICAL PARASITOLOGIST 08/31/2013 Office visit Kaylynn Walker MEDICAL PARASITOLOGIST 08/23/2013 Office visit Heena Dumont MD 08/10/2013 Office visit Kaylynn Walker MEDICAL PARASITOLOGIST 07/25/2013 Office visit Kaylynn Walker MEDICAL PARASITOLOGIST 07/18/2013 Office visit Kaylynn Walker MEDICAL PARASITOLOGIST 07/12/2013 Office visit Kaylynn Walker MEDICAL PARASITOLOGIST 06/28/2013 Nurse visit Kaylynn Walker MEDICAL PARASITOLOGIST 06/14/2013 Nurse visit Kaylynn Walker MEDICAL PARASITOLOGIST 06/08/2013 Nurse visit Kaylynn Walker MEDICAL PARASITOLOGIST 05/31/2013 Nurse visit Chadd Norris DO 05/18/2013 Office visit Terese Davidson MD 05/16/2013 Office visit Kaylynn Walker MEDICAL PARASITOLOGIST 05/09/2013 Office visit Kaylynn Walker MEDICAL PARASITOLOGIST 04/29/2013 [facility] Eliseo Hoskins MD 04/25/2013 Nurse visit Kaylynn Walker MEDICAL PARASITOLOGIST 04/17/2013 Office visit Kaylynn Walker MEDICAL PARASITOLOGIST 04/03/2013 Nurse visit Kaylynn Walker MEDICAL PARASITOLOGIST 04/03/2013 Office visit Terese Davidson MD 03/28/2013 Office visit Sundeep Russell MEDICAL PARASITOLOGIST 03/21/2013 Office visit Kaylynn Mendez MEDICAL PARASITOLOGIST 03/20/2013 Office visit Terese Davidson MD 03/14/2013 Nurse visit Kaylynn Walker MEDICAL PARASITOLOGIST 03/05/2013 Nurse visit Kaylynn Walker MEDICAL PARASITOLOGIST 02/19/2013 Office visit Terese Davidson MD 02/16/2013 Nurse visit Kaylynn Mendez MEDICAL PARASITOLOGIST 02/09/2013 Office visit Sundeep Russell MEDICAL PARASITOLOGIST 02/08/2013 Nurse visit Kaylynn Walker MEDICAL PARASITOLOGIST 02/01/2013 Nurse visit Kaylynn Walker MEDICAL PARASITOLOGIST 01/26/2013 Nurse visit Sabrina Mendez LEVEL VIAL MARKER 01/25/2013 Office visit Kaylynn Walker MEDICAL PARASITOLOGIST 01/22/2013 Office visit Yoan Castaneda MD 01/18/2013 Nurse visit Kaylynn Walker MEDICAL PARASITOLOGIST 01/11/2013 Nurse visit Kaylynn Walker MEDICAL PARASITOLOGIST 01/05/2013 Nurse visit Kaylynn Walker MEDICAL PARASITOLOGIST 12/29/2012 Office visit Kaylynn Walker MEDICAL PARASITOLOGIST 11/27/2012 Office visit Kaylynn Walker MEDICAL PARASITOLOGIST 11/08/2012 Office visit Odell Tierney MD 11/08/2012 Voided Odell Tierney MD 11/07/2012 Office visit Kaylynn Walker MEDICAL PARASITOLOGIST 10/31/2012 [facility] John Hoskins MD 10/31/2012 Office visit Kaylynn Walker MEDICAL PARASITOLOGIST 10/19/2012 Office visit Genoveva Ayala MEDICAL PARASITOLOGIST 10/10/2012 Office visit Kaylynn Walker MEDICAL PARASITOLOGIST 10/03/2012 Office visit Kaylynn Walker MEDICAL PARASITOLOGIST 09/26/2012 Office visit Kayylnn Walker MEDICAL PARASITOLOGIST 09/06/2012 Office visit Kaylynn Walker MEDICAL PARASITOLOGIST 09/06/2012 Office visit Odell Tierney MD 08/31/2012 Voided Kaylynn Mendez MEDICAL PARASITOLOGIST 07/28/2012 Office visit Kaylynn Walker MEDICAL PARASITOLOGIST 07/27/2012 Office visit David Joyner DO 07/20/2012 [facility] DO 07/13/2012 [facility] DO 07/11/2012 Office visit Kaylynn Mendez MEDICAL PARASITOLOGIST 06/27/2012 [facility] Odell Tierney MD 06/21/2012 Office visit David Joyner DO 06/21/2012 Office visit Odell Tierney MD 06/20/2012 Office visit Brittni Yanez MEDICAL PARASITOLOGIST 06/06/2012 Office visit Odell Tierney MD 05/03/2012 Office visit Kaylynn Mendez MEDICAL PARASITOLOGIST 04/28/2012 Office visit Brittni Yanez MEDICAL PARASITOLOGIST 04/11/2012 Office visit Kaylynn Mendez MEDICAL PARASITOLOGIST 04/06/2012 [facility] John Hoskins MD 03/30/2012 Office visit Kaylynn Mendez MEDICAL PARASITOLOGIST 03/15/2012 Office visit Kaylynn Mendez MEDICAL PARASITOLOGIST 03/15/2012 Office visit Odell Tierney MD 02/09/2012 Office visit Kaylynn Walker MEDICAL PARASITOLOGIST 12/23/2011 Office visit Kaylynn Walker MEDICAL PARASITOLOGIST 11/02/2011 Office visit Kaylynn Walker MEDICAL PARASITOLOGIST 10/14/2011 Office visit Kaylynn Walker MEDICAL PARASITOLOGIST 09/27/2011 Office visit Kaylynn Mendez MEDICAL PARASITOLOGIST 08/19/2011 [facility] John Hoskins MD 08/18/2011 [facility] John Hoskins MD 08/18/2011 Office visit Kaylynn Mendez MEDICAL PARASITOLOGIST 08/02/2011 Office visit Kaylynn Mendez MEDICAL PARASITOLOGIST 07/08/2011 Office visit Kaylynn Andrea MEDICAL PARASITOLOGIST 07/05/2011 Office visit Odell Tierney MD 06/15/2011 Office visit Kaylynn Mendez MEDICAL PARASITOLOGIST 05/14/2011 Office visit Kaylynn Mendez MEDICAL PARASITOLOGIST 05/11/2011 Office visit Odell Tierney MD 04/28/2011 Office visit Kaylynn Andrea MEDICAL PARASITOLOGIST 03/02/2011 Office visit Chadd Norris DO 02/17/2011 [...] visit Odell Tierney MD 02/06/2010 Office visit Vicike STEIN 02/04/2010 Surgery Yoan Castaneda MD 01/29/2010 Office visit Hillary RITCHIE 12/23/2009 Surgery Yoan Castaneda MD 12/16/2009 Surgery Yoan Castaneda MD 12/10/2009 Office visit Odell Tierney MD 11/26/2009 Office visit Yoan Castaneda MD 11/17/2009 Office visit Odell Tierney MD 11/10/2009 Office visit Chadd Norris DO
--- OUTSIDE RECORDS SUMMARY | 2018-05-10 02:03 | XMS REPORT ---
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9 RBC 4.22 HGB 12.80 g/dLHCT 37.40 %MCV 89.0 fLH 30.30 pgHC 34.20 g/dLRDW CV 13.40 %MPV 11.30 fLPLT [...] 0.40 mg/ dLCALCIUM 10.60 mg/dLeGFR >60 mL/min/1.73 [id number] 369.0 mg/ dLCHOLESTEROL 153.0 mg/dLHDL 26.0 mg/dLLDL [...] BILI 0.30 mg/dLCALCIUM 10.0 mg/dLeGFR >60 mL/min/1.73 [id number] YELLOW APPEARANCE CLEAR SPEC GRAV 1.010 pH [...] Not Entered 03/31/2011 05/30/2015 141 Influenza 04/24/2014 [facility] PMC Fluzone [id number] Intramuscular Left Upper Arm 02/27/2014 01/15/2014 141 [...] Date Medicare Part A Medicare Part A [id number] N/A [facility] [id number] N/A [place] Conditioning [facility] - C [id number] May [facility] Comm Plan of [id number] Wednesday, 2012 Medicare Part B Medicare Of [place] [id number] Monday, 2000 [place] Medical [place] Program [place] Medical [place] Prog [id number] Tuesday, 2009 History of Encounters Visit Date [...] Dumont MD 06/25/2014 Office visit Kaylynn Mendez APRN 06/12/2014 Office visit Kaylynn Mendez APRN 06/06/2014 Office visit Kaylynn Mendez APRN 05/27/2014 Office visit Heena Dumont MD 04/20/2014 Office visit Markuskristen Avery Falcon WASH OIL PUMP OPERATOR HELPER 03/29/2014 Office visit Na Jones WASH OIL PUMP OPERATOR HELPER 03/15/2014 Office visit Heena Dumont MD 2014 Office visit Heena Dumont MD 2014 [facility] John Hoskins MD 02/27/2014 Nurse visit Heena Dumont MD 02/13/2014 Office visit Lena El WASH OIL PUMP OPERATOR HELPER 02/07/2014 Office visit Heena Dumont MD 02/03/2014 Office visit Na Jones WASH OIL PUMP OPERATOR HELPER 01/30/2014 Office visit Kaylynn Mendez WASH OIL PUMP OPERATOR HELPER 01/24/2014 Office visit Sundeep Russell WASH OIL PUMP OPERATOR HELPER 01/16/2014 Office visit Kaylynn Walker WASH OIL PUMP OPERATOR HELPER 01/10/2014 Nurse visit Kaylynn Mendez WASH OIL PUMP OPERATOR HELPER 01/08/2014 Office visit Kaylynn Mendez WASH OIL PUMP OPERATOR HELPER 12/05/2013 Office visit Kaylynn Walker WASH OIL PUMP OPERATOR HELPER 11/21/2013 Office visit Kaylynn Mendez WASH OIL PUMP OPERATOR HELPER 10/23/2013 Office visit Brittni Yanez WASH OIL PUMP OPERATOR HELPER 10/17/2013 Nurse visit Heena Dumont MD 10/12/2013 Office visit Kaylynn Mendez WASH OIL PUMP OPERATOR HELPER 10/02/2013 Office visit Heena Dumont MD 09/20/2013 Voided Heena Dumont MD 09/20/2013 Nurse visit Kaylynn Walker WASH OIL PUMP OPERATOR HELPER 09/14/2013 Office visit Kaylynn Walker WASH OIL PUMP OPERATOR HELPER 09/05/2013 Office visit Sundeep Russell WASH OIL PUMP OPERATOR HELPER 09/04/2013 Nurse visit Kaylynn Walker WASH OIL PUMP OPERATOR HELPER 08/31/2013 Office visit Kaylynn Walker WASH OIL PUMP OPERATOR HELPER 08/23/2013 Office visit Heena Dumont MD 08/10/2013 Office visit Kaylynn Walker WASH OIL PUMP OPERATOR HELPER 07/25/2013 Office visit Kaylynn Walker WASH OIL PUMP OPERATOR HELPER 07/18/2013 Office visit Kaylynn Walker WASH OIL PUMP OPERATOR HELPER 07/12/2013 Office visit Kaylynn Walker WASH OIL PUMP OPERATOR HELPER 06/28/2013 Nurse visit Kaylynn Walker WASH OIL PUMP OPERATOR HELPER 06/14/2013 Nurse visit Kaylynn Walker WASH OIL PUMP OPERATOR HELPER 06/08/2013 Nurse visit Kaylynn Walker WASH OIL PUMP OPERATOR HELPER 05/31/2013 Nurse visit Chadd Norris DO 05/18/2013 Office visit Terese Davidson MD 05/16/2013 Office visit Kaylynn Mendez WASH OIL PUMP OPERATOR HELPER 05/09/2013 Office visit Kaylynn Mendez WASH OIL PUMP OPERATOR HELPER 04/29/2013 [facility] John Hoskins MD 04/25/2013 Nurse visit Kaylynn Walker WASH OIL PUMP OPERATOR HELPER 04/17/2013 Office visit Kaylynn Mendez WASH OIL PUMP OPERATOR HELPER 04/03/2013 Office visit Terese Davidson MD 04/03/2013 Nurse visit Kaylynn Mendez WASH OIL PUMP OPERATOR HELPER 03/28/2013 Office visit Sundeep Russell WASH OIL PUMP OPERATOR HELPER 03/21/2013 Office visit Kaylynn Mendez WASH OIL PUMP OPERATOR HELPER 03/20/2013 Office visit Terese Davidson MD 03/14/2013 Nurse visit Kaylynn Mendez WASH OIL PUMP OPERATOR HELPER 03/05/2013 Nurse visit Kaylynn Andrea WASH OIL PUMP OPERATOR HELPER 02/19/2013 Office visit Terese Davidson MD 02/16/2013 Nurse visit Kaylynn Mendez WASH OIL PUMP OPERATOR HELPER 02/09/2013 Office visit Sundeep Russell WASH OIL PUMP OPERATOR HELPER 02/08/2013 Nurse visit Kaylynn Andrea WASH OIL PUMP OPERATOR HELPER 02/01/2013 Nurse visit Kaylynn Walker WASH OIL PUMP OPERATOR HELPER 01/26/2013 Nurse visit Sabrina Andrea LICENSED NURSING ASSISTANT 01/25/2013 Office visit Kaylynn Andrea WASH OIL PUMP OPERATOR HELPER 01/22/2013 Office visit Yoan Castaneda MD 01/18/2013 Nurse visit Kaylynn Andrea WASH OIL PUMP OPERATOR HELPER 01/11/2013 Nurse visit Kaylynn Walker WASH OIL PUMP OPERATOR HELPER 01/05/2013 Nurse visit Kaylynn Mendez WASH OIL PUMP OPERATOR HELPER 12/29/2012 Office visit Kaylynn Andrea WASH OIL PUMP OPERATOR HELPER 11/27/2012 Office visit Kaylynn Mendez WASH OIL PUMP OPERATOR HELPER 11/08/2012 Voided Odell Tierney MD 11/08/2012 Office visit Odell Tierney MD 11/07/2012 Office visit Kaylynn Mendez WASH OIL PUMP OPERATOR HELPER 10/31/2012 Office visit Kaylynn Andrea WASH OIL PUMP OPERATOR HELPER 10/31/2012 [facility] John Hoskins MD 10/19/2012 Office visit Genoveva Ayala WASH OIL PUMP OPERATOR HELPER 10/10/2012 Office visit Kaylynn Mendez WASH OIL PUMP OPERATOR HELPER 10/03/2012 Office visit Kaylynn Andrea WASH OIL PUMP OPERATOR HELPER 09/26/2012 Office visit Kaylynn Mendez WASH OIL PUMP OPERATOR HELPER 09/06/2012 Office visit Odell Tierney MD 09/06/2012 Office visit Kaylynn Mendez WASH OIL PUMP OPERATOR HELPER 08/31/2012 Voided Kaylynn Mendez WASH OIL PUMP OPERATOR HELPER 07/28/2012 Office visit Kaylynn Mendez WASH OIL PUMP OPERATOR HELPER 07/27/2012 Office visit David Joyner DO 07/20/2012 [facility] David Joyner DO 07/13/2012 [facility] David Joyner DO 07/11/2012 Office visit Kaylynn Mendez WASH OIL PUMP OPERATOR HELPER 06/27/2012 [facility] Odell Tierney MD 06/21/2012 Office visit Odell Tierney MD 06/21/2012 Office visit David Joyner DO 06/20/2012 Office visit Brittni Yanez WASH OIL PUMP OPERATOR HELPER 06/06/2012 Office visit Odell Tierney MD 05/03/2012 Office visit Kaylynn Mendez WASH OIL PUMP OPERATOR HELPER 04/28/2012 Office visit Brittni Yanez WASH OIL PUMP OPERATOR HELPER 04/11/2012 Office visit Kaylynn Mendez WASH OIL PUMP OPERATOR HELPER 04/06/2012 Hospital John Hoskins MD 03/30/2012 Office visit Kaylynn Andrea WASH OIL PUMP OPERATOR HELPER 03/15/2012 Office visit Odell Tierney MD 03/15/2012 Office visit Kaylynn Andrea WASH OIL PUMP OPERATOR HELPER 02/09/2012 Office visit Kaylynn Walker WASH OIL PUMP OPERATOR HELPER 12/23/2011 Office visit Kaylynn Walker WASH OIL PUMP OPERATOR HELPER 11/02/2011 Office visit Kaylynn Walker WASH OIL PUMP OPERATOR HELPER 10/14/2011 Office visit Kaylynn Walker WASH OIL PUMP OPERATOR HELPER 09/27/2011 Office visit Kaylynn Walker WASH OIL PUMP OPERATOR HELPER 08/19/2011 [facility] John Hoskins MD 08/18/2011 Office visit Kaylynn Walker WASH OIL PUMP OPERATOR HELPER 08/18/2011 [facility] John Hoskins MD 08/02/2011 Office visit Kaylynn Mendez WASH OIL PUMP OPERATOR HELPER 07/08/2011 Office visit Kaylynn Andrea WASH OIL PUMP OPERATOR HELPER 07/05/2011 Office visit Odell Tierney MD 06/15/2011 Office visit Kaylynn Walker WASH OIL PUMP OPERATOR HELPER 05/14/2011 Office visit Kaylynn Andera WASH OIL PUMP OPERATOR HELPER 05/11/2011 Office visit Odell Tierney MD 04/28/2011 Office visit Kaylynn Mendez WASH OIL PUMP OPERATOR HELPER 03/02/2011 Office visit Chadd Norris [...]
--- OUTSIDE RECORDS SUMMARY | 2018-05-10 02:11 | XMS REPORT ---
Author Author Heena Dumont Organization [facility] Address [address] [place] [id number] Care Team Providers Care Baker Name Role Phone Heena Dumont PCP Allergies [...] 08/27/2014 use as directed for 99 days [place] oral tablet 5-325 mg 06/17/2014 06/27/2014 take [...] the evening changed to crestor Flonase Nasal [place], Suspension 50 mcg/actuation 06/20/2012 10/31/2012 inhale 1 [...] 0.60 mg/dLCALCIUM 10.90 mg/ dLeGFR >60 mL/min/1.73 [id number] 45.0 U/L 08/31/2013 10:54 AM GLUCOSE 255.0 [...] 0.40 mg/ dLCALCIUM 10.60 mg/dLeGFR >60 mL/min/1.73 [id number] 369.0 mg/ dLCHOLESTEROL 153.0 mg/dLHDL 26.0 mg/dLLDL [...] BILI 0.30 mg/dLCALCIUM 10.0 mg/dLeGFR >60 mL/min/1.73 [id number] YELLOW APPEARANCE CLEAR SPEC GRAV 1.010 pH [...] 141 Influenza 04/24/2014 [facility] PMC Fluzone [id number] Intramuscular Left Upper Arm 02/27/2014 01/15/2014 141 [...] 2014 1:54PM Osteoporosis Oct 09 2014 1:54PM Payers Insurance Name Company Name Plan Name Plan Number Policy Number Policy Group Number Start Date Medicare Part A Medicare Part A [id number] N/A [facility] [id number] N/A [facility] Asst Prog - [facility] [id number] May [facility] Plan of [id number] Wednesday, 2012 Medicare Part B Medicare [facility] [id number] Monday, 2000 [place] Medical Assistance [facility] Medical Assistance Pro [id number] Tuesday, 2009 History of Encounters Visit Date Visit Type Provider 10/18/2014 Office visit Heena Dumont MD 10/09/2014 Office visit Heena Dumont MD 09/25/2014 Office visit Heena Dumont MD 09/17/2014 Office visit Kaylynn Mendez LAY MIDWIFE 09/04/2014 Office visit Heena Dumont MD 08/28/2014 Office visit Kaylynn Mendez LAY MIDWIFE 08/01/2014 Office visit Kaylynn Mendez LAY MIDWIFE 07/29/2014 Office visit Heena Dumont MD 07/25/2014 Nurse visit Heena Dumont MD 07/17/2014 Office visit Kaylynn Mendez LAY MIDWIFE 07/11/2014 Office visit Heena Dumont MD 07/01/2014 Office visit Heena Dumont MD 06/25/2014 Office visit Kaylynn Mendez LAY MIDWIFE 06/12/2014 Office visit Kaylynn Mendez LAY MIDWIFE 06/06/2014 Office visit Kaylynn Mendez LAY MIDWIFE 05/27/2014 Office visit Heena Dumont MD 04/20/2014 Office visit Yesica Falcon LAY MIDWIFE 03/29/2014 Office visit Na Jones LAY MIDWIFE 03/15/2014 Office visit Heena Dumont MD 2014 Office visit Heena Dumont MD 2014 [facility] John Hoskins MD 02/27/2014 Nurse visit Heena Dumont MD 02/13/2014 Office visit Lena El LAY MIDWIFE 02/07/2014 Office visit Heena Dumont MD 02/03/2014 Office visit Na Jones LAY MIDWIFE 01/30/2014 Office visit Kaylynn Mendez LAY MIDWIFE 01/24/2014 Office visit Sundeep Russell LAY MIDWIFE 01/16/2014 Office visit Kaylynn Mendez LAY MIDWIFE 01/10/2014 Nurse visit Kaylynn Mendez LAY MIDWIFE 01/08/2014 Office visit Kaylynn Mendez LAY MIDWIFE 12/05/2013 Office visit Kaylynn Mendez LAY MIDWIFE 11/21/2013 Office visit Kaylynn Mendez LAY MIDWIFE 10/23/2013 Office visit Brittni Yanez LAY MIDWIFE 10/17/2013 Nurse visit Heena Dumont MD 10/12/2013 Office visit Kaylynn Mendez LAY MIDWIFE 10/02/2013 Office visit Heena Dumont MD 09/20/2013 Voided Heena Dumont MD 09/20/2013 Nurse visit Kaylynn Walker LAY MIDWIFE 09/14/2013 Office visit Kaylynn Walker LAY MIDWIFE 09/05/2013 Office visit Sundeep Russell LAY MIDWIFE 09/04/2013 Nurse visit Kaylynn Walker LAY MIDWIFE 08/31/2013 Office visit Kaylynn Walker LAY MIDWIFE 08/23/2013 Office visit Heena Dumont MD 08/10/2013 Office visit Kaylynn Walker LAY MIDWIFE 07/25/2013 Office visit Kaylynn Walker LAY MIDWIFE 07/18/2013 Office visit Kaylynn Walker LAY MIDWIFE 07/12/2013 Office visit Kaylynn Walker LAY MIDWIFE 06/28/2013 Nurse visit Kaylynn Walker LAY MIDWIFE 06/14/2013 Nurse visit Kaylynn Walker LAY MIDWIFE 06/08/2013 Nurse visit Kaylynn Walker LAY MIDWIFE 05/31/2013 Nurse visit Chadd Norris DO 05/18/2013 Office visit Terese Davidson MD 05/16/2013 Office visit Kaylynn Walker LAY MIDWIFE 05/09/2013 Office visit Kaylynn Walker LAY MIDWIFE 04/29/2013 [facility] John Hoskins MD 04/25/2013 Nurse visit Kaylynn Walker LAY MIDWIFE 04/17/2013 Office visit Kaylynn Walker LAY MIDWIFE 04/03/2013 Office visit Terese Davidson MD 04/03/2013 Nurse visit Kaylynn Walker LAY MIDWIFE 03/28/2013 Office visit Sundeep Russell LAY MIDWIFE 03/21/2013 Office visit Kaylynn Mendez LAY MIDWIFE 03/20/2013 Office visit Terese Davidson MD 03/14/2013 Nurse visit Kaylynn Walker LAY MIDWIFE 03/05/2013 Nurse visit Kaylynn Walker LAY MIDWIFE 02/19/2013 Office visit Terese Davidson MD 02/16/2013 Nurse visit Kaylynn Walker LAY MIDWIFE 02/09/2013 Office visit Sundeep Russell LAY MIDWIFE 02/08/2013 Nurse visit Kaylynn Walker LAY MIDWIFE 02/01/2013 Nurse visit Kaylynn Walker LAY MIDWIFE 01/26/2013 Nurse visit Sabrina Mendez LIFT TRUCK MECHANIC 01/25/2013 Office visit Kaylynn Walker LAY MIDWIFE 01/22/2013 Office visit Yoan Castaneda MD 01/18/2013 Nurse visit Kaylynn Walker LAY MIDWIFE 01/11/2013 Nurse visit Kaylynn Walker LAY MIDWIFE 01/05/2013 Nurse visit Kaylynn Walker LAY MIDWIFE 12/29/2012 Office visit Kaylynn Walker LAY MIDWIFE 11/27/2012 Office visit Kaylynn Mendez LAY MIDWIFE 11/08/2012 Voided Odell Tierney MD 11/08/2012 Office visit Odell Tierney MD 11/07/2012 Office visit Kaylynn Walker LAY MIDWIFE 10/31/2012 Office visit Kaylynn Andrea LAY MIDWIFE 10/31/2012 Hospital John Hoskins MD 10/19/2012 Office visit Genoveva Ayala LAY MIDWIFE 10/10/2012 Office visit Kaylynn Walker LAY MIDWIFE 10/03/2012 Office visit Kaylynn Walker LAY MIDWIFE 09/26/2012 Office visit Kaylynn Walker LAY MIDWIFE 09/06/2012 Office visit Odell Tierney MD 09/06/2012 Office visit Kaylynn Walker LAY MIDWIFE 08/31/2012 Voided Kaylynn Andrea LAY MIDWIFE 07/28/2012 Office visit Kaylynn Walker LAY MIDWIFE 07/27/2012 Office visit David Joyner DO 07/20/2012 Hospital David Sheriffuman DO 07/13/2012 Hospital David Bouman DO 07/11/2012 Office visit Kaylynn Andrea LAY MIDWIFE 06/27/2012 [facility] Odell Tierney MD 06/21/2012 Office visit Odell Tierney MD 06/21/2012 Office visit David Joyner DO 06/20/2012 Office visit Brittni Yanez LAY MIDWIFE 06/06/2012 Office visit Odell Tierney MD 05/03/2012 Office visit Kaylynn Mendez LAY MIDWIFE 04/28/2012 Office visit Brittni Yanez LAY MIDWIFE 04/11/2012 Office visit Kaylynn Mendez LAY MIDWIFE 04/06/2012 Hospital John Hoskins MD 03/30/2012 Office visit Kaylynn Mendez LAY MIDWIFE 03/15/2012 Office visit Odell Tierney MD 03/15/2012 Office visit Kaylynn Mendez LAY MIDWIFE 02/09/2012 Office visit Kaylynn Walker LAY MIDWIFE 12/23/2011 Office visit Kaylynn Walker LAY MIDWIFE 11/02/2011 Office visit Kaylynn Walker LAY MIDWIFE 10/14/2011 Office visit Kaylynn Walker LAY MIDWIFE 09/27/2011 Office visit Kaylynn Walker LAY MIDWIFE 08/19/2011 Hospital John Hoskins MD 08/18/2011 Office visit Kaylynn Mendez LAY MIDWIFE 08/18/2011 Hospital John Hoskins MD 08/02/2011 Office visit Kaylynn Walker LAY MIDWIFE 07/08/2011 Office visit Kaylynn Walker LAY MIDWIFE 07/05/2011 Office visit Odell Tierney MD 06/15/2011 Office visit Kaylynn Mendez LAY MIDWIFE 05/14/2011 Office visit Kaylynn Mendez LAY MIDWIFE 05/11/2011 Office visit Odell Tierney MD 04/28/2011 Office visit Kaylynn Mendez LAY MIDWIFE 03/02/2011 Office visit Chadd Norris DO 02/17/2011 [...]
--- OUTSIDE RECORDS SUMMARY | 2018-05-10 02:28 | XMS REPORT ---
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 iwfraxoj-meajcjaui-NO 3.5-10,000-1 mg/mL-unit/mL-% otic drops,suspension 201607/23/2016 instill 4 [...] Reviewed 04/28/2011 12:00 AM Decadron 1 mg NDC#[id number] (Jr) Reviewed 04/28/2011 12:00 AM Depo-Medrol 80 mg NDC#[id number]-Viinzzez Reviewed 09/02/2015 12:00 AM Toradol 60 Mg NDC#7700-1812-30 Reviewed 09/02/2015 12:00 AM Phenergan, Up to 50 Mg RHC Medicaid Reviewed 09/16/2015 12:00 AM Toradol 60 Mg NDC#9473-1412-86 Reviewed 09/16/2015 12:00 AM Phenergan Up to 50 mg RHC Medicare Reviewed 05/11/2011 12:00 AM N BLOCK INJ OCCIPITAL Reviewed 05/11/2011 12:00 AM Kenalog Mo-[address]-20 ANNA Reviewed 11/13/2015 12:00 AM ASSAY OF [...] INJ SC/IM Reviewed 07/08/2011 12:00 AM Toradol,15mg [facility]#[id number], [place] Reviewed 07/08/2011 12:00 AM Phenergan 50 Mg Im [facility] 7099-8002-08 [facility] Reviewed 01/21/2016 12:00 AM ECG MONIT/REPRT UP TO 48 HRS Returned 08/02/2011 12:00 AM THER/PROPH/DIAG INJ SC/IM Reviewed 08/02/2011 12:00 AM Decadron 1 mg [facility]#[id number] (Jr) Reviewed 08/02/2011 12:00 AM Depo-Medrol 80 mg [facility]#[id number]-Prfyhbre Reviewed 03/05/2016 12:00 AM COMPLETE CBC W/AUTO DIFF WBC Returned 03/05/2016 12:00 AM STREP A ASSAY W/OPTIC Returned 03/05/2016 12:00 AM C-REACTIVE PROTEIN Returned 03/18/2016 12:00 AM [facility] MEDICARE - flu vaccine administration Reviewed [...] Reviewed 09/27/2011 12:00 AM Depo-Medrol 80 mg NDC#[id number]-Qeajrlun Reviewed 07/06/2016 12:00 AM CHEST X-RAY 4/> VIEWS Returned 10/14/2011 12:00 AM X-RAY EXAM OF ABDOMEN Reviewed 10/14/2011 12:00 AM URINALYSIS AUTO W/O SCOPE Reviewed 12/23/2011 12:00 AM THER/PROPH/DIAG INJ SC/IM Reviewed 12/23/2011 12:00 AM Decadron 1 mg NDC#[id number] (Jr) Reviewed 12/23/2011 12:00 AM Depo-Medrol 80 mg ND#[id number]-Guuyfxyw Reviewed 02/09/2012 12:00 AM THER/PROPH/DIAG INJ SC/IM Reviewed 02/09/2012 12:00 AM Decadron 1 mg ND#[id number] (Jr) Reviewed 02/09/2012 12:00 AM Depo-Medrol 80 mg NDC#[id number]-Wjiljrks Reviewed 03/15/2012 12:00 AM N BLOCK INJ OCCIPITAL Reviewed 03/15/2012 12:00 AM Kenalog Mw-[address]-20 ANNA Reviewed 04/11/2012 12:00 AM COMPLETE CBC W/AUTO DIFF WBC Reviewed 04/11/2012 12:00 AM COMPREHEN METABOLIC PANEL Reviewed 04/11/2012 12:00 AM LIPID PANEL Reviewed 04/11/2012 12:00 AM ASSAY THYROID STIM HORMONE Reviewed 06/20/2012 12:00 AM THER/PROPH/DIAG INJ SC/IM Reviewed 06/20/2012 12:00 AM Decadron, Per 1 Mg ND# [address]-89 Reviewed 06/20/2012 12:00 AM Depo-Medrol, Per 80 Mg ND#5555-6569-28 Reviewed 09/06/2012 12:00 AM N BLOCK INJ OCCIPITAL Reviewed 09/06/2012 12:00 AM Kenalog Mu-[address]-20 ANNA Reviewed 09/06/2012 12:00 AM X-RAY EXAM RIBS UNI 2 VIEWS Reviewed 09/26/2012 12:00 AM THER/PROPH/DIAG INJ SC/IM Reviewed 09/26/2012 12:00 AM Decadron, Per 1 Mg [facility]# [address]-77 Reviewed 09/26/2012 12:00 AM Depo-Medrol, Per 80 Mg [facility]#4124-6440-82 Reviewed 10/03/2012 12:00 AM URINALYSIS AUTO W/O SCOPE Reviewed 10/03/2012 12:00 AM THER/PROPH/DIAG INJ SC/IM Reviewed 10/03/2012 12:00 AM Toradol 60 Mg [facility]#3831-4808-25 Reviewed 10/03/2012 12:00 AM Phenergan, 25Mg [facility]#2137-4265-04 Reviewed 10/19/2012 12:00 AM N BLOCK INJ OCCIPITAL Reviewed 10/19/2012 12:00 AM Kenalog, Per 10 Mg [facility]#0765-8392-92 Reviewed 10/19/2012 12:00 AM Toradol 30 Mg [facility]#6086-8707-90 Reviewed 10/19/2012 12:00 AM THER/PROPH/DIAG INJ SC/IM Reviewed 10/31/2012 12:00 AM COMPLETE CBC W/AUTO DIFF WBC Reviewed 10/31/2012 12:00 AM COMPREHEN METABOLIC PANEL Reviewed 10/31/2012 12:00 AM LIPID PANEL Reviewed 11/03/2012 12:[address] THORAX W/O & W/DYE Reviewed 11/08/2012 12:00 AM N BLOCK INJ OCCIPITAL Reviewed 11/08/2012 12:00 AM Kenalog Lh-[address]-20 ANNA Reviewed 11/27/2012 12:00 AM COMPLETE CBC [...] 01/25/2013 12:00 AM Decadron, Per 1 Mg [facility]# [address]-95 Reviewed 01/25/2013 12:00 AM Depo-Medrol, Per 80 Mg [facility]#6053-2364-33 Reviewed 01/26/2013 12:00 AM IMMUNOTHERAPY INJECTIONS Reviewed [...] 05/16/2013 12:00 AM Decadron, Per 1 Mg [facility]# [address]-14 Reviewed 05/16/2013 12:00 AM Depo-Medrol, Per 80 Mg [facility]#0850-5438-10 Reviewed 05/31/2013 12:00 AM IMMUNOTHERAPY INJECTIONS Reviewed 06/08/2013 12:00 AM IMMUNOTHERAPY INJECTIONS Reviewed 06/14/2013 12:00 AM IMMUNOTHERAPY INJECTIONS Reviewed 06/28/2013 12:00 AM IMMUNOTHERAPY INJECTIONS Reviewed 07/12/2013 12:00 AM X-RAY EXAM RIBS UNI 2 VIEWS Reviewed 07/18/2013 12:00 AM Toradol 60 Mg [facility]#0412-3679-85 Reviewed 07/18/2013 12:00 AM THER/PROPH/DIAG INJ SC/IM Reviewed 08/23/2013 12:00 AM COMPLETE CBC W/AUTO DIFF WBC Reviewed 08/23/2013 12:00 AM COMPREHEN METABOLIC PANEL Reviewed 08/23/2013 12:00 AM LIPID PANEL Reviewed 08/31/2013 12:00 AM X-RAY EXAM OF LOWER LEG Reviewed 09/04/2013 12:00 AM IMMUNOTHERAPY INJECTIONS Reviewed 09/14/2013 12:00 AM THER/PROPH/DIAG INJ SC/IM Reviewed 09/14/2013 12:00 AM Decadron, Per 1 Mg [facility]# [address]-70 Reviewed 09/14/2013 12:00 AM Depo-Medrol, Per 80 Mg [facility]#0165-0454-40 Reviewed 09/20/2013 12:00 AM IMMUNOTHERAPY INJECTIONS Reviewed [...] INJ OCCIPITAL Reviewed 12/10/2009 12:00 AM Kenalog Ph-[address]-20 ANNA Reviewed 12/16/2009 12:00 AM HIV-1ANTIBODY Reviewed 12/16/2009 12:00 AM COMPLETE CBC W/AUTO DIFF WBC Reviewed 12/16/2009 12:00 AM METABOLIC PANEL TOTAL CA Reviewed 12/16/2009 12:00 AM Type and screen Reviewed 12/16/2009 12:00 AM PROTHROMBIN TIME Reviewed 12/16/2009 12:00 AM THROMBOPLASTIN TIME PARTIAL Reviewed 03/18/2010 12:00 AM DRAIN/INJ JOINT/BURSA W/O US Reviewed 03/18/2010 12:00 AM Kenalog Dx-[address]-20 ANNA Reviewed 11/21/2013 12:00 AM RADEX HAND MINIMUM 3 VIEWS Reviewed 06/03/2010 12:00 AM INJ TRIGGER POINT 1/2 MUSCL Reviewed 06/03/2010 12:00 AM Kenalog per 10Mg [facility]#[address]-74(Niall) Reviewed 12/05/2013 12:00 AM COMPLETE CBC W/AUTO [...] 07/23/2010 12:00 AM Kenalog per 10Mg [facility]#[address]-97(Niall) Reviewed 2014 12:00 AM COMPLETE CBC W/AUTO [...] INJ OCCIPITAL Reviewed 10/01/2010 12:00 AM Kenalog Uw-[address]-20 ANNA Reviewed 07/25/2014 12:00 AM THER/PROPH/DIAG INJ [...] Quant,IgM <0.80 RMSF , IgG, EIA Negative [facility] Spotted Fever,IgM 0.51 E. chaffeensis [...] 141 Influenza 04/24/2014 sanofi pasteur PMC Fluzone [id number] Intramuscular Left Upper Arm 02/27/2014 01/15/2014 141 Influenza 02/13/2015 sanofi pasteur PMC Fluzone [id number] Intramuscular Left Deltoid 02/13/2015 01/03/2015 140 Tdap 06/06/2015 [employer] SKB BOOSTRIX [id number] Intramuscular Left Deltoid 06/06/2015 07/23/2014 115 Influenza 03/18/2016 sanofi pasteur PMC Fluzone [id number] Intramuscular Left Deltoid 03/17/2016 01/03/2015 141 History [...] 9:03AM Lumbar radiculitis Aug 27 2016 9:35AM Payers Insurance Name Company Name Plan Name Plan Number Policy Number Policy Group Number Start Date Medicare RHC Medicare RHC [id number] N/A [facility] RHC Comm [id number] N/A Medicare Part A Medicare - Lab/Xray [id number] N/A Medicare Part B Medicare Of [place] [id number] Monday, February 28, 2000 [place] [employer] [place] [employer] [place] [id number] Tuesday, November 10, 2009 Medicare Part A Medicare Part A [id number] N/A [place] [employer] - RHC [place] [employer] - RHC [id number] May [facility] Comm Plan of [id number] Wednesday, May 30, 2012 History of Encounters [...] Dumont MD 04/13/2016 Office visit Kaylynn Mendez FRONT END WEB DEVELOPER 04/02/2016 Office visit Lena El FRONT END WEB DEVELOPER 04/02/2016 Office visit Heena Dumont MD 03/26/2016 Office visit Yesica Falcon FRONT END WEB DEVELOPER 03/17/2016 Office visit Heena Dumont MD 03/05/2016 Office visit Kaylynn Mendez FRONT END WEB DEVELOPER 02/16/2016 Office visit Heena Dumont MD 02/14/2016 Office visit Na Jones FRONT END WEB DEVELOPER 01/16/2016 Office visit Heena Dumont MD 12/16/2015 Office visit Heena Dumont MD 11/24/2015 Office visit Kaylynn Mendez FRONT END WEB DEVELOPER 11/18/2015 Office visit Heena Dumont MD 11/03/2015 Office visit Sundeep Russell FRONT END WEB DEVELOPER 10/20/2015 Office visit Kaylynn Mendez FRONT END WEB DEVELOPER 09/23/2015 Office visit Kaylynn Mendez FRONT END WEB DEVELOPER 09/16/[address] Pepe Figueroa MD 09/02/2015 Office visit Kaylynn Mendez FRONT END WEB DEVELOPER 09/01/2015 Office visit Kaylynn Mendez FRONT END WEB DEVELOPER 07/30/2015 Office visit Heena Dumont MD 07/15/2015 Office visit Kaylynn Mendez FRONT END WEB DEVELOPER 07/04/2015 Office visit Heena Dumont MD 06/06/2015 Office visit Heena Dumont MD 06/06/2015 Office visit Kaylynn Mendez FRONT END WEB DEVELOPER 06/02/2015 Office visit Kaylynn Mendez FRONT END WEB DEVELOPER 05/26/2015 Office visit Kaylynn Mendez FRONT END WEB DEVELOPER 05/20/2015 Office visit Kaylynn Mendez FRONT END WEB DEVELOPER 05/08/2015 Office visit Heena Dumont MD 05/06/2015 Office visit Kaylynn Mendez FRONT END WEB DEVELOPER 04/29/2015 Office visit Kaylynn Mendez FRONT END WEB DEVELOPER 03/27/2015 Voided Brittni Yanez FRONT END WEB DEVELOPER 03/21/2015 Office visit Heena Dumont MD 03/12/2015 Office visit Kaylynn Mendez FRONT END WEB DEVELOPER 02/26/2015 Office visit Brittni Yanez FRONT END WEB DEVELOPER 02/13/2015 Office visit Heena Dumont MD 01/15/2015 Office visit Brittni Yanez FRONT END WEB DEVELOPER 01/13/2015 Office visit Heena Dumont MD 01/08/[address] Carol Fowlre MD 01/01/2015 Office visit Brittni Yanez FRONT END WEB DEVELOPER 12/13/2014 Office visit Heena Dumont MD 11/27/2014 Office visit Kaylynn Mendez FRONT END WEB DEVELOPER 11/14/2014 Office visit Heena Dumont MD 10/18/2014 Office visit Heena Dumont MD 10/17/2014 [facility] Eliseo Hoskins MD 10/09/2014 Office visit Heena Dumont MD 09/25/2014 Office visit Heena Dumont MD 09/17/2014 Office visit Kaylynn Mendez FRONT END WEB DEVELOPER 09/04/2014 Office visit Heena Dumont MD 08/28/2014 Office visit Kaylynn Mendez FRONT END WEB DEVELOPER 08/23/2014 [facility] Eliseo Hoskins MD 08/01/2014 Office visit Kaylynn Mendez FRONT END WEB DEVELOPER 07/29/2014 Office visit Heena Dumont MD 07/25/2014 Nurse visit Heena Dumont MD 07/17/2014 Office visit Kaylynn Mendez FRONT END WEB DEVELOPER 07/11/2014 Office visit Heena Dumont MD 07/01/2014 Office visit Heena Dumont MD 06/25/2014 Office visit Kaylynn Mendez FRONT END WEB DEVELOPER 06/12/2014 Office visit Kaylynn Mendez FRONT END WEB DEVELOPER 06/06/2014 Office visit Kaylynn Mendez FRONT END WEB DEVELOPER 05/27/2014 Office visit Heena Dumont MD 04/20/2014 Office visit Yesica Falcon FRONT END WEB DEVELOPER 03/29/2014 Office visit Na Jones FRONT END WEB DEVELOPER 03/15/2014 Office visit Heena Dumont MD 2014 Office visit Heena Dumont MD 2014 [facility] John Hoskins MD 02/27/2014 Nurse visit Heena Dumont MD 02/13/2014 Office visit Lena El FRONT END WEB DEVELOPER 02/07/2014 Office visit Heena Dumont MD 02/03/2014 Office visit Na Jones FRONT END WEB DEVELOPER 01/30/2014 Office visit Kaylynn Mendez FRONT END WEB DEVELOPER 01/24/2014 Office visit Sundeep Russell FRONT END WEB DEVELOPER 01/16/2014 Office visit Kaylynn Mendez FRONT END WEB DEVELOPER 01/10/2014 Nurse visit Kaylynn Menedz FRONT END WEB DEVELOPER 01/08/2014 Office visit Kaylynn Mendez FRONT END WEB DEVELOPER 12/05/2013 Office visit Kaylynn Mendez FRONT END WEB DEVELOPER 11/21/2013 Office visit Kaylynn Mendez FRONT END WEB DEVELOPER 10/23/2013 Office visit Brittni Yanez FRONT END WEB DEVELOPER 10/17/2013 Nurse visit Heena Dumont MD 10/12/2013 Office visit Kaylynn Mendez FRONT END WEB DEVELOPER 10/02/2013 Office visit Heena Dumont MD 09/20/2013 Nurse visit Kaylynn Mendez FRONT END WEB DEVELOPER 09/20/2013 Voided Heena Dumont MD 09/14/2013 Office visit Kaylynn Mendez FRONT END WEB DEVELOPER 09/05/2013 Office visit Sundeep Russell FRONT END WEB DEVELOPER 09/04/2013 Nurse visit Kaylynn Walker FRONT END WEB DEVELOPER 08/31/2013 Office visit Kaylynn Walker FRONT END WEB DEVELOPER 08/23/2013 Office visit Heena Dumont MD 08/10/2013 Office visit Kaylynn Walker FRONT END WEB DEVELOPER 07/25/2013 Office visit Kaylynn Walker FRONT END WEB DEVELOPER 07/18/2013 Office visit Kaylynn Walker FRONT END WEB DEVELOPER 07/12/2013 Office visit Kaylynn Walker FRONT END WEB DEVELOPER 06/28/2013 Nurse visit Kaylynn Walker FRONT END WEB DEVELOPER 06/14/2013 Nurse visit Kaylynn Walker FRONT END WEB DEVELOPER 06/08/2013 Nurse visit Kaylynn Walker FRONT END WEB DEVELOPER 05/31/2013 Nurse visit Chadd Norris DO 05/18/2013 Office visit Terese Davidson MD 05/16/2013 Office visit Kaylynn Walker FRONT END WEB DEVELOPER 05/09/2013 Office visit Kaylynn Mendez FRONT END WEB DEVELOPER 04/29/2013 [facility] John Hoskins MD 04/25/2013 Nurse visit Kaylynn Walker FRONT END WEB DEVELOPER 04/17/2013 Office visit Kaylynn Walker FRONT END WEB DEVELOPER 04/03/2013 Nurse visit Kaylynn Walker FRONT END WEB DEVELOPER 04/03/2013 Office visit Terese Davidson MD 03/28/2013 Office visit Sundeep Russell FRONT END WEB DEVELOPER 03/21/2013 Office visit Kaylynn Mendez FRONT END WEB DEVELOPER 03/20/2013 Office visit Terese Davidson MD 03/14/2013 Nurse visit Kaylynn Walker FRONT END WEB DEVELOPER 03/05/2013 Nurse visit Kaylynn Mendez FRONT END WEB DEVELOPER 02/19/2013 Office visit Terese Davidson MD 02/16/2013 Nurse visit Kaylynn Walker FRONT END WEB DEVELOPER 02/09/2013 Office visit Sundeep Russell FRONT END WEB DEVELOPER 02/08/2013 Nurse visit Kaylynn Walker FRONT END WEB DEVELOPER 02/01/2013 Nurse visit Kaylynn Walker FRONT END WEB DEVELOPER 01/26/2013 Nurse visit Sabrina Mendez PLASTIC MAKER 01/25/2013 Office visit Kaylynn Walker FRONT END WEB DEVELOPER 01/22/2013 Office visit Yoan Castaneda MD 01/18/2013 Nurse visit Kaylynn Walker FRONT END WEB DEVELOPER 01/11/2013 Nurse visit Kaylynn Walker FRONT END WEB DEVELOPER 01/05/2013 Nurse visit Kaylynn Walker FRONT END WEB DEVELOPER 12/29/2012 Office visit Kaylynn Walker FRONT END WEB DEVELOPER 11/27/2012 Office visit Kaylynn Mendez FRONT END WEB DEVELOPER 11/08/2012 Office visit Odell Tierney MD 11/08/2012 Voided Odell Tierney MD 11/07/2012 Office visit Kaylynn Mendez FRONT END WEB DEVELOPER 10/31/2012 [facility] John Hoskins MD 10/31/2012 Office visit Kaylynn Mendez FRONT END WEB DEVELOPER 10/19/2012 Office visit Genoveva Ayala FRONT END WEB DEVELOPER 10/10/2012 Office visit Kaylynn Mendez FRONT END WEB DEVELOPER 10/03/2012 Office visit Kaylynn Mendez FRONT END WEB DEVELOPER 09/26/2012 Office visit Kaylynn Mendez FRONT END WEB DEVELOPER 09/06/2012 Office visit Kaylynn Mendez FRONT END WEB DEVELOPER 09/06/2012 Office visit Odell Tierney MD 08/31/2012 Voided Kaylynn Mendez FRONT END WEB DEVELOPER 07/28/2012 Office visit Kaylynn Mendez FRONT END WEB DEVELOPER 07/27/2012 Office visit David Ar DO 07/20/2012 [facility] David Ar DO 07/13/2012 [facility] David Ar DO 07/11/2012 Office visit Kaylynn Mendez FRONT END WEB DEVELOPER 06/27/2012 [facility] Oedll Tierney MD 06/21/2012 Office visit David Joyner DO 06/21/2012 Office visit Odell Tierney MD 06/20/2012 Office visit Brittni Yanez FRONT END WEB DEVELOPER 06/06/2012 Office visit Odell Tierney MD 05/03/2012 Office visit Kaylynn Mendez FRONT END WEB DEVELOPER 04/28/2012 Office visit Brittni Yanez FRONT END WEB DEVELOPER 04/11/2012 Office visit Kaylynn Mendez FRONT END WEB DEVELOPER 04/06/2012 [facility] John Hoskins MD 03/30/2012 Office visit Kaylynn Mendez FRONT END WEB DEVELOPER 03/15/2012 Office visit Kaylynn Mendez FRONT END WEB DEVELOPER 03/15/2012 Office visit Odell Tierney MD 02/09/2012 Office visit Kaylynn Mendez FRONT END WEB DEVELOPER 12/23/2011 Office visit Kaylynn Mendez FRONT END WEB DEVELOPER 11/02/2011 Office visit Kaylynn Mendez FRONT END WEB DEVELOPER 10/14/2011 Office visit Kaylynn Mendez FRONT END WEB DEVELOPER 09/27/2011 Office visit Kaylynn Mendez FRONT END WEB DEVELOPER 08/19/2011 Hospital John Hoskins MD 08/18/2011 [facility] John Hoskins MD 08/18/2011 Office visit Kaylynn Mendez FRONT END WEB DEVELOPER 08/02/2011 Office visit Kaylynn Mendez FRONT END WEB DEVELOPER 07/08/2011 Office visit Kaylynn Mendez FRONT END WEB DEVELOPER 07/05/2011 Office visit Odlel Tierney MD 06/15/2011 Office visit Kaylynn Mendez FRONT END WEB DEVELOPER 05/14/2011 Office visit Kaylynn Mendez FRONT END WEB DEVELOPER 05/11/2011 Office visit Odell Tierney MD 04/28/2011 Office visit Kaylynn Mendez FRONT END WEB DEVELOPER 03/02/2011 Office visit Chadd Norris DO 02/17/2011 [...] 12/23/2009 Surgery Yoan Castaneda MD 12/16/2009 Surgery Yona Castaneda MD 12/10/2009 Office visit Odell Tierney MD 11/26/2009 Office visit Yoan Castaneda MD 11/17/2009 Office visit Odell Tierney MD 11/10/2009 Office visit Chadd Norris DO
--- OUTSIDE RECORDS SUMMARY | 2018-05-10 02:32 | XMS REPORT ---
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 Name Role Phone Kaylynn Mendez PCP Unavailable Allergies and Adverse Reactions Name Reaction Notes Aspirin Methadone Ultram Vicodin Plan of Treatment Planned Activity Comments Planned Date Planned Time Plan/Goal CINE/VID X-RAY THROAT/ESOPH 05/08/2015 12:00 AM COMPREHEN METABOLIC PANEL 05/20/2015 12:00 AM BORDETELLA ANTIBODY 05/20/2015 12:00 AM [...] 08/27/2014 use as directed for 99 days [place] 5-325 mg oral tablet 06/17/2014 06/27/2014 take [...] a day as needed for 30 days igwifzph-bebglxcut-GR 3.5-10,000-1 mg/mL-unit/mL-% otic drops,suspension 201401/08/2015 instill 4 [...] W/AUTO DIFF WBC Returned 05/20/2015 12:00 AM CHEST X-RAY 2VW FRONTAL&LATL Returned 04/28/2011 12:00 AM THER/PROPH/DIAG INJ SC/IM Reviewed 04/28/2011 12:00 AM Decadron 1 mg NDC#[id number] (Jr) Reviewed 04/28/2011 12:00 AM Depo-Medrol 80 mg NDC#[id number]-Nhcynwtf Reviewed 05/11/2011 12:00 AM N BLOCK INJ OCCIPITAL Reviewed 05/11/2011 12:00 AM Kenalog Sr-[address]-20 ANNA Reviewed 06/15/2011 12:00 AM COMPLETE CBC W/AUTO DIFF WBC Returned 06/15/2011 12:00 AM COMPREHEN METABOLIC PANEL Returned 07/08/2011 12:00 AM THER/PROPH/DIAG INJ SC/IM Reviewed 07/08/2011 12:00 AM Toradol,15mg ND#[id number], Adilene Reviewed 07/08/2011 12:00 AM Phenergan 50 Mg Im Nd 7182-2237-94 ALLIE Crandall Reviewed 08/02/2011 12:00 AM THER/PROPH/DIAG INJ SC/IM Reviewed 08/02/2011 12:00 AM Decadron 1 mg NDC#[id number] (Jr) Reviewed 08/02/2011 12:00 AM Depo-Medrol 80 mg NDC#[id number]-Sjyluzwd Reviewed 09/27/2011 12:00 AM THER/PROPH/DIAG INJ SC/IM Reviewed 09/27/2011 12:00 AM Depo-Medrol 80 mg NDC#[id number]-Nveojsvc Reviewed 10/14/2011 12:00 AM X-RAY EXAM OF ABDOMEN Returned 10/14/2011 12:00 AM URINALYSIS AUTO W/O SCOPE Reviewed 12/23/2011 12:00 AM THER/PROPH/DIAG INJ SC/IM Reviewed 12/23/2011 12:00 AM Decadron 1 mg NDC#[id number] (Jr) Reviewed 12/23/2011 12:00 AM Depo-Medrol 80 mg NDC#[id number]-Dvspnohl Reviewed 02/09/2012 12:00 AM THER/PROPH/DIAG INJ SC/IM Reviewed 02/09/2012 12:00 AM Decadron 1 mg NDC#[id number] (Jr) Reviewed 02/09/2012 12:00 AM Depo-Medrol 80 mg NDC#[id number]-Gqlxinrh Reviewed 03/15/2012 12:00 AM N BLOCK INJ OCCIPITAL Reviewed 03/15/2012 12:00 AM Kenalog Gv-[address]-20 ANNA Reviewed 04/11/2012 12:00 AM COMPLETE CBC W/AUTO DIFF WBC Returned 04/11/2012 12:00 AM COMPREHEN METABOLIC PANEL Returned 04/11/2012 12:00 AM LIPID PANEL Returned 04/11/2012 12:00 AM ASSAY THYROID STIM HORMONE Returned 06/20/2012 12:00 AM THER/PROPH/DIAG INJ SC/IM Reviewed 06/20/2012 12:00 AM Decadron, Per 1 Mg ND# [address]-69 Reviewed 06/20/2012 12:00 AM Depo-Medrol, Per 80 Mg ND#1137-9773-93 Reviewed 09/06/2012 12:00 AM N BLOCK INJ OCCIPITAL Reviewed 09/06/2012 12:00 AM Kenalog Vf-[address]-20 ANNA Reviewed 09/06/2012 12:00 AM X-RAY EXAM RIBS UNI 2 VIEWS Returned 09/26/2012 12:00 AM THER/PROPH/DIAG INJ SC/IM Reviewed 09/26/2012 12:00 AM Decadron, Per 1 Mg ND# [address]-67 Reviewed 09/26/2012 12:00 AM Depo-Medrol, Per 80 Mg ND#6319-2582-94 Reviewed 10/03/2012 12:00 AM URINALYSIS AUTO W/O SCOPE Reviewed 10/03/2012 12:00 AM THER/PROPH/DIAG INJ SC/IM Reviewed 10/03/2012 12:00 AM Toradol 60 Mg ND#0833-4256-01 Reviewed 10/03/2012 12:00 AM Phenergan, 25Mg [facility] [place] 2[place]#2966-2887-33 Reviewed 10/19/2012 12:00 AM N BLOCK INJ OCCIPITAL Reviewed 10/19/2012 12:00 AM Kenalog, Per 10 Mg [facility] [place] 2[place]#8976-2821-91 Reviewed 10/19/2012 12:00 AM Toradol 30 Mg [facility] [place] 2]#6594-4464-38 Reviewed 10/19/2012 12:00 AM THER/PROPH/DIAG INJ SC/IM Reviewed 10/31/2012 12:00 AM COMPLETE CBC W/AUTO DIFF WBC Returned 10/31/2012 12:00 AM COMPREHEN METABOLIC PANEL Returned 10/31/2012 12:00 AM LIPID PANEL Returned 11/03/2012 12:[address] THORAX W/O & W/DYE Returned 11/08/2012 12:00 AM N BLOCK INJ OCCIPITAL Reviewed 11/08/2012 12:00 AM Kenalog Pe-[address]-20 ANNA Reviewed 11/27/2012 12:00 AM COMPLETE CBC [...] AM Decadron, Per 1 Mg [facility] [place]# [address]-54 Reviewed 01/25/2013 12:00 AM Depo-Medrol, Per 80 Mg [facility] [place] 2]#7044-8600-39 Reviewed 01/26/2013 12:00 AM IMMUNOTHERAPY INJECTIONS Returned [...] AM Decadron, Per 1 Mg [facility] [place] 2[place]# [address]-84 Reviewed 05/16/2013 12:00 AM Depo-Medrol, Per 80 Mg [facility] [place] 2]#5150-9828-57 Reviewed 05/31/2013 12:00 AM IMMUNOTHERAPY INJECTIONS Reviewed 06/08/2013 12:00 AM IMMUNOTHERAPY INJECTIONS Reviewed 06/14/2013 12:00 AM IMMUNOTHERAPY INJECTIONS Reviewed 06/28/2013 12:00 AM IMMUNOTHERAPY INJECTIONS Reviewed 07/12/2013 12:00 AM X-RAY EXAM RIBS UNI 2 VIEWS Returned 07/18/2013 12:00 AM Toradol 60 Mg [facility] [place] 2]#8527-4670-89 Reviewed 07/18/2013 12:00 AM THER/PROPH/DIAG INJ SC/IM Reviewed 08/23/2013 12:00 AM COMPLETE CBC W/AUTO DIFF WBC Reviewed 08/23/2013 12:00 AM COMPREHEN METABOLIC PANEL Reviewed 08/23/2013 12:00 AM LIPID PANEL Reviewed 08/31/2013 12:00 AM X-RAY EXAM OF LOWER LEG Returned 09/04/2013 12:00 AM IMMUNOTHERAPY INJECTIONS Reviewed 09/14/2013 12:00 AM THER/PROPH/DIAG INJ SC/IM Reviewed 09/14/2013 12:00 AM Decadron, Per 1 Mg [facility] [place] 2[place]# [address]-91 Reviewed 09/14/2013 12:00 AM Depo-Medrol, Per 80 Mg [facility] [place] 2]#4450-2022-89 Reviewed 09/20/2013 12:00 AM IMMUNOTHERAPY INJECTIONS Reviewed [...] INJ OCCIPITAL Reviewed 12/10/2009 12:00 AM Kenalog Wq-[address]-20 ANNA Reviewed 12/16/2009 12:00 AM HIV-1ANTIBODY Reviewed 12/16/2009 12:00 AM COMPLETE CBC W/AUTO DIFF WBC Reviewed 12/16/2009 12:00 AM METABOLIC PANEL TOTAL CA Reviewed 12/16/2009 12:00 AM Type and screen Reviewed 12/16/2009 12:00 AM PROTHROMBIN TIME Reviewed 12/16/2009 12:00 AM THROMBOPLASTIN TIME PARTIAL Reviewed 03/18/2010 12:00 AM DRAIN/INJ JOINT/BURSA W/O US Reviewed 03/18/2010 12:00 AM Kenalog Rg-[address]-20 ANNA Reviewed 11/21/2013 12:00 AM RADEX HAND MINIMUM 3 VIEWS Returned 06/03/2010 12:00 AM INJ TRIGGER POINT 1/2 MUSCL Reviewed 06/03/2010 12:00 AM Kenalog per 10Mg [facility]#[address]-45(Niall) Reviewed 12/05/2013 12:00 AM COMPLETE CBC W/AUTO [...] 07/23/2010 12:00 AM Kenalog per 10Mg [facility] [place]-71(Niall) Reviewed 2014 12:00 AM COMPLETE CBC W/AUTO [...] INJ OCCIPITAL Reviewed 10/01/2010 12:00 AM Kenalog Wj-[address]-20 ANNA Reviewed 07/25/2014 12:00 AM THER/PROPH/DIAG INJ [...] 0.60 mg/dLCALCIUM 10.90 mg/ dLeGFR >60 mL/min/1.73 [id number] 45.0 U/L 08/31/2013 10:54 AM GLUCOSE 255.0 [...] 0.40 mg/ dLCALCIUM 10.60 mg/dLeGFR >60 mL/min/1.73 [id number] 369.0 mg/ dLCHOLESTEROL 153.0 mg/dLHDL 26.0 mg/dLLDL [...] BILI 0.30 mg/dLCALCIUM 10.0 mg/dLeGFR >60 mL/min/1.73 [id number] YELLOW APPEARANCE CLEAR SPEC GRAV 1.010 pH 5.5 PROTEIN NEGATIVE GLUCOSE NEGATIVE KETONE NEGATIVE BILIRUBIN NEGATIVE BLOOD NEGATIVE NITRITE NEGATIVE LEUK SCREEN NEGATIVE Est Avg Glucose 134.1 mg/dLMICROALBUMIN UR <0.5 MG/DL 02/13/2015 4:38 PM RMSF, IgG, EIA Negative Dejuan Con Spotted Fever,IgM 0.51 E. chaffeensis (HME) IgGTiter [...] 5.06 #MONO 0.79 #EOS 0.55 #BASO 0.04 History Of Immunizations Name Date Admin Mfg Name Mfg Code Trade Name Lot# Route Inj Vis Given Vis Pub CVX Influenza 03/30/2011 Not Entered NE Not Entered Not Entered Not Entered 03/31/2011 05/30/2015 141 Influenza 04/24/2014 sanofi pasteur PMC Fluzone [id number] Intramuscular Left Upper Arm 02/27/2014 01/15/2014 141 Influenza 02/13/2015 sanofi pasteur PMC Fluzone [id number] Intramuscular Left Deltoid 02/13/2015 01/03/2015 140 History [...] recurrence not specified May 20 2015 1:36PM Payers Insurance Name Company Name Plan Name Plan Number Policy Number Policy Group Number Start Date Medicare Part A Medicare Part A [id number] N/A [facility] Comm [id number] N/A [facility] [id number] May [facility] Plan of [place] [facility] Plan of [id number] Wednesday, 2012 Medicare Part B Medicare [facility] [id number] Monday, 2000 [place] [employer] [place] [employer] [id number] Tuesday, 2009 History of Encounters Visit Date Visit Type Provider 05/20/2015 Office visit Kaylynn Mendez HEAD [employer]OLF PROFESSIONAL 05/08/2015 Office visit Heena Dumont MD 05/06/2015 Office visit Kaylynn Mendez HEAD [employer]OL[employer] PROFESSIONAL 04/29/2015 Office visit Kaylynn Mendez HEAD [employer]OLF PROFESSIONAL 03/27/2015 Voided Brittni Yanez [employer]OL[employer] PROFESSIONAL 03/21/2015 Office visit Heena Dumont MD 03/12/2015 Office visit Kaylynn Mendez HEAD GOLF PROFESSIONAL 02/26/2015 Office visit Brittni Yanez HEAD GOLF PROFESSIONAL 02/13/2015 Office visit Heena Dumont MD 01/15/2015 Office visit Brittni Yanez HEAD GOLF PROFESSIONAL 01/13/2015 Office visit Heena Dumont MD 01/08/[address] Carol Fowler MD 01/01/2015 Office visit Brittni Yanez HEAD GOLF PROFESSIONAL 12/13/2014 Office visit Heena Dumont MD 11/27/2014 Office visit Kaylynn Mendez HEAD [employer]OLF PROFESSIONAL 11/14/2014 Office visit Heena Dumont MD 10/18/2014 Office visit Heena Dumont MD 10/17/2014 [facility] John Hoskins MD 10/09/2014 Office visit Heena Dumont MD 09/25/2014 Office visit Heena Dumont MD 09/17/2014 Office visit Kaylynn Mendez HEAD [employer]OL[employer] PROFESSIONAL 09/04/2014 Office visit Heena Dumont MD 08/28/2014 Office visit Kaylynn Mendez HEAD GOLF PROFESSIONAL 08/23/2014 [facility] John Hoskins MD 08/01/2014 Office visit Kaylynn Mendez HEAD GOLF PROFESSIONAL 07/29/2014 Office visit Heena Dumont MD 07/25/2014 Nurse visit Heena Dumont MD 07/17/2014 Office visit Kaylynn Mendez HEAD GOLF PROFESSIONAL 07/11/2014 Office visit Heena Dumont MD 07/01/2014 Office visit Heena Dumont MD 06/25/2014 Office visit Kaylynn Mendez HEAD GOLF PROFESSIONAL 06/12/2014 Office visit Kaylynn Mendez HEAD GOLF PROFESSIONAL 06/06/2014 Office visit Kaylynn Mendez HEAD [employer]OL[employer] PROFESSIONAL 05/27/2014 Office visit Heena Dumont MD 04/20/2014 Office visit Yesica Falcon HEAD GOLF PROFESSIONAL 03/29/2014 Office visit Na Jones HEAD [employer]OLF PROFESSIONAL 03/15/2014 Office visit Heena Dumont MD 2014 Office visit Heena Dumont MD 2014 [facility] John Hoskins MD 02/27/2014 Nurse visit Heena Dumont MD 02/13/2014 Office visit Lena El [employer]OL[employer] PROFESSIONAL 02/07/2014 Office visit Heena Dumont MD 02/03/2014 Office visit Na Jones HEAD GOLF PROFESSIONAL 01/30/2014 Office visit Kaylynn Mendez HEAD [employer]OL[employer] PROFESSIONAL 01/24/2014 Office visit Sundeep Russell [employer] PROFESSIONAL 01/16/2014 Office visit Kaylynn Walker HEAD [employer]OL[employer] PROFESSIONAL 01/10/2014 Nurse visit Kaylynn Walker HEAD GOLF PROFESSIONAL 01/08/2014 Office visit Kaylynn Walker HEAD GOLF PROFESSIONAL 12/05/2013 Office visit Kaylynn Walker HEAD GOLF PROFESSIONAL 11/21/2013 Office visit Kaylynn Walker HEAD GOLF PROFESSIONAL 10/23/2013 Office visit Brittni Yanez HEAD [employer]OLF PROFESSIONAL 10/17/2013 Nurse visit Heena Dumont MD 10/12/2013 Office visit Kaylynn Mendez [employer]OL[employer] PROFESSIONAL 10/02/2013 Office visit Heena Dumont MD 09/20/2013 Nurse visit Kaylynn Mendez HEAD [employer]OL[employer] PROFESSIONAL 09/20/2013 Voided Heena Dumont MD 09/14/2013 Office visit Kaylynn Walker [employer]OL[employer] PROFESSIONAL 09/05/2013 Office visit Sundeep Russell HEAD GOLF PROFESSIONAL 09/04/2013 Nurse visit Kaylynn Walker HEAD GOLF PROFESSIONAL 08/31/2013 Office visit Kaylynn Walker HEAD GOLF PROFESSIONAL 08/23/2013 Office visit Heena Dumont MD 08/10/2013 Office visit Kaylynn Walker HEAD [employer]OLF PROFESSIONAL 07/25/2013 Office visit Kaylynn Walker HEAD GOLF PROFESSIONAL 07/18/2013 Office visit Kaylynn Walker HEAD GOLF PROFESSIONAL 07/12/2013 Office visit Kaylynn Walker HEAD GOLF PROFESSIONAL 06/28/2013 Nurse visit Kaylynn Walker HEAD GOLF PROFESSIONAL 06/14/2013 Nurse visit Kaylynn Walker HEAD GOLF PROFESSIONAL 06/08/2013 Nurse visit Kaylynn Walker HEAD [employer]OL[employer] PROFESSIONAL 05/31/2013 Nurse visit Chadd Norris DO 05/18/2013 Office visit Terese Davidson MD 05/16/2013 Office visit Kaylynn Walker HEAD [employer]OL[employer] PROFESSIONAL 05/09/2013 Office visit Kaylynn Walker HEAD GOLF PROFESSIONAL 04/29/2013 [facility] John Hoskins MD 04/25/2013 Nurse visit Kaylynn Walker HEAD GOLF PROFESSIONAL 04/17/2013 Office visit Kaylynn Walker HEAD GOLF PROFESSIONAL 04/03/2013 Nurse visit Kaylynn Walker HEAD GOLF PROFESSIONAL 04/03/2013 Office visit Terese Davidson MD 03/28/2013 Office visit Sundeep Russell HEAD GOLF PROFESSIONAL 03/21/2013 Office visit Kaylynn Mendez HEAD [employer]OL[employer] PROFESSIONAL 03/20/2013 Office visit Terese Davidson MD 03/14/2013 Nurse visit Kaylynn Andrea HEAD [employer] PROFESSIONAL 03/05/2013 Nurse visit Kaylynn Walker HEAD [employer]OLF PROFESSIONAL 02/19/2013 Office visit Terese Davidson MD 02/16/2013 Nurse visit Kaylynn Walker HEAD [employer]OLF PROFESSIONAL 02/09/2013 Office visit Sundeep Russell HEAD GOLF PROFESSIONAL 02/08/2013 Nurse visit Kaylynn Walker HEAD GOLF PROFESSIONAL 02/01/2013 Nurse visit Kaylynn Walker HEAD [employer]OL[employer] PROFESSIONAL 01/26/2013 Nurse visit Sabrina Andrea COAT CHECKER 01/25/2013 Office visit Kaylynn Andrea HEAD [employer]OL[employer] PROFESSIONAL 01/22/2013 Office visit Yoan Castaneda MD 01/18/2013 Nurse visit Kaylynn Walker HEAD [employer]OL[employer] PROFESSIONAL 01/11/2013 Nurse visit Kaylynn Walker HEAD GOLF PROFESSIONAL 01/05/2013 Nurse visit Kaylynn Andrea HEAD GOLF PROFESSIONAL 12/29/2012 Office visit Kaylynn Andrea HEAD GOLF PROFESSIONAL 11/27/2012 Office visit Kaylynn Mendez HEAD [employer]OLF PROFESSIONAL 11/08/2012 Office visit Odell Tierney MD 11/08/2012 Voided Odell Tierney MD 11/07/2012 Office visit Kaylynn Mendez HEAD [employer]OLF PROFESSIONAL 10/31/2012 [facility] John Hoskins MD 10/31/2012 Office visit Kaylynn Mendez HEAD GOLF PROFESSIONAL 10/19/2012 Office visit Genoveva Ayala HEAD GOLF PROFESSIONAL 10/10/2012 Office visit Kaylynn Andrea HEAD GOLF PROFESSIONAL 10/03/2012 Office visit Kaylynn Walker HEAD GOLF PROFESSIONAL 09/26/2012 Office visit Kaylynn Andrea HEAD GOLF PROFESSIONAL 09/06/2012 Office visit Kaylynn Mendez HEAD [employer]OLF PROFESSIONAL 09/06/2012 Office visit Odell Tierney MD 08/31/2012 Voided Kaylynn Mendez HEAD [employer]OL[employer] PROFESSIONAL 07/28/2012 Office visit Kaylynn Mendez HEAD [employer]OL[employer] PROFESSIONAL 07/27/2012 Office visit David Joyner DO 07/20/2012 [facility] David Joyner DO 07/13/2012 Hospital David Joyner DO 07/11/2012 Office visit Kaylynn Mendez HEAD GOLF PROFESSIONAL 06/27/2012 [facility] Odell Tierney MD 06/21/2012 Office visit David Joyner DO 06/21/2012 Office visit Odell Tierney MD 06/20/2012 Office visit Brittni Yanez HEAD [employer]OLF PROFESSIONAL 06/06/2012 Office visit Odell Tierney MD 05/03/2012 Office visit Kaylynn Mendez HEAD [employer]OL[employer] PROFESSIONAL 04/28/2012 Office visit Brittni Huitron Beau HEAD [employer]OLF PROFESSIONAL 04/11/2012 Office visit Kaylynn Mendez HEAD GOLF PROFESSIONAL 04/06/2012 Hospital John Hoskins MD 03/30/2012 Office visit Kaylynn Mendez HEAD [employer]OL[employer] PROFESSIONAL 03/15/2012 Office visit Kaylynn Mendez HEAD [employer]OL[employer] PROFESSIONAL 03/15/2012 Office visit Odell Tierney MD 02/09/2012 Office visit Kaylynn Mendez HEAD [employer]OL[employer] PROFESSIONAL 12/23/2011 Office visit Kaylynn Walker [employer] PROFESSIONAL 11/02/2011 Office visit Kaylynn Mendez HEAD GOLF PROFESSIONAL 10/14/2011 Office visit Kaylynn Walker HEAD GOLF PROFESSIONAL 09/27/2011 Office visit Kaylynn Mendez HEAD GOLF PROFESSIONAL 08/19/2011 Hospital John Hoskins MD 08/18/2011 Hospital John Hoskins MD 08/18/2011 Office visit Kaylynn Mendez HEAD [employer]OL[employer] PROFESSIONAL 08/02/2011 Office visit Kaylynn Mendez HEAD [employer]OLF PROFESSIONAL 07/08/2011 Office visit Kaylynn Mendez HEAD [employer]OL[employer] PROFESSIONAL 07/05/2011 Office visit Odell Tierney MD 06/15/2011 Office visit Kaylynn Mendez HEAD [employer]OL[employer] PROFESSIONAL 05/14/2011 Office visit Kaylynn Mendez HEAD [employer]OL[employer] PROFESSIONAL 05/11/2011 Office visit Odell Tierney MD 04/28/2011 Office visit Kaylynn Mendez HEAD [employer]OL[employer] PROFESSIONAL 03/02/2011 Office visit Chadd Norris DO [...]
--- OUTSIDE RECORDS SUMMARY | 2018-05-10 02:36 | XMS REPORT ---
Author Author Heena Dumont Organization [facility] Address [address] [place], [place] [id number] Care Team Providers Care Card Hand Name Role Phone Heena Dumont PCP Allergies [...] SPASM OneTouch Delnatalio Lancets 33 gauge miscellaneous misc 08/21/2014 use [...] EVERY DAY hydrocodone-acetaminophen 7.5-325 mg oral tablet 07/30/2015 08/29/2015 take 1 tablet by oral route every [...] 08/27/2014 use as directed for 99 days [place] 5-325 mg oral tablet 06/17/2014 06/27/2014 take [...] a day as needed for 30 days pasebxqq-bahusddpg-LR 3.5-10,000-1 mg/mL-unit/mL-% otic drops,suspension 201401/08/2015 instill 4 [...] HC BMI BSA BMI Percentile O2 Sat(%) 07/30/2015 2:32:00 PM 126 mmHg 72 mmHg [...] Reviewed 04/28/2011 12:00 AM Decadron 1 mg NDC#[id number] (Jr) Reviewed 04/28/2011 12:00 AM Depo-Medrol 80 mg NDC#[id number]-Icvgznhb Reviewed 05/11/2011 12:00 AM N BLOCK INJ OCCIPITAL Reviewed 05/11/2011 12:00 AM Kenalog Vi-[address]-20 ANNA Reviewed 06/15/2011 12:00 AM COMPLETE CBC W/AUTO DIFF WBC Returned 06/15/2011 12:00 AM COMPREHEN METABOLIC PANEL Returned 07/08/2011 12:00 AM THER/PROPH/DIAG INJ SC/IM Reviewed 07/08/2011 12:00 AM Toradol,15mg NDC#[id number], Brunildaer Reviewed 07/08/2011 12:00 AM Phenergan 50 Mg Im Nd 2247-1885-04 [place]IE [place] Reviewed 08/02/2011 12:00 AM THER/PROPH/DIAG INJ SC/IM Reviewed 08/02/2011 12:00 AM Decadron 1 mg NDC#[id number] (Jr) Reviewed 08/02/2011 12:00 AM Depo-Medrol 80 mg NDC#[id number]-Weypgjfg Reviewed 09/27/2011 12:00 AM THER/PROPH/DIAG INJ SC/IM Reviewed 09/27/2011 12:00 AM Depo-Medrol 80 mg NDC#[id number]-Wfmgjlgx Reviewed 10/14/2011 12:00 AM X-RAY EXAM OF ABDOMEN Returned 10/14/2011 12:00 AM URINALYSIS AUTO W/O SCOPE Reviewed 12/23/2011 12:00 AM THER/PROPH/DIAG INJ SC/IM Reviewed 12/23/2011 12:00 AM Decadron 1 mg ND#97171237349 (Jr) Reviewed 12/23/2011 12:00 AM Depo-Medrol 80 mg NDC#[id number]-Thwkdvaa Reviewed 02/09/2012 12:00 AM THER/PROPH/DIAG INJ SC/IM Reviewed 02/09/2012 12:00 AM Decadron 1 mg NDC#[id number] (Jr) Reviewed 02/09/2012 12:00 AM Depo-Medrol 80 mg ND#[id number]-Olkurslm Reviewed 03/15/2012 12:00 AM N BLOCK INJ OCCIPITAL Reviewed 03/15/2012 12:00 AM Kenalog Eb-[address]-20 ANNA Reviewed 04/11/2012 12:00 AM COMPLETE CBC W/AUTO DIFF WBC Returned 04/11/2012 12:00 AM COMPREHEN METABOLIC PANEL Returned 04/11/2012 12:00 AM LIPID PANEL Returned 04/11/2012 12:00 AM ASSAY THYROID STIM HORMONE Returned 06/20/2012 12:00 AM THER/PROPH/DIAG INJ SC/IM Reviewed 06/20/2012 12:00 AM Decadron, Per 1 Mg ND# [address]-77 Reviewed 06/20/2012 12:00 AM Depo-Medrol, Per 80 Mg ND#4280-8696-50 Reviewed 09/06/2012 12:00 AM N BLOCK INJ OCCIPITAL Reviewed 09/06/2012 12:00 AM Kenalog Nx-[address]-20 ANNA Reviewed 09/06/2012 12:00 AM X-RAY EXAM RIBS UNI 2 VIEWS Returned 09/26/2012 12:00 AM THER/PROPH/DIAG INJ SC/IM Reviewed 09/26/2012 12:00 AM Decadron, Per 1 Mg ND# [address]-60 Reviewed 09/26/2012 12:00 AM Depo-Medrol, Per 80 Mg ND#3645-1913-13 Reviewed 10/03/2012 12:00 AM URINALYSIS AUTO W/O SCOPE Reviewed 10/03/2012 12:00 AM THER/PROPH/DIAG INJ SC/IM Reviewed 10/03/2012 12:00 AM Toradol 60 Mg ND#7201-8017-54 Reviewed 10/03/2012 12:00 AM Phenergan, 25Mg ND#9180-1936-58 Reviewed 10/19/2012 12:00 AM N BLOCK INJ OCCIPITAL Reviewed 10/19/2012 12:00 AM Kenalog, Per 10 Mg ND#2689-5612-67 Reviewed 10/19/2012 12:00 AM Toradol 30 Mg ND#4206-8297-97 Reviewed 10/19/2012 12:00 AM THER/PROPH/DIAG INJ SC/IM Reviewed 10/31/2012 12:00 AM COMPLETE CBC W/AUTO DIFF WBC Returned 10/31/2012 12:00 AM COMPREHEN METABOLIC PANEL Returned 10/31/2012 12:00 AM LIPID PANEL Returned 11/03/2012 12:[address] THORAX W/O & W/DYE Returned 11/08/2012 12:00 AM N BLOCK INJ OCCIPITAL Reviewed 11/08/2012 12:00 AM Kenalog Ha-[address]-20 ANNA Reviewed 11/27/2012 12:00 AM COMPLETE CBC [...] Decadron, Per 1 Mg [facility]# [address]-33 Reviewed 01/25/2013 12:00 AM Depo-Medrol, Per 80 Mg [facility]#4548-8529-86 Reviewed 01/26/2013 12:00 AM IMMUNOTHERAPY INJECTIONS Returned [...] Decadron, Per 1 Mg [facility]# [address]-54 Reviewed 05/16/2013 12:00 AM Depo-Medrol, Per 80 Mg [facility]#1515-2339-06 Reviewed 05/31/2013 12:00 AM IMMUNOTHERAPY INJECTIONS Reviewed 06/08/2013 12:00 AM IMMUNOTHERAPY INJECTIONS Reviewed 06/14/2013 12:00 AM IMMUNOTHERAPY INJECTIONS Reviewed 06/28/2013 12:00 AM IMMUNOTHERAPY INJECTIONS Reviewed 07/12/2013 12:00 AM X-RAY EXAM RIBS UNI 2 VIEWS Returned 07/18/2013 12:00 AM Toradol 60 Mg [facility]#3397-2555-20 Reviewed 07/18/2013 12:00 AM THER/PROPH/DIAG INJ SC/IM Reviewed 08/23/2013 12:00 AM COMPLETE CBC W/AUTO DIFF WBC Reviewed 08/23/2013 12:00 AM COMPREHEN METABOLIC PANEL Reviewed 08/23/2013 12:00 AM LIPID PANEL Reviewed 08/31/2013 12:00 AM X-RAY EXAM OF LOWER LEG Returned 09/04/2013 12:00 AM IMMUNOTHERAPY INJECTIONS Reviewed 09/14/2013 12:00 AM THER/PROPH/DIAG INJ SC/IM Reviewed 09/14/2013 12:00 AM Decadron, Per 1 Mg [facility]# [address]-93 Reviewed 09/14/2013 12:00 AM Depo-Medrol, Per 80 Mg [facility]#7812-9177-35 Reviewed 09/20/2013 12:00 AM IMMUNOTHERAPY INJECTIONS Reviewed [...] INJ OCCIPITAL Reviewed 12/10/2009 12:00 AM Kenalog Hq-[address]-20 ANNA Reviewed 12/16/2009 12:00 AM HIV-1ANTIBODY Reviewed 12/16/2009 12:00 AM COMPLETE CBC W/AUTO DIFF WBC Reviewed 12/16/2009 12:00 AM METABOLIC PANEL TOTAL CA Reviewed 12/16/2009 12:00 AM Type and screen Reviewed 12/16/2009 12:00 AM PROTHROMBIN TIME Reviewed 12/16/2009 12:00 AM THROMBOPLASTIN TIME PARTIAL Reviewed 03/18/2010 12:00 AM DRAIN/INJ JOINT/BURSA W/O US Reviewed 03/18/2010 12:00 AM Kenalog Op-[address]-20 ANNA Reviewed 11/21/2013 12:00 AM RADEX HAND MINIMUM 3 VIEWS Returned 06/03/2010 12:00 AM INJ TRIGGER POINT 1/2 MUSCL Reviewed 06/03/2010 12:00 AM Kenalog per 10Mg Im-Nd#[address]-48(Niall) Reviewed 12/05/2013 12:00 AM COMPLETE CBC W/AUTO [...] Reviewed 07/23/2010 12:00 AM Kenalog per 10Mg Im-Nd#[address]-57(Niall) Reviewed 2014 12:00 AM COMPLETE CBC W/AUTO [...] INJ OCCIPITAL Reviewed 10/01/2010 12:00 AM Quentin Me-[address]-20 ANNA Reviewed 07/25/2014 12:00 AM THER/PROPH/DIAG INJ [...] 0.60 mg/dLCALCIUM 10.90 mg/ dLeGFR >60 mL/min/1.73 [id number] 45.0 U/L 08/31/2013 10:54 AM GLUCOSE 255.0 [...] 0.40 mg/ dLCALCIUM 10.60 mg/dLeGFR >60 mL/min/1.73 [id number] 369.0 mg/ dLCHOLESTEROL 153.0 mg/dLHDL 26.0 mg/dLLDL [...] BILI 0.30 mg/dLCALCIUM 10.0 mg/dLeGFR >60 mL/min/1.73 [id number] YELLOW APPEARANCE CLEAR SPEC GRAV 1.010 pH 5.5 PROTEIN NEGATIVE GLUCOSE NEGATIVE KETONE NEGATIVE BILIRUBIN NEGATIVE BLOOD NEGATIVE NITRITE NEGATIVE LEUK SCREEN NEGATIVE HGB A1C 6.30 %Est Avg Glucose 134.1 mg/dLMICROALBUMIN UR <0.5 MG/DL 02/13/2015 4:38 PM RMSF, IgG, EIA [facility],IgM 0.51 E. chaffeensis ([facility]) IgGTiter [...] 0.05 AFP, Serum, Tumor Marker 2.40 ng/mL History Of Immunizations Name Date Admin Mfg Name Mfg Code Trade Name Lot# Route Inj Vis Given Vis Pub CVX Influenza 03/30/2011 Not Entered NE Not Entered Not Entered Not Entered 03/31/2011 05/30/2015 141 Influenza 04/24/2014 sanofi pasteur PMC Fluzone [id number] Intramuscular Left Upper Arm 02/27/2014 01/15/2014 141 Influenza 02/13/2015 sanofi pasteur PMC Fluzone [id number] Intramuscular Left Deltoid 02/13/2015 01/03/2015 140 Tdap 06/06/2015 GlaxoSmLocBox LabsKline SKB BOOSTRIX [id number] Intramuscular Left Deltoid 06/06/2015 [...] with liver dysfunction Hypertension Hyperlipidemia, unspecified Bronchitis Sep 2 2010 10:58AM Sinusitis, Acute Jan 29 2010 [...] 9:50AM Pelvic Pain Jul 28 2015 12:10PM Payers Insurance Name Company Name Plan Name Plan Number Policy Number Policy Group Number Start Date Medicare Part A Medicare Part A [id number] N/A [facility] RHC Comm [id number] N/A [place] [employer] - [employer] [place] [employer]g - C [id number] May [facility] Comm Plan of [id number] Wednesday, 2012 Medicare Part B Medicare Of [place] [id number] Monday, 2000 [place] [employer] [place] [employer] [id number] Tuesday, 2009 History of Encounters Visit Date Visit Type Provider 07/30/2015 Office visit Heena Dumont MD 07/15/2015 Office visit Kaylynn Mendez BLOOD BANK ASSISTANT 07/04/2015 Office visit Heena Dumont MD 06/06/2015 Office visit Heena Dumont MD 06/06/2015 Office visit Kaylynn Mendez BLOOD BANK ASSISTANT 06/02/2015 Office visit Kyalynn Mendez APRN 05/26/2015 Office visit Kaylynn Mendez APRN 05/20/2015 Office visit Kaylynn Mendez BLOOD BANK ASSISTANT 05/08/2015 Office visit Heena Dumont MD 05/06/2015 Office visit Kaylynn Mendez BLOOD BANK ASSISTANT 04/29/2015 Office visit Kaylynn Mendez BLOOD BANK ASSISTANT 03/27/2015 Voided Brittni Yanez BLOOD BANK ASSISTANT 03/21/2015 Office visit Heena Dumont MD 03/12/2015 Office visit Kaylynn Mendez BLOOD BANK ASSISTANT 02/26/2015 Office visit Brittni Yanez BLOOD BANK ASSISTANT 02/13/2015 Office visit Heena Dumont MD 01/15/2015 Office visit Brittni Yanez BLOOD BANK ASSISTANT 01/13/2015 Office visit Heena Dumont MD 01/08/[address] Carol Fowler MD 01/01/2015 Office visit Brittni Yanez BLOOD BANK ASSISTANT 12/13/2014 Office visit Heena Dumont MD 11/27/2014 Office visit Kaylynn Mendez BLOOD BANK ASSISTANT 11/14/2014 Office visit Heena Dumont MD 10/18/2014 Office visit Heena Dumont MD 10/17/2014 [facility] John Hoskins MD 10/09/2014 Office visit Heena Dumont MD 09/25/2014 Office visit Heena Dumont MD 09/17/2014 Office visit Kaylynn Mendez BLOOD BANK ASSISTANT 09/04/2014 Office visit Heena Dumont MD 08/28/2014 Office visit Kaylynn Mendez BLOOD BANK ASSISTANT 08/23/2014 [facility] John Hoskins MD 08/01/2014 Office visit Kaylynn Mendez BLOOD BANK ASSISTANT 07/29/2014 Office visit Heena Dumont MD 07/25/2014 Nurse visit Heena Dumont MD 07/17/2014 Office visit Kaylynn Mendez BLOOD BANK ASSISTANT 07/11/2014 Office visit Heena Dumont MD 07/01/2014 Office visit Heena Dumont MD 06/25/2014 Office visit Kaylynn Mendez BLOOD BANK ASSISTANT 06/12/2014 Office visit Kaylynn Mendez BLOOD BANK ASSISTANT 06/06/2014 Office visit Kaylynn Mendez BLOOD BANK ASSISTANT 05/27/2014 Office visit Heena Dumont MD 04/20/2014 Office visit Yesica Falcon BLOOD BANK ASSISTANT 03/29/2014 Office visit Na Jones BLOOD BANK ASSISTANT 03/15/2014 Office visit Heena Dumont MD 2014 Office visit Heena Dumont MD 2014 [facility] John Hoskins MD 02/27/2014 Nurse visit Heena Dumont MD 02/13/2014 Office visit Lena El BLOOD BANK ASSISTANT 02/07/2014 Office visit Heena Dumont MD 02/03/2014 Office visit Na Jones BLOOD BANK ASSISTANT 01/30/2014 Office visit Kaylynn Walker BLOOD BANK ASSISTANT 01/24/2014 Office visit Sundeep Russell BLOOD BANK ASSISTANT 01/16/2014 Office visit Kaylynn Walker BLOOD BANK ASSISTANT 01/10/2014 Nurse visit Kaylynn Walker BLOOD BANK ASSISTANT 01/08/2014 Office visit Kaylynn Walker BLOOD BANK ASSISTANT 12/05/2013 Office visit Kaylynn Walker BLOOD BANK ASSISTANT 11/21/2013 Office visit Kaylynn Walker BLOOD BANK ASSISTANT 10/23/2013 Office visit Brittni Yanez BLOOD BANK ASSISTANT 10/17/2013 Nurse visit Heena Dumont MD 10/12/2013 Office visit Kaylynn Walker BLOOD BANK ASSISTANT 10/02/2013 Office visit Heena Dumont MD 09/20/2013 Nurse visit Kaylynn Walker BLOOD BANK ASSISTANT 09/20/2013 Voided Heena Dumont MD 09/14/2013 Office visit Kaylynn Walker BLOOD BANK ASSISTANT 09/05/2013 Office visit Sundeep Russell BLOOD BANK ASSISTANT 09/04/2013 Nurse visit Kaylynn Walker BLOOD BANK ASSISTANT 08/31/2013 Office visit Kaylynn Walker BLOOD BANK ASSISTANT 08/23/2013 Office visit Heena Dumont MD 08/10/2013 Office visit Kaylynn Walker BLOOD BANK ASSISTANT 07/25/2013 Office visit Kaylynn Walker BLOOD BANK ASSISTANT 07/18/2013 Office visit Kaylynn Walker BLOOD BANK ASSISTANT 07/12/2013 Office visit Kaylynn Walker BLOOD BANK ASSISTANT 06/28/2013 Nurse visit Kaylynn Walker BLOOD BANK ASSISTANT 06/14/2013 Nurse visit Kaylynn Walker BLOOD BANK ASSISTANT 06/08/2013 Nurse visit Kaylynn Walker BLOOD BANK ASSISTANT 05/31/2013 Nurse visit Chadd Norris DO 05/18/2013 Office visit Terese Davidson MD 05/16/2013 Office visit Kaylynn Walker BLOOD BANK ASSISTANT 05/09/2013 Office visit Kaylynn Walker BLOOD BANK ASSISTANT 04/29/2013 [facility] John Hoskins MD 04/25/2013 Nurse visit Kaylynn Walker BLOOD BANK ASSISTANT 04/17/2013 Office visit Kaylynn Walker BLOOD BANK ASSISTANT 04/03/2013 Nurse visit Kaylynn Walker BLOOD BANK ASSISTANT 04/03/2013 Office visit Terese Davidson MD 03/28/2013 Office visit Sundeep Russell BLOOD BANK ASSISTANT 03/21/2013 Office visit Kaylynn Mendez BLOOD BANK ASSISTANT 03/20/2013 Office visit Terese Davidson MD 03/14/2013 Nurse visit Kaylynn Walker BLOOD BANK ASSISTANT 03/05/2013 Nurse visit Kaylynn Walker BLOOD BANK ASSISTANT 02/19/2013 Office visit Terese Davidson MD 02/16/2013 Nurse visit Kaylynn Mendez BLOOD BANK ASSISTANT 02/09/2013 Office visit Sundeep Russell BLOOD BANK ASSISTANT 02/08/2013 Nurse visit Kaylynn Walker BLOOD BANK ASSISTANT 02/01/2013 Nurse visit Kaylynn Walker BLOOD BANK ASSISTANT 01/26/2013 Nurse visit Sabrina Mendez [employer] 01/25/2013 Office visit Kaylynn Walker BLOOD BANK ASSISTANT 01/22/2013 Office visit Yoan Castaneda MD 01/18/2013 Nurse visit Kaylynn Walker BLOOD BANK ASSISTANT 01/11/2013 Nurse visit Kaylynn Walker BLOOD BANK ASSISTANT 01/05/2013 Nurse visit Kaylynn Walker BLOOD BANK ASSISTANT 12/29/2012 Office visit Kaylynn Walker BLOOD BANK ASSISTANT 11/27/2012 Office visit Kaylynn Mendez BLOOD BANK ASSISTANT 11/08/2012 Office visit Odell Tierney MD 11/08/2012 Voided Odell Tierney MD 11/07/2012 Office visit Kaylynn Mendez BLOOD BANK ASSISTANT 10/31/2012 [facility] John Hoskins MD 10/31/2012 Office visit Kaylynn Mendez BLOOD BANK ASSISTANT 10/19/2012 Office visit Genoveva Ayala BLOOD BANK ASSISTANT 10/10/2012 Office visit Kaylynn Mendez BLOOD BANK ASSISTANT 10/03/2012 Office visit Kaylynn Walker BLOOD BANK ASSISTANT 09/26/2012 Office visit Kaylynn Mendez BLOOD BANK ASSISTANT 09/06/2012 Office visit Kaylynn Mendez BLOOD BANK ASSISTANT 09/06/2012 Office visit Odell Tierney MD 08/31/2012 Voided Kaylynn Mendez BLOOD BANK ASSISTANT 07/28/2012 Office visit Kaylynn Mendez BLOOD BANK ASSISTANT 07/27/2012 Office visit David Joyner DO 07/20/2012 [facility] David Joyner DO 07/13/2012 [facility] DO 07/11/2012 Office visit Kaylynn Mendez BLOOD BANK ASSISTANT 06/27/2012 [facility] Odell Tierney MD 06/21/2012 Office visit David Joyner DO 06/21/2012 Office visit Odell Tierney MD 06/20/2012 Office visit Brittni Yanez BLOOD BANK ASSISTANT 06/06/2012 Office visit Odell Tierney MD 05/03/2012 Office visit Kaylynn Mendez BLOOD BANK ASSISTANT 04/28/2012 Office visit Brittni Yanez BLOOD BANK ASSISTANT 04/11/2012 Office visit Kaylynn Mendez BLOOD BANK ASSISTANT 04/06/2012 [facility] John Hoskins MD 03/30/2012 Office visit Kaylynn Mendez BLOOD BANK ASSISTANT 03/15/2012 Office visit Kaylynn Mendez BLOOD BANK ASSISTANT 03/15/2012 Office visit Odell Tierney MD 02/09/2012 Office visit Kaylynn Mendez BLOOD BANK ASSISTANT 12/23/2011 Office visit Kaylynn Mendez BLOOD BANK ASSISTANT 11/02/2011 Office visit Kaylynn Mendez BLOOD BANK ASSISTANT 10/14/2011 Office visit Kaylynn Mendez BLOOD BANK ASSISTANT 09/27/2011 Office visit Kaylynn Mendez BLOOD BANK ASSISTANT 08/19/2011 [facility] John Hoskins MD 08/18/2011 [facility] John Hoskins MD 08/18/2011 Office visit Kaylynn Mendez BLOOD BANK ASSISTANT 08/02/2011 Office visit Kaylynn Mendez BLOOD BANK ASSISTANT 07/08/2011 Office visit Kaylynn Mendez BLOOD BANK ASSISTANT 07/05/2011 Office visit Odell Tierney MD 06/15/2011 Office visit Kaylynn Mendez BLOOD BANK ASSISTANT 05/14/2011 Office visit Kaylynn Mendez BLOOD BANK ASSISTANT 05/11/2011 Office visit Odell Tierney MD 04/28/2011 Office visit Kaylynn Mendez BLOOD BANK ASSISTANT 03/02/2011 Office visit Chadd Norris DO 02/17/2011 [...]
--- OUTSIDE RECORDS SUMMARY | 2018-05-10 02:51 | XMS REPORT ---
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 Machine Name Role Phone Heena Dumont PCP Allergies and Adverse Reactions Name Reaction Notes Aspirin Methadone Ultram Vicodin Plan of Treatment Planned Activity Comments Planned Date Planned Time Plan/Goal FLU VAC NO PRSV 4 DANIEL 3 YRS+ 02/13/2015 12:00 AM ELECTROCARDIOGRAM COMPLETE 10/31/2012 12:00 AM [...] ORAL ROUTE BEFORE BED PRN MUSCLE SPASM Ambien CR 12.5 mg oral tablet,ext release multiphase 01/27/2015 02/26/2015 take 1 tablet (12.5 mg) by oral route once daily at bedtime for 30 days promethazine 25 mg oral tablet 01/27/2015 TAKE 1 TABLET BY MOUTH TWICE DAILY oxycodone 5 mg oral tablet 02/13/2015 03/15/2015 take 1 tablet by oral route every 12 hours for 30 days clobetasol-emollient 0.05 % topical cream 02/13/2015 02/27/2015 apply to affected area(s) by topical route daily for 14 days Name Start Date Expiration [...] 08/27/2014 use as directed for 99 days [place] 5-325 mg oral tablet 06/17/2014 06/27/2014 take [...] a day as needed for 30 days rrihahuh-gddvfuwlb-KF 3.5-10,000-1 mg/mL-unit/mL-% otic drops,suspension 201401/08/2015 instill 4 [...] 30 mL in 24 hours Tesrama Perles 100 mg oral capsule 04/30/2013 05/18/2013 [...] HC BMI BSA BMI Percentile O2 Sat(%) 02/13/2015 3:33:00 PM 120 mmHg 72 mmHg [...] Status 02/13/2015 12:00 AM IMMUNIZATION ADMIN Reviewed 04/28/2011 12:00 AM THER/PROPH/DIAG INJ SC/IM Reviewed 04/28/2011 12:00 AM Decadron 1 mg ND#[id number] (Jr) Reviewed 04/28/2011 12:00 AM Depo-Medrol 80 mg ND#[id number]-Apzccklq Reviewed 05/11/2011 12:00 AM N BLOCK INJ OCCIPITAL Reviewed 05/11/2011 12:00 AM Kenalog No-[address]-20 ANNA Reviewed 06/15/2011 12:00 AM COMPLETE CBC W/AUTO DIFF WBC Returned 06/15/2011 12:00 AM COMPREHEN METABOLIC PANEL Returned 07/08/2011 12:00 AM THER/PROPH/DIAG INJ SC/IM Reviewed 07/08/2011 12:00 AM Toradol,15mg ND#[id number], [place] Reviewed 07/08/2011 12:00 AM Phenergan 50 Mg Im Ndc 5112-8379-18 [place] Reviewed 08/02/2011 12:00 AM THER/PROPH/DIAG INJ SC/IM Reviewed 08/02/2011 12:00 AM Decadron 1 mg NDC#[id number] (Jr) Reviewed 08/02/2011 12:00 AM Depo-Medrol 80 mg NDC#[id number]-Nxbcpzxb Reviewed 09/27/2011 12:00 AM THER/PROPH/DIAG INJ SC/IM Reviewed 09/27/2011 12:00 AM Depo-Medrol 80 mg NDC#[id number]-Zquhzstp Reviewed 10/14/2011 12:00 AM X-RAY EXAM OF ABDOMEN Returned 10/14/2011 12:00 AM URINALYSIS AUTO W/O SCOPE Reviewed 12/23/2011 12:00 AM THER/PROPH/DIAG INJ SC/IM Reviewed 12/23/2011 12:00 AM Decadron 1 mg NDC#[id number] (Jr) Reviewed 12/23/2011 12:00 AM Depo-Medrol 80 mg NDC#[id number]-Rmkngbpa Reviewed 02/09/2012 12:00 AM THER/PROPH/DIAG INJ SC/IM Reviewed 02/09/2012 12:00 AM Decadron 1 mg NDC#[id number] (Jr) Reviewed 02/09/2012 12:00 AM Depo-Medrol 80 mg NDC#[id number]-Eunikzlo Reviewed 03/15/2012 12:00 AM N BLOCK INJ OCCIPITAL Reviewed 03/15/2012 12:00 AM Kenalog Yi-[address]-20 ANNA Reviewed 04/11/2012 12:00 AM COMPLETE CBC W/AUTO DIFF WBC Returned 04/11/2012 12:00 AM COMPREHEN METABOLIC PANEL Returned 04/11/2012 12:00 AM LIPID PANEL Returned 04/11/2012 12:00 AM ASSAY THYROID STIM HORMONE Returned 06/20/2012 12:00 AM THER/PROPH/DIAG INJ SC/IM Reviewed 06/20/2012 12:00 AM Decadron, Per 1 Mg ND# [address]-05 Reviewed 06/20/2012 12:00 AM Depo-Medrol, Per 80 Mg [facility]#2843-4517-85 Reviewed 09/06/2012 12:00 AM N BLOCK INJ OCCIPITAL Reviewed 09/06/2012 12:00 AM Kenalog Nq-[address]-20 ANNA Reviewed 09/06/2012 12:00 AM X-RAY EXAM RIBS UNI 2 VIEWS Returned 09/26/2012 12:00 AM THER/PROPH/DIAG INJ SC/IM Reviewed 09/26/2012 12:00 AM Decadron, Per 1 Mg [facility]# [address]-61 Reviewed 09/26/2012 12:00 AM Depo-Medrol, Per 80 Mg ND#1743-8231-66 Reviewed 10/03/2012 12:00 AM URINALYSIS AUTO W/O SCOPE Reviewed 10/03/2012 12:00 AM THER/PROPH/DIAG INJ SC/IM Reviewed 10/03/2012 12:00 AM Toradol 60 Mg [facility]#2422-7599-96 Reviewed 10/03/2012 12:00 AM Phenergan, 25Mg [facility]#4036-7594-77 Reviewed 10/19/2012 12:00 AM N BLOCK INJ OCCIPITAL Reviewed 10/19/2012 12:00 AM Kenalog, Per 10 Mg ND#9505-7852-16 Reviewed 10/19/2012 12:00 AM Toradol 30 Mg ND#9800-6658-43 Reviewed 10/19/2012 12:00 AM THER/PROPH/DIAG INJ SC/IM Reviewed 10/31/2012 12:00 AM COMPLETE CBC W/AUTO DIFF WBC Returned 10/31/2012 12:00 AM COMPREHEN METABOLIC PANEL Returned 10/31/2012 12:00 AM LIPID PANEL Returned 11/03/2012 12:[address] THORAX W/O & W/DYE Returned 11/08/2012 12:00 AM N BLOCK INJ OCCIPITAL Reviewed 11/08/2012 12:00 AM Kenalog Tg-[address]-20 ANNA Reviewed 11/27/2012 12:00 AM COMPLETE CBC [...] Per 1 Mg [facility]# [address]-36 Reviewed 01/25/2013 12:00 AM Depo-Medrol, Per 80 Mg [facility]#9712-2234-35 Reviewed 01/26/2013 12:00 AM IMMUNOTHERAPY INJECTIONS Returned [...] Per 1 Mg [facility]# [address]-34 Reviewed 05/16/2013 12:00 AM Depo-Medrol, Per 80 Mg [facility]#6030-3679-05 Reviewed 05/31/2013 12:00 AM IMMUNOTHERAPY INJECTIONS Reviewed 06/08/2013 12:00 AM IMMUNOTHERAPY INJECTIONS Reviewed 06/14/2013 12:00 AM IMMUNOTHERAPY INJECTIONS Reviewed 06/28/2013 12:00 AM IMMUNOTHERAPY INJECTIONS Reviewed 07/12/2013 12:00 AM X-RAY EXAM RIBS UNI 2 VIEWS Returned 07/18/2013 12:00 AM Toradol 60 Mg [facility]#5336-8756-05 Reviewed 07/18/2013 12:00 AM THER/PROPH/DIAG INJ SC/IM Reviewed 08/23/2013 12:00 AM COMPLETE CBC W/AUTO DIFF WBC Reviewed 08/23/2013 12:00 AM COMPREHEN METABOLIC PANEL Reviewed 08/23/2013 12:00 AM LIPID PANEL Reviewed 08/31/2013 12:00 AM X-RAY EXAM OF LOWER LEG Returned 09/04/2013 12:00 AM IMMUNOTHERAPY INJECTIONS Reviewed 09/14/2013 12:00 AM THER/PROPH/DIAG INJ SC/IM Reviewed 09/14/2013 12:00 AM Decadron, Per 1 Mg [facility]# [address]-56 Reviewed 09/14/2013 12:00 AM Depo-Medrol, Per 80 Mg [facility]#5656-6600-67 Reviewed 09/20/2013 12:00 AM IMMUNOTHERAPY INJECTIONS Reviewed [...] INJ OCCIPITAL Reviewed 12/10/2009 12:00 AM Quentin Qm-[address]-20 ANNA Reviewed 12/16/2009 12:00 AM HIV-1ANTIBODY Reviewed 12/16/2009 12:00 AM COMPLETE CBC W/AUTO DIFF WBC Reviewed 12/16/2009 12:00 AM METABOLIC PANEL TOTAL CA Reviewed 12/16/2009 12:00 AM Type and screen Reviewed 12/16/2009 12:00 AM PROTHROMBIN TIME Reviewed 12/16/2009 12:00 AM THROMBOPLASTIN TIME PARTIAL Reviewed 03/18/2010 12:00 AM DRAIN/INJ JOINT/BURSA W/O US Reviewed 03/18/2010 12:00 AM Quentin Vd-[address]-20 ANNA Reviewed 11/21/2013 12:00 AM RADEX HAND MINIMUM 3 VIEWS Returned 06/03/2010 12:00 AM INJ TRIGGER POINT 1/2 MUSCL Reviewed 06/03/2010 12:00 AM Kenalog per 10Mg Im-[facility]#[address]-03(Niall) Reviewed 12/05/2013 12:00 AM COMPLETE CBC W/AUTO [...] Reviewed 07/23/2010 12:00 AM Kenalog per 10Mg Im-Nd#[address]-50(Niall) Reviewed 2014 12:00 AM COMPLETE CBC W/AUTO [...] INJ OCCIPITAL Reviewed 10/01/2010 12:00 AM Kenalog Ae-[address]-20 ANNA Reviewed 07/25/2014 12:00 AM THER/PROPH/DIAG INJ [...] 0.60 mg/dLCALCIUM 10.90 mg/ dLeGFR >60 mL/min/1.73 [id number] 45.0 U/L 08/31/2013 10:54 AM GLUCOSE 255.0 [...] 0.40 mg/ dLCALCIUM 10.60 mg/dLeGFR >60 mL/min/1.73 [id number] 369.0 mg/ dLCHOLESTEROL 153.0 mg/dLHDL 26.0 mg/dLLDL [...] BILI 0.30 mg/dLCALCIUM 10.0 mg/dLeGFR >60 mL/min/1.73 [id number] YELLOW APPEARANCE CLEAR SPEC GRAV 1.010 pH [...] Not Entered 03/31/2011 05/30/2015 141 Influenza 04/24/2014 [facility] PMC Fluzone [id number] Intramuscular Left Upper Arm 02/27/2014 01/15/2014 141 [...] 3:43PM Flu Vaccine Feb 13 2015 4:28PM Payers Insurance Name Company Name Plan Name Plan Number Policy Number Policy Group Number Start Date Medicare Part A Medicare Part A [id number] N/A [facility] - Community Plan of [facility] RHC Comm [id number] N/A [place] [employer] [place] [employer]HC [id number] May [facility] Comm Plan of [id number] Wednesday, 2012 Medicare Part B Medicare [facility] [id number] Monday, 2000 [place] [facility] [id number] Tuesday, 2009 History of Encounters Visit Date Visit Type Provider 02/13/2015 Office visit Heena Dumont MD 01/15/2015 Office visit Brittni Yanez ANGIOGRAPHY TECHNOLOGIST 01/13/2015 Office visit Heena Dumont MD 01/08/[address] Carol Fowler MD 01/01/2015 Office visit Brittni Yanez ANGIOGRAPHY TECHNOLOGIST 12/13/2014 Office visit Heena Dumont MD 11/27/2014 Office visit Kaylynn Mendez ANGIOGRAPHY TECHNOLOGIST 11/14/2014 Office visit Heena Dumont MD 10/18/2014 Office visit Heena Dumont MD 10/17/2014 [facility] John Hoskins MD 10/09/2014 Office visit Heena Dumont MD 09/25/2014 Office visit Heena Dumont MD 09/17/2014 Office visit Kaylynn Mendez ANGIOGRAPHY TECHNOLOGIST 09/04/2014 Office visit Heena Dumont MD 08/28/2014 Office visit Kaylynn Mendez ANGIOGRAPHY TECHNOLOGIST 08/23/2014 [facility] John Hoskins MD 08/01/2014 Office visit Kaylynn Mendez ANGIOGRAPHY TECHNOLOGIST 07/29/2014 Office visit Heena Dumont MD 07/25/2014 Nurse visit Heena Dumont MD 07/17/2014 Office visit Kaylynn Mendez ANGIOGRAPHY TECHNOLOGIST 07/11/2014 Office visit Heena Dumont MD 07/01/2014 Office visit Heena Dumont MD 06/25/2014 Office visit Kaylynn Mendez ANGIOGRAPHY TECHNOLOGIST 06/12/2014 Office visit Kaylynn Mendez ANGIOGRAPHY TECHNOLOGIST 06/06/2014 Office visit Kaylynn Mendez ANGIOGRAPHY TECHNOLOGIST 05/27/2014 Office visit Heena Dumont MD 04/20/2014 Office visit Yesica Falcon ANGIOGRAPHY TECHNOLOGIST 03/29/2014 Office visit aN Jones ANGIOGRAPHY TECHNOLOGIST 03/15/2014 Office visit Heena Dumont MD 2014 Office visit Heena Dumont MD 2014 [facility] John Hoskins MD 02/27/2014 Nurse visit Heena Dumont MD 02/13/2014 Office visit Lena El ANGIOGRAPHY TECHNOLOGIST 02/07/2014 Office visit Heena Dumont MD 02/03/2014 Office visit Na Jones ANGIOGRAPHY TECHNOLOGIST 01/30/2014 Office visit Kaylynn Mendez ANGIOGRAPHY TECHNOLOGIST 01/24/2014 Office visit Sundeep Russell ANGIOGRAPHY TECHNOLOGIST 01/16/2014 Office visit Kaylynn Walker ANGIOGRAPHY TECHNOLOGIST 01/10/2014 Nurse visit Kaylynn Mendez ANGIOGRAPHY TECHNOLOGIST 01/08/2014 Office visit Kaylynn Walker ANGIOGRAPHY TECHNOLOGIST 12/05/2013 Office visit Kaylynn Walker ANGIOGRAPHY TECHNOLOGIST 11/21/2013 Office visit Kaylynn Walker ANGIOGRAPHY TECHNOLOGIST 10/23/2013 Office visit Brittni Yanez ANGIOGRAPHY TECHNOLOGIST 10/17/2013 Nurse visit Heena Dumont MD 10/12/2013 Office visit Kaylynn Mendez ANGIOGRAPHY TECHNOLOGIST 10/02/2013 Office visit Heena Dumont MD 09/20/2013 Nurse visit Kaylynn Mendez ANGIOGRAPHY TECHNOLOGIST 09/20/2013 Voided Heena Dumont MD 09/14/2013 Office visit Kaylynn Walker ANGIOGRAPHY TECHNOLOGIST 09/05/2013 Office visit Sundeep Russell ANGIOGRAPHY TECHNOLOGIST 09/04/2013 Nurse visit Kaylynn Mendez ANGIOGRAPHY TECHNOLOGIST 08/31/2013 Office visit Kaylynn Walker ANGIOGRAPHY TECHNOLOGIST 08/23/2013 Office visit Heena Dumont MD 08/10/2013 Office visit Kaylynn Mendez ANGIOGRAPHY TECHNOLOGIST 07/25/2013 Office visit Kaylynn Walker ANGIOGRAPHY TECHNOLOGIST 07/18/2013 Office visit Kaylynn Walker ANGIOGRAPHY TECHNOLOGIST 07/12/2013 Office visit Kaylynn Walker ANGIOGRAPHY TECHNOLOGIST 06/28/2013 Nurse visit Kaylynn Walker ANGIOGRAPHY TECHNOLOGIST 06/14/2013 Nurse visit Kaylynn Walker ANGIOGRAPHY TECHNOLOGIST 06/08/2013 Nurse visit Kaylynn Walker ANGIOGRAPHY TECHNOLOGIST 05/31/2013 Nurse visit Chadd Norris DO 05/18/2013 Office visit Terese Davidson MD 05/16/2013 Office visit Kaylynn Mendez ANGIOGRAPHY TECHNOLOGIST 05/09/2013 Office visit Kaylynn Walker ANGIOGRAPHY TECHNOLOGIST 04/29/2013 [facility] John Hoskins MD 04/25/2013 Nurse visit Kaylynn Walker ANGIOGRAPHY TECHNOLOGIST 04/17/2013 Office visit Kaylynn Walker ANGIOGRAPHY TECHNOLOGIST 04/03/2013 Nurse visit Kaylynn Mendez ANGIOGRAPHY TECHNOLOGIST 04/03/2013 Office visit Terese Davidson MD 03/28/2013 Office visit Sundeep Russell ANGIOGRAPHY TECHNOLOGIST 03/21/2013 Office visit Kaylynn Walker ANGIOGRAPHY TECHNOLOGIST 03/20/2013 Office visit Terese Davidson MD 03/14/2013 Nurse visit Kaylynn Walker ANGIOGRAPHY TECHNOLOGIST 03/05/2013 Nurse visit Kaylynn Andrea ANGIOGRAPHY TECHNOLOGIST 02/19/2013 Office visit Terese Davidson MD 02/16/2013 Nurse visit Kaylynn Andrea ANGIOGRAPHY TECHNOLOGIST 02/09/2013 Office visit Sundeep Russell ANGIOGRAPHY TECHNOLOGIST 02/08/2013 Nurse visit Kaylynn Andrea ANGIOGRAPHY TECHNOLOGIST 02/01/2013 Nurse visit Kaylynn Andrea ANGIOGRAPHY TECHNOLOGIST 01/26/2013 Nurse visit Sabrina Andrea SKIVER SOCK LININGS 01/25/2013 Office visit Kaylynn Mendez ANGIOGRAPHY TECHNOLOGIST 01/22/2013 Office visit Yoan Castaneda MD 01/18/2013 Nurse visit Kaylynn Andrea ANGIOGRAPHY TECHNOLOGIST 01/11/2013 Nurse visit Kaylynn Walker ANGIOGRAPHY TECHNOLOGIST 01/05/2013 Nurse visit Kaylnyn Andrea ANGIOGRAPHY TECHNOLOGIST 12/29/2012 Office visit Kaylynn Andrea ANGIOGRAPHY TECHNOLOGIST 11/27/2012 Office visit Kaylynn Mendez ANGIOGRAPHY TECHNOLOGIST 11/08/2012 Office visit Odell Tierney MD 11/08/2012 Voided Odell Tierney MD 11/07/2012 Office visit Kaylynn Mendez ANGIOGRAPHY TECHNOLOGIST 10/31/2012 [facility] John Hoskins MD 10/31/2012 Office visit Kaylynn Mendez ANGIOGRAPHY TECHNOLOGIST 10/19/2012 Office visit Genoveva Ayala ANGIOGRAPHY TECHNOLOGIST 10/10/2012 Office visit Kaylynn Mendez ANGIOGRAPHY TECHNOLOGIST 10/03/2012 Office visit Kaylynn Mendez ANGIOGRAPHY TECHNOLOGIST 09/26/2012 Office visit Kaylynn Mendez ANGIOGRAPHY TECHNOLOGIST 09/06/2012 Office visit Kaylynn Mendez ANGIOGRAPHY TECHNOLOGIST 09/06/2012 Office visit Odell Tierney MD 08/31/2012 Voided Kaylynn Mendez ANGIOGRAPHY TECHNOLOGIST 07/28/2012 Office visit Kaylynn Mendez ANGIOGRAPHY TECHNOLOGIST 07/27/2012 Office visit David Joyner DO 07/20/2012 [facility] David Joyner DO 07/13/2012 [facility] David Joyner DO 07/11/2012 Office visit Kaylynn Mendez ANGIOGRAPHY TECHNOLOGIST 06/27/2012 [facility] Odell Tierney MD 06/21/2012 Office visit David Joyner DO 06/21/2012 Office visit Odell Tierney MD 06/20/2012 Office visit Brittni Yanez ANGIOGRAPHY TECHNOLOGIST 06/06/2012 Office visit Odell Tierney MD 05/03/2012 Office visit Kaylynn Mendez ANGIOGRAPHY TECHNOLOGIST 04/28/2012 Office visit Brittni Yanez ANGIOGRAPHY TECHNOLOGIST 04/11/2012 Office visit Kaylynn Mendez ANGIOGRAPHY TECHNOLOGIST 04/06/2012 [facility] John Hoskins MD 03/30/2012 Office visit Kaylynn Mendez ANGIOGRAPHY TECHNOLOGIST 03/15/2012 Office visit Kaylynn Walker ANGIOGRAPHY TECHNOLOGIST 03/15/2012 Office visit Odell Tierney MD 02/09/2012 Office visit Kaylynn Walker ANGIOGRAPHY TECHNOLOGIST 12/23/2011 Office visit Kaylynn Walker ANGIOGRAPHY TECHNOLOGIST 11/02/2011 Office visit Kaylynn Walker ANGIOGRAPHY TECHNOLOGIST 10/14/2011 Office visit Kaylynn Walker ANGIOGRAPHY TECHNOLOGIST 09/27/2011 Office visit Kaylynn Walker ANGIOGRAPHY TECHNOLOGIST 08/19/2011 [facility] John Hoskins MD 08/18/2011 [facility] John Hoskins MD 08/18/2011 Office visit Kaylynn Mendez ANGIOGRAPHY TECHNOLOGIST 08/02/2011 Office visit Kaylynn Walker ANGIOGRAPHY TECHNOLOGIST 07/08/2011 Office visit Kaylynn Walker ANGIOGRAPHY TECHNOLOGIST 07/05/2011 Office visit Odell Tierney MD 06/15/2011 Office visit Kaylynn Walker ANGIOGRAPHY TECHNOLOGIST 05/14/2011 Office visit Kaylynn Mendez ANGIOGRAPHY TECHNOLOGIST 05/11/2011 Office visit Odell Tierney MD 04/28/2011 Office visit Kaylynn Mendez ANGIOGRAPHY TECHNOLOGIST 03/02/2011 Office visit Chadd Norris DO [...]
--- OUTSIDE RECORDS SUMMARY | 2018-05-10 03:04 | XMS REPORT ---
Author Pepe Hernández [facility] Address [address] [place], [place] [id number] Care Team Providers Care Translator And Interpreter Name Role Phone Pepe Figueroa PCP Allergies and Adverse Reactions Name Reaction [...] (120 mg) by oral route once daily omeprazole 20 mg oral [...] 08/27/2014 use as directed for 99 days [place] 5-325 mg oral tablet 06/17/2014 06/27/2014 take [...] a day as needed for 30 days wskwgpbj-zzljuujyj-MH 3.5-10,000-1 mg/mL-unit/mL-% otic drops,suspension 201401/08/2015 instill 4 [...] bedtime for 30 days per kaylynn increase bjornh lidocaine 5 % topical adhesive patch,medicated 03/15/2014 [...] HC BMI BSA BMI Percentile O2 Sat(%) 09/16/2015 10:49:00 AM 128 mmHg 74 mmHg [...] Reviewed 04/28/2011 12:00 AM Decadron 1 mg NDC#[id number] (Jr) Reviewed 04/28/2011 12:00 AM Depo-Medrol 80 mg NDC#[id number]-Aqboohaw Reviewed 09/02/2015 12:00 AM Toradol 60 Mg ND#3637-3173-10 Reviewed 09/02/2015 12:00 AM Phenergan, Up to 50 Mg RHC Medicaid Reviewed 05/11/2011 12:00 AM N BLOCK INJ OCCIPITAL Reviewed 05/11/2011 12:00 AM Kenalog Lu-[address]-20 ANNA Reviewed 06/15/2011 12:00 AM COMPLETE CBC W/AUTO DIFF WBC Returned 06/15/2011 12:00 AM COMPREHEN METABOLIC PANEL Returned 07/08/2011 12:00 AM THER/PROPH/DIAG INJ SC/IM Reviewed 07/08/2011 12:00 AM Toradol,15mg ND#[id number], Brunildaer Reviewed 07/08/2011 12:00 AM Phenergan 50 Mg Im [facility] 9129-8004-03 [place] Reviewed 08/02/2011 12:00 AM THER/PROPH/DIAG INJ SC/IM Reviewed 08/02/2011 12:00 AM Decadron 1 mg NDC#[id number] (Jr) Reviewed 08/02/2011 12:00 AM Depo-Medrol 80 mg NDC#[id number]-Lkhyoird Reviewed 09/27/2011 12:00 AM THER/PROPH/DIAG INJ SC/IM Reviewed 09/27/2011 12:00 AM Depo-Medrol 80 mg NDC#[id number]-Cnxsnfgy Reviewed 10/14/2011 12:00 AM X-RAY EXAM OF ABDOMEN Returned 10/14/2011 12:00 AM URINALYSIS AUTO W/O SCOPE Reviewed 12/23/2011 12:00 AM THER/PROPH/DIAG INJ SC/IM Reviewed 12/23/2011 12:00 AM Decadron 1 mg NDC#[id number] (Jr) Reviewed 12/23/2011 12:00 AM Depo-Medrol 80 mg NDC#[id number]-Hqtqswzv Reviewed 02/09/2012 12:00 AM THER/PROPH/DIAG INJ SC/IM Reviewed 02/09/2012 12:00 AM Decadron 1 mg NDC#[id number] (Jr) Reviewed 02/09/2012 12:00 AM Depo-Medrol 80 mg NDC#[id number]-Ppfbpubd Reviewed 03/15/2012 12:00 AM N BLOCK INJ OCCIPITAL Reviewed 03/15/2012 12:00 AM Kenalog Un-[address]-20 ANNA Reviewed 04/11/2012 12:00 AM COMPLETE CBC W/AUTO DIFF WBC Returned 04/11/2012 12:00 AM COMPREHEN METABOLIC PANEL Returned 04/11/2012 12:00 AM LIPID PANEL Returned 04/11/2012 12:00 AM ASSAY THYROID STIM HORMONE Returned 06/20/2012 12:00 AM THER/PROPH/DIAG INJ SC/IM Reviewed 06/20/2012 12:00 AM Decadron, Per 1 Mg NDC# [address]-53 Reviewed 06/20/2012 12:00 AM Depo-Medrol, Per 80 Mg NDC#2866-8510-89 Reviewed 09/06/2012 12:00 AM N BLOCK INJ OCCIPITAL Reviewed 09/06/2012 12:00 AM Kenalog Cc-[address]-20 ANNA Reviewed 09/06/2012 12:00 AM X-RAY EXAM RIBS UNI 2 VIEWS Returned 09/26/2012 12:00 AM THER/PROPH/DIAG INJ SC/IM Reviewed 09/26/2012 12:00 AM Decadron, Per 1 Mg NDC# [address]-86 Reviewed 09/26/2012 12:00 AM Depo-Medrol, Per 80 Mg NDC#3521-6238-45 Reviewed 10/03/2012 12:00 AM URINALYSIS AUTO W/O SCOPE Reviewed 10/03/2012 12:00 AM THER/PROPH/DIAG INJ SC/IM Reviewed 10/03/2012 12:00 AM Toradol 60 Mg [facility]#7039-7625-87 Reviewed 10/03/2012 12:00 AM Phenergan, 25Mg [facility]#8875-7757-80 Reviewed 10/19/2012 12:00 AM N BLOCK INJ OCCIPITAL Reviewed 10/19/2012 12:00 AM Kenalog, Per 10 Mg [facility]#0668-1898-48 Reviewed 10/19/2012 12:00 AM Toradol 30 Mg [facility]#7982-5877-88 Reviewed 10/19/2012 12:00 AM THER/PROPH/DIAG INJ SC/IM Reviewed 10/31/2012 12:00 AM COMPLETE CBC W/AUTO DIFF WBC Returned 10/31/2012 12:00 AM COMPREHEN METABOLIC PANEL Returned 10/31/2012 12:00 AM LIPID PANEL Returned 11/03/2012 12:[address] THORAX W/O & W/DYE Returned 11/08/2012 12:00 AM N BLOCK INJ OCCIPITAL Reviewed 11/08/2012 12:00 AM Kenalog Lg-[address]-20 ANNA Reviewed 11/27/2012 12:00 AM COMPLETE CBC [...] 1 Mg [facility]# [address]-49 Reviewed 01/25/2013 12:00 AM Depo-Medrol, Per 80 Mg [facility]#1012-7239-57 Reviewed 01/26/2013 12:00 AM IMMUNOTHERAPY INJECTIONS Returned [...] 1 Mg [facility]# [address]-66 Reviewed 05/16/2013 12:00 AM Depo-Medrol, Per 80 Mg [facility]#8360-0878-79 Reviewed 05/31/2013 12:00 AM IMMUNOTHERAPY INJECTIONS Reviewed 06/08/2013 12:00 AM IMMUNOTHERAPY INJECTIONS Reviewed 06/14/2013 12:00 AM IMMUNOTHERAPY INJECTIONS Reviewed 06/28/2013 12:00 AM IMMUNOTHERAPY INJECTIONS Reviewed 07/12/2013 12:00 AM X-RAY EXAM RIBS UNI 2 VIEWS Returned 07/18/2013 12:00 AM Toradol 60 Mg [facility]#4857-0537-65 Reviewed 07/18/2013 12:00 AM THER/PROPH/DIAG INJ SC/IM [...] 1 Mg [facility]# [address]-35 Reviewed 09/14/2013 12:00 AM Depo-Medrol, Per 80 Mg [facility]#5134-9897-55 Reviewed 09/20/2013 12:00 AM IMMUNOTHERAPY INJECTIONS Reviewed [...] INJ OCCIPITAL Reviewed 12/10/2009 12:00 AM Kenalog Ju-[address]-20 ANNA Reviewed 12/16/2009 12:00 AM HIV-1ANTIBODY Reviewed 12/16/2009 12:00 AM COMPLETE CBC W/AUTO DIFF WBC Reviewed 12/16/2009 12:00 AM METABOLIC PANEL TOTAL CA Reviewed 12/16/2009 12:00 AM Type and screen Reviewed 12/16/2009 12:00 AM PROTHROMBIN TIME Reviewed 12/16/2009 12:00 AM THROMBOPLASTIN TIME PARTIAL Reviewed 03/18/2010 12:00 AM DRAIN/INJ JOINT/BURSA W/O US Reviewed 03/18/2010 12:00 AM Kenalog Hb-[address]-20 ANNA Reviewed 11/21/2013 12:00 AM RADEX HAND MINIMUM 3 VIEWS Returned 06/03/2010 12:00 AM INJ TRIGGER POINT 1/2 MUSCL Reviewed 06/03/2010 12:00 AM Kenalog per 10Mg Im-[facility]#[address]-32(Niall) Reviewed 12/05/2013 12:00 AM COMPLETE CBC W/AUTO [...] Kenalog per 10Mg Im-[facility]#[address]-41(Niall) Reviewed 2014 12:00 AM COMPLETE CBC W/AUTO [...] INJ OCCIPITAL Reviewed 10/01/2010 12:00 AM Kenalog Ww-[address]-20 ANNA Reviewed 07/25/2014 12:00 AM THER/PROPH/DIAG INJ [...] 0.60 mg/dLCALCIUM 10.90 mg/ dLeGFR >60 mL/min/1.73 [id number] 45.0 U/L 08/31/2013 10:54 AM GLUCOSE 255.0 [...] 0.40 mg/ dLCALCIUM 10.60 mg/dLeGFR >60 mL/min/1.73 [id number] 369.0 mg/ dLCHOLESTEROL 153.0 mg/dLHDL 26.0 mg/dLLDL [...] BILI 0.30 mg/dLCALCIUM 10.0 mg/dLeGFR >60 mL/min/1.73 [id number] YELLOW APPEARANCE CLEAR SPEC GRAV 1.010 pH 5.5 PROTEIN NEGATIVE GLUCOSE NEGATIVE KETONE NEGATIVE BILIRUBIN NEGATIVE BLOOD NEGATIVE NITRITE NEGATIVE LEUK SCREEN NEGATIVE HGB A1C 6.30 %Est Avg Glucose 134.1 mg/dLMICROALBUMIN UR <0.5 MG/DL 02/13/2015 4:38 PM RMSF, IgG, EIA Negative Dejuan Nhn Spotted Fever,IgM 0.51 E. chaffeensis (HME) IgGTiter [...] 141 Influenza 04/24/2014 sanofi pasteur PMC Fluzone [id number] Intramuscular Left Upper Arm 02/27/2014 01/15/2014 141 Influenza 02/13/2015 sanofi pasteur PMC Fluzone [id number] Intramuscular Left Deltoid 02/13/2015 01/03/2015 140 Tdap [...] 10:53AM Osteogenesis imperfecta Sep 16 2015 10:53AM Payers Insurance Name Company Name Plan Name Plan Number Policy Number Policy Group Number Start Date Medicare Part A Medicare [facility] [id number] N/A [facility] Comm [id number] N/A Medicare Part A Medicare - Lab/Xray [id number] N/A Medicare Part B Medicare Of [place] [id number] Monday, February 28, 2000 [place] [employer] [place] [employer] [id number] Tuesday, November 10, 2009 Medicare Part A Medicare Part A [id number] N/A [place] [employer] [place] [employer] [id number] May [facility] Plan of [id number] Wednesday, May 30, 2012 History of Encounters Visit Date Visit Type Provider 09/16/[address] Pepe Figueroa MD 09/02/2015 Office visit Kaylynn Mendez PILE DRIVING SETTER 09/01/2015 Office visit Kaylynn Mendez PILE DRIVING SETTER 07/30/2015 Office visit Heena Dumont MD 07/15/2015 Office visit Kaylynn Mendez PILE DRIVING SETTER 07/04/2015 Office visit Heena Dumont MD 06/06/2015 Office visit Heena Dumont MD 06/06/2015 Office visit Kaylynn Mendez PILE DRIVING SETTER 06/02/2015 Office visit Kaylynn Mendez PILE DRIVING SETTER 05/26/2015 Office visit Kaylynn Mendez PILE DRIVING SETTER 05/20/2015 Office visit Kaylynn Mendez PILE DRIVING SETTER 05/08/2015 Office visit Heena Dumont MD 05/06/2015 Office visit Kaylynn Mendez PILE DRIVING SETTER 04/29/2015 Office visit Kaylynn Mendez PILE DRIVING SETTER 03/27/2015 Voided Brittni Yanez PILE DRIVING SETTER 03/21/2015 Office visit Heena Dumont MD 03/12/2015 Office visit Kaylynn Mendez PILE DRIVING SETTER 02/26/2015 Office visit Brittni Yanez PILE DRIVING SETTER 02/13/2015 Office visit Heena Dumont MD 01/15/2015 Office visit Brittni Yanez PILE DRIVING SETTER 01/13/2015 Office visit Heena Dumont MD 01/08/[address] Carol Fowler MD 01/01/2015 Office visit Brittni Yanez PILE DRIVING SETTER 12/13/2014 Office visit Heena Dumont MD 11/27/2014 Office visit Kaylynn Mendez PILE DRIVING SETTER 11/14/2014 Office visit Heena Dumont MD 10/18/2014 Office visit Heena Dumont MD 10/17/2014 [facility] Eliseo Hoskins MD 10/09/2014 Office visit Heena Dumont MD 09/25/2014 Office visit Heena Dumont MD 09/17/2014 Office visit Kaylynn Mendez PILE DRIVING SETTER 09/04/2014 Office visit Heena Dumont MD 08/28/2014 Office visit Kaylynn Mendez PILE DRIVING SETTER 08/23/2014 [facility] John Hoskins MD 08/01/2014 Office visit Kaylynn Mendez PILE DRIVING SETTER 07/29/2014 Office visit Heena Dumont MD 07/25/2014 Nurse visit Heena Dumont MD 07/17/2014 Office visit Kaylynn Mendez PILE DRIVING SETTER 07/11/2014 Office visit Heena Dumont MD 07/01/2014 Office visit Heena Dumont MD 06/25/2014 Office visit Kaylynn Mendez PILE DRIVING SETTER 06/12/2014 Office visit Kaylynn Mendez PILE DRIVING SETTER 06/06/2014 Office visit Kaylynn Mendez PILE DRIVING SETTER 05/27/2014 Office visit Heena Dumont MD 04/20/2014 Office visit Yesica Falcon PILE DRIVING SETTER 03/29/2014 Office visit Na Jones PILE DRIVING SETTER 03/15/2014 Office visit Heena Dumont MD 2014 Office visit Heena Dumont MD 2014 [facility] John Hoskins MD 02/27/2014 Nurse visit Heena Dumont MD 02/13/2014 Office visit Lena El PILE DRIVING SETTER 02/07/2014 Office visit Heena Dumont MD 02/03/2014 Office visit Na Jones PILE DRIVING SETTER 01/30/2014 Office visit Kaylynn Mendez PILE DRIVING SETTER 01/24/2014 Office visit Sundeep Russell PILE DRIVING SETTER 01/16/2014 Office visit Kaylynn Mendez PILE DRIVING SETTER 01/10/2014 Nurse visit Kaylynn Mendez PILE DRIVING SETTER 01/08/2014 Office visit Kaylynn Mendez PILE DRIVING SETTER 12/05/2013 Office visit Kaylynn Mendez PILE DRIVING SETTER 11/21/2013 Office visit Kaylynn Mendez PILE DRIVING SETTER 10/23/2013 Office visit Brittni Yanez PILE DRIVING SETTER 10/17/2013 Nurse visit Heena Dumont MD 10/12/2013 Office visit Kayylnn Mendez PILE DRIVING SETTER 10/02/2013 Office visit Heena Dumont MD 09/20/2013 Nurse visit Kaylynn Mendez PILE DRIVING SETTER 09/20/2013 Voided Heena Dumont MD 09/14/2013 Office visit Kaylynn Mendez PILE DRIVING SETTER 09/05/2013 Office visit Sundeep uRssell PILE DRIVING SETTER 09/04/2013 Nurse visit Kaylynn Mendez PILE DRIVING SETTER 08/31/2013 Office visit Kaylynn Mendez PILE DRIVING SETTER 08/23/2013 Office visit Heena Dumont MD 08/10/2013 Office visit Kaylynn Walker PILE DRIVING SETTER 07/25/2013 Office visit Kaylynn Walker PILE DRIVING SETTER 07/18/2013 Office visit Kaylynn Walker PILE DRIVING SETTER 07/12/2013 Office visit Kaylynn Walker PILE DRIVING SETTER 06/28/2013 Nurse visit Kaylynn Walker PILE DRIVING SETTER 06/14/2013 Nurse visit Kaylynn Walker PILE DRIVING SETTER 06/08/2013 Nurse visit Kaylynn Walker PILE DRIVING SETTER 05/31/2013 Nurse visit Chadd Norris DO 05/18/2013 Office visit Terese Davidson MD 05/16/2013 Office visit Kaylynn Walker PILE DRIVING SETTER 05/09/2013 Office visit Kaylynn Walker PILE DRIVING SETTER 04/29/2013 [facility] John Hoskins MD 04/25/2013 Nurse visit Kaylynn Walker PILE DRIVING SETTER 04/17/2013 Office visit Kaylynn Walker PILE DRIVING SETTER 04/03/2013 Nurse visit Kaylynn Walker PILE DRIVING SETTER 04/03/2013 Office visit Terese Davidson MD 03/28/2013 Office visit Sundeep Russell PILE DRIVING SETTER 03/21/2013 Office visit Kaylynn Mendez PILE DRIVING SETTER 03/20/2013 Office visit Terese Davidson MD 03/14/2013 Nurse visit Kaylynn Walker PILE DRIVING SETTER 03/05/2013 Nurse visit Kaylynn Walker PILE DRIVING SETTER 02/19/2013 Office visit Terese Davidson MD 02/16/2013 Nurse visit Kaylynn Walker PILE DRIVING SETTER 02/09/2013 Office visit Sundeep Russell PILE DRIVING SETTER 02/08/2013 Nurse visit Kaylynn Walker PILE DRIVING SETTER 02/01/2013 Nurse visit Kaylynn Walker PILE DRIVING SETTER 01/26/2013 Nurse visit Sabrina Mendez SCIENTIFIC AIDE 01/25/2013 Office visit Kaylynn Walker PILE DRIVING SETTER 01/22/2013 Office visit Yoan Castaneda MD 01/18/2013 Nurse visit Kaylynn Walker PILE DRIVING SETTER 01/11/2013 Nurse visit Kaylynn Walker PILE DRIVING SETTER 01/05/2013 Nurse visit Kaylynn Walker PILE DRIVING SETTER 12/29/2012 Office visit Kaylynn Walker PILE DRIVING SETTER 11/27/2012 Office visit Kaylynn Walker PILE DRIVING SETTER 11/08/2012 Office visit Odell Tierney MD 11/08/2012 Voided Odell Tierney MD 11/07/2012 Office visit Kaylynn Mendez PILE DRIVING SETTER 10/31/2012 [facility] John Hoskins MD 10/31/2012 Office visit Kaylynn Walker PILE DRIVING SETTER 10/19/2012 Office visit Genoveva Ayala PILE DRIVING SETTER 10/10/2012 Office visit Kaylynn Walker PILE DRIVING SETTER 10/03/2012 Office visit Kaylynn Walker PILE DRIVING SETTER 09/26/2012 Office visit Kaylynn Walker PILE DRIVING SETTER 09/06/2012 Office visit Kaylynn Mendez PILE DRIVING SETTER 09/06/2012 Office visit Odell Tierney MD 08/31/2012 Voided Kaylynn Mendez PILE DRIVING SETTER 07/28/2012 Office visit Kaylynn Mendez PILE DRIVING SETTER 07/27/2012 Office visit David Ar DO 07/20/2012 Hospital David Joyner DO 07/13/2012 [facility] David Ar DO 07/11/2012 Office visit Kaylynn Mendez PILE DRIVING SETTER 06/27/2012 [facility] Odell Tierney MD 06/21/2012 Office visit David Joyner DO 06/21/2012 Office visit Odell Tierney MD 06/20/2012 Office visit Brittni Yanez PILE DRIVING SETTER 06/06/2012 Office visit Odell Tierney MD 05/03/2012 Office visit Kaylynn Mendez PILE DRIVING SETTER 04/28/2012 Office visit Brittni Yanez PILE DRIVING SETTER 04/11/2012 Office visit Kaylynn Mendez PILE DRIVING SETTER 04/06/2012 [facility] John Hoskins MD 03/30/2012 Office visit Kaylynn Mendez PILE DRIVING SETTER 03/15/2012 Office visit Kaylynn Mendez PILE DRIVING SETTER 03/15/2012 Office visit Odell Tierney MD 02/09/2012 Office visit Kaylynn Mendez PILE DRIVING SETTER 12/23/2011 Office visit Kaylynn Mendez PILE DRIVING SETTER 11/02/2011 Office visit Kaylynn Mendez PILE DRIVING SETTER 10/14/2011 Office visit Kaylynn Mendez PILE DRIVING SETTER 09/27/2011 Office visit Kaylynn Mendez PILE DRIVING SETTER 08/19/2011 [facility] John Hoskins MD 08/18/2011 [facility] John Hoskins MD 08/18/2011 Office visit Kaylynn Mendez PILE DRIVING SETTER 08/02/2011 Office visit Kaylynn Mendez PILE DRIVING SETTER 07/08/2011 Office visit Kaylynn Mendez PILE DRIVING SETTER 07/05/2011 Office visit Odell Tierney MD 06/15/2011 Office visit Kaylynn Mendez PILE DRIVING SETTER 05/14/2011 Office visit Kaylynn Mendez PILE DRIVING SETTER 05/11/2011 Office visit Odell Tierney MD 04/28/2011 Office visit Kaylynn Mendez PILE DRIVING SETTER 03/02/2011 Office visit Chadd Norris DO [...]
--- OUTSIDE RECORDS SUMMARY | 2018-05-10 03:24 | XMS REPORT ---
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 Name Role Phone Heena Dumont PCP Allergies [...] 08/27/2014 use as directed for 99 days Hale 5-325 mg oral tablet 06/17/2014 06/27/2014 take [...] a day as needed for 30 days [id number]-[id number]-DQ 3.5-10,000-1 mg/mL-unit/mL-% otic drops,suspension 201401/08/2015 instill 4 [...] PRSRV FREE 3 YRS PLUS IM Reviewed 04/28/2011 12:00 AM THER/PROPH/DIAG INJ SC/IM Reviewed 04/28/2011 12:00 AM Decadron 1 mg ND#[id number] (Jr) Reviewed 04/28/2011 12:00 AM Depo-Medrol 80 mg ND#[id number]-Nvrbpaoz Reviewed 05/11/2011 12:00 AM N BLOCK INJ OCCIPITAL Reviewed 05/11/2011 12:00 AM Kenalog Tv-[address]-20 ANNA Reviewed 06/15/2011 12:00 AM COMPLETE CBC W/AUTO DIFF WBC Returned 06/15/2011 12:00 AM COMPREHEN METABOLIC PANEL Returned 07/08/2011 12:00 AM THER/PROPH/DIAG INJ SC/IM Reviewed 07/08/2011 12:00 AM Toradol,15mg ND#[id number], [place] Reviewed 07/08/2011 12:00 AM Phenergan 50 Mg Im Ndc 7129-1207-59 [place] Reviewed 08/02/2011 12:00 AM THER/PROPH/DIAG INJ SC/IM Reviewed 08/02/2011 12:00 AM Decadron 1 mg NDC#[id number] (Jr) Reviewed 08/02/2011 12:00 AM Depo-Medrol 80 mg NDC#[id number]-Nvulwufy Reviewed 09/27/2011 12:00 AM THER/PROPH/DIAG INJ SC/IM Reviewed 09/27/2011 12:00 AM Depo-Medrol 80 mg NDC#[id number]-Vwdjklem Reviewed 10/14/2011 12:00 AM X-RAY EXAM OF ABDOMEN Returned 10/14/2011 12:00 AM URINALYSIS AUTO W/O SCOPE Reviewed 12/23/2011 12:00 AM THER/PROPH/DIAG INJ SC/IM Reviewed 12/23/2011 12:00 AM Decadron 1 mg NDC#[id number] (Jr) Reviewed 12/23/2011 12:00 AM Depo-Medrol 80 mg NDC#[id number]-Vvivmnfg Reviewed 02/09/2012 12:00 AM THER/PROPH/DIAG INJ SC/IM Reviewed 02/09/2012 12:00 AM Decadron 1 mg NDC#[id number] (Jr) Reviewed 02/09/2012 12:00 AM Depo-Medrol 80 mg NDC#[id number]-Eklcyvew Reviewed 03/15/2012 12:00 AM N BLOCK INJ OCCIPITAL Reviewed 03/15/2012 12:00 AM Kenalog Ny-[address]-20 ANNA Reviewed 04/11/2012 12:00 AM COMPLETE CBC W/AUTO DIFF WBC Returned 04/11/2012 12:00 AM COMPREHEN METABOLIC PANEL Returned 04/11/2012 12:00 AM LIPID PANEL Returned 04/11/2012 12:00 AM ASSAY THYROID STIM HORMONE Returned 06/20/2012 12:00 AM THER/PROPH/DIAG INJ SC/IM Reviewed 06/20/2012 12:00 AM Decadron, Per 1 Mg ND# [address]-73 Reviewed 06/20/2012 12:00 AM Depo-Medrol, Per 80 Mg ND#6508-8167-65 Reviewed 09/06/2012 12:00 AM N BLOCK INJ OCCIPITAL Reviewed 09/06/2012 12:00 AM Kenalog Qa-[address]-20 ANNA Reviewed 09/06/2012 12:00 AM X-RAY EXAM RIBS UNI 2 VIEWS Returned 09/26/2012 12:00 AM THER/PROPH/DIAG INJ SC/IM Reviewed 09/26/2012 12:00 AM Decadron, Per 1 Mg [facility]# [address]-49 Reviewed 09/26/2012 12:00 AM Depo-Medrol, Per 80 Mg [facility]#0966-9675-35 Reviewed 10/03/2012 12:00 AM URINALYSIS AUTO W/O SCOPE Reviewed 10/03/2012 12:00 AM THER/PROPH/DIAG INJ SC/IM Reviewed 10/03/2012 12:00 AM Toradol 60 Mg [facility]#6101-4888-65 Reviewed 10/03/2012 12:00 AM Phenergan, 25Mg [facility]#2060-9734-37 Reviewed 10/19/2012 12:00 AM N BLOCK INJ OCCIPITAL Reviewed 10/19/2012 12:00 AM Kenalog, Per 10 Mg [facility]#1258-5683-18 Reviewed 10/19/2012 12:00 AM Toradol 30 Mg [facility]#8508-0986-09 Reviewed 10/19/2012 12:00 AM THER/PROPH/DIAG INJ SC/IM Reviewed 10/31/2012 12:00 AM COMPLETE CBC W/AUTO DIFF WBC Returned 10/31/2012 12:00 AM COMPREHEN METABOLIC PANEL Returned 10/31/2012 12:00 AM LIPID PANEL Returned 11/03/2012 12:[address] THORAX W/O & W/DYE Returned 11/08/2012 12:00 AM N BLOCK INJ OCCIPITAL Reviewed 11/08/2012 12:00 AM Kenalog Nh-[address]-20 ANNA Reviewed 11/27/2012 12:00 AM COMPLETE CBC [...] Per 1 Mg [facility]# [address]-84 Reviewed 01/25/2013 12:00 AM Depo-Medrol, Per 80 Mg [facility]#8168-1019-29 Reviewed 01/26/2013 12:00 AM IMMUNOTHERAPY INJECTIONS Returned [...] Per 1 Mg [facility]# [address]-27 Reviewed 05/16/2013 12:00 AM Depo-Medrol, Per 80 Mg [facility]#8024-6936-18 Reviewed 05/31/2013 12:00 AM IMMUNOTHERAPY INJECTIONS Reviewed 06/08/2013 12:00 AM IMMUNOTHERAPY INJECTIONS Reviewed 06/14/2013 12:00 AM IMMUNOTHERAPY INJECTIONS Reviewed 06/28/2013 12:00 AM IMMUNOTHERAPY INJECTIONS Reviewed 07/12/2013 12:00 AM X-RAY EXAM RIBS UNI 2 VIEWS Returned 07/18/2013 12:00 AM Toradol 60 Mg [facility]#4316-2405-46 Reviewed 07/18/2013 12:00 AM THER/PROPH/DIAG INJ SC/IM Reviewed 08/23/2013 12:00 AM COMPLETE CBC W/AUTO DIFF WBC Reviewed 08/23/2013 12:00 AM COMPREHEN METABOLIC PANEL Reviewed 08/23/2013 12:00 AM LIPID PANEL Reviewed 08/31/2013 12:00 AM X-RAY EXAM OF LOWER LEG Returned 09/04/2013 12:00 AM IMMUNOTHERAPY INJECTIONS Reviewed 09/14/2013 12:00 AM THER/PROPH/DIAG INJ SC/IM Reviewed 09/14/2013 12:00 AM Decadron, Per 1 Mg [facility]# [address]-94 Reviewed 09/14/2013 12:00 AM Depo-Medrol, Per 80 Mg [facility]#0851-7290-55 Reviewed 09/20/2013 12:00 AM IMMUNOTHERAPY INJECTIONS Reviewed [...] INJ OCCIPITAL Reviewed 12/10/2009 12:00 AM Quentin Vl-[address]-20 ANNA Reviewed 12/16/2009 12:00 AM HIV-1ANTIBODY Reviewed 12/16/2009 12:00 AM COMPLETE CBC W/AUTO DIFF WBC Reviewed 12/16/2009 12:00 AM METABOLIC PANEL TOTAL CA Reviewed 12/16/2009 12:00 AM Type and screen Reviewed 12/16/2009 12:00 AM PROTHROMBIN TIME Reviewed 12/16/2009 12:00 AM THROMBOPLASTIN TIME PARTIAL Reviewed 03/18/2010 12:00 AM DRAIN/INJ JOINT/BURSA W/O US Reviewed 03/18/2010 12:00 AM Quentin Lf-[address]-20 ANNA Reviewed 11/21/2013 12:00 AM RADEX HAND MINIMUM 3 VIEWS Returned 06/03/2010 12:00 AM INJ TRIGGER POINT 1/2 MUSCL Reviewed 06/03/2010 12:00 AM Kenalog per 10Mg Im-Nd#[address]-15(Niall) Reviewed 12/05/2013 12:00 AM COMPLETE CBC W/AUTO [...] Reviewed 07/23/2010 12:00 AM Kenalog per 10Mg Im-Nd#[address]-67(Niall) Reviewed 2014 12:00 AM COMPLETE CBC W/AUTO [...] INJ OCCIPITAL Reviewed 10/01/2010 12:00 AM Kenalog Es-[address]-20 ANNA Reviewed 07/25/2014 12:00 AM THER/PROPH/DIAG INJ [...] 0.60 mg/dLCALCIUM 10.90 mg/ dLeGFR >60 mL/min/1.73 [id number] 45.0 U/L 08/31/2013 10:54 AM GLUCOSE 255.0 [...] 0.40 mg/ dLCALCIUM 10.60 mg/dLeGFR >60 mL/min/1.73 [id number] 369.0 mg/ dLCHOLESTEROL 153.0 mg/dLHDL 26.0 mg/dLLDL [...] BILI 0.30 mg/dLCALCIUM 10.0 mg/dLeGFR >60 mL/min/1.73 [id number] YELLOW APPEARANCE CLEAR SPEC GRAV 1.010 pH [...] Not Entered 03/31/2011 05/30/2015 141 Influenza 04/24/2014 [facility] Fluzone [id number] Intramuscular Left Upper Arm 02/27/2014 01/15/2014 141 Influenza 02/13/2015 [facility] Fluzone [id number] Intramuscular Left Deltoid 02/13/2015 01/03/2015 140 History [...] of female genitalia Feb 13 2015 3:38PM Payers Insurance Name Company Name Plan Name Plan Number Policy Number Policy Group Number Start Date Medicare Part A Medicare Part A [id number] N/A [facility] [place] [facility] - Community Plan of [facility] RHC Comm [id number] N/A [employer] - [employer] [place] [employer] [id number] [facility] [place] Comm Plan of [id number] Wednesday, 2012 Medicare Part B Medicare [place] [id number] Monday, 2000 [place] [employer] [id number] Tuesday, 2009 History of Encounters Visit Date Visit Type Provider 02/13/2015 Office visit Heena Dumont MD 01/15/2015 Office visit Brittni Yanez PRACTICAL MINISTRIES PROFESSOR 01/13/2015 Office visit Heena Dumont MD 01/08/[address] Carol Fowler MD 01/01/2015 Office visit Brittni Yanez PRACTICAL MINISTRIES PROFESSOR 12/13/2014 Office visit Heena Dumont MD 11/27/2014 Office visit Kaylynn Mendez PRACTICAL MINISTRIES PROFESSOR 11/14/2014 Office visit Heena Dumont MD 10/18/2014 Office visit Heena Dumont MD 10/17/2014 [facility] John Hoskins MD 10/09/2014 Office visit Heena Dumont MD 09/25/2014 Office visit Heena Dumont MD 09/17/2014 Office visit Kaylynn Mendez PRACTICAL MINISTRIES PROFESSOR 09/04/2014 Office visit Heena Dumont MD 08/28/2014 Office visit Kaylynn Mendez PRACTICAL MINISTRIES PROFESSOR 08/23/2014 [facility] John Hoskins MD 08/01/2014 Office visit Kaylynn Mendez PRACTICAL MINISTRIES PROFESSOR 07/29/2014 Office visit Heena Dumont MD 07/25/2014 Nurse visit Heena Dumont MD 07/17/2014 Office visit Kaylynn Mendez PRACTICAL MINISTRIES PROFESSOR 07/11/2014 Office visit Heena Dumont MD 07/01/2014 Office visit Heena Dumont MD 06/25/2014 Office visit Kaylynn Mendez PRACTICAL MINISTRIES PROFESSOR 06/12/2014 Office visit Kaylynn Walker PRACTICAL MINISTRIES PROFESSOR 06/06/2014 Office visit Kaylynn Mendez PRACTICAL MINISTRIES PROFESSOR 05/27/2014 Office visit Heena Dumont MD 04/20/2014 Office visit Yesica Falcon PRACTICAL MINISTRIES PROFESSOR 03/29/2014 Office visit Na Jones PRACTICAL MINISTRIES PROFESSOR 03/15/2014 Office visit Heena Dumont MD 2014 Office visit Heena Dumont MD 2014 [facility] John Hoskins MD 02/27/2014 Nurse visit Heena Dumont MD 02/13/2014 Office visit Lena El PRACTICAL MINISTRIES PROFESSOR 02/07/2014 Office visit Heena Dumont MD 02/03/2014 Office visit Na Jones PRACTICAL MINISTRIES PROFESSOR 01/30/2014 Office visit Kaylynn Mendez PRACTICAL MINISTRIES PROFESSOR 01/24/2014 Office visit Sundeep Russell PRACTICAL MINISTRIES PROFESSOR 01/16/2014 Office visit Kaylynn Walker PRACTICAL MINISTRIES PROFESSOR 01/10/2014 Nurse visit Kaylynn Walker PRACTICAL MINISTRIES PROFESSOR 01/08/2014 Office visit Kaylynn Mendez PRACTICAL MINISTRIES PROFESSOR 12/05/2013 Office visit Kaylynn Walker PRACTICAL MINISTRIES PROFESSOR 11/21/2013 Office visit Kaylynn Mendez PRACTICAL MINISTRIES PROFESSOR 10/23/2013 Office visit Brittni Yanez PRACTICAL MINISTRIES PROFESSOR 10/17/2013 Nurse visit Heena Dumont MD 10/12/2013 Office visit Kaylynn Mendez PRACTICAL MINISTRIES PROFESSOR 10/02/2013 Office visit Heena Dumont MD 09/20/2013 Nurse visit Kaylynn Mendez PRACTICAL MINISTRIES PROFESSOR 09/20/2013 Voided Heena Dumont MD 09/14/2013 Office visit Kaylynn Walker PRACTICAL MINISTRIES PROFESSOR 09/05/2013 Office visit Sundeep Russell PRACTICAL MINISTRIES PROFESSOR 09/04/2013 Nurse visit Kaylynn Walker PRACTICAL MINISTRIES PROFESSOR 08/31/2013 Office visit Kaylynn Mendez PRACTICAL MINISTRIES PROFESSOR 08/23/2013 Office visit Heena Dumont MD 08/10/2013 Office visit Kaylynn Walker PRACTICAL MINISTRIES PROFESSOR 07/25/2013 Office visit Kaylynn Walker PRACTICAL MINISTRIES PROFESSOR 07/18/2013 Office visit Kaylynn Walker PRACTICAL MINISTRIES PROFESSOR 07/12/2013 Office visit Kaylynn Walker PRACTICAL MINISTRIES PROFESSOR 06/28/2013 Nurse visit Kaylynn Walker PRACTICAL MINISTRIES PROFESSOR 06/14/2013 Nurse visit Kaylynn Walker PRACTICAL MINISTRIES PROFESSOR 06/08/2013 Nurse visit Kaylynn Walker PRACTICAL MINISTRIES PROFESSOR 05/31/2013 Nurse visit Chadd Norris DO 05/18/2013 Office visit Terese Davidson MD 05/16/2013 Office visit Kaylynn Walker PRACTICAL MINISTRIES PROFESSOR 05/09/2013 Office visit Kaylynn Walker PRACTICAL MINISTRIES PROFESSOR 04/29/2013 [facility] John Hoskins MD 04/25/2013 Nurse visit Kaylynn Walker PRACTICAL MINISTRIES PROFESSOR 04/17/2013 Office visit Kaylynn Walker PRACTICAL MINISTRIES PROFESSOR 04/03/2013 Nurse visit Kaylynn Walker PRACTICAL MINISTRIES PROFESSOR 04/03/2013 Office visit Terese Davidson MD 03/28/2013 Office visit Sundeep Russell PRACTICAL MINISTRIES PROFESSOR 03/21/2013 Office visit Kaylynn Mendez PRACTICAL MINISTRIES PROFESSOR 03/20/2013 Office visit Terese Davidson MD 03/14/2013 Nurse visit Kaylynn Walker PRACTICAL MINISTRIES PROFESSOR 03/05/2013 Nurse visit Kaylynn Walker PRACTICAL MINISTRIES PROFESSOR 02/19/2013 Office visit Terese Davidson MD 02/16/2013 Nurse visit Kaylynn Walker PRACTICAL MINISTRIES PROFESSOR 02/09/2013 Office visit Sundeep Russell PRACTICAL MINISTRIES PROFESSOR 02/08/2013 Nurse visit Kaylynn Walker PRACTICAL MINISTRIES PROFESSOR 02/01/2013 Nurse visit Kaylynn Walker PRACTICAL MINISTRIES PROFESSOR 01/26/2013 Nurse visit Sabrina Andrea POLISHER BALANCE SCREWHEAD 01/25/2013 Office visit Kaylynn Mendez PRACTICAL MINISTRIES PROFESSOR 01/22/2013 Office visit Yoan Castaneda MD 01/18/2013 Nurse visit Kaylynn Walker PRACTICAL MINISTRIES PROFESSOR 01/11/2013 Nurse visit Kaylynn Walker PRACTICAL MINISTRIES PROFESSOR 01/05/2013 Nurse visit Kaylynn Mendez PRACTICAL MINISTRIES PROFESSOR 12/29/2012 Office visit Kaylynn Andrea PRACTICAL MINISTRIES PROFESSOR 11/27/2012 Office visit Kaylynn Mendez PRACTICAL MINISTRIES PROFESSOR 11/08/2012 Office visit Odell Tierney MD 11/08/2012 Voided Odell Tierney MD 11/07/2012 Office visit Kaylynn Mendez PRACTICAL MINISTRIES PROFESSOR 10/31/2012 [facility] John Hoskins MD 10/31/2012 Office visit Kaylynn Mendez PRACTICAL MINISTRIES PROFESSOR 10/19/2012 Office visit Genoveva Ayala PRACTICAL MINISTRIES PROFESSOR 10/10/2012 Office visit Kaylynn Mendez PRACTICAL MINISTRIES PROFESSOR 10/03/2012 Office visit Kaylynn Mendez PRACTICAL MINISTRIES PROFESSOR 09/26/2012 Office visit Kaylynn Mendez PRACTICAL MINISTRIES PROFESSOR 09/06/2012 Office visit Kaylynn Mendez PRACTICAL MINISTRIES PROFESSOR 09/06/2012 Office visit Odell Tierney MD 08/31/2012 Voided Kaylynn Mendez PRACTICAL MINISTRIES PROFESSOR 07/28/2012 Office visit Kaylynn Mendez PRACTICAL MINISTRIES PROFESSOR 07/27/2012 Office visit David Joyner DO 07/20/2012 [facility] David Joyner DO 07/13/2012 [facility] David Joyner DO 07/11/2012 Office visit Kaylynn Mendez PRACTICAL MINISTRIES PROFESSOR 06/27/2012 [facility] Odell Tierney MD 06/21/2012 Office visit David Joyner DO 06/21/2012 Office visit Odell Tierney MD 06/20/2012 Office visit Brittni Yanez PRACTICAL MINISTRIES PROFESSOR 06/06/2012 Office visit Odell Tierney MD 05/03/2012 Office visit Kayylnn Andrea PRACTICAL MINISTRIES PROFESSOR 04/28/2012 Office visit Brittnikitty Yanez PRACTICAL MINISTRIES PROFESSOR 04/11/2012 Office visit Kyalynn Andrea PRACTICAL MINISTRIES PROFESSOR 04/06/2012 [facility] John Hoskins MD 03/30/2012 Office visit Kaylynn Mendez PRACTICAL MINISTRIES PROFESSOR 03/15/2012 Office visit Kaylynn Mendez PRACTICAL MINISTRIES PROFESSOR 03/15/2012 Office visit Odell Tierney MD 02/09/2012 Office visit Kaylynn Walker PRACTICAL MINISTRIES PROFESSOR 12/23/2011 Office visit Kaylynn Walker PRACTICAL MINISTRIES PROFESSOR 11/02/2011 Office visit Kaylynn Walker PRACTICAL MINISTRIES PROFESSOR 10/14/2011 Office visit Kaylynn Walker PRACTICAL MINISTRIES PROFESSOR 09/27/2011 Office visit Kaylynn Walker PRACTICAL MINISTRIES PROFESSOR 08/19/2011 [facility] John Hoskins MD 08/18/2011 [facility] John Hoskins MD 08/18/2011 Office visit Kaylynn Mendez PRACTICAL MINISTRIES PROFESSOR 08/02/2011 Office visit Kaylynn Mendez PRACTICAL MINISTRIES PROFESSOR 07/08/2011 Office visit Kaylynn Mendez PRACTICAL MINISTRIES PROFESSOR 07/05/2011 Office visit Odell Tierney MD 06/15/2011 Office visit Kaylynn Mendez PRACTICAL MINISTRIES PROFESSOR 05/14/2011 Office visit Kaylynn Mendez PRACTICAL MINISTRIES PROFESSOR 05/11/2011 Office visit Odell Tierney MD 04/28/2011 Office visit Kaylynn Mendez PRACTICAL MINISTRIES PROFESSOR 03/02/2011 Office visit Chadd Norris DO 02/17/2011 Office visit Chadd Norris DO 01/19/2011 Office visit Odell Tierney MD 12/16/2010 Office visit Odell Tierney MD 12/02/2010 Office visit Yoan Castaneda MD 11/24/2010 Office visit Chadd Norris DO 11/17/2010 Office visit Chadd Norris DO 10/01/2010 Office visit Odell Teirney MD 09/02/2010 Office visit Odell Tierney MD [...]
--- OUTSIDE RECORDS SUMMARY | 2018-05-10 03:30 | XMS REPORT ---
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 One[employer]ara Mandel Lancjaxson 33 gauge miscellaneous misc 01/21/2016 use as [...] 08/27/2014 use as directed for 99 days [place] 5-325 mg oral tablet 06/17/2014 06/27/2014 take [...] a day as needed for 30 days [id number]-awyjpdzls-UZ 3.5-10,000-1 mg/mL-unit/mL-% otic drops,suspension 201401/08/2015 instill 4 [...] HC BMI BSA BMI Percentile O2 Sat(%) 03/05/2016 10:47:00 AM 91 bpm 18 rpm [...] Decadron 1 mg [facility]#81305375742 (Jr) Reviewed 04/28/2011 12:00 AM Depo-Medrol 80 mg [facility]#[id number]-Yjpxddui Reviewed 09/02/2015 12:00 AM Toradol 60 Mg ND#6311-7660-62 Reviewed 09/02/2015 12:00 AM Phenergan, Up to 50 Mg [facility] Medicaid Reviewed 09/16/2015 12:00 AM Toradol 60 Mg ND#5532-4761-62 Reviewed 09/16/2015 12:00 AM Phenergan Up to 50 mg [facility] Medicare Reviewed 05/11/2011 12:00 AM N BLOCK INJ OCCIPITAL Reviewed 05/11/2011 12:00 AM Kenalog Ha-[address]-20 ANNA Reviewed 11/13/2015 12:00 AM ASSAY OF [...] 12:00 AM Toradol,15mg [facility]#[id number], Adilene Reviewed 07/08/2011 12:00 AM Phenergan 50 Mg Im [facility] [id number] [facility] Reviewed 01/21/2016 12:00 AM ECG MONIT/REPRT UP TO 48 HRS Returned 08/02/2011 12:00 AM THER/PROPH/DIAG INJ SC/IM Reviewed 08/02/2011 12:00 AM Decadron 1 mg [facility]#[id number] (Jr) Reviewed 08/02/2011 12:00 AM Depo-Medrol 80 mg [facility]#[id number]-Xunviivb Reviewed 03/05/2016 12:00 AM COMPLETE CBC W/AUTO DIFF WBC Returned 03/05/2016 12:00 AM STREP A ASSAY W/OPTIC Returned 03/05/2016 12:00 AM C-REACTIVE PROTEIN Returned 09/27/2011 12:00 AM THER/PROPH/DIAG INJ SC/IM Reviewed 09/27/2011 12:00 AM Depo-Medrol 80 mg [facility]#[id number]-Hraxktmb Reviewed 10/14/2011 12:00 AM X-RAY EXAM OF ABDOMEN Returned 10/14/2011 12:00 AM URINALYSIS AUTO W/O SCOPE Reviewed 12/23/2011 12:00 AM THER/PROPH/DIAG INJ SC/IM Reviewed 12/23/2011 12:00 AM Decadron 1 mg [facility]#[id number] (Jr) Reviewed 12/23/2011 12:00 AM Depo-Medrol 80 mg [facility]#[id number]-Orvvrcpo Reviewed 02/09/2012 12:00 AM THER/PROPH/DIAG INJ SC/IM Reviewed 02/09/2012 12:00 AM Decadron 1 mg [facility]#[id number] (Jr) Reviewed 02/09/2012 12:00 AM Depo-Medrol 80 mg [facility]#45101575166-Qgkksotv Reviewed 03/15/2012 12:00 AM N BLOCK INJ OCCIPITAL Reviewed 03/15/2012 12:00 AM Kenalog Yt-[address]-20 ANNA Reviewed 04/11/2012 12:00 AM COMPLETE CBC W/AUTO DIFF WBC Returned 04/11/2012 12:00 AM COMPREHEN METABOLIC PANEL Returned 04/11/2012 12:00 AM LIPID PANEL Returned 04/11/2012 12:00 AM ASSAY THYROID STIM HORMONE Returned 06/20/2012 12:00 AM THER/PROPH/DIAG INJ SC/IM Reviewed 06/20/2012 12:00 AM Decadron, Per 1 Mg ND# [address]-95 Reviewed 06/20/2012 12:00 AM Depo-Medrol, Per 80 Mg ND#3555-8641-10 Reviewed 09/06/2012 12:00 AM N BLOCK INJ OCCIPITAL Reviewed 09/06/2012 12:00 AM Kenalog Cf-[address]-20 ANNA Reviewed 09/06/2012 12:00 AM X-RAY EXAM RIBS UNI 2 VIEWS Returned 09/26/2012 12:00 AM THER/PROPH/DIAG INJ SC/IM Reviewed 09/26/2012 12:00 AM Decadron, Per 1 Mg [facility]# [address]-05 Reviewed 09/26/2012 12:00 AM Depo-Medrol, Per 80 Mg ND#9958-1403-80 Reviewed 10/03/2012 12:00 AM URINALYSIS AUTO W/O SCOPE Reviewed 10/03/2012 12:00 AM THER/PROPH/DIAG INJ SC/IM Reviewed 10/03/2012 12:00 AM Toradol 60 Mg [facility]#2855-5511-56 Reviewed 10/03/2012 12:00 AM Phenergan, 25Mg ND#5800-6585-96 Reviewed 10/19/2012 12:00 AM N BLOCK INJ OCCIPITAL Reviewed 10/19/2012 12:00 AM Kenalog, Per 10 Mg [facility]#3972-6343-76 Reviewed 10/19/2012 12:00 AM Toradol 30 Mg [facility]#5612-5182-11 Reviewed 10/19/2012 12:00 AM THER/PROPH/DIAG INJ SC/IM Reviewed 10/31/2012 12:00 AM COMPLETE CBC W/AUTO DIFF WBC Returned 10/31/2012 12:00 AM COMPREHEN METABOLIC PANEL Returned 10/31/2012 12:00 AM LIPID PANEL Returned 11/03/2012 12:[address] THORAX W/O & W/DYE Returned 11/08/2012 12:00 AM N BLOCK INJ OCCIPITAL Reviewed 11/08/2012 12:00 AM Kenalog Ov-[address]-20 ANNA Reviewed 11/27/2012 12:00 AM COMPLETE CBC [...] 1 Mg [facility]# [address]-47 Reviewed 01/25/2013 12:00 AM Depo-Medrol, Per 80 Mg [facility]#6490-7811-48 Reviewed 01/26/2013 12:00 AM IMMUNOTHERAPY INJECTIONS Returned [...] 1 Mg [facility]# [address]-63 Reviewed 05/16/2013 12:00 AM Depo-Medrol, Per 80 Mg [facility]#0221-4161-65 Reviewed 05/31/2013 12:00 AM IMMUNOTHERAPY INJECTIONS Reviewed 06/08/2013 12:00 AM IMMUNOTHERAPY INJECTIONS Reviewed 06/14/2013 12:00 AM IMMUNOTHERAPY INJECTIONS Reviewed 06/28/2013 12:00 AM IMMUNOTHERAPY INJECTIONS Reviewed 07/12/2013 12:00 AM X-RAY EXAM RIBS UNI 2 VIEWS Returned 07/18/2013 12:00 AM Toradol 60 Mg [facility]#5395-9541-54 Reviewed 07/18/2013 12:00 AM THER/PROPH/DIAG INJ SC/IM [...] 1 Mg [facility]# [address]-34 Reviewed 09/14/2013 12:00 AM Depo-Medrol, Per 80 Mg [facility]#8331-6323-26 Reviewed 09/20/2013 12:00 AM IMMUNOTHERAPY INJECTIONS Reviewed [...] INJ OCCIPITAL Reviewed 12/10/2009 12:00 AM Kenalog Gk-[address]-20 ANNA Reviewed 12/16/2009 12:00 AM HIV-1ANTIBODY Reviewed 12/16/2009 12:00 AM COMPLETE CBC W/AUTO DIFF WBC Reviewed 12/16/2009 12:00 AM METABOLIC PANEL TOTAL CA Reviewed 12/16/2009 12:00 AM Type and screen Reviewed 12/16/2009 12:00 AM PROTHROMBIN TIME Reviewed 12/16/2009 12:00 AM THROMBOPLASTIN TIME PARTIAL Reviewed 03/18/2010 12:00 AM DRAIN/INJ JOINT/BURSA W/O US Reviewed 03/18/2010 12:00 AM Kenalog Bk-[address]-20 ANNA Reviewed 11/21/2013 12:00 AM RADEX HAND MINIMUM 3 VIEWS Returned 06/03/2010 12:00 AM INJ TRIGGER POINT 1/2 MUSCL Reviewed 06/03/2010 12:00 AM Kenalog per 10Mg Im-[facility]#[address]-34(Niall) Reviewed 12/05/2013 12:00 AM COMPLETE CBC W/AUTO [...] Reviewed 07/23/2010 12:00 AM Kenalog per 10Mg Im-[facility]#[address]-96(Niall) Reviewed 2014 12:00 AM COMPLETE CBC W/AUTO [...] INJ OCCIPITAL Reviewed 10/01/2010 12:00 AM Kenalog Mu-[address]-20 ANNA Reviewed 07/25/2014 12:00 AM THER/PROPH/DIAG INJ [...] 0.60 mg/dLCALCIUM 10.90 mg/ dLeGFR >60 mL/min/1.73 [id number] 45.0 U/L 08/31/2013 10:54 AM GLUCOSE 255.0 [...] 0.40 mg/ dLCALCIUM 10.60 mg/dLeGFR >60 mL/min/1.73 [id number] 369.0 mg/ dLCHOLESTEROL 153.0 mg/dLHDL 26.0 mg/dLLDL [...] BILI 0.30 mg/dLCALCIUM 10.0 mg/dLeGFR >60 mL/min/1.73 [id number] YELLOW APPEARANCE CLEAR SPEC GRAV 1.010 pH 5.5 PROTEIN NEGATIVE GLUCOSE NEGATIVE KETONE NEGATIVE BILIRUBIN NEGATIVE BLOOD NEGATIVE NITRITE NEGATIVE LEUK SCREEN NEGATIVE Est Avg Glucose 134.1 mg/dLMICROALBUMIN UR <0.5 MG/DL 02/13/2015 4:38 PM RMSF, IgG, EIA Negative [facility] Spotted Fever,IgM 0.51 E. chaffeensis [...] 141 Influenza 04/24/2014 sanofi pasteur PMC Fluzone [id number] Intramuscular Left Upper Arm 02/27/2014 01/15/2014 141 Influenza 02/13/2015 sanofi pasteur PMC Fluzone [id number] Intramuscular Left Deltoid 02/13/2015 01/03/2015 140 Tdap 06/06/2015 Gl[employer]oSm[employer]strK[employer] SKB BOOSTRIX [id number] Intramuscular Left Deltoid 06/06/2015 [...] upper respiratory infection Mar 05 2016 10:52AM Payers Insurance Name Company Name Plan Name Plan Number Policy Number Policy Group Number Start Date Medicare Part A Medicare [facility] [id number] N/A [facility] [place] [facility] [id number] N/A Medicare Part A Medicare - Lab/Xray [id number] N/A Medicare Part B Medicare [place] [id number] Monday, February 28, 2000 [place] [facility] Medical Assistance Prog [id number] Tuesday, November 10, 2009 Medicare Part A Medicare Part A [id number] N/A [facility] Manager Prog - RHC [facility] Asst Prog - RHC [id number] [facility] Plan of [id number] Wednesday, May 30, 2012 History of Encounters Visit Date Visit Type Provider 03/05/2016 Office visit Kaylynn Mendez LOSS PREVENTION DETECTIVE 02/16/2016 Office visit Heena Dumont MD 02/14/2016 Office visit Na Jones LOSS PREVENTION DETECTIVE 01/16/2016 Office visit Heena Dumont MD 12/16/2015 Office visit Heena Dumont MD 11/24/2015 Office visit Kaylynn Mendez LOSS PREVENTION DETECTIVE 11/18/2015 Office visit Heena Dumont MD 11/03/2015 Office visit Sundeep Russell LOSS PREVENTION DETECTIVE 10/20/2015 Office visit Kaylynn Mendez LOSS PREVENTION DETECTIVE 09/23/2015 Office visit Kaylynn Mendez LOSS PREVENTION DETECTIVE 09/16/[address] Pepe Figueroa MD 09/02/2015 Office visit Kaylynn Mendez LOSS PREVENTION DETECTIVE 09/01/2015 Office visit Kaylynn Mendez LOSS PREVENTION DETECTIVE 07/30/2015 Office visit Heena Dumont MD 07/15/2015 Office visit Kaylynn Mendez LOSS PREVENTION DETECTIVE 07/04/2015 Office visit Heena Dumont MD 06/06/2015 Office visit Heena Dumont MD 06/06/2015 Office visit Kaylynn Mendez LOSS PREVENTION DETECTIVE 06/02/2015 Office visit Kaylynn Mendez LOSS PREVENTION DETECTIVE 05/26/2015 Office visit Kaylynn Mendez LOSS PREVENTION DETECTIVE 05/20/2015 Office visit Kaylynn Mendez LOSS PREVENTION DETECTIVE 05/08/2015 Office visit Heena Dumont MD 05/06/2015 Office visit Kaylynn Mendez LOSS PREVENTION DETECTIVE 04/29/2015 Office visit Kaylynn Mendez LOSS PREVENTION DETECTIVE 03/27/2015 Voided Brittni Yanez LOSS PREVENTION DETECTIVE 03/21/2015 Office visit Heena Dumont MD 03/12/2015 Office visit Kaylynn Mendez LOSS PREVENTION DETECTIVE 02/26/2015 Office visit Brittni Yanez LOSS PREVENTION DETECTIVE 02/13/2015 Office visit Heena Dumont MD 01/15/2015 Office visit Brittni Yanez LOSS PREVENTION DETECTIVE 01/13/2015 Office visit Heena Dumont MD 01/08/[address] Carol Fowler MD 01/01/2015 Office visit Brittni Yanez LOSS PREVENTION DETECTIVE 12/13/2014 Office visit Heena Dumont MD 11/27/2014 Office visit Kaylynn Mendez LOSS PREVENTION DETECTIVE 11/14/2014 Office visit Heena Dumont MD 10/18/2014 Office visit Heena Dumont MD 10/17/2014 Hospital John Hoskins MD 10/09/2014 Office visit Heena Dumont MD 09/25/2014 Office visit Heena Dumont MD 09/17/2014 Office visit Kaylynn Mendez LOSS PREVENTION DETECTIVE 09/04/2014 Office visit Heena Dumont MD 08/28/2014 Office visit Kaylynn Mendez LOSS PREVENTION DETECTIVE 08/23/2014 [facility] John Hoskins MD 08/01/2014 Office visit Kaylynn Mendez LOSS PREVENTION DETECTIVE 07/29/2014 Office visit Heena Dumont MD 07/25/2014 Nurse visit Heena Dumont MD 07/17/2014 Office visit Kaylynn Mendez LOSS PREVENTION DETECTIVE 07/11/2014 Office visit Heena Dumont MD 07/01/2014 Office visit Heena Dumont MD 06/25/2014 Office visit Kaylynn Mendez LOSS PREVENTION DETECTIVE 06/12/2014 Office visit Kaylynn Mendez LOSS PREVENTION DETECTIVE 06/06/2014 Office visit Kaylynn Mendez LOSS PREVENTION DETECTIVE 05/27/2014 Office visit Heena Dumont MD 04/20/2014 Office visit Yesica Falcon LOSS PREVENTION DETECTIVE 03/29/2014 Office visit Na Jones LOSS PREVENTION DETECTIVE 03/15/2014 Office visit Heena Dumont MD 2014 Office visit Heena Dumont MD 2014 [facility] John Hoskins MD 02/27/2014 Nurse visit Heena Dumont MD 02/13/2014 Office visit Lena El LOSS PREVENTION DETECTIVE 02/07/2014 Office visit Heena Dumont MD 02/03/2014 Office visit Na Jones LOSS PREVENTION DETECTIVE 01/30/2014 Office visit Kaylynn Mendez LOSS PREVENTION DETECTIVE 01/24/2014 Office visit Sundeep Russell LOSS PREVENTION DETECTIVE 01/16/2014 Office visit Kaylynn Mendez LOSS PREVENTION DETECTIVE 01/10/2014 Nurse visit Kaylynn Mendez LOSS PREVENTION DETECTIVE 01/08/2014 Office visit Kaylynn Mendez LOSS PREVENTION DETECTIVE 12/05/2013 Office visit Kaylynn Mendez LOSS PREVENTION DETECTIVE 11/21/2013 Office visit Kaylynn Mendez LOSS PREVENTION DETECTIVE 10/23/2013 Office visit Brittni Yanez LOSS PREVENTION DETECTIVE 10/17/2013 Nurse visit Heena Dumont MD 10/12/2013 Office visit Kaylynn Mendez LOSS PREVENTION DETECTIVE 10/02/2013 Office visit Heena Dumont MD 09/20/2013 Nurse visit Kaylynn Mendez LOSS PREVENTION DETECTIVE 09/20/2013 Voided Heena Dumont MD 09/14/2013 Office visit Kaylynn Walker LOSS PREVENTION DETECTIVE 09/05/2013 Office visit Sundeep Drew LOSS PREVENTION DETECTIVE 09/04/2013 Nurse visit Kaylynn Walker LOSS PREVENTION DETECTIVE 08/31/2013 Office visit Kaylynn Walker LOSS PREVENTION DETECTIVE 08/23/2013 Office visit Heena Dumont MD 08/10/2013 Office visit Kaylynn Walker LOSS PREVENTION DETECTIVE 07/25/2013 Office visit Kaylynn Walker LOSS PREVENTION DETECTIVE 07/18/2013 Office visit Kaylynn Walker LOSS PREVENTION DETECTIVE 07/12/2013 Office visit Kaylynn Walker LOSS PREVENTION DETECTIVE 06/28/2013 Nurse visit Kaylynn Walker LOSS PREVENTION DETECTIVE 06/14/2013 Nurse visit Kaylynn Walker LOSS PREVENTION DETECTIVE 06/08/2013 Nurse visit Kaylynn Walker LOSS PREVENTION DETECTIVE 05/31/2013 Nurse visit Chadd Norris DO 05/18/2013 Office visit Terese Davidson MD 05/16/2013 Office visit Kaylynn Walker LOSS PREVENTION DETECTIVE 05/09/2013 Office visit Kaylynn Walker LOSS PREVENTION DETECTIVE 04/29/2013 [facility] John Hoskins MD 04/25/2013 Nurse visit Kaylynn Walker LOSS PREVENTION DETECTIVE 04/17/2013 Office visit Kaylynn Walker LOSS PREVENTION DETECTIVE 04/03/2013 Nurse visit Kaylynn Mendez LOSS PREVENTION DETECTIVE 04/03/2013 Office visit Terese Davidson MD 03/28/2013 Office visit Sundeep Russell LOSS PREVENTION DETECTIVE 03/21/2013 Office visit Kaylynn Mendez LOSS PREVENTION DETECTIVE 03/20/2013 Office visit Terese Davidson MD 03/14/2013 Nurse visit Kaylynn Walker LOSS PREVENTION DETECTIVE 03/05/2013 Nurse visit Kaylynn Mendez LOSS PREVENTION DETECTIVE 02/19/2013 Office visit Terese Davidson MD 02/16/2013 Nurse visit Kaylynn Mendez LOSS PREVENTION DETECTIVE 02/09/2013 Office visit Sundeep Russell LOSS PREVENTION DETECTIVE 02/08/2013 Nurse visit Kaylynn Walker LOSS PREVENTION DETECTIVE 02/01/2013 Nurse visit Kaylynn Walker LOSS PREVENTION DETECTIVE 01/26/2013 Nurse visit Sabrina Mendez EXECUTIVE SECRETARY 01/25/2013 Office visit Kaylynn Walker LOSS PREVENTION DETECTIVE 01/22/2013 Office visit Yoan Castaneda MD 01/18/2013 Nurse visit Kaylynn Walker LOSS PREVENTION DETECTIVE 01/11/2013 Nurse visit Kaylynn Walker LOSS PREVENTION DETECTIVE 01/05/2013 Nurse visit Kaylynn Walker LOSS PREVENTION DETECTIVE 12/29/2012 Office visit Kaylynn Walker LOSS PREVENTION DETECTIVE 11/27/2012 Office visit Kaylynn Walker LOSS PREVENTION DETECTIVE 11/08/2012 Office visit Odell Tierney MD 11/08/2012 Voided Odell Tierney MD 11/07/2012 Office visit Kaylynn Walker LOSS PREVENTION DETECTIVE 10/31/2012 [facility] John Hoskins MD 10/31/2012 Office visit Kaylynn Walker LOSS PREVENTION DETECTIVE 10/19/2012 Office visit Genoveva JamBarbara Ayala LOSS PREVENTION DETECTIVE 10/10/2012 Office visit Kaylynn Walker LOSS PREVENTION DETECTIVE 10/03/2012 Office visit Kaylynn Walker LOSS PREVENTION DETECTIVE 09/26/2012 Office visit Kaylynn Walker LOSS PREVENTION DETECTIVE 09/06/2012 Office visit Kaylynn Walker LOSS PREVENTION DETECTIVE 09/06/2012 Office visit Odell Tierney MD 08/31/2012 Voided Kaylynn Andrea LOSS PREVENTION DETECTIVE 07/28/2012 Office visit Kaylynn Walker LOSS PREVENTION DETECTIVE 07/27/2012 Office visit David Joyner DO 07/20/2012 Hospital David Joyner DO 07/13/2012 [facility] David Joyner DO 07/11/2012 Office visit Kaylynn Mendez LOSS PREVENTION DETECTIVE 06/27/2012 [facility] Odell Tierney MD 06/21/2012 Office visit David Joyner DO 06/21/2012 Office visit Odell Tierney MD 06/20/2012 Office visit Brittni Yanez LOSS PREVENTION DETECTIVE 06/06/2012 Office visit Odell Tierney MD 05/03/2012 Office visit Kaylynn Mendez LOSS PREVENTION DETECTIVE 04/28/2012 Office visit Brittni Yanez LOSS PREVENTION DETECTIVE 04/11/2012 Office visit Kaylynn Mendez LOSS PREVENTION DETECTIVE 04/06/2012 [facility] John Hoskins MD 03/30/2012 Office visit Kaylynn Mendez LOSS PREVENTION DETECTIVE 03/15/2012 Office visit Kaylynn Mendez LOSS PREVENTION DETECTIVE 03/15/2012 Office visit Odell Tierney MD 02/09/2012 Office visit Kaylynn Mendez LOSS PREVENTION DETECTIVE 12/23/2011 Office visit Kaylynn Mendez LOSS PREVENTION DETECTIVE 11/02/2011 Office visit Kaylynn Mendez LOSS PREVENTION DETECTIVE 10/14/2011 Office visit Kaylynn Walker LOSS PREVENTION DETECTIVE 09/27/2011 Office visit Kaylynn Mendez LOSS PREVENTION DETECTIVE 08/19/2011 Hospital John Hoskins MD 08/18/2011 [facility] John Hoskins MD 08/18/2011 Office visit Kaylynn Mendez LOSS PREVENTION DETECTIVE 08/02/2011 Office visit Kaylynn Walker LOSS PREVENTION DETECTIVE 07/08/2011 Office visit Kaylynn Mendez LOSS PREVENTION DETECTIVE 07/05/2011 Office visit Odell Tierney MD 06/15/2011 Office visit Kaylynn Mendez LOSS PREVENTION DETECTIVE 05/14/2011 Office visit Kaylynn Mendez LOSS PREVENTION DETECTIVE 05/11/2011 Office visit Odell Tierney MD 04/28/2011 Office visit Kaylynn Mendez LOSS PREVENTION DETECTIVE 03/02/2011 Office visit Chadd Norris DO 02/17/2011 [...]
--- OUTSIDE RECORDS SUMMARY | 2018-05-10 03:46 | XMS REPORT ---
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 Name Role Phone Kaylynn Mendez PCP Unavailable [...] 08/27/2014 use as directed for 99 days [place] 5-325 mg oral tablet 06/17/2014 06/27/2014 take [...] a day as needed for 30 days shjxygcu-jlejgqfsx-WK 3.5-10,000-1 mg/mL-unit/mL-% otic drops,suspension 201401/08/2015 instill 4 [...] 04/28/2011 12:00 AM Decadron 1 mg [facility]#[id number] (Jr) Reviewed 04/28/2011 12:00 AM Depo-Medrol 80 mg ND#[id number]-Zjyatekn Reviewed 05/11/2011 12:00 AM N BLOCK INJ OCCIPITAL Reviewed 05/11/2011 12:00 AM Kenalog Jl-[id number] ANNA Reviewed 06/15/2011 12:00 AM COMPLETE CBC W/AUTO DIFF WBC Returned 06/15/2011 12:00 AM COMPREHEN METABOLIC PANEL Returned 07/08/2011 12:00 AM THER/PROPH/DIAG INJ SC/IM Reviewed 07/08/2011 12:00 AM Toradol,15mg ND#[id number], Adilene Reviewed 07/08/2011 12:00 AM Phenergan 50 [place] 6606-7902-60 ALLIE Hoskins Reviewed 08/02/2011 12:00 AM THER/PROPH/DIAG INJ SC/IM Reviewed 08/02/2011 12:00 AM Decadron 1 mg NDC#[id number] (Jr) Reviewed 08/02/2011 12:00 AM Depo-Medrol 80 mg NDC#[id number]-Gpwvgaag Reviewed 09/27/2011 12:00 AM THER/PROPH/DIAG INJ SC/IM Reviewed 09/27/2011 12:00 AM Depo-Medrol 80 mg NDC#[id number]-Qhapvksj Reviewed 10/14/2011 12:00 AM X-RAY EXAM OF ABDOMEN Returned 10/14/2011 12:00 AM URINALYSIS AUTO W/O SCOPE Reviewed 12/23/2011 12:00 AM THER/PROPH/DIAG INJ SC/IM Reviewed 12/23/2011 12:00 AM Decadron 1 mg NDC#[id number] (Jr) Reviewed 12/23/2011 12:00 AM Depo-Medrol 80 mg NDC#[id number]-Auqbyjuz Reviewed 02/09/2012 12:00 AM THER/PROPH/DIAG INJ SC/IM Reviewed 02/09/2012 12:00 AM Decadron 1 mg NDC#[id number] (Jr) Reviewed 02/09/2012 12:00 AM Depo-Medrol 80 mg NDC#[id number]-Jpjtrczc Reviewed 03/15/2012 12:00 AM N BLOCK INJ OCCIPITAL Reviewed 03/15/2012 12:00 AM Kenalog Sh-[address]-20 ANNA Reviewed 04/11/2012 12:00 AM COMPLETE CBC W/AUTO DIFF WBC Returned 04/11/2012 12:00 AM COMPREHEN METABOLIC PANEL Returned 04/11/2012 12:00 AM LIPID PANEL Returned 04/11/2012 12:00 AM ASSAY THYROID STIM HORMONE Returned 06/20/2012 12:00 AM THER/PROPH/DIAG INJ SC/IM Reviewed 06/20/2012 12:00 AM Decadron, Per 1 Mg NDC# [address]-57 Reviewed 06/20/2012 12:00 AM Depo-Medrol, Per 80 Mg NDC#3069-3556-43 Reviewed 09/06/2012 12:00 AM N BLOCK INJ OCCIPITAL Reviewed 09/06/2012 12:00 AM Kenalog Xs-[address]-20 ANNA Reviewed 09/06/2012 12:00 AM X-RAY EXAM RIBS UNI 2 VIEWS Returned 09/26/2012 12:00 AM THER/PROPH/DIAG INJ SC/IM Reviewed 09/26/2012 12:00 AM Decadron, Per 1 Mg [facility]# [address]-10 Reviewed 09/26/2012 12:00 AM Depo-Medrol, Per 80 Mg [facility]#5639-0630-42 Reviewed 10/03/2012 12:00 AM URINALYSIS AUTO W/O SCOPE Reviewed 10/03/2012 12:00 AM THER/PROPH/DIAG INJ SC/IM Reviewed 10/03/2012 12:00 AM Toradol 60 Mg [facility]#6890-1833-77 Reviewed 10/03/2012 12:00 AM Phenergan, 25Mg [facility]#8690-9496-35 Reviewed 10/19/2012 12:00 AM N BLOCK INJ OCCIPITAL Reviewed 10/19/2012 12:00 AM Kenalog, Per 10 Mg [facility]#5222-7072-62 Reviewed 10/19/2012 12:00 AM Toradol 30 Mg [facility]#8123-5034-72 Reviewed 10/19/2012 12:00 AM THER/PROPH/DIAG INJ SC/IM Reviewed 10/31/2012 12:00 AM COMPLETE CBC W/AUTO DIFF WBC Returned 10/31/2012 12:00 AM COMPREHEN METABOLIC PANEL Returned 10/31/2012 12:00 AM LIPID PANEL Returned 11/03/2012 12:[address] THORAX W/O & W/DYE Returned 11/08/2012 12:00 AM N BLOCK INJ OCCIPITAL Reviewed 11/08/2012 12:00 AM Kenalog Ju-[address]-20 ANNA Reviewed 11/27/2012 12:00 AM COMPLETE CBC [...] 12:00 AM Decadron, Per 1 Mg [facility]# [address]-13 Reviewed 01/25/2013 12:00 AM Depo-Medrol, Per 80 Mg [facility]#9209-5439-06 Reviewed 01/26/2013 12:00 AM IMMUNOTHERAPY INJECTIONS Returned [...] 12:00 AM Decadron, Per 1 Mg [facility]# [address]-09 Reviewed 05/16/2013 12:00 AM Depo-Medrol, Per 80 Mg [facility]#4738-7558-61 Reviewed 05/31/2013 12:00 AM IMMUNOTHERAPY INJECTIONS Reviewed 06/08/2013 12:00 AM IMMUNOTHERAPY INJECTIONS Reviewed 06/14/2013 12:00 AM IMMUNOTHERAPY INJECTIONS Reviewed 06/28/2013 12:00 AM IMMUNOTHERAPY INJECTIONS Reviewed 07/12/2013 12:00 AM X-RAY EXAM RIBS UNI 2 VIEWS Returned 07/18/2013 12:00 AM Toradol 60 Mg [facility]#9680-2486-48 Reviewed 07/18/2013 12:00 AM THER/PROPH/DIAG INJ SC/IM Reviewed 08/23/2013 12:00 AM COMPLETE CBC W/AUTO DIFF WBC Reviewed 08/23/2013 12:00 AM COMPREHEN METABOLIC PANEL Reviewed 08/23/2013 12:00 AM LIPID PANEL Reviewed 08/31/2013 12:00 AM X-RAY EXAM OF LOWER LEG Returned 09/04/2013 12:00 AM IMMUNOTHERAPY INJECTIONS Reviewed 09/14/2013 12:00 AM THER/PROPH/DIAG INJ SC/IM Reviewed 09/14/2013 12:00 AM Decadron, Per 1 Mg [facility]# [address]-53 Reviewed 09/14/2013 12:00 AM Depo-Medrol, Per 80 Mg [facility]#6050-3384-40 Reviewed 09/20/2013 12:00 AM IMMUNOTHERAPY INJECTIONS Reviewed [...] INJ OCCIPITAL Reviewed 12/10/2009 12:00 AM Kenalog Fs-[address]-20 ANNA Reviewed 12/16/2009 12:00 AM HIV-1ANTIBODY Reviewed 12/16/2009 12:00 AM COMPLETE CBC W/AUTO DIFF WBC Reviewed 12/16/2009 12:00 AM METABOLIC PANEL TOTAL CA Reviewed 12/16/2009 12:00 AM Type and screen Reviewed 12/16/2009 12:00 AM PROTHROMBIN TIME Reviewed 12/16/2009 12:00 AM THROMBOPLASTIN TIME PARTIAL Reviewed 03/18/2010 12:00 AM DRAIN/INJ JOINT/BURSA W/O US Reviewed 03/18/2010 12:00 AM Kenalog Ji-[address]-20 ANNA Reviewed 11/21/2013 12:00 AM RADEX HAND MINIMUM 3 VIEWS Returned 06/03/2010 12:00 AM INJ TRIGGER POINT 1/2 MUSCL Reviewed 06/03/2010 12:00 AM Kenalog per 10Mg [facility]#[address]-95(Niall) Reviewed 12/05/2013 12:00 AM COMPLETE CBC W/AUTO [...] AM Kenalog per 10Mg Im-[facility]#[address]-93(Niall) Reviewed 2014 12:00 AM COMPLETE CBC W/AUTO [...] INJ OCCIPITAL Reviewed 10/01/2010 12:00 AM Quentin Oy-[address]-20 ANNA Reviewed 07/25/2014 12:00 AM THER/PROPH/DIAG INJ [...] 0.60 mg/dLCALCIUM 10.90 mg/ dLeGFR >60 mL/min/1.73 [id number] 45.0 U/L 08/31/2013 10:54 AM GLUCOSE 255.0 [...] 0.40 mg/ dLCALCIUM 10.60 mg/dLeGFR >60 mL/min/1.73 [id number] 369.0 mg/ dLCHOLESTEROL 153.0 mg/dLHDL 26.0 mg/dLLDL [...] BILI 0.30 mg/dLCALCIUM 10.0 mg/dLeGFR >60 mL/min/1.73 [id number] YELLOW APPEARANCE CLEAR SPEC GRAV 1.010 pH [...] Not Entered 03/31/2011 05/30/2015 141 Influenza 04/24/2014 [facility] [id number] Intramuscular Left Upper Arm 02/27/2014 01/15/2014 141 Influenza 02/13/2015 [facility] [id number] Intramuscular Left Deltoid 02/13/2015 01/03/2015 140 History [...] Date Medicare Part A Medicare Part A [id number] N/A [facility] Comm [id number] N/A [place] [facility] [employer] [facility] Lead Hand Prog - [facility] Inspecting And Testing Lead Hand Prog - [facility] [id number] May [facility] Comm Plan of [id number] Wednesday, 2012 Medicare Part B Medicare [facility] [id number] Monday, 2000 [place] [facility] [place] [facility] [place] [facility] [place] [facility] [id number] Tuesday, 2009 History of Encounters Visit Date Visit Type Provider 06/02/2015 Office visit Kaylynn Mendez APRN 05/26/2015 Office visit Kaylynn Mendez EXECUTIVE ADMINISTRATIVE ASSISTANT 05/20/2015 Office visit Kaylynn Mendez EXECUTIVE ADMINISTRATIVE ASSISTANT 05/08/2015 Office visit Heena Dumont MD 05/06/2015 Office visit Kaylynn Mendez EXECUTIVE ADMINISTRATIVE ASSISTANT 04/29/2015 Office visit Kaylynn Mendez EXECUTIVE ADMINISTRATIVE ASSISTANT 03/27/2015 Voided Brittni Yanez EXECUTIVE ADMINISTRATIVE ASSISTANT 03/21/2015 Office visit Heena Dumont MD 03/12/2015 Office visit Kaylynn Mendez EXECUTIVE ADMINISTRATIVE ASSISTANT 02/26/2015 Office visit Brittni Yanez EXECUTIVE ADMINISTRATIVE ASSISTANT 02/13/2015 Office visit Heena Dumont MD 01/15/2015 Office visit Brittni Yaenz EXECUTIVE ADMINISTRATIVE ASSISTANT 01/13/2015 Office visit Heena Dumont MD 01/08/[address] Carol Fowler MD 01/01/2015 Office visit Brittni Yanez EXECUTIVE ADMINISTRATIVE ASSISTANT 12/13/2014 Office visit Heena Dumont MD 11/27/2014 Office visit Kaylynn Mendez EXECUTIVE ADMINISTRATIVE ASSISTANT 11/14/2014 Office visit Heena Dumont MD 10/18/2014 Office visit Heena Dumont MD 10/17/2014 [facility] MD 10/09/2014 Office visit Heena Dumont MD 09/25/2014 Office visit Heena Dumont MD 09/17/2014 Office visit Kaylynn Mendez EXECUTIVE ADMINISTRATIVE ASSISTANT 09/04/2014 Office visit Heena Dumont MD 08/28/2014 Office visit Kaylynn Mendez EXECUTIVE ADMINISTRATIVE ASSISTANT 08/23/2014 [facility] John Hoskins MD 08/01/2014 Office visit Kaylynn Mendez EXECUTIVE ADMINISTRATIVE ASSISTANT 07/29/2014 Office visit Heena Dumont MD 07/25/2014 Nurse visit Heena Dumont MD 07/17/2014 Office visit Kaylynn Mendez EXECUTIVE ADMINISTRATIVE ASSISTANT 07/11/2014 Office visit Heena Dumont MD 07/01/2014 Office visit Heena Dumont MD 06/25/2014 Office visit Kaylynn Mendez EXECUTIVE ADMINISTRATIVE ASSISTANT 06/12/2014 Office visit Kaylynn Mendez EXECUTIVE ADMINISTRATIVE ASSISTANT 06/06/2014 Office visit Kaylynn Mendez EXECUTIVE ADMINISTRATIVE ASSISTANT 05/27/2014 Office visit Heena Dumont MD 04/20/2014 Office visit Yesica Falcon EXECUTIVE ADMINISTRATIVE ASSISTANT 03/29/2014 Office visit Na Jones EXECUTIVE ADMINISTRATIVE ASSISTANT 03/15/2014 Office visit Heena Dumont MD 2014 Office visit Heena Dumont MD 2014 [facility] MD 02/27/2014 Nurse visit Henea Dumont MD 02/13/2014 Office visit Lena El EXECUTIVE ADMINISTRATIVE ASSISTANT 02/07/2014 Office visit Heena Dumont MD 02/03/2014 Office visit Na Jones EXECUTIVE ADMINISTRATIVE ASSISTANT 01/30/2014 Office visit Kaylynn Mendez EXECUTIVE ADMINISTRATIVE ASSISTANT 01/24/2014 Office visit Sundeep Russell EXECUTIVE ADMINISTRATIVE ASSISTANT 01/16/2014 Office visit Kaylynn Walker EXECUTIVE ADMINISTRATIVE ASSISTANT 01/10/2014 Nurse visit Kaylynn Andrea EXECUTIVE ADMINISTRATIVE ASSISTANT 01/08/2014 Office visit Kaylynn Walker EXECUTIVE ADMINISTRATIVE ASSISTANT 12/05/2013 Office visit Kaylynn Walker EXECUTIVE ADMINISTRATIVE ASSISTANT 11/21/2013 Office visit Kaylynn Walker EXECUTIVE ADMINISTRATIVE ASSISTANT 10/23/2013 Office visit Brittni Yaenz EXECUTIVE ADMINISTRATIVE ASSISTANT 10/17/2013 Nurse visit Heena Dumont MD 10/12/2013 Office visit Kaylynn Mendez EXECUTIVE ADMINISTRATIVE ASSISTANT 10/02/2013 Office visit Heena Dumont MD 09/20/2013 Nurse visit Kaylynn Mendez EXECUTIVE ADMINISTRATIVE ASSISTANT 09/20/2013 Voided Heena Dumont MD 09/14/2013 Office visit Kaylynn Mendez EXECUTIVE ADMINISTRATIVE ASSISTANT 09/05/2013 Office visit Sundeep Russell EXECUTIVE ADMINISTRATIVE ASSISTANT 09/04/2013 Nurse visit Kaylynn Mendez EXECUTIVE ADMINISTRATIVE ASSISTANT 08/31/2013 Office visit Kaylynn Mendez EXECUTIVE ADMINISTRATIVE ASSISTANT 08/23/2013 Office visit Heena Dumont MD 08/10/2013 Office visit Kaylynn Mendez EXECUTIVE ADMINISTRATIVE ASSISTANT 07/25/2013 Office visit Kaylynn Walker EXECUTIVE ADMINISTRATIVE ASSISTANT 07/18/2013 Office visit Kaylynn Walker EXECUTIVE ADMINISTRATIVE ASSISTANT 07/12/2013 Office visit Kaylynn Mendez EXECUTIVE ADMINISTRATIVE ASSISTANT 06/28/2013 Nurse visit Kaylynn Mendez EXECUTIVE ADMINISTRATIVE ASSISTANT 06/14/2013 Nurse visit Kaylynn Walker EXECUTIVE ADMINISTRATIVE ASSISTANT 06/08/2013 Nurse visit Kaylynn Walker EXECUTIVE ADMINISTRATIVE ASSISTANT 05/31/2013 Nurse visit Chadd Norris DO 05/18/2013 Office visit Terese Davidson MD 05/16/2013 Office visit Kaylynn Mendez EXECUTIVE ADMINISTRATIVE ASSISTANT 05/09/2013 Office visit Kaylynn Mendez EXECUTIVE ADMINISTRATIVE ASSISTANT 04/29/2013 [facility] Eliseo Hoskins MD 04/25/2013 Nurse visit Kaylynn Walker EXECUTIVE ADMINISTRATIVE ASSISTANT 04/17/2013 Office visit Kaylynn Mendez EXECUTIVE ADMINISTRATIVE ASSISTANT 04/03/2013 Nurse visit Kaylynn Mendez EXECUTIVE ADMINISTRATIVE ASSISTANT 04/03/2013 Office visit Terese Davidson MD 03/28/2013 Office visit Sundeep Russell EXECUTIVE ADMINISTRATIVE ASSISTANT 03/21/2013 Office visit Kaylynn Mendez EXECUTIVE ADMINISTRATIVE ASSISTANT 03/20/2013 Office visit Terese Davidson MD 03/14/2013 Nurse visit Kaylynn Mendez EXECUTIVE ADMINISTRATIVE ASSISTANT 03/05/2013 Nurse visit Kaylynn Mendez EXECUTIVE ADMINISTRATIVE ASSISTANT 02/19/2013 Office visit Terese Davidson MD 02/16/2013 Nurse visit Kaylynn Mendez EXECUTIVE ADMINISTRATIVE ASSISTANT 02/09/2013 Office visit Sundeep Russell EXECUTIVE ADMINISTRATIVE ASSISTANT 02/08/2013 Nurse visit Kaylynn Mendez EXECUTIVE ADMINISTRATIVE ASSISTANT 02/01/2013 Nurse visit Kaylynn Mendez EXECUTIVE ADMINISTRATIVE ASSISTANT 01/26/2013 Nurse visit Sabrina Mendez STRAND GALVANIZER 01/25/2013 Office visit Kaylynn Mendez EXECUTIVE ADMINISTRATIVE ASSISTANT 01/22/2013 Office visit Yoan Castaneda MD 01/18/2013 Nurse visit Kaylynn Mendez EXECUTIVE ADMINISTRATIVE ASSISTANT 01/11/2013 Nurse visit Kaylynn Walker EXECUTIVE ADMINISTRATIVE ASSISTANT 01/05/2013 Nurse visit Kaylynn Walker EXECUTIVE ADMINISTRATIVE ASSISTANT 12/29/2012 Office visit Kaylynn Walker EXECUTIVE ADMINISTRATIVE ASSISTANT 11/27/2012 Office visit Kaylynn Mendez EXECUTIVE ADMINISTRATIVE ASSISTANT 11/08/2012 Office visit Odell Tierney MD 11/08/2012 Voided Odell Tierney MD 11/07/2012 Office visit Kaylynn Mendez EXECUTIVE ADMINISTRATIVE ASSISTANT 10/31/2012 [facility] John Hoskins MD 10/31/2012 Office visit Kaylynn Mendez EXECUTIVE ADMINISTRATIVE ASSISTANT 10/19/2012 Office visit Genoveva Ayala EXECUTIVE ADMINISTRATIVE ASSISTANT 10/10/2012 Office visit Kaylynn Mendez EXECUTIVE ADMINISTRATIVE ASSISTANT 10/03/2012 Office visit Kaylynn Mendez EXECUTIVE ADMINISTRATIVE ASSISTANT 09/26/2012 Office visit Kaylynn Mendez EXECUTIVE ADMINISTRATIVE ASSISTANT 09/06/2012 Office visit Kaylynn Mendez EXECUTIVE ADMINISTRATIVE ASSISTANT 09/06/2012 Office visit Odell Tierney MD 08/31/2012 Voided Kaylynn Mendez EXECUTIVE ADMINISTRATIVE ASSISTANT 07/28/2012 Office visit Kaylynn Mendez EXECUTIVE ADMINISTRATIVE ASSISTANT 07/27/2012 [facility] 07/11/2012 Office visit Kaylynn Mendez EXECUTIVE ADMINISTRATIVE ASSISTANT 06/27/2012 [facility] Odell Tierney MD 06/21/2012 Office visit David Joyner DO 06/21/2012 Office visit Odell Tierney MD 06/20/2012 Office visit Brittni Yanez EXECUTIVE ADMINISTRATIVE ASSISTANT 06/06/2012 Office visit Odell Tierney MD 05/03/2012 Office visit Kaylynn Mendez EXECUTIVE ADMINISTRATIVE ASSISTANT 04/28/2012 Office visit Brittni Yanez EXECUTIVE ADMINISTRATIVE ASSISTANT 04/11/2012 Office visit Kaylynn Mendez EXECUTIVE ADMINISTRATIVE ASSISTANT 04/06/2012 [facility] John Hoskins MD 03/30/2012 Office visit Kaylynn Mendez EXECUTIVE ADMINISTRATIVE ASSISTANT 03/15/2012 Office visit Kaylynn Mendez EXECUTIVE ADMINISTRATIVE ASSISTANT 03/15/2012 Office visit Odell Tierney MD 02/09/2012 Office visit Kaylynn Mendez EXECUTIVE ADMINISTRATIVE ASSISTANT 12/23/2011 Office visit Kaylynn Mendez EXECUTIVE ADMINISTRATIVE ASSISTANT 11/02/2011 Office visit Kaylynn Mendez EXECUTIVE ADMINISTRATIVE ASSISTANT 10/14/2011 Office visit Kaylynn Mendez EXECUTIVE ADMINISTRATIVE ASSISTANT 09/27/2011 Office visit Kaylynn Mendez EXECUTIVE ADMINISTRATIVE ASSISTANT 08/19/2011 [facility] MD 08/18/2011 [facility] MD 08/18/2011 Office visit Kaylynn Mendez EXECUTIVE ADMINISTRATIVE ASSISTANT 08/02/2011 Office visit Kaylynn Mendez EXECUTIVE ADMINISTRATIVE ASSISTANT 07/08/2011 Office visit Kaylynn Mendez EXECUTIVE ADMINISTRATIVE ASSISTANT 07/05/2011 Office visit Odell Tierney MD 06/15/2011 Office visit Kaylynn Mendez EXECUTIVE ADMINISTRATIVE ASSISTANT 05/14/2011 Office visit Kaylynn Mendez EXECUTIVE ADMINISTRATIVE ASSISTANT 05/11/2011 Office visit Odell Tierney MD 04/28/2011 Office visit Kaylynn Mendez EXECUTIVE ADMINISTRATIVE ASSISTANT 03/02/2011 Office visit Chadd Norris DO [...]
--- OUTSIDE RECORDS SUMMARY | 2018-05-10 04:01 | XMS REPORT ---
Author Author Kaylynn Mendez Organization [facility] Address [address] [place], [place] [id number] Care Team Providers Care Manager Rail Name Role Phone Kaylynn Mendez PCP Unavailable Allergies and Adverse Reactions Name Reaction Notes Aspirin Methadone Ultram Vicodin Plan of Treatment Planned Activity Comments Planned Date Planned Time Plan/Goal CINE/VID X-RAY THROAT/ESOPH 05/08/2015 12:00 AM COMPREHEN METABOLIC PANEL 09/16/2015 12:00 AM ELECTROCARDIOGRAM COMPLETE 11/13/2015 12:00 AM COMPLETE CBC W/AUTO DIFF WBC 11/24/2015 12:00 AM COMPREHEN METABOLIC PANEL 11/24/2015 12:00 AM CHEST X-RAY 2VW FRONTAL&LATL 11/24/2015 [...] 08/27/2014 use as directed for 99 days D Lo 5-325 mg oral tablet 06/17/2014 06/27/2014 take [...] a day as needed for 30 days zqzncpoe-[id number]-NX 3.5-10,000-1 mg/mL-unit/mL-% otic drops,suspension 201401/08/2015 instill 4 [...] before a meal for 30 days Zithromax Z-Smion 250 mg oral tablet 05/20/2015 05/25/2015 take [...] Reviewed 04/28/2011 12:00 AM Decadron 1 mg [facility]#[id number] (Jr) Reviewed 04/28/2011 12:00 AM Depo-Medrol 80 mg ND#[id number]-Oqomfays Reviewed 09/02/2015 12:00 AM Toradol 60 Mg ND#6347-8003-89 Reviewed 09/02/2015 12:00 AM Phenergan, Up to 50 Mg [facility] Medicaid Reviewed 09/16/2015 12:00 AM Toradol 60 Mg ND#1685-9846-00 Reviewed 09/16/2015 12:00 AM Phenergan Up to 50 mg [facility] Medicare Reviewed 05/11/2011 12:00 AM N BLOCK INJ OCCIPITAL Reviewed 05/11/2011 12:00 AM Kenalog Cc-[address]-20 ANNA Reviewed 11/13/2015 12:00 AM ASSAY OF TROPONIN QUANT Returned 11/13/2015 12:00 AM ASSAY THYROID STIM HORMONE Returned 11/13/2015 12:00 AM COMPLETE CBC W/AUTO DIFF WBC Returned 11/13/2015 12:00 AM METABOLIC PANEL TOTAL CA Returned 11/13/2015 12:00 AM ASSAY OF MAGNESIUM Returned 06/15/2011 12:00 AM COMPLETE CBC W/AUTO DIFF WBC Returned 06/15/2011 12:00 AM COMPREHEN METABOLIC PANEL Returned 07/08/2011 12:00 AM THER/PROPH/DIAG INJ SC/IM Reviewed 07/08/2011 12:00 AM Toradol,15mg [facility]#[id number], [place] Reviewed 07/08/2011 12:00 AM Phenergan 50 Mg Im [facility] 9290-9952-69 ALLIE Hoskins Reviewed 08/02/2011 12:00 AM THER/PROPH/DIAG INJ SC/IM Reviewed 08/02/2011 12:00 AM Decadron 1 mg [facility]#[id number] (Jr) Reviewed 08/02/2011 12:00 AM Depo-Medrol 80 mg ND#[id number]-Lauszwyx Reviewed 09/27/2011 12:00 AM THER/PROPH/DIAG INJ SC/IM Reviewed 09/27/2011 12:00 AM Depo-Medrol 80 mg [facility]#[id number]-Frhrstzu Reviewed 10/14/2011 12:00 AM X-RAY EXAM OF ABDOMEN Returned 10/14/2011 12:00 AM URINALYSIS AUTO W/O SCOPE Reviewed 12/23/2011 12:00 AM THER/PROPH/DIAG INJ SC/IM Reviewed 12/23/2011 12:00 AM Decadron 1 mg [facility]#[id number] (Jr) Reviewed 12/23/2011 12:00 AM Depo-Medrol 80 mg [facility]#[id number]-Avnleebu Reviewed 02/09/2012 12:00 AM THER/PROPH/DIAG INJ SC/IM Reviewed 02/09/2012 12:00 AM Decadron 1 mg [facility]#[id number] (Jr) Reviewed 02/09/2012 12:00 AM Depo-Medrol 80 mg [facility]#[id number]-Iylarrej Reviewed 03/15/2012 12:00 AM N BLOCK INJ OCCIPITAL Reviewed 03/15/2012 12:00 AM Kenalog Ha-[address]-20 ANNA Reviewed 04/11/2012 12:00 AM COMPLETE CBC W/AUTO DIFF WBC Returned 04/11/2012 12:00 AM COMPREHEN METABOLIC PANEL Returned 04/11/2012 12:00 AM LIPID PANEL Returned 04/11/2012 12:00 AM ASSAY THYROID STIM HORMONE Returned 06/20/2012 12:00 AM THER/PROPH/DIAG INJ SC/IM Reviewed 06/20/2012 12:00 AM Decadron, Per 1 Mg ND# [address]-57 Reviewed 06/20/2012 12:00 AM Depo-Medrol, Per 80 Mg [facility]#6886-4756-51 Reviewed 09/06/2012 12:00 AM N BLOCK INJ OCCIPITAL Reviewed 09/06/2012 12:00 AM Kenalog Sy-[address]-20 ANNA Reviewed 09/06/2012 12:00 AM X-RAY EXAM RIBS UNI 2 VIEWS Returned 09/26/2012 12:00 AM THER/PROPH/DIAG INJ SC/IM Reviewed 09/26/2012 12:00 AM Decadron, Per 1 Mg ND# [address]-82 Reviewed 09/26/2012 12:00 AM Depo-Medrol, Per 80 Mg [facility]#2555-5201-49 Reviewed 10/03/2012 12:00 AM URINALYSIS AUTO W/O SCOPE Reviewed 10/03/2012 12:00 AM THER/PROPH/DIAG INJ SC/IM Reviewed 10/03/2012 12:00 AM Toradol 60 Mg [facility]#7679-1930-16 Reviewed 10/03/2012 12:00 AM Phenergan, 25Mg [facility]#3232-5480-14 Reviewed 10/19/2012 12:00 AM N BLOCK INJ OCCIPITAL Reviewed 10/19/2012 12:00 AM Kenalog, Per 10 Mg ND#2215-5462-28 Reviewed 10/19/2012 12:00 AM Toradol 30 Mg [facility]#3908-8671-01 Reviewed 10/19/2012 12:00 AM THER/PROPH/DIAG INJ SC/IM Reviewed 10/31/2012 12:00 AM COMPLETE CBC W/AUTO DIFF WBC Returned 10/31/2012 12:00 AM COMPREHEN METABOLIC PANEL Returned 10/31/2012 12:00 AM LIPID PANEL Returned 11/03/2012 12:[address] THORAX W/O & W/DYE Returned 11/08/2012 12:00 AM N BLOCK INJ OCCIPITAL Reviewed 11/08/2012 12:00 AM Kenalog Re-[address]-20 ANNA Reviewed 11/27/2012 12:00 AM COMPLETE CBC [...] Decadron, Per 1 Mg [facility]# [address]-68 Reviewed 01/25/2013 12:00 AM Depo-Medrol, Per 80 Mg [facility]#7446-1422-15 Reviewed 01/26/2013 12:00 AM IMMUNOTHERAPY INJECTIONS Returned [...] Decadron, Per 1 Mg [facility]# [address]-02 Reviewed 05/16/2013 12:00 AM Depo-Medrol, Per 80 Mg [facility]#0491-9493-77 Reviewed 05/31/2013 12:00 AM IMMUNOTHERAPY INJECTIONS Reviewed 06/08/2013 12:00 AM IMMUNOTHERAPY INJECTIONS Reviewed 06/14/2013 12:00 AM IMMUNOTHERAPY INJECTIONS Reviewed 06/28/2013 12:00 AM IMMUNOTHERAPY INJECTIONS Reviewed 07/12/2013 12:00 AM X-RAY EXAM RIBS UNI 2 VIEWS Returned 07/18/2013 12:00 AM Toradol 60 Mg [facility]#9824-4154-25 Reviewed 07/18/2013 12:00 AM THER/PROPH/DIAG INJ SC/IM Reviewed 08/23/2013 12:00 AM COMPLETE CBC W/AUTO DIFF WBC Reviewed 08/23/2013 12:00 AM COMPREHEN METABOLIC PANEL Reviewed 08/23/2013 12:00 AM LIPID PANEL Reviewed 08/31/2013 12:00 AM X-RAY EXAM OF LOWER LEG Returned 09/04/2013 12:00 AM IMMUNOTHERAPY INJECTIONS Reviewed 09/14/2013 12:00 AM THER/PROPH/DIAG INJ SC/IM Reviewed 09/14/2013 12:00 AM Decadron, Per 1 Mg [facility]# [address]-09 Reviewed 09/14/2013 12:00 AM Depo-Medrol, Per 80 Mg [facility]#2426-1419-97 Reviewed 09/20/2013 12:00 AM IMMUNOTHERAPY INJECTIONS Reviewed [...] INJ OCCIPITAL Reviewed 12/10/2009 12:00 AM Kenalog Vf-[address]-20 ANNA Reviewed 12/16/2009 12:00 AM HIV-1ANTIBODY Reviewed 12/16/2009 12:00 AM COMPLETE CBC W/AUTO DIFF WBC Reviewed 12/16/2009 12:00 AM METABOLIC PANEL TOTAL CA Reviewed 12/16/2009 12:00 AM Type and screen Reviewed 12/16/2009 12:00 AM PROTHROMBIN TIME Reviewed 12/16/2009 12:00 AM THROMBOPLASTIN TIME PARTIAL Reviewed 03/18/2010 12:00 AM DRAIN/INJ JOINT/BURSA W/O US Reviewed 03/18/2010 12:00 AM Kenalog Vc-[address]-20 ANNA Reviewed 11/21/2013 12:00 AM RADEX HAND MINIMUM 3 VIEWS Returned 06/03/2010 12:00 AM INJ TRIGGER POINT 1/2 MUSCL Reviewed 06/03/2010 12:00 AM Kenalog per 10Mg [facility]#[address]-14(Niall) Reviewed 12/05/2013 12:00 AM COMPLETE CBC W/AUTO [...] 12:00 AM Kenalog per 10Mg Im-[facility]#[address]-57(Niall) Reviewed 2014 12:00 AM COMPLETE CBC W/AUTO [...] INJ OCCIPITAL Reviewed 10/01/2010 12:00 AM Kengretta Ve-[address]-20 ANNA Reviewed 07/25/2014 12:00 AM THER/PROPH/DIAG INJ [...] 0.60 mg/dLCALCIUM 10.90 mg/ dLeGFR >60 mL/min/1.73 [id number] 45.0 U/L 08/31/2013 10:54 AM GLUCOSE 255.0 [...] 0.40 mg/ dLCALCIUM 10.60 mg/dLeGFR >60 mL/min/1.73 [id number] 369.0 mg/ dLCHOLESTEROL 153.0 mg/dLHDL 26.0 mg/dLLDL [...] BILI 0.30 mg/dLCALCIUM 10.0 mg/dLeGFR >60 mL/min/1.73 [id number] YELLOW APPEARANCE CLEAR SPEC GRAV 1.010 pH [...] >60 mL/min/1.73mTROPONIN-I AD <0.04 ng/mLMAGNESIUM 2.10 mg/dL History Of Immunizations Name Date Admin Mfg Name Mf Code Trade Name Lot# Route Inj Vis Given Vis Pub CVX Influenza 03/30/2011 Not Entered NE Not Entered Not Entered Not Entered 03/31/2011 05/30/2015 141 Influenza 04/24/2014 sanofi pasteur PMC Fluzone [id number] Intramuscular Left Upper Arm 02/27/2014 01/15/2014 141 Influenza 02/13/2015 sanofi pasteur PMC Fluzone [id number] Intramuscular Left Deltoid 02/13/2015 01/03/2015 140 Tdap 06/06/2015 Gl[employer]oSmDoNanzaK[employer] SKB BOOSTRIX [id number] Intramuscular Left Deltoid 06/06/2015 [...] Start Date Medicare Part A Medicare RHC [id number] N/A [facility] [id number] N/A Medicare Part A Medicare - Lab/Xray [id number] N/A Medicare Part B Medicare Of [place] [id number] Monday, February 28, 2000 [place] [facility] [place] [id number] Tuesday, November 10, 2009 Medicare Part A Medicare Part A [id number] N/A [place] [employer] - RHC [place] [employer] - RHC [id number] May [facility] Comm Plan of [id number] Wednesday, May 30, 2012 History of Encounters Visit Date Visit Type Provider 11/24/2015 Office visit Kaylynn Mendez [employer]OP SUPERINTENDENT 11/18/2015 Office visit Heena Dumont MD 11/03/2015 Office visit Sundeep Russell APRN 10/20/2015 Office visit Kaylynn Mendez [employer] SUPERINTENDENT 09/23/2015 Office visit Kaylynn Mendez [employer] SUPERINTENDENT 09/16/[address] Pepe Figueroa MD 09/02/2015 Office visit Kaylynn Mendez [employer] SUPERINTENDENT 09/01/2015 Office visit Kaylynn Mendez [employer] SUPERINTENDENT 07/30/2015 Office visit Heena Dumont MD 07/15/2015 Office visit Kaylynn Mendez [employer] SUPERINTENDENT 07/04/2015 Office visit Heena Dumont MD 06/06/2015 Office visit Heena Dumont MD 06/06/2015 Office visit Kaylynn Walker [employer] SUPERINTENDENT 06/02/2015 Office visit Kaylynn Walker [employer]ER [employer]OP SUPERINTENDENT 05/26/2015 Office visit Kaylynn Walker METER SHOP SUPERINTENDENT 05/20/2015 Office visit Kaylynn Walker [employer] SUPERINTENDENT 05/08/2015 Office visit Heena Dumont MD 05/06/2015 Office visit Kaylynn Walker [employer] SUPERINTENDENT 04/29/2015 Office visit Kaylynn Walker [employer]ER [employer] SUPERINTENDENT 03/27/2015 Voided Brittni Yanez [employer] SUPERINTENDENT 03/21/2015 Office visit Heena Dumont MD 03/12/2015 Office visit Kaylynn Mendez [employer] SUPERINTENDENT 02/26/2015 Office visit Brittni Yanez [employer] SUPERINTENDENT 02/13/2015 Office visit Heena Dumont MD 01/15/2015 Office visit Brittni Yanez [employer] SUPERINTENDENT 01/13/2015 Office visit Heena Dumont MD 01/08/[address] Carol Fowler MD 01/01/2015 Office visit Brittni Yanez [employer] SUPERINTENDENT 12/13/2014 Office visit Heena Dumont MD 11/27/2014 Office visit Kaylynn Mendez [employer] SUPERINTENDENT 11/14/2014 Office visit Heena Dumont MD 10/18/2014 Office visit Heena Dumont MD 10/17/2014 [facility] MD 10/09/2014 Office visit Heena Dumont MD 09/25/2014 Office visit Heena Dumont MD 09/17/2014 Office visit Kaylynn Mendez [employer] SUPERINTENDENT 09/04/2014 Office visit Heena Dumont MD 08/28/2014 Office visit Kaylynn Mendez [employer] SUPERINTENDENT 08/23/2014 [facility] MD 08/01/2014 Office visit Kaylynn Mendez [employer] SUPERINTENDENT 07/29/2014 Office visit Heena Dumont MD 07/25/2014 Nurse visit Heena Dumont MD 07/17/2014 Office visit Kaylynn Mendez [employer] SUPERINTENDENT 07/11/2014 Office visit Heena Dumont MD 07/01/2014 Office visit Heena Dumont MD 06/25/2014 Office visit Kaylynn Mendez [employer] SUPERINTENDENT 06/12/2014 Office visit Kaylynn Walker [employer] SUPERINTENDENT 06/06/2014 Office visit Kaylynn Walker [employer] SUPERINTENDENT 05/27/2014 Office visit Heena Dumont MD 04/20/2014 Office visit Yesica Falcon [employer] SUPERINTENDENT 03/29/2014 Office visit Na Jones [employer]ER SHOP SUPERINTENDENT 03/15/2014 Office visit Heena Dumont MD 2014 Office visit Heena Dumont MD 2014 [facility] John Hoskins MD 02/27/2014 Nurse visit Heena Dumont MD 02/13/2014 Office visit Lena El [employer] SUPERINTENDENT 02/07/2014 Office visit Heena Dumont MD 02/03/2014 Office visit Na Jones METER [employer]OP SUPERINTENDENT 01/30/2014 Office visit Kaylynn Walker METER [employer] SUPERINTENDENT 01/24/2014 Office visit Sundeep Russell [employer]ER [employer]OP SUPERINTENDENT 01/16/2014 Office visit Kaylynn Walker METER SHOP SUPERINTENDENT 01/10/2014 Nurse visit Kaylynn Walker METER SHOP SUPERINTENDENT 01/08/2014 Office visit Kaylynn Walker METER [employer]OP SUPERINTENDENT 12/05/2013 Office visit Kaylynn Walker METER SHOP SUPERINTENDENT 11/21/2013 Office visit Kaylynn Walker METER SHOP SUPERINTENDENT 10/23/2013 Office visit Brittni Yanez METER SHOP SUPERINTENDENT 10/17/2013 Nurse visit Heena Dmuont MD 10/12/2013 Office visit Kaylynn Walker [employer] SUPERINTENDENT 10/02/2013 Office visit Heena Dumont MD 09/20/2013 Nurse visit Kaylynn Mendez [employer] SUPERINTENDENT 09/20/2013 Voided Heena Dumont MD 09/14/2013 Office visit Kaylynn Walker [employer] SUPERINTENDENT 09/05/2013 Office visit Sundeep Russell METER SHOP SUPERINTENDENT 09/04/2013 Nurse visit Kaylynn Walker METER SHOP SUPERINTENDENT 08/31/2013 Office visit Kaylynn Walker METER SH[employer] SUPERINTENDENT 08/23/2013 Office visit Heena Dumont MD 08/10/2013 Office visit Kaylynn Walker [employer] SUPERINTENDENT 07/25/2013 Office visit Kaylynn Walker METER SHOP SUPERINTENDENT 07/18/2013 Office visit Kaylynn Walker METER SHOP SUPERINTENDENT 07/12/2013 Office visit Kaylynn Walker METER SHOP SUPERINTENDENT 06/28/2013 Nurse visit Kaylynn Walker METER SHOP SUPERINTENDENT 06/14/2013 Nurse visit Kaylynn Walker METER [employer]OP SUPERINTENDENT 06/08/2013 Nurse visit Kaylynn Walker METER [employer] SUPERINTENDENT 05/31/2013 Nurse visit Chadd Norris DO 05/18/2013 Office visit Terese Davidson MD 05/16/2013 Office visit Kaylynn Mendez MET[employer] SUPERINTENDENT 05/09/2013 Office visit Kaylynn Walker METER SHOP SUPERINTENDENT 04/29/2013 [facility] John Hoskins MD 04/25/2013 Nurse visit Kaylynn Walker METER SHOP SUPERINTENDENT 04/17/2013 Office visit Kaylynn Walker METER SHOP SUPERINTENDENT 04/03/2013 Nurse visit Kaylynn Mendez METER SHOP SUPERINTENDENT 04/03/2013 Office visit Terese Davidson MD 03/28/2013 Office visit Sundeep Russell METER SHOP SUPERINTENDENT 03/21/2013 Office visit Kaylynn Mendez METER SHOP SUPERINTENDENT 03/20/2013 Office visit Terese Davidson MD 03/14/2013 Nurse visit Kaylynn Mendez METER SHOP SUPERINTENDENT 03/05/2013 Nurse visit Kaylynn Mendez METER [employer]OP SUPERINTENDENT 02/19/2013 Office visit Terese Davidson MD 02/16/2013 Nurse visit Kaylynn Andrea METER [employer]OP SUPERINTENDENT 02/09/2013 Office visit Sundeep Russell METER SHOP SUPERINTENDENT 02/08/2013 Nurse visit Kaylynn Andrea METER SHOP SUPERINTENDENT 02/01/2013 Nurse visit Kaylynn Walker METER SHOP SUPERINTENDENT 01/26/2013 Nurse visit Sabrina Andrea ACCORDION TUNER 01/25/2013 Office visit Kaylynn Mendez [employer] SUPERINTENDENT 01/22/2013 Office visit Yoan Castaneda MD 01/18/2013 Nurse visit Kaylynn Walker METER [employer]OP SUPERINTENDENT 01/11/2013 Nurse visit Kaylynn Walker METER SHOP SUPERINTENDENT 01/05/2013 Nurse visit Kaylynn Walker METER SHOP SUPERINTENDENT 12/29/2012 Office visit Kaylynn Andrea METER SHOP SUPERINTENDENT 11/27/2012 Office visit Kaylynn Mendez METER [employer] SUPERINTENDENT 11/08/2012 Office visit Odell Tierney MD 11/08/2012 Voided Odell Tierney MD 11/07/2012 Office visit Kaylynn Mendez [employer] SUPERINTENDENT 10/31/2012 [facility] John Hoskins MD 10/31/2012 Office visit Kaylynn Mendez METER [employer]OP SUPERINTENDENT 10/19/2012 Office visit Genoveva Ayala METER SHOP SUPERINTENDENT 10/10/2012 Office visit Kaylynn Mendez METER SHOP SUPERINTENDENT 10/03/2012 Office visit Kaylynn Mendez METER SHOP SUPERINTENDENT 09/26/2012 Office visit Kaylynn Mendez METER SHOP SUPERINTENDENT 09/06/2012 Office visit Kaylynn Mendez METER SHOP SUPERINTENDENT 09/06/2012 Office visit Odell Tierney MD 08/31/2012 Voided Kaylynn Mendez [employer] SUPERINTENDENT 07/28/2012 Office visit Kaylynn Mendez METER SHOP SUPERINTENDENT 07/27/2012 Office visit David Joyner DO 07/20/2012 [facility] David Joyner DO 07/13/2012 [facility] David Joyner DO 07/11/2012 Office visit Kaylynn Mendez METER [employer] SUPERINTENDENT 06/27/2012 [facility] Odell Tierney MD 06/21/2012 Office visit David Joyner DO 06/21/2012 Office visit Odell Tierney MD 06/20/2012 Office visit Brittni Yanez METER SHOP SUPERINTENDENT 06/06/2012 Office visit Odell Tierney MD 05/03/2012 Office visit Kaylynn Mendez METER SHOP SUPERINTENDENT 04/28/2012 Office visit Brittni Yanez METER SHOP SUPERINTENDENT 04/11/2012 Office visit Kaylynn Mendez METER SHOP SUPERINTENDENT 04/06/2012 [facility] John Hoskins MD 03/30/2012 Office visit Kaylynn Mendez METER SHOP SUPERINTENDENT 03/15/2012 Office visit Kaylynn Mendez METER SHOP SUPERINTENDENT 03/15/2012 Office visit Odell Tierney MD 02/09/2012 Office visit Kaylynn Mendez METER SHOP SUPERINTENDENT 12/23/2011 Office visit Kaylynn Mendez METER SHOP SUPERINTENDENT 11/02/2011 Office visit Kaylynn Mendez METER SHOP SUPERINTENDENT 10/14/2011 Office visit Kaylynn Mendez METER SHOP SUPERINTENDENT 09/27/2011 Office visit Kaylynn Mendez METER SHOP SUPERINTENDENT 08/19/2011 [facility] MD 08/18/2011 [facility] Hos[facility] MD 08/18/2011 Office visit Kaylynn Mendez METER SHOP SUPERINTENDENT 08/02/2011 Office visit Kaylynn Mendez METER SHOP SUPERINTENDENT 07/08/2011 Office visit Kaylynn Mendez METER SHOP SUPERINTENDENT 07/05/2011 Office visit Odell Tierney MD 06/15/2011 Office visit Kaylynn Mendez METER SHOP SUPERINTENDENT 05/14/2011 Office visit Kaylynn Mendez METER SHOP SUPERINTENDENT 05/11/2011 Office visit Odell Tierney MD 04/28/2011 Office visit Kaylynn Andrea METER SHOP SUPERINTENDENT 03/02/2011 Office visit Chadd Norris DO 02/17/2011 [...]
--- OUTSIDE RECORDS SUMMARY | 2018-05-10 04:11 | XMS REPORT ---
Author Kaylynn Lyles Organization [facility] Address [address] [place], [place] [id number] Care Team Providers Care Battery Hand Name Role Phone Kaylynn Mendez PCP Unavailable [...] 08/27/2014 use as directed for 99 days [place] 5-325 mg oral tablet 06/17/2014 06/27/2014 take [...] a day as needed for 30 days [id number] 3.5-10,000-1 mg/mL-unit/mL-% otic drops,suspension 201401/08/2015 instill 4 [...] Reviewed 04/28/2011 12:00 AM Decadron 1 mg ND#[id number] (Jr) Reviewed 04/28/2011 12:00 AM Depo-Medrol 80 mg NDC#[id number]-Blmiubep Reviewed 09/02/2015 12:00 AM Toradol 60 Mg ND#2746-4500-20 Reviewed 09/02/2015 12:00 AM Phenergan, Up to 50 Mg [facility] Medicaid Reviewed 05/11/2011 12:00 AM N BLOCK INJ OCCIPITAL Reviewed 05/11/2011 12:00 AM Kenalog Jo-[address]-20 ANNA Reviewed 06/15/2011 12:00 AM COMPLETE CBC W/AUTO DIFF WBC Returned 06/15/2011 12:00 AM COMPREHEN METABOLIC PANEL Returned 07/08/2011 12:00 AM THER/PROPH/DIAG INJ SC/IM Reviewed 07/08/2011 12:00 AM Toradol,15mg ND#[id number], Brunildaer Reviewed 07/08/2011 12:00 AM Phenergan 50 Mg Im [facility] 3205-3060-13 [place] Reviewed 08/02/2011 12:00 AM THER/PROPH/DIAG INJ SC/IM Reviewed 08/02/2011 12:00 AM Decadron 1 mg ND#[id number] (Jr) Reviewed 08/02/2011 12:00 AM Depo-Medrol 80 mg ND#[id number]-Wpwkhpdw Reviewed 09/27/2011 12:00 AM THER/PROPH/DIAG INJ SC/IM Reviewed 09/27/2011 12:00 AM Depo-Medrol 80 mg NDC#[id number]-Pxwlzoxu Reviewed 10/14/2011 12:00 AM X-RAY EXAM OF ABDOMEN Returned 10/14/2011 12:00 AM URINALYSIS AUTO W/O SCOPE Reviewed 12/23/2011 12:00 AM THER/PROPH/DIAG INJ SC/IM Reviewed 12/23/2011 12:00 AM Decadron 1 mg NDC#[id number] (Jr) Reviewed 12/23/2011 12:00 AM Depo-Medrol 80 mg NDC#[id number]-Qaciwkbb Reviewed 02/09/2012 12:00 AM THER/PROPH/DIAG INJ SC/IM Reviewed 02/09/2012 12:00 AM Decadron 1 mg ND#[id number] (Jr) Reviewed 02/09/2012 12:00 AM Depo-Medrol 80 mg NDC#[id number]-Zvysnitu Reviewed 03/15/2012 12:00 AM N BLOCK INJ OCCIPITAL Reviewed 03/15/2012 12:00 AM Kenalog Ho-[address]-20 ANNA Reviewed 04/11/2012 12:00 AM COMPLETE CBC W/AUTO DIFF WBC Returned 04/11/2012 12:00 AM COMPREHEN METABOLIC PANEL Returned 04/11/2012 12:00 AM LIPID PANEL Returned 04/11/2012 12:00 AM ASSAY THYROID STIM HORMONE Returned 06/20/2012 12:00 AM THER/PROPH/DIAG INJ SC/IM Reviewed 06/20/2012 12:00 AM Decadron, Per 1 Mg ND# [address]-35 Reviewed 06/20/2012 12:00 AM Depo-Medrol, Per 80 Mg ND#4402-7643-85 Reviewed 09/06/2012 12:00 AM N BLOCK INJ OCCIPITAL Reviewed 09/06/2012 12:00 AM Kenalog Lr-[address]-20 ANNA Reviewed 09/06/2012 12:00 AM X-RAY EXAM RIBS UNI 2 VIEWS Returned 09/26/2012 12:00 AM THER/PROPH/DIAG INJ SC/IM Reviewed 09/26/2012 12:00 AM Decadron, Per 1 Mg ND# [address]-88 Reviewed 09/26/2012 12:00 AM Depo-Medrol, Per 80 Mg ND#6207-0473-01 Reviewed 10/03/2012 12:00 AM URINALYSIS AUTO W/O SCOPE Reviewed 10/03/2012 12:00 AM THER/PROPH/DIAG INJ SC/IM Reviewed 10/03/2012 12:00 AM Toradol 60 Mg ND#0398-1447-00 Reviewed 10/03/2012 12:00 AM Phenergan, 25Mg ND#2594-2274-11 Reviewed 10/19/2012 12:00 AM N BLOCK INJ OCCIPITAL Reviewed 10/19/2012 12:00 AM Kenalog, Per 10 Mg ND#2856-9413-39 Reviewed 10/19/2012 12:00 AM Toradol 30 Mg [facility]#1377-0085-64 Reviewed 10/19/2012 12:00 AM THER/PROPH/DIAG INJ SC/IM Reviewed 10/31/2012 12:00 AM COMPLETE CBC W/AUTO DIFF WBC Returned 10/31/2012 12:00 AM COMPREHEN METABOLIC PANEL Returned 10/31/2012 12:00 AM LIPID PANEL Returned 11/03/2012 12:[address] THORAX W/O & W/DYE Returned 11/08/2012 12:00 AM N BLOCK INJ OCCIPITAL Reviewed 11/08/2012 12:00 AM Kenalog Tz-[address]-20 ANNA Reviewed 11/27/2012 12:00 AM COMPLETE CBC [...] 1 Mg [facility]# [address]-59 Reviewed 01/25/2013 12:00 AM Depo-Medrol, Per 80 Mg [facility]#5194-5311-48 Reviewed 01/26/2013 12:00 AM IMMUNOTHERAPY INJECTIONS Returned [...] 1 Mg [facility]# [address]-55 Reviewed 05/16/2013 12:00 AM Depo-Medrol, Per 80 Mg [facility]#3927-3644-63 Reviewed 05/31/2013 12:00 AM IMMUNOTHERAPY INJECTIONS Reviewed 06/08/2013 12:00 AM IMMUNOTHERAPY INJECTIONS Reviewed 06/14/2013 12:00 AM IMMUNOTHERAPY INJECTIONS Reviewed 06/28/2013 12:00 AM IMMUNOTHERAPY INJECTIONS Reviewed 07/12/2013 12:00 AM X-RAY EXAM RIBS UNI 2 VIEWS Returned 07/18/2013 12:00 AM Toradol 60 Mg [facility]#3698-2782-59 Reviewed 07/18/2013 12:00 AM THER/PROPH/DIAG INJ SC/IM [...] 1 Mg [facility]# [address]-69 Reviewed 09/14/2013 12:00 AM Depo-Medrol, Per 80 Mg [facility]#4054-6532-10 Reviewed 09/20/2013 12:00 AM IMMUNOTHERAPY INJECTIONS Reviewed [...] INJ OCCIPITAL Reviewed 12/10/2009 12:00 AM Kenalog Vc-[address]-20 ANNA Reviewed 12/16/2009 12:00 AM HIV-1ANTIBODY Reviewed 12/16/2009 12:00 AM COMPLETE CBC W/AUTO DIFF WBC Reviewed 12/16/2009 12:00 AM METABOLIC PANEL TOTAL CA Reviewed 12/16/2009 12:00 AM Type and screen Reviewed 12/16/2009 12:00 AM PROTHROMBIN TIME Reviewed 12/16/2009 12:00 AM THROMBOPLASTIN TIME PARTIAL Reviewed 03/18/2010 12:00 AM DRAIN/INJ JOINT/BURSA W/O US Reviewed 03/18/2010 12:00 AM Kenalog Nt-[address]-20 ANNA Reviewed 11/21/2013 12:00 AM RADEX HAND MINIMUM 3 VIEWS Returned 06/03/2010 12:00 AM INJ TRIGGER POINT 1/2 MUSCL Reviewed 06/03/2010 12:00 AM Kenalog per 10Mg -[facility]#[address]-26(Niall) Reviewed 12/05/2013 12:00 AM COMPLETE CBC W/AUTO [...] Reviewed 07/23/2010 12:00 AM Kenalog per 10Mg Im-[facility]#[address]-03(Niall) Reviewed 2014 12:00 AM COMPLETE CBC W/AUTO [...] INJ OCCIPITAL Reviewed 10/01/2010 12:00 AM Kenalog Ms-[address]-20 ANNA Reviewed 07/25/2014 12:00 AM THER/PROPH/DIAG INJ [...] 4.14 HGB 13.10 g/dLHCT 39.90 %MCV 96.0 [facility] 31.60 pgHC 32.80 g/dLRDW CV 13.70 %MPV 11.70 fLPLT [...] 0.60 mg/dLCALCIUM 10.90 mg/ dLeGFR >60 mL/min/1.73 [id number] 45.0 U/L 08/31/2013 10:54 AM GLUCOSE 255.0 [...] 0.40 mg/ dLCALCIUM 10.60 mg/dLeGFR >60 mL/min/1.73 [id number] 369.0 mg/ dLCHOLESTEROL 153.0 mg/dLHDL 26.0 mg/dLLDL [...] BILI 0.30 mg/dLCALCIUM 10.0 mg/dLeGFR >60 mL/min/1.73 [id number] YELLOW APPEARANCE CLEAR SPEC GRAV 1.010 pH 5.5 PROTEIN NEGATIVE GLUCOSE NEGATIVE KETONE NEGATIVE BILIRUBIN NEGATIVE BLOOD NEGATIVE NITRITE NEGATIVE LEUK SCREEN NEGATIVE HGB A1C 6.30 %Est Avg Glucose 134.1 mg/dLMICROALBUMIN UR <0.5 MG/DL 02/13/2015 4:38 PM RMSF, IgG, EIA Negative [facility] [...] 141 Influenza 04/24/2014 sanofi pasteur PMC Fluzone [id number] Intramuscular Left Upper Arm 02/27/2014 01/15/2014 141 Influenza 02/13/2015 sanofi pasteur PMC Fluzone [id number] Intramuscular Left Deltoid 02/13/2015 01/03/2015 140 Tdap 06/06/2015 GlaxoSmSmadexKline SKB BOOSTRIX [id number] Intramuscular Left Deltoid 06/06/2015 [...] chronic, left Feb 12 2014 4:22PM Vertigo Jul 11 2014 4:22PM [...] asthma without complication Sep 01 2015 10:54AM Payers Insurance Name Company Name Plan Name Plan Number Policy Number Policy Group Number Start Date Medicare Part A Medicare Part A [employer] [id number] N/A [facility] Comm [id number] N/A Medicare Part B Medicare [facility] [id number] Monday, 2000 [place] [employer] [place] [employer] [id number] Tuesday, 2009 Medicare Part A Medicare Part A [id number] N/A [place] [employer] - [employer] [place] [employer] - [employer] [id number] May [facility] Comm Plan of [id number] Wednesday, 2012 History of Encounters Visit Date Visit Type Provider 09/02/2015 Office visit Kaylynn Mendez [employer]ER BELT [employer]ER 09/01/2015 Office visit Kaylynn Mendez LEATHER BELT SH[employer]ER 07/30/2015 Office visit Heena Dumont MD 07/15/2015 Office visit Kaylynn Mendez LE[employer]ER BELT SHAPER 07/04/2015 Office visit Heena Dumont MD 06/06/2015 Office visit Heena Dumont MD 06/06/2015 Office visit Kaylynn Mendez LEATHER BELT SHAPER 06/02/2015 Office visit Kaylynn Walker LEATHER BELT SHAPER 05/26/2015 Office visit Kaylynn Walker LEATHER BELT SHAPER 05/20/2015 Office visit Kaylynn Mendez LEATHER BELT SHAPER 05/08/2015 Office visit Heena Dumont MD 05/06/2015 Office visit Kaylynn Mendez LEATHER BELT SHAPER 04/29/2015 Office visit Kaylynn Mendez LEATHER BELT SHAPER 03/27/2015 Voided Brittni Yanez LEATHER BELT SHAPER 03/21/2015 Office visit Heean Dumont MD 03/12/2015 Office visit Kaylynn Mendez LEATHER BELT SHAPER 02/26/2015 Office visit Brittni Yanez LEATHER BELT SHAPER 02/13/2015 Office visit Heena Dumont MD 01/15/2015 Office visit Brittni Yanez LEATHER BELT SHAPER 01/13/2015 Office visit Heena Dumont MD 01/08/[address] Carol Fowler MD 01/01/2015 Office visit Brittni Yanez LE[employer]ER BELT SH[employer]ER 12/13/2014 Office visit Heena Dumont MD 11/27/2014 Office visit Kaylynn Mendez LEATHER BELT SHAPER 11/14/2014 Office visit Heena Dumont MD 10/18/2014 Office visit Heena Dumont MD 10/17/2014 Hospital John Hoskins MD 10/09/2014 Office visit Heena Dumont MD 09/25/2014 Office visit Heena Dumont MD 09/17/2014 Office visit Kaylynn Mendez LEATHER BELT SHAPER 09/04/2014 Office visit Heena Dumont MD 08/28/2014 Office visit Kaylynn Mendez LEATHER BELT SHAPER 08/23/2014 Hospital John Hoskins MD 08/01/2014 Office visit Kaylynn Mendez LE[employer]ER BELT SH[employer]ER 07/29/2014 Office visit Heena Dumont MD 07/25/2014 Nurse visit Heena Dumont MD 07/17/2014 Office visit Kaylynn Mendez LE[employer]ER BELT SHAPER 07/11/2014 Office visit Heena Dumont MD 07/01/2014 Office visit Heena Dumont MD 06/25/2014 Office visit Kaylynn Mendez LEATHER BELT SHAPER 06/12/2014 Office visit Kaylynn Mendez LEATHER BELT SHAPER 06/06/2014 Office visit Kaylynn Mendez LEATHER BELT SHAPER 05/27/2014 Office visit Heena Dumont MD 04/20/2014 Office visit Yesica Falcon LEATHER BELT SH[employer]ER 03/29/2014 Office visit Na Jones LEATHER BELT SHAPER 03/15/2014 Office visit Heena Dumont MD 2014 Office visit Heena Dumont MD 2014 [facility] John Hoskins MD 02/27/2014 Nurse visit Heena Dumont MD 02/13/2014 Office visit Lena El LE[employer]ER BELT SH[employer]ER 02/07/2014 Office visit Heena Dumont MD 02/03/2014 Office visit Na Jones LEATHER BELT SHAPER 01/30/2014 Office visit Kaylynn Mendez LEATHER BELT SHAPER 01/24/2014 Office visit Sundeep Russell LEATHER BELT SHAPER 01/16/2014 Office visit Kaylynn Walker LEATHER BELT SHAPER 01/10/2014 Nurse visit Kaylynn Walker LEATHER BELT SHAPER 01/08/2014 Office visit Kaylynn Walker LEATHER BELT SHAPER 12/05/2013 Office visit Kaylynn Walker LEATHER BELT SHAPER 11/21/2013 Office visit Kaylynn Walker LEATHER BELT SHAPER 10/23/2013 Office visit Brittni Yanez LEATHER BELT SHAPER 10/17/2013 Nurse visit Heena Dumont MD 10/12/2013 Office visit Kaylynn Mendez LEATHER BELT SHAPER 10/02/2013 Office visit Heena Dumont MD 09/20/2013 Nurse visit Kaylynn Mendez LEATHER BELT SHAPER 09/20/2013 Voided Heena Dumont MD 09/14/2013 Office visit Kaylynn Walker LEATHER BELT SHAPER 09/05/2013 Office visit Sundeep Russell LEATHER BELT SHAPER 09/04/2013 Nurse visit Kaylynn Walker LEATHER BELT SHAPER 08/31/2013 Office visit Kaylynn Walker LEATHER BELT SHAPER 08/23/2013 Office visit Heena Dumont MD 08/10/2013 Office visit Kaylynn Walker LEATHER BELT SHAPER 07/25/2013 Office visit Kaylynn Walker LEATHER BELT SHAPER 07/18/2013 Office visit Kaylynn Walker LEATHER BELT SHAPER 07/12/2013 Office visit Kaylynn Walker LEATHER BELT SHAPER 06/28/2013 Nurse visit Kaylynn Walker LEATHER BELT SHAPER 06/14/2013 Nurse visit Kaylynn Walker LEATHER BELT SHAPER 06/08/2013 Nurse visit Kaylynn Walker LEATHER BELT SHAPER 05/31/2013 Nurse visit Chadd Norris DO 05/18/2013 Office visit Terese Davidson MD 05/16/2013 Office visit Kaylynn Walker LE[employer]ER BELT SH[employer]ER 05/09/2013 Office visit Kaylynn Walker LEATHER BELT SHAPER 04/29/2013 [facility] John Hoskins MD 04/25/2013 Nurse visit Kaylynn Walker LEATHER BELT SHAPER 04/17/2013 Office visit Kaylynn Walker LEATHER BELT SHAPER 04/03/2013 Nurse visit Kaylynn Andrea LEATHER BELT SHAPER 04/03/2013 Office visit Terese Davidson MD 03/28/2013 Office visit Sundeep Russell LEATHER BELT SHAPER 03/21/2013 Office visit Kaylynn Mendez LEATHER BELT SHAPER 03/20/2013 Office visit Terese Davidson MD 03/14/2013 Nurse visit Kaylynn Mendez LEATHER BELT SHAPER 03/05/2013 Nurse visit Kaylynn Andrea LEATHER BELT SHAPER 02/19/2013 Office visit Terese Davidson MD 02/16/2013 Nurse visit Kaylynn Mendez LEATHER BELT SHAPER 02/09/2013 Office visit Sundeep Russell LEATHER BELT SHAPER 02/08/2013 Nurse visit Kaylynn Andrea LEATHER BELT SHAPER 02/01/2013 Nurse visit Kaylynn Andrea LEATHER BELT SHAPER 01/26/2013 Nurse visit Sabrina Andrea [employer]ORTS EQUIPMENT 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 01/25/2013 Office visit Kaylynn Mendez LEATHER BELT SHAPER 01/22/2013 Office visit Yoan Casatneda MD 01/18/2013 Nurse visit Kaylynn Mendez LEATHER BELT SHAPER 01/11/2013 Nurse visit Kaylynn Andrea LEATHER BELT SHAPER 01/05/2013 Nurse visit Kaylynn Andrea LEATHER BELT SHAPER 12/29/2012 Office visit Kaylynn Mendez LEATHER BELT SHAPER 11/27/2012 Office visit Kaylynn Mendez LEATHER BELT SHAPER 11/08/2012 Office visit Odell Tierney MD 11/08/2012 Voided Odell Tierney MD 11/07/2012 Office visit Kaylynn Mendez LEATHER BELT SHAPER 10/31/2012 [facility] John Hoskins MD 10/31/2012 Office visit Kaylynn Mendez LEATHER BELT SH[employer]ER 10/19/2012 Office visit Genoveva Ayala LEATHER BELT SHAPER 10/10/2012 Office visit Kaylynn Mendez LEATHER BELT SHAPER 10/03/2012 Office visit Kaylynn Mendez LEATHER BELT SHAPER 09/26/2012 Office visit Kaylynn Mendez LEATHER BELT SHAPER 09/06/2012 Office visit Kaylynn Mendez LEATHER BELT SHAPER 09/06/2012 Office visit Odell Tierney MD 08/31/2012 Voided Kaylynn Mendez LEATHER BELT SHAPER 07/28/2012 Office visit Kaylynn Mendez LEATHER BELT SHAPER 07/27/2012 Office visit David Joyner DO 07/20/2012 Hospital David Joyner DO 07/13/2012 Hospital David Joyner DO 07/11/2012 Office visit Kaylynn Mendez LEATHER BELT SHAPER 06/27/2012 [facility] Odell Tierney MD 06/21/2012 Office visit David Joyner DO 06/21/2012 Office visit Odell Tierney MD 06/20/2012 Office visit Brittni Yanez LEATHER BELT SHAPER 06/06/2012 Office visit Odell Tierney MD 05/03/2012 Office visit Kaylynn Mendez LEATHER BELT SHAPER 04/28/2012 Office visit Brittnikitty Yanez LEATHER BELT SHAPER 04/11/2012 Office visit Kaylynn Mendez LEATHER BELT SHAPER 04/06/2012 Hospital John Hoskins MD 03/30/2012 Office visit Kaylynn Menedz LEATHER BELT SHAPER 03/15/2012 Office visit Kaylynn Walker LEATHER BELT SHAPER 03/15/2012 Office visit Odell Tierney MD 02/09/2012 Office visit Kaylynn Walker LEATHER BELT SHAPER 12/23/2011 Office visit Kaylynn Walker LEATHER BELT SHAPER 11/02/2011 Office visit Kaylynn Walker LEATHER BELT SHAPER 10/14/2011 Office visit Kaylynn Walker LEATHER BELT SHAPER 09/27/2011 Office visit Kaylynn Walker LEATHER BELT SHAPER 08/19/2011 Hospital John Hoskins MD 08/18/2011 Hospital John Hoskins MD 08/18/2011 Office visit Kaylynn Mendez LEATHER BELT SHAPER 08/02/2011 Office visit Kaylynn Mendez LEATHER BELT SHAPER 07/08/2011 Office visit Kaylynn Walker LEATHER BELT SHAPER 07/05/2011 Office visit Odell Tierney MD 06/15/2011 Office visit Kaylynn Mendez LEATHER BELT SHAPER 05/14/2011 Office visit Kaylynn Andrea LEATHER BELT SHAPER 05/11/2011 Office visit Odell Tierney MD 04/28/2011 Office visit Kaylynn Mendez LEATHER BELT SHAPER 03/02/2011 Office visit Chadd Norris DO 02/17/2011 [...]
--- OUTSIDE RECORDS SUMMARY | 2018-05-10 04:33 | XMS REPORT ---
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 wgiiedwj-rkcgxulhw-WN 3.5-10,000-1 mg/mL-unit/mL-% otic drops,suspension 201607/23/2016 instill 4 [...] HC BMI BSA BMI Percentile O2 Sat(%) 02/21/2017 3:21:00 PM 126 mmHg 74 mmHg [...] Reviewed 04/28/2011 12:00 AM Decadron 1 mg ND#[id number] (Jr) Reviewed 04/28/2011 12:00 AM Depo-Medrol 80 mg NDC#[id number]-Lulgufbe Reviewed 09/02/2015 12:00 AM Toradol 60 Mg NDC#5032-8208-35 Reviewed 09/02/2015 12:00 AM Phenergan, Up to 50 Mg RHC Medicaid Reviewed 09/16/2015 12:00 AM Toradol 60 Mg NDC#5233-5616-19 Reviewed 09/16/2015 12:00 AM Phenergan Up to 50 mg RHC Medicare Reviewed 05/11/2011 12:00 AM N BLOCK INJ OCCIPITAL Reviewed 05/11/2011 12:00 AM Kenalog Jo-[address]-20 ANNA Reviewed 11/13/2015 12:00 AM ASSAY OF [...] INJ SC/IM Reviewed 07/08/2011 12:00 AM Toradol,15mg ND#[id number], [place] Reviewed 07/08/2011 12:00 AM Phenergan 50 Mg Im [facility] 6209-3346-18 [place] Reviewed 01/21/2016 12:00 AM ECG MONIT/REPRT UP TO 48 HRS Returned 08/02/2011 12:00 AM THER/PROPH/DIAG INJ SC/IM Reviewed 08/02/2011 12:00 AM Decadron 1 mg [facility]#[id number] (Jr) Reviewed 08/02/2011 12:00 AM Depo-Medrol 80 mg ND#[id number]-Nccnjqpg Reviewed 03/05/2016 12:00 AM COMPLETE CBC W/AUTO DIFF WBC Reviewed 03/05/2016 12:00 AM STREP A ASSAY W/OPTIC Reviewed 03/05/2016 12:00 AM C-REACTIVE PROTEIN Reviewed 03/18/2016 12:00 AM [facility] MED[facility] - flu vaccine administration Reviewed 03/18/2016 [...] Reviewed 09/27/2011 12:00 AM Depo-Medrol 80 mg NDC#[id number]-Cbxbrqju Reviewed 09/27/2011 12:00 AM Depo-Medrol 40 mg ND#[id number] Reviewed 07/06/2016 12:00 AM CHEST X-RAY 4/> [...] Reviewed 12/23/2011 12:00 AM Decadron 1 mg NDC#[id number] (Jr) Reviewed 12/23/2011 12:00 AM Depo-Medrol 80 mg NDC#[id number]-Mhrjnylc Reviewed 11/02/2016 11:45 AM URINALYSIS AUTO W/O [...] Reviewed 02/09/2012 12:00 AM Decadron 1 mg NDC#[id number] (Jr) Reviewed 02/09/2012 12:00 AM Depo-Medrol 80 mg ND#[id number]-Pdxvwkvg Reviewed 03/15/2012 12:00 AM N BLOCK INJ OCCIPITAL Reviewed 03/15/2012 12:00 AM Kenalog Ux-[address]-20 ANNA Reviewed 04/11/2012 12:00 AM COMPLETE CBC W/AUTO DIFF WBC Reviewed 04/11/2012 12:00 AM COMPREHEN METABOLIC PANEL Reviewed 04/11/2012 12:00 AM LIPID PANEL Reviewed 04/11/2012 12:00 AM ASSAY THYROID STIM HORMONE Reviewed 04/11/2012 12:00 AM DESTRUCT PREMALG LES 2-14 Reviewed 06/20/2012 12:00 AM THER/PROPH/DIAG INJ SC/IM Reviewed 06/20/2012 12:00 AM Decadron, Per 1 Mg ND# [address]-99 Reviewed 06/20/2012 12:00 AM Depo-Medrol, Per 80 Mg ND#2244-4177-90 Reviewed 09/06/2012 12:00 AM N BLOCK INJ OCCIPITAL Reviewed 09/06/2012 12:00 AM Kenalog My-[address]-20 ANNA Reviewed 09/06/2012 12:00 AM X-RAY EXAM RIBS UNI 2 VIEWS Reviewed 09/26/2012 12:00 AM THER/PROPH/DIAG INJ SC/IM Reviewed 09/26/2012 12:00 AM Decadron, Per 1 Mg ND# [address]-93 Reviewed 09/26/2012 12:00 AM Depo-Medrol, Per 80 Mg ND#3471-5125-96 Reviewed 10/03/2012 12:00 AM URINALYSIS AUTO W/O SCOPE Reviewed 10/03/2012 12:00 AM THER/PROPH/DIAG INJ SC/IM Reviewed 10/03/2012 12:00 AM Toradol 60 Mg ND#3215-1455-38 Reviewed 10/03/2012 12:00 AM Phenergan, 25Mg ND#3660-4399-26 Reviewed 10/19/2012 12:00 AM N BLOCK INJ OCCIPITAL Reviewed 10/19/2012 12:00 AM Kenalog, Per 10 Mg ND#9594-2766-62 Reviewed 10/19/2012 12:00 AM Toradol 30 Mg ND#3408-8267-48 Reviewed 10/19/2012 12:00 AM THER/PROPH/DIAG INJ SC/IM Reviewed 10/31/2012 12:00 AM COMPLETE CBC W/AUTO DIFF WBC Reviewed 10/31/2012 12:00 AM COMPREHEN METABOLIC PANEL Reviewed 10/31/2012 12:00 AM LIPID PANEL Reviewed 10/31/2012 12:00 AM ELECTROCARDIOGRAM COMPLETE Reviewed 11/03/2012 12:[address] THORAX W/O & W/DYE Reviewed 11/08/2012 12:00 AM N BLOCK INJ OCCIPITAL Reviewed 11/08/2012 12:00 AM Kenalog Tg-[address]-20 ANNA Reviewed 11/27/2012 12:00 AM COMPLETE CBC [...] Mg [facility]# [address]-63 Reviewed 01/25/2013 12:00 AM Depo-Medrol, Per 80 Mg [facility]#5664-6483-77 Reviewed 01/26/2013 12:00 AM IMMUNOTHERAPY ONE INJECTION [...] Mg [facility]# [address]-13 Reviewed 05/16/2013 12:00 AM Depo-Medrol, Per 80 Mg [facility]#6005-4908-34 Reviewed 05/31/2013 12:00 AM IMMUNOTHERAPY INJECTIONS Reviewed 06/08/2013 12:00 AM IMMUNOTHERAPY INJECTIONS Reviewed 06/14/2013 12:00 AM IMMUNOTHERAPY INJECTIONS Reviewed 06/28/2013 12:00 AM IMMUNOTHERAPY INJECTIONS Reviewed 07/12/2013 12:00 AM X-RAY EXAM RIBS UNI 2 VIEWS Reviewed 07/18/2013 12:00 AM Toradol 60 Mg [facility]#1432-7093-72 Reviewed 07/18/2013 12:00 AM THER/PROPH/DIAG INJ SC/IM [...] Mg [facility]# [address]-69 Reviewed 09/14/2013 12:00 AM Depo-Medrol, Per 80 Mg [facility]#0889-0401-39 Reviewed 09/20/2013 12:00 AM IMMUNOTHERAPY INJECTIONS Reviewed [...] INJ OCCIPITAL Reviewed 12/10/2009 12:00 AM Kenalog Gw-[address]-20 ANNA Reviewed 12/16/2009 12:00 AM HIV-1ANTIBODY Reviewed 12/16/2009 12:00 AM COMPLETE CBC W/AUTO DIFF WBC Reviewed 12/16/2009 12:00 AM METABOLIC PANEL TOTAL CA Reviewed 12/16/2009 12:00 AM Type and screen Reviewed 12/16/2009 12:00 AM PROTHROMBIN TIME Reviewed 12/16/2009 12:00 AM THROMBOPLASTIN TIME PARTIAL Reviewed 03/18/2010 12:00 AM DRAIN/INJ JOINT/BURSA W/O US Reviewed 03/18/2010 12:00 AM Kenalog Ur-[address]-20 ANNA Reviewed 11/21/2013 12:00 AM RADEX HAND MINIMUM 3 VIEWS Reviewed 06/03/2010 12:00 AM INJ TRIGGER POINT 1/2 MUSCL Reviewed 06/03/2010 12:00 AM Kenalog per 10Mg Im-Nd#[address]-38(Niall) Reviewed 12/05/2013 12:00 AM COMPLETE CBC W/AUTO [...] Reviewed 07/23/2010 12:00 AM Kenalog per 10Mg Im-[facility]#[address]-17(Niall) Reviewed 2014 12:00 AM COMPLETE CBC W/AUTO [...] INJ OCCIPITAL Reviewed 10/01/2010 12:00 AM Kengretta Tc-[address]-20 ANNA Reviewed 07/25/2014 12:00 AM THER/PROPH/DIAG INJ [...] 4.59 HGB 13.90 g/dLHCT 41.60 %MCV 91.0 fLH 30.30 pgMCHC 33.40 g/dLRDW SD 44 RDW [...] Quant,IgM <0.80 RMSF , IgG, EIA Negative [facility] Spotted Fever,IgM 0.51 E. chaffeensis [...] 141 Influenza 04/24/2014 sanofi pasteur PMC Fluzone [id number] Intramuscular Left Upper Arm 02/27/2014 01/15/2014 141 Influenza 02/13/2015 sanofi pasteur PMC Fluzone [id number] Intramuscular Left Deltoid 02/13/2015 01/03/2015 140 Tdap 06/06/2015 [employer]oSmith[employer] SKB BOOSTRIX [id number] Intramuscular Left Deltoid 06/06/2015 07/23/2014 115 Influenza 03/18/2016 sanofi pasteur PMC Fluzone [id number] Intramuscular Left Deltoid 03/17/2016 01/03/2015 141 History [...] 3:25PM Other fatigue Feb 21 2017 3:25PM Payers Insurance Name Company Name Plan Name Plan Number Policy Number Policy Group Number Start Date Medicare RHC Medicare RHC [id number] N/A [facility] - RHC - Community Plan of [facility] RHC Comm [id number] N/A Medicare Part A Medicare - Lab/Xray [id number] N/A Medicare Part B Medicare Of [place] [id number] Monday, February 28, 2000 [place] [employer] [place] [employer] [place] [id number] Tuesday, November 10, 2009 Medicare Part A Medicare Part A [id number] N/A [place] [employer] - RHC [place] [employer] - RHC [id number] [facility] Plan of [facility] Comm Plan of [id number] Wednesday, May 30, 2012 History of Encounters Visit Date Visit Type Provider 02/21/2017 Office visit Heena Dumont MD 02/15/2017 Office visit Heena Dumont MD 02/02/2017 Office visit Heena Dumont MD 01/07/2017 Office visit Riccardo Cardoza MD 01/03/2017 Office visit Heena Dumont MD 12/15/2016 Office visit Kaylynn Mendez REAL TIME ANALYST 12/02/2016 Office visit Heena Dumont MD 11/23/2016 [facility] Eliseo Hoskins MD 11/23/2016 Office visit Kaylynn Mendez REAL TIME ANALYST 11/17/2016 Office visit Kaylynn Mendez REAL TIME ANALYST 11/05/2016 Office visit Riccardo Cardoza MD 11/02/2016 Office visit Heena Dumont MD 10/06/2016 Office visit Kaylynn Mendez REAL TIME ANALYST 09/22/2016 Office visit Heena Dumont MD 09/09/2016 Office visit Kaylynn Mendez REAL TIME ANALYST 08/27/2016 Office visit Riccardo Cardoza MD 08/26/2016 Office visit Heena Dumont MD 07/09/2016 Office visit Riccardo Cardoza MD 07/06/2016 Office visit Heena Dumont MD 06/18/2016 Office visit Kaylynn Mendez REAL TIME ANALYST 06/07/2016 Office visit Sundeep Russell APRN 06/04/2016 Office visit Heena Dumont MD 05/13/2016 Office visit Heena Dumont MD 05/03/2016 Office visit Heena Dumont MD 04/26/2016 Office visit Kaylynn Mendez REAL TIME ANALYST 04/14/2016 Office visit Heena Dumont MD 04/13/2016 Office visit Kaylynn Mendez REAL TIME ANALYST 04/02/2016 Office visit Lena El REAL TIME ANALYST 04/02/2016 Office visit Heena Dumont MD 03/26/2016 Office visit Yesica Falcon REAL TIME ANALYST 03/17/2016 Office visit Heena Dumont MD 03/05/2016 Office visit Kaylynn Mendez REAL TIME ANALYST 02/16/2016 Office visit Heena Dumont MD 02/14/2016 Office visit Na Jones REAL TIME ANALYST 01/16/2016 Office visit Heena Dumont MD 12/16/2015 Office visit Heena Dumont MD 11/24/2015 Office visit Kaylynn Mendez REAL TIME ANALYST 11/18/2015 Office visit Heena Dumont MD 11/03/2015 Office visit Sundeep Russell REAL TIME ANALYST 10/20/2015 Office visit Kaylynn Mendez REAL TIME ANALYST 09/23/2015 Office visit Kaylynn Mendez REAL TIME ANALYST 09/16/[address] Pepe Figueroa MD 09/02/2015 Office visit Kaylynn Mendez REAL TIME ANALYST 09/01/2015 Office visit Kaylynn Mendez REAL TIME ANALYST 07/30/2015 Office visit Heena Dumont MD 07/15/2015 Office visit Kaylynn Mendez REAL TIME ANALYST 07/04/2015 Office visit Heena Dumont MD 06/06/2015 Office visit Heena Dumont MD 06/06/2015 Office visit Kaylynn Mendez REAL TIME ANALYST 06/02/2015 Office visit Kaylynn Mendez REAL TIME ANALYST 05/26/2015 Office visit Kaylynn Mendez REAL TIME ANALYST 05/20/2015 Office visit Kaylynn Mendez REAL TIME ANALYST 05/08/2015 Office visit Heena Dumont MD 05/06/2015 Office visit Kaylynn Mendez REAL TIME ANALYST 04/29/2015 Office visit Kaylynn Mendez REAL TIME ANALYST 03/27/2015 Voided Brittni Yanez REAL TIME ANALYST 03/21/2015 Office visit Heena Dumont MD 03/12/2015 Office visit Kaylynn Mendez REAL TIME ANALYST 02/26/2015 Office visit Brittni Yanez REAL TIME ANALYST 02/13/2015 Office visit Heena Dumont MD 01/15/2015 Office visit Brittni Ynaez REAL TIME ANALYST 01/13/2015 Office visit Heena Dumont MD 01/08/[address] Carol Fowler MD 01/01/2015 Office visit Brittni Yanez REAL TIME ANALYST 12/13/2014 Office visit Heena Dumont MD 11/27/2014 Office visit Kaylynn Mendez REAL TIME ANALYST 11/14/2014 Office visit Heena Dumont MD 10/18/2014 Office visit Heena Dumont MD 10/17/2014 [facility] Eliseo Hoskins MD 10/09/2014 Office visit Heena Dumont MD 09/25/2014 Office visit Heena Dumont MD 09/17/2014 Office visit Kaylynn Mendez REAL TIME ANALYST 09/04/2014 Office visit Heena Dumont MD 08/28/2014 Office visit Kaylynn Mendez REAL TIME ANALYST 08/23/2014 [facility] Eliseo Hoskins MD 08/01/2014 Office visit Kaylynn Mendez REAL TIME ANALYST 07/29/2014 Office visit Heena Dumont MD 07/25/2014 Nurse visit Heena Dumont MD 07/17/2014 Office visit Kaylynn Mendez REAL TIME ANALYST 07/11/2014 Office visit Heena Dumont MD 07/01/2014 Office visit Heena Dumont MD 06/25/2014 Office visit Kaylynn Mendez REAL TIME ANALYST 06/12/2014 Office visit Kaylynn Mendez REAL TIME ANALYST 06/06/2014 Office visit Kaylynn Mendez REAL TIME ANALYST 05/27/2014 Office visit Heena Dumont MD 04/20/2014 Office visit Yesica Falcon REAL TIME ANALYST 03/29/2014 Office visit Na Jones REAL TIME ANALYST 03/15/2014 Office visit Heena Dumont MD 2014 Office visit Heena Dumont MD 2014 [facility] John Hoskins MD 02/27/2014 Nurse visit Heena Dumont MD 02/13/2014 Office visit Lena El REAL TIME ANALYST 02/07/2014 Office visit Heena Dumont MD 02/03/2014 Office visit Na Jones REAL TIME ANALYST 01/30/2014 Office visit Kaylynn Mendez REAL TIME ANALYST 01/24/2014 Office visit Sundeep Russell REAL TIME ANALYST 01/16/2014 Office visit Kaylynn Mendez REAL TIME ANALYST 01/10/2014 Nurse visit Kaylynn Walker REAL TIME ANALYST 01/08/2014 Office visit Kaylynn Walker REAL TIME ANALYST 12/05/2013 Office visit Kaylynn Walker REAL TIME ANALYST 11/21/2013 Office visit Kaylynn Mendez REAL TIME ANALYST 10/23/2013 Office visit Brittni Yanez REAL TIME ANALYST 10/17/2013 Nurse visit Heena Dumont MD 10/12/2013 Office visit Kaylynn Mendez REAL TIME ANALYST 10/02/2013 Office visit Heena Dumont MD 09/20/2013 Nurse visit Kaylynn Mendez REAL TIME ANALYST 09/20/2013 Voided Heena Dumont MD 09/14/2013 Office visit Kaylynn Mendez REAL TIME ANALYST 09/05/2013 Office visit Sundeep Russell REAL TIME ANALYST 09/04/2013 Nurse visit Kaylynn Walker REAL TIME ANALYST 08/31/2013 Office visit Kaylynn Walker REAL TIME ANALYST 08/23/2013 Office visit Heena Dumont MD 08/10/2013 Office visit Kaylynn Walker REAL TIME ANALYST 07/25/2013 Office visit Kaylynn Walker REAL TIME ANALYST 07/18/2013 Office visit Kaylynn Walker REAL TIME ANALYST 07/12/2013 Office visit Kaylynn Walker REAL TIME ANALYST 06/28/2013 Nurse visit Kaylynn Walker REAL TIME ANALYST 06/14/2013 Nurse visit Kaylynn Walker REAL TIME ANALYST 06/08/2013 Nurse visit Kaylynn Walker REAL TIME ANALYST 05/31/2013 Nurse visit Chadd Norris DO 05/18/2013 Office visit Terese Davidson MD 05/16/2013 Office visit Kaylynn Walker REAL TIME ANALYST 05/09/2013 Office visit Kaylynn Mendez REAL TIME ANALYST 04/29/2013 [facility] John Hoskins MD 04/25/2013 Nurse visit Kaylynn Walker REAL TIME ANALYST 04/17/2013 Office visit Kaylynn Walker REAL TIME ANALYST 04/03/2013 Nurse visit Kaylynn Walker REAL TIME ANALYST 04/03/2013 Office visit Terese Davidson MD 03/28/2013 Office visit Sundeep Russell REAL TIME ANALYST 03/21/2013 Office visit Kaylynn Mendez REAL TIME ANALYST 03/20/2013 Office visit Terese Davidson MD 03/14/2013 Nurse visit Kaylynn Walker REAL TIME ANALYST 03/05/2013 Nurse visit Kaylynn Mendez REAL TIME ANALYST 02/19/2013 Office visit Terese Davidson MD 02/16/2013 Nurse visit Kaylynn Walker REAL TIME ANALYST 02/09/2013 Office visit Sundeep Russell REAL TIME ANALYST 02/08/2013 Nurse visit Kaylynn Walker REAL TIME ANALYST 02/01/2013 Nurse visit Kaylynn Walker REAL TIME ANALYST 01/26/2013 Nurse visit Sabrina Mendez SPLICER APPRENTICE 01/25/2013 Office visit Kaylynn Walker REAL TIME ANALYST 01/22/2013 Office visit Yoan Castaneda MD 01/18/2013 Nurse visit Kaylynn Walker REAL TIME ANALYST 01/11/2013 Nurse visit Kaylynn Walker REAL TIME ANALYST 01/05/2013 Nurse visit Kaylynn Walker REAL TIME ANALYST 12/29/2012 Office visit Kaylynn Walker REAL TIME ANALYST 11/27/2012 Office visit Kaylynn Walker REAL TIME ANALYST 11/08/2012 Office visit Odell Tierney MD 11/08/2012 Voided Odell Tierney MD 11/07/2012 Office visit Kaylynn Mendez REAL TIME ANALYST 10/31/2012 [facility] John Hoskins MD 10/31/2012 Office visit Kaylynn Mendez REAL TIME ANALYST 10/19/2012 Office visit Genoveva Ayala REAL TIME ANALYST 10/10/2012 Office visit Kaylynn Mendez REAL TIME ANALYST 10/03/2012 Office visit Kaylynn Mendez REAL TIME ANALYST 09/26/2012 Office visit Kaylynn Menedz REAL TIME ANALYST 09/06/2012 Office visit Kaylynn Mendez REAL TIME ANALYST 09/06/2012 Office visit Odell Tierney MD 08/31/2012 Voided Kaylynn Mendez REAL TIME ANALYST 07/28/2012 Office visit Kaylynn Mendez REAL TIME ANALYST 07/27/2012 Office visit David Ar DO 07/20/2012 Hospital David Joyner DO 07/13/2012 Hospital David Sheriffuman DO 07/11/2012 Office visit Kaylynn Mendez REAL TIME ANALYST 06/27/2012 [facility] Odell Tierney MD 06/21/2012 Office visit David Joyner DO 06/21/2012 Office visit Odell Tierney MD 06/20/2012 Office visit Brittni Yanez REAL TIME ANALYST 06/06/2012 Office visit Odell Tierney MD 05/03/2012 Office visit Kaylynn Mendez REAL TIME ANALYST 04/28/2012 Office visit Brittni Yanez REAL TIME ANALYST 04/11/2012 Office visit Kaylynn Mendez REAL TIME ANALYST 04/06/2012 [facility] John Hoskins MD 03/30/2012 Office visit Kaylynn Mendez REAL TIME ANALYST 03/15/2012 Office visit Kaylynn Mendez REAL TIME ANALYST 03/15/2012 Office visit Odell Tierney MD 02/09/2012 Office visit Kaylynn Mendez REAL TIME ANALYST 12/23/2011 Office visit Kaylynn Mendez REAL TIME ANALYST 11/02/2011 Office visit Kaylynn Mendez REAL TIME ANALYST 10/14/2011 Office visit Kaylynn Mendez REAL TIME ANALYST 09/27/2011 Office visit Kaylynn Mendez REAL TIME ANALYST 08/19/2011 Hospital John Hoskins MD 08/18/2011 [facility] John Hoskins MD 08/18/2011 Office visit Kaylynn Mendez REAL TIME ANALYST 08/02/2011 Office visit Kaylynn Mendez REAL TIME ANALYST 07/08/2011 Office visit Kaylynn Menedz REAL TIME ANALYST 07/05/2011 Office visit Odell Tierney MD 06/15/2011 Office visit Kaylynn Mendez REAL TIME ANALYST 05/14/2011 Office visit Kaylynn Mendez REAL TIME ANALYST 05/11/2011 Office visit Odell Tierney MD 04/28/2011 Office visit Kaylynn Mendez REAL TIME ANALYST 03/02/2011 Office visit Chadd Norris DO [...]
--- OUTSIDE RECORDS SUMMARY | 2018-05-10 04:41 | XMS REPORT ---
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 omxqfsdh-xguwiiddd-TA 3.5-10,000-1 mg/mL-unit/mL-% otic drops,suspension 201607/23/2016 instill 4 [...] F 154.375 lbs 63 in 27.35 kg/m2 1.7642 m 96 % 01/03/2017 2:07:00 PM 112 mmHg 72 mmHg 93 bpm 16 rpm 98.6 F 155 lbs 63 in 27.4567 kg/m 1.77 m2 97 % 12/15/2016 10:45:00 AM [...] Reviewed 04/28/2011 12:00 AM Decadron 1 mg ND#[id number] (Jr) Reviewed 04/28/2011 12:00 AM Depo-Medrol 80 mg ND#[id number]-Zeweqmtu Reviewed 09/02/2015 12:00 AM Toradol 60 Mg NDC#1055-5383-73 Reviewed 09/02/2015 12:00 AM Phenergan, Up to 50 Mg RHC Medicaid Reviewed 09/16/2015 12:00 AM Toradol 60 Mg ND#2410-8258-78 Reviewed 09/16/2015 12:00 AM Phenergan Up to 50 mg RHC Medicare Reviewed 05/11/2011 12:00 AM N BLOCK INJ OCCIPITAL Reviewed 05/11/2011 12:00 AM Kenalog Qz-[address]-20 ANNA Reviewed 11/13/2015 12:00 AM ASSAY OF [...] INJ SC/IM Reviewed 07/08/2011 12:00 AM Toradol,15mg [facility]#[id number], [place] Reviewed 07/08/2011 12:00 AM Phenergan 50 Mg Im Nd 9000-5208-45 [place] Reviewed 01/21/2016 12:00 AM ECG MONIT/REPRT UP TO 48 HRS Returned 08/02/2011 12:00 AM THER/PROPH/DIAG INJ SC/IM Reviewed 08/02/2011 12:00 AM Decadron 1 mg [facility]#[id number] (Jr) Reviewed 08/02/2011 12:00 AM Depo-Medrol 80 mg [facility]#[id number]-Sutoxwap Reviewed 03/05/2016 12:00 AM COMPLETE CBC W/AUTO DIFF WBC Reviewed 03/05/2016 12:00 AM STREP A ASSAY W/OPTIC Reviewed 03/05/2016 12:00 AM C-REACTIVE PROTEIN Reviewed 03/18/2016 12:00 AM [facility] MEDICARE - flu vaccine administration Reviewed [...] Reviewed 09/27/2011 12:00 AM Depo-Medrol 80 mg ND#[id number]-Uhvqzplj Reviewed 09/27/2011 12:00 AM Depo-Medrol 40 mg ND#[id number] Reviewed 07/06/2016 12:00 AM CHEST X-RAY 4/> [...] Reviewed 12/23/2011 12:00 AM Decadron 1 mg NDC#[id number] (Jr) Reviewed 12/23/2011 12:00 AM Depo-Medrol 80 mg NDC#[id number]-Wqqjiibe Reviewed 11/02/2016 11:45 AM URINALYSIS AUTO W/O [...] Reviewed 02/09/2012 12:00 AM Decadron 1 mg NDC#[id number] (Jr) Reviewed 02/09/2012 12:00 AM Depo-Medrol 80 mg NDC#[id number]-Fmpxonuj Reviewed 02/21/2017 12:00 AM CULTURE OTHR SPECIMN AEROBIC Returned 02/21/2017 12:00 AM INFLUENZA ASSAY W/OPTIC Returned 02/23/2017 12:00 AM COMPLETE CBC W/AUTO DIFF WBC Reviewed 02/23/2017 12:00 AM X-RAY EXAM OF KNEE 3 Returned 03/15/2012 12:00 AM N BLOCK INJ OCCIPITAL Reviewed 03/15/2012 12:00 AM Kenalog Ws-[address]-20 ANNA Reviewed 04/11/2012 12:00 AM COMPLETE CBC [...] 06/20/2012 12:00 AM Decadron, Per 1 Mg [facility]# [address]-23 Reviewed 06/20/2012 12:00 AM Depo-Medrol, Per 80 Mg [facility]#5823-7816-31 Reviewed 08/15/2017 12:00 AM COMPLETE CBC W/AUTO DIFF WBC Returned 08/15/2017 12:00 AM COMPREHEN METABOLIC PANEL Returned 08/15/2017 12:00 AM URINALYSIS AUTO W/SCOPE Returned 09/06/2017 12:00 AM RADEX FOOT COMPLETE MINIMUM 3 VIEWS Returned 09/06/2017 12:00 AM X-RAY EXAM RIBS UNI 2 VIEWS Returned 09/06/2012 12:00 AM N BLOCK INJ OCCIPITAL Reviewed 09/06/2012 12:00 AM Kenalog Gq-[address]-20 ANNA Reviewed 09/06/2012 12:00 AM X-RAY EXAM RIBS UNI 2 VIEWS Reviewed 09/26/2012 12:00 AM THER/PROPH/DIAG INJ SC/IM Reviewed 09/26/2012 12:00 AM Decadron, Per 1 Mg ND# [address]-63 Reviewed 09/26/2012 12:00 AM Depo-Medrol, Per 80 Mg ND#6078-0241-42 Reviewed 10/03/2012 12:00 AM URINALYSIS AUTO W/O SCOPE Reviewed 10/03/2012 12:00 AM THER/PROPH/DIAG INJ SC/IM Reviewed 10/03/2012 12:00 AM Toradol 60 Mg ND#8220-5472-76 Reviewed 10/03/2012 12:00 AM Phenergan, 25Mg ND#7489-7732-17 Reviewed 10/19/2012 12:00 AM N BLOCK INJ OCCIPITAL Reviewed 10/19/2012 12:00 AM Kenalog, Per 10 Mg ND#8276-2518-66 Reviewed 10/19/2012 12:00 AM Toradol 30 Mg ND#7981-2179-62 Reviewed 10/19/2012 12:00 AM THER/PROPH/DIAG INJ SC/IM Reviewed 10/31/2012 12:00 AM COMPLETE CBC W/AUTO DIFF WBC Reviewed 10/31/2012 12:00 AM COMPREHEN METABOLIC PANEL Reviewed 10/31/2012 12:00 AM LIPID PANEL Reviewed 10/31/2012 12:00 AM ELECTROCARDIOGRAM COMPLETE Reviewed 11/03/2012 12:[address] THORAX W/O & W/DYE Reviewed 11/08/2012 12:00 AM N BLOCK INJ OCCIPITAL Reviewed 11/08/2012 12:00 AM Kenalog As-[address]-20 ANNA Reviewed 11/27/2012 12:00 AM COMPLETE CBC [...] 01/25/2013 12:00 AM Decadron, Per 1 Mg [facility]# [address]-96 Reviewed 01/25/2013 12:00 AM Depo-Medrol, Per 80 Mg [facility]#0295-4615-09 Reviewed 01/26/2013 12:00 AM IMMUNOTHERAPY ONE INJECTION [...] 05/16/2013 12:00 AM Decadron, Per 1 Mg [facility]# [address]-05 Reviewed 05/16/2013 12:00 AM Depo-Medrol, Per 80 Mg [facility]#0529-9982-38 Reviewed 05/31/2013 12:00 AM IMMUNOTHERAPY INJECTIONS Reviewed 06/08/2013 12:00 AM IMMUNOTHERAPY INJECTIONS Reviewed 06/14/2013 12:00 AM IMMUNOTHERAPY INJECTIONS Reviewed 06/28/2013 12:00 AM IMMUNOTHERAPY INJECTIONS Reviewed 07/12/2013 12:00 AM X-RAY EXAM RIBS UNI 2 VIEWS Reviewed 07/18/2013 12:00 AM Toradol 60 Mg [facility]#3612-3997-27 Reviewed 07/18/2013 12:00 AM THER/PROPH/DIAG INJ SC/IM Reviewed 08/23/2013 12:00 AM COMPLETE CBC W/AUTO DIFF WBC Reviewed 08/23/2013 12:00 AM COMPREHEN METABOLIC PANEL Reviewed 08/23/2013 12:00 AM LIPID PANEL Reviewed 08/31/2013 12:00 AM X-RAY EXAM OF LOWER LEG Reviewed 09/04/2013 12:00 AM IMMUNOTHERAPY INJECTIONS Reviewed 09/14/2013 12:00 AM THER/PROPH/DIAG INJ SC/IM Reviewed 09/14/2013 12:00 AM Decadron, Per 1 Mg [facility]# [address]-92 Reviewed 09/14/2013 12:00 AM Depo-Medrol, Per 80 Mg [facility]#8863-3135-42 Reviewed 09/20/2013 12:00 AM IMMUNOTHERAPY INJECTIONS Reviewed [...] INJ OCCIPITAL Reviewed 12/10/2009 12:00 AM Quentin Hi-[address]-20 ANNA Reviewed 12/16/2009 12:00 AM HIV-1ANTIBODY Reviewed 12/16/2009 12:00 AM COMPLETE CBC W/AUTO DIFF WBC Reviewed 12/16/2009 12:00 AM METABOLIC PANEL TOTAL CA Reviewed 12/16/2009 12:00 AM Type and screen Reviewed 12/16/2009 12:00 AM PROTHROMBIN TIME Reviewed 12/16/2009 12:00 AM THROMBOPLASTIN TIME PARTIAL Reviewed 03/18/2010 12:00 AM DRAIN/INJ JOINT/BURSA W/O US Reviewed 03/18/2010 12:00 AM Kenalog Aj-[address]-20 ANNA Reviewed 11/21/2013 12:00 AM RADEX HAND MINIMUM 3 VIEWS Reviewed 06/03/2010 12:00 AM INJ TRIGGER POINT 1/2 MUSCL Reviewed 06/03/2010 12:00 AM Kenalog per 10Mg [facility]#[address]-71(Niall) Reviewed 12/05/2013 12:00 AM COMPLETE CBC W/AUTO [...] AM Kenalog per 10Mg [facility]#[address]-22(Niall) Reviewed 2014 12:00 AM COMPLETE CBC W/AUTO [...] INJ OCCIPITAL Reviewed 10/01/2010 12:00 AM Kenalog Xq-[address]-20 ANNA Reviewed 07/25/2014 12:00 AM THER/PROPH/DIAG INJ [...] 141 Influenza 04/24/2014 sanofi pasteur PMC FLUZONE [id number] Intramuscular Left Upper Arm 02/27/2014 01/15/2014 141 Influenza 02/13/2015 sanofi pasteur PMC FLUZONE [id number] Intramuscular Left Deltoid 02/13/2015 01/03/2015 140 Tdap 06/06/2015 [employer] SKB BOOSTRIX [id number] Intramuscular Left Deltoid 06/06/2015 07/23/2014 115 Influenza 03/18/2016 sanofi pasteur PMC FLUZONE [id number] Intramuscular Left Deltoid 03/17/2016 01/03/2015 141 History [...] Number Start Date Medicare RHC Medicare RHC [id number] N/A [facility] Comm [id number] N/A Medicare Part A Medicare - Lab/Xray [id number] N/A Medicare Part B Medicare Of [place] [id number] Monday, February 28, 2000 [place] [facility] [place] [id number] Tuesday, November 10, 2009 Medicare Part A Medicare Part A [id number] N/A [place] [employer] - RHC [place] [employer] - RHC [id number] May [facility] Comm Plan of [id number] Wednesday, May 30, 2012 History of Encounters Visit Date Visit Type Provider 09/14/2017 Office visit Heena Dumont MD 09/06/2017 Office visit Kaylynn Mendez APRN 08/15/2017 Office visit Heena Dumont MD 07/18/2017 Office visit Henea Dumont MD 06/28/2017 Office visit 06/28/2017 Office visit Lena El SPECIAL LIBRARIAN 06/24/2017 Office visit Sundeep Russell SPECIAL LIBRARIAN 06/02/2017 Office visit Heena Dumont MD 04/20/2017 Office visit 04/20/2017 Office visit 04/20/2017 Office visit 04/20/2017 Office visit Heena Dumont MD 03/22/2017 Office visit Heena Dumont MD 03/05/2017 Office visit Lena Chaves SPECIAL LIBRARIAN 02/23/2017 Office visit Symone PolkBarbara Marie SPECIAL LIBRARIAN 02/21/2017 Office visit Heena Dumont MD 02/15/2017 Office visit Heena Dumont MD 02/02/2017 Office visit Heena Dumont MD 01/07/2017 Office visit Riccardo Cardoza MD 01/03/2017 Office visit Heena Dumont MD 12/15/2016 Office visit Kaylynn Mendez SPECIAL LIBRARIAN 12/02/2016 Office visit Heena Dumont MD 11/23/2016 [facility] Eliseo Hoskins MD 11/23/2016 Office visit Kaylynn Mendez SPECIAL LIBRARIAN 11/17/2016 Office visit Kaylynn Mendez SPECIAL LIBRARIAN 11/05/2016 Office visit Riccardo Cardoza MD 11/02/2016 Office visit Heena Dumont MD 10/06/2016 Office visit Kaylynn Mendez SPECIAL LIBRARIAN 09/22/2016 Office visit Heena Dumont MD 09/09/2016 Office visit Kaylynn Mendez SPECIAL LIBRARIAN 08/27/2016 Office visit Riccardo Cardoza MD 08/26/2016 Office visit Heena Dumont MD 07/09/2016 Office visit Riccardo Cardoza MD 07/06/2016 Office visit Heena Dumont MD 06/18/2016 Office visit Kaylynn Mendez SPECIAL LIBRARIAN 06/07/2016 Office visit Sundeep Russell SPECIAL LIBRARIAN 06/04/2016 Office visit Heena Dumont MD 05/13/2016 Office visit Heena Dumont MD 05/03/2016 Office visit Heena Dumont MD 04/26/2016 Office visit Kaylynn Mendez SPECIAL LIBRARIAN 04/14/2016 Office visit Heena Dumont MD 04/13/2016 Office visit Kaylynn Mendez SPECIAL LIBRARIAN 04/02/2016 Office visit Lena El SPECIAL LIBRARIAN 04/02/2016 Office visit Heena Dumont MD 03/26/2016 Office visit Yesica Falcon SPECIAL LIBRARIAN 03/17/2016 Office visit Heena Dumont MD 03/05/2016 Office visit Kaylynn Mendez SPECIAL LIBRARIAN 02/16/2016 Office visit Heena Dumont MD 02/14/2016 Office visit Na Jones SPECIAL LIBRARIAN 01/16/2016 Office visit Heena Dumont MD 12/16/2015 Office visit Heena Dumont MD 11/24/2015 Office visit Kaylynn Mendez SPECIAL LIBRARIAN 11/18/2015 Office visit Heena Dumont MD 11/03/2015 Office visit Sundeep Russell SPECIAL LIBRARIAN 10/20/2015 Office visit Kaylynn Mendez SPECIAL LIBRARIAN 09/23/2015 Office visit Kaylynn Mendez SPECIAL LIBRARIAN 09/16/[address] Pepe Figueroa MD 09/02/2015 Office visit Kaylynn Mendez SPECIAL LIBRARIAN 09/01/2015 Office visit Kaylynn Mendez SPECIAL LIBRARIAN 07/30/2015 Office visit Heena Dumont MD 07/15/2015 Office visit Kaylynn Mendez SPECIAL LIBRARIAN 07/04/2015 Office visit Heena Dumont MD 06/06/2015 Office visit Heena Dumont MD 06/06/2015 Office visit Kaylynn Mendez SPECIAL LIBRARIAN 06/02/2015 Office visit Kaylynn Mendez SPECIAL LIBRARIAN 05/26/2015 Office visit Kaylynn Mendez SPECIAL LIBRARIAN 05/20/2015 Office visit Kaylynn Mendez SPECIAL LIBRARIAN 05/08/2015 Office visit Heena Dumont MD 05/06/2015 Office visit Kaylynn Mendez SPECIAL LIBRARIAN 04/29/2015 Office visit Kaylynn Mendez SPECIAL LIBRARIAN 03/27/2015 Voided Brittni Yanez SPECIAL LIBRARIAN 03/21/2015 Office visit Heena Dumont MD 03/12/2015 Office visit Kaylynn Mendez SPECIAL LIBRARIAN 02/26/2015 Office visit Brittni Yanez SPECIAL LIBRARIAN 02/13/2015 Office visit Heena Dumont MD 01/15/2015 Office visit Brittni Yanez SPECIAL LIBRARIAN 01/13/2015 Office visit Heena Dumont MD 01/08/[address] Carol Fowler MD 01/01/2015 Office visit Brittni Yanez SPECIAL LIBRARIAN 12/13/2014 Office visit Heena Dumont MD 11/27/2014 Office visit Kaylynn Mendez SPECIAL LIBRARIAN 11/14/2014 Office visit Heena Dumont MD 10/18/2014 Office visit Heena Dumont MD 10/17/2014 [facility] John Hoskins MD 10/09/2014 Office visit Heena Dumont MD 09/25/2014 Office visit Heena Dumont MD 09/17/2014 Office visit Kaylynn Mendez SPECIAL LIBRARIAN 09/04/2014 Office visit Heena Dumont MD 08/28/2014 Office visit Kaylynn Mendez SPECIAL LIBRARIAN 08/23/2014 [facility] John Hoksins MD 08/01/2014 Office visit Kaylynn Mendez SPECIAL LIBRARIAN 07/29/2014 Office visit Heena Dumont MD 07/25/2014 Nurse visit Heena Dumont MD 07/17/2014 Office visit Kaylynn Mendez SPECIAL LIBRARIAN 07/11/2014 Office visit Heena Dumont MD 07/01/2014 Office visit Heena Dumont MD 06/25/2014 Office visit Kaylynn Walker SPECIAL LIBRARIAN 06/12/2014 Office visit Kaylynn Walker SPECIAL LIBRARIAN 06/06/2014 Office visit Kaylynn Mendez SPECIAL LIBRARIAN 05/27/2014 Office visit Heena Dumont MD 04/20/2014 Office visit Yesica Falcon SPECIAL LIBRARIAN 03/29/2014 Office visit Na Jones SPECIAL LIBRARIAN 03/15/2014 Office visit Heena Dumont MD 2014 Office visit Heena Dumont MD 2014 [facility] John Hoskins MD 02/27/2014 Nurse visit Heena Dumont MD 02/13/2014 Office visit Lena El SPECIAL LIBRARIAN 02/07/2014 Office visit Heena Dumont MD 02/03/2014 Office visit Na Jones SPECIAL LIBRARIAN 01/30/2014 Office visit Kaylynn Mendez SPECIAL LIBRARIAN 01/24/2014 Office visit Sundeep Russell SPECIAL LIBRARIAN 01/16/2014 Office visit Kaylynn Mendez SPECIAL LIBRARIAN 01/10/2014 Nurse visit Kaylynn Mendez SPECIAL LIBRARIAN 01/08/2014 Office visit Kaylynn Mendez SPECIAL LIBRARIAN 12/05/2013 Office visit Kaylynn Mendez SPECIAL LIBRARIAN 11/21/2013 Office visit Kaylynn Mendez SPECIAL LIBRARIAN 10/23/2013 Office visit Brittni Yanez SPECIAL LIBRARIAN 10/17/2013 Nurse visit Heena Dumont MD 10/12/2013 Office visit Kaylynn Mendez SPECIAL LIBRARIAN 10/02/2013 Office visit Heena Dumont MD 09/20/2013 Nurse visit Kaylynn Mendez SPECIAL LIBRARIAN 09/20/2013 Voided Heena Dumont MD 09/14/2013 Office visit Kaylynn Walker SPECIAL LIBRARIAN 09/05/2013 Office visit Sundeep Russell SPECIAL LIBRARIAN 09/04/2013 Nurse visit Kaylynn Mendez SPECIAL LIBRARIAN 08/31/2013 Office visit Kaylynn Mendez SPECIAL LIBRARIAN 08/23/2013 Office visit Heena Dumont MD 08/10/2013 Office visit Kaylynn Mendez SPECIAL LIBRARIAN 07/25/2013 Office visit Kaylynn Mendez SPECIAL LIBRARIAN 07/18/2013 Office visit Kaylynn Walker SPECIAL LIBRARIAN 07/12/2013 Office visit Kaylynn Walker SPECIAL LIBRARIAN 06/28/2013 Nurse visit Kaylynn Walker SPECIAL LIBRARIAN 06/14/2013 Nurse visit Kaylynn Walker SPECIAL LIBRARIAN 06/08/2013 Nurse visit Kaylynn Walker SPECIAL LIBRARIAN 05/31/2013 Nurse visit Chadd Norris DO 05/18/2013 Office visit Terese Davidson MD 05/16/2013 Office visit Kaylynn Walker SPECIAL LIBRARIAN 05/09/2013 Office visit Kaylynn Walker SPECIAL LIBRARIAN 04/29/2013 [facility] John Hoskins MD 04/25/2013 Nurse visit Kaylynn Walker SPECIAL LIBRARIAN 04/17/2013 Office visit Kaylynn Walker SPECIAL LIBRARIAN 04/03/2013 Nurse visit Kaylynn Walker SPECIAL LIBRARIAN 04/03/2013 Office visit Terese Davidson MD 03/28/2013 Office visit Sundeep Russell SPECIAL LIBRARIAN 03/21/2013 Office visit Kaylynn Walker SPECIAL LIBRARIAN 03/20/2013 Office visit Terese Davidson MD 03/14/2013 Nurse visit Kaylynn Walker SPECIAL LIBRARIAN 03/05/2013 Nurse visit Kaylynn Walker SPECIAL LIBRARIAN 02/19/2013 Office visit Terese Davidson MD 02/16/2013 Nurse visit Kaylynn Walker SPECIAL LIBRARIAN 02/09/2013 Office visit Sundeep Russell SPECIAL LIBRARIAN 02/08/2013 Nurse visit Kaylynn Walker SPECIAL LIBRARIAN 02/01/2013 Nurse visit Kaylynn Walker SPECIAL LIBRARIAN 01/26/2013 Nurse visit Sabrina Mendez ASSISTANT PROFESSOR 01/25/2013 Office visit Kaylynn Walker SPECIAL LIBRARIAN 01/22/2013 Office visit Yoan Castaneda MD 01/18/2013 Nurse visit Kaylynn Walker SPECIAL LIBRARIAN 01/11/2013 Nurse visit Kaylynn Walker SPECIAL LIBRARIAN 01/05/2013 Nurse visit Kaylynn Walker SPECIAL LIBRARIAN 12/29/2012 Office visit Kaylynn Walker SPECIAL LIBRARIAN 11/27/2012 Office visit Kaylynn Mendez SPECIAL LIBRARIAN 11/08/2012 Office visit Odell Tierney MD 11/08/2012 Voided Odell Tierney MD 11/07/2012 Office visit Kaylynn Mendez SPECIAL LIBRARIAN 10/31/2012 [facility] John Hoskins MD 10/31/2012 Office visit Kaylynn Walker SPECIAL LIBRARIAN 10/19/2012 Office visit Genoveva Ayala SPECIAL LIBRARIAN 10/10/2012 Office visit Kaylynn Walker SPECIAL LIBRARIAN 10/03/2012 Office visit Kaylynn Walker SPECIAL LIBRARIAN 09/26/2012 Office visit Kaylynn Walker SPECIAL LIBRARIAN 09/06/2012 Office visit Kaylynn Mendez SPECIAL LIBRARIAN 09/06/2012 Office visit Odell Tierney MD 08/31/2012 Voided Kaylynn Mendez SPECIAL LIBRARIAN 07/28/2012 Office visit Kaylynn Andrea SPECIAL LIBRARIAN 07/27/2012 Office visit David Ar DO 07/20/2012 Hospital David Sherifftom DO 07/13/2012 Hospital David Ar DO 07/11/2012 Office visit Kaylynn Mendez SPECIAL LIBRARIAN 06/27/2012 Hospital Odell Tierney MD 06/21/2012 Office visit David Joyner DO 06/21/2012 Office visit Odell Tierney MD 06/20/2012 Office visit Brittni Yanez SPECIAL LIBRARIAN 06/06/2012 Office visit Odell Tierney MD 05/03/2012 Office visit Kaylynn Mendez SPECIAL LIBRARIAN 04/28/2012 Office visit Brittni Yanez SPECIAL LIBRARIAN 04/11/2012 Office visit Kaylynn Mendez SPECIAL LIBRARIAN 04/06/2012 Hospital John Hoskins MD 03/30/2012 Office visit Kaylynn Mendez SPECIAL LIBRARIAN 03/15/2012 Office visit Kaylynn Mendez SPECIAL LIBRARIAN 03/15/2012 Office visit Odell Tierney MD 02/09/2012 Office visit Kaylynn Mendez SPECIAL LIBRARIAN 12/23/2011 Office visit Kaylynn Mendez SPECIAL LIBRARIAN 11/02/2011 Office visit Kaylynn Mendez SPECIAL LIBRARIAN 10/14/2011 Office visit Kaylynn Mendez SPECIAL LIBRARIAN 09/27/2011 Office visit Kaylynn Mendez SPECIAL LIBRARIAN 08/19/2011 Hospital John Hoskins MD 08/18/2011 Hospital John Hoskins MD 08/18/2011 Office visit Kaylynn Mendez SPECIAL LIBRARIAN 08/02/2011 Office visit Kaylynn Mendez SPECIAL LIBRARIAN 07/08/2011 Office visit Kaylynn Mendez SPECIAL LIBRARIAN 07/05/2011 Office visit Odell Tierney MD 06/15/2011 Office visit Kaylynn Mendez SPECIAL LIBRARIAN 05/14/2011 Office visit Kaylynn Mendez SPECIAL LIBRARIAN 05/11/2011 Office visit Odell Tierney MD 04/28/2011 Office visit Kaylynn Mendez SPECIAL LIBRARIAN 03/02/2011 Office visit Chadd Norris DO 02/17/2011 [...]
--- OUTSIDE RECORDS SUMMARY | 2018-05-10 05:03 | XMS REPORT ---
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 esotadxy-mhphbeazh-IY 3.5-10,000-1 mg/mL-unit/mL-% otic drops,suspension 201607/23/2016 instill 4 [...] Reviewed 04/28/2011 12:00 AM Decadron 1 mg ND#[id number] (Jr) Reviewed 04/28/2011 12:00 AM Depo-Medrol 80 mg NDC#[id number]-Zolizqal Reviewed 09/02/2015 12:00 AM Toradol 60 Mg NDC#5255-4394-00 Reviewed 09/02/2015 12:00 AM Phenergan, Up to 50 Mg RHC Medicaid Reviewed 09/16/2015 12:00 AM Toradol 60 Mg NDC#9124-7281-39 Reviewed 09/16/2015 12:00 AM Phenergan Up to 50 mg RHC Medicare Reviewed 05/11/2011 12:00 AM N BLOCK INJ OCCIPITAL Reviewed 05/11/2011 12:00 AM Kenalog Bh-96311-0028-20 ANNA Reviewed 11/13/2015 12:00 AM ASSAY OF [...] Reviewed 07/08/2011 12:00 AM Toradol,15mg [facility]#[id number], [place] Reviewed 07/08/2011 12:00 AM Phenergan 50 Mg Im [facility] 5649-6876-69 [place] Reviewed 01/21/2016 12:00 AM ECG MONIT/REPRT UP TO 48 HRS Returned 08/02/2011 12:00 AM THER/PROPH/DIAG INJ SC/IM Reviewed 08/02/2011 12:00 AM Decadron 1 mg [facility]#[id number] (Jr) Reviewed 08/02/2011 12:00 AM Depo-Medrol 80 mg [facility]#[id number]-Uohgewip Reviewed 03/05/2016 12:00 AM COMPLETE CBC W/AUTO [...] 12:00 AM Depo-Medrol 80 mg [facility]#[id number]-Gkkeadqt Reviewed 07/06/2016 12:00 AM CHEST X-RAY 4/> [...] Reviewed 12/23/2011 12:00 AM Decadron 1 mg NDC#[id number] (Jr) Reviewed 12/23/2011 12:00 AM Depo-Medrol 80 mg NDC#25509640298-Tmjjgxob Reviewed 02/09/2012 12:00 AM THER/PROPH/DIAG INJ SC/IM Reviewed 02/09/2012 12:00 AM Decadron 1 mg NDC#[id number] (Jr) Reviewed 02/09/2012 12:00 AM Depo-Medrol 80 mg NDC#[id number]-Jjhcemkn Reviewed 03/15/2012 12:00 AM N BLOCK INJ OCCIPITAL Reviewed 03/15/2012 12:00 AM Kenalog Rs-[address]-20 ANNA Reviewed 04/11/2012 12:00 AM COMPLETE CBC W/AUTO DIFF WBC Reviewed 04/11/2012 12:00 AM COMPREHEN METABOLIC PANEL Reviewed 04/11/2012 12:00 AM LIPID PANEL Reviewed 04/11/2012 12:00 AM ASSAY THYROID STIM HORMONE Reviewed 06/20/2012 12:00 AM THER/PROPH/DIAG INJ SC/IM Reviewed 06/20/2012 12:00 AM Decadron, Per 1 Mg NDC# [address]-17 Reviewed 06/20/2012 12:00 AM Depo-Medrol, Per 80 Mg NDC#6446-3805-90 Reviewed 09/06/2012 12:00 AM N BLOCK INJ OCCIPITAL Reviewed 09/06/2012 12:00 AM Kenalog Wg-[address]-20 ANNA Reviewed 09/06/2012 12:00 AM X-RAY EXAM RIBS UNI 2 VIEWS Reviewed 09/26/2012 12:00 AM THER/PROPH/DIAG INJ SC/IM Reviewed 09/26/2012 12:00 AM Decadron, Per 1 Mg [facility]# [address]-82 Reviewed 09/26/2012 12:00 AM Depo-Medrol, Per 80 Mg [facility]#7333-7664-38 Reviewed 10/03/2012 12:00 AM URINALYSIS AUTO W/O SCOPE Reviewed 10/03/2012 12:00 AM THER/PROPH/DIAG INJ SC/IM Reviewed 10/03/2012 12:00 AM Toradol 60 Mg [facility]#7060-7151-66 Reviewed 10/03/2012 12:00 AM Phenergan, 25Mg [facility]#1189-7683-57 Reviewed 10/19/2012 12:00 AM N BLOCK INJ OCCIPITAL Reviewed 10/19/2012 12:00 AM Kenalog, Per 10 Mg [facility]#4084-0716-84 Reviewed 10/19/2012 12:00 AM Toradol 30 Mg [facility]#2571-2839-05 Reviewed 10/19/2012 12:00 AM THER/PROPH/DIAG INJ SC/IM Reviewed 10/31/2012 12:00 AM COMPLETE CBC W/AUTO DIFF WBC Reviewed 10/31/2012 12:00 AM COMPREHEN METABOLIC PANEL Reviewed 10/31/2012 12:00 AM LIPID PANEL Reviewed 11/03/2012 12:[address] THORAX W/O & W/DYE Reviewed 11/08/2012 12:00 AM N BLOCK INJ OCCIPITAL Reviewed 11/08/2012 12:00 AM Kenalog Hl-[address]-20 ANNA Reviewed 11/27/2012 12:00 AM COMPLETE CBC [...] Decadron, Per 1 Mg [facility]# [address]-67 Reviewed 01/25/2013 12:00 AM Depo-Medrol, Per 80 Mg [facility]#3390-4130-97 Reviewed 01/26/2013 12:00 AM IMMUNOTHERAPY INJECTIONS Reviewed [...] Decadron, Per 1 Mg [facility]# [address]-36 Reviewed 05/16/2013 12:00 AM Depo-Medrol, Per 80 Mg [facility]#9791-4493-02 Reviewed 05/31/2013 12:00 AM IMMUNOTHERAPY INJECTIONS Reviewed 06/08/2013 12:00 AM IMMUNOTHERAPY INJECTIONS Reviewed 06/14/2013 12:00 AM IMMUNOTHERAPY INJECTIONS Reviewed 06/28/2013 12:00 AM IMMUNOTHERAPY INJECTIONS Reviewed 07/12/2013 12:00 AM X-RAY EXAM RIBS UNI 2 VIEWS Reviewed 07/18/2013 12:00 AM Toradol 60 Mg [facility]#6767-6157-37 Reviewed 07/18/2013 12:00 AM THER/PROPH/DIAG INJ SC/IM Reviewed 08/23/2013 12:00 AM COMPLETE CBC W/AUTO DIFF WBC Reviewed 08/23/2013 12:00 AM COMPREHEN METABOLIC PANEL Reviewed 08/23/2013 12:00 AM LIPID PANEL Reviewed 08/31/2013 12:00 AM X-RAY EXAM OF LOWER LEG Reviewed 09/04/2013 12:00 AM IMMUNOTHERAPY INJECTIONS Reviewed 09/14/2013 12:00 AM THER/PROPH/DIAG INJ SC/IM Reviewed 09/14/2013 12:00 AM Decadron, Per 1 Mg [facility]# [address]-77 Reviewed 09/14/2013 12:00 AM Depo-Medrol, Per 80 Mg [facility]#9974-4763-38 Reviewed 09/20/2013 12:00 AM IMMUNOTHERAPY INJECTIONS Reviewed [...] INJ OCCIPITAL Reviewed 12/10/2009 12:00 AM Kenalog Ej-[address]-20 ANNA Reviewed 12/16/2009 12:00 AM HIV-1ANTIBODY Reviewed 12/16/2009 12:00 AM COMPLETE CBC W/AUTO DIFF WBC Reviewed 12/16/2009 12:00 AM METABOLIC PANEL TOTAL CA Reviewed 12/16/2009 12:00 AM Type and screen Reviewed 12/16/2009 12:00 AM PROTHROMBIN TIME Reviewed 12/16/2009 12:00 AM THROMBOPLASTIN TIME PARTIAL Reviewed 03/18/2010 12:00 AM DRAIN/INJ JOINT/BURSA W/O US Reviewed 03/18/2010 12:00 AM Kenalog Nr-[address]-20 ANNA Reviewed 11/21/2013 12:00 AM RADEX HAND MINIMUM 3 VIEWS Reviewed 06/03/2010 12:00 AM INJ TRIGGER POINT 1/2 MUSCL Reviewed 06/03/2010 12:00 AM Kenalog per 10Mg [facility]#[address]-86(Niall) Reviewed 12/05/2013 12:00 AM COMPLETE CBC W/AUTO [...] 07/23/2010 12:00 AM Kenalog per 10Mg [facility]#[address]-23(Niall) Reviewed 2014 12:00 AM COMPLETE CBC W/AUTO [...] INJ OCCIPITAL Reviewed 10/01/2010 12:00 AM Kenalog Rj-[address]-20 ANNA Reviewed 07/25/2014 12:00 AM THER/PROPH/DIAG INJ [...] 141 Influenza 04/24/2014 [employer] Fluzone [id number] Intramuscular Left Upper Arm 02/27/2014 01/15/2014 141 Influenza 02/13/2015 [employer] Fluzone [id number] Intramuscular Left Deltoid 02/13/2015 01/03/2015 140 Tdap 06/06/2015 [employer] SKB BOOSTRIX [id number] Intramuscular Left Deltoid 06/06/2015 07/23/2014 115 Influenza 03/18/2016 [facility] Fluzone [id number] Intramuscular Left Deltoid 03/17/2016 01/03/2015 141 History [...] Anxiety about health Aug 26 2016 3:09PM Payers Insurance Name Company Name Plan Name Plan Number Policy Number Policy Group Number Start Date Medicare RHC Medicare RHC [id number] N/A [facility] Comm [id number] N/A Medicare Part A Medicare - [employer] [id number] N/A Medicare Part B Medicare Of [place] [id number] Monday, February 28, 2000 [place] [employer] [place] [employer] [place] [id number] Tuesday, November 10, 2009 Medicare Part A Medicare Part A [id number] N/A [place] [employer] - R[place] [employer] - RHC [id number] May [facility] Comm Plan of [id number] Wednesday, May 30, 2012 History of Encounters Visit Date Visit Type Provider 09/22/2016 Office visit Heena Dumont MD 09/09/2016 Office visit Kaylynn Mendez APRN 08/27/2016 Office visit Riccardo Cardoza MD 08/26/2016 Office visit Heena Dumont MD 07/09/2016 Office visit Riccardo Cardoza MD 07/06/2016 Office visit Heena Dumont MD 06/18/2016 Office visit Kaylynn Mendez APRN 06/07/2016 Office visit Sundeep Russell COOK SHORT ORDER 06/04/2016 Office visit Heena Dumont MD 05/13/2016 Office visit Heena Dumont MD 05/03/2016 Office visit Heena Dumont MD 04/26/2016 Office visit Kaylynn Mendez COOK SHORT ORDER 04/14/2016 Office visit Heena Dumont MD 04/13/2016 Office visit Kaylynn Mendez COOK SHORT ORDER 04/02/2016 Office visit Lena El COOK SHORT ORDER 04/02/2016 Office visit Heena Dumont MD 03/26/2016 Office visit Yesica Falcon COOK SHORT ORDER 03/17/2016 Office visit Heena Dumont MD 03/05/2016 Office visit Kaylynn Mendez COOK SHORT ORDER 02/16/2016 Office visit Heena Dumont MD 02/14/2016 Office visit Na Jones COOK SHORT ORDER 01/16/2016 Office visit Heena Dumont MD 12/16/2015 Office visit Heena Dumont MD 11/24/2015 Office visit Kaylynn Mendez COOK SHORT ORDER 11/18/2015 Office visit Heena Dumont MD 11/03/2015 Office visit Sundeep Russell COOK SHORT ORDER 10/20/2015 Office visit Kaylynn Mendez COOK SHORT ORDER 09/23/2015 Office visit Kaylynn Mendez COOK SHORT ORDER 09/16/[address] Pepe Figueroa MD 09/02/2015 Office visit Kaylynn Mendez COOK SHORT ORDER 09/01/2015 Office visit Kaylynn Mendez COOK SHORT ORDER 07/30/2015 Office visit Heena Dumont MD 07/15/2015 Office visit Kaylynn Mendez COOK SHORT ORDER 07/04/2015 Office visit Heena Dumont MD 06/06/2015 Office visit Heena Dumont MD 06/06/2015 Office visit Kaylynn Mendez COOK SHORT ORDER 06/02/2015 Office visit Kaylynn Mendez COOK SHORT ORDER 05/26/2015 Office visit Kaylynn Mendez COOK SHORT ORDER 05/20/2015 Office visit Kaylynn Mendez COOK SHORT ORDER 05/08/2015 Office visit Heena Dumont MD 05/06/2015 Office visit Kaylynn Mendez COOK SHORT ORDER 04/29/2015 Office visit Kaylynn Mendez COOK SHORT ORDER 03/27/2015 Voided Brittni Yanez COOK SHORT ORDER 03/21/2015 Office visit Heena Dumont MD 03/12/2015 Office visit Kaylynn Mendez COOK SHORT ORDER 02/26/2015 Office visit Brittni Yanez COOK SHORT ORDER 02/13/2015 Office visit Heena Dumont MD 01/15/2015 Office visit Brittni Yanez COOK SHORT ORDER 01/13/2015 Office visit Heena Dumont MD 01/08/[address] Carol Fowler MD 01/01/2015 Office visit Brittni Yanez COOK SHORT ORDER 12/13/2014 Office visit Heena Dumont MD 11/27/2014 Office visit Kaylynn Mendez COOK SHORT ORDER 11/14/2014 Office visit Heena Dumont MD 10/18/2014 Office visit Heena Dumont MD 10/17/2014 [facility] Eliseo Hoskins MD 10/09/2014 Office visit Heena Dumont MD 09/25/2014 Office visit Heena Dumont MD 09/17/2014 Office visit Kaylynn Mendez COOK SHORT ORDER 09/04/2014 Office visit Heena Dumont MD 08/28/2014 Office visit Kaylynn Mendez COOK SHORT ORDER 08/23/2014 [facility] Eliseo Hoskins MD 08/01/2014 Office visit Kaylynn Mendez COOK SHORT ORDER 07/29/2014 Office visit Heena Dumont MD 07/25/2014 Nurse visit Heena Dumont MD 07/17/2014 Office visit Kaylynn Mendez COOK SHORT ORDER 07/11/2014 Office visit Heena Dumont MD 07/01/2014 Office visit Heena Dumont MD 06/25/2014 Office visit Kaylynn Mendez COOK SHORT ORDER 06/12/2014 Office visit Kaylynn Mendez COOK SHORT ORDER 06/06/2014 Office visit Kaylynn Mendez COOK SHORT ORDER 05/27/2014 Office visit Heena Dumont MD 04/20/2014 Office visit Yesica Falcon COOK SHORT ORDER 03/29/2014 Office visit Na Jones COOK SHORT ORDER 03/15/2014 Office visit Heena Dumont MD 2014 Office visit Heena Dumont MD 2014 [facility] John Hoskins MD 02/27/2014 Nurse visit Heena Dumont MD 02/13/2014 Office visit Lena El COOK SHORT ORDER 02/07/2014 Office visit Heena Dumont MD 02/03/2014 Office visit Na Jones COOK SHORT ORDER 01/30/2014 Office visit Kaylynn Mendez COOK SHORT ORDER 01/24/2014 Office visit Sundeep Russell COOK SHORT ORDER 01/16/2014 Office visit Kaylynn Mendez COOK SHORT ORDER 01/10/2014 Nurse visit Kaylynn Mendez COOK SHORT ORDER 01/08/2014 Office visit Kaylynn Mendez COOK SHORT ORDER 12/05/2013 Office visit Kaylynn Mendez COOK SHORT ORDER 11/21/2013 Office visit Kaylynn Mendez COOK SHORT ORDER 10/23/2013 Office visit Brittni Yanez COOK SHORT ORDER 10/17/2013 Nurse visit Heena Dumont MD 10/12/2013 Office visit Kaylynn Walker COOK SHORT ORDER 10/02/2013 Office visit Heena Dumont MD 09/20/2013 Nurse visit Kaylynn Mendez COOK SHORT ORDER 09/20/2013 Voided Heena Dumont MD 09/14/2013 Office visit Kaylynn Walker COOK SHORT ORDER 09/05/2013 Office visit Sundeep Russell COOK SHORT ORDER 09/04/2013 Nurse visit Kaylynn Walker COOK SHORT ORDER 08/31/2013 Office visit Kaylynn Walker COOK SHORT ORDER 08/23/2013 Office visit Heena Dumont MD 08/10/2013 Office visit Kaylynn Walker COOK SHORT ORDER 07/25/2013 Office visit Kaylynn Walker COOK SHORT ORDER 07/18/2013 Office visit Kaylynn Walker COOK SHORT ORDER 07/12/2013 Office visit Kaylynn Walker COOK SHORT ORDER 06/28/2013 Nurse visit Kaylynn Walker COOK SHORT ORDER 06/14/2013 Nurse visit Kaylynn Walker COOK SHORT ORDER 06/08/2013 Nurse visit Kaylynn Walker COOK SHORT ORDER 05/31/2013 Nurse visit Chadd Norris DO 05/18/2013 Office visit Terese Davidson MD 05/16/2013 Office visit Kaylynn Mendez COOK SHORT ORDER 05/09/2013 Office visit Kaylynn Mendez COOK SHORT ORDER 04/29/2013 [facility] Eliseo Hoskins MD 04/25/2013 Nurse visit Kaylynn Walker COOK SHORT ORDER 04/17/2013 Office visit Kaylynn Walker COOK SHORT ORDER 04/03/2013 Nurse visit Kaylynn Mendez COOK SHORT ORDER 04/03/2013 Office visit Terese Davidson MD 03/28/2013 Office visit Sundeep Russell COOK SHORT ORDER 03/21/2013 Office visit Kaylynn Mendez COOK SHORT ORDER 03/20/2013 Office visit Terese Davidson MD 03/14/2013 Nurse visit Kaylynn Mendez COOK SHORT ORDER 03/05/2013 Nurse visit Kaylynn Mendez COOK SHORT ORDER 02/19/2013 Office visit Terese Davidson MD 02/16/2013 Nurse visit Kaylynn Mendez COOK SHORT ORDER 02/09/2013 Office visit Sundeep Russell COOK SHORT ORDER 02/08/2013 Nurse visit Kaylynn Walker COOK SHORT ORDER 02/01/2013 Nurse visit Kaylynn Walker COOK SHORT ORDER 01/26/2013 Nurse visit Sabrina Mendez CENTRAL COMMUNICATIONS SPECIALIST 01/25/2013 Office visit Kaylynn Mendez COOK SHORT ORDER 01/22/2013 Office visit Yoan Castaneda MD 01/18/2013 Nurse visit Kaylynn Walker COOK SHORT ORDER 01/11/2013 Nurse visit Kaylynn Walker COOK SHORT ORDER 01/05/2013 Nurse visit Kaylynn Walker COOK SHORT ORDER 12/29/2012 Office visit Kaylynn Walker COOK SHORT ORDER 11/27/2012 Office visit Kaylynn Walker COOK SHORT ORDER 11/08/2012 Office visit Odell Tierney MD 11/08/2012 Voided Odell Tierney MD 11/07/2012 Office visit Kaylynn Mendez COOK SHORT ORDER 10/31/2012 Hospital John Hoskins MD 10/31/2012 Office visit Kaylynn Walker COOK SHORT ORDER 10/19/2012 Office visit Genoveva Ayala COOK SHORT ORDER 10/10/2012 Office visit Kaylynn Walker COOK SHORT ORDER 10/03/2012 Office visit Kaylynn Walker COOK SHORT ORDER 09/26/2012 Office visit Kaylynn Walker COOK SHORT ORDER 09/06/2012 Office visit Kaylynn Walker COOK SHORT ORDER 09/06/2012 Office visit Odell Tierney MD 08/31/2012 Voided Kaylynn Andrea COOK SHORT ORDER 07/28/2012 Office visit Kaylynn Walker COOK SHORT ORDER 07/27/2012 Office visit David Joyner DO 07/20/2012 [facility] David Joyner DO 07/13/2012 [facility] David Joyner DO 07/11/2012 Office visit Kaylynn Walker COOK SHORT ORDER 06/27/2012 [facility] Odell Tierney MD 06/21/2012 Office visit David Joyner DO 06/21/2012 Office visit Odell Tierney MD 06/20/2012 Office visit Brittni Yanez COOK SHORT ORDER 06/06/2012 Office visit Odell Tierney MD 05/03/2012 Office visit Kaylynn Mendez COOK SHORT ORDER 04/28/2012 Office visit Brittni Yanez COOK SHORT ORDER 04/11/2012 Office visit Kaylynn Walker COOK SHORT ORDER 04/06/2012 [facility] John Hoskins MD 03/30/2012 Office visit Kaylynn Walker COOK SHORT ORDER 03/15/2012 Office visit Kaylynn Walker COOK SHORT ORDER 03/15/2012 Office visit Odell Tierney MD 02/09/2012 Office visit Kaylynn Walker COOK SHORT ORDER 12/23/2011 Office visit Kaylynn Walker COOK SHORT ORDER 11/02/2011 Office visit Kaylynn Walker COOK SHORT ORDER 10/14/2011 Office visit Kaylynn Walker COOK SHORT ORDER 09/27/2011 Office visit Kaylynn Andrea COOK SHORT ORDER 08/19/2011 Hospital John Hoskins MD 08/18/2011 Hospital John Hoskins MD 08/18/2011 Office visit Kaylynn Walker COOK SHORT ORDER 08/02/2011 Office visit Kaylynn Walker COOK SHORT ORDER 07/08/2011 Office visit Kaylynn Walker COOK SHORT ORDER 07/05/2011 Office visit Odell Tierney MD 06/15/2011 Office visit Kaylynn Mendez COOK SHORT ORDER 05/14/2011 Office visit Kaylynn Walker COOK SHORT ORDER 05/11/2011 Office visit Odell Tierney MD 04/28/2011 Office visit Kaylynn Mendez COOK SHORT ORDER 03/02/2011 Office visit Chadd Norris DO 02/17/2011 [...]
--- OUTSIDE RECORDS SUMMARY | 2018-05-10 05:24 | XMS REPORT ---
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 Patterosn Pyridium 200 mg oral tablet 03/18/2010 take [...] Reviewed 04/28/2011 12:00 AM Decadron 1 mg ND#[id number] (Rj) Reviewed 04/28/2011 12:00 AM Depo-Medrol 80 mg ND#[id number]-Shmnnwtk Reviewed 09/02/2015 12:00 AM Toradol 60 Mg NDC#9564-7602-61 Reviewed 09/02/2015 12:00 AM Phenergan, Up to 50 Mg RHC Medicaid Reviewed 09/16/2015 12:00 AM Toradol 60 Mg ND#9701-0574-22 Reviewed 09/16/2015 12:00 AM Phenergan Up to 50 mg RHC Medicare Reviewed 05/11/2011 12:00 AM N BLOCK INJ OCCIPITAL Reviewed 05/11/2011 12:00 AM Kenalog Fr-[address]-20 ANNA Reviewed 11/13/2015 12:00 AM ASSAY OF [...] SC/IM Reviewed 07/08/2011 12:00 AM Toradol,15mg [facility]#[id number], [place] Reviewed 07/08/2011 12:00 AM Phenergan 50 Mg Im [facility] 3055-5132-30 [place] Reviewed 01/21/2016 12:00 AM ECG MONIT/REPRT UP TO 48 HRS Returned 08/02/2011 12:00 AM THER/PROPH/DIAG INJ SC/IM Reviewed 08/02/2011 12:00 AM Decadron 1 mg [facility]#[id number] (Jr) Reviewed 08/02/2011 12:00 AM Depo-Medrol 80 mg [facility]#[id number]-Rqsgzjft Reviewed 03/05/2016 12:00 AM COMPLETE CBC W/AUTO DIFF WBC Returned 03/05/2016 12:00 AM STREP A ASSAY W/OPTIC Returned 03/05/2016 12:00 AM C-REACTIVE PROTEIN Returned 03/18/2016 12:00 AM [facility] - flu vaccine administration Reviewed 03/18/2016 12:00 AM INFLUENZA VACCINE QUADRIVALENT 3 YRS PLUS IM Reviewed 04/15/2016 12:00 AM Screening mammography, bilateral Reviewed 04/16/2016 12:00 AM Consult/Referral Reviewed 05/03/2016 12:00 AM METABOLIC PANEL TOTAL CA Returned 05/03/2016 12:00 AM COMPLETE CBC W/AUTO DIFF WBC Returned 09/27/2011 12:00 AM THER/PROPH/DIAG INJ SC/IM Reviewed 09/27/2011 12:00 AM Depo-Medrol 80 mg [facility]#[id number]-Nbbthkxx Reviewed 10/14/2011 12:00 AM X-RAY EXAM OF ABDOMEN Reviewed 10/14/2011 12:00 AM URINALYSIS AUTO W/O SCOPE Reviewed 12/23/2011 12:00 AM THER/PROPH/DIAG INJ SC/IM Reviewed 12/23/2011 12:00 AM Decadron 1 mg NDC#[id number] (Jr) Reviewed 12/23/2011 12:00 AM Depo-Medrol 80 mg NDC#[id number]-Bwtkbrwz Reviewed 02/09/2012 12:00 AM THER/PROPH/DIAG INJ SC/IM Reviewed 02/09/2012 12:00 AM Decadron 1 mg NDC#[id number] (Jr) Reviewed 02/09/2012 12:00 AM Depo-Medrol 80 mg NDC#[id number]-Oeodydrf Reviewed 03/15/2012 12:00 AM N BLOCK INJ OCCIPITAL Reviewed 03/15/2012 12:00 AM Kenalog Tp-[address]-20 ANNA Reviewed 04/11/2012 12:00 AM COMPLETE CBC W/AUTO DIFF WBC Reviewed 04/11/2012 12:00 AM COMPREHEN METABOLIC PANEL Reviewed 04/11/2012 12:00 AM LIPID PANEL Reviewed 04/11/2012 12:00 AM ASSAY THYROID STIM HORMONE Reviewed 06/20/2012 12:00 AM THER/PROPH/DIAG INJ SC/IM Reviewed 06/20/2012 12:00 AM Decadron, Per 1 Mg ND# [address]-37 Reviewed 06/20/2012 12:00 AM Depo-Medrol, Per 80 Mg ND#9266-8941-03 Reviewed 09/06/2012 12:00 AM N BLOCK INJ OCCIPITAL Reviewed 09/06/2012 12:00 AM Kenalog Rb-[address]-20 ANNA Reviewed 09/06/2012 12:00 AM X-RAY EXAM RIBS UNI 2 VIEWS Reviewed 09/26/2012 12:00 AM THER/PROPH/DIAG INJ SC/IM Reviewed 09/26/2012 12:00 AM Decadron, Per 1 Mg NDC# [address]-55 Reviewed 09/26/2012 12:00 AM Depo-Medrol, Per 80 Mg NDC#8810-7002-01 Reviewed 10/03/2012 12:00 AM URINALYSIS AUTO W/O SCOPE Reviewed 10/03/2012 12:00 AM THER/PROPH/DIAG INJ SC/IM Reviewed 10/03/2012 12:00 AM Toradol 60 Mg NDC#8897-2849-87 Reviewed 10/03/2012 12:00 AM Phenergan, 25Mg NDC#4249-4411-81 Reviewed 10/19/2012 12:00 AM N BLOCK INJ OCCIPITAL Reviewed 10/19/2012 12:00 AM Kenalog, Per 10 Mg [facility]#3828-6262-26 Reviewed 10/19/2012 12:00 AM Toradol 30 Mg [facility]#2519-6525-51 Reviewed 10/19/2012 12:00 AM THER/PROPH/DIAG INJ SC/IM Reviewed 10/31/2012 12:00 AM COMPLETE CBC W/AUTO DIFF WBC Reviewed 10/31/2012 12:00 AM COMPREHEN METABOLIC PANEL Reviewed 10/31/2012 12:00 AM LIPID PANEL Reviewed 11/03/2012 12:[address] THORAX W/O & W/DYE Reviewed 11/08/2012 12:00 AM N BLOCK INJ OCCIPITAL Reviewed 11/08/2012 12:00 AM Kenalog Fj-[address]-20 ANNA Reviewed 11/27/2012 12:00 AM COMPLETE CBC [...] AM Decadron, Per 1 Mg [facility]# [address]-40 Reviewed 01/25/2013 12:00 AM Depo-Medrol, Per 80 Mg [facility]#7188-5540-80 Reviewed 01/26/2013 12:00 AM IMMUNOTHERAPY INJECTIONS Reviewed [...] AM Decadron, Per 1 Mg [facility]# [address]-46 Reviewed 05/16/2013 12:00 AM Depo-Medrol, Per 80 Mg [facility]#5096-1943-00 Reviewed 05/31/2013 12:00 AM IMMUNOTHERAPY INJECTIONS Reviewed 06/08/2013 12:00 AM IMMUNOTHERAPY INJECTIONS Reviewed 06/14/2013 12:00 AM IMMUNOTHERAPY INJECTIONS Reviewed 06/28/2013 12:00 AM IMMUNOTHERAPY INJECTIONS Reviewed 07/12/2013 12:00 AM X-RAY EXAM RIBS UNI 2 VIEWS Reviewed 07/18/2013 12:00 AM Toradol 60 Mg [facility]#4492-9219-77 Reviewed 07/18/2013 12:00 AM THER/PROPH/DIAG INJ SC/IM Reviewed 08/23/2013 12:00 AM COMPLETE CBC W/AUTO DIFF WBC Reviewed 08/23/2013 12:00 AM COMPREHEN METABOLIC PANEL Reviewed 08/23/2013 12:00 AM LIPID PANEL Reviewed 08/31/2013 12:00 AM X-RAY EXAM OF LOWER LEG Reviewed 09/04/2013 12:00 AM IMMUNOTHERAPY INJECTIONS Reviewed 09/14/2013 12:00 AM THER/PROPH/DIAG INJ SC/IM Reviewed 09/14/2013 12:00 AM Decadron, Per 1 Mg [facility]# [address]-06 Reviewed 09/14/2013 12:00 AM Depo-Medrol, Per 80 Mg [facility]#5917-5362-09 Reviewed 09/20/2013 12:00 AM IMMUNOTHERAPY INJECTIONS Reviewed [...] INJ OCCIPITAL Reviewed 12/10/2009 12:00 AM Kenalog Wx-[address]-20 ANNA Reviewed 12/16/2009 12:00 AM HIV-1ANTIBODY Reviewed 12/16/2009 12:00 AM COMPLETE CBC W/AUTO DIFF WBC Reviewed 12/16/2009 12:00 AM METABOLIC PANEL TOTAL CA Reviewed 12/16/2009 12:00 AM Type and screen Reviewed 12/16/2009 12:00 AM PROTHROMBIN TIME Reviewed 12/16/2009 12:00 AM THROMBOPLASTIN TIME PARTIAL Reviewed 03/18/2010 12:00 AM DRAIN/INJ JOINT/BURSA W/O US Reviewed 03/18/2010 12:00 AM Kenalog Hd-[address]-20 ANNA Reviewed 11/21/2013 12:00 AM RADEX HAND MINIMUM 3 VIEWS Reviewed 06/03/2010 12:00 AM INJ TRIGGER POINT 1/2 MUSCL Reviewed 06/03/2010 12:00 AM Kenalog per 10Mg -[facility]#[address]-25(Niall) Reviewed 12/05/2013 12:00 AM COMPLETE CBC W/AUTO [...] Reviewed 07/23/2010 12:00 AM Kenalog per 10Mg Im-[facility]#[address]-15(Niall) Reviewed 2014 12:00 AM COMPLETE CBC W/AUTO [...] INJ OCCIPITAL Reviewed 10/01/2010 12:00 AM Kenalog Gs-[address]-20 ANNA Reviewed 07/25/2014 12:00 AM THER/PROPH/DIAG INJ [...] 141 Influenza 04/24/2014 sanofi pasteur PMC Fluzone [id number] Intramuscular Left Upper Arm 02/27/2014 01/15/2014 141 Influenza 02/13/2015 sanofi pasteur PMC Fluzone [id number] Intramuscular Left Deltoid 02/13/2015 01/03/2015 140 Tdap 06/06/2015 [employer] SKB BOOSTRIX [id number] Intramuscular Left Deltoid 06/06/2015 07/23/2014 115 Influenza 03/18/2016 sanofi pasteur PMC Fluzone [id number] Intramuscular Left Deltoid 03/17/2016 01/03/2015 141 History [...] Chronic pain syndrome Apr 02 2016 10:08AM Payers Insurance Name Company Name Plan Name Plan Number Policy Number Policy Group Number Start Date Medicare Part A Medicare RHC [id number] N/A [facility] RHC Comm [id number] N/A Medicare Part A Medicare - Lab/Xray [id number] N/A Medicare Part B Medicare Of [place] [id number] Monday, February 28, 2000 [place] [employer] [place] [employer] [place] [id number] Tuesday, November 10, 2009 Medicare Part A Medicare Part A [id number] N/A [place] [employer] - RHC [place] [employer] - RHC [id number] May [facility] Comm Plan of [id number] Wednesday, May 30, 2012 History of Encounters Visit Date Visit Type Provider 05/13/2016 Office visit Heena Dumont MD 05/03/2016 Office visit Heena Dumont MD 04/26/2016 Office visit Kaylynn Mendez VARNISHING MACHINE OPERATOR 04/14/2016 Office visit Heena Dumont MD 04/13/2016 Office visit Kaylynn Mendez VARNISHING MACHINE OPERATOR 04/02/2016 Office visit Lena El VARNISHING MACHINE OPERATOR 04/02/2016 Office visit Heena Dumont MD 03/26/2016 Office visit Yesica Falcon VARNISHING MACHINE OPERATOR 03/17/2016 Office visit Heena Dumont MD 03/05/2016 Office visit Kaylynn Mendez VARNISHING MACHINE OPERATOR 02/16/2016 Office visit Heena Dumont MD 02/14/2016 Office visit Na Jones VARNISHING MACHINE OPERATOR 01/16/2016 Office visit Heena Dumont MD 12/16/2015 Office visit Heena Dumont MD 11/24/2015 Office visit Kaylynn Mendez VARNISHING MACHINE OPERATOR 11/18/2015 Office visit Heena Dumont MD 11/03/2015 Office visit Sundeep Russell VARNISHING MACHINE OPERATOR 10/20/2015 Office visit Kaylynn Walker VARNISHING MACHINE OPERATOR 09/23/2015 Office visit Kaylynn Walker VARNISHING MACHINE OPERATOR 09/16/[address] Pepe Figueroa MD 09/02/2015 Office visit Kaylynn Walker VARNISHING MACHINE OPERATOR 09/01/2015 Office visit Kaylynn Walker VARNISHING MACHINE OPERATOR 07/30/2015 Office visit Heena Dumont MD 07/15/2015 Office visit Kaylynn Walker VARNISHING MACHINE OPERATOR 07/04/2015 Office visit Heena Dumont MD 06/06/2015 Office visit Heena Dumont MD 06/06/2015 Office visit Kaylynn Walker VARNISHING MACHINE OPERATOR 06/02/2015 Office visit Kaylynn Walker VARNISHING MACHINE OPERATOR 05/26/2015 Office visit Kaylynn Walker VARNISHING MACHINE OPERATOR 05/20/2015 Office visit Kaylynn Mendez VARNISHING MACHINE OPERATOR 05/08/2015 Office visit Heena Dumont MD 05/06/2015 Office visit Kaylynn Mendez VARNISHING MACHINE OPERATOR 04/29/2015 Office visit Kaylynn Mendez VARNISHING MACHINE OPERATOR 03/27/2015 Voided Brittni Yanez VARNISHING MACHINE OPERATOR 03/21/2015 Office visit Heena Dumont MD 03/12/2015 Office visit Kaylynn Mendez VARNISHING MACHINE OPERATOR 02/26/2015 Office visit Brittni Yanez VARNISHING MACHINE OPERATOR 02/13/2015 Office visit Heena Dumont MD 01/15/2015 Office visit Brittni Yanez VARNISHING MACHINE OPERATOR 01/13/2015 Office visit Heena Dumont MD 01/08/[address] Carol Fowler MD 01/01/2015 Office visit Brittni Yanez VARNISHING MACHINE OPERATOR 12/13/2014 Office visit Heena Dumont MD 11/27/2014 Office visit Kaylynn Mendez VARNISHING MACHINE OPERATOR 11/14/2014 Office visit Heena Dumont MD 10/18/2014 Office visit Heena Dumont MD 10/17/2014 [facility] John Hoskins MD 10/09/2014 Office visit Heena Dumont MD 09/25/2014 Office visit Heena Dumont MD 09/17/2014 Office visit Kaylynn Mendez VARNISHING MACHINE OPERATOR 09/04/2014 Office visit Heena Dumont MD 08/28/2014 Office visit Kaylynn Mendez VARNISHING MACHINE OPERATOR 08/23/2014 [facility] John Hoskins MD 08/01/2014 Office visit Kaylynn Mendez VARNISHING MACHINE OPERATOR 07/29/2014 Office visit Heena Dumont MD 07/25/2014 Nurse visit Heena Dumont MD 07/17/2014 Office visit Kaylynn Mendez VARNISHING MACHINE OPERATOR 07/11/2014 Office visit Heena Dumont MD 07/01/2014 Office visit Heena Dumont MD 06/25/2014 Office visit Kaylynn Mendez VARNISHING MACHINE OPERATOR 06/12/2014 Office visit Kaylynn Mendez VARNISHING MACHINE OPERATOR 06/06/2014 Office visit Kaylynn Mendez VARNISHING MACHINE OPERATOR 05/27/2014 Office visit Heena Dumont MD 04/20/2014 Office visit Yesica Falcon VARNISHING MACHINE OPERATOR 03/29/2014 Office visit Na Jones VARNISHING MACHINE OPERATOR 03/15/2014 Office visit Heena Dumont MD 2014 Office visit Heena Dumont MD 2014 [facility] Eliseo Hoskins MD 02/27/2014 Nurse visit Heena Dumont MD 02/13/2014 Office visit Lena El VARNISHING MACHINE OPERATOR 02/07/2014 Office visit Heena Dumont MD 02/03/2014 Office visit Na Jones VARNISHING MACHINE OPERATOR 01/30/2014 Office visit Kaylynn Mendez VARNISHING MACHINE OPERATOR 01/24/2014 Office visit Sundeep Russell VARNISHING MACHINE OPERATOR 01/16/2014 Office visit Kaylynn Mendez VARNISHING MACHINE OPERATOR 01/10/2014 Nurse visit Kaylynn Mendez VARNISHING MACHINE OPERATOR 01/08/2014 Office visit Kaylynn Walker VARNISHING MACHINE OPERATOR 12/05/2013 Office visit Kaylynn Mendez VARNISHING MACHINE OPERATOR 11/21/2013 Office visit Kaylynn Mendez VARNISHING MACHINE OPERATOR 10/23/2013 Office visit Brittni Yanez VARNISHING MACHINE OPERATOR 10/17/2013 Nurse visit Heena Dumont MD 10/12/2013 Office visit Kaylynn Mendez VARNISHING MACHINE OPERATOR 10/02/2013 Office visit Heena Dumont MD 09/20/2013 Nurse visit Kaylynn Mendez VARNISHING MACHINE OPERATOR 09/20/2013 Voided Heena Dumont MD 09/14/2013 Office visit Kaylynn Walker VARNISHING MACHINE OPERATOR 09/05/2013 Office visit Sundeep Russell VARNISHING MACHINE OPERATOR 09/04/2013 Nurse visit Kaylynn Walker VARNISHING MACHINE OPERATOR 08/31/2013 Office visit Kaylynn Mendez VARNISHING MACHINE OPERATOR 08/23/2013 Office visit Heena Dumont MD 08/10/2013 Office visit Kaylynn Walker VARNISHING MACHINE OPERATOR 07/25/2013 Office visit Kaylynn Walker VARNISHING MACHINE OPERATOR 07/18/2013 Office visit Kaylynn Walker VARNISHING MACHINE OPERATOR 07/12/2013 Office visit Kaylynn Walker VARNISHING MACHINE OPERATOR 06/28/2013 Nurse visit Kaylynn Walker VARNISHING MACHINE OPERATOR 06/14/2013 Nurse visit Kaylynn Walker VARNISHING MACHINE OPERATOR 06/08/2013 Nurse visit Kaylynn Walker VARNISHING MACHINE OPERATOR 05/31/2013 Nurse visit Chadd Norris DO 05/18/2013 Office visit Terese Davidson MD 05/16/2013 Office visit Kaylynn Mendez VARNISHING MACHINE OPERATOR 05/09/2013 Office visit Kaylynn Mendez VARNISHING MACHINE OPERATOR 04/29/2013 [facility] John Hoskins MD 04/25/2013 Nurse visit Kaylynn Walker VARNISHING MACHINE OPERATOR 04/17/2013 Office visit Kaylynn Walker VARNISHING MACHINE OPERATOR 04/03/2013 Nurse visit Kaylynn Walker VARNISHING MACHINE OPERATOR 04/03/2013 Office visit Terese Davisdon MD 03/28/2013 Office visit Sundeep Russell VARNISHING MACHINE OPERATOR 03/21/2013 Office visit Kaylynn Mendez VARNISHING MACHINE OPERATOR 03/20/2013 Office visit Terese Davidson MD 03/14/2013 Nurse visit Kaylynn Walker VARNISHING MACHINE OPERATOR 03/05/2013 Nurse visit Kaylynn Walker VARNISHING MACHINE OPERATOR 02/19/2013 Office visit Terese Davidson MD 02/16/2013 Nurse visit Kaylynn Walker VARNISHING MACHINE OPERATOR 02/09/2013 Office visit Sundeep Russell VARNISHING MACHINE OPERATOR 02/08/2013 Nurse visit Kaylynn Walker VARNISHING MACHINE OPERATOR 02/01/2013 Nurse visit Kaylynn Walker VARNISHING MACHINE OPERATOR 01/26/2013 Nurse visit Sabrina Andrea CAMP ADVISOR 01/25/2013 Office visit Kaylynn Mendez VARNISHING MACHINE OPERATOR 01/22/2013 Office visit Yoan Castaneda MD 01/18/2013 Nurse visit Kaylynn Walker VARNISHING MACHINE OPERATOR 01/11/2013 Nurse visit Kaylynn Walker VARNISHING MACHINE OPERATOR 01/05/2013 Nurse visit Kaylynn Walker VARNISHING MACHINE OPERATOR 12/29/2012 Office visit Kaylynn Walker VARNISHING MACHINE OPERATOR 11/27/2012 Office visit Kaylynn Mendez VARNISHING MACHINE OPERATOR 11/08/2012 Office visit Odell Tierney MD 11/08/2012 Voided Odell Tierney MD 11/07/2012 Office visit Kaylynn Walker VARNISHING MACHINE OPERATOR 10/31/2012 [facility] John Hoskins MD 10/31/2012 Office visit Kaylynn Walker VARNISHING MACHINE OPERATOR 10/19/2012 Office visit Genoveva Ayala VARNISHING MACHINE OPERATOR 10/10/2012 Office visit Kaylynn Walker VARNISHING MACHINE OPERATOR 10/03/2012 Office visit Kaylynn Walker VARNISHING MACHINE OPERATOR 09/26/2012 Office visit Kaylynn Walker VARNISHING MACHINE OPERATOR 09/06/2012 Office visit Kaylynn Mendez VARNISHING MACHINE OPERATOR 09/06/2012 Office visit Odell Tierney MD 08/31/2012 Voided Kaylynn Mendez VARNISHING MACHINE OPERATOR 07/28/2012 Office visit Kaylynn Mendez VARNISHING MACHINE OPERATOR 07/27/2012 Office visit David Joyner DO 07/20/2012 [facility] David Joyner DO 07/13/2012 [facility] David Joyner DO 07/11/2012 Office visit Kaylynn Mendez VARNISHING MACHINE OPERATOR 06/27/2012 [facility] Odell Tierney MD 06/21/2012 Office visit David Joyner DO 06/21/2012 Office visit Odell Tierney MD 06/20/2012 Office visit Brittni Yanez VARNISHING MACHINE OPERATOR 06/06/2012 Office visit Odell Tierney MD 05/03/2012 Office visit Kaylynn Mendez VARNISHING MACHINE OPERATOR 04/28/2012 Office visit Brittni Yanez VARNISHING MACHINE OPERATOR 04/11/2012 Office visit Kaylynn Andrea VARNISHING MACHINE OPERATOR 04/06/2012 [facility] Hos[facility] MD 03/30/2012 Office visit Kaylynn Mendez VARNISHING MACHINE OPERATOR 03/15/2012 Office visit Kaylynn Mendez VARNISHING MACHINE OPERATOR 03/15/2012 Office visit Odell Tierney MD 02/09/2012 Office visit Kaylynn Andrea VARNISHING MACHINE OPERATOR 12/23/2011 Office visit Kaylynn Andrea VARNISHING MACHINE OPERATOR 11/02/2011 Office visit Kaylynn Andrea VARNISHING MACHINE OPERATOR 10/14/2011 Office visit Kaylynn Andrea VARNISHING MACHINE OPERATOR 09/27/2011 Office visit Kaylynn Andrea VARNISHING MACHINE OPERATOR 08/19/2011 [facility] Hos[facility] MD 08/18/2011 [facility] Hoskins MD 08/18/2011 Office visit Kaylynn Andrea VARNISHING MACHINE OPERATOR 08/02/2011 Office visit Kaylynn Andrea VARNISHING MACHINE OPERATOR 07/08/2011 Office visit Kaylynn Andrea VARNISHING MACHINE OPERATOR 07/05/2011 Office visit Odell Tierney MD 06/15/2011 Office visit Kaylynn Mendez VARNISHING MACHINE OPERATOR 05/14/2011 Office visit Kaylynn Mendez VARNISHING MACHINE OPERATOR 05/11/2011 Office visit Odell Tierney MD 04/28/2011 Office visit Kaylynn Mendez VARNISHING MACHINE OPERATOR 03/02/2011 Office visit Chadd Norris [...]
--- OUTSIDE RECORDS SUMMARY | 2018-05-10 05:35 | XMS REPORT ---
Author Author Kaylynn Mendez Organization [facility] Address [address] [place], [place] [id number] Care Team Providers Care Chemistry Quality Control Analyst Name Role Phone Kaylynn Mendez PCP Unavailable Allergies and Adverse Reactions Name Reaction Notes Aspirin Methadone Ultram Vicodin Plan of Treatment Planned Activity Comments Planned Date Planned Time Plan/Goal INFLUENZA A/B AG EIA 04/29/2015 12:00 AM ELECTROCARDIOGRAM COMPLETE 10/31/2012 12:00 AM [...] 08/27/2014 use as directed for 99 days [place] 5-325 mg oral tablet 06/17/2014 06/27/2014 take [...] a day as needed for 30 days tnjrgidp-cvsezuffh-UJ 3.5-10,000-1 mg/mL-unit/mL-% otic drops,suspension 201401/08/2015 instill 4 [...] SPINE CERVICAL 2 OR 3 VIEWS Returned 04/28/2011 12:00 AM THER/PROPH/DIAG INJ SC/IM Reviewed 04/28/2011 12:00 AM Decadron 1 mg ND#[id number] (Jr) Reviewed 04/28/2011 12:00 AM Depo-Medrol 80 mg NDC#[id number]-Eszdpgzh Reviewed 05/11/2011 12:00 AM N BLOCK INJ OCCIPITAL Reviewed 05/11/2011 12:00 AM Kenalog Da-[id number] ANNA Reviewed 06/15/2011 12:00 AM COMPLETE CBC W/AUTO DIFF WBC Returned 06/15/2011 12:00 AM COMPREHEN METABOLIC PANEL Returned 07/08/2011 12:00 AM THER/PROPH/DIAG INJ SC/IM Reviewed 07/08/2011 12:00 AM Toradol,15mg ND#[id number], Brunildaer Reviewed 07/08/2011 12:00 AM Phenergan 50 Mg Im Nd 2169-9136-15 ALLIE Hoskins Reviewed 08/02/2011 12:00 AM THER/PROPH/DIAG INJ SC/IM Reviewed 08/02/2011 12:00 AM Decadron 1 mg NDC#[id number] (Jr) Reviewed 08/02/2011 12:00 AM Depo-Medrol 80 mg NDC#[id number]-Dmrihsih Reviewed 09/27/2011 12:00 AM THER/PROPH/DIAG INJ SC/IM Reviewed 09/27/2011 12:00 AM Depo-Medrol 80 mg NDC#[id number]-Whbyiuye Reviewed 10/14/2011 12:00 AM X-RAY EXAM OF ABDOMEN Returned 10/14/2011 12:00 AM URINALYSIS AUTO W/O SCOPE Reviewed 12/23/2011 12:00 AM THER/PROPH/DIAG INJ SC/IM Reviewed 12/23/2011 12:00 AM Decadron 1 mg NDC#[id number] (Jr) Reviewed 12/23/2011 12:00 AM Depo-Medrol 80 mg NDC#[id number]-Hzbzjpxx Reviewed 02/09/2012 12:00 AM THER/PROPH/DIAG INJ SC/IM Reviewed 02/09/2012 12:00 AM Decadron 1 mg NDC#[id number] (Jr) Reviewed 02/09/2012 12:00 AM Depo-Medrol 80 mg NDC#[id number]-[place]hkonan Reviewed 03/15/2012 12:00 AM N BLOCK INJ OCCIPITAL Reviewed 03/15/2012 12:00 AM Kenalog My-[address]-20 ANNA Reviewed 04/11/2012 12:00 AM COMPLETE CBC W/AUTO DIFF WBC Returned 04/11/2012 12:00 AM COMPREHEN METABOLIC PANEL Returned 04/11/2012 12:00 AM LIPID PANEL Returned 04/11/2012 12:00 AM ASSAY THYROID STIM HORMONE Returned 06/20/2012 12:00 AM THER/PROPH/DIAG INJ SC/IM Reviewed 06/20/2012 12:00 AM Decadron, Per 1 Mg ND# [address]-63 Reviewed 06/20/2012 12:00 AM Depo-Medrol, Per 80 Mg NDC#7956-6140-57 Reviewed 09/06/2012 12:00 AM N BLOCK INJ OCCIPITAL Reviewed 09/06/2012 12:00 AM Kenalog Ef-[address]-20 ANNA Reviewed 09/06/2012 12:00 AM X-RAY EXAM RIBS UNI 2 VIEWS Returned 09/26/2012 12:00 AM THER/PROPH/DIAG INJ SC/IM Reviewed 09/26/2012 12:00 AM Decadron, Per 1 Mg ND# [address]-33 Reviewed 09/26/2012 12:00 AM Depo-Medrol, Per 80 Mg [facility] [place]5226-0841-39 Reviewed 10/03/2012 12:00 AM URINALYSIS AUTO W/O SCOPE Reviewed 10/03/2012 12:00 AM THER/PROPH/DIAG INJ SC/IM Reviewed 10/03/2012 12:00 AM Toradol 60 Mg [facility] [place]1726-9174-25 Reviewed 10/03/2012 12:00 AM Phenergan, 25Mg [facility] [place]5680-6166-49 Reviewed 10/19/2012 12:00 AM N BLOCK INJ OCCIPITAL Reviewed 10/19/2012 12:00 AM Kenalog, Per 10 Mg [facility] [place]8068-5470-23 Reviewed 10/19/2012 12:00 AM Toradol 30 Mg [facility] [place]9353-2754-65 Reviewed 10/19/2012 12:00 AM THER/PROPH/DIAG INJ SC/IM Reviewed 10/31/2012 12:00 AM COMPLETE CBC W/AUTO DIFF WBC Returned 10/31/2012 12:00 AM COMPREHEN METABOLIC PANEL Returned 10/31/2012 12:00 AM LIPID PANEL Returned 11/03/2012 12:[address] THORAX W/O & W/DYE Returned 11/08/2012 12:00 AM N BLOCK INJ OCCIPITAL Reviewed 11/08/2012 12:00 AM Kenalog Xx-[address]-20 ANNA Reviewed 11/27/2012 12:00 AM COMPLETE CBC [...] 01/25/2013 12:00 AM Decadron, Per 1 Mg NDC# [address]-50 Reviewed 01/25/2013 12:00 AM Depo-Medrol, Per 80 Mg [facility] [place]2267-5422-15 Reviewed 01/26/2013 12:00 AM IMMUNOTHERAPY INJECTIONS Returned [...] Mg [facility] [place] [address]-66 Reviewed 05/16/2013 12:00 AM Depo-Medrol, Per 80 Mg [facility] [place]#1468-9606-68 Reviewed 05/31/2013 12:00 AM IMMUNOTHERAPY INJECTIONS Reviewed 06/08/2013 12:00 AM IMMUNOTHERAPY INJECTIONS Reviewed 06/14/2013 12:00 AM IMMUNOTHERAPY INJECTIONS Reviewed 06/28/2013 12:00 AM IMMUNOTHERAPY INJECTIONS Reviewed 07/12/2013 12:00 AM X-RAY EXAM RIBS UNI 2 VIEWS Returned 07/18/2013 12:00 AM Toradol 60 Mg [facility] [place]1769-8379-07 Reviewed 07/18/2013 12:00 AM THER/PROPH/DIAG INJ SC/IM [...] Mg [facility] [place] [address]-27 Reviewed 09/14/2013 12:00 AM Depo-Medrol, Per 80 Mg [facility] [place]#0093-2359-03 Reviewed 09/20/2013 12:00 AM IMMUNOTHERAPY INJECTIONS Reviewed [...] INJ OCCIPITAL Reviewed 12/10/2009 12:00 AM Kenalog Ka-[address]-20 ANNA Reviewed 12/16/2009 12:00 AM HIV-1ANTIBODY Reviewed 12/16/2009 12:00 AM COMPLETE CBC W/AUTO DIFF WBC Reviewed 12/16/2009 12:00 AM METABOLIC PANEL TOTAL CA Reviewed 12/16/2009 12:00 AM Type and screen Reviewed 12/16/2009 12:00 AM PROTHROMBIN TIME Reviewed 12/16/2009 12:00 AM THROMBOPLASTIN TIME PARTIAL Reviewed 03/18/2010 12:00 AM DRAIN/INJ JOINT/BURSA W/O US Reviewed 03/18/2010 12:00 AM Kenalog Ih-[address]-20 ANNA Reviewed 11/21/2013 12:00 AM RADEX HAND MINIMUM 3 VIEWS Returned 06/03/2010 12:00 AM INJ TRIGGER POINT 1/2 MUSCL Reviewed 06/03/2010 12:00 AM Kenalog per 10Mg [facility]#[address]-08(Niall) Reviewed 12/05/2013 12:00 AM COMPLETE CBC W/AUTO [...] 12:00 AM Kenalog per 10Mg [facility]#[address]-05(Niall) Reviewed 2014 12:00 AM COMPLETE CBC W/AUTO [...] INJ OCCIPITAL Reviewed 10/01/2010 12:00 AM Kenalog Tw-[address]-20 ANNA Reviewed 07/25/2014 12:00 AM THER/PROPH/DIAG INJ [...] 0.60 mg/dLCALCIUM 10.90 mg/ dLeGFR >60 mL/min/1.73 [id number] 45.0 U/L 08/31/2013 10:54 AM GLUCOSE 255.0 [...] 0.40 mg/ dLCALCIUM 10.60 mg/dLeGFR >60 mL/min/1.73 [id number] 369.0 mg/ dLCHOLESTEROL 153.0 mg/dLHDL 26.0 mg/dLLDL [...] BILI 0.30 mg/dLCALCIUM 10.0 mg/dLeGFR >60 mL/min/1.73 [id number] YELLOW APPEARANCE CLEAR SPEC GRAV 1.010 pH 5.5 PROTEIN NEGATIVE GLUCOSE NEGATIVE KETONE NEGATIVE BILIRUBIN NEGATIVE BLOOD NEGATIVE NITRITE NEGATIVE LEUK SCREEN NEGATIVE Est Avg Glucose 134.1 mg/dLMICROALBUMIN UR <0.5 MG/DL 02/13/2015 4:38 PM RMSF, IgG, EIA Negative Dejuan Lan Spotted Fever,IgM 0.51 E. chaffeensis (HME) IgGTiter [...] 141 Influenza 04/24/2014 sanofi pasteur PMC Fluzone [id number] Intramuscular Left Upper Arm 02/27/2014 01/15/2014 141 Influenza 02/13/2015 sanofi pasteur PMC Fluzone [id number] Intramuscular Left Deltoid 02/13/2015 01/03/2015 140 History [...] 2014 3:51PM Elevated liver enzymes Feb 2 2014 3:51PM Sternal pain Feb 12 2015 4:22PM Right Otitis Media, Acute Jul 17 [...] Date Medicare Part A Medicare Part A [id number] N/A [facility] Comm [id number] N/A [place] [facility] [employer] [facility] Technician Prog - [facility] Technician Prog - [facility] [id number] [facility] Comm Plan of [id number] Wednesday, 2012 Medicare Part B Medicare [facility] [id number] Monday, 2000 [place] [facility] [employer] [facility] [place] [facility] [id number] Tuesday, 2009 History of Encounters Visit Date Visit Type Provider 04/29/2015 Office visit Kaylynn Mendez APRN 03/27/2015 Voided Brittni Yanez BENCH ASSEMBLY INSPECTOR 03/21/2015 Office visit Heena Dumont MD 03/12/2015 Office visit Kaylynn Mendez BENCH ASSEMBLY INSPECTOR 02/26/2015 Office visit Brittni Yanez BENCH ASSEMBLY INSPECTOR 02/13/2015 Office visit Heena Dumont MD 01/15/2015 Office visit Brittni Yanez BENCH ASSEMBLY INSPECTOR 01/13/2015 Office visit Heena Dumont MD 01/08/[address] Carol Fowler MD 01/01/2015 Office visit Brittni Yanez BENCH ASSEMBLY INSPECTOR 12/13/2014 Office visit Heena Dumont MD 11/27/2014 Office visit Kaylynn Mendez BENCH ASSEMBLY INSPECTOR 11/14/2014 Office visit Heena Dumont MD 10/18/2014 Office visit Heena Dumont MD 10/17/2014 Hospital Eliseo Hoskins MD 10/09/2014 Office visit Heena Dumont MD 09/25/2014 Office visit Heena Dumont MD 09/17/2014 Office visit Kaylynn Mendez BENCH ASSEMBLY INSPECTOR 09/04/2014 Office visit Heena Dumont MD 08/28/2014 Office visit Kaylynn Mendez BENCH ASSEMBLY INSPECTOR 08/23/2014 Hospital Eliseo Hoskins MD 08/01/2014 Office visit Kaylynn Mendez BENCH ASSEMBLY INSPECTOR 07/29/2014 Office visit Heena Dumont MD 07/25/2014 Nurse visit Heena Dumont MD 07/17/2014 Office visit Kaylynn Mendez BENCH ASSEMBLY INSPECTOR 07/11/2014 Office visit Heena Dumont MD 07/01/2014 Office visit Heena Dumont MD 06/25/2014 Office visit Kaylynn Mendez BENCH ASSEMBLY INSPECTOR 06/12/2014 Office visit Kaylynn Mendez BENCH ASSEMBLY INSPECTOR 06/06/2014 Office visit Kaylynn Mendez BENCH ASSEMBLY INSPECTOR 05/27/2014 Office visit Heena Dumont MD 04/20/2014 Office visit Yesica Falcon BENCH ASSEMBLY INSPECTOR 03/29/2014 Office visit Na Jones BENCH ASSEMBLY INSPECTOR 03/15/2014 Office visit Heena Dumont MD 2014 Office visit Heena Dumont MD 2014 Hospital John Hoskins MD 02/27/2014 Nurse visit Heena Dumont MD 02/13/2014 Office visit Lena El BENCH ASSEMBLY INSPECTOR 02/07/2014 Office visit Heena Dumont MD 02/03/2014 Office visit Na Jones BENCH ASSEMBLY INSPECTOR 01/30/2014 Office visit Kaylynn Mendez BENCH ASSEMBLY INSPECTOR 01/24/2014 Office visit Sundeep Russell BENCH ASSEMBLY INSPECTOR 01/16/2014 Office visit Kaylynn Mendez BENCH ASSEMBLY INSPECTOR 01/10/2014 Nurse visit Kaylynn Walker BENCH ASSEMBLY INSPECTOR 01/08/2014 Office visit Kaylynn Walker BENCH ASSEMBLY INSPECTOR 12/05/2013 Office visit Kaylynn Walker BENCH ASSEMBLY INSPECTOR 11/21/2013 Office visit Kaylynn Walker BENCH ASSEMBLY INSPECTOR 10/23/2013 Office visit Brittni Yanez BENCH ASSEMBLY INSPECTOR 10/17/2013 Nurse visit Heena Dumont MD 10/12/2013 Office visit Kaylynn Mendez BENCH ASSEMBLY INSPECTOR 10/02/2013 Office visit Heena Dumont MD 09/20/2013 Nurse visit Kaylynn Walker BENCH ASSEMBLY INSPECTOR 09/20/2013 Voided Heena Dumont MD 09/14/2013 Office visit Kaylynn Walker BENCH ASSEMBLY INSPECTOR 09/05/2013 Office visit Sundeep Russell BENCH ASSEMBLY INSPECTOR 09/04/2013 Nurse visit Kaylynn Walker BENCH ASSEMBLY INSPECTOR 08/31/2013 Office visit Kaylynn Walker BENCH ASSEMBLY INSPECTOR 08/23/2013 Office visit Heena Dumont MD 08/10/2013 Office visit Kaylynn Walker BENCH ASSEMBLY INSPECTOR 07/25/2013 Office visit Kaylynn Walker BENCH ASSEMBLY INSPECTOR 07/18/2013 Office visit Kaylynn Walker BENCH ASSEMBLY INSPECTOR 07/12/2013 Office visit Kaylynn Walker BENCH ASSEMBLY INSPECTOR 06/28/2013 Nurse visit Kaylynn Walker BENCH ASSEMBLY INSPECTOR 06/14/2013 Nurse visit Kaylynn Walker BENCH ASSEMBLY INSPECTOR 06/08/2013 Nurse visit Kaylynn Walker BENCH ASSEMBLY INSPECTOR 05/31/2013 Nurse visit Chadd Norris DO 05/18/2013 Office visit Terese Davidson MD 05/16/2013 Office visit Kaylynn Mendez BENCH ASSEMBLY INSPECTOR 05/09/2013 Office visit Kaylynn Mendez BENCH ASSEMBLY INSPECTOR 04/29/2013 [facility] Eliseo Hoskins MD 04/25/2013 Nurse visit Kaylynn Walker BENCH ASSEMBLY INSPECTOR 04/17/2013 Office visit Kaylynn Walker BENCH ASSEMBLY INSPECTOR 04/03/2013 Nurse visit Kaylynn Mendez BENCH ASSEMBLY INSPECTOR 04/03/2013 Office visit Terese Davidson MD 03/28/2013 Office visit Sundeep Russell BENCH ASSEMBLY INSPECTOR 03/21/2013 Office visit Kaylynn Mendez BENCH ASSEMBLY INSPECTOR 03/20/2013 Office visit Terese Davidson MD 03/14/2013 Nurse visit Kaylynn Mendez BENCH ASSEMBLY INSPECTOR 03/05/2013 Nurse visit Kaylynn Mendez BENCH ASSEMBLY INSPECTOR 02/19/2013 Office visit Terese Davidson MD 02/16/2013 Nurse visit Kaylynn Mendez BENCH ASSEMBLY INSPECTOR 02/09/2013 Office visit Sundeep Russell BENCH ASSEMBLY INSPECTOR 02/08/2013 Nurse visit Kaylynn Mendez BENCH ASSEMBLY INSPECTOR 02/01/2013 Nurse visit Kaylynn Walker BENCH ASSEMBLY INSPECTOR 01/26/2013 Nurse visit Sabrina Mendez 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 01/25/2013 Office visit Kaylynn Mendez BENCH ASSEMBLY INSPECTOR 01/22/2013 Office visit Yoan Castaneda MD 01/18/2013 Nurse visit Kaylynn Walker BENCH ASSEMBLY INSPECTOR 01/11/2013 Nurse visit Kaylynn Walker BENCH ASSEMBLY INSPECTOR 01/05/2013 Nurse visit Kaylynn Walker BENCH ASSEMBLY INSPECTOR 12/29/2012 Office visit Kaylynn Walker BENCH ASSEMBLY INSPECTOR 11/27/2012 Office visit Kaylynn Walker BENCH ASSEMBLY INSPECTOR 11/08/2012 Office visit Odell Tierney MD 11/08/2012 Voided Odell Tierney MD 11/07/2012 Office visit Kaylynn Walker BENCH ASSEMBLY INSPECTOR 10/31/2012 [facility] John Hoskins MD 10/31/2012 Office visit Kaylynn Walker BENCH ASSEMBLY INSPECTOR 10/19/2012 Office visit Genoveva Ayaal BENCH ASSEMBLY INSPECTOR 10/10/2012 Office visit Kaylynn Walker BENCH ASSEMBLY INSPECTOR 10/03/2012 Office visit Kaylynn Walker BENCH ASSEMBLY INSPECTOR 09/26/2012 Office visit Kaylynn Walker BENCH ASSEMBLY INSPECTOR 09/06/2012 Office visit Kaylynn Walker BENCH ASSEMBLY INSPECTOR 09/06/2012 Office visit Odell Tierney MD 08/31/2012 Voided Kaylynn Mendez BENCH ASSEMBLY INSPECTOR 07/28/2012 Office visit Kaylynn Walker BENCH ASSEMBLY INSPECTOR 07/27/2012 Office visit David Joyner DO 07/20/2012 [facility] David Joyner DO 07/13/2012 [facility] DO 07/11/2012 Office visit Kaylynn Mendez BENCH ASSEMBLY INSPECTOR 06/27/2012 [facility] Odell Tierney MD 06/21/2012 Office visit David Joyner DO 06/21/2012 Office visit Odell Tierney MD 06/20/2012 Office visit Brittni Yanez BENCH ASSEMBLY INSPECTOR 06/06/2012 Office visit Odell Tierney MD 05/03/2012 Office visit Kaylynn Mendez BENCH ASSEMBLY INSPECTOR 04/28/2012 Office visit Birttni Yanez BENCH ASSEMBLY INSPECTOR 04/11/2012 Office visit Kaylynn Mendez BENCH ASSEMBLY INSPECTOR 04/06/2012 [facility] John Hoskins MD 03/30/2012 Office visit Kaylynn Walker BENCH ASSEMBLY INSPECTOR 03/15/2012 Office visit Kaylynn Andrea BENCH ASSEMBLY INSPECTOR 03/15/2012 Office visit Odell Tierney MD 02/09/2012 Office visit Kaylynn Walker BENCH ASSEMBLY INSPECTOR 12/23/2011 Office visit Kaylynn Walker BENCH ASSEMBLY INSPECTOR 11/02/2011 Office visit Kaylynn Walker BENCH ASSEMBLY INSPECTOR 10/14/2011 Office visit Kaylynn Walker BENCH ASSEMBLY INSPECTOR 09/27/2011 Office visit Kaylynn Walker BENCH ASSEMBLY INSPECTOR 08/19/2011 Hospital John Hoskins MD 08/18/2011 [facility] John Hoskins MD 08/18/2011 Office visit Kaylynn Walker BENCH ASSEMBLY INSPECTOR 08/02/2011 Office visit Kaylynn Walker BENCH ASSEMBLY INSPECTOR 07/08/2011 Office visit Kaylynn Mendez BENCH ASSEMBLY INSPECTOR 07/05/2011 Office visit Odell Tierney MD 06/15/2011 Office visit Kaylynn Mendez BENCH ASSEMBLY INSPECTOR 05/14/2011 Office visit Kaylynn Mendez BENCH ASSEMBLY INSPECTOR 05/11/2011 Office visit Odell Tierney MD 04/28/2011 Office visit Kaylynn Andrea BENCH ASSEMBLY INSPECTOR 03/02/2011 Office visit Chadd Norris DO [...]
--- OUTSIDE RECORDS SUMMARY | 2018-05-10 05:42 | XMS REPORT ---
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 jgexhqjh-bnjgfhkxv-QW 3.5-10,000-1 mg/mL-unit/mL-% otic drops,suspension 201607/23/2016 instill 4 [...] HC BMI BSA BMI Percentile O2 Sat(%) 02/23/2017 5:33:00 PM 128 mmHg 73 mmHg [...] 12:00 AM Decadron 1 mg [facility]#[id number] (Jr) Reviewed 04/28/2011 12:00 AM Depo-Medrol 80 mg NDC#[id number]-Omvjtsgy Reviewed 09/02/2015 12:00 AM Toradol 60 Mg NDC#9479-8922-62 Reviewed 09/02/2015 12:00 AM Phenergan, Up to 50 Mg R[facility] Medicaid Reviewed 09/16/2015 12:00 AM Toradol 60 Mg NDC#0949-3685-58 Reviewed 09/16/2015 12:00 AM Phenergan Up to 50 mg RHC Medicare Reviewed 05/11/2011 12:00 AM N BLOCK INJ OCCIPITAL Reviewed 05/11/2011 12:00 AM Kenalog Sm-[address]-20 ANNA Reviewed 11/13/2015 12:00 AM ASSAY OF [...] INJ SC/IM Reviewed 07/08/2011 12:00 AM Toradol,15mg [facility]#[id number], [place] Reviewed 07/08/2011 12:00 AM Phenergan 50 Mg Im [facility] 5139-9520-52 FP [place] Reviewed 01/21/2016 12:00 AM ECG MONIT/REPRT UP TO 48 HRS Returned 08/02/2011 12:00 AM THER/PROPH/DIAG INJ SC/IM Reviewed 08/02/2011 12:00 AM Decadron 1 mg [facility]#[id number] (Jr) Reviewed 08/02/2011 12:00 AM Depo-Medrol 80 mg ND#[id number]-Ixycejqj Reviewed 03/05/2016 12:00 AM COMPLETE CBC W/AUTO DIFF WBC Reviewed 03/05/2016 12:00 AM STREP A ASSAY W/OPTIC Reviewed 03/05/2016 12:00 AM C-REACTIVE PROTEIN Reviewed 03/18/2016 12:00 AM [facility] MEDICARE - flu vaccine administration Reviewed [...] Reviewed 09/27/2011 12:00 AM Depo-Medrol 80 mg ND#[id number]-Vomlbaww Reviewed 09/27/2011 12:00 AM Depo-Medrol 40 mg [facility]#[id number] Reviewed 07/06/2016 12:00 AM CHEST X-RAY 4/> [...] Reviewed 12/23/2011 12:00 AM Decadron 1 mg [facility]#[id number] (Jr) Reviewed 12/23/2011 12:00 AM Depo-Medrol 80 mg NDC#[id number]-Tgduqdwg Reviewed 11/02/2016 11:45 AM URINALYSIS AUTO W/O [...] Reviewed 02/09/2012 12:00 AM Decadron 1 mg N[facility]#[id number] (Jr) Reviewed 02/09/2012 12:00 AM Depo-Medrol 80 mg ND#[id number]-Nhddhpwo Reviewed 02/21/2017 12:00 AM CULTURE OTHR SPECIMN AEROBIC Returned 02/21/2017 12:00 AM INFLUENZA ASSAY W/OPTIC Returned 02/23/2017 12:00 AM COMPLETE CBC W/AUTO DIFF WBC Reviewed 02/23/2017 12:00 AM X-RAY EXAM OF KNEE 3 Returned 03/15/2012 12:00 AM N BLOCK INJ OCCIPITAL Reviewed 03/15/2012 12:00 AM Kenalog Qy-[id number] ANNA Reviewed 04/11/2012 12:00 AM COMPLETE CBC W/AUTO DIFF WBC Reviewed 04/11/2012 12:00 AM COMPREHEN METABOLIC PANEL Reviewed 04/11/2012 12:00 AM LIPID PANEL Reviewed 04/11/2012 12:00 AM ASSAY THYROID STIM HORMONE Reviewed 04/11/2012 12:00 AM DESTRUCT PREMALG LES 2-14 Reviewed 06/20/2012 12:00 AM THER/PROPH/DIAG INJ SC/IM Reviewed 06/20/2012 12:00 AM Decadron, Per 1 Mg ND# [address]-35 Reviewed 06/20/2012 12:00 AM Depo-Medrol, Per 80 Mg ND#5352-2036-92 Reviewed 09/06/2012 12:00 AM N BLOCK INJ OCCIPITAL Reviewed 09/06/2012 12:00 AM Kenalog Gx-[address]-20 ANNA Reviewed 09/06/2012 12:00 AM X-RAY EXAM RIBS UNI 2 VIEWS Reviewed 09/26/2012 12:00 AM THER/PROPH/DIAG INJ SC/IM Reviewed 09/26/2012 12:00 AM Decadron, Per 1 Mg ND# [address]-05 Reviewed 09/26/2012 12:00 AM Depo-Medrol, Per 80 Mg ND#4358-1754-18 Reviewed 10/03/2012 12:00 AM URINALYSIS AUTO W/O SCOPE Reviewed 10/03/2012 12:00 AM THER/PROPH/DIAG INJ SC/IM Reviewed 10/03/2012 12:00 AM Toradol 60 Mg ND#5789-1796-82 Reviewed 10/03/2012 12:00 AM Phenergan, 25Mg NDC#3153-3545-34 Reviewed 10/19/2012 12:00 AM N BLOCK INJ OCCIPITAL Reviewed 10/19/2012 12:00 AM Kenalog, Per 10 Mg [facility]#8205-6919-99 Reviewed 10/19/2012 12:00 AM Toradol 30 Mg [facility]#7244-7265-67 Reviewed 10/19/2012 12:00 AM THER/PROPH/DIAG INJ SC/IM Reviewed 10/31/2012 12:00 AM COMPLETE CBC W/AUTO DIFF WBC Reviewed 10/31/2012 12:00 AM COMPREHEN METABOLIC PANEL Reviewed 10/31/2012 12:00 AM LIPID PANEL Reviewed 10/31/2012 12:00 AM ELECTROCARDIOGRAM COMPLETE Reviewed 11/03/2012 12:[address] THORAX W/O & W/DYE Reviewed 11/08/2012 12:00 AM N BLOCK INJ OCCIPITAL Reviewed 11/08/2012 12:00 AM Kenalog Iy-[address]-20 ANNA Reviewed 11/27/2012 12:00 AM COMPLETE CBC [...] Decadron, Per 1 Mg [facility]# [address]-29 Reviewed 01/25/2013 12:00 AM Depo-Medrol, Per 80 Mg [facility]#1765-8659-81 Reviewed 01/26/2013 12:00 AM IMMUNOTHERAPY ONE INJECTION [...] Decadron, Per 1 Mg [facility]# [address]-48 Reviewed 05/16/2013 12:00 AM Depo-Medrol, Per 80 Mg [facility]#9259-7477-54 Reviewed 05/31/2013 12:00 AM IMMUNOTHERAPY INJECTIONS Reviewed 06/08/2013 12:00 AM IMMUNOTHERAPY INJECTIONS Reviewed 06/14/2013 12:00 AM IMMUNOTHERAPY INJECTIONS Reviewed 06/28/2013 12:00 AM IMMUNOTHERAPY INJECTIONS Reviewed 07/12/2013 12:00 AM X-RAY EXAM RIBS UNI 2 VIEWS Reviewed 07/18/2013 12:00 AM Toradol 60 Mg [facility]#7548-5284-64 Reviewed 07/18/2013 12:00 AM THER/PROPH/DIAG INJ SC/IM Reviewed 08/23/2013 12:00 AM COMPLETE CBC W/AUTO DIFF WBC Reviewed 08/23/2013 12:00 AM COMPREHEN METABOLIC PANEL Reviewed 08/23/2013 12:00 AM LIPID PANEL Reviewed 08/31/2013 12:00 AM X-RAY EXAM OF LOWER LEG Reviewed 09/04/2013 12:00 AM IMMUNOTHERAPY INJECTIONS Reviewed 09/14/2013 12:00 AM THER/PROPH/DIAG INJ SC/IM Reviewed 09/14/2013 12:00 AM Decadron, Per 1 Mg [facility]# [address]-33 Reviewed 09/14/2013 12:00 AM Depo-Medrol, Per 80 Mg [facility]#2596-9865-96 Reviewed 09/20/2013 12:00 AM IMMUNOTHERAPY INJECTIONS Reviewed [...] INJ OCCIPITAL Reviewed 12/10/2009 12:00 AM Kenalog Hc-[address]-20 ANNA Reviewed 12/16/2009 12:00 AM HIV-1ANTIBODY Reviewed 12/16/2009 12:00 AM COMPLETE CBC W/AUTO DIFF WBC Reviewed 12/16/2009 12:00 AM METABOLIC PANEL TOTAL CA Reviewed 12/16/2009 12:00 AM Type and screen Reviewed 12/16/2009 12:00 AM PROTHROMBIN TIME Reviewed 12/16/2009 12:00 AM THROMBOPLASTIN TIME PARTIAL Reviewed 03/18/2010 12:00 AM DRAIN/INJ JOINT/BURSA W/O US Reviewed 03/18/2010 12:00 AM Kenalog Cz-[address]-20 ANNA Reviewed 11/21/2013 12:00 AM RADEX HAND MINIMUM 3 VIEWS Reviewed 06/03/2010 12:00 AM INJ TRIGGER POINT 1/2 MUSCL Reviewed 06/03/2010 12:00 AM Kenalog per 10Mg -[facility]#[address]-71(Niall) Reviewed 12/05/2013 12:00 AM COMPLETE CBC W/AUTO [...] Reviewed 07/23/2010 12:00 AM INJ TRIGGER POINT /2 MUSCL Reviewed 07/23/2010 12:00 AM Kenalog per 10Mg Im-[facility]#[address]-71(Niall) Reviewed 2014 12:00 AM COMPLETE CBC W/AUTO [...] INJ OCCIPITAL Reviewed 10/01/2010 12:00 AM Kenalog Xi-[address]-20 ANNA Reviewed 07/25/2014 12:00 AM THER/PROPH/DIAG INJ [...] Quant,IgM <0.80 RMSF , IgG, EIA Negative [facility] Spotted Fever,IgM 0.51 E. chaffeensis (HME) IgGTiter [...] 141 Influenza 04/24/2014 sanofi pasteur PMC Fluzone [id number] Intramuscular Left Upper Arm 02/27/2014 01/15/2014 141 Influenza 02/13/2015 sanofi pasteur PMC Fluzone [id number] Intramuscular Left Deltoid 02/13/2015 01/03/2015 140 Tdap 06/06/2015 [employer] SKB BOOSTRIX [id number] Intramuscular Left Deltoid 06/06/2015 07/23/2014 115 Influenza 03/18/2016 sanofi pasteur PMC Fluzone [id number] Intramuscular Left Deltoid 03/17/2016 01/03/2015 141 History [...] left Feb 2 2014 3:51PM Tendon dysfunction Jul 01 2014 [...] Cough Jul 06 2016 10:48AM Otitis externa b 2016 10:48AM Bulging of cervical intervertebral disc b 2016 3:50PM Cervical spinal stenosis Feb 2016 3:50PM Lumbago b 10 2016 3:25PM [...] 5:37PM Knee swelling Feb 23 2017 5:37PM Payers Insurance Name Company Name Plan Name Plan Number Policy Number Policy Group Number Start Date Medicare [facility] Medicare RHC [id number] N/A [facility] Comm [id number] N/A Medicare Part A Medicare - Lab/Xray [id number] N/A Medicare Part B Medicare Of [place] [id number] Monday, February 28, 2000 [place] [employer] [place] [employer] [place] [id number] Tuesday, November 10, 2009 Medicare Part A Medicare Part A [id number] N/A [place] [employer] [place] [employer] [place] [id number] May [facility] Comm Plan of [id number] Wednesday, May 30, 2012 History of Encounters Visit Date Visit Type Provider 02/23/2017 Office visit Symone Marie SOFTWARE ENGINEERING PROJECT MANAGER 02/21/2017 Office visit Heena Dumont MD 02/15/2017 Office visit Heena Dumont MD 02/02/2017 Office visit Heena Dumont MD 01/07/2017 Office visit Riccardo Cardoza MD 01/03/2017 Office visit Heena Dumont MD 12/15/2016 Office visit Kaylynn Mendez SOFTWARE ENGINEERING PROJECT MANAGER 12/02/2016 Office visit Heena Dumont MD 11/23/2016 [facility] Eliseo Hoskins MD 11/23/2016 Office visit Kaylynn Mendez SOFTWARE ENGINEERING PROJECT MANAGER 11/17/2016 Office visit Kaylynn Mendez SOFTWARE ENGINEERING PROJECT MANAGER 11/05/2016 Office visit Riccardo Cardoza MD 11/02/2016 Office visit Heena Dumont MD 10/06/2016 Office visit Kaylynn Mendez SOFTWARE ENGINEERING PROJECT MANAGER 09/22/2016 Office visit Heena Dumont MD 09/09/2016 Office visit Kaylynn Mendez SOFTWARE ENGINEERING PROJECT MANAGER 08/27/2016 Office visit Riccardo Cardoza MD 08/26/2016 Office visit Heena Dumont MD 07/09/2016 Office visit Riccardo Cardoza MD 07/06/2016 Office visit Heena Dumont MD 06/18/2016 Office visit Kaylynn Mendez SOFTWARE ENGINEERING PROJECT MANAGER 06/07/2016 Office visit Sundeep Russell SOFTWARE ENGINEERING PROJECT MANAGER 06/04/2016 Office visit Heena Dumont MD 05/13/2016 Office visit Heena Dumont MD 05/03/2016 Office visit Heena Dumont MD 04/26/2016 Office visit Kaylynn Mendez SOFTWARE ENGINEERING PROJECT MANAGER 04/14/2016 Office visit Heena Dumont MD 04/13/2016 Office visit Kaylynn Mendez SOFTWARE ENGINEERING PROJECT MANAGER 04/02/2016 Office visit Lena El SOFTWARE ENGINEERING PROJECT MANAGER 04/02/2016 Office visit Heena Dumont MD 03/26/2016 Office visit Yesica Falcon SOFTWARE ENGINEERING PROJECT MANAGER 03/17/2016 Office visit Heena Dumont MD 03/05/2016 Office visit Kaylynn Mendez SOFTWARE ENGINEERING PROJECT MANAGER 02/16/2016 Office visit Heena Dumont MD 02/14/2016 Office visit Na Jones SOFTWARE ENGINEERING PROJECT MANAGER 01/16/2016 Office visit Heena Dumont MD 12/16/2015 Office visit Heena Dumont MD 11/24/2015 Office visit Kaylynn Mendez SOFTWARE ENGINEERING PROJECT MANAGER 11/18/2015 Office visit Heena Dumont MD 11/03/2015 Office visit Sundeep Russell SOFTWARE ENGINEERING PROJECT MANAGER 10/20/2015 Office visit Kaylynn Mendez SOFTWARE ENGINEERING PROJECT MANAGER 09/23/2015 Office visit Kaylnyn Mendez SOFTWARE ENGINEERING PROJECT MANAGER 09/16/[address] Pepe Figueroa MD 09/02/2015 Office visit Kaylynn Mendez SOFTWARE ENGINEERING PROJECT MANAGER 09/01/2015 Office visit Kaylynn Mendez SOFTWARE ENGINEERING PROJECT MANAGER 07/30/2015 Office visit Heena Dumont MD 07/15/2015 Office visit Kaylynn Mendez SOFTWARE ENGINEERING PROJECT MANAGER 07/04/2015 Office visit Heena Dmuont MD 06/06/2015 Office visit Heena Dumont MD 06/06/2015 Office visit Kaylynn Walker SOFTWARE ENGINEERING PROJECT MANAGER 06/02/2015 Office visit Kaylynn Walker SOFTWARE ENGINEERING PROJECT MANAGER 05/26/2015 Office visit Kaylynn Walker SOFTWARE ENGINEERING PROJECT MANAGER 05/20/2015 Office visit Kaylynn Walker SOFTWARE ENGINEERING PROJECT MANAGER 05/08/2015 Office visit Heena Dumont MD 05/06/2015 Office visit Kaylynn Walker SOFTWARE ENGINEERING PROJECT MANAGER 04/29/2015 Office visit Kaylynn Walker SOFTWARE ENGINEERING PROJECT MANAGER 03/27/2015 Voided Brittni Yanez SOFTWARE ENGINEERING PROJECT MANAGER 03/21/2015 Office visit Heena Dumont MD 03/12/2015 Office visit Kaylynn Mendez SOFTWARE ENGINEERING PROJECT MANAGER 02/26/2015 Office visit Brittni Yanez SOFTWARE ENGINEERING PROJECT MANAGER 02/13/2015 Office visit Heena Dumont MD 01/15/2015 Office visit Brittni Yanez SOFTWARE ENGINEERING PROJECT MANAGER 01/13/2015 Office visit Heena Dumont MD 01/08/[address] Carol Fowler MD 01/01/2015 Office visit Brittni Yanez SOFTWARE ENGINEERING PROJECT MANAGER 12/13/2014 Office visit Heena Dumont MD 11/27/2014 Office visit Kaylynn Mendez SOFTWARE ENGINEERING PROJECT MANAGER 11/14/2014 Office visit Heena Dumont MD 10/18/2014 Office visit Heena Dumont MD 10/17/2014 [facility] Eliseo Hoskins MD 10/09/2014 Office visit Heena Dumont MD 09/25/2014 Office visit Heena Dumont MD 09/17/2014 Office visit Kaylynn Mendez SOFTWARE ENGINEERING PROJECT MANAGER 09/04/2014 Office visit Heena Dumont MD 08/28/2014 Office visit Kaylynn Mendez SOFTWARE ENGINEERING PROJECT MANAGER 08/23/2014 [facility] John Hoskins MD 08/01/2014 Office visit Kaylynn Mendez SOFTWARE ENGINEERING PROJECT MANAGER 07/29/2014 Office visit Heena Dumont MD 07/25/2014 Nurse visit Heena Dumont MD 07/17/2014 Office visit Kaylynn Mendez SOFTWARE ENGINEERING PROJECT MANAGER 07/11/2014 Office visit Heena Dumont MD 07/01/2014 Office visit Heena Dumont MD 06/25/2014 Office visit Kaylynn Mendez SOFTWARE ENGINEERING PROJECT MANAGER 06/12/2014 Office visit Kaylynn Mendez SOFTWARE ENGINEERING PROJECT MANAGER 06/06/2014 Office visit Kaylynn Mendez SOFTWARE ENGINEERING PROJECT MANAGER 05/27/2014 Office visit Heena Dumont MD 04/20/2014 Office visit Yesica Falcon SOFTWARE ENGINEERING PROJECT MANAGER 03/29/2014 Office visit Na Jones SOFTWARE ENGINEERING PROJECT MANAGER 03/15/2014 Office visit Heena Dumont MD 2014 Office visit Heena Dumont MD 2014 [facility] John Hoskins MD 02/27/2014 Nurse visit Heena Dumont MD 02/13/2014 Office visit Lena El SOFTWARE ENGINEERING PROJECT MANAGER 02/07/2014 Office visit Heena Dumont MD 02/03/2014 Office visit Na Jones SOFTWARE ENGINEERING PROJECT MANAGER 01/30/2014 Office visit Kaylynn Mendez SOFTWARE ENGINEERING PROJECT MANAGER 01/24/2014 Office visit Sundeep Russell SOFTWARE ENGINEERING PROJECT MANAGER 01/16/2014 Office visit Kaylynn Walker SOFTWARE ENGINEERING PROJECT MANAGER 01/10/2014 Nurse visit Kaylynn Mendez SOFTWARE ENGINEERING PROJECT MANAGER 01/08/2014 Office visit Kaylynn Mendez SOFTWARE ENGINEERING PROJECT MANAGER 12/05/2013 Office visit Kaylynn Walker SOFTWARE ENGINEERING PROJECT MANAGER 11/21/2013 Office visit Kaylynn Mendez SOFTWARE ENGINEERING PROJECT MANAGER 10/23/2013 Office visit Brittni Yanez SOFTWARE ENGINEERING PROJECT MANAGER 10/17/2013 Nurse visit Heena Dumont MD 10/12/2013 Office visit Kaylynn Mendez SOFTWARE ENGINEERING PROJECT MANAGER 10/02/2013 Office visit Heena Dumont MD 09/20/2013 Nurse visit Kaylynn Mendez SOFTWARE ENGINEERING PROJECT MANAGER 09/20/2013 Voided Heena Dumont MD 09/14/2013 Office visit Kaylynn Walker SOFTWARE ENGINEERING PROJECT MANAGER 09/05/2013 Office visit Sundeep Russell SOFTWARE ENGINEERING PROJECT MANAGER 09/04/2013 Nurse visit Kaylynn Walker SOFTWARE ENGINEERING PROJECT MANAGER 08/31/2013 Office visit Kaylynn Walker SOFTWARE ENGINEERING PROJECT MANAGER 08/23/2013 Office visit Heena Dumont MD 08/10/2013 Office visit Kaylynn Mendez SOFTWARE ENGINEERING PROJECT MANAGER 07/25/2013 Office visit Kaylynn Walker SOFTWARE ENGINEERING PROJECT MANAGER 07/18/2013 Office visit Kaylynn Walker SOFTWARE ENGINEERING PROJECT MANAGER 07/12/2013 Office visit Kaylynn Walker SOFTWARE ENGINEERING PROJECT MANAGER 06/28/2013 Nurse visit Kaylynn Walker SOFTWARE ENGINEERING PROJECT MANAGER 06/14/2013 Nurse visit Kaylynn Walker SOFTWARE ENGINEERING PROJECT MANAGER 06/08/2013 Nurse visit Kaylynn Walker SOFTWARE ENGINEERING PROJECT MANAGER 05/31/2013 Nurse visit Chadd Norris DO 05/18/2013 Office visit Terese Davidson MD 05/16/2013 Office visit Kaylynn Walker SOFTWARE ENGINEERING PROJECT MANAGER 05/09/2013 Office visit Kaylynn Mendez SOFTWARE ENGINEERING PROJECT MANAGER 04/29/2013 [facility] John Hoskins MD 04/25/2013 Nurse visit Kaylynn Walker SOFTWARE ENGINEERING PROJECT MANAGER 04/17/2013 Office visit Kaylynn Mendez SOFTWARE ENGINEERING PROJECT MANAGER 04/03/2013 Nurse visit Kaylynn Mendez SOFTWARE ENGINEERING PROJECT MANAGER 04/03/2013 Office visit Terese Davidson MD 03/28/2013 Office visit Sundeep Russell SOFTWARE ENGINEERING PROJECT MANAGER 03/21/2013 Office visit Kaylynn Mendez SOFTWARE ENGINEERING PROJECT MANAGER 03/20/2013 Office visit Terese Davidson MD 03/14/2013 Nurse visit Kaylynn Mendez SOFTWARE ENGINEERING PROJECT MANAGER 03/05/2013 Nurse visit Kaylynn Mendez SOFTWARE ENGINEERING PROJECT MANAGER 02/19/2013 Office visit Terese Davidson MD 02/16/2013 Nurse visit Kaylynn Mendez SOFTWARE ENGINEERING PROJECT MANAGER 02/09/2013 Office visit Sundeep Russell SOFTWARE ENGINEERING PROJECT MANAGER 02/08/2013 Nurse visit Kaylynn Mendez SOFTWARE ENGINEERING PROJECT MANAGER 02/01/2013 Nurse visit Kaylynn Andrea SOFTWARE ENGINEERING PROJECT MANAGER 01/26/2013 Nurse visit Sabrina Andrea MULTIMEDIA SERVICES MANAGER 01/25/2013 Office visit Kaylynn Andrea SOFTWARE ENGINEERING PROJECT MANAGER 01/22/2013 Office visit Yoan Castaneda MD 01/18/2013 Nurse visit Kaylynn Mendez SOFTWARE ENGINEERING PROJECT MANAGER 01/11/2013 Nurse visit Kaylynn Andrea SOFTWARE ENGINEERING PROJECT MANAGER 01/05/2013 Nurse visit Kaylynn Andrea SOFTWARE ENGINEERING PROJECT MANAGER 12/29/2012 Office visit Kaylynn Andrea SOFTWARE ENGINEERING PROJECT MANAGER 11/27/2012 Office visit Kaylynn Mendez SOFTWARE ENGINEERING PROJECT MANAGER 11/08/2012 Office visit Odell Tierney MD 11/08/2012 Voided Odell Tierney MD 11/07/2012 Office visit Kaylynn Mendez SOFTWARE ENGINEERING PROJECT MANAGER 10/31/2012 [facility] John Hoskins MD 10/31/2012 Office visit Kaylynn Mendze SOFTWARE ENGINEERING PROJECT MANAGER 10/19/2012 Office visit Genoveva Ayala SOFTWARE ENGINEERING PROJECT MANAGER 10/10/2012 Office visit Kaylynn Mendez SOFTWARE ENGINEERING PROJECT MANAGER 10/03/2012 Office visit Kaylynn Mendez SOFTWARE ENGINEERING PROJECT MANAGER 09/26/2012 Office visit Kaylynn Mendez SOFTWARE ENGINEERING PROJECT MANAGER 09/06/2012 Office visit Kaylynn Mendez SOFTWARE ENGINEERING PROJECT MANAGER 09/06/2012 Office visit Odell Tierney MD 08/31/2012 Voided Kaylynn Mendez SOFTWARE ENGINEERING PROJECT MANAGER 07/28/2012 Office visit Kaylynn Mendez SOFTWARE ENGINEERING PROJECT MANAGER 07/27/2012 Office visit David Joyner DO 07/20/2012 [facility] David Joyner DO 07/13/2012 Hospital David Joyner DO 07/11/2012 Office visit Kaylynn Mendez SOFTWARE ENGINEERING PROJECT MANAGER 06/27/2012 [facility] Odell Tierney MD 06/21/2012 Office visit David Joyner DO 06/21/2012 Office visit Odell Tierney MD 06/20/2012 Office visit Brittni Yanez SOFTWARE ENGINEERING PROJECT MANAGER 06/06/2012 Office visit Odell Tierney MD 05/03/2012 Office visit Kaylynn Mendez SOFTWARE ENGINEERING PROJECT MANAGER 04/28/2012 Office visit Brittni Yanez SOFTWARE ENGINEERING PROJECT MANAGER 04/11/2012 Office visit Kaylynn Mendez SOFTWARE ENGINEERING PROJECT MANAGER 04/06/2012 Hospital John Hoskins MD 03/30/2012 Office visit Kaylynn Mendez SOFTWARE ENGINEERING PROJECT MANAGER 03/15/2012 Office visit Kaylynn Mendez SOFTWARE ENGINEERING PROJECT MANAGER 03/15/2012 Office visit Odell Tierney MD 02/09/2012 Office visit Kaylynn Mendez SOFTWARE ENGINEERING PROJECT MANAGER 12/23/2011 Office visit Kaylynn Walker SOFTWARE ENGINEERING PROJECT MANAGER 11/02/2011 Office visit Kaylynn Walker SOFTWARE ENGINEERING PROJECT MANAGER 10/14/2011 Office visit Kaylynn Walker SOFTWARE ENGINEERING PROJECT MANAGER 09/27/2011 Office visit Kaylynn Walker SOFTWARE ENGINEERING PROJECT MANAGER 08/19/2011 Hospital John Hoskins MD 08/18/2011 Hospital John Hoskins MD 08/18/2011 Office visit Kaylynn Mendez SOFTWARE ENGINEERING PROJECT MANAGER 08/02/2011 Office visit Kaylynn Walker SOFTWARE ENGINEERING PROJECT MANAGER 07/08/2011 Office visit Kaylynn Mendez SOFTWARE ENGINEERING PROJECT MANAGER 07/05/2011 Office visit Odell Tierney MD 06/15/2011 Office visit Kaylynn Mendez SOFTWARE ENGINEERING PROJECT MANAGER 05/14/2011 Office visit Kaylynn Andrea SOFTWARE ENGINEERING PROJECT MANAGER 05/11/2011 Office visit Odell Tierney MD 04/28/2011 Office visit Kaylynn Andrea SOFTWARE ENGINEERING PROJECT MANAGER 03/02/2011 Office visit Chadd Norris [...]
--- OUTSIDE RECORDS SUMMARY | 2018-05-10 05:54 | XMS REPORT ---
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 [employer] Tequila Lancets 33 gauge miscellaneous misc 01/21/2016 use as directed [employer] miscellaneous strip 01/21/2016 07/19/2016 Test 2x daily, Dx: E11.9 TEST STRIPS cetirizine 10 mg oral tablet 01/26/2016 TAKE 1 TABLET BY MOUTH EVERY DAY nortriptyline 10 mg oral capsule 01/28/2016 TAKE 1 CAPSULE BY ORAL ROUTE ONCE A DAY (AT BEDTIME) FOR 30 DAYS clobetasol-emollient 0.05 % topical foam 02/09/2016 APPLY BY EXTERNAL ROUTE ONCE DAILY omeprazole [...] 08/27/2014 use as directed for 99 days Alpine 5-325 mg oral tablet 06/17/2014 06/27/2014 take [...] a day as needed for 30 days mqmiwwhu-kmjcqgbpm-CC 3.5-10,000-1 mg/mL-unit/mL-% otic drops,suspension 201401/08/2015 instill 4 [...] carbamazepine 200 mg oral tablet extended release hr 10/18/2014 12/13/2014 take 1 tablet (200 [...] Reviewed 04/28/2011 12:00 AM Decadron 1 mg ND#[id number] (Jr) Reviewed 04/28/2011 12:00 AM Depo-Medrol 80 mg NDC#[id number]-Oaicdrab Reviewed 09/02/2015 12:00 AM Toradol 60 Mg NDC#4004-6212-70 Reviewed 09/02/2015 12:00 AM Phenergan, Up to 50 Mg RHC Medicaid Reviewed 09/16/2015 12:00 AM Toradol 60 Mg ND#5191-3333-96 Reviewed 09/16/2015 12:00 AM Phenergan Up to 50 mg RHC Medicare Reviewed 05/11/2011 12:00 AM N BLOCK INJ OCCIPITAL Reviewed 05/11/2011 12:00 AM Kenalog Ok-[address]-20 ANNA Reviewed 11/13/2015 12:00 AM ASSAY OF [...] 07/08/2011 12:00 AM Toradol,15mg [facility]#[id number], Brun[place] Reviewed 07/08/2011 12:00 AM Phenergan 50 Mg Im [facility] 3749-3436-15 [place] Reviewed 01/21/2016 12:00 AM ECG MONIT/REPRT UP TO 48 HRS Returned 08/02/2011 12:00 AM THER/PROPH/DIAG INJ SC/IM Reviewed 08/02/2011 12:00 AM Decadron 1 mg ND#[id number] (Jr) Reviewed 08/02/2011 12:00 AM Depo-Medrol 80 mg ND#[id number]-Bqxdhekh Reviewed 03/05/2016 12:00 AM COMPLETE CBC W/AUTO DIFF WBC Returned 03/05/2016 12:00 AM STREP A ASSAY W/OPTIC Returned 03/05/2016 12:00 AM C-REACTIVE PROTEIN Returned 03/18/2016 12:00 AM [facility] - flu vaccine administration Reviewed 03/18/2016 12:00 AM INFLUENZA VACCINE QUADRIVALENT 3 YRS PLUS IM Reviewed 09/27/2011 12:00 AM THER/PROPH/DIAG INJ SC/IM Reviewed 09/27/2011 12:00 AM Depo-Medrol 80 mg ND#[id number]-Uwkkbzai Reviewed 10/14/2011 12:00 AM X-RAY EXAM OF ABDOMEN Returned 10/14/2011 12:00 AM URINALYSIS AUTO W/O SCOPE Reviewed 12/23/2011 12:00 AM THER/PROPH/DIAG INJ SC/IM Reviewed 12/23/2011 12:00 AM Decadron 1 mg ND#[id number] (Jr) Reviewed 12/23/2011 12:00 AM Depo-Medrol 80 mg NDC#[id number]-Ficakcva Reviewed 02/09/2012 12:00 AM THER/PROPH/DIAG INJ SC/IM Reviewed 02/09/2012 12:00 AM Decadron 1 mg NDC#[id number] (Jr) Reviewed 02/09/2012 12:00 AM Depo-Medrol 80 mg NDC#[id number]-Wdbyxfzi Reviewed 03/15/2012 12:00 AM N BLOCK INJ OCCIPITAL Reviewed 03/15/2012 12:00 AM Kenalog Am-[address]-20 ANNA Reviewed 04/11/2012 12:00 AM COMPLETE CBC W/AUTO DIFF WBC Returned 04/11/2012 12:00 AM COMPREHEN METABOLIC PANEL Returned 04/11/2012 12:00 AM LIPID PANEL Returned 04/11/2012 12:00 AM ASSAY THYROID STIM HORMONE Returned 06/20/2012 12:00 AM THER/PROPH/DIAG INJ SC/IM Reviewed 06/20/2012 12:00 AM Decadron, Per 1 Mg ND# [address]-93 Reviewed 06/20/2012 12:00 AM Depo-Medrol, Per 80 Mg ND#0191-6951-84 Reviewed 09/06/2012 12:00 AM N BLOCK INJ OCCIPITAL Reviewed 09/06/2012 12:00 AM Kenalog Ii-[address]-20 ANNA Reviewed 09/06/2012 12:00 AM X-RAY EXAM RIBS UNI 2 VIEWS Returned 09/26/2012 12:00 AM THER/PROPH/DIAG INJ SC/IM Reviewed 09/26/2012 12:00 AM Decadron, Per 1 Mg ND# [address]-63 Reviewed 09/26/2012 12:00 AM Depo-Medrol, Per 80 Mg ND#1559-6897-42 Reviewed 10/03/2012 12:00 AM URINALYSIS AUTO W/O SCOPE Reviewed 10/03/2012 12:00 AM THER/PROPH/DIAG INJ SC/IM Reviewed 10/03/2012 12:00 AM Toradol 60 Mg ND#2778-9755-70 Reviewed 10/03/2012 12:00 AM Phenergan, 25Mg ND#8976-7895-66 Reviewed 10/19/2012 12:00 AM N BLOCK INJ OCCIPITAL Reviewed 10/19/2012 12:00 AM Kenalog, Per 10 Mg ND#8655-2504-71 Reviewed 10/19/2012 12:00 AM Toradol 30 Mg ND#2756-1087-65 Reviewed 10/19/2012 12:00 AM THER/PROPH/DIAG INJ SC/IM Reviewed 10/31/2012 12:00 AM COMPLETE CBC W/AUTO DIFF WBC Returned 10/31/2012 12:00 AM COMPREHEN METABOLIC PANEL Returned 10/31/2012 12:00 AM LIPID PANEL Returned 11/03/2012 12:[address] THORAX W/O & W/DYE Returned 11/08/2012 12:00 AM N BLOCK INJ OCCIPITAL Reviewed 11/08/2012 12:00 AM Kenalog Fs-[address]-20 ANNA Reviewed 11/27/2012 12:00 AM COMPLETE CBC [...] Decadron, Per [address] [facility]# [address]-31 Reviewed 01/25/2013 12:00 AM Depo-Medrol, Per [address] [facility]#8892-3123-46 Reviewed 01/26/2013 12:00 AM IMMUNOTHERAPY INJECTIONS Returned [...] Decadron, Per [address] [facility]# [address]-86 Reviewed 05/16/2013 12:00 AM Depo-Medrol, Per [address] [facility]#9772-7639-45 Reviewed 05/31/2013 12:00 AM IMMUNOTHERAPY INJECTIONS Reviewed 06/08/2013 12:00 AM IMMUNOTHERAPY INJECTIONS Reviewed 06/14/2013 12:00 AM IMMUNOTHERAPY INJECTIONS Reviewed 06/28/2013 12:00 AM IMMUNOTHERAPY INJECTIONS Reviewed 07/12/2013 12:00 AM X-RAY EXAM RIBS UNI 2 VIEWS Returned 07/18/2013 12:00 AM Toradol [address] [facility]#5120-8721-10 Reviewed 07/18/2013 12:00 AM THER/PROPH/DIAG INJ SC/IM Reviewed 08/23/2013 12:00 AM COMPLETE CBC W/AUTO DIFF WBC Reviewed 08/23/2013 12:00 AM COMPREHEN METABOLIC PANEL Reviewed 08/23/2013 12:00 AM LIPID PANEL Reviewed 08/31/2013 12:00 AM X-RAY EXAM OF LOWER LEG Returned 09/04/2013 12:00 AM IMMUNOTHERAPY INJECTIONS Reviewed 09/14/2013 12:00 AM THER/PROPH/DIAG INJ SC/IM Reviewed 09/14/2013 12:00 AM Decadron, Per [address] [facility]# [address]-69 Reviewed 09/14/2013 12:00 AM Depo-Medrol, Per [address] [facility]#8138-4499-59 Reviewed 09/20/2013 12:00 AM IMMUNOTHERAPY INJECTIONS Reviewed [...] INJ OCCIPITAL Reviewed 12/10/2009 12:00 AM Kenalog Zx-[address]-20 ANNA Reviewed 12/16/2009 12:00 AM HIV-1ANTIBODY Reviewed 12/16/2009 12:00 AM COMPLETE CBC W/AUTO DIFF WBC Reviewed 12/16/2009 12:00 AM METABOLIC PANEL TOTAL CA Reviewed 12/16/2009 12:00 AM Type and screen Reviewed 12/16/2009 12:00 AM PROTHROMBIN TIME Reviewed 12/16/2009 12:00 AM THROMBOPLASTIN TIME PARTIAL Reviewed 03/18/2010 12:00 AM DRAIN/INJ JOINT/BURSA W/O US Reviewed 03/18/2010 12:00 AM Kenalog Xr-[address]-20 ANNA Reviewed 11/21/2013 12:00 AM RADEX HAND MINIMUM 3 VIEWS Returned 06/03/2010 12:00 AM INJ TRIGGER POINT 05/31 MUSCL Reviewed 06/03/2010 12:00 AM Kenalog per 10Mg Im-[facility]#[address]-24(Niall) Reviewed 12/05/2013 12:00 AM COMPLETE CBC W/AUTO [...] Reviewed 07/23/2010 12:00 AM Kenalog per 10Mg Im-[facility]#[address]-30(Niall) Reviewed 2014 12:00 AM COMPLETE CBC W/AUTO [...] INJ OCCIPITAL Reviewed 10/01/2010 12:00 AM Kenalog Eb-[address]-20 ANNA Reviewed 07/25/2014 12:00 AM THER/PROPH/DIAG INJ [...] Quant,IgM <0.80 RMSF , IgG, EIA Negative [facility] Spotted Fever,IgM 0.51 E. [...] 141 Influenza 04/24/2014 sanofi pasteur PMC Fluzone [id number] Intramuscular Left Upper Arm 02/27/2014 01/15/2014 141 Influenza 02/13/2015 sanofi pasteur PMC Fluzone [id number] Intramuscular Left Deltoid 02/13/2015 01/03/2015 140 Tdap 06/06/2015 [employer] SKB BOOSTRIX [id number] Intramuscular Left Deltoid 06/06/2015 07/23/2014 115 Influenza 03/18/2016 sanofi pasteur PMC Fluzone [id number] Intramuscular Left Deltoid 03/17/2016 01/03/2015 141 History [...] enzymes Jul 01 2014 3:51PM Sternal pain b 2014 4:22PM [...] for breast cancer Apr 02 2016 11:40AM Payers Insurance Name Company Name Plan Name Plan Number Policy Number Policy Group Number Start Date Medicare Part A Medicare RHC [id number] N/A [facility] - RHC - Community [facility] RHC Comm [id number] N/A Medicare Part A Medicare - Lab/Xray [id number] N/A Medicare Part B Medicare Of [place] [id number] Monday, February 28, 2000 [place] [employer] [place] [employer] [place] [id number] Tuesday, November 10, 2009 Medicare Part A Medicare Part A [id number] N/A [place] [employer] [place] [employer] - [place]HC [id number] May [facility] Comm Plan of [id number] Wednesday, May 30, 2012 History of Encounters Visit Date Visit Type Provider 04/02/2016 Office visit Lena El KNIFEMAN 04/02/2016 Office visit Heena Dumont MD 03/26/2016 Office visit Yesica Falcon KNIFEMAN 03/17/2016 Office visit Heena Dumont MD 03/05/2016 Office visit Kaylynn Mendez KNIFEMAN 02/16/2016 Office visit Heena Dumont MD 02/14/2016 Office visit Na Jones KNIFEMAN 01/16/2016 Office visit Heena Dumont MD 12/16/2015 Office visit Heena Dumont MD 11/24/2015 Office visit Kaylynn Mendez KNIFEMAN 11/18/2015 Office visit Heena Dumont MD 11/03/2015 Office visit Sundeep Russell KNIFEMAN 10/20/2015 Office visit Kaylynn Mendez KNIFEMAN 09/23/2015 Office visit Kaylynn Mendez KNIFEMAN 09/16/[address] Pepe Figueroa MD 09/02/2015 Office visit Kaylynn Mendez KNIFEMAN 09/01/2015 Office visit Kaylynn Mendez KNIFEMAN 07/30/2015 Office visit Heena Dumont MD 07/15/2015 Office visit Kaylynn Mendez KNIFEMAN 07/04/2015 Office visit Heena Dumont MD 06/06/2015 Office visit Heena Dumont MD 06/06/2015 Office visit Kaylynn Mendez KNIFEMAN 06/02/2015 Office visit Kaylynn Mendez KNIFEMAN 05/26/2015 Office visit Kaylynn Mendez KNIFEMAN 05/20/2015 Office visit Kaylynn Mendez KNIFEMAN 05/08/2015 Office visit Heena Dumont MD 05/06/2015 Office visit Kaylynn Mendez KNIFEMAN 04/29/2015 Office visit Kaylynn Mendez KNIFEMAN 03/27/2015 Voided Brittni Yanez KNIFEMAN 03/21/2015 Office visit Heena Dumont MD 03/12/2015 Office visit Kaylynn Mendez KNIFEMAN 02/26/2015 Office visit Brittni Yanez KNIFEMAN 02/13/2015 Office visit Heena Dumont MD 01/15/2015 Office visit Brittni Yanez KNIFEMAN 01/13/2015 Office visit Heena Dumont MD 01/08/[address] Carol Fowler MD 01/01/2015 Office visit Brittni Yanez KNIFEMAN 12/13/2014 Office visit Heena Dumont MD 11/27/2014 Office visit Kaylynn Mendez KNIFEMAN 11/14/2014 Office visit Heena Dumont MD 10/18/2014 Office visit Heena Dumont MD 10/17/2014 [facility] John Hoskins MD 10/09/2014 Office visit Heena Dumont MD 09/25/2014 Office visit Heena Dumont MD 09/17/2014 Office visit Kaylynn Mendez KNIFEMAN 09/04/2014 Office visit Heena Dumont MD 08/28/2014 Office visit Kaylynn Mendez KNIFEMAN 08/23/2014 [facility] John Hoskins MD 08/01/2014 Office visit Kaylynn Mendez KNIFEMAN 07/29/2014 Office visit Heena Dumont MD 07/25/2014 Nurse visit Heena Dumont MD 07/17/2014 Office visit Kaylynn Mendez KNIFEMAN 07/11/2014 Office visit Heena Dumont MD 07/01/2014 Office visit Heena Dumont MD 06/25/2014 Office visit Kaylynn Mendez KNIFEMAN 06/12/2014 Office visit Kaylynn Mendez KNIFEMAN 06/06/2014 Office visit Kaylynn Mendez KNIFEMAN 05/27/2014 Office visit Heena Dumont MD 04/20/2014 Office visit Yesica Falcon KNIFEMAN 03/29/2014 Office visit Na Jones KNIFEMAN 03/15/2014 Office visit Heena Dumont MD 2014 Office visit Heena Dumont MD 2014 [facility] John Hoskins MD 02/27/2014 Nurse visit Heena Dumont MD 02/13/2014 Office visit Lena El KNIFEMAN 02/07/2014 Office visit Heena Dumont MD 02/03/2014 Office visit Na Jones KNIFEMAN 01/30/2014 Office visit Kaylynn Mendez KNIFEMAN 01/24/2014 Office visit Sundeep Russell KNIFEMAN 01/16/2014 Office visit Kaylynn Walker KNIFEMAN 01/10/2014 Nurse visit Kaylynn Walker KNIFEMAN 01/08/2014 Office visit Kaylynn Walker KNIFEMAN 12/05/2013 Office visit Kaylynn Walker KNIFEMAN 11/21/2013 Office visit Kaylynn Walker KNIFEMAN 10/23/2013 Office visit Brittni Yanez KNIFEMAN 10/17/2013 Nurse visit Heena Dumont MD 10/12/2013 Office visit Kaylynn Walker KNIFEMAN 10/02/2013 Office visit Heena Dumont MD 09/20/2013 Nurse visit Kaylynn Walker KNIFEMAN 09/20/2013 Voided Heena Dumont MD 09/14/2013 Office visit Kaylynn Walker KNIFEMAN 09/05/2013 Office visit Sundeep Russell KNIFEMAN 09/04/2013 Nurse visit Kaylynn Walker KNIFEMAN 08/31/2013 Office visit Kaylynn Walker KNIFEMAN 08/23/2013 Office visit Heena Dumont MD 08/10/2013 Office visit Kaylynn Walker KNIFEMAN 07/25/2013 Office visit Kaylynn Walker KNIFEMAN 07/18/2013 Office visit Kaylynn Walker KNIFEMAN 07/12/2013 Office visit Kaylynn Walker KNIFEMAN 06/28/2013 Nurse visit Kaylynn Walker KNIFEMAN 06/14/2013 Nurse visit Kaylynn Walker KNIFEMAN 06/08/2013 Nurse visit Kaylynn Walker KNIFEMAN 05/31/2013 Nurse visit Chadd Norris DO 05/18/2013 Office visit Terese Davidson MD 05/16/2013 Office visit Kaylynn Mendez KNIFEMAN 05/09/2013 Office visit Kaylynn Mendez KNIFEMAN 04/29/2013 [facility] Eliseo Hoskins MD 04/25/2013 Nurse visit Kaylynn Walker KNIFEMAN 04/17/2013 Office visit Kaylynn Walker KNIFEMAN 04/03/2013 Nurse visit Kaylynn Mendez KNIFEMAN 04/03/2013 Office visit Terese Davidson MD 03/28/2013 Office visit Sundeep Russell KNIFEMAN 03/21/2013 Office visit Kaylynn Mendez KNIFEMAN 03/20/2013 Office visit Terese Davidson MD 03/14/2013 Nurse visit Kaylynn Mendez KNIFEMAN 03/05/2013 Nurse visit Kaylynn Mendez KNIFEMAN 02/19/2013 Office visit Terese Davidson MD 02/16/2013 Nurse visit Kaylynn Mendez KNIFEMAN 02/09/2013 Office visit Sundeep Russell KNIFEMAN 02/08/2013 Nurse visit Kaylynn Walker KNIFEMAN 02/01/2013 Nurse visit Kaylynn Walker KNIFEMAN 01/26/2013 Nurse visit Sabrina Mendez [employer]IL [employer]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 01/25/2013 Office visit Kaylynn Mendez KNIFEMAN 01/22/2013 Office visit Yoan Castaneda MD 01/18/2013 Nurse visit Kaylynn Walker KNIFEMAN 01/11/2013 Nurse visit Kaylynn Walker KNIFEMAN 01/05/2013 Nurse visit Kaylynn Walker KNIFEMAN 12/29/2012 Office visit Kaylynn Walker KNIFEMAN 11/27/2012 Office visit Kaylynn Andrea KNIFEMAN 11/08/2012 Office visit Odell Tierney MD 11/08/2012 Voided Odell Tierney MD 11/07/2012 Office visit Kaylynn Mendez KNIFEMAN 10/31/2012 [facility] John Hoskins MD 10/31/2012 Office visit Kaylynn Walker KNIFEMAN 10/19/2012 Office visit Genoveva Ayala KNIFEMAN 10/10/2012 Office visit Kaylynn Walker KNIFEMAN 10/03/2012 Office visit Kaylynn Walker KNIFEMAN 09/26/2012 Office visit Kaylynn Andrea KNIFEMAN 09/06/2012 Office visit Kaylynn Mendez KNIFEMAN 09/06/2012 Office visit Odell Tierney MD 08/31/2012 Voided Kaylynn Mendez KNIFEMAN 07/28/2012 Office visit Kaylynn Mendez KNIFEMAN 07/27/2012 Office visit David Joyner DO 07/20/2012 [facility]2012 [facility] DO 07/11/2012 Office visit Kaylynn Mendez KNIFEMAN 06/27/2012 [facility] Odell Tierney MD 06/21/2012 Office visit David Joyner DO 06/21/2012 Office visit Odell Tierney MD 06/20/2012 Office visit Brittni Yanez KNIFEMAN 06/06/2012 Office visit Odell Tierney MD 05/03/2012 Office visit Kaylynn Mendez KNIFEMAN 04/28/2012 Office visit Brittni Yanez KNIFEMAN 04/11/2012 Office visit Kaylynn Mendez KNIFEMAN 04/06/2012 [facility] John Hoskins MD 03/30/2012 Office visit Kaylynn Mendez KNIFEMAN 03/15/2012 Office visit Kaylynn Mendez KNIFEMAN 03/15/2012 Office visit Odell Tierney MD 02/09/2012 Office visit Kaylynn Mendez KNIFEMAN 12/23/2011 Office visit Kaylynn Mendez KNIFEMAN 11/02/2011 Office visit Kaylynn Mendez KNIFEMAN 10/14/2011 Office visit Kaylynn Mendez KNIFEMAN 09/27/2011 Office visit Kaylynn Mendez KNIFEMAN 08/19/2011 [facility] John Hoskins MD 08/18/2011 [facility] Eliseo Hoskins MD 08/18/2011 Office visit Kaylynn Mendez KNIFEMAN 08/02/2011 Office visit Kaylynn Mendez KNIFEMAN 07/08/2011 Office visit Kaylynn Andrea KNIFEMAN 07/05/2011 Office visit Odell Tierney MD 06/15/2011 Office visit Kaylynn Andrea KNIFEMAN 05/14/2011 Office visit Kaylynn Andrea KNIFEMAN 05/11/2011 Office visit Odell Tierney MD 04/28/2011 Office visit Kaylynn Andrea KNIFEMAN 03/02/2011 Office visit Chadd Norris DO 02/17/2011 [...]
--- OUTSIDE RECORDS SUMMARY | 2018-05-10 06:00 | XMS REPORT ---
Author Kaylynn Lyles Organization [facility] Address [address] [place], [place] [id number] Care Team Providers Care Inpatient Services Rn Name Role Phone Kaylynn Mendez PCP Unavailable [...] 08/27/2014 use as directed for 99 days Broadbent 5-325 mg oral tablet 06/17/2014 06/27/2014 take [...] a day as needed for 30 days ldzgqutg-bfarokbus-SB 3.5-10,000-1 mg/mL-unit/mL-% otic drops,suspension 201401/08/2015 instill 4 [...] Reviewed 04/28/2011 12:00 AM Decadron 1 mg ND#[id number] (Jr) Reviewed 04/28/2011 12:00 AM Depo-Medrol 80 mg NDC#[id number]-Pprnxsiq Reviewed 09/02/2015 12:00 AM Toradol 60 Mg ND#7889-0351-69 Reviewed 09/02/2015 12:00 AM Phenergan, Up to 50 Mg [facility] Medicaid Reviewed 05/11/2011 12:00 AM N BLOCK INJ OCCIPITAL Reviewed 05/11/2011 12:00 AM Kenalog Oi-[address]-20 ANNA Reviewed 06/15/2011 12:00 AM COMPLETE CBC W/AUTO DIFF WBC Returned 06/15/2011 12:00 AM COMPREHEN METABOLIC PANEL Returned 07/08/2011 12:00 AM THER/PROPH/DIAG INJ SC/IM Reviewed 07/08/2011 12:00 AM Toradol,15mg ND#[id number], Brunildaer Reviewed 07/08/2011 12:00 AM Phenergan 50 Mg Im [facility] [id number] [place] Reviewed 08/02/2011 12:00 AM THER/PROPH/DIAG INJ SC/IM Reviewed 08/02/2011 12:00 AM Decadron 1 mg ND#[id number] (Jr) Reviewed 08/02/2011 12:00 AM Depo-Medrol 80 mg ND#[id number]-Yvilplso Reviewed 09/27/2011 12:00 AM THER/PROPH/DIAG INJ SC/IM Reviewed 09/27/2011 12:00 AM Depo-Medrol 80 mg NDC#[id number]-Ntjntlge Reviewed 10/14/2011 12:00 AM X-RAY EXAM OF ABDOMEN Returned 10/14/2011 12:00 AM URINALYSIS AUTO W/O SCOPE Reviewed 12/23/2011 12:00 AM THER/PROPH/DIAG INJ SC/IM Reviewed 12/23/2011 12:00 AM Decadron 1 mg NDC#[id number] (Jr) Reviewed 12/23/2011 12:00 AM Depo-Medrol 80 mg NDC#[id number]-Pvxlzwrz Reviewed 02/09/2012 12:00 AM THER/PROPH/DIAG INJ SC/IM Reviewed 02/09/2012 12:00 AM Decadron 1 mg ND#[id number] (Jr) Reviewed 02/09/2012 12:00 AM Depo-Medrol 80 mg NDC#[id number]-Axvokuci Reviewed 03/15/2012 12:00 AM N BLOCK INJ OCCIPITAL Reviewed 03/15/2012 12:[address]-[address]-20 ANNA Reviewed 04/11/2012 12:00 AM COMPLETE CBC W/AUTO DIFF WBC Returned 04/11/2012 12:00 AM COMPREHEN METABOLIC PANEL Returned 04/11/2012 12:00 AM LIPID PANEL Returned 04/11/2012 12:00 AM ASSAY THYROID STIM HORMONE Returned 06/20/2012 12:00 AM THER/PROPH/DIAG INJ SC/IM Reviewed 06/20/2012 12:00 AM Decadron, Per 1 Mg ND# [address]-02 Reviewed 06/20/2012 12:00 AM Depo-Medrol, Per 80 Mg ND#2505-3232-31 Reviewed 09/06/2012 12:00 AM N BLOCK INJ OCCIPITAL Reviewed 09/06/2012 12:00 AM Kenalog Ga-[address]-20 ANNA Reviewed 09/06/2012 12:00 AM X-RAY EXAM RIBS UNI 2 VIEWS Returned 09/26/2012 12:00 AM THER/PROPH/DIAG INJ SC/IM Reviewed 09/26/2012 12:00 AM Decadron, Per 1 Mg ND# [address]-30 Reviewed 09/26/2012 12:00 AM Depo-Medrol, Per 80 Mg ND#0699-2085-76 Reviewed 10/03/2012 12:00 AM URINALYSIS AUTO W/O SCOPE Reviewed 10/03/2012 12:00 AM THER/PROPH/DIAG INJ SC/IM Reviewed 10/03/2012 12:00 AM Toradol 60 Mg ND#0910-2713-77 Reviewed 10/03/2012 12:00 AM Phenergan, 25Mg ND#8870-2008-06 Reviewed 10/19/2012 12:00 AM N BLOCK INJ OCCIPITAL Reviewed 10/19/2012 12:00 AM Kenalog, Per 10 Mg ND#4294-9453-26 Reviewed 10/19/2012 12:00 AM Toradol 30 Mg [facility]#3356-8676-17 Reviewed 10/19/2012 12:00 AM THER/PROPH/DIAG INJ SC/IM Reviewed 10/31/2012 12:00 AM COMPLETE CBC W/AUTO DIFF WBC Returned 10/31/2012 12:00 AM COMPREHEN METABOLIC PANEL Returned 10/31/2012 12:00 AM LIPID PANEL Returned 11/03/2012 12:[address] THORAX W/O & W/DYE Returned 11/08/2012 12:00 AM N BLOCK INJ OCCIPITAL Reviewed 11/08/2012 12:00 AM Kenalog Vf-[address]-20 ANNA Reviewed 11/27/2012 12:00 AM COMPLETE CBC [...] Decadron, Per 1 Mg [facility]# [address]-65 Reviewed 01/25/2013 12:00 AM Depo-Medrol, Per 80 Mg [facility]#7489-5933-31 Reviewed 01/26/2013 12:00 AM IMMUNOTHERAPY INJECTIONS Returned [...] Decadron, Per 1 Mg [facility]# [address]-88 Reviewed 05/16/2013 12:00 AM Depo-Medrol, Per 80 Mg [facility]#4974-8433-04 Reviewed 05/31/2013 12:00 AM IMMUNOTHERAPY INJECTIONS Reviewed 06/08/2013 12:00 AM IMMUNOTHERAPY INJECTIONS Reviewed 06/14/2013 12:00 AM IMMUNOTHERAPY INJECTIONS Reviewed 06/28/2013 12:00 AM IMMUNOTHERAPY INJECTIONS Reviewed 07/12/2013 12:00 AM X-RAY EXAM RIBS UNI 2 VIEWS Returned 07/18/2013 12:00 AM Toradol 60 Mg [facility]#9151-5419-76 Reviewed 07/18/2013 12:00 AM THER/PROPH/DIAG INJ SC/IM Reviewed 08/23/2013 12:00 AM COMPLETE CBC W/AUTO DIFF WBC Reviewed 08/23/2013 12:00 AM COMPREHEN METABOLIC PANEL Reviewed 08/23/2013 12:00 AM LIPID PANEL Reviewed 08/31/2013 12:00 AM X-RAY EXAM OF LOWER LEG Returned 09/04/2013 12:00 AM IMMUNOTHERAPY INJECTIONS Reviewed 09/14/2013 12:00 AM THER/PROPH/DIAG INJ SC/IM Reviewed 09/14/2013 12:00 AM Decadron, Per 1 Mg [facility]# [address]-20 Reviewed 09/14/2013 12:00 AM Depo-Medrol, Per 80 Mg [facility]#0763-6229-08 Reviewed 09/20/2013 12:00 AM IMMUNOTHERAPY INJECTIONS Reviewed [...] INJ OCCIPITAL Reviewed 12/10/2009 12:00 AM Kenalog Um-[address]-20 ANNA Reviewed 12/16/2009 12:00 AM HIV-1ANTIBODY Reviewed 12/16/2009 12:00 AM COMPLETE CBC W/AUTO DIFF WBC Reviewed 12/16/2009 12:00 AM METABOLIC PANEL TOTAL CA Reviewed 12/16/2009 12:00 AM Type and screen Reviewed 12/16/2009 12:00 AM PROTHROMBIN TIME Reviewed 12/16/2009 12:00 AM THROMBOPLASTIN TIME PARTIAL Reviewed 03/18/2010 12:00 AM DRAIN/INJ JOINT/BURSA W/O US Reviewed 03/18/2010 12:00 AM Kenalog Eq-[address]-20 ANNA Reviewed 11/21/2013 12:00 AM RADEX HAND MINIMUM 3 VIEWS Returned 06/03/2010 12:00 AM INJ TRIGGER POINT 1/2 MUSCL Reviewed 06/03/2010 12:00 AM Kenalog per 10Mg -[facility]#[address]-53(Niall) Reviewed 12/05/2013 12:00 AM COMPLETE CBC W/AUTO [...] Reviewed 07/23/2010 12:00 AM Kenalog per 10Mg Im-[facility]#[address]-57(Niall) Reviewed 2014 12:00 AM COMPLETE CBC W/AUTO [...] INJ OCCIPITAL Reviewed 10/01/2010 12:00 AM Kenalog Nm-[address]-20 ANNA Reviewed 07/25/2014 12:00 AM THER/PROPH/DIAG INJ [...] 4.14 HGB 13.10 g/dLHCT 39.90 %MCV 96.0 [facility] 31.60 pgHC 32.80 g/dLRDW CV 13.70 %MPV [...] 0.60 mg/dLCALCIUM 10.90 mg/ dLeGFR >60 mL/min/1.73 i3ABONYE 45.0 U/L 08/31/2013 10:54 AM GLUCOSE 255.0 [...] 0.40 mg/ dLCALCIUM 10.60 mg/dLeGFR >60 mL/min/1.73 [id number] 369.0 mg/ dLCHOLESTEROL 153.0 mg/dLHDL 26.0 mg/dLLDL [...] BILI 0.30 mg/dLCALCIUM 10.0 mg/dLeGFR >60 mL/min/1.73 [id number] YELLOW APPEARANCE CLEAR SPEC GRAV 1.010 pH 5.5 PROTEIN NEGATIVE GLUCOSE NEGATIVE KETONE NEGATIVE BILIRUBIN NEGATIVE BLOOD NEGATIVE NITRITE NEGATIVE [place] SCREEN NEGATIVE HGB A1C 6.30 %Est Avg Glucose 134.1 mg/dLMICROALBUMIN UR <0.5 MG/DL 02/13/2015 4:38 PM RMSF, IgG, EIA Negative [facility] Spotted [...] 141 Influenza 04/24/2014 sanofi pasteur PMC Fluzone [id number] Intramuscular Left Upper Arm 02/27/2014 01/15/2014 141 Influenza 02/13/2015 sanofi pasteur PMC Fluzone [id number] Intramuscular Left Deltoid 02/13/2015 01/03/2015 140 Tdap 06/06/2015 [employer] SKB BOOSTRIX [id number] Intramuscular Left Deltoid 06/06/2015 [...] Date Medicare Part A Medicare Part A [facility] [id number] N/A [facility] Comm [id number] N/A Medicare Part B Medicare [facility] [id number] Monday, 2000 [place] [employer] [facility] [place] [facility] [id number] Tuesday, 2009 Medicare Part A Medicare Part A [id number] N/A [place] [employer] - [facility] [place] [employer] - [facility] [id number] May [facility] Comm Plan of [id number] Wednesday, 2012 History of Encounters Visit Date Visit Type Provider 09/02/2015 Office visit Kaylynn Mendez BATH STEWARD 09/01/2015 Office visit Kaylynn Mendez BATH STEWARD 07/30/2015 Office visit Heena Dumont MD 07/15/2015 Office visit Kaylynn Mendez BATH STEWARD 07/04/2015 Office visit Heena Dumont MD 06/06/2015 Office visit Heena Dumont MD 06/06/2015 Office visit Kaylynn Mendez BATH STEWARD 06/02/2015 Office visit Kaylynn Walker BATH STEWARD 05/26/2015 Office visit Kaylynn Walker BATH STEWARD 05/20/2015 Office visit Kaylynn Mendez BATH STEWARD 05/08/2015 Office visit Heena Dumont MD 05/06/2015 Office visit Kaylynn Mendez BATH STEWARD 04/29/2015 Office visit Kaylynn Mendez BATH STEWARD 03/27/2015 Voided Brittni Yanez BATH STEWARD 03/21/2015 Office visit Heena Dumont MD 03/12/2015 Office visit Kaylynn Mendez BATH STEWARD 02/26/2015 Office visit Brittni Yanez BATH STEWARD 02/13/2015 Office visit Heena Dumont MD 01/15/2015 Office visit Brittni Yanez BATH STEWARD 01/13/2015 Office visit Heena Dumont MD 01/08/[address] Carol Fowler MD 01/01/2015 Office visit Brittni Yanez BATH STEWARD 12/13/2014 Office visit Heena Dumont MD 11/27/2014 Office visit Kaylynn Mendez BATH STEWARD 11/14/2014 Office visit Heena Dumont MD 10/18/2014 Office visit Heena Dumont MD 10/17/2014 Hospital John Hoskins MD 10/09/2014 Office visit Heena Dumont MD 09/25/2014 Office visit Heena Dumont MD 09/17/2014 Office visit Kaylynn Mendez BATH STEWARD 09/04/2014 Office visit Heena Dumont MD 08/28/2014 Office visit Kaylynn Mendez BATH STEWARD 08/23/2014 Hospital John Hoskins MD 08/01/2014 Office visit Kaylynn Mendez BATH STEWARD 07/29/2014 Office visit Heena Dumont MD 07/25/2014 Nurse visit Heena Dumont MD 07/17/2014 Office visit Kaylynn Mendez BATH STEWARD 07/11/2014 Office visit Heena Dumont MD 07/01/2014 Office visit Heena Dumont MD 06/25/2014 Office visit Kaylynn Mendez BATH STEWARD 06/12/2014 Office visit Kaylynn Mendez BATH STEWARD 06/06/2014 Office visit Kaylynn Mendez BATH STEWARD 05/27/2014 Office visit Heena Dumont MD 04/20/2014 Office visit Yesica Falcon BATH STEWARD 03/29/2014 Office visit Na Jones BATH STEWARD 03/15/2014 Office visit Heena Dmuont MD 2014 Office visit Heena Dumont MD 2014 [facility] John Hoskins MD 02/27/2014 Nurse visit Heena Dumont MD 02/13/2014 Office visit Lena El BATH STEWARD 02/07/2014 Office visit Heena Dumont MD 02/03/2014 Office visit Na Jones BATH STEWARD 01/30/2014 Office visit Kaylynn Mendez BATH STEWARD 01/24/2014 Office visit Sundeep Russell BATH STEWARD 01/16/2014 Office visit Kaylynn Walker BATH STEWARD 01/10/2014 Nurse visit Kaylynn Walker BATH STEWARD 01/08/2014 Office visit Kaylynn Walker BATH STEWARD 12/05/2013 Office visit Kaylynn Walker BATH STEWARD 11/21/2013 Office visit Kaylynn Walker BATH STEWARD 10/23/2013 Office visit Brittni Yanez BATH STEWARD 10/17/2013 Nurse visit Heena Dumont MD 10/12/2013 Office visit Kaylynn Mendez BATH STEWARD 10/02/2013 Office visit Heena Dumont MD 09/20/2013 Nurse visit Kaylynn Mendez BATH STEWARD 09/20/2013 Voided Heena Dumont MD 09/14/2013 Office visit Kaylynn Walker BATH STEWARD 09/05/2013 Office visit Sundeep Russell BATH STEWARD 09/04/2013 Nurse visit Kaylynn Walker BATH STEWARD 08/31/2013 Office visit Kaylynn Walker BATH STEWARD 08/23/2013 Office visit Heena Dumont MD 08/10/2013 Office visit Kaylynn Walker BATH STEWARD 07/25/2013 Office visit Kaylynn Walker BATH STEWARD 07/18/2013 Office visit Kaylynn Walker BATH STEWARD 07/12/2013 Office visit Kaylynn Walker BATH STEWARD 06/28/2013 Nurse visit Kaylynn Walker BATH STEWARD 06/14/2013 Nurse visit Kaylynn Walker BATH STEWARD 06/08/2013 Nurse visit Kaylynn Walker BATH STEWARD 05/31/2013 Nurse visit Chadd Norris DO 05/18/2013 Office visit Terese Davidson MD 05/16/2013 Office visit Kaylynn Walker BATH STEWARD 05/09/2013 Office visit Kaylynn Walker BATH STEWARD 04/29/2013 [facility] John Hoskins MD 04/25/2013 Nurse visit Kaylynn Walker BATH STEWARD 04/17/2013 Office visit Kaylynn Walker BATH STEWARD 04/03/2013 Nurse visit Kaylynn Andrea BATH STEWARD 04/03/2013 Office visit Terese Davidson MD 03/28/2013 Office visit Sundeep Russell BATH STEWARD 03/21/2013 Office visit Kaylynn Mendez BATH STEWARD 03/20/2013 Office visit Terese Davidson MD 03/14/2013 Nurse visit Kaylynn Mendez BATH STEWARD 03/05/2013 Nurse visit Kaylynn Andrea BATH STEWARD 02/19/2013 Office visit Terese Davidson MD 02/16/2013 Nurse visit Kaylynn Mendez BATH STEWARD 02/09/2013 Office visit Sundeep Russell BATH STEWARD 02/08/2013 Nurse visit Kaylynn Andrea BATH STEWARD 02/01/2013 Nurse visit Kaylynn Andrea BATH STEWARD 01/26/2013 Nurse visit Sabrina Andrea BOARD CERTIFIED BEHAVIORAL ANALYST 01/25/2013 Office visit Kaylynn Mendez BATH STEWARD 01/22/2013 Office visit Yoan Castaneda MD 01/18/2013 Nurse visit Kaylynn Mendez BATH STEWARD 01/11/2013 Nurse visit Kaylynn Andrea BATH STEWARD 01/05/2013 Nurse visit Kaylynn Andrea BATH STEWARD 12/29/2012 Office visit Kaylynn Mendez BATH STEWARD 11/27/2012 Office visit Kaylynn Mendez BATH STEWARD 11/08/2012 Office visit Odell Tierney MD 11/08/2012 Voided Odell Tierney MD 11/07/2012 Office visit Kaylynn Mendez BATH STEWARD 10/31/2012 [facility] John Hoskins MD 10/31/2012 Office visit Kaylynn Mendez BATH STEWARD 10/19/2012 Office visit Genoveva Ayala BATH STEWARD 10/10/2012 Office visit Kaylynn Mendez BATH STEWARD 10/03/2012 Office visit Kaylynn Mendez BATH STEWARD 09/26/2012 Office visit Kaylynn Mendez BATH STEWARD 09/06/2012 Office visit Kaylynn Mendez BATH STEWARD 09/06/2012 Office visit Odell Tierney MD 08/31/2012 Voided Kaylynn Mendez BATH STEWARD 07/28/2012 Office visit Kaylynn Mendez BATH STEWARD 07/27/2012 Office visit David Joyner DO 07/20/2012 Hospital David Joyner DO 07/13/2012 Hospital David Joyner DO 07/11/2012 Office visit Kaylynn Mendez BATH STEWARD 06/27/2012 [facility] Odell Tierney MD 06/21/2012 Office visit David Joyner DO 06/21/2012 Office visit Odell Tierney MD 06/20/2012 Office visit Brittni Yanez BATH STEWARD 06/06/2012 Office visit Odell Tierney MD 05/03/2012 Office visit Kaylynn Mendez BATH STEWARD 04/28/2012 Office visit Brittnikitty Yanez BATH STEWARD 04/11/2012 Office visit Kaylynn Mendez BATH STEWARD 04/06/2012 Hospital John Hoskins MD 03/30/2012 Office visit Kaylynn Mendez BATH STEWARD 03/15/2012 Office visit Kaylynn Walker BATH STEWARD 03/15/2012 Office visit Odell Tierney MD 02/09/2012 Office visit Kaylynn Walker BATH STEWARD 12/23/2011 Office visit Kaylynn Walker BATH STEWARD 11/02/2011 Office visit Kaylynn Walker BATH STEWARD 10/14/2011 Office visit Kaylynn Walker BATH STEWARD 09/27/2011 Office visit Kaylynn Walker BATH STEWARD 08/19/2011 Hospital John Hoskins MD 08/18/2011 Hospital John Hoskins MD 08/18/2011 Office visit Kaylynn Mendez BATH STEWARD 08/02/2011 Office visit Kaylynn Mendez BATH STEWARD 07/08/2011 Office visit Kaylynn Walker BATH STEWARD 07/05/2011 Office visit Odell Tierney MD 06/15/2011 Office visit Kaylynn Mendez BATH STEWARD 05/14/2011 Office visit Kaylynn Andrea BATH STEWARD 05/11/2011 Office visit Odell Tierney MD 04/28/2011 Office visit Kaylynn Mendez BATH STEWARD 03/02/2011 Office visit Chadd Norris DO 02/17/2011 [...]
--- OUTSIDE RECORDS SUMMARY | 2018-05-10 06:07 | XMS REPORT ---
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 hwqektoj-nxtlnnwmr-YC 3.5-10,000-1 mg/mL-unit/mL-% otic drops,suspension 201607/23/2016 instill 4 [...] Reviewed 04/28/2011 12:00 AM Decadron 1 mg NDC#[id number] (Jr) Reviewed 04/28/2011 12:00 AM Depo-Medrol 80 mg NDC#[id number]-Rkcmdizz Reviewed 09/02/2015 12:00 AM Toradol 60 Mg NDC#0668-6403-53 Reviewed 09/02/2015 12:00 AM Phenergan, Up to 50 Mg RHC Medicaid Reviewed 09/16/2015 12:00 AM Toradol 60 Mg NDC#2562-5134-33 Reviewed 09/16/2015 12:00 AM Phenergan Up to 50 mg RHC Medicare Reviewed 05/11/2011 12:00 AM N BLOCK INJ OCCIPITAL Reviewed 05/11/2011 12:00 AM Kenalog Do-[address]-20 ANNA Reviewed 11/13/2015 12:00 AM ASSAY OF [...] AM Toradol,15mg [facility]#[id number], [place] Reviewed 07/08/2011 12:00 AM Phenergan 50 Mg Im [facility] 7180-0080-89 [facility] Reviewed 01/21/2016 12:00 AM ECG MONIT/REPRT UP TO 48 HRS Returned 08/02/2011 12:00 AM THER/PROPH/DIAG INJ SC/IM Reviewed 08/02/2011 12:00 AM Decadron 1 mg [facility]#[id number] (Jr) Reviewed 08/02/2011 12:00 AM Depo-Medrol 80 mg [facility]#25987693036-Gsodtcgz Reviewed 03/05/2016 12:00 AM COMPLETE CBC W/AUTO DIFF WBC Returned 03/05/2016 12:00 AM STREP A ASSAY W/OPTIC Returned 03/05/2016 12:00 AM C-REACTIVE PROTEIN Returned 03/18/2016 12:00 AM [facility] MEDICARE [...] Reviewed 09/27/2011 12:00 AM Depo-Medrol 80 mg NDC#[id number]-Estyjtpi Reviewed 07/06/2016 12:00 AM CHEST X-RAY 4/> VIEWS Returned 10/14/2011 12:00 AM X-RAY EXAM OF ABDOMEN Reviewed 10/14/2011 12:00 AM URINALYSIS AUTO W/O SCOPE Reviewed 12/23/2011 12:00 AM THER/PROPH/DIAG INJ SC/IM Reviewed 12/23/2011 12:00 AM Decadron 1 mg NDC#[id number] (Jr) Reviewed 12/23/2011 12:00 AM Depo-Medrol 80 mg ND#[id number]-Yaendhhk Reviewed 02/09/2012 12:00 AM THER/PROPH/DIAG INJ SC/IM Reviewed 02/09/2012 12:00 AM Decadron 1 mg ND#[id number] (Jr) Reviewed 02/09/2012 12:00 AM Depo-Medrol 80 mg NDC#40326013790-Oidnqcrg Reviewed 03/15/2012 12:00 AM N BLOCK INJ OCCIPITAL Reviewed 03/15/2012 12:00 AM Kenalog Md-[address]-20 ANNA Reviewed 04/11/2012 12:00 AM COMPLETE CBC W/AUTO DIFF WBC Reviewed 04/11/2012 12:00 AM COMPREHEN METABOLIC PANEL Reviewed 04/11/2012 12:00 AM LIPID PANEL Reviewed 04/11/2012 12:00 AM ASSAY THYROID STIM HORMONE Reviewed 06/20/2012 12:00 AM THER/PROPH/DIAG INJ SC/IM Reviewed 06/20/2012 12:00 AM Decadron, Per 1 Mg ND# [address]-17 Reviewed 06/20/2012 12:00 AM Depo-Medrol, Per 80 Mg ND#4453-5982-70 Reviewed 09/06/2012 12:00 AM N BLOCK INJ OCCIPITAL Reviewed 09/06/2012 12:00 AM Kenalog Vi-[address]-20 ANNA Reviewed 09/06/2012 12:00 AM X-RAY EXAM RIBS UNI 2 VIEWS Reviewed 09/26/2012 12:00 AM THER/PROPH/DIAG INJ SC/IM Reviewed 09/26/2012 12:00 AM Decadron, Per 1 Mg [facility]# [address]-74 Reviewed 09/26/2012 12:00 AM Depo-Medrol, Per 80 Mg [facility]#6924-1205-66 Reviewed 10/03/2012 12:00 AM URINALYSIS AUTO W/O SCOPE Reviewed 10/03/2012 12:00 AM THER/PROPH/DIAG INJ SC/IM Reviewed 10/03/2012 12:00 AM Toradol 60 Mg [facility]#9876-1404-74 Reviewed 10/03/2012 12:00 AM Phenergan, 25Mg [facility]#0391-2306-83 Reviewed 10/19/2012 12:00 AM N BLOCK INJ OCCIPITAL Reviewed 10/19/2012 12:00 AM Kenalog, Per 10 Mg [facility]#1366-7738-74 Reviewed 10/19/2012 12:00 AM Toradol 30 Mg [facility]#4550-6367-83 Reviewed 10/19/2012 12:00 AM THER/PROPH/DIAG INJ SC/IM Reviewed 10/31/2012 12:00 AM COMPLETE CBC W/AUTO DIFF WBC Reviewed 10/31/2012 12:00 AM COMPREHEN METABOLIC PANEL Reviewed 10/31/2012 12:00 AM LIPID PANEL Reviewed 11/03/2012 12:[address] THORAX W/O & W/DYE Reviewed 11/08/2012 12:00 AM N BLOCK INJ OCCIPITAL Reviewed 11/08/2012 12:00 AM Kenalog Ot-[address]-20 ANNA Reviewed 11/27/2012 12:00 AM COMPLETE CBC [...] Mg [facility]# [address]-76 Reviewed 01/25/2013 12:00 AM Depo-Medrol, Per 80 Mg [facility]#6595-8318-49 Reviewed 01/26/2013 12:00 AM IMMUNOTHERAPY INJECTIONS Reviewed [...] Mg [facility]# [address]-69 Reviewed 05/16/2013 12:00 AM Depo-Medrol, Per 80 Mg [facility]#0246-7406-82 Reviewed 05/31/2013 12:00 AM IMMUNOTHERAPY INJECTIONS Reviewed 06/08/2013 12:00 AM IMMUNOTHERAPY INJECTIONS Reviewed 06/14/2013 12:00 AM IMMUNOTHERAPY INJECTIONS Reviewed 06/28/2013 12:00 AM IMMUNOTHERAPY INJECTIONS Reviewed 07/12/2013 12:00 AM X-RAY EXAM RIBS UNI 2 VIEWS Reviewed 07/18/2013 12:00 AM Toradol 60 Mg [facility]#4854-0101-05 Reviewed 07/18/2013 12:00 AM THER/PROPH/DIAG INJ SC/IM [...] Mg [facility]# [address]-94 Reviewed 09/14/2013 12:00 AM Depo-Medrol, Per 80 Mg [facility]#9235-4414-00 Reviewed 09/20/2013 12:00 AM IMMUNOTHERAPY INJECTIONS Reviewed [...] INJ OCCIPITAL Reviewed 12/10/2009 12:00 AM Kenalog Ub-[address]-20 ANNA Reviewed 12/16/2009 12:00 AM HIV-1ANTIBODY Reviewed 12/16/2009 12:00 AM COMPLETE CBC W/AUTO DIFF WBC Reviewed 12/16/2009 12:00 AM METABOLIC PANEL TOTAL CA Reviewed 12/16/2009 12:00 AM Type and screen Reviewed 12/16/2009 12:00 AM PROTHROMBIN TIME Reviewed 12/16/2009 12:00 AM THROMBOPLASTIN TIME PARTIAL Reviewed 03/18/2010 12:00 AM DRAIN/INJ JOINT/BURSA W/O US Reviewed 03/18/2010 12:00 AM Kenalog Hp-[address]-20 ANNA Reviewed 11/21/2013 12:00 AM RADEX HAND MINIMUM 3 VIEWS Reviewed 06/03/2010 12:00 AM INJ TRIGGER POINT 1/2 MUSCL Reviewed 06/03/2010 12:00 AM Kenalog per 10Mg Im-[facility]#[address]-07(Niall) Reviewed 12/05/2013 12:00 AM COMPLETE CBC W/AUTO [...] 12:00 AM Kenalog per 10Mg Im-[facility]#[address]-61(Niall) Reviewed 2014 12:00 AM COMPLETE CBC W/AUTO [...] INJ OCCIPITAL Reviewed 10/01/2010 12:00 AM Kenalog Qb-[address]-20 ANNA Reviewed 07/25/2014 12:00 AM THER/PROPH/DIAG INJ [...] 141 Influenza 04/24/2014 sanofi pasteur PMC Fluzone [id number] Intramuscular Left Upper Arm 02/27/2014 01/15/2014 141 Influenza 02/13/2015 sanofi pasteur PMC Fluzone [id number] Intramuscular Left Deltoid 02/13/2015 01/03/2015 140 Tdap 06/06/2015 [employer] SKB BOOSTRIX [id number] Intramuscular Left Deltoid 06/06/2015 07/23/2014 115 Influenza 03/18/2016 sanofi pasteur PMC Fluzone [id number] Intramuscular Left Deltoid 03/17/2016 01/03/2015 141 History [...] Number Start Date Medicare RHC Medicare RHC [id number] N/A [facility] RHC Comm [id number] N/A Medicare Part A Medicare - Lab/Xray [id number] N/A Medicare Part B Medicare Of [place] [id number] Monday, February 28, 2000 [place] [facility] [place] Prog [id number] Tuesday, November 10, 2009 Medicare Part A Medicare Part A [id number] N/A [place] [employer] Prog - RHC [place] [employer] Prog - RHC [id number] May [facility] Comm Plan of [id number] Wednesday, May 30, 2012 History of Encounters [...] Dumont MD 04/13/2016 Office visit Kaylynn Mendez PLUG MAKER 04/02/2016 Office visit Lena El PLUG MAKER 04/02/2016 Office visit Heena Dumont MD 03/26/2016 Office visit Yesica Falcon PLUG MAKER 03/17/2016 Office visit Heena Dumont MD 03/05/2016 Office visit Kaylynn Mendez PLUG MAKER 02/16/2016 Office visit Heena Dumont MD 02/14/2016 Office visit Na Jones PLUG MAKER 01/16/2016 Office visit Heena Dumont MD 12/16/2015 Office visit Heena Dumont MD 11/24/2015 Office visit Kaylynn Mendez PLUG MAKER 11/18/2015 Office visit Heena Dumont MD 11/03/2015 Office visit Sundeep Russell PLUG MAKER 10/20/2015 Office visit Kaylynn Mendez PLUG MAKER 09/23/2015 Office visit Kaylynn Mendez PLUG MAKER 09/16/[address] Pepe Figueroa MD 09/02/2015 Office visit Kaylynn Mendez PLUG MAKER 09/01/2015 Office visit Kaylynn Mendez PLUG MAKER 07/30/2015 Office visit Heena Dumont MD 07/15/2015 Office visit Kaylynn Mendez PLUG MAKER 07/04/2015 Office visit Heena Dumont MD 06/06/2015 Office visit Heena Dumont MD 06/06/2015 Office visit Kaylynn Mendez PLUG MAKER 06/02/2015 Office visit Kaylynn Mendez PLUG MAKER 05/26/2015 Office visit Kaylynn Mendez PLUG MAKER 05/20/2015 Office visit Kaylynn Mendez PLUG MAKER 05/08/2015 Office visit Heena Dumont MD 05/06/2015 Office visit Kaylynn Mendez PLUG MAKER 04/29/2015 Office visit Kaylynn Mendez PLUG MAKER 03/27/2015 Voided Brittni Yanez PLUG MAKER 03/21/2015 Office visit Heena Dumont MD 03/12/2015 Office visit Kaylynn Mendze PLUG MAKER 02/26/2015 Office visit Brittni Yanez PLUG MAKER 02/13/2015 Office visit Heena Dumont MD 01/15/2015 Office visit Brittni Yanez PLUG MAKER 01/13/2015 Office visit Heena Dumont MD 01/08/[address] Carol Fowler MD 01/01/2015 Office visit Brittni Yanez PLUG MAKER 12/13/2014 Office visit Heena Dumont MD 11/27/2014 Office visit Kaylynn Mendez PLUG MAKER 11/14/2014 Office visit Heena Dumont MD 10/18/2014 Office visit Heena Dumont MD 10/17/2014 [facility] Eliseo oHskins MD 10/09/2014 Office visit Heena Dumont MD 09/25/2014 Office visit Heena Dumont MD 09/17/2014 Office visit Kaylynn Mendez PLUG MAKER 09/04/2014 Office visit Heena Dumont MD 08/28/2014 Office visit Kaylynn Mendez PLUG MAKER 08/23/2014 [facility] Eliseo Hoskins MD 08/01/2014 Office visit Kaylynn Mendez PLUG MAKER 07/29/2014 Office visit Heena Dumont MD 07/25/2014 Nurse visit Heena Dumont MD 07/17/2014 Office visit Kaylynn Mendez PLUG MAKER 07/11/2014 Office visit Heena Dumont MD 07/01/2014 Office visit Heena Dumont MD 06/25/2014 Office visit Kaylynn Mendez PLUG MAKER 06/12/2014 Office visit Kaylynn Mendez PLUG MAKER 06/06/2014 Office visit Kaylynn Mendez PLUG MAKER 05/27/2014 Office visit Heena Dumont MD 04/20/2014 Office visit Yesica Falcon PLUG MAKER 03/29/2014 Office visit Na Jones PLUG MAKER 03/15/2014 Office visit Heena Dumont MD 2014 Office visit Heena Dumont MD 2014 [facility] John Hoskins MD 02/27/2014 Nurse visit Heena Dumont MD 02/13/2014 Office visit Lena El PLUG MAKER 02/07/2014 Office visit Heena Dumont MD 02/03/2014 Office visit Na Jones PLUG MAKER 01/30/2014 Office visit Kaylynn Mendez PLUG MAKER 01/24/2014 Office visit Sundeep Russell PLUG MAKER 01/16/2014 Office visit Kaylynn Mendez PLUG MAKER 01/10/2014 Nurse visit Kaylynn Mendez PLUG MAKER 01/08/2014 Office visit Kaylynn Mendez PLUG MAKER 12/05/2013 Office visit Kaylynn Mendez PLUG MAKER 11/21/2013 Office visit Kaylynn Mendez PLUG MAKER 10/23/2013 Office visit Brittni Yanez PLUG MAKER 10/17/2013 Nurse visit Heena Dumont MD 10/12/2013 Office visit Kaylynn Mendez PLUG MAKER 10/02/2013 Office visit Heena Dumont MD 09/20/2013 Nurse visit Kaylynn Mendez PLUG MAKER 09/20/2013 Voided Heena Dumont MD 09/14/2013 Office visit Kaylynn Mendez PLUG MAKER 09/05/2013 Office visit Sundeep Russell PLUG MAKER 09/04/2013 Nurse visit Kaylynn Walker PLUG MAKER 08/31/2013 Office visit Kaylynn Walker PLUG MAKER 08/23/2013 Office visit Heena Dumont MD 08/10/2013 Office visit Kaylynn Walker PLUG MAKER 07/25/2013 Office visit Kaylynn Walker PLUG MAKER 07/18/2013 Office visit Kaylynn Walker PLUG MAKER 07/12/2013 Office visit Kaylynn Walker PLUG MAKER 06/28/2013 Nurse visit Kaylynn Walker PLUG MAKER 06/14/2013 Nurse visit Kaylynn Walker PLUG MAKER 06/08/2013 Nurse visit Kaylynn Walker PLUG MAKER 05/31/2013 Nurse visit Chadd Norris DO 05/18/2013 Office visit Terese Davidson MD 05/16/2013 Office visit Kaylynn Walker PLUG MAKER 05/09/2013 Office visit Kaylynn Mendez PLUG MAKER 04/29/2013 [facility] John Hoskins MD 04/25/2013 Nurse visit Kaylynn Walker PLUG MAKER 04/17/2013 Office visit Kaylynn Walker PLUG MAKER 04/03/2013 Nurse visit Kaylynn Walker PLUG MAKER 04/03/2013 Office visit Terese Davidson MD 03/28/2013 Office visit Sundeep Russell PLUG MAKER 03/21/2013 Office visit Kaylynn Mendez PLUG MAKER 03/20/2013 Office visit Terese Davidson MD 03/14/2013 Nurse visit Kaylynn Walker PLUG MAKER 03/05/2013 Nurse visit Kaylynn Mendez PLUG MAKER 02/19/2013 Office visit Terese Davidson MD 02/16/2013 Nurse visit Kaylynn Walker PLUG MAKER 02/09/2013 Office visit Sundeep Russell PLUG MAKER 02/08/2013 Nurse visit Kaylynn Walker PLUG MAKER 02/01/2013 Nurse visit Kaylynn Walker PLUG MAKER 01/26/2013 Nurse visit Sabrina Mendez PROP WORKER 01/25/2013 Office visit Kaylynn Walker PLUG MAKER 01/22/2013 Office visit Yoan Castaneda MD 01/18/2013 Nurse visit Kaylynn Walker PLUG MAKER 01/11/2013 Nurse visit Kaylynn Walker PLUG MAKER 01/05/2013 Nurse visit Kaylynn Walker PLUG MAKER 12/29/2012 Office visit Kaylynn Walker PLUG MAKER 11/27/2012 Office visit Kaylynn Mendez PLUG MAKER 11/08/2012 Office visit Odell Tierney MD 11/08/2012 Voided Odell Tierney MD 11/07/2012 Office visit Kaylynn Mendez PLUG MAKER 10/31/2012 [facility] John Hoskins MD 10/31/2012 Office visit Kaylynn Mendez PLUG MAKER 10/19/2012 Office visit Genoveva Ayala PLUG MAKER 10/10/2012 Office visit Kaylynn Mendez PLUG MAKER 10/03/2012 Office visit Kaylynn Mendez PLUG MAKER 09/26/2012 Office visit Kaylynn Mendez PLUG MAKER 09/06/2012 Office visit Kaylynn Mendez PLUG MAKER 09/06/2012 Office visit Odell Tierney MD 08/31/2012 Voided Kaylynn Mendez PLUG MAKER 07/28/2012 Office visit Kaylynn Mendez PLUG MAKER 07/27/2012 Office visit David Ar DO 07/20/2012 [facility] David Ar DO 07/13/2012 [facility] David Ar DO 07/11/2012 Office visit Kaylynn Mendez PLUG MAKER 06/27/2012 [facility] Odell Tierney MD 06/21/2012 Office visit David Joyner DO 06/21/2012 Office visit Odell Tierney MD 06/20/2012 Office visit Brittni Yanez PLUG MAKER 06/06/2012 Office visit Odell Tierney MD 05/03/2012 Office visit Kaylynn Mendez PLUG MAKER 04/28/2012 Office visit Brittni Yanez PLUG MAKER 04/11/2012 Office visit Kaylynn Mendez PLUG MAKER 04/06/2012 [facility] John Hoskins MD 03/30/2012 Office visit Kaylynn Mendez PLUG MAKER 03/15/2012 Office visit Kaylynn Mendez PLUG MAKER 03/15/2012 Office visit Odell Tierney MD 02/09/2012 Office visit Kaylynn Mendez PLUG MAKER 12/23/2011 Office visit Kaylynn Mendez PLUG MAKER 11/02/2011 Office visit Kaylynn Mendez PLUG MAKER 10/14/2011 Office visit Kaylynn Mendez PLUG MAKER 09/27/2011 Office visit Kaylynn Mendez PLUG MAKER 08/19/2011 [facility] John Hoskins MD 08/18/2011 [facility] John Hoskins MD 08/18/2011 Office visit Kaylynn Mendez PLUG MAKER 08/02/2011 Office visit Kaylynn Mendez PLUG MAKER 07/08/2011 Office visit Kaylynn Mendez PLUG MAKER 07/05/2011 Office visit Odell Tierney MD 06/15/2011 Office visit Kaylynn Mendez PLUG MAKER 05/14/2011 Office visit Kaylynn Mendez PLUG MAKER 05/11/2011 Office visit Odell Tierney MD 04/28/2011 Office visit Kaylynn Mendez PLUG MAKER 03/02/2011 Office visit Chadd Norris DO 02/17/2011 [...]
--- OUTSIDE RECORDS SUMMARY | 2018-05-10 06:14 | XMS REPORT ---
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 lfuwjcwd-nvwgtwjpc-OT 3.5-10,000-1 mg/mL-unit/mL-% otic drops,suspension 201607/23/2016 instill 4 [...] Reviewed 04/28/2011 12:00 AM Decadron 1 mg NDC#[id number] (Jr) Reviewed 04/28/2011 12:00 AM Depo-Medrol 80 mg NDC#[id number]-Yopmgacw Reviewed 09/02/2015 12:00 AM Toradol 60 Mg NDC#8832-3565-92 Reviewed 09/02/2015 12:00 AM Phenergan, Up to 50 Mg RHC Medicaid Reviewed 09/16/2015 12:00 AM Toradol 60 Mg NDC#9254-4344-98 Reviewed 09/16/2015 12:00 AM Phenergan Up to 50 mg RHC Medicare Reviewed 05/11/2011 12:00 AM N BLOCK INJ OCCIPITAL Reviewed 05/11/2011 12:00 AM Kenalog Ls-[address]-20 ANNA Reviewed 11/13/2015 12:00 AM ASSAY OF [...] SC/IM Reviewed 07/08/2011 12:00 AM Toradol,15mg [facility]#[id number], [place] Reviewed 07/08/2011 12:00 AM Phenergan 50 Mg Im [facility] 4564-7246-39 FP [place] Reviewed 01/21/2016 12:00 AM ECG MONIT/REPRT UP TO 48 HRS Returned 08/02/2011 12:00 AM THER/PROPH/DIAG INJ SC/IM Reviewed 08/02/2011 12:00 AM Decadron 1 mg [facility]#[id number] (Jr) Reviewed 08/02/2011 12:00 AM Depo-Medrol 80 mg [facility]#[id number]-Edfqzzcg Reviewed 03/05/2016 12:00 AM COMPLETE CBC W/AUTO DIFF WBC Reviewed 03/05/2016 12:00 AM STREP A ASSAY W/OPTIC Reviewed 03/05/2016 12:00 AM C-REACTIVE PROTEIN Reviewed 03/18/2016 12:00 AM [facility] Reviewed 09/27/2011 12:00 AM Depo-Medrol 80 mg ND#[id number]-Tffpjaex Reviewed 09/27/2011 12:00 AM Depo-Medrol 40 mg NDC#[id number] Reviewed 07/06/2016 12:00 AM CHEST X-RAY 4/> [...] Reviewed 12/23/2011 12:00 AM Decadron 1 mg [facility]#[id number] (Jr) Reviewed 12/23/2011 12:00 AM Depo-Medrol 80 mg [facility]#44080670149-Rjpwthsp Reviewed 11/02/2016 11:45 AM URINALYSIS AUTO W/O [...] Reviewed 02/09/2012 12:00 AM Decadron 1 mg ND#[id number] (Jr) Reviewed 02/09/2012 12:00 AM Depo-Medrol 80 mg ND#[id number]-Rtiqplsw Reviewed 02/21/2017 12:00 AM CULTURE OTHR SPECIMN AEROBIC Returned 02/21/2017 12:00 AM INFLUENZA ASSAY W/OPTIC Returned 02/23/2017 12:00 AM COMPLETE CBC W/AUTO DIFF WBC Reviewed 02/23/2017 12:00 AM X-RAY EXAM OF KNEE 3 Returned 03/15/2012 12:00 AM N BLOCK INJ OCCIPITAL Reviewed 03/15/2012 12:00 AM Kenalog Sm-[address]-20 ANNA Reviewed 04/11/2012 12:00 AM COMPLETE CBC [...] 12:00 AM Decadron, Per 1 Mg ND# [address]-38 Reviewed 06/20/2012 12:00 AM Depo-Medrol, Per 80 Mg ND#8326-6911-96 Reviewed 09/06/2012 12:00 AM N BLOCK INJ OCCIPITAL Reviewed 09/06/2012 12:00 AM Kenalog Iz-[address]-20 ANNA Reviewed 09/06/2012 12:00 AM X-RAY EXAM RIBS UNI 2 VIEWS Reviewed 09/26/2012 12:00 AM THER/PROPH/DIAG INJ SC/IM Reviewed 09/26/2012 12:00 AM Decadron, Per 1 Mg [facility]# [address]-43 Reviewed 09/26/2012 12:00 AM Depo-Medrol, Per 80 Mg [facility]#1444-4800-60 Reviewed 10/03/2012 12:00 AM URINALYSIS AUTO W/O SCOPE Reviewed 10/03/2012 12:00 AM THER/PROPH/DIAG INJ SC/IM Reviewed 10/03/2012 12:00 AM Toradol 60 Mg [facility]#5237-3228-43 Reviewed 10/03/2012 12:00 AM Phenergan, 25Mg [facility]#3173-0661-42 Reviewed 10/19/2012 12:00 AM N BLOCK INJ OCCIPITAL Reviewed 10/19/2012 12:00 AM Kenalog, Per 10 Mg [facility]#6186-9351-57 Reviewed 10/19/2012 12:00 AM Toradol 30 Mg [facility]#7045-3540-04 Reviewed 10/19/2012 12:00 AM THER/PROPH/DIAG INJ SC/IM Reviewed 10/31/2012 12:00 AM COMPLETE CBC W/AUTO DIFF WBC Reviewed 10/31/2012 12:00 AM COMPREHEN METABOLIC PANEL Reviewed 10/31/2012 12:00 AM LIPID PANEL Reviewed 10/31/2012 12:00 AM ELECTROCARDIOGRAM COMPLETE Reviewed 11/03/2012 12:[address] THORAX W/O & W/DYE Reviewed 11/08/2012 12:00 AM N BLOCK INJ OCCIPITAL Reviewed 11/08/2012 12:00 AM Kenalog Qy-[address]-20 ANNA Reviewed 11/27/2012 12:00 AM COMPLETE CBC [...] 12:00 AM Decadron, Per 1 Mg [facility]# [address]-25 Reviewed 01/25/2013 12:00 AM Depo-Medrol, Per 80 Mg [facility]#3502-7020-79 Reviewed 01/26/2013 12:00 AM IMMUNOTHERAPY ONE INJECTION [...] 12:00 AM Decadron, Per 1 Mg [facility]# [address]-97 Reviewed 05/16/2013 12:00 AM Depo-Medrol, Per 80 Mg [facility]#3948-5340-33 Reviewed 05/31/2013 12:00 AM IMMUNOTHERAPY INJECTIONS Reviewed 06/08/2013 12:00 AM IMMUNOTHERAPY INJECTIONS Reviewed 06/14/2013 12:00 AM IMMUNOTHERAPY INJECTIONS Reviewed 06/28/2013 12:00 AM IMMUNOTHERAPY INJECTIONS Reviewed 07/12/2013 12:00 AM X-RAY EXAM RIBS UNI 2 VIEWS Reviewed 07/18/2013 12:00 AM Toradol 60 Mg [facility]#4468-9741-91 Reviewed 07/18/2013 12:00 AM THER/PROPH/DIAG INJ SC/IM Reviewed 08/23/2013 12:00 AM COMPLETE CBC W/AUTO DIFF WBC Reviewed 08/23/2013 12:00 AM COMPREHEN METABOLIC PANEL Reviewed 08/23/2013 12:00 AM LIPID PANEL Reviewed 08/31/2013 12:00 AM X-RAY EXAM OF LOWER LEG Reviewed 09/04/2013 12:00 AM IMMUNOTHERAPY INJECTIONS Reviewed 09/14/2013 12:00 AM THER/PROPH/DIAG INJ SC/IM Reviewed 09/14/2013 12:00 AM Decadron, Per 1 Mg [facility]# [address]-95 Reviewed 09/14/2013 12:00 AM Depo-Medrol, Per 80 Mg [facility]#4759-5032-44 Reviewed 09/20/2013 12:00 AM IMMUNOTHERAPY INJECTIONS Reviewed [...] INJ OCCIPITAL Reviewed 12/10/2009 12:00 AM Quentin Cl-[address]-20 ANNA Reviewed 12/16/2009 12:00 AM HIV-1ANTIBODY Reviewed 12/16/2009 12:00 AM COMPLETE CBC W/AUTO DIFF WBC Reviewed 12/16/2009 12:00 AM METABOLIC PANEL TOTAL CA Reviewed 12/16/2009 12:00 AM Type and screen Reviewed 12/16/2009 12:00 AM PROTHROMBIN TIME Reviewed 12/16/2009 12:00 AM THROMBOPLASTIN TIME PARTIAL Reviewed 03/18/2010 12:00 AM DRAIN/INJ JOINT/BURSA W/O US Reviewed 03/18/2010 12:00 AM Quentin Dp-[address]-20 ANNA Reviewed 11/21/2013 12:00 AM RADEX HAND MINIMUM 3 VIEWS Reviewed 06/03/2010 12:00 AM INJ TRIGGER POINT 1/2 MUSCL Reviewed 06/03/2010 12:00 AM Kenalog per 10Mg Im-[facility]#[address]-26(Niall) Reviewed 12/05/2013 12:00 AM COMPLETE CBC W/AUTO [...] 12:00 AM Kenalog per 10Mg Im-[facility]#[address]-65(Niall) Reviewed 2014 12:00 AM COMPLETE CBC W/AUTO [...] INJ OCCIPITAL Reviewed 10/01/2010 12:00 AM Kenalog Ex-[address]-20 ANNA Reviewed 07/25/2014 12:00 AM THER/PROPH/DIAG INJ [...] Quant,IgM <0.80 RMSF , IgG, EIA Negative [facility] Spotted Fever,IgM 0.51 E. chaffeensis [...] 141 Influenza 04/24/2014 sanofi pasteur PMC Fluzone [id number] Intramuscular Left Upper Arm 02/27/2014 01/15/2014 141 Influenza 02/13/2015 sanofi pasteur PMC Fluzone [id number] Intramuscular Left Deltoid 02/13/2015 01/03/2015 140 Tdap 06/06/2015 [employer] SKB BOOSTRIX [id number] Intramuscular Left Deltoid 06/06/2015 07/23/2014 115 Influenza 03/18/2016 sanofi pasteur PMC Fluzone [id number] Intramuscular Left Deltoid 03/17/2016 01/03/2015 141 History [...] Number Start Date Medicare RHC Medicare RHC [id number] N/A [facility] - [facility] - Community Plan of [facility] RHC Comm [id number] N/A Medicare Part A Medicare - Lab/Xray [id number] N/A Medicare Part B Medicare Of [place] [id number] Monday, February 28, 2000 [place] [facility] [place] [facility] [place] [id number] Tuesday, November 10, 2009 Medicare Part A Medicare Part A [id number] N/A [place] Personal [place] [employer]ide Pro[place] - RHC [place] Pro[place] - RHC [id number] May [facility] Comm Plan of [id number] Wednesday, May 30, 2012 History of Encounters Visit Date Visit Type Provider 06/02/2017 Office visit Heena Dumont MD 04/20/2017 Office visit 04/20/2017 Office visit 04/20/2017 Office visit 04/20/2017 Office visit Heena Dumont MD 03/22/2017 Office visit Heena Dumont MD 03/05/2017 Office visit Lena Chaves PRIVATE WEALTH ADVISOR 02/23/2017 Office visit Symone Marie PRIVATE WEALTH ADVISOR 02/21/2017 Office visit Heena Dumont MD 02/15/2017 Office visit Heena Dumont MD 02/02/2017 Office visit Heena Dumont MD 01/07/2017 Office visit Riccardo Cardoza MD 01/03/2017 Office visit Heena Dumont MD 12/15/2016 Office visit Kaylynn Mendez PRIVATE WEALTH ADVISOR 12/02/2016 Office visit Heena Dumont MD 11/23/2016 [facility] John Hoskins MD 11/23/2016 Office visit Kaylynn Mendez PRIVATE WEALTH ADVISOR 11/17/2016 Office visit Kaylynn Mendez PRIVATE WEALTH ADVISOR 11/05/2016 Office visit Riccardo Cardoza MD 11/02/2016 Office visit Heena Dumont MD 10/06/2016 Office visit Kaylynn Mendez PRIVATE WEALTH ADVISOR 09/22/2016 Office visit Heena Dumont MD 09/09/2016 Office visit Kaylynn Mendez PRIVATE WEALTH ADVISOR 08/27/2016 Office visit Riccardo Cardoza MD 08/26/2016 Office visit Heena Dumont MD 07/09/2016 Office visit Riccardo Cardoza MD 07/06/2016 Office visit Heena Dumont MD 06/18/2016 Office visit Kaylynn Mendez PRIVATE WEALTH ADVISOR 06/07/2016 Office visit Sundeep Russell PRIVATE WEALTH ADVISOR 06/04/2016 Office visit Heena Dumont MD 05/13/2016 Office visit Heena Dumont MD 05/03/2016 Office visit Heena Dumont MD 04/26/2016 Office visit Kaylynn Mendez PRIVATE WEALTH ADVISOR 04/14/2016 Office visit Heena Dumont MD 04/13/2016 Office visit Kaylynn Mendez PRIVATE WEALTH ADVISOR 04/02/2016 Office visit Lena El PRIVATE WEALTH ADVISOR 04/02/2016 Office visit Heena Dumont MD 03/26/2016 Office visit Yesica Falcon PRIVATE WEALTH ADVISOR 03/17/2016 Office visit Heena Dumont MD 03/05/2016 Office visit Kaylynn Mendez PRIVATE WEALTH ADVISOR 02/16/2016 Office visit Heena Dumont MD 02/14/2016 Office visit Na Jones PRIVATE WEALTH ADVISOR 01/16/2016 Office visit Heena Dumont MD 12/16/2015 Office visit Heena Dumont MD 11/24/2015 Office visit Kaylynn Mendez PRIVATE WEALTH ADVISOR 11/18/2015 Office visit Heena Dumnot MD 11/03/2015 Office visit Sundeep Russell PRIVATE WEALTH ADVISOR 10/20/2015 Office visit Kaylynn Mendez PRIVATE WEALTH ADVISOR 09/23/2015 Office visit Kaylynn Mendez PRIVATE WEALTH ADVISOR 09/16/[address] Pepe Figueroa MD 09/02/2015 Office visit Kaylynn Mendez PRIVATE WEALTH ADVISOR 09/01/2015 Office visit Kaylynn Mendez PRIVATE WEALTH ADVISOR 07/30/2015 Office visit Heena Dumont MD 07/15/2015 Office visit Kaylynn Mendez PRIVATE WEALTH ADVISOR 07/04/2015 Office visit Heena Dumont MD 06/06/2015 Office visit Heena Dumont MD 06/06/2015 Office visit Kaylynn Mendez PRIVATE WEALTH ADVISOR 06/02/2015 Office visit Kaylynn Walker PRIVATE WEALTH ADVISOR 05/26/2015 Office visit Kaylynn Walker PRIVATE WEALTH ADVISOR 05/20/2015 Office visit Kaylynn Walker PRIVATE WEALTH ADVISOR 05/08/2015 Office visit Heena Dumont MD 05/06/2015 Office visit Kaylynn Mendez PRIVATE WEALTH ADVISOR 04/29/2015 Office visit Kaylynn Mendez PRIVATE WEALTH ADVISOR 03/27/2015 Voided Brittni Yanez PRIVATE WEALTH ADVISOR 03/21/2015 Office visit Heena Dumont MD 03/12/2015 Office visit Kaylynn Mendez PRIVATE WEALTH ADVISOR 02/26/2015 Office visit Brittni Yanez PRIVATE WEALTH ADVISOR 02/13/2015 Office visit Heena Dumont MD 01/15/2015 Office visit Brittni Yanez PRIVATE WEALTH ADVISOR 01/13/2015 Office visit Heena Dumont MD 01/08/[address] Carol Fowler MD 01/01/2015 Office visit Brittni Yanez PRIVATE WEALTH ADVISOR 12/13/2014 Office visit Heena Dumont MD 11/27/2014 Office visit Kaylynn Mendez PRIVATE WEALTH ADVISOR 11/14/2014 Office visit Heena Dumont MD 10/18/2014 Office visit Heena Dumont MD 10/17/2014 Hospital John Hoskins MD 10/09/2014 Office visit Heena Dumont MD 09/25/2014 Office visit Heena Dumont MD 09/17/2014 Office visit Kaylynn Mendez PRIVATE WEALTH ADVISOR 09/04/2014 Office visit Heena Dumont MD 08/28/2014 Office visit Kaylynn Mendez PRIVATE WEALTH ADVISOR 08/23/2014 [facility] John Hoskins MD 08/01/2014 Office visit Kaylynn Mendez PRIVATE WEALTH ADVISOR 07/29/2014 Office visit Heena Dumont MD 07/25/2014 Nurse visit Heena Dumont MD 07/17/2014 Office visit Kaylynn Mendez PRIVATE WEALTH ADVISOR 07/11/2014 Office visit Heena Dumont MD 07/01/2014 Office visit Heena Dumont MD 06/25/2014 Office visit Kaylynn Mendez PRIVATE WEALTH ADVISOR 06/12/2014 Office visit Kaylynn Mendez PRIVATE WEALTH ADVISOR 06/06/2014 Office visit Kaylynn Mendez PRIVATE WEALTH ADVISOR 05/27/2014 Office visit Heena Dumont MD 04/20/2014 Office visit Yesica Falcon PRIVATE WEALTH ADVISOR 03/29/2014 Office visit Na Jones PRIVATE WEALTH ADVISOR 03/15/2014 Office visit Heena Dumont MD 2014 Office visit Heena Dumont MD 2014 Hospital John Hoskins MD 02/27/2014 Nurse visit Heena Dumont MD 02/13/2014 Office visit Lena El PRIVATE WEALTH ADVISOR 02/07/2014 Office visit Heena Dumont MD 02/03/2014 Office visit Na Jones PRIVATE WEALTH ADVISOR 01/30/2014 Office visit Kaylynn Mendez PRIVATE WEALTH ADVISOR 01/24/2014 Office visit Sundeep Russell PRIVATE WEALTH ADVISOR 01/16/2014 Office visit Kaylynn Walker PRIVATE WEALTH ADVISOR 01/10/2014 Nurse visit Kaylynn Walker PRIVATE WEALTH ADVISOR 01/08/2014 Office visit Kaylynn Walker PRIVATE WEALTH ADVISOR 12/05/2013 Office visit Kaylynn Walker PRIVATE WEALTH ADVISOR 11/21/2013 Office visit Kaylynn Walker PRIVATE WEALTH ADVISOR 10/23/2013 Office visit Brittni Yanez PRIVATE WEALTH ADVISOR 10/17/2013 Nurse visit Heena Dumont MD 10/12/2013 Office visit Kaylynn Mendez PRIVATE WEALTH ADVISOR 10/02/2013 Office visit Heena Dumont MD 09/20/2013 Nurse visit Kaylynn Walker PRIVATE WEALTH ADVISOR 09/20/2013 Voided Heena Dumont MD 09/14/2013 Office visit Kaylynn Walker PRIVATE WEALTH ADVISOR 09/05/2013 Office visit Sundeep Russell PRIVATE WEALTH ADVISOR 09/04/2013 Nurse visit Kaylynn Walker PRIVATE WEALTH ADVISOR 08/31/2013 Office visit Kaylynn Walker PRIVATE WEALTH ADVISOR 08/23/2013 Office visit Heena Dumont MD 08/10/2013 Office visit Kaylynn Walker PRIVATE WEALTH ADVISOR 07/25/2013 Office visit Kaylynn Walker PRIVATE WEALTH ADVISOR 07/18/2013 Office visit Kaylynn Walker PRIVATE WEALTH ADVISOR 07/12/2013 Office visit Kaylynn Walker PRIVATE WEALTH ADVISOR 06/28/2013 Nurse visit Kaylynn Walker PRIVATE WEALTH ADVISOR 06/14/2013 Nurse visit Kaylynn Walker PRIVATE WEALTH ADVISOR 06/08/2013 Nurse visit Kaylynn Walker PRIVATE WEALTH ADVISOR 05/31/2013 Nurse visit Chadd Norris DO 05/18/2013 Office visit Terese Davidson MD 05/16/2013 Office visit Kaylynn Mendez PRIVATE WEALTH ADVISOR 05/09/2013 Office visit Kaylynn Mendez PRIVATE WEALTH ADVISOR 04/29/2013 [facility] Eliseo Hoskins MD 04/25/2013 Nurse visit Kaylynn Walker PRIVATE WEALTH ADVISOR 04/17/2013 Office visit Kaylynn Walker PRIVATE WEALTH ADVISOR 04/03/2013 Nurse visit Kaylynn Mendez PRIVATE WEALTH ADVISOR 04/03/2013 Office visit Terese Davidson MD 03/28/2013 Office visit Sundeep Russell PRIVATE WEALTH ADVISOR 03/21/2013 Office visit Kaylynn Mendez PRIVATE WEALTH ADVISOR 03/20/2013 Office visit Terese Davidson MD 03/14/2013 Nurse visit Kaylynn Mendez PRIVATE WEALTH ADVISOR 03/05/2013 Nurse visit Kaylynn Mendez PRIVATE WEALTH ADVISOR 02/19/2013 Office visit Terese Davidson MD 02/16/2013 Nurse visit Kaylynn Mendez PRIVATE WEALTH ADVISOR 02/09/2013 Office visit Sundeep Russell PRIVATE WEALTH ADVISOR 02/08/2013 Nurse visit Kaylynn Mendez PRIVATE WEALTH ADVISOR 02/01/2013 Nurse visit Kaylynn Walker PRIVATE WEALTH ADVISOR 01/26/2013 Nurse visit Sabrina Mendez OPERATIONS PROGRAM MANAGER 01/25/2013 Office visit Kaylynn Mendez PRIVATE WEALTH ADVISOR 01/22/2013 Office visit Yoan Castaneda MD 01/18/2013 Nurse visit Kaylynn Walker PRIVATE WEALTH ADVISOR 01/11/2013 Nurse visit Kaylynn Walker PRIVATE WEALTH ADVISOR 01/05/2013 Nurse visit Kaylynn Walker PRIVATE WEALTH ADVISOR 12/29/2012 Office visit Kaylynn Walker PRIVATE WEALTH ADVISOR 11/27/2012 Office visit Kaylynn Walker PRIVATE WEALTH ADVISOR 11/08/2012 Office visit Odell Tierney MD 11/08/2012 Voided Odell Tierney MD 11/07/2012 Office visit Kaylynn Walker PRIVATE WEALTH ADVISOR 10/31/2012 [facility] John Hoskins MD 10/31/2012 Office visit Kaylynn Walker PRIVATE WEALTH ADVISOR 10/19/2012 Office visit Genoveva Ayala PRIVATE WEALTH ADVISOR 10/10/2012 Office visit Kaylynn Walker PRIVATE WEALTH ADVISOR 10/03/2012 Office visit Kaylynn Walker PRIVATE WEALTH ADVISOR 09/26/2012 Office visit Kaylynn Walker PRIVATE WEALTH ADVISOR 09/06/2012 Office visit Kaylynn Walker PRIVATE WEALTH ADVISOR 09/06/2012 Office visit Odell Tierney MD 08/31/2012 Voided Kaylynn Mendez PRIVATE WEALTH ADVISOR 07/28/2012 Office visit Kaylynn Walker PRIVATE WEALTH ADVISOR 07/27/2012 Office visit David Joyner DO 07/20/2012 [facility] David Ar DO 07/13/2012 [facility] DO 07/11/2012 Office visit Kaylynn Mendez PRIVATE WEALTH ADVISOR 06/27/2012 [facility] Odell Tierney MD 06/21/2012 Office visit David Joyner DO 06/21/2012 Office visit Odell Tierney MD 06/20/2012 Office visit Brittni Yanez PRIVATE WEALTH ADVISOR 06/06/2012 Office visit Odell Tierney MD 05/03/2012 Office visit Kaylynn Mendez PRIVATE WEALTH ADVISOR 04/28/2012 Office visit Brittni Yanez PRIVATE WEALTH ADVISOR 04/11/2012 Office visit Kaylynn Mendez PRIVATE WEALTH ADVISOR 04/06/2012 [facility] John Hoskins MD 03/30/2012 Office visit Kaylynn Walker PRIVATE WEALTH ADVISOR 03/15/2012 Office visit Kaylynn Andrea PRIVATE WEALTH ADVISOR 03/15/2012 Office visit Odell Tierney MD 02/09/2012 Office visit Kaylynn Walker PRIVATE WEALTH ADVISOR 12/23/2011 Office visit Kaylynn Walker PRIVATE WEALTH ADVISOR 11/02/2011 Office visit Kaylynn Walker PRIVATE WEALTH ADVISOR 10/14/2011 Office visit Kaylynn Walker PRIVATE WEALTH ADVISOR 09/27/2011 Office visit Kaylynn Walker PRIVATE WEALTH ADVISOR 08/19/2011 Hospital John Hoskins MD 08/18/2011 [facility] John Hoskins MD 08/18/2011 Office visit Kaylynn Mendez PRIVATE WEALTH ADVISOR 08/02/2011 Office visit Kaylynn Mendez PRIVATE WEALTH ADVISOR 07/08/2011 Office visit Kaylynn Mendez PRIVATE WEALTH ADVISOR 07/05/2011 Office visit Odell Tierney MD 06/15/2011 Office visit Kaylynn Mendez PRIVATE WEALTH ADVISOR 05/14/2011 Office visit Kaylynn Mendez PRIVATE WEALTH ADVISOR 05/11/2011 Office visit Odell Tierney MD 04/28/2011 Office visit Kaylynn Mendez PRIVATE WEALTH ADVISOR 03/02/2011 Office visit Chadd Norris DO 02/17/2011 [...]
--- OUTSIDE RECORDS SUMMARY | 2018-05-10 06:21 | XMS REPORT ---
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 fsunohdv-rzteuvqfy-DA 3.5-10,000-1 mg/mL-unit/mL-% otic drops,suspension 201607/23/2016 instill 4 [...] Reviewed 04/28/2011 12:00 AM Decadron 1 mg ND#[id number] (Jr) Reviewed 04/28/2011 12:00 AM Depo-Medrol 80 mg ND#[id number]-Rprwolsb Reviewed 09/02/2015 12:00 AM Toradol 60 Mg ND#6925-1064-22 Reviewed 09/02/2015 12:00 AM Phenergan, Up to 50 Mg RHC Medicaid Reviewed 09/16/2015 12:00 AM Toradol 60 Mg ND#3575-3909-52 Reviewed 09/16/2015 12:00 AM Phenergan Up to 50 mg RHC Medicare Reviewed 05/11/2011 12:00 AM N BLOCK INJ OCCIPITAL Reviewed 05/11/2011 12:00 AM Kenalog Ag-[address]-20 ANNA Reviewed 11/13/2015 12:00 AM ASSAY OF [...] SC/IM Reviewed 07/08/2011 12:00 AM Toradol,15mg [facility]#[id number], [place] Reviewed 07/08/2011 12:00 AM Phenergan 50 Mg Im [facility] 4353-4900-04 [place] Reviewed 01/21/2016 12:00 AM ECG MONIT/REPRT UP TO 48 HRS Returned 08/02/2011 12:00 AM THER/PROPH/DIAG INJ SC/IM Reviewed 08/02/2011 12:00 AM Decadron 1 mg [facility]#[id number] (Jr) Reviewed 08/02/2011 12:00 AM Depo-Medrol 80 mg [facility]#[id number]-Tigvfvvs Reviewed 03/05/2016 12:00 AM COMPLETE CBC W/AUTO DIFF WBC Reviewed 03/05/2016 12:00 AM STREP A ASSAY W/OPTIC Reviewed 03/05/2016 12:00 AM C-REACTIVE PROTEIN Reviewed 03/18/2016 12:00 AM [facility] MEDICARE - flu vaccine administration Reviewed [...] Reviewed 09/27/2011 12:00 AM Depo-Medrol 80 mg [facility]#[id number]-Sxaxfyfo Reviewed 09/27/2011 12:00 AM Depo-Medrol 40 mg [facility]#[id number] Reviewed 07/06/2016 12:00 AM CHEST X-RAY 4/> [...] Reviewed 12/23/2011 12:00 AM Decadron 1 mg [facility]#[id number] (Jr) Reviewed 12/23/2011 12:00 AM Depo-Medrol 80 mg [facility]#[id number]-Qenpzcqh Reviewed 11/02/2016 11:45 AM URINALYSIS AUTO W/O [...] Reviewed 02/09/2012 12:00 AM Decadron 1 mg ND#[id number] (Jr) Reviewed 02/09/2012 12:00 AM Depo-Medrol 80 mg ND#[id number]-Euxkkqct Reviewed 02/21/2017 12:00 AM CULTURE OTHR SPECIMN AEROBIC Returned 02/21/2017 12:00 AM INFLUENZA ASSAY W/OPTIC Returned 02/23/2017 12:00 AM COMPLETE CBC W/AUTO DIFF WBC Reviewed 02/23/2017 12:00 AM X-RAY EXAM OF KNEE 3 Returned 03/15/2012 12:00 AM N BLOCK INJ OCCIPITAL Reviewed 03/15/2012 12:00 AM Kenalog En-[address]-20 ANNA Reviewed 04/11/2012 12:00 AM COMPLETE CBC W/AUTO DIFF WBC Reviewed 04/11/2012 12:00 AM COMPREHEN METABOLIC PANEL Reviewed 04/11/2012 12:00 AM LIPID PANEL Reviewed 04/11/2012 12:00 AM ASSAY THYROID STIM HORMONE Reviewed 04/11/2012 12:00 AM DESTRUCT PREMALG LES 2-14 Reviewed 06/20/2012 12:00 AM THER/PROPH/DIAG INJ SC/IM Reviewed 06/20/2012 12:00 AM Decadron, Per 1 Mg ND# [address]-15 Reviewed 06/20/2012 12:00 AM Depo-Medrol, Per 80 Mg ND#4973-8306-30 Reviewed 09/06/2012 12:00 AM N BLOCK INJ OCCIPITAL Reviewed 09/06/2012 12:00 AM Kenalog El-[address]-20 ANNA Reviewed 09/06/2012 12:00 AM X-RAY EXAM RIBS UNI 2 VIEWS Reviewed 09/26/2012 12:00 AM THER/PROPH/DIAG INJ SC/IM Reviewed 09/26/2012 12:00 AM Decadron, Per 1 Mg ND# [address]-57 Reviewed 09/26/2012 12:00 AM Depo-Medrol, Per 80 Mg ND#5964-4998-08 Reviewed 10/03/2012 12:00 AM URINALYSIS AUTO W/O SCOPE Reviewed 10/03/2012 12:00 AM THER/PROPH/DIAG INJ SC/IM Reviewed 10/03/2012 12:00 AM Toradol 60 Mg [facility]#9176-9137-88 Reviewed 10/03/2012 12:00 AM Phenergan, 25Mg [facility]#5975-0254-55 Reviewed 10/19/2012 12:00 AM N BLOCK INJ OCCIPITAL Reviewed 10/19/2012 12:00 AM Kenalog, Per 10 Mg ND#4873-9937-93 Reviewed 10/19/2012 12:00 AM Toradol 30 Mg [facility]#5867-4806-87 Reviewed 10/19/2012 12:00 AM THER/PROPH/DIAG INJ SC/IM Reviewed 10/31/2012 12:00 AM COMPLETE CBC W/AUTO DIFF WBC Reviewed 10/31/2012 12:00 AM COMPREHEN METABOLIC PANEL Reviewed 10/31/2012 12:00 AM LIPID PANEL Reviewed 10/31/2012 12:00 AM ELECTROCARDIOGRAM COMPLETE Reviewed 11/03/2012 12:[address] THORAX W/O & W/DYE Reviewed 11/08/2012 12:00 AM N BLOCK INJ OCCIPITAL Reviewed 11/08/2012 12:00 AM Kenalog Gr-[address]-20 ANNA Reviewed 11/27/2012 12:00 AM COMPLETE CBC [...] AM Decadron, Per 1 Mg [facility]# [address]-51 Reviewed 01/25/2013 12:00 AM Depo-Medrol, Per 80 Mg [facility]#2633-3035-15 Reviewed 01/26/2013 12:00 AM IMMUNOTHERAPY ONE INJECTION [...] AM Decadron, Per 1 Mg [facility]# [address]-43 Reviewed 05/16/2013 12:00 AM Depo-Medrol, Per 80 Mg [facility]#4725-1453-20 Reviewed 05/31/2013 12:00 AM IMMUNOTHERAPY INJECTIONS Reviewed 06/08/2013 12:00 AM IMMUNOTHERAPY INJECTIONS Reviewed 06/14/2013 12:00 AM IMMUNOTHERAPY INJECTIONS Reviewed 06/28/2013 12:00 AM IMMUNOTHERAPY INJECTIONS Reviewed 07/12/2013 12:00 AM X-RAY EXAM RIBS UNI 2 VIEWS Reviewed 07/18/2013 12:00 AM Toradol 60 Mg [facility]#8675-9099-96 Reviewed 07/18/2013 12:00 AM THER/PROPH/DIAG INJ SC/IM Reviewed 08/23/2013 12:00 AM COMPLETE CBC W/AUTO DIFF WBC Reviewed 08/23/2013 12:00 AM COMPREHEN METABOLIC PANEL Reviewed 08/23/2013 12:00 AM LIPID PANEL Reviewed 08/31/2013 12:00 AM X-RAY EXAM OF LOWER LEG Reviewed 09/04/2013 12:00 AM IMMUNOTHERAPY INJECTIONS Reviewed 09/14/2013 12:00 AM THER/PROPH/DIAG INJ SC/IM Reviewed 09/14/2013 12:00 AM Decadron, Per 1 Mg [facility]# [address]-41 Reviewed 09/14/2013 12:00 AM Depo-Medrol, Per 80 Mg [facility]#9535-7159-03 Reviewed 09/20/2013 12:00 AM IMMUNOTHERAPY INJECTIONS Reviewed [...] INJ OCCIPITAL Reviewed 12/10/2009 12:00 AM Kenalog Aw-[address]-20 ANNA Reviewed 12/16/2009 12:00 AM HIV-1ANTIBODY Reviewed 12/16/2009 12:00 AM COMPLETE CBC W/AUTO DIFF WBC Reviewed 12/16/2009 12:00 AM METABOLIC PANEL TOTAL CA Reviewed 12/16/2009 12:00 AM Type and screen Reviewed 12/16/2009 12:00 AM PROTHROMBIN TIME Reviewed 12/16/2009 12:00 AM THROMBOPLASTIN TIME PARTIAL Reviewed 03/18/2010 12:00 AM DRAIN/INJ JOINT/BURSA W/O US Reviewed 03/18/2010 12:00 AM Kenalog Mp-[address]-20 ANNA Reviewed 11/21/2013 12:00 AM RADEX HAND MINIMUM 3 VIEWS Reviewed 06/03/2010 12:00 AM INJ TRIGGER POINT 1/2 MUSCL Reviewed 06/03/2010 12:00 AM Kenalog per 10Mg Im-[facility]#[address]-61(Niall) Reviewed 12/05/2013 12:00 AM COMPLETE CBC W/AUTO [...] Kenalog per 10Mg Im-[facility]#[address]-99(Niall) Reviewed 2014 12:00 AM COMPLETE CBC W/AUTO [...] INJ OCCIPITAL Reviewed 10/01/2010 12:00 AM Kenalog Zm-[address]-20 ANNA Reviewed 07/25/2014 12:00 AM THER/PROPH/DIAG INJ [...] 141 Influenza 04/24/2014 sanofi pasteur PMC Fluzone [id number] Intramuscular Left Upper Arm 02/27/2014 01/15/2014 141 Influenza 02/13/2015 sanofi pasteur PMC Fluzone [id number] Intramuscular Left Deltoid 02/13/2015 01/03/2015 140 Tdap 06/06/2015 [employer] SKB BOOSTRIX [id number] Intramuscular Left Deltoid 06/06/2015 07/23/2014 115 Influenza 03/18/2016 sanofi pasteur PMC Fluzone [id number] Intramuscular Left Deltoid 03/17/2016 01/03/2015 141 History [...] Anxiety about health Feb 02 2017 10:46AM Payers Insurance Name Company Name Plan Name Plan Number Policy Number Policy Group Number Start Date Medicare RHC Medicare RHC [id number] N/A [employer] [facility] Comm [id number] N/A Medicare Part A Medicare - Lab/Xray [id number] N/A Medicare Part B Medicare Of [place] [id number] Monday, February 28, 2000 [place] [employer] [place] [id number] Tuesday, November 10, 2009 Medicare Part A Medicare Part A [id number] N/A [place] Risk Reduction Counselor Prog - RHC [place] [employer] Pro[place] - RH [id number] May [facility] Comm Plan of [id number] Wednesday, May 30, 2012 History of Encounters Visit Date Visit Type Provider 02/23/2017 Office visit Symone PolkBarbara Frank ASSOCIATE DIRECTOR OF DEVELOPMENT 02/21/2017 Office visit Heena Dumont MD 02/15/2017 Office visit Heena Dumont MD 02/02/2017 Office visit Heena Dumont MD 01/07/2017 Office visit Riccardo Cardoza MD 01/03/2017 Office visit Heena Dumont MD 12/15/2016 Office visit Kaylynn Mendez ASSOCIATE DIRECTOR OF DEVELOPMENT 12/02/2016 Office visit Heena Dumont MD 11/23/2016 [facility] Eliseo Hoskins MD 11/23/2016 Office visit Kaylynn Mendez ASSOCIATE DIRECTOR OF DEVELOPMENT 11/17/2016 Office visit Kaylynn Mendez ASSOCIATE DIRECTOR OF DEVELOPMENT 11/05/2016 Office visit Riccardo Cardoza MD 11/02/2016 Office visit Heena Dumont MD 10/06/2016 Office visit Kaylynn Mendez ASSOCIATE DIRECTOR OF DEVELOPMENT 09/22/2016 Office visit Heena Dumont MD 09/09/2016 Office visit Kaylynn Mendez ASSOCIATE DIRECTOR OF DEVELOPMENT 08/27/2016 Office visit Riccardo Cardoza MD 08/26/2016 Office visit Heena Dumont MD 07/09/2016 Office visit Riccardo Cardoza MD 07/06/2016 Office visit Heena Dumont MD 06/18/2016 Office visit Kaylynn Mendez ASSOCIATE DIRECTOR OF DEVELOPMENT 06/07/2016 Office visit Sundeep Russell ASSOCIATE DIRECTOR OF DEVELOPMENT 06/04/2016 Office visit Heena Dumont MD 05/13/2016 Office visit Heena Dumont MD 05/03/2016 Office visit Heena Dumont MD 04/26/2016 Office visit Kaylynn Mendez ASSOCIATE DIRECTOR OF DEVELOPMENT 04/14/2016 Office visit Heena Dumont MD 04/13/2016 Office visit Kaylynn Mendez ASSOCIATE DIRECTOR OF DEVELOPMENT 04/02/2016 Office visit Lena El ASSOCIATE DIRECTOR OF DEVELOPMENT 04/02/2016 Office visit Heena Dumont MD 03/26/2016 Office visit Yesica Falcon ASSOCIATE DIRECTOR OF DEVELOPMENT 03/17/2016 Office visit Heena Dumont MD 03/05/2016 Office visit Kaylynn Mendez ASSOCIATE DIRECTOR OF DEVELOPMENT 02/16/2016 Office visit Heena Dumont MD 02/14/2016 Office visit Na Jones ASSOCIATE DIRECTOR OF DEVELOPMENT 01/16/2016 Office visit Heena Dumont MD 12/16/2015 Office visit Heena Dumont MD 11/24/2015 Office visit Kaylynn Mendez ASSOCIATE DIRECTOR OF DEVELOPMENT 11/18/2015 Office visit Heena Dumont MD 11/03/2015 Office visit Sundeep Russell ASSOCIATE DIRECTOR OF DEVELOPMENT 10/20/2015 Office visit Kaylynn Walker ASSOCIATE DIRECTOR OF DEVELOPMENT 09/23/2015 Office visit Kaylynn Walker ASSOCIATE DIRECTOR OF DEVELOPMENT 09/16/[address] Pepe Figueroa MD 09/02/2015 Office visit Kaylynn Walker ASSOCIATE DIRECTOR OF DEVELOPMENT 09/01/2015 Office visit Kaylynn Walker ASSOCIATE DIRECTOR OF DEVELOPMENT 07/30/2015 Office visit Heena Dumont MD 07/15/2015 Office visit Kaylynn Walker ASSOCIATE DIRECTOR OF DEVELOPMENT 07/04/2015 Office visit Heena Dumont MD 06/06/2015 Office visit Heena Dumont MD 06/06/2015 Office visit Kaylynn Walker ASSOCIATE DIRECTOR OF DEVELOPMENT 06/02/2015 Office visit Kaylynn Walker ASSOCIATE DIRECTOR OF DEVELOPMENT 05/26/2015 Office visit Kaylynn Walker ASSOCIATE DIRECTOR OF DEVELOPMENT 05/20/2015 Office visit Kaylynn Andrea ASSOCIATE DIRECTOR OF DEVELOPMENT 05/08/2015 Office visit Heena Dumont MD 05/06/2015 Office visit Kaylynn Walker ASSOCIATE DIRECTOR OF DEVELOPMENT 04/29/2015 Office visit Kaylynn Walker ASSOCIATE DIRECTOR OF DEVELOPMENT 03/27/2015 Voided Brittni Yanez ASSOCIATE DIRECTOR OF DEVELOPMENT 03/21/2015 Office visit Heena Dumont MD 03/12/2015 Office visit Kaylynn Mendez ASSOCIATE DIRECTOR OF DEVELOPMENT 02/26/2015 Office visit Brittni Yanez ASSOCIATE DIRECTOR OF DEVELOPMENT 02/13/2015 Office visit Heena Dumont MD 01/15/2015 Office visit Brittni Yanez ASSOCIATE DIRECTOR OF DEVELOPMENT 01/13/2015 Office visit Heena Dumont MD 01/08/[address] Carol Fowler MD 01/01/2015 Office visit Brittni Yanez ASSOCIATE DIRECTOR OF DEVELOPMENT 12/13/2014 Office visit Heena Dumont MD 11/27/2014 Office visit Kaylynn Mendez ASSOCIATE DIRECTOR OF DEVELOPMENT 11/14/2014 Office visit Heena Dumont MD 10/18/2014 Office visit Heena Dumont MD 10/17/2014 [facility] John Hoskins MD 10/09/2014 Office visit Heena Dumont MD 09/25/2014 Office visit Heena Dumont MD 09/17/2014 Office visit Kaylynn Mendez ASSOCIATE DIRECTOR OF DEVELOPMENT 09/04/2014 Office visit Heena Dumont MD 08/28/2014 Office visit Kaylynn Mendez ASSOCIATE DIRECTOR OF DEVELOPMENT 08/23/2014 [facility] John Hoskins MD 08/01/2014 Office visit Kaylynn Mendez ASSOCIATE DIRECTOR OF DEVELOPMENT 07/29/2014 Office visit Heena Dumont MD 07/25/2014 Nurse visit Heena Dumont MD 07/17/2014 Office visit Kaylynn Mendez ASSOCIATE DIRECTOR OF DEVELOPMENT 07/11/2014 Office visit Heena Dumont MD 07/01/2014 Office visit Heena Dumont MD 06/25/2014 Office visit Kaylynn Mendez ASSOCIATE DIRECTOR OF DEVELOPMENT 06/12/2014 Office visit Kaylynn Mendez ASSOCIATE DIRECTOR OF DEVELOPMENT 06/06/2014 Office visit Kaylynn Mendez ASSOCIATE DIRECTOR OF DEVELOPMENT 05/27/2014 Office visit Heena Dumont MD 04/20/2014 Office visit Yesica Falcon ASSOCIATE DIRECTOR OF DEVELOPMENT 03/29/2014 Office visit Na Jones ASSOCIATE DIRECTOR OF DEVELOPMENT 03/15/2014 Office visit Heena Dumont MD 2014 Office visit Heena Dumont MD 2014 [facility] Eliseo Hoskins MD 02/27/2014 Nurse visit Heena Dumont MD 02/13/2014 Office visit Lena El ASSOCIATE DIRECTOR OF DEVELOPMENT 02/07/2014 Office visit Heena Dumont MD 02/03/2014 Office visit Na Jones ASSOCIATE DIRECTOR OF DEVELOPMENT 01/30/2014 Office visit Kaylynn Mendez ASSOCIATE DIRECTOR OF DEVELOPMENT 01/24/2014 Office visit Sundeep Russell ASSOCIATE DIRECTOR OF DEVELOPMENT 01/16/2014 Office visit Kaylynn Mendez ASSOCIATE DIRECTOR OF DEVELOPMENT 01/10/2014 Nurse visit Kaylynn Mendez ASSOCIATE DIRECTOR OF DEVELOPMENT 01/08/2014 Office visit Kaylynn Mendez ASSOCIATE DIRECTOR OF DEVELOPMENT 12/05/2013 Office visit Kaylynn Mendez ASSOCIATE DIRECTOR OF DEVELOPMENT 11/21/2013 Office visit Kaylynn Mendez ASSOCIATE DIRECTOR OF DEVELOPMENT 10/23/2013 Office visit Brittni Yanez ASSOCIATE DIRECTOR OF DEVELOPMENT 10/17/2013 Nurse visit Heena Dumont MD 10/12/2013 Office visit Kaylynn Mendez ASSOCIATE DIRECTOR OF DEVELOPMENT 10/02/2013 Office visit Heena Dumont MD 09/20/2013 Nurse visit Kaylynn Mendez ASSOCIATE DIRECTOR OF DEVELOPMENT 09/20/2013 Voided Heena Dumont MD 09/14/2013 Office visit Kaylynn Mendez ASSOCIATE DIRECTOR OF DEVELOPMENT 09/05/2013 Office visit Sundeep Russell ASSOCIATE DIRECTOR OF DEVELOPMENT 09/04/2013 Nurse visit Kaylynn Mendez ASSOCIATE DIRECTOR OF DEVELOPMENT 08/31/2013 Office visit Kaylynn Mendez ASSOCIATE DIRECTOR OF DEVELOPMENT 08/23/2013 Office visit Heena Dumont MD 08/10/2013 Office visit Kaylynn Mendez ASSOCIATE DIRECTOR OF DEVELOPMENT 07/25/2013 Office visit Kaylynn Walker ASSOCIATE DIRECTOR OF DEVELOPMENT 07/18/2013 Office visit Kaylynn Walker ASSOCIATE DIRECTOR OF DEVELOPMENT 07/12/2013 Office visit Kaylynn Walker ASSOCIATE DIRECTOR OF DEVELOPMENT 06/28/2013 Nurse visit Kaylynn Walker ASSOCIATE DIRECTOR OF DEVELOPMENT 06/14/2013 Nurse visit Kaylynn Walker ASSOCIATE DIRECTOR OF DEVELOPMENT 06/08/2013 Nurse visit Kaylynn Walker ASSOCIATE DIRECTOR OF DEVELOPMENT 05/31/2013 Nurse visit Chadd Norris DO 05/18/2013 Office visit Terese Davidson MD 05/16/2013 Office visit Kaylynn Walker ASSOCIATE DIRECTOR OF DEVELOPMENT 05/09/2013 Office visit Kaylynn Mendez ASSOCIATE DIRECTOR OF DEVELOPMENT 04/29/2013 [facility] John Hoskins MD 04/25/2013 Nurse visit Kaylynn Walker ASSOCIATE DIRECTOR OF DEVELOPMENT 04/17/2013 Office visit Kaylynn Walker ASSOCIATE DIRECTOR OF DEVELOPMENT 04/03/2013 Nurse visit Kaylynn Walker ASSOCIATE DIRECTOR OF DEVELOPMENT 04/03/2013 Office visit Terese Davidson MD 03/28/2013 Office visit Sundeep Russell ASSOCIATE DIRECTOR OF DEVELOPMENT 03/21/2013 Office visit Kaylynn Mendez ASSOCIATE DIRECTOR OF DEVELOPMENT 03/20/2013 Office visit Terese Davidson MD 03/14/2013 Nurse visit Kaylynn Walker ASSOCIATE DIRECTOR OF DEVELOPMENT 03/05/2013 Nurse visit Kaylynn Walker ASSOCIATE DIRECTOR OF DEVELOPMENT 02/19/2013 Office visit Terese Davidson MD 02/16/2013 Nurse visit Kaylynn Mendez ASSOCIATE DIRECTOR OF DEVELOPMENT 02/09/2013 Office visit Sundeep Russell ASSOCIATE DIRECTOR OF DEVELOPMENT 02/08/2013 Nurse visit Kaylynn Walker ASSOCIATE DIRECTOR OF DEVELOPMENT 02/01/2013 Nurse visit Kaylynn Walker ASSOCIATE DIRECTOR OF DEVELOPMENT 01/26/2013 Nurse visit Sabrina Andrea THIRD RIGGER 01/25/2013 Office visit Kaylynn Andrea ASSOCIATE DIRECTOR OF DEVELOPMENT 01/22/2013 Office visit Yoan Castaneda MD 01/18/2013 Nurse visit Kaylynn Mendez ASSOCIATE DIRECTOR OF DEVELOPMENT 01/11/2013 Nurse visit Kaylynn Walker ASSOCIATE DIRECTOR OF DEVELOPMENT 01/05/2013 Nurse visit Kaylynn Walker ASSOCIATE DIRECTOR OF DEVELOPMENT 12/29/2012 Office visit Kaylynn Walker ASSOCIATE DIRECTOR OF DEVELOPMENT 11/27/2012 Office visit Kaylynn Mendez ASSOCIATE DIRECTOR OF DEVELOPMENT 11/08/2012 Office visit Odell Tierney MD 11/08/2012 Voided Odell Tierney MD 11/07/2012 Office visit Kaylynn Mendez ASSOCIATE DIRECTOR OF DEVELOPMENT 10/31/2012 [facility] John Hoskins MD 10/31/2012 Office visit Kaylynn Mendez ASSOCIATE DIRECTOR OF DEVELOPMENT 10/19/2012 Office visit Genoveva Ayala ASSOCIATE DIRECTOR OF DEVELOPMENT 10/10/2012 Office visit Kaylynn Mendez ASSOCIATE DIRECTOR OF DEVELOPMENT 10/03/2012 Office visit Kaylynn Walker ASSOCIATE DIRECTOR OF DEVELOPMENT 09/26/2012 Office visit Kaylynn Walker ASSOCIATE DIRECTOR OF DEVELOPMENT 09/06/2012 Office visit Kaylynn Mendez ASSOCIATE DIRECTOR OF DEVELOPMENT 09/06/2012 Office visit Odell Tierney MD 08/31/2012 Voided Kaylynn Mendez ASSOCIATE DIRECTOR OF DEVELOPMENT 07/28/2012 Office visit Kaylynn Mendez ASSOCIATE DIRECTOR OF DEVELOPMENT 07/27/2012 Office visit David Joyner DO 07/20/2012 [facility] David Joyner DO 07/13/2012 [facility] David Joyner DO 07/11/2012 Office visit Kaylynn Mendez ASSOCIATE DIRECTOR OF DEVELOPMENT 06/27/2012 [facility] Odell Tierney MD 06/21/2012 Office visit David Joyner DO 06/21/2012 Office visit Odell Tierney MD 06/20/2012 Office visit Brittni Yanez ASSOCIATE DIRECTOR OF DEVELOPMENT 06/06/2012 Office visit Odell Tierney MD 05/03/2012 Office visit Kaylynn Mendez ASSOCIATE DIRECTOR OF DEVELOPMENT 04/28/2012 Office visit Brittni Yanez ASSOCIATE DIRECTOR OF DEVELOPMENT 04/11/2012 Office visit Kaylynn Andrea ASSOCIATE DIRECTOR OF DEVELOPMENT 04/06/2012 Hospital John Hoskins MD 03/30/2012 Office visit Kaylynn Mendez ASSOCIATE DIRECTOR OF DEVELOPMENT 03/15/2012 Office visit Kaylynn Andrea ASSOCIATE DIRECTOR OF DEVELOPMENT 03/15/2012 Office visit Odell Tierney MD 02/09/2012 Office visit Kaylynn Andrea ASSOCIATE DIRECTOR OF DEVELOPMENT 12/23/2011 Office visit Kaylynn Walker ASSOCIATE DIRECTOR OF DEVELOPMENT 11/02/2011 Office visit Kaylynn Walker ASSOCIATE DIRECTOR OF DEVELOPMENT 10/14/2011 Office visit Kaylynn Walker ASSOCIATE DIRECTOR OF DEVELOPMENT 09/27/2011 Office visit Kaylynn Mendez ASSOCIATE DIRECTOR OF DEVELOPMENT 08/19/2011 Hospital John Hoskins MD 08/18/2011 [facility] John Hoskins MD 08/18/2011 Office visit Kaylynn Mendez ASSOCIATE DIRECTOR OF DEVELOPMENT 08/02/2011 Office visit Kaylynn Mendez ASSOCIATE DIRECTOR OF DEVELOPMENT 07/08/2011 Office visit Kaylynn Andrea ASSOCIATE DIRECTOR OF DEVELOPMENT 07/05/2011 Office visit Odell Tierney MD 06/15/2011 Office visit Kaylynn Mendez ASSOCIATE DIRECTOR OF DEVELOPMENT 05/14/2011 Office visit Kaylynn Andrea ASSOCIATE DIRECTOR OF DEVELOPMENT 05/11/2011 Office visit Odell Tierney MD 04/28/2011 Office visit Kaylynn Mendez ASSOCIATE DIRECTOR OF DEVELOPMENT 03/02/2011 Office visit Chadd Norris DO 02/17/2011 [...]
--- OUTSIDE RECORDS SUMMARY | 2018-05-10 06:28 | XMS REPORT ---
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 [employer] Lancets 33 gauge miscellaneous misc 01/21/2016 use as directed [employer] miscellaneous strip 01/21/2016 07/19/2016 Test 2x daily, [...] 08/27/2014 use as directed for 99 days [place] 5-325 mg oral tablet 06/17/2014 06/27/2014 take [...] a day as needed for 30 days msfeaxnc-ulzzjejtp-SE 3.5-10,000-1 mg/mL-unit/mL-% otic drops,suspension 201401/08/2015 instill 4 [...] Reviewed 04/28/2011 12:00 AM Decadron 1 mg ND#[id number] (Jr) Reviewed 04/28/2011 12:00 AM Depo-Medrol 80 mg NDC#[id number]-Yysjlsno Reviewed 09/02/2015 12:00 AM Toradol 60 Mg NDC#9740-5157-88 Reviewed 09/02/2015 12:00 AM Phenergan, Up to 50 Mg RHC Medicaid Reviewed 09/16/2015 12:00 AM Toradol 60 Mg NDC#1979-5982-69 Reviewed 09/16/2015 12:00 AM Phenergan Up to 50 mg RHC Medicare Reviewed 05/11/2011 12:00 AM N BLOCK INJ OCCIPITAL Reviewed 05/11/2011 12:00 AM Kenalog Jm-[address]-20 ANNA Reviewed 11/13/2015 12:00 AM ASSAY OF [...] SC/IM Reviewed 07/08/2011 12:00 AM Toradol,15mg [facility]#[id number], [place] Reviewed 07/08/2011 12:00 AM Phenergan 50 Mg Im [facility] 8246-5372-65 FP [place] Reviewed 01/21/2016 12:00 AM ECG MONIT/REPRT UP TO 48 HRS Returned 08/02/2011 12:00 AM THER/PROPH/DIAG INJ SC/IM Reviewed 08/02/2011 12:00 AM Decadron 1 mg ND#[id number] (Jr) Reviewed 08/02/2011 12:00 AM Depo-Medrol 80 mg ND#[id number]-Merdnqaj Reviewed 03/05/2016 12:00 AM COMPLETE CBC W/AUTO DIFF WBC Returned 03/05/2016 12:00 AM STREP A ASSAY W/OPTIC Returned 03/05/2016 12:00 AM C-REACTIVE PROTEIN Returned 03/18/2016 12:00 AM [facility] MEDICARE - flu vaccine administration [...] 09/27/2011 12:00 AM Depo-Medrol 80 mg [facility]#[id number]-Ewoljyfk Reviewed 07/06/2016 12:00 AM CHEST X-RAY 4/> VIEWS Returned 10/14/2011 12:00 AM X-RAY EXAM OF ABDOMEN Reviewed 10/14/2011 12:00 AM URINALYSIS AUTO W/O SCOPE Reviewed 12/23/2011 12:00 AM THER/PROPH/DIAG INJ SC/IM Reviewed 12/23/2011 12:00 AM Decadron 1 mg ND#[id number] (Jr) Reviewed 12/23/2011 12:00 AM Depo-Medrol 80 mg ND#[id number]-Lxiiujsk Reviewed 02/09/2012 12:00 AM THER/PROPH/DIAG INJ SC/IM Reviewed 02/09/2012 12:00 AM Decadron 1 mg ND#[id number] (Jr) Reviewed 02/09/2012 12:00 AM Depo-Medrol 80 mg ND#[id number]-Fkwkjnfo Reviewed 03/15/2012 12:00 AM N BLOCK INJ OCCIPITAL Reviewed 03/15/2012 12:00 AM Kenalog Iv-[address]-20 ANNA Reviewed 04/11/2012 12:00 AM COMPLETE CBC W/AUTO DIFF WBC Reviewed 04/11/2012 12:00 AM COMPREHEN METABOLIC PANEL Reviewed 04/11/2012 12:00 AM LIPID PANEL Reviewed 04/11/2012 12:00 AM ASSAY THYROID STIM HORMONE Reviewed 06/20/2012 12:00 AM THER/PROPH/DIAG INJ SC/IM Reviewed 06/20/2012 12:00 AM Decadron, Per 1 Mg ND# [address]-05 Reviewed 06/20/2012 12:00 AM Depo-Medrol, Per 80 Mg ND#8197-9868-88 Reviewed 09/06/2012 12:00 AM N BLOCK INJ OCCIPITAL Reviewed 09/06/2012 12:00 AM Kenalog Wj-[address]-20 ANNA Reviewed 09/06/2012 12:00 AM X-RAY EXAM RIBS UNI 2 VIEWS Reviewed 09/26/2012 12:00 AM THER/PROPH/DIAG INJ SC/IM Reviewed 09/26/2012 12:00 AM Decadron, Per 1 Mg ND# [address]-11 Reviewed 09/26/2012 12:00 AM Depo-Medrol, Per 80 Mg ND#0389-9119-25 Reviewed 10/03/2012 12:00 AM URINALYSIS AUTO W/O SCOPE Reviewed 10/03/2012 12:00 AM THER/PROPH/DIAG INJ SC/IM Reviewed 10/03/2012 12:00 AM Toradol 60 Mg ND#6157-3091-43 Reviewed 10/03/2012 12:00 AM Phenergan, 25Mg ND#7129-9148-23 Reviewed 10/19/2012 12:00 AM N BLOCK INJ OCCIPITAL Reviewed 10/19/2012 12:00 AM Kenalog, Per 10 Mg ND#8212-3792-70 Reviewed 10/19/2012 12:00 AM Toradol 30 Mg [facility]#6349-8433-31 Reviewed 10/19/2012 12:00 AM THER/PROPH/DIAG INJ SC/IM Reviewed 10/31/2012 12:00 AM COMPLETE CBC W/AUTO DIFF WBC Reviewed 10/31/2012 12:00 AM COMPREHEN METABOLIC PANEL Reviewed 10/31/2012 12:00 AM LIPID PANEL Reviewed 11/03/2012 12:[address] THORAX W/O & W/DYE Reviewed 11/08/2012 12:00 AM N BLOCK INJ OCCIPITAL Reviewed 11/08/2012 12:00 AM Kenalog Vy-[address]-20 ANNA Reviewed 11/27/2012 12:00 AM COMPLETE CBC [...] 12:00 AM Decadron, Per 1 Mg [facility]# [address]-39 Reviewed 01/25/2013 12:00 AM Depo-Medrol, Per 80 Mg [facility]#7897-9696-40 Reviewed 01/26/2013 12:00 AM IMMUNOTHERAPY INJECTIONS Reviewed [...] 12:00 AM Decadron, Per 1 Mg [facility]# [address]-25 Reviewed 05/16/2013 12:00 AM Depo-Medrol, Per 80 Mg [facility]#3758-4408-74 Reviewed 05/31/2013 12:00 AM IMMUNOTHERAPY INJECTIONS Reviewed 06/08/2013 12:00 AM IMMUNOTHERAPY INJECTIONS Reviewed 06/14/2013 12:00 AM IMMUNOTHERAPY INJECTIONS Reviewed 06/28/2013 12:00 AM IMMUNOTHERAPY INJECTIONS Reviewed 07/12/2013 12:00 AM X-RAY EXAM RIBS UNI 2 VIEWS Reviewed 07/18/2013 12:00 AM Toradol 60 Mg [facility]#1028-4174-54 Reviewed 07/18/2013 12:00 AM THER/PROPH/DIAG INJ SC/IM Reviewed 08/23/2013 12:00 AM COMPLETE CBC W/AUTO DIFF WBC Reviewed 08/23/2013 12:00 AM COMPREHEN METABOLIC PANEL Reviewed 08/23/2013 12:00 AM LIPID PANEL Reviewed 08/31/2013 12:00 AM X-RAY EXAM OF LOWER LEG Reviewed 09/04/2013 12:00 AM IMMUNOTHERAPY INJECTIONS Reviewed 09/14/2013 12:00 AM THER/PROPH/DIAG INJ SC/IM Reviewed 09/14/2013 12:00 AM Decadron, Per 1 Mg [facility]# [address]-97 Reviewed 09/14/2013 12:00 AM Depo-Medrol, Per 80 Mg [facility]#2545-6241-93 Reviewed 09/20/2013 12:00 AM IMMUNOTHERAPY INJECTIONS Reviewed [...] INJ OCCIPITAL Reviewed 12/10/2009 12:00 AM Kenalog Ry-[address]-20 ANNA Reviewed 12/16/2009 12:00 AM HIV-1ANTIBODY Reviewed 12/16/2009 12:00 AM COMPLETE CBC W/AUTO DIFF WBC Reviewed 12/16/2009 12:00 AM METABOLIC PANEL TOTAL CA Reviewed 12/16/2009 12:00 AM Type and screen Reviewed 12/16/2009 12:00 AM PROTHROMBIN TIME Reviewed 12/16/2009 12:00 AM THROMBOPLASTIN TIME PARTIAL Reviewed 03/18/2010 12:00 AM DRAIN/INJ JOINT/BURSA W/O US Reviewed 03/18/2010 12:00 AM Kengretta Xe-[address]-20 ANNA Reviewed 11/21/2013 12:00 AM RADEX HAND MINIMUM 3 VIEWS Reviewed 06/03/2010 12:00 AM INJ TRIGGER POINT 1/2 MUSCL Reviewed 06/03/2010 12:00 AM Kenalog per 10Mg -[facility]#[address]-01(Niall) Reviewed 12/05/2013 12:00 AM COMPLETE CBC W/AUTO [...] 07/23/2010 12:00 AM Kenalog per 10Mg Im-[facility]#[address]-32(Niall) Reviewed 2014 12:00 AM COMPLETE CBC W/AUTO [...] INJ OCCIPITAL Reviewed 10/01/2010 12:00 AM Kenalog Kr-[address]-20 ANNA Reviewed 07/25/2014 12:00 AM THER/PROPH/DIAG INJ [...] 141 Influenza 04/24/2014 sanofi pasteur PMC Fluzone [id number] Intramuscular Left Upper Arm 02/27/2014 01/15/2014 141 Influenza 02/13/2015 sanofi pasteur PMC Fluzone [id number] Intramuscular Left Deltoid 02/13/2015 01/03/2015 140 Tdap 06/06/2015 [employer] SKB BOOSTRIX [id number] Intramuscular Left Deltoid 06/06/2015 07/23/2014 115 Influenza 03/18/2016 sanofi pasteur PMC Fluzone [id number] Intramuscular Left Deltoid 03/17/2016 01/03/2015 141 History [...] Number Policy Group Number Start Date Medicare [facility] Medicare [facility] [id number] N/A [facility] [id number] N/A Medicare Part A Medicare - Lab/Xray [id number] N/A Medicare Part B Medicare Of [place] [id number] Monday, February 28, 2000 [place] [facility] Medical [facility] Prog [id number] Tuesday, November 10, 2009 Medicare Part A Medicare Part A [id number] N/A [place] [employer] Operator Prog - RHC [facility] Asst Prog - RHC [id number] May [facility] Plan of [id number] Wednesday, May 30, 2012 History of Encounters Visit Date Visit Type Provider 07/09/2016 Office visit Riccardo Cardoza MD 07/06/2016 Office visit Heena Dumont MD 06/18/2016 Office visit Kaylynn Mendez DIGITAL PRODUCT MANAGER 06/07/2016 Office visit Sundeep Russell DIGITAL PRODUCT MANAGER 06/04/2016 Office visit Heena Dumont MD 05/13/2016 Office visit Heena Dumont MD 05/03/2016 Office visit Heena Dumont MD 04/26/2016 Office visit Kaylynn Mendez DIGITAL PRODUCT MANAGER 04/14/2016 Office visit Heena Dumont MD 04/13/2016 Office visit Kaylynn Mendez DIGITAL PRODUCT MANAGER 04/02/2016 Office visit Lena El DIGITAL PRODUCT MANAGER 04/02/2016 Office visit Heena Dumont MD 03/26/2016 Office visit Yesica Falcon DIGITAL PRODUCT MANAGER 03/17/2016 Office visit Heena Dumont MD 03/05/2016 Office visit Kaylynn Mendez DIGITAL PRODUCT MANAGER 02/16/2016 Office visit Heena Dumont MD 02/14/2016 Office visit Na Jones DIGITAL PRODUCT MANAGER 01/16/2016 Office visit Heena Dumont MD 12/16/2015 Office visit Heena Dumont MD 11/24/2015 Office visit Kaylynn Mendez DIGITAL PRODUCT MANAGER 11/18/2015 Office visit Heena Dumont MD 11/03/2015 Office visit Sundeep Russell DIGITAL PRODUCT MANAGER 10/20/2015 Office visit Kaylynn Mendez DIGITAL PRODUCT MANAGER 09/23/2015 Office visit Kaylynn Mendez DIGITAL PRODUCT MANAGER 09/16/[address] Pepe Figueroa MD 09/02/2015 Office visit Kaylynn Mendez DIGITAL PRODUCT MANAGER 09/01/2015 Office visit Kaylynn Mendez DIGITAL PRODUCT MANAGER 07/30/2015 Office visit Heena Dumont MD 07/15/2015 Office visit Kaylynn Mendez DIGITAL PRODUCT MANAGER 07/04/2015 Office visit Heena Dumont MD 06/06/2015 Office visit Heena Dumont MD 06/06/2015 Office visit Kaylynn Mendez DIGITAL PRODUCT MANAGER 06/02/2015 Office visit Kaylynn Mendez DIGITAL PRODUCT MANAGER 05/26/2015 Office visit Kaylynn Mendez DIGITAL PRODUCT MANAGER 05/20/2015 Office visit Kaylynn Mendez DIGITAL PRODUCT MANAGER 05/08/2015 Office visit Heena Dumont MD 05/06/2015 Office visit Kaylynn Mendez DIGITAL PRODUCT MANAGER 04/29/2015 Office visit Kaylynn Mendez DIGITAL PRODUCT MANAGER 03/27/2015 Voided Brittni Yanez DIGITAL PRODUCT MANAGER 03/21/2015 Office visit Heena Dumont MD 03/12/2015 Office visit Kaylynn Mendez DIGITAL PRODUCT MANAGER 02/26/2015 Office visit Brittni Yanez DIGITAL PRODUCT MANAGER 02/13/2015 Office visit Heena Dumont MD 01/15/2015 Office visit Brittni Yanez DIGITAL PRODUCT MANAGER 01/13/2015 Office visit Heena Dumont MD 01/08/[address] Carol Fowler MD 01/01/2015 Office visit Brittni Yanez DIGITAL PRODUCT MANAGER 12/13/2014 Office visit Heena Dumont MD 11/27/2014 Office visit Kaylynn Mendez DIGITAL PRODUCT MANAGER 11/14/2014 Office visit Heena Dumont MD 10/18/2014 Office visit Heena Dumont MD 10/17/2014 [facility] Jonh Hoskins MD 10/09/2014 Office visit Heena Dumont MD 09/25/2014 Office visit Heena Dumont MD 09/17/2014 Office visit Kaylynn Mendez DIGITAL PRODUCT MANAGER 09/04/2014 Office visit Heena Dumont MD 08/28/2014 Office visit Kaylynn Mendez DIGITAL PRODUCT MANAGER 08/23/2014 [facility] Hoskins MD 08/01/2014 Office visit Kaylynn Mendez DIGITAL PRODUCT MANAGER 07/29/2014 Office visit Heena Dumont MD 07/25/2014 Nurse visit Heena Dumont MD 07/17/2014 Office visit Kaylynn Mendez DIGITAL PRODUCT MANAGER 07/11/2014 Office visit Heena Dumont MD 07/01/2014 Office visit Heena Dumont MD 06/25/2014 Office visit Kaylynn Mendez DIGITAL PRODUCT MANAGER 06/12/2014 Office visit Kaylynn Mendez DIGITAL PRODUCT MANAGER 06/06/2014 Office visit Kaylynn Mendez DIGITAL PRODUCT MANAGER 05/27/2014 Office visit Heena Dumont MD 04/20/2014 Office visit Yesica Falcon DIGITAL PRODUCT MANAGER 03/29/2014 Office visit Na Jones DIGITAL PRODUCT MANAGER 03/15/2014 Office visit Heena Dumont MD 2014 Office visit Heena Dumont MD 2014 [facility] Hoskins MD 02/27/2014 Nurse visit Heena Dumont MD 02/13/2014 Office visit Lena El DIGITAL PRODUCT MANAGER 02/07/2014 Office visit Heena Dumont MD 02/03/2014 Office visit Na Jones DIGITAL PRODUCT MANAGER 01/30/2014 Office visit Kaylynn Mendez DIGITAL PRODUCT MANAGER 01/24/2014 Office visit Sundeep Russell DIGITAL PRODUCT MANAGER 01/16/2014 Office visit Kaylynn Mendez DIGITAL PRODUCT MANAGER 01/10/2014 Nurse visit Kaylynn Walker DIGITAL PRODUCT MANAGER 01/08/2014 Office visit Kaylynn Walker DIGITAL PRODUCT MANAGER 12/05/2013 Office visit Kaylynn Walker DIGITAL PRODUCT MANAGER 11/21/2013 Office visit Kaylynn Walker DIGITAL PRODUCT MANAGER 10/23/2013 Office visit Brittni Yanez DIGITAL PRODUCT MANAGER 10/17/2013 Nurse visit Heena Dumont MD 10/12/2013 Office visit Kaylynn Mendez DIGITAL PRODUCT MANAGER 10/02/2013 Office visit Heena Dumont MD 09/20/2013 Nurse visit Kaylynn Mendez DIGITAL PRODUCT MANAGER 09/20/2013 Voided Heena Dumont MD 09/14/2013 Office visit Kaylynn Mendez DIGITAL PRODUCT MANAGER 09/05/2013 Office visit Sundeep Russell DIGITAL PRODUCT MANAGER 09/04/2013 Nurse visit Kaylynn Mendez DIGITAL PRODUCT MANAGER 08/31/2013 Office visit Kaylynn Mendez DIGITAL PRODUCT MANAGER 08/23/2013 Office visit Heena Dumont MD 08/10/2013 Office visit Kaylynn Mendez DIGITAL PRODUCT MANAGER 07/25/2013 Office visit Kaylynn Mendez DIGITAL PRODUCT MANAGER 07/18/2013 Office visit Kaylynn Walker DIGITAL PRODUCT MANAGER 07/12/2013 Office visit Kaylynn Walker DIGITAL PRODUCT MANAGER 06/28/2013 Nurse visit Kaylynn Mendez DIGITAL PRODUCT MANAGER 06/14/2013 Nurse visit Kaylynn Mendez DIGITAL PRODUCT MANAGER 06/08/2013 Nurse visit Kaylynn Walker DIGITAL PRODUCT MANAGER 05/31/2013 Nurse visit Chadd Norris DO 05/18/2013 Office visit Terese Davidson MD 05/16/2013 Office visit Kaylynn Mednez DIGITAL PRODUCT MANAGER 05/09/2013 Office visit Kaylynn Mendez DIGITAL PRODUCT MANAGER 04/29/2013 [facility] John Hoskins MD 04/25/2013 Nurse visit Kaylynn Mendez DIGITAL PRODUCT MANAGER 04/17/2013 Office visit Kaylynn Walker DIGITAL PRODUCT MANAGER 04/03/2013 Nurse visit Kaylynn Mendez DIGITAL PRODUCT MANAGER 04/03/2013 Office visit Terese Davidson MD 03/28/2013 Office visit Sundeep Russell DIGITAL PRODUCT MANAGER 03/21/2013 Office visit Kaylynn Mendez DIGITAL PRODUCT MANAGER 03/20/2013 Office visit Terese Davidson MD 03/14/2013 Nurse visit Kaylynn Mendez DIGITAL PRODUCT MANAGER 03/05/2013 Nurse visit Kaylynn Mendez DIGITAL PRODUCT MANAGER 02/19/2013 Office visit Terese Davidson MD 02/16/2013 Nurse visit Kaylynn Mendez DIGITAL PRODUCT MANAGER 02/09/2013 Office visit Sundeep Russell DIGITAL PRODUCT MANAGER 02/08/2013 Nurse visit Kaylynn Mendez DIGITAL PRODUCT MANAGER 02/01/2013 Nurse visit Kaylynn Walker DIGITAL PRODUCT MANAGER 01/26/2013 Nurse visit Sabrina Andrea TECHNICAL MAINTENANCE TECHNICIAN 01/25/2013 Office visit Kaylynn Mendez DIGITAL PRODUCT MANAGER 01/22/2013 Office visit Yoan Castaneda MD 01/18/2013 Nurse visit Kaylynn Walker DIGITAL PRODUCT MANAGER 01/11/2013 Nurse visit Kaylynn Walker DIGITAL PRODUCT MANAGER 01/05/2013 Nurse visit Kaylynn Walker DIGITAL PRODUCT MANAGER 12/29/2012 Office visit Kaylynn Walker DIGITAL PRODUCT MANAGER 11/27/2012 Office visit Kaylynn Mendez DIGITAL PRODUCT MANAGER 11/08/2012 Office visit Odell Tierney MD 11/08/2012 Voided Odell Tierney MD 11/07/2012 Office visit Kaylynn Mendez DIGITAL PRODUCT MANAGER 10/31/2012 [facility] John Hoskins MD 10/31/2012 Office visit Kaylynn Mendez DIGITAL PRODUCT MANAGER 10/19/2012 Office visit Genoveva Ayala DIGITAL PRODUCT MANAGER 10/10/2012 Office visit Kaylynn Mendez DIGITAL PRODUCT MANAGER 10/03/2012 Office visit Kaylynn Mendez DIGITAL PRODUCT MANAGER 09/26/2012 Office visit Kaylynn Mendez DIGITAL PRODUCT MANAGER 09/06/2012 Office visit Kaylynn Mendez DIGITAL PRODUCT MANAGER 09/06/2012 Office visit Odell Tierney MD 08/31/2012 Voided Kaylynn Mendez DIGITAL PRODUCT MANAGER 07/28/2012 Office visit Kaylynn Mendez DIGITAL PRODUCT MANAGER 07/27/2012 Office visit David Joyner DO 07/20/2012 [facility] David Ar DO 07/13/2012 [facility] DO 07/11/2012 Office visit Kaylynn Mendez DIGITAL PRODUCT MANAGER 06/27/2012 [facility] Odell Tierney MD 06/21/2012 Office visit David Joyner DO 06/21/2012 Office visit Odell Tierney MD 06/20/2012 Office visit Brittni Yanez DIGITAL PRODUCT MANAGER 06/06/2012 Office visit Odell Tierney MD 05/03/2012 Office visit Kaylynn Mendez DIGITAL PRODUCT MANAGER 04/28/2012 Office visit Brittni Yanez DIGITAL PRODUCT MANAGER 04/11/2012 Office visit Kaylynn Mendez DIGITAL PRODUCT MANAGER 04/06/2012 [facility] John Hoskins MD 03/30/2012 Office visit Kaylynn Mendez DIGITAL PRODUCT MANAGER 03/15/2012 Office visit Kaylynn Mendez DIGITAL PRODUCT MANAGER 03/15/2012 Office visit Odell Tierney MD 02/09/2012 Office visit Kaylynn Mendez DIGITAL PRODUCT MANAGER 12/23/2011 Office visit Kaylynn Mendez DIGITAL PRODUCT MANAGER 11/02/2011 Office visit Kaylynn Mendez DIGITAL PRODUCT MANAGER 10/14/2011 Office visit Kaylynn Mendez DIGITAL PRODUCT MANAGER 09/27/2011 Office visit Kaylynn Mendez DIGITAL PRODUCT MANAGER 08/19/2011 [facility] Hos[facility] MD 08/18/2011 [facility] Hoskins MD 08/18/2011 Office visit Kaylynn Mendez DIGITAL PRODUCT MANAGER 08/02/2011 Office visit Kaylynn Mendez DIGITAL PRODUCT MANAGER 07/08/2011 Office visit Kaylynn Mendez DIGITAL PRODUCT MANAGER 07/05/2011 Office visit Odell Tierney MD 06/15/2011 Office visit Kaylynn Mendez DIGITAL PRODUCT MANAGER 05/14/2011 Office visit Kaylynn Mendez DIGITAL PRODUCT MANAGER 05/11/2011 Office visit Odell Tierney MD 04/28/2011 Office visit Kaylynn Andrea DIGITAL PRODUCT MANAGER 03/02/2011 Office visit Chadd Norris DO [...]
--- OUTSIDE RECORDS SUMMARY | 2018-05-10 06:35 | XMS REPORT ---
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 dehqfpbk-msqxbehmy-LE 3.5-10,000-1 mg/mL-unit/mL-% otic drops,suspension 201607/23/2016 instill 4 [...] AM Decadron 1 mg [facility]#[id number] (Jr) Reviewed 04/28/2011 12:00 AM Depo-Medrol 80 mg [facility]#04029652080-Qakiikov Reviewed 09/02/2015 12:00 AM Toradol 60 Mg [facility]#6032-6876-49 Reviewed 09/02/2015 12:00 AM Phenergan, Up to 50 Mg RHC Medicaid Reviewed 09/16/2015 12:00 AM Toradol 60 Mg [facility]#5304-9244-92 Reviewed 09/16/2015 12:00 AM Phenergan Up to 50 mg RHC Medicare Reviewed 05/11/2011 12:00 AM N BLOCK INJ OCCIPITAL Reviewed 05/11/2011 12:00 AM Kenalog Zv-[address]-20 ANNA Reviewed 11/13/2015 12:00 AM ASSAY OF [...] 07/08/2011 12:00 AM Toradol,15mg [facility]#[id number], [place] Reviewed 07/08/2011 12:00 AM Phenergan 50 Mg Im [facility] 8668-7723-92 [place] Reviewed 01/21/2016 12:00 AM ECG MONIT/REPRT UP TO 48 HRS Returned 08/02/2011 12:00 AM THER/PROPH/DIAG INJ SC/IM Reviewed 08/02/2011 12:00 AM Decadron 1 mg [facility]#69392076994 (Jr) Reviewed 08/02/2011 12:00 AM Depo-Medrol 80 mg [facility]#[id number]-Djvusoti Reviewed 03/05/2016 12:00 AM COMPLETE CBC W/AUTO DIFF WBC Reviewed 03/05/2016 12:00 AM STREP A ASSAY W/OPTIC Reviewed 03/05/2016 12:00 AM C-REACTIVE PROTEIN Reviewed 03/18/2016 12:00 AM [facility] MEDICARE - flu vaccine administration [...] AM Depo-Medrol 80 mg [facility]#49443958960-Sgucegji Reviewed 09/27/2011 12:00 AM Depo-Medrol 40 mg [facility]#9796016563 Reviewed 07/06/2016 12:00 AM CHEST X-RAY 4/> [...] Reviewed 12/23/2011 12:00 AM Decadron 1 mg [facility]#[id number] (Jr) Reviewed 12/23/2011 12:00 AM Depo-Medrol 80 mg [facility]#[id number]-Quzrlkfz Reviewed 11/02/2016 11:45 AM URINALYSIS AUTO W/O SCOPE Reviewed 11/23/2016 12:00 AM COMPLETE CBC W/AUTO DIFF WBC Returned 11/23/2016 12:00 AM COMPREHEN METABOLIC PANEL Returned 11/23/2016 12:00 AM CHEST X-RAY 2VW FRONTAL&LATL Returned 11/23/2016 12:00 AM FIBRIN DEGRADE SEMIQUANT Returned 11/23/2016 12:00 AM ASSAY OF TROPONIN QUANT Returned 11/23/2016 12:00 AM ELECTROCARDIOGRAM TRACING Reviewed 12/02/2016 12:00 AM X-RAY EXAM OF ABDOMEN Returned 02/09/2012 12:00 AM THER/PROPH/DIAG INJ SC/IM Reviewed 02/09/2012 12:00 AM Decadron 1 mg [facility]#[id number] (Jr) Reviewed 02/09/2012 12:00 AM Depo-Medrol 80 mg [facility]#85939347744-Seuxipev Reviewed 03/15/2012 12:00 AM N BLOCK INJ OCCIPITAL Reviewed 03/15/2012 12:00 AM Kenalog Ah-[address]-20 ANNA Reviewed 04/11/2012 12:00 AM COMPLETE CBC W/AUTO DIFF WBC Reviewed 04/11/2012 12:00 AM COMPREHEN METABOLIC PANEL Reviewed 04/11/2012 12:00 AM LIPID PANEL Reviewed 04/11/2012 12:00 AM ASSAY THYROID STIM HORMONE Reviewed 04/11/2012 12:00 AM DESTRUCT PREMALG LES 2-14 Reviewed 06/20/2012 12:00 AM THER/PROPH/DIAG INJ SC/IM Reviewed 06/20/2012 12:00 AM Decadron, Per 1 Mg [facility]# [address]-46 Reviewed 06/20/2012 12:00 AM Depo-Medrol, Per 80 Mg [facility]#4172-2187-30 Reviewed 09/06/2012 12:00 AM N BLOCK INJ OCCIPITAL Reviewed 09/06/2012 12:00 AM Kenalog Zq-[address]-20 ANNA Reviewed 09/06/2012 12:00 AM X-RAY EXAM RIBS UNI 2 VIEWS Reviewed 09/26/2012 12:00 AM THER/PROPH/DIAG INJ SC/IM Reviewed 09/26/2012 12:00 AM Decadron, Per 1 Mg [facility]# [address]-24 Reviewed 09/26/2012 12:00 AM Depo-Medrol, Per 80 Mg [facility]#9667-9688-29 Reviewed 10/03/2012 12:00 AM URINALYSIS AUTO W/O SCOPE Reviewed 10/03/2012 12:00 AM THER/PROPH/DIAG INJ SC/IM Reviewed 10/03/2012 12:00 AM Toradol 60 Mg [facility]#9832-4753-29 Reviewed 10/03/2012 12:00 AM Phenergan, 25Mg [facility]#5982-9854-11 Reviewed 10/19/2012 12:00 AM N BLOCK INJ OCCIPITAL Reviewed 10/19/2012 12:00 AM Kenalog, Per 10 Mg [facility]#0522-[address]-69 Reviewed 10/19/2012 12:00 AM Toradol 30 Mg [facility]#7308-4275-49 Reviewed 10/19/2012 12:00 AM THER/PROPH/DIAG INJ SC/IM Reviewed 10/31/2012 12:00 AM COMPLETE CBC W/AUTO DIFF WBC Reviewed 10/31/2012 12:00 AM COMPREHEN METABOLIC PANEL Reviewed 10/31/2012 12:00 AM LIPID PANEL Reviewed 10/31/2012 12:00 AM ELECTROCARDIOGRAM COMPLETE Reviewed 11/03/2012 12:[address] THORAX W/O & W/DYE Reviewed 11/08/2012 12:00 AM N BLOCK INJ OCCIPITAL Reviewed 11/08/2012 12:00 AM Kenalog Es-[address]-20 ANNA Reviewed 11/27/2012 12:00 AM COMPLETE CBC [...] Decadron, Per 1 Mg [facility]# [address]-12 Reviewed 01/25/2013 12:00 AM Depo-Medrol, Per 80 Mg [place]#4215-6615-08 Reviewed 01/26/2013 12:00 AM IMMUNOTHERAPY ONE INJECTION [...] 12:00 AM Decadron, Per 1 Mg [place]# [address]-28 Reviewed 05/16/2013 12:00 AM Depo-Medrol, Per 80 Mg [facility]#4569-2792-85 Reviewed 05/31/2013 12:00 AM IMMUNOTHERAPY INJECTIONS Reviewed 06/08/2013 12:00 AM IMMUNOTHERAPY INJECTIONS Reviewed 06/14/2013 12:00 AM IMMUNOTHERAPY INJECTIONS Reviewed 06/28/2013 12:00 AM IMMUNOTHERAPY INJECTIONS Reviewed 07/12/2013 12:00 AM X-RAY EXAM RIBS UNI 2 VIEWS Reviewed 07/18/2013 12:00 AM Toradol 60 Mg [facility]#7590-0206-76 Reviewed 07/18/2013 12:00 AM THER/PROPH/DIAG INJ SC/IM Reviewed 08/23/2013 12:00 AM COMPLETE CBC W/AUTO DIFF WBC Reviewed 08/23/2013 12:00 AM COMPREHEN METABOLIC PANEL Reviewed 08/23/2013 12:00 AM LIPID PANEL Reviewed 08/31/2013 12:00 AM X-RAY EXAM OF LOWER LEG Reviewed 09/04/2013 12:00 AM IMMUNOTHERAPY INJECTIONS Reviewed 09/14/2013 12:00 AM THER/PROPH/DIAG INJ SC/IM Reviewed 09/14/2013 12:00 AM Decadron, Per 1 Mg [facility]# [address]-09 Reviewed 09/14/2013 12:00 AM Depo-Medrol, Per 80 Mg [facility]#3226-2259-18 Reviewed 09/20/2013 12:00 AM IMMUNOTHERAPY INJECTIONS Reviewed [...] INJ OCCIPITAL Reviewed 12/10/2009 12:00 AM Kenalog Gx-[address]-20 ANNA Reviewed 12/16/2009 12:00 AM HIV-1ANTIBODY Reviewed 12/16/2009 12:00 AM COMPLETE CBC W/AUTO DIFF WBC Reviewed 12/16/2009 12:00 AM METABOLIC PANEL TOTAL CA Reviewed 12/16/2009 12:00 AM Type and screen Reviewed 12/16/2009 12:00 AM PROTHROMBIN TIME Reviewed 12/16/2009 12:00 AM THROMBOPLASTIN TIME PARTIAL Reviewed 03/18/2010 12:00 AM DRAIN/INJ JOINT/BURSA W/O US Reviewed 03/18/2010 12:00 AM Kenalog On-[address]-20 ANNA Reviewed 11/21/2013 12:00 AM RADEX HAND MINIMUM 3 VIEWS Reviewed 06/03/2010 12:00 AM INJ TRIGGER POINT 1/2 MUSCL Reviewed 06/03/2010 12:00 AM Kenalog per 10Mg Im-Ndc#[address]-15(Niall) Reviewed 12/05/2013 12:00 AM COMPLETE CBC W/AUTO [...] Reviewed 07/23/2010 12:00 AM Kenalog per 10Mg Im-[facility]#[address]-03(Niall) Reviewed 2014 12:00 AM COMPLETE CBC W/AUTO [...] INJ OCCIPITAL Reviewed 10/01/2010 12:00 AM Kengretta Sp-[address]-20 ANNA Reviewed 07/25/2014 12:00 AM THER/PROPH/DIAG INJ [...] Quant,IgM <0.80 RMSF , IgG, EIA Negative [facility] [...] 141 Influenza 04/24/2014 sanofi pasteur PMC Fluzone [id number] Intramuscular Left Upper Arm 02/27/2014 01/15/2014 141 Influenza 02/13/2015 sanofi pasteur PMC Fluzone [id number] Intramuscular Left Deltoid 02/13/2015 01/03/2015 140 Tdap 06/06/2015 [employer] SKB BOOSTRIX [id number] Intramuscular Left Deltoid 06/06/2015 07/23/2014 115 Influenza 03/18/2016 sanofi pasteur PMC Fluzone [id number] Intramuscular Left Deltoid 03/17/2016 01/03/2015 141 History [...] Sleep Apnea 08/10/2013 Postoperative Examination Following Surgery Sep 2010 2:46PM Menopausal Syndrome Feb 04 2010 [...] Radiculitis LT L4-5 Dec 14 2016 8:43AM Payers Insurance Name Company Name Plan Name Plan Number Policy Number Policy Group Number Start Date Medicare RHC Medicare RHC [id number] N/A [facility] RHC Comm [id number] N/A Medicare Part A Medicare - Lab/Xray [id number] N/A Medicare Part B Medicare Of [place] [id number] Monday, February 28, 2000 [place] [employer] [place] [employer] [place] [id number] Tuesday, November 10, 2009 Medicare Part A Medicare Part A [id number] N/A [place] [employer] - R[place] [employer] - RHC [id number] May On [facility] of [id number] Wednesday, May 30, 2012 History of Encounters Visit Date Visit Type Provider 12/02/2016 Office visit Heena Dumont MD 11/23/2016 Office visit Kaylynn Mendez ECOLOGICAL ECONOMIST 11/17/2016 Office visit Kaylynn Mendez ECOLOGICAL ECONOMIST 11/05/2016 Office visit Riccardo Cardoza MD 11/02/2016 Office visit Heena Dumont MD 10/06/2016 Office visit Kaylynn Mendez ECOLOGICAL ECONOMIST 09/22/2016 Office visit Heena Dumont MD 09/09/2016 Office visit Kaylynn Mendez ECOLOGICAL ECONOMIST 08/27/2016 Office visit Riccardo Cardoza MD 08/26/2016 Office visit Heena Dumont MD 07/09/2016 Office visit Riccardo Cardoza MD 07/06/2016 Office visit Heena Dumont MD 06/18/2016 Office visit Kaylynn Mendez ECOLOGICAL ECONOMIST 06/07/2016 Office visit Sundeep Russell ECOLOGICAL ECONOMIST 06/04/2016 Office visit Heena Dumont MD 05/13/2016 Office visit Heena Dumont MD 05/03/2016 Office visit Heena Dumont MD 04/26/2016 Office visit Kaylynn Mendez ECOLOGICAL ECONOMIST 04/14/2016 Office visit Heena Dumont MD 04/13/2016 Office visit Kaylynn Mendez ECOLOGICAL ECONOMIST 04/02/2016 Office visit Lena El ECOLOGICAL ECONOMIST 04/02/2016 Office visit Heena Dumont MD 03/26/2016 Office visit Yesica Falcon ECOLOGICAL ECONOMIST 03/17/2016 Office visit Heena Dumont MD 03/05/2016 Office visit Kaylynn Mendez ECOLOGICAL ECONOMIST 02/16/2016 Office visit Heena Dumont MD 02/14/2016 Office visit Na Jones ECOLOGICAL ECONOMIST 01/16/2016 Office visit Heena Dmuont MD 12/16/2015 Office visit Heena Dumont MD 11/24/2015 Office visit Kaylynn Mendez ECOLOGICAL ECONOMIST 11/18/2015 Office visit Heena Dumont MD 11/03/2015 Office visit Sundeep Russell ECOLOGICAL ECONOMIST 10/20/2015 Office visit Kaylynn Mendez ECOLOGICAL ECONOMIST 09/23/2015 Office visit Kaylynn Mendez ECOLOGICAL ECONOMIST 09/16/[address] Pepe Figueroa MD 09/02/2015 Office visit Kaylynn Mendez ECOLOGICAL ECONOMIST 09/01/2015 Office visit Kaylynn Mendez ECOLOGICAL ECONOMIST 07/30/2015 Office visit Heena Dumont MD 07/15/2015 Office visit Kaylynn Mendez ECOLOGICAL ECONOMIST 07/04/2015 Office visit Heena Dumont MD 06/06/2015 Office visit Heena Dumont MD 06/06/2015 Office visit Kaylynn Mendez ECOLOGICAL ECONOMIST 06/02/2015 Office visit Kaylynn Walker ECOLOGICAL ECONOMIST 05/26/2015 Office visit Kaylynn Walker ECOLOGICAL ECONOMIST 05/20/2015 Office visit Kaylynn Mendez ECOLOGICAL ECONOMIST 05/08/2015 Office visit Heena Dumont MD 05/06/2015 Office visit Kaylynn Mendez ECOLOGICAL ECONOMIST 04/29/2015 Office visit Kaylynn Walker ECOLOGICAL ECONOMIST 03/27/2015 Voided Brittni Yanez ECOLOGICAL ECONOMIST 03/21/2015 Office visit Heena Dumont MD 03/12/2015 Office visit Kaylynn Mendez ECOLOGICAL ECONOMIST 02/26/2015 Office visit Brittni Yanez ECOLOGICAL ECONOMIST 02/13/2015 Office visit Heena Dumont MD 01/15/2015 Office visit Brittni Yanez ECOLOGICAL ECONOMIST 01/13/2015 Office visit Heena Dumont MD 01/08/[address] Carol Fowler MD 01/01/2015 Office visit Brittni Yanez ECOLOGICAL ECONOMIST 12/13/2014 Office visit Heena Dumont MD 11/27/2014 Office visit Kaylynn Mendez ECOLOGICAL ECONOMIST 11/14/2014 Office visit Heena Dumont MD 10/18/2014 Office visit Heena Dumont MD 10/17/2014 [facility] Eliseo Hoskins MD 10/09/2014 Office visit Heena Dumont MD 09/25/2014 Office visit Heena Dumont MD 09/17/2014 Office visit Kaylynn Mendez ECOLOGICAL ECONOMIST 09/04/2014 Office visit Heena Dumont MD 08/28/2014 Office visit Kaylynn Mendez ECOLOGICAL ECONOMIST 08/23/2014 [facility] Eliseo Hoskins MD 08/01/2014 Office visit Kaylynn Mendez ECOLOGICAL ECONOMIST 07/29/2014 Office visit Heena Dumont MD 07/25/2014 Nurse visit Heena Dumont MD 07/17/2014 Office visit Kaylynn Mendez ECOLOGICAL ECONOMIST 07/11/2014 Office visit Heena Dumont MD 07/01/2014 Office visit Heena Dumont MD 06/25/2014 Office visit Kaylynn Mendez ECOLOGICAL ECONOMIST 06/12/2014 Office visit Kaylynn Mendez ECOLOGICAL ECONOMIST 06/06/2014 Office visit Kaylynn Mendez ECOLOGICAL ECONOMIST 05/27/2014 Office visit Heena Dumont MD 04/20/2014 Office visit Yesica Falcon ECOLOGICAL ECONOMIST 03/29/2014 Office visit Na Jones ECOLOGICAL ECONOMIST 03/15/2014 Office visit Heena Dumont MD 2014 Office visit Heena Dumont MD 2014 [facility] Eliseo Hoskins MD 02/27/2014 Nurse visit Heena Dumont MD 02/13/2014 Office visit Lena El ECOLOGICAL ECONOMIST 02/07/2014 Office visit Heena Dumont MD 02/03/2014 Office visit Na Jones ECOLOGICAL ECONOMIST 01/30/2014 Office visit Kaylynn Mendez ECOLOGICAL ECONOMIST 01/24/2014 Office visit Sundeep Russell ECOLOGICAL ECONOMIST 01/16/2014 Office visit Kaylynn Mendez ECOLOGICAL ECONOMIST 01/10/2014 Nurse visit Kaylynn Mendez ECOLOGICAL ECONOMIST 01/08/2014 Office visit Kaylynn Mendez ECOLOGICAL ECONOMIST 12/05/2013 Office visit Kaylynn Mendez ECOLOGICAL ECONOMIST 11/21/2013 Office visit Kaylynn Mendez ECOLOGICAL ECONOMIST 10/23/2013 Office visit Brittni Yanez ECOLOGICAL ECONOMIST 10/17/2013 Nurse visit Heena Dumont MD 10/12/2013 Office visit Kaylynn Mendez ECOLOGICAL ECONOMIST 10/02/2013 Office visit Heena Dumont MD 09/20/2013 Nurse visit Kaylynn Mendez ECOLOGICAL ECONOMIST 09/20/2013 Voided Heena Dumont MD 09/14/2013 Office visit Kaylynn Mendez ECOLOGICAL ECONOMIST 09/05/2013 Office visit Sundeep Russell ECOLOGICAL ECONOMIST 09/04/2013 Nurse visit Kaylynn Mendez ECOLOGICAL ECONOMIST 08/31/2013 Office visit Kaylynn Mendez ECOLOGICAL ECONOMIST 08/23/2013 Office visit Heena Dumont MD 08/10/2013 Office visit Kaylynn Walker ECOLOGICAL ECONOMIST 07/25/2013 Office visit Kaylynn Walker ECOLOGICAL ECONOMIST 07/18/2013 Office visit Kaylynn Walker ECOLOGICAL ECONOMIST 07/12/2013 Office visit Kaylynn Walker ECOLOGICAL ECONOMIST 06/28/2013 Nurse visit Kaylynn Mendez ECOLOGICAL ECONOMIST 06/14/2013 Nurse visit Kaylynn Mendez ECOLOGICAL ECONOMIST 06/08/2013 Nurse visit Kaylynn Mendez ECOLOGICAL ECONOMIST 05/31/2013 Nurse visit Chadd Norris DO 05/18/2013 Office visit Terese Davidson MD 05/16/2013 Office visit Kaylynn Mendez ECOLOGICAL ECONOMIST 05/09/2013 Office visit Kaylynn Mendez ECOLOGICAL ECONOMIST 04/29/2013 [facility] Eliseo Hoskins MD 04/25/2013 Nurse visit Kaylynn Mendez ECOLOGICAL ECONOMIST 04/17/2013 Office visit Kaylnyn Mendez ECOLOGICAL ECONOMIST 04/03/2013 Nurse visit Kaylynn Mendez ECOLOGICAL ECONOMIST 04/03/2013 Office visit Terese Davidson MD 03/28/2013 Office visit Sundeep Russell ECOLOGICAL ECONOMIST 03/21/2013 Office visit Kaylynn Mendez ECOLOGICAL ECONOMIST 03/20/2013 Office visit Terese Davidson MD 03/14/2013 Nurse visit Kaylynn Mendez ECOLOGICAL ECONOMIST 03/05/2013 Nurse visit Kaylynn Mendez ECOLOGICAL ECONOMIST 02/19/2013 Office visit Terese Davidson MD 02/16/2013 Nurse visit Kaylynn Mendez ECOLOGICAL ECONOMIST 02/09/2013 Office visit Sundeep Russell ECOLOGICAL ECONOMIST 02/08/2013 Nurse visit Kaylynn Mendez ECOLOGICAL ECONOMIST 02/01/2013 Nurse visit Kaylynn Mendez ECOLOGICAL ECONOMIST 01/26/2013 Nurse visit Sabrina Mendez DIRECTOR OF PROCUREMENT 01/25/2013 Office visit Kaylynn Mendez ECOLOGICAL ECONOMIST 01/22/2013 Office visit Yoan Castaneda MD 01/18/2013 Nurse visit Kaylynn Mendez ECOLOGICAL ECONOMIST 01/11/2013 Nurse visit Kaylynn Mendez ECOLOGICAL ECONOMIST 01/05/2013 Nurse visit Kaylynn Mendez ECOLOGICAL ECONOMIST 12/29/2012 Office visit Kaylynn Mednez ECOLOGICAL ECONOMIST 11/27/2012 Office visit Kaylynn Walker ECOLOGICAL ECONOMIST 11/08/2012 Office visit Odell Tierney MD 11/08/2012 Voided Odell Tierney MD 11/07/2012 Office visit Kaylynn Walker ECOLOGICAL ECONOMIST 10/31/2012 [facility] John Hoskins MD 10/31/2012 Office visit Kaylynn Walker ECOLOGICAL ECONOMIST 10/19/2012 Office visit Genoveva Ayala ECOLOGICAL ECONOMIST 10/10/2012 Office visit Kaylynn Walker ECOLOGICAL ECONOMIST 10/03/2012 Office visit Kaylynn Walker ECOLOGICAL ECONOMIST 09/26/2012 Office visit Kaylynn Walker ECOLOGICAL ECONOMIST 09/06/2012 Office visit Kaylynn Walker ECOLOGICAL ECONOMIST 09/06/2012 Office visit Odell Tierney MD 08/31/2012 Voided Kaylynn Andrea ECOLOGICAL ECONOMIST 07/28/2012 Office visit Kaylynn Walker ECOLOGICAL ECONOMIST 07/27/2012 Office visit David Joyner DO 07/20/2012 [facility] 07/13/2012 [facility] 07/11/2012 Office visit Kaylynn Andrea ECOLOGICAL ECONOMIST 06/27/2012 [facility] Odell Tierney MD 06/21/2012 Office visit David Joyner DO 06/21/2012 Office visit Odell Tierney MD 06/20/2012 Office visit Brittni Yanez ECOLOGICAL ECONOMIST 06/06/2012 Office visit Odell Tierney MD 05/03/2012 Office visit Kaylynn Walker ECOLOGICAL ECONOMIST 04/28/2012 Office visit Brittni Yanez ECOLOGICAL ECONOMIST 04/11/2012 Office visit Kaylynn Walker ECOLOGICAL ECONOMIST 04/06/2012 [facility] John Hoskins MD 03/30/2012 Office visit Kaylynn Walker ECOLOGICAL ECONOMIST 03/15/2012 Office visit Kaylynn Mendez ECOLOGICAL ECONOMIST 03/15/2012 Office visit Odell Tierney MD 02/09/2012 Office visit Kaylynn Walker ECOLOGICAL ECONOMIST 12/23/2011 Office visit Kaylynn Walker ECOLOGICAL ECONOMIST 11/02/2011 Office visit Kaylynn Walker ECOLOGICAL ECONOMIST 10/14/2011 Office visit Kaylynn Walker ECOLOGICAL ECONOMIST 09/27/2011 Office visit Kaylynn Mendez ECOLOGICAL ECONOMIST 08/19/2011 [facility] John Hoskins MD 08/18/2011 [facility] John Hoskins MD 08/18/2011 Office visit Kaylynn Walker ECOLOGICAL ECONOMIST 08/02/2011 Office visit Kaylynn Walker ECOLOGICAL ECONOMIST 07/08/2011 Office visit Kaylynn Walker ECOLOGICAL ECONOMIST 07/05/2011 Office visit Odell Tierney MD 06/15/2011 Office visit Kaylynn Walker ECOLOGICAL ECONOMIST 05/14/2011 Office visit Kaylynn Walker ECOLOGICAL ECONOMIST 05/11/2011 Office visit Odell Tierney MD 04/28/2011 Office visit Kaylynn Mendez ECOLOGICAL ECONOMIST 03/02/2011 Office visit Chadd Norris DO 02/17/2011 [...]
--- OUTSIDE RECORDS SUMMARY | 2018-05-10 06:43 | XMS REPORT ---
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 urwoolzv-tkrmdlasn-LJ 3.5-10,000-1 mg/mL-unit/mL-% otic drops,suspension 201607/23/2016 instill 4 [...] HC BMI BSA BMI Percentile O2 Sat(%) 09/06/2017 10:48:00 AM 102 mmHg 64 mmHg [...] Reviewed 04/28/2011 12:00 AM Decadron [address] [facility]#[id number] (Jr) Reviewed 04/28/2011 12:00 AM Depo-Medrol [address] [facility]#[id number]-Eilptspg Reviewed 09/02/2015 12:00 AM Toradol 60 Mg [place]#7895-3269-98 Reviewed 09/02/2015 12:00 AM Phenergan, Up to 50 Mg RHC Medicaid Reviewed 09/16/2015 12:00 AM Toradol [address] [facility]#7903-2636-63 Reviewed 09/16/2015 12:00 AM Phenergan Up to 50 mg RHC Medicare Reviewed 05/11/2011 12:00 AM N BLOCK INJ OCCIPITAL Reviewed 05/11/2011 12:00 AM Quentin Md-[address]-20 ANNA Reviewed 11/13/2015 12:00 AM ASSAY OF [...] INJ SC/IM Reviewed 07/08/2011 12:00 AM Toradol,15mg [place]#[id number], Hetmejiaer Reviewed 07/08/2011 12:00 AM Phenergan 50 Mg Im [facility] 0731-7299-01 [place] Reviewed 01/21/2016 12:00 AM ECG MONIT/REPRT UP TO 48 HRS Returned 08/02/2011 12:00 AM THER/PROPH/DIAG INJ SC/IM Reviewed 08/02/2011 12:00 AM Decadron [address] [facility]#[id number] (Jr) Reviewed 08/02/2011 12:00 AM Depo-Medrol [address] [facility]#[id number]-Keknaizx Reviewed 03/05/2016 12:00 AM COMPLETE CBC W/AUTO DIFF WBC Reviewed 03/05/2016 12:00 AM STREP A ASSAY W/OPTIC Reviewed 03/05/2016 12:00 AM C-REACTIVE PROTEIN Reviewed 03/18/2016 12:00 AM [facility] MEDICARE - flu vaccine administration Reviewed 03/18/2016 [...] AM Depo-Medrol [address] [facility]#[id number]-Lmdfwpqp Reviewed 09/27/2011 12:00 AM Depo-Medrol [address] [facility]#[id number] Reviewed 07/06/2016 12:00 AM CHEST X-RAY 4/> [...] Reviewed 12/23/2011 12:00 AM Decadron 1 mg [facility]#[id number] (Jr) Reviewed 12/23/2011 12:00 AM Depo-Medrol 80 mg [facility]#[id number]-Jjoqeejg Reviewed 11/02/2016 11:45 AM URINALYSIS AUTO W/O [...] Reviewed 02/09/2012 12:00 AM Decadron 1 mg [facility]#[id number] (Jr) Reviewed 02/09/2012 12:00 AM Depo-Medrol 80 mg [facility]#[id number]-Iixppwxq Reviewed 02/21/2017 12:00 AM CULTURE OTHR SPECIMN AEROBIC Returned 02/21/2017 12:00 AM INFLUENZA ASSAY W/OPTIC Returned 02/23/2017 12:00 AM COMPLETE CBC W/AUTO DIFF WBC Reviewed 02/23/2017 12:00 AM X-RAY EXAM OF KNEE 3 Returned 03/15/2012 12:00 AM N BLOCK INJ OCCIPITAL Reviewed 03/15/2012 12:00 AM Kenalog Zb-[address]-20 ANNA Reviewed 04/11/2012 12:00 AM COMPLETE CBC [...] 06/20/2012 12:00 AM Decadron, Per [address] [facility]# [address]-48 Reviewed 06/20/2012 12:00 AM Depo-Medrol, Per [address] [facility]#3791-0201-70 Reviewed 08/15/2017 12:00 AM COMPLETE CBC W/AUTO DIFF WBC Returned 08/15/2017 12:00 AM COMPREHEN METABOLIC PANEL Returned 08/15/2017 12:00 AM URINALYSIS AUTO W/SCOPE Returned 09/06/2012 12:00 AM N BLOCK INJ OCCIPITAL Reviewed 09/06/2012 12:00 AM Kenalog Ad-[address]-20 ANNA Reviewed 09/06/2012 12:00 AM X-RAY EXAM RIBS UNI 2 VIEWS Reviewed 09/26/2012 12:00 AM THER/PROPH/DIAG INJ SC/IM Reviewed 09/26/2012 12:00 AM Decadron, Per [address] [facility]# [address]-94 Reviewed 09/26/2012 12:00 AM Depo-Medrol, Per [address] [facility]#5645-7854-14 Reviewed 10/03/2012 12:00 AM URINALYSIS AUTO W/O SCOPE Reviewed 10/03/2012 12:00 AM THER/PROPH/DIAG INJ SC/IM Reviewed 10/03/2012 12:00 AM Toradol [address] [facility]#4219-5094-13 Reviewed 10/03/2012 12:00 AM Phenergan, 25Mg [facility]#5857-6378-60 Reviewed 10/19/2012 12:00 AM N BLOCK INJ OCCIPITAL Reviewed 10/19/2012 12:00 AM Kenalog, Per [address] [facility]#0156-5345-93 Reviewed 10/19/2012 12:00 AM Toradol [address] [facility]#9209-1688-49 Reviewed 10/19/2012 12:00 AM THER/PROPH/DIAG INJ SC/IM Reviewed 10/31/2012 12:00 AM COMPLETE CBC W/AUTO DIFF WBC Reviewed 10/31/2012 12:00 AM COMPREHEN METABOLIC PANEL Reviewed 10/31/2012 12:00 AM LIPID PANEL Reviewed 10/31/2012 12:00 AM ELECTROCARDIOGRAM COMPLETE Reviewed 11/03/2012 12:[address] THORAX W/O & W/DYE Reviewed 11/08/2012 12:00 AM N BLOCK INJ OCCIPITAL Reviewed 11/08/2012 12:00 AM Kenalog Lo-[address]-20 ANNA Reviewed 11/27/2012 12:00 AM COMPLETE CBC [...] Decadron, Per [address] [facility]# [address]-31 Reviewed 01/25/2013 12:00 AM Depo-Medrol, Per [address] [facility]#2352-6920-20 Reviewed 01/26/2013 12:00 AM IMMUNOTHERAPY ONE INJECTION [...] Decadron, Per [address] [facility]# [address]-56 Reviewed 05/16/2013 12:00 AM Depo-Medrol, Per [address] [facility]#6120-1725-01 Reviewed 05/31/2013 12:00 AM IMMUNOTHERAPY INJECTIONS Reviewed 06/08/2013 12:00 AM IMMUNOTHERAPY INJECTIONS Reviewed 06/14/2013 12:00 AM IMMUNOTHERAPY INJECTIONS Reviewed 06/28/2013 12:00 AM IMMUNOTHERAPY INJECTIONS Reviewed 07/12/2013 12:00 AM X-RAY EXAM RIBS UNI 2 VIEWS Reviewed 07/18/2013 12:00 AM Toradol [address] [facility]#7034-0072-60 Reviewed 07/18/2013 12:00 AM THER/PROPH/DIAG INJ SC/IM Reviewed 08/23/2013 12:00 AM COMPLETE CBC W/AUTO DIFF WBC Reviewed 08/23/2013 12:00 AM COMPREHEN METABOLIC PANEL Reviewed 08/23/2013 12:00 AM LIPID PANEL Reviewed 08/31/2013 12:00 AM X-RAY EXAM OF LOWER LEG Reviewed 09/04/2013 12:00 AM IMMUNOTHERAPY INJECTIONS Reviewed 09/14/2013 12:00 AM THER/PROPH/DIAG INJ SC/IM Reviewed 09/14/2013 12:00 AM Decadron, Per [address] [facility]# [address]-28 Reviewed 09/14/2013 12:00 AM Depo-Medrol, Per [address] [facility]#9337-2585-31 Reviewed 09/20/2013 12:00 AM IMMUNOTHERAPY INJECTIONS Reviewed [...] INJ OCCIPITAL Reviewed 12/10/2009 12:00 AM Quentin Xu-[address]-20 ANNA Reviewed 12/16/2009 12:00 AM HIV-1ANTIBODY Reviewed 12/16/2009 12:00 AM COMPLETE CBC W/AUTO DIFF WBC Reviewed 12/16/2009 12:00 AM METABOLIC PANEL TOTAL CA Reviewed 12/16/2009 12:00 AM Type and screen Reviewed 12/16/2009 12:00 AM PROTHROMBIN TIME Reviewed 12/16/2009 12:00 AM THROMBOPLASTIN TIME PARTIAL Reviewed 03/18/2010 12:00 AM DRAIN/INJ JOINT/BURSA W/O US Reviewed 03/18/2010 12:00 AM Quentin He-[address]-20 ANNA Reviewed 11/21/2013 12:00 AM RADEX HAND MINIMUM 3 VIEWS Reviewed 06/03/2010 12:00 AM INJ TRIGGER POINT 1/2 MUSCL Reviewed 06/03/2010 12:00 AM Kenalog per 10Mg Im-[facility]#[address]-55(Niall) Reviewed 12/05/2013 12:00 AM COMPLETE CBC W/AUTO [...] Reviewed 07/23/2010 12:00 AM Kenalog per 10Mg Im-Nd#[address]-64(Niall) Reviewed 2014 12:00 AM COMPLETE CBC W/AUTO [...] INJ OCCIPITAL Reviewed 10/01/2010 12:00 AM Kenalog Hn-[address]-20 ANNA Reviewed 07/25/2014 12:00 AM THER/PROPH/DIAG INJ [...] Quant,IgM <0.80 RMSF , IgG, EIA Negative [facility] Spotted [...] 141 Influenza 04/24/2014 sanofi pasteur PMC FLUZONE [id number] Intramuscular Left Upper Arm 02/27/2014 01/15/2014 141 Influenza 02/13/2015 sanofi pasteur PMC FLUZONE [id number] Intramuscular Left Deltoid 02/13/2015 01/03/2015 140 Tdap 06/06/2015 [employer] SKB BOOSTRIX [id number] Intramuscular Left Deltoid 06/06/2015 07/23/2014 115 Influenza 03/18/2016 sanofi pasteur PMC FLUZONE [id number] Intramuscular Left Deltoid 03/17/2016 01/03/2015 141 History [...] spinal stenosis b 2016 3:50PM Lumbago b 10 2016 3:25PM [...] mellitus with hyperglycemia 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 Jun 24 2017 [...] on right side Sep 06 2017 10:50AM Payers Insurance Name Company Name Plan Name Plan Number Policy Number Policy Group Number Start Date Medicare RHC Medicare RHC [id number] N/A [facility] - RHC - Community Plan of [facility] RHC Comm [id number] N/A Medicare Part A Medicare - Lab/Xray [id number] N/A Medicare Part B Medicare Of [place] [id number] Monday, February 28, 2000 [place] [employer] [place] [id number] Tuesday, November 10, 2009 Medicare Part A Medicare Part A [id number] N/A [place] [employer] - RHC [place] [employer] - RHC [id number] [facility] Comm Plan of [id number] Wednesday, May 30, 2012 History of Encounters Visit Date Visit Type Provider 09/06/2017 Office visit Kaylynn Mendez INVENTORY SPECIALIST MANAGER 08/15/2017 Office visit Heena Dumont MD 07/18/2017 Office visit Heena Dumont MD 06/28/2017 Office visit 06/28/2017 Office visit Lena El INVENTORY SPECIALIST MANAGER 06/24/2017 Office visit Sundeep Russell INVENTORY SPECIALIST MANAGER 06/02/2017 Office visit Heena Dumont MD 04/20/2017 Office visit 04/20/2017 Office visit 04/20/2017 Office visit 04/20/2017 Office visit Heena Dumont MD 03/22/2017 Office visit Heena Dumont MD 03/05/2017 Office visit Lena Chaves INVENTORY SPECIALIST MANAGER 02/23/2017 Office visit Symone Marie INVENTORY SPECIALIST MANAGER 02/21/2017 Office visit Heena Dumont MD 02/15/2017 Office visit Heena Dumont MD 02/02/2017 Office visit Heena Dumont MD 01/07/2017 Office visit Riccardo Cardoza MD 01/03/2017 Office visit Heena Dumont MD 12/15/2016 Office visit Kaylynn Mendez INVENTORY SPECIALIST MANAGER 12/02/2016 Office visit Heena Dumont MD 11/23/2016 [facility] Eliseo Hoskins MD 11/23/2016 Office visit Kaylynn Mendez INVENTORY SPECIALIST MANAGER 11/17/2016 Office visit Kaylynn Mendez INVENTORY SPECIALIST MANAGER 11/05/2016 Office visit Riccardo Cardoza MD 11/02/2016 Office visit Heena Dumont MD 10/06/2016 Office visit Kaylynn Mendez INVENTORY SPECIALIST MANAGER 09/22/2016 Office visit Heena Dumont MD 09/09/2016 Office visit Kaylynn Mendez INVENTORY SPECIALIST MANAGER 08/27/2016 Office visit Riccardo Cardoza MD 08/26/2016 Office visit Heena Dumont MD 07/09/2016 Office visit Riccardo Cardoza MD 07/06/2016 Office visit Heena Dumont MD 06/18/2016 Office visit Kaylynn Mendez INVENTORY SPECIALIST MANAGER 06/07/2016 Office visit Sundeep Russell INVENTORY SPECIALIST MANAGER 06/04/2016 Office visit Heena Dumont MD 05/13/2016 Office visit Heena Dumont MD 05/03/2016 Office visit Heena Dumont MD 04/26/2016 Office visit Kaylynn Menedz INVENTORY SPECIALIST MANAGER 04/14/2016 Office visit Heena Dumont MD 04/13/2016 Office visit Kaylynn Mendez INVENTORY SPECIALIST MANAGER 04/02/2016 Office visit Lena El INVENTORY SPECIALIST MANAGER 04/02/2016 Office visit Heena Dumont MD 03/26/2016 Office visit Yesica Falcon INVENTORY SPECIALIST MANAGER 03/17/2016 Office visit Heena Dumont MD 03/05/2016 Office visit Kaylynn Mendez INVENTORY SPECIALIST MANAGER 02/16/2016 Office visit Heena Dumont MD 02/14/2016 Office visit Na Jones INVENTORY SPECIALIST MANAGER 01/16/2016 Office visit Heena Dumont MD 12/16/2015 Office visit Heena Dumont MD 11/24/2015 Office visit Kaylynn Mendez INVENTORY SPECIALIST MANAGER 11/18/2015 Office visit Heena Dumont MD 11/03/2015 Office visit Sundeep Russell INVENTORY SPECIALIST MANAGER 10/20/2015 Office visit Kaylynn Mendez INVENTORY SPECIALIST MANAGER 09/23/2015 Office visit Kaylynn Mendez INVENTORY SPECIALIST MANAGER 09/16/[address] Pepe Figueroa MD 09/02/2015 Office visit Kaylynn Mendez INVENTORY SPECIALIST MANAGER 09/01/2015 Office visit Kaylynn Mendez INVENTORY SPECIALIST MANAGER 07/30/2015 Office visit Heena Dumont MD 07/15/2015 Office visit Kaylynn Mendez INVENTORY SPECIALIST MANAGER 07/04/2015 Office visit Heena Dumont MD 06/06/2015 Office visit Heena Dumont MD 06/06/2015 Office visit Kaylynn Walker INVENTORY SPECIALIST MANAGER 06/02/2015 Office visit Kaylynn Walker INVENTORY SPECIALIST MANAGER 05/26/2015 Office visit Kaylynn Walker INVENTORY SPECIALIST MANAGER 05/20/2015 Office visit Kaylynn Walker INVENTORY SPECIALIST MANAGER 05/08/2015 Office visit Heena Dumont MD 05/06/2015 Office visit Kaylynn Walker INVENTORY SPECIALIST MANAGER 04/29/2015 Office visit Kaylynn Walker INVENTORY SPECIALIST MANAGER 03/27/2015 Voided Brittni Yanez INVENTORY SPECIALIST MANAGER 03/21/2015 Office visit Heena Dumont MD 03/12/2015 Office visit Kaylynn Mendez INVENTORY SPECIALIST MANAGER 02/26/2015 Office visit Brittni Yanez INVENTORY SPECIALIST MANAGER 02/13/2015 Office visit Heena Dumont MD 01/15/2015 Office visit Brittni Yanez INVENTORY SPECIALIST MANAGER 01/13/2015 Office visit Heena Dumont MD 01/08/[address] Carol Fowler MD 01/01/2015 Office visit Brittni Yanez INVENTORY SPECIALIST MANAGER 12/13/2014 Office visit Heena Dumont MD 11/27/2014 Office visit Kaylynn Mendez INVENTORY SPECIALIST MANAGER 11/14/2014 Office visit Heena Dumont MD 10/18/2014 Office visit Heena Dumont MD 10/17/2014 [facility] John Hoskins MD 10/09/2014 Office visit Heena Dumont MD 09/25/2014 Office visit Heena Dumont MD 09/17/2014 Office visit Kaylynn Mendez INVENTORY SPECIALIST MANAGER 09/04/2014 Office visit Heena Dumont MD 08/28/2014 Office visit Kaylynn Mendez INVENTORY SPECIALIST MANAGER 08/23/2014 [facility] John Hoskins MD 08/01/2014 Office visit Kaylynn Mendez INVENTORY SPECIALIST MANAGER 07/29/2014 Office visit Heena Dumont MD 07/25/2014 Nurse visit Heena Dumont MD 07/17/2014 Office visit Kaylynn Mendez INVENTORY SPECIALIST MANAGER 07/11/2014 Office visit Heena Dumont MD 07/01/2014 Office visit Heena Dumont MD 06/25/2014 Office visit Kaylynn Mendez INVENTORY SPECIALIST MANAGER 06/12/2014 Office visit Kaylynn Mendez INVENTORY SPECIALIST MANAGER 06/06/2014 Office visit Kaylynn Mendez INVENTORY SPECIALIST MANAGER 05/27/2014 Office visit Heena Dumont MD 04/20/2014 Office visit Yesica Falcon INVENTORY SPECIALIST MANAGER 03/29/2014 Office visit Na Jones INVENTORY SPECIALIST MANAGER 03/15/2014 Office visit Heena Dumont MD 2014 Office visit Heena Dumont MD 2014 [facility] John Hoskins MD 02/27/2014 Nurse visit Heena Dumont MD 02/13/2014 Office visit Lena El INVENTORY SPECIALIST MANAGER 02/07/2014 Office visit Heena Dumont MD 02/03/2014 Office visit Na Jones INVENTORY SPECIALIST MANAGER 01/30/2014 Office visit Kaylynn Mendez INVENTORY SPECIALIST MANAGER 01/24/2014 Office visit Sundeep Russell INVENTORY SPECIALIST MANAGER 01/16/2014 Office visit Kaylynn Mendez INVENTORY SPECIALIST MANAGER 01/10/2014 Nurse visit Kaylynn Walker INVENTORY SPECIALIST MANAGER 01/08/2014 Office visit Kaylynn Mendez INVENTORY SPECIALIST MANAGER 12/05/2013 Office visit Kaylynn Walker INVENTORY SPECIALIST MANAGER 11/21/2013 Office visit Kaylynn Mendez INVENTORY SPECIALIST MANAGER 10/23/2013 Office visit Brittni Yanez INVENTORY SPECIALIST MANAGER 10/17/2013 Nurse visit Heena Dumont MD 10/12/2013 Office visit Kaylynn Mendez INVENTORY SPECIALIST MANAGER 10/02/2013 Office visit Heena Dumont MD 09/20/2013 Nurse visit Kaylynn Mendez INVENTORY SPECIALIST MANAGER 09/20/2013 Voided Heena Dumont MD 09/14/2013 Office visit Kaylynn Walker INVENTORY SPECIALIST MANAGER 09/05/2013 Office visit Sundeep Russell INVENTORY SPECIALIST MANAGER 09/04/2013 Nurse visit Kaylynn Mendez INVENTORY SPECIALIST MANAGER 08/31/2013 Office visit Kaylynn Mendez INVENTORY SPECIALIST MANAGER 08/23/2013 Office visit Heena Dumont MD 08/10/2013 Office visit Kaylynn Mendez INVENTORY SPECIALIST MANAGER 07/25/2013 Office visit Kaylynn Walker INVENTORY SPECIALIST MANAGER 07/18/2013 Office visit Kaylynn Walker INVENTORY SPECIALIST MANAGER 07/12/2013 Office visit Kaylynn Mendez INVENTORY SPECIALIST MANAGER 06/28/2013 Nurse visit Kaylynn Walker INVENTORY SPECIALIST MANAGER 06/14/2013 Nurse visit Kaylynn Walker INVENTORY SPECIALIST MANAGER 06/08/2013 Nurse visit Kaylynn Walker INVENTORY SPECIALIST MANAGER 05/31/2013 Nurse visit Chadd Norris DO 05/18/2013 Office visit Terese Davidson MD 05/16/2013 Office visit Kaylynn Mendez INVENTORY SPECIALIST MANAGER 05/09/2013 Office visit Kaylynn Mendez INVENTORY SPECIALIST MANAGER 04/29/2013 [facility] John Hoskins MD 04/25/2013 Nurse visit Kaylynn Walker INVENTORY SPECIALIST MANAGER 04/17/2013 Office visit Kaylynn Mendez INVENTORY SPECIALIST MANAGER 04/03/2013 Nurse visit Kaylynn Mendez INVENTORY SPECIALIST MANAGER 04/03/2013 Office visit Terese Davidson MD 03/28/2013 Office visit Sundeep Russell INVENTORY SPECIALIST MANAGER 03/21/2013 Office visit Kaylynn Mendez INVENTORY SPECIALIST MANAGER 03/20/2013 Office visit Terese Davidson MD 03/14/2013 Nurse visit Kaylynn Mendez INVENTORY SPECIALIST MANAGER 03/05/2013 Nurse visit Kaylynn Mendez INVENTORY SPECIALIST MANAGER 02/19/2013 Office visit Terese Davidson MD 02/16/2013 Nurse visit Kaylynn Andrea INVENTORY SPECIALIST MANAGER 02/09/2013 Office visit Sundeep Russell INVENTORY SPECIALIST MANAGER 02/08/2013 Nurse visit Kaylynn Andrea INVENTORY SPECIALIST MANAGER 02/01/2013 Nurse visit Kaylynn Andrea INVENTORY SPECIALIST MANAGER 01/26/2013 Nurse visit Sabrina Andrea TEACHER RESOURCE 01/25/2013 Office visit Kaylynn Andrea INVENTORY SPECIALIST MANAGER 01/22/2013 Office visit Yoan Castaneda MD 01/18/2013 Nurse visit Kaylynn Andrea INVENTORY SPECIALIST MANAGER 01/11/2013 Nurse visit Kaylynn Walker INVENTORY SPECIALIST MANAGER 01/05/2013 Nurse visit Kaylynn Andrea INVENTORY SPECIALIST MANAGER 12/29/2012 Office visit Kaylynn Andrea INVENTORY SPECIALIST MANAGER 11/27/2012 Office visit Kaylynn Andrea INVENTORY SPECIALIST MANAGER 11/08/2012 Office visit Odell Tierney MD 11/08/2012 Voided Odell Tierney MD 11/07/2012 Office visit Kaylynn Mendez INVENTORY SPECIALIST MANAGER 10/31/2012 [facility] John Hoskins MD 10/31/2012 Office visit Kaylynn Mendez INVENTORY SPECIALIST MANAGER 10/19/2012 Office visit Genoveva Ayala INVENTORY SPECIALIST MANAGER 10/10/2012 Office visit Kaylynn Mendez INVENTORY SPECIALIST MANAGER 10/03/2012 Office visit Kaylynn Mendez INVENTORY SPECIALIST MANAGER 09/26/2012 Office visit Kaylynn Mendez INVENTORY SPECIALIST MANAGER 09/06/2012 Office visit Kaylynn Mendez INVENTORY SPECIALIST MANAGER 09/06/2012 Office visit Odell Tierney MD 08/31/2012 Voided Kaylynn Mendez INVENTORY SPECIALIST MANAGER 07/28/2012 Office visit Kaylynn Mendez INVENTORY SPECIALIST MANAGER 07/27/2012 Office visit David Joyner DO 07/20/2012 [facility] David Joyner DO 07/13/2012 [facility] David Joyner DO 07/11/2012 Office visit Kaylynn Mendez INVENTORY SPECIALIST MANAGER 06/27/2012 [facility] Odell Tierney MD 06/21/2012 Office visit David Joyner DO 06/21/2012 Office visit Odell Tierney MD 06/20/2012 Office visit Brittni Yanez INVENTORY SPECIALIST MANAGER 06/06/2012 Office visit Odell Tierney MD 05/03/2012 Office visit Kaylynn Mendez INVENTORY SPECIALIST MANAGER 04/28/2012 Office visit Brittni Yanez INVENTORY SPECIALIST MANAGER 04/11/2012 Office visit Kaylynn Mendez INVENTORY SPECIALIST MANAGER 04/06/2012 [facility] John Hoskins MD 03/30/2012 Office visit Kaylynn Mendez INVENTORY SPECIALIST MANAGER 03/15/2012 Office visit Kaylynn Mendez INVENTORY SPECIALIST MANAGER 03/15/2012 Office visit Odell Tierney MD 02/09/2012 Office visit Kaylynn Mendez INVENTORY SPECIALIST MANAGER 12/23/2011 Office visit Kaylynn Mendez INVENTORY SPECIALIST MANAGER 11/02/2011 Office visit Kaylynn Walker INVENTORY SPECIALIST MANAGER 10/14/2011 Office visit Kaylynn Mendez INVENTORY SPECIALIST MANAGER 09/27/2011 Office visit Kaylynn Mendez INVENTORY SPECIALIST MANAGER 08/19/2011 [facility] Hoskins MD 08/18/2011 [facility] John Hoskins MD 08/18/2011 Office visit Kaylynn Mendez INVENTORY SPECIALIST MANAGER 08/02/2011 Office visit Kaylynn Mendez INVENTORY SPECIALIST MANAGER 07/08/2011 Office visit Kaylynn Mendez INVENTORY SPECIALIST MANAGER 07/05/2011 Office visit Odell Tierney MD 06/15/2011 Office visit Kaylynn Mendez INVENTORY SPECIALIST MANAGER 05/14/2011 Office visit Kaylynn Mendez INVENTORY SPECIALIST MANAGER 05/11/2011 Office visit Odell Tierney MD 04/28/2011 Office visit Kaylynn Andrea INVENTORY SPECIALIST MANAGER 03/02/2011 Office visit Chadd Norris DO [...]
--- OUTSIDE RECORDS SUMMARY | 2018-05-10 06:49 | XMS REPORT ---
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 Lancets 33 gauge miscellaneous misc 01/21/2016 use as directed [employer]ios miscellaneous strip 01/21/2016 07/19/2016 Test 2x daily, [...] 08/27/2014 use as directed for 99 days [place] 5-325 mg oral tablet 06/17/2014 06/27/2014 take [...] a day as needed for 30 days jybqftlp-oqaowrdko-WD 3.5-10,000-1 mg/mL-unit/mL-% otic drops,suspension 201401/08/2015 instill 4 [...] Decadron 1 mg [facility]#24010574654 (Jr) Reviewed 04/28/2011 12:00 AM Depo-Medrol 80 mg ND#[id number]-Xyjkpcvi Reviewed 09/02/2015 12:00 AM Toradol 60 Mg [facility]#9174-5301-80 Reviewed 09/02/2015 12:00 AM Phenergan, Up to 50 Mg [facility] Medicaid Reviewed 09/16/2015 12:00 AM Toradol 60 Mg ND#9590-8025-89 Reviewed 09/16/2015 12:00 AM Phenergan Up to 50 mg [facility] Medicare Reviewed 05/11/2011 12:00 AM N BLOCK INJ OCCIPITAL Reviewed 05/11/2011 12:00 AM Kenalog Ox-[address]-20 ANNA Reviewed 11/13/2015 12:00 AM ASSAY OF [...] INJ SC/IM Reviewed 07/08/2011 12:00 AM Toradol,15mg ND#[id number], [place] Reviewed 07/08/2011 12:00 AM Phenergan 50 Mg Im [facility] 7112-9644-48 [facility] Reviewed 01/21/2016 12:00 AM ECG MONIT/REPRT UP TO 48 HRS Returned 08/02/2011 12:00 AM THER/PROPH/DIAG INJ SC/IM Reviewed 08/02/2011 12:00 AM Decadron 1 mg NDC#[id number] (Jr) Reviewed 08/02/2011 12:00 AM Depo-Medrol 80 mg ND#[id number]-Ytpbppsd Reviewed 03/05/2016 12:00 AM COMPLETE CBC W/AUTO DIFF WBC Returned 03/05/2016 12:00 AM STREP A ASSAY W/OPTIC Returned 03/05/2016 12:00 AM C-REACTIVE PROTEIN Returned 03/18/2016 12:00 AM [facility] MEDICARE - flu vaccine administration Reviewed 03/18/2016 12:00 AM INFLUENZA VACCINE QUADRIVALENT 3 YRS PLUS IM Reviewed 09/27/2011 12:00 AM THER/PROPH/DIAG INJ SC/IM Reviewed 09/27/2011 12:00 AM Depo-Medrol 80 mg NDC#[id number]-Bdnkcrcj Reviewed 10/14/2011 12:00 AM X-RAY EXAM OF ABDOMEN Returned 10/14/2011 12:00 AM URINALYSIS AUTO W/O SCOPE Reviewed 12/23/2011 12:00 AM THER/PROPH/DIAG INJ SC/IM Reviewed 12/23/2011 12:00 AM Decadron 1 mg NDC#[id number] (Jr) Reviewed 12/23/2011 12:00 AM Depo-Medrol 80 mg NDC#[id number]-Ezxkoyin Reviewed 02/09/2012 12:00 AM THER/PROPH/DIAG INJ SC/IM Reviewed 02/09/2012 12:00 AM Decadron 1 mg NDC#20291659933 (Jr) Reviewed 02/09/2012 12:00 AM Depo-Medrol 80 mg NDC#[id number]-Ccbtdxqc Reviewed 03/15/2012 12:00 AM N BLOCK INJ OCCIPITAL Reviewed 03/15/2012 12:00 AM Kenalog Fk-[address]-20 ANNA Reviewed 04/11/2012 12:00 AM COMPLETE CBC W/AUTO DIFF WBC Returned 04/11/2012 12:00 AM COMPREHEN METABOLIC PANEL Returned 04/11/2012 12:00 AM LIPID PANEL Returned 04/11/2012 12:00 AM ASSAY THYROID STIM HORMONE Returned 06/20/2012 12:00 AM THER/PROPH/DIAG INJ SC/IM Reviewed 06/20/2012 12:00 AM Decadron, Per 1 Mg [facility]# [address]-50 Reviewed 06/20/2012 12:00 AM Depo-Medrol, Per 80 Mg ND#9964-2004-18 Reviewed 09/06/2012 12:00 AM N BLOCK INJ OCCIPITAL Reviewed 09/06/2012 12:00 AM Kenalog Hz-[address]-20 ANNA Reviewed 09/06/2012 12:00 AM X-RAY EXAM RIBS UNI 2 VIEWS Returned 09/26/2012 12:00 AM THER/PROPH/DIAG INJ SC/IM Reviewed 09/26/2012 12:00 AM Decadron, Per 1 Mg [facility]# [address]-28 Reviewed 09/26/2012 12:00 AM Depo-Medrol, Per 80 Mg [facility]#1034-6373-28 Reviewed 10/03/2012 12:00 AM URINALYSIS AUTO W/O SCOPE Reviewed 10/03/2012 12:00 AM THER/PROPH/DIAG INJ SC/IM Reviewed 10/03/2012 12:00 AM Toradol 60 Mg [facility]#6297-1594-54 Reviewed 10/03/2012 12:00 AM Phenergan, 25Mg [facility]#5407-2789-21 Reviewed 10/19/2012 12:00 AM N BLOCK INJ OCCIPITAL Reviewed 10/19/2012 12:00 AM Kenalog, Per 10 Mg [facility]#2453-5406-02 Reviewed 10/19/2012 12:00 AM Toradol 30 Mg [facility]#4768-0911-98 Reviewed 10/19/2012 12:00 AM THER/PROPH/DIAG INJ SC/IM Reviewed 10/31/2012 12:00 AM COMPLETE CBC W/AUTO DIFF WBC Returned 10/31/2012 12:00 AM COMPREHEN METABOLIC PANEL Returned 10/31/2012 12:00 AM LIPID PANEL Returned 11/03/2012 12:[address] THORAX W/O & W/DYE Returned 11/08/2012 12:00 AM N BLOCK INJ OCCIPITAL Reviewed 11/08/2012 12:00 AM Kenalog Tm-82745-1998-20 ANNA Reviewed 11/27/2012 12:00 AM COMPLETE CBC [...] 1 Mg [facility]# [address]-64 Reviewed 01/25/2013 12:00 AM Depo-Medrol, Per 80 Mg [facility]#1170-6468-60 Reviewed 01/26/2013 12:00 AM IMMUNOTHERAPY INJECTIONS Returned [...] 1 Mg [facility]# [address]-97 Reviewed 05/16/2013 12:00 AM Depo-Medrol, Per 80 Mg [facility]#9684-0529-18 Reviewed 05/31/2013 12:00 AM IMMUNOTHERAPY INJECTIONS Reviewed 06/08/2013 12:00 AM IMMUNOTHERAPY INJECTIONS Reviewed 06/14/2013 12:00 AM IMMUNOTHERAPY INJECTIONS Reviewed 06/28/2013 12:00 AM IMMUNOTHERAPY INJECTIONS Reviewed 07/12/2013 12:00 AM X-RAY EXAM RIBS UNI 2 VIEWS Returned 07/18/2013 12:00 AM Toradol 60 Mg [facility]#1973-1570-45 Reviewed 07/18/2013 12:00 AM THER/PROPH/DIAG INJ SC/IM [...] 1 Mg [facility]# [address]-40 Reviewed 09/14/2013 12:00 AM Depo-Medrol, Per 80 Mg [facility]#3411-0922-68 Reviewed 09/20/2013 12:00 AM IMMUNOTHERAPY INJECTIONS Reviewed [...] INJ OCCIPITAL Reviewed 12/10/2009 12:00 AM Kenalog Pk-[address]-20 ANNA Reviewed 12/16/2009 12:00 AM HIV-1ANTIBODY Reviewed 12/16/2009 12:00 AM COMPLETE CBC W/AUTO DIFF WBC Reviewed 12/16/2009 12:00 AM METABOLIC PANEL TOTAL CA Reviewed 12/16/2009 12:00 AM Type and screen Reviewed 12/16/2009 12:00 AM PROTHROMBIN TIME Reviewed 12/16/2009 12:00 AM THROMBOPLASTIN TIME PARTIAL Reviewed 03/18/2010 12:00 AM DRAIN/INJ JOINT/BURSA W/O US Reviewed 03/18/2010 12:00 AM Kenalog Ad-[address]-20 ANNA Reviewed 11/21/2013 12:00 AM RADEX HAND MINIMUM 3 VIEWS Returned 06/03/2010 12:00 AM INJ TRIGGER POINT 1/2 MUSCL Reviewed 06/03/2010 12:00 AM Kenalog per 10Mg Im-Ndc#[address]-08(Niall) Reviewed 12/05/2013 12:00 AM COMPLETE CBC W/AUTO [...] Reviewed 07/23/2010 12:00 AM Kenalog per 10Mg Im-Ndc#[address]-02(Niall) Reviewed 2014 12:00 AM COMPLETE CBC W/AUTO [...] INJ OCCIPITAL Reviewed 10/01/2010 12:00 AM Kenalog Tr-[address]-20 ANNA Reviewed 07/25/2014 12:00 AM THER/PROPH/DIAG INJ [...] 0.60 mg/dLCALCIUM 10.90 mg/ dLeGFR >60 mL/min/1.73 [id number] 45.0 U/L 08/31/2013 10:54 AM GLUCOSE 255.0 [...] 0.40 mg/ dLCALCIUM 10.60 mg/dLeGFR >60 mL/min/1.73 [id number] 369.0 mg/ dLCHOLESTEROL 153.0 mg/dLHDL 26.0 mg/dLLDL [...] BILI 0.30 mg/dLCALCIUM 10.0 mg/dLeGFR >60 mL/min/1.73 [id number] YELLOW APPEARANCE CLEAR SPEC GRAV 1.010 pH 5.5 PROTEIN NEGATIVE GLUCOSE NEGATIVE KETONE NEGATIVE BILIRUBIN NEGATIVE BLOOD NEGATIVE NITRITE NEGATIVE [place]UK SCREEN NEGATIVE HGB A1C 6.30 %Est Avg Glucose 134.1 mg/dLMICROALBUMIN UR <0.5 MG/DL 02/13/2015 4:38 PM RMSF, IgG, EIA Negative [facility] Spotted Fever,IgM 0.51 E. chaffeensis [...] 141 Influenza 04/24/2014 sanofi pasteur PMC Fluzone [id number] Intramuscular Left Upper Arm 02/27/2014 01/15/2014 141 Influenza 02/13/2015 sanofi pasteur PMC Fluzone [id number] Intramuscular Left Deltoid 02/13/2015 01/03/2015 140 Tdap 06/06/2015 [employer] SKB BOOSTRIX [id number] Intramuscular Left Deltoid 06/06/2015 07/23/2014 115 Influenza 03/18/2016 sanofi pasteur PMC Fluzone [id number] Intramuscular Left Deltoid 03/17/2016 01/03/2015 141 History [...] and colitis, viral Mar 26 2016 5:25PM Payers Insurance Name Company Name Plan Name Plan Number Policy Number Policy Group Number Start Date Medicare Part A Medicare [facility] [id number] N/A [facility] [id number] N/A Medicare Part A Medicare - Lab/Xray [id number] N/A Medicare Part B Medicare Of [place] [id number] Monday, February 28, 2000 [place] [employer] [place] [employer] [place] [id number] Tuesday, November 10, 2009 Medicare Part A Medicare Part A [id number] N/A [place] [employer] [facility] [id number] [facility] Comm Plan of [id number] Wednesday, May 30, 2012 History of Encounters Visit Date Visit Type Provider 03/26/2016 Office visit Yesica Falcon SAMPLE DISPLAY PREPARER 03/17/2016 Office visit Heena Dumont MD 03/05/2016 Office visit Kaylynn Mendez SAMPLE DISPLAY PREPARER 02/16/2016 Office visit Heena Dumont MD 02/14/2016 Office visit Na Jones SAMPLE DISPLAY PREPARER 01/16/2016 Office visit Heena Dumont MD 12/16/2015 Office visit Heena Dumont MD 11/24/2015 Office visit Kaylynn Mendez SAMPLE DISPLAY PREPARER 11/18/2015 Office visit Heena Dumont MD 11/03/2015 Office visit Sundeep Russell SAMPLE DISPLAY PREPARER 10/20/2015 Office visit Kaylynn Mendez SAMPLE DISPLAY PREPARER 09/23/2015 Office visit Kaylynn Mendez SAMPLE DISPLAY PREPARER 09/16/[address] Pepe Figueroa MD 09/02/2015 Office visit Kaylynn Mendez SAMPLE DISPLAY PREPARER 09/01/2015 Office visit Kaylynn Mendez SAMPLE DISPLAY PREPARER 07/30/2015 Office visit Heena Dumont MD 07/15/2015 Office visit Kaylynn Mendez SAMPLE DISPLAY PREPARER 07/04/2015 Office visit Heena Dumont MD 06/06/2015 Office visit Heena Dumont MD 06/06/2015 Office visit Kaylynn Mendez SAMPLE DISPLAY PREPARER 06/02/2015 Office visit Kaylynn Mendez SAMPLE DISPLAY PREPARER 05/26/2015 Office visit Kaylynn Mendez SAMPLE DISPLAY PREPARER 05/20/2015 Office visit Kaylynn Mendez SAMPLE DISPLAY PREPARER 05/08/2015 Office visit Heena Dumont MD 05/06/2015 Office visit Kaylynn Mendez SAMPLE DISPLAY PREPARER 04/29/2015 Office visit Kaylynn Mendez SAMPLE DISPLAY PREPARER 03/27/2015 Voided Brittni Yanez SAMPLE DISPLAY PREPARER 03/21/2015 Office visit Heena Dumont MD 03/12/2015 Office visit Kaylynn Mendez SAMPLE DISPLAY PREPARER 02/26/2015 Office visit Brittni Yanez SAMPLE DISPLAY PREPARER 02/13/2015 Office visit Heena Dumont MD 01/15/2015 Office visit Brittni Yanez SAMPLE DISPLAY PREPARER 01/13/2015 Office visit Heena Dumont MD 01/08/[address] Carol Fowler MD 01/01/2015 Office visit Brittni Yanez SAMPLE DISPLAY PREPARER 12/13/2014 Office visit Heena Dumont MD 11/27/2014 Office visit Kaylynn Mendez SAMPLE DISPLAY PREPARER 11/14/2014 Office visit Heena Dumont MD 10/18/2014 Office visit Heena Dumont MD 10/17/2014 [facility] John Hoskins MD 10/09/2014 Office visit Heena Dumont MD 09/25/2014 Office visit Heena Dumont MD 09/17/2014 Office visit Kaylynn Mendez SAMPLE DISPLAY PREPARER 09/04/2014 Office visit Heena Dumont MD 08/28/2014 Office visit Kaylynn Mendez SAMPLE DISPLAY PREPARER 08/23/2014 [facility] John Hoskins MD 08/01/2014 Office visit Kaylynn Mendez SAMPLE DISPLAY PREPARER 07/29/2014 Office visit Heena Dumont MD 07/25/2014 Nurse visit Heena Dumont MD 07/17/2014 Office visit Kaylynn Mendez SAMPLE DISPLAY PREPARER 07/11/2014 Office visit Heena Dumont MD 07/01/2014 Office visit Heena Dumont MD 06/25/2014 Office visit Kaylynn Mendez SAMPLE DISPLAY PREPARER 06/12/2014 Office visit Kaylynn nAdrea SAMPLE DISPLAY PREPARER 06/06/2014 Office visit Kaylynn Mendez SAMPLE DISPLAY PREPARER 05/27/2014 Office visit Heena Dumont MD 04/20/2014 Office visit Yesica Falcon SAMPLE DISPLAY PREPARER 03/29/2014 Office visit Na Jones SAMPLE DISPLAY PREPARER 03/15/2014 Office visit Heena Dumont MD 2014 Office visit Heena Dumont MD 2014 [facility] John Hoskins MD 02/27/2014 Nurse visit Heena Dumont MD 02/13/2014 Office visit Lena El SAMPLE DISPLAY PREPARER 02/07/2014 Office visit Heena Dumont MD 02/03/2014 Office visit Na Jones SAMPLE DISPLAY PREPARER 01/30/2014 Office visit Kaylynn Mendez SAMPLE DISPLAY PREPARER 01/24/2014 Office visit Sundeep Russell SAMPLE DISPLAY PREPARER 01/16/2014 Office visit Kaylynn Mendez SAMPLE DISPLAY PREPARER 01/10/2014 Nurse visit Kaylynn Mendez SAMPLE DISPLAY PREPARER 01/08/2014 Office visit Kaylynn Mendez SAMPLE DISPLAY PREPARER 12/05/2013 Office visit Kaylynn Mendez SAMPLE DISPLAY PREPARER 11/21/2013 Office visit Kaylynn Mendez SAMPLE DISPLAY PREPARER 10/23/2013 Office visit Brittni Yanez SAMPLE DISPLAY PREPARER 10/17/2013 Nurse visit Heena Dumont MD 10/12/2013 Office visit Kaylynn Mendez SAMPLE DISPLAY PREPARER 10/02/2013 Office visit Heena Dumont MD 09/20/2013 Nurse visit Kaylynn Mendez SAMPLE DISPLAY PREPARER 09/20/2013 Voided Heena Dumont MD 09/14/2013 Office visit Kaylynn Walker SAMPLE DISPLAY PREPARER 09/05/2013 Office visit Sundeep Russell SAMPLE DISPLAY PREPARER 09/04/2013 Nurse visit Kaylynn Mendez SAMPLE DISPLAY PREPARER 08/31/2013 Office visit Kaylynn Mendez SAMPLE DISPLAY PREPARER 08/23/2013 Office visit Heena Dumont MD 08/10/2013 Office visit Kaylynn Mendez SAMPLE DISPLAY PREPARER 07/25/2013 Office visit Kaylynn Mendez SAMPLE DISPLAY PREPARER 07/18/2013 Office visit Kaylynn Walker SAMPLE DISPLAY PREPARER 07/12/2013 Office visit Kaylynn Walker SAMPLE DISPLAY PREPARER 06/28/2013 Nurse visit Kaylynn Walker SAMPLE DISPLAY PREPARER 06/14/2013 Nurse visit Kaylynn Walker SAMPLE DISPLAY PREPARER 06/08/2013 Nurse visit Kaylynn Walker SAMPLE DISPLAY PREPARER 05/31/2013 Nurse visit Chadd Jr PAGAN 05/18/2013 Office visit Terese Davidson MD 05/16/2013 Office visit Kaylynn Walker SAMPLE DISPLAY PREPARER 05/09/2013 Office visit Kaylynn Walker SAMPLE DISPLAY PREPARER 04/29/2013 [facility] John Hoskins MD 04/25/2013 Nurse visit Kaylynn Walker SAMPLE DISPLAY PREPARER 04/17/2013 Office visit Kaylynn Walker SAMPLE DISPLAY PREPARER 04/03/2013 Nurse visit Kaylynn Walker SAMPLE DISPLAY PREPARER 04/03/2013 Office visit Terese Davidson MD 03/28/2013 Office visit Sundeep Russell SAMPLE DISPLAY PREPARER 03/21/2013 Office visit Kaylynn Walker SAMPLE DISPLAY PREPARER 03/20/2013 Office visit Terese Davidson MD 03/14/2013 Nurse visit Kaylynn Walker SAMPLE DISPLAY PREPARER 03/05/2013 Nurse visit Kaylynn Walker SAMPLE DISPLAY PREPARER 02/19/2013 Office visit Terese Davidson MD 02/16/2013 Nurse visit Kaylynn Walker SAMPLE DISPLAY PREPARER 02/09/2013 Office visit Sundeep Russell SAMPLE DISPLAY PREPARER 02/08/2013 Nurse visit Kaylynn Walker SAMPLE DISPLAY PREPARER 02/01/2013 Nurse visit Kaylynn Walker SAMPLE DISPLAY PREPARER 01/26/2013 Nurse visit Sabrina Mendez JAVA SCALA DEVELOPER 01/25/2013 Office visit Kaylynn Walker SAMPLE DISPLAY PREPARER 01/22/2013 Office visit Yoan Castaneda MD 01/18/2013 Nurse visit Kaylynn Walker SAMPLE DISPLAY PREPARER 01/11/2013 Nurse visit Kaylynn Walker SAMPLE DISPLAY PREPARER 01/05/2013 Nurse visit Kaylynn Walker SAMPLE DISPLAY PREPARER 12/29/2012 Office visit Kaylynn Walker SAMPLE DISPLAY PREPARER 11/27/2012 Office visit Kaylynn Mendez SAMPLE DISPLAY PREPARER 11/08/2012 Office visit Odell Tierney MD 11/08/2012 Voided Odell Tierney MD 11/07/2012 Office visit Kaylynn Mendez SAMPLE DISPLAY PREPARER 10/31/2012 [facility] John Hoskins MD 10/31/2012 Office visit Kaylynn Walker SAMPLE DISPLAY PREPARER 10/19/2012 Office visit Genoveva Ayala SAMPLE DISPLAY PREPARER 10/10/2012 Office visit Kaylynn Walker SAMPLE DISPLAY PREPARER 10/03/2012 Office visit Kaylynn Walker SAMPLE DISPLAY PREPARER 09/26/2012 Office visit Kaylynn Walker SAMPLE DISPLAY PREPARER 09/06/2012 Office visit Kaylynn Walker SAMPLE DISPLAY PREPARER 09/06/2012 Office visit Odell Tierney MD 08/31/2012 Voided Kaylynn Mendez SAMPLE DISPLAY PREPARER 07/28/2012 Office visit Kaylynn Andrea SAMPLE DISPLAY PREPARER 07/27/2012 Office visit David Ar DO 07/20/2012 Hospital David Joyner DO 07/13/2012 Hospital David Sherifftom DO 07/11/2012 Office visit Kaylynn Andrea SAMPLE DISPLAY PREPARER 06/27/2012 [facility] Odell Tierney MD 06/21/2012 Office visit David Joyner DO 06/21/2012 Office visit Odell Tierney MD 06/20/2012 Office visit Brittni Yanez SAMPLE DISPLAY PREPARER 06/06/2012 Office visit Odell Tierney MD 05/03/2012 Office visit Kaylynn Mendez SAMPLE DISPLAY PREPARER 04/28/2012 Office visit Brittni Yanez SAMPLE DISPLAY PREPARER 04/11/2012 Office visit Kaylynn Mendez SAMPLE DISPLAY PREPARER 04/06/2012 Hospital John Hoskins MD 03/30/2012 Office visit Kaylynn Mendez SAMPLE DISPLAY PREPARER 03/15/2012 Office visit Kaylynn Mendez SAMPLE DISPLAY PREPARER 03/15/2012 Office visit Odell Tierney MD 02/09/2012 Office visit Kaylynn Mendez SAMPLE DISPLAY PREPARER 12/23/2011 Office visit Kaylynn Mendez SAMPLE DISPLAY PREPARER 11/02/2011 Office visit Kaylynn Mendez SAMPLE DISPLAY PREPARER 10/14/2011 Office visit Kaylynn Mendez SAMPLE DISPLAY PREPARER 09/27/2011 Office visit Kaylynn Mendez SAMPLE DISPLAY PREPARER 08/19/2011 Hospital John Hoskins MD 08/18/2011 Hospital John Hoskins MD 08/18/2011 Office visit Kaylynn Mendez SAMPLE DISPLAY PREPARER 08/02/2011 Office visit Kaylynn Mendez SAMPLE DISPLAY PREPARER 07/08/2011 Office visit Kaylynn Mendez SAMPLE DISPLAY PREPARER 07/05/2011 Office visit Odell Tierney MD 06/15/2011 Office visit Kaylynn Mendez SAMPLE DISPLAY PREPARER 05/14/2011 Office visit Kaylynn Mnedez SAMPLE DISPLAY PREPARER 05/11/2011 Office visit Odell Tierney MD 04/28/2011 Office visit Kaylynn Mendez SAMPLE DISPLAY PREPARER 03/02/2011 Office visit Chadd Norris DO 02/17/2011 [...]
--- OUTSIDE RECORDS SUMMARY | 2018-05-10 07:00 | XMS REPORT ---
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 Name Role Phone Kaylynn Mendez PCP [...] oral route every 4 hours as needed Name Start Date Expiration [...] a day as needed for 30 days bokaurdc-gohuagocn-JZ 3.5-10,000-1 mg/mL-unit/mL-% otic drops,suspension 201401/08/2015 instill 4 [...] 30 days per kaylynn crouch lidocaine 5 %(700 mg/patch) topical adhesive patch,medicated [...] HC BMI BSA BMI Percentile O2 Sat(%) 05/06/2015 11:20:00 AM 124 mmHg 72 mmHg [...] Reviewed 04/28/2011 12:00 AM Decadron 1 mg [facility]#[id number] (Jr) Reviewed 04/28/2011 12:00 AM Depo-Medrol 80 mg ND#[id number]-Ueftbmtp Reviewed 05/11/2011 12:00 AM N BLOCK INJ OCCIPITAL Reviewed 05/11/2011 12:00 AM Kenalog Ov-[address]-20 ANNA Reviewed 06/15/2011 12:00 AM COMPLETE CBC W/AUTO DIFF WBC Returned 06/15/2011 12:00 AM COMPREHEN METABOLIC PANEL Returned 07/08/2011 12:00 AM THER/PROPH/DIAG INJ SC/IM Reviewed 07/08/2011 12:00 AM Toradol,15mg ND#[id number], [place] Reviewed 07/08/2011 12:00 AM Phenergan 50 Mg Im Nd 3483-6415-08 [facility] Reviewed 08/02/2011 12:00 AM THER/PROPH/DIAG INJ SC/IM Reviewed 08/02/2011 12:00 AM Decadron 1 mg ND#[id number] (Jr) Reviewed 08/02/2011 12:00 AM Depo-Medrol 80 mg NDC#[id number]-Vqqmkehj Reviewed 09/27/2011 12:00 AM THER/PROPH/DIAG INJ SC/IM Reviewed 09/27/2011 12:00 AM Depo-Medrol 80 mg NDC#[id number]-Ityjqshj Reviewed 10/14/2011 12:00 AM X-RAY EXAM OF ABDOMEN Returned 10/14/2011 12:00 AM URINALYSIS AUTO W/O SCOPE Reviewed 12/23/2011 12:00 AM THER/PROPH/DIAG INJ SC/IM Reviewed 12/23/2011 12:00 AM Decadron 1 mg NDC#[id number] (Jr) Reviewed 12/23/2011 12:00 AM Depo-Medrol 80 mg ND#[id number]-Vsegxsad Reviewed 02/09/2012 12:00 AM THER/PROPH/DIAG INJ SC/IM Reviewed 02/09/2012 12:00 AM Decadron 1 mg NDC#[id number] (Jr) Reviewed 02/09/2012 12:00 AM Depo-Medrol 80 mg NDC#[id number]-Zazbewgm Reviewed 03/15/2012 12:00 AM N BLOCK INJ OCCIPITAL Reviewed 03/15/2012 12:00 AM Kenalog Va-[address]-20 ANNA Reviewed 04/11/2012 12:00 AM COMPLETE CBC W/AUTO DIFF WBC Returned 04/11/2012 12:00 AM COMPREHEN METABOLIC PANEL Returned 04/11/2012 12:00 AM LIPID PANEL Returned 04/11/2012 12:00 AM ASSAY THYROID STIM HORMONE Returned 06/20/2012 12:00 AM THER/PROPH/DIAG INJ SC/IM Reviewed 06/20/2012 12:00 AM Decadron, Per 1 Mg [facility]# [address]-91 Reviewed 06/20/2012 12:00 AM Depo-Medrol, Per 80 Mg [facility]#7737-3462-68 Reviewed 09/06/2012 12:00 AM N BLOCK INJ OCCIPITAL Reviewed 09/06/2012 12:00 AM Kenalog Iv-[address]-20 ANNA Reviewed 09/06/2012 12:00 AM X-RAY EXAM RIBS UNI 2 VIEWS Returned 09/26/2012 12:00 AM THER/PROPH/DIAG INJ SC/IM Reviewed 09/26/2012 12:00 AM Decadron, Per 1 Mg [facility]# [address]-49 Reviewed 09/26/2012 12:00 AM Depo-Medrol, Per 80 Mg [facility]#6749-8926-62 Reviewed 10/03/2012 12:00 AM URINALYSIS AUTO W/O SCOPE Reviewed 10/03/2012 12:00 AM THER/PROPH/DIAG INJ SC/IM Reviewed 10/03/2012 12:00 AM Toradol 60 Mg [facility]#0291-1476-32 Reviewed 10/03/2012 12:00 AM Phenergan, 25Mg [facility]#2722-[address]-39 Reviewed 10/19/2012 12:00 AM N BLOCK INJ OCCIPITAL Reviewed 10/19/2012 12:00 AM Kenalog, Per 10 Mg [facility]#2688-9486-55 Reviewed 10/19/2012 12:00 AM Toradol 30 Mg ND#8833-9560-13 Reviewed 10/19/2012 12:00 AM THER/PROPH/DIAG INJ SC/IM Reviewed 10/31/2012 12:00 AM COMPLETE CBC W/AUTO DIFF WBC Returned 10/31/2012 12:00 AM COMPREHEN METABOLIC PANEL Returned 10/31/2012 12:00 AM LIPID PANEL Returned 11/03/2012 12:[address] THORAX W/O & W/DYE Returned 11/08/2012 12:00 AM N BLOCK INJ OCCIPITAL Reviewed 11/08/2012 12:00 AM Kenalog Dw-[address]-20 ANNA Reviewed 11/27/2012 12:00 AM COMPLETE CBC [...] 12:00 AM Decadron, Per 1 Mg [facility]# [address]-97 Reviewed 01/25/2013 12:00 AM Depo-Medrol, Per 80 Mg [facility]#7325-3408-16 Reviewed 01/26/2013 12:00 AM IMMUNOTHERAPY INJECTIONS Returned [...] 12:00 AM Decadron, Per 1 Mg [facility]# [address]-12 Reviewed 05/16/2013 12:00 AM Depo-Medrol, Per 80 Mg [facility]#0977-3572-09 Reviewed 05/31/2013 12:00 AM IMMUNOTHERAPY INJECTIONS Reviewed 06/08/2013 12:00 AM IMMUNOTHERAPY INJECTIONS Reviewed 06/14/2013 12:00 AM IMMUNOTHERAPY INJECTIONS Reviewed 06/28/2013 12:00 AM IMMUNOTHERAPY INJECTIONS Reviewed 07/12/2013 12:00 AM X-RAY EXAM RIBS UNI 2 VIEWS Returned 07/18/2013 12:00 AM Toradol 60 Mg [facility]#9384-5250-43 Reviewed 07/18/2013 12:00 AM THER/PROPH/DIAG INJ SC/IM Reviewed 08/23/2013 12:00 AM COMPLETE CBC W/AUTO DIFF WBC Reviewed 08/23/2013 12:00 AM COMPREHEN METABOLIC PANEL Reviewed 08/23/2013 12:00 AM LIPID PANEL Reviewed 08/31/2013 12:00 AM X-RAY EXAM OF LOWER LEG Returned 09/04/2013 12:00 AM IMMUNOTHERAPY INJECTIONS Reviewed 09/14/2013 12:00 AM THER/PROPH/DIAG INJ SC/IM Reviewed 09/14/2013 12:00 AM Decadron, Per 1 Mg [facility]# [address]-09 Reviewed 09/14/2013 12:00 AM Depo-Medrol, Per 80 Mg [facility]#7805-0382-33 Reviewed 09/20/2013 12:00 AM IMMUNOTHERAPY INJECTIONS Reviewed [...] INJ OCCIPITAL Reviewed 12/10/2009 12:00 AM Quentin Cx-[address]-20 ANNA Reviewed 12/16/2009 12:00 AM HIV-1ANTIBODY Reviewed 12/16/2009 12:00 AM COMPLETE CBC W/AUTO DIFF WBC Reviewed 12/16/2009 12:00 AM METABOLIC PANEL TOTAL CA Reviewed 12/16/2009 12:00 AM Type and screen Reviewed 12/16/2009 12:00 AM PROTHROMBIN TIME Reviewed 12/16/2009 12:00 AM THROMBOPLASTIN TIME PARTIAL Reviewed 03/18/2010 12:00 AM DRAIN/INJ JOINT/BURSA W/O US Reviewed 03/18/2010 12:00 AM Quentin Yv-[address]-20 ANNA Reviewed 11/21/2013 12:00 AM RADEX HAND MINIMUM 3 VIEWS Returned 06/03/2010 12:00 AM INJ TRIGGER POINT 1/2 MUSCL Reviewed 06/03/2010 12:00 AM Kenalog per 10Mg Im-[facility]#[address]-14(Niall) Reviewed 12/05/2013 12:00 AM COMPLETE CBC W/AUTO [...] Kenalog per 10Mg Im-[facility]#[address]-18(Niall) Reviewed 2014 12:00 AM COMPLETE CBC W/AUTO [...] INJ OCCIPITAL Reviewed 10/01/2010 12:00 AM Kenalog Or-[address]-20 ANNA Reviewed 07/25/2014 12:00 AM THER/PROPH/DIAG INJ [...] 0.60 mg/dLCALCIUM 10.90 mg/ dLeGFR >60 mL/min/1.73 [id number] 45.0 U/L 08/31/2013 10:54 AM GLUCOSE 255.0 [...] 0.40 mg/ dLCALCIUM 10.60 mg/dLeGFR >60 mL/min/1.73 [id number] 369.0 mg/ dLCHOLESTEROL 153.0 mg/dLHDL 26.0 mg/dLLDL [...] BILI 0.30 mg/dLCALCIUM 10.0 mg/dLeGFR >60 mL/min/1.73 [id number] YELLOW APPEARANCE CLEAR SPEC GRAV 1.010 pH [...] 141 Influenza 04/24/2014 san[employer]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 PMC Fluzone [id number] Intramuscular Left Upper Arm 02/27/2014 01/15/2014 141 Influenza 02/13/2015 [employer] paste[employer] Fluzone [id number] Intramuscular Left Deltoid 02/13/2015 01/03/2015 140 History [...] 11:22AM Walking pneumonia May 06 2015 11:22AM Payers Insurance Name Company Name Plan Name Plan Number Policy Number Policy Group Number Start Date Medicare Part A Medicare Part A [id number] N/A [facility] Comm [id number] N/A [place] [employer] - R[employer] [place] [employer] Prog - RHC [id number] May [facility] [place] [facility] Plan of [id number] Wednesday, 2012 Medicare Part B Medicare Of [place] [id number] Monday, 2000 [place] [employer] [place] [employer]g [id number] Tuesday, 2009 History of Encounters Visit Date Visit Type Provider 05/06/2015 Office visit Kaylynn Mendez WELDER 2ND SHIFT 04/29/2015 Office visit Kaylynn Mendez WELDER 2ND SHIFT 03/27/2015 Voided Brittni Yanez WELDER 2ND SHIFT 03/21/2015 Office visit Heena Dumont MD 03/12/2015 Office visit Kaylynn Mendez WELDER 2ND SHIFT 02/26/2015 Office visit Brittni Yanez WELDER 2ND SHIFT 02/13/2015 Office visit Heena Dumont MD 01/15/2015 Office visit Brittni Yanez WELDER 2ND SHIFT 01/13/2015 Office visit Heena Dumont MD 01/08/[address] Carol Fowler MD 01/01/2015 Office visit Brittni Yanez WELDER 2ND SHIFT 12/13/2014 Office visit Heena Dumont MD 11/27/2014 Office visit Kaylynn Mendez WELDER 2ND SHIFT 11/14/2014 Office visit Heena Dumont MD 10/18/2014 Office visit Heena Dumont MD 10/17/2014 [facility] John Hoskins MD 10/09/2014 Office visit Heena Dumont MD 09/25/2014 Office visit Heena Dumont MD 09/17/2014 Office visit Kaylynn Mendez WELDER 2ND SHIFT 09/04/2014 Office visit Heena Dumont MD 08/28/2014 Office visit Kaylynn Mendez WELDER 2ND SHIFT 08/23/2014 [facility] John Hoskins MD 08/01/2014 Office visit Kaylynn Mendez WELDER 2ND SHIFT 07/29/2014 Office visit Heena Dumont MD 07/25/2014 Nurse visit Heena Dumont MD 07/17/2014 Office visit Kaylynn Mendez WELDER 2ND SHIFT 07/11/2014 Office visit Heena Dumont MD 07/01/2014 Office visit Heena Dumont MD 06/25/2014 Office visit Kaylynn Mendez WELDER 2ND SHIFT 06/12/2014 Office visit Kaylynn Mendez WELDER 2ND SHIFT 06/06/2014 Office visit Kaylynn Mendez WELDER 2ND SHIFT 05/27/2014 Office visit Heena Dumont MD 04/20/2014 Office visit Yesica Falcon WELDER 2ND SHIFT 03/29/2014 Office visit Na Jones WELDER 2ND SHIFT 03/15/2014 Office visit Heena Dumont MD 2014 Office visit Heena Dumont MD 2014 [facility] John Hoskins MD 02/27/2014 Nurse visit Heena Dumont MD 02/13/2014 Office visit Lena El WELDER 2ND SHIFT 02/07/2014 Office visit Heena Dumont MD 02/03/2014 Office visit Na Jones WELDER 2ND SHIFT 01/30/2014 Office visit Kaylynn Mendez WELDER 2ND SHIFT 01/24/2014 Office visit Sundeep Russell WELDER 2ND SHIFT 01/16/2014 Office visit Kaylynn Walker WELDER 2ND SHIFT 01/10/2014 Nurse visit Kaylynn Mendez WELDER 2ND SHIFT 01/08/2014 Office visit Kaylynn Mendez WELDER 2ND SHIFT 12/05/2013 Office visit Kaylynn Walker WELDER 2ND SHIFT 11/21/2013 Office visit Kaylynn Walker WELDER 2ND SHIFT 10/23/2013 Office visit Brittni Yanez WELDER 2ND SHIFT 10/17/2013 Nurse visit Heena Dumont MD 10/12/2013 Office visit Kaylynn Mendez WELDER 2ND SHIFT 10/02/2013 Office visit Heena Dumont MD 09/20/2013 Nurse visit Kaylynn Mendez WELDER 2ND SHIFT 09/20/2013 Voided Heena Dumont MD 09/14/2013 Office visit Kaylynn Walker WELDER 2ND SHIFT 09/05/2013 Office visit Sundeep Russell WELDER 2ND SHIFT 09/04/2013 Nurse visit Kaylynn Walker WELDER 2ND SHIFT 08/31/2013 Office visit Kaylynn Walker WELDER 2ND SHIFT 08/23/2013 Office visit Heena Dumont MD 08/10/2013 Office visit Kaylynn Walker WELDER 2ND SHIFT 07/25/2013 Office visit Kaylynn Walker WELDER 2ND SHIFT 07/18/2013 Office visit Kaylynn Walker WELDER 2ND SHIFT 07/12/2013 Office visit Kaylynn Walker WELDER 2ND SHIFT 06/28/2013 Nurse visit Kaylynn Walker WELDER 2ND SHIFT 06/14/2013 Nurse visit Kaylynn Walker WELDER 2ND SHIFT 06/08/2013 Nurse visit Kaylynn Walker WELDER 2ND SHIFT 05/31/2013 Nurse visit Chadd Norris DO 05/18/2013 Office visit Terese Davidson MD 05/16/2013 Office visit Kaylynn Walker WELDER 2ND SHIFT 05/09/2013 Office visit Kaylynn Walker WELDER 2ND SHIFT 04/29/2013 [facility] John Hoskins MD 04/25/2013 Nurse visit Kaylynn Walker WELDER 2ND SHIFT 04/17/2013 Office visit Kaylynn Walker WELDER 2ND SHIFT 04/03/2013 Nurse visit Kaylynn Walker WELDER 2ND SHIFT 04/03/2013 Office visit Terese Davidson MD 03/28/2013 Office visit Sundeep Russell WELDER 2ND SHIFT 03/21/2013 Office visit Kaylynn Mendez WELDER 2ND SHIFT 03/20/2013 Office visit Terese Davidson MD 03/14/2013 Nurse visit Kaylynn Andrea WELDER 2ND SHIFT 03/05/2013 Nurse visit Kaylynn Andrea WELDER 2ND SHIFT 02/19/2013 Office visit Terese Davidson MD 02/16/2013 Nurse visit Kaylynn Andrea WELDER 2ND SHIFT 02/09/2013 Office visit Sundeep Russell WELDER 2ND SHIFT 02/08/2013 Nurse visit Kaylynn Andrea WELDER 2ND SHIFT 02/01/2013 Nurse visit Kaylynn Andrea WELDER 2ND SHIFT 01/26/2013 Nurse visit Sabrina Andrea HADOOP ADMINISTRATOR 01/25/2013 Office visit Kaylynn Andrea WELDER 2ND SHIFT 01/22/2013 Office visit Yoan Castaneda MD 01/18/2013 Nurse visit Kaylynn Andrea WELDER 2ND SHIFT 01/11/2013 Nurse visit Kaylynn Mendez WELDER 2ND SHIFT 01/05/2013 Nurse visit Kaylynn Mendez WELDER 2ND SHIFT 12/29/2012 Office visit Kaylynn Andrea WELDER 2ND SHIFT 11/27/2012 Office visit Kaylynn Mendez WELDER 2ND SHIFT 11/08/2012 Office visit Odell Tierney MD 11/08/2012 Voided Odell Tierney MD 11/07/2012 Office visit Kayylnn Mendez WELDER 2ND SHIFT 10/31/2012 [facility] John Hoskins MD 10/31/2012 Office visit Kaylynn Andrea WELDER 2ND SHIFT 10/19/2012 Office visit Genoveva Ayala WELDER 2ND SHIFT 10/10/2012 Office visit Kaylynn Mendez WELDER 2ND SHIFT 10/03/2012 Office visit Kaylynn Mendez WELDER 2ND SHIFT 09/26/2012 Office visit Kaylynn Andrea WELDER 2ND SHIFT 09/06/2012 Office visit Kaylynn Andrea WELDER 2ND SHIFT 09/06/2012 Office visit Odell Tierney MD 08/31/2012 Voided Kaylynn Mendez WELDER 2ND SHIFT 07/28/2012 Office visit Kaylynn Mendez WELDER 2ND SHIFT 07/27/2012 Office visit David Joyner DO 07/20/2012 [facility] David Joyner DO 07/13/2012 [facility] Davidaziza Joyner DO 07/11/2012 Office visit Kaylynn Mendez WELDER 2ND SHIFT 06/27/2012 [facility] Odell Tierney MD 06/21/2012 Office visit David Joyner DO 06/21/2012 Office visit Odell Tierney MD 06/20/2012 Office visit Brittni Yanez WELDER 2ND SHIFT 06/06/2012 Office visit Odell Tierney MD 05/03/2012 Office visit Kaylynn Mendez WELDER 2ND SHIFT 04/28/2012 Office visit Brittni Yanez WELDER 2ND SHIFT 04/11/2012 Office visit Kaylynn Mendez WELDER 2ND SHIFT 04/06/2012 [facility] John Hoskins MD 03/30/2012 Office visit Kaylynn Mendez WELDER 2ND SHIFT 03/15/2012 Office visit Kaylynn Mendez WELDER 2ND SHIFT 03/15/2012 Office visit Odell Tierney MD 02/09/2012 Office visit Kaylynn Mendez WELDER 2ND SHIFT 12/23/2011 Office visit Kaylynn Mendez WELDER 2ND SHIFT 11/02/2011 Office visit Kaylynn Mendez WELDER 2ND SHIFT 10/14/2011 Office visit Kaylynn Walker WELDER 2ND SHIFT 09/27/2011 Office visit Kaylynn Walker WELDER 2ND SHIFT 08/19/2011 [facility] John Hoskins MD 08/18/2011 [facility] John Hoskins MD 08/18/2011 Office visit Kaylynn Mendez WELDER 2ND SHIFT 08/02/2011 Office visit Kaylynn Mendez WELDER 2ND SHIFT 07/08/2011 Office visit Kaylynn Mendez WELDER 2ND SHIFT 07/05/2011 Office visit Odell Tierney MD 06/15/2011 Office visit Kaylynn Mendez WELDER 2ND SHIFT 05/14/2011 Office visit Kaylynn Andrea WELDER 2ND SHIFT 05/11/2011 Office visit Odell Tierney MD 04/28/2011 Office visit Kaylynn Mendez WELDER 2ND SHIFT 03/02/2011 Office visit Chadd Norris DO 02/17/2011 [...]
--- OUTSIDE RECORDS SUMMARY | 2018-05-10 07:11 | XMS REPORT ---
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 [place] Lancets 33 gauge miscellaneous misc 01/21/2016 use as directed [facility] miscellaneous strip 01/21/2016 07/19/2016 Test 2x daily, [...] 08/27/2014 use as directed for 99 days [place] 5-325 mg oral tablet 06/17/2014 06/27/2014 take [...] a day as needed for 30 days dqjuoozn-rhtzpykoy-GZ 3.5-10,000-1 mg/mL-unit/mL-% otic drops,suspension 201401/08/2015 instill 4 [...] Reviewed 04/28/2011 12:00 AM Decadron 1 mg [facility]#[id number] (Jr) Reviewed 04/28/2011 12:00 AM Depo-Medrol 80 mg [facility]#[id number]-Fxzvlhfa Reviewed 09/02/2015 12:00 AM Toradol 60 Mg ND#1737-8088-78 Reviewed 09/02/2015 12:00 AM Phenergan, Up to 50 Mg [facility] Medicaid Reviewed 09/16/2015 12:00 AM Toradol 60 Mg ND#4057-8773-93 Reviewed 09/16/2015 12:00 AM Phenergan Up to 50 mg [facility] Medicare Reviewed 05/11/2011 12:00 AM N BLOCK INJ OCCIPITAL Reviewed 05/11/2011 12:00 AM Kenalog Ah-[address]-20 ANNA Reviewed 11/13/2015 12:00 AM ASSAY OF [...] INJ SC/IM Reviewed 07/08/2011 12:00 AM Toradol,15mg [facility]#[id number], Adilene Reviewed 07/08/2011 12:00 AM Phenergan 50 Mg Im [facility] [id number] [facility] Reviewed 01/21/2016 12:00 AM ECG MONIT/REPRT UP TO 48 HRS Returned 08/02/2011 12:00 AM THER/PROPH/DIAG INJ SC/IM Reviewed 08/02/2011 12:00 AM Decadron 1 mg [facility]#[id number] (Jr) Reviewed 08/02/2011 12:00 AM Depo-Medrol 80 mg [facility]#[id number]-Rwzeeauo Reviewed 03/05/2016 12:00 AM COMPLETE CBC W/AUTO DIFF WBC Returned 03/05/2016 12:00 AM STREP A ASSAY W/OPTIC Returned 03/05/2016 12:00 AM C-REACTIVE PROTEIN Returned 03/18/2016 12:00 AM [facility] MEDICARE - flu vaccine administration Reviewed 03/18/2016 12:00 AM INFLUENZA VACCINE QUADRIVALENT 3 YRS PLUS IM Reviewed 04/16/2016 12:00 AM Consult/Referral Reviewed 09/27/2011 12:00 AM THER/PROPH/DIAG INJ SC/IM Reviewed 09/27/2011 12:00 AM Depo-Medrol 80 mg N[facility]#[id number]-Pdyawcal Reviewed 10/14/2011 12:00 AM X-RAY EXAM OF ABDOMEN Returned 10/14/2011 12:00 AM URINALYSIS AUTO W/O SCOPE Reviewed 12/23/2011 12:00 AM THER/PROPH/DIAG INJ SC/IM Reviewed 12/23/2011 12:00 AM Decadron 1 mg [facility]#[id number] (Jr) Reviewed 12/23/2011 12:00 AM Depo-Medrol 80 mg [facility]#[id number]-Fjiciaem Reviewed 02/09/2012 12:00 AM THER/PROPH/DIAG INJ SC/IM Reviewed 02/09/2012 12:00 AM Decadron 1 mg [facility]#[id number] (Jr) Reviewed 02/09/2012 12:00 AM Depo-Medrol 80 mg [facility]#95393028408-Vickajbu Reviewed 03/15/2012 12:00 AM N BLOCK INJ OCCIPITAL Reviewed 03/15/2012 12:00 AM Kenalog Tm-[address]-20 ANNA Reviewed 04/11/2012 12:00 AM COMPLETE CBC W/AUTO DIFF WBC Returned 04/11/2012 12:00 AM COMPREHEN METABOLIC PANEL Returned 04/11/2012 12:00 AM LIPID PANEL Returned 04/11/2012 12:00 AM ASSAY THYROID STIM HORMONE Returned 06/20/2012 12:00 AM THER/PROPH/DIAG INJ SC/IM Reviewed 06/20/2012 12:00 AM Decadron, Per 1 Mg [facility]# [address]-64 Reviewed 06/20/2012 12:00 AM Depo-Medrol, Per 80 Mg N[facility]#7323-3650-94 Reviewed 09/06/2012 12:00 AM N BLOCK INJ OCCIPITAL Reviewed 09/06/2012 12:00 AM Kenalog Lv-[address]-20 ANNA Reviewed 09/06/2012 12:00 AM X-RAY EXAM RIBS UNI 2 VIEWS Returned 09/26/2012 12:00 AM THER/PROPH/DIAG INJ SC/IM Reviewed 09/26/2012 12:00 AM Decadron, Per 1 Mg [facility]# [address]-17 Reviewed 09/26/2012 12:00 AM Depo-Medrol, Per 80 Mg [facility]#4164-9252-38 Reviewed 10/03/2012 12:00 AM URINALYSIS AUTO W/O SCOPE Reviewed 10/03/2012 12:00 AM THER/PROPH/DIAG INJ SC/IM Reviewed 10/03/2012 12:00 AM Toradol 60 Mg [facility]#6666-8294-51 Reviewed 10/03/2012 12:00 AM Phenergan, 25Mg [facility]#8323-3528-06 Reviewed 10/19/2012 12:00 AM N BLOCK INJ OCCIPITAL Reviewed 10/19/2012 12:00 AM Kenalog, Per 10 Mg [facility]#8605-6390-44 Reviewed 10/19/2012 12:00 AM Toradol 30 Mg [facility]#4586-4478-14 Reviewed 10/19/2012 12:00 AM THER/PROPH/DIAG INJ SC/IM Reviewed 10/31/2012 12:00 AM COMPLETE CBC W/AUTO DIFF WBC Returned 10/31/2012 12:00 AM COMPREHEN METABOLIC PANEL Returned 10/31/2012 12:00 AM LIPID PANEL Returned 11/03/2012 12:[address] THORAX W/O & W/DYE Returned 11/08/2012 12:00 AM N BLOCK INJ OCCIPITAL Reviewed 11/08/2012 12:00 AM Kenalog Gv-[address]-20 ANNA Reviewed 11/27/2012 12:00 AM COMPLETE CBC [...] Decadron, Per 1 Mg [facility]# [address]-23 Reviewed 01/25/2013 12:00 AM Depo-Medrol, Per 80 Mg [facility]#3437-5216-50 Reviewed 01/26/2013 12:00 AM IMMUNOTHERAPY INJECTIONS Returned [...] Decadron, Per 1 Mg [facility]# [address]-79 Reviewed 05/16/2013 12:00 AM Depo-Medrol, Per 80 Mg [facility]#0210-3293-96 Reviewed 05/31/2013 12:00 AM IMMUNOTHERAPY INJECTIONS Reviewed 06/08/2013 12:00 AM IMMUNOTHERAPY INJECTIONS Reviewed 06/14/2013 12:00 AM IMMUNOTHERAPY INJECTIONS Reviewed 06/28/2013 12:00 AM IMMUNOTHERAPY INJECTIONS Reviewed 07/12/2013 12:00 AM X-RAY EXAM RIBS UNI 2 VIEWS Returned 07/18/2013 12:00 AM Toradol 60 Mg [facility]#5795-2962-28 Reviewed 07/18/2013 12:00 AM THER/PROPH/DIAG INJ SC/IM Reviewed 08/23/2013 12:00 AM COMPLETE CBC W/AUTO DIFF WBC Reviewed 08/23/2013 12:00 AM COMPREHEN METABOLIC PANEL Reviewed 08/23/2013 12:00 AM LIPID PANEL Reviewed 08/31/2013 12:00 AM X-RAY EXAM OF LOWER LEG Returned 09/04/2013 12:00 AM IMMUNOTHERAPY INJECTIONS Reviewed 09/14/2013 12:00 AM THER/PROPH/DIAG INJ SC/IM Reviewed 09/14/2013 12:00 AM Decadron, Per 1 Mg [facility]# [address]-50 Reviewed 09/14/2013 12:00 AM Depo-Medrol, Per 80 Mg [facility]#3033-6803-62 Reviewed 09/20/2013 12:00 AM IMMUNOTHERAPY INJECTIONS Reviewed [...] INJ OCCIPITAL Reviewed 12/10/2009 12:00 AM Quentin Sb-[address]-20 ANNA Reviewed 12/16/2009 12:00 AM HIV-1ANTIBODY Reviewed 12/16/2009 12:00 AM COMPLETE CBC W/AUTO DIFF WBC Reviewed 12/16/2009 12:00 AM METABOLIC PANEL TOTAL CA Reviewed 12/16/2009 12:00 AM Type and screen Reviewed 12/16/2009 12:00 AM PROTHROMBIN TIME Reviewed 12/16/2009 12:00 AM THROMBOPLASTIN TIME PARTIAL Reviewed 03/18/2010 12:00 AM DRAIN/INJ JOINT/BURSA W/O US Reviewed 03/18/2010 12:00 AM Quentin Fc-[address]-20 ANNA Reviewed 11/21/2013 12:00 AM RADEX HAND MINIMUM 3 VIEWS Returned 06/03/2010 12:00 AM INJ TRIGGER POINT 1/2 MUSCL Reviewed 06/03/2010 12:00 AM Kenalog per 10Mg Im-[facility]#[address]-30(Niall) Reviewed 12/05/2013 12:00 AM COMPLETE CBC W/AUTO [...] Reviewed 07/23/2010 12:00 AM Kenalog per 10Mg Im-Nd#[address]-37(Niall) Reviewed 2014 12:00 AM COMPLETE CBC W/AUTO [...] INJ OCCIPITAL Reviewed 10/01/2010 12:00 AM Kenalog Ko-[address]-20 ANNA Reviewed 07/25/2014 12:00 AM THER/PROPH/DIAG INJ [...] 141 Influenza 04/24/2014 sanofi pasteur PMC Fluzone [id number] Intramuscular Left Upper Arm 02/27/2014 01/15/2014 141 Influenza 02/13/2015 sanofi pasteur PMC Fluzone [id number] Intramuscular Left Deltoid 02/13/2015 01/03/2015 140 Tdap 06/06/2015 [employer] SKB BOOSTRIX [id number] Intramuscular Left Deltoid 06/06/2015 07/23/2014 115 Influenza 03/18/2016 sanofi pasteur PMC Fluzone [id number] Intramuscular Left Deltoid 03/17/2016 01/03/2015 141 History [...] 14 2012 1:15PM Abdominal Pain Nov 27 2013 1:20PM Leukocytosis Nov 27 2012 1:20PM [...] 9:43AM Seasonal allergies Apr 16 2016 9:20AM Payers Insurance Name Company Name Plan Name Plan Number Policy Number Policy Group Number Start Date Medicare Part A Medicare [facility] [id number] N/A [facility] Comm [id number] N/A Medicare Part A Medicare - Lab/Xray [id number] N/A Medicare Part B Medicare Of [place] [id number] Monday, February 28, 2000 [place] [employer] [place] [employer] [id number] Tuesday, November 10, 2009 Medicare Part A Medicare Part A [id number] N/A [place] [employer] [facility] - [facility] [id number] May [facility] [place] [facility] Plan of [id number] Wednesday, May 30, 2012 History of Encounters Visit Date Visit Type Provider 04/14/2016 Office visit Heena Dumont MD 04/13/2016 Office visit Kaylynn Mendez CRACKER SPRAYER 04/02/2016 Office visit Lena El CRACKER SPRAYER 04/02/2016 Office visit Heena Dumont MD 03/26/2016 Office visit Yesica Falcon CRACKER SPRAYER 03/17/2016 Office visit Heena Dumont MD 03/05/2016 Office visit Kaylynn Mendez CRACKER SPRAYER 02/16/2016 Office visit Heena Dumont MD 02/14/2016 Office visit Na Jones CRACKER SPRAYER 01/16/2016 Office visit Heena Dumont MD 12/16/2015 Office visit Heena Dumont MD 11/24/2015 Office visit Kaylynn Mendez CRACKER SPRAYER 11/18/2015 Office visit Heena Dumont MD 11/03/2015 Office visit Sundeep Russell CRACKER SPRAYER 10/20/2015 Office visit Kaylynn Mendez CRACKER SPRAYER 09/23/2015 Office visit Kaylynn Mendez CRACKER SPRAYER 09/16/[address] Pepe Figueroa MD 09/02/2015 Office visit Kaylynn Mendez CRACKER SPRAYER 09/01/2015 Office visit Kaylynn Mendez CRACKER SPRAYER 07/30/2015 Office visit Heena Dumont MD 07/15/2015 Office visit Kaylynn Mendez CRACKER SPRAYER 07/04/2015 Office visit Heena Dumont MD 06/06/2015 Office visit Heena Dumont MD 06/06/2015 Office visit Kaylynn Mendez CRACKER SPRAYER 06/02/2015 Office visit Kaylynn Mendez CRACKER SPRAYER 05/26/2015 Office visit Kaylynn Mendez CRACKER SPRAYER 05/20/2015 Office visit Kaylynn Mendez CRACKER SPRAYER 05/08/2015 Office visit Heena Dumont MD 05/06/2015 Office visit Kaylynn Mendez CRACKER SPRAYER 04/29/2015 Office visit Kaylynn Mendez CRACKER SPRAYER 03/27/2015 Voided Brittni Yanez CRACKER SPRAYER 03/21/2015 Office visit Heena Dumont MD 03/12/2015 Office visit Kaylynn Mendez CRACKER SPRAYER 02/26/2015 Office visit Brittni Yanez CRACKER SPRAYER 02/13/2015 Office visit Heena Dumont MD 01/15/2015 Office visit Brittni Yanez CRACKER SPRAYER 01/13/2015 Office visit Heena Dumont MD 01/08/[address] Carol Fowler MD 01/01/2015 Office visit Brittni Yanez CRACKER SPRAYER 12/13/2014 Office visit Heena Dumont MD 11/27/2014 Office visit Kaylynn Mendez CRACKER SPRAYER 11/14/2014 Office visit Heena Dumont MD 10/18/2014 Office visit Heena Dumont MD 10/17/2014 [facility] Eliseo Hoskins MD 10/09/2014 Office visit Heena Dumont MD 09/25/2014 Office visit Heena Dumont MD 09/17/2014 Office visit Kaylynn Mendez CRACKER SPRAYER 09/04/2014 Office visit Heena Dumont MD 08/28/2014 Office visit Kaylynn Mendez CRACKER SPRAYER 08/23/2014 [facility] Eliseo Hoskins MD 08/01/2014 Office visit Kaylynn Mendez CRACKER SPRAYER 07/29/2014 Office visit Heena Dumont MD 07/25/2014 Nurse visit Heena Dumont MD 07/17/2014 Office visit Kaylynn Mendez CRACKER SPRAYER 07/11/2014 Office visit Heena Dumont MD 07/01/2014 Office visit Heena Dumont MD 06/25/2014 Office visit Kaylynn Mendez CRACKER SPRAYER 06/12/2014 Office visit Kaylynn Mendez CRACKER SPRAYER 06/06/2014 Office visit Kaylynn Mendez CRACKER SPRAYER 05/27/2014 Office visit Heena Dumont MD 04/20/2014 Office visit Yesica Falcon CRACKER SPRAYER 03/29/2014 Office visit Na Jones CRACKER SPRAYER 03/15/2014 Office visit Heena Dumont MD 2014 Office visit Heena Dumont MD 2014 [facility] John Hoskins MD 02/27/2014 Nurse visit Heena Dumont MD 02/13/2014 Office visit Lena El CRACKER SPRAYER 02/07/2014 Office visit Heena Dumont MD 02/03/2014 Office visit Na Jones CRACKER SPRAYER 01/30/2014 Office visit Kaylynn Mendez CRACKER SPRAYER 01/24/2014 Office visit Sundeep Russell CRACKER SPRAYER 01/16/2014 Office visit Kaylynn Mendez CRACKER SPRAYER 01/10/2014 Nurse visit Kaylynn Mendez CRACKER SPRAYER 01/08/2014 Office visit Kaylynn Mendez CRACKER SPRAYER 12/05/2013 Office visit Kaylynn Mendez CRACKER SPRAYER 11/21/2013 Office visit Kaylynn Mendze CRACKER SPRAYER 10/23/2013 Office visit Brittni Yanez CRACKER SPRAYER 10/17/2013 Nurse visit Heena Dumont MD 10/12/2013 Office visit Kaylynn Mendez CRACKER SPRAYER 10/02/2013 Office visit Heena Dumont MD 09/20/2013 Nurse visit Kaylynn Mendez CRACKER SPRAYER 09/20/2013 Voided Heena Dumont MD 09/14/2013 Office visit Kaylynn Walker CRACKER SPRAYER 09/05/2013 Office visit Sundeep Russell CRACKER SPRAYER 09/04/2013 Nurse visit Kaylynn Walker CRACKER SPRAYER 08/31/2013 Office visit Kaylynn Walker CRACKER SPRAYER 08/23/2013 Office visit Heena Dumont MD 08/10/2013 Office visit Kaylynn Walker CRACKER SPRAYER 07/25/2013 Office visit Kaylynn Walker CRACKER SPRAYER 07/18/2013 Office visit Kaylynn Walker CRACKER SPRAYER 07/12/2013 Office visit Kaylynn Walker CRACKER SPRAYER 06/28/2013 Nurse visit Kaylynn Walker CRACKER SPRAYER 06/14/2013 Nurse visit Kaylynn Walker CRACKER SPRAYER 06/08/2013 Nurse visit Kaylynn Walker CRACKER SPRAYER 05/31/2013 Nurse visit Chadd Norris DO 05/18/2013 Office visit Terese Davidson MD 05/16/2013 Office visit Kaylynn Walker CRACKER SPRAYER 05/09/2013 Office visit Kaylynn Mendez CRACKER SPRAYER 04/29/2013 [facility] John Hoskins MD 04/25/2013 Nurse visit Kaylynn Walker CRACKER SPRAYER 04/17/2013 Office visit Kaylynn Walker CRACKER SPRAYER 04/03/2013 Nurse visit Kaylynn Walker CRACKER SPRAYER 04/03/2013 Office visit Terese Davidson MD 03/28/2013 Office visit Sundeep Russell CRACKER SPRAYER 03/21/2013 Office visit Kaylynn Mendez CRACKER SPRAYER 03/20/2013 Office visit Terese Davidson MD 03/14/2013 Nurse visit Kaylynn Walker CRACKER SPRAYER 03/05/2013 Nurse visit Kaylynn Mendez CRACKER SPRAYER 02/19/2013 Office visit Terese Davidson MD 02/16/2013 Nurse visit Kaylynn Mendez CRACKER SPRAYER 02/09/2013 Office visit Sundeep Russell CRACKER SPRAYER 02/08/2013 Nurse visit Kaylynn Walker CRACKER SPRAYER 02/01/2013 Nurse visit Kaylynn Walker CRACKER SPRAYER 01/26/2013 Nurse visit Sabrina Mendez SUPERVISOR FILLING [employer] PACKING 01/25/2013 Office visit Kaylynn Walker CRACKER SPRAYER 01/22/2013 Office visit Yoan Castaneda MD 01/18/2013 Nurse visit Kaylynn Walker CRACKER SPRAYER 01/11/2013 Nurse visit Kaylynn Walker CRACKER SPRAYER 01/05/2013 Nurse visit Kaylynn Walker CRACKER SPRAYER 12/29/2012 Office visit Kaylynn Walker CRACKER SPRAYER 11/27/2012 Office visit Kaylynn Mendez CRACKER SPRAYER 11/08/2012 Office visit Odell Tierney MD 11/08/2012 Voided Odell Tierney MD 11/07/2012 Office visit Kaylynn Mendez CRACKER SPRAYER 10/31/2012 Hospital John Hoskins MD 10/31/2012 Office visit Kaylynn Walker CRACKER SPRAYER 10/19/2012 Office visit Genoveva Ayala CRACKER SPRAYER 10/10/2012 Office visit Kaylynn Walker CRACKER SPRAYER 10/03/2012 Office visit Kaylynn Walker CRACKER SPRAYER 09/26/2012 Office visit Kaylynn Walker CRACKER SPRAYER 09/06/2012 Office visit Kaylynn Mendez CRACKER SPRAYER 09/06/2012 Office visit Odell Tierney MD 08/31/2012 Voided Kaylynn Mendez CRACKER SPRAYER 07/28/2012 Office visit Kaylynn Walker CRACKER SPRAYER 07/27/2012 Office visit David Joyner DO 07/20/2012 [facility] David Joyner DO 07/13/2012 [facility] David Joyner DO 07/11/2012 Office visit Kaylynn Mendez CRACKER SPRAYER 06/27/2012 [facility] Odell Tierney MD 06/21/2012 Office visit David Joyner DO 06/21/2012 Office visit Odell Tierney MD 06/20/2012 Office visit Brittni Yanez CRACKER SPRAYER 06/06/2012 Office visit Odell Tierney MD 05/03/2012 Office visit Kaylynn Mendez CRACKER SPRAYER 04/28/2012 Office visit Brittni Yanez CRACKER SPRAYER 04/11/2012 Office visit Kaylynn Mendez CRACKER SPRAYER 04/06/2012 Hospital John Hoskins MD 03/30/2012 Office visit Kaylynn Mendez CRACKER SPRAYER 03/15/2012 Office visit Kaylynn Mendez CRACKER SPRAYER 03/15/2012 Office visit Odell Tierney MD 02/09/2012 Office visit Kaylynn Mendez CRACKER SPRAYER 12/23/2011 Office visit Kaylynn Mendez CRACKER SPRAYER 11/02/2011 Office visit Kaylynn Mendez CRACKER SPRAYER 10/14/2011 Office visit Kaylynn Walker CRACKER SPRAYER 09/27/2011 Office visit Kaylynn Mendez CRACKER SPRAYER 08/19/2011 Hospital John Hoskins MD 08/18/2011 Hospital John Hoskins MD 08/18/2011 Office visit Kaylynn Mendez CRACKER SPRAYER 08/02/2011 Office visit Kaylynn Walker CRACKER SPRAYER 07/08/2011 Office visit Kaylynn Mendez CRACKER SPRAYER 07/05/2011 Office visit Odell Tierney MD 06/15/2011 Office visit Kaylynn Mendez CRACKER SPRAYER 05/14/2011 Office visit Kaylynn Mendez CRACKER SPRAYER 05/11/2011 Office visit Odell Tierney MD 04/28/2011 Office visit Kaylynn Mendez CRACKER SPRAYER 03/02/2011 Office visit Chadd Norris DO 02/17/2011 [...]
--- OUTSIDE RECORDS SUMMARY | 2018-05-10 07:23 | XMS REPORT ---
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 axprypqk-saaeclkxv-CA 3.5-10,000-1 mg/mL-unit/mL-% otic drops,suspension 201607/23/2016 instill 4 [...] by oral route once daily Chantix Starting [facility] Box 0.5 mg (11)- 1 mg [...] Reviewed 04/28/2011 12:00 AM Decadron 1 mg NDC#[id number] (Jr) Reviewed 04/28/2011 12:00 AM Depo-Medrol 80 mg NDC#[id number]-Euclmwgw Reviewed 09/02/2015 12:00 AM Toradol 60 Mg NDC#1194-6235-97 Reviewed 09/02/2015 12:00 AM Phenergan, Up to 50 Mg RHC Medicaid Reviewed 09/16/2015 12:00 AM Toradol 60 Mg NDC#7519-2574-48 Reviewed 09/16/2015 12:00 AM Phenergan Up to 50 mg RHC Medicare Reviewed 05/11/2011 12:00 AM N BLOCK INJ OCCIPITAL Reviewed 05/11/2011 12:00 AM Kenalog Fx-[address]-20 ANNA Reviewed 11/13/2015 12:00 AM ASSAY OF [...] INJ SC/IM Reviewed 07/08/2011 12:00 AM Toradol,15mg [facility]#[id number], [place] Reviewed 07/08/2011 12:00 AM Phenergan 50 Mg Im [facility] 5381-2920-87 [place] Reviewed 01/21/2016 12:00 AM ECG MONIT/REPRT UP TO 48 HRS Returned 08/02/2011 12:00 AM THER/PROPH/DIAG INJ SC/IM Reviewed 08/02/2011 12:00 AM Decadron 1 mg [facility]#[id number] (Jr) Reviewed 08/02/2011 12:00 AM Depo-Medrol 80 mg [facility]#[id number]-Uvdzxeez Reviewed 03/05/2016 12:00 AM COMPLETE CBC W/AUTO DIFF WBC Returned 03/05/2016 12:00 AM STREP A ASSAY W/OPTIC Returned 03/05/2016 12:00 AM C-REACTIVE PROTEIN Returned 03/18/2016 12:00 AM [facility] MEDICARE [...] Reviewed 09/27/2011 12:00 AM Depo-Medrol 80 mg [facility]#[id number]-Uoshvjjd Reviewed 07/06/2016 12:00 AM CHEST X-RAY 4/> VIEWS Returned 10/14/2011 12:00 AM X-RAY EXAM OF ABDOMEN Reviewed 10/14/2011 12:00 AM URINALYSIS AUTO W/O SCOPE Reviewed 12/23/2011 12:00 AM THER/PROPH/DIAG INJ SC/IM Reviewed 12/23/2011 12:00 AM Decadron 1 mg NDC#[id number] (Jr) Reviewed 12/23/2011 12:00 AM Depo-Medrol 80 mg NDC#[id number]-Aprgqsnx Reviewed 02/09/2012 12:00 AM THER/PROPH/DIAG INJ SC/IM Reviewed 02/09/2012 12:00 AM Decadron 1 mg NDC#[id number] (Jr) Reviewed 02/09/2012 12:00 AM Depo-Medrol 80 mg NDC#[id number]-Pxomzemc Reviewed 03/15/2012 12:00 AM N BLOCK INJ OCCIPITAL Reviewed 03/15/2012 12:00 AM Kenalog Rn-[address]-20 ANNA Reviewed 04/11/2012 12:00 AM COMPLETE CBC W/AUTO DIFF WBC Reviewed 04/11/2012 12:00 AM COMPREHEN METABOLIC PANEL Reviewed 04/11/2012 12:00 AM LIPID PANEL Reviewed 04/11/2012 12:00 AM ASSAY THYROID STIM HORMONE Reviewed 06/20/2012 12:00 AM THER/PROPH/DIAG INJ SC/IM Reviewed 06/20/2012 12:00 AM Decadron, Per 1 Mg ND# [address]-68 Reviewed 06/20/2012 12:00 AM Depo-Medrol, Per 80 Mg ND#5120-3947-74 Reviewed 09/06/2012 12:00 AM N BLOCK INJ OCCIPITAL Reviewed 09/06/2012 12:00 AM Kenalog Db-[address]-20 ANNA Reviewed 09/06/2012 12:00 AM X-RAY EXAM RIBS UNI 2 VIEWS Reviewed 09/26/2012 12:00 AM THER/PROPH/DIAG INJ SC/IM Reviewed 09/26/2012 12:00 AM Decadron, Per 1 Mg ND# [address]-97 Reviewed 09/26/2012 12:00 AM Depo-Medrol, Per 80 Mg ND#3468-4736-56 Reviewed 10/03/2012 12:00 AM URINALYSIS AUTO W/O SCOPE Reviewed 10/03/2012 12:00 AM THER/PROPH/DIAG INJ SC/IM Reviewed 10/03/2012 12:00 AM Toradol 60 Mg ND#3484-7769-12 Reviewed 10/03/2012 12:00 AM Phenergan, 25Mg [facility]#4441-0501-05 Reviewed 10/19/2012 12:00 AM N BLOCK INJ OCCIPITAL Reviewed 10/19/2012 12:00 AM Kenalog, Per 10 Mg ND#1329-4378-62 Reviewed 10/19/2012 12:00 AM Toradol 30 Mg [facility]#5916-6389-40 Reviewed 10/19/2012 12:00 AM THER/PROPH/DIAG INJ SC/IM Reviewed 10/31/2012 12:00 AM COMPLETE CBC W/AUTO DIFF WBC Reviewed 10/31/2012 12:00 AM COMPREHEN METABOLIC PANEL Reviewed 10/31/2012 12:00 AM LIPID PANEL Reviewed 11/03/2012 12:[address] THORAX W/O & W/DYE Reviewed 11/08/2012 12:00 AM N BLOCK INJ OCCIPITAL Reviewed 11/08/2012 12:00 AM Kenalog Md-[address]-20 ANNA Reviewed 11/27/2012 12:00 AM COMPLETE CBC [...] 01/25/2013 12:00 AM Decadron, Per 1 Mg [facility]# [address]-68 Reviewed 01/25/2013 12:00 AM Depo-Medrol, Per 80 Mg [facility]#0503-3235-97 Reviewed 01/26/2013 12:00 AM IMMUNOTHERAPY INJECTIONS Reviewed [...] Per 1 Mg [facility]# [address]-62 Reviewed 05/16/2013 12:00 AM Depo-Medrol, Per 80 Mg [facility]#5146-9309-42 Reviewed 05/31/2013 12:00 AM IMMUNOTHERAPY INJECTIONS Reviewed 06/08/2013 12:00 AM IMMUNOTHERAPY INJECTIONS Reviewed 06/14/2013 12:00 AM IMMUNOTHERAPY INJECTIONS Reviewed 06/28/2013 12:00 AM IMMUNOTHERAPY INJECTIONS Reviewed 07/12/2013 12:00 AM X-RAY EXAM RIBS UNI 2 VIEWS Reviewed 07/18/2013 12:00 AM Toradol 60 Mg [facility]#7423-2599-27 Reviewed 07/18/2013 12:00 AM THER/PROPH/DIAG INJ SC/IM Reviewed 08/23/2013 12:00 AM COMPLETE CBC W/AUTO DIFF WBC Reviewed 08/23/2013 12:00 AM COMPREHEN METABOLIC PANEL Reviewed 08/23/2013 12:00 AM LIPID PANEL Reviewed 08/31/2013 12:00 AM X-RAY EXAM OF LOWER LEG Reviewed 09/04/2013 12:00 AM IMMUNOTHERAPY INJECTIONS Reviewed 09/14/2013 12:00 AM THER/PROPH/DIAG INJ SC/IM Reviewed 09/14/2013 12:00 AM Decadron, Per 1 Mg [facility]# [address]-45 Reviewed 09/14/2013 12:00 AM Depo-Medrol, Per 80 Mg [facility]#7739-5369-23 Reviewed 09/20/2013 12:00 AM IMMUNOTHERAPY INJECTIONS Reviewed [...] INJ OCCIPITAL Reviewed 12/10/2009 12:00 AM Kenalog Px-[address]-20 ANNA Reviewed 12/16/2009 12:00 AM HIV-1ANTIBODY Reviewed 12/16/2009 12:00 AM COMPLETE CBC W/AUTO DIFF WBC Reviewed 12/16/2009 12:00 AM METABOLIC PANEL TOTAL CA Reviewed 12/16/2009 12:00 AM Type and screen Reviewed 12/16/2009 12:00 AM PROTHROMBIN TIME Reviewed 12/16/2009 12:00 AM THROMBOPLASTIN TIME PARTIAL Reviewed 03/18/2010 12:00 AM DRAIN/INJ JOINT/BURSA W/O US Reviewed 03/18/2010 12:00 AM Kenalog Sm-[address]-20 ANNA Reviewed 11/21/2013 12:00 AM RADEX HAND MINIMUM 3 VIEWS Reviewed 06/03/2010 12:00 AM INJ TRIGGER POINT 1/2 MUSCL Reviewed 06/03/2010 12:00 AM Kenalog per 10Mg -[facility]#[address]-44(Niall) Reviewed 12/05/2013 12:00 AM COMPLETE CBC W/AUTO [...] Reviewed 07/23/2010 12:00 AM Kenalog per 10Mg Im-Mdc#[address]-67(Niall) Reviewed 2014 12:00 AM COMPLETE CBC W/AUTO [...] INJ OCCIPITAL Reviewed 10/01/2010 12:00 AM Kenalog Tf-[address]-20 ANNA Reviewed 07/25/2014 12:00 AM THER/PROPH/DIAG INJ [...] 4.59 HGB 13.90 g/dLHCT 41.60 %MCV 91.0 [facility] 30.30 [facility] 33.40 g/dLRDW SD 44 RDW CV 13.60 [...] Quant,IgM <0.80 RMSF , IgG, EIA Negative [facility] [...] Detected History Of Immunizations Name Date Admin [facility] Name Mf Code Trade Name Lot# Route Inj Vis Given Vis Pub CVX Influenza 03/30/2011 Not Entered NE Not Entered Not Entered Not Entered 03/31/2011 05/30/2016 141 Influenza 04/24/2014 sanofi pasteur PMC Fluzone [id number] Intramuscular Left Upper Arm 02/27/2014 01/15/2014 141 Influenza 02/13/2015 sanofi pasteur PMC Fluzone [id number] Intramuscular Left Deltoid 02/13/2015 01/03/2015 140 Tdap 06/06/2015 GlaxAdhere2Careine SKB BOOSTRIX [id number] Intramuscular Left Deltoid 06/06/2015 07/23/2014 115 Influenza 03/18/2016 [facility] Fluzone [id number] Intramuscular Left Deltoid 03/17/2016 01/03/2015 141 History [...] 2016 10:32AM Lumbago Aug 09 2016 8:51AM Payers Insurance Name Company Name Plan Name Plan Number Policy Number Policy Group Number Start Date Medicare RHC Medicare RHC [id number] N/A [facility] - RHC - [facility] RHC Comm [id number] N/A Medicare Part A Medicare - Lab/Xray [id number] N/A Medicare Part B Medicare Of [place] [id number] Monday, February 28, 2000 [place] [employer] [place] [employer] [place] [id number] Tuesday, November 10, 2009 Medicare Part A Medicare Part A [id number] N/A [place] [employer] - RHC [place] [employer] - RHC [id number] [facility] Plan [facility] Comm Plan of [id number] Wednesday, May 30, 2012 History of Encounters Visit Date Visit Type Provider 07/09/2016 Office visit Riccardo Cardoza MD 07/06/2016 Office visit Heena Dumont MD 06/18/2016 Office visit Kaylynn Mendez MASON TENDER 06/07/2016 Office visit Sundeep Russell MASON TENDER 06/04/2016 Office visit Heena Dumont MD 05/13/2016 Office visit Heena Dumont MD 05/03/2016 Office visit Heena Dumont MD 04/26/2016 Office visit Kaylynn Mendez MASON TENDER 04/14/2016 Office visit Heena Dumont MD 04/13/2016 Office visit Kaylynn Mendez MASON TENDER 04/02/2016 Office visit Lena El MASON TENDER 04/02/2016 Office visit Heena Dumont MD 03/26/2016 Office visit Yesica Falcon MASON TENDER 03/17/2016 Office visit Henea Dumont MD 03/05/2016 Office visit Kaylynn Mendez MASON TENDER 02/16/2016 Office visit Heena Dumont MD 02/14/2016 Office visit Na Jones MASON TENDER 01/16/2016 Office visit Heena Dumont MD 12/16/2015 Office visit Heena Dumont MD 11/24/2015 Office visit Kaylynn Mendez MASON TENDER 11/18/2015 Office visit Heena Dumont MD 11/03/2015 Office visit Sundeep Russell MASON TENDER 10/20/2015 Office visit Kaylynn Mendez MASON TENDER 09/23/2015 Office visit Kaylynn Mendez MASON TENDER 09/16/[address] Pepe Figueroa MD 09/02/2015 Office visit Kaylynn Walker MASON TENDER 09/01/2015 Office visit Kaylynn Walker MASON TENDER 07/30/2015 Office visit Heena Dumont MD 07/15/2015 Office visit Kaylynn Walker MASON TENDER 07/04/2015 Office visit Heena Dumont MD 06/06/2015 Office visit Heena Dumont MD 06/06/2015 Office visit Kaylynn Walker MASON TENDER 06/02/2015 Office visit Kaylynn Walker MASON TENDER 05/26/2015 Office visit Kaylynn Walker MASON TENDER 05/20/2015 Office visit Kaylynn Walker MASON TENDER 05/08/2015 Office visit Heena Dumont MD 05/06/2015 Office visit Kaylynn Walker MASON TENDER 04/29/2015 Office visit Kaylynn Walker MASON TENDER 03/27/2015 Voided Brittni Yanez MASON TENDER 03/21/2015 Office visit Heena Dumont MD 03/12/2015 Office visit Kaylynn Mendez MASON TENDER 02/26/2015 Office visit Brittni Yanez MASON TENDER 02/13/2015 Office visit Heena Dumont MD 01/15/2015 Office visit Brittni Yanez MASON TENDER 01/13/2015 Office visit Heena Dumont MD 01/08/[address] Carol Fowler MD 01/01/2015 Office visit Brittni Yanez MASON TENDER 12/13/2014 Office visit Heena Dumont MD 11/27/2014 Office visit Kaylynn Mendez MASON TENDER 11/14/2014 Office visit Heena Dumont MD 10/18/2014 Office visit Heena Dumont MD 10/17/2014 Hospital John Hoskins MD 10/09/2014 Office visit Heena Dumont MD 09/25/2014 Office visit Heena Dumotn MD 09/17/2014 Office visit Kaylynn Mendez MASON TENDER 09/04/2014 Office visit Heena Dumont MD 08/28/2014 Office visit aKylynn Mendez MASON TENDER 08/23/2014 Hospital John Hoskins MD 08/01/2014 Office visit Kaylynn Mendez MASON TENDER 07/29/2014 Office visit Heena Dumont MD 07/25/2014 Nurse visit Heena Dumont MD 07/17/2014 Office visit Kaylynn Mendez MASON TENDER 07/11/2014 Office visit Heena Dumont MD 07/01/2014 Office visit Heena Dumont MD 06/25/2014 Office visit Kaylynn Walker MASON TENDER 06/12/2014 Office visit Kaylynn Mendez MASON TENDER 06/06/2014 Office visit Kaylynn Mendez MASON TENDER 05/27/2014 Office visit Heena Dumont MD 04/20/2014 Office visit Yesica Falcon MASON TENDER 03/29/2014 Office visit Na Jones MASON TENDER 03/15/2014 Office visit Heena Dumont MD 2014 Office visit Heena Dumont MD 2014 [facility] John Hoskins MD 02/27/2014 Nurse visit Heena Dumont MD 02/13/2014 Office visit Lena El MASON TENDER 02/07/2014 Office visit Heena Dumont MD 02/03/2014 Office visit Na Jones MASON TENDER 01/30/2014 Office visit Kaylynn Mendez MASON TENDER 01/24/2014 Office visit Sundeep Russell MASON TENDER 01/16/2014 Office visit Kaylynn Walker MASON TENDER 01/10/2014 Nurse visit Kaylynn Walker MASON TENDER 01/08/2014 Office visit Kaylynn Walker MASON TENDER 12/05/2013 Office visit Kaylynn Walker MASON TENDER 11/21/2013 Office visit Kaylynn Walker MASON TENDER 10/23/2013 Office visit Brittni Yanez MASON TENDER 10/17/2013 Nurse visit Heena Dumont MD 10/12/2013 Office visit Kaylynn Mendez MASON TENDER 10/02/2013 Office visit Heena Dumont MD 09/20/2013 Nurse visit Kaylynn Mendez MASON TENDER 09/20/2013 Voided Heena Dumont MD 09/14/2013 Office visit Kaylynn Walker MASON TENDER 09/05/2013 Office visit Sundeep Russell MASON TENDER 09/04/2013 Nurse visit Kaylynn Walker MASON TENDER 08/31/2013 Office visit Kaylynn Walker MASON TENDER 08/23/2013 Office visit Heena Dumont MD 08/10/2013 Office visit Kaylynn Walker MASON TENDER 07/25/2013 Office visit Kaylynn Walker MASON TENDER 07/18/2013 Office visit Kaylynn Walker MASON TENDER 07/12/2013 Office visit Kaylynn Walker MASON TENDER 06/28/2013 Nurse visit Kaylynn Walker MASON TENDER 06/14/2013 Nurse visit Kaylynn Walker MASON TENDER 06/08/2013 Nurse visit Kaylynn Walker MASON TENDER 05/31/2013 Nurse visit Chadd Norris DO 05/18/2013 Office visit Terese Davidson MD 05/16/2013 Office visit Kaylynn Walker MASON TENDER 05/09/2013 Office visit Kaylynn Walker MASON TENDER 04/29/2013 [facility] John Hoskins MD 04/25/2013 Nurse visit Kaylynn Walker MASON TENDER 04/17/2013 Office visit Kaylynn Walker MASON TENDER 04/03/2013 Nurse visit Kaylynn Walker MASON TENDER 04/03/2013 Office visit Terese Davidson MD 03/28/2013 Office visit Sundeep Russell MASON TENDER 03/21/2013 Office visit Kaylynn Mendez MASON TENDER 03/20/2013 Office visit Terese Davidson MD 03/14/2013 Nurse visit Kaylynn Walker MASON TENDER 03/05/2013 Nurse visit Kaylynn Andrea MASON TENDER 02/19/2013 Office visit Terese Davidson MD 02/16/2013 Nurse visit Kaylynn Andrea MASON TENDER 02/09/2013 Office visit Sundeep Russell MASON TENDER 02/08/2013 Nurse visit Kaylynn Walker MASON TENDER 02/01/2013 Nurse visit Kaylynn Andrea MASON TENDER 01/26/2013 Nurse visit Sabrina Andrea CHEMIST ASSISTANT 01/25/2013 Office visit Kaylynn Mendez MASON TENDER 01/22/2013 Office visit Yoan Castaneda MD 01/18/2013 Nurse visit Kaylynn Andrea MASON TENDER 01/11/2013 Nurse visit Kaylynn Andrea MASON TENDER 01/05/2013 Nurse visit Kaylynn Andrea MASON TENDER 12/29/2012 Office visit Kaylynn Mendez MASON TENDER 11/27/2012 Office visit Kaylynn Mendez MASON TENDER 11/08/2012 Office visit Odell Tierney MD 11/08/2012 Voided Odell Tierney MD 11/07/2012 Office visit Kaylynn Mendez MASON TENDER 10/31/2012 [facility] John Hoskins MD 10/31/2012 Office visit Kaylynn Mendez MASON TENDER 10/19/2012 Office visit Genoveva Ayala MASON TENDER 10/10/2012 Office visit Kaylynn Mendez MASON TENDER 10/03/2012 Office visit Kaylynn Mendez MASON TENDER 09/26/2012 Office visit Kaylynn Mendez MASON TENDER 09/06/2012 Office visit Kaylynn Mnedez MASON TENDER 09/06/2012 Office visit Odell Tierney MD 08/31/2012 Voided Kaylynn Mendez MASON TENDER 07/28/2012 Office visit Kaylynn Mendez MASON TENDER 07/27/2012 Office visit David Joyner DO 07/20/2012 [facility] David Joyner DO 07/13/2012 [facility] David Joyner DO 07/11/2012 Office visit Kaylynn Mendez MASON TENDER 06/27/2012 [facility] Odell Tierney MD 06/21/2012 Office visit David Joyner DO 06/21/2012 Office visit Odell Tierney MD 06/20/2012 Office visit Brittni Yanez MASON TENDER 06/06/2012 Office visit Odell Tierney MD 05/03/2012 Office visit Kaylynn Mendez MASON TENDER 04/28/2012 Office visit Brittni Yanez MASON TENDER 04/11/2012 Office visit Kaylynn Mendez MASON TENDER 04/06/2012 Hospital John Hoskins MD 03/30/2012 Office visit Kaylynn Walker MASON TENDER 03/15/2012 Office visit Kaylynn Walker MASON TENDER 03/15/2012 Office visit Odell Tierney MD 02/09/2012 Office visit Kaylynn Walker MASON TENDER 12/23/2011 Office visit Kaylynn Walker MASON TENDER 11/02/2011 Office visit Kaylynn Walker MASON TENDER 10/14/2011 Office visit Kaylynn Walker MASON TENDER 09/27/2011 Office visit Kaylynn Walker MASON TENDER 08/19/2011 Hospital John Hoskins MD 08/18/2011 Hospital John Hoskins MD 08/18/2011 Office visit Kaylynn Mendez MASON TENDER 08/02/2011 Office visit Kaylynn Walker MASON TENDER 07/08/2011 Office visit Kaylynn Mendez MASON TENDER 07/05/2011 Office visit Odell Tierney MD 06/15/2011 Office visit Kaylynn Mendez MASON TENDER 05/14/2011 Office visit Kaylynn Andrea MASON TENDER 05/11/2011 Office visit Odell Tierney MD 04/28/2011 Office visit Kaylynn Mendez MASON TENDER 03/02/2011 Office visit Chadd Norris DO 02/17/2011 [...]
--- OUTSIDE RECORDS SUMMARY | 2018-05-10 07:29 | XMS REPORT ---
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 Name Role Phone Kaylynn Mendez PCP Unavailable Allergies and Adverse Reactions Name Reaction Notes Aspirin Methadone Ultram Vicodin Plan of Treatment Planned Activity Comments Planned Date Planned Time Plan/Goal CINE/VID X-RAY THROAT/ESOPH 05/08/2015 12:00 AM X-RAY EXAM OF PELVIS 07/28/2015 12:00 AM ELECTROCARDIOGRAM COMPLETE 10/31/2012 12:00 AM [...] mg) by oral route every 12 hours metoprolol succinate 100 mg oral tablet [...] 08/27/2014 use as directed for 99 days [place] 5-325 mg oral tablet 06/17/2014 06/27/2014 take [...] a day as needed for 30 days [id number] 3.5-10,000-1 mg/mL-unit/mL-% otic drops,suspension 201401/08/2015 instill 4 [...] Reviewed 04/28/2011 12:00 AM Decadron 1 mg [facility]#[id number] (Jr) Reviewed 04/28/2011 12:00 AM Depo-Medrol 80 mg ND#[id number]-Ckbgaaoq Reviewed 05/11/2011 12:00 AM N BLOCK INJ OCCIPITAL Reviewed 05/11/2011 12:00 AM Kenalog Gq-[id number] ANNA Reviewed 06/15/2011 12:00 AM COMPLETE CBC W/AUTO DIFF WBC Returned 06/15/2011 12:00 AM COMPREHEN METABOLIC PANEL Returned 07/08/2011 12:00 AM THER/PROPH/DIAG INJ SC/IM Reviewed 07/08/2011 12:00 AM Toradol,15mg ND#[id number], Adilene Reviewed 07/08/2011 12:00 AM Phenergan 50 Mg Im Nd 1582-7607-96 ALLIE Hoskins Reviewed 08/02/2011 12:00 AM THER/PROPH/DIAG INJ SC/IM Reviewed 08/02/2011 12:00 AM Decadron 1 mg NDC#[id number] (Jr) Reviewed 08/02/2011 12:00 AM Depo-Medrol 80 mg NDC#[id number]-Reiidbrv Reviewed 09/27/2011 12:00 AM THER/PROPH/DIAG INJ SC/IM Reviewed 09/27/2011 12:00 AM Depo-Medrol 80 mg NDC#[id number]-Msosqqqe Reviewed 10/14/2011 12:00 AM X-RAY EXAM OF ABDOMEN Returned 10/14/2011 12:00 AM URINALYSIS AUTO W/O SCOPE Reviewed 12/23/2011 12:00 AM THER/PROPH/DIAG INJ SC/IM Reviewed 12/23/2011 12:00 AM Decadron 1 mg NDC#[id number] (Jr) Reviewed 12/23/2011 12:00 AM Depo-Medrol 80 mg NDC#[id number]-Qisoswnh Reviewed 02/09/2012 12:00 AM THER/PROPH/DIAG INJ SC/IM Reviewed 02/09/2012 12:00 AM Decadron 1 mg NDC#[id number] (Jr) Reviewed 02/09/2012 12:00 AM Depo-Medrol 80 mg NDC#[id number]-Qubbsgye Reviewed 03/15/2012 12:00 AM N BLOCK INJ OCCIPITAL Reviewed 03/15/2012 12:00 AM Kenalog Ge-[address]-20 ANNA Reviewed 04/11/2012 12:00 AM COMPLETE CBC W/AUTO DIFF WBC Returned 04/11/2012 12:00 AM COMPREHEN METABOLIC PANEL Returned 04/11/2012 12:00 AM LIPID PANEL Returned 04/11/2012 12:00 AM ASSAY THYROID STIM HORMONE Returned 06/20/2012 12:00 AM THER/PROPH/DIAG INJ SC/IM Reviewed 06/20/2012 12:00 AM Decadron, Per 1 Mg NDC# [address]-38 Reviewed 06/20/2012 12:00 AM Depo-Medrol, Per 80 Mg NDC#9949-8959-99 Reviewed 09/06/2012 12:00 AM N BLOCK INJ OCCIPITAL Reviewed 09/06/2012 12:00 AM Kenalog Bd-[address]-20 ANNA Reviewed 09/06/2012 12:00 AM X-RAY EXAM RIBS UNI 2 VIEWS Returned 09/26/2012 12:00 AM THER/PROPH/DIAG INJ SC/IM Reviewed 09/26/2012 12:00 AM Decadron, Per 1 Mg [facility]# [address]-59 Reviewed 09/26/2012 12:00 AM Depo-Medrol, Per 80 Mg [facility]#9380-1570-63 Reviewed 10/03/2012 12:00 AM URINALYSIS AUTO W/O SCOPE Reviewed 10/03/2012 12:00 AM THER/PROPH/DIAG INJ SC/IM Reviewed 10/03/2012 12:00 AM Toradol 60 Mg [facility]#6402-5127-00 Reviewed 10/03/2012 12:00 AM Phenergan, 25Mg [facility]#4994-5225-14 Reviewed 10/19/2012 12:00 AM N BLOCK INJ OCCIPITAL Reviewed 10/19/2012 12:00 AM Kenalog, Per 10 Mg [facility]#7528-2814-85 Reviewed 10/19/2012 12:00 AM Toradol 30 Mg [facility]#7357-2544-74 Reviewed 10/19/2012 12:00 AM THER/PROPH/DIAG INJ SC/IM Reviewed 10/31/2012 12:00 AM COMPLETE CBC W/AUTO DIFF WBC Returned 10/31/2012 12:00 AM COMPREHEN METABOLIC PANEL Returned 10/31/2012 12:00 AM LIPID PANEL Returned 11/03/2012 12:[address] THORAX W/O & W/DYE Returned 11/08/2012 12:00 AM N BLOCK INJ OCCIPITAL Reviewed 11/08/2012 12:00 AM Kenalog Vk-[id number] ANNA Reviewed 11/27/2012 12:00 AM COMPLETE CBC [...] 1 Mg [facility]# [address]-92 Reviewed 01/25/2013 12:00 AM Depo-Medrol, Per 80 Mg [facility]#2796-1710-64 Reviewed 01/26/2013 12:00 AM IMMUNOTHERAPY INJECTIONS Returned [...] 1 Mg [facility]# [address]-56 Reviewed 05/16/2013 12:00 AM Depo-Medrol, Per 80 Mg [facility]#4596-7016-97 Reviewed 05/31/2013 12:00 AM IMMUNOTHERAPY INJECTIONS Reviewed 06/08/2013 12:00 AM IMMUNOTHERAPY INJECTIONS Reviewed 06/14/2013 12:00 AM IMMUNOTHERAPY INJECTIONS Reviewed 06/28/2013 12:00 AM IMMUNOTHERAPY INJECTIONS Reviewed 07/12/2013 12:00 AM X-RAY EXAM RIBS UNI 2 VIEWS Returned 07/18/2013 12:00 AM Toradol 60 Mg [facility]#3187-0104-31 Reviewed 07/18/2013 12:00 AM THER/PROPH/DIAG INJ SC/IM [...] 1 Mg [facility]# [address]-34 Reviewed 09/14/2013 12:00 AM Depo-Medrol, Per 80 Mg [facility]#6042-8845-88 Reviewed 09/20/2013 12:00 AM IMMUNOTHERAPY INJECTIONS Reviewed [...] INJ OCCIPITAL Reviewed 12/10/2009 12:00 AM Kenalog As-[address]-20 ANNA Reviewed 12/16/2009 12:00 AM HIV-1ANTIBODY Reviewed 12/16/2009 12:00 AM COMPLETE CBC W/AUTO DIFF WBC Reviewed 12/16/2009 12:00 AM METABOLIC PANEL TOTAL CA Reviewed 12/16/2009 12:00 AM Type and screen Reviewed 12/16/2009 12:00 AM PROTHROMBIN TIME Reviewed 12/16/2009 12:00 AM THROMBOPLASTIN TIME PARTIAL Reviewed 03/18/2010 12:00 AM DRAIN/INJ JOINT/BURSA W/O US Reviewed 03/18/2010 12:00 AM Kenalog Kc-[address]-20 ANNA Reviewed 11/21/2013 12:00 AM RADEX HAND MINIMUM 3 VIEWS Returned 06/03/2010 12:00 AM INJ TRIGGER POINT 1/2 MUSCL Reviewed 06/03/2010 12:00 AM Kenalog per 10Mg Im-[facility]#[address]-04(Niall) Reviewed 12/05/2013 12:00 AM COMPLETE CBC W/AUTO [...] 12:00 AM Kenalog per 10Mg Im-[facility]#[address]-74(Niall) Reviewed 2014 12:00 AM COMPLETE CBC W/AUTO [...] INJ OCCIPITAL Reviewed 10/01/2010 12:00 AM Quentin Yp-[address]-20 ANNA Reviewed 07/25/2014 12:00 AM THER/PROPH/DIAG INJ [...] 0.60 mg/dLCALCIUM 10.90 mg/ dLeGFR >60 mL/min/1.73 [id number] 45.0 U/L 08/31/2013 10:54 AM GLUCOSE 255.0 mg/dLSODIUM 133.0 mmol/LPOTASSIUM 4.60 mmol/ LCHLORIDE 100.0 mmol/LCO2 20.0 mmol/LBUN 12.0 mg/dLCREATININE 0.80 mg/dLSGOT/ AST 52.0 IU/LSGPT/ALT 87.0 IU/LALK PHOS 118.0 IU/LTOTAL PROTEIN 7.20 g/ dLALBUMIN 4.30 g/dLTOTAL BILI 0.30 mg/dLCALCIUM 9.30 mg/dLeGFR 60 WBC 11.3 RBC 3.96 HGB 12.40 g/dLHCT 37.80 %MCV 96.0 [facility] 31.30 pgHC 32.80 g/dLRDW CV 12.80 %MPV [...] 0.40 mg/ dLCALCIUM 10.60 mg/dLeGFR >60 mL/min/1.73 [id number] 369.0 mg/ dLCHOLESTEROL 153.0 mg/dLHDL 26.0 mg/dLLDL [...] BILI 0.30 mg/dLCALCIUM 10.0 mg/dLeGFR >60 mL/min/1.73 [id number] YELLOW APPEARANCE CLEAR SPEC GRAV 1.010 pH 5.5 PROTEIN NEGATIVE GLUCOSE NEGATIVE KETONE NEGATIVE BILIRUBIN NEGATIVE BLOOD NEGATIVE NITRITE NEGATIVE LEUK SCREEN NEGATIVE Est Avg Glucose 134.1 mg/dLMICROALBUMIN UR <0.5 MG/DL 02/13/2015 4:38 PM RMSF, IgG, EIA Negative Dejuan Orn Spotted Fever,IgM 0.51 E. chaffeensis ([facility]) IgGTiter [...] 10.30 mg/dLeGFR >60 mL/min/1.73mVITAMIN D 60.90 ng/mL History Of Immunizations Name Date Admin Mfg Name Mfg Code Trade Name Lot# Route Inj Vis Given Vis Pub CVX Influenza 03/30/2011 Not Entered NE Not Entered Not Entered Not Entered 03/31/2011 05/30/2015 141 Influenza 04/24/2014 sanofi pasteur PMC Fluzone [id number] Intramuscular Left Upper Arm 02/27/2014 01/15/2014 141 Influenza 02/13/2015 sanofi pasteur PMC Fluzone [id number] Intramuscular Left Deltoid 02/13/2015 01/03/2015 140 Tdap [...] Date Medicare Part A Medicare Part A [id number] N/A [facility] Comm [id number] N/A [employer] [facility] C [id number] May [facility] Comm Plan of [id number] Wednesday, 2012 Medicare Part B Medicare [facility] [id number] Monday, 2000 [place] [facility] [id number] Tuesday, 2009 History of Encounters Visit Date Visit Type Provider 07/15/2015 Office visit Kaylynn Mendez GASKET MAKER 07/04/2015 Office visit Heena Dumont MD 06/06/2015 Office visit Heena Dumont MD 06/06/2015 Office visit Kaylynn Mendez GASKET MAKER 06/02/2015 Office visit Kaylynn Walker GASKET MAKER 05/26/2015 Office visit Kaylynn Walker GASKET MAKER 05/20/2015 Office visit Kaylynn Mendez GASKET MAKER 05/08/2015 Office visit Heena Dumont MD 05/06/2015 Office visit Kaylynn Mendez GASKET MAKER 04/29/2015 Office visit Kaylynn Mendez GASKET MAKER 03/27/2015 Voided Brittni Yanez GASKET MAKER 03/21/2015 Office visit Heena Dumont MD 03/12/2015 Office visit Kaylynn Mendez GASKET MAKER 02/26/2015 Office visit Brittni Yanez GASKET MAKER 02/13/2015 Office visit Heena Dumont MD 01/15/2015 Office visit Brittni Yanez GASKET MAKER 01/13/2015 Office visit Heena Dumont MD 01/08/[address] Carol Fowler MD 01/01/2015 Office visit Brittni Yanez GASKET MAKER 12/13/2014 Office visit Heena Dumont MD 11/27/2014 Office visit Kaylynn Mendez GASKET MAKER 11/14/2014 Office visit Heena Dumont MD 10/18/2014 Office visit Heena Dumont MD 10/17/2014 [facility] Eliseo Hoskins MD 10/09/2014 Office visit Heena Dumont MD 09/25/2014 Office visit Heena Dumont MD 09/17/2014 Office visit Kaylynn Mendez GASKET MAKER 09/04/2014 Office visit Heena Dumont MD 08/28/2014 Office visit Kaylynn Mendez GASKET MAKER 08/23/2014 [facility] Eliseo Hoskins MD 08/01/2014 Office visit Kaylynn Mendez GASKET MAKER 07/29/2014 Office visit Heena Dumont MD 07/25/2014 Nurse visit Heena Dumont MD 07/17/2014 Office visit Kaylynn Mendez GASKET MAKER 07/11/2014 Office visit Heena Dumont MD 07/01/2014 Office visit Heena Dumont MD 06/25/2014 Office visit Kaylynn Mendez GASKET MAKER 06/12/2014 Office visit Kaylynn Mendez GASKET MAKER 06/06/2014 Office visit Kaylynn Mendez GASKET MAKER 05/27/2014 Office visit Heena Dumont MD 04/20/2014 Office visit Markuskristen Avery Falcon GASKET MAKER 03/29/2014 Office visit Na Jones GASKET MAKER 03/15/2014 Office visit Heena Dumont MD 2014 Office visit Heena Dumont MD 2014 [facility] John Hoskins MD 02/27/2014 Nurse visit Heena Dumont MD 02/13/2014 Office visit Lena El GASKET MAKER 02/07/2014 Office visit Heena Dumont MD 02/03/2014 Office visit Na Jones GASKET MAKER 01/30/2014 Office visit Kaylynn Mendez GASKET MAKER 01/24/2014 Office visit Sundeep Russell GASKET MAKER 01/16/2014 Office visit Kaylynn Walker GASKET MAKER 01/10/2014 Nurse visit Kaylynn Mendez GASKET MAKER 01/08/2014 Office visit Kaylynn Walker GASKET MAKER 12/05/2013 Office visit Kaylynn Walker GASKET MAKER 11/21/2013 Office visit Kaylynn Walker GASKET MAKER 10/23/2013 Office visit Brittni Yanez GASKET MAKER 10/17/2013 Nurse visit Heena Dumont MD 10/12/2013 Office visit Kaylynn Mendez GASKET MAKER 10/02/2013 Office visit Heena Dumont MD 09/20/2013 Nurse visit Kaylynn Mendez GASKET MAKER 09/20/2013 Voided Heean Dumont MD 09/14/2013 Office visit Kaylynn Walker GASKET MAKER 09/05/2013 Office visit Sundeep Russell GASKET MAKER 09/04/2013 Nurse visit Kaylynn Walker GASKET MAKER 08/31/2013 Office visit Kaylynn Walker GASKET MAKER 08/23/2013 Office visit Heena Dumont MD 08/10/2013 Office visit Kaylynn Walker GASKET MAKER 07/25/2013 Office visit Kaylynn Walker GASKET MAKER 07/18/2013 Office visit Kaylynn Walker GASKET MAKER 07/12/2013 Office visit Kaylynn Walker GASKET MAKER 06/28/2013 Nurse visit Kaylynn Walker GASKET MAKER 06/14/2013 Nurse visit Kaylynn Walker GASKET MAKER 06/08/2013 Nurse visit Kaylynn Walker GASKET MAKER 05/31/2013 Nurse visit Chadd Norris DO 05/18/2013 Office visit Terese Davidson MD 05/16/2013 Office visit Kaylynn Walker GASKET MAKER 05/09/2013 Office visit Kaylynn Mendez GASKET MAKER 04/29/2013 [facility] John Hoskins MD 04/25/2013 Nurse visit Kaylynn Walker GASKET MAKER 04/17/2013 Office visit Kaylynn Walker GASKET MAKER 04/03/2013 Nurse visit Kaylynn Walker GASKET MAKER 04/03/2013 Office visit Terese Davidson MD 03/28/2013 Office visit Sundeep Russell GASKET MAKER 03/21/2013 Office visit Kaylynn Mendez GASKET MAKER 03/20/2013 Office visit Terese Davidson MD 03/14/2013 Nurse visit Kaylynn Mendez GASKET MAKER 03/05/2013 Nurse visit Kaylynn Andrea GASKET MAKER 02/19/2013 Office visit Terese Davidson MD 02/16/2013 Nurse visit Kaylynn Andrea GASKET MAKER 02/09/2013 Office visit Sundeep Russell GASKET MAKER 02/08/2013 Nurse visit Kaylynn Andrea GASKET MAKER 02/01/2013 Nurse visit Kaylynn Andrea GASKET MAKER 01/26/2013 Nurse visit Sabrina Andrea SUPERVISOR SOUND TECHNICIAN 01/25/2013 Office visit Kaylynn Andrea GASKET MAKER 01/22/2013 Office visit Yoan Castaneda MD 01/18/2013 Nurse visit Kaylynn Andrea GASKET MAKER 01/11/2013 Nurse visit Kaylynn Andrea GASKET MAKER 01/05/2013 Nurse visit Kaylynn Andrea GASKET MAKER 12/29/2012 Office visit Kaylynn Andrea GASKET MAKER 11/27/2012 Office visit Kaylynn Mendez GASKET MAKER 11/08/2012 Office visit Odell Tierney MD 11/08/2012 Voided Odell Tierney MD 11/07/2012 Office visit Kaylynn Mendez GASKET MAKER 10/31/2012 [facility] John Hoskins MD 10/31/2012 Office visit Kaylynn Mendez GASKET MAKER 10/19/2012 Office visit Genoveva Ayala GASKET MAKER 10/10/2012 Office visit Kaylynn Mendez GASKET MAKER 10/03/2012 Office visit Kaylynn Andrea GASKET MAKER 09/26/2012 Office visit Kaylynn Mendez GASKET MAKER 09/06/2012 Office visit Kaylynn Mendez GASKET MAKER 09/06/2012 Office visit Odell Tierney MD 08/31/2012 Voided Kaylynn Mendez GASKET MAKER 07/28/2012 Office visit Kaylynn Mendez GASKET MAKER 07/27/2012 Office visit David Joyner DO 07/20/2012 [facility] David Joyner DO 07/13/2012 Hospital David Joyner DO 07/11/2012 Office visit Kaylynn Mendez GASKET MAKER 06/27/2012 [facility] Odell Tierney MD 06/21/2012 Office visit David Joyner DO 06/21/2012 Office visit Odell Tierney MD 06/20/2012 Office visit Brittni Yanez GASKET MAKER 06/06/2012 Office visit Odell Tierney MD 05/03/2012 Office visit Kaylynn Mendez GASKET MAKER 04/28/2012 Office visit Brittni Yanez GASKET MAKER 04/11/2012 Office visit Kaylynn Mendez GASKET MAKER 04/06/2012 Hospital John Hoskins MD 03/30/2012 Office visit Kaylynn Mendez GASKET MAKER 03/15/2012 Office visit Kaylynn Mendez GASKET MAKER 03/15/2012 Office visit Odell Tierney MD 02/09/2012 Office visit Kaylynn Mendez GASKET MAKER 12/23/2011 Office visit Kaylynn Mendez GASKET MAKER 11/02/2011 Office visit Kaylynn Walker GASKET MAKER 10/14/2011 Office visit Kaylynn Walker GASKET MAKER 09/27/2011 Office visit Kaylynn Walker GASKET MAKER 08/19/2011 Hospital John Hoskins MD 08/18/2011 Hospital John Hoskins MD 08/18/2011 Office visit Kaylynn Mendez GASKET MAKER 08/02/2011 Office visit Kaylynn Mendez GASKET MAKER 07/08/2011 Office visit Kaylynn Mendez GASKET MAKER 07/05/2011 Office visit Odell Tierney MD 06/15/2011 Office visit Kaylynn Mendez GASKET MAKER 05/14/2011 Office visit Kaylynn Andrea GASKET MAKER 05/11/2011 Office visit Odell Tierney MD 04/28/2011 Office visit Kaylynn Mendez GASKET MAKER 03/02/2011 Office visit Chadd Norris DO [...]
--- OUTSIDE RECORDS SUMMARY | 2018-05-10 07:30 | XMS REPORT ---
Author Author SUMMER LY [facility] Address [address] [place] [address] Care Team Providers Care Environmental Adviser Name Role Phone SUMMER LY Unavailable PROBLEMS Type Condition ICD9-CM Code QEF89-LH Code Onset Dates Condition Status SNOMED Code Problem Lumbar back pain with radiculopathy affecting left lower extremity M54.16 Active 859679394 Problem Lumbar back pain with radiculopathy affecting right lower extremity M54.16 Active 084093914 Problem Non-seasonal allergic rhinitis, unspecified trigger J30.89 Active 65739621 Problem Moderate persistent asthma without complication J45.40 Active 848234723 Problem Body mass index (BMI) of 40.0-44.9 in adult Z68.41 Active 953520761 Problem Morbid (severe) obesity due to excess calories E66.01 Active 71130578999014 Problem Osteogenesis imperfecta Q78.0 Active 24359137 Problem Cervical spinal stenosis M48.02 Active 74606185 Problem Fibromyalgia M79.7 Active 775125850 Problem Sinus tachycardia R00.0 Active 55002284 Problem Lumbago with sciatica, left side M54.42 Active 070502407 Problem Migraine with aura and without status migrainosus, not intractable G43.109 Active 6202551 Problem Mixed hyperlipidemia E78.2 Active 506188912 Problem Hypertriglyceridemia E78.1 Active 132978025 Problem Rhinosinusitis J32.9 Active 75131183 Problem Chronic pain syndrome G89.4 Active 536530206 Problem Other chronic pain G89.29 Active 78988437 Problem Type 2 diabetes mellitus without complications E11.9 Active 854330980 Problem Cervicalgia M54.2 Active 59738212 Problem Lichen sclerosus L90.0 Active 49102993 Problem Leukocytosis, unspecified type D72.829 Active 283603276 Problem Myofascial pain syndrome M79.1 Active 174207133 Problem Conversion disorder F44.9 Active 92120260 Problem Interstitial cystitis N30.10 Active 572802824 Problem AARON (nonalcoholic steatohepatitis) K75.81 Active 239451671 Problem terminologist current use of insulin Z79.4 Active 118179163 Problem Bipolar 1 disorder F31.9 Active 931202920 Problem Tobacco use disorder F17.200 Active 772038634 Problem Benign essential hypertension I10 Active 8709379 Problem Osteoporosis, unspecified osteoporosis type, unspecified pathological fracture presence M81.0 Active 30928640 Problem Polypharmacy Z79.899 Active 698975468 ALLERGIES Substance Reaction Event Type Date Status Vicodin nausea and vomiting Drug Allergy Mar, Active Lyrica Unknown Drug Allergy Mar, Active Januvia pancreatitis Drug Allergy Mar, Active Bactrim rash Drug Allergy Mar, Active Aspirin abdominal pain Drug Allergy Mar, Active Tramadol Unknown Drug Allergy Mar, Active Methadone Unknown Drug Allergy Mar, Active ENCOUNTERS Encounter Location Date Diagnosis [facility] [address] [id number] [place] [address] Mar [facility] [address] [id number] [place] [address] Mar Bronchitis J40 ; Lumbar spine pain M54.5 and Nausea and vomiting in adult R11.2 [facility] [address] [id number] [place] [address] Mar [facility] [address] [id number] [address] Mar, [facility] [address] [id number] [place] [address] Mar Lumbar spine pain M54.5 and Acute sinusitis, unspecified J01.90 [facility] [address] [facility] [id number] [address] Mar, [facility] [address] [id number] [place] [address] Mar Type 2 diabetes mellitus without complications E11.9 ; Osteogenesis imperfecta Q78.0 ; Osteoporosis, unspecified osteoporosis type, unspecified pathological fracture presence M81.0 ; Lichen sclerosus L90.0 ; Cervicalgia M54.2 ; Lumbago with sciatica, left side M54.42 ; Conversion disorder F44.9 and Myofascial pain syndrome M79.1 [address] [address] Feb, Conversion disorder F44.9 [facility] [address] [id number] [place] [address] Feb Type 2 diabetes mellitus without complications E11.9 [place] [address]00565100[place], [place] [address] Feb, [facility] [address] [id number] [place] [address] Feb Chronic pain syndrome G89.4 ; Conversion disorder F44.9 and Bipolar 1 disorder F31.9 [facility] [address] [id number] [place] [address] Feb Chronic pain syndrome G89.4 ; Osteogenesis imperfecta Q78.0 ; Migraine with aura and without status migrainosus, not intractable G43.109 ; Cervical spinal stenosis M48.02 ; Lumbar back pain with radiculopathy affecting left lower extremity M54.16 ; Lumbar back pain with radiculopathy affecting right lower extremity M54.16 and Conversion disorder F44.9 [place] [address] [id number], [place] [address] Feb, [facility] [address] [id number] [place] [address] Jan [facility] [address] [id number] [place] [address] Jan Nausea and vomiting in adult R11.2 ; Fever in other diseases R50.81 and Diarrhea of presumed infectious origin R19.7 [place] [address] [id number] [address] Jan, [place] [address] [id number] [address] Jan, [facility] [address] [id number] [place] [address] Jan [facility] [address] [id number] [place] [address] Jan Polyarthralgia M25.50 ; Acute pharyngitis due to other specified organisms J02.8 ; Other viral agents as the cause of diseases classified elsewhere B97.89 and Fever, unspecified fever cause R50.9 [address]00565100[place], [place] [address] 17 Jan, 2018 Type 2 diabetes mellitus without complications E11.9 [facility] [address] [id number] [place] [address] Jan [facility] [address] [id number] [place] [address] Jan Migraine with aura and without status migrainosus, not intractable G43.109 and Tendinitis of right forearm M77.9 [facility] [employer] [address] [id number] [place] [address] Jan [facility] [address] [id number] [place] [address] Dec 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 ; Adverse effect of unspecified drugs, medicaments and biological substances, initial encounter T50.905A ; Myofascial pain syndrome M79.1 ; Non-intractable vomiting with nausea, unspecified vomiting type R11.2 ; Polypharmacy Z79.899 and BMI 40.0-44.9, adult Z68.41 [place] [address]00565100[place], [place] [address] Dec, Conversion disorder F44.9 and BMI 40.0-44.9, adult Z68.41 [place] [address] [place] [address] Dec, [facility] [address] [id number] [place] [address] Dec [place] [id number] [place] [address] Dec, [facility] [address] [id number] [place] [address] Dec Type 2 diabetes mellitus without complications E11.9 and BMI 40.0-44.9, adult Z68.41 [facility] [address] [id number] [place] [address] Nov [facility] [address] [id number] [place] [address] Nov [facility] [address] [id number] [place] [address] Nov Migraine with aura and without status migrainosus, not intractable G43.109 ; Hypertriglyceridemia E78.1 ; AARON (nonalcoholic steatohepatitis) K75.81 ; Type 2 diabetes mellitus without complications E11.9 ; Leukocytosis, unspecified type D72.829 ; Cervical spinal stenosis M48.02 ; Lumbar back pain with radiculopathy affecting left lower extremity M54.16 ; Lumbar back pain with radiculopathy affecting right lower extremity M54.16 and BMI 40.0-44.9, adult Z68.41 [facility] [address]00565100[place], [place] [address] Nov, Other chronic pain G89.29 [facility] [address] [id number] [place] [address] Nov Moderate persistent asthma with exacerbation J45.41 ; Acute bronchitis due to other specified organisms J20.8 ; Tobacco use disorder F17.200 ; Benign essential hypertension I10 ; Hyperlipidemia, unspecified hyperlipidemia type E78.5 ; Fibromyalgia M79.7 ; Interstitial cystitis N30.10 ; Polypharmacy Z79.899 ; Other chronic pain G89.29 ; Non-seasonal allergic rhinitis, unspecified trigger J30.89 and BMI 40.0-44.9, adult Z68.41 [facility] [address] [id number] [address] Nov, Other chronic pain G89.29 ; Fibromyalgia M79.7 ; Bipolar 1 disorder F31.9 and BMI 40.0-44.9, adult Z68.41 [facility] [address] [id number] [place] [address] 21 Oct, 2017 Other chronic pain G89.29 [facility] [address] [id number], [place] [address] 15 Oct, 2017 Type 2 diabetes mellitus without complications E11.9 and Other chronic pain G89.29 [facility] [address] [id number], [place] [address] 14 Oct, 2017 Type 2 diabetes mellitus without complications E11.9 ; terminologist current use of insulin Z79.4 ; Obesity, morbid, BMI 40.0-49.9 E66.01 ; Osteogenesis imperfecta Q78.0 ; Lumbago with sciatica, left side M54.42 ; Other chronic pain G89.29 ; Interstitial cystitis N30.10 ; AARON ( nonalcoholic steatohepatitis) K75.81 ; Bipolar 1 disorder F31.9 ; Palpitations R00.2 ; Osteoporosis, unspecified osteoporosis type, unspecified pathological fracture presence M81.0 ; Allergic state, sequela T78.40XS ; Fibromyalgia M79.7 ; Asthma, unspecified asthma severity, unspecified whether complicated, unspecified whether persistent J45.909 ; Pedal edema R60.0 ; Hyperlipidemia, unspecified hyperlipidemia type E78.5 and BMI 40.0-44.9, adult Z68.41 [place] [address]00565[address], [place] [address] Aug, [facility] [address] [id number], [place] [address] Aug, [facility] [address] [place] [address] September, [facility] [address] [place] [address] September, [facility] [address]00565100[place], [place] [address] Aug, [place] [address] [id number] [place] [address] Aug, [facility] [place] [facility] [address] [id number] [place] [address] Jul, [facility] [place] [facility] [address] [id number] [place] [address] Jul, [facility] [place] [facility] [address] [id number] [place] [address] Jun, [facility] [place] [facility] [address] [id number] [place] [address] Jun, [facility] [place] [facility] [address] [id number] [place] [address] Jun, [facility] [place] [facility] [address] [id number] [place] [address] Jun, [facility] [place] [facility] [address] [id number] [place] [address] Jun, [facility] [place] [facility] [address] [id number] [place] [address] Jun, [facility] [place] [facility] [address] [id number] [place] [address] May, [facility] [place] [facility] [address] [id number] [place] [address] May, [facility] [place] [facility] [address] [id number] [place] [address] May, [facility] [place] [facility] [address] [id number] [place] [address] May, [facility] [place] [facility] [address] [id number] [place] [address] May, [facility] [place] [facility] [address] [id number] [place] [address] May, [facility] [place] [facility] [address] [id number], [place] [address] May, [facility] [address] [id number] [place] [address] May, [facility] [place] [facility] [address] [id number] [place] [address] Apr, [facility] [place] [facility] [address] [id number] [place] [address] Apr, [facility] [place] [facility] [address] [id number] [place] [address] Apr, [facility] [place] [facility] [address] [id number] [place] [address] Apr, [facility] [place] [facility] [address] [id number] [place] [address] Apr, [facility] [place] [facility] [address] [id number] [place] [address] Mar, [facility] [place] [facility] [address] [id number] [place] [address] Mar, [facility] [place] [facility] [address] [id number] [place] [address]- [address] Mar, [facility] [place] [facility] [address] [id number] [place] [address] Mar, [facility] [place] [facility] [address] [id number], [place] [address] Mar, [facility] [place] [facility] [address] [id number], [place] [address] 19 Mar, 2013 [facility] [place] [facility] [address] [id number], [place] [address] 18 Mar, 2013 [facility] [place] [facility] [address] [id number], [place] [address] 18 Mar, 2013 [facility] [place] [facility] [address] [id number], [place] [address] 14 Mar, 2013 [facility] [place] [facility] [address] [id number] [place] [address]- [address] 14 Mar, 2013 [facility] [address] [id number] [place] [address]- [address] 12 Mar, 2013 [facility] [place] [facility] [address] [id number] [place] [address]- [address] 12 Mar, 2013 [facility] [address] [id number] [place] [address]- [address] 07 Mar, 2013 [facility] [place] [facility] [address] [id number] [place] [address]- [address] 07 Mar, 2013 [facility] [address] [id number] [place] [address]- 35[address] 06 Mar, 2013 [facility] [place] [facility] [address] [id number] [place] [address]- [address] Mar, [facility] [place] [facility] [address] [id number] [place] [address] Mar, [facility] [address] [id number] [place] [address]- [address] Mar, [facility] [place] [facility] [address] [id number] [place] [address]- [address] Feb, [facility] [address] [id number] [place] [address]- [address] Feb, [facility] [place] [facility] [address] [id number] [place] [address]- [address] Feb, [facility] [place] [facility] [address] [id number] [place] [address]- [address] Feb, [facility] [place] [facility] [address] [id number] [place] [address]- 136[address] Feb, [facility] [place] [facility] [address] [id number] [place] [address]- [address] Feb, [facility] [place] [facility] [address] [id number] [place] [address]- [address] Feb, [facility] [address] [id number], [place] [address] Feb, [facility] [address], [place] [address] Feb, [facility] [address], [place] [address] Feb, [facility] [address] [id number], [place] [address] 15 Feb, 2013 [facility] [address], [place] [address] 14 Feb, 2013 [facility] [address] [place] [address] 26 Jan, 2013 [facility] [address] [place] [address] 25 Jan, 2013 [facility] [address] [place] [address] 24 Jan, 2013 [facility] [address], [place] [address] 23 Jan, 2013 [facility] [address], [place] [address] 20 Jan, 2013 [facility] [address], [place] [address]- [address] 19 Jan, 2013 [facility] [address], [place] [address] 18 Jan, 2013 IMMUNIZATIONS No Known Immunizations SOCIAL HISTORY Never Assessed REASON FOR VISIT Pt present to establish care. PRADIP Ríos PLAN OF CARE Activity Details Follow Up prn Reason: VITAL SIGNS Height 53.5 in 2018-04-06 Weight 162 lbs 2018-04-06 Temperature 97.5 degrees Fahrenheit 2018-04-06 Heart Rate 95 bpm 2018-04-06 Respiratory Rate 18 2018-04-06 Oximetry 96 % 2018-04-06 BMI 39.79 kg/m2 2018-04-06 Blood pressure systolic 122 mmHg 2018-04-06 Blood pressure diastolic 80 mmHg 2018-04-06 MEDICATIONS Medication Instructions Dosage Frequency Start Date End Date Duration Status Magnesium 200 MG Orally Once a day 2 tablets with a meal 24h Active Vraylar 3 MG Orally Once a day 1 capsule 24h 30 day(s) Active Reclast 5 MG/100ML Intravenous Once per year as directed 1 dose Active Fish Oil 1200 MG Orally Once a day 1 capsule 24h Active Ondansetron HCl 4 MG Orally every 8 hours as needed for nausea 1 tablet Jan, Active Benadryl 25 MG Orally every 8 hrs 1 capsule as needed 8h Active Nortriptyline HCl 10 mg Orally Once a day at bedtime 5 capsules 30 days Active Fenofibrate 145 MG Orally Once a day 1 tablet with food 24h 90 days Active Atorvastatin Calcium 80 MG Orally Once a day 1 tablet 24h 30 days Active PredniSONE 20 mg Orally Once a day 2 tablets 24h Mar, Mar, 5 days Active Ventolin HFA 108 (90 Base) MCG/ACT Inhalation every 6 hrs 2 puffs as needed 6h Active Vitamin D-3 5000 UNIT Orally Once a day 1 tablet 24h Active Bumetanide 1 MG Orally Once a day 1 tablet 24h 30 days Active Percocet 5-325 MG Orally every 6 hrs 1 tablet as needed 6h Mar, Mar, 5 days Active Montelukast Sodium 10 mg Orally Once a day 1 tablet 24h 30 days Active MetFORMIN HCl ER 500 mg Orally twice a day Take 2 with breakfast and 2 with supper. 12h Jan, Active Cymbalta 30 MG Orally Once a day 1 capsule 24h Active Flomax 0.4 MG Orally Once a day 1 capsule 24h Active Myrbetriq 25 MG Orally Once a day 1 tablet 24h 30 days Active Vitamin C & E Complex 6,000mg by oral route Once a day 1 tablet 24h Active NovoLog 100 UNIT/ML Subcutaneous At Meals 25 units Active Rozerem 8 MG Orally Once a day 1 tablet at bedtime as needed 24h Active Metoprolol Succinate ER 100 MG Orally Once a day 1 tablet 24h 30 days Active Lantus 100 UNIT/ML Subcutaneous 2 times a day 35 units daily 12h 30 days Active Cetirizine HCl 10 MG Orally Once a day 1 tablet 24h Active Sumatriptan Succinate 100 mg Orally once 1 tablet at the start of a migraine ; may take another one an hour later if needed 1 dose Active RESULTS Name Result Date Reference Range A1C (IN HOUSE) 2018-04-06 A1C IN HOUSE 9.0 4.3 - 5.6 % Previous A1c Lot [id number] Exp date 12/2019 PROCEDURES Procedure Date Ordered Result Body Site GLYCATED HEMOGLOBIN TEST Apr 06, 2018 [facility] VISIT ESTABLISHED PATIENT Apr 06, 2018 INSTRUCTIONS MEDICATIONS ADMINISTERED No Known Medications MEDICAL (GENERAL) HISTORY Type Description Date Medical History Osteogenesis Imperfecta Type 4 Medical History Hypertension Medical History Type 2 Diabetes Mellitus: A1c 09/22/2016: 6.2. A1c 12/19/17: 8.1 Medical History Tachycardia Medical History Osteoarthritis Medical History Osteoporosis Medical History Lichen sclerosis Medical History Migraine Medical History Cervical spinal stenosis Medical History Obesity Medical History Anxiety disorder Medical History Cyst inside bladder Medical History Chronic neck pain with cervical radiculopathy Medical History Chronic low back pain with lumbar radiculopathy Medical History Dyskinesia of esophagus Medical History Chronic pain syndrome Medical History Mild persistent asthma Medical History Tobacco Use Disorder Medical History Nonalcoholic fatty liver disease: Liver panel 08/15/17: AST 44 , alkaline phosphatase 89. Liver panel 12/19/17: AST 41, ALT 54, allkaline phosphatase 163, GGT 199. Medical History History of colon polyps Medical History Alcohol Use Disorder In Remission Medical History Mixed hyperlipidemia Medical History Hypertriglyceridemia Medical History Vitamin D deficiency: Vitamin D level 09/22/2016: 62.6 Medical History Mobility Deficits: Uses cane, walker, and occasionally a wheelchair Medical History Chronic leukocytosis Medical History Cervical cancer Medical History Ovarian cancer Medical History Bipolar disorder Medical History Conversion disorder Medical History Hypoparathyroidism Medical History Edentulous: lost teeth at age 23 Medical History Palpitations Medical History Aseptic meningitis 12/2017 Medical History PFTs 06/03/2014: FVC 3.22 L, FEV1 2.70 L, FEV1/FVC ratio 84% ( 101% predicted) Medical History Colonoscopy Dr. Ford 01/12/2016: polyps Medical History CT head w/o contrast 09/09/2016: normal Medical History MRI cervical spine 05/11/2016: C6-7 spondylosis with mild central canal stenosis; C5-6 spondylosis with left neural foraminal stenosis. Study done on 07/11/17: Multilevel degenerative changes of the cervical spine most prominent at C6-7 level there there is moderate central canal stenosis. Medical History Screening mammogram 04/15/2016: no evidence of malignancy Medical History NM Bone Scan 09/30/2015: uptake in left anterolateral ribs Medical History NM Bone Scan R Foot 06/16/2015: Uptake 5th metatarsal head Medical History Video swallow 06/09/2015: Normal Medical History DEXA Studies: 06/04/2015: L-spine T-score -2.5, femoral neck T- score -2.7. 08/16/2016: Lumbar T-score -3.0, left femoral neck T-score -2.2, total left hip T-score -2.3, right femoral neck -1.9, total right hip T-score - 2.0. Medical History CXR 11/23/16: Chronic left rib fracture deformities Medical History Bilateral carotid duplex U/S 06/13/17: normal Medical History MRI brain w/ & w/o contrast: 11/18/2017 Study: Normal. Study: Punctate FLAIR hyperintensities within supratentorial white matter. Medical History AARON Fibrosure 12/23/17: AARON Score 0.50 (High) N1 probable AARON; Steatosis score 0.97 (High) S3 marked or severe steatosis; Fibrosis Score 0.16 (Normal) F0 No Fibrosis Medical History Inpatient Video EEG 01/14/18 to 01/15/18: mild to moderate encephalopathy; no epileptiform activity is noted Surgical History Tonsillectomy Surgical History Exploratory laparoscopy September 1997 Surgical History LEEP 1999 Surgical History Hydrodistension of bladder, cystoscopy, bladder biopsy Surgical History Exploratory laparoscopy Surgical History Hydrodistension of bladder, cystoscopy, bladder biopsy September 2007 Surgical History LAVH/Appendectomy October 2009 Surgical History Cholecystectomy September 2012 Surgical History Laparoscopic [place] Fundoplication Surgical History Cystoscopy/Bilateral retrograde pyelogram July 2017 Surgical History Left L4-5 transforaminal epidural steroid injection Surgical History C6-7 interlaminar epidural steroid injection 11/05/2016 Hospitalization History Operative procedures Hospitalization History Aseptic meningitis at [facility] 01/13/18 to 01/20/18
--- OUTSIDE RECORDS SUMMARY | 2018-05-10 07:30 | XMS REPORT ---
Author Author SUMMER [facility] Address [address] [place] [address] Care Team Providers Care [employer] Name Role Phone SUMMER LY Unavailable PROBLEMS Type Condition ICD9-CM Code LWG34-GE Code Onset Dates Condition Status SNOMED Code Problem Lumbar back pain with radiculopathy affecting left lower extremity M54.16 Active 735749934 Problem Lumbar back pain with radiculopathy affecting right lower extremity M54.16 Active 770716479 Problem Non-seasonal allergic rhinitis, unspecified trigger J30.89 Active 66379258 Problem Moderate persistent asthma without complication J45.40 Active 093566934 Problem Body mass index (BMI) of 40.0-44.9 in adult Z68.41 Active 467223056 Problem Morbid (severe) obesity due to excess calories E66.01 Active [id number] Problem Osteogenesis imperfecta Q78.0 Active 37030268 Problem Cervical spinal stenosis M48.02 Active 14095969 Problem Fibromyalgia M79.7 Active 358397302 Problem Sinus tachycardia R00.0 Active 61951743 Problem Lumbago with sciatica, left side M54.42 Active 126979216 Problem Migraine with aura and without status migrainosus, not intractable G43.109 Active 6632576 Problem Mixed hyperlipidemia E78.2 Active 475215673 Problem Hypertriglyceridemia E78.1 Active 155960482 Problem Rhinosinusitis J32.9 Active 36127231 Problem Chronic pain syndrome G89.4 Active 060343402 Problem Other chronic pain G89.29 Active 81623631 Problem Type 2 diabetes mellitus without complications E11.9 Active 016634762 Problem Cervicalgia M54.2 Active 30036383 Problem Lichen sclerosus L90.0 Active 84419966 Problem Leukocytosis, unspecified type D72.829 Active 105718006 Problem Myofascial pain syndrome M79.1 Active 205136894 Problem Conversion disorder F44.9 Active 34484385 Problem Interstitial cystitis N30.10 Active 741786734 Problem AARON (nonalcoholic steatohepatitis) K75.81 Active 684287856 Problem 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 [facility] [employer] [employer] [address] [id number] [place] [address] Mar Bronchitis J40 ; Lumbar spine pain M54.5 and Nausea and vomiting in adult R11.2 [facility] [address] [id number] [place] [address] Mar [place] [address] [place] [address] Mar, [facility] [employer] [address] [id number] [place] [address] Mar Lumbar spine pain M54.5 and Acute sinusitis, unspecified J01.90 [place] [address] [place] [id number] [place] [address] Mar, [facility] [employer] [address] [id number] [place] [address] Mar Type 2 diabetes mellitus without complications E11.9 ; Osteogenesis imperfecta Q78.0 ; Osteoporosis, unspecified osteoporosis type, unspecified pathological fracture presence M81.0 ; Lichen sclerosus L90.0 ; Cervicalgia M54.2 ; Lumbago with sciatica, left side M54.42 ; Conversion disorder F44.9 and Myofascial pain syndrome M79.1 [facility] [address] [address] Feb, Conversion disorder F44.9 [facility] [place] [address] [id number] [place] [address] Feb Type 2 diabetes mellitus without complications E11.9 [place] [address] [id number] [address] Feb, [facility] [place] [address] [id number] [place] [address] Feb Chronic pain syndrome G89.4 ; Conversion disorder F44.9 and Bipolar 1 disorder F31.9 [facility] [place] [address] [id number] [place] [address] 08 Feb Chronic pain syndrome G89.4 ; Osteogenesis imperfecta Q78.0 ; Migraine with aura and without status migrainosus, not intractable G43.109 ; Cervical spinal stenosis M48.02 ; Lumbar back pain with radiculopathy affecting left lower extremity M54.16 ; Lumbar back pain with radiculopathy affecting right lower extremity M54.16 and Conversion disorder F44.9 [place] [address] [facility] [id number] [address] Feb, [facility] [place] [address] [id number] [place] [address] Jan [facility] [place] [address] [id number] [place] [address] Jan Nausea and vomiting in adult R11.2 ; Fever in other diseases R50.81 and Diarrhea of presumed infectious origin R19.7 [place] [address] [place] [address] [id number] [address] Jan, [place] [address] [facility] [id number] [address] Jan, [facility] [place] [address] [id number] [place] [address] Jan [facility] [place] [address] [id number] [place] [address] Jan Polyarthralgia M25.50 ; Acute pharyngitis due to other specified organisms J02.8 ; Other viral agents as the cause of diseases classified elsewhere B97.89 and Fever, unspecified fever cause R50.9 [facility] [address] [address] Jan, Type 2 diabetes mellitus without complications E11.9 [facility] [place] [address] [id number] [place] [address] Jan [facility] [place] [address] [id number] [place] [address] Jan Migraine with aura and without status migrainosus, not intractable G43.109 and Tendinitis of right forearm M77.9 [facility] [address] [id number] [place] [address] Jan [facility] [address] [id number] [place] [address] Dec 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 ; Adverse effect of unspecified drugs, medicaments and biological substances, initial encounter T50.905A ; Myofascial pain syndrome M79.1 ; Non-intractable vomiting with nausea, unspecified vomiting type R11.2 ; Polypharmacy Z79.899 and BMI 40.0-44.9, adult Z68.41 [place] [address] [address] Dec, Conversion disorder F44.9 and BMI 40.0-44.9, adult Z68.41 [place] [address] [address] Dec, [facility] [place] [address] [id number] [place] [address] Dec [place] [address] [place] [id number] [address] Dec, [facility] [place] [address] [id number] [place] [address] Dec Type 2 diabetes mellitus without complications E11.9 and BMI 40.0-44.9, adult Z68.41 [facility] [address] [id number] [place] [address] Nov [facility] [address] [id number] [place] [address] Nov [facility] [place] [address] [id number] [place] [address] Nov Migraine with aura and without status [...] extremity M54.16 and BMI 40.0-44.9, adult Z68.41 [facility] [address] [facility] [id number] [address] Nov, Other chronic pain G89.29 [facility] [place] [address] [id number] [place] [address] Nov Moderate persistent asthma with exacerbation J45.41 ; Acute bronchitis due to other specified organisms J20.8 ; Tobacco use disorder F17.200 ; Benign essential hypertension I10 ; Hyperlipidemia, unspecified hyperlipidemia type E78.5 ; Fibromyalgia M79.7 ; Interstitial cystitis N30.10 ; Polypharmacy Z79.899 ; Other chronic pain G89.29 ; Non-seasonal allergic rhinitis, unspecified trigger J30.89 and BMI 40.0-44.9, adult Z68.41 [facility] [address] [id number] [address] Nov, Other chronic pain G89.29 ; Fibromyalgia M79.7 ; Bipolar 1 disorder F31.9 and BMI 40.0-44.9, adult Z68.41 [facility] [address] [id number], [place] [address] Oct, Other chronic pain G89.29 [facility] [address] [id number], [place] [address] 15 Oct, 2017 Type 2 diabetes mellitus without complications E11.9 and Other chronic pain G89.29 [facility] [address] [id number] [address] 14 Oct, 2017 Type 2 diabetes mellitus without complications E11.9 ; alf current use of insulin Z79.4 ; Obesity, [...] type E78.5 and BMI 40.0-44.9, adult Z68.41 [facility] [id number] [place] [address] Aug, [facility] [id number] [place] [address] Aug, [facility] [address] [place] [address] September, [facility] [address] [place] [address] September, [facility] [address] [place] [address] Aug, [facility] [id number] [place] [address] Aug, [facility] [address] [place] [address] Jul, [facility] [id number] [place] [address] Jul, [facility] [address] [id number] [place] [address] Jun, [facility] [place] [facility] [address] [id number] [place] [address] Jun, [facility] [place] [facility] [address] [id number] [place] [address] Jun, [facility] [place] [facility] [address] [id number] [place] [address] Jun, [facility] [place] [facility] [address] [id number] [place] [address] Jun, [facility] [place] [facility] [address] [id number] [place] [address] Jun, [facility] [address] [id number] [place] [address] May, [facility] [place] [facility] [address] [id number] [place] [address] May, [facility] [place] [facility] [address] [id number] [place] [address] May, [facility] [place] [facility] [address] [facility] [id number] [place] [address] May, [facility] [place] [facility] [address] [id number] [place] [address] May, [facility] [place] [facility] [address] [id number] [place] [address] May, [facility] [place] [facility] [address] [id number] [place] [address] May, [facility] [place] [facility] [address] [id number] [place] [address] May, [facility] [place] [facility] [address] [id number] [place] [address] Apr, [facility] [place] [facility] [address] [id number] [place] [address] 30 Apr, 2013 [facility] [place] [facility] [address] [id number] [place] [address] 30[address] Apr, [facility] [place] [facility] [address] [id number] [place] [address] 2540 Apr, [facility] [place] [facility] [address] [id number] [place] [address] 6[address] Apr, [facility] [place] [facility] [address] [id number] [place] [address] Mar, [facility] [place] [facility] [address] [id number] [place] [address] 78[address] Mar, [facility] [place] [facility] [address] [id number] [place] [address] 35[address] Mar, [facility] [place] [facility] [address] [id number] [place] [address] 27[address] Mar, [facility] [place] [facility] [address] [id number] [place] [address] 9[address] Mar, [facility] [place] [facility] [address] [id number] [place] [address] Mar, [facility] [place] [facility] [address] [id number] [place] [address]- 7[address] 18 Mar, 2013 [facility] [place] [facility] [address] [id number] [place] [address] 18 Mar, 2013 [facility] [place] [facility] [address] [id number] [place] [address] 14 Mar, 2013 [facility] [place] [facility] [address] [id number] [place] [address] 84[address] 14 Mar, 2013 [facility] [place] [facility] [address] [id number] [place] [address]- 47[address] 12 Mar, 2013 [facility] [place] [facility] [address] [id number] [place] [address]- [address] Mar, [facility] [place] [facility] [address] [id number] [place] [address] 5[address] Mar, [facility] [place] [facility] [address] [id number] [place] [address] 1729 Mar, [facility] [place] [facility] [address] [id number] [place] [address] 2523 Mar, [facility] [place] [facility] [address] [id number] [place] [address]- 2636 Mar, [facility] [place] [facility] [address] [id number] [place] [address]- 8[address] Mar, [facility] [place] [facility] [address] [id number] [place] [address]- 0546 Mar, [facility] [place] [facility] [address] [id number] [place] [address]- 22[address] Feb, [facility] [place] [facility] [address] [id number] [address] Feb, [facility] [place] [facility] [address] [id number] [address] Feb, [facility] [place] [facility] [address] [id number] [address] Feb, [facility] [place] [facility] [address] [id number] [address]- [address] Feb, [facility] [place] [facility] [address] [id number] [address] Feb, [facility] [place] [facility] [address] [id number] [address] Feb, [facility] [place] [facility] [address] [id number] [address] Feb, [facility] [place] [facility] [address] [id number] [address] Feb, [facility] [place] [facility] [address] [place] [address] [id number] [address] 15 Feb, 2013 [facility] [address] [address] 15 Feb, 2013 [facility] [address] [address] 14 Feb, 2013 [facility] [address] [address] 26 Jan, 2013 [facility] [address] [address] 25 Jan, 2013 [facility] [address] [place] [address]- [address]87 24 Jan, 2013 [facility] [address] [address] 23 Jan, 2013 [facility] [address] [address] 20 Jan, 2013 [facility] [address] [address] 19 Jan, 2013 [facility] [address], [place] [address]- [address] 18 Jan, 2013 IMMUNIZATIONS No Known Immunizations SOCIAL HISTORY Never Assessed REASON FOR VISIT Requests return call PLAN OF CARE VITAL SIGNS MEDICATIONS Unknown Medications RESULTS No Results PROCEDURES No Known procedures INSTRUCTIONS MEDICATIONS ADMINISTERED No Known Medications MEDICAL [...] procedures Hospitalization History Aseptic meningitis at [facility] 01/13/18 to 01/20/18
--- OUTSIDE RECORDS SUMMARY | 2018-05-10 07:31 | XMS REPORT ---
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[employer] Name Role Phone SUMMER LY Unavailable PROBLEMS Type Condition ICD9-CM Code PVX83-YU Code Onset Dates Condition Status SNOMED Code Problem Lumbar back pain with radiculopathy affecting left lower extremity M54.16 Active 728276977 Problem Lumbar back pain with radiculopathy affecting right lower extremity M54.16 Active 260121518 Problem Non-seasonal allergic rhinitis, unspecified trigger J30.89 Active 40466290 Problem Moderate persistent asthma without complication J45.40 Active 418615265 Problem Body mass index (BMI) of 40.0-44.9 in adult Z68.41 Active 287285092 Problem Morbid (severe) obesity due to excess calories E66.01 Active 57912820983734 Problem Osteogenesis imperfecta Q78.0 Active 16268137 Problem Cervical spinal stenosis M48.02 Active 65432510 Problem Fibromyalgia M79.7 Active 390039002 Problem Sinus tachycardia R00.0 Active 61857840 Problem Lumbago with sciatica, left side M54.42 Active 060303224 Problem Migraine with aura and without status migrainosus, not intractable G43.109 Active 3493299 Problem Mixed hyperlipidemia E78.2 Active 706023686 Problem Hypertriglyceridemia E78.1 Active 935334683 Problem Rhinosinusitis J32.9 Active 71826055 Problem Chronic pain syndrome G89.4 Active 313041339 Problem Other chronic pain G89.29 Active 79086252 Problem Type 2 diabetes mellitus without complications E11.9 Active 893862075 Problem Cervicalgia M54.2 Active 12646220 Problem Lichen sclerosus L90.0 Active 65672137 Problem Leukocytosis, unspecified type D72.829 Active 848579968 Problem Myofascial pain syndrome M79.1 Active 517223951 Problem Conversion disorder F44.9 Active 21748968 Problem Interstitial cystitis N30.10 Active 083272541 Problem AARON (nonalcoholic steatohepatitis) K75.81 Active 876541199 Problem 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 Active 102636504 Problem Bipolar 1 disorder F31.9 Active 135333461 Problem Tobacco use disorder F17.200 Active 118858960 Problem Benign essential hypertension I10 Active 0493245 Problem Osteoporosis, unspecified osteoporosis type, unspecified pathological fracture presence M81.0 Active 63767534 Problem Polypharmacy Z79.899 Active 315633449 ALLERGIES No Information ENCOUNTERS Encounter Location Date Diagnosis [facility] [address] [id number] [place] [address] Mar Bronchitis J40 ; Lumbar spine pain M54.5 and Nausea and vomiting in adult R11.2 [facility] [address] [id number] [place] [address] Mar [place] [id number] [place] [address] Mar, [facility] [address] [id number] [place] [address] Mar Lumbar spine pain M54.5 and Acute sinusitis, unspecified J01.90 [place] [address] [address] Mar, [facility] [address] [id number] [place] [address] Mar Type 2 diabetes mellitus without complications E11.9 ; Osteogenesis imperfecta Q78.0 ; Osteoporosis, unspecified osteoporosis type, unspecified pathological fracture presence M81.0 ; Lichen sclerosus L90.0 ; Cervicalgia M54.2 ; Lumbago with sciatica, left side M54.42 ; Conversion disorder F44.9 and Myofascial pain syndrome M79.1 [facility] [address] [id number] [address] Feb, Conversion disorder F44.9 [facility] [address] [id number] [place] [address] Feb Type 2 diabetes mellitus without complications E11.9 [place] [address] [address] Feb, [facility] [address] [id number] [place] [address] Feb Chronic pain syndrome G89.4 ; Conversion disorder F44.9 and Bipolar 1 disorder F31.9 [facility] [address] [id number] [place] [address] Feb Chronic pain syndrome G89.4 ; Osteogenesis imperfecta Q78.0 ; Migraine with aura and without status migrainosus, not intractable G43.109 ; Cervical spinal stenosis M48.02 ; Lumbar back pain with radiculopathy affecting left lower extremity M54.16 ; Lumbar back pain with radiculopathy affecting right lower extremity M54.16 and Conversion disorder F44.9 [address] [address] Feb, [facility] [address] [id number] [place] [address] Jan [facility] [address] [id number] [place] [address] Jan Nausea and vomiting in adult R11.2 ; Fever in other diseases R50.81 and Diarrhea of presumed infectious origin R19.7 [address] [address] Jan, [place] [address] [place] [address] Jan, [facility] [address] [id number] [place] [address] Jan [facility] [address] [id number] [place] [address] Jan Polyarthralgia M25.50 ; Acute pharyngitis due to other specified organisms J02.8 ; Other viral agents as the cause of diseases classified elsewhere B97.89 and Fever, unspecified fever cause R50.[address] [id number] [place] [address] 17 Jan, 2018 Type 2 diabetes mellitus without complications E11.9 [facility] [address] [id number] [place] [address] Jan [facility] [address] [id number] [place] [address] Jan Migraine with aura and without status migrainosus, not intractable G43.109 and Tendinitis of right forearm M77.9 [facility] [address] [id number] [place] [address] Jan [facility] [address] [id number] [place] [address] Dec 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 ; Adverse effect of unspecified drugs, medicaments and biological substances, initial encounter T50.905A ; Myofascial pain syndrome M79.1 ; Non-intractable vomiting with nausea, unspecified vomiting type R11.2 ; Polypharmacy Z79.899 and BMI 40.0-44.9, adult Z68.41 [place] [address] [id number] [address] Dec, Conversion disorder F44.9 and BMI 40.0-44.9, adult Z68.41 [place] [address] [id number] [address] Dec, [facility] [address] [id number] [place] [address] Dec [place] [address] [facility] [id number] [address] Dec, [facility] [address] [id number] [place] [address] Dec Type 2 diabetes mellitus without complications E11.9 and BMI 40.0-44.9, adult Z68.41 [facility] [address] [id number] [place] [address] Nov [facility] [address] [id number] [place] [address] Nov [facility] [address] [id number] [place] [address] Nov Migraine with aura and without status [...] extremity M54.16 and BMI 40.0-44.9, adult Z68.41 [facility] [address] [facility] [id number] [address] Nov, Other chronic pain G89.29 [facility] [address] [id number] [place] [address] Nov Moderate persistent asthma with exacerbation J45.41 ; Acute bronchitis due to other specified organisms J20.8 ; Tobacco use disorder F17.200 ; Benign essential hypertension I10 ; Hyperlipidemia, unspecified hyperlipidemia type E78.5 ; Fibromyalgia M79.7 ; Interstitial cystitis N30.10 ; Polypharmacy Z79.899 ; Other chronic pain G89.29 ; Non-seasonal allergic rhinitis, unspecified trigger J30.89 and BMI 40.0-44.9, adult Z68.41 [facility] [address] [id number], [place] [address] Nov, Other chronic pain G89.29 ; Fibromyalgia M79.7 ; Bipolar 1 disorder F31.9 and BMI 40.0-44.9, adult Z68.41 [facility] [address] [id number], [place] [address] Oct, Other chronic pain G89.29 [facility] [address] [id number], [place] [address] Oct, Type 2 diabetes mellitus without complications E11.9 and Other chronic pain G89.29 [facility] [address] [id number], [place] [address] 14 Oct, 2017 Type 2 diabetes mellitus without complications E11.9 ; 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 ; Obesity, [...] type E78.5 and BMI 40.0-44.9, adult Z68.41 [place] [address] [place] [address] Aug, [facility] [address] [address] Aug, [facility] [address] [address] September, [facility] [address] [address] September, [facility] [address], [place] [address] Aug, [facility] [address], [place] [address] Aug, [facility] [id number] [place] [address] Jul, [facility] [address] [address] Jul, [facility] [address] [place] [address] Jun, [facility] [place] [facility] [address] [id number] [place] [address] Jun, [facility] [place] [facility] [address] [id number] [place] [address] Jun, [facility] [place] [facility] [address] [id number] [place] [address] Jun, [facility] [place] [facility] [address] [id number] [place] [address] Jun, [facility] [place] [facility] [address] [id number] [place] [address] Jun, [facility] [place] [facility] [address] [id number] [place] [address] May, [facility] [place] [facility] [address] [id number] [place] [address] May, [facility] [place] [facility] [address] [id number] [place] [address] May, [facility] [place] [facility] [address] [id number] [place] [address] May, [facility] [place] [facility] [address] [id number] [place] [address] May, [facility] [place] [facility] [address] [id number] [place] [address] May, [facility] [place] [facility] [address] [id number] [place] [address] May, [facility] [place] [facility] [address] [id number] [place] [address] May, [facility] [place] [facility] [address] [id number] [place] [address] Apr, [facility] [place] [facility] [address] [id number] [place] [address] Apr, [facility] [place] [facility] [address] [id number] [place] [address]- [address] Apr, [facility] [place] [facility] [address] [id number] [place] [address]- [address] Apr, [facility] [place] [facility] [address] [id number] [place] [address] Apr, [facility] [place] [facility] [address] [id number] [place] [address]- 94[address] Mar, [facility] [address] [id number] [place] [address] Mar, [facility] [place] [facility] [address] [id number] [place] [address] Mar, [facility] [address] [id number] [place] [address] 47[address] Mar, [facility] [address] [id number] [place] [address]- [address] Mar, [facility] [place] [facility] [address] [id number] [place] [address]- 49[address] Mar, [facility] [place] [facility] [address] [id number] [place] [address]- 6[address] Mar, [facility] [place] [facility] [address] [id number] [place] [address]- 9[address] Mar, [facility] [place] [facility] [address] [id number] [address] Mar, [facility] [place] [facility] [address] [id number] [place] [address]- [address] Mar, [facility] [place] [facility] [address] [id number] [place] [address]- 2340 Mar, [facility] [place] [facility] [address] [id number] [place] [address]- 365[address] Mar, [facility] [place] [facility] [address] [id number] [place] [address]- [address] 07 Mar, 2013 [facility] [place] [facility] [address] [id number] [place] [address]- [address] 07 Mar, 2013 [facility] [place] [facility] [address] [id number] [place] [address]- 6[address] Mar, [facility] [place] [facility] [address] [id number] [place] [address]- 8535 Mar, [facility] [place] [facility] [address] [id number] [place] [address]- 1045 Mar, [facility] [place] [facility] [address] [id number] [place] [address]- 6[address] Mar, [facility] [place] [facility] [address] [id number] [place] [address]- 8[address] Feb, [facility] [place] [facility] [address] [id number] [place] [address]- 2099 Feb, [facility] [place] [facility] [address] [id number] [place] [address]- 6[address] Feb, [facility] [place] [facility] [address] [id number] [place] [address]- 6369 Feb, [facility] [place] [facility] [address] [id number] [place] [address]- 7[address] Feb, [facility] [place] [facility] [address] [id number], [place] [address] Feb, [facility] [place] [facility] [address] [id number], [place] [address]- [address] Feb, [facility] [place] [facility] [address] [id number] [place] [address]- 7776 Feb, [facility] [place] [facility] [address] [id number] [place] [address]- 5369 Feb, [facility] [place] [facility] [address] [id number] [place] [address]- 100[address] 15 Feb, 2013 [facility] [place] [facility] [address] [id number], [place] [address] 15 Feb, 2013 [facility] [address] [id number], [place] [address] 14 Feb, 2013 [facility] [address], [place] [address] 26 Jan, 2013 [facility] [address], [place] [address]- [address] Jan, [facility] [address], [place] [address]- [address] 24 Jan, 2013 [facility] [id number] [place] [address] Jan, [facility] [address], [place] [address] Jan, [facility] [address], [place] [address]- [address] Jan, [facility] [address] [id number], [place] [address] Jan, IMMUNIZATIONS No Known Immunizations SOCIAL HISTORY Never Assessed REASON FOR VISIT Medication refill request PLAN OF CARE VITAL SIGNS MEDICATIONS No Known Medications RESULTS No Results PROCEDURES No Known [...] procedures Hospitalization History Aseptic meningitis at [facility] 01/13/18 to 01/20/18
--- OUTSIDE RECORDS SUMMARY | 2018-05-10 07:31 | XMS REPORT ---
Author Author JUAN PABLO GALE [facility] Address [address] [place] [address] Care Team Providers Care Medicare Coordinator Name Role Phone JUAN PABLO GALE Unavailable PROBLEMS Type Condition ICD9-CM Code QVL86-[id number] Code Onset Dates Condition Status SNOMED Code Problem Lumbar back pain with radiculopathy affecting left lower extremity M54.16 Active 243139472 Problem Lumbar back pain with radiculopathy affecting right lower extremity M54.16 Active 731145340 Problem Non-seasonal allergic rhinitis, unspecified trigger J30.89 Active 56009064 Problem Moderate persistent asthma without complication J45.40 Active 773228224 Problem Body mass index (BMI) of 40.0-44.9 in adult Z68.41 Active 595706395 Problem Morbid (severe) obesity due to excess calories E66.01 Active 22245051350842 Problem Osteogenesis imperfecta Q78.0 Active 30527014 Problem Cervical spinal stenosis M48.02 Active 76637732 Problem Fibromyalgia M79.7 Active 974748632 Problem Sinus tachycardia R00.0 Active 26787809 Problem Lumbago with sciatica, left side M54.42 Active 504772223 Problem Migraine with aura and without status migrainosus, not intractable G43.109 Active 1577383 Problem Mixed hyperlipidemia E78.2 Active 196922301 Problem Hypertriglyceridemia E78.1 Active 791691283 Problem Rhinosinusitis J32.9 Active 32778688 Problem Chronic pain syndrome G89.4 Active 372389314 Problem Other chronic pain G89.29 Active 37721770 Problem Type 2 diabetes mellitus without complications E11.9 Active 522793831 Problem Cervicalgia M54.2 Active 17129928 Problem Lichen sclerosus L90.0 Active 90770913 Problem Leukocytosis, unspecified type D72.829 Active 886431853 Problem Myofascial pain syndrome M79.1 Active 711752590 Problem Conversion disorder F44.9 Active 74060492 Problem Interstitial cystitis N30.10 Active 263835612 Problem AARON (nonalcoholic steatohepatitis) K75.81 Active 192550042 Problem 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 Active 682864557 Problem Bipolar 1 disorder F31.9 Active 546168029 Problem Tobacco use disorder F17.200 Active 832627954 Problem Benign essential hypertension I10 Active 2317164 Problem Osteoporosis, unspecified osteoporosis type, unspecified pathological fracture presence M81.0 Active 29595502 Problem Polypharmacy Z79.899 Active 197280757 ALLERGIES Substance Reaction Event Type Date Status Vicodin nausea and vomiting Drug Allergy Mar, Active Lyrica Unknown Drug Allergy Mar, Active Januvia pancreatitis Drug Allergy Mar, Active Bactrim rash Drug Allergy Mar, Active Aspirin abdominal pain Drug Allergy Mar, Active Tramadol Unknown Drug Allergy Mar, Active Methadone Unknown Drug Allergy Mar, Active ENCOUNTERS Encounter Location Date Diagnosis [facility] [address] [id number] [place] [address] Mar Bronchitis J40 ; Lumbar spine pain M54.5 and Nausea and vomiting in adult R11.2 [facility] [address] [id number] [place] [address] Mar [place] [address] [address] Mar, [facility] [address] [id number] [place] [address] Mar Lumbar spine pain M54.5 and Acute sinusitis, unspecified J01.90 [facility] [place] [address] [id number] [address] Mar, [facility] [address] [id number] [place] [address] Mar Type 2 diabetes mellitus without complications E11.9 ; Osteogenesis imperfecta Q78.0 ; Osteoporosis, unspecified osteoporosis type, unspecified pathological fracture presence M81.0 ; Lichen sclerosus L90.0 ; Cervicalgia M54.2 ; Lumbago with sciatica, left side M54.42 ; Conversion disorder F44.9 and Myofascial pain syndrome M79.1 [place] [address] [id number] [address] Feb, Conversion disorder F44.9 [facility] [address] [id number] [place] [address] Feb Type 2 diabetes mellitus without complications E11.9 [place] [address] [id number] [address] Feb, [facility] [address] [id number] [place] [address] Feb Chronic pain syndrome G89.4 ; Conversion disorder F44.9 and Bipolar 1 disorder F31.9 [facility] [address] [id number] [place] [address] Feb Chronic pain syndrome G89.4 ; Osteogenesis imperfecta Q78.0 ; Migraine with aura and without status migrainosus, not intractable G43.109 ; Cervical spinal stenosis M48.02 ; Lumbar back pain with radiculopathy affecting left lower extremity M54.16 ; Lumbar back pain with radiculopathy affecting right lower extremity M54.16 and Conversion disorder F44.9 [place] [address] [id number] [address] Feb, [facility] [place] [address] [id number] [place] [address] Jan [facility] [address] [id number] [place] [address] Jan Nausea and vomiting in adult R11.2 ; Fever in other diseases R50.81 and Diarrhea of presumed infectious origin R19.7 [place] [address] [facility] [id number] [address] Jan, [place] [address] [id number] [address] Jan, [facility] [address] [id number] [place] [address] Jan [facility] [address] [id number] [place] [address] Jan Polyarthralgia M25.50 ; Acute pharyngitis due to other specified organisms J02.8 ; Other viral agents as the cause of diseases classified elsewhere B97.89 and Fever, unspecified fever cause R50.9 [facility] [place] [address] [id number] [address] Jan, Type 2 diabetes mellitus without complications E11.9 [facility] [place] [address] [id number] [place] [address] Jan [facility] [address] [id number] [place] [address] Jan Migraine with aura and without status migrainosus, not intractable G43.109 and Tendinitis of right forearm M77.9 [facility] [address] [id number] [place] [address] Jan [facility] [address] [id number] [place] [address] Dec 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 ; Adverse effect of unspecified drugs, medicaments and biological substances, initial encounter T50.905A ; Myofascial pain syndrome M79.1 ; Non-intractable vomiting with nausea, unspecified vomiting type R11.2 ; Polypharmacy Z79.899 and BMI 40.0-44.9, adult Z68.41 [place] [address] [id number] [address] Dec, Conversion disorder F44.9 and BMI 40.0-44.9, adult Z68.41 [place] [address] [id number] [address] Dec, [facility] [address] [id number] [place] [address] Dec [place] [address] [id number] [address] Dec, [facility] [address] [id number] [place] [address] Dec Type 2 diabetes mellitus without complications E11.9 and BMI 40.0-44.9, adult Z68.41 [facility] [address] [id number] [place] [address] Nov [facility] [address] [id number] [place] [address] Nov [facility] [address] [id number] [place] [address] Nov Migraine with aura and without status [...] extremity M54.16 and BMI 40.0-44.9, adult Z68.41 [facility] [place] [address] [facility] [id number] [address] Nov, Other chronic pain G89.29 [facility] [address] [id number] [place] [address] Nov Moderate persistent asthma with exacerbation J45.41 ; Acute bronchitis due to other specified organisms J20.8 ; Tobacco use disorder F17.200 ; Benign essential hypertension I10 ; Hyperlipidemia, unspecified hyperlipidemia type E78.5 ; Fibromyalgia M79.7 ; Interstitial cystitis N30.10 ; Polypharmacy Z79.899 ; Other chronic pain G89.29 ; Non-seasonal allergic rhinitis, unspecified trigger J30.89 and BMI 40.0-44.9, adult Z68.41 [facility] [address] [id number] [address] Nov, Other chronic pain G89.29 ; Fibromyalgia M79.7 ; Bipolar 1 disorder F31.9 and BMI 40.0-44.9, adult Z68.41 [facility] [address] [id number], [place] [address] 21 Oct, 2017 Other chronic pain G89.29 [facility] [address] [id number], [place] [address] 15 Oct, 2017 Type 2 diabetes mellitus without complications E11.9 and Other chronic pain G89.29 [facility] [address] [id number] [place] [address] 14 Oct, 2017 Type 2 diabetes mellitus without complications E11.9 ; MCC current use of insulin Z79.4 ; Obesity, [...] type E78.5 and BMI 40.0-44.9, adult Z68.41 [facility] [place] [id number] [place] [address] Aug, [facility] [place] [address]00565100[place] [address] Aug, [facility] [place] [id number] [place] [address] September, [facility] [place] [id number] [place] [address] September, [facility] [place] [id number] [place] [address] Aug, [facility] [place] [address]100[place] [address] Aug, [facility] [place] [address] [id number] [place] [address] Jul, [facility] [place] [facility] [address] [id number] [place] [address] Jul, [facility] [place] [facility] [address] [id number] [place] [address] Jun, [facility] [place] [facility] [address] [id number] [place] [address] Jun, [facility] [place] [facility] [address] [id number] [place] [address] Jun, [facility] [place] [facility] [address] [id number] [place] [address] Jun, [facility] [place] [facility] [address] [id number] [place] [address] Jun, [facility] [place] [facility] [address] [id number] [place] [address] Jun, [facility] [place] [facility] [address] [id number] [place] [address] May, [facility] [place] [facility] [address] [id number] [place] [address] May, [facility] [place] [facility] [address] [id number] [place] [address] May, [facility] [place] [facility] [address] [id number] [place] [address] May, [facility] [place] [facility] [address] [id number] [place] [address] May, [facility] [place] [facility] [address] [id number] [place] [address] May, [facility] [place] [facility] [address] [id number] [place] [address] May, [facility] [place] [facility] [address] [id number] [place] [address] May, [facility] [place] [facility] [address] [id number] [place] [address] Apr, [facility] [place] [facility] [address] [id number] [place] [address] Apr, [facility] [place] [facility] [address] [facility] [id number] [place] [address] Apr, [facility] [place] [facility] [address] [id number] [place] [address] Apr, [facility] [place] [facility] [address] [id number] [place] [address] 96[address] Apr, [facility] [place] [facility] [address] [id number] [place] [address] Mar, [facility] [place] [facility] [address] [id number] [place] [address] Mar, [facility] [place] [facility] [address] [id number] [place] [address] Mar, [facility] [place] [facility] [address] [id number] [address] Mar, [facility] [place] [facility] [address] [id number] [place] [address] Mar, [facility] [place] [facility] [address] [id number] [place] [address] 19 Mar, 2013 [facility] [place] [facility] [address] [id number] [address] 18 Mar, 2013 [facility] [place] [facility] [address] [id number] [address] 18 Mar, 2013 [facility] [place] [facility] [address] [id number] [place] [address] 14 Mar, 2013 [facility] [place] [facility] [address] [id number] [address] 14 Mar, 2013 [facility] [place] [facility] [address] [id number] [place] [address] 12 Mar, 2012 [facility] [place] [facility] [address] [id number] [place] [address] 7970 12 Mar, 2013 [facility] [place] [facility] [address] [id number] [place] [address] 40[address] Mar, 2012 [facility] [place] [facility] [address] [id number] [place] [address] 07 Mar, 2012 [facility] [place] [facility] [address] [id number] [place] [address] 06 Mar, 2012 [facility] [place] [facility] [address] [id number] [place] [address] Mar, 2012 [facility] [place] [facility] [address] [id number] [place] [address] Mar, [facility] [place] [facility] [address] [id number] [place] [address] Mar, [facility] [place] [facility] [address] [id number] [place] [address] Feb, [facility] [place] [facility] [address] [id number] [place] [address]- [address] Feb, [facility] [place] [facility] [address] [id number] [place] [address]- 7983 Feb, [facility] [place] [facility] [address] [id number] [place] [address] 78[address] Feb, [facility] [place] [facility] [address] [id number] [place] [address]- [address] Feb, [facility] [place] [facility] [address] [id number] [place] [address]- [address] Feb, [facility] [place] [facility] [address] [id number] [place] [address]- 4[address] Feb, [facility] [place] [facility] [address] [id number] [place] [address]- 4[address] Feb, [facility] [place] [address]005[address]100[place] [address] Feb, [facility] [place] [address]00565100[place] [address] Feb, [facility] [place] [address]00565100[place] [address] Feb, [facility] [place] [id number] [place] [address] Feb, [facility] [place] [id number] [place] [address] 26 Jan, 2013 [facility] [place] [id number] [place] [address] Jan, [facility] [place] [id number] [place] [address] 24 Jan, 2013 [facility] [place] [id number] [place] [address] 23 Jan, 2013 [facility] [place] [address] [address]- [address] 20 Jan, 2013 [facility] [place] [id number] [place] [address] 19 Jan, 2013 [facility] [place] [address] [address] 18 Jan, 2013 IMMUNIZATIONS No Known Immunizations SOCIAL HISTORY Never Assessed REASON FOR VISIT ER F/U- States she went to ER yesterday d/t dog knocking her down and injuring back. Shashi DODSON PLAN OF CARE Activity Details Follow Up prn Reason: Pending Test MRI : Lumbar w/o contrast VITAL SIGNS Height 53.5 in 2018-04-14 Temperature 98.5 degrees Fahrenheit 2018-04-14 Heart Rate 114 bpm 2018-04-14 Respiratory Rate 18 2018-04-14 Blood pressure systolic 122 mmHg 2018-04-14 Blood pressure diastolic 80 mmHg 2018-04-14 MEDICATIONS Medication Instructions Dosage Frequency Start Date End Date Duration Status Ondansetron HCl 4 MG Orally every 8 hours as needed for nausea 1 tablet Jan, Active Vitamin D-3 5000 UNIT Orally Once a day 1 tablet 24h Active Rozerem 8 MG Orally Once a day 1 tablet at bedtime as needed 24h Active Reclast 5 MG/100ML Intravenous Once per year as directed 1 dose Active Vraylar 3 MG Orally Once a day 1 capsule 24h 30 day(s) Active Myrbetriq 25 MG Orally Once a day 1 tablet 24h 30 days Active Atorvastatin Calcium 80 MG Orally Once a day 1 tablet 24h 30 days Active NovoLog 100 UNIT/ML Subcutaneous At Meals 25 units Active Fenofibrate 145 MG Orally Once a day 1 tablet with food 24h 90 days Active Metoprolol Succinate ER 100 MG Orally Once a day 1 tablet 24h 30 days Active Benadryl 25 MG Orally every 8 hrs 1 capsule as needed 8h Active Sumatriptan Succinate 100 mg Orally once 1 tablet at the start of a migraine ; may take another one an hour later if needed 1 dose Active Vitamin C & E Complex 6,000mg by oral route Once a day 1 tablet 24h Active Cymbalta 30 MG Orally Once a day 1 capsule 24h Active Bumetanide 1 MG Orally Once a day 1 tablet 24h 30 days Active Montelukast Sodium 10 mg Orally Once a day 1 tablet 24h 30 days Active Lantus SoloStar 100 UNIT/ML TAKE 42U Q A.M. 35 Active Metaxalone 800 MG Orally Three times a day 1 tablet 8h Mar, 10 days Active Fish Oil 1200 MG Orally Once a day 1 capsule 24h Active Flomax 0.4 MG Orally Once a day 1 capsule 24h Active Ventolin HFA 108 (90 Base) MCG/ACT Inhalation every 6 hrs 2 puffs as needed 6h Active MetFORMIN HCl ER 500 mg Orally twice a day Take 2 with breakfast and 2 with supper. 12h Jan, Active Nortriptyline HCl 10 mg Orally Once a day at bedtime 5 capsules 30 days Active Cetirizine HCl 10 MG Orally Once a day 1 tablet 24h Active Augmentin 875-125 MG Orally every 12 hrs 1 tablet 12h Mar, 10 day(s) Active Magnesium 200 MG Orally Once a day 2 tablets with a meal 24h Active Lantus 100 UNIT/ML Subcutaneous 2 times a day 35 units daily 12h 30 days Active RESULTS Name Result Date Reference Range MRI : Lumbar w/ & w/o Contrast PROCEDURES Procedure Date Ordered Result Body Site [facility] VISIT ESTABLISHED PATIENT Apr 14, 2018 INSTRUCTIONS MEDICATIONS ADMINISTERED No Known Medications [...] procedures Hospitalization History Aseptic meningitis at [facility] 01/13/18 to 01/20/18
--- OUTSIDE RECORDS SUMMARY | 2018-05-10 07:32 | XMS REPORT ---
Author Author [facility] Address [address] [place] [address] Care Team Providers Care Canteen Manager Name Role Phone SUMMER LY Unavailable PROBLEMS Type Condition ICD9-CM Code LSR90-NI Code Onset Dates Condition Status SNOMED Code Problem Lumbar back pain with radiculopathy affecting right lower extremity M54.16 Active 157073318 Problem Lumbar back pain with radiculopathy affecting left lower extremity M54.16 Active 375916916 Problem Non-seasonal allergic rhinitis, unspecified trigger J30.89 Active 42878635 Problem Moderate persistent asthma without complication J45.40 Active 299641696 Problem Body mass index (BMI) of 40.0-44.9 in adult Z68.41 Active 118768820 Problem Morbid (severe) obesity due to excess calories E66.01 Active 12129640504810 Problem Benign essential hypertension I10 Active 3531583 Problem Osteogenesis imperfecta Q78.0 Active 50153075 Problem Cervical spinal stenosis M48.02 Active 31714404 Problem Fibromyalgia M79.7 Active 604167291 Problem Sinus tachycardia R00.0 Active 80265582 Problem Hypertriglyceridemia E78.1 Active 590166704 Problem Migraine with aura and without status migrainosus, not intractable G43.109 Active 2294630 Problem Chronic pain syndrome G89.4 Active 729091648 Problem Myofascial pain syndrome M79.1 Active 620477853 Problem Type 2 diabetes mellitus without complications E11.9 Active 558203750 Problem Cervicalgia M54.2 Active 19411163 Problem Lumbago with sciatica, left side M54.42 Active 649089994 Problem Lichen sclerosus L90.0 Active 17982101 Problem Mixed hyperlipidemia E78.2 Active 799969188 Problem Conversion disorder F44.9 Active 92792108 Problem Leukocytosis, unspecified type D72.829 Active 950203911 Problem Bipolar 1 disorder F31.9 Active 302261106 Problem Interstitial cystitis N30.10 Active 621437344 Problem Other chronic pain G89.29 Active 44857013 Problem longterm current use of insulin Z79.4 Active 114531682 Problem Polypharmacy Z79.899 Active 221501323 Problem Tobacco use disorder F17.200 Active 292012816 Problem AARON (nonalcoholic steatohepatitis) K75.81 Active 784731006 Problem Osteoporosis, unspecified osteoporosis type, unspecified pathological fracture presence M81.0 Active 92368290 ALLERGIES No Information ENCOUNTERS Encounter Location Date Diagnosis [facility] [id number] [address] Mar, [facility] [address] [id number] [place] [address] Mar Type 2 diabetes mellitus without complications E11.9 ; Osteogenesis imperfecta Q78.0 ; Osteoporosis, unspecified osteoporosis type, unspecified pathological fracture presence M81.0 ; Lichen sclerosus L90.0 ; Cervicalgia M54.2 ; Lumbago with sciatica, left side M54.42 ; Conversion disorder F44.9 and Myofascial pain syndrome M79.1 [id number] [address] Feb, Conversion disorder F44.9 [facility] [employer] [address] [id number] [place] [address] Feb Type 2 diabetes mellitus without complications E11.9 [id number] [address] 16 Feb, 2018 [facility] [address] [id number] [place] [address] Feb Chronic pain syndrome G89.4 ; Conversion disorder F44.9 and Bipolar 1 disorder F31.9 [facility] [employer] [address] [id number] [place] [address] Feb Chronic pain syndrome G89.4 ; Osteogenesis imperfecta Q78.0 ; Migraine with aura and without status migrainosus, not intractable G43.109 ; Cervical spinal stenosis M48.02 ; Lumbar back pain with radiculopathy affecting left lower extremity M54.16 ; Lumbar back pain with radiculopathy affecting right lower extremity M54.16 and Conversion disorder F44.9 [address] [address] Feb, [facility] [address] [id number] [place] [address] Jan [facility] [address] [id number] [place] [address] Jan Nausea and vomiting in adult R11.2 ; Fever in other diseases R50.81 and Diarrhea of presumed infectious origin R19.7 [id number] [place] [address] Jan, [id number] [place] [address] Jan, [facility] [address] [id number] [place] [address] Jan [facility] [address] [id number] [place] [address] Jan Polyarthralgia M25.50 ; Acute pharyngitis due to other specified organisms J02.8 ; Other viral agents as the cause of diseases classified elsewhere B97.89 and Fever, unspecified fever cause R50.9 [address] [id number] [address] 17 Jan, 2018 Type 2 diabetes mellitus without complications E11.9 [facility] [address] [id number] [place] [address] Jan [facility] [address] [id number] [place] [address] 10 Jan Migraine with aura and without status migrainosus, not intractable G43.109 and Tendinitis of right forearm M77.9 [facility] [address] [id number] [place] [address] Jan [facility] [address] [id number] [place] [address] Dec 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 ; Adverse effect of unspecified drugs, medicaments and biological substances, initial encounter T50.905A ; Myofascial pain syndrome M79.1 ; Non-intractable vomiting with nausea, unspecified vomiting type R11.2 ; Polypharmacy Z79.899 and BMI 40.0-44.9, adult Z68.41 [address] [id number] [address] Dec, Conversion disorder F44.9 and BMI 40.0-44.9, adult Z68.41 [address] [id number] [address] Dec, [facility] [address] [id number] [place] [address] Dec [address] [id number] [address] Dec, [facility] [address] [id number] [place] [address] Dec Type 2 diabetes mellitus without complications E11.9 and BMI 40.0-44.9, adult Z68.41 [facility] [address] [id number] [place] [address] Nov [facility] [address] [id number] [place] [address] Nov [facility] [address] [id number] [place] [address] Nov Migraine with aura and without status [...] extremity M54.16 and BMI 40.0-44.9, adult Z68.41 [id number] [address] Nov, Other chronic pain G89.29 [facility] [address] [id number] [place] [address] 09 Nov Moderate persistent asthma with exacerbation J45.41 ; Acute bronchitis due to other specified organisms J20.8 ; Tobacco use disorder F17.200 ; Benign essential hypertension I10 ; Hyperlipidemia, unspecified hyperlipidemia type E78.5 ; Fibromyalgia M79.7 ; Interstitial cystitis N30.10 ; Polypharmacy Z79.899 ; Other chronic pain G89.29 ; Non-seasonal allergic rhinitis, unspecified trigger J30.89 and BMI 40.0-44.9, adult Z68.41 [facility] [address] [id number] [address] 05 Nov, 2017 Other chronic pain G89.29 ; Fibromyalgia M79.7 ; Bipolar 1 disorder F31.9 and BMI 40.0-44.9, adult Z68.41 [facility] [address] [id number] [address] 21 Oct, 2017 Other chronic pain G89.29 [facility] [address] [id number] [place] [address] 15 Oct, 2017 Type 2 diabetes mellitus without complications E11.9 and Other chronic pain G89.29 [facility] [address] [id number] [place] [address] 14 Oct, 2017 Type 2 diabetes mellitus without complications E11.9 ; longterm current use of insulin Z79.4 ; Obesity, [...] type E78.5 and BMI 40.0-44.9, adult Z68.41 [facility] [address] [address] Aug, [facility] [address] [id number] [address] Aug, [facility] [address] [address] September, [facility] [id number] [place] [address] September, [facility] [address] [id number] [address] Aug, [facility] [id number] [place] [address] Aug, [facility] [address] [address] Jul, [facility] [address] [address] Jul, [facility] [address] [address] Jun, [facility] [address] [address] Jun, [facility] [address] [address] Jun, [facility] [address] [address] Jun, [facility] [address] [address] Jun, [facility] [address] [address] Jun, [facility] [address] [id number] [place] [address] May, [facility] [place] [facility] [address] [id number] [place] [address] May, [facility] [place] [facility] [address] [facility] [id number] [place] [address] May, [facility] [place] [facility] [address] [id number] [place] [address] May, [facility] [place] [facility] [address] [id number] [place] [address] May, [facility] [place] [facility] [address] [id number] [place] [address] May, [facility] [place] [facility] [address] [id number] [place] [address] May, [facility] [place] [facility] [address] [id number] [place] [address] May, [facility] [place] [facility] [address] [id number] [place] [address] Apr, [facility] [place] [facility] [address] [id number] [place] [address] Apr, [facility] [place] [facility] [address] [id number] [address] Apr, [facility] [place] [facility] [address] [id number] [address] Apr, [facility] [place] [facility] [address] [id number] [place] [address] Apr, [facility] [place] [facility] [address] [id number] [address] Mar, [facility] [place] [facility] [address] [id number] [place] [address]- [address] Mar, [facility] [place] [facility] [address] [id number] [place] [address]- [address] 27 Mar, 2013 [facility] [address] [id number] [place] [address] 27 Mar, 2013 [facility] [place] [facility] [address] [id number] [place] [address]- [address] 19 Mar, 2013 [facility] [place] [facility] [address] [id number] [place] [address]- [address] 19 Mar, 2013 [facility] [place] [facility] [address] [id number] [place] [address]- 16[address] 18 Mar, 2013 [facility] [place] [facility] [address] [id number] [place] [address]- [address] 18 Mar, 2013 [facility] [place] [facility] [address] [id number] [place] [address]- [address] 14 Mar, 2013 [facility] [place] [facility] [address] [id number] [place] [address]- [address] 14 Mar, 2013 [facility] [place] [facility] [address] [id number] [place] [address]- [address] Mar, [facility] [place] [facility] [address] [id number] [place] [address]- 67[address] Mar, [facility] [place] [facility] [address] [id number] [place] [address]- [address] 07 Mar, 2013 [facility] [place] [facility] [address] [id number] [place] [address]- 15[address] 07 Mar, 2013 [facility] [place] [facility] [address] [id number] [place] [address]- [address] 06 Mar, 2013 [facility] [place] [facility] [address] [id number] [place] [address]- [address] 06 Mar, 2013 [facility] [place] [facility] [address] [id number] [place] [address]- [address] 2013 [facility] [place] [facility] [address] [id number] [place] [address]- [address] Mar, [facility] [place] [facility] [address] [id number] [place] [address]- [address] Feb, [facility] [place] [facility] [address] [id number] [place] [address]- [address] Feb, [facility] [place] [facility] [address] [id number] [place] [address]- [address] Feb, [facility] [place] [facility] [address] [id number] [place] [address]- 10[address] Feb, [facility] [address] [id number] [place] [address]- [address] Feb, [facility] [place] [facility] [address] [id number] [place] [address]- 67[address] Feb, [facility] [address] [id number] [place] [address]- [address] Feb, [facility] [address] [id number] [place] [address]- [address] Feb, [facility] [address] [id number] [place] [address]- 39[address] Feb, [facility] [place] [facility] [address] [id number] [address] 15 Feb, 2013 [facility] [place] [facility] [address] [id number] [place] [address]- [address] 15 Feb, 2013 [facility] [place] [facility] [address] [id number] [address] 14 Feb, 2013 [facility] [place] [facility] [address] [id number] [place] [address]- [address] 26 Jan, 2013 [facility] [place] [facility] [address] [id number] [place] [address]- 86[address] 25 Jan, 2013 [facility] [place] [facility] [address] [id number] [place] [address]- 77[address] 24 Jan, 2013 [facility] [place] [facility] [address] [id number] [address] Jan, [facility] [address] [facility] [id number] [place] [address] Jan, [facility] [address] [facility] [id number] [place] Jan, [facility] [address] [facility] [id number] [place] [address] Jan, IMMUNIZATIONS No Known Immunizations SOCIAL HISTORY Never Assessed REASON FOR VISIT Enrolled in [facility] PLAN OF CARE VITAL SIGNS MEDICATIONS Unknown [...] Colonoscopy Dr. Ford 01/12/2016: polyps Medical History WBC Count 03/05/2016: 20.0 (62% segs, 7% bands), no recent steroids. 11/23/16: 21.9 (61% segs, 2% bands). 06/24/17: 14.2 (65.3% neutrophils) . 11/02/2017: 15.5 (63.2% neutrophils). Medical History CT head w/o contrast 09/09/2016: normal Medical History MRI cervical spine 05/11/2016: C6-7 spondylosis with mild central canal stenosis; C5-6 spondylosis with left neural foraminal stenosis. Study done on 07/11/17: Multilevel degenerative changes of the cervical spine most prominent at C6-7 level there there is moderate central canal stenosis. Medical History WBC Count 05/03/2016: 18.9 (59.3% neutrophils) Medical History Screening mammogram 04/15/2016: no evidence of malignancy Medical History NM Bone Scan 09/30/2015: uptake in left anterolateral ribs Medical History Lipid profile 08/08/2014: TG level 1,990, Total cholesterol 362 , HDL 21. 08/03/17: Total chol 172, TG 664, HDL 9. Medical History Pelvis x-rays 07/29/2015 Normal Medical History NM Bone Scan R Foot 06/16/2015: Uptake 5th metatarsal head Medical History Intact PTH Levels: 06/11/2015: 11 (normal 15-65). 08/16/16: 10.9 (normal 10-65). Medical History Video swallow 06/09/2015: Normal Medical History DEXA Studies: 06/04/2015: L-spine T-score -2.5, femoral neck T- score -2.7. 08/16/2016: Lumbar T-score -3.0, left femoral neck T-score -2.2, total left hip T-score -2.3, right femoral neck -1.9, total right hip T-score - 2.0. Medical History CXR 11/23/16: Chronic left rib fracture deformities Medical History Left 9th rib fracture 10/2016 Medical History Left knee x-rays 02/23/17: normal Medical History Vitamin B12 03/24/17-- 496 Medical History TSH 03/24/17: 0.80 Medical History Bilateral carotid duplex U/S 06/13/17: [...] procedures Hospitalization History Aseptic meningitis at [facility] 01/13/18 to 01/20/18
--- OUTSIDE RECORDS SUMMARY | 2018-05-10 07:32 | XMS REPORT ---
Author Author SUMMER [facility] Address [address] [place] [address] Care Team Providers Care Chairman And Ceo Name Role Phone SUMMER LY Unavailable PROBLEMS Type Condition ICD9-CM Code QYQ12-ZS Code Onset Dates Condition Status SNOMED Code Problem Lumbar back pain with radiculopathy affecting right lower extremity M54.16 Active 362618150 Problem Lumbar back pain with radiculopathy affecting left lower extremity M54.16 Active 534449022 Problem Non-seasonal allergic rhinitis, unspecified trigger J30.89 Active 05954202 Problem Moderate persistent asthma without complication J45.40 Active 348756250 Problem Body mass index (BMI) of 40.0-44.9 in adult Z68.41 Active 424643000 Problem Morbid (severe) obesity due to excess calories E66.01 Active [id number] Problem Benign essential hypertension I10 Active 6109705 Problem Osteogenesis imperfecta Q78.0 Active 46262018 Problem Cervical spinal stenosis M48.02 Active 46226906 Problem Fibromyalgia M79.7 Active 436891331 Problem Sinus tachycardia R00.0 Active 39166165 Problem Hypertriglyceridemia E78.1 Active 813597545 Problem Migraine with aura and without status migrainosus, not intractable G43.109 Active 1025040 Problem Chronic pain syndrome G89.4 Active 126248733 Problem Myofascial pain syndrome M79.1 Active 368933683 Problem Type 2 diabetes mellitus without complications E11.9 Active 340080878 Problem Cervicalgia M54.2 Active 36076292 Problem Lumbago with sciatica, left side M54.42 Active 488456869 Problem Lichen sclerosus L90.0 Active 88788035 Problem Mixed hyperlipidemia E78.2 Active 526203000 Problem Conversion disorder F44.9 Active 46379124 Problem Leukocytosis, unspecified type D72.829 Active 148130915 Problem Bipolar 1 disorder F31.9 Active 861054712 Problem Interstitial cystitis N30.10 Active 483918143 Problem Other chronic pain G89.29 Active 53555751 Problem retirement current use of insulin Z79.4 Active 781002418 Problem Polypharmacy Z79.899 Active 465767392 Problem Tobacco use disorder F17.200 Active 708786853 Problem AARON (nonalcoholic steatohepatitis) K75.81 Active 895666159 Problem Osteoporosis, unspecified osteoporosis type, unspecified pathological fracture presence M81.0 Active 08929747 ALLERGIES No Information ENCOUNTERS Encounter Location Date Diagnosis [place] [id number] [address] Feb, [place] [address] [place] [id number] [place] [address] Feb, Conversion disorder F44.9 [facility] [address] [id number] [place] [address] Feb Type 2 diabetes mellitus without complications E11.9 [place] [address], [place] [address] Feb, [facility] [address] [id number] [place] [address] Feb Chronic pain syndrome G89.4 ; Conversion disorder F44.9 and Bipolar 1 disorder F31.9 [facility] [address] [id number] [place] [address] 08 Feb Chronic pain syndrome G89.4 ; Osteogenesis imperfecta Q78.0 ; Migraine with aura and without status migrainosus, not intractable G43.109 ; Cervical spinal stenosis M48.02 ; Lumbar back pain with radiculopathy affecting left lower extremity M54.16 ; Lumbar back pain with radiculopathy affecting right lower extremity M54.16 and Conversion disorder F44.9 [place] [address] [place] [id number] [address] Feb, [facility] [place] [address] [id number] [place] [address] Jan [facility] [place] [address] [id number] [place] [address] Jan Nausea and vomiting in adult R11.2 ; Fever in other diseases R50.81 and Diarrhea of presumed infectious origin R19.7 [place] [address], [place] [address] Jan, [place] [address] [place] [id number] [address] Jan, [facility] [address] [id number] [place] [address] Jan [facility] [address] [id number] [place] [address] Jan Polyarthralgia M25.50 ; Acute pharyngitis due to other specified organisms J02.8 ; Other viral agents as the cause of diseases classified elsewhere B97.89 and Fever, unspecified fever cause R50.9 [place] [address] [place] [id number] [address] Jan, Type 2 diabetes mellitus without complications E11.9 [facility] [address] [id number] [place] [address] Jan [facility] [employer] [id number] [place] [address] Jan Migraine with aura and without status migrainosus, not intractable G43.109 and Tendinitis of right forearm M77.9 [facility] [address] [id number] [place] [address] Jan [facility] [address] [id number] [place] [address] Dec 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 ; Adverse effect of unspecified drugs, medicaments and biological substances, initial encounter T50.905A ; Myofascial pain syndrome M79.1 ; Non-intractable vomiting with nausea, unspecified vomiting type R11.2 ; Polypharmacy Z79.899 and BMI 40.0-44.9, adult Z68.41 [place] [id number] [address] Dec, Conversion disorder F44.9 and BMI 40.0-44.9, adult Z68.41 [place] [address] [facility] [place] [id number] [place] [address] Dec, [facility] [place] [address] [id number] [place] [address] Dec [place] [address] [facility] [place] [id number] [place] [address] Dec, [facility] [address] [id number] [place] [address] Dec Type 2 diabetes mellitus without complications E11.9 and BMI 40.0-44.9, adult Z68.41 [facility] [address] [id number] [place] [address] Nov [facility] [address] [id number] [place] [address] Nov [facility] [address] [id number] [place] [address] Nov Migraine with aura and without status [...] extremity M54.16 and BMI 40.0-44.9, adult Z68.41 [place] [address] [facility] [place] [id number] [place] [address] Nov, Other chronic pain G89.29 [facility] [address] [id number] [place] [address] Nov Moderate persistent asthma with exacerbation J45.41 ; Acute bronchitis due to other specified organisms J20.8 ; Tobacco use disorder F17.200 ; Benign essential hypertension I10 ; Hyperlipidemia, unspecified hyperlipidemia type E78.5 ; Fibromyalgia M79.7 ; Interstitial cystitis N30.10 ; Polypharmacy Z79.899 ; Other chronic pain G89.29 ; Non-seasonal allergic rhinitis, unspecified trigger J30.89 and BMI 40.0-44.9, adult Z68.41 [facility] [id number] [address] 05 Nov, 2017 Other chronic pain G89.29 ; Fibromyalgia M79.7 ; Bipolar 1 disorder F31.9 and BMI 40.0-44.9, adult Z68.41 [facility] [id number], [place] [address] 21 Oct, 2017 Other chronic pain G89.29 [facility] [address] [place] [id number] [place] [address] 15 Oct, 2017 Type 2 diabetes mellitus without complications E11.9 and Other chronic pain G89.29 [facility] [address] [place] [id number] [place] [address] 14 Oct, 2017 Type 2 diabetes mellitus without complications E11.9 ; 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 ; Obesity, [...] type E78.5 and BMI 40.0-44.9, adult Z68.41 [facility] [address], [place] [address] 14 Aug, 2014 [facility] [address] [place] [id number] [place] [address] Aug, [facility] [place] [facility] [address] [id number] [place] [address] September, [facility] [place] [facility] [address] [id number] [place] [address] September, [facility] [place] [facility] [address] [facility] [place] [id number] [place] [address] Aug, [facility] [place] [facility] [address] [id number] [place] [address] Aug, [facility] [place] [facility] [address] [id number] [place] [address] Jul, [facility] [place] [facility] [address] [id number] [place] [address] Jul, [facility] [place] [facility] [address] [facility] [place] [id number] [place] [address] Jun, [facility] [place] [facility] [address] [id number] [place] [address] Jun, [facility] [place] [facility] [address] [id number] [place] [address] Jun, [facility] [place] [facility] [address] [facility] [place] [id number] [place] [address] Jun, [facility] [place] [facility] [address] [id number] [place] [address] Jun, [facility] [place] [facility] [address] [id number] [place] [address] Jun, [facility] [place] [facility] [address] [id number] [place] [address] May, [facility] [place] [facility] [address] [id number] [place] [address] May, [facility] [place] [facility] [address] [facility] [place] [id number] [place] [address] May, [facility] [place] [facility] [address] [id number] [place] [address] May, [facility] [address] [id number] [place] [address] May, [facility] [place] [facility] [address] [id number] [place] [address] May, [facility] [place] [facility] [address] [id number] [place] [address] May, [facility] [place] [facility] [address] [id number] [place] [address] May, [facility] [place] [facility] [address] [id number] [place] [address] Apr, [facility] [place] [facility] [address] [id number] [place] [address] Apr, [facility] [place] [facility] [address] [id number] [place] [address] Apr, [facility] [place] [facility] [address] [id number] [place] [address] Apr, [facility] [place] [facility] [address] [id number] [place] [address] Apr, [facility] [place] [facility] [address] [id number] [place] [address] Mar, [facility] [place] [facility] [address] [id number] [place] [address]- [address] Mar, [facility] [place] [facility] [address] [id number] [place] [address]- [address] Mar, [facility] [place] [facility] [address] [id number] [place] [address]- [address] Mar, [facility] [place] [facility] [address] [id number] [place] [address] Mar, [facility] [place] [facility] [address] [id number] [place] [address]- 1893 Mar, [facility] [place] [facility] [address] [id number] [place] [address]- 8[address] 18 Mar, 2013 [facility] [place] [facility] [address] [id number] [place] [address] 18 Mar, 2013 [facility] [place] [facility] [address] [id number] [place] [address]- [address] 14 Mar, 2013 [facility] [place] [facility] [address] [id number] [place] [address]- 62[address] 14 Mar, 2013 [facility] [place] [facility] [address] [id number] [place] [address]- [address] Mar, [facility] [place] [facility] [address] [id number] [place] [address]- 6644 Mar, [facility] [place] [facility] [address] [id number] [place] [address]- [address]249 Mar, [facility] [place] [facility] [address] [id number], [place] [address] Mar, [facility] [place] [facility] [address] [id number] [place] [address]- [address] Mar, [facility] [place] [facility] [address] [id number], [place] [address] Mar, [facility] [place] [facility] [address] [id number], [place] [address] Mar, [facility] [place] [facility] [address] [id number], [place] [address] Mar, [facility] [place] [facility] [address] [id number] [place] [address]- [address] Feb, [facility] [place] [facility] [address] [id number], [place] [address] Feb, [facility] [place] [facility] [address] [id number], [place] [address] Feb, [facility] [place] [facility] [address] [id number] [place] [address]- [address] 28 Feb, 2013 [facility] [address] [id number] [place] [address]- [address] 23 Feb, 2013 [facility] [address] [id number] [place] [address] 8[address] 23 Feb, 2013 [facility] [address] [id number] [place] [address] 22 Feb, 2013 [facility] [address] [id number] [place] [address] 22 Feb, 2013 [facility] [address] [id number] [place] [address]- 84[address] 21 Feb, 2013 [facility] [address] [id number] [place] [address]40 15 Feb, 2013 [facility] [address] [facility] [place] [id number] [place] [address] 15 Feb, 2013 [facility] [address] [id number] [place] [address]- 70[address] 14 Feb, 2013 [facility] [address] [facility] [place] [id number] [place] [address]49 26 Jan, 2013 [facility] [address] [facility] [place] [id number] [place] [address]- [address] 25 Jan, 2013 [facility] [address] [id number] [place] [address]46 24 Jan, 2012 [facility] [address] [id number], [place] [address] 23 Jan, 2012 [facility] [address] [id number], [place] [address] 20 Jan, 2012 [facility] [address] [facility] [place] [id number], [place] [address]- [address] 19 Jan, 2012 [facility] [address] [id number][place] [address]- [address] 18 Jan, 2013 IMMUNIZATIONS No Known Immunizations SOCIAL HISTORY Never Assessed REASON FOR VISIT refill on Lantus PLAN OF CARE VITAL SIGNS MEDICATIONS Medication Instructions Dosage Frequency Start Date End Date Duration Status Lantus 100 UNIT/ML Subcutaneous 2 times a day 35 units daily 12h 30 days Active RESULTS No Results PROCEDURES No Known procedures [...] Medical History Inpatient Video EEG 01/14/18 to 8/19/18: mild to moderate encephalopathy; no epileptiform activity [...] procedures Hospitalization History Aseptic meningitis at [facility] 01/13/18 to 01/20/18
--- OUTSIDE RECORDS SUMMARY | 2018-05-10 07:32 | XMS REPORT ---
Author Author TOY JAMES Organization [facility] Address [address] [place] [address] Care Team Providers Care [address] Vendor Name Role Phone TOY JAMES Unavailable PROBLEMS Type Condition ICD9-CM Code [id number] Code Onset Dates Condition Status SNOMED Code Problem Lumbar back pain with radiculopathy affecting right lower extremity M54.16 Active 954339080 Problem Lumbar back pain with radiculopathy affecting left lower extremity M54.16 Active 786082624 Problem Non-seasonal allergic rhinitis, unspecified trigger J30.89 Active 77567637 Problem Moderate persistent asthma without complication J45.40 Active 435272735 Problem Body mass index (BMI) of 40.0-44.9 in adult Z68.41 Active 382741445 Problem Morbid (severe) obesity due to excess calories E66.01 Active 04456899947689 Problem Benign essential hypertension I10 Active 8030841 Problem Osteogenesis imperfecta Q78.0 Active 36852534 Problem Cervical spinal stenosis M48.02 Active 78452820 Problem Fibromyalgia M79.7 Active 309574998 Problem Sinus tachycardia R00.0 Active 16641269 Problem Hypertriglyceridemia E78.1 Active 448442556 Problem Migraine with aura and without status migrainosus, not intractable G43.109 Active 9228266 Problem Chronic pain syndrome G89.4 Active 213715217 Problem Myofascial pain syndrome M79.1 Active 707830331 Problem Type 2 diabetes mellitus without complications E11.9 Active 554271435 Problem Cervicalgia M54.2 Active 56439549 Problem Lumbago with sciatica, left side M54.42 Active 497960986 Problem Lichen sclerosus L90.0 Active 43296252 Problem Mixed hyperlipidemia E78.2 Active 398865007 Problem Conversion disorder F44.9 Active 40053883 Problem Leukocytosis, unspecified type D72.829 Active 054724034 Problem Bipolar 1 disorder F31.9 Active 596651209 Problem Interstitial cystitis N30.10 Active 013801708 Problem Other chronic pain G89.29 Active 15700379 Problem 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 home 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 use of 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 Z79.4 Active 930249135 Problem Polypharmacy Z79.899 Active 823480928 Problem Tobacco use disorder F17.200 Active 136865259 Problem AARON (nonalcoholic steatohepatitis) K75.81 Active 216602158 Problem Osteoporosis, unspecified osteoporosis type, unspecified pathological fracture presence M81.0 Active 62795110 ALLERGIES No Information ENCOUNTERS Encounter Location Date Diagnosis [place] [address], [place] [address] Feb, [place] [address] [place] [id number] [place] [address] Feb, Conversion disorder F44.9 [facility] [place] [address] [id number] [place] [address] Feb Type 2 diabetes mellitus without complications E11.9 [place] [address] [place] [id number] [address] Feb, [facility] [place] [address] [id number] [place] [address] Feb Chronic pain syndrome G89.4 ; Conversion disorder F44.9 and Bipolar 1 disorder F31.9 [facility] [place] [address] [id number] [place] [address] 08 Feb Chronic pain syndrome G89.4 ; Osteogenesis imperfecta Q78.0 ; Migraine with aura and without status migrainosus, not intractable G43.109 ; Cervical spinal stenosis M48.02 ; Lumbar back pain with radiculopathy affecting left lower extremity M54.16 ; Lumbar back pain with radiculopathy affecting right lower extremity M54.16 and Conversion disorder F44.9 [place] [address] [place] [id number] [address] Feb, [facility] [place] [address] [id number] [place] [address] Jan [facility] [place] [address] [id number] [place] [address] Jan Nausea and vomiting in adult R11.2 ; Fever in other diseases R50.81 and Diarrhea of presumed infectious origin R19.7 [place] [address] [address] Jan, [place] [address] [place] [id number] [address] Jan, [facility] [place] [address] [id number] [place] [address] Jan [facility] [place] [address] [id number] [place] [address] Jan Polyarthralgia M25.50 ; Acute pharyngitis due to other specified organisms J02.8 ; Other viral agents as the cause of diseases classified elsewhere B97.89 and Fever, unspecified fever cause R50.9 [place] [address] [place] [id number] [address] Jan, Type 2 diabetes mellitus without complications E11.9 [facility] [place] [employer] [address] [id number] [place] [address] Jan [facility] [place] [employer] [address] [id number] [place] [address] Jan Migraine with aura and without status migrainosus, not intractable G43.109 and Tendinitis of right forearm M77.9 [facility] [place] [employer] [address] [id number] [place] [address] Jan [facility] [place] [address] [id number] [place] [address] Dec 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 ; Adverse effect of unspecified drugs, medicaments and biological substances, initial encounter T50.905A ; Myofascial pain syndrome M79.1 ; Non-intractable vomiting with nausea, unspecified vomiting type R11.2 ; Polypharmacy Z79.899 and BMI 40.0-44.9, adult Z68.41 [place] [address] [place] [id number] [address] Dec, Conversion disorder F44.9 and BMI 40.0-44.9, adult Z68.41 [place] [address] [facility] [id number] [place] [address] Dec, [facility] [place] [address] [id number] [place] [address] Dec [place] [address] [facility] [id number] [place] [address] Dec, [facility] [place] [address] [id number] [place] [address] Dec Type 2 diabetes mellitus without complications E11.9 and BMI 40.0-44.9, adult Z68.41 [facility] [place] [address] [id number] [place] [address] Nov [facility] [place] [address] [id number] [place] [address] Nov [facility] [place] [address] [id number] [place] [address] Nov Migraine with aura and without status [...] extremity M54.16 and BMI 40.0-44.9, adult Z68.41 [place] [address] [facility] [id number] [address] Nov, Other chronic pain G89.29 [facility] [place] [address] [id number] [place] [address] Nov Moderate persistent asthma with exacerbation J45.41 ; Acute bronchitis due to other specified organisms J20.8 ; Tobacco use disorder F17.200 ; Benign essential hypertension I10 ; Hyperlipidemia, unspecified hyperlipidemia type E78.5 ; Fibromyalgia M79.7 ; Interstitial cystitis N30.10 ; Polypharmacy Z79.899 ; Other chronic pain G89.29 ; Non-seasonal allergic rhinitis, unspecified trigger J30.89 and BMI 40.0-44.9, adult Z68.41 [facility] [id number] [address] 05 Nov, 2017 Other chronic pain G89.29 ; Fibromyalgia M79.7 ; Bipolar 1 disorder F31.9 and BMI 40.0-44.9, adult Z68.41 [facility] [id number], [place] [address] 21 Oct, 2017 Other chronic pain G89.29 [facility] [address] [place] [id number] [place] [address] 15 Oct, 2017 Type 2 diabetes mellitus without complications E11.9 and Other chronic pain G89.29 [facility] [address] [id number] [address] 14 Oct, 2017 Type 2 diabetes mellitus without complications E11.9 ; 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 ; Obesity, [...] type E78.5 and BMI 40.0-44.9, adult Z68.41 [facility] [address], [place] [address] 14 Aug, 2014 [facility] [address] [place] [address] [id number] [place] [address] Aug, [facility] [place] [facility] [address] [id number] [place] [address] September, [facility] [place] [facility] [address] [id number] [place] [address] September, [facility] [place] [facility] [address] [id number] [place] [address] Aug, [facility] [place] [facility] [address] [id number] [place] [address] Aug, [facility] [place] [facility] [address] [id number] [place] [address] Jul, [facility] [place] [facility] [address] [id number] [place] [address] Jul, [facility] [place] [facility] [address] [id number] [place] [address] Jun, [facility] [place] [facility] [address] [id number] [place] [address] Jun, [facility] [place] [facility] [address] [id number] [place] [address] Jun, [facility] [place] [facility] [address] [id number] [place] [address] Jun, [facility] [place] [facility] [address] [id number] [place] [address] Jun, [facility] [place] [facility] [address] [id number] [place] [address] Jun, [facility] [place] [facility] [address] [id number] [place] [address] May, [facility] [place] [facility] [address] [id number] [place] [address] May, [facility] [place] [facility] [address] [id number] [place] [address] May, [facility] [place] [facility] [address] [id number] [place] [address] May, [facility] [address] [id number] [place] [address] May, [facility] [address] [id number] [place] [address] May, [facility] [address] [id number] [place] [address] May, [facility] [address] [id number] [place] [address]31 May, [facility] [address] [id number] [place] [address] Apr, [facility] [address] [id number] [place] [address] [address] Apr, [facility] [address] [id number] [place] [address] Apr, [facility] [address] [id number] [place] [address] [address] Apr, [facility] [address] [id number] [place] [address] Apr, [facility] [address] [id number] [place] [address] Mar, [facility] [address] [id number] [place] [address] Mar, [facility] [address] [id number] [place] [address]- [address] Mar, [facility] [place] [facility] [address] [id number] [place] [address]- [address] Mar, [facility] [address] [id number] [place] [address]- [address] Mar, [facility] [address] [id number] [place] [address]- [address] Mar, [facility] [place] [facility] [address] [id number] [place] [address]- 48[address] 18 Mar, 2013 [facility] [place] [facility] [address] [id number] [place] [address]- 2698 18 Mar, 2013 [facility] [place] [facility] [address] [id number] [place] [address]- [address] 14 Mar, 2013 [facility] [place] [facility] [address] [id number] [place] [address]- [address] 14 Mar, 2013 [facility] [place] [facility] [address] [id number] [place] [address]- 15[address] Mar, [facility] [place] [facility] [address] [id number] [place] [address]- 8669 Mar, [facility] [place] [facility] [address] [id number] [place] [address]- [address] Mar, [facility] [place] [facility] [address] [id number] [place] [address]- 6645 Mar, [facility] [place] [facility] [address] [id number] [place] [address]- [address] Mar, [facility] [place] [facility] [address] [id number], [place] [address] Mar, [facility] [place] [facility] [address] [id number], [place] [address]- [address] Mar, [facility] [place] [facility] [address] [id number] [address] Mar, [facility] [place] [facility] [address] [id number] [place] [address]- [address] Feb, [facility] [place] [facility] [address] [id number] [place] [address]- [address] Feb, [facility] [place] [facility] [address] [id number] [place] [address]- [address] Feb, [facility] [place] [facility] [address] [id number], [place] [address] 28 Feb, 2013 [facility] [address] [id number] [place] [address]- [address] 23 Feb, 2013 [facility] [address] [facility] [id number] [address] 23 Feb, 2013 [facility] [address] [id number] [address] Feb, [facility] [address] [id number], [place] [address] 22 Feb, 2013 [facility] [address] [id number] [place] [address] Feb, [facility] [address] [id number], [place] [address] 15 Feb, 2013 [facility] [address] [facility] [id number] [address] 15 Feb, 2013 [facility] [address] [id number] [address] 14 Feb, 2013 [facility] [address] [facility] [id number], [place] [address] 26 Jan, 2013 [facility] [address] [facility] [id number], [place] [address] 25 Jan, 2013 [facility] [address] [facility] [id number], [place] [address] 24 Jan, 2012 [facility] [address] [id number], [place] [address]- [address] 23 Jan, [address] [facility] [address] [id number], [place] [address] 20 Jan, 2012 [facility] [address] [facility] [id number], [place] [address] 19 Jan, 2012 [facility] [address] [facility] [id number] [address] 18 Jan, 2012 IMMUNIZATIONS No Known Immunizations SOCIAL HISTORY Never Assessed REASON FOR VISIT DBT Group PLAN OF CARE Activity Details Follow Up Next available Reason: VITAL SIGNS MEDICATIONS Unknown Medications RESULTS No Results PROCEDURES Procedure Date Ordered Result Body Site [facility] VISIT MENTAL HEALTH ESTAB PT Mar 22, 2018 Psychotherapy, patient &/family, 60 minutes, established patient Mar 22, 2018 INSTRUCTIONS MEDICATIONS ADMINISTERED No Known Medications [...] procedures Hospitalization History Aseptic meningitis at [facility] 01/13/18 to 01/20/18
--- OUTSIDE RECORDS SUMMARY | 2018-05-10 07:33 | XMS REPORT ---
Author Author EDVINJOSE SERRANO [facility] Address [address] [place] [address] Care Team Providers Care [employer] Speech Language Pathologist Name Role Phone JOSE DOBBS Unavailable PROBLEMS Type Condition ICD9-CM Code ODE88-BK Code Onset Dates Condition Status SNOMED Code Problem Lumbar back pain with radiculopathy affecting right lower extremity M54.16 Active 678060283 Problem Lumbar back pain with radiculopathy affecting left lower extremity M54.16 Active 451877684 Problem Non-seasonal allergic rhinitis, unspecified trigger J30.89 Active 70715745 Problem Moderate persistent asthma without complication J45.40 Active 339093331 Problem Body mass index (BMI) of 40.0-44.9 in adult Z68.41 Active 302058160 Problem Tobacco use disorder F17.200 Active 734304448 Problem Morbid (severe) obesity due to excess calories E66.01 Active 75914254121920 Problem Benign essential hypertension I10 Active 4527851 Problem Osteogenesis imperfecta Q78.0 Active 86172010 Problem Cervical spinal stenosis M48.02 Active 40176975 Problem Migraine with aura and without status migrainosus, not intractable G43.109 Active 1231654 Problem Sinus tachycardia R00.0 Active 80934278 Problem Myofascial pain syndrome M79.1 Active 712220885 Problem Conversion disorder F44.9 Active 96377177 Problem Cervicalgia M54.2 Active 07001138 Problem Lumbago with sciatica, left side M54.42 Active 114437141 Problem Fibromyalgia M79.7 Active 452766249 Problem Mixed hyperlipidemia E78.2 Active 568603134 Problem Hypertriglyceridemia E78.1 Active 785353951 Problem Leukocytosis, unspecified type D72.829 Active 327885691 Problem Lichen sclerosus L90.0 Active 76110211 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 Active 016134614 Problem Interstitial cystitis N30.10 Active 363672243 Problem Other chronic pain G89.29 Active 58311209 Problem Type 2 diabetes mellitus without complications E11.9 Active 875320658 Problem Osteoporosis, unspecified osteoporosis type, unspecified pathological fracture presence M81.0 Active 67293815 Problem Polypharmacy Z79.899 Active 796357522 Problem AARON (nonalcoholic steatohepatitis) K75.81 Active 675896595 Problem Bipolar 1 disorder F31.9 Active 003293912 ALLERGIES No Information ENCOUNTERS Encounter Location Date Diagnosis [place] [id number] [place] [address] 02 Feb, 2018 [facility] [place] [address] [id number] [place] [address] Jan [facility] [address] [id number] [place] [address] Jan Nausea and vomiting in adult R11.2 ; Fever in other diseases R50.81 and Diarrhea of presumed infectious origin R19.7 [place] [address] [place] [id number] [place] [address] Jan, [place] [address] [place] [id number] [place] [address] Jan, [facility] [address] [id number] [place] [address] Jan [facility] [address] [id number] [place] [address] 19 Jan Polyarthralgia M25.50 ; Acute pharyngitis due to other specified organisms J02.8 ; Other viral agents as the cause of diseases classified elsewhere B97.89 and Fever, unspecified fever cause R50.9 [facility] [address], [place] [address] 17 Jan, 2018 Type 2 diabetes mellitus without complications E11.9 [facility] [address] [id number] [place] [address] 11 Jan [facility] [address] [id number] [place] [address] Jan Migraine with aura and without status migrainosus, not intractable G43.109 and Tendinitis of right forearm M77.9 [facility] [place] [address] [id number] [place] [address] Jan [facility] [place] [address] [id number] [place] [address] Dec 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 ; Adverse effect of unspecified drugs, medicaments and biological substances, initial encounter T50.905A ; Myofascial pain syndrome M79.1 ; Non-intractable vomiting with nausea, unspecified vomiting type R11.2 ; Polypharmacy Z79.899 and BMI 40.0-44.9, adult Z68.41 [facility] [address] [id number] [address] Dec, Conversion disorder F44.9 and BMI 40.0-44.9, adult Z68.41 [place] [address] [id number], [place] [address] Dec, [facility] [place] [address] [id number] [place] [address] Dec [facility] [address] [place] [id number], [place] [address] Dec, [facility] [place] [address] [id number] [place] [address] Dec Type 2 diabetes mellitus without complications E11.9 and BMI 40.0-44.9, adult Z68.41 [facility] [place] [address] [id number] [place] [address] Nov [facility] [place] [address] [id number] [place] [address] Nov [facility] [place] [address] [id number] [place] [address] Nov Migraine with aura and without status [...] extremity M54.16 and BMI 40.0-44.9, adult Z68.41 [facility] [address] [facility] [id number] [place] [address] Nov, Other chronic pain G89.29 [facility] [address] [id number] [place] [address] Nov Moderate persistent asthma with exacerbation J45.41 ; Acute bronchitis due to other specified organisms J20.8 ; Tobacco use disorder F17.200 ; Benign essential hypertension I10 ; Hyperlipidemia, unspecified hyperlipidemia type E78.5 ; Fibromyalgia M79.7 ; Interstitial cystitis N30.10 ; Polypharmacy Z79.899 ; Other chronic pain G89.29 ; Non-seasonal allergic rhinitis, unspecified trigger J30.89 and BMI 40.0-44.9, adult Z68.41 [facility] [address] [id number] [address] 05 Nov, 2017 Other chronic pain G89.29 ; Fibromyalgia M79.7 ; Bipolar 1 disorder F31.9 and BMI 40.0-44.9, adult Z68.41 [facility] [address] [id number], [place] [address] Oct, Other chronic pain G89.29 [facility] [address] [id number] [address] 15 Oct, 2017 Type 2 diabetes mellitus without complications E11.9 and Other chronic pain G89.29 [facility] [address] [id number] [address] 14 Oct, 2017 Type 2 diabetes mellitus without complications E11.9 ; [facility] current use of insulin Z79.4 ; Obesity, [...] type E78.5 and BMI 40.0-44.9, adult Z68.41 [facility] [id number] [place] [address] Aug, [facility] [address] [place] [id number] [place] [address] Aug, [facility] [address] [place] [id number] [place] [address] September, [facility] [id number] [place] [address] September, [facility] [id number] [place] [address]- 20[address] Aug, [facility] [address] [place] [id number] [place] [address] Aug, [facility] [address]100[place], [place] [address] Jul, [facility] [id number], [place] [address] Jul, [facility] [address]100[place], [place] [address] Jun, [facility] [id number] [place] [address]- [address] Jun, [facility] [address] [address] Jun, [facility] [id number] [place] [address] Jun, [facility] [address] [id number] [place] [address] Jun, [facility] [place] [facility] [address] [id number] [place] [address] Jun, [facility] [address] [id number] [place] [address] May, [facility] [place] [facility] [address] [id number] [place] [address] May, [facility] [address] [id number] [place] [address] May, [facility] [address] [id number] [place] [address] May, [facility] [address] [id number] [place] [address] 477[address] May, [facility] [address] [id number] [place] [address] 6[address] May, [facility] [address] [id number] [place] [address] 68[address] May, [facility] [address] [id number] [place] [address]- 5868 May, [facility] [address] [id number], [place] [address] Apr, [facility] [place] [facility] [address] [id number] [place] [address]- 2048 Apr, [facility] [place] [facility] [address] [id number] [place] [address] Apr, [facility] [place] [facility] [address] [id number] [place] [address]- 5468 Apr, [facility] [place] [facility] [address] [id number] [place] [address]- 5989 Apr, [facility] [place] [facility] [address] [id number] [place] [address]- 299[address] 27 Mar, 2013 [facility] [address] [id number] [place] [address]- 4269 Mar, [facility] [place] [facility] [address] [id number] [place] [address]- 0193 Mar, [facility] [place] [facility] [address] [id number] [place] [address]- 7115 Mar, [facility] [place] [facility] [address] [id number] [place] [address]- 5278 Mar, [facility] [place] [facility] [address] [id number] [place] [address]- 4996 Mar, [facility] [place] [facility] [address] [id number] [place] [address]- 8655 Mar, [facility] [place] [facility] [address] [id number] [place] [address]- 8[address] Mar, [facility] [place] [facility] [address] [id number] [place] [address]- 64[address] 14 Mar, 2013 [facility] [place] [facility] [address] [id number] [place] [address]- 9[address] 14 Mar, 2013 [facility] [place] [facility] [address] [id number] [place] [address]- 9176 Mar, [facility] [place] [facility] [address] [id number] [place] [address]- 1204 Mar, [facility] [place] [facility] [address] [id number] [place] [address]- 7156 07 Mar, 2013 [facility] [place] [facility] [address] [id number] [place] [address]- 8016 07 Mar, 2013 [facility] [place] [facility] [address] [id number] [place] [address]- 9340 06 Mar, 2013 [facility] [place] [facility] [address] [id number] [place] [address]- 4523 Mar, [facility] [place] [facility] [address] [id number] [place] [address]- 7732 Mar, [facility] [place] [facility] [address] [id number] [place] [address]- 8074 Mar, [facility] [place] [facility] [address] [id number] [place] [address]- 5685 Feb, [facility] [place] [facility] [address] [id number] [place] [address]- 1601 Feb, [facility] [place] [facility] [address] [id number] [place] [address]- 46[address] Feb, [facility] [place] [facility] [address] [id number] [place] [address]- 6541 Feb, [facility] [place] [facility] [address] [id number] [place] [address]- 3822 Feb, [facility] [place] [facility] [address] [id number], [place] [address]- 6[address] Feb, [facility] [place] [facility] [address] [id number] [place] [address]- 9610 Feb, [facility] [place] [facility] [address] [id number], [place] [address]- 9027 Feb, [facility] [place] [facility] [address] [id number], [place] [address]- [address] Feb, [facility] [place] [facility] [address] [id number], [place] [address]- 1367 15 Feb, 2013 [facility] [place] [facility] [address] [id number] [place] [address]- 2327 15 Feb, 2013 [facility] [place] [facility] [address] [id number], [place] [address]- [address]85 14 Feb, 2013 [facility] [place] [facility] [address] [id number] [place] [address] 26 Jan, 2013 [facility] [place] [facility] [address] [facility] [id number] [place] [address]- 28[address] Jan, [facility] [address] [facility] [id number], [place] [address]- [address] Jan, [facility] [address] [facility] [id number] [place] [address]- 7269 Jan, [facility] [address] [facility] [id number], [place] [address]- 6564 Jan, [facility] [address] [facility] [id number], [place] [address]- 0367 Jan, [facility] [address] [facility] [id number], [place] [address]- [address] Jan, IMMUNIZATIONS No Known Immunizations SOCIAL HISTORY Never Assessed REASON FOR VISIT Lab results PLAN OF CARE VITAL SIGNS MEDICATIONS Unknown [...] procedures Hospitalization History Aseptic meningitis at [facility] 01/13/18 to 01/20/18
--- OUTSIDE RECORDS SUMMARY | 2018-05-10 07:33 | XMS REPORT ---
Author Author EDVINJOSE SERRANO [facility] Address [address] [place] [address] Care Team Providers Care Orientation & Mobility Specialist Name Role Phone JOSE DOBBS Unavailable PROBLEMS Type Condition ICD9-CM Code XAC92-AV Code Onset Dates Condition Status SNOMED Code Problem Lumbar back pain with radiculopathy affecting right lower extremity M54.16 Active 040942519 Problem Lumbar back pain with radiculopathy affecting left lower extremity M54.16 Active 876133513 Problem Non-seasonal allergic rhinitis, unspecified trigger J30.89 Active 03053896 Problem Moderate persistent asthma without complication J45.40 Active 093251007 Problem Body mass index (BMI) of 40.0-44.9 in adult Z68.41 Active 099227318 Problem Morbid (severe) obesity due to excess calories E66.01 Active 31055788371860 Problem Benign essential hypertension I10 Active 0047686 Problem Osteogenesis imperfecta Q78.0 Active 09768981 Problem Cervical spinal stenosis M48.02 Active 04224821 Problem Fibromyalgia M79.7 Active 878515658 Problem Sinus tachycardia R00.0 Active 48155869 Problem Hypertriglyceridemia E78.1 Active 640295778 Problem Migraine with aura and without status migrainosus, not intractable G43.109 Active 7021684 Problem Chronic pain syndrome G89.4 Active 215359870 Problem Myofascial pain syndrome M79.1 Active 237281568 Problem Type 2 diabetes mellitus without complications E11.9 Active 020434809 Problem Cervicalgia M54.2 Active 14775439 Problem Lumbago with sciatica, left side M54.42 Active 069854575 Problem Lichen sclerosus L90.0 Active 90924958 Problem Mixed hyperlipidemia E78.2 Active 911912319 Problem Conversion disorder F44.9 Active 08441925 Problem Leukocytosis, unspecified type D72.829 Active 322247680 Problem Bipolar 1 disorder F31.9 Active 663235573 Problem Interstitial cystitis N30.10 Active 734950434 Problem Other chronic pain G89.29 Active 20941150 Problem nursing home current use of insulin Z79.4 Active 960417589 Problem Polypharmacy Z79.899 Active 080735445 Problem Tobacco use disorder F17.200 Active 975665153 Problem AARON (nonalcoholic steatohepatitis) K75.81 Active 098768874 Problem Osteoporosis, unspecified osteoporosis type, unspecified pathological fracture presence M81.0 Active 98169692 ALLERGIES No Information ENCOUNTERS Encounter Location Date Diagnosis [place] [address] [address] Feb, [facility] General Specific [address] [id number] [place] [address] Feb Chronic pain syndrome G89.4 ; Conversion disorder F44.9 and Bipolar 1 disorder F31.9 [facility] [address] [id number] [place] [address] Feb Chronic pain syndrome G89.4 ; Osteogenesis imperfecta Q78.0 ; Migraine with aura and without status migrainosus, not intractable G43.109 ; Cervical spinal stenosis M48.02 ; Lumbar back pain with radiculopathy affecting left lower extremity M54.16 ; Lumbar back pain with radiculopathy affecting right lower extremity M54.16 and Conversion disorder F44.9 [place] [address] [place] [id number] [address] Feb, [facility] [address] [id number] [place] [address] Jan [facility] [address] [id number] [place] [address] Jan Nausea and vomiting in adult R11.2 ; Fever in other diseases R50.81 and Diarrhea of presumed infectious origin R19.7 [place] [address] [address] Jan, [place] [address] [place] [id number] [address] Jan, [facility] [address] [id number] [place] [address] Jan [facility] [address] [id number] [place] [address] Jan Polyarthralgia M25.50 ; Acute pharyngitis due to other specified organisms J02.8 ; Other viral agents as the cause of diseases classified elsewhere B97.89 and Fever, unspecified fever cause R50.9 [address] [address] 17 Jan, 2018 Type 2 diabetes mellitus without complications E11.9 [facility] [address] [id number] [place] [address] Jan [facility] [address] [id number] [place] [address] Jan Migraine with aura and without status migrainosus, not intractable G43.109 and Tendinitis of right forearm M77.9 [facility] General Specific [address] [id number] [place] [address] Jan [facility] [address] [id number] [place] [address] Dec 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 ; Adverse effect of unspecified drugs, medicaments and biological substances, initial encounter T50.905A ; Myofascial pain syndrome M79.1 ; Non-intractable vomiting with nausea, unspecified vomiting type R11.2 ; Polypharmacy Z79.899 and BMI 40.0-44.9, adult Z68.41 [place] [address] [address] Dec, Conversion disorder F44.9 and BMI 40.0-44.9, adult Z68.41 [place] [id number] [place] [address] Dec, [facility] [address] [id number] [place] [address] Dec [place] [address] [place] [id number] [place] [address] Dec, [facility] [address] [id number] [place] [address] Dec Type 2 diabetes mellitus without complications E11.9 and BMI 40.0-44.9, adult Z68.41 [facility] [address] [id number] [place] [address] Nov [facility] [address] [id number] [place] [address] Nov [facility] [address] [id number] [place] [address] Nov Migraine with aura and without status [...] extremity M54.16 and BMI 40.0-44.9, adult Z68.41 [facility] [address] [address] Nov, Other chronic pain G89.29 [facility] [address] [id number] [place] [address] Nov Moderate persistent asthma with exacerbation J45.41 ; Acute bronchitis due to other specified organisms J20.8 ; Tobacco use disorder F17.200 ; Benign essential hypertension I10 ; Hyperlipidemia, unspecified hyperlipidemia type E78.5 ; Fibromyalgia M79.7 ; Interstitial cystitis N30.10 ; Polypharmacy Z79.899 ; Other chronic pain G89.29 ; Non-seasonal allergic rhinitis, unspecified trigger J30.89 and BMI 40.0-44.9, adult Z68.41 [facility] [address] [id number] [address] Nov, Other chronic pain G89.29 ; Fibromyalgia M79.7 ; Bipolar 1 disorder F31.9 and BMI 40.0-44.9, adult Z68.41 [facility] [address] [id number] [place] [address] 21 Oct, 2017 Other chronic pain G89.29 [facility] [address] [id number], [place] [address] 15 Oct, 2017 Type 2 diabetes mellitus without complications E11.9 and Other chronic pain G89.29 [facility] [address] [id number], [place] [address] 14 Oct, 2017 Type 2 diabetes mellitus without complications E11.9 ; nursing home current use of insulin Z79.4 ; Obesity, [...] type E78.5 and BMI 40.0-44.9, adult Z68.41 [place] [address] [address] Aug, [facility] [id number] [address] Aug, [facility] [address] [place] [address] September, [facility] [address] [place] [address] September, [facility] [address] [address] Aug, [place] [address] [place] [id number] [place] [address] Aug, [facility] [place] [facility] [address] [id number] [place] [address] Jul, [facility] [place] [facility] [address] [id number] [place] [address] Jul, [facility] [place] [facility] [address] [id number] [place] [address] Jun, [facility] [place] [facility] [address] [id number] [place] [address] Jun, [facility] [place] [facility] [address] [id number] [place] [address] Jun, [facility] [place] [facility] [address] [id number] [place] [address] Jun, [facility] [place] [facility] [address] [id number] [place] [address] Jun, [facility] [place] [facility] [address] [id number] [place] [address] Jun, [facility] [place] [facility] [address] [id number] [place] [address] May, [facility] [place] [facility] [address] [id number] [place] [address] May, [facility] [place] [facility] [address] [id number] [place] [address] May, [facility] [place] [facility] [address] [id number] [place] [address] May, [facility] [place] [facility] [address] [id number] [place] [address] May, [facility] [place] [facility] [address] [id number] [place] [address] May, [facility] [place] [facility] [address] [id number] [address] May, [facility] [address] [id number] [place] [address] May, [facility] [place] [facility] [address] [id number] [place] [address] Apr, [facility] [place] [facility] [address] [id number] [place] [address] Apr, [facility] [place] [facility] [address] [id number] [place] [address] Apr, [facility] [place] [facility] [address] [id number] [place] [address] Apr, [facility] [place] [facility] [address] [id number] [place] [address] Apr, [facility] [place] [facility] [address] [id number] [place] [address] Mar, [facility] [place] [facility] [address] [id number] [place] [address] Mar, [facility] [place] [facility] [address] [id number] [place] [address] Mar, [facility] [place] [facility] [address] [id number] [place] [address] Mar, [facility] [place] [facility] [address] [id number] [address] Mar, [facility] [place] [facility] [address] [id number] [address] 19 Mar, 2013 [facility] [place] [facility] [address] [id number] [address] 18 Mar, 2013 [facility] [place] [facility] [address] [id number] [place] [address] 18 Mar, 2013 [facility] [place] [facility] [address] [id number] [place] [address] 14 Mar, 2013 [facility] [place] [facility] [address] [id number] [place] [address]- [address] 14 Mar, 2013 [facility] [address] [id number] [place] [address]- [address] 12 Mar, 2013 [facility] [place] [facility] [address] [id number] [place] [address]- [address] 12 Mar, 2013 [facility] [address] [id number] [place] [address]- [address] 07 Mar, 2013 [facility] [place] [facility] [address] [id number] [place] [address]- [address] 07 Mar, 2013 [facility] [address] [id number] [place] [address]- [address] 06 Mar, 2013 [facility] [place] [facility] [address] [id number] [place] [address]- [address] Mar, [facility] [place] [facility] [address] [id number] [place] [address]- [address] Mar, [facility] [address] [id number] [place] [address]- [address] Mar, [facility] [place] [facility] [address] [id number] [place] [address]- [address] Feb, [facility] [address] [id number] [place] [address]- [address] Feb, [facility] [place] [facility] [address] [id number] [place] [address]- [address] Feb, [facility] [place] [facility] [address] [id number] [place] [address]- [address] Feb, [facility] [place] [facility] [address] [id number] [place] [address]- [address] Feb, [facility] [place] [facility] [address] [id number] [place] [address]- [address] Feb, [facility] [place] [facility] [address] [id number] [place] [address]- [address] Feb, [facility] [id number] [address] Feb, [facility] [address] [address] Feb, [facility] [address] [address] Feb, [facility] [address] [address] Feb, [facility] [address] [address] Feb, [facility] [address] [address] Jan, [facility] [address] [place] [address] Jan, [facility] [address] [address] 24 Jan, 2013 [facility] [address] [address]- [address] Jan, [facility] [address] [address] Jan, [facility] [address] [address] Jan, [facility] [address] [address] 18 Jan, 2013 IMMUNIZATIONS No Known Immunizations SOCIAL HISTORY Never Assessed REASON FOR VISIT Discussion with Linwood Lovett and referral for [facility] PLAN OF CARE VITAL SIGNS [...] procedures Hospitalization History Aseptic meningitis at [facility] 01/13/18 to 01/20/18
--- OUTSIDE RECORDS SUMMARY | 2018-05-10 07:33 | XMS REPORT ---
Author Author JOSE L TOBIAS [facility] Address [address] [place] [address] Care Team Providers Care Vessel Manager Name Role Phone MICHELINE JOSE L Unavailable PROBLEMS Type Condition ICD9-CM Code OOB95-LM Code Onset Dates Condition Status SNOMED Code Problem Lumbar back pain with radiculopathy affecting right lower extremity M54.16 Active 564271933 Problem Lumbar back pain with radiculopathy affecting left lower extremity M54.16 Active 418489510 Problem Non-seasonal allergic rhinitis, unspecified trigger J30.89 Active 14860826 Problem Moderate persistent asthma without complication J45.40 Active 155681786 Problem Body mass index (BMI) of 40.0-44.9 in adult Z68.41 Active 015246122 Problem Morbid (severe) obesity due to excess calories E66.01 Active [id number] Problem Benign essential hypertension I10 Active 0046040 Problem Osteogenesis imperfecta Q78.0 Active 94736629 Problem Cervical spinal stenosis M48.02 Active 67412811 Problem Fibromyalgia M79.7 Active 131527980 Problem Sinus tachycardia R00.0 Active 33621396 Problem Hypertriglyceridemia E78.1 Active 620296680 Problem Migraine with aura and without status migrainosus, not intractable G43.109 Active 8995736 Problem Chronic pain syndrome G89.4 Active 330020309 Problem Myofascial pain syndrome M79.1 Active 953383375 Problem Type 2 diabetes mellitus without complications E11.9 Active 463051681 Problem Cervicalgia M54.2 Active 74558640 Problem Lumbago with sciatica, left side M54.42 Active 828869441 Problem Lichen sclerosus L90.0 Active 26916205 Problem Mixed hyperlipidemia E78.2 Active 314624788 Problem Conversion disorder F44.9 Active 41239071 Problem Leukocytosis, unspecified type D72.829 Active 549714599 Problem Bipolar 1 disorder F31.9 Active 919566808 Problem Interstitial cystitis N30.10 Active 090270795 Problem Other chronic pain G89.29 Active 87538487 Problem 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 [employer] [address] [id number] [place] [address] Feb Chronic pain syndrome G89.4 ; Conversion disorder F44.9 and Bipolar [address] [facility] [address] [id number] [place] [address] Feb Chronic pain syndrome G89.4 ; Osteogenesis imperfecta Q78.0 ; Migraine with aura and without status migrainosus, not intractable G43.109 ; Cervical spinal stenosis M48.02 ; Lumbar back pain with radiculopathy affecting left lower extremity M54.16 ; Lumbar back pain with radiculopathy affecting right lower extremity M54.16 and Conversion disorder F44.9 [place] [address] [place] [id number] [address] Feb, [facility] [address] [id number] [place] [address] [facility] [address] [id number] [place] [address] Jan Nausea and vomiting in adult R11.2 ; Fever in other diseases R50.81 and Diarrhea of presumed infectious origin R19.7 [place] [address] [address] Jan, [place] [address] [place] [id number] [address] Jan, [facility] [address] [id number] [place] [address] [facility] [address] [id number] [place] [address] Jan Polyarthralgia M25.50 ; Acute pharyngitis due to other specified organisms J02.8 ; Other viral agents as the cause of diseases classified elsewhere B97.89 and Fever, unspecified fever cause R50.9 [address] [address] 17 Jan, 2018 Type 2 diabetes mellitus without complications E11.9 [facility] [address] [id number] [place] [address] [facility] [address] [id number] [place] [address] Jan Migraine with aura and without status migrainosus, not intractable G43.109 and Tendinitis of right forearm M77.9 [facility] [employer] [address] [id number] [place] [address] [facility] [address] [id number] [place] [address] Dec 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 ; Adverse effect of unspecified drugs, medicaments and biological substances, initial encounter T50.905A ; Myofascial pain syndrome M79.1 ; Non-intractable vomiting with nausea, unspecified vomiting type R11.2 ; Polypharmacy Z79.899 and BMI 40.0-44.9, adult Z68.41 [place] [address] [address] Dec, Conversion disorder F44.9 and BMI 40.0-44.9, adult Z68.41 [place] [address] [place] [address] Dec, [facility] [address] [id number] [place] [address] Dec [place] [address] [place] [id number] [place] [address] Dec, [facility] [address] [id number] [place] [address] Dec Type 2 diabetes mellitus without complications E11.9 and BMI 40.0-44.9, adult Z68.41 [facility] [address] [id number] [place] [address] [facility] [address] [id number] [place] [address] [facility] [address] [id number] [place] [address] Nov Migraine with aura and without status [...] extremity M54.16 and BMI 40.0-44.9, adult Z68.41 [facility] [place] [address] [address] Nov, Other chronic pain G89.29 [facility] [address] [id number] [place] [address] Nov Moderate persistent asthma with exacerbation J45.41 ; Acute bronchitis due to other specified organisms J20.8 ; Tobacco use disorder F17.200 ; Benign essential hypertension I10 ; Hyperlipidemia, unspecified hyperlipidemia type E78.5 ; Fibromyalgia M79.7 ; Interstitial cystitis N30.10 ; Polypharmacy Z79.899 ; Other chronic pain G89.29 ; Non-seasonal allergic rhinitis, unspecified trigger J30.89 and BMI 40.0-44.9, adult Z68.41 [facility] [address] [id number], [place] [address] Nov, Other chronic pain G89.29 ; Fibromyalgia M79.7 ; Bipolar 1 disorder F31.9 and BMI 40.0-44.9, adult Z68.41 [facility] [address] [id number] [place] [address] 21 Oct, 2017 Other chronic pain G89.29 [facility] [address] [id number], [place] [address] 15 Oct, 2017 Type 2 diabetes mellitus without complications E11.9 and Other chronic pain G89.29 [facility] [address] [id number], [place] [address] 14 Oct, 2017 Type 2 diabetes mellitus without complications E11.9 ; penitentiary current use of insulin Z79.4 ; Obesity, [...] type E78.5 and BMI 40.0-44.9, adult Z68.41 [place] [address] [address] Aug, [facility] [place] [address] [id number] [address] Aug, [facility] [place] [address] [place] [address] September, [facility] [place] [address] [place] [address] September, [facility] [place] [address] [address] Aug, [place] [address] [place] [id number] [address] Aug, [facility] [place] [facility] [address] [id number] [place] [address] Jul, [facility] [place] [facility] [address] [id number] [place] [address] Jul, [facility] [place] [facility] [address] [id number] [place] [address] Jun, [facility] [place] [facility] [address] [id number] [place] [address] Jun, [facility] [place] [facility] [address] [id number] [place] [address] Jun, [facility] [place] [facility] [address] [id number] [place] [address] Jun, [facility] [place] [facility] [address] [id number] [place] [address] Jun, [facility] [place] [facility] [address] [id number] [place] [address] Jun, [facility] [place] [facility] [address] [id number] [place] [address] May, [facility] [place] [facility] [address] [id number] [place] [address] May, [facility] [place] [facility] [address] [id number] [place] [address] May, [facility] [place] [facility] [address] [id number] [place] [address] May, [facility] [place] [facility] [address] [id number] [place] [address] May, [facility] [place] [facility] [address] [id number] [place] [address] May, [facility] [place] [facility] [address] [id number] [address] May, [facility] [address] [id number] [place] [address] May, [facility] [place] [facility] [address] [id number] [place] [address] Apr, [facility] [place] [facility] [address] [id number] [place] [address] Apr, [facility] [place] [facility] [address] [id number] [place] [address] Apr, [facility] [place] [facility] [address] [id number] [place] [address] Apr, [facility] [place] [facility] [address] [id number] [place] [address] Apr, [facility] [place] [facility] [address] [id number] [place] [address] Mar, [facility] [place] [facility] [address] [id number] [place] [address] Mar, [facility] [place] [facility] [address] [id number] [place] [address] Mar, [facility] [place] [facility] [address] [id number] [place] [address] Mar, [facility] [place] [facility] [address] [id number] [address] Mar, [facility] [place] [facility] [address] [id number], [place] [address] 19 Mar, 2013 [facility] [place] [facility] [address] [id number], [place] [address] 18 Mar, 2013 [facility] [place] [facility] [address] [id number] [address] 18 Mar, 2013 [facility] [place] [facility] [address] [id number][place] [address] 14 Mar, 2013 [facility] [place] [facility] [address] [id number] [place] [address] 14 Mar, 2013 [facility] [address] [id number] [place] [address] 12 Mar, 2013 [facility] [place] [facility] [address] [id number] [place] [address] 12 Mar, 2013 [facility] [address] [id number] [place] [address] 07 Mar, 2013 [facility] [place] [facility] [address] [id number] [place] [address] 07 Mar, 2013 [facility] [address] [id number] [place] [address] 06 Mar, 2013 [facility] [place] [facility] [address] [id number] [place] [address] Mar, [facility] [place] [facility] [address] [id number] [place] [address] Mar, [facility] [address] [id number] [place] [address] Mar, [facility] [place] [facility] [address] [id number] [place] [address]- [address] Feb, [facility] [address] [id number] [place] [address] Feb, [facility] [place] [facility] [address] [id number] [place] [address]- [address] Feb, [facility] [place] [facility] [address] [id number] [place] [address]- [address] Feb, [facility] [place] [facility] [address] [id number] [place] [address]- [address] Feb, [facility] [place] [facility] [address] [id number] [place] [address]- [address] Feb, [facility] [place] [facility] [address] [id number] [place] [address] Feb, [facility] [place] [address] [address] Feb, [facility] [place] [address] [address] Feb, [facility] [place] [address] [address] Feb, [facility] [place] [id number] [place] [address] Feb, [facility] [place] [address] [address] 14 Feb, 2013 [facility] [place] [id number] [place] [address] Jan, [facility] [place] [id number] [place] [address]- [address] Jan, [facility] [place] [id number] [place] [address]- [address] 24 Jan, 2013 [facility] [place] [address] [address] Jan, [facility] [place] [address] [address] Jan, [facility] [place] [address] [address] Jan, [facility] [place] [address] [address] 18 Jan, 2013 IMMUNIZATIONS No Known Immunizations [...] procedures Hospitalization History Aseptic meningitis at [facility] 01/13/18 to 01/20/18
--- OUTSIDE RECORDS SUMMARY | 2018-05-10 07:34 | XMS REPORT ---
Author Author JOSE L TOBIAS Organization [facility] Address [address] [place] [address] Care Team Providers Care Steel Plate Caulker Name Role Phone MICHELINE JOSE L Unavailable PROBLEMS Type Condition ICD9-CM Code IPF43-LX Code Onset Dates Condition Status SNOMED Code Problem Lumbar back pain with radiculopathy affecting right lower extremity M54.16 Active 164173990 Problem Lumbar back pain with radiculopathy affecting left lower extremity M54.16 Active 462074828 Problem Non-seasonal allergic rhinitis, unspecified trigger J30.89 Active 20904242 Problem Moderate persistent asthma without complication J45.40 Active 403343963 Problem Body mass index (BMI) of 40.0-44.9 in adult Z68.41 Active 689056010 Problem Tobacco use disorder F17.200 Active 087729524 Problem Morbid (severe) obesity due to excess calories E66.01 Active 71977273879898 Problem Benign essential hypertension I10 Active 2680456 Problem Osteogenesis imperfecta Q78.0 Active 94098278 Problem Cervical spinal stenosis M48.02 Active 56049350 Problem Migraine with aura and without status migrainosus, not intractable G43.109 Active 4146515 Problem Sinus tachycardia R00.0 Active 88489258 Problem Myofascial pain syndrome M79.1 Active 015000820 Problem Conversion disorder F44.9 Active 08082249 Problem Cervicalgia M54.2 Active 11147782 Problem Lumbago with sciatica, left side M54.42 Active 764177594 Problem Fibromyalgia M79.7 Active 874339535 Problem Mixed hyperlipidemia E78.2 Active 760253504 Problem Hypertriglyceridemia E78.1 Active 401779811 Problem Leukocytosis, unspecified type D72.829 Active 881873323 Problem Lichen sclerosus L90.0 Active 23513238 Problem 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 Active 849073632 Problem Interstitial cystitis N30.10 Active 822572770 Problem Other chronic pain G89.29 Active 89286217 Problem Type 2 diabetes mellitus without complications E11.9 Active 284146996 Problem Osteoporosis, unspecified osteoporosis type, unspecified pathological fracture presence M81.0 Active 18346535 Problem Polypharmacy Z79.899 Active 917046504 Problem AARON (nonalcoholic steatohepatitis) K75.81 Active 256997325 Problem Bipolar 1 disorder F31.9 Active 862724038 ALLERGIES Substance Reaction Event Type Date Status Vicodin nausea and vomiting Drug Allergy Dec, Active Lyrica Unknown Drug Allergy Dec, Active Januvia pancreatitis Drug Allergy Dec, Active Bactrim rash Drug Allergy Dec, Active Aspirin abdominal pain Drug Allergy Dec, Active Tramadol Unknown Drug Allergy Dec, Active Methadone Unknown Drug Allergy Dec, Active ENCOUNTERS Encounter Location Date Diagnosis [address] [place] [address] Feb, [facility] [address] [id number] [place] [address] Jan [facility] [address] [id number] [place] [address] Jan Nausea and vomiting in adult R11.2 ; Fever in other diseases R50.81 and Diarrhea of presumed infectious origin R19.7 [address] [address] Jan, [place] [address] [place] [address] Jan, [facility] [address] [id number] [place] [address] Jan [facility] [address] [id number] [place] [address] Jan Polyarthralgia M25.50 ; Acute pharyngitis due to other specified organisms J02.8 ; Other viral agents as the cause of diseases classified elsewhere B97.89 and Fever, unspecified fever cause R50.9 [place] [address] [place] [address] Jan, Type 2 diabetes mellitus without complications E11.9 [facility] [address] [id number] [place] [address] Jan [facility] [address] [id number] [place] [address] Jan Migraine with aura and without status migrainosus, not intractable G43.109 and Tendinitis of right forearm M77.9 [facility] [address] [id number] [place] [address] Jan [facility] [address] [id number] [place] [address] Dec 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 ; Adverse effect of unspecified drugs, medicaments and biological substances, initial encounter T50.905A ; Myofascial pain syndrome M79.1 ; Non-intractable vomiting with nausea, unspecified vomiting type R11.2 ; Polypharmacy Z79.899 and BMI 40.0-44.9, adult Z68.41 [place] [address] [place] [id number] [address] Dec, Conversion disorder F44.9 and BMI 40.0-44.9, adult Z68.41 [place] [address], [place] [address] Dec, [facility] [address] [id number] [place] [address] Dec [place] [address] [place] [id number], [place] [address] Dec, [facility] [address] [id number] [place] [address] Dec Type 2 diabetes mellitus without complications E11.9 and BMI 40.0-44.9, adult Z68.41 [facility] [address] [id number] [place] [address] Nov [facility] [address] [id number] [place] [address] Nov [facility] [address] [id number] [place] [address] Nov Migraine with aura and without status [...] and BMI 40.0-44.9, adult Z68.41 [facility] [address] [facility] [id number] [place] [address] Nov, Other chronic pain G89.29 [facility] [address] [id number] [place] [address] Nov Moderate persistent asthma with exacerbation J45.41 ; Acute bronchitis due to other specified organisms J20.8 ; Tobacco use disorder F17.200 ; Benign essential hypertension I10 ; Hyperlipidemia, unspecified hyperlipidemia type E78.5 ; Fibromyalgia M79.7 ; Interstitial cystitis N30.10 ; Polypharmacy Z79.899 ; Other chronic pain G89.29 ; Non-seasonal allergic rhinitis, unspecified trigger J30.89 and BMI 40.0-44.9, adult Z68.41 [facility] [address] [id number] [address] Nov, Other chronic pain G89.29 ; Fibromyalgia M79.7 ; Bipolar 1 disorder F31.9 and BMI 40.0-44.9, adult Z68.41 [facility] [address] [id number] [address] Oct, Other chronic pain G89.29 [facility] [address] [id number] [address] 15 Oct, 2017 Type 2 diabetes mellitus without complications E11.9 and Other chronic pain G89.29 [facility] [address] [id number], [place] [address] 14 Oct, 2017 Type 2 diabetes mellitus without complications E11.9 ; 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 ; Obesity, [...] and BMI 40.0-44.9, adult Z68.41 [place] [address] [place] [id number] [place] [address] Aug, [facility] [address] [place] [id number] [place] [id number]- [address] Aug, [facility] [address] [place] [id number] [place] [address] [id number]- [address] September, [facility] [address] [place] [address] [id number] [place] [id number]- [address] September, [facility] [address], [place] [address] Aug, [facility] [address] [place] [id number] [place] [id number] Aug, [facility] [address] [place] [address] [id number]- [address] Jul, [facility] [address] [place] [id number] [place] [address] Jul, [facility] [address] Jun, [facility] [address] [place] [id number] [place] [address] Jun, [facility] [place] [facility] [address] [id number] [place] [address] Jun, [facility] [place] [facility] [address] [id number] [place] [address] Jun, [facility] [place] [facility] [address] [id number] [place] [address] Jun, [facility] [place] [facility] [address] [id number] [place] [address] Jun, [facility] [place] [facility] [address] [id number] [place] [address] May, [facility] [place] [facility] [address] [id number] [place] [address] May, [facility] [place] [facility] [address] [id number] [place] [address] May, [facility] [place] [facility] [address] [id number] [place] [address] May, [facility] [place] [facility] [address] [id number] [place] [address] May, [facility] [place] [facility] [address] [id number] [place] [address] May, [facility] [place] [facility] [address] [id number] [place] [address] May, [facility] [place] [facility] [address] [id number] [place] [address] May, [facility] [place] [facility] [address] [id number] [place] [address] 2006 Apr, [facility] [place] [facility] [address] [id number] [place] [address] Apr, [facility] [place] [facility] [address] [id number] [place] [address] Apr, [facility] [place] [facility] [address] [id number] [place] [address] Apr, [facility] [place] [facility] [address] [id number] [place] [address] Apr, [facility] [place] [facility] [address] [id number] [place] [address] Mar, [facility] [place] [facility] [address] [id number] [place] [address]- 9598 Mar, [facility] [place] [facility] [address] [id number] [place] [address]- [address] Mar, [facility] [place] [facility] [address] [id number] [place] [address]- 5968 Mar, [facility] [place] [facility] [address] [id number] [place] [address] Mar, [facility] [place] [facility] [address] [id number], [place] [address] Mar, [facility] [place] [facility] [address] [id number] [place] [address]- [address] Mar, [facility] [place] [facility] [address] [id number], [place] [address] 18 Mar, 2013 [facility] [place] [facility] [address] [id number], [place] [address]- [address] 14 Mar, 2013 [facility] [place] [facility] [address] [id number], [place] [address] 14 Mar, 2013 [facility] [place] [facility] [address] [id number], [place] [address]- [address] Mar, [facility] [place] [facility] [address] [id number], [place] [address] Mar, [facility] [place] [facility] [address] [facility] [id number], [place] [address] Mar, [facility] [place] [facility] [address] [id number] [place] [address]- 8261 07 Mar, 2012 [facility] [place] [facility] [address] [id number] [place] [address]- [address] 06 Mar, 2012 [facility] [place] [facility] [address] [id number] [place] [address] 06 Mar, 2012 [facility] [place] [facility] [address] [id number] [place] [address]- [address] 2012 [facility] [place] [facility] [address] [id number] [place] [address] Mar, [facility] [place] [facility] [address] [id number] [place] [address]- 1779 Feb, [facility] [place] [facility] [address] [id number] [place] [address]- 3775 Feb, [facility] [place] [facility] [address] [id number] [place] [address]- 6409 Feb, [facility] [place] [facility] [address] [id number] [place] [address]- 0382 Feb, [facility] [place] [facility] [address] [id number] [place] [address]- 3690 Feb, [facility] [place] [facility] [address] [id number] [place] [address]- 1736 Feb, [facility] [place] [facility] [address] [id number] [place] [address]- 5[address] Feb, [facility] [place] [facility] [address] [id number] [place] [address]- 7136 Feb, [facility] [place] [facility] [address] [id number] [place] [address]- 8077 Feb, [facility] [place] [facility] [address] [id number] [place] [address]- [address] 15 Feb, 2013 [facility] [place] [facility] [address] [id number] [place] [address] 15 Feb, 2013 [facility] [address], [place] [address] Feb, [facility] [address], [place] [address] Jan, [facility] [address], [place] [address] Jan, [facility] [address] [place] [id number] [place] [address]- [address] Jan, [facility] [address] [place] [address] [id number] [place] [address]- 4[address] Jan, [facility] [address] [place] [address] [id number] [place] [address]- 0763 Jan, [facility] [address] [place] [address] [id number] [place] [address]- 1071 Jan, [facility] [address] [place] [address]- [address] Jan, IMMUNIZATIONS No Known Immunizations SOCIAL HISTORY Never Assessed REASON FOR VISIT Pain followup/ER f/u (LH) headache/neck pain; records requested Pt in to discuss pain options AMY Hancock PLAN OF CARE Activity Details Follow Up with PCP Reason: VITAL SIGNS Height 53.5 in 2018-01-23 Weight 169.1 lbs 2018-01-23 Temperature 98.1 degrees Fahrenheit 2018-01-23 Heart Rate 102 bpm 2018-01-23 Respiratory Rate 20 2018-01-23 BMI 41.53 kg/m2 2018-01-23 Blood pressure systolic 144 mmHg 2018-01-23 Blood pressure diastolic 70 mmHg 2018-01-23 MEDICATIONS Medication Instructions Dosage Frequency Start Date End Date Duration Status Flomax 0.4 MG Orally Once a day 1 capsule 24h Active Savella 50 MG Orally Twice a day 1 tablet 12h Not-Taking Montelukast Sodium 10 mg Orally Once a day 1 tablet 24h 30 days Active Chantix 1 MG Orally Twice a day 1 tablet 12h 30 day(s) Not-Taking Sumatriptan Succinate 100 mg Orally once 1 tablet at the start of a migraine ; may take another one two hours later if needed 1 dose Active Vitamin D-3 5000 UNIT Orally Once a day 1 tablet 24h Active Anoro Ellipta 62.5-25 MCG/INH Inhalation Once a day 1 puff 24h 12 Feb, 2018 Active Reclast 5 MG/100ML Intravenous Once per year as directed 1 dose Active Voltaren 1 % Active Vitamin C & E Complex 6,000mg by oral route Once a day 1 tablet 24h Active Geodon 80 MG Orally Once a day 1 capsule with food 24h Active Cymbalta 30 MG Orally Once a day 1 capsule 24h Active Cetirizine HCl 10 MG Orally Once a day 1 tablet 24h Active Metoprolol Succinate ER 100 MG Orally Once a day 1 tablet 24h 30 days Active KP Cetirizine HCl 10 TAKE 1 TABLET BY MOUTH EVERY DAY Not- Taking Mobic 15 mg Orally Once a day 1 tablet 24h 05 Nov, 2017 30 day(s) Active Pyridium 200 mg Orally Three times a day 1 tablet after meals 8h 5 May, 2018 30 days Not-Taking Fish Oil 1200 MG Orally Once a day 1 capsule 24h Active Myrbetriq 25 MG Orally Once a day 1 tablet 24h 30 days Active Fenofibrate 145 MG Orally Once a day 1 tablet with food 24h 90 days Active NovoLog 100 UNIT/ML Subcutaneous At Meals 8 units, increasing 1 for every 50 Active Benadryl 25 MG Orally every 8 hrs 1 capsule as needed 8h Active Flovent HFA 220 MCG/ACT Inhalation Twice a day 1 puff 12h Feb, Active Atorvastatin Calcium 80 MG Orally Once a day 1 tablet 24h 30 days Active Lantus 100 UNIT/ML 54 units daily Active Nortriptyline HCl 10 mg Orally Once a day 1 capsule 24h 30 days Active Ventolin HFA 108 (90 Base) MCG/ACT Inhalation every 6 hrs 2 puffs as needed 6h Active Potassium Chloride ER 10 MEQ Orally Twice a day 1 tablet with food 12h Feb, 30 days Active Baclofen 10 MG Orally Three times a day 1 tablet with food or milk 8h Active Magnesium 200 MG Orally Once a day 2 tablets with a meal 24h Active Bumetanide 1 MG Orally Once a day 1 tablet 24h 30 days Active Geodon 40 mg Orally Once a day 1 capsule with food 24h Active RESULTS No Results PROCEDURES Procedure Date Ordered Result Body Site [facility] VISIT ESTABLISHED PATIENT Jan 23, 2018 INSTRUCTIONS MEDICATIONS ADMINISTERED No Known Medications [...] procedures Hospitalization History Aseptic meningitis at [facility] 01/13/18 to 01/20/18
--- OUTSIDE RECORDS SUMMARY | 2018-05-10 07:34 | XMS REPORT ---
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
--- OUTSIDE RECORDS SUMMARY | 2018-05-10 07:34 | XMS REPORT ---
Author Author JOSE DOBBS [facility] Address [address] [place] [address] Care Team Providers Care Transportation Modeler Name Role Phone JOSE DOBBS Unavailable PROBLEMS ALLERGIES ENCOUNTERS IMMUNIZATIONS No Known Immunizations SOCIAL HISTORY No smoking Hx information available REASON FOR VISIT PLAN OF CARE VITAL SIGNS MEDICATIONS RESULTS No Results PROCEDURES INSTRUCTIONS MEDICATIONS ADMINISTERED No Known Medications MEDICAL (GENERAL) HISTORY
--- OUTSIDE RECORDS SUMMARY | 2018-05-10 07:35 | XMS REPORT ---
Author Author EDVINJOSE SERRANO [facility] Address [address] [place] [address] Care Team Providers Care Adolescent Counselor Name Role Phone JOSE DOBBS Unavailable PROBLEMS Type Condition ICD9-CM Code JCY05-PE Code Onset Dates Condition Status SNOMED Code Problem Lumbar back pain with radiculopathy affecting right lower extremity M54.16 Active 146745790 Problem Lumbar back pain with radiculopathy affecting left lower extremity M54.16 Active 393666349 Problem Non-seasonal allergic rhinitis, unspecified trigger J30.89 Active 08629289 Problem Moderate persistent asthma without complication J45.40 Active 135310129 Problem Body mass index (BMI) of 40.0-44.9 in adult Z68.41 Active 066228662 Problem Tobacco use disorder F17.200 Active 284681176 Problem Morbid (severe) obesity due to excess calories E66.01 Active 04340312358074 Problem Benign essential hypertension I10 Active 8125930 Problem Osteogenesis imperfecta Q78.0 Active 17984975 Problem Cervical spinal stenosis M48.02 Active 28194679 Problem Migraine with aura and without status migrainosus, not intractable G43.109 Active 0469349 Problem Sinus tachycardia R00.0 Active 57984976 Problem Myofascial pain syndrome M79.1 Active 688595989 Problem Conversion disorder F44.9 Active 00284612 Problem Cervicalgia M54.2 Active 50947604 Problem Lumbago with sciatica, left side M54.42 Active 544569834 Problem Fibromyalgia M79.7 Active 425262579 Problem Mixed hyperlipidemia E78.2 Active 545025530 Problem Hypertriglyceridemia E78.1 Active 977580853 Problem Leukocytosis, unspecified type D72.829 Active 402965279 Problem Lichen sclerosus L90.0 Active 76539259 Problem 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 Active 070175727 Problem Interstitial cystitis N30.10 Active 799082425 Problem Other chronic pain G89.29 Active 37195605 Problem Type 2 diabetes mellitus without complications E11.9 Active 591660394 Problem Osteoporosis, unspecified osteoporosis type, unspecified pathological fracture presence M81.0 Active 69660603 Problem Polypharmacy Z79.899 Active 364039061 Problem AARON (nonalcoholic steatohepatitis) K75.81 Active 464559638 Problem Bipolar 1 disorder F31.9 Active 297022472 ALLERGIES No Information ENCOUNTERS Encounter Location Date Diagnosis [facility] [place] [employer] [address] [id number] [place] [address] Jan [facility] [place] [employer] [address] [id number] [place] [address] Jan Nausea and vomiting in adult R11.2 ; Fever in other diseases R50.81 and Diarrhea of presumed infectious origin R19.7 [place] [id number] [place] [address] Jan, [place] [id number] [place] [address] Jan, [facility] [place] [employer] [address] [id number] [place] [address] Jan [facility] [place] [employer] [address] [id number] [place] [address] 19 Jan Polyarthralgia M25.50 ; Acute pharyngitis due to other specified organisms J02.8 ; Other viral agents as the cause of diseases classified elsewhere B97.89 and Fever, unspecified fever cause R50.9 [place] [address] [place] [address] 17 Jan, 2018 Type 2 diabetes mellitus without complications E11.9 [facility] [place] [employer] [address] [id number] [place] [address] Jan [facility] [place] [address] [id number] [place] [address] 10 Jan Migraine with aura and without status migrainosus, not intractable G43.109 and Tendinitis of right forearm M77.9 [facility] [employer] [address] [id number] [place] [address] Jan [facility] [place] [address] [id number] [place] [address] Dec 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 ; Adverse effect of unspecified drugs, medicaments and biological substances, initial encounter T50.905A ; Myofascial pain syndrome M79.1 ; Non-intractable vomiting with nausea, unspecified vomiting type R11.2 ; Polypharmacy Z79.899 and BMI 40.0-44.9, adult Z68.41 [place] [address] [id number] [address] Dec, Conversion disorder F44.9 and BMI 40.0-44.9, adult Z68.41 [place] [address] [id number] [address] Dec, [facility] [place] [address] [id number] [place] [address] Dec [place] [id number] [facility] [id number] [place] [address] Dec, [facility] [place] [address] [id number] [place] [address] Dec Type 2 diabetes mellitus without complications E11.9 and BMI 40.0-44.9, adult Z68.41 [facility] [place] [address] [id number] [place] [address] Nov [facility] [address] [id number] [place] [address] Nov [facility] [place] [address] [id number] [place] [address] Nov Migraine with aura and without status [...] extremity M54.16 and BMI 40.0-44.9, adult Z68.41 [facility] [address] [facility] [id number] [place] [address] Nov, Other chronic pain G89.29 [facility] [address] [id number] [place] [address] 09 Nov Moderate persistent asthma with exacerbation J45.41 ; Acute bronchitis due to other specified organisms J20.8 ; Tobacco use disorder F17.200 ; Benign essential hypertension I10 ; Hyperlipidemia, unspecified hyperlipidemia type E78.5 ; Fibromyalgia M79.7 ; Interstitial cystitis N30.10 ; Polypharmacy Z79.899 ; Other chronic pain G89.29 ; Non-seasonal allergic rhinitis, unspecified trigger J30.89 and BMI 40.0-44.9, adult Z68.41 [facility] [address] [id number], [place] [address] 05 Nov, 2017 Other chronic pain G89.29 ; Fibromyalgia M79.7 ; Bipolar 1 disorder F31.9 and BMI 40.0-44.9, adult Z68.41 [facility] [address] [id number], [place] [address] 21 Oct, 2017 Other chronic pain G89.29 [facility] [address] [id number], [place] [address] 15 Oct, 2017 Type 2 diabetes mellitus without complications E11.9 and Other chronic pain G89.29 [facility] [address] [id number], [place] [address] 14 Oct, 2017 Type 2 diabetes mellitus without complications E11.9 ; snf current use of insulin Z79.4 ; Obesity, [...] type E78.5 and BMI 40.0-44.9, adult Z68.41 [facility] [id number] [place] [address] Aug, [facility] [id number] [place] [address] Aug, [facility] [id number] [place] [address]- [address] September, [facility] [id number] [place] [address]- [address] September, [facility] [id number] [place] [address] Aug, [facility] [id number] [place] [address]32[address]- [address] Aug, [facility] [id number] [place] [address] Jul, [facility] [address]65100[place], [place] [address] Jul, [facility] [address]65100[place], [place] [address] Jun, [facility] [address]65100[place], [place] [address] Jun, [facility] [id number] [place] [address]- 5185 Jun, [facility] [address], [place] [address] Jun, [facility] [id number] [place] [address]- 4[address] Jun, [facility] [address] [id number] [place] [address] Jun, [facility] [place] [facility] [address] [id number] [place] [address] May, [facility] [place] [facility] [address] [id number] [place] [address] May, [facility] [place] [facility] [address] [id number] [place] [address] May, [facility] [place] [facility] [address] [id number] [place] [address] 39[address] May, [facility] [place] [facility] [address] [id number] [place] [address] May, [facility] [place] [address] [id number] [place] [address]26 May, [facility] [place] [facility] [address] [id number] [place] [address] May, [facility] [address] [id number] [place] [address] 4[address] May, [facility] [place] [facility] [address] [id number] [place] [address] 1437 Apr, [facility] [place] [facility] [address] [id number] [place] [address] 9674 Apr, [facility] [place] [facility] [address] [id number] [place] [address] 4733 Apr, [facility] [place] [facility] [address] [id number] [place] [address]- 0828 Apr, [facility] [place] [facility] [address] [id number] [place] [address] 7518 Apr, [facility] [place] [facility] [address] [id number] [place] [address]- 4373 Mar, [facility] [place] [facility] [address] [id number] [place] [address]- 5286 27 Mar, 2013 [facility] [address] [id number] [place] [address]- 2168 Mar, [facility] [place] [facility] [address] [id number] [place] [address]- 7825 Mar, [facility] [place] [facility] [address] [id number] [place] [address]- 3929 Mar, [facility] [place] [facility] [address] [id number] [place] [address]- 8622 19 Mar, 2013 [facility] [place] [facility] [address] [id number] [place] [address]- 5997 Mar, [facility] [place] [facility] [address] [id number] [place] [address]- 3277 18 Mar, 2013 [facility] [place] [facility] [address] [id number] [place] [address]- 8726 Mar, [facility] [place] [facility] [address] [id number] [place] [address]- 2800 14 Mar, 2013 [facility] [place] [facility] [address] [id number] [place] [address]- 4102 Mar, [facility] [place] [facility] [address] [id number] [place] [address]- 2595 12 Mar, 2013 [facility] [place] [facility] [address] [id number] [place] [address]- 8040 07 Mar, 2013 [facility] [place] [facility] [address] [id number] [place] [address]- 0725 07 Mar, 2013 [facility] [place] [facility] [address] [id number] [place] [address]- 9911 06 Mar, 2013 [facility] [place] [facility] [address] [id number] [place] [address]- 1289 06 Mar, 2013 [facility] [place] [facility] [address] [id number] [place] [address]- 2343 Mar, [facility] [place] [facility] [address] [id number] [place] [address]- 4774 Mar, [facility] [place] [facility] [address] [id number] [place] [address]- 1260 Feb, [facility] [place] [facility] [address] [id number] [place] [address]- 3806 Feb, [facility] [place] [facility] [address] [id number] [place] [address]- 8899 Feb, [facility] [place] [facility] [address] [id number] [place] [address]- 5228 Feb, [facility] [place] [facility] [address] [id number] [place] [address]- 7774 Feb, [facility] [place] [facility] [address] [id number] [place] [address]- 5154 Feb, [facility] [place] [facility] [address] [id number], [place] [address]- 7167 Feb, [facility] [place] [facility] [address] [id number] [place] [address]- 2531 Feb, [facility] [place] [facility] [address] [id number], [place] [address]- 2016 Feb, [facility] [place] [facility] [address] [id number], [place] [address]- 5798 15 Feb, 2013 [facility] [place] [facility] [address] [id number], [place] [address]- 38[address] 15 Feb, 2013 [facility] [place] [facility] [address] [id number] [place] [address]- 8291 14 Feb, 2013 [facility] [place] [facility] [address] [id number], [place] [address]- [address] 26 Jan, 2013 [facility] [place] [facility] [address] [id number] [place] [address]- 3222 25 Jan, 2013 [facility] [place] [facility] [address] [facility] [id number] [place] [address]- 4[address] 24 Jan, 2013 [facility] [address] [facility] [id number] [place] [address]- 1182 Jan, [facility] [address] [facility] [id number] [place] [address]- 5470 Jan, [facility] [address] [facility] [id number], [place] [address]- [address] Jan, [facility] [address] [facility] [id number][place] [address]- 2590 Jan, IMMUNIZATIONS No Known Immunizations SOCIAL HISTORY [...] Hospitalization History Aseptic meningitis at [facility] 01/13/18 to 01/20/18
--- OUTSIDE RECORDS SUMMARY | 2018-05-10 07:35 | XMS REPORT ---
Author Author EDVINJOSE SERRANO [facility] Address [address] [place] [address] Care Team Providers Care Board Certified Music Therapist Name Role Phone JOSE DOBBS Unavailable PROBLEMS Type Condition ICD9-CM Code CIL04-GF Code Onset Dates Condition Status SNOMED Code Problem Lumbar back pain with radiculopathy affecting right lower extremity M54.16 Active 296608159 Problem Lumbar back pain with radiculopathy affecting left lower extremity M54.16 Active 207635784 Problem Non-seasonal allergic rhinitis, unspecified trigger J30.89 Active 29376114 Problem Moderate persistent asthma without complication J45.40 Active 619813369 Problem Body mass index (BMI) of 40.0-44.9 in adult Z68.41 Active 855724022 Problem Tobacco use disorder F17.200 Active 780606856 Problem Morbid (severe) obesity due to excess calories E66.01 Active 50559750513488 Problem Benign essential hypertension I10 Active 3092858 Problem Osteogenesis imperfecta Q78.0 Active 93016170 Problem Cervical spinal stenosis M48.02 Active 86622117 Problem Migraine with aura and without status migrainosus, not intractable G43.109 Active 0720997 Problem Sinus tachycardia R00.0 Active 89437350 Problem Myofascial pain syndrome M79.1 Active 918766421 Problem Conversion disorder F44.9 Active 71657574 Problem Cervicalgia M54.2 Active 98650161 Problem Lumbago with sciatica, left side M54.42 Active 905512850 Problem Fibromyalgia M79.7 Active 719975164 Problem Mixed hyperlipidemia E78.2 Active 110120235 Problem Hypertriglyceridemia E78.1 Active 885573080 Problem Leukocytosis, unspecified type D72.829 Active 877047793 Problem Lichen sclerosus L90.0 Active 81179142 Problem 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.4 Active 612300247 Problem Interstitial cystitis N30.10 Active 129622808 Problem Other chronic pain G89.29 Active 12844962 Problem Type 2 diabetes mellitus without complications E11.9 Active 462913475 Problem Osteoporosis, unspecified osteoporosis type, unspecified pathological fracture presence M81.0 Active 71182092 Problem Polypharmacy Z79.899 Active 696645064 Problem AARON (nonalcoholic steatohepatitis) K75.81 Active 372090318 Problem Bipolar 1 disorder F31.9 Active 076705893 ALLERGIES No Information ENCOUNTERS Encounter Location Date Diagnosis [place] [id number] [address] 02 Feb, 2018 [facility] [place] [address] [id number] [place] [address] Jan [facility] [place] [address] [id number] [place] [address] Jan Nausea and vomiting in adult R11.2 ; Fever in other diseases R50.81 and Diarrhea of presumed infectious origin R19.7 [place] [address] [place] [id number] [place] [address] Jan, [place] [address] [place] [id number] [place] [address] Jan, [facility] [place] [address] [id number] [place] [address] Jan [facility] [place] [address] [id number] [place] [address] 19 Jan Polyarthralgia M25.50 ; Acute pharyngitis due to other specified organisms J02.8 ; Other viral agents as the cause of diseases classified elsewhere B97.89 and Fever, unspecified fever cause R50.9 [facility] [address] [address] 17 Jan, 2018 Type 2 diabetes mellitus without complications E11.9 [facility] [place] [address] [id number] [place] [address] 11 Jan [facility] [place] [address] [id number] [place] [address] Jan Migraine with aura and without status migrainosus, not intractable G43.109 and Tendinitis of right forearm M77.9 [facility] [address] [id number] [place] [address] [facility] [address] [id number] [place] [address] Dec 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 ; Adverse effect of unspecified drugs, medicaments and biological substances, initial encounter T50.905A ; Myofascial pain syndrome M79.1 ; Non-intractable vomiting with nausea, unspecified vomiting type R11.2 ; Polypharmacy Z79.899 and BMI 40.0-44.9, adult Z68.41 [facility] [id number] [address] Dec, Conversion disorder F44.9 and BMI 40.0-44.9, adult Z68.41 [place] [address] [place] [address] [id number] [address] Dec, [facility] [address] [id number] [place] [address] Dec [facility] [address] [id number] [address] Dec, [facility] [address] [id number] [place] [address] Dec Type 2 diabetes mellitus without complications E11.9 and BMI 40.0-44.9, adult Z68.41 [facility] [address] [id number] [place] [address] [facility] [address] [id number] [place] [address] [facility] [address] [id number] [place] [address] Nov Migraine with aura and without status [...] extremity M54.16 and BMI 40.0-44.9, adult Z68.41 [facility] [address] [facility] [id number] [place] [address] Nov, Other chronic pain G89.29 [facility] [address] [id number] [place] [address] Nov Moderate persistent asthma with exacerbation J45.41 ; Acute bronchitis due to other specified organisms J20.8 ; Tobacco use disorder F17.200 ; Benign essential hypertension I10 ; Hyperlipidemia, unspecified hyperlipidemia type E78.5 ; Fibromyalgia M79.7 ; Interstitial cystitis N30.10 ; Polypharmacy Z79.899 ; Other chronic pain G89.29 ; Non-seasonal allergic rhinitis, unspecified trigger J30.89 and BMI 40.0-44.9, adult Z68.41 [facility] [address] [id number] [address] 05 Nov, 2017 Other chronic pain G89.29 ; Fibromyalgia M79.7 ; Bipolar 1 disorder F31.9 and BMI 40.0-44.9, adult Z68.41 [facility] [address] [id number], [place] [address] Oct, Other chronic pain G89.29 [facility] [address] [id number], [place] [address] 15 Oct, 2017 Type 2 diabetes mellitus without complications E11.9 and Other chronic pain G89.29 [facility] [address] [id number], [place] [address] 14 Oct, 2017 Type 2 diabetes mellitus [...] type E78.5 and BMI 40.0-44.9, adult Z68.41 [facility] [id number] [place] [address] Aug, [facility] [id number] [place] [address]- [address] Aug, [facility] [id number] [place] [address] September, [facility] [id number] [place] [address] September, [facility] [id number] [place] [address]- [address] Aug, [facility] [id number] [place] [address]- [address] Aug, [facility] [address], [place] [address] Jul, [facility] [address] [id number], [place] [address] Jul, [facility] [address], [place] [address] Jun, [facility] [id number] [place] [address]- [address] Jun, [facility] [address] [address] Jun, [facility] [id number] [place] [address] Jun, [facility] [address] [id number] [place] [address] Jun, [facility] [place] [facility] [address] [id number] [place] [address] Jun, [facility] [address] [id number] [place] [address] May, [facility] [place] [facility] [address] [id number] [place] [address] May, [facility] [address] [id number] [place] [address] 43[address] May, [facility] [address] [id number] [place] [address] 44[address] May, [facility] [address] [id number] [place] [address] May, [facility] [address] [id number] [place] [address]- 1223 May, [facility] [address] [id number] [place] [address]- 8791 May, [facility] [address] [id number] [place] [address]- 3341 May, [facility] [address] [id number], [place] [address] Apr, [facility] [place] [facility] [address] [id number] [place] [address]- 9490 Apr, [facility] [place] [facility] [address] [id number] [place] [address]- 14[address] Apr, [facility] [place] [facility] [address] [id number] [place] [address]- 3669 Apr, [facility] [place] [facility] [address] [id number] [place] [address]- 4275 Apr, [facility] [place] [facility] [address] [id number] [place] [address]- 8[address] 27 Mar, 2013 [facility] [address] [id number] [place] [address]- 0673 Mar, [facility] [place] [facility] [address] [id number] [place] [address]- 7138 Mar, [facility] [place] [facility] [address] [id number] [place] [address]- 4167 Mar, [facility] [place] [facility] [address] [id number] [place] [address]- 5468 Mar, [facility] [place] [facility] [address] [id number] [place] [address]- 4434 Mar, [facility] [place] [facility] [address] [id number] [place] [address]- 1862 Mar, [facility] [place] [facility] [address] [id number] [place] [address]- 4159 Mar, [facility] [place] [facility] [address] [id number] [place] [address]- 9520 14 Mar, 2013 [facility] [place] [facility] [address] [id number] [place] [address]- 5093 14 Mar, 2013 [facility] [place] [facility] [address] [id number] [place] [address]- 2618 Mar, [facility] [place] [facility] [address] [id number] [place] [address]- 1835 Mar, [facility] [place] [facility] [address] [id number] [place] [address]- 6[address] 07 Mar, 2013 [facility] [place] [facility] [address] [id number] [place] [address]- [address] 07 Mar, 2013 [facility] [place] [facility] [address] [id number] [place] [address]- [address] 06 Mar, 2013 [facility] [place] [facility] [address] [id number] [place] [address]- 4099 Mar, [facility] [place] [facility] [address] [id number] [place] [address]- 5525 Mar, [facility] [place] [facility] [address] [id number] [place] [address]- 0592 Mar, [facility] [place] [facility] [address] [id number] [place] [address]- 6360 Feb, [facility] [place] [facility] [address] [id number] [place] [address]- 9710 Feb, [facility] [place] [facility] [address] [id number] [place] [address]- 7379 Feb, [facility] [place] [facility] [address] [id number] [place] [address]- 9925 Feb, [facility] [place] [facility] [address] [id number] [place] [address]- 0971 Feb, [facility] [place] [facility] [address] [id number], [place] [address]- [address] Feb, [facility] [place] [facility] [address] [id number] [place] [address]- 5263 Feb, [facility] [place] [facility] [address] [id number], [place] [address]- 2814 Feb, [facility] [place] [facility] [address] [id number], [place] [address]- [address] Feb, [facility] [place] [facility] [address] [id number], [place] [address]- [address] 15 Feb, 2013 [facility] [place] [facility] [address] [id number] [place] [address]- 8540 15 Feb, 2013 [facility] [place] [facility] [address] [id number], [place] [address]- 9231 14 Feb, 2013 [facility] [place] [facility] [address] [id number] [place] [address] 26 Jan, 2013 [facility] [place] [facility] [address] [facility] [id number] [place] [address]- [address] Jan, [facility] [address] [facility] [id number] [place] [address]- 1447 Jan, [facility] [address] [facility] [id number] [place] [address]- 7152 Jan, [facility] [address] [facility] [id number], [place] [address]- 8077 Jan, [facility] [address] [facility] [id number], [place] [address]- [address] Jan, [facility] [address] [facility] [id number], [place] [address]- [address] Jan, IMMUNIZATIONS No Known Immunizations SOCIAL HISTORY Never Assessed REASON FOR VISIT Summary of [facility] hospitalization in 12/2017 PLAN OF CARE VITAL SIGNS MEDICATIONS Unknown [...] procedures Hospitalization History Aseptic meningitis at [facility] 01/13/18 to 01/20/18
--- OUTSIDE RECORDS SUMMARY | 2018-05-10 07:35 | XMS REPORT ---
Author Author EDVINJOSE SERRANO [facility] Address [address] [place] [address] Care Team Providers Care Copy Holder Name Role Phone JOSE DOBBS Unavailable PROBLEMS Type Condition ICD9-CM Code PZT01-UE Code Onset Dates Condition Status SNOMED Code Problem Lumbar back pain with radiculopathy affecting right lower extremity M54.16 Active 240768131 Problem Lumbar back pain with radiculopathy affecting left lower extremity M54.16 Active 116983391 Problem Non-seasonal allergic rhinitis, unspecified trigger J30.89 Active 78117341 Problem Moderate persistent asthma without complication J45.40 Active 918828308 Problem Body mass index (BMI) of 40.0-44.9 in adult Z68.41 Active 070351817 Problem Tobacco use disorder F17.200 Active 481889958 Problem Morbid (severe) obesity due to excess calories E66.01 Active 27856129240375 Problem Benign essential hypertension I10 Active 5964816 Problem Osteogenesis imperfecta Q78.0 Active 65973316 Problem Cervical spinal stenosis M48.02 Active 58558897 Problem Migraine with aura and without status migrainosus, not intractable G43.109 Active 0660041 Problem Sinus tachycardia R00.0 Active 07539852 Problem Myofascial pain syndrome M79.1 Active 360524526 Problem Conversion disorder F44.9 Active 73932335 Problem Cervicalgia M54.2 Active 97992069 Problem Lumbago with sciatica, left side M54.42 Active 138611806 Problem Fibromyalgia M79.7 Active 948991586 Problem Mixed hyperlipidemia E78.2 Active 240126692 Problem Hypertriglyceridemia E78.1 Active 957164417 Problem Leukocytosis, unspecified type D72.829 Active 065983628 Problem Lichen sclerosus L90.0 Active 03617140 Problem 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 Active 892086270 Problem Interstitial cystitis N30.10 Active 405929117 Problem Other chronic pain G89.29 Active 00843094 Problem Type 2 diabetes mellitus without complications E11.9 Active 388259309 Problem Osteoporosis, unspecified osteoporosis type, unspecified pathological fracture presence M81.0 Active 07870528 Problem Polypharmacy Z79.899 Active 455519762 Problem AARON (nonalcoholic steatohepatitis) K75.81 Active 494832949 Problem Bipolar 1 disorder F31.9 Active 287558724 ALLERGIES No Information ENCOUNTERS Encounter Location Date Diagnosis [facility] [address] [id number] [place] [address] Jan [facility] [place] [address] [id number] [place] [address] Jan Nausea and vomiting in adult R11.2 ; Fever in other diseases R50.81 and Diarrhea of presumed infectious origin R19.7 [place] [id number] [place] [address] Jan, [place] [id number] [place] [address] Jan, [facility] [place] [address] [id number] [place] [address] Jan [facility] [place] [address] [id number] [place] [address] 19 Jan Polyarthralgia M25.50 ; Acute pharyngitis due to other specified organisms J02.8 ; Other viral agents as the cause of diseases classified elsewhere B97.89 and Fever, unspecified fever cause R50.9 [place] [id number] [place] [address] 17 Jan, 2018 Type 2 diabetes mellitus without complications E11.9 [facility] [place] [address] [id number] [place] [address] Jan [facility] [address] [id number] [place] [address] 10 Jan Migraine with aura and without status migrainosus, not intractable G43.109 and Tendinitis of right forearm M77.9 [facility] [place] [address] [id number] [place] [address] Jan [facility] [address] [id number] [place] [address] Dec 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 ; Adverse effect of unspecified drugs, medicaments and biological substances, initial encounter T50.905A ; Myofascial pain syndrome M79.1 ; Non-intractable vomiting with nausea, unspecified vomiting type R11.2 ; Polypharmacy Z79.899 and BMI 40.0-44.9, adult Z68.41 [place] [address] [id number] [address] Dec, Conversion disorder F44.9 and BMI 40.0-44.9, adult Z68.41 [place] [address] [id number] [address] Dec, [facility] [address] [id number] [place] [address] Dec [place] [id number] [facility] [id number] [place] [address] Dec, [facility] [address] [id number] [place] [address] Dec Type 2 diabetes mellitus without complications E11.9 and BMI 40.0-44.9, adult Z68.41 [facility] [place] [address] [id number] [place] [address] Nov [facility] [address] [id number] [place] [address] Nov [facility] [address] [id number] [place] [address] Nov Migraine with aura and without status [...] extremity M54.16 and BMI 40.0-44.9, adult Z68.41 [facility] [address] [facility] [place] [id number] [place] [address] Nov, Other chronic pain G89.29 [facility] [place] [address] [id number] [place] [address] 09 Nov Moderate persistent asthma with exacerbation J45.41 ; Acute bronchitis due to other specified organisms J20.8 ; Tobacco use disorder F17.200 ; Benign essential hypertension I10 ; Hyperlipidemia, unspecified hyperlipidemia type E78.5 ; Fibromyalgia M79.7 ; Interstitial cystitis N30.10 ; Polypharmacy Z79.899 ; Other chronic pain G89.29 ; Non-seasonal allergic rhinitis, unspecified trigger J30.89 and BMI 40.0-44.9, adult Z68.41 [facility] [address] [id number], [place] [address] 05 Nov, 2017 Other chronic pain G89.29 ; Fibromyalgia M79.7 ; Bipolar 1 disorder F31.9 and BMI 40.0-44.9, adult Z68.41 [facility] [address] [id number], [place] [address] 21 Oct, 2017 Other chronic pain G89.29 [facility] [address] [id number], [place] [address] 15 Oct, 2017 Type 2 diabetes mellitus without complications E11.9 and Other chronic pain G89.29 [facility] [address] [id number], [place] [address] 14 Oct, 2017 Type 2 diabetes mellitus without complications E11.9 ; detention current use of insulin Z79.4 ; Obesity, [...] type E78.5 and BMI 40.0-44.9, adult Z68.41 [facility] [id number] [place] [address] Aug, [facility] [id number] [place] [address] Aug, [facility] [id number] [place] [address]- [address] September, [facility] [id number] [place] [address] September, [facility] [id number] [place] [address]95- 9069 Aug, [facility] [id number] [place] [address] Aug, [facility] [id number] [place] [address] Jul, [facility] [address] [address] Jul, [facility] [address] [address] Jun, [facility] [address] [address] Jun, [facility] [id number] [place] [address]- [address] Jun, [facility] [address]65100[place] [address] Jun, [facility] [id number] [place] [address]- [address]57 Jun, [facility] [address] [id number] [place] [address] Jun, [facility] [place] [facility] [address] [id number] [place] [address] May, [facility] [place] [facility] [address] [id number] [place] [address] May, [facility] [place] [facility] [address] [id number] [place] [address] May, [facility] [place] [facility] [address] [id number] [place] [address] May, [facility] [place] [facility] [address] [id number] [place] [address] May, [facility] [address] [id number] [place] [address] May, [facility] [place] [facility] [address] [id number] [place] [address] May, [facility] [address] [id number] [place] [address] 2019 May, [facility] [place] [facility] [address] [id number] [place] [address] Apr, [facility] [place] [facility] [address] [id number] [place] [address]- [address] Apr, [facility] [place] [facility] [address] [id number] [place] [address] 9[address] Apr, [facility] [place] [facility] [address] [id number] [place] [address]- 74[address] Apr, [facility] [place] [facility] [address] [id number] [place] [address] 0[address] Apr, [facility] [place] [facility] [address] [id number] [place] [address]- 7093 Mar, [facility] [place] [facility] [address] [id number] [place] [address]- [address] 27 Mar, 2013 [facility] [address] [id number] [place] [address]- 8827 Mar, [facility] [place] [facility] [address] [id number] [place] [address]- 1403 Mar, [facility] [place] [facility] [address] [id number] [place] [address]- 5009 Mar, [facility] [place] [facility] [address] [id number] [place] [address]- 4294 19 Mar, 2013 [facility] [place] [facility] [address] [id number] [place] [address]- 4326 Mar, [facility] [place] [facility] [address] [id number] [place] [address]- 1327 18 Mar, 2013 [facility] [place] [facility] [address] [id number] [place] [address]- 9276 Mar, [facility] [place] [facility] [address] [id number] [place] [address]- 9129 14 Mar, 2013 [facility] [place] [facility] [address] [id number] [place] [address]- 5328 Mar, [facility] [place] [facility] [address] [id number] [place] [address]- 6683 12 Mar, 2013 [facility] [place] [facility] [address] [id number] [place] [address]- 3687 07 Mar, 2013 [facility] [place] [facility] [address] [id number] [place] [address]- 7794 07 Mar, 2013 [facility] [place] [facility] [address] [id number] [place] [address]- 8656 06 Mar, 2013 [facility] [place] [facility] [address] [id number] [place] [address]- 1679 06 Mar, 2013 [facility] [place] [facility] [address] [id number] [place] [address]- 1399 Mar, [facility] [place] [facility] [address] [id number] [place] [address]- 9115 Mar, [facility] [place] [facility] [address] [id number] [place] [address]- 7519 Feb, [facility] [place] [facility] [address] [id number] [place] [address]- 2233 Feb, [facility] [place] [facility] [address] [id number] [place] [address]- 6159 Feb, [facility] [place] [facility] [address] [id number] [place] [address]- 4835 Feb, [facility] [place] [facility] [address] [id number] [place] [address]- 9576 Feb, [facility] [place] [facility] [address] [id number] [place] [address]- 4747 Feb, [facility] [place] [facility] [address] [id number] [address]- 75[address] Feb, [facility] [place] [facility] [address] [id number] [place] [address]- 3296 Feb, [facility] [place] [facility] [address] [id number] [place] [address]- 9200 Feb, [facility] [place] [facility] [address] [id number] [place] [address]- [address] 15 Feb, 2013 [facility] [place] [facility] [address] [id number] [place] [address]- [address]678 15 Feb, 2013 [facility] [place] [facility] [address] [id number] [place] [address]- [address] 14 Feb, 2013 [facility] [place] [facility] [address] [id number] [address]- [address] 26 Jan, 2013 [facility] [place] [facility] [address] [id number] [place] [address]- 4467 25 Jan, 2013 [facility] [place] [facility] [address] [facility] [id number] [place] [address]- [address] 24 Jan, 2013 [facility] [address] [facility] [id number] [place] [address]- 9686 Jan, [facility] [address] [facility] [id number] [place] [address]- 0219 Jan, [facility] [address] [facility] [id number] [place] [address] Jan, [facility] [address] [facility] [id number] [place] [address] Jan, IMMUNIZATIONS No Known Immunizations SOCIAL HISTORY Never Assessed REASON FOR VISIT DM ED PLAN OF CARE VITAL SIGNS MEDICATIONS Unknown [...]
--- OUTSIDE RECORDS SUMMARY | 2018-05-10 07:36 | XMS REPORT ---
Author Author JOSE L TOBIAS Organization [facility] Address [address] [place] [address] Care Team Providers Care [employer] Specialist Name Role Phone MICHELINE JOSE L Unavailable PROBLEMS Type Condition ICD9-CM Code GIB66-DK Code Onset Dates Condition Status SNOMED Code Problem Lumbar back pain with radiculopathy affecting right lower extremity M54.16 Active 891534173 Problem Lumbar back pain with radiculopathy affecting left lower extremity M54.16 Active 939172563 Problem Non-seasonal allergic rhinitis, unspecified trigger J30.89 Active 83199099 Problem Moderate persistent asthma without complication J45.40 Active 348531031 Problem Body mass index (BMI) of 40.0-44.9 in adult Z68.41 Active 007421682 Problem Tobacco use disorder F17.200 Active 414143659 Problem Morbid (severe) obesity due to excess calories E66.01 Active 17802573027964 Problem Benign essential hypertension I10 Active 5478752 Problem Osteogenesis imperfecta Q78.0 Active 89954822 Problem Cervical spinal stenosis M48.02 Active 57258794 Problem Migraine with aura and without status migrainosus, not intractable G43.109 Active 5113519 Problem Sinus tachycardia R00.0 Active 18714853 Problem Myofascial pain syndrome M79.1 Active 060550467 Problem Conversion disorder F44.9 Active 16480862 Problem Cervicalgia M54.2 Active 44292631 Problem Lumbago with sciatica, left side M54.42 Active 564685553 Problem Fibromyalgia M79.7 Active 323686287 Problem Mixed hyperlipidemia E78.2 Active 228760973 Problem Hypertriglyceridemia E78.1 Active 181964947 Problem Leukocytosis, unspecified type D72.829 Active 352724894 Problem Lichen sclerosus L90.0 Active 49990604 Problem 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 Active 669873303 Problem Interstitial cystitis N30.10 Active 094878695 Problem Other chronic pain G89.29 Active 54876144 Problem Type 2 diabetes mellitus without complications E11.9 Active 211280291 Problem Osteoporosis, unspecified osteoporosis type, unspecified pathological fracture presence M81.0 Active 10940636 Problem Polypharmacy Z79.899 Active 224072003 Problem AARON (nonalcoholic steatohepatitis) K75.81 Active 113958264 Problem Bipolar 1 disorder F31.9 Active 087232893 ALLERGIES No Information ENCOUNTERS Encounter Location Date Diagnosis [facility] [address] [address] [id number] [place] [address] Jan Polyarthralgia M25.50 ; Acute pharyngitis due to other specified organisms J02.8 ; Other viral agents as the cause of diseases classified elsewhere B97.89 and Fever, unspecified fever cause R50.9 [facility] [id number] [place] [address] 17 Jan, 2018 Type 2 diabetes mellitus without complications E11.9 [facility] [address] [id number] [place] [address] [facility] [address] [id number] [place] [address] Jan Migraine with aura and without status migrainosus, not intractable G43.109 and Tendinitis of right forearm M77.9 [facility] [address] [address] [id number] [place] [address] Jan [facility] [address] [address] [id number] [place] [address] Dec 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 ; Adverse effect of unspecified drugs, medicaments and biological substances, initial encounter T50.905A ; Myofascial pain syndrome M79.1 ; Non-intractable vomiting with nausea, unspecified vomiting type R11.2 ; Polypharmacy Z79.899 and BMI 40.0-44.9, adult Z68.41 [facility] [id number] [place] [address] Dec, Conversion disorder F44.9 [place] [id number] [id number] Dec, [facility] [address] [id number] [place] [address] Dec [place] [address] [facility] [id number] [place] [address] Dec, [facility] [address] [id number] [place] [address] Dec Type 2 diabetes mellitus without complications E11.9 and BMI 40.0-44.9, adult Z68.41 [facility] [address] [id number] [place] [address] Nov [facility] [address] [id number] [place] [address] Nov [facility] [address] [id number] [place] [address] Nov Migraine with aura and without status [...] extremity M54.16 and BMI 40.0-44.9, adult Z68.[address] [id number] [place] [address] Nov, Other chronic pain G89.29 [facility] [address] [id number] [place] [address] Nov Moderate persistent asthma with exacerbation J45.41 ; Acute bronchitis due to other specified organisms J20.8 ; Tobacco use disorder F17.200 ; Benign essential hypertension I10 ; Hyperlipidemia, unspecified hyperlipidemia type E78.5 ; Fibromyalgia M79.7 ; Interstitial cystitis N30.10 ; Polypharmacy Z79.899 ; Other chronic pain G89.29 ; Non-seasonal allergic rhinitis, unspecified trigger J30.89 and BMI 40.0-44.9, adult Z68.41 [facility] [address] [id number] [address] 05 Nov, 2017 Other chronic pain G89.29 ; Fibromyalgia M79.7 ; Bipolar 1 disorder F31.9 and BMI 40.0-44.9, adult Z68.41 [facility] [id number] [address] 21 Oct, 2017 Other chronic pain G89.29 [facility] [address] [place] [id number] [address] 15 Oct, 2017 Type 2 diabetes mellitus without complications E11.9 and Other chronic pain G89.29 [facility] [id number] [address] 14 Oct, 2017 Type 2 diabetes mellitus [...] type E78.5 and BMI 40.0-44.9, adult Z68.41 [place] [address] [address] Aug, [facility] [address] [place] [id number] [place] [address] Aug, [facility] [address] [place] [id number] [place] [address] September, [place] [address] [facility] [id number] [place] [address] September, [facility] [place] [facility] [address] [id number] [place] [address] Aug, [facility] [place] [facility] [address] [id number] [place] [address] Aug, [facility] [place] [facility] [address] [id number] [place] [address] Jul, [facility] [place] [facility] [address] [id number] [place] [address] Jul, [facility] [place] [facility] [address] [id number] [place] [address] Jun, [facility] [place] [facility] [address] [id number] [place] [address] Jun, [facility] [place] [facility] [address] [id number] [place] [address] Jun, [facility] [place] [facility] [address] [id number] [place] [address] Jun, [facility] [place] [facility] [address] [id number] [place] [address] Jun, [facility] [place] [facility] [address] [id number] [place] [address] Jun, [facility] [place] [facility] [address] [id number] [place] [address] May, [facility] [place] [facility] [address] [id number] [place] [address] May, [facility] [place] [facility] [address] [id number] [place] [address] May, [facility] [place] [facility] [address] [id number] [place] [address] May, [facility] [place] [facility] [address] [id number] [place] [address] May, [facility] [place] [facility] [address] [id number] [place] [address] May, [facility] [place] [facility] [address] [id number] [place] [address] May, [facility] [place] [facility] [address] [id number] [place] [address] May, [facility] [place] [facility] [address] [id number] [place] [address] Apr, [facility] [place] [facility] [address] [id number] [place] [address] Apr, [facility] [place] [facility] [address] [id number] [place] [address] Apr, [facility] [place] [facility] [address] [id number] [place] [address] Apr, [facility] [place] [facility] [address] [id number] [place] [address] Apr, [facility] [place] [facility] [address] [id number] [place] [address] Mar, [facility] [place] [facility] [address] [id number] [place] [address] Mar, [facility] [place] [facility] [address] [id number] [place] [address] Mar, [facility] [place] [facility] [address] [id number] [place] [address] Mar, [facility] [place] [facility] [address] [id number] [place] [address]- [address] Mar, [facility] [place] [facility] [address] [id number] [place] [address]- [address] Mar, [facility] [place] [facility] [address] [id number] [place] [address]- [address] Mar, [facility] [place] [facility] [address] [id number] [place] [address]- [address] 18 Mar, 2013 [facility] [address] [id number] [place] [address]- [address] 14 Mar, 2013 [facility] [place] [facility] [address] [id number] [place] [address]- [address] 14 Mar, 2013 [facility] [address] [id number] [place] [address]- [address] 12 Mar, 2013 [facility] [place] [facility] [address] [id number] [place] [address]- [address] 12 Mar, 2013 [facility] [place] [facility] [address] [id number] [place] [address]- [address] 07 Mar, 2013 [facility] [place] [facility] [address] [id number] [place] [address]- [address] 07 Mar, 2013 [facility] [place] [facility] [address] [id number] [place] [address]- [address] Mar, [facility] [address] [id number] [place] [address]- [address] 06 Mar, 2013 [facility] [place] [facility] [address] [id number] [place] [address]- [address] Mar, [facility] [address] [id number] [place] [address]- [address] Mar, [facility] [place] [facility] [address] [id number] [place] [address]- [address] Feb, [facility] [place] [facility] [address] [id number] [place] [address]- 47[address] Feb, [facility] [place] [facility] [address] [id number] [place] [address] Feb, [facility] [place] [facility] [address] [id number] [place] [address]- [address] Feb, [facility] [place] [facility] [address] [id number] [place] [address]- [address] Feb, [facility] [address] [facility] [id number] [address] Feb, [facility] [address] [facility] [id number], [place] [address]- [address] Feb, [facility] [address] [facility] [id number] [address] Feb, [facility] [address] [facility] [id number], [place] [address] Feb, [facility] [address] [facility] [id number][place] [address]- [address] Feb, [facility] [address] [facility] [id number] [address] Feb, [facility] [address] [address]- [address] Feb, [facility] [address]65[address] [address] Jan, [facility] [address]65[address] [address] Jan, [facility] [address] [address]- [address] Jan, [facility] [address] [address] Jan, [facility] [address] [place] [id number] [address] Jan, [facility] [address] [place] [id number] [address] Jan, [facility] [address] [address] Jan, IMMUNIZATIONS No Known Immunizations SOCIAL HISTORY Never Assessed REASON FOR VISIT med question PLAN OF CARE VITAL SIGNS MEDICATIONS No [...] age 23 Medical History Palpitations Medical History Colonoscopy Dr. Ford 01/12/2016: polyps [...] Medical History MRI brain w/ & w/o contrast 11/18/2017: Normal Medical History twisted rib-seeing Medical History AARON Fibrosure 12/23/17: AARON Score 0.50 (High) N1 probable AARON; Steatosis score 0.97 (High) S3 marked or severe steatosis; Fibrosis Score 0.16 (Normal) F0 No Fibrosis Surgical History Tonsillectomy Surgical History Exploratory laparoscopy [...] 11/05/2016 Hospitalization History Operative procedures Hospitalization History [facility] massive seizure 12/2017
--- OUTSIDE RECORDS SUMMARY | 2018-05-10 07:36 | XMS REPORT ---
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 Name Role Phone JOSE DOBBS Unavailable PROBLEMS Type Condition ICD9-CM Code ZBT15-VE Code Onset Dates Condition Status SNOMED Code Problem Lumbar back pain with radiculopathy affecting right lower extremity M54.16 Active 520620178 Problem Lumbar back pain with radiculopathy affecting left lower extremity M54.16 Active 719027143 Problem Non-seasonal allergic rhinitis, unspecified trigger J30.89 Active 97714646 Problem Moderate persistent asthma without complication J45.40 Active 633138599 Problem Body mass index (BMI) of 40.0-44.9 in adult Z68.41 Active 133011859 Problem Tobacco use disorder F17.200 Active 798620830 Problem Morbid (severe) obesity due to excess calories E66.01 Active 22786236524283 Problem Benign essential hypertension I10 Active 6998559 Problem Osteogenesis imperfecta Q78.0 Active 79261007 Problem Cervical spinal stenosis M48.02 Active 34560983 Problem Migraine with aura and without status migrainosus, not intractable G43.109 Active 3608659 Problem Sinus tachycardia R00.0 Active 90926090 Problem Myofascial pain syndrome M79.1 Active 265245972 Problem Conversion disorder F44.9 Active 75412399 Problem Cervicalgia M54.2 Active 81250543 Problem Lumbago with sciatica, left side M54.42 Active 440542601 Problem Fibromyalgia M79.7 Active 275940788 Problem Mixed hyperlipidemia E78.2 Active 649377244 Problem Hypertriglyceridemia E78.1 Active 049644231 Problem Leukocytosis, unspecified type D72.829 Active 037204148 Problem Lichen sclerosus L90.0 Active 37140928 Problem 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 Active 646682882 Problem Interstitial cystitis N30.10 Active 945821347 Problem Other chronic pain G89.29 Active 09175256 Problem Type 2 diabetes mellitus without complications E11.9 Active 861884783 Problem Osteoporosis, unspecified osteoporosis type, unspecified pathological fracture presence M81.0 Active 51980035 Problem Polypharmacy Z79.899 Active 511809765 Problem AARON (nonalcoholic steatohepatitis) K75.81 Active 553659018 Problem Bipolar 1 disorder F31.9 Active 527763547 ALLERGIES Substance Reaction Event Type Date Status Vicodin nausea and vomiting Drug Allergy Dec, Active Lyrica Unknown Drug Allergy Dec, Active Januvia pancreatitis Drug Allergy Dec, Active Bactrim rash Drug Allergy Dec, Active Aspirin abdominal pain Drug Allergy Dec, Active Tramadol Unknown Drug Allergy Dec, Active Methadone Unknown Drug Allergy Dec, Active ENCOUNTERS Encounter Location Date Diagnosis [facility] [place] [address] [id number] [place] [address] Jan Nausea and vomiting in adult R11.2 ; Fever in other diseases R50.81 and Diarrhea of presumed infectious origin R19.7 [facility] [address] [id number] [address] Jan, [facility] [address] [id number], [place] [address] Jan, [facility] [place] [address] [id number] [place] [address] Jan [facility] [place] [address] [id number] [place] [address] Jan Polyarthralgia M25.50 ; Acute pharyngitis due to other specified organisms J02.8 ; Other viral agents as the cause of diseases classified elsewhere B97.89 and Fever, unspecified fever cause R50.9 [facility] [address] [id number], [place] [address] 17 Jan, 2018 Type 2 diabetes mellitus without complications E11.9 [facility] [address] [id number] [place] [address] Jan [facility] [address] [id number] [place] [address] Jan Migraine with aura and without status migrainosus, not intractable G43.109 and Tendinitis of right forearm M77.9 [facility] [place] [address] [id number] [place] [address] Jan [facility] [address] [id number] [place] [address] Dec 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 ; Adverse effect of unspecified drugs, medicaments and biological substances, initial encounter T50.905A ; Myofascial pain syndrome M79.1 ; Non-intractable vomiting with nausea, unspecified vomiting type R11.2 ; Polypharmacy Z79.899 and BMI 40.0-44.9, adult Z68.41 [address], [place] [address] Dec, Conversion disorder F44.9 and BMI 40.0-44.9, adult Z68.41 [address], [place] [address] Dec, [facility] [address] [id number] [place] [address] Dec [address], [place] [address] Dec, [facility] [address] [id number] [place] [address] Dec Type 2 diabetes mellitus without complications E11.9 and BMI 40.0-44.9, adult Z68.41 [facility] [address] [id number] [place] [address] Nov [facility] [address] [id number] [place] [address] Nov [facility] [place] [address] [id number] [place] [address] Nov Migraine with aura and without status [...] extremity M54.16 and BMI 40.0-44.9, adult Z68.41 [facility] [address] [facility] [id number] [place] [address] Nov, Other chronic pain G89.29 [address] [address] MIGDALIA GAMA [id number] [place] [address] Nov Moderate persistent asthma with exacerbation J45.41 ; Acute bronchitis due to other specified organisms J20.8 ; Tobacco use disorder F17.200 ; Benign essential hypertension I10 ; Hyperlipidemia, unspecified hyperlipidemia type E78.5 ; Fibromyalgia M79.7 ; Interstitial cystitis N30.10 ; Polypharmacy Z79.899 ; Other chronic pain G89.29 ; Non-seasonal allergic rhinitis, unspecified trigger J30.89 and BMI 40.0-44.9, adult Z68.41 [facility] [address] [id number] [address] Nov, Other chronic pain G89.29 ; Fibromyalgia M79.7 ; Bipolar 1 disorder F31.9 and BMI 40.0-44.9, adult Z68.41 [facility] [address] [id number] [address] Oct, Other chronic pain G89.29 [facility] [address] [id number] [address] 15 Oct, 2017 Type 2 diabetes mellitus without complications E11.9 and Other chronic pain G89.29 [facility] [address] [id number] [address] 14 Oct, 2017 Type 2 diabetes mellitus without complications E11.9 ; senior living current use of insulin Z79.4 ; Obesity, [...] type E78.5 and BMI 40.0-44.9, adult Z68.41 [facility] [id number] [place] [address] Aug, [facility] [id number] [place] [address] Aug, [facility] [id number] [place] [address] September, [facility] [id number] [place] [address] September, [facility] [id number] [place] [address] Aug, [facility] [id number] [place] [address] Aug, [facility] [id number] [place] [address] Jul, [facility] [id number] [place] [address] Jul, [facility] [id number] [place] [address] Jun, [facility] [id number] [place] [address] Jun, [facility] [id number] [place] [address] Jun, [facility] [place] [facility] [address] [id number] [place] [address] Jun, [facility] [place] [facility] [address] [id number] [place] [address] Jun, [facility] [place] [facility] [address] [id number] [place] [address] Jun, [facility] [place] [facility] [address] [id number] [place] [address] May, [facility] [place] [facility] [address] [id number] [place] [address] May, [facility] [place] [facility] [address] [id number] [place] [address] May, [facility] [place] [facility] [address] [id number] [place] [address] May, [facility] [place] [facility] [address] [id number] [place] [address] May, [facility] [place] [facility] [address] [id number] [place] [address] May, [facility] [place] [facility] [address] [id number] [place] [address] May, [facility] [place] [facility] [address] [id number] [place] [address] May, [facility] [place] [facility] [address] [id number] [place] [address] Apr, [facility] [place] [facility] [address] [id number] [place] [address] Apr, [facility] [place] [facility] [address] [id number] [place] [address] Apr, [facility] [place] [facility] [address] [id number] [place] [address] Apr, [facility] [place] [facility] [address] [id number], [place] [address] Apr, [facility] [place] [facility] [address] [id number] [place] [address] Mar, [facility] [place] [facility] [address] [id number] [place] [address] Mar, [facility] [place] [facility] [address] [id number] [place] [address] Mar, [facility] [place] [facility] [address] [id number], [place] [address] Mar, [facility] [place] [facility] [address] [id number] [place] [address] Mar, [facility] [place] [facility] [address] [id number], [place] [address] Mar, [facility] [place] [facility] [address] [id number], [place] [address] Mar, [facility] [place] [facility] [address] [id number], [place] [address] 18 Mar, 2013 [facility] [place] [facility] [address] [id number], [place] [address] Mar, [facility] [place] [facility] [address] [id number], [place] [address] 14 Mar, 2013 [facility] [place] [facility] [address] [id number], [place] [address] Mar, [facility] [place] [facility] [address] [id number], [place] [address] 12 Mar, 2013 [facility] [place] [facility] [address] [id number], [place] [address] 07 Mar, 2013 [facility] [place] [facility] [address] [id number], [place] [address] 07 Mar, 2013 [facility] [place] [facility] [address] [id number], [place] [address] 06 Mar, 2013 [facility] [place] [facility] [address] [id number] [place] [address] Mar, [facility] [address] [id number] [place] [address] Mar, [facility] [place] [facility] [address] [id number] [place] [address] Mar, [facility] [address] [id number] [place] [address] Feb, [facility] [place] [facility] [address] [id number] [place] [address] 14[address] Feb, [facility] [address] [id number] [place] [address] Feb, [facility] [place] [facility] [address] [id number] [place] [address] Feb, [facility] [place] [facility] [address] [id number] [place] [address] Feb, [facility] [address] [id number] [place] [address] Feb, [facility] [place] [facility] [address] [id number] [place] [address] Feb, [facility] [address] [id number] [place] [address] Feb, [facility] [place] [facility] [address] [id number] [place] [address] Feb, [facility] [place] [facility] [address] [id number] [place] [address] 15 Feb, 2013 [facility] [place] [facility] [address] [id number] [place] [address] 15 Feb, 2013 [facility] [place] [facility] [address] [id number] [place] [address] 14 Feb, 2013 [facility] [place] [facility] [address] [id number] [place] [address] Jan, [facility] [address] [facility] [id number], [place] [address] Jan, [facility] [id number], [place] [address] Jan, [facility] [id number], [place] [address] Jan, [facility] [address], [place] [address] Jan, [facility] [id number], [place] [address] Jan, [facility] [address], [place] [address] Jan, IMMUNIZATIONS Vaccine Route Administration Date Status TORADOL (IM) 30 MG/ML (UP TO 15 MG) IM Intramuscular Jan 23, 2018 Administered PHENERGAN (IM) 25 MG (25 MG/ML) IM Intramuscular Jan 23, 2018 Administered SOCIAL HISTORY Never Assessed REASON FOR VISIT Hospital f/u-Patient was sent to for seizure and they did spinal tap, she was then sent to Med and treated for meningitis. is requesting that she start 14 day IV abx. Shashi RN, Patient requesting injection for her tension headache. Shashi RN, SEBASTIEN sent to for records. Shashi RN PLAN OF CARE Activity Details Follow Up prn Reason: VITAL SIGNS Height 53.5 in 2018-01-23 Weight 169.8 lbs 2018-01-23 Temperature 97.8 degrees Fahrenheit 2018-01-23 Heart Rate 85 bpm 2018-01-23 Respiratory Rate 18 2018-01-23 Oximetry 98 % 2018-01-23 BMI 41.70 kg/m2 2018-01-23 Blood pressure systolic 120 mmHg 2018-01-23 Blood pressure diastolic 80 mmHg 2018-01-23 MEDICATIONS Medication Instructions Dosage Frequency Start Date End Date Duration Status Anoro Ellipta 62.5-25 MCG/INH Inhalation Once a day 1 puff 24h Feb, Active NovoLog 100 UNIT/ML Subcutaneous At Meals 8 units, increasing 1 for every 50 Active Cetirizine HCl 10 MG Orally Once a day 1 tablet 24h Active Nortriptyline HCl 10 mg Orally Once a day 1 capsule 24h 30 days Active Flomax 0.4 MG Orally Once a day 1 capsule 24h Active Baclofen 10 MG Orally Three times a day 1 tablet with food or milk 8h Active Sumatriptan Succinate 100 mg Orally once 1 tablet at the start of a migraine ; may take another one two hours later if needed 1 dose Active Vitamin C & E Complex 6,000mg by oral route Once a day 1 tablet 24h Active Mobic 15 mg Orally Once a day 1 tablet 24h Nov, 30 day(s) Active Fenofibrate 145 MG Orally Once a day 1 tablet with food 24h 90 days Active Ventolin HFA 108 (90 Base) MCG/ACT Inhalation every 6 hrs 2 puffs as needed 6h Active Geodon 80 MG Orally Once a day 1 capsule with food 24h Active Lantus 100 UNIT/ML 54 units daily Active Myrbetriq 25 MG Orally Once a day 1 tablet 24h 30 days Active Metoprolol Succinate ER 100 MG Orally Once a day 1 tablet 24h 30 days Active Benadryl 25 MG Orally every 8 hrs 1 capsule as needed 8h Active Vitamin D-3 5000 UNIT Orally Once a day 1 tablet 24h Active Reclast 5 MG/100ML Intravenous Once per year as directed 1 dose Active Potassium Chloride ER 10 MEQ Orally Twice a day 1 tablet with food 12h Feb, 30 days Active Montelukast Sodium 10 mg Orally Once a day 1 tablet 24h 30 days Active Geodon 40 mg Orally Once a day 1 capsule with food 24h Active Fish Oil 1200 MG Orally Once a day 1 capsule 24h Active Cymbalta 30 MG Orally Once a day 1 capsule 24h Active Atorvastatin Calcium 80 MG Orally Once a day 1 tablet 24h 30 days Active Magnesium 200 MG Orally Once a day 2 tablets with a meal 24h Active Bumetanide 1 MG Orally Once a day 1 tablet 24h 30 days Active Flovent HFA 220 MCG/ACT Inhalation Twice a day 1 puff 12h 12 Feb, 2018 Active Voltaren 1 % Active RESULTS No Results PROCEDURES Procedure Date Ordered Result Body Site PHENERGAN (IM) 25 MG (25 MG/ML) Jan 23, 2018 THER/PROPH/DIAG INJ, SC/IM Jan 23, 2018 [facility] VISIT ESTABLISHED PATIENT Jan 23, 2018 TORADOL (IM) 30 MG/ML (UP TO 15 MG) Jan 23, 2018 INSTRUCTIONS MEDICATIONS ADMINISTERED No [...] procedures Hospitalization History Aseptic meningitis at [facility] 01/13/18 to 01/20/18
--- OUTSIDE RECORDS SUMMARY | 2018-05-10 07:36 | XMS REPORT ---
Author Author EDVINJOSE SERRANO [facility] Address [address] [place] [address] Care Team Providers Care Supervisor Transcribing Operators Name Role Phone JOSE DOBBS Unavailable PROBLEMS Type Condition ICD9-CM Code NMV50-UM Code Onset Dates Condition Status SNOMED Code Problem Lumbar back pain with radiculopathy affecting right lower extremity M54.16 Active 430586778 Problem Lumbar back pain with radiculopathy affecting left lower extremity M54.16 Active 401374855 Problem Non-seasonal allergic rhinitis, unspecified trigger J30.89 Active 17673079 Problem Moderate persistent asthma without complication J45.40 Active 127307715 Problem Body mass index (BMI) of 40.0-44.9 in adult Z68.41 Active 351922531 Problem Tobacco use disorder F17.200 Active 347317660 Problem Morbid (severe) obesity due to excess calories E66.01 Active 85877807991749 Problem Benign essential hypertension I10 Active 5732855 Problem Osteogenesis imperfecta Q78.0 Active 75140564 Problem Cervical spinal stenosis M48.02 Active 81776320 Problem Migraine with aura and without status migrainosus, not intractable G43.109 Active 4183364 Problem Sinus tachycardia R00.0 Active 76115809 Problem Myofascial pain syndrome M79.1 Active 020532189 Problem Conversion disorder F44.9 Active 69330810 Problem Cervicalgia M54.2 Active 66524320 Problem Lumbago with sciatica, left side M54.42 Active 919735842 Problem Fibromyalgia M79.7 Active 816167176 Problem Mixed hyperlipidemia E78.2 Active 977109971 Problem Hypertriglyceridemia E78.1 Active 299272848 Problem Leukocytosis, unspecified type D72.829 Active 417316493 Problem Lichen sclerosus L90.0 Active 51097068 Problem 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 Active 579476672 Problem Interstitial cystitis N30.10 Active 187129676 Problem Other chronic pain G89.29 Active 26876855 Problem Type 2 diabetes mellitus without complications E11.9 Active 816729359 Problem Osteoporosis, unspecified osteoporosis type, unspecified pathological fracture presence M81.0 Active 56806489 Problem Polypharmacy Z79.899 Active 495504080 Problem AARON (nonalcoholic steatohepatitis) K75.81 Active 518036718 Problem Bipolar 1 disorder F31.9 Active 718147434 ALLERGIES No Information ENCOUNTERS Encounter Location Date Diagnosis [facility] [employer] [address] [id number] [place] [address] Jan Polyarthralgia M25.50 ; Fever, unspecified fever cause R50.9 ; Other viral agents as the cause of diseases classified elsewhere B97.89 and Acute pharyngitis due to other specified organisms J02.8 [facility] [id number] [place] [address] 17 Jan, 2018 Type 2 diabetes mellitus without complications E11.9 [facility] [address] [id number] [place] [address] Jan [facility] [employer] [address] [id number] [place] [address] Jan Migraine with aura and without status migrainosus, not intractable G43.109 and Tendinitis of right forearm M77.9 [facility] [employer] [address] [id number] [place] [address] Jan [facility] [employer] [address] [id number] [place] [address] Dec 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 ; Adverse effect of unspecified drugs, medicaments and biological substances, initial encounter T50.905A ; Myofascial pain syndrome M79.1 ; Non-intractable vomiting with nausea, unspecified vomiting type R11.2 ; Polypharmacy Z79.899 and BMI 40.0-44.9, adult Z68.41 [facility] [address] [place] [address] Dec, Conversion disorder F44.9 [place] [address] [place] [id number] [place] [id number] Dec, [facility] [address] [id number] [place] [address] Dec [place] [address] [facility] [id number] [place] [address] Dec, [facility] [address] [id number] [place] [address] Dec Type 2 diabetes mellitus without complications E11.9 and BMI 40.0-44.9, adult Z68.41 [facility] [address] [id number] [place] [address] Nov [facility] [address] [id number] [place] [address] Nov [facility] [address] [id number] [place] [address] Nov Migraine with aura and without status [...] extremity M54.16 and BMI 40.0-44.9, adult Z68.[address] [id number] [place] [address] Nov, Other chronic pain G89.29 [facility] [address] [id number] [place] [address] Nov Moderate persistent asthma with exacerbation J45.41 [...] [facility] [address] [id number] [address] 05 Nov, 2017 Other chronic pain G89.29 ; Fibromyalgia M79.7 ; Bipolar 1 disorder F31.9 and BMI 40.0-44.9, adult Z68.41 [facility] [id number], [place] [address] 21 Oct, 2017 Other chronic pain G89.29 [facility] [address] [place] [id number], [place] [address] 15 Oct, 2017 Type 2 diabetes mellitus without complications E11.9 and Other chronic pain G89.29 [facility] [id number], [place] [address] 14 Oct, 2017 Type 2 diabetes mellitus without complications E11.9 ; retirement current use of insulin Z79.4 ; Obesity, [...] type E78.5 and BMI 40.0-44.9, adult Z68.41 [place] [address] [address] Aug, [facility] [id number] [place] [address] Aug, [facility] [id number] [place] [address] September, [place] [address] [facility] [id number] [place] [address] September, [facility] [place] [facility] [address] [id number] [place] [address] Aug, [facility] [place] [facility] [address] [id number] [place] [address] Aug, [facility] [place] [facility] [address] [id number] [place] [address] Jul, [facility] [place] [facility] [address] [id number] [place] [address] Jul, [facility] [place] [facility] [address] [id number] [place] [address] Jun, [facility] [place] [facility] [address] [id number] [place] [address] Jun, [facility] [place] [facility] [address] [id number] [place] [address] Jun, [facility] [place] [facility] [address] [id number] [place] [address] Jun, [facility] [place] [facility] [address] [id number] [place] [address] Jun, [facility] [place] [facility] [address] [id number] [place] [address] Jun, [facility] [place] [facility] [address] [id number] [place] [address] May, [facility] [place] [facility] [address] [id number] [place] [address] May, [facility] [place] [facility] [address] [id number] [place] [address] May, [facility] [place] [facility] [address] [id number] [place] [address] May, [facility] [place] [facility] [address] [id number] [place] [address] May, [facility] [place] [facility] [address] [id number] [place] [address] May, [facility] [place] [facility] [address] [id number] [place] [address] May, [facility] [place] [facility] [address] [id number] [place] [address] May, [facility] [place] [facility] [address] [id number] [place] [address] Apr, [facility] [place] [facility] [address] [id number] [place] [address] Apr, [facility] [place] [facility] [address] [id number] [place] [address] Apr, [facility] [place] [facility] [address] [id number] [place] [address]- [address] Apr, [facility] [place] [facility] [address] [id number] [place] [address]- [address] Apr, [facility] [place] [facility] [address] [id number] [place] [address]- 34[address] Mar, [facility] [place] [facility] [address] [id number] [place] [address]- 2742 Mar, [facility] [place] [facility] [address] [id number] [place] [address] Mar, [facility] [place] [facility] [address] [id number] [place] [address]- 0682 Mar, [facility] [place] [facility] [address] [id number] [place] [address]- 96[address] Mar, [facility] [place] [facility] [address] [id number] [place] [address]- [address] Mar, [facility] [place] [facility] [address] [id number] [place] [address]- 5290 Mar, [facility] [place] [facility] [address] [id number] [place] [address]- 93[address] 18 Mar, 2013 [facility] [address] [id number] [place] [address]- [address] 14 Mar, 2013 [facility] [place] [facility] [address] [id number] [place] [address]- 5[address] 14 Mar, 2013 [facility] [address] [id number] [place] [address]- 6[address] 12 Mar, 2013 [facility] [place] [facility] [address] [id number] [place] [address]- 3[address] 12 Mar, 2013 [facility] [place] [facility] [address] [id number] [place] [address]- 2494 07 Mar, 2013 [facility] [place] [facility] [address] [id number] [place] [address]- 115[address] 07 Mar, 2013 [facility] [place] [facility] [address] [id number] [place] [address]- 1916 Mar, [facility] [address] [id number] [place] [address]- 3079 06 Mar, 2013 [facility] [place] [facility] [address] [id number] [place] [address]- 45[address] Mar, [facility] [address] [id number] [place] [address]- [address] Mar, [facility] [place] [facility] [address] [id number] [place] [address]- 8765 Feb, [facility] [place] [facility] [address] [id number] [place] [address]- 0231 Feb, [facility] [place] [facility] [address] [id number] [place] [address]- 7385 Feb, [facility] [place] [facility] [address] [id number] [place] [address]- 0555 Feb, [facility] [place] [facility] [address] [id number] [place] [address]- 407[address] Feb, [facility] [address] [id number] [address] Feb, [facility] [address] [id number] [place] [address]- [address] Feb, [facility] [address] [facility] [id number] [place] [address]- [address] Feb, [facility] [address] [id number] [place] [address]- [address] Feb, [facility] [address] [facility] [id number] [place] [address]- [address] Feb, [facility] [address] [facility] [id number] [place] [address]- 100[address] Feb, [facility] [address] [facility] [id number] [place] [address]- [address] Feb, [facility] [address] [facility] [id number] [place] [address]- [address] Jan, [facility] [address] [facility] [id number] [place] [address]- [address] Jan, [facility] [address] [facility] [id number] [place] [address]- [address] 24 Jan, 2013 [facility] [address] [facility] [id number] [place] [address]- [address] Jan, [facility] [address] [facility] [id number] [place] [address]- [address] 20 Jan, 2013 [facility] [address] [facility] [id number] [place] [address]- [address] 19 Jan, 2013 [facility] [address] [facility] [id number] [place] [address]- 87[address] 18 Jan, 2013 IMMUNIZATIONS No Known Immunizations SOCIAL HISTORY Never Assessed REASON FOR VISIT Diabetic education-Patient to clinic to check glucose machine. Her machine registered her blood sugar at 334 and ours registered at 367. Shashi DODSON PLAN OF CARE VITAL SIGNS MEDICATIONS No [...] History Cholecystectomy September 2012 Surgical History Laparoscopic Virgniia Fundoplication Surgical History Cystoscopy/Bilateral retrograde pyelogram July 2017 Surgical History Left L4-5 transforaminal epidural steroid injection Surgical History C6-7 interlaminar epidural steroid injection 11/05/2016 Hospitalization History Operative procedures Hospitalization History [facility] massive seizure 12/2017
--- OUTSIDE RECORDS SUMMARY | 2018-05-10 07:37 | XMS REPORT ---
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 [employer] Name Role Phone JOSE DOBBS Unavailable PROBLEMS Type Condition ICD9-CM Code HKN95-CM Code Onset Dates Condition Status SNOMED Code Problem Lumbar back pain with radiculopathy affecting right lower extremity M54.16 Active 060774044 Problem Lumbar back pain with radiculopathy affecting left lower extremity M54.16 Active 990613563 Problem Non-seasonal allergic rhinitis, unspecified trigger J30.89 Active 94902616 Problem Moderate persistent asthma without complication J45.40 Active 659139478 Problem Body mass index (BMI) of 40.0-44.9 in adult Z68.41 Active 568387585 Problem Tobacco use disorder F17.200 Active 170743403 Problem Morbid (severe) obesity due to excess calories E66.01 Active 61546523552092 Problem Benign essential hypertension I10 Active 1537696 Problem Osteogenesis imperfecta Q78.0 Active 45114850 Problem Cervical spinal stenosis M48.02 Active 07877081 Problem Migraine with aura and without status migrainosus, not intractable G43.109 Active 4871991 Problem Sinus tachycardia R00.0 Active 09705155 Problem Myofascial pain syndrome M79.1 Active 231583234 Problem Conversion disorder F44.9 Active 63976975 Problem Cervicalgia M54.2 Active 56114004 Problem Lumbago with sciatica, left side M54.42 Active 190950884 Problem Fibromyalgia M79.7 Active 880095724 Problem Mixed hyperlipidemia E78.2 Active 886158174 Problem Hypertriglyceridemia E78.1 Active 528475510 Problem Leukocytosis, unspecified type D72.829 Active 888497858 Problem Lichen sclerosus L90.0 Active 04359633 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 Active 374347759 Problem Interstitial cystitis N30.10 Active 738181198 Problem Other chronic pain G89.29 Active 55406021 Problem Type 2 diabetes mellitus without complications E11.9 Active 988593282 Problem Osteoporosis, unspecified osteoporosis type, unspecified pathological fracture presence M81.0 Active 06092479 Problem Polypharmacy Z79.899 Active 328346443 Problem AARON (nonalcoholic steatohepatitis) K75.81 Active 613974738 Problem Bipolar 1 disorder F31.9 Active 735530099 ALLERGIES No Information ENCOUNTERS Encounter Location Date Diagnosis [place] [address], [place] [address] 17 Jan, 2018 Type 2 diabetes mellitus without complications E11.9 [facility] [employer] [address] [id number] [place] [address] Jan [facility] [employer] [address] [id number] [place] [address] Jan Migraine with aura and without status migrainosus, not intractable G43.109 and Tendinitis of right forearm M77.9 [facility] [employer] [address] [id number] [place] [address] Jan [facility] [employer] [employer] [id number] [place] [address] Dec 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 ; Adverse effect of unspecified drugs, medicaments and biological substances, initial encounter T50.905A ; Myofascial pain syndrome M79.1 ; Non-intractable vomiting with nausea, unspecified vomiting type R11.2 ; Polypharmacy Z79.899 and BMI 40.0-44.9, adult Z68.41 [place] [address], [place] [address] Dec, Conversion disorder F44.9 [place] [address] [place] [id number] [place] [address] Dec, [facility] [address] [id number] [place] [address] Dec [place] [address] [place] [address] Dec, [facility] [place] [address] [id number] [place] [address] Dec Type 2 diabetes mellitus without complications E11.9 and BMI 40.0-44.9, adult Z68.41 [facility] [address] [id number] [place] [address] Nov [facility] [address] [id number] [place] [address] Nov [facility] [address] [id number] [place] [address] Nov Migraine with aura and without status [...] extremity M54.16 and BMI 40.0-44.9, adult Z68.41 [facility] [address] [facility] [id number] [place] [address] Nov, Other chronic pain G89.29 [facility] [address] [address] [id number] [place] [address] Nov Moderate persistent asthma with exacerbation J45.41 ; Acute bronchitis due to other specified organisms J20.8 ; Tobacco use disorder F17.200 ; Benign essential hypertension I10 ; Hyperlipidemia, unspecified hyperlipidemia type E78.5 ; Fibromyalgia M79.7 ; Interstitial cystitis N30.10 ; Polypharmacy Z79.899 ; Other chronic pain G89.29 ; Non-seasonal allergic rhinitis, unspecified trigger J30.89 and BMI 40.0-44.9, adult Z68.41 [facility] [address] [id number] [place] [address] Nov, Other chronic pain G89.29 ; Fibromyalgia M79.7 ; Bipolar 1 disorder F31.9 and BMI 40.0-44.9, adult Z68.41 [facility] [address] [id number] [place] [address] 21 Oct, 2017 Other chronic pain G89.29 [facility] [address] [id number], [place] [address] 15 Oct, 2017 Type 2 diabetes mellitus without complications E11.9 and Other chronic pain G89.29 [facility] [address] [id number], [place] [address] 14 Oct, 2017 Type 2 diabetes mellitus without complications E11.9 ; custodial current use of insulin Z79.4 ; Obesity, [...] type E78.5 and BMI 40.0-44.9, adult Z68.41 [facility] [address] [place] [id number] [place] [address] Aug, [facility] [address] [place] [id number] [place] [address] Aug, [facility] [address] [place] [id number] [place] [address] September, [facility] [address] [address] September, [facility] [address] [place] [id number] [place] [address] Aug, [facility] [address] [address] Aug, [facility] [place] [facility] [address] [id number] [place] [address] Jul, [facility] [place] [facility] [address] [id number] [place] [address] Jul, [facility] [place] [facility] [address] [id number] [place] [address] Jun, [facility] [place] [facility] [address] [id number] [place] [address] Jun, [facility] [place] [facility] [address] [id number] [place] [address] Jun, [facility] [place] [facility] [address] [id number] [place] [address] Jun, [facility] [place] [facility] [address] [id number] [place] [address] Jun, [facility] [place] [facility] [address] [id number] [place] [address] Jun, [facility] [place] [facility] [address] [id number] [place] [address] May, [facility] [place] [facility] [address] [id number] [place] [address] May, [facility] [place] [facility] [address] [id number] [place] [address] May, [facility] [place] [facility] [address] [id number] [place] [address] May, [facility] [place] [facility] [address] [id number] [place] [address] May, [facility] [place] [facility] [address] [id number] [place] [address] May, [facility] [place] [facility] [address] [id number] [place] [address] May, [facility] [place] [facility] [address] [id number] [place] [address] May, [facility] [place] [facility] [address] [id number] [place] [address] Apr, [facility] [place] [facility] [address] [id number] [place] [address] Apr, [facility] [place] [facility] [address] [id number] [place] [address] Apr, [facility] [place] [facility] [address] [id number] [place] [address] Apr, [facility] [place] [facility] [address] [id number] [place] [address] Apr, [facility] [place] [facility] [address] [id number] [place] [address] Mar, [facility] [place] [facility] [address] [id number] [place] [address] Mar, [facility] [place] [facility] [address] [id number] [place] [address] Mar, [facility] [place] [facility] [address] [id number] [place] [address] Mar, [facility] [place] [facility] [address] [id number] [place] [address] Mar, [facility] [place] [facility] [address] [id number] [place] [address] 19 Mar, 2013 [facility] [place] [facility] [address] [id number] [place] [address] 18 Mar, 2013 [facility] [place] [facility] [address] [id number] [place] [address] 18 Mar, 2013 [facility] [place] [facility] [address] [id number] [place] [address] 14 Mar, 2013 [facility] [place] [facility] [address] [id number] [place] [address] 14 Mar, 2013 [facility] [place] [facility] [address] [id number] [place] [address] Mar, [facility] [place] [facility] [address] [id number] [place] [address] Mar, [facility] [place] [facility] [address] [id number] [place] [address] Mar, [facility] [place] [facility] [address] [id number] [place] [address] 07 Mar, 2013 [facility] [place] [facility] [address] [id number] [place] [address]- [address] Mar, [facility] [place] [facility] [address] [id number] [place] [address]- [address] Mar, [facility] [place] [facility] [address] [id number] [place] [address]- [address] Mar, [facility] [place] [facility] [address] [id number], [place] [address] Mar, [facility] [place] [facility] [address] [id number] [place] [address]- [address] Feb, [facility] [place] [facility] [address] [id number] [place] [address]- [address] Feb, [facility] [place] [facility] [address] [id number], [place] [address] Feb, [facility] [place] [facility] [address] [id number], [place] [address]- [address] Feb, [facility] [place] [facility] [address] [id number] [place] [address]- [address] Feb, [facility] [place] [facility] [address] [id number], [place] [address]- [address] Feb, [facility] [place] [facility] [address] [id number], [place] [address]- [address] Feb, [facility] [place] [facility] [address], [place] [address] Feb, [facility] [address], [place] [address] Feb, [facility] [address], [place] [address] Feb, [facility] [address], [place] [address] Feb, [facility] [address], [place] [address] Feb, [facility] [id number] [place] [address] Jan, [facility] [address] [place] [address] Jan, [facility] [address] [place] [id number] [place] [address] 24 Jan, 2013 [facility] [address], [place] [address] 23 Jan, 2013 [facility] [address], [place] [address] 20 Jan, 2013 [facility] [address], [place] [address] 19 Jan, 2013 [facility] [address], [place] [address] Jan, IMMUNIZATIONS No Known Immunizations SOCIAL HISTORY Never Assessed REASON FOR VISIT Pt requesting referrals PLAN OF CARE VITAL SIGNS MEDICATIONS Unknown [...]
--- OUTSIDE RECORDS SUMMARY | 2018-05-10 07:37 | XMS REPORT ---
Author Author JOSE L TOBIAS Organization [facility] Address [address] [place] [address] Care Team Providers Care Buttonholer Name Role Phone MICHELINEDMITRIYIE Unavailable PROBLEMS Type Condition ICD9-CM Code MDM68-[id number] Code Onset Dates Condition Status SNOMED Code Problem Lumbar back pain with radiculopathy affecting right lower extremity M54.16 Active 240178039 Problem Lumbar back pain with radiculopathy affecting left lower extremity M54.16 Active 839115801 Problem Non-seasonal allergic rhinitis, unspecified trigger J30.89 Active 32709272 Problem Moderate persistent asthma without complication J45.40 Active 993417969 Problem Body mass index (BMI) of 40.0-44.9 in adult Z68.41 Active 596516877 Problem Tobacco use disorder F17.200 Active 614059915 Problem Morbid (severe) obesity due to excess calories E66.01 Active 88600943136637 Problem Benign essential hypertension I10 Active 5925955 Problem Osteogenesis imperfecta Q78.0 Active 32357532 Problem Cervical spinal stenosis M48.02 Active 76416313 Problem Migraine with aura and without status migrainosus, not intractable G43.109 Active 9726920 Problem Sinus tachycardia R00.0 Active 68131477 Problem Myofascial pain syndrome M79.1 Active 847171500 Problem Conversion disorder F44.9 Active 56074363 Problem Cervicalgia M54.2 Active 35385530 Problem Lumbago with sciatica, left side M54.42 Active 025775881 Problem Fibromyalgia M79.7 Active 403986616 Problem Mixed hyperlipidemia E78.2 Active 796497203 Problem Hypertriglyceridemia E78.1 Active 429380811 Problem Leukocytosis, unspecified type D72.829 Active 702076962 Problem Lichen sclerosus L90.0 Active 12048073 Problem 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 Active 305579535 Problem Interstitial cystitis N30.10 Active 523105487 Problem Other chronic pain G89.29 Active 30612996 Problem Type 2 diabetes mellitus without complications E11.9 Active 967946801 Problem Osteoporosis, unspecified osteoporosis type, unspecified pathological fracture presence M81.0 Active 18173637 Problem Polypharmacy Z79.899 Active 866933046 Problem AARON (nonalcoholic steatohepatitis) K75.81 Active 243984987 Problem Bipolar 1 disorder F31.9 Active 767216823 ALLERGIES Substance Reaction Event Type Date Status Vicodin nausea and vomiting Drug Allergy Nov, Active Lyrica Unknown Drug Allergy Nov, Active Bactrim rash Drug Allergy Nov, Active Aspirin belly pain Drug Allergy Nov, Active Tramadol Unknown Drug Allergy Nov, Active Methadone Unknown Drug Allergy Nov, Active ENCOUNTERS Encounter Location Date [facility] [id number] [place] [address] Jan [facility] [address] [id number] [place] [address] Jan Migraine with aura and without status migrainosus, not intractable G43.109 and Tendinitis of right forearm M77.9 [facility] [address] [id number] [place] [address] Jan [facility] [address] [id number] [place] [address] Dec 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 ; Adverse effect of unspecified drugs, medicaments and biological substances, initial encounter T50.905A ; Myofascial pain syndrome M79.1 ; Non-intractable vomiting with nausea, unspecified vomiting type R11.2 ; Polypharmacy Z79.899 and BMI 40.0-44.9, adult Z68.41 [facility] [address] [id number], [place] [address] Dec, Conversion disorder F44.9 [facility] [address] [id number], [place] [address] Dec, [facility] [address] [id number] [place] [address] Dec [facility] [address] [facility] [id number] [place] [address] Dec, [facility] [address] [id number] [place] [address] Dec Type 2 diabetes mellitus without complications E11.9 and BMI 40.0-44.9, adult Z68.41 [facility] [address] [id number] [place] [address] Nov [facility] [address] [id number] [place] [address] Nov [facility] [address] [id number] [place] [address] Nov Migraine with aura and without status [...] extremity M54.16 and BMI 40.0-44.9, adult Z68.41 [facility] [address] [id number], [place] [address] Nov, Other chronic pain G89.29 [facility] [id number] [place] [address] Nov Moderate persistent asthma with exacerbation J45.41 ; Acute bronchitis due to other specified organisms J20.8 ; Tobacco use disorder F17.200 ; Benign essential hypertension I10 ; Hyperlipidemia, unspecified hyperlipidemia type E78.5 ; Fibromyalgia M79.7 ; Interstitial cystitis N30.10 ; Polypharmacy Z79.899 ; Other chronic pain G89.29 ; Non-seasonal allergic rhinitis, unspecified trigger J30.89 and BMI 40.0-44.9, adult Z68.41 [facility] [address] [id number] [address] Nov, Other chronic pain G89.29 ; Fibromyalgia M79.7 ; Bipolar 1 disorder F31.9 and BMI 40.0-44.9, adult Z68.41 [facility] [id number], [place] [address] 21 Oct, 2017 Other chronic pain G89.29 [facility] [id number], [place] [address] 15 Oct, 2017 Type 2 diabetes mellitus without complications E11.9 and Other chronic pain G89.29 [facility] [address] [id number] [address] 14 Oct, 2017 Type 2 diabetes mellitus [...] type E78.5 and BMI 40.0-44.9, adult Z68.41 [id number] [place] [address] Aug, [id number] [place] [address] Aug, [address] [id number] [place] [address] September, [facility] [id number] [place] [address] September, [address] [place] [id number] [place] [address] Aug, [facility] [place] [facility] [address] [id number] [place] [address] Aug, [facility] [place] [facility] [address] [id number] [place] [address] Jul, [facility] [place] [facility] [address] [id number] [place] [address] Jul, [facility] [place] [facility] [address] [id number] [place] [address] Jun, [facility] [place] [facility] [address] [id number] [place] [address] Jun, [facility] [place] [facility] [address] [id number] [place] [address] Jun, [facility] [place] [facility] [address] [id number] [place] [address] Jun, [facility] [place] [facility] [address] [id number] [place] [address] Jun, [facility] [place] [facility] [address] [id number] [place] [address] Jun, [facility] [place] [facility] [address] [id number] [place] [address] May, [facility] [place] [facility] [address] [id number] [place] [address] May, [facility] [place] [facility] [address] [id number] [place] [address] May, [facility] [place] [facility] [address] [id number] [place] [address] May, [facility] [place] [facility] [address] [id number] [place] [address] May, [facility] [place] [facility] [address] [id number] [place] [address] May, [facility] [place] [facility] [address] [id number] [place] [address] May, [facility] [address] [id number] [place] [address] May, [facility] [address] [id number] [place] [address] Apr, [facility] [address] [id number] [place] [address] Apr, [facility] [address] [id number] [place] [address] Apr, [facility] [address] [id number] [place] Apr, [facility] [address] [id number] [place] [address] Apr, [facility] [address] [id number] [place] [address] Mar, [facility] [address] [id number] [place] [address] 27 Mar, 2013 [facility] [address] [id number] [place] [address] Mar, [facility] [address] [id number] [place] [address] 27 Mar, 2013 [facility] [address] [id number] [place] [address] Mar, [facility] [address] [id number] [place] [address] 19 Mar, 2013 [facility] [place] [facility] [address] [id number] [place] [address] 18 Mar, 2013 [facility] [place] [facility] [address] [id number] [place] [address] 18 Mar, 2013 [facility] [address] [id number] [place] [address]- [address] 14 Mar, 2013 [facility] [place] [facility] [address] [id number] [place] [address] 14 Mar, 2013 [facility] [place] [facility] [address] [id number] [place] [address] Mar, [facility] [place] [facility] [address] [id number] [place] [address] Mar, [facility] [place] [facility] [address] [id number] [place] [address]- [address] Mar, [facility] [place] [facility] [address] [id number] [place] [address] Mar, [facility] [place] [facility] [address] [id number] [place] [address] Mar, [facility] [place] [facility] [address] [id number] [place] [address] Mar, [facility] [place] [facility] [address] [id number] [place] [address] Mar, [facility] [place] [facility] [address] [id number] [place] [address] Mar, [facility] [place] [facility] [address] [id number], [place] [address] Feb, [facility] [place] [facility] [address] [id number], [place] [address] Feb, [facility] [place] [facility] [address] [id number], [place] [address] Feb, [facility] [place] [facility] [address] [id number] [place] [address]- [address] Feb, [facility] [place] [facility] [address] [id number] [place] [address] Feb, [facility] [place] [facility] [address] [id number] [place] [address] Feb, [facility] [place] [facility] [address] [id number], [place] [address] Feb, [facility] [address], [place] [address] Feb, [facility] [address], [place] [address] Feb, [facility] [address] [id number], [place] [address] 15 Feb, 2013 [facility] [id number] [place] [address] 15 Feb, 2013 [facility] [id number] [place] [address]- [address] 14 Feb, 2013 [facility] [id number] [place] [address]- [address] 26 Jan, 2013 [facility] [id number] [place] [address]- [address] 25 Jan, 2013 [facility] [address], [place] [address] 24 Jan, 2013 [facility] [id number] [place] [address]- [address] 23 Jan, 2013 [facility] [address], [place] [address] 20 Jan, 2013 [facility] [address], [place] [address] 19 Jan, 2013 [facility] [address], [place] [address] 18 Jan, 2013 IMMUNIZATIONS No Known Immunizations SOCIAL HISTORY Never Assessed REASON FOR VISIT Chronic Pain Evaluation-Nadia,RN PLAN OF CARE Activity Details Follow Up we will call to transition to [facility] Reason: VITAL SIGNS Height 53.5 in 2017-12-01 Weight 165 lbs 2017-12-01 Temperature 98.1 degrees Fahrenheit 2017-12-01 Heart Rate 122 bpm 2017-12-01 Respiratory Rate 18 2017-12-01 BMI 40.53 kg/m2 2017-12-01 Blood pressure systolic 140 mmHg 2017-12-01 Blood pressure diastolic 78 mmHg 2017-12-01 MEDICATIONS Medication Instructions Dosage Frequency Start Date End Date Duration Status Ventolin HFA 108 (90 Base) MCG/ACT Inhalation every 6 hrs 2 puffs as needed 6h Active Cymbalta 30 MG Orally Once a day 1 capsule 24h Active Flomax 0.4 MG Orally Once a day 1 capsule 24h Active Atorvastatin Calcium 80 MG Orally Once a day 1 tablet 24h Active Geodon 80 MG Orally Once a day 1 capsule with food 24h Active Mobic 15 mg Orally Once a day 1 tablet 24h 05 Nov, 2017 3 Jan, 2018 30 day(s) Active Bumetanide 1 MG Orally Once a day 1 tablet 24h 30 days Active Fish Oil 1200 MG Orally Once a day 1 capsule 24h Active Potassium Chloride ER 10 MEQ Orally Twice a day 1 tablet with food 12h Feb, 30 days Active Anoro Ellipta 62.5-25 MCG/INH Inhalation Once a day 1 puff 24h Feb, 30 days Active Nortriptyline HCl 10 mg Orally Once a day 1 capsule 24h 30 days Active Metoprolol Succinate ER 100 MG Orally Once a day 1 tablet 24h Active Geodon 40 mg Orally Once a day 1 capsule with food 24h Active Reclast 5 MG/100ML Intravenous Once per year as directed 1 dose Active NovoLog 100 UNIT/ML Subcutaneous At Meals 8 units, increasing 1 for every 50 Active Montelukast Sodium 10 mg Orally Once a day 1 tablet 24h 30 days Active Savella 50 MG Orally Twice a day 1 tablet 12h Active Fenofibrate 145 MG Orally Once a day 1 tablet with food 24h Active Myrbetriq 25 MG Orally Once a day 1 tablet 24h Active Flovent HFA 220 MCG/ACT Inhalation Twice a day 1 puff 12h Feb, 30 days Active Magnesium 200 MG Orally Once a day 2 tablets with a meal 24h Active Vitamin C & E Complex 6,000mg by oral route Once a day 1 tablet 24h Active Ambien CR 12.5 MG Orally Once a day 1 tablet at bedtime as needed 24h Active Lantus 100 UNIT/ML 54 units daily Active Pyridium 200 MG Orally Three times a day 1 tablet after meals 8h Active Cetirizine HCl 10 MG Orally Once a day 1 tablet 24h Active Voltaren 1 % Active Vitamin D-3 5000 UNIT Orally Once a day 1 tablet 24h Active RESULTS No Results PROCEDURES Procedure Date Ordered Result Body Site [facility] VISIT ESTABLISHED PATIENT December 01, 2017 INSTRUCTIONS MEDICATIONS ADMINISTERED No Known Medications MEDICAL [...]
--- OUTSIDE RECORDS SUMMARY | 2018-05-10 07:37 | XMS REPORT ---
Author Author EDVINJOSE SERRANO [facility] [place] Address [address] [place] [address] Care Team Providers Care Scrubber Machine Tender Name Role Phone JOSE DOBBS Unavailable PROBLEMS Type Condition ICD9-CM Code [id number] Code Onset Dates Condition Status SNOMED Code Problem Lumbar back pain with radiculopathy affecting right lower extremity M54.16 Active 057903345 Problem Lumbar back pain with radiculopathy affecting left lower extremity M54.16 Active 172407975 Problem Non-seasonal allergic rhinitis, unspecified trigger J30.89 Active 41219094 Problem Moderate persistent asthma without complication J45.40 Active 104451788 Problem Body mass index (BMI) of 40.0-44.9 in adult Z68.41 Active 834866590 Problem Tobacco use disorder F17.200 Active 119882371 Problem Morbid (severe) obesity due to excess calories E66.01 Active 40636082007331 Problem Benign essential hypertension I10 Active 0670254 Problem Osteogenesis imperfecta Q78.0 Active 60172278 Problem Cervical spinal stenosis M48.02 Active 41890495 Problem Migraine with aura and without status migrainosus, not intractable G43.109 Active 2481937 Problem Sinus tachycardia R00.0 Active 59396091 Problem Myofascial pain syndrome M79.1 Active 399721323 Problem Conversion disorder F44.9 Active 45417176 Problem Cervicalgia M54.2 Active 31364672 Problem Lumbago with sciatica, left side M54.42 Active 830966620 Problem Fibromyalgia M79.7 Active 596293322 Problem Mixed hyperlipidemia E78.2 Active 560030508 Problem Hypertriglyceridemia E78.1 Active 225182673 Problem Leukocytosis, unspecified type D72.829 Active 714503147 Problem Lichen sclerosus L90.0 Active 89368999 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 Active 033749099 Problem Interstitial cystitis N30.10 Active 624575416 Problem Other chronic pain G89.29 Active 00438796 Problem Type 2 diabetes mellitus without complications E11.9 Active 711931053 Problem Osteoporosis, unspecified osteoporosis type, unspecified pathological fracture presence M81.0 Active 51886122 Problem Polypharmacy Z79.899 Active 855591102 Problem AARON (nonalcoholic steatohepatitis) K75.81 Active 537405761 Problem Bipolar 1 disorder F31.9 Active 083335871 ALLERGIES No Information ENCOUNTERS Encounter Location Date Diagnosis [facility] [employer] [address] [id number] [place] [address] Jan [facility] [address] [id number] [place] [address] Jan Migraine with aura and without status migrainosus, not intractable G43.109 and Tendinitis of right forearm M77.9 [facility] [address] [id number] [place] [address] Jan [facility] [address] [id number] [place] [address] Dec 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 ; Adverse effect of unspecified drugs, medicaments and biological substances, initial encounter T50.905A ; Myofascial pain syndrome M79.1 ; Non-intractable vomiting with nausea, unspecified vomiting type R11.2 ; Polypharmacy Z79.899 and BMI 40.0-44.9, adult Z68.41 [place] [address], [place] [address] Dec, Conversion disorder F44.9 [place] [address] [place] [id number] [place] [address] Dec, [facility] [address] [id number] [place] [address] Dec [place] [address] [place] [id number] [place] [address] Dec, [facility] [address] [id number] [place] [address] Dec Type 2 diabetes mellitus without complications E11.9 and BMI 40.0-44.9, adult Z68.41 [facility] [address] [id number] [place] [address] Nov [facility] [address] [id number] [place] [address] Nov [facility] [address] [id number] [place] [address] Nov Migraine with aura and without status [...] extremity M54.16 and BMI 40.0-44.9, adult Z68.41 [facility] [address] [facility] [id number] [address] Nov, Other chronic pain G89.29 [facility] [address] [id number] [place] [address] Nov Moderate persistent asthma with exacerbation J45.41 ; Acute bronchitis due to other specified organisms J20.8 ; Tobacco use disorder F17.200 ; Benign essential hypertension I10 ; Hyperlipidemia, unspecified hyperlipidemia type E78.5 ; Fibromyalgia M79.7 ; Interstitial cystitis N30.10 ; Polypharmacy Z79.899 ; Other chronic pain G89.29 ; Non-seasonal allergic rhinitis, unspecified trigger J30.89 and BMI 40.0-44.9, adult Z68.41 [facility] [address] [id number] [place] [address] Nov, Other chronic pain G89.29 ; Fibromyalgia M79.7 ; Bipolar 1 disorder F31.9 and BMI 40.0-44.9, adult Z68.41 [facility] [address] [id number] [place] [address] Oct, Other chronic pain G89.29 [facility] [address] [id number] [place] [address] 15 Oct, 2017 Type 2 diabetes mellitus without complications E11.9 and Other chronic pain G89.29 [facility] [address] [id number] [place] [address] 14 Oct, 2017 Type 2 diabetes mellitus without complications E11.9 ; 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 ; Obesity, [...] type E78.5 and BMI 40.0-44.9, adult Z68.41 [place] [address] [address] Aug, [place] [address] [place] [id number] [place] [address] Aug, [place] [address] [place] [address] [id number] [place] [address] September, [facility] [address] [place] [address] [id number] [place] [address] 83[address] September, [place] [address] [address] Aug, [facility] [address] [place] [id number] [place] [address] Aug, [place] [address] [address] Jul, [facility] [place] [facility] [address] [id number] [place] [address] Jul, [facility] [place] [facility] [address] [id number] [place] [address] Jun, [facility] [place] [facility] [address] [id number] [place] [address] 6[address] Jun, [facility] [place] [facility] [address] [id number] [place] [address] 26[address] Jun, [facility] [place] [facility] [address] [id number] [place] [address] 6987 Jun, [facility] [place] [facility] [address] [id number] [place] [address] 25[address] Jun, [facility] [place] [facility] [address] [id number] [place] [address] 4[address] Jun, [facility] [place] [facility] [address] [id number] [place] [address] 0[address] May, [facility] [place] [facility] [address] [id number] [place] [address] 3[address] May, [facility] [place] [facility] [address] [id number] [place] [address] 89[address] May, [facility] [place] [facility] [address] [id number] [place] [address] 08[address] May, [facility] [place] [facility] [address] [id number] [place] [address] 7819 May, [facility] [place] [facility] [address] [id number] [place] [address] 8958 May, [facility] [place] [facility] [address] [id number] [place] [address] 7689 May, [facility] [place] [facility] [address] [id number] [place] [address] 0328 May, [facility] [place] [facility] [address] [id number] [place] [address]- 5678 30 Apr, 2013 [facility] [address] [id number] [place] [address] 30 Apr, 2013 [facility] [place] [facility] [address] [id number] [place] [address]- 0523 Apr, [facility] [address] [id number] [place] [address]- 2367 Apr, [facility] [place] [facility] [address] [id number] [place] [address] 6406 Apr, [facility] [address] [id number] [place] [address]- 7337 Mar, [facility] [place] [facility] [address] [id number] [place] [address]- 4137 Mar, [facility] [address] [id number] [place] [address]- 3193 Mar, [facility] [place] [facility] [address] [id number] [place] [address]- 9366 27 Mar, 2013 [facility] [place] [facility] [address] [id number] [place] [address]- 8815 Mar, [facility] [place] [facility] [address] [facility] [id number] [place] [address]- 4299 19 Mar, 2013 [facility] [place] [facility] [address] [id number] [place] [address]- 8639 18 Mar, 2013 [facility] [place] [facility] [address] [id number] [place] [address]- 8609 18 Mar, 2013 [facility] [place] [facility] [address] [id number] [place] [address]- 3358 14 Mar, 2013 [facility] [place] [facility] [address] [id number] [place] [address]- 6283 14 Mar, 2013 [facility] [place] [facility] [address] [id number] [place] [address]- 1783 Mar, [facility] [place] [facility] [address] [id number] [place] [address]- 6572 Mar, [facility] [place] [facility] [address] [id number] [place] [address] Mar, [facility] [place] [facility] [address] [id number] [place] [address]- 4273 Mar, [facility] [place] [facility] [address] [id number] [place] [address]- 3294 Mar, [facility] [place] [facility] [address] [id number] [place] [address]- 2748 Mar, [facility] [place] [facility] [address] [id number] [place] [address]- 8405 Mar, [facility] [place] [facility] [address] [id number] [place] [address]- 5789 Mar, [facility] [place] [facility] [address] [id number] [place] [address]- 2802 Feb, [facility] [place] [facility] [address] [id number] [place] [address]- 2042 Feb, [facility] [place] [facility] [address] [id number] [place] [address]- 8564 Feb, [facility] [place] [facility] [address] [id number] [place] [address]- 8315 Feb, [facility] [place] [facility] [address] [id number] [address]- 4685 Feb, [facility] [place] [facility] [address] [id number] [place] [address]- 9012 Feb, [facility] [place] [facility] [address] [id number] [place] [address]- 8782 Feb, [facility] [place] [facility] [address] [id number] [place] [address] Feb, [facility] [place] [facility] [address] [id number] [address] 285[address] Feb, [facility] [address] [place] [address] [id number], [place] [address] 15 Feb, 2013 [facility] [address], [place] [address]- 7[address] 15 Feb, 2013 [facility] [address], [place] [address]- 4[address] 14 Feb, 2013 [facility] [address], [place] [address]- 5760 26 Jan, 2013 [facility] [address] [place] [address] [id number], [place] [address]- 0065 25 Jan, 2013 [facility] [address], [place] [address]- 0[address] 24 Jan, 2013 [facility] [address] [place] [address]- 0705 23 Jan, 2013 [facility] [address], [place] [address]- 1144 20 Jan, 2013 [facility] [address] [id number], [place] [address]- 5840 19 Jan, 2013 [facility] [address] [id number], [place] [address]- 101[address] 18 Jan, 2013 IMMUNIZATIONS No Known Immunizations SOCIAL HISTORY Never Assessed REASON FOR VISIT DM ED scheduled PLAN OF CARE VITAL SIGNS MEDICATIONS Unknown [...] History Nonalcoholic fatty liver disease: Liver panel 3/19/18: AST 44 , alkaline phosphatase 89. Liver [...]
--- OUTSIDE RECORDS SUMMARY | 2018-05-10 07:38 | XMS REPORT ---
Author Author JOSE L TOBIAS Organization [facility] Address [address] [place] [address] Care Team Providers Care Journeyman Pipe Fitter Name Role Phone MICHELINE JOSE L Unavailable PROBLEMS Type Condition ICD9-CM Code [id number] Code Onset Dates Condition Status SNOMED Code Problem Lumbar back pain with radiculopathy affecting right lower extremity M54.16 Active 280397623 Problem Lumbar back pain with radiculopathy affecting left lower extremity M54.16 Active 823308446 Problem Non-seasonal allergic rhinitis, unspecified trigger J30.89 Active 96724172 Problem Moderate persistent asthma without complication J45.40 Active 585786727 Problem Body mass index (BMI) of 40.0-44.9 in adult Z68.41 Active 111337212 Problem Tobacco use disorder F17.200 Active 807983996 Problem Morbid (severe) obesity due to excess calories E66.01 Active 70667431115007 Problem Benign essential hypertension I10 Active 6463724 Problem Osteogenesis imperfecta Q78.0 Active 01032985 Problem Cervical spinal stenosis M48.02 Active 29606282 Problem Migraine with aura and without status migrainosus, not intractable G43.109 Active 9091859 Problem Sinus tachycardia R00.0 Active 13018329 Problem Myofascial pain syndrome M79.1 Active 200710782 Problem Conversion disorder F44.9 Active 33545417 Problem Cervicalgia M54.2 Active 80100910 Problem Lumbago with sciatica, left side M54.42 Active 295399110 Problem Fibromyalgia M79.7 Active 864790587 Problem Mixed hyperlipidemia E78.2 Active 271567639 Problem Hypertriglyceridemia E78.1 Active 049077080 Problem Leukocytosis, unspecified type D72.829 Active 435179850 Problem Lichen sclerosus L90.0 Active 66660726 Problem 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 Active 663697384 Problem Interstitial cystitis N30.10 Active 127530175 Problem Other chronic pain G89.29 Active 73715190 Problem Type 2 diabetes mellitus without complications E11.9 Active 816563589 Problem Osteoporosis, unspecified osteoporosis type, unspecified pathological fracture presence M81.0 Active 28767838 Problem Polypharmacy Z79.899 Active 095914838 Problem AARON (nonalcoholic steatohepatitis) K75.81 Active 500155325 Problem Bipolar 1 disorder F31.9 Active 917983235 ALLERGIES No Information ENCOUNTERS Encounter Location Date Diagnosis [facility] [address] [id number] [place] [address] Jan [facility] [address] [id number] [place] [address] Jan [facility] [address] [id number] [place] [address] Jan [facility] [address] [id number] [place] [address] Dec 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 ; Adverse effect of unspecified drugs, medicaments and biological substances, initial encounter T50.905A ; Myofascial pain syndrome M79.1 ; Non-intractable vomiting with nausea, unspecified vomiting type R11.2 ; Polypharmacy Z79.899 and BMI 40.0-44.9, adult Z68.41 [place] [address] [address] 244[address] Dec, Conversion disorder F44.9 [facility] [address] [place] [id number] [address]- 1135 Dec, [facility] [address] [id number] [place] [address] Dec [facility] [address]00565100[place] [address]- 8275 Dec, [facility] [address] [id number] [place] [address] Dec Type 2 diabetes mellitus without complications E11.9 and BMI 40.0-44.9, adult Z68.41 [facility] [address] [id number] [place] [address] Nov [facility] [address] [id number] [place] [address] Nov [facility] [address] [id number] [place] [address] Nov Migraine with aura and without status [...] extremity M54.16 and BMI 40.0-44.9, adult Z68.41 [facility] [address] [facility] [id number] [address] Nov, Other chronic pain G89.29 [facility] [address] [id number] [place] [address] Nov Moderate persistent asthma with exacerbation J45.41 ; Acute bronchitis due to other specified organisms J20.8 ; Tobacco use disorder F17.200 ; Benign essential hypertension I10 ; Hyperlipidemia, unspecified hyperlipidemia type E78.5 ; Fibromyalgia M79.7 ; Interstitial cystitis N30.10 ; Polypharmacy Z79.899 ; Other chronic pain G89.29 ; Non-seasonal allergic rhinitis, unspecified trigger J30.89 and BMI 40.0-44.9, adult Z68.41 [facility] [address] [id number] [address] Nov, Other chronic pain G89.29 ; Fibromyalgia M79.7 ; Bipolar 1 disorder F31.9 and BMI 40.0-44.9, adult Z68.41 [facility] [address] [id number], [place] [address] Oct, Other chronic pain G89.29 [facility] [address] [id number] [address] 15 Oct, 2017 Type 2 diabetes mellitus without complications E11.9 and Other chronic pain G89.29 [facility] [address] [id number] [address] 14 Oct, 2017 Type 2 diabetes mellitus without complications E11.9 ; skilled nursing current use of insulin Z79.4 ; Obesity, [...] type E78.5 and BMI 40.0-44.9, adult Z68.41 [facility] [address] [place] [address]- 2629 Aug, [facility] [address]00565100[place] [address]- 4800 Aug, [facility] [address]00565100[place] [address]- 0825 September, [facility] [address]00565100[place] [address]- 3153 September, [facility] [address] [place] [address]- 5272 Aug, [facility] [address] [place] [id number] [place] [address]48- 8385 Aug, [facility] [address]100[place] [address] Jul, [facility] [address] [place] [id number] [place] [address]- 7871 Jul, [facility] [place] [facility] [address] [id number] [place] [address]- 5604 Jun, [facility] [place] [facility] [address] [id number] [place] [address]- 1936 Jun, [facility] [place] [facility] [address] [id number] [place] [address]- 2932 Jun, [facility] [place] [facility] [address] [id number] [place] [address]- 5912 Jun, [facility] [place] [facility] [address] [id number] [place] [address]- 8727 Jun, [facility] [place] [facility] [address] [id number] [place] [address]- 2529 Jun, [facility] [place] [facility] [address] [id number] [place] [address]- 3627 May, [facility] [place] [facility] [address] [id number] [place] [address]- 5076 May, [facility] [place] [facility] [address] [id number] [place] [address]- 7769 May, [facility] [place] [facility] [address] [id number] [place] [address]- 7197 May, [facility] [place] [facility] [address] [id number] [place] [address]- 4112 May, [facility] [place] [facility] [address] [id number] [place] [address]- 6825 May, [facility] [place] [facility] [address] [id number] [place] [address]- 3698 May, [facility] [place] [facility] [address] [id number] [place] [address]- 5268 May, [facility] [place] [facility] [address] [id number] [place] [address]- 6813 Apr, [facility] [place] [facility] [address] [id number] [place] [address]- 0758 30 Apr, 2013 [facility] [address] [id number] [place] [address]- 3503 Apr, [facility] [address] [id number] [place] [address]- 8220 Apr, [facility] [address] [id number] [place] [address]- 1465 Apr, [facility] [address] [id number] [place] [address]- 5707 Mar, [facility] [address] [id number] [place] [address]- 0125 Mar, [facility] [address] [id number] [place] [address]- 8714 Mar, [facility] [address] [id number] [place] [address]- 2932 Mar, [facility] [address] [id number] [place] [address]- 1705 Mar, [facility] [address] [id number] [place] [address]- 1747 Mar, [facility] [address] [id number] [place] [address]- 6577 18 Mar, 2013 [facility] [address] [id number] [place] [address]- 7257 18 Mar, 2013 [facility] [address] [id number] [place] [address]- 8242 14 Mar, 2013 [facility] [place] [facility] [address] [id number] [place] [address]- 3606 14 Mar, 2013 [facility] [address] [id number] [place] [address]- 9155 12 Mar, 2013 [facility] [place] [facility] [address] [id number] [place] [address]- 0696 Mar, [facility] [place] [facility] [address] [id number] [place] [address]- 5826 Mar, [facility] [place] [facility] [address] [id number] [place] [address]- 0574 Mar, [facility] [place] [facility] [address] [id number] [place] [address]- 4744 Mar, [facility] [place] [facility] [address] [id number] [place] [address]- 1164 Mar, [facility] [place] [facility] [address] [id number] [place] [address]- 1000 Mar, [facility] [place] [facility] [address] [id number] [place] [address]- 3948 Mar, [facility] [place] [facility] [address] [id number] [place] [address]- 8799 Feb, [facility] [place] [facility] [address] [id number] [place] [address]- 1164 Feb, [facility] [place] [facility] [address] [id number] [place] [address] Feb, [facility] [place] [facility] [address] [id number] [place] [address] Feb, [facility] [place] [facility] [address] [id number] [place] [address] Feb, [facility] [place] [facility] [address] [id number] [place] [address] Feb, [facility] [place] [facility] [address] [id number] [place] [address] Feb, [facility] [place] [facility] [address] [id number] [place] [address] Feb, [facility] [place] [facility] [address] [id number] [place] [address] Feb, [facility] [place] [facility] [address] [id number] [place] [address] 15 Feb, 2013 [facility] [id number] [address] 15 Feb, 2013 [facility] [id number] [address] 14 Feb, 2013 [facility] [id number] [address] 26 Jan, 2013 [facility] [id number] [place] [address] 25 Jan, 2013 [facility] [id number] [place] [address] 24 Jan, 2013 [facility] [id number] [place] [address] Jan, [facility] [id number] [place] [address] 20 Jan, 2013 [facility] [id number] [address] 19 Jan, 2013 [facility] [id number] [address] Jan, IMMUNIZATIONS No Known Immunizations SOCIAL HISTORY Never Assessed REASON FOR VISIT Medication refill request PLAN OF CARE VITAL SIGNS MEDICATIONS Medication Instructions Dosage Frequency Start Date End Date Duration Status Mobic 15 mg Orally Once a day 1 tablet 24h Nov, 30 day(s) Active RESULTS No Results PROCEDURES No Known [...] contrast 11/18/2017: Normal Medical History twisted rib-seeing Surgical History Tonsillectomy Surgical History Exploratory laparoscopy [...]
--- OUTSIDE RECORDS SUMMARY | 2018-05-10 07:38 | XMS REPORT ---
Author Author EDVINJOSE SERRANO [facility] Address [address] [place] [address] Care Team Providers Care Undercollar Baster Name Role Phone JOSE DOBBS Unavailable PROBLEMS Type Condition ICD9-CM Code LVN38-EV Code Onset Dates Condition Status SNOMED Code Problem Lumbar back pain with radiculopathy affecting right lower extremity M54.16 Active 075305188 Problem Lumbar back pain with radiculopathy affecting left lower extremity M54.16 Active 954065678 Problem Non-seasonal allergic rhinitis, unspecified trigger J30.89 Active 13753229 Problem Moderate persistent asthma without complication J45.40 Active 208718382 Problem Body mass index (BMI) of 40.0-44.9 in adult Z68.41 Active 232667032 Problem Tobacco use disorder F17.200 Active 506247765 Problem Morbid (severe) obesity due to excess calories E66.01 Active 77953534576683 Problem Benign essential hypertension I10 Active 6941483 Problem Osteogenesis imperfecta Q78.0 Active 58750937 Problem Cervical spinal stenosis M48.02 Active 56373950 Problem Migraine with aura and without status migrainosus, not intractable G43.109 Active 3492896 Problem Sinus tachycardia R00.0 Active 89124118 Problem Myofascial pain syndrome M79.1 Active 507839641 Problem Conversion disorder F44.9 Active 39695144 Problem Cervicalgia M54.2 Active 77188996 Problem Lumbago with sciatica, left side M54.42 Active 662111165 Problem Fibromyalgia M79.7 Active 884097953 Problem Mixed hyperlipidemia E78.2 Active 825404770 Problem Hypertriglyceridemia E78.1 Active 345573974 Problem Leukocytosis, unspecified type D72.829 Active 916411491 Problem Lichen sclerosus L90.0 Active 21934729 Problem 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 Active 290920607 Problem Interstitial cystitis N30.10 Active 615562359 Problem Other chronic pain G89.29 Active 63799091 Problem Type 2 diabetes mellitus without complications E11.9 Active 733642203 Problem Osteoporosis, unspecified osteoporosis type, unspecified pathological fracture presence M81.0 Active 54809479 Problem Polypharmacy Z79.899 Active 604405931 Problem AARON (nonalcoholic steatohepatitis) K75.81 Active 647346216 Problem Bipolar 1 disorder F31.9 Active 956078940 ALLERGIES Substance Reaction Event Type Date Status Vicodin nausea and vomiting Drug Allergy Nov, Active Lyrica Unknown Drug Allergy Nov, Active Januvia pancreatitis Drug Allergy Nov, Active Bactrim rash Drug Allergy Nov, Active Aspirin abdominal pain Drug Allergy Nov, Active Tramadol Unknown Drug Allergy Nov, Active Methadone Unknown Drug Allergy Nov, Active ENCOUNTERS Encounter Location Date [facility] [address] [id number] [place] [address] Jan [facility] [address] [id number] [place] [address] Jan Migraine with aura and without status migrainosus, not intractable G43.109 and Tendinitis of right forearm M77.9 [facility] [id number] [place] [address] Jan [facility] [address] [id number] [place] [address] Dec 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 ; Adverse effect of unspecified drugs, medicaments and biological substances, initial encounter T50.905A ; Myofascial pain syndrome M79.1 ; Non-intractable vomiting with nausea, unspecified vomiting type R11.2 ; Polypharmacy Z79.899 and BMI 40.0-44.9, adult Z68.41 [facility] [address] [id number] [address] Dec, Conversion disorder F44.9 [facility] [address] [id number] [address] Dec, [facility] [address] [id number] [place] [address] Dec [facility] [address] [facility] [id number] [place] [address] Dec, [facility] [address] [id number] [place] [address] Dec Type 2 diabetes mellitus without complications E11.9 and BMI 40.0-44.9, adult Z68.41 [facility] [address] [id number] [place] [address] Nov [facility] [address] [id number] [place] [address] Nov [facility] [address] [id number] [place] [address] Nov Migraine with aura and without status [...] extremity M54.16 and BMI 40.0-44.9, adult Z68.41 [facility] [address] [facility] [id number], [place] [address] Nov, Other chronic pain G89.29 [facility] [address] [id number] [place] [address] Nov Moderate persistent asthma with exacerbation J45.41 [...] [facility] [address] [id number] [address] Nov, Other chronic pain G89.29 ; Fibromyalgia M79.7 ; Bipolar 1 disorder F31.9 and BMI 40.0-44.9, adult Z68.41 [facility] [address] [id number] [address] Oct, Other chronic pain G89.29 [facility] [address] [id number] [address] 15 Oct, 2017 Type 2 diabetes mellitus without complications E11.9 and Other chronic pain G89.29 [facility] [address] [id number] [place] [address] 14 Oct, 2017 Type 2 diabetes mellitus [...] type E78.5 and BMI 40.0-44.9, adult Z68.41 [id number], [place] [address] Aug, [facility] [id number] [place] [address] Aug, [id number] [place] [address] September, [facility] [id number], [place] [address] September, [id number] [place] [address] [place] [address] Aug, [facility] [place] [facility] [address] [id number] [place] [address] Aug, [facility] [place] [facility] [address] [id number] [place] [address] Jul, [facility] [place] [facility] [address] [id number] [place] [address] Jul, [facility] [place] [facility] [address] [id number] [place] [address] Jun, [facility] [place] [facility] [address] [id number] [place] [address] Jun, [facility] [place] [facility] [address] [id number] [place] [address] Jun, [facility] [place] [facility] [address] [id number] [place] [address] Jun, [facility] [place] [facility] [address] [id number] [place] [address] Jun, [facility] [place] [facility] [address] [id number] [place] [address] Jun, [facility] [place] [facility] [address] [id number] [place] [address] May, [facility] [place] [facility] [address] [id number] [place] [address] May, [facility] [place] [facility] [address] [id number] [place] [address] May, [facility] [place] [facility] [address] [id number] [place] [address] May, [facility] [place] [facility] [address] [id number] [place] [address] May, [facility] [place] [facility] [address] [id number] [place] [address] May, [facility] [address] [id number] [place] [address] May, [facility] [place] [facility] [address] [id number] [place] [address] May, [facility] [place] [facility] [address] [id number] [place] [address] Apr, [facility] [place] [facility] [address] [id number] [place] [address] Apr, [facility] [place] [facility] [address] [id number] [place] [address] Apr, [facility] [place] [facility] [address] [id number] [place] [address] Apr, [facility] [place] [facility] [address] [facility] [id number] [place] [address] Apr, [facility] [place] [facility] [address] [id number], [place] [address] Mar, [facility] [place] [facility] [address] [id number] [place] [address] Mar, [facility] [place] [facility] [address] [id number], [place] [address] Mar, [facility] [place] [facility] [address] [id number], [place] [address] Mar, [facility] [place] [facility] [address] [id number], [place] [address] Mar, [facility] [place] [facility] [address] [id number] [place] [address] Mar, [facility] [place] [facility] [address] [id number], [place] [address] Mar, [facility] [place] [facility] [address] [id number], [place] [address] Mar, [facility] [place] [facility] [address] [id number], [place] [address] 14 Mar, 2013 [facility] [place] [facility] [address] [id number] [place] [address] 14 Mar, 2013 [facility] [place] [facility] [address] [id number] [place] [address] Mar, [facility] [place] [facility] [address] [id number] [place] [address] 12 Mar, 2013 [facility] [place] [facility] [address] [id number] [place] [address] 07 Mar, 2013 [facility] [place] [facility] [address] [id number] [place] [address] 07 Mar, 2013 [facility] [place] [facility] [address] [id number] [place] [address] Mar, [facility] [place] [facility] [address] [facility] [id number] [place] [address] Mar, [facility] [place] [facility] [address] [id number] [place] [address] Mar, [facility] [place] [facility] [address] [facility] [id number] [place] [address] Mar, [facility] [place] [facility] [address] [facility] [id number] [place] [address] Feb, [facility] [place] [facility] [address] [id number], [place] [address] Feb, [facility] [place] [facility] [address] [id number], [place] [address] Feb, [facility] [place] [facility] [address] [id number] [place] [address] Feb, [facility] [place] [facility] [address] [id number] [place] [address] Feb, [facility] [place] [facility] [address] [facility] [id number] [place] [address] Feb, [facility] [place] [facility] [id number], [place] [address] Feb, [facility] [id number], [place] [address] Feb, [facility] [id number], [place] [address] Feb, [facility] [id number] [place] [address] 15 Feb, 2013 [facility] [address] [facility] [id number], [place] [address] 15 Feb, 2013 [facility] [id number] [place] [address] 14 Feb, 2013 [facility] [id number] [place] [address] 26 Jan, 2013 [facility] [id number] [place] [address] 25 Jan, 2013 [facility] [id number], [place] [address] 24 Jan, 2013 [facility] [id number], [place] [address] 23 Jan, 2013 [facility] [address], [place] [address] 20 Jan, 2013 [facility] [id number], [place] [address] 19 Jan, 2013 [facility] [address] [id number], [place] [address] 18 Jan, 2013 IMMUNIZATIONS No Known Immunizations SOCIAL HISTORY Never Assessed REASON FOR VISIT Establish Care-Patient with c/o migraine that has been ongoing since yesterday. Shashi DODSON PLAN OF CARE Activity Details Follow Up 3 Months Reason:Diabetes/CHM VITAL SIGNS Height 53.5 in 2017-12-19 Weight 170.5 lbs 2017-12-19 Temperature 97.9 degrees Fahrenheit 2017-12-19 Heart Rate 90 bpm 2017-12-19 Respiratory Rate 18 2017-12-19 Oximetry 97 % 2017-12-19 BMI 41.88 kg/m2 2017-12-19 Blood pressure systolic 124 mmHg 2017-12-19 Blood pressure diastolic 82 mmHg 2017-12-19 MEDICATIONS Medication Instructions Dosage Frequency Start Date End Date Duration Status Chantix 1 MG Orally Twice a day 1 tablet 12h 30 day(s) Active NovoLog 100 UNIT/ML Subcutaneous At Meals 8 units, increasing 1 for every 50 Active Vitamin C & E Complex 6,000mg by oral route Once a day 1 tablet 24h Active Reclast 5 MG/100ML Intravenous Once per year as directed 1 dose Active Flomax 0.4 MG Orally Once a day 1 capsule 24h Active Potassium Chloride ER 10 MEQ Orally Twice a day 1 tablet with food 12h Feb, 30 days Active Metoprolol Succinate ER 100 MG Orally Once a day 1 tablet 24h 30 days Active Anoro Ellipta 62.5-25 MCG/INH Inhalation Once a day 1 puff 24h Feb, Active Myrbetriq 25 MG Orally Once a day 1 tablet 24h 30 days Active Bumetanide 1 MG Orally Once a day 1 tablet 24h 30 days Active Chantix Starting Month Simon 0.5 MG X 11 & 1 MG X 42 Orally as directed as directed Active Atorvastatin Calcium 80 MG Orally Once a day 1 tablet 24h 30 days Active Fish Oil 1200 MG Orally Once a day 1 capsule 24h Active Geodon 40 mg Orally Once a day 1 capsule with food 24h Active Cetirizine HCl 10 MG Orally Once a day 1 tablet 24h Active Lantus 100 UNIT/ML 54 units daily Active Fenofibrate 145 MG Orally Once a day 1 tablet with food 24h 90 days Active Mobic 15 mg Orally Once a day 1 tablet 24h Nov, 30 day(s) Active Geodon 80 MG Orally Once a day 1 capsule with food 24h Active Montelukast Sodium 10 mg Orally Once a day 1 tablet 24h 30 days Active Vitamin D-3 5000 UNIT Orally Once a day 1 tablet 24h Active Cymbalta 30 MG Orally Once a day 1 capsule 24h Active Ambien CR 12.5 MG Orally Once a day 1 tablet at bedtime as needed 24h Active Savella 50 MG Orally Twice a day 1 tablet 12h Active Voltaren 1 % Active Sumatriptan Succinate 100 mg Orally once 1 tablet at the start of a migraine ; may take another one two hours later if needed 1 dose Active Ventolin HFA 108 (90 Base) MCG/ACT Inhalation every 6 hrs 2 puffs as needed 6h Active Magnesium 200 MG Orally Once a day 2 tablets with a meal 24h Active Pyridium 200 mg Orally Three times a day 1 tablet after meals 8h 5 May, 2018 30 days Active Flovent HFA 220 MCG/ACT Inhalation Twice a day 1 puff 12h 12 Feb, 2018 Active Nortriptyline HCl 10 mg Orally Once a day 1 capsule 24h 30 days Active RESULTS No Results PROCEDURES Procedure Date Ordered Result Body Site Hemoglobin Test Send Out 0 dollar December 19, 2017 LAB NOT BILLED BY [email or web address] December 19, 2017 [facility] VISIT ESTABLISHED PATIENT December 19, 2017 INSTRUCTIONS MEDICATIONS ADMINISTERED No Known Medications [...]
--- OUTSIDE RECORDS SUMMARY | 2018-05-10 07:39 | XMS REPORT ---
Author Author BREONNA Gomez Organization [facility] Address [address] [address] Care Team Providers Care Tube Dispatcher Name Role Phone BREONNA Gomez Unavailable PROBLEMS Type Condition ICD9-CM Code XZA09-XE Code Onset Dates Condition Status SNOMED Code Problem Lumbar back pain with radiculopathy affecting right lower extremity M54.16 Active 076796009 Problem Lumbar back pain with radiculopathy affecting left lower extremity M54.16 Active 207948675 Problem Non-seasonal allergic rhinitis, unspecified trigger J30.89 Active 31442906 Problem Moderate persistent asthma without complication J45.40 Active 983046560 Problem Polypharmacy Z79.899 Active 800967400 Problem Body mass index (BMI) of 40.0-44.9 in adult Z68.41 Active 201902746 Problem Tobacco use disorder F17.200 Active 151881296 Problem Morbid (severe) obesity due to excess calories E66.01 Active 52267452547792 Problem Benign essential hypertension I10 Active 5933192 Problem Sinus tachycardia R00.0 Active 61338964 Problem Cervical spinal stenosis M48.02 Active 25831780 Problem Conversion disorder F44.9 Active 61941738 Problem Leukocytosis, unspecified type D72.829 Active 382141164 Problem Lumbago with sciatica, left side M54.42 Active 060599472 Problem Fibromyalgia M79.7 Active 848179538 Problem Osteogenesis imperfecta Q78.0 Active 60699409 Problem Hypertriglyceridemia E78.1 Active 308802805 Problem Migraine with aura and without status migrainosus, not intractable G43.109 Active 8231080 Problem Lichen sclerosus L90.0 Active 85282727 Problem Mixed hyperlipidemia E78.2 Active 016895722 Problem Type 2 diabetes mellitus without complications E11.9 Active 714454915 Problem 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.4 Active 749136338 Problem Cervicalgia M54.2 Active 60897245 Problem Other chronic pain G89.29 Active 92422994 Problem Bipolar 1 disorder F31.9 Active 515619618 Problem Osteoporosis, unspecified osteoporosis type, unspecified pathological fracture presence M81.0 Active 27742849 Problem Interstitial cystitis N30.10 Active 431812168 Problem AARON (nonalcoholic steatohepatitis) K75.81 Active 904287996 ALLERGIES No Information ENCOUNTERS Encounter Location Date Diagnosis [facility] [address] [id number] [place] [address] Jan [facility] [address] [id number] [place] [address] Dec BMI 40.0-44.9, adult Z68.41 ; Adverse effect of unspecified drugs, medicaments and biological substances, initial encounter T50.905A and 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 [place] [address] [place] [address] Dec, Conversion disorder F44.9 [place] [address] [place] [id number] [place] [address] Dec, [facility] [address] [id number] [place] [address] Dec [place] [address] [place] [address] 24[address] Dec, [facility] [address] [id number] [place] [address] Dec Type 2 diabetes mellitus without complications E11.9 and BMI 40.0-44.9, adult Z68.41 [facility] [address] [id number] [place] [address] Nov [facility] [address] [id number] [place] [address] Nov [facility] [address] [id number] [place] [address] Nov Migraine with aura and without status [...] extremity M54.16 and BMI 40.0-44.9, adult Z68.41 [facility] [address] [facility] [id number] [place] [address] Nov, Other chronic pain G89.29 [facility] [address] [id number] [place] [address] Nov Moderate persistent asthma with exacerbation J45.41 [...] [facility] [id number] [place] [address] 05 Nov, 2017 Other chronic pain G89.29 ; Fibromyalgia M79.7 ; Bipolar 1 disorder F31.9 and BMI 40.0-44.9, adult Z68.41 [facility] [id number] [address] Oct, Other chronic pain G89.29 [facility] [address] [id number] [place] [address] 15 Oct, 2017 Type 2 diabetes mellitus without complications E11.9 and Other chronic pain G89.29 [facility] [address] [id number] [address] 14 Oct, 2017 Type 2 diabetes mellitus without complications E11.9 ; long-term current use of insulin Z79.4 ; Obesity, [...] type E78.5 and BMI 40.0-44.9, adult Z68.41 [facility] [address] [address] Aug, [facility] [address] [address] Aug, [facility] [address] [address] September, [facility] [address] [place] [id number] [place] [address] September, [facility] [address] [place] [id number] [place] [address] Aug, [facility] [address] [place] [id number] [place] [address] 9586 Aug, [facility] [address] [place] [id number] [place] [address] Jul, [facility] [address] [place] [id number] [place] [address] Jul, [facility] [address] [place] [id number] [place] [address]- 7305 Jun, [facility] [address] [place] [id number] [place] [id number]- 1712 Jun, [facility] [address] [place] [id number] [place] [address] 9568 Jun, [facility] [address] [id number] [place] [address] Jun, [facility] [place] [facility] [address] [id number] [place] [address] 9[address] Jun, [facility] [place] [facility] [address] [id number] [place] [address] 8560 Jun, [facility] [place] [facility] [address] [id number] [place] [address] May, [facility] [address] [id number] [place] [address] 4[address] May, [facility] [address] [id number] [place] [address] May, [facility] [address] [id number] [place] [address] 4246 May, [facility] [place] [facility] [address] [id number] [place] [address] 1793 May, [facility] [address] [id number] [place] [address] May, [facility] [place] [facility] [address] [facility] [id number] [place] [address] 1005 May, [facility] [address] [id number] [place] [address] 0713 May, [facility] [place] [facility] [address] [id number] [place] [address] 1169 Apr, [facility] [place] [facility] [address] [id number] [place] [address] 3188 Apr, [facility] [place] [facility] [address] [id number] [place] [address] 7039 Apr, [facility] [place] [facility] [address] [facility] [id number] [place] [address] 69[address] Apr, [facility] [place] [facility] [address] [id number] [place] [address]- 1063 Apr, [facility] [place] [facility] [address] [id number] [place] [address] 3087 Mar, [facility] [place] [facility] [address] [id number] [place] [address]- 4904 Mar, [facility] [place] [facility] [address] [id number] [place] [address] 2866 Mar, [facility] [place] [facility] [address] [id number] [place] [address]- 2865 Mar, [facility] [place] [facility] [address] [id number] [place] [address] 1349 Mar, [facility] [place] [facility] [address] [id number] [place] [address] 7819 Mar, [facility] [place] [facility] [address] [id number] [place] [address]- 4485 Mar, [facility] [place] [facility] [address] [id number] [place] [address] 0746 18 Mar, 2013 [facility] [place] [facility] [address] [id number] [place] [address] 9162 Mar, [facility] [place] [facility] [address] [id number] [place] [address]- 9289 14 Mar, 2013 [facility] [place] [facility] [address] [id number] [place] [address] 9133 Mar, [facility] [place] [facility] [address] [id number] [place] [address] 12 Mar, 2013 [facility] [place] [facility] [address] [id number] [place] [address]- 6100 07 Mar, 2013 [facility] [place] [facility] [address] [id number] [place] [address]- 9491 07 Mar, 2013 [facility] [place] [facility] [address] [id number] [place] [address]- 0878 Mar, [facility] [place] [facility] [address] [id number] [place] [address]- 7565 Mar, [facility] [place] [facility] [address] [id number] [place] [address]- 6020 Mar, [facility] [place] [facility] [address] [id number] [place] [address]- 1582 Mar, [facility] [place] [facility] [address] [id number] [place] [address]- 7254 Feb, [facility] [place] [facility] [address] [id number] [place] [address]- 2690 Feb, [facility] [place] [facility] [address] [id number] [place] [address]- 5831 Feb, [facility] [place] [facility] [address] [id number] [place] [address]- 4709 Feb, [facility] [place] [facility] [address] [id number] [address]- 8871 Feb, [facility] [place] [facility] [address] [id number] [place] [address]- 4960 Feb, [facility] [place] [facility] [address] [id number] [place] [address]- 6226 Feb, [facility] [place] [facility] [address] [id number] [place] [address]- 5334 Feb, [facility] [place] [facility] [address] [id number] [place] [address]- 3652 Feb, [facility] [place] [facility] [address] [id number] [place] [address]- 5309 15 Feb, 2013 [facility] [place] [facility] [address] [id number] [place] [address] 6207 15 Feb, 2013 [facility] [place] [facility] [address] [id number] [place] [address] 14 Feb, 2013 [facility] [place] [facility] [address] [facility] [id number] [place] [address] 44[address] 26 Jan, 2013 [facility] [address] [facility] [id number] [place] [address] 5[address] 25 Jan, 2013 [facility] [address] [facility] [id number] [place] [address] 64[address] 24 Jan, 2013 [facility] [address] [facility] [id number] [place] [address]- 2688 Jan, [facility] [address] [place] [id number] [place] [address] 7[address] 20 Jan, 2013 [facility] [address] [facility] [id number] [place] [address]- 57[address] Jan, [facility] [address] [place] [id number] [place] [address] 18 Jan, 2013 IMMUNIZATIONS No Known Immunizations SOCIAL HISTORY Never Assessed 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
--- OUTSIDE RECORDS SUMMARY | 2018-05-10 07:39 | XMS REPORT ---
Author Author BREONNA Gomez Organization [facility] Address [address] [address] Care Team Providers Care Sugarcane Research Technician Name Role Phone BREONNA Gomez Unavailable PROBLEMS Type Condition ICD9-CM Code IFB32-NM Code Onset Dates Condition Status SNOMED Code Problem Lumbar back pain with radiculopathy affecting right lower extremity M54.16 Active 902951740 Problem Lumbar back pain with radiculopathy affecting left lower extremity M54.16 Active 944501089 Problem Non-seasonal allergic rhinitis, unspecified trigger J30.89 Active 49321561 Problem Moderate persistent asthma without complication J45.40 Active 815084557 Problem Polypharmacy Z79.899 Active 565862344 Problem Body mass index (BMI) of 40.0-44.9 in adult Z68.41 Active 419619151 Problem Tobacco use disorder F17.200 Active 140724259 Problem Morbid (severe) obesity due to excess calories E66.01 Active 84352052287572 Problem Benign essential hypertension I10 Active 7740306 Problem Sinus tachycardia R00.0 Active 34691315 Problem Cervical spinal stenosis M48.02 Active 79192450 Problem Conversion disorder F44.9 Active 94930757 Problem Leukocytosis, unspecified type D72.829 Active 238173092 Problem Lumbago with sciatica, left side M54.42 Active 882475546 Problem Fibromyalgia M79.7 Active 103729358 Problem Osteogenesis imperfecta Q78.0 Active 06111550 Problem Hypertriglyceridemia E78.1 Active 601160665 Problem Migraine with aura and without status migrainosus, not intractable G43.109 Active 3670159 Problem Lichen sclerosus L90.0 Active 02977552 Problem Mixed hyperlipidemia E78.2 Active 006717654 Problem Type 2 diabetes mellitus without complications E11.9 Active 562893486 Problem 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.4 Active 559503152 Problem Cervicalgia M54.2 Active 76117418 Problem Other chronic pain G89.29 Active 05484804 Problem Bipolar 1 disorder F31.9 Active 314686466 Problem Osteoporosis, unspecified osteoporosis type, unspecified pathological fracture presence M81.0 Active 35557321 Problem Interstitial cystitis N30.10 Active 480658102 Problem AARON (nonalcoholic steatohepatitis) K75.81 Active 565980729 ALLERGIES No Information ENCOUNTERS Encounter Location Date Diagnosis [facility] [address] [id number] [place] [address] Jan [facility] [address] [id number] [place] [address] Dec BMI 40.0-44.9, adult Z68.41 ; Adverse effect of unspecified drugs, medicaments and biological substances, initial encounter T50.905A and 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 [place] [address] [address] [place] [address] 68[address] Dec, Conversion disorder F44.9 [place] [address] [address] [place] [id number] [place] [address]- 7703 Dec, [facility] [place] [address] [id number] [place] [address] Dec [place] [address] [address] [place] [address]- 7457 Dec, [facility] [address] [id number] [place] [address] Dec Type 2 diabetes mellitus without complications E11.9 and BMI 40.0-44.9, adult Z68.41 [facility] [address] [id number] [place] [address] Nov [facility] [address] [id number] [place] [address] Nov [facility] [address] [id number] [place] [address] Nov Migraine with aura and without status [...] extremity M54.16 and BMI 40.0-44.9, adult Z68.41 [facility] [address] [facility] [id number] [place] [address] Nov, Other chronic pain G89.29 [facility] [place] [address] [id number] [place] [address] Nov Moderate persistent asthma with exacerbation J45.41 ; Acute bronchitis due to other specified organisms J20.8 ; Tobacco use disorder F17.200 ; Benign essential hypertension I10 ; Hyperlipidemia, unspecified hyperlipidemia type E78.5 ; Fibromyalgia M79.7 ; Interstitial cystitis N30.10 ; Polypharmacy Z79.899 ; Other chronic pain G89.29 ; Non-seasonal allergic rhinitis, unspecified trigger J30.89 and BMI 40.0-44.9, adult Z68.41 [facility] [id number] [place] [address] 05 Nov, 2017 Other chronic pain G89.29 ; Fibromyalgia M79.7 ; Bipolar 1 disorder F31.9 and BMI 40.0-44.9, adult Z68.41 [facility] [id number], [place] [address] Oct, Other chronic pain G89.29 [facility] [address] [id number] [address] 15 Oct, 2017 Type 2 diabetes mellitus without complications E11.9 and Other chronic pain G89.29 [facility] [address] [id number] [address] 14 Oct, 2017 Type 2 diabetes mellitus without complications E11.9 ; [facility] current use of insulin Z79.4 ; Obesity, [...] type E78.5 and BMI 40.0-44.9, adult Z68.41 [facility] [address] [address] Aug, [facility] [address] [address] Aug, [facility] [address] [address]- [address] September, [facility] [address] [place] [id number] [place] [address]- 5[address] September, [facility] [address] [place] [id number] [place] [address]- 8608 Aug, [facility] [address] [place] [id number] [place] [address]- 7607 Aug, [facility] [address] [place] [id number] [place] [address]- 3621 Jul, [facility] [address] [place] [id number] [place] [address]- 3340 Jul, [facility] [address] [place] [id number] [place] [address] [id number]- 0535 Jun, [facility] [address] [place] [id number] [place] [address]- 8329 Jun, [facility] [address] [place] [id number] [place] [address]92- 4404 Jun, [facility] [address] [id number] [place] [address]- 6285 Jun, [facility] [place] [facility] [address] [id number] [place] [address]- 4055 Jun, [facility] [place] [facility] [address] [id number] [place] [address]- 7681 Jun, [facility] [place] [facility] [address] [id number] [place] [address]- 2083 May, [facility] [address] [id number] [place] [address]- 6564 May, [facility] [address] [id number] [place] [address]- 2854 May, [facility] [address] [id number] [place] [address]- 7413 May, [facility] [place] [facility] [address] [id number] [place] [address]- 3713 May, [facility] [address] [id number] [place] [address]- 6146 May, [facility] [place] [facility] [address] [facility] [id number] [place] [address]- 4671 May, [facility] [address] [id number] [place] [address]- 4435 May, [facility] [place] [facility] [address] [id number] [place] [address]- 1898 Apr, [facility] [place] [facility] [address] [id number] [place] [address]- 7633 Apr, [facility] [place] [facility] [address] [id number] [place] [address]- 9049 Apr, [facility] [place] [facility] [address] [facility] [id number] [place] [address]- 2152 Apr, [facility] [place] [facility] [address] [id number] [place] [address]- 8082 Apr, [facility] [place] [facility] [address] [id number] [place] [address]- 0976 Mar, [facility] [place] [facility] [address] [id number] [place] [address]- 1490 Mar, [facility] [place] [facility] [address] [id number] [place] [address]- 5608 Mar, [facility] [place] [facility] [address] [id number] [place] [address]- 0833 Mar, [facility] [place] [facility] [address] [id number] [place] [address]- 3207 Mar, [facility] [place] [facility] [address] [id number] [place] [address]- 4923 Mar, [facility] [place] [facility] [address] [id number] [place] [address]- 0559 Mar, [facility] [place] [facility] [address] [id number] [place] [address]- 3310 18 Mar, 2013 [facility] [place] [facility] [address] [id number] [place] [address]- 2346 Mar, [facility] [place] [facility] [address] [id number] [place] [address]- 9709 14 Mar, 2013 [facility] [place] [facility] [address] [id number] [place] [address]- 8707 Mar, [facility] [place] [facility] [address] [id number] [place] [address]- 5689 12 Mar, 2013 [facility] [place] [facility] [address] [id number] [place] [address]- 8633 07 Mar, 2013 [facility] [place] [facility] [address] [id number] [place] [address]- 6388 07 Mar, 2013 [facility] [place] [facility] [address] [id number] [place] [address]- 2435 Mar, [facility] [place] [facility] [address] [id number] [place] [address]- 7500 Mar, [facility] [place] [facility] [address] [id number] [place] [address]- 9622 Mar, [facility] [place] [facility] [address] [id number] [place] [address]- 5214 Mar, [facility] [place] [facility] [address] [id number] [place] [address]- 3115 Feb, [facility] [place] [facility] [address] [id number] [place] [address]- 4258 Feb, [facility] [place] [facility] [address] [id number] [place] [address]- 0499 Feb, [facility] [place] [facility] [address] [id number] [place] [address]- 5550 Feb, [facility] [place] [facility] [address] [id number], [place] [address]- 5531 Feb, [facility] [place] [facility] [address] [id number] [place] [address]- 7425 Feb, [facility] [place] [facility] [address] [id number], [place] [address]- 4897 Feb, [facility] [place] [facility] [address] [id number], [place] [address]- 6018 Feb, [facility] [place] [facility] [address] [id number], [place] [address]- 9106 Feb, [facility] [place] [facility] [address] [id number], [place] [address]- [address] 15 Feb, 2013 [facility] [address] [id number], [place] [address] 15 Feb, 2013 [facility] [address] [id number], [place] [address] 14 Feb, 2013 [facility] [address] [facility] [id number] [place] [address] 26 Jan, 2013 [facility] [address] [facility] [id number], [place] [address] Jan, [facility] [address] [facility] [id number], [place] [address] Jan, [facility] [address] [facility] [id number], [place] [address] Jan, [facility] [address] [id number], [place] [address] 20 Jan, 2013 [facility] [address] [id number], [place] [address] Jan, [facility] [address] [id number], [place] [address] Jan, IMMUNIZATIONS No Known Immunizations SOCIAL HISTORY Never Assessed REASON FOR VISIT lab-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 PLAN OF CARE VITAL SIGNS MEDICATIONS Unknown Medications RESULTS No Results PROCEDURES Procedure Date Ordered Result Body Site LAB NOT BILLED BY [facility] November 11, 2017 INSTRUCTIONS MEDICATIONS ADMINISTERED No Known Medications [...]
--- OUTSIDE RECORDS SUMMARY | 2018-05-10 07:39 | XMS REPORT ---
Author Author EDVINJOSE SERRANO [facility] Address [address] [place] [address] Care Team Providers Care Tacker Elastic Band Name Role Phone JOSE DOBBS Unavailable PROBLEMS Type Condition ICD9-CM Code GHO14-QW Code Onset Dates Condition Status SNOMED Code Problem Lumbar back pain with radiculopathy affecting right lower extremity M54.16 Active 918902856 Problem Lumbar back pain with radiculopathy affecting left lower extremity M54.16 Active 570529484 Problem Non-seasonal allergic rhinitis, unspecified trigger J30.89 Active 07442242 Problem Moderate persistent asthma without complication J45.40 Active 280001407 Problem Body mass index (BMI) of 40.0-44.9 in adult Z68.41 Active 025650811 Problem Tobacco use disorder F17.200 Active 312204984 Problem Morbid (severe) obesity due to excess calories E66.01 Active 28139614826212 Problem Benign essential hypertension I10 Active 6302275 Problem Osteogenesis imperfecta Q78.0 Active 41436919 Problem Cervical spinal stenosis M48.02 Active 26069341 Problem Migraine with aura and without status migrainosus, not intractable G43.109 Active 9143202 Problem Sinus tachycardia R00.0 Active 96845660 Problem Myofascial pain syndrome M79.1 Active 050132081 Problem Conversion disorder F44.9 Active 63642243 Problem Cervicalgia M54.2 Active 46140885 Problem Lumbago with sciatica, left side M54.42 Active 965062388 Problem Fibromyalgia M79.7 Active 338938718 Problem Mixed hyperlipidemia E78.2 Active 272710653 Problem Hypertriglyceridemia E78.1 Active 389178317 Problem Leukocytosis, unspecified type D72.829 Active 784605574 Problem Lichen sclerosus L90.0 Active 40107466 Problem manager terminal current use of insulin Z79.4 Active 373664348 Problem Interstitial cystitis N30.10 Active 289844510 Problem Other chronic pain G89.29 Active 34608670 Problem Type 2 diabetes mellitus without complications E11.9 Active 961272069 Problem Osteoporosis, unspecified osteoporosis type, unspecified pathological fracture presence M81.0 Active 36771305 Problem Polypharmacy Z79.899 Active 953972852 Problem AARON (nonalcoholic steatohepatitis) K75.81 Active 906906548 Problem Bipolar 1 disorder F31.9 Active 675191570 ALLERGIES Substance Reaction Event Type Date Status Vicodin nausea and vomiting Drug Allergy Nov, Active Lyrica Unknown Drug Allergy Nov, Active Bactrim rash Drug Allergy Nov, Active Aspirin belly pain Drug Allergy Nov, Active Tramadol Unknown Drug Allergy Nov, Active Methadone Unknown Drug Allergy Nov, Active ENCOUNTERS Encounter Location Date Diagnosis [facility] [id number] [place] [address] [facility] [address] [id number] [place] [address] Jan [facility] [address] [id number] [place] [address] Dec 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 ; Adverse effect of unspecified drugs, medicaments and biological substances, initial encounter T50.905A ; Myofascial pain syndrome M79.1 ; Non-intractable vomiting with nausea, unspecified vomiting type R11.2 ; Polypharmacy Z79.899 and BMI 40.0-44.9, adult Z68.41 [id number] [address] Dec, Conversion disorder F44.9 [address] [address] [id number], [place] [address] Dec, [facility] [address] [id number] [place] [address] Dec [address] [id number], [place] [address] Dec, [facility] [address] [id number] [place] [address] Dec Type 2 diabetes mellitus without complications E11.9 and BMI 40.0-44.9, adult Z68.41 [facility] [address] [id number] [place] [address] Nov [facility] [address] [id number] [place] [address] Nov [facility] [address] [id number] [place] [address] Nov Migraine with aura and without status [...] extremity M54.16 and BMI 40.0-44.9, adult Z68.41 [facility] [address] [facility] [id number] [address] Nov, Other chronic pain G89.29 [facility] [address] [id number] [place] [address] Nov Moderate persistent asthma with exacerbation J45.41 [...] [facility] [address] [id number], [place] [address] Nov, Other chronic pain G89.29 ; Fibromyalgia M79.7 ; Bipolar 1 disorder F31.9 and BMI 40.0-44.9, adult Z68.41 [facility] [address] [id number], [place] [address] Oct, Other chronic pain G89.29 [facility] [address] [id number] [place] [address] 15 Oct, 2017 Type 2 diabetes mellitus without complications E11.9 and Other chronic pain G89.29 [facility] [address] [id number] [place] [address] 14 Oct, 2017 Type 2 diabetes mellitus [...] type E78.5 and BMI 40.0-44.9, adult Z68.41 [facility] [id number] [place] [address] Aug, [facility] [id number] [place] [address] Aug, [facility] [id number] [place] [address] September, [facility] [id number] [place] [address] September, [facility] [id number] [place] [address] Aug, [facility] [id number] [place] [address] Aug, [facility] [id number] [place] [address] Jul, [facility] [place] [facility] [address] [id number] [place] [address] Jul, [facility] [place] [facility] [address] [id number] [place] [address] Jun, [facility] [place] [facility] [address] [id number] [place] [address] Jun, [facility] [place] [facility] [address] [id number] [place] [address] Jun, [facility] [place] [facility] [address] [id number] [place] [address] Jun, [facility] [place] [facility] [address] [id number] [place] [address] Jun, [facility] [place] [facility] [address] [id number] [place] [address] Jun, [facility] [place] [facility] [address] [id number] [place] [address] May, [facility] [place] [facility] [address] [id number] [place] [address] May, [facility] [place] [facility] [address] [id number] [place] [address] May, [facility] [place] [facility] [address] [id number] [place] [address] May, [facility] [place] [facility] [address] [id number] [place] [address] May, [facility] [place] [facility] [address] [id number] [place] [address] May, [facility] [place] [facility] [address] [id number] [place] [address] May, [facility] [place] [facility] [address] [id number] [place] [address] May, [facility] [place] [facility] [address] [id number] [place] [address] Apr, [facility] [place] [facility] [address] [id number] [place] [address] Apr, [facility] [place] [facility] [address] [id number] [place] [address] Apr, [facility] [place] [facility] [address] [id number] [place] [address] Apr, [facility] [address] [id number] [place] [address] Apr, [facility] [place] [facility] [address] [id number] [place] [address] Mar, [facility] [address] [id number] [place] [address] Mar, [facility] [address] [id number] [place] [address] Mar, [facility] [place] [facility] [address] [id number] [place] [address] Mar, [facility] [place] [facility] [address] [id number] [place] [address] Mar, [facility] [place] [facility] [address] [id number] [place] [address] Mar, [facility] [place] [facility] [address] [id number] [place] [address] 18 Mar, 2013 [facility] [place] [facility] [address] [id number] [place] [address] 18 Mar, 2013 [facility] [place] [facility] [address] [id number] [place] [address] 14 Mar, 2013 [facility] [place] [facility] [address] [id number] [place] [address] 14 Mar, 2013 [facility] [place] [facility] [address] [id number] [place] [address] Mar, [facility] [place] [facility] [address] [id number] [place] [address] Mar, [facility] [place] [facility] [address] [id number] [place] [address] Mar, [facility] [place] [facility] [address] [id number] [place] [address] Mar, [facility] [place] [facility] [address] [id number] [place] [address] Mar, [facility] [place] [facility] [address] [id number] [place] [address] Mar, [facility] [place] [facility] [address] [id number] [place] [address] Mar, [facility] [place] [facility] [address] [id number] [place] [address] Mar, [facility] [place] [facility] [address] [id number] [place] [address] Feb, [facility] [place] [facility] [address] [id number] [place] [address] Feb, [facility] [place] [facility] [address] [id number] [place] [address] Feb, [facility] [place] [facility] [address] [id number], [place] [address] Feb, [facility] [place] [facility] [address] [id number], [place] [address] Feb, [facility] [place] [facility] [address] [id number] [place] [address] Feb, [facility] [place] [facility] [address] [id number] [place] [address]- [address] Feb, [facility] [place] [facility] [address] [id number] [place] [address]- [address] Feb, [facility] [place] [facility] [address], [place] [address] Feb, [facility] [address], [place] [address] Feb, [facility] [address], [place] [address] 15 Feb, [address] [facility] [address] [id number], [place] [address] 14 Feb, [address] [facility] [address] [id number], [place] [address] 26 Jan, [address] [facility] [id number] [place] [address] 25 Jan, 2013 [facility] [address] [id number], [place] [address] 24 Jan, 2013 [facility] [id number] [place] [address] 2541 23 Jan, [address] [facility] [address], [place] [address] 20 Jan, [address] [facility] [id number] [place] [address] 19 Jan, 2013 [facility] [address], [place] [address] 18 Jan, 2013 IMMUNIZATIONS No Known Immunizations SOCIAL HISTORY Never Assessed REASON FOR VISIT Est. Care-Patient Here to [facility] care, was referred by Dr. Carrasco. Patient states she started getting sick 5:30am Tuesday, states she has gotten worse since then and couldn't wait to get in. Bernadine RN, SEBASTIEN Dr. Stephen- Along with and [facility] and several others. Done Bernadine DODSON PLAN OF CARE Activity Details Follow Up 2 Weeks Reason:establish care VITAL SIGNS Height 53.5 in 2017-12-05 Weight 167.3 lbs 2017-12-05 Temperature 98.8 degrees Fahrenheit 2017-12-05 Heart Rate 108 bpm 2017-12-05 Respiratory Rate 18 2017-12-05 Oximetry w/ oxygen @ 2L:99 % 2017-12-05 BMI 41.09 kg/m2 2017-12-05 Blood pressure systolic 118 mmHg 2017-12-05 Blood pressure diastolic 78 mmHg 2017-12-05 MEDICATIONS Medication Instructions Dosage Frequency Start Date End Date Duration Status Potassium Chloride ER 10 MEQ Orally Twice a day 1 tablet with food 12h Feb, 30 days Active Geodon 80 MG Orally Once a day 1 capsule with food 24h Active Fish Oil 1200 MG Orally Once a day 1 capsule 24h Active Geodon 40 mg Orally Once a day 1 capsule with food 24h Active Vitamin C & E Complex 6,000mg by oral route Once a day 1 tablet 24h Active Fenofibrate 145 MG Orally Once a day 1 tablet with food 24h Active NovoLog 100 UNIT/ML Subcutaneous At Meals 8 units, increasing 1 for every 50 Active Chantix Starting Month Simon 0.5 MG X 11 & 1 MG X 42 Orally as directed as directed Active Lantus 100 UNIT/ML 54 units daily Active Anoro Ellipta 62.5-25 MCG/INH Inhalation Once a day 1 puff 24h Feb, Active Nortriptyline HCl 10 mg Orally Once a day 1 capsule 24h 30 days Active Reclast 5 MG/100ML Intravenous Once per year as directed 1 dose Active Atorvastatin Calcium 80 MG Orally Once a day 1 tablet 24h 30 days Active Pyridium 200 mg Orally Three times a day 1 tablet after meals 8h 5 May, 2018 30 days Active Flomax 0.4 MG Orally Once a day 1 capsule 24h Active Cetirizine HCl 10 MG Orally Once a day 1 tablet 24h Active Flovent HFA 220 MCG/ACT Inhalation Twice a day 1 puff 12h Feb, Active Azithromycin 500 mg Orally Once a day 1 tablet 24h 3 days Active PredniSONE 10 mg Orally Once a day 4 tablets 24h 5 days Active Ambien CR 12.5 MG Orally Once a day 1 tablet at bedtime as needed 24h Active Mobic 15 mg Orally Once a day 1 tablet 24h Nov, 3 Jan, 2018 30 day(s) Active Magnesium 200 MG Orally Once a day 2 tablets with a meal 24h Active Ventolin HFA 108 (90 Base) MCG/ACT Inhalation every 6 hrs 2 puffs as needed 6h Active Metoprolol Succinate ER 100 MG Orally Once a day 1 tablet 24h 30 days Active Chantix 1 MG Orally Twice a day 1 tablet 12h 30 day(s) Active Voltaren 1 % Active Cymbalta 30 MG Orally Once a day 1 capsule 24h Active Savella 50 MG Orally Twice a day 1 tablet 12h Active Vitamin D-3 5000 UNIT Orally Once a day 1 tablet 24h Active Bumetanide 1 MG Orally Once a day 1 tablet 24h 30 days Active Myrbetriq 25 MG Orally Once a day 1 tablet 24h 30 days Active Montelukast Sodium 10 mg Orally Once a day 1 tablet 24h 30 days Active RESULTS No Results PROCEDURES Procedure Date Ordered Result Body Site [facility] VISIT ESTABLISHED PATIENT December 05, 2017 INSTRUCTIONS MEDICATIONS ADMINISTERED No Known Medications [...]
--- OUTSIDE RECORDS SUMMARY | 2018-05-10 07:40 | XMS REPORT | Clinical Summary ---
Author Author Martin Begum Organization [facility], [facility] Address [address] [facility] [address] [place] [address] Phone Care Team Providers Care Perforator Loader Name Role Phone Martin Begum Unavailable Conditions or Problems No information available. Medications No information available. Medications Administered No information available. Allergies, Adverse Reactions, Alerts No information available. Results Date Name Value Unit Range Flag Description Clinical Summary: Patient Portal Indicator PATPORTALPIN I This will be used to establish a PIN number for patients to register in the Patient Portal. Plan of Care Type Date Detail Appointment 01:00 PM [facility], [address], [address] , [place], [address], Referral Cervical spine, 4+ views Pending order Cervical spine, 4+ views Procedures No information available. Vital Signs No information available. Encounters No information available. Social History No information available.
--- OUTSIDE RECORDS SUMMARY | 2018-05-10 07:40 | XMS REPORT | CCD ---
Author Author JUANCARLOS LUZ Organization Unknown Address [address] [place], [place] [address] Care Team Providers Care Braid Maker Name Role Phone FRANK, MABEL DO Attphys FRANKCAROLYNMABEL DO Prisurg Vital Signs Unknown or Not Available. Allergies Allergy Code Allergy Type Reaction Status ULTRAM 249966 Drug allergy Active METHADONE 6813 Drug allergy Active ASPIRIN 1191 Drug allergy Active VICODIN 157097 Drug allergy Active Procedures Procedure Code Procedure Type Date ABDOMEN 2 VIEW DECUB/UPRIGHT 666877960 SNOMED CT 2014 UA ROUTINE C&S IF IND 284201957 SNOMED CT 03/27/2015 C REACTIVE PROTEIN 08196603 SNOMED CT 03/27/[address] 03/27/2015 COMPREHENSIVE METABOLIC PANEL 074255904 SNOMED CT 2014 CBC W/ AUTO DIFF (RFLX MAN DIFF IF IND) 2517350 SNOMED CT 03/27/2015 ^CBC W/ MANUAL DIFF 50099636 SNOMED CT 03/27/2015 ^UA WITH MICRO 590409301 SNOMED CT 03/27/2015 History of Immunizations Immunization Code Date pneumococcal polysaccharide PPV23 33 05/30/2010 Influenza, seasonal, injectable 141 03/30/2011 Problems Problem Code Start Date Resolved Date Status SUICIDE ATTEMPT BY DRUG INGESTION 93971874 08/18/2011 Active BIPOLAR 1 DISORDER 920166454 Active HYPERLIPIDEMIA 94790478 Active Results COMPREHENSIVE METABOLIC PANEL - Collect Date/Time: 03/27/2015 14:10 Test Name Code Test Result Test Units Test Ref Range GLUCOSE 2345-7 224 MG/DL L=70 H=100 SODIUM 2951-2 134 MEQ/L L=135 H=148 POTASSIUM 2823-3 3.7 MEQ/L L=3.5 H=5.3 CHLORIDE 2075-0 100 MEQ/L L=96 H=110 CO2 2028-9 24 MEQ/L L=22 H=29 BUN 3094-0 8 MG/DL L=8 H=22 CREATININE 2160-0 0.9 MG/DL L=0.6 H=1.6 SGOT/AST 1920-8 28 IU/L L=10 H=40 SGPT/ALT 1742-6 34 IU/L L=8 H=54 ALK PHOS 6768-6 82 IU/L L=35 H=115 TOTAL PROTEIN 2885-2 7.4 G/DL L=5.5 H=8.5 ALBUMIN 1751-7 4.4 G/DL L=3.1 H=5.4 TOTAL BILI 1975-2 0.4 MG/DL L=0.0 H=1.5 CALCIUM 12993-6 9.9 MG/DL L=8.2 H=10.6 AGE 40 yrs GFR NonAA 70 GFR AA 85 eGFR >60 N/A eGFR AA* >60 N/A LIPASE - Collect Date/Time: 03/27/2015 14:10 Test Name Code Test Result Test Units Test Ref Range LIPASE 3040-3 34 U/L L=8 H=78 CBC W/ AUTO DIFF (RFLX MAN DIFF IF IND) - Collect Date/Time: 03/27/2015 14:10 Test Name Code Test Result Test Units Test Ref Range WBC 32169-7 22.0 TH/CMM L=4.5 H=10.8 RBC 789-8 4.83 ML/CMM L=4.20 H=5.40 HGB 718-7 14.6 G/DL L=12.0 H=16.0 HCT 4544-3 43.2 % L=37.0 H=47.0 MCV 89 FL L=81 H=99 MCH 30.2 PG L=27.0 H=33.0 MCHC 33.8 G/DL L=31.0 H=36.0 RDW SD 48 FL L=36 H=50 RDW CV 14.6 % L=0.0 H=14.8 MPV 11.0 FL L=9.3 H=12.5 PLT 777-3 380 TH/CMM L=130 H=440 NRBC# 0.00 TH/CMM L=0.00 H=0.00 NRBC% 0.0 /100WBC L=0.0 H=2.0 %NEUT 75.1 % %LYMP 19.8 % %MONO 3.3 % %EOS 1.6 % %BASO 0.2 % #NEUT 16.51 TH/CMM L=2.10 H=8.20 #LYMP 4.35 TH/CMM L=0.90 H=5.20 #MONO 0.72 TH/CMM L=0.16 H=1.00 #EOS 0.36 TH/CMM L=0.00 H=0.80 #BASO 0.04 TH/CMM L=0.00 H=0.20 SEGS 76 % BANDS 3 % LYMPHS 16 % MONOS 2 % EOS 3 % MANUAL DIFF SEE BELOW N/A UA ROUTINE C&S IF IND - Collect Date/Time: 03/27/2015 14:35 Test Name Code Test Result Test Units Test Ref Range COLOR YELLOW N/A NL: YELLOW APPEARANCE CLEAR N/A NL: CLEAR SPEC GRAV <=1.005 N/A NL: 1.002 - 1.022 pH 6.5 N/A NL: 5 - 9 PROTEIN NEGATIVE N/A NL: NEGATIVE mg/dl GLUCOSE >=1000 N/A NL: NEGATIVE mg/dl KETONE NEGATIVE N/A NL: NEGATIVE mg/dl BILIRUBIN NEGATIVE N/A NL: NEGATIVE BLOOD NEGATIVE N/A NL: NEGATIVE NITRITE NEGATIVE N/A NL: NEGATIVE LEUK SCREEN NEGATIVE N/A NL: NEGATIVE MICRO INDICATED? SEE BELOW N/A WBC/HPF RARE N/A NL: NEGATIVE RBC/HPF NEGATIVE N/A NL: NEGATIVE CASTS/LPF NEGATIVE N/A NL: NEGATIVE CRYSTALS NEGATIVE N/A NL: NEGATIVE MUCOUS THRDS NEGATIVE N/A NL: NEGATIVE BACTERIA NEGATIVE N/A NL: NEGATIVE EPITH CELLS FEW SQUAMOUS N/A NL: NEGATIVE TRICHOMONAS NEGATIVE N/A NL: NEGATIVE YEAST NEGATIVE N/A NL: NEGATIVE CULT SET UP? NO N/A C REACTIVE PROTEIN - Collect Date/Time: 03/27/2015 14:10 Test Name Code Test Result Test Units Test Ref Range C REACTIVE PROTEIN 1988- 3.3 MG/DL L=0.0 H= 1.0 Active Medications Unknown or Not Available. Medications Administered During Visit Unknown or Not Available. Encounters Encounter Diagnosis Diagnosis Code Start Date Noninfective gastroenteritis and colitis, unspecified K529 2014 Social History Smoking Status Code Start Date End Date Current every day smoker [id number] Patient Decision Aids Unknown or Not Available. Discharge Instructions You were admitted to [facility] on 03/27/2015 with a principal diagnosis of Noninfective gastroenteritis and colitis, unspecified. You were discharged from [facility] on 03/27/2015. Should you have any questions prior to discharge, please contact a member of your healthcare team. If you have left the hospital and have any questions, please contact your primary care physician. Chief Complaint and Reason For Visit Chief Complaint Date of Onset ABDOMINAL PAIN Function Status Unknown or Not Available. Plan of Care Unknown or Not Available. Referral/Transition of Care Unknown or Not Available.
--- OUTSIDE RECORDS SUMMARY | 2018-05-10 07:40 | XMS REPORT ---
Author Author BREONNA Gomez Organization [facility] Address [address] [address] Care Team Providers Care Feeder Catcher Name Role Phone BREONNA Gomez Unavailable PROBLEMS Type Condition ICD9-CM Code WHE90-DW Code Onset Dates Condition Status SNOMED Code Problem Moderate persistent asthma without complication J45.40 Active 292556365 Problem Body mass index (BMI) of 40.0-44.9 in adult Z68.41 Active 707557252 Problem Morbid (severe) obesity due to excess calories E66.01 Active 74415749852679 Problem Bipolar 1 disorder F31.9 Active 411868222 Problem Lumbar back pain with radiculopathy affecting right lower extremity M54.16 Active 857131204 Problem Benign essential hypertension I10 Active 6318866 Problem Lumbar back pain with radiculopathy affecting left lower extremity M54.16 Active 696542380 Problem Polypharmacy Z79.899 Active 127606280 Problem Lichen sclerosus L90.0 Active 96579923 Problem Tobacco use disorder F17.200 Active 904957719 Problem Mixed hyperlipidemia E78.2 Active 655547248 Problem Hypertriglyceridemia E78.1 Active 843337226 Problem Osteogenesis imperfecta Q78.0 Active 47547513 Problem Osteoporosis, unspecified osteoporosis type, unspecified pathological fracture presence M81.0 Active 41218835 Problem Non-seasonal allergic rhinitis, unspecified trigger J30.89 Active 21078900 Problem Cervical spinal stenosis M48.02 Active 45457881 Problem Leukocytosis, unspecified type D72.829 Active 669842452 Problem Migraine with aura and without status migrainosus, not intractable G43.109 Active 0595548 Problem Sinus tachycardia R00.0 Active 45023314 Problem Cervicalgia M54.2 Active 03361426 Problem Other chronic pain G89.29 Active 62141287 Problem Fibromyalgia M79.7 Active 557146123 Problem Lumbago with sciatica, left side M54.42 Active 685781671 Problem Interstitial cystitis N30.10 Active 470111005 Problem AARON (nonalcoholic steatohepatitis) K75.81 Active 576968046 Problem Type 2 diabetes mellitus without complications E11.9 Active 113005192 Problem 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 of 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 Z79.4 Active 826332451 ALLERGIES Substance Reaction Event Type Date Status Vicodin nausea and vomiting Drug Allergy Oct, Active Bactrim rash Drug Allergy Oct, Active Aspirin belly pain Drug Allergy Oct, Active Tramadol Unknown Drug Allergy Oct, Active Methadone Unknown Drug Allergy Oct, Active ENCOUNTERS Encounter Location Date Diagnosis [facility] [address] [id number] [place] [address] Jan [facility] [address], [place] [address] Dec, [facility] [address], [place] [address] Dec, [facility] [address] [id number] [place] [address] Dec [facility] [address] [id number], [place] [address] Dec, [facility] [address] [id number] [place] [address] Dec Type 2 diabetes mellitus without complications E11.9 and BMI 40.0-44.9, adult Z68.41 [facility] [address] [id number] [place] [address] Nov [facility] [address] [id number] [place] [address] Nov [facility] [place] [id number] [place] [address] Nov Migraine with aura and without status [...] extremity M54.16 and BMI 40.0-44.9, adult Z68.41 [facility] [address] [id number] [place] [address] Nov, Other chronic pain G89.29 [facility] [address] [id number] [place] [address] Nov Moderate persistent asthma with exacerbation J45.41 ; Acute bronchitis due to other specified organisms J20.8 ; Tobacco use disorder F17.200 ; Benign essential hypertension I10 ; Hyperlipidemia, unspecified hyperlipidemia type E78.5 ; Fibromyalgia M79.7 ; Interstitial cystitis N30.10 ; Polypharmacy Z79.899 ; Other chronic pain G89.29 ; Non-seasonal allergic rhinitis, unspecified trigger J30.89 and BMI 40.0-44.9, adult Z68.41 [facility] [address] [id number] [address] 05 Nov, 2017 Other chronic pain G89.29 ; Fibromyalgia M79.7 ; Bipolar 1 disorder F31.9 and BMI 40.0-44.9, adult Z68.41 [facility] [address] [id number] [place] [address] Oct, Other chronic pain G89.29 [facility] [address] [id number] [address] 15 Oct, 2017 Type 2 diabetes mellitus without complications E11.9 and Other chronic pain G89.29 [facility] [address] [id number] [place] [address] 14 Oct, 2017 Type 2 diabetes mellitus without complications E11.9 ; 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 of insulin Z79.4 ; Obesity, [...] type E78.5 and BMI 40.0-44.9, adult Z68.41 [facility] [id number] [place] [address] Aug, [facility] [id number] [place] [address] Aug, [facility] [id number] [place] [address] September, [facility] [id number] [place] [address] September, [facility] [id number] [place] [address] Aug, [facility] [id number] [place] [address] Aug, [facility] [address], [place] [address] Jul, [facility] [address] [id number], [place] [address] Jul, [facility] [address], [place] [address] Jun, [facility] [id number] [place] [address] Jun, [facility] [address] Jun, [facility] [id number] [place] [address] Jun, [facility] [address] [id number] [place] [address] Jun, [facility] [place] [facility] [address] [id number] [place] [address] Jun, [facility] [address] [id number] [place] [address] May, [facility] [place] [facility] [address] [id number] [place] [address] May, [facility] [address] [id number] [place] [address] May, [facility] [address] [id number] [place] [address] May, [facility] [address] [id number] [place] [address] May, [facility] [address] [id number] [place] [address] May, [facility] [address] [id number] [place] [address] May, [facility] [address] [id number] [place] [address] May, [facility] [address] [id number], [place] [address] Apr, [facility] [place] [facility] [address] [id number] [place] [address] Apr, [facility] [place] [facility] [address] [id number] [place] [address] Apr, [facility] [place] [facility] [address] [id number] [place] [address] Apr, [facility] [place] [facility] [address] [id number] [place] [address] Apr, [facility] [place] [facility] [address] [id number] [place] [address] 27 Mar, 2013 [facility] [address] [id number] [place] [address] Mar, [facility] [place] [facility] [address] [id number] [place] [address] Mar, [facility] [place] [facility] [address] [id number] [place] [address] Mar, [facility] [place] [facility] [address] [id number] [place] [address] Mar, [facility] [place] [facility] [address] [id number] [place] [address] Mar, [facility] [place] [facility] [address] [id number] [place] [address] Mar, [facility] [place] [facility] [address] [id number] [place] [address] Mar, [facility] [place] [facility] [address] [id number] [place] [address] 14 Mar, 2013 [facility] [place] [facility] [address] [id number] [place] [address] 14 Mar, 2013 [facility] [place] [facility] [address] [id number] [place] [address] Mar, [facility] [place] [facility] [address] [id number] [place] [address] Mar, [facility] [place] [facility] [address] [id number] [place] [address] 07 Mar, 2013 [facility] [place] [facility] [address] [id number] [place] [address] 07 Mar, 2013 [facility] [place] [facility] [address] [id number] [place] [address] 06 Mar, 2013 [facility] [place] [facility] [address] [id number] [place] [address] Mar, [facility] [place] [facility] [address] [id number] [place] [address] Mar, [facility] [place] [facility] [address] [id number] [place] [address] Mar, [facility] [place] [facility] [address] [id number] [place] [address] Feb, [facility] [place] [facility] [address] [id number] [place] [address] Feb, [facility] [place] [facility] [address] [id number] [place] [address] Feb, [facility] [place] [facility] [address] [id number] [place] [address] Feb, [facility] [place] [facility] [address] [id number] [place] [address] Feb, [facility] [place] [facility] [address] [id number], [place] [address] Feb, [facility] [place] [facility] [address] [id number] [place] [address] Feb, [facility] [place] [facility] [address] [id number], [place] [address] Feb, [facility] [place] [facility] [address] [id number], [place] [address] Feb, [facility] [place] [facility] [address] [id number], [place] [address] 15 Feb, 2013 [facility] [place] [facility] [address] [id number] [place] [address] 15 Feb, 2013 [facility] [place] [facility] [address] [id number], [place] [address] 14 Feb, 2013 [facility] [place] [facility] [address] [id number] [place] [address] 26 Jan, 2013 [facility] [place] [facility] [address] [id number], [place] [address] Jan, [facility] [address] [id number], [place] [address] Jan, [facility] [address] [id number], [place] [address] Jan, [facility] [address], [place] [address] Jan, [facility] [address], [place] [address] Jan, [address], [place] [address] Jan, IMMUNIZATIONS No Known Immunizations SOCIAL HISTORY Never Assessed REASON FOR VISIT Establish Care-BGreen,NEGOTIATIONS DIRECTOR, PHQ2, Needs establish with a provider. PLAN OF CARE Activity Details Follow Up 3 months Reason:as indicated by lab VITAL SIGNS Height 53.5 in 2017-11-10 Weight 169.0 lbs 2017-11-10 Temperature 98.8 degrees Fahrenheit 2017-11-10 Heart Rate 92 bpm 2017-11-10 Respiratory Rate 18 2017-11-10 BMI 41.51 kg/m2 2017-11-10 Blood pressure systolic 138 mmHg 2017-11-10 Blood pressure diastolic 72 mmHg 2017-11-10 MEDICATIONS Medication Instructions Dosage Frequency Start Date End Date Duration Status Geodon 40 mg Orally Once a day 1 capsule with food 24h Active Vitamin C & E Complex 6,000mg by oral route Once a day 1 tablet 24h Active Baclofen 10 mg 1 tablet by Oral route 3 times per day PRN muscle spasm Mar, Active Anoro Ellipta 62.5-25 MCG/INH Inhalation Once a day 1 puff 24h Feb, 30 days Active Lantus 100 UNIT/ML 54 units daily Active Ambien CR 12.5 MG Orally Once a day 1 tablet at bedtime as needed 24h Active Reclast 5 MG/100ML Intravenous Once per year as directed 1 dose Active Compazine 10 mg 1 tablet by Oral route every 6 hours PRN (not to exceed 40 mg/day) Feb, Active Flomax 0.4 MG Orally Once a day 1 capsule 24h Active Potassium Chloride ER 10 MEQ Orally Twice a day 1 tablet with food 12h Feb, 30 days Active Myrbetriq 25 MG Orally Once a day 1 tablet 24h Active Metoprolol Succinate ER 100 MG Orally Once a day 1 tablet 24h Active Oxycodone HCl 10 mg Orally 3 times a day 1 tablet as needed 8h Active Voltaren 1 % Active Cetirizine HCl 10 MG Orally Once a day 1 tablet 24h Active Topiramate 25 MG Orally Twice a day 1 tablet 12h Active Vitamin D-3 5000 UNIT Orally Once a day 1 tablet 24h Active Flovent HFA 220 MCG/ACT Inhalation Twice a day 1 puff 12h Feb, 30 days Active Geodon 80 MG Orally Once a day 1 capsule with food 24h Active Robaxin-750 750 mg take 1 tablet (750 mg) by oral route every 4 hours May, Active Fish Oil 1200 MG Orally Once a day 1 capsule 24h Active Atorvastatin Calcium 80 MG Orally Once a day 1 tablet 24h Active Savella 50 MG Orally Twice a day 1 tablet 12h Active Bumetanide 1 MG Orally Once a day 1 tablet 24h 30 days Active NovoLog 100 UNIT/ML Subcutaneous At Meals 8 units, increasing 1 for every 50 Active Latuda 80 mg take 1 tablet (80 mg) by oral route once daily with food (at least 350 calories) May, Active Ventolin HFA 108 (90 Base) MCG/ACT Inhalation every 6 hrs 2 puffs as needed 6h Active Magnesium 200 MG Orally Once a day 2 tablets with a meal 24h Active Nortriptyline HCl 10 mg Orally Once a day 1 capsule 24h 30 days Active Pyridium 200 MG Orally Three times a day 1 tablet after meals 8h Active Montelukast Sodium 10 mg Orally Once a day 1 tablet 24h 30 days Active Nexium 40 mg 1 capsule by Oral route 1 time per day Mar, Active Fenofibrate 145 MG Orally Once a day 1 tablet with food 24h Active Cymbalta 30 MG Orally Once a day 1 capsule 24h Active RESULTS No Results PROCEDURES No Known [...]
--- OUTSIDE RECORDS SUMMARY | 2018-05-10 07:40 | XMS REPORT | Clinical Summary ---
Author Author Martin Begum [facility], [facility] Address 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 level 772810585 (SNOMED CT) Active Hilary Jones Displacement of cervical intervertebral disc Cervical spine stenosis 16103739 (SNOMED CT) Active Hilary Jones Spinal stenosis in cervical region Numbness and tingling sensation of skin 735174737219 (SNOMED CT) Active Hilary Jones Numbness and tingling sensation of skin Cervicalgia 06735460 (SNOMED CT) Active Hilary Jones Neck pain Medications Medication Instructions Start Date Stop Date Generic Name [facility] Provider ZOLPIDEM TARTRATE ER 12.5 MG CR-TABS ZOLPIDEM TARTRATE 10922556884 Dapamandeepney Estrada LANTUS SOLOSTAR 100 UNIT/ML SOPN INSULIN GLARGINE 44504341457 Daphiney Estrada FLOVENT HFA 220 MCG/ACT AERO FLUTICASONE PROPIONATE HFA 92652451410 Daphiney Estrada ANORO ELLIPTA 62.5-25 MCG/INH AEPB UMECLIDINIUM-VILANTEROL 83243456795 Daphikhurram Estrada BUMETANIDE 1 MG TABS BUMETANIDE 18059569736 Daphiney Estrada POTASSIUM CHLORIDE ER 10 MEQ CR-TABS POTASSIUM CHLORIDE 37606351070 Daphiney Estrada MYRBETRIQ 25 MG [id number] MIRABEGRON 27436566025 [facility] ZIPRASIDONE HCL 40 MG CAPS ZIPRASIDONE HCL 67013196877 Dapbrittanie Beckervedra ZIPRASIDONE HCL 80 MG CAPS ZIPRASIDONE HCL 19254466282 [facility] FENOFIBRATE 145 MG TABS FENOFIBRATE 07811719965 [facility] METOPROLOL SUCCINATE ER 100 MG [id number] METOPROLOL SUCCINATE 30620647052 Berry [facility] NORTRIPTYLINE HCL 10 MG CAPS NORTRIPTYLINE HCL 93600695991 Berry [facility] TAMSULOSIN HCL 0.4 MG CAPS TAMSULOSIN HCL 36137890394 [facility] TOPIRAMATE 25 MG TABS TOPIRAMATE 79802515485 Berry [facility] ATORVASTATIN CALCIUM 80 MG TABS ATORVASTATIN CALCIUM 84876220059 [facility] DULOXETINE HCL 30 MG CPEP DULOXETINE HCL 39224214240 [facility] Medications Administered No information available. Allergies, Adverse Reactions, Alerts Allergy Name Reaction Description Start Date Severity Status Provider BACTRIM Critical Active Daphiney Estrada ULTRAM Critical Active Daphiney Estrada ASPIRIN Critical Active Daphiney Estrada Results Date Name Value Unit Range Flag Description Office Visit: New Cervical Stenosis w/ Herniation, no help with injections,... SMOK ADVICE yes Smoking cessation education (procedure) DIET TECHNOLOGIST DEVELOPMENT yes Dietary management education, guidance , and counseling (procedure) SMOK STATUS current every day smoker Tobacco smoking status SDIS CARD RSK GRP No cardiac risk group XRAY HX No xray history XRAY TYPE MRI xray, type RADIOLOGYRES X-rays as well as MRI and MR report were reviewed today. radiology results, general Clinical Summary: Patient Portal Indicator PATPORTALPIN I This will be used to establish a PIN number for patients to register in the Patient Portal. Plan of Care No information available. Procedures Code Procedure Name Date Entry Date REF SEND LETTER TO REF [id number] SNOMED-CT: 615905686 Hx of Pneumovax Given CPT-G8730 Pain assessment documented as positive and f/u plan is documented CPT-1130F Back pain and function assessed CPT-2040F PE on initial visit for low back pain performed CPT-4248F counseled during the initial visit for back pain against bed rest > 4 days CPT-88209 Cervical spine, 4+ views CPT-G8730 Pain assessment documented as positive and f/u plan is documented SCT-[id number] SNOMED-CT: 905595984 Hx of Pneumovax Given SCT-226369240 SNOMED-CT: 264781953 Hx of Pneumovax Given Vital Signs Date Name Value Unit Description BMI (Body Mass Index) 29.23 kg/m2 Body Mass Index [Ratio] BP Diastolic 74 mm[Hg] blood pressure, diastolic BP Systolic 121 mm[Hg] blood pressure, systolic Heart Rate 86 /min pulse rate E&M Height 63 [in_us] height E&M Weight Measured 165 [lb_av] weight E&M Encounters Code Encounter Date Provider Facility CPT-55369 68772- New Level III ERMA Domingo [facility] [place] Social History Concept Description Observation Name Observation Value Units Start Date Alcohol use ETOH USE No Current every day smoker SMOK STATUS current every day smoker Tobacco use and exposure SMOK ADVICE yes
--- OUTSIDE RECORDS SUMMARY | 2018-05-10 07:40 | XMS REPORT | Clinical Summary ---
Author Author Martin Begum [facility], [facility] Address [address] [place] [address] Phone Care Team Providers Care Daycare Worker Name Role Phone Martin Begum Unavailable Conditions or Problems Problem Name Problem Code Onset Date Status Entry Date Provider Comment Standard Description Annotate Other cervical disc displacement at C6-C7 level 924736177 (SNOMED CT) Active Hilary Jones Displacement of cervical intervertebral disc Cervical spine stenosis 50349872 (SNOMED CT) Active Hilary Jones Spinal stenosis in cervical region Numbness and tingling sensation of skin 114898722831 (SNOMED CT) Active Hilary Jones Numbness and tingling sensation of skin Cervicalgia 66252960 (SNOMED CT) Active Hilary Jones Neck pain Medications Medication Instructions Start Date Stop Date Generic Name [facility] Provider ZOLPIDEM TARTRATE ER 12.5 MG CR-TABS ZOLPIDEM TARTRATE 86273524531 Dapamandeepney Estrada LANTUS SOLOSTAR 100 UNIT/ML SOPN INSULIN GLARGINE 42639046030 Daphiney Estrada FLOVENT HFA 220 MCG/ACT AERO FLUTICASONE PROPIONATE HFA 13724345196 Daphiney Estrada ANORO ELLIPTA 62.5-25 MCG/INH AEPB UMECLIDINIUM-VILANTEROL 50742956149 Daphikhurram Estrada BUMETANIDE 1 MG TABS BUMETANIDE 73195265109 Daphiney Estrada POTASSIUM CHLORIDE ER 10 MEQ CR-TABS POTASSIUM CHLORIDE 70006987831 Daphiney Estrada MYRBETRIQ 25 MG [id number] MIRABEGRON 76800510770 [facility] ZIPRASIDONE HCL 40 MG CAPS ZIPRASIDONE HCL 89849360284 Dapbrittanie Beckervedra ZIPRASIDONE HCL 80 MG CAPS ZIPRASIDONE HCL 56754776610 [facility] FENOFIBRATE 145 MG TABS FENOFIBRATE 09904628616 [facility] METOPROLOL SUCCINATE ER 100 MG [id number] METOPROLOL SUCCINATE 81089863994 [facility] NORTRIPTYLINE HCL 10 MG CAPS NORTRIPTYLINE HCL 32964782926 [facility] TAMSULOSIN HCL 0.4 MG CAPS TAMSULOSIN HCL 50919403411 [facility] TOPIRAMATE 25 MG TABS TOPIRAMATE 96415162204 [facility] ATORVASTATIN CALCIUM 80 MG TABS ATORVASTATIN CALCIUM 29126032769 [facility] DULOXETINE HCL 30 MG CPEP DULOXETINE HCL 23252388787 [facility] Medications Administered No information available. Allergies, Adverse Reactions, Alerts Allergy Name Reaction Description Start Date Severity Status Provider BACTRIM Critical Active Daphiney Estrada ULTRAM Critical Active Daphiney Estrada ASPIRIN Critical Active Daphiney Estrada Results Date Name Value Unit Range Flag Description Office Visit: New Cervical Stenosis w/ Herniation, no help with injections,... SMOK ADVICE yes Smoking cessation education (procedure) DIET OPERATIONS STAFF SPECIALIST SECURITY yes Dietary management education, guidance , and counseling (procedure) SMOK STATUS current every day smoker Tobacco smoking status NDIS CARD RSK GRP No cardiac risk group [...] Entry Date REF SEND LETTER TO REF [id number] SNOMED-CT: 597021563 Hx of Pneumovax Given CPT-G8730 Pain assessment documented as positive and f/u plan is documented CPT-1130F Back pain and function assessed CPT-2040F PE on initial visit for low back pain performed CPT-4248F counseled during the initial visit for back pain against bed rest > 4 days CPT-39274 Cervical spine, 4+ views CPT-G8730 Pain assessment documented as positive and f/u plan is documented SCT-[id number] SNOMED-CT: 215006917 Hx of Pneumovax Given SCT-180815943 SNOMED-CT: 167354684 Hx of Pneumovax Given Vital Signs Date Name Value Unit Description BMI (Body Mass Index) 29.23 kg/m2 Body Mass Index [Ratio] BP Diastolic 74 mm[Hg] blood pressure, diastolic BP Systolic 121 mm[Hg] blood pressure, systolic Heart Rate 86 /min pulse rate E&M Height 63 [in_us] height E&M Weight Measured 165 [lb_av] weight E&M Encounters Code Encounter Date Provider Facility CPT-14544 93859- New Level III ERMA Domingo [facility] [place] Social History Concept Description Observation Name Observation Value Units Start Date Alcohol use ETOH USE No Current every day smoker SMOK STATUS current every day smoker Tobacco use and exposure SMOK ADVICE yes
--- OUTSIDE RECORDS SUMMARY | 2018-05-10 07:41 | XMS REPORT | CCD ---
Author Author JUANCARLOS LUZ Organization Unknown Address [address] [place] [address] Care Team Providers Care Door To Door Salesman Name Role Phone [facility], ELIZABETH DO Attphys [facility], ELIZABETH DO Pr[facility] Allergies Allergy Code Allergy Type Reaction Status ULTRAM 267889 Drug allergy Active METHADONE 6813 Drug allergy Active ASPIRIN 1191 Drug allergy Active VICODIN 992498 Drug allergy Active Active Medications Unknown or Not Available. Problems Problem Code Start Date Resolved Date Status SUICIDE ATTEMPT BY DRUG INGESTION 48730106 08/18/2011 Active BIPOLAR 1 DISORDER 564687725 Active HYPERLIPIDEMIA 83358865 Active Procedures Unknown or Not Available. Results Unknown or Not Available. Encounters Encounter Diagnosis Diagnosis Code Start Date Elevated white blood cell count, unspecified W15383 03/08/2016 Function Status Unknown or Not Available. History of Immunizations Immunization Code Date pneumococcal polysaccharide PPV23 33 05/30/2010 pneumococcal polysaccharide PPV23 33 04/11/2014 Tdap 115 06/06/2015 Influenza, seasonal, injectable 141 03/30/2011 Influenza, seasonal, injectable 141 03/05/2012 Influenza, seasonal, injectable 141 03/18/2016 influenza, injectable, quadrivalent, preservative free 150 2012 Social History Smoking Status Code Start Date End Date Current every day smoker 447476139 Vital Signs Unknown or Not Available. Function Status Unknown or Not Available. Goals Unknown or Not Available. ASSESSMENTS Unknown or Not Available. Health Concerns Section Unknown or Not Available.
--- OUTSIDE RECORDS SUMMARY | 2018-05-10 07:41 | XMS REPORT | CCD ---
Author Author JUANCARLOS LUZ Organization Unknown Address [address] [address] [place], [place] [id number] Care Team Providers Care Chemical Operations Specialist Name Role Phone HANDSHY ER, ELZA LAWSON Attphys HANDSHY ER, ELZA LAWSON Prisurg Vital Signs Unknown or Not Available. Allergies Allergy Code Allergy Type Reaction Status ULTRAM 884331 Drug allergy Active METHADONE 6813 Drug allergy Active ASPIRIN 1191 Drug allergy Active VICODIN 773994 Drug allergy Active Procedures Unknown or Not Available. History of Immunizations Immunization Code Date pneumococcal polysaccharide PPV23 33 05/30/2010 Influenza, seasonal, injectable 141 03/30/2011 Problems Problem Code Start Date Resolved Date Status SUICIDE ATTEMPT BY DRUG INGESTION 16074135 08/18/2011 Active BIPOLAR 1 DISORDER 641024801 Active HYPERLIPIDEMIA 01112795 Active Results Unknown or Not Available. Active Medications Unknown or Not Available. Medications Administered During Visit Unknown or Not Available. Encounters Encounter Diagnosis Diagnosis Code Start Date Procedure and treatment not carried out due to patient leaving prior to being seen by health care provider [id number] 09/13/2015 Social History Smoking Status Code Start Date End Date Current every day smoker [id number] Patient Decision Aids Unknown or Not Available. Discharge Instructions You were admitted to [facility] on 09/13/2015 18:46 with a principal diagnosis of Procedure and treatment not carried out due to patient leaving prior to be You were discharged from [facility] on 09/13/2015 19:49 Should you have any questions prior to discharge, please contact a member of your healthcare team. If you have left the hospital and have any questions, please contact your primary care physician. Chief Complaint and Reason For Visit Chief Complaint Date of Onset ELBOW INJURY Function Status Unknown or Not Available. Referral/Transition of Care Unknown or Not Available.
--- OUTSIDE RECORDS SUMMARY | 2018-05-10 07:41 | XMS REPORT | CCD ---
Author Author YULIYA HAYES Organization Unknown Address [address] [place] [address] Care Team Providers Care Car Mover Name Role Phone FORREST ER, ELIZABETH DO Attphys FORREST ER, ELIZABETH DO Prisurg Allergies Allergy Code Allergy Type Reaction Status ULTRAM 986053 Drug allergy Active METHADONE 6813 Drug allergy Active ASPIRIN 1191 Drug allergy Active VICODIN 546979 Drug allergy Active Active Medications Unknown or Not Available. Problems Problem Code Start Date Resolved Date Status SUICIDE ATTEMPT BY DRUG INGESTION 85009544 08/18/2011 Active BIPOLAR 1 DISORDER 453551988 Active HYPERLIPIDEMIA 43826802 Active Procedures Unknown or Not Available. Results Unknown or Not Available. Encounters Encounter Diagnosis Diagnosis Code Start Date Elevated white blood cell count, unspecified A50082 03/08/2016 Function Status Unknown or Not Available. History of Immunizations Immunization Code Date pneumococcal polysaccharide PPV23 33 05/30/2010 pneumococcal polysaccharide PPV23 33 04/11/2014 Tdap 115 06/06/2015 Influenza, seasonal, injectable 141 03/30/2011 Influenza, seasonal, injectable 141 03/05/2012 Influenza, seasonal, injectable 141 03/18/2016 influenza, injectable, quadrivalent, preservative free 150 2012 Social History Smoking Status Code Start Date End Date Current every day smoker 760671440 Vital Signs Unknown or Not Available. Function Status Unknown or Not Available. Goals Unknown or Not Available. ASSESSMENTS Unknown or Not Available. Health Concerns Section Unknown or Not Available.
--- OUTSIDE RECORDS SUMMARY | 2018-05-10 07:41 | XMS REPORT | CCD ---
Author Author JUANCARLOS LUZ Organization Unknown Address [address] [place] [address] Care Team Providers Care Splicing Supervisor Name Role Phone FRANK, MABEL DO Attphys FRANK, MABEL DO Prisurg Allergies Allergy Code Allergy Type Reaction Status ULTRAM 833874 Drug allergy Active METHADONE 6813 Drug allergy Active ASPIRIN 1191 Drug allergy Active VICODIN 917528 Drug allergy Active Active Medications Unknown or Not Available. Problems Problem Code Start Date Resolved Date Status SUICIDE ATTEMPT BY DRUG INGESTION 89788393 08/18/2011 Active BIPOLAR 1 DISORDER 788488880 Active HYPERLIPIDEMIA 03248411 Active Procedures Unknown or Not Available. Results Unknown or Not Available. Encounters Encounter Diagnosis Diagnosis Code Start Date Low back pain M545 04/30/2016 Function Status Unknown or Not Available. History of Immunizations Immunization Code Date pneumococcal polysaccharide PPV23 33 05/30/2010 pneumococcal polysaccharide PPV23 33 04/11/2014 Tdap 115 06/06/2015 Influenza, seasonal, injectable 141 03/30/2011 Influenza, seasonal, injectable 141 03/05/2012 Influenza, seasonal, injectable 141 03/18/2016 influenza, injectable, quadrivalent, preservative free 150 2012 Social History Smoking Status Code Start Date End Date Current every day smoker 265044573 Vital Signs Unknown or Not Available. Function Status Unknown or Not Available. Goals Unknown or Not Available. ASSESSMENTS Unknown or Not Available. Health Concerns Section Unknown or Not Available.
--- OUTSIDE RECORDS SUMMARY | 2018-05-10 07:41 | XMS REPORT | CCD ---
Author Author SOTO BEE Organization Unknown Address [address] [facility] [address] [place], [place] [id number] Care Team Providers Care R D Internship Name Role Phone HANDSHY ER, ELZA LAWSON Attphys HANDSHY ER, ELZA LAWSON Prisurg Vital Signs Unknown or Not Available. Allergies Allergy Code Allergy Type Reaction Status ULTRAM 269559 Drug allergy Active METHADONE 6813 Drug allergy Active ASPIRIN 1191 Drug allergy Active VICODIN 854706 Drug allergy Active Procedures Procedure Code Procedure Type Date FOOT [address] 06/01/2015 History of Immunizations Immunization Code Date pneumococcal polysaccharide PPV23 33 05/30/2010 Influenza, seasonal, injectable 141 03/30/2011 Problems Problem Code Start Date Resolved Date Status SUICIDE ATTEMPT BY DRUG INGESTION 66955769 08/18/2011 Active BIPOLAR 1 DISORDER 985949511 Active HYPERLIPIDEMIA 45110067 Active Results Unknown or Not Available. Active Medications Unknown or Not Available. Medications Administered During Visit Unknown or Not Available. Encounters Encounter Diagnosis Diagnosis Code Start Date Contusion of right foot, initial encounter [id number] 06/01/2015 Social History Smoking Status Code Start Date End Date Current every day smoker 376674948 Patient Decision Aids Unknown or Not Available. Discharge Instructions You were admitted to [facility] on 06/01/2015 with a principal diagnosis of Contusion of right foot, initial encounter. You were discharged from [facility] on 06/01/2015. Should you have any questions prior to discharge, please contact a member of your healthcare team. If you have left the hospital and have any questions, please contact your primary care physician. Chief Complaint and Reason For Visit Chief Complaint Date of Onset FOOT INJURY Function Status Unknown or Not Available. Plan of Care Unknown or Not Available. Referral/Transition of Care Unknown or Not Available.
--- OUTSIDE RECORDS SUMMARY | 2018-05-10 07:42 | XMS REPORT | Continuity of Care Document ---
Author Author [facility] Address Unknown Phone Unavailable Allergies Active Description Code Type Severity Reaction Onset Reported/Identified Relationship to Patient Clinical Status Yes ALTRAM Drug Allergy N/A N/A Yes ASPIRIN 1191 Drug Allergy N/A N/A Yes BACTRIM [id number] Drug Allergy N/A N/A Yes METHADONE HCL [id number] Drug Allergy N/A N/A Yes ULTRAM [id number] Drug Allergy N/A N/A Yes VICODIN [id number] Drug Allergy N/A N/A Yes ASPIRIN [id number] DRUG N/A N/A Yes BACTRIM [id number] BRANDNAME N/A N/A Yes METHADONE [id number] DRUG N/A N/A Yes ULTRAM 15824129 BRANDNAME N/A N/A Yes VICODIN [id number] BRANDNAME N/A N/A Yes aspirin Drug Allergy N/A N/A 02/14/2013 Yes Methadone Drug Allergy N/A N/A 02/14/2013 Yes tramadol Drug Allergy N/A N/A 02/14/2013 Yes aspirin [id number] Drug Allergy Unknown N/A 12/26/2014 Yes methadone [id number] Drug Allergy Unknown N/A 12/26/2014 Yes tramadol [id number] Drug Allergy Unknown N/A 12/26/2014 Yes NSAIDS (Non-Steroidal Anti-Inflamma [id number] Drug Allergy Unknown N/A 03/2018 Medications Medication Packaging Start Date Stop Date Route Dosage Sig VITAMIN D3 ORAL 07/05/2017 ORAL once each day TOPIRAMATE ORAL 07/05/2017 12/12/2017 ORAL 6060 twice daily SAVELLA ORAL 07/05/2017 ORAL 6060 twice daily RECLAST Intravenous 07/05/2017 Intravenous 142613 annually POTASSIUM CHLORIDE ER ORAL 2017 ORAL 3030 daily OXYCONTIN ORAL 07/05/2017 ORAL 6060 three times each day NORTRIPTYLINE HCL ORAL 07/05/2017 ORAL 3030 once each day MYRBETRIQ ORAL 07/05/2017 ORAL 3030 daily MONTELUKAST SODIUM ORAL 07/05/2017 ORAL 3030 daily METOPROLOL TARTRATE ORAL 2017 ORAL 6060 daily MAGNESIUM GLYCINATE Oral 2017 Oral once each day LATANOPROST Ophthalmic 07/05/2017 Ophthalmic 2.52.5 daily in the evening LANTUS Subcutaneous 07/05/2017 08/22/2017 Subcutaneous [id number] in the morning GLIMEPIRIDE ORAL 07/05/2017 08/22/2017 ORAL 3030 daily GEODON ORAL 07/05/2017 02/13/2018 ORAL 6060 at bed-time FLOVENT HFA Inhalation 07/05/2017 Inhalation 1313 once each day FENOFIBRATE ORAL 07/05/2017 ORAL 3030 DAILY CETIRIZINE HCL ORAL 07/05/2017 ORAL 3030 DAILY BUMETANIDE ORAL 07/05/2017 ORAL 3030 daily ATORVASTATIN CALCIUM ORAL 2017 ORAL 3030 daily PYRIDIUM ORAL 08/08/2017 08/12/2017 ORAL 3030 three times daily PYRIDIUM ORAL 08/22/2017 08/25/2017 ORAL 99 3 times a day NOVOLOG Subcutaneous 08/22/2017 Subcutaneous 88 LANTUS Subcutaneous 08/22/2017 Subcutaneous [id number] in the morning FLOMAX ORAL 08/23/2017 02/13/2018 ORAL 3030 at bedtime FLOMAX ORAL 09/06/2017 10/06/2017 ORAL 6060 at bedtime CYMBALTA ORAL 12/12/2017 ORAL CHANTIX ORAL 12/12/2017 ORAL AMBIEN CR ORAL 12/12/2017 ORAL VOLTAREN Transdermal 01/05/2018 02/13/2018 Transdermal four times daily VENTOLIN HFA Inhalation 01/05/2018 Inhalation [id number] TRIAMCINOLONE ACETONIDE External 01/15/2018 External three times daily SUMATRIPTAN SUCCINATE ORAL 2017 ORAL 99 PYRIDIUM ORAL 01/05/2018 01/08/2018 ORAL 99 3 times a day NORTRIPTYLINE HCL ORAL 01/05/2018 02/13/2018 ORAL 3030 at bedtime MYRBETRIQ ORAL 01/05/2018 ORAL 3030 daily FISH OIL ORAL 01/05/2018 ORAL three times daily BETHANECHOL CHLORIDE ORAL 2017 ORAL 3030 twice daily BETHANECHOL CHLORIDE ORAL 2017 ORAL 3030 twice daily NORTRIPTYLINE HCL ORAL 02/13/2018 ORAL daily BETHANECHOL CHLORIDE ORAL 2017 ORAL 3030 twice daily Problems Date Dx Coded Attending Type Code Diagnosis Diagnosed By 02/14/2013 JEREMY WEATHERS MD 278.00 OBESITY 02/14/2013 JEREMY WEATHERS MD 288.60 LEUKOCYTOSIS 02/14/2013 JEREMY WEATHERS MD 300.00 ANXIETY UNSPEC 02/14/2013 JEREMY WEATHERS MD 338.29 OTHER CHRONIC PAIN 02/14/2013 JEREMY WEATHERS MD 787.01 nausea with vomiting 02/14/2013 PRAKASH KATIE PAGANA K 278.00 OBESITY 02/14/2013 KATIE PRAKASH DOA K 288.60 LEUKOCYTOSIS 02/14/2013 KATIE PRAKASH DOA K 300.00 ANXIETY UNSPEC 02/14/2013 PRAKASH KATIE PAGANA K 338.29 OTHER CHRONIC PAIN 02/14/2013 DENIS PRAKASH DO K 787.01 nausea with vomiting 02/14/2013 JEREMY WEATHERS MD 278.00 OBESITY 02/14/2013 JEREMY WEATHERS MD 288.60 LEUKOCYTOSIS 02/14/2013 JEREMY WEATHERS MD 300.00 ANXIETY UNSPEC 02/14/2013 JEREMY WEATHERS MD 338.29 OTHER CHRONIC PAIN 02/14/2013 JEREMY WEATHERS MD 787.01 nausea with vomiting 02/14/2013 JEREMY WEATHERS MD 278.00 OBESITY 02/14/2013 JEREMY WEATHERS MD 288.60 LEUKOCYTOSIS 02/14/2013 JEREMY WEATHERS MD 300.00 ANXIETY UNSPEC 02/14/2013 JEREMY WEATHERS MD 338.29 OTHER CHRONIC PAIN 02/14/2013 JEREMY WEATHERS MD 787.01 nausea with vomiting 02/14/2013 JUANCARLOS BOURGEOIS APRN S 278.00 OBESITY 02/14/2013 JUANCARLOS BOURGEOIS APRN S 288.60 LEUKOCYTOSIS 02/14/2013 JUANCARLOS BOURGEOIS APRN S 300.00 ANXIETY UNSPEC 02/14/2013 JUANCARLOS BOURGEOIS APRN S 338.29 OTHER CHRONIC PAIN 02/14/2013 [facility], JUANCARLOS S 787.01 nausea with vomiting 02/14/2013 JEREMY WEATHERS MD 278.00 OBESITY 02/14/2013 JEREMY WEATHERS MD 288.60 LEUKOCYTOSIS 02/14/2013 JEREMY WEATHERS MD 300.00 ANXIETY UNSPEC 02/14/2013 JEREMY WEATHERS MD 338.29 OTHER CHRONIC PAIN 02/14/2013 JEREMY WEATHERS MD 787.01 nausea with vomiting 04/04/2013 JEREMY WEATHERS MD 530.5 DYSPHAGIA 04/04/2013 JEREMY WEATHERS MD 723.1 CERVICALGIA 04/04/2013 JEREMY WEATHERS MD 724.2 lower back pain 04/04/2013 LINDA BOURGEOIS APRNNDA S 530.5 DYSPHAGIA 04/04/2013 LINDA BOURGEOIS APRNNDA S 723.1 CERVICALGIA 04/04/2013 KEYANA BOURGEOIS APRNA S 724.2 lower back pain 04/04/2013 JEREMY WEATHERS MD 530.5 DYSPHAGIA 04/04/2013 JEREMY WEATHERS MD 723.1 CERVICALGIA 04/04/2013 JEREMY WEATHERS MD 724.2 lower back pain 06/12/2013 MEL PERSAUD DO K Ot 339.12 CHRONIC TENSION TYPE HEADACHE 06/12/2013 MEL PERSAUD DO K Ot 723.1 CERVICALGIA 06/12/2013 MEL PERSAUD DO K Ot 784.0 HEADACHE 07/24/2013 JEREMY WEATHERS MD 511.0 PLEURISY 12/26/2014 JEREMY WEATHERS MD Ot 530.5 12/26/2014 JEREMY WEATHERS MD Ot 723.1 12/26/2014 JEREMY WEATHERS MD Ot 724.2 12/26/2014 JEREMY WEATHERS MD Ot 787.20 12/26/2014 JEREMY WEATHERS MD Ot 721.2 12/26/2014 JEREMY WEATHERS MD Ot 723.0 12/26/2014 JEREMY WEATHERS MD Ot 724.2 01/16/2015 STEFANO BUNN DO Ot 305.1 01/16/2015 STEFANO BUNN DO Ot 496 01/16/2015 STEFANO BUNN DO Ot 305.1 01/16/2015 STEFANO BUNN DO Ot 496 01/29/2015 NWAGWU[facility] Ot 250.00 01/29/2015 NWAGWU, [facility] Ot 272.4 01/29/2015 NWAGWU, [facility] Ot 327.23 01/29/2015 NWAGWU, [facility] Ot 401.9 01/29/2015 NWAGWU, [facility] Ot 496 02/11/2015 NWAGWU, [facility] Ot 250.00 02/11/2015 NWAGWU, [facility] Ot 272.4 02/11/2015 NWAGWU, [facility] Ot 327.23 02/11/2015 NWAGWU, [facility] Ot 401.9 02/11/2015 NWAGWU, [facility] Ot 496 12/09/2017 S R19129 Nicotine dependence, cigarettes, uncomplicated 12/09/2017 P J050 Acute obstructive laryngitis [croup] 12/09/2017 S J209 Acute bronchitis, unspecified 12/09/2017 S R05 Cough 01/12/2018 S E119 Type 2 diabetes mellitus without complications 01/12/2018 P Y73796 Epilepsy, unspecified, not intractable, without status epilepticus 01/12/2018 S R4182 Altered mental status, unspecified 02/20/2018 P G3184 Mild cognitive impairment, so stated 05/09/2018 JASIEL LAWSON, JEREMY Wright Ot 530.5 DYSKINESIA OF ESOPHAGUS 05/09/2018 JASIEL LAWSON, JEREMY Wright Ot 723.1 CERVICALGIA 05/09/2018 JASIEL LAWSON, JEREMY Wright Ot 724.2 LUMBAGO 05/09/2018 JASIEL LAWSON, JEREMY Wright Ot 787.20 DYSPHAGIA, UNSPECIFIED 05/09/2018 JASIEL LAWSON, JEREMY Wright Ot 721.2 THORACIC SPONDYLOSIS 05/09/2018 JASIEL LAWSON, JEREMY Wright Ot 723.0 CERVICAL SPINAL STENOSIS 05/09/2018 JASIEL LAWSON, JEREMY Wright Ot 724.2 LUMBAGO 05/09/2018 ONI STEFANO PAGAN Adriana Ot 305.1 TOBACCO USE DISORDER 05/09/2018 STEFANO BUNN DO Ot 496 CHR AIRWAY OBSTRUCT NEC 05/09/2018 NW[facility], [facility] Ot 250.00 DIAB DUNIA WO COMPL, TYPE II OR UNSPEC TY 05/09/2018 [facility], [facility] Ot 272.4 HYPERLIPIDEMIA NEC/NOS 05/09/2018 NWAGWU, [facility] Ot 327.23 OBSTRUCTIVE SLEEP APNEA (ADULT) (PEDIATR 05/09/2018 NWAGWU, [facility] Ot 401.9 HYPERTENSION NOS 05/09/2018 NWAGWU, [facility] Ot 496 CHR AIRWAY OBSTRUCT NEC 05/09/2018 NWAGWU, [facility] Ot 250.00 DIAB DUNIA WO COMPL, TYPE II OR UNSPEC TY 05/09/2018 NWAGWU, [facility] Ot 272.4 HYPERLIPIDEMIA NEC/NOS 05/09/2018 NWAGWU, [facility] Ot 327.23 OBSTRUCTIVE SLEEP APNEA (ADULT) (PEDIATR 05/09/2018 NWAGWU, [facility] Ot 401.9 HYPERTENSION NOS 05/09/2018 NWAGWU, [facility] Ot 496 CHR AIRWAY OBSTRUCT NEC Procedures Code Description [place] [address] ROUTINE VENIPUNCTURE 02/14/2013 41960 A1C (IN-HOUSE) 02/14/2013 49448 H PYLORI (IN-HOUSE) 02/14/2013 12909 ESR/SED RATE 02/14/2013 22575 CMP 02/14/2013 [id number] GFR CALC (RESULT ONLY) 02/14/2013 13013 LIPID PANEL 02/14/2013 80641 TSH 02/14/2013 [id number] COMPLETE BLOOD COUNT NO DIFF (CBC Result) 02/14/2013 89911 CRP 02/14/2013 32181 CPK 02/14/2013 67934 LIPASE 02/14/2013 30895 RA FACTOR 02/15/2013 ANAANA YOLI ANALYZER (SCREEN) 02/15/2013 06139 DIFFERENTIAL WBC COUNT (CBC DIFF RESULT) 02/15/2013 02443 T4 FREE 02/15/2013 37310 CELIAC DISEASE ANALYZER 02/16/2013 05615 CBC W/MANUAL DIF (order) 02/20/2013 43484 MRI SPINE (CERVICAL) W/O CONTRAST 04/04/2013 66326 MRI SPINE (THORACIC) W/O CONTRAST 04/04/2013 05022 MRI SPINE (LUMBAR) W/O CONTRAST 04/04/2013 73027 BARIUM SWALLOW XRAY MODIFIED 04/12/2013 Results Test Result Range Cortisol, Urinary Free - 04/16/16 10:28 Cortisol,F,ug/L,U <1 ug/L Undefined Cortisol,F,ug/24hr,U <3 ug/24 hr 0-50 RPR, Rfx Qn RPR/Confirm TP - 05/06/17 12:13 RPR Non Reactive Non Reactive HBsAg Screen - 05/06/17 12:40 HBsAg Screen Negative Negative Rubella Antibodies, IgG - 05/06/17 12:40 Rubella Antibodies, IgG 23.40 index Immune >0.99 CMV Abs IgG/IgM - 04/20/17 15:20 Cytomegalovirus (CMV) Ab, IgG 8.20 U/mL 0.00-0.59 Cytomegalovirus (CMV) Ab, IgM <30.0 AU/mL 0.0-29.9 HSV, IgM I/II Combination - 04/20/17 15:20 HSV, IgM I/II Combination <0.91 Ratio 0.00-0.90 Adenovirus Group Ab, Qn - 04/20/17 15:20 Adenovirus Group Ab, Qn 1:64 Neg:<1:8 CMP - 11/11/17 10:33 GLUCOSE 162 mg/dL 65-99 UREA NITROGEN (BUN) 8 mg/dL 7-25 CREATININE 0.62 mg/dL 0.50-1.10 eGFR NON-AFR. ERITREAN 112 mL/min/1.73m2 > OR=60 eGFR 130 mL/min/1.73m2 > OR=60 BUN/CREATININE RATIO NOT APPLICABLE (calc) 6-22 SODIUM 138 mmol/L 135-146 POTASSIUM 3.8 mmol/L 3.5-5.3 CHLORIDE 106 mmol/L 98-110 CARBON DIOXIDE 24 mmol/L 20-31 CALCIUM 9.4 mg/dL 8.6-10.2 PROTEIN, TOTAL 6.9 g/dL 6.1-8.1 ALBUMIN 4.2 g/dL 3.6-5.1 GLOBULIN 2.7 g/dL (calc) 1.9-3.7 ALBUMIN/GLOBULIN RATIO 1.6 (calc) 1.0-2.5 BILIRUBIN, TOTAL 0.3 mg/dL 0.2-1.2 ALKALINE PHOSPHATASE 59 U/L 33-115 AST 18 U/L 10-30 ALT 33 U/L 6-29 - PANEL (PROFILE 1) - 11/17/17 09:47 Prescribed Drug 1 Oxycodone NRG Creatinine 38.4 mg/dL > or=20.0 pH 6.30 4.5 - 9.0 Oxidant NEGATIVE mcg/mL <200 Amphetamines NEGATIVE ng/mL <500 medMATCH Amphetamines CONSISTENT NRG Benzodiazepines NEGATIVE ng/mL <100 medMATCH Benzodiazepines CONSISTENT NRG Marijuana Metabolite NEGATIVE ng/mL <20 medMATCH Marijuana Metab CONSISTENT NRG Cocaine Metabolite NEGATIVE ng/mL <150 medMATCH Cocaine Metab CONSISTENT NRG Opiates NEGATIVE ng/mL <100 medMATCH Opiates CONSISTENT NRG Oxycodone NEGATIVE ng/mL <100 medMATCH Oxycodone INCONSISTENT NRG COMMENT NRG Prescribed Drug 2 Oxycodone NRG Barbiturates NEGATIVE ng/mL <300 medMATCH Barbiturates CONSISTENT NRG Methadone Metabolite NEGATIVE ng/mL <100 medMATCH Methadone Metab CONSISTENT NRG Phencyclidine NEGATIVE ng/mL <25 medMATCH Phencyclidine CONSISTENT NRG GGT - 12/19/17 11:12 GGT 199 U/L 3-55 CULTURE, URINE - 01/02/18 15:15 CULTURE, URINE, ROUTINE SEE NOTE NRG CBC - 02/22/18 15:45 WHITE BLOOD CELL COUNT 14.1 Thousand/uL 3.8-10.8 RED BLOOD CELL COUNT 4.51 Million/uL 3.80-5.10 HEMOGLOBIN 13.6 g/dL 11.7-15.5 HEMATOCRIT 41.0 % 35.0-45.0 MCV 90.9 fL 80.0-100.0 MCH 30.2 pg 27.0-33.0 MCHC 33.2 g/dL 32.0-36.0 RDW 11.7 % 11.0-15.0 PLATELET COUNT 397 Thousand/uL 140-400 MPV 11.7 fL 7.5-12.5 ABSOLUTE NEUTROPHILS 8545 cells/uL 6934-5674 ABSOLUTE LYMPHOCYTES 4554 cells/uL 850-3900 ABSOLUTE MONOCYTES 649 cells/uL 200-950 ABSOLUTE EOSINOPHILS 282 cells/uL 15-500 ABSOLUTE BASOPHILS 71 cells/uL 0-200 NEUTROPHILS 60.6 % NRG LYMPHOCYTES 32.3 % NRG MONOCYTES 4.6 % NRG EOSINOPHILS 2.0 % NRG BASOPHILS 0.5 % NRG COMMENT(S) NRG Encounters ACCT No. Visit Date/Time Discharge Status Pt. Type Provider Facility Loc./Unit Complaint [id number] 07/24/2013 14:41:00 07/24/2013 23:59:59 CLS Outpatient JEREMY WEATHERS MD [id number] 06/19/2013 15:58:00 06/19/2013 23:59:59 CLS Outpatient JUANCARLOS BOURGEOIS APRN [id number] 04/04/2013 13:55:00 04/04/2013 23:59:59 CLS Outpatient JEREMY WEATHERS MD [id number] 02/20/2013 13:33:00 02/20/2013 23:59:59 CLS Outpatient DENIS PRAKASH DO [id number] 02/14/2013 10:31:00 02/14/2013 23:59:59 CLS Outpatient JEREMY WEATHERS MD [id number] 02/14/2013 10:31:00 02/14/2013 23:59:59 CLS Outpatient JEREMY WEATHERS MD [id number] 05/07/2017 07:07:00 Document Registration [id number] 05/08/2016 21:05:00 Document Registration [id number] 04/22/2017 21:05:00 Document Registration [id number] 01/08/2015 07:21:27 ACT Document Registration [id number] 03/23/2018 08:47:23 03/23/2018 08:47:23 DIS Outpatient [facility] [id number] 04/20/2016 11:06:00 Document Registration [id number] 04/26/2017 06:06:00 Document Registration [id number] 05/09/2018 14:14:00 05/09/2018 14:46:00 DIS Emergency LELIA LAWSON, MATT Carrizales [facility] ER EAR ACHE [id number] 01/08/2015 07:19:00 01/08/2015 23:59:59 CLS Outpatient STEFANO BUNN DO [facility] RAD COPD [id number] 01/08/2015 07:10:00 01/08/2015 23:59:59 CLS Outpatient NWAGWU[facility] CARD HTN DIABETES HYPERLIPIDEMIA DENG COPD [id number] 12/26/2014 11:26:00 12/26/2014 23:59:59 CLS Outpatient NWAGWU, [facility] CARD HTN.DIABETE,HLN, COPD [id number] 06/12/2013 15:17:00 06/12/2013 17:25:00 DIS Emergency HUNG DO, MEL K [facility] ER HEADACHE [id number] 05/11/2013 13:48:00 05/11/2013 23:59:59 CLS Outpatient JEREMY WEATHERS MD [facility] RAD MID BACK PAIN,ACUTE CHRONIC LEG,NECK PAIN,DIFF SWA [id number] 04/12/2013 10:23:00 04/12/2013 23:59:59 CLS Outpatient JEREMY WEATHERS MD [facility] RAD MID BACK PAIN,ACUTE CHRONIC LEG,NECK PAIN,DIFF SWA [id number] 05/08/2018 16:19:30 Document Registration [id number] 04/18/2018 08:27:38 Document Registration [id number] 04/13/2018 23:49:56 Document Registration [id number] 04/13/2018 23:44:52 Document Registration [id number] 03/14/2018 07:48:51 Document Registration [id number] 02/22/2018 14:11:56 Document Registration [id number] 01/29/2018 12:37:38 Document Registration [id number] 01/22/2018 21:14:21 Document Registration [id number] 01/22/2018 17:52:13 Document Registration [id number] 01/18/2018 08:56:27 Document Registration [id number] 01/13/2018 21:44:53 Document Registration [id number] 01/05/2018 15:38:44 Document Registration [id number] 01/05/2018 15:32:00 Document Registration [id number] 12/29/2017 11:13:12 Document Registration [id number] 12/26/2017 14:48:46 Document Registration [id number] 12/23/2017 11:26:42 Document Registration [id number] 12/09/2017 14:00:40 Document Registration [id number] 12/09/2017 11:15:51 Document Registration [id number] 11/16/2017 11:46:41 Document Registration [id number] 11/02/2017 15:05:34 Document Registration [id number] 09/06/2017 11:26:29 Document Registration [id number] 08/15/2017 15:05:33 Document Registration [id number] 08/03/2017 10:29:04 Document Registration [id number] 07/18/2017 15:50:03 Document Registration [id number] 06/24/2017 11:03:36 Document Registration [id number] 06/17/2017 09:11:59 Document Registration [id number] 06/03/2017 07:48:33 Document Registration [id number] 05/18/2017 22:11:49 Document Registration [id number] 05/18/2017 21:46:29 Document Registration [id number] 04/20/2017 14:36:54 Document Registration [id number] 04/19/2017 15:39:21 Document Registration [id number] 03/24/2017 10:46:16 Document Registration [id number] 03/08/2017 15:16:20 Document Registration [id number] 02/23/2017 18:45:24 Document Registration [id number] 02/22/2017 08:59:16 Document Registration [id number] 02/16/2017 09:05:00 Document Registration [id number] 01/19/2017 10:02:24 Document Registration [id number] 10/07/2017 14:12:52 10/07/2017 23:59:59 CLS Outpatient MD Greg, Steven Nix [id number] 04/27/2017 06:06:00 Document Registration [id number] 05/07/2017 17:06:00 Document Registration [id number] 05/08/2016 21:05:00 Document Registration [id number] 04/21/2018 11:20:00 04/21/2018 23:59:59 CLS SUMMER Cerda [id number] 02/22/2018 13:20:00 Document Registration [id number] 01/02/2018 14:00:00 Document Registration [id number] 12/19/2017 10:00:00 Document Registration [id number] 11/17/2017 09:00:00 Document Registration [id number] 11/11/2017 10:20:00 Document Registration [id number] 03/30/2018 17:17:29 03/30/2018 23:59:59 CLS Outpatient Tiarra Aniket [id number] 03/24/2018 16:46:42 03/24/2018 23:59:59 CLS Outpatient John Hoskins [id number] 01/26/2018 12:02:52 01/26/2018 23:59:59 CLS Outpatient Rojas Arora-Michael [id number] 01/24/2018 12:17:06 01/24/2018 23:59:59 CLS Outpatient Tiarra Aniket [id number] 12/16/2017 11:38:09 12/16/2017 23:59:59 CLS Outpatient Tiarra Aniket [id number] 11/16/2017 11:04:27 11/16/2017 23:59:59 CLS Outpatient Mayen, Aniket [id number] 11/02/2017 14:38:20 11/02/2017 23:59:59 CLS Outpatient Symone Marie [id number] 10/27/2017 11:01:39 10/27/2017 23:59:59 CLS Outpatient Kaylynn Mendez [id number] 09/14/2017 15:27:39 09/14/2017 23:59:59 CLS Outpatient RidHeena ontiveros [id number] 09/06/2017 11:34:12 09/06/2017 23:59:59 CLS Outpatient Kaylynn Mendez [id number] 08/15/2017 15:07:19 08/15/2017 23:59:59 CLS Outpatient RidHeena ontiveros [id number] 07/18/2017 15:54:26 07/18/2017 23:59:59 CLS Outpatient RidHeena ontiveros [id number] 06/28/2017 11:32:18 06/28/2017 23:59:59 CLS Outpatient Lena El [id number] 06/24/2017 11:27:54 06/24/2017 23:59:59 CLS Outpatient Sundeep Russell [id number] 06/02/2017 16:56:53 06/02/2017 23:59:59 CLS Outpatient RiddelHeena [id number] 04/20/2017 14:58:34 04/20/2017 23:59:59 CLS Outpatient Riddel, Heena [id number] 03/22/2017 11:06:24 03/22/2017 23:59:59 CLS Outpatient Riddel, Heena [id number] 03/05/2017 10:08:46 03/05/2017 23:59:59 CLS Outpatient Lena Cahves [id number] 02/23/2017 18:28:29 02/23/2017 23:59:59 CLS Outpatient Symone Marie [id number] 02/21/2017 16:05:30 02/21/2017 23:59:59 CLS Outpatient Riddel, Heena [id number] 02/15/2017 14:57:43 02/15/2017 23:59:59 CLS Outpatient Riddel, Heena [id number] 02/02/2017 11:35:40 02/02/2017 23:59:59 CLS Outpatient Riddel, Heena [id number] 01/21/2017 16:10:23 01/21/2017 23:59:59 CLS Outpatient John Hoskins [id number] 01/07/2017 15:19:52 01/07/2017 23:59:59 CLS Outpatient Riccardo Cardoza [id number] 01/03/2017 15:00:02 01/03/2017 23:59:59 CLS Outpatient Riddel, Heena [id number] 12/15/2016 11:31:41 12/15/2016 23:59:59 CLS Outpatient Walker, Kaylynn [id number] 12/02/2016 14:58:17 12/02/2016 23:59:59 CLS Outpatient Riddel, Heena [id number] 11/23/2016 11:00:55 11/23/2016 23:59:59 CLS Outpatient Walker, Kaylynn [id number] 11/17/2016 11:29:14 11/17/2016 23:59:59 CLS Outpatient Walker, Kaylynn [id number] 11/05/2016 13:59:25 11/05/2016 23:59:59 CLS Outpatient CardozaRiccardo [id number] 11/02/2016 11:24:54 11/02/2016 23:59:59 CLS Outpatient Riddel, Heena [id number] 10/06/2016 12:39:11 10/06/2016 23:59:59 CLS Outpatient Walker, Kaylynn [id number] 09/22/2016 10:45:40 09/22/2016 23:59:59 CLS Outpatient Riddel, Heena [id number] 09/09/2016 09:46:59 09/09/2016 23:59:59 CLS Outpatient Walker, Kaylynn [id number] 08/27/2016 10:00:40 08/27/2016 23:59:59 CLS Outpatient CardozaRiccardo [id number] 08/26/2016 15:58:42 08/26/2016 23:59:59 CLS Outpatient Riddel, Heena [id number] 07/09/2016 15:27:13 07/09/2016 23:59:59 CLS Outpatient Cardoza, Riccardo [id number] 07/06/2016 11:32:12 07/06/2016 23:59:59 CLS Outpatient Riddel, Heena [id number] 06/18/2016 09:42:04 06/18/2016 23:59:59 CLS Outpatient Walker, Kaylynn [id number] 06/07/2016 11:28:11 06/07/2016 23:59:59 CLS Outpatient RussellSundeep stewart [id number] 06/04/2016 11:54:38 06/04/2016 23:59:59 CLS Outpatient Riddel, Heena [id number] 05/13/2016 16:03:32 05/13/2016 23:59:59 CLS Outpatient Riddel, Heena [id number] 05/03/2016 16:17:06 05/03/2016 23:59:59 CLS Outpatient Riddel, Heena [id number] 04/26/2016 11:20:08 04/26/2016 23:59:59 CLS Outpatient Walker, Kaylynn [id number] 04/14/2016 14:30:36 04/14/2016 23:59:59 CLS Outpatient Riddel, Heena [id number] 04/13/2016 10:18:02 04/13/2016 23:59:59 CLS Outpatient Walker, Kaylynn [id number] 03/26/2016 18:18:22 03/26/2016 23:59:59 CLS Outpatient Yesica Falcon [id number] 03/17/2016 11:29:53 03/17/2016 23:59:59 CLS Outpatient Riddel, Heena [id number] 03/05/2016 11:38:41 03/05/2016 23:59:59 CLS Outpatient Walker, Kaylynn [id number] 02/16/2016 15:20:26 02/16/2016 23:59:59 CLS Outpatient Riddel, Heena [id number] 02/14/2016 12:15:41 02/14/2016 23:59:59 CLS Outpatient Na Jones [id number] 01/16/2016 11:41:10 01/16/2016 23:59:59 CLS Outpatient Riddel, Heena [id number] 12/26/2015 10:27:20 12/26/2015 23:59:59 CLS Outpatient Riddel, Heena [id number] 12/16/2015 12:32:54 12/16/2015 23:59:59 CLS Outpatient Riddel, Heena [id number] 11/24/2015 12:20:20 11/24/2015 23:59:59 CLS Outpatient Walker, Kaylynn [id number] 07/30/2015 15:20:07 07/30/2015 23:59:59 CLS Outpatient Riddel, Heena [id number] 07/15/2015 09:36:22 07/15/2015 23:59:59 CLS Outpatient Walker, Kaylynn [id number] 07/04/2015 11:59:51 07/04/2015 23:59:59 CLS Outpatient Riddel, Heena [id number] 06/06/2015 10:36:16 06/06/2015 23:59:59 CLS Outpatient Riddel, Heena [id number] 06/06/2015 10:07:53 06/06/2015 23:59:59 CLS Outpatient Walker, Kaylynn [id number] 06/02/2015 15:58:50 06/02/2015 23:59:59 CLS Outpatient Walker, Kaylynn [id number] 05/26/2015 11:14:30 05/26/2015 23:59:59 CLS Outpatient Walker, Kaylynn [id number] 05/20/2015 17:53:41 05/20/2015 23:59:59 CLS Outpatient Walker, Kaylynn [id number] 05/08/2015 17:06:40 05/08/2015 23:59:59 CLS Outpatient Riddel, Heena [id number] 05/06/2015 12:13:36 05/06/2015 23:59:59 CLS Outpatient Walker, Kaylynn [id number] 04/29/2015 16:01:52 04/29/2015 23:59:59 CLS Outpatient Walker, Kaylynn [id number] 03/27/2015 14:16:37 03/27/2015 23:59:59 CLS Outpatient Brittni Yanez [id number] 03/21/2015 11:59:08 03/21/2015 23:59:59 CLS Outpatient RidHeena ontiveros [id number] 03/12/2015 12:28:48 03/12/2015 23:59:59 CLS Outpatient Kaylynn Mendez [id number] 02/26/2015 12:14:33 02/26/2015 23:59:59 CLS Outpatient Brittni Yanez [id number] 02/13/2015 16:25:54 02/13/2015 23:59:59 CLS Outpatient Heena Dumont [id number] 01/30/2015 14:17:51 01/30/2015 23:59:59 CLS Outpatient GatoJohn tidwell [id number] 01/21/2015 16:19:01 01/21/2015 23:59:59 CLS Outpatient Kaylynn Mendez [id number] 01/15/2015 11:52:53 01/15/2015 23:59:59 CLS Outpatient Brittni Yanezle [id number] 01/13/2015 17:01:11 01/13/2015 23:59:59 CLS Outpatient Ridrama Heena [id number] 01/08/2015 16:13:07 01/08/2015 23:59:59 CLS Outpatient NELLY PAULSON [id number] 01/06/2015 22:32:06 01/06/2015 23:59:59 CLS Outpatient Brittni Yanez [id number] 01/06/2015 22:29:07 01/06/2015 23:59:59 CLS Outpatient GatoJohn [id number] 01/06/2015 22:18:08 01/06/2015 23:59:59 CLS Outpatient Ridrama Heena [id number] 01/06/2015 22:07:44 01/06/2015 23:59:59 CLS Outpatient Kaylynn Mendez [id number] 01/06/2015 21:59:31 01/06/2015 23:59:59 CLS Outpatient Ridrama Heena [id number] 01/06/2015 21:34:21 01/06/2015 23:59:59 CLS Outpatient Ridrama Heena [id number] 01/06/2015 21:27:10 01/06/2015 23:59:59 CLS Outpatient Ridrama Heena [id number] 09/25/2014 15:21:37 09/25/2014 23:59:59 CLS Outpatient Riddel, Heena [id number] 09/17/2014 12:03:37 09/17/2014 23:59:59 CLS Outpatient Kaylynn Mendez [id number] 09/04/2014 14:55:52 09/04/2014 23:59:59 CLS Outpatient Riddel, Heena [id number] 08/28/2014 15:55:13 08/28/2014 23:59:59 CLS Outpatient Walker, Kaylynn [id number] 07/11/2014 16:58:57 07/11/2014 23:59:59 CLS Outpatient Riddel, Heena [id number] 07/01/2014 16:34:59 07/01/2014 23:59:59 CLS Outpatient Riddel, Heena [id number] 06/25/2014 12:00:14 06/25/2014 23:59:59 CLS Outpatient WalkerKaylynn [id number] 06/12/2014 11:39:35 06/12/2014 23:59:59 CLS Outpatient WalkerKaylynn [id number] 06/06/2014 11:59:26 06/06/2014 23:59:59 CLS Outpatient WalkerKaylynn [id number] 05/27/2014 15:08:22 05/27/2014 23:59:59 CLS Outpatient Riddel, Heena [id number] 04/20/2014 10:40:05 04/20/2014 23:59:59 CLS Outpatient AmrikmarahYesica [id number] 04/18/2014 13:42:40 04/18/2014 23:59:59 CLS Outpatient John Hoskins [id number] 03/29/2014 18:22:10 03/29/2014 23:59:59 CLS Outpatient Na Jones [id number] 03/15/2014 11:09:41 03/15/2014 23:59:59 CLS Outpatient Riddel, Heena [id number] 2014 16:01:23 2014 23:59:59 CLS Outpatient Riddel, Heena [id number] 02/27/2014 15:43:03 02/27/2014 23:59:59 CLS Outpatient Riddel, Heena [id number] 02/13/2014 14:37:59 02/13/2014 23:59:59 CLS Outpatient Lena El [id number] 02/07/2014 16:02:37 02/07/2014 23:59:59 CLS Outpatient RidHeena ontiveros [id number] 02/03/2014 14:57:27 02/03/2014 23:59:59 CLS Outpatient Robert Na [id number] 01/30/2014 14:51:44 01/30/2014 23:59:59 CLS Outpatient Andrea, Kaylynn [id number] 01/24/2014 18:03:05 01/24/2014 23:59:59 CLS Outpatient Sundeep Russell [id number] 01/16/2014 15:06:43 01/16/2014 23:59:59 CLS Outpatient Walker, Kaylynn [id number] 01/10/2014 14:19:58 01/10/2014 23:59:59 CLS Outpatient Walker, Kaylynn [id number] 01/08/2014 15:17:14 01/08/2014 23:59:59 CLS Outpatient Walker, Kaylynn [id number] 12/05/2013 10:30:00 12/05/2013 23:59:59 CLS Outpatient Walker, Kaylynn [id number] 11/27/2013 16:07:46 11/27/2013 23:59:59 CLS Outpatient Odell Tierney [id number] 11/21/2013 15:55:27 11/21/2013 23:59:59 CLS Outpatient Walker, Kaylynn [id number] 10/23/2013 15:11:45 10/23/2013 23:59:59 CLS Outpatient Beau Brittnikitty Gudino [id number] 10/17/2013 14:15:55 10/17/2013 23:59:59 CLS Outpatient Ridrama Heena [id number] 10/12/2013 10:18:24 10/12/2013 23:59:59 CLS Outpatient Walker, Kaylynn [id number] 10/02/2013 17:02:12 10/02/2013 23:59:59 CLS Outpatient Riddel Heena [id number] 09/21/2013 13:58:21 09/21/2013 23:59:59 CLS Outpatient Walker, Kaylynn [id number] 09/20/2013 17:12:59 09/20/2013 23:59:59 CLS Outpatient Riddel Heena [id number] 09/14/2013 11:05:31 09/14/2013 23:59:59 CLS Outpatient Walker, Kaylynn [id number] 09/05/2013 20:28:03 09/05/2013 23:59:59 CLS Outpatient Sundeep Russell [id number] 09/04/2013 12:33:53 09/04/2013 23:59:59 CLS Outpatient Walker, Kaylynn [id number] 08/31/2013 10:56:51 08/31/2013 23:59:59 CLS Outpatient Walker, Kaylynn [id number] 08/23/2013 14:12:29 08/23/2013 23:59:59 CLS Outpatient Heena Dumont [id number] 08/10/2013 12:01:57 08/10/2013 23:59:59 CLS Outpatient Walker, Kaylynn [id number] 07/25/2013 16:54:38 07/25/2013 23:59:59 CLS Outpatient Walker, Kaylynn [id number] 07/18/2013 16:50:55 07/18/2013 23:59:59 CLS Outpatient Walker, Kaylynn [id number] 07/12/2013 16:37:50 07/12/2013 23:59:59 CLS Outpatient Walker, Kaylynn [id number] 06/28/2013 15:46:56 06/28/2013 23:59:59 CLS Outpatient Walker, Kaylynn [id number] 06/14/2013 15:51:30 06/14/2013 23:59:59 CLS Outpatient Walker, Kaylynn [id number] 06/08/2013 12:29:52 06/08/2013 23:59:59 CLS Outpatient Walker, Kaylynn [id number] 05/31/2013 21:58:00 05/31/2013 23:59:59 CLS Outpatient John Hoskins [id number] 05/31/2013 15:43:43 05/31/2013 23:59:59 CLS Outpatient Chadd Norris [id number] 05/18/2013 09:31:34 05/18/2013 23:59:59 CLS Outpatient Terese Davidson [id number] 05/10/2017 06:06:00 Document Registration [id number] 05/08/2016 21:05:00 Document Registration
== END 2018-05-09 14:46 | disposition home or self-care (01) ==
LOC: EDUNIT# 14:12 → ER 14:14
DX: H60.93 Unspecified otitis externa, bilateral (principal); E78.00 Pure hypercholesterolemia, unspecified; I10 Essential (primary) hypertension; K21.9 Gastro-esophageal reflux disease without esophagitis; M81.0 Age-related osteoporosis without current pathological fracture; F32.9 Major depressive disorder, single episode, unspecified; Z85.41 Personal history of malignant neoplasm of cervix uteri; Z85.43 Personal history of malignant neoplasm of ovary; Z87.19 Personal history of other diseases of the digestive system; Z88.6 Allergy status to analgesic agent; Z88.8 Allergy status to other drugs, medicaments and biological substances
CPT/HCPCS: 99282